=== PATIENT | male | born 1985 | race Caucasian/White ===

== ENCOUNTER 2021-04-10 09:28 | Inpatient (IN) | payer MEDICAID, SELFPAY ==
[2021-04-10] VITALS (22 sets, daily range): BP systolic 104–148; BP diastolic 72–93; PULSE 93–139; RESP 16–30; TEMP 36.9–37; O2SAT 96–100; BMI 24.8
--- NOTE | ~2021-04-10 | CT_ITS ---
EXAMINATION: CT chest abdomen pelvis wo con EXAM DATE: 04/10/2021 12:16 INDICATION: Ascites, rule out cirrhosis, hyperbilirubinemia . Vomiting, hematemesis for 2 days. Cirrh osis, black stools, abdominal distention. TECHNIQUE: Spiral CT of the chest, abdomen and pelvis was performed without contrast. Axial, baird l and sagittal images chest, abdomen and pelvis were reviewed. Coronal maximum intensity pixel image s of chest reviewed. The dose-length product (DLP) for this examination was 802.89 mGy-cm. The expo sure was tailored according to patient size (auto mA exposure control), and iterative reconstruction (ASIR) was used as additional dose reduction technique. There is no prior study for comparison. FINDINGS: CHEST: Right upper lobe cystic region measuring 3.5 cm without wall thickening, likely postinfectiou s. Some adjacent apical scarring. There are no pleural or pericardial effusions. Tracheobronchial tree is patent. There is no mediastinal, hilar or axillary lymphadenopathy. There is no pneumotho rax. Heart normal in size. No evidence of coronary arterial calcification. There is mild wall th ickening of the distal aspect of the esophagus, more likely esophagitis than cancer. ABDOMEN PELVIS: Atrophic liver, cirrhosis, hepatic steatosis, regenerating nodules and large amount o f ascites. Spleen, pancreas, adrenal glands are unremarkable. The gallbladder is moderately distended but otherwise unremarkable. There is no biliary duct dilation. There is no nephrolithiasis or hydr onephrosis. The prostate is unremarkable. The bladder is unremarkable. There is no retroperitonea l or pelvic lymphadenopathy. Small inguinal fat-containing hernias. Normal appendix is identified. Several loops of jejunum with air-fluid levels and moderate distentio n at 3.5 cm, probably ileus. There is expected amount of colonic stool. No free intraperitoneal ga s. The bones are unremarkable. IMPRESSION: 1. Mild distal esophageal wall thickening more likely esophagitis than cancer. 2. Cirrhosis, hepatic steatosis, regenerating nodules and large amount of ascites. 3. Several moderately distended jejunal loops probably ileus. 4. Gallbladder moderately distended but no calcified cholelithiasis. Please note that sensitivity fo r acute abdominal process is decreased due to ascites, mesenteric edema. Reviewed, dictated and finalized at location B. IMPRESSION: 1. Mild distal esophageal wall thickening more likely esophagitis than cancer. 2. Cirrhosis, hepatic steatosis, regenerating nodules and large amount of asci noman. 3. Several moderately distended jejunal loops probably ileus. 4. Gallbladder moderately distended but no calcified cholelithiasis. Please no te that sensitivity for acute abdominal process is decreased due to ascites, me senteric edema.
--- NOTE | ~2021-04-10 | US_ITS ---
EXAMINATION: US paracentesis abd w/image DATE: 04/10/2021 16:11 INDICATION: Ascites. TECHNIQUE: The procedure and its risks and benefits were discussed with the patient. Potential risks discussed included bleeding and infection. The skin was prepped and draped in sterile fashion. 1% lid ocaine was used for local anesthesia. Under ultrasound guidance, a 5 Fr catheter with trochar was adv anced into the ascites in the left lower quadrant. Fluid was aspirated into vacuum bottles. The kenya ter was removed, and a dressing was applied. There were no immediate complications. FINDINGS: Ultrasound images demonstrate ascites and the catheter within the fluid. IMPRESSION: 1. Successful ultrasound-guided paracentesis yielding 5000 mL of yellow fluid. Reviewed, dictated and finalized at location A.
--- NOTE | 2021-04-10 09:30 | ECG_ITS ---
Measurements Intervals [place] Rate: 135 P: 21 NH: 118 QRS: 12 QRSD: 94 T: 27 QT: 295 QTc: 442 Interpretive Statements SINUS TACHYCARDIA WITH SHORT NH INTERVAL BORDERLINE R WAVE PROGRESSION, ANTERIOR LEADS BORDERLINE T WAVE ABNORMALITY- INFERIOR LEADS ABNORMAL ECG Electronically Signed On 04-10-2021 10:53:23 CDT by Carl Fitzgerald D.O.
[2021-04-10 09:48] LABS: Hematocrit 34.1 % (42.0-52.0); Hemoglobin 11.7 g/dL (14.0-18.0); Mean Corpuscular HGB Conc 34.3 g/dl (32-36); Mean Corpuscular Hemoglobin 37.1 pg (26-34); Mean Corpuscular Volume 108.3 fl (80-100); Mean Platelet Volume 9.7 fl (7.4-10.4); Platelet Count Result 179 k/mm3 (150-375); Red Blood Count 3.15 M/mm3 (4.6-6.20); Red Cell Distribution Width 16.2 % (11.5-14.5); White Blood Count 12.6 K/mm3 (4.5-10.0)
--- NOTE | 2021-04-10 09:50 | PC.NURSE ---
Emesis of approx 100ml of dark red blood. NS and Zofran given as ordered.
[2021-04-10 10:00] LABS: Anion Gap 8 mmol/L (8-16); Bilirubin,Total 8.8 mg/dL (0.2-1.3); Blood Urea Nitrogen 15 mg/dL (9-20); Calcium 8.6 mg/dL (8.4-10.2); Carbon Dioxide 27 mmol/L (22-30); Chloride 96 mmol/L (98-107); Estimated CRCL calculation 159 ml/min; Estimated Glomerular Filt Rate > 60; Glucose 105 mg/dL (75-110); Potassium 4.7 mmol/L (3.4-5.0); Sodium 131 mmol/L (137-145)
--- NOTE | 2021-04-10 10:00 | ED.GENADULT ---
HPI - General Adult General Chief complaint: Nausea/Vomiting/Diarrhea Stated complaint: vomiting Time Seen by Provider: 04/10/21 09:30 Source: patient, EMS and RN notes reviewed Mode of arrival: EMS Limitations: no limitations History of Present Illness HPI narrative: Patient is 35 years old white male brought to the ED by ambulance complaining of vomiting blood for the last 2 days. Abdominal distention for the last 3 days. Black stool for the last 3 days. Patient denies having similar symptoms in the past. Patient quit smoking 1 month ago, drinks alcohol 2-3 times a week. Patient is telling me that liver cirrhosis runs in his family. Patient moved from [place] to [place] 2 years ago, works at [employer], lives alone. Last alcohol intake 2 days ago. Patient denies any fever or chills. Related Data Home Medications Medication Instructions Recorded Confirmed No Home Medications 04/10/21 04/10/21 Allergies Allergy/AdvReac Type Severity Reaction Status Date / Time No Known Allergies Allergy Verified 04/10/21 09:32 Review of Systems Review of Systems: Narrative: CONSTITUTIONAL: Denies fever, chills, or sweats. EYES: Denies visual changes, redness, or discharge. ENT: Denies rhinorrhea, congestion, sore throat, or otalgia. CARDIOVASCULAR: Denies chest pain, palpitations, or edema. RESPIRATORY: Denies cough or dyspnea. GASTROINTESTINAL: Denies abdominal pain, nausea, vomiting, or diarrhea. GENITOURINARY: Denies dysuria or hematuria. SKIN: Denies rash or itching. MUSCULOSKELETAL: Denies back pain, joint pain, or myalgia. NEUROLOGIC: Denies headache, numbness, or weakness. PSYCHIATRIC: Denies anxiety or depression. Exam Narrative: Exam Narrative: General appearance: Well-developed, well-nourished, sick looking Skin: Pale Head: Normocephalic, nontraumatic Eyes: Clear conjunctiva ENT: Oropharynx normal, ears normal, nose normal Neck: Supple, nontender Chest and respiratory: Airway patent, no respiratory distress, no accessory muscle use Heart: Tachycardia Abdomen: Distended abdomen, consistent with ascitis Vascular: Normal peripheral pulses, normal capillary refill. Musculoskeletal: Normal range of motion, nontender back Neurologic: Alert and oriented ?3, COMPLIANCE PROJECT MANAGER is normal as tested, no gross motor deficit Course Course Emergency Course: Guarded Consultations Consultation #1: DR Cat Date: 04/10/21 Time: 10:06 Consultation #2: DR ANDINO Date: 04/10/21 Time: 11:12 Vital Signs Vital signs: Vital Signs Temperature 36.9 C 04/10/21 09:26 Pulse Rate 139 H 04/10/21 09:26 Respiratory Rate 28 H 04/10/21 09:26 Blood Pressure 148/93 H 04/10/21 09:26 Pulse Oximetry 100 04/10/21 09:26 Temperature 36.9 C 04/10/21 09:26 Pulse Rate 139 H 04/10/21 09:26 Respiratory Rate 28 H 04/10/21 09:26 Blood Pressure 148/93 H 04/10/21 09:26 Pulse Oximetry 100 04/10/21 09:26 Medical Decision Making MDM Narrative Medical decision making narrative: Patient have history of alcohol abuse. Liver cirrhosis, esophageal varices, alcoholic gastritis and hepatitis are my concern. Labs, IV fluid, IV Protonix, IV octreotide IV Ativan ordered. Further plan to follow Differential Diagnosis Differential Diagnosis: Peptic ulcer disease, esophageal varices, liver cirrhosis, alcoholic hepatitis, alcoholic gastritis Vital Signs Vital Signs: Vital Signs Temperature 36.9 C 04/10/21 09:26 Pulse Rate 139 H 04/10/21 09:26 Respiratory Rate 28 H 04/10/21 09:26 Blood Pressure 148/93 H 04/10/21 09:26 Pulse Oximetry 100 04/10/21 09:26 Temperature 36.9 C 04/10/21 09:26 Pulse Rate 139 H 04/10/21 09:26 Respiratory Rate 28 H
[2021-04-10 10:01] LABS: Alanine Aminotransferase 51 U/L (4-50); Albumin Level 2.9 g/dL (3.5-5.1); Alkaline Phosphatase 139 U/L (38-126); Aspartate Amino Transferase 156 U/L (17-59); Lipase 176 U/L (23-300)
[2021-04-10] MEDS: PANTOPRAZOLE SODIUM IV 40 MG VIAL 80 MG IV PUSH (10:04)
[2021-04-10] MEDS: SODIUM CHLORIDE 0.9% IV 1,000 ML 999 ML IV CONT ×2 (10:04→10:05)
[2021-04-10] MEDS: LORazepam INJ (*CRX) 2 MG/ML VIAL 1 MG IV PUSH (10:04)
[2021-04-10] MEDS: ONDANSETRON INJ 4 MG/2 ML VIAL 8 MG IV PUSH (10:05)
[2021-04-10 10:10] LABS: Lymphocytes Absolute Manual 0.88 K/mm3 (1.1-4.5); Monocytes Absolute Manual 1.51 K/mm3 (0.1-0.90); Monocytes Percent Manual 12 % (3-9); Neutrophils Percent Manual 81 % (46-73); Total Cells Counted 100
[2021-04-10] MEDS: OCTREOTIDE ACETATE 50 MCG/ML VIAL IV PUSH (10:10)
[2021-04-10 10:11] LABS: Macrocytosis 1+ (NORMAL); Platelet Estimate Adequate (Adequate)
[2021-04-10 10:12] LABS: Poikilocytosis 2+ (NORMAL); Stomatocytes 1+ (NORMAL); Target Cells 1+ (NORMAL)
[2021-04-10 10:14] LABS: INR 1.4; Partial Thromboplastin Time 34.1 SECONDS (22.3-36.8); Prothrombin Time 17.7 Seconds (11.1-14.7)
[2021-04-10 10:19] LABS: Ethanol < 10 mg/dL (<10)
[2021-04-10 10:31] LABS: Add Urine Microscopic? YES; Appearance Urine Clear (Clear); Bilirubin Urine 2+ (Negative); Blood Urine Negative (Negative); Color Urine Amber (Yellow); Glucose Urine UA Negative (Negative); Ketones Urine 1+ mg/dL (Negative); Leukocyte Esterase Ur Negative LEU/UL (Negative); Mucus Urine Heavy /lpf; Nitrate Urine Negative (Negative); Protein Urine 2+ mg/dL (Negative); RBC Urine 0-2 /hpf (0-2); Squamous Epithelial Cell Urine Rare /hpf (Few); WBC Urine 0-3 /hpf
[2021-04-10 10:33] LABS: Specific Grav Ur 1.034 (1.001-1.035)
[2021-04-10 10:48] LABS: Amphetamine Screen Urine Negative (Negative); Barbiturate Screen Urine Negative (Negative); Benzodiazepines Screen Urine Negative (Negative); Cannabinoid Screen Urine Negative (Negative); Cocaine Screen Urine Negative (Negative); Methadone Screen Urine Negative (Negative); Opiate Screen Urine Negative (Negative); Phencyclidine Screen Urine Negative (Negative)
[2021-04-10 10:54] LABS: Hematocrit 30.7 % (42.0-52.0); Hemoglobin 10.7 g/dL (14.0-18.0)
--- NOTE | 2021-04-10 11:30 | ADMGEN ---
This patient, Lukas Diaz, was admitted to Intensive Care Unit-1. Patient/family oriented to hospital policies and general routines including ID bracelet, bed and alarms, visiting hours, pain management, procedures, bathroom and other care routines, personal items, smoking policy, room service/diet, and visiting hours. Information on how to activate the Rapid Response Team has been discussed. Patient/Family are encouraged to report perceived risks to care and to ask questions if they do not understand what they are told or what they should do.
[2021-04-10] MEDS: THIAMINE HCL INJ 100 MG, FOLIC ACID INJ 1 MG, MULTIVITAMINS-12 INJ VIAL 1 5 ML, MULTIVI... IV CONT (11:37)
--- NOTE | 2021-04-10 11:50 | WPDINTPN ---
Progress Note: A&P Assessment and Plan (1) Acute GI bleeding: Code(s): K92.2 - Gastrointestinal hemorrhage, unspecified Status: Acute (2) Ascites: Qualifiers: Ascites type: due to alcoholic hepatitis Qualified Code(s): K70.11 - Alcoholic hepatitis with ascites Code(s): R18.8 - Other ascites Status: Acute (3) Hyperbilirubinemia: Code(s): E80.6 - Other disorders of bilirubin metabolism Status: Acute (4) Alcoholic hepatitis: Code(s): K70.10 - Alcoholic hepatitis without ascites Status: Acute Assessment and Plan: Discriminant factor 39.6 and MELD score of 22 Subjective Date/time seen: 04/10/21 11:50 Interval history: Hematemesis Objective Data Vital Signs Vital Signs: Vital Signs - 24 hr 04/10/21 09:26 04/10/21 09:38 04/10/21 09:45 Temperature 98.5 F Pulse Rate 139 H 138 H 139 H Respiratory Rate 28 H 23 H 16 Blood Pressure 148/93 H Pulse Oximetry 100 100 04/10/21 10:01 04/10/21 10:09 04/10/21 10:10 Temperature Pulse Rate 130 H 130 H 135 H Respiratory Rate 25 H 27 H 30 H Blood Pressure 133/91 H Pulse Oximetry 100 100 99 04/10/21 10:15 04/10/21 10:33 04/10/21 10:47 Temperature Pulse Rate 110 H 118 H 118 H Respiratory Rate 19 19 22 H Blood Pressure 140/93 H Pulse Oximetry 98 100 100 04/10/21 10:51 04/10/21 11:00 04/10/21 11:02 Temperature Pulse Rate 114 H 122 H 119 H Respiratory Rate 20 26 H 25 H Blood Pressure Pulse Oximetry 99 98 100 04/10/21 11:06 04/10/21 11:34 Temperature Pulse Rate 118 H 112 H Respiratory Rate 24 H 17 Blood Pressure 128/89 120/82 Pulse Oximetry 100 100 Intake/Output Intake/Output: Intake & Output 04/07/21 04/08/21 04/09/21 04/10/21 23:59 23:59 23:59 23:59 Intake Total 1999 Balance 1999 Meds/Results Medications: Active Medications Generic Name Dose Route Start Last Admin Trade Name Freq PRN Reason Stop Dose Admin Octreotide Acetate 500 mcg/ 100 mls @ 10 mls/hr 04/10/21 09:55 04/10/21 10:49 Dextrose IV CONT 50 mcg/hr .Q10H LIDA 10 mls/hr Administration 50 MCG/HR Thiamine HCl 100 mg/ Folic 1,013.2 mls @ 100 mls/hr 04/10/21 10:23 04/10/21 11:37 Acid 1 mg/ Multivitamins 5 ml/ IV CONT 04/10/21 20:30 100 mls/hr Multivitamins 5 ml/ Magnesium .Q10H8M ONE Administration Sulfate 1 gm/ Dextrose/ Lactated Ringer's Sodium Chloride 1,000 mls @ 200 mls/hr 04/10/21 10:25 Normal Saline Iv IV CONT .Q5H LIDA Ondansetron HCl 4 mg 04/10/21 10:24 Ondansetron Inj 4 Mg/2 Ml Vial IV PUSH Q4H PRN Nausea Pantoprazole Sodium 40 mg 04/11/21 09:00 Pantoprazole Sodium Iv 40 Mg Vial IV PUSH QAM [facility] Labs Labs: Laboratory Results - last 24 hr 04/10/21 04/10/21 04/10/21 09:37 09:38 09:38 WBC 12.6 H RBC 3.15 L Hgb 11.7 L Hct 34.1 L MCV 108.3 H MCH 37.1 H MCHC 34.3 RDW 16.2 H Plt Count 179 MPV 9.7 Immature Gran % (Auto) Not Reportable Neut % (Auto) Not Reportable Lymph % (Auto) Not Reportable Wayne % (Auto) Not Reportable Eos % (Auto) Not Reportable Baso % (Auto) Not Reportable Lymph # (Auto) Not Reportable Wayne # (Auto) Not Reportable Eos # (Auto) Not Reportable Baso # (Auto) Not Reportable Abs Immat Gran (auto) Not Reportable Absolute Neuts (auto) Not Reportable Absolute Nucleated RBC Not Reportable Total Counted 100 Neutrophils % (Manual) 81 H Lymphocytes % (Manual) 7.0 L Monocytes % (Manual) 12 H Nucleated RBC % Not Reportable Abs Lymphs (Manual) 0.88 L Abs Monocytes (Manual) 1.51 H Platelet Estimate Adequate Poikilocytosis 2+ Macrocytosis 1+ Target Cells 1+ Stomatocytes 1+ PT 17.7 H INR 1.4 APTT 34.1 Sodium Potassium Chloride Carbon Dioxide Anion Gap BUN Creatinine Estim Creat Clear Calc Estimated GFR Glucose Calcium Total
--- NOTE | 2021-04-10 12:13 | WPDCNINT ---
Assessment and Plan Assessment and plan (1) Acute GI bleeding: Code(s): K92.2 - Gastrointestinal hemorrhage, unspecified Status: Acute Assessment and Plan: Hematemesis and melena per patient. For 2-3 days -likely variceal bleed, esophagitis, gastritis, ulcers -continue octreotide and PPI infusion -GI has been consulted, await evaluation and recommendation (2) Hematemesis: Code(s): K92.0 - Hematemesis Status: Acute Assessment and Plan: Will monitor hemoglobin every 6 hours -will transfuse as needed (3) Alcoholic hepatitis: Code(s): K70.10 - Alcoholic hepatitis without ascites Status: Acute Assessment and Plan: CT scan of the abdomen and pelvis 04/10/2021: 1. Mild distal esophageal wall thickening more likely esophagitis than cancer. 2. Cirrhosis, hepatic steatosis, regenerating nodules and large amount of ascites. 3. Several moderately distended jejunal loops probably ileus. 4. Gallbladder moderately distended but no calcified cholelithiasis. Please note that sensitivity for acute abdominal process is decreased due to ascites, mesenteric edema Meld score of 22 (4) Ascites: Qualifiers: Ascites type: due to alcoholic hepatitis Qualified Code(s): K70.11 - Alcoholic hepatitis with ascites Code(s): R18.8 - Other ascites Status: Acute Assessment and Plan: Abdomen firm and distended with large amount of ascites as seen on the CT scan of the abdomen and pelvis -will have interventional radiology perform paracentesis orders have fluid analysis, cytology, Gram stain and culture have been ordered (5) Hyperbilirubinemia: Code(s): E80.6 - Other disorders of bilirubin metabolism Status: Acute Assessment and Plan: Hyperbilirubinemia secondary to hepatic steatosis cirrhosis, alcoholic hepatitis (6) Alcohol abuse: Code(s): F10.10 - Alcohol abuse, uncomplicated Status: Acute Assessment and Plan: Patient with history of alcohol use, last drink 2 days ago. Patient states he drinks occasionally and socially. Large binge drinking was on Additional Plan DVT prophylaxis: SCDs Stress ulcer prophylaxis: Protonix infusion Discussed with patient at length and updated with his condition and plan of care. He is aware that he is on multiple infusion for possible variceal bleed versus GI bleed secondary to ulcer, gastritis, esophagitis. He is also aware that he may be getting a paracentesis is his CT scan shows large amount of ascites. Code status: Full code Critical care time spent: 45 minutes This dictation may have been done utilizing a voice recognition system. Attempts have been made to correct errors. However, there may be uncorrected grammatical, spelling, and recognition errors present. Due to a high probability of clinically significant, life threatening deterioration, the patient required my highest level of preparedness to intervene emergently and I personally spent this critical care time directly and personally managing the patient. This critical care time included obtaining a history; examining the patient; pulse oximetry; ordering and review of studies; arranging urgent treatment with development of a management plan; evaluation of patient's response to treatment; frequent reassessment; and discussions with other providers. It was exclusive of separately billable procedures and treating other patients and teaching time. Please see Assessment and Plan section and the rest of the note for further information on patient assessment and treatment Tool And Die Manager Consult Note Consult date: 04/10/21 Time Seen: 11:38 Reason for consult: Hematemesis, melena, abdominal distension, hyperbilirubinemia, elevated LFTs HPI: Lukas Diaz is a 35 year old male with no past medical history stents to the ED on 04/10/2021 with complaints of hematemesis x2 days melena x3 days and abdominal distention x3 days. He warner
[2021-04-10] MEDS: SODIUM CHLORIDE 0.9% IV 500 ML 999 ML IV CONT (13:04)
--- NOTE | 2021-04-10 13:05 | PM.IMHP ---
H&P: HPI History of Present Illness Date/Time: 04/10/21 1230 this is a 35-year-old male patient who has a history of alcoholism. The patient was brought to the emergency room by ambulance due to hematemesis and melena. The patient stated that he has been vomiting blood for the last 2 days and had some abdominal distention for at least 3 days. He also noted black stools for last 3 days. He denies ever having any colonoscopy or EGD. He does not have a GI specialist. The patient states that he drinks alcohol 2 to 3 times a week. He typically drinks 6 pt of beer a day over an 8 hour on those 2 to 3 times a week that he does drink. The patient stated that he has never been diagnosed with cirrhosis of the liver. He states that his mother and her father had not alcoholic liver disease. Patient's hemoglobin initially was 11.7 and then he received some fluids and his hemoglobin dropped down to 10.7. Total bili room 8.8. AST 156. ALT 51. Alkaline phosphatase 139. Albumin 2.9. Urine bili room 2+. Urine uro bilirubin 4.0. CT was read as the following 1. Mild distal esophageal wall thickening more likely esophagitis than cancer. 2. Cirrhosis, hepatic steatosis, regenerating nodules and large amount of ascites. 3. Several moderately distended jejunal loops probably ileus. 4. Gallbladder moderately distended but no calcified cholelithiasis. Please note that sensitivity for acute abdominal process is decreased due to ascites, mesenteric edema. The patient was admitted to ICU in the power house engineer has been consulted. Octreotide drip was started. Protonix drip was started and he was given a banana bag in the emergency. Patient is being admitted to inpatient status and I see on the date of service of 04/10/2020 Chief Complaint: gi bleed Review of Systems Review of Systems: All systems reviewed & are unremarkable except as noted in HPI and below Constitutional: Constitutional: Reports as per HPI and Reports no additional constitutional complaints Eyes: Eyes: Reports as per HPI and Reports no additional eye complaints ENT: Reports system reviewed and no additional complaints, except as documented and Reports Normal hearing present Cardiovascular: Cardiovascular: Reports no additional cardiovascular complaints Respiratory: Respiratory: Reports no additional respiratory complaints and Reports no additional respiratory complaints Gastrointestinal: Gastrointestinal: Reports as per HPI and Reports no additional gastrointestinal complaints Musculoskeletal: Musculoskeletal: Reports no additional musculoskeletal complaints Integumentary/Breasts: Skin/Breast: Reports system reviewed and no additional complaints, except as docu and Reports as per HPI Neurologic: Reports system reviewed and no additional complaints, except as documented, Reports as per HPI and Reports Normal hearing present Psychiatric: Psychiatric: Reports no additional psychiatric complaints and Reports as per HPI Endocrine: Endocrine: Reports no additional endocrine complaints Hematologic/Lymphatic: Hematologic/Lymphatic: Reports no additional hematologic/lymphatic complaints Allergic/Immunologic: Allergic/Immunologic: Reports no additional allergic/immunologic complaints FOR[facility]LY [facility], [facility] Past Medical History Medical History (Updated 04/10/21 @ 13:28 by Willa Dominguez NP) Alcohol abuse Alcoholic hepatitis Tobacco abuse Surgical History Surgical History (Updated 04/10/21 @ 13:28 by Willa Dominguez NP) No pertinent past surgical history Family History Family History (Updated 04/10/21 @ 13:29 by Willa Dominguez NP) Mother Liver disease Other Cirrhosis Social History Social History (Updated 04/10/21 @ 13:30 by Willa Dominguez NP) Social History: The patient stated that he just quit smoking approximately 1 month ago. The patient had started smoking when he was 10 years old. The patient denies any alcohol or illicit drugs. The patient states that he drinks 6 pt of a
[2021-04-10 13:34] LABS: Albumin Level 2.9 g/dL (3.5-5.1)
[2021-04-10 17:09] LABS: Hematocrit 27.9 % (42.0-52.0); Hemoglobin 9.4 g/dL (14.0-18.0)
[2021-04-10 17:46] LABS: Appearance Peritoneal Fluid Cloudy (Clear); Color Peritoneal Fluid Yellow (Colorless); Neutrophils Peritoneal Fluid 47 % (0-25); Nucleated Cells Peritoneal Flu 324 /uL (0-500); RBC Peritoneal Fluid 0 /uL (0-100000); Source Peritoneal Fluid Peritoneal Fluid
[2021-04-10 17:47] LABS: Eosinophils Peritoneal Fluid 0 %; Lymphocytes Peritoneal Fluid 3 %; Macrophages Peritoneal Fluid 41 %; Mesothelial Cells Peritoneal Fluid 9 %; Monocytes Peritoneal Fluid 0 %; Other Cells Peritoneal Fluid 0 %
[2021-04-10 22:34] LABS: Hematocrit 29.2 % (42.0-52.0)
[2021-04-11] VITALS (14 sets, daily range): BP systolic 82–124; BP diastolic 49–91; PULSE 87–102; RESP 12–21; TEMP 36.4–36.9; O2SAT 96–100
[2021-04-11 05:23] LABS: Basophils Absolute Auto 0.1 K/mm3 (0.0-0.1); Eosinophils Absolute Auto 0.1 K/mm3 (0-0.3); Hematocrit 30.5 % (42.0-52.0); Hemoglobin 10.5 g/dL (14.0-18.0); Immature Granulocyte Absolute 0.08 K/mm3 (0.00-0.031); Immature Granulocyte Percent A 0.8 % (0-0.5); Lymphocytes Absolute Auto 1.28 K/mm3 (0.9-3.2); Lymphocytes Percent Auto 13.2 % (18.3-44.2); Mean Corpuscular HGB Conc 34.4 g/dl (32-36); Mean Corpuscular Hemoglobin 37.5 pg (26-34); Mean Corpuscular Volume 108.9 fl (80-100); Mean Platelet Volume 9.3 fl (7.4-10.4); Monocytes Absolute Auto 1.2 K/mm3 (0.1-0.6); Platelet Count Result 160 k/mm3 (150-375); Red Cell Distribution Width 16.5 % (11.5-14.5); White Blood Count 9.7 K/mm3 (4.5-10.0)
[2021-04-11 05:37] LABS: Alanine Aminotransferase 45 U/L (4-50); Albumin Level 2.4 g/dL (3.5-5.1); Alkaline Phosphatase 109 U/L (38-126); Anion Gap 5 mmol/L (8-16); Aspartate Amino Transferase 141 U/L (17-59); Bilirubin,Total 7.6 mg/dL (0.2-1.3); Blood Urea Nitrogen 10 mg/dL (9-20); Calcium 7.7 mg/dL (8.4-10.2); Carbon Dioxide 26 mmol/L (22-30); Chloride 102 mmol/L (98-107); Estimated CRCL calculation 135 ml/min; Estimated Glomerular Filt Rate > 60; Glucose 80 mg/dL (75-110); Magnesium 2.1 mg/dL (1.6-2.3); Phosphorus 2.9 mg/dL (2.5-4.5); Potassium 3.6 mmol/L (3.4-5.0); Sodium 133 mmol/L (137-145)
[2021-04-11 05:38] LABS: Lactic Acid Reflex 1.5 mmol/L (0.7-2.1)
[2021-04-11 06:12] LABS: INR 1.5; Partial Thromboplastin Time 34.9 SECONDS (22.3-36.8); Prothrombin Time 19.1 Seconds (11.1-14.7)
[2021-04-11 07:08] LABS: Hepatitis B Surface Antigen Negative (Negative)
[2021-04-11 07:13] LABS: HAV RESULT Negative (Negative); Hepatitis B Core IgM Result Negative (Negative)
[2021-04-11 07:25] LABS: Hepatitis C Virus Antibody Negative (Negative)
[2021-04-11] MEDS: ALBUMIN HUMAN 25% 25 GM/100 ML 100 ML IVPB (08:18)
[2021-04-11] MEDS: ONDANSETRON INJ 4 MG/2 ML VIAL IV PUSH (08:31)
--- NOTE | 2021-04-11 09:12 | WPDINTPN ---
Progress Note: A&P Assessment and Plan (1) Acute GI bleeding: Code(s): K92.2 - Gastrointestinal hemorrhage, unspecified Status: Acute Assessment and Plan: Hematemesis and melena per patient. For 2-3 days -likely variceal bleed, esophagitis, gastritis, ulcers -continue octreotide and PPI infusion -GI has been consulted, await evaluation and recommendation -hemoglobin has been stable episodes of hematemesis overnight (2) Hematemesis: Code(s): K92.0 - Hematemesis Status: Acute Assessment and Plan: Will monitor hemoglobin every 6 hours -will transfuse as needed (3) Alcoholic hepatitis: Code(s): K70.10 - Alcoholic hepatitis without ascites Status: Chronic Assessment and Plan: CT scan of the abdomen and pelvis 04/10/2021: 1. Mild distal esophageal wall thickening more likely esophagitis than cancer. 2. Cirrhosis, hepatic steatosis, regenerating nodules and large amount of ascites. 3. Several moderately distended jejunal loops probably ileus. 4. Gallbladder moderately distended but no calcified cholelithiasis. Please note that sensitivity for acute abdominal process is decreased due to ascites, mesenteric edema Meld score of 22 (4) Ascites: Qualifiers: Ascites type: due to alcoholic hepatitis Qualified Code(s): K70.11 - Alcoholic hepatitis with ascites Code(s): R18.8 - Other ascites Status: Acute Assessment and Plan: Abdomen firm and distended with large amount of ascites as seen on the CT scan of the abdomen and pelvis -status post ultrasound-guided paracentesis by Interventional Radiology removal of 5 times in the limb fluid -given albumin this morning (5) Hyperbilirubinemia: Code(s): E80.6 - Other disorders of bilirubin metabolism Status: Acute Assessment and Plan: Hyperbilirubinemia secondary to hepatic steatosis cirrhosis, alcoholic hepatitis -improving (6) Alcohol abuse: Code(s): F10.10 - Alcohol abuse, uncomplicated Status: Chronic Assessment and Plan: Patient with history of alcohol use, last drink 2 days ago. Patient states he drinks occasionally and socially. Large binge drinking was on -continue folic acid and thiamine -will watch for alcohol withdrawal/DTs Additional Plan DVT prophylaxis: SCDs Stress ulcer prophylaxis: Protonix infusion Discussed with patient updated with his condition and plan of care. I answered all questions. Code status: Full code Critical care time spent: 34 minutes This dictation may have been done utilizing a voice recognition system. Attempts have been made to correct errors. However, there may be uncorrected grammatical, spelling, and recognition errors present. Due to a high probability of clinically significant, life threatening deterioration, the patient required my highest level of preparedness to intervene emergently and I personally spent this critical care time directly and personally managing the patient. This critical care time included obtaining a history; examining the patient; pulse oximetry; ordering and review of studies; arranging urgent treatment with development of a management plan; evaluation of patient's response to treatment; frequent reassessment; and discussions with other providers. It was exclusive of separately billable procedures and treating other patients and teaching time. Please see Assessment and Plan section and the rest of the note for further information on patient assessment and treatment Subjective Date/time seen: 04/11/21 09:12 Interval history: Reason for consult: Hematemesis, melena, abdominal distension, hyperbilirubinemia, elevated LFTs -04/10/2021 paracentesis per IR, removal of 500o mL of fluid 04/11/2021: Patient seen and examined the ICU. Patient denies any chest pain, shortness of breath, abdominal pain, nausea vomiting. Feels better this morning. Had paracentesis done yesterday with removal
[2021-04-11] MEDS: LACTATED RINGERS 1,000 ML 150 ML IV CONT (10:51)
--- NOTE | 2021-04-11 11:40 | WPDANESEPPF ---
Anes - Initial Pre Proc Eval Procedure: Operation Date: 04/11/21 12:30 Proposed Procedures p Esophagogastroduodenoscopy - Eric Oconnell MD Date/Time: 04/11/21 11:40 Surgeon: Karsten Gottlieb MD Pre Op Diagnosis: GI Bleed, Hematemesis, Sinus Tachy, Hyperbili, Patient Data Age: 35 Gender: M Height: 5 ft 7 in Weight: 73.2 kg Last Vital Signs Temp 97.8 F 04/11/21 10:00 Pulse 93 04/11/21 10:57 Resp 18 04/11/21 10:57 BP 111/78 04/11/21 10:57 Pulse Ox 100 04/11/21 10:57 Allergies Allergy/AdvReac Type Severity Reaction Status Date / Time No Known Allergies Allergy Verified 04/11/21 10:53 Home Medications Medication Instructions Recorded Confirmed Type No Home Medications 04/10/21 04/10/21 History Laboratory Tests 04/10/21 04/10/21 04/10/21 09:37 15:20 15:20 WBC RBC Hgb Hct MCV MCH MCHC RDW Plt Count MPV Immature Gran % (Auto) Neut % (Auto) Lymph % (Auto) Anson % (Auto) Eos % (Auto) Baso % (Auto) Lymph # (Auto) Anson # (Auto) Eos # (Auto) Baso # (Auto) Abs Immat Gran (auto) Absolute Neuts (auto) Absolute Nucleated RBC Nucleated RBC % PT INR APTT Sodium Potassium Chloride Carbon Dioxide Anion Gap BUN Creatinine Estim Creat Clear Calc Estimated GFR Glucose Lactic Acid Calcium Phosphorus Magnesium Total Bilirubin AST ALT Alkaline Phosphatase Total Protein Albumin 2.9 g/dL L g/dL (3.5-5.1) Peritoneal Source Peritoneal fluid Peritoneal Color Yellow (Colorless) Peritoneal Appearance Cloudy A (Clear) Peritoneal RBC 0 /uL /uL ([id number]) Periton Nuc Cells 324 /uL /uL (0-500) Periton Neutrophils 47 % H % (0-25) Periton Lymphocytes 3 % % Peritoneal Monocytes 0 % % Peritoneal Eosinophils 0 % % Periton Mesothelial 9 % % Periton Macrophages 41 % % Peritoneal Other Cells 0 % % Peritoneal Tot Protein Peritoneal Albumin Pending Peritoneal LDH Peritoneal Glucose Peritoneal Amylase Pending Hepatitis A IgM Ab Hep Bs Antigen Hep B Core IgM Ab Hepatitis C Ab Screen 04/10/21 04/10/2104/10/21 15:20 17:00 22:27 WBC RBC Hgb 9.4 g/dL L g/dL 10.0 g/dL L g/dL (14.0-18.0) (14.0-18.0) Hct 27.9 % L % 29.2 % L % (42.0-52.0) (42.0-52.0) MCV MCH MCHC RDW Plt Count MPV Immature Gran % (Auto) Neut % (Auto) Lymph % (Auto) Anson % (Auto) Eos % (Auto) Baso % (Auto) Lymph # (Auto) Anson # (Auto) Eos # (Auto) Baso # (Auto) Abs Immat Gran (auto) Absolute Neuts (auto) Absolute Nucleated RBC Nucleated RBC % PT INR APTT Sodium Potassium Chloride Carbon Dioxide Anion Gap BUN Creatinine Estim Creat Clear Calc Estimated GFR Glucose Lactic Acid Calcium Phosphorus Magnesium Total Bilirubin
--- NOTE | 2021-04-11 11:59 | WPDGICN ---
Assessment and Plan Assessment and plan (1) Acute GI bleeding: Code(s): K92.2 - Gastrointestinal hemorrhage, unspecified Status: Acute Assessment and Plan: we are going to proceed with urgent EGD- differential diagnosis variceal bleeding, ulcer, esophagitis, etc continue for now on iv protonix, octreotide and antibiotics monitor h/h (2) Hematemesis: Code(s): K92.0 - Hematemesis Status: Acute Assessment and Plan: egd today, he is npo. More recommendations after scope. denies any more vomiting today (3) Acute blood loss anemia: Code(s): D62 - Acute posthemorrhagic anemia Status: Acute Assessment and Plan: monitor hb, if less than 7 then transfuse (4) Alcoholic hepatitis: Code(s): K70.10 - Alcoholic hepatitis without ascites Status: Chronic Assessment and Plan: decompensated cirrhosis (new diagnosis), already had paracentesis with 5 L removed katelynn discriminant function 35 hepatitis panel negative nutrition support, thiamine, MVI and encourage to eat (5) Ascites: Qualifiers: Ascites type: due to alcoholic hepatitis Qualified Code(s): K70.11 - Alcoholic hepatitis with ascites Code(s): R18.8 - Other ascites Status: Acute Assessment and Plan: no evidence of SBP but on antibiotics because presentation here with upper GIB if renal function tolerates then will start on low dose aldactone and lasix 2g na diet quit drinking etoh GI Consult Note Consult date/time: 04/11/21 11:59 Reason for consult: hematemesis, melena and alcoholic cirrhosis HPI: Lukas Diaz is a 35 year old male who has not seen a doctor for a while and alcoholism (2 pints every other day) who came to emergency room with new onset of hematemesis x2 days and dark tarry stools, also noted more abdominal distention with increase abdominal girth. He has never been diagnosed with liver disease, in fact does not take any medications. He was admitted to ICU, started on protonix iv, octreotide drip and rocephin. Hb 11.7, plat 170, inr 1.5, lactic 1.5, ast 150, alt 50, bili 8.8. CT scan a/p reviewed and showed mild distal esophageal wall thickening more likely esophagitis, cirrhosis, hepatic steatosis, regenerating nodules and large amount of ascites, several moderately distended jejunal loops probably ileus. Never had EGD. Review of Systems Constitutional: Constitutional: Reports weakness Eyes: Eyes: Denies blurry vision ENT: Reports Normal hearing present Cardiovascular: Cardiovascular: Denies chest pain Respiratory: Respiratory: Denies cough Gastrointestinal: Gastrointestinal: Reports melena, Reports nausea, Reports vomiting and Reports hematemesis Genitourinary: Genitourinary: Denies dysuria Musculoskeletal: Musculoskeletal: Denies neck pain Integumentary/Breasts: Skin/Breast: Denies dry skin Neurologic: Denies Abnormal speech present Psychiatric: Psychiatric: Denies confusion [facility] Past Medical History Medical History (Updated 04/11/21 @ 12:08 by Eric Oconnell MD) Acute blood loss anemia Alcohol abuse Alcoholic hepatitis Tobacco abuse Surgical History Surgical History (Updated 04/10/21 @ 13:28 by Willa Dominguez NP) No pertinent past surgical history Family History Family History (Updated 04/10/21 @ 13:29 by Willa Dominguez NP) Mother Liver disease Other Cirrhosis Social History Social History (Updated 04/10/21 @ 13:30 by Willa Dominguez NP) Social History: The patient stated that he just quit smoking approximately 1 month ago. The patient had started smoking when he was 10 years old. The patient denies any alcohol or illicit drugs. The patient states that he drinks 6 pt of alcohol a day on the days that he drinks. He typically drinks 2-3 days a week. The patient is a full code. 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 Smoking packs per day: 0.5 Smoki
[2021-04-11] MEDS: THIAMINE HCL 200 MG/2 ML VIAL 100 MG IV PUSH (13:14)
[2021-04-11] MEDS: FOLIC ACID 1 MG/0.2 ML INJ IV PUSH (15:44)
--- NOTE | 2021-04-11 16:04 | PM.DS ---
DS: Admitting Diagnosis Admitting Diagnosis Admitting Diagnosis: Hematemesis DS: Discharge Diagnosis Discharge Diagnosis (1) Acute GI bleeding: Code(s): K92.2 - Gastrointestinal hemorrhage, unspecified Status: Acute (2) Hematemesis: Code(s): K92.0 - Hematemesis Status: Acute (3) Alcohol abuse: Code(s): F10.10 - Alcohol abuse, uncomplicated Status: Chronic (4) Ascites: Qualifiers: Ascites type: due to alcoholic hepatitis Qualified Code(s): K70.11 - Alcoholic hepatitis with ascites Code(s): R18.8 - Other ascites Status: Acute (5) Hyperbilirubinemia: Code(s): E80.6 - Other disorders of bilirubin metabolism Status: Acute (6) Alcoholic hepatitis: Code(s): K70.10 - Alcoholic hepatitis without ascites Status: Chronic DS: Summary Hospital Course Reason for hospitalization: 35yo male patient who has a history of alcoholism here for hematemesis and melena. please see H&P for details. Hospital Course: Patient presented to the ED by ambulance due to hematemesis and melena. The patient stated that he has been vomiting blood for the last 2 days and had some abdominal distention for at least 3 days. He also noted black stools for last 3 days. He denies ever having any colonoscopy or EGD. He does not have a GI specialist. Hemoglobin initially was 11.7 but dropped to 9.4. He did receive IV fluids. HH monitored serially and Hgb climbed to 10.5 and remained stable. He did not require transfusion. His total bili room 8.8, AST 156, ALT 51. AP 139, Albumin 2.9. CT of the Abdomen/Pelvis showing mild distal esophageal wall thickening more likely esophagitis than cancer, cirrhosis, hepatic steatosis, regenerating nodules and large amount of ascites, several moderately distended jejunal loops probably ileus and moderately distended gallbladder. Octreotide drip and Protonix drip started and he was given a banana bag in the emergency dept. The patient was admitted to ICU. Patient followed by GI and Technical Maintenance Technician. WBC mildly elevated on admission but then normalized. Plt count remained normal. PT 17.7 with INR was 1.4; PTT normal. LFTs improved on repeat. Hepatitis panel negative. UDS negative. Alcohol <10. Lipase normal. Patient underwent paracentesis with removal of 5Liters of yellowish fluid. The fluid appeared cloudy with 324 nucleated cells with 47% neutrophils (PMN 150) and 41% macrophages. Other studies pending. [place] unlikely he had SBP. 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 We stop the octreotide. He was switched to oral Protonix. Was started on Lasix and Aldactone. Was educated about the benefits of abstain from alcohol. Was explained to him in detail about the CT scan findings of cirrhosis and the risks of continuing to drink alcohol. He was also started on thiamine and folate once the banana bag was complete. No evidence of alcohol withdrawal. Patient was eating normally after his procedures with no abdominal symptoms thus felt ileus was transient. Patient overall did well. He felt comfortable for discharge. He will follow up with GI physician for close monitoring. He was able to be discharged home on 04/11/21 Status at Discharge Cognitive/behavioral status at discharge: stable Time Spent with Patient Time attestation: Total time spent providing and/or coordinating discharge services: 40 minutes Time spent: Greater than 30 minutes Specific discharge activities: Patient Education. Discussed with other providers. Exam Narrative: Exam Narrative: AF 98.3 105/75 100 13 100% ra Gen - NARD Chest - clear bilaterally. nml RR CV - RRR S1/S2; Tele showing no significant dysrhythmias Abd - Soft, mildly protuberant, mild epigastric tenderness, +BS Ext - No pedal edema. diffuse muscle wasting Psych - Nml mood and affect. no tremors. Skin
[2021-04-13 22:06] LABS: Amylase Peritoneal Fluid 26 U/L
[2021-04-15 20:27] LABS: Glucose Peritoneal Fluid 141 mg/dL; LDH Peritoneal Fluid 48 U/L (<63); Total Protein Peritoneal Fluid <3.0 g/dL
[2021-04-16 00:55] LABS: Albumin Peritoneal Fluid 0.4 g/dL
--- NOTE | 2021-04-16 11:02 | PC.NURSE ---
Peritoneal fluid cx is negative. Dr. Chery greenfield.
== END 2021-04-11 17:30 | disposition home or self-care (01) | DRG 253 ==
LOC: ANHED 11:12 → ANHICU 04-11 08:01
PROVIDERS: Internal Medicine; Internal Medicine Gastroenterology; Nurse Practitioner; Admitting Provider Internal Medicine; Emergency Provider Emergency Medicine; Visit Provider Internal Medicine
PROC: 0DJ08ZZ Inspection of Upper Intestinal Tract, Via Natural or Artificial Opening Endoscopic (ICD-10-PCS; CPT 43235; principal; 2021-04-11 12:30)
DX: K92.2 Gastrointestinal hemorrhage, unspecified (principal); D62 Acute posthemorrhagic anemia; K70.11 Alcoholic hepatitis with ascites; K70.31 Alcoholic cirrhosis of liver with ascites; F10.20 Alcohol dependence, uncomplicated; K20.90 Esophagitis, unspecified without bleeding; K44.9 Diaphragmatic hernia without obstruction or gangrene; K29.70 Gastritis, unspecified, without bleeding; K22.70 Barrett's esophagus without dysplasia; K92.0 Hematemesis; E80.6 Other disorders of bilirubin metabolism; E87.1 Hypo-osmolality and hyponatremia; Z87.891 Personal history of nicotine dependence
CPT/HCPCS: 36415; 49083; 71250; 74176; 80053; 80074; 80307; 81001; 82040; 82042; 82150; 82945; 83605; 83615; 83690; 83735; 84100; 84157; 85014; 85018; 85025; 85610; 85730; 86850; 86900; 86901; 87070; 87075; 87205; 88104; 88108; 88305; 89051; 93005; 96361; 96365; 96366; 96367; 96368; 96375; 96376; 99285; C9113; G0378; G0379; J0696; J2001; J2060; J2354; J2405; J2704; J3411; J3475; J7030; J7040; J7060; J7120; J7121; P9047

== ENCOUNTER 2021-04-20 03:37 | Inpatient (IN) | payer MEDICAID, SELFPAY ==
[2021-04-20] VITALS (21 sets, daily range): BP systolic 113–139; BP diastolic 68–97; PULSE 108–145; RESP 15–25; TEMP 36.1–37; O2SAT 96–100; BMI 26.2
--- NOTE | ~2021-04-20 | US_ITS ---
EXAMINATION: US paracentesis abd w/image DATE: 04/20/2021 15:45 INDICATION: Ascites. TECHNIQUE: The procedure and its risks, benefits, and alternatives were discussed with the patient. P otential risks discussed included bleeding and infection. The skin was prepped and draped in sterile fashion. 1% lidocaine was used for local anesthesia. Under ultrasound guidance, a 5 Fr catheter with trochar was advanced into the ascites in the left lower quadrant. Fluid was aspirated. The catheter w as removed, and a dressing was applied. There were no immediate complications. FINDINGS: Ultrasound images demonstrate ascites and the catheter within the fluid. IMPRESSION: 1. Successful ultrasound-guided paracentesis yielding 5000 mL of clear, yellow fluid. Reviewed, dictated and finalized at location A.
--- NOTE | ~2021-04-20 | CT_ITS ---
EXAMINATION: CT abdomen pelvis w con DATE: 04/20/2021 05:36 INDICATION: Lower abdominal pain. History of alcoholic hepatitis. Abdominal swelling. TECHNIQUE: Computed tomography (CT) of the abdomen and pelvis was performed without intravenous contr ast. The dose-length product was 769.54 mGy-cm. Automated exposure control and iterative reconstructi on technique were employed. COMPARISON: CT dated 04/10/2021. FINDINGS: Lung bases are unremarkable. No significant pericardial effusion. Heart size normal. There is gynecomastia. Trace pleural effusions. Markedly abnormal liver with irregular contours and heterogeneous enhancement, consistent with cirrho sis with regenerating nodules. There is recanalized periumbilical vein with gastroesophageal varices. Portal vein is patent. Spleen is unremarkable. Pancreas, adrenal glands and kidneys are unremarkable . Gallbladder is present. Nonobstructive bowel gas pattern. Large amount of ascites. No lymphadenopat hy. Bladder is decompressed by ascites. No acute osseous abnormality. Mild subcutaneous edema in the flanks. No free air. IMPRESSION: 1. Advanced cirrhosis with regenerating nodules, recanalized periumbilical vein and gastroesophageal varices. 2: Large amount of ascites with trace pleural effusions. Reviewed, dictated and finalized at location A.
--- NOTE | ~2021-04-20 | US_ITS ---
EXAMINATION: US paracentesis abd w/image DATE: 04/22/2021 12:04 INDICATION: Ascites. TECHNIQUE: The procedure and its risks and benefits were discussed with the patient. Potential risks discussed included bleeding and infection. The skin was prepped and draped in sterile fashion. 1% lid ocaine was used for local anesthesia. Under ultrasound guidance, a 5 Fr catheter with trochar was adv anced into the ascites in the left lower quadrant. Fluid was aspirated into vacuum bottles. The kenya ter was removed, and a dressing was applied. There were no immediate complications. FINDINGS: Ultrasound images demonstrate ascites and the catheter within the fluid. IMPRESSION: 1. Successful ultrasound-guided paracentesis yielding 5000 mL of clear yellow fluid. Reviewed, dictated and finalized at location A.
--- NOTE | ~2021-04-20 | US_ITS ---
EXAMINATION: US paracentesis abd w/image DATE: 04/24/2021 13:53 INDICATION: Ascites. TECHNIQUE: The procedure and its risks, benefits, and alternatives were discussed with the patient. P otential risks discussed included bleeding and infection. The skin was prepped and draped in sterile fashion. 1% lidocaine was used for local anesthesia. Under ultrasound guidance, a 5 Fr catheter with trochar was advanced into the ascites in the left lower quadrant. Fluid was aspirated. The catheter w as removed, and a dressing was applied. There were no immediate complications. FINDINGS: Ultrasound images demonstrate ascites and the catheter within the fluid. IMPRESSION: 1. Successful ultrasound-guided paracentesis yielding 3000 mL of cloudy, yellow fluid. Reviewed, dictated and finalized at location A. IMPRESSION: 1. Successful ultrasound-guided paracentesis yielding 3000 mL of cloudy, yello w fluid.
--- NOTE | 2021-04-20 03:35 | ED.ABDPAIN ---
HPI - Abdominal Pain History of Present Illness HPI narrative: 35 yo male w/ alcoholic cirrhosis presents to the ED for abdominal pain. He was admitted here for a GI bleed on 04/11. EGD showed esophagitis and Holt's without varices or ulcer. During that admission he was diagnosed with cirrhosis and required LVP. After discharge he was not able to afford his medications. He returns today with severe abdominal pain and distension. He reports rapid satiety and SOB due to the abdominal swelling. He continues to have dark stools. No more vomiting. Related Data Home Medications Medication Instructions Recorded Confirmed furosemide 40 mg PO DAILY 04/20/21 04/20/21 spironolactone [Aldactone] 50 mg PO QAM 04/20/21 04/20/21 thiamine HCl (vitamin B1) 100 mg PO DAILY 04/20/21 04/20/21 Allergies Allergy/AdvReac Type Severity Reaction Status Date / Time No Known Allergies Allergy Verified 04/20/21 03:43 Review of Systems Review of Systems: All systems reviewed & are unremarkable except as noted in HPI and below Constitutional: Constitutional: Denies chills and Denies fever(s) Cardiovascular: Cardiovascular: Denies chest pain Respiratory: Respiratory: Reports dyspnea Gastrointestinal: Gastrointestinal: Reports as per HPI Genitourinary: Genitourinary: Reports no additional male genitourinary complaints [facility] Past Medical History Medical History Acute blood loss anemia Alcohol abuse Alcoholic hepatitis Tobacco abuse Surgical History Surgical History No pertinent past surgical history Family History Family History (Updated 04/20/21 @ 06:30 by Risa Tipton RN) Mother Liver disease Cirrhosis Social History Social History Social History: The patient stated that he just quit smoking approximately 1 month ago. The patient had started smoking when he was 10 years old. The patient denies any alcohol or illicit drugs. The patient states that he drinks 6 pt of alcohol a day on the days that he drinks. He typically drinks 2-3 days a week. The patient is a full code. 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 Smoking packs per day: 10 Smoking cigarettes per day: 200.0 Years smoked: 18 Smoking pack-years: 180.00 Smoking status: Former smoker Tobacco type: cigarettes Smoking end date: 03/07/21 Alcohol intake: former Substance use: former Substance use type: does not use Other substance usage details: alcohol Last use: April 10 2021 Gender identity (if verbalized by the patient): Male Spiritual care concerns: No Exam Const: General: cooperative, no acute distress and uncomfortable Orientation/consciousness: patient oriented x3 HENMT: Head: normal to inspection Resp: Effort & Inspection: tachypneic Auscultation: clear to auscultation bilaterally Cardio: Rate: tachycardic Rhythm: regular rhythm GI: Inspection: distended GI Palp: Yes Tenderness to palpation present (GI) and Yes Guarding due to palpation present (GI) Skin: General skin exam: pallor Extrem: General: edema bilateral (2+) Procedures Paracentesis Paracentesis #1: Indication: possible spontaneous bacterial peritonitis Procedure: diagnostic paracentesis Location: RLQ Local Anesthetic: lidocaine 1% Amount of anesthesia used (mL): 5 Bedside Ultrasound Used: yes, real-time guidance Preparation: sterile prep and drape Amount of fluid obtained (mL): 20 Fluid: cloudy Size of Needle Used: 18 Patient Tolerated Procedure: well and no complications Course Vital Signs Vital signs: Vital Signs Temperature 37.0 C 04/20/21 03:35 Pulse Rate 137 H 04/20/21 03:35 Respiratory Rate 22 H 04/20/21 03:35 Blood Pressure 139/96 H 04/20/21 03:35 Pulse
[2021-04-20] MEDS: LIDOCAINE HCL 1% LOCAL INJ 20 ML VIAL INFILTRATE (03:49)
[2021-04-20] MEDS: fentaNYL CITRATE INJ (*CRX) 100 MCG/2 ML VIAL 50 MCG IV PUSH (03:50)
[2021-04-20] MEDS: PANTOPRAZOLE SODIUM IV 40 MG VIAL 80 MG IV PUSH (03:50)
[2021-04-20 04:06] LABS: Basophils Absolute Auto 0.1 K/mm3 (0.0-0.1); Eosinophils Absolute Auto 0.1 K/mm3 (0-0.3); Eosinophils Percent Auto 0.4 % (0-4.4); Hematocrit 32.8 % (42.0-52.0); Immature Granulocyte Absolute 0.34 K/mm3 (0.00-0.031); Immature Granulocyte Percent A 2.4 % (0-0.5); Lymphocytes Absolute Auto 1.87 K/mm3 (0.9-3.2); Lymphocytes Percent Auto 13.4 % (18.3-44.2); Mean Corpuscular HGB Conc 33.5 g/dl (32-36); Mean Corpuscular Hemoglobin 37.5 pg (26-34); Mean Corpuscular Volume 111.9 fl (80-100); Mean Platelet Volume 9.6 fl (7.4-10.4); Monocytes Absolute Auto 2.6 K/mm3 (0.1-0.6); Monocytes Percent Auto 18.7 % (2.6-8.5); Neutrophils Absolute Auto 8.9 K/mm3 (1.3-6.7); Neutrophils Percent Auto 64.1 % (45.5-73.1); Platelet Count Result 275 k/mm3 (150-375); Red Blood Count 2.93 M/mm3 (4.6-6.20); White Blood Count 13.9 K/mm3 (4.5-10.0)
[2021-04-20 04:15] LABS: Lactic Acid Reflex 2.8 mmol/L (0.7-2.1)
[2021-04-20 04:17] LABS: INR 1.3; Partial Thromboplastin Time 28.2 SECONDS (22.3-36.8); Prothrombin Time 16.9 Seconds (11.1-14.7)
[2021-04-20 04:20] LABS: Ammonia 21 umol/L (9-30)
[2021-04-20 04:27] LABS: Alanine Aminotransferase 46 U/L (4-50); Alkaline Phosphatase 155 U/L (38-126); Anion Gap 7 mmol/L (8-16); Aspartate Amino Transferase 126 U/L (17-59); Bilirubin,Total 5.9 mg/dL (0.2-1.3); Blood Urea Nitrogen 13 mg/dL (9-20); Calcium 8.2 mg/dL (8.4-10.2); Carbon Dioxide 23 mmol/L (22-30); Chloride 99 mmol/L (98-107); Estimated CRCL calculation 194 ml/min; Estimated Glomerular Filt Rate > 60; Glucose 96 mg/dL (75-110); Lipase 135 U/L (23-300); Potassium 5.7 mmol/L (3.4-5.0); Sodium 129 mmol/L (137-145)
[2021-04-20 04:38] LABS: Platelet Estimate Adequate (Adequate); Stomatocytes 1+ (NORMAL)
[2021-04-20 05:23] LABS: Add Urine Microscopic? YES; Appearance Urine Clear (Clear); Bilirubin Urine 1+ (Negative); Blood Urine Negative (Negative); Color Urine Amber (Yellow); Glucose Urine UA Negative (Negative); Ketones Urine Trace mg/dL (Negative); Leukocyte Esterase Ur Negative LEU/UL (Negative); Mucus Urine Heavy /lpf; Nitrate Urine Negative (Negative); Protein Urine 2+ mg/dL (Negative); RBC Urine 0-2 /hpf (0-2); Squamous Epithelial Cell Urine Rare /hpf (Few); WBC Urine 0-3 /hpf
--- NOTE | 2021-04-20 05:26 | PC.NURSE ---
Patient taken to CT.
[2021-04-20 05:28] LABS: Color Peritoneal Fluid Yellow (Colorless); Source Peritoneal Fluid Peritoneal Fluid
[2021-04-20 05:29] LABS: Appearance Peritoneal Fluid Cloudy (Clear); Lymphocytes Peritoneal Fluid 8 %; Macrophages Peritoneal Fluid 24 %; Mesothelial Cells Peritoneal Fluid 6 %; Neutrophils Peritoneal Fluid 62 % (0-25); Nucleated Cells Peritoneal Flu 249 /uL (0-500); RBC Peritoneal Fluid 406 /uL (0-100000)
[2021-04-20 05:44] LABS: Specific Grav Ur 1.035 (1.001-1.035)
--- NOTE | 2021-04-20 06:09 | ADMGEN ---
This patient, Lukas Diaz, was admitted to Medical Room 249-01. Patient/family oriented to hospital policies and general routines including ID bracelet, bed and alarms, visiting hours, pain management, procedures, bathroom and other care routines, personal items, smoking policy, room service/diet, and visiting hours. Information on how to activate the Rapid Response Team has been discussed. Patient/Family are encouraged to report perceived risks to care and to ask questions if they do not understand what they are told or what they should do.
--- NOTE | 2021-04-20 06:39 | PC.NURSE ---
pt med list placed in computer. Pt states that he was not able to afford furosemide or the aldactone. Social Service consult placed in computer.
[2021-04-20] MEDS: SODIUM CHLORIDE 0.9% IV 1,000 ML 75 ML IV CONT (06:48)
[2021-04-20 07:03] LABS: Reflex Lactic Acid Yes or No Add Lactic
[2021-04-20 07:29] LABS: Lactic Acid 2.7 mmol/L (0.7-2.1)
[2021-04-20] MEDS: PANTOPRAZOLE SODIUM IV 40 MG VIAL IV PUSH (07:52)
[2021-04-20] MEDS: MORPHINE SULFATE (*CRX) 2 MG/ML INJ IV PUSH ×3 (09:02→20:42)
--- NOTE | 2021-04-20 10:32 | PM.IMHP ---
H&P: HPI History of Present Illness Date/Time: 04/20/21 10:32 Chief Complaint: abdominal pain Narrative: patient with past medical history of cirrhosis, most likely alcoholic cirrhosis, presented with chief complaint of abdominal pain, associated with distention, get worse over the last 3 days, moderate, and constant, patient was admitted recently to our hospital and receive therapeutic paracentesis, diagnostic paracentesis was done in the emergency department yesterday, that did not reveal evidence of SBP, patient received antibiotics 1 dose in the ED, patient denies any vomiting or diarrhea, no fever. Review of Systems Review of Systems: All systems reviewed & are unremarkable except as noted in HPI and below Constitutional: Constitutional: Denies body ache(s) and Denies fatigue Eyes: Eyes: Denies blurry vision ENT: Denies dry mouth Cardiovascular: Cardiovascular: Denies chest pain with activity and Denies dyspnea Respiratory: Respiratory: Denies dyspnea Gastrointestinal: Gastrointestinal: Reports abdominal pain, Denies diarrhea, Denies nausea, Denies vomiting and Denies hematemesis Genitourinary: Genitourinary: Denies genital pain Musculoskeletal: Musculoskeletal: Denies deformity Neurologic: Denies seizure-like activity Psychiatric: Psychiatric: Denies homicidal ideation Endocrine: Endocrine: Denies fatigue PMFSH Past Medical History Medical History Acute blood loss anemia Alcohol abuse Alcoholic hepatitis Tobacco abuse Surgical History Surgical History No pertinent past surgical history Family History Family History (Updated 04/20/21 @ 06:30 by Risa Tipton RN) Mother Liver disease Cirrhosis Social History Social History Social History: The patient stated that he just quit smoking approximately 1 month ago. The patient had started smoking when he was 10 years old. The patient denies any alcohol or illicit drugs. The patient states that he drinks 6 pt of alcohol a day on the days that he drinks. He typically drinks 2-3 days a week. The patient is a full code. 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 Smoking packs per day: 10 Smoking cigarettes per day: 200.0 Years smoked: 18 Smoking pack-years: 180.00 Smoking status: Former smoker Tobacco type: cigarettes Smoking end date: 03/07/21 Alcohol intake: former Substance use: former Substance use type: does not use Other substance usage details: alcohol Last use: April 10 2021 Gender identity (if verbalized by the patient): Male Spiritual care concerns: No Meds Home Medications and Allergies Home Medications Medication Instructions Recorded Confirmed Type folic acid 1 mg PO DAILY #30 tablet 04/11/21 04/20/21 Rx pantoprazole 40 mg PO Q12HR #60 tablet 04/11/21 04/20/21 Rx furosemide 40 mg PO DAILY 04/20/21 04/20/21 History spironolactone [Aldactone] 50 mg PO QAM 04/20/21 04/20/21 History thiamine HCl (vitamin B1) 100 mg PO DAILY 04/20/21 04/20/21 History Allergies Allergy/AdvReac Type Severity Reaction Status Date / Time No Known Allergies Allergy Verified 04/20/21 03:43 Vital Signs Vital Signs - 24 hr 04/20/21 03:35 04/20/21 03:52 04/20/21 04:00 Temperature 98.6 F Pulse Rate 137 H 133 H 134 H Respiratory Rate 22 H 20 23 H Blood Pressure 139/96 H Pulse Oximetry 100 100 100 04/20/21 04:09 04/20/21 04:15 04/20/21 04:16 Temperature Pulse Rate 145 H 145 H 141 H Respiratory Rate 19 15 25 H Blood Pressure 138/94 H 122/97 H Pulse Oximetry 98 96 98 04/20/21 04:30 04/20/21 04:47 04/20/21 05:00 Temperature Pulse Rate Respiratory Rate Blood Pressure Pulse Oximetry 97 97 99 04/20/21 05:01 04/20/21 06:00 04/20/21 06:02 Temperature 98.1 F Pulse Rate 128
[2021-04-20] MEDS: SPIRONOLACTONE 50 MG TABLET PO (11:16)
[2021-04-20] MEDS: THIAMINE HCL 100 MG TABLET PO (11:16)
[2021-04-20] MEDS: FUROSEMIDE 40 MG TABLET PO (11:16)
[2021-04-20] MEDS: FOLIC ACID 1 MG TABLET PO (11:16)
[2021-04-20] MEDS: PANTOPRAZOLE 40 MG TABLET PO (20:44)
[2021-04-21] VITALS (11 sets, daily range): BP systolic 103–114; BP diastolic 54–71; PULSE 83–109; RESP 16–18; TEMP 36.5–37; O2SAT 99–100
[2021-04-21] MEDS: MORPHINE SULFATE (*CRX) 2 MG/ML INJ IV PUSH ×4 (03:32→23:08)
[2021-04-21 05:38] LABS: Basophils Absolute Auto 0.1 K/mm3 (0.0-0.1); Basophils Percent Auto 0.8 % (0.2-1.2); Eosinophils Absolute Auto 0.1 K/mm3 (0-0.3); Hematocrit 24.4 % (42.0-52.0); Hemoglobin 8.3 g/dL (14.0-18.0); Immature Granulocyte Absolute 0.22 K/mm3 (0.00-0.031); Immature Granulocyte Percent A 1.8 % (0-0.5); Lymphocytes Absolute Auto 1.65 K/mm3 (0.9-3.2); Lymphocytes Percent Auto 13.3 % (18.3-44.2); Mean Corpuscular Hemoglobin 37.2 pg (26-34); Mean Corpuscular Volume 109.4 fl (80-100); Mean Platelet Volume 9.5 fl (7.4-10.4); Monocytes Absolute Auto 1.8 K/mm3 (0.1-0.6); Monocytes Percent Auto 14.2 % (2.6-8.5); Neutrophils Absolute Auto 8.5 K/mm3 (1.3-6.7); Neutrophils Percent Auto 68.9 % (45.5-73.1); Platelet Count Result 236 k/mm3 (150-375); Red Blood Count 2.23 M/mm3 (4.6-6.20); Red Cell Distribution Width 14.7 % (11.5-14.5); White Blood Count 12.4 K/mm3 (4.5-10.0)
[2021-04-21 05:48] LABS: Alanine Aminotransferase 32 U/L (4-50); Alkaline Phosphatase 124 U/L (38-126); Anion Gap 1 mmol/L (8-16); Aspartate Amino Transferase 70 U/L (17-59); Bilirubin,Total 2.9 mg/dL (0.2-1.3); Blood Urea Nitrogen 12 mg/dL (9-20); Calcium 7.6 mg/dL (8.4-10.2); Carbon Dioxide 26 mmol/L (22-30); Chloride 100 mmol/L (98-107); Estimated CRCL calculation 159 ml/min; Estimated Glomerular Filt Rate > 60; Glucose 83 mg/dL (75-110); Lipase 127 U/L (23-300); Magnesium 1.7 mg/dL (1.6-2.3); Phosphorus 3.7 mg/dL (2.5-4.5); Potassium 4.1 mmol/L (3.4-5.0); Sodium 127 mmol/L (137-145)
[2021-04-21 05:58] LABS: INR 1.6; Prothrombin Time 19.4 Seconds (11.1-14.7)
[2021-04-21] MEDS: FOLIC ACID 1 MG TABLET PO (09:25)
[2021-04-21] MEDS: FUROSEMIDE 40 MG TABLET PO (09:25)
[2021-04-21] MEDS: PANTOPRAZOLE 40 MG TABLET PO ×2 (09:25→21:05)
[2021-04-21] MEDS: SPIRONOLACTONE 50 MG TABLET PO (09:25)
[2021-04-21] MEDS: THIAMINE HCL 100 MG TABLET PO (09:25)
--- NOTE | 2021-04-21 11:19 | PM.IMPN ---
Progress Note: A&P Assessment and Plan (1) Alcohol abuse: Code(s): F10.10 - Alcohol abuse, uncomplicated Status: Chronic Assessment and Plan: continue thiamine and folic acid, patient confirmed that he did not drink since his last admission. (2) Alcoholic hepatitis: Code(s): K70.10 - Alcoholic hepatitis without ascites Status: Chronic Assessment and Plan: consult GI (3) Ascites: Code(s): R18.8 - Other ascites Status: Acute Assessment and Plan: status post therapeutic paracentesis April 20, 2021 no signs of SBP consult GI on Lasix and spironolactone (4) Hypernatremia: Code(s): E87.0 - Hyperosmolality and hypernatremia Status: Acute Assessment and Plan: most likely related to cirrhosis consult GI Subjective Date/time seen: 04/21/21 11:19 Interval history: patient still complained of abdominal pain and abdominal distention, he had large volume paracentesis yesterday. Exam Const: General: alert; No no acute distress HENMT: Head: no hematomas Ears: hearing grossly normal bilaterally Mouth: Yes Normal oral and palatal mucosa present Eyes: General: appearance normal, both eyes and all related structures Neck: Neck: normal visual inspection Chest: Chest palpation & inspection: normal inspection of the chest Resp: Effort & Inspection: normal respiratory effort Cardio: Jugular venous distension: no JVD Rate: regular rate GI: Inspection: distended Objective Data Vital Signs Vital Signs: Vital Signs - 24 hr 04/20/21 14:00 04/20/21 14:32 04/20/21 15:53 Temperature 98.1 F 96.9 F L Pulse Rate 120 H 136 H 117 H Respiratory Rate 16 22 H Blood Pressure 126/85 122/77 Pulse Oximetry 100 100 04/20/21 16:00 04/20/21 20:00 04/20/21 21:11 Temperature 97.2 F L Pulse Rate 108 H 109 H 118 H Respiratory Rate 16 Blood Pressure 113/68 Pulse Oximetry 100 04/21/21 00:00 04/21/21 04:00 04/21/21 05:26 Temperature 98.6 F Pulse Rate 105 H 101 H 83 Respiratory Rate 16 Blood Pressure 103/54 L Pulse Oximetry 99 04/21/21 06:13 04/21/21 06:22 04/21/21 08:00 Temperature 97.8 F 97.8 F Pulse Rate 106 H 106 H 107 H Respiratory Rate 16 16 Blood Pressure 111/71 111/71 Pulse Oximetry 100 100 Intake/Output Intake/Output: Intake & Output 04/18/21 04/19/21 04/20/21 04/21/21 23:59 23:59 23:59 23:59 Intake Total 1250 700 Output Total 5900 200 Balance -4650 500 Meds/Results Medications: Active Medications Generic Name Dose Route Start Last Admin Trade Name Freq PRN Reason Stop Dose Admin Folic Acid 1 mg 04/20/21 09:00 04/21/21 09:25 Folic Acid 1 Mg Tablet PO 1 mg DAILY LIDA Administration Furosemide 40 mg 04/20/21 09:00 04/21/21 09:25 Furosemide 40 Mg Tablet PO 40 mg DAILY LIDA Administration Morphine Sulfate 2 mg 04/20/21 08:37 04/21/21 03:32 Morphine Sulfate (*Crx) 2 Mg/Ml Inj IV PUSH 2 mg Q6H PRN Administration pain Pantoprazole Sodium 40 mg 04/20/21 21:00 04/21/21 09:25 Pantoprazole 40 Mg Tablet PO 40 mg Q12HR LIDA Administration Spironolactone 50 mg 04/20/21 09:00 04/21/21 09:25 Spironolactone 50 Mg Tablet PO 50 mg QAM LIDA Administration Thiamine HCl 100 mg 04/20/21 09:00 04/21/21 09:25 Thiamine Hcl 100 Mg Tablet PO 100 mg DAILY LIDA Administration Radiology Results: ITS Impressions Abdomen/Pelvis CT 04/20/21 08:08 IMPRESSION: 1. Advanced cirrhosis with regenerating nodules, recanalized periumbilical vein and gastroesophageal varices. 2: Large amount of ascites with trace pleural effusions. Paracentesis Ultrasound 04/20/21 15:48 IMPRESSION: 1. Successful ultrasound-guided paracentesis yielding 5000 mL of clear, yellow fluid. Labs Labs: Laboratory Results - last 24 hr 04/21/21 04/21/21 04/21/21 05:13 05:13 05:13 WBC 12.4 H RBC 2.23 L Hgb 8.3 L Hct 24.4 L MCV
--- NOTE | 2021-04-21 13:03 | WPDGICN ---
Assessment and Plan Assessment and plan (1) Decompensation of cirrhosis of liver: Code(s): K72.90 - Hepatic failure, unspecified without coma; K74.60 - Unspecified cirrhosis of liver Status: Acute Assessment and Plan: he has been abstinent since recent hospitalization he is back again with worsening ascites, could not refill diuretics hepatitis panel negative (2) Ascites: Code(s): R18.8 - Other ascites Status: Acute Assessment and Plan: will order another paracentesis tomorrow hopefully will improve his discomfort- he will get albumin iv just before paracentesis (his renal function is normal) continue with 2g na diet, also diuretics (patient will use coupon to fill his meds) and given young age with decompensation will refer to hepatology program in [facility], eventually may need liver transplant evaluation if able to stay sober MELD score 16 (3) Elevated liver enzymes: Code(s): R74.8 - Abnormal levels of other serum enzymes Status: Acute (4) Alcohol abuse: Code(s): F10.10 - Alcohol abuse, uncomplicated Status: Chronic Assessment and Plan: mvi, nutrition consult, thiamine (5) Ball's esophagus with esophagitis: Code(s): K22.70 - Ball's esophagus without dysplasia; K20.90 - Esophagitis, unspecified without bleeding Status: Acute Assessment and Plan: found recently, continue with ppi bid egd in 3-4 months GI Consult Note Consult date/time: 04/21/21 13:03 Reason for consult: decompensated cirrhosis, ascites HPI: Lukas Diaz is a 35 year old male who I met during recent hospitalization 10 days ago after new diagnosis of alcoholic cirrhosis after he came in with ascites that required paracentesis and also coffee ground emesis (EGD showed ball's with esophagitis, no varices) discharged home with lasix and aldactone but could not afford medications. He has not been drinking since last hospitalization, here again with worsening abdominal pain and increase abdominal girth. He underwent paracentesis again, removed 5 Liters and given empirically iv antibiotic but no evidence of SBP. CT scan a/p reviewed, showed advanced cirrhosis with regenerating nodules, recanalized periumbilical vein and gastroesophageal varices, large amount of ascites with trace pleural effusions. labs inr 1.6, TB 2.9, alb 2, ast 70, alt 32, wbc 12k, plat 236. Abdomen is still distended and wonder if could be another paracentesis tomorrow, denies GIB. Review of Systems Constitutional: Constitutional: Reports weakness Eyes: Eyes: Denies blurry vision ENT: Reports Normal hearing present Cardiovascular: Cardiovascular: Denies chest pain Respiratory: Respiratory: Denies cough Gastrointestinal: Gastrointestinal: Reports abdominal pain Genitourinary: Genitourinary: Denies dysuria Musculoskeletal: Musculoskeletal: Denies neck pain Integumentary/Breasts: Skin/Breast: Denies dry skin Neurologic: Denies headache(s) Psychiatric: Psychiatric: Reports anxiety [facility] Past Medical History Medical History (Updated 04/21/21 @ 13:12 by Eric Oconnell MD) Acute blood loss anemia Alcohol abuse Alcoholic hepatitis Ball's esophagus with esophagitis Decompensation of cirrhosis of liver Elevated liver enzymes Tobacco abuse Surgical History Surgical History No pertinent past surgical history Family History Family History (Updated 04/20/21 @ 06:30 by Risa Tipton RN) Mother Liver disease Cirrhosis Social History Social History Social History: The patient stated that he just quit smoking approximately 1 month ago. The patient had started smoking when he was 10 years old. The patient denies any alcohol or illicit drugs. The patient states that he drinks 6 pt of alcohol a day on the days that he drinks. He typically drinks 2-3 days a we
[2021-04-22] VITALS (8 sets, daily range): BP systolic 111–117; BP diastolic 60–69; PULSE 94–118; RESP 14–18; TEMP 36.6–36.9; O2SAT 94–100
[2021-04-22] MEDS: MORPHINE SULFATE (*CRX) 2 MG/ML INJ IV PUSH ×3 (05:11→18:48)
[2021-04-22] MEDS: polyethylene glycoL 3350 17 GM POWD.PACK PO ×2 (05:12→12:48)
[2021-04-22 05:54] LABS: Basophils Absolute Auto 0.1 K/mm3 (0.0-0.1); Basophils Percent Auto 0.9 % (0.2-1.2); Eosinophils Absolute Auto 0.1 K/mm3 (0-0.3); Eosinophils Percent Auto 1.2 % (0-4.4); Hematocrit 25.6 % (42.0-52.0); Hemoglobin 8.9 g/dL (14.0-18.0); Immature Granulocyte Absolute 0.19 K/mm3 (0.00-0.031); Immature Granulocyte Percent A 1.9 % (0-0.5); Lymphocytes Absolute Auto 1.32 K/mm3 (0.9-3.2); Lymphocytes Percent Auto 13.4 % (18.3-44.2); Mean Corpuscular HGB Conc 34.8 g/dl (32-36); Mean Corpuscular Volume 109.4 fl (80-100); Mean Platelet Volume 9.9 fl (7.4-10.4); Monocytes Absolute Auto 1.4 K/mm3 (0.1-0.6); Monocytes Percent Auto 14.3 % (2.6-8.5); Neutrophils Absolute Auto 6.7 K/mm3 (1.3-6.7); Neutrophils Percent Auto 68.3 % (45.5-73.1); Platelet Count Result 241 k/mm3 (150-375); Red Blood Count 2.34 M/mm3 (4.6-6.20); Red Cell Distribution Width 14.9 % (11.5-14.5); White Blood Count 9.8 K/mm3 (4.5-10.0)
[2021-04-22 06:00] LABS: Alanine Aminotransferase 31 U/L (4-50); Albumin Level 2.1 g/dL (3.5-5.1); Alkaline Phosphatase 154 U/L (38-126); Anion Gap 2 mmol/L (8-16); Aspartate Amino Transferase 65 U/L (17-59); Bilirubin,Total 1.7 mg/dL (0.2-1.3); Blood Urea Nitrogen 9 mg/dL (9-20); Calcium 7.6 mg/dL (8.4-10.2); Carbon Dioxide 28 mmol/L (22-30); Chloride 100 mmol/L (98-107); Estimated CRCL calculation 135 ml/min; Estimated Glomerular Filt Rate > 60; Glucose 91 mg/dL (75-110); Magnesium 1.8 mg/dL (1.6-2.3); Phosphorus 4.4 mg/dL (2.5-4.5); Potassium 3.9 mmol/L (3.4-5.0); Sodium 130 mmol/L (137-145)
[2021-04-22] MEDS: ALBUMIN HUMAN 25% 25 GM/100 ML 200 ML IVPB (06:37)
[2021-04-22] MEDS: FOLIC ACID 1 MG TABLET PO (08:13)
[2021-04-22] MEDS: SPIRONOLACTONE 50 MG TABLET PO (08:13)
[2021-04-22] MEDS: PANTOPRAZOLE 40 MG TABLET PO ×2 (08:13→20:22)
[2021-04-22] MEDS: FUROSEMIDE 40 MG TABLET PO (08:14)
[2021-04-22] MEDS: THIAMINE HCL 100 MG TABLET PO (08:14)
--- NOTE | 2021-04-22 11:16 | PM.IMPN ---
Progress Note: A&P Assessment and Plan (1) Alcohol abuse: Code(s): F10.10 - Alcohol abuse, uncomplicated Status: Chronic Assessment and Plan: continue thiamine and folic acid, patient confirmed that he did not drink since his last admission. Counseling given to the patient monitor labs. (2) Alcoholic hepatitis: Code(s): K70.10 - Alcoholic hepatitis without ascites Status: Chronic Assessment and Plan: consult GI Noted. Will continue current treatment. (3) Ascites: Code(s): R18.8 - Other ascites Status: Acute Assessment and Plan: status post therapeutic paracentesis April 20, 2021 no signs of SBP consult GI on Lasix and spironolactone Monitor vital signs. Increase activity gradually. (4) Hypernatremia: Code(s): E87.0 - Hyperosmolality and hypernatremia Status: Acute Assessment and Plan: most likely related to cirrhosis consult GI Additional Plan Will continue current plan of care and treatment. Increase activity. His physical therapy to see patient. Patient agreed to go home with family tomorrow. Subjective Date/time seen: 04/22/21 11:16 Patient was seen during the morning rounds today. Patient abdominal pain is decreased. Nausea vomiting. No chest pain no shortness breath. Mood stable. Review of Systems Review of Systems: All systems reviewed & are unremarkable except as noted in HPI and below Constitutional: Constitutional: Denies body ache(s) and Denies fatigue Eyes: Eyes: Denies blurry vision ENT: Denies dry mouth Cardiovascular: Cardiovascular: Denies chest pain with activity and Denies dyspnea Respiratory: Respiratory: Denies dyspnea Gastrointestinal: Gastrointestinal: Reports abdominal pain, Denies diarrhea, Denies nausea, Denies vomiting and Denies hematemesis Genitourinary: Genitourinary: Denies genital pain Musculoskeletal: Musculoskeletal: Denies deformity Neurologic: Denies seizure-like activity Psychiatric: Psychiatric: Denies homicidal ideation Endocrine: Endocrine: Denies fatigue Exam Const: General: alert; No no acute distress HENMT: Head: no hematomas Ears: hearing grossly normal bilaterally Mouth: Yes Normal oral and palatal mucosa present Eyes: General: appearance normal, both eyes and all related structures Neck: Neck: normal visual inspection Chest: Chest palpation & inspection: normal inspection of the chest Resp: Effort & Inspection: normal respiratory effort Cardio: Jugular venous distension: no JVD Rate: regular rate GI: Inspection: distended and other ( Bowel sound positive. Nontender.) Objective Data Vital Signs Vital Signs: Vital Signs - 24 hr 04/21/21 12:00 04/21/21 14:00 04/21/21 16:00 Temperature 36.6 C Pulse Rate 109 H 103 H 103 H Respiratory Rate 18 Blood Pressure 103/64 Pulse Oximetry 100 04/21/21 20:00 04/21/21 22:00 04/22/21 00:00 Temperature 36.5 C Pulse Rate 103 H 100 94 Respiratory Rate 18 18 Blood Pressure 114/64 Pulse Oximetry 100 99 04/22/21 04:00 04/22/21 06:00 Temperature 36.6 C Pulse Rate 97 98 Respiratory Rate 14 Blood Pressure 114/69 Pulse Oximetry 99 Intake/Output Intake/Output: Intake & Output 04/19/21 04/20/21 04/21/21 04/22/21 23:59 23:59 23:59 23:59 Intake Total 1250 940 520 Output Total 5900 200 Balance -4650 740 520 Meds/Results Medications: Active Medications Generic Name Dose Route Start Last Admin Trade Name Freq PRN Reason Stop Dose Admin Folic Acid 1 mg 04/20/21 09:00 04/22/21 08:13 Folic Acid 1 Mg Tablet PO 1 mg DAILY LIDA Administration Furosemide 40 mg 04/20/21 09:00 04/22/21 08:14 Furosemide 40 Mg Tablet PO 40 mg DAILY LIDA Administration Morphine Sulfate 2 mg 04/20/21 08:37 04/22/21 05:11 Morphine Sulfate (*Crx) 2 Mg/Ml Inj IV PUSH 2 mg Q6H PRN Administration pain Pantoprazole Sodium 40 mg 04/20/21 21:00
--- NOTE | 2021-04-22 13:24 | WPDGIPROGNO ---
Progress Note: A&P Assessment and Plan (1) Decompensation of cirrhosis of liver: Code(s): K72.90 - Hepatic failure, unspecified without coma; K74.60 - Unspecified cirrhosis of liver Status: Acute Assessment and Plan: stable, continue medical care nutrition support (2) Ascites: Code(s): R18.8 - Other ascites Status: Acute Assessment and Plan: abdomen less distended, no SBP probably he can go home tomorrow with 40mg lasix and 100mg aldactone (increasing dose- stable lytes and renal function), then will refer to hepatology at [facility] as outpatient 2g na diet (3) Alcohol abuse: Code(s): F10.10 - Alcohol abuse, uncomplicated Status: Chronic Assessment and Plan: bili is coming down sober last 2 weeks nutrition support (4) Alcoholic hepatitis: Code(s): K70.10 - Alcoholic hepatitis without ascites Status: Chronic (5) Holt's esophagus with esophagitis: Code(s): K22.70 - Holt's esophagus without dysplasia; K20.90 - Esophagitis, unspecified without bleeding Status: Acute Assessment and Plan: on ppi no bleeding this hospitalization Subjective Date/time seen: 04/22/21 13:24 Interval history: he underwent another paracentesis today and removed 5 more liters, less abdominal discomfort today Review of Systems Constitutional: Constitutional: Denies headache(s) and Denies weakness Eyes: Eyes: Denies blurry vision ENT: Reports Normal hearing present, Denies headache(s) and Denies neck pain Cardiovascular: Cardiovascular: Denies chest pain and Denies dyspnea Respiratory: Respiratory: Denies dyspnea Gastrointestinal: Gastrointestinal: Reports no additional gastrointestinal complaints Genitourinary: Genitourinary: Denies dysuria Musculoskeletal: Musculoskeletal: Denies neck pain Integumentary/Breasts: Skin/Breast: Denies dry skin Neurologic: Reports Normal hearing present, Denies headache(s) and Denies weakness Psychiatric: Psychiatric: Denies anxiety Endocrine: Endocrine: Denies change in body appearance Hematologic/Lymphatic: Hematologic/Lymphatic: Denies easy bleeding Allergic/Immunologic: Allergic/Immunologic: Denies urticaria Exam Const: General: no acute distress and ill appearing chronically HENMT: General nose exam: Normal nares present Eyes: General: appearance normal, both eyes and all related structures Neck: Neck: supple Resp: Auscultation: clear to auscultation bilaterally Cardio: Rate: regular rate GI: Inspection: distended GI Palp: No Firmness to palpation present (GI) and No Guarding due to palpation present (GI) Percussion: Yes Fluid wave present (less distended today) Auscultation: normal bowel sounds Other: mild tender to palpation, no rebound Skin: General skin exam: no erythema Neuro: Speech: normal speech Motor exam (neuro): Normal motor muscle tone present throughout Extrem: General: normal to inspection Psych: Affect: normal affect Objective Data Vital Signs Vital Signs: Vital Signs - 24 hr 04/21/21 14:00 04/21/21 16:00 04/21/21 20:00 Temperature 97.8 F Pulse Rate 103 H 103 H 103 H Respiratory Rate 18 18 Blood Pressure 103/64 Pulse Oximetry 100 100 04/21/21 22:00 04/22/21 00:00 04/22/21 04:00 Temperature 97.7 F Pulse Rate 100 94 97 Respiratory Rate 18 Blood Pressure 114/64 Pulse Oximetry 99 04/22/21 06:00 Temperature 97.8 F Pulse Rate 98 Respiratory Rate 14 Blood Pressure 114/69 Pulse Oximetry 99 Intake/Output Intake/Output: Intake & Output 04/19/21 04/20/21 04/21/21 04/22/21 23:59 23:59 23:59 23:59 Intake Total 1250 940 520 Output Total 5900 200 5000 Balance -4650 740 -4480 Meds/Results Medications: Active Medications Generic Name Dose Route Start Last Admin Trade Name Freq PRN Reason Stop Dose Admin Folic Acid 1 mg 04/20/21 09:00 04/22/21 08:13 Folic Acid 1 Mg Tablet PO 1 mg DAILY LIDA Administration
[2021-04-23] VITALS (7 sets, daily range): BP systolic 110–122; BP diastolic 66–77; PULSE 95–127; RESP 16–18; TEMP 36.6–37.2; O2SAT 98–100
[2021-04-23] MEDS: MORPHINE SULFATE (*CRX) 2 MG/ML INJ IV PUSH ×3 (00:40→22:11)
[2021-04-23] MEDS: traMADol HCL (*CRX) 50 MG TABLET PO ×2 (08:07→14:06)
[2021-04-23] MEDS: THIAMINE HCL 100 MG TABLET PO (08:08)
[2021-04-23] MEDS: PANTOPRAZOLE 40 MG TABLET PO ×2 (08:08→22:12)
[2021-04-23] MEDS: SPIRONOLACTONE 50 MG TABLET 100 MG PO (08:08)
[2021-04-23] MEDS: FUROSEMIDE 40 MG TABLET PO (08:09)
[2021-04-23] MEDS: FOLIC ACID 1 MG TABLET PO (08:09)
[2021-04-23] MEDS: polyethylene glycoL 3350 17 GM POWD.PACK PO (08:09)
--- NOTE | 2021-04-23 08:16 | PM.IMPN ---
Progress Note: A&P Assessment and Plan (1) Alcohol abuse: Code(s): F10.10 - Alcohol abuse, uncomplicated Status: Chronic Assessment and Plan: continue thiamine and folic acid, patient confirmed that he did not drink since his last admission. Counseling given to the patient monitor labs. (2) Alcoholic hepatitis: Code(s): K70.10 - Alcoholic hepatitis without ascites Status: Chronic Assessment and Plan: consult GI Noted. Will continue current treatment. (3) Ascites: Code(s): R18.8 - Other ascites Status: Acute Assessment and Plan: status post therapeutic paracentesis April 20, 2021 no signs of SBP consult GI on Lasix and spironolactone Monitor vital signs. Increase activity gradually. (4) Hypernatremia: Code(s): E87.0 - Hyperosmolality and hypernatremia Status: Acute Assessment and Plan: most likely related to cirrhosis consult GI Additional Plan Will continue current plan of care and treatment. Increase activity. His physical therapy to see patient. Patient agreed to go home with family tomorrow. 04/23/2021: Will continue current plan of care and treatment. Will increase activity. Patient family is coming from our out of town to take care of him at home today. Will discharge patient in the morning. Subjective Date/time seen: 04/23/21 08:16 Patient was seen during the morning rounds today. Complaint of having generalized weakness. No shortness of breath or chest pain. Abdominal pain is better. No nausea or vomiting. Mood stable. Interval history: Review of Systems Review of Systems: All systems reviewed & are unremarkable except as noted in HPI and below Constitutional: Constitutional: Denies body ache(s) and Denies fatigue Eyes: Eyes: Denies blurry vision ENT: Denies dry mouth Cardiovascular: Cardiovascular: Denies chest pain with activity and Denies dyspnea Respiratory: Respiratory: Denies dyspnea Gastrointestinal: Gastrointestinal: Reports abdominal pain, Denies diarrhea, Denies nausea, Denies vomiting and Denies hematemesis Genitourinary: Genitourinary: Denies genital pain Musculoskeletal: Musculoskeletal: Denies deformity Neurologic: Denies seizure-like activity Psychiatric: Psychiatric: Denies homicidal ideation Endocrine: Endocrine: Denies fatigue Exam Const: General: alert; No no acute distress HENMT: Head: no hematomas Ears: hearing grossly normal bilaterally Mouth: Yes Normal oral and palatal mucosa present Eyes: General: appearance normal, both eyes and all related structures Neck: Neck: normal visual inspection Chest: Chest palpation & inspection: normal inspection of the chest Resp: Effort & Inspection: normal respiratory effort Cardio: Jugular venous distension: no JVD Rate: regular rate GI: Inspection: distended and other ( Bowel sound positive. Nontender.) Objective Data Vital Signs Vital Signs: Vital Signs - 24 hr 04/22/21 12:00 04/22/21 14:30 04/22/21 16:00 Temperature 36.9 C Pulse Rate 102 H 107 H 118 H Respiratory Rate 16 Blood Pressure 111/60 Pulse Oximetry 100 04/22/21 20:00 04/22/21 21:28 04/23/21 00:00 Temperature 36.8 C Pulse Rate 100 100 107 H Respiratory Rate 18 18 Blood Pressure 117/66 Pulse Oximetry 94 94 04/23/21 04:08 04/23/21 05:25 Temperature 36.6 C Pulse Rate 101 H 95 Respiratory Rate 18 Blood Pressure 110/66 Pulse Oximetry 100 Intake/Output Intake/Output: Intake & Output 04/20/21 04/21/21 04/22/21 04/23/21 23:59 23:59 23:59 23:59 Intake Total 6816 453 4973 390 Output Total 5900 200 6000 Balance -4650 740 -3580 390 Meds/Results Medications: Active Medications Generic Name Dose Route Start Last Admin Trade Name Freq PRN Reason Stop Dose Admin Folic Acid 1 mg 04/20/21 09:00 04/23/21 08:09 Folic Acid 1 Mg Tablet PO 1 mg DAILY LIDA Administration Furosemide 40 mg 04/20/21 0
[2021-04-23] MEDS: LACTULOSE 20 GM/30 ML UDC PO ×2 (09:48→14:55)
--- NOTE | 2021-04-23 14:19 | WPDGIPROGNO ---
Progress Note: A&P Assessment and Plan (1) Decompensation of cirrhosis of liver: Code(s): K72.90 - Hepatic failure, unspecified without coma; K74.60 - Unspecified cirrhosis of liver Status: Acute Assessment and Plan: stable, continue medical care nutrition support (2) Ascites: Code(s): R18.8 - Other ascites Status: Acute Assessment and Plan: abdomen less distended, no SBP had total of 10 L removed during this hospitalization (received iv albumin) and continue with aldactone 100mg and lasix 40mg (will get labs in am) and then probably can go home. will refer to hepatology at [facility] as outpatient given young age and decompensated cirrhosis 2g na diet (3) Alcohol abuse: Code(s): F10.10 - Alcohol abuse, uncomplicated Status: Chronic Assessment and Plan: bili is coming down- repeat labs in am sober last 2 weeks nutrition support (4) Alcoholic hepatitis: Code(s): K70.10 - Alcoholic hepatitis without ascites Status: Chronic (5) Holt's esophagus with esophagitis: Code(s): K22.70 - Holt's esophagus without dysplasia; K20.90 - Esophagitis, unspecified without bleeding Status: Acute Assessment and Plan: on ppi no bleeding this hospitalization (6) Constipation: Code(s): K59.00 - Constipation, unspecified Status: Acute Assessment and Plan: will give one extra dose of lactulose Subjective Date/time seen: 04/23/21 14:19 Interval history: still no BM since admission and he just received miralax and also lactulose earlier. Otherwise no new events, less abdominal distension. Review of Systems Review of Systems: All systems reviewed & are unremarkable except as noted in HPI and below Exam Const: General: no acute distress and ill appearing chronically HENMT: General nose exam: Normal nares present Eyes: General: appearance normal, both eyes and all related structures Neck: Neck: supple Resp: Auscultation: clear to auscultation bilaterally Cardio: Rate: regular rate GI: Inspection: distended GI Palp: No Firmness to palpation present (GI) and No Guarding due to palpation present (GI) Percussion: Yes Fluid wave present (less distended today) Auscultation: normal bowel sounds Other: mild tender to palpation, no rebound Skin: General skin exam: no erythema Neuro: Speech: normal speech Motor exam (neuro): Normal motor muscle tone present throughout Extrem: General: normal to inspection Psych: Affect: normal affect Objective Data Vital Signs Vital Signs: Vital Signs - 24 hr 04/22/21 14:30 04/22/21 16:00 04/22/21 20:00 Temperature 98.4 F Pulse Rate 107 H 118 H 100 Respiratory Rate 16 18 Blood Pressure 111/60 Pulse Oximetry 100 94 04/22/21 21:28 04/23/21 00:00 04/23/21 04:08 Temperature 98.3 F Pulse Rate 100 107 H 101 H Respiratory Rate 18 Blood Pressure 117/66 Pulse Oximetry 94 04/23/21 05:25 04/23/21 08:00 04/23/21 12:00 Temperature 98 F Pulse Rate 95 127 H 104 H Respiratory Rate 18 Blood Pressure 110/66 Pulse Oximetry 100 Intake/Output Intake/Output: Intake & Output 04/20/21 04/21/21 04/22/21 04/23/21 23:59 23:59 23:59 23:59 Intake Total 0338 700 2493 390 Output Total 5900 200 6000 Balance -4650 740 -3580 390 Meds/Results Medications: Active Medications Generic Name Dose Route Start Last Admin Trade Name Freq PRN Reason Stop Dose Admin Folic Acid 1 mg 04/20/21 09:00 04/23/21 08:09 Folic Acid 1 Mg Tablet PO 1 mg DAILY LIDA Administration Furosemide 40 mg 04/20/21 09:00 04/23/21 08:09 Furosemide 40 Mg Tablet PO 40 mg DAILY LIDA Administration Lactulose 20 gm 04/23/21 07:54 04/23/21 09:48 Lactulose 20 Gm/30 Ml Udc PO 20 gm QAM PRN Administration Constipation Morphine Sulfate 2 mg 04/20/21 08:37 04/23/21 06:36 Morphine Sulfate (*Crx) 2 Mg/Ml Inj IV PUSH 2 mg Q6H PRN Administration pain
[2021-04-23 20:45] LABS: Glucose Peritoneal Fluid 103 mg/dL; LDH Peritoneal Fluid 41 U/L (<63)
[2021-04-24] VITALS (7 sets, daily range): BP systolic 104–124; BP diastolic 67–83; PULSE 85–115; RESP 16–20; TEMP 36.3–36.5; O2SAT 93–100
[2021-04-24] MEDS: traMADol HCL (*CRX) 50 MG TABLET PO ×3 (00:31→16:27)
[2021-04-24] MEDS: MORPHINE SULFATE (*CRX) 2 MG/ML INJ IV PUSH ×3 (04:04→19:46)
[2021-04-24 05:54] LABS: Potassium 4.1 mmol/L (3.4-5.0)
[2021-04-24 06:08] LABS: Alanine Aminotransferase 27 U/L (4-50); Albumin Level 2.6 g/dL (3.5-5.1); Alkaline Phosphatase 147 U/L (38-126); Anion Gap 5 mmol/L (8-16); Aspartate Amino Transferase 54 U/L (17-59); Bilirubin,Total 1.4 mg/dL (0.2-1.3); Blood Urea Nitrogen 6 mg/dL (9-20); Carbon Dioxide 24 mmol/L (22-30); Chloride 101 mmol/L (98-107); Estimated CRCL calculation 159 ml/min; Estimated Glomerular Filt Rate > 60; Glucose 85 mg/dL (75-110); Sodium 130 mmol/L (137-145)
[2021-04-24] MEDS: PANTOPRAZOLE 40 MG TABLET PO ×2 (08:10→22:07)
[2021-04-24] MEDS: SPIRONOLACTONE 50 MG TABLET 100 MG PO (08:10)
[2021-04-24] MEDS: FOLIC ACID 1 MG TABLET PO (08:10)
[2021-04-24] MEDS: THIAMINE HCL 100 MG TABLET PO (08:10)
[2021-04-24] MEDS: FUROSEMIDE 40 MG TABLET PO (08:10)
[2021-04-24 09:19] LABS: Hematocrit 27.1 % (42.0-52.0); Hemoglobin 9.1 g/dL (14.0-18.0); Mean Corpuscular HGB Conc 33.6 g/dl (32-36); Mean Corpuscular Hemoglobin 37.9 pg (26-34); Mean Corpuscular Volume 112.9 fl (80-100); Mean Platelet Volume 12.8 fl (7.4-10.4); Platelet Count Result 248 k/mm3 (150-375); Red Cell Distribution Width 15.6 % (11.5-14.5); White Blood Count 10.1 K/mm3 (4.5-10.0)
--- NOTE | 2021-04-24 11:17 | WPDANESEPPF ---
Anes - Initial Pre Proc Eval Procedure: Operation Date: 04/24/21 12:00 Proposed Procedures p Esophagogastroduodenoscopy - Eric Oconnell MD Date/Time: 04/24/21 11:17 Surgeon: Eric He MD Pre Op Diagnosis: SBP Patient Data Age: 35 Gender: M Height: 1.7 m Weight: 76 kg Last Vital Signs Temp 97.3 F L 04/24/21 06:00 Pulse 85 04/24/21 06:00 Resp 16 04/24/21 06:00 BP 118/76 04/24/21 06:00 Pulse Ox 100 04/24/21 06:00 Allergies Allergy/AdvReac Type Severity Reaction Status Date / Time No Known Allergies Allergy Verified 04/20/21 03:43 Home Medications Medication Instructions Recorded Confirmed Type folic acid 1 mg PO DAILY #30 tablet 04/11/21 04/20/21 Rx pantoprazole 40 mg PO Q12HR #60 tablet 04/11/21 04/20/21 Rx furosemide 40 mg PO DAILY 04/20/21 04/20/21 History spironolactone [Aldactone] 50 mg PO QAM 04/20/21 04/20/21 History thiamine HCl (vitamin B1) 100 mg PO DAILY 04/20/21 04/20/21 History Laboratory Tests 04/20/21 04/24/21 04/24/21 04:19 05:20 05:23 WBC 10.1 K/mm3 H K/mm3 (4.5-10.0) RBC 2.40 M/mm3 L M/mm3 (4.6-6.20) Hgb 9.1 g/dL L g/dL (14.0-18.0) Hct 27.1 % L % (42.0-52.0) MCV 112.9 fl H fl (80-100) MCH 37.9 pg H pg (26-34) MCHC 33.6 g/dl g/dl (32-36) RDW 15.6 % H % (11.5-14.5) Plt Count 248 k/mm3 k/mm3 (150-375) MPV 12.8 fl H fl (7.4-10.4) Sodium 130 mmol/L L mmol/L (137-145) Potassium 4.1 mmol/L mmol/L (3.4-5.0) Chloride 101 mmol/L mmol/L (98-107) Carbon Dioxide 24 mmol/L mmol/L (22-30) Anion Gap 5 mmol/L L mmol/L (8-16) BUN 6 mg/dL L mg/dL (9-20) Creatinine 0.50 mg/dL L mg/dL (0.7-1.3) Estim Creat Clear Calc 159 ml/min ml/min Estimated GFR > 60 (59 - ) Glucose 85 mg/dL mg/dL (75-110) Calcium 8.0 mg/dL L mg/dL (8.4-10.2) Total Bilirubin 1.4 mg/dL H mg/dL (0.2-1.3) AST 54 U/L U/L (17-59) ALT 27 U/L U/L (4-50) Alkaline Phosphatase 147 U/L H U/L (38-126) Total Protein 6.0 g/dL L g/dL (6.3-8.2) Albumin 2.6 g/dL L g/dL (3.5-5.1) Peritoneal LDH 41 U/L U/L (<63) Peritoneal Glucose 103 mg/dL mg/dL Patient hx anesthesia problems: none Family hx anesthesia problems: none PMFSH Past Medical History Medical History (Updated 04/23/21 @ 14:24 by Eric Oconnell MD) Acute blood loss anemia Alcohol abuse Alcoholic hepatitis Holt's esophagus with esophagitis Constipation Decompensation of cirrhosis of liver Elevated liver enzymes Tobacco abuse Surgical History Surgical History No pertinent past surgical history Family History Family History (Updated 04/20/21 @ 06:30 by Risa Tipton RN) Mother Liver disease Cirrhosis Social History Social History Social History: The patient stated that he just quit smoking approximately 1 month ago. The patient had started smoking when he was 10 years old. The patient denies any alcohol or illicit drugs. The patient states that he drinks 6 pt of alcohol a day on the days that he drinks. He typically drinks 2-3 days a week. The patient is a full code. 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 Smoking packs per day: 10 Smoking cigarettes per day: 200.0 Years smoked: 18 Smoking pack-years: 180.00 Smoking status: Former smoker Tobacco type: cigarettes Smoking end date: 03/07/21 Alcohol intake: former Substance use: former Substance use type: does not use Other substance usage details: alcohol Last use: April 10 2021 Gender identity (if verbalized by the patient): Male Spiritual care co
[2021-04-24] MEDS: LACTATED RINGERS 1,000 ML 150 ML IV CONT (11:24)
--- NOTE | 2021-04-24 12:44 | PC.NURSE ---
Patient returned from GI lab per stretcher.
[2021-04-24] MEDS: ALBUMIN HUMAN 25% 25 GM/100 ML 200 ML IVPB (13:58)
--- NOTE | 2021-04-24 16:37 | PM.IMPN ---
Progress Note: A&P Assessment and Plan (1) Alcohol abuse: Code(s): F10.10 - Alcohol abuse, uncomplicated Status: Chronic Assessment and Plan: continue thiamine and folic acid, patient confirmed that he did not drink since his last admission. Counseling given to the patient monitor labs. (2) Alcoholic hepatitis: Code(s): K70.10 - Alcoholic hepatitis without ascites Status: Chronic Assessment and Plan: consult GI Noted. Will continue current treatment. (3) Ascites: Code(s): R18.8 - Other ascites Status: Acute Assessment and Plan: status post therapeutic paracentesis April 20, 2021 no signs of SBP consult GI on Lasix and spironolactone Monitor vital signs. Increase activity gradually. patient had paracentesis again today (4) Hypernatremia: Code(s): E87.0 - Hyperosmolality and hypernatremia Status: Acute Assessment and Plan: most likely related to cirrhosis consult GI Additional Plan Will continue current plan of care and treatment. Increase activity. His physical therapy to see patient. Patient agreed to go home with family tomorrow. 04/23/2021: Will continue current plan of care and treatment. Will increase activity. Patient family is coming from our out of town to take care of him at home today. Will discharge patient in the morning. Subjective Date/time seen: 04/24/21 16:37 family does so Interval history: patient is status post paracentesis Review of Systems Review of Systems: All systems reviewed & are unremarkable except as noted in HPI and below Constitutional: Constitutional: Denies body ache(s) and Denies fatigue Eyes: Eyes: Denies blurry vision ENT: Denies dry mouth Cardiovascular: Cardiovascular: Denies chest pain with activity and Denies dyspnea Respiratory: Respiratory: Denies dyspnea Gastrointestinal: Gastrointestinal: Reports abdominal pain, Denies diarrhea, Denies nausea, Denies vomiting and Denies hematemesis Genitourinary: Genitourinary: Denies genital pain Musculoskeletal: Musculoskeletal: Denies deformity Neurologic: Denies seizure-like activity Psychiatric: Psychiatric: Denies homicidal ideation Endocrine: Endocrine: Denies fatigue Exam Narrative: Exam Narrative: sitting Const: General: well developed, alert, awake, Physically active and ill appearing chronically; No no acute distress HENMT: Head: no hematomas Ears: hearing grossly normal bilaterally Mouth: Yes Normal oral and palatal mucosa present Eyes: General: appearance normal, both eyes and all related structures Neck: Neck: normal visual inspection Chest: Chest palpation & inspection: normal inspection of the chest Resp: Effort & Inspection: normal respiratory effort Cardio: Jugular venous distension: no JVD Rate: regular rate GI: Inspection: distended and other ( Bowel sound positive. Nontender.) Objective Data Vital Signs Vital Signs: Vital Signs - 24 hr 04/23/21 22:00 04/24/21 06:00 04/24/21 11:20 Temperature 98.0 F 97.3 F L 97.3 F L Pulse Rate 99 85 95 Respiratory Rate 16 16 16 Blood Pressure 122/77 118/76 124/83 Pulse Oximetry 99 100 93 04/24/21 12:04 04/24/21 12:14 04/24/21 12:24 Temperature Pulse Rate 92 92 90 Respiratory Rate 16 16 16 Blood Pressure 104/76 105/71 111/79 Pulse Oximetry 100 100 100 04/24/21 14:00 Temperature 97.7 F Pulse Rate 115 H Respiratory Rate 20 Blood Pressure 117/72 Pulse Oximetry 100 Intake/Output Intake/Output: Intake & Output 04/21/21 04/22/21 04/23/21 04/24/21 23:59 23:59 23:59 23:59 Intake Total 940 2420 1590 250 Output Total 200 6000 1000 3000 Balance 740 -0763 867 -6424 Meds/Results Medications: Active Medications Generic Name Dose Route Start Last Admin Trade Name Freq PRN Reason Stop Dose Admin Folic Acid 1 mg 04/20/21 09:00 04/24/21 08:10 Folic Acid 1 Mg Tablet PO 1 mg DAILY LIDA Administration Furosemid
[2021-04-25] MEDS: traMADol HCL (*CRX) 50 MG TABLET PO ×3 (00:12→17:00)
[2021-04-25] MEDS: MORPHINE SULFATE (*CRX) 2 MG/ML INJ IV PUSH (02:45)
[2021-04-25 05:18] VITALS: BP 115/77; PULSE 90; RESP 20; TEMP 36.3; O2SAT 100
--- NOTE | 2021-04-25 08:04 | WPDANESPN ---
Anes - Prog Note Post-Op Date/Time: 04/25/21 08:04 Cardiovascular status: normal Respiratory status: normal Airway patency: baseline Mental status: baseline Post-Op hydration status: normal Vital Signs: Last Vital Signs Temp 97.3 F L 04/25/21 05:18 Pulse 90 04/25/21 05:18 Resp 20 04/25/21 05:18 BP 115/77 04/25/21 05:18 Pulse Ox 100 04/25/21 05:18 Pain Score (VAS): 0 I/O: Intake & Output 04/24/21 04/25/21 04/25/21 23:59 07:59 15:59 Intake Total 440 390 Output Total 200 Balance 440 190 Laboratory Tests 04/24/21 05:20 04/24/21 05:23 04/24/21 05:20 WBC 10.1 H RBC 2.40 L Hgb 9.1 L Hct 27.1 L MCV 112.9 H MCH 37.9 H MCHC 33.6 RDW 15.6 H Plt Count 248 MPV 12.8 H Microbiology 04/20/21 04:19 Ascites Fluid Anaerobic Culture - Preliminary 04/20/21 04:19 Ascites Fluid Aerobic Culture - Final Post-procedural complaints: none Patient Feedback: Patient satisfied with anesthetic care.
--- NOTE | 2021-04-25 08:08 | PM.DS ---
DS: Admitting Diagnosis Admitting Diagnosis Admitting Diagnosis: (1) Alcohol abuse: Code(s): F10.10 - Alcohol abuse, uncomplicated Status: Chronic Assessment and Plan: continue thiamine and folic acid, patient confirmed that he did not drink since his last admission. (2) Alcoholic hepatitis: Code(s): K70.10 - Alcoholic hepatitis without ascites Status: Chronic Assessment and Plan: consult GI (3) Ascites: Qualifiers: Ascites type: due to alcoholic hepatitis Qualified Code(s): K70.11 - Alcoholic hepatitis with ascites Code(s): R18.8 - Other ascites Status: Acute DS: Discharge Diagnosis Discharge Diagnosis (1) Alcohol abuse: Code(s): F10.10 - Alcohol abuse, uncomplicated Status: Chronic Assessment and Plan: continue thiamine and folic acid, patient confirmed that he did not drink since his last admission. Counseling given to the patient monitor labs. (2) Alcoholic hepatitis: Code(s): K70.10 - Alcoholic hepatitis without ascites Status: Chronic Assessment and Plan: consult GI Noted. Will continue current treatment. (3) Ascites: Code(s): R18.8 - Other ascites Status: Acute Assessment and Plan: status post therapeutic paracentesis April 20, 2021 no signs of SBP consult GI on Lasix and spironolactone Monitor vital signs. Increase activity gradually. patient had paracentesis again today (4) Hypernatremia: Code(s): E87.0 - Hyperosmolality and hypernatremia Status: Acute Assessment and Plan: most likely related to cirrhosis consult GI DS: Summary Hospital Course Hospital Course: patient with past medical history of cirrhosis, most likely alcoholic cirrhosis, presented with chief complaint of abdominal pain, associated with distention, get worse over the last 3 days, moderate, and constant, patient was admitted recently to our hospital and receive therapeutic paracentesis, diagnostic paracentesis was done in the emergency department yesterday, that did not reveal evidence of SBP, patient received antibiotics 1 dose in the ED, patient denies any vomiting or diarrhea, no fever. PATIENT WAS ADMITTED TO GENERAL MEDICAL FLOOR. INITIALLY WAS TREATED SBP UNDERWENT PARACENTESIS UNDERWENT ENDOSCOPY WHICH REVEALED BRITT'S ESOPHAGUS WITHOUT DYSPLASIA, ESOPHAGITIS AND GASTRITIS. PATIENT WITH ABDOMINAL PAIN THAT WAS FAIRLY WELL CONTROLLED WITH PAIN MEDICATION. HE WILL FOLLOW-UP IN OUTPATIENT SETTING WITH [facility] [facility] PROCEDURES DONE: ENDOSCOPE, PARACENTESIS CONSULTS OBTAINED: GI, INTERVENTIONAL RADIOLOGY. Status at Discharge Cognitive/behavioral status at discharge: AAOX3 Functional status at discharge: independent ambulation Overall status at discharge: patient is not back to baseline Time Spent with Patient Time attestation: Total time spent providing and/or coordinating discharge services: Exam Narrative: Exam Narrative: sitting Const: General: well developed, alert, awake, Physically active and ill appearing chronically; No no acute distress HENMT: Head: no hematomas Ears: hearing grossly normal bilaterally Mouth: Yes Normal oral and palatal mucosa present Eyes: General: appearance normal, both eyes and all related structures Neck: Neck: normal visual inspection Chest: Chest palpation & inspection: normal inspection of the chest Resp: Effort & Inspection: normal respiratory effort Cardio: Jugular venous distension: no JVD Rate: regular rate GI: Inspection: distended and other ( Bowel sound positive. Nontender.) DS: Data Data Completed and Pending Completed studies during hospitalization: EXAMINATION: CT abdomen pelvis w con DATE: 04/20/2021 05:36 INDICATION: Lower abdominal pain. History of alcoholic hepatitis. Abdominal swelling. TECHNIQUE: Computed tomography (CT) of the abdomen and pelvis was performed without intravenous con
[2021-04-25 09:06] VITALS: RESP 20; O2SAT 100
[2021-04-25] MEDS: THIAMINE HCL 100 MG TABLET PO (09:06)
[2021-04-25] MEDS: FUROSEMIDE 40 MG TABLET PO (09:06)
[2021-04-25] MEDS: FOLIC ACID 1 MG TABLET PO (09:06)
[2021-04-25] MEDS: PANTOPRAZOLE 40 MG TABLET PO ×2 (09:06→20:04)
[2021-04-25] MEDS: SPIRONOLACTONE 50 MG TABLET 100 MG PO (09:06)
[2021-04-25 12:01] VITALS: O2SAT 98
--- NOTE | 2021-04-25 13:24 | PM.IMPN ---
Progress Note: A&P Assessment and Plan (1) Alcohol abuse: Code(s): F10.10 - Alcohol abuse, uncomplicated Status: Chronic Assessment and Plan: continue thiamine and folic acid, patient confirmed that he did not drink since his last admission. Counseling given to the patient monitor labs. (2) Alcoholic hepatitis: Code(s): K70.10 - Alcoholic hepatitis without ascites Status: Chronic Assessment and Plan: consult GI Noted. Will continue current treatment. (3) Ascites: Code(s): R18.8 - Other ascites Status: Acute Assessment and Plan: status post therapeutic paracentesis April 20, 2021 no signs of SBP consult GI on Lasix and spironolactone Monitor vital signs. Increase activity gradually. patient had paracentesis again today (4) Hypernatremia: Code(s): E87.0 - Hyperosmolality and hypernatremia Status: Acute Assessment and Plan: most likely related to cirrhosis consult GI Additional Plan Will continue current plan of care and treatment. Increase activity. His physical therapy to see patient. Patient agreed to go home with family tomorrow. 04/23/2021: Will continue current plan of care and treatment. Will increase activity. Patient family is coming from our out of town to take care of him at home today. Will discharge patient in the morning. Subjective Date/time seen: 04/25/21 13:24 I feel better but still having abdominal pain Interval history: patient is status post paracentesis Review of Systems Review of Systems: All systems reviewed & are unremarkable except as noted in HPI and below Constitutional: Constitutional: Denies body ache(s) and Denies fatigue Eyes: Eyes: Denies blurry vision ENT: Denies dry mouth Cardiovascular: Cardiovascular: Denies chest pain with activity and Denies dyspnea Respiratory: Respiratory: Denies dyspnea Gastrointestinal: Gastrointestinal: Reports abdominal pain, Denies diarrhea, Denies nausea, Denies vomiting and Denies hematemesis Genitourinary: Genitourinary: Denies genital pain Musculoskeletal: Musculoskeletal: Denies deformity Neurologic: Denies seizure-like activity Psychiatric: Psychiatric: Denies homicidal ideation Endocrine: Endocrine: Denies fatigue Exam Narrative: Exam Narrative: sitting Const: General: well developed, alert, awake, Physically active and ill appearing chronically; No no acute distress HENMT: Head: no hematomas Ears: hearing grossly normal bilaterally Mouth: Yes Normal oral and palatal mucosa present Eyes: General: appearance normal, both eyes and all related structures Neck: Neck: normal visual inspection Chest: Chest palpation & inspection: normal inspection of the chest Resp: Effort & Inspection: normal respiratory effort Cardio: Jugular venous distension: no JVD Rate: regular rate GI: Inspection: distended and other ( Bowel sound positive. Nontender.) Skin: General skin exam: pallor Neuro: General: patient oriented x3 and CN's II-XI intact bilaterally Cranial nerves: Yes CN's II-XII intact bilaterally and Yes Equal, round and reactive pupils present Cognition (Neuro): normal cognition Speech: normal speech Gait exam (Neuro): Normal gait present Motor exam (neuro): 5/5 motor strength present throughout Extrem: General: normal to inspection and no pedal edema Objective Data Vital Signs Vital Signs: Vital Signs - 24 hr 04/24/21 14:00 04/24/21 20:55 04/25/21 05:18 Temperature 97.7 F 97.7 F 97.3 F L Pulse Rate 115 H 93 90 Respiratory Rate 20 18 20 Blood Pressure 117/72 110/67 115/77 Pulse Oximetry 100 99 100 04/25/21 09:06 04/25/21 12:01 Temperature Pulse Rate Respiratory Rate 20 Blood Pressure Pulse Oximetry 100 98 Intake/Output Intake/Output: Intake & Output 04/22/21 04/23/21 04/24/21 04/25/21 23:59 23:59 23:59 23:59 Intake Total 2420 1590 690 990 Output Total 6000 1000 3000 200 [place]per
--- NOTE | 2021-04-25 15:01 | WPDGIPROGNO ---
Progress Note: A&P Assessment and Plan (1) Decompensation of cirrhosis of liver: Code(s): K72.90 - Hepatic failure, unspecified without coma; K74.60 - Unspecified cirrhosis of liver Status: Acute Assessment and Plan: stable, continue medical care nutrition support (2) Holt's esophagus with esophagitis: Code(s): K22.70 - Holt's esophagus without dysplasia; K20.90 - Esophagitis, unspecified without bleeding Status: Acute Assessment and Plan: on ppi twice daily EGD yesterday after had episode of melena (denies any more), found grade III erosive esophagitis with Holt's, no varices, no active bleeding (3) Ascites: Code(s): R18.8 - Other ascites Status: Acute Assessment and Plan: abdomen less distended, no SBP had 3 more liters removed, continue with aldactone 100mg and lasix 40mg he is going home tomorrow (family from out of town is coming to get him) and he says that already has made an appointment to see liver specialist at [facility] 2g na diet (4) Alcohol abuse: Code(s): F10.10 - Alcohol abuse, uncomplicated Status: Chronic Assessment and Plan: bili is down sober for almost 2 weeks nutrition support (5) Alcoholic hepatitis: Code(s): K70.10 - Alcoholic hepatitis without ascites Status: Chronic (6) Constipation: Code(s): K59.00 - Constipation, unspecified Status: Acute Assessment and Plan: laxatives prn Subjective Date/time seen: 04/25/21 15:01 Interval history: egd yesterday showed grade III erosive esophagitis without bleeding, also had 3 more liters of ascitic fluid removed. He is doing well today. Review of Systems Review of Systems: All systems reviewed & are unremarkable except as noted in HPI and below Exam Const: General: no acute distress and ill appearing chronically HENMT: General nose exam: Normal nares present Eyes: General: appearance normal, both eyes and all related structures Neck: Neck: supple Resp: Auscultation: clear to auscultation bilaterally Cardio: Rate: regular rate GI: Inspection: distended GI Palp: No Firmness to palpation present (GI) and No Guarding due to palpation present (GI) Percussion: Yes Fluid wave present (less distended today) Auscultation: normal bowel sounds Other: mild tender to palpation, no rebound Skin: General skin exam: no erythema Neuro: Speech: normal speech Motor exam (neuro): Normal motor muscle tone present throughout Extrem: General: normal to inspection Psych: Affect: normal affect Objective Data Vital Signs Vital Signs: Vital Signs - 24 hr 04/24/21 20:55 04/25/21 05:18 04/25/21 09:06 Temperature 97.7 F 97.3 F L Pulse Rate 93 90 Respiratory Rate 18 20 20 Blood Pressure 110/67 115/77 Pulse Oximetry 99 100 100 04/25/21 12:01 Temperature Pulse Rate Respiratory Rate Blood Pressure Pulse Oximetry 98 Intake/Output Intake/Output: Intake & Output 04/22/21 04/23/21 04/24/21 04/25/21 23:59 23:59 23:59 23:59 Intake Total 2420 1590 690 990 Output Total 6000 1000 3000 200 Balance -3580 590 -2310 790 Meds/Results Medications: Active Medications Generic Name Dose Route Start Last Admin Trade Name Lena PRN Reason Stop Dose Admin Folic Acid 1 mg 04/20/21 09:00 04/25/21 09:06 Folic Acid 1 Mg Tablet PO 1 mg DAILY LIDA Administration Furosemide 40 mg 04/20/21 09:00 04/25/21 09:06 Furosemide 40 Mg Tablet PO 40 mg DAILY LIDA Administration Pantoprazole Sodium 40 mg 04/20/21 21:00 04/25/21 09:06 Pantoprazole 40 Mg Tablet PO 40 mg Q12HR LIDA Administration Polyethylene Glycol 17 gm 04/21/21 20:20 04/23/21 08:09 Polyethylene Glycol 3350 17 Gm Powd.Pack PO 17 gm QAM PRN Administration Constipation Spironolactone 100 mg 04/23/21 09:00 04/25/21 09:06 Spironolactone 50 Mg Tablet PO 100 mg QAM LIDA Administration Thiamine HCl 100 mg 04/20/21 09:00 04/25
[2021-04-25 20:58] VITALS: BP 124/72; PULSE 97; RESP 16; TEMP 36.8; O2SAT 100
[2021-04-26] MEDS: traMADol HCL (*CRX) 50 MG TABLET PO ×2 (00:07→08:41)
[2021-04-26 05:36] VITALS: BP 117/52; PULSE 81; RESP 18; TEMP 36.7; O2SAT 98
[2021-04-26] MEDS: FUROSEMIDE 40 MG TABLET PO (08:35)
[2021-04-26] MEDS: FOLIC ACID 1 MG TABLET PO (08:35)
[2021-04-26] MEDS: THIAMINE HCL 100 MG TABLET PO (08:35)
[2021-04-26] MEDS: SPIRONOLACTONE 50 MG TABLET 100 MG PO (08:35)
[2021-04-26] MEDS: PANTOPRAZOLE 40 MG TABLET PO (08:35)
[2021-04-26 09:00] VITALS: RESP 18; O2SAT 98
== END 2021-04-26 09:00 | disposition home or self-care (01) | DRG 280 ==
LOC: ANHED 04:03 → ANH2MED 07:11
PROVIDERS: Emergency Medicine; Internal Medicine Gastroenterology; Admitting Provider Internal Medicine; Emergency Provider Emergency Medicine; Visit Provider Internal Medicine
PROC: 0DJ08ZZ Inspection of Upper Intestinal Tract, Via Natural or Artificial Opening Endoscopic (ICD-10-PCS; CPT 43235; principal; 2021-04-24 12:00)
DX: K70.11 Alcoholic hepatitis with ascites (principal); E87.1 Hypo-osmolality and hyponatremia; F10.10 Alcohol abuse, uncomplicated; F17.210 Nicotine dependence, cigarettes, uncomplicated; K22.70 Barrett's esophagus without dysplasia; K59.00 Constipation, unspecified; K29.70 Gastritis, unspecified, without bleeding; K21.00 Gastro-esophageal reflux disease with esophagitis, without bleeding
CPT/HCPCS: 36415; 49083; 74177; 80053; 81001; 82140; 82945; 83605; 83615; 83690; 83735; 84100; 85025; 85027; 85610; 85730; 86850; 86900; 86901; 87040; 87070; 87075; 87205; 88108; 88305; 89051; 96361; 96365; 96366; 96374; 96375; 96376; 97110; 97116; 97161; 97530; 99285; A9270; C9113; G0378; G0379; J0692; J2270; J2704; J3010; J7030; J7120; P9047; Q9967

== ENCOUNTER 2021-04-29 18:42 | Observation (INO) | payer MEDICAID, SELFPAY ==
[2021-04-29] VITALS (22 sets, daily range): BP systolic 114–138; BP diastolic 81–97; PULSE 108–123; RESP 12–25; TEMP 36.9; O2SAT 97–100
--- NOTE | ~2021-04-29 | CT_ITS ---
EXAMINATION: CT abdomen pelvis w con DATE: 04/29/2021 21:43 INDICATION: Abdominal pain TECHNIQUE: Computed tomography (CT) of the abdomen and pelvis was performed with 100 cc Omnipaque 350 intravenous contrast. The dose-length product was 600.12 mGy-cm. Automated exposure control and iter ative reconstruction technique were employed. COMPARISON: Comparison to multiple prior studies sequentially, with oldest reviewed study dated 04/10. . FINDINGS: Dependent atelectasis. Heart size normal. Large amount of ascites. Markedly irregular liver with heterogeneous enhancement. Nodular liver surface, consistent with cirrhosis. There are multiple collateral vessels with recanalization of the umbilical vein. Nonobstructive bowel gas pattern. No s ignificant vascular abnormality. There is a hiatal hernia. The spleen, pancreas, adrenal glands and k idneys are unremarkable. No lymphadenopathy. IMPRESSION: 1. Advanced cirrhosis with large amount of ascites. No significant interval change. Due to the extens young abnormality of the liver parenchyma difficult to evaluate for underlying malignancy. 2: Hiatal hernia. Reviewed, dictated and finalized at location A. IMPRESSION: 1. Advanced cirrhosis with large amount of ascites. No significant interval molly nge. Due to the extensive abnormality of the liver parenchyma difficult to eval uate for underlying malignancy. 2: Hiatal hernia.
--- NOTE | ~2021-04-29 | US_ITS ---
EXAMINATION: US paracentesis abd w/image DATE: 04/30/2021 11:15 INDICATION: Ascites. TECHNIQUE: The procedure and its risks, benefits, and alternatives were discussed with the patient. P otential risks discussed included bleeding and infection. The skin was prepped and draped in sterile fashion. 1% lidocaine was used for local anesthesia. Under ultrasound guidance, a 5 Fr catheter with trochar was advanced into the ascites in the left lower quadrant. Fluid was aspirated. The catheter w as removed, and a dressing was applied. There were no immediate complications. FINDINGS: Ultrasound images demonstrate ascites and the catheter within the fluid. IMPRESSION: 1. Successful ultrasound-guided paracentesis yielding 5000 mL of cloudy, yellow fluid. Reviewed, dictated and finalized at location A. IMPRESSION: 1. Successful ultrasound-guided paracentesis yielding 5000 mL of cloudy, yello w fluid.
[2021-04-29 21:05] LABS: Basophils Absolute Auto 0.1 K/mm3 (0.0-0.1); Eosinophils Absolute Auto 0.1 K/mm3 (0-0.3); Hematocrit 29.1 % (42.0-52.0); Hemoglobin 9.7 g/dL (14.0-18.0); Immature Granulocyte Absolute 0.15 K/mm3 (0.00-0.031); Immature Granulocyte Percent A 1.3 % (0-0.5); Lymphocytes Absolute Auto 1.67 K/mm3 (0.9-3.2); Lymphocytes Percent Auto 14.4 % (18.3-44.2); Mean Corpuscular HGB Conc 33.3 g/dl (32-36); Mean Corpuscular Hemoglobin 36.7 pg (26-34); Mean Corpuscular Volume 110.2 fl (80-100); Mean Platelet Volume 8.3 fl (7.4-10.4); Monocytes Absolute Auto 2.3 K/mm3 (0.1-0.6); Monocytes Percent Auto 19.6 % (2.6-8.5); Neutrophils Absolute Auto 7.3 K/mm3 (1.3-6.7); Neutrophils Percent Auto 62.7 % (45.5-73.1); Platelet Count Result 289 k/mm3 (150-375); Red Blood Count 2.64 M/mm3 (4.6-6.20); Red Cell Distribution Width 15.2 % (11.5-14.5); White Blood Count 11.6 K/mm3 (4.5-10.0)
[2021-04-29 21:14] LABS: Add Urine Microscopic? YES; Appearance Urine Clear (Clear); Bacteria Urine Trace /hpf; Bilirubin Urine Negative (Negative); Blood Urine Negative (Negative); Color Urine Amber (Yellow); Glucose Urine UA Negative (Negative); Ketones Urine Negative (Negative); Leukocyte Esterase Ur Negative LEU/UL (Negative); Mucus Urine Heavy /lpf; Nitrate Urine Negative (Negative); Protein Urine 1+ mg/dL (Negative); RBC Urine 0-2 /hpf (0-2); WBC Urine 0-3 /hpf
[2021-04-29 21:15] LABS: Alanine Aminotransferase 25 U/L (4-50); Albumin Level 2.9 g/dL (3.5-5.1); Alkaline Phosphatase 149 U/L (38-126); Anion Gap 6 mmol/L (8-16); Aspartate Amino Transferase 56 U/L (17-59); Bilirubin,Total 0.8 mg/dL (0.2-1.3); Blood Urea Nitrogen 10 mg/dL (9-20); Calcium 8.4 mg/dL (8.4-10.2); Carbon Dioxide 24 mmol/L (22-30); Chloride 105 mmol/L (98-107); Estimated CRCL calculation 152 ml/min; Estimated Glomerular Filt Rate > 60; Glucose 106 mg/dL (75-110); Lipase 477 U/L (23-300); Potassium 4.3 mmol/L (3.4-5.0); Sodium 135 mmol/L (137-145)
[2021-04-29 21:15] LABS: Specific Grav Ur 1.031 (1.001-1.035)
[2021-04-29] MEDS: MORPHINE SULFATE (*CRX) 4 MG/ML INJ IV PUSH ×2 (21:29→23:56)
--- NOTE | 2021-04-29 22:01 | ED.GENADULT ---
HPI - General Adult General Chief complaint: Abdominal Pain Stated complaint: ABD DISTENTION Time Seen by Provider: 04/29/21 21:06 History of Present Illness HPI narrative: Patient a 35-year-old gentleman who presents the emergency department with chief complaint of abdominal pain. Patient reports that he has history of liver cirrhosis and was admitted over the weekend and had a large-volume paracentesis. Patient states he went home and noticed that his abdomen has continued to increase in size and reports that it feels extremely full. Patient states that now it hurts whenever he moves reports that he has difficulty breathing due to the distention of his abdominal cavity. The patient states that he has seen one of the local [facility] and has an appointment scheduled for later this week with [facility] hepatology clinic. Patient denies fever. Related Data Home Medications Medication Instructions Recorded Confirmed furosemide 40 mg PO DAILY 04/20/21 04/20/21 spironolactone [Aldactone] 50 mg PO QAM 04/20/21 04/20/21 thiamine HCl (vitamin B1) 100 mg PO DAILY 04/20/21 04/20/21 Allergies Allergy/AdvReac Type Severity Reaction Status Date / Time No Known Allergies Allergy Verified 04/24/21 11:21 Review of Systems Review of Systems: Narrative: A 10 system review of systems was completed on the patient and is negative except for what is stated in the HPI. Nursing and ancillary documentation was reviewed. [facility] Past Medical History Medical History Acute blood loss anemia Alcohol abuse Alcoholic hepatitis Holt's esophagus with esophagitis Constipation Decompensation of cirrhosis of liver Elevated liver enzymes Tobacco abuse Surgical History Surgical History No pertinent past surgical history Family History Family History Mother Liver disease Cirrhosis Social History Social History Social History: The patient stated that he just quit smoking approximately 1 month ago. The patient had started smoking when he was 10 years old. The patient denies any alcohol or illicit drugs. The patient states that he drinks 6 pt of alcohol a day on the days that he drinks. He typically drinks 2-3 days a week. The patient is a full code. 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 Smoking packs per day: 10 Smoking cigarettes per day: 200.0 Years smoked: 18 Smoking pack-years: 180.00 Smoking status: Former smoker Tobacco type: cigarettes Smoking end date: 03/07/21 Alcohol intake: former Substance use: former Substance use type: does not use Other substance usage details: alcohol Last use: April 10 2021 Gender identity (if verbalized by the patient): Male Spiritual care concerns: No Exam Narrative: Exam Narrative: GENERAL: Well-appearing, well-nourished, and in no acute distress. HEAD: Normocephalic, atraumatic. EYES: PERRLA and EOMI. ENT: Nares clear, no rhinorrhea or epistaxis. Mucous membranes moist. NECK: Supple. CHEST: Clear to auscultation. No respiratory distress. HEART: Tachycardic regular rate and rhythm. No murmur heard. Normal peripheral pulses. ABDOMEN: Soft, nontender, distended, positive fluid wave, normal active bowel sounds. EXTREMITIES: Normal range of motion. No edema. SKIN: Warm, dry, no rash. NEURO: No focal deficits. Alert and oriented x3. PSYCH: Normal mood and affect. Course Vital Signs Vital signs: Vital Signs Temperature 36.9 C 04/29/21 18:40 Pulse Rate 123 H 04/29/21 18:40 Respiratory Rate 23 H 04/29/21 18:40 Blood Pressure 125/97 H 04/29/21 18:40 Pulse Oximetry 100 04/29/21 18:40 Temperature 36.9 C 04/29/21 18:40 Pulse Rate 115 H 04/29/21 22:01 Respira
[2021-04-30 00:05] VITALS: BP 142/89; PULSE 109; RESP 18; TEMP 36.8; O2SAT 100
--- NOTE | 2021-04-30 00:05 | PC.NURSE ---
This patient, Lukas Diaz, was admitted to 3 Med Surg Room 307-01. Patient/family oriented to hospital policies and general routines including ID bracelet, bed and alarms, visiting hours, pain management, procedures, bathroom and other care routines, personal items, smoking policy, room service/diet, and visiting hours. Information on how to activate the Rapid Response Team has been discussed. Patient/Family are encouraged to report perceived risks to care and to ask questions if they do not understand what they are told or what they should do.
[2021-04-30 00:17] VITALS: O2SAT 100
[2021-04-30] MEDS: MORPHINE SULFATE (*CRX) 4 MG/ML INJ IV PUSH ×5 (04:02→20:13)
[2021-04-30 05:46] VITALS: BP 125/76; PULSE 90; RESP 18; TEMP 36.1; O2SAT 100
[2021-04-30 06:13] LABS: Basophils Absolute Auto 0.1 K/mm3 (0.0-0.1); Basophils Percent Auto 1.2 % (0.2-1.2); Eosinophils Absolute Auto 0.1 K/mm3 (0-0.3); Eosinophils Percent Auto 1.3 % (0-4.4); Hematocrit 30.4 % (42.0-52.0); Hemoglobin 9.7 g/dL (14.0-18.0); Immature Granulocyte Absolute 0.07 K/mm3 (0.00-0.031); Immature Granulocyte Percent A 0.7 % (0-0.5); Lymphocytes Absolute Auto 1.77 K/mm3 (0.9-3.2); Lymphocytes Percent Auto 17.9 % (18.3-44.2); Mean Corpuscular HGB Conc 31.9 g/dl (32-36); Mean Corpuscular Hemoglobin 36.2 pg (26-34); Mean Corpuscular Volume 113.4 fl (80-100); Mean Platelet Volume 9.2 fl (7.4-10.4); Monocytes Absolute Auto 1.8 K/mm3 (0.1-0.6); Monocytes Percent Auto 17.8 % (2.6-8.5); Neutrophils Percent Auto 61.1 % (45.5-73.1); Platelet Count Result 336 k/mm3 (150-375); Red Blood Count 2.68 M/mm3 (4.6-6.20); Red Cell Distribution Width 15.2 % (11.5-14.5); White Blood Count 9.9 K/mm3 (4.5-10.0)
[2021-04-30 06:24] LABS: Anion Gap 7 mmol/L (8-16); Blood Urea Nitrogen 11 mg/dL (9-20); Calcium 8.4 mg/dL (8.4-10.2); Carbon Dioxide 25 mmol/L (22-30); Chloride 105 mmol/L (98-107); Estimated CRCL calculation 179 ml/min; Estimated Glomerular Filt Rate > 60; Glucose 85 mg/dL (75-110); Potassium 3.9 mmol/L (3.4-5.0); Sodium 137 mmol/L (137-145)
--- NOTE | 2021-04-30 07:54 | PM.IMHP ---
H&P: HPI History of Present Illness Date/Time: 04/30/21 07:54 Chief Complaint: ABDOMINAL DISTENSION Narrative: THIS IS A 35-YEAR-OLD MALE WITH PAST MEDICAL HISTORY IS SIGNIFICANT FOR HEPATIC CIRRHOSIS WITH HOME I AM WELL ACQUAINTED AFTER SEVERAL ADMISSIONS TO OUR SERVICE DUE TO TENSION ASCITES ABDOMINAL PAIN PATIENT HAS HAD SEVERAL PARACENTESIS PERFORMED. HE WAS RECENTLY DISCHARGED FROM OUR SERVICE AND WAS SUPPOSED TO FOLLOW-UP WITH SALVAGE CLERK WHICH HE HAS APPOINTMENT FOR THIS COMING WEDNESDAY. THIS TIME HE PRESENTED TO THE EMERGENCY ROOM DUE TO TENSION ASCITES WITH ABDOMINAL PAIN, BACK PAIN DIFFICULTY BREATHING. HE DENIES ANY NAUSEA VOMITING OR DIARRHEA NO FEVERS NO RIGORS NO CHILLS NO COUGH NO SPUTUM PRODUCTION. A CT OF THE ABDOMEN DEMONSTRATED ADVANCED HEPATIC CIRRHOSIS WITH LARGE AMOUNT OF ASCITES PRESENT. Review of Systems Review of Systems: Narrative: PATIENT PRESENTED TO THE EMERGENCY ROOM DUE TO ABDOMINAL DISTENSION SHORTNESS OF BREATH BACK PAIN AND ABDOMINAL PAIN Constitutional: Constitutional: Denies chills and Denies fever(s) Eyes: Eyes: Denies change in vision ENT: Reports system reviewed and no additional complaints, except as documented Cardiovascular: Cardiovascular: Reports no additional cardiovascular complaints Respiratory: Respiratory: Reports dyspnea Gastrointestinal: Gastrointestinal: Reports abdominal pain, Denies melena, Denies hematochezia, Denies diarrhea, Denies nausea and Denies vomiting Genitourinary: Genitourinary: Reports no additional male genitourinary complaints Musculoskeletal: Musculoskeletal: Reports back pain Integumentary/Breasts: Skin/Breast: Reports system reviewed and no additional complaints, except as docu Neurologic: Reports system reviewed and no additional complaints, except as documented Psychiatric: Psychiatric: Reports no additional psychiatric complaints Endocrine: Endocrine: Reports no additional endocrine complaints Hematologic/Lymphatic: Hematologic/Lymphatic: Reports no additional hematologic/lymphatic complaints Allergic/Immunologic: Allergic/Immunologic: Reports no additional allergic/immunologic complaints [facility] Past Medical History Medical History Acute blood loss anemia Alcohol abuse Alcoholic hepatitis Holt's esophagus with esophagitis Constipation Decompensation of cirrhosis of liver Elevated liver enzymes Tobacco abuse Surgical History Surgical History No pertinent past surgical history Family History Family History Mother Liver disease Cirrhosis Social History Social History Social History: The patient stated that he just quit smoking approximately 1 month ago. The patient had started smoking when he was 10 years old. The patient denies any alcohol or illicit drugs. The patient states that he drinks 6 pt of alcohol a day on the days that he drinks. He typically drinks 2-3 days a week. The patient is a full code. 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 Smoking packs per day: 0.5 Smoking cigarettes per day: 10.0 Years smoked: 18 Smoking pack-years: 9.00 Smoking status: Former smoker Tobacco type: cigarettes Smoking end date: 03/25/21 Alcohol intake: former Substance use: never Substance use type: does not use Other substance usage details: alcohol Last use: April 10 2021 Gender identity (if verbalized by the patient): Male Spiritual care concerns: No Meds Home Medications and Allergies Home Medications Medication Instructions Recorded Confirmed Type folic acid 1 mg PO DAILY #30 tablet 04/11/21 04/30/21 Rx pantoprazole 40 mg PO Q12HR #60 tablet 04/11/21 04/30/21 Rx furosemide 40 mg PO DAILY 04/20/21 04/30/21 History spir
[2021-04-30 08:04] LABS: INR 1.2; Prothrombin Time 15.4 Seconds (11.1-14.7)
[2021-04-30 08:05] LABS: Partial Thromboplastin Time 33.9 SECONDS (22.3-36.8)
[2021-04-30 10:39] VITALS: O2SAT 99
[2021-04-30] MEDS: ALBUMIN HUMAN 25% 12.5 GM/50ML 50 ML IVPB ×2 (12:17→17:32)
[2021-04-30] MEDS: PANTOPRAZOLE 40 MG TABLET PO ×2 (12:19→20:14)
[2021-04-30] MEDS: SPIRONOLACTONE 50 MG TABLET PO (12:19)
[2021-04-30] MEDS: THIAMINE HCL 100 MG TABLET PO (12:19)
[2021-04-30] MEDS: FOLIC ACID 1 MG TABLET PO (12:19)
[2021-04-30] MEDS: FUROSEMIDE 40 MG TABLET PO (12:19)
[2021-04-30 14:00] VITALS: BP 114/60; PULSE 110; RESP 16; TEMP 36.6; O2SAT 98
[2021-04-30] MEDS: LACTULOSE 20 GM/30 ML UDC PO (17:32)
--- NOTE | 2021-04-30 19:39 | PC.NURSE ---
Pt has had multiple requests throughout the day. When we go in to take care of pt needs, his phone is out and appears to be on a call. I asked pt if we were interrupting his call, he stated no, he is on with family. Pt phone has been on a call for four hour duration. Pt very concerned about a rash that is normally present upon his penis, but that it has changed colors. He did not want this female RN to view it or his female doctor to view it. Dr. Espinoza in to view; prescribed cream and okayed for us to give pt a small dose that he himself can apply. Pt very concerned with us viewing him in the bathroom. Pt put trash can in front of door, after we assisted him to a seated position. We asked him to let us know when he would stand so we could assist him to sink/back to bed. Pt not complying. Advised pt we will be with him at all times during bathroom visits. He seems very agitated and concerned. We assured him we wanted him to be safe. Pt asking for his pain meds every four hours, to the minute. He expressed concern over not being able to get it right at 1999 because of shift change and asked if we could give it to him 90 minutes early. I informed him that we would not be able to accomodate that request and that I would pass on to the oncoming nurse that he would like his pain medications as soon as he could receive them, just after 1999. Introduced new RN to pt and reiterated the pt concerns over pain medications with oncoming RN in front of pt. Advised new RN to monitor.
[2021-04-30 22:00] VITALS: BP 114/74; PULSE 116; RESP 18; TEMP 36.4; O2SAT 100
[2021-05-01] MEDS: MUPIROCIN 2% OINT 22 GM TUBE 1 APPLIC TOPICAL ×4 (01:06→16:58)
[2021-05-01] MEDS: MORPHINE SULFATE (*CRX) 4 MG/ML INJ IV PUSH ×4 (01:11→19:59)
[2021-05-01] MEDS: ALBUMIN HUMAN 25% 12.5 GM/50ML 50 ML IVPB ×2 (01:11→06:12)
[2021-05-01 05:39] VITALS: BP 114/60; PULSE 99; RESP 18; TEMP 36.8; O2SAT 98
--- NOTE | 2021-05-01 06:54 | PCDIET ---
Patient complained of leaking at paracentesis site at this time. Loose gauze taped at the corners was placed across site. There was just a scant amount of drainage observed at that time.
[2021-05-01] MEDS: FUROSEMIDE 40 MG TABLET PO (08:50)
[2021-05-01] MEDS: FOLIC ACID 1 MG TABLET PO (08:50)
[2021-05-01] MEDS: THIAMINE HCL 100 MG TABLET PO (08:51)
[2021-05-01] MEDS: SPIRONOLACTONE 50 MG TABLET PO (08:51)
[2021-05-01] MEDS: PANTOPRAZOLE 40 MG TABLET PO ×2 (08:51→19:56)
[2021-05-01 09:09] LABS: Basophils Absolute Auto 0.1 K/mm3 (0.0-0.1); Basophils Percent Auto 1.1 % (0.2-1.2); Eosinophils Absolute Auto 0.3 K/mm3 (0-0.3); Eosinophils Percent Auto 3.7 % (0-4.4); Hematocrit 25.7 % (42.0-52.0); Hemoglobin 8.6 g/dL (14.0-18.0); Immature Granulocyte Absolute 0.03 K/mm3 (0.00-0.031); Immature Granulocyte Percent A 0.4 % (0-0.5); Lymphocytes Absolute Auto 1.17 K/mm3 (0.9-3.2); Lymphocytes Percent Auto 15.7 % (18.3-44.2); Mean Corpuscular HGB Conc 33.5 g/dl (32-36); Mean Corpuscular Hemoglobin 36.8 pg (26-34); Mean Corpuscular Volume 109.8 fl (80-100); Monocytes Absolute Auto 1.1 K/mm3 (0.1-0.6); Neutrophils Absolute Auto 4.8 K/mm3 (1.3-6.7); Neutrophils Percent Auto 64.1 % (45.5-73.1); Platelet Count Result 271 k/mm3 (150-375); Red Blood Count 2.34 M/mm3 (4.6-6.20); Red Cell Distribution Width 14.7 % (11.5-14.5); White Blood Count 7.5 K/mm3 (4.5-10.0)
[2021-05-01 09:19] LABS: INR 1.5; Prothrombin Time 18.2 Seconds (11.1-14.7)
[2021-05-01 09:23] LABS: Alanine Aminotransferase 20 U/L (4-50); Albumin Level 2.9 g/dL (3.5-5.1); Alkaline Phosphatase 101 U/L (38-126); Anion Gap 9 mmol/L (8-16); Aspartate Amino Transferase 42 U/L (17-59); Bilirubin,Total 1.2 mg/dL (0.2-1.3); Blood Urea Nitrogen 8 mg/dL (9-20); Calcium 8.3 mg/dL (8.4-10.2); Carbon Dioxide 25 mmol/L (22-30); Chloride 100 mmol/L (98-107); Estimated CRCL calculation 179 ml/min; Estimated Glomerular Filt Rate > 60; Glucose 118 mg/dL (75-110); Potassium 3.6 mmol/L (3.4-5.0); Sodium 134 mmol/L (137-145)
[2021-05-01] MEDS: LACTULOSE 20 GM/30 ML UDC PO (13:46)
[2021-05-01 14:00] VITALS: BP 104/66; PULSE 103; RESP 18; TEMP 36.6; O2SAT 100
--- NOTE | 2021-05-01 17:31 | PM.IMPN ---
Progress Note: A&P Assessment and Plan (1) Abdominal ascites: Qualifiers: Ascites type: due to alcoholic cirrhosis Qualified Code(s): K70.31 - Alcoholic cirrhosis of liver with ascites Code(s): R18.8 - Other ascites Status: Acute Assessment and Plan: presented with abdominal pain and leukocytosis -5 L of fluid removed with albumin infusion no fluid analysis sent from paracentesis This morning patient has started to reaccumulate fluid; abdomen appears distended as well will start the patient on fluid restriction to 800 mL daily 2 g sodium diet Lasix to be continued at 40 mg daily Aldactone to be increased to 100 mg daily from 50 mg; to keep to keep her Lasix to spironolactone ratio of 40:100 in keeping with current cirrhosis guidelines patient to be discharge tomorrow as he has appointment and transportation set up by himself at [facility] (2) Constipation: Qualifiers: Constipation type: unspecified constipation type Qualified Code(s): K59.00 - Constipation, unspecified Code(s): K59.00 - Constipation, unspecified Status: Acute Assessment and Plan: patient was started on lactulose on p.r.n. basis However on exam noted to have mild asterixis Will start patient on lactulose 10 mg t.i.d. scheduled to be titrated to 3 bowel movements (3) Holt's esophagus with esophagitis: Code(s): K22.70 - Holt's esophagus without dysplasia; K20.90 - Esophagitis, unspecified without bleeding Status: Acute Assessment and Plan: continue medications (4) Alcohol abuse: Code(s): F10.10 - Alcohol abuse, uncomplicated Status: Chronic Assessment and Plan: not been on alcohol for a while would not require [facility] protocol (5) Anemia of chronic disease: Code(s): D63.8 - Anemia in other chronic diseases classified elsewhere Status: Acute Assessment and Plan: noted to have anemia Will check ferritin, vitamin B12 levels, folic acid levels and iron saturation Subjective Date/time seen: 05/01/21 17:31 Interval history: patient continues to have abdominal pain Status post -5 L removal Plan for discharge tomorrow and will be taken directly to [facility] GI facility as per patient Review of Systems Review of Systems: Narrative: a 10 point review of system was conducted which was otherwise negative Exam Const: General: cooperative HENMT: Head: normal to inspection Eyes: General: appearance normal, both eyes and all related structures Neck: Neck: normal visual inspection Resp: Auscultation: clear to auscultation bilaterally Percussion: percussion normal Cardio: Jugular venous distension: no JVD Rate: regular rate Rhythm: regular rhythm Heart sounds: S1 normal heart sound present and S2 normal heart sound present GI: Inspection: normal to inspection GI Palp: Yes abdominal tenderness, Yes Hepatosplenomegaly present and Yes Ascites present Percussion: Yes dullness to percussion and Yes Fluid wave present Auscultation: normal bowel sounds Back/Spine/Pelvis: Back: no CVA tenderness Skin: General skin exam: normal color Neuro: General: patient oriented x3, gait normal and tone normal Extrem: General: normal to inspection Right lower extremity: normal to inspection Psych: Appearance: grossly normal Objective Data Vital Signs Vital Signs: Vital Signs - 24 hr 04/30/21 22:00 05/01/21 05:39 05/01/21 14:00 Temperature 97.5 F L 98.3 F 97.9 F Pulse Rate 116 H 99 103 H Respiratory Rate 18 18 18 Blood Pressure 114/74 114/60 104/66 Pulse Oximetry 100 98 100 Intake/Output Intake/Output: Intake & Output 04/28/21 04/29/21 04/30/21 05/01/21 23:59 23:59 23:59 23:59 Intake Total 1920 2350 Output Total 5860 1115 Balance -3947 1235 Meds/Results Medications: Active Medications Generic Name Dose Route Start Last Admin Trade Name Freq PRN Reason Stop Dose Admin Folic Acid 1 mg 0
[2021-05-01 21:40] VITALS: BP 131/71; PULSE 96; RESP 18; TEMP 36.8; O2SAT 97
[2021-05-02] MEDS: MORPHINE SULFATE (*CRX) 4 MG/ML INJ IV PUSH ×2 (01:22→06:15)
[2021-05-02 05:51] VITALS: BP 120/68; PULSE 90; RESP 18; TEMP 36.7; O2SAT 98
[2021-05-02 06:29] LABS: Basophils Absolute Auto 0.1 K/mm3 (0.0-0.1); Eosinophils Absolute Auto 0.3 K/mm3 (0-0.3); Eosinophils Percent Auto 3.2 % (0-4.4); Hematocrit 27.2 % (42.0-52.0); Hemoglobin 8.7 g/dL (14.0-18.0); Immature Granulocyte Absolute 0.05 K/mm3 (0.00-0.031); Immature Granulocyte Percent A 0.6 % (0-0.5); Lymphocytes Absolute Auto 1.45 K/mm3 (0.9-3.2); Lymphocytes Percent Auto 16.8 % (18.3-44.2); Mean Corpuscular Hemoglobin 35.8 pg (26-34); Mean Corpuscular Volume 111.9 fl (80-100); Mean Platelet Volume 9.5 fl (7.4-10.4); Monocytes Absolute Auto 1.4 K/mm3 (0.1-0.6); Neutrophils Absolute Auto 5.4 K/mm3 (1.3-6.7); Neutrophils Percent Auto 62.4 % (45.5-73.1); Platelet Count Result 281 k/mm3 (150-375); Red Blood Count 2.43 M/mm3 (4.6-6.20); Red Cell Distribution Width 14.6 % (11.5-14.5); White Blood Count 8.7 K/mm3 (4.5-10.0)
[2021-05-02 06:37] LABS: INR 1.5; Prothrombin Time 17.4 Seconds (11.1-14.7)
[2021-05-02 06:39] LABS: Alanine Aminotransferase 20 U/L (4-50); Albumin Level 2.7 g/dL (3.5-5.1); Alkaline Phosphatase 107 U/L (38-126); Anion Gap 5 mmol/L (8-16); Aspartate Amino Transferase 42 U/L (17-59); Bilirubin,Total 0.9 mg/dL (0.2-1.3); Blood Urea Nitrogen 7 mg/dL (9-20); Calcium 8.1 mg/dL (8.4-10.2); Carbon Dioxide 26 mmol/L (22-30); Chloride 102 mmol/L (98-107); Estimated CRCL calculation 179 ml/min; Estimated Glomerular Filt Rate > 60; Glucose 85 mg/dL (75-110); Potassium 3.6 mmol/L (3.4-5.0); Sodium 133 mmol/L (137-145)
[2021-05-02 07:01] LABS: Iron 21 ug/dL (49-181)
[2021-05-02 07:11] LABS: Percent Iron Saturation 11 % (20-50)
[2021-05-02 07:43] LABS: Folic Acid 13.2 ng/mL (2.76->20)
[2021-05-02] MEDS: FOLIC ACID 1 MG TABLET PO (08:44)
[2021-05-02] MEDS: FUROSEMIDE 40 MG TABLET PO (08:44)
[2021-05-02] MEDS: LACTULOSE 20 GM/30 ML UDC 10 GM PO (08:45)
[2021-05-02] MEDS: MUPIROCIN 2% OINT 22 GM TUBE 1 APPLIC TOPICAL (08:45)
[2021-05-02] MEDS: THIAMINE HCL 100 MG TABLET PO (08:46)
[2021-05-02] MEDS: SPIRONOLACTONE 50 MG TABLET 100 MG PO (08:46)
[2021-05-02] MEDS: PANTOPRAZOLE 40 MG TABLET PO (08:46)
--- NOTE | 2021-05-02 10:48 | PM.DS ---
DS: Admitting Diagnosis Admitting Diagnosis Admitting Diagnosis: Abdominal ascites DS: Discharge Diagnosis Discharge Diagnosis (1) Anemia of chronic disease: Code(s): D63.8 - Anemia in other chronic diseases classified elsewhere Status: Acute (2) Ascites of liver: Code(s): R18.8 - Other ascites Status: Acute (3) Abdominal ascites: Qualifiers: Ascites type: due to alcoholic cirrhosis Qualified Code(s): K70.31 - Alcoholic cirrhosis of liver with ascites Code(s): R18.8 - Other ascites Status: Acute (4) Constipation: Qualifiers: Constipation type: unspecified constipation type Qualified Code(s): K59.00 - Constipation, unspecified Code(s): K59.00 - Constipation, unspecified Status: Acute (5) Decompensation of cirrhosis of liver: Code(s): K72.90 - Hepatic failure, unspecified without coma; K74.60 - Unspecified cirrhosis of liver Status: Acute (6) Alcohol abuse: Code(s): F10.10 - Alcohol abuse, uncomplicated Status: Chronic DS: Summary Hospital Course Reason for hospitalization: abdominal ascites Hospital Course: at 35-year-old male with past medical history significant for alcoholic cirrhosis complicated with recurrent ascites presented with abdominal pain and shortness of breath. he was noted to have significant amount of abdominal ascites requiring paracentesis with -5 L out with albumin infusion on the day of admission. The during the course of his stay he was started on low-sodium diet fluid restriction to 800 mL daily Lasix dose given p.o. 40 mg daily and Aldactone dose was increased to 100 mg daily in keeping with the current cirrhosis guidelines. patient reported that he had an appointment with GI at [facility] for which he would be picked up by their transportation today 05/02, however it was later found that he did not have an appointment and he was discharged with outpatient follow-up. During the course of his stay he was also noted to have constipation for which lactulose was started at 10 mg t.i.d. which did not help him and it was increased to 20 mg t.i.d.. Patient was discharged in stable condition Time Spent with Patient Time attestation: Total time spent providing and/or coordinating discharge services:>30 minutes Exam Const: General: cooperative HENMT: Head: normal to inspection Eyes: Eyelids: eyelids normal Neck: Neck: normal visual inspection Resp: Effort & Inspection: normal respiratory effort Auscultation: clear to auscultation bilaterally Percussion: percussion normal Cardio: Jugular venous distension: no JVD Rate: regular rate Rhythm: regular rhythm and abnormal rhythm Heart sounds: S1 normal heart sound present and S2 normal heart sound present GI: GI Palp: Yes abdominal tenderness ( mildly tender over the left side where paracentesis was done), Yes Firmness to palpation present (GI), Yes Hepatosplenomegaly present and Yes Ascites present Back/Spine/Pelvis: Back: no CVA tenderness Skin: General skin exam: normal color Neuro: General: patient oriented x3 Extrem: General: normal to inspection Psych: Appearance: grossly normal DS: Data Data Completed and Pending Labs on day of discharge: Labs from last 24 hours 05/02/21 05/02/21 05/02/21 05:39 05:39 05:39 WBC RBC Hgb Hct MCV MCH MCHC RDW Plt Count MPV Immature Gran % (Auto) Neut % (Auto) Lymph % (Auto) Swisher % (Auto) Eos % (Auto) Baso % (Auto) Lymph # (Auto) Swisher # (Auto) Eos # (Auto) Baso # (Auto) Abs Immat Gran (auto) Absolute Neuts (auto) Absolute Nucleated RBC Nucleated RBC % PT INR Sodium 133 L Potassium 3.6 Chloride 102 Carbon Dioxide 26 Anion Gap 5 L BUN 7 L Creatinine 0.50 L Estim Creat Clear Calc 179 Estimated GFR > 60 Glucose 85 Calcium 8.1 L Iron 21 L TIBC 194 L % Satura
== END 2021-05-02 11:00 | disposition home or self-care (01) ==
LOC: ANHED 23:00 → ANH3MEDSUR 23:30
PROVIDERS: Emergency Medicine; Internal Medicine; Admitting Provider Internal Medicine; Emergency Provider Emergency Medicine; Visit Provider Internal Medicine
DX: K70.31 Alcoholic cirrhosis of liver with ascites (principal); D63.8 Anemia in other chronic diseases classified elsewhere; K59.00 Constipation, unspecified; K72.90 Hepatic failure, unspecified without coma; F10.10 Alcohol abuse, uncomplicated
CPT/HCPCS: 36415; 49083; 74177; 80048; 80053; 81001; 82607; 82728; 82746; 83540; 83550; 83690; 85025; 85610; 85730; 96365; 96366; 96374; 96375; 96376; 99285; A9270; G0378; G0379; J2270; P9047; Q9967

== ENCOUNTER 2021-05-03 20:37 | Emergency (ER) | payer MEDICAID, SELFPAY ==
[2021-05-03] VITALS (12 sets, daily range): BP systolic 118–134; BP diastolic 83–92; PULSE 94–114; RESP 14–20; TEMP 36.9; O2SAT 97–100
--- NOTE | ~2021-05-03 | XR_ITS ---
EXAMINATION: XR ribs LT 2V w CXR 2V DATE: 05/03/2021 21:45 INDICATION: Left chest pain. Fall. TECHNIQUE: Frontal and lateral views of the chest and 3 views of the left ribs were obtained. COMPARISON: CT abdomen and pelvis 04/29/21 FINDINGS: CHEST TWO VIEWS: The chest demonstrates clear lungs without pneumonia, pleural effusion, or pneumotho rax. The heart size is normal. LEFT RIBS: There is no rib fracture. IMPRESSION: 1. No rib fracture. Reviewed, dictated and finalized at location A. IMPRESSION: 1. No rib fracture.
[2021-05-03] MEDS: ONDANSETRON HCL ODT 4 MG TABLET PO (21:45)
--- NOTE | 2021-05-03 22:17 | PC.NURSE ---
Pt c/o abd pain. ED MD in room.
--- NOTE | 2021-05-03 22:38 | ED.GENADULT ---
HPI - General Adult General Chief complaint: Abdominal Pain Stated complaint: abd pain Time Seen by Provider: 05/03/21 21:07 History of Present Illness HPI narrative: Patient is a 35-year-old male who presents ER with some upper abdominal pain as well as left chest wall pain. Patient reports he was sitting on the toilet was leaning forward to grab some toilet paper when he fell forwards. He struck his head but did not lose consciousness. He struck his head right beneath his right eye. There is no bruising or swelling. He also reports he struck the left side of his chest. He thinks went and got a drink of water and when he swallowed he felt a sharp pain go from his chest into his upper abdomen. He has not had any nausea or vomiting since then. He has found no alleviating factors but has not tried any pain medication. Patient was discharged from the hospital yesterday after being evaluated for ascites. Patient reports pain in the left chest from the fall causes him some discomfort with taking a deep breath. Related Data Home Medications Medication Instructions Recorded Confirmed furosemide 40 mg PO DAILY 04/20/21 04/30/21 thiamine HCl (vitamin B1) 100 mg PO DAILY 04/20/21 04/30/21 Allergies Allergy/AdvReac Type Severity Reaction Status Date / Time peanut Allergy Anaphylaxis Verified 05/03/21 20:47 Review of Systems Review of Systems: All systems reviewed & are unremarkable except as noted in HPI and below Constitutional: Constitutional: Denies chills, Denies fever(s) and Denies weakness ENT: Denies nasal congestion and Denies sore throat Cardiovascular: Cardiovascular: Reports chest pain, Denies rapid heart rate and Denies radiating jaw, neck or arm pain Respiratory: Respiratory: Denies cough and Denies dyspnea Comments: Pain with deep breath Gastrointestinal: Gastrointestinal: Denies abdominal pain, Reports nausea and Denies vomiting PMFSH Past Medical History Medical History Acute blood loss anemia Alcohol abuse Alcoholic hepatitis Holt's esophagus with esophagitis Constipation Decompensation of cirrhosis of liver Elevated liver enzymes Tobacco abuse Surgical History Surgical History No pertinent past surgical history Family History Family History Mother Liver disease Cirrhosis Social History Social History Social History: The patient stated that he just quit smoking approximately 1 month ago. The patient had started smoking when he was 10 years old. The patient denies any alcohol or illicit drugs. The patient states that he drinks 6 pt of alcohol a day on the days that he drinks. He typically drinks 2-3 days a week. The patient is a full code. 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 Smoking packs per day: 0.5 Smoking cigarettes per day: 10.0 Years smoked: 18 Smoking pack-years: 9.00 Smoking status: Former smoker Tobacco type: cigarettes Smoking end date: 03/25/21 Alcohol intake: former Substance use: never Substance use type: does not use Other substance usage details: alcohol Last use: April 10 2021 Gender identity (if verbalized by the patient): Male Spiritual care concerns: No Exam Narrative: Exam Narrative: GENERAL: Chronically ill-appearing, well-nourished, and in no acute distress. HEAD: Normocephalic, atraumatic. ENT: Mucous membranes moist. CHEST: Clear to auscultation. No respiratory distress. HEART: Regular rate and rhythm. Normal peripheral pulses. ABDOMEN: Soft, nontender, distended. EXTREMITIES: Normal range of motion. 2+ edema. SKIN: Warm, dry, bruising of the extremities from IV sticks. NEURO: Alert and oriented x3. PSYCH: Normal mood and affect. Course Co
--- NOTE | 2021-05-03 23:29 | PC.NURSE ---
No ride. to wr to find one after telling staff that his emergency contact was unavailable at this time . ambulatory c steady, even, unassisted gait to lobby
== END 2021-05-03 23:31 | disposition home or self-care (01) ==
PROVIDERS: Emergency Provider Emergency Medicine
DX: R07.89 Other chest pain (principal); K22.70 Barrett's esophagus without dysplasia; K74.60 Unspecified cirrhosis of liver; K70.10 Alcoholic hepatitis without ascites; Z87.891 Personal history of nicotine dependence; F10.10 Alcohol abuse, uncomplicated
CPT/HCPCS: 71046; 71100; 99283; A9270

== ENCOUNTER 2021-05-05 16:05 | Observation (INO) | payer MEDICAID, SELFPAY ==
[2021-05-05] VITALS (11 sets, daily range): BP systolic 126–147; BP diastolic 79–90; PULSE 104–125; RESP 13–20; TEMP 36.6–37.4; O2SAT 98–100; BMI 25.2
--- NOTE | ~2021-05-05 | US_ITS ---
EXAMINATION: US paracentesis abd w/image DATE: 05/06/2021 09:53 INDICATION: Ascites. TECHNIQUE: The procedure and its risks, benefits, and alternatives were discussed with the patient. P otential risks discussed included bleeding and infection. The skin was prepped and draped in sterile fashion. 1% lidocaine was used for local anesthesia. Under ultrasound guidance, a 5 Fr catheter with trochar was advanced into the ascites in the left lower quadrant. Fluid was aspirated. The catheter w as removed, and a dressing was applied. There were no immediate complications. FINDINGS: Ultrasound images demonstrate ascites and the catheter within the fluid. IMPRESSION: 1. Successful ultrasound-guided paracentesis yielding 5000 mL of clear, yellow fluid. Reviewed, dictated and finalized at location A.
--- NOTE | ~2021-05-05 | XR_ITS ---
EXAMINATION: XR knee LT 2V EXAM DATE: 05/07/2021 15:54 INDICATION: Fall few weeks ago, knee is tender to the touch. TECHNIQUE: Frontal and lateral projections of the left knee. There is no prior study for comparison . FINDINGS: Joint space is maintained. No left knee joint effusion. There are no acute fractures or di slocations identified. There is no subcutaneous gas. The soft tissue is unremarkable. There are n o radiopaque foreign bodies. IMPRESSION: 1. Unremarkable XR knee LT 2V exam. Reviewed, dictated and finalized at location A.
[2021-05-05 17:07] LABS: Alanine Aminotransferase 25 U/L (4-50); Albumin Level 3.3 g/dL (3.5-5.1); Alkaline Phosphatase 132 U/L (38-126); Anion Gap 8 mmol/L (8-16); Aspartate Amino Transferase 58 U/L (17-59); Bilirubin,Total 0.5 mg/dL (0.2-1.3); Blood Urea Nitrogen 6 mg/dL (9-20); Calcium 8.4 mg/dL (8.4-10.2); Carbon Dioxide 22 mmol/L (22-30); Chloride 110 mmol/L (98-107); Estimated CRCL calculation 116 ml/min; Estimated Glomerular Filt Rate > 60; Glucose 111 mg/dL (75-110); Lipase 413 U/L (23-300); Potassium 4.1 mmol/L (3.4-5.0); Sodium 140 mmol/L (137-145)
[2021-05-05 18:44] LABS: Add Urine Microscopic? YES; Appearance Urine Turbid (Clear); Bilirubin Urine Negative (Negative); Blood Urine Negative (Negative); Color Urine Amber (Yellow); Glucose Urine UA Negative (Negative); Ketones Urine Negative (Negative); Leukocyte Esterase Ur Negative LEU/UL (Negative); Mucus Urine Heavy /lpf; Nitrate Urine Negative (Negative); Protein Urine 1+ mg/dL (Negative); Specific Grav Ur 1.027 (1.001-1.035)
[2021-05-05 19:51] LABS: Basophils Absolute Auto 0.1 K/mm3 (0.0-0.1); Basophils Percent Auto 1.4 % (0.2-1.2); Eosinophils Absolute Auto 0.1 K/mm3 (0-0.3); Eosinophils Percent Auto 1.3 % (0-4.4); Hematocrit 30.3 % (42.0-52.0); Hemoglobin 9.7 g/dL (14.0-18.0); Immature Granulocyte Absolute 0.05 K/mm3 (0.00-0.031); Immature Granulocyte Percent A 0.5 % (0-0.5); Lymphocytes Percent Auto 17.1 % (18.3-44.2); Mean Corpuscular Hemoglobin 35.3 pg (26-34); Mean Corpuscular Volume 110.2 fl (80-100); Mean Platelet Volume 8.2 fl (7.4-10.4); Monocytes Absolute Auto 1.9 K/mm3 (0.1-0.6); Monocytes Percent Auto 19.2 % (2.6-8.5); Neutrophils Percent Auto 60.5 % (45.5-73.1); Platelet Count Result 296 k/mm3 (150-375); Red Blood Count 2.75 M/mm3 (4.6-6.20); Red Cell Distribution Width 14.6 % (11.5-14.5); White Blood Count 9.9 K/mm3 (4.5-10.0)
--- NOTE | 2021-05-05 20:18 | ED.ABDPAIN ---
HPI - Abdominal Pain General Chief Complaint: Abdominal Pain Stated Complaint: ABD PAIN Time Seen by Provider: 05/05/21 19:01 Source: patient Mode of arrival: ambulatory Limitations: no limitations History of Present Illness HPI narrative: Patient 35 years old white male presents with increased the size of the situs causing abdominal pain. Worse this morning after waking up from sleep. Patient report some nausea. Denies any fever, chills. Last alcohol intake 4 weeks ago, last paracentesis approximately 1-1/2 to 2 weeks ago Related Data Home Medications Medication Instructions Recorded Confirmed furosemide 40 mg PO DAILY 04/20/21 04/30/21 thiamine HCl (vitamin B1) 100 mg PO DAILY 04/20/21 04/30/21 Allergies Allergy/AdvReac Type Severity Reaction Status Date / Time peanut Allergy Anaphylaxis Verified 05/03/21 20:47 Review of Systems Review of Systems: Narrative: CONSTITUTIONAL: Denies fever, chills, or sweats. EYES: Denies visual changes, redness, or discharge. ENT: Denies rhinorrhea, congestion, sore throat, or otalgia. CARDIOVASCULAR: Denies chest pain, palpitations, or edema. RESPIRATORY: Denies cough or dyspnea. GASTROINTESTINAL: Denies abdominal pain, nausea, vomiting, or diarrhea. GENITOURINARY: Denies dysuria or hematuria. SKIN: Denies rash or itching. MUSCULOSKELETAL: Denies back pain, joint pain, or myalgia. NEUROLOGIC: Denies headache, numbness, or weakness. PSYCHIATRIC: Denies anxiety or depression. [facility] Past Medical History Medical History Acute blood loss anemia Alcohol abuse Alcoholic hepatitis Holt's esophagus with esophagitis Constipation Decompensation of cirrhosis of liver Elevated liver enzymes Tobacco abuse Surgical History Surgical History No pertinent past surgical history Family History Family History Mother Liver disease Cirrhosis Social History Social History Social History: The patient stated that he just quit smoking approximately 1 month ago. The patient had started smoking when he was 10 years old. The patient denies any alcohol or illicit drugs. The patient states that he drinks 6 pt of alcohol a day on the days that he drinks. He typically drinks 2-3 days a week. The patient is a full code. 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 Smoking packs per day: 0.5 Smoking cigarettes per day: 10.0 Years smoked: 18 Smoking pack-years: 9.00 Smoking status: Former smoker Tobacco type: cigarettes Smoking end date: 03/25/21 Alcohol intake: former Substance use: never Substance use type: does not use Other substance usage details: alcohol Last use: April 10 2021 Gender identity (if verbalized by the patient): Male Spiritual care concerns: No Exam Narrative: Exam Narrative: General appearance: Well-developed, well-nourished, ill looking, poor hygienic condition Skin: Normal color Head: Normocephalic, nontraumatic Eyes: Clear conjunctiva Neck: JVD Chest and respiratory: Airway patent, no respiratory distress, no accessory muscle use Heart: Regular rate/rhythm Abdomen: Tense large ascites, hypoactive bowel sounds Vascular: Normal peripheral pulses, normal capillary refill. Musculoskeletal: Normal range of motion, nontender back Neurologic: Alert and oriented ?3, MANAGER FILE is normal as tested, no gross motor deficit Course Course Emergency Course: Stable Dr. Cat Consultations Consultation #1: Dr. Cat: Admit for john
[2021-05-05 20:45] LABS: Ethanol 163 mg/dL (<10)
--- NOTE | 2021-05-05 22:45 | ADMGEN ---
This patient, Lukas Diaz, was admitted to Medical Room 346-01. Patient/family oriented to hospital policies and general routines including ID bracelet, bed and alarms, visiting hours, pain management, procedures, bathroom and other care routines, personal items, smoking policy, room service/diet, and visiting hours. Information on how to activate the Rapid Response Team has been discussed. Patient/Family are encouraged to report perceived risks to care and to ask questions if they do not understand what they are told or what they should do.
[2021-05-06 06:00] VITALS: BP 124/76; PULSE 102; RESP 16; TEMP 36.1; O2SAT 100
--- NOTE | 2021-05-06 11:39 | PCNSR ---
On 05/06/21, the student,Susan Manzano, provided care and completed [facility] documentation on this patient. I have reviewed the student's documentation and agree with the findings.
[2021-05-06] MEDS: LIDOCAINE 5% PATCH 1 PATCH TRANSDERM (12:05)
[2021-05-06] MEDS: GABAPENTIN 100 MG CAPSULE PO ×2 (12:06→17:17)
--- NOTE | 2021-05-06 12:08 | PM.IMHP ---
H&P: HPI History of Present Illness Date/Time: 05/06/21 10:40 Chief Complaint: Abdominal pain Narrative: Brain is a 35-year-old male with a past medical history for hepatic cirrhosis and has been here for several admissions over the past month due to ascites Who presented to the ED for evaluation of abdominal pain patient stated is only able to sit up right and was having a hard time was breathing, nausea, vomiting. He also stated that he was having abdominal pain all night with no relief he stated that the pain feels like he has a knife going from the left the right it is constant any took nothing to try to help with that. He also stated that he feels lightheaded and dizzy and when he stands up he does get some numb numbness and shooting pains in his foot. He does say that when rest the pain does subside. Patient also states that when he coughs he tastes metallic like iron. Patient denied chest pain sweats, chills, fevers, falls, or syncope. Patient has been admitted under observational status for a therapeutic paracentesis. Review of Systems Review of Systems: All systems reviewed & are unremarkable except as noted in HPI and below PMFSH Past Medical History Medical History (Updated 05/06/21 @ 15:20 by Eric Oconnell MD) Acute blood loss anemia Alcohol abuse Alcoholic hepatitis Holt's esophagus with esophagitis Constipation Decompensation of cirrhosis of liver Elevated liver enzymes Nausea Tobacco abuse Surgical History Surgical History No pertinent past surgical history Family History Family History Mother Liver disease Cirrhosis Grandparent Heart failure Heart attack Social History Social History Social History: The patient stated that he just quit smoking approximately 3 month ago. The patient had started smoking when he was 10 years old. The patient denies any alcohol Since his 1st admission or illicit drugs. The patient states that he drinks 6 pt of alcohol a day on the days that he drinks. He typically drinks 2-3 days a week. The patient is a full code. the patient would also like his father Rigo to be his surrogate. Smoking packs per day: 0.5 Smoking cigarettes per day: 10.0 Years smoked: 18 Smoking pack-years: 9.00 Smoking status: Former smoker Tobacco type: cigarettes Smoking end date: 02/06/21 Alcohol intake: former Substance use: never Substance use type: does not use Other substance usage details: alcohol Last use: April 10 2021 Living arrangements: alone Additional living arrangements comments: Patient that in [place] by himself with no pets Gender identity (if verbalized by the patient): Male Spiritual care concerns: No Meds Home Medications and Allergies Home Medications Medication Instructions Recorded Confirmed Type folic acid 1 mg PO DAILY #30 tablet 04/11/21 05/05/21 Rx pantoprazole 40 mg PO Q12HR #60 tablet 04/11/21 05/05/21 Rx furosemide 40 mg PO DAILY 04/20/21 05/05/21 History thiamine HCl (vitamin B1) 100 mg PO DAILY 04/20/21 05/05/21 History lactulose 20 g PO TID 30 Days #30 ml 05/02/21 05/05/21 Rx spironolactone [Aldactone] 100 mg PO QAM #30 tablet 05/02/21 05/05/21 Rx Allergies Allergy/AdvReac Type Severity Reaction Status Date / Time peanut Allergy Anaphylaxis Verified 05/05/21 22:46 Vital Signs Vital Signs - 24 hr 05/05/21 16:31 05/05/21 18:27 05/05/21 18:30 Temperature 37.4 C Pulse Rate 118 H 120 H 119 H Respiratory Rate 16 15 13 Blood Pressure 126/79 147/80 H Pulse Oximetry 99 100 100 05/05/21 18:31 05/05/21 19:57 05/05/21 20:14 Temperature Pulse Rate 120 H 113 H 111 H Respiratory Rate 17 18 16 Blood Pressure 147/80 H 126/89 Pulse Oximetry 100 100 100 05/05/21 21:05 05/05/21 21:27 05/05/21 22:28
[2021-05-06 14:00] VITALS: BP 122/83; PULSE 112; RESP 18; TEMP 36.1; O2SAT 100
[2021-05-06] MEDS: FUROSEMIDE 40 MG TABLET PO (14:00)
[2021-05-06] MEDS: FOLIC ACID 1 MG TABLET PO (14:00)
[2021-05-06] MEDS: LACTULOSE 20 GM/30 ML UDC PO ×2 (14:01→21:30)
[2021-05-06] MEDS: SPIRONOLACTONE 50 MG TABLET 100 MG PO (14:01)
[2021-05-06] MEDS: THIAMINE HCL 100 MG TABLET PO (14:01)
[2021-05-06] MEDS: ONDANSETRON INJ 4 MG/2 ML VIAL IV PUSH (14:29)
--- NOTE | 2021-05-06 15:10 | WPDGICN ---
Assessment and Plan Assessment and plan (1) Decompensation of cirrhosis of liver: Code(s): K72.90 - Hepatic failure, unspecified without coma; K74.60 - Unspecified cirrhosis of liver Status: Acute Assessment and Plan: from previous alcohol abuse, he quit about 4 weeks ago he will need follow-up with explosive ordnance manager, we can refer as outpatient will complete work up to rule out other liver conditions but most likely related to alcohol (2) Ascites of liver: Code(s): R18.8 - Other ascites Status: Acute Assessment and Plan: he required need paracentesis, will give iv albumin 2g na diet, nutrition supplement will increase dose of diuretics most likely will need large volume paracentesis as outpatient- we can set up every 2 weeks as needed (3) Ball's esophagus with esophagitis: Code(s): K22.70 - Ball's esophagus without dysplasia; K20.90 - Esophagitis, unspecified without bleeding Status: Acute Assessment and Plan: he is on ppi, did not take bx last time because previous CT scan report of possible varices (4) Nausea: Code(s): R11.0 - Nausea Status: Acute Assessment and Plan: diet as tolerated (5) Anemia of chronic disease: Code(s): D63.8 - Anemia in other chronic diseases classified elsewhere Status: Acute Assessment and Plan: probably from cirrhosis, alcohol, etc (6) Abdominal pain: Qualifiers: Abdominal location: generalized Qualified Code(s): R10.84 - Generalized abdominal pain Code(s): R10.9 - Unspecified abdominal pain Status: Acute GI Consult Note Consult date/time: 05/06/21 15:10 HPI: Lukas Diaz is a 35 year old male familiar to me with recurrent hospitalization for decompensated alcoholic cirrhosis and ascites, he quit drinking more than 4 weeks ago after his first hospitalization. He is back again with increase abdominal girth, nausea with lower abdominal discomfort. He was on 100mg aldactone and 40mg lasix, he says that he is trying to stay away from salt. New therapeutic paracentesis with 5 liters removed and today is better, still some nausea. Recent EGD showed ball's with esophagitis, no varices and using protonix. He still has not seen a explosive ordnance manager. Review of Systems Constitutional: Constitutional: Reports weakness Eyes: Eyes: Denies blurry vision ENT: Reports Normal hearing present Cardiovascular: Cardiovascular: Denies chest pain Respiratory: Respiratory: Denies cough Gastrointestinal: Gastrointestinal: Reports abdominal pain, Reports bloating and Reports nausea Genitourinary: Genitourinary: Denies dysuria Musculoskeletal: Musculoskeletal: Denies neck pain Integumentary/Breasts: Skin/Breast: Denies dry skin Neurologic: Denies headache(s) Psychiatric: Psychiatric: Denies confusion [facility] Past Medical History Medical History (Updated 05/06/21 @ 15:20 by Eric Oconnell MD) Acute blood loss anemia Alcohol abuse Alcoholic hepatitis Ball's esophagus with esophagitis Constipation Decompensation of cirrhosis of liver Elevated liver enzymes Nausea Tobacco abuse Surgical History Surgical History No pertinent past surgical history Family History Family History Mother Liver disease Cirrhosis Grandparent Heart failure Heart attack Social History Social History Social History: The patient stated that he just quit smoking approximately 3 month ago. The patient had started smoking when he was 10 years old. The patient denies any alcohol Since his 1st admission or illicit drugs. The patient states that he drinks 6 pt of alcohol a day on the days that he drinks. He typically drinks 2-3 days a week. The patient is a full code. the patient would also like his father Rigo to
[2021-05-06] MEDS: ALBUMIN HUMAN 25% 25 GM/100 ML 200 ML IVPB (16:01)
[2021-05-06 20:59] VITALS: BP 105/61; PULSE 101; RESP 18; TEMP 36.2; O2SAT 97
[2021-05-06] MEDS: PANTOPRAZOLE 40 MG TABLET PO (21:31)
[2021-05-07 06:00] VITALS: BP 107/56; PULSE 80; RESP 18; TEMP 36.2; O2SAT 80
[2021-05-07 06:13] LABS: Basophils Absolute Auto 0.1 K/mm3 (0.0-0.1); Basophils Percent Auto 1.1 % (0.2-1.2); Eosinophils Absolute Auto 0.1 K/mm3 (0-0.3); Eosinophils Percent Auto 1.8 % (0-4.4); Hematocrit 29.6 % (42.0-52.0); Hemoglobin 9.5 g/dL (14.0-18.0); Immature Granulocyte Absolute 0.02 K/mm3 (0.00-0.031); Immature Granulocyte Percent A 0.3 % (0-0.5); Lymphocytes Absolute Auto 1.14 K/mm3 (0.9-3.2); Lymphocytes Percent Auto 18.7 % (18.3-44.2); Mean Corpuscular HGB Conc 32.1 g/dl (32-36); Mean Corpuscular Hemoglobin 35.1 pg (26-34); Mean Corpuscular Volume 109.2 fl (80-100); Mean Platelet Volume 8.6 fl (7.4-10.4); Neutrophils Absolute Auto 3.7 K/mm3 (1.3-6.7); Neutrophils Percent Auto 61.1 % (45.5-73.1); Platelet Count Result 276 k/mm3 (150-375); Red Blood Count 2.71 M/mm3 (4.6-6.20); Red Cell Distribution Width 14.2 % (11.5-14.5); White Blood Count 6.1 K/mm3 (4.5-10.0)
[2021-05-07 06:25] LABS: Alanine Aminotransferase 18 U/L (4-50); Albumin Level 3.1 g/dL (3.5-5.1); Alkaline Phosphatase 95 U/L (38-126); Anion Gap 5 mmol/L (8-16); Aspartate Amino Transferase 39 U/L (17-59); Bilirubin,Total 1.3 mg/dL (0.2-1.3); Blood Urea Nitrogen 6 mg/dL (9-20); Calcium 8.4 mg/dL (8.4-10.2); Carbon Dioxide 25 mmol/L (22-30); Chloride 106 mmol/L (98-107); Estimated CRCL calculation 159 ml/min; Estimated Glomerular Filt Rate > 60; Glucose 88 mg/dL (75-110); Magnesium 1.6 mg/dL (1.6-2.3); Potassium 3.6 mmol/L (3.4-5.0); Sodium 136 mmol/L (137-145)
[2021-05-07] MEDS: ONDANSETRON INJ 4 MG/2 ML VIAL IV PUSH ×2 (06:30→12:42)
[2021-05-07] MEDS: GABAPENTIN 100 MG CAPSULE PO ×2 (09:22→12:41)
[2021-05-07] MEDS: SPIRONOLACTONE 50 MG TABLET 150 MG PO (09:23)
[2021-05-07] MEDS: FUROSEMIDE 20 MG TABLET 60 MG PO (09:23)
[2021-05-07 10:38] LABS: Troponin I < 0.012 ng/mL (0.000-0.034)
[2021-05-07] MEDS: LIDOCAINE 5% PATCH 1 PATCH TRANSDERM (10:41)
[2021-05-07] MEDS: FOLIC ACID 1 MG TABLET PO (10:41)
[2021-05-07] MEDS: LACTULOSE 20 GM/30 ML UDC PO ×3 (10:41→17:04)
[2021-05-07] MEDS: PANTOPRAZOLE 40 MG TABLET PO ×2 (10:41→20:11)
[2021-05-07] MEDS: THIAMINE HCL 100 MG TABLET PO (10:41)
[2021-05-07 13:20] LABS: Troponin I < 0.012 ng/mL (0.000-0.034)
--- NOTE | 2021-05-07 13:54 | WPDGIPROGNO ---
Progress Note: A&P Assessment and Plan (1) Decompensation of cirrhosis of liver: Code(s): K72.90 - Hepatic failure, unspecified without coma; K74.60 - Unspecified cirrhosis of liver Status: Acute Assessment and Plan: nutrition support from previous alcohol use but other labs pending to rule out other chronic liver conditions he would like to stay another day, his father will get help tomorrow at home. will refer to strand and binder controller [place] since he has decompensated cirrhosis but in the meantime he can see us in office (2) Ascites: Code(s): R18.8 - Other ascites Status: Acute Assessment and Plan: we increased diuretics to 60mg lasix and 150mg aldactone, continue with 2g na diet. Renal function and lytes ok today. he has required frequent paracentesis therefore will set up paracentesis as outpatient by radiologist every 2-3 weeks (as needed) today he was dizzy, will give another dose of iv albumin and continue to monitor (3) Holt's esophagus with esophagitis: Code(s): K22.70 - Holt's esophagus without dysplasia; K20.90 - Esophagitis, unspecified without bleeding Status: Acute Assessment and Plan: on ppi (4) Alcohol abuse: Code(s): F10.10 - Alcohol abuse, uncomplicated Status: Chronic Assessment and Plan: quit about 4-5 weeks ago since first hospitalization (5) Alcoholic hepatitis: Code(s): K70.10 - Alcoholic hepatitis without ascites Status: Chronic Subjective Date/time seen: 05/07/21 13:54 Interval history: today he was feeling dizzy after using restroom and passed out, now he is doing better. Primary checked cardiac enzymes that are normal. Review of Systems Review of Systems: All systems reviewed & are unremarkable except as noted in HPI and below Exam Const: General: no acute distress and ill appearing chronically HENMT: General nose exam: Normal nares present Eyes: General: appearance normal, both eyes and all related structures Neck: Neck: supple Resp: Auscultation: clear to auscultation bilaterally Cardio: Rate: regular rate GI: Inspection: distended GI Palp: Yes Soft to palpation Percussion: Yes Fluid wave present Auscultation: normal bowel sounds Skin: General skin exam: normal color Neuro: Speech: normal speech Motor exam (neuro): Normal motor muscle tone present throughout Extrem: General: no edema Psych: Mental Status: mental status grossly normal Objective Data Vital Signs Vital Signs: Vital Signs - 24 hr 05/06/21 14:00 05/06/21 20:59 05/07/21 06:00 Temperature 97.0 F L 97.2 F L 97.2 F L Pulse Rate 112 H 101 H 80 Respiratory Rate 18 18 18 Blood Pressure 122/83 105/61 107/56 L Pulse Oximetry 100 97 80 L Intake/Output Intake/Output: Intake & Output 05/04/21 05/05/21 05/06/21 05/07/21 23:59 23:59 23:59 23:59 Intake Total 1330 360 Output Total 6250 600 Balance -4920 -240 Meds/Results Medications: Active Medications Generic Name Dose Route Start Last Admin Trade Name Freq PRN Reason Stop Dose Admin Folic Acid 1 mg 05/06/21 12:00 05/07/21 10:41 Folic Acid 1 Mg Tablet PO 1 mg DAILY LIDA Administration Furosemide 60 mg 05/07/21 09:00 05/07/21 09:23 Furosemide 20 Mg Tablet PO 60 mg DAILY LIDA Administration Gabapentin 100 mg 05/06/21 13:00 05/07/21 12:41 Gabapentin 100 Mg Capsule PO 100 mg TID LIDA Administration Albumin Human 200 mls @ 60 mls/hr 05/07/21 13:47 Albutein IVPB 05/07/21 17:06 ONCE ONE Lactulose 20 gm 05/06/21 12:30 05/07/21 12:41 Lactulose 20 Gm/30 Ml Udc PO 20 gm TIDPC LIDA Administration Lidocaine 1 patch 05/06/21 09:00 05/07/21 10:41 Lidocaine 5% Patch TRANSDERM 1 patch DAILY LIDA Administration Ondansetron HCl 4 mg 05/06/21 14:04 05/07/21 12:42 Ondansetron Inj 4 Mg/2 Ml Vial IV PUSH 4 mg Q6H PRN Administration Nausea And Vomiting Pantoprazole Sodium 40 mg 05/06/21 2
[2021-05-07 14:00] VITALS: BP 123/64; PULSE 96; RESP 14; TEMP 35.6; O2SAT 96
[2021-05-07] MEDS: ALBUMIN HUMAN 25% 25 GM/100 ML 200 ML IVPB (14:30)
--- NOTE | 2021-05-07 15:14 | P.PNIM_ITS ---
Progress Note: A&P Assessment and Plan (1) Abdominal ascites: Qualifiers: Ascites type: due to alcoholic cirrhosis Qualified Code(s): K70.31 - Alcoholic cirrhosis of liver with ascites Code(s): R18.8 - Other ascites Status: Acute Assessment and Plan: * abdomen is hard, taught, and distended * history of multiple paracentesis * patient had a paracentesis done today which they drained 5 L * GI consulted thank you for your recommendations * albumin 50 mL * continue furosemide 40 mg p.o. daily, and spironolactone 100 mg p.o. daily * low-sodium 800 mL fluid restriction should be implemented from last visit. * Monitor fluid status * trend labs * labs in a.m. * heart healthy diet * discharge planning also involves patient will follow-up with getting paracentesis is biweekly (2) Anemia of chronic disease: Code(s): D63.8 - Anemia in other chronic diseases classified elsewhere Status: Acute Assessment and Plan: * hemoglobin hematocrit stable at 9.5/29.6 * trend H&H * labs in a.m. * anemia panel shows iron 21, TIBC 194, saturation 11, vitamin B12 640, folate 13.2 * continue folic acid 1 mg p.o. daily and thiamine 100 mg p.o. daily (3) Alcoholic hepatitis: Code(s): K70.10 - Alcoholic hepatitis without ascites Status: Chronic Assessment and Plan: * last alcoholic beverage was April 10, 2021 * alcohol was 163 * liver enzymes AST 58 ALT 25 * lactulose 20 g p.o. t.i.d. for ammonia control * lipase elevated at 413 * avoid hepatic toxic medications * trend liver enzymes * labs in a.m. * education about cessation of alcohol including AA, wildlife removal specialist, and other programs available (4) Abdominal pain: Qualifiers: Abdominal location: generalized Qualified Code(s): R10.84 - Generalized abdominal pain Code(s): R10.9 - Unspecified abdominal pain Status: Acute Assessment and Plan: * from the ascites * trend pain score * pain lessened with therapeutic paracentesis * continue to monitor (5) Syncope: Code(s): R55 - Syncope and collapse Status: Acute Assessment and Plan: * patient is complaining of syncope and blackout * also stated that his left leg in the or giving out * he also stated that he has history of falling on his left knee * left knee x-ray pending * orthostatic blood pressures * educated patient about taking slow easy movements * also educated patient about bowel movements in ensuring that is not vagaling down. (6) Hypomagnesemia: Code(s): E83.42 - Hypomagnesemia Status: Acute Assessment and Plan: * magnesium was 1.6 today * replace with 2 g magnesium * trend the labs * labs in the a.m. (7) Lower extremity pain: Code(s): M79.606 - Pain in leg, unspecified Status: Acute Assessment and Plan: * patient complains of lower extremity cramping especially in the feet ankles * potassium is 3.6 today * will trend potassium * replace potassium as needed * will get Aspercreme for patient * educated patient on on alternative therapies for pain control Subjective Date/time seen: 05/07/21 15:00 Interval history: Brain is a 35-year-old male with a past medical history for hepatic cirrhosis and has been here for several admissions over the past month due to ascites Who p
--- NOTE | 2021-05-07 15:14 | PM.IMPN ---
Progress Note: A&P Assessment and Plan (1) Abdominal ascites: Qualifiers: Ascites type: due to alcoholic cirrhosis Qualified Code(s): K70.31 - Alcoholic cirrhosis of liver with ascites Code(s): R18.8 - Other ascites Status: Acute Assessment and Plan: abdomen is hard, taught, and distended history of multiple paracentesis patient had a paracentesis done today which they drained 5 L GI consulted thank you for your recommendations albumin 50 mL continue furosemide 40 mg p.o. daily, and spironolactone 100 mg p.o. daily low-sodium 800 mL fluid restriction should be implemented from last visit. Monitor fluid status trend labs labs in a.m. heart healthy diet discharge planning also involves patient will follow-up with getting paracentesis is biweekly (2) Anemia of chronic disease: Code(s): D63.8 - Anemia in other chronic diseases classified elsewhere Status: Acute Assessment and Plan: hemoglobin hematocrit stable at 9.5/29.6 trend H&H labs in a.m. anemia panel shows iron 21, TIBC 194, saturation 11, vitamin B12 640, folate 13.2 continue folic acid 1 mg p.o. daily and thiamine 100 mg p.o. daily (3) Alcoholic hepatitis: Code(s): K70.10 - Alcoholic hepatitis without ascites Status: Chronic Assessment and Plan: last alcoholic beverage was April 10, 2021 alcohol was 163 liver enzymes AST 58 ALT 25 lactulose 20 g p.o. t.i.d. for ammonia control lipase elevated at 413 avoid hepatic toxic medications trend liver enzymes labs in a.m. education about cessation of alcohol including AA, regional vice president life sales, and other programs available (4) Abdominal pain: Qualifiers: Abdominal location: generalized Qualified Code(s): R10.84 - Generalized abdominal pain Code(s): R10.9 - Unspecified abdominal pain Status: Acute Assessment and Plan: from the ascites trend pain score pain lessened with therapeutic paracentesis continue to monitor (5) Syncope: Code(s): R55 - Syncope and collapse Status: Acute Assessment and Plan: patient is complaining of syncope and blackout also stated that his left leg in the or giving out he also stated that he has history of falling on his left knee left knee x-ray pending orthostatic blood pressures educated patient about taking slow easy movements also educated patient about bowel movements in ensuring that is not vagaling down. (6) Hypomagnesemia: Code(s): E83.42 - Hypomagnesemia Status: Acute Assessment and Plan: magnesium was 1.6 today replace with 2 g magnesium trend the labs labs in the a.m. (7) Lower extremity pain: Code(s): M79.606 - Pain in leg, unspecified Status: Acute Assessment and Plan: patient complains of lower extremity cramping especially in the feet ankles potassium is 3.6 today will trend potassium replace potassium as needed will get Aspercreme for patient educated patient on on alternative therapies for pain control Subjective Date/time seen: 05/07/21 15:00 Interval history: Brain is a 35-year-old male with a past medical history for hepatic cirrhosis and has been here for several admissions over the past month due to ascites Who presented to the ED for evaluation of abdominal pain patient stated is only able to sit up right and was having a hard time was breathing, nausea, vomiting. Today he says that he is a little bit better however he is having moments where he says he feels like he is going to black out and lost his balance and Fell on his knee today. He also said that he is dizzy when he stands up and he feels like he is always buckling on that left leg. He also stated that he is nausea when he eats he was only able to eat have a solid and that the Zofran is helping him. patient is
[2021-05-07 16:00] VITALS: BP 123/64; PULSE 57; RESP 14; TEMP 35.6; O2SAT 96
[2021-05-07] MEDS: GABAPENTIN 100 MG CAPSULE 200 MG PO (17:03)
[2021-05-07] MEDS: MENTHOL 10% / METHYL SALICYLATE 15% 57 GM TUBE 1 APPLIC TOPICAL (17:03)
[2021-05-07] MEDS: MAGNESIUM SULF 2 GM/WATER 50ML 2 GM/50 ML BAG IVPB (17:03)
[2021-05-07 18:07] VITALS: BP 115/72
[2021-05-07 18:08] VITALS: BP 111/69; BP 113/73
[2021-05-07 21:49] VITALS: BP 115/53; PULSE 96; RESP 16; TEMP 36.2; O2SAT 97
[2021-05-08 05:25] VITALS: BP 107/67; PULSE 94; RESP 16; TEMP 36.2; O2SAT 100
[2021-05-08 06:14] LABS: Basophils Absolute Auto 0.1 K/mm3 (0.0-0.1); Basophils Percent Auto 1.1 % (0.2-1.2); Eosinophils Absolute Auto 0.2 K/mm3 (0-0.3); Eosinophils Percent Auto 3.5 % (0-4.4); Hematocrit 29.3 % (42.0-52.0); Hemoglobin 9.6 g/dL (14.0-18.0); Immature Granulocyte Absolute 0.01 K/mm3 (0.00-0.031); Immature Granulocyte Percent A 0.2 % (0-0.5); Lymphocytes Absolute Auto 1.34 K/mm3 (0.9-3.2); Lymphocytes Percent Auto 20.2 % (18.3-44.2); Mean Corpuscular HGB Conc 32.8 g/dl (32-36); Mean Corpuscular Volume 106.9 fl (80-100); Mean Platelet Volume 8.7 fl (7.4-10.4); Monocytes Absolute Auto 1.1 K/mm3 (0.1-0.6); Monocytes Percent Auto 15.9 % (2.6-8.5); Neutrophils Absolute Auto 3.9 K/mm3 (1.3-6.7); Neutrophils Percent Auto 59.1 % (45.5-73.1); Platelet Count Result 281 k/mm3 (150-375); Red Blood Count 2.74 M/mm3 (4.6-6.20); Red Cell Distribution Width 14.1 % (11.5-14.5); White Blood Count 6.7 K/mm3 (4.5-10.0)
[2021-05-08 06:29] LABS: Alanine Aminotransferase 18 U/L (4-50); Albumin Level 3.4 g/dL (3.5-5.1); Alkaline Phosphatase 96 U/L (38-126); Anion Gap 7 mmol/L (8-16); Aspartate Amino Transferase 34 U/L (17-59); Bilirubin,Total 0.7 mg/dL (0.2-1.3); Blood Urea Nitrogen 6 mg/dL (9-20); Carbon Dioxide 24 mmol/L (22-30); Chloride 105 mmol/L (98-107); Estimated CRCL calculation 135 ml/min; Estimated Glomerular Filt Rate > 60; Glucose 89 mg/dL (75-110); Magnesium 1.9 mg/dL (1.6-2.3); Potassium 3.9 mmol/L (3.4-5.0); Sodium 136 mmol/L (137-145)
--- NOTE | 2021-05-08 07:09 | PC.NURSE ---
Patient was witnessed by a student RN intentionally kneeling down by the bed and claiming he fell when the student asked if he needed assistance. Patient claims the fall happened by the bathroom, however, pt was never away from the bed as witnessed by student RN. clinical pharmacy manager notified and determined it is not a fall occurrence and does not require an incident report.
[2021-05-08] MEDS: LACTULOSE 20 GM/30 ML UDC PO ×2 (09:44→12:41)
[2021-05-08] MEDS: MENTHOL 10% / METHYL SALICYLATE 15% 57 GM TUBE 1 APPLIC TOPICAL (09:44)
[2021-05-08] MEDS: SPIRONOLACTONE 50 MG TABLET 150 MG PO (09:44)
[2021-05-08] MEDS: FUROSEMIDE 20 MG TABLET 60 MG PO (09:45)
[2021-05-08] MEDS: FOLIC ACID 1 MG TABLET PO (09:45)
[2021-05-08] MEDS: GABAPENTIN 100 MG CAPSULE 200 MG PO ×2 (09:45→12:41)
[2021-05-08] MEDS: PANTOPRAZOLE 40 MG TABLET PO (09:45)
[2021-05-08] MEDS: THIAMINE HCL 100 MG TABLET PO (09:45)
[2021-05-08] MEDS: LIDOCAINE 5% PATCH 1 PATCH TRANSDERM (09:46)
--- NOTE | 2021-05-08 10:07 | PC.NURSE ---
Patient has inconsistent details r/t claims of falling . Student RN and staff have now witnessed patient intentionally kneel and then state that he fell . Incidents have been fully witnessed, with no collaboration. RN followed up with patient and patient gives a different account with each encounter. Provider is aware.
[2021-05-08 11:50] VITALS: BP 115/66
[2021-05-08 11:52] VITALS: BP 117/75
[2021-05-08 11:55] VITALS: BP 109/67
--- NOTE | 2021-05-08 13:27 | WPDGIPROGNO ---
Progress Note: A&P Assessment and Plan (1) Decompensation of cirrhosis of liver: Code(s): K72.90 - Hepatic failure, unspecified without coma; K74.60 - Unspecified cirrhosis of liver Status: Acute Assessment and Plan: nutrition support from previous alcohol use but other labs pending to rule out other chronic liver conditions I increased his diuretics but last 2 days has been feeling dizzy even though renal function and lytes normal, I would decrease back down to original dose (40mg lasix and 100mg aldactone), he can go home and already set up for outpatient large volume paracentesis by interventional radiology every 2-3 weeks (patient to come whenever he feels to have more paracentesis) already sent a referral to lead engineer in [facility] since he has decompensated cirrhosis but in the meantime he can see us in office he can go home later today (2) Ascites: Code(s): R18.8 - Other ascites Status: Acute Assessment and Plan: he has required frequent paracentesis, outpatient paracentesis by radiologist every 2-3 weeks (as needed) he received iv albumin yesterday lower his diuretics because has been feeling dizzy 2g na diet liver enzymes normal today (3) Holt's esophagus with esophagitis: Code(s): K22.70 - Holt's esophagus without dysplasia; K20.90 - Esophagitis, unspecified without bleeding Status: Acute Assessment and Plan: on ppi (4) Alcohol abuse: Code(s): F10.10 - Alcohol abuse, uncomplicated Status: Chronic Assessment and Plan: quit about 4-5 weeks ago since first hospitalization (5) Alcoholic hepatitis: Code(s): K70.10 - Alcoholic hepatitis without ascites Status: Chronic Subjective Date/time seen: 05/08/21 13:27 Interval history: he is still feeling dizzy and also weak legs . He is trying to eat but not much of appetite. Review of Systems Review of Systems: All systems reviewed & are unremarkable except as noted in HPI and below Exam Const: General: no acute distress and ill appearing chronically HENMT: General nose exam: Normal nares present Eyes: General: appearance normal, both eyes and all related structures Neck: Neck: supple Resp: Auscultation: clear to auscultation bilaterally Cardio: Rate: regular rate GI: Inspection: distended GI Palp: Yes Soft to palpation and No Guarding due to palpation present (GI) Percussion: Yes Fluid wave present (improved after paracentesis) Auscultation: normal bowel sounds Skin: General skin exam: normal color Neuro: Speech: normal speech Motor exam (neuro): Normal motor muscle tone present throughout Extrem: General: no edema Psych: Mental Status: mental status grossly normal Objective Data Vital Signs Vital Signs: Vital Signs - 24 hr 05/07/21 14:00 05/07/21 16:00 05/07/21 18:07 Temperature 96.0 F L 96.0 F L Pulse Rate 96 57 L Respiratory Rate 14 14 Blood Pressure 123/64 123/64 115/72 Pulse Oximetry 96 96 05/07/21 18:08 05/07/21 21:49 05/08/21 05:25 Temperature 97.2 F L 97.1 F L Pulse Rate 96 94 Respiratory Rate 16 16 Blood Pressure 111/69 115/53 L 107/67 Pulse Oximetry 97 100 05/08/21 11:50 05/08/21 11:52 05/08/21 11:55 Temperature Pulse Rate Respiratory Rate Blood Pressure 115/66 117/75 109/67 Pulse Oximetry Intake/Output Intake/Output: Intake & Output 05/05/21 05/06/21 05/07/21 05/08/21 23:59 23:59 23:59 23:59 Intake Total 1330 800 830 Output Total 6250 800 700 Balance -4920 0 130 Meds/Results Medications: Active Medications Generic Name Dose Route Start Last Admin Trade Name Lena PRN Reason Stop Dose Admin Folic Acid 1 mg 05/06/21 12:00 05/08/21 09:45 Folic Acid 1 Mg Tablet PO 1 mg DAILY LIDA Administration Furosemide 60 mg 05/07/21 09:00 05/08/21 09:45 Furosemide 20 Mg Tablet PO 60 mg DAILY LIDA Administration Gabapentin 200 mg 05/07/21 17:00 05/08/21 12:41 Gabapentin
[2021-05-08 14:30] VITALS: BP 132/76; PULSE 94; RESP 18; TEMP 36.1; O2SAT 100
--- NOTE | 2021-05-08 15:01 | P.DS_ITS ---
DS: Admitting Diagnosis Admitting Diagnosis Admitting Diagnosis: . Therapeutic paracentesis DS: Discharge Diagnosis Discharge Diagnosis (1) Abdominal ascites: Qualifiers: Ascites type: due to alcoholic cirrhosis Qualified Code(s): K70.31 - Alcoholic cirrhosis of liver with ascites Code(s): R18.8 - Other ascites Status: Acute Assessment and Plan: * abdomen is hard, taught, and distended * history of multiple paracentesis * patient had a paracentesis done today which they drained 5 L * GI consulted thank you for your recommendations * albumin 50 mL * continue furosemide 40 mg p.o. daily, and spironolactone 100 mg p.o. daily * low-sodium 800 mL fluid restriction should be implemented from last visit. * Monitor fluid status * trend labs * labs in a.m. * heart healthy diet * discharge planning also involves patient will follow-up with getting paracentesis is biweekly patient was given particular instructions about further paracentesis p.r.n. and also follow-up with Dr. Cat social work is also provided the patient with resources for transportation, Medicaid, nutritional support. (2) Anemia of chronic disease: Code(s): D63.8 - Anemia in other chronic diseases classified elsewhere Status: Acute Assessment and Plan: * hemoglobin hematocrit stable at 9.5/29.6 * trend H&H * labs in a.m. * anemia panel shows iron 21, TIBC 194, saturation 11, vitamin B12 640, folate 13.2 * continue folic acid 1 mg p.o. daily and thiamine 100 mg p.o. daily (3) Alcoholic hepatitis: Code(s): K70.10 - Alcoholic hepatitis without ascites Status: Chronic Assessment and Plan: * last alcoholic beverage was April 10, 2021 * alcohol was 163 * liver enzymes AST 58 ALT 25 * lactulose 20 g p.o. t.i.d. for ammonia control * lipase elevated at 413 * avoid hepatic toxic medications * trend liver enzymes * labs in a.m. * education about cessation of alcohol including AA, beach lifeguard, and other programs available I educated patient about cessation of alcohol once again. I explained the patient that if he does not stop drinking that in the long goods drier he will pass away. (4) Abdominal pain: Qualifiers: Abdominal location: generalized Qualified Code(s): R10.84 - Generalized abdominal pain Code(s): R10.9 - Unspecified abdominal pain Status: Acute Assessment and Plan: * from the ascites * trend pain score * pain lessened with therapeutic paracentesis * continue to monitor (5) Syncope: Code(s): R55 - Syncope and collapse Status: Acute Assessment and Plan: * patient is complaining of syncope and blackout * also stated that his left leg in the or giving out * he also stated that he has history of falling on his left knee * left knee x-ray pending * orthostatic blood pressures * educated patient about taking slow easy movements * also educated patient about bowel movements in ensuring that is not vagaling down. (6) Hypomagnesemia: Code(s): E83.42 - Hypomagnesemia Status: Acute Assessment and Plan: * magnesium was 1.6 today * replace with 2 g magnesium * trend the labs * labs in the a.m. (7) Lower extremity pain: Code(s): M79.606 - Pain in leg, unspecified Status: Acute Assessment and Plan: * patient complains of low
--- NOTE | 2021-05-08 15:01 | PM.DS ---
DS: Admitting Diagnosis Admitting Diagnosis Admitting Diagnosis: . Therapeutic paracentesis DS: Discharge Diagnosis Discharge Diagnosis (1) Abdominal ascites: Qualifiers: Ascites type: due to alcoholic cirrhosis Qualified Code(s): K70.31 - Alcoholic cirrhosis of liver with ascites Code(s): R18.8 - Other ascites Status: Acute Assessment and Plan: abdomen is hard, taught, and distended history of multiple paracentesis patient had a paracentesis done today which they drained 5 L GI consulted thank you for your recommendations albumin 50 mL continue furosemide 40 mg p.o. daily, and spironolactone 100 mg p.o. daily low-sodium 800 mL fluid restriction should be implemented from last visit. Monitor fluid status trend labs labs in a.m. heart healthy diet discharge planning also involves patient will follow-up with getting paracentesis is biweekly patient was given particular instructions about further paracentesis p.r.n. and also follow-up with Dr. Cat social work is also provided the patient with resources for transportation, Medicaid, nutritional support. (2) Anemia of chronic disease: Code(s): D63.8 - Anemia in other chronic diseases classified elsewhere Status: Acute Assessment and Plan: hemoglobin hematocrit stable at 9.5/29.6 trend H&H labs in a.m. anemia panel shows iron 21, TIBC 194, saturation 11, vitamin B12 640, folate 13.2 continue folic acid 1 mg p.o. daily and thiamine 100 mg p.o. daily (3) Alcoholic hepatitis: Code(s): K70.10 - Alcoholic hepatitis without ascites Status: Chronic Assessment and Plan: last alcoholic beverage was April 10, 2021 alcohol was 163 liver enzymes AST 58 ALT 25 lactulose 20 g p.o. t.i.d. for ammonia control lipase elevated at 413 avoid hepatic toxic medications trend liver enzymes labs in a.m. education about cessation of alcohol including AA, life scientist, and other programs available I educated patient about cessation of alcohol once again. I explained the patient that if he does not stop drinking that in the half-way he will pass away. (4) Abdominal pain: Qualifiers: Abdominal location: generalized Qualified Code(s): R10.84 - Generalized abdominal pain Code(s): R10.9 - Unspecified abdominal pain Status: Acute Assessment and Plan: from the ascites trend pain score pain lessened with therapeutic paracentesis continue to monitor (5) Syncope: Code(s): R55 - Syncope and collapse Status: Acute Assessment and Plan: patient is complaining of syncope and blackout also stated that his left leg in the or giving out he also stated that he has history of falling on his left knee left knee x-ray pending orthostatic blood pressures educated patient about taking slow easy movements also educated patient about bowel movements in ensuring that is not vagaling down. (6) Hypomagnesemia: Code(s): E83.42 - Hypomagnesemia Status: Acute Assessment and Plan: magnesium was 1.6 today replace with 2 g magnesium trend the labs labs in the a.m. (7) Lower extremity pain: Code(s): M79.606 - Pain in leg, unspecified Status: Acute Assessment and Plan: patient complains of lower extremity cramping especially in the feet ankles potassium is 3.6 today will trend potassium replace potassium as needed will get Aspercreme for patient educated patient on on alternative therapies for pain control DS: Summary Hospital Course Hospital Course: Patient is a 35-year-old male with past medical history of alcohol abuse and liver cirrhosis who presented to the ED for complaints of abdominal pain. Since admission patient was treated with a therapeutic paracentesis. this paracentesis did remove 5 L of
[2021-05-11 14:47] LABS: Mitochondrial (M2) Ab (IgG) <=20.0 U (<=20.0)
[2021-05-11 15:25] LABS: Ceruloplasmin 18 mg/dL (18-36)
== END 2021-05-08 16:45 | disposition home or self-care (01) ==
LOC: ANHED 20:29 → ANH3MED 21:43
PROVIDERS: Emergency Medicine; Internal Medicine Gastroenterology; Nurse Practitioner; Admitting Provider Internal Medicine; Emergency Provider Emergency Medicine; PCP Emergency Medicine; Visit Provider Internal Medicine
DX: K70.31 Alcoholic cirrhosis of liver with ascites (principal); K72.90 Hepatic failure, unspecified without coma; K70.11 Alcoholic hepatitis with ascites; K22.70 Barrett's esophagus without dysplasia; K20.90 Esophagitis, unspecified without bleeding; R11.0 Nausea; R55 Syncope and collapse; E83.42 Hypomagnesemia; M79.606 Pain in leg, unspecified; D63.8 Anemia in other chronic diseases classified elsewhere; F10.10 Alcohol abuse, uncomplicated; Z87.891 Personal history of nicotine dependence; Z79.899 Other long term (current) drug therapy
CPT/HCPCS: 36415; 49083; 73560; 80053; 80307; 81001; 82104; 82390; 83520; 83690; 83735; 84484; 85025; 86038; 96365; 96366; 96375; 96376; 97161; 97165; 99285; A9270; G0378; G0379; J2405; J3475; P9047

== ENCOUNTER 2021-05-13 17:39 | Emergency (ER) | payer MEDICAID, SELFPAY ==
--- NOTE | ~2021-05-13 | CT_ITS ---
EXAMINATION: CT abdomen pelvis w con EXAM DATE: 05/13/2021 20:49 INDICATION: Pelvic pain. TECHNIQUE: Spiral CT of the abdomen and pelvis was performed following intravenous injection of 100 m L Omnipaque 350. Axial, coronal and sagittal images of the abdomen and pelvis were reviewed. The do se-length product (DLP) for this examination was 298.58 mGy-cm. The exposure was tailored according to patient size (auto mA exposure control), and iterative reconstruction (ASIR) was used as additiona l dose reduction technique. There is no prior study for comparison. FINDINGS: There is cirrhosis, regenerating nodules and small to moderate moderate ascites. Again ther e is low-density left liver lobe medial segmental liver lesion adjacent to the gallbladder fossa, reg ion measuring 4.1 x 2.3 cm, unchanged. Malignancy or hepatic abscess not excludable. Gallbladder is m oderately distended. Ascites decreases sensitivity for cholecystitis, but there are no calcified chol elithiasis. Portal and splenic veins are patent. Kidneys enhance symmetrically. There is no hydron ephrosis. The prostate is unremarkable. The bladder is unremarkable. There is no retroperitoneal or pelvic lymphadenopathy. There is distal esophageal edema, esophagitis. The appendix is normal. The stomach and small bowel a re unremarkable. There is expected amount of colonic stool. No free intraperitoneal gas. The hea rt is normal in size. There are no pericardial or pleural effusions. The lung bases are unremarkabl e. Bilateral gynecomastia. There are no osteoblastic or osteolytic lesions identified. IMPRESSION: 1. Cirrhosis, small to moderate ascites with improvement. 2. Indeterminate left liver lobe region, could be hepatic steatosis, malignancy or abscess. 3. Moderately distended gallbladder. 4. Esophagitis. Reviewed, dictated and finalized at location A. IMPRESSION: 1. Cirrhosis, small to moderate ascites with improvement. 2. Indeterminate left liver lobe region, could be hepatic steatosis, malignanc y or abscess. 3. Moderately distended gallbladder. 4. Esophagitis.
[2021-05-13 17:49] VITALS: BP 122/75; PULSE 113; RESP 14; TEMP 36.9; O2SAT 98
[2021-05-13 18:10] LABS: Basophils Absolute Auto 0.1 K/mm3 (0.0-0.1); Basophils Percent Auto 1.4 % (0.2-1.2); Eosinophils Absolute Auto 0.1 K/mm3 (0-0.3); Eosinophils Percent Auto 1.4 % (0-4.4); Hematocrit 32.7 % (42.0-52.0); Hemoglobin 10.7 g/dL (14.0-18.0); Immature Granulocyte Absolute 0.02 K/mm3 (0.00-0.031); Immature Granulocyte Percent A 0.3 % (0-0.5); Lymphocytes Absolute Auto 1.94 K/mm3 (0.9-3.2); Lymphocytes Percent Auto 25.4 % (18.3-44.2); Mean Corpuscular HGB Conc 32.7 g/dl (32-36); Mean Corpuscular Hemoglobin 34.5 pg (26-34); Mean Corpuscular Volume 105.5 fl (80-100); Mean Platelet Volume 8.1 fl (7.4-10.4); Monocytes Absolute Auto 0.6 K/mm3 (0.1-0.6); Monocytes Percent Auto 8.4 % (2.6-8.5); Neutrophils Absolute Auto 4.8 K/mm3 (1.3-6.7); Neutrophils Percent Auto 63.1 % (45.5-73.1); Platelet Count Result 247 k/mm3 (150-375); Red Cell Distribution Width 14.2 % (11.5-14.5); White Blood Count 7.6 K/mm3 (4.5-10.0)
[2021-05-13 18:20] LABS: Alanine Aminotransferase 27 U/L (4-50); Albumin Level 3.9 g/dL (3.5-5.1); Alkaline Phosphatase 129 U/L (38-126); Anion Gap 13 mmol/L (8-16); Aspartate Amino Transferase 62 U/L (17-59); Bilirubin,Total 0.6 mg/dL (0.2-1.3); Blood Urea Nitrogen 6 mg/dL (9-20); Calcium 8.7 mg/dL (8.4-10.2); Carbon Dioxide 22 mmol/L (22-30); Chloride 108 mmol/L (98-107); Estimated CRCL calculation 154 ml/min; Estimated Glomerular Filt Rate > 60; Glucose 111 mg/dL (65-110); Lipase 503 U/L (23-300); Potassium 3.8 mmol/L (3.4-5.0); Sodium 143 mmol/L (137-145)
[2021-05-13 18:31] LABS: Add Urine Microscopic? NO; Appearance Urine Clear (Clear); Bilirubin Urine Negative (Negative); Blood Urine Negative (Negative); Color Urine Yellow (Yellow); Glucose Urine UA Negative (Negative); Ketones Urine Negative (Negative); Leukocyte Esterase Ur Negative LEU/UL (Negative); Nitrate Urine Negative (Negative); Protein Urine Negative (Negative); Specific Grav Ur 1.008 (1.001-1.035); Urobilinogen Urine Negative mg/dL (<2.0)
[2021-05-13 20:11] VITALS: BP 120/79; PULSE 93; RESP 14; O2SAT 100
[2021-05-13 20:12] VITALS: BP 120/79; PULSE 96; RESP 14; O2SAT 98
[2021-05-13] MEDS: SODIUM CHLORIDE 0.9% IV 1,000 ML 150 ML IV CONT (21:18)
[2021-05-13] MEDS: PANTOPRAZOLE SODIUM IV 40 MG VIAL IV PUSH (21:18)
[2021-05-13 21:19] VITALS: BP 121/84; PULSE 105; RESP 98; O2SAT 14
[2021-05-13 22:07] VITALS: BP 113/87; PULSE 105; RESP 17; O2SAT 99
--- NOTE | 2021-05-13 22:43 | ED.ABDPAIN ---
HPI - Abdominal Pain General Chief Complaint: Abdominal Pain Stated Complaint: abd pain Time Seen by Provider: 05/13/21 20:09 Source: patient Mode of arrival: ambulatory Limitations: no limitations History of Present Illness HPI narrative: 35-year-old with a history of alcoholic cirrhosis here with complaints of abdominal pain started 1 day ago. He also states that he had some coffee-ground emesis earlier this morning. Patient states that he had alcohol 2 days ago. He states he has been taking Nexium at home. He denies being lightheaded or dizzy. He states that pain starts at the epigastric area and radiates in different directions. He denies any blood in the stool or black-colored stool. He states he has seen Dr. Cat who advised him not to drink alcohol however on the weekend he states that he had some drinks with his friends. MD elicited complaint: abdominal pain Pertinent past history: gastritis Onset (ago): day(s) (1) Location: epigastric Quality: aching Migration to: other (Diffuse) Exacerbating factors: nothing Relieving factors: nothing Related Data Home Medications Medication Instructions Recorded Confirmed furosemide 40 mg PO DAILY 04/20/21 05/05/21 thiamine HCl (vitamin B1) 100 mg PO DAILY 04/20/21 05/05/21 Allergies Allergy/AdvReac Type Severity Reaction Status Date / Time peanut Allergy Severe Anaphylaxis Verified 05/13/21 20:42 Review of Systems Review of Systems: All systems reviewed & are unremarkable except as noted in HPI and below Constitutional: Constitutional: Reports no additional constitutional complaints Eyes: Eyes: Reports no additional eye complaints Cardiovascular: Cardiovascular: Reports no additional cardiovascular complaints Respiratory: Respiratory: Reports no additional respiratory complaints Gastrointestinal: Gastrointestinal: Reports as per HPI Musculoskeletal: Musculoskeletal: Reports no additional musculoskeletal complaints Neurologic: Reports system reviewed and no additional complaints, except as documented PMF Past Medical History Medical History Acute blood loss anemia Alcohol abuse Alcoholic hepatitis Holt's esophagus with esophagitis Constipation Decompensation of cirrhosis of liver Elevated liver enzymes Nausea Tobacco abuse Surgical History Surgical History No pertinent past surgical history Family History Family History Mother Liver disease Cirrhosis Grandparent Heart failure Heart attack Social History Social History Social History: The patient stated that he just quit smoking approximately 3 month ago. The patient had started smoking when he was 10 years old. The patient denies any alcohol Since his 1st admission or illicit drugs. The patient states that he drinks 6 pt of alcohol a day on the days that he drinks. He typically drinks 2-3 days a week. The patient is a full code. the patient would also like his father Rigo to be his surrogate. Smoking packs per day: 0.5 Smoking cigarettes per day: 10.0 Years smoked: 18 Smoking pack-years: 9.00 Smoking status: Former smoker Tobacco type: cigarettes Smoking end date: 02/06/21 Alcohol intake: former Substance use: never Substance use type: does not use Other substance usage details: alcohol Last use: April 10 2021 Additional living arrangements comments: Patient that in [place] by himself with no pets Gender identity (if verbalized by the patient): Male Spiritual care concerns: No Exam Narrative: Exam Narrative: GENERAL: Well-appearing, well-nourished, and in no acute distress. HEAD: Normocephalic, atraumatic. EYES: PERRLA and EOMI. NECK: Supple. CHEST: Clear to auscultation. No respiratory distress. HEART: Regular rate
[2021-05-13 23:15] VITALS: BP 125/87; PULSE 98; RESP 17; O2SAT 100
== END 2021-05-13 23:18 | disposition home or self-care (01) ==
PROVIDERS: Emergency Medicine; Emergency Provider Family Medicine; PCP Emergency Medicine
DX: K70.31 Alcoholic cirrhosis of liver with ascites (principal); K29.20 Alcoholic gastritis without bleeding; K70.10 Alcoholic hepatitis without ascites; K22.70 Barrett's esophagus without dysplasia; K20.90 Esophagitis, unspecified without bleeding; Z87.891 Personal history of nicotine dependence; R93.2 Abnormal findings on diagnostic imaging of liver and biliary tract
CPT/HCPCS: 36415; 74177; 80053; 81003; 83690; 85025; 86850; 86900; 86901; 96361; 96374; 99284; C9113; J7030; Q9967

== ENCOUNTER 2021-05-14 22:35 | Emergency (ER) | payer MEDICAID, SELFPAY ==
--- NOTE | ~2021-05-14 | CT_ITS ---
EXAMINATION: CT abdomen pelvis w con DATE: 05/15/2021 00:28 INDICATION: Abdominal pain TECHNIQUE: Computed tomography (CT) of the abdomen and pelvis was performed with 100 mL Omnipaque-350 intravenous contrast. Automated exposure control and iterative reconstruction technique were employe d. The dose-length product was 323.11 mGy-cm. COMPARISON: 05/13/2021 FINDINGS: Lung bases are clear. Heart size is normal. No pericardial or pleural effusion. Bilateral gynecomasti a. Shrunken, nodular cirrhotic liver. Heterogeneous attenuation/enhancement of the liver likely combi [place] of heterogeneous hepatic steatosis and regenerative nodules which is without significant inter malvin change since 04/10/2021. There is a recanalized umbilical vein as well as gastroesophageal varices consistent with secondary portal venous hypertension. Moderate amount of ascites scattered throughou t the abdomen and pelvis. Gallbladder, pancreas, spleen, bilateral adrenal glands and kidneys are nor mal. Distended bladder is normal. Bowels including the appendix are normal. No free intraperitoneal g as. No pathologically enlarged abdominal or pelvic lymphadenopathy. Mild thoracolumbar dextrocurvatur e. IMPRESSION: 1. Stable appearance of a cirrhotic liver with heterogeneous hepatic steatosis and scattered likely r egenerative nodules. 2. Secondary portal venous hypertension with recanalized umbilical vein and gastroesophageal varices. 3. Moderate amount of ascites. Reviewed, dictated and finalized at location A. IMPRESSION: 1. Stable appearance of a cirrhotic liver with heterogeneous hepatic steatosis and scattered likely regenerative nodules. 2. Secondary portal venous hypertension with recanalized umbilical vein and gas troesophageal varices. 3. Moderate amount of ascites.
[2021-05-14 23:01] VITALS: BP 115/84; PULSE 100; RESP 19; TEMP 36.9; O2SAT 99
--- NOTE | 2021-05-14 23:22 | ED.GENADULT ---
HPI - General Adult General Chief complaint: Abdominal Pain Stated complaint: weakness Time Seen by Provider: 05/14/21 22:41 History of Present Illness HPI narrative: Patient is a 35-year-old gentleman who presents the emergency department with chief complaint of abdominal pain nausea and vomiting. Patient reports he is liver disease reports that tapped for ascites that was symptomatic patient reports that he has history of gastritis and drink a little bit of alcohol the other day. The patient states that now he has horrible epigastric discomfort reports that he has had some black stool and has had vomiting that has been slightly kinked:. Patient denies fever reports that his re dye hand is located at our facility patient does see a marine steam fitter in a different system as well. Patient reports that he has had no fevers no chills reports that his abdomen feels uncomfortable but is not as firm as it was when he was tapped the other day. Related Data Home Medications Medication Instructions Recorded Confirmed furosemide 40 mg PO DAILY 04/20/21 05/05/21 thiamine HCl (vitamin B1) 100 mg PO DAILY 04/20/21 05/05/21 Allergies Allergy/AdvReac Type Severity Reaction Status Date / Time peanut Allergy Severe Anaphylaxis Verified 05/13/21 20:42 Review of Systems Review of Systems: Narrative: A 10 system review of systems was completed on the patient and is negative except for what is stated in the HPI. Nursing and ancillary documentation was reviewed. [facility] Past Medical History Medical History Acute blood loss anemia Alcohol abuse Alcoholic hepatitis Holt's esophagus with esophagitis Constipation Decompensation of cirrhosis of liver Elevated liver enzymes Nausea Tobacco abuse Surgical History Surgical History No pertinent past surgical history Family History Family History Mother Liver disease Cirrhosis Grandparent Heart failure Heart attack Social History Social History Social History: The patient stated that he just quit smoking approximately 3 month ago. The patient had started smoking when he was 10 years old. The patient denies any alcohol Since his 1st admission or illicit drugs. The patient states that he drinks 6 pt of alcohol a day on the days that he drinks. He typically drinks 2-3 days a week. The patient is a full code. the patient would also like his father Rigo to be his surrogate. Smoking packs per day: 0.5 Smoking cigarettes per day: 10.0 Years smoked: 18 Smoking pack-years: 9.00 Smoking status: Former smoker Tobacco type: cigarettes Smoking end date: 02/06/21 Alcohol intake: former Substance use: never Substance use type: does not use Other substance usage details: alcohol Last use: April 10 2021 Additional living arrangements comments: Patient that in [place] by himself with no pets Gender identity (if verbalized by the patient): Male Spiritual care concerns: No Exam Narrative: Exam Narrative: GENERAL: Well-appearing, well-nourished, and in no acute distress. HEAD: Normocephalic, atraumatic. EYES: PERRLA and EOMI. ENT: Nares clear, no rhinorrhea or epistaxis. Mucous membranes moist. NECK: Supple. CHEST: Clear to auscultation. No respiratory distress. HEART: Regular rate and rhythm. No murmur heard. Normal peripheral pulses. ABDOMEN: Soft, nontender, nondistended, normal active bowel sounds. EXTREMITIES: Normal range of motion. No edema. SKIN: Warm, dry, no rash. NEURO: No focal deficits. Alert and oriented x3. PSYCH: Normal mood and affect. Course Vital Signs Vital signs: Vital Signs Temperature 36.9 C 05/14/21 23:01 Pulse Rate 100 05/14/21 23:01 Respiratory Rate 19 0
[2021-05-14 23:26] LABS: Basophils Absolute Auto 0.1 K/mm3 (0.0-0.1); Basophils Percent Auto 1.5 % (0.2-1.2); Eosinophils Absolute Auto 0.1 K/mm3 (0-0.3); Eosinophils Percent Auto 1.9 % (0-4.4); Hematocrit 31.4 % (42.0-52.0); Hemoglobin 10.4 g/dL (14.0-18.0); Immature Granulocyte Absolute 0.01 K/mm3 (0.00-0.031); Immature Granulocyte Percent A 0.2 % (0-0.5); Lymphocytes Absolute Auto 1.67 K/mm3 (0.9-3.2); Lymphocytes Percent Auto 25.8 % (18.3-44.2); Mean Corpuscular HGB Conc 33.1 g/dl (32-36); Mean Corpuscular Hemoglobin 34.9 pg (26-34); Mean Corpuscular Volume 105.4 fl (80-100); Mean Platelet Volume 8.5 fl (7.4-10.4); Monocytes Absolute Auto 0.9 K/mm3 (0.1-0.6); Monocytes Percent Auto 13.7 % (2.6-8.5); Neutrophils Absolute Auto 3.7 K/mm3 (1.3-6.7); Neutrophils Percent Auto 56.9 % (45.5-73.1); Platelet Count Result 226 k/mm3 (150-375); Red Blood Count 2.98 M/mm3 (4.6-6.20); Red Cell Distribution Width 14.3 % (11.5-14.5); White Blood Count 6.5 K/mm3 (4.5-10.0)
[2021-05-14 23:29] LABS: Add Urine Microscopic? NO; Appearance Urine Clear (Clear); Bilirubin Urine Negative (Negative); Blood Urine Negative (Negative); Color Urine Colorless (Yellow); Glucose Urine UA Negative (Negative); Ketones Urine Negative (Negative); Leukocyte Esterase Ur Negative LEU/UL (Negative); Nitrate Urine Negative (Negative); Protein Urine Negative (Negative); Urobilinogen Urine Negative mg/dL (<2.0)
[2021-05-14 23:33] LABS: Specific Grav Ur 1.002 (1.001-1.035)
[2021-05-14 23:38] LABS: Alanine Aminotransferase 27 U/L (4-50); Alkaline Phosphatase 145 U/L (38-126); Anion Gap 14 mmol/L (8-16); Aspartate Amino Transferase 63 U/L (17-59); Bilirubin,Total 0.9 mg/dL (0.2-1.3); Blood Urea Nitrogen 4 mg/dL (9-20); Calcium 9.1 mg/dL (8.4-10.2); Carbon Dioxide 23 mmol/L (22-30); Chloride 102 mmol/L (98-107); Estimated CRCL calculation 154 ml/min; Estimated Glomerular Filt Rate > 60; Glucose 92 mg/dL (65-110); INR 1.2; Lipase 471 U/L (23-300); Magnesium 1.9 mg/dL (1.6-2.3); Partial Thromboplastin Time 35.9 SECONDS (22.3-36.8); Potassium 3.7 mmol/L (3.4-5.0); Prothrombin Time 15.2 Seconds (11.1-14.7); Sodium 139 mmol/L (137-145)
[2021-05-14 23:39] LABS: Lactic Acid Reflex 3.7 mmol/L (0.7-2.1)
[2021-05-14] MEDS: PANTOPRAZOLE SODIUM IV 40 MG VIAL IV PUSH (23:44)
[2021-05-14] MEDS: SODIUM CHLORIDE 0.9% IV 1,000 ML 999 ML IV CONT (23:44)
[2021-05-14] MEDS: FAMOTIDINE 20 MG/2 ML VIAL IV PUSH (23:44)
[2021-05-15 00:10] VITALS: BP 115/84; PULSE 93; RESP 18; O2SAT 98
[2021-05-15 02:03] LABS: Ethanol 313 mg/dL (<10)
[2021-05-15 02:23] LABS: Reflex Lactic Acid Yes or No Add Lactic
--- NOTE | 2021-05-15 02:34 | PC.NURSE ---
updated pt. laboratory cureman at bedside drawing lactic acid. no other requests at this time. pt resting w/ call light in reach.
[2021-05-15 04:47] VITALS: BP 111/76; PULSE 86; RESP 18; O2SAT 97
[2021-05-15] MEDS: SODIUM CHLORIDE 0.9% IV 1,000 ML 999 ML IV CONT (04:48)
[2021-05-15 06:09] VITALS: BP 108/82; PULSE 87; RESP 15; O2SAT 100
--- NOTE | 2021-05-27 15:11 | PC.NURSE ---
LATE ENTRY This note is being entered to document information to the patient's record. The following information was omitted on [05/15/21], by [Chaparrita Childress RN]. NS stop time 0545, 1000ML infused
== END 2021-05-15 06:10 | disposition home or self-care (01) ==
PROVIDERS: Emergency Provider Emergency Medicine; PCP Emergency Medicine
DX: R10.84 Generalized abdominal pain (principal); F10.129 Alcohol abuse with intoxication, unspecified; K70.10 Alcoholic hepatitis without ascites; K22.70 Barrett's esophagus without dysplasia; K74.60 Unspecified cirrhosis of liver; Y90.8 Blood alcohol level of 240 mg/100 ml or more; Z87.891 Personal history of nicotine dependence
CPT/HCPCS: 36415; 74177; 80053; 80307; 81003; 83605; 83690; 83735; 85025; 85610; 85730; 96361; 96374; 96375; 99284; C9113; J7030; Q9967

== ENCOUNTER 2021-06-15 05:15 | Inpatient (IN) | payer MEDICAID, SELFPAY ==
[2021-06-15] VITALS (34 sets, daily range): BP systolic 107–149; BP diastolic 62–127; PULSE 11–184; RESP 14–36; TEMP 36.4–37.6; O2SAT 96–100; BMI 23.3
--- NOTE | ~2021-06-15 | US_ITS ---
EXAMINATION: US paracentesis abd w/image DATE: 06/21/2021 11:46 INDICATION: Ascites. TECHNIQUE: The procedure and its risks and benefits were discussed with the patient. Potential risks discussed included bleeding and infection. The skin was prepped and draped in sterile fashion. 1% lid ocaine was used for local anesthesia. Under ultrasound guidance, a 5 Fr catheter with trochar was adv anced into the ascites in the left lower quadrant. Fluid was aspirated into vacuum bottles. The kenya ter was removed, and a dressing was applied. There were no immediate complications. FINDINGS: Ultrasound images demonstrate ascites and the catheter within the fluid. IMPRESSION: 1. Successful ultrasound-guided paracentesis yielding 5000 mL of kailyn-colored fluid. Reviewed, dictated and finalized at location A.
--- NOTE | ~2021-06-15 | US_ITS ---
EXAMINATION: US paracentesis abd w/image DATE: 06/17/2021 12:54 INDICATION: Ascites. TECHNIQUE: The procedure and its risks, benefits, and alternatives were discussed with the patient. P otential risks discussed included bleeding and infection. The skin was prepped and draped in sterile fashion. 1% lidocaine was used for local anesthesia. Under ultrasound guidance, a 5 Fr catheter with trochar was advanced into the ascites in the left lower quadrant. Fluid was aspirated. The catheter w as removed, and a dressing was applied. There were no immediate complications. FINDINGS: Ultrasound images demonstrate ascites and the catheter within the fluid. IMPRESSION: 1. Successful ultrasound-guided paracentesis yielding 5000 mL of kailyn-colored fluid. Reviewed, dictated and finalized at location A.
--- NOTE | ~2021-06-15 | XR_ITS ---
XR abdomen NG/feed tube insert DATE: 06/15/2021 06:06 INDICATION: NG tube placement TECHNIQUE: Portable AP view on 06/15/2021 at 0601 hours COMPARISON: None FINDINGS: NG tube in body of stomach, the proximal port 6 cm distal to the diaphragmatic hiatus. Nonspecific bowel gas pattern. The lung bases appear clear. IMPRESSION: NG tube in body of stomach Reviewed, dictated and finalized at Location A. Reviewed, dictated and finalized at location A. IMPRESSION: NG tube in body of stomach
--- NOTE | ~2021-06-15 | XR_ITS ---
XR abdomen NG/feed tube rechec DATE: 06/15/2021 09:31 INDICATION: Check NG tube position TECHNIQUE: Portable AP view on 06/15/2021 at 0925 hours COMPARISON: 06/15/2021 KUB FINDINGS: A nasogastric tube is present in the lower body of the stomach, the proximal port 12 cm dis mary kate to the diaphragmatic hiatus. There are nondilated gas containing small bowel segments suggesting mild adynamic ileus. IMPRESSION: NG tube in lower body of stomach. Reviewed, dictated and finalized at Location A. Reviewed, dictated and finalized at location A.
--- NOTE | ~2021-06-15 | XR_ITS ---
EXAMINATION: XR chest 2V DATE: 06/22/2021 10:11 INDICATION: Pleural effusion and pulmonary infiltrate. TECHNIQUE: PA and lateral views of the chest were obtained. COMPARISON: Chest radiograph dated 05/03/[address] dated 04/10/2021 FINDINGS: Chronic mild linear discoid atelectasis/scarring at the lingula. Additional chronic thin-walled cavit zora lesion with mild associated scarring at the right apex. No new airspace opacities, pulmonary wiley a, pleural effusion or pneumothorax. The cardiomediastinal silhouette is normal. Mild thoracic spondy losis. IMPRESSION: 1. No acute cardiopulmonary disease. Reviewed, dictated and finalized at location A.
--- NOTE | ~2021-06-15 | XR_ITS ---
EXAMINATION: XR abdomen NG/feed tube insert EXAM DATE: 06/16/2021 06:16 INDICATION: New NG tube placed 16 Faroese. TECHNIQUE: Frontal projection(s) of the abdomen for interpretation. Comparison is made to prior exami nation from 06/15/2021. FINDINGS: Feeding tube tip and side-port project over left upper quadrant, expected location. Nonspe cific but nonobstructive bowel gas pattern. Another catheter overlying the pelvis, could be bladder c atheter. IMPRESSION: 1. Feeding tube in expected position. 2. Nonspecific bowel gas pattern. Reviewed, dictated and finalized at location A.
[2021-06-15] MEDS: ONDANSETRON INJ 4 MG/2 ML VIAL IV PUSH ×2 (05:31→10:39)
[2021-06-15] MEDS: SODIUM CHLORIDE 0.9% IV 1,000 ML 999 ML IV CONT ×2 (05:31→06:16)
[2021-06-15] MEDS: PANTOPRAZOLE SODIUM IV 40 MG VIAL 80 MG IV PUSH (05:32)
[2021-06-15 05:58] LABS: Basophils Percent Auto 0.3 % (0.2-1.2); Hematocrit 25.9 % (42.0-52.0); Hemoglobin 8.3 g/dL (14.0-18.0); Immature Granulocyte Absolute 0.04 K/mm3 (0.00-0.031); Immature Granulocyte Percent A 0.4 % (0-0.5); Lymphocytes Absolute Auto 0.51 K/mm3 (0.9-3.2); Lymphocytes Percent Auto 4.9 % (18.3-44.2); Mean Corpuscular Hemoglobin 32.7 pg (26-34); Mean Platelet Volume 9.9 fl (7.4-10.4); Monocytes Absolute Auto 1.8 K/mm3 (0.1-0.6); Monocytes Percent Auto 16.9 % (2.6-8.5); Neutrophils Absolute Auto 8.1 K/mm3 (1.3-6.7); Neutrophils Percent Auto 77.5 % (45.5-73.1); Platelet Count Result 112 k/mm3 (150-375); Red Blood Count 2.54 M/mm3 (4.6-6.20); Red Cell Distribution Width 18.2 % (11.5-14.5); White Blood Count 10.4 K/mm3 (4.5-10.0)
--- NOTE | 2021-06-15 05:59 | ED.GIBLEED ---
HPI - GI Bleed General Chief complaint: GI Bleed Stated complaint: GI bleed Time Seen by Provider: 06/15/21 05:16 History of Present Illness HPI Narrative: Patient is a 35-year-old male with history of cirrhosis who presents to the ER with coffee-ground emesis and dark black stools. Ongoing for 2 days. Feels weak and lightheaded. No fevers or chills or sweats. Denies using alcohol for 1 month. Recent scope in the last month by GI did not show esophageal varices. Patient has had no loss of consciousness. Related Data Home Medications Medication Instructions Recorded Confirmed furosemide 40 mg PO DAILY 04/20/21 05/05/21 thiamine HCl (vitamin B1) 100 mg PO DAILY 04/20/21 05/05/21 Allergies Allergy/AdvReac Type Severity Reaction Status Date / Time peanut Allergy Severe Anaphylaxis Verified 05/13/21 20:42 Review of Systems Review of Systems: All systems reviewed & are unremarkable except as noted in HPI and below Constitutional: Constitutional: Denies chills, Denies fever(s) and Reports weakness ENT: Denies nasal congestion and Denies sore throat Cardiovascular: Cardiovascular: Denies chest pain, Reports rapid heart rate and Denies radiating jaw, neck or arm pain Respiratory: Respiratory: Denies cough and Denies dyspnea Gastrointestinal: Gastrointestinal: Reports abdominal pain, Reports nausea and Reports vomiting Comments: Dark black stools. PMFSH Past Medical History Medical History Acute blood loss anemia Alcohol abuse Alcoholic hepatitis Holt's esophagus with esophagitis Constipation Decompensation of cirrhosis of liver Elevated liver enzymes Nausea Tobacco abuse Surgical History Surgical History No pertinent past surgical history Family History Family History Mother Liver disease Cirrhosis Grandparent Heart failure Heart attack Social History Social History Social History: The patient stated that he just quit smoking approximately 3 month ago. The patient had started smoking when he was 10 years old. The patient denies any alcohol Since his 1st admission or illicit drugs. The patient states that he drinks 6 pt of alcohol a day on the days that he drinks. He typically drinks 2-3 days a week. The patient is a full code. the patient would also like his father Rigo to be his surrogate. Smoking packs per day: 0.5 Smoking cigarettes per day: 10.0 Years smoked: 18 Smoking pack-years: 9.00 Smoking status: Former smoker Tobacco type: cigarettes Smoking end date: 02/06/21 Alcohol intake: former Substance use: never Substance use type: does not use Other substance usage details: alcohol Last use: April 10 2021 Additional living arrangements comments: Patient that in [place] by himself with no pets Gender identity (if verbalized by the patient): Male Spiritual care concerns: No Exam Narrative: GENERAL: Chronically ill-appearing, thin, and in mild distress. HEAD: Normocephalic, atraumatic. EYES: PERRL and EOMI. ENT: Mucous membranes moist. CHEST: Clear to auscultation. No respiratory distress. HEART: Tachycardic regular. Normal peripheral pulses. ABDOMEN: Soft, nontender, protuberant abdomen. EXTREMITIES: Normal range of motion. No edema. SKIN: Warm, dry, pale, no rash. NEURO: Alert and oriented x3. PSYCH: Normal mood and affect. Course Reevaluation(s) Reevaluation #1: Discussed with Dr. Oconnell. INR elevated. Request patient received 1 unit FFP. CBC and CMP still pending. Patient has NG with around 300 mL of coffee-ground material. Patient tolerating NG tube after receiving viscous lidocaine. Patient has been normotensive. He is on a IV Protonix drip. He is also received 1500 mL of
[2021-06-15 06:08] LABS: INR 2.4; Prothrombin Time 25.3 Seconds (11.1-14.7)
[2021-06-15 06:09] LABS: Ethanol < 10 mg/dL (<10); Partial Thromboplastin Time 44.9 SECONDS (22.3-36.8)
[2021-06-15] MEDS: SODIUM CHLORIDE 0.9% IV 250 ML 30 ML IV CONT ×3 (06:14→13:05)
[2021-06-15] MEDS: LIDOCAINE HCL 2% VISC SOLN 15 ML UDC PO (06:15)
[2021-06-15] MEDS: LORazepam INJ (*CRX) 2 MG/ML VIAL (06:16)
[2021-06-15] MEDS: PROMETHAZINE HCL 25 MG/ML AMPUL 12.5 MG IV PUSH (06:36)
[2021-06-15 06:39] LABS: Anisocytosis 2+ (NORMAL); Platelet Estimate Adequate (Adequate)
[2021-06-15 06:41] LABS: Target Cells 2+ (NORMAL)
[2021-06-15 06:48] LABS: Albumin Level 2.9 g/dL (3.5-5.1); Alkaline Phosphatase 196 U/L (38-126); Anion Gap 18 mmol/L (8-16); Aspartate Amino Transferase 208 U/L (17-59); Bilirubin,Total 5.8 mg/dL (0.2-1.3); Blood Urea Nitrogen 7 mg/dL (9-20); Calcium 8.2 mg/dL (8.4-10.2); Carbon Dioxide 15 mmol/L (22-30); Chloride 102 mmol/L (98-107); Estimated CRCL calculation 137 ml/min; Estimated Glomerular Filt Rate > 60; Glucose 166 mg/dL (65-110); Potassium 3.8 mmol/L (3.4-5.0); Sodium 135 mmol/L (137-145)
[2021-06-15 07:09] LABS: Alanine Aminotransferase 69 U/L (4-50)
--- NOTE | 2021-06-15 08:18 | PM.IMHP ---
H&P: HPI History of Present Illness Date/Time: 06/15/21 08:18 He is a 35-year-old male with past medical history of cirrhosis of liver secondary to alcohol abuse, alcohol abuse, Barrette esophagus with esophagitis and chronic anemia who came into the events of coffee-ground emesis and melena. Symptoms started 2 days ago. He had multiple episodes of vomiting with fresh as well as dark blood. He had few bowel movements which was melanotic but denied have any hematochezia. Is complaining of abdominal pain as well as distension. He denied have any chest pain or shortness of breath. He does feel lightheaded and fatigued. He was evaluated in the emergency department. He continued to have vomiting and NG tube was placed for with suctioning. 550 cc of dark coffee-ground aspirate were suctioned from NG tube. He continued to have vomiting at the time my evaluation. Currently he is being transfused with 1 unit of PRBC. He is receiving FFP as well with his INR being 2.4. He has abnormal LFTs with bilirubin of 5.8, elevated AST of 208. Platelet count is low which is 112. He has metabolic acidosis with bicarb of 15. He was recently admitted in mid April with abdominal pain and distension He had multiple paracentesis done and had a therapeutic purposes this is done during that admission as well. He gets paracentesis by weekly. He claimed to have any EGD did not show any evidence of esophageal varices. 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 He is not on a liver transplant list. He has ongoing alcohol abuse though he claims to be off alcohol for the last 1 month or so. Chief Complaint: Coffee-ground emesis and melena Review of Systems Review of Systems: A comprehensive review of systems has been reviewed with the patient and most of the symptoms are negative except the one's mentioned above in HPI. [facility] Past Medical History Medical History Acute blood loss anemia Alcohol abuse Alcoholic hepatitis Holt's esophagus with esophagitis Constipation Decompensation of cirrhosis of liver Elevated liver enzymes Nausea Tobacco abuse Surgical History Surgical History No pertinent past surgical history Family History Family History Mother Liver disease Cirrhosis Grandparent Heart failure Heart attack Social History Social History Social History: The patient stated that he just quit smoking approximately 3 month ago. The patient had started smoking when he was 10 years old. The patient denies any alcohol Since his 1st admission or illicit drugs. The patient states that he drinks 6 pt of alcohol a day on the days that he drinks. He typically drinks 2-3 days a week. The patient is a full code. the patient would also like his father Rigo to be his surrogate. Smoking packs per day: 0.5 Smoking cigarettes per day: 10.0 Years smoked: 18 Smoking pack-years: 9.00 Smoking status: Former smoker Tobacco type: cigarettes Smoking end date: 02/06/21 Alcohol intake: former Substance use: never Substance use type: does not use Other substance usage details: alcohol Last use: April 10 2021 Additional living arrangements comments: Patient that in [place] by himself with no pets Gender identity (if verbalized by the patient): Male Spiritual care concerns: No Meds Home Medications and Allergies Home Medications Medication Instructions Recorded Confirmed Type folic acid 1 mg PO DAILY #30 tablet 04/11/21 05/05/21 Rx pantoprazole 40 mg PO Q12HR #60 tablet 04/11/21 05/05/21 Rx furosemide 40 mg PO DAILY 04/20/21 05/05/21 History thiamine HCl (vitamin B1) 100 mg PO DAILY 04/20/21 05/05/21 History lactulose 20 g PO TID 30 Days #30 ml 05/02/21 05/05/21
--- NOTE | 2021-06-15 08:30 | PC.NURSE ---
PT PULLED OUT HIS NG TUBE. STATED IT WAS CHOKING HIM. NGT REINSERTED INTO NARE AND PT TOLERATED FAIR WITH ENCOURAGEMENT.
[2021-06-15] MEDS: TUBING, BLOOD PLUM PUMP TUBING 2 EACH XX (09:22)
--- NOTE | 2021-06-15 09:51 | ADMGEN ---
This patient, Lukas Diaz, was admitted to Intensive Care Unit-11. Patient/family oriented to hospital policies and general routines including ID bracelet, bed and alarms, visiting hours, pain management, procedures, bathroom and other care routines, personal items, smoking policy, room service/diet, and visiting hours. Information on how to activate the Rapid Response Team has been discussed. Patient/Family are encouraged to report perceived risks to care and to ask questions if they do not understand what they are told or what they should do.
[2021-06-15] MEDS: SODIUM CHLORIDE 0.9% IV 1,000 ML 100 ML IV CONT ×2 (10:30→20:48)
[2021-06-15] MEDS: PHYTONADIONE ADULT INJ 10 MG in DEXTROSE 5% IN WATER 50 ML 100 MG IVPB (10:37)
[2021-06-15 11:47] LABS: Hemoglobin 7.7 g/dL (14.0-18.0)
[2021-06-15] MEDS: LORazepam INJ (*CRX) 2 MG/ML VIAL 0.5 MG IV PUSH ×2 (11:56→20:49)
--- NOTE | 2021-06-15 11:56 | WPDCNINT ---
Assessment and Plan Assessment and plan (1) Acute upper GI bleeding: Code(s): K92.2 - Gastrointestinal hemorrhage, unspecified Status: Acute Assessment and Plan: Patient presented with hematemesis, melena -hemoglobin of 8.3 -GI has been consulted -continue Protonix and octreotide infusions -patient has received FFP, vitamin K -has been transfused 1 unit of packed RBCs and transfuse 1 more unit since his NG is draining bright to dark red blood, patient is severely tachycardic with metabolic acidosis Of note: patient was in the ICU on 04/10/2021 for similar issues, EGD was performed on 04/11/2021 which showed esophagitis, Holt's esophagus without dysplasia, hiatal hernia and gastritis (2) Metabolic acidosis: Code(s): E87.2 - Acidosis Status: Acute Assessment and Plan: Patient has been given 2 L IV fluid bolus, has received 1 unit of packed RBCs -will transfuse 1 more Unit of packed RBCs -continue maintenance IV fluids -recheck BMP after all blood products have been transfused Also check lactic acid (3) Ascites: Code(s): R18.8 - Other ascites Status: Acute Assessment and Plan: Patient has severe ascites, which she does receive therapeutic paracentesis. -will have a Interventional Radiology consulted for paracentesis (4) Alcohol abuse: Code(s): F10.10 - Alcohol abuse, uncomplicated Status: Chronic Assessment and Plan: History of alcohol abuse, patient states he quit about a month ago since his diagnosis of cirrhosis -continue CIWA protocol (5) Anemia: Code(s): D64.9 - Anemia, unspecified Status: Acute Assessment and Plan: Anemia likely related to post hemorrhagic anemia due to GI bleed -blood transfusion is needed, will obtain H&H q.6 hours -GI is following the patient (6) Decompensation of cirrhosis of liver: Code(s): K72.90 - Hepatic failure, unspecified without coma; K74.60 - Unspecified cirrhosis of liver Status: Acute Assessment and Plan: Elevated AST and hyperbilirubinemia with total bilirubin of 5.8 -be related to acute GI bleed and melena -will continue to monitor LFTs and bilirubin level (7) DVT prophylaxis: Code(s): Z29.9 - Encounter for prophylactic measures, unspecified Status: Acute Assessment and Plan: SCDs Additional Plan Discussed with patient updated with his condition and plan of care. We will give him a small dose of Ativan to relax him as he is anxious. He is aware that he will be getting a blood transfusion and GI will be evaluating him Code status: Full code Critical care time spent: 42 minutes This dictation may have been done utilizing a voice recognition system. Attempts have been made to correct errors. However, there may be uncorrected grammatical, spelling, and recognition errors present. Due to a high probability of clinically significant, life threatening deterioration, the patient required my highest level of preparedness to intervene emergently and I personally spent this critical care time directly and personally managing the patient. This critical care time included obtaining a history; examining the patient; pulse oximetry; ordering and review of studies; arranging urgent treatment with development of a management plan; evaluation of patient's response to treatment; frequent reassessment; and discussions with other providers. It was exclusive of separately billable procedures and treating other patients and teaching time. Please see Assessment and Plan section and the rest of the note for further information on patient assessment and treatment Weld Inspector Consult Note Consult date: 06/15/21 Time Seen: 09:54 Reason for consult: GI bleed, anemia, cirrhosis with ascites HPI: Lukas Diaz is a 35 year old male with past medical history of liver cirrhosis into alcohol abuse, Holt's esophagus with esophagitis, chronic anemia, ascites with multiple parace
[2021-06-15 12:11] LABS: Lactic Acid Reflex 8.1 mmol/L (0.7-2.1)
[2021-06-15 12:48] LABS: INR 2.5; Prothrombin Time 26.2 Seconds (11.1-14.7)
[2021-06-15] MEDS: PHENOL/SOD PHENO SPRAY CHERRY (*BKC) 1 SPRAY MUCOUS MEM (13:30)
[2021-06-15] MEDS: PROCHLORPERAZINE EDISYLATE 10 MG/2 ML VIAL IV PUSH (13:49)
[2021-06-15 14:43] LABS: Reflex Lactic Acid Yes or No Add Lactic
[2021-06-15 16:05] LABS: Hematocrit 25.9 % (42.0-52.0); Hemoglobin 8.5 g/dL (14.0-18.0)
[2021-06-15 16:15] LABS: Lactic Acid 4.5 mmol/L (0.7-2.1)
[2021-06-15 23:35] LABS: Hematocrit 20.5 % (42.0-52.0)
--- NOTE | 2021-06-15 23:39 | PC.NURSE ---
Dr. Maravillaly notified of Low H/H. Transfuse 1 PRBC.
[2021-06-16] VITALS (24 sets, daily range): BP systolic 98–121; BP diastolic 64–96; PULSE 96–122; RESP 15–24; TEMP 36.4–37.4; O2SAT 95–100; BMI 23.3
--- NOTE | 2021-06-16 04:24 | PC.NURSE ---
Patient pulled out NG tube. Replaced with 16 Czech to L nare. KUB ordered to check for placement. Patient unable to void. Bladder scanner showed > 700ml. Antoine catheter inserted 14 Czech as 16 was unable to be placed.
[2021-06-16 04:40] LABS: Basophils Absolute Auto 0.1 K/mm3 (0.0-0.1); Basophils Percent Auto 0.6 % (0.2-1.2); Eosinophils Percent Auto 0.4 % (0-4.4); Hematocrit 27.1 % (42.0-52.0); Immature Granulocyte Absolute 0.03 K/mm3 (0.00-0.031); Immature Granulocyte Percent A 0.4 % (0-0.5); Immature Platelet Fraction Pct 3.9 % (0.9-11.2); Lymphocytes Absolute Auto 1.01 K/mm3 (0.9-3.2); Lymphocytes Percent Auto 12.5 % (18.3-44.2); Mean Corpuscular HGB Conc 33.2 g/dl (32-36); Mean Corpuscular Hemoglobin 31.4 pg (26-34); Mean Corpuscular Volume 94.4 fl (80-100); Mean Platelet Volume 9.9 fl (7.4-10.4); Neutrophils Percent Auto 74.1 % (45.5-73.1); Platelet Count Result 87 k/mm3 (150-375); Red Blood Count 2.87 M/mm3 (4.6-6.20); Red Cell Distribution Width 18.6 % (11.5-14.5); White Blood Count 8.1 K/mm3 (4.5-10.0)
[2021-06-16 04:48] LABS: INR 1.8; Prothrombin Time 20.6 Seconds (11.1-14.7)
[2021-06-16 04:53] LABS: Alanine Aminotransferase 45 U/L (4-50); Albumin Level 2.5 g/dL (3.5-5.1); Alkaline Phosphatase 138 U/L (38-126); Anion Gap 6 mmol/L (8-16); Aspartate Amino Transferase 163 U/L (17-59); Bilirubin,Total 7.7 mg/dL (0.2-1.3); Blood Urea Nitrogen 10 mg/dL (9-20); Calcium 7.7 mg/dL (8.4-10.2); Carbon Dioxide 24 mmol/L (22-30); Chloride 106 mmol/L (98-107); Estimated CRCL calculation 159 ml/min; Estimated Glomerular Filt Rate > 60; Glucose 96 mg/dL (65-110); Magnesium 1.7 mg/dL (1.6-2.3); Phosphorus 1.8 mg/dL (2.5-4.5); Potassium 3.9 mmol/L (3.4-5.0); Sodium 136 mmol/L (137-145)
[2021-06-16 08:21] LABS: Hematocrit 25.5 % (42.0-52.0); Hemoglobin 8.6 g/dL (14.0-18.0)
[2021-06-16] MEDS: SODIUM PHOSPHATE 20 MM in DEXTROSE 5% IN WATER 250 ML 50 MM IVPB (08:28)
[2021-06-16] MEDS: CALCIUM GLUC 2,000 MG/NS 100ML 2,000 MG/100 ML BAG 100 MG IVPB (10:07)
--- NOTE | 2021-06-16 10:25 | WPDINTPN ---
Progress Note: A&P Assessment and Plan (1) Acute upper GI bleeding: Code(s): K92.2 - Gastrointestinal hemorrhage, unspecified Status: Acute Assessment and Plan: Patient presented with hematemesis, melena -hemoglobin of 8.3 which dropped to 7.7 -patient also coagulopathic with INR elevated -GI has been consulted and I anticipate patient will undergo EGD today -continue Protonix and octreotide infusions -patient has received 2u FFP, vitamin K -has been transfused 3 unit of packed RBCs -IV Rocephin for SBP prophylaxis -continue octreotide and Protonix infusion Off note: patient was in the ICU on 04/10/2021 for similar issues, EGD was performed on 04/11/2021 which showed esophagitis, Holt's esophagus without dysplasia, hiatal hernia and gastritis (2) Metabolic acidosis: Code(s): E87.2 - Acidosis Status: Acute Assessment and Plan: Patient has been given 2 L IV fluid bolus, has received packed RBCs Improved (3) Ascites: Code(s): R18.8 - Other ascites Status: Acute Assessment and Plan: Patient has severe ascites, which he does receive therapeutic paracentesis. -will have a Interventional Radiology consulted for paracentesis (4) Alcohol abuse: Code(s): F10.10 - Alcohol abuse, uncomplicated Status: Chronic Assessment and Plan: History of alcohol abuse, patient states he quit about a month ago since his diagnosis of cirrhosis Although patient claims to quit alcohol I am not sure if his history is reliable. Will continue to monitor for alcohol withdrawal symptoms (5) Anemia: Code(s): D64.9 - Anemia, unspecified Status: Acute Assessment and Plan: Anemia likely related to post hemorrhagic anemia due to GI bleed -blood transfusion is needed, will obtain H&H q.6 hours See above (6) Decompensation of cirrhosis of liver: Code(s): K72.90 - Hepatic failure, unspecified without coma; K74.60 - Unspecified cirrhosis of liver Status: Acute Assessment and Plan: Elevated AST and hyperbilirubinemia with total bilirubin of 5.8 -be related to acute GI bleed and melena -will continue to monitor LFTs and bilirubin level (7) DVT prophylaxis: Code(s): Z29.9 - Encounter for prophylactic measures, unspecified Status: Acute Assessment and Plan: SCDs (8) Electrolyte abnormality: Code(s): E87.8 - Other disorders of electrolyte and fluid balance, not elsewhere classified Status: Acute Assessment and Plan: Replace low phosphate Additional Plan Code status: Full code Critical care time spent: 30 minutes This dictation may have been done utilizing a voice recognition system. Attempts have been made to correct errors. However, there may be uncorrected grammatical, spelling, and recognition errors present. Due to a high probability of clinically significant, life threatening deterioration, the patient required my highest level of preparedness to intervene emergently and I personally spent this critical care time directly and personally managing the patient. This critical care time included obtaining a history; examining the patient; pulse oximetry; ordering and review of studies; arranging urgent treatment with development of a management plan; evaluation of patient's response to treatment; frequent reassessment; and discussions with other providers. It was exclusive of separately billable procedures and treating other patients and teaching time. Please see Assessment and Plan section and the rest of the note for further information on patient assessment and treatment Subjective Date/time seen: 06/16/21 Patient is drowsy this morning but easily arousable and denies any complaints. He still complains of nausea but no vomiting. Denies any abdominal pain. He pulled out his NG twice overnight and is now refusing. Patient denies fever, chest pain, shortness of breath, cough, , abdominal pain,, diarrhea,
--- NOTE | 2021-06-16 12:20 | WPDANESEPPF ---
Anes - Initial Pre Proc Eval Procedure: Operation Date: 06/16/21 16:00 Proposed Procedures p Esophagogastroduodenoscopy - Eric Oconnell MD Date/Time: 06/16/21 12:20 Surgeon: Manuel Dorsey MD Pre Op Diagnosis: Upper GI Bleed Patient Data Age: 35 Gender: M Height: 1.7 m Weight: 67.8 kg Last Vital Signs Temp 36.6 C 06/16/21 08:00 Pulse 107 H 06/16/21 10:00 Resp 17 06/16/21 10:00 BP 105/81 06/16/21 10:00 Pulse Ox 95 06/16/21 10:00 Allergies Allergy/AdvReac Type Severity Reaction Status Date / Time peanut Allergy Severe Anaphylaxis Verified 05/13/21 20:42 Home Medications Medication Instructions Recorded Confirmed Type folic acid 1 mg PO DAILY #30 tablet 04/11/21 06/15/21 Rx pantoprazole 40 mg PO Q12HR #60 tablet 04/11/21 06/15/21 Rx furosemide 40 mg PO DAILY 04/20/21 06/15/21 History thiamine HCl (vitamin B1) 100 mg PO DAILY 04/20/21 06/15/21 History lactulose 20 g PO TID 30 Days #30 ml 05/02/21 06/15/21 Rx spironolactone [Aldactone] 100 mg PO QAM #30 tablet 05/02/21 06/15/21 Rx gabapentin 200 mg PO TID 30 Days #180 cap 05/08/21 06/15/21 Rx ondansetron HCl [Zofran] 4 mg PO Q8H PRN #90 tablet 05/08/21 06/15/21 Rx Laboratory Tests 06/15/21 06/15/21 06/15/21 05:42 12:07 15:24 WBC RBC Hgb Hct MCV MCH MCHC RDW Plt Count MPV Immature Gran % (Auto) Neut % (Auto) Lymph % (Auto) Waller % (Auto) Eos % (Auto) Baso % (Auto) Lymph # (Auto) [place]er # (Auto) Eos # (Auto) Baso # (Auto) Abs Immat Gran (auto) Absolute Neuts (auto) Absolute Nucleated RBC Nucleated RBC % % Immature Plt Fraction PT 26.2 Seconds H Seconds (11.1-14.7) INR 2.5 Sodium Potassium Chloride Carbon Dioxide Anion Gap BUN Creatinine Estim Creat Clear Calc Estimated GFR Glucose Lactic Acid 4.5 mmol/L H* mmol/L (0.7-2.1) Calcium Phosphorus Magnesium Total Bilirubin AST ALT Alkaline Phosphatase Total Protein Albumin Blood Type B Positive Antibody Screen Negative Crossmatch See Detail 06/15/21 06/15/21 06/16/21 15:24 23:04 04:23 WBC 8.1 K/mm3 K/mm3 (4.5-10.0) RBC 2.87 M/mm3 L M/mm3 (4.6-6.20) Hgb 8.5 g/dL L g/dL 7.0 g/dL L g/dL 9.0 g/dL L g/dL (14.0-18.0) (14.0-18.0) (14.0-18.0) Hct 25.9 % L % 20.5 % L* % 27.1 % L % (42.0-52.0) (42.0-52.0) (42.0-52.0) MCV 94.4 fl D fl (80-100) MCH 31.4 pg pg (26-34) MCHC 33.2 g/dl g/dl (32-36) RDW 18.6 % H % (11.5-14.5) Plt Count 87 k/mm3 L k/mm3 (150-375) MPV 9.9 fl fl (7.4-10.4) Immature Gran % (Auto) 0.4 % % (0-0.5) Neut % (Auto) 74.1 % H % (45.5-73.1) Lymph % (Auto) 12.5 % L % (18.3-44.2) Waller % (Auto) 12.0 % H % (2.6-8.5) Eos % (Auto) 0.4 % % (0-4.4) Baso % (Auto) 0.6 % % (0.2-1.2) Lymph # (Auto) 1.01 K/mm3 K/mm3 (0.9-3.2) Waller # (Auto) 1.0 K/mm3 H K/mm3 (0.1-0.6) Eos # (Auto) 0.0 K/mm3 K/mm3 (0-0.3) Baso # (Auto) 0.1 K/mm3 K/mm3 (0.0-0.1) Abs Immat Gran (auto) 0.03 K/mm3 K/mm3 (0.00-0.031) Absolute Neuts (auto) 6.0 K/mm3 K/mm3 (1.3-6.7) Absolute Nucleated RBC 0.0 K/mm3 K/mm3 (0.0-0.012) Nucleated RBC % 0.0 % % (0.0-0.2) % Immature Plt Fraction 3.9 % % (0.9-11.2) PT
[2021-06-16] MEDS: LACTATED RINGERS 1,000 ML 150 ML IV CONT (13:00)
--- NOTE | 2021-06-16 13:09 | PC.NURSE ---
Patient to GI lab for EGD at 1250
--- NOTE | 2021-06-16 13:13 | WPDGICN ---
Assessment and Plan Assessment and plan (1) Melena: Code(s): K92.1 - Melena Status: Acute Assessment and Plan: patient in icu and s/p ffp, vit K and blood transfusion he was tachycardic and low bp yesterday but improved after medical treatment, NGT also was removed. will proceed with urgent EGD to assess source of bleeding (last time had ball's with esophagitis but not obvious bleeding) (2) Acute on chronic blood loss anemia: Code(s): D62 - Acute posthemorrhagic anemia Status: Acute Assessment and Plan: s/p blood transfusion on iv protonix and octreotide (no obvious varices last time in egd but CT scan in the past showed varices) (3) Acute upper GI bleeding: Code(s): K92.2 - Gastrointestinal hemorrhage, unspecified Status: Acute (4) Ascites of liver: Code(s): R18.8 - Other ascites Status: Acute Assessment and Plan: may need another paracentesis to assess if SBP will order one (5) Decompensation of cirrhosis of liver: Code(s): K72.90 - Hepatic failure, unspecified without coma; K74.60 - Unspecified cirrhosis of liver Status: Acute (6) Coagulopathy: Code(s): D68.9 - Coagulation defect, unspecified Status: Acute Assessment and Plan: from eoth use and cirrhosis s/p ffp and vit k repeat coags (7) Metabolic acidosis: Code(s): E87.2 - Acidosis Status: Acute (8) Ball's esophagus with esophagitis: Code(s): K22.70 - Ball's esophagus without dysplasia; K20.90 - Esophagitis, unspecified without bleeding Status: Acute Assessment and Plan: on ppi for now, could not obtain biopsies GI Consult Note Consult date/time: 06/16/21 13:13 Reason for consult: gib, melena, alcoholic cirrhosis HPI: Lukas Diaz is a 35 year old male with previous hospitalization with decompensated alcoholic cirrhosis that required paracentesis, also performed EGD 04/24/21 that showed Ball's with esophagitis (no bx because CT scan showed varices). He is back again familiar to me with recurrent hospitalization for decompensated alcoholic cirrhosis and ascites. He is here with 2 days of coffee-ground emesis and melena, also had some abdominal distension and abdominal pain. NGT was placed in the ER that showed coffee ground material with clots. Blood work showed alcoholic hepatitis with coagulopathy and worsening anemia. INR is 2.4 (given vitamin K and FFP), platelet count is 112, bicarb 15, AST 208, bilirubin 5.8. Started on iv protonix, iv antibiotic and octreotide. No more vomiting today. He is npo. He says that last drink about 1.5 week ago. Review of Systems Constitutional: Constitutional: Reports fatigue Eyes: Eyes: Denies blurry vision ENT: Reports Normal hearing present Cardiovascular: Cardiovascular: Denies chest pain Respiratory: Respiratory: Denies cough Gastrointestinal: Gastrointestinal: Reports melena, Reports nausea, Reports vomiting and Reports hematemesis Genitourinary: Genitourinary: Denies dysuria Musculoskeletal: Musculoskeletal: Denies neck pain Integumentary/Breasts: Skin/Breast: Denies dry skin Neurologic: Denies confusion Psychiatric: Psychiatric: Reports anxiety [facility] Past Medical History Medical History (Updated 06/16/21 @ 15:53 by Eric Oconnell MD) Acute blood loss anemia Acute on chronic blood loss anemia Alcohol abuse Alcoholic hepatitis Ball's esophagus with esophagitis Coagulopathy Constipation Decompensation of cirrhosis of liver Elevated liver enzymes Melena Nausea Tobacco abuse Surgical History Surgical History No pertinent past surgical history Family History Family History Mother Liver disease Cirrhosis Grandparent Heart failure Heart attack Social History Social History (Reviewed 05/14/21 @ 23:23 by
--- NOTE | 2021-06-16 14:29 | PC.NURSE ---
Pt returned from GI Lab
[2021-06-17] VITALS (13 sets, daily range): BP systolic 95–132; BP diastolic 69–88; PULSE 95–117; RESP 16–22; TEMP 36.3–37; O2SAT 95–98
[2021-06-17] MEDS: PANTOPRAZOLE SODIUM IV 40 MG VIAL IV PUSH ×3 (01:21→20:54)
[2021-06-17 05:21] LABS: Hematocrit 27.5 % (42.0-52.0); Hemoglobin 9.2 g/dL (14.0-18.0); Immature Platelet Fraction Pct 4.6 % (0.9-11.2); Mean Corpuscular HGB Conc 33.5 g/dl (32-36); Mean Corpuscular Hemoglobin 31.6 pg (26-34); Mean Corpuscular Volume 94.5 fl (80-100); Mean Platelet Volume 10.6 fl (7.4-10.4); Platelet Count Result 88 k/mm3 (150-375); Red Blood Count 2.91 M/mm3 (4.6-6.20); Red Cell Distribution Width 19.4 % (11.5-14.5); White Blood Count 6.1 K/mm3 (4.5-10.0)
[2021-06-17 05:33] LABS: Alanine Aminotransferase 46 U/L (4-50); Albumin Level 2.5 g/dL (3.5-5.1); Alkaline Phosphatase 139 U/L (38-126); Anion Gap 7 mmol/L (8-16); Aspartate Amino Transferase 149 U/L (17-59); Bilirubin,Total 6.2 mg/dL (0.2-1.3); Blood Urea Nitrogen 10 mg/dL (9-20); Calcium 7.8 mg/dL (8.4-10.2); Carbon Dioxide 24 mmol/L (22-30); Chloride 106 mmol/L (98-107); Estimated CRCL calculation 159 ml/min; Estimated Glomerular Filt Rate > 60; Glucose 83 mg/dL (65-110); Magnesium 1.7 mg/dL (1.6-2.3); Potassium 3.5 mmol/L (3.4-5.0); Sodium 137 mmol/L (137-145)
[2021-06-17 08:32] LABS: Hematocrit 25.8 % (42.0-52.0); Hemoglobin 8.8 g/dL (14.0-18.0)
--- NOTE | 2021-06-17 10:18 | PM.IMPN ---
Progress Note: A&P Assessment and Plan (1) Acute upper GI bleeding: Code(s): K92.2 - Gastrointestinal hemorrhage, unspecified Status: Acute Assessment and Plan: Patient presented with hematemesis, melena -hemoglobin of 8.3 which dropped to 7.7 -patient also coagulopathic with INR elevated -he was started on Protonix and octreotide infusions -patient has received 2u FFP, vitamin K, transfused 3 unit of packed RBCs -IV Rocephin for SBP prophylaxis - 06/16 underwent EGD which showed reflux esophagitis, nonbleeding esophageal varices, gastritis, Holt's esophagus with dysplasia -per GI recommendations octreotide infusion will be continued for 72 hours -PPI IV q.12 hours -hemoglobin has been stable. Will monitor q.12 hours (2) Abdominal pain: Code(s): R10.9 - Unspecified abdominal pain Status: Acute Assessment and Plan: Likely secondary to ascites versus SBP His white count is normal and he is afebrile He is on IV Rocephin Paracentesis ordered for today (3) Ascites: Code(s): R18.8 - Other ascites Status: Acute Assessment and Plan: Patient has severe ascites, which he does receive therapeutic paracentesis. Interventional Radiology consulted for paracentesis (4) Alcohol abuse: Code(s): F10.10 - Alcohol abuse, uncomplicated Status: Chronic Assessment and Plan: History of alcohol abuse, patient states he quit about a month ago since his diagnosis of cirrhosis Although patient claims to quit alcohol I am not sure if his history is reliable. Will continue to monitor for alcohol withdrawal symptoms (5) Anemia: Code(s): D64.9 - Anemia, unspecified Status: Acute Assessment and Plan: Anemia likely related to post hemorrhagic anemia due to GI bleed -blood transfusion is needed, will obtain H&H q.12 hours See above (6) Decompensation of cirrhosis of liver: Code(s): K72.90 - Hepatic failure, unspecified without coma; K74.60 - Unspecified cirrhosis of liver Status: Acute Assessment and Plan: Elevated AST and hyperbilirubinemia -be related to acute GI bleed and melena -will continue to monitor LFTs and bilirubin level (7) DVT prophylaxis: Code(s): Z29.9 - Encounter for prophylactic measures, unspecified Status: Acute Assessment and Plan: SCDs (8) Electrolyte abnormality: Code(s): E87.8 - Other disorders of electrolyte and fluid balance, not elsewhere classified Status: Acute Assessment and Plan: Phosphate level has normalized after replacement Additional Plan Code status: Full code Subjective Date/time seen: 06/17/21 10:18 He complains of abdominal distention and pain. Pain is 8/10. Nausea but no vomiting. Denies any vomiting of blood a bloody bowel movement overnight Patient denies fever, chest pain, shortness of breath, cough, diarrhea, headache or constipation. Other systems were reviewed and were negative He had EGD yesterday Review of Systems Review of Systems: All systems reviewed & are unremarkable except as noted in HPI and below Exam Const: General: comfortable and no acute distress HENMT: Mouth: Yes moist mucous membranes Eyes: Sclera: scleral abnormality (Icteric) Pupils: Equal, round and reactive pupils present Neck: Neck: supple Thyroid: thyroid normal Lymphatic: lymphadenopathy not noted Resp: Effort & Inspection: normal respiratory effort Auscultation: clear to auscultation bilaterally Cardio: Rate: regular rate and tachycardic GI: Inspection: distended Percussion: Yes Fluid wave present Auscultation: abnormal bowel sounds (Hypoactive bowel sounds) Other: Abdomen is distended, mild diffuse tenderness to palpation : Other: Deferred Skin: Other: Jaundiced Neuro: Cranial nerves: Yes Equal, round and reactive pupils present Other: Patient is awake, alert, oriented, follows commands in all extremities and answers to questions Extrem:
--- NOTE | 2021-06-17 10:23 | WPDANESPN ---
Anes - Prog Note Post-Op Date/Time: 06/17/21 10:23 Cardiovascular status: normal Respiratory status: normal Airway patency: baseline Mental status: baseline Post-Op hydration status: normal Vital Signs: Last Vital Signs Temp 36.3 C L 06/17/21 04:00 Pulse 116 H 06/17/21 10:00 Resp 22 H 06/17/21 04:00 BP 123/88 06/17/21 04:00 Pulse Ox 98 06/17/21 04:00 Pain Score (VAS): 1 I/O: Intake & Output 06/16/21 06/17/21 06/17/21 23:59 07:59 15:59 Intake Total 100.0 150 100 Output Total 150 150 Balance -50.0 0 100 Laboratory Tests 06/17/21 08:19 06/17/21 04:48 06/17/21 06/17/21 06/17/21 04:48 04:48 08:19 WBC 6.1 RBC 2.91 L Hgb 9.2 L 8.8 L Hct 27.5 L 25.8 L MCV 94.5 MCH 31.6 MCHC 33.5 RDW 19.4 H Plt Count 88 L MPV 10.6 H % Immature Plt Fraction 4.6 Sodium 137 Potassium 3.5 Chloride 106 Carbon Dioxide 24 Anion Gap 7 L BUN 10 Creatinine 0.50 L Estim Creat Clear Calc 159 Estimated GFR > 60 Glucose 83 Calcium 7.8 L Phosphorus 3.0 Magnesium 1.7 Total Bilirubin 6.2 H AST 149 H ALT 46 Alkaline Phosphatase 139 H Total Protein 7.0 Albumin 2.5 L Microbiology 06/15/21 11:21 Blood Blood Culture - Preliminary Post-procedural complaints: none Patient Feedback: Patient satisfied with anesthetic care.
[2021-06-17 14:49] LABS: Appearance Peritoneal Fluid Clear (Clear); Color Peritoneal Fluid Yellow (Colorless); Source Peritoneal Fluid Peritoneal Fluid
[2021-06-17 14:53] LABS: Lymphocytes Peritoneal Fluid 21 %; Macrophages Peritoneal Fluid 69 %; Neutrophils Peritoneal Fluid 10 % (0-25)
[2021-06-17 14:57] LABS: Nucleated Cells Peritoneal Flu 400 /uL (0-500); RBC Peritoneal Fluid 1250 /uL (0-100000)
[2021-06-17] MEDS: ONDANSETRON INJ 4 MG/2 ML VIAL IV PUSH (15:46)
[2021-06-17] MEDS: LORazepam INJ (*CRX) 2 MG/ML VIAL 0.5 MG IV PUSH (15:46)
[2021-06-17 16:09] LABS: Hematocrit 26.3 % (42.0-52.0); Hemoglobin 8.8 g/dL (14.0-18.0); Mean Corpuscular HGB Conc 33.5 g/dl (32-36); Mean Corpuscular Volume 95.6 fl (80-100); Mean Platelet Volume 9.8 fl (7.4-10.4); Platelet Count Result 88 k/mm3 (150-375); Red Blood Count 2.75 M/mm3 (4.6-6.20); Red Cell Distribution Width 19.7 % (11.5-14.5); White Blood Count 6.8 K/mm3 (4.5-10.0)
--- NOTE | 2021-06-17 17:01 | WPDGIPROGNO ---
Progress Note: A&P Assessment and Plan (1) Esophageal varices with bleeding: Code(s): I85.01 - Esophageal varices with bleeding Status: Acute Assessment and Plan: no more bleeding, continue with iv octreotide and protonix monitor h/h ok to advance diet (2) Acute on chronic blood loss anemia: Code(s): D62 - Acute posthemorrhagic anemia Status: Acute Assessment and Plan: stable after blood transfusion (3) Acute upper GI bleeding: Code(s): K92.2 - Gastrointestinal hemorrhage, unspecified Status: Acute (4) Coagulopathy: Code(s): D68.9 - Coagulation defect, unspecified Status: Acute (5) Holt's esophagus with esophagitis: Code(s): K22.70 - Holt's esophagus without dysplasia; K20.90 - Esophagitis, unspecified without bleeding Status: Acute Assessment and Plan: continue with iv protonix (6) Decompensation of cirrhosis of liver: Code(s): K72.90 - Hepatic failure, unspecified without coma; K74.60 - Unspecified cirrhosis of liver Status: Acute (7) Abdominal ascites: Qualifiers: Ascites type: due to alcoholic cirrhosis Qualified Code(s): K70.31 - Alcoholic cirrhosis of liver with ascites Code(s): R18.8 - Other ascites Status: Acute Assessment and Plan: no obvious SBP but still on antibiotics given acute gib (8) Alcoholic hepatitis: Code(s): K70.10 - Alcoholic hepatitis without ascites Status: Chronic Assessment and Plan: thiamine, mvi, nutrition support Subjective Date/time seen: 06/17/21 17:01 Interval history: had 5 liters removed today and received albumin, some nausea but overall better, no more bleeding Review of Systems Review of Systems: All systems reviewed & are unremarkable except as noted in HPI and below Exam Const: General: no acute distress and ill appearing chronically HENMT: General nose exam: Normal nares present Eyes: Other: icteric sclerae Neck: Neck: supple Resp: Auscultation: clear to auscultation bilaterally Cardio: Rate: regular rate GI: GI Palp: Yes Soft to palpation and Yes Tenderness to palpation present (GI) (mild ttp, no rebound) Percussion: Yes Fluid wave present Auscultation: normal bowel sounds Skin: Other: icteric Neuro: Speech: normal speech Extrem: General: normal to inspection Psych: Mental Status: mental status grossly normal Objective Data Vital Signs Vital Signs: Vital Signs - 24 hr 06/16/21 18:00 06/16/21 20:00 06/16/21 22:00 Temperature 97.6 F Pulse Rate 106 H 104 H 104 H Respiratory Rate 17 Blood Pressure 119/81 Pulse Oximetry 99 06/16/21 23:47 06/16/21 23:49 06/16/21 23:52 Temperature 98.2 F Pulse Rate 104 H 104 H 105 H Respiratory Rate 17 16 Blood Pressure 110/73 Pulse Oximetry 99 95 06/17/21 02:00 06/17/21 04:00 06/17/21 06:00 Temperature 97.3 F L Pulse Rate 105 H 112 H 112 H Respiratory Rate 22 H Blood Pressure 123/88 Pulse Oximetry 98 06/17/21 08:00 06/17/21 10:00 06/17/21 10:28 Temperature Pulse Rate 117 H 116 H Respiratory Rate 20 Blood Pressure 132/82 Pulse Oximetry 97 06/17/21 12:00 06/17/21 14:00 06/17/21 16:00 Temperature 98.6 F Pulse Rate 108 H 116 H 116 H Respiratory Rate 20 Blood Pressure 126/88 122/79 Pulse Oximetry 98 Intake/Output Intake/Output: Intake & Output 06/14/21 06/15/21 06/16/21 06/17/21 23:59 23:59 23:59 23:59 Intake Total 4968 2450.0 250 Output Total 1600 1575 5150 Balance 3368 875.0 -4900 Meds/Results Medications: Active Medications Generic Name Dose Route Start Last Admin Trade Name Parthq PRN Reason Stop Dose Admin Ceftriaxone Sodium 2 gm in 100 mls @ 200 mls/hr 06/15/21 09:00 06/17/21 08:18 Rocephin 2 Gm/D5w 100 Ml IVPB Infused Q24H LIDA Infusion Octreotide Acetate 500 mcg/ 100 mls @ 10 mls/hr 06/15/21 09:00 06/17/21 07:49 Dextrose IV CONT 06/18/21 09:01
[2021-06-17] MEDS: ALBUMIN HUMAN 25% 25 GM/100 ML 100 ML IVPB ×2 (18:07→23:27)
[2021-06-18] VITALS (12 sets, daily range): BP systolic 99–117; BP diastolic 75–86; PULSE 91–115; RESP 15–29; TEMP 36.1–36.6; O2SAT 95–100
[2021-06-18] MEDS: LORazepam INJ (*CRX) 2 MG/ML VIAL 0.5 MG IV PUSH ×2 (03:10→17:30)
[2021-06-18 04:44] LABS: Hematocrit 23.8 % (42.0-52.0); Hemoglobin 7.8 g/dL (14.0-18.0); Mean Corpuscular HGB Conc 32.8 g/dl (32-36); Mean Corpuscular Hemoglobin 30.7 pg (26-34); Mean Corpuscular Volume 93.7 fl (80-100); Platelet Count Result 96 k/mm3 (150-375); Red Blood Count 2.54 M/mm3 (4.6-6.20); Red Cell Distribution Width 19.1 % (11.5-14.5); White Blood Count 5.4 K/mm3 (4.5-10.0)
[2021-06-18 04:57] LABS: Alanine Aminotransferase 37 U/L (4-50); Albumin Level 2.5 g/dL (3.5-5.1); Alkaline Phosphatase 102 U/L (38-126); Anion Gap 2 mmol/L (8-16); Aspartate Amino Transferase 108 U/L (17-59); Bilirubin,Total 4.8 mg/dL (0.2-1.3); Blood Urea Nitrogen 6 mg/dL (9-20); Calcium 7.6 mg/dL (8.4-10.2); Carbon Dioxide 28 mmol/L (22-30); Chloride 106 mmol/L (98-107); Estimated CRCL calculation 159 ml/min; Estimated Glomerular Filt Rate > 60; Glucose 117 mg/dL (65-110); Magnesium 1.6 mg/dL (1.6-2.3); Phosphorus 3.1 mg/dL (2.5-4.5); Potassium 3.1 mmol/L (3.4-5.0); Sodium 136 mmol/L (137-145)
[2021-06-18] MEDS: ALBUMIN HUMAN 25% 25 GM/100 ML 100 ML IVPB ×3 (05:08→17:26)
[2021-06-18] MEDS: MAGNESIUM SULF 2 GM/WATER 50ML 2 GM/50 ML BAG IVPB (08:39)
[2021-06-18] MEDS: POTASSIUM CHLORIDE 20 MEQ PACKET (FOR LIQUID) 40 MEQ PO ×2 (08:40→13:14)
[2021-06-18] MEDS: PANTOPRAZOLE SODIUM IV 40 MG VIAL IV PUSH ×2 (08:40→21:08)
[2021-06-18] MEDS: oxyCODONE HCL (*CRX) 5 MG TAB IR PO ×3 (08:47→21:12)
--- NOTE | 2021-06-18 09:01 | PM.IMPN ---
Progress Note: A&P Assessment and Plan (1) Acute upper GI bleeding: Code(s): K92.2 - Gastrointestinal hemorrhage, unspecified Status: Acute Assessment and Plan: Secondary to bleeding varices and also coagulopathic with INR elevated -he was started on Protonix and octreotide infusions -patient has received 2u FFP, vitamin K, transfused 3 unit of packed RBCs -IV Rocephin for SBP prophylaxis - 06/16 underwent EGD which showed reflux esophagitis, nonbleeding esophageal varices, gastritis, Holt's esophagus with dysplasia -per GI recommendations octreotide infusion will be continued for 72 hours -will complete tonight -PPI IV q.12 hours -hemoglobin has been stable. Will monitor q.12 hours (2) Abdominal pain: Code(s): R10.9 - Unspecified abdominal pain Status: Acute Assessment and Plan: Likely secondary to ascites He had paracentesis yesterday with 5 L of fluid removed. Cell count does not suggest SBP. Cultures are pending. His white count is normal and he is afebrile He is on IV Rocephin 25% albumin given after ascites (3) Ascites: Code(s): R18.8 - Other ascites Status: Acute Assessment and Plan: He had paracentesis 06/17 with 5 L of fluid removed. Cell count does not suggest SBP. Cultures are pending. His white count is normal and he is afebrile 25% albumin given after ascites (4) Alcohol abuse: Code(s): F10.10 - Alcohol abuse, uncomplicated Status: Chronic Assessment and Plan: History of alcohol abuse, patient states he quit about a month ago since his diagnosis of cirrhosis Although patient claims to quit alcohol I am not sure if his history is reliable. No signs of withdrawal at this time. Will continue to monitor for alcohol withdrawal symptoms (5) Anemia: Code(s): D64.9 - Anemia, unspecified Status: Acute Assessment and Plan: Anemia likely related to post hemorrhagic anemia due to GI bleed -blood transfusion is needed, will obtain H&H q.12 hours See above (6) Decompensation of cirrhosis of liver: Code(s): K72.90 - Hepatic failure, unspecified without coma; K74.60 - Unspecified cirrhosis of liver Status: Acute Assessment and Plan: Elevated AST and hyperbilirubinemia -be related to acute GI bleed and melena -will continue to monitor LFTs and bilirubin level which are trending now (7) DVT prophylaxis: Code(s): Z29.9 - Encounter for prophylactic measures, unspecified Status: Acute Assessment and Plan: SCDs (8) Electrolyte abnormality: Code(s): E87.8 - Other disorders of electrolyte and fluid balance, not elsewhere classified Status: Acute Assessment and Plan: Replace low potassium Additional Plan Advance diet SCDs for DVT prophylaxis PT OT consult Up in chair Incentive spirometry Subjective Date/time seen: 06/18/21 He states his abdominal pain is better but still present. He rates it at 5/10. Off and on nausea but no vomiting. Feels lightheaded. Feels weak No other complaints. All other systems were reviewed and were negative Had paracentesis yesterday with 5 L of fluid removed Review of Systems Review of Systems: All systems reviewed & are unremarkable except as noted in HPI and below Exam Const: General: comfortable and no acute distress HENMT: Mouth: Yes moist mucous membranes Eyes: Sclera: scleral abnormality (Icteric) Pupils: Equal, round and reactive pupils present Neck: Neck: supple Thyroid: thyroid normal Lymphatic: lymphadenopathy not noted Resp: Effort & Inspection: normal respiratory effort Auscultation: clear to auscultation bilaterally Cardio: Rate: regular rate and tachycardic GI: Inspection: distended Auscultation: abnormal bowel sounds (Hypoactive bowel sounds) Other: Distention is improved as compared to yesterday, shifting dullness present Neuro: Cranial nerves: Yes Equal, round and reactive pupils present Extrem:
--- NOTE | 2021-06-18 11:24 | PCDIET ---
Nutrition Follow-Up Complete: Nutrition Diagnosis: Inadequate oral intake related to GI bleed as evidenced by NPO status. Nutrition Goal: Patient to meet estimated nutritional needs. Goal in progress. Patient advanced to low sodium (2 gram) diet following 5L paracentesis on 06/17/21. Took Ensure Compact supplement this morning, but prefers the Ensure Clear. Recommend changing back to Ensure Clear BID. Patient may also benefit from multivitamin/minerals daily, given recent history of alcohol use. Last recorded weight is 67.5 kg which is stable with last review. Bowel Motility: BM x 1 on 06/16/21. Labs Reviewed: RBC (2.54), Hgb (7.8), Hct (23.8), Glu (117), BUN (6), Cr (0.5), K (3.1), Na (136), Alb (2.5), Satish Ca (8.32) Meds Noted: Albumin, Rocephin, Ativan, Morphine, Octreotide, Protonix, KCl, Magnesium Sulfate, Morphine Additional Notes: No documented skin breakdown. Will continue to monitor with same goal. Nutrition Monitoring and Evaluation: Follow up every 5 days.
[2021-06-18 15:00] LABS: Hematocrit 30.9 % (42.0-52.0); Hemoglobin 10.1 g/dL (14.0-18.0); Immature Platelet Fraction Pct 3.1 % (0.9-11.2); Mean Corpuscular HGB Conc 32.7 g/dl (32-36); Mean Corpuscular Hemoglobin 32.1 pg (26-34); Mean Corpuscular Volume 98.1 fl (80-100); Mean Platelet Volume 11.7 fl (7.4-10.4); Red Blood Count 3.15 M/mm3 (4.6-6.20); Red Cell Distribution Width 20.7 % (11.5-14.5); White Blood Count 6.4 K/mm3 (4.5-10.0)
[2021-06-18 15:07] LABS: Platelet Count Result 25 k/mm3 (150-375)
--- NOTE | 2021-06-18 15:31 | PM.IMPN ---
Progress Note: A&P Assessment and Plan (1) Acute upper GI bleeding: Code(s): K92.2 - Gastrointestinal hemorrhage, unspecified Status: Acute Assessment and Plan: Secondary to bleeding varices and also coagulopathic with INR elevated -he was started on Protonix and octreotide infusions on 06/15 -patient has received 2u FFP, vitamin K, transfused 3 unit of packed RBCs -IV Rocephin for SBP prophylaxis - 06/16 underwent EGD which showed reflux esophagitis, nonbleeding esophageal varices, gastritis, Holt's esophagus with dysplasia -per GI recommendations octreotide infusion will be continued for 72 hours completes the course for octreotide infusion -on PPI IV q.12 hours -hemoglobin has been stable. Will monitor q.12 hours (2) Abdominal pain: Code(s): R10.9 - Unspecified abdominal pain Status: Acute Assessment and Plan: Likely secondary to ascites He had paracentesis yesterday with 5 L of fluid removed. Cell count does not suggest SBP. Cultures are pending. His white count is normal and he is afebrile He is on IV Rocephin 25% albumin given after ascites (3) Ascites: Code(s): R18.8 - Other ascites Status: Acute Assessment and Plan: He had paracentesis 06/17 with 5 L of fluid removed. Cell count does not suggest SBP. Cultures are pending. His white count is normal and he is afebrile 25% albumin given after ascites Diuretics to start when stable (4) Alcohol abuse: Code(s): F10.10 - Alcohol abuse, uncomplicated Status: Chronic Assessment and Plan: History of alcohol abuse, patient states he quit about a month ago since his diagnosis of cirrhosis: He states to me he drank a day prior to coming here Although patient claims to quit alcohol I am not sure if his history is reliable. No signs of withdrawal at this time. Will continue to monitor for alcohol withdrawal symptoms (5) Anemia: Code(s): D64.9 - Anemia, unspecified Status: Acute Assessment and Plan: Anemia likely related to post hemorrhagic anemia due to GI bleed -blood transfusion is needed, will obtain H&H q.12 hours See above (6) Decompensation of cirrhosis of liver: Code(s): K72.90 - Hepatic failure, unspecified without coma; K74.60 - Unspecified cirrhosis of liver Status: Acute Assessment and Plan: Elevated AST and hyperbilirubinemia -be related to acute GI bleed and melena -will continue to monitor LFTs and bilirubin level which are trending now (7) DVT prophylaxis: Code(s): Z29.9 - Encounter for prophylactic measures, unspecified Status: Acute Assessment and Plan: SCDs (8) Electrolyte abnormality: Code(s): E87.8 - Other disorders of electrolyte and fluid balance, not elsewhere classified Status: Acute Assessment and Plan: Replace low potassium (9) Hepatic encephalopathy: Code(s): K72.90 - Hepatic failure, unspecified without coma Status: Acute Assessment and Plan: Is more encephalopathic today have not see him before though asterixis present Ammonia level is elevated Will added rifaximin 550 mg twice daily (10) Portal hypertension: Code(s): K76.6 - Portal hypertension Status: Acute Assessment and Plan: Need to start beta-lisa propranolol (11) Thrombocytopenia: Code(s): D69.6 - Thrombocytopenia, unspecified Status: Acute Assessment and Plan: Acutely worsened this evening not sure if it is real hemoglobin is off as well Will repeat to ensure no error Additional Plan Advance diet on clears SCDs for DVT prophylaxis PT OT consult Up in chair Incentive spirometry Subjective Date/time seen: 06/18/21 15:31 Interval history: Reports some pain in his left side of the abdomen does not feels too well sleepy and drowsy denies any nausea or vomiting reports dark stool last 1 yesterday discussed with nursing staff Review of Systems Review of Systems:
[2021-06-18 15:34] LABS: Ammonia 75 umol/L (9-30)
--- NOTE | 2021-06-18 16:35 | WPDGIPROGNO ---
Progress Note: A&P Assessment and Plan (1) Esophageal varices with bleeding: Code(s): I85.01 - Esophageal varices with bleeding Status: Acute Assessment and Plan: no more bleeding, continue with iv octreotide (complete infusion tonight) and protonix hb stable after transfusion tolerating diet (2) Acute on chronic blood loss anemia: Code(s): D62 - Acute posthemorrhagic anemia Status: Acute Assessment and Plan: stable after blood transfusion (3) Acute upper GI bleeding: Code(s): K92.2 - Gastrointestinal hemorrhage, unspecified Status: Acute (4) Coagulopathy: Code(s): D68.9 - Coagulation defect, unspecified Status: Acute Assessment and Plan: from decompensated liver disease (5) Holt's esophagus with esophagitis: Code(s): K22.70 - Holt's esophagus without dysplasia; K20.90 - Esophagitis, unspecified without bleeding Status: Acute Assessment and Plan: continue with protonix (6) Decompensation of cirrhosis of liver: Code(s): K72.90 - Hepatic failure, unspecified without coma; K74.60 - Unspecified cirrhosis of liver Status: Acute (7) Hepatic encephalopathy: Code(s): K72.90 - Hepatic failure, unspecified without coma Status: Acute Assessment and Plan: added xifaxan (8) Abdominal ascites: Qualifiers: Ascites type: due to alcoholic cirrhosis Qualified Code(s): K70.31 - Alcoholic cirrhosis of liver with ascites Code(s): R18.8 - Other ascites Status: Acute Assessment and Plan: s/p paracentesis with no obvious SBP but still on antibiotics given acute gib he received albumin iv after procedure (9) Alcoholic hepatitis: Code(s): K70.10 - Alcoholic hepatitis without ascites Status: Chronic Assessment and Plan: thiamine, mvi, nutrition support Subjective Date/time seen: 06/18/21 16:35 Interval history: no signs of bleeding, some epigastric discomfort. Sleepy Review of Systems Review of Systems: All systems reviewed & are unremarkable except as noted in HPI and below Exam Const: General: no acute distress and ill appearing chronically HENMT: General nose exam: Normal nares present Eyes: Sclera: sclerae normal Neck: Neck: supple Resp: Auscultation: clear to auscultation bilaterally Cardio: Rate: regular rate GI: GI Palp: Yes Soft to palpation and Yes Tenderness to palpation present (GI) (mild ttp in epigastric, no rebound. Less distended after paracentesis) Auscultation: normal bowel sounds Skin: General skin exam: no rashes or lesions noted Neuro: Speech: normal speech Other: more sleepy today Extrem: General: normal to inspection Psych: Affect: Anxious affect present Objective Data Vital Signs Vital Signs: Vital Signs - 24 hr 06/17/21 18:00 06/17/21 20:00 06/17/21 21:23 Temperature 97.8 F Pulse Rate 107 H 102 H Respiratory Rate 18 Blood Pressure 95/69 L Pulse Oximetry 98 96 06/17/21 21:26 06/18/21 00:00 06/18/21 02:00 Temperature 97.8 F Pulse Rate 98 102 H 91 Respiratory Rate 20 Blood Pressure 99/80 L Pulse Oximetry 95 06/18/21 03:33 06/18/21 05:15 06/18/21 08:00 Temperature 97.9 F 97.1 F L Pulse Rate 100 94 98 Respiratory Rate 20 29 H Blood Pressure 112/75 117/86 Pulse Oximetry 95 100 06/18/21 10:00 06/18/21 12:00 Temperature 97.0 F L Pulse Rate 108 H 112 H Respiratory Rate 17 Blood Pressure 106/78 Pulse Oximetry 100 Intake/Output Intake/Output: Intake & Output 06/15/21 06/16/21 06/17/21 06/18/21 23:59 23:59 23:59 23:59 Intake Total 4968 2450.0 450 608.7 Output Total 1600 1575 5150 350 Balance 3368 875.0 -4700 258.7 Meds/Results Medications: Active Medications Generic Name Dose Route Start Last Admin Trade Name Freq PRN Reason Stop Dose Admin Folic Acid 1 mg 06/19/21 09:00 Folic Acid 1 Mg Tablet PO DAILY LIDA Ceftriaxone Sodium 2 gm
[2021-06-18] MEDS: LACTULOSE 20 GM/30 ML UDC PO (17:26)
[2021-06-18 17:36] LABS: Basophils Absolute Auto 0.1 K/mm3 (0.0-0.1); Basophils Percent Auto 0.8 % (0.2-1.2); Eosinophils Absolute Auto 0.1 K/mm3 (0-0.3); Eosinophils Percent Auto 1.2 % (0-4.4); Hematocrit 26.1 % (42.0-52.0); Hemoglobin 8.4 g/dL (14.0-18.0); Immature Granulocyte Absolute 0.04 K/mm3 (0.00-0.031); Immature Granulocyte Percent A 0.5 % (0-0.5); Immature Platelet Fraction Pct 3.2 % (0.9-11.2); Lymphocytes Absolute Auto 1.04 K/mm3 (0.9-3.2); Lymphocytes Percent Auto 12.5 % (18.3-44.2); Mean Corpuscular HGB Conc 32.2 g/dl (32-36); Mean Corpuscular Hemoglobin 31.8 pg (26-34); Mean Corpuscular Volume 98.9 fl (80-100); Mean Platelet Volume 9.6 fl (7.4-10.4); Monocytes Absolute Auto 1.9 K/mm3 (0.1-0.6); Monocytes Percent Auto 22.4 % (2.6-8.5); Neutrophils Absolute Auto 5.2 K/mm3 (1.3-6.7); Neutrophils Percent Auto 62.6 % (45.5-73.1); Platelet Count Result 112 k/mm3 (150-375); Red Blood Count 2.64 M/mm3 (4.6-6.20); Red Cell Distribution Width 20.3 % (11.5-14.5); White Blood Count 8.3 K/mm3 (4.5-10.0)
[2021-06-18 18:02] LABS: Anisocytosis 3+ (NORMAL); Platelet Estimate Decreased (Adequate)
[2021-06-18] MEDS: rifAXIMin 550 MG TABLET PO (21:08)
[2021-06-19] VITALS (14 sets, daily range): BP systolic 86–124; BP diastolic 63–81; PULSE 90–115; RESP 16–23; TEMP 36.6–37.3; O2SAT 95–99
[2021-06-19] MEDS: LORazepam INJ (*CRX) 2 MG/ML VIAL 0.5 MG IV PUSH ×2 (00:55→10:08)
[2021-06-19 04:52] LABS: Hematocrit 24.8 % (42.0-52.0); Hemoglobin 8.2 g/dL (14.0-18.0); Immature Platelet Fraction Pct 3.2 % (0.9-11.2); Mean Corpuscular HGB Conc 33.1 g/dl (32-36); Mean Corpuscular Hemoglobin 31.9 pg (26-34); Mean Corpuscular Volume 96.5 fl (80-100); Mean Platelet Volume 9.9 fl (7.4-10.4); Platelet Count Result 115 k/mm3 (150-375); Red Blood Count 2.57 M/mm3 (4.6-6.20); Red Cell Distribution Width 20.3 % (11.5-14.5); White Blood Count 6.7 K/mm3 (4.5-10.0)
[2021-06-19 05:36] LABS: Alanine Aminotransferase 35 U/L (4-50); Alkaline Phosphatase 116 U/L (38-126); Anion Gap 8 mmol/L (8-16); Aspartate Amino Transferase 97 U/L (17-59); Bilirubin,Total 4.5 mg/dL (0.2-1.3); Blood Urea Nitrogen 6 mg/dL (9-20); Carbon Dioxide 25 mmol/L (22-30); Chloride 101 mmol/L (98-107); Estimated CRCL calculation 159 ml/min; Estimated Glomerular Filt Rate > 60; Glucose 105 mg/dL (65-110); Phosphorus 2.9 mg/dL (2.5-4.5); Potassium 3.5 mmol/L (3.4-5.0); Sodium 134 mmol/L (137-145)
[2021-06-19] MEDS: LACTULOSE 20 GM/30 ML UDC PO ×2 (08:08→13:23)
[2021-06-19] MEDS: PANTOPRAZOLE SODIUM IV 40 MG VIAL IV PUSH ×2 (08:57→19:54)
[2021-06-19] MEDS: THIAMINE HCL 100 MG TABLET PO (08:57)
[2021-06-19] MEDS: FOLIC ACID 1 MG TABLET PO (08:57)
[2021-06-19] MEDS: PROPRANOLOL HCL 10 MG TABLET PO ×2 (08:57→19:56)
[2021-06-19] MEDS: rifAXIMin 550 MG TABLET PO ×2 (08:57→19:59)
[2021-06-19 09:02] LABS: Ammonia 49 umol/L (9-30)
--- NOTE | 2021-06-19 10:13 | PCPTNOTE ---
Attempted to see patient for PT, however unable to see patient at this time. Per RN not right now due to patient just getting Ativan. Will check back later.
--- NOTE | 2021-06-19 11:15 | PCOTNOTE ---
Attempted to see patient this am, however patient sleeping upon entering and very drowsy at this time. Per RN, patient was given Ativan. Pt declined ADLs stating, I already did all that yesterday.
--- NOTE | 2021-06-19 15:27 | PM.IMPN ---
Progress Note: A&P Assessment and Plan (1) Acute upper GI bleeding: Code(s): K92.2 - Gastrointestinal hemorrhage, unspecified Status: Acute Assessment and Plan: Secondary to bleeding varices and also coagulopathic with INR elevated -he was started on Protonix and octreotide infusions on 06/15 -patient has received 2u FFP, vitamin K, transfused 3 unit of packed RBCs -IV Rocephin for SBP prophylaxis - 06/16 underwent EGD which showed reflux esophagitis, nonbleeding esophageal varices, gastritis, Holt's esophagus with dysplasia -per GI recommendations octreotide infusion will be continued for 72 hours completes the course for octreotide infusion -on PPI IV q.12 hours -hemoglobin has been stable. Will monitor q.12 hours (2) Abdominal pain: Code(s): R10.9 - Unspecified abdominal pain Status: Acute Assessment and Plan: Likely secondary to ascites He had paracentesis yesterday with 5 L of fluid removed. Cell count does not suggest SBP. Cultures are pending. His white count is normal and he is afebrile He is on IV Rocephin 25% albumin given after ascites (3) Ascites: Code(s): R18.8 - Other ascites Status: Acute Assessment and Plan: He had paracentesis 06/17 with 5 L of fluid removed. Cell count does not suggest SBP. Cultures are pending. His white count is normal and he is afebrile 25% albumin given after ascites Diuretics to start when stable (4) Alcohol abuse: Code(s): F10.10 - Alcohol abuse, uncomplicated Status: Chronic Assessment and Plan: History of alcohol abuse, patient states he quit about a month ago since his diagnosis of cirrhosis: He states to me he drank a day prior to coming here Although patient claims to quit alcohol I am not sure if his history is reliable. No signs of withdrawal at this time. Will continue to monitor for alcohol withdrawal symptoms (5) Anemia: Code(s): D64.9 - Anemia, unspecified Status: Acute Assessment and Plan: Anemia likely related to post hemorrhagic anemia due to GI bleed -blood transfusion is needed, will obtain H&H q.12 hours See above (6) Decompensation of cirrhosis of liver: Code(s): K72.90 - Hepatic failure, unspecified without coma; K74.60 - Unspecified cirrhosis of liver Status: Acute Assessment and Plan: Elevated AST and hyperbilirubinemia -be related to acute GI bleed and melena -will continue to monitor LFTs and bilirubin level which are trending now (7) DVT prophylaxis: Code(s): Z29.9 - Encounter for prophylactic measures, unspecified Status: Acute Assessment and Plan: SCDs (8) Electrolyte abnormality: Code(s): E87.8 - Other disorders of electrolyte and fluid balance, not elsewhere classified Status: Acute Assessment and Plan: Replace low potassium (9) Hepatic encephalopathy: Code(s): K72.90 - Hepatic failure, unspecified without coma Status: Acute Assessment and Plan: Is more encephalopathic today have not see him before though asterixis present Ammonia level is elevated Will added rifaximin 550 mg twice daily ammonia level improving (10) Portal hypertension: Code(s): K76.6 - Portal hypertension Status: Acute Assessment and Plan: Need to start beta-lisa propranolol (11) Thrombocytopenia: Code(s): D69.6 - Thrombocytopenia, unspecified Status: Acute Assessment and Plan: Acutely worsened this evening not sure if it is real hemoglobin is off as well Will repeat to ensure no error repeat was better likely a lab error Additional Plan Advance diet on clears SCDs for DVT prophylaxis PT OT consult Up in chair Incentive spirometry Subjective Date/time seen: 06/19/21 15:27 Interval history: Feels better no new complaints was up to the chair this morning no further bowel movement. No vomiting of blood feels tired Review of Systems Review of Systems:
--- NOTE | 2021-06-19 16:24 | WPDGIPROGNO ---
Progress Note: A&P Assessment and Plan (1) Esophageal varices with bleeding: Code(s): I85.01 - Esophageal varices with bleeding Status: Acute Assessment and Plan: no more bleeding, already completed octreotide infusion protonix bid no more signs of bleeding tolerating diet he will need follow-up with his vice president of engineering at [facility]- given presentation with GIB due to varices and recurrent ascites probably could be a candidate for TIPS as outpatient, this can be discussed with his liver team in near future next appointment (2) Acute on chronic blood loss anemia: Code(s): D62 - Acute posthemorrhagic anemia Status: Acute Assessment and Plan: stable after blood transfusion (3) Acute upper GI bleeding: Code(s): K92.2 - Gastrointestinal hemorrhage, unspecified Status: Acute (4) Coagulopathy: Code(s): D68.9 - Coagulation defect, unspecified Status: Acute Assessment and Plan: from decompensated liver disease (5) Holt's esophagus with esophagitis: Code(s): K22.70 - Holt's esophagus without dysplasia; K20.90 - Esophagitis, unspecified without bleeding Status: Acute Assessment and Plan: continue with protonix (6) Decompensation of cirrhosis of liver: Code(s): K72.90 - Hepatic failure, unspecified without coma; K74.60 - Unspecified cirrhosis of liver Status: Acute (7) Hepatic encephalopathy: Code(s): K72.90 - Hepatic failure, unspecified without coma Status: Acute Assessment and Plan: added xifaxan (8) Abdominal ascites: Qualifiers: Ascites type: due to alcoholic cirrhosis Qualified Code(s): K70.31 - Alcoholic cirrhosis of liver with ascites Code(s): R18.8 - Other ascites Status: Acute Assessment and Plan: s/p paracentesis with no obvious SBP but still on antibiotics given acute gib he received albumin iv after procedure will start low dose of diuretics (renal function normal) 2g na diet (9) Alcoholic hepatitis: Code(s): K70.10 - Alcoholic hepatitis without ascites Status: Chronic Assessment and Plan: thiamine, mvi, nutrition support Subjective Date/time seen: 06/19/21 16:24 Interval history: no report of gib, still feeling tired Review of Systems Review of Systems: All systems reviewed & are unremarkable except as noted in HPI and below Exam Const: General: no acute distress and ill appearing chronically HENMT: General nose exam: Normal nares present Eyes: Sclera: sclerae normal Neck: Neck: supple Resp: Auscultation: clear to auscultation bilaterally Cardio: Rate: regular rate GI: GI Palp: Yes Soft to palpation Percussion: Yes Fluid wave present Auscultation: normal bowel sounds Skin: General skin exam: no rashes or lesions noted Neuro: Speech: normal speech Other: more sleepy today Extrem: General: normal to inspection Psych: Affect: Anxious affect present Objective Data Vital Signs Vital Signs: Vital Signs - 24 hr 06/18/21 18:54 06/18/21 20:00 06/18/21 22:00 Temperature 97.9 F Pulse Rate 110 H 104 H 102 H Respiratory Rate 20 Blood Pressure 112/85 Pulse Oximetry 96 06/19/21 00:00 06/19/21 01:52 06/19/21 02:00 Temperature 97.9 F Pulse Rate 98 113 H 110 H Respiratory Rate 20 20 Blood Pressure 86/63 L 106/79 Pulse Oximetry 96 06/19/21 03:07 06/19/21 05:05 06/19/21 08:00 Temperature 97.8 F 98.8 F Pulse Rate 110 H 103 H 115 H Respiratory Rate 16 17 Blood Pressure 117/77 107/77 Pulse Oximetry 96 96 06/19/21 08:57 06/19/21 10:00 06/19/21 12:00 Temperature 98.8 F Pulse Rate 113 H 106 H 105 H Respiratory Rate 23 H Blood Pressure 110/73 Pulse Oximetry 99 06/19/21 14:00 06/19/21 16:00 Temperature Pulse Rate 104 H 103 H Respiratory Rate 21 H Blood Pressure 124/81 Pulse Oximetry 95 Intake/Output Intake/Output: Intake & Output 06/16/21 06/17/21 06/18/21/
[2021-06-19 16:58] LABS: Hematocrit 30.4 % (42.0-52.0); Hemoglobin 9.9 g/dL (14.0-18.0); Immature Platelet Fraction Pct 3.6 % (0.9-11.2); Mean Corpuscular HGB Conc 32.6 g/dl (32-36); Mean Corpuscular Hemoglobin 32.6 pg (26-34); Mean Platelet Volume 10.3 fl (7.4-10.4); Platelet Count Result 123 k/mm3 (150-375); Red Blood Count 3.04 M/mm3 (4.6-6.20); Red Cell Distribution Width 21.4 % (11.5-14.5); White Blood Count 8.8 K/mm3 (4.5-10.0)
--- NOTE | 2021-06-19 16:59 | PC.NURSE ---
PATIENT TRANSFERED TO ROOM 306. REPORT GIVEN TO ALFREDO MARIE. ALL QUESTIONS ANSWERED.
--- NOTE | 2021-06-19 17:52 | PC.NURSE ---
This patient, Lukas Diaz, was received from ICU on 06/19/21 at 1645. Patient/family oriented to unit policies and routines
[2021-06-20] VITALS (7 sets, daily range): BP systolic 101–109; BP diastolic 53–68; PULSE 74–95; RESP 16–18; TEMP 36.7–37.3; O2SAT 98–100
[2021-06-20 06:36] LABS: Hemoglobin 9.6 g/dL (14.0-18.0); Mean Corpuscular Hemoglobin 32.1 pg (26-34); Mean Corpuscular Volume 100.3 fl (80-100); Mean Platelet Volume 9.6 fl (7.4-10.4); Platelet Count Result 131 k/mm3 (150-375); Red Blood Count 2.99 M/mm3 (4.6-6.20); Red Cell Distribution Width 21.7 % (11.5-14.5); White Blood Count 10.3 K/mm3 (4.5-10.0)
[2021-06-20 06:48] LABS: Alanine Aminotransferase 43 U/L (4-50); Albumin Level 3.5 g/dL (3.5-5.1); Alkaline Phosphatase 194 U/L (38-126); Ammonia 35 umol/L (9-30); Anion Gap 9 mmol/L (8-16); Aspartate Amino Transferase 111 U/L (17-59); Bilirubin,Total 5.1 mg/dL (0.2-1.3); Blood Urea Nitrogen 9 mg/dL (9-20); Calcium 8.6 mg/dL (8.4-10.2); Carbon Dioxide 25 mmol/L (22-30); Chloride 97 mmol/L (98-107); Estimated CRCL calculation 135 ml/min; Estimated Glomerular Filt Rate > 60; Glucose 84 mg/dL (65-110); Potassium 3.6 mmol/L (3.4-5.0); Sodium 131 mmol/L (137-145)
[2021-06-20] MEDS: LACTULOSE 20 GM/30 ML UDC PO ×3 (08:39→17:21)
[2021-06-20] MEDS: LORazepam INJ (*CRX) 2 MG/ML VIAL 0.5 MG IV PUSH ×2 (08:39→17:20)
[2021-06-20] MEDS: rifAXIMin 550 MG TABLET PO ×2 (08:40→21:24)
[2021-06-20] MEDS: PANTOPRAZOLE SODIUM IV 40 MG VIAL IV PUSH ×2 (08:40→21:22)
[2021-06-20] MEDS: FOLIC ACID 1 MG TABLET PO (08:41)
[2021-06-20] MEDS: PROPRANOLOL HCL 10 MG TABLET PO ×2 (08:41→21:23)
[2021-06-20] MEDS: THIAMINE HCL 100 MG TABLET PO (08:42)
[2021-06-20] MEDS: SPIRONOLACTONE 50 MG TABLET PO (08:43)
[2021-06-20] MEDS: FUROSEMIDE 20 MG TABLET PO (08:43)
--- NOTE | 2021-06-20 13:07 | PM.IMPN ---
Progress Note: A&P Assessment and Plan (1) Acute upper GI bleeding: Code(s): K92.2 - Gastrointestinal hemorrhage, unspecified Status: Acute Assessment and Plan: Secondary to bleeding varices and also coagulopathic with INR elevated -he was started on Protonix and octreotide infusions on 06/15 -patient has received 2u FFP, vitamin K, transfused 3 unit of packed RBCs -IV Rocephin for SBP prophylaxis will continue for total 7 days ( started on 06/15 ) - 06/16 underwent EGD which showed reflux esophagitis, nonbleeding esophageal varices, gastritis, Holt's esophagus with dysplasia -per GI recommendations octreotide infusion will be continued for 72 hours completes the course for octreotide infusion -on PPI IV q.12 hours -hemoglobin has been stable. (2) Abdominal pain: Code(s): R10.9 - Unspecified abdominal pain Status: Acute Assessment and Plan: Likely secondary to ascites He had paracentesis yesterday with 5 L of fluid removed. Cell count does not suggest SBP. Cultures are pending. His white count is normal and he is afebrile He is on IV Rocephin 25% albumin given after ascites (3) Ascites: Code(s): R18.8 - Other ascites Status: Acute Assessment and Plan: He had paracentesis 06/17 with 5 L of fluid removed. Cell count does not suggest SBP. Cultures are pending. His white count is normal and he is afebrile 25% albumin given after ascites Diuretics started today per GI Lasix 20 mg and Aldactone 50 mg Watch his blood pressure today if he tolerates (4) Alcohol abuse: Code(s): F10.10 - Alcohol abuse, uncomplicated Status: Chronic Assessment and Plan: History of alcohol abuse, patient states he quit about a month ago since his diagnosis of cirrhosis: He states to me he drank a day prior to coming here Although patient claims to quit alcohol I am not sure if his history is reliable. No signs of withdrawal at this time. Will continue to monitor for alcohol withdrawal symptoms (5) Anemia: Code(s): D64.9 - Anemia, unspecified Status: Acute Assessment and Plan: Anemia likely related to post hemorrhagic anemia due to GI bleed -blood transfusion is needed, will obtain H&H q.12 hours See above (6) Decompensation of cirrhosis of liver: Code(s): K72.90 - Hepatic failure, unspecified without coma; K74.60 - Unspecified cirrhosis of liver Status: Acute Assessment and Plan: Elevated AST and hyperbilirubinemia -be related to acute GI bleed and melena -will continue to monitor LFTs and bilirubin level which are trending now (7) DVT prophylaxis: Code(s): Z29.9 - Encounter for prophylactic measures, unspecified Status: Acute Assessment and Plan: SCDs (8) Electrolyte abnormality: Code(s): E87.8 - Other disorders of electrolyte and fluid balance, not elsewhere classified Status: Acute Assessment and Plan: Replace low potassium (9) Hepatic encephalopathy: Code(s): K72.90 - Hepatic failure, unspecified without coma Status: Acute Assessment and Plan: Is more encephalopathic today have not see him before though asterixis present Ammonia level is elevated Will added rifaximin 550 mg twice daily ammonia level improving Also on lactulose (10) Portal hypertension: Code(s): K76.6 - Portal hypertension Status: Acute Assessment and Plan: started on propranolol 10 mg p.o. b.i.d. tolerating okay (11) Thrombocytopenia: Code(s): D69.6 - Thrombocytopenia, unspecified Status: Acute Assessment and Plan: Acutely worsened 06/18 not sure if it is real as hemoglobin is off as well Will repeat to ensure no error repeat was better likely a lab error Continues to improve Additional Plan Advance diet on clears SCDs for DVT prophylaxis PT OT consult requiring rehabilitation accepted at [facility] and rehab Up in chair Incentive spirometry
--- NOTE | 2021-06-20 16:00 | WPDGIPROGNO ---
Progress Note: A&P Assessment and Plan (1) Esophageal varices with bleeding: Code(s): I85.01 - Esophageal varices with bleeding Status: Acute Assessment and Plan: no more bleeding, s/p octreotide infusion protonix bid no more signs of bleeding and moved to floor tolerating diet he will need follow-up with his second officer at [facility]- ? eventually TIPS procedure (2) Acute on chronic blood loss anemia: Code(s): D62 - Acute posthemorrhagic anemia Status: Acute Assessment and Plan: stable after blood transfusion (3) Acute upper GI bleeding: Code(s): K92.2 - Gastrointestinal hemorrhage, unspecified Status: Acute (4) Coagulopathy: Code(s): D68.9 - Coagulation defect, unspecified Status: Acute Assessment and Plan: from decompensated liver disease (5) Holt's esophagus with esophagitis: Code(s): K22.70 - Holt's esophagus without dysplasia; K20.90 - Esophagitis, unspecified without bleeding Status: Acute Assessment and Plan: continue with protonix (6) Decompensation of cirrhosis of liver: Code(s): K72.90 - Hepatic failure, unspecified without coma; K74.60 - Unspecified cirrhosis of liver Status: Acute (7) Hepatic encephalopathy: Code(s): K72.90 - Hepatic failure, unspecified without coma Status: Acute Assessment and Plan: added xifaxan, also on lactulose he is awake and alert (8) Abdominal ascites: Qualifiers: Ascites type: due to alcoholic cirrhosis Qualified Code(s): K70.31 - Alcoholic cirrhosis of liver with ascites Code(s): R18.8 - Other ascites Status: Acute Assessment and Plan: s/p paracentesis with no obvious SBP but still on antibiotics given acute gib he received albumin iv after procedure on aldactone and lasix with normal renal function 2g na diet (9) Alcoholic hepatitis: Code(s): K70.10 - Alcoholic hepatitis without ascites Status: Chronic Assessment and Plan: thiamine, mvi, nutrition support Subjective Date/time seen: 06/20/21 16:00 Interval history: moved to floor, tolerating diet, no more bleeding, abdomen distended Review of Systems Review of Systems: All systems reviewed & are unremarkable except as noted in HPI and below Exam Const: General: no acute distress and ill appearing chronically HENMT: General nose exam: Normal nares present Eyes: Sclera: sclerae normal Neck: Neck: supple Resp: Auscultation: clear to auscultation bilaterally Cardio: Rate: regular rate GI: GI Palp: Yes Soft to palpation Percussion: Yes Fluid wave present Auscultation: normal bowel sounds Skin: General skin exam: no rashes or lesions noted Neuro: Speech: normal speech Other: more sleepy today Extrem: General: normal to inspection Psych: Affect: Anxious affect present Objective Data Vital Signs Vital Signs: Vital Signs - 24 hr 06/19/21 19:50 06/19/21 19:56 06/19/21 21:37 Temperature 99.2 F Pulse Rate 98 90 98 Respiratory Rate 18 18 Blood Pressure 109/66 Pulse Oximetry 96 96 06/20/21 05:38 06/20/21 08:00 06/20/21 08:41 Temperature 99.2 F Pulse Rate 95 92 Respiratory Rate 18 Blood Pressure 107/67 Pulse Oximetry 98 98 06/20/21 14:00 Temperature 98.0 F Pulse Rate 92 Respiratory Rate 16 Blood Pressure 109/68 Pulse Oximetry 100 Intake/Output Intake/Output: Intake & Output 06/17/21 06/18/21 06/19/21 06/20/21 23:59 23:59 23:59 23:59 Intake Total 450 3088.7 1960 1040 Output Total 5150 700 850 Balance -4700 2388.7 1110 1040 Meds/Results Medications: Active Medications Generic Name Dose Route Start Last Admin Trade Name Parthq PRN Reason Stop Dose Admin Folic Acid 1 mg 06/19/21 09:00 06/20/21 08:41 Folic Acid 1 Mg Tablet PO 1 mg DAILY LIDA Administration Furosemide 20 mg 06/20/21 09:00 06/20/21 08:43 Furosemide 20 Mg Tablet PO 20 mg DAILY LIDA Administrat
[2021-06-21 06:00] VITALS: BP 111/55; PULSE 92; RESP 18; TEMP 36.7; O2SAT 97
[2021-06-21 06:23] LABS: Basophils Absolute Auto 0.1 K/mm3 (0.0-0.1); Basophils Percent Auto 0.9 % (0.2-1.2); Eosinophils Absolute Auto 0.2 K/mm3 (0-0.3); Eosinophils Percent Auto 2.3 % (0-4.4); Hematocrit 23.7 % (42.0-52.0); Hemoglobin 8.2 g/dL (14.0-18.0); Immature Granulocyte Absolute 0.15 K/mm3 (0.00-0.031); Immature Granulocyte Percent A 1.7 % (0-0.5); Immature Platelet Fraction Pct 2.8 % (0.9-11.2); Lymphocytes Absolute Auto 1.24 K/mm3 (0.9-3.2); Lymphocytes Percent Auto 14.3 % (18.3-44.2); Mean Corpuscular HGB Conc 34.6 g/dl (32-36); Mean Corpuscular Hemoglobin 32.7 pg (26-34); Mean Corpuscular Volume 94.4 fl (80-100); Monocytes Absolute Auto 2.8 K/mm3 (0.1-0.6); Monocytes Percent Auto 32.7 % (2.6-8.5); Neutrophils Absolute Auto 4.2 K/mm3 (1.3-6.7); Neutrophils Percent Auto 48.1 % (45.5-73.1); Platelet Count Result 131 k/mm3 (150-375); Red Blood Count 2.51 M/mm3 (4.6-6.20); Red Cell Distribution Width 21.4 % (11.5-14.5); White Blood Count 8.7 K/mm3 (4.5-10.0)
[2021-06-21 06:33] LABS: Alanine Aminotransferase 35 U/L (4-50); Albumin Level 2.8 g/dL (3.5-5.1); Alkaline Phosphatase 161 U/L (38-126); Anion Gap 8 mmol/L (8-16); Aspartate Amino Transferase 80 U/L (17-59); Bilirubin,Total 3.2 mg/dL (0.2-1.3); Blood Urea Nitrogen 8 mg/dL (9-20); Calcium 8.1 mg/dL (8.4-10.2); Carbon Dioxide 22 mmol/L (22-30); Chloride 104 mmol/L (98-107); Estimated CRCL calculation 159 ml/min; Estimated Glomerular Filt Rate > 60; Glucose 106 mg/dL (65-110); Potassium 3.4 mmol/L (3.4-5.0); Sodium 134 mmol/L (137-145)
[2021-06-21] MEDS: LACTULOSE 20 GM/30 ML UDC PO ×3 (08:07→17:55)
[2021-06-21] MEDS: THIAMINE HCL 100 MG TABLET PO (08:08)
[2021-06-21] MEDS: rifAXIMin 550 MG TABLET PO ×2 (08:08→21:46)
[2021-06-21] MEDS: PANTOPRAZOLE SODIUM IV 40 MG VIAL IV PUSH (08:08)
[2021-06-21] MEDS: FUROSEMIDE 20 MG TABLET PO (08:08)
[2021-06-21 08:09] VITALS: PULSE 92
[2021-06-21] MEDS: PROPRANOLOL HCL 10 MG TABLET PO ×2 (08:09→21:46)
[2021-06-21] MEDS: SPIRONOLACTONE 50 MG TABLET PO ×2 (08:09→17:56)
[2021-06-21] MEDS: FOLIC ACID 1 MG TABLET PO (08:09)
[2021-06-21] MEDS: LORazepam INJ (*CRX) 2 MG/ML VIAL 0.5 MG IV PUSH ×4 (08:09→21:46)
[2021-06-21 09:14] VITALS: BP 100/64; PULSE 92; RESP 16; TEMP 37.2; O2SAT 100
--- NOTE | 2021-06-21 09:17 | WPDGIPROGNO ---
Subjective Date/time seen: 06/21/21 09:17 This very pleasant gentleman is complaining of auditory hallucinations. No nausea, vomiting or hematemesis. He is complaining of increasing abdominal girth. No fever or chills. No difficulty with breathing or chest pain. General: very pleasant patient in no acute distress. HEENT: Head was normocephalic sclerae is clear mouth without masses neck was supple. Heart: Rate rhythm regular without S3 or S4. Lungs: CTA. Abdomen: Abdomen was distended with bulging flanks. Compatible with ascites. Neurologic: Cranial nerves 2 through 12 intact. No focal defects. No clonus. Musculoskeletal system: Revealed no joint tenderness or swelling no muscle atrophy. Extremities: Reveal no significant edema. Skin: Warm and dry with normal turgor. Mental status: intact. Patient is alert and oriented. Impression: GI bleeding secondary to esophageal varices. Auditory hallucinations unknown etiology. Alcoholic cirrhosis with complicating factors: Ascites. Esophageal varices/portal hypertensive gastropathy. 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 Hepatic encephalopathy. Class B erosive esophagitis with possible Holt's esophagus. Alcohol abuse. Tobacco abuse. Recommendation: Continue Protonix q.12 hours orally. Increase Aldactone to 50 b.i.d.. Therapeutic paracentesis. Discontinue antibiotics. Cultures are thus far negative. Consider Neurology evaluation regarding auditory hallucinations. Recheck laboratory studies. Discontinue narcotics. Continue Xifaxan. May consider discontinuing lactulose on discharge. Review of Systems Review of Systems: All systems reviewed & are unremarkable except as noted in HPI and below Objective Data Vital Signs Vital Signs: Vital Signs - 24 hr 06/20/21 14:00 06/20/21 20:40 06/20/21 21:23 Temperature 36.7 C Pulse Rate 92 74 74 Respiratory Rate 16 16 Blood Pressure 109/68 Pulse Oximetry 100 100 06/20/21 22:00 06/21/21 06:00 06/21/21 08:09 Temperature 36.7 C 36.7 C Pulse Rate 95 92 92 Respiratory Rate 18 18 Blood Pressure 101/53 L 111/55 L Pulse Oximetry 98 97 Intake/Output Intake/Output: Intake & Output 06/18/21 06/19/21 06/20/21 06/21/21 23:59 23:59 23:59 23:59 Intake Total 3088.7 1960 1880 1070 Output Total 700 850 Balance 2388.7 1110 1880 1070 Meds/Results Medications: Active Medications Generic Name Dose Route Start Last Admin Trade Name Lena PRN Reason Stop Dose Admin Folic Acid 1 mg 06/19/21 09:00 06/21/21 08:09 Folic Acid 1 Mg Tablet PO 1 mg DAILY LIDA Administration Furosemide 20 mg 06/20/21 09:00 06/21/21 08:08 Furosemide 20 Mg Tablet PO 20 mg DAILY LIDA Administration Albumin Human 100 mls @ 60 mls/hr 06/21/21 09:12 Albutein IVPB 06/21/21 10:51 ONCE ONE Lactulose 20 gm 06/18/21 17:30 06/21/21 08:07 Lactulose 20 Gm/30 Ml Udc PO 20 gm TIDPC LIDA Administration Lorazepam 0.5 mg 06/15/21 12:12 06/21/21 08:09 Lorazepam Inj (*Crx) 2 Mg/Ml Vial IV PUSH 0.5 mg Q4H PRN Administration Anxiety Ondansetron HCl 4 mg 06/15/21 08:13 Ondansetron Inj 4 Mg/2 Ml Vial IV PUSH Q6H PRN Nausea And Vomiting Ondansetron HCl 4 mg 06/18/21 15:45 Ondansetron Hcl Odt 4 Mg Tablet PO Q8H PRN nausea and vomiting Pantoprazole Sodium 40 mg 06/16/21 21:00 06/21/21 08:08 Pantoprazole Sodium Iv 40 Mg Vial IV PUSH 40 mg Q12HR LIDA Administration Pantoprazole Sodium 40 mg 06/21/21 21:00 Pantoprazole 40 Mg Tablet PO Q12HR LIDA Propranolol HCl 10 mg 06/18/21 21:00 06/21/21 08:09 Propranolol Hcl 10 Mg Tablet PO 10 mg Q12HR LIDA Administration Rifaximin 550 mg 06/18/21 21:00 06/21/21 08:08 Rifaximin 550 Mg Tablet PO 550 mg Q12HR LIDA Administration Spironolactone 50 mg 06/21/21 17:00 Spironolactone 50 M
[2021-06-21] MEDS: ALBUMIN HUMAN 25% 25 GM/100 ML 100 ML IVPB (10:06)
--- NOTE | 2021-06-21 10:13 | PM.IMPN ---
Progress Note: A&P Assessment and Plan (1) Acute upper GI bleeding: Code(s): K92.2 - Gastrointestinal hemorrhage, unspecified Status: Acute Assessment and Plan: Secondary to bleeding varices and also coagulopathic with INR elevated - He was started on Protonix and octreotide infusions on 06/15, Octreotide 72 hours finished - Patient has received 2u FFP, vitamin K, transfused 3 unit of packed RBCs - IV Rocephin for SBP prophylaxis 06/15-06/21 d/c per GI given negative cultures - 06/16 underwent EGD which showed reflux esophagitis, nonbleeding esophageal varices, gastritis, Holt's esophagus with dysplasia - On PPI IV q.12 hours - Hemoglobin drop noted, continues to report melena, will monitor (2) Abdominal pain: Code(s): R10.9 - Unspecified abdominal pain Status: Acute Assessment and Plan: Likely secondary to ascites He had paracentesis 06/17 with 5 L of fluid removed. Cell count does not suggest SBP. Cultures negative so far. His white count is normal and he is afebrile Repeat Para ordered per GI (3) Ascites: Code(s): R18.8 - Other ascites Status: Acute Assessment and Plan: He had paracentesis 06/17 with 5 L of fluid removed. Cell count does not suggest SBP, cx negative. Diuretics started per GI, being titrated, currently on Aldactone 50 BID and Lasix 20 mg daily Watch his blood pressure today if he tolerates (4) Alcohol abuse: Code(s): F10.10 - Alcohol abuse, uncomplicated Status: Chronic Assessment and Plan: History of alcohol abuse, patient states he quit about a month ago since his diagnosis of cirrhosis: He states to me he drank a day prior to coming here Although patient claims to quit alcohol I am not sure if his history is reliable. No signs of withdrawal at this time. Will continue to monitor for alcohol withdrawal symptoms (5) Anemia: Code(s): D64.9 - Anemia, unspecified Status: Acute Assessment and Plan: Anemia likely related to post hemorrhagic anemia due to GI bleed -blood transfusion as needed (6) Decompensation of cirrhosis of liver: Code(s): K72.90 - Hepatic failure, unspecified without coma; K74.60 - Unspecified cirrhosis of liver Status: Acute Assessment and Plan: Elevated AST and hyperbilirubinemia -be related to acute GI bleed and melena -will continue to monitor LFTs and bilirubin level which are trending down (7) DVT prophylaxis: Code(s): Z29.9 - Encounter for prophylactic measures, unspecified Status: Acute Assessment and Plan: SCDs (8) Electrolyte abnormality: Code(s): E87.8 - Other disorders of electrolyte and fluid balance, not elsewhere classified Status: Acute Assessment and Plan: Replaced low potassium (9) Hepatic encephalopathy: Code(s): K72.90 - Hepatic failure, unspecified without coma Status: Acute Assessment and Plan: Ammonia level improving Also on lactulose and rifaximin (10) Portal hypertension: Code(s): K76.6 - Portal hypertension Status: Acute Assessment and Plan: Started on propranolol 10 mg p.o. b.i.d. tolerating okay (11) Thrombocytopenia: Code(s): D69.6 - Thrombocytopenia, unspecified Status: Acute Assessment and Plan: Stable (12) Anxiety: Code(s): F41.9 - Anxiety disorder, unspecified Status: Acute Assessment and Plan: He reports generalized anxiety that has been worsening Initiate Buspirone 5 mg BID and titrate, discussed side effects with patient Additional Plan PT OT consult requiring rehabilitation accepted at [facility] and rehab Subjective Date/time seen: 06/21/21 10:13 No major issues overnight. Continues to be anxious. Reports continued melena. Hemodynamically stable. No nausea or vomiting. Abdominal distention stable. Reported a similar episode of auditory hallucinations. This has resolved currently. Review
--- NOTE | 2021-06-21 11:02 | PCOTNOTE ---
Patient on phone x2 attempts and leaving for medical procedure on 3rd attempt.
[2021-06-21 11:11] LABS: Hematocrit 27.3 % (42.0-52.0); Hemoglobin 9.1 g/dL (14.0-18.0); Mean Corpuscular HGB Conc 33.3 g/dl (32-36); Mean Corpuscular Hemoglobin 32.6 pg (26-34); Mean Corpuscular Volume 97.8 fl (80-100); Mean Platelet Volume 9.7 fl (7.4-10.4); Platelet Count Result 139 k/mm3 (150-375); Red Blood Count 2.79 M/mm3 (4.6-6.20); Red Cell Distribution Width 21.7 % (11.5-14.5); White Blood Count 9.2 K/mm3 (4.5-10.0)
[2021-06-21 11:20] LABS: INR 1.7; Prothrombin Time 19.3 Seconds (11.1-14.7)
[2021-06-21 11:27] LABS: Alanine Aminotransferase 38 U/L (4-50); Albumin Level 3.4 g/dL (3.5-5.1); Alkaline Phosphatase 178 U/L (38-126); Anion Gap 10 mmol/L (8-16); Aspartate Amino Transferase 84 U/L (17-59); Bilirubin Direct 0.1 mg/dL (0-0.3); Bilirubin,Total 3.2 mg/dL (0.2-1.3); Blood Urea Nitrogen 8 mg/dL (9-20); Calcium 8.3 mg/dL (8.4-10.2); Carbon Dioxide 22 mmol/L (22-30); Chloride 102 mmol/L (98-107); Estimated CRCL calculation 159 ml/min; Estimated Glomerular Filt Rate > 60; Glucose 105 mg/dL (65-110); Magnesium 1.8 mg/dL (1.6-2.3); Phosphorus 3.7 mg/dL (2.5-4.5); Potassium 3.5 mmol/L (3.4-5.0); Sodium 134 mmol/L (137-145)
[2021-06-21 17:11] LABS: Appearance Peritoneal Fluid Clear (Clear); Color Peritoneal Fluid Yellow (Colorless); Nucleated Cells Peritoneal Flu 148 /uL (0-500); RBC Peritoneal Fluid 316 /uL (0-100000); Source Peritoneal Fluid Peritoneal Fluid
[2021-06-21 17:12] LABS: Lymphocytes Peritoneal Fluid 11 %; Macrophages Peritoneal Fluid 13 %; Mesothelial Cells Peritoneal Fluid 29 %; Monocytes Peritoneal Fluid 34 %; Neutrophils Peritoneal Fluid 13 % (0-25)
[2021-06-21 18:49] LABS: Platelet Estimate Adequate (Adequate)
[2021-06-21] MEDS: PANTOPRAZOLE 40 MG TABLET PO (21:46)
[2021-06-21] MEDS: busPIRone HCL 5 MG TABLET PO (21:46)
[2021-06-22] MEDS: LORazepam INJ (*CRX) 2 MG/ML VIAL 0.5 MG IV PUSH ×3 (02:11→13:10)
[2021-06-22 07:00] LABS: Hematocrit 25.6 % (42.0-52.0); Hemoglobin 8.5 g/dL (14.0-18.0); Mean Corpuscular HGB Conc 33.2 g/dl (32-36); Mean Corpuscular Hemoglobin 31.5 pg (26-34); Mean Corpuscular Volume 94.8 fl (80-100); Mean Platelet Volume 10.3 fl (7.4-10.4); Platelet Count Result 150 k/mm3 (150-375); White Blood Count 9.2 K/mm3 (4.5-10.0)
[2021-06-22 07:13] LABS: Anion Gap 8 mmol/L (8-16); Blood Urea Nitrogen 8 mg/dL (9-20); Calcium 8.1 mg/dL (8.4-10.2); Carbon Dioxide 21 mmol/L (22-30); Chloride 102 mmol/L (98-107); Estimated CRCL calculation 194 ml/min; Estimated Glomerular Filt Rate > 60; Glucose 107 mg/dL (65-110); Potassium 3.6 mmol/L (3.4-5.0); Sodium 131 mmol/L (137-145)
[2021-06-22] MEDS: LACTULOSE 20 GM/30 ML UDC PO ×2 (08:24→11:51)
[2021-06-22 08:25] VITALS: PULSE 82
[2021-06-22] MEDS: PANTOPRAZOLE 40 MG TABLET PO (08:25)
[2021-06-22] MEDS: busPIRone HCL 5 MG TABLET PO (08:25)
[2021-06-22] MEDS: THIAMINE HCL 100 MG TABLET PO (08:25)
[2021-06-22] MEDS: FUROSEMIDE 20 MG TABLET PO (08:25)
[2021-06-22] MEDS: PROPRANOLOL HCL 10 MG TABLET PO (08:25)
[2021-06-22] MEDS: rifAXIMin 550 MG TABLET PO (08:25)
[2021-06-22] MEDS: FOLIC ACID 1 MG TABLET PO (08:25)
[2021-06-22] MEDS: SPIRONOLACTONE 50 MG TABLET PO (08:25)
--- NOTE | 2021-06-22 09:48 | WPDGIPROGNO ---
Subjective Date/time seen: 06/22/21 09:48 Patient is feeling better after paracentesis. No further auditory hallucinations. No nausea, vomiting or hematemesis. No hematochezia, melena or acholic stools. The patient does have some lightheadedness when standing. General: very pleasant patient in no acute distress. HEENT: Head was normocephalic sclerae is clear mouth without masses neck was supple. Heart: Rate rhythm regular without S3 or S4. Lungs: Decreased breath sounds left base. Abdomen: Soft with no guarding or rigidity. Bowel sounds were active. Neurologic: Cranial nerves 2 through 12 intact. No focal defects. No clonus. Musculoskeletal system: Revealed no joint tenderness or swelling no muscle atrophy. Extremities: Reveal no significant edema. Skin: Warm and dry with normal turgor. Mental status: intact. Patient is alert and oriented. Impression: Decreased breath sounds left lung base. May be secondary to effusion or infiltrate. GI bleeding secondary to esophageal varices. Auditory hallucinations unknown etiology. This has presently ceased. Alcoholic cirrhosis with complicating factors: Ascites. Esophageal varices/portal hypertensive gastropathy. 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 Hepatic encephalopathy. Class B erosive esophagitis with possible Holt's esophagus. Alcohol abuse. Tobacco abuse. Recommendation: Continue Protonix q.12 hours orally. Increase Aldactone to 50 b.i.d.. Will check chest x-ray prior to discharge. Consider Neurology evaluation regarding auditory hallucinations. Would continue low-salt diet. Encouraged patient not to drink excessive fluids. Continue Xifaxan. May consider discontinuing lactulose on discharge. Review of Systems Review of Systems: All systems reviewed & are unremarkable except as noted in HPI and below Objective Data Vital Signs Vital Signs: Vital Signs - 24 hr 06/22/21 08:25 Pulse Rate 82 Intake/Output Intake/Output: Intake & Output 06/19/21 06/20/21 06/21/21 06/22/21 23:59 23:59 23:59 23:59 Intake Total 1960 1880 2080 1000 Output Total 850 5000 Balance 1110 1880 -2920 1000 Meds/Results Medications: Active Medications Generic Name Dose Route Start Last Admin Trade Name Freq PRN Reason Stop Dose Admin Buspirone HCl 5 mg 06/21/21 21:00 06/22/21 08:25 Buspirone Hcl 5 Mg Tablet PO 5 mg Q12HR LIDA Administration Folic Acid 1 mg 06/19/21 09:00 06/22/21 08:25 Folic Acid 1 Mg Tablet PO 1 mg DAILY LIDA Administration Furosemide 20 mg 06/20/21 09:00 06/22/21 08:25 Furosemide 20 Mg Tablet PO 20 mg DAILY LIDA Administration Lactulose 20 gm 06/18/21 17:30 06/22/21 08:24 Lactulose 20 Gm/30 Ml Udc PO 20 gm TIDPC LIDA Administration Lorazepam 0.5 mg 06/15/21 12:12 06/22/21 08:31 Lorazepam Inj (*Crx) 2 Mg/Ml Vial IV PUSH 0.5 mg Q4H PRN Administration Anxiety Ondansetron HCl 4 mg 06/15/21 08:13 Ondansetron Inj 4 Mg/2 Ml Vial IV PUSH Q6H PRN Nausea And Vomiting Ondansetron HCl 4 mg 06/18/21 15:45 Ondansetron Hcl Odt 4 Mg Tablet PO Q8H PRN nausea and vomiting Pantoprazole Sodium 40 mg 06/21/21 21:00 06/22/21 08:25 Pantoprazole 40 Mg Tablet PO 40 mg Q12HR LIDA Administration Propranolol HCl 10 mg 06/18/21 21:00 06/22/21 08:25 Propranolol Hcl 10 Mg Tablet PO 10 mg Q12HR LIDA Administration Rifaximin 550 mg 06/18/21 21:00 06/22/21 08:25 Rifaximin 550 Mg Tablet PO 550 mg Q12HR LIDA Administration Spironolactone 50 mg 06/21/21 17:00 06/22/21 08:25 Spironolactone 50 Mg Tablet PO 50 mg BID LIDA Administration Thiamine HCl 100 mg 06/19/21 09:00 06/22/21 08:25 Thiamine Hcl 100 Mg Tablet PO 100 mg DAILY LIDA Administration Radiology Results: ITS Impressions Abdomen X-Ray 06/16/21 06:47 IMPRESSION: 1. Feeding tu
--- NOTE | 2021-06-22 11:26 | PM.DS ---
DS: Admitting Diagnosis Admitting Diagnosis Coffee-ground emesis and melena DS: Discharge Diagnosis Discharge Diagnosis (1) Acute upper GI bleeding: Code(s): K92.2 - Gastrointestinal hemorrhage, unspecified Status: Acute Assessment and Plan: Secondary to bleeding varices and also coagulopathic with INR elevated - He was started on Protonix and octreotide infusions on 06/15, Octreotide 72 hours finished - Patient has received 2u FFP, vitamin K, transfused 3 unit of packed RBCs - IV Rocephin for SBP prophylaxis 06/15-06/21 d/c per GI given negative cultures - 06/16 underwent EGD which showed reflux esophagitis, nonbleeding esophageal varices, gastritis, Holt's esophagus with dysplasia - On PPI IV q.12 hours - Hemoglobin drop noted, continues to report melena, will monitor (2) Abdominal pain: Code(s): R10.9 - Unspecified abdominal pain Status: Acute Assessment and Plan: Likely secondary to ascites He had paracentesis 06/17 with 5 L of fluid removed. Cell count does not suggest SBP. Cultures negative so far. His white count is normal and he is afebrile Repeat Para ordered per GI (3) Ascites: Code(s): R18.8 - Other ascites Status: Acute Assessment and Plan: He had paracentesis 06/17 with 5 L of fluid removed. Cell count does not suggest SBP, cx negative. Diuretics started per GI, being titrated, currently on Aldactone 50 BID and Lasix 20 mg daily Watch his blood pressure today if he tolerates (4) Alcohol abuse: Code(s): F10.10 - Alcohol abuse, uncomplicated Status: Chronic Assessment and Plan: History of alcohol abuse, patient states he quit about a month ago since his diagnosis of cirrhosis: He states to me he drank a day prior to coming here Although patient claims to quit alcohol I am not sure if his history is reliable. No signs of withdrawal at this time. Will continue to monitor for alcohol withdrawal symptoms (5) Anemia: Code(s): D64.9 - Anemia, unspecified Status: Acute Assessment and Plan: Anemia likely related to post hemorrhagic anemia due to GI bleed -blood transfusion as needed (6) Decompensation of cirrhosis of liver: Code(s): K72.90 - Hepatic failure, unspecified without coma; K74.60 - Unspecified cirrhosis of liver Status: Acute Assessment and Plan: Elevated AST and hyperbilirubinemia -be related to acute GI bleed and melena -will continue to monitor LFTs and bilirubin level which are trending down (7) DVT prophylaxis: Code(s): Z29.9 - Encounter for prophylactic measures, unspecified Status: Acute Assessment and Plan: SCDs (8) Electrolyte abnormality: Code(s): E87.8 - Other disorders of electrolyte and fluid balance, not elsewhere classified Status: Acute Assessment and Plan: Replaced low potassium (9) Hepatic encephalopathy: Code(s): K72.90 - Hepatic failure, unspecified without coma Status: Acute Assessment and Plan: Ammonia level improving Also on lactulose and rifaximin (10) Portal hypertension: Code(s): K76.6 - Portal hypertension Status: Acute Assessment and Plan: Started on propranolol 10 mg p.o. b.i.d. tolerating okay (11) Thrombocytopenia: Code(s): D69.6 - Thrombocytopenia, unspecified Status: Acute Assessment and Plan: Stable (12) Anxiety: Code(s): F41.9 - Anxiety disorder, unspecified Status: Acute Assessment and Plan: He reports generalized anxiety that has been worsening Initiate Buspirone 5 mg BID and titrate, discussed side effects with patient DS: Summary Hospital Course Hospital Course: This is a very pleasant 35-year-old gentleman with past medical history of alcohol cirrhosis, Holt's esophagus with esophagitis, chronic anemia, and history of alcohol abuse, who presented to the emergency department on 06/15 with 2 day history coffee-brian
--- NOTE | 2021-06-22 11:28 | PC.NURSE ---
This nurse spoke with Dr. Lui regarding pending discharge to SNF placement. Ok to DC. F/U with Dr. Cat in 2-4 weeks. DC Lactulose prior to DC. Dr. Vargas made aware.
[2021-06-22 12:12] LABS: EDCOVIDSCREEN Negative (Negative)
== END 2021-06-22 13:28 | DRG 280 ==
LOC: ANHED 06:57 → ANHICU 07:51 → ANH3MEDSUR 06-19 17:10
PROVIDERS: Internal Medicine; Internal Medicine Critical Care Medicine; Internal Medicine Gastroenterology; Admitting Provider Internal Medicine; Emergency Provider Emergency Medicine; PCP Emergency Medicine; Visit Provider Internal Medicine Nephrology
PROC: 0DJ08ZZ Inspection of Upper Intestinal Tract, Via Natural or Artificial Opening Endoscopic (ICD-10-PCS; CPT 43235; principal; 2021-06-16 16:00)
DX: K70.31 Alcoholic cirrhosis of liver with ascites (principal); I85.11 Secondary esophageal varices with bleeding; K22.719 Barrett's esophagus with dysplasia, unspecified; K76.6 Portal hypertension; K31.89 Other diseases of stomach and duodenum; K21.00 Gastro-esophageal reflux disease with esophagitis, without bleeding; D73.1 Hypersplenism; D69.59 Other secondary thrombocytopenia; Z20.822 Contact with and (suspected) exposure to COVID-19; K72.90 Hepatic failure, unspecified without coma; D62 Acute posthemorrhagic anemia; E87.2 Acidosis; F10.10 Alcohol abuse, uncomplicated; K70.10 Alcoholic hepatitis without ascites; K29.70 Gastritis, unspecified, without bleeding; D68.4 Acquired coagulation factor deficiency; R44.0 Auditory hallucinations; F41.1 Generalized anxiety disorder; Z87.891 Personal history of nicotine dependence; Z79.899 Other long term (current) drug therapy
CPT/HCPCS: 36415; 36430; 49083; 71046; 74018; 80048; 80053; 80076; 80307; 82140; 83605; 83735; 84100; 85014; 85018; 85025; 85027; 85055; 85060; 85610; 85730; 86850; 86900; 86901; 86920; 87040; 87070; 87075; 87086; 87205; 87426; 89051; 96361; 96374; 96375; 97110; 97116; 97163; 97165; 97530; 97535; 99285; A9270; C9113; C9803; G0379; J0610; J0696; J0780; J2001; J2060; J2354; J2405; J2550; J2704; J3430; J3475; J7030; J7050; J7060; J7120; P9016; P9017; P9047

== ENCOUNTER 2021-07-03 09:34 | Outpatient (CLI) | payer BC, SELFPAY ==
--- NOTE | ~2021-07-03 | US_ITS ---
EXAMINATION: US paracentesis abd w/image DATE: 07/03/2021 10:37 INDICATION: Ascites. TECHNIQUE: The procedure and its risks, benefits, and alternatives were discussed with the patient. P otential risks discussed included bleeding and infection. The skin was prepped and draped in sterile fashion. 1% lidocaine was used for local anesthesia. Under ultrasound guidance, a 5 Fr catheter with trochar was advanced into the ascites in the left lower quadrant. Fluid was aspirated. The catheter w as removed, and a dressing was applied. There were no immediate complications. FINDINGS: Ultrasound images demonstrate ascites and the catheter within the fluid. IMPRESSION: 1. Successful ultrasound-guided paracentesis yielding 4000 mL of clear, yellow fluid. Reviewed, dictated and finalized at location A.
== END 2021-07-03 09:35 | disposition home or self-care (01) ==
LOC: ANHIMG 09:38
PROVIDERS: PCP Internal Medicine; Visit Provider Internal Medicine Gastroenterology
DX: R18.8 Other ascites (principal)
CPT/HCPCS: 49083

== ENCOUNTER 2021-07-17 14:19 | Outpatient (CLI) | payer BC, SELFPAY ==
--- NOTE | ~2021-07-17 | US_ITS ---
EXAMINATION: US abdomen limited DATE: 07/17/2021 10:23 INDICATION: Ascites. TECHNIQUE: Multiple grayscale ultrasound images of the abdomen were obtained. COMPARISON: None FINDINGS: A survey of the 4 quadrants of the abdomen demonstrates a small volume of ascites. IMPRESSION: 1. Small volume of ascites. The patient elected to defer paracentesis until more fluid accumulates. Reviewed, dictated and finalized at location A. IMPRESSION: 1. Small volume of ascites. The patient elected to defer paracentesis until mor e fluid accumulates.
== END 2021-07-17 14:20 | disposition home or self-care (01) ==
LOC: ANHIMG 14:20
PROVIDERS: PCP Internal Medicine; Visit Provider Internal Medicine Gastroenterology
DX: R18.8 Other ascites (principal)
CPT/HCPCS: 76705

== ENCOUNTER 2021-07-30 11:49 | Outpatient (CLI) | payer BC, SELFPAY ==
--- NOTE | ~2021-07-30 | US_ITS ---
EXAMINATION: US abdomen limited DATE: 07/30/2021 15:22 INDICATION: Ascites check TECHNIQUE: Multiple grayscale ultrasound images of the 4 quadrants of the abdomen abdomen were obtain ed for planned paracentesis which was canceled due to absence of ascites. FINDINGS/IMPRESSION: No ascites identified in and abdomen or pelvis. Planned paracentesis was canceled. Reviewed, dictated and finalized at location B.
[2021-07-30 12:59] LABS: Basophils Absolute Auto 0.1 K/mm3 (0.0-0.1); Basophils Percent Auto 1.1 % (0.2-1.2); Eosinophils Absolute Auto 0.4 K/mm3 (0-0.3); Eosinophils Percent Auto 4.9 % (0-4.4); Hematocrit 27.9 % (42.0-52.0); Immature Granulocyte Absolute 0.04 K/mm3 (0.00-0.031); Immature Granulocyte Percent A 0.5 % (0-0.5); Lymphocytes Absolute Auto 1.42 K/mm3 (0.9-3.2); Lymphocytes Percent Auto 19.5 % (18.3-44.2); Mean Corpuscular HGB Conc 32.3 g/dl (32-36); Mean Corpuscular Hemoglobin 31.1 pg (26-34); Mean Corpuscular Volume 96.5 fl (80-100); Mean Platelet Volume 9.7 fl (7.4-10.4); Monocytes Absolute Auto 1.4 K/mm3 (0.1-0.6); Monocytes Percent Auto 18.9 % (2.6-8.5); Neutrophils Percent Auto 55.1 % (45.5-73.1); Platelet Count Result 243 k/mm3 (150-375); Red Blood Count 2.89 M/mm3 (4.6-6.20); Red Cell Distribution Width 18.6 % (11.5-14.5); White Blood Count 7.3 K/mm3 (4.5-10.0)
[2021-07-30 13:06] LABS: INR 1.2; Prothrombin Time 14.8 Seconds (11.1-14.7)
== END 2021-07-30 11:50 | disposition home or self-care (01) ==
PROVIDERS: Radiology Diagnostic Radiology; PCP Internal Medicine; Visit Provider Nurse Practitioner Family
DX: D62 Acute posthemorrhagic anemia (principal); I85.01 Esophageal varices with bleeding
CPT/HCPCS: 36415; 76705; 85025; 85610

== ENCOUNTER 2021-09-24 01:13 | Day surgery (SDC) | payer OTHER, SELFPAY ==
[2021-09-09 11:17] VITALS: BMI 23.4
--- NOTE | 2021-09-24 07:36 | WPDANESEPPF ---
Anes - Initial Pre Proc Eval Procedure: Operation Date: 09/24/21 12:30 Proposed Procedures p Esophagogastroduodenoscopy - Eric Oconnell MD Date/Time: 09/24/21 07:36 Surgeon: Eric Oconnell MD Pre Op Diagnosis: cirrhosis, esophageal varices Patient Data Age: 36 Gender: M Height: 1.7 m Weight: 68 kg Allergies Allergy/AdvReac Type Severity Reaction Status Date / Time peanut Allergy Severe Anaphylaxis Verified 09/24/21 11:16 Home Medications Medication Instructions Recorded Confirmed Type folic acid 1 mg PO DAILY #30 tablet 04/11/21 09/15/21 Rx pantoprazole 40 mg PO Q12HR #60 tablet 04/11/21 09/15/21 Rx thiamine HCl (vitamin B1) 100 mg PO DAILY 04/20/21 09/15/21 History gabapentin 200 mg PO TID 30 Days #180 cap 05/08/21 09/15/21 Rx ondansetron HCl [Zofran] 4 mg PO Q8H PRN #90 tablet 05/08/21 09/15/21 Rx buspirone 5 mg PO Q12HR #60 tablet 06/22/21 09/15/21 Rx propranolol 10 mg PO Q12HR #60 tablet 06/22/21 09/15/21 Rx furosemide 20 mg tablet 60 mg PO QAM 30 Days #90 tablet 08/28/21 09/15/21 Rx tramadol 50 mg tablet 50 mg PO TID PRN 08/28/21 09/15/21 History gabapentin 300 mg PO TID 09/15/21 09/15/21 History lactulose [Enulose] 30 ml PO TID 09/15/21 09/15/21 History melatonin 3 mg PO HS PRN 09/15/21 09/15/21 History mirtazapine 30 mg PO HS 09/15/21 09/15/21 History spironolactone 100 mg PO DAILY 09/15/21 09/15/21 History spironolactone [Aldactone] 50 mg PO QAM 09/15/21 09/15/21 History Patient hx anesthesia problems: none Family hx anesthesia problems: none Results Review: All pre-operative results and documents have been reviewed as part of the pre-operative evaluation. [facility] Past Medical History Medical History (Updated 09/24/21 @ 07:37 by Valente Harmon DO) Acute blood loss anemia Acute on chronic blood loss anemia Alcohol abuse Alcoholic hepatitis Holt's esophagus with esophagitis Cirrhosis Coagulopathy Constipation Decompensation of cirrhosis of liver Elevated liver enzymes Esophageal varices with bleeding Melena Nausea Tobacco abuse Surgical History Surgical History No pertinent past surgical history Family History Family History Mother Liver disease Cirrhosis Grandparent Heart failure Heart attack Social History Social History Social History: The patient stated that he just quit smoking approximately 3 month ago. The patient had started smoking when he was 10 years old. The patient denies any alcohol Since his 1st admission or illicit drugs. The patient states that he drinks 6 pt of alcohol a day on the days that he drinks. He typically drinks 2-3 days a week. The patient is a full code. the patient would also like his father Rigo to be his surrogate. Smoking packs per day: 0.5 Smoking cigarettes per day: 10.0 Years smoked: 18 Smoking pack-years: 9.00 Smoking status: Current every day smoker Tobacco type: cigarettes Smoking end date: 02/06/21 Alcohol intake: former Drinks per week: 14 Substance use: never Substance use type: does not use Other substance usage details: alcohol Last use: April 10 2021 Living arrangements: group home Additional living arrangements comments: Patient that in [place] by himself with no pets Gender identity (if verbalized by the patient): Male Spiritual care concerns: No Anes - Eval Final PreProcedure Day of Procedure 09/24/21 07:36 Patient weight: normal Heart: regular rate and rhythm Lungs: clear to auscultation and normal air movement Airway: Mallampati scale class II Neurological: alert and oriented Last oral intake: >/= 8 hours ASA classification: IV Emergent: no Anesthetic plan: proceed Anesthesia type and monitoring: general GIVS and standard monitoring Results Review:
[2021-09-24] MEDS: LACTATED RINGERS 1,000 ML 150 ML IV CONT (11:14)
[2021-09-24 11:18] VITALS: BP 121/74; PULSE 86; RESP 18; TEMP 36.7; O2SAT 100
--- NOTE | 2021-09-24 11:36 | WPDHPUPDATE1 ---
History and Physical Update Update Date/Time: 09/24/21 11:36 History and Physical has been reviewed, including an updated exam of the patient. There are NO changes in the patient's condition. Risks, benefits, and alternatives have been discussed and questions answered. Patient agrees to proceed with procedure.
[2021-09-24 11:53] VITALS: BP 115/71; PULSE 95; RESP 18; O2SAT 100
[2021-09-24 12:03] VITALS: BP 117/78; PULSE 95; RESP 15; O2SAT 100
[2021-09-24 12:13] VITALS: BP 127/85; PULSE 84; RESP 21; O2SAT 100
== END 2021-09-24 12:22 | disposition home or self-care (01) ==
PROVIDERS: PCP Internal Medicine; Visit Provider Internal Medicine Gastroenterology
PROC: 0DJ08ZZ Inspection of Upper Intestinal Tract, Via Natural or Artificial Opening Endoscopic (ICD-10-PCS; CPT 43235; principal; 2021-09-24 12:30)
DX: K70.30 Alcoholic cirrhosis of liver without ascites (principal); I85.10 Secondary esophageal varices without bleeding; K22.70 Barrett's esophagus without dysplasia; K29.70 Gastritis, unspecified, without bleeding; D63.8 Anemia in other chronic diseases classified elsewhere; F17.210 Nicotine dependence, cigarettes, uncomplicated
CPT/HCPCS: 43244; J2704; J7120

== ENCOUNTER 2021-11-12 00:49 | Day surgery (SDC) | payer OTHER, SELFPAY ==
--- NOTE | 2021-10-31 14:43 | PC.NURSE ---
Patient is from a rehab center. Contacted facility and instructed them to send over med list and medical history. Stated that we will contact them to go over prep instructions and times for arrival once paperwork is received.
[2021-11-04 14:56] VITALS: BMI 33.0
--- NOTE | 2021-11-12 07:32 | WPDANESEPPF ---
Anes - Initial Pre Proc Eval Procedure: Operation Date: 11/12/21 10:00 Proposed Procedures p Esophagogastroduodenoscopy - Eric Oconnell MD Date/Time: 11/12/21 07:32 Surgeon: Eric Oconnell MD Pre Op Diagnosis: esophageal varices Patient Data Age: 36 Gender: M Height: 1.65 m Weight: 90 kg Allergies Allergy/AdvReac Type Severity Reaction Status Date / Time peanut Allergy Severe Anaphylaxis Verified 11/12/21 08:45 Home Medications Medication Instructions Recorded Confirmed Type folic acid 1 mg PO DAILY #30 tablet 04/11/21 11/12/21 Rx pantoprazole 40 mg PO Q12HR #60 tablet 04/11/21 11/12/21 Rx thiamine HCl (vitamin B1) 100 mg PO DAILY 04/20/21 11/12/21 History ondansetron HCl [Zofran] 4 mg PO Q8H PRN #90 tablet 05/08/21 11/12/21 Rx buspirone 5 mg PO Q12HR #60 tablet 06/22/21 11/12/21 Rx propranolol 10 mg PO Q12HR #60 tablet 06/22/21 11/12/21 Rx furosemide 20 mg tablet 60 mg PO QAM 30 Days #90 tablet 08/28/21 11/12/21 Rx tramadol 50 mg tablet 50 mg PO TID PRN 08/28/21 11/12/21 History lactulose [Enulose] 30 ml PO TID 09/15/21 11/12/21 History melatonin 3 mg PO HS PRN 09/15/21 11/12/21 History mirtazapine 30 mg PO HS 09/15/21 11/12/21 History spironolactone 100 mg PO DAILY 09/15/21 11/12/21 History spironolactone [Aldactone] 50 mg PO QAM 09/15/21 11/12/21 History pregabalin 75 mg PO BID 11/11/21 11/12/21 History ferrous sulfate 325 mg PO DAILY 11/12/21 11/12/21 History gabapentin 100 mg PO TID 11/12/21 11/12/21 History gabapentin 300 mg PO TID 11/12/21 11/12/21 History rifaximin [Xifaxan] 550 mg PO DAILY 11/12/21 11/12/21 History Patient hx anesthesia problems: none Family hx anesthesia problems: none Results Review: All pre-operative results and documents have been reviewed as part of the pre-operative evaluation. [facility] Past Medical History Medical History (Updated 09/24/21 @ 07:37 by Valente Harmon DO) Acute blood loss anemia Acute on chronic blood loss anemia Alcohol abuse Alcoholic hepatitis Holt's esophagus with esophagitis Cirrhosis Coagulopathy Constipation Decompensation of cirrhosis of liver Elevated liver enzymes Esophageal varices with bleeding Melena Nausea Tobacco abuse Surgical History Surgical History No pertinent past surgical history Family History Family History Mother Liver disease Cirrhosis Grandparent Heart failure Heart attack Social History Social History Social History: The patient stated that he just quit smoking approximately 3 month ago. The patient had started smoking when he was 10 years old. The patient denies any alcohol Since his 1st admission or illicit drugs. The patient states that he drinks 6 pt of alcohol a day on the days that he drinks. He typically drinks 2-3 days a week. The patient is a full code. the patient would also like his father Rigo to be his surrogate. Smoking packs per day: 0.5 Smoking cigarettes per day: 10.0 Years smoked: 18 Smoking pack-years: 9.00 Smoking status: Current some day smoker Tobacco type: cigarettes Smoking end date: 02/06/21 Alcohol intake: former Drinks per week: 14 Substance use: never Substance use type: does not use Other substance usage details: alcohol Last use: April 10 2021 Living arrangements: assisted living Additional living arrangements comments: Patient that in [place] by himself with no pets Gender identity (if verbalized by the patient): Male Spiritual care concerns: No Anes - Eval Final PreProcedure Day of Procedure 11/12/21 07:32 Patient weight: obese Heart: regular rate and rhythm Lungs: clear to auscultation and normal air movement Airway: Mallampati scale class II Neurological: alert and oriented Last oral intake: >/= 8 hours
[2021-11-12 08:34] VITALS: BP 126/78; PULSE 77; RESP 18; TEMP 36.9; O2SAT 97; BMI 32.3
[2021-11-12] MEDS: LACTATED RINGERS 1,000 ML 150 ML IV CONT (08:56)
--- NOTE | 2021-11-12 09:46 | PM.HPGS ---
History of Present Illness History of Present Illness Consent: Risks, benefits, and alternatives have been discussed and questions answered. Patient agrees to proceed with procedure. Chief complaint: esophageal varices Narrative: Lukas Diaz is a 36 year old male with previous gib due to EV s/p banding, here to reassess. Denies recent bleeding. He is former alcoholic and staying in a local [facility], he has been abstinent for several months and just recently saw his tube splicer in [facility]. Review of Systems Constitutional: Constitutional: Denies headache(s) and Denies weakness Eyes: Eyes: Denies blurry vision ENT: Reports Normal hearing present, Denies headache(s) and Denies neck pain Cardiovascular: Cardiovascular: Denies chest pain and Denies dyspnea Respiratory: Respiratory: Denies dyspnea Gastrointestinal: Gastrointestinal: Reports no additional gastrointestinal complaints Genitourinary: Genitourinary: Denies dysuria Musculoskeletal: Musculoskeletal: Denies neck pain Integumentary/Breasts: Skin/Breast: Denies dry skin Neurologic: Reports Normal hearing present, Denies headache(s) and Denies weakness Psychiatric: Psychiatric: Denies anxiety Endocrine: Endocrine: Denies change in body appearance Hematologic/Lymphatic: Hematologic/Lymphatic: Denies easy bleeding Allergic/Immunologic: Allergic/Immunologic: Denies urticaria [facility] Past Medical History Medical History (Updated 09/24/21 @ 07:37 by Valenet Harmon DO) Acute blood loss anemia Acute on chronic blood loss anemia Alcohol abuse Alcoholic hepatitis Holt's esophagus with esophagitis Cirrhosis Coagulopathy Constipation Decompensation of cirrhosis of liver Elevated liver enzymes Esophageal varices with bleeding Melena Nausea Tobacco abuse Surgical History Surgical History No pertinent past surgical history Family History Family History Mother Liver disease Cirrhosis Grandparent Heart failure Heart attack Social History Social History Social History: The patient stated that he just quit smoking approximately 3 month ago. The patient had started smoking when he was 10 years old. The patient denies any alcohol Since his 1st admission or illicit drugs. The patient states that he drinks 6 pt of alcohol a day on the days that he drinks. He typically drinks 2-3 days a week. The patient is a full code. the patient would also like his father Rigo to be his surrogate. Smoking packs per day: 0.5 Smoking cigarettes per day: 10.0 Years smoked: 18 Smoking pack-years: 9.00 Smoking status: Current some day smoker Tobacco type: cigarettes Smoking end date: 02/06/21 Alcohol intake: former Drinks per week: 14 Substance use: never Substance use type: does not use Other substance usage details: alcohol Last use: April 10 2021 Living arrangements: assisted living Additional living arrangements comments: Patient that in [facility] by himself with no pets Gender identity (if verbalized by the patient): Male Spiritual care concerns: No Meds Home Medications and Allergies Home Medications Medication Instructions Recorded Confirmed Type folic acid 1 mg PO DAILY #30 tablet 04/11/21 11/12/21 Rx pantoprazole 40 mg PO Q12HR #60 tablet 04/11/21 11/12/21 Rx thiamine HCl (vitamin B1) 100 mg PO DAILY 04/20/21 11/12/21 History ondansetron HCl [Zofran] 4 mg PO Q8H PRN #90 tablet 05/08/21 11/12/21 Rx buspirone 5 mg PO Q12HR #60 tablet 06/22/21 11/12/21 Rx propranolol 10 mg PO Q12HR #60 tablet 06/22/21 11/12/21 Rx furosemide 20 mg tablet 60 mg PO QAM 30 Days #90 tablet 08/28/21 11/12/21 Rx tramadol 50 mg tablet 50 mg PO TID PRN 08/28/21 11/12/21 History lactulose [Enulose] 30 ml PO TID 09/15/21 11/12/21 History melato
[2021-11-12 10:04] VITALS: BP 99/63; PULSE 85; RESP 16; O2SAT 98
[2021-11-12 10:14] VITALS: BP 113/81; PULSE 77; RESP 16; O2SAT 100
[2021-11-12 10:24] VITALS: BP 107/41; PULSE 74; RESP 18; O2SAT 99
== END 2021-11-12 10:43 | disposition home or self-care (01) ==
PROVIDERS: PCP Internal Medicine; Visit Provider Internal Medicine Gastroenterology
PROC: 0DJ08ZZ Inspection of Upper Intestinal Tract, Via Natural or Artificial Opening Endoscopic (ICD-10-PCS; CPT 43235; principal; 2021-11-12 10:00)
DX: Z09 Encounter for follow-up examination after completed treatment for conditions other than malignant neoplasm (principal); K74.60 Unspecified cirrhosis of liver; K22.70 Barrett's esophagus without dysplasia; K29.70 Gastritis, unspecified, without bleeding; D62 Acute posthemorrhagic anemia; K72.90 Hepatic failure, unspecified without coma; F10.21 Alcohol dependence, in remission; Z87.891 Personal history of nicotine dependence
CPT/HCPCS: 43235; J2704; J7120

== ENCOUNTER 2021-12-17 17:23 | Emergency (ER) | payer OTHER, SELFPAY ==
--- NOTE | ~2021-12-17 | XR_ITS ---
EXAMINATION: XR hip LT 2V w AP pelvis EXAM DATE: 12/17/2021 18:25 INDICATION: Left Hip Pain, External Rotation, Fall 3 Days Ago. TECHNIQUE: Left hip frontal, crosstable lateral projections for interpretation. Frontal projection pe lvis. There is no prior study for comparison. FINDINGS: Acute closed posttraumatic left hip transcervical femoral neck fracture, impaction and some superior displacement. Pelvic ring appears intact. IMPRESSION: Left hip transcervical femoral neck fracture. Reviewed, dictated and finalized at location . S CUTTER
--- NOTE | ~2021-12-17 | CT_ITS ---
EXAMINATION: CT brain wo [facility] EXAM DATE: 12/17/2021 21:06 INDICATION: Fall. Left hip fracture. TECHNIQUE: Spiral CT of the head was performed without contrast. Axial, coronal and sagittal images were reviewed. The dose-length product (DLP) for this examination was 605.33 mGy-cm. The exposure w as tailored according to patient size, and iterative reconstruction (ASIR) was used as additional dos e reduction technique. There is no prior study for comparison. FINDINGS: There is no acute intraparenchymal hemorrhage. No evidence of intraparenchymal brain mass lesion. No evidence of acute infarction. There is no mass effect or midline shift. The ventricles are normal in size. There are no extra-axial collections. There are no acute calvarial fractures. T he orbits are unremarkable. Soft tissue is unremarkable. There is mild right maxillary sinus mucope riosteal thickening. IMPRESSION: No acute intracranial findings. Reviewed, dictated and finalized at location . K DISPATCHER
--- NOTE | ~2021-12-17 | XR_ITS ---
EXAMINATION: XR knee LT 3V EXAM DATE: 12/17/2021 18:24 INDICATION: Left Knee Pain, Fall 3 Days Ago, Swelling TECHNIQUE: Left knee lateral, frontal AP, frontal PA tunnel, sunrise projections. Comparison is made to prior examination from 05/07/2021. FINDINGS: There is a band of sclerosis along the medial half of the proximal left tibial metaphysis w hich was not present on previous examination. Appearance is most consistent with a subacute, healing fracture. No joint effusion, no acute fracture line identified. There is no subcutaneous gas. The sof t tissue is unremarkable. There are no radiopaque foreign bodies. IMPRESSION: Left proximal tibial metaphyseal band of sclerosis, most likely a subacute healing fractu re (stress fracture?). Reviewed, dictated and finalized at location . OMER SERVICE ASSISTANT IMPRESSION: Left proximal tibial metaphyseal band of sclerosis, most likely a s ubacute healing fracture (stress fracture?).
--- NOTE | ~2021-12-17 | XR_ITS ---
EXAMINATION: XR chest 1V EXAM DATE: 12/17/2021 18:24 INDICATION: Acute left hip fracture. TECHNIQUE: Frontal and lateral projections of the chest obtained and reviewed. Comparison is made to prior examination from 06/22/2021. FINDINGS: Mild cardiomegaly. The lungs are clear. There are no pleural effusions. The cardiomedias tinal silhouette is within normal limits. There is no pneumothorax suspected. The bones and soft ti ssues are unremarkable. IMPRESSION: Mild cardiomegaly. Reviewed, dictated and finalized at location G. PIT QUARRY SUPERVISOR IMPRESSION: Mild cardiomegaly.
[2021-12-17 17:28] VITALS: BP 164/96; PULSE 100; RESP 18; TEMP 36.8; O2SAT 100
--- NOTE | 2021-12-17 18:00 | ED.FALL ---
HPI - Fall General Chief Complaint: Fall <Lima Hernadnez PA-C - Last Filed: 12/17/21 20:40> Stated Complaint: fall/knee pain <Lima Hernandez PA-C - Last Filed: 12/17/21 20:40> Time Seen by Provider: 12/17/21 17:28 <Lima Hernandez PA-C - Last Filed: 12/17/21 20:40> Source: patient <ZANE Rodriguez Last Filed: 12/17/21 20:40> Mode of arrival: EMS <ZANE Rodriguez Last Filed: 12/17/21 20:40> Limitations: no limitations <Lima Hernandez PA-C - Last Filed: 12/17/21 20:40> History of Present Illness HPI Narrative: This is a 36 year old male that presents to the ER for psychiatric evaluation. Reports he just witnessed his girlfriend of an overdose today. Reports depression and homicidal ideations. Denies suicidal ideations. Also reports the last couple of days he has had left hip pain. Unsure of any certain injury or trauma. Reports he thinks he may have slipped and fell on the hip at some point. The pain is worse with movement and relieved with rest. Reports the pain radiates into his knee. He has been having to use a wheelchair to get around. Reports decreased range of motion in the leg due to pain. He was living in a nursing facility due to weakness from his liver disease up until about a week ago. He was supposed to have home health arranged, but has not done this yet. Denies fever, back pain, or numbness. <Lima Hernandez PA-C - Last Filed: 12/17/21 20:40> Related Data Allergies/Adverse Reactions: Allergies Allergy/AdvReac Type Severity Reaction Status Date / Time No Known Allergies Allergy Verified 12/17/21 17:34 <ZANE Rodriguez Last Filed: 12/17/21 20:40> Review of Systems Review of Systems: CONSTITUTIONAL: Denies fever, SKIN: Denies rash MUSCULOSKELETAL: Reports joint pain and myalgia. Denies back pain NEUROLOGIC: Reports weakness. Denies numbness <Lima Hernandez PA-C - Last Filed: 12/17/21 20:40> All systems reviewed & are unremarkable except as noted in HPI and below <Lima Hernandez PA-C - Last Filed: 12/17/21 20:40> PMFSH Past Medical History Medical History: Medical History History of alcoholic hepatitis <Lima Hernandez PA-C - Last Filed: 12/17/21 20:40> Social History Social History: Social History Alcohol intake: former <Lima Hernandez PA-C - Last Filed: 12/17/21 20:40> Exam Narrative: GENERAL: Well-appearing, well-nourished, and in no acute distress. HEAD: Normocephalic, atraumatic. EYES: EOMI. CHEST: Clear to auscultation. No respiratory distress. No wheezes rales or rhonchi HEART: Regular rate and rhythm. No murmur heard. Normal peripheral pulses. ABDOMEN: Soft, nontender, nondistended, normal active bowel sounds. EXTREMITIES: Decreased active ROM in the left lower extremity due to pain. No edema. Normal DP pulses. Normal sensation. SKIN: Warm, dry, no rash. NEURO: No focal deficits. Alert and oriented x3. PSYCH: Normal mood and affect <Lima Hernandez PA-C - Last Filed: 12/17/21 20:40> Course COMBAT SYSTEMS OFFICER/PA Physician Supervision Pt seen and examined, vss, nad, RRR, ctab, soft non tender, not distended, ext rotation of left leg, shortening of leg, pain on palpation of the left hip, neurovascular intact, awake and oriented x3. Agree with current plan and treatment. <Miguelito Buitrago MD - Last Filed: 12/17/21 20:46> Consultations Consultation #1: Spoke with Dr. Sepulveda reports patient requires higher level of care at trauma center. <Lima Hernandez PA-C - Last Filed: 12/17/21 20:40> Date: 12/17/21 <Lima Hernandez PA-C - Last Filed: 12/17/21 20:40> Time: 20:00 <Lima Hernandez PA-C - Last Filed: 12/17/21 20:40> Consultation #2: Dr. Perez accepts transfer to [facility] ER <Lima Hernandez PA-C - Last Filed: 12/17/21 20:40> Date:
--- NOTE | 2021-12-17 18:26 | PC.NURSE ---
Patient asked for urine sample at this time, patient will attempt and declines straight cath.
--- NOTE | 2021-12-17 18:31 | PC.NURSE ---
[facility] called due to patient being past patient. [facility] states that they will need a referral for patient to return and that he will not be able to be admitting until tomorrow morning. Ericka @ [facility] [phone]
[2021-12-17] MEDS: traMADol HCL (*CRX) 50 MG TABLET PO (18:43)
[2021-12-17 18:44] LABS: Basophils Percent Auto 0.2 % (0.2-1.2); Eosinophils Absolute Auto 0.1 K/mm3 (0-0.3); Eosinophils Percent Auto 0.8 % (0-4.4); Hematocrit 40.4 % (42.0-52.0); Immature Granulocyte Absolute 0.05 K/mm3 (0.00-0.031); Immature Granulocyte Percent A 0.4 % (0-0.5); Lymphocytes Absolute Auto 0.82 K/mm3 (0.9-3.2); Lymphocytes Percent Auto 7.3 % (18.3-44.2); Mean Corpuscular HGB Conc 34.7 g/dl (32-36); Mean Corpuscular Hemoglobin 31.2 pg (26-34); Mean Platelet Volume 9.1 fl (7.4-10.4); Monocytes Absolute Auto 1.7 K/mm3 (0.1-0.6); Monocytes Percent Auto 14.9 % (2.6-8.5); Neutrophils Absolute Auto 8.7 K/mm3 (1.3-6.7); Neutrophils Percent Auto 76.4 % (45.5-73.1); Platelet Count Result 182 k/mm3 (150-375); Red Blood Count 4.49 M/mm3 (4.6-6.20); Red Cell Distribution Width 16.3 % (11.5-14.5); White Blood Count 11.3 K/mm3 (4.5-10.0)
[2021-12-17 18:57] LABS: Ethanol < 10 mg/dL (<10)
[2021-12-17 19:06] LABS: Alanine Aminotransferase 83 U/L (4-50); Alkaline Phosphatase 240 U/L (38-126); Anion Gap 8 mmol/L (8-16); Aspartate Amino Transferase 162 U/L (17-59); Bilirubin,Total 1.4 mg/dL (0.2-1.3); Blood Urea Nitrogen 12 mg/dL (9-20); Carbon Dioxide 27 mmol/L (22-30); Chloride 94 mmol/L (98-107); Estimated CRCL calculation 192 ml/min; Estimated Glomerular Filt Rate > 60; Glucose 112 mg/dL (65-110); Potassium 4.2 mmol/L (3.4-5.0); Sodium 129 mmol/L (137-145)
--- NOTE | 2021-12-17 19:46 | ECG_ITS ---
Measurements Intervals [place] Rate: 96 P: 59 KS: 120 QRS: 8 QRSD: 97 T: 27 QT: 340 QTc: 431 Interpretive Statements SINUS RHYTHM BASELINE ARTIFACT- I, II, AVR, AVL NORMAL ECG Electronically Signed On 12-18-2021 5:47:01 AUTOMOBILE LIGHTS ASSEMBLER by Carl Fitzgerald D.O.
[2021-12-17 19:52] LABS: Add Urine Microscopic? YES; Appearance Urine Clear (Clear); Bilirubin Urine Negative (Negative); Blood Urine Negative (Negative); Color Urine Amber (Yellow); Glucose Urine UA Negative (Negative); Ketones Urine Trace mg/dL (Negative); Leukocyte Esterase Ur Negative LEU/UL (Negative); Mucus Urine Few /lpf; Nitrate Urine Negative (Negative); Protein Urine 1+ mg/dL (Negative); RBC Urine 0-2 /hpf (0-2); Squamous Epithelial Cell Urine Rare /hpf (Few); WBC Urine 0-3 /hpf
--- NOTE | 2021-12-17 20:05 | PC.NURSE ---
Assumed care of pt here for left hip pain. Pt found to have femoral neck fracture. LLE shortened and externally rotated. Left pedal pulse easily palpable, cap refill <2 seconds. Pt lying supine. A&Ox4. RN asked patient about the context of his fall. Pt states he does not remember when he fell, how he fell, or if he fell. RN asked if someone witnessed him falling and pt stated no . Pt reports he is assuming that he fell, because he doesn't know how else he would have injured it. Pt has call light in reach, resting in NAD currently. Waiting consult to determine admission vs transfer. Pt updated.
[2021-12-17 20:27] LABS: SARS-CoV-2 RNA PCR Negative
--- NOTE | 2021-12-17 20:39 | PM.IMHP ---
H&P: HPI History of Present Illness Date/Time: 12/17/21 20:39 Chief Complaint: Left hip pain Narrative: 36 years old male with past medical history of alcoholic liver disease Alcohol abuse presented to the hospital with left hip pain patient had a fall 3 days ago patient unsure if he had hit his head he is complaining of left hip pain radiating to the knee patient has been having to use wheelchair to get around at the ER patient was found to have left hip fracture healed left tibia fracture admitted for further evaluation and treatment also patient has abnormal LFT probable related to liver cirrhosis secondary to chronic alcoholism patient stated last drink was 3 days ago also patient has just witnessed his care friend of overdose today patient reports depression and possible homicidal ideation per ER denies homicidal ideation Review of Systems Review of Systems: All systems reviewed & are unremarkable except as noted in HPI and below PMFSH Past Medical History Medical History History of alcoholic hepatitis Social History Social History Alcohol intake: former Meds Home Medications and Allergies Allergies Allergy/AdvReac Type Severity Reaction Status Date / Time No Known Allergies Allergy Verified 12/17/21 17:34 Vital Signs Vital Signs - 24 hr 12/17/21 17:28 Temperature 98.2 F Pulse Rate 100 Respiratory Rate 18 Blood Pressure 164/96 H Pulse Oximetry 100 Exam Const: General: in distress HENMT: Mouth: Yes moist mucous membranes Eyes: Sclera: scleral abnormality Neck: Neck: no JVD Resp: Auscultation: clear to auscultation bilaterally Cardio: Rate: regular rate Rhythm: regular rhythm GI: Inspection: distended GI Palp: Yes Soft to palpation Skin: General skin exam: normal color Neuro: Cognition (Neuro): normal cognition Speech: normal speech Motor exam (neuro): Normal motor muscle tone present throughout Psych: Thought content: Yes Depressive thoughts present H&P: Results Labs Labs: Short CBC 12/17/21 Range/Units 18:35 WBC 11.3 H (4.5-10.0) K/mm3 Hgb 14.0 (14.0-18.0) g/dL Hct 40.4 L (42.0-52.0) % Plt Count 182 (150-375) k/mm3 BMP 12/17/21 18:35 Sodium 129 L Potassium 4.2 Chloride 94 L Carbon Dioxide 27 BUN 12 Creatinine 0.40 L Glucose 112 H Calcium 9.0 Liver Function 12/17/21 Range/Units 18:35 Total Bilirubin 1.4 H (0.2-1.3) mg/dL AST 162 H (17-59) U/L ALT 83 H (4-50) U/L Alkaline Phosphatase 240 H (38-126) U/L Albumin 4.0 (3.5-5.1) g/dL Urine 12/17/21 Range/Units 19:40 Urine Color Ella (Yellow) Urine Appearance Clear (Clear) Urine pH 5.0 (5.0-9.0) Ur Specific [place] 1.030 (1.001-1.035) Urine Protein 1+ H (Negative) mg/dL Urine Glucose (UA) Negative (Negative) mg/dL Assessment and Plan Assessment and plan (1) Closed displaced fracture of left femoral neck: Code(s): S72.002A - Fracture of unspecified part of neck of left femur, initial encounter for closed fracture Status: Acute Assessment and Plan: Orthopedic consult Pending echo Check troponin Plan for surgical intervention in a.m. (2) Alcoholic hepatitis: Code(s): K70.10 - Alcoholic hepatitis without ascites Status: Acute Assessment and Plan: Avoid hepatotoxic medication GI consult (3) Depression: Code(s): F32.A - Depression, unspecified Status: Acute Assessment and Plan: Psych consult (4) Alcohol abuse: Code(s): F10.10 - Alcohol abuse, uncomplicated Status: Acute Assessment and Plan: Alcohol withdrawal protocol (5) Homicidal behavior: Code(s): R45.850 - Homicidal ideations Status: Acute Assessment and Plan: Psych consult
[2021-12-17 20:56] LABS: Partial Thromboplastin Time 39.3 SECONDS (22.3-36.8)
[2021-12-17 20:57] LABS: Barbiturate Screen Urine Negative (Negative); Benzodiazepines Screen Urine Negative (Negative)
[2021-12-17 20:58] LABS: Cannabinoid Screen Urine Positive (Negative); Cocaine Screen Urine Negative (Negative); Methadone Screen Urine Negative (Negative); Opiate Screen Urine Negative (Negative); Phencyclidine Screen Urine Negative (Negative)
[2021-12-17 21:01] LABS: INR 1.2; Prothrombin Time 14.8 Seconds (11.1-14.7)
[2021-12-17 21:14] LABS: Magnesium 2.3 mg/dL (1.6-2.3)
[2021-12-17 21:22] VITALS: BP 169/98; PULSE 104; RESP 15; TEMP 36.8; O2SAT 99
[2021-12-17 21:24] LABS: Hemoglobin A1C 5.3 % (<5.7)
[2021-12-17 21:26] LABS: Amphetamine Screen Urine Positive (Negative)
[2021-12-17 21:31] LABS: Free T4 Free Thyroxine 1.98 ng/mL (0.78-2.19)
== END 2021-12-17 21:48 | disposition short-term general hospital (02) ==
PROVIDERS: Internal Medicine; Physician Assistant; Emergency Provider Emergency Medicine; PCP Internal Medicine
DX: S72.032A Displaced midcervical fracture of left femur, initial encounter for closed fracture (principal); K70.10 Alcoholic hepatitis without ascites; F32.A Depression, unspecified; F10.10 Alcohol abuse, uncomplicated; R45.850 Homicidal ideations; Z20.822 Contact with and (suspected) exposure to COVID-19; I51.7 Cardiomegaly; Y90.0 Blood alcohol level of less than 20 mg/100 ml; W01.0XXA Fall on same level from slipping, tripping and stumbling without subsequent striking against object, initial encounter
CPT/HCPCS: 36415; 70450; 71045; 73502; 73562; 80053; 80307; 81001; 83036; 83735; 84439; 84443; 85025; 85610; 85730; 93005; 99285; A9270; C9803; U0003; U0005

== ENCOUNTER 2022-02-22 23:46 | Emergency (ER) | payer OTHER, SELFPAY ==
--- NOTE | ~2022-02-22 | XR_ITS ---
EXAMINATION: XR hip LT 2V w AP pelvis DATE: 02/23/2022 00:55 INDICATION: Left hip injury with untreated vertebral fracture TECHNIQUE: Anteroposterior view of the pelvis and anteroposterior and cross-table lateral views of th e left hip were obtained. COMPARISON: 12/17/2021 FINDINGS: Chronic nonunited fracture at the left femoral neck. Persistent 4 cm proximal migration of the distal fragment. Progressive osteolysis along the femoral head side of the fracture plane which now demonst rates a smoothly curved corticated margin. Left femoral head remains normally centered in the left ac etabulum. Bilateral hip and sacroiliac joint spaces appear relatively preserved. No acute fractures i dentified. There are some calcific debris along the inferior margin of the left hip joint space. Soft tissues are otherwise unremarkable. IMPRESSION: 1. Chronic nonunited fracture of the left femoral neck with persistent proximal migration of the dist al fragment and progressive osteolysis of the femoral head fragment. Reviewed, dictated and finalized at location A. IMPRESSION: 1. Chronic nonunited fracture of the left femoral neck with persistent proximal migration of the distal fragment and progressive osteolysis of the femoral hea d fragment.
[2022-02-22 23:40] VITALS: BP 130/80; PULSE 71; RESP 18; TEMP 36.8; O2SAT 97
[2022-02-23] MEDS: MORPHINE SULFATE (*CRX) 4 MG/ML INJ IM (00:26)
--- NOTE | 2022-02-23 00:55 | ED.LOWEXIN ---
HPI - Extremity Injury (Lower) General Chief Complaint: Extremity Injury, Lower Stated Complaint: chronic left hip pain and hip fx Time Seen by Provider: 02/23/22 00:04 History of Present Illness HPI Narrative: Patient is a 36-year-old male who presents ER with left-sided hip pain. Reports chronic pain due to fracture on that side. Patient had a cervical neck fracture and November 2021. He was seen at [facility] and evaluated. They initially thought about placing a pin but then opted against it. They told him he may get a hip replacement in June 2022. Reports he has been in a care home bearing weight on his right leg and transfers to a wheelchair to get around. 9 days ago while transferring he put his left leg down on the wet floor and slipped striking his left hip on a metal bar. He did not fall and strike the ground. He reports he has had progressive aching and discomfort in left hip since then. No new numbness or tingling. No additional injuries or concerns. Related Data Home Medications Medication Instructions Recorded Confirmed thiamine HCl (vitamin B1) 100 mg PO DAILY 04/20/21 01/22/22 tramadol 50 mg tablet 50 mg PO TID PRN 08/28/21 01/22/22 lactulose [Enulose] 30 ml PO TID 09/15/21 01/22/22 melatonin 3 mg PO HS PRN 09/15/21 01/22/22 mirtazapine 30 mg PO HS 09/15/21 01/22/22 spironolactone 100 mg PO DAILY 09/15/21 01/22/22 spironolactone [Aldactone] 50 mg PO QAM 09/15/21 01/22/22 pregabalin 75 mg PO BID 11/11/21 01/22/22 ferrous sulfate 325 mg PO DAILY 11/12/21 01/22/22 gabapentin 100 mg PO TID 11/12/21 01/22/22 gabapentin 300 mg PO TID 11/12/21 01/22/22 rifaximin [Xifaxan] 550 mg PO DAILY 11/12/21 01/22/22 baclofen 10 mg tablet 10 mg PO DAILY 01/22/22 01/22/22 Allergies Allergy/AdvReac Type Severity Reaction Status Date / Time peanut Allergy Severe Anaphylaxis Verified 01/22/22 09:00 mushroom AdvReac Unknown Verified 02/22/22 23:51 Review of Systems Review of Systems: All systems reviewed & are unremarkable except as noted in HPI and below Constitutional: Constitutional: Denies chills, Denies fever(s) and Denies weakness ENT: Denies nasal congestion and Denies sore throat Musculoskeletal: Musculoskeletal: Reports arthralgias and Denies joint swelling Neurologic: Denies syncope, Denies focal weakness and Denies numbness PMFSH Past Medical History Medical History (Updated 02/23/22 @ 02:16 by Howard Huntley MD) Acute blood loss anemia Acute on chronic blood loss anemia Alcohol abuse Alcoholic hepatitis Anorexia Holt's esophagus with esophagitis Blood in stool Cirrhosis Coagulopathy Constipation Decompensation of cirrhosis of liver Elevated liver enzymes Esophageal varices with bleeding Hip fracture History of alcoholic hepatitis Melena Nausea Tobacco abuse Surgical History Surgical History No pertinent past surgical history Family History Family History Mother Liver disease Cirrhosis Grandparent Heart failure Heart attack Social History Social History Social History: The patient stated that he just quit smoking approximately 3 month ago. The patient had started smoking when he was 10 years old. The patient denies any alcohol Since his 1st admission or illicit drugs. The patient states that he drinks 6 pt of alcohol a day on the days that he drinks. He typically drinks 2-3 days a week. The patient is a full code. the patient would also like his father Rigo to be his surrogate. Smoking packs per day: 0.5 Smoking cigarettes per day: 10.0 Years smoked: 18 Smoking pack-years: 9.00 Tobacco type: cigarettes Smoking end date: 02/06/21 Alcohol intake: former Drinks per week: 14 Substance use: never Substance use type: does not use Other substance usage detail
[2022-02-23 02:10] VITALS: BP 119/78; PULSE 67; RESP 16; O2SAT 95
== END 2022-02-23 02:50 ==
PROVIDERS: Emergency Provider Emergency Medicine; PCP Internal Medicine
DX: S72.002A Fracture of unspecified part of neck of left femur, initial encounter for closed fracture (principal); Z79.899 Other long term (current) drug therapy; Z91.010 Allergy to peanuts; Z91.018 Allergy to other foods; Z86.2 Personal history of diseases of the blood and blood-forming organs and certain disorders involving the immune mechanism; Z86.19 Personal history of other infectious and parasitic diseases; Z87.19 Personal history of other diseases of the digestive system; Z87.891 Personal history of nicotine dependence; W01.198A Fall on same level from slipping, tripping and stumbling with subsequent striking against other object, initial encounter
CPT/HCPCS: 73502; 96372; 99283; J2270

== ENCOUNTER 2022-05-15 23:49 | Inpatient (IN) | payer OTHER, SELFPAY ==
--- NOTE | ~2022-05-15 | US_ITS ---
EXAMINATION: US abdomen limited DATE: 05/18/2022 15:33 INDICATION: Abdominal pain. TECHNIQUE: Multiple grayscale and Doppler ultrasound images of the abdomen were obtained. COMPARISON: None FINDINGS: Survey of all 4 quadrants of the abdomen demonstrates no ascites and the planned thoracentesis was ca nceled. IMPRESSION: 1. No ascites. Reviewed, dictated and finalized at location A. IMPRESSION: 1. No ascites.
[2022-05-15 23:52] VITALS: BP 130/88; PULSE 137; RESP 22; TEMP 37.1; O2SAT 100
[2022-05-15 23:56] VITALS: PULSE 141; RESP 24; O2SAT 99
[2022-05-16] VITALS (24 sets, daily range): BP systolic 104–144; BP diastolic 58–91; PULSE 85–157; RESP 14–27; TEMP 36.4–36.8; O2SAT 94–100; BMI 25.5
--- NOTE | 2022-05-16 00:17 | ED.ALCOHOL ---
HPI - Alcohol General Chief Complaint: Alcohol Stated Complaint: ETOH WITHDRAWALS History of Present Illness HPI narrative: 36-year-old male presents the emergency room for evaluation of alcohol withdrawal symptoms. Patient admits to heavy alcohol use daily for several months. He admits that his last alcoholic drink was approximately 10-12 hours prior to arrival. Currently, patient is complaining of nausea, abdominal pain, dry mouth, and headache. Patient endorses history of delirium tremens, and seizure-like activity when he abruptly discontinues alcohol use. Related Data Home Medications Medication Instructions Recorded Confirmed thiamine HCl (vitamin B1) 100 mg 100 mg PO DAILY 04/20/21 01/22/22 tablet tramadol 50 mg tablet 50 mg PO TID PRN Pain 08/28/21 01/22/22 lactulose 10 gram/15 mL oral 30 ml PO TID 09/15/21 01/22/22 solution (Enulose) melatonin 3 mg tablet 3 mg PO HS PRN Insomnia 09/15/21 01/22/22 mirtazapine 30 mg tablet 30 mg PO HS 09/15/21 01/22/22 spironolactone 100 mg tablet 100 mg PO DAILY 09/15/21 01/22/22 spironolactone 50 mg tablet 50 mg PO QAM 09/15/21 01/22/22 (Aldactone) pregabalin 75 mg capsule 75 mg PO BID 11/11/21 01/22/22 ferrous sulfate 325 mg (65 mg 325 mg PO DAILY 11/12/21 01/22/22 iron) tablet gabapentin 100 mg capsule 100 mg PO TID 11/12/21 01/22/22 gabapentin 300 mg capsule 300 mg PO TID 11/12/21 01/22/22 rifaximin 550 mg tablet (Xifaxan) 550 mg PO DAILY 11/12/21 01/22/22 baclofen 10 mg tablet 10 mg PO DAILY 01/22/22 01/22/22 Allergies Allergy/AdvReac Type Severity Reaction Status Date / Time peanut Allergy Severe Anaphylaxis Verified 05/16/22 00:35 mushroom AdvReac Unknown Verified 05/16/22 00:35 Review of Systems Review of Systems: CONSTITUTIONAL: Denies fever, chills, or sweats. EYES: Denies visual changes, redness, or discharge. ENT: Denies rhinorrhea, congestion, sore throat, or otalgia. CARDIOVASCULAR: Denies chest pain, palpitations, or edema. RESPIRATORY: Denies cough or dyspnea. GASTROINTESTINAL: Reports abdominal pain, nausea, GENITOURINARY: Denies dysuria or hematuria. SKIN: Denies rash or itching. MUSCULOSKELETAL: Denies back pain, joint pain, or myalgia. NEUROLOGIC: Reports headache PSYCHIATRIC: Denies anxiety or depression. [facility] Past Medical History Medical History Acute blood loss anemia Acute on chronic blood loss anemia Alcohol abuse Alcoholic hepatitis Anorexia Holt's esophagus with esophagitis Blood in stool Cirrhosis Coagulopathy Constipation Decompensation of cirrhosis of liver Elevated liver enzymes Esophageal varices with bleeding Hip fracture History of alcoholic hepatitis Melena Nausea Tobacco abuse Surgical History Surgical History No pertinent past surgical history Family History Family History Mother Liver disease Cirrhosis Grandparent Heart failure Heart attack Social History Social History Social History: The patient stated that he just quit smoking approximately 3 month ago. The patient had started smoking when he was 10 years old. The patient denies any alcohol Since his 1st admission or illicit drugs. The patient states that he drinks 6 pt of alcohol a day on the days that he drinks. He typically drinks 2-3 days a week. The patient is a full code. the patient would also like his father Rigo to be his surrogate. Smoking packs per day: 0.5 Smoking cigarettes per day: 10.0 Years smoked: 18 Smoking pack-years: 9.00 Tobacco type: cigarettes Smoking end date: 02/06/21 Alcohol intake: former Drinks per week: 14 Substance use: never Substance use type: does not use Other substance usage details: alcohol Last use: April 10 2021 Additional living arrangements comments: [facility]
[2022-05-16 00:19] LABS: Basophils Absolute Auto 0.1 K/mm3 (0.0-0.1); Basophils Percent Auto 0.7 % (0.2-1.2); Eosinophils Absolute Auto 0.1 K/mm3 (0-0.3); Eosinophils Percent Auto 0.7 % (0-4.4); Hemoglobin 15.3 g/dL (14.0-18.0); Immature Granulocyte Absolute 0.02 K/mm3 (0.00-0.031); Immature Granulocyte Percent A 0.3 % (0-0.5); Immature Platelet Fraction Pct 4.7 % (0.9-11.2); Lymphocytes Absolute Auto 0.73 K/mm3 (0.9-3.2); Lymphocytes Percent Auto 10.6 % (18.3-44.2); Mean Corpuscular Hemoglobin 33.6 pg (26-34); Mean Corpuscular Volume 98.7 fl (80-100); Mean Platelet Volume 10.4 fl (7.4-10.4); Monocytes Absolute Auto 0.9 K/mm3 (0.1-0.6); Monocytes Percent Auto 12.4 % (2.6-8.5); Neutrophils Absolute Auto 5.2 K/mm3 (1.3-6.7); Neutrophils Percent Auto 75.3 % (45.5-73.1); Platelet Count Result 123 k/mm3 (150-375); Red Blood Count 4.56 M/mm3 (4.6-6.20); Red Cell Distribution Width 17.7 % (11.5-14.5); White Blood Count 6.9 K/mm3 (4.5-10.0)
[2022-05-16 00:23] LABS: Appearance Urine Clear (Clear); Bilirubin Urine 3+ (Negative); Color Urine Yellow (Yellow); Glucose Urine UA Trace mg/dL (Negative); Ketones Urine Trace mg/dL (Negative); Leukocyte Esterase Ur Negative LEU/UL (Negative); Nitrate Urine Negative (Negative); Protein Urine 1+ mg/dL (Negative); Specific Grav Ur 1.015 (1.001-1.035); pH Urine 8.5 (5.0-9.0)
[2022-05-16] MEDS: SODIUM CHLORIDE 0.9% IV 1,000 ML 999 ML IV CONT (00:23)
[2022-05-16] MEDS: LORazepam INJ (*CRX) 2 MG/ML VIAL IV PUSH ×5 (00:23→21:04)
[2022-05-16 00:24] LABS: Add Urine Microscopic? YES; Blood Urine Trace-Intact (Negative)
[2022-05-16] MEDS: ONDANSETRON INJ 4 MG/2 ML VIAL IV PUSH ×3 (00:25→14:18)
[2022-05-16 00:27] LABS: Ethanol < 10 mg/dL (<10)
[2022-05-16] MEDS: METOPROLOL TARTRATE INJ 5 MG/5 ML VIAL IV PUSH (00:28)
[2022-05-16 00:29] LABS: Hyaline Casts Urine 30-49 /lpf; Mucus Urine Heavy /lpf; WBC Urine 0-3 /hpf
[2022-05-16 00:29] LABS: Albumin Level 4.1 g/dL (3.5-5.1); Alkaline Phosphatase 267 U/L (38-126); Anion Gap 17 mmol/L (8-16); Bilirubin,Total 7.7 mg/dL (0.2-1.3); Blood Urea Nitrogen 2 mg/dL (9-20); Calcium 9.9 mg/dL (8.4-10.2); Carbon Dioxide 21 mmol/L (22-30); Chloride 97 mmol/L (98-107); Estimated CRCL calculation 129 ml/min; Estimated Glomerular Filt Rate > 60; Glucose 108 mg/dL (65-110); Lipase 167 U/L (23-300); Potassium 3.3 mmol/L (3.4-5.0); Sodium 135 mmol/L (137-145)
[2022-05-16 00:36] LABS: Amphetamine Screen Urine Negative (Negative); Barbiturate Screen Urine Negative (Negative); Benzodiazepines Screen Urine Negative (Negative); Cannabinoid Screen Urine Positive (Negative); Cocaine Screen Urine Negative (Negative); Methadone Screen Urine Negative (Negative); Opiate Screen Urine Negative (Negative); Phencyclidine Screen Urine Negative (Negative)
[2022-05-16 00:48] LABS: Alanine Aminotransferase 150 U/L (6-50); Aspartate Amino Transferase 285 U/L (17-59)
[2022-05-16 00:54] LABS: SARS-CoV-2 RNA PCR Negative
[2022-05-16] MEDS: THIAMINE HCL INJ 100 MG, FOLIC ACID INJ 1 MG, MULTIVITAMINS-12 INJ VIAL 1 5 ML, MULTIVI... IV CONT (02:11)
--- NOTE | 2022-05-16 02:20 | ADMGEN ---
This patient, Lukas Diaz, was admitted to 3 [facility] Surg Room 330-01. Patient/family oriented to hospital policies and general routines including ID bracelet, bed and alarms, visiting hours, pain management, procedures, bathroom and other care routines, personal items, smoking policy, room service/diet, and visiting hours. Information on how to activate the Rapid Response Team has been discussed. Patient/Family are encouraged to report perceived risks to care and to ask questions if they do not understand what they are told or what they should do.
--- NOTE | 2022-05-16 02:27 | PM.IMHP ---
H&P: HPI History of Present Illness Date/Time: 05/16/22 02:27 Chief Complaint: Alcohol withdrawal Narrative: Patient is a 36-year-old male with past medical history alcohol abuse with alcohol withdrawal, alcohol cirrhosis, history of left hip fracture who presents to ED with complaints of going through alcohol withdrawals. Patient has alcohol cirrhosis and was on many medications including lactulose and propranolol. He is homeless on Medicaid and social security. He had broken his left hip apparently over the winter and was trying to get medical clearance for surgery that appeared to be not urgent. He was in a rehab facility from November to March of this year and left AM. He was not given any prescriptions when he left [place], and he failed to follow-up with PCP. he has been living in a hotel for the last 6 weeks. He has increased his alcohol consumption drinking heavy liquor with the last drink the day before. He apparently has history of seizures and delirium tremens. He complains of nausea abdominal pain and headache. In the ED: Vitals are stable, hypokalemia potassium 3.3, transaminitis, he was given 40 p.o. potassium, 1 L fluid bolus, 2 mg of Ativan, 10 mg of Librium. He was started on a banana bag. Patient to be admitted for observation for alcohol detox. Review of Systems Review of Systems: Constitutional: No Fever, No Chills, No Night Sweats, No Fatigue, No Malaise ENT/Mouth: No Hearing Changes, No Ear Pain, No Nasal Congestion, No Sinus Pain, No Hoarseness, No sore throat, No Rhinorrhea, No Swallowing Difficulty Eyes: No Eye Pain, No Redness, No Vision Changes Cardiovascular: No Chest Pain, No Palpitations, No Dyspnea on Exertion, No Orthopnea, No Claudication, No Edema Respiratory: No Cough, No Sputum, No Wheezing, No Shortness of Breath Gastrointestinal: Endorses nausea, No Vomiting, No Diarrhea, No Constipation, No Abdominal Pain, No Heartburn, No Hematochezia, No Melena Genitourinary: No Dysuria, No Urinary Frequency, No Hematuria, No Urinary Incontinence, No Urgency Musculoskeletal: No Arthralgias, No Myalgias, No Joint Swelling, No Joint Stiffness, No Back Pain Skin: No Skin Lesions, No Pruritis, No Hair Changes Neuro: No Numbness, No Paresthesias, No Loss of Consciousness, No Syncope, No Dizziness, endorses headaches Psych: No Anxiety/Panic, No Depression, No Insomnia Heme: No Bruising, No Bleeding Lymph: No Adenopathy Endocrine: No Polyuria, No Polydipsia, No Temperature Intolerance PMFSH Past Medical History Medical History Acute blood loss anemia Acute on chronic blood loss anemia Alcohol abuse Alcoholic hepatitis Anorexia Holt's esophagus with esophagitis Blood in stool Cirrhosis Coagulopathy Constipation Decompensation of cirrhosis of liver Elevated liver enzymes Esophageal varices with bleeding Hip fracture History of alcoholic hepatitis Melena Nausea Tobacco abuse Surgical History Surgical History No pertinent past surgical history Family History Family History Mother Liver disease Cirrhosis Grandparent Heart failure Heart attack Social History Social History Social History: The patient stated that he just quit smoking approximately 3 month ago. The patient had started smoking when he was 10 years old. The patient denies any alcohol Since his 1st admission or illicit drugs. The patient states that he drinks 6 pt of alcohol a day on the days that he drinks. He typically drinks 2-3 days a week. The patient is a full code. the patient would also like his father Rigo to be his surrogate. Smoking packs per day: 0.5 Smoking cigarettes per day: 10.0 Years smoked: 18 Smoking pack-years: 9.00 Tobacco type: cigarettes Smoking end date:
[2022-05-16 03:24] LABS: INR 1.7; Prothrombin Time 19.6 Seconds (11.1-14.7)
[2022-05-16] MEDS: POTASSIUM CHLORIDE 20 MEQ PACKET (FOR LIQUID) 40 MEQ PO (03:35)
[2022-05-16] MEDS: ACETAMINOPHEN 325 MG TABLET 650 MG PO ×2 (03:35→14:06)
[2022-05-16] MEDS: prednisoLONE ORAL SOLN 30 MG/10 ML SOLUTION 40 MG PO (04:22)
[2022-05-16] MEDS: SPIRONOLACTONE 50 MG TABLET 150 MG PO (08:23)
[2022-05-16] MEDS: busPIRone HCL 5 MG TABLET PO ×2 (08:23→20:49)
[2022-05-16] MEDS: FUROSEMIDE 20 MG TABLET 60 MG PO (08:23)
[2022-05-16] MEDS: HEPARIN SODIUM 5,000 UNITS/ML VIAL 5000 UNITS SUB-Q (08:23)
[2022-05-16] MEDS: rifAXIMin 550 MG TABLET PO (08:23)
[2022-05-16] MEDS: THIAMINE HCL 100 MG TABLET PO (08:25)
[2022-05-16] MEDS: FERROUS SULFATE 324 MG TABLET PO (08:25)
[2022-05-16] MEDS: MULTIVITAMINS THERAPEUTIC TAB (*BKC) 1 TABLET PO (08:25)
[2022-05-16] MEDS: PANTOPRAZOLE 40 MG TABLET PO ×2 (08:25→20:49)
[2022-05-16] MEDS: FOLIC ACID 1 MG TABLET PO (08:25)
[2022-05-16] MEDS: LACTULOSE 20 GM/30 ML UDC PO ×3 (08:27→16:54)
[2022-05-16] MEDS: PROPRANOLOL HCL 10 MG TABLET PO ×2 (08:28→20:49)
--- NOTE | 2022-05-16 11:38 | PM.IMPN ---
Progress Note: A&P Assessment and Plan (1) Withdrawal symptoms, alcohol: Code(s): F10.939 - Alcohol use, unspecified with withdrawal, unspecified Status: Acute Plan # alcohol abuse, alcohol withdrawals # transaminitis, evaluating for alcohol hepatitis -initiating CIWA protocol: Pmiles Ativan, starting scheduled Librium taper with history of significant withdrawals and seizures -history of withdrawal seizures, seizure precaution -start banana bag, continue IV fluids normal saline -thiamine, folic acid, multivitamin -history of significant alcohol abuse several pints daily liquor -checking [employer] discriminant function for possible alcoholic hepatitis, holding off on steroids for now, PT INR ordered -Zofran for nausea # hypokalemia secondary to malnutrition -potassium 3.3, given 40 mEq -will recheck potassium and replete as needed # other chronic conditions -will resume home meds -patient has not taken any home medications for last 6 weeks since AMA from rehab -alcohol cirrhosis: Will resume lactulose and restart cirrhosis medications as he has not taken over a month -Fe deficiency: Was on iron supplement -UDS positive for cannabis Diet: Regular DVT prophylaxis: Heparin Code status: Full code Disposition: Continue detox, will need alcohol abuse treatment program referral (pharmacy care coordinator consult) Additional Plan 05/16/2022 Plan is to continue current treatment. Monitor electrolytes. Refer patient to outpatient alcohol rehab upon discharge. Subjective Date/time seen: 05/16/22 11:38 Patient was seen during rounds today. Patient has mild tremors. No shortness of breath or chest pain. No abdominal pain, nausea, no vomiting. Mood stable. Review of Systems Review of Systems: All review systems are negative except as noted in history and physical examination Exam Narrative: - GENERAL: Pleasant male in no acute distress. He was shaking but appeared to be comfortable - EYES: EOMI. Anicteric. - HENT: Moist mucous membranes. - LUNGS: Clear to auscultation bilaterally, no wheezing, rhonchi, or rales. - CARDIOVASCULAR: Regular rate and rhythm. No murmur. No JVD. - ABDOMEN: Soft, non-tender and non-distended. No palpable masses. - EXTREMITIES: No edema. Peripheral pulses 2+. Non-tender. - NEUROLOGIC: No focal neurological deficits. CN II-XII grossly intact. - PSYCHIATRIC: Awake, Alert and oriented x 3. Appropriate mood and affect. - SKIN: No rashes or lesions. Warm. - LYMPH: No cervical lymphadenopathy. Objective Data Vital Signs Vital Signs: Vital Signs - 24 hr 05/15/22 23:52 05/16/22 00:28 05/15/22 23:56 Temperature 37.1 C Pulse Rate 137 H 122 H 141 H Respiratory Rate 22 H 24 H Blood Pressure 130/88 Pulse Oximetry 100 99 Oxygen Delivery Room Air 05/16/22 00:00 05/16/22 00:01 05/16/22 00:15 Temperature Pulse Rate 157 H 142 H 137 H Respiratory Rate 27 H 18 21 H Blood Pressure 134/84 Pulse Oximetry 98 Oxygen Delivery 05/16/22 00:16 05/16/22 00:17 05/16/22 00:57 Temperature Pulse Rate 136 H 128 H 96 Respiratory Rate 14 20 18 Blood Pressure 144/91 H Pulse Oximetry 98 99 94 Oxygen Delivery 05/16/22 01:00 05/16/22 01:01 05/16/22 01:24 Temperature Pulse Rate 96 95 86 Respiratory Rate 20 20 19 Blood Pressure 114/84 Pulse Oximetry Oxygen Delivery 05/16/22 01:30 05/16/22 01:31 05/16/22 02:30 Temperature Pulse Rate 90 94 Respiratory Rate 21 H 20 Blood Pressure 121/81 Pulse Oximetry Oxygen Delivery Room Air 05/16/22 02:20 05/16/22 04:00 05/16/22 05:41 Temperature 36.4 C 36.4 C Pulse Rate 96 105 H 95 Respiratory Rate 18 18 Blood Pressure 131/87 104/61 Pulse Oximetry 100 100 Oxygen Delivery 05/16/22 08:28 05/16/22 08:00 Temperature Pulse Rate 96 94 Respiratory Rate Blood Pressure Pulse Oximetry Oxygen Delivery Intake/Output Intake/Output: Intake & Output 05/13/22 05/14/22 05/15/22
[2022-05-16 11:40] LABS: Glucose Point of Care 144 mg/dl (65-105)
[2022-05-16] MEDS: POTASSIUM CHLORIDE 20 MEQ TABLET PO (12:08)
[2022-05-16] MEDS: SODIUM CHLORIDE 0.9% IV 1,000 ML 100 ML IV CONT (13:32)
[2022-05-16] MEDS: SUCRALFATE 1 GM TABLET PO ×2 (16:55→20:52)
[2022-05-16 18:13] LABS: Glucose Point of Care 100 mg/dl (65-105)
[2022-05-16] MEDS: MIRTAZAPINE 30 MG TABLET PO (20:49)
[2022-05-17] VITALS (11 sets, daily range): BP systolic 107–144; BP diastolic 65–87; PULSE 83–99; RESP 12–20; TEMP 36.5–36.8; O2SAT 99–100
[2022-05-17] MEDS: HEPARIN SODIUM 5,000 UNITS/ML VIAL 5000 UNITS SUB-Q ×3 (01:14→20:02)
[2022-05-17 01:34] LABS: Glucose Point of Care 99 mg/dl (65-105)
[2022-05-17] MEDS: LACTULOSE 20 GM/30 ML UDC PO ×3 (05:41→16:15)
[2022-05-17] MEDS: SUCRALFATE 1 GM TABLET PO ×4 (05:42→20:01)
[2022-05-17 06:54] LABS: Basophils Absolute Auto 0.1 K/mm3 (0.0-0.1); Basophils Percent Auto 1.1 % (0.2-1.2); Eosinophils Absolute Auto 0.2 K/mm3 (0-0.3); Eosinophils Percent Auto 2.4 % (0-4.4); Hematocrit 41.2 % (42.0-52.0); Hemoglobin 13.9 g/dL (14.0-18.0); Immature Granulocyte Absolute 0.05 K/mm3 (0.00-0.031); Immature Granulocyte Percent A 0.6 % (0-0.5); Immature Platelet Fraction Pct 5.3 % (0.9-11.2); Lymphocytes Absolute Auto 1.72 K/mm3 (0.9-3.2); Mean Corpuscular HGB Conc 33.7 g/dl (32-36); Mean Corpuscular Volume 100.7 fl (80-100); Mean Platelet Volume 10.4 fl (7.4-10.4); Monocytes Absolute Auto 0.9 K/mm3 (0.1-0.6); Monocytes Percent Auto 10.9 % (2.6-8.5); Neutrophils Absolute Auto 4.9 K/mm3 (1.3-6.7); Platelet Count Result 132 k/mm3 (150-375); Red Blood Count 4.09 M/mm3 (4.6-6.20); Red Cell Distribution Width 18.8 % (11.5-14.5); White Blood Count 7.8 K/mm3 (4.5-10.0)
[2022-05-17 07:03] LABS: INR 1.5; Prothrombin Time 17.9 Seconds (11.1-14.7)
[2022-05-17 07:04] LABS: Alanine Aminotransferase 116 U/L (6-50); Albumin Level 3.3 g/dL (3.5-5.1); Alkaline Phosphatase 190 U/L (38-126); Anion Gap 12 mmol/L (8-16); Aspartate Amino Transferase 181 U/L (17-59); Bilirubin,Total 5.9 mg/dL (0.2-1.3); Blood Urea Nitrogen 5 mg/dL (9-20); Calcium 8.4 mg/dL (8.4-10.2); Carbon Dioxide 25 mmol/L (22-30); Chloride 104 mmol/L (98-107); Estimated CRCL calculation 112 ml/min; Estimated Glomerular Filt Rate > 60; Glucose 114 mg/dL (65-110); Magnesium 1.7 mg/dL (1.6-2.3); Potassium 3.1 mmol/L (3.4-5.0); Sodium 141 mmol/L (137-145)
[2022-05-17] MEDS: MULTIVITAMINS THERAPEUTIC TAB (*BKC) 1 TABLET PO (08:56)
[2022-05-17] MEDS: SPIRONOLACTONE 50 MG TABLET 150 MG PO (08:56)
[2022-05-17] MEDS: PANTOPRAZOLE 40 MG TABLET PO ×2 (08:56→20:01)
[2022-05-17] MEDS: THIAMINE HCL 100 MG TABLET PO (08:56)
[2022-05-17] MEDS: busPIRone HCL 5 MG TABLET PO ×2 (08:56→20:01)
[2022-05-17] MEDS: FUROSEMIDE 20 MG TABLET 60 MG PO (08:56)
[2022-05-17] MEDS: FOLIC ACID 1 MG TABLET PO (08:56)
[2022-05-17] MEDS: FERROUS SULFATE 324 MG TABLET PO (08:57)
[2022-05-17] MEDS: PROPRANOLOL HCL 10 MG TABLET PO ×2 (08:57→20:01)
[2022-05-17] MEDS: rifAXIMin 550 MG TABLET PO (08:58)
--- NOTE | 2022-05-17 09:29 | PM.IMPN ---
Progress Note: A&P Assessment and Plan (1) Withdrawal symptoms, alcohol: Code(s): F10.939 - Alcohol use, unspecified with withdrawal, unspecified Status: Acute Plan # alcohol abuse, alcohol withdrawals # transaminitis, evaluating for alcohol hepatitis -initiating CIWA protocol: Pmiles Ativan, starting scheduled Librium taper with history of significant withdrawals and seizures -history of withdrawal seizures, seizure precaution -start banana bag, continue IV fluids normal saline -thiamine, folic acid, multivitamin -history of significant alcohol abuse several pints daily liquor -checking [employer] discriminant function for possible alcoholic hepatitis, holding off on steroids for now, PT INR ordered -Zofran for nausea # hypokalemia secondary to malnutrition -potassium 3.1, given 40 mEq -will recheck potassium and replete as needed # other chronic conditions -will resume home meds -patient has not taken any home medications for last 6 weeks since AMA from rehab -alcohol cirrhosis: Will resume lactulose and restart cirrhosis medications as he has not taken over a month -Fe deficiency: Was on iron supplement -UDS positive for cannabis Diet: Regular DVT prophylaxis: Heparin Code status: Full code Disposition: Continue detox, will need alcohol abuse treatment program referral (rn primary care consult) Additional Plan 05/16/2022 Plan is to continue current treatment. Monitor electrolytes. Refer patient to outpatient alcohol rehab upon discharge. 05/17/2022 patient is clinically much better today. Decreased withdrawal. Patient potassium is 3.1. Will give potassium and magnesium. Monitor lytes. Possible discharge in the morning. Referred to outpatient alcohol rehab upon discharge. Subjective Date/time seen: 05/17/22 09:29 Patient was seen during the morning rounds today. Patient withdraws slightly better. Decrease tremors. No shortness of breath or chest pain no abdominal pain, nausea, no vomiting. Mood stable. Review of Systems Review of Systems: All systems reviewed & are unremarkable except as noted in HPI and below ( the history and physical examination.) Exam Narrative: - GENERAL: Pleasant male in no acute distress. He was shaking but appeared to be comfortable - EYES: EOMI. Anicteric. - HENT: Moist mucous membranes. - LUNGS: Clear to auscultation bilaterally, no wheezing, rhonchi, or rales. - CARDIOVASCULAR: Regular rate and rhythm. No murmur. No JVD. - ABDOMEN: Soft, non-tender and non-distended. No palpable masses. - EXTREMITIES: No edema. Peripheral pulses 2+. Non-tender. - NEUROLOGIC: No focal neurological deficits. CN II-XII grossly intact. slight tremors - PSYCHIATRIC: Awake, Alert and oriented x 3. Appropriate mood and affect. - SKIN: No rashes or lesions. Warm. - LYMPH: No cervical lymphadenopathy. Objective Data Vital Signs Vital Signs: Vital Signs - 24 hr 05/16/22 12:00 05/16/22 14:00 05/16/22 16:00 Temperature 36.8 C Pulse Rate 114 H 98 91 Respiratory Rate 16 Blood Pressure 119/74 Pulse Oximetry 98 Oxygen Delivery 05/16/22 20:49 05/16/22 22:00 05/16/22 20:00 Temperature 36.7 C Pulse Rate 90 85 85 Respiratory Rate 16 Blood Pressure 108/65 Pulse Oximetry 98 Oxygen Delivery 05/16/22 20:00 05/16/22 20:00 05/17/22 00:00 Temperature Pulse Rate 85 83 Respiratory Rate 16 Blood Pressure 112/58 L Pulse Oximetry 98 Oxygen Delivery Room Air 05/17/22 00:00 05/17/22 04:00 05/17/22 06:00 Temperature 36.5 C Pulse Rate 89 83 Respiratory Rate 20 Blood Pressure 108/65 144/70 H Pulse Oximetry 100 Oxygen Delivery 05/17/22 08:57 Temperature Pulse Rate 93 Respiratory Rate Blood Pressure Pulse Oximetry Oxygen Delivery Intake/Output Intake/Output: Intake & Output 05/14/22 05/15/22 05/16/22 05/17/22 23:59 23:59 23:59 23:59 Intake Total 3133.2 Output Total 1350 Balance 3133.2 -1350 Meds
[2022-05-17] MEDS: POTASSIUM CHLORIDE 20 MEQ TABLET 40 MEQ PO (10:21)
[2022-05-17] MEDS: traMADol HCL (*CRX) 50 MG TABLET PO (10:21)
[2022-05-17] MEDS: MAGNESIUM OXIDE 400 MG TABLET PO (10:39)
[2022-05-17 12:50] LABS: Glucose Point of Care 128 mg/dl (65-105)
[2022-05-17] MEDS: NICOTINE (*PBKC) 2 MG GUM PO (13:12)
[2022-05-17] MEDS: SODIUM CHLORIDE 0.9% IV 1,000 ML 100 ML IV CONT (16:15)
[2022-05-17 18:53] LABS: Glucose Point of Care 122 mg/dl (65-105)
[2022-05-17] MEDS: LORazepam INJ (*CRX) 2 MG/ML VIAL IV PUSH (19:10)
[2022-05-17] MEDS: MIRTAZAPINE 30 MG TABLET PO (20:01)
[2022-05-17] MEDS: MELATONIN 3 MG TABLET PO (23:22)
[2022-05-18] VITALS (12 sets, daily range): BP systolic 112–119; BP diastolic 73–83; PULSE 78–91; RESP 18; TEMP 36.4–36.7; O2SAT 96–100
[2022-05-18 00:15] LABS: Glucose Point of Care 97 mg/dl (65-105)
[2022-05-18] MEDS: SODIUM CHLORIDE 0.9% IV 1,000 ML 100 ML IV CONT ×2 (02:58→21:16)
[2022-05-18] MEDS: SUCRALFATE 1 GM TABLET PO ×4 (05:58→21:18)
[2022-05-18 06:05] LABS: Glucose Point of Care 131 mg/dl (65-105)
[2022-05-18 09:18] LABS: Basophils Absolute Auto 0.1 K/mm3 (0.0-0.1); Basophils Percent Auto 1.3 % (0.2-1.2); Eosinophils Absolute Auto 0.1 K/mm3 (0-0.3); Eosinophils Percent Auto 2.3 % (0-4.4); Hematocrit 43.2 % (42.0-52.0); Hemoglobin 14.2 g/dL (14.0-18.0); Immature Granulocyte Absolute 0.07 K/mm3 (0.00-0.031); Immature Granulocyte Percent A 1.1 % (0-0.5); Lymphocytes Absolute Auto 1.36 K/mm3 (0.9-3.2); Mean Corpuscular HGB Conc 32.9 g/dl (32-36); Mean Corpuscular Hemoglobin 34.1 pg (26-34); Mean Corpuscular Volume 103.8 fl (80-100); Mean Platelet Volume 10.4 fl (7.4-10.4); Monocytes Absolute Auto 0.8 K/mm3 (0.1-0.6); Monocytes Percent Auto 12.8 % (2.6-8.5); Neutrophils Absolute Auto 3.7 K/mm3 (1.3-6.7); Neutrophils Percent Auto 60.5 % (45.5-73.1); Platelet Count Result 145 k/mm3 (150-375); Red Blood Count 4.16 M/mm3 (4.6-6.20); Red Cell Distribution Width 19.9 % (11.5-14.5); White Blood Count 6.2 K/mm3 (4.5-10.0)
[2022-05-18 09:27] LABS: INR 1.5; Prothrombin Time 17.2 Seconds (11.1-14.7)
[2022-05-18 09:35] LABS: Alanine Aminotransferase 104 U/L (6-50); Albumin Level 3.6 g/dL (3.5-5.1); Alkaline Phosphatase 327 U/L (38-126); Anion Gap 11 mmol/L (8-16); Aspartate Amino Transferase 149 U/L (17-59); Bilirubin,Total 5.8 mg/dL (0.2-1.3); Blood Urea Nitrogen 6 mg/dL (9-20); Carbon Dioxide 28 mmol/L (22-30); Chloride 101 mmol/L (98-107); Estimated CRCL calculation 112 ml/min; Estimated Glomerular Filt Rate > 60; Glucose 106 mg/dL (65-110); Potassium 3.7 mmol/L (3.4-5.0); Sodium 140 mmol/L (137-145)
[2022-05-18] MEDS: NICOTINE (*PBKC) 14 MG PATCH 1 PATCH TRANSDERM (09:42)
[2022-05-18] MEDS: LACTULOSE 20 GM/30 ML UDC PO ×3 (09:44→15:57)
[2022-05-18] MEDS: HEPARIN SODIUM 5,000 UNITS/ML VIAL 5000 UNITS SUB-Q ×2 (09:45→21:21)
[2022-05-18] MEDS: THIAMINE HCL 100 MG TABLET PO (09:46)
[2022-05-18] MEDS: PROPRANOLOL HCL 10 MG TABLET PO ×2 (09:46→21:19)
[2022-05-18] MEDS: SPIRONOLACTONE 50 MG TABLET 150 MG PO (09:47)
[2022-05-18] MEDS: MAGNESIUM OXIDE 400 MG TABLET PO (09:47)
[2022-05-18] MEDS: PANTOPRAZOLE 40 MG TABLET PO (09:48)
[2022-05-18] MEDS: rifAXIMin 550 MG TABLET PO (09:48)
[2022-05-18] MEDS: FERROUS SULFATE 324 MG TABLET PO (09:48)
[2022-05-18] MEDS: busPIRone HCL 5 MG TABLET PO ×2 (09:48→21:23)
[2022-05-18] MEDS: FOLIC ACID 1 MG TABLET PO (09:48)
[2022-05-18] MEDS: MULTIVITAMINS THERAPEUTIC TAB (*BKC) 1 TABLET PO (09:48)
[2022-05-18] MEDS: traMADol HCL (*CRX) 50 MG TABLET PO ×2 (09:57→21:35)
[2022-05-18] MEDS: LORazepam (*CRX) 1 MG TABLET PO ×2 (09:57→21:35)
[2022-05-18 10:07] LABS: Hepatitis B Surface Antigen Negative (Negative)
[2022-05-18 10:13] LABS: HAV RESULT Negative (Negative); Hepatitis B Core IgM Result Negative (Negative)
[2022-05-18 10:25] LABS: Hepatitis C Virus Antibody Negative (Negative)
[2022-05-18 10:32] LABS: HIV 1/2 Ab P24 Ag Result Negative (Negative)
[2022-05-18 11:44] LABS: Glucose Point of Care 106 mg/dl (65-105)
--- NOTE | 2022-05-18 13:50 | PM.IMPN ---
Progress Note: A&P Assessment and Plan (1) Withdrawal symptoms, alcohol: Code(s): F10.939 - Alcohol use, unspecified with withdrawal, unspecified Status: Acute Plan # alcohol abuse, alcohol withdrawals # transaminitis, evaluating for alcohol hepatitis -initiating CIWA protocol: Pmiles Ativan, starting scheduled Librium taper with history of significant withdrawals and seizures -history of withdrawal seizures, seizure precaution -start banana bag, continue IV fluids normal saline -thiamine, folic acid, multivitamin -history of significant alcohol abuse several pints daily liquor -checking [email or web address] discriminant function for possible alcoholic hepatitis, holding off on steroids for now, PT INR ordered -Zofran for nausea 05/18 -continues to report withdrawal symptoms. Will monitor and trend CIWA. #Abdominal pain - reporting diffuse abdominal pain x3 days. Will order diagnostic paracentesis and start Ceftriaxone 2g IV daily. # hypokalemia secondary to malnutrition -will recheck potassium and replete as needed # other chronic conditions -will resume home meds -patient has not taken any home medications for last 6 weeks since AMA from rehab -alcohol cirrhosis: Will resume lactulose and restart cirrhosis medications as he has not taken over a month -Fe deficiency: Was on iron supplement -UDS positive for cannabis Diet: Regular DVT prophylaxis: Heparin Code status: Full code Disposition: Continue detox, will need alcohol abuse treatment program referral (acute care physician consult) Additional Plan 05/16/2022 Plan is to continue current treatment. Monitor electrolytes. Refer patient to outpatient alcohol rehab upon discharge. 05/17/2022 patient is clinically much better today. Decreased withdrawal. Patient potassium is 3.1. Will give potassium and magnesium. Monitor lytes. Possible discharge in the morning. Referred to outpatient alcohol rehab upon discharge. Subjective Date/time seen: 05/18/22 01:50 Patient reporting abdominal pain for the past three days. Also saying he is having visual and tactile hallucinations. Reports seeing the floor and yepez moving and feeling bugs crawling on his skin. Reports when he discharges he has nowhere to go except for the hotel where he has been living since leaving the rehab facility AMA. Describes the abdominal pain as sharp. Review of Systems Gastrointestinal: Gastrointestinal: Reports abdominal pain Exam Narrative: GENERAL: NAD, cooperative HEENT: Normocephalic, atraumatic, anicteric, nares clear NECK: Supple CV: Normal S1, S2, RRR, No MRG RESP: CTAB, Normal work of breathing. Abdomen: Soft, non-tender, non-distended, pt reporting generalized tenderness, no peritoneal signs on exam - no pain with movement of the bed EXTREMITIES: Warm and well perfused, no clubbing, cyanosis, or edema. . SKIN: warm, dry and intact. NEURO: CN 2-12 grossly intat Objective Data Vital Signs Vital Signs: Vital Signs - 24 hr 05/18/22 04:00 05/18/22 06:00 05/18/22 09:46 Temperature 97.8 F Pulse Rate 87 86 91 Respiratory Rate 18 Blood Pressure 119/83 Pulse Oximetry 100 Oxygen Delivery 05/18/22 09:53 05/18/22 08:00 05/18/22 12:00 Temperature Pulse Rate 90 78 Respiratory Rate Blood Pressure Pulse Oximetry Oxygen Delivery Room Air 05/18/22 14:00 05/18/22 15:47 05/18/22 16:00 Temperature 97.6 F Pulse Rate 86 88 Respiratory Rate 18 Blood Pressure 115/75 Pulse Oximetry 99 Oxygen Delivery Room Air 05/18/22 10:22 05/18/22 21:19 05/18/22 22:00 Temperature 98.0 F Pulse Rate 88 84 Respiratory Rate 18 Blood Pressure 112/73 Pulse Oximetry 96 96 Oxygen Delivery Room Air 05/18/22 20:00 05/18/22 20:00 Temperature Pulse Rate 84 Respiratory Rate 18 Blood Pressure 112/73 Pulse Oximetry 96 Oxygen Delivery Room Air Intake/Output Intake/Output: Intake & Output 05/16/22 05/17/22 05/18/22 0
[2022-05-18 15:38] LABS: Albumin Level 3.5 g/dL (3.5-5.1)
[2022-05-18 18:31] LABS: Glucose Point of Care 99 mg/dl (65-105)
[2022-05-18] MEDS: MIRTAZAPINE 30 MG TABLET PO (21:23)
[2022-05-19] VITALS (11 sets, daily range): BP systolic 103–117; BP diastolic 70–83; PULSE 74–99; RESP 14–18; TEMP 36.3–36.7; O2SAT 97–100
[2022-05-19] MEDS: PANTOPRAZOLE 40 MG TABLET PO ×3 (00:28→21:34)
[2022-05-19 01:50] LABS: Glucose Point of Care 108 mg/dl (65-105)
[2022-05-19] MEDS: cefTRIAXone 2 GM in SODIUM CHLORIDE 0.9% IV 100 ML 200 ML IVPB (03:56)
[2022-05-19] MEDS: SUCRALFATE 1 GM TABLET PO ×4 (05:51→20:33)
--- NOTE | 2022-05-19 08:19 | PM.IMPN ---
Progress Note: A&P Assessment and Plan (1) Withdrawal symptoms, alcohol: Code(s): F10.939 - Alcohol use, unspecified with withdrawal, unspecified Status: Acute Assessment and Plan: Hx of withdrawal seizures. CIWA 4-9 in the last 24 hours downtrending and took po lorazepam x 2 yesterday and no IV lorazepam. Improving. Will plan for possible discharge tomorrow. -Discontinue lorazepam IV -Continue lorazepam po for now -If withdrawal overnight, would try longer acting chlordiazepoxide -Thimaine, MVN, folate (2) Transaminitis: Code(s): R74.01 - Elevation of levels of liver transaminase levels Status: Acute Assessment and Plan: AST&ALT downtrending. ALK phos elevated yesterday. Ferritin 116. GGT still pending. HAV, HBV, HCV, HIV negative. Hx of cirrhosis. Maddrey's DF 20.8 at this time so no longer indicated for steroids. Will continue to monitor. (3) Abdominal pain: Code(s): R10.9 - Unspecified abdominal pain Status: Acute Assessment and Plan: IR unable to do diagnostic paracentesis yesterday as there is no ascites at this time. Patient improved this morning after starting Ceftriaxone 2g IV. Will continue for now. (4) Cirrhosis: Code(s): K74.60 - Unspecified cirrhosis of liver Status: Acute Assessment and Plan: MELD 18 Temi Buck Class A. Hx of esophageal varices on EGD. Last complete abdominal US in our system is from 08/14 but patient follows outpatient with Hepatology and may have had other surveillance. -AFP with AM labs -Continue lactulose -SBP prophylaxis with rifaximin on hold due to treatment for SBP -Continue propranolol -Continue spironolactone 150 mg daily (5) Thrombocytopenia: Code(s): D69.6 - Thrombocytopenia, unspecified Status: Acute Assessment and Plan: Likely due to cirrhosis. Stable with no evidence of bleeding. (6) Hypokalemia: Code(s): E87.6 - Hypokalemia Status: Acute Assessment and Plan: Resolved. (7) Anemia: Code(s): D64.9 - Anemia, unspecified Status: Acute Assessment and Plan: On iron at home. Improved. Continue iron. Plan DVT prophylaxis: Heparin Code status: Full code Disposition: Continue detox, will need alcohol abuse treatment program referral (medicare biller consult) Subjective Date/time seen: 05/19/22 08:19 Patient reports feeling bugs crawling on his skin and seeing the floor sinking. Says his abdomen feels better today and is no longer having significant abdominal pain. Review of Systems Gastrointestinal: Gastrointestinal: Reports abdominal pain (improved) Exam Narrative: GENERAL: NAD, cooperative HEENT: Normocephalic, atraumatic, anicteric, nares clear NECK: Supple CV: Normal S1, S2, RRR, No MRG RESP: CTAB, Normal work of breathing. Abdomen: Soft, non-tender, non-distended, hypoactive BS EXTREMITIES: Warm and well perfused, no clubbing, cyanosis, or edema. SKIN: warm, dry and intact. NEURO: CN 2-12 grossly intat Objective Data Vital Signs Vital Signs: Vital Signs - 24 hr 05/18/22 09:46 05/18/22 09:53 05/18/22 12:00 Temperature Pulse Rate 91 78 Respiratory Rate Blood Pressure Pulse Oximetry Oxygen Delivery Room Air 05/18/22 14:00 05/18/22 15:47 05/18/22 16:00 Temperature 97.6 F Pulse Rate 86 88 Respiratory Rate 18 Blood Pressure 115/75 Pulse Oximetry 99 Oxygen Delivery Room Air 05/18/22 10:22 05/18/22 21:19 05/18/22 22:00 Temperature 98.0 F Pulse Rate 88 84 Respiratory Rate 18 Blood Pressure 112/73 Pulse Oximetry 96 96 Oxygen Delivery Room Air 05/18/22 20:00 05/18/22 20:00 05/19/22 00:00 Temperature Pulse Rate 84 75 Respiratory Rate 18 Blood Pressure 112/73 Pulse Oximetry 96 Oxygen Delivery Room Air 05/19/22 05:34 05/19/22 04:00 05/19/22 04:00 Temperature 98.0 F Pul
[2022-05-19 08:46] LABS: Basophils Absolute Auto 0.1 K/mm3 (0.0-0.1); Basophils Percent Auto 1.5 % (0.2-1.2); Eosinophils Absolute Auto 0.2 K/mm3 (0-0.3); Eosinophils Percent Auto 3.6 % (0-4.4); Hemoglobin 13.8 g/dL (14.0-18.0); Immature Granulocyte Absolute 0.09 K/mm3 (0.00-0.031); Immature Granulocyte Percent A 1.7 % (0-0.5); Immature Platelet Fraction Pct 4.3 % (0.9-11.2); Lymphocytes Absolute Auto 1.17 K/mm3 (0.9-3.2); Lymphocytes Percent Auto 22.4 % (18.3-44.2); Mean Corpuscular HGB Conc 32.9 g/dl (32-36); Mean Corpuscular Hemoglobin 34.2 pg (26-34); Mean Platelet Volume 9.9 fl (7.4-10.4); Monocytes Absolute Auto 0.8 K/mm3 (0.1-0.6); Monocytes Percent Auto 14.6 % (2.6-8.5); Neutrophils Absolute Auto 2.9 K/mm3 (1.3-6.7); Neutrophils Percent Auto 56.2 % (45.5-73.1); Platelet Count Result 127 k/mm3 (150-375); Red Blood Count 4.04 M/mm3 (4.6-6.20); Red Cell Distribution Width 20.2 % (11.5-14.5); White Blood Count 5.2 K/mm3 (4.5-10.0)
[2022-05-19 08:57] LABS: Anion Gap 11 mmol/L (8-16); Blood Urea Nitrogen 4 mg/dL (9-20); Calcium 8.7 mg/dL (8.4-10.2); Carbon Dioxide 24 mmol/L (22-30); Chloride 104 mmol/L (98-107); Estimated CRCL calculation 129 ml/min; Estimated Glomerular Filt Rate > 60; Glucose 80 mg/dL (65-110); Potassium 3.8 mmol/L (3.4-5.0); Sodium 139 mmol/L (137-145)
[2022-05-19] MEDS: LACTULOSE 20 GM/30 ML UDC PO ×3 (09:31→17:06)
[2022-05-19] MEDS: NICOTINE (*PBKC) 14 MG PATCH 1 PATCH TRANSDERM (09:32)
[2022-05-19] MEDS: PROPRANOLOL HCL 10 MG TABLET PO ×2 (09:35→20:31)
[2022-05-19] MEDS: THIAMINE HCL 100 MG TABLET PO (09:36)
[2022-05-19] MEDS: SPIRONOLACTONE 50 MG TABLET 150 MG PO (09:36)
[2022-05-19] MEDS: MULTIVITAMINS THERAPEUTIC TAB (*BKC) 1 TABLET PO (09:37)
[2022-05-19] MEDS: FOLIC ACID 1 MG TABLET PO (09:37)
[2022-05-19] MEDS: busPIRone HCL 5 MG TABLET PO ×2 (09:37→20:31)
[2022-05-19] MEDS: FERROUS SULFATE 324 MG TABLET PO (09:37)
[2022-05-19] MEDS: MAGNESIUM OXIDE 400 MG TABLET PO (09:37)
[2022-05-19] MEDS: SODIUM CHLORIDE 0.9% IV 1,000 ML 100 ML IV CONT (12:03)
[2022-05-19 12:23] LABS: Glucose Point of Care 198 mg/dl (65-105)
[2022-05-19] MEDS: traMADol HCL (*CRX) 50 MG TABLET PO (13:51)
[2022-05-19 16:47] LABS: Glucose Point of Care 133 mg/dl (65-105)
[2022-05-19] MEDS: LORazepam (*CRX) 1 MG TABLET PO (20:29)
[2022-05-19] MEDS: MIRTAZAPINE 30 MG TABLET PO (20:31)
[2022-05-20] VITALS: BP 103/72; PULSE 91
[2022-05-20] MEDS: cefTRIAXone 2 GM in SODIUM CHLORIDE 0.9% IV 100 ML 200 ML IVPB (03:53)
[2022-05-20 04:00] VITALS: BP 103/72; PULSE 87
[2022-05-20] MEDS: SUCRALFATE 1 GM TABLET PO ×2 (05:46→11:04)
[2022-05-20 06:00] VITALS: BP 137/83; PULSE 84; RESP 12; TEMP 36.5; O2SAT 97
[2022-05-20 06:06] LABS: Basophils Absolute Auto 0.1 K/mm3 (0.0-0.1); Basophils Percent Auto 1.7 % (0.2-1.2); Eosinophils Absolute Auto 0.2 K/mm3 (0-0.3); Eosinophils Percent Auto 2.8 % (0-4.4); Hematocrit 41.9 % (42.0-52.0); Hemoglobin 13.7 g/dL (14.0-18.0); Immature Granulocyte Absolute 0.16 K/mm3 (0.00-0.031); Immature Granulocyte Percent A 2.5 % (0-0.5); Immature Platelet Fraction Pct 4.7 % (0.9-11.2); Lymphocytes Absolute Auto 1.19 K/mm3 (0.9-3.2); Lymphocytes Percent Auto 18.3 % (18.3-44.2); Mean Corpuscular HGB Conc 32.7 g/dl (32-36); Mean Corpuscular Hemoglobin 34.1 pg (26-34); Mean Corpuscular Volume 104.2 fl (80-100); Mean Platelet Volume 11.2 fl (7.4-10.4); Monocytes Absolute Auto 1.1 K/mm3 (0.1-0.6); Monocytes Percent Auto 16.3 % (2.6-8.5); Neutrophils Absolute Auto 3.8 K/mm3 (1.3-6.7); Neutrophils Percent Auto 58.4 % (45.5-73.1); Platelet Count Result 139 k/mm3 (150-375); Red Blood Count 4.02 M/mm3 (4.6-6.20); Red Cell Distribution Width 20.8 % (11.5-14.5); White Blood Count 6.5 K/mm3 (4.5-10.0)
[2022-05-20 06:15] LABS: Alanine Aminotransferase 78 U/L (6-50); Albumin Level 3.3 g/dL (3.5-5.1); Alkaline Phosphatase 242 U/L (38-126); Anion Gap 10 mmol/L (8-16); Aspartate Amino Transferase 113 U/L (17-59); Bilirubin,Total 4.4 mg/dL (0.2-1.3); Blood Urea Nitrogen 5 mg/dL (9-20); Calcium 8.2 mg/dL (8.4-10.2); Carbon Dioxide 25 mmol/L (22-30); Chloride 105 mmol/L (98-107); Estimated CRCL calculation 129 ml/min; Estimated Glomerular Filt Rate > 60; Glucose 80 mg/dL (65-110); Potassium 3.9 mmol/L (3.4-5.0); Sodium 140 mmol/L (137-145)
--- NOTE | 2022-05-20 07:56 | PM.DS ---
DS: Admitting Diagnosis Discharge Date 05/20/22 Admitting Diagnosis Alcohol Withdrawal DS: Discharge Diagnosis Discharge Diagnosis (1) Withdrawal symptoms, alcohol: Code(s): F10.939 - Alcohol use, unspecified with withdrawal, unspecified Status: Acute Assessment and Plan: Hx of withdrawal seizures. CIWA 4-9 in the last 24 hours downtrending and took po lorazepam x 2 yesterday and no IV lorazepam. Improving. Will plan for possible discharge tomorrow. -Discontinue lorazepam IV -Continue lorazepam po for now -If withdrawal overnight, would try longer acting chlordiazepoxide -Thiamine, MVN, folate -05/20/22 CIWA scores 0-4 since noon on 05/19/22 and patient reporting he feels better (2) Transaminitis: Code(s): R74.01 - Elevation of levels of liver transaminase levels Status: Acute Assessment and Plan: AST&ALT downtrending. ALK phos elevated yesterday. Ferritin 116. HAV, HBV, HCV, HIV negative. Hx of cirrhosis. Maddrey's DF 20.8 at this time so no longer indicated for steroids. GGT and AFP still pending at the time of dicharge. LFTs continue to improve downtrending on the day of discharge. (3) Abdominal pain: Code(s): R10.9 - Unspecified abdominal pain Status: Acute Assessment and Plan: IR unable to do diagnostic paracentesis yesterday as there is no ascites at this time. Without fluid technically this is cannot be diagnosed but patient had improvement after and per patient does have a hx of SBP. Will discharge with ciprofloxacin 500 mg BID x 3 days. (4) Cirrhosis: Code(s): K74.60 - Unspecified cirrhosis of liver Status: Acute Assessment and Plan: MELD 18 Temi Buck Class A. Hx of esophageal varices on EGD. Last complete abdominal US in our system is from 08/14 but patient follows outpatient with Hepatology and may have had other surveillance. -AFP with AM labs -Continue lactulose -SBP prophylaxis with rifaximin on hold due to treatment for SBP. Patient advised to resume rifaximin after 3 days of ciprofloxacin. -Continue propranolol -Continue spironolactone 150 mg daily (5) Thrombocytopenia: Code(s): D69.6 - Thrombocytopenia, unspecified Status: Acute Assessment and Plan: Likely due to cirrhosis. Stable with no evidence of bleeding. (6) Hypokalemia: Code(s): E87.6 - Hypokalemia Status: Acute Assessment and Plan: Resolved. (7) Anemia: Code(s): D64.9 - Anemia, unspecified Status: Acute Assessment and Plan: On iron at home. Improved. Continue iron. Plan DVT prophylaxis: Heparin Code status: Full code Disposition: Home DS: Summary Hospital Course Reason for hospitalization: Alcohol withdrawal Hospital Course: 36F with a past medical history of alcohol abuse, alcohol withdrawal, chronic left hip fracture and cirrhosis who presented to the emergency department with alcohol withdrawal with visual and tactile hallucinations. Patient reported having abdominal pain. Due to concern for SBP as patient has history of SBP, ceftriaxone was started. Diagnostic paracentesis was attempted but radiology reported there was no fluid available for aspiration. Patient reported improvement of abdominal pain after the ceftriaxone so it was continued and the patient was discharged to home with ciprofloxacin 500 mg BID for three days. Patient was advised to restart his rifaximin prophylaxis immediately after finishing ciprofloxacin. Patient verbalized understanding of the plan. Patient CIWA score continued to decline to as low as zero. Patient LFTs continued to down trend during the hospitalization. AFP and GGT were pending at the time of discharge. Patient advised to stop drinking. Patient discharged to home. Time Spent with Patient Time attestation: Total time spent providing and/or coordinating discharge services: Exam Narrati
[2022-05-20 08:00] VITALS: PULSE 96
[2022-05-20] MEDS: LACTULOSE 20 GM/30 ML UDC PO ×2 (08:33→12:06)
[2022-05-20] MEDS: FERROUS SULFATE 324 MG TABLET PO (08:33)
[2022-05-20] MEDS: MAGNESIUM OXIDE 400 MG TABLET PO (08:33)
[2022-05-20] MEDS: SPIRONOLACTONE 50 MG TABLET 150 MG PO (08:33)
[2022-05-20] MEDS: MULTIVITAMINS THERAPEUTIC TAB (*BKC) 1 TABLET PO (08:33)
[2022-05-20 08:34] VITALS: PULSE 96
[2022-05-20] MEDS: busPIRone HCL 5 MG TABLET PO (08:34)
[2022-05-20] MEDS: FOLIC ACID 1 MG TABLET PO (08:34)
[2022-05-20] MEDS: PROPRANOLOL HCL 10 MG TABLET PO (08:34)
[2022-05-20] MEDS: THIAMINE HCL 100 MG TABLET PO (08:34)
[2022-05-20] MEDS: PANTOPRAZOLE 40 MG TABLET PO (08:35)
[2022-05-20] MEDS: traMADol HCL (*CRX) 50 MG TABLET PO (08:42)
[2022-05-21 01:13] LABS: Glucose Point of Care 127 mg/dl (65-105)
[2022-05-21 06:22] LABS: GGT 458 U/L (3-90)
--- NOTE | 2022-05-21 12:54 | PC.NURSE ---
05/21/22 1240 Lukas called and stated that he has been having bright red stools that started last night and have continued through today. patient is lightheaded and dizzy. I advised him to go to ER to be evaluated. He verbalized understanding
== END 2022-05-20 14:40 | disposition home or self-care (01) | DRG 775 ==
LOC: ANHED 05-16 01:30 → ANH3MEDSUR 05-16 02:43
PROVIDERS: Admitting Provider Student in an Organized Health Care Education/Training Program; Emergency Provider Nurse Practitioner Family; PCP Internal Medicine; Visit Provider Family Medicine
DX: F10.139 Alcohol abuse with withdrawal, unspecified (principal); R74.01 Elevation of levels of liver transaminase levels; E87.6 Hypokalemia; E46 Unspecified protein-calorie malnutrition; Z68.25 Body mass index [BMI] 25.0-25.9, adult; K70.30 Alcoholic cirrhosis of liver without ascites; E61.1 Iron deficiency; R10.9 Unspecified abdominal pain; D64.9 Anemia, unspecified; R82.5 Elevated urine levels of drugs, medicaments and biological substances; D69.6 Thrombocytopenia, unspecified; Z20.822 Contact with and (suspected) exposure to COVID-19; Z59.00 Homelessness unspecified; Z87.891 Personal history of nicotine dependence
CPT/HCPCS: 36415; 76705; 80048; 80053; 80074; 80307; 81001; 82040; 82105; 82728; 82948; 82977; 83690; 83735; 85025; 85055; 85610; 86703; 96360; 96361; 96366; 96372; 96374; 96375; 96376; 97116; 97161; 97165; A9270; C9803; G0378; G0379; G0432; J0696; J1644; J2060; J2405; J3411; J3475; J7030; U0003; U0005

== ENCOUNTER 2022-05-21 13:10 | Inpatient (IN) | payer OTHER, SELFPAY ==
--- NOTE | ~2022-05-21 | US_ITS ---
EXAMINATION: US abdomen limited DATE: 05/27/2022 14:43 INDICATION: Ascites. TECHNIQUE: Multiple grayscale and Doppler ultrasound images of the abdomen were obtained. COMPARISON: None FINDINGS: A survey of the 4 quadrants of the abdomen demonstrates a moderate volume of ascites. There is liver surface nodularity, consistent with cirrhosis. IMPRESSION: 1. Moderate volume of ascites. 2. Cirrhosis of the liver. Reviewed, dictated and finalized at location A.
--- NOTE | ~2022-05-21 | US_ITS ---
EXAMINATION: US venous doppler [facility] DATE: 05/24/2022 15:03 INDICATION: EDEMA . TECHNIQUE: Grayscale images without and with compression and Doppler images of the bilateral lower ex tremity veins were obtained. COMPARISON: None FINDINGS: The right common femoral vein, profunda (deep) femoral vein, femoral vein, popliteal vein, peroneal v ein, posterior tibial veins, gastrocnemius vein, and greater saphenous vein are patent. The left common femoral vein, profunda femoral vein, femoral vein, popliteal vein, peroneal vein, pos terior tibial veins, gastrocnemius vein, and greater saphenous vein are patent. IMPRESSION: 1. Patent bilateral lower extremity veins. No evidence of deep venous thrombosis. Reviewed, dictated and finalized at location K. IMPRESSION: 1. Patent bilateral lower extremity veins. No evidence of deep venous thrombos is.
[2022-05-21 13:14] VITALS: BP 100/60; PULSE 126; RESP 18; TEMP 36.6; O2SAT 100
--- NOTE | 2022-05-21 13:51 | ED.GIBLEED ---
HPI - GI Bleed General Chief complaint: GI Bleed Stated complaint: blood in stool that began yesterday evening Time Seen by Provider: 05/21/22 13:12 History of Present Illness HPI Narrative: Patient is a 36-year-old male who presents to the ER with blood in his stool. Patient was discharged from the hospital yesterday after being hospitalized for alcohol withdrawal. Patient does have chronic liver disease and is followed by elevator erector helper at [facility]. His GI physician here is Dr. Emory Rossi. He reports she has history of esophageal varices. He reports last night after he got home he had a bloody stool and has had 5 and total. No loss of consciousness or dizziness but is feeling weak and nauseated. He has had some vomiting but there is been no blood in his vomit nothing that appears coffee-ground. No LOC. He does not take any blood thinning medication however he is known to occasionally be thrombocytopenic but last platelet level was 139,000. Patient denies any acid reflux. No alleviating factors. No abdominal pain. Related Data Home Medications Medication Instructions Recorded Confirmed thiamine HCl (vitamin B1) 100 mg 100 mg PO DAILY 04/20/21 05/16/22 tablet tramadol 50 mg tablet 50 mg PO TID PRN Pain 08/28/21 05/16/22 melatonin 3 mg tablet 3 mg PO HS PRN Insomnia 09/15/21 05/16/22 mirtazapine 30 mg tablet 30 mg PO HS 09/15/21 05/16/22 pregabalin 75 mg capsule 75 mg PO BID 11/11/21 05/16/22 ferrous sulfate 325 mg (65 mg 325 mg PO DAILY 11/12/21 05/16/22 iron) tablet rifaximin 550 mg tablet (Xifaxan) 550 mg PO DAILY 11/12/21 05/16/22 baclofen 10 mg tablet 10 mg PO DAILY 01/22/22 05/16/22 Allergies Allergy/AdvReac Type Severity Reaction Status Date / Time peanut Allergy Severe Anaphylaxis Verified 05/21/22 13:16 mushroom AdvReac Unknown Verified 05/21/22 13:16 Review of Systems Review of Systems: All systems reviewed & are unremarkable except as noted in HPI and below Constitutional: Constitutional: Denies chills, Reports fatigue and Denies fever(s) ENT: Denies nasal congestion and Denies sore throat Cardiovascular: Cardiovascular: Denies chest pain, Denies rapid heart rate and Denies radiating jaw, neck or arm pain Respiratory: Respiratory: Denies cough and Denies dyspnea Gastrointestinal: Gastrointestinal: Denies abdominal pain, Denies constipation, Reports nausea and Reports vomiting Comments: Bloody stools Genitourinary: Genitourinary: Denies dysuria and Denies urinary frequency Neurologic: Denies syncope, Denies focal weakness and Denies numbness PMFSH Past Medical History Medical History (Updated 05/21/22 @ 15:43 by Howard Huntley MD) Acute blood loss anemia Acute on chronic blood loss anemia Alcohol abuse Alcoholic hepatitis Anorexia Holt's esophagus with esophagitis Blood in stool Cirrhosis Coagulopathy Constipation Decompensation of cirrhosis of liver Elevated liver enzymes Esophageal varices with bleeding Hip fracture History of alcoholic hepatitis Melena Nausea Tobacco abuse Surgical History Surgical History No pertinent past surgical history Family History Family History Mother Liver disease Cirrhosis Grandparent Heart failure Heart attack Social History Social History Social History: The patient stated that he just quit smoking approximately 3 month ago. The patient had started smoking when he was 10 years old. The patient denies any alcohol Since his 1st admission or illicit drugs. The patient states that he drinks 6 pt of alcohol a day on the days that he drinks. He typically drinks 2-3 days a week. The patient is a full code. the patient would also like his father Rigo to be his surrogate. Smoking packs per day: 0.5 Smoking cigarettes per day: 10.0 Ye
[2022-05-21] MEDS: SODIUM CHLORIDE 0.9% IV 1,000 ML 999 ML IV CONT ×2 (13:55→15:17)
[2022-05-21] MEDS: ONDANSETRON INJ 4 MG/2 ML VIAL IV PUSH ×2 (13:56→16:09)
[2022-05-21 14:13] LABS: INR 1.4; Prothrombin Time 16.9 Seconds (11.1-14.7)
[2022-05-21 14:14] LABS: Alanine Aminotransferase 49 U/L (6-50); Albumin Level 2.4 g/dL (3.5-5.1); Alkaline Phosphatase 137 U/L (38-126); Anion Gap 10 mmol/L (8-16); Aspartate Amino Transferase 85 U/L (17-59); Bilirubin,Total 3.3 mg/dL (0.2-1.3); Blood Urea Nitrogen 13 mg/dL (9-20); Calcium 7.7 mg/dL (8.4-10.2); Carbon Dioxide 23 mmol/L (22-30); Chloride 104 mmol/L (98-107); Estimated CRCL calculation 158 ml/min; Estimated Glomerular Filt Rate > 60; Glucose 117 mg/dL (65-110); Partial Thromboplastin Time 32.8 SECONDS (22.3-36.8); Sodium 137 mmol/L (137-145)
[2022-05-21 14:44] LABS: Hemoglobin 8.9 g/dL (14.0-18.0); Mean Corpuscular HGB Conc 31.8 g/dl (32-36); Mean Corpuscular Hemoglobin 34.2 pg (26-34); Mean Corpuscular Volume 107.7 fl (80-100); Mean Platelet Volume 11.8 fl (7.4-10.4); Platelet Count Result 171 k/mm3 (150-375); Red Cell Distribution Width 20.4 % (11.5-14.5); White Blood Count 9.6 K/mm3 (4.5-10.0)
[2022-05-21 15:00] LABS: Band Neutrophils Percent 1 % (0-6); Eosinophils Absolute Manual 0.48 K/mm3 (0.02-0.5); Eosinophils Percent Manual 5 % (0-4); Lymphocytes Absolute Manual 3.16 K/mm3 (1.1-4.5); Lymphocytes Percent Manual 33 % (18-44); Metamyelocytes Percent 4 %; Monocytes Absolute Manual 1.05 K/mm3 (0.1-0.90); Monocytes Percent Manual 11 % (3-9); Myelocytes Percent 2 %; Neutrophils Absolute Manual 4.32 K/mm3 (1.3-6.7); Neutrophils Percent Manual 44 % (46-73); Total Cells Counted 100
[2022-05-21 15:01] LABS: Macrocytosis 1+ (NORMAL); Platelet Estimate Adequate (Adequate); Smudge Cells FEW; Target Cells 1+ (NORMAL)
[2022-05-21] MEDS: PANTOPRAZOLE SODIUM IV 40 MG VIAL 80 MG IV PUSH (15:16)
[2022-05-21 15:20] VITALS: BP 120/76; PULSE 118; RESP 20; O2SAT 100
[2022-05-21] MEDS: OCTREOTIDE ACETATE 50 MCG/ML VIAL IV PUSH (15:50)
[2022-05-21 15:57] LABS: Ethanol 27 mg/dL (<10)
[2022-05-21] MEDS: fentaNYL CITRATE INJ (*CRX) 100 MCG/2 ML VIAL 50 MCG IV PUSH ×3 (16:08→22:20)
--- NOTE | 2022-05-21 16:30 | PM.IMHP ---
H&P: HPI History of Present Illness Date/Time: 05/21/22 16:30 <Valerie Paz PA-C - Last Filed: 05/22/22 00:47> Chief Complaint: Bloody stools. <Valerie Paz PA-C - Last Filed: 05/22/22 00:47> Narrative: This is a 36-year-old with a longstanding history of alcohol abuse, alcoholic cirrhosis, esophageal varices, Holt esophagus, and alcohol withdrawal who presented to the emergency department for evaluation of bloody stools. He was recently admitted to the hospitalist service on 05/16/2022 with alcohol withdrawal symptoms, alcoholic hepatitis, and possible SBP. At that time he admitted that he had been living in a motel for the last 6 [address] [facility] since November after breaking his left hip, which has yet to be fixed. He was treated for alcohol withdrawal and possible SBP (paracentesis did not show any significant fluid to be aspirated) with improvement in his symptoms. His CIWA score trended to 0 and his LFTs started to normalize and he was discharged yesterday with prescriptions for ciprofloxacin, lactulose, spironolactone, sucralfate and folic acid. He reports feeling okay when he left and he tolerated a dinner to consist of soup and grilled cheese. Sometime last night he had a sudden urge to have a bowel movement at which time he reports passing a large amount of bright red blood. He estimates having 5 such episodes and reports that his stool is now dark maroon in color. This morning he was feeling weak and dizzy and after drinking some milk he started to feel nauseated and reports having 1 episode of emesis. Rectal exam done in the ER showed grossly bloody stool and he is being admitted in this setting. He states that he did not drink any alcohol since being discharged though his alcohol level today was 21 and when confronted he admitted to drinking half of a hard seltzer. In any event he feels okay at the time my evaluation. He specifically denies fever, chills, sweats, chest pain, shortness of breath, abdominal pain, hematemesis, tremors, and hallucinations. <Valerie Paz PA-C - Last Filed: 05/22/22 00:47> Review of Systems Review of Systems: Twelve systems were reviewed. He ambulates with a walker as he broke his hip in November and that has yet to be repaired. No syncope or near syncope. No cold or flu symptoms. No jaundice or pruritus. Urine has not been dark and he denies like colored stools. No significant change and abdominal distension/bloating. No significant abdominal pain. Occasional GERD symptoms. Except as documented, all other systems were reviewed and are negative. <Valerie Paz PA-C - Last Filed: 05/22/22 00:47> [facility] Past Medical History Medical History: Medical History (Updated 05/23/22 @ 11:53 by Eric Oconnell MD) Alcohol abuse Alcoholic hepatitis Holt's esophagus with esophagitis Cirrhosis Depression with anxiety Esophageal varices Esophageal varices with bleeding Fracture of left hip Tobacco abuse <Valerie Paz PA-C - Last Filed: 05/22/22 00:47> Surgical History Surgical History: Surgical History (Updated 05/22/22 @ 00:33 by Valerie Paz PA-C) History of esophagogastroduodenoscopy <Valerie Paz PA-C - Last Filed: 05/22/22 00:47> Family History Family History: Family History Mother Liver disease Cirrhosis Grandparent Heart failure Heart attack <Valerie Paz PA-C - Last Filed: 05/22/22 00:47> Social History Social History: Social History (Updated 05/22/22 @ 00:35 by Valerie Paz PA-C) Social History: He has been living at a motel for last 6 weeks, prior to that he was at [facility] for rehab after breaking his hip in November 2021. He smoked to half a pack a day for 18 years and at times he will still vape or chew nicotine gum. He has a longstanding history of alcohol abuse an
[2022-05-21 17:15] VITALS: BP 135/88; PULSE 89; RESP 19; O2SAT 99
[2022-05-21 17:44] LABS: SARS-CoV-2 RNA PCR Negative
[2022-05-21 19:28] VITALS: BP 112/73; PULSE 85; RESP 20; TEMP 37.1; O2SAT 99
[2022-05-21 20:45] VITALS: BP 138/74; PULSE 85; RESP 18; O2SAT 98
[2022-05-21 21:32] VITALS: BP 119/72; PULSE 105; RESP 16; TEMP 36.4; O2SAT 100
[2022-05-21 21:33] VITALS: BMI 25.9
--- NOTE | 2022-05-21 22:08 | ADMGEN ---
This patient, Lukas Diaz, was admitted to IMU Room 205-02. Patient/family oriented to hospital policies and general routines including ID bracelet, bed and alarms, visiting hours, pain management, procedures, bathroom and other care routines, personal items, smoking policy, room service/diet, and visiting hours. Information on how to activate the Rapid Response Team has been discussed. Patient/Family are encouraged to report perceived risks to care and to ask questions if they do not understand what they are told or what they should do.
[2022-05-21 22:26] LABS: Hematocrit 23.2 % (42.0-52.0); Hemoglobin 7.5 g/dL (14.0-18.0)
--- NOTE | 2022-05-21 22:34 | PC.NURSE ---
Spoke with Valerie HALL, use discharge medications from 05/20/22 for Home medication list.
[2022-05-22] VITALS (20 sets, daily range): BP systolic 101–128; BP diastolic 60–81; PULSE 91–107; RESP 16–24; TEMP 36.2–36.9; O2SAT 97–100
[2022-05-22] MEDS: chlordiazePOXIDE (*CRX) 25 MG CAPSULE PO (01:30)
[2022-05-22 02:38] LABS: Immature Platelet Fraction Pct 7.1 % (0.9-11.2); Mean Corpuscular Hemoglobin 34.3 pg (26-34); Mean Platelet Volume 10.4 fl (7.4-10.4); Platelet Count Result 137 k/mm3 (150-375); Red Blood Count 2.01 M/mm3 (4.6-6.20); Red Cell Distribution Width 19.5 % (11.5-14.5); White Blood Count 12.3 K/mm3 (4.5-10.0)
[2022-05-22 02:47] LABS: INR 1.4; Prothrombin Time 16.2 Seconds (11.1-14.7)
[2022-05-22 02:49] LABS: Alanine Aminotransferase 70 U/L (6-50); Albumin Level 2.1 g/dL (3.5-5.1); Alkaline Phosphatase 99 U/L (38-126); Anion Gap 2 mmol/L (8-16); Aspartate Amino Transferase 138 U/L (17-59); Bilirubin,Total 3.6 mg/dL (0.2-1.3); Blood Urea Nitrogen 15 mg/dL (9-20); Calcium 7.6 mg/dL (8.4-10.2); Carbon Dioxide 26 mmol/L (22-30); Chloride 102 mmol/L (98-107); Estimated CRCL calculation 158 ml/min; Estimated Glomerular Filt Rate > 60; Glucose 126 mg/dL (65-110); Magnesium 1.6 mg/dL (1.6-2.3); Sodium 130 mmol/L (137-145)
[2022-05-22 03:16] LABS: Hematocrit 20.9 % (42.0-52.0); Hemoglobin 6.9 g/dL (14.0-18.0)
[2022-05-22 03:31] LABS: Band Neutrophils Percent 1 % (0-6); Eosinophils Absolute Manual 0.36 K/mm3 (0.02-0.5); Eosinophils Percent Manual 3 % (0-4); Lymphocytes Absolute Manual 2.46 K/mm3 (1.1-4.5); Lymphocytes Percent Manual 20 % (18-44); Metamyelocytes Percent 1 %; Monocytes Absolute Manual 2.95 K/mm3 (0.1-0.90); Monocytes Percent Manual 24 % (3-9); Myelocytes Percent 2 %; Neutrophils Absolute Manual 6.15 K/mm3 (1.3-6.7); Neutrophils Percent Manual 49 % (46-73); Total Cells Counted 100
[2022-05-22 03:33] LABS: Macrocytosis 1+ (NORMAL); Platelet Estimate Adequate (Adequate); Stomatocytes 1+ (NORMAL); Target Cells 1+ (NORMAL)
--- NOTE | 2022-05-22 04:47 | PC.NURSE ---
HOSPITALIST MADE AWARE OF PATIENT'S C/O PAIN. ORDERS RECEIVED.
[2022-05-22] MEDS: diazePAM INJ (*CRX) 10 MG/2 ML SYRINGE 5 MG IV PUSH (04:57)
[2022-05-22] MEDS: chlordiazePOXIDE (*CRX) 25 MG CAPSULE 50 MG PO ×4 (06:58→23:29)
[2022-05-22] MEDS: TUBING, BLOOD PLUM PUMP TUBING 1 EACH XX (06:58)
[2022-05-22 09:35] LABS: Hematocrit 25.3 % (42.0-52.0); Hemoglobin 8.1 g/dL (14.0-18.0)
[2022-05-22] MEDS: LACTATED RINGERS 1,000 ML 150 ML IV CONT (10:13)
--- NOTE | 2022-05-22 10:24 | WPDGICN ---
Assessment and Plan Assessment and plan (1) GI bleed: Code(s): K92.2 - Gastrointestinal hemorrhage, unspecified Status: Acute Assessment and Plan: unfortunately drinking again npo and will proceed with urgent egd more recommendations after scope (2) Acute on chronic anemia: Code(s): D64.9 - Anemia, unspecified Status: Acute Assessment and Plan: monitor for more signs of bleeding and transfuse if hb<7 (3) Cirrhosis: Code(s): K74.60 - Unspecified cirrhosis of liver Status: Acute Assessment and Plan: alcoholic (4) Transaminitis: Code(s): R74.01 - Elevation of levels of liver transaminase levels Status: Acute Assessment and Plan: monitor (5) Withdrawal symptoms, alcohol: Code(s): F10.939 - Alcohol use, unspecified with withdrawal, unspecified Status: Acute Assessment and Plan: ciwa protocol, thiamine, mvi, etc (6) Esophageal varices with bleeding: Code(s): I85.01 - Esophageal varices with bleeding Status: Acute Assessment and Plan: octreotide egd to assess if varices again GI Consult Note Consult date/time: 05/22/22 10:24 Reason for consult: alcoholic cirrhosis, GIB HPI: Lukas Diaz is a 36 year old male who is well known to me. He is an alcoholic with cirrhosis with previous GIB due to EV that required banding, last EGD 10/2021 did not require any more. 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 He came here with GIB, noted several episodes of dark/brb per rectum and feeling weak. He was anemic again and admitted to hospital, started on iv protonix and octreotide. He is npo. Recent ultrasound negative for ascites (remote history of paracentesis) Review of Systems Review of Systems: Twelve systems were reviewed. He ambulates with a walker as he broke his hip in November and that has yet to be repaired. No syncope or near syncope. No cold or flu symptoms. No jaundice or pruritus. Urine has not been dark and he denies like colored stools. No significant change and abdominal distension/bloating. No significant abdominal pain. Occasional GERD symptoms. Except as documented, all other systems were reviewed and are negative. [facility] Past Medical History Medical History (Updated 05/22/22 @ 00:38 by Valerie Paz PA-C) Alcohol abuse Alcoholic hepatitis Holt's esophagus with esophagitis Cirrhosis Depression with anxiety Esophageal varices with bleeding Fracture of left hip Tobacco abuse Surgical History Surgical History (Updated 05/22/22 @ 00:33 by Valerie Paz PA-C) History of esophagogastroduodenoscopy Family History Family History Mother Liver disease Cirrhosis Grandparent Heart failure Heart attack Social History Social History (Updated 05/22/22 @ 00:35 by Valerie Paz PA-C) Social History: He has been living at a motel for last 6 weeks, prior to that he was at [facility] for rehab after breaking his hip in November 2021. He smoked to half a pack a day for 18 years and at times he will still vape or chew nicotine gum. He has a longstanding history of alcohol abuse and reports drinking up to 6 pints of alcohol on the days that he binge drinks, which is apparently several times a week. No illicit substance use. He designates his father, Modesto Diaz, as his surrogate decision maker and he wishes to be a full code. Spiritual care concerns: No Meds Home Medications and Allergies Home Medications Medication Instructions Recorded Confirmed Type folic acid 1 mg tablet 1 mg PO DAILY #30 tabs 04/11/21 05/22/22 Rx pantoprazole 40 mg tablet,delayed 40 mg PO Q12HR #60 tabs 04/11/21 05/22/22 Rx relea
--- NOTE | 2022-05-22 10:31 | WPDANESEPPF ---
Anes - Initial Pre Proc Eval Procedure: Operation Date: 05/22/22 13:30 Proposed Procedures p Esophagogastroduodenoscopy - Eric Oconnell MD Date/Time: 05/22/22 10:31 Surgeon: Andrez Barbour MD Pre Op Diagnosis: gi bleed Patient Data Age: 36 Gender: M Height: 1.7 m Weight: 75 kg Last Vital Signs Temp 36.7 C 05/22/22 09:58 Pulse 97 05/22/22 09:58 Resp 18 05/22/22 09:58 BP 101/60 05/22/22 09:58 Pulse Ox 100 05/22/22 09:58 O2 Del Method Room Air 05/22/22 09:58 Allergies Allergy/AdvReac Type Severity Reaction Status Date / Time peanut Allergy Severe Anaphylaxis Verified 05/22/22 09:57 mushroom AdvReac Unknown Verified 05/22/22 09:57 Home Medications Medication Instructions Recorded Confirmed Type folic acid 1 mg tablet 1 mg PO DAILY #30 tabs 04/11/21 05/22/22 Rx pantoprazole 40 mg tablet,delayed 40 mg PO Q12HR #60 tabs 04/11/21 05/22/22 Rx release thiamine HCl (vitamin B1) 100 mg 100 mg PO DAILY 04/20/21 05/22/22 History tablet ondansetron HCl 4 mg tablet 4 mg PO Q8H PRN nausea and 05/08/21 05/22/22 Rx (Zofran) vomiting #90 tabs buspirone 5 mg tablet 5 mg PO Q12HR #60 tabs 06/22/21 05/22/22 Rx propranolol 10 mg tablet 10 mg PO Q12HR #60 tabs 06/22/21 05/22/22 Rx furosemide 20 mg tablet (Lasix) 60 mg PO QAM 1 month #90 tabs 08/28/21 05/22/22 Rx tramadol 50 mg tablet 50 mg PO TID PRN Pain 08/28/21 05/22/22 History melatonin 3 mg tablet 3 mg PO HS PRN Insomnia 09/15/21 05/22/22 History mirtazapine 30 mg tablet 30 mg PO HS 09/15/21 05/22/22 History pregabalin 75 mg capsule 75 mg PO BID 11/11/21 05/22/22 History dronabinol 2.5 mg capsule (Marinol) 2.5 mg PO DAILY #30 caps 11/12/21 05/22/22 Rx ferrous sulfate 325 mg (65 mg 325 mg PO DAILY 11/12/21 05/22/22 History iron) tablet rifaximin 550 mg tablet (Xifaxan) 550 mg PO DAILY 11/12/21 05/22/22 History baclofen 10 mg tablet 10 mg PO DAILY 01/22/22 05/22/22 History ciprofloxacin HCl 500 mg tablet 500 mg PO Q12H 3 days #6 tabs 05/20/22 05/22/22 Rx (Cipro) lactulose 10 gram/15 mL oral 20 g (30 mL) PO TID 30 days #2,700 05/20/22 05/22/22 Rx solution mL spironolactone 50 mg tablet 150 mg PO DAILY 30 days #90 tabs 05/20/22 05/22/22 Rx (Aldactone) sucralfate 1 gram tablet 1 g PO ACHS 30 days #120 tabs 05/20/22 05/22/22 Rx Laboratory Tests 05/21/22 05/21/22 05/21/22 13:51 13:51 13:51 WBC 9.6 K/mm3 K/mm3 (4.5-10.0) RBC 2.60 M/mm3 L M/mm3 (4.6-6.20) Hgb 8.9 g/dL L D g/dL (14.0-18.0) Hct 28.0 % L % (42.0-52.0) MCV 107.7 fl H fl (80-100) MCH 34.2 pg H pg (26-34) MCHC 31.8 g/dl L g/dl (32-36) RDW 20.4 % H % (11.5-14.5) Plt Count 171 k/mm3 k/mm3 (150-375) MPV 11.8 fl H fl (7.4-10.4) Immature Gran % (Auto) Not Reportable Neut % (Auto) Not Reportable Lymph % (Auto) Not Reportable Rankin % (Auto) Not Reportable Eos % (Auto) Not Reportable Baso % (Auto) Not Reportable Lymph # (Auto) Not Reportable Rankin # (Auto) Not Reportable Eos # (Auto) Not Reportable Baso # (Auto) Not Reportable Abs Immat Gran (auto) Not Reportable Absolute Neuts (auto) Not Reportable Absolute Nucleated RBC Not Reportable Total Counted 100 Neutrophils % (Manual) 44 % L % (46-73) Band Neutrophils % 1 % % (0-6) Lymphocytes % (Manual) 33 % % (18-44) Monocytes % (Manual) 11 % H % (3-9) Eosinophils % (Manual) 5 % H % (0-4) Metamyelocytes % 4 % % Myelocytes % 2 % % Nucleated RBC % Not Reportable Abs Neuts (Manual) 4.32 K/mm3 K/mm3 (1.3-6.7) Abs Lymphs (Manual) 3.16 K/mm3 K/mm3 (1.1-4.5) Abs Monocytes (Manual) 1.05 K/mm3 H K/mm3 (0.1-0.90)
[2022-05-22] MEDS: MORPHINE SULFATE (*CRX) 2 MG/ML INJ IV PUSH ×3 (12:01→20:56)
[2022-05-22] MEDS: LORazepam (*CRX) 1 MG TABLET PO ×3 (12:08→20:56)
[2022-05-22] MEDS: FOLIC ACID 1 MG TABLET PO (14:22)
[2022-05-22] MEDS: FERROUS SULFATE 324 MG TABLET PO (14:22)
[2022-05-22] MEDS: SUCRALFATE 1 GM TABLET PO ×3 (14:22→20:55)
[2022-05-22] MEDS: THIAMINE HCL 100 MG TABLET PO (14:23)
--- NOTE | 2022-05-22 15:51 | PM.IMPN ---
Progress Note: A&P Assessment and Plan (1) GI bleed: Code(s): K92.2 - Gastrointestinal hemorrhage, unspecified Status: Acute Assessment and Plan: Patient reports bright red blood per rectum and he is now passing dark maroon stools. History of better doses of Parres as/esophageal paresis Protonix drip and octreotide drip started EGD 05/22/2022 grade 2 pheresis moderate size in distal esophagus. Varices were not actively bleeding and did not find stigmata of recent bleeding. The pheresis at 2 columns. The speed band 7 was used to splay C3 plans. Procedure was successful. Of 4 cm Holt's mucosa was present in the distal esophagus. I did not take biopsies because he has paresis moderate gastritis seen in the stomach. Gastritis as moderate edematous and portal hypertensive changes. There was no mucosal bleeding. The bulb and 2nd portion of duodenum was normal with no ulcers or masses. No stigmata of recent bleeding. H&H lowered down to 6.9 status post 1 unit of PRBC transfusion 05/21/2022 (2) Transaminitis: Code(s): R74.01 - Elevation of levels of liver transaminase levels Status: Acute Assessment and Plan: Related to alcoholic liver disease. LFTs are improved when compared to those from recent stay. (3) Acute on chronic anemia: Code(s): D64.9 - Anemia, unspecified Status: Acute Assessment and Plan: Secondary to acute blood loss on chronic anemia. Transfuse 1 unit PRBC 05/21/2022 (4) Alcohol abuse: Code(s): F10.10 - Alcohol abuse, uncomplicated Status: Chronic Assessment and Plan: He did not drink any meaningful amounts of alcohol in the last 24 hours that he was discharged thus he should not have significant withdrawal symptoms. He is calm and cooperative at the time my evaluation. Continue thiamin and folic acid supplementation. On Librium as well (5) Cirrhosis: Code(s): K74.60 - Unspecified cirrhosis of liver Status: Acute Assessment and Plan: Related to longstanding alcohol abuse. Does not appear acutely decompensated. Plan Thrombocytopenia Portal hypertension Recent left hip fracture Poor social situation living in [facility] homeless History of seizures and delirium tremens. DVT prophylaxis SCDs Code status full code Subjective Date/time seen: 05/22/22 15:51 Interval history: HPI:This is a 36-year-old with a longstanding history of alcohol abuse, alcoholic cirrhosis, esophageal varices, Holt esophagus, and alcohol withdrawal who presented to the emergency department for evaluation of bloody stools. He was recently admitted to the hospitalist service on 05/16/2022 with alcohol withdrawal symptoms, alcoholic hepatitis, and possible SBP. At that time he admitted that he had been living in a motel for the last 6 weeks after [facility] had been since November after breaking his left hip, which has yet to be fixed. He was treated for alcohol withdrawal and possible SBP (paracentesis did not show any significant fluid to be aspirated) with improvement in his symptoms. His CIWA score trended to 0 and his LFTs started to normalize and he was discharged yesterday with prescriptions for ciprofloxacin, lactulose, spironolactone, sucralfate and folic acid. He reports feeling okay when he left and he tolerated a dinner to consist of soup and grilled cheese. Sometime last night he had a sudden urge to have a bowel movement at which time he reports passing a large amount of bright red blood. He estimates having 5 such episodes and reports that his stool is now dark maroon in color. This morning he was feeling weak and dizzy and after drinking some milk he started to feel nauseated and reports having 1 episode of emesis. Rectal exam done in the ER showed grossly bloody stool and he is being admitted in this setting. He states that he did not drink any alcohol since being discharged though his alcohol
[2022-05-22] MEDS: ONDANSETRON INJ 4 MG/2 ML VIAL IV PUSH (18:14)
[2022-05-22] MEDS: PANTOPRAZOLE SODIUM IV 40 MG VIAL IV PUSH (20:56)
[2022-05-23] VITALS (12 sets, daily range): BP systolic 103–133; BP diastolic 58–81; PULSE 95–118; RESP 12–18; TEMP 36.2–36.8; O2SAT 97–100
[2022-05-23] MEDS: LORazepam (*CRX) 1 MG TABLET PO ×6 (01:20→22:37)
[2022-05-23] MEDS: MORPHINE SULFATE (*CRX) 2 MG/ML INJ IV PUSH ×6 (01:20→22:36)
[2022-05-23 04:48] LABS: Hematocrit 24.9 % (42.0-52.0); Hemoglobin 7.9 g/dL (14.0-18.0); Immature Platelet Fraction Pct 5.5 % (0.9-11.2); Mean Corpuscular HGB Conc 31.7 g/dl (32-36); Mean Corpuscular Volume 100.8 fl (80-100); Mean Platelet Volume 10.2 fl (7.4-10.4); Platelet Count Result 147 k/mm3 (150-375); Red Blood Count 2.47 M/mm3 (4.6-6.20); Red Cell Distribution Width 25.1 % (11.5-14.5); White Blood Count 9.7 K/mm3 (4.5-10.0)
[2022-05-23 04:57] LABS: Alanine Aminotransferase 81 U/L (6-50); Albumin Level 2.4 g/dL (3.5-5.1); Alkaline Phosphatase 97 U/L (38-126); Anion Gap 5 mmol/L (8-16); Aspartate Amino Transferase 168 U/L (17-59); Blood Urea Nitrogen 9 mg/dL (9-20); Calcium 7.6 mg/dL (8.4-10.2); Carbon Dioxide 27 mmol/L (22-30); Chloride 102 mmol/L (98-107); Estimated CRCL calculation 116 ml/min; Estimated Glomerular Filt Rate > 60; Glucose 99 mg/dL (65-110); Potassium 3.8 mmol/L (3.4-5.0); Sodium 134 mmol/L (137-145)
[2022-05-23 04:58] LABS: Magnesium 1.8 mg/dL (1.6-2.3)
[2022-05-23] MEDS: chlordiazePOXIDE (*CRX) 25 MG CAPSULE 50 MG PO ×4 (05:34→23:37)
[2022-05-23] MEDS: SUCRALFATE 1 GM TABLET PO ×3 (05:35→20:05)
[2022-05-23 06:04] LABS: Band Neutrophils Percent 7 % (0-6); Eosinophils Absolute Manual 0.09 K/mm3 (0.02-0.5); Eosinophils Percent Manual 1 % (0-4); Lymphocytes Absolute Manual 2.03 K/mm3 (1.1-4.5); Lymphocytes Percent Manual 21 % (18-44); Metamyelocytes Percent 4 %; Monocytes Absolute Manual 0.87 K/mm3 (0.1-0.90); Monocytes Percent Manual 9 % (3-9); Myelocytes Percent 4 %; Neutrophils Absolute Manual 5.91 K/mm3 (1.3-6.7); Neutrophils Percent Manual 54 % (46-73); Nucleated Red Blood Cells 1 %; Total Cells Counted 100
[2022-05-23 06:07] LABS: Anisocytosis 3+ (NORMAL); Hypochromasia 1+ (NORMAL)
[2022-05-23 06:08] LABS: Platelet Estimate Adequate (Adequate); Target Cells 1+ (NORMAL)
--- NOTE | 2022-05-23 08:40 | PM.IMPN ---
Progress Note: A&P Assessment and Plan (1) GI bleed: Code(s): K92.2 - Gastrointestinal hemorrhage, unspecified Status: Acute Assessment and Plan: Patient reports bright red blood per rectum and he is now passing dark maroon stools. History of better doses of Parres as/esophageal paresis Protonix drip and octreotide drip started EGD 05/22/2022 grade 2 pheresis moderate size in distal esophagus. Varices were not actively bleeding and did not find stigmata of recent bleeding. The pheresis at 2 columns. The speed band 7 was used to splay C3 plans. Procedure was successful. Of 4 cm Holt's mucosa was present in the distal esophagus. I did not take biopsies because he has paresis moderate gastritis seen in the stomach. Gastritis as moderate edematous and portal hypertensive changes. There was no mucosal bleeding. The bulb and 2nd portion of duodenum was normal with no ulcers or masses. No stigmata of recent bleeding. H&H lowered down to 6.9 status post 1 unit of PRBC transfusion 05/21/2022 -05/23/22 EGD showed grade II esophageal varices, had banding, no evidence of bleeding, gastritis. GI recommends continue octreotide ggt through 05/24. Small amount of blood reported this morning but hemoglobin and hematocrit are stable. Will monitor for now. (2) Transaminitis: Code(s): R74.01 - Elevation of levels of liver transaminase levels Status: Acute Assessment and Plan: Related to alcoholic liver disease. LFT similar to yesterday maybe a little higher. Will monitor. -Appreciate recommendations from GI (3) Acute on chronic anemia: Code(s): D64.9 - Anemia, unspecified Status: Acute Assessment and Plan: Secondary to acute blood loss on chronic anemia. Transfuse 1 unit PRBC 05/21/2022 -05/23/22 H/H stable. (4) Alcohol abuse: Code(s): F10.10 - Alcohol abuse, uncomplicated Status: Chronic Assessment and Plan: He did not drink any meaningful amounts of alcohol in the last 24 hours that he was discharged thus he should not have significant withdrawal symptoms. He is calm and cooperative at the time my evaluation. Continue thiamin and folic acid supplementation. On Librium as well -WA protocol -Lorazepam PRN -Chlordiazepoxide scheduled 50 mg q6h (5) Cirrhosis: Code(s): K74.60 - Unspecified cirrhosis of liver Status: Acute Assessment and Plan: Related to longstanding alcohol abuse. Does not appear acutely decompensated. -Ceftiraxone for SBP prophylaxis. Holding rifaximin for now Plan Thrombocytopenia - Will montior. Portal hypertension - esophageal varices noted on EGD. Recent left hip fracture - chronic Poor social situation living in [facility] homeless History of seizures and delirium tremens. DVT prophylaxis SCDs Code status full code Subjective Date/time seen: 05/23/22 08:40 Patient says he does not feel well. Says he needs his rifaximin for his hallucinations. Says he had two small drops of blood pass from his rectum this morning. Nurse is present and was not aware of this. Exam Narrative: GENERAL: NAD, cooperative HEENT: Normocephalic, atraumatic, scleral icterus NECK: Supple CV: Normal S1, S2, RRR, No MRG RESP: CTAB, Normal work of breathing. Abdomen: Soft, non-tender, non-distended EXTREMITIES: Warm and well perfused, no clubbing, cyanosis, or edema. SKIN: warm, dry and intact. NEURO: CN 2-12 grossly intact Objective Data Vital Signs Vital Signs: Vital Signs - 24 hr 05/22/22 08:45 05/22/22 09:58 05/22/22 11:04 Temperature 98.5 F 98.1 F Pulse Rate 100 97 103 H Respiratory Rate 16 18 22 H Blood Pressure 126/62 101/60 112/81 Pulse Oximetry 100 100 100 Oxygen Delivery Room Air Room Air 05/22/22 11:14 05/22/22 11:24 05/22/22 11:59 Temperature 97.7 F Pulse Rate 98 94 91 Respiratory Rate 23 H 24 H 18 Blood Pressure 116/79 108/76 121/67 Pulse Oximetry 100 99 100 Oxygen Leonila
[2022-05-23] MEDS: FOLIC ACID 1 MG TABLET PO (09:27)
[2022-05-23] MEDS: FERROUS SULFATE 324 MG TABLET PO (09:27)
[2022-05-23] MEDS: PANTOPRAZOLE SODIUM IV 40 MG VIAL IV PUSH ×2 (09:27→20:05)
[2022-05-23] MEDS: THIAMINE HCL 100 MG TABLET PO (09:27)
--- NOTE | 2022-05-23 10:45 | WPDANESPN ---
Anes - Prog Note Post-Op Date/Time: 05/23/22 10:45 Cardiovascular status: normal Respiratory status: normal Airway patency: baseline Mental status: baseline Post-Op hydration status: normal Vital Signs: Last Vital Signs Temp 36.8 C 05/23/22 08:00 Pulse 107 H 05/23/22 10:00 Resp 12 05/23/22 08:00 BP 103/75 05/23/22 08:00 Pulse Ox 99 05/23/22 08:00 O2 Del Method Room Air 05/23/22 08:00 Pain Score (VAS): 0/10 I/O: Intake & Output 05/22/22 05/23/22 05/23/22 23:59 07:59 15:59 Intake Total 1690 1085 255 Output Total 1350 500 Balance 340 585 255 Laboratory Tests 05/23/22 04:36 05/23/22 04:36 05/23/22 05/23/22 05/23/22 04:36 04:36 04:36 WBC 9.7 RBC 2.47 L Hgb 7.9 L Hct 24.9 L MCV 100.8 H MCH 32.0 D MCHC 31.7 L RDW 25.1 H Plt Count 147 L MPV 10.2 Immature Gran % (Auto) Not Reportable Neut % (Auto) Not Reportable Lymph % (Auto) Not Reportable Hamlin % (Auto) Not Reportable Eos % (Auto) Not Reportable Baso % (Auto) Not Reportable Lymph # (Auto) Not Reportable Hamlin # (Auto) Not Reportable Eos # (Auto) Not Reportable Baso # (Auto) Not Reportable Abs Immat Gran (auto) Not Reportable Absolute Neuts (auto) Not Reportable Absolute Nucleated RBC Not Reportable Total Counted 100 Neutrophils % (Manual) 54 Band Neutrophils % 7 H Lymphocytes % (Manual) 21 Monocytes % (Manual) 9 Eosinophils % (Manual) 1 Metamyelocytes % 4 Myelocytes % 4 Nucleated RBC % Not Reportable Abs Neuts (Manual) 5.91 Abs Lymphs (Manual) 2.03 Abs Monocytes (Manual) 0.87 Absolute Eos (Manual) 0.09 Nucleated RBCs 1 Platelet Estimate Adequate % Immature Plt Fraction 5.5 Hypochromasia 1+ Anisocytosis 3+ Target Cells 1+ Sodium 134 L Potassium 3.8 Chloride 102 Carbon Dioxide 27 Anion Gap 5 L BUN 9 D Creatinine 0.70 Estim Creat Clear Calc 116 Estimated GFR > 60 Glucose 99 Calcium 7.6 L Magnesium 1.8 Total Bilirubin 3.0 H AST 168 H ALT 81 H Alkaline Phosphatase 97 Total Protein 5.0 L Albumin 2.4 L Post-procedural complaints: none Patient Feedback: Patient satisfied with anesthetic care.
--- NOTE | 2022-05-23 11:50 | WPDGIPROGNO ---
Progress Note: A&P Assessment and Plan (1) GI bleed: Code(s): K92.2 - Gastrointestinal hemorrhage, unspecified Status: Acute Assessment and Plan: no more signs of bleeding but found EV again, s/p banding continue octreotide iv, also iv protonix (2) Acute on chronic anemia: Code(s): D64.9 - Anemia, unspecified Status: Acute Assessment and Plan: monitor for more signs of bleeding probably at some point will be important to do a colonoscopy since never had one (3) Esophageal varices: Code(s): I85.00 - Esophageal varices without bleeding Status: Acute Assessment and Plan: s/p banding egd in 6 weeks (probably can do colonoscopy at same time) (4) Cirrhosis: Code(s): K74.60 - Unspecified cirrhosis of liver Status: Acute Assessment and Plan: alcoholic related recent ultrasound no ascites nutritional support stop drinking thiamine, mvi (5) Portal hypertension: Code(s): K76.6 - Portal hypertension Status: Acute (6) Holt's esophagus with esophagitis: Code(s): K22.70 - Holt's esophagus without dysplasia; K20.90 - Esophagitis, unspecified without bleeding Status: Acute Assessment and Plan: on ppi Subjective Date/time seen: 05/23/22 11:50 Interval history: egd yesterday showed non-bleeding EV s/p banding and PHG no more bleeding and tolerating diet Review of Systems Review of Systems: All systems reviewed & are unremarkable except as noted in HPI and below Exam Narrative: General: Chronically ill male appearing a bit older than his stated age supine in bed in no distress. HEENT: Normocephalic, atraumatic. PERRL, EOMI. Mild conjunctival icterus. Tacky mucous membranes. Poor dentition. Neck: Supple. Nontender Respiratory: Lungs are clear to auscultation bilaterally. No respiratory distress Cardiovascular: Regular rate and rhythm with S1-S2. Gastrointestinal: Abdomen is soft, nontender, positive bowel sounds. Skin: Warm and dry. Generalized pallor, slightly jaundiced. Extremities: No cyanosis, clubbing, or significant edema. Radial and pedal pulses intact. Neurological: Alert and oriented Cranial nerves 2-12 are grossly intact. Speech is clear. No tremors. No gross focal deficits to casual conversation. Psychiatric: Pleasant and cooperative. Appropriate mood and affect. Objective Data Vital Signs Vital Signs: Vital Signs - 24 hr 05/22/22 11:59 05/22/22 12:00 05/22/22 12:00 Temperature 97.7 F Pulse Rate 91 94 Respiratory Rate 18 Blood Pressure 121/67 Pulse Oximetry 100 Oxygen Delivery Room Air 05/22/22 14:00 05/22/22 16:00 05/22/22 16:00 Temperature 98.4 F Pulse Rate 107 H 107 H Respiratory Rate 16 Blood Pressure 122/68 Pulse Oximetry 99 Oxygen Delivery Room Air 05/22/22 16:00 05/22/22 18:00 05/22/22 20:00 Temperature 97.8 F Pulse Rate 106 H 97 96 Respiratory Rate 16 Blood Pressure 125/68 Pulse Oximetry 98 Oxygen Delivery 05/22/22 20:00 05/22/22 20:00 05/22/22 21:29 Temperature Pulse Rate 104 H 103 H Respiratory Rate Blood Pressure Pulse Oximetry Oxygen Delivery Room Air 05/22/22 23:57 05/23/22 00:00 05/23/22 00:00 Temperature 97.2 F L Pulse Rate 100 95 Respiratory Rate 16 Blood Pressure 118/72 Pulse Oximetry 100 Oxygen Delivery Room Air 05/23/22 01:43 05/23/22 04:00 05/23/22 04:00 Temperature Pulse Rate 100 101 H Respiratory Rate Blood Pressure Pulse Oximetry Oxygen Delivery Room Air 05/23/22 04:00 05/23/22 06:00 05/23/22 08:00 Temperature 97.7 F Pulse Rate 99 98 Respiratory Rate 18 Blood Pressure 108/58 L Pulse Oximetry 97 Oxygen Delivery Room Air 05/23/22 08:00 05/23/22 08:00 05/23/22 10:00 Temperature 98.3 F Pulse Rate 102 H 106 H 107 H Respiratory Rate 12 Blood Pressure 103/75 Pulse Oximetry 99 Oxygen Delivery Intake/Output
--- NOTE | 2022-05-23 20:38 | PC.NURSE ---
Pt wanted nguyen out, explained that any inflammation from putting nguyen in could cause retention and it would likely be more difficult/painful to put another nguyen in if necessary. Pt understands the risk.
[2022-05-24] VITALS (20 sets, daily range): BP systolic 99–128; BP diastolic 43–93; PULSE 89–118; RESP 12–22; TEMP 36.2–37.3; O2SAT 91–100
[2022-05-24 04:47] LABS: Hematocrit 21.1 % (42.0-52.0); Immature Platelet Fraction Pct 5.7 % (0.9-11.2); Mean Corpuscular HGB Conc 31.8 g/dl (32-36); Mean Corpuscular Hemoglobin 32.1 pg (26-34); Mean Platelet Volume 10.8 fl (7.4-10.4); Platelet Count Result 128 k/mm3 (150-375); Red Blood Count 2.09 M/mm3 (4.6-6.20); Red Cell Distribution Width 24.7 % (11.5-14.5); White Blood Count 8.6 K/mm3 (4.5-10.0)
[2022-05-24 05:01] LABS: INR 1.3; Prothrombin Time 15.5 Seconds (11.1-14.7)
[2022-05-24 05:02] LABS: Alanine Aminotransferase 72 U/L (6-50); Albumin Level 2.2 g/dL (3.5-5.1); Alkaline Phosphatase 112 U/L (38-126); Anion Gap 4 mmol/L (8-16); Aspartate Amino Transferase 126 U/L (17-59); Bilirubin,Total 1.9 mg/dL (0.2-1.3); Blood Urea Nitrogen 7 mg/dL (9-20); Calcium 7.2 mg/dL (8.4-10.2); Carbon Dioxide 26 mmol/L (22-30); Chloride 103 mmol/L (98-107); Estimated CRCL calculation 134 ml/min; Estimated Glomerular Filt Rate > 60; Glucose 98 mg/dL (65-110); Sodium 133 mmol/L (137-145)
[2022-05-24 05:26] LABS: Hemoglobin 6.7 g/dL (14.0-18.0)
[2022-05-24 05:34] LABS: Anisocytosis 2+ (NORMAL); Band Neutrophils Percent 5 % (0-6); Basophils Absolute Manual 0.17 K/mm3 (0.0-0.1); Basophils Percent Manual 2 % (0-1); Eosinophils Absolute Manual 0.08 K/mm3 (0.02-0.5); Eosinophils Percent Manual 1 % (0-4); Lymphocytes Absolute Manual 1.72 K/mm3 (1.1-4.5); Macrocytosis 2+ (NORMAL); Monocytes Absolute Manual 1.03 K/mm3 (0.1-0.90); Monocytes Percent Manual 12 % (3-9); Neutrophils Absolute Manual 5.59 K/mm3 (1.3-6.7); Neutrophils Percent Manual 60 % (46-73); Nucleated Red Blood Cells 1 %; Platelet Estimate Decreased (Adequate); Total Cells Counted 100
[2022-05-24 05:35] LABS: Hypochromasia 1+ (NORMAL)
[2022-05-24 05:36] LABS: Target Cells 1+ (NORMAL)
[2022-05-24] MEDS: SUCRALFATE 1 GM TABLET PO ×3 (06:02→21:08)
[2022-05-24] MEDS: chlordiazePOXIDE (*CRX) 25 MG CAPSULE 50 MG PO ×2 (06:02→12:20)
[2022-05-24 07:58] LABS: Hematocrit 21.9 % (42.0-52.0)
[2022-05-24] MEDS: PANTOPRAZOLE SODIUM IV 40 MG VIAL IV PUSH ×2 (09:09→21:08)
[2022-05-24] MEDS: THIAMINE HCL 100 MG TABLET PO (09:10)
[2022-05-24] MEDS: FOLIC ACID 1 MG TABLET PO (09:10)
[2022-05-24] MEDS: FERROUS SULFATE 324 MG TABLET PO (09:10)
[2022-05-24] MEDS: LORazepam (*CRX) 1 MG TABLET PO (09:11)
[2022-05-24] MEDS: MORPHINE SULFATE (*CRX) 2 MG/ML INJ IV PUSH (09:12)
--- NOTE | 2022-05-24 11:36 | WPDGIPROGNO ---
Progress Note: A&P Assessment and Plan (1) GI bleed: Code(s): K92.2 - Gastrointestinal hemorrhage, unspecified Status: Acute Assessment and Plan: no more signs of bleeding but found EV again, s/p banding discontinue octreotide iv tomorrow, iv protonix (2) Acute on chronic anemia: Code(s): D64.9 - Anemia, unspecified Status: Acute Assessment and Plan: monitor for more signs of bleeding will do a colonoscopy tomorrow since he reported on admission large amount of brbpr and never had one (3) Esophageal varices: Code(s): I85.00 - Esophageal varices without bleeding Status: Acute Assessment and Plan: s/p banding egd in 6 weeks tolerating diet (4) Cirrhosis: Code(s): K74.60 - Unspecified cirrhosis of liver Status: Acute Assessment and Plan: alcoholic related recent ultrasound no ascites nutritional support stop drinking thiamine, mvi (5) Portal hypertension: Code(s): K76.6 - Portal hypertension Status: Acute (6) Holt's esophagus with esophagitis: Code(s): K22.70 - Holt's esophagus without dysplasia; K20.90 - Esophagitis, unspecified without bleeding Status: Acute Assessment and Plan: on ppi Subjective Date/time seen: 05/24/22 11:36 Interval history: denies overt gib but hb down to 7 (reported on admission brbpr), still feeling weak Review of Systems Review of Systems: All systems reviewed & are unremarkable except as noted in HPI and below Exam Narrative: General: Chronically ill male appearing a bit older than his stated age supine in bed in no distress. HEENT: Normocephalic, atraumatic. PERRL, EOMI. Mild conjunctival icterus. Tacky mucous membranes. Poor dentition. Neck: Supple. Nontender Respiratory: Lungs are clear to auscultation bilaterally. No respiratory distress Cardiovascular: Regular rate and rhythm with S1-S2. Gastrointestinal: Abdomen is soft, nontender, positive bowel sounds. Skin: Warm and dry. Generalized pallor, slightly jaundiced. Extremities: No cyanosis, clubbing, or significant edema. Radial and pedal pulses intact. Neurological: Alert and oriented Cranial nerves 2-12 are grossly intact. Speech is clear. No tremors. No gross focal deficits to casual conversation. Psychiatric: Pleasant and cooperative. Appropriate mood and affect. Objective Data Vital Signs Vital Signs: Vital Signs - 24 hr 05/23/22 12:00 05/23/22 12:00 05/23/22 12:00 Temperature 98.3 F Pulse Rate 118 H 110 H Respiratory Rate 12 Blood Pressure 127/81 Pulse Oximetry 100 Oxygen Delivery Room Air 05/23/22 16:00 05/23/22 14:00 05/23/22 16:00 Temperature Pulse Rate 107 H 105 H Respiratory Rate Blood Pressure Pulse Oximetry Oxygen Delivery Room Air 05/23/22 16:00 05/23/22 18:00 05/23/22 20:00 Temperature 97.6 F 97.7 F Pulse Rate 106 H 111 H 117 H Respiratory Rate 12 16 Blood Pressure 116/71 133/81 Pulse Oximetry 98 98 Oxygen Delivery 05/23/22 20:00 05/24/22 00:00 05/24/22 00:00 Temperature 97.6 F Pulse Rate 117 H Respiratory Rate 16 Blood Pressure 127/90 Pulse Oximetry 100 Oxygen Delivery Room Air Room Air 05/23/22 20:00 05/23/22 22:00 05/24/22 00:00 Temperature Pulse Rate 108 H 113 H 112 H Respiratory Rate Blood Pressure Pulse Oximetry Oxygen Delivery 05/24/22 02:00 05/24/22 04:00 05/24/22 04:00 Temperature Pulse Rate 102 H 108 H Respiratory Rate Blood Pressure Pulse Oximetry Oxygen Delivery Room Air 05/24/22 04:00 05/24/22 06:00 05/24/22 08:00 Temperature 97.2 F L 98.7 F Pulse Rate 107 H 113 H 107 H Respiratory Rate 16 12 Blood Pressure 115/64 117/57 L Pulse Oximetry 99 96 Oxygen Delivery 05/24/22 08:37 05/24/22 08:00 05/24/22 08:00 Temperature Pulse Rate 108 H Respiratory Rate Blood Pressure Pulse Oximetry 91 Oxygen Delivery Room Air Room A
--- NOTE | 2022-05-24 12:34 | PM.IMPN ---
Progress Note: A&P Assessment and Plan (1) GI bleed: Code(s): K92.2 - Gastrointestinal hemorrhage, unspecified Status: Acute Assessment and Plan: Patient reports bright red blood per rectum. Hgb was 13-15 last admission (May 16). Patient was home for short period time before developing rectal bleeding. No imaging studies performed. Hemoglobin was 8.9 on admission his dropped 6.9 and received one unit of PRBC. hgb climbed to 8.1 but drifting down to 7.0 now. EGD on 05/22 showing grade 2 varices that were not actively bleeding and was no stigmata of recent bleeding. Banding was performed. Holt's mucosa was present in the distal esophagus. Moderate gastritis was noted but no mucosal bleeding. Patient remains on octreotide and Protonix. Colonoscopy planned for tomorrow. Continue to monitor H&H closely. Transfuse as necessary. Hgb 6.9 again so will transfuse 1U PRBC. (2) Transaminitis: Code(s): R74.01 - Elevation of levels of liver transaminase levels Status: Acute Assessment and Plan: Patient had elevated bilirubin level and alk-phos last admission that has been trending downward consistently since that time. AST/ALT also were trending down but slightly higher related to above. He has known underlying cirrhosis. Follow. (3) Acute on chronic anemia: Code(s): D64.9 - Anemia, unspecified Status: Acute Assessment and Plan: Hemoglobin last admission was 13-15 and stable. The day after discharge however hemoglobin was 8.9 felt to be acute blood loss. Does have chronic mild anemia probably related to his cirrhosis. As above. (4) Alcohol abuse: Code(s): F10.10 - Alcohol abuse, uncomplicated Status: Chronic Assessment and Plan: He did not drink any meaningful amounts of alcohol in the the time since discharge. Unlikely he will have significant withdrawal symptoms. He remains calm and cooperative. Continue thiamin and folic acid supplementation. Back off on the Librium. (5) Cirrhosis: Code(s): K74.60 - Unspecified cirrhosis of liver Status: Acute Assessment and Plan: Related to longstanding alcohol abuse. Edema noted. Spironolactone, Lasix and propranolol held. Rifaximin held as well. Will resume some of these home medications. He is having abdominal pain but this was present last admission treated with abx (but no ascites noted). He has been resumed on Rocephin. Lactulose once given his mildly confusion and since he will have a bowel prep later this evening. (6) Hip fracture: Code(s): S72.009A - Fracture of unspecified part of neck of unspecified femur, initial encounter for closed fracture Status: Acute Assessment and Plan: Patient sustained a left hip fracture in November 2021 after a fall. He was transferred to [facility] who decided against surgical intervention but told the patient he will need to get a hip replacement in June. Patient was discharged or assisted. He is doing weight-bearing to the right leg and transferring to a wheelchair. 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 Continue therapy. Continue nonweightbearing to the left lower extremity. Subjective Date/time seen: 05/24/22 12:34 Interval history: 36yo male with alcoholism and cirrhosis here for rectal bleeding. Assuming care. Chart reviewed. Patient slept off and on last night. No further rectal bleeding. No nausea or vomiting. He does complain of abdominal pain. Exam Narrative: AF 99.2 117/66 102 20 100% ra Gen - NARD lying semi-recumbent in bed Chest - CTA bilaterally, nml RR CV - RRR S1/S2. Tele showing no significant dysrhythmias Abd -soft. Protuberant. Positive bowel sounds. Diffuse guarding. Ext - 1+ pedal edema. Negative Renny
[2022-05-24 13:25] LABS: Hematocrit 21.5 % (42.0-52.0)
[2022-05-24 13:31] LABS: Hemoglobin 6.9 g/dL (14.0-18.0)
[2022-05-24] MEDS: SPIRONOLACTONE 25 MG TABLET PO (14:04)
[2022-05-24] MEDS: LACTULOSE 20 GM/30 ML UDC PO (14:04)
--- NOTE | 2022-05-24 15:19 | PCOTNOTE ---
Attempted to see pt. for occupational therapy evaluation. Per nursing, pt. hemoglobin is low and she believes it would be best to wait until after pt. has transfusion. Will follow.
[2022-05-24] MEDS: SODIUM CHLORIDE 0.9% IV 250 ML 30 ML IV CONT (16:48)
[2022-05-24] MEDS: TUBING, BLOOD PLUM PUMP TUBING 1 EACH XX (16:48)
[2022-05-24] MEDS: BISACODYL 5 MG TABLET EC PO (17:46)
[2022-05-24] MEDS: polyethylene glycoL 3350 238 GM BOTTLE PO (17:47)
[2022-05-24] MEDS: PREGABALIN (*CRX) 75 MG CAPSULE PO (17:47)
[2022-05-24] MEDS: busPIRone HCL 5 MG TABLET PO (21:08)
[2022-05-24] MEDS: PROPRANOLOL HCL 10 MG TABLET PO (21:08)
[2022-05-24] MEDS: MIRTAZAPINE 30 MG TABLET PO (21:08)
[2022-05-24 21:19] LABS: Hematocrit 25.1 % (42.0-52.0); Hemoglobin 8.1 g/dL (14.0-18.0)
[2022-05-24] MEDS: chlordiazePOXIDE (*CRX) 25 MG CAPSULE PO (22:56)
[2022-05-25] VITALS (15 sets, daily range): BP systolic 88–128; BP diastolic 45–93; PULSE 70–90; RESP 13–20; TEMP 36.1–36.9; O2SAT 94–99
--- NOTE | 2022-05-25 04:12 | PC.NURSE ---
patient has been refusing to do the colon prep. he did get some down. but became beligerant, screaming, cursing when pressed to drink it.
[2022-05-25 05:16] LABS: Basophils Absolute Auto 0.1 K/mm3 (0.0-0.1); Basophils Percent Auto 1.5 % (0.2-1.2); Eosinophils Absolute Auto 0.1 K/mm3 (0-0.3); Eosinophils Percent Auto 1.8 % (0-4.4); Hematocrit 25.8 % (42.0-52.0); Hemoglobin 8.4 g/dL (14.0-18.0); Immature Granulocyte Absolute 0.26 K/mm3 (0.00-0.031); Immature Granulocyte Percent A 3.8 % (0-0.5); Immature Platelet Fraction Pct 4.2 % (0.9-11.2); Lymphocytes Absolute Auto 1.23 K/mm3 (0.9-3.2); Lymphocytes Percent Auto 18.1 % (18.3-44.2); Mean Corpuscular HGB Conc 32.6 g/dl (32-36); Mean Corpuscular Hemoglobin 31.9 pg (26-34); Mean Corpuscular Volume 98.1 fl (80-100); Mean Platelet Volume 10.6 fl (7.4-10.4); Monocytes Percent Auto 15.2 % (2.6-8.5); Neutrophils Percent Auto 59.6 % (45.5-73.1); Nucleated Red Blood Cells Perc 0.6 % (0.0-0.2); Platelet Count Result 139 k/mm3 (150-375); Red Blood Count 2.63 M/mm3 (4.6-6.20); Red Cell Distribution Width 25.3 % (11.5-14.5); White Blood Count 6.8 K/mm3 (4.5-10.0)
[2022-05-25 05:30] LABS: Alanine Aminotransferase 65 U/L (6-50); Albumin Level 2.3 g/dL (3.5-5.1); Alkaline Phosphatase 131 U/L (38-126); Anion Gap 6 mmol/L (8-16); Aspartate Amino Transferase 113 U/L (17-59); Bilirubin,Total 1.9 mg/dL (0.2-1.3); Blood Urea Nitrogen 5 mg/dL (9-20); Calcium 7.5 mg/dL (8.4-10.2); Carbon Dioxide 25 mmol/L (22-30); Chloride 106 mmol/L (98-107); Estimated CRCL calculation 134 ml/min; Estimated Glomerular Filt Rate > 60; Glucose 106 mg/dL (65-110); Magnesium 1.9 mg/dL (1.6-2.3); Phosphorus 3.4 mg/dL (2.5-4.5); Sodium 137 mmol/L (137-145)
[2022-05-25] MEDS: SUCRALFATE 1 GM TABLET PO ×3 (05:50→20:56)
[2022-05-25 05:58] LABS: Anisocytosis 1+ (NORMAL); Macrocytosis 1+ (NORMAL); Polychromasia 1+ (NORMAL)
--- NOTE | 2022-05-25 08:33 | PCOTNOTE ---
Attempted OT evaluation, sleeping soundly, unable to wake up at this time, will attempt at later time.
[2022-05-25] MEDS: FOLIC ACID 1 MG TABLET PO (09:56)
[2022-05-25] MEDS: THIAMINE HCL 100 MG TABLET PO (09:56)
[2022-05-25] MEDS: FERROUS SULFATE 324 MG TABLET PO (09:56)
[2022-05-25] MEDS: SPIRONOLACTONE 25 MG TABLET PO (09:57)
[2022-05-25] MEDS: PROPRANOLOL HCL 10 MG TABLET PO ×2 (09:57→20:56)
[2022-05-25] MEDS: PANTOPRAZOLE SODIUM IV 40 MG VIAL IV PUSH ×2 (09:57→20:56)
[2022-05-25] MEDS: busPIRone HCL 5 MG TABLET PO ×2 (09:58→20:56)
[2022-05-25] MEDS: chlordiazePOXIDE (*CRX) 25 MG CAPSULE PO ×2 (10:10→20:56)
[2022-05-25] MEDS: PREGABALIN (*CRX) 75 MG CAPSULE PO ×2 (10:15→16:49)
--- NOTE | 2022-05-25 11:06 | PM.IMPN ---
Progress Note: A&P Assessment and Plan (1) GI bleed: Code(s): K92.2 - Gastrointestinal hemorrhage, unspecified Status: Acute Assessment and Plan: Patient reports bright red blood per rectum. Hgb was 13-15 last admission (May 16). Patient was at the hotel for short period time before developing rectal bleeding. No imaging studies performed here. Hemoglobin was 8.9 on admission his dropped 6.9 and received one unit of PRBC on 05/22. hgb climbed to 8.1 but drifting down to 6.9 and received a 2nd unit (05/24) now. EGD on 05/22 showing grade 2 varices that were not actively bleeding and there was no stigmata of recent bleeding. Banding was performed. Holt's mucosa was present in the distal esophagus. Moderate gastritis was noted but no mucosal bleeding. Patient treated with octreotide and Protonix. Colonoscopy planned for today but refused prep overnight. Continue PPI and Carafate. RN spoke to the patient about cancelling the procedure but now he appears to want to proceed with colonoscopy. Bowel prep with enema ordered. (2) Transaminitis: Code(s): R74.01 - Elevation of levels of liver transaminase levels Status: Acute Assessment and Plan: Patient had elevated bilirubin level and alk-phos last admission that has been trending downward consistently since that time. AST/ALT also were trending down mostly. [place] related to alcoholic hepatitis. He also has known underlying cirrhosis. Follow. (3) Acute on chronic anemia: Code(s): D64.9 - Anemia, unspecified Status: Acute Assessment and Plan: Hemoglobin last admission was 13-15 and was stable. The day after discharge however hemoglobin was 8.9 felt to be acute blood loss. Does have chronic mild anemia probably related to his cirrhosis. As above. Continue iron. (4) Alcohol abuse: Code(s): F10.10 - Alcohol abuse, uncomplicated Status: Chronic Assessment and Plan: He did not drink any meaningful amounts of alcohol in the the time since discharge. Unlikely he will have significant withdrawal symptoms. He remains calm and cooperative. Continue thiamin and folic acid supplementation. Librium available as needed (5) Cirrhosis: Code(s): K74.60 - Unspecified cirrhosis of liver Status: Acute Assessment and Plan: Related to longstanding alcohol abuse. Spironolactone, Lasix, Rifaximin and propranolol were held. We resumed some of these home medications and advanced them as he toerlated. He is having abdominal pain but this was present last admission treated with abx (but no ascites noted) and was discharged home on Cipro. He was resumed on Rocephin this admission. (6) Hip fracture: Code(s): S72.009A - Fracture of unspecified part of neck of unspecified femur, initial encounter for closed fracture Status: Acute Assessment and Plan: Patient sustained a left hip fracture in November 2021 after a fall. He was transferred to [facility] who decided against surgical intervention but told the patient he will need to get a hip replacement in June. Patient was discharged to snf but ultimately signed himself out against medcial advise. He is non-weight bearing to the left leg; he can weight-bearing to the right leg and transfer to a wheelchair. 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 Continue therapy. Continue nonweightbearing to the left lower extremity. Plan DVT Prophylaxis: SCDs Code status: Full Diet: NPO Subjective Date/time seen: 05/25/22 11:06 Interval history: 36yo male with alcoholism and cirrhosis here for rectal bleeding. Patient refuse bowel prep overnight. Patient refuses to provide history in this morning. He does refuse part of the exam as well. Patient makes threa
--- NOTE | 2022-05-25 13:37 | PC.NURSE ---
pt sleeping at this time- attempted to wake pt to do assessment and pt told this nurse to elliot stewart me alone - pt returned to sleep
--- NOTE | 2022-05-25 13:40 | PC.NURSE ---
0945- woke pt up- pt to have a colonoscopy today but did not finish prep- asked pt about colon test and he stated he wanted it done and wanted to finish prep; GI lab staff informed-
[2022-05-25] MEDS: LACTATED RINGERS 1,000 ML 150 ML IV CONT (14:12)
--- NOTE | 2022-05-25 14:23 | WPDANESEPPF ---
Anes - Initial Pre Proc Eval Procedure: Operation Date: 05/22/22 13:30 Proposed Procedures p Esophagogastroduodenoscopy - Eric Oconnell MD Operation Date: 05/25/22 15:45 Proposed Procedures p Colonoscopy - Eric Oconnell MD Date/Time: 05/25/22 14:23 Surgeon: Karsten Gottlieb MD Pre Op Diagnosis: gi bleed Patient Data Age: 36 Gender: M Height: 1.7 m Weight: 82 kg Last Vital Signs Temp 97.3 F L 05/25/22 14:08 Pulse 70 05/25/22 14:08 Resp 17 05/25/22 14:08 BP 101/61 05/25/22 14:08 Pulse Ox 98 05/25/22 14:08 O2 Del Method Room Air 05/25/22 14:08 Allergies Allergy/AdvReac Type Severity Reaction Status Date / Time peanut Allergy Severe Anaphylaxis Verified 05/22/22 09:57 mushroom AdvReac Unknown Verified 05/22/22 09:57 Home Medications Medication Instructions Recorded Confirmed Type folic acid 1 mg tablet 1 mg PO DAILY #30 tabs 04/11/21 05/22/22 Rx pantoprazole 40 mg tablet,delayed 40 mg PO Q12HR #60 tabs 04/11/21 05/22/22 Rx release thiamine HCl (vitamin B1) 100 mg 100 mg PO DAILY 04/20/21 05/22/22 History tablet ondansetron HCl 4 mg tablet 4 mg PO Q8H PRN nausea and 05/08/21 05/22/22 Rx (Zofran) vomiting #90 tabs buspirone 5 mg tablet 5 mg PO Q12HR #60 tabs 06/22/21 05/22/22 Rx propranolol 10 mg tablet 10 mg PO Q12HR #60 tabs 06/22/21 05/22/22 Rx furosemide 20 mg tablet (Lasix) 60 mg PO QAM 1 month #90 tabs 08/28/21 05/22/22 Rx tramadol 50 mg tablet 50 mg PO TID PRN Pain 08/28/21 05/22/22 History melatonin 3 mg tablet 3 mg PO HS PRN Insomnia 09/15/21 05/22/22 History mirtazapine 30 mg tablet 30 mg PO HS 09/15/21 05/22/22 History pregabalin 75 mg capsule 75 mg PO BID 11/11/21 05/22/22 History dronabinol 2.5 mg capsule (Marinol) 2.5 mg PO DAILY #30 caps 11/12/21 05/22/22 Rx ferrous sulfate 325 mg (65 mg 325 mg PO DAILY 11/12/21 05/22/22 History iron) tablet rifaximin 550 mg tablet (Xifaxan) 550 mg PO DAILY 11/12/21 05/22/22 History baclofen 10 mg tablet 10 mg PO DAILY 01/22/22 05/22/22 History ciprofloxacin HCl 500 mg tablet 500 mg PO Q12H 3 days #6 tabs 05/20/22 05/22/22 Rx (Cipro) lactulose 10 gram/15 mL oral 20 g (30 mL) PO TID 30 days #2,700 05/20/22 05/22/22 Rx solution mL spironolactone 50 mg tablet 150 mg PO DAILY 30 days #90 tabs 05/20/22 05/22/22 Rx (Aldactone) sucralfate 1 gram tablet 1 g PO ACHS 30 days #120 tabs 05/20/22 05/22/22 Rx Laboratory Tests 05/21/22 05/24/22 05/25/22 15:18 21:07 04:41 WBC 6.8 K/mm3 K/mm3 (4.5-10.0) RBC 2.63 M/mm3 L M/mm3 (4.6-6.20) Hgb 8.1 g/dL L g/dL 8.4 g/dL L g/dL (14.0-18.0) (14.0-18.0) Hct 25.1 % L % 25.8 % L % (42.0-52.0) (42.0-52.0) MCV 98.1 fl fl (80-100) MCH 31.9 pg pg (26-34) MCHC 32.6 g/dl g/dl (32-36) RDW 25.3 % H % (11.5-14.5) Plt Count 139 k/mm3 L k/mm3 (150-375) MPV 10.6 fl H fl (7.4-10.4) Immature Gran % (Auto) 3.8 % H % (0-0.5) Neut % (Auto) 59.6 % % (45.5-73.1) Lymph % (Auto) 18.1 % L % (18.3-44.2) [place] % (Auto) 15.2 % H % (2.6-8.5) Eos % (Auto) 1.8 % % (0-4.4) Baso % (Auto) 1.5 % H % (0.2-1.2) Lymph # (Auto) 1.23 K/mm3 K/mm3 (0.9-3.2) [place] # (Auto) 1.0 K/mm3 H K/mm3 (0.1-0.6) Eos # (Auto) 0.1 K/mm3 K/mm3 (0-0.3) Baso # (Auto) 0.1 K/mm3 K/mm3 (0.0-0.1) Abs Immat Gran (auto) 0.26 K/mm3 H K/mm3 (0.00-0.031) Absolute Neuts (auto) 4.0 K/mm3 K/mm3 (1.3-6.7) Absolute Nucleated RBC 0.0 K/mm3 K/mm3 (0.0-0.012) Nucleated RBC % 0.6 % H % (0.0-0.2) Platelet Estimate Slightly decreased (Adequate) % Immature Plt Fraction 4.2 % % (0.9-11.2) Polychromasia 1+ (NORMAL) Anisocytosis 1+ (NORMAL) Macrocytosis 1+ (NORMAL) Sodium Po
--- NOTE | 2022-05-25 15:26 | PC.NURSE ---
1400 to GI lab via stretcher accompanied by RN in GI staff
--- NOTE | 2022-05-25 16:43 | PC.NURSE ---
[id number]- to GI lab for procedure- then returned to room; pt denies any c/o pain
[2022-05-25] MEDS: MIRTAZAPINE 30 MG TABLET PO (20:56)
[2022-05-25] MEDS: MELATONIN 3 MG TABLET PO (20:56)
[2022-05-26] VITALS (9 sets, daily range): BP systolic 102–110; BP diastolic 56–70; PULSE 85–94; RESP 16–22; TEMP 36.1–37; O2SAT 97–100
[2022-05-26 05:07] LABS: Hemoglobin 9.2 g/dL (14.0-18.0); Mean Corpuscular HGB Conc 31.7 g/dl (32-36); Mean Corpuscular Hemoglobin 32.3 pg (26-34); Mean Corpuscular Volume 101.8 fl (80-100); Platelet Count Result 184 k/mm3 (150-375); Red Blood Count 2.85 M/mm3 (4.6-6.20); Red Cell Distribution Width 26.2 % (11.5-14.5); White Blood Count 7.8 K/mm3 (4.5-10.0)
[2022-05-26 05:20] LABS: Alanine Aminotransferase 61 U/L (6-50); Albumin Level 2.5 g/dL (3.5-5.1); Alkaline Phosphatase 135 U/L (38-126); Anion Gap 7 mmol/L (8-16); Aspartate Amino Transferase 91 U/L (17-59); Bilirubin,Total 1.6 mg/dL (0.2-1.3); Blood Urea Nitrogen 6 mg/dL (9-20); Calcium 8.1 mg/dL (8.4-10.2); Carbon Dioxide 23 mmol/L (22-30); Chloride 109 mmol/L (98-107); Estimated CRCL calculation 134 ml/min; Estimated Glomerular Filt Rate > 60; Glucose 106 mg/dL (65-110); Phosphorus 4.2 mg/dL (2.5-4.5); Potassium 3.5 mmol/L (3.4-5.0); Sodium 139 mmol/L (137-145)
[2022-05-26] MEDS: chlordiazePOXIDE (*CRX) 25 MG CAPSULE PO ×2 (05:30→13:04)
[2022-05-26] MEDS: SUCRALFATE 1 GM TABLET PO ×4 (05:30→22:07)
[2022-05-26] MEDS: FERROUS SULFATE 324 MG TABLET PO (09:19)
[2022-05-26] MEDS: rifAXIMin 550 MG TABLET PO (09:19)
[2022-05-26] MEDS: busPIRone HCL 5 MG TABLET PO ×2 (09:19→20:22)
[2022-05-26] MEDS: PANTOPRAZOLE 40 MG TABLET PO ×2 (09:19→20:22)
[2022-05-26] MEDS: PROPRANOLOL HCL 10 MG TABLET PO ×2 (09:20→20:21)
[2022-05-26] MEDS: FOLIC ACID 1 MG TABLET PO (09:20)
[2022-05-26] MEDS: SPIRONOLACTONE 25 MG TABLET PO (09:21)
[2022-05-26] MEDS: THIAMINE HCL 100 MG TABLET PO (09:21)
[2022-05-26] MEDS: PREGABALIN (*CRX) 75 MG CAPSULE PO ×2 (09:22→16:48)
[2022-05-26] MEDS: LORazepam (*CRX) 1 MG TABLET PO ×2 (09:26→17:29)
--- NOTE | 2022-05-26 12:05 | PM.IMPN ---
Progress Note: A&P Assessment and Plan (1) GI bleed: Code(s): K92.2 - Gastrointestinal hemorrhage, unspecified Status: Acute Assessment and Plan: Patient reports bright red blood per rectum. Hgb was 13-15 last admission (May 16). Patient was at the hotel for short period time before developing rectal bleeding. Hemoglobin was 8.9 on admission his dropped 6.9 and received one unit of PRBC on 05/22. Hgb climbed to 8.1 but drifting down to 6.9 and received a 2nd unit (05/24). EGD on 05/22 showing grade 2 varices that were not actively bleeding and there was no stigmata of recent bleeding. Banding was performed. Holt's mucosa was present in the distal esophagus. Moderate gastritis was noted but no mucosal bleeding. Patient treated with octreotide and Protonix. Colonoscopy performed 05/25 showing ascending colon polyp that was resected and a few small internal hemorrhoids. hgb stable at 9.2 today. Continue PPI and Carafate. Okay for discharge. Case management working on placement. (2) Transaminitis: Code(s): R74.01 - Elevation of levels of liver transaminase levels Status: Acute Assessment and Plan: Patient had elevated bilirubin level and alk-phos last admission that has been trending downward consistently since that time. AST/ALT also were trending down mostly. [place] related to alcoholic hepatitis. He also has known underlying cirrhosis. Follow. (3) Acute on chronic anemia: Code(s): D64.9 - Anemia, unspecified Status: Acute Assessment and Plan: Hemoglobin last admission was 13-15 and was stable. The day after discharge however hemoglobin was 8.9 felt to be acute blood loss. Does have chronic mild anemia probably related to his cirrhosis. As above. Continue iron. (4) Alcohol abuse: Code(s): F10.10 - Alcohol abuse, uncomplicated Status: Chronic Assessment and Plan: He did not drink any meaningful amounts of alcohol in the the time since discharge. Unlikely he will have significant withdrawal symptoms. He remains calm and cooperative. RN states patient answering positively to [facility] questions to obtain medications. Continue thiamine and folic acid supplementation. Librium available as needed. (5) Cirrhosis: Code(s): K74.60 - Unspecified cirrhosis of liver Status: Acute Assessment and Plan: Related to longstanding alcohol abuse. Spironolactone, Lasix, Rifaximin and propranolol were held. We resumed some of these home medications and advanced them as he tolerated. He was having abdominal pain but this was present last admission treated with abx (but no ascites noted) and was discharged home on Cipro. He was resumed on Rocephin this admission and finished a course of abx. Follow. (6) Hip fracture: Code(s): S72.009A - Fracture of unspecified part of neck of unspecified femur, initial encounter for closed fracture Status: Acute Assessment and Plan: Patient sustained a left hip fracture in November 2021 after a fall. He was transferred to [facility] who decided against surgical intervention but told the patient he will need to get a hip replacement in June. Patient was discharged to longterm but ultimately signed himself out against medcial advise. He is non-weight bearing to the left leg; he can weight-bearing to the right leg and transfer to a wheelchair. 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 Continue therapy. Continue nonweightbearing to the left lower extremity. Plan DVT Prophylaxis: SCDs Code status: Full Diet: 2 gram Na diet Subjective Date/time seen: 05/26/22 12:05 Interval history: 36yo male with alcoholism and cirrhosis here for rectal bleeding. No issues overnight. Tolerated the colonoscopy yesterday. Eating no
[2022-05-26] MEDS: FUROSEMIDE 20 MG TABLET PO (13:03)
[2022-05-26] MEDS: POTASSIUM CHLORIDE 20 MEQ TABLET PO (13:03)
[2022-05-26] MEDS: LACTULOSE 20 GM/30 ML UDC PO ×2 (13:04→16:48)
--- NOTE | 2022-05-26 15:44 | WPDGIPROGNO ---
Progress Note: A&P Assessment and Plan (1) GI bleed: Code(s): K92.2 - Gastrointestinal hemorrhage, unspecified Status: Acute Assessment and Plan: no more signs of bleeding but found EV again, s/p banding s/p octreotide he can go home with protonix he is tolerating diet no objections to discharge by GI standpoint- primary team working on placement (2) Acute on chronic anemia: Code(s): D64.9 - Anemia, unspecified Status: Acute Assessment and Plan: colonoscopy also negative for bleeding h/h stable now (3) Esophageal varices: Code(s): I85.00 - Esophageal varices without bleeding Status: Acute Assessment and Plan: s/p banding egd in 6 weeks tolerating diet (4) Cirrhosis: Code(s): K74.60 - Unspecified cirrhosis of liver Status: Acute Assessment and Plan: alcoholic related recent ultrasound no ascites nutritional support stop drinking thiamine, mvi (5) Portal hypertension: Code(s): K76.6 - Portal hypertension Status: Acute (6) Holt's esophagus with esophagitis: Code(s): K22.70 - Holt's esophagus without dysplasia; K20.90 - Esophagitis, unspecified without bleeding Status: Acute Assessment and Plan: on ppi Subjective Date/time seen: 05/26/22 15:44 Interval history: colonoscopy negative for bleeding, had polyp removed. No changes otherwise, he is resting comfortably Review of Systems Review of Systems: All systems reviewed & are unremarkable except as noted in HPI and below Exam Narrative: General: Chronically ill male appearing a bit older than his stated age supine in bed in no distress. HEENT: Normocephalic, atraumatic. PERRL, EOMI. Mild conjunctival icterus. Tacky mucous membranes. Poor dentition. Neck: Supple. Nontender Respiratory: Lungs are clear to auscultation bilaterally. No respiratory distress Cardiovascular: Regular rate and rhythm with S1-S2. Gastrointestinal: Abdomen is soft, nontender, positive bowel sounds. Skin: Warm and dry. Generalized pallor, slightly jaundiced. Extremities: No cyanosis, clubbing, or significant edema. Radial and pedal pulses intact. Neurological: Alert and oriented Cranial nerves 2-12 are grossly intact. Speech is clear. No tremors. No gross focal deficits to casual conversation. Psychiatric: Pleasant and cooperative. Appropriate mood and affect. Objective Data Vital Signs Vital Signs: Vital Signs - 24 hr 05/25/22 15:52 05/25/22 16:00 05/25/22 16:00 Temperature 97.8 F Pulse Rate 77 70 Pulse Rate [Right Radial Palpation] 85 Respiratory Rate 20 20 Blood Pressure 98/70 L 119/75 Pulse Oximetry 98 94 Oxygen Delivery Room Air 05/25/22 20:00 05/25/22 20:00 05/25/22 20:00 Temperature 98.4 F Pulse Rate 70 80 Pulse Rate [Right Radial Palpation] 85 Respiratory Rate 20 18 Blood Pressure 119/75 106/70 Pulse Oximetry 94 98 Oxygen Delivery Room Air 05/25/22 20:56 05/26/22 00:00 05/26/22 00:00 Temperature 97.6 F Pulse Rate 72 87 Pulse Rate [Right Radial Palpation] 85 Respiratory Rate 18 Blood Pressure 106/70 110/68 Pulse Oximetry 100 Oxygen Delivery 05/26/22 04:00 05/26/22 04:00 05/26/22 08:00 Temperature 97.4 F L 98.6 F Pulse Rate 86 92 Pulse Rate [Right Radial Palpation] 85 Respiratory Rate 22 H 16 Blood Pressure 106/56 L 110/68 102/57 L Pulse Oximetry 97 97 Oxygen Delivery 05/26/22 09:20 05/26/22 12:00 05/26/22 13:24 Temperature Pulse Rate 92 Pulse Rate [Right Radial Palpation] 88 Respiratory Rate Blood Pressure Pulse Oximetry 97 Oxygen Delivery Room Air Intake/Output Intake/Output: Intake & Output 05/23/22 05/24/22 05/25/22 05/26/22 23:59 23:59 23:59 23:59 Intake Total 1830 2310 920 480 Output Total 1625 900 900 300 Balance 205 1410 20 180 Meds/Results Medications: Active Medications Generic Name Dose Route Start Last Admin Trade Name
--- NOTE | 2022-05-26 16:00 | PC.NURSE ---
bed received - report called to Rubina RN- pt transferred to room 321 via bed accompanied by staff- home meds/personal belongings with pt
[2022-05-26] MEDS: MIRTAZAPINE 30 MG TABLET PO (20:21)
[2022-05-26] MEDS: traMADol HCL (*CRX) 25 MG TABLET PO (23:13)
[2022-05-27] MEDS: LORazepam (*CRX) 1 MG TABLET PO ×3 (00:06→12:12)
[2022-05-27] MEDS: SUCRALFATE 1 GM TABLET PO ×4 (06:35→20:03)
[2022-05-27] MEDS: chlordiazePOXIDE (*CRX) 25 MG CAPSULE PO (06:38)
[2022-05-27 08:00] VITALS: BP 109/51; PULSE 94; RESP 20; TEMP 37; O2SAT 98
[2022-05-27 08:23] VITALS: PULSE 95
[2022-05-27] MEDS: PROPRANOLOL HCL 10 MG TABLET PO ×2 (08:23→20:02)
[2022-05-27] MEDS: PANTOPRAZOLE 40 MG TABLET PO ×2 (08:23→22:59)
[2022-05-27] MEDS: THIAMINE HCL 100 MG TABLET PO (08:23)
[2022-05-27] MEDS: SPIRONOLACTONE 25 MG TABLET PO (08:23)
[2022-05-27] MEDS: busPIRone HCL 5 MG TABLET PO ×2 (08:25→20:03)
[2022-05-27] MEDS: LACTULOSE 20 GM/30 ML UDC PO ×3 (08:25→17:01)
[2022-05-27] MEDS: PREGABALIN (*CRX) 75 MG CAPSULE PO ×2 (08:25→16:59)
[2022-05-27] MEDS: FERROUS SULFATE 324 MG TABLET PO (08:25)
[2022-05-27] MEDS: FUROSEMIDE 20 MG TABLET PO (08:25)
[2022-05-27] MEDS: FOLIC ACID 1 MG TABLET PO (08:25)
[2022-05-27] MEDS: rifAXIMin 550 MG TABLET PO (08:25)
--- NOTE | 2022-05-27 14:24 | PCPTNOTE ---
Attempted to see patient for PT at 14:20, however OT was with patient. Per [facility] will be done soon and patient is willing to work with PT once done with OT. However then ultra sound tech came to see patient. Patient unable to be seen at this time.
--- NOTE | 2022-05-27 15:29 | PM.IMPN ---
Progress Note: A&P Assessment and Plan (1) GI bleed: Code(s): K92.2 - Gastrointestinal hemorrhage, unspecified Status: Acute Assessment and Plan: Patient reports bright red blood per rectum. Hgb was 13-15 last admission (May 16). Patient was at the hotel for short period time before developing rectal bleeding. Hemoglobin was 8.9 on admission but dropped to 6.9 and received one unit of PRBC on 05/22. Hgb climbed to 8.1 but drifting down to 6.9 and received a 2nd unit (05/24). EGD on 05/22 showing grade 2 varices that were not actively bleeding and there was no stigmata of recent bleeding. Banding was performed. Holt's mucosa was present in the distal esophagus. Moderate gastritis was noted but no mucosal bleeding. Patient treated with octreotide and Protonix. Colonoscopy performed 05/25 showing ascending colon polyp that was resected and a few small internal hemorrhoids. Hgb stable at 9.2 yesterday. Continue PPI and Carafate. Okay for discharge. Case management working on placement. (2) Transaminitis: Code(s): R74.01 - Elevation of levels of liver transaminase levels Status: Acute Assessment and Plan: Patient had elevated bilirubin level and alk-phos last admission that has been trending downward consistently since that time. AST/ALT also were trending down mostly. [place] related to alcoholic hepatitis. He also has known underlying cirrhosis. Follow. (3) Acute on chronic anemia: Code(s): D64.9 - Anemia, unspecified Status: Acute Assessment and Plan: Hemoglobin last admission was 13-15 and was stable. The day after discharge however hemoglobin was 8.9 felt to be acute blood loss. Does have chronic mild anemia probably related to his cirrhosis. As above. Continue iron. (4) Alcohol abuse: Code(s): F10.10 - Alcohol abuse, uncomplicated Status: Chronic Assessment and Plan: He did not drink any meaningful amounts of alcohol in the the time since discharge. Unlikely he will have significant withdrawal symptoms. He remains calm and cooperative. RN states patient answering positively to [facility] questions to obtain medications. Continue thiamine and folic acid supplementation. Ativan available as needed. (5) Cirrhosis: Code(s): K74.60 - Unspecified cirrhosis of liver Status: Acute Assessment and Plan: Related to longstanding alcohol abuse. Spironolactone, Lasix, Rifaximin and propranolol were held. We resumed some of these home medications and advanced them as he tolerated. He was having abdominal pain but this was present last admission treated with abx (but no ascites noted) and was discharged home on Cipro. He was resumed on Rocephin this admission and finished a course of abx. Abd more distended so abd US ordered showing moderate ascites. Will advance Lasix. Follow. (6) Hip fracture: Code(s): S72.009A - Fracture of unspecified part of neck of unspecified femur, initial encounter for closed fracture Status: Acute Assessment and Plan: Patient sustained a left hip fracture in November 2021 after a fall. He was transferred to [facility] who decided against surgical intervention but told the patient he will need to get a hip replacement in June. Patient was discharged to long-term but ultimately signed himself out against medcial advise. He is non-weight bearing to the left leg; he can weight-bearing to the right leg and transfer to a wheelchair. 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 Continue therapy. Continue nonweightbearing to the left lower extremity. Trying to find placement. Plan DVT Prophylaxis: SCDs Code status: Full Diet: 2 gram Na diet Subjective Date/time seen: 05/27/22 15:29 Interval history: 36yo male with alcoh
[2022-05-27 16:00] VITALS: BP 120/67; PULSE 101; PULSE 82; RESP 20; TEMP 37.2; O2SAT 99
[2022-05-27] MEDS: LORazepam (*CRX) 0.5 MG TABLET PO (16:59)
[2022-05-27] MEDS: FUROSEMIDE INJ 40 MG/4 ML VIAL 20 MG IV PUSH (16:59)
[2022-05-27 20:00] VITALS: PULSE 92
[2022-05-27 20:02] VITALS: PULSE 92
[2022-05-27] MEDS: MIRTAZAPINE 30 MG TABLET PO (20:02)
[2022-05-27 22:00] VITALS: BP 124/75; PULSE 89; RESP 16; TEMP 37.1; O2SAT 95
[2022-05-27] MEDS: GABAPENTIN 100 MG CAPSULE PO (22:59)
[2022-05-28] MEDS: LORazepam (*CRX) 0.5 MG TABLET PO ×2 (02:59→09:31)
[2022-05-28] MEDS: SUCRALFATE 1 GM TABLET PO ×4 (05:37→20:15)
[2022-05-28] MEDS: ONDANSETRON INJ 4 MG/2 ML VIAL IV PUSH (05:39)
[2022-05-28 07:50] LABS: Basophils Absolute Auto 0.1 K/mm3 (0.0-0.1); Basophils Percent Auto 1.1 % (0.2-1.2); Eosinophils Absolute Auto 0.2 K/mm3 (0-0.3); Eosinophils Percent Auto 2.3 % (0-4.4); Hematocrit 30.4 % (42.0-52.0); Hemoglobin 9.2 g/dL (14.0-18.0); Immature Granulocyte Percent A 1.2 % (0-0.5); Lymphocytes Absolute Auto 1.11 K/mm3 (0.9-3.2); Lymphocytes Percent Auto 13.3 % (18.3-44.2); Mean Corpuscular HGB Conc 30.3 g/dl (32-36); Mean Corpuscular Hemoglobin 31.3 pg (26-34); Mean Corpuscular Volume 103.4 fl (80-100); Mean Platelet Volume 10.5 fl (7.4-10.4); Monocytes Absolute Auto 1.1 K/mm3 (0.1-0.6); Monocytes Percent Auto 13.1 % (2.6-8.5); Neutrophils Absolute Auto 5.8 K/mm3 (1.3-6.7); Platelet Count Result 197 k/mm3 (150-375); Red Blood Count 2.94 M/mm3 (4.6-6.20); Red Cell Distribution Width 24.1 % (11.5-14.5); White Blood Count 8.3 K/mm3 (4.5-10.0)
[2022-05-28 08:00] VITALS: PULSE 84
[2022-05-28 08:11] LABS: Alanine Aminotransferase 50 U/L (6-50); Albumin Level 2.7 g/dL (3.5-5.1); Alkaline Phosphatase 145 U/L (38-126); Anion Gap 7 mmol/L (8-16); Aspartate Amino Transferase 60 U/L (17-59); Bilirubin,Total 1.3 mg/dL (0.2-1.3); Blood Urea Nitrogen 8 mg/dL (9-20); Calcium 7.6 mg/dL (8.4-10.2); Carbon Dioxide 25 mmol/L (22-30); Chloride 106 mmol/L (98-107); Estimated CRCL calculation 134 ml/min; Estimated Glomerular Filt Rate > 60; Glucose 90 mg/dL (65-110); Potassium 3.6 mmol/L (3.4-5.0); Sodium 138 mmol/L (137-145)
[2022-05-28 08:49] LABS: Platelet Estimate Adequate (Adequate)
[2022-05-28 08:50] LABS: Anisocytosis 1+ (NORMAL); Macrocytosis 1+ (NORMAL); Ovalocytes 1+ (NORMAL)
[2022-05-28 09:21] VITALS: PULSE 84
[2022-05-28] MEDS: SPIRONOLACTONE 25 MG TABLET PO (09:21)
[2022-05-28] MEDS: FOLIC ACID 1 MG TABLET PO (09:21)
[2022-05-28] MEDS: PROPRANOLOL HCL 10 MG TABLET PO ×2 (09:21→20:10)
[2022-05-28] MEDS: GABAPENTIN 100 MG CAPSULE PO ×3 (09:21→17:04)
[2022-05-28] MEDS: PANTOPRAZOLE 40 MG TABLET PO ×2 (09:21→20:46)
[2022-05-28] MEDS: busPIRone HCL 5 MG TABLET PO ×2 (09:22→20:10)
[2022-05-28] MEDS: FERROUS SULFATE 324 MG TABLET PO (09:22)
[2022-05-28] MEDS: LACTULOSE 20 GM/30 ML UDC PO ×3 (09:22→17:03)
[2022-05-28] MEDS: THIAMINE HCL 100 MG TABLET PO (09:22)
[2022-05-28] MEDS: rifAXIMin 550 MG TABLET PO (09:23)
[2022-05-28] MEDS: FUROSEMIDE INJ 40 MG/4 ML VIAL 20 MG IV PUSH (09:23)
[2022-05-28] MEDS: PREGABALIN (*CRX) 75 MG CAPSULE PO ×2 (09:31→17:07)
--- NOTE | 2022-05-28 13:32 | PM.DS ---
DS: Admitting Diagnosis Discharge Date 05/28/22 Admitting Diagnosis Rectal bleeding DS: Discharge Diagnosis Discharge Diagnosis (1) GI bleed: Code(s): K92.2 - Gastrointestinal hemorrhage, unspecified Status: Acute (2) Transaminitis: Code(s): R74.01 - Elevation of levels of liver transaminase levels Status: Acute (3) Acute on chronic anemia: Code(s): D64.9 - Anemia, unspecified Status: Acute (4) Alcohol abuse: Code(s): F10.10 - Alcohol abuse, uncomplicated Status: Chronic (5) Cirrhosis: Code(s): K74.60 - Unspecified cirrhosis of liver Status: Acute (6) Hip fracture: Code(s): S72.009A - Fracture of unspecified part of neck of unspecified femur, initial encounter for closed fracture Status: Acute DS: Summary Hospital Course Reason for hospitalization: 36yo male with alcoholism and cirrhosis here for rectal bleeding. Please see H&P for details Hospital Course: Patient reports bright red blood per rectum. Hgb was 13-15 last admission (May 16).? Patient was at the hotel for short period time before developing rectal bleeding. Hemoglobin was 8.9 on admission but dropped to 6.9 and received one unit of PRBC on 05/22. Hgb climbed to 8.1 but drifting down to 6.9 and received a 2nd unit (05/24). EGD on 05/22 showing grade 2 varices that were not actively bleeding and there was no stigmata of recent bleeding.? Banding was performed.? Holt's mucosa was present in the distal esophagus.? Moderate gastritis was noted but no mucosal bleeding.? Patient was treated with octreotide and Protonix.? Colonoscopy performed 05/25 showing ascending colon polyp that was resected and a few small internal hemorrhoids. Hgb stable at 9.2. Patient had elevated bilirubin level and alk-phos last admission that has been trending downward consistently since that time. AST/ALT also were trending down mostly. [place] related to alcoholic hepatitis. He also has known underlying cirrhosis. He did not drink any meaningful amounts of alcohol in the the time since discharge. He did not have significant withdrawal symptoms. He remained calm and cooperative. His cirrhosis which is related to longstanding alcohol abuse. Spironolactone, Lasix, Rifaximin and propranolol were held. We resumed some of these home medications and advanced them as he tolerated. He was having abdominal pain but this was present last admission treated with abx (but no ascites noted) and was discharged home on Cipro. He was resumed on Rocephin this admission and finished a course of abx. Abd US showing moderate ascites related to being off his diuretics. Venous doppler negative for DVT. Patient sustained a left hip fracture in November 2021 after a fall.? He was transferred to [facility] who decided against surgical intervention but told the patient he will need to get a hip replacement in June.? Patient was discharged to retirement but ultimately signed himself out against medical advise.? He is non-weight bearing to the left leg; he can weight-bearing to the right leg and transfer to a wheelchair.? Repeat x-ray on 02/23/2022 showed chronic nonunited fracture of the left femoral neck with persistent proximal migration of the distal fragment and progressive osteolysis of the femoral head fragment.? Patient did well and was discharged to rehab facility. Status at Discharge Cognitive/behavioral status at discharge: stable Time Spent with Patient Time attestation: Total time spent providing and/or coordinating discharge services: 35 minutes Time spent: Greater than 30 minutes Exam Narrative: AF 98.8 124/75 84 16 95% ra Gen - NARD Chest - clear anteriorly, nml RR CV - RRR S1/S2 Abd -soft. mildly protuberant (but improved from yesterday), +BS Ext - trace-1+ bilateral pedal edema Psych - odd affect. Skin - Warm and dry DS: Data Data Completed and Pending Completed studies during hospitali
--- NOTE | 2022-05-28 13:48 | PCOTNOTE ---
Attempted to see patient this pm, however patient was sleeping soundly upon entering and was not disturbed for this reason.
[2022-05-28 14:00] VITALS: BP 114/63; PULSE 84; RESP 20; TEMP 36.6; O2SAT 97
[2022-05-28 15:08] LABS: EDCOVIDSCREEN Negative (Negative)
[2022-05-28 20:10] VITALS: PULSE 90
[2022-05-28] MEDS: MIRTAZAPINE 30 MG TABLET PO (20:10)
[2022-05-28 21:54] VITALS: BP 121/64; PULSE 96; RESP 14; TEMP 36.6; O2SAT 97
== END 2022-05-28 20:46 | DRG 253 ==
LOC: ANHED 15:43 → ANHIMU 20:06 → ANH3MEDSUR 05-26 16:04
PROVIDERS: Emergency Medicine; Internal Medicine; Internal Medicine Gastroenterology; Physician Assistant; Admitting Provider Family Medicine; Emergency Provider Emergency Medicine; PCP Physician Assistant; Visit Provider Internal Medicine
PROC: 0DJ08ZZ Inspection of Upper Intestinal Tract, Via Natural or Artificial Opening Endoscopic (ICD-10-PCS; CPT 43235; principal; 2022-05-22 13:30)
PROC: 0DJD8ZZ Inspection of Lower Intestinal Tract, Via Natural or Artificial Opening Endoscopic (ICD-10-PCS; CPT 45378; principal; 2022-05-25 15:45)
DX: K62.5 Hemorrhage of anus and rectum (principal); K29.70 Gastritis, unspecified, without bleeding; I85.00 Esophageal varices without bleeding; K22.70 Barrett's esophagus without dysplasia; K63.5 Polyp of colon; K64.8 Other hemorrhoids; K76.6 Portal hypertension; K70.10 Alcoholic hepatitis without ascites; K70.31 Alcoholic cirrhosis of liver with ascites; D63.8 Anemia in other chronic diseases classified elsewhere; D62 Acute posthemorrhagic anemia; F17.290 Nicotine dependence, other tobacco product, uncomplicated; F10.10 Alcohol abuse, uncomplicated; M89.552 Osteolysis, left thigh; R74.01 Elevation of levels of liver transaminase levels; S72.002K Fracture of unspecified part of neck of left femur, subsequent encounter for closed fracture with nonunion; W19.XXXD Unspecified fall, subsequent encounter; Y90.1 Blood alcohol level of 20-39 mg/100 ml; Z20.822 Contact with and (suspected) exposure to COVID-19; Z59.01 Sheltered homelessness
CPT/HCPCS: 36415; 36430; 76705; 80053; 80307; 83735; 84100; 85014; 85018; 85025; 85027; 85055; 85610; 85730; 86850; 86900; 86901; 86920; 87426; 88305; 93970; 96365; 96366; 96367; 96375; 96376; 97110; 97116; 97161; 97166; 97530; 97535; 99285; A9270; C9113; C9803; G0378; G0379; J0696; J1940; J2270; J2354; J2405; J2704; J3010; J3360; J7030; J7050; J7060; J7120; P9016; U0003; U0005

== ENCOUNTER 2022-07-08 01:18 | Day surgery (SDC) | payer OTHER, SELFPAY ==
[2022-06-24 14:32] VITALS: BMI 29.1
[2022-07-08 08:20] VITALS: BP 121/86; PULSE 71; RESP 18; TEMP 36.4; O2SAT 99; BMI 28.6
[2022-07-08] MEDS: LACTATED RINGERS 1,000 ML 150 ML IV CONT (08:43)
--- NOTE | 2022-07-08 09:00 | WPDANESEPPF ---
Anes - Initial Pre Proc Eval Procedure: Operation Date: 07/08/22 09:45 Proposed Procedures p Esophagogastroduodenoscopy - Eric Oconnell MD Date/Time: 07/08/22 09:00 Surgeon: Eric Oconnell MD Pre Op Diagnosis: esophageal varices Patient Data Age: 36 Gender: M Height: 1.7 m Weight: 83 kg Last Vital Signs Temp 36.4 C L 07/08/22 08:20 Pulse 71 07/08/22 08:20 Resp 18 07/08/22 08:20 BP 121/86 07/08/22 08:20 Pulse Ox 99 07/08/22 08:20 O2 Del Method Room Air 07/08/22 08:20 Allergies Allergy/AdvReac Type Severity Reaction Status Date / Time peanut Allergy Severe Anaphylaxis Verified 07/08/22 08:29 mushroom AdvReac Unknown Verified 07/08/22 08:29 Home Medications Medication Instructions Recorded Confirmed Type folic acid 1 mg tablet 1 mg PO DAILY #30 tabs 04/11/21 07/08/22 Rx pantoprazole 40 mg tablet,delayed 40 mg PO Q12HR #60 tabs 04/11/21 07/08/22 Rx release thiamine HCl (vitamin B1) 100 mg 100 mg PO DAILY 04/20/21 07/08/22 History tablet ondansetron HCl 4 mg tablet 4 mg PO Q8H PRN nausea and 05/08/21 07/08/22 Rx (Zofran) vomiting #90 tabs buspirone 5 mg tablet 5 mg PO Q12HR #60 tabs 06/22/21 07/08/22 Rx propranolol 10 mg tablet 10 mg PO Q12HR #60 tabs 06/22/21 07/08/22 Rx tramadol 50 mg tablet 50 mg PO BID 08/28/21 07/08/22 History melatonin 3 mg tablet 3 mg PO HS PRN Insomnia 09/15/21 07/08/22 History mirtazapine 30 mg tablet 30 mg PO HS 09/15/21 07/08/22 History ferrous sulfate 325 mg (65 mg 325 mg PO DAILY 11/12/21 07/08/22 History iron) tablet rifaximin 550 mg tablet (Xifaxan) 550 mg PO DAILY 11/12/21 07/08/22 History baclofen 10 mg tablet 10 mg PO DAILY 01/22/22 07/08/22 History lactulose 10 gram/15 mL oral 20 g (30 mL) PO TID 30 days #2,700 05/20/22 07/08/22 Rx solution mL sucralfate 1 gram tablet 1 g PO ACHS 30 days #120 tabs 05/20/22 07/08/22 Rx furosemide 20 mg tablet (Lasix) 40 mg PO QAM 1 month #90 tabs 05/28/22 07/08/22 Rx spironolactone 50 mg tablet 50 mg PO DAILY 30 days #90 tabs 05/28/22 07/08/22 Rx (Aldactone) acetaminophen 500 mg tablet 1,000 mg PO BID 06/24/22 07/08/22 History (Acetaminophen Extra Strength) calcium carbonate 500 mg calcium 500 mg PO TID 06/24/22 07/08/22 History (1,250 mg) chewable tablet cholecalciferol (vitamin D3) 125 125 mcg PO DAILY 06/24/22 07/08/22 History mcg (5,000 unit) tablet gabapentin 300 mg tablet 300 mg PO TID 06/24/22 07/08/22 History potassium chloride 20 mEq 20 meq PO DAILY 06/24/22 07/08/22 History tablet,extended release Patient hx anesthesia problems: none Family hx anesthesia problems: none Results Review: All pre-operative results and documents have been reviewed as part of the pre-operative evaluation. [facility] Past Medical History Medical History Alcohol abuse Alcoholic hepatitis Holt's esophagus with esophagitis Cirrhosis Depression with anxiety Esophageal varices Esophageal varices with bleeding Fracture of left hip Tobacco abuse Surgical History Surgical History History of esophagogastroduodenoscopy Family History Family History Mother Liver disease Cirrhosis Grandparent Heart failure Heart attack Social History Social History Social History: He has been living at a motel for last 6 weeks, prior to that he was at [place] for rehab after breaking his hip in November 2021. He smoked to half a pack a day for 18 years and at times he will still vape or chew nicotine gum. He has a longstanding history of alcohol abuse and reports drinking up to 6 pints of alcohol on the days that he binge drinks, which is apparently several times a week. No illicit substance use. He designates his father, Modesto Diaz, as his surrogate decision maker
--- NOTE | 2022-07-08 09:26 | PM.HPGS ---
History of Present Illness History of Present Illness Consent: Risks, benefits, and alternatives have been discussed and questions answered. Patient agrees to proceed with procedure. Chief complaint: esophageal varices Narrative: Lukas Diaz is a 36 year old male with alcoholic cirrhosis, last admission with melena due to EV s/p banding 04/2022, no more alcohol intake since and denies any more bleeding. Review of Systems Constitutional: Constitutional: Denies headache(s) and Denies weakness Eyes: Eyes: Denies blurry vision ENT: Reports Normal hearing present, Denies headache(s) and Denies neck pain Cardiovascular: Cardiovascular: Denies chest pain and Denies dyspnea Respiratory: Respiratory: Denies dyspnea Gastrointestinal: Gastrointestinal: Reports no additional gastrointestinal complaints Genitourinary: Genitourinary: Denies dysuria Musculoskeletal: Musculoskeletal: Denies neck pain Integumentary/Breasts: Skin/Breast: Denies dry skin Neurologic: Reports Normal hearing present, Denies headache(s) and Denies weakness Psychiatric: Psychiatric: Denies anxiety Endocrine: Endocrine: Denies change in body appearance Hematologic/Lymphatic: Hematologic/Lymphatic: Denies easy bleeding Allergic/Immunologic: Allergic/Immunologic: Denies urticaria PMFSH Past Medical History Medical History Alcohol abuse Alcoholic hepatitis Holt's esophagus with esophagitis Cirrhosis Depression with anxiety Esophageal varices Esophageal varices with bleeding Fracture of left hip Tobacco abuse Surgical History Surgical History History of esophagogastroduodenoscopy Family History Family History Mother Liver disease Cirrhosis Grandparent Heart failure Heart attack Social History Social History Social History: He has been living at a motel for last 6 weeks, prior to that he was at [facility] [facility] for rehab after breaking his hip in November 2021. He smoked to half a pack a day for 18 years and at times he will still vape or chew nicotine gum. He has a longstanding history of alcohol abuse and reports drinking up to 6 pints of alcohol on the days that he binge drinks, which is apparently several times a week. No illicit substance use. He designates his father, Modesto Diaz, as his surrogate decision maker and he wishes to be a full code. Smoking status: Current every day smoker Tobacco type: cigarettes Additional smoking assessment comments: allowed 6 cigarettes/day at alf facility Alcohol intake: former Alcohol use details: hx alcohol abuse - currently in alf facility for PT/OT - not drinking there Substance use: unknown Living arrangements: correction Additional living arrangements comments: currently at [facility] for PT/OT Spiritual care concerns: No Meds Home Medications and Allergies Home Medications Medication Instructions Recorded Confirmed Type folic acid 1 mg tablet 1 mg PO DAILY #30 tabs 04/11/21 07/08/22 Rx pantoprazole 40 mg tablet,delayed 40 mg PO Q12HR #60 tabs 04/11/21 07/08/22 Rx release thiamine HCl (vitamin B1) 100 mg 100 mg PO DAILY 04/20/21 07/08/22 History tablet ondansetron HCl 4 mg tablet 4 mg PO Q8H PRN nausea and 05/08/21 07/08/22 Rx (Zofran) vomiting #90 tabs buspirone 5 mg tablet 5 mg PO Q12HR #60 tabs 06/22/21 07/08/22 Rx propranolol 10 mg tablet 10 mg PO Q12HR #60 tabs 06/22/21 07/08/22 Rx tramadol 50 mg tablet 50 mg PO BID 08/28/21 07/08/22 History melatonin 3 mg tablet 3 mg PO HS PRN Insomnia 09/15/21 07/08/22 History mirtazapine 30 mg tablet 30 mg PO HS 09/15/21 07/08/22 History ferrous sulfate 325 mg (65 mg 325 mg PO DAILY 11/12/21 07/08/22 History iron) tablet rifaximin 550 mg tablet (Xifaxan) 550
[2022-07-08 09:43] VITALS: BP 99/61; PULSE 73; RESP 12; O2SAT 96
[2022-07-08 09:53] VITALS: BP 99/53; PULSE 70; RESP 11; O2SAT 93
[2022-07-08 10:03] VITALS: BP 103/65; PULSE 69; RESP 12; O2SAT 97
[2022-07-08 10:13] VITALS: BP 116/67; PULSE 75; RESP 20; O2SAT 95
== END 2022-07-08 10:20 | disposition home or self-care (01) ==
PROVIDERS: PCP Physician Assistant; Visit Provider Internal Medicine Gastroenterology
PROC: 0DJ08ZZ Inspection of Upper Intestinal Tract, Via Natural or Artificial Opening Endoscopic (ICD-10-PCS; CPT 43235; principal; 2022-07-08 09:45)
DX: K70.30 Alcoholic cirrhosis of liver without ascites (principal); I85.10 Secondary esophageal varices without bleeding; K21.00 Gastro-esophageal reflux disease with esophagitis, without bleeding; K22.70 Barrett's esophagus without dysplasia; K29.70 Gastritis, unspecified, without bleeding; K70.10 Alcoholic hepatitis without ascites; F41.8 Other specified anxiety disorders; F17.210 Nicotine dependence, cigarettes, uncomplicated
CPT/HCPCS: 43235; J2704; J7120

== ENCOUNTER 2022-12-14 04:39 | Inpatient (IN) | payer OTHER, SELFPAY ==
[2022-12-14] VITALS (17 sets, daily range): BP systolic 124–166; BP diastolic 82–128; PULSE 90–129; RESP 16–36; TEMP 36.5–37.1; O2SAT 91–100; BMI 30.5
--- NOTE | ~2022-12-14 | XR_ITS ---
EXAM: XR hip LT 2V w AP pelvis DATE: 12/16/2022 18:39 HISTORY: left hip pain, FX FROM 11/2021, . COMPARISON: None available. FINDINGS: Decreased mineralization. Old left femoral neck fracture, with increased anterior and supe rior displacement of the left femur. Additional fracturing of a portion of residual distal femoral ne ck cortex. No lytic or blastic lesion. Joint spaces are maintained. No erosion or periosteal change. Soft tissues within normal limits. IMPRESSION: Continued interval fracturing/collapse of the residual portion of the left femoral neck, of uncertain age. Worsening superior displacement of the proximal left femur. Reviewed, dictated and finalized at location K. OR SOFTWARE ENGINEER IMPRESSION: Continued interval fracturing/collapse of the residual portion of t he left femoral neck, of uncertain age. Worsening superior displacement of the proximal left femur.
--- NOTE | ~2022-12-14 | CT_ITS ---
Non-contrast Head CT History: Confusion, alcohol withdrawal COMPARISON: 12/17/2021 Technique: Axial non-contrast imaging of the brain was performed. Dose reduction technique was used on this scan by utilizing automated exposure control and iterative reconstruction technique. The dose -length product (DLP) was 605.33 mGy-cm. Findings: There is no evidence of intracranial hemorrhage, mass lesion, or acute infarct. Brain par enchyma appears normal. The ventricles and subarachnoid spaces are normal in size. The calvarium ap pears normal. The visualized paranasal sinuses and mastoid air cells are clear. Impression: No significant abnormality seen. Reviewed, dictated and finalized at location . CTOR OF TRAUMA Impression: No significant abnormality seen.
--- NOTE | ~2022-12-14 | CT_ITS ---
EXAMINATION: CT brain wo con DATE: 12/17/2022 13:16 INDICATION: Right-sided head injury post fall TECHNIQUE: Computed tomography (CT) of the head was performed without intravenous contrast. Sagittal and coronal reconstructions were performed. The mA was adjusted according to patient size. Iterative reconstruction technique was employed. The dose-length product was 605.33 mGy-cm. COMPARISON: head CT dated 12/14/2022 FINDINGS: No fracture. No acute intracranial hemorrhage, acute infarction or abnormal extra axial fluid collect ion. Ventricles are normal and symmetric. No mass/mass effect. The orbits, paranasal sinuses and mas toid air cells are normal. IMPRESSION: 1. Normal head CT. No fracture or acute intracranial process.. Reviewed, dictated and finalized at location A. KBOOK STITCHING MACHINE OPERATOR
--- NOTE | ~2022-12-14 | XR_ITS ---
Portable chest x-ray Comparison: 12/17/2021 Clinical History: Weakness Findings: Lungs are clear, without focal consolidation or pleural effusion. Cardiomediastinal silho uette is stable. Bones and soft tissues are unremarkable. Impression: Clear lungs. Reviewed, dictated and finalized at location . MOFORMING MACHINE OPERATOR Impression: Clear lungs.
--- NOTE | ~2022-12-14 | XR_ITS ---
XR hip LT min 2V 12/17/2022 13:19 Indication: Status post fall. Nonhealing fracture left hip. Procedure: 2 views left hip Comparison: Comparison to multiple prior studies sequentially, with oldest reviewed study dated 11/2021. Findings: There is a chronic fracture of the left femoral neck with nonunion. There is remodeling wit h resorption of the femoral neck. There is superior dislocation of the proximal aspect of the left fe mur. There is developing sclerosis of the femoral head, suspicious for avascular necrosis. 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 Reviewed, dictated and finalized at location L. 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
--- NOTE | 2022-12-14 05:33 | ECG_ITS ---
Measurements Intervals [place] Rate: 113 P: 16 WY: 112 QRS: -4 QRSD: 92 T: 32 QT: 343 QTc: 472 Interpretive Statements SINUS TACHYCARDIA WITH SHORT WY INTERVAL LOW QRS VOLTAGE IN PRECORDIAL LEADS [QRS DEFLECTION < 1.0 mV IN CHEST LEADS] NONSPECIFIC T-WAVE CHANGES ABNORMAL RHYTHM ECG COMPARED TO ECG 04/10/2021 09:30:29 NO SIGNIFICANT CHANGES Electronically Signed On 12-14-2022 12:45:07 METAL EXTRUSION SUPERVISOR by Rolando Khalil M.D.
[2022-12-14 05:44] LABS: Glucose Point of Care 109 mg/dl (65-105)
[2022-12-14] MEDS: SODIUM CHLORIDE 0.9% IV 1,000 ML 999 ML IV CONT (05:50)
[2022-12-14] MEDS: LORazepam INJ (*CRX) 2 MG/ML VIAL 1 MG IV PUSH (05:50)
[2022-12-14] MEDS: THIAMINE 500 MG/NS 100 ML 500 MG/100 ML BAG 200 MG IVPB (06:37)
[2022-12-14 06:43] LABS: Basophils Absolute Auto 0.1 K/mm3 (0.0-0.1); Basophils Percent Auto 0.9 % (0.2-1.2); Eosinophils Absolute Auto 0.1 K/mm3 (0-0.3); Eosinophils Percent Auto 0.7 % (0-4.4); Hematocrit 42.6 % (42.0-52.0); Hemoglobin 14.5 g/dL (14.0-18.0); Immature Granulocyte Absolute 0.07 K/mm3 (0.00-0.031); Immature Granulocyte Percent A 0.8 % (0-0.5); Immature Platelet Fraction Pct 6.2 % (0.9-11.2); Lymphocytes Absolute Auto 1.01 K/mm3 (0.9-3.2); Lymphocytes Percent Auto 11.3 % (18.3-44.2); Mean Corpuscular Hemoglobin 37.3 pg (26-34); Mean Corpuscular Volume 109.5 fl (80-100); Mean Platelet Volume 11.1 fl (7.4-10.4); Monocytes Absolute Auto 1.1 K/mm3 (0.1-0.6); Monocytes Percent Auto 12.5 % (2.6-8.5); Neutrophils Absolute Auto 6.6 K/mm3 (1.3-6.7); Neutrophils Percent Auto 73.8 % (45.5-73.1); Platelet Count Result 132 k/mm3 (150-375); Red Blood Count 3.89 M/mm3 (4.6-6.20); Red Cell Distribution Width 14.3 % (11.5-14.5); White Blood Count 8.9 K/mm3 (4.5-10.0)
[2022-12-14 06:51] LABS: Ammonia 31 umol/L (9-30)
[2022-12-14 06:52] LABS: Alanine Aminotransferase 76 U/L (6-50); Albumin Level 3.9 g/dL (3.5-5.1); Alkaline Phosphatase 169 U/L (38-126); Anion Gap 9 mmol/L (8-16); Aspartate Amino Transferase 95 U/L (17-59); Bilirubin,Total 1.7 mg/dL (0.2-1.3); Blood Urea Nitrogen 10 mg/dL (9-20); Calcium 8.9 mg/dL (8.4-10.2); Carbon Dioxide 25 mmol/L (22-30); Chloride 103 mmol/L (98-107); Estimated CRCL calculation 189 ml/min; Estimated Glomerular Filt Rate > 60; Ethanol < 10 mg/dL (<10); Glucose 95 mg/dL (65-110); INR 1.2; Lactic Acid Reflex 2.1 mmol/L (0.7-2.0); Lipase 233 U/L (23-300); Magnesium 1.5 mg/dL (1.6-2.3); Potassium 3.7 mmol/L (3.4-5.0); Prothrombin Time 15.1 Seconds (11.1-14.7); Sodium 137 mmol/L (137-145)
[2022-12-14 06:53] LABS: Partial Thromboplastin Time 27.5 SECONDS (22.3-36.8)
[2022-12-14 06:57] LABS: Beta-Hydroxybutyrate/Acetoacetate 2.16 mmol/L (0.02-0.27)
[2022-12-14 06:59] LABS: Appearance Urine Clear (Clear); Bilirubin Urine 2+ (Negative); Blood Urine Negative (Negative); Glucose Urine UA Negative (Negative); Ketones Urine 1+ mg/dL (Negative); Leukocyte Esterase Ur Negative LEU/UL (Negative); Nitrate Urine Negative (Negative); Protein Urine Trace mg/dL (Negative); Specific Grav Ur >= 1.030 (1.001-1.035); pH Urine 5.5 (5.0-9.0)
[2022-12-14 07:10] LABS: Add Urine Microscopic? YES; Color Urine Dark Yellow (Yellow); Mucus Urine Few /lpf; RBC Urine 0-2 /hpf (0-2); WBC Urine 0-3 /hpf
[2022-12-14 07:11] LABS: Amphetamine Screen Urine Negative (Negative); Barbiturate Screen Urine Negative (Negative); Benzodiazepines Screen Urine Negative (Negative); Cannabinoid Screen Urine Positive (Negative); Cocaine Screen Urine Negative (Negative); Methadone Screen Urine Negative (Negative); Opiate Screen Urine Negative (Negative); Phencyclidine Screen Urine Negative (Negative)
--- NOTE | 2022-12-14 07:18 | ED.GENADULT ---
HPI - General Adult General Chief complaint: Altered Mental Status Stated complaint: abd pain Time Seen by Provider: 12/14/22 05:29 History of Present Illness HPI narrative: The patient 37-year-old male who presents emergency department with chief complaint of possible alcohol withdrawal. Patient has history of alcoholism no history of cirrhosis and reports that he has been sneaking alcohol into the nursing facility where he currently stays at. The patient states that his last drink was several days ago although there is conflicting reports as to when his last drink of alcohol was. Patient is clutching a Bible in the room and saying Aaron is out to get him Related Data Home Medications Medication Instructions Recorded Confirmed thiamine HCl (vitamin B1) 100 mg 100 mg PO DAILY 04/20/21 07/08/22 tablet tramadol 50 mg tablet 50 mg PO TID 08/28/21 07/08/22 melatonin 3 mg tablet 3 mg PO HS PRN Insomnia 09/15/21 07/08/22 ferrous sulfate 325 mg (65 mg 325 mg PO DAILY 11/12/21 07/08/22 iron) tablet rifaximin 550 mg tablet (Xifaxan) 550 mg PO BID 11/12/21 07/08/22 baclofen 10 mg tablet 15 mg PO TID 01/22/22 07/08/22 acetaminophen 500 mg tablet 1,000 mg PO BID 06/24/22 07/08/22 (Acetaminophen Extra Strength) calcium carbonate 500 mg calcium 500 mg PO TID 06/24/22 07/08/22 (1,250 mg) chewable tablet cholecalciferol (vitamin D3) 125 125 mcg PO DAILY 06/24/22 07/08/22 mcg (5,000 unit) tablet gabapentin 300 mg tablet 300 mg PO TID 06/24/22 07/08/22 potassium chloride 20 mEq 20 meq PO DAILY 06/24/22 07/08/22 tablet,extended release buspirone 5 mg tablet 10 mg PO TID 12/14/22 citalopram 20 mg tablet mg 12/14/22 diclofenac sodium 1 % topical gel 2 g topical QID 12/14/22 hydroxyzine HCl 25 mg tablet 25 mg PO TID 12/14/22 lactulose 10 gram/15 mL oral 30 ml PO TID 12/14/22 solution (Enulose) spironolactone 50 mg tablet 100 mg PO DAILY 12/14/22 (Aldactone) sucralfate 1 gram tablet 1 g PO QID 12/14/22 Allergies Allergy/AdvReac Type Severity Reaction Status Date / Time peanut Allergy Severe Anaphylaxis Verified 07/08/22 08:29 mushroom AdvReac Unknown Verified 07/08/22 08:29 Review of Systems Review of Systems: A 10 system review of systems was completed on the patient and is negative except for what is stated in the HPI. Nursing and ancillary documentation was reviewed. [facility] Past Medical History Medical History Alcohol abuse Alcoholic hepatitis Holt's esophagus with esophagitis Cirrhosis Depression with anxiety Esophageal varices Esophageal varices with bleeding Fracture of left hip Tobacco abuse Surgical History Surgical History History of esophagogastroduodenoscopy Family History Family History Mother Liver disease Cirrhosis Grandparent Heart failure Heart attack Social History Social History Social History: He has been living at a motel for last 6 weeks, prior to that he was at [place] for rehab after breaking his hip in November 2021. He smoked to half a pack a day for 18 years and at times he will still vape or chew nicotine gum. He has a longstanding history of alcohol abuse and reports drinking up to 6 pints of alcohol on the days that he binge drinks, which is apparently several times a week. No illicit substance use. He designates his father, Modesto Diaz, as his surrogate decision maker and he wishes to be a full code. Smoking status: Current every day smoker Tobacco type: cigarettes Additional smoking assessment comments: allowed 6 cigarettes/day at residential facility Alcohol intake: former Alcohol use details: hx alcohol abuse - currently in residential facility for PT/OT - not drinking there Substance use: unknow
[2022-12-14] MEDS: MAGNESIUM SULF 4 GM/WATER100ML 4 GM/100 ML BAG IVPB (07:46)
[2022-12-14 08:18] LABS: Influenza A QL RT-PCR Negative (Negative); Influenza B QL RT-PCR Negative (Negative); SARS-CoV-2 RNA PCR Negative
[2022-12-14] MEDS: THIAMINE HCL INJ 100 MG, FOLIC ACID INJ 1 MG, MULTIVITAMINS-12 INJ VIAL 1 5 ML, MULTIVI... 125 MG IV CONT (08:23)
[2022-12-14 08:37] LABS: Glucose Point of Care 85 mg/dl (65-105)
[2022-12-14 09:36] LABS: Reflex Lactic Acid Yes or No Add Lactic
--- NOTE | 2022-12-14 09:43 | ADMGEN ---
This patient, Lukas Diaz, was admitted to Medical Room 247-. Patient/family oriented to hospital policies and general routines including ID bracelet, bed and alarms, visiting hours, pain management, procedures, bathroom and other care routines, personal items, smoking policy, room service/diet, and visiting hours. Information on how to activate the Rapid Response Team has been discussed. Patient/Family are encouraged to report perceived risks to care and to ask questions if they do not understand what they are told or what they should do.
[2022-12-14 10:11] LABS: Lactic Acid 0.7 mmol/L (0.7-2.0)
--- NOTE | 2022-12-14 10:20 | PC.NURSE ---
Spoke with Reg[facility] at [facility]. Nurse was able to answer some questions for admission. Able to help confirm medication list as well.
[2022-12-14 12:16] LABS: Glucose Point of Care 79 mg/dl (65-105)
--- NOTE | 2022-12-14 12:30 | PM.IMHP ---
H&P: HPI History of Present Illness Date/Time: 12/14/22 12:30 Chief Complaint: Tremors, possible alcohol withdrawal. Narrative: This is an unfortunate 36-year-old with a longstanding history of alcohol abuse, alcoholic cirrhosis, esophageal varices, Holt esophagus, and alcohol withdrawal who presented to the emergency department via EMS from [facility] for evaluation of tremors and possible alcohol withdrawal. The patient is known to myself and the hospitalist service from previous encounters. Patient is able to provide some of the following history (currently alert and oriented x4) however he does not really remember what happened this morning and thus some of the following history is obtained from his EMR. Staff at the senior living report that he sneaks in alcohol though patient tells me he has not had anything to drink for 9 days. Today staff became concerned that he was going through withdrawal as he developed tremors this morning and he was apparently confused. Brain CT on arrival was unremarkable. Labs were significant for elevated LFTs (stable), hypomagnesemia, and mild elevation in his ammonia level. He was given high-dose thiamine and a banana bag in the ED as well as lorazepam 1 mg IV push for symptoms of withdrawal with improvement in his symptoms. He is being admitted in this setting for further treatment. At the time my evaluation his only complaint is that of extreme thirst as he has not been able to eat or drink since arrival to the hospital earlier this morning. He has noticed tremors which he states developed sometime overnight. He occasionally has visual and auditory hallucination which are not necessarily related to alcohol withdrawal, and he has not noticed anything significant today. He denies suicidal and homicidal ideations. He has not noticed any sweats. Endorses chronic loose stools secondary to lactulose, of which he states compliance. He denies fever, chills, and sweats. No headache or neck ache. No sinus congestion, sore throat, cough, nausea, or vomiting. Review of Systems Review of Systems: Twelve systems were reviewed and are negative except for as per HPI. [facility] Past Medical History Medical History (Updated 12/14/22 @ 17:06 by Valerie Paz PA-C) Alcohol abuse Alcoholic hepatitis Holt's esophagus with esophagitis Chronic anemia Cirrhosis Depression with anxiety Esophageal varices Fracture of left hip GI bleed Secondary to bleeding varices. Tobacco abuse Surgical History Surgical History (Updated 12/14/22 @ 12:36 by Valerie Paz PA-C) History of colonoscopy with polypectomy (05/25/22) Benign colon polyp, internal hemorrhoids. History of esophagogastroduodenoscopy (05/22/22) Nonbleeding esophageal varices, Holt esophagus without dysplasia, gastritis. Family History Family History Mother Liver disease Cirrhosis Grandparent Heart failure Heart attack Social History Social History (Updated 12/14/22 @ 17:06 by Valerie Paz PA-C) Social History: Surrogate medical decision maker: Modesto Diaz, father. Code status: Full code. Smoking status: Current every day smoker Tobacco type: cigarettes Additional smoking assessment comments: Now smoking about 5 cigarettes a day while at a correction facility. T Alcohol intake: current Alcohol use details: Longstanding history of alcohol abuse. Substance use: never Living arrangements: senior living Additional living arrangements comments: Currently at [facility] for rehab. Spiritual care concerns: No Meds Home Medications and Allergies Home Medications Medication Instructions Recorded Confirmed Type folic acid 1 mg tablet 1 mg PO DAILY #30 tabs 04/11/21 12/14/22 Rx thiamine HCl (vitamin B1) 100 mg 100 mg PO DAILY 04/20/21 12/14/22 History tablet propranolol 10 mg tablet 10 mg PO Q12HR #60
[2022-12-14 13:19] LABS: Anion Gap 6 mmol/L (8-16); Blood Urea Nitrogen 9 mg/dL (9-20); Calcium 7.9 mg/dL (8.4-10.2); Carbon Dioxide 24 mmol/L (22-30); Chloride 103 mmol/L (98-107); Estimated CRCL calculation 230 ml/min; Estimated Glomerular Filt Rate > 60; Glucose 72 mg/dL (65-110); Magnesium 2.4 mg/dL (1.6-2.3); Potassium 3.6 mmol/L (3.4-5.0); Sodium 133 mmol/L (137-145)
[2022-12-14] MEDS: CITALOPRAM HYDROBROMIDE 20 MG TABLET PO (13:27)
[2022-12-14] MEDS: SUCRALFATE 1 GM TABLET PO ×3 (13:27→23:02)
[2022-12-14] MEDS: CALCIUM CARBONATE (TUMS) 500 MG (200 MG ELEMENTAL) PO ×2 (13:28→17:01)
[2022-12-14] MEDS: busPIRone HCL 5 MG TABLET 10 MG PO ×2 (13:28→17:00)
[2022-12-14] MEDS: SPIRONOLACTONE 50 MG TABLET 100 MG PO (13:28)
[2022-12-14 16:54] LABS: Glucose Point of Care 71 mg/dl (65-105)
[2022-12-14] MEDS: rifAXIMin 550 MG TABLET PO (17:00)
[2022-12-14] MEDS: GABAPENTIN 300 MG CAPSULE PO (17:00)
[2022-12-14] MEDS: LACTULOSE 20 GM/30 ML UDC PO (17:00)
[2022-12-14] MEDS: FUROSEMIDE 40 MG TABLET PO (17:01)
[2022-12-14] MEDS: chlordiazePOXIDE (*CRX) 10 MG CAPSULE PO (17:19)
[2022-12-14] MEDS: PROPRANOLOL HCL 10 MG TABLET PO (21:23)
[2022-12-14] MEDS: MELATONIN 3 MG TABLET PO (21:23)
[2022-12-14] MEDS: PANTOPRAZOLE 40 MG TABLET PO (21:23)
[2022-12-15] VITALS (15 sets, daily range): BP systolic 115–142; BP diastolic 69–76; PULSE 80–98; RESP 16–20; TEMP 36.2–36.7; O2SAT 97–98
[2022-12-15] MEDS: chlordiazePOXIDE (*CRX) 10 MG CAPSULE PO (00:41)
[2022-12-15] MEDS: LORazepam INJ (*CRX) 2 MG/ML VIAL IV PUSH ×3 (00:42→20:06)
--- NOTE | 2022-12-15 00:53 | PC.NURSE ---
Addendum entered by Nichole Biggs RN 12/15/22 01:43: Called Dr. Garrido at 0121 and 0138 w/o response. I was called back at 0142, and notified her that CIWA reassessment score was 9. No further intervention was ordered. Original Note: Called Dr. Garrido to notify her of pt's CIWA score being 14 for 0000 assessment. Ativan was administered according to protocol.
[2022-12-15 01:28] LABS: Glucose Point of Care 82 mg/dl (65-105)
[2022-12-15 05:41] LABS: Hematocrit 40.8 % (42.0-52.0); Hemoglobin 13.6 g/dL (14.0-18.0); Immature Platelet Fraction Pct 5.3 % (0.9-11.2); Mean Corpuscular HGB Conc 33.3 g/dl (32-36); Mean Corpuscular Hemoglobin 36.8 pg (26-34); Mean Corpuscular Volume 110.3 fl (80-100); Mean Platelet Volume 10.1 fl (7.4-10.4); Platelet Count Result 102 k/mm3 (150-375); Red Cell Distribution Width 14.1 % (11.5-14.5); White Blood Count 4.5 K/mm3 (4.5-10.0)
[2022-12-15 05:58] LABS: Alanine Aminotransferase 70 U/L (6-50); Albumin Level 3.5 g/dL (3.5-5.1); Alkaline Phosphatase 134 U/L (38-126); Anion Gap 4 mmol/L (8-16); Aspartate Amino Transferase 85 U/L (17-59); Bilirubin,Total 1.5 mg/dL (0.2-1.3); Blood Urea Nitrogen 6 mg/dL (9-20); Calcium 7.9 mg/dL (8.4-10.2); Carbon Dioxide 29 mmol/L (22-30); Chloride 102 mmol/L (98-107); Estimated CRCL calculation 188 ml/min; Estimated Glomerular Filt Rate > 60; Glucose 73 mg/dL (65-110); Magnesium 1.9 mg/dL (1.6-2.3); Potassium 3.5 mmol/L (3.4-5.0); Sodium 135 mmol/L (137-145)
[2022-12-15] MEDS: chlordiazePOXIDE (*CRX) 25 MG CAPSULE PO ×3 (06:36→17:17)
[2022-12-15 06:45] LABS: Ammonia 21 umol/L (9-30)
[2022-12-15 06:49] LABS: Glucose Point of Care 74 mg/dl (65-105)
[2022-12-15] MEDS: CALCIUM CARBONATE (TUMS) 500 MG (200 MG ELEMENTAL) PO ×3 (09:27→17:11)
[2022-12-15] MEDS: LACTULOSE 20 GM/30 ML UDC PO ×3 (09:29→17:09)
[2022-12-15] MEDS: POTASSIUM CHLORIDE 20 MEQ TABLET.ER PO (09:29)
[2022-12-15] MEDS: FUROSEMIDE 40 MG TABLET PO ×2 (09:29→17:11)
[2022-12-15] MEDS: PANTOPRAZOLE 40 MG TABLET PO ×2 (09:29→20:08)
[2022-12-15] MEDS: GABAPENTIN 300 MG CAPSULE PO ×3 (09:29→17:10)
[2022-12-15] MEDS: SUCRALFATE 1 GM TABLET PO ×4 (09:29→20:09)
[2022-12-15] MEDS: rifAXIMin 550 MG TABLET PO ×2 (09:29→17:12)
[2022-12-15] MEDS: THIAMINE HCL 100 MG TABLET PO (09:29)
[2022-12-15] MEDS: FOLIC ACID 1 MG TABLET PO (09:30)
[2022-12-15] MEDS: PROPRANOLOL HCL 10 MG TABLET PO ×2 (09:30→20:08)
[2022-12-15] MEDS: busPIRone HCL 5 MG TABLET 10 MG PO ×3 (09:30→17:10)
[2022-12-15] MEDS: CITALOPRAM HYDROBROMIDE 20 MG TABLET PO (09:30)
[2022-12-15] MEDS: SPIRONOLACTONE 50 MG TABLET 100 MG PO (09:30)
[2022-12-15] MEDS: CHOLECALCIFEROL 1,000 UNITS TABLET 5000 UNITS PO (09:31)
[2022-12-15] MEDS: FERROUS SULFATE 324 MG TABLET PO (09:31)
[2022-12-15 11:40] LABS: Glucose Point of Care 96 mg/dl (65-105)
--- NOTE | 2022-12-15 14:37 | PM.IMPN ---
Progress Note: A&P Assessment and Plan (1) Altered mental status: Code(s): R41.82 - Altered mental status, unspecified Status: Acute Assessment and Plan: Resolved. patient is slightly drowsy but is alert and oriented x4. Suspected related to alcohol withdrawal syndrome. See below. symptoms improved with benzodiazepines. No evidence of underlying infection. Ammonia very slightly elevated, however not felt to be contributing. patient reported compliance with lactulose which is being continued. head CT with no acute findings. Continue with neurologic checks (2) Alcohol withdrawal syndrome: Code(s): F10.939 - Alcohol use, unspecified with withdrawal, unspecified Status: Acute Assessment and Plan: Patient is at a snf currently but reportedly sneaks in alcohol. admitted to EMS drinking 10 beers prior to presentation. Patient reports to me that last drink was 9 days ago. His symptoms are consistent with acute alcohol withdrawa and CIWA scores are elevated ranging from 7-14 today. continue scheduled Librium. Continue with CIWA protocol monitoring. Ativan as needed for CIWA scores >7. continue thiamine and folic acid supplementation (3) Hypomagnesemia: Code(s): E83.42 - Hypomagnesemia Status: Acute Assessment and Plan: magnesium was supplemented on admission. 1.9 today. Continue to monitor (4) Transaminitis: Code(s): R74.01 - Elevation of levels of liver transaminase levels Status: Acute Assessment and Plan: Secondary to chronic alcoholic liver disease. LFT stable when compared to previous labs. (5) Hyperammonemia: Code(s): E72.20 - Disorder of urea cycle metabolism, unspecified Status: Acute Assessment and Plan: Ammonia minimally elevated 31 (upper limit of normal is 30). do not feel that this is contributing to symptoms. Decline to 21 on repeat. Continue lactulose 20 g t.i.d.. (6) Alcohol abuse: Code(s): F10.10 - Alcohol abuse, uncomplicated Status: Chronic Assessment and Plan: See above (7) Cirrhosis: Code(s): K74.60 - Unspecified cirrhosis of liver Status: Chronic Assessment and Plan: Not acutely decompensated. Plan Will begin nasal saline for dry nasal passages Subjective Date/time seen: 12/15/22 14:37 Interval history: date of service: 12/15/2022 Lukas Morales is a 37-year-old male with a history of alcohol abuse, cirrhosis alcoholic hepatitis, esophageal varices, chronic anemia, Holt's esophagus, and tobacco abuse who is seen in follow-up for alcohol withdrawal symptoms. Patient tells me that his last alcoholic drink was 9 days ago. When asked what he believes is the source of his alcohol withdrawal symptoms, he is unsure. Patient states that he feels poorly. He has been feeling hot and cold often on. He feels shaky and anxious. He complains of diarrhea. He also complains of tooth pain due to a jagged and tooth that gets solid stuck and is painful to chew. He typically sticks to soft or liquid foods. He does have some dried blood in his nares and on his fingers, therefore asked him if he had a nose bleed today. He states that he has been having some dried clots of blood that he picks at when he gets anxious. Review of Systems Review of Systems: All systems reviewed & are unremarkable except as noted in HPI and below Exam Narrative: General: Well-nourished, chronically ill-appearing 37-year-old male, sitting up in bed, comfortable, NARD Neuro: drowsy, A&Ox4, speech clear, no focal neuro deficits noted, persistent tremor of bilateral upper extremities HEENMT: normocephalic, atraumatic, EOMI, sclerae anicteric, moist oral mucosa, dried blood in the left near Respiratory: clear to auscultation bilaterally, nonlabored breathing Cardio: regular rate, regular rhythm with S1-S2 Abdomen: nondistended, normoactive bowel
[2022-12-15] MEDS: SALINE 0.65% NAS SOLN 44 ML BTL 1 SPRAY NASAL ×2 (17:08→21:03)
[2022-12-15 17:37] LABS: Glucose Point of Care 140 mg/dl (65-105)
[2022-12-15] MEDS: MELATONIN 3 MG TABLET PO (21:02)
[2022-12-15] MEDS: traMADol HCL (*CRX) 50 MG TABLET PO (21:02)
[2022-12-15 21:18] LABS: Glucose Point of Care 109 mg/dl (65-105)
[2022-12-16] VITALS (12 sets, daily range): BP systolic 100–117; BP diastolic 75–85; PULSE 70–90; RESP 17–18; TEMP 35.5–36.6; O2SAT 97–98
[2022-12-16] MEDS: chlordiazePOXIDE (*CRX) 25 MG CAPSULE 50 MG PO ×5 (00:10→23:13)
[2022-12-16 00:14] LABS: Glucose Point of Care 99 mg/dl (65-105)
[2022-12-16] MEDS: traMADol HCL (*CRX) 50 MG TABLET PO ×3 (05:15→21:08)
[2022-12-16] MEDS: SALINE 0.65% NAS SOLN 44 ML BTL 1 SPRAY NASAL ×3 (05:16→21:08)
[2022-12-16 05:28] LABS: Glucose Point of Care 90 mg/dl (65-105)
[2022-12-16 05:52] LABS: Hemoglobin 13.6 g/dL (14.0-18.0); Immature Platelet Fraction Pct 5.1 % (0.9-11.2); Mean Corpuscular Hemoglobin 36.1 pg (26-34); Mean Corpuscular Volume 106.1 fl (80-100); Mean Platelet Volume 10.6 fl (7.4-10.4); Platelet Count Result 102 k/mm3 (150-375); Red Blood Count 3.77 M/mm3 (4.6-6.20); Red Cell Distribution Width 13.4 % (11.5-14.5); White Blood Count 4.8 K/mm3 (4.5-10.0)
[2022-12-16 05:58] LABS: Anion Gap 6 mmol/L (8-16); Blood Urea Nitrogen 5 mg/dL (9-20); Calcium 8.9 mg/dL (8.4-10.2); Carbon Dioxide 28 mmol/L (22-30); Chloride 104 mmol/L (98-107); Estimated CRCL calculation 189 ml/min; Estimated Glomerular Filt Rate > 60; Glucose 87 mg/dL (65-110); Magnesium 1.8 mg/dL (1.6-2.3); Potassium 3.3 mmol/L (3.4-5.0); Sodium 138 mmol/L (137-145)
[2022-12-16] MEDS: LACTULOSE 20 GM/30 ML UDC PO ×3 (09:07→16:55)
[2022-12-16] MEDS: CHOLECALCIFEROL 1,000 UNITS TABLET 5000 UNITS PO (09:08)
[2022-12-16] MEDS: CALCIUM CARBONATE (TUMS) 500 MG (200 MG ELEMENTAL) PO ×3 (09:09→16:55)
[2022-12-16] MEDS: POTASSIUM CHLORIDE 20 MEQ TABLET.ER PO (09:10)
[2022-12-16] MEDS: FOLIC ACID 1 MG TABLET PO (09:11)
[2022-12-16] MEDS: GABAPENTIN 300 MG CAPSULE PO ×3 (09:12→16:55)
[2022-12-16] MEDS: busPIRone HCL 5 MG TABLET 10 MG PO ×3 (09:13→16:55)
[2022-12-16] MEDS: SPIRONOLACTONE 50 MG TABLET 100 MG PO (09:13)
[2022-12-16] MEDS: FERROUS SULFATE 324 MG TABLET PO (09:13)
[2022-12-16] MEDS: FUROSEMIDE 40 MG TABLET PO ×2 (09:14→16:57)
[2022-12-16] MEDS: SUCRALFATE 1 GM TABLET PO ×4 (09:14→21:08)
[2022-12-16] MEDS: rifAXIMin 550 MG TABLET PO ×2 (09:14→16:56)
[2022-12-16] MEDS: PANTOPRAZOLE 40 MG TABLET PO ×2 (09:14→21:07)
[2022-12-16] MEDS: THIAMINE HCL 100 MG TABLET PO (09:15)
[2022-12-16] MEDS: PROPRANOLOL HCL 10 MG TABLET PO ×2 (09:15→21:07)
[2022-12-16] MEDS: CITALOPRAM HYDROBROMIDE 20 MG TABLET PO (09:15)
[2022-12-16] MEDS: LORazepam INJ (*CRX) 2 MG/ML VIAL 1 MG IV PUSH ×2 (12:20→21:13)
--- NOTE | 2022-12-16 13:25 | P.PNIM_ITS ---
Progress Note: A&P Assessment and Plan (1) Encephalopathy acute: Code(s): G93.40 - Encephalopathy, unspecified Status: Resolved Assessment and Plan: Patient presented to the emergency department and from the prison and was reportedly with altered mental status. * May be secondary to alcohol withdrawal delirium versus hepatic encephalopathy with mildly elevated ammonia on admission. * No evidence of underlying infection. * CT head without acute findings. * Continue management of acute alcohol withdrawal and lactulose/ rifaximin for elevated ammonia (2) Alcohol withdrawal syndrome: Qualifiers: Complication of substance-induced condition: with delirium Qualified Code(s): F10.931 - Alcohol use, unspecified with withdrawal delirium Code(s): F10.939 - Alcohol use, unspecified with withdrawal, unspecified Status: Acute Assessment and Plan: Patient is at a prison currently and reportedly sneaks in alcohol. * He admitted to EMS drinking 10 beers prior to presentation. * He reported on admission that last drink was 9 days prior to admission and does endorse he has not had a drink in somebody days to me today. He states that prior to this he was drinking Listerine and vodka in unknown quantities. When asked where he received the vodka he states that he ordered it online. * His symptoms are consistent with acute alcohol withdrawal * CIWA scores are elevated ranging from 2-9 today following increase in Librium to 50 mg q.6 hours overnight. * continue scheduled Librium. * Continue with CIWA protocol monitoring. * Ativan 1 mg IV q.4 hours for CIWA >8 and 2 mg IV q.4 hours for CIWA greater than 15. * continue thiamine and folic acid supplementation p.o. * Will add multivitamin (3) Hypomagnesemia: Code(s): E83.42 - Hypomagnesemia Status: Acute Assessment and Plan: Magnesium low 1.5 on 12/14 and repleted with IV supplementation. * Repeat magnesium stable at 1.8 today * Secondary to a chronic alcohol use (4) Transaminitis: Code(s): R74.01 - Elevation of levels of liver transaminase levels Status: Chronic Assessment and Plan: Secondary to chronic alcoholic liver disease. LFT stable when compared to previous labs. * Continue to monitor (5) Hyperammonemia: Code(s): E72.20 - Disorder of urea cycle metabolism, unspecified Status: Acute Assessment and Plan: Ammonia minimally elevated 31 upon admission. Unclear if this is contributing to altered mental status on admission but may have been contributing * continue lactulose 20 g t.i.d. and rifaximin 550 mg p.o. b.i.d. (6) Alcohol abuse: Code(s): F10.10 - Alcohol abuse, uncomplicated Status: Chronic Assessment and Plan: Counseled to quit on the patient states he is currently trying. (7) Cirrhosis: Qualifiers: Ascites presence: with ascites Hepatic cirrhosis type: alcoholic cirrhosis Qualified Code(s): K70.31 - Alcoholic cirrhosis of liver with ascites Code(s): K74.60 - Unspecified cirrhosis of liver Status: Chronic Assessment and Plan: Not acutely decompensated. * Continue spironolactone 100 mg daily, and furosemide 40 mg b.i.d. * Continue propranolol 10 mg p.o. b.i.d. but monitor for acute hepatic encephalopathy (8) Holt's esophagus with esophagitis: Code(s): K22.70 - Holt's esophagus without dysplasia; K20.90 - Esophagitis, unspecified without bleeding Status: Chronic Assessment and
--- NOTE | 2022-12-16 13:25 | PM.IMPN ---
Progress Note: A&P Assessment and Plan (1) Encephalopathy acute: Code(s): G93.40 - Encephalopathy, unspecified Status: Resolved Assessment and Plan: Patient presented to the emergency department and from the custodial and was reportedly with altered mental status. May be secondary to alcohol withdrawal delirium versus hepatic encephalopathy with mildly elevated ammonia on admission. No evidence of underlying infection. CT head without acute findings. Continue management of acute alcohol withdrawal and lactulose/ rifaximin for elevated ammonia (2) Alcohol withdrawal syndrome: Qualifiers: Complication of substance-induced condition: with delirium Qualified Code(s): F10.931 - Alcohol use, unspecified with withdrawal delirium Code(s): F10.939 - Alcohol use, unspecified with withdrawal, unspecified Status: Acute Assessment and Plan: Patient is at a custodial currently and reportedly sneaks in alcohol. He admitted to EMS drinking 10 beers prior to presentation. He reported on admission that last drink was 9 days prior to admission and does endorse he has not had a drink in somebody days to me today. He states that prior to this he was drinking Listerine and vodka in unknown quantities. When asked where he received the vodka he states that he ordered it online. His symptoms are consistent with acute alcohol withdrawal CIWA scores are elevated ranging from 2-9 today following increase in Librium to 50 mg q.6 hours overnight. continue scheduled Librium. Continue with CIWA protocol monitoring. Ativan 1 mg IV q.4 hours for CIWA >8 and 2 mg IV q.4 hours for CIWA greater than 15. continue thiamine and folic acid supplementation p.o. Will add multivitamin (3) Hypomagnesemia: Code(s): E83.42 - Hypomagnesemia Status: Acute Assessment and Plan: Magnesium low 1.5 on 12/14 and repleted with IV supplementation. Repeat magnesium stable at 1.8 today Secondary to a chronic alcohol use (4) Transaminitis: Code(s): R74.01 - Elevation of levels of liver transaminase levels Status: Chronic Assessment and Plan: Secondary to chronic alcoholic liver disease. LFT stable when compared to previous labs. Continue to monitor (5) Hyperammonemia: Code(s): E72.20 - Disorder of urea cycle metabolism, unspecified Status: Acute Assessment and Plan: Ammonia minimally elevated 31 upon admission. Unclear if this is contributing to altered mental status on admission but may have been contributing continue lactulose 20 g t.i.d. and rifaximin 550 mg p.o. b.i.d. (6) Alcohol abuse: Code(s): F10.10 - Alcohol abuse, uncomplicated Status: Chronic Assessment and Plan: Counseled to quit on the patient states he is currently trying. (7) Cirrhosis: Qualifiers: Ascites presence: with ascites Hepatic cirrhosis type: alcoholic cirrhosis Qualified Code(s): K70.31 - Alcoholic cirrhosis of liver with ascites Code(s): K74.60 - Unspecified cirrhosis of liver Status: Chronic Assessment and Plan: Not acutely decompensated. Continue spironolactone 100 mg daily, and furosemide 40 mg b.i.d. Continue propranolol 10 mg p.o. b.i.d. but monitor for acute hepatic encephalopathy (8) Holt's esophagus with esophagitis: Code(s): K22.70 - Holt's esophagus without dysplasia; K20.90 - Esophagitis, unspecified without bleeding Status: Chronic Assessment and Plan: History of Barretts esophagus with esophagitis. Continue Protonix 40 mg b.i.d., Carafate q.i.d. and Tums Plan Code status: Full code Disposition patient is from [facility]. Possible discharge in 1-2 days pending improving CIWA scores without IV benzodiazepines. Time Spent With Patient Time: 30 minutes time spent reviewing nursing and specialist documentation, labs, vi
[2022-12-16] MEDS: MELATONIN 3 MG TABLET PO (21:13)
[2022-12-17] VITALS (13 sets, daily range): BP systolic 97–122; BP diastolic 70–85; PULSE 70–95; RESP 16–18; TEMP 36.4–36.8; O2SAT 95–100
[2022-12-17] MEDS: traMADol HCL (*CRX) 50 MG TABLET PO ×3 (05:22→21:02)
[2022-12-17] MEDS: SALINE 0.65% NAS SOLN 44 ML BTL 1 SPRAY NASAL ×3 (05:22→21:03)
[2022-12-17] MEDS: chlordiazePOXIDE (*CRX) 25 MG CAPSULE 50 MG PO ×2 (05:22→12:53)
[2022-12-17 06:16] LABS: Alanine Aminotransferase 68 U/L (6-50); Albumin Level 3.5 g/dL (3.5-5.1); Alkaline Phosphatase 134 U/L (38-126); Anion Gap 4 mmol/L (8-16); Aspartate Amino Transferase 73 U/L (17-59); Bilirubin,Total 0.9 mg/dL (0.2-1.3); Blood Urea Nitrogen 7 mg/dL (9-20); Calcium 8.9 mg/dL (8.4-10.2); Carbon Dioxide 27 mmol/L (22-30); Chloride 100 mmol/L (98-107); Estimated CRCL calculation 160 ml/min; Estimated Glomerular Filt Rate > 60; Glucose 87 mg/dL (65-110); Potassium 3.3 mmol/L (3.4-5.0); Sodium 131 mmol/L (137-145)
[2022-12-17] MEDS: SUCRALFATE 1 GM TABLET PO ×4 (08:59→21:02)
[2022-12-17] MEDS: FERROUS SULFATE 324 MG TABLET PO (08:59)
[2022-12-17] MEDS: MULTIVITAMINS THERAPEUTIC TAB (*BKC) 1 TABLET PO (08:59)
[2022-12-17] MEDS: CITALOPRAM HYDROBROMIDE 20 MG TABLET PO (08:59)
[2022-12-17] MEDS: FOLIC ACID 1 MG TABLET PO (08:59)
[2022-12-17] MEDS: CHOLECALCIFEROL 1,000 UNITS TABLET 5000 UNITS PO (08:59)
[2022-12-17] MEDS: POTASSIUM CHLORIDE 20 MEQ TABLET.ER PO ×2 (08:59→17:30)
[2022-12-17] MEDS: THIAMINE HCL 100 MG TABLET PO (09:00)
[2022-12-17] MEDS: PANTOPRAZOLE 40 MG TABLET PO ×2 (09:00→21:02)
[2022-12-17] MEDS: SPIRONOLACTONE 50 MG TABLET 100 MG PO (09:00)
[2022-12-17] MEDS: PROPRANOLOL HCL 10 MG TABLET PO ×2 (09:00→21:03)
[2022-12-17] MEDS: busPIRone HCL 5 MG TABLET 10 MG PO ×3 (09:00→17:28)
[2022-12-17] MEDS: FUROSEMIDE 40 MG TABLET PO ×2 (09:01→17:28)
[2022-12-17] MEDS: LACTULOSE 20 GM/30 ML UDC PO ×3 (09:01→17:28)
[2022-12-17] MEDS: rifAXIMin 550 MG TABLET PO ×2 (09:01→17:28)
[2022-12-17] MEDS: GABAPENTIN 300 MG CAPSULE PO ×3 (09:01→17:28)
[2022-12-17] MEDS: LORazepam INJ (*CRX) 2 MG/ML VIAL 1 MG IV PUSH (09:24)
[2022-12-17] MEDS: CALCIUM CARBONATE (TUMS) 500 MG (200 MG ELEMENTAL) PO ×3 (09:59→17:28)
--- NOTE | 2022-12-17 12:54 | PC.NURSE ---
Patient pushed call light to notify staff that he was on the floor, Plate Keeper entered room and observed pt on bilateral knees holding on to side of bed. Pt states i fell asleep and woke up when i was falling the floor. No visible injuries observed. Patient denies hitting his head. Pt state he landed on his hip that was already broken, no obvious visible deformities observed . Pt was able to be assisted into standing position via two staff members and assisted to bed. Bed railed placed up and bed alarm reset. Yany Sosa made aware and x-ray ordered.
--- NOTE | 2022-12-17 13:18 | PC.NURSE ---
On 12/17/22, the student, [Theodore Mcqueen], provided care and completed [facility] documentation on this patient. I have reviewed the student's documentation and agree with the findings.
--- NOTE | 2022-12-17 14:27 | P.PNIM_ITS ---
Progress Note: A&P Assessment and Plan (1) Encephalopathy acute: Code(s): G93.40 - Encephalopathy, unspecified Status: Resolved Assessment and Plan: Patient presented to the emergency department and from the longterm and was reportedly with altered mental status. * May be secondary to alcohol withdrawal delirium versus hepatic encephalopathy with mildly elevated ammonia on admission. * No evidence of underlying infection. * CT head without acute findings. * Continue management of acute alcohol withdrawal and lactulose/ rifaximin for elevated ammonia (2) Alcohol withdrawal syndrome: Qualifiers: Complication of substance-induced condition: with delirium Qualified Code(s): F10.931 - Alcohol use, unspecified with withdrawal delirium Code(s): F10.939 - Alcohol use, unspecified with withdrawal, unspecified Status: Acute Assessment and Plan: Patient is at a longterm currently and reportedly sneaks in alcohol. * He admitted to EMS drinking 10 beers prior to presentation. * He reported on admission that last drink was 9 days prior to admission and does endorse he has not had a drink in somebody days to me today. He states that prior to this he was drinking Listerine and vodka in unknown quantities. When asked where he received the vodka he states that he ordered it online. * His symptoms are consistent with acute alcohol withdrawal * CIWA scores are elevated ranging from 4-5 today * continue scheduled Librium. Wean Librium. * Continue with CIWA protocol monitoring. * Ativan 0.5 mg IV q.4 hours for CIWA >8 and 1 mg IV q.4 hours for CIWA greater than 15. * continue thiamine and folic acid supplementation p.o. * Patient's tremors noted to worsen when people/staff in the room suggesting some psychological component. (3) Hypomagnesemia: Code(s): E83.42 - Hypomagnesemia Status: Acute Assessment and Plan: Magnesium low 1.5 on 12/14 and repleted with IV supplementation. * Repeat magnesium stable at 1.8 * Secondary to a chronic alcohol use (4) Transaminitis: Code(s): R74.01 - Elevation of levels of liver transaminase levels Status: Chronic Assessment and Plan: Secondary to chronic alcoholic liver disease. LFT stable when compared to previous labs. * Continue to monitor (5) Hyperammonemia: Code(s): E72.20 - Disorder of urea cycle metabolism, unspecified Status: Acute Assessment and Plan: Ammonia minimally elevated 31 upon admission. Unclear if this is contributing to altered mental status on admission but may have been contributing * continue lactulose 20 g t.i.d. and rifaximin 550 mg p.o. b.i.d. (6) Alcohol abuse: Code(s): F10.10 - Alcohol abuse, uncomplicated Status: Chronic Assessment and Plan: Counseled to quit on the patient states he is currently trying. (7) Cirrhosis: Qualifiers: Hepatic cirrhosis type: alcoholic cirrhosis Ascites presence: with asci noman Qualified Code(s): K70.31 - Alcoholic cirrhosis of liver with ascites Code(s): K74.60 - Unspecified cirrhosis of liver Status: Chronic Assessment and Plan: Not acutely decompensated. * Continue spironolactone 100 mg daily, and furosemide 40 mg b.i.d. * Continue propranolol 10 mg p.o. b.i.d. but monitor for acute hepatic encephalopathy (8) Holt's esophagus with esophagitis: Code(s): K22.70 - Holt's esophagus without dysplasia; K20.90 - Esophagitis, unspecified without bleeding Sta
--- NOTE | 2022-12-17 14:27 | PM.IMPN ---
Progress Note: A&P Assessment and Plan (1) Encephalopathy acute: Code(s): G93.40 - Encephalopathy, unspecified Status: Resolved Assessment and Plan: Patient presented to the emergency department and from the assisted and was reportedly with altered mental status. May be secondary to alcohol withdrawal delirium versus hepatic encephalopathy with mildly elevated ammonia on admission. No evidence of underlying infection. CT head without acute findings. Continue management of acute alcohol withdrawal and lactulose/ rifaximin for elevated ammonia (2) Alcohol withdrawal syndrome: Qualifiers: Complication of substance-induced condition: with delirium Qualified Code(s): F10.931 - Alcohol use, unspecified with withdrawal delirium Code(s): F10.939 - Alcohol use, unspecified with withdrawal, unspecified Status: Acute Assessment and Plan: Patient is at a assisted currently and reportedly sneaks in alcohol. He admitted to EMS drinking 10 beers prior to presentation. He reported on admission that last drink was 9 days prior to admission and does endorse he has not had a drink in somebody days to me today. He states that prior to this he was drinking Listerine and vodka in unknown quantities. When asked where he received the vodka he states that he ordered it online. His symptoms are consistent with acute alcohol withdrawal CIWA scores are elevated ranging from 4-5 today continue scheduled Librium. Wean Librium. Continue with CIWA protocol monitoring. Ativan 0.5 mg IV q.4 hours for CIWA >8 and 1 mg IV q.4 hours for CIWA greater than 15. continue thiamine and folic acid supplementation p.o. Patient's tremors noted to worsen when people/staff in the room suggesting some psychological component. (3) Hypomagnesemia: Code(s): E83.42 - Hypomagnesemia Status: Acute Assessment and Plan: Magnesium low 1.5 on 12/14 and repleted with IV supplementation. Repeat magnesium stable at 1.8 Secondary to a chronic alcohol use (4) Transaminitis: Code(s): R74.01 - Elevation of levels of liver transaminase levels Status: Chronic Assessment and Plan: Secondary to chronic alcoholic liver disease. LFT stable when compared to previous labs. Continue to monitor (5) Hyperammonemia: Code(s): E72.20 - Disorder of urea cycle metabolism, unspecified Status: Acute Assessment and Plan: Ammonia minimally elevated 31 upon admission. Unclear if this is contributing to altered mental status on admission but may have been contributing continue lactulose 20 g t.i.d. and rifaximin 550 mg p.o. b.i.d. (6) Alcohol abuse: Code(s): F10.10 - Alcohol abuse, uncomplicated Status: Chronic Assessment and Plan: Counseled to quit on the patient states he is currently trying. (7) Cirrhosis: Qualifiers: Hepatic cirrhosis type: alcoholic cirrhosis Ascites presence: with ascites Qualified Code(s): K70.31 - Alcoholic cirrhosis of liver with ascites Code(s): K74.60 - Unspecified cirrhosis of liver Status: Chronic Assessment and Plan: Not acutely decompensated. Continue spironolactone 100 mg daily, and furosemide 40 mg b.i.d. Continue propranolol 10 mg p.o. b.i.d. but monitor for acute hepatic encephalopathy (8) Holt's esophagus with esophagitis: Code(s): K22.70 - Holt's esophagus without dysplasia; K20.90 - Esophagitis, unspecified without bleeding Status: Chronic Assessment and Plan: History of Barretts esophagus with esophagitis. Continue Protonix 40 mg b.i.d., Carafate q.i.d. and Tums (9) Fracture of left hip: Code(s): S72.002A - Fracture of unspecified part of neck of left femur, initial encounter for closed fracture Status: Chronic Assessment and Plan: Patient reports prior left hip fracture and chronic left hip pain. He s
--- NOTE | 2022-12-17 16:19 | PC.NURSE ---
At approximately 1245 I was notified by clinical instructor of patient sitting on edge of bed to eat lunch with no alarm present and that he appeared to be messing with/touch his bed alarm at the end of his bed. Bed alarm was reset and pt was educated about not touching the bed alarm. After leaving the room the bed alarm went off and I noticed pt appeared to be touching the bed alarm again. Pt was educated about need for alarm and to again not touch alarm. Minutes later pt called nursing station reporting he fell onto his L hip and that he did not hit his head. Pts vitals were stable and no injury was visualized.
[2022-12-17] MEDS: chlordiazePOXIDE (*CRX) 25 MG CAPSULE PO (17:29)
[2022-12-18] VITALS (8 sets, daily range): BP systolic 104–122; BP diastolic 64–79; PULSE 72–85; RESP 16–18; TEMP 36.6–36.9; O2SAT 96–100
[2022-12-18] MEDS: chlordiazePOXIDE (*CRX) 25 MG CAPSULE PO ×4 (00:12→21:26)
[2022-12-18] MEDS: traMADol HCL (*CRX) 50 MG TABLET PO ×3 (05:31→21:26)
[2022-12-18] MEDS: SALINE 0.65% NAS SOLN 44 ML BTL 1 SPRAY NASAL ×3 (05:32→21:32)
[2022-12-18] MEDS: CALCIUM CARBONATE (TUMS) 500 MG (200 MG ELEMENTAL) PO ×3 (08:33→17:51)
[2022-12-18] MEDS: busPIRone HCL 5 MG TABLET 10 MG PO ×3 (08:33→17:50)
[2022-12-18] MEDS: POTASSIUM CHLORIDE 20 MEQ TABLET.ER PO ×2 (08:33→17:50)
[2022-12-18] MEDS: SPIRONOLACTONE 50 MG TABLET 100 MG PO (08:35)
[2022-12-18] MEDS: CITALOPRAM HYDROBROMIDE 20 MG TABLET PO (08:35)
[2022-12-18] MEDS: CHOLECALCIFEROL 1,000 UNITS TABLET 5000 UNITS PO (08:35)
[2022-12-18] MEDS: FOLIC ACID 1 MG TABLET PO (08:36)
[2022-12-18] MEDS: FUROSEMIDE 40 MG TABLET PO ×2 (08:36→17:50)
[2022-12-18] MEDS: PANTOPRAZOLE 40 MG TABLET PO ×2 (08:41→21:26)
[2022-12-18] MEDS: LACTULOSE 20 GM/30 ML UDC PO ×2 (08:41→13:03)
[2022-12-18] MEDS: FERROUS SULFATE 324 MG TABLET PO (08:41)
[2022-12-18] MEDS: GABAPENTIN 300 MG CAPSULE PO ×3 (08:41→17:50)
[2022-12-18] MEDS: MULTIVITAMINS THERAPEUTIC TAB (*BKC) 1 TABLET PO (08:42)
[2022-12-18] MEDS: THIAMINE HCL 100 MG TABLET PO (08:42)
[2022-12-18] MEDS: SUCRALFATE 1 GM TABLET PO ×4 (08:43→21:26)
[2022-12-18] MEDS: rifAXIMin 550 MG TABLET PO ×2 (08:43→17:50)
[2022-12-18] MEDS: PROPRANOLOL HCL 10 MG TABLET PO ×2 (09:55→21:25)
[2022-12-18] MEDS: LORazepam INJ (*CRX) 2 MG/ML VIAL 0.5 MG IV PUSH ×2 (09:55→21:27)
--- NOTE | 2022-12-18 12:29 | PM.CNOR ---
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 He has longstanding history of severe all call is a multiple hospitalizations for bleeding complications and cirrhosis. History of esophageal varices banding procedure, elevated liver enzymes. His INR is elevated at 1.5 due to cirrhosis. I am asked to see him for chronic subcapital displaced left femoral neck fracture. He was originally evaluated 1 year ago in November of 2021 when he sustained a hip fracture and he came to the [facility] Emergency Room. He was transferred to [facility] and evaluated and Dr. Cabrera offered him a total hip replacement that time. He refused because he thought that pinning would suffice. I did advise him that although pinning could be performed with his pattern of fracture his alcoholism the severe displacement, it would fail and he would need a revision to a total hip replacement and a primary total hip replacement would have been the best option in my opinion as well. He complains that he saw Dr. Cabrera [address] Cabrera would not to his hip replacement until he had his teeth addressed. He states that he has nothing wrong with his teeth except for some jagged edges. He did see a dentist who recommended pulling several teeth and clinically has yoo gums around several teeth back of his mouth and significant periodontal disease and I have discussed with him that it is critical that he have his teeth that are infected removed before considering hip replacement as if it is done afterwards it could lead to infection of hip replacement and I discussed the disastrous consequences of that. He was hoping that another orthopedic surgeon might have a different view of this. Patient has been living in the prison for almost 1 year. He is there because in part of his hip fracture problem difficulty ambulating and also because of his cirrhosis and the numerous medications that he takes which she is unable to reliably keep track of. Apparently someone was bringing him all call into the prison at a rate that he underwent withdrawal when he stops drinking 9 days ago. His x-rays demonstrate prominent shortening of the garden 4 displaced subcapital femoral neck fracture left hip. No bony destructive lesion noted. 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 The treatment for this would be left total hip arthroplasty which in the right setting would improve his functional outcome alleviate pain associated with the nonunion of the fracture and be a very appropriate procedure to offer him. However, he is at extremely high risk for complications. The risk of infection in this gentleman if he continues to drink is prohibitively high. I would recommend that he stop drinking for 6 months allow his liver to regenerate a little bit before having surgery. I would also recommend that he see the oral surgeon and have his teeth removed now. He states that several appointments have been postponed. He should stick with that plan and have his teeth addressed as that is critically important. Finally, he is at risk for having severe hepatic failure due to the agents used with anesthesia and the stress of surgery. It sounds like he has an element of 4 neck he has encephalopathy he cannot remember to take his medications and hopefully this would improve with abstinence from alcohol for the next 6 months. Since he will be at high risk for hepatic failure, it would be best to have his surgery at [facility] with a total hip replacement specialist and under the postoperative care of his health club attendant there. His
--- NOTE | 2022-12-18 16:10 | P.PNIM_ITS ---
Progress Note: A&P Assessment and Plan (1) Encephalopathy acute: Code(s): G93.40 - Encephalopathy, unspecified Status: Resolved Assessment and Plan: Patient presented to the emergency department and from the halfway and was reportedly with altered mental status. * May be secondary to alcohol withdrawal delirium versus hepatic encephalopathy with mildly elevated ammonia on admission. * No evidence of underlying infection. * CT head without acute findings. * Continue management of acute alcohol withdrawal and lactulose/ rifaximin for elevated ammonia * At baseline (2) Alcohol withdrawal syndrome: Qualifiers: Complication of substance-induced condition: with delirium Qualified Code(s): F10.931 - Alcohol use, unspecified with withdrawal delirium Code(s): F10.939 - Alcohol use, unspecified with withdrawal, unspecified Status: Acute Assessment and Plan: Patient is at a halfway currently and reportedly sneaks in alcohol. * He admitted to EMS drinking 10 beers prior to presentation. * He reported on admission that last drink was 9 days prior to admission and does endorse he has not had a drink in somebody days to me today. He states that prior to this he was drinking Listerine and vodka in unknown quantities. When asked where he received the vodka he states that he ordered it online. * His symptoms are consistent with acute alcohol withdrawal * CIWA scores are elevated ranging from 4-5 today * continue scheduled Librium. Wean Librium. * continue thiamine and folic acid supplementation p.o. * Patient's tremors noted to worsen when people/staff in the room suggesting some psychological component. (3) Hypomagnesemia: Code(s): E83.42 - Hypomagnesemia Status: Acute Assessment and Plan: Magnesium low 1.5 on 12/14 and repleted with IV supplementation. * Repeat magnesium stable at 1.8 * Secondary to a chronic alcohol use (4) Transaminitis: Code(s): R74.01 - Elevation of levels of liver transaminase levels Status: Chronic Assessment and Plan: Secondary to chronic alcoholic liver disease. LFT stable when compared to previous labs. * Continue to monitor (5) Hyperammonemia: Code(s): E72.20 - Disorder of urea cycle metabolism, unspecified Status: Acute Assessment and Plan: Ammonia minimally elevated 31 upon admission. Unclear if this is contributing to altered mental status on admission but may have been contributing * continue lactulose 20 g t.i.d. and rifaximin 550 mg p.o. b.i.d. (6) Alcohol abuse: Code(s): F10.10 - Alcohol abuse, uncomplicated Status: Chronic Assessment and Plan: Counseled to quit on the patient states he is currently trying. (7) Cirrhosis: Qualifiers: Ascites presence: with ascites Hepatic cirrhosis type: alcoholic cirrhosis Qualified Code(s): K70.31 - Alcoholic cirrhosis of liver with ascites Code(s): K74.60 - Unspecified cirrhosis of liver Status: Chronic Assessment and Plan: Not acutely decompensated. * Continue spironolactone 100 mg daily, and furosemide 40 mg b.i.d. * Continue propranolol 10 mg p.o. b.i.d. but monitor for acute hepatic encephalopathy (8) Holt's esophagus with esophagitis: Code(s): K22.70 - Holt's esophagus without dysplasia; K20.90 - Esophagitis, unspecified without bleeding Status: Chronic Assessment and Plan: History of Barretts esophagus with esophagitis. * Continue Protonix 40 mg b.
--- NOTE | 2022-12-18 16:10 | PM.IMPN ---
Progress Note: A&P Assessment and Plan (1) Encephalopathy acute: Code(s): G93.40 - Encephalopathy, unspecified Status: Resolved Assessment and Plan: Patient presented to the emergency department and from the [facility] and was reportedly with altered mental status. May be secondary to alcohol withdrawal delirium versus hepatic encephalopathy with mildly elevated ammonia on admission. No evidence of underlying infection. CT head without acute findings. Continue management of acute alcohol withdrawal and lactulose/ rifaximin for elevated ammonia At baseline (2) Alcohol withdrawal syndrome: Qualifiers: Complication of substance-induced condition: with delirium Qualified Code(s): F10.931 - Alcohol use, unspecified with withdrawal delirium Code(s): F10.939 - Alcohol use, unspecified with withdrawal, unspecified Status: Acute Assessment and Plan: Patient is at a [facility]dc currently and reportedly sneaks in alcohol. He admitted to EMS drinking 10 beers prior to presentation. He reported on admission that last drink was 9 days prior to admission and does endorse he has not had a drink in somebody days to me today. He states that prior to this he was drinking Listerine and vodka in unknown quantities. When asked where he received the vodka he states that he ordered it online. His symptoms are consistent with acute alcohol withdrawal CIWA scores are elevated ranging from 4-5 today continue scheduled Librium. Wean Librium. continue thiamine and folic acid supplementation p.o. Patient's tremors noted to worsen when people/staff in the room suggesting some psychological component. (3) Hypomagnesemia: Code(s): E83.42 - Hypomagnesemia Status: Acute Assessment and Plan: Magnesium low 1.5 on 12/14 and repleted with IV supplementation. Repeat magnesium stable at 1.8 Secondary to a chronic alcohol use (4) Transaminitis: Code(s): R74.01 - Elevation of levels of liver transaminase levels Status: Chronic Assessment and Plan: Secondary to chronic alcoholic liver disease. LFT stable when compared to previous labs. Continue to monitor (5) Hyperammonemia: Code(s): E72.20 - Disorder of urea cycle metabolism, unspecified Status: Acute Assessment and Plan: Ammonia minimally elevated 31 upon admission. Unclear if this is contributing to altered mental status on admission but may have been contributing continue lactulose 20 g t.i.d. and rifaximin 550 mg p.o. b.i.d. (6) Alcohol abuse: Code(s): F10.10 - Alcohol abuse, uncomplicated Status: Chronic Assessment and Plan: Counseled to quit on the patient states he is currently trying. (7) Cirrhosis: Qualifiers: Ascites presence: with ascites Hepatic cirrhosis type: alcoholic cirrhosis Qualified Code(s): K70.31 - Alcoholic cirrhosis of liver with ascites Code(s): K74.60 - Unspecified cirrhosis of liver Status: Chronic Assessment and Plan: Not acutely decompensated. Continue spironolactone 100 mg daily, and furosemide 40 mg b.i.d. Continue propranolol 10 mg p.o. b.i.d. but monitor for acute hepatic encephalopathy (8) Holt's esophagus with esophagitis: Code(s): K22.70 - Holt's esophagus without dysplasia; K20.90 - Esophagitis, unspecified without bleeding Status: Chronic Assessment and Plan: History of Barretts esophagus with esophagitis. Continue Protonix 40 mg b.i.d., Carafate q.i.d. and Tums (9) Fracture of left hip: Code(s): S72.002A - Fracture of unspecified part of neck of left femur, initial encounter for closed fracture Status: Chronic Assessment and Plan: Patient reports prior left hip fracture and chronic left hip pain. He states the pain is worse than before. Medical records indicate he had a cervical neck fracture and left hip fracture i
[2022-12-19 06:00] VITALS: BP 106/73; PULSE 75; RESP 16; TEMP 36.6; O2SAT 100
[2022-12-19] MEDS: SALINE 0.65% NAS SOLN 44 ML BTL 1 SPRAY NASAL ×2 (06:08→13:37)
[2022-12-19] MEDS: traMADol HCL (*CRX) 50 MG TABLET PO ×2 (06:09→13:37)
--- NOTE | 2022-12-19 07:08 | PM.DS ---
DS: Admitting Diagnosis Discharge Date 12/19/2022 Admitting Diagnosis Altered mental status Alcohol withdrawal syndrome Hypomagnesemia Transaminitis Hyperammonemia Alcohol abuse Cirrhosis DS: Discharge Diagnosis Discharge Diagnosis (1) Encephalopathy acute: Code(s): G93.40 - Encephalopathy, unspecified Status: Resolved Assessment and Plan: Patient presented to the emergency department and from the detention and was reportedly with altered mental status. May be secondary to alcohol withdrawal delirium versus hepatic encephalopathy with mildly elevated ammonia on admission. No evidence of underlying infection. CT head without acute findings. improved to baseline with management of acute alcohol withdrawal and lactulose/ rifaximin for elevated ammonia (2) Alcohol withdrawal syndrome: Qualifiers: Complication of substance-induced condition: with delirium Qualified Code(s): F10.931 - Alcohol use, unspecified with withdrawal delirium Code(s): F10.939 - Alcohol use, unspecified with withdrawal, unspecified Status: Acute Assessment and Plan: Patient is at a detention currently and reportedly sneaks in alcohol. He admitted to EMS drinking 10 beers prior to presentation. He reported on admission that last drink was 9 days prior to admission and endorsed he has not had a drink in 9 days to me when assuming care (12/16). He stated that prior to this he was drinking Listerine and vodka in unknown quantities. When asked where he received the vodka he states that he ordered it online. His symptoms are consistent with acute alcohol withdrawal including confusion, audio hallucinations, anxiety and tremors. CIWA scores monitored treated with scheduled Librium up to 50 mg PO Q6 hours Weaned Librium to 25 mg PO daily at the time of discharge. continued thiamine and folic acid supplementation p.o. Patient's tremors noted to worsen when people/staff in the room suggesting some psychological component. (3) Hypomagnesemia: Code(s): E83.42 - Hypomagnesemia Status: Acute Assessment and Plan: Magnesium low 1.5 on 12/14 and repleted with IV supplementation. Repeat magnesium stable at 1.8 Secondary to a chronic alcohol use (4) Transaminitis: Code(s): R74.01 - Elevation of levels of liver transaminase levels Status: Chronic Assessment and Plan: Secondary to chronic alcoholic liver disease. LFT stable when compared to previous labs. Continue to monitor (5) Hyperammonemia: Code(s): E72.20 - Disorder of urea cycle metabolism, unspecified Status: Acute Assessment and Plan: Ammonia minimally elevated 31 upon admission. Unclear if this is contributing to altered mental status on admission but may have been contributing continue lactulose 20 g t.i.d. and rifaximin 550 mg p.o. b.i.d. (6) Alcohol abuse: Code(s): F10.10 - Alcohol abuse, uncomplicated Status: Chronic Assessment and Plan: Counseled to quit on the patient states he is currently trying. (7) Cirrhosis: Qualifiers: Ascites presence: with ascites Hepatic cirrhosis type: alcoholic cirrhosis Qualified Code(s): K70.31 - Alcoholic cirrhosis of liver with ascites Code(s): K74.60 - Unspecified cirrhosis of liver Status: Chronic Assessment and Plan: Not acutely decompensated. Continue spironolactone 100 mg daily, and furosemide 40 mg b.i.d. Continue propranolol 10 mg p.o. b.i.d. but monitor for acute hepatic encephalopathy (8) Holt's esophagus with esophagitis: Code(s): K22.70 - Holt's esophagus without dysplasia; K20.90 - Esophagitis, unspecified without bleeding Status: Chronic Assessment and Plan: History of Barretts esophagus with esophagitis. Continue Protonix 40 mg b.i.d., Carafate q.i.d. and Tums (9) Fall: Qualifiers: Encounter type: in
[2022-12-19] MEDS: CALCIUM CARBONATE (TUMS) 500 MG (200 MG ELEMENTAL) PO ×2 (09:54→13:00)
[2022-12-19] MEDS: LACTULOSE 20 GM/30 ML UDC PO ×2 (09:55→13:00)
[2022-12-19] MEDS: chlordiazePOXIDE (*CRX) 25 MG CAPSULE PO (09:55)
[2022-12-19] MEDS: FERROUS SULFATE 324 MG TABLET PO (09:56)
[2022-12-19] MEDS: THIAMINE HCL 100 MG TABLET PO (09:56)
[2022-12-19] MEDS: rifAXIMin 550 MG TABLET PO (09:56)
[2022-12-19] MEDS: PROPRANOLOL HCL 10 MG TABLET PO (09:56)
[2022-12-19] MEDS: GABAPENTIN 300 MG CAPSULE PO ×2 (09:56→13:01)
[2022-12-19] MEDS: SUCRALFATE 1 GM TABLET PO ×2 (09:56→13:00)
[2022-12-19] MEDS: busPIRone HCL 5 MG TABLET 10 MG PO ×2 (09:56→13:00)
[2022-12-19] MEDS: CHOLECALCIFEROL 1,000 UNITS TABLET 5000 UNITS PO (09:56)
[2022-12-19] MEDS: PANTOPRAZOLE 40 MG TABLET PO (09:57)
[2022-12-19] MEDS: POTASSIUM CHLORIDE 20 MEQ TABLET.ER PO (09:57)
[2022-12-19] MEDS: MULTIVITAMINS THERAPEUTIC TAB (*BKC) 1 TABLET PO (09:57)
[2022-12-19] MEDS: SPIRONOLACTONE 50 MG TABLET 100 MG PO (09:57)
[2022-12-19] MEDS: FUROSEMIDE 40 MG TABLET PO (09:57)
[2022-12-19] MEDS: CITALOPRAM HYDROBROMIDE 20 MG TABLET PO (09:57)
[2022-12-19] MEDS: FOLIC ACID 1 MG TABLET PO (09:57)
== END 2022-12-19 14:48 | DRG 775 ==
LOC: ANHED 07:25 → ANH2MED 08:29
PROVIDERS: Physician Assistant; Admitting Provider Internal Medicine; Emergency Provider Emergency Medicine; PCP Physician Assistant; Visit Provider Nurse Practitioner Family
DX: F10.131 Alcohol abuse with withdrawal delirium (principal); E72.20 Disorder of urea cycle metabolism, unspecified; K70.10 Alcoholic hepatitis without ascites; K70.31 Alcoholic cirrhosis of liver with ascites; E83.42 Hypomagnesemia; S72.002K Fracture of unspecified part of neck of left femur, subsequent encounter for closed fracture with nonunion; W06.XXXA Fall from bed, initial encounter; K22.70 Barrett's esophagus without dysplasia; K20.90 Esophagitis, unspecified without bleeding; F41.8 Other specified anxiety disorders; F17.210 Nicotine dependence, cigarettes, uncomplicated; Y90.0 Blood alcohol level of less than 20 mg/100 ml; Z20.822 Contact with and (suspected) exposure to COVID-19
CPT/HCPCS: 36415; 70450; 71045; 73502; 80048; 80053; 80307; 81001; 82010; 82140; 82948; 83605; 83690; 83735; 85025; 85027; 85055; 85610; 85730; 87636; 93005; 96365; 96366; 96367; 96374; 96375; 96376; 97161; 97165; 99285; A9270; G0378; G0379; J2060; J3411; J3475; J7030

== ENCOUNTER 2023-12-14 17:25 | Inpatient (IN) | payer MEDICARE, MEDICAID, SELFPAY ==
--- NOTE | ~2023-12-14 | CT_ITS ---
Clinical Indication: Hypoxia CT Scan of the Chest with Contrast: Technique: Contiguous sections were acquired throughout the chest after intravenous administration of 100 cc of Omnipaque 350. Dose reduction technique was used on this scan by utilizing automated expos ure control and iterative reconstruction technique. The dose-length product (DLP) was 622.73 mGy-cm. COMPARISON: 04/10/2021 Findings: There is no evidence of any significant mediastinal, hilar or axillary lymphadenopathy. There is no f illing defect in the pulmonary arterial tree to suggest pulmonary embolus. There is no evidence of ao rtic dissection or aneurysm. There is no evidence of pleural or pericardial effusion. Stable chronic cavitary lesion in the right upper lobe. There is bibasilar atelectatic change. Images through the upper abdomen reveal nodular contour of liver. Impression: No evidence of pulmonary embolus, aortic dissection, or aortic aneurysm. Chronic cavitary lesion right upper lobe. Given stability since 04/10/2021, this is compatible with be nign/quiescent lesion. Cirrhotic change of the liver. Reviewed, dictated and finalized at location . LE ENGINEER Impression: No evidence of pulmonary embolus, aortic dissection, or aortic aneurysm. Chronic cavitary lesion right upper lobe. Given stability since 04/10/2021, this is compatible with benign/quiescent lesion. Cirrhotic change of the liver.
--- NOTE | ~2023-12-14 | CT_ITS ---
EXAMINATION: CT abdomen pelvis w con DATE: 12/14/2023 22:58 INDICATION: Right abdominal pain. TECHNIQUE: Computed tomography (CT) of the abdomen and pelvis was performed with 100 mL Omnipaque 350 intravenous contrast. Automated exposure control and iterative reconstruction technique were employe d. The dose-length product was 1048.60 mGy-cm. COMPARISON: CT abdomen and pelvis 05/15/2021 FINDINGS: The visualized portions of the lung bases demonstrate mild atelectasis. No pleural effusion . The heart size is normal. No pericardial effusion. There is bilateral gynecomastia. The liver demon strates surface nodularity, consistent with cirrhosis. The gallbladder, spleen, pancreas, adrenal gla nds, and kidneys are normal. There are no dilated loops of bowel. The appendix is normal. There are p araesophageal varices. Paraumbilical varices are noted. There are bilateral inguinal hernias containi ng fat. There are no pathologically enlarged lymph nodes. There is no free intraperitoneal fluid. The re is an old fracture of left femoral neck with nonunion. IMPRESSION: 1. Cirrhosis of the liver with portal venous hypertension. 2. 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 Reviewed, dictated and finalized at location E. RETE ENGINEERING TECHNICIAN
--- NOTE | ~2023-12-14 | US_ITS ---
EXAMINATION: US abdomen limited DATE: 12/17/2023 09:16 INDICATION: Right upper quadrant pain TECHNIQUE: Multiple grayscale and Doppler ultrasound images of the abdomen were obtained. COMPARISON: 05/27/2022; CT, 12/14/2023 FINDINGS: Bowel gas obscures visualization of the pancreas. The visualized portions of the pancreas a re unremarkable. The liver demonstrates diffusely heterogeneous echotexture. There is nodularity of t he liver surface. Normal hepatopetal flow in the main portal vein. The gallbladder is mostly contract ed. No gallstones, pericholecystic fluid, or gallbladder wall thickening are identified. The normal c ommon bile duct measures 3 mm. There was no sonographic Venegas sign. IMPRESSION: 1. Cirrhosis Reviewed, dictated and finalized at location B. ITION PROGRAM INSTRUCTOR IMPRESSION: 1. Cirrhosis
--- NOTE | ~2023-12-14 | XR_ITS ---
EXAMINATION: XR chest 2V DATE: 12/14/2023 18:15 INDICATION: Dyspnea. TECHNIQUE: Frontal and lateral views of the chest were obtained. COMPARISON: Chest single view 12/14/2022, CT abdomen and pelvis 05/15/2021 FINDINGS: There is a small right pleural effusion. There is a diffuse interstitial pattern in the eli gs, consistent mild pulmonary edema. No pneumothorax. The heart size is normal. There are prominent p aracardial fat pads. IMPRESSION: 1. Mild pulmonary edema. 2. Small right pleural effusion. Reviewed, dictated and finalized at location E. ELING OPERATOR
--- NOTE | ~2023-12-14 | XR_ITS ---
EXAMINATION: XR ribs RT 2V w CXR 2V DATE: 12/15/2023 17:44 INDICATION: Pleuritic chest pain. TECHNIQUE: A frontal view of the chest and 2 views on 4 radiographs of the right ribs were obtained. COMPARISON: Chest two views 12/14/23, chest CT 12/15/23, 04/10/21 FINDINGS: There is chronic cavitation and scarring in right lung upper lobe. There is mild atelectasi s bilaterally. No pleural effusion or pneumothorax. The heart size is normal. There is an old healed fracture of right fifth rib. IMPRESSION: 1. No acute rib fracture. 2. Chronic cavitation and scarring in right lung upper lobe. Reviewed, dictated and finalized at location E. EVAL ENGLISH LITERATURE PROFESSOR
[2023-12-14 17:42] VITALS: BP 120/69; PULSE 85; RESP 18; TEMP 36.8; O2SAT 90
--- NOTE | 2023-12-14 17:47 | ED.ABDPAIN ---
HPI - Abdominal Pain General Chief Complaint: Abdominal Pain <Lima Hernandez PA-C - Last Filed: 12/15/23 13:30> Stated Complaint: abd pain, N/V <Lima Hernandez PA-C - Last Filed: 12/15/23 13:30> Time Seen by Provider: 12/14/23 17:48 <Lima Hernandez PA-C - Last Filed: 12/15/23 13:30> Focused HPI: This is a 38 year old male that presents to the ER for abdominal pain. Reports right lower quadrant pain. Reports pain is worse with deep breathing. Patient found to be hypoxic in the upper 80s on room air. Placed on 2L NC by EMS. Reports history of cirrhosis. His GI doctor is Dr. Cat. GENERAL: Chronically ill-appearing, well-nourished, and in no acute distress. HEAD: Normocephalic, atraumatic. CHEST: No respiratory distress. Rales at the lung bases HEART: Regular rate and rhythm.? NEURO: ?Alert and oriented x3. Patient screened in triage and initial orders placed.? ?Additional care and disposition to be based upon?diagnostic testing and treatment. <Lima Hernandez PA-C - Last Filed: 12/15/23 13:30> Focused HPI: This is a 38 year old male that presents to the ER via EMS for abdominal pain. Patient is a resident of [facility]. Reports right sided abdominal pain. States pain has been present and intermittent for several months but became worse over last 4 days. Reports pain is worse with deep breathing and certain foods. Reports abd bloating, nausea, and subjective fevers, denies vomiting, diarrhea, constipation. Patient found to be hypoxic in the upper 80s on room air. Placed on 2L NC by EMS. Denies previous O2 therapy. He does report recent cough and SOB. Reports history of cirrhosis. Has required paracentesis in the past. Former alcoholic. His GI doctor is Dr. Cat. GENERAL: Chronically ill-appearing, well-nourished, and in no acute distress. HEAD: Normocephalic, atraumatic. CHEST: No respiratory distress. Rales at the lung bases HEART: Regular rate and rhythm.? NEURO: ?Alert and oriented x3. Patient screened in triage and initial orders placed.? ?Additional care and disposition to be based upon?diagnostic testing and treatment. <Emperatriz Neri PA-C - Last Filed: 12/15/23 04:48> Source: patient <Lima Hernandez PA-C - Last Filed: 12/15/23 13:30> Mode of arrival: EMS <Lima Hernandez PA-C - Last Filed: 12/15/23 13:30> Limitations: no limitations <Lima Hernandez PA-C - Last Filed: 12/15/23 13:30> Related Data Home Medications: Home Medications Medication Instructions Recorded Confirmed thiamine HCl (vitamin B1) 100 mg 100 mg PO DAILY 04/20/21 12/15/23 tablet melatonin 3 mg tablet 3 mg PO HS PRN Insomnia 09/15/21 12/15/23 ferrous sulfate 325 mg (65 mg 325 mg PO DAILY 11/12/21 12/15/23 iron) tablet rifaximin 550 mg tablet (Xifaxan) 550 mg PO BID 11/12/21 12/15/23 baclofen 10 mg tablet 10 mg PO TID 01/22/22 12/15/23 acetaminophen 500 mg tablet 1,000 mg PO TID PRN Pain 06/24/22 12/15/23 (Acetaminophen Extra Strength) calcium carbonate 500 mg calcium 500 mg PO TID 06/24/22 12/15/23 (1,250 mg) chewable tablet cholecalciferol (vitamin D3) 125 125 mcg PO DAILY 06/24/22 12/15/23 mcg (5,000 unit) tablet gabapentin 300 mg tablet 600 mg PO TID 06/24/22 12/15/23 potassium chloride 20 mEq 20 meq PO DAILY 06/24/22 12/15/23 tablet,extended release buspirone 5 mg tablet 5 mg PO TID 12/14/22 12/15/23 furosemide 20 mg tablet (Lasix) 40 mg PO BID 12/14/22 12/15/23 hydroxyzine HCl 25 mg tablet 25 mg PO TID 12/14/22 12/15/23 ondansetron HCl 4 mg tablet 4 mg PO Q8H PRN Nausea And Vomiting 12/14/22 12/15/23 spironolactone 50 mg tablet 100 mg PO DAILY 12/14/22 12/15/23 (Aldactone) Reglan 10 mg PO DAILY 12/15/23 12/15/23 bupropion HCl 75 mg tablet 150 mg PO DAILY 12/15/23 12/15/23 diazepam 5 mg tablet 5 mg PO BID 12/15/23 12/15/23 diclofenac sodium 1 % topical gel 2 g topical QID PRN Pain 12/15/23 12/15/23 hydrocodone 7.5 mg-acetaminophen 1 tablet PO Q4H PRN
--- NOTE | 2023-12-14 17:48 | ECG_ITS ---
Measurements Intervals [place] Rate: 84 P: 20 VA: 134 QRS: -2 QRSD: 96 T: 56 QT: 356 QTc: 421 Interpretive Statements SINUS RHYTHM NONSPECIFIC T-WAVE ABNORMALITY BORDERLINE ECG COMPARED TO ECG 12/14/2022 07:31:09 SINUS RHYTHM NOW PRESENT T-WAVE ABNORMALITY NOW PRESENT Electronically Signed On 12-15-2023 16:15:59 CRIMINAL JUSTICE PROGRAM DIRECTOR by Jeremie Bauer M.D.
[2023-12-14 17:49] VITALS: O2SAT 94
[2023-12-14 18:47] LABS: Basophils Absolute Auto 0.1 K/mm3 (0.0-0.1); Basophils Percent Auto 0.7 % (0.2-1.2); Eosinophils Absolute Auto 0.3 K/mm3 (0-0.3); Eosinophils Percent Auto 3.5 % (0-4.4); Hematocrit 46.2 % (42.0-52.0); Hemoglobin 15.2 g/dL (14.0-18.0); Immature Granulocyte Absolute 0.04 K/mm3 (0.00-0.031); Immature Granulocyte Percent A 0.5 % (0-0.5); Lymphocytes Absolute Auto 1.73 K/mm3 (0.9-3.2); Lymphocytes Percent Auto 21.1 % (18.3-44.2); Mean Corpuscular HGB Conc 32.9 g/dl (32-36); Mean Corpuscular Hemoglobin 31.9 pg (26-34); Mean Corpuscular Volume 96.9 fl (80-100); Mean Platelet Volume 10.6 fl (7.4-10.4); Monocytes Absolute Auto 1.1 K/mm3 (0.1-0.6); Monocytes Percent Auto 13.6 % (2.6-8.5); Neutrophils Percent Auto 60.6 % (45.5-73.1); Platelet Count Result 200 k/mm3 (150-375); Red Blood Count 4.77 M/mm3 (4.6-6.20); Red Cell Distribution Width 12.8 % (11.5-14.5); White Blood Count 8.2 K/mm3 (4.5-10.0)
[2023-12-14 18:55] LABS: Appearance Urine Clear (Clear); Bilirubin Urine Negative (Negative); Blood Urine Negative (Negative); Color Urine Yellow (Yellow); Glucose Urine UA Negative (Negative); Ketones Urine Negative (Negative); Leukocyte Esterase Ur Negative LEU/UL (Negative); Nitrate Urine Negative (Negative); Protein Urine Negative (Negative); Specific Grav Ur 1.018 (1.001-1.035); Urobilinogen Urine 0.2 mg/dL (<2.0); pH Urine 5.5 (5.0-9.0)
[2023-12-14 18:56] LABS: Partial Thromboplastin Time 37.6 SECONDS (22.3-36.8); Prothrombin Time 13.8 Seconds (11.1-14.7)
[2023-12-14 18:59] LABS: Alanine Aminotransferase 29 U/L (6-50); Albumin Level 4.3 g/dL (3.5-5.1); Alkaline Phosphatase 58 U/L (38-126); Anion Gap 3 mmol/L (8-16); Aspartate Amino Transferase 36 U/L (17-59); Bilirubin,Total 0.7 mg/dL (0.2-1.3); Blood Urea Nitrogen 14 mg/dL (9-20); Calcium 9.1 mg/dL (8.4-10.2); Carbon Dioxide 33 mmol/L (22-30); Chloride 99 mmol/L (98-107); Estimated CRCL calculation 116 ml/min; Estimated Glomerular Filt Rate > 60; Ethanol < 10 mg/dL (<10); Glucose 94 mg/dL (65-110); Lipase 77 U/L (23-300); Potassium 4.1 mmol/L (3.4-5.0); Sodium 135 mmol/L (137-145)
[2023-12-14 19:02] LABS: Add Urine Microscopic? NO
[2023-12-14 19:10] LABS: Amphetamine Screen Urine Negative (Negative); Barbiturate Screen Urine Negative (Negative); Benzodiazepines Screen Urine Positive (Negative); Cannabinoid Screen Urine Negative (Negative); Cocaine Screen Urine Negative (Negative); Methadone Screen Urine Negative (Negative); Opiate Screen Urine Positive (Negative); Phencyclidine Screen Urine Negative (Negative)
[2023-12-14 22:05] VITALS: BP 123/89; PULSE 77; RESP 17
[2023-12-14 23:11] LABS: NT Pro B Type Natriuretic Pept < 20 pg/mL (19.9-100); Troponin I < 0.012 ng/mL (0.000-0.034)
[2023-12-14 23:57] VITALS: BP 123/89; PULSE 74; RESP 15; O2SAT 98
[2023-12-15] VITALS (12 sets, daily range): BP systolic 110–128; BP diastolic 66–96; PULSE 77–110; RESP 14–18; TEMP 36.4–36.8; O2SAT 93–97; BMI 31.4
[2023-12-15 00:14] LABS: Magnesium 1.9 mg/dL (1.6-2.3)
[2023-12-15 00:20] LABS: Ammonia 11 umol/L (9-30); D Dimer 1.67 ug/mL (<0.48)
[2023-12-15 00:39] LABS: Influenza A QL RT-PCR Negative (Negative); Influenza B QL RT-PCR Negative (Negative); RSV RNA, RT-PCR Negative (Negative); SARS-CoV-2 RNA PCR Negative (Negative)
--- NOTE | 2023-12-15 02:28 | PM.IMHP ---
H&P: HPI History of Present Illness Date/Time: 12/15/23 02:28 Chief Complaint: Shortness of breath Narrative: This is a 38-year-old male with past medical history significant for alcohol dependence, hepatic cirrhosis, left known heel hip fracture, [facility] resident. Patient was brought to the emergency room due to shortness of breath, pain with deep inspiration, abdominal discomfort. He was found to have an oxygen saturation of 86% on room air and placed on supplemental oxygen by nasal cannula. Patient cannot really contribute much to history he dozes off during my visit. Preliminary workup was significant for CTA of the chest was negative for pulmonary embolism but patient was found to have multifocal pneumonia and probable aspiration. Patient has been admitted for further evaluation management and treatment. EXAMINATION: XR chest 2V DATE: 12/14/2023 18:15 INDICATION: Dyspnea. TECHNIQUE: Frontal and lateral views of the chest were obtained. COMPARISON: Chest single view 12/14/2022, CT abdomen and pelvis 05/15/2021 FINDINGS: There is a small right pleural effusion. There is a diffuse interstitial pattern in the lungs, consistent mild pulmonary edema. No pneumothorax. The heart size is normal. There are prominent paracardial fat pads. IMPRESSION: 1. Mild pulmonary edema. 2. Small right pleural effusion. EXAMINATION: CT abdomen pelvis w con DATE: 12/14/2023 22:58 INDICATION: Right abdominal pain. TECHNIQUE: Computed tomography (CT) of the abdomen and pelvis was performed with 100 mL Omnipaque 350 intravenous contrast. Automated exposure control and iterative reconstruction technique were employed. The dose-length product was 1048.60 mGy-cm. COMPARISON: CT abdomen and pelvis 05/15/2021 FINDINGS: The visualized portions of the lung bases demonstrate mild atelectasis. No pleural effusion. The heart size is normal. No pericardial effusion. There is bilateral gynecomastia. The liver demonstrates surface nodularity, consistent with cirrhosis. The gallbladder, spleen, pancreas, adrenal glands, and kidneys are normal. There are no dilated loops of bowel. The appendix is normal. There are paraesophageal varices. Paraumbilical varices are noted. There are bilateral inguinal hernias containing fat. There are no pathologically enlarged lymph nodes. There is no free intraperitoneal fluid. There is an old fracture of left femoral neck with nonunion. IMPRESSION: 1. Cirrhosis of the liver with portal venous hypertension. 2. 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 CT Scan of the Chest with Contrast: Technique: Contiguous sections were acquired throughout the chest after intravenous administration of 100 cc of Omnipaque 350. Dose reduction technique was used on this scan by utilizing automated exposure control and iterative reconstruction technique. The dose-length product (DLP) was 622.73 mGy-cm. COMPARISON: 04/10/2021 Findings: There is no evidence of any significant mediastinal, hilar or axillary lymphadenopathy. There is no filling defect in the pulmonary arterial tree to suggest pulmonary embolus. There is no evidence of aortic dissection or aneurysm. There is no evidence of pleural or pericardial effusion. Stable chronic cavitary lesion in the right upper lobe. There is bibasilar atelectatic change. Images through the upper abdomen reveal nodular contour of liver. Impression: No evidence of pulmonary embolus, aortic dissection, or aortic aneurysm. Chronic cavitary lesion right upper lobe. Given stability since 04/10/2021, this is compatible with benign/quiescent lesion. Cirrhotic change of the liver. Review of Systems Review of Systems: Shortness of breath, pain with deep inspiration, abdominal discomfort. ROS unobtainable: Yes unobtainable due to mental status (Lethargy/obtundation) [facility] Past Medical History Medical History Alcohol abuse Alc
--- NOTE | 2023-12-15 05:19 | ADMGEN ---
This patient, Lukas Diaz, was admitted to 3 Med Surg Room 307-02. Patient/family oriented to hospital policies and general routines including ID bracelet, bed and alarms, visiting hours, pain management, procedures, bathroom and other care routines, personal items, smoking policy, room service/diet, and visiting hours. Information on how to activate the Rapid Response Team has been discussed. Patient/Family are encouraged to report perceived risks to care and to ask questions if they do not understand what they are told or what they should do.
[2023-12-15] MEDS: AZITHROMYCIN 500 MG/NS 250 ML 500 MG/250 ML BAG 250 MG IVPB (06:40)
[2023-12-15 08:43] LABS: Hemoglobin 14.8 g/dL (14.0-18.0); Mean Corpuscular HGB Conc 32.9 g/dl (32-36); Mean Corpuscular Hemoglobin 31.9 pg (26-34); Mean Platelet Volume 11.8 fl (7.4-10.4); Platelet Count Result 202 k/mm3 (150-375); Red Blood Count 4.64 M/mm3 (4.6-6.20); Red Cell Distribution Width 12.8 % (11.5-14.5); White Blood Count 6.2 K/mm3 (4.5-10.0)
[2023-12-15 08:55] LABS: Alanine Aminotransferase 28 U/L (6-50); Albumin Level 4.2 g/dL (3.5-5.1); Alkaline Phosphatase 71 U/L (38-126); Anion Gap 7 mmol/L (8-16); Aspartate Amino Transferase 30 U/L (17-59); Bilirubin,Total 0.7 mg/dL (0.2-1.3); Blood Urea Nitrogen 12 mg/dL (9-20); Calcium 9.3 mg/dL (8.4-10.2); Carbon Dioxide 32 mmol/L (22-30); Chloride 98 mmol/L (98-107); Estimated CRCL calculation 131 ml/min; Estimated Glomerular Filt Rate > 60; Glucose 75 mg/dL (65-110); Lipase 95 U/L (23-300); Magnesium 2.1 mg/dL (1.6-2.3); Potassium 3.7 mmol/L (3.4-5.0); Sodium 137 mmol/L (137-145)
--- NOTE | 2023-12-15 13:39 | PC.NURSE ---
This RN spoke to MD this morning prior to administering the patients morning medications. MD orders that his medications be held until the patient has been seen by the GI consult.
--- NOTE | 2023-12-15 16:14 | WPDGICN ---
Assessment and Plan Assessment and plan (1) Abdominal pain: Qualifiers: Abdominal location: generalized Qualified Code(s): R10.84 - Generalized abdominal pain Code(s): R10.9 - Unspecified abdominal pain Status: Resolved Assessment and Plan: complains of pain and is in fact tender in the right upper quadrant. CT scan which I reviewed does not show any abnormalities that would explain his symptoms. He is also tender over the lower ribs and perhaps has a cracked her fractured ribs? 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 (3) Cirrhosis: Qualifiers: Hepatic cirrhosis type: alcoholic cirrhosis Ascites presence: with ascites Qualified Code(s): K70.31 - Alcoholic cirrhosis of liver with ascites Code(s): K74.60 - Unspecified cirrhosis of liver Status: Chronic Assessment and Plan: He has a history of heavy alcohol abuse. He states he does not drink alcohol now. 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. He is on rifaximin for hepatic encephalopathy and states that it has controlled his ammonia levels. (4) Portal hypertension: Code(s): K76.6 - Portal hypertension Status: Acute Assessment and Plan: He had an EGD here a year so ago that revealed small varices that did not require banding. He is maintained on propranolol 10 mg twice a day for portal hypertension (5) Hepatic encephalopathy: Code(s): K72.90 - Hepatic failure, unspecified without coma Status: Acute Assessment and Plan: he has in the past had apparently elevated ammonia levels and states that he is doing well with his current regimen of rifaximin and lactulose Plan for a gastrointestinal standpoint the I do not see any acute problems with his liver but the pain needs to be investigated. agree with his current management in terms of medication for his liver disease and portal hypertension. I will order x-rays of his ribs GI Consult Note Consult date/time: 12/15/23 16:14 HPI: Lukas Diaz is a 38 year old male who was admitted to the emergency room last night because of shortness of breath and pain on deep inspiration. He was complaining of pain in the right upper quadrant and right lower thorax that is worse if he is yawns or sneezes or coughs, or takes a deep breath. CT scan did not show any acute abnormalities. He is known to have cirrhosis and is under the care of at [facility] whom he sees about once a month. He states that her has been no recent change in his medications. Because his abdomen was distended he was sent for possible paracentesis, however CT scan done yesterday did not show any ascitic fluid. Review of Systems Review of Systems: All systems reviewed & are unremarkable except as noted in HPI and below PMFSH Past Medical History Medical History Alcohol abuse Alcoholic hepatitis Holt's esophagus with esophagitis Chronic anemia Cirrhosis Depression with anxiety Esophageal varices Fracture of left hip GI bleed Secondary to bleeding varices. Tobacco abuse Surgical History Surgical History History of colonoscopy with polypectomy (05/25/22) Benign colon polyp, internal hemorrhoids. History of esophagogastroduodenoscopy (05/22/22) Nonbleeding esophageal varices, Holt esophagus without dysplasia, gastritis. Family History Family History Mother Liver disease Cirrhosis Grandparent Heart failure Heart attack
[2023-12-15 16:48] LABS: Procalcitonin 0.1 ng/mL
[2023-12-15 16:49] LABS: CRP 3.9 mg/dL (<1.0)
--- NOTE | 2023-12-15 17:32 | PM.IMPN ---
Progress Note: A&P Assessment and Plan (1) Acute hypoxic respiratory failure: Code(s): J96.01 - Acute respiratory failure with hypoxia Status: Acute Assessment and Plan: On supplemental oxygen by nasal cannula Supportive care 12/15- In ED O2 stats 80s w/o O2, Currently on 2L via NC-O2 stats >90s% Encourage deep breathing efforts- consider IS Wean O2 via NC as tolerated Continue to monitor (2) Multifocal pneumonia: Code(s): J18.9 - Pneumonia, unspecified organism Status: Acute Assessment and Plan: Patient started on Rocephin and Zithromax await cultures 12/15: Chest Xray noted Small right pleural effusion and mild pulmonary edema CTA Chest- No evidence of pulmonary embolus IV abx continued Blood cultures pending (3) Abdominal ascites: Qualifiers: Ascites type: due to alcoholic cirrhosis Qualified Code(s): K70.31 - Alcoholic cirrhosis of liver with ascites Code(s): R18.8 - Other ascites Status: Acute Assessment and Plan: Consider paracentesis if significant discomfort Continue to monitor 12/15- Abd pain right sided CT ABD- note here is no free intraperitoneal fluid. Cirrhosis of the liver with portal venous hypertension. 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 (5) Alcohol dependence: Code(s): F10.20 - Alcohol dependence, uncomplicated Status: Acute Assessment and Plan: Continue to monitor Denies current drinking Time Spent With Patient Time with patient: 15 - 25 minutes Subjective Date/time seen: 12/15/23 1015 Interval history: ED: Focused HPI: This is a 38 year old male that presents to the ER via EMS for abdominal pain. Patient is a resident of [facility] left hip fracture that was not surgically repaired, leaving patient wheelchair bound. Reports right sided abdominal pain. States pain has been present and intermittent for several months but became worse over last 4 days. Reports pain is worse with deep breathing and certain foods. Reports abd bloating, nausea, and subjective fevers, denies vomiting, diarrhea, constipation. Patient found to be hypoxic in the upper 80s on room air. Placed on 2L NC by EMS. Denies previous O2 therapy. He does report recent cough and SOB. Reports history of cirrhosis. Has required paracentesis in the past. Former alcoholic. His GI doctor is Dr. Cat. HPI Narrative: Chief Complaint: Shortness of breath This is a 38-year-old male with past medical history significant for alcohol dependence, hepatic cirrhosis, left known heel hip fracture, prison resident. Patient was brought to the emergency room due to shortness of breath, pain with deep inspiration, abdominal discomfort. He was found to have an oxygen saturation of 86% on room air and placed on supplemental oxygen by nasal cannula. Patient cannot really contribute much to history he dozes off during my visit. Preliminary workup was significant for CTA of the chest was negative for pulmonary embolism but patient was found to have multifocal pneumonia and probable aspiration. Patient has been admitted for further evaluation management and treatment. 12/15 Patient examined at bedside in interval assessment as presented to ED from SNF with shortness of breath and ABD pain. He requir
[2023-12-15] MEDS: SUCRALFATE SUSP 100 MG/ML 10 ML UDC 1000 MG PO (17:59)
[2023-12-15] MEDS: LACTULOSE 20 GM/30 ML UDC PO (17:59)
[2023-12-15] MEDS: QUEtiapine FUMARATE 12.5 MG TABLET PO (18:00)
[2023-12-15] MEDS: GABAPENTIN 300 MG CAPSULE 600 MG PO (18:00)
[2023-12-15] MEDS: hydrOXYzine HCL 25 MG TABLET PO (18:00)
[2023-12-15] MEDS: rifAXIMin 550 MG TABLET PO (18:00)
[2023-12-15] MEDS: CALCIUM CARBONATE (TUMS) 500 MG (200 MG ELEMENTAL) PO (18:00)
[2023-12-15] MEDS: BACLOFEN 10 MG TABLET PO (18:01)
[2023-12-15] MEDS: PROPRANOLOL HCL 10 MG TABLET PO (18:01)
[2023-12-15] MEDS: FUROSEMIDE 40 MG TABLET PO (18:01)
[2023-12-15] MEDS: busPIRone HCL 5 MG TABLET PO (18:01)
[2023-12-15] MEDS: diazePAM (*CRX) 5 MG TABLET PO (18:02)
[2023-12-15] MEDS: traZODone HCL 25 MG TABLET 75 MG PO (20:17)
[2023-12-15] MEDS: MAGNESIUM OXIDE 400 MG TABLET PO (20:17)
[2023-12-15] MEDS: MELATONIN 3 MG TABLET PO (20:17)
[2023-12-15 20:57] LABS: Glucose Point of Care 119 mg/dl (65-105)
[2023-12-16] VITALS (12 sets, daily range): BP systolic 101–122; BP diastolic 70–80; PULSE 70–114; RESP 18–20; TEMP 36.3–36.9; O2SAT 93–96
[2023-12-16] MEDS: AZITHROMYCIN 500 MG/NS 250 ML 500 MG/250 ML BAG 250 MG IVPB (05:33)
[2023-12-16] MEDS: SUCRALFATE SUSP 100 MG/ML 10 ML UDC 1000 MG PO ×3 (05:34→17:18)
[2023-12-16 06:09] LABS: Hemoglobin 14.7 g/dL (14.0-18.0); Mean Corpuscular HGB Conc 33.4 g/dl (32-36); Mean Corpuscular Hemoglobin 31.7 pg (26-34); Mean Platelet Volume 10.8 fl (7.4-10.4); Platelet Count Result 207 k/mm3 (150-375); Red Blood Count 4.63 M/mm3 (4.6-6.20); Red Cell Distribution Width 12.6 % (11.5-14.5); White Blood Count 6.9 K/mm3 (4.5-10.0)
[2023-12-16 06:17] LABS: Alanine Aminotransferase 25 U/L (6-50); Albumin Level 4.1 g/dL (3.5-5.1); Alkaline Phosphatase 68 U/L (38-126); Anion Gap 7 mmol/L (8-16); Aspartate Amino Transferase 27 U/L (17-59); Bilirubin,Total 0.7 mg/dL (0.2-1.3); Blood Urea Nitrogen 12 mg/dL (9-20); Calcium 9.5 mg/dL (8.4-10.2); Carbon Dioxide 26 mmol/L (22-30); Chloride 103 mmol/L (98-107); Estimated CRCL calculation 131 ml/min; Estimated Glomerular Filt Rate > 60; Glucose 88 mg/dL (65-110); Lipase 101 U/L (23-300); Magnesium 2.1 mg/dL (1.6-2.3); Potassium 3.5 mmol/L (3.4-5.0); Sodium 136 mmol/L (137-145)
[2023-12-16] MEDS: busPIRone HCL 5 MG TABLET PO ×3 (08:11→17:19)
[2023-12-16] MEDS: CHOLECALCIFEROL 1,000 UNITS TABLET 5000 UNITS PO (08:11)
[2023-12-16] MEDS: BACLOFEN 10 MG TABLET PO ×3 (08:11→17:18)
[2023-12-16] MEDS: METOCLOPRAMIDE HCL 10 MG TABLET PO (08:11)
[2023-12-16] MEDS: buPROPion HCL 75 MG TABLET 150 MG PO (08:11)
[2023-12-16] MEDS: POTASSIUM CHLORIDE 20 MEQ ER TABLET PO (08:12)
[2023-12-16] MEDS: diazePAM (*CRX) 5 MG TABLET PO ×2 (08:12→17:18)
[2023-12-16] MEDS: hydrOXYzine HCL 25 MG TABLET PO ×3 (08:12→17:19)
[2023-12-16] MEDS: FUROSEMIDE 40 MG TABLET PO ×2 (08:12→17:19)
[2023-12-16] MEDS: FOLIC ACID 1 MG TABLET PO (08:12)
[2023-12-16] MEDS: GABAPENTIN 300 MG CAPSULE 600 MG PO ×3 (08:12→17:19)
[2023-12-16] MEDS: FERROUS SULFATE 325 MG TABLET DR PO (08:12)
[2023-12-16] MEDS: THIAMINE HCL 100 MG TABLET PO (08:13)
[2023-12-16] MEDS: QUEtiapine FUMARATE 12.5 MG TABLET PO ×3 (08:13→17:20)
[2023-12-16] MEDS: PROPRANOLOL HCL 10 MG TABLET PO ×2 (08:13→17:19)
[2023-12-16] MEDS: SPIRONOLACTONE 50 MG TABLET 100 MG PO (08:13)
[2023-12-16] MEDS: rifAXIMin 550 MG TABLET PO ×2 (08:13→17:20)
[2023-12-16] MEDS: SERTRALINE HCL 50 MG TABLET PO (08:13)
[2023-12-16] MEDS: CALCIUM CARBONATE (TUMS) 500 MG (200 MG ELEMENTAL) PO ×2 (11:35→17:18)
[2023-12-16] MEDS: LACTULOSE 20 GM/30 ML UDC PO (11:36)
[2023-12-16] MEDS: HYDROcodone/acetaminophen (*CRX) 7.5-325 MG TABLET 1 TAB PO ×2 (11:36→17:24)
--- NOTE | 2023-12-16 17:05 | PM.IMPN ---
Progress Note: A&P Assessment and Plan (1) Acute hypoxic respiratory failure: Code(s): J96.01 - Acute respiratory failure with hypoxia Status: Acute Assessment and Plan: On supplemental oxygen by nasal cannula Supportive care 12/15- In ED O2 stats 80s w/o O2, Currently on 2L via NC-O2 stats >90s% Encourage deep breathing efforts- consider IS Wean O2 via NC as tolerated Continue to monitor 12/16- On room air, no acute distress noted. normal respiratory effort (2) Multifocal pneumonia: Code(s): J18.9 - Pneumonia, unspecified organism Status: Acute Assessment and Plan: Patient started on Rocephin and Zithromax await cultures 12/15: Chest Xray noted Small right pleural effusion and mild pulmonary edema CTA Chest- No evidence of pulmonary embolus IV abx continued Blood cultures pending 12/16- LCTAB, not requiring supplemental O2 at time of assessment De-escalted IV abx to PO- Azithromycin and Augmentin Educated patient on getting up to chair, deep breathing exercises. (3) Abdominal ascites: Qualifiers: Ascites type: due to alcoholic cirrhosis Qualified Code(s): K70.31 - Alcoholic cirrhosis of liver with ascites Code(s): R18.8 - Other ascites Status: Acute Assessment and Plan: Consider paracentesis if significant discomfort Continue to monitor 12/15- Abd pain right sided CT ABD- note here is no free intraperitoneal fluid. Cirrhosis of the liver with portal venous hypertension. 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 TECHNIQUE: Computed tomography (CT) of the abdomen and pelvis was performed with 100 mL Omnipaque 350 intravenous contrast. Automated exposure control and iterative reconstruction technique were employed. The dose-length product was 1048.60 mGy-cm. COMPARISON: CT abdomen and pelvis 05/15/2021 FINDINGS: The visualized portions of the lung bases demonstrate mild atelectasis. No pleural effusion. The heart size is normal. No pericardial effusion. There is bilateral gynecomastia. The liver demonstrates surface nodularity, consistent with cirrhosis. The gallbladder, spleen, pancreas, adrenal glands, and kidneys are normal. There are no dilated loops of bowel. The appendix is normal. There are paraesophageal varices. Paraumbilical varices are noted. There are bilateral inguinal hernias containing fat. There are no pathologically enlarged lymph nodes. There is no free intraperitoneal fluid. There is an old fracture of left femoral neck with nonunion. IMPRESSION: 1. Cirrhosis of the liver with portal venous hypertension. 2. 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 GI reviewed scan and assessed patient and note CT scan did not show any acute abnormalities. From GI standpoint there is not any acute problems with his liver and in agreement with his current management in terms of medication for his liver disease and portal hypertension. Xray ordered per GI and noted no acute rib fracture, Chronic cavitation and scarring in right lung upper lobe. There is an old healed fracture of right fifth rib- Patient denies any known hx of injury to this site. 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
[2023-12-16] MEDS: NICOTINE (*PBKC) 21 MG PATCH 1 PATCH TRANSDERM (17:17)
[2023-12-16] MEDS: traZODone HCL 25 MG TABLET 75 MG PO (20:20)
[2023-12-16] MEDS: MELATONIN 3 MG TABLET PO (20:20)
[2023-12-16] MEDS: MAGNESIUM OXIDE 400 MG TABLET PO (20:20)
[2023-12-17] VITALS (11 sets, daily range): BP systolic 93–122; BP diastolic 58–84; PULSE 57–92; RESP 18–20; TEMP 36.4–36.7; O2SAT 92–95
--- NOTE | 2023-12-17 06:11 | WPDGIPROGNO ---
Progress Note: A&P Assessment and Plan (1) Abdominal pain: Qualifiers: Abdominal location: generalized Qualified Code(s): R10.84 - Generalized abdominal pain Code(s): R10.9 - Unspecified abdominal pain Status: Resolved Assessment and Plan: complains of pain and is in fact tender in the right upper quadrant. CT scan which I reviewed does not show any abnormalities that would explain his symptoms. He is also tender over the lower ribs and perhaps has a cracked her fractured ribs? Chest and rib x-rays showed no acute fracture. 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 (3) Cirrhosis: Qualifiers: Hepatic cirrhosis type: alcoholic cirrhosis Ascites presence: with ascites Qualified Code(s): K70.31 - Alcoholic cirrhosis of liver with ascites Code(s): K74.60 - Unspecified cirrhosis of liver Status: Chronic Assessment and Plan: He has a history of heavy alcohol abuse. He states he does not drink alcohol now. 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 He is on rifaximin for hepatic encephalopathy and states that it has controlled his ammonia levels. (4) Portal hypertension: Code(s): K76.6 - Portal hypertension Status: Acute Assessment and Plan: He had an EGD here a year so ago that revealed small varices that did not require banding. He is maintained on propranolol 10 mg twice a day for portal hypertension (5) Hepatic encephalopathy: Code(s): K72.90 - Hepatic failure, unspecified without coma Status: Acute Assessment and Plan: he has in the past had apparently elevated ammonia levels and states that he is doing well with his current regimen of rifaximin and lactulose Plan for a gastrointestinal standpoint the I do not see any acute problems with his liver but the pain needs to be investigated. agree with his current management in terms of medication for his liver disease and portal hypertension. I will order x-rays of his ribs 12/17/2023 no significant gastrointestinal issues at the present time. I will sign off Subjective Date/time seen: 12/17/23 06:11 He states he is comfortable today. Tolerating his regular diet. No new complaints. He does still however complain of pain in the right costal margin area particularly with deep breath and cough. I told that this is likely related to his pulmonary problem and not from his liver. Exam Const: General: cooperative, healthy appearing and overweight Nutritional Appearance: overweight Orientation/consciousness: patient oriented x3 HENMT: Head: normal to inspection Ears: hearing grossly normal bilaterally Mouth: Yes Normal oral and palatal mucosa present Eyes: General: appearance normal, both eyes and all related structures Neck: Neck: normal visual inspection Chest: Chest palpation & inspection: normal inspection of the chest Resp: Effort & Inspection: normal respiratory effort Auscultation: clear to auscultation bilaterally Cardio: Rate: regular rate Rhythm: regular rhythm GI: Inspection: normal to inspection GI Palp: Yes abdominal tenderness ( Right upper quadrant) and Yes No hepatosplenomegaly present Auscultation: normal bowel sounds Skin: General skin exam: normal color and no jaundice Neuro: General: patient oriented x3 Speech: normal speech Objective Data Vital Signs Vital Signs: Vital Signs - 24 hr 12/16/23 08:13 12/16/23 08:41 12/16/23 08:00 Temperature Pulse Rate 70 114 H Respiratory Rate Blood Pressure Pulse Oximetry 93 Oxygen
[2023-12-17 06:22] LABS: Hematocrit 44.1 % (42.0-52.0); Hemoglobin 14.6 g/dL (14.0-18.0); Mean Corpuscular HGB Conc 33.1 g/dl (32-36); Mean Corpuscular Hemoglobin 31.9 pg (26-34); Mean Corpuscular Volume 96.3 fl (80-100); Mean Platelet Volume 10.7 fl (7.4-10.4); Platelet Count Result 210 k/mm3 (150-375); Red Blood Count 4.58 M/mm3 (4.6-6.20); Red Cell Distribution Width 12.7 % (11.5-14.5); White Blood Count 6.8 K/mm3 (4.5-10.0)
[2023-12-17 06:34] LABS: Alanine Aminotransferase 24 U/L (6-50); Albumin Level 4.1 g/dL (3.5-5.1); Alkaline Phosphatase 71 U/L (38-126); Anion Gap 7 mmol/L (8-16); Aspartate Amino Transferase 26 U/L (17-59); Bilirubin,Total 0.5 mg/dL (0.2-1.3); Blood Urea Nitrogen 12 mg/dL (9-20); Calcium 9.3 mg/dL (8.4-10.2); Carbon Dioxide 27 mmol/L (22-30); Chloride 104 mmol/L (98-107); Estimated CRCL calculation 116 ml/min; Estimated Glomerular Filt Rate > 60; Glucose 87 mg/dL (65-110); Potassium 3.7 mmol/L (3.4-5.0); Sodium 138 mmol/L (137-145)
[2023-12-17] MEDS: METOCLOPRAMIDE HCL 10 MG TABLET PO (09:42)
[2023-12-17] MEDS: buPROPion HCL 75 MG TABLET 150 MG PO (09:42)
[2023-12-17] MEDS: BACLOFEN 10 MG TABLET PO ×3 (09:42→16:47)
[2023-12-17] MEDS: AMOXICILLIN/CLAVULANATE K 875-125 MG TAB 1 TABLET PO ×2 (09:42→21:57)
[2023-12-17] MEDS: busPIRone HCL 5 MG TABLET PO ×3 (09:42→16:47)
[2023-12-17] MEDS: AZITHROMYCIN 250 MG TABLET 500 MG PO (09:42)
[2023-12-17] MEDS: GABAPENTIN 300 MG CAPSULE 600 MG PO ×3 (09:43→16:47)
[2023-12-17] MEDS: diazePAM (*CRX) 5 MG TABLET PO ×2 (09:43→16:47)
[2023-12-17] MEDS: CHOLECALCIFEROL 1,000 UNITS TABLET 5000 UNITS PO (09:43)
[2023-12-17] MEDS: FOLIC ACID 1 MG TABLET PO (09:43)
[2023-12-17] MEDS: FERROUS SULFATE 325 MG TABLET DR PO (09:43)
[2023-12-17] MEDS: FUROSEMIDE 40 MG TABLET PO ×2 (09:43→16:47)
[2023-12-17] MEDS: CALCIUM CARBONATE (TUMS) 500 MG (200 MG ELEMENTAL) PO ×2 (09:43→16:46)
[2023-12-17] MEDS: hydrOXYzine HCL 25 MG TABLET PO ×3 (09:44→16:47)
[2023-12-17] MEDS: rifAXIMin 550 MG TABLET PO ×2 (09:44→16:47)
[2023-12-17] MEDS: NICOTINE (*PBKC) 21 MG PATCH 1 PATCH TRANSDERM (09:44)
[2023-12-17] MEDS: PROPRANOLOL HCL 10 MG TABLET PO ×2 (09:44→16:47)
[2023-12-17] MEDS: POTASSIUM CHLORIDE 20 MEQ ER TABLET PO (09:44)
[2023-12-17] MEDS: QUEtiapine FUMARATE 12.5 MG TABLET PO ×3 (09:44→16:47)
[2023-12-17] MEDS: SPIRONOLACTONE 50 MG TABLET 100 MG PO (09:45)
[2023-12-17] MEDS: THIAMINE HCL 100 MG TABLET PO (09:45)
[2023-12-17] MEDS: SERTRALINE HCL 50 MG TABLET PO (09:45)
[2023-12-17] MEDS: HYDROcodone/acetaminophen (*CRX) 7.5-325 MG TABLET 1 TAB PO ×3 (09:49→22:04)
[2023-12-17] MEDS: SUCRALFATE SUSP 100 MG/ML 10 ML UDC 1000 MG PO ×2 (12:09→16:45)
--- NOTE | 2023-12-17 16:19 | PM.IMPN ---
Progress Note: A&P Assessment and Plan (1) Acute hypoxic respiratory failure: Code(s): J96.01 - Acute respiratory failure with hypoxia Status: Acute Assessment and Plan: On supplemental oxygen by nasal cannula Supportive care 12/15- In ED O2 stats 80s w/o O2, Currently on 2L via NC-O2 stats >90s% Encourage deep breathing efforts- consider IS Wean O2 via NC as tolerated Continue to monitor 12/16- On room air, no acute distress noted. normal respiratory effort 12/17- Patient has remained on room air, normal respiratory effort. Expressed pain is coming from RUQ when he takes deep breaths. RUQ US noted cirrhosis- no causative factor for described pain. Incentive spirometer ordered to help encourage deep breathing. (2) Multifocal pneumonia: Code(s): J18.9 - Pneumonia, unspecified organism Status: Acute Assessment and Plan: Patient started on Rocephin and Zithromax await cultures 12/15: Chest Xray noted Small right pleural effusion and mild pulmonary edema CTA Chest- No evidence of pulmonary embolus IV abx continued Blood cultures pending 12/16- LCTAB, not requiring supplemental O2 at time of assessment De-escalted IV abx to PO- Azithromycin and Augmentin Educated patient on getting up to chair, deep breathing exercises. 12/17- Tolerating PO Abx well. Lungs are clear to auscultation. Does not require O2. Normal respiratory effort. Patient educated to sit up out of bed and this will add in deep breathing (3) Abdominal ascites: Qualifiers: Ascites type: due to alcoholic cirrhosis Qualified Code(s): K70.31 - Alcoholic cirrhosis of liver with ascites Code(s): R18.8 - Other ascites Status: Acute Assessment and Plan: Consider paracentesis if significant discomfort Continue to monitor 12/15- Abd pain right sided CT ABD- note here is no free intraperitoneal fluid. Cirrhosis of the liver with portal venous hypertension. 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 TECHNIQUE: Computed tomography (CT) of the abdomen and pelvis was performed with 100 mL Omnipaque 350 intravenous contrast. Automated exposure control and iterative reconstruction technique were employed. The dose-length product was 1048.60 mGy-cm. COMPARISON: CT abdomen and pelvis 05/15/2021 FINDINGS: The visualized portions of the lung bases demonstrate mild atelectasis. No pleural effusion. The heart size is normal. No pericardial effusion. There is bilateral gynecomastia. The liver demonstrates surface nodularity, consistent with cirrhosis. The gallbladder, spleen, pancreas, adrenal glands, and kidneys are normal. There are no dilated loops of bowel. The appendix is normal. There are paraesophageal varices. Paraumbilical varices are noted. There are bilateral inguinal hernias containing fat. There are no pathologically enlarged lymph nodes. There is no free intraperitoneal fluid. There is an old fracture of left femoral neck with nonunion. IMPRESSION: 1. Cirrhosis of the liver with portal venous hypertension. 2. 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 GI reviewed scan and assessed patient and note CT scan did not show any acute abnormalities. From GI standpoint there is not any acute problems with his liver and in agreement with his current management in terms of medication for his liver disease and portal hypertension. Xray ordered per GI and noted no acute rib fracture, Chronic cavitation and scarring in right lung upper lobe. There is an old healed
[2023-12-17] MEDS: LACTULOSE 20 GM/30 ML UDC PO (16:45)
[2023-12-17] MEDS: MAGNESIUM OXIDE 400 MG TABLET PO (21:57)
[2023-12-18] VITALS: PULSE 82
[2023-12-18] MEDS: HYDROcodone/acetaminophen (*CRX) 7.5-325 MG TABLET 1 TAB PO (02:24)
[2023-12-18 04:00] VITALS: PULSE 69
[2023-12-18] MEDS: SUCRALFATE SUSP 100 MG/ML 10 ML UDC 1000 MG PO (05:51)
[2023-12-18 06:00] VITALS: BP 105/70; PULSE 66; RESP 18; TEMP 36.6; O2SAT 96
[2023-12-18 06:15] LABS: Hematocrit 44.5 % (42.0-52.0); Hemoglobin 14.9 g/dL (14.0-18.0); Mean Corpuscular HGB Conc 33.5 g/dl (32-36); Mean Corpuscular Hemoglobin 31.9 pg (26-34); Mean Corpuscular Volume 95.3 fl (80-100); Platelet Count Result 220 k/mm3 (150-375); Red Blood Count 4.67 M/mm3 (4.6-6.20); Red Cell Distribution Width 12.6 % (11.5-14.5); White Blood Count 6.4 K/mm3 (4.5-10.0)
[2023-12-18 06:27] LABS: Alanine Aminotransferase 23 U/L (6-50); Albumin Level 3.9 g/dL (3.5-5.1); Alkaline Phosphatase 75 U/L (38-126); Anion Gap 6 mmol/L (8-16); Aspartate Amino Transferase 27 U/L (17-59); Bilirubin,Total 0.4 mg/dL (0.2-1.3); Blood Urea Nitrogen 12 mg/dL (9-20); Calcium 9.4 mg/dL (8.4-10.2); Carbon Dioxide 28 mmol/L (22-30); Chloride 102 mmol/L (98-107); Estimated CRCL calculation 131 ml/min; Estimated Glomerular Filt Rate > 60; Glucose 89 mg/dL (65-110); Lipase 127 U/L (23-300); Magnesium 1.8 mg/dL (1.6-2.3); Potassium 3.7 mmol/L (3.4-5.0); Sodium 136 mmol/L (137-145)
[2023-12-18 08:00] VITALS: PULSE 66
--- NOTE | 2023-12-18 08:51 | PM.DS ---
DS: Admitting Diagnosis Discharge Date 12/18/23 Admitting Diagnosis shortness of breath/ abdominal pain DS: Discharge Diagnosis Discharge Diagnosis (1) Acute hypoxic respiratory failure: Code(s): J96.01 - Acute respiratory failure with hypoxia Status: Acute Assessment and Plan: On supplemental oxygen by nasal cannula Supportive care 12/15- In ED O2 stats 80s w/o O2, Currently on 2L via NC-O2 stats >90s% Encourage deep breathing efforts- consider IS Wean O2 via NC as tolerated Continue to monitor 12/16- On room air, no acute distress noted. normal respiratory effort 12/17- Patient has remained on room air, normal respiratory effort. Expressed pain is coming from RUQ when he takes deep breaths. RUQ US noted cirrhosis- no causative factor for described pain. Incentive spirometer ordered to help encourage deep breathing. 12/18- Patient is on room air and described no respiratory distress or dificulty breathing. Stated no right sided abdominal pain at this time (2) Multifocal pneumonia: Code(s): J18.9 - Pneumonia, unspecified organism Status: Acute Assessment and Plan: Patient started on Rocephin and Zithromax await cultures 12/15: Chest Xray noted Small right pleural effusion and mild pulmonary edema CTA Chest- No evidence of pulmonary embolus IV abx continued Blood cultures pending 12/16- LCTAB, not requiring supplemental O2 at time of assessment De-escalted IV abx to PO- Azithromycin and Augmentin Educated patient on getting up to chair, deep breathing exercises. 12/17- Tolerating PO Abx well. Lungs are clear to auscultation. Does not require O2. Normal respiratory effort. Patient educated to sit up out of bed and this will add in deep breathing 12/18 - Patient expressed no shortness of breath or difficulty breathing. He it tolerating PO abx well and will complete on discharge today (3) Abdominal ascites: Qualifiers: Ascites type: due to alcoholic cirrhosis Qualified Code(s): K70.31 - Alcoholic cirrhosis of liver with ascites Code(s): R18.8 - Other ascites Status: Acute Assessment and Plan: Consider paracentesis if significant discomfort Continue to monitor 12/15- Abd pain right sided CT ABD- note here is no free intraperitoneal fluid. Cirrhosis of the liver with portal venous hypertension. 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 Paracentesis canceled due to no ascitic fluided noted Hx of cirrhosis- alcohol abuse- denies drinking now- [employer] at [facility]- Rifaximin/ lactulose for hepatic encephalopathy for ammonia levels Portal HTN- Propranolol continued GI consulted and appreciate recommendations of care 12/16- EXAMINATION: CT abdomen pelvis w con DATE: 12/14/2023 22:58 INDICATION: Right abdominal pain. TECHNIQUE: Computed tomography (CT) of the abdomen and pelvis was performed with 100 mL Omnipaque 350 intravenous contrast. Automated exposure control and iterative reconstruction technique were employed. The dose-length product was 1048.60 mGy-cm. COMPARISON: CT abdomen and pelvis 05/15/2021 FINDINGS: The visualized portions of the lung bases demonstrate mild atelectasis. No pleural effusion. The heart size is normal. No pericardial effusion. There is bilateral gynecomastia. The liver demonstrates surface nodularity, consistent with cirrhosis. The gallbladder, spleen, pancreas, adrenal glands, and kidneys are normal. There are no dilated loops of bowel. The appendix is normal. There are paraesophageal varices. Paraumbilical varices are noted. There are bilateral inguinal hernias containing fat. There are no pathologically enlarged lymph nodes. There is no free intraperitoneal fluid. There is an old fracture of left femoral neck with nonunion. IMPRESSION: 1. Cirrhosis of the liver with portal venous hypertension. 2. 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 GI revi
[2023-12-18] MEDS: METOCLOPRAMIDE HCL 10 MG TABLET PO (09:39)
[2023-12-18] MEDS: CALCIUM CARBONATE (TUMS) 500 MG (200 MG ELEMENTAL) PO ×2 (09:39→14:31)
[2023-12-18] MEDS: AMOXICILLIN/CLAVULANATE K 875-125 MG TAB 1 TABLET PO (09:40)
[2023-12-18] MEDS: QUEtiapine FUMARATE 12.5 MG TABLET PO ×2 (09:40→14:32)
[2023-12-18] MEDS: rifAXIMin 550 MG TABLET PO (09:40)
[2023-12-18] MEDS: AZITHROMYCIN 250 MG TABLET 500 MG PO (09:40)
[2023-12-18] MEDS: BACLOFEN 10 MG TABLET PO ×2 (09:40→14:32)
[2023-12-18] MEDS: diazePAM (*CRX) 5 MG TABLET PO (09:40)
[2023-12-18] MEDS: FUROSEMIDE 40 MG TABLET PO (09:40)
[2023-12-18] MEDS: PROPRANOLOL HCL 10 MG TABLET PO (09:40)
[2023-12-18] MEDS: CHOLECALCIFEROL 1,000 UNITS TABLET 5000 UNITS PO (09:41)
[2023-12-18] MEDS: buPROPion HCL 75 MG TABLET 150 MG PO (09:41)
[2023-12-18] MEDS: busPIRone HCL 5 MG TABLET PO ×2 (09:41→14:32)
[2023-12-18] MEDS: SERTRALINE HCL 50 MG TABLET PO (09:41)
[2023-12-18] MEDS: SPIRONOLACTONE 50 MG TABLET 100 MG PO (09:41)
[2023-12-18] MEDS: GABAPENTIN 300 MG CAPSULE 600 MG PO ×2 (09:41→14:32)
[2023-12-18] MEDS: POTASSIUM CHLORIDE 20 MEQ ER TABLET PO (09:41)
[2023-12-18] MEDS: THIAMINE HCL 100 MG TABLET PO (09:42)
[2023-12-18] MEDS: FOLIC ACID 1 MG TABLET PO (09:42)
[2023-12-18] MEDS: FERROUS SULFATE 325 MG TABLET DR PO (09:42)
[2023-12-18] MEDS: hydrOXYzine HCL 25 MG TABLET PO (09:42)
[2023-12-18 13:51] LABS: SARS-CoV-2 RNA PCR Negative (Negative)
[2023-12-18 14:00] VITALS: BP 109/70; PULSE 76; RESP 18; TEMP 36.2; O2SAT 98
== END 2023-12-18 15:00 | DRG 193 ==
LOC: ANHED 12-15 03:00 → ANH3MEDSUR 12-15 04:26
PROVIDERS: Internal Medicine Gastroenterology; Physician Assistant; Admitting Provider Internal Medicine; Emergency Provider Physician Assistant; PCP Internal Medicine Gastroenterology; Visit Provider Nurse Practitioner Family
DX: J18.9 Pneumonia, unspecified organism (principal); J96.01 Acute respiratory failure with hypoxia; I85.10 Secondary esophageal varices without bleeding; S72.002K Fracture of unspecified part of neck of left femur, subsequent encounter for closed fracture with nonunion; K76.6 Portal hypertension; K70.30 Alcoholic cirrhosis of liver without ascites; K72.90 Hepatic failure, unspecified without coma; K22.70 Barrett's esophagus without dysplasia; J98.4 Other disorders of lung; F10.21 Alcohol dependence, in remission; F32.A Depression, unspecified; F41.9 Anxiety disorder, unspecified; F17.210 Nicotine dependence, cigarettes, uncomplicated; Z20.822 Contact with and (suspected) exposure to COVID-19; Z86.010 Personal history of colon polyps; Z11.52 Encounter for screening for COVID-19; Z99.3 Dependence on wheelchair
CPT/HCPCS: 36415; 71046; 71100; 71275; 74177; 76705; 80053; 80307; 81003; 82140; 82248; 82948; 83690; 83735; 83880; 84145; 84484; 85025; 85027; 85380; 85610; 85730; 86140; 87040; 87635; 87637; 93005; 96365; 96367; 96376; 99285; A9270; G0378; J0456; J0696; Q9967

== ENCOUNTER 2023-12-31 17:03 | Inpatient (IN) | payer MEDICARE, MEDICAID, SELFPAY ==
[2023-12-31] VITALS (14 sets, daily range): BP systolic 101–118; BP diastolic 60–82; PULSE 63–75; RESP 12–18; TEMP 36.6; O2SAT 93–100
--- NOTE | ~2023-12-31 | CT_ITS ---
EXAMINATION: CT brain wo con DATE: 12/31/2023 19:11 INDICATION: Weakness. TECHNIQUE: Computed tomography (CT) of the head was performed without intravenous contrast. The mA wa s adjusted according to patient size. Iterative reconstruction technique was employed. The dose-lengt h product was 605.33 mGy-cm. COMPARISON: Head CT 12/17/2022 FINDINGS: There is no intracranial hemorrhage, acute infarction, or abnormal intracranial mass lesion . The ventricles are normal in size. The orbits are normal. There is mild mucosal thickening in the p aranasal sinuses. The mastoid air cells are normal. IMPRESSION: 1. Normal brain. Reviewed, dictated and finalized at location E. NESS INFORMATION CONSULTANT IMPRESSION: 1. Normal brain.
--- NOTE | ~2023-12-31 | US_ITS ---
EXAMINATION: US venous doppler [facility] DATE: 12/31/2023 19:02 INDICATION: Lower limb edema. TECHNIQUE: Grayscale ultrasound images without and with compression and Doppler ultrasound images of the bilateral lower extremity veins were obtained. COMPARISON: None. FINDINGS: The visualized portions of right common femoral vein, profunda (deep) femoral vein, femoral vein, pop liteal vein, peroneal veins, posterior tibial veins, and greater saphenous vein outflow are patent. The visualized portions of left common femoral vein, profunda femoral vein, femoral vein, popliteal v ein, peroneal veins, posterior tibial veins, and greater saphenous vein outflow are patent. IMPRESSION: 1. No deep venous thrombosis. Reviewed, dictated and finalized at location E. MACHINE CRANE OPERATOR
--- NOTE | ~2023-12-31 | CT_ITS ---
EXAMINATION: CTA chest PE abdomen pel DATE: 12/31/2023 19:28 INDICATION: Chest pain. Shortness of breath. Abdominal pain. TECHNIQUE: Computed tomography angiography (CTA) of the chest was performed with 100 mL Omnipaque-350 intravenous contrast timed to evaluate the pulmonary arteries. Coronal maximum intensity projection 3D-reconstructions were created by the technologist. Computed tomography (CT) of the abdomen and pelv is was performed with intravenous contrast. Automated exposure control and iterative reconstruction t echnique were employed. The dose-length product was 1469.43 mGy-cm. COMPARISON: Chest CT 12/15/2023 FINDINGS: CTA chest: There is a pneumatocele and mild scarring in right lung upper lobe. There is mild atelecta sis bilaterally. No pleural effusion. The heart size is normal. No pericardial effusion. There is no pulmonary embolus. There is bilateral gynecomastia. There is mild thoracic spondylosis. There is mild chronic anterior wedging of multiple vertebral bodies. CT abdomen and pelvis: Paraesophageal varices are noted. The liver demonstrates surface nodularity, c onsistent with cirrhosis. The gallbladder, spleen, pancreas, adrenal glands, and kidneys are normal. There is a periumbilical portacaval shunt. There is prominent fat in the inguinal canals that may be hernias. There are no dilated loops of bowel. The appendix is normal. There are no pathologically enl arged lymph nodes. There is no free intraperitoneal fluid. There is an old fracture of left femoral n chinedu with nonunion. IMPRESSION: 1. Cirrhosis of the liver with portal venous hypertension. 2. 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 3. No pulmonary embolus. Reviewed, dictated and finalized at location E. ATOR OPERATOR FREIGHT
--- NOTE | ~2023-12-31 | XR_ITS ---
EXAMINATION: XR hip RT 2V w AP pelvis DATE: 12/31/2023 19:17 INDICATION: Right hip pain. TECHNIQUE: An anteroposterior view of the pelvis and 2 views of right hip were obtained. COMPARISON: Pelvis radiograph 12/16/2022 FINDINGS: There is an old fracture of left femoral neck with nonunion. The distal fracture fragment d emonstrates 2.6 cm lateral displacement and 5.5 cm shortening. There is mild osteoarthritis of right hip. IMPRESSION: 1. Mild right hip osteoarthritis. 2. 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 Reviewed, dictated and finalized at location E. NE SPECIALIST
--- NOTE | ~2023-12-31 | XR_ITS ---
EXAMINATION: XR chest 2V DATE: 12/31/2023 19:17 INDICATION: Recent pneumonia. TECHNIQUE: Frontal and lateral views of the chest were obtained. COMPARISON: Chest 2 views 12/15/23, chest CT 12/15/2023 FINDINGS: There is chronic cavitation and scarring in right lung upper lobe. There is mild atelectasi s at left lung base. No pleural effusion or pneumothorax. The heart size is normal. There is an old h ealed right rib fracture. IMPRESSION: 1. Chronic scarring and cavitation in right lung upper lobe. 2. Mild atelectasis at left lung base. Reviewed, dictated and finalized at location E. NEL MACHINE OPERATOR
--- NOTE | 2023-12-31 17:49 | ED.ABDPAIN ---
HPI - Abdominal Pain General Chief Complaint: Abdominal Pain Stated Complaint: R sided abd pain, fall yest Time Seen by Provider: 12/31/23 17:10 Source: patient Mode of arrival: EMS Limitations: no limitations History of Present Illness HPI narrative: This is a 38 year old male that presents to the ER for abdominal pain and lethargy. Worsening over the last 5 days. Reports epigastric pain radiating into the lower abdomen. Also reports chest pain and shortness of breath. Reports lethargy and difficulty staying awake. Reports a cough and recent pneumonia. Reports he sustained a fall yesterday and has been having right hip pain. Denies fevers, diarrhea, or dysuria. Related Data Home Medications Medication Instructions Recorded Confirmed thiamine HCl (vitamin B1) 100 mg 100 mg PO DAILY 04/20/21 12/15/23 tablet melatonin 3 mg tablet 3 mg PO HS PRN Insomnia 09/15/21 12/15/23 ferrous sulfate 325 mg (65 mg 325 mg PO DAILY 11/12/21 12/15/23 iron) tablet rifaximin 550 mg tablet (Xifaxan) 550 mg PO BID 11/12/21 12/15/23 baclofen 10 mg tablet 10 mg PO TID 01/22/22 12/15/23 acetaminophen 500 mg tablet 1,000 mg PO TID PRN Pain 06/24/22 12/15/23 (Acetaminophen Extra Strength) calcium carbonate 500 mg calcium 500 mg PO TID 06/24/22 12/15/23 (1,250 mg) chewable tablet cholecalciferol (vitamin D3) 125 125 mcg PO DAILY 06/24/22 12/15/23 mcg (5,000 unit) tablet gabapentin 300 mg tablet 600 mg PO TID 06/24/22 12/15/23 potassium chloride 20 mEq 20 meq PO DAILY 06/24/22 12/15/23 tablet,extended release buspirone 5 mg tablet 5 mg PO TID 12/14/22 12/15/23 furosemide 20 mg tablet (Lasix) 40 mg PO BID 12/14/22 12/15/23 hydroxyzine HCl 25 mg tablet 25 mg PO TID 12/14/22 12/15/23 ondansetron HCl 4 mg tablet 4 mg PO Q8H PRN Nausea And Vomiting 12/14/22 12/15/23 spironolactone 50 mg tablet 100 mg PO DAILY 12/14/22 12/15/23 (Aldactone) Reglan 10 mg PO DAILY 12/15/23 12/15/23 bupropion HCl 75 mg tablet 150 mg PO DAILY 12/15/23 12/15/23 diazepam 5 mg tablet 5 mg PO BID 12/15/23 12/15/23 diclofenac sodium 1 % topical gel 2 g topical QID PRN Pain 12/15/23 12/15/23 hydrocodone 7.5 mg-acetaminophen 1 tablet PO Q4H PRN Pain 12/15/23 12/15/23 325 mg tablet lidocaine 5 % topical patch 1 patch transdermal DAILY 12/15/23 12/15/23 (Lidoderm) magnesium oxide 400 mg PO HS 12/15/23 12/15/23 propranolol 10 mg tablet 10 mg PO BID 12/15/23 12/15/23 quetiapine 25 mg tablet 12.5 mg PO TID 12/15/23 12/15/23 sertraline 50 mg tablet 50 mg PO DAILY 12/15/23 12/15/23 sucralfate 100 mg/mL oral 10 ml PO TID 12/15/23 12/15/23 suspension trazodone 50 mg tablet 75 mg PO HS PRN Insomnia 12/15/23 12/15/23 Allergies Allergy/AdvReac Type Severity Reaction Status Date / Time peanut Allergy Severe Anaphylaxis Verified 12/15/23 05:24 mushroom AdvReac Unknown Verified 12/15/23 05:24 Review of Systems Review of Systems: CONSTITUTIONAL: Denies fever CARDIOVASCULAR: Reports chest pain, and edema. RESPIRATORY: Reports cough and dyspnea. GASTROINTESTINAL: Reports abdominal pain, nausea. Denies vomiting, or diarrhea. GENITOURINARY: Denies dysuria All systems reviewed & are unremarkable except as noted in HPI and below PMFSH Past Medical History Medical History Alcohol abuse Alcoholic hepatitis Holt's esophagus with esophagitis Chronic anemia Cirrhosis Depression with anxiety Esophageal varices Fracture of left hip GI bleed Secondary to bleeding varices. Tobacco abuse Surgical History Surgical History History of colonoscopy with polypectomy (05/25/22) Benign colon polyp, internal hemorrhoids. History of esophagogastroduodenoscopy (05/22/22) Nonbleeding esophageal varices, Ohlt esophagus without dysplasia, gastritis. Family History Family History Mother Liver disease Cirrhosis Grand
[2023-12-31 18:12] LABS: Basophils Absolute Auto 0.1 K/mm3 (0.0-0.1); Basophils Percent Auto 0.7 % (0.2-1.2); Eosinophils Absolute Auto 0.2 K/mm3 (0-0.3); Eosinophils Percent Auto 3.1 % (0-4.4); Hematocrit 43.3 % (42.0-52.0); Hemoglobin 14.7 g/dL (14.0-18.0); Immature Granulocyte Absolute 0.01 K/mm3 (0.00-0.031); Immature Granulocyte Percent A 0.1 % (0-0.5); Lymphocytes Absolute Auto 1.77 K/mm3 (0.9-3.2); Lymphocytes Percent Auto 23.5 % (18.3-44.2); Mean Corpuscular HGB Conc 33.9 g/dl (32-36); Mean Corpuscular Hemoglobin 31.7 pg (26-34); Mean Corpuscular Volume 93.3 fl (80-100); Mean Platelet Volume 10.3 fl (7.4-10.4); Monocytes Percent Auto 13.3 % (2.6-8.5); Neutrophils Absolute Auto 4.5 K/mm3 (1.3-6.7); Neutrophils Percent Auto 59.3 % (45.5-73.1); Platelet Count Result 211 k/mm3 (150-375); Red Blood Count 4.64 M/mm3 (4.6-6.20); Red Cell Distribution Width 13.2 % (11.5-14.5); White Blood Count 7.5 K/mm3 (4.5-10.0)
[2023-12-31 18:15] LABS: Alveolar/Arterial O2 Gradient 27.3 mmHg; Base Excess ABG 1.9 mEq/l (+/-2.0); Carboxyhemoglobin 3.1 % THb (0-2.0); Fractional Inspired Oxygen 21 %; HCO3 ABG 27.3 mEq/l (22.0-26.0); Oxygen Content ABG 18.8 %vol (16.0-22.0); Oxygen Saturation ABG 93.5 % (95.0-100.0); Oxyhemoglobin 90.9 % THb (90.0-100.0); PCO2 ABG 45.3 mmHg (35.0-45.0); PO2 ABG 68.2 mmHg (80.0-100.0); PO2 FiO2 Ratio Arterial Blood 3.25 %; Total Hemoglobin 14.7 g/dL (12.0-18.0); pH ABG 7.398 (7.350-7.450)
[2023-12-31 18:16] LABS: Modified Allen's Test Pass; Site Drawn RIGHT RADIAL
[2023-12-31 18:21] LABS: Lactic Acid Reflex 0.9 mmol/L (0.7-2.0)
[2023-12-31 18:22] LABS: Alanine Aminotransferase 45 U/L (6-50); Albumin Level 4.5 g/dL (3.5-5.1); Alkaline Phosphatase 80 U/L (38-126); Anion Gap 6 mmol/L (8-16); Aspartate Amino Transferase 43 U/L (17-59); Bilirubin,Total 0.5 mg/dL (0.2-1.3); Blood Urea Nitrogen 13 mg/dL (9-20); Calcium 9.6 mg/dL (8.4-10.2); Carbon Dioxide 31 mmol/L (22-30); Chloride 101 mmol/L (98-107); Estimated CRCL calculation 124 ml/min; Estimated Glomerular Filt Rate > 60; Glucose 95 mg/dL (65-110); Lipase 127 U/L (23-300); Potassium 3.8 mmol/L (3.4-5.0); Prothrombin Time 13.4 Seconds (11.1-14.7); Sodium 138 mmol/L (137-145)
[2023-12-31 18:23] LABS: Partial Thromboplastin Time 31.9 SECONDS (22.3-36.8)
[2023-12-31 18:25] LABS: CRP 0.6 mg/dL (<1.0)
[2023-12-31 18:29] LABS: Ammonia 23 umol/L (9-30)
[2023-12-31 18:30] LABS: NT Pro B Type Natriuretic Pept < 20 pg/mL (19.9-100)
[2023-12-31 18:37] LABS: Troponin I < 0.012 ng/mL (0.000-0.034)
[2023-12-31] MEDS: PANTOPRAZOLE SODIUM IV 40 MG VIAL IV PUSH (18:56)
[2023-12-31 19:03] LABS: Influenza A QL RT-PCR Negative (Negative); Influenza B QL RT-PCR Negative (Negative); RSV RNA, RT-PCR Negative (Negative); SARS-CoV-2 RNA PCR Negative (Negative)
[2023-12-31 21:02] LABS: Appearance Urine Clear (Clear); Bilirubin Urine Negative (Negative); Blood Urine Negative (Negative); Color Urine Yellow (Yellow); Glucose Urine UA Negative (Negative); Ketones Urine Negative (Negative); Leukocyte Esterase Ur Negative LEU/UL (Negative); Nitrate Urine Negative (Negative); Protein Urine Negative (Negative); Urobilinogen Urine 0.2 mg/dL (<2.0)
[2023-12-31 21:04] LABS: Specific Grav Ur 1.025 (1.001-1.035)
[2023-12-31 21:05] LABS: Add Urine Microscopic? NO
[2023-12-31 21:35] LABS: Ethanol < 10 mg/dL (<10)
--- NOTE | 2023-12-31 21:45 | PM.IMHP ---
H&P: HPI History of Present Illness Date/Time: 12/31/23 21:45 Chief Complaint: AMS Narrative: THIS IS A 38-YEAR-OLD MALE WITH PAST MEDICAL HISTORY SIGNIFICANT FOR ALCOHOL DEPENDENCE, HEPATIC CIRRHOSIS, NONUNION LEFT HIP FRACTURE, NONAMBULATORY, NONWEIGHTBEARING, PATIENT USES WHEELCHAIR TRANSFERS ON HIS ON, HAD A FALL WHILE TRANSFERRING FROM WHEELCHAIR FEW DAYS AGO HOWEVER TODAY HE WAS BROUGHT TO THE EMERGENCY ROOM FROM [facility] WHERE HE RESIDES AT DUE TO ALTERED MENTAL STATUS. PATIENT HAS BEEN VERY LETHARGIC ACCORDING TO MEDICAL RECORDS. AT THE TIME OF MY VISIT PATIENT WAS ABLE TO ANSWER QUESTIONS APPROPRIATELY. PRELIMINARY WORKUP HAS BEEN ESSENTIALLY NONREVEALING. PATIENT HAS BEEN PLACED IN OBSERVATION. EXAMINATION: CT brain wo con DATE: 12/31/2023 19:11 INDICATION: Weakness. TECHNIQUE: Computed tomography (CT) of the head was performed without intravenous contrast. The mA was adjusted according to patient size. Iterative reconstruction technique was employed. The dose-length product was 605.33 mGy-cm. COMPARISON: Head CT 12/17/2022 FINDINGS: There is no intracranial hemorrhage, acute infarction, or abnormal intracranial mass lesion. The ventricles are normal in size. The orbits are normal. There is mild mucosal thickening in the paranasal sinuses. The mastoid air cells are normal. IMPRESSION: 1. Normal brain. EXAMINATION: CTA chest PE abdomen pel DATE: 12/31/2023 19:28 INDICATION: Chest pain. Shortness of breath. Abdominal pain. TECHNIQUE: Computed tomography angiography (CTA) of the chest was performed with 100 mL Omnipaque-350 intravenous contrast timed to evaluate the pulmonary arteries. Coronal maximum intensity projection 3D-reconstructions were created by the technologist. Computed tomography (CT) of the abdomen and pelvis was performed with intravenous contrast. Automated exposure control and iterative reconstruction technique were employed. The dose-length product was 1469.43 mGy-cm. COMPARISON: Chest CT 12/15/2023 FINDINGS: CTA chest: There is a pneumatocele and mild scarring in right lung upper lobe. There is mild atelectasis bilaterally. No pleural effusion. The heart size is normal. No pericardial effusion. There is no pulmonary embolus. There is bilateral gynecomastia. There is mild thoracic spondylosis. There is mild chronic anterior wedging of multiple vertebral bodies. CT abdomen and pelvis: Paraesophageal varices are noted. The liver demonstrates surface nodularity, consistent with cirrhosis. The gallbladder, spleen, pancreas, adrenal glands, and kidneys are normal. There is a periumbilical portacaval shunt. There is prominent fat in the inguinal canals that may be hernias. There are no dilated loops of bowel. The appendix is normal. There are no pathologically enlarged lymph nodes. There is no free intraperitoneal fluid. There is an old fracture of left femoral neck with nonunion. IMPRESSION: 1. Cirrhosis of the liver with portal venous hypertension. 2. 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 3. No pulmonary embolus. Review of Systems Review of Systems: FALL, ALTERED MENTAL STATUS [facility] Past Medical History Medical History Alcohol abuse Alcoholic hepatitis Holt's esophagus with esophagitis Chronic anemia Cirrhosis Depression with anxiety Esophageal varices Fracture of left hip GI bleed Secondary to bleeding varices. Tobacco abuse Surgical History Surgical History History of colonoscopy with polypectomy (05/25/22) Benign colon polyp, internal hemorrhoids. History of esophagogastroduodenoscopy (05/22/22) Nonbleeding esophageal varices, Holt esophagus without dysplasia, gastritis. Family History Family History Mother Liver disease Cirrhosis Grandparent Heart failure Heart attack Social Histor
[2023-12-31 21:51] LABS: Amphetamine Screen Urine Negative (Negative); Barbiturate Screen Urine Negative (Negative); Benzodiazepines Screen Urine Positive (Negative); Cannabinoid Screen Urine Positive (Negative); Cocaine Screen Urine Negative (Negative); Methadone Screen Urine Negative (Negative); Opiate Screen Urine Positive (Negative); Phencyclidine Screen Urine Negative (Negative)
--- NOTE | 2023-12-31 23:24 | ECG_ITS ---
Measurements Intervals [place] Rate: 63 P: 28 NE: 141 QRS: 7 QRSD: 98 T: 52 QT: 396 QTc: 406 Interpretive Statements SINUS RHYTHM NORMAL ECG COMPARED TO ECG 12/14/2023 18:30:32 NO SIGNIFICANT CHANGES Electronically Signed On 01-01-2024 7:31:38 ANESTHESIOLOGY MEDICAL DOCTOR by Carl Fitzgerald D.O.
--- NOTE | 2023-12-31 23:55 | ADMGEN ---
This patient, Lukas Diaz, was admitted to Medical Room 345-01. Patient/family oriented to hospital policies and general routines including ID bracelet, bed and alarms, visiting hours, pain management, procedures, bathroom and other care routines, personal items, smoking policy, room service/diet, and visiting hours. Information on how to activate the Rapid Response Team has been discussed. Patient/Family are encouraged to report perceived risks to care and to ask questions if they do not understand what they are told or what they should do.
[2024-01-01] VITALS (8 sets, daily range): BP systolic 111–122; BP diastolic 68–80; PULSE 65–80; RESP 14–18; TEMP 36.2–36.6; O2SAT 95–97; BMI 32.8
[2024-01-01] MEDS: PROPRANOLOL HCL 10 MG TABLET PO (08:03)
[2024-01-01] MEDS: SERTRALINE HCL 50 MG TABLET PO (08:03)
[2024-01-01] MEDS: FERROUS SULFATE 325 MG TABLET DR BY MOUTH (08:03)
[2024-01-01] MEDS: GABAPENTIN 300 MG CAPSULE 600 MG PO (08:03)
[2024-01-01] MEDS: THIAMINE HCL 100 MG TABLET PO (08:03)
[2024-01-01] MEDS: MAGNESIUM OXIDE 400 MG TABLET PO (08:03)
[2024-01-01] MEDS: FOLIC ACID 1 MG TABLET PO (08:03)
[2024-01-01] MEDS: SPIRONOLACTONE 50 MG TABLET 100 MG PO (08:04)
[2024-01-01] MEDS: CALCIUM CARBONATE (TUMS) 500 MG (200 MG ELEMENTAL) PO ×2 (08:04→13:26)
[2024-01-01] MEDS: busPIRone HCL 5 MG TABLET PO (08:04)
[2024-01-01] MEDS: buPROPion HCL XL (24 HR) 150 MG TABCR PO (08:05)
[2024-01-01] MEDS: hydrOXYzine HCL 25 MG TABLET PO (08:05)
[2024-01-01] MEDS: CHOLECALCIFEROL 1,000 UNITS TABLET 5000 UNITS PO (08:05)
[2024-01-01] MEDS: SUCRALFATE SUSP 100 MG/ML 10 ML UDC 1000 MG PO (08:05)
[2024-01-01] MEDS: FUROSEMIDE 40 MG TABLET PO (08:05)
[2024-01-01] MEDS: BACLOFEN 5 MG TABLET 15 MG PO (08:06)
[2024-01-01] MEDS: LIDOCAINE 5% PATCH 1 PATCH TRANSDERM (08:06)
[2024-01-01] MEDS: QUEtiapine FUMARATE 12.5 MG TABLET PO (08:06)
[2024-01-01] MEDS: rifAXIMin 550 MG TABLET PO (08:07)
[2024-01-01 08:51] LABS: Hematocrit 43.2 % (42.0-52.0); Hemoglobin 14.7 g/dL (14.0-18.0); Mean Corpuscular Volume 93.9 fl (80-100); Mean Platelet Volume 9.9 fl (7.4-10.4); Platelet Count Result 205 k/mm3 (150-375); White Blood Count 7.2 K/mm3 (4.5-10.0)
[2024-01-01 09:01] LABS: Alanine Aminotransferase 38 U/L (6-50); Alkaline Phosphatase 65 U/L (38-126); Anion Gap 5 mmol/L (8-16); Aspartate Amino Transferase 41 U/L (17-59); Bilirubin,Total 0.8 mg/dL (0.2-1.3); Blood Urea Nitrogen 11 mg/dL (9-20); Calcium 9.1 mg/dL (8.4-10.2); Carbon Dioxide 28 mmol/L (22-30); Chloride 104 mmol/L (98-107); Estimated CRCL calculation 119 ml/min; Estimated Glomerular Filt Rate > 60; Glucose 97 mg/dL (65-110); Potassium 3.9 mmol/L (3.4-5.0); Sodium 137 mmol/L (137-145)
[2024-01-01] MEDS: GABAPENTIN 300 MG CAPSULE PO (13:28)
--- NOTE | 2024-01-01 15:20 | PM.DS ---
DS: Admitting Diagnosis Discharge Date 01/01/2024 Admitting Diagnosis Encephalopathy DS: Discharge Diagnosis Discharge Diagnosis (1) Encephalopathy: Code(s): G93.40 - Encephalopathy, unspecified Status: Acute (2) Altered mental status: Qualifiers: Altered mental status type: somnolence Qualified Code(s): R40.0 - Somnolence Code(s): R41.82 - Altered mental status, unspecified Status: Acute (3) Alcohol dependence: Code(s): F10.20 - Alcohol dependence, uncomplicated Status: Acute (4) 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: Code(s): S72.002K - Fracture of unspecified part of neck of left femur, subsequent encounter for closed fracture with nonunion Status: Acute (5) Cirrhosis: Qualifiers: Ascites presence: with ascites Hepatic cirrhosis type: alcoholic cirrhosis Qualified Code(s): K70.31 - Alcoholic cirrhosis of liver with ascites Code(s): K74.60 - Unspecified cirrhosis of liver Status: Chronic (6) Polypharmacy: Code(s): Z79.899 - Other jail (current) drug therapy Status: Acute Plan Acute encephalopathy/AMS likely secondary to multiple sedatives 8+ sedative medications decreased medications to start tapering off patient will need to continue after discharge to avoid withdraw patient more alert and oriented patient was positive for opiates, benzos, and cannabis encouraged cannabis cessation ABG showed hypoxia and hypercapnia recommended sleep study O/P to evaluate for BULMARO Fracture LT hip will need dental follow-up for extraction of teeth before repair can be done PT/OT as tolerated pain control Cirrhosis secondary to alcohol abuse Liver enzymes WNL ETOH cessation has been alcohol free for over a hour. no ascites noted on CT Hypoxia abg PO2 68.2 secondary to sedatives needs sleep study O/P for BULMARO evaluation on RA Disposition: Discharged back to SNF DS: Summary Hospital Course Reason for hospitalization: Acute encephalopathy Hospital Course: Patient is a 38-year-old male who presented to the emergency department from [facility] due to worsening lethargy and altered mental status. Per medical records the patient had recent fall while transferring cell from wheelchair to chair which he performs on his own but denied any further pain at time of fall. Over the past 2 days patient has been more lethargic and was transferred via EMS to emergency department for evaluation and treatment. Patient has a past medical history alcohol abuse cirrhosis, Holt's esophagus esophageal varices, GI bleed, fractured left hip which has yet to be repaired. Once the labs in the emergency department worsening are unremarkable extended year old who is standing or hypoxia and hypercapnia. Diagnostic imaging showed no acute issue is with continued chronic left hip fracture. Patient was admitted to the medical-surgical unit for further evaluation and treatment acute encephalopathy. Upon review of patient's medication records he appeared to be on multiple sedative medications greater than 8 as well as positive for cannabis this is likely cause of patient's acute encephalopathy. De-escalated patient's sedative medications will need to continue to taper down at [facility] facility patient was made aware of polypharmacy need to taper and agreed with plan patient's medications included baclofen, BuSpar, Seroquel, sertraline, gabapentin, [place], trazodone, and Wellbutrin. Patient with chronic left hip fracture unable to repair orthopedic surgeon states patient has multiple dental carriers and needs teeth extraction before full hip replacement due to increased risk of severe infection. Patient seen is sustained discharge alert oriented following all commands back to baseline. Patient educated on need for the premedication and was discharged back to [facility] facility enc
== END 2024-01-01 17:50 | DRG 92 ==
LOC: ANHED 23:23 → ANH3MED 23:53
PROVIDERS: Emergency Medicine; Nurse Practitioner Family; Admitting Provider Internal Medicine; Emergency Provider Physician Assistant; PCP Hospitalist; Visit Provider Internal Medicine
DX: G92.8 Other toxic encephalopathy (principal); I85.10 Secondary esophageal varices without bleeding; S72.002K Fracture of unspecified part of neck of left femur, subsequent encounter for closed fracture with nonunion; K74.60 Unspecified cirrhosis of liver; K70.10 Alcoholic hepatitis without ascites; K22.70 Barrett's esophagus without dysplasia; K20.90 Esophagitis, unspecified without bleeding; D64.9 Anemia, unspecified; T42.75XA Adverse effect of unspecified antiepileptic and sedative-hypnotic drugs, initial encounter; F10.10 Alcohol abuse, uncomplicated; F32.A Depression, unspecified; F41.9 Anxiety disorder, unspecified; F17.210 Nicotine dependence, cigarettes, uncomplicated; Z20.822 Contact with and (suspected) exposure to COVID-19; Z86.010 Personal history of colon polyps; Z79.899 Other long term (current) drug therapy; Z99.3 Dependence on wheelchair
CPT/HCPCS: 36415; 36600; 70450; 71046; 71275; 73502; 74177; 80053; 80307; 81003; 82140; 82375; 82805; 83050; 83605; 83690; 83880; 84484; 85025; 85027; 85380; 85610; 85730; 86140; 87040; 87637; 93005; 93970; 96374; 99285; A9270; C9113; G0378; Q9967

== ENCOUNTER 2024-01-12 14:00 | Inpatient (IN) | payer MEDICARE, MEDICAID, SELFPAY ==
[2024-01-12] VITALS (22 sets, daily range): BP systolic 98–139; BP diastolic 64–94; PULSE 66–80; RESP 12–19; TEMP 36.4–36.6; O2SAT 93–97
--- NOTE | ~2024-01-12 | CT_ITS ---
EXAMINATION: CT soft tiss nk chst ab pel w DATE: 01/12/2024 18:21 INDICATION: Coffee-ground emesis, abdominal pain, throat pain TECHNIQUE: Transaxial computed tomographic images of the neck, chest, abdomen, and pelvis were obtain ed after the administration of 100 cc of Omnipaque 350 intravenous contrast. The dose-length product (DLP) was 605.33 mGy-cm. Automated exposure control and iterative reconstruction technique were emplo yed. COMPARISON: 12/31/2023 FINDINGS: NECK CT: The thyroid gland is unremarkable. The submandibular and parotid glands are symmetric. There is no lymphadenopathy. There are no masses identified. The vasculature is patent. The airway is unre markable. There are no osseous abnormalities. The orbits are unremarkable. The superior mediastinum i s unremarkable. Visualized sinuses and mastoid air cells are well aerated. CHEST CT: Again noted are chronic pneumatocele and scarring of the right upper lobe. The lungs are free of foca l airspace opacities. There is mild dependent atelectasis. No pleural effusion or pneumothorax. No pa thologically enlarged thoracic lymph nodes are identified. The heart size is normal. There is marked bilateral gynecomastia. There is mild thoracic spondylosis. ABDOMEN/PELVIS CT: The liver surface is nodular, consistent with cirrhosis. Paraesophageal varices are noted. The spleen , pancreas, gallbladder, and adrenal glands are normal. The kidneys are unremarkable. Again noted is a periumbilical portocaval shunt. There is a small umbilical hernia containing fat. The appendix is n ormal. No free intraperitoneal gas or evidence of bowel obstruction. No pathologically enlarged abdom inal or pelvic lymph nodes are identified. Again noted is an old fracture of the left femoral neck wi th nonunion. IMPRESSION: 1. No acute abnormality of the neck soft tissues. 2. Mild dependent atelectasis of the lungs without acute thoracic findings. 3. Cirrhosis with portal hypertension. Reviewed, dictated and finalized at location F.
--- NOTE | ~2024-01-12 | CT_ITS ---
EXAMINATION: CT brain wo con INDICATION: Alcohol withdrawal COMPARISON: 12/31/2023 TECHNIQUE: Standard unenhanced head CT. The dose-length product (DLP) was 605.33 mGy-cm. The mA was a djusted according to patient size. Iterative reconstruction technique was employed. FINDINGS: No intracranial hemorrhage, acute infarction, or abnormal mass lesion. The ventricles are n ormal. No abnormal mass effect or midline shift. The yoo-white matter differentiation is normal. The basal cisterns are patent. The orbits are normal. The paranasal sinuses, mastoids and calvarium are normal. IMPRESSION: 1. No acute intracranial abnormality. Reviewed, dictated and finalized at location F.
--- NOTE | ~2024-01-12 | XR_ITS ---
EXAMINATION: XR hip RT 2V w AP pelvis INDICATION: Pain after fall TECHNIQUE: AP view the pelvis and two views of the right hip are obtained. COMPARISON: 12/31/2023 FINDINGS: Again noted is an old fracture of the left femoral neck with nonunion. No acute fracture is identified. There is mild osteoarthritis of the right hip. IMPRESSION: 1. No acute osseous abnormality. Reviewed, dictated and finalized at location F.
--- NOTE | ~2024-01-12 | XR_ITS ---
EXAMINATION: XR knee RT 3V DATE: 01/17/2024 22:02 INDICATION: Right knee pain TECHNIQUE: Three views of the right knee were obtained. COMPARISON: None. FINDINGS: Alignment is normal. No fracture or osteochondral lesion. Joint spaces are normal with no e rosions. No joint effusion/synovitis. Soft tissues are unremarkable. IMPRESSION: 1. No acute osseous abnormality. Reviewed, dictated and finalized at location F.
--- NOTE | ~2024-01-12 | XR_ITS ---
EXAMINATION: XR chest 1V portable INDICATION: Cough TECHNIQUE: Portable AP chest at 1742 hours COMPARISON: 12/31/2023 FINDINGS: The lungs are free of acute opacities. No pleural effusion or pneumothorax. Cardiomediastin al silhouette is normal. IMPRESSION: 1. No acute cardiopulmonary abnormality. Reviewed, dictated and finalized at location F.
--- NOTE | ~2024-01-12 | US_ITS ---
EXAMINATION: US right upper quadrant DATE: 01/12/2024 18:39 INDICATION: Right upper quadrant pain TECHNIQUE: Multiple grayscale and Doppler ultrasound images of the abdomen were obtained. COMPARISON: 12/17/2023 FINDINGS: Bowel gas obscures visualization of the pancreas. The visualized portions of the pancreas a re unremarkable. There is nodularity of the liver surface, consistent with cirrhosis. Normal hepatope mary kate flow in the main portal vein. The gallbladder is normal with no abnormal wall thickening, pericho lecystic fluid or stones. The normal common bile duct measures 4 mm. There was no sonographic Venegas sign. IMPRESSION: 1. Cirrhosis. Reviewed, dictated and finalized at location F. IMPRESSION: 1. Cirrhosis.
--- NOTE | 2024-01-12 16:05 | ED.GIBLEED ---
HPI - GI Bleed General Chief complaint: Alcohol <Lawrence Roper APRN - Last Filed: 01/12/24 16:25> Stated complaint: neck and throat pain/dark emesis <Lawrence Roper APRN - Last Filed: 01/12/24 16:25> Time Seen by Provider: 01/12/24 16:15 <Lawrence Roper APRN - Last Filed: 01/12/24 16:25> Focused HPI: Lukas is a 38-year-old male patient presenting to the emergency room with complaints of vomiting up coffee-ground emesis this morning, abdominal distension, right upper quadrant abdominal pain with pain radiating to his back. History of alcohol abuse. States he has been drinking 2 L of vodka per day. States he wants to become clean and go through alcohol withdrawal and is wanting evaluated for this. Feels as though he has swelling in his throat and is hearing/seeing things that are not there. General: Well-developed, well nourished, in no apparent distress. Head: Normocephalic, atraumatic. Cardio: Regular rate and rhythm, s1 and s2 normal, no murmur appreciated. Resp: Clear to auscultation bilaterally, no rhonchi, rales, wheezing or rubs. Abdomen: Soft, pliable, bowel sounds present in all quadrants, non-tender to palpation, no organomegly, no CVAT tenderness. Patient screened in triage and initial orders placed. Additional care and disposition to be based upon diagnostic testing and treatment. <Lawrence Roper APRN - Last Filed: 01/12/24 16:25> History of Present Illness HPI Narrative: 38-year-old male with history of alcoholism, portal hypertension, esophageal varices, cirrhosis presents to the emergency department from [facility] and rehab via EMS for abdominal pain, distension and alcohol withdrawal. Patient states he normally drinks 2 L of vodka daily since he was 20 years old. Since his last drink was 1 hour prior to arrival today. He is reporting tremulousness, visual and auditory hallucinations, nausea and vomiting. Since he had an episode of dark coffee-ground emesis today prior to arrival. He is reporting right upper quadrant abdominal pain, abdominal distension and bloating. States he had an episode of dark stools but states they were not black. Patient states he is desiring to detox from alcohol and wants to be admitted for this. States he sees a statistical technician at [facility] and sees Dr. Hahn for varices. He reports a history of delirium tremens with denies alcoholic withdrawal seizures. He is also reporting a cough, denies fever, dysuria or hematuria. Patient also states he feels like his throat is tight intermittently when this occurs he feels like he has difficulty breathing. He states he does not currently feel tight. Denies throat pain or chest pain. Does report some shortness of breath. Denies drug use. <Vita Sheets PA-C - Last Filed: 01/12/24 20:33> Related Data Home medications: Home Medications Medication Instructions Recorded Confirmed thiamine HCl (vitamin B1) 100 mg 100 mg PO DAILY 04/20/21 01/12/24 tablet melatonin 3 mg tablet 3 mg PO HS 09/15/21 01/12/24 ferrous sulfate 325 mg (65 mg 325 mg PO DAILY 11/12/21 01/12/24 iron) tablet rifaximin 550 mg tablet (Xifaxan) 550 mg PO BID 11/12/21 01/12/24 acetaminophen 500 mg tablet 1,000 mg PO Q8H PRN Pain 06/24/22 01/12/24 (Acetaminophen Extra Strength) calcium carbonate 500 mg calcium 500 mg PO TID 06/24/22 01/12/24 (1,250 mg) chewable tablet cholecalciferol (vitamin D3) 125 125 mcg PO DAILY 06/24/22 01/12/24 mcg (5,000 unit) tablet potassium chloride 20 mEq 20 meq PO DAILY 06/24/22 01/12/24 tablet,extended release furosemide 20 mg tablet (Lasix) 40 mg PO BID 12/14/22 01/12/24 spironolactone 50 mg tablet 100 mg PO DAILY 12/14/22 01/12/24 (Aldactone) diclofenac sodium 1 % topical gel 2 g topical Q6H PRN Pain 12/15/23 01/12/24 lidocaine 5 % topical patch 1 patch transdermal DAILY 12/15/23 01/12/24 (Lidoderm) magnesium oxide 400 mg PO DAILY 12/15/23 01/12/24 propra
--- NOTE | 2024-01-12 16:10 | PC.NURSE ---
pt states has hx of decompensated cirrhosis, sees Dr. Camacho. States last drink was today around an hour before arrival.
[2024-01-12 16:51] LABS: Basophils Absolute Auto 0.1 K/mm3 (0.0-0.1); Basophils Percent Auto 1.1 % (0.2-1.2); Eosinophils Absolute Auto 0.3 K/mm3 (0-0.3); Eosinophils Percent Auto 4.2 % (0-4.4); Hematocrit 46.1 % (42.0-52.0); Hemoglobin 16.1 g/dL (14.0-18.0); Immature Granulocyte Absolute 0.03 K/mm3 (0.00-0.031); Immature Granulocyte Percent A 0.4 % (0-0.5); Lymphocytes Absolute Auto 2.11 K/mm3 (0.9-3.2); Lymphocytes Percent Auto 29.5 % (18.3-44.2); Mean Corpuscular HGB Conc 34.9 g/dl (32-36); Mean Corpuscular Volume 91.7 fl (80-100); Mean Platelet Volume 10.1 fl (7.4-10.4); Monocytes Percent Auto 14.2 % (2.6-8.5); Neutrophils Absolute Auto 3.6 K/mm3 (1.3-6.7); Neutrophils Percent Auto 50.6 % (45.5-73.1); Platelet Count Result 166 k/mm3 (150-375); Red Blood Count 5.03 M/mm3 (4.6-6.20); Red Cell Distribution Width 12.4 % (11.5-14.5); White Blood Count 7.2 K/mm3 (4.5-10.0)
[2024-01-12 17:02] LABS: Ammonia 31 umol/L (9-30); Ethanol 62 mg/dL (<10); Partial Thromboplastin Time 32.7 Seconds (22.3-36.8)
[2024-01-12 17:04] LABS: Alanine Aminotransferase 29 U/L (6-50); Albumin Level 4.6 g/dL (3.5-5.1); Alkaline Phosphatase 85 U/L (38-126); Anion Gap 10 mmol/L (8-16); Aspartate Amino Transferase 36 U/L (17-59); Bilirubin,Total 0.5 mg/dL (0.2-1.3); Blood Urea Nitrogen 11 mg/dL (9-20); Calcium 9.5 mg/dL (8.4-10.2); Carbon Dioxide 24 mmol/L (22-30); Chloride 103 mmol/L (98-107); Estimated CRCL calculation 133 ml/min; Estimated Glomerular Filt Rate > 60; Glucose 95 mg/dL (65-110); Lipase 166 U/L (23-300); Potassium 3.9 mmol/L (3.4-5.0); Sodium 137 mmol/L (137-145)
--- NOTE | 2024-01-12 17:19 | ECG_ITS ---
Measurements Intervals [place] Rate: 80 P: 10 [place]: 155 QRS: -11 QRSD: 102 T: 34 QT: 388 QTc: 449 Interpretive Statements SINUS RHYTHM CONSIDER INFERIOR INFARCT, AGE INDETERMINATE BORDERLINE T WAVE ABNORMALITY- ANTERIOR LEADS BASELINE WANDER- AVR, AVL, AVF ABNORMAL ECG COMPARED TO ECG 12/31/2023 23:34:21 MYOCARDIAL INFARCT FINDING NOW PRESENT Electronically Signed On 01-13-2024 14:01:15 CDT by Carl Fitzgerald D.O.
[2024-01-12] MEDS: PANTOPRAZOLE SODIUM IV 40 MG VIAL 80 MG IV PUSH (17:51)
[2024-01-12] MEDS: THIAMINE HCL 200 MG/2 ML VIAL 100 MG IV PUSH (17:51)
[2024-01-12] MEDS: ONDANSETRON INJ 4 MG/2 ML VIAL IV PUSH (17:55)
[2024-01-12] MEDS: SODIUM CHLORIDE 0.9% IV 1,000 ML 999 ML IV CONT (17:55)
[2024-01-12 17:58] LABS: Troponin I < 0.012 ng/mL (0.000-0.034)
[2024-01-12 18:45] LABS: Influenza A QL RT-PCR Negative (Negative); Influenza B QL RT-PCR Negative (Negative); RSV RNA, RT-PCR Negative (Negative); SARS-CoV-2 RNA PCR Negative (Negative)
[2024-01-12] MEDS: OCTREOTIDE ACETATE 50 MCG/ML VIAL IV PUSH (18:45)
[2024-01-12 19:57] LABS: Appearance Urine Clear (Clear); Bilirubin Urine Negative (Negative); Blood Urine Negative (Negative); Color Urine Yellow (Yellow); Glucose Urine UA Negative (Negative); Ketones Urine Negative (Negative); Leukocyte Esterase Ur Negative LEU/UL (Negative); Nitrate Urine Negative (Negative); Protein Urine Negative (Negative); Urobilinogen Urine 0.2 mg/dL (<2.0); pH Urine 5.5 (5.0-9.0)
[2024-01-12 19:59] LABS: Add Urine Microscopic? NO
[2024-01-12 20:00] LABS: Amphetamine Screen Urine Negative (Negative); Barbiturate Screen Urine Negative (Negative); Benzodiazepines Screen Urine Positive (Negative); Cannabinoid Screen Urine Positive (Negative); Cocaine Screen Urine Negative (Negative); Methadone Screen Urine Negative (Negative); Opiate Screen Urine Positive (Negative); Phencyclidine Screen Urine Negative (Negative)
--- NOTE | 2024-01-12 20:05 | PC.NURSE ---
Assumed care of pt. Bedside report from ALFREDO Madden. Pt resting quietly. Urine obtained and sent to lab. EKG obtained. pt given blanket per request. Axox4 at this time.
--- NOTE | 2024-01-12 20:10 | PC.NURSE ---
At bedside for rectal exam escort for ERP.
--- NOTE | 2024-01-12 20:55 | PM.IMHP ---
H&P: HPI History of Present Illness Date/Time: 01/12/24 20:55 Chief Complaint: Coffee-ground emesis Narrative: This is a 38-year-old male with past medical history significant for alcohol dependence, hepatic cirrhosis, esophageal varices, no union hip fracture, patient resides at group home, was brought to the emergency room for evaluation due to presumptive coffee-ground emesis however patient has no recollection of these denies having coffee-ground emesis here hemoccult test was negative. Preliminary workup has been essentially nonrevealing. Patient is unable to give any history contributory in a meaningful way. Has been placed in observation for further evaluation management and treatment. EXAMINATION: CT brain wo con ? INDICATION: Alcohol withdrawal ? COMPARISON: 12/31/2023 TECHNIQUE: Standard unenhanced head CT. The dose-length product (DLP) was 605.33 mGy-cm. The mA was adjusted according to patient size. Iterative reconstruction technique was employed. ? FINDINGS: No intracranial hemorrhage, acute infarction, or abnormal mass lesion. The ventricles are normal. No abnormal mass effect or midline shift. The yoo-white matter differentiation is normal. The basal cisterns are patent. The orbits are normal. The paranasal sinuses, mastoids and calvarium are normal. ? IMPRESSION: 1. No acute intracranial abnormality. EXAMINATION: CT soft tiss nk chst ab pel w DATE: 01/12/2024 18:21 INDICATION: Coffee-ground emesis, abdominal pain, throat pain TECHNIQUE: Transaxial computed tomographic images of the neck, chest, abdomen, and pelvis were obtained after the administration of 100 cc of Omnipaque 350 intravenous contrast. The dose-length product (DLP) was 605.33 mGy-cm. Automated exposure control and iterative reconstruction technique were employed. COMPARISON: 12/31/2023 FINDINGS: NECK CT: The thyroid gland is unremarkable. The submandibular and parotid glands are symmetric. There is no lymphadenopathy. There are no masses identified. The vasculature is patent. The airway is unremarkable. There are no osseous abnormalities. The orbits are unremarkable. The superior mediastinum is unremarkable. Visualized sinuses and mastoid air cells are well aerated. CHEST CT: Again noted are chronic pneumatocele and scarring of the right upper lobe. The lungs are free of focal airspace opacities. There is mild dependent atelectasis. No pleural effusion or pneumothorax. No pathologically enlarged thoracic lymph nodes are identified. The heart size is normal. There is marked bilateral gynecomastia. There is mild thoracic spondylosis. ABDOMEN/PELVIS CT: The liver surface is nodular, consistent with cirrhosis. Paraesophageal varices are noted. The spleen, pancreas, gallbladder, and adrenal glands are normal. The kidneys are unremarkable. Again noted is a periumbilical portocaval shunt. There is a small umbilical hernia containing fat. The appendix is normal. No free intraperitoneal gas or evidence of bowel obstruction. No pathologically enlarged abdominal or pelvic lymph nodes are identified. Again noted is an old fracture of the left femoral neck with nonunion. IMPRESSION: 1. No acute abnormality of the neck soft tissues. 2. Mild dependent atelectasis of the lungs without acute thoracic findings. 3. Cirrhosis with portal hypertension. EXAMINATION: XR chest 1V portable INDICATION: Cough TECHNIQUE: Portable AP chest at 1742 hours COMPARISON: 12/31/2023 FINDINGS: The lungs are free of acute opacities. No pleural effusion or pneumothorax. Cardiomediastinal silhouette is normal. IMPRESSION: 1. No acute cardiopulmonary abnormality. EXAMINATION: US right upper quadrant DATE: 01/12/2024 18:39 INDICATION: Right upper quadrant pain TECHNIQUE: Multiple grayscale and Doppler ultrasound images of the abdomen were obtained. COMPARISON: 12/17/2023 FINDINGS: Bowel gas obscures visualization of the pancreas. The visualized portions of the panc
[2024-01-12 21:01] LABS: Glucose Point of Care 101 mg/dl (65-105)
--- NOTE | 2024-01-12 22:40 | PC.NURSE ---
During tech packing up pt for transport, IV bag broke and med wasted. ALFREDO Hensley on [facility] aware and pharmacy sending replacement to [facility].
--- NOTE | 2024-01-12 23:19 | ADMGEN ---
This patient, Lukas Diaz, was admitted to 2 Medical Room 257-01. Patient/family oriented to hospital policies and general routines including ID bracelet, bed and alarms, visiting hours, pain management, procedures, bathroom and other care routines, personal items, smoking policy, room service/diet, and visiting hours. Information on how to activate the Rapid Response Team has been discussed. Patient/Family are encouraged to report perceived risks to care and to ask questions if they do not understand what they are told or what they should do.
[2024-01-13] VITALS (15 sets, daily range): BP systolic 107–132; BP diastolic 68–77; PULSE 57–83; RESP 16–18; TEMP 36.6–37.1; O2SAT 94–97
[2024-01-13 00:10] LABS: Glucose Point of Care 130 mg/dl (65-105)
[2024-01-13 07:10] LABS: Glucose Point of Care 122 mg/dl (65-105)
[2024-01-13 08:42] LABS: Hematocrit 44.4 % (42.0-52.0); Mean Corpuscular HGB Conc 33.8 g/dl (32-36); Mean Corpuscular Hemoglobin 31.3 pg (26-34); Mean Corpuscular Volume 92.5 fl (80-100); Mean Platelet Volume 10.7 fl (7.4-10.4); Platelet Count Result 148 k/mm3 (150-375); Red Cell Distribution Width 12.2 % (11.5-14.5); White Blood Count 7.4 K/mm3 (4.5-10.0)
[2024-01-13 08:46] LABS: Anion Gap 6 mmol/L (8-16); Blood Urea Nitrogen 9 mg/dL (9-20); Carbon Dioxide 25 mmol/L (22-30); Chloride 103 mmol/L (98-107); Estimated CRCL calculation 133 ml/min; Estimated Glomerular Filt Rate > 60; Glucose 122 mg/dL (65-110); Potassium 4.1 mmol/L (3.4-5.0); Sodium 134 mmol/L (137-145)
--- NOTE | 2024-01-13 08:47 | PM.IMPN ---
Progress Note: A&P Assessment and Plan (1) Hepatic encephalopathy: Code(s): K72.90 - Hepatic failure, unspecified without coma Status: Acute Assessment and Plan: Well controlled on home rifaximin 550 mg BID. Continue rifaximin (2) Coffee ground emesis: Code(s): K92.0 - Hematemesis Status: Acute Assessment and Plan: Concern for upper GI bleed. Patient has history of esophageal varices and portal hypertension s/p banding of varicies in 2020. EGD 06/2022: esophageal varices and barretts esophagus without dysplasia. Prior to admission patient had one episode of coffee ground emesis. This has not occurred since admission. He has had one dark tarry stool since admission. There is no evidence of active bleeding at this time. H&H remain stable. GI examined patient and plan for an EGD tomorrow. EGD ordered NPO after 0000 Protonix 40 mg q12 Continue to monitor H&H (3) Cirrhosis: Qualifiers: Ascites presence: without ascites Hepatic cirrhosis type: alcoholic cirrhosis Qualified Code(s): K70.30 - Alcoholic cirrhosis of liver without ascites Code(s): K74.60 - Unspecified cirrhosis of liver Status: Acute Assessment and Plan: Follows with [facility] Hepatology. Patient states his next appointment is scheduled in April. CT scan showed cirrhosis without ascites. Cirrhosis also seen on US. avoid hepatotoxic medications follow up with [facility] hepatology (4) Alcohol withdrawal: Qualifiers: Complication of substance-induced condition: uncomplicated Qualified Code(s): F10.930 - Alcohol use, unspecified with withdrawal, uncomplicated Code(s): F10.939 - Alcohol use, unspecified with withdrawal, unspecified Status: Acute Assessment and Plan: Patient drinks 1-2 L vodka daily. He has a history of delirium tremens with previous withdrawals. He continues to have visual hallucinations, restless leg, and tremors at this time. He reports interest in alcohol cessation. CIWA protocol Ativan 1 mg q4 with plan to taper Continue thiamine, folic acid, and multivitamin Time Spent With Patient Time with patient: 25 - 35 minutes Subjective Date/time seen: 01/13/24 08:47 Interval history: Patient is a 38 year old male with past medical history of alcohol dependence, cirrhosis, ball esophagus, esophageal varices, GI bleed, and chronic left hip fracture presented to the ED for coffee ground emesis, abdominal distension, and right upper quadrant abdominal pain with radiation to the back. Patient is lying in bed comfortably throughout my exam. He currently stays a [facility]. He says he will sign himself out to be with his friends which is when he drinks the 1-2 L of vodka. He was previously sober for 6 months due to his hospital admission for the hip fracture. He notes that he wishes he stayed sober and thinks he needs new friends because when he is with them they want to drink. He states that last night he had hallucinations of people crawling on the floor and faces peaking through the yepez. This hallucination lasted anywhere between 10-30 minutes according to the patient. He denies current hallucinations. He also endorses tremors. He has not had any coffee ground emesis today. He does report one episode of dark tar like stool. He continues have abdominal cramping and have restless legs. Review of Systems Review of Systems: All systems reviewed & are unremarkable except as noted in HPI and below Exam Narrative: AF HR 60 RR 16 SpO2 95 BP 127/73 General: male in no acute respiratory distress who is nontoxic appearing, lying semi recumbent in bed. HEENT: Normocephalic. Atraumatic. Pupils equal round reactive to light. Extraocular movement intact. Sclera clear and anicteric. No facial asymmetry. Chest: Lungs are clear to auscultation bilaterally. No wheezes or crackles. CV: Heart was regular rate and rhythm. S1/S2. No murmurs, gallops, or rub
[2024-01-13] MEDS: CHOLECALCIFEROL 1,000 UNITS TABLET 5000 UNITS PO (09:31)
[2024-01-13] MEDS: BACLOFEN 5 MG TABLET 15 MG PO ×3 (09:31→16:49)
[2024-01-13] MEDS: CALCIUM CARBONATE (TUMS) 500 MG (200 MG ELEMENTAL) PO ×2 (09:31→13:06)
[2024-01-13] MEDS: PROPRANOLOL HCL 10 MG TABLET PO ×2 (09:32→20:50)
[2024-01-13] MEDS: FERROUS SULFATE 325 MG TABLET DR BY MOUTH (09:32)
[2024-01-13] MEDS: SPIRONOLACTONE 50 MG TABLET 100 MG PO (09:32)
[2024-01-13] MEDS: PRAZOSIN HCL 1 MG CAPSULE PO ×4 (09:33→20:50)
[2024-01-13] MEDS: diazePAM (*CRX) 5 MG TABLET PO (09:33)
[2024-01-13] MEDS: THIAMINE HCL 100 MG TABLET PO (09:33)
[2024-01-13] MEDS: FUROSEMIDE 40 MG TABLET PO ×2 (09:33→16:50)
[2024-01-13] MEDS: rifAXIMin 550 MG TABLET PO ×2 (09:33→20:51)
[2024-01-13] MEDS: MAGNESIUM OXIDE 400 MG TABLET PO (09:33)
[2024-01-13] MEDS: QUEtiapine FUMARATE 25 MG TABLET 12.5 MG PO ×3 (09:33→16:50)
[2024-01-13] MEDS: POTASSIUM CHLORIDE 20 MEQ ER TABLET PO (09:33)
[2024-01-13] MEDS: FOLIC ACID 1 MG TABLET PO (09:33)
[2024-01-13] MEDS: busPIRone HCL 5 MG TABLET PO ×2 (09:33→16:49)
[2024-01-13] MEDS: LACTULOSE 20 GM/30 ML UDC PO ×3 (09:34→16:49)
[2024-01-13] MEDS: buPROPion HCL 100 MG TABLET PO ×3 (09:34→16:49)
[2024-01-13] MEDS: hydrOXYzine HCL 25 MG TABLET PO ×3 (09:34→16:49)
[2024-01-13] MEDS: HYDROcodone/acetaminophen (*CRX) 10-325 MG TABLET 1 TAB PO ×2 (10:43→21:15)
--- NOTE | 2024-01-13 11:25 | P.CONGI_ITS ---
I, Eric Oconnell MD, have provided a substantive portion of the care of this patient and discussed the patient with my Nurse Practitioner. I have reviewed any new relevant radiographic and laboratory results including medications. I agree with her documentation as noted below.?I personally performed the medical decision making and much of the history and exam for this encounter. briefly, he is well known to our practice. He has known alcoholic cirrhosis with decompensation (encephalopathy, ascites, GIB due to EV with banding 2020, repeat egd did not require), currently staying at [place] after had hip trauma- awaiting on surgery. Here with coffee ground emesis but hgb is normal, liver enzymes almost normal. CT scan cirrhosis, no ascites. He is comfortable now. Plan protonix, octreotide and EGD in am. Assessment and Plan Assessment and plan (1) Coffee ground emesis: Code(s): K92.0 - Hematemesis Status: Acute Assessment and Plan: -Concern for upper GI bleed, only one episode with one dark stool per patient. H&H stable with normal BUN. No evidence of active GI bleed at this time. He has been actively drinking alcohol as well. Has not occurred since admitted, which is reassuring Hx of esophageal varices, last EGD in 2021 with banding required last in 2020 recommend EGD, NPO after midnight. monitor H&H Continue PPI BID (2) Decompensation of cirrhosis of liver: Code(s): K72.90 - Hepatic failure, unspecified without coma; K74.60 - Unspecified cirrhosis of liver Status: Acute Assessment and Plan: Follows with [facility] Hepatology Recent US with cirrhotic liver, no ascites or liver lesions this is due to alcohol. MELD 6 F/u with [facility] hepatology (3) Esophageal varices: Code(s): I85.00 - Esophageal varices without bleeding Status: Acute Assessment and Plan: hx of grade 2 varices and portal hypertension s/p banding of varices in 2020 EGD in 2021 with small distal esophageal varices, no banding needed (4) Portal hypertension: Code(s): K76.6 - Portal hypertension Status: Acute Assessment and Plan: Continue Propranolol 10 mg BID (5) Thrombocytopenia: Code(s): D69.6 - Thrombocytopenia, unspecified Status: Acute Assessment and Plan: mild monitor (6) Alcohol withdrawal syndrome: Qualifiers: Complication of substance-induced condition: with delirium Qualified Code(s): F10.931 - Alcohol use, unspecified with withdrawal delirium Code(s): F10.939 - Alcohol use, unspecified with withdrawal, unspecified Status: Acute Assessment and Plan: WA protocol. recommend thiamine, folic acid and MVI daily (7) Hepatic encephalopathy: Code(s): K72.90 - Hepatic failure, unspecified without coma Status: Acute Assessment and Plan: Already on Xifaxan 550 mg BID at home, recommend continue GI Consult Note Consult date/time: 01/13/24 11:10 HPI: Lukas Diaz is a 38 year old male with known history of decompensated c irrhosis secondary to chronic alcohol abuse along with under lying known esophageal varices with a history of banding, and ascites.. He follows with [facility] hepatology. [facility] and has been drinking 1-2 L of hard liquor daily-yesterday he reported 1 episode of coffee-ground emesis and had a tarry stool but states it was not black. He denies any abdominal pain. Denies any NSAID use. He tells me he has been taking pantoprazole twice per day. On arrival his heme a globe and hematocrit were normal and continued to be stable with no acute drop
--- NOTE | 2024-01-13 11:25 | WPDGICN ---
Assessment and Plan Assessment and plan (1) Coffee ground emesis: Code(s): K92.0 - Hematemesis Status: Acute Assessment and Plan: -Concern for upper GI bleed, only one episode with one dark stool per patient. H&H stable with normal BUN. No evidence of active GI bleed at this time. He has been actively drinking alcohol as well. Has not occurred since admitted, which is reassuring Hx of esophageal varices, last EGD in 2021 with banding required last in 2020 recommend EGD, NPO after midnight. monitor H&H Continue PPI BID (2) Decompensation of cirrhosis of liver: Code(s): K72.90 - Hepatic failure, unspecified without coma; K74.60 - Unspecified cirrhosis of liver Status: Acute Assessment and Plan: Follows with [facility] Hepatology Recent US with cirrhotic liver, no ascites or liver lesions this is due to alcohol. MELD 6 F/u with [facility] hepatology (3) Esophageal varices: Code(s): I85.00 - Esophageal varices without bleeding Status: Acute Assessment and Plan: hx of grade 2 varices and portal hypertension s/p banding of varices in 2020 EGD in 2021 with small distal esophageal varices, no banding needed (4) Portal hypertension: Code(s): K76.6 - Portal hypertension Status: Acute Assessment and Plan: Continue Propranolol 10 mg BID (5) Thrombocytopenia: Code(s): D69.6 - Thrombocytopenia, unspecified Status: Acute Assessment and Plan: mild monitor (6) Alcohol withdrawal syndrome: Qualifiers: Complication of substance-induced condition: with delirium Qualified Code(s): F10.931 - Alcohol use, unspecified with withdrawal delirium Code(s): F10.939 - Alcohol use, unspecified with withdrawal, unspecified Status: Acute Assessment and Plan: CIWA protocol. recommend thiamine, folic acid and MVI daily (7) Hepatic encephalopathy: Code(s): K72.90 - Hepatic failure, unspecified without coma Status: Acute Assessment and Plan: Already on Xifaxan 550 mg BID at home, recommend continue GI Consult Note Consult date/time: 01/13/24 11:10 HPI: Lukas Diaz is a 38 year old male with known history of decompensated cirrhosis secondary to chronic alcohol abuse along with under lying known esophageal varices with a history of banding, and ascites.. He follows with [facility] hepatology. He resides at a assisted and has been drinking 1-2 L of hard liquor daily-yesterday he reported 1 episode of coffee-ground emesis and had a tarry stool but states it was not black. He denies any abdominal pain. Denies any NSAID use. He tells me he has been taking pantoprazole twice per day. On arrival his heme a globe and hematocrit were normal and continued to be stable with no acute drop with very mild thrombocytopenia, platelets of 148 and normal INR of 1.0. Liver enzymes are normal. Occult stool was negative. CTA of the chest abdomen pelvis noted cirrhosis with portal hypertension, and mild dependent atelectasis of the lungs with no acute findings along with an abdominal ultrasound with cirrhotic appearing liver (recs reviewed). Since being here in the hospital he has had no further coffee-ground emesis or black tarry stools. Denies any hematochezia. He is tolerating a normal diet and eating today. He was sitting up in a chair. He denies any lower extremity edema. He states he is ready to quit drinking and was told his friend that he no longer wants to hang out with them. Review of Systems Constitutional: Constitutional: Denies headache(s) and Denies weakness Eyes: Eyes: Denies blurry vision ENT: Reports Normal hearing present, Denies headache(s) and Denies neck pain Cardiovascular: Cardiovascular: Denies chest pain and Denies dyspnea Respiratory: Respiratory: Denies dyspnea Gastrointestinal: Gastrointestinal: Reports no additional gastrointestinal complaints Genitourinary: Genitourinary: Denies dysuria
[2024-01-13 12:08] LABS: Glucose Point of Care 168 mg/dl (65-105)
[2024-01-13] MEDS: LORazepam (*CRX) 1 MG TABLET PO ×2 (16:50→20:50)
[2024-01-13 17:44] LABS: Glucose Point of Care 192 mg/dl (65-105)
[2024-01-13] MEDS: MELATONIN 3 MG TABLET PO (20:51)
[2024-01-13] MEDS: traZODone HCL 50 MG TABLET PO (20:51)
[2024-01-13] MEDS: PANTOPRAZOLE SODIUM IV 40 MG VIAL IV PUSH (21:03)
[2024-01-13 23:18] LABS: Glucose Point of Care 131 mg/dl (65-105)
[2024-01-14] VITALS (17 sets, daily range): BP systolic 107–126; BP diastolic 64–86; PULSE 56–75; RESP 16–20; TEMP 36.1–36.6; O2SAT 94–98
[2024-01-14] MEDS: LORazepam (*CRX) 1 MG TABLET PO (05:31)
[2024-01-14 06:11] LABS: Glucose Point of Care 128 mg/dl (65-105)
[2024-01-14 06:18] LABS: Potassium 3.8 mmol/L (3.4-5.0)
--- NOTE | 2024-01-14 07:12 | PM.IMPN ---
Progress Note: A&P Assessment and Plan (1) Hepatic encephalopathy: Code(s): K72.90 - Hepatic failure, unspecified without coma Status: Acute Assessment and Plan: Patient remains AOx4. Well controlled on home rifaximin 550 mg BID. Continue rifaximin (2) Coffee ground emesis: Code(s): K92.0 - Hematemesis Status: Acute Assessment and Plan: Concern for upper GI bleed. Patient has history of esophageal varices and portal hypertension s/p banding of varicies in 2020. EGD 06/2022: esophageal varices and barretts esophagus without dysplasia. Prior to admission patient had one episode of coffee ground emesis. This has not occurred since admission. He had one dark tarry stool yesterday. There is no evidence of active bleeding at this time. H&H remain stable. EGD today revealed no active bleeding and barretts esophagus without dysplasia. He has had multiple bowel movements without hematochezia or melena and denies nausea/vomiting. Protonix 40 mg q12 Continue to monitor H&H (3) Cirrhosis: Qualifiers: Ascites presence: without ascites Hepatic cirrhosis type: alcoholic cirrhosis Qualified Code(s): K70.30 - Alcoholic cirrhosis of liver without ascites Code(s): K74.60 - Unspecified cirrhosis of liver Status: Acute Assessment and Plan: Follows with [facility] Hepatology. Patient states his next appointment is scheduled in April. CT scan showed cirrhosis without ascites. Cirrhosis also seen on US. MELD 6. Cirrhosis is related to alcohol. avoid hepatotoxic medications follow up with [facility] hepatology (4) Alcohol withdrawal: Qualifiers: Complication of substance-induced condition: uncomplicated Qualified Code(s): F10.930 - Alcohol use, unspecified with withdrawal, uncomplicated Code(s): F10.939 - Alcohol use, unspecified with withdrawal, unspecified Status: Acute Assessment and Plan: Patient drinks 1-2 L vodka daily. He has a history of delirium tremens with previous withdrawals. He continues to have visual/auditory hallucinations, restless leg, and tremors at this time. He reports interest in alcohol cessation. He states he previously used Qanon which was beneficial. 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 Patient will need dental follow up for teeth extraction before repair can be done. Continue home pain medications Time Spent With Patient Time with patient: 25 - 35 minutes Subjective Date/time seen: 01/14/24 07:12 Interval history: Patient is a 38 year old male with past medical history of alcohol dependence, cirrhosis, ball esophagus, esophageal varices, GI bleed, and chronic left hip fracture presented to the ED for coffee ground emesis, abdominal distension, and right upper quadrant abdominal pain with radiation to the back. Patient is pleasant lying in bed. He underwent an EGD today which showed barretts esophagus without dysplasia and without signs of bleeding. He complains of mild right upper quadrant abdominal pain that he describes as cramping. He denies nausea/vomiting and has had several bowel movements without hematochezia and melena. Overnight he was taken off CIWA protocol do to multiple negative examines, however CIWA protocol will be restarted today. He is now having visual hallucinations of dark demon like figures running throughout his room and hiding in his closet along with auditory hallucinations of indistinct whispering. He states he has become increasingly paranoid during his stay due to these hallucinations, but is able to
[2024-01-14 07:36] LABS: Hematocrit 44.7 % (42.0-52.0); Hemoglobin 15.1 g/dL (14.0-18.0); Mean Corpuscular HGB Conc 33.8 g/dl (32-36); Mean Corpuscular Hemoglobin 31.4 pg (26-34); Mean Corpuscular Volume 92.9 fl (80-100); Mean Platelet Volume 12.3 fl (7.4-10.4); Platelet Count Result 146 k/mm3 (150-375); Red Blood Count 4.81 M/mm3 (4.6-6.20); Red Cell Distribution Width 12.8 % (11.5-14.5); White Blood Count 5.1 K/mm3 (4.5-10.0)
[2024-01-14 07:52] LABS: Alanine Aminotransferase 24 U/L (6-50); Albumin Level 4.2 g/dL (3.5-5.1); Alkaline Phosphatase 66 U/L (38-126); Anion Gap 8 mmol/L (8-16); Aspartate Amino Transferase 30 U/L (17-59); Bilirubin,Total 0.8 mg/dL (0.2-1.3); Blood Urea Nitrogen 9 mg/dL (9-20); Calcium 9.4 mg/dL (8.4-10.2); Carbon Dioxide 24 mmol/L (22-30); Chloride 105 mmol/L (98-107); Estimated CRCL calculation 133 ml/min; Estimated Glomerular Filt Rate > 60; Glucose 119 mg/dL (65-110); Potassium 3.8 mmol/L (3.4-5.0); Sodium 137 mmol/L (137-145)
[2024-01-14] MEDS: PANTOPRAZOLE SODIUM IV 40 MG VIAL IV PUSH (08:18)
--- NOTE | 2024-01-14 08:19 | PC.NURSE ---
pt NPO will administer meds after procedure, pt resting comfortably
--- NOTE | 2024-01-14 09:01 | PC.NURSE ---
call to pharm for due dose of sandostatin IVPB
[2024-01-14] MEDS: LACTATED RINGERS 1,000 ML 150 ML IV CONT (09:36)
--- NOTE | 2024-01-14 10:19 | WPDANESEPPF ---
Anes - Initial Pre Proc Eval Procedure: Operation Date: 01/14/24 15:30 Proposed Procedures p Esophagogastroduodenoscopy - Eric Oconnell MD Date/Time: 01/14/24 10:19 Surgeon: Manuel Dorsey MD Pre Op Diagnosis: Alcohol Withdrawal,RUQ Abdominal Pain Patient Data Age: 38 Gender: M Height: 1.7 m Weight: 93.2 kg Last Vital Signs Temp 97.0 F L 01/14/24 09:25 Pulse 64 01/14/24 09:25 Resp 18 01/14/24 09:25 BP 125/80 01/14/24 09:25 Pulse Ox 97 01/14/24 09:25 O2 Del Method Room Air 01/14/24 09:25 Allergies Allergy/AdvReac Type Severity Reaction Status Date / Time peanut Allergy Severe Anaphylaxis Verified 01/14/24 09:28 mushroom AdvReac Unknown Verified 01/14/24 09:28 Home Medications Medication Instructions Recorded Confirmed Type folic acid 1 mg tablet 1 mg PO DAILY #30 tabs 04/11/21 01/14/24 Rx thiamine HCl (vitamin B1) 100 mg 100 mg PO DAILY 04/20/21 01/14/24 History tablet melatonin 3 mg tablet 3 mg PO HS 09/15/21 01/14/24 History ferrous sulfate 325 mg (65 mg 325 mg PO DAILY 11/12/21 01/14/24 History iron) tablet rifaximin 550 mg tablet (Xifaxan) 550 mg PO BID 11/12/21 01/14/24 History acetaminophen 500 mg tablet 1,000 mg PO Q8H PRN Pain 06/24/22 01/14/24 History (Acetaminophen Extra Strength) calcium carbonate 500 mg calcium 500 mg PO TID 06/24/22 01/14/24 History (1,250 mg) chewable tablet cholecalciferol (vitamin D3) 125 125 mcg PO DAILY 06/24/22 01/14/24 History mcg (5,000 unit) tablet potassium chloride 20 mEq 20 meq PO DAILY 06/24/22 01/14/24 History tablet,extended release furosemide 20 mg tablet (Lasix) 40 mg PO BID 12/14/22 01/14/24 History spironolactone 50 mg tablet 100 mg PO DAILY 12/14/22 01/14/24 History (Aldactone) diclofenac sodium 1 % topical gel 2 g topical Q6H PRN Pain 12/15/23 01/14/24 History lidocaine 5 % topical patch 1 patch transdermal DAILY 12/15/23 01/14/24 History (Lidoderm) magnesium oxide 400 mg PO DAILY 12/15/23 01/14/24 History propranolol 10 mg tablet 10 mg PO BID 12/15/23 01/14/24 History quetiapine 25 mg tablet 12.5 mg PO TID 12/15/23 01/14/24 History sucralfate 100 mg/mL oral 10 ml PO TID 12/15/23 01/14/24 History suspension baclofen 10 mg tablet 15 mg PO TID 01/12/24 01/14/24 History bupropion HCl 100 mg tablet 100 mg PO TID 01/12/24 01/14/24 History buspirone 5 mg tablet 5 mg PO BID Anxiety 01/12/24 01/14/24 History diazepam 5 mg tablet 5 mg PO Q12H 01/12/24 01/14/24 History hydrocodone 10 mg-acetaminophen 1 tablet PO Q6H 01/12/24 01/14/24 History 325 mg tablet hydroxyzine HCl 25 mg tablet 25 mg PO TID Anxiety 01/12/24 01/14/24 History lactulose 10 gram/15 mL oral 30 ml PO TID 01/12/24 01/14/24 History solution meclizine 25 mg tablet 25 mg PO Q8H dizziness 01/12/24 01/14/24 History ondansetron HCl 4 mg tablet 4 mg PO Q8H PRN nausea/vomiting 01/12/24 01/14/24 History prazosin 1 mg capsule 1 mg PO QID 01/12/24 01/14/24 History trazodone 50 mg tablet 50 mg PO QHS 01/12/24 01/14/24 History Laboratory Tests 01/13/24 01/13/24 01/13/24 11:49 17:41 23:13 WBC RBC Hgb Hct MCV MCH MCHC RDW Plt Count MPV Sodium Potassium Chloride Carbon Dioxide Anion Gap BUN Creatinine Estim Creat Clear Calc Estimated GFR Glucose POC Capillary Glucose 168 H mg/dl 192 H mg/dl 131 H mg/dl (65-105) (65-105) (65-105) Calcium Total Bilirubin AST ALT Alkaline Phosphatase Total Protein Albumin 01/14/24 01/14/24 01/14/24 05:10 05:10 06:06 WBC 5.1 K/mm3 (4.5-10.0) RBC 4.81 M/mm3 (4.6-6.20) Hgb 15.1 g/dL (14.0-18.0) Hct 44.7 %
[2024-01-14] MEDS: BACLOFEN 5 MG TABLET 15 MG PO ×2 (11:41→17:22)
[2024-01-14] MEDS: CALCIUM CARBONATE (TUMS) 500 MG (200 MG ELEMENTAL) PO ×2 (11:42→17:23)
[2024-01-14] MEDS: PRAZOSIN HCL 1 MG CAPSULE PO ×3 (11:42→20:25)
[2024-01-14] MEDS: MAGNESIUM OXIDE 400 MG TABLET PO (11:42)
[2024-01-14] MEDS: FOLIC ACID 1 MG TABLET PO (11:42)
[2024-01-14] MEDS: SPIRONOLACTONE 50 MG TABLET 100 MG PO (11:43)
[2024-01-14] MEDS: rifAXIMin 550 MG TABLET PO ×2 (11:43→20:26)
[2024-01-14] MEDS: FERROUS SULFATE 325 MG TABLET DR BY MOUTH (11:43)
[2024-01-14] MEDS: hydrOXYzine HCL 25 MG TABLET PO ×2 (11:43→17:22)
[2024-01-14] MEDS: buPROPion HCL 100 MG TABLET PO ×2 (11:43→17:26)
[2024-01-14] MEDS: THIAMINE HCL 100 MG TABLET PO (11:43)
[2024-01-14] MEDS: CHOLECALCIFEROL 1,000 UNITS TABLET 5000 UNITS PO (11:43)
[2024-01-14] MEDS: chlordiazePOXIDE (*CRX) 25 MG CAPSULE PO ×2 (11:43→20:26)
[2024-01-14] MEDS: LACTULOSE 20 GM/30 ML UDC PO (11:44)
[2024-01-14] MEDS: QUEtiapine FUMARATE 25 MG TABLET 12.5 MG PO ×2 (11:44→17:22)
[2024-01-14] MEDS: POTASSIUM CHLORIDE 20 MEQ ER TABLET PO (11:44)
[2024-01-14] MEDS: FUROSEMIDE 40 MG TABLET PO ×2 (11:44→17:22)
[2024-01-14] MEDS: busPIRone HCL 5 MG TABLET PO ×2 (11:44→17:22)
[2024-01-14] MEDS: PROPRANOLOL HCL 10 MG TABLET PO ×2 (11:48→20:26)
[2024-01-14] MEDS: SUCRALFATE SUSP 100 MG/ML 10 ML UDC 1000 MG PO ×2 (11:50→17:27)
[2024-01-14 12:10] LABS: Glucose Point of Care 125 mg/dl (65-105)
[2024-01-14] MEDS: HYDROcodone/acetaminophen (*CRX) 10-325 MG TABLET 1 TAB PO (20:25)
[2024-01-14] MEDS: traZODone HCL 50 MG TABLET PO (20:26)
[2024-01-14] MEDS: MELATONIN 3 MG TABLET PO (20:26)
[2024-01-14 22:59] LABS: Glucose Point of Care 123 mg/dl (65-105)
[2024-01-15] VITALS (12 sets, daily range): BP systolic 109–118; BP diastolic 74–80; PULSE 56–660; RESP 17–18; TEMP 36.6–36.8; O2SAT 97–98
[2024-01-15] MEDS: LORazepam INJ (*CRX) 2 MG/ML VIAL IV PUSH ×2 (00:30→06:31)
[2024-01-15 03:52] LABS: Glucose Point of Care 118 mg/dl (65-105)
[2024-01-15 05:43] LABS: Hematocrit 42.8 % (42.0-52.0); Hemoglobin 14.8 g/dL (14.0-18.0); Mean Corpuscular HGB Conc 34.6 g/dl (32-36); Mean Corpuscular Hemoglobin 31.8 pg (26-34); Mean Platelet Volume 10.5 fl (7.4-10.4); Platelet Count Result 141 k/mm3 (150-375); Red Blood Count 4.65 M/mm3 (4.6-6.20); Red Cell Distribution Width 12.8 % (11.5-14.5); White Blood Count 6.2 K/mm3 (4.5-10.0)
[2024-01-15 05:58] LABS: Alanine Aminotransferase 22 U/L (6-50); Albumin Level 3.9 g/dL (3.5-5.1); Alkaline Phosphatase 62 U/L (38-126); Anion Gap 4 mmol/L (8-16); Aspartate Amino Transferase 25 U/L (17-59); Bilirubin,Total 0.7 mg/dL (0.2-1.3); Blood Urea Nitrogen 9 mg/dL (9-20); Calcium 9.3 mg/dL (8.4-10.2); Carbon Dioxide 30 mmol/L (22-30); Chloride 103 mmol/L (98-107); Estimated CRCL calculation 133 ml/min; Estimated Glomerular Filt Rate > 60; Glucose 106 mg/dL (65-110); Potassium 3.4 mmol/L (3.4-5.0); Sodium 137 mmol/L (137-145)
[2024-01-15 07:20] LABS: Glucose Point of Care 97 mg/dl (65-105)
[2024-01-15] MEDS: SUCRALFATE SUSP 100 MG/ML 10 ML UDC 1000 MG PO ×2 (07:40→10:00)
--- NOTE | 2024-01-15 07:48 | PM.IMPN ---
Progress Note: A&P Assessment and Plan (1) Hepatic encephalopathy: Code(s): K72.90 - Hepatic failure, unspecified without coma Status: Acute Assessment and Plan: Patient remains AOx4. Well controlled on home rifaximin 550 mg BID. Ammonia level 31 on admission, now WNL. Patient is incontinent due to ongoing diarrhea. Will hold lactulose at this time and continue to monitor ammonia level. Continue rifaximin Monitor ammonia (2) Coffee ground emesis: Code(s): K92.0 - Hematemesis Status: Acute Assessment and Plan: Concern for upper GI bleed. Patient has history of esophageal varices and portal hypertension s/p banding of varicies in 2020. EGD 06/2022: esophageal varices and barretts esophagus without dysplasia. Prior to admission patient had one episode of coffee ground emesis. This has not occurred since admission. He had one dark tarry stool yesterday. There is no evidence of active bleeding at this time. H&H remain stable. EGD revealed no active bleeding and barretts esophagus without dysplasia. He has had multiple bowel movements without hematochezia or melena and denies nausea/vomiting. Protonix 40 mg q12 Continue to monitor H&H (3) Cirrhosis: Qualifiers: Ascites presence: without ascites Hepatic cirrhosis type: alcoholic cirrhosis Qualified Code(s): K70.30 - Alcoholic cirrhosis of liver without ascites Code(s): K74.60 - Unspecified cirrhosis of liver Status: Acute Assessment and Plan: Follows with [facility] Hepatology. Patient states his next appointment is scheduled in April. CT scan showed cirrhosis without ascites. Cirrhosis also seen on US. MELD 6. Cirrhosis is related to alcohol. avoid hepatotoxic medications follow up with [facility] hepat[facility] (4) Alcohol withdrawal: Qualifiers: Complication of substance-induced condition: uncomplicated Qualified Code(s): F10.930 - Alcohol use, unspecified with withdrawal, uncomplicated Code(s): F10.939 - Alcohol use, unspecified with withdrawal, unspecified Status: Acute Assessment and Plan: Patient drinks 1-2 L vodka daily. He has a history of delirium tremens with previous withdrawals. He has active hallucinations, restless leg, and tremors at this time. He reports interest in alcohol cessation. He states he previously used Qanon which was beneficial. 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 Patient will need dental follow up for teeth extraction before repair can be done. Continue home pain medications Time Spent With Patient Time with patient: 25 - 35 minutes Subjective Date/time seen: 01/15/24 07:48 Interval history: Patient is a 38 year old male with past medical history of alcohol dependence, cirrhosis, ball esophagus, esophageal varices, GI bleed, and chronic left hip fracture presented to the ED for coffee ground emesis, abdominal distension, and right upper quadrant abdominal pain with radiation to the back. Patient is lying in bed. He is no longer having visual hallucinations, however the auditory hallucinations of whispers in his ears continues. He is now having tactile hallucinations, stating it feels as though fire ants are crawling on him and biting the back of his legs. He denies nausea/vomiting, but states he has had multiple episodes of diarrhea which have lead him to be incontinent, unable to make it to the toilet on time. Per RN patient was refusing his lactulose due to diarrhea. Rechecked patient ammonia and was WNL. Will hold lactulo
[2024-01-15 08:19] LABS: Glucose Point of Care 102 mg/dl (65-105)
[2024-01-15] MEDS: BACLOFEN 5 MG TABLET 15 MG PO ×3 (10:00→18:00)
[2024-01-15] MEDS: PRAZOSIN HCL 1 MG CAPSULE PO ×4 (10:00→20:22)
[2024-01-15] MEDS: FERROUS SULFATE 325 MG TABLET DR BY MOUTH (10:00)
[2024-01-15] MEDS: buPROPion HCL 100 MG TABLET PO ×3 (10:00→18:01)
[2024-01-15] MEDS: rifAXIMin 550 MG TABLET PO ×2 (10:00→20:21)
[2024-01-15] MEDS: CHOLECALCIFEROL 1,000 UNITS TABLET 5000 UNITS PO (10:00)
[2024-01-15] MEDS: hydrOXYzine HCL 25 MG TABLET PO ×3 (10:01→18:00)
[2024-01-15] MEDS: POTASSIUM CHLORIDE 20 MEQ ER TABLET PO (10:01)
[2024-01-15] MEDS: MAGNESIUM OXIDE 400 MG TABLET PO (10:01)
[2024-01-15] MEDS: FUROSEMIDE 40 MG TABLET PO ×2 (10:01→18:00)
[2024-01-15] MEDS: LORazepam (*CRX) 1 MG TABLET PO ×3 (10:01→20:21)
[2024-01-15] MEDS: busPIRone HCL 5 MG TABLET PO ×2 (10:01→18:01)
[2024-01-15] MEDS: THIAMINE HCL 100 MG TABLET PO (10:01)
[2024-01-15] MEDS: SPIRONOLACTONE 50 MG TABLET 100 MG PO (10:01)
[2024-01-15] MEDS: QUEtiapine FUMARATE 25 MG TABLET 12.5 MG PO ×3 (10:02→18:00)
[2024-01-15] MEDS: PROPRANOLOL HCL 10 MG TABLET PO ×2 (10:02→20:22)
[2024-01-15] MEDS: PANTOPRAZOLE 40 MG TABLET PO (10:02)
[2024-01-15] MEDS: FOLIC ACID 1 MG TABLET PO (10:02)
[2024-01-15] MEDS: CALCIUM CARBONATE (TUMS) 500 MG (200 MG ELEMENTAL) PO ×3 (10:03→17:59)
[2024-01-15 12:22] LABS: Glucose Point of Care 100 mg/dl (65-105)
--- NOTE | 2024-01-15 12:31 | WPDGIPROGNO ---
Progress Note: A&P Assessment and Plan (1) Coffee ground emesis: Code(s): K92.0 - Hematemesis Status: Acute Assessment and Plan: no signs of bleeding hgb normal he needs custodial PPI daily because ball's esophagus (no biopsies since he had varices previously) egd in 1 year no objections to discharge by gi standpoint (2) Alcohol dependence: Code(s): F10.20 - Alcohol dependence, uncomplicated Status: Acute Assessment and Plan: needs to quit (3) Cirrhosis: Qualifiers: Ascites presence: without ascites Hepatic cirrhosis type: alcoholic cirrhosis Qualified Code(s): K70.30 - Alcoholic cirrhosis of liver without ascites Code(s): K74.60 - Unspecified cirrhosis of liver Status: Acute Assessment and Plan: alcohol related thiamine, nutrition follow-up with hepatology (4) Abdominal pain: Qualifiers: Abdominal location: right upper quadrant Qualified Code(s): R10.11 - Right upper quadrant pain Code(s): R10.9 - Unspecified abdominal pain Status: Acute (5) Fracture of left hip: Code(s): S72.002A - Fracture of unspecified part of neck of left femur, initial encounter for closed fracture Status: Chronic Subjective Date/time seen: 01/15/24 12:31 Interval history: egd yesterday without signs of bleeding, did not find varices, had mild PHG and Ball's esophagus he is comfortable today Review of Systems Review of Systems: All systems reviewed & are unremarkable except as noted in HPI and below Exam Const: General: comfortable and no acute distress HENMT: Face/Nose/Sinus: Normal nares present Eyes: General: appearance normal, both eyes and all related structures Neck: Neck: supple Resp: Auscultation: clear to auscultation bilaterally Cardio: Rate: regular rate Rhythm: regular rhythm GI: GI Palp: Yes Soft to palpation and No Tenderness to palpation present (GI) Auscultation: normal bowel sounds Skin: General skin exam: normal color Neuro: Speech: normal speech Motor exam (neuro): 5/5 motor strength present throughout Extrem: General: normal to inspection Psych: Mental Status: mental status grossly normal Objective Data Vital Signs Vital Signs: Vital Signs - 24 hr 01/14/24 14:00 01/14/24 16:00 01/14/24 20:01 Temperature 97.6 F 97.9 F Pulse Rate 62 70 61 Respiratory Rate 16 18 Blood Pressure 115/74 107/64 Pulse Oximetry 96 97 Oxygen Delivery 01/14/24 20:26 01/14/24 20:15 01/15/24 06:00 Temperature 98.2 F Pulse Rate 61 64 Respiratory Rate 18 Blood Pressure 109/79 Pulse Oximetry 98 Oxygen Delivery Room Air 01/14/24 20:00 01/15/24 00:00 01/15/24 04:00 Temperature Pulse Rate 75 68 63 Respiratory Rate Blood Pressure Pulse Oximetry Oxygen Delivery 01/15/24 10:02 01/15/24 08:00 Temperature Pulse Rate 60 660 H Respiratory Rate Blood Pressure Pulse Oximetry Oxygen Delivery Intake/Output Intake/Output: Intake & Output 01/12/24 01/13/24 01/14/24 01/15/24 23:59 23:59 23:59 23:59 Intake Total 1000 1507.2 730 240 Output Total 750 2 Balance 1000 1507.2 -20 238 Meds/Results Medications: Active Medications Generic Name Dose Route Start Last Admin Trade Name Freq PRN Reason Stop Dose Admin Acetaminophen 1,000 mg 01/13/24 01:39 Acetaminophen 500 Mg Tablet PO Q8H PRN Pain Hydrocodone Bitart/Acetaminophen 1 tab 01/13/24 06:00 01/14/24 20:25 Hydrocodone/Acetaminophen (*Crx) 10-325 Mg Tablet PO 1 tab Q6HR PRN Administration Pain Rated 7-10 Baclofen 15 mg 01/13/24 09:00 01/15/24 10:00 Baclofen 5 Mg Tablet PO 15 mg TID LIDA Administration Bupropion HCl 100 mg 01/13/24 09:00 01/15/24 10:00 Bupropion Hcl 100 Mg Tablet PO 100 mg TID LIDA Administration Buspirone HCl 5 mg 01/13/24 09:00 01/15/24 10:01 Buspirone Hcl 5 Mg Tablet PO 5 mg BID LIDA Administ
[2024-01-15 13:18] LABS: Ammonia 13 umol/L (9-30)
--- NOTE | 2024-01-15 13:36 | WPDANESPN ---
Anes - Prog Note Post-Op Date/Time: 01/15/24 13:36 Cardiovascular status: normal Respiratory status: normal Airway patency: baseline Mental status: baseline Post-Op hydration status: normal Vital Signs: Last Vital Signs Temp 36.8 C 01/15/24 06:00 Pulse 60 01/15/24 10:02 Resp 18 01/15/24 06:00 BP 109/79 01/15/24 06:00 Pulse Ox 98 01/15/24 06:00 O2 Del Method Room Air 01/14/24 20:15 Pain Score (VAS): Patient asleep. No nonverbal signs of pain present at this time. I/O: Intake & Output 01/14/24 01/15/24 01/15/24 23:59 07:59 15:59 Intake Total 240 240 Output Total 750 2 Balance -510 -2 240 Laboratory Tests 01/15/24 05:26 01/15/24 05:26 01/14/24 01/15/24 01/15/24 19:27 00:08 05:26 WBC 6.2 RBC 4.65 Hgb 14.8 Hct 42.8 MCV 92.0 MCH 31.8 MCHC 34.6 RDW 12.8 Plt Count 141 L MPV 10.5 H % Immature Plt Fraction 6.0 Sodium 137 Potassium 3.4 Chloride 103 Carbon Dioxide 30 Anion Gap 4 L BUN 9 Creatinine 0.70 Estim Creat Clear Calc 133 Estimated GFR > 60 Glucose 106 POC Capillary Glucose 123 H 118 H Calcium 9.3 Total Bilirubin 0.7 AST 25 ALT 22 Alkaline Phosphatase 62 Ammonia Total Protein 7.0 Albumin 3.9 01/15/24 01/15/24 01/15/24 06:09 08:09 12:10 WBC RBC Hgb Hct MCV MCH MCHC RDW Plt Count MPV % Immature Plt Fraction Sodium Potassium Chloride Carbon Dioxide Anion Gap BUN Creatinine Estim Creat Clear Calc Estimated GFR Glucose POC Capillary Glucose 97 102 100 Calcium Total Bilirubin AST ALT Alkaline Phosphatase Ammonia Total Protein Albumin 01/15/24 13:01 WBC RBC Hgb Hct MCV MCH MCHC RDW Plt Count MPV % Immature Plt Fraction Sodium Potassium Chloride Carbon Dioxide Anion Gap BUN Creatinine Estim Creat Clear Calc Estimated GFR Glucose POC Capillary Glucose Calcium Total Bilirubin AST ALT Alkaline Phosphatase Ammonia 13 Total Protein Albumin Post-procedural complaints: none Patient Feedback: Patient satisfied with anesthetic care.
[2024-01-15] MEDS: LACTULOSE 20 GM/30 ML UDC PO (13:41)
[2024-01-15 17:38] LABS: Glucose Point of Care 126 mg/dl (65-105)
[2024-01-15] MEDS: HYDROcodone/acetaminophen (*CRX) 10-325 MG TABLET 1 TAB PO (20:20)
[2024-01-15] MEDS: traZODone HCL 50 MG TABLET PO (20:22)
[2024-01-15] MEDS: MELATONIN 3 MG TABLET PO (20:22)
[2024-01-16] VITALS (11 sets, daily range): BP systolic 98–117; BP diastolic 52–74; PULSE 62–75; RESP 16–18; TEMP 36.2–36.4; O2SAT 91–96
[2024-01-16 00:17] LABS: Glucose Point of Care 91 mg/dl (65-105)
[2024-01-16] MEDS: LORazepam (*CRX) 1 MG TABLET PO ×4 (01:49→21:14)
[2024-01-16] MEDS: HYDROcodone/acetaminophen (*CRX) 10-325 MG TABLET 1 TAB PO (01:50)
[2024-01-16 04:59] LABS: Hematocrit 43.9 % (42.0-52.0); Hemoglobin 14.8 g/dL (14.0-18.0); Mean Corpuscular HGB Conc 33.7 g/dl (32-36); Mean Corpuscular Hemoglobin 31.6 pg (26-34); Mean Corpuscular Volume 93.6 fl (80-100); Mean Platelet Volume 10.5 fl (7.4-10.4); Platelet Count Result 156 k/mm3 (150-375); Red Blood Count 4.69 M/mm3 (4.6-6.20); Red Cell Distribution Width 12.7 % (11.5-14.5); White Blood Count 7.2 K/mm3 (4.5-10.0)
[2024-01-16 05:14] LABS: Alanine Aminotransferase 19 U/L (6-50); Albumin Level 3.9 g/dL (3.5-5.1); Alkaline Phosphatase 71 U/L (38-126); Anion Gap 3 mmol/L (8-16); Aspartate Amino Transferase 24 U/L (17-59); Bilirubin,Total 0.5 mg/dL (0.2-1.3); Blood Urea Nitrogen 10 mg/dL (9-20); Calcium 9.4 mg/dL (8.4-10.2); Carbon Dioxide 28 mmol/L (22-30); Chloride 105 mmol/L (98-107); Estimated CRCL calculation 133 ml/min; Estimated Glomerular Filt Rate > 60; Glucose 101 mg/dL (65-110); Magnesium 1.7 mg/dL (1.6-2.3); Potassium 3.5 mmol/L (3.4-5.0); Sodium 136 mmol/L (137-145)
[2024-01-16] MEDS: SUCRALFATE SUSP 100 MG/ML 10 ML UDC 1000 MG PO ×3 (06:18→16:58)
[2024-01-16 06:24] LABS: Glucose Point of Care 100 mg/dl (65-105)
--- NOTE | 2024-01-16 06:50 | PM.IMPN ---
Progress Note: A&P Assessment and Plan (1) Hepatic encephalopathy: Code(s): K72.90 - Hepatic failure, unspecified without coma Status: Acute Assessment and Plan: Patient remains AOx4. Well controlled on home rifaximin 550 mg BID. Ammonia level 31 on admission, now WNL. Patient is incontinent due to ongoing diarrhea. Will hold lactulose at this time and continue to monitor ammonia level. Continue rifaximin Monitor ammonia (2) Coffee ground emesis: Code(s): K92.0 - Hematemesis Status: Acute Assessment and Plan: Concern for upper GI bleed. Patient has history of esophageal varices and portal hypertension s/p banding of varicies in 2020. EGD 06/2022: esophageal varices and barretts esophagus without dysplasia. Prior to admission patient had one episode of coffee ground emesis. This has not occurred since admission. He had one dark tarry stool yesterday. There is no evidence of active bleeding at this time. H&H remain stable. EGD revealed no active bleeding and barretts esophagus without dysplasia. He has had multiple bowel movements without hematochezia or melena and denies nausea/vomiting. Protonix 40 mg q12 Continue to monitor H&H (3) Hallucinations: Code(s): R44.3 - Hallucinations, unspecified Status: Acute Assessment and Plan: Active visual, auditory and tactile hallucinations in the setting of alcohol withdrawal, however patient has known psych history. During my exam he reported that the auditory hallucinations are telling him to kill himself. He denies suicidal ideation at this time. He notes he has harmed himself in the past due to voices tell him to do so. [facility] Sitter ordered Nursing made aware (4) Alcohol withdrawal: Qualifiers: Complication of substance-induced condition: uncomplicated Qualified Code(s): F10.930 - Alcohol use, unspecified with withdrawal, uncomplicated Code(s): F10.939 - Alcohol use, unspecified with withdrawal, unspecified Status: Acute Assessment and Plan: Patient drinks 1-2 L vodka daily. He has a history of delirium tremens with previous withdrawals. He has active hallucinations, restless leg, and tremors at this time. He reports interest in alcohol cessation. He states he previously used Qanon which was beneficial. CIWA protocol Seizure precautions Ativan 1 mg q6hr (will continue to taper ativan) Continue thiamine, folic acid, and multivitamin Encouraged alcohol cessation (5) Cirrhosis: Qualifiers: Ascites presence: without ascites Hepatic cirrhosis type: alcoholic cirrhosis Qualified Code(s): K70.30 - Alcoholic cirrhosis of liver without ascites Code(s): K74.60 - Unspecified cirrhosis of liver Status: Acute Assessment and Plan: Follows with [facility] Hepatology. Patient states his next appointment is scheduled in April. CT scan showed cirrhosis without ascites. Cirrhosis also seen on US. MELD 6. Cirrhosis is related to alcohol. 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 Patient will need dental follow up for teeth extraction before repair can be done. Continue home pain medications Time Spent With Patient Time with patient: 25 - 35 minutes Subjective Date/time seen: 01/16/24 06:50 Interval history: Patient is a 38 year old male with past medical history of alcohol dependence, cirrhosis, ball esophagus, esophageal varices, GI bleed, and chronic left hip fracture presented to the ED for coffee ground emesis, abdominal distension, and right upper quadrant abdominal pain with radiation to the
[2024-01-16] MEDS: THIAMINE HCL 100 MG TABLET PO (08:42)
[2024-01-16] MEDS: BACLOFEN 5 MG TABLET 15 MG PO ×3 (08:42→18:03)
[2024-01-16] MEDS: busPIRone HCL 5 MG TABLET PO ×2 (08:42→18:03)
[2024-01-16] MEDS: rifAXIMin 550 MG TABLET PO ×2 (08:43→21:12)
[2024-01-16] MEDS: SPIRONOLACTONE 50 MG TABLET 100 MG PO (08:43)
[2024-01-16] MEDS: QUEtiapine FUMARATE 25 MG TABLET 12.5 MG PO ×3 (08:43→18:04)
[2024-01-16] MEDS: MAGNESIUM OXIDE 400 MG TABLET PO (08:43)
[2024-01-16] MEDS: PRAZOSIN HCL 1 MG CAPSULE PO ×4 (08:43→21:12)
[2024-01-16] MEDS: buPROPion HCL 100 MG TABLET PO ×3 (08:45→18:04)
[2024-01-16] MEDS: FERROUS SULFATE 325 MG TABLET DR BY MOUTH (08:45)
[2024-01-16] MEDS: PANTOPRAZOLE 40 MG TABLET PO (08:45)
[2024-01-16] MEDS: hydrOXYzine HCL 25 MG TABLET PO ×3 (08:45→18:03)
[2024-01-16] MEDS: POTASSIUM CHLORIDE 20 MEQ ER TABLET PO (08:45)
[2024-01-16] MEDS: FOLIC ACID 1 MG TABLET PO (08:45)
[2024-01-16] MEDS: PROPRANOLOL HCL 10 MG TABLET PO ×2 (08:46→21:12)
[2024-01-16] MEDS: FUROSEMIDE 40 MG TABLET PO ×2 (08:46→18:03)
[2024-01-16] MEDS: ENOXAPARIN 40 MG/0.4 ML SYRINGE SUB-Q (08:47)
[2024-01-16] MEDS: CHOLECALCIFEROL 1,000 UNITS TABLET 5000 UNITS PO (08:47)
[2024-01-16] MEDS: CALCIUM CARBONATE (TUMS) 500 MG (200 MG ELEMENTAL) PO ×3 (08:47→18:03)
[2024-01-16 12:01] LABS: Glucose Point of Care 111 mg/dl (65-105)
--- NOTE | 2024-01-16 12:15 | PC.NURSE ---
call to care coordination for consult to crisis to come eval patient
--- NOTE | 2024-01-16 16:14 | PCDIET ---
Walked in halls with pt, he used a wheeled walker and made a full lap around nurse's unit with only contact guard assistance
[2024-01-16 16:59] LABS: Glucose Point of Care 117 mg/dl (65-105)
[2024-01-16 17:04] LABS: Ammonia 17 umol/L (9-30)
[2024-01-16] MEDS: MELATONIN 3 MG TABLET PO (21:12)
[2024-01-16] MEDS: traZODone HCL 50 MG TABLET PO (21:12)
[2024-01-17] VITALS (13 sets, daily range): BP systolic 116–133; BP diastolic 66–86; PULSE 64–81; RESP 14–16; TEMP 35.9–37.1; O2SAT 95–99
[2024-01-17] MEDS: LORazepam (*CRX) 1 MG TABLET PO ×4 (01:54→22:07)
[2024-01-17 02:17] LABS: Glucose Point of Care 112 mg/dl (65-105)
[2024-01-17 06:02] LABS: Hematocrit 45.2 % (42.0-52.0); Hemoglobin 15.4 g/dL (14.0-18.0); Mean Corpuscular HGB Conc 34.1 g/dl (32-36); Mean Corpuscular Hemoglobin 31.8 pg (26-34); Mean Corpuscular Volume 93.2 fl (80-100); Mean Platelet Volume 11.8 fl (7.4-10.4); Platelet Count Result 154 k/mm3 (150-375); Red Blood Count 4.85 M/mm3 (4.6-6.20); Red Cell Distribution Width 12.7 % (11.5-14.5); White Blood Count 8.9 K/mm3 (4.5-10.0)
[2024-01-17] MEDS: SUCRALFATE SUSP 100 MG/ML 10 ML UDC 1000 MG PO ×2 (06:09→17:00)
[2024-01-17 06:11] LABS: Alanine Aminotransferase 19 U/L (6-50); Albumin Level 4.2 g/dL (3.5-5.1); Alkaline Phosphatase 67 U/L (38-126); Anion Gap 10 mmol/L (8-16); Aspartate Amino Transferase 23 U/L (17-59); Bilirubin,Total 0.5 mg/dL (0.2-1.3); Blood Urea Nitrogen 12 mg/dL (9-20); Calcium 9.6 mg/dL (8.4-10.2); Carbon Dioxide 23 mmol/L (22-30); Chloride 104 mmol/L (98-107); Estimated CRCL calculation 133 ml/min; Estimated Glomerular Filt Rate > 60; Glucose 100 mg/dL (65-110); Magnesium 1.7 mg/dL (1.6-2.3); Potassium 3.4 mmol/L (3.4-5.0); Sodium 137 mmol/L (137-145)
[2024-01-17 06:14] LABS: Glucose Point of Care 109 mg/dl (65-105)
--- NOTE | 2024-01-17 06:59 | PM.IMPN ---
Progress Note: A&P Assessment and Plan (1) Hepatic encephalopathy: Code(s): K72.90 - Hepatic failure, unspecified without coma Status: Acute Assessment and Plan: Patient remains AOx4. Well controlled on home rifaximin 550 mg BID. Ammonia level 31 on admission, now WNL. Patient is incontinent due to ongoing diarrhea. Will hold lactulose at this time and continue to monitor ammonia level. Continue rifaximin Monitor ammonia (2) Coffee ground emesis: Code(s): K92.0 - Hematemesis Status: Acute Assessment and Plan: Concern for upper GI bleed. Patient has history of esophageal varices and portal hypertension s/p banding of varicies in 2020. EGD 06/2022: esophageal varices and barretts esophagus without dysplasia. Prior to admission patient had one episode of coffee ground emesis. This has not occurred since admission. He had one dark tarry stool yesterday. There is no evidence of active bleeding at this time. H&H remain stable. EGD revealed no active bleeding and barretts esophagus without dysplasia. He has had multiple bowel movements without hematochezia or melena and denies nausea/vomiting. Protonix 40 mg q12 Continue to monitor H&H (3) Hallucinations: Code(s): R44.3 - Hallucinations, unspecified Status: Acute Assessment and Plan: Active visual, auditory and tactile hallucinations in the setting of alcohol withdrawal, however patient has known psych history. He continues to report that the auditory hallucinations are telling him to kill himself. He states he does not actively want to harm himself at this time. He notes he has harmed himself in the past due to voices tell him to do so. He reports these as minor injuries such as scratching himself to the point of bleeding because the voices told him to. [facility] S[facility] ordered Nursing made aware (4) Alcohol withdrawal: Qualifiers: Complication of substance-induced condition: uncomplicated Qualified Code(s): F10.930 - Alcohol use, unspecified with withdrawal, uncomplicated Code(s): F10.939 - Alcohol use, unspecified with withdrawal, unspecified Status: Acute Assessment and Plan: Patient drinks 1-2 L vodka daily. He has a history of delirium tremens with previous withdrawals. He has active hallucinations, restless leg, and tremors at this time. He reports interest in alcohol cessation. He states he previously used Qanon which was beneficial. [facility] protocol Seizure precautions Ativan 1 mg q8hr (will continue to taper ativan) Continue thiamine, folic acid, and multivitamin Encouraged alcohol cessation (5) Cirrhosis: Qualifiers: Ascites presence: without ascites Hepatic cirrhosis type: alcoholic cirrhosis Qualified Code(s): K70.30 - Alcoholic cirrhosis of liver without ascites Code(s): K74.60 - Unspecified cirrhosis of liver Status: Acute Assessment and Plan: Follows with [facility] Hepatology. Patient states his next appointment is scheduled in April. CT scan showed cirrhosis without ascites. Cirrhosis also seen on US. MELD 6. Cirrhosis is related to alcohol. 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 Patient will need dental follow up for teeth extraction before repair can be done. Continue home pain medications Time Spent With Patient Time with patient: 25 - 35 minutes Subjective Date/time seen: 01/17/24 06:59 Interval history: Patient is a 38 year old male with past medical history of alcohol dependence, cirrhosis, Holt esophagus, esophageal varices, GI bleed, and chronic left hip f
[2024-01-17] MEDS: rifAXIMin 550 MG TABLET PO ×2 (08:27→22:07)
[2024-01-17] MEDS: PROPRANOLOL HCL 10 MG TABLET PO ×2 (08:27→22:07)
[2024-01-17] MEDS: PANTOPRAZOLE 40 MG TABLET PO (08:27)
[2024-01-17] MEDS: CHOLECALCIFEROL 1,000 UNITS TABLET 5000 UNITS PO (08:28)
[2024-01-17] MEDS: SPIRONOLACTONE 50 MG TABLET 100 MG PO (08:28)
[2024-01-17] MEDS: busPIRone HCL 5 MG TABLET PO ×2 (08:28→17:00)
[2024-01-17] MEDS: BACLOFEN 5 MG TABLET 15 MG PO ×3 (08:28→17:00)
[2024-01-17] MEDS: hydrOXYzine HCL 25 MG TABLET PO ×3 (08:28→17:00)
[2024-01-17] MEDS: PRAZOSIN HCL 1 MG CAPSULE PO ×4 (08:28→22:07)
[2024-01-17] MEDS: CALCIUM CARBONATE (TUMS) 500 MG (200 MG ELEMENTAL) PO (08:28)
[2024-01-17] MEDS: POTASSIUM CHLORIDE 20 MEQ ER TABLET PO (08:29)
[2024-01-17] MEDS: THIAMINE HCL 100 MG TABLET PO (08:29)
[2024-01-17] MEDS: QUEtiapine FUMARATE 25 MG TABLET 12.5 MG PO ×3 (08:29→17:00)
[2024-01-17] MEDS: FUROSEMIDE 40 MG TABLET PO ×2 (08:29→17:01)
[2024-01-17] MEDS: FOLIC ACID 1 MG TABLET PO (08:29)
[2024-01-17] MEDS: FERROUS SULFATE 325 MG TABLET DR BY MOUTH (08:29)
[2024-01-17] MEDS: MAGNESIUM OXIDE 400 MG TABLET PO (08:29)
[2024-01-17] MEDS: ENOXAPARIN 40 MG/0.4 ML SYRINGE SUB-Q (08:53)
[2024-01-17] MEDS: buPROPion HCL 100 MG TABLET PO ×3 (08:53→17:01)
[2024-01-17 12:05] LABS: Glucose Point of Care 114 mg/dl (65-105)
[2024-01-17] MEDS: LIDOCAINE 5% PATCH 1 PATCH TRANSDERM (12:59)
[2024-01-17] MEDS: HYDROcodone/acetaminophen (*CRX) 10-325 MG TABLET 1 TAB PO ×2 (13:53→22:06)
--- NOTE | 2024-01-17 15:32 | WPDCNPSYCH ---
[facility] Data of Consult Date/Time: 01/17/24 15:33 Requesting Physician: Manuel Dorsey MD Primary Care Provider: Teodoro Lopez MD Consult Narrative Narrative: CHIEF COMPLAINT/REASON FOR PSYCHIATRIC CONSULTATION: Patient is a 38 y/o gentleman who Farzaneh Perez PA-C has requested a call for consult to both Psychiatry and [facility] for command hallucinations to kill himself. DISCUSSION: The call for consultation was written; but, I have had no verbal report called to me by either the Attending Physician, the Physician Bone Glue Maker, Care Coordination, a Nurse, or a Staff Accountant. I accidentally discovered the patient in my workload list when I entered the Electronic Health Record to document on another patient. PLAN: I will submit a Nursing Care Order to have either the Attending Physician or the Physician Bone Glue Maker to call verbal report to me. Sincerely, Farrukh Kyle MD cellphone: [phone] [facility] Past Medical History Medical History Alcohol abuse Alcoholic hepatitis Holt's esophagus with esophagitis Chronic anemia Cirrhosis Depression with anxiety Esophageal varices Fracture of left hip GI bleed Secondary to bleeding varices. Tobacco abuse Surgical History Surgical History History of colonoscopy with polypectomy (05/25/22) Benign colon polyp, internal hemorrhoids. History of esophagogastroduodenoscopy (05/22/22) Nonbleeding esophageal varices, Holt esophagus without dysplasia, gastritis. Family History Family History Mother Liver disease Cirrhosis Grandparent Heart failure Heart attack Social History Social History Social History: Surrogate medical decision maker: Modetso Diaz, father. Code status: Full code. Smoking packs per day: 0.25 Smoking cigarettes per day: 5.0 Years smoked: 20 Smoking pack-years: 5.00 Smoking status: Current every day smoker Tobacco type: cigarettes Additional smoking assessment comments: Now smoking about 5 cigarettes a day while at a intermediate facility. T Alcohol intake: current Drinks per week: 120 Alcohol use details: Longstanding history of alcohol abuse. Substance use: current Substance use type: marijuana Do You Feel Safe in your Home?: Yes Lack of Transportation: No Lack of Food: Never True Current Housing: I Have Housing Concerned About Future Housing: No Difficulty Paying Gas/Electric Bills: No Difficulty Paying for Meds: No Currently Unemployed: No Education: Decline to Answer Difficulty w/ Childcare or Family Care: No Living arrangements: halfway Additional living arrangements comments: Currently at [facility] for rehab. Spiritual care concerns: No Meds Home Medications and Allergies Home Medications Medication Instructions Recorded Confirmed Type folic acid 1 mg tablet 1 mg PO DAILY #30 tabs 04/11/21 01/14/24 Rx thiamine HCl (vitamin B1) 100 mg 100 mg PO DAILY 04/20/21 01/14/24 History tablet melatonin 3 mg tablet 3 mg PO HS 09/15/21 01/14/24 History ferrous sulfate 325 mg (65 mg 325 mg PO DAILY 11/12/21 01/14/24 History iron) tablet rifaximin 550 mg tablet (Xifaxan) 550 mg PO BID 11/12/21 01/14/24 History acetaminophen 500 mg tablet 1,000 mg PO Q8H PRN Pain 06/24/22 01/14/24 History (Acetaminophen Extra Strength) calcium carbonate 500 mg calcium 500 mg PO TID 06/24/22 01/14/24 History (1,250 mg) chewable tablet cholecalciferol (vitamin D3) 125 125 mcg PO DAILY 06/24/22 01/14/24 History mcg (5,000 unit) tablet potassium chloride 20 mEq 20 meq PO DAILY 06/24/22 01/14/24 History tablet,extended release furosemide 20 mg tablet (Lasix) 40 mg PO BID 12/14/22 01/14/24 History spironolactone 50 mg tablet 1
[2024-01-17] MEDS: DICLOFENAC SODIUM 1% 100 GM GEL (*BKC) 1 APPLIC TOPICAL (17:01)
[2024-01-17 17:45] LABS: Ammonia 24 umol/L (9-30)
[2024-01-17 18:14] LABS: Glucose Point of Care 152 mg/dl (65-105)
--- NOTE | 2024-01-17 20:56 | PC.NURSE ---
At 2039 this nurse received a vocera call that the patient fell in the bathroom. Walked into patient room and found the patient sitting up on his bottom and he answered correctly the orientation questions. With the aid of the tech patient was stood up and using a walker escorted back to bed. property management supervisor and Dr. Dorsey were both notified that this fall occurred.
[2024-01-17] MEDS: MELATONIN 3 MG TABLET PO (22:07)
[2024-01-17] MEDS: traZODone HCL 50 MG TABLET PO (22:07)
[2024-01-18] VITALS (15 sets, daily range): BP systolic 102–128; BP diastolic 66–84; PULSE 65–81; RESP 16–18; TEMP 35.8–37; O2SAT 95–98
[2024-01-18 00:02] LABS: Glucose Point of Care 91 mg/dl (65-105)
[2024-01-18 05:57] LABS: Hematocrit 44.3 % (42.0-52.0); Hemoglobin 14.9 g/dL (14.0-18.0); Mean Corpuscular HGB Conc 33.6 g/dl (32-36); Mean Corpuscular Hemoglobin 31.4 pg (26-34); Mean Corpuscular Volume 93.3 fl (80-100); Mean Platelet Volume 11.5 fl (7.4-10.4); Platelet Count Result 159 k/mm3 (150-375); Red Blood Count 4.75 M/mm3 (4.6-6.20); Red Cell Distribution Width 12.7 % (11.5-14.5); White Blood Count 8.6 K/mm3 (4.5-10.0)
[2024-01-18] MEDS: SUCRALFATE SUSP 100 MG/ML 10 ML UDC 1000 MG PO ×3 (06:02→16:45)
[2024-01-18] MEDS: LORazepam (*CRX) 1 MG TABLET PO (06:02)
[2024-01-18 06:07] LABS: Glucose Point of Care 103 mg/dl (65-105)
[2024-01-18 06:10] LABS: Alanine Aminotransferase 19 U/L (6-50); Albumin Level 4.2 g/dL (3.5-5.1); Alkaline Phosphatase 67 U/L (38-126); Anion Gap 9 mmol/L (8-16); Aspartate Amino Transferase 22 U/L (17-59); Bilirubin,Total 0.6 mg/dL (0.2-1.3); Blood Urea Nitrogen 14 mg/dL (9-20); Calcium 9.2 mg/dL (8.4-10.2); Carbon Dioxide 23 mmol/L (22-30); Chloride 104 mmol/L (98-107); Estimated CRCL calculation 117 ml/min; Estimated Glomerular Filt Rate > 60; Glucose 98 mg/dL (65-110); Magnesium 1.8 mg/dL (1.6-2.3); Potassium 3.2 mmol/L (3.4-5.0); Sodium 136 mmol/L (137-145)
--- NOTE | 2024-01-18 07:29 | PM.IMPN ---
Progress Note: A&P Assessment and Plan (1) Hepatic encephalopathy: Code(s): K72.90 - Hepatic failure, unspecified without coma Status: Acute Assessment and Plan: Patient remains AOx4. Well controlled on home rifaximin 550 mg BID. Ammonia level 31 on admission, now WNL. Patient is incontinent due to ongoing diarrhea. Will hold lactulose at this time and continue to monitor ammonia level. Continue rifaximin Monitor ammonia (2) Coffee ground emesis: Code(s): K92.0 - Hematemesis Status: Acute Assessment and Plan: Concern for upper GI bleed. Patient has history of esophageal varices and portal hypertension s/p banding of varicies in 2020. EGD 06/2022: esophageal varices and barretts esophagus without dysplasia. Prior to admission patient had one episode of coffee ground emesis. This has not occurred since admission. He had one dark tarry stool yesterday. There is no evidence of active bleeding at this time. H&H remain stable. EGD revealed no active bleeding and barretts esophagus without dysplasia. He has had multiple bowel movements without hematochezia or melena and denies nausea/vomiting. Protonix 40 mg q12 Continue to monitor H&H (3) Hallucinations: Code(s): R44.3 - Hallucinations, unspecified Status: Acute Assessment and Plan: Patient was having active visual, auditory and tactile hallucinations in the setting of alcohol withdrawal, however patient has known psych history. He previously reported that the auditory hallucinations were telling him to kill himself. He states that he did not actively want to harm himself at that time. He notes he has harmed himself in the past due to voices tell him to do so. He reports these as minor injuries such as scratching himself to the point of bleeding because the voices told him to. He denies auditory hallucinations at this time. Sitter has been removed. Psychiatry was consulted and states that these hallucinations are likely chronic based on patients home medications. Attempted to contact nursing facility to confirm however was unable to contact them. (4) Alcohol withdrawal: Qualifiers: Complication of substance-induced condition: uncomplicated Qualified Code(s): F10.930 - Alcohol use, unspecified with withdrawal, uncomplicated Code(s): F10.939 - Alcohol use, unspecified with withdrawal, unspecified Status: Acute Assessment and Plan: Patient drinks 1-2 L vodka daily. He has a history of delirium tremens with previous withdrawals. He has active hallucinations, restless leg, and tremors at this time. He reports interest in alcohol cessation. He states he previously used Qanon which was beneficial. [facility] protocol Seizure precautions Ativan PRN for CIWA >10 Continue thiamine, folic acid, and multivitamin Encouraged alcohol cessation (5) Cirrhosis: Qualifiers: Ascites presence: without ascites Hepatic cirrhosis type: alcoholic cirrhosis Qualified Code(s): K70.30 - Alcoholic cirrhosis of liver without ascites Code(s): K74.60 - Unspecified cirrhosis of liver Status: Acute Assessment and Plan: Follows with [facility] Hepatology. Patient states his next appointment is scheduled in April. CT scan showed cirrhosis without ascites. Cirrhosis also seen on US. MELD 6. Cirrhosis is related to alcohol. 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 Patient will need dental follow up for teeth extraction before repair can be done. Continue home pain medications Time Spent With Patient Time with patient: 25 - 35 minutes Subjective Date/time seen: 01/18/24 07:2
[2024-01-18 08:11] LABS: Glucose Point of Care 94 mg/dl (65-105)
[2024-01-18] MEDS: BACLOFEN 5 MG TABLET 15 MG PO ×3 (08:49→16:45)
[2024-01-18] MEDS: CALCIUM CARBONATE (TUMS) 500 MG (200 MG ELEMENTAL) PO ×2 (08:49→16:46)
[2024-01-18] MEDS: MAGNESIUM OXIDE 400 MG TABLET PO (08:50)
[2024-01-18] MEDS: FUROSEMIDE 40 MG TABLET PO ×2 (08:50→16:45)
[2024-01-18] MEDS: busPIRone HCL 5 MG TABLET PO ×2 (08:50→16:45)
[2024-01-18] MEDS: PROPRANOLOL HCL 10 MG TABLET PO ×2 (08:50→20:04)
[2024-01-18] MEDS: CHOLECALCIFEROL 1,000 UNITS TABLET 5000 UNITS PO (08:50)
[2024-01-18] MEDS: SPIRONOLACTONE 50 MG TABLET 100 MG PO (08:50)
[2024-01-18] MEDS: PRAZOSIN HCL 1 MG CAPSULE PO ×4 (08:50→20:06)
[2024-01-18] MEDS: rifAXIMin 550 MG TABLET PO ×2 (08:50→20:05)
[2024-01-18] MEDS: FERROUS SULFATE 325 MG TABLET DR BY MOUTH (08:51)
[2024-01-18] MEDS: PANTOPRAZOLE 40 MG TABLET PO (08:51)
[2024-01-18] MEDS: POTASSIUM CHLORIDE 20 MEQ ER TABLET PO (08:51)
[2024-01-18] MEDS: FOLIC ACID 1 MG TABLET PO (08:51)
[2024-01-18] MEDS: THIAMINE HCL 100 MG TABLET PO (08:51)
[2024-01-18] MEDS: hydrOXYzine HCL 25 MG TABLET PO ×3 (08:51→16:45)
[2024-01-18] MEDS: QUEtiapine FUMARATE 25 MG TABLET 12.5 MG PO ×3 (08:51→16:45)
[2024-01-18] MEDS: LIDOCAINE 5% PATCH 1 PATCH TRANSDERM (08:52)
[2024-01-18] MEDS: buPROPion HCL 100 MG TABLET PO ×3 (08:52→16:45)
[2024-01-18] MEDS: ENOXAPARIN 40 MG/0.4 ML SYRINGE SUB-Q (08:52)
[2024-01-18] MEDS: HYDROcodone/acetaminophen (*CRX) 10-325 MG TABLET 1 TAB PO ×2 (13:01→20:05)
[2024-01-18 13:25] LABS: Glucose Point of Care 115 mg/dl (65-105)
[2024-01-18 17:24] LABS: Ammonia < 9 umol/L (9-30)
[2024-01-18 19:21] LABS: Glucose Point of Care 143 mg/dl (65-105)
[2024-01-18] MEDS: traZODone HCL 50 MG TABLET PO (20:04)
[2024-01-18] MEDS: MELATONIN 3 MG TABLET PO (20:05)
[2024-01-18] MEDS: LORazepam INJ (*CRX) 2 MG/ML VIAL IV PUSH (20:06)
[2024-01-19] VITALS: BP 109/69; PULSE 65; PULSE 72
[2024-01-19 00:46] LABS: Glucose Point of Care 90 mg/dl (65-105)
[2024-01-19 04:00] VITALS: PULSE 68
[2024-01-19 06:00] VITALS: BP 110/69; PULSE 64; RESP 16; TEMP 36.6; O2SAT 99
[2024-01-19 06:00] LABS: Magnesium 1.9 mg/dL (1.6-2.3)
[2024-01-19] MEDS: SUCRALFATE SUSP 100 MG/ML 10 ML UDC 1000 MG PO ×2 (06:22→12:34)
[2024-01-19] MEDS: HYDROcodone/acetaminophen (*CRX) 10-325 MG TABLET 1 TAB PO (06:22)
[2024-01-19 07:05] LABS: Glucose Point of Care 105 mg/dl (65-105)
[2024-01-19 08:00] VITALS: PULSE 70
[2024-01-19] MEDS: CHOLECALCIFEROL 1,000 UNITS TABLET 5000 UNITS PO (08:39)
[2024-01-19 08:40] VITALS: PULSE 64
[2024-01-19] MEDS: BACLOFEN 5 MG TABLET 15 MG PO ×2 (08:40→12:34)
[2024-01-19] MEDS: PRAZOSIN HCL 1 MG CAPSULE PO ×2 (08:40→12:34)
[2024-01-19] MEDS: THIAMINE HCL 100 MG TABLET PO (08:40)
[2024-01-19] MEDS: busPIRone HCL 5 MG TABLET PO (08:40)
[2024-01-19] MEDS: PANTOPRAZOLE 40 MG TABLET PO (08:40)
[2024-01-19] MEDS: PROPRANOLOL HCL 10 MG TABLET PO (08:40)
[2024-01-19] MEDS: CALCIUM CARBONATE (TUMS) 500 MG (200 MG ELEMENTAL) PO (08:40)
[2024-01-19] MEDS: hydrOXYzine HCL 25 MG TABLET PO ×2 (08:41→12:34)
[2024-01-19] MEDS: FOLIC ACID 1 MG TABLET PO (08:41)
[2024-01-19] MEDS: buPROPion HCL 100 MG TABLET PO ×2 (08:41→12:34)
[2024-01-19] MEDS: rifAXIMin 550 MG TABLET PO (08:41)
[2024-01-19] MEDS: QUEtiapine FUMARATE 25 MG TABLET 12.5 MG PO ×2 (08:41→12:34)
[2024-01-19] MEDS: MAGNESIUM OXIDE 400 MG TABLET PO (08:41)
[2024-01-19] MEDS: FERROUS SULFATE 325 MG TABLET DR BY MOUTH (08:41)
[2024-01-19] MEDS: FUROSEMIDE 40 MG TABLET PO (08:41)
[2024-01-19] MEDS: POTASSIUM CHLORIDE 20 MEQ ER TABLET PO (08:41)
[2024-01-19] MEDS: SPIRONOLACTONE 50 MG TABLET 100 MG PO (08:41)
[2024-01-19] MEDS: ENOXAPARIN 40 MG/0.4 ML SYRINGE SUB-Q (08:42)
--- NOTE | 2024-01-19 11:25 | PM.DS ---
DS: Admitting Diagnosis Discharge Date 01/19/24 Admitting Diagnosis coffee ground emesis, alcohol withdrawal DS: Discharge Diagnosis Discharge Diagnosis (1) Hepatic encephalopathy: Code(s): K72.90 - Hepatic failure, unspecified without coma Status: Acute (2) Coffee ground emesis: Code(s): K92.0 - Hematemesis Status: Acute (3) Hallucinations: Code(s): R44.3 - Hallucinations, unspecified Status: Acute (4) Alcohol withdrawal: Qualifiers: Complication of substance-induced condition: uncomplicated Qualified Code(s): F10.930 - Alcohol use, unspecified with withdrawal, uncomplicated Code(s): F10.939 - Alcohol use, unspecified with withdrawal, unspecified Status: Acute (5) Cirrhosis: Qualifiers: Ascites presence: without ascites Hepatic cirrhosis type: alcoholic cirrhosis Qualified Code(s): K70.30 - Alcoholic cirrhosis of liver without ascites Code(s): K74.60 - Unspecified cirrhosis of liver Status: Acute (6) Fracture of left hip: Code(s): S72.002A - Fracture of unspecified part of neck of left femur, initial encounter for closed fracture Status: Chronic DS: Summary Hospital Course Hospital Course: This is a 38-year-old with past medical history of alcohol dependence, hepatics cirrhosis, esophageal varices, no union hip fracture, PTSD and currently resides at a [facility] that was brought in to the ED for evaluation of coffee-ground emesis. He currently stays a [facility]. He says he will sign himself out to be with his friends which is when he drinks the 1-2 L of vodka. He was previously sober for 6 months due to his hospital admission for the hip fracture. He notes that he wishes he stayed sober and thinks he needs new friends because when he is with them they want to drink. He states he has hallucinations of people crawling on the floor and faces peaking through the yepez that is associated with his PTSD. He does have a history of command hallucinations. Originally patient's hallucinations were thought to be due from alcohol withdrawal. Psychiatry was consulted and due to patient's history of hallucinations and the fact that he was not currently having any demand hallucinations at the time psychiatry was involved, psychiatry okayed him for discharge. His Hemoccult tests here was negative. GI consulted for further evaluation. EGD performed on 01/14/2024 which revealed Holt's esophagus without dysphagia, gastritis and gastric retention. Is recommended that he use long-term PPI and discontinue alcohol consumption. Also recommend a repeat EGD in 1 year. Patient did not have any further episodes of emesis during hospitalization. Patient follows with [facility] hepatology for his cirrhosis. Recommend continuing this outpatient treatment. Time Spent with Patient Time attestation: Total time spent providing and/or coordinating discharge services: Exam Narrative: GENERAL: Comfortable, no acute distress HENMT: moist mucous membranes EYES: EOM intact b/l NECK: no lymphadenopathy RESPIRATORY: clear to auscultation, no increased respiratory effort CARDIO: Regular rate and rhythm GI: soft, nontender, bowel sounds present, distended, striae present SKIN/EXTREMITIES: no rashes, no edema, no redness or tenderness NEURO: PROM intact, answers questions appropriately, A&O x4 DS: Data Data Completed and Pending Labs on day of discharge: Labs from last 24 hours 01/19/24 01/19/24 01/19/24 06:59 05:18 00:43 POC Capillary Glucose 105 90 Magnesium 1.9 Ammonia 01/18/24 01/18/24 01/18/24 19:19 16:58 12:58 POC Capillary Glucose 143 H 115 H Magnesium Ammonia < 9 L Discharge Plan Discharge Attending physician on discharge: Ashish Garcia Consulting providers: Lawrence Roper; Eric Oconnell; Farrukh Kyle Discharging Clinician: Parisa Barlow Patient Dispositio
[2024-01-19 12:00] VITALS: PULSE 56
[2024-01-19 12:50] LABS: SARS-CoV-2 RNA PCR Negative (Negative)
== END 2024-01-19 13:35 | DRG 897 ==
LOC: ANHED 20:33 → ANH2MED 21:43
PROVIDERS: Internal Medicine Critical Care Medicine; Internal Medicine Gastroenterology; Nurse Practitioner Family; Student in an Organized Health Care Education/Training Program; Admitting Provider Internal Medicine; Emergency Provider Physician Assistant; PCP Hospitalist; Visit Provider Family Medicine
PROC: 0DJ08ZZ Inspection of Upper Intestinal Tract, Via Natural or Artificial Opening Endoscopic (ICD-10-PCS; CPT 43235; principal; 2024-01-14 15:30)
DX: F10.239 Alcohol dependence with withdrawal, unspecified (principal); K92.0 Hematemesis; K76.6 Portal hypertension; S72.002K Fracture of unspecified part of neck of left femur, subsequent encounter for closed fracture with nonunion; K70.30 Alcoholic cirrhosis of liver without ascites; K76.82 Hepatic encephalopathy; K72.90 Hepatic failure, unspecified without coma; K22.70 Barrett's esophagus without dysplasia; K29.70 Gastritis, unspecified, without bleeding; K31.84 Gastroparesis; D69.6 Thrombocytopenia, unspecified; R19.7 Diarrhea, unspecified; F43.10 Post-traumatic stress disorder, unspecified; F32.A Depression, unspecified; F41.9 Anxiety disorder, unspecified; F17.210 Nicotine dependence, cigarettes, uncomplicated; Z20.822 Contact with and (suspected) exposure to COVID-19; Z11.52 Encounter for screening for COVID-19; Z86.010 Personal history of colon polyps
CPT/HCPCS: 36415; 70450; 70491; 71045; 71260; 73502; 73562; 74177; 76705; 80048; 80053; 80307; 82140; 82948; 83690; 83735; 84132; 84484; 85025; 85027; 85055; 85610; 85730; 86850; 86900; 86901; 87635; 87637; 93005; 96361; 96365; 96366; 96375; 97161; 97165; 99285; A9270; C9113; G0378; J1650; J2060; J2354; J2405; J2704; J3411; J7030; J7120; Q9967

== ENCOUNTER 2024-02-05 14:18 | Emergency (ER) | payer MEDICARE, MEDICAID, SELFPAY ==
[2024-02-05] VITALS (14 sets, daily range): BP systolic 92–125; BP diastolic 61–81; PULSE 73–87; RESP 13–20; TEMP 36.6; O2SAT 95–99
--- NOTE | 2024-02-05 15:07 | ED.GENADULT ---
HPI - General Adult General Chief complaint: Alcohol Stated complaint: alcohol History of Present Illness HPI narrative: 38-year-old male who is well-known to staff presents to the emergency department via EMS. Patient called the ambulance after draining 1.75 L of Tequila. Patient states he has been drinking this amount of alcohol daily for quite some time. He has no complaints and informs me that he drinks like this because he is afraid of having alcohol withdrawal. Patient wanted to come to the emergency department today because sometimes when he drinks alcohol he gets aggressive and wanted to make sure he was in a safe environment. Related Data Home Medications Medication Instructions Recorded Confirmed thiamine HCl (vitamin B1) 100 mg 100 mg PO DAILY 04/20/21 01/14/24 tablet melatonin 3 mg tablet 10 mg PO HS 09/15/21 01/18/24 ferrous sulfate 325 mg (65 mg 325 mg PO DAILY 11/12/21 01/14/24 iron) tablet rifaximin 550 mg tablet (Xifaxan) 550 mg PO BID 11/12/21 01/14/24 acetaminophen 500 mg tablet 1,000 mg PO Q8H PRN Pain 06/24/22 01/14/24 (Acetaminophen Extra Strength) calcium carbonate 500 mg PO TID 06/24/22 01/14/24 cholecalciferol (vitamin D3) 125 125 mcg PO DAILY 06/24/22 01/14/24 mcg (5,000 unit) tablet potassium chloride 20 mEq 20 meq PO DAILY 06/24/22 01/14/24 tablet,extended release furosemide 20 mg tablet (Lasix) 40 mg PO BID 12/14/22 01/14/24 spironolactone 50 mg tablet 100 mg PO DAILY 12/14/22 01/14/24 (Aldactone) diclofenac sodium 1 % topical gel 2 g topical Q6H PRN Pain 12/15/23 01/14/24 lidocaine 5 % topical patch 1 patch transdermal DAILY 12/15/23 01/14/24 (Lidoderm) magnesium oxide 400 mg PO DAILY 12/15/23 01/14/24 propranolol 10 mg tablet 10 mg PO BID 12/15/23 01/14/24 quetiapine 25 mg tablet 12.5 mg PO TID 12/15/23 01/14/24 sucralfate 100 mg/mL oral 10 ml PO TID 12/15/23 01/14/24 suspension baclofen 10 mg tablet 15 mg PO TID 01/12/24 01/14/24 bupropion HCl 100 mg tablet 100 mg PO TID 01/12/24 01/14/24 buspirone 5 mg tablet 5 mg PO BID Anxiety 01/12/24 01/14/24 diazepam 5 mg tablet 5 mg PO Q12H 01/12/24 01/14/24 hydrocodone 10 mg-acetaminophen 1 tablet PO Q6H 01/12/24 01/14/24 325 mg tablet hydroxyzine HCl 25 mg tablet 25 mg PO TID Anxiety 01/12/24 01/14/24 lactulose 10 gram/15 mL oral 30 ml PO TID 01/12/24 01/14/24 solution meclizine 25 mg tablet 25 mg PO Q8H dizziness 01/12/24 01/14/24 ondansetron HCl 4 mg tablet 4 mg PO Q8H PRN nausea/vomiting 01/12/24 01/14/24 prazosin 1 mg capsule 1 mg PO QID 01/12/24 01/14/24 trazodone 50 mg tablet 50 mg PO QHS 01/12/24 01/14/24 Allergies Allergy/AdvReac Type Severity Reaction Status Date / Time peanut Allergy Severe Anaphylaxis Verified 01/14/24 09:28 mushroom AdvReac Unknown Verified 01/14/24 09:28 Review of Systems Review of Systems: Gen.: Denies fevers or chills Eyes: Denies eye pain or visual change ENT: Denies congestion Respiratory: Denies shortness of breath or cough CV: Denies chest pain or palpitations GI: Denies abdominal pain nausea, emesis or diarrhea denies burning, urgency, frequency or hematuria Musculoskeletal: Denies back pain or muscle pain Neuro: Denies numbness, tingling, weakness or focal weakness Skin: Denies rash Except as documented, all other systems reviewed and negative [facility] Past Medical History Medical History Alcohol abuse Alcoholic hepatitis Holt's esophagus with esophagitis Chronic anemia Cirrhosis Depression with anxiety Esophageal varices Fracture of left hip GI bleed Secondary to bleeding varices. Tobacco abuse Surgical History Surgical History History of colonoscopy with polypectomy (05/25/22) Benign colon polyp, internal hemorrhoids. History of esophagogastroduodenoscopy (05/22/22) Nonbleeding esophageal varices, Holt esophagus without dysplasia, gastrit
--- NOTE | 2024-02-05 22:06 | PC.NURSE ---
[facility] transporting patient back to alf. This RN told patient is confined to a wheelchair and needs assistance. Patient able to pivot to stretcher. [facility] still agreeable to transporting [facility] to [facility].
== END 2024-02-05 22:10 ==
PROVIDERS: Emergency Provider Emergency Medicine; PCP Hospitalist
DX: F10.129 Alcohol abuse with intoxication, unspecified (principal); Y90.9 Presence of alcohol in blood, level not specified; K70.10 Alcoholic hepatitis without ascites; K22.70 Barrett's esophagus without dysplasia; K20.90 Esophagitis, unspecified without bleeding; K74.60 Unspecified cirrhosis of liver; D64.9 Anemia, unspecified; F17.210 Nicotine dependence, cigarettes, uncomplicated; F41.8 Other specified anxiety disorders; Z86.010 Personal history of colon polyps
CPT/HCPCS: 99283

== ENCOUNTER 2024-02-20 05:19 | Emergency (ER) | payer MEDICARE, MEDICAID, SELFPAY ==
[2024-02-20 05:20] VITALS: BP 130/90; PULSE 81; RESP 20; TEMP 36.6; O2SAT 95
--- NOTE | 2024-02-20 05:24 | ED.GENADULT ---
HPI - General Adult General Chief complaint: Alcohol Stated complaint: ETOH W/D, VISUAL HALLUCINATIONS Time Seen by Provider: 02/20/24 05:22 History of Present Illness HPI narrative: This is a 38-year-old male with history of alcoholism schizophrenia presenting for possible alcohol withdrawal. Patient requested that he be sent to the ER from his nursing. He is concerned that he may be going into etoh withdrawal because he is hearing whispering voices. However the patient's last drink was earlier today. Patient is not suicidal or homicidal. He is not overtly psychotic cancer questions appropriately. No physical complaints at this time outside of some anxiety. Related Data Home Medications Medication Instructions Recorded Confirmed thiamine HCl (vitamin B1) 100 mg 100 mg PO DAILY 04/20/21 01/14/24 tablet melatonin 3 mg tablet 10 mg PO HS 09/15/21 01/18/24 ferrous sulfate 325 mg (65 mg 325 mg PO DAILY 11/12/21 01/14/24 iron) tablet rifaximin 550 mg tablet (Xifaxan) 550 mg PO BID 11/12/21 01/14/24 acetaminophen 500 mg tablet 1,000 mg PO Q8H PRN Pain 06/24/22 01/14/24 (Acetaminophen Extra Strength) calcium carbonate 500 mg PO TID 06/24/22 01/14/24 cholecalciferol (vitamin D3) 125 125 mcg PO DAILY 06/24/22 01/14/24 mcg (5,000 unit) tablet potassium chloride 20 mEq 20 meq PO DAILY 06/24/22 01/14/24 tablet,extended release furosemide 20 mg tablet (Lasix) 40 mg PO BID 12/14/22 01/14/24 spironolactone 50 mg tablet 100 mg PO DAILY 12/14/22 01/14/24 (Aldactone) diclofenac sodium 1 % topical gel 2 g topical Q6H PRN Pain 12/15/23 01/14/24 lidocaine 5 % topical patch 1 patch transdermal DAILY 12/15/23 01/14/24 (Lidoderm) magnesium oxide 400 mg PO DAILY 12/15/23 01/14/24 propranolol 10 mg tablet 10 mg PO BID 12/15/23 01/14/24 quetiapine 25 mg tablet 12.5 mg PO TID 12/15/23 01/14/24 sucralfate 100 mg/mL oral 10 ml PO TID 12/15/23 01/14/24 suspension baclofen 10 mg tablet 15 mg PO TID 01/12/24 01/14/24 bupropion HCl 100 mg tablet 100 mg PO TID 01/12/24 01/14/24 buspirone 5 mg tablet 5 mg PO BID Anxiety 01/12/24 01/14/24 diazepam 5 mg tablet 5 mg PO Q12H 01/12/24 01/14/24 hydrocodone 10 mg-acetaminophen 1 tablet PO Q6H 01/12/24 01/14/24 325 mg tablet hydroxyzine HCl 25 mg tablet 25 mg PO TID Anxiety 01/12/24 01/14/24 lactulose 10 gram/15 mL oral 30 ml PO TID 01/12/24 01/14/24 solution meclizine 25 mg tablet 25 mg PO Q8H dizziness 01/12/24 01/14/24 ondansetron HCl 4 mg tablet 4 mg PO Q8H PRN nausea/vomiting 01/12/24 01/14/24 prazosin 1 mg capsule 1 mg PO QID 01/12/24 01/14/24 trazodone 50 mg tablet 50 mg PO QHS 01/12/24 01/14/24 Allergies Allergy/AdvReac Type Severity Reaction Status Date / Time peanut Allergy Severe Anaphylaxis Verified 01/14/24 09:28 mushroom AdvReac Unknown Verified 01/14/24 09:28 [facility] Past Medical History Medical History Alcohol abuse Alcoholic hepatitis Holt's esophagus with esophagitis Chronic anemia Cirrhosis Depression with anxiety Esophageal varices Fracture of left hip GI bleed Secondary to bleeding varices. Tobacco abuse Surgical History Surgical History History of colonoscopy with polypectomy (05/25/22) Benign colon polyp, internal hemorrhoids. History of esophagogastroduodenoscopy (05/22/22) Nonbleeding esophageal varices, Holt esophagus without dysplasia, gastritis. Family History Family History Mother Liver disease Cirrhosis Grandparent Heart failure Heart attack Social History Social History Social History: Surrogate medical decision maker: Modesto Diaz, father. Code status: Full code. Smoking packs per day: 0.25 Smoking cigarettes per day: 5.0 Years smoked: 20 Smoking pack-years: 5.00 Smoking status: Current every day smo
--- NOTE | 2024-02-20 05:27 | ECG_ITS ---
SEE SCANNED COPY FOR CONFIRMED REPORT MTDD
[2024-02-20 05:30] VITALS: BP 130/90; PULSE 80; RESP 19; O2SAT 95
[2024-02-20 05:49] LABS: Basophils Absolute Auto 0.1 K/mm3 (0.0-0.1); Basophils Percent Auto 0.4 % (0.2-1.2); Eosinophils Percent Auto 0.4 % (0-4.4); Hematocrit 47.9 % (42.0-52.0); Hemoglobin 16.4 g/dL (14.0-18.0); Immature Granulocyte Absolute 0.11 K/mm3 (0.00-0.031); Lymphocytes Absolute Auto 1.71 K/mm3 (0.9-3.2); Lymphocytes Percent Auto 15.1 % (18.3-44.2); Mean Corpuscular HGB Conc 34.2 g/dl (32-36); Mean Corpuscular Hemoglobin 31.6 pg (26-34); Mean Corpuscular Volume 92.3 fl (80-100); Mean Platelet Volume 10.3 fl (7.4-10.4); Monocytes Absolute Auto 0.9 K/mm3 (0.1-0.6); Monocytes Percent Auto 8.2 % (2.6-8.5); Neutrophils Absolute Auto 8.5 K/mm3 (1.3-6.7); Neutrophils Percent Auto 74.9 % (45.5-73.1); Platelet Count Result 206 k/mm3 (150-375); Red Blood Count 5.19 M/mm3 (4.6-6.20); Red Cell Distribution Width 12.2 % (11.5-14.5); White Blood Count 11.3 K/mm3 (4.5-10.0)
[2024-02-20 05:59] LABS: Ethanol 135 mg/dL (<10)
[2024-02-20 06:00] LABS: Alanine Aminotransferase 17 U/L (6-50); Albumin Level 4.9 g/dL (3.5-5.1); Alkaline Phosphatase 70 U/L (38-126); Anion Gap 13 mmol/L (4-12); Aspartate Amino Transferase 23 U/L (17-59); Bilirubin,Total 0.5 mg/dL (0.2-1.3); Blood Urea Nitrogen 13 mg/dL (9-20); Calcium 9.2 mg/dL (8.4-10.2); Carbon Dioxide 19 mmol/L (22-30); Chloride 105 mmol/L (98-107); Estimated CRCL calculation 149 ml/min; Estimated Glomerular Filt Rate > 60; Glucose 121 mg/dL (65-110); Potassium 3.5 mmol/L (3.4-5.0); Sodium 137 mmol/L (137-145)
[2024-02-20 06:03] LABS: Amphetamine Screen Urine Negative (Negative); Barbiturate Screen Urine Negative (Negative); Benzodiazepines Screen Urine Positive (Negative); Cannabinoid Screen Urine Negative (Negative); Cocaine Screen Urine Negative (Negative); Methadone Screen Urine Negative (Negative); Opiate Screen Urine Positive (Negative); Phencyclidine Screen Urine Negative (Negative)
[2024-02-20 06:23] VITALS: BP 119/78; PULSE 79; RESP 15; O2SAT 95
== END 2024-02-20 06:41 ==
PROVIDERS: Emergency Provider Emergency Medicine; PCP Hospitalist
DX: R78.0 Finding of alcohol in blood (principal); Y90.6 Blood alcohol level of 120-199 mg/100 ml; K70.10 Alcoholic hepatitis without ascites; K22.70 Barrett's esophagus without dysplasia; K74.60 Unspecified cirrhosis of liver; D64.9 Anemia, unspecified; F20.9 Schizophrenia, unspecified; F41.8 Other specified anxiety disorders; F17.210 Nicotine dependence, cigarettes, uncomplicated; Z86.010 Personal history of colon polyps
CPT/HCPCS: 36415; 80053; 80307; 85025; 93005; 99283

== ENCOUNTER 2024-03-26 07:56 | Emergency (ER) | payer MEDICARE, MEDICAID, SELFPAY ==
[2024-03-26] VITALS (8 sets, daily range): BP systolic 104–142; BP diastolic 80–107; PULSE 74–88; RESP 15–20; TEMP 36.6–37; O2SAT 91–100
--- NOTE | ~2024-03-26 | XR_ITS ---
EXAMINATION: XR chest 2V 03/26/2024 08:32 INDICATION: Right upper quadrant pain PROCEDURE: 2 view chest COMPARISON: Comparison to multiple prior studies sequentially, with oldest reviewed study dated 12/14. FINDINGS: The lungs are clear. The cardiomediastinal silhouette is within normal limits. There are no pleural effusions. There is no pneumothorax suspected. IMPRESSION: 1: NO ACUTE CARDIOPULMONARY DISEASE. Reviewed, dictated and finalized at location B.
--- NOTE | ~2024-03-26 | CT_ITS ---
EXAMINATION: CT abdomen pelvis w con DATE: 03/26/2024 11:32 INDICATION: Right upper quadrant pain TECHNIQUE: Computed tomography (CT) of the abdomen and pelvis was performed with 100 cc Omnipaque 350 intravenous contrast. The dose-length product was 990.50 mGy-cm. Automated exposure control and iter ative reconstruction technique were employed. 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 Dependant ate lectasis. Heart size normal. There is gynecomastia. Cirrhosis of the liver. There is a small right ca rdiophrenic angle cyst. There is recanalization of the umbilical vein. The spleen, pancreas, adrenal glands and kidneys are unremarkable. Gallbladder is present. Nonobstructive bowel gas pattern. Small fat-containing umbilical hernia. No abnormal pelvic masses or fluid collections. No significant vascu lar abnormality. No lymphadenopathy. No acute osseous abnormality. IMPRESSION: 1. No acute abdominal abnormality. 2: Cirrhosis of the liver. 2: Gynecomastia. Reviewed, dictated and finalized at location B.
[2024-03-26 08:22] LABS: Basophils Absolute Auto 0.1 K/mm3 (0.0-0.1); Basophils Percent Auto 0.6 % (0.2-1.2); Eosinophils Absolute Auto 0.1 K/mm3 (0-0.3); Hemoglobin 16.5 g/dL (14.0-18.0); Immature Granulocyte Absolute 0.13 K/mm3 (0.00-0.031); Immature Granulocyte Percent A 1.1 % (0-0.5); Lymphocytes Percent Auto 14.2 % (18.3-44.2); Mean Corpuscular HGB Conc 34.4 g/dl (32-36); Mean Corpuscular Hemoglobin 31.6 pg (26-34); Mean Platelet Volume 9.7 fl (7.4-10.4); Monocytes Absolute Auto 1.1 K/mm3 (0.1-0.6); Monocytes Percent Auto 9.5 % (2.6-8.5); Neutrophils Absolute Auto 8.8 K/mm3 (1.3-6.7); Neutrophils Percent Auto 73.6 % (45.5-73.1); Platelet Count Result 202 k/mm3 (150-375); Red Blood Count 5.22 M/mm3 (4.6-6.20); Red Cell Distribution Width 12.5 % (11.5-14.5)
[2024-03-26 08:25] LABS: Appearance Urine Clear (Clear); Bilirubin Urine Negative (Negative); Blood Urine Negative (Negative); Color Urine Yellow (Yellow); Glucose Urine UA Negative (Negative); Ketones Urine Negative (Negative); Leukocyte Esterase Ur Negative LEU/UL (Negative); Nitrate Urine Negative (Negative); Protein Urine Negative (Negative); Specific Grav Ur 1.014 (1.001-1.035); Urobilinogen Urine 0.2 mg/dL (<2.0)
[2024-03-26 08:31] LABS: Alanine Aminotransferase 22 U/L (6-50); Albumin Level 4.7 g/dL (3.5-5.1); Alkaline Phosphatase 86 U/L (38-126); Anion Gap 10 mmol/L (4-12); Aspartate Amino Transferase 20 U/L (17-59); Bilirubin,Total 0.7 mg/dL (0.2-1.3); Blood Urea Nitrogen 15 mg/dL (9-20); Calcium 9.4 mg/dL (8.4-10.2); Carbon Dioxide 25 mmol/L (22-30); Chloride 103 mmol/L (98-107); Estimated CRCL calculation 103 ml/min; Estimated Glomerular Filt Rate > 60; Glucose 117 mg/dL (65-110); Lipase 59 U/L (23-300); Potassium 3.7 mmol/L (3.4-5.0); Sodium 138 mmol/L (137-145)
[2024-03-26 08:36] LABS: Add Urine Microscopic? NO
--- NOTE | 2024-03-26 11:47 | ED.ABDPAIN ---
HPI - Abdominal Pain General Chief Complaint: Abdominal Pain Stated Complaint: R sided abd pain Time Seen by Provider: 03/26/24 08:01 Source: patient Mode of arrival: EMS Limitations: no limitations History of Present Illness HPI narrative: 38-year-old assisted resident with a history of cirrhosis of the liver here with the complaints of right upper abdominal pain since yesterday. Patient states that he had similar symptoms when he had pneumonia. He states the pain gets worse with movement. He denies any cough or shortness of breath. He is on [place] at home for pain control. No history of nausea vomiting fever or chills to MD elicited complaint: abdominal pain Pertinent past history: none Onset (ago): day(s) (1) Pain Consistency: constant Location: RUQ Severity: moderate Quality: aching Radiation: RUQ Exacerbating factors: movement Relieving factors: rest Associated symptoms: denies other symptoms Related Data Home Medications Medication Instructions Recorded Confirmed thiamine HCl (vitamin B1) 100 mg 100 mg PO DAILY 04/20/21 01/14/24 tablet melatonin 3 mg tablet 10 mg PO HS 09/15/21 01/18/24 ferrous sulfate 325 mg (65 mg 325 mg PO DAILY 11/12/21 01/14/24 iron) tablet rifaximin 550 mg tablet (Xifaxan) 550 mg PO BID 11/12/21 01/14/24 acetaminophen 500 mg tablet 1,000 mg PO Q8H PRN Pain 06/24/22 01/14/24 (Acetaminophen Extra Strength) calcium carbonate 500 mg PO TID 06/24/22 01/14/24 cholecalciferol (vitamin D3) 125 125 mcg PO DAILY 06/24/22 01/14/24 mcg (5,000 unit) tablet potassium chloride 20 mEq 20 meq PO DAILY 06/24/22 01/14/24 tablet,extended release furosemide 20 mg tablet (Lasix) 40 mg PO BID 12/14/22 01/14/24 spironolactone 50 mg tablet 100 mg PO DAILY 12/14/22 01/14/24 (Aldactone) diclofenac sodium 1 % topical gel 2 g topical Q6H PRN Pain 12/15/23 01/14/24 lidocaine 5 % topical patch 1 patch transdermal DAILY 12/15/23 01/14/24 (Lidoderm) magnesium oxide 400 mg PO DAILY 12/15/23 01/14/24 propranolol 10 mg tablet 10 mg PO BID 12/15/23 01/14/24 quetiapine 25 mg tablet 12.5 mg PO TID 12/15/23 01/14/24 sucralfate 100 mg/mL oral 10 ml PO TID 12/15/23 01/14/24 suspension baclofen 10 mg tablet 15 mg PO TID 01/12/24 01/14/24 bupropion HCl 100 mg tablet 100 mg PO TID 01/12/24 01/14/24 buspirone 5 mg tablet 5 mg PO BID Anxiety 01/12/24 01/14/24 diazepam 5 mg tablet 5 mg PO Q12H 01/12/24 01/14/24 hydrocodone 10 mg-acetaminophen 1 tablet PO Q6H 01/12/24 01/14/24 325 mg tablet hydroxyzine HCl 25 mg tablet 25 mg PO TID Anxiety 01/12/24 01/14/24 lactulose 10 gram/15 mL oral 30 ml PO TID 01/12/24 01/14/24 solution meclizine 25 mg tablet 25 mg PO Q8H dizziness 01/12/24 01/14/24 ondansetron HCl 4 mg tablet 4 mg PO Q8H PRN nausea/vomiting 01/12/24 01/14/24 prazosin 1 mg capsule 1 mg PO QID 01/12/24 01/14/24 trazodone 50 mg tablet 50 mg PO QHS 01/12/24 01/14/24 Allergies Allergy/AdvReac Type Severity Reaction Status Date / Time peanut Allergy Severe Anaphylaxis Verified 03/26/24 08:05 mushroom AdvReac Unknown Verified 03/26/24 08:05 Review of Systems Review of Systems: All systems reviewed & are unremarkable except as noted in HPI and below Constitutional: Constitutional: Reports no additional constitutional complaints Eyes: Eyes: Reports no additional eye complaints ENT: Reports system reviewed and no additional complaints, except as documented Cardiovascular: Cardiovascular: Reports no additional cardiovascular complaints Respiratory: Respiratory: Reports as per HPI Gastrointestinal: Gastrointestinal: Reports as per HPI Musculoskeletal: Musculoskeletal: Reports no additional musculoskeletal complaints [facility] Past Medical History Medical History Alcohol abuse Alcoholic hepatitis Holt's esophagus with esophagitis Chronic anemia Cirrhosis Depression with anxiety Esophageal varices Fracture of left hip GI bleed Secondary to
== END 2024-03-26 12:25 ==
PROVIDERS: Emergency Provider Family Medicine; PCP Hospitalist
DX: R10.11 Right upper quadrant pain (principal); D64.9 Anemia, unspecified; K22.70 Barrett's esophagus without dysplasia; K20.90 Esophagitis, unspecified without bleeding; K74.60 Unspecified cirrhosis of liver; F41.8 Other specified anxiety disorders; F17.210 Nicotine dependence, cigarettes, uncomplicated; Z86.010 Personal history of colon polyps; Z79.899 Other long term (current) drug therapy; N62 Hypertrophy of breast
CPT/HCPCS: 36415; 71046; 74177; 80053; 81003; 83690; 85025; 99284; Q9967

== ENCOUNTER 2024-04-23 16:36 | Emergency (ER) | payer MEDICARE, MEDICAID, SELFPAY ==
--- NOTE | ~2024-04-23 | CT_ITS ---
EXAMINATION: CT abdomen pelvis w con DATE: 04/23/2024 17:47 INDICATION: Ventral hernia. Abdominal pain. TECHNIQUE: Computed tomography (CT) of the abdomen and pelvis was performed with 100 mL Omnipaque 350 intravenous contrast. Automated exposure control and iterative reconstruction technique were employe d. The dose-length product was 1049.59 mGy-cm. COMPARISON: None. FINDINGS: The visualized portions of the lung bases demonstrate mild atelectasis. No pleural effusion . The heart size is normal. No pericardial effusion. There is bilateral gynecomastia. The liver demon strates a nodular surface contour, consistent with cirrhosis. The gallbladder and spleen are normal. There are periumbilical varices. There are paraesophageal varices. The pancreas, adrenal glands, and kidneys are normal. There are no dilated loops of bowel. There is an umbilical hernia containing fat. There is prominent fat in the inguinal canals that may be hernias. There are no dilated loops of bow el. The appendix is normal. There are no pathologically enlarged lymph nodes. There is no free intrap eritoneal fluid. There is an old fracture of left femoral neck with nonunion. There is mild lumbar sp ondylosis. IMPRESSION: 1. Umbilical hernia containing fat. 2. Cirrhosis of the liver with portal venous hypertension. Reviewed, dictated and finalized at location E.
[2024-04-23 16:38] VITALS: BP 155/109; PULSE 95; RESP 19; TEMP 36.7; O2SAT 96
[2024-04-23 17:05] LABS: Basophils Absolute Auto 0.1 K/mm3 (0.0-0.1); Basophils Percent Auto 0.6 % (0.2-1.2); Eosinophils Absolute Auto 0.1 K/mm3 (0-0.3); Eosinophils Percent Auto 1.2 % (0-4.4); Hematocrit 45.6 % (42.0-52.0); Hemoglobin 15.9 g/dL (14.0-18.0); Immature Granulocyte Percent A 0.9 % (0-0.5); Lymphocytes Percent Auto 21.4 % (18.3-44.2); Mean Corpuscular HGB Conc 34.9 g/dl (32-36); Mean Corpuscular Hemoglobin 32.2 pg (26-34); Mean Corpuscular Volume 92.3 fl (80-100); Mean Platelet Volume 9.8 fl (7.4-10.4); Monocytes Absolute Auto 1.3 K/mm3 (0.1-0.6); Monocytes Percent Auto 11.1 % (2.6-8.5); Neutrophils Absolute Auto 7.3 K/mm3 (1.3-6.7); Neutrophils Percent Auto 64.8 % (45.5-73.1); Platelet Count Result 186 k/mm3 (150-375); Red Blood Count 4.94 M/mm3 (4.6-6.20); Red Cell Distribution Width 13.1 % (11.5-14.5); White Blood Count 11.2 K/mm3 (4.5-10.0)
[2024-04-23 17:08] LABS: Appearance Urine Cloudy (Clear); Bacteria Urine None Seen /hpf; Bilirubin Urine Negative (Negative); Blood Urine Negative (Negative); Color Urine Yellow (Yellow); Glucose Urine UA Negative (Negative); Ketones Urine Trace mg/dL (Negative); Leukocyte Esterase Ur Negative LEU/UL (Negative); Nitrate Urine Negative (Negative); Non Pathogenic Casts 0-2; Protein Urine Negative (Negative); RBC Urine 0-2 /hpf (0-2); Specific Grav Ur 1.029 (1.001-1.035); Squamous Epithelial Cell Urine None Seen /hpf (Few); Urobilinogen Urine 0.2 mg/dL (<2.0); WBC Urine 0-5 /hpf (0-3); pH Urine 5.5 (5.0-9.0)
[2024-04-23 17:15] LABS: Add Urine Microscopic? YES
--- NOTE | 2024-04-23 17:19 | ED.GENADULT ---
HPI - General Adult General Chief complaint: Nausea/Vomiting/Diarrhea Stated complaint: Abd pain, N/V Time Seen by Provider: 04/23/24 16:55 History of Present Illness HPI narrative: 38-year-old male presented to the emergency department for evaluation of worsening umbilical abdominal pain. Patient states that he has a known hernia but states the hernia has been more painful as of lately. Patient states that he bent over to for in his wheelchair and suspect he injured himself. Patient describes a burning sensation in the anterior abdominal wall. Patient denies any associated nausea vomiting or diarrhea. Patient appears to be in no distress Related Data Home Medications Medication Instructions Recorded Confirmed thiamine HCl (vitamin B1) 100 mg 100 mg PO DAILY 04/20/21 01/14/24 tablet melatonin 3 mg tablet 10 mg PO HS 09/15/21 01/18/24 ferrous sulfate 325 mg (65 mg 325 mg PO DAILY 11/12/21 01/14/24 iron) tablet rifaximin 550 mg tablet (Xifaxan) 550 mg PO BID 11/12/21 01/14/24 acetaminophen 500 mg tablet 1,000 mg PO Q8H PRN Pain 06/24/22 01/14/24 (Acetaminophen Extra Strength) calcium carbonate 500 mg PO TID 06/24/22 01/14/24 cholecalciferol (vitamin D3) 125 125 mcg PO DAILY 06/24/22 01/14/24 mcg (5,000 unit) tablet potassium chloride 20 mEq 20 meq PO DAILY 06/24/22 01/14/24 tablet,extended release furosemide 20 mg tablet (Lasix) 40 mg PO BID 12/14/22 01/14/24 spironolactone 50 mg tablet 100 mg PO DAILY 12/14/22 01/14/24 (Aldactone) diclofenac sodium 1 % topical gel 2 g topical Q6H PRN Pain 12/15/23 01/14/24 lidocaine 5 % topical patch 1 patch transdermal DAILY 12/15/23 01/14/24 (Lidoderm) magnesium oxide 400 mg PO DAILY 12/15/23 01/14/24 propranolol 10 mg tablet 10 mg PO BID 12/15/23 01/14/24 quetiapine 25 mg tablet 12.5 mg PO TID 12/15/23 01/14/24 sucralfate 100 mg/mL oral 10 ml PO TID 12/15/23 01/14/24 suspension baclofen 10 mg tablet 15 mg PO TID 01/12/24 01/14/24 bupropion HCl 100 mg tablet 100 mg PO TID 01/12/24 01/14/24 buspirone 5 mg tablet 5 mg PO BID Anxiety 01/12/24 01/14/24 diazepam 5 mg tablet 5 mg PO Q12H 01/12/24 01/14/24 hydrocodone 10 mg-acetaminophen 1 tablet PO Q6H 01/12/24 01/14/24 325 mg tablet hydroxyzine HCl 25 mg tablet 25 mg PO TID Anxiety 01/12/24 01/14/24 lactulose 10 gram/15 mL oral 30 ml PO TID 01/12/24 01/14/24 solution meclizine 25 mg tablet 25 mg PO Q8H dizziness 01/12/24 01/14/24 ondansetron HCl 4 mg tablet 4 mg PO Q8H PRN nausea/vomiting 01/12/24 01/14/24 prazosin 1 mg capsule 1 mg PO QID 01/12/24 01/14/24 trazodone 50 mg tablet 50 mg PO QHS 01/12/24 01/14/24 Allergies Allergy/AdvReac Type Severity Reaction Status Date / Time peanut Allergy Severe Anaphylaxis Verified 03/26/24 08:05 mushroom AdvReac Unknown Verified 03/26/24 08:05 Review of Systems Review of Systems: All systems reviewed & are unremarkable except as noted in HPI and below PMFSH Past Medical History Medical History Alcohol abuse Alcoholic hepatitis Holt's esophagus with esophagitis Chronic anemia Cirrhosis Depression with anxiety Esophageal varices Fracture of left hip GI bleed Secondary to bleeding varices. Tobacco abuse Surgical History Surgical History History of colonoscopy with polypectomy (05/25/22) Benign colon polyp, internal hemorrhoids. History of esophagogastroduodenoscopy (05/22/22) Nonbleeding esophageal varices, Holt esophagus without dysplasia, gastritis. Family History Family History Mother Liver disease Cirrhosis Grandparent Heart failure Heart attack Social History Social History Social History: Surrogate medical decision maker: Modesto Diaz, father. Code status: Full code. Smoking packs per day: 0.25 Smoking cigarettes per day: 5.
[2024-04-23 17:30] LABS: Alanine Aminotransferase 26 U/L (6-50); Albumin Level 4.6 g/dL (3.5-5.1); Alkaline Phosphatase 70 U/L (38-126); Anion Gap 8 mmol/L (4-12); Aspartate Amino Transferase 26 U/L (17-59); Bilirubin,Total 0.8 mg/dL (0.2-1.3); Blood Urea Nitrogen 19 mg/dL (9-20); Calcium 9.7 mg/dL (8.4-10.2); Carbon Dioxide 27 mmol/L (22-30); Chloride 104 mmol/L (98-107); Estimated Glomerular Filt Rate > 60; Glucose 80 mg/dL (65-110); Lipase 75 U/L (23-300); Potassium 4.2 mmol/L (3.4-5.0); Sodium 139 mmol/L (137-145)
--- NOTE | 2024-04-23 18:36 | PC.NURSE ---
REPORT CALLED TO KT. SPOKE TO DORIS
== END 2024-04-23 19:02 ==
PROVIDERS: Emergency Provider Emergency Medicine; PCP Hospitalist
DX: S39.011A Strain of muscle, fascia and tendon of abdomen, initial encounter (principal); K22.70 Barrett's esophagus without dysplasia; K20.90 Esophagitis, unspecified without bleeding; K70.10 Alcoholic hepatitis without ascites; F10.10 Alcohol abuse, uncomplicated; K42.9 Umbilical hernia without obstruction or gangrene; D64.9 Anemia, unspecified; F41.8 Other specified anxiety disorders; F17.210 Nicotine dependence, cigarettes, uncomplicated; Z86.010 Personal history of colon polyps; Z79.899 Other long term (current) drug therapy; X50.9XXA Other and unspecified overexertion or strenuous movements or postures, initial encounter; K74.60 Unspecified cirrhosis of liver; K76.6 Portal hypertension
CPT/HCPCS: 36415; 74177; 80053; 81001; 83690; 85025; 99284; Q9967

== ENCOUNTER 2024-06-18 08:03 | Emergency (ER) | payer MEDICARE, MEDICAID, SELFPAY ==
[2024-06-18] VITALS (10 sets, daily range): BP systolic 116–150; BP diastolic 76–100; PULSE 69–81; RESP 16–20; TEMP 36.6; O2SAT 96–100
--- NOTE | ~2024-06-18 | XR_ITS ---
EXAMINATION: XR chest 2V DATE: 06/18/2024 11:15 INDICATION: Lightheadedness. Cough. TECHNIQUE: Frontal and lateral views of the chest were obtained. COMPARISON: Chest 2 views 03/26/2024 FINDINGS: There is no pneumonia, pleural effusion, or pneumothorax. The heart size is normal. There a re prominent pericardial fat pads. IMPRESSION: 1. No acute cardiopulmonary disease. Reviewed, dictated and finalized at location A.
--- NOTE | 2024-06-18 08:16 | ECG_ITS ---
Test Date: 2024-06-18 08:21:03 Measurements Intervals [place] Rate: 79 P: 4 MN: 129 QRS: -12 QRSD: 114 T: 33 QT: 364 QTc: 419 Interpretive Statements SINUS RHYTHM NORMAL ELECTROCARDIOGRAM No previous ECG available for comparison Electronically Signed On 06-19-2024 07:29:27 CDT by Rolando Khalil M.D.
--- NOTE | 2024-06-18 10:51 | ED.RECABL ---
HPI - Recheck/Abnormal Lab/Rx General Chief Complaint: Recheck/Abnormal Lab/Rx Stated Complaint: htn Time Seen by Provider: 06/18/24 09:38 History of Present Illness HPI narrative: 38 Year old male with history of alcohol use disorder, cirrhosis presenting with high blood pressure. States though lately he has been having episodes of lightheadedness. He states that whenever this happens he checks his blood pressure and it is too high. States it has been in the 160 systolic. States that sometimes he will have tightness in his chest when this happens. States he has had a bit of a cough at night. Related Data Home Medications Medication Instructions Recorded Confirmed thiamine HCl (vitamin B1) 100 mg 100 mg PO DAILY 04/20/21 01/14/24 tablet melatonin 3 mg tablet 10 mg PO HS 09/15/21 01/18/24 ferrous sulfate 325 mg (65 mg 325 mg PO DAILY 11/12/21 01/14/24 iron) tablet rifaximin 550 mg tablet (Xifaxan) 550 mg PO BID 11/12/21 01/14/24 acetaminophen 500 mg tablet 1,000 mg PO Q8H PRN Pain 06/24/22 01/14/24 (Acetaminophen Extra Strength) calcium carbonate 500 mg PO TID 06/24/22 01/14/24 cholecalciferol (vitamin D3) 125 125 mcg PO DAILY 06/24/22 01/14/24 mcg (5,000 unit) tablet potassium chloride 20 mEq 20 meq PO DAILY 06/24/22 01/14/24 tablet,extended release furosemide 20 mg tablet (Lasix) 40 mg PO BID 12/14/22 01/14/24 spironolactone 50 mg tablet 100 mg PO DAILY 12/14/22 01/14/24 (Aldactone) diclofenac sodium 1 % topical gel 2 g topical Q6H PRN Pain 12/15/23 01/14/24 lidocaine 5 % topical patch 1 patch transdermal DAILY 12/15/23 01/14/24 (Lidoderm) magnesium oxide 400 mg PO DAILY 12/15/23 01/14/24 propranolol 10 mg tablet 10 mg PO BID 12/15/23 01/14/24 quetiapine 25 mg tablet 12.5 mg PO TID 12/15/23 01/14/24 sucralfate 100 mg/mL oral 10 ml PO TID 12/15/23 01/14/24 suspension baclofen 10 mg tablet 15 mg PO TID 01/12/24 01/14/24 bupropion HCl 100 mg tablet 100 mg PO TID 01/12/24 01/14/24 buspirone 5 mg tablet 5 mg PO BID Anxiety 01/12/24 01/14/24 diazepam 5 mg tablet 5 mg PO Q12H 01/12/24 01/14/24 hydrocodone 10 mg-acetaminophen 1 tablet PO Q6H 01/12/24 01/14/24 325 mg tablet hydroxyzine HCl 25 mg tablet 25 mg PO TID Anxiety 01/12/24 01/14/24 lactulose 10 gram/15 mL oral 30 ml PO TID 01/12/24 01/14/24 solution meclizine 25 mg tablet 25 mg PO Q8H dizziness 01/12/24 01/14/24 ondansetron HCl 4 mg tablet 4 mg PO Q8H PRN nausea/vomiting 01/12/24 01/14/24 prazosin 1 mg capsule 1 mg PO QID 01/12/24 01/14/24 trazodone 50 mg tablet 50 mg PO QHS 01/12/24 01/14/24 Allergies Allergy/AdvReac Type Severity Reaction Status Date / Time peanut Allergy Severe Anaphylaxis Verified 03/26/24 08:05 mushroom AdvReac Unknown Verified 03/26/24 08:05 Review of Systems Review of Systems: All systems reviewed & are unremarkable except as noted in HPI and below PMFSH Past Medical History Medical History Alcohol abuse Alcoholic hepatitis Holt's esophagus with esophagitis Chronic anemia Cirrhosis Depression with anxiety Esophageal varices Fracture of left hip GI bleed Secondary to bleeding varices. Tobacco abuse Surgical History Surgical History History of colonoscopy with polypectomy (05/25/22) Benign colon polyp, internal hemorrhoids. History of esophagogastroduodenoscopy (05/22/22) Nonbleeding esophageal varices, Holt esophagus without dysplasia, gastritis. Family History Family History Mother Liver disease Cirrhosis Grandparent Heart failure Heart attack Social History Social History Social History: Surrogate medical decision maker: Modesto Diaz, father. Code status: Full code. Smoking packs per day: 0.25 Smoking cigarettes per day: 5.0 Years smoked: 20
[2024-06-18 11:46] LABS: Basophils Absolute Auto 0.1 K/mm3 (0.0-0.1); Basophils Percent Auto 0.6 % (0.2-1.2); Eosinophils Absolute Auto 0.1 K/mm3 (0-0.3); Eosinophils Percent Auto 1.1 % (0-4.4); Hematocrit 45.8 % (42.0-52.0); Hemoglobin 15.6 g/dL (14.0-18.0); Immature Granulocyte Absolute 0.17 K/mm3 (0.00-0.031); Immature Granulocyte Percent A 1.6 % (0-0.5); Lymphocytes Absolute Auto 1.85 K/mm3 (0.9-3.2); Lymphocytes Percent Auto 17.3 % (18.3-44.2); Mean Corpuscular HGB Conc 34.1 g/dl (32-36); Mean Corpuscular Hemoglobin 32.6 pg (26-34); Mean Corpuscular Volume 95.6 fl (80-100); Mean Platelet Volume 9.4 fl (7.4-10.4); Monocytes Absolute Auto 1.1 K/mm3 (0.1-0.6); Monocytes Percent Auto 9.8 % (2.6-8.5); Neutrophils Absolute Auto 7.5 K/mm3 (1.3-6.7); Neutrophils Percent Auto 69.6 % (45.5-73.1); Platelet Count Result 163 k/mm3 (150-375); Red Blood Count 4.79 M/mm3 (4.6-6.20); Red Cell Distribution Width 12.8 % (11.5-14.5); White Blood Count 10.7 K/mm3 (4.5-10.0)
[2024-06-18 11:56] LABS: Alanine Aminotransferase 38 U/L (6-50); Albumin Level 4.3 g/dL (3.5-5.1); Alkaline Phosphatase 75 U/L (38-126); Anion Gap 7 mmol/L (4-12); Aspartate Amino Transferase 26 U/L (17-59); Bilirubin,Total 0.7 mg/dL (0.2-1.3); Blood Urea Nitrogen 13 mg/dL (9-20); Calcium 9.3 mg/dL (8.4-10.2); Carbon Dioxide 28 mmol/L (22-30); Chloride 99 mmol/L (98-107); Estimated CRCL calculation 120 ml/min; Estimated Glomerular Filt Rate > 60; Glucose 95 mg/dL (65-110); Sodium 134 mmol/L (137-145)
[2024-06-18 12:07] LABS: Troponin I < 0.012 ng/mL (0.000-0.034)
[2024-06-18 12:22] LABS: Influenza A QL RT-PCR Negative (Negative); Influenza B QL RT-PCR Negative (Negative); RSV RNA, RT-PCR Negative (Negative); SARS-CoV-2 RNA PCR Negative (Negative)
== END 2024-06-18 16:09 ==
PROVIDERS: Emergency Provider Emergency Medicine; PCP Hospitalist
DX: R42 Dizziness and giddiness (principal); F17.210 Nicotine dependence, cigarettes, uncomplicated; Z20.822 Contact with and (suspected) exposure to COVID-19
CPT/HCPCS: 36415; 71046; 80053; 84484; 85025; 87637; 93005; 99284

== ENCOUNTER 2024-08-24 19:13 | Inpatient (IN) | payer MEDICARE, MEDICAID, SELFPAY ==
--- NOTE | ~2024-08-24 | US_ITS ---
RIGHT LOWER EXTREMITY VENOUS ULTRASOUND Ordering provider: Emperatriz Neri PA-C History: . pain in inner thigh x7d . Comparison: None. FINDINGS: --COMMON FEMORAL: Thrombosis is noted. --PROXIMAL SUPERFICIAL FEMORAL: Thrombosis is noted. --DISTAL SUPERFICIAL FEMORAL: Thrombosis is noted. --deep femoral vein: Thrombosis is noted. --POPLITEAL: Patent and free of thrombus. Normal compressibility, phasic flow and augmentation. --POSTERIOR TIBIAL: Patent and free of thrombus. Normal compressibility, phasic flow and augmentation . IMPRESSION: Positive right lower extremity venous US. DVT in the right lower extremity. Reviewed, dictated and finalized at location A.
--- NOTE | ~2024-08-24 | CT_ITS ---
Clinical Indication: DVT, shortness of breath CT Scan of the Chest with Contrast: Technique: Contiguous sections were acquired throughout the chest after intravenous administration of 100 cc of Omnipaque 350. Dose reduction technique was used on this scan by utilizing automated expos ure control and iterative reconstruction technique. The dose-length product (DLP) was 834.99 mGy-cm. COMPARISON: 12/31/2019 Findings: There is no evidence of any significant mediastinal, hilar or axillary lymphadenopathy. There is pulm onary embolus within the right main pulmonary artery extending to the right lower lobar pulmonary art [place] as well as several segmental branches in the right lower lobe. No evidence for right heart strain . There is no evidence of aortic dissection or aneurysm. There is no evidence of pleural or pericardial effusion. Stable area cystic change adjacent scarring in the posterior right lung apex region. No acute pulmona ry pathology evident in the lungs. Images through the upper abdomen reveal nodular contour of liver, consistent with cirrhotic change. S table probable small cystic left along the anterior margin of liver (axial image 183). Impression: Pulmonary embolus in the right main pulmonary artery extending to the right lower lobar pulmonary art [place] and lower lobe segmental branches. No definite evidence of right heart strain. Stable cystic area in the right lung apex with adjacent scarring. Cirrhotic change of the liver. Reviewed, dictated and finalized at location . Impression: Pulmonary embolus in the right main pulmonary artery extending to the right low er lobar pulmonary artery and lower lobe segmental branches. No definite eviden ce of right heart strain. Stable cystic area in the right lung apex with adjacent scarring. Cirrhotic change of the liver.
[2024-08-24 19:30] VITALS: BP 119/87; PULSE 90; RESP 16; TEMP 36.6; O2SAT 98
--- NOTE | 2024-08-24 22:18 | ED_ITS ---
HPI - Alcohol General Chief Complaint: Alcohol <ZANE Graham Last Filed: 08/25/24 03:27> Stated Complaint: right groin pain <ZANE Graham Last Filed: 08/25/24 03:27> Time Seen by Provider: 08/24/24 21:59 <Emperatriz Neri PA-C - Last Filed: 08/25/24 03:27> Source: patient <ZANE Graham Last Filed: 08/25/24 03:27> Mode of arrival: EMS <ZANE Graham Last Filed: 08/25/24 03:27> Limitations: no limitations <ZANE Graham Last Filed: 08/25/24 03:27> History of Present Illness HPI narrative: Patient is a 38-year-old male who presents to the ED via EMS with report of right thigh pain and concern for alcohol withdrawal. Patient is currently residing at [facility]. He has history of previous left hip fracture which he did not undergo surgical repair of. He is currently wheelchair bound. Patient reports having pain throughout his right medial upper thigh for the past 7 days. Denies any fall or injury. Denies numbness or appreciable swelling. Denies previous history of blood clots. Denies chest pain. Does admit to having some increased shortness of breath with exertion over the last 1 week. Patient also reports he is concerned he is going to begin going through alcohol withdrawal soon. He has a long history of alcohol abuse, history of liver cirrhosis. States over the past 12 days he has been drinking at least half a L of vodka per day. He last drink at 730am on 08/24. States his cousin brings him in alcohol into the half-way. States he wants to quit drinking and avoid withdrawal symptoms. Has had withdrawal sx's and self reported DTs in the past with quitting drinking. He states he has had seizures before with quitting. Denies current nausea, abdominal pain. <ZANE Graham Last Filed: 08/25/24 03:27> Related Data Home Medications: Home Medications Medication Instructions Recorded Confirmed thiamine HCl (vitamin B1) 100 mg 100 mg PO DAILY 04/20/21 01/14/24 tablet melatonin 3 mg tablet 10 mg PO HS 09/15/21 01/18/24 ferrous sulfate 325 mg (65 mg 325 mg PO DAILY 11/12/21 01/14/24 iron) tablet rifaximin 550 mg tablet (Xifaxan) 550 mg PO BID 11/12/21 01/14/24 acetaminophen 500 mg tablet 1,000 mg PO Q8H PRN Pain 06/24/22 01/14/24 (Acetaminophen Extra Strength) calcium carbonate 500 mg PO TID 06/24/22 01/14/24 cholecalciferol (vitamin D3) 125 125 mcg PO DAILY 06/24/22 01/14/24 mcg (5,000 unit) tablet potassium chloride 20 mEq 20 meq PO DAILY 06/24/22 01/14/24 tablet,extended release furosemide 20 mg tablet (Lasix) 40 mg PO BID 12/14/22 01/14/24 spironolactone 50 mg tablet 100 mg PO DAILY 12/14/22 01/14/24 (Aldactone) diclofenac sodium 1 % topical gel 2 g topical Q6H PRN Pain 12/15/23 01/14/24 lidocaine 5 % topical patch 1 patch transdermal DAILY 12/15/23 01/14/24 (Lidoderm) magnesium oxide 400 mg PO DAILY 12/15/23 01/14/24 propranolol 10 mg tablet 10 mg PO BID 12/15/23 01/14/24 quetiapine 25 mg tablet 12.5 mg PO TID 12/15/23 01/14/24 sucralfate 100 mg/mL oral 10 ml PO TID 12/15/23 01/14/24 suspension baclofen 10 mg tablet 15 mg PO TID 01/12/24 01/14/24 bupropion HCl 100 mg tablet 100 mg PO TID 01/12/24 01/14/24 buspirone 5 mg tablet 5 mg PO BID Anxiety 01/12/24 01/14/24 diazepam 5 mg tablet 5 mg PO Q12H 01/12/24 01/14/24 hydrocodone 10 mg-acetaminophen 1 tablet PO Q6H 01/12/24 01/14/24 325 mg tablet hydroxyzine HCl 25 mg tablet 25 mg PO TID Anxiety 01/12/24 01/14/24 lactulose 10 gram/15 mL oral 30 ml PO TID 01/12/24 01/14/24 solution meclizine 25 mg tablet 25 mg PO Q8H dizziness 01/12/24 01/14/24 ondansetron HCl 4 mg tablet 4 mg PO Q8H PRN nausea/vomiting 01/12/24 01/14/24 prazosin 1 mg capsule 1 mg PO QID 01/12/24 01/14/24 trazodone 50 mg tablet 50 mg PO QHS 01/12/24 01/14/24 <Emperatriz Neri PA-C - Last Filed: 08/25/24 03:27> Allergies/Adverse Reactions: Allergies Allergy/AdvReac Type Severity Reaction Status Date / Time peanut Allergy Severe Anaphylaxis Verified 03/26/24 08:05 mushroom AdvReac Unknown Verified 03/26/24 08:05 <Emperatriz Neri PA-C - Last Filed: 08/25/24 03:27> Review of Systems Review of Systems: All systems reviewed & are unremarkable except as noted in HPI. <Emperatriz Neri PA-C - Last Filed: 08/25/24 03:27> All systems reviewed & are unremarkable except as noted in HPI and below <Emperatriz Neri PA-C - Last Filed: 08/25/24 03:27> PMFSH Past Medical History Medical History: Medical History Alcohol abuse Alcoholic hepatitis Holt's esophagus with esophagitis Chronic anemia Cirrhosis Depression with anxiety Esophageal varices Fracture of left hip GI bleed Secondary to bleeding varices. Tobacco abuse <Emperatriz Neri PA-C - Last Filed: 08/25/24 03:27> Surgical History Surgical History: Surgical History History of colonoscopy with polypectomy (05/25/22) Benign colon polyp, internal hemorrhoids. History of esophagogastroduodenoscopy (05/22/22) Nonbleeding esophageal varices, Holt esophagus without dysplasia, gastritis. <Emperatriz Neri PA-C - Last Filed: 08/25/24 03:27> Family History Family History: Family History Mother Liver disease Cirrhosis Grandparent Heart failure Heart attack <Emperatriz Neri PA-C - Last Filed: 08/25/24 03:27> Social History Social History: Social History Social History: Surrogate medical decision maker: Modesto Diaz, father. Code status: Full code. Smoking packs per day: 0.25 Smoking cigarettes per day: 5.0 Years smoked: 20 Smoking pack-years: 5.00 Smoking status: Current every day smoker Tobacco type: cigarettes Additional smoking assessment comments: Now smoking about 5 cigarettes a day while at a retirement facility. T Alcohol intake: current Drinks per week: 120 Alcohol use details: Longstanding history of alcohol abuse. Substance use: current Substance use type: marijuana Do You Feel Safe in your Home?: Yes Lack of Transportation: No Lack of Food: Never True Current Housing: I Have Housing Concerned About Future Housing: No Difficulty Paying Gas/Electric Bills: No Difficulty Paying for Meds: No Currently Unemployed: No Education: Decline to Answer Difficulty w/ Childcare or Family Care: No Living arrangements: half-way Additional living arrangements comments: Currently at [facility] for rehab. Spiritual care concerns: No <Emperatriz Neri PA-C - Last Filed: 08/25/24 03:27> Exam Narrative: GENERAL: Appears older than stated age, obese with BMI of 33.1, non-toxic, in no acute distress. HEAD: Normocephalic, atraumatic. RESPIRATORY: Airway patent, respirations nonlabored. Clear to auscultation bilaterally, no rales, rhonchi, wheezing. CARDIOVASCULAR: Regular rate and rhythm without murmurs, rubs, or gallops. Peripheral pulses intact. ABDOMINAL: Abdomen is mildly distended appearing but still soft, no significant focal tenderness. Normoactive BS. MUSCULOSKELETAL: Moves all extremities. No gross deformities. Mild tenderness palpation R proximal inner thigh with chronic stria present. No significant overlying erythema, warmth, swelling. No lower extremity peripheral edema. Sensation intact throughout right lower extremity. SKIN: Warm, dry, normal color. NEURO: A&O X3. Speech clear. Cranial nerves II-XII grossly intact. No ataxic movements. PSYCHIATRIC: Appropriate mood and affect. Normal interaction. <Emperatriz Neri PA-C - Last Filed: 08/25/24 03:27> Course QUALITY CONTROL ENGINEER/PA Physician Supervision I agree with midlevel documentation; I performed the medical decision making component of this evaluation. <Nelida Garcia MD - Last Filed: 08/25/24 06:09> Reevaluation(s) Reevaluation #1: Patient with concern for DVT, he is wheelchair-bound. He does have DVT, anticoagulation started, CT PE had been ordered, the patient largely asymptomatic with normal vital signs, this does show unfortunately lobar PE with possible right heart strain. Given this I do feel patient would benefit from admission here for cardiac echo for further evaluation. Discussed with hospitalist for admission. <Nelida Garcia MD - Last Filed: 08/25/24 06:09> Vital Signs Vital signs: Vital Signs Temperature 97.9 F 08/24/24 19:30 Pulse Rate 90 08/24/24 19:30 Respiratory Rate 16 08/24/24 19:30 Blood Pressure 119/87 08/24/24 19:30 Pulse Oximetry 98 08/24/24 19:30 Temperature 97.9 F 08/24/24 19:30 Pulse Rate 86 08/25/24 04:09 Respiratory Rate 18 08/25/24 04:09 Blood Pressure 111/74 08/25/24 04:09 Pulse Oximetry 99 08/25/24 04:09 <Emperatriz Neri PA-C - Last Filed: 08/25/24 03:27> Vital Signs Temperature 97.9 F 08/24/24 19:30 Pulse Rate 90 08/24/24 19:30 Respiratory Rate 16 08/24/24 19:30 Blood Pressure 119/87 08/24/24 19:30 Pulse Oximetry 98 08/24/24 19:30 Temperature 97.9 F 08/24/24 19:30 Pulse Rate 86 08/25/24 04:09 Respiratory Rate 18 08/25/24 04:09 Blood Pressure 111/74 08/25/24 04:09 Pulse Oximetry 99 08/25/24 04:09 <Nelida Garcia MD - Last Filed: 08/25/24 06:09> MDM - Alcohol MDM Narrative Medical decision making narrative: Patient presented to ED with right lower extremity/right thigh pain, also reporting he quit drinking alcohol today and is concerned he is going to began having withdrawal symptoms. Vital signs are stable upon arrival. Patient is in no acute distress. CIWA upon the time of my evaluation was only 6. He does not appear to be acutely withdrawing. On exam, he does have tenderness throughout his right proximal thigh, but no appreciable swelling throughout the extremity. Venous Doppler ultrasound was obtained of right lower extremity and actually positive for DVT. COMMON FEMORAL: Thrombosis is noted. --PROXIMAL SUPERFICIAL FEMORAL: Thrombosis is noted. --DISTAL SUPERFICIAL FEMORAL: Thrombosis is noted. --deep femoral vein: Thrombosis is noted. Patient updated on this. Will need to be started on anticoagulation. I had a long discussion with patient about risks of anticoagulation and alcohol abuse. Advised that patient to needs to be serious about quitting alcohol use and that being on blood thinners while drinking alcohol puts him at increased risks for injury/falls/bleeding. Patient does admit to having some increased shortness breath over the last 1 week. CTA of chest was obtained. Trop undetectable. BNP WNL. Remainder basic laboratory studies are fairly unremarkable. No leukocytosis. Stable H&H. Platelets are within normal range. Normal LFTs and lipase. Stable electrolytes. Alcohol level here is negative. Care signed out to Dr. Garcia at shift change pending STAT RAD CTA results. Patient has been calm and cooperative throughout ED stay. He has not shown any signs or symptoms of severe alcohol withdrawal. Feel he is safe for discharge back to half-way facility. I discussed management of withdrawal symptoms that he has tolerated in the past. He has taken Librium before. Discussed giving phenobarbital here as a 1 time dose. He would like to proceed with the phenobarbital. Discussed very strict return precautions. <Emperatriz Neri PA-C - Last Filed: 08/25/24 03:27> Medical Records Attestation: I reviewed the patient's medical records. <Emperatriz Neri PA-C - Last Filed: 08/25/24 03:27> Lab Data Attestation: I reviewed the patient's lab results. <ZANE Graham Last Filed: 08/25/24 03:27> Result diagrams: 08/24/24 22:58 08/24/24 22:58 <Emperatriz Neri PA-C - Last Filed: 08/25/24 03:27> Labs: Lab Results 08/24/24 Range/Units 22:58 WBC 10.0 (4.5-10.0) K/mm3 RBC 4.74 (4.6-6.20) M/mm3 Hgb 16.1 (14.0-18.0) g/dL Hct 44.8 (42.0-52.0) % MCV 94.5 (80-100) fl MCH 34.0 (26-34) pg MCHC 35.9 (32-36) g/dl RDW 13.0 (11.5-14.5) % Plt Count 158 (150-375) k/mm3 MPV 9.5 (7.4-10.4) fl Immature Gran % (Auto) 1.1 H (0-0.5) % Neut % (Auto) 66.6 (45.5-73.1) % Lymph % (Auto) 17.6 L (18.3-44.2) % [place] % (Auto) 13.1 H (2.6-8.5) % Eos % (Auto) 1.0 (0-4.4) % Baso % (Auto) 0.6 (0.2-1.2) % Lymph # (Auto) 1.75 (0.9-3.2) K/mm3 [place] # (Auto) 1.3 H (0.1-0.6) K/mm3 Eos # (Auto) 0.1 (0-0.3) K/mm3 Baso # (Auto) 0.1 (0.0-0.1) K/mm3 Abs Immat Gran (auto) 0.11 H (0.00-0.031) K/mm3 Absolute Neuts (auto) 6.6 (1.3-6.7) K/mm3 Absolute Nucleated RBC 0.000 (0.0-0.012) K/mm3 Nucleated RBC % 0.0 (0.0-0.2) % PT 14.2 (11.1-14.7) Seconds INR 1.1 APTT 28.3 (22.3-36.8) Seconds Sodium 135 L (137-145) mmol/L Potassium 3.7 (3.4-5.0) mmol/L Chloride 99 (98-107) mmol/L Carbon Dioxide 28 (22-30) mmol/L Anion Gap 8 (4-12) mmol/L BUN 9 (9-20) mg/dL Creatinine 0.70 (0.7-1.3) mg/dL Estim Creat Clear Calc 135 ml/min Estimated GFR > 60 (59 - ) Glucose 98 (65-110) mg/dL Calcium 9.2 (8.4-10.2) mg/dL Magnesium 1.7 (1.6-2.3) mg/dL Total Bilirubin 0.8 (0.2-1.3) mg/dL AST 30 (17-59) U/L ALT 30 (6-50) U/L Alkaline Phosphatase 86 (38-126) U/L Troponin I < 0.012 (0.000-0.034) ng/mL NT-Pro-B Natriuret Pep < 20 (19.9-100) pg/mL Total Protein 8.0 (6.3-8.2) g/dL Albumin 4.4 (3.5-5.1) g/dL Lipase 106 (23-300) U/L Ethyl Alcohol < 10 (<10) mg/dL <Emperatriz Neri PA-C - Last Filed: 08/25/24 03:27> Lab Results 08/24/24 Range/Units 22:58 WBC 10.0 (4.5-10.0) K/mm3 RBC 4.74 (4.6-6.20) M/mm3 Hgb 16.1 (14.0-18.0) g/dL Hct 44.8 (42.0-52.0) % MCV 94.5 (80-100) fl MCH 34.0 (26-34) pg MCHC 35.9 (32-36) g/dl RDW 13.0 (11.5-14.5) % Plt Count 158 (150-375) k/mm3 MPV 9.5 (7.4-10.4) fl Immature Gran % (Auto) 1.1 H (0-0.5) % Neut % (Auto) 66.6 (45.5-73.1) % Lymph % (Auto) 17.6 L (18.3-44.2) % [place] % (Auto) 13.1 H (2.6-8.5) % Eos % (Auto) 1.0 (0-4.4) % Baso % (Auto) 0.6 (0.2-1.2) % Lymph # (Auto) 1.75 (0.9-3.2) K/mm3 [place] # (Auto) 1.3 H (0.1-0.6) K/mm3 Eos # (Auto) 0.1 (0-0.3) K/mm3 Baso # (Auto) 0.1 (0.0-0.1) K/mm3 Abs Immat Gran (auto) 0.11 H (0.00-0.031) K/mm3 Absolute Neuts (auto) 6.6 (1.3-6.7) K/mm3 Absolute Nucleated RBC 0.000 (0.0-0.012) K/mm3 Nucleated RBC % 0.0 (0.0-0.2) % PT 14.2 (11.1-14.7) Seconds INR 1.1 APTT 28.3 (22.3-36.8) Seconds Sodium 135 L (137-145) mmol/L Potassium 3.7 (3.4-5.0) mmol/L Chloride 99 (98-107) mmol/L Carbon Dioxide 28 (22-30) mmol/L Anion Gap 8 (4-12) mmol/L BUN 9 (9-20) mg/dL Creatinine 0.70 (0.7-1.3) mg/dL Estim Creat Clear Calc 135 ml/min Estimated GFR > 60 (59 - ) Glucose 98 (65-110) mg/dL Calcium 9.2 (8.4-10.2) mg/dL Magnesium 1.7 (1.6-2.3) mg/dL Total Bilirubin 0.8 (0.2-1.3) mg/dL AST 30 (17-59) U/L ALT 30 (6-50) U/L Alkaline Phosphatase 86 (38-126) U/L Troponin I < 0.012 (0.000-0.034) ng/mL NT-Pro-B Natriuret Pep < 20 (19.9-100) pg/mL Total Protein 8.0 (6.3-8.2) g/dL Albumin 4.4 (3.5-5.1) g/dL Lipase 106 (23-300) U/L Ethyl Alcohol < 10 (<10) mg/dL <Nelida Garcia MD - Last Filed: 08/25/24 06:09> Imaging Data Attestation: I personally reviewed and interpreted this imaging study as follows: <Emperatriz Neri PA-C - Last Filed: 08/25/24 03:27> Radiologist's impression: ITS Impressions Venous Doppler Study 08/24/24 23:10 IMPRESSION: Positive right lower extremity venous US. DVT in the right lower extremity. Chest CTA 08/25/24 05:52 Impression: Pulmonary embolus in the right main pulmonary artery extending to the right lower lobar pulmonary artery and lower lobe segmental branches. No definite evidence of right heart strain. Stable cystic area in the right lung apex with adjacent scarring. Cirrhotic change of the liver. <Emperatriz Neri PA-C - Last Filed: 08/25/24 03:27> ITS Impressions Venous Doppler Study 08/24/24 23:10 IMPRESSION: Positive right lower extremity venous US. DVT in the right lower extremity. Chest CTA 08/25/24 05:52 Impression: Pulmonary embolus in the right main pulmonary artery extending to the right lower lobar pulmonary artery and lower lobe segmental branches. No definite evidence of right heart strain. Stable cystic area in the right lung apex with adjacent scarring. Cirrhotic change of the liver. <Nelida Garcia MD - Last Filed: 08/25/24 06:09> Discharge Plan Discharge Clinical Impression: Alcohol use disorder, Deep vein thrombosis (DVT) of right lower extremity, Pulmonary embolism <Emperatriz Neri PA-C - Last Filed: 08/25/24 03:27> Patient Disposition: Still a Patient <ZANE Graham Last Filed: 08/25/24 03:27> Condition: Stable <ZANE Graham Last Filed: 08/25/24 03:27> Prescriptions: New Eliquis DVT-PE Treat 30D Start 5 mg (74 tabs) tablets,dose pack See Rx Instructions .ROUTE .COMPLEX Qty: 74 0RF Rx Instructions: orally per package directions No Action folic acid 1 mg tablet 1 mg PO DAILY Qty: 30 0RF thiamine HCl (vitamin B1) 100 mg Tablet 100 mg PO DAILY ferrous sulfate 325 mg (65 mg iron) Tablet 325 mg PO DAILY Xifaxan 550 mg tablet 550 mg PO BID spironolactone [Aldactone] 50 mg tablet 100 mg PO DAILY furosemide [Lasix] 20 mg tablet 40 mg PO BID quetiapine 25 mg tablet 12.5 mg PO TID sucralfate 100 mg/mL suspension 10 ml PO TID lidocaine [Lidoderm] 5 % Adhesive Patch,Medicated 1 patch transdermal DAILY Rx Instructions: apply to left hip diclofenac sodium 1 % Gel 2 g TOPICAL Q6H PRN (Reason: Pain) Rx Instructions: ANYWHERE ON THE BODY magnesium oxide 400 mg tablet 400 mg PO DAILY propranolol 10 mg tablet 10 mg PO BID melatonin 3 mg Tablet 10 mg PO HS acetaminophen [Acetaminophen Extra Strength] 500 mg Tablet 1,000 mg PO Q8H PRN (Reason: Pain) Patient Comments: daily at 12pm and 8pm calcium carbonate 500 mg calcium (1,250 mg) Tablet,Chewable 500 mg PO TID cholecalciferol (vitamin D3) 125 mcg (5,000 unit) Tablet 125 mcg PO DAILY potassium chloride 20 mEq Tablet Extended Release 20 meq PO DAILY trazodone 50 mg tablet 50 mg PO QHS prazosin 1 mg capsule 1 mg PO QID ondansetron HCl 4 mg Tablet 4 mg PO Q8H PRN (Reason: nausea/vomiting) bupropion HCl 100 mg tablet 100 mg PO TID meclizine 25 mg tablet 25 mg PO Q8H diazepam 5 mg tablet 5 mg PO Q12H lactulose 10 gram/15 mL solution 30 ml PO TID buspirone 5 mg tablet 5 mg PO BID hydrocodone-acetaminophen 10-325 mg tablet 1 tablet PO Q6H baclofen 10 mg tablet 15 mg PO TID hydroxyzine HCl 25 mg tablet 25 mg PO TID pantoprazole 40 mg Tablet,Delayed Release (Dr/Ec) 40 mg PO QAM Qty: 30 0RF chlordiazepoxide HCl 25 mg capsule See Rx Instructions .ROUTE .COMPLEX Qty: 7 0RF Rx Instructions: 25 mg orally Q 8 hours tomorrow, q.12 hours the following day and once on day 3 <Emperatriz Neri PA-C - Last Filed: 08/25/24 03:27> Follow-up/Referrals: Teodoro Lopez MD [Primary Care Provider] - <Emperatriz Neri PA-C - Last Filed: 08/25/24 03:27>
[2024-08-24 23:03] LABS: Basophils Absolute Auto 0.1 K/mm3 (0.0-0.1); Basophils Percent Auto 0.6 % (0.2-1.2); Eosinophils Absolute Auto 0.1 K/mm3 (0-0.3); Hematocrit 44.8 % (42.0-52.0); Hemoglobin 16.1 g/dL (14.0-18.0); Immature Granulocyte Absolute 0.11 K/mm3 (0.00-0.031); Immature Granulocyte Percent A 1.1 % (0-0.5); Lymphocytes Absolute Auto 1.75 K/mm3 (0.9-3.2); Lymphocytes Percent Auto 17.6 % (18.3-44.2); Mean Corpuscular HGB Conc 35.9 g/dl (32-36); Mean Corpuscular Volume 94.5 fl (80-100); Mean Platelet Volume 9.5 fl (7.4-10.4); Monocytes Absolute Auto 1.3 K/mm3 (0.1-0.6); Monocytes Percent Auto 13.1 % (2.6-8.5); Neutrophils Absolute Auto 6.6 K/mm3 (1.3-6.7); Neutrophils Percent Auto 66.6 % (45.5-73.1); Platelet Count Result 158 k/mm3 (150-375); Red Blood Count 4.74 M/mm3 (4.6-6.20)
[2024-08-24] MEDS: THIAMINE HCL 200 MG/2 ML VIAL 100 MG IV PUSH (23:09)
[2024-08-24] MEDS: SODIUM CHLORIDE 0.9% IV 1,000 ML 999 ML IV CONT (23:10)
[2024-08-24 23:16] LABS: INR 1.1; Partial Thromboplastin Time 28.3 Seconds (22.3-36.8); Prothrombin Time 14.2 Seconds (11.1-14.7)
[2024-08-24 23:19] LABS: Lipase 106 U/L (23-300); Magnesium 1.7 mg/dL (1.6-2.3)
[2024-08-24 23:20] LABS: Alanine Aminotransferase 30 U/L (6-50); Albumin Level 4.4 g/dL (3.5-5.1); Alkaline Phosphatase 86 U/L (38-126); Anion Gap 8 mmol/L (4-12); Aspartate Amino Transferase 30 U/L (17-59); Bilirubin,Total 0.8 mg/dL (0.2-1.3); Blood Urea Nitrogen 9 mg/dL (9-20); Calcium 9.2 mg/dL (8.4-10.2); Carbon Dioxide 28 mmol/L (22-30); Chloride 99 mmol/L (98-107); Estimated CRCL calculation 135 ml/min; Estimated Glomerular Filt Rate > 60; Glucose 98 mg/dL (65-110); Potassium 3.7 mmol/L (3.4-5.0); Sodium 135 mmol/L (137-145)
[2024-08-24 23:31] LABS: Ethanol < 10 mg/dL (<10)
--- NOTE | 2024-08-24 23:38 | PC.NURSE ---
Assumed care of pt after receiving report from ALFREDO Mosher @ [id number]
[2024-08-24 23:41] VITALS: BP 121/68; PULSE 78; RESP 18; O2SAT 96
[2024-08-25] VITALS (13 sets, daily range): BP systolic 102–122; BP diastolic 62–90; PULSE 83–95; RESP 15–20; TEMP 35.9–36.7; O2SAT 93–99; BMI 33.0; BMI 33.1
--- NOTE | 2024-08-25 00:26 | ECG_ITS ---
Test Date: 2024-08-25 00:26:09 Measurements Intervals Devol Rate: 89 P: 47 PA: 130 QRS: 11 QRSD: 92 T: 58 QT: 381 QTc: 464 Interpretive Statements SINUS RHYTHM CONSIDER INFERIOR INFARCT, AGE INDETERMINATE NONSPECIFIC T-WAVE ABNORMALITY- ANTERIOR LEADS BASELINE ARTIFACT- V4-V5 ABNORMAL ECG Compared to ECG 06/18/2024 08:21:03 NO SIGNIFICANT CHANGE Electronically Signed On 08-25-2024 08:10:49 CDT by Carl Fitzgerald D.O.
[2024-08-25] MEDS: LORazepam (*CRX) 1 MG TABLET PO ×4 (00:27→21:23)
[2024-08-25] MEDS: HALOPERIDOL 5 MG TABLET PO ×3 (00:27→17:26)
[2024-08-25 01:56] LABS: NT Pro B Type Natriuretic Pept < 20 pg/mL (19.9-100); Troponin I < 0.012 ng/mL (0.000-0.034)
[2024-08-25] MEDS: PHENobarbitaL sodium (*CRX) 130 MG/ML VIAL 260 MG IV PUSH (03:54)
[2024-08-25] MEDS: ENOXAPARIN 100 MG/ML SYRINGE 95 MG SUB-Q ×2 (03:54→21:25)
[2024-08-25] MEDS: chlordiazePOXIDE (*CRX) 25 MG CAPSULE PO ×4 (06:19→23:47)
--- NOTE | 2024-08-25 06:58 | ADMGEN ---
This patient, Lukas Diaz, was admitted to Medical Room 243-01. Patient/family oriented to hospital policies and general routines including ID bracelet, bed and alarms, visiting hours, pain management, procedures, bathroom and other care routines, personal items, smoking policy, room service/diet, and visiting hours. Information on how to activate the Rapid Response Team has been discussed. Patient/Family are encouraged to report perceived risks to care and to ask questions if they do not understand what they are told or what they should do.
[2024-08-25 08:08] LABS: Glucose Point of Care 117 mg/dl (65-105)
--- NOTE | 2024-08-25 08:51 | P.HP_ITS ---
H&P: HPI History of Present Illness Date/Time: 08/25/24 08:51 Chief Complaint: Alcohol withdrawal Narrative: Patient is a 38-year-old male who presents to the ED via EMS with report of right thigh pain and concern for alcohol withdrawal. Patient is currently residing at [facility]. He has history of previous left hip fracture which he did not undergo surgical repair of. He is currently wheelchair bound. Patient reports having pain throughout his right medial upper thigh for the past 7 days. Denies any fall or injury. Denies numbness or appreciable swelling. Denies previous history of blood clots. Denies chest pain. Does admit to having some increased shortness of breath with exertion over the last 1 week. Patient also reports he is concerned he is going to begin going through alcohol withdrawal soon. He has a long history of alcohol abuse, history of liver cirrhosis. States over the past 12 days he has been drinking at least half a L of vodka per day. He last drink at 730am on 08/24. States his cousin brings him in alcohol into the [facility]it[facility]. States he wants to quit drinking and avoid withdrawal symptoms. Has had withdrawal sx's and self reported DTs in the past with quitting drinking. He states he has had seizures before with quitting. Denies current nausea, abdominal pain. Review of Systems Review of Systems: - CONSTITUTIONAL: Denies weight loss, fever and chills. - HEENT: Denies changes in vision and he aring - RESPIRATORY: Denies SOB and cough. - CV: Denies palpitations and CP. - GI: Denies abdominal pain, nausea, vom iting and diarrhea. - : Denies dysuria and urinary frequen cy. - MSK: Denies myalgia and joint pain. R ight thigh pain - SKIN: Denies rash and pruritus. - NEUROLOGICAL: Denies headache and sync ope. - PSYCHIATRIC: Denies recent changes in mood. Denies anxiety and depression. [facility] Past Medical History Medical History Alcohol abuse Alcoholic hepatitis Holt's esophagus with esophagitis Chronic anemia Cirrhosis Depression with anxiety Esophageal varices Fracture of left hip GI bleed Secondary to bleeding varices. Tobacco abuse Surgical History Surgical History History of colonoscopy with polypectomy (05/25/22) Benign colon polyp, internal hemorrhoids. History of esophagogastroduodenoscopy (05/22/22) Nonbleeding esophageal varices, Holt esophagus without dysplasia, gastritis. Family History Family History Mother Liver disease Cirrhosis Grandparent Heart failure Heart attack Social History Social History Social History: Surrogate medical decision maker: Modesto Diaz, father. Code status: Full code. Smoking packs per day: 0.25 Smoking cigarettes per day: 5.0 Years smoked: 20 Smoking pack-years: 5.00 Smoking status: Current every day smoker Additional smoking assessment comments: Now smoking about 5 cigarettes a day while at a half-way facility. T Alcohol intake: current Drinks per week: 120 Alcohol use details: Longstanding history of alcohol abuse. Substance use: current Substance use type: does not use Last use: 6 literals vodka week Do You Feel Safe in your Home?: Yes Lack of Transportation: No Lack of Food: Never True Current Housing: I Have Housing Concerned About Future Housing: No Difficulty Paying Gas/Electric Bills: No Difficulty Paying for Meds: No Currently Unemployed: No Education: High School Diploma/GED Difficulty w/ Childcare or Family Care: No Living arrangements: penitentiary Additional living arrangements comments: Currently at [facility] for rehab. Spiritual care concerns: No Meds Home Medications and Allergies Home Medications Medication Instructions Recorded Confirmed Type folic acid 1 mg tablet 1 mg PO DAILY #30 tabs 04/11/21 08/25/24 Rx thiamine HCl (vitamin B1) 100 mg 100 mg PO DAILY 04/20/21 08/25/24 History tablet melatonin 3 mg tablet 3 mg PO HS 09/15/21 08/25/24 History ferrous sulfate 325 mg (65 mg 325 mg PO DAILY 11/12/21 08/25/24 History iron) tablet rifaximin 550 mg tablet (Xifaxan) 550 mg PO BID 11/12/21 08/25/24 History acetaminophen 500 mg tablet 1,000 mg PO Q6H PRN Pain 06/24/22 08/25/24 History (Acetaminophen Extra Strength) calcium carbonate 500 mg PO TID 06/24/22 08/25/24 History cholecalciferol (vitamin D3) 125 125 mcg PO DAILY 06/24/22 08/25/24 History mcg (5,000 unit) tablet potassium chloride 20 mEq 20 meq PO DAILY 06/24/22 08/25/24 History tablet,extended release furosemide 20 mg tablet (Lasix) 40 mg PO BID 12/14/22 08/25/24 History spironolactone 50 mg tablet 100 mg PO DAILY 12/14/22 08/25/24 History (Aldactone) diclofenac sodium 1 % topical gel 2 g topical BID PRN Pain 12/15/23 08/25/24 History magnesium oxide 400 mg PO HS 12/15/23 08/25/24 History propranolol 10 mg tablet 10 mg PO BID 12/15/23 08/25/24 History sucralfate 100 mg/mL oral 10 ml PO TID 12/15/23 08/25/24 History suspension baclofen 10 mg tablet 10 mg PO BID 01/12/24 08/25/24 History bupropion HCl 100 mg tablet 100 mg PO TID 01/12/24 08/25/24 History buspirone 5 mg tablet 5 mg PO TID Anxiety 01/12/24 08/25/24 History hydrocodone 10 mg-acetaminophen 1 tablet PO Q6H pain 01/12/24 08/25/24 History 325 mg tablet hydroxyzine HCl 25 mg tablet 25 mg PO TID Anxiety 01/12/24 08/25/24 History lactulose 10 gram/15 mL oral 30 ml PO TID 01/12/24 08/25/24 History solution ondansetron HCl 4 mg tablet 4 mg PO Q8H PRN nausea/vomiting 01/12/24 08/25/24 History prazosin 1 mg capsule 1 mg PO QID 01/12/24 08/25/24 History trazodone 50 mg tablet 50 mg PO QHS 01/12/24 08/25/24 History Lactobacillus acidophilus 1,000 mmu cells PO BID 08/25/24 08/25/24 History apixaban 5 mg (74 tabs) tablets in See Rx Instructions PO .COMPLEX 08/25/24 Rx a dose pack ([facility] DVT-PE Treat #74 ea 30D Start) gabapentin 400 mg capsule 400 mg PO TID 08/25/24 08/25/24 History haloperidol 5 mg tablet 5 mg PO BID 08/25/24 08/25/24 History lidocaine 4 % topical patch 1 patch topical DAILY 08/25/24 08/25/24 History (Aspercreme (lidocaine)) lorazepam 1 mg tablet 1 mg PO Q6H 08/25/24 08/25/24 History menthol 5 % topical patch 1 patch topical DAILY 08/25/24 08/25/24 History (Biofreeze (menthol)) vittxvfj-ftsdt-xepkoor-diperod 1 ea topical QID 08/25/24 08/25/24 History topical ointment simethicone 80 mg chewable tablet 80 mg PO BID PRN Abdominal 08/25/24 08/25/24 History Discomfort Allergies Allergy/AdvReac Type Severity Reaction Status Date / Time peanut Allergy Severe Anaphylaxis Verified 03/26/24 08:05 shellfish derived Allergy Unknown Unknown Verified 08/25/24 07:35 mushroom AdvReac Unknown Verified 03/26/24 08:05 Vital Signs Vital Signs - 24 hr 08/24/24 19:30 08/24/24 23:41 08/25/24 01:42 Temperature 97.9 F Pulse Rate 90 78 84 Respiratory Rate 16 18 15 Blood Pressure 119/87 121/68 102/62 Pulse Oximetry 98 96 93 08/25/24 04:09 08/25/24 06:21 08/25/24 07:02 Temperature Pulse Rate 86 91 85 Respiratory Rate 18 17 Blood Pressure 111/74 113/90 Pulse Oximetry 99 97 08/25/24 06:59 Temperature 97.4 F L Pulse Rate 91 Respiratory Rate 20 Blood Pressure 122/73 Pulse Oximetry 98 Exam Narrative: GENERAL: Appears older than stated age, obese with BMI of 33.1, non-toxic, in no acute distress. HEAD: Normocephalic, atraumatic. RESPIRATORY: Airway patent, respirations nonlabored. Clear to auscultation bilaterally, no rales, rhonchi, wheezing. CARDIOVASCULAR: Regular rate and rhythm without murmurs, rubs, or gallops. Peripheral pulses intact. ABDOMINAL: Abdomen is mildly distended appearing but still soft, no significant focal tenderness. Normoactive BS. MUSCULOSKELETAL: Moves all extremities. No gross deformities. Mild tenderness palpation R proximal inner thigh with chronic stria present. No significant overlying erythema, warmth, swelling. No lower extremity peripheral edema. Sensation intact throughout right lower extremity. SKIN: Warm, dry, normal color. NEURO: A&O X3. Speech clear. Cranial nerves II-XII grossly intact. No ataxic movements. PSYCHIATRIC: Appropriate mood and affect. Normal interaction. H&P: Results Labs Labs: Short CBC 08/24/24 Range/Units 22:58 WBC 10.0 (4.5-10.0) K/mm3 Hgb 16.1 (14.0-18.0) g/dL Hct 44.8 (42.0-52.0) % Plt Count 158 (150-375) k/mm3 BMP 08/24/24 22:58 Sodium 135 L Potassium 3.7 Chloride 99 Carbon Dioxide 28 BUN 9 Creatinine 0.70 Glucose 98 Calcium 9.2 Cardiac Enzymes 08/24/24 Range/Units 22:58 Troponin I < 0.012 (0.000-0.034) ng/mL Liver Function 08/24/24 Range/Units 22:58 Total Bilirubin 0.8 (0.2-1.3) mg/dL AST 30 (17-59) U/L ALT 30 (6-50) U/L Alkaline Phosphatase 86 (38-126) U/L Albumin 4.4 (3.5-5.1) g/dL Assessment and Plan Assessment and plan (1) Alcohol use disorder: Code(s): F10.90 - Alcohol use, unspecified, uncomplicated Status: Acute (2) Deep vein thrombosis (DVT) of right lower extremity: Qualifiers: Affected thrombotic vein of extremity: unspecified vein of extremity Chronicity: acute Qualified Code(s): I82.401 - Acute embolism and thrombosis of unspecified deep veins of right lower extremity Code(s): I82.401 - Acute embolism and thrombosis of unspecified deep veins of right lower extremity Status: Acute (3) Pulmonary embolism: Code(s): I26.99 - Other pulmonary embolism without acute cor pulmonale Status: Acute (4) Cirrhosis: Qualifiers: Ascites presence: without ascites Hepatic cirrhosis type: alcoholic cirrhosis Qualified Code(s): K70.30 - Alcoholic cirrhosis of liver without ascites Code(s): K74.60 - Unspecified cirrhosis of liver Status: Acute Plan Patient is a 38-year-old male who presents to the ED via EMS with report of right thigh pain and concern for alcohol withdrawal. Patient is currently residing at [facility]. He has history of previous left hip fracture which he did not undergo surgical repair of. He is currently wheelchair bound. Patient reports having pain throughout his right medial upper thigh for the past 7 days. Denies any fall or injury. Denies numbness or appreciable swelling. Denies previous history of blood clots. Denies chest pain. Does admit to having some increased shortness of breath with exertion over the last 1 week. Patient also reports he is concerned he is going to begin going through alcohol withdrawal soon. He has a long history of alcohol abuse, history of liver cirrhosis. States over the past 12 days he has been drinking at least half a L of vodka per day. He last drink at 730am on 08/24. States his cousin brings him in alcohol into the penitent[facility]. States he wants to quit drinking and avoid withdrawal symptoms. Has had withdrawal sx's and self reported DTs in the past with quitting drinking. He states he has had seizures before with quitting. Denies current nausea, abdominal pain. Upon arrival to the ED vitals were stable. Venous ultrasound came back positive for thrombosis noted common femoral proximal superficial femoral distal superficial femoral and deep femoral vein. CTA chest was done which showed PE and right main pulmonary artery extending to the right lower lobe over pulmonary artery and lower lobe segmental branches with no definitive evidence of right heart strain. Stable cystic area in the right lung apex with adjacent scarring. Cirrhotic changes of the liver. started on Lovenox which will be continued therapeutic dose. Will be switched to Eliquis for his newly diagnosis DVT/PE. 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 Will add Librium. Ativan p.r.n. per CIWA protocol Chronic left hip fracture with nonunion DVT prophylaxis already on Lovenox Hospitalist [facility] Advance Care Plan I have confirmed that the patient's Advanced Care Plan is present, code status is documented, or surrogate decision maker is listed in patient medical record.: Yes Medication Reconciliation I have utilized all available resources to obtain, update and review the patients current medications (includes all prescriptions, OTC, herbals, cannabis, and nutritional supplements).: Yes
[2024-08-25] MEDS: FOLIC ACID 1 MG TABLET PO (10:19)
[2024-08-25] MEDS: SPIRONOLACTONE 50 MG TABLET 100 MG PO (10:19)
[2024-08-25] MEDS: SUCRALFATE SUSP 100 MG/ML 10 ML UDC 1000 MG PO ×3 (10:19→17:24)
[2024-08-25] MEDS: HYDROcodone/acetaminophen (*CRX) 10-325 MG TABLET 1 TAB PO ×3 (10:19→21:23)
[2024-08-25] MEDS: POTASSIUM CHLORIDE 20 MEQ ER TABLET PO (10:19)
[2024-08-25] MEDS: PROPRANOLOL HCL 10 MG TABLET PO ×2 (10:20→17:25)
[2024-08-25] MEDS: BACLOFEN 10 MG TABLET PO ×2 (10:20→17:26)
[2024-08-25] MEDS: THIAMINE HCL 100 MG TABLET PO (10:20)
[2024-08-25] MEDS: CHOLECALCIFEROL 5,000 UNITS TABLET 5000 UNITS BY MOUTH (10:20)
[2024-08-25] MEDS: busPIRone HCL 5 MG TABLET PO ×3 (10:20→17:26)
[2024-08-25] MEDS: FERROUS SULFATE 325 MG TABLET DR BY MOUTH (10:20)
[2024-08-25] MEDS: GABAPENTIN 400 MG CAPSULE PO ×3 (10:21→17:26)
[2024-08-25] MEDS: FUROSEMIDE 40 MG TABLET PO ×2 (10:21→17:26)
[2024-08-25] MEDS: hydrOXYzine HCL 25 MG TABLET PO ×3 (10:21→17:26)
[2024-08-25] MEDS: rifAXIMin 550 MG TABLET PO ×2 (10:24→17:26)
[2024-08-25] MEDS: PRAZOSIN HCL 1 MG CAPSULE PO ×4 (10:25→21:24)
[2024-08-25] MEDS: buPROPion HCL 100 MG TABLET PO ×3 (10:25→17:26)
[2024-08-25 11:32] LABS: Glucose Point of Care 107 mg/dl (65-105)
[2024-08-25] MEDS: CALCIUM CARBONATE (TUMS) 500 MG (200 MG ELEMENTAL) PO ×2 (12:20→17:25)
[2024-08-25] MEDS: ACIDOPHILUS/BULGARICUS CHEWABLE TABLET 1 TABLET BY MOUTH (17:26)
[2024-08-25 18:04] LABS: Glucose Point of Care 131 mg/dl (65-105)
[2024-08-25] MEDS: MAGNESIUM OXIDE 400 MG TABLET PO (21:23)
[2024-08-25] MEDS: MELATONIN 3 MG TABLET PO (21:24)
[2024-08-25] MEDS: traZODone HCL 50 MG TABLET PO (21:24)
[2024-08-25] MEDS: ONDANSETRON HCL ODT 4 MG TABLET PO (23:47)
[2024-08-26] VITALS (15 sets, daily range): BP systolic 105–150; BP diastolic 71–84; PULSE 72–88; RESP 16–18; TEMP 36–36.3; O2SAT 95–99
[2024-08-26 01:26] LABS: Glucose Point of Care 130 mg/dl (65-105)
[2024-08-26] MEDS: HYDROcodone/acetaminophen (*CRX) 10-325 MG TABLET 1 TAB PO ×4 (03:24→21:51)
[2024-08-26] MEDS: LORazepam (*CRX) 1 MG TABLET PO ×4 (03:24→21:50)
--- NOTE | 2024-08-26 06:00 | ECHO_ITS ---
Patient Info Name: Lukas Diaz Age: 38 years : 1985 Gender: Male Ht: 67 in Wt: 211 lbs BSA: 2.16 m2 HR: 77 bpm BP: 115 / 71 mmHg Heart Rhythm: Sinus Rhythm Technical Quality: Good Exam Date: 08/26/2024 9:18 AM Exam Location: Echo Lab Patient Status: Inpatient Admit Date: 08/25/2024 Staff Ordering Physician: Nelida Garcia MD Gas Compressor Turbine Operator: Ebonie Archer RDCS Attending Provider: Hiral Garrido DO Exam Type: CA echo doppler color flow Study Info Indications - PE with possible right heart strain Complete two-dimensional, color flow and Doppler transthoracic echocardiogram is performed. Summary 1. Complete two-dimensional, color flow and Doppler transthoracic echocardiogram is performed. 2. Left ventricular systolic function is normal, estimated at 60-65%. 3. The left ventricular diastolic function is normal. 4. Right ventricular chamber dimension is normal. 5. Right ventricular systolic function is normal. 6. There is mild pulmonic regurgitation. Left Ventricle Left ventricular chamber dimension is normal. Left ventricular systolic function is normal, estimated at 60-65%. There is no increased left ventricular wall thickness. Left ventricular septal wall motion is normal. The left ventricular diastolic function is normal. Right Ventricle Right ventricular chamber dimension is normal. Right ventricular systolic function is normal. Left Atria Left atrial chamber dimension is normal. Right Atria Right atrial chamber dimension is normal. Atrial Septum Intact interatrial septum visualized by color flow imaging. Aortic Valve The aortic valve is trileaflet. There is no aortic valve sclerosis. There is no aortic valve stenosis. There is no aortic valve regurgitation. Pulmonic Valve The pulmonic valve is normal. There is no pulmonic valve stenosis. There is mild pulmonic regurgitation. Mitral Valve The mitral valve has normal leaflets. There is no mitral valve stenosis. There is no mitral valve regurgitation. Tricuspid Valve The tricuspid valve leaflets are normal. There is no significant tricuspid valve stenosis. There is mild tricuspid valve regurgitation. No pulmonary hypertension, estimated pulmonary arterial systolic pressure is 29 mmHg. Pericardium/Pleural The pericardium appears normal. There is no pericardial effusion. Inferior Vena Cava Normal inferior vena cava with >50% collapse upon inspiration consistent with normal right atrial pressure, 5 mmHg. Aorta The aortic root size at the sinus of Valsalva is normal. The prox ascending aorta size is normal. Left Ventricular Outflow Tract Name Value Normal LVOT 2D LVOT Diameter 2.1 cm LVOT Doppler LVOT Peak Gradient 2 mmHg LVOT Mean Gradient 2 mmHg LVOT VTI 18 cm LVOT VTI/AV VTI Ratio 1.0 LVOT Stroke Volume 64 ml LVOT CO 4.4 l/min LVOT CI 2.0 l/min/m2 Mitral Valve Name Value Normal MV Doppler MV Decel [place] 201 cm/s2 MV PHT 76 ms MV Area (PHT) 2.9 cm2 4.0-5.0 MV Diastolic Function MV E Peak Velocity 53 cm/s MV A Peak Velocity 47 cm/s MV E/A 1.1 MV Decel Time 261 ms MV Annular TDI MV E/e' (Septal) 6.4 <=8.0 MV E/e' (Lateral) 4.5 <=8.0 MV E/e' (Average) 5.5 Tricuspid Valve Name Value Normal TV Regurgitation Doppler TR Peak Velocity 243 cm/s TR Peak Gradient 24 mmHg Estimated PAP/RSVP RA Pressure 5 mmHg <=5 PA Systolic Pressure 29 mmHg <36 RV Systolic Pressure 29 mmHg <36 Aortic Valve Name Value Normal AV Doppler AV Peak Velocity 98 cm/s AV Peak Gradient 4 mmHg AV Mean Gradient 2 mmHg AV VTI 17 cm AV Area (Cont Eq VTI) 3.7 cm2 >=3.0 AV Area (Cont Eq Jaguar) 2.8 cm2 AV Regurgitation 2D LVOT Area 3.6 cm2 Ventricles Name Value Normal LV Dimensions 2D/MM IVS Diastolic Thickness (2D) 0.7 cm 0.6-1.0 LVID Diastole (2D) 4.8 cm 4.2-5.8 LVIW Diastolic Thickness (2D) 0.8 cm 0.6-1.0 LVID Systole (2D) 3.0 cm 2.5-4.0 LVOT Diameter 2.1 cm LV Mass (2D Cubed) 117.25 g 88.00-224.00 LV Mass Index (2D Cubed) 54 g/m2 49-115 Relative Wall Thickness (2D) 0.34 LV Fractional Shortening/Ejection Fraction 2D/MM LV Fractional Shortening (2D) 38 % 25-43 LV EF (2D Teicholz) 68 % 52-72 LV Diastolic Volume (4C MOD) 72 ml LV EF (4C MOD) 52 % LV Diastolic Volume (2C MOD) 105 ml LV EF (2C MOD) 70 % LV Diastolic Volume (BP MOD) 89 ml 62-150 LV Diastolic Volume Index (BP MOD) 41 ml/m2 34-74 LV Systolic Volume (BP MOD) 36 ml 21-61 LV Systolic Volume Index (BP MOD) 17 ml/m2 11-31 LV EF (BP MOD) 59 % 52-72 LV Diastolic Length (4C) 7.8 cm LV Systolic Length (4C) 6.8 cm LV Stroke Volume (4C MOD) 37 ml Atria Name Value Normal LA Dimensions LA Volume (4C A-L) 35 ml RA Dimensions RA Area (4C) 11.0 cm2 <=18.0 Report Signatures
[2024-08-26] MEDS: chlordiazePOXIDE (*CRX) 25 MG CAPSULE PO ×4 (06:46→23:54)
[2024-08-26 07:00] LABS: Glucose Point of Care 132 mg/dl (65-105)
[2024-08-26] MEDS: buPROPion HCL 100 MG TABLET PO ×3 (09:12→18:09)
[2024-08-26] MEDS: busPIRone HCL 5 MG TABLET PO ×3 (09:12→18:08)
[2024-08-26] MEDS: BACLOFEN 10 MG TABLET PO ×2 (09:12→18:08)
[2024-08-26] MEDS: hydrOXYzine HCL 25 MG TABLET PO ×3 (09:12→18:08)
[2024-08-26] MEDS: CHOLECALCIFEROL 5,000 UNITS TABLET 5000 UNITS BY MOUTH (09:12)
[2024-08-26] MEDS: FERROUS SULFATE 325 MG TABLET DR BY MOUTH (09:12)
[2024-08-26] MEDS: THIAMINE HCL 100 MG TABLET PO (09:12)
[2024-08-26] MEDS: PROPRANOLOL HCL 10 MG TABLET PO ×2 (09:12→18:12)
[2024-08-26] MEDS: FOLIC ACID 1 MG TABLET PO (09:13)
[2024-08-26] MEDS: FUROSEMIDE 40 MG TABLET PO ×2 (09:13→18:08)
[2024-08-26] MEDS: SPIRONOLACTONE 50 MG TABLET 100 MG PO (09:13)
[2024-08-26] MEDS: POTASSIUM CHLORIDE 20 MEQ ER TABLET PO (09:13)
[2024-08-26] MEDS: ACIDOPHILUS/BULGARICUS CHEWABLE TABLET 1 TABLET BY MOUTH ×2 (09:13→18:08)
[2024-08-26] MEDS: PRAZOSIN HCL 1 MG CAPSULE PO ×4 (09:13→21:51)
[2024-08-26] MEDS: rifAXIMin 550 MG TABLET PO ×2 (09:13→18:08)
[2024-08-26] MEDS: GABAPENTIN 400 MG CAPSULE PO ×3 (09:13→18:08)
[2024-08-26] MEDS: LACTULOSE 20 GM/30 ML UDC PO ×2 (09:16→18:09)
[2024-08-26] MEDS: SUCRALFATE SUSP 100 MG/ML 10 ML UDC 1000 MG PO ×2 (09:16→18:09)
[2024-08-26 09:38] LABS: Basophils Percent Auto 0.6 % (0.2-1.2); Eosinophils Absolute Auto 0.1 K/mm3 (0-0.3); Eosinophils Percent Auto 1.6 % (0-4.4); Hematocrit 43.3 % (42.0-52.0); Hemoglobin 14.5 g/dL (14.0-18.0); Immature Granulocyte Absolute 0.07 K/mm3 (0.00-0.031); Immature Granulocyte Percent A 1.1 % (0-0.5); Immature Platelet Fraction Pct 3.3 % (0.9-11.2); Lymphocytes Absolute Auto 1.38 K/mm3 (0.9-3.2); Lymphocytes Percent Auto 21.9 % (18.3-44.2); Mean Corpuscular HGB Conc 33.5 g/dl (32-36); Mean Corpuscular Hemoglobin 33.6 pg (26-34); Mean Corpuscular Volume 100.5 fl (80-100); Mean Platelet Volume 10.1 fl (7.4-10.4); Monocytes Absolute Auto 0.8 K/mm3 (0.1-0.6); Monocytes Percent Auto 12.9 % (2.6-8.5); Neutrophils Absolute Auto 3.9 K/mm3 (1.3-6.7); Neutrophils Percent Auto 61.9 % (45.5-73.1); Platelet Count Result 131 k/mm3 (150-375); Red Blood Count 4.31 M/mm3 (4.6-6.20); Red Cell Distribution Width 13.2 % (11.5-14.5); White Blood Count 6.3 K/mm3 (4.5-10.0)
[2024-08-26 09:52] LABS: Alanine Aminotransferase 22 U/L (6-50); Albumin Level 3.9 g/dL (3.5-5.1); Alkaline Phosphatase 70 U/L (38-126); Anion Gap 9 mmol/L (4-12); Aspartate Amino Transferase 21 U/L (17-59); Bilirubin,Total 0.5 mg/dL (0.2-1.3); Blood Urea Nitrogen 12 mg/dL (9-20); Calcium 8.9 mg/dL (8.4-10.2); Carbon Dioxide 22 mmol/L (22-30); Chloride 103 mmol/L (98-107); Estimated CRCL calculation 135 ml/min; Estimated Glomerular Filt Rate > 60; Glucose 129 mg/dL (65-110); Magnesium 1.9 mg/dL (1.6-2.3); Potassium 3.9 mmol/L (3.4-5.0); Sodium 134 mmol/L (137-145)
[2024-08-26] MEDS: HALOPERIDOL 5 MG TABLET PO ×2 (10:50→18:09)
[2024-08-26] MEDS: ENOXAPARIN 100 MG/ML SYRINGE 95 MG SUB-Q ×2 (10:50→21:50)
--- NOTE | 2024-08-26 11:39 | P.PNIM_ITS ---
Progress Note: A&P Assessment and Plan (1) Alcohol use disorder: Code(s): F10.90 - Alcohol use, unspecified, uncomplicated Status: Acute (2) Deep vein thrombosis (DVT) of right lower extremity: Qualifiers: Affected thrombotic vein of extremity: unspecified vein of extremity Chronicity: acute Qualified Code(s): I82.401 - Acute embolism and thrombosis of unspecified deep veins of right lower extremity Code(s): I82.401 - Acute embolism and thrombosis of unspecified deep veins of right lower extremity Status: Acute (3) Pulmonary embolism: Code(s): I26.99 - Other pulmonary embolism without acute cor pulmonale Status: Acute (4) Cirrhosis: Qualifiers: Ascites presence: without ascites Hepatic cirrhosis type: alcoholic cirrhosis Qualified Code(s): K70.30 - Alcoholic cirrhosis of liver without ascites Code(s): K74.60 - Unspecified cirrhosis of liver Status: Acute Plan Patient is a 38-year-old male who presents to the ED via EMS with report of right thigh pain and concern for alcohol withdrawal. Patient is currently residing at [facility]. He has history of previous left hip fracture which he did not undergo surgical repair of. He is currently wheelchair bound. Patient reports having pain throughout his right medial upper thigh for the past 7 days. Denies any fall or injury. Denies numbness or appreciable swelling. Denies previous history of blood clots. Denies chest pain. Does admit to having some increased shortness of breath with exertion over the last 1 week. Patient also reports he is concerned he is going to begin going through alcohol withdrawal soon. He has a long history of alcohol abuse, history of liver cirrhosis. States over the past 12 days he has been drinking at least half a L of vodka per day. He last drink at 730am on 08/24. States his cousin brings him in alcohol into the longterm. States he wants to quit drinking and avoid withdrawal symptoms. Has had withdrawal sx's and self reported DTs in the past with quitting drinking. He states he has had seizures before with quitting. Denies current nausea, abdominal pain. Upon arrival to the ED vitals were stable. Venous ultrasound came back positive for thrombosis noted common femoral proximal superficial femoral distal superficial femoral and deep femoral vein. CTA chest was done which showed PE and right main pulmonary artery extending to the right lower lobe over pulmonary artery and lower lobe segmental branches with no definitive evidence of right heart strain. Stable cystic area in the right lung apex with adjacent scarring. Cirrhotic changes of the liver. started on Lovenox which will be continued therapeutic dose. Will switch to Eliquis for his newly diagnosis DVT/PE. Echo with EF 60-65% with no valvular abnormality noted. 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 Will add Librium. Ativan p.r.n. per CIWA protocol. Monitor CIWA score Chronic left hip fracture with nonunion DVT prophylaxis already on Lovenox Subjective Date/time seen: 08/26/24 11:39 Interval history: No overnight events. Denies any new complaints. Reports some shortness of breath. Has not gotten out of bed yet. Review of Systems Review of Systems: All systems reviewed & are unremarkable except as noted in HPI and below Exam Narrative: GENERAL: Appears older than stated age, in no acute distress. HEAD: Normocephalic, atraumatic. RESPIRATORY: Airway patent, respirations nonlabored. Clear to auscultation bilaterally, no rales, rhonchi, wheezing. CARDIOVASCULAR: Regular rate and rhythm without murmurs, rubs, or gallops. Peripheral pulses intact. ABDOMINAL: Abdomen is mildly distended appearing but still soft, no significant focal tenderness. Normoactive BS. MUSCULOSKELETAL: Moves all extremities. No gross deformities. Mild tenderness palpation R proximal inner thigh with chronic stria present. No significant overlying erythema, warmth, swelling. No lower extremity peripheral edema. Sensation intact throughout right lower extremity. SKIN: Warm, dry, normal color. NEURO: A&O X3. Speech clear. Cranial nerves II-XII grossly intact. No ataxic movements. PSYCHIATRIC: Appropriate mood and affect. Normal interaction. Objective Data Vital Signs Vital Signs: Vital Signs - 24 hr 08/25/24 12:00 08/25/24 14:00 08/25/24 17:25 Temperature 98.0 F Pulse Rate 95 83 95 Pulse Rate [Right Brachial Monitor] Respiratory Rate 18 Blood Pressure 122/77 Pulse Oximetry 96 Oxygen Delivery 08/25/24 16:00 08/25/24 22:00 08/25/24 20:00 Temperature 96.7 F L Pulse Rate 86 88 94 Pulse Rate [Right Brachial Monitor] Respiratory Rate 18 Blood Pressure 111/74 Pulse Oximetry 99 Oxygen Delivery 08/25/24 20:00 08/25/24 20:00 08/26/24 00:00 Temperature Pulse Rate 83 Pulse Rate [Right Brachial Monitor] Respiratory Rate Blood Pressure 115/76 Pulse Oximetry 99 Oxygen Delivery Room Air 08/26/24 00:00 08/26/24 06:00 08/26/24 04:00 Temperature 96.8 F L Pulse Rate 77 78 Pulse Rate [Right Brachial Monitor] Respiratory Rate 18 Blood Pressure 115/74 116/71 Pulse Oximetry 95 Oxygen Delivery 08/26/24 04:00 08/26/24 09:07 08/26/24 09:08 Temperature Pulse Rate 88 Pulse Rate [Right Brachial Monitor] 78 80 Respiratory Rate 17 Blood Pressure 116/84 105/75 Pulse Oximetry 97 Oxygen Delivery 08/26/24 09:12 Temperature Pulse Rate 76 Pulse Rate [Right Brachial Monitor] Respiratory Rate Blood Pressure Pulse Oximetry Oxygen Delivery Intake/Output Intake/Output: Intake & Output 08/23/24 08/24/24 08/25/24 08/26/24 23:59 23:59 23:59 23:59 Intake Total 3040 515 Output Total 800 400 Balance 2240 115 Meds/Results Medications: Active Medications Generic Name Dose Route Start Last Admin Trade Name Freq PRN Reason Stop Dose Admin Acetaminophen 1,000 mg 08/25/24 08:55 Acetaminophen 500 Mg Tablet PO Q6H PRN Pain Hydrocodone Bitart/Acetaminophen 1 tab 08/25/24 09:00 08/26/24 09:13 Hydrocodone/Acetaminophen (*Crx) 10-325 Mg Tablet PO 1 tab Q6H LIDA Administration Baclofen 10 mg 08/25/24 09:00 08/26/24 09:12 Baclofen 10 Mg Tablet PO 10 mg BID LIDA Administration Bupropion HCl 100 mg 08/25/24 09:00 08/26/24 09:12 Bupropion Hcl 100 Mg Tablet PO 100 mg TID LIDA Administration Buspirone HCl 5 mg 08/25/24 09:00 08/26/24 09:12 Buspirone Hcl 5 Mg Tablet PO 5 mg TID LIDA Administration Calcium Carbonate 500 mg 08/25/24 12:00 08/26/24 09:28 Calcium Carbonate (Tums) 500 Mg (200 Mg Elemental) PO Not Given TIDWM LIDA Chlordiazepoxide HCl 25 mg 08/25/24 06:00 08/26/24 06:46 Chlordiazepoxide (*Crx) 25 Mg Capsule PO 25 mg Q6HR LIDA Administration Diclofenac Sodium 1 applic 08/25/24 08:55 Diclofenac Sodium 1% 100 Gm Gel (*Bkc) TOPICAL BID PRN Pain Enoxaparin Sodium 95 mg 08/25/24 21:00 08/26/24 10:50 Enoxaparin 100 Mg/Ml Syringe SUB-Q 95 mg Q12HR LIDA Administration Ferrous Sulfate 325 mg 08/25/24 10:00 08/26/24 09:12 Ferrous Sulfate [address] BY MOUTH 325 mg DAILY LIDA Administration Folic Acid 1 mg 08/25/24 09:00 08/26/24 09:13 Folic Acid 1 Mg Tablet PO 1 mg DAILY LIDA Administration Furosemide 40 mg 08/25/24 09:00 08/26/24 09:13 Furosemide 40 Mg Tablet PO 40 mg BID LIDA Administration Gabapentin 400 mg 08/25/24 09:00 08/26/24 09:13 Gabapentin 400 Mg Capsule PO 400 mg TID LIDA Administration Haloperidol 5 mg 08/25/24 09:00 08/26/24 10:50 Haloperidol 5 Mg Tablet PO 5 mg BID LIDA Administration Hydroxyzine HCl 25 mg 08/25/24 09:00 08/26/24 09:12 Hydroxyzine Hcl 25 Mg Tablet PO 25 mg TID LIDA Administration Lactobacillus Acidophilus 1 tablet 08/25/24 17:00 08/26/24 09:13 Acidophilus/Bulgaricus Chewable Tablet BY MOUTH 1 tablet BID LIDA Administration Lactulose 20 gm 08/25/24 13:00 08/26/24 09:16 Lactulose 20 Gm/30 Ml Udc PO 20 gm TID LIDA Administration Lidocaine 1 patch 08/25/24 09:15 08/26/24 09:14 Lidocaine 5% Patch TRANSDERM Not Given DAILY COUNTS INCLUDE 234 BEDS AT THE [facility] Lorazepam 2 mg 08/25/24 05:53 Lorazepam Inj (*Crx) 2 Mg/Ml Vial IV PUSH Q2H PRN CIWA > 15 Lorazepam 2 mg 08/25/24 05:53 Lorazepam Inj (*Crx) 2 Mg/Ml Vial IV PUSH Q4H PRN CIWA 8-15 Lorazepam 1 mg 08/25/24 09:00 08/26/24 09:13 Lorazepam (*Crx) 1 Mg Tablet PO 1 mg Q6H LIDA Administration Magnesium Oxide 400 mg 08/25/24 21:00 08/25/24 21:23 Magnesium Oxide 400 Mg Tablet PO 400 mg HS LIDA Administration Melatonin 3 mg 08/25/24 21:00 08/25/24 21:24 Melatonin 3 Mg Tablet PO 3 mg HS LIDA Administration Miscellaneous Information 1 each 08/25/24 00:01 Menthol Biofreeze Patch Nonformulary. Can Patient Hold Till Discharge? XX 09/24/24 00:00 CLARIFY LIDA Miscellaneous Information 1 each 08/25/24 00:01 Please Clarify Where Neomycin/Bacitracin/Polymixin/Diperod Ointment Is Applied? XX 09/24/24 00:00 CLARIFY LIDA Non-Formulary Medication 1 patch 08/25/24 09:00 Menthol [Biofreeze (Menthol)] TOPICAL 09/24/24 08:59 DAILY LIDA Non-Formulary Medication 1 each 08/25/24 09:00 Hjadyrjp-Jgcrz-Pjkikll-Diperod TOPICAL 09/24/24 08:59 QID COUNTS INCLUDE 234 BEDS AT THE [facility] Ondansetron HCl 4 mg 08/25/24 08:55 08/25/24 23:47 Ondansetron Hcl Odt 4 Mg Tablet PO 4 mg Q8H PRN Administration nausea/vomiting Perflutren Lipid Microsphere 0 ml 08/25/24 05:57 Perflutren Lipid Microspheres 1.5 Ml Vial Diluted To 10 Ml Total Volume IV PUSH 08/28/24 05:59 ONCE PRN adequate visualization Protocol Potassium Chloride 20 meq 08/25/24 09:00 08/26/24 09:13 Potassium Chloride 20 Meq Er Tablet PO 20 meq DAILY LIDA Administration Prazosin HCl 1 mg 08/25/24 09:00 08/26/24 09:13 Prazosin Hcl 1 Mg Capsule PO 1 mg QID LIDA Administration Propranolol HCl 10 mg 08/25/24 09:00 08/26/24 09:12 Propranolol Hcl 10 Mg Tablet PO 10 mg BID LIDA Administration Rifaximin 550 mg 08/25/24 09:00 08/26/24 09:13 Rifaximin 550 Mg Tablet PO 550 mg BID LIDA Administration Simethicone 80 mg 08/25/24 08:55 Simethicone 80 Mg Tab.Chew PO BID PRN Abdominal Discomfort Spironolactone 100 mg 08/25/24 09:00 08/26/24 09:13 Spironolactone 50 Mg Tablet PO 100 mg DAILY LIDA Administration Sucralfate 1,000 mg 08/25/24 09:00 08/26/24 09:16 Sucralfate Susp 100 Mg/Ml 10 Ml Udc PO 1,000 mg TID LIDA Administration Thiamine HCl 100 mg 08/25/24 09:00 08/26/24 09:12 Thiamine Hcl 100 Mg Tablet PO 100 mg DAILY LIDA Administration Trazodone HCl 50 mg 08/25/24 21:00 08/25/24 21:24 Trazodone Hcl 50 Mg Tablet PO 50 mg QHS LIDA Administration Vitamin D 5,000 units 08/25/24 10:00 08/26/24 09:12 Cholecalciferol 5,000 Units Tablet BY MOUTH 5,000 units DAILY LIDA Administration Radiology Results: ITS Impressions Venous Doppler Study 08/24/24 23:10 IMPRESSION: Positive right lower extremity venous US. DVT in the right lower extremity. Chest CTA 08/25/24 05:52 Impression: Pulmonary embolus in the right main pulmonary artery extending to the right lower lobar pulmonary artery and lower lobe segmental branches. No definite evidence of right heart strain. Stable cystic area in the right lung apex with adjacent scarring. Cirrhotic change of the liver. Labs Labs: Laboratory Results - last 24 hr 08/25/24 08/26/24 08/26/24 18:00 01:18 06:50 WBC RBC Hgb Hct MCV MCH MCHC RDW Plt Count MPV Immature Gran % (Auto) Neut % (Auto) Lymph % (Auto) [place] % (Auto) Eos % (Auto) Baso % (Auto) Lymph # (Auto) [place] # (Auto) Eos # (Auto) Baso # (Auto) Abs Immat Gran (auto) Absolute Neuts (auto) Absolute Nucleated RBC Nucleated RBC % % Immature Plt Fraction Sodium Potassium Chloride Carbon Dioxide Anion Gap BUN Creatinine Estim Creat Clear Calc Estimated GFR Glucose POC Capillary Glucose 131 H 130 H 132 H Calcium Magnesium Total Bilirubin AST ALT Alkaline Phosphatase Total Protein Albumin 08/26/24 08/26/24 09:26 09:27 WBC 6.3 RBC 4.31 L Hgb 14.5 Hct 43.3 MCV 100.5 H D MCH 33.6 MCHC 33.5 RDW 13.2 Plt Count 131 L MPV 10.1 Immature Gran % (Auto) 1.1 H Neut % (Auto) 61.9 Lymph % (Auto) 21.9 [place] % (Auto) 12.9 H Eos % (Auto) 1.6 Baso % (Auto) 0.6 Lymph # (Auto) 1.38 [place] # (Auto) 0.8 H Eos # (Auto) 0.1 Baso # (Auto) 0.0 Abs Immat Gran (auto) 0.07 H Absolute Neuts (auto) 3.9 Absolute Nucleated RBC 0.000 Nucleated RBC % 0.0 % Immature Plt Fraction 3.3 Sodium 134 L Potassium 3.9 Chloride 103 Carbon Dioxide 22 Anion Gap 9 BUN 12 Creatinine 0.70 Estim Creat Clear Calc 135 Estimated GFR > 60 Glucose 129 H POC Capillary Glucose Calcium 8.9 Magnesium 1.9 Total Bilirubin 0.5 AST 21 ALT 22 Alkaline Phosphatase 70 Total Protein 7.0 Albumin 3.9
[2024-08-26 12:12] LABS: Glucose Point of Care 179 mg/dl (65-105)
[2024-08-26 18:11] LABS: Glucose Point of Care 114 mg/dl (65-105)
[2024-08-26] MEDS: MELATONIN 3 MG TABLET PO (21:50)
[2024-08-26] MEDS: traZODone HCL 50 MG TABLET PO (21:50)
[2024-08-26] MEDS: MAGNESIUM OXIDE 400 MG TABLET PO (21:51)
[2024-08-27] VITALS (17 sets, daily range): BP systolic 105–124; BP diastolic 68–85; PULSE 64–88; RESP 15–20; TEMP 36.1–36.5; O2SAT 92–97
[2024-08-27] MEDS: guaiFENesin/DEXTROMETHORPHAN 10 ML UDC 5 ML PO (00:25)
[2024-08-27 00:38] LABS: Glucose Point of Care 132 mg/dl (65-105)
--- NOTE | 2024-08-27 02:08 | PC.NURSE ---
Daylight Savings Time For Daylight Savings Time Ending in the Fall - Clocks are moved back. For Daylight Savings Time Beginning in the Spring - Clocks are moved ahead. For [facility], the time of change occurs at 0200 hrs. Time is taken from the dining room server. This entry on the patient's chart recognizes the change in time reflected during documentation. Example: 2 entries for vital signs may be charted for 0200 hrs.
[2024-08-27] MEDS: HYDROcodone/acetaminophen (*CRX) 10-325 MG TABLET 1 TAB PO ×4 (03:31→20:54)
[2024-08-27] MEDS: LORazepam (*CRX) 1 MG TABLET PO ×4 (03:32→20:53)
[2024-08-27] MEDS: ONDANSETRON HCL ODT 4 MG TABLET PO (03:52)
[2024-08-27] MEDS: chlordiazePOXIDE (*CRX) 25 MG CAPSULE PO ×3 (05:40→18:01)
[2024-08-27 05:44] LABS: Glucose Point of Care 142 mg/dl (65-105)
[2024-08-27 05:57] LABS: Basophils Absolute Auto 0.1 K/mm3 (0.0-0.1); Basophils Percent Auto 0.5 % (0.2-1.2); Eosinophils Absolute Auto 0.1 K/mm3 (0-0.3); Eosinophils Percent Auto 1.3 % (0-4.4); Hemoglobin 13.7 g/dL (14.0-18.0); Immature Granulocyte Absolute 0.07 K/mm3 (0.00-0.031); Immature Granulocyte Percent A 0.8 % (0-0.5); Immature Platelet Fraction Pct 4.1 % (0.9-11.2); Lymphocytes Absolute Auto 1.25 K/mm3 (0.9-3.2); Lymphocytes Percent Auto 13.7 % (18.3-44.2); Mean Corpuscular HGB Conc 34.3 g/dl (32-36); Mean Corpuscular Hemoglobin 33.9 pg (26-34); Mean Platelet Volume 10.5 fl (7.4-10.4); Monocytes Percent Auto 10.5 % (2.6-8.5); Neutrophils Absolute Auto 6.7 K/mm3 (1.3-6.7); Neutrophils Percent Auto 73.2 % (45.5-73.1); Platelet Count Result 136 k/mm3 (150-375); Red Blood Count 4.04 M/mm3 (4.6-6.20); Red Cell Distribution Width 12.9 % (11.5-14.5); White Blood Count 9.1 K/mm3 (4.5-10.0)
[2024-08-27 06:08] LABS: Alanine Aminotransferase 21 U/L (6-50); Albumin Level 3.7 g/dL (3.5-5.1); Alkaline Phosphatase 84 U/L (38-126); Anion Gap 7 mmol/L (4-12); Aspartate Amino Transferase 21 U/L (17-59); Bilirubin,Total 0.3 mg/dL (0.2-1.3); Blood Urea Nitrogen 10 mg/dL (9-20); Calcium 9.1 mg/dL (8.4-10.2); Carbon Dioxide 28 mmol/L (22-30); Chloride 99 mmol/L (98-107); Estimated CRCL calculation 135 ml/min; Estimated Glomerular Filt Rate > 60; Glucose 130 mg/dL (65-110); Magnesium 1.7 mg/dL (1.6-2.3); Potassium 3.9 mmol/L (3.4-5.0); Sodium 134 mmol/L (137-145)
[2024-08-27] MEDS: hydrOXYzine HCL 25 MG TABLET PO ×3 (08:52→18:00)
[2024-08-27] MEDS: CHOLECALCIFEROL 5,000 UNITS TABLET 5000 UNITS BY MOUTH (08:53)
[2024-08-27] MEDS: FUROSEMIDE 40 MG TABLET PO ×2 (08:53→18:01)
[2024-08-27] MEDS: SPIRONOLACTONE 50 MG TABLET 100 MG PO (08:53)
[2024-08-27] MEDS: HALOPERIDOL 5 MG TABLET PO ×2 (08:53→18:00)
[2024-08-27] MEDS: FERROUS SULFATE 325 MG TABLET DR BY MOUTH (08:53)
[2024-08-27] MEDS: PRAZOSIN HCL 1 MG CAPSULE PO ×4 (08:53→21:59)
[2024-08-27] MEDS: busPIRone HCL 5 MG TABLET PO ×3 (08:53→18:00)
[2024-08-27] MEDS: buPROPion HCL 100 MG TABLET PO ×3 (08:53→18:00)
[2024-08-27] MEDS: rifAXIMin 550 MG TABLET PO ×2 (08:53→18:01)
[2024-08-27] MEDS: BACLOFEN 10 MG TABLET PO ×2 (08:53→18:00)
[2024-08-27] MEDS: FOLIC ACID 1 MG TABLET PO (08:53)
[2024-08-27] MEDS: POTASSIUM CHLORIDE 20 MEQ ER TABLET PO (08:53)
[2024-08-27] MEDS: ACIDOPHILUS/BULGARICUS CHEWABLE TABLET 1 TABLET BY MOUTH ×2 (08:53→18:00)
[2024-08-27] MEDS: THIAMINE HCL 100 MG TABLET PO (08:53)
[2024-08-27] MEDS: GABAPENTIN 400 MG CAPSULE PO ×3 (08:53→18:00)
[2024-08-27] MEDS: ENOXAPARIN 100 MG/ML SYRINGE 95 MG SUB-Q (08:54)
[2024-08-27] MEDS: PROPRANOLOL HCL 10 MG TABLET PO ×2 (08:54→18:03)
[2024-08-27] MEDS: LACTULOSE 20 GM/30 ML UDC PO ×2 (08:54→18:01)
[2024-08-27] MEDS: SUCRALFATE SUSP 100 MG/ML 10 ML UDC 1000 MG PO ×2 (08:54→18:01)
--- NOTE | 2024-08-27 11:44 | P.PNIM_ITS ---
Progress Note: A&P Assessment and Plan (1) Alcohol use disorder: Code(s): F10.90 - Alcohol use, unspecified, uncomplicated Status: Acute (2) Deep vein thrombosis (DVT) of right lower extremity: Qualifiers: Affected thrombotic vein of extremity: unspecified vein of extremity Chronicity: acute Qualified Code(s): I82.401 - Acute embolism and thrombosis of unspecified deep veins of right lower extremity Code(s): I82.401 - Acute embolism and thrombosis of unspecified deep veins of right lower extremity Status: Acute (3) Pulmonary embolism: Code(s): I26.99 - Other pulmonary embolism without acute cor pulmonale Status: Acute (4) Cirrhosis: Qualifiers: Ascites presence: without ascites Hepatic cirrhosis type: alcoholic cirrhosis Qualified Code(s): K70.30 - Alcoholic cirrhosis of liver without ascites Code(s): K74.60 - Unspecified cirrhosis of liver Status: Acute Plan Patient is a 38-year-old male who presents to the ED via EMS with report of right thigh pain and concern for alcohol withdrawal. Patient is currently residing at [facility]. He has history of previous left hip fracture which he did not undergo surgical repair of. He is currently wheelchair bound. Patient reports having pain throughout his right medial upper thigh for the past 7 days. Denies any fall or injury. Denies numbness or appreciable swelling. Denies previous history of blood clots. Denies chest pain. Does admit to having some increased shortness of breath with exertion over the last 1 week. Patient also reports he is concerned he is going to begin going through alcohol withdrawal soon. He has a long history of alcohol abuse, history of liver cirrhosis. States over the past 12 days he has been drinking at least half a L of vodka per day. He last drink at 730am on 08/24. States his cousin brings him in alcohol into the long term. States he wants to quit drinking and avoid withdrawal symptoms. Has had withdrawal sx's and self reported DTs in the past with quitting drinking. He states he has had seizures before with quitting. Denies current nausea, abdominal pain. Upon arrival to the ED vitals were stable. Venous ultrasound came back positive for thrombosis noted common femoral proximal superficial femoral distal superficial femoral and deep femoral vein. CTA chest was done which showed PE and right main pulmonary artery extending to the right lower lobe over pulmonary artery and lower lobe segmental branches with no definitive evidence of right heart strain. Stable cystic area in the right lung apex with adjacent scarring. Cirrhotic changes of the liver. started on Lovenox which will be continued therapeutic dose. Will switch to Eliquis for his newly diagnosis DVT/PE. Echo with EF 60-65% with no valvular abnormality noted. 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 On Librium. Ativan p.r.n. per CIWA protocol. Monitor CIWA score Chronic left hip fracture with nonunion DVT prophylaxis already on Lovenox which will be switched to Eliquis Subjective Date/time seen: 08/27/24 11:44 Interval history: no overnight events. No new complaints. CIWA score reviewed. Review of Systems Review of Systems: All systems reviewed & are unremarkable except as noted in HPI and below Exam Narrative: GENERAL: Appears older than stated age, in no acute distress. HEAD: Normocephalic, atraumatic. RESPIRATORY: Airway patent, respirations nonlabored. Clear to auscultation bilaterally, no rales, rhonchi, wheezing. CARDIOVASCULAR: Regular rate and rhythm without murmurs, rubs, or gallops. Peripheral pulses intact. ABDOMINAL: Abdomen is mildly distended appearing but still soft, no significant focal tenderness. Normoactive BS. MUSCULOSKELETAL: Moves all extremities. No gross deformities. Mild tenderness palpation R proximal inner thigh with chronic stria present. No significant overlying erythema, warmth, swelling. No lower extremity peripheral edema. Sensation intact throughout right lower extremity. SKIN: Warm, dry, normal color. NEURO: A&O X3. Speech clear. Cranial nerves II-XII grossly intact. No ataxic movements. PSYCHIATRIC: Appropriate mood and affect. Normal interaction. Objective Data Vital Signs Vital Signs: Vital Signs - 24 hr 08/26/24 13:35 08/26/24 16:00 08/26/24 16:00 Temperature 97.2 F L Pulse Rate 75 72 Pulse Rate [Right Brachial Monitor] 79 Respiratory Rate 16 Blood Pressure 126/80 Pulse Oximetry 99 Oxygen Delivery 08/26/24 18:06 08/26/24 18:12 08/26/24 22:00 Temperature 97.4 F L 96.9 F L Pulse Rate 78 80 82 Pulse Rate [Right Brachial Monitor] Respiratory Rate 16 18 Blood Pressure 115/80 150/74 H Pulse Oximetry 98 99 Oxygen Delivery 08/26/24 21:50 08/26/24 20:00 08/26/24 20:00 Temperature Pulse Rate 75 Pulse Rate [Right Brachial Monitor] 72 Respiratory Rate Blood Pressure 115/74 Pulse Oximetry 99 Oxygen Delivery Room Air 08/27/24 00:00 08/27/24 00:05 08/27/24 00:45 Temperature 97.1 F L Pulse Rate 81 76 Pulse Rate [Right Brachial Monitor] 76 Respiratory Rate 18 Blood Pressure 105/68 105/68 Pulse Oximetry 96 Oxygen Delivery 08/27/24 04:01 08/27/24 04:00 08/27/24 06:00 Temperature 97 F L Pulse Rate 88 87 Pulse Rate [Right Brachial Monitor] 87 Respiratory Rate 18 Blood Pressure 118/73 118/73 Pulse Oximetry 92 Oxygen Delivery 08/27/24 08:51 08/27/24 08:54 08/27/24 08:00 Temperature Pulse Rate 82 84 Pulse Rate [Right Brachial Monitor] 80 Respiratory Rate 15 Blood Pressure 124/77 Pulse Oximetry 97 Oxygen Delivery 08/27/24 08:00 08/27/24 08:50 Temperature Pulse Rate 85 Pulse Rate [Right Brachial Monitor] Respiratory Rate Blood Pressure Pulse Oximetry Oxygen Delivery Room Air Intake/Output Intake/Output: Intake & Output 08/24/24 08/25/24 08/26/24 08/27/24 23:59 23:59 23:59 22:59 Intake Total 3040 1475 480 Output Total 800 650 450 Balance 2240 825 30 Meds/Results Medications: Active Medications Generic Name Dose Route Start Last Admin Trade Name Parthq PRN Reason Stop Dose Admin Acetaminophen 1,000 mg 08/25/24 08:55 Acetaminophen 500 Mg Tablet PO Q6H PRN Pain Hydrocodone Bitart/Acetaminophen 1 tab 08/25/24 09:00 08/27/24 08:53 Hydrocodone/Acetaminophen (*Crx) 10-325 Mg Tablet PO 1 tab Q6H LIDA Administration Baclofen 10 mg 08/25/24 09:00 08/27/24 08:53 Baclofen 10 Mg Tablet PO 10 mg BID LIDA Administration Bupropion HCl 100 mg 08/25/24 09:00 08/27/24 08:53 Bupropion Hcl 100 Mg Tablet PO 100 mg TID LIDA Administration Buspirone HCl 5 mg 08/25/24 09:00 08/27/24 08:53 Buspirone Hcl 5 Mg Tablet PO 5 mg TID LIDA Administration Calcium Carbonate 500 mg 08/25/24 12:00 08/27/24 08:47 Calcium Carbonate (Tums) 500 Mg (200 Mg Elemental) PO Not Given TIDWM [facility] Chlordiazepoxide HCl 25 mg 08/25/24 06:00 08/27/24 05:40 Chlordiazepoxide (*Crx) 25 Mg Capsule PO 25 mg Q6HR LIDA Administration Diclofenac Sodium 1 applic 08/25/24 08:55 Diclofenac Sodium 1% 100 Gm Gel (*Bkc) TOPICAL BID PRN Pain Enoxaparin Sodium 95 mg 08/25/24 21:00 08/27/24 08:54 Enoxaparin 100 Mg/Ml Syringe SUB-Q 95 mg Q12HR [facility] Administration Ferrous Sulfate 325 mg 08/25/24 10:00 08/27/24 08:53 Ferrous Sulfate [address] BY MOUTH 325 mg DAILY LIDA Administration Folic Acid 1 mg 08/25/24 09:00 08/27/24 08:53 Folic Acid 1 Mg Tablet PO 1 mg DAILY [facility] Administration Furosemide 40 mg 08/25/24 09:00 08/27/24 08:53 Furosemide 40 Mg Tablet PO 40 mg BID LIDA Administration Gabapentin 400 mg 08/25/24 09:00 08/27/24 08:53 Gabapentin 400 Mg Capsule PO 400 mg TID [facility] Administration Guaifenesin/Dextromethorphan 5 ml 08/27/24 00:05 08/27/24 00:25 Guaifenesin/Dextromethorphan 10 Ml Udc PO 5 ml Q4H PRN Administration Cough Haloperidol 5 mg 08/25/24 09:00 08/27/24 08:53 Haloperidol 5 Mg Tablet PO 5 mg BID LIDA Administration Hydroxyzine HCl 25 mg 08/25/24 09:00 08/27/24 08:52 Hydroxyzine Hcl 25 Mg Tablet PO 25 mg TID LIDA Administration Lactobacillus Acidophilus 1 tablet 08/25/24 17:00 08/27/24 08:53 Acidophilus/Bulgaricus Chewable Tablet BY MOUTH 1 tablet BID LIDA Administration Lactulose 20 gm 08/25/24 13:00 08/27/24 08:54 Lactulose 20 Gm/30 Ml Udc PO 20 gm TID LIDA Administration Lidocaine 1 patch 08/25/24 09:15 08/27/24 08:54 Lidocaine 5% Patch TRANSDERM Not Given DAILY LIDA Lorazepam 2 mg 08/25/24 05:53 Lorazepam Inj (*Crx) 2 Mg/Ml Vial IV PUSH Q2H PRN CIWA > 15 Lorazepam 2 mg 08/25/24 05:53 Lorazepam Inj (*Crx) 2 Mg/Ml Vial IV PUSH Q4H PRN CIWA 8-15 Lorazepam 1 mg 08/25/24 09:00 08/27/24 08:53 Lorazepam (*Crx) 1 Mg Tablet PO 1 mg Q6H LIDA Administration Magnesium Oxide 400 mg 08/25/24 21:00 08/26/24 21:51 Magnesium Oxide 400 Mg Tablet PO 400 mg HS LIDA Administration Melatonin 3 mg 08/25/24 21:00 08/26/24 21:50 Melatonin 3 Mg Tablet PO 3 mg HS LIDA Administration Ondansetron HCl 4 mg 08/25/24 08:55 08/27/24 03:52 Ondansetron Hcl Odt 4 Mg Tablet PO 4 mg Q8H PRN Administration nausea/vomiting Perflutren Lipid Microsphere 0 ml 08/25/24 05:57 Perflutren Lipid Microspheres 1.5 Ml Vial Diluted To 10 Ml Total Volume IV PUSH 08/28/24 05:59 ONCE PRN adequate visualization Protocol Potassium Chloride 20 meq 08/25/24 09:00 08/27/24 08:53 Potassium Chloride 20 Meq Er Tablet PO 20 meq DAILY LIDA Administration Prazosin HCl 1 mg 08/25/24 09:00 08/27/24 08:53 Prazosin Hcl 1 Mg Capsule PO 1 mg QID LIDA Administration Propranolol HCl 10 mg 08/25/24 09:00 08/27/24 08:54 Propranolol Hcl 10 Mg Tablet PO 10 mg BID LIDA Administration Rifaximin 550 mg 08/25/24 09:00 08/27/24 08:53 Rifaximin 550 Mg Tablet PO 550 mg BID LIDA Administration Simethicone 80 mg 08/25/24 08:55 Simethicone 80 Mg Tab.Chew PO BID PRN Abdominal Discomfort Spironolactone 100 mg 08/25/24 09:00 08/27/24 08:53 Spironolactone 50 Mg Tablet PO 100 mg DAILY LIDA Administration Sucralfate 1,000 mg 08/25/24 09:00 08/27/24 08:54 Sucralfate Susp 100 Mg/Ml 10 Ml Udc PO 1,000 mg TID LIDA Administration Thiamine HCl 100 mg 08/25/24 09:00 08/27/24 08:53 Thiamine Hcl 100 Mg Tablet PO 100 mg DAILY LIDA Administration Trazodone HCl 50 mg 08/25/24 21:00 08/26/24 21:50 Trazodone Hcl 50 Mg Tablet PO 50 mg QHS LIDA Administration Vitamin D 5,000 units 08/25/24 10:00 08/27/24 08:53 Cholecalciferol 5,000 Units Tablet BY MOUTH 5,000 units DAILY LIDA Administration Radiology Results: ITS Impressions Venous Doppler Study 08/24/24 23:10 IMPRESSION: Positive right lower extremity venous US. DVT in the right lower extremity. Chest CTA 08/25/24 05:52 Impression: Pulmonary embolus in the right main pulmonary artery extending to the right lower lobar pulmonary artery and lower lobe segmental branches. No definite evidence of right heart strain. Stable cystic area in the right lung apex with adjacent scarring. Cirrhotic change of the liver. Labs Labs: Laboratory Results - last 24 hr 08/26/24 08/27/24 08/27/24 18:07 00:04 05:23 WBC 9.1 RBC 4.04 L Hgb 13.7 L Hct 40.0 L MCV 99.0 MCH 33.9 MCHC 34.3 RDW 12.9 Plt Count 136 L MPV 10.5 H Immature Gran % (Auto) 0.8 H Neut % (Auto) 73.2 H Lymph % (Auto) 13.7 L [place] % (Auto) 10.5 H Eos % (Auto) 1.3 Baso % (Auto) 0.5 Lymph # (Auto) 1.25 Newton # (Auto) 1.0 H Eos # (Auto) 0.1 Baso # (Auto) 0.1 Abs Immat Gran (auto) 0.07 H Absolute Neuts (auto) 6.7 Absolute Nucleated RBC 0.000 Nucleated RBC % 0.0 % Immature Plt Fraction 4.1 Sodium 134 L Potassium 3.9 Chloride 99 Carbon Dioxide 28 Anion Gap 7 BUN 10 Creatinine 0.70 Estim Creat Clear Calc 135 Estimated GFR > 60 Glucose 130 H POC Capillary Glucose 114 H 132 H Calcium 9.1 Magnesium 1.7 Total Bilirubin 0.3 AST 21 ALT 21 Alkaline Phosphatase 84 Total Protein 7.0 Albumin 3.7 08/27/24 05:41 WBC RBC Hgb Hct MCV MCH MCHC RDW Plt Count MPV Immature Gran % (Auto) Neut % (Auto) Lymph % (Auto) Newton % (Auto) Eos % (Auto) Baso % (Auto) Lymph # (Auto) [place] # (Auto) Eos # (Auto) Baso # (Auto) Abs Immat Gran (auto) Absolute Neuts (auto) Absolute Nucleated RBC Nucleated RBC % % Immature Plt Fraction Sodium Potassium Chloride Carbon Dioxide Anion Gap BUN Creatinine Estim Creat Clear Calc Estimated GFR Glucose POC Capillary Glucose 142 H Calcium Magnesium Total Bilirubin AST ALT Alkaline Phosphatase Total Protein Albumin
[2024-08-27 12:16] LABS: Glucose Point of Care 134 mg/dl (65-105)
[2024-08-27 18:08] LABS: Glucose Point of Care 133 mg/dl (65-105)
[2024-08-27] MEDS: MELATONIN 3 MG TABLET PO (20:53)
[2024-08-27] MEDS: APIXABAN 5 MG TABLET 10 MG PO (20:54)
[2024-08-27] MEDS: MAGNESIUM OXIDE 400 MG TABLET PO (20:54)
[2024-08-27] MEDS: traZODone HCL 50 MG TABLET PO (20:54)
[2024-08-27 22:17] LABS: Glucose Point of Care 147 mg/dl (65-105)
[2024-08-28] VITALS (14 sets, daily range): BP systolic 104–120; BP diastolic 61–82; PULSE 69–83; RESP 16–18; TEMP 35.7–36.4; O2SAT 94–98
[2024-08-28] MEDS: chlordiazePOXIDE (*CRX) 25 MG CAPSULE PO ×4 (00:16→21:43)
[2024-08-28 01:36] LABS: Glucose Point of Care 168 mg/dl (65-105)
[2024-08-28] MEDS: HYDROcodone/acetaminophen (*CRX) 10-325 MG TABLET 1 TAB PO ×4 (03:55→21:43)
[2024-08-28] MEDS: LORazepam (*CRX) 1 MG TABLET PO ×4 (03:55→21:43)
[2024-08-28 05:47] LABS: Basophils Absolute Auto 0.1 K/mm3 (0.0-0.1); Basophils Percent Auto 1.4 % (0.2-1.2); Eosinophils Absolute Auto 0.1 K/mm3 (0-0.3); Eosinophils Percent Auto 2.3 % (0-4.4); Hematocrit 41.1 % (42.0-52.0); Hemoglobin 13.8 g/dL (14.0-18.0); Immature Granulocyte Absolute 0.21 K/mm3 (0.00-0.031); Immature Granulocyte Percent A 3.4 % (0-0.5); Lymphocytes Percent Auto 19.3 % (18.3-44.2); Mean Corpuscular HGB Conc 33.6 g/dl (32-36); Mean Corpuscular Hemoglobin 32.9 pg (26-34); Mean Corpuscular Volume 98.1 fl (80-100); Mean Platelet Volume 9.8 fl (7.4-10.4); Monocytes Absolute Auto 0.9 K/mm3 (0.1-0.6); Monocytes Percent Auto 13.8 % (2.6-8.5); Neutrophils Absolute Auto 3.7 K/mm3 (1.3-6.7); Neutrophils Percent Auto 59.8 % (45.5-73.1); Nucleated Red Blood Cells Perc 0.5 % (0.0-0.2); Platelet Count Result 143 k/mm3 (150-375); Red Blood Count 4.19 M/mm3 (4.6-6.20); Red Cell Distribution Width 12.6 % (11.5-14.5); White Blood Count 6.2 K/mm3 (4.5-10.0)
[2024-08-28 05:58] LABS: Alanine Aminotransferase 24 U/L (6-50); Albumin Level 3.8 g/dL (3.5-5.1); Alkaline Phosphatase 74 U/L (38-126); Anion Gap 4 mmol/L (4-12); Aspartate Amino Transferase 23 U/L (17-59); Bilirubin,Total 0.4 mg/dL (0.2-1.3); Blood Urea Nitrogen 7 mg/dL (9-20); Carbon Dioxide 33 mmol/L (22-30); Chloride 96 mmol/L (98-107); Estimated CRCL calculation 119 ml/min; Estimated Glomerular Filt Rate > 60; Glucose 129 mg/dL (65-110); Magnesium 2.1 mg/dL (1.6-2.3); Potassium 3.6 mmol/L (3.4-5.0); Sodium 133 mmol/L (137-145)
[2024-08-28 06:25] LABS: Glucose Point of Care 116 mg/dl (65-105)
[2024-08-28] MEDS: CALCIUM CARBONATE (TUMS) 500 MG (200 MG ELEMENTAL) PO ×3 (09:16→17:19)
[2024-08-28] MEDS: APIXABAN 5 MG TABLET 10 MG PO ×2 (09:17→21:42)
[2024-08-28] MEDS: ACIDOPHILUS/BULGARICUS CHEWABLE TABLET 1 TABLET BY MOUTH ×2 (09:17→17:19)
[2024-08-28] MEDS: FUROSEMIDE 40 MG TABLET PO ×2 (09:18→17:20)
[2024-08-28] MEDS: BACLOFEN 10 MG TABLET PO ×2 (09:18→17:19)
[2024-08-28] MEDS: buPROPion HCL 100 MG TABLET PO ×3 (09:18→17:19)
[2024-08-28] MEDS: FOLIC ACID 1 MG TABLET PO (09:18)
[2024-08-28] MEDS: GABAPENTIN 400 MG CAPSULE PO ×3 (09:18→17:20)
[2024-08-28] MEDS: busPIRone HCL 5 MG TABLET PO ×3 (09:18→17:19)
[2024-08-28] MEDS: FERROUS SULFATE 325 MG TABLET DR BY MOUTH (09:18)
[2024-08-28] MEDS: HALOPERIDOL 5 MG TABLET PO ×2 (09:19→17:20)
[2024-08-28] MEDS: hydrOXYzine HCL 25 MG TABLET PO ×3 (09:19→17:20)
[2024-08-28] MEDS: rifAXIMin 550 MG TABLET PO ×2 (09:19→17:21)
[2024-08-28] MEDS: POTASSIUM CHLORIDE 20 MEQ ER TABLET PO (09:19)
[2024-08-28] MEDS: SPIRONOLACTONE 50 MG TABLET 100 MG PO (09:19)
[2024-08-28] MEDS: SUCRALFATE SUSP 100 MG/ML 10 ML UDC 1000 MG PO ×3 (09:20→17:21)
[2024-08-28] MEDS: THIAMINE HCL 100 MG TABLET PO (09:21)
[2024-08-28] MEDS: PROPRANOLOL HCL 10 MG TABLET PO ×2 (09:22→17:20)
[2024-08-28] MEDS: CHOLECALCIFEROL 5,000 UNITS TABLET 5000 UNITS BY MOUTH (09:23)
--- NOTE | 2024-08-28 11:44 | P.PNIM_ITS ---
Progress Note: A&P Assessment and Plan (1) Alcohol use disorder: Code(s): F10.90 - Alcohol use, unspecified, uncomplicated Status: Acute (2) Deep vein thrombosis (DVT) of right lower extremity: Qualifiers: Affected thrombotic vein of extremity: unspecified vein of extremity Chronicity: acute Qualified Code(s): I82.401 - Acute embolism and thrombosis of unspecified deep veins of right lower extremity Code(s): I82.401 - Acute embolism and thrombosis of unspecified deep veins of right lower extremity Status: Acute (3) Pulmonary embolism: Code(s): I26.99 - Other pulmonary embolism without acute cor pulmonale Status: Acute (4) Cirrhosis: Qualifiers: Ascites presence: without ascites Hepatic cirrhosis type: alcoholic cirrhosis Qualified Code(s): K70.30 - Alcoholic cirrhosis of liver without ascites Code(s): K74.60 - Unspecified cirrhosis of liver Status: Acute Plan Patient is a 38-year-old male who presents to the ED via EMS with report of right thigh pain and concern for alcohol withdrawal. Patient is currently residing at [facility]. He has history of previous left hip fracture which he did not undergo surgical repair of. He is currently wheelchair bound. Patient reports having pain throughout his right medial upper thigh for the past 7 days. Denies any fall or injury. Denies numbness or appreciable swelling. Denies previous history of blood clots. Denies chest pain. Does admit to having some increased shortness of breath with exertion over the last 1 week. Patient also reports he is concerned he is going to begin going through alcohol withdrawal soon. He has a long history of alcohol abuse, history of liver cirrhosis. States over the past 12 days he has been drinking at least half a L of vodka per day. He last drink at 730am on 08/24. States his cousin brings him in alcohol into the [facility]. States he wants to quit drinking and avoid withdrawal symptoms. Has had withdrawal sx's and self reported DTs in the past with quitting drinking. He states he has had seizures before with quitting. Denies current nausea, abdominal pain. Upon arrival to the ED vitals were stable. Venous ultrasound came back positive for thrombosis noted common femoral proximal superficial femoral distal superficial femoral and deep femoral vein. CTA chest was done which showed PE and right main pulmonary artery extending to the right lower lobe over pulmonary artery and lower lobe segmental branches with no definitive evidence of right heart strain. Stable cystic area in the right lung apex with adjacent scarring. Cirrhotic changes of the liver. started on Lovenox which will be continued therapeutic dose. Will switch to Eliquis for his newly diagnosis DVT/PE. Echo with EF 60-65% with no valvular abnormality noted. 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 On Librium. Ativan p.r.n. per CIWA protocol. Monitor CIWA score. Lower Librium today. Chronic left hip fracture with nonunion DVT prophylaxis already on Lovenox which will be switched to Eliquis Subjective Date/time seen: 08/28/24 11:44 Interval history: No overnight events. CIWA score reviewed. Feels little drowsy. Has not worked with therapy. Review of Systems Review of Systems: All systems reviewed & are unremarkable except as noted in HPI and below Exam Narrative: GENERAL: Appears older than stated age, in no acute distress. HEAD: Normocephalic, atraumatic. RESPIRATORY: Airway patent, respirations nonlabored. Clear to auscultation bilaterally, no rales, rhonchi, wheezing. CARDIOVASCULAR: Regular rate and rhythm without murmurs, rubs, or gallops. Peripheral pulses intact. ABDOMINAL: Abdomen is mildly distended appearing but still soft, no significant focal tenderness. Normoactive BS. MUSCULOSKELETAL: Moves all extremities. No gross deformities. Mild tenderness palpation R proximal inner thigh with chronic stria present. No significant overlying erythema, warmth, swelling. No lower extremity peripheral edema. Sensation intact throughout right lower extremity. SKIN: Warm, dry, normal color. NEURO: A&O X3. Speech clear. Cranial nerves II-XII grossly intact. No ataxic movements. PSYCHIATRIC: Appropriate mood and affect. Normal interaction. Objective Data Vital Signs Vital Signs: Vital Signs - 24 hr 08/27/24 12:00 08/27/24 12:00 08/27/24 13:13 Temperature 97.3 F L Pulse Rate 76 64 Pulse Rate [Right Brachial Monitor] 76 Respiratory Rate 16 Blood Pressure 112/78 Pulse Oximetry 94 Oxygen Delivery 08/27/24 16:00 08/27/24 16:00 08/27/24 17:51 Temperature Pulse Rate 78 80 Pulse Rate [Right Brachial Monitor] 78 Respiratory Rate 15 Blood Pressure 123/85 Pulse Oximetry 97 Oxygen Delivery 08/27/24 18:03 08/27/24 20:38 08/27/24 20:00 Temperature 97.7 F Pulse Rate 74 75 Pulse Rate [Right Brachial Monitor] 75 Respiratory Rate 20 Blood Pressure 111/72 111/72 Pulse Oximetry 96 Oxygen Delivery 08/28/24 00:00 08/27/24 20:00 08/28/24 00:00 Temperature Pulse Rate 76 76 Pulse Rate [Right Brachial Monitor] 73 Respiratory Rate Blood Pressure 120/82 Pulse Oximetry Oxygen Delivery 08/27/24 20:54 08/28/24 04:00 08/28/24 06:16 Temperature 96.3 F L Pulse Rate 72 73 Pulse Rate [Right Brachial Monitor] Respiratory Rate 18 Blood Pressure 104/65 Pulse Oximetry 96 97 Oxygen Delivery Room Air 08/28/24 04:00 08/28/24 09:15 08/28/24 09:22 Temperature Pulse Rate 80 Pulse Rate [Right Brachial Monitor] 73 Respiratory Rate Blood Pressure 104/65 115/65 Pulse Oximetry Oxygen Delivery 08/28/24 08:00 Temperature Pulse Rate 76 Pulse Rate [Right Brachial Monitor] Respiratory Rate Blood Pressure Pulse Oximetry Oxygen Delivery Intake/Output Intake/Output: Intake & Output 08/26/24 08/27/24 08/27/24 08/28/24 00:59 00:59 23:59 23:59 Intake Total 220 Output Total 2 Balance 218 Meds/Results Medications: Active Medications Generic Name Dose Route Start Last Admin Trade Name Freq PRN Reason Stop Dose Admin Acetaminophen 1,000 mg 08/25/24 08:55 Acetaminophen 500 Mg Tablet PO Q6H PRN Pain Hydrocodone Bitart/Acetaminophen 1 tab 08/25/24 09:00 08/28/24 09:19 Hydrocodone/Acetaminophen (*Crx) 10-325 Mg Tablet PO 1 tab Q6H L[facility] Administration Apixaban 10 mg 08/27/24 21:00 08/28/24 09:17 Apixaban 5 Mg Tablet PO 09/03/24 20:59 10 mg Q12HR LIDA Administration Apixaban 5 mg 09/03/24 21:00 Apixaban 5 Mg Tablet PO Q12HR L[facility] Baclofen 10 mg 08/25/24 09:00 08/28/24 09:18 Baclofen 10 Mg Tablet PO 10 mg BID LIDA Administration Bupropion HCl 100 mg 08/25/24 09:00 08/28/24 09:18 Bupropion Hcl 100 Mg Tablet PO 100 mg TID L[facility] Administration Buspirone HCl 5 mg 08/25/24 09:00 08/28/24 09:18 Buspirone Hcl 5 Mg Tablet PO 5 mg TID LIDA Administration Calcium Carbonate 500 mg 08/25/24 12:00 08/28/24 09:16 Calcium Carbonate (Tums) 500 Mg (200 Mg Elemental) PO 500 mg TIDWM LIDA Administration Chlordiazepoxide HCl 25 mg 08/25/24 06:00 08/28/24 05:31 Chlordiazepoxide (*Crx) 25 Mg Capsule PO 25 mg Q6HR [facility] Administration Diclofenac Sodium 1 applic 08/25/24 08:55 Diclofenac Sodium 1% 100 Gm Gel (*Bkc) TOPICAL BID PRN Pain Ferrous Sulfate 325 mg 08/25/24 10:00 08/28/24 09:18 Ferrous Sulfate [address] BY MOUTH 325 mg DAILY [facility] Administration Folic Acid 1 mg 08/25/24 09:00 08/28/24 09:18 Folic Acid 1 Mg Tablet PO 1 mg DAILY [facility] Administration Furosemide 40 mg 08/25/24 09:00 08/28/24 09:18 Furosemide 40 Mg Tablet PO 40 mg BID [facility] Administration Gabapentin 400 mg 08/25/24 09:00 08/28/24 09:18 Gabapentin 400 Mg Capsule PO 400 mg TID [facility] Administration Guaifenesin/Dextromethorphan 5 ml 08/27/24 00:05 08/27/24 00:25 Guaifenesin/Dextromethorphan 10 Ml Udc PO 5 ml Q4H PRN Administration Cough Haloperidol 5 mg 08/25/24 09:00 08/28/24 09:19 Haloperidol 5 Mg Tablet PO 5 mg BID [facility] Administration Hydroxyzine HCl 25 mg 08/25/24 09:00 08/28/24 09:19 Hydroxyzine Hcl 25 Mg Tablet PO 25 mg TID [facility] Administration Lactobacillus Acidophilus 1 tablet 08/25/24 17:00 08/28/24 09:17 Acidophilus/Bulgaricus Chewable Tablet BY MOUTH 1 tablet BID [facility] Administration Lactulose 20 gm 08/25/24 13:00 08/28/24 09:19 Lactulose 20 Gm/30 Ml Udc PO Not Given TID [facility] Lidocaine 1 patch 08/25/24 09:15 08/28/24 09:20 Lidocaine 5% Patch TRANSDERM Not Given DAILY [facility] Lorazepam 2 mg 08/25/24 05:53 Lorazepam Inj (*Crx) 2 Mg/Ml Vial IV PUSH Q2H PRN CIWA > 15 Lorazepam 2 mg 08/25/24 05:53 Lorazepam Inj (*Crx) 2 Mg/Ml Vial IV PUSH Q4H PRN CIWA 8-15 Lorazepam 1 mg 08/25/24 09:00 08/28/24 09:19 Lorazepam (*Crx) 1 Mg Tablet PO 1 mg Q6H [facility] Administration Magnesium Oxide 400 mg 08/25/24 21:00 08/27/24 20:54 Magnesium Oxide 400 Mg Tablet PO 400 mg HS [facility] Administration Melatonin 3 mg 08/25/24 21:00 08/27/24 20:53 Melatonin 3 Mg Tablet PO 3 mg HS [facility] Administration Ondansetron HCl 4 mg 08/25/24 08:55 08/27/24 03:52 Ondansetron Hcl Odt 4 Mg Tablet PO 4 mg Q8H PRN Administration nausea/vomiting Potassium Chloride 20 meq 08/25/24 09:00 08/28/24 09:19 Potassium Chloride 20 Meq Er Tablet PO 20 meq DAILY [facility] Administration Prazosin HCl 1 mg 08/25/24 09:00 08/27/24 21:59 Prazosin Hcl 1 Mg Capsule PO 1 mg QID [facility] Administration Propranolol HCl 10 mg 08/25/24 09:00 08/28/24 09:22 Propranolol Hcl 10 Mg Tablet PO 10 mg BID [facility] Administration Rifaximin 550 mg 08/25/24 09:00 08/28/24 09:19 Rifaximin 550 Mg Tablet PO 550 mg BID [facility] Administration Simethicone 80 mg 08/25/24 08:55 Simethicone 80 Mg Tab.Chew PO BID PRN Abdominal Discomfort Spironolactone 100 mg 08/25/24 09:00 08/28/24 09:19 Spironolactone 50 Mg Tablet PO 100 mg DAILY [facility] Administration Sucralfate 1,000 mg 08/25/24 09:00 08/28/24 09:20 Sucralfate Susp 100 Mg/Ml 10 Ml Udc PO 1,000 mg TID [facility] Administration Thiamine HCl 100 mg 08/25/24 09:00 08/28/24 09:21 Thiamine Hcl 100 Mg Tablet PO 100 mg DAILY [facility] Administration Trazodone HCl 50 mg 08/25/24 21:00 08/27/24 20:54 Trazodone Hcl 50 Mg Tablet PO 50 mg QHS [facility] Administration Vitamin D 5,000 units 08/25/24 10:00 08/28/24 09:23 Cholecalciferol 5,000 Units Tablet BY MOUTH 5,000 units DAILY [facility] Administration Radiology Results: ITS Impressions Venous Doppler Study 08/24/24 23:10 IMPRESSION: Positive right lower extremity venous US. DVT in the right lower extremity. Chest CTA 08/25/24 05:52 Impression: Pulmonary embolus in the right main pulmonary artery extending to the right lower lobar pulmonary artery and lower lobe segmental branches. No definite evidence of right heart strain. Stable cystic area in the right lung apex with adjacent scarring. Cirrhotic change of the liver. Labs Labs: Laboratory Results - last 24 hr 08/27/24 08/27/24 08/27/24 11:55 18:04 20:33 WBC RBC Hgb Hct MCV MCH MCHC RDW Plt Count MPV Immature Gran % (Auto) Neut % (Auto) Lymph % (Auto) [place] % (Auto) Eos % (Auto) Baso % (Auto) Lymph # (Auto) [place] # (Auto) Eos # (Auto) Baso # (Auto) Abs Immat Gran (auto) Absolute Neuts (auto) Absolute Nucleated RBC Nucleated RBC % Sodium Potassium Chloride Carbon Dioxide Anion Gap BUN Creatinine Estim Creat Clear Calc Estimated GFR Glucose POC Capillary Glucose 134 H 133 H 147 H Calcium Magnesium Total Bilirubin AST ALT Alkaline Phosphatase Total Protein Albumin 08/28/24 08/28/24 08/28/24 00:02 05:28 06:19 WBC 6.2 RBC 4.19 L Hgb 13.8 L Hct 41.1 L MCV 98.1 MCH 32.9 MCHC 33.6 RDW 12.6 Plt Count 143 L MPV 9.8 Immature Gran % (Auto) 3.4 H Neut % (Auto) 59.8 Lymph % (Auto) 19.3 [place] % (Auto) 13.8 H Eos % (Auto) 2.3 Baso % (Auto) 1.4 H Lymph # (Auto) 1.20 [place] # (Auto) 0.9 H Eos # (Auto) 0.1 Baso # (Auto) 0.1 Abs Immat Gran (auto) 0.21 H Absolute Neuts (auto) 3.7 Absolute Nucleated RBC 0.030 H Nucleated RBC % 0.5 H Sodium 133 L Potassium 3.6 Chloride 96 L Carbon Dioxide 33 H Anion Gap 4 BUN 7 L Creatinine 0.80 Estim Creat Clear Calc 119 Estimated GFR > 60 Glucose 129 H POC Capillary Glucose 168 H 116 H Calcium 9.0 Magnesium 2.1 Total Bilirubin 0.4 AST 23 ALT 24 Alkaline Phosphatase 74 Total Protein 7.0 Albumin 3.8
[2024-08-28 12:00] LABS: Glucose Point of Care 122 mg/dl (65-105)
[2024-08-28] MEDS: PRAZOSIN HCL 1 MG CAPSULE PO ×3 (12:22→21:44)
[2024-08-28 16:32] LABS: Glucose Point of Care 125 mg/dl (65-105)
[2024-08-28] MEDS: LACTULOSE 20 GM/30 ML UDC PO (17:21)
[2024-08-28] MEDS: MAGNESIUM OXIDE 400 MG TABLET PO (21:43)
[2024-08-28] MEDS: traZODone HCL 50 MG TABLET PO (21:43)
[2024-08-28] MEDS: MELATONIN 3 MG TABLET PO (21:43)
[2024-08-29] VITALS (13 sets, daily range): BP systolic 112–121; BP diastolic 66–85; PULSE 73–86; RESP 14–16; TEMP 36.1–36.6; O2SAT 94–95
[2024-08-29 03:04] LABS: Glucose Point of Care 118 mg/dl (65-105)
[2024-08-29] MEDS: HYDROcodone/acetaminophen (*CRX) 10-325 MG TABLET 1 TAB PO ×4 (03:29→22:04)
[2024-08-29] MEDS: LORazepam (*CRX) 1 MG TABLET PO ×4 (03:29→22:04)
[2024-08-29 06:13] LABS: Glucose Point of Care 128 mg/dl (65-105)
[2024-08-29] MEDS: guaiFENesin/DEXTROMETHORPHAN 10 ML UDC 5 ML PO (08:52)
[2024-08-29] MEDS: CALCIUM CARBONATE (TUMS) 500 MG (200 MG ELEMENTAL) PO ×3 (08:53→17:39)
[2024-08-29] MEDS: THIAMINE HCL 100 MG TABLET PO (08:54)
[2024-08-29] MEDS: busPIRone HCL 5 MG TABLET PO ×3 (08:54→17:39)
[2024-08-29] MEDS: CHOLECALCIFEROL 5,000 UNITS TABLET 5000 UNITS BY MOUTH (08:54)
[2024-08-29] MEDS: BACLOFEN 10 MG TABLET PO ×2 (08:54→17:39)
[2024-08-29] MEDS: ACIDOPHILUS/BULGARICUS CHEWABLE TABLET 1 TABLET BY MOUTH ×2 (08:54→17:38)
[2024-08-29] MEDS: APIXABAN 5 MG TABLET 10 MG PO ×2 (08:54→22:04)
[2024-08-29] MEDS: rifAXIMin 550 MG TABLET PO ×2 (08:55→17:38)
[2024-08-29] MEDS: FERROUS SULFATE 325 MG TABLET DR BY MOUTH (08:55)
[2024-08-29] MEDS: hydrOXYzine HCL 25 MG TABLET PO ×3 (08:55→17:40)
[2024-08-29] MEDS: PROPRANOLOL HCL 10 MG TABLET PO ×2 (08:55→17:39)
[2024-08-29] MEDS: PRAZOSIN HCL 1 MG CAPSULE PO ×4 (08:55→22:03)
[2024-08-29] MEDS: HALOPERIDOL 5 MG TABLET PO ×2 (08:55→17:39)
[2024-08-29] MEDS: FOLIC ACID 1 MG TABLET PO (08:55)
[2024-08-29] MEDS: POTASSIUM CHLORIDE 20 MEQ ER TABLET PO (08:55)
[2024-08-29] MEDS: FUROSEMIDE 40 MG TABLET PO ×2 (08:55→17:39)
[2024-08-29] MEDS: GABAPENTIN 400 MG CAPSULE PO ×3 (08:55→17:39)
[2024-08-29] MEDS: LACTULOSE 20 GM/30 ML UDC PO ×3 (08:56→17:38)
[2024-08-29] MEDS: buPROPion HCL 100 MG TABLET PO ×3 (08:56→17:38)
[2024-08-29] MEDS: SPIRONOLACTONE 50 MG TABLET 100 MG PO (08:56)
[2024-08-29] MEDS: chlordiazePOXIDE (*CRX) 25 MG CAPSULE PO (08:56)
[2024-08-29] MEDS: SUCRALFATE SUSP 100 MG/ML 10 ML UDC 1000 MG PO ×3 (09:00→17:38)
--- NOTE | 2024-08-29 12:02 | PM.IMPN ---
Progress Note: A&P Assessment and Plan (1) Alcohol use disorder: Code(s): F10.90 - Alcohol use, unspecified, uncomplicated Status: Acute (2) Deep vein thrombosis (DVT) of right lower extremity: Qualifiers: Affected thrombotic vein of extremity: unspecified vein of extremity Chronicity: acute Qualified Code(s): I82.401 - Acute embolism and thrombosis of unspecified deep veins of right lower extremity Code(s): I82.401 - Acute embolism and thrombosis of unspecified deep veins of right lower extremity Status: Acute (3) Pulmonary embolism: Code(s): I26.99 - Other pulmonary embolism without acute cor pulmonale Status: Acute (4) Cirrhosis: Qualifiers: Ascites presence: without ascites Hepatic cirrhosis type: alcoholic cirrhosis Qualified Code(s): K70.30 - Alcoholic cirrhosis of liver without ascites Code(s): K74.60 - Unspecified cirrhosis of liver Status: Acute Plan Patient is a 38-year-old male who presents to the ED via EMS with report of right thigh pain and concern for alcohol withdrawal. Patient is currently residing at [facility]. He has history of previous left hip fracture which he did not undergo surgical repair of. He is currently wheelchair bound. Patient reports having pain throughout his right medial upper thigh for the past 7 days. Denies any fall or injury. Denies numbness or appreciable swelling. Denies previous history of blood clots. Denies chest pain. Does admit to having some increased shortness of breath with exertion over the last 1 week. Patient also reports he is concerned he is going to begin going through alcohol withdrawal soon. He has a long history of alcohol abuse, history of liver cirrhosis. States over the past 12 days he has been drinking at least half a L of vodka per day. He last drink at 730am on 08/24. States his cousin brings him in alcohol into the [facility]. States he wants to quit drinking and avoid withdrawal symptoms. Has had withdrawal sx's and self reported DTs in the past with quitting drinking. He states he has had seizures before with quitting. Denies current nausea, abdominal pain. Upon arrival to the ED vitals were stable. Venous ultrasound came back positive for thrombosis noted common femoral proximal superficial femoral distal superficial femoral and deep femoral vein. CTA chest was done which showed PE and right main pulmonary artery extending to the right lower lobe over pulmonary artery and lower lobe segmental branches with no definitive evidence of right heart strain. Stable cystic area in the right lung apex with adjacent scarring. Cirrhotic changes of the liver. started on Lovenox which will be continued therapeutic dose. Will switch to Eliquis for his newly diagnosis DVT/PE. Echo with EF 60-65% with no valvular abnormality noted. 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 On Librium. Ativan p.r.n. per CIWA protocol. Monitor CIWA score. Will stop Librium today as he is drowsy Chronic left hip fracture with nonunion DVT prophylaxis already on Lovenox which will be switched to Eliquis Subjective Date/time seen: 08/29/24 12:02 Interval history: No overnight events. CIWA score still elevated. No nausea vomiting. Patient drowsy Review of Systems Review of Systems: All systems reviewed & are unremarkable except as noted in HPI and below Exam Narrative: GENERAL: Appears older than stated age, in no acute distress. Drowsy HEAD: Normocephalic, atraumatic. RESPIRATORY: Airway patent, respirations nonlabored. Clear to auscultation bilaterally, no rales, rhonchi, wheezing. CARDIOVASCULAR: Regular rate and rhythm without murmurs, rubs, or gallops. Peripheral pulses intact. ABDOMINAL: Abdomen is mildly distended appearing but still soft, no significant focal tenderness. Normoactive BS. MUSCULOSKELETAL: Moves all extremities. No gross deformities. Mild tenderness palpation R proximal inner thigh with chronic stria present. No significant overlying erythema, warmth, swelling. No lower extremity peripheral edema. Sensation intact throughout right lower extremity. SKIN: Warm, dry, normal color. NEURO: A&O X3. Bit drowsy. Speech clear. Cranial nerves II-XII grossly intact. No ataxic movements. PSYCHIATRIC: Appropriate mood and affect. Normal interaction. Objective Data Vital Signs Vital Signs: Vital Signs - 24 hr 08/28/24 14:00 08/28/24 16:00 08/28/24 17:20 Temperature 96.9 F L Pulse Rate 69 77 82 Pulse Rate [Right Brachial Monitor] Respiratory Rate 18 Blood Pressure 109/61 Pulse Oximetry 98 Oxygen Delivery 08/28/24 17:26 08/28/24 22:00 08/28/24 20:00 Temperature 97.6 F Pulse Rate 78 79 Pulse Rate [Right Brachial Monitor] 83 Respiratory Rate 16 Blood Pressure 114/78 Pulse Oximetry 94 Oxygen Delivery 08/28/24 21:44 08/28/24 20:00 08/29/24 01:10 Temperature 97.5 F L Pulse Rate 79 Pulse Rate [Right Brachial Monitor] 78 Respiratory Rate 16 Blood Pressure 114/78 112/66 Pulse Oximetry 94 94 Oxygen Delivery Room Air 08/29/24 00:04 08/29/24 00:00 08/29/24 04:00 Temperature Pulse Rate 82 82 Pulse Rate [Right Brachial Monitor] 78 Respiratory Rate Blood Pressure 112/66 Pulse Oximetry Oxygen Delivery 08/29/24 04:00 08/29/24 06:00 08/29/24 08:55 Temperature 97.8 F Pulse Rate 86 79 Pulse Rate [Right Brachial Monitor] 86 Respiratory Rate 16 Blood Pressure 118/85 118/85 Pulse Oximetry 95 Oxygen Delivery 08/29/24 09:09 08/29/24 08:00 08/29/24 08:00 Temperature Pulse Rate Pulse Rate [Right Brachial Monitor] 83 Respiratory Rate Blood Pressure Pulse Oximetry 95 Oxygen Delivery Room Air Room Air 08/29/24 08:00 Temperature Pulse Rate 78 Pulse Rate [Right Brachial Monitor] Respiratory Rate Blood Pressure Pulse Oximetry Oxygen Delivery Intake/Output Intake/Output: Intake & Output 08/27/24 08/27/24 08/28/24 08/29/24 00:59 23:59 23:59 23:59 Intake Total 700 600 Output Total 2 1400 Balance 698 -800 Meds/Results Medications: Active Medications Generic Name Dose Route Start Last Admin Trade Name Freq PRN Reason Stop Dose Admin Acetaminophen 1,000 mg 08/25/24 08:55 Acetaminophen 500 Mg Tablet PO Q6H PRN Pain Hydrocodone Bitart/Acetaminophen 1 tab 08/25/24 09:00 08/29/24 08:56 Hydrocodone/Acetaminophen (*Crx) 10-325 Mg Tablet PO 1 tab Q6H [facility] Administration Apixaban 10 mg 08/27/24 21:00 08/29/24 08:54 Apixaban 5 Mg Tablet PO 09/03/24 20:59 10 mg Q12HR [facility] Administration Apixaban 5 mg 09/03/24 21:00 Apixaban 5 Mg Tablet PO Q12HR [facility] Baclofen 10 mg 08/25/24 09:00 08/29/24 08:54 Baclofen 10 Mg Tablet PO 10 mg BID [facility] Administration Bupropion HCl 100 mg 08/25/24 09:00 08/29/24 08:56 Bupropion Hcl 100 Mg Tablet PO 100 mg TID [facility] Administration Buspirone HCl 5 mg 08/25/24 09:00 08/29/24 08:54 Buspirone Hcl 5 Mg Tablet PO 5 mg TID [facility] Administration Calcium Carbonate 500 mg 08/25/24 12:00 08/29/24 08:53 Calcium Carbonate (Tums) 500 Mg (200 Mg Elemental) PO 500 mg TIDWM [facility] Administration Chlordiazepoxide HCl 25 mg 08/28/24 12:00 08/29/24 08:56 Chlordiazepoxide (*Crx) 25 Mg Capsule PO 25 mg Q12HR [facility] Administration Diclofenac Sodium 1 applic 08/25/24 08:55 Diclofenac Sodium 1% 100 Gm Gel (*Bkc) TOPICAL BID PRN Pain Ferrous Sulfate 325 mg 08/25/24 10:00 08/29/24 08:55 Ferrous Sulfate [address] BY MOUTH 325 mg DAILY [facility] Administration Folic Acid 1 mg 08/25/24 09:00 08/29/24 08:55 Folic Acid 1 Mg Tablet PO 1 mg DAILY [facility] Administration Furosemide 40 mg 08/25/24 09:00 08/29/24 08:55 Furosemide 40 Mg Tablet PO 40 mg BID [facility] Administration Gabapentin 400 mg 08/25/24 09:00 08/29/24 08:55 Gabapentin 400 Mg Capsule PO 400 mg TID [facility] Administration Guaifenesin/Dextromethorphan 5 ml 08/27/24 00:05 08/29/24 08:52 Guaifenesin/Dextromethorphan 10 Ml Udc PO 5 ml Q4H PRN Administration Cough Haloperidol 5 mg 08/25/24 09:00 08/29/24 08:55 Haloperidol 5 Mg Tablet PO 5 mg BID [facility] Administration Hydroxyzine HCl 25 mg 08/25/24 09:00 08/29/24 08:55 Hydroxyzine Hcl 25 Mg Tablet PO 25 mg TID [facility] Administration Lactobacillus Acidophilus 1 tablet 08/25/24 17:00 08/29/24 08:54 Acidophilus/Bulgaricus Chewable Tablet BY MOUTH 1 tablet BID [facility] Administration Lactulose 20 gm 08/25/24 13:00 08/29/24 08:56 Lactulose 20 Gm/30 Ml Udc PO 20 gm TID [facility] Administration Lidocaine 1 patch 08/25/24 09:15 08/29/24 08:55 Lidocaine 5% Patch TRANSDERM Not Given DAILY [facility] Lorazepam 2 mg 08/25/24 05:53 Lorazepam Inj (*Crx) 2 Mg/Ml Vial IV PUSH Q2H PRN CIWA > 15 Lorazepam 2 mg 08/25/24 05:53 Lorazepam Inj (*Crx) 2 Mg/Ml Vial IV PUSH Q4H PRN CIWA 8-15 Lorazepam 1 mg 08/25/24 09:00 08/29/24 08:56 Lorazepam (*Crx) 1 Mg Tablet PO 1 mg Q6H [facility] Administration Magnesium Oxide 400 mg 08/25/24 21:00 08/28/24 21:43 Magnesium Oxide 400 Mg Tablet PO 400 mg HS [facility] Administration Melatonin 3 mg 08/25/24 21:00 08/28/24 21:43 Melatonin 3 Mg Tablet PO 3 mg HS [facility] Administration Ondansetron HCl 4 mg 08/25/24 08:55 08/27/24 03:52 Ondansetron Hcl Odt 4 Mg Tablet PO 4 mg Q8H PRN Administration nausea/vomiting Potassium Chloride 20 meq 08/25/24 09:00 08/29/24 08:55 Potassium Chloride 20 Meq Er Tablet PO 20 meq DAILY [facility] Administration Prazosin HCl 1 mg 08/25/24 09:00 08/29/24 08:55 Prazosin Hcl 1 Mg Capsule PO 1 mg QID [facility] Administration Propranolol HCl 10 mg 08/25/24 09:00 08/29/24 08:55 Propranolol Hcl 10 Mg Tablet PO 10 mg BID [facility] Administration Rifaximin 550 mg 08/25/24 09:00 08/29/24 08:55 Rifaximin 550 Mg Tablet PO 550 mg BID [facility] Administration Simethicone 80 mg 08/25/24 08:55 Simethicone 80 Mg Tab.Chew PO BID PRN Abdominal Discomfort Spironolactone 100 mg 08/25/24 09:00 08/29/24 08:56 Spironolactone 50 Mg Tablet PO 100 mg DAILY [facility] Administration Sucralfate 1,000 mg 08/25/24 09:00 08/29/24 09:00 Sucralfate Susp 100 Mg/Ml 10 Ml Udc PO 1,000 mg TID [facility] Administration Thiamine HCl 100 mg 08/25/24 09:00 08/29/24 08:54 Thiamine Hcl 100 Mg Tablet PO 100 mg DAILY [facility] Administration Trazodone HCl 50 mg 08/25/24 21:00 08/28/24 21:43 Trazodone Hcl 50 Mg Tablet PO 50 mg QHS [facility] Administration Vitamin D 5,000 units 08/25/24 10:00 08/29/24 08:54 Cholecalciferol 5,000 Units Tablet BY MOUTH 5,000 units DAILY [facility] Administration Radiology Results: ITS Impressions Venous Doppler Study 08/24/24 23:10 IMPRESSION: Positive right lower extremity venous US. DVT in the right lower extremity. Chest CTA 08/25/24 05:52 Impression: Pulmonary embolus in the right main pulmonary artery extending to the right lower lobar pulmonary artery and lower lobe segmental branches. No definite evidence of right heart strain. Stable cystic area in the right lung apex with adjacent scarring. Cirrhotic change of the liver. Labs Labs: Laboratory Results - last 24 hr 08/28/24 08/29/24 08/29/24 16:27 00:57 05:51 POC Capillary Glucose 125 H 118 H 128 H
[2024-08-29 12:26] LABS: Glucose Point of Care 171 mg/dl (65-105)
[2024-08-29 18:14] LABS: Glucose Point of Care 170 mg/dl (65-105)
[2024-08-29] MEDS: MELATONIN 3 MG TABLET PO (22:03)
[2024-08-29] MEDS: traZODone HCL 50 MG TABLET PO (22:04)
[2024-08-29] MEDS: MAGNESIUM OXIDE 400 MG TABLET PO (22:04)
[2024-08-29] MEDS: LORazepam INJ (*CRX) 2 MG/ML VIAL IV PUSH (22:07)
[2024-08-30] VITALS (10 sets, daily range): BP systolic 113–119; BP diastolic 72–75; PULSE 72–84; RESP 16–18; TEMP 36.3–37.3; O2SAT 93–95
[2024-08-30 00:24] LABS: Glucose Point of Care 111 mg/dl (65-105)
[2024-08-30] MEDS: HYDROcodone/acetaminophen (*CRX) 10-325 MG TABLET 1 TAB PO ×4 (04:51→21:10)
[2024-08-30] MEDS: LORazepam (*CRX) 1 MG TABLET PO ×4 (04:51→21:09)
[2024-08-30 05:12] LABS: Basophils Absolute Auto 0.1 K/mm3 (0.0-0.1); Basophils Percent Auto 0.7 % (0.2-1.2); Eosinophils Absolute Auto 0.2 K/mm3 (0-0.3); Eosinophils Percent Auto 2.1 % (0-4.4); Hematocrit 40.1 % (42.0-52.0); Hemoglobin 13.8 g/dL (14.0-18.0); Immature Granulocyte Absolute 0.13 K/mm3 (0.00-0.031); Immature Granulocyte Percent A 1.8 % (0-0.5); Lymphocytes Absolute Auto 1.23 K/mm3 (0.9-3.2); Lymphocytes Percent Auto 17.4 % (18.3-44.2); Mean Corpuscular HGB Conc 34.4 g/dl (32-36); Mean Corpuscular Hemoglobin 33.7 pg (26-34); Mean Platelet Volume 9.8 fl (7.4-10.4); Monocytes Absolute Auto 1.1 K/mm3 (0.1-0.6); Monocytes Percent Auto 15.1 % (2.6-8.5); Neutrophils Absolute Auto 4.4 K/mm3 (1.3-6.7); Neutrophils Percent Auto 62.9 % (45.5-73.1); Nucleated Red Blood Cells Perc 0.3 % (0.0-0.2); Platelet Count Result 161 k/mm3 (150-375); Red Blood Count 4.09 M/mm3 (4.6-6.20); White Blood Count 7.1 K/mm3 (4.5-10.0)
[2024-08-30 05:14] LABS: Alanine Aminotransferase 29 U/L (6-50); Albumin Level 3.8 g/dL (3.5-5.1); Alkaline Phosphatase 75 U/L (38-126); Anion Gap 5 mmol/L (4-12); Aspartate Amino Transferase 30 U/L (17-59); Bilirubin,Total 0.3 mg/dL (0.2-1.3); Blood Urea Nitrogen 9 mg/dL (9-20); Calcium 9.2 mg/dL (8.4-10.2); Carbon Dioxide 30 mmol/L (22-30); Chloride 97 mmol/L (98-107); Estimated CRCL calculation 155 ml/min; Estimated Glomerular Filt Rate > 60; Glucose 119 mg/dL (65-110); Magnesium 1.9 mg/dL (1.6-2.3); Potassium 3.8 mmol/L (3.4-5.0); Sodium 132 mmol/L (137-145)
[2024-08-30 05:37] LABS: Glucose Point of Care 130 mg/dl (65-105)
[2024-08-30] MEDS: APIXABAN 5 MG TABLET 10 MG PO ×2 (09:10→21:09)
[2024-08-30] MEDS: PROPRANOLOL HCL 10 MG TABLET PO ×2 (09:10→18:34)
[2024-08-30] MEDS: rifAXIMin 550 MG TABLET PO ×2 (09:10→18:33)
[2024-08-30] MEDS: CHOLECALCIFEROL 5,000 UNITS TABLET 5000 UNITS BY MOUTH (09:10)
[2024-08-30] MEDS: HALOPERIDOL 5 MG TABLET PO ×2 (09:11→18:34)
[2024-08-30] MEDS: GABAPENTIN 400 MG CAPSULE PO ×3 (09:11→18:34)
[2024-08-30] MEDS: SPIRONOLACTONE 50 MG TABLET 100 MG PO (09:11)
[2024-08-30] MEDS: PRAZOSIN HCL 1 MG CAPSULE PO ×4 (09:11→21:09)
[2024-08-30] MEDS: busPIRone HCL 5 MG TABLET PO ×3 (09:11→18:34)
[2024-08-30] MEDS: ACIDOPHILUS/BULGARICUS CHEWABLE TABLET 1 TABLET BY MOUTH ×2 (09:11→18:34)
[2024-08-30] MEDS: FUROSEMIDE 40 MG TABLET PO ×2 (09:11→18:34)
[2024-08-30] MEDS: hydrOXYzine HCL 25 MG TABLET PO ×3 (09:11→18:33)
[2024-08-30] MEDS: POTASSIUM CHLORIDE 20 MEQ ER TABLET PO (09:11)
[2024-08-30] MEDS: BACLOFEN 10 MG TABLET PO ×2 (09:12→18:33)
[2024-08-30] MEDS: buPROPion HCL 100 MG TABLET PO ×3 (09:12→18:33)
[2024-08-30] MEDS: CALCIUM CARBONATE (TUMS) 500 MG (200 MG ELEMENTAL) PO ×3 (09:12→18:32)
[2024-08-30] MEDS: FERROUS SULFATE 325 MG TABLET DR BY MOUTH (09:12)
[2024-08-30] MEDS: FOLIC ACID 1 MG TABLET PO (09:12)
[2024-08-30] MEDS: THIAMINE HCL 100 MG TABLET PO (09:12)
[2024-08-30] MEDS: SUCRALFATE SUSP 100 MG/ML 10 ML UDC 1000 MG PO ×3 (09:19→18:32)
[2024-08-30 12:04] LABS: Glucose Point of Care 106 mg/dl (65-105)
[2024-08-30] MEDS: LACTULOSE 20 GM/30 ML UDC PO ×2 (12:46→18:32)
--- NOTE | 2024-08-30 15:25 | PM.IMPN ---
Progress Note: A&P Assessment and Plan (1) Alcohol use disorder: Code(s): F10.90 - Alcohol use, unspecified, uncomplicated Status: Acute Assessment and Plan: Patient currently residing at [facility] and is wheelchair bound. States over the past 12 days he has been drinking at least half a L of vodka per day. He last drink at 730am on 08/24. States his cousin brings him in alcohol into the senior care. States he wants to quit drinking and avoid withdrawal symptoms. Has had withdrawal sx's and self reported DTs in the past with quitting drinking. He states he has had seizures before with quitting. CIWA protocol started and ranging from 2-11 past 24hrs. On thiamine which we will continue. Also on scheduled ativan and narcotics. Suspect over-treating. Back off on prn medications. (2) Pulmonary embolism: Code(s): I26.99 - Other pulmonary embolism without acute cor pulmonale Status: Acute Assessment and Plan: He has history of previous left hip fracture which he did not undergo surgical repair of. He is currently wheelchair bound. Patient reports having pain throughout his right medial upper thigh for the past 7 days. Denies any fall or injury. Venous ultrasound positive for extensive thrombosis of RLE. CTA chest showed PE and right main pulmonary artery extending to the right lower lobe over pulmonary artery and lower lobe segmental branches with no definitive evidence of right heart strain. Stable cystic area in the right lung apex with adjacent scarring. Echo with EF 60-65% with no valvular abnormality noted. He was started on Lovenox and was transtioned to [facility] for his newly diagnosis DVT/PE. Continue to monitor (3) Deep vein thrombosis (DVT) of right lower extremity: Qualifiers: Affected thrombotic vein of extremity: unspecified vein of extremity Chronicity: acute Qualified Code(s): I82.401 - Acute embolism and thrombosis of unspecified deep veins of right lower extremity Code(s): I82.401 - Acute embolism and thrombosis of unspecified deep veins of right lower extremity Status: Acute Assessment and Plan: As above (4) Cirrhosis: Qualifiers: Ascites presence: without ascites Hepatic cirrhosis type: alcoholic cirrhosis Qualified Code(s): K70.30 - Alcoholic cirrhosis of liver without ascites Code(s): K74.60 - Unspecified cirrhosis of liver Status: Acute Assessment and Plan: CT scan showing cirrhosis of liver. 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 Continue Lactulose, Aldactone and Rifaximin. He has been refusing lactulose at times Alcohol cessation is extremely important Check ammonia level. Plan Chronic left hip fracture with nonunion - WC bound Depression/Anxiety - on Haldol, scheduled Ativan, Wellbutrin and Buspar. Monitor for now. Urine hesitancy - check bladder scan. DVT prophylaxis - Eliquis Code status - full Subjective Date/time seen: 08/30/24 15:26 Interval history: 38yo male with hx of alcoholism, depression and cirrhosis here for possible alcohol w/d. He is wheelchair bound and lives at a senior care. Assuming care. Chart reviewed. Patient did received Ativan 2mg IV once last night. He is 'not good'. No energy. Slept okay. Having visual hallucinations seeing people who are . no fevers. Eating okay. No nausea or vomiting. Has been having trouble voiding but denies any dysuria or hematuria. Exam Narrative: AF 97.4 113/72 74 16 93% ra Gen - NARD Chest - bibasilar crackles. CV - RRR S1/S2. Tele showing no signifincat dysrhythmias Abd - Soft, obese, NT Ext - No pedal edema Neuro - somnolent. Psych - Nml mood and affect Skin - Warm and dry. purple striae of the abdomen Objective Data Vital Signs Vital Signs: Vital Signs - 24 hr 08/29/24 16:00 08/29/24 17:39 08/29/24 22:00 Temperature 97.0 F L Pulse Rate 75 73 78 Respiratory Rate 16 Blood Pressure 121/74 Pulse Oximetry 94 Oxygen Delivery 08/29/24 21:50 08/29/24 20:00 08/30/24 00:00 Temperature Pulse Rate 79 84 Respiratory Rate Blood Pressure Pulse Oximetry Oxygen Delivery Room Air 08/30/24 04:00 08/30/24 06:00 08/30/24 09:10 Temperature 97.4 F L Pulse Rate 76 78 77 Respiratory Rate 16 Blood Pressure 113/72 Pulse Oximetry 93 Oxygen Delivery 08/30/24 09:20 08/30/24 12:00 08/30/24 08:00 Temperature Pulse Rate 74 75 Respiratory Rate Blood Pressure Pulse Oximetry Oxygen Delivery Room Air Intake/Output Intake/Output: Intake & Output 08/27/24 08/28/24 08/29/24 08/30/24 23:59 23:59 23:59 23:59 Intake Total 700 1320 1120 Output Total 2 1800 1200 Balance 698 -480 -80 Meds/Results Medications: Active Medications Generic Name Dose Route Start Last Admin Trade Name Freq PRN Reason Stop Dose Admin Acetaminophen 1,000 mg 08/25/24 08:55 Acetaminophen 500 Mg Tablet PO Q6H PRN Pain Hydrocodone Bitart/Acetaminophen 1 tab 08/25/24 09:00 08/30/24 09:12 Hydrocodone/Acetaminophen (*Crx) 10-325 Mg Tablet PO 1 tab Q6H LIDA Administration Apixaban 10 mg 08/27/24 21:00 08/30/24 09:10 Apixaban 5 Mg Tablet PO 09/03/24 20:59 10 mg Q12HR LIDA Administration Apixaban 5 mg 09/03/24 21:00 Apixaban 5 Mg Tablet PO Q12HR LIDA Baclofen 10 mg 08/25/24 09:00 08/30/24 09:12 Baclofen 10 Mg Tablet PO 10 mg BID LIDA Administration Bupropion HCl 100 mg 08/25/24 09:00 08/30/24 12:46 Bupropion Hcl 100 Mg Tablet PO 100 mg TID LIDA Administration Buspirone HCl 5 mg 08/25/24 09:00 08/30/24 12:46 Buspirone Hcl 5 Mg Tablet PO 5 mg TID LIDA Administration Calcium Carbonate 500 mg 08/25/24 12:00 08/30/24 12:45 Calcium Carbonate (Tums) 500 Mg (200 Mg Elemental) PO 500 mg TIDWM LIDA Administration Diclofenac Sodium 1 applic 08/25/24 08:55 Diclofenac Sodium 1% 100 Gm Gel (*Bkc) TOPICAL BID PRN Pain Ferrous Sulfate 325 mg 08/25/24 10:00 08/30/24 09:12 Ferrous Sulfate [address] BY MOUTH 325 mg DAILY LIDA Administration Folic Acid 1 mg 08/25/24 09:00 08/30/24 09:12 Folic Acid 1 Mg Tablet PO 1 mg DAILY LIDA Administration Furosemide 40 mg 08/25/24 09:00 08/30/24 09:11 Furosemide 40 Mg Tablet PO 40 mg BID LIDA Administration Gabapentin 400 mg 08/25/24 09:00 08/30/24 12:46 Gabapentin 400 Mg Capsule PO 400 mg TID LIDA Administration Guaifenesin/Dextromethorphan 5 ml 08/27/24 00:05 08/29/24 08:52 Guaifenesin/Dextromethorphan 10 Ml Udc PO 5 ml Q4H PRN Administration Cough Haloperidol 5 mg 08/25/24 09:00 08/30/24 09:11 Haloperidol 5 Mg Tablet PO 5 mg BID LIDA Administration Hydroxyzine HCl 25 mg 08/25/24 09:00 08/30/24 12:46 Hydroxyzine Hcl 25 Mg Tablet PO 25 mg TID LIDA Administration Lactobacillus Acidophilus 1 tablet 08/25/24 17:00 08/30/24 09:11 Acidophilus/Bulgar[place] Chewable Tablet BY MOUTH 1 tablet BID LIDA Administration Lactulose 20 gm 08/25/24 13:00 08/30/24 12:46 Lactulose 20 Gm/30 Ml Udc PO 20 gm TID LIDA Administration Lidocaine 1 patch 08/25/24 09:15 08/30/24 09:10 Lidocaine 5% Patch TRANSDERM Not Given DAILY LIDA Lorazepam 2 mg 08/25/24 05:53 Lorazepam Inj (*Crx) 2 Mg/Ml Vial IV PUSH Q2H PRN CIWA > 15 Lorazepam 2 mg 08/25/24 05:53 08/29/24 22:07 Lorazepam Inj (*Crx) 2 Mg/Ml Vial IV PUSH 2 mg Q4H PRN Administration CIWA 8-15 Lorazepam 1 mg 08/25/24 09:00 08/30/24 09:11 Lorazepam (*Crx) 1 Mg Tablet PO 1 mg Q6H LIDA Administration Magnesium Oxide 400 mg 08/25/24 21:00 08/29/24 22:04 Magnesium Oxide 400 Mg Tablet PO 400 mg HS LIDA Administration Melatonin 3 mg 08/25/24 21:00 08/29/24 22:03 Melatonin 3 Mg Tablet PO 3 mg HS LIDA Administration Ondansetron HCl 4 mg 08/25/24 08:55 08/27/24 03:52 Ondansetron Hcl Odt 4 Mg Tablet PO 4 mg Q8H PRN Administration nausea/vomiting Potassium Chloride 20 meq 08/25/24 09:00 08/30/24 09:11 Potassium Chloride 20 Meq Er Tablet PO 20 meq DAILY LIDA Administration Prazosin HCl 1 mg 08/25/24 09:00 08/30/24 12:46 Prazosin Hcl 1 Mg Capsule PO 1 mg QID LIDA Administration Propranolol HCl 10 mg 08/25/24 09:00 08/30/24 09:10 Propranolol Hcl 10 Mg Tablet PO 10 mg BID LIDA Administration Rifaximin 550 mg 08/25/24 09:00 08/30/24 09:10 Rifaximin 550 Mg Tablet PO 550 mg BID LIDA Administration Simethicone 80 mg 08/25/24 08:55 Simethicone 80 Mg Tab.Chew PO BID PRN Abdominal Discomfort Spironolactone 100 mg 08/25/24 09:00 08/30/24 09:11 Spironolactone 50 Mg Tablet PO 100 mg DAILY LIDA Administration Sucralfate 1,000 mg 08/25/24 09:00 08/30/24 12:45 Sucralfate Susp 100 Mg/Ml 10 Ml Udc PO 1,000 mg TID LIDA Administration Thiamine HCl 100 mg 08/25/24 09:00 08/30/24 09:12 Thiamine Hcl 100 Mg Tablet PO 100 mg DAILY LIDA Administration Trazodone HCl 50 mg 08/25/24 21:00 08/29/24 22:04 Trazodone Hcl 50 Mg Tablet PO 50 mg QHS LIDA Administration Vitamin D 5,000 units 08/25/24 10:00 08/30/24 09:10 Cholecalciferol 5,000 Units Tablet BY MOUTH 5,000 units DAILY LIDA Administration Radiology Results: ITS Impressions Venous Doppler Study 08/24/24 23:10 IMPRESSION: Positive right lower extremity venous US. DVT in the right lower extremity. Chest CTA 08/25/24 05:52 Impression: Pulmonary embolus in the right main pulmonary artery extending to the right lower lobar pulmonary artery and lower lobe segmental branches. No definite evidence of right heart strain. Stable cystic area in the right lung apex with adjacent scarring. Cirrhotic change of the liver. Labs Labs: Laboratory Results - last 24 hr 08/29/24 08/30/24 08/30/24 18:10 00:12 04:50 WBC 7.1 RBC 4.09 L Hgb 13.8 L Hct 40.1 L MCV 98.0 MCH 33.7 MCHC 34.4 RDW 13.0 Plt Count 161 MPV 9.8 Immature Gran % (Auto) 1.8 H Neut % (Auto) 62.9 Lymph % (Auto) 17.4 L [place] % (Auto) 15.1 H Eos % (Auto) 2.1 Baso % (Auto) 0.7 Lymph # (Auto) 1.23 [place] # (Auto) 1.1 H Eos # (Auto) 0.2 Baso # (Auto) 0.1 Abs Immat Gran (auto) 0.13 H Absolute Neuts (auto) 4.4 Absolute Nucleated RBC 0.020 H Nucleated RBC % 0.3 H Sodium 132 L Potassium 3.8 Chloride 97 L Carbon Dioxide 30 Anion Gap 5 BUN 9 Creatinine 0.60 L Estim Creat Clear Calc 155 Estimated GFR > 60 Glucose 119 H POC Capillary Glucose 170 H 111 H Calcium 9.2 Magnesium 1.9 Total Bilirubin 0.3 AST 30 ALT 29 Alkaline Phosphatase 75 Total Protein 7.0 Albumin 3.8 08/30/24 08/30/24 05:04 11:59 WBC RBC Hgb Hct MCV MCH MCHC RDW Plt Count MPV Immature Gran % (Auto) Neut % (Auto) Lymph % (Auto) [place] % (Auto) Eos % (Auto) Baso % (Auto) Lymph # (Auto) [place] # (Auto) Eos # (Auto) Baso # (Auto) Abs Immat Gran (auto) Absolute Neuts (auto) Absolute Nucleated RBC Nucleated RBC % Sodium Potassium Chloride Carbon Dioxide Anion Gap BUN Creatinine Estim Creat Clear Calc Estimated GFR Glucose POC Capillary Glucose 130 H 106 H Calcium Magnesium Total Bilirubin AST ALT Alkaline Phosphatase Total Protein Albumin
[2024-08-30 16:26] LABS: Ammonia 35 umol/L (9-30)
[2024-08-30 18:57] LABS: Glucose Point of Care 150 mg/dl (65-105)
[2024-08-30] MEDS: MAGNESIUM OXIDE 400 MG TABLET PO (21:09)
[2024-08-30] MEDS: traZODone HCL 50 MG TABLET PO (21:09)
[2024-08-30] MEDS: MELATONIN 3 MG TABLET PO (21:09)
[2024-08-31] VITALS (9 sets, daily range): BP systolic 107–112; BP diastolic 78–80; PULSE 70–75; RESP 16; TEMP 36.3; O2SAT 93–95
[2024-08-31 00:31] LABS: Glucose Point of Care 137 mg/dl (65-105)
[2024-08-31] MEDS: HYDROcodone/acetaminophen (*CRX) 10-325 MG TABLET 1 TAB PO ×3 (03:51→14:49)
[2024-08-31] MEDS: LORazepam (*CRX) 1 MG TABLET PO ×2 (03:51→08:38)
[2024-08-31 06:30] LABS: Glucose Point of Care 123 mg/dl (65-105)
[2024-08-31 08:20] LABS: Glucose Point of Care 131 mg/dl (65-105)
[2024-08-31] MEDS: HALOPERIDOL 5 MG TABLET PO (08:35)
[2024-08-31] MEDS: FOLIC ACID 1 MG TABLET PO (08:35)
[2024-08-31] MEDS: PRAZOSIN HCL 1 MG CAPSULE PO ×2 (08:35→12:10)
[2024-08-31] MEDS: rifAXIMin 550 MG TABLET PO (08:36)
[2024-08-31] MEDS: GABAPENTIN 400 MG CAPSULE PO ×2 (08:36→12:10)
[2024-08-31] MEDS: FERROUS SULFATE 325 MG TABLET DR BY MOUTH (08:36)
[2024-08-31] MEDS: busPIRone HCL 5 MG TABLET PO ×2 (08:36→12:10)
[2024-08-31] MEDS: APIXABAN 5 MG TABLET 10 MG PO (08:36)
[2024-08-31] MEDS: PROPRANOLOL HCL 10 MG TABLET PO (08:36)
[2024-08-31] MEDS: SUCRALFATE SUSP 100 MG/ML 10 ML UDC 1000 MG PO ×2 (08:37→12:09)
[2024-08-31] MEDS: THIAMINE HCL 100 MG TABLET PO (08:37)
[2024-08-31] MEDS: buPROPion HCL 100 MG TABLET PO ×2 (08:37→12:10)
[2024-08-31] MEDS: SPIRONOLACTONE 50 MG TABLET 100 MG PO (08:37)
[2024-08-31] MEDS: LACTULOSE 20 GM/30 ML UDC PO ×2 (08:37→12:09)
[2024-08-31] MEDS: FUROSEMIDE 40 MG TABLET PO (08:37)
[2024-08-31] MEDS: BACLOFEN 10 MG TABLET PO (08:37)
[2024-08-31] MEDS: CHOLECALCIFEROL 5,000 UNITS TABLET 5000 UNITS BY MOUTH (08:37)
[2024-08-31] MEDS: hydrOXYzine HCL 25 MG TABLET PO ×2 (08:37→12:10)
[2024-08-31] MEDS: ACIDOPHILUS/BULGARICUS CHEWABLE TABLET 1 TABLET BY MOUTH (08:38)
[2024-08-31] MEDS: CALCIUM CARBONATE (TUMS) 500 MG (200 MG ELEMENTAL) PO ×2 (08:38→12:09)
[2024-08-31] MEDS: POTASSIUM CHLORIDE 20 MEQ ER TABLET PO (08:38)
--- NOTE | 2024-08-31 11:24 | PM.DS ---
DS: Admitting Diagnosis Discharge Date 08/31/24 Admitting Diagnosis Alcohol withdrawal DS: Discharge Diagnosis Discharge Diagnosis (1) Alcohol use disorder: Code(s): F10.90 - Alcohol use, unspecified, uncomplicated Status: Acute (2) Pulmonary embolism: Code(s): I26.99 - Other pulmonary embolism without acute cor pulmonale Status: Acute (3) Deep vein thrombosis (DVT) of right lower extremity: Qualifiers: Affected thrombotic vein of extremity: unspecified vein of extremity Chronicity: acute Qualified Code(s): I82.401 - Acute embolism and thrombosis of unspecified deep veins of right lower extremity Code(s): I82.401 - Acute embolism and thrombosis of unspecified deep veins of right lower extremity Status: Acute (4) Cirrhosis: Qualifiers: Ascites presence: without ascites Hepatic cirrhosis type: alcoholic cirrhosis Qualified Code(s): K70.30 - Alcoholic cirrhosis of liver without ascites Code(s): K74.60 - Unspecified cirrhosis of liver Status: Acute (5) Fracture of left hip: Code(s): S72.002A - Fracture of unspecified part of neck of left femur, initial encounter for closed fracture Status: Chronic (6) Depression with anxiety: Code(s): F41.8 - Other specified anxiety disorders Status: Acute DS: Summary Hospital Course Reason for hospitalization: 38yo male with hx of alcoholism, depression and cirrhosis here for possible alcohol w/d. He is wheelchair bound and lives at a long term. Please see H&P for details. Hospital Course: Patient currently resides at [facility] and is wheelchair bound due to a chronic left hip fracture with nonunion. Per patient, plan for surgical repair once he has appropriate dental care. States over the past 12 days he has been drinking at least half a Liter of vodka per day. He last drink was at 730am on 08/24. States his cousin brings him in alcohol into the long term. States he wants to quit drinking and avoid withdrawal symptoms. Has had withdrawal sx's and self reported DTs in the past with quitting drinking. He states he has had seizures before with quitting. CIWA protocol started. On thiamine which was continued. He is also on scheduled ativan and narcotics. He had prn medications for elevated CIWA score. His CIWA score has improved and now down to 5-7 range. He was educated about the benefits of abstaining from alcohol use. I did speak with him about his medications and that he seems oversedated. He agrees and requests the scheduled Ativan dose be cut back to 0.5mg Q6hr. I recommended that he speaks with his doctor about this to see if further titration is necessary. He voices understanding. As above, patient has a history of previous left hip fracture which he did not undergo surgical repair of. He is currently wheelchair bound. Patient reports having pain throughout his right medial upper thigh for the past 7 days. He denies any fall or injury. Venous ultrasound was positive for extensive thrombosis of RLE. CTA chest showed PE in the right main pulmonary artery extending to the right lower lobe pulmonary artery and lower lobe segmental branches with no definitive evidence of right heart strain. Stable cystic area in the right lung apex with adjacent scarring. Echo with EF 60-65% with no valvular abnormality noted. Please see reports for details. He was started on Lovenox and was transitioned to Eliquis. CT scan also showing cirrhosis of liver. 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 We continued Lactulose, Aldactone and Rifaximin. For his depression/Anxiety, we continued his on Haldol, scheduled Ativan, Wellbutrin and Buspar. He overall did well and was able to be discharged back to the long term on 08/31/24 Status at Discharge Cognitive/behavioral status at discharge: stable Time Spent with Patient Time attestation: Total time spent providing and/or coordinating discharge services: 35 minutes Time spent: Greater than 30 minutes Exam Narrative: AF 97.3 112/80 72 16 93% ra Gen - NARD Chest - few bibasilar crackles. CV - RRR S1/S2. Tele showing no significant dysrhythmias Abd - Soft, obese, NT Ext - No pedal edema, 2+ PT pulses. Psych - Nml mood and affect Skin - Warm and dry DS: Data Data Completed and Pending Labs on day of discharge: Labs from last 24 hours 08/31/24 08/31/24 08/31/24 08:09 05:32 00:25 POC Capillary Glucose 131 H 123 H 137 H Ammonia 08/30/24 08/30/24 08/30/24 18:52 16:08 11:59 POC Capillary Glucose 150 H 106 H Ammonia 35 H Discharge Plan Discharge Attending physician on discharge: Valdez Gottlieb Discharging Clinician: Valdez Gottlieb Anticipated Discharge Date/Time: 08/31/24 12:40 Patient Disposition: NH Care Home/Asst Living Activity: other - see discharge instructions Diet: regular Discharge Instructions: Wheel chair bound. Hip precautions. Stop using all products that contain alcohol. RN: please restrict family delivery of alcohol to the patient. Check blood pressure 1 to 2 times a day. Record for the doctor's review. Take precautions to avoid falls. The patient is taking both a narcotic and a benzodiazepine. Please have primary provider review medication list to see if this is still appropriate. Contact the doctor if the patient has any type of trauma, lightheadedness or other worrisome symptoms. Avoid NSAIDs (ibuprofen, naproxen, Aleve). Tylenol is safe to take. Take Eliquis 10mg Q12HR through the morning dose on 09/03/24 then decrease to Eliquis 5mg Q12HR to start in the evening of 09/03/24. Follow-up with the provider at the facility. Follow-up with orthopedics at next scheduled appointment. Thank you for using [facility] for your health care needs. Patient Instructions: Antibiotic Form, Apixaban (By mouth) Stand Alone Forms: General Discharge Information Discharge Medications: New Eliquis DVT-PE Treat 30D Start 5 mg (74 tabs) tablets,dose pack See Rx Instructions .ROUTE .COMPLEX Qty: 74 0RF Rx Instructions: orally per package directions Continued folic acid 1 mg tablet 1 mg PO DAILY Qty: 30 0RF thiamine HCl (vitamin B1) 100 mg Tablet 100 mg PO DAILY ferrous sulfate 325 mg (65 mg iron) Tablet 325 mg PO DAILY Xifaxan 550 mg tablet 550 mg PO BID spironolactone [Aldactone] 50 mg tablet 100 mg PO DAILY furosemide [Lasix] 20 mg tablet 40 mg PO BID sucralfate 100 mg/mL suspension 10 ml PO TID diclofenac sodium 1 % Gel 2 g TOPICAL BID PRN (Reason: Pain) Rx Instructions: ANYWHERE ON THE BODY magnesium oxide 400 mg tablet 400 mg PO HS propranolol 10 mg tablet 10 mg PO BID lidocaine [Aspercreme (lidocaine)] 4 % Adhesive Patch,Medicated 1 patch TOPICAL DAILY Rx Instructions: Apply to Rt. Upper quadrant of abdomen Acidophilus Tablet 1,000 mmu cells PO BID Biofreeze (menthol) 5 % Adhesive Patch,Medicated 1 patch TOPICAL DAILY Rx Instructions: 1 patch to abdomen haloperidol 5 mg tablet 5 mg PO BID gabapentin 400 mg capsule 400 mg PO TID simethicone 80 mg Tablet,Chewable 80 mg PO BID PRN (Reason: Abdominal Discomfort) [id number]-haflybx-diperod Ointment 1 ea TOPICAL QID hydrocodone-acetaminophen 10-325 mg tablet 1 tablet PO Q6H Qty: 5 0RF melatonin 3 mg Tablet 3 mg PO HS acetaminophen [Acetaminophen Extra Strength] 500 mg Tablet 1,000 mg PO Q6H PRN (Reason: Pain) calcium carbonate 500 mg calcium (1,250 mg) Tablet,Chewable 500 mg PO TID Rx Instructions: With Meals cholecalciferol (vitamin D3) 125 mcg (5,000 unit) Tablet 125 mcg PO DAILY potassium chloride 20 mEq Tablet Extended Release 20 meq PO DAILY trazodone 50 mg tablet 50 mg PO QHS prazosin 1 mg capsule 1 mg PO QID ondansetron HCl 4 mg Tablet 4 mg PO Q8H PRN (Reason: nausea/vomiting) bupropion HCl 100 mg tablet 100 mg PO TID lactulose 10 gram/15 mL solution 30 ml PO TID buspirone 5 mg tablet 5 mg PO TID baclofen 10 mg tablet 10 mg PO BID hydroxyzine HCl 25 mg tablet 25 mg PO TID Changed lorazepam 1 mg tablet 0.5 mg PO Q6H Qty: 5 0RF Date of admission: 08/26/24 13:42 Primary Care Provider: Teodoro Lopez Admitting Provider: Hiral Garrido Attending physician on admission: Andrez Barbour Condition: Stable Hospitalist MIPS Heart Failure (Exclusion) Patient has history of Heart Transplant or Left Ventricular Assistive Device?: No IF YES, STOP HERE Heart Failure (Qualifier) Patient has current or prior documentation of LVEF less than or equal to 40%, or mod/servere depressed LVSF?: No IF NO, STOP HERE
[2024-08-31 11:47] LABS: Glucose Point of Care 112 mg/dl (65-105)
[2024-08-31 14:03] LABS: SARS-CoV-2 RNA PCR Negative (Negative)
[2024-08-31 16:59] LABS: Glucose Point of Care 123 mg/dl (65-105)
== END 2024-08-31 17:25 | DRG 896 ==
LOC: ANHED 08-25 06:09 → ANH2MED 08-25 06:34
PROVIDERS: Internal Medicine; Admitting Provider Internal Medicine; Emergency Provider Physician Assistant; PCP Hospitalist; Visit Provider Internal Medicine
DX: F10.139 Alcohol abuse with withdrawal, unspecified (principal); I26.99 Other pulmonary embolism without acute cor pulmonale; I82.411 Acute embolism and thrombosis of right femoral vein; S72.002K Fracture of unspecified part of neck of left femur, subsequent encounter for closed fracture with nonunion; K70.30 Alcoholic cirrhosis of liver without ascites; K20.80 Other esophagitis without bleeding; K22.70 Barrett's esophagus without dysplasia; D64.9 Anemia, unspecified; F41.8 Other specified anxiety disorders; F17.210 Nicotine dependence, cigarettes, uncomplicated; Z99.3 Dependence on wheelchair; Z20.822 Contact with and (suspected) exposure to COVID-19
CPT/HCPCS: 36415; 71275; 80053; 82077; 82140; 82948; 83690; 83735; 83880; 84484; 85025; 85055; 85610; 85730; 87635; 93005; 93306; 93971; 96361; 96372; 96374; 96375; 97110; 97161; 97165; 97530; 97535; 99285; A9270; G0378; J1650; J2060; J2560; J3411; J7030; Q9967

== ENCOUNTER 2024-09-05 16:35 | Emergency (ER) | payer MEDICARE, MEDICAID, SELFPAY ==
[2024-09-05] VITALS (22 sets, daily range): BP systolic 115–128; BP diastolic 83–91; PULSE 75–83; RESP 13–27; TEMP 36.4–36.6; O2SAT 97–100
--- NOTE | ~2024-09-05 | XR_ITS ---
CHEST RADIOGRAPH CLINICAL HISTORY: chest pressure, SOB . COMPARISON: 06/18/2024 TECHNIQUE: Single portable view of the chest. FINDINGS The cardiomediastinal silhouette is unremarkable. The lungs are clear. Visualized osseous structures and soft tissues are unremarkable. IMPRESSION: No focal infiltrate or effusion. Reviewed, dictated and finalized at location A. DESK COORDINATOR
--- NOTE | ~2024-09-05 | CT_ITS ---
EXAMINATION: CTA chest PE protocol DATE: 09/05/2024 21:29 [employer] INDICATION: Shortness of breath TECHNIQUE: Computed tomographic angiography (CTA) of the chest was performed with 100 mL Omnipaque-35 0 intravenous contrast. The dose-length product was 623.10 mGy-cm. Maximum intensity projection 3D-re constructions of the aorta and other arteries were constructed by the technologist on a separate work station. COMPARISON: 08/25/2024 FINDINGS: Redemonstration of a pulmonary embolus within the 2 branches of the descending pulmonary artery. No p rogression is identified. The lungs are clear. No findings to suggest right heart strain are identified. The RV to LV ratio is less than 1. No aortic dissection or aneurysm is present. Nodular contour of the liver, unchanged. IMPRESSION: Redemonstration of a right-sided pulmonary embolus, unchanged from examination performed 11 days luke ier. No right heart strain. Reviewed, dictated and finalized at location A. [employer] TE[employer]ER IMPRESSION: Redemonstration of a right-sided pulmonary embolus, unchanged from examination performed 11 days earlier. No right heart strain.
[2024-09-05 18:42] LABS: Alanine Aminotransferase 40 U/L (6-50); Albumin Level 4.8 g/dL (3.5-5.1); Alkaline Phosphatase 80 U/L (38-126); Anion Gap 10 mmol/L (4-12); Aspartate Amino Transferase 37 U/L (17-59); Bilirubin,Total 0.7 mg/dL (0.2-1.3); Blood Urea Nitrogen 8 mg/dL (9-20); Calcium 9.6 mg/dL (8.4-10.2); Carbon Dioxide 28 mmol/L (22-30); Chloride 100 mmol/L (98-107); Estimated CRCL calculation 103 ml/min; Estimated Glomerular Filt Rate > 60; Glucose 92 mg/dL (65-110); Potassium 4.2 mmol/L (3.4-5.0); Sodium 138 mmol/L (137-145)
[2024-09-05 19:10] LABS: INR 1.1; Prothrombin Time 14.2 Seconds (11.1-14.7)
[2024-09-05 19:11] LABS: Partial Thromboplastin Time 32.9 Seconds (22.3-36.8)
--- NOTE | 2024-09-05 19:20 | ECG_ITS ---
Test Date: 2024-09-05 20:06:03 Measurements Intervals Fabius Rate: 75 P: 27 DE: 142 QRS: -7 QRSD: 99 T: 30 QT: 391 QTc: 438 Interpretive Statements SINUS RHYTHM DELAYED PRECORDIAL R/S TRANSITION NONSPECIFIC T-WAVE ABNORMALITY- ANTERIOR LEADS BASELINE ARTIFACT- I, II, AVR, V6 BORDERLINE ECG Compared to ECG 08/25/2024 00:26:09 NO SIGNIFICANT CHANGE Electronically Signed On 09-05-2024 20:31:54 SEO EXPERT by Carl Fitzgerald D.O.
--- NOTE | 2024-09-05 19:20 | ED_ITS ---
HPI - Extremity Problem General Chief complaint: Extremity Injury, Lower Stated complaint: SOB Time Seen by Provider: 09/05/24 19:03 Source: patient, RN notes reviewed and old records reviewed Limitations: no limitations History of Present Illness HPI Narrative: Patient presents from [facility] where he has resided for the past 4 years with report of right leg pain and shortness of breath. He describes it as a chest pressure in the center of his chest. He states that he was recently diagnosed with a DVT in his right lower extremity and that he had previously been diagnosed with this but it became worse. He notes that his primary care physician is the facility medical voucher clerk. History of alcohol abuse and ascites from liver failure who states his last drink was 2 weeks ago. He denies any chest pain. He states his last paracentesis was 2 years ago. Patient states he has been taking his anticoagulation as he takes all of the medications he receives at the facility. Related Data Home Medications Medication Instructions Recorded Confirmed thiamine HCl (vitamin B1) 100 mg 100 mg PO DAILY 04/20/21 08/25/24 tablet melatonin 3 mg tablet 3 mg PO HS 09/15/21 08/25/24 ferrous sulfate 325 mg (65 mg 325 mg PO DAILY 11/12/21 08/25/24 iron) tablet rifaximin 550 mg tablet (Xifaxan) 550 mg PO BID 11/12/21 08/25/24 acetaminophen 500 mg tablet 1,000 mg PO Q6H PRN Pain 06/24/22 08/25/24 (Acetaminophen Extra Strength) calcium carbonate 500 mg PO TID 06/24/22 08/25/24 cholecalciferol (vitamin D3) 125 125 mcg PO DAILY 06/24/22 08/25/24 mcg (5,000 unit) tablet potassium chloride 20 mEq 20 meq PO DAILY 06/24/22 08/25/24 tablet,extended release furosemide 20 mg tablet (Lasix) 40 mg PO BID 12/14/22 08/25/24 spironolactone 50 mg tablet 100 mg PO DAILY 12/14/22 08/25/24 (Aldactone) diclofenac sodium 1 % topical gel 2 g topical BID PRN Pain 12/15/23 08/25/24 magnesium oxide 400 mg PO HS 12/15/23 08/25/24 propranolol 10 mg tablet 10 mg PO BID 12/15/23 08/25/24 sucralfate 100 mg/mL oral 10 ml PO TID 12/15/23 08/25/24 suspension baclofen 10 mg tablet 10 mg PO BID 01/12/24 08/25/24 bupropion HCl 100 mg tablet 100 mg PO TID 01/12/24 08/25/24 buspirone 5 mg tablet 5 mg PO TID Anxiety 01/12/24 08/25/24 hydroxyzine HCl 25 mg tablet 25 mg PO TID Anxiety 01/12/24 08/25/24 lactulose 10 gram/15 mL oral 30 ml PO TID 01/12/24 08/25/24 solution ondansetron HCl 4 mg tablet 4 mg PO Q8H PRN nausea/vomiting 01/12/24 08/25/24 prazosin 1 mg capsule 1 mg PO QID 01/12/24 08/25/24 trazodone 50 mg tablet 50 mg PO QHS 01/12/24 08/25/24 Lactobacillus acidophilus 1,000 mmu cells PO BID 08/25/24 08/25/24 gabapentin 400 mg capsule 400 mg PO TID 08/25/24 08/25/24 haloperidol 5 mg tablet 5 mg PO BID 08/25/24 08/25/24 lidocaine 4 % topical patch 1 patch topical DAILY 08/25/24 08/25/24 (Aspercreme (lidocaine)) menthol 5 % topical patch 1 patch topical DAILY 08/25/24 08/25/24 (Biofreeze (menthol)) [id number]-diperod 1 ea topical QID 08/25/24 08/25/24 topical ointment simethicone 80 mg chewable tablet 80 mg PO BID PRN Abdominal 08/25/24 08/25/24 Discomfort Allergies Allergy/AdvReac Type Severity Reaction Status Date / Time peanut Allergy Severe Anaphylaxis Verified 03/26/24 08:05 shellfish derived Allergy Unknown Unknown Verified 08/25/24 07:35 mushroom AdvReac Unknown Verified 03/26/24 08:05 [facility] Past Medical History Medical History Alcohol abuse Alcoholic hepatitis Holt's esophagus with esophagitis Chronic anemia Cirrhosis Depression with anxiety DVT (deep venous thrombosis) Elevated white blood cell count, unspecified Esophageal varices Fracture of left hip GI bleed Secondary to bleeding varices. Hepatic failure, unspecified without coma Insomnia, unspecified Pulmonary embolism Tobacco abuse Surgical History Surgical History History of colonoscopy with polypectomy (05/25/22) Benign colon polyp, internal hemorrhoids. History of esophagogastroduodenoscopy (05/22/22) Nonbleeding esophageal varices, Holt esophagus without dysplasia, gastritis. Family History Family History Mother Liver disease Cirrhosis Grandparent Heart failure Heart attack Social History Social History Social History: Surrogate medical decision maker: Modesto Diaz, father. Code status: Full code. Smoking packs per day: 0.25 Smoking cigarettes per day: 5.0 Years smoked: 20 Smoking pack-years: 5.00 Smoking status: Current every day smoker Additional smoking assessment comments: Now smoking about 5 cigarettes a day while at a residential facility. T Alcohol intake: current Drinks per week: 120 Alcohol use details: Longstanding history of alcohol abuse. Substance use: current Substance use type: does not use Last use: 6 literals vodka week Do You Feel Safe in your Home?: Yes Lack of Transportation: No Lack of Food: Never True Current Housing: I Have Housing Concerned About Future Housing: No Difficulty Paying Gas/Electric Bills: No Difficulty Paying for Meds: No Currently Unemployed: No Education: High School Diploma/GED Difficulty w/ Childcare or Family Care: No Living arrangements: [facility] Additional living arrangements comments: Currently at [facility] Spiritual care concerns: No Exam Narrative: GENERAL: Chronically ill-appearing but well-nourished, and in no acute dist ress. HEAD: Normocephalic, atraumatic. EYES: Non injected, non icteric ENT: Nares clear, no rhinorrhea or epistaxis. White film on tongue/thrush NECK: Supple. CHEST: Speaking in full sentences. No respiratory distress. HEART: Regular rate and rhythm. ABDOMEN: Soft, nondistended. EXTREMITIES: Normal range of motion. Some pain palpation of the medial proximal right thigh as well as in the right popliteal fossa but without palpable cord or dilated veins or skin changes suggestive of phlegmasia SKIN: Warm, dry. Flaky skin on head NEURO: No focal deficits. Alert and oriented x3. PSYCH: Normal mood and affect. Course Vital Signs Vital signs: Vital Signs Temperature 97.8 F 09/05/24 16:38 Pulse Rate 76 09/05/24 16:38 Respiratory Rate 18 09/05/24 16:38 Pulse Oximetry 99 09/05/24 16:38 Oxygen Delivery Room Air 09/05/24 16:38 Temperature 97.8 F 09/06/24 02:50 Pulse Rate 70 09/06/24 02:50 Respiratory Rate 17 09/06/24 02:50 Blood Pressure 140/83 09/06/24 02:50 Pulse Oximetry 99 09/06/24 02:50 Oxygen Delivery Room Air 09/05/24 16:38 MDM - Extremity (Nontraumatic) MDM Narrative Medical decision making narrative: Patient presents with right lower extremity pain and shortness of breath. He notes that he was diagnosed with a DVT in this leg today and that he had been diagnosed with a DVT in this leg previously but that he was told it is worse. In the emergency department they are afebrile with vital signs within normal limits. Patient's problem list and medication list are reviewed from the [facility] but without notation of DVT or PE and patient is not on anticoagulation per review. Patient had been diagnosed with DVT/PE during recent hospitalization here but appears they were not added to his problem list here (done now). It does appear that a prescription for Eliquis had been sent but perhaps not filled. Attempted to contact patient's nursing facility but no one answered after 5 minutes of being on hold. Patient denies shortness of breath. Workup generally unremarkable including EKG and CT which do not show evidence of right heart strain. Patient is hemodynamically stable, not requiring oxygen or tachycardic. Stable for discharge back to the facility and provided another prescription for Eliquis and strongly encourage that these be added to his problem list and he received this medication. He was given a dose in the emergency department while awaiting transportation back to facility. Medical Records Attestation: I reviewed the patient's medical records. Medical records narrative: Patient has venous Doppler report performed on the right leg today 09/05/2024 which showed: Extensive acute DVT right lower extremity 08/24/24 US: IMPRESSION: Positive right lower extremity venous US. DVT in the right lower extremity. 08/25/24 CTA Chest Impression: Pulmonary embolus in the right main pulmonary artery extending to the right lower lobar pulmonary artery and lower lobe segmental branches. No definite evidence of right heart strain. Stable cystic area in the right lung apex with adjacent scarring. Cirrhotic change of the liver. Lab Data 09/05/24 20:46 09/05/24 17:46 Labs: Lab Results 09/05/24 09/05/24 Range/Units 17:46 20:46 WBC 8.8 (4.5-10.0) K/mm3 RBC 5.17 (4.6-6.20) M/mm3 Hgb 17.2 D (14.0-18.0) g/dL Hct 49.8 (42.0-52.0) % MCV 96.3 (80-100) fl MCH 33.3 (26-34) pg MCHC 34.5 (32-36) g/dl RDW 12.8 (11.5-14.5) % Plt Count 235 (150-375) k/mm3 MPV 9.2 (7.4-10.4) fl Immature Gran % (Auto) 0.6 H (0-0.5) % Neut % (Auto) 63.7 (45.5-73.1) % Lymph % (Auto) 21.6 (18.3-44.2) % [place] % (Auto) 11.8 H (2.6-8.5) % Eos % (Auto) 1.5 (0-4.4) % Baso % (Auto) 0.8 (0.2-1.2) % Lymph # (Auto) 1.90 (0.9-3.2) K/mm3 [place] # (Auto) 1.0 H (0.1-0.6) K/mm3 Eos # (Auto) 0.1 (0-0.3) K/mm3 Baso # (Auto) 0.1 (0.0-0.1) K/mm3 Abs Immat Gran (auto) 0.05 H (0.00-0.031) K/mm3 Absolute Neuts (auto) 5.6 (1.3-6.7) K/mm3 Absolute Nucleated RBC 0.000 (0.0-0.012) K/mm3 Nucleated RBC % 0.0 (0.0-0.2) % PT 14.2 (11.1-14.7) Seconds INR 1.1 APTT 32.9 (22.3-36.8) Seconds Sodium 138 (137-145) mmol/L Potassium 4.2 (3.4-5.0) mmol/L Chloride 100 (98-107) mmol/L Carbon Dioxide 28 (22-30) mmol/L Anion Gap 10 (4-12) mmol/L BUN 8 L (9-20) mg/dL Creatinine 0.90 (0.7-1.3) mg/dL Estim Creat Clear Calc 103 ml/min Estimated GFR > 60 (59 - ) Glucose 92 (65-110) mg/dL Calcium 9.6 (8.4-10.2) mg/dL Total Bilirubin 0.7 (0.2-1.3) mg/dL AST 37 (17-59) U/L ALT 40 (6-50) U/L Alkaline Phosphatase 80 (38-126) U/L Troponin I < 0.012 (0.000-0.034) ng/mL NT-Pro-B Natriuret Pep < 20 (19.9-100) pg/mL Total Protein 9.0 H (6.3-8.2) g/dL Albumin 4.8 (3.5-5.1) g/dL Imaging Data Radiologist's impression: Impressions Chest X-Ray 09/05/24 19:45 IMPRESSION: No focal infiltrate or effusion. Chest CTA 09/05/24 21:29 IMPRESSION: Redemonstration of a right-sided pulmonary embolus, unchanged from examination performed 11 days earlier. No right heart strain. ECG Data EKG #1: Attestation EKG: I personally reviewed and interpreted this ECG as follows: ECG completion date: 09/05/24 ECG completion time: 20:06 Interpretation: Normal sinus rhythm at a rate of 75 beats per minute. SC interval 142. QRS 99. QT/QTC 391/420. Good R-wave progression across the precordial leads. Possibly biphasic versus flattened T-waves in lead 3 but otherwise upright in contiguous inferior leads 2 and AVF. There is also T-wave inversion in V3 . Discharge Plan Discharge Clinical Impression: Deep vein thrombosis (DVT) of right lower extremity Qualifiers: Chronicity: chronic Pulmonary embolism Qualifiers: Pulmonary embolism type: unspecified Chronicity: chronic Acute cor pulmonale presence: without acute cor pulmonale Qualified Code(s): I27.82 - Chronic pulmonary embolism Patient Disposition: NH Long-Term/Asst Living Condition: Stable Instructions: Antibiotic Form, Pulmonary Embolism (ED), Deep Vein Thrombosis (DC) Additional Instructions: Patient has a deep vein thrombosis (blood clot) in his leg and a pulmonary embolism (blood clot) in his lung. These are not new diagnoses and have been found previously. Please add these 2 medical problem list in his documentation and patient is being prescribed an anticoagulation medicine for this which he needs to take. This had been previously prescribed upon last hospital discharge but does not appear on his medication list so it appears he has not been getting them. He was given a dose in the emergency department tonight. If he has additional pain, it is safe to take acetaminophen/Tylenol (maximum 4000 mg per day but remember to include the 325mg in many narcotic medications given) but, because he is on Elliquis, he will need to avoid NSAIDs such as Motrin, ibuprofen, naproxen, Advil, Aleve, etc. for any pain complaints. Follow up with primary care provider/ facility medical voucher clerk. Return to the emergency department with any new or worsening symptoms. Prescriptions: New apixaban 5 mg tablet 5 mg PO BID Qty: 30 0RF acetaminophen 650 mg tablet extended release 650 mg PO Q8H PRN (Reason: pain) Qty: 20 0RF No Action folic acid 1 mg tablet 1 mg PO DAILY Qty: 30 0RF thiamine HCl (vitamin B1) 100 mg Tablet 100 mg PO DAILY ferrous sulfate 325 mg (65 mg iron) Tablet 325 mg PO DAILY Xifaxan 550 mg tablet 550 mg PO BID spironolactone [Aldactone] 50 mg tablet 100 mg PO DAILY furosemide [Lasix] 20 mg tablet 40 mg PO BID sucralfate 100 mg/mL suspension 10 ml PO TID diclofenac sodium 1 % Gel 2 g TOPICAL BID PRN (Reason: Pain) Rx Instructions: ANYWHERE ON THE BODY magnesium oxide 400 mg tablet 400 mg PO HS propranolol 10 mg tablet 10 mg PO BID Eliquis DVT-PE Treat 30D Start 5 mg (74 tabs) tablets,dose pack See Rx Instructions .ROUTE .COMPLEX Qty: 74 0RF Rx Instructions: orally per package directions lidocaine [Aspercreme (lidocaine)] 4 % Adhesive Patch,Medicated 1 patch TOPICAL DAILY Rx Instructions: Apply to Rt. Upper quadrant of abdomen Lactobacillus acidophilus Tablet 1,000 mmu cells PO BID Biofreeze (menthol) 5 % Adhesive Patch,Medicated 1 patch TOPICAL DAILY Rx Instructions: 1 patch to abdomen haloperidol 5 mg tablet 5 mg PO BID gabapentin 400 mg capsule 400 mg PO TID simethicone 80 mg Tablet,Chewable 80 mg PO BID PRN (Reason: Abdominal Discomfort) [id number]-[id number]-ifennwu-diperod Ointment 1 ea TOPICAL QID hydrocodone-acetaminophen 10-325 mg tablet 1 tablet PO Q6H Qty: 5 0RF lorazepam 1 mg tablet 0.5 mg PO Q6H Qty: 5 0RF melatonin 3 mg Tablet 3 mg PO HS acetaminophen [Acetaminophen Extra Strength] 500 mg Tablet 1,000 mg PO Q6H PRN (Reason: Pain) calcium carbonate 500 mg calcium (1,250 mg) Tablet,Chewable 500 mg PO TID Rx Instructions: With Meals cholecalciferol (vitamin D3) 125 mcg (5,000 unit) Tablet 125 mcg PO DAILY potassium chloride 20 mEq Tablet Extended Release 20 meq PO DAILY trazodone 50 mg tablet 50 mg PO QHS prazosin 1 mg capsule 1 mg PO QID ondansetron HCl 4 mg Tablet 4 mg PO Q8H PRN (Reason: nausea/vomiting) bupropion HCl 100 mg tablet 100 mg PO TID lactulose 10 gram/15 mL solution 30 ml PO TID buspirone 5 mg tablet 5 mg PO TID baclofen 10 mg tablet 10 mg PO BID hydroxyzine HCl 25 mg tablet 25 mg PO TID Follow-up/Referrals: Teodoro Lopez MD [Primary Care Provider] - Stand Alone Forms: [facility] Discharge Time of Disposition: 22:47
[2024-09-05 20:52] LABS: Basophils Absolute Auto 0.1 K/mm3 (0.0-0.1); Basophils Percent Auto 0.8 % (0.2-1.2); Eosinophils Absolute Auto 0.1 K/mm3 (0-0.3); Eosinophils Percent Auto 1.5 % (0-4.4); Hematocrit 49.8 % (42.0-52.0); Hemoglobin 17.2 g/dL (14.0-18.0); Immature Granulocyte Absolute 0.05 K/mm3 (0.00-0.031); Immature Granulocyte Percent A 0.6 % (0-0.5); Lymphocytes Percent Auto 21.6 % (18.3-44.2); Mean Corpuscular HGB Conc 34.5 g/dl (32-36); Mean Corpuscular Hemoglobin 33.3 pg (26-34); Mean Corpuscular Volume 96.3 fl (80-100); Mean Platelet Volume 9.2 fl (7.4-10.4); Monocytes Percent Auto 11.8 % (2.6-8.5); Neutrophils Absolute Auto 5.6 K/mm3 (1.3-6.7); Neutrophils Percent Auto 63.7 % (45.5-73.1); Platelet Count Result 235 k/mm3 (150-375); Red Blood Count 5.17 M/mm3 (4.6-6.20); Red Cell Distribution Width 12.8 % (11.5-14.5); White Blood Count 8.8 K/mm3 (4.5-10.0)
[2024-09-05 21:15] LABS: NT Pro B Type Natriuretic Pept < 20 pg/mL (19.9-100); Troponin I < 0.012 ng/mL (0.000-0.034)
[2024-09-05] MEDS: HYDROcodone/acetaminophen (*CRX) 5-325 MG TABLET 1 TAB PO (22:02)
[2024-09-05] MEDS: APIXABAN 5 MG TABLET PO (22:14)
[2024-09-05] MEDS: ACETAMINOPHEN 325 MG TABLET 650 MG PO (23:02)
[2024-09-06] VITALS: PULSE 75; RESP 14; O2SAT 97
[2024-09-06 00:35] VITALS: PULSE 85; RESP 14; O2SAT 94
[2024-09-06 01:08] VITALS: O2SAT 98
--- NOTE | 2024-09-06 01:10 | PC.NURSE ---
This RN spoke with a nurse on staff at [facility] in [place]. this RN updated about pt condition and transfer back to facility.
[2024-09-06 01:15] VITALS: O2SAT 97
[2024-09-06 02:20] VITALS: BP 140/83; PULSE 70; RESP 17; O2SAT 99
[2024-09-06 02:50] VITALS: BP 140/83; PULSE 70; RESP 17; TEMP 36.6; O2SAT 99
== END 2024-09-06 02:55 ==
PROVIDERS: Emergency Medicine; Emergency Provider Student in an Organized Health Care Education/Training Program; PCP Hospitalist
DX: I27.82 Chronic pulmonary embolism (principal); I82.401 Acute embolism and thrombosis of unspecified deep veins of right lower extremity; F17.210 Nicotine dependence, cigarettes, uncomplicated; F41.9 Anxiety disorder, unspecified; F32.A Depression, unspecified; K74.60 Unspecified cirrhosis of liver; D64.9 Anemia, unspecified; Z79.01 Long term (current) use of anticoagulants
CPT/HCPCS: 36415; 71045; 71275; 80053; 83880; 84484; 85025; 85610; 85730; 93005; 99284; A9270; Q9967

== ENCOUNTER 2024-10-09 16:28 | Inpatient (IN) | payer MEDICARE, MEDICAID, SELFPAY ==
[2024-10-09] VITALS (13 sets, daily range): BP systolic 98–131; BP diastolic 68–88; PULSE 82–88; RESP 13–20; TEMP 36.2; O2SAT 96–100
--- NOTE | ~2024-10-09 | CT_ITS ---
EXAMINATION: CT abdomen pelvis w con DATE: 10/09/2024 19:58 INDICATION: Epigastric abdominal pain. Right upper quadrant abdominal pain. TECHNIQUE: Computed tomography (CT) of the abdomen and pelvis was performed with 100 mL Omnipaque 350 intravenous contrast. Automated exposure control and iterative reconstruction technique were employe d. The dose-length product was 1176.18 mGy-cm. COMPARISON: CT abdomen and pelvis 04/23/2024 FINDINGS: The visualized portions of the lung bases demonstrate mild atelectasis. No pleural effusion . The heart size is normal. No pericardial effusion. There is bilateral gynecomastia. Paraesophageal varices are noted. The liver demonstrates steatosis and surface nodularity, consistent with cirrhosis . The spleen is normal in size. There is a periumbilical portacaval shunt. The gallbladder, pancreas, adrenal glands, and kidneys are normal. There is prominent fat in the inguinal canals that may be he rnias. The appendix is normal. There are no dilated loops of bowel. There are no pathologically enlar ged lymph nodes. There is no free intraperitoneal fluid. There is an umbilical hernia containing fat. There is an old fracture of left femoral neck with nonunion. There is mild thoracic and lumbar spond ylosis. IMPRESSION: 1. Cirrhosis of the liver with portal venous hypertension. 2. Umbilical hernia containing fat. Reviewed, dictated and finalized at location A. TRONIC PAGE MAKEUP SYSTEM OPERATOR
--- NOTE | ~2024-10-09 | CT_ITS ---
EXAMINATION: CT cervical spine wo con DATE: 10/11/2024 16:06 INDICATION: Fall. TECHNIQUE: Computed tomography (CT) of the cervical spine was performed without intravenous contrast. Automated exposure control and iterative reconstruction technique were employed. The dose-length pro duct was 528.77 mGy-cm. COMPARISON: None FINDINGS: There is mild scarring at the lung apices. Alignment is normal. Vertebral body heights are normal. Intervertebral disc heights are normal. There is an old fracture of left first rib with nonun ion. There is multilevel mild facet joint osteoarthritis. At C3-C4, there is moderate bilateral facet joint osteoarthritis. No neural foraminal stenosis or central canal stenosis. IMPRESSION: 1. No acute fracture. Reviewed, dictated and finalized at location A. CTOR FINANCIAL PLANNING IMPRESSION: 1. No acute fracture.
--- NOTE | ~2024-10-09 | US_ITS ---
Ultrasound ABDOMINAL ULTRASOUND Ordering provider: Yg Joseph MD History: . distended abdomen . Comparison: None. FINDINGS/impression: No fluid seen in the abdomen. Reviewed, dictated and finalized at location A. ATIONS RESEARCH ENGINEER
--- NOTE | ~2024-10-09 | XR_ITS ---
EXAMINATION: XR hip RT 2V w AP pelvis DATE: 10/11/2024 16:19 INDICATION: Fall. TECHNIQUE: An anteroposterior view of the pelvis and 2 views of right hip were obtained. COMPARISON: Pelvis and right hip radiograph 01/17/2024 FINDINGS: There is an old fracture of left femoral neck with nonunion. Right hip demonstrates mild os teoarthritis. There is mild lumbar spondylosis. IMPRESSION: 1. Mild right hip osteoarthritis. 2. 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 Reviewed, dictated and finalized at location A. EATIONAL RESORT MANAGER
--- NOTE | ~2024-10-09 | CT_ITS ---
CT brain wo con Ordering provider: Yg Joseph MD History: 39 years Male with . fall . Comparison: 01 12 2024 Technique: CT of the head without contrast. Radiation reduction technique utilized. The dose-length product was 605.33 mGy-cm. FINDINGS: BRAIN PARENCHYMA AND CSF SPACES: No midline shift, mass effect or hemorrhage. The brain parenchyma a nd CSF spaces are otherwise normal. VISUALIZED PARANASAL SINUSES: Well aerated. MASTOIDS: Well aerated. BONES: The bones appear intact. SOFT TISSUES: Visualized nasopharynx is normal. Superficial soft tissues are normal. IMPRESSION: No acute intracranial findings. Reviewed, dictated and finalized at location A. UIT WALKER
--- NOTE | ~2024-10-09 | XR_ITS ---
XR chest 2V Ordering provider: Yg Joseph MD History: 39 years Male with . fall . Comparison: None. FINDINGS: MEDIASTINUM: The cardiac silhouette is slightly enlarged. LUNGS: No infiltrates, effusions or pneumothorax. Slightly pleural thickening is seen in the right and to a lesser extent left midzone. OTHER: No free air under the diaphragm. IMPRESSION: No acute cardiopulmonary pathology. Reviewed, dictated and finalized at location A. TROMECHANICAL EQUIPMENT TESTER
--- NOTE | 2024-10-09 17:59 | ED_ITS ---
HPI - Abdominal Pain General Chief Complaint: Abdominal Pain Stated Complaint: UPPER ABD PAIN FROM [place] Time Seen by Provider: 10/09/24 17:22 Source: patient Mode of arrival: ambulatory Limitations: no limitations History of Present Illness HPI narrative: This is a 39-year-old male that presents to the emergency department for epigastric pain. Ongoing for awhile . Reports worsening since yesterday. The pain is burning in nature. Reports coffee-ground emesis today. Denies fevers, diarrhea, dysuria. Related Data Home Medications ?Medication ?Instructions ?Recorded ?Confirmed ?Last Taken ?Type thiamine HCl (vitamin B1) 100 mg 100 mg PO DAILY 04/20/21 10/10/24 01/12/24 History tablet melatonin 3 mg tablet 3 mg PO HS 09/15/21 10/10/24 09/23/21 History ferrous sulfate 325 mg (65 mg 325 mg PO DAILY 11/12/21 10/10/24 01/12/24 History iron) tablet rifaximin 550 mg tablet (Xifaxan) 550 mg PO BID 11/12/21 10/10/24 01/12/24 History acetaminophen 500 mg tablet 1,000 mg PO Q6H PRN Pain 06/24/22 10/10/24 Unknown History (Acetaminophen Extra Strength) calcium carbonate 500 mg PO TID 06/24/22 10/10/24 01/12/24 History cholecalciferol (vitamin D3) 125 125 mcg PO DAILY 06/24/22 10/10/24 01/12/24 History mcg (5,000 unit) tablet potassium chloride 20 mEq 20 meq PO DAILY 06/24/22 10/10/24 01/12/24 History tablet,extended release furosemide 20 mg tablet (Lasix) 60 mg PO BID 12/14/22 10/10/24 01/12/24 History spironolactone 50 mg tablet 100 mg PO DAILY 12/14/22 10/10/24 01/12/24 History (Aldactone) diclofenac sodium 1 % topical gel 2 g topical BID PRN Pain 12/15/23 10/10/24 Unknown History magnesium oxide 400 mg PO HS 12/15/23 10/10/24 01/12/24 History propranolol 10 mg tablet 10 mg PO BID 12/15/23 10/10/24 01/12/24 History sucralfate 100 mg/mL oral 10 ml PO TID 12/15/23 10/10/24 01/12/24 History suspension baclofen 10 mg tablet 10 mg PO BID 01/12/24 10/10/24 01/12/24 History bupropion HCl 100 mg tablet 100 mg PO TID 01/12/24 10/10/24 01/12/24 History buspirone 5 mg tablet 15 mg PO TID Anxiety 01/12/24 10/10/24 01/12/24 History hydroxyzine HCl 25 mg tablet 25 mg PO TID Anxiety 01/12/24 10/10/24 01/12/24 History lactulose 10 gram/15 mL oral 30 ml PO TID 01/12/24 10/10/24 01/12/24 History solution ondansetron HCl 4 mg tablet 4 mg PO Q8H PRN nausea/vomiting 01/12/24 10/10/24 Unknown History prazosin 1 mg capsule 1 mg PO QID 01/12/24 10/10/24 01/12/24 History trazodone 50 mg tablet 50 mg PO QHS 01/12/24 10/10/24 01/11/24 History Lactobacillus acidophilus 1,000 mmu cells PO BID 08/25/24 10/10/24 Unknown History gabapentin 400 mg capsule 400 mg PO TID 08/25/24 10/10/24 Unknown History haloperidol 5 mg tablet 2.5 mg PO BID 08/25/24 10/10/24 Unknown History lidocaine 4 % topical patch 1 patch topical DAILY 08/25/24 10/10/24 Unknown History (Aspercreme (lidocaine)) menthol 5 % topical patch 1 patch topical DAILY 08/25/24 10/10/24 Unknown History (Biofreeze (menthol)) bophxoxz-zkgox-gkzwiww-diperod 1 ea topical QID 08/25/24 10/10/24 Unknown History topical ointment simethicone 80 mg chewable tablet 80 mg PO BID PRN Abdominal 08/25/24 10/10/24 Unknown History Discomfort aluminum-mag hydroxide-simethicone 30 ml PO ONCE PRN indigestion 10/10/24 10/10/24 Unknown History 200 mg-200 mg-20 mg/5 mL oral susp (Advanced Antacid-Antigas) calcium carbonate (Antacid 200 mg PO TID 10/10/24 10/10/24 Unknown History (calcium carbonate)) lidocaine HCl 4 % topical cream 1 applic topical DAILY 10/10/24 10/10/24 Unknown History (Aspercreme (lidocaine HCl)) lorazepam 1 mg tablet 1 mg PO Q6H 10/10/24 10/10/24 Unknown History Allergies Allergy/AdvReac Type Severity Reaction Status Date / Time peanut Allergy Severe Anaphylaxis Verified 10/10/24 00:10 shellfish derived Allergy Unknown Unknown Verified 10/10/24 00:10 mushroom AdvReac Unknown Verified 10/10/24 00:10 Review of Systems 2 Review of Systems: CONSTITUTIONAL: Denies fever GASTROINTESTINAL: Reports abdominal pain, nausea, vomiting. Denies diarrhea. GENITOURINARY: Denies dysuria or hematuria. All systems reviewed & are unremarkable except as noted in HPI and below PMFSH Past Medical History Medical History Alcohol abuse Alcoholic hepatitis Holt's esophagus with esophagitis Chronic anemia Cirrhosis Depression with anxiety DVT (deep venous thrombosis) Elevated white blood cell count, unspecified Esophageal varices Fracture of left hip GI bleed Secondary to bleeding varices. Hepatic failure, unspecified without coma Insomnia, unspecified Pulmonary embolism Tobacco abuse Surgical History Surgical History History of colonoscopy with polypectomy (05/25/22) Benign colon polyp, internal hemorrhoids. History of esophagogastroduodenoscopy (05/22/22) Nonbleeding esophageal varices, Holt esophagus without dysplasia, gastritis. Family History Family History Mother Liver disease Cirrhosis Grandparent Heart failure Heart attack Social History Social History Social History: Surrogate medical decision maker: Modesto Diaz, father. Code status: Full code. Smoking packs per day: 0.25 Smoking cigarettes per day: 5.0 Years smoked: 20 Smoking pack-years: 5.00 Smoking status: Current every day smoker Additional smoking assessment comments: Now smoking about 5 cigarettes a day while at a [facility] facility. T Alcohol intake: former Drinks per week: 120 Alcohol use details: Longstanding history of alcohol abuse. Substance use: current Substance use type: does not use Last use: 7 liters vodka week; patient states no alcohol x2 weeks Do You Feel Safe in your Home?: Yes Lack of Transportation: No Lack of Food: Never True Current Housing: I Have Housing Concerned About Future Housing: No Difficulty Paying Gas/Electric Bills: No Difficulty Paying for Meds: No Currently Unemployed: No Education: High School Diploma/GED Difficulty w/ Childcare or Family Care: No [facility] [facility] Additional living arrangements comments: Currently at [facility] Spiritual care concerns: No Exam 2 Narrative: GENERAL: Well-appearing, well-nourished, and in no acute distress. HEAD: Normocephalic, atraumatic. EYES: EOMI. ENT: Nares clear, no rhinorrhea or epistaxis. Mucous membranes dry CHEST: Clear to auscultation. No respiratory distress. No wheezes rales or rhonchi HEART: Regular rate and rhythm. No murmur heard. Normal peripheral pulses. ABDOMEN: Soft, nondistended, normal active bowel sounds. Tender to palpation in the epigastrium, and right upper quadrant, without guarding EXTREMITIES: Normal range of motion. No edema. SKIN: Warm, dry, no rash. NEURO: No focal deficits. Alert and oriented x3. PSYCH: Normal mood and affect RECTAL: hemoccult negative Course Course Emergency Course: patient updated on workup and recommendation for admission Consultations Consultation #1: Spoke with hospitalist about patient and workup who accepts admission Date: 10/09/24 Consultation #2: spoke with GI who will consult. Patient will remain NPO Date: 10/09/24 Vital Signs Vital signs: Vital Signs Temperature 97.2 F L 10/09/24 16:58 Pulse Rate 88 10/09/24 16:58 Respiratory Rate 18 10/09/24 16:58 Blood Pressure 131/74 10/09/24 16:58 Pulse Oximetry 100 10/09/24 16:58 Oxygen Delivery Room Air 10/09/24 16:58 Temperature 97.8 F 10/10/24 00:50 Pulse Rate 75 10/10/24 00:50 Respiratory Rate 16 10/10/24 00:50 Blood Pressure 111/73 10/10/24 00:50 Pulse Oximetry 100 10/10/24 00:50 Oxygen Delivery Room Air 10/09/24 16:58 MDM - Abdominal Pain MDM Narrative Medical decision making narrative: patient presents to the emergency department for hematemesis. He is afebrile and nontoxic appearing. His vitals are stable. Hemoglobin is normal. Metabolic panel with mild hypokalemia. Patient's potassium was replaced. Lipase is normal. Urine without evidence of infection. CT abdomen pelvis without acute findings. Patient is on anticoagulation. Will be admitted for further observation. Spoke with hospitalist about patient and workup who accepts admission. Spoke with GI who will consult. Patient will remain NPO Differential Diagnosis Differential diagnosis: Likely gastroenteritis, pancreatitis and other (GERD, gastritis, PUD, esophagitis, esophageal varices) Lab Data Attestation: I reviewed the patient's lab results. 10/09/24 23:13 10/09/24 18:33 Labs: Lab Results 10/09/24 10/09/24 10/09/24 Range/Units 18:33 18:40 20:09 WBC 6.6 (4.5-10.0) K/mm3 RBC 4.46 L (4.6-6.20) M/mm3 Hgb 14.9 (14.0-18.0) g/dL Hct 42.1 (42.0-52.0) % MCV 94.4 (80-100) fl MCH 33.4 (26-34) pg MCHC 35.4 (32-36) g/dl RDW 13.4 (11.5-14.5) % Plt Count 169 (150-375) k/mm3 MPV 10.3 (7.4-10.4) fl Immature Gran % (Auto) 0.6 H (0-0.5) % Neut % (Auto) 53.9 (45.5-73.1) % Lymph % (Auto) 30.7 (18.3-44.2) % Carbon % (Auto) 12.2 H (2.6-8.5) % Eos % (Auto) 1.8 (0-4.4) % Baso % (Auto) 0.8 (0.2-1.2) % Lymph # (Auto) 2.01 (0.9-3.2) K/mm3 Carbon # (Auto) 0.8 H (0.1-0.6) K/mm3 Eos # (Auto) 0.1 (0-0.3) K/mm3 Baso # (Auto) 0.1 (0.0-0.1) K/mm3 Abs Immat Gran (auto) 0.04 H (0.00-0.031) K/mm3 Absolute Neuts (auto) 3.5 (1.3-6.7) K/mm3 Absolute Nucleated RBC 0.000 (0.0-0.012) K/mm3 Nucleated RBC % 0.0 (0.0-0.2) % PT 14.9 H (11.1-14.7) Seconds INR 1.1 APTT 30.1 (22.3-36.8) Seconds Sodium 134 L (137-145) mmol/L Potassium 3.1 L (3.4-5.0) mmol/L Chloride 96 L (98-107) mmol/L Carbon Dioxide 30 (22-30) mmol/L Anion Gap 8 (4-12) mmol/L BUN 7 L (9-20) mg/dL Creatinine 0.70 (0.7-1.3) mg/dL Estim Creat Clear Calc 135 ml/min Estimated GFR > 60 (59 - ) Glucose 86 (65-110) mg/dL Calcium 9.0 (8.4-10.2) mg/dL Magnesium 1.8 (1.6-2.3) mg/dL Total Bilirubin 0.6 (0.2-1.3) mg/dL AST 33 (17-59) U/L ALT 25 (6-50) U/L Alkaline Phosphatase 106 (38-126) U/L Total Protein 8.0 (6.3-8.2) g/dL Albumin 4.2 (3.5-5.1) g/dL Lipase 146 (23-300) U/L Urine Color Yellow (Yellow) Urine Appearance Clear (Clear) Urine pH 5.5 (5.0-9.0) Ur Specific [place] 1.027 (1.001-1.035) Urine Protein Negative (Negative) mg/dL Urine Glucose (UA) Negative (Negative) mg/dL Urine Ketones Negative (Negative) mg/dL Ur Blood (Man) Negative (Negative) Urine Nitrate Negative (Negative) Urine Bilirubin Negative (Negative) Urine Urobilinogen 0.2 (<2.0) mg/dL Leukocyte Esterase Rfl Negative (Negative) DANIE/UL Imaging Data Radiologist's impression: ITS Impressions Abdomen/Pelvis CT 10/09/24 20:00 IMPRESSION: 1. Cirrhosis of the liver with portal venous hypertension. 2. Umbilical hernia containing fat. Critical Care Time Critical Care Time Critical Care Time: No Discharge Plan Discharge Clinical Impression: Hypokalemia Hematemesis Qualifiers: Nausea presence: with nausea Qualified Code(s): K92.0 - Hematemesis Patient Disposition: Still a Patient Condition: Stable
[2024-10-09] MEDS: PANTOPRAZOLE SODIUM IV 40 MG VIAL 80 MG IV PUSH (18:12)
[2024-10-09] MEDS: ONDANSETRON INJ 4 MG/2 ML VIAL IV PUSH (18:12)
[2024-10-09 18:47] LABS: Basophils Absolute Auto 0.1 K/mm3 (0.0-0.1); Basophils Percent Auto 0.8 % (0.2-1.2); Eosinophils Absolute Auto 0.1 K/mm3 (0-0.3); Eosinophils Percent Auto 1.8 % (0-4.4); Hematocrit 42.1 % (42.0-52.0); Hemoglobin 14.9 g/dL (14.0-18.0); Immature Granulocyte Absolute 0.04 K/mm3 (0.00-0.031); Immature Granulocyte Percent A 0.6 % (0-0.5); Lymphocytes Absolute Auto 2.01 K/mm3 (0.9-3.2); Lymphocytes Percent Auto 30.7 % (18.3-44.2); Mean Corpuscular HGB Conc 35.4 g/dl (32-36); Mean Corpuscular Hemoglobin 33.4 pg (26-34); Mean Corpuscular Volume 94.4 fl (80-100); Mean Platelet Volume 10.3 fl (7.4-10.4); Monocytes Absolute Auto 0.8 K/mm3 (0.1-0.6); Monocytes Percent Auto 12.2 % (2.6-8.5); Neutrophils Absolute Auto 3.5 K/mm3 (1.3-6.7); Neutrophils Percent Auto 53.9 % (45.5-73.1); Platelet Count Result 169 k/mm3 (150-375); Red Blood Count 4.46 M/mm3 (4.6-6.20); Red Cell Distribution Width 13.4 % (11.5-14.5); White Blood Count 6.6 K/mm3 (4.5-10.0)
--- NOTE | 2024-10-09 18:47 | PC.NURSE ---
patient given a urinal to provide a urine sample. pt agrees to call out once he is able to provide a sample.
[2024-10-09 18:58] LABS: Alanine Aminotransferase 25 U/L (6-50); Albumin Level 4.2 g/dL (3.5-5.1); Alkaline Phosphatase 106 U/L (38-126); Anion Gap 8 mmol/L (4-12); Aspartate Amino Transferase 33 U/L (17-59); Bilirubin,Total 0.6 mg/dL (0.2-1.3); Blood Urea Nitrogen 7 mg/dL (9-20); Carbon Dioxide 30 mmol/L (22-30); Chloride 96 mmol/L (98-107); Estimated CRCL calculation 135 ml/min; Estimated Glomerular Filt Rate > 60; Glucose 86 mg/dL (65-110); Lipase 146 U/L (23-300); Potassium 3.1 mmol/L (3.4-5.0); Sodium 134 mmol/L (137-145)
[2024-10-09 19:03] LABS: INR 1.1; Partial Thromboplastin Time 30.1 Seconds (22.3-36.8); Prothrombin Time 14.9 Seconds (11.1-14.7)
[2024-10-09 19:22] LABS: Magnesium 1.8 mg/dL (1.6-2.3)
[2024-10-09 20:36] LABS: Add Urine Microscopic? NO; Appearance Urine Clear (Clear); Bilirubin Urine Negative (Negative); Blood Urine Negative (Negative); Color Urine Yellow (Yellow); Glucose Urine UA Negative (Negative); Ketones Urine Negative (Negative); Leukocyte Esterase Ur Negative LEU/UL (Negative); Nitrate Urine Negative (Negative); Protein Urine Negative (Negative); Specific Grav Ur 1.027 (1.001-1.035); Urobilinogen Urine 0.2 mg/dL (<2.0); pH Urine 5.5 (5.0-9.0)
[2024-10-09] MEDS: POTASSIUM CHLORIDE INJ 40 MEQ in SODIUM CHLORIDE 0.9% IV 500 ML 130 MEQ IVPB (21:41)
--- NOTE | 2024-10-09 22:05 | P.HP_ITS ---
H&P: HPI History of Present Illness Date/Time: 10/09/24 22:05 Chief Complaint: coffee-ground emesis Narrative: This is a 39-year-old male with past medical history significant for hepatic cirrhosis, alcohol dependence, portal hypertension, pulmonary embolism, thrombocytopenia, hip fracture of the left leg chronic, chronic anemia, esophageal varices. patient is a skilled nursing resident. Comes to the emergency room after having coffee-ground emesis episode denies bright red blood per rectum or melena. patient has been in his usual state of health up until today. Preliminary workup was significant for hemoglobin of 14 hematocrit 42. Patient has been admitted for further evaluation management and treatment. EXAMINATION: CT abdomen pelvis w con DATE: 10/09/2024 19:58 INDICATION: Epigastric abdominal pain. Right upper quadrant abdominal pain. TECHNIQUE: Computed tomography (CT) of the abdomen and pelvis was performed with 100 mL Omnipaque 350 intravenous contrast. Automated exposure control and iterative reconstruction technique were employed. The dose-length product was 1176.18 mGy-cm. COMPARISON: CT abdomen and pelvis 04/23/2024 FINDINGS: The visualized portions of the lung bases demonstrate mild atelectasis. No pleural effusion. The heart size is normal. No pericardial effusion. There is bilateral gynecomastia. Paraesophageal varices are noted. The liver demonstrates steatosis and surface nodularity, consistent with cirrhosis. The spleen is normal in size. There is a periumbilical portacaval shunt. The gallbladder, pancreas, adrenal glands, and kidneys are normal. There is pr ominent fat in the inguinal canals that may be hernias. The appendix is normal. There are no dilated loops of bowel. There are no pathologically enlarged lymph nodes. There is no free intraperitoneal fluid. There is an umbilical hernia containing fat. There is an old fracture of left femoral neck with nonunion. There is mild thoracic and lumbar spondylosis. IMPRESSION: 1. Cirrhosis of the liver with portal venous hypertension. 2. Umbilical hernia containing fat. [facility] Past Medical History Medical History Alcohol abuse Alcoholic hepatitis Holt's esophagus with esophagitis Chronic anemia Cirrhosis Depression with anxiety DVT (deep venous thrombosis) Elevated white blood cell count, unspecified Esophageal varices Fracture of left hip GI bleed Secondary to bleeding varices. Hepatic failure, unspecified without coma Insomnia, unspecified Pulmonary embolism Tobacco abuse Surgical History Surgical History History of colonoscopy with polypectomy (05/25/22) Benign colon polyp, internal hemorrhoids. History of esophagogastroduodenoscopy (05/22/22) Nonbleeding esophageal varices, Holt esophagus without dysplasia, gastritis. Family History Family History Mother Liver disease Cirrhosis Grandparent Heart failure Heart attack Social History Social History Social History: Surrogate medical decision maker: Modesto Diaz, father. Code status: Full code. Smoking packs per day: 0.25 Smoking cigarettes per day: 5.0 Years smoked: 20 Smoking pack-years: 5.00 Smoking status: Current every day smoker Additional smoking assessment comments: Now smoking about 5 cigarettes a day while at a care home facility. T Alcohol intake: former Drinks per week: 120 Alcohol use details: Longstanding history of alcohol abuse. Substance use: current Substance use type: does not use Last use: 7 liters vodka week; patient states no alcohol x2 weeks Do You Feel Safe in your Home?: Yes Lack of Transportation: No Lack of Food: Never True Current Housing: I Have Housing Concerned About Future Housing: No Difficulty Paying Gas/Electric Bills: No Difficulty Paying for Meds: No Currently Unemployed: No Education: High School Diploma/GED Difficulty w/ Childcare or Family Care: No Living arrangements: skilled nursing Additional living arrangements comments: Currently at [facility] Spiritual care concerns: No Meds Home Medications and Allergies Home Medications ?Medication ?Instructions ?Recorded ?Confirmed ?Type folic acid 1 mg tablet 1 mg PO DAILY #30 tabs 04/11/21 10/10/24 Rx thiamine HCl (vitamin B1) 100 mg 100 mg PO DAILY 04/20/21 10/10/24 History tablet melatonin 3 mg tablet 3 mg PO HS 09/15/21 10/10/24 History ferrous sulfate 325 mg (65 mg 325 mg PO DAILY 11/12/21 10/10/24 History iron) tablet rifaximin 550 mg tablet (Xifaxan) 550 mg PO BID 11/12/21 10/10/24 History acetaminophen 500 mg tablet 1,000 mg PO Q6H PRN Pain 06/24/22 10/10/24 History (Acetaminophen Extra Strength) calcium carbonate 500 mg PO TID 06/24/22 10/10/24 History cholecalciferol (vitamin D3) 125 125 mcg PO DAILY 06/24/22 10/10/24 History mcg (5,000 unit) tablet potassium chloride 20 mEq 20 meq PO DAILY 06/24/22 10/10/24 History tablet,extended release furosemide 20 mg tablet (Lasix) 60 mg PO BID 12/14/22 10/10/24 History spironolactone 50 mg tablet 100 mg PO DAILY 12/14/22 10/10/24 History (Aldactone) diclofenac sodium 1 % topical gel 2 g topical BID PRN Pain 12/15/23 10/10/24 History magnesium oxide 400 mg PO HS 12/15/23 10/10/24 History propranolol 10 mg tablet 10 mg PO BID 12/15/23 10/10/24 History sucralfate 100 mg/mL oral 10 ml PO TID 12/15/23 10/10/24 History suspension baclofen 10 mg tablet 10 mg PO BID 01/12/24 10/10/24 History bupropion HCl 100 mg tablet 100 mg PO TID 01/12/24 10/10/24 History buspirone 5 mg tablet 15 mg PO TID Anxiety 01/12/24 10/10/24 History hydroxyzine HCl 25 mg tablet 25 mg PO TID Anxiety 01/12/24 10/10/24 History lactulose 10 gram/15 mL oral 30 ml PO TID 01/12/24 10/10/24 History solution ondansetron HCl 4 mg tablet 4 mg PO Q8H PRN nausea/vomiting 01/12/24 10/10/24 History prazosin 1 mg capsule 1 mg PO QID 01/12/24 10/10/24 History trazodone 50 mg tablet 50 mg PO QHS 01/12/24 10/10/24 History Lactobacillus acidophilus 1,000 mmu cells PO BID 08/25/24 10/10/24 History apixaban 5 mg (74 tabs) tablets in See Rx Instructions PO .COMPLEX 08/25/24 10/10/24 Rx a dose pack (Eliquis DVT-PE Treat #74 ea 30D Start) gabapentin 400 mg capsule 400 mg PO TID 08/25/24 10/10/24 History haloperidol 5 mg tablet 2.5 mg PO BID 08/25/24 10/10/24 History lidocaine 4 % topical patch 1 patch topical DAILY 08/25/24 10/10/24 History (Aspercreme (lidocaine)) menthol 5 % topical patch 1 patch topical DAILY 08/25/24 10/10/24 History (Biofreeze (menthol)) wqznnips-yjsbc-rjfuvxr-diperod 1 ea topical QID 08/25/24 10/10/24 History topical ointment simethicone 80 mg chewable tablet 80 mg PO BID PRN Abdominal 08/25/24 10/10/24 H istory Discomfort hydrocodone 10 mg-acetaminophen 1 tablet PO Q6H pain #5 tabs 08/31/24 10/10/24 Rx 325 mg tablet acetaminophen 650 mg 650 mg PO Q8H PRN pain #20 tabs 09/05/24 10/10/24 Rx tablet,extended release apixaban 5 mg tablet 5 mg PO BID #30 tabs 09/05/24 10/10/24 Rx aluminum-mag hydroxide-simethicone 30 ml PO ONCE PRN indigestion 10/10/24 10/10/24 History 200 mg-200 mg-20 mg/5 mL oral susp (Advanced Antacid-Antigas) calcium carbonate (Antacid 200 mg PO TID 10/10/24 10/10/24 History (calcium carbonate)) lidocaine HCl 4 % topical cream 1 applic topical DAILY 10/10/24 10/10/24 History (Aspercreme (lidocaine HCl)) lorazepam 1 mg tablet 1 mg PO Q6H 10/10/24 10/10/24 History Allergies Allergy/AdvReac Type Severity Reaction Status Date / Time peanut Allergy Severe Anaphylaxis Verified 10/10/24 00:10 shellfish derived Allergy Unknown Unknown Verified 10/10/24 00:10 mushroom AdvReac Unknown Verified 10/10/24 00:10 Vital Signs Vital Signs - 24 hr 10/09/24 16:58 10/09/24 18:41 10/09/24 18:44 Temperature 97.2 F L Pulse Rate 88 82 Respiratory Rate 18 18 Blood Pressure 131/74 113/88 Pulse Oximetry 100 98 98 Oxygen Delivery Room Air 12/16/24 18:44 10/09/24 18:45 10/09/24 18:46 Temperature Pulse Rate 82 82 82 Respiratory Rate 17 13 16 Blood Pressure 113/88 98/68 L Pulse Oximetry 98 98 98 Oxygen Delivery 10/09/24 19:00 10/09/24 19:01 10/09/24 19:15 Temperature Pulse Rate 84 85 86 Respiratory Rate 13 13 13 Blood Pressure 129/82 Pulse Oximetry 98 98 Oxygen Delivery 10/09/24 19:16 10/09/24 19:30 10/09/24 19:31 Temperature Pulse Rate 86 86 87 Respiratory Rate 13 13 14 Blood Pressure 118/76 121/81 Pulse Oximetry Oxygen Delivery 10/09/24 20:00 10/09/24 21:43 Temperature Pulse Rate 84 Respiratory Rate 20 19 Blood Pressure 100/87 Pulse Oximetry 100 96 Oxygen Delivery Exam Narrative: Patient is laying in a stretcher Const: General: comfortable, no acute distress, well developed, alert, awake, ill appearing chronically and edematous Nutritional Appearance: edematous Orientation/consciousness: patient oriented x3 Other: generalized pallor HENMT: Head: normal to inspection, normocephalic and atraumatic Ears: hearing grossly normal bilaterally Face/Nose/Sinus: normal facial exam Face and sinus: normal facial exam Eyes: General: appearance normal, both eyes and all related structures Pupils: Equal, round and reactive pupils present EOM: EOMs intact bilaterally Neck: Neck: full ROM, no lymphadenopathy and no JVD Thyroid: thyroid normal Lymphatic: no lymphadenopathy noted Resp: Effort & Inspection: normal respiratory effort and able to speak in complete sentences Auscultation: clear to auscultation bilaterally Cardio: Jugular venous distension: no JVD Rate: regular rate Rhythm: regular rhythm Heart sounds: S1 normal heart sound present and S2 normal heart sound present GI: Inspection: distended, Pannus present, obesity, caput medusae present and 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) GI Palp: Yes Soft to palpation and Yes No hepatosplenomegaly present : General: Yes deferred Skin: Rashes: no rashes Wounds: no wounds Neuro: General: patient oriented x3 and CN's II-XI intact bilaterally Cranial nerves: Yes CN's II-XII intact bilaterally and Yes Equal, round and reactive pupils present Cognition (Neuro): normal cognition Speech: normal speech Gait exam (Neuro): Unable to assess gait ( patient with chronic hip fracture unable to bear weight) Motor exam (neuro): 5/5 motor strength present throughout Extrem: General: normal to inspection, full ROM, no joint enlargement and no pedal edema H&P: Results Labs Labs: Short CBC 10/09/24 Range/Units 18:33 WBC 6.6 (4.5-10.0) K/mm3 Hgb 14.9 (14.0-18.0) g/dL Hct 42.1 (42.0-52.0) % Plt Count 169 (150-375) k/mm3 BMP 10/09/24 18:33 Sodium 134 L Potassium 3.1 L Chloride 96 L Carbon Dioxide 30 BUN 7 L Creatinine 0.70 Glucose 86 Calcium 9.0 Liver Function 10/09/24 Range/Units 18:33 Total Bilirubin 0.6 (0.2-1.3) mg/dL AST 33 (17-59) U/L ALT 25 (6-50) U/L Alkaline Phosphatase 106 (38-126) U/L Albumin 4.2 (3.5-5.1) g/dL Urine 10/09/24 Range/Units 20:09 Urine Color Yellow (Yellow) Urine Appearance Clear (Clear) Urine pH 5.5 (5.0-9.0) Ur Specific [place] 1.027 (1.001-1.035) Urine Protein Negative (Negative) mg/dL Urine Glucose (UA) Negative (Negative) mg/dL Assessment and Plan Assessment and plan (1) Hematemesis: Qualifiers: Nausea presence: with nausea Qualified Code(s): K92.0 - Hematemesis Code(s): K92.0 - Hematemesis Status: Acute Assessment and Plan: placed in observation in IMU holding apixaban consult to GI continue to monitor started on PPI (2) Coffee ground emesis: Code(s): K92.0 - Hematemesis Status: Acute Assessment and Plan: received pantoprazole in the emergency room continue to monitor (3) Hypokalemia: Code(s): E87.6 - Hypokalemia Status: Acute Assessment and Plan: replace as needed holding spironolactone( potassium sparing) holding Lasix (4) Alcohol use disorder: Code(s): F10.90 - Alcohol use, unspecified, uncomplicated Status: Acute Assessment and Plan: CIWA as needed (5) Deep vein thrombosis (DVT) of right lower extremity: Qualifiers: Affected thrombotic vein of extremity: unspecified vein of extremity Chronicity: acute Qualified Code(s): I82.401 - Acute embolism and thrombosis of unspecified deep veins of right lower extremity Code(s): I82.401 - Acute embolism and thrombosis of unspecified deep veins of right lower extremity Status: Acute Assessment and Plan: holding apixaban (6) Pulmonary embolism: Code(s): I26.99 - Other pulmonary embolism without acute cor pulmonale Status: Acute Assessment and Plan: holding apixaban (7) Fracture of left hip: Code(s): S72.002A - Fracture of unspecified part of neck of left femur, initial encounter for closed fracture Status: Chronic Assessment and Plan: supportive care (8) Portal hypertension: Code(s): K76.6 - Portal hypertension Status: Acute Assessment and Plan: continue propranolol (9) Thrombocytopenia: Code(s): D69.6 - Thrombocytopenia, unspecified Status: Acute Assessment and Plan: continue to monitor (10) Ascites: Code(s): R18.8 - Other ascites Status: Acute Assessment and Plan: unchanged Hospitalist MIPS Advance Care Plan I have confirmed that the patient's Advanced Care Plan is present, code status is documented, or surrogate decision maker is listed in patient medical record.: Yes Medication Reconciliation I have utilized all available resources to obtain, update and review the patients current medications (includes all prescriptions, OTC, herbals, cannabis, and nutritional supplements).: Yes
[2024-10-09 23:25] LABS: Hemoglobin 14.2 g/dL (14.0-18.0)
[2024-10-10] VITALS (20 sets, daily range): BP systolic 88–122; BP diastolic 44–80; PULSE 73–87; RESP 14–23; TEMP 36–36.8; O2SAT 94–100; BMI 33.8
--- NOTE | 2024-10-10 00:38 | PC.NURSE ---
Admission report to ALFREDO Alvarez.
[2024-10-10] MEDS: LORazepam (*CRX) 1 MG TABLET PO ×4 (02:07→18:40)
[2024-10-10] MEDS: HYDROcodone/acetaminophen (*CRX) 10-325 MG TABLET 1 TAB PO ×4 (02:07→21:21)
--- NOTE | 2024-10-10 02:31 | ADMGEN ---
This patient, Lukas Diaz, was admitted to IMU Room 202-01. Patient/family oriented to hospital policies and general routines including ID bracelet, bed and alarms, visiting hours, pain management, procedures, bathroom and other care routines, personal items, smoking policy, room service/diet, and visiting hours. Information on how to activate the Rapid Response Team has been discussed. Patient/Family are encouraged to report perceived risks to care and to ask questions if they do not understand what they are told or what they should do.
[2024-10-10 04:45] LABS: Hematocrit 39.1 % (42.0-52.0); Hemoglobin 13.5 g/dL (14.0-18.0)
--- NOTE | 2024-10-10 08:47 | P.CONGI_ITS ---
Assessment and Plan Assessment and plan (1) Coffee ground emesis: Code(s): K92.0 - Hematemesis Status: Acute Assessment and Plan: known history of varices however last time did not require banding and also esophagitis with long segment Holt's recommend to continue halfway ppi twice daily, added carafate will do egd now (2) Holt's esophagus with esophagitis: Code(s): K22.70 - Holt's esophagus without dysplasia; K20.90 - Esophagitis, unspecified without bleeding Status: Chronic Assessment and Plan: ppi bid (3) Abdominal pain: Qualifiers: Abdominal location: right upper quadrant Qualified Code(s): R10.11 - Right upper quadrant pain Code(s): R10.9 - Unspecified abdominal pain Status: Acute Assessment and Plan: will assess with egd CT scan reviewed, cirrhosis without acute changes (4) Cirrhosis: Qualifiers: Ascites presence: without ascites Hepatic cirrhosis type: alcoholic cirrhosis Qualified Code(s): K70.30 - Alcoholic cirrhosis of liver without ascites Code(s): K74.60 - Unspecified cirrhosis of liver Status: Acute Assessment and Plan: he is an alcoholic (5) Alcohol dependence: Code(s): F10.20 - Alcohol dependence, uncomplicated Status: Acute (6) 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 He resides at a [facility]- wheelchair bound due to a chronic left hip fracture with nonunion. Last EGD 12/2023 when had n/v, no varices, noted 6 cm Holt's esophagus (no bx because previous history of varices). Last hospitalization 08/2024 with dvt now on eliquis and also alcohol withdrawal (per notes a family member was bringing alcohol)- patient claims that has not been drinking for a while . Here with epigastric discomfort and burning sensation yesterday, also noted coffee ground emesis. Hgb 14, normal bun and creatinine, also liver enzymes. CT scan reviewed, Cirrhosis of the liver with portal venous hypertension. Umbilical hernia containing fat. Review of Systems 2 Constitutional: Constitutional: Reports weakness Eyes: Eyes: Denies blurry vision ENT: Reports Normal hearing present Cardiovascular: Cardiovascular: Denies chest pain Respiratory: Respiratory: Denies cough Gastrointestinal: Gastrointestinal: Reports nausea, Reports vomiting and Reports hematemesis Genitourinary: Genitourinary: Denies dysuria Musculoskeletal: Musculoskeletal: Denies neck pain Integumentary/Breasts: Skin/Breast: Denies dry skin Neurologic: Denies Abnormal speech present Psychiatric: Psychiatric: Denies confusion [facility] Past Medical History Medical History 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 Esophageal varices Depression with anxiety Fracture of left hip Cirrhosis Holt's esophagus with esophagitis Tobacco abuse Alcoholic hepatitis Alcohol abuse Surgical History Surgical History History of colonoscopy with polypectomy (05/25/22) Benign colon polyp, internal hemorrhoids. History of esophagogastroduodenoscopy (05/22/22) Nonbleeding esophageal varices, Holt esophagus without dysplasia, gastritis. Family History Family History Mother Liver disease Cirrhosis Grandparent Heart failure Heart attack Social History Social History Social History: Surrogate medical decision maker: Modesto Diaz, father. Code status: Full code. Smoking packs per day: 0.25 Smoking cigarettes per day: 5.0 Years smoked: 20 Smoking pack-years: 5.00 Smoking status: Current every day smoker Additional smoking assessment comments: Now smoking about 5 cigarettes a day while at a assisted facility. T Alcohol intake: former Drinks per week: 120 Alcohol use details: Longstanding history of alcohol abuse. Substance use: current Substance use type: does not use Last use: 7 liters vodka week; patient states no alcohol x2 weeks Do You Feel Safe in your Home?: Yes Lack of Transportation: No Lack of Food: Never True Current Housing: I Have Housing Concerned About Future Housing: No Difficulty Paying Gas/Electric Bills: No Difficulty Paying for Meds: No Currently Unemployed: No Education: High School Diploma/GED Difficulty w/ Childcare or Family Care: No Living arrangements: [facility] Additional living arrangements comments: Currently at [facility] Spiritual care concerns: No Meds Home Medications and Allergies Home Medications ?Medication ?Instructions ?Recorded ?Confirmed ?Type folic acid 1 mg tablet 1 mg PO DAILY #30 tabs 04/11/21 10/10/24 Rx thiamine HCl (vitamin B1) 100 mg 100 mg PO DAILY 04/20/21 10/10/24 History tablet melatonin 3 mg tablet 3 mg PO HS 09/15/21 10/10/24 History ferrous sulfate 325 mg (65 mg 325 mg PO DAILY 11/12/21 10/10/24 History iron) tablet rifaximin 550 mg tablet (Xifaxan) 550 mg PO BID 11/12/21 10/10/24 History acetaminophen 500 mg tablet 1,000 mg PO Q6H PRN Pain 06/24/22 10/10/24 History (Acetaminophen Extra Strength) calcium carbonate 500 mg PO TID 06/24/22 10/10/24 History cholecalciferol (vitamin D3) 125 125 mcg PO DAILY 06/24/22 10/10/24 History mcg (5,000 unit) tablet potassium chloride 20 mEq 20 meq PO DAILY 06/24/22 10/10/24 History tablet,extended release furosemide 20 mg tablet (Lasix) 60 mg PO BID 12/14/22 10/10/24 History spironolactone 50 mg tablet 100 mg PO DAILY 12/14/22 10/10/24 History (Aldactone) diclofenac sodium 1 % topical gel 2 g topical BID PRN Pain 12/15/23 10/10/24 History magnesium oxide 400 mg PO HS 12/15/23 10/10/24 History propranolol 10 mg tablet 10 mg PO BID 12/15/23 10/10/24 History sucralfate 100 mg/mL oral 10 ml PO TID 12/15/23 10/10/24 History suspension baclofen 10 mg tablet 10 mg PO BID 01/12/24 10/10/24 History bupropion HCl 100 mg tablet 100 mg PO TID 01/12/24 10/10/24 History buspirone 5 mg tablet 15 mg PO TID Anxiety 01/12/24 10/10/24 History hydroxyzine HCl 25 mg tablet 25 mg PO TID Anxiety 01/12/24 10/10/24 History lactulose 10 gram/15 mL oral 30 ml PO TID 01/12/24 10/10/24 History solution ondansetron HCl 4 mg tablet 4 mg PO Q8H PRN nausea/vomiting 01/12/24 10/10/24 History prazosin 1 mg capsule 1 mg PO QID 01/12/24 10/10/24 History trazodone 50 mg tablet 50 mg PO QHS 01/12/24 10/10/24 History Lactobacillus acidophilus 1,000 mmu cells PO BID 08/25/24 10/10/24 History apixaban 5 mg (74 tabs) tablets in See Rx Instructions PO .COMPLEX 08/25/24 10/10/24 Rx a dose pack (Bureaux A Partager DVT-PE Treat #74 ea 30D Start) gabapentin 400 mg capsule 400 mg PO TID 08/25/24 10/10/24 History haloperidol 5 mg tablet 2.5 mg PO BID 08/25/24 10/10/24 History lidocaine 4 % topical patch 1 patch topical DAILY 08/25/24 10/10/24 History (Aspercreme (lidocaine)) menthol 5 % topical patch 1 patch topical DAILY 08/25/24 10/10/24 History (Biofreeze (menthol)) [id number]-[id number]-diperod 1 ea topical QID 08/25/24 10/10/24 History topical ointment simethicone 80 mg chewable tablet 80 mg PO BID PRN Abdominal 08/25/24 10/10/24 History Discomfort hydrocodone 10 mg-acetaminophen 1 tablet PO Q6H pain #5 tabs 08/31/24 10/10/24 Rx 325 mg tablet acetaminophen 650 mg 650 mg PO Q8H PRN pain #20 tabs 09/05/24 10/10/24 Rx tablet,extended release apixaban 5 mg tablet 5 mg PO BID #30 tabs 09/05/24 10/10/24 Rx aluminum-mag hydroxide-simethicone 30 ml PO ONCE PRN indigestion 10/10/24 10/10/24 History 200 mg-200 mg-20 mg/5 mL oral susp (Advanced Antacid-Antigas) calcium carbonate (Antacid 200 mg PO TID 10/10/24 10/10/24 History (calcium carbonate)) lidocaine HCl 4 % topical cream 1 applic topical DAILY 10/10/24 10/10/24 History (Aspercreme (lidocaine HCl)) lorazepam 1 mg tablet 1 mg PO Q6H 10/10/24 10/10/24 History Allergies Allergy/AdvReac Type Severity Reaction Status Date / Time peanut Allergy Severe Anaphylaxis Verified 10/10/24 08:42 shellfish derived Allergy Unknown Unknown Verified 10/10/24 08:42 mushroom AdvReac Unknown Verified 10/10/24 08:42 Vital Signs Vital Signs - 24 hr 10/09/24 16:58 10/09/24 18:41 10/09/24 18:44 Temperature 97.2 F L Pulse Rate 88 82 Respiratory Rate 18 18 Blood Pressure 131/74 113/88 Pulse Oximetry 100 98 98 Oxygen Delivery Room Air 10/09/24 18:44 10/09/24 18:45 10/09/24 18:46 Temperature Pulse Rate 82 82 82 Respiratory Rate 17 13 16 Blood Pressure 113/88 98/68 L Pulse Oximetry 98 98 98 Oxygen Delivery 10/09/24 19:00 10/09/24 19:01 10/09/24 19:15 Temperature Pulse Rate 84 85 86 Respiratory Rate 13 13 13 Blood Pressure 129/82 Pulse Oximetry 98 98 Oxygen Delivery 10/09/24 19:16 10/09/24 19:30 10/09/24 19:31 Temperature Pulse Rate 86 86 87 Respiratory Rate 13 13 14 Blood Pressure 118/76 121/81 Pulse Oximetry Oxygen Delivery 10/09/24 20:00 10/09/24 21:43 10/10/24 00:12 Temperature Pulse Rate 84 82 Respiratory Rate 20 19 15 Blood Pressure 100/87 122/80 Pulse Oximetry 100 96 96 Oxygen Delivery 10/10/24 00:50 10/10/24 01:00 10/10/24 01:00 Temperature 97.8 F Pulse Rate 75 78 78 Respiratory Rate 16 16 Blood Pressure 111/73 Pulse Oximetry 100 100 Oxygen Delivery Room Air 10/10/24 02:00 10/10/24 04:00 10/10/24 04:00 Temperature Pulse Rate 84 82 81 Respiratory Rate 16 Blood Pressure Pulse Oximetry 97 Oxygen Delivery Room Air 10/10/24 04:02 10/10/24 05:35 10/10/24 07:50 Temperature 98.2 F 97.6 F Pulse Rate 81 80 75 Respiratory Rate 16 14 Blood Pressure 116/76 109/70 Pulse Oximetry 97 98 Oxygen Delivery Exam 2 Const: General: comfortable, no acute distress, well developed, alert, awake, ill appearing chronically and edematous Nutritional Appearance: edematous Orientation/consciousness: patient oriented x3 HENMT: Head: normal to inspection, normocephalic and atraumatic Ears: h earing grossly normal bilaterally Face/Nose/Sinus: normal facial exam Eyes: General: appearance normal, both eyes and all related structures Neck: Neck: full ROM Resp: Effort & Inspection: normal respiratory effort and able to speak in complete sentences Auscultation: clear to auscultation bilaterally Cardio: Jugular venous distension: no JVD Rate: regular rate Rhythm: r egular rhythm GI: Inspection: distended, obesity and 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) GI Palp: Yes Soft to palpation : General: Yes deferred Skin: Rashes: no rashes Neuro: General: patient oriented x3 and CN's II-XI intact bilaterally C ranial nerves: Yes CN's II-XII intact bilaterally and Yes Equal, round and reactive pupils present Cognition (Neuro): normal cognition Speech: normal speech Gait exam (Neuro): Unable to assess gait ( patient with chronic hip fracture unable to bear weight) Motor exam (neuro): 5/5 motor strength present throughout Extrem: General: normal to inspection Results Labs 10/10/24 04:15 10/09/24 18:33 Labs: Short CBC 10/09/24 10/09/24 10/10/24 Range/Units 18:33 23:13 04:15 WBC 6.6 (4.5-10.0) K/mm3 Hgb 14.9 14.2 13.5 L (14.0-18.0) g/dL Hct 42.1 40.0 L 39.1 L (42.0-52.0) % Plt Count 169 (150-375) k/mm3 [facility] 10/09/24 18:33 Sodium 134 L Potassium 3.1 L Chloride 96 L Carbon Dioxide 30 BUN 7 L Creatinine 0.70 Glucose 86 Calcium 9.0 Liver Function 10/09/24 Range/Units 18:33 Total Bilirubin 0.6 (0.2-1.3) mg/dL AST 33 (17-59) U/L ALT 25 (6-50) U/L Alkaline Phosphatase 106 (38-126) U/L Albumin 4.2 (3.5-5.1) g/dL Urine 10/09/24 Range/Units 20:09 Urine Color Yellow (Yellow) Urine Appearance Clear (Clear) Urine pH 5.5 (5.0-9.0) Ur Specific [place] 1.027 (1.001-1.035) Urine Protein Negative (Negative) mg/dL Urine Glucose (UA) Negative (Negative) mg/dL
--- NOTE | 2024-10-10 08:48 | WPDANESEPPF ---
Anes - Initial Pre Proc Eval Procedure: Operation Date: 10/10/24 13:00 Proposed Procedures p Esophagogastroduodenoscopy - Eric Oconnell MD Date/Time: 10/10/24 08:48 Surgeon: Manuel Dorsey MD Pre Op Diagnosis: GI bleed Patient Data Age: 39 Gender: M Height: 1.7 m Weight: 98 kg Last Vital Signs Temp 36.0 C L 10/10/24 08:45 Pulse 75 10/10/24 08:45 Resp 22 H 10/10/24 08:45 BP 105/65 10/10/24 08:45 Pulse Ox 97 10/10/24 08:45 O2 Del Method Room Air 10/10/24 08:45 Allergies Allergy/AdvReac Type Severity Reaction Status Date / Time peanut Allergy Severe Anaphylaxis Verified 10/10/24 08:42 shellfish derived Allergy Unknown Unknown Verified 10/10/24 08:42 mushroom AdvReac Unknown Verified 10/10/24 08:42 Home Medications ?Medication ?Instructions ?Recorded ?Confirmed ?Type folic acid 1 mg tablet 1 mg PO DAILY #30 tabs 04/11/21 10/10/24 Rx thiamine HCl (vitamin B1) 100 mg 100 mg PO DAILY 04/20/21 10/10/24 History tablet melatonin 3 mg tablet 3 mg PO HS 09/15/21 10/10/24 History ferrous sulfate 325 mg (65 mg 325 mg PO DAILY 11/12/21 10/10/24 History iron) tablet rifaximin 550 mg tablet (Xifaxan) 550 mg PO BID 11/12/21 10/10/24 History acetaminophen 500 mg tablet 1,000 mg PO Q6H PRN Pain 06/24/22 10/10/24 History (Acetaminophen Extra Strength) calcium carbonate 500 mg PO TID 06/24/22 10/10/24 History cholecalciferol (vitamin D3) 125 125 mcg PO DAILY 06/24/22 10/10/24 History mcg (5,000 unit) tablet potassium chloride 20 mEq 20 meq PO DAILY 06/24/22 10/10/24 History tablet,extended release furosemide 20 mg tablet (Lasix) 60 mg PO BID 12/14/22 10/10/24 History spironolactone 50 mg tablet 100 mg PO DAILY 12/14/22 10/10/24 History (Aldactone) diclofenac sodium 1 % topical gel 2 g topical BID PRN Pain 12/15/23 10/10/24 History magnesium oxide 400 mg PO HS 12/15/23 10/10/24 History propranolol 10 mg tablet 10 mg PO BID 12/15/23 10/10/24 History sucralfate 100 mg/mL oral 10 ml PO TID 12/15/23 10/10/24 History suspension baclofen 10 mg tablet 10 mg PO BID 01/12/24 10/10/24 History bupropion HCl 100 mg tablet 100 mg PO TID 01/12/24 10/10/24 History buspirone 5 mg tablet 15 mg PO TID Anxiety 01/12/24 10/10/24 History hydroxyzine HCl 25 mg tablet 25 mg PO TID Anxiety 01/12/24 10/10/24 History lactulose 10 gram/15 mL oral 30 ml PO TID 01/12/24 10/10/24 History solution ondansetron HCl 4 mg tablet 4 mg PO Q8H PRN nausea/vomiting 01/12/24 10/10/24 History prazosin 1 mg capsule 1 mg PO QID 01/12/24 10/10/24 History trazodone 50 mg tablet 50 mg PO QHS 01/12/24 10/10/24 History Lactobacillus acidophilus 1,000 mmu cells PO BID 08/25/24 10/10/24 History apixaban 5 mg (74 tabs) tablets in See Rx Instructions PO .COMPLEX 08/25/24 10/10/24 Rx a dose pack (GlucoTecTapCanvas DVT-PE Treat #74 ea 30D Start) gabapentin 400 mg capsule 400 mg PO TID 08/25/24 10/10/24 History haloperidol 5 mg tablet 2.5 mg PO BID 08/25/24 10/10/24 History lidocaine 4 % topical patch 1 patch topical DAILY 08/25/24 10/10/24 History (Aspercreme (lidocaine)) menthol 5 % topical patch 1 patch topical DAILY 08/25/24 10/10/24 History (Biofreeze (menthol)) dukkislf-acjik-orcplgl-diperod 1 ea topical QID 08/25/24 10/10/24 History topical ointment simethicone 80 mg chewable tablet 80 mg PO BID PRN Abdominal 08/25/24 10/10/24 History Discomfort hydrocodone 10 mg-acetaminophen 1 tablet PO Q6H pain #5 tabs 08/31/24 10/10/24 Rx 325 mg tablet acetaminophen 650 mg 650 mg PO Q8H PRN pain #20 tabs 09/05/24 10/10/24 Rx tablet,extended release apixaban 5 mg tablet 5 mg PO BID #30 tabs 09/05/24 10/10/24 Rx aluminum-mag hydroxide-simethicone 30 ml PO ONCE PRN indigestion 10/10/24 10/10/24 History 200 mg-200 mg-20 mg/5 mL oral susp (Advanced Antacid-Antigas) calcium carbonate (Antacid 200 mg PO TID 10/10/24 10/10/24 History (calcium carbonate)) lidocaine HCl 4 % topical cream 1 applic topical DAILY 10/10/24 10/10/24 History (Aspercreme (lidocaine HCl)) lorazepam 1 mg tablet 1 mg PO Q6H 10/10/24 10/10/24 History Laboratory Tests 10/09/24 10/09/24 10/09/24 18:33 18:40 20:09 WBC 6.6 K/mm3 (4.5-10.0) RBC 4.46 L M/mm3 (4.6-6.20) Hgb 14.9 g/dL (14.0-18.0) Hct 42.1 % (42.0-52.0) MCV 94.4 fl (80-100) MCH 33.4 pg (26-34) MCHC 35.4 g/dl (32-36) RDW 13.4 % (11.5-14.5) Plt Count 169 k/mm3 (150-375) MPV 10.3 fl (7.4-10.4) Immature Gran % (Auto) 0.6 H % (0-0.5) Neut % (Auto) 53.9 % (45.5-73.1) Lymph % (Auto) 30.7 % (18.3-44.2) [place] % (Auto) 12.2 H % (2.6-8.5) Eos % (Auto) 1.8 % (0-4.4) Baso % (Auto) 0.8 % (0.2-1.2) Lymph # (Auto) 2.01 K/mm3 (0.9-3.2) [place] # (Auto) 0.8 H K/mm3 (0.1-0.6) Eos # (Auto) 0.1 K/mm3 (0-0.3) Baso # (Auto) 0.1 K/mm3 (0.0-0.1) Abs Immat Gran (auto) 0.04 H K/mm3 (0.00-0.031) Absolute Neuts (auto) 3.5 K/mm3 (1.3-6.7) Absolute Nucleated RBC 0.000 K/mm3 (0.0-0.012) Nucleated RBC % 0.0 % (0.0-0.2) PT 14.9 H Seconds (11.1-14.7) INR 1.1 APTT 30.1 Seconds (22.3-36.8) Sodium 134 L mmol/L (137-145) Potassium 3.1 L mmol/L (3.4-5.0) Chloride 96 L mmol/L (98-107) Carbon Dioxide 30 mmol/L (22-30) Anion Gap 8 mmol/L (4-12) BUN 7 L mg/dL (9-20) Creatinine 0.70 mg/dL (0.7-1.3) Estim Creat Clear Calc 135 ml/min Estimated GFR > 60 (59 - ) Glucose 86 mg/dL (65-110) Calcium 9.0 mg/dL (8.4-10.2) Magnesium 1.8 mg/dL (1.6-2.3) Total Bilirubin 0.6 mg/dL (0.2-1.3) AST 33 U/L (17-59) ALT 25 U/L (6-50) Alkaline Phosphatase 106 U/L (38-126) Total Protein 8.0 g/dL (6.3-8.2) Albumin 4.2 g/dL (3.5-5.1) Lipase 146 U/L (23-300) Urine Color Yellow (Yellow) Urine Appearance Clear (Clear) Urine pH 5.5 (5.0-9.0) Ur Specific [place] 1.027 (1.001-1.035) Urine Protein Negative mg/dL (Negative) Urine Glucose (UA) Negative mg/dL (Negative) Urine Ketones Negative mg/dL (Negative) Ur Blood (Man) Negative (Negative) Urine Nitrate Negative (Negative) Urine Bilirubin Negative (Negative) Urine Urobilinogen 0.2 mg/dL (<2.0) Leukocyte Esterase Rfl Negative DANIE/UL (Negative) 10/09/24 10/10/24 23:13 04:15 WBC RBC Hgb 14.2 g/dL 13.5 L g/dL (14.0-18.0) (14.0-18.0) Hct 40.0 L % 39.1 L % (42.0-52.0) (42.0-52.0) MCV MCH MCHC RDW Plt Count MPV Immature Gran % (Auto) Neut % (Auto) Lymph % (Auto) [place] % (Auto) Eos % (Auto) Baso % (Auto) Lymph # (Auto) [place] # (Auto) Eos # (Auto) Baso # (Auto) Abs Immat Gran (auto) Absolute Neuts (auto) Absolute Nucleated RBC Nucleated RBC % PT INR APTT Sodium Potassium Chloride Carbon Dioxide Anion Gap BUN Creatinine Estim Creat Clear Calc Estimated GFR Glucose Calcium Magnesium Total Bilirubin AST ALT Alkaline Phosphatase Total Protein Albumin Lipase Urine Color Urine Appearance Urine pH Ur Specific [place] Urine Protein Urine Glucose (UA) Urine Ketones Ur Blood (Man) Urine Nitrate Urine Bilirubin Urine Urobilinogen Leukocyte Esterase Rfl Patient hx anesthesia problems: none Family hx anesthesia problems: none Results Review: All pre-operative results and documents have been reviewed as part of the pre-operative evaluation. [facility] Past Medical History Medical History DVT (deep venous thrombosis) Pulmonary embolism Elevated white blood cell count, unspecified Insomnia, unspecified Hepatic failure, unspecified without coma Chronic anemia GI bleed Secondary to bleeding varices. Esophageal varices Depression with anxiety Fracture of left hip Cirrhosis Holt's esophagus with esophagitis Tobacco abuse Alcoholic hepatitis Alcohol abuse Surgical History Surgical History History of colonoscopy with polypectomy (05/25/22) Benign colon polyp, internal hemorrhoids. History of esophagogastroduodenoscopy (05/22/22) Nonbleeding esophageal varices, Holt esophagus without dysplasia, gastritis. Family History Family History Mother Liver disease Cirrhosis Grandparent Heart failure Heart attack Social History Social History Social History: Surrogate medical decision maker: Modesto Diaz, father. Code status: Full code. Smoking packs per day: 0.25 Smoking cigarettes per day: 5.0 Years smoked: 20 Smoking pack-years: 5.00 Smoking status: Current every day smoker Additional smoking assessment comments: Now smoking about 5 cigarettes a day while at a long term facility. T Alcohol intake: former Drinks per week: 120 Alcohol use details: Longstanding history of alcohol abuse. Substance use: current Substance use type: does not use Last use: 7 liters vodka week; patient states no alcohol x2 weeks Do You Feel Safe in your Home?: Yes Lack of Transportation: No Lack of Food: Never True Current Housing: I Have Housing Concerned About Future Housing: No Difficulty Paying Gas/Electric Bills: No Difficulty Paying for Meds: No Currently Unemployed: No Education: High School Diploma/GED Difficulty w/ Childcare or Family Care: No Living arrangements: snf Additional living arrangements comments: Currently at [facility] Spiritual care concerns: No Anes - Eval Final PreProcedure Day of Procedure 10/10/24 08:48 Patient weight: obese Heart: regular rate and rhythm Lungs: clear to auscultation Airway: Mallampati scale class III and special considerations poor dentition Neurological: alert and oriented Last oral intake: >/= 8 hours ASA classification: III Emergent: no Anesthetic plan: proceed Anesthesia type and monitoring: general GIVS and standard monitoring Results Review: All pre-operative results and documents have been reviewed as part of the pre-operative evaluation. Informed Consent: The patient's anesthetic plan and its attendant risks and benefits were discussed with the patient/family/POA. Questions were solicited and answers provided to the satisfaction of the patient/family/POA.
[2024-10-10] MEDS: LACTATED RINGERS 1,000 ML 150 ML IV CONT (08:49)
--- NOTE | 2024-10-10 08:58 | P.PNIM_ITS ---
Progress Note: A&P Assessment and Plan (1) Coffee ground emesis: Code(s): K92.0 - Hematemesis Status: Acute (2) Alcohol abuse: Code(s): F10.10 - Alcohol abuse, uncomplicated Status: Chronic (3) Alcohol use disorder: Code(s): F10.90 - Alcohol use, unspecified, uncomplicated Status: Acute (4) Hypokalemia: Code(s): E87.6 - Hypokalemia Status: Acute Plan Acute GI bleeding Patient presented ED with chief complaint of hematemesis: Qualifiers: Nausea presence: with nausea Qualified Code(s): K92.0 - Hematemesis Code(s): K92.0 - Hematemesis Status: Acute Assessment and Plan: placed in observation in IMU holding apixaban consult to GI continue to monitor started on PPI Hemoglobin dropped slightly , consistent with acute blood loss anemia Patient is hemodynamically stable Follow-up CBC hemoglobin Transfuse p.r.n. Underwent EGD today. 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, gastritis Hypokalemia: Code(s): E87.6 - Hypokalemia Status: Acute Assessment and Plan: replace as needed Follow-up BMP, magnesium level within normal limit Alcohol use disorder: Code(s): F10.90 - Alcohol use, unspecified, uncomplicated Status: Acute Assessment and Plan: CIWA as needed Deep vein thrombosis (DVT) of right lower extremity: Qualifiers: Affected thrombotic vein of extremity: unspecified vein of extremity Chronicity: acute Qualified Code(s): I82.401 - Acute embolism and thrombosis of unspecified deep veins of right lower extremity Code(s): I82.401 - Acute embolism and thrombosis of unspecified deep veins of right lower extremity Status: Acute Assessment and Plan: holding apixaban Resume Eliquis when it is okay for GI Pulmonary embolism: Code(s): I26.99 - Other pulmonary embolism without acute cor pulmonale Status: Acute Assessment and Plan: holding apixaban. 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 Patient underwent EGD, still has a poor intake. Has epigastric pain. Denies lightheadedness. Also denies nausea vomiting bloody stools. Blood pressure stable on the lower side, afebrile, Exam Narrative: GENERAL: in no acute distress. Well-nourished. - EYES: EOMI. Anicteric. - HENT: Moist mucous membranes. - LUNGS: Clear to auscultation bilateral ly, no wheezing, rhonchi, or rales. - CARDIOVASCULAR: Regular rate and rhyth m. No murmur. No JVD. - ABDOMEN: Soft, non-tender and non-dist ended. No palpable masses. - EXTREMITIES: No edema. Peripheral puls es 2+. Non-tender. - NEUROLOGIC: No focal neurological defi cits. CN II-XII grossly intact. - PSYCHIATRIC: Awake, Alert and oriented x 3. Appropriate mood and affect. - SKIN: No rashes or lesions. Warm. - LYMPH: No cervical lymphadenopathy. Objective Data Vital Signs Vital Signs: Vital Signs - 24 hr 10/09/24 16:58 10/09/24 18:41 10/09/24 18:44 Temperature 97.2 F L Pulse Rate 88 82 Respiratory Rate 18 18 Blood Pressure 131/74 113/88 Pulse Oximetry 100 98 98 Oxygen Delivery Room Air 10/09/24 18:44 10/09/24 18:45 10/09/24 18:46 Temperature Pulse Rate 82 82 82 Respiratory Rate 17 13 16 Blood Pressure 113/88 98/68 L Pulse Oximetry 98 98 98 Oxygen Delivery 10/09/24 19:00 10/09/24 19:01 10/09/24 19:15 Temperature Pulse Rate 84 85 86 Respiratory Rate 13 13 13 Blood Pressure 129/82 Pulse Oximetry 98 98 Oxygen Delivery 10/09/24 19:16 10/09/24 19:30 10/09/24 19:31 Temperature Pulse Rate 86 86 87 Respiratory Rate 13 13 14 Blood Pressure 118/76 121/81 Pulse Oximetry Oxygen Delivery 10/09/24 20:00 10/09/24 21:43 10/10/24 00:12 Temperature Pulse Rate 84 82 Respiratory Rate 20 19 15 Blood Pressure 100/87 122/80 Pulse Oximetry 100 96 96 Oxygen Delivery 10/10/24 00:50 10/10/24 01:00 10/10/24 01:00 Temperature 97.8 F Pulse Rate 75 78 78 Respiratory Rate 16 16 Blood Pressure 111/73 Pulse Oximetry 100 100 Oxygen Delivery Room Air 10/10/24 02:00 10/10/24 04:00 10/10/24 04:00 Temperature Pulse Rate 84 82 81 Respiratory Rate 16 Blood Pressure Pulse Oximetry 97 Oxygen Delivery Room Air 10/10/24 04:02 10/10/24 05:35 10/10/24 07:50 Temperature 98.2 F 97.6 F Pulse Rate 81 80 75 Respiratory Rate 16 14 Blood Pressure 116/76 109/70 Pulse Oximetry 97 98 Oxygen Delivery 10/10/24 08:45 10/10/24 08:57 Temperature 96.8 F L Pulse Rate 75 Respiratory Rate 22 H Blood Pressure 105/65 Pulse Oximetry 97 97 Oxygen Delivery Room Air Room Air Intake/Output Intake/Output: Intake & Output 10/07/24 10/08/24 10/09/24 10/10/24 23:59 23:59 23:59 23:59 Intake Total 620 Balance 620 Meds/Results Medications: Active Medications Generic Name Dose Route Start Last Admin Trade Name Freq PRN Reason Stop Dose Admin Acetaminophen 1,000 mg 10/10/24 01:13 Acetaminophen 500 Mg Tablet PO Q6H PRN Pain 1-3 Hydrocodone Bitart/Acetaminophen 1 tab 10/10/24 02:00 10/10/24 02:07 Hydrocodone/Acetaminophen (*Crx) 10-325 Mg Tablet PO 1 tab Q6H LIDA Administration Al Hydrox/Mg Hydrox/Simethicone 30 ml 10/10/24 01:13 Mag Hydrox/Al Hydrox/Simeth 30 Ml Udc PO ONCE PRN indigestion Baclofen 10 mg 10/10/24 09:00 Baclofen 10 Mg Tablet PO BID LIDA Bupropion HCl 100 mg 10/10/24 09:00 Bupropion Hcl 100 Mg Tablet PO TID LIDA Buspirone HCl 15 mg 10/10/24 09:00 Buspirone Hcl 5 Mg Tablet PO TID [facility] Calcium Carbonate 200 mg 10/10/24 09:00 Calcium Carbonate (Tums) 500 Mg (200 Mg Elemental) PO TID [facility] Ferrous Sulfate 325 mg 10/10/24 09:00 Ferrous Sulfate [address] BY MOUTH DAILY [facility] Gabapentin 400 mg 10/10/24 09:00 Gabapentin 400 Mg Capsule PO TID [facility] Haloperidol 0.5 mg 10/10/24 09:00 Haloperidol 0.5 Mg Tablet PO BID [facility] Haloperidol 2 mg 10/10/24 09:00 Haloperidol 1 Mg Tablet PO BID [facility] Hydroxyzine HCl 25 mg 10/10/24 09:00 Hydroxyzine Hcl 25 Mg Tablet PO TID [facility] Lactated Ringer's 1,000 mls @ 150 mls/hr 10/10/24 08:45 10/10/24 08:57 Lr - Lactated Ringers Iv IV CONT 150 mls/hr .Q6H40M [facility] Infusion Lactobacillus Acidophilus 1 tablet 10/10/24 09:00 Acidophilus/Bulgaricus Chewable Tablet BY MOUTH BID [facility] Lorazepam 1 mg 10/10/24 01:15 10/10/24 02:07 Lorazepam (*Crx) 1 Mg Tablet PO 1 mg Q6H [facility] Administration Magnesium Oxide 400 mg 10/10/24 21:00 Magnesium Oxide 400 Mg Tablet PO HS [facility] Melatonin 3 mg 10/10/24 21:00 Melatonin 3 Mg Tablet PO HS [facility] Neomycin/Polymyxin/Bacitracin 1 applic 10/10/24 09:00 Neomycin/Polymyxin/Bacitracin Ointment 15 Gm Tube TOPICAL QID [facility] Pantoprazole Sodium 40 mg 10/10/24 09:00 Pantoprazole Sodium Iv 40 Mg Vial IV PUSH Q12HR [facility] Prazosin HCl 1 mg 10/10/24 09:00 Prazosin Hcl 1 Mg Capsule PO QID [facility] Propranolol HCl 10 mg 10/10/24 09:00 Propranolol Hcl 10 Mg Tablet PO Q12HR [facility] Rifaximin 550 mg 10/10/24 09:00 Rifaximin 550 Mg Tablet PO Q12HR [facility] Simethicone 80 mg 10/10/24 01:13 Simethicone 80 Mg Tab.Chew PO BID PRN Abdominal Discomfort Sucralfate 1,000 mg 10/10/24 09:00 Sucralfate Susp 100 Mg/Ml 10 Ml Udc PO TID [facility] Trazodone HCl 50 mg 10/10/24 21:00 Trazodone Hcl 50 Mg Tablet PO QHS [facility] Radiology Results: ITS Impressions Abdomen/Pelvis CT 10/09/24 20:00 IMPRESSION: 1. Cirrhosis of the liver with portal venous hypertension. 2. Umbilical hernia containing fat. Labs Labs: Laboratory Results - last 24 hr 10/09/24 10/09/24 10/09/24 18:33 18:40 20:09 WBC 6.6 RBC 4.46 L Hgb 14.9 Hct 42.1 MCV 94.4 MCH 33.4 MCHC 35.4 RDW 13.4 Plt Count 169 MPV 10.3 Immature Gran % (Auto) 0.6 H Neut % (Auto) 53.9 Lymph % (Auto) 30.7 [place] % (Auto) 12.2 H Eos % (Auto) 1.8 Baso % (Auto) 0.8 Lymph # (Auto) 2.01 [place] # (Auto) 0.8 H Eos # (Auto) 0.1 Baso # (Auto) 0.1 Abs Immat Gran (auto) 0.04 H Absolute Neuts (auto) 3.5 Absolute Nucleated RBC 0.000 Nucleated RBC % 0.0 PT 14.9 H INR 1.1 APTT 30.1 Sodium 134 L Potassium 3.1 L Chloride 96 L Carbon Dioxide 30 Anion Gap 8 BUN 7 L Creatinine 0.70 Estim Creat Clear Calc 135 Estimated GFR > 60 Glucose 86 Calcium 9.0 Magnesium 1.8 Total Bilirubin 0.6 AST 33 ALT 25 Alkaline Phosphatase 106 Total Protein 8.0 Albumin 4.2 Lipase 146 Urine Color Yellow Urine Appearance Clear Urine pH 5.5 Ur Specific [place] 1.027 Urine Protein Negative Urine Glucose (UA) Negative Urine Ketones Negative Ur Blood (Man) Negative Urine Nitrate Negative Urine Bilirubin Negative Urine Urobilinogen 0.2 Leukocyte Esterase Rfl Negative 10/09/24 10/10/24 23:13 04:15 WBC RBC Hgb 14.2 13.5 L Hct 40.0 L 39.1 L MCV MCH MCHC RDW Plt Count MPV Immature Gran % (Auto) Neut % (Auto) Lymph % (Auto) [place] % (Auto) Eos % (Auto) Baso % (Auto) Lymph # (Auto) [place] # (Auto) Eos # (Auto) Baso # (Auto) Abs Immat Gran (auto) Absolute Neuts (auto) Absolute Nucleated RBC Nucleated RBC % PT INR APTT Sodium Potassium Chloride Carbon Dioxide Anion Gap BUN Creatinine Estim Creat Clear Calc Estimated GFR Glucose Calcium Magnesium Total Bilirubin AST ALT Alkaline Phosphatase Total Protein Albumin Lipase Urine Color Urine Appearance Urine pH Ur Specific [place] Urine Protein Urine Glucose (UA) Urine Ketones Ur Blood (Man) Urine Nitrate Urine Bilirubin Urine Urobilinogen Leukocyte Esterase Rfl
[2024-10-10] MEDS: busPIRone HCL 5 MG TABLET 15 MG PO ×3 (09:48→17:17)
[2024-10-10] MEDS: PANTOPRAZOLE SODIUM IV 40 MG VIAL IV PUSH ×2 (09:48→21:22)
[2024-10-10] MEDS: CALCIUM CARBONATE (TUMS) 500 MG (200 MG ELEMENTAL) PO ×3 (09:48→17:17)
[2024-10-10] MEDS: SUCRALFATE SUSP 100 MG/ML 10 ML UDC 1000 MG PO ×3 (09:48→17:18)
[2024-10-10] MEDS: BACLOFEN 10 MG TABLET PO ×2 (09:48→17:17)
[2024-10-10] MEDS: FERROUS SULFATE 325 MG TABLET DR BY MOUTH (09:49)
[2024-10-10] MEDS: PRAZOSIN HCL 1 MG CAPSULE PO ×4 (09:49→21:22)
[2024-10-10] MEDS: GABAPENTIN 400 MG CAPSULE PO ×3 (09:49→17:17)
[2024-10-10] MEDS: rifAXIMin 550 MG TABLET PO ×2 (09:49→21:21)
[2024-10-10] MEDS: ACIDOPHILUS/BULGARICUS CHEWABLE TABLET 1 TABLET BY MOUTH ×2 (09:49→17:18)
[2024-10-10] MEDS: HALOPERIDOL 1 MG TABLET 2 MG PO ×2 (09:50→18:04)
[2024-10-10] MEDS: hydrOXYzine HCL 25 MG TABLET PO ×3 (09:50→17:17)
[2024-10-10] MEDS: buPROPion HCL 100 MG TABLET PO ×3 (09:50→18:04)
[2024-10-10] MEDS: HALOPERIDOL 0.5 MG TABLET PO ×2 (09:51→17:17)
[2024-10-10] MEDS: PROPRANOLOL HCL 10 MG TABLET PO ×2 (09:51→21:21)
[2024-10-10 10:24] LABS: Basophils Absolute Auto 0.1 K/mm3 (0.0-0.1); Basophils Percent Auto 0.9 % (0.2-1.2); Eosinophils Absolute Auto 0.1 K/mm3 (0-0.3); Eosinophils Percent Auto 1.3 % (0-4.4); Hematocrit 40.4 % (42.0-52.0); Hemoglobin 13.7 g/dL (14.0-18.0); Immature Granulocyte Absolute 0.03 K/mm3 (0.00-0.031); Immature Granulocyte Percent A 0.4 % (0-0.5); Lymphocytes Absolute Auto 1.86 K/mm3 (0.9-3.2); Lymphocytes Percent Auto 24.1 % (18.3-44.2); Mean Corpuscular HGB Conc 33.9 g/dl (32-36); Mean Corpuscular Hemoglobin 33.3 pg (26-34); Mean Corpuscular Volume 98.1 fl (80-100); Mean Platelet Volume 12.5 fl (7.4-10.4); Monocytes Absolute Auto 1.2 K/mm3 (0.1-0.6); Monocytes Percent Auto 15.4 % (2.6-8.5); Neutrophils Absolute Auto 4.5 K/mm3 (1.3-6.7); Neutrophils Percent Auto 57.9 % (45.5-73.1); Platelet Count Result 178 k/mm3 (150-375); Red Blood Count 4.12 M/mm3 (4.6-6.20); Red Cell Distribution Width 14.2 % (11.5-14.5); White Blood Count 7.7 K/mm3 (4.5-10.0)
[2024-10-10 10:35] LABS: Anion Gap 0 mmol/L (4-12); Blood Urea Nitrogen 7 mg/dL (9-20); Calcium 8.5 mg/dL (8.4-10.2); Carbon Dioxide 32 mmol/L (22-30); Chloride 101 mmol/L (98-107); Estimated CRCL calculation 135 ml/min; Estimated Glomerular Filt Rate > 60; Glucose 84 mg/dL (65-110); Potassium 3.4 mmol/L (3.4-5.0); Sodium 133 mmol/L (137-145)
[2024-10-10] MEDS: SIMETHICONE 80 MG TAB.CHEW PO (12:48)
[2024-10-10 16:43] LABS: Hematocrit 38.5 % (42.0-52.0); Hemoglobin 13.5 g/dL (14.0-18.0)
[2024-10-10] MEDS: MAGNESIUM OXIDE 400 MG TABLET PO (21:21)
[2024-10-10] MEDS: traZODone HCL 50 MG TABLET PO (21:22)
[2024-10-11] MEDS: LORazepam (*CRX) 1 MG TABLET PO ×4 (00:59→18:58)
[2024-10-11] MEDS: HYDROcodone/acetaminophen (*CRX) 10-325 MG TABLET 1 TAB PO ×4 (02:09→20:48)
[2024-10-11 06:00] VITALS: BP 104/68; PULSE 84; RESP 16; TEMP 36.4; O2SAT 96
--- NOTE | 2024-10-11 08:28 | P.PNIM_ITS ---
Progress Note: A&P Assessment and Plan (1) Coffee ground emesis: Code(s): K92.0 - Hematemesis Status: Acute (2) Alcohol abuse: Code(s): F10.10 - Alcohol abuse, uncomplicated Status: Chronic (3) Alcohol use disorder: Code(s): F10.90 - Alcohol use, unspecified, uncomplicated Status: Acute (4) Hypokalemia: Code(s): E87.6 - Hypokalemia Status: Acute Plan Acute GI bleeding Patient presented ED with chief complaint of hematemesis: Qualifiers: Nausea presence: with nausea Qualified Code(s): K92.0 - Hematemesis Code(s): K92.0 - Hematemesis Status: Acute Assessment and Plan: placed in observation in IMU holding apixaban consult to GI continue to monitor started on PPI Hemoglobin dropped slightly , consistent with acute blood loss anemia Patient is hemodynamically stable Follow-up CBC hemoglobin Transfuse p.r.n. Underwent EGD today. 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 Deep vein thrombosis (DVT) of right lower extremity: Qualifiers: Affected thrombotic vein of extremity: unspecified vein of extremity Chronicity: acute Qualified Code(s): I82.401 - Acute embolism and thrombosis of unspecified deep veins of right lower extremity Code(s): I82.401 - Acute embolism and thrombosis of unspecified deep veins of right lower extremity Status: Acute Assessment and Plan: holding apixaban Resume Eliquis when it is okay for GI Pulmonary embolism: Code(s): I26.99 - Other pulmonary embolism without acute cor pulmonale Status: Acute Assessment and Plan: holding apixaban. Resume Eliquis when it is okay for GI Fracture of left hip: Code(s): S72.002A - Fracture of unspecified part of neck of left femur, initial encounter for closed fracture Status: Chronic Assessment and Plan: supportive care Liver cirrhosis, ascites, Portal hypertension: Code(s): K76.6 - Portal hypertension Status: Acute Assessment and Plan: continue propranolol, lactulose 30 g t.i.d. p.o. 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 Patient feels abdomen distended, denies abdomen pain patient denies nausea vomiting bloody stools. Blood pressure stable on the lower side, afebrile, Exam Narrative: GENERAL: in no acute distress. Well-nourished. - EYES: EOMI. Anicteric. - HENT: Moist mucous membranes. - LUNGS: Clear to auscultation bilateral ly, no wheezing, rhonchi, or rales. - CARDIOVASCULAR: Regular rate and rhyth m. No murmur. No JVD. - ABDOMEN: Soft, non-tender distended. N o palpable masses. - EXTREMITIES: No edema. Peripheral puls es 2+. Non-tender. - NEUROLOGIC: No focal neurological defi cits. CN II-XII grossly intact. - PSYCHIATRIC: Awake, Alert and oriented x 3. Appropriate mood and affect. - SKIN: No rashes or lesions. Warm. - LYMPH: No cervical lymphadenopathy. Objective Data Vital Signs Vital Signs: Vital Signs - 24 hr 10/10/24 08:45 10/10/24 08:57 10/10/24 08:58 Temperature 96.8 F L Pulse Rate 75 80 Respiratory Rate 22 H 17 Blood Pressure 105/65 88/44 L Pulse Oximetry 97 97 94 Oxygen Delivery Room Air Room Air Room Air 10/10/24 09:08 10/10/24 09:18 10/10/24 09:51 Temperature Pulse Rate 81 78 74 Respiratory Rate 17 23 H Blood Pressure 100/57 L 100/53 L Pulse Oximetry 97 96 Oxygen Delivery Room Air Room Air 10/10/24 10:00 10/10/24 11:34 10/10/24 13:30 Temperature 97.6 F Pulse Rate 78 78 Respiratory Rate 16 Blood Pressure 120/65 Pulse Oximetry 95 Oxygen Delivery Room Air 10/10/24 14:00 10/10/24 21:21 10/10/24 22:00 Temperature 97.6 F 97.6 F Pulse Rate 87 81 81 Respiratory Rate 16 16 Blood Pressure 108/61 110/68 Pulse Oximetry 96 98 Oxygen Delivery 10/11/24 06:00 Temperature 97.6 F Pulse Rate 84 Respiratory Rate 16 Blood Pressure 104/68 Pulse Oximetry 96 Oxygen Delivery Intake/Output Intake/Output: Intake & Output 10/08/24 10/09/24 10/10/24 10/11/24 23:59 23:59 23:59 23:59 Intake Total 1380 400 Output Total 350 Balance 1380 50 Meds/Results Medications: Active Medications Generic Name Dose Route Start Last Admin Trade Name Freq PRN Reason Stop Dose Admin Acetaminophen 1,000 mg 10/10/24 01:13 Acetaminophen 500 Mg Tablet PO Q6H PRN Pain 1-3 Hydrocodone Bitart/Acetaminophen 1 tab 10/10/24 02:00 10/11/24 02:09 Hydrocodone/Acetaminophen (*Crx) 10-325 Mg Tablet PO 1 tab Q6H LIDA Administration Al Hydrox/Mg Hydrox/Simethicone 30 ml 10/10/24 01:13 Mag Hydrox/Al Hydrox/Simeth 30 Ml Udc PO ONCE PRN indigestion Baclofen 10 mg 10/10/24 09:00 10/10/24 17:17 Baclofen 10 Mg Tablet PO 10 mg BID LIDA Administration Bupropion HCl 100 mg 10/10/24 09:00 10/10/24 18:04 Bupropion Hcl 100 Mg Tablet PO 100 mg TID LIDA Administration Buspirone HCl 15 mg 10/10/24 09:00 10/10/24 17:17 Buspirone Hcl 5 Mg Tablet PO 15 mg TID LIDA Administration Calcium Carbonate 200 mg 10/10/24 09:00 10/10/24 17:17 Calcium Carbonate (Tums) 500 Mg (200 Mg Elemental) PO 200 mg TID LIDA Administration Ferrous Sulfate 325 mg 10/10/24 09:00 10/10/24 09:49 Ferrous Sulfate [address] BY MOUTH 325 mg DAILY LIDA Administration Gabapentin 400 mg 10/10/24 09:00 10/10/24 17:17 Gabapentin 400 Mg Capsule PO 400 mg TID LIDA Administration Haloperidol 0.5 mg 10/10/24 09:00 10/10/24 17:17 Haloperidol 0.5 Mg Tablet PO 0.5 mg BID LIDA Administration Haloperidol 2 mg 10/10/24 09:00 10/10/24 18:04 Haloperidol 1 Mg Tablet PO 2 mg BID LIDA Administration Hydroxyzine HCl 25 mg 10/10/24 09:00 10/10/24 17:17 Hydroxyzine Hcl 25 Mg Tablet PO 25 mg TID LIDA Administration Lactobacillus Acidophilus 1 tablet 10/10/24 09:00 10/10/24 17:18 Acidophilus/Bulgaricus Chewable Tablet BY MOUTH 1 tablet BID LIDA Administration Lorazepam 1 mg 10/10/24 01:15 10/11/24 06:57 Lorazepam (*Crx) 1 Mg Tablet PO 1 mg Q6H LIDA Administration Magnesium Oxide 400 mg 10/10/24 21:00 10/10/24 21:21 Magnesium Oxide 400 Mg Tablet PO 400 mg HS LIDA Administration Melatonin 3 mg 10/10/24 21:00 10/11/24 00:58 Melatonin 3 Mg Tablet PO Not Given HS LIDA Neomycin/Polymyxin/Bacitracin 1 applic 10/10/24 09:00 10/11/24 00:59 Neomycin/Polymyxin/Bacitracin Ointment 15 Gm Tube TOPICAL Not Given QID LIDA Pantoprazole Sodium 40 mg 10/10/24 09:00 10/10/24 21:22 Pantoprazole Sodium Iv 40 Mg Vial IV PUSH 40 mg Q12HR LIDA Administration Prazosin HCl 1 mg 10/10/24 09:00 10/10/24 21:22 Prazosin Hcl 1 Mg Capsule PO 1 mg QID LIDA Administration Propranolol HCl 10 mg 10/10/24 09:00 10/10/24 21:21 Propranolol Hcl 10 Mg Tablet PO 10 mg Q12HR LIDA Administration Rifaximin 550 mg 10/10/24 09:00 10/10/24 21:21 Rifaximin 550 Mg Tablet PO 550 mg Q12HR LIDA Administration Simethicone 80 mg 10/10/24 01:13 10/10/24 12:48 Simethicone 80 Mg Tab.Chew PO 80 mg BID PRN Administration Abdominal Discomfort Sucralfate 1,000 mg 10/10/24 09:00 10/10/24 17:18 Sucralfate Susp 100 Mg/Ml 10 Ml Udc PO 1,000 mg TID LIDA Administration Trazodone HCl 50 mg 10/10/24 21:00 10/10/24 21:22 Trazodone Hcl 50 Mg Tablet PO 50 mg QHS LIDA Administration Radiology Results: ITS Impressions Abdomen/Pelvis CT 10/09/24 20:00 IMPRESSION: 1. Cirrhosis of the liver with portal venous hypertension. 2. Umbilical hernia containing fat. Labs Labs: Laboratory Results - last 24 hr 10/10/24 10/10/24 10/10/24 04:11 04:14 04:15 WBC 7.7 RBC 4.12 L Hgb 13.7 L 13.5 L Hct 40.4 L MCV 98.1 MCH 33.3 MCHC 33.9 RDW 14.2 Plt Count 178 MPV 12.5 H Immature Gran % (Auto) 0.4 Neut % (Auto) 57.9 Lymph % (Auto) 24.1 [place] % (Auto) 15.4 H Eos % (Auto) 1.3 Baso % (Auto) 0.9 Lymph # (Auto) 1.86 [place] # (Auto) 1.2 H Eos # (Auto) 0.1 Baso # (Auto) 0.1 Abs Immat Gran (auto) 0.03 Absolute Neuts (auto) 4.5 Absolute Nucleated RBC 0.000 Nucleated RBC % 0.0 Sodium 133 L Potassium 3.4 Chloride 101 Carbon Dioxide 32 H Anion Gap 0 L BUN 7 L Creatinine 0.70 Estim Creat Clear Calc 135 Estimated GFR > 60 Glucose 84 Calcium 8.5 10/10/24 16:38 WBC RBC Hgb 13.5 L Hct 38.5 L MCV MCH MCHC RDW Plt Count MPV Immature Gran % (Auto) Neut % (Auto) Lymph % (Auto) [place] % (Auto) Eos % (Auto) Baso % (Auto) Lymph # (Auto) [place] # (Auto) Eos # (Auto) Baso # (Auto) Abs Immat Gran (auto) Absolute Neuts (auto) Absolute Nucleated RBC Nucleated RBC % Sodium Potassium Chloride Carbon Dioxide Anion Gap BUN Creatinine Estim Creat Clear Calc Estimated GFR Glucose Calcium
[2024-10-11 09:03] VITALS: PULSE 80
[2024-10-11] MEDS: ACIDOPHILUS/BULGARICUS CHEWABLE TABLET 1 TABLET BY MOUTH ×2 (09:03→17:30)
[2024-10-11] MEDS: BACLOFEN 10 MG TABLET PO ×2 (09:03→17:30)
[2024-10-11] MEDS: HALOPERIDOL 1 MG TABLET 2 MG PO ×2 (09:03→17:31)
[2024-10-11] MEDS: rifAXIMin 550 MG TABLET PO ×2 (09:03→20:48)
[2024-10-11] MEDS: HALOPERIDOL 0.5 MG TABLET PO ×2 (09:03→17:31)
[2024-10-11] MEDS: GABAPENTIN 400 MG CAPSULE PO ×3 (09:03→17:30)
[2024-10-11] MEDS: buPROPion HCL 100 MG TABLET PO ×3 (09:03→17:30)
[2024-10-11] MEDS: PROPRANOLOL HCL 10 MG TABLET PO ×2 (09:03→20:47)
[2024-10-11] MEDS: FERROUS SULFATE 325 MG TABLET DR BY MOUTH (09:03)
[2024-10-11] MEDS: busPIRone HCL 5 MG TABLET 15 MG PO ×3 (09:03→17:30)
[2024-10-11] MEDS: PRAZOSIN HCL 1 MG CAPSULE PO ×4 (09:03→20:47)
[2024-10-11] MEDS: CALCIUM CARBONATE (TUMS) 500 MG (200 MG ELEMENTAL) PO ×3 (09:03→17:31)
[2024-10-11] MEDS: PANTOPRAZOLE SODIUM IV 40 MG VIAL IV PUSH ×2 (09:06→20:49)
[2024-10-11] MEDS: SUCRALFATE SUSP 100 MG/ML 10 ML UDC 1000 MG PO ×3 (09:06→17:30)
[2024-10-11 09:09] LABS: Basophils Percent Auto 0.8 % (0.2-1.2); Eosinophils Absolute Auto 0.1 K/mm3 (0-0.3); Eosinophils Percent Auto 1.6 % (0-4.4); Hematocrit 42.1 % (42.0-52.0); Hemoglobin 14.2 g/dL (14.0-18.0); Immature Granulocyte Absolute 0.02 K/mm3 (0.00-0.031); Immature Granulocyte Percent A 0.4 % (0-0.5); Lymphocytes Absolute Auto 1.35 K/mm3 (0.9-3.2); Lymphocytes Percent Auto 27.6 % (18.3-44.2); Mean Corpuscular HGB Conc 33.7 g/dl (32-36); Mean Corpuscular Hemoglobin 33.6 pg (26-34); Mean Corpuscular Volume 99.5 fl (80-100); Mean Platelet Volume 10.7 fl (7.4-10.4); Monocytes Absolute Auto 0.8 K/mm3 (0.1-0.6); Neutrophils Absolute Auto 2.6 K/mm3 (1.3-6.7); Neutrophils Percent Auto 53.6 % (45.5-73.1); Platelet Count Result 144 k/mm3 (150-375); Red Blood Count 4.23 M/mm3 (4.6-6.20); Red Cell Distribution Width 14.1 % (11.5-14.5); White Blood Count 4.9 K/mm3 (4.5-10.0)
[2024-10-11 09:28] LABS: Alanine Aminotransferase 20 U/L (6-50); Albumin Level 3.6 g/dL (3.5-5.1); Alkaline Phosphatase 78 U/L (38-126); Anion Gap 3 mmol/L (4-12); Aspartate Amino Transferase 27 U/L (17-59); Blood Urea Nitrogen 11 mg/dL (9-20); Calcium 9.1 mg/dL (8.4-10.2); Carbon Dioxide 32 mmol/L (22-30); Chloride 104 mmol/L (98-107); Estimated CRCL calculation 135 ml/min; Estimated Glomerular Filt Rate > 60; Glucose 96 mg/dL (65-110); Potassium 3.3 mmol/L (3.4-5.0); Sodium 139 mmol/L (137-145)
[2024-10-11] MEDS: hydrOXYzine HCL 25 MG TABLET PO ×3 (09:30→17:30)
--- NOTE | 2024-10-11 12:21 | P.PNGI_ITS ---
Progress Note: A&P Assessment and Plan (1) Coffee ground emesis: Code(s): K92.0 - Hematemesis Status: Acute Assessment and Plan: no signs of recent bleeding and h/h normal given finding of Holt's recommend residential use of ppi daily no objections to resume blood thinner if medically necessary ok to discharge (2) Cirrhosis: Qualifiers: Hepatic cirrhosis type: alcoholic cirrhosis Ascites presence: with ascites Qualified Code(s): K70.31 - Alcoholic cirrhosis of liver with ascites Code(s): K74.60 - Unspecified cirrhosis of liver Status: Chronic Assessment and Plan: CT scan reviewed, no ascites at this time or any acute finding advance diet and nutrition support (3) Holt's esophagus with esophagitis: Code(s): K22.70 - Holt's esophagus without dysplasia; K20.90 - Esophagitis, unspecified without bleeding Status: Chronic Assessment and Plan: ppi daily egd in 2 years (4) Abdominal pain: Qualifiers: Abdominal location: right upper quadrant Qualified Code(s): R10.11 - Right upper quadrant pain Code(s): R10.9 - Unspecified abdominal pain Status: Acute (5) Hx of residential use of blood thinners: Code(s): Z92.29 - Personal history of other drug therapy Status: Acute Subjective Date/time seen: 10/11/24 12:21 Interval history: egd without signs of bleeding, no obvious varices, noted long segment Holt's abdomen feels bloated, he is eating but poor appetite. Review of Systems Review of Systems: All systems reviewed & are unremarkable except as noted in HPI and below Exam Const: General: comfortable, no acute distress, well developed, alert, awake, ill appearing chronically and edematous Orientation/consciousness: patient oriented x3 HENMT: Head: normal to inspection and normocephalic Ears: hearing grossly normal bilaterally Face/Nose/Sinus: normal facial exam Eyes: General: appearance normal, both eyes and all related structures Neck: Neck: full ROM Resp: Effort & Inspection: normal respiratory effort and able to speak in complete sentences Auscultation: clear to auscultation bilaterally Cardio: Jugular venous distension: no JVD Rate: regular rate GI: Inspection: distended and obesity GI Palp: Yes Soft to palpation : General: Yes deferred Skin: Rashes: no rashes Neuro: General: patient oriented x3 and CN's II-XI intact bilaterally Cranial nerves: Yes CN's II-XII intact bilaterally and Yes Equal, round and reactive pupils present Cognition (Neuro): normal cognition Speech: normal speech Gait exam (Neuro): Unable to assess gait ( patient with chronic hip fracture unable to bear weight) Motor exam (neuro): 5/5 motor strength present throughout Extrem: General: normal to inspection Objective Data Vital Signs Vital Signs: Vital Signs - 24 hr 10/10/24 13:30 10/10/24 14:00 10/10/24 21:21 Temperature 97.6 F Pulse Rate 87 81 Respiratory Rate 16 Blood Pressure 108/61 Pulse Oximetry 96 Oxygen Delivery Room Air 10/10/24 22:00 10/11/24 06:00 10/11/24 09:00 Temperature 97.6 F 97.6 F Pulse Rate 81 84 Respiratory Rate 16 16 Blood Pressure 110/68 104/68 Pulse Oximetry 98 96 Oxygen Delivery Room Air 10/11/24 09:03 Temperature Pulse Rate 80 Respiratory Rate Blood Pressure Pulse Oximetry Oxygen Delivery Intake/Output Intake/Output: Intake & Output 10/08/24 10/09/24 10/10/24 10/11/24 23:59 23:59 23:59 23:59 Intake Total 1380 640 Output Total 350 Balance 1380 290 Meds/Results Medications: Active Medications Generic Name Dose Route Start Last Admin Trade Name Freq PRN Reason Stop Dose Admin Acetaminophen 1,000 mg 10/10/24 01:13 Acetaminophen 500 Mg Tablet PO Q6H PRN Pain 1-3 Hydrocodone Bitart/Acetaminophen 1 tab 10/10/24 02:00 10/11/24 09:03 Hydrocodone/Acetaminophen (*Crx) 10-325 Mg Tablet PO 1 tab Q6H LIDA Administration Al Hydrox/Mg Hydrox/Simethicone 30 ml 10/10/24 01:13 Mag Hydrox/Al Hydrox/Simeth 30 Ml Udc PO ONCE PRN indigestion Baclofen 10 mg 10/10/24 09:00 10/11/24 09:03 Baclofen 10 Mg Tablet PO 10 mg BID LIDA Administration Bupropion HCl 100 mg 10/10/24 09:00 10/11/24 09:03 Bupropion Hcl 100 Mg Tablet PO 100 mg TID LIDA Administration Buspirone HCl 15 mg 10/10/24 09:00 10/11/24 09:03 Buspirone Hcl 5 Mg Tablet PO 15 mg TID LIDA Administration Calcium Carbonate 200 mg 10/10/24 09:00 10/11/24 09:03 Calcium Carbonate (Tums) 500 Mg (200 Mg Elemental) PO 200 mg TID LIDA Administration Ferrous Sulfate 325 mg 10/10/24 09:00 10/11/24 09:03 Ferrous Sulfate [address] BY MOUTH 325 mg DAILY LIDA Administration Gabapentin 400 mg 10/10/24 09:00 10/11/24 09:03 Gabapentin 400 Mg Capsule PO 400 mg TID LIDA Administration Haloperidol 0.5 mg 10/10/24 09:00 10/11/24 09:03 Haloperidol 0.5 Mg Tablet PO 0.5 mg BID LIDA Administration Haloperidol 2 mg 10/10/24 09:00 10/11/24 09:03 Haloperidol 1 Mg Tablet PO 2 mg BID LIDA Administration Hydroxyzine HCl 25 mg 10/10/24 09:00 10/11/24 09:30 Hydroxyzine Hcl 25 Mg Tablet PO 25 mg TID LIDA Administration Lactobacillus Acidophilus 1 tablet 10/10/24 09:00 10/11/24 09:03 Acidophilus/Bulgaricus Chewable Tablet BY MOUTH 1 tablet BID LIDA Administration Lorazepam 1 mg 10/10/24 01:15 10/11/24 06:57 Lorazepam (*Crx) 1 Mg Tablet PO 1 mg Q6H LIDA Administration Magnesium Oxide 400 mg 10/10/24 21:00 10/10/24 21:21 Magnesium Oxide 400 Mg Tablet PO 400 mg HS LIDA Administration Melatonin 3 mg 10/10/24 21:00 10/11/24 00:58 Melatonin 3 Mg Tablet PO Not Given HS LIDA Neomycin/Polymyxin/Bacitracin 1 applic 10/10/24 09:00 10/11/24 09:07 Neomycin/Polymyxin/Bacitracin Ointment 15 Gm Tube TOPICAL Not Given QID LIDA Pantoprazole Sodium 40 mg 10/10/24 09:00 10/11/24 09:06 Pantoprazole Sodium Iv 40 Mg Vial IV PUSH 40 mg Q12HR LIDA Administration Prazosin HCl 1 mg 10/10/24 09:00 10/11/24 09:03 Prazosin Hcl 1 Mg Capsule PO 1 mg QID LIDA Administration Propranolol HCl 10 mg 10/10/24 09:00 10/11/24 09:03 Propranolol Hcl 10 Mg Tablet PO 10 mg Q12HR LIDA Administration Rifaximin 550 mg 10/10/24 09:00 10/11/24 09:03 Rifaximin 550 Mg Tablet PO 550 mg Q12HR LIDA Administration Simethicone 80 mg 10/10/24 01:13 10/10/24 12:48 Simethicone 80 Mg Tab.Chew PO 80 mg BID PRN Administration Abdominal Discomfort Sucralfate 1,000 mg 10/10/24 09:00 10/11/24 09:06 Sucralfate Susp 100 Mg/Ml 10 Ml Udc PO 1,000 mg TID LIDA Administration Trazodone HCl 50 mg 10/10/24 21:00 10/10/24 21:22 Trazodone Hcl 50 Mg Tablet PO 50 mg QHS LIDA Administration Radiology Results: ITS Impressions Abdomen/Pelvis CT 10/09/24 20:00 IMPRESSION: 1. Cirrhosis of the liver with portal venous hypertension. 2. Umbilical hernia containing fat. Labs Labs: Laboratory Results - last 24 hr 10/10/24 10/11/24 10/11/24 16:38 08:14 08:19 WBC 4.9 RBC 4.23 L Hgb 13.5 L 14.2 Hct 38.5 L 42.1 MCV 99.5 MCH 33.6 MCHC 33.7 RDW 14.1 Plt Count 144 L MPV 10.7 H Immature Gran % (Auto) 0.4 Neut % (Auto) 53.6 Lymph % (Auto) 27.6 [place] % (Auto) 16.0 H Eos % (Auto) 1.6 Baso % (Auto) 0.8 Lymph # (Auto) 1.35 [place] # (Auto) 0.8 H Eos # (Auto) 0.1 Baso # (Auto) 0.0 Abs Immat Gran (auto) 0.02 Absolute Neuts (auto) 2.6 Absolute Nucleated RBC 0.000 Nucleated RBC % 0.0 Sodium 139 Cancelled Potassium 3.3 L Cancelled Chloride 104 Cancelled Carbon Dioxide 32 H Cancelled Anion Gap 3 L Cancelled BUN 11 Cancelled Creatinine 0.70 Cancelled Estim Creat Clear Calc 135 Cancelled Estimated GFR > 60 Cancelled Glucose 96 Cancelled Calcium 9.1 Cancelled Total Bilirubin 1.0 AST 27 ALT 20 Alkaline Phosphatase 78 Total Protein 7.0 Albumin 3.6
[2024-10-11 14:15] VITALS: BP 109/74; PULSE 73; RESP 16; TEMP 35.8; O2SAT 97
[2024-10-11 16:53] VITALS: BP 123/73; PULSE 70; RESP 17; TEMP 36.1; O2SAT 99
[2024-10-11] MEDS: LACTULOSE 20 GM/30 ML UDC PO (17:30)
[2024-10-11] MEDS: FUROSEMIDE 20 MG TABLET 60 MG PO (17:30)
--- NOTE | 2024-10-11 18:40 | WPDANESPN ---
Anes - Prog Note Post-Op Date/Time: 10/11/24 18:40 Cardiovascular status: normal Respiratory status: normal Airway patency: baseline Mental status: baseline Post-Op hydration status: normal Vital Signs: Last Vital Signs Temp 97.0 F L 10/11/24 16:53 Pulse 70 10/11/24 16:53 Resp 17 10/11/24 16:53 BP 123/73 10/11/24 16:53 Pulse Ox 99 10/11/24 16:53 O2 Del Method Room Air 10/11/24 09:00 Pain Score (VAS): 0/10 I/O: Intake & Output 10/11/24 10/11/24 10/11/24 07:59 15:59 23:59 Intake Total 400 240 Output Total 350 200 Balance 50 40 Laboratory Tests 10/11/24 08:19 10/11/24 08:19 10/11/24 10/11/24 08:14 08:19 WBC 4.9 RBC 4.23 L Hgb 14.2 Hct 42.1 MCV 99.5 MCH 33.6 MCHC 33.7 RDW 14.1 Plt Count 144 L MPV 10.7 H Immature Gran % (Auto) 0.4 Neut % (Auto) 53.6 Lymph % (Auto) 27.6 [place] % (Auto) 16.0 H Eos % (Auto) 1.6 Baso % (Auto) 0.8 Lymph # (Auto) 1.35 [place] # (Auto) 0.8 H Eos # (Auto) 0.1 Baso # (Auto) 0.0 Abs Immat Gran (auto) 0.02 Absolute Neuts (auto) 2.6 Absolute Nucleated RBC 0.000 Nucleated RBC % 0.0 Sodium 139 Cancelled Potassium 3.3 L Cancelled Chloride 104 Cancelled Carbon Dioxide 32 H Cancelled Anion Gap 3 L Cancelled BUN 11 Cancelled Creatinine 0.70 Cancelled Estim Creat Clear Calc 135 Cancelled Estimated GFR > 60 Cancelled Glucose 96 Cancelled Calcium 9.1 Cancelled Total Bilirubin 1.0 AST 27 ALT 20 Alkaline Phosphatase 78 Total Protein 7.0 Albumin 3.6 Post-procedural complaints: none Patient Feedback: Patient satisfied with anesthetic care.
[2024-10-11 20:47] VITALS: PULSE 85
[2024-10-11] MEDS: traZODone HCL 50 MG TABLET PO (20:47)
[2024-10-11] MEDS: MAGNESIUM OXIDE 400 MG TABLET PO (20:48)
[2024-10-11] MEDS: MELATONIN 3 MG TABLET PO (20:49)
[2024-10-11 21:14] VITALS: BP 110/82; PULSE 81; RESP 18; TEMP 36.6; O2SAT 96
[2024-10-12] MEDS: LORazepam (*CRX) 1 MG TABLET PO ×3 (01:21→12:22)
[2024-10-12 05:57] VITALS: BP 105/69; PULSE 66; RESP 16; TEMP 36.6; O2SAT 95
[2024-10-12] MEDS: LACTULOSE 20 GM/30 ML UDC PO ×2 (08:09→12:22)
[2024-10-12] MEDS: SUCRALFATE SUSP 100 MG/ML 10 ML UDC 1000 MG PO ×2 (08:09→12:22)
[2024-10-12] MEDS: hydrOXYzine HCL 25 MG TABLET PO ×2 (08:09→12:22)
[2024-10-12] MEDS: PANTOPRAZOLE SODIUM IV 40 MG VIAL IV PUSH (08:09)
[2024-10-12] MEDS: FOLIC ACID 1 MG TABLET PO (08:10)
[2024-10-12] MEDS: THIAMINE HCL 100 MG TABLET PO (08:10)
[2024-10-12] MEDS: BACLOFEN 10 MG TABLET PO (08:10)
[2024-10-12] MEDS: GABAPENTIN 400 MG CAPSULE PO ×2 (08:10→12:22)
[2024-10-12] MEDS: busPIRone HCL 5 MG TABLET 15 MG PO ×2 (08:10→12:22)
[2024-10-12] MEDS: rifAXIMin 550 MG TABLET PO (08:10)
[2024-10-12] MEDS: CALCIUM CARBONATE (TUMS) 500 MG (200 MG ELEMENTAL) PO ×2 (08:10→12:22)
[2024-10-12] MEDS: HALOPERIDOL 0.5 MG TABLET PO (08:10)
[2024-10-12] MEDS: FUROSEMIDE 20 MG TABLET 60 MG PO (08:10)
[2024-10-12] MEDS: ACIDOPHILUS/BULGARICUS CHEWABLE TABLET 1 TABLET BY MOUTH (08:10)
[2024-10-12] MEDS: SPIRONOLACTONE 50 MG TABLET 100 MG PO (08:10)
[2024-10-12] MEDS: FERROUS SULFATE 325 MG TABLET DR BY MOUTH (08:10)
[2024-10-12] MEDS: buPROPion HCL 100 MG TABLET PO ×2 (08:10→12:22)
[2024-10-12] MEDS: PRAZOSIN HCL 1 MG CAPSULE PO ×2 (08:11→12:22)
[2024-10-12] MEDS: HALOPERIDOL 1 MG TABLET 2 MG PO (08:11)
[2024-10-12] MEDS: PROPRANOLOL HCL 10 MG TABLET PO (08:11)
[2024-10-12 08:54] LABS: Basophils Percent Auto 0.8 % (0.2-1.2); Eosinophils Absolute Auto 0.1 K/mm3 (0-0.3); Eosinophils Percent Auto 2.3 % (0-4.4); Hematocrit 41.1 % (42.0-52.0); Hemoglobin 13.7 g/dL (14.0-18.0); Immature Granulocyte Absolute 0.03 K/mm3 (0.00-0.031); Immature Granulocyte Percent A 0.6 % (0-0.5); Lymphocytes Percent Auto 25.4 % (18.3-44.2); Mean Corpuscular HGB Conc 33.3 g/dl (32-36); Mean Corpuscular Hemoglobin 32.9 pg (26-34); Mean Corpuscular Volume 98.6 fl (80-100); Mean Platelet Volume 9.6 fl (7.4-10.4); Monocytes Absolute Auto 0.4 K/mm3 (0.1-0.6); Monocytes Percent Auto 7.8 % (2.6-8.5); Neutrophils Percent Auto 63.1 % (45.5-73.1); Platelet Count Result 143 k/mm3 (150-375); Red Blood Count 4.17 M/mm3 (4.6-6.20); White Blood Count 4.7 K/mm3 (4.5-10.0)
[2024-10-12 09:04] LABS: Anion Gap 3 mmol/L (4-12); Blood Urea Nitrogen 7 mg/dL (9-20); Calcium 8.5 mg/dL (8.4-10.2); Carbon Dioxide 27 mmol/L (22-30); Chloride 107 mmol/L (98-107); Estimated CRCL calculation 136 ml/min; Estimated Glomerular Filt Rate > 60; Glucose 159 mg/dL (65-110); Potassium 3.6 mmol/L (3.4-5.0); Sodium 137 mmol/L (137-145)
--- NOTE | 2024-10-12 09:04 | P.PNIM_ITS ---
Progress Note: A&P Assessment and Plan (1) Coffee ground emesis: Code(s): K92.0 - Hematemesis Status: Acute (2) Alcohol abuse: Code(s): F10.10 - Alcohol abuse, uncomplicated Status: Chronic (3) Alcohol use disorder: Code(s): F10.90 - Alcohol use, unspecified, uncomplicated Status: Acute (4) Hypokalemia: Code(s): E87.6 - Hypokalemia Status: Acute Plan Acute GI bleeding Patient presented ED with chief complaint of hematemesis: Qualifiers: Nausea presence: with nausea Qualified Code(s): K92.0 - Hematemesis Code(s): K92.0 - Hematemesis Status: Acute Assessment and Plan: placed in observation in IMU holding apixaban consult to GI continue to monitor started on PPI Hemoglobin dropped slightly , consistent with acute blood loss anemia Patient is hemodynamically stable Follow-up CBC hemoglobin Transfuse p.r.n. Underwent EGD today. 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, gastritis Mechanical fall Patient had a fall yesterday, complained headache, chest pain, leg pain Head CT shows no acute intracranial issues, cervical spine shows no fracture, chest x-ray shows no rib fracture Patient still has headache, denies focal weakness, vision change Consult PT OT healthcare liaison for evaluation Hypokalemia: Code(s): E87.6 - Hypokalemia Status: Acute Assessment and Plan: replace as needed Follow-up BMP, magnesium level within normal limit Alcohol use disorder: Code(s): F10.90 - Alcohol use, unspecified, uncomplicated Status: Acute Assessment and Plan: CIWA as needed Continue thiamine folic acid p.o. Deep vein thrombosis (DVT) of right lower extremity: Qualifiers: Affected thrombotic vein of extremity: unspecified vein of extremity Chronicity: acute Qualified Code(s): I82.401 - Acute embolism and thrombosis of unspecified deep veins of right lower extremity Code(s): I82.401 - Acute embolism and thrombosis of unspecified deep veins of right lower extremity Status: Acute Assessment and Plan: holding apixaban Resume Eliquis when it is okay for GI Pulmonary embolism: Code(s): I26.99 - Other pulmonary embolism without acute cor pulmonale Status: Acute Assessment and Plan: holding apixaban upon arrival. Resume Eliquis, patient has no GI bleed Fracture of left hip: Code(s): S72.002A - Fracture of unspecified part of neck of left femur, initial encounter for closed fracture Status: Chronic Assessment and Plan: supportive care Liver cirrhosis, ascites, Portal hypertension: Code(s): K76.6 - Portal hypertension Status: Acute Assessment and Plan: continue propranolol, lactulose 30 g t.i.d. p.o. 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 Consult PT OT healthcare liaison for evaluation and assisting placement Subjective Date/time seen: 10/12/24 09:04 Interval history: I saw examined the patient today. 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 Patient still has headache, denies chest pain abdomen pain, leg pain. Blood pressure stable on the lower side, afebrile, Exam Narrative: GENERAL: in no acute distress. Well-nourished. - EYES: EOMI. Anicteric. - HENT: Moist mucous membranes. Atrauma tic - LUNGS: Clear to auscultation bilateral ly, no wheezing, rhonchi, or rales. - CARDIOVASCULAR: Regular rate and rhyth m. No murmur. No JVD. - ABDOMEN: Soft, non-tender some distend ed. No palpable masses. - EXTREMITIES: No edema. Peripheral puls es 2+. Non-tender. - NEUROLOGIC: No focal neurological defi cits. CN II-XII grossly intact. - PSYCHIATRIC: Awake, Alert and oriented x 3. Appropriate mood and affect. - SKIN: No rashes or lesions. Warm. - LYMPH: No cervical lymphadenopathy. Objective Data Vital Signs Vital Signs: Vital Signs - 24 hr 10/11/24 14:15 10/11/24 16:53 10/11/24 20:47 Temperature 96.5 F L 97.0 F L Pulse Rate 73 70 85 Respiratory Rate 16 17 Blood Pressure 109/74 123/73 Pulse Oximetry 97 99 Oxygen Delivery 10/11/24 21:14 10/11/24 21:46 10/12/24 05:57 Temperature 97.8 F 97.9 F Pulse Rate 81 66 Respiratory Rate 18 16 Blood Pressure 110/82 105/69 Pulse Oximetry 96 95 Oxygen Delivery Autopap Intake/Output Intake/Output: Intake & Output 10/09/24 10/10/24 10/11/24 10/12/24 23:59 23:59 23:59 23:59 Intake Total 1380 1360 100 Output Total 550 600 Balance 1380 810 -500 Meds/Results Medications: Active Medications Generic Name Dose Route Start Last Admin Trade Name Freq PRN Reason Stop Dose Admin Acetaminophen 1,000 mg 10/10/24 01:13 Acetaminophen 500 Mg Tablet PO Q6H PRN Pain 1-3 Hydrocodone Bitart/Acetaminophen 1 tab 10/11/24 15:03 10/11/24 20:48 Hydrocodone/Acetaminophen (*Crx) 10-325 Mg Tablet PO 1 tab Q6H PRN Administration pain Al Hydrox/Mg Hydrox/Simethicone 30 ml 10/10/24 01:13 Mag Hydrox/Al Hydrox/Simeth 30 Ml Udc PO ONCE PRN indigestion Baclofen 10 mg 10/10/24 09:00 10/12/24 08:10 Baclofen 10 Mg Tablet PO 10 mg BID LIDA Administration Bupropion HCl 100 mg 10/10/24 09:00 10/12/24 08:10 Bupropion Hcl 100 Mg Tablet PO 100 mg TID LIDA Administration Buspirone HCl 15 mg 10/10/24 09:00 10/12/24 08:10 Buspirone Hcl 5 Mg Tablet PO 15 mg TID LIDA Administration Calcium Carbonate 200 mg 10/10/24 09:00 10/12/24 08:10 Calcium Carbonate (Tums) 500 Mg (200 Mg Elemental) PO 200 mg TID LIDA Administration Ferrous Sulfate 325 mg 10/10/24 09:00 10/12/24 08:10 Ferrous Sulfate [address] BY MOUTH 325 mg DAILY LIDA Administration Folic Acid 1 mg 10/12/24 09:00 10/12/24 08:10 Folic Acid 1 Mg Tablet PO 1 mg DAILY LIDA Administration Furosemide 60 mg 10/11/24 17:00 10/12/24 08:10 Furosemide 20 Mg Tablet PO 60 mg BID LIDA Administration Gabapentin 400 mg 10/10/24 09:00 10/12/24 08:10 Gabapentin 400 Mg Capsule PO 400 mg TID LIDA Administration Haloperidol 0.5 mg 10/10/24 09:00 10/12/24 08:10 Haloperidol 0.5 Mg Tablet PO 0.5 mg BID ILDA Administration Haloperidol 2 mg 10/10/24 09:00 10/12/24 08:11 Haloperidol 1 Mg Tablet PO 2 mg BID LIDA Administration Hydroxyzine HCl 25 mg 10/10/24 09:00 10/12/24 08:09 Hydroxyzine Hcl 25 Mg Tablet PO 25 mg TID LIDA Administration Lactobacillus Acidophilus 1 tablet 10/10/24 09:00 10/12/24 08:10 Acidophilus/[place] Chewable Tablet BY MOUTH 1 tablet BID LIDA Administration Lactulose 20 gm 10/11/24 17:00 10/12/24 08:09 Lactulose 20 Gm/30 Ml Udc PO 20 gm TID LIDA Administration Lorazepam 1 mg 10/10/24 01:15 10/12/24 06:27 Lorazepam (*Crx) 1 Mg Tablet PO 1 mg Q6H LIDA Administration Magnesium Oxide 400 mg 10/10/24 21:00 10/11/24 20:48 Magnesium Oxide 400 Mg Tablet PO 400 mg HS LIDA Administration Melatonin 3 mg 10/10/24 21:00 10/11/24 20:49 Melatonin 3 Mg Tablet PO 3 mg HS LIDA Administration Pantoprazole Sodium 40 mg 10/10/24 09:00 10/12/24 08:09 Pantoprazole Sodium Iv 40 Mg Vial IV PUSH 40 mg Q12HR LIDA Administration Prazosin HCl 1 mg 10/10/24 09:00 10/12/24 08:11 Prazosin Hcl 1 Mg Capsule PO 1 mg QID LIDA Administration Propranolol HCl 10 mg 10/10/24 09:00 10/12/24 08:11 Propranolol Hcl 10 Mg Tablet PO 10 mg Q12HR LIDA Administration Rifaximin 550 mg 10/10/24 09:00 10/12/24 08:10 Rifaximin 550 Mg Tablet PO 550 mg Q12HR LIDA Administration Simethicone 80 mg 10/10/24 01:13 10/10/24 12:48 Simethicone 80 Mg Tab.Chew PO 80 mg BID PRN Administration Abdominal Discomfort Spironolactone 100 mg 10/12/24 09:00 10/12/24 08:10 Spironolactone 50 Mg Tablet PO 100 mg DAILY LIDA Administration Sucralfate 1,000 mg 10/10/24 09:00 10/12/24 08:09 Sucralfate Susp 100 Mg/Ml 10 Ml Udc PO 1,000 mg TID LIDA Administration Thiamine HCl 100 mg 10/12/24 09:00 10/12/24 08:10 Thiamine Hcl 100 Mg Tablet PO 100 mg DAILY LIDA Administration Trazodone HCl 50 mg 10/10/24 21:00 10/11/24 20:47 Trazodone Hcl 50 Mg Tablet PO 50 mg QHS LIDA Administration Radiology Results: ITS Impressions Abdomen/Pelvis CT 10/09/24 20:00 IMPRESSION: 1. Cirrhosis of the liver with portal venous hypertension. 2. Umbilical hernia containing fat. Head CT 10/11/24 16:08 IMPRESSION: No acute intracranial findings. Cervical Spine CT 10/11/24 16:09 IMPRESSION: 1. No acute fracture. Chest X-Ray 10/11/24 16:23 IMPRESSION: No acute cardiopulmonary pathology. Hip/Pelvis X-Ray 10/11/24 16:24 IMPRESSION: 1. Mild right hip osteoarthritis. 2. 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 Labs Labs: Laboratory Results - last 24 hr 10/11/24 10/11/24 10/12/24 08:14 08:19 08:47 WBC 4.9 4.7 RBC 4.23 L 4.17 L Hgb 14.2 13.7 L Hct 42.1 41.1 L MCV 99.5 98.6 MCH 33.6 32.9 MCHC 33.7 33.3 RDW 14.1 14.0 Plt Count 144 L 143 L MPV 10.7 H 9.6 Immature Gran % (Auto) 0.4 0.6 H Neut % (Auto) 53.6 63.1 Lymph % (Auto) 27.6 25.4 [place] % (Auto) 16.0 H 7.8 Eos % (Auto) 1.6 2.3 Baso % (Auto) 0.8 0.8 Lymph # (Auto) 1.35 1.20 [place] # (Auto) 0.8 H 0.4 Eos # (Auto) 0.1 0.1 Baso # (Auto) 0.0 0.0 Abs Immat Gran (auto) 0.02 0.03 Absolute Neuts (auto) 2.6 3.0 Absolute Nucleated RBC 0.000 0.000 Nucleated RBC % 0.0 0.0 Sodium 139 Cancelled 137 Potassium 3.3 L Cancelled 3.6 Chloride 104 Cancelled 107 Carbon Dioxide 32 H Cancelled 27 Anion Gap 3 L Cancelled 3 L BUN 11 Cancelled 7 L Creatinine 0.70 Cancelled 0.70 Estim Creat Clear Calc 135 Cancelled 136 Estimated GFR > 60 Cancelled > 60 Glucose 96 Cancelled 159 H Calcium 9.1 Cancelled 8.5 Total Bilirubin 1.0 AST 27 ALT 20 Alkaline Phosphatase 78 Total Protein 7.0 Albumin 3.6
--- NOTE | 2024-10-12 09:07 | P.DS_ITS ---
DS: Admitting Diagnosis Discharge Date 10/12/24 DS: Summary Time Spent with Patient Time attestation: Total time spent providing and/or coordinating discharge services: DS: Data Data Completed and Pending Labs on day of discharge: Labs from last 24 hours 10/12/24 10/11/24 10/11/24 08:47 08:19 08:14 WBC 4.7 4.9 RBC 4.17 L 4.23 L Hgb 13.7 L 14.2 Hct 41.1 L 42.1 MCV 98.6 99.5 MCH 32.9 33.6 MCHC 33.3 33.7 RDW 14.0 14.1 Plt Count 143 L 144 L MPV 9.6 10.7 H Immature Gran % (Auto) 0.6 H 0.4 Neut % (Auto) 63.1 53.6 Lymph % (Auto) 25.4 27.6 [place] % (Auto) 7.8 16.0 H Eos % (Auto) 2.3 1.6 Baso % (Auto) 0.8 0.8 Lymph # (Auto) 1.20 1.35 [place] # (Auto) 0.4 0.8 H Eos # (Auto) 0.1 0.1 Baso # (Auto) 0.0 0.0 Abs Immat Gran (auto) 0.03 0.02 Absolute Neuts (auto) 3.0 2.6 Absolute Nucleated RBC 0.000 0.000 Nucleated RBC % 0.0 0.0 Sodium 137 139 Potassium 3.6 3.3 L Chloride 107 104 Carbon Dioxide 27 32 H Anion Gap 3 L 3 L BUN 7 L 11 Creatinine 0.70 0.70 Estim Creat Clear Calc 136 135 Estimated GFR > 60 > 60 Glucose 159 H 96 Calcium 8.5 9.1 Total Bilirubin 1.0 AST 27 ALT 20 Alkaline Phosphatase 78 Total Protein 7.0 Albumin 3.6 Discharge Plan Discharge Consulting providers: Eric Oconnell Patient Instructions: Apixaban (By mouth), Pain Management (DC) Patient Language: Armenian Discharge Medications: No Action folic acid 1 mg tablet 1 mg PO DAILY Qty: 30 0RF thiamine HCl (vitamin B1) 100 mg Tablet 100 mg PO DAILY ferrous sulfate 325 mg (65 mg iron) Tablet 325 mg PO DAILY Xifaxan 550 mg tablet 550 mg PO BID spironolactone [Aldactone] 50 mg tablet 100 mg PO DAILY furosemide [Lasix] 20 mg tablet 60 mg PO BID sucralfate 100 mg/mL suspension 10 ml PO TID diclofenac sodium 1 % Gel 2 g TOPICAL BID PRN (Reason: Pain) Rx Instructions: ANYWHERE ON THE BODY magnesium oxide 400 mg tablet 400 mg PO HS propranolol 10 mg tablet 10 mg PO BID Eliquis DVT-PE Treat 30D Start 5 mg (74 tabs) tablets,dose pack See Rx Instructions .ROUTE .COMPLEX Qty: 74 0RF Rx Instructions: orally per package directions lidocaine [Aspercreme (lidocaine)] 4 % Adhesive Patch,Medicated 1 patch TOPICAL DAILY Rx Instructions: Apply to Rt. Upper quadrant of abdomen Lactobacillus acidophilus Tablet 1,000 mmu cells PO BID Biofreeze (menthol) 5 % Adhesive Patch,Medicated 1 patch TOPICAL DAILY Rx Instructions: 1 patch to abdomen haloperidol 5 mg tablet 2.5 mg PO BID gabapentin 400 mg capsule 400 mg PO TID simethicone 80 mg Tablet,Chewable 80 mg PO BID PRN (Reason: Abdominal Discomfort) orohqdve-kvctr-trlnwtb-diperod Ointment 1 ea TOPICAL QID lidocaine HCl [Aspercreme (lidocaine HCl)] 4 % cream 1 applic topical DAILY calcium carbonate [Antacid (calcium carbonate)] 200 mg calcium (500 mg) t ablet,chewable 200 mg PO TID alum-mag hydroxide-simeth [Advanced Antacid-[place]] 200-200-20 mg/5 mL suspension 30 ml PO QID PRN (Reason: indigestion) lorazepam 1 mg tablet 1 mg PO Q6H hydrocodone-acetaminophen 10-325 mg tablet 1 tablet PO Q6H PRN (Reason: pain) melatonin 3 mg Tablet 3 mg PO HS acetaminophen [Acetaminophen Extra Strength] 500 mg Tablet 1,000 mg PO Q6H PRN (Reason: Pain) calcium carbonate 500 mg calcium (1,250 mg) Tablet,Chewable 500 mg PO TID Rx Instructions: With Meals cholecalciferol (vitamin D3) 125 mcg (5,000 unit) Tablet 125 mcg PO DAILY potassium chloride 20 mEq Tablet Extended Release 20 meq PO DAILY trazodone 50 mg tablet 50 mg PO QHS prazosin 1 mg capsule 1 mg PO QID ondansetron HCl 4 mg Tablet 4 mg PO Q8H PRN (Reason: nausea/vomiting) bupropion HCl 100 mg tablet 100 mg PO TID lactulose 10 gram/15 mL solution 30 ml PO TID buspirone 5 mg tablet 15 mg PO TID baclofen 10 mg tablet 10 mg PO BID hydroxyzine HCl 25 mg tablet 25 mg PO TID apixaban 5 mg tablet 5 mg PO BID Qty: 30 0RF acetaminophen 650 mg tablet extended release 650 mg PO Q8H PRN (Reason: pain) Qty: 20 0RF Date of admission: 10/10/24 09:29 Primary Care Provider: Teodoro Lopez Admitting Provider: Manuel Dorsey V. Attending physician on admission: Manuel Dorsey V. Condition: Stable
[2024-10-12] MEDS: HYDROcodone/acetaminophen (*CRX) 10-325 MG TABLET 1 TAB PO (12:20)
--- OUTSIDE RECORDS SUMMARY | 2024-10-19 20:12 | XMS_ITS | Encounter Summary ---
Author Organization [facility] Address [address] [place] [address] Care Team Providers Care Cognos Developer Name Role Phone Eric Oconnell MD Unavailable [phone] Gregorio James MD Primary Care Provider [phone] Reason for Visit * Reason Onset Date Comments Pain Abdominal 03/28/2024 Encounter Details Date Type Department Care Team (Late st Contact Info) Description 03/28/2024 Telephone [facility] - [address] [facility] [place] [id number] Tika Bull RN Pain Abdominal Social History Tobacco Use Types Packs/Day Years Used Date Smoking Tobacco: Every Day Cigarettes 0.3 10 Started: 05/2013; Last attempted to quit: 05/2023 Smokeless Tobacco: Never Alcohol Use Standard Drinks/Week Comments Not Currently 0 (1 standard drink = 0.6 oz pure alcohol) occasional- last drink was Friday 12/15 AUDIT-C Answer Date Recorded Q1: How often do you have a drink containing alc ohol? Never 12/18/2021 Average Number of Drinks Not on file 022 Frequency of Binge Drinking Not on file 11/26 PHQ-2 Answer Date Recorded Patient Health Questionnaire-2 Score 0 11/17/2023 Hunger Vital Sign Answer Date Recorded Within the past 12 months, y ou worried that your food would run out before you got the money to buy more. Never true 12/18/19 22 Within the past 12 months, t he food you bought just didn't last and you didn't have money to get more. Never true 12/18/2021 Sex and Gender Information Value Date Recorded Sex Assigned at Not on file Gender Identity Not on file Sexual Orientation Not on file documented as of this encounter Functional Status Functional Status Response Date of Assess ment Is person deaf or have serious hearing difficult y? No 06/18/2022 Is person blind or have serious difficulty seein g? No 06/18/2022 Does person have serious dif ficulty walking/climbing stairs? Yes 06/18/2022 Does person have difficulty dressing/bathing? Ye s 06/18/2022 Does person have difficulty doing errands alone? Yes 06/18/2022 Cognitive Status Response Date of Assessm ent Does person have difficulty concentrating/remembering/making decisions? No 06/18/2022 documented as of this encounter Miscellaneous Notes * Telephone Encounter - Myesha Romeo RN - 03/28/2024 4:28 PM CDT Pt called clinic again requesting something be faxed to the facility he resides in stating I can go to the hospital . This nurse informed pt that he should not need a note giving permission for him to go to the hospital. Pt spoke to a person in the background that he identified as the nurse . Pt requested the facility nurse speak to this nurse so I can go to the hospital . The facility nurse was heard telling the pt that I don't have time for this followed by I'm not going to send you to the hospital . The nurse in the background was heard asking pt, did you tell her you just had labs done . Pt again requested the background person take the phone to which she stated no . This nurse instructed pt that if he needs to go to the hospital then he should hang up the phone and call 911. Phone call was disconnected at this time. This nurse contacted [facility] and requested to speak with the DON or MARKETING DATA SPECIALIST. Sports Doctor stated they were both gone for the day so this nurse requested to speak to Revenue Field Auditor. This nurse was placed on hold for an extended period of time and then call disconnected. Second phone call made by this nurse to facility went unanswered. * Telephone Encounter - Tika Bull RN - 03/28/2024 3:50 PM CDT Patient is calling and states he has abdominal pain on his right side that goes around to his back and up to his shoulder blades. States his pain is currently a 9/10, states he took a [place] about an hour ago. States he is having dark stools and spitting up dark blood when he brushes his teeth. States he also has swelling in his abdomen and is nauseated. Denies any drinking. Instructed patient to come into ER for evaluation, is asking for direct admission. Informed patient that direct admission may not be possible.States he will come to ER as soon as he can. 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 [address] [place] [phone] 01/08/2025 9:00 AM CDT Office Visit [facility] - GI [address] [facility] [place] [phone] Amos Pabon MD [address] [place] [address] [place] [address] documented as of this encounter Goals Goal Patient Goal Type Associated Problems Recent Progress Patient-Stated? Author Medication Management General On track( 023 11:40 AM CDT) Sheridan Petersen RN Note: Expected end date: Ongoing Interventions: Take all medications as prescribed Let your doctor know right away about any changes in your medications Make sure to request a refill of your medication at least one week prior to your last dose documented as of this encounter Visit Diagnoses Not on filedocumented in this encounter Care Teams Cognos Developer Relationship Specialty Start Date End Date Gregorio James MD [address] [place] [phone] PCP - General 08/11/22 05/16/24 Eric Oconnell MD Hospitalist 10/10/21 documented as of this encounter
--- OUTSIDE RECORDS SUMMARY | 2024-10-19 20:12 | XMS_ITS | Encounter Summary ---
Author Organization [facility] Address [address] [facility] [place] [address] Care Team Providers Care Pharmacy Scheduler Name Role Phone Eric Oconnell MD Unavailable [phone] Teodoro Lopez Primary Care Provider Unavailabl e Encounter Details Date Type Department Care Team (Latest Contact Info) Description 05/17/2024 11:00 AM CDT - 05/17/2024 11:59 PM CDT Hospital Encounter [facility] - Orthopedics [address], [address] [place] [phone] Toño Cabrera MD [address] [place] [address] Discharge Disposition: Home or Self Care Social History Tobacco Use Types Packs/Day Years [...] No 06/18/2022 documented as of this encounter Medications at Time of Discharge Medication Sig Dispensed Refills Start Date End Date acetaminophen (Tylenol) 500 MG tablet Take 1 (one) tablet by mouth every 6 hours as needed baclofen (LIORESAL) 10 MG tablet Take 2 (two) tablets by mouth 2 times daily May cause drowsiness. buPROPion (Wellbutrin) 75 MG tablet Take 1 (one) tablet by mouth once daily 06/25/2023 busPIRone (BUSPAR) 5 MG tablet Take 1 (one) tablet by mouth 2 times daily Rober-Gest Antacid 500 MG chew tablet Take 1 (one) tablet by mouth 3 times daily with meals 11/13/2022 diazePAM (Valium) 2 MG tablet Take 1 (one) tablet by mouth 3 times daily as needed for Anxiety diclofenac sodium (Voltaren) 1 % gel Apply to affected area as needed ferrous sulfate 325 (65 FE) MG tablet Take 1 (one) tablet by mouth once daily folic acid (FOLVITE) 1 MG tablet Take 1 (one) tablet by mouth once daily furosemide (Lasix) 40 MG tablet Take 1 (one) tablet by mouth 2 times daily 08/25/2022 gabapentin (Neurontin) 400 MG capsule Take 1 (one) capsule by mouth 3 times daily 05/28/2023 HYDROcodone-acetaminoph en ([place]) 5-325 MG tablet Take 1 (one) tablet by mouth every 6 hours as needed for Pain hydrOXYzine HCl (Atarax) 25 MG tablet Take 1 (one) tablet by mouth 3 times daily 06/07/2023 Lactobacillus Acid-Pectin (Acidophilus/Pectin) capsule Take 1 (one) capsule by mouth 2 times daily lactulose (Enulose) 10 GM/15ML solution Take 30 mL by mouth 3 times daily 08/16/2022 lidocaine (Lidoderm) 5 % patch Apply 1 (one) patch to skin once daily Apply patch to most painful area and remove after 12 hours. May reapply a new patch 12 hours later. 5 patch 03/29/2024 LORazepam (Ativan) 0.5 MG tablet 05/08/2024 LORazepam (Ativan) 1 MG tablet 04/19/2024 melatonin 3 MG tablet Take 2 (two) tablets by mouth nightly as needed ondansetron (Zofran) 4 MG tablet Take 1 (one) tablet by mouth every 8 hours as needed pantoprazole EC (Protonix) 40 MG tablet 05/10/2024 potassium chloride ER (Klor-Con M) 20 MEQ tablet Take 1 (one) tablet by mouth once daily 08/24/2022 prazosin (Minipress) 1 MG capsule 05/07/2024 propranolol (INDERAL) 10 MG tablet Take 1 (one) tablet by mouth 2 times daily QUEtiapine (SEROquel) 25 MG tablet Take 0.5 (one-half) tablet by mouth 3 times daily 06/09/2023 simethicone (Mylicon) 80 MG chew tablet Take 1 (one) tablet by mouth 3 times daily, after meals 03/29/2024 spironolactone (Aldactone) 100 MG tablet Take 1 (one) tablet by mouth once daily 07/30/2022 sucralfate (Carafate) 1 GM/10ML suspension Take 10 mL by mouth 3 times daily 06/03/2023 thiamine (Vitamin B-1) 100 MG tablet Take 1 (one) tablet by mouth once daily traZODone (Desyrel) 50 MG tablet Take 1 (one) tablet by mouth at bedtime vitamin D3 (Cholecalciferol) 125 MCG (5000 UT) capsule Take 1 (one) capsule by mouth once daily rifAXIMin (Xifaxan) 550 MG tablet Take 1 (one) tablet by mouth 2 times daily 60 tablet 11 02/25/2024 06/01/2024 documented as of this encounter Plan of Treatment Upcoming Encounters Date Type Department Care Team (Late st Contact Info) Description 11/29/2024 8:30 AM 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 Office Visit [facility] - Orthopedic Surgery [address] [facility] [place] [address] Toño Cabrera MD [address] [place] [address] 01/08/2025 8:00 AM CDT Appointment [facility] [address] [place] [phone] 01/08/2025 9:00 AM CDT Office Visit [facility] - GI [address] [facility], [place] [phone] Amos Pabon MD [address] DIV [place] [address] documented as of this encounter Goals Goal Patient Goal Type Associated Problems Recent Progress Patient-Stated? Author Medication Management General On track( 023 11:40 AM CDT) No Sheridan Ng, RN Note: Expected end date: Ongoing Interventions: Take all medications as prescribed Let your doctor know right away about any changes in your medications Make sure to request a refill of your medication at least one week prior to your last dose documented as of this encounter Procedures Procedure Name Priority Date/Time Associated Diagnosis Comments XR LUMBAR SPINE 2 OR 3VW Routine 05/17/2024 12:11 PM CDT Primary osteoarthritis of both knees documented in this encounter Results * XR LUMBAR SPINE 2 OR 3VW (05/17/2024 12:11 PM CDT) Anatomical Region Laterality Modality Spine Radiographic Юлия ging 05/17/2024 12:2 9 PM CDT Narrative 05/17/2024 1:19 PM CDT PROCEDURE: ??XR LUMBAR SPINE 3VW, DATE/TIME OF EXAM: ??05/17/2024 12:11 PM, LOCATION ??[facility] INDICATION: M17.0: Bilateral primary osteoarthritis of knee. FINDINGS: ?? There is overall preservation of vertebral body height. Left convex scoliosis centered at L3-4 is present. The visualized sacroiliac joints are normal. DIAGNOSIS: Left convex scoliosis. Edited by Carolina Brown on 05/17/2024 1:03 PM > Interpreting Provider: Sagar Rizo MD on 05/17/2024 1:19 PM Procedure Note Sagar Rizo MD - 05/17/2024 PROCEDURE: XR LUMBAR SPINE 3VW, DATE/TIME OF EXAM: 05/17/2024 12:11 PM, LOCATION [facility] INDICATION: M17.0: Bilateral primary osteoarthritis of knee. FINDINGS: There is overall preservation of vertebral body height. Left convex scoliosis centered at L3-4 is present. The visualized sacroiliac jointsare normal. DIAGNOSIS: Left convex scoliosis. Edited by Carolina Brown on 05/17/2024 1:03 PM > Interpreting Provider: Sagar Rizo MD on 05/17/2024 1:19 PM Toño Cabrera MD DIAGNOSTIC IMAGING ORDERABLES documented in this encounter Visit Diagnoses Diagnosis Primary osteoarthritis of both knees Primary localized osteoarthrosis, lower leg documented in this encounter Care Teams Pharmacy Scheduler Relationship Specialty Start Date End Date Teodoro Lopez PCP - General 05/17/24 Eric Oconnell MD Hospitalist 10/10/21 documented as of this encounter
--- OUTSIDE RECORDS SUMMARY | 2024-10-19 20:12 | XMS_ITS | Encounter Summary ---
Author Organization [facility] Address [address] [facility] [address] Care Team Providers Care Environmental Health Safety Manager Name Role Phone Eric Oconnell MD Unavailable [phone] Teodoro Lopez Primary Care Provider Unavailabl e Reason for Visit * Reason Comments Refill Request Encounter Details Date Type Department Care Team (Late st Contact Info) Description 06/01/2024 Refill [facility] - [address] [phone] Nahed Quinonez, ALFREDO Refill Request Social History Tobacco Use Types Packs/Day Years [...] No 06/18/2022 documented as of this encounter Plan of Treatment Upcoming Encounters Date Type Department Care Team (Late st Contact Info) Description 11/29/2024 8:30 AM 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 Author Medication Management General On track( 023 11:40 AM CDT) No Sheridan Ng RN Note: Expected end date: Ongoing Interventions: Take all medications as prescribed Let your doctor know right away about any changes in your medications Make sure to request a refill of your medication at least one week prior to your last dose documented as of this encounter Visit Diagnoses Not on filedocumented in this encounter Care Teams Environmental Health Safety Manager Relationship Specialty Start Date End Date Teodoro Lopez PCP - General 05/17/24 Eric Oconnell MD Hospitalist 10/10/21 documented as of this encounter
--- OUTSIDE RECORDS SUMMARY | 2024-10-19 20:12 | XMS_ITS | Encounter Summary ---
Author Organization [facility] Address [address] [facility] [place] [address] Care Team Providers Care Communications Administrator Name Role Phone Eric Oconnell MD Unavailable [phone] Gregorio James MD Primary Care Provider Reason for Referral * Durable Medical Equipment (Routine) - Closed Specialty Diagnoses / Procedures Referred By Rod young Referred To Contact DME Services Diagnoses Primary osteoarthritis of both knees Closed fracture of left hip, sequela Toño Cabrera MD [address] [place] [address] Referral ID Status Reason Start Date Expiration Date V isits Requested Visits Authorized [id number] Closed Specialty Services Required 02/16/2024 02/15/2025 1 1 Reason for Visit * Reason Comments Therapeutic Injection Bilat knee injecti on Encounter Details Date Type Department Care Team (Latest Contact Info) Description 02/16/2024 10:45 AM CDT Office Visit [facility] - Orthopedic Surgery [address] [place] [phone] Toño Cabrera MD [address] [place] [id number] Primary osteoarthritis of both knees (Primary Dx); Closed fracture of left hip, sequela Social History Tobacco Use Types Packs/Day Years [...] No 06/18/2022 documented as of this encounter Patient Instructions * Patient Instructions* Елена Canas RN - 02/11/2024 1:32 PM CDT Елена Canas RN BSN [employer] Joint [employer]construction Dept of Orthopedic Surgery [facility] [employer] Messaging - Dr. Toño Cabrera Email: [email or web address] documented in this encounter Progress Notes * Toño Cabrera MD - 02/16/2024 10:45 AM CDT Patient returns for repeat bilateral knee injections. He is working on finding a dentist so that hortensia get clearance for hip arthroplasty for his neglected femoral neck fracture. Physical exam: Examination of both knees reveals intact skin without signs of infection. X-rays: None obtained Assessment: Bilateral knee osteoarthritis here for repeat injections Plan: We will proceed with repeat bilateral knee injections today. Please see the procedure notes for further details. We will see patient back as needed. documented in this encounter Procedure Notes * Toño Cabrera MD - 02/16/2024 10:34 AM CDTAssociated Order(s): PROC INJECTION JOINT (SMALL/INTERMED/MAJOR) Procedure(s): ME DRAIN/INJECT LARGE JOINT/BURSA Pre-Procedure Diagnose(s): Primary osteoarthritis of both knees Orthopaedic Surgery Procedure Note Lukas Diaz [id number] Diagnosis: Left knee pain Procedure: Injection of corticosteroid into the left knee Indications: Lukas Diaz is a 38 year old male who has left knee pain and arthritis. Informed consent was obtained for the procedure Risks and adverse drug reaction were discussed. A time out was performed for patient safety. Procedure Details: The patient was informed of his condition, and the potential benefits of injection of steroid. The patient was counseled as to the risks of the procedure and allergies were reviewed. The patient was understanding and agreeable. The patient was placed into the appropriate position. The area was prepped with betadine and alcohol. Utilizing the peripatellar portal, the skin, subcutaneous, and pericapsular tissues were injectedwith 3 cc 1% lidocaine without epinephrine using a 21Ga needle. The patient's left knee joint was then entered. Confirmation of location inside the joint was evidenced by aspiration of straw colored synovial fluid. 2 cc of Kenalog/3cc lidocaine was injected into the joint. The needle was removed and the needle site cleaned with alcohol and dressed with a sterile bandage. The procedure was performed under sterile conditions. The patient tolerated the procedure well. Remainder of plan per note. Injection performed by: Resident on service Blood Loss: Minimal I was present for the entire procedure Toño Cabrera MD 02/16/2024 10:34 AM * Toño Cabrera MD - 02/16/2024 10:34 AM CDTAssociated Order(s): PROC INJECTION JOINT (SMALL/INTERMED/MAJOR) Procedure(s): ME DRAIN/INJECT LARGE JOINT/BURSA Pre-Procedure Diagnose(s): Primary osteoarthritis of both knees Orthopaedic Surgery Procedure Note Lukas Diaz [id number] Diagnosis: Right knee pain Procedure: Injection of corticosteroid into the right knee Indications: Lukas Diaz is a 38 year old male who has right knee pain and arthritis. Informed consent was obtained for the procedure Risks and adverse drug reaction were discussed A time out was performed for patient safety Procedure Details: The patient was informed of his condition, and the potential benefits of injection of steroid. The patient was counseled as to the risks of the procedure and allergies were reviewed. The patient was understanding and agreeable. The patient was placed into the appropriate position. The area was prepped with betadine and alcohol. Utilizing the peripatellar portal, the skin, subcutaneous, and pericapsular tissues were injected with 3 cc 1% lidocaine without epinephrine using a 21 Ga needle. The patient's right knee was then entered. Confirmation of location inside the joint was evidenced by aspiration of straw colored synovial fluid. 2 cc of Kenalog/3cc lidocaine was injected into the joint. The needle was removed and the needle site cleaned with alcohol and dressed with asterile bandage. The procedure was performed under sterile conditions. The patient tolerated the procedure well. Remainder of plan per note. Injection performed by: Resident on service Blood Loss: Minimal I was present for the entire procedure Toño Cabrera MD 02/16/2024 10:34 AM documented in this encounter Plan of Treatment Upcoming Encounters Date Type Department Care Team (Late st Contact Info) Description 11/29/2024 8:30 AM FISH AGENT Office Visit [facility] - Orthopedic Surgery [address] [place] [phone] Toño Cabrera MD [address] [place] [address] 01/08/2025 8:00 AM CDT Appointment [facility] [address] [place] [address] 01/08/2025 9:00 AM CDT Office Visit [facility] - GI [address] [facility], [place] [phone] Amos Pabon MD [address] [facility] [address] [place] [address] Scheduled Referrals Name Type Priority Associated Diagnoses Orde r Schedule AMB REFERRAL FOR DME Outpatient Referral Routine Primary osteoarthritis of both knees Closed fracture of left hip, sequela 1 Occurrences starting 02/16/2024 until 02/15/2025 documented as of this encounter Goals Goal [...] Procedure Name Priority Date/Time Associated Diagnosis Comments ME DRAIN/INJECT LARGE JOINT/BURSA Routine 02/16/2024 10:34 AM CDT Primary osteoarthritis of both knees ME DRAIN/INJECT LARGE JOINT/BURSA Routine 02/16/2024 10:34 AM CDT Primary osteoarthritis of both knees documented in this encounter Results * ME DRAIN/INJECT LARGE JOINT/BURSA (02/16/2024 10:34 AM CDT) Narrative Toño Cabrera MD - 02/16/2024 10:34 AM CDT Toño Cabrera MD ? 02/16/2024 11:34 AM Orthopaedic Surgery Procedure Note Lukas Diaz [id number] Diagnosis: Left knee pain Procedure: Injection of corticosteroid into the left knee Indications: Lukas Diaz is a 38 year old male who has left knee pain and arthritis. Informed consent was obtained for the procedure Risks and adverse drug reaction were discussed. A time out was performed for patient safety. Procedure Details: The patient was informed of his condition, and the potential benefits of injection of steroid. The patient was counseled as to the risks of the procedure and allergies were reviewed. The patient was understanding and agreeable. ?? The patient was placed into the appropriate position. The area was prepped with betadine and alcohol. Utilizing the peripatellar portal, the skin, subcutaneous, and pericapsular tissues were injectedwith 3 cc 1% lidocaine without epinephrine using a 21 Ga needle. The patient's left knee joint was then entered. Confirmation of location inside the joint was evidenced by aspiration of straw colored synovial fluid. 2 cc of Kenalog/3cc lidocaine was injected into the joint. The needle was removed and the needle site cleaned with alcohol and dressed with a sterile bandage. The procedure was performed under sterile conditions. ?? The patient tolerated the procedure well. Remainder of plan per note. Injection performed by: ??Resident on service ? Blood Loss: ??Minimal I was present for the entire procedure Toño Cabrera MD 02/16/2024 10:34 AM Toño Cabrera MD PROCEDURE/MINOR TRUDI GICAL ORDERABLES * ME DRAIN/INJECT LARGE JOINT/BURSA (02/16/2024 10:34 AM CDT) Narrative Toño Cabrera MD - 02/16/2024 10:34 AM CDT Toño Cabrera MD ? 02/16/2024 11:34 AM Orthopaedic Surgery Procedure Note Lukas Diaz [id number] Diagnosis: Right knee pain Procedure: Injection of corticosteroid into the right knee Indications: Lukas Diaz is a 38 year old male who has right knee pain and arthritis. Informed consent was obtained for the procedure Risks and adverse drug reaction were discussed A time out was performed for patient safety Procedure Details: The patient was informed of his condition, and the potential benefits of injection of steroid. The patient was counseled as to the risks of the procedure and allergies were reviewed. The patient was understanding and agreeable. ?? The patient was placed into the appropriate position. The area was prepped with betadine and alcohol. Utilizing the peripatellar portal, the skin, subcutaneous, and pericapsular tissues were injected with 3 cc 1% lidocaine without epinephrine using a 21 Ga needle. The patient's right knee was then entered. Confirmation of location inside the joint was evidenced by aspiration of straw colored synovial fluid. 2 cc of Kenalog/3cc lidocaine was injected into the joint. The needle was removed and the needle site cleaned with alcohol and dressed with a sterile bandage. The procedure was performed under sterile conditions. ??The patient tolerated the procedure well. Remainder of plan per note. ?? Injection performed by: ??Resident on service ? Blood Loss: ??Minimal I was present for the entire procedure Toño Cabrera MD 02/16/2024 10:34 AM Toño Cabrera MD PROCEDURE/MINOR TRUDI GICAL ORDERABLES documented in this encounter Visit Diagnoses Diagnosis Primary osteoarthritis of both knees- Primary Primary localized osteoarthrosis, lower leg Closed fracture of left hip, sequela documented in this encounter Administered Medications Inactive Administered Medications - up to 3 most recent administrations Medication Order MAR Action Action Date Dose Rate Site lidocaine (Xylocaine) 1 % injection Infiltration, ONCE, 1 dose, On Wed02/16/24 at 1045 $ Given 02/16/2024 10:32 AM CDT Right Knee lidocaine (Xylocaine) 1 % injection Infiltration, ONCE, 1 dose, On Wed02/16/24 at 1045 $ Given 02/16/2024 10:32 AM CDT Left Knee triamcinolone acetonide (Kenalog-40) injection 80 mg 80 mg, Intra-articular, ONCE, 1 dose, On Wed02/16/24 at 1045, Shake well before using. $ Given 02/16/2024 10:33 AM CDT 80 mg Righ t Knee triamcinolone acetonide (Kenalog-40) injection 80 mg 80 mg, Intra-articular, ONCE, 1 dose, On Wed02/16/24 at 1045, Shake well before using. $ Given 02/16/2024 10:33 AM CDT 80 mg Left Knee documented in this encounter Care Teams Communications Administrator Relationship Specialty Start Date End Date Gregorio James MD [address] [phone] PCP - General 08/11/22 05/16/24 Eric Oconnell MD Hospitalist 10/10/21 documented as of this encounter
--- OUTSIDE RECORDS SUMMARY | 2024-10-19 20:12 | XMS_ITS | Encounter Summary ---
Author Organization [facility] Address [address] [facility] [place] [address] Care Team Providers Care [facility] Name Role Phone Eric Oconnell MD Unavailable [phone] Gregorio James MD Primary Care Provider [phone] Reason for Visit * Reason Onset Date Comments Follow-up 03/15/2024 Encounter Details Date Type Department Care Team (Late st Contact Info) Description 03/15/2024 Telephone [facility]ph[facility] [address] [facility] [place] [phone] Ellyn Payne RN Follow-up Social History Tobacco Use Types Packs/Day Years [...] encounter Miscellaneous Notes * Telephone Encounter - Ellyn Payne RN - 03/15/2024 11:14 AM CDT Pt returning call regarding change in appointment. Pt stated he resides in facility. Requested change of address and phone number for contact. (Changed on demographic by this nurse). Spoke with nursePaige at facility. Given information on change in appointment with Dr. Pabon and Ultrasound for 05/19/24 from 05/07/24. Mailed appointment reminder, attn Transportation to facility. 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 Office Visit [facility] - Orthopedic Surgery [address] [facility] [place] [address] Toño Cabrera MD [address] [facility] [address] [place] [address] 01/08/2025 8:00 AM CDT Appointment [facility] [address] [place] [address] 01/08/2025 9:00 AM CDT Office Visit [facility] - GI [address] [facility], [place] [phone] Amos Pabon MD [address] [place] [address] documented as of this encounter Goals Goal Patient Goal Type Associated Problems Recent Progress Patient-Stated? Author Medication Management General On track( 023 11:40 AM CDT) Sheridan Petersen, RN Note: Expected end date: Ongoing Interventions: Take all medications as prescribed Let your doctor know right away about any changes in your medications Make sure to request a refill of your medication at least one week prior to your last dose documented as of this encounter Visit Diagnoses Not on filedocumented in this encounter Care Teams [facility] Relationship Specialty Start Date End Date Gregorio James MD [address] [place] [phone] PCP - General 08/11/22 05/16/24 Eric Oconnell MD Hospitalist 10/10/21 documented as of this encounter
--- OUTSIDE RECORDS SUMMARY | 2024-10-19 20:12 | XMS_ITS | Encounter Summary ---
Author Organization [facility] Address [address] [place] [address] Care Team Providers Care Squeegee Finisher Name Role Phone Eric Oconnell MD Unavailable [phone] Gregorio James MD Primary Care Provider [phone] Encounter Details Date Type Department Care Team (Late st Contact Info) Description 03/29/2024 Orders Only [facility] COORDINATION [address] [place] [phone] Kristen Dong, [facility] Social History Tobacco Use Types Packs/Day Years [...] st Contact Info) Description 11/29/2024 8:30 AM CORPORATE 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, [place] [address] Amos Pabon MD [address] [place] [address] [place] [address] documented as of this encounter Goals Goal [...] on filedocumented in this encounter Care Teams Squeegee Finisher Relationship Specialty Start Date End Date Gregorio James MD [address] [address] PCP - General 08/11/22 05/16/24 Eric Oconnell MD Hospitalist 10/10/21 documented as of this encounter
--- OUTSIDE RECORDS SUMMARY | 2024-10-19 20:12 | XMS_ITS | Encounter Summary ---
Author Organization [facility] Address [address] [facility] [place] [address] Care Team Providers Care Contract Writer Name Role Phone Eric Oconnell MD Unavailable [phone] Gregorio James MD Primary Care Provider [phone] Reason for Referral * Radiology Services (Routine) - Closed Specialty Diagnoses / Procedures Referred By Contac t Referred To Contact Diagnoses Cirrhosis of liver with ascites, unspecified hepatic cirrhosis type (HCC) Procedures US ABDOMEN LIMITED Amos Pabon MD [address] [place] [address] [address] [place] [address] [facility] [address] [place] [address] Referral ID Status Reason Start Date Expiration Date Visits Re quested Visits Authorized [id number] Closed 08/16/2023 08/15/2024 1 1 Reason for Visit * Reason Comments Cirrhosis Encounter Details Date Type Department Care Team (Late st Contact Info) Description 08/16/2023 11:30 AM CDT Office Visit [facility] - GI [address] [place] [address], [place] [phone] Amos Pabon MD [address] [place] [address] [address] [place] [address] Cirrhosis of liver with ascites, unspecified hepatic cirrhosis type (HCC) (Primary Dx) Social History Tobacco Use Types Packs/Day Years Used Date Smoking Tobacco: Every Day Cigarettes 0.3 10 Started: 05/2013; Last attempted to quit: 05/2023 Smokeless Tobacco: Never Tobacco Cessation:Ready to Q uit: Not Asked Alcohol Use Standard Drinks/Week Comments Not Currently 0 (1 standard drink = 0.6 oz pure alcohol) occasional- last drink was Friday 12/15 AUDIT-C Answer Date Recorded Q1: How often do you have a drink containing alc ohol? Never 12/18/2021 Average Number of Drinks Not on file 022 Frequency of Binge Drinking Not on file 11/26 Hunger Vital Sign Answer Date Recorded Within [...] on file documented as of this encounter Last Filed Vital Signs Vital Sign Reading Time Taken Comments Blood Pressure 131/97 08/16/2023 11:34 AM CDT Pulse 76 08/16/2023 11:34 AM CDT Temperature 36.8 ??C (98.3 ??F) 08/16/2023 11:34 AM C DT Respiratory Rate 18 08/16/2023 11:34 AM CDT Oxygen Saturation 97% 08/16/2023 11:34 AM CDT Inhaled Oxygen Concentration - - Weight 90.3 kg (199 lb) 08/16/2023 11:34 AM CDT Height - - Body Mass Index 31.17 02/19/2023 10:44 AM CDT documented in this encounter Functional Status Functional Status Response [...] No 06/18/2022 documented as of this encounter Progress Notes * Amos Pabon MD - 08/16/2023 11:29 AM CDT Hepatology Clinic Note Lukas Diaz 37 year old male was seen in clinic for follow up. Since the last clinic visit patient has had hip surgery done. Tolerated it well. Follows with Ortho. Still in wheelchair and staysat SNF. 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 At SNF gets meds regularly. No ongoing liver sx. Today, patient mentioned no episodes of GIB, HE. Review of Systems - Negative except knee and hip pain. Complete 10 point ROS was reviewed with the patient and was otherwise negative. Positives are mentioned above. has a past medical history of Anxiety disorder, Depression, Fracture, Hypertension, and Insomnia. has a past surgical history that includes endoscopy, upper (N/A, 03/05/2022) and endoscopy, upper (N/A, 06/18/2022). Vitals: 08/16/23 1134 BP: 131/97 Pulse: 76 Resp: 18 Temp: 98.3 ??F (36.8 ??C) SpO2: 97% Weight: 90.3 kg (199 lb) Wt Readings from Last 3 Encounters: 08/16/23 90.3 kg (199 lb) 02/19/23 87.7 kg (193 lb 6.4 oz) 06/18/22 79.1 kg (174 lb 6.4 oz) General: well appearing Head: atraumatic Eyes: Sclera/Conjunctiva: are noted to be clear bilaterally. Nose: clear Oropharynx: mucous membranes are moist Neck: normal ROM Cardiovascular: RRR Chest: good air movement Abdomen: soft, non-tender and non-distended Musculoskeletal: No clubbing, cyanosis or edema Skin: no rashes Neuro: alert, oriented, normal speech, no focal findings or movement disorder noted Assessment: #1 Decompensated alcohol associated liver cirrhosis, meld score 6, no recent labs available #2 Alcohol use disorder, prior known liver disease and none since April 2021 #3 Ascites/leg edema, resolved with diuretics #4 Hepatic encephalopathy, mild symptoms while on lactulose and rifaximin, also takes multiple psychotropic medications #5 Left hip fracture, s/p hip surgery #6 Episodes of possibly GI bleeding from varices s/p band ligation and on propranolol no follow-up EGD since last banding #7 Anemia, resolved #8 Depression, on multiple medications Recommendations: Update labs. Will need liver US every 6 months. He did not complete his liver US earlier. Still in wheelchair and at SNF. Will not be an appropriate candidate for LT because of social concerns. Advised to restrict salt intake, and alcohol abstinence. Orders Placed This Encounter ??? US ABDOMEN LIMITED ??? ALPHA FETOPROTEIN BLOOD TUMOR MARKER ??? CBC W/O DIFFERENTIAL ??? COMPREHENSIVE METABOLIC PANEL ??? PT-INR ??? HEMOGLOBIN A1C ??? TSH REFLEX FREE T4 Orders are placed for intensive monitoring while on medications (diuretics), which will require dose adjustment and future orders. Additional prior labs were requested to obtain from other health care providers. Please schedule an appointment to be seen in 6 month(s). Follow-up with primary care physician for age-appropriate screening and vaccination. The patient was advised to update us after any labs/testing done locally, or a change in health status. Patient was counseled at length about healthy lifestyle, diet, exercise and to abstain from salt use. Data reviewed: - Medication Sig ??? acetaminophen (Tylenol) 500 MG tablet Take 1 (one) tablet by mouth every 6 hours as needed ??? baclofen (LIORESAL) 10 MG tablet Take 2 (two) tablets by mouth 2 times daily May cause drowsiness. ??? buPROPion (Wellbutrin) 75 MG tablet Take 1 (one) tablet by mouth once daily ??? busPIRone (BUSPAR) 5 MG tablet Take 1 (one) tablet by mouth 2 times daily ??? Rober-Gest Antacid 500 MG chew tablet Take 1 (one) tablet by mouth 3 times daily with meals ??? ferrous sulfate 325 (65 FE) MG tablet Take 1 (one) tablet by mouth once daily ??? folic acid (FOLVITE) 1 MG tablet Take 1 (one) tablet by mouth once daily ??? furosemide (Lasix) 40 MG tablet Take 1 (one) tablet by mouth 2 times daily ??? gabapentin (Neurontin) 400 MG capsule Take 1 (one) capsule by mouth 3 times daily ??? hydrOXYzine HCl (Atarax) 25 MG tablet Take 1 (one) tablet by mouth 3 times daily ??? lactulose (Enulose) 10 GM/15ML solution Take 30 mL by mouth 3 times daily ??? melatonin 3 MG tablet Take 2 (two) tablets by mouth nightly as needed ??? ondansetron (Zofran) 4 MG tablet Take 1 (one) tablet by mouth every 8 hours as needed ??? potassium chloride ER (Klor-Con M) 20 MEQ tablet Take 1 (one) tablet by mouth once daily ??? propranolol (INDERAL) 10 MG tablet Take 1 (one) tablet by mouth 2 times daily ??? QUEtiapine (SEROquel) 25 MG tablet Take 0.5 (one-half) tablet by mouth 3 times daily ??? rifAXIMin (Xifaxan) 550 MG tablet Take 1 (one) tablet by mouth 2 times daily ??? spironolactone (Aldactone) 100 MG tablet Take 1 (one) tablet by mouth once daily ??? sucralfate (Carafate) 1 GM/10ML suspension Take 10 mL by mouth 3 times daily ??? thiamine (Vitamin B-1) 100 MG tablet Take 1 (one) tablet by mouth once daily ??? traMADol (ULTRAM) 50 MG tablet Take 1 (one) tablet by mouth every 6 hours as needed ??? vitamin D3 (Cholecalciferol) 125 MCG (5000 UT) capsule Take 1 (one) capsule by mouth once daily Recent Labs Component Name 02/22/2344902/16/22142501/05/22 0000 12/25/21 0000 12/19/21 0153 12/17/21 2258 WBC 10.4 9.7 7.1 - 7.5 10.1 HGB 16.0 14.6 14.0 - 13.0 12.3 HCT 47.9 43.5 41.6 - 39.1 35.2 PLTCOUNT - 184 - - 198 192 - = values in this interval not displayed. Recent Labs Component Name 02/22/2344902/16/22142501/05/22 0000 12/25/21 0000 12/19/21 0135 12/17/21 2257 BUN 11 9 10 - 9 10 CREATININE - 0.76 - - 0.56* 0.44* NA - 139 - - 134* 131* POTASSIUM 3.6 3.7 4.0 - 3.9 4.4 CL - 98 - - 100 94* CO2 29 31* 23 - 23 25 CALCIUM 8.9 10.4* 9.0 - 9.0 8.8 PROT - 8.9* - - 7.6 8.1 ALB 4.1 4.0 3.2 - 2.7* 3.0* TBILI - 0.5 - - 1.0 1.3* ALKPHOS 86 130 155 - 180* 179* ALT 21 20 27 - 67* 74* AST 22 24 25 - 91* 127* ANIONGAP - 14 - - 15 16 BCR - 12 - - 16 23 OSMOLALITY - 285 - - 276 271 AGRATIO - 0.8* - - 0.6* 0.6* EGFR 80 >90 94 - >90 >90 - = values in this interval not displayed. Recent Labs Component Name 02/22/23 0450 02/16/22 1426 01/05/22 0000 INR 1.0 1.0 1.0 Computed MELD 3.0 unavailable. One or more values for this score either were not found within the given timeframe or did not fit some other criterion. MELD-Na: 6 at 02/22/2023 4:50 AM Calculated from: Serum Creatinine: 0.8 mg/dl (Using min of 1 mg/dl) at 02/22/2023 4:50 AM Serum Sodium: 147 mmol/L (Using max of 137 mmol/L) at 02/22/2023 4:50 AM Total Bilirubin: 0.5 mg/dL (Using min of 1 mg/dL) at 02/22/2023 4:50 AM INR(ratio): 1.0 at 02/22/2023 4:50 AM Patient Active Problem List: Hepatic cirrhosis (CMS/HCC) Chronic left hip pain Tachycardia Closed fracture of left hip (CMS/HCC) Elevated liver enzymes Vitamin D deficiency Nicotine abuse No results found. Report Endoscopy POC Date Value Ref Range Status 06/18/2022 Final Endoscopy Department Report _ Patient Name: Lukas Diaz Procedure Date: 06/18/2022 9:04 AM Date of : 1985 Classification: Outpatient Gender: Male Ethnicity: Not or Race: White _ Providers: Amos Jama MD: Procedure: Upper GI endoscopy Indications: Follow-up of Holt's esophagus, Follow-up of acute gastric ulcer Medications: Monitored Anesthesia Care Description of Procedure: Pre-Anesthesia Assessment: - Pre-procedure physical examination revealed no contraindications to sedation. - After reviewing the risks and benefits, the patient was deemed in satisfactory condition to undergo the procedure. - The anesthesia plan was to use monitored anesthesia care (MAC). - Immediately prior to administration of medications, the patient was re-assessed for adequacy to receive sedatives. After obtaining informed consent, the endoscope was passed under direct vision. Throughout the procedure, the patient's blood pressure, pulse, and oxygen saturations were monitored continuously. The Endoscope was introduced through the mouth, and advanced to the second part of duodenum. The upper GI endoscopy was accomplished without difficulty. The patient tolerated the procedure well. Findings: The esophagus and gastroesophageal junction were examined with white light and narrow band imaging (NBI). There were esophageal mucosal changes consistent with long-segment Holt's esophagus. These changes involved the mucosa at the upper extent of the gastric folds (40 cm from the incisors) extending to the Z-line (33 cm from the incisors). Multiple tongues of salmon-colored mucosa were present at 33 cm and scattered islands of salmon-colored mucosa were present from 33 to 40 cm. The maximum longitudinal extent of these esophageal mucosal changes was 7 cm in length. No biopsies or other specimens were collected for this exam. There is no endoscopic evidence of varices in the distal esophagus. There is no endoscopic evidence of ulceration in the gastric antrum. Moderate portal hypertensive gastropathy was found in the gastric antrum. The duodenal bulb and second portion of the duodenum were normal. Estimated Blood Loss: Estimated blood loss: none. Complications: No immediate complications. Impression: - Esophageal mucosal changes consistent with long-segment Holt's esophagus. No specimens collected. - Portal hypertensive gastropathy. - Normal duodenal bulb and second portion of the duodenum. Recommendation: - Resume previous diet. -Continue PPI BID, reflux precautions - Return to GI clinic as previously scheduled. - Discharge patient to home. - Continue present medications. - Patient has a contact number available for emergencies. The signs and symptoms of potential delayed complications were discussed with the patient. Return to normal activities tomorrow. Written discharge instructions were provided to the patient. - Discharge patient to home (ambulatory). - Follow an antireflux regimen. Attending Participation: I was present and participated during the entire procedure, including non-lee portions. Procedure Code(s): --- Professional --- 08579, Esophagogastroduodenoscopy, flexible, transoral; diagnostic, including collection of specimen(s) by brushing or washing, when performed (separate procedure) Diagnosis Code(s): --- Professional --- K76.6, Portal hypertension K22.70, Holt's esophagus without dysplasia CPT copyright 2019 [employer]. All rights reserved. The codes documented in this report are preliminary and upon life specialist review may be revised to meet current compliance requirements. Amos Pabon, 06/18/2022 9:47:50 AM Note Initiated On: 06/18/2022 9:04 AM Number of Addenda: [address] [phone] 03/05/2022 Final Endoscopy Department Report _ Patient Name: Lukas Diaz Procedure Date: 03/05/2022 9:23 AM Date of : 1985 Classification: Outpatient Gender: Male Ethnicity: Not or Race: White _ Providers: Amos Pbaon Referring MD: Major Kraft (Referring MD) Procedure: Upper GI endoscopy Indications: 2nd degree variceal eradication (following bleed) Medications: Propofol per Anesthesia, See the Anesthesia note for documentation of the administered medications Description of Procedure: Pre-Anesthesia Assessment: - Pre-procedure physical examination revealed no contraindications to sedation. - After reviewing the risks and benefits, the patient was deemed in satisfactory condition to undergo the procedure. - The anesthesia plan was to use monitored anesthesia care (MAC). - Immediately prior to administration of medications, the patient was re-assessed for adequacy to receive sedatives. After obtaining informed consent, the endoscope was passed under direct vision. Throughout the procedure, the patient's blood pressure, pulse, and oxygen saturations were monitored continuously. The GIF-[id number] was introduced through the mouth, and advanced to the second part of duodenum. The upper GI endoscopy was accomplished without difficulty. The patient tolerated the procedure well. Findings: There is no endoscopic evidence of varices in the lower third of the esophagus. LA Grade C (one or more mucosal breaks continuous between tops of 2 or more mucosal folds, less than 75% circumference) esophagitis was found in the distal esophagus. The esophagus and gastroesophageal junction were examined with white light and narrow band imaging (NBI). There were esophageal mucosal changes suggestive of long-segment Holt's esophagus. These changes involved the mucosa at the upper extent of the gastric folds (40 cm from the incisors) extending to the Z-line (33 cm from the incisors). Tongues of salmon-colored mucosa were present and scattered islands of salmon-colored mucosa were present. The maximum longitudinal extent of these esophageal mucosal changes was 7 cm in length. Few non-bleeding superficial gastric ulcers with a clean ulcer base (Jett Class III) were found in the gastric antrum. Biopsies were taken with a cold forceps for Helicobacter pylori testing. The examined duodenum was normal. Estimated Blood Loss: Estimated blood loss: none. Complications: No immediate complications. Impression: - LA Grade C reflux esophagitis. - Esophageal mucosal changes suggestive of long-segment Holt's esophagus. - Non-bleeding gastric ulcers with a clean ulcer base (Jett Class III). Biopsied. - Normal examined duodenum. Recommendation: - Patient has a contact number available for emergencies. The signs and symptoms of potential delayed complications were discussed with the patient. Return to normal activities tomorrow. Written discharge instructions were provided to the patient. - Discharge patient to home (ambulatory). - Resume previous diet. - Continue present medications. - No aspirin, ibuprofen, naproxen, or other non-steroidal anti-inflammatory drugs. - Follow an antireflux regimen. - Await pathology results. - Repeat upper endoscopy in 3 months to check healing. - Return to referring physician at appointment to be scheduled. - The findings and recommendations were discussed with the patient. Attending Participation: I personally performed the entire procedure. Procedure Code(s): --- Professional --- 91636, Esophagogastroduodenoscopy, flexible, transoral; with biopsy, single or multiple Diagnosis Code(s): --- Professional --- K21.0, Gastro-esophageal reflux disease with esophagitis K22.8, Other specified diseases of esophagus K25.9, Gastric ulcer, unspecified as acute or chronic, without hemorrhage or perforation I85.00, Esophageal varices without bleeding CPT copyright 2019 [employer]. All rights reserved. The codes documented in this report are preliminary and upon life specialist review may be revised to meet current compliance requirements. Amos Pabon, 03/05/2022 9:59:19 AM Note Initiated On: 03/05/2022 9:23 AM Number of Addenda: [address] [address] Final Diagnosis Date Value Ref Range Status 03/05/2022 Final Stomach, biopsy (A): - Mild reactive changes and proton pump inhibitor effect - No active inflammation or H. pylori organisms (H&E examination) I personally reviewed the old records obtained from other providers from separate facilities/departments and summarized the data in this note. The patient's past medical, surgical, family and social history have been reviewed, as outlined in the electronic medical record. Time spent on review and documentation of data and future care plan: Yes, Amount 31min. 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 Office Visit [facility] - Orthopedic Surgery [address] [facility] [place] [address] Toño Cabrera MD [address] [place] [address] 01/08/2025 8:00 AM CDT Appointment [facility] [address] [place] [phone] 01/08/2025 9:00 AM CDT Office Visit [facility] - GI [address] [facility], [place] [phone] Amos Pabon MD [address] [place] [address] [place] [address] Scheduled Orders Name Type Priority Associated Diagnoses Orde r Schedule ALPHA FETOPROTEIN BLOOD TUMOR MARKER Lab Routine Cirrhosis of liver with ascites, unspecified hepatic cirrhosis type (HCC) Ordered: 08/16/2023 CBC W/O DIFFERENTIAL Lab Routine Cirrhosis of liver with ascites, unspecified hepatic cirrhosis type (HCC) Ordered: 08/16/2023 COMPREHENSIVE METABOLIC PANEL Lab Routine Cirrhosis of liver with ascites, unspecified hepatic cirrhosis type (HCC) Ordered: 08/16/2023 PT-INR Lab Routine Cirrhosis of liver with ascites, unspecified hepatic cirrhosis type (HCC) Ordered: 08/16/2023 HEMOGLOBIN A1C Lab Routine Cirrhosis of liver with ascites, unspecified hepatic cirrhosis type (HCC) Ordered: 08/16/2023 TSH REFLEX FREE T4 Lab Routine Cirrhosis of liver with ascites, unspecified hepatic cirrhosis type (HCC) Ordered: 08/16/2023 US ABDOMEN LIMITED Imaging Routine Cirrhosis of liver with ascites, unspecified hepatic cirrhosis type (HCC) 1 Occurrences starting 08/16/2023 until 10/24/2024 documented as of this encounter Goals Goal [...] documented as of this encounter Visit Diagnoses Diagnosis Cirrhosis of liver with ascites, unspecified hepatic cirrhosis type (HCC)- Primary documented in this encounter Care Teams Contract Writer Relationship Specialty Start [place] [address] [place] [phone] PCP - General 08/11/22 05/16/24 Eric Oconnell MD Hospitalist 10/10/21 documented as of this encounter
--- OUTSIDE RECORDS SUMMARY | 2024-10-19 20:12 | XMS_ITS | Patient Health Summary ---
Author Organization [facility] Address [address] [place] [address] Care Team Providers Care Telecommunication Lines Repairer Name Role Phone Eric Oconnell MD Unavailable [phone] Teodoro Lopez Primary Care Provider Unavailabl e [facility]non-owned Affiliates and Associated Physician Practices is amultiple site organization consisting of ambulatory clinics and hospital sitesin [place], [place], [place] and [place]. This disclosure is being madepursuant to the Care Everywhere program and may not contain all information available regarding this patient. Last updated 18.[facility] Allergies * Mushroom Extract Complex(Other) * Peanut-Derived(Anaphylaxis) -High Criticality * Shellfish Allergy(Other) Medications * Be aware that medications may not be up to date on this document. Alwaysverify current medications with the patient. * busPIRone (BUSPAR) 5 MG tablet Take 1 (one) tablet by mouth 2 times daily * folic acid (FOLVITE) 1 MG tablet Take 1 (one) tablet by mouth once daily * propranolol (INDERAL) 10 MG tablet Take 1 (one) tablet by mouth 2 times daily * baclofen (LIORESAL) 10 MG tablet Take 2 (two) tablets by mouth 2 times daily May cause drowsiness. * ferrous sulfate 325 (65 FE) MG tablet Take 1 (one) tablet by mouth once daily * acetaminophen (Tylenol) 500 MG tablet Take 1 (one) tablet by mouth every 6 hours as needed * buPROPion (Wellbutrin) 75 MG tablet(Started 06/25/2023) Take 1 (one) tablet by mouth once daily * vitamin D3 (Cholecalciferol) 125 MCG (5000 UT) capsule Take 1 (one) capsule by mouth once daily * Rober-Gest Antacid 500 MG chew tablet(Started 11/13/2022) Take 1 (one) tablet by mouth 3 times daily with meals * furosemide (Lasix) 40 MG tablet(Started 08/25/2022) Take 1 (one) tablet by mouth 2 times daily * gabapentin (Neurontin) 400 MG capsule(Started 05/28/2023) Take 1 (one) capsule by mouth 3 times daily * hydrOXYzine HCl (Atarax) 25 MG tablet(Started 06/07/2023) Take 1 (one) tablet by mouth 3 times daily * lactulose (Enulose) 10 GM/15ML solution(Started 08/16/2022) Take 30 mL by mouth 3 times daily * melatonin 3 MG tablet Take 2 (two) tablets by mouth nightly as needed * ondansetron (Zofran) 4 MG tablet Take 1 (one) tablet by mouth every 8 hours as needed * potassium chloride ER (Klor-Con M) 20 MEQ tablet(Started 08/24/2022) Take 1 (one) tablet by mouth once daily * QUEtiapine (SEROquel) 25 MG tablet(Started 06/09/2023) Take 0.5 (one-half) tablet by mouth 3 times daily * spironolactone (Aldactone) 100 MG tablet(Started 07/30/2022) Take 1 (one) tablet by mouth once daily * sucralfate (Carafate) 1 GM/10ML suspension(Started 06/03/2023) Take 10 mL by mouth 3 times daily * thiamine (Vitamin B-1) 100 MG tablet Take 1 (one) tablet by mouth once daily * Lactobacillus Acid-Pectin (Acidophilus/Pectin) capsule Take 1 (one) capsule by mouth 2 times daily * traZODone (Desyrel) 50 MG tablet Take 1 (one) tablet by mouth at bedtime * diclofenac sodium (Voltaren) 1 % gel Apply to affected area as needed * HYDROcodone-acetaminophen (Hoquiam) 5-325 MG tablet Take 1 (one) tablet by mouth every 6 hours as needed for Pain * diazePAM (Valium) 2 MG tablet Take 1 (one) tablet by mouth 3 times daily as needed for Anxiety * lidocaine (Lidoderm) 5 % patch(Started 03/29/2024) Apply 1 (one) patch to skin once daily Apply patch to most painful area and remove after 12 hours. May reapply a new patch 12 hours later. * simethicone (Mylicon) 80 MG chew tablet(Started 03/29/2024) Take 1 (one) tablet by mouth 3 times daily, after meals * LORazepam (Ativan) 0.5 MG tablet(Started 05/08/2024) * LORazepam (Ativan) 1 MG tablet(Started 04/19/2024) * pantoprazole EC (Protonix) 40 MG tablet(Started 05/10/2024) * prazosin (Minipress) 1 MG capsule(Started 05/07/2024) * rifAXIMin (Xifaxan) 550 MG tablet(Started 06/01/2024) Take 1 (one) tablet by mouth 2 times daily 11 refills by 06/01/2025 Active Problems Problem Noted Date Diagnosed Date Shortness of breath 03/29/2024 Leukocytosis, unspecified type 03/29/2024 RUQ pain 03/29/2024 Alcoholic cirrhosis of liver without ascites 02/2024 Gastrointestinal hemorrhage with melena 03/29/20 Vitamin D deficiency 12/19/2021 Nicotine abuse 12/19/2021 Chronic left hip pain 12/18/2021 Tachycardia 12/18/2021 Closed fracture of left hip 12/18/2021 Elevated liver enzymes 12/18/2021 Hepatic cirrhosis 10/01/2021 Social History Tobacco Use Types Packs/Day Years [...] on file Sexual Orientation Not on file Last Filed Vital Signs Vital Sign Reading Time Taken Comments Blood Pressure 121/88 03/29/2024 9:30 PM CDT Pulse 77 03/29/2024 9:30 PM CDT Temperature 36.9 ??C (98.4 ??F) 03/29/2024 9:30 PM CD T Respiratory Rate 17 03/29/2024 9:30 PM CDT Oxygen Saturation 96% 03/29/2024 9:30 PM CDT Inhaled Oxygen Concentration - - Weight 90.7 kg (200 lb) 03/28/2024 6:10 PM CDT Height 165.1 cm (5' 5 ) 03/28/2024 6:10 PM CDT Body Mass Index 33.28 03/28/2024 6:10 PM CDT Procedures * WY DRAIN/INJECT LARGE JOINT/BURSA(Performed 05/17/2024) Performed for Primary osteoarthritis of both knees * WY DRAIN/INJECT LARGE JOINT/BURSA(Performed 05/17/2024) Performed for Primary osteoarthritis of both knees * XR LUMBAR SPINE 2 OR 3VW(Performed 05/17/2024) Performed for Primary osteoarthritis of both knees * ALCOHOL ETHYL BLOOD(Performed 03/29/2024) * CULTURE BLOOD(Performed 03/29/2024) * LIPASE BLOOD(Performed 03/29/2024) * PHOSPHORUS BLOOD(Performed 03/29/2024) Performed for Shortness of breath * MAGNESIUM BLOOD(Performed 03/29/2024) Performed for Shortness of breath * COMPREHENSIVE METABOLIC PANEL(Performed 03/29/2024) Performed for Alcoholic cirrhosis of liver without ascites (HCC) * CBC W/O DIFFERENTIAL(Performed 03/29/2024) Performed for Shortness of breath * CULTURE BLOOD(Performed 03/29/2024) * URINALYSIS REFLEX MICROSCOPIC REFLEX CULTURE(Performed 03/29/2024) * PT EVAL AND TREAT(Performed 03/29/2024) * OT EVAL AND TREAT(Performed 03/29/2024) * XR FEMUR LEFT 2VW(Performed 03/29/2024) Performed for Shortness of breath * CT ABDOMEN PELVIS W CONTRAST(Performed 03/28/2024) Performed for Shortness of breath * DIFFERENTIAL MANUAL(Performed 03/28/2024) * AMMONIA(Performed 03/28/2024) * PT-INR SLH(Performed 03/28/2024) * MAGNESIUM BLOOD(Performed 03/28/2024) * LIPASE BLOOD(Performed 03/28/2024) * COMPREHENSIVE METABOLIC PANEL(Performed 03/28/2024) * CBC W AUTO DIFFERENTIAL(Performed 03/28/2024) * XR CHEST 1VW PORTABLE(Performed 03/28/2024) Performed for Shortness of breath * WY DRAIN/INJECT LARGE JOINT/BURSA(Performed 02/16/2024) Performed for Primary osteoarthritis of both knees * WY DRAIN/INJECT LARGE JOINT/BURSA(Performed 02/16/2024) Performed for Primary osteoarthritis of both knees * WY DRAIN/INJECT LARGE JOINT/BURSA(Performed 11/17/2023) Performed for Primary osteoarthritis of left knee * US ABDOMEN LIMITED(Performed 08/25/2023) Performed for Cirrhosis of liver with ascites, unspecified hepatic cirrhosis type (HCC) * VITAMIN D HYDROXY (EXTERNAL RESULT)(Performed 08/12/2023) * CBC W DIFF (EXTERNAL RESULT ENTRY)(Performed 08/12/2023) * COMP MET PANEL (EXTERNAL RESULT ENTRY)(Performed 08/12/2023) * WY DRAIN/INJECT LARGE JOINT/BURSA(Performed 06/29/2023) Performed for Primary osteoarthritis of left knee * PT INR (EXTERNAL RESULT ENTRY)(Performed 02/22/2023) * COMP MET PANEL (EXTERNAL RESULT ENTRY)(Performed 02/22/2023) * CBC W DIFF (EXTERNAL RESULT ENTRY)(Performed 02/22/2023) * WY DRAIN/INJECT LARGE JOINT/BURSA(Performed 02/16/2023) Performed for Primary osteoarthritis of left knee * WY DRAIN/INJECT LARGE JOINT/BURSA(Performed 08/11/2022) Performed for Left knee pain, unspecified chronicity, Primary osteoarthritis of left knee * XR KNEE LEFT 4VW OR MORE(Performed 08/11/2022) Performed for Left knee pain, unspecified chronicity * WY ED EGD FLEX TRANSORAL DX(Performed 06/18/2022) Performed for Chronic gastric ulcer without hemorrhage and without perforation * EGD(Performed 06/18/2022) * PATHOLOGY TISSUE(Performed 03/05/2022) Performed for Other cirrhosis of liver (HCC) * WY ED EGD FLEX TRANSORAL DX(Performed 03/05/2022) Performed for Other cirrhosis of liver (HCC) * EGD(Performed 03/05/2022) * HEPATIC FUNCTION PANEL(Performed 02/16/2022) Performed for Cirrhosis of liver with ascites, unspecified hepatic cirrhosis type (HCC) * BASIC METABOLIC PANEL (CALCIUM TOTAL)(Performed 02/16/2022) Performed for Cirrhosis of liver with ascites, unspecified hepatic cirrhosis type (HCC) * PT-INR SLH(Performed 02/16/2022) Performed for Cirrhosis of liver with ascites, unspecified hepatic cirrhosis type (HCC) * CBC W/O DIFFERENTIAL(Performed 02/16/2022) Performed for Cirrhosis of liver with ascites, unspecified hepatic cirrhosis type (HCC) * ALPHA FETOPROTEIN BLOOD TUMOR MARKER(Performed 02/16/2022) Performed for Cirrhosis of liver with ascites, unspecified hepatic cirrhosis type (HCC) * XR FEMUR LEFT 2VW(Performed 01/07/2022) Performed for Orthopedic aftercare * CBC W DIFF (EXTERNAL RESULT ENTRY)(Performed 01/05/2022) * COMP MET PANEL (EXTERNAL RESULT ENTRY)(Performed 01/05/2022) * PT INR (EXTERNAL RESULT ENTRY)(Performed 01/05/2022) * PT INR (EXTERNAL RESULT ENTRY)(Performed 12/25/2021) * COMP MET PANEL (EXTERNAL RESULT ENTRY)(Performed 12/25/2021) * CBC W DIFF (EXTERNAL RESULT ENTRY)(Performed 12/25/2021) * CBC W/O DIFFERENTIAL(Performed 12/19/2021) * VITAMIN D 25-HYDROXY(Performed 12/19/2021) * COMPREHENSIVE METABOLIC PANEL(Performed 12/19/2021) * CT HIP LEFT WO CONTRAST(Performed 12/18/2021) Performed for Closed fracture of left hip, initial encounter (HCC) * URINE DRUG SCREEN IMMUNOASSAY(Performed 12/18/2021) * BLOOD TYPE VERIFICATION(Performed 12/18/2021) * TYPE + SCREEN PANEL(Performed 12/18/2021) * SARS-COV-2 (COVID-19)+INFLU A+B PCR RAPID(Performed 12/18/2021) * XR FEMUR LEFT 2VW(Performed 12/18/2021) Performed for Closed fracture of left hip, initial encounter (HCC) * PT-INR SLH(Performed 12/17/2021) * ALCOHOL ETHYL BLOOD(Performed 12/17/2021) * XR PELVIS W LEFT HIP 2VW(Performed 12/17/2021) Performed for Closed fracture of left hip, initial encounter (HCC) * CBC W AUTO DIFFERENTIAL(Performed 12/17/2021) * COMPREHENSIVE METABOLIC PANEL(Performed 12/17/2021) * PT INR (EXTERNAL RESULT ENTRY)(Performed 11/14/2021) * CBC W DIFF (EXTERNAL RESULT ENTRY)(Performed 11/14/2021) * COMP MET PANEL (EXTERNAL RESULT ENTRY)(Performed 11/14/2021) * US ABDOMEN LIMITED(Performed 10/21/2021) Performed for Cirrhosis of liver with ascites, unspecified hepatic cirrhosis type (HCC) * IRON BLOOD(Performed 10/01/2021) Performed for Cirrhosis of liver with ascites, unspecified hepatic cirrhosis type (HCC) * IGG BLOOD(Performed 10/01/2021) Performed for Cirrhosis of liver with ascites, unspecified hepatic cirrhosis type (HCC) * FERRITIN(Performed 10/01/2021) Performed for Cirrhosis of liver with ascites, unspecified hepatic cirrhosis type (HCC) * TIFFANY BLOOD SCREEN W/REFLEX TITER(Performed 10/01/2021) Performed for Cirrhosis of liver with ascites, unspecified hepatic cirrhosis type (HCC) * [id number] BLOOD(Performed 10/01/2021) Performed for Cirrhosis of liver with ascites, unspecified hepatic cirrhosis type (HCC) * HEPATITIS C ANTIBODY(Performed 10/01/2021) Performed for Cirrhosis of liver with ascites, unspecified hepatic cirrhosis type (HCC) * HEPATITIS B SURFACE ANTIGEN W RFLX CONFIRMATION(Performed 10/01/2021) Performed for Cirrhosis of liver with ascites, unspecified hepatic cirrhosis type (HCC) * HEPATITIS B SURFACE ANTIBODY(Performed 10/01/2021) Performed for Cirrhosis of liver with ascites, unspecified hepatic cirrhosis type (HCC) * HEPATITIS B CORE ANTIBODY TOTAL(Performed 10/01/2021) Performed for Cirrhosis of liver with ascites, unspecified hepatic cirrhosis type (HCC) * HEPATITIS A ANTIBODY(Performed 10/01/2021) Performed for Cirrhosis of liver with ascites, unspecified hepatic cirrhosis type (HCC) * PT-INR SLH(Performed 10/01/2021) Performed for Cirrhosis of liver with ascites, unspecified hepatic cirrhosis type (HCC) * HEPATIC FUNCTION PANEL(Performed 10/01/2021) Performed for Cirrhosis of liver with ascites, unspecified hepatic cirrhosis type (HCC) * BASIC METABOLIC PANEL (CALCIUM TOTAL)(Performed 10/01/2021) Performed for Cirrhosis of liver with ascites, unspecified hepatic cirrhosis type (HCC) * CBC W/O DIFFERENTIAL(Performed 10/01/2021) Performed for Cirrhosis of liver with ascites, unspecified hepatic cirrhosis type (HCC) * ALPHA FETOPROTEIN BLOOD TUMOR MARKER(Performed 10/01/2021) Performed for Cirrhosis of liver with ascites, unspecified hepatic cirrhosis type (HCC) * CBC W DIFF (EXTERNAL RESULT ENTRY)(Performed 05/14/2021) Results * WY DRAIN/INJECT LARGE JOINT/BURSA (05/17/2024 3:13 PM CDT) Narrative Toño Cabrera MD - 05/17/2024 3:13 PM CDT Toño Cabrera MD ? 05/17/2024 ??3:13 PM Orthopaedic Surgery Procedure Note Lukas iDaz [id number] Diagnosis: Left knee pain Procedure: Injection of [...] for the entire procedure Toño Cabrera MD 05/17/2024 3:13 PM Toño Cabrera MD PROCEDURE/MINOR TRUDI GICAL ORDERABLES * WY DRAIN/INJECT LARGE JOINT/BURSA (05/17/2024 3:12 PM CDT) Narrative Toño Cabrera MD - 05/17/2024 3:12 PM CDT Toño Cabrera MD ? 05/17/2024 ??3:13 PM Orthopaedic Surgery Procedure Note Lukas Diaz [id number] Diagnosis: Right knee pain Procedure: Injection of [...] for the entire procedure Toño Cabrera MD 05/17/2024 3:12 PM Toño Cabrera MD PROCEDURE/MINOR TRUDI GICAL ORDERABLES * XR LUMBAR SPINE 2 OR 3VW (05/17/2024 12:11 PM CDT) Anatomical Region Laterality Modality Spine Radiographic Юлия ging 05/17/2024 12:2 9 PM CDT Narrative 05/17/2024 1:19 PM CDT PROCEDURE: ??XR LUMBAR SPINE 3VW, DATE/TIME OF EXAM: ??05/17/2024 12:11 PM, LOCATION ??[facility] INDICATION: M17.0: Bilateral primary osteoarthritis of [...] DATE/TIME OF EXAM: 05/17/2024 12:11 PM, LOCATION [facility] INDICATION: M17.0: Bilateral primary osteoarthritis of knee. FINDINGS: There is overall preservation of vertebral body height. Left convex scoliosis centered at L3-4 is present. The visualized sacroiliac jointsare normal. DIAGNOSIS: Left convex scoliosis. Edited by Carolina Brown on 05/17/2024 1:03 PM > Interpreting Provider: Sagar Rizo MD on 05/17/2024 1:19 PM Toño Cabrera MD DIAGNOSTIC IMAGING ORDERABLES * ALCOHOL ETHYL BLOOD (03/29/2024 12:08 PM CDT) Only the most recent of2 resultswithin the time period is included. Ethanol (mg/dL) <10 <10 mg/dL 12:36 PM CDT [facility] Ethanol Calculated (g/dL) <0.010 <=0.010 g/dL 03/29/2024 12:36 PM CDT [facility] Blood BLOOD SPECIMEN / Unknown Venipuncture / Unknown 03/29/2024 12:08 PM CDT 03/29/2024 12:16 PM CDT Narrative [facility] - 03/29/2024 12:36 PM CDT Ethanol Interp <10: None Detected. Depression of HOME CARE PHYSICAL THERAPIST: >100 mg/dl Potentially Critical: >250 mg/dl Potentially Fatal >400 mg/dl Ethanol in the patient's blood will contribute to the osmolar gap. Ethanol's contribution to the osmolar gap can be estimated by dividing the concentration of ethanol in mg/dL by 4.6. This test is for clinical use only and does not equal a FRED for legal purposes. Agusto Oswald MD LAB - CHEMISTR Y ORDERABLES Performing Organization Address City/[facility]/ZIP Co de Phone Number [facility] [address] [place] [address], [facility] [phone] * CULTURE BLOOD (03/29/2024 4:31 AM CDT) Only the most recent of2 resultswithin the time period is included. Culture No growth day 5 DEVAUGHN 04/03/2024 8:01 AM CDT [facility] Blood PERIPHERAL BLOOD / Unknown Lab Venipuncture / Unknown 03/29/2024 4:31 AM CDT 03/29/2024 4:37 AM CDT Isaak Ibrahim MD LAB - MICROBIOLOGY O RDERABLES Performing Organization Address City/[facility]/ZIP Co de Phone Number [facility] [address] [place] [address], [facility] [phone] * CBC W/O DIFFERENTIAL (03/29/2024 4:30 AM CDT) Only the most recent of4 resultswithin the time period is included. WBC 8.7 4.0 - 10.7 x10E9/L 03/29/2024 5:08 AM CDT [facility] RBC Count 4.81 4.30 - 5.80 x10E12/L 03/29/2024 5:08 AM CDT [facility] Hemoglobin 15.3 13.3 - 17.5 g/dL 03/29/2024 5:08 AM CDT [facility] Hematocrit 43.4 38.7 - 51.1 % 03/29/2024 5:08 AM [facility] MCV 90.2 80.0 - 98.0 fL 03/29/2024 5:08 AM [facility] MCH 31.8 26.7 - 33.6 pg 03/29/2024 5:08 AM [facility] MCHC 35.3 31.7 - 36.3 g/dL 03/29/2024 5:08 AM [facility] RDW-CV 12.1 11.3 - 14.8 % 03/29/2024 5:08 AM [facility] Platelet Count 178 150 - 420 x10E9/L 03/29/2024 5:08 AM [facility] MPV 10.5 7.8 - 11.4 fL 03/29/2024 5:08 AM [facility] Blood BLOOD SPECIMEN / Unknown Lab Venipuncture / Unknown 03/29/2024 4:30 AM CDT 03/29/2024 4:42 AM CDT Isaak Ibrahim MD LAB - HEMATOLOGY ORD ERABLES [facility] [address] [place] [address], [facility] [phone] * (ABNORMAL) COMPREHENSIVE METABOLIC PANEL (03/29/2024 4:30 AM CDT) Only the most recent of4 resultswithin the time period is included. BUN 10 7 - 26 mg/dL 03/29/2024 5:09 AM [facility] Creatinine 0.84 0.71 - 1.16 mg/dL 03/29/2024 5:09 AM [facility] Sodium 135(L) 136 - 145 mmol/L 03/29/2024 5:09 AM [facility] Potassium 3.8 3.5 - 4.5 mmol/L 03/29/2024 5:09 AM [facility] Chloride 105 98 - 107 mmol/L 03/29/2024 5:09 AM [facility] CO2 22 22 - 29 mmol/L 03/29/2024 5:09 AM [facility] Glucose 87 70 - 115 mg/dL 03/29/2024 5:09 AM [facility] Calcium 9.6 8.4 - 10.2 mg/dL 03/29/2024 5:09 AM [facility] Protein Total 7.6 6.0 - 8.3 g/dL 03/29/2024 5:09 AM [facility] Albumin 3.8 3.4 - 5.0 g/dL 03/29/2024 5:09 AM [facility] Bilirubin Total 0.9 0.2 - 1.2 mg/dL 03/29/2024 5:09 AM [facility] Alkaline Phosphatase 81 40 - 150 U/L 03/29/2024 5:09 AM [facility] ALT 20 5 - 55 U/L 03/29/2024 5:09 AM [facility] AST 17 5 - 34 U/L 03/29/2024 5:09 AM [facility] Anion Gap 8 6 - 16 03/29/2024 5:09 AM [facility] BUN/Creatinine Ratio 12 7 - 23 03/29/2024 5:09 AM [facility] Osmolality Calculated 278 275 - 295 mOsm/kg 03/29/2024 5:09 AM [facility] Albumin/Globulin Ratio 1.0(L) 1.1 - 2.3 03/29/2024 5:09 AM [facility] eGFR by CKD-EPI >90 >=90 mL/min/1.7 3 m2 03/29/2024 5:09 AM [facility] Blood BLOOD SPECIMEN / Unknown Lab Venipuncture / Unknown 03/29/2024 4:30 AM CDT 03/29/2024 4:41 AM T Isaak Ibrahim MD LAB - CHEMISTRY KURT ZARAGO[facility] Organization Address City/State/ZIP Co de Phone Number [facility] [address] [place] [address], [facility] [phone] * PHOSPHORUS BLOOD (03/29/2024 4:30 AM CDT) Phosphorus 2.9 2.8 - 5.1 mg/dL 03/29/2024 5:09 AM CDT [facility] Blood BLOOD SPECIMEN / Unknown Lab Venipuncture / Unknown 03/29/2024 4:30 AM CDT 03/29/2024 4:41 AM CDT Isaak Ibrahim MD LAB - CHEMISTRY KURT ZARAGOZA Performing Organization Address City/[facility]/ZIP Co de Phone Number [facility] [address] [place] [address], [place] [phone] * MAGNESIUM BLOOD (03/29/2024 4:30 AM CDT) Only the most recent of2 resultswithin the time period is included. Magnesium 2.1 1.6 - 2.6 mg/dL 03/29/2024 5:09 AM CDT [facility] Blood BLOOD SPECIMEN / Unknown Lab Venipuncture / Unknown 03/29/2024 4:30 AM CDT 03/29/2024 4:41 AM CDT Isaak Ibrahim MD LAB - CHEMISTRY KURT ZARAGOZA Performing Organization Address [facility]/ZIP Co de Phone Number [address] [address], [place] [phone] * LIPASE BLOOD (03/29/2024 4:30 AM CDT) Only the most recent of2 resultswithin the time period is included. Lipase 13 8 - 78 U/L 03/29/2024 5:09 AM CDT [facility] Blood BLOOD SPECIMEN / Unknown Lab Venipuncture / Unknown 03/29/2024 4:30 AM CDT 03/29/2024 4:41 AM CDT Narrative [facility] - 03/29/2024 5:09 AM CDT Lipase results from the [employer] Alinity analyzer may not be comparable with other methodologies. Isaak Ibrahim MD LAB - CHEMISTRY KURT ZARAGOZA [facility] [address] [place] [address], [facility] [phone] * (ABNORMAL) URINALYSIS REFLEX MICROSCOPIC REFLEX CULTURE (03/29/2024 3:54 AM CDT) Color UA Colorless(A) Straw, Yellow 03/29/2024 4:19 AM [facility] Clarity UA Clear Clear 03/29/2024 4:19 AM T [facility] Specific [place] UA 1.009 1.005 - 1.030 03/29/2024 4:19 AM [facility] pH UA 7.0 5.0 - 8.0 pH 03/29/2024 4:19 AM [facility] Protein UA Negative Negative 03/29/2024 4:19 AM [facility] Glucose UA Negative Negative 03/29/2024 4:19 AM [facility] Ketone UA Negative Negative 03/29/2024 4:19 AM [facility] Bilirubin UA Negative Negative 03/29/2024 4:19 AM [facility] Blood UA Negative Negative 03/29/2024 4:19 AM [facility] Nitrite UA Negative Negative 03/29/2024 4:19 AM [facility] Leukocyte Esterase Negative Negative 03/29/2024 4:19 AM [facility] Urobilinogen UA Negative Negative mg/dL 03/29/2024 4:19 AM [facility] Comment UA Microscopic not indicated. 03/29/2024 4:19 AM [facility] Urine URINE SPECIMEN OBTAINED BY CLEAN CATCH PROCEDURE / Unknown Collection / Unknown 03/29/2024 3:54 AM CDT 03/29/2024 3:56 AM T Narrative [facility] - 03/29/2024 4:19 AM CDT Isaak Ibrahim MD LAB - URINALYSIS ORD ERABLES [facility] [address] [place] [address], [facility] [phone] * XR FEMUR LEFT 2VW (03/29/2024 12:13 AM CDT) Only the most recent of3 resultswithin the time period is included. 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 There is increased osteolysis of the fracture fragments are in femoral head compared to prior exam. The bones are demineralized. Report dictated by Domingo March MD I, Ludin Nuno MD have personally reviewed and interpreted this examination/study. > Interpreting Provider: Ludin Nuno MD on 03/29/2024 11:37 AM Procedure Note Ludin Nnuo MD - 03/29/2024 PROCEDURE: XR FEMUR LEFT 2VW, DATE/TIME OF EXAM: 03/29/2024 12:13 AM, LOCATION [facility] INDICATION: R06.02: Shortness of breath ADDITIONAL CLINICAL INFORMATION: Ordering Provider Reason For Exam: hip pain Technologist Note: Additional: COMPARISON: Radiograph from 01/07/2022 FINDINGS/IMPRESSION: Chronic Nonunited femoral neck fracture with increase superiorsubluxation of femoral shaft. There is increased osteolysis of the fracturefragments are in femoral head compared to prior exam. The bones are demineralized. Report dictated by Domingo March MD I, Ludin Nuno MD have personally reviewed and interpreted this examination/study. > Interpreting Provider: Ludin Nuno MD on 03/29/2024 11:37 AM Isaak Ibrahim MD DIAGNOSTIC IMAGING O RDERABLES * CT ABDOMEN PELVIS W CONTRAST (03/28/2024 11:59 PM CDT) Anatomical Region Laterality Modality Abdomen, Pelvis Computed Tomogra phy 03/29/2024 12:1 7 AM CDT Impressions 03/29/2024 2:30 AM CDT Impression: 1.Subpleural airspace opacities within the bilateral lung bases, right greater than left, may represent pneumonia. 2.No acute process in the abdomen or pelvis. 3.Hepatic cirrhosis with recanalized umbilical vein and paraesophageal varices. 4.Redemonstrated chronic left femoral neck fracture with interval increase in superior displacement of the femur and osteolysis of the femoral head. > Dictated by Chad Francisco DO (radiology technologist). I, Ramiro Naranjo MD have personally reviewed and interpreted this examination/study. > Interpreting Provider: Ramiro Naranjo MD on 03/29/2024 2:30 AM Narrative 03/29/2024 2:30 AM CDT PROCEDURE: ??CT ABDOMEN PELVIS W CONTRAST, DATE/TIME OF EXAM: ??03/29/2024 12:00 AM, LOCATION ??[facility] INDICATION: R06.02: Shortness of breath ADDITIONAL CLINICAL INFORMATION: Ordering Provider Reason For Exam: ??Right quadrant abdominal Technologist Note: Additional: COMPARISON: None. TECHNIQUE: CT of the abdomen and pelvis was performed following the uneventful administration of 100 mL of Isovue 370 intravenous contrast according to standard protocol. Findings: Lower Chest: Subpleural airspace opacities within the lung bases, right greater than left. Liver: The liver has a nodular surface, consistent with hepatic cirrhosis. Recanalized umbilical vein and paraesophageal varices. Gallbladder and Bile Ducts: Normal. Spleen: Normal. Pancreas: Normal. Adrenals: Normal. Kidneys: Normal. Gastrointestinal: The stomach and visualized loops of large and small bowel are unremarkable. Hyperdense material noted within a normal-appearing appendix. Mesentery/Peritoneum/Retroperitoneum: Normal. Bladder: Normal. Reproductive Organs: The prostate is normal. Vasculature: No vascular abnormality is present. Bones: Bone windows demonstrate no suspicious lytic or blastic lesions. Redemonstrated chronic left femoral neck fracture with interval increase in superior displacement of the femur and osteolysis of the femoral head Soft tissues: Normal. Procedure Note Ramiro Naranjo MD - 03/29/2024 PROCEDURE: CT ABDOMEN PELVIS W CONTRAST, DATE/TIME OF EXAM: 03/29/2024 12:00 AM, LOCATION [facility] INDICATION: R06.02: Shortness of breath ADDITIONAL CLINICAL INFORMATION: Ordering Provider Reason For Exam: Right quadrant abdominal Technologist Note: Additional: COMPARISON: None. TECHNIQUE: CT of the abdomen and pelvis was performed following the uneventful administration of 100 mL of Isovue 370 intravenous contrast according to standard protocol. Findings: Lower Chest: Subpleural airspace opacities within the lung bases, right greater than left. Liver: The liver has a nodular surface, consistent with hepatic cirrhosis. Recanalized umbilical vein and paraesophageal varices. Gallbladder and Bile Ducts: Normal. Spleen: Normal. Pancreas: Normal. Adrenals: Normal. Kidneys: Normal. Gastrointestinal: The stomach and visualized loops of large and small bowel areunremarkable. Hyperdense material noted within a normal-appearing appendix. Mesentery/Peritoneum/Retroperitoneum: Normal. Bladder: Normal. Reproductive Organs: The prostate is normal. Vasculature: No vascular abnormality is present. Bones: Bone windows demonstrate no suspicious lytic or blastic lesions. Redemonstrated chronic left femoral neck fracture with interval increasein superior displacement of the femur and osteolysis of the femoral head Soft tissues: Normal. Impression: 1.Subpleural airspace opacities within the bilateral lung bases, right greater than left, may represent pneumonia. 2.No acute process in the abdomen or pelvis. 3.Hepatic cirrhosis with recanalized umbilical vein and paraesophageal varices. 4.Redemonstrated chronic left femoral neck fracture with intervalincrease in superior displacement of the femur and osteolysis of the femoralhead. > Dictated by Chad Francisco DO (radiology technologist). I, Ramiro Naranjo MD have personally reviewed and interpreted this examination/study. > Interpreting Provider: Ramiro Naranjo MD on 03/29/2024 2:30 AM Isaak Ibrahim MD CT ORDERABLES * PT-INR [facility] (03/28/2024 7:13 PM CDT) Only the most recent of4 resultswithin the time period is included. PT 13.8 12.1 - 14.8 Seconds 03/28/2024 7:44 PM CDT [facility] INR 1.1 See Comment 03/28/2024 7:44 PM [facility] Comment:The suggested therap eutic range for standard coumadin (warfarin) therapy is an INR of 2.0-3.0. For high-risk patients (Mechanical Mitral Valve Prosthesis, etc.), the suggested prophylactic therapeutic range is an INR of 2.5-3.5. Blood BLOOD SPECIMEN / Unknown Venipuncture / Unknown 03/28/2024 7:13 PM CDT 03/28/2024 7:16 PM CDT Linda Leslie INORGANIC CHEMICAL TECHNICIAN-CONTAMINATION CONSULTANT LAB - COAGUL ATION ORDERABLES [facility] [address] [place] [id number], [facility] [phone] * (ABNORMAL) DIFFERENTIAL MANUAL (03/28/2024 7:13 PM CDT) Neutrophil % 72 41 - 74 % 03/28/2024 8:38 PM [facility] Lymphocyte % 16(L) 17 - 47 % 03/28/2024 8:38 PM [facility] Monocyte % 12(H) 3 - 11 % 03/28/2024 8:38 PM [facility] Neutrophil Absolute 9.79(H) 1.60 - 7.50 x10E9/L 03/28/2024 8:38 PM [facility] Lymphocyte Absolute 2.18 1.00 - 4.40 x10E9/L 03/28/2024 8:38 PM [facility] Monocyte Absolute 1.63(H) 0.15 - 1.00 x10E9/L 03/28/2024 8:38 PM [facility] RBC Morphology NORMAL 03/28/2024 8:38 PM [facility] Large Platelets PRESENT(A) (none) 8:38 PM [facility] Blood BLOOD SPECIMEN / Unknown Venipuncture / Unknown 03/28/2024 7:13 PM CDT 03/28/2024 7:18 PM CDT Linda Leslie INORGANIC CHEMICAL TECHNICIAN-CONTAMINATION CONSULTANT LAB - HEMATO LOGY ORDERABLES [facility] [address] [place] [address], [facility] [phone] * (ABNORMAL) CBC W AUTO DIFFERENTIAL (03/28/2024 7:13 PM CDT) Only the most recent of2 resultswithin the time period is included. WBC 13.6(H) 4.0 - 10.7 x10E9/L 03/28/2024 8:38 PM CDT [facility] RBC Count 4.92 4.30 - 5.80 x10E12/L 03/28/2024 8:38 PM CDT [facility] Hemoglobin 15.7 13.3 - 17.5 g/dL 03/28/2024 8:38 PM T [facility] Hematocrit 43.9 38.7 - 51.1 % 03/28/2024 8:38 PM T [facility] MCV 89.2 80.0 - 98.0 fL 03/28/2024 8:38 PM CDT [facility] MCH 31.9 26.7 - 33.6 pg 03/28/2024 8:38 PM T [facility] MCHC 35.8 31.7 - 36.3 g/dL 03/28/2024 8:38 PM CDT [facility] RDW-CV 11.9 11.3 - 14.8 % 03/28/2024 8:38 PM T [facility] Platelet Count 175 150 - 420 x10E9/L 03/28/2024 8:38 PM T [facility] MPV 9.7 7.8 - 11.4 fL 03/28/2024 8:38 PM T [facility] Blood BLOOD SPECIMEN / Unknown Venipuncture / Unknown 03/28/2024 7:13 PM CDT 03/28/2024 7:18 PM CDT Linda Leslie INORGANIC CHEMICAL TECHNICIAN-CONTAMINATION CONSULTANT LAB - HEMATO LOGY ORDERABLES [facility] [address] [place] [address], [facility] [phone] * AMMONIA (03/28/2024 7:13 PM CDT) Ammonia 37 <=72 umol/L 03/28/2024 7:40 PM CDT [facility] Blood BLOOD SPECIMEN / Unknown Venipuncture / Unknown 03/28/2024 7:13 PM CDT 03/28/2024 7:16 PM CDT Linda Leslie INORGANIC CHEMICAL TECHNICIAN-CONTAMINATION CONSULTANT LAB - CHEMIS TRY ORDERABLES [facility] [address] [place] [address], [facility] [phone] * XR CHEST 1VW PORTABLE (03/28/2024 7:10 PM CDT) Anatomical Region Laterality Modality Chest Radiographic Юлия ging 03/28/2024 9:11 PM CDT Narrative 03/29/2024 6:21 AM CDT PROCEDURE: ??XR CHEST 1VW PORTABLE, DATE/TIME OF EXAM: ??03/28/2024 7:14 PM, LOCATION ??[facility] INDICATION: R06.02: Shortness of breath ADDITIONAL CLINICAL INFORMATION: Ordering Provider Reason For Exam: ??r/o effusion COMPARISON: None. FINDINGS/IMPRESSION: Mild bibasilar linear opacities, likely atelectasis. Superimposed aspiration or infection cannot be excluded. There is no pleural effusion or pneumothorax. The cardiomediastinal silhouette is normal. The visible bony thorax is intact. > Dictated by Lukas Francisco DO (Piece Hand) ILudin MD have personally reviewed and interpreted this examination/study. > Interpreting Provider: Ludin Nuno MD on 03/29/2024 6:21 AM Procedure Note Ludin Nuno MD - 03/29/2024 PROCEDURE: XR CHEST 1VW PORTABLE, DATE/TIME OF EXAM: 03/28/2024 7:14 PM, LOCATION [facility] INDICATION: R06.02: Shortness of breath ADDITIONAL CLINICAL INFORMATION: Ordering Provider Reason For Exam: r/o effusion COMPARISON: None. FINDINGS/IMPRESSION: Mild bibasilar linear opacities, likely atelectasis. Superimposed aspiration or infection cannot be excluded. There is no pleural effusionor pneumothorax. The cardiomediastinal silhouette is normal. The visiblebony thorax is intact. > Dictated by Lukas Francisco DO (Piece Hand) I, Ludin Nuno MD have personally reviewed and interpreted this examination/study. > Interpreting Provider: Ludin Nuno MD on 03/29/2024 6:21 AM Linda Betancourt Anuj INORGANIC CHEMICAL TECHNICIAN-CONTAMINATION CONSULTANT DIAGNOSTIC I MAGING ORDERABLES * [place] DRAIN/INJECT LARGE JOINT/BURSA (02/16/2024 10:34 AM CDT) Narrative Toño Cabrera MD - 02/16/2024 10:34 AM CDT Toño Cabrera MD ? 02/16/2024 11:34 AM Orthopaedic Surgery Procedure Note Lukas Diaz [id number] Diagnosis: Left knee pain Procedure: Injection of [...] Cabrera MD PROCEDURE/MINOR TRUDI GICAL ORDERABLES * [place] DRAIN/INJECT LARGE JOINT/BURSA (02/16/2024 10:34 AM CDT) Narrative Toño Cabrera MD - 02/16/2024 10:34 AM CDT Toño Cabrera MD ? 02/16/2024 11:34 AM Orthopaedic Surgery Procedure Note Lukas Diaz [id number] Diagnosis: Right knee pain Procedure: Injection of [...] Cabrera MD PROCEDURE/MINOR TRUDI GICAL ORDERABLES * [place] DRAIN/INJECT LARGE JOINT/BURSA (11/17/2023 10:31 AM OIL PROCESS STILLMAN) Narrative Toño Cabrera MD - 11/17/2023 10:31 AM OIL PROCESS STILLMAN Toño Cabrera MD ? 11/17/2023 10:31 AM Orthopaedic Surgery Procedure Note Lukas Diaz [id number] Diagnosis: Left knee pain Procedure: Injection of [...] for the entire procedure Toño Cabrera MD 11/17/2023 10:31 AM Toño Cabrera MD PROCEDURE/MINOR TRUDI GICAL ORDERABLES * US ABDOMEN LIMITED (08/25/2023 8:34 AM CDT) Only the most recent of2 resultswithin the time period is included. Anatomical Region Laterality Modality Abdomen Ultrasound 08/25/2023 8:29 AM CDT Impressions 08/25/2023 10:18 AM CDT Impression: 1.Hepatic cirrhosis with sequela of portal hypertension including recanalization of the umbilical vein. 2.Liver Visualization Score B: Moderate limitations. 3.US-1 Negative. Repeat surveillance US in 6 months. Report dictated by Hany Cornelius MD, (radiology technologist). I, Bina Perez MD have personally reviewed and interpreted this examination/study. > Interpreting Provider: Bina Perez MD on 08/25/2023 10:18 AM Narrative 08/25/2023 10:18 AM CDT PROCEDURE: ??US ABDOMEN LIMITED, DATE/TIME OF EXAM: ??08/25/2023 7:53 AM, LOCATION ??[facility] INDICATION: K74.60: Cirrhosis of liver with ascites, unspecified hepatic cirrhosis type (CMS/HCC) R18.8: Cirrhosis of liver with ascites, unspecified hepatic cirrhosis type (CMS/HCC) ADDITIONAL CLINICAL INFORMATION: Ordering Provider Reason For Exam: ??hcc screening Technologist Note: Additional: COMPARISON: 10/21/2021 abdominal ultrasound Findings Liver Visualization Score: Moderate limitations in liver visualization Liver Morphology: The liver has a coarse echotexture and nodular surface. Liver Observations: None. Main Portal Vein: Color Doppler evaluation demonstrates patency of the main portal vein. Hepatic Veins: Color Doppler evaluation demonstrates patency of the hepatic veins. Bile Ducts: The common bile duct is nondilated, measuring 3 mm. No intrahepatic or extrahepatic biliary dilation. Gallbladder: No gallstones or pericholecystic fluid is seen.. Sonographic Venegas's sign is negative. Ascites: No ascites is present. Spleen: The spleen measures 10.1 cm in length. Pancreas: The visible portion of the pancreas is normal in echogenicity. Right Kidney: The right kidney measures 10.1 cm in length. Limited views of the right kidney reveal no evidence of nephrolithiasis or hydronephrosis. ??No discrete mass identified. Other: There is recanalization of the umbilical vein. Procedure Note Bina Perez MD - 08/25/2023 PROCEDURE: US ABDOMEN LIMITED, DATE/TIME OF EXAM: 08/25/2023 7:53 AM, LOCATION [facility] INDICATION: K74.60: Cirrhosis of liver with ascites, unspecified hepatic cirrhosistype (CMS/HCC) R18.8: Cirrhosis of liver with ascites, unspecified hepatic cirrhosistype (CMS/HCC) ADDITIONAL CLINICAL INFORMATION: Ordering Provider Reason For Exam: hcc screening Technologist Note: Additional: COMPARISON: 10/21/2021 abdominal ultrasound Findings Liver Visualization Score: Moderate limitations in liver visualization Liver Morphology: The liver has a coarse echotexture and nodular surface. Liver Observations: None. Main Portal Vein: Color Doppler evaluation demonstrates patency of the main portal vein. Hepatic Veins: Color Doppler evaluation demonstrates patency of the hepatic veins. Bile Ducts: The common bile duct is nondilated, measuring 3 mm. No intrahepatic or extrahepatic biliary dilation. Gallbladder: No gallstones or pericholecystic fluid is seen.. Sonographic Venegas'ssign is negative. Ascites: No ascites is present. Spleen: The spleen measures 10.1 cm in length. Pancreas: The visible portion of the pancreas is normal in echogenicity. Right Kidney: The right kidney measures 10.1 cm in length. Limited views of the right kidney reveal no evidence of nephrolithiasis or hydronephrosis. No discrete mass identified. Other: There is recanalization of the umbilical vein. Impression: 1.Hepatic cirrhosis with sequela of portal hypertension including recanalization of the umbilical vein. 2.Liver Visualization Score B: Moderate limitations. 3.US-1 Negative. Repeat surveillance US in 6 months. Report dictated by Hany Cornelius MD, (radiology technologist). I, Bina Perez MD have personally reviewed and interpreted this examination/study. > Interpreting Provider: Bina Perez MD on 08/25/2023 10:18 AM Klarissa Rutledge INORGANIC CHEMICAL TECHNICIAN-CONTAMINATION CONSULTANT US ORDERABL ES * CBC W DIFF (EXTERNAL RESULT ENTRY) (08/12/2023 6:18 AM CDT) Only the most recent of6 resultswithin the time period is included. WBC (EXTERNAL RESULT) 9.2 10^3/ul [facility] Hemoglobin (EXTERNAL RESULT) 14.9 g/dl [facility] Hematocrit (EXTERNAL RESULT) 44.6 % [facility] Platelets (EXTERNAL RESULT) 179 10^3/ul [facility] Neutrophil Absolute (EXTERNAL RESULT) [facility] Blood BLOOD SPECIMEN / Unknown 08/12/2023 6:18 AM CDT Historical Provider LAB - HEMATOLOGY ORDERABLES [facility] [address] [place] [address], [facility] [phone] * VITAMIN D HYDROXY (EXTERNAL RESULT) (08/12/2023 6:18 AM CDT) Vitamin D Hydroxy (External Result) 75 [facility] Blood 08/12/2023 6:18 AM CDT Historical Provider LAB - CHEMISTRY O CAITLIN [facility] [address] [place] [phone], [facility] [phone] * COMP MET PANEL (EXTERNAL RESULT ENTRY) (08/12/2023 6:18 AM CDT) Only the most recent of5 resultswithin the time period is included. Glucose (EXTERNAL) 87 mg/dL [facility] Sodium (EXTERNAL RESULT) 142 mmol/L [facility] Potassium (EXTERNAL RESULT) 4.3 mmol/L [facility] Chloride (EXTERNAL RESULT) 104 mmol/L [facility] CO2 (EXTERNAL) 29 mmol/L [facility] Calcium (EXTERNAL RESULT) 9.0 mg/dL [facility] Anion Gap (EXTERNAL RESULT) [facility] BUN (EXTERNAL RESULT) 12 mg/dL [facility] Creatinine (EXTERNAL RESULT) 0.8 mg/dl [facility] Alkaline Phosphatase (EXTERNAL RESULT) 70 U/L [facility] ALT (EXTERNAL RESULT) 20 U/L [facility] AST (EXTERNAL RESULT) 15 U/L [facility] Protein Total (EXTERNAL RESULT) 7.1 gm/dL [facility] Albumin (EXTERNAL RESULT) 4.0 gm/dL [facility] Bilirubin Total (EXTERNAL RESULT) 0.5 mg/dL [facility] eGFR MDRD (EXTERNAL RESULT) 80 mL/min/1.7 3m2 [facility] eGFR (EXTERNAL) 97 mL/min/1.7 3m2 [facility] Blood BLOOD SPECIMEN / Unknown 08/12/2023 6:18 AM CDT Historical Provider LAB - CHEMISTRY O CAITLIN [facility] [address] [address], [facility] [phone] * [place] DRAIN/INJECT LARGE JOINT/BURSA (06/29/2023 9:27 AM CDT) Narrative Toño Cabrera MD - 06/29/2023 9:27 AM CDT Toño Cabrera MD ? 06/29/2023 ??3:12 PM Orthopaedic Surgery Procedure Note Lukas Diaz [id number] Diagnosis: Left knee pain Procedure: Injection of corticosteroid into the left knee Indications: Lukas Diaz is a 37 year old male who has left knee pain and arthritis. Procedure Details: The patient was informed of [...] of plan per note. Injection performed by: Myself Blood Loss: ??Minimal I was present for the entire procedure Toño Cabrera MD 06/29/2023 9:27 AM Toño Cabrera MD PROCEDURE/MINOR TRUDI GICAL ORDERABLES * PT INR (EXTERNAL RESULT ENTRY) (02/22/2023 4:50 AM CDT) Only the most recent of4 resultswithin the time period is included. PT (EXTERNAL) 11.4 sec OTHER LAB INR (EXTERNAL RESULT) 1.0 OTHER LAB Blood BLOOD SPECIMEN / Unknown 02/22/2023 4:50 AM CDT Historical Provider LAB - CHEMISTRY O RDERABLES OTHER LAB * [place] DRAIN/INJECT LARGE JOINT/BURSA (02/16/2023 12:00 PM CDT) Narrative Toño Cabrera MD - 02/16/2023 12:00 PM CDT Toño Cabrera MD ? 02/18/2023 ??3:47 PM Orthopaedic Surgery Procedure Note Lukas Diaz [id number] Diagnosis: Left knee pain Procedure: Injection of corticosteroid into the left knee Indications: Lukas Diaz is a 37 year old male who has left knee pain and arthritis. Procedure Details: The patient was informed of [...] for the entire procedure Toño Cabrera MD 02/16/2023 12:00 PM Toño Cabrera MD PROCEDURE/MINOR TRUDI GICAL ORDERABLES * [place] DRAIN/INJECT LARGE JOINT/BURSA (08/11/2022 10:08 AM CDT) Narrative Toño Cabrera MD - 08/11/2022 10:08 AM CDT Toño Cabrera MD ? 09/04/2022 12:50 PM Orthopaedic Surgery Procedure Note Diagnosis: Left knee pain Procedure: Injection of corticosteroid into the left knee Indications: Lukas Diaz is a 36 year old male who has left knee pain and arthritis. Procedure Details: The patient was informed of [...] Loss: ??Minimal I was present for the lee portions of the procedure. ?? Toño Cabrera MD 08/11/2022 10:08 AM Toño Cabrera MD PROCEDURE/MINOR TRUDI GICAL ORDERABLES * XR KNEE LEFT 4VW OR MORE (08/11/2022 9:22 AM CDT) Anatomical Region Laterality Modality Lower Extremity Radiographic Юлия ging 08/11/2022 10:1 1 AM CDT Impressions 08/11/2022 10:11 AM CDT IMPRESSION: Mild narrowing of the medial compartment. No joint effusion or acute bony destruction. > Interpreting Provider: Arthur Nesbitt MD on 08/11/2022 10:11 AM Narrative 08/11/2022 10:11 AM CDT PROCEDURE: ??XR KNEE LEFT 4VW OR MORE, DATE/TIME OF EXAM: ??08/11/2022 9:22 AM, LOCATION ??[facility] INDICATION: M25.562: Pain in left knee Findings: No old studies are available for comparison purposes. There is mild osteopenia. There is some mild narrowing of the medial compartment. The lateral compartment is well maintained. No fracture is seen. There is no joint effusion. There is no bony destruction. Procedure Note Arthur Nesbitt MD - 08/11/2022 PROCEDURE: XR KNEE LEFT 4VW OR MORE, DATE/TIME OF EXAM: 29:22 AM, LOCATION [facility] INDICATION: M25.562: Pain in left knee Findings: No old studies are available for comparison purposes. There is mild osteopenia. There is some mild narrowing of the medial compartment. The lateral compartment is well maintained. No fracture is seen. Thereis no joint effusion. There is no bony destruction. IMPRESSION: Mild narrowing of the medial compartment. No joint effusion or acute bony destruction. > Interpreting Provider: Arthur Nesbitt MD on 08/11/2022 10:11 AM Toño Cabrera MD DIAGNOSTIC IMAGING ORDERABLES * EGD (06/18/2022 9:04 AM CDT) Report Endoscopy POC Endoscopy Department Report __ _ Patient Name: Lukas Diaz ? Procedure Date: 06/18/2022 9:04 AM ?Date of : 1985 Classification: Outpatient ?Gender: Male Ethnicity: Not or ? Race: White __ _ Providers: ?Amos Pabon Referring MD: ? Procedure: ?Upper GI endoscopy Indications: ?Follow-up of Holt's esophagus, Follow-up of ?acute gastric ulcer Medications: ?Monitored Anesthesia Care Description of Procedure: Pre-Anesthesia Assessment: ?- Pre-procedure physical examination revealed no ?contraindications to sedation. ?- After reviewing the risks and benefits, the ?patient was deemed in satisfactory condition to ?undergo the procedure. ?- The anesthesia plan was to use monitored ?anesthesia care (MAC). ?- Immediately prior to administration of ?medications, the patient was re-assessed for ?adequacy to receive sedatives. ?After obtaining informed consent, the endoscope was ?passed under direct vision. Throughout the ?procedure, the patient's blood pressure, pulse, and ?oxygen saturations were monitored continuously. The ?Endoscope was introduced through the mouth, and ?advanced to the second part of duodenum. The upper ?GI endoscopy was accomplished without difficulty. ?The patient tolerated the procedure well. ? Findings: ? The esophagus and gastroesophageal junction were examined with white ? light and narrow band imaging (NBI). There were esophageal mucosal ? changes consistent with long-segment Holt's esophagus. These changes ? involved the mucosa at the upper extent of the gastric folds (40 cm from ? the incisors) extending to the Z-line (33 cm from the incisors). ? Multiple tongues of salmon-colored mucosa were present at 33 cm and ? scattered islands of salmon-colored mucosa were present from 33 to 40 ? cm. The maximum longitudinal extent of these esophageal mucosal changes ? was 7 cm in length. No biopsies or other specimens were collected for ? this exam. ? There is no endoscopic evidence of varices in the distal esophagus. ? There is no endoscopic evidence of ulceration in the gastric antrum. ? Moderate portal hypertensive gastropathy was found in the gastric antrum. ? The duodenal bulb and second portion of the duodenum were normal. ? Estimated Blood Loss: ? Estimated blood loss: none. Complications: ?No immediate complications. Impression: ? - Esophageal mucosal changes consistent with ?long-segment Holt's esophagus. No specimens ?collected. ?- Portal hypertensive gastropathy. ?- Normal duodenal bulb and second portion of the ?duodenum. Recommendation: ? - Resume previous diet. ?-Continue PPI BID, reflux precautions ?- Return to GI clinic as previously scheduled. ?- Discharge patient to home. ?- Continue present medications. ?- Patient has a contact number available for ?emergencies. The signs and symptoms of potential ?delayed complications were discussed with the ?patient. Return to normal activities tomorrow. ?Written discharge instructions were provided to the ?patient. ?- Discharge patient to home (ambulatory). ?- Follow an antireflux regimen. ? Attending Participation: ??I was present and participated during the entire ?procedure, including non-lee portions. ? Procedure Code(s): ? --- Professional --- ? 34194, Esophagogastroduode noscopy, flexible, transoral; diagnostic, ? including collection of specimen(s) by brushing or washing, when ? performed (separate procedure) Diagnosis Code(s): ?--- Professional --- ?K76.6, Portal hypertension ?K22.70, Holt's esophagus without dysplasia CPT copyright 2019 [employer]. All rights reserved. The codes documented in this report are preliminary and upon finisher denture review may be revised to meet current compliance requirements. Amos Pabon, 06/18/2022 9:47:50 AM Note Initiated On: 06/18/2022 9:04 AM Number of Addenda: 0 ? [facility] ? [address] [place], [place] [id number] [place] [address] [employer]OVATION 06/18/2022 9:04 AM CDT Amos Pabon MD GI PROCEDURE ORDERAB LES [facility] * PATHOLOGY TISSUE (03/05/2022 9:47 AM CDT) Case Report Surgical Pathology Report ? Case: [id number] ? Authorizing Provider: ??Amos Pabon MD ?Collected: ? 03/05/2022 09:47 AM ? Ordering Location: ? [facility] ?Received: ?03/05/2022 11:35 AM ? Pathologist: ? Елена Stubbs MD ? Specimen: ?Gastric, . ??gastric bx R/O H pylori ? 03/06/2022 12:19 PM [facility] Final Diagnosis Stomach, biopsy (A): - Mild reactive changes and proton pump inhibitor effect - No active inflammation or H. pylori organisms (H&E examination) 03/06/2022 12:19 PM [facility] PATHOLOGY LAB Microscopic Description and Comment Microscopic examination substantiates the final diagnosis. 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 Operative procedure/findings: EGD - few non-bleeding superficial gastric ulcers in antrum, biopsied. 03/06/2022 12:19 PM [facility] PATHOLOGY LAB Gross Description The requisition and specimen(s) are identified with the patient's name Lukas Diaz. Received in formalin, specimen A , are 4 pink-briscoe tissues, 0.1-0.7 cm in greatest dimension and 1.3 x 0.2 x 0.2 cm in aggregate, submitted in toto in cassette A1. DF 03/06/2022 12:19 PM [facility] PATHOLOGY LAB Disclaimer The performance characteristics of all immunohistochemical and indirect immunofluorescence stains (if any) cited in this report were determined by the Histopathology Laboratory of [facility]. Some of these tests were developed by our own laboratory and have not been cleared or approved by the US Food and Drug Administration. The FDA does not require this test to go through premarket FDA review. These tests are used for clinical purposes. They should not be regarded as investigational or for research. This laboratory is certified under the Clinical Laboratory Improvement Amendments (CLIA) as qualified to perform high complexity clinical laboratory testing. This case has been personally reviewed and interpreted by the attending (teaching) pathologist. 03/06/2022 12:19 PM CDT [facility] PATHOLOGY LAB Embedded Images 03/06/2022 12:19 PM CDT [facility] PATHOLOGY LAB Biopsy, NOS GASTRIC CONTENTS SPECIMEN / Unknown 03/05/2022 9:47 AM CDT 03/05/2022 11:35 AM CDT Comment:Pre-op diagnosis: Other cirrhosis of liver [K74.69] Amos Pabon MD LAB - PATHOLOGY/CYTO LOGY ORDERABLES [facility] PATHOLOGY LAB [address] [place] [address], [facility] [phone] * EGD (03/05/2022 9:23 AM CDT) Report Endoscopy POC Endoscopy Department Report __ _ Patient Name: Lukas Diaz ? Procedure Date: 03/05/2022 9:23 AM ?Date of : 1985 Classification: Outpatient ?Gender: Male Ethnicity: Not or ? Race: White __ _ Providers: ?Amos Pbaon Referring MD: ? Major LantiguaKaran Kraft (Referring MD) Procedure: ?Upper GI endoscopy Indications: ?2nd degree variceal eradication (following bleed) Medications: ?Propofol per Anesthesia, See the Anesthesia note ?for documentation of the administered medications Description of Procedure: Pre-Anesthesia Assessment: ?- Pre-procedure physical examination revealed no ?contraindications to sedation. ?- After reviewing the risks and benefits, the ?patient was deemed in satisfactory condition to ?undergo the procedure. ?- The anesthesia plan was to use monitored ?anesthesia care (MAC). ?- Immediately prior to administration of ?medications, the patient was re-assessed for ?adequacy to receive sedatives. ?After obtaining informed consent, the endoscope was ?passed under direct vision. Throughout the ?procedure, the patient's blood pressure, pulse, and ?oxygen saturations were monitored continuously. The ?[id number]-[id number] was introduced through the mouth, and ?advanced to the second part of duodenum. The upper ?GI endoscopy was accomplished without difficulty. ?The patient tolerated the procedure well. ? Findings: ? There is no endoscopic evidence of varices in the lower third of the ? esophagus. ? LA Grade C (one or more mucosal breaks continuous between tops of 2 or ? more mucosal folds, less than 75% circumference) esophagitis was found ? in the distal esophagus. ? The esophagus and gastroesophageal junction were examined with white ? light and narrow band imaging (NBI). There were esophageal mucosal ? changes suggestive of long-segment Holt's esophagus. These changes ? involved the mucosa at the upper extent of the gastric folds (40 cm from ? the incisors) extending to the Z-line (33 cm from the incisors). Tongues ? of salmon-colored mucosa were present and scattered islands of ? salmon-colored mucosa were present. The maximum longitudinal extent of ? these esophageal mucosal changes was 7 cm in length. ? Few non-bleeding superficial gastric ulcers with a clean ulcer base ? (Jett Class III) were found in the gastric antrum. Biopsies were ? taken with a cold forceps for Helicobacter pylori testing. ? The examined duodenum was normal. ? Estimated Blood Loss: ? Estimated blood loss: none. Complications: ?No immediate complications. Impression: ? - LA Grade C reflux esophagitis. 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 ?- Non-bleeding gastric ulcers with a clean ulcer ?base (Jett Class III). Biopsied. ?- Normal examined duodenum. Recommendation: ? - Patient has a contact number available for ?emergencies. The signs and symptoms of potential ?delayed complications were discussed with the ?patient. Return to normal activities tomorrow. ?Written discharge instructions were provided to the ?patient. ?- Discharge patient to home (ambulatory). ?- Resume previous diet. ?- Continue present medications. ?- No aspirin, ibuprofen, naproxen, or other ?non-steroidal anti-inflammatory drugs. ?- Follow an antireflux regimen. ?- Await pathology results. ?- Repeat upper endoscopy in 3 months to check ?healing. ?- Return to referring physician at appointment to ?be scheduled. ?- The findings and recommendations were discussed ?with the patient. ? Attending Participation: ??I personally performed the entire procedure. ? Procedure Code(s): ? --- Professional --- ? 71073, Esophagogastroduode noscopy, flexible, transoral; with biopsy, ? single or multiple Diagnosis Code(s): ?--- Professional --- ?K21.0, Gastro-esophageal reflux disease with ?esophagitis ?K22.8, Other specified diseases of esophagus ?K25.9, Gastric ulcer, unspecified as acute or ?chronic, without hemorrhage or perforation ?I85.00, Esophageal varices without bleeding CPT copyright 2019 [employer]. All rights reserved. The codes documented in this report are preliminary and upon finisher denture review may be revised to meet current compliance requirements. Amos Pabon, 03/05/2022 9:59:19 AM Note Initiated On: 03/05/2022 9:23 AM Number of Addenda: 0 ? [facility] ? [address] [place] [address] [facility] 03/05/2022 9:23 AM CDT Amos Pabon MD GI PROCEDURE ORDERAB LES Performing Organization Address [facility]/ZIP Co de Phone Number [facility] * ALPHA FETOPROTEIN BLOOD TUMOR MARKER (02/16/2022 2:26 PM CDT) Only the most recent of2 resultswithin the time period is included. [facility] Alpha-Fetoprote in Tumor Marker 2.9 <=8.3 ng/mL 02/16/2022 4:09 PM CDT [facility] Comment: AFP values will vary depending on testing procedure used. Results are not comparable across different methods. AFP values obtained by [facility] using an Jenkins Alinity Immunoassay. Blood BLOOD SPECIMEN / Unknown Lab Venipuncture / Unknown 02/16/2022 2:26 PM CDT 02/16/2022 3:24 PM CDT Amos Pabon MD LAB - CHEMISTRY ORDE RABVIDA Performing Organization Address City/[facility]/ZIP Co de Phone Number [facility] [address] [place] [address], [facility] [phone] * (ABNORMAL) BASIC METABOLIC PANEL (CALCIUM TOTAL) (02/16/2022 2:26 PM CDT) Only the most recent of2 resultswithin the time period is included. [facility] BUN 9 7 - 26 mg/dL 02/16/2022 3:50 PM CDT [facility] Creatinine 0.76 0.71 - 1.16 mg/dL 02/16/2022 3:50 PM CDT [facility] Sodium 139 136 - 145 mmol/L 02/16/2022 3:50 PM CDT [facility] Potassium 3.7 3.5 - 4.5 mmol/L 02/16/2022 3:50 PM T [facility] Chloride 98 98 - 107 mmol/L 02/16/2022 3:50 PM T [facility] CO2 31(H) 22 - 29 mmol/L 02/16/2022 3:50 PM T [facility] Glucose 70 70 - 115 mg/dL 02/16/2022 3:50 PM T [facility] Calcium 10.4(H) 8.4 - 10.2 mg/dL 02/16/2022 3:50 PM T [facility] Anion Gap 14 8 - 18 02/16/2022 3:50 PM [facility] BUN/Creatinine Ratio 12 7 - 23 02/16/2022 3:50 PM [facility] Osmolality Calculated 285 270 - 300 mOsm/kg 02/16/2022 3:50 PM [facility] eGFR by CKD-EPI >90 >=90 mL/min/1.7 3 m2 02/16/2022 3:50 PM [facility] Blood BLOOD SPECIMEN / Unknown Lab Venipuncture / Unknown 02/16/2022 2:26 PM CDT 02/16/2022 3:20 PM CDT Amos Pabon MD LAB - CHEMISTRY ORDE [facility] Organization Address City/State/ZIP Co de Phone Number [facility] [address] [place] [address], [facility] [phone] * (ABNORMAL) HEPATIC FUNCTION PANEL (02/16/2022 2:26 PM CDT) Only the most recent of2 resultswithin the time period is included. Protein Total 8.9(H) 6.0 - 8.3 g/dL 022 3:50 PM T [facility] Albumin 4.0 3.4 - 5.0 g/dL 02/16/2022 3:50 PM T [facility] Bilirubin Total 0.5 0.2 - 1.2 mg/dL 01/24 3:50 PM CDT [facility] Bilirubin Conjugated 0.3 0.1 - 0.5 mg/dL 02/16/2022 3:50 PM T [facility] Bilirubin Unconjugated 0.2 Unconjugated Bilirubin is a calculated value: Reference ranges have not been established. mg/dL 02/16/2022 3:50 PM CDT [facility] Alkaline Phosphatase 130 40 - 150 U/L 02/16/2022 3:50 PM CDT [facility] ALT 20 5 - 55 U/L 02/16/2022 3:50 PM T [facility] AST 24 5 - 34 U/L 02/16/2022 3:50 PM T [facility] Albumin/Globulin Ratio 0.8(L) 1.1 - 2.3 02/16/2022 3:50 PM [facility] Blood BLOOD SPECIMEN / Unknown Lab Venipuncture / Unknown 02/16/2022 2:26 PM CDT 02/16/2022 3:20 PM CDT Amos Pabon MD LAB - CHEMISTRY KURT ZARAGOZA [facility] Organization Address City/State/ZIP Co de Phone Number [facility] [address] [place] [phone], [facility] [phone] * (ABNORMAL) VITAMIN D 25-HYDROXY (12/19/2021 1:35 AM [facility]) [facility] Vitamin D, 25 Hydroxy 7.0(L) 30.0 - 80.0 ng/mL 12/19/2021 2:30 AM [facility] Comment: The recommendations for 25-Hydroxy Vitamin D clinical decision points are as follows: ? Deficient: ? <20.0 ng/mL ? Insufficient: ??20.0 - 29.9 ng/mL ? Sufficient: ? > or =30.0 ng/mL If the 25-Hydroxy Vitamin D results are inconsitent with clinical evidence, it is recommended that follow-up testing using a method such as LC/MS/MS be performed to confirm the result. Reference: ?The Endocrine Society Clinical Practice Guidelines. 2010 ? Blood BLOOD SPECIMEN / Unknown Lab Venipuncture / Unknown 12/19/2021 1:35 AM [facility] 12/19/2021 1:46 AM [facility] Anastasia Chowdhury INORGANIC CHEMICAL TECHNICIAN-HOME CARE PHYSICAL THERAPIST LAB - CHEMISTR Y ORDERABLES Performing Organization Address [facility]/State/ZIP Co de Phone Number [address] [address], [facility] [phone] * CT HIP LEFT WO CONTRAST (12/18/2021 6:44 AM [facility]) Anatomical Region Laterality Modality Lower Extremity Computed Tomogra phy 12/18/2021 6:48 AM [facility] Impressions 12/18/2021 8:00 AM [facility] Impression: Displaced left femoral neck fracture, age-indeterminate. Cannot exclude a small posterior-superior acetabular wall fracture. See comments above. Report drafted by Shaun Marei (resident) I, Dr. VALENTE MCDUFFIE MD have personally reviewed and interpreted this examination/study. This report was electronically signed by VALENTE MCDUFFIE MD ??on 12/18/2021 8:00 AM . Narrative 12/18/2021 8:00 AM [facility] Procedure Information DATE: 12/18/2021 6:45 AM EXAMINATION: Computed tomography (CT) of the left hip without contrast TECHNIQUE: CT of the left hip was performed without contrast according to standard protocol. Clinical Information HISTORY: S72.002A: Closed fracture of left hip, initial encounter COMPARISON: Left hip radiograph 12/17/2021 Findings There is a comminuted moderately displaced subcapital fracture of the left femoral neck. The fracture is displaced by approximately 2 cm and there is varus angulation. There are multiple areas of high attenuation material in and adjacent to the hip joint. This appears to represent small fracture fragments and callus, the callus suggesting a subacute age. Residual synovial/joint capsule enhancement could be contributing if there has been recent intravenous contrast administration elsewhere. Correlation with history and medical records is recommended. A curvilinear area of high attenuation adjacent to the posterior superior aspect of the acetabulum may represent same process or a mildly displaced posterior wall fracture (series 3 image [id number]). ??The joint space is normal. There is no dislocation. Procedure Note Valente Mcduffie MD - 12/18/2021 Procedure Information DATE: 12/18/2021 6:45 AM EXAMINATION: Computed tomography (CT) of the left hip without contrast TECHNIQUE: CT of the left hip was performed without contrast according to standard protocol. Clinical Information HISTORY: S72.002A: Closed fracture of left hip, initial encounter COMPARISON: Left hip radiograph 12/17/2021 Findings There is a comminuted moderately displaced subcapital fracture of theleft femoral neck. The fracture is displaced by approximately 2 cm and thereis varus angulation. There are multiple areas of high attenuation materialin and adjacent to the hip joint. This appears to represent small fracture fragments and callus, the callus suggesting a subacute age. Residual synovial/joint capsule enhancement could be contributing if there hasbeen recent intravenous contrast administration elsewhere. Correlation with history and medical records is recommended. A curvilinear area of high attenuation adjacent to the posterior superior aspect of the acetabulum may represent same process or a mildly displaced posterior wall fracture (series 3 image [id number]). The joint space is normal. There is no dislocation. Impression: Displaced left femoral neck fracture, age-indeterminate. Cannot exclude a small posterior-superior acetabular wall fracture. See comments above. Report drafted by Shaun Marie (resident) IDr. VALENTE MD have personally reviewed and interpreted this examination/study. This report was electronically signed by VALENTE MCDUFFIE MD on12/18/2021 8:00 AM . Lima Thompson MD CT ORDERABLES * (ABNORMAL) URINE DRUG SCREEN IMMUNOASSAY (12/18/2021 4:57 AM [facility]) [facility] Amphetamines Screen Urine Positive(A) Negative : < 1000 ng/mL 12/18/2021 5:21 AM [facility] Comment: Positive urine amphetamine screening results should be confirmed by another generally accepted non-immunological method such as gas chromatography or mass spectrometry. ? Barbiturates Screen Urine Negative Negative : < 200 ng/mL 12/18/2021 5:21 AM [facility] Benzodiazepine Screen Urine Negative Negative : < 200 ng/mL 12/18/2021 5:21 AM [facility] Opiates Urine Positive(A) Negative : < 300 ng/mL 12/18/2021 5:21 AM [facility] Comment:Positive urine opiat e screening results should be confirmed by another generally accepted non-immunological method such as gas chromatography or mass spectrometry. Cocaine Metabolites Urine Negative Negative : < 300 ng/mL 12/18/2021 5:21 AM [facility] Phencyclidine Screen Urine Negative Negative : < 25 ng/ml 12/18/2021 5:21 AM [facility] Cannabinoids Screen Urine Positive(A) Negative : <50 ng/mL 12/18/2021 5:21 AM [facility] Comment:Positive urine canna binoids (THC) screening results should be confirmed by another generally accepted non-immunological method such as gas chromatography or mass spectrometry. Methadone Screen Urine Negative Negative : < 300 ng/mL 12/18/2021 5:21 AM [facility] Fentanyl Screen Urine Positive(A) Negative : <1.0 ng/mL 12/18/2021 5:21 AM [facility] Comment:Positive urine fenta nyl screening results should be confirmed by another generally accepted non-immunological method such as gas chromatography or mass spectrometry. Urine URINE / Unknown Collection / Unknown 12/18/2021 4:[address] [facility] 12/18/2021 4:59 AM [facility] - 12/18/2021 5:[address] [facility] The Urine Toxicology Screening Panel does not screen for Propoxyphene, Meprobamate, Carisoprodol, Trazodone, cgph-kic-qnxaosk medications and/or volatiles (Acetone, Isopropanol, Methanol or Ethylene Glycol). Ethanol, Salicylate, Acetaminophen, Tricyclic Antidepressants and several therapeutic drugs may be individually assayed in serum or plasma specimen. Toxicology testing by the [facility] is an aid to medical diagnosis and treatment of patients. No documented chain of custody was maintained. Results are intended to be used for clinical purposes only. ? Lima Thompson MD LAB - URINE CHEMISTR Y ORDERABLES Performing Organization Address [facility] de Phone Number [facility] [address] [place] [address], [facility] [phone] * BLOOD TYPE VERIFICATION (12/18/2021 4:44 AM [facility]) [facility] ABO Rh B POS 12/18/2021 5:1 9 AM [facility] Blood Bank BLOOD SPECIMEN / Unknown Lab Venipuncture / Unknown 12/18/2021 4:44 AM [facility] 12/18/2021 4:51 AM [facility] Lima Thompson MD LAB - BLOOD BANK ORD ERABLES Performing Organization Address [facility] de Phone Number [facility] [address] [place] [address], [place] [phone] * SARS-COV-2 (COVID-19)+INFLU A+B PCR RAPID (12/18/2021 4:17 AM [facility]) [facility] COVID-19 PCR Not detected Not detected 12/18/19 6:44 AM [facility] Influenza A Rapid MISAEL Not Detected Not Detected 12/18/2021 6:44 AM [facility] Influenza B MISAEL Rapid Not Detected Not Detected 12/18/2021 6:44 AM [facility] Microbiology SPECIMEN FROM NASOPHARYNGEAL STRUCTURE / Unknown Collection / Unknown 12/18/2021 4:17 AM [facility] 12/18/2021 6:15 AM [facility] Narrative [facility] - 12/18/2021 6:44 AM [facility] Influenza assay performed by Nucleic Acid Amplification. Results do not exclude the possibility of a mixed viral infection. NOTE: ??Detecting and identifying specific viral nucleic acids from individuals exhibiting signs and symptoms of respiratory infection aids in the diagnosis of respiratory infection, if used in conjunction with other clinical and laboratory findings. The results of this test should not be used as the sole basis for diagnosis, treatment, or patient management decisions. This nucleic acid amplification assay performance was validated by [facility]. This test has been authorized by the Food and Drug administration (FDA)under an Emergency??Use Authorization (EUA). This test has been validated in accordance with the FDA's guidance document Policy for Diagnostic Testing in Laboratories Certified to perform High Complexity Testing under CLIA prior to Emergency Use Authorization for Coronavirus Disease-2019 during the Public Health Emergency issued on December 23, 2019. FDA independent review of this validation is pending. This test is only authorized for the duration of time the declaration that circumstances exist justifying the authorization of emergency use of in vitro diagnostic tests for detection of SARS-CoV-2 virus and/or diagnosis of COVID-19 infection under section 564(b)(1) of the Act, 21 U.S.C 360bbb-3 (b)(1), unless the authorization is terminated or revoked sooner. Fact Sheets for this EUA assay are available upon request. Lima Thompson MD LAB - MICROBIOLOGY O RDERABLES [facility] [address] [place] [address], [facility] [phone] * TYPE + SCREEN PANEL (12/18/2021 4:17 AM [facility]) Antibody Screen NEG 5:14 AM [facility] ABO Rh B POS 12/18/2021 5:14 AM [facility] Blood Bank BLOOD SPECIMEN / Unknown Venipuncture / Unknown 12/18/2021 4:17 AM [facility] 12/18/2021 4:29 AM [facility] Lima Thompson MD LAB - BLOOD BANK ORD ERABLES [facility] [address] [place] [address], [facility] [phone] * XR PELVIS W LEFT HIP 2VW (12/17/2021 11:05 PM [facility]) Anatomical Region Laterality Modality Pelvis Radiographic Юлия ging 12/17/2021 11:0 6 PM [facility] Impressions 12/18/2021 10:05 AM [facility] IMPRESSION: Superolaterally displaced fracture of the left femoral neck. Report dictated by Shama Landry M.D. (radiology technologist). I, Dr. ALO VAZQUEZ MD, FR have personally reviewed and interpreted this examination/study. This report was electronically signed by ALO VAZQUEZ MD, FRCR ??on 12/18/2021 10:05 AM . Narrative 12/18/2021 10:05 AM [facility] EXAMINATION: XR PELVIS W LEFT HIP 2VW HISTORY: S72.002A: Closed fracture of left hip, initial encounter COMPARISON: No prior study is available for comparison. FINDINGS: Superolaterally displaced fracture of the left femoral neck. The femoral heads appear well-seated within their respective acetabula. The pubic symphysis is intact. Bone density and texture are normal. The sacroiliac joints are normal. Procedure Note Alo Vazquez MD - 12/18/2021 EXAMINATION: XR PELVIS W LEFT HIP 2VW HISTORY: S72.002A: Closed fracture of left hip, initial encounter COMPARISON: No prior study is available for comparison. FINDINGS: Superolaterally displaced fracture of the left femoral neck. The femoral heads appear well-seated within their respective acetabula. The pubic symphysis is intact. Bone density and texture are normal. The sacroiliac joints are normal. IMPRESSION: Superolaterally displaced fracture of the left femoral neck. Report dictated by Shama Landry M.D. (radiology technologist). IDr. ALO MD, [facility] have personally reviewedand interpreted this examination/study. This report was electronically signed by ALO VAZQUEZ MD, [facility] on 12/18/2021 10:05 AM . Lima Thompson MD DIAGNOSTIC IMAGING O RDERABLES * TIFFANY BLOOD SCREEN W/REFLEX TITER (10/01/2021 11:38 AM [facility]IL [facility]) TIFFANY IgG None Detected None Detected 10/04/2021 12:34 AM [facility] ([facility]) Comment: If suspicion of connective tissue disease is strong and TIFFANY EIA is negative, consider testing for TIFFANY by IFA ([id number]). INTERPRETIVE INFORMATION: Anti-Nuclear Antibodies (TIFFANY), IgG by SAVANNAH Antinuclear Antibodies (TIFFANY), IgG by SAVANNAH: TIFFANY specimens are screened using enzyme-linked immunosorbent assay (SAVANNAH) methodology. All SAVANNAH results reported as Detected are further tested by indirect fluorescent assay (IFA) using HEp-2 substrate with an IgG-specific conjugate. The TIFFANY SAVANNAH screen is designed to detect antibodies against dsDNA, histones, SS-A (Ro), SS-B (La), Clayton, Clayton/MANUFACTURING MACHINE OPERATOR, Scl-70, Nuris-1, centromeric proteins, other antigens extracted from the HEp-2 cell nucleus. TIFFANY SAVANNAH assays have been reported to have lower sensitivities than TIFFANY IFA for systemic autoimmune rheumatic diseases (SARD). Negative results do not necessarily rule out SARD. Performed By: [facility] [address] [place] [address] Technology Solutions Architect: Ivanna Ballard MD Blood BLOOD SPECIMEN / Unknown Lab Venipuncture / Unknown 10/01/2021 11:38 AM [facility] 10/01/2021 11:45 AM OIL [facility] Amos Pabon MD LAB - CHEMISTRY KURT ZARAGOZA [facility] Organization Address City/State/ZIP Co de Phone Number [facility] Track [facility]) [address] [place] [address], [facility] * [id number] BLOOD (10/01/2021 11:38 AM OIL PROCESS STILLMAN) Lploo-7-Pbpvbm ypsin 159 90 - 200 mg/dL 10/01/2021 12:55 PM [facility] Blood BLOOD SPECIMEN / Unknown Lab Venipuncture / Unknown 10/01/2021 11:38 AM OIL PROCESS STILLMAN 10/01/2021 11:46 AM OIL PROCESS STILLMAN Amos Pabon MD LAB - CHEMISTRY KURT ZARAGOZA Performing Organization Address City/[facility]/ZIP Co de Phone Number [address] [address], [facility] [phone] * (ABNORMAL) IRON BLOOD (10/01/2021 11:38 AM OIL PROCESS STILLMAN) Pathologist [facility] Iron 17(L) 50 - 175 ug/dL 10/01/2021 12:55 PM [facility] Blood BLOOD SPECIMEN / Unknown Lab Venipuncture / Unknown 10/01/2021 11:38 AM OIL PROCESS STILLMAN 10/01/2021 11:46 AM OIL PROCESS STILLMAN Amos Pabon MD LAB - CHEMISTRY KURT ZARAGOZA Performing Organization Address [facility] Co de Phone Number [address] [address], [facility] [phone] * (ABNORMAL) HEPATITIS B SURFACE ANTIBODY (10/01/2021 11:38 AM OIL PROCESS STILLMAN) Pathologist [facility] Hepatitis B Virus Surface Antibody Reactive( A) Non-react young 10/01/2021 1:14 PM [facility] Comment: > 12 mIU/mL Hepatitis B surface Antibody (HBsAb). Reactive for HBsAb - individual is considered immune to Hepatitis B Virus infection. Hepatitis B Surface Antibody Quantitative 50.9(H) <8.0 mIU/mL 10/01/2021 1:14 PM [facility] Comment: Hepatitis B Surface Antibody Numeric Result Interpretation: ? Nonreactive: ?<8.0 mIU/mL ? Indeterminate: ??8.0 - 12.0 mIU/mL ? Reactive: ?>12.0 mIU/mL ? Blood BLOOD SPECIMEN / Unknown Lab Venipuncture / Unknown 10/01/2021 11:38 AM OIL PROCESS STILLMAN 10/01/2021 11:46 AM OIL PROCESS STILLMAN Amos Pabon MD LAB - CHEMISTRY KURT ZARAGOZA Performing Organization Address City/[facility]/ZIP Co de Phone Number [address] [address], [place] [phone] * HEPATITIS B CORE ANTIBODY (10/01/2021 11:38 AM OIL PROCESS STILLMAN) HBc Antibody Total Non-reacti ve Non-reacti ve 10/01/2021 1:14 PM OIL PROCESS STILLMAN [facility] Blood BLOOD SPECIMEN / Unknown Lab Venipuncture / Unknown 10/01/2021 11:38 AM OIL PROCESS STILLMAN 10/01/2021 11:46 AM OIL PROCESS STILLMAN Amos Pabon MD LAB - CHEMISTRY KURT ZARAGOZA Performing Organization Address [facility] Co de Phone Number [address] [address], [place] [phone] * HEPATITIS B SURFACE ANTIGEN W RFLX CONFIRMATION (10/01/2021 11:38 AM OIL PROCESS STILLMAN) Hepatitis B Virus Surface Antigen Non-reacti ve Non-reacti ve 10/01/2021 1:14 PM OIL PROCESS STILLMAN [facility] Blood BLOOD SPECIMEN / Unknown Lab Venipuncture / Unknown 10/01/2021 11:38 AM OIL PROCESS STILLMAN 10/01/2021 11:46 AM OIL PROCESS STILLMAN Amos Pabon MD LAB - CHEMISTRY KURT ZARAGOZA Performing Organization Address City/[facility] Co de Phone Number [address] [address], [place] [phone] * (ABNORMAL) IGG BLOOD (10/01/2021 11:38 AM OIL PROCESS STILLMAN) Pathologist [facility] IgG 2,513(H) 767-1,590 mg/dL 10/01/2021 12:55 PM OIL PROCESS STILLMAN [facility] Blood BLOOD SPECIMEN / Unknown Lab Venipuncture / Unknown 10/01/2021 11:38 AM OIL PROCESS STILLMAN 10/01/2021 11:46 AM OIL PROCESS STILLMAN Amos Pabon MD LAB - CHEMISTRY KURT ZARAGOZA Performing Organization Address City/[facility]/ZIP Co de Phone Number [address] [address], [facility] [phone] * HEPATITIS C ANTIBODY (10/01/2021 11:38 AM OIL PROCESS STILLMAN) [facility] Hepatitis C Antibody Non-react young Non-reac tive 10/01/2021 1:14 PM OIL PROCESS STILLMAN [facility] Comment:Hepatitis C Antibody screen indicates no serologic evidence of past or current infection with Hepatitis C Virus. Patients with unexplained liver disease who are immunocompromised or suspected of having acute Hepatitis C infection may benefit from Nucleic Acid Test (MARIBELL) for Hepatitis C Viral RNA to confirm Hepatitis C status. Blood BLOOD SPECIMEN / Unknown Lab Venipuncture / Unknown 10/01/2021 11:38 AM OIL PROCESS STILLMAN 10/01/2021 11:46 AM OIL PROCESS STILLMAN Amos Pabon MD LAB - CHEMISTRY KURT ZARAGOZA Performing Organization Address [facility] Co de Phone Number [address] [address], [facility] [phone] * (ABNORMAL) HEPATITIS A ANTIBODY (10/01/2021 11:38 AM OIL PROCESS STILLMAN) [facility] Hepatitis A Virus Antibody Total Positive( A) Negative 10/03/2021 5:38 PM OIL PROCESS STILLMAN [facility] ([facility]) Comment: The positive anti-HAV is consistent with recent or remote Hepatitis A infection or antibody response to HAV vaccination. False positive anti-HAV can occur. Performed by [employer], [address] [place] [address] [email or web address], Ivanna Ballard MD, Lab. Director Blood BLOOD SPECIMEN / Unknown Lab Venipuncture / Unknown 10/01/2021 11:38 AM OIL PROCESS STILLMAN 10/01/2021 11:45 AM OIL PROCESS STILLMAN Amos Pabon MD LAB - CHEMISTRY KURT ZARAGOZA [facility]) [address] * (ABNORMAL) FERRITIN (10/01/2021 11:38 AM OIL PROCESS STILLMAN) Ferritin 19(L) 22 - 275 ng/mL 10/01/2021 1:14 PM OIL PROCESS STILLMAN [facility] Blood BLOOD SPECIMEN / Unknown Lab Venipuncture / Unknown 10/01/2021 11:38 AM OIL PROCESS STILLMAN 10/01/2021 11:46 AM OIL PROCESS STILLMAN Amos Pabon MD LAB - CHEMISTRY KURT ZARAGOZA [facility] [address] [place] [address], [facility] [phone] Care Teams Telecommunication Lines Repairer Relationship Specialty Start Date End Date Teodoro Lopez PCP - General 05/17/24 Eric Oconnell MD Hospitalist 10/10/21
--- OUTSIDE RECORDS SUMMARY | 2024-10-19 20:12 | XMS_ITS | Encounter Summary ---
Author Organization [facility] Health Address [address] [facility] [place] [address] Care Team Providers Care Mobile Home Lot Utility Worker Name Role Phone Eric Oconnell MD Unavailable [phone] Gregorio James MD Primary Care Provider [phone] Teodoro Lopez Primary Care Provider Unavailabl e Encounter Details Date Type Department Care Team (Late st Contact Info) Description 05/01/2024 Telephone [facility] - [address] [facility], [place] [address] Nahed Quinonez, ALFREDO Social History Tobacco Use Types Packs/Day Years [...] encounter Miscellaneous Notes * Telephone Encounter - Nahed Quinonez RN - 05/01/2024 4:34 PM CDT Call received from pt to report need for new PA for Xifaxan. Reports [facility] denies pt need for Xifiaxan while taking lactulose. RN place request for pt assistance renewal for pt. New med list including both medications sent to facility. Alma Rojo [facility] notified for pt assistance renewal. documented in this encounter Plan of Treatment Upcoming Encounters Date Type Department Care Team (Late st Contact Info) Description 11/29/2024 8:30 AM MASS SPECTROMETRY MANAGER Office Visit [facility] - Orthopedic Surgery [address] [facility] [place] [address] Toño Cabrera MD [address] [facility] 280 [place] [address] 01/08/2025 8:00 AM CDT Appointment [facility] [address]01 [place] [phone] 01/08/2025 9:00 AM CDT Office Visit [facility] - [place] [address] [place] [address], [place] [phone] Amos Pabon MD [address] [place] [address] [place] [address] documented as of this encounter Goals Goal [...] on filedocumented in this encounter Care Teams Mobile Home Lot Utility Worker Relationship Specialty Start Date End Date Gregorio James MD [address] [place] [phone] PCP - General 08/11/22 05/16/24 Teodoro Lopez PCP - General 05/17/24 Eric Oconnell MD Hospitalist 10/10/21 documented as of this encounter
--- OUTSIDE RECORDS SUMMARY | 2024-10-19 20:12 | XMS_ITS | Encounter Summary ---
Author Organization [facility] Address [address] [place] [address] Care Team Providers Care Gas Check Pad Maker Name Role Phone Eric Oconnell MD Unavailable [phone] Teodoro Lopez Primary Care Provider Unavailabl e Reason for Referral * Radiology Services (Routine) - Open Specialty Diagnoses / Procedures Referred By Contac t Referred To Contact Diagnoses Cirrhosis of liver with ascites, unspecified hepatic cirrhosis type (HCC) Procedures US Abdomen Limited Amos Pabon MD [address] [place] [address] [address] [place] [address] Referral ID Status Reason Start Date Expiration Date Visits Re quested Visits Authorized [id number] Open 06/06/2024 06/06/2025 1 1 Encounter Details Date Type Department Care Team (Late st Contact Info) Description 06/06/2024 Orders Only [facility] - GI [address] [place] [address], [place] [address] Amos Pabon MD [address] [place] [address] [address] [place] [address] Cirrhosis of liver with ascites, unspecified hepatic cirrhosis type (HCC) Social History Tobacco Use Types Packs/Day Years [...] st Contact Info) Description 11/29/2024 8:30 AM CHART COMPUTER Office Visit [facility] - Orthopedic Surgery [address] [facility] [place] [address] Toño Cabrera MD [address] [facility] 280 [place] [address] 01/08/2025 8:00 AM CDT Appointment [facility] [address] [place] [address] 01/08/2025 9:00 AM CDT Office Visit [facility] - [address] [facility] [place] [address] Amos Pabon MD [address] [place] [address] Scheduled Orders Name Type Priority Associated Diagnoses Orde r Schedule US Abdomen Limited Imaging Routine Cirrhosis of liver with ascites, unspecified hepatic cirrhosis type (HCC) 1 Occurrences starting 06/06/2024 until 06/06/2025 documented as of this encounter Goals Goal [...] Primary documented in this encounter Care Teams Gas Check Pad Maker Relationship Specialty Start Date End Date Teodoro Lopez PCP - General 05/17/24 Eric Oconnell MD Hospitalist 10/10/21 documented as of this encounter
--- OUTSIDE RECORDS SUMMARY | 2024-10-19 20:12 | XMS_ITS | Encounter Summary ---
Author Organization [facility] Health Address [address] [place] [address] Care Team Providers Care Jacquard Fixer Name Role Phone Eric Oconnell MD Unavailable [phone] Gregorio James MD Primary Care Provider [phone] Encounter Details Date Type Department Care Team (Latest Contact Info) Description 03/28/2024 Travel Social History Tobacco Use Types Packs/Day Years [...] st Contact Info) Description 11/29/2024 8:30 AM ELECTRONIC GAME DEVELOPER Office Visit [facility] - Orthopedic Surgery [address] [place] [address] Toño Cabrera MD [address] [address] 01/08/2025 8:00 AM CDT Appointment [facility] 1201 [place] [phone] 01/08/2025 9:00 AM CDT Office Visit [facility] - GI [address] [facility], [place] [phone] Amos Pabon MD [address] [place] [address] [place] [address] documented as of this encounter Goals Goal [...] on filedocumented in this encounter Care Teams Jacquard Fixer Relationship Specialty Start Date End Date Gregorio James MD [address] [place] [phone] PCP - General 08/11/22 05/16/24 Eric Oconnell MD Hospitalist 10/10/21 documented as of this encounter
--- OUTSIDE RECORDS SUMMARY | 2024-10-19 20:12 | XMS_ITS | Encounter Summary ---
Author Organization [facility] Address [address] [facility] [place] [address] Care Team Providers Care Corporate Financial Analyst Name Role Phone Eric Oconnell MD Unavailable [phone] Gregorio James MD Primary Care Provider [phone] Reason for Visit * Reason Onset Date Comments Medication Issue 05/02/2024 Encounter Details Date Type Department Care Team (Late st Contact Info) Description 05/02/2024 Telephone [facility] [place] [address] [place] [address], [place] [phone] Amos Pabon MD [address] [place] [address] [place] [address] Medication Issue Social History Tobacco Use Types Packs/Day Years [...] encounter Miscellaneous Notes * Telephone Encounter - Ashlie Fabian RN - 05/02/2024 8:25 AM CDT Patient calls stating he called yesterday about PA for Xifaxanin. Informed him that it takes a little while to get a PA. About two weeks. He states understanding documented in this encounter Plan of Treatment Upcoming Encounters Date Type Department Care Team (Late st Contact Info) Description 11/29/2024 8:30 AM LITIGATION LEGAL SECRETARY Office Visit [facility] - Orthopedic Surgery [address] [facility] [place] [address] Toño Cabrera MD [address] [facility] 280 [place] [address] 01/08/2025 8:00 AM CDT Appointment [facility] 1201 [place] [address] 01/08/2025 9:00 AM CDT Office Visit [facility] - GI [address] [place] [address], [place] [address] Amos Pabon MD [address] [place] [address] [place] [address] documented as of this encounter Goals Goal [...] on filedocumented in this encounter Care Teams Corporate Financial Analyst Relationship Specialty Start Date End Date Gregorio James MD [address] [place] [phone] PCP - General 08/11/22 05/16/24 Eric Oconnell MD Hospitalist 10/10/21 documented as of this encounter
--- OUTSIDE RECORDS SUMMARY | 2024-10-19 20:12 | XMS_ITS | Encounter Summary ---
Author Organization [facility] Address [address] [facility] [place] [address] Care Team Providers Care Bracer Name Role Phone Eric Oconnell MD Unavailable [phone] Teodoro Lopez Primary Care Provider Unavailabl e Encounter Details Date Type Department Care Team (Latest Contact Info) Description 05/17/2024 Travel Social History Tobacco Use Types Packs/Day [...] st Contact Info) Description 11/29/2024 8:30 AM WOVEN BLIND LOOM TENDER Office Visit [facility] - Orthopedic Surgery 10[address] [place] [address] Toño Cabrera MD [address] [address] 01/08/2025 8:00 AM CDT Appointment [facility] 12[address] [place] [phone] 01/08/2025 9:00 AM CDT Office Visit [facility] - GI [address] [facility], [place] [phone] Amos Pabon MD [address] [place] [address] [place] [address] documented as of this encounter Goals Goal [...] on filedocumented in this encounter Care Teams Bracer Relationship Specialty Start Date End Date Teodoro Lopez PCP - General 05/17/24 Eric Oconnell MD Hospitalist 10/10/21 documented as of this encounter
--- OUTSIDE RECORDS SUMMARY | 2024-10-19 20:12 | XMS_ITS | Encounter Summary ---
Author Organization [facility] Health Address [address] [place] [address] Care Team Providers Care Behavioral Analyst Name Role Phone Eric Oconnell MD Unavailable [phone] Gregorio James MD Primary Care Provider [phone] Encounter Details Date Type Department Care Team (Latest Contact Info) Description 08/25/2023 Travel Social History Tobacco Use Types Packs/Day [...] st Contact Info) Description 11/29/2024 8:30 AM DESK OPERATOR Office Visit [facility] - Orthopedic Surgery [address] [place] [address] Toño Cabrera MD 10[address] [facility] 280 [place] [address] 01/08/2025 8:00 AM CDT Appointment [facility] 12[address] [place] [address] 01/08/2025 9:00 AM CDT Office Visit [facility] - GI [address] [facility], [place] [address] Amos Pabon MD [address] [place] [address] [address] [facility] [place] [address] documented as of this encounter Goals Goal [...] on filedocumented in this encounter Care Teams Behavioral Analyst Relationship Specialty Start Date End Date Gregorio James MD [address] [phone] PCP - General 08/11/22 05/16/24 Eric Oconnell MD Hospitalist 10/10/21 documented as of this encounter
--- OUTSIDE RECORDS SUMMARY | 2024-10-19 20:12 | XMS_ITS | Encounter Summary ---
Author Organization [facility] Health Address [address] [facility] [place] [address] Care Team Providers Care Comber Fixer Name Role Phone Eric Oconnell MD Unavailable [phone] Gregorio James MD Primary Care Provider [phone] Encounter Details Date Type Department Care Team (Latest Contact Info) Description 05/19/2023 Travel Social History Tobacco Use Types Packs/Day Years Used Date Smoking Tobacco: Every Day Cigarettes Smokeless Tobacco: Never Comments:Not currently smoki ng at all, but often relapses Alcohol Use Standard Drinks/Week Comments Not Currently [...] st Contact Info) Description 11/29/2024 8:30 AM PLANNING AND ANALYSIS MANAGER Office Visit [facility] - Orthopedic Surgery [address] [facility] [place] [address] Toño Cabrera MD [address] [facility] 280 [place] [address] 01/08/2025 8:00 AM CDT Appointment [facility] 1201 [place] [phone] 01/08/2025 9:00 AM CDT Office Visit [facility] - GI [address] [facility], [place] [address] Amos Pabon MD [address] [place] [address] [address] [facility] [place] [address] documented as of this encounter Goals Goal [...] on filedocumented in this encounter Care Teams Comber Fixer Relationship Specialty Start Date End Date Gregorio James MD [address] [place] [phone] PCP - General 08/11/22 05/16/24 Eric Oconnell MD Hospitalist 10/10/21 documented as of this encounter
--- OUTSIDE RECORDS SUMMARY | 2024-10-19 20:12 | XMS_ITS | Encounter Summary ---
Author Organization [facility] Address [address] [facility] [place] [address] Care Team Providers Care Plastic Surgery Assistant Name Role Phone Eric Oconnell MD Unavailable [phone] Teodoro Lopez Primary Care Provider Unavailabl e Encounter Details Date Type Department Care Team (Latest Contact Info) Description 09/01/2024 Travel Social History Tobacco Use Types Packs/Day [...] st Contact Info) Description 11/29/2024 8:30 AM CLINIC MANAGER Office Visit [facility] - Orthopedic Surgery 10[address] [place] [address] Toño Cabrera MD [address] [address] 01/08/2025 8:00 AM CDT Appointment [facility] 1201 [place] [phone] 01/08/2025 9:00 AM CDT Office Visit [facility] - GI 1225 [facility], [place] [address] Amos Pabon MD [address] [place] [address] [place] [address] documented as of this encounter Goals Goal [...] on filedocumented in this encounter Care Teams Plastic Surgery Assistant Relationship Specialty Start Date End Date Teodoro Lopez PCP - General 05/17/24 Eric Oconnell MD Hospitalist 10/10/21 documented as of this encounter
--- OUTSIDE RECORDS SUMMARY | 2024-10-19 20:12 | XMS_ITS | Encounter Summary ---
Author Organization [facility] Health Address [address] [facility] [address] Care Team Providers Care Certified Pesticide Applicator Name Role Phone Eric Oconnell MD Unavailable [phone] Gregorio James MD Primary Care Provider [phone] Reason for Visit * Reason Onset Date Comments Results 08/27/2023 Encounter Details Date Type Department Care Team (Late st Contact Info) Description 08/27/2023 Telephone [facility] - [address] [place] [address] Sheridan Ng, RN Results Social History Tobacco Use Types Packs/Day Years [...] encounter Miscellaneous Notes * Telephone Encounter - Sheridan Ng RN - 08/27/2023 3:31 PM CDT Called patients facility and relayed message from Klarissa Rutledge NP, to RN: US is stable without any concerning changes to liver. Continue with plan to follow up in 6 months as scheduled with Dr. Pabon. documented in this encounter Plan of Treatment Upcoming Encounters Date Type Department Care Team (Late st Contact Info) Description 11/29/2024 8:30 AM PRESSURE TESTING TECHNICIAN Office Visit [facility] - Orthopedic Surgery [address] [facility] [place] [address] Toño Cabrera MD 10[address] [facility] 280 [place] [address] 01/08/2025 8:00 AM CDT Appointment [facility] 1201 [place] [address] 01/08/2025 9:00 AM CDT Office Visit [facility] - GI 1225 [facility], [place] [address] Amos Pabon MD [address] [place] [address] [place] [address] documented as of this encounter Goals Goal [...] on filedocumented in this encounter Care Teams Certified Pesticide Applicator Relationship Specialty Start Date End Date Gregorio James MD [address] [place] [phone] PCP - General 08/11/22 05/16/24 Eric Oconnell MD Hospitalist 10/10/21 documented as of this encounter
--- OUTSIDE RECORDS SUMMARY | 2024-10-19 20:12 | XMS_ITS | Encounter Summary ---
Author Organization [facility] Address [address] [place] [address] Care Team Providers Care Teacher Of The Hand[employer] Name Role Phone Eric Oconnell MD Unavailable [phone] Gregorio James MD Primary Care Provider [phone] Reason for Visit * Reason Comments Pain Abdominal Pt arrives via EMS d ue to RUQ pain. Pt is a resident of [facility] in [facility]. Pt states 2 days ago he was seen an [facility], but hey could not provide care. The pt states he then called his liver specialist who suggested he come to the ED. Pt states that he also has a L hip fracture, pt states the fracture was old, then he states it reoccurred and will be seen for that . The pt states n/v normal BM this am. * Auth/Cert (Routine) Specialty Diagnoses / Procedures Referred By Contac t Referred To Contact Referral ID Status Reason Start Date Expiration Date Visits Re quested Visits Authorized [id number] 1 1 Encounter Details Date Type Department Care Team (Latest Contact Info) Description 03/28/2024 10:21 PM CDT - 03/29/2024 9:35 PM CDT Emergency [facility] EMERGENCY DEPARTMENT [address] [place] [id number] Isaak Ibrahim MD [address] [place] [address] Tony Gonzales MD [address] [place] [address] Agusto Oswald MD [address] [address] Gastrointestinal hemorrhage with melena (Primary Dx); Shortness of breath; RUQ pain; Leukocytosis, unspecified type; Alcoholic cirrhosis of liver without ascites (HCC) Discharge Disposition: Home or Self Care Social [...] Mass Index 33.28 03/28/2024 6:10 PM CDT documented in this encounter Functional Status [...] No 06/18/2022 documented as of this encounter Discharge Summaries * Baltazar Wyatt MD - 03/29/2024 2:07 PM CDT [facility] INTERNAL MEDICINE DISCHARGE SUMMARY PATIENT: Lukas Diaz 38 year old male : 1985 ADMISSION INFORMATION ADMISSION DISCHARGE Date: 03/28/2024 Date: 03/29/2024 Admitting Physician No admitting provider for patient encounter. Discharge Physician: AMMON AGUIRRE MD Present on Admission: Shortness of breath Leukocytosis, unspecified type RUQ pain Alcoholic cirrhosis of liver without ascites (HCC) Gastrointestinal hemorrhage with melena Discharge Diagnoses:Same as aobve Admission Condition: fair Discharged Condition: fair Consults: None HOSPITAL COURSE Hospital Course: Mr Diaz is a 38-year-old male with history of alcohol-related cirrhosis, hypertension, anxiety disorder, depression, insomnia, left hip fracture, alcohol abuse here for concerns of anxiety right-sided abdominal pain, left hip pain. Patient also with concern of upper GIB as patient has been having melenic stools. Patient states that his RUQ pain started 2 days ago with sharp epigastric pain/RUQradiating to the back intermittently. Patient denies any ETOH use for at least 6 months along with any IVDU. He endorses chills but no fevers. Patient also states that he has been having intermittently black stools, some loose some solid for 1 day. Patient is HDS, labs notable for WBC 13.6k. Patient s/p CTAP, negative for acute process. Patient admitted to [facility] for further management. Following morning pain improved workup negative and stable to discharge back to alf. Communication provided for dentist to remove teeth and proceed with hip replacement with orthopedics outpatient. Significant Diagnostic Studies: Labs this admission: CBC: Recent Labs Lab 03/29/2442903/28/24191208/12/2361702/22/2344902/16/22 1426 WBC 8.7 13.6* 9.2 1 9.7 HGB 15.3 15.7 14.9 1 14.6 HCT 43.4 43.9 44.6 1 43.5 MCV 90.2 89.2 -- -- 94.4 PLTCOUNT 178 175 -- -- 184 1 = values in this interval not displayed. BMP: Recent Labs Lab 03/29/2442903/28/24191208/12/2361702/22/2344902/16/22 1426 NA 135* 134* -- -- 139 POTASSIUM 3.8 3.8 4.3 1 3.7 CL 105 101 -- -- 98 BUN 10 16 12 1 9 CREATININE 0.84 0.88 -- -- 0.76 CALCIUM 9.6 9.7 9.0 1 10.4* 1 = values in this interval not displayed. CMP: Recent Labs Lab 03/29/2442903/28/24191208/12/2361702/22/2344902/16/22 1426 AST 17 14 15 1 24 ALT 20 18 20 1 20 TBILI 0.9 0.5 -- -- 0.5 ALKPHOS 81 82 70 1 130 ALB 3.8 3.9 4.0 1 4.0 PROT 7.6 7.7 -- -- 8.9* 1 = values in this interval not displayed. Coagulation: Recent Labs Lab Units 03/28/241912 PT Seconds 13.8 INR 1.1 Imaging: CT ABDOMEN PELVIS W CONTRAST Result Date: 03/29/2024 Impression: 1.Subpleural airspace opacities within the bilateral lung bases, right greater than left, may represent pneumonia. 2.No acute process in the abdomen or pelvis. 3.Hepatic cirrhosis with recanalized umbilical vein and paraesophageal varices. 4.Redemonstrated chronic left femoral neck fracture with interval increase in superior displacement of the femur and osteolysis of the femoral head. > Dictated by Chad Francisco, DO (chairman president and chief executive officer). I, Ramiro Naranjo MD have personally reviewed and interpreted this examination/study. > Interpreting Provider: Ramiro Naranjo MD on 42:30 AM Discharge Exam: Vitals: BP 114/88 Pulse 78 Temp 98.4 ??F (36.9 ??C) Resp 18 Ht 1.651 m (5' 5 ) Wt 90.7 kg (200 lb) SpO2 92% Gen: Alert, cooperative, no distress Head: Normocephalic, without obvious abnormality, atraumatic Eyes: Conjunctivae/corneas clear, EOMI Nose: Mucosa normal. No drainage. Throat: Moist mucous membranes Neck: No JVD, no carotid bruit, trachea midline Back: Symmetric, no curvature Resp: CTAB, no wheezes/crackles CV: RRR, S1S2, No M/R/G Abd: S/NT/ND, BS+, no bruits Ext: No clubbing, cyanosis, edema; no skin changes consistent with venous stasis or arterial disease Pulses: 2+ DP B Skin: Skin color, texture, turgor normal. No rashes or lesions Neuro: No focal deficits DISCHARGE PLANNING Disposition: residential Patient Instructions: Medication List START taking these medications lidocaine 5 % patch Commonly known as: Lidoderm Apply 1 (one) patch to skin once daily Apply patch to most painful area and remove after 12 hours. May reapply a new patch 12 hours later. simethicone 80 MG chew tablet Commonly known as: Mylicon Take 1 (one) tablet by mouth 3 times daily, after meals CONTINUE taking these medications acetaminophen 500 MG tablet Commonly known as: Tylenol Acidophilus/Pectin capsule baclofen 10 MG tablet Commonly known as: Lioresal buPROPion 75 MG tablet Commonly known as: Wellbutrin busPIRone 5 MG tablet Commonly known as: Buspar Rober-Gest Antacid 500 MG chew tablet Generic drug: calcium carbonate diazePAM 2 MG tablet Commonly known as: Valium diclofenac sodium 1 % gel Commonly known as: Voltaren Enulose 10 GM/15ML solution Generic drug: lactulose ferrous sulfate 325 (65 FE) MG tablet folic acid 1 MG tablet Commonly known as: Folvite furosemide 40 MG tablet Commonly known as: Lasix gabapentin 400 MG capsule Commonly known as: Neurontin HYDROcodone-acetaminophen 5-325 MG tablet Commonly known as: [place] hydrOXYzine HCl 25 MG tablet Commonly known as: Atarax melatonin 3 MG tablet ondansetron 4 MG tablet Commonly known as: Zofran potassium chloride ER 20 MEQ tablet Commonly known as: Klor-Con M propranolol 10 MG tablet Commonly known as: Inderal QUEtiapine 25 MG tablet Commonly known as: SEROquel rifAXIMin 550 MG tablet Commonly known as: Xifaxan Take 1 (one) tablet by mouth 2 times daily spironolactone 100 MG tablet Commonly known as: Aldactone sucralfate 1 GM/10ML suspension Commonly known as: Carafate thiamine 100 MG tablet Commonly known as: Vitamin B-1 traZODone 50 MG tablet Commonly known as: Desyrel vitamin D3 125 MCG (5000 UT) capsule Commonly known as: Cholecalciferol Where to Get Your Medications These medications were sent to [facility] Rx - [address] [place] [address] [address] [facility] [place] [address] lidocaine 5 % patch You can get these medications from any pharmacy You don't need a prescription for these medications simethicone 80 MG chew tablet Discharge Instructions DISCHARGE INSTRUCTIONS? A MESSAGE FROM YOUR DOCTORS:?? Dear Lukas Diaz,? You were admitted for abdominal pain, workup was largely unremarkable including imaging and blood work. 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 DISCHARGE MEDICATIONS:? Medication List START taking these medications lidocaine 5 % patch Commonly known as: Lidoderm Apply 1 (one) patch to skin once daily Apply patch to most painful area and remove after 12 hours. May reapply a new patch 12 hours later. simethicone 80 MG chew tablet Commonly known as: Mylicon Take 1 (one) tablet by mouth 3 times daily, after meals CONTINUE taking these medications acetaminophen 500 MG tablet Commonly known as: Tylenol Acidophilus/Pectin capsule baclofen 10 MG tablet Commonly known as: Lioresal buPROPion 75 MG tablet Commonly known as: Wellbutrin busPIRone 5 MG tablet Commonly known as: Buspar Rober-Gest Antacid 500 MG chew tablet Generic drug: calcium carbonate diazePAM 2 MG tablet Commonly known as: Valium diclofenac sodium 1 % gel Commonly known as: Voltaren Enulose 10 GM/15ML solution Generic drug: lactulose ferrous sulfate 325 (65 FE) MG tablet folic acid 1 MG tablet Commonly known as: Folvite furosemide 40 MG tablet Commonly known as: Lasix gabapentin 400 MG capsule Commonly known as: Neurontin HYDROcodone-acetaminophen 5-325 MG tablet Commonly known as: [place] hydrOXYzine HCl 25 MG tablet Commonly known as: Atarax melatonin 3 MG tablet ondansetron 4 MG tablet Commonly known as: Zofran potassium chloride ER 20 MEQ tablet Commonly known as: Klor-Con M propranolol 10 MG tablet Commonly known as: Inderal QUEtiapine 25 MG tablet Commonly known as: SEROquel rifAXIMin 550 MG tablet Commonly known as: Xifaxan Take 1 (one) tablet by mouth 2 times daily spironolactone 100 MG tablet Commonly known as: Aldactone sucralfate 1 GM/10ML suspension Commonly known as: Carafate thiamine 100 MG tablet Commonly known as: Vitamin B-1 traZODone 50 MG tablet Commonly known as: Desyrel vitamin D3 125 MCG (5000 UT) capsule Commonly known as: Cholecalciferol Where to Get Your Medications These medications were sent to [facility] Rx - [address] [place] [address] [address] [place] [address] lidocaine 5 % patch You can get these medications from any pharmacy You don't need a prescription for these medications simethicone 80 MG chew tablet Other than the changes stated above, continue all other home medications as prescribed.? Please discuss these changes with your Primary Care Physician (or your specialist doctor).?? If you have any questions about your medications, please ask the pharmacy when you crop picker your prescription. You may also call your primary provider if you still have questions.? ? 2. FOLLOW-UP:? A) Below are your scheduled appointments? Future Appointments Friday May 17, 2024 11:00 AM (Arrive by 10:45 AM) Appointment with Toño Cabrera at [facility] - Orthopedic Surgery ([phone]) [address] [address] Sunday May 19, 2024 8:00 AM Appointment with [facility] 2 at [facility] ([phone]) [address] [facility] [address] Sunday May 19, 2024 9:00 AM Appointment with Amos Pabon at [facility] - GI ([phone]) [address] [facility] [facility] [address] ? -If you are not going home but to Rehab or Detention, ask the providers there about going to future appointments.?? ? B) It is essential that you keep all your follow-up appointments and go to your doctors??? appointments as scheduled. If a follow-up with your primary care provider has not been scheduled, you need to schedule an appointment to follow- up on your hospitalization within 1-2 weeks. If there is a conflict, please call the clinic ahead of time and reschedule the appointment.? ? 3.? Wound Care instructions IF APPLICABLE? - na ? 4. ?Lifestyle Modifications? -It is very important for your health to AVOID/STOP smoking cigarettes. Please talk to your primarycare physician if you need help quitting smoking.? -Please include plenty of fruits and vegetables in your diet and maintain a healthy diet.? -Discuss an exercise program with your primary care physician. It is recommended that most individuals should exercise for 20 minutes at least 5 times per week.? Please call your Primary Care Provider, report to the nearest emergency room or call 911 if you develop new or concerning symptoms, including, but not limited to, fever, chest pain, palpitations, numbness, worsening confusion, weakness in arms/legs, dizziness, or worsening shortness of breath.? Thank you for allowing us to participate in your care!? ? Internal Medicine Team? [facility] [address] [facility]? [place] [address]? Signed: Baltazar Wyatt MD Internal Medicine Resident [facility] 03/29/2024 2:07 PM Associated attestation - Ammon Aguirre MD - 03/31/2024 4:08 PM CDT Discharge process took more than 30 minutes to complete by the team, including myself. documented in this encounter Discharge Instructions * Discharge Instructions* Jolanta Obrien MD - 03/29/2024 2:06 PM CDT DISCHARGE INSTRUCTIONS? A MESSAGE FROM YOUR DOCTORS:?? Dear Lukas Diaz,? You were admitted for abdominal pain, workup was largely unremarkable including imaging and blood work. 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 DISCHARGE MEDICATIONS:? Medication List START taking these medications lidocaine 5 % patch Commonly known as: Lidoderm Apply 1 (one) patch to skin once daily Apply patch to most painful area and remove after 12 hours. May reapply a new patch 12 hours later. simethicone 80 MG chew tablet Commonly known as: Mylicon Take 1 (one) tablet by mouth 3 times daily, after meals CONTINUE taking these medications acetaminophen 500 MG tablet Commonly known as: Tylenol Acidophilus/Pectin capsule baclofen 10 MG tablet Commonly known as: Lioresal buPROPion 75 MG tablet Commonly known as: Wellbutrin busPIRone 5 MG tablet Commonly known as: Buspar Rober-Gest Antacid 500 MG chew tablet Generic drug: calcium carbonate diazePAM 2 MG tablet Commonly known as: Valium diclofenac sodium 1 % gel Commonly known as: Voltaren Enulose 10 GM/15ML solution Generic drug: lactulose ferrous sulfate 325 (65 FE) MG tablet folic acid 1 MG tablet Commonly known as: Folvite furosemide 40 MG tablet Commonly known as: Lasix gabapentin 400 MG capsule Commonly known as: Neurontin HYDROcodone-acetaminophen 5-325 MG tablet Commonly known as: [place] hydrOXYzine HCl 25 MG tablet Commonly known as: Atarax melatonin 3 MG tablet ondansetron 4 MG tablet Commonly known as: Zofran potassium chloride ER 20 MEQ tablet Commonly known as: Klor-Con M propranolol 10 MG tablet Commonly known as: Inderal QUEtiapine 25 MG tablet Commonly known as: SEROquel rifAXIMin 550 MG tablet Commonly known as: Xifaxan Take 1 (one) tablet by mouth 2 times daily spironolactone 100 MG tablet Commonly known as: Aldactone sucralfate 1 GM/10ML suspension Commonly known as: Carafate thiamine 100 MG tablet Commonly known as: Vitamin B-1 traZODone 50 MG tablet Commonly known as: Desyrel vitamin D3 125 MCG (5000 UT) capsule Commonly known as: Cholecalciferol Where to Get Your Medications These medications were sent to [facility] - [address] [place] [address] [place] [place] [address] [address] lidocaine 5 % patch You can get these medications from any pharmacy You don't need a prescription for these medications simethicone 80 MG chew tablet Other than the changes stated above, continue all other home medications as prescribed.? Please discuss these changes with your Primary Care Physician (or your specialist doctor).?? If you have any questions about your medications, please ask the pharmacy when you crop picker your prescription. You may also call your primary provider if you still have questions.? ? 2. FOLLOW-UP:? A) Below are your scheduled appointments? Future Appointments Friday May 17, 2024 11:00 AM (Arrive by 10:45 AM) Appointment with Toño Cabrera at [facility] - Orthopedic Surgery ([phone]) [address] [address] Sunday May 19, 2024 8:00 AM Appointment with [facility] 2 at [facility] ([phone]) [address] [facility] [address] Sunday May 19, 2024 9:00 AM Appointment with Amos Pabon at [facility] - GI ([phone]) [address] [facility] [facility] [address] ? -If you are not going home but to Rehab or Detention, ask the providers there about going to future appointments.?? ? B) It is essential that you keep all your follow-up appointments and go to your doctors??? appointments as scheduled. If a follow-up with your primary care provider has not been scheduled, you need to schedule an appointment to follow- up on your hospitalization within 1-2 weeks. If there is a conflict, please call the clinic ahead of time and reschedule the appointment.? ? 3.? Wound Care instructions IF APPLICABLE? - na ? 4. ?Lifestyle Modifications? -It is very important for your health to AVOID/STOP smoking cigarettes. Please talk to your primarycare physician if you need help quitting smoking.? -Please include plenty of fruits and vegetables in your diet and maintain a healthy diet.? -Discuss an exercise program with your primary care physician. It is recommended that most individuals should exercise for 20 minutes at least 5 times per week.? Please call your Primary Care Provider, report to the nearest emergency room or call 911 if you develop new or concerning symptoms, including, but not limited to, fever, chest pain, palpitations, numbness, worsening confusion, weakness in arms/legs, dizziness, or worsening shortness of breath.? Thank you for allowing us to participate in your care!? ? Internal Medicine Team? [facility] [address] [facility]? [place] [address]? documented in this encounter Medications at Time of Discharge [...] mouth 3 times daily 05/28/2023 HYDROcodone-acetaminoph en ([place]) 5-325 MG tablet Take 1 (one) tablet [...] patch 12 hours later. 5 patch 03/29/2024 melatonin 3 MG tablet Take 2 (two) tablets by mouth nightly as needed ondansetron (Zofran) 4 MG tablet Take 1 (one) tablet by mouth every 8 hours as needed potassium chloride ER (Klor-Con M) 20 MEQ tablet Take 1 (one) tablet by mouth once daily 08/24/2022 propranolol (INDERAL) 10 MG tablet Take 1 [...] 02/25/2024 06/01/2024 documented as of this encounter Progress Notes * Jing Daniel, OT - 03/29/2024 2:[address] [facility] Physical Medicine and Rehabilitation Occupational Therapy Initial Evaluation Note Patient: Lukas Diaz [facility] Record Number: [id number] Date of : 1985 Age: [age] year old Co-Eval with PT 2/2 anticipated level of skilled assist PPE worn by staff: gloves PPE worn by patient: gown - patient, clean;socks - clean Recommendations: Discharge OT Discharge Recommendations: Patient at baseline per therapy evaluation and has no further skilledtherapy needs while in hospital In addition to the 1:1 evaluation of the patient, additional eval time was spent completing the chart review prior to the assessment, completing the multidisciplinary plan of care and education plan post evaluation and communicating results of the eval to other treatment team members. Nurse and Physical Therapist contacted regarding patient status and/or discharge plan. Physician Orders: Evaluation and Treat Activity Level: AAT DIAGNOSIS: Patient Active Problem List: Hepatic cirrhosis (HCC) Chronic left hip pain Tachycardia Closed fracture of left hip (HCC) Elevated liver enzymes Vitamin D deficiency Nicotine abuse Shortness of breath Leukocytosis, unspecified type RUQ pain Alcoholic cirrhosis of liver without ascites (HCC) Gastrointestinal hemorrhage with melena Past Medical History: Diagnosis Date Anxiety disorder Depression Fracture neck of left femur Hypertension Insomnia SUBJECTIVE: Subjective: I just want to get back to the alf to keep rehabbing PATIENT GOALS: Patient's Primary Concern: Return to facility Home Situation: Type of Residence: Detention Equipment at Home: Wheelchair-Standard;Walker-2 Wheeled Prior Level of Functioning: Mobility: (Uses w/c for majority of the day. Ambulates only with PT) Fallen Within 6 Mos: 3 Have Help at Home?: Yes, there is help at home now Who assists you at home?: Staff Who manages medications?: Staff Pain Assessment: Pain Location #1 Pain Scale/Observation: Numeric (0-10) Pain Rating Score #1: 9 Pain Location : Abdomen;Hip Pain Orientation: Left Pain Intervention(s): (RN aware) OBJECTIVE: At start of therapy session, patient found in bed and with no alarm General Appearance: 38 y.o. M found semi-reclined in bed in NAD LDA: IV's: Peripheral line Edema: No edema noted Vitals: Rest BP: 125/81 HR: 84 Sp02 94% Room Air Observations: No s/s or c/o SOB, dizziness, or light-headedness during mobility and tx. Mental Status/Cognition: Level of Consciousness-Adult: Alert Cognition: Follows Commands-Consistent;Processing-Appropriate Attention Span: Appears intact Memory: Appears intact Following Commands: Follows all commands and directions without difficulty Safety Judgement: Good awareness of safety precautions Awareness of Errors: Good awareness of errors made Problem Solving: Able to problem solve independently UE ROM: RUE: AROM WFL LUE: AROM WFL Strength: RUE: WFL LUE: WFL UE Tone RUE: no abnormal tone noted LUE: no abnormal tone noted Coordination: intact serial opposition for bilateral hands UE Sensation RUE: no complaints of numbness or tingling LUE: no complaints of numbness or tingling Perception: Inattention/Neglect: Appears intact Initiation: Appears intact Motor Planning: Appears intact Mobility: A gait belt and non-slip socks were used for all out of bed activity this date. Bed Mobility: Supine to Sit: Complete [place] with HOB in semi-fowlers position Sit to Supine: Complete [place] Transfers: Sit to Stand: Stand By Assist Stand to Sit: Stand By Assist Chair to Bed: Stand By Assist Bed to Chair: Stand By Assist Type of Transfer: Stand Pivot Transfer (Bed to/from chair) Transfer Device: Gait belt Functional Ambulation: Patient ambulated to/from bathroom with stand by assist using w/w. Balance: Sitting - Static: Good Sitting - Dynamic: Good Standing - Static: Good - Standing - Dynamic: Fair + Activities of Daily Living Feeding: Set-up to drink from cup while seated in bed Oral Facial Hygiene: Set-up to complete light facial hygiene while seated EOB Bathing: Activity Does Not Occur Upper Body Dressing: Activity Does Not Occur Lower Body Dressing: Stand By Assist to don socks while semi-reclined in bed Toileting: Activity Does Not Occur ACTIVITY TOLERANCE: Patient's activity tolerance: fair. TREATMENT / EDUCATION / INTERVENTIONS: While performing OT, Patient was instructed in:functional mobility training, self-care training, safety awareness/fall precautions , discharge planning, use of call light Presented to patient who demonstrates Good understanding of instructions given. INFORMED CONSENT TO TREATMENT: Plan of care including recommended therapy, goals and frequency, discussed with patient who understands and agrees to proceed. ASSESSMENT: Patient demonstrated independence/ baseline with activities of daily living. No continued IP Occupational Therapy indicated at this time. Group Home Goal(s): Patient to be baseline with functional mobility and self-care and should discharge to prior level of care. Plan: Goals achieved. DC patient from skilled therapy services at this time. If patient is discharged from the facility, this note serves as a discharge summary if further occupational therapy visits did not occur. Refer to filed flowsheet for further details. Following therapy session, patient left in bed, with call light within reach, with yAaz FUENTES aware,with therapy cues visible on white board. Educated on use of call light for patient safety, patientverbalized understanding and was in agreement. All lines, monitors, IV's, equipment in place and intact pre and post visit. Patient was in no discomfort and had no additional needs at conclusion of OT session. * Marleny Vasquez, PT - 03/29/2024 2:[address] [facility] Physical Medicine and Rehabilitation Physical Therapy Initial Evaluation Note Patient: Lukas Diaz Med Record Number: [id number] Date of : 1985 Age: [age] year old PPE worn by staff: gloves;mask - procedural PPE worn by patient: gown - patient, clean;socks - clean Co-eval with OT Recommendations: Discharge PT Discharge Recommendations: Patient at baseline per therapy evaluation and has no further skilledtherapy needs while in hospital In addition to the 1:1 evaluation of the patient, additional eval time was spent completing the chart review prior to the assessment, completing the multidisciplinary plan of care and education plan post evaluation and communicating results of the eval to other treatment team members Nurse contacted regarding patient status and/or discharge plan. Physician Orders: Evaluation and Treat PRECAUTIONS: Weight Bearing Status: (No restrictions) Activity Level: Activity as Tolerated DIAGNOSIS: Patient Active Problem List: Hepatic cirrhosis (HCC) Chronic left hip pain Tachycardia Closed fracture of left hip (HCC) Elevated liver enzymes Vitamin D deficiency Nicotine abuse Shortness of breath Leukocytosis, unspecified type RUQ pain Alcoholic cirrhosis of liver without ascites (HCC) Gastrointestinal hemorrhage with melena Past Medical History: Diagnosis Date Anxiety disorder Depression Fracture neck of left femur Hypertension Insomnia SUBJECTIVE: Subjective: I can try it PATIENT GOALS: Patient's Primary Concern: Return to [place] Home Situation: Type of Residence: Detention Equipment at Home: Wheelchair-Standard;Walker-2 Wheeled Prior Level of Functioning: Prior Level of Function Mobility: (Uses w/c for majority of the day. Ambulates only with PT) Fallen Within 6 Mos: 3 Have Help at Home?: Yes, there is help at home now Who assists you at home?: Staff Pain Assessment: Pain Location #1 Pain Scale/Observation: Numeric (0-10) Pain Rating Score #1: 9 Pain Location : Abdomen;Hip Pain Orientation: Left Pain Intervention(s): (RN aware) OBJECTIVE: At start of therapy session, patient found in bed and with no alarm. General Appearance: 38 year old male laying in the bed, NAD LDAs: IV's: Peripheral line Edema: no edema noted in bilateral lower extremities Vitals: (*Assess the 3 levels of oxygen saturations both for room air and 02 unless rest on room air is 88% or less). Rest BP: 125/81 HR: 84 Sp02 94% Room Air Observations: No signs of distress or patient c/o shortness of breath/dizziness during treatment. Mental Status/Cognition: Level of Consciousness-Adult: Alert Cognition: Follows Commands-Consistent Attention Span: Appears intact Following Commands: Follows all commands and directions without difficulty Safety Judgement: Good awareness of safety precautions ROM: RLE: AROM WFL LLE: AROM WFL Strength: RLE:WFL LLE: WFL except hip flexion 3+/5 Sensation: RLE: no complaints of numbness or tingling LLE: no complaints of numbness or tingling Mobility: A gait belt and non-slip socks were used for all out of bed activity this date. Bed Mobility: Supine to Sit: Complete [place] with HOB in semi-fowlers position Sit to Supine: Complete [place] Transfers: Sit to Stand: Stand By Assist Stand to Sit: Stand By Assist Chair to Bed: Stand By Assist Bed to Chair: Stand By Assist Type of Transfer: Stand Pivot Transfer (Bed to/from chair) Gait: Weight Bearing Status: (No restrictions) Distance Ambulated (ft): 40 FEET Ambulation: Assistive Device: Gait Belt;Walker-2 Wheeled Ambulation: Level of Assistance: Stand By Assist Ambulation: Gait Deviations: Yuli - Decreased (Decreased left heel strike due to length length discrepancy) Balance: Balance Scales/Tests Used: Sitting: Static/Dynamic;Standing: Static/Dynamic Sitting - Static: Good Sitting - Dynamic: Good Standing - Static: Fair +;With Both Upper Extremity's Support Standing - Dynamic: Fair;With Both Upper Extremity's Support ACTIVITY TOLERANCE: Patient's activity tolerance: fair TREATMENT/INTERVENTIONS: evaluation AM-PAC 6 Clicks Mobility Raw Score:: 18 EDUCATION: While performing PT, Patient was instructed in:functional mobility training, safety awareness/fall precautions , discharge planning, use of call light Presented to patient who demonstrates Good understanding of instructions given. INFORMED CONSENT TO TREATMENT: Plan of care including recommended therapy, goals and frequency, discussed with patient who understands and agrees to proceed. ASSESSMENT: Patient demonstrates baseline functioning with mobility. No continued Physical Therapy indicated atthis time Short Term Goals: Goal Formation With patient- all met 6/5 Patient will perform bed mobility independently Patient will transfer sit to/from stand with stand by assist Group Home Goal(s): Patient to be baseline with functional mobility and self-care and should discharge to prior level of care.- met 6/5 Equipment Issued: gait belt Plan: Discontinue IP PT If patient is discharged from the facility, this note serves as a discharge summary if further physical therapy visits did not occur. Refer to filed flowsheet for further details. Following therapy session, patient left in bed, with call light within reach, with RNAyaz aware,with therapy cues visible on white board. documented in this encounter H&P Notes * Kristen Dong LCSW - 03/29/2024 2:54 PM CDT Facility Transfer Note Level of Care: Rehab Care Payor Source: Medicare Facility Name: [facility]: RN Call Report to:[phone] Transportation (company and number): [employer]: [phone] Certificate of Medical Necessity rationale: 03/29/2024 2:57 PM Patient discharged to SNF under Medicare SNF 3-day waiver? No Comments:EMS ETA 2100 Name/Phone number: Kristen Dong LCSW * Shira Lainez MD - 03/29/2024 12:16 AM CDT [facility] Gastroenterology Hepatology History & Physical 03/29/2024 at 12:16 AM Patient Name: Lukas Diaz (38 year old) Room Number: C07/C07 Chief Complaint Patient presents with Pain Abdominal Pt arrives via EMS due to RUQ pain. Pt is a resident of [facility] in [facility]. Pt states 2 days ago he was seen an [facility], but shay could not provide care. The pt states he then called his liver specialist who suggested he come to the ED. Pt states that he also has a L hip fracture, pt states the fracture was old, then he states it reoccurred and will be seen for that . The pt states n/v normal BM this am. HPI: Mr Diaz is a 38-year-old male with history of alcohol-related cirrhosis, hypertension, anxiety disorder, depression, insomnia, left hip fracture, alcohol abuse here for concerns of anxiety right-sided abdominal pain, left hip pain. Patient also with concern of upper GIB as patient has been having melenic stools. Patient states that his RUQ pain started 2 days ago with sharp epigastric pain/RUQradiating to the back intermittently. Patient denies any ETOH use for at least 6 months along with any IVDU. He endorses chills but no fevers. Patient also states that he has been having intermittently black stools, some loose some solid for 1 day. Patient is HDS, labs notable for WBC 13.6k. Patient s/p CTAP, pending final read. Patient admitted to [facility] service for further management, plan for possible EGD tomorrow AM. Review of Systems: Negatives in italics, positives in bold General: Weight change, appetite change, fatigue, weakness, fever, chills, night sweats HEENT: Rashes, itching, headache, acute visual changes, hearing loss, tinnitus, rhinorrhea, hoarseness, sore throat Cardiac: Chest pain, palpitations, BARAJAS, dyspnea at rest, orthopnea, edema Respiratory: Cough, SOB, wheezing, pleuritic chest pain, sputum, hemoptysis Gastrointestinal: Abdominal pain, nausea, vomiting, diarrhea, constipation, melena, hematochezia, hematemesis Genitourinary: Dysuria, hematuria, hesitancy, frequency, incomplete voiding Musculoskeletal: Muscle weakness, joint pain or stiffness, limited range of motion Neurologic: Numbness or tingling in extremities, dizziness, lightheadedness Hematologic: Easy bruising/bleeding Endocrine: Thyroid disease, diabetes, polyuria, polydipsia, heat/cold intolerance Psychiatric: Recent depression, anxiety Past Medical and Surgical History Past Medical History: Diagnosis Date Anxiety disorder Depression Fracture neck of left femur Hypertension Insomnia Past Surgical History: Procedure Laterality Date ENDOSCOPY, UPPER N/A 03/05/2022 N/A; EGD ENDOSCOPY, UPPER N/A 06/18/2022 N/A; EGD Family History No family history on file. Social History -Lives with -Works as -Smoking: -Alcohol: -Drugs: Social History Socioeconomic History Marital status: Single Spouse name: Not on file Number of children: Not on file Years of education: Not on file Highest education level: Not on file Occupational History Not on file Tobacco Use Smoking status: Every Day Packs/day: 0.25 Years: 10.00 Additional pack years: 0.00 Total pack years: 2.50 Types: Cigarettes Last attempt to quit: 05/2023 Years since quittin.8 Smokeless tobacco: Never Vaping Use Vaping Use: Never used Substance and Sexual Activity Alcohol use: Not Currently Comment: occasional- last drink was Friday 12/15 Drug use: Not Currently Types: Marijuana Sexual activity: Not on file Other Topics Concern Not on file Social History Narrative Not on file Social Determinants of Health Financial Resource Strain: Not on file Food Insecurity: No Food Insecurity (12/18/2021) Hunger Vital Sign Worried About Running Out of Food in the Last Year: Never true Ran Out of Food in the Last Year: Never true Transportation Needs: Not on file Stress: Not on file Housing Stability: Not on file Allergies Allergies Allergen Reactions Peanut-Derived Anaphylaxis Mushroom Extract Complex Other Chest tightness Shellfish Allergy Other Chest tightness Home Medications (Not in a hospital admission) Objective: Vitals Temp: [98.4 ??F (36.9 ??C)] 98.4 ??F (36.9 ??C) Pulse: [104] 104 Resp: [16] 16 BP: (132)/(92) 132/92 I/Os No intake or output data in the 24 hours ending 03/29/24 0016 Physical Exam General - NAD, afebrile, non-cachectic HEENT - NC/AT Neck - Supple, no lymphadenopathy, no JVD Chest - non labored breathing on RA CV - RRR Abdomen - Soft, no tenderness, no distention Musculoskeletal - Moves all four extremities Extremities - No clubbing, no cyanosis, no edema Skin - No rashes, lesions or jaundice Neurologic - A&O x3, no asterixis Psych - Appropriate mood and affect Data Review Recent Labs Component Name 03/28/24191208/12/2361702/22/230 02/16/22 14201/05/22 0000 12/25/21 0000 12/19/21 0153 WBC 13.6* 9.2 10.4 9.7 7.1 - 7.5 HGB 15.7 14.9 16.0 14.6 14.0 - 13.0 HCT 43.9 44.6 47.9 43.5 41.6 - 39.1 PLT - 179 144* - 250 - - MCV 89.2 - - 94.4 - - 92.4 - = values in this interval not displayed. Recent Labs Component Name 03/28/24191208/12/2361702/22/23449 CALCIUM 9.7 9.0 8.9 Recent Labs Component Name 03/28/24191208/12/2361702/22/230 02/16/22 1426 12/25/21 0000 12/19/21 0135 NA 134* - - 139 - 134* CL 101 - - 98 - 100 CO2 24 29 29 31* - 23 BUN 16 12 11 9 - 9 CREATININE 0.88 - - 0.76 - 0.56* - = values in this interval not displayed. Recent Labs Component Name 03/28/24191208/12/2361702/22/2344902/16/22 1426 12/25/21 0000 12/19/21 0135 11/14/21 0000 10/01/21 1138 PROT 7.7 - - 8.9* - 7.6 - 8.6* ALB 3.9 4.0 4.1 4.0 - 2.7* - 3.3* ALKPHOS 82 70 86 130 - 180* - 134 AST 14 15 22 24 - 91* - 34 ALT 18 20 21 20 - 67* - 24 TBILI 0.5 - - 0.5 - 1.0 - 0.6 DBILI - - - 0.3 - - - 0.2 - = values in this interval not displayed. Recent Labs Component Name 03/28/24191202/22/2344902/16/22 1426 PT 13.8 11.4 13.5 INR 1.1 1.0 1.0 No results for input(s): CKTOTAL , CKMBCK2 , TROPONINI in the last 11143 hours. UA:n/a ECG: Normal rate and rhythm . Normal axis and intervals. No ST-T changes Microbiology: none Imaging: Pending CTAP read Assessment and Plan: Patient Active Problem List: Hepatic cirrhosis (HCC) Chronic left hip pain Tachycardia Closed fracture of left hip (HCC) Elevated liver enzymes Vitamin D deficiency Nicotine abuse Shortness of breath Leukocytosis, unspecified type RUQ pain Alcoholic cirrhosis of liver without ascites (HCC) Gastrointestinal hemorrhage with melena #GIB Reported melenic stools Hx of EV PLAN: -IV PPI BID -NPO at midnight for possible upper scope tomorrow AM -holding AC -monitoring CBC's -large bore PIV x2 -monitor CBC's q8h #RUQ/epigastric pain Ddx: gastritis, PUD, pancreatitis, hepatitis, SBP Intermittent 2d worsening pain No inciting factors, foods, NSAID's PLAN: -f/u final read CTAP -add on lipase -blood cultures, UA -consider hepatitis panel, no hx IVDU # Liver cirrhosis - Etiology: ETOH - Decompensated when HE, EV, ascites or infection - 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 - MELD score today MELD 3.0: 9 at 03/28/2024 7:13 PM MELD-Na: 7 at 03/28/2024 7:13 PM Calculated from: Serum Creatinine: 0.88 mg/dL (Using min of 1 mg/dL) at 03/28/2024 7:13 PM Serum Sodium: 134 mmol/L at 03/28/2024 7:13 PM Total Bilirubin: 0.5 mg/dL (Using min of 1 mg/dL) at 03/28/2024 7:13 PM Serum Albumin: 3.9 g/dL (Using max of 3.5 g/dL) at 03/28/2024 7:13 PM INR(ratio): 1.1 at 03/28/2024 7:13 PM Age at listing (hypothetical): 38 years Sex: Male at 03/28/2024 7:13 PM - HE: reported hallucinations but improving, on lactulose / rifaximin, currently AAOx3 - EV: on propanolol; varices s/p band ligation - Ascites: per hepatology note, improved with diuretics lasix 40, aldactone 100 mg, does not get routine paracentesis - SBP : on cipro ppx at home, no ascites to tap - Coagulopathy: monitor INR - HCC screening: US abdomen 09/2023 Hepatic steatosis and cirrhosis - HypoNa none - Transplant: follow with Dr Pabon, listed #Depression: buspar, wellbutrin, seroquel #AUD: thiamine, folate #hx of left hip fracture: stable Lines: PIV Prophylaxis: GI - PPI IV BID DVT - mechanical ppx FEN: DIET NPO Except: SIPS WITH MEDS Activity: Ad wilfredo Disposition: PT/OT Code Status: Full Code This patient will be discussed with the Attending Dr. Margret Lainez MD Associated attestation - Ammon Aguirre MD - 04/10/2024 4:20 PM CDT GI & Hepatology Attending Note I have personally seen and examined this patient with the trainee on 03/29/2024. AMMON AGUIRRE MD 04/10/2024 4:20 PM documented in this encounter ED Notes * Ayaz Thomas RN - 03/29/2024 5:22 PM CDT RN gave report on this pt to [facility]. * Mikey Cruz RN - 03/29/2024 1:56 AM CDT Bed: [facility] Expected date: Expected time: Means of arrival: Comments: C1 * Vamsi Sellers MD - 03/28/2024 11:09 PM CDT [facility] Emergency Department Emergency Medicine Resident Note Chief Complaint Patient presents with Pain Abdominal Pt arrives via EMS due to RUQ pain. Pt is a resident of [facility] in [facility]. Pt states 2 days ago he was seen an [facility], but hey could not provide care. The pt states he then called his liver specialist who suggested he come to the ED. Pt states that he also has a L hip fracture, pt states the fracture was old, then he states it reoccurred and will be seen for that . The pt states n/v normal BM this am. HISTORY History obtained from: patient Lukas Diaz is a 38 year old male with h/o cirrhosis, anxiety disorder, recent left hip fracture who presents with c/o right upper quadrant abdominal pain. The pain has been going on for 2 daysand wraps around his to his right side and back. Pain has been worse with inspiration. He reports associated nausea with vomiting with reported dark streaks as well as intermittent melena over the last 2 days. While in the waiting room he became very anxious due to a number of people and developed auditory and visual hallucinations. Currently denies hallucinations, SI/HI. States he has not had his Ativan today. He denies chest pain, shortness of breath, fever, chills. Past Medical History: Diagnosis Date Anxiety disorder Depression Fracture neck of left femur Hypertension Insomnia Past Surgical History: Procedure Laterality Date ENDOSCOPY, UPPER N/A 03/05/2022 N/A; EGD ENDOSCOPY, UPPER N/A 06/18/2022 N/A; EGD No family history on file. Social History Socioeconomic History Marital status: Single Spouse name: Not on file Number of children: Not on file Years of education: Not on file Highest education level: Not on file Occupational History Not on file Tobacco Use Smoking status: Every Day Packs/day: 0.25 Years: 10.00 Additional pack years: 0.00 Total pack years: 2.50 Types: Cigarettes Last attempt to quit: 05/2023 Years since quittin.8 Smokeless tobacco: Never Vaping Use Vaping Use: Never used Substance and Sexual Activity Alcohol use: Not Currently Comment: occasional- last drink was Friday 12/15 Drug use: Not Currently Types: Marijuana Sexual activity: Not on file Other Topics Concern Not on file Social History Narrative Not on file Social Determinants of Health Financial Resource Strain: Not on file Food Insecurity: No Food Insecurity (12/18/2021) Hunger Vital Sign Worried About Running Out of Food in the Last Year: Never true Ran Out of Food in the Last Year: Never true Transportation Needs: Not on file Stress: Not on file Housing Stability: Not on file ROS -See HPI PHYSICAL EXAM BP 132/92 Pulse 104 Temp 98.4 ??F (36.9 ??C) Resp 16 Ht 1.651 m (5' 5 ) Wt 90.7 kg (200 lb) SpO2 96% Physical Exam Constitutional: General: He is not in acute distress. Appearance: He is normal weight. HENT: Head: Normocephalic and atraumatic. Nose: Nose normal. No congestion. Mouth/Throat: Mouth: Mucous membranes are moist. Pharynx: Oropharynx is clear. Eyes: General: No scleral icterus. Extraocular Movements: Extraocular movements intact. Pupils: Pupils are equal, round, and reactive to light. Cardiovascular: Rate and Rhythm: Regular rhythm. Tachycardia present. Pulses: Normal pulses. Heart sounds: Normal heart sounds. No murmur heard. Pulmonary: Effort: Pulmonary effort is normal. Breath sounds: Normal breath sounds. No wheezing. Abdominal: General: Abdomen is flat. There is distension. Tenderness: There is abdominal tenderness (RUQ > Generalizd). There is no guarding. Musculoskeletal: General: Normal range of motion. Cervical back: Normal range of motion and neck supple. Right lower leg: No edema. Left lower leg: No edema. Skin: General: Skin is warm and dry. Capillary Refill: Capillary refill takes less than 2 seconds. Coloration: Skin is not jaundiced. Neurological: General: No focal deficit present. Mental Status: He is alert and oriented to person, place, and time. Cranial Nerves: No cranial nerve deficit. Motor: No weakness. Psychiatric: Mood and Affect: Mood normal. Behavior: Behavior normal. Medical Decision Making: Problem List: Abdominal pain, melena Differential Diagnosis: Upper V lower GI bleed, decompensated cirrhosis, pancreatitis, gastritis, cholecystitis, metabolic,other Plan: Labs, Imaging, re-evaluation Pulse Oximetry: Saturation: 96% Oxygen Delivery: Room Air Interpretation: No hypoxia at this time RESULTS Labs Reviewed CBC W AUTO DIFFERENTIAL - Abnormal; Notable for the following components: Result Value WBC 13.6 (*) All other components within normal limits COMPREHENSIVE METABOLIC PANEL - Abnormal; Notable for the following components: Sodium 134 (*) Albumin/Globulin Ratio 1.0 (*) All other components within normal limits DIFFERENTIAL MANUAL - Abnormal; Notable for the following components: Lymphocyte % 16 (*) Monocyte % 12 (*) Neutrophil Absolute 9.79 (*) Monocyte Absolute 1.63 (*) Large Platelets PRESENT (*) All other components within normal limits LIPASE BLOOD - Normal Narrative: Lipase results from the [employer] Alinity analyzer may not be comparable with other methodologies. MAGNESIUM BLOOD - Normal PT-INR [facility] - Normal AMMONIA - Normal XR CHEST 1VW PORTABLE (Results Pending) CT ABDOMEN PELVIS W CONTRAST (Results Pending) XR FEMUR LEFT 2VW (Results Pending) INTERVENTIONS Medications 0.9% NaCl injection 3 mL (has no administration in time range) And 0.9% NaCl injection 1-10 mL (has no administration in time range) ondansetron (Zofran) injection 4 mg (4 mg Intravenous $ Given 03/28/242001) 0.9% NaCl IV bolus (0 mL Intravenous Stopped 03/28/242050) Procedures ED Course and Summary: 11:09 PM Patient seen and evaluated, available studies reviewed and interpreted by tn ED Course as of 03/29/24 0459 WedMar 28, 2024 2313 Labs from triage show a mild leukocytosis of the 13.6, normal platelet count, stable hemoglobin of 15.7, INR 1.1. given history of abdominal pain a melanotic stools will give Protonix, obtain CTand x-ray imaging and consult GI for likely admission. [CC] WedMar 29, 20246 After discussion with the GI fellow, they will admit the patient to their service. [CC] ED Course User Index [CC] Vamsi Sellers MD Clinical Impressions as of 03/29/24 0459 Shortness of breath RUQ pain Leukocytosis, unspecified type Gastrointestinal hemorrhage with melena Alcoholic cirrhosis of liver without ascites (HCC) I personally discussed this case with the following Physicians/consultants: gastroenterology Medications given in ED: Yes - see MAR Medications prescribed: No Revised home medications: No Social determinants of health: Yes There are social determinants of health thought to limit diagnosis and treatment efficacy: history of alcohol use disorder. Amount and/or Complexity of Data Reviewed medical complexity: medical complexity, Triage notes and available nursing notes reviewed , Clinical lab tests: ordered and reviewed, Tests in the radiology section of CPT??: ordered and independent interpretation, Independent visualization of images: yes, and Discuss the patient with other providers: yes . ED FINAL DIAGNOSIS 1. Gastrointestinal hemorrhage with melena 2. Shortness of breath 3. RUQ pain 4. Leukocytosis, unspecified type 5. Alcoholic cirrhosis of liver without ascites (HCC) DISPOSITION Admit to [facility] Signed out to Dr. Gonzales pending bed assignment Vamsi Sellers MD Emergency Medicine, PGY-3 * Isaak Ibrahim MD - 03/28/2024 11:04 PM CDT Chief complaint: Anxiety, right abdominal pain, left hip pain 38-year-old male with history of alcohol-related cirrhosis, hypertension, anxiety disorder, depression, insomnia, left hip fracture, alcohol abuse presents to the emergency department with complaintsof anxiety right-sided abdominal pain, left hip pain. Apparently while in the waiting room. Patientalso stated that he was having hallucinations. But this seems to be transient. He currently has no hallucinations and states he has no longer feeling as anxious as he was when he was in the waiting room. Blood pressure 132/92, pulse 104, temperature 98.4 ??F (36.9 ??C), resp. rate 16, height 1.651 m (5' 5 ), weight 90.7 kg (200 lb), SpO2 96%. Head eyes ears nose and throat are unremarkable lungs are clear to auscultation heart is normal sinus rhythm abdomen is tender in the right upper quadrant and flank area. Patient has tenderness in his left hip On review of systems patient complains only of left hip pain, right abdominal pain and the anxiety the separate earlier otherwise he has no current complaints. Patient has allergies to peanut derived products, mushrooms, shellfish Patient's past medical history is as above. Patient's past surgical history is noncontributory to this encounter Differential diagnosis includes decompensated liver cirrhosis, anxiety, left hip pain, left hip fracture Plan for XR evaluation of the left femur CT evaluation of the abdomen pelvis which will include theleft hip laboratory evaluation and consultation with hepatology based on labs and imaging as needed. I have independently evaluated and seen this patient please see the resident note for complete details of final diagnosis and disposition. * Nikko Russ, EMT - 03/28/2024 10:33 PM CDT Pt called over this EDT about 2215 and stated that they were having AH and VH. Pt stated they couldsee spiders crawling up the yepez and that the voices are getting too loud. Pt also appeared to be trembling. CRN and senior operations manager were notified and senior operations manager reassessed pt immediately following. * Lauren Welch RN - 03/28/2024 10:29 PM CDT Introduced myself to pt as RN for the evening Pt changed into scrubs pt stated feel anxious and I usually take ativan and I'm late for my meds my Dr told me to come here so I dont know why I have towait so long pt was given a blanket and helped into a recliner and given a cup of water VSS recliner in locked position * Vivian Pandya, ALFREDO - 03/28/2024 10:15 PM CDT This RN called by structures technician as pt stated to tech that he was experiencing hallucinations. Pt reporting that he is seeing spiders at this time and hearing voices. Denies SI or HI. Endorses psych hx, hasnot had his ativan or other anxiety meds. CSN notified and pt being taken back to room. * Toño Huitron, Graduate Nurse - 03/28/2024 7:16 PM CDT Tech approached proposal manager writer and stated that pt approached them to say that he forgot to mention that he was hearing and seeing things. Pt unable to describe what they are hearing or seeing. * Linda Leslie APRN-ANITA - 03/28/2024 6:25 PM CDT Medical Screening Exam 03/28/2024 6:25 PM Provider contact with the patient Lukas Diaz CC: Pain Abdominal (Pt arrives via EMS due to RUQ pain. Pt is a resident of [facility]. Pt states 2 days ago he was seen an [facility], but hey could not provide care. The pt states he then called his liver specialist who suggested he come to the ED> ) Chief complaint narrative was entered by triage nurse, not by provider Provider in Triage HPI: Lukas Diaz is a 38 year old male PMH as noted below who presents with RUQ pain with liver problem radiates to back. Deep breath makes pain worse. Hx of endstage liver disease. Follows with GI here. Recent reoccurence of broken hip. Currently residing in rehab for those conditions. Went to [facility], no help. Told by GI to come to ED here. +N/V. BM constipated, dark streaks. 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 Dark yellow. Has not drank alcohol in a year. Feels brain fog. Limited Chart History: Past Medical History: Diagnosis Date Anxiety disorder Depression Fracture neck of left femur Hypertension Insomnia Past Surgical History: Procedure Laterality Date ENDOSCOPY, UPPER N/A 03/05/2022 N/A; EGD ENDOSCOPY, UPPER N/A 06/18/2022 N/A; EGD No current facility-administered medications for this encounter. Current Outpatient Medications Medication Sig Dispense Refill acetaminophen (Tylenol) 500 MG tablet Take 1 (one) tablet by mouth every 6 hours as needed baclofen (LIORESAL) 10 MG tablet Take 2 (two) tablets by mouth 2 times daily May cause drowsiness. buPROPion (Wellbutrin) 75 MG tablet Take 1 (one) tablet by mouth once daily busPIRone (BUSPAR) 5 MG tablet Take 1 (one) tablet by mouth 2 times daily Rober-Gest Antacid 500 MG chew tablet Take 1 (one) tablet by mouth 3 times daily with meals diazePAM (Valium) 2 MG tablet Take 1 [...] (one) tablet by mouth 2 times daily gabapentin (Neurontin) 400 MG capsule Take 1 (one) capsule by mouth 3 times daily HYDROcodone-acetaminophen ([place]) 5-325 MG tablet Take 1 (one) tablet by mouth every 6 hours as needed for Pain hydrOXYzine HCl (Atarax) 25 MG tablet Take 1 (one) tablet by mouth 3 times daily Lactobacillus Acid-Pectin (Acidophilus/Pectin) capsule Take 1 (one) capsule by mouth 2 times daily lactulose (Enulose) 10 GM/15ML solution Take 30 mL by mouth 3 times daily melatonin 3 MG tablet Take 2 (two) tablets by mouth nightly as needed ondansetron (Zofran) 4 MG tablet Take 1 (one) tablet by mouth every 8 hours as needed potassium chloride ER (Klor-Con M) 20 MEQ tablet Take 1 (one) tablet by mouth once daily propranolol (INDERAL) 10 MG tablet Take 1 (one) tablet by mouth 2 times daily QUEtiapine (SEROquel) 25 MG tablet Take 0.5 (one-half) tablet by mouth 3 times daily rifAXIMin (Xifaxan) 550 MG tablet Take 1 (one) tablet by mouth 2 times daily 60 tablet 11 spironolactone (Aldactone) 100 MG tablet Take 1 (one) tablet by mouth once daily sucralfate (Carafate) 1 GM/10ML suspension Take 10 mL by mouth 3 times daily thiamine (Vitamin B-1) 100 MG tablet Take 1 (one) tablet by mouth once daily traZODone (Desyrel) 50 MG tablet Take 1 (one) tablet by mouth at bedtime vitamin D3 (Cholecalciferol) 125 MCG (5000 UT) capsule Take 1 (one) capsule by mouth once daily Allergies Allergen Reactions Peanut-Derived Anaphylaxis Mushroom Extract Complex Other Chest tightness Shellfish Allergy Other Chest tightness PCP: Gregorio James MD (Above may be pending completion) Review of Systems: Primary System Noted in HPI. All other systems reviewed and are negative. Vital Signs reviewed in Triage BP 132/92 Pulse 104 Temp 98.4 ??F (36.9 ??C) Resp 16 Ht 1.651 m (5' 5 ) Wt 90.7 kg (200 lb) SpO2 96% Pertinent Physical Findings: Constitutional: vitals as above, WDWN, groomed,nontoxic but appears to feel uncomfortable Head: Head normocephalic, atraumatic Eyes: conjunctiva clear ENT: no rhinorrhea Neck: neck supple, Resp: respirations even and unlabored, lungs clear bilaterally CV: Heart RRR, no m/c/r/g Abd: distended, soft Skin: warm, dry,color normal for ethnicity MSK: in wheelchair Neuro: A&O x 3, Psych: Normal affect Complete physical exam is limited due to patient sitting in up right position in chair MDM: I have reviewed all lab and imaging resulted ordered during this visit and available at the time ofthis note. Triage notes and available nursing notes reviewed. Previous medical record reviewed whenavailable. Management options include but not limited to: physical exam, laboratory testing, discussion with other providers. PLAN Diagnostic tests ordered: No orders of the defined types were placed in this encounter. MEDICATIONS FOR CURRENT ENCOUNTER: SCHEDULED MEDICATIONS: No current facility-administered medications for this encounter. CONTINUOUS MEDICATIONS: No current facility-administered medications for this encounter. PRN MEDICATIONS: No current facility-administered medications for this encounter. Clinical Impression: 1.RUQ abd pain Based on the Medical Screening Exam performed and diagnostic tests at this time, further evaluationis indicated and will be performed. Patient will be transferred to a main ED room when one is available and care will be transferred to ER provider. EMILY Covington documented in this encounter Plan of Treatment Upcoming Encounters Date Type Department Care Team (Late st Contact Info) Description 11/29/2024 8:30 AM BEAUTY THERAPIST Office Visit [facility] - Orthopedic Surgery [address] [place] [id number] Toño Cabrera MD [address] [facility] [address] [place] [address] 01/08/2025 8:00 AM CDT Appointment [address] [address] 01/08/2025 9:00 AM CDT Office Visit [facility] - GI [address] [facility] [place] [id number] Amos Pabon MD [facility] [address] [place] [address] documented as of this encounter Goals Goal [...] Procedure Name Priority Date/Time Associated Diagnosis Comments ALCOHOL ETHYL BLOOD STAT 03/29/2024 1 2:08 PM CDT CULTURE BLOOD Timed 03/29/2024 4:31 AM CDT CULTURE BLOOD Timed 03/29/2024 4:30 AM CDT CBC W/O DIFFERENTIAL STAT 03/29/2024 4:30 AM CDT Shortness of breath COMPREHENSIVE METABOLIC PANEL STAT 03/29/2024 4:30 AM CDT Alcoholic cirrhosis of liver without ascites (HCC) PHOSPHORUS BLOOD STAT 03/29/2024 4:3 0 AM CDT Shortness of breath MAGNESIUM BLOOD STAT 03/29/2024 4:30 AM CDT Shortness of breath LIPASE BLOOD STAT 03/29/2024 4:30 AM CDT URINALYSIS REFLEX MICROSCOPIC REFLEX CULTURE STAT 03/29/2024 3:54 AM CDT OT EVAL AND TREAT Routine 03/29/2024 12: 14 AM CDT PT EVAL AND TREAT Routine 03/29/2024 12: 14 AM CDT XR FEMUR LEFT 2VW STAT 03/29/2024 12: 13 AM CDT Shortness of breath CT ABDOMEN PELVIS W CONTRAST STAT 03/28/2024 11:59 PM CDT Shortness of breath PT-[facility] STAT 03/28/2024 7:13 PM CDT DIFFERENTIAL MANUAL STAT 03/28/2024 7 :13 PM CDT CBC W AUTO DIFFERENTIAL STAT 03/28/2024 7:13 PM CDT COMPREHENSIVE METABOLIC PANEL STAT 03/28/2024 7:13 PM CDT MAGNESIUM BLOOD STAT 03/28/2024 7:13 PM CDT LIPASE BLOOD STAT 03/28/2024 7:13 PM CDT AMMONIA STAT 03/28/2024 7:13 PM CDT XR CHEST 1VW PORTABLE STAT 03/28/2024 7:10 PM CDT Shortness of breath documented in this encounter Results * ALCOHOL ETHYL BLOOD (03/29/2024 12:08 PM CDT) Ethanol (mg/dL) <10 <10 mg/dL 12:36 PM CDT [facility] Ethanol Calculated (g/dL) <0.010 <=0.010 g/dL 03/29/2024 12:36 PM CDT [facility] Blood BLOOD SPECIMEN / Unknown Venipuncture / Unknown 03/29/2024 12:08 PM CDT 03/29/2024 12:16 PM CDT Narrative [facility] - 03/29/2024 12:36 PM CDT Ethanol Interp <10: None Detected. Depression of FLYER MAKER: >100 mg/dl Potentially Critical: >250 mg/dl Potentially [...] - CHEMISTR Y ORDERABLES Performing Organization Address [facility] Co de Phone Number [address] [address], [facility] [phone] * CULTURE BLOOD (03/29/2024 4:31 AM CDT) [facility] Culture No growth day 5 DEVAUGHN 04/03/2024 8:01 AM CDT [facility] Blood PERIPHERAL BLOOD / Unknown Lab Venipuncture / Unknown 03/29/2024 4:31 AM CDT 03/29/2024 4:37 AM CDT Isaak Ibrahim MD LAB - MICROBIOLOGY O RDERABLES Performing Organization Address [facility] de Phone Number [facility] [address] [place] [address], [facility] [phone] * PHOSPHORUS BLOOD (03/29/2024 4:30 AM CDT) Phosphorus 2.9 2.8 - 5.1 mg/dL 03/29/2024 5:09 AM CDT [facility] Blood BLOOD SPECIMEN / Unknown Lab Venipuncture / Unknown 03/29/2024 4:30 AM CDT 03/29/2024 4:41 AM CDT Isaak Ibrahim MD LAB - CHEMISTRY KURT ZARAGOZA Performing Organization Address [facility] Co de Phone Number [address] [address], [place] [phone] * MAGNESIUM BLOOD (03/29/2024 4:30 AM CDT) Pathologist [facility] Magnesium 2.1 1.6 - 2.6 mg/dL 03/29/2024 5:09 AM [facility] Blood BLOOD SPECIMEN / Unknown Lab Venipuncture / Unknown 03/29/2024 4:30 AM CDT 03/29/2024 4:41 AM CDT Isaak Ibarhim MD LAB - CHEMISTRY KURT ZARAGOZA [facility] Organization Address City/State/ZIP Co de Phone Number [facility] [address] [place] [address] [phone] * (ABNORMAL) COMPREHENSIVE METABOLIC PANEL (03/29/2024 4:30 AM CDT) BUN 10 7 - 26 mg/dL 03/29/2024 5:09 AM [facility] Creatinine 0.84 0.71 - 1.16 mg/dL 03/29/2024 5:09 AM [facility] Sodium 135(L) 136 - 145 mmol/L 03/29/2024 5:09 AM [facility] Potassium 3.8 3.5 - 4.5 mmol/L 03/29/2024 5:09 AM [facility] Chloride 105 98 - 107 mmol/L 03/29/2024 5:09 AM [facility] CO2 22 22 - 29 mmol/L 03/29/2024 5:09 AM [facility] Glucose 87 70 - 115 mg/dL 03/29/2024 5:09 AM [facility] Calcium 9.6 8.4 - 10.2 mg/dL 03/29/2024 5:09 AM [facility] Protein Total 7.6 6.0 - 8.3 g/dL 03/29/2024 5:09 AM [facility] Albumin 3.8 3.4 - 5.0 g/dL 03/29/2024 5:09 AM [facility] Bilirubin Total 0.9 0.2 - 1.2 mg/dL 03/29/2024 5:09 AM [facility] Alkaline Phosphatase 81 40 - 150 U/L 03/29/2024 5:09 AM [facility] ALT 20 5 - 55 U/L 03/29/2024 5:09 AM [facility] AST 17 5 - 34 U/L 03/29/2024 5:09 AM [facility] Anion Gap 8 6 - 16 03/29/2024 5:09 AM [facility] BUN/Creatinine Ratio 12 7 - 23 03/29/2024 5:09 AM [facility] Osmolality Calculated 278 275 - 295 mOsm/kg 03/29/2024 5:09 AM [facility] Albumin/Globulin Ratio 1.0(L) 1.1 - 2.3 03/29/2024 5:09 AM [facility] eGFR by CKD-EPI >90 >=90 mL/min/1.7 3 m2 03/29/2024 5:09 AM [facility] Blood BLOOD SPECIMEN / Unknown Lab Venipuncture / Unknown 03/29/2024 4:30 AM CDT 03/29/2024 4:41 AM T Isaak Ibrahim MD LAB - CHEMISTRY ORDE [facility] Organization Address City/State/ZIP Co de Phone Number [facility] [address] [place] [address], [facility] [phone] * CBC W/O DIFFERENTIAL (03/29/2024 4:30 AM T) WBC 8.7 4.0 - 10.7 x10E9/L 03/29/2024 5:08 AM [facility] RBC Count 4.81 4.30 - 5.80 x10E12/L 03/29/2024 5:08 AM [facility] Hemoglobin 15.3 13.3 - 17.5 g/dL 03/29/2024 5:08 AM [facility] Hematocrit 43.4 38.7 - 51.1 % 03/29/2024 5:08 AM [facility] MCV 90.2 80.0 - 98.0 fL 03/29/2024 5:08 AM [facility] MCH 31.8 26.7 - 33.6 pg 03/29/2024 5:08 AM [facility] MCHC 35.3 31.7 - 36.3 g/dL 03/29/2024 5:08 AM CDT [facility] RDW-CV 12.1 11.3 - 14.8 % 03/29/2024 5:08 AM CDT [facility] Platelet Count 178 150 - 420 x10E9/L 03/29/2024 5:08 AM CDT [facility] MPV 10.5 7.8 - 11.4 fL 03/29/2024 5:08 AM CDT [facility] Blood BLOOD SPECIMEN / Unknown Lab Venipuncture / Unknown 03/29/2024 4:30 AM CDT 03/29/2024 4:42 AM CDT Isaak Ibrahim MD LAB - HEMATOLOGY ORD ERABLES [address] [address], [place] [phone] * LIPASE BLOOD (03/29/2024 4:30 AM CDT) Lipase 13 8 - 78 U/L 03/29/2024 5:09 AM CDT [facility] Blood BLOOD SPECIMEN / Unknown Lab Venipuncture / Unknown 03/29/2024 4:30 AM CDT 03/29/2024 4:41 AM CDT Narrative [facility] - 03/29/2024 5:09 AM CDT Lipase results from the Jenkins Alinity analyzer may not be comparable with other methodologies. Isaak Ibrahim MD LAB - CHEMISTRY ORDSpenser ZARAGOZA [address] [address], [place] [phone] * CULTURE BLOOD (03/29/2024 4:30 AM CDT) Culture No growth day 5 DEVAUGHN 04/03/2024 8:01 AM CDT [facility] Blood PERIPHERAL BLOOD / Unknown Lab Venipuncture / Unknown 03/29/2024 4:30 AM CDT 03/29/2024 4:37 AM CDT Isaak Ibrahim MD LAB - MICROBIOLOGY O RDERABLES Performing Organization Address City/State/[facility] Co de Phone Number [facility] [address] [place], [place] [address], [facility] [phone] * (ABNORMAL) URINALYSIS REFLEX MICROSCOPIC REFLEX CULTURE (03/29/2024 3:54 AM CDT) Color UA Colorless(A) Straw, Yellow 03/29/2024 4:19 AM T [facility] Clarity UA Clear Clear 03/29/2024 4:19 AM [facility] Specific [place] UA 1.009 1.005 - 1.030 03/29/2024 4:19 AM [facility] pH UA 7.0 5.0 - 8.0 pH 03/29/2024 4:19 AM [facility] Protein UA Negative Negative 03/29/2024 4:19 AM [facility] Glucose UA Negative Negative 03/29/2024 4:19 AM [facility] Ketone UA Negative Negative 03/29/2024 4:19 AM [facility] Bilirubin UA Negative Negative 03/29/2024 4:19 AM [facility] Blood UA Negative Negative 03/29/2024 4:19 AM [facility] Nitrite UA Negative Negative 03/29/2024 4:19 AM [facility] Leukocyte Esterase Negative Negative 03/29/2024 4:19 AM [facility] Urobilinogen UA Negative Negative mg/dL 03/29/2024 4:19 AM [facility] Comment UA Microscopic not indicated. 03/29/2024 4:19 AM [facility] Urine URINE SPECIMEN OBTAINED BY CLEAN CATCH PROCEDURE / Unknown Collection / Unknown 03/29/2024 3:54 AM CDT 03/29/2024 3:56 AM CDT Narrative [facility] - 03/29/2024 4:19 AM CDT Isaak Ibrahim MD LAB - URINALYSIS ORD ERABLES [facility] [address] [place] [address], [facility] [phone] * XR FEMUR LEFT 2VW (03/29/2024 12:13 AM CDT) Anatomical Region Laterality Modality Lower Extremity Radiographic Юлия ging 03/29/2024 1:16 AM CDT Narrative 03/29/2024 11:37 AM CDT PROCEDURE: ??XR FEMUR LEFT 2VW, DATE/TIME OF EXAM: ??03/29/2024 12:13 AM, LOCATION ??[facility] INDICATION: R06.02: Shortness of breath ADDITIONAL CLINICAL [...] on 03/29/2024 11:37 AM Procedure Note Ludin Nuno MD - 03/29/2024 PROCEDURE: XR FEMUR LEFT 2VW, DATE/TIME OF EXAM: 03/29/2024 12:13 AM, LOCATION [facility] INDICATION: R06.02: Shortness of breath ADDITIONAL CLINICAL [...] head. > Dictated by Chad Francisco DO (chairman president and chief executive officer). I, Ramiro Naranjo MD have personally reviewed and interpreted this examination/study. > Interpreting Provider: Ramiro Naranjo MD on 03/29/2024 2:30 AM Narrative 03/29/2024 2:30 AM CDT PROCEDURE: ??CT ABDOMEN PELVIS W CONTRAST, DATE/TIME OF EXAM: ??03/29/2024 12:00 AM, LOCATION ??[facility] INDICATION: R06.02: Shortness of breath ADDITIONAL CLINICAL [...] DATE/TIME OF EXAM: 03/29/2024 12:00 AM, LOCATION [facility] INDICATION: R06.02: Shortness of breath ADDITIONAL CLINICAL [...] femoralhead. > Dictated by Chad Francisco DO (chairman president and chief executive officer). I, Ramiro Naranjo MD have personally reviewed and interpreted this examination/study. > Interpreting Provider: Ramiro Naranjo MD on 03/29/2024 2:30 AM Isaak Ibrahim MD CT ORDERABLES * (ABNORMAL) DIFFERENTIAL MANUAL (03/28/2024 7:13 PM CDT) Neutrophil % 72 41 - 74 % 03/28/2024 8:38 PM CDT [facility] Lymphocyte % 16(L) 17 - 47 % 03/28/2024 8:38 PM [facility] Monocyte % 12(H) 3 - 11 % 03/28/2024 8:38 PM T [facility] Neutrophil Absolute 9.79(H) 1.60 - 7.50 x10E9/L 03/28/2024 8:38 PM T [facility] Lymphocyte Absolute 2.18 1.00 - 4.40 x10E9/L 03/28/2024 8:38 PM T [facility] Monocyte Absolute 1.63(H) 0.15 - 1.00 x10E9/L 03/28/2024 8:38 PM [facility] RBC Morphology NORMAL 03/28/2024 8:38 PM [facility] Large Platelets PRESENT(A) (none) 8:38 PM [facility] Blood BLOOD SPECIMEN / Unknown Venipuncture / Unknown 03/28/2024 7:13 PM CDT 03/28/2024 7:18 PM CDT Linda Leslie APRN-BASKET PERSON LAB - HEMATO LOGY ORDERABLES [address] [address], [facility] [phone] * AMMONIA (03/28/2024 7:13 PM CDT) Ammonia 37 <=72 umol/L 03/28/2024 7:40 PM CDT [facility] Blood BLOOD SPECIMEN / Unknown Venipuncture / Unknown 03/28/2024 7:13 PM CDT 03/28/2024 7:16 PM CDT Linda Leslie APRN-BASKET PERSON LAB - CHEMIS TRY ORDERABLES [address] [address], [place] [phone] * PT-[facility] (03/28/2024 7:13 PM CDT) PT 13.8 12.1 - 14.8 Seconds 03/28/2024 7:44 PM CDT [facility] INR 1.1 See Comment 03/28/2024 7:44 PM CDT [facility] Comment:The suggested therap eutic range for standard coumadin (warfarin) therapy is an INR of 2.0-3.0. For high-risk patients (Mechanical Mitral Valve Prosthesis, etc.), the suggested prophylactic therapeutic range is an INR of 2.5-3.5. Blood BLOOD SPECIMEN / Unknown Venipuncture / Unknown 03/28/2024 7:13 PM CDT 03/28/2024 7:16 PM CDT Linda Leslie APRN-BASKET PERSON LAB - COAGUL ATION ORDERABLES Performing Organization Address City/[facility]/ZIP Co de Phone Number [address] [address], [facility] [phone] * MAGNESIUM BLOOD (03/28/2024 7:13 PM CDT) Pathologist [facility] Magnesium 2.1 1.6 - 2.6 mg/dL 03/28/2024 7:51 PM CDT [facility] Blood BLOOD SPECIMEN / Unknown Venipuncture / Unknown 03/28/2024 7:13 PM CDT 03/28/2024 7:16 PM CDT [facility] LAB - CHEMIS TRY ORDERABLES [address] [address], [facility] [phone] * LIPASE BLOOD (03/28/2024 7:13 PM CDT) Lipase 12 8 - 78 U/L 03/28/2024 7:51 PM CDT [facility] Blood BLOOD SPECIMEN / Unknown Venipuncture / Unknown 03/28/2024 7:13 PM CDT 03/28/2024 7:16 PM CDT [facility] - 03/28/2024 7:51 PM CDT Lipase results from the Jenkins Alinity analyzer may not be comparable with other methodologies. Linda Asiachioma Leslie MANAGER ENGAGEMENT-BASKET PERSON LAB - CHEMIS TRY ORDERABLES [facility] [address] [place] [address], [facility] [phone] * (ABNORMAL) COMPREHENSIVE METABOLIC PANEL (03/28/2024 7:13 PM CDT) BUN 16 7 - 26 mg/dL 03/28/2024 7:53 PM [facility] Creatinine 0.88 0.71 - 1.16 mg/dL 03/28/2024 7:53 PM [facility] Sodium 134(L) 136 - 145 mmol/L 03/28/2024 7:53 PM [facility] Potassium 3.8 3.5 - 4.5 mmol/L 03/28/2024 7:53 PM [facility] Chloride 101 98 - 107 mmol/L 03/28/2024 7:53 PM [facility] CO2 24 22 - 29 mmol/L 03/28/2024 7:53 PM [facility] Glucose 87 70 - 115 mg/dL 03/28/2024 7:53 PM [facility] Calcium 9.7 8.4 - 10.2 mg/dL 03/28/2024 7:53 PM [facility] Protein Total 7.7 6.0 - 8.3 g/dL 03/28/2024 7:53 PM [facility] Albumin 3.9 3.4 - 5.0 g/dL 03/28/2024 7:53 PM [facility] Bilirubin Total 0.5 0.2 - 1.2 mg/dL 03/28/2024 7:53 PM [facility] Alkaline Phosphatase 82 40 - 150 U/L 03/28/2024 7:53 PM [facility] ALT 18 5 - 55 U/L 03/28/2024 7:53 PM [facility] AST 14 5 - 34 U/L 03/28/2024 7:53 PM [facility] Anion Gap 9 6 - 16 03/28/2024 7:53 PM [facility] BUN/Creatinine Ratio 18 7 - 23 03/28/2024 7:53 PM [facility] Osmolality Calculated 279 275 - 295 mOsm/kg 03/28/2024 7:53 PM [facility] Albumin/Globulin Ratio 1.0(L) 1.1 - 2.3 03/28/2024 7:53 PM [facility] eGFR by CKD-EPI >90 >=90 mL/min/1.7 3 m2 03/28/2024 7:53 PM [facility] Blood BLOOD SPECIMEN / Unknown Venipuncture / Unknown 03/28/2024 7:13 PM CDT 03/28/2024 7:16 PM CDT Linda Leslie MANAGER ENGAGEMENT-BASKET PERSON LAB - CHEMIS TRY ORDERABLES Performing Organization Address City/State/[facility] Co de Phone Number [facility] [address] [place] [address], [facility] [phone] * (ABNORMAL) CBC W AUTO DIFFERENTIAL (03/28/2024 7:13 PM CDT) WBC 13.6(H) 4.0 - 10.7 x10E9/L 03/28/2024 8:38 PM [facility] RBC Count 4.92 4.30 - 5.80 x10E12/L 03/28/2024 8:38 PM [facility] Hemoglobin 15.7 13.3 - 17.5 g/dL 03/28/2024 8:38 PM [facility] Hematocrit 43.9 38.7 - 51.1 % 03/28/2024 8:38 PM [facility] MCV 89.2 80.0 - 98.0 fL 03/28/2024 8:38 PM [facility] MCH 31.9 26.7 - 33.6 pg 03/28/2024 8:38 PM [facility] MCHC 35.8 31.7 - 36.3 g/dL 03/28/2024 8:38 PM CDT [facility] RDW-CV 11.9 11.3 - 14.8 % 03/28/2024 8:38 PM CDT [facility] Platelet Count 175 150 - 420 x10E9/L 03/28/2024 8:38 PM CDT [facility] MPV 9.7 7.8 - 11.4 fL 03/28/2024 8:38 PM CDT [facility] Blood BLOOD SPECIMEN / Unknown Venipuncture / Unknown 03/28/2024 7:13 PM CDT 03/28/2024 7:18 PM CDT Linda Asiachioma Leslie MANAGER ENGAGEMENT-BASKET PERSON LAB - HEMATO LOGY ORDERABLES [facility] [address] [place] [address], [facility] [phone] * XR CHEST 1VW PORTABLE (03/28/2024 7:10 PM CDT) Anatomical Region Laterality Modality Chest Radiographic Юлия ging 03/28/2024 9:11 PM CDT Narrative 03/29/2024 6:21 AM CDT PROCEDURE: ??XR CHEST 1VW PORTABLE, DATE/TIME OF EXAM: ??03/28/2024 7:14 PM, LOCATION ??[facility] INDICATION: R06.02: Shortness of breath ADDITIONAL CLINICAL INFORMATION: Ordering Provider Reason For Exam: ??r/o effusion COMPARISON: None. FINDINGS/IMPRESSION: Mild bibasilar linear opacities, likely atelectasis. Superimposed aspiration or infection cannot be excluded. There is no pleural effusion or pneumothorax. The cardiomediastinal silhouette is normal. The visible bony thorax is intact. > Dictated by Lukas Francisco DO ([employer]) Ludin Anton MD have personally reviewed and interpreted this examination/study. > Interpreting Provider: Ludin Nuno MD on 03/29/2024 6:21 AM Procedure Note Ludin Nuno MD - 03/29/2024 PROCEDURE: XR CHEST 1VW PORTABLE, DATE/TIME OF EXAM: 03/28/2024 7:14 PM, LOCATION [facility] INDICATION: R06.02: Shortness of breath ADDITIONAL CLINICAL INFORMATION: Ordering Provider Reason For Exam: r/o effusion COMPARISON: None. FINDINGS/IMPRESSION: Mild bibasilar linear opacities, likely atelectasis. Superimposed aspiration or infection cannot be excluded. There is no pleural effusionor pneumothorax. The cardiomediastinal silhouette is normal. The visiblebony thorax is intact. > Dictated by Lukas Francisco DO (Sheet Metal Foreman) ILudin MD have personally reviewed and interpreted this examination/study. > Interpreting Provider: Ludin Nuno MD on 03/29/2024 6:21 AM Linda Leslie MANAGER ENGAGEMENT-BASKET PERSON DIAGNOSTIC I MAGING ORDERABLES documented in this encounter Visit Diagnoses Diagnosis Gastrointestinal hemorrhage with melena- Primary Shortness of breath RUQ pain Abdominal pain, right upper quadrant Leukocytosis, unspecified type Gastrointestinal hemorrhage with melena Alcoholic cirrhosis of liver without ascites (HCC) Alcoholic cirrhosis of liver Shortness of breath Leukocytosis, unspecified type RUQ pain Abdominal pain, right upper quadrant Alcoholic cirrhosis of liver without ascites (HCC) Alcoholic cirrhosis of liver documented in this encounter Administered Medications Inactive Administered Medications - up to 3 most recent administrations Medication Order MAR Action Action Date Dose Rate Site 0.9% NaCl injection 1-10 mL 1-10 mL, Intracatheter, PRN, Other, peripheral line flush, Starting on Wed03/28/24 at 1829, Until Wed03/29/24 at 2349, Flush peripheral IV catheter with 1-10 mL of normal saline before and after medications and prn to clear blood from the line or to verify patency. 0.9% NaCl injection 1-10 mL 1-10 mL, Intracatheter, PRN, Other, peripheral line flush, Starting on Wed03/29/24 at 0012, Until Wed03/29/24 at 2349, Flush peripheral IV catheter with 1-10 mL of normal saline before and after medications and prn to clear blood from the line or to verify patency. 0.9% NaCl injection 3 mL 3 mL, Intracatheter, EVERY 8 HOURS, First dose on Wed03/28/24 at 2200, Until Discontinued, Flush peripheral IV catheter with 3 mL of normal saline every 8 hours. $ Given 03/29/2024 12:40 AM CDT 3 mL 0.9% NaCl injection 3 mL 3 mL, Intracatheter, EVERY 8 HOURS, First dose on Wed03/29/24 at 0045, Until Discontinued, Flush peripheral IV catheter with 3 mL of normal saline every 8 hours. $ Given 03/29/2024 3:35 PM CDT 3 mL $ Given 03/29/2024 9:29 AM CDT 3 mL $ Given 03/29/2024 12:41 AM CDT 3 mL 0.9% NaCl IV bolus 1,000 mL, at 1,935.48 mL/hr, Administer over 31 Minutes, NOW, 1 dose, On Wed03/28/24 at 1845 $ New Bag/Syringe 03/28/2024 8:02 PM CDT 1,000 mL 1935.48 mL/hr baclofen (Lioresal) tablet 20 mg 20 mg, Oral, 2 TIMES DAILY, First dose on Wed03/29/24 at 0100, Until Discontinued $ Given 03/29/2024 9:28 AM CDT 20 mg $ Given 03/29/2024 12:42 AM CDT 20 mg buPROPion (Wellbutrin) tablet 75 mg 75 mg, Oral, DAILY, First dose on Wed03/29/24 at 0900, Until Discontinued $ Given 03/29/2024 9:29 AM CDT 75 mg busPIRone (Buspar) tablet 5 mg 5 mg, Oral, 2 TIMES DAILY, First dose on Wed03/29/24 at 0100, Until Discontinued $ Given 03/29/2024 9:28 AM CDT 5 mg $ Given 03/29/2024 12:43 AM CDT 5 mg ferrous sulfate tablet 325 mg 325 mg, Oral, DAILY, First dose on Wed03/29/24 at 0900, Until Discontinued, Take with food. Do not take within 2 hours of other medications. $ Given 03/29/2024 9:28 AM CDT 325 mg folic acid (Folvite) tablet 1 mg 1 mg, Oral, DAILY, First dose on Wed03/29/24 at 0900, Until Discontinued $ Given 03/29/2024 9:28 AM CDT 1 mg furosemide (Lasix) tablet 40 mg 40 mg, Oral, 2 TIMES DAILY, First dose on Wed03/29/24 at 0100, Until Discontinued $ Given 03/29/2024 9:28 AM CDT 40 mg $ Given 03/29/2024 12:42 AM CDT 40 mg gabapentin (Neurontin) capsule 400 mg 400 mg, Oral, 3 TIMES DAILY, First dose on Wed03/29/24 at 0900, Until Discontinued $ Given 03/29/2024 3:35 PM CDT 400 m g $ Given 03/29/2024 9:28 AM CDT 400 mg iopamidol (Isovue 370) 76 % contrast Intravenous, CONTRAST ONCE, Starting on Wed03/28/24 at 2349, Until Wed03/29/24 at 2349 $ Given - Contrast 03/28/2024 11:50 PM CDT 100 mL lactated ringers infusion at 75 mL/hr, Intravenous, CONTINUOUS, Starting on Wed03/29/24 at 0045, Until Wed03/29/24 at 0746 $ New Bag/Syringe 03/29/2024 12:44 AM CDT 75 mL/hr lactulose (Chronulac) solution 20 g 20 g, Oral, 3 TIMES DAILY, First dose on Wed03/29/24 at 0900, Until Discontinued $ Given 03/29/2024 3:35 PM CDT 20 g $ Given 03/29/2024 9:29 AM CDT 20 g ondansetron (Zofran) injection 4 mg 4 mg, Intravenous, NOW, 1 dose, On Wed03/28/24 at 1845, Administer over 2 to 5 minutes. $ Given 03/28/2024 8:02 PM CDT 4 mg pantoprazole (Protonix) injection 40 mg 40 mg, Intravenous, 2 TIMES DAILY, First dose on Wed03/29/24 at 0100, Until Discontinued, For every 40 mg of pantoprazole mix with 10 mL Normal Saline (final concentration = 4 mg/mL). Inject SLOWLY over 2 min. $ Given 03/29/2024 9:29 AM CDT 40 mg $ Given 03/29/2024 1:29 AM CDT 40 mg pantoprazole (Protonix) injection 80 mg 80 mg, Intravenous, NOW, 1 dose, On Wed03/28/24 at 2345, For every 40 mg of pantoprazole mix with 10 mL Normal Saline (final concentration = 4 mg/mL). Inject SLOWLY over 2 min. $ Given 03/28/2024 11:42 PM CDT 80 mg propranolol (Inderal) tablet 10 mg 10 mg, Oral, 2 TIMES DAILY, First dose on Wed03/29/24 at 0100, Until Discontinued, Avoid abrupt withdrawal $ Given 03/29/2024 9:29 AM CDT 10 mg $ Given 03/29/2024 12:41 AM CDT 10 mg QUEtiapine (SEROquel) tablet 12.5 mg 12.5 mg, Oral, 3 TIMES DAILY, First dose on Wed03/29/24 at 0900, Until Discontinued $ Given 03/29/2024 3:35 PM CDT 12.5 mg $ Given 03/29/2024 9:29 AM CDT 12.5 mg rifAXIMin (Xifaxan) tablet 550 mg 550 mg, Oral, 2 TIMES DAILY, First dose on Wed03/29/24 at 0100, Until Discontinued $ Given 03/29/2024 9:28 AM CDT 550 m g $ Given 03/29/2024 12:42 AM CDT 550 mg simethicone (Mylicon) chew tablet 80 mg 80 mg, Oral, 3 TIMES DAILY AFTER MEALS, First dose on Wed03/29/24 at 0900, Until Discontinued $ Given 03/29/2024 3:35 PM CDT 80 mg $ Given 03/29/2024 9:29 AM CDT 80 mg spironolactone (Aldactone) tablet 100 mg 100 mg, Oral, DAILY, First dose on Wed03/29/24 at 0900, Until Discontinued $ Given 03/29/2024 9:28 AM CDT 100 mg thiamine (Vitamin B-1) tablet 100 mg 100 mg, Oral, DAILY, First dose on Wed03/29/24 at 0900, Until Discontinued $ Given 03/29/2024 9:28 AM CDT 100 mg documented in this encounter Active and Recently Administered Medications Times are shown in CDT. Scheduled Medication Order 03/27/2024 03/28/2024 03/29/2024 0.9% NaCl injection 3 mL(Linked Group 1) 3 mL, Intracatheter, EVERY 8 HOURS, First dose on Wed03/28/24 at 2200, Until Discontinued, Flush peripheral IV catheter with 3 mL of normal saline every 8 hours. 0040 ($ Given - Prov ider: Lauren Welch RN)0600 (Due)153 (Not Administered - Provider: Ayaz Thomas RN - Reason: Documented on duplicate row) 0.9% NaCl injection 3 mL(Linked Group 2) 3 mL, Intracatheter, EVERY 8 HOURS, First dose on Wed03/29/24 at 0045, Until Discontinued, Flush peripheral IV catheter with 3 mL of normal saline every 8 hours. 0041 ($ Given - Prov ider: Lauren Welch RN)0929 ($ Given - Provider: Ayaz Thomas RN)1535 ($ Given - Provider: Ayaz Thomas RN) 0.9% NaCl IV bolus (COMPLETED) 1,000 mL, at 1,935.48 mL/hr, Administer over 31 Minutes, NOW, 1 dose, On Wed03/28/24 at 1845 2001 ($ New Bag/Syringe - Provider: Amelie Leung RN)2050 (Stopped - Provider: Amelie Leung RN) baclofen (Lioresal) tablet 20 mg 20 mg, Oral, 2 TIMES DAILY, First dose on Wed03/29/24 at 0100, Until Discontinued 41 ($ Given - Prov ider: Lauren Welch RN)09 ($ Given - Provider: Ayaz Thomas RN)2099 (Due) buPROPion (Wellbutrin) tablet 75 mg 75 mg, Oral, DAILY, First dose on Wed03/29/24 at 0900, Until Discontinued 928 ($ Given - Prov ider: Ayaz Thomas RN) busPIRone (Buspar) tablet 5 mg 5 mg, Oral, 2 TIMES DAILY, First dose on Wed03/29/24 at 0100, Until Discontinued 42 ($ Given - Prov ider: Lauren Welch RN)09 ($ Given - Provider: Ayaz Thomas RN)2100 (Due) ferrous sulfate tablet 325 mg 325 mg, Oral, DAILY, First dose on Wed03/29/24 at 0900, Until Discontinued, Take with food. Do not take within 2 hours of other medications. 927 ($ Given - Prov ider: Ayaz Thomas RN) folic acid (Folvite) tablet 1 mg 1 mg, Oral, DAILY, First dose on Wed03/29/24 at 0900, Until Discontinued 927 ($ Given - Prov ider: Ayaz Thomas RN) furosemide (Lasix) tablet 40 mg 40 mg, Oral, 2 TIMES DAILY, First dose on Wed03/29/24 at 0100, Until Discontinued 41 ($ Given - Prov ider: Lauren Welch RN)927 ($ Given - Provider: Ayaz Thomas RN)2100 (Due) gabapentin (Neurontin) capsule 400 mg 400 mg, Oral, 3 TIMES DAILY, First dose on Wed03/29/24 at 0900, Until Discontinued 927 ($ Given - Prov ider: Ayaz Thomas RN)153 ($ Given - Provider: Ayaz Thomas RN)2100 (Due) iopamidol (Isovue 370) 76 % contrast Intravenous, CONTRAST ONCE, Starting on Wed03/28/24 at 2349, Until Wed03/29/24 at 2349 2350 ($ Given - Contrast - Provider: Ellyn Gilbert, RT(R)) lactulose (Chronulac) solution 20 g 20 g, Oral, 3 TIMES DAILY, First dose on Wed03/29/24 at 0900, Until Discontinued 928 ($ Given - Prov ider: Ayaz Thomas RN)153 ($ Given - Provider: Ayaz Thomas RN)2100 (Due) ondansetron (Zofran) injection 4 mg (COMPLETED) 4 mg, Intravenous, NOW, 1 dose, On Wed03/28/24 at 1845, Administer over 2 to 5 minutes. 2001 ($ Given - Provider: Amelie Leung RN) pantoprazole (Protonix) injection 40 mg 40 mg, Intravenous, 2 TIMES DAILY, First dose on Wed03/29/24 at 0100, Until Discontinued, For every 40 mg of pantoprazole mix with 10 mL Normal Saline (final concentration = 4 mg/mL). Inject SLOWLY over 2 min. 012 ($ Given - Prov ider: Lauren Welch RN)928 ($ Given - Provider: Ayaz Thomas RN)2100 (Due) pantoprazole (Protonix) injection 80 mg (COMPLETED) 80 mg, Intravenous, NOW, 1 dose, On Wed03/28/24 at 2345, For every 40 mg of pantoprazole mix with 10 mL Normal Saline (final concentration = 4 mg/mL). Inject SLOWLY over 2 min. 234 ($ Given - Provider: Lauren Welch RN) propranolol (Inderal) tablet 10 mg 10 mg, Oral, 2 TIMES DAILY, First dose on Wed03/29/24 at 0100, Until Discontinued, Avoid abrupt withdrawal 004 ($ Given - Prov ider: Lauren Welch RN)09 ($ Given - Provider: Ayaz Thomas RN)2100 (Due) QUEtiapine (SEROquel) tablet 12.5 mg 12.5 mg, Oral, 3 TIMES DAILY, First dose on Wed03/29/24 at 0900, Until Discontinued 928 ($ Given - Prov ider: Ayaz Thomas RN)153 ($ Given - Provider: Ayaz Thomas RN)2100 (Due) rifAXIMin (Xifaxan) tablet 550 mg 550 mg, Oral, 2 TIMES DAILY, First dose on Wed03/29/24 at 0100, Until Discontinued 41 ($ Given - Prov ider: Lauren Welch RN)09 ($ Given - Provider: Ayaz Thomas RN)2100 (Due) simethicone (Mylicon) chew tablet 80 mg 80 mg, Oral, 3 TIMES DAILY AFTER MEALS, First dose on Wed03/29/24 at 0900, Until Discontinued 928 ($ Given - Prov ider: Ayaz Thomas RN)1535 ($ Given - Provider: Ayaz Thomas RN)1900 (Due) spironolactone (Aldactone) tablet 100 mg 100 mg, Oral, DAILY, First dose on Wed03/29/24 at 0900, Until Discontinued 927 ($ Given - Prov ider: Ayaz Thomas RN) thiamine (Vitamin B-1) tablet 100 mg 100 mg, Oral, DAILY, First dose on Wed03/29/24 at 0900, Until Discontinued 927 ($ Given - Prov ider: Ayaz Thomas RN) Continuous Medication Order 03/27/2024 03/28/2024 03/29/2024 lactated ringers infusion (CANCELED) at 75 mL/hr, Intravenous, CONTINUOUS, Starting on Wed03/29/24 at 0045, Until Wed03/29/24 at 0746 0044 ($ New Bag/Syri nge - Provider: Lauren Welch, RN)0937 (Stopped - Provider: Ayaz Thomas RN) PRN Medication Order 03/27/2024 03/28/2024 03/29/2024 0.9% NaCl injection 1-10 mL(Linked Group 1) 1-10 mL, Intracatheter, PRN, Other, peripheral line flush, Starting on Wed03/28/24 at 1829, Until Wed03/29/24 at 2349, Flush peripheral IV catheter with 1-10 mL of normal saline before and after medications and prn to clear blood from the line or to verify patency. 0.9% NaCl injection 1-10 mL(Linked Group 2) 1-10 mL, Intracatheter, PRN, Other, peripheral line flush, Starting on Wed03/29/24 at 0012, Until Wed03/29/24 at 234, Flush peripheral IV catheter with 1-10 mL of normal saline before and after medications and prn to clear blood from the line or to verify patency. Linked Groups Order Group 1: SALINE LOCK, INSERT AND MAINTAIN (CANCELED) Routine, CONTINUOUS, Starting on Wed03/28/24 at 1830, Until Specified, New collection, Task Completed: Yes And 0.9% NaCl injection 3 mLJump to med 3 mL, Intracatheter, EVERY 8 HOURS, First dose on Wed03/28/24 at 2200, Until Discontinued, Flush peripheral IV catheter with 3 mL of normal saline every 8 hours. And 0.9% NaCl injection 1-10 mLJump to med 1-10 mL, Intracatheter, PRN, Other, peripheral line flush, Starting on Wed03/28/24 at 1829, Until Wed03/29/24 at 2349, Flush peripheral IV catheter with 1-10 mL of normal saline before and after medications and prn to clear blood from the line or to verify patency. Group 2: SALINE LOCK, INSERT AND MAINTAIN (CANCELED) Routine, CONTINUOUS, Starting on Wed03/29/24 at 0015, Until Specified, New collection, Task Completed: Yes And 0.9% NaCl injection 3 mLJump to med 3 mL, Intracatheter, EVERY 8 HOURS, First dose on Wed03/29/24 at 0045, Until Discontinued, Flush peripheral IV catheter with 3 mL of normal saline every 8 hours. And 0.9% NaCl injection 1-10 mLJump to med 1-10 mL, Intracatheter, PRN, Other, peripheral line flush, Starting on Wed03/29/24 at 0012, Until Wed03/29/24 at 2349, Flush peripheral IV catheter with 1-10 mL of normal saline before and after medications and prn to clear blood from the line or to verify patency. documented in this encounter Care Teams Teacher Of The Handicapped Relationship Specialty [place] [address] [place] [phone] PCP - General 08/11/22 05/16/24 Eric Oconnell MD Hospitalist 10/10/21 documented as of this encounter
--- OUTSIDE RECORDS SUMMARY | 2024-10-19 20:12 | XMS_ITS | Encounter Summary ---
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, [place] [phone] Amos Pabon MD [address] [place] [address] [place] [address] documented as of this encounter Goals Goal [...] on filedocumented in this encounter Care Teams Content Checker Relationship Specialty Start Date End Date Gregorio James MD [address] [place] [phone] PCP - General 08/11/22 05/16/24 Eric Oconnell MD Hospitalist 10/10/21 documented as of this encounter
--- OUTSIDE RECORDS SUMMARY | 2024-10-19 20:12 | XMS_ITS | Referral Summary ---
Author Organization [facility] Address [address] [place] [address] Care Team Providers Care Confidential Secretary Name Role Phone Eric Oconnell MD Unavailable [phone] Teodoro Lopez Primary Care Provider Unavailabl e Source Comments [facility],non-owned Affiliates and Associated Physician Practices is amultiple site organization consisting of ambulatory clinics and hospital sitesin [place], [place], [place] and [place]. This disclosure is being madepursuant to the Care Everywhere program and may not contain all information available regarding this patient. 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 Alwaysverify current medications with the patient. Medication Sig Dispensed Refills Start Date End Date Status busPIRone (BUSPAR) 5 MG tablet Take 1 (one) tablet by mouth 2 times daily Active folic acid (FOLVITE) 1 MG tablet Take 1 (one) tablet by mouth once daily Active propranolol (INDERAL) 10 MG tablet Take 1 (one) tablet by mouth 2 times daily Active baclofen (LIORESAL) 10 MG tablet Take 2 (two) tablets by mouth 2 times daily May cause drowsiness. Active ferrous sulfate 325 (65 FE) MG tablet Take 1 (one) tablet by mouth once daily Active acetaminophen (Tylenol) 500 MG tablet Take 1 (one) tablet by mouth every 6 hours as needed Active buPROPion (Wellbutrin) 75 MG tablet Take 1 (one) tablet by mouth once daily 06/25/2023 Active vitamin D3 (Cholecalciferol) 125 MCG (5000 UT) capsule Take 1 (one) capsule by mouth once daily Active Rober-Gest Antacid 500 MG chew tablet Take 1 (one) tablet by mouth 3 times daily with meals 11/13/2022 Active furosemide (Lasix) 40 MG tablet Take 1 (one) tablet by mouth 2 times daily 08/25/2022 Active gabapentin (Neurontin) 400 MG capsule Take 1 (one) capsule by mouth 3 times daily 05/28/2023 Active hydrOXYzine HCl (Atarax) 25 MG tablet Take 1 (one) tablet by mouth 3 times daily 06/07/2023 Active lactulose (Enulose) 10 GM/15ML solution Take 30 mL by mouth 3 times daily 08/16/2022 Active melatonin 3 MG tablet Take 2 (two) tablets by mouth nightly as needed Active ondansetron (Zofran) 4 MG tablet Take 1 (one) tablet by mouth every 8 hours as needed Active potassium chloride ER (Klor-Con M) 20 MEQ tablet Take 1 (one) tablet by mouth once daily 08/24/2022 Active QUEtiapine (SEROquel) 25 MG tablet Take 0.5 (one-half) tablet by mouth 3 times daily 06/09/2023 Active spironolactone (Aldactone) 100 MG tablet Take 1 (one) tablet by mouth once daily 07/30/2022 Active sucralfate (Carafate) 1 GM/10ML suspension Take 10 mL by mouth 3 times daily 06/03/2023 Active thiamine (Vitamin B-1) 100 MG tablet Take 1 (one) tablet by mouth once daily Active Lactobacillus Acid-Pectin (Acidophilus/Pectin) capsule Take 1 (one) capsule by mouth 2 times daily Active traZODone (Desyrel) 50 MG tablet Take 1 (one) tablet by mouth at bedtime Active diclofenac sodium (Voltaren) 1 % gel Apply to affected area as needed Active HYDROcodone-acetamin ophen ([place]) 5-325 MG tablet Take 1 (one) tablet by mouth every 6 hours as needed for Pain Active diazePAM (Valium) 2 MG tablet Take 1 (one) tablet by mouth 3 times daily as needed for Anxiety Active lidocaine (Lidoderm) 5 % patch Apply 1 (one) patch to skin once daily Apply patch to most painful area and remove after 12 hours. May reapply a new patch 12 hours later. 5 patch 03/29/2024 Active simethicone (Mylicon) 80 MG chew tablet Take 1 (one) tablet by mouth 3 times daily, after meals 03/29/2024 Active LORazepam (Ativan) 0.5 MG tablet 05/08/2024 Active LORazepam (Ativan) 1 MG tablet 04/19/2024 Active pantoprazole EC (Protonix) 40 MG tablet 05/10/2024 Active prazosin (Minipress) 1 MG capsule 05/07/2024 Active rifAXIMin (Xifaxan) 550 MG tablet Take 1 (one) tablet by mouth 2 times daily 60 tablet 11 06/01/2024 Active Active Problems Problem Noted Date Diagnosed Date [...] Mass Index 33.28 03/28/2024 6:10 PM CDT Functional Status Functional Status Response Date of [...] person have difficulty concentrating/remembering/making decisions? No 06/18/2022 Plan of Treatment Upcoming Encounters Date Type Department Care Team (Late st Contact Info) Description 11/29/2024 8:30 AM NON CLINICAL ADVISOR Office Visit [facility] - Orthopedic Surgery [address] [place] [phone] Toño Cabrera MD [address] [facility] [address] [place] [address] 01/08/2025 8:00 AM CDT Appointment [address] [phone] 01/08/2025 9:00 AM CDT Office Visit [facility] - GI [address] [facility], [place] [phone] Amos Pabon MD [facility] [place] [address] Goals Goal Patient Goal Type Associated Problems [...] one week prior to your last dose Procedures Procedure Name Priority Date/Time Associated Diagnosis Comments COMPREHENSIVE METABOLIC PANEL STAT 03/29/2024 4:30 AM CDT Alcoholic cirrhosis of liver without ascites (HCC) HEPATITIS C ANTIBODY Routine 10/01/2021 11:38 AM NON CLINICAL ADVISOR Cirrhosis of liver with ascites, unspecified hepatic cirrhosis type (HCC) from Last 3 Months or Most Recently Relevant to Health Maintenance Results * (ABNORMAL) COMPREHENSIVE METABOLIC PANEL (03/29/2024 4:30 AM CDT) BUN 10 7 - 26 mg/dL 03/29/2024 5:09 AM [facility] Creatinine 0.84 0.71 - 1.16 mg/dL 03/29/2024 5:09 AM [facility] Sodium 135(L) 136 - 145 mmol/L 03/29/2024 5:09 AM [facility] Potassium 3.8 3.5 - 4.5 mmol/L 03/29/2024 5:09 AM [facility] Chloride 105 98 - 107 mmol/L 03/29/2024 5:09 AM [facility] CO2 22 22 - 29 mmol/L 03/29/2024 5:09 AM [facility] Glucose 87 70 - 115 mg/dL 03/29/2024 5:09 AM [facility] Calcium 9.6 8.4 - 10.2 mg/dL 03/29/2024 5:09 AM [facility] Protein Total 7.6 6.0 - 8.3 g/dL 03/29/2024 5:09 AM [facility] Albumin 3.8 3.4 - 5.0 g/dL 03/29/2024 5:09 AM [facility] Bilirubin Total 0.9 0.2 - 1.2 mg/dL 03/29/2024 5:09 AM [facility] Alkaline Phosphatase 81 40 - 150 U/L 03/29/2024 5:09 AM [facility] ALT 20 5 - 55 U/L 03/29/2024 5:09 AM [facility] AST 17 5 - 34 U/L 03/29/2024 5:09 AM [facility] Anion Gap 8 6 - 16 03/29/2024 5:09 AM [facility] BUN/Creatinine Ratio 12 7 - 23 03/29/2024 5:09 AM [facility] Osmolality Calculated 278 275 - 295 mOsm/kg 03/29/2024 5:09 AM [facility] Albumin/Globulin Ratio 1.0(L) 1.1 - 2.3 03/29/2024 5:09 AM [facility] eGFR by CKD-EPI >90 >=90 mL/min/1.7 3 m2 03/29/2024 5:09 AM [facility] Blood BLOOD SPECIMEN / Unknown Lab Venipuncture / Unknown 03/29/2024 4:30 AM [facility] 03/29/2024 4:41 AM [facility] Isaak Ibrahim MD LAB - CHEMISTRY [facility] Organization Address City/State/ZIP Co de Phone Number [facility] [address] [place] [phone], [facility] [phone] * HEPATITIS C ANTIBODY (10/01/2021 11:38 AM NON CLINICAL ADVISOR) Hepatitis C Antibody Non-react young Non-reac tive 10/01/2021 1:14 PM NON CLINICAL ADVISOR [facility] Comment:Hepatitis C Antibody screen indicates no serologic evidence of past or current infection with Hepatitis C Virus. Patients with unexplained liver disease who are immunocompromised or suspected of having acute Hepatitis C infection may benefit from Nucleic Acid Test (MARIBELL) for Hepatitis C Viral RNA to confirm Hepatitis C status. Blood BLOOD SPECIMEN / Unknown Lab Venipuncture / Unknown 10/01/2021 11:38 AM NON CLINICAL ADVISOR 10/01/2021 11:46 AM NON CLINICAL ADVISOR Amos Pabon MD LAB - CHEMISTRY [facility]T [facility]AR[facility] [address] [place] [address], [facility] [phone] from Last 3 Months or Most Recently Relevant to Health Maintenance Advance Directives * Full Code (Latest Code Status on File) Date Activated Date Inactivated Comments 03/29/2024 12:13 AM 03/29/2024 11:54 PM Care Teams Confidential Secretary Relationship Specialty Start Date End Date Teodoro Lopez PCP - General 05/17/24 Eric Oconnell MD Hospitalist 10/10/21
--- OUTSIDE RECORDS SUMMARY | 2024-10-19 20:12 | XMS_ITS | Encounter Summary ---
Author Organization [facility] Health Address [address] [facility] [address] Care Team Providers Care Maintenance Data Analyst Name Role Phone Eric Oconnell MD Unavailable [phone] Gregorio James MD Primary Care Provider [phone] Reason for Visit * Reason Comments Pain Knee Left knee injection Encounter Details Date Type Department Care Team (Latest Contact Info) Description 11/17/2023 10:15 AM MANAGER ACCESS Office Visit [facility] - Orthopedic Surgery 1031 [place] [phone] Toño Cabrera MD [facility] [address] [phone] Primary osteoarthritis of left knee (Primary Dx) Social History Tobacco Use Types [...] as of this encounter Progress Notes * Toño Cabrera MD - 11/17/2023 10:15 AM CST Patient returns for repeat left knee injection. Physical exam: Examination of the left knee reveals intact skin without signs of infection. X-rays: None obtained Assessment: Left knee osteoarthritis here for repeat injection Plan: We will proceed with repeat left knee injection today. Please see the procedure note for further details. We will see patient back as needed. GER ACCESS documented in this encounter Procedure Notes * Toño Cabrera MD - 11/17/2023 10:31 AM CSTAssociated Order(s): PROC INJECTION JOINT (SMALL/INTERMED/MAJOR) Procedure(s): TN DRAIN/INJECT LARGE JOINT/BURSA Pre-Procedure Diagnose(s): Primary osteoarthritis of left knee Orthopaedic Surgery Procedure Note Lukas Diaz [id number] Diagnosis: Left knee pain Procedure: Injection of [...] procedure Toño Cabrera MD 11/17/2023 10:31 AM GER ACCESS documented in this encounter Plan of Treatment Upcoming Encounters Date Type Department Care Team (Late st Contact Info) Description 11/29/2024 8:30 AM MANAGER ACCESS Office Visit [facility] - Orthopedic Surgery 10[address] [place] [address] Toño Cabrera MD 1031 [facility] 280 [place] [address] 01/08/2025 8:00 AM CDT Appointment [facility] 1201 [place] [phone] 01/08/2025 9:00 AM CDT Office Visit [facility] - GI 1225 [facility], [place] [phone] Amos Pabon MD [address] [place] [address] [place] [address] documented as of this encounter Goals Goal [...] Procedure Name Priority Date/Time Associated Diagnosis Comments TN DRAIN/INJECT LARGE JOINT/BURSA Routine 11/17/2023 10:31 AM MANAGER ACCESS Primary osteoarthritis of left knee documented in this encounter Results * TN DRAIN/INJECT LARGE JOINT/BURSA (11/17/2023 10:31 AM MANAGER ACCESS) Narrative Toño Cabrera MD - 11/17/2023 10:31 AM MANAGER ACCESS Toño Cabrera MD ? 11/17/2023 10:31 AM Orthopaedic Surgery Procedure Note Lukas Diaz [id number] Diagnosis: Left knee pain Procedure: Injection of [...] encounter Visit Diagnoses Diagnosis Primary osteoarthritis of left knee- Primary Primary localized osteoarthrosis, lower leg documented in this encounter Administered Medications Inactive Administered Medications - up to 3 most recent administrations Medication Order MAR Action Action Date Dose Rate Site lidocaine (Xylocaine) 1 % injection Infiltration, ONCE, 1 dose, On Wed11/17/23 at 1045 $ Given 11/17/2023 12:13 PM MANAGER ACCESS Left Knee triamcinolone acetonide (Kenalog-40) injection 80 mg 80 mg, Intra-articular, ONCE, 1 dose, On Wed11/17/23 at 1045, Shake well before using. $ Given 11/17/2023 12:14 PM MANAGER ACCESS 80 mg Left Knee documented in this encounter Care Teams Maintenance Data Analyst Relationship Specialty Start Date End Date Gregorio James MD [address] [place] [phone] PCP - General 08/11/22 05/16/24 Eric Oconnell MD Hospitalist 10/10/21 documented as of this encounter
--- OUTSIDE RECORDS SUMMARY | 2024-10-19 20:12 | XMS_ITS | Encounter Summary ---
Author Organization [facility] Health Address [address] [facility] [place] [address] Care Team Providers Care Web Analytics Developer Name Role Phone Eric Oconnell MD Unavailable [phone] Gregorio James MD Primary Care Provider [phone] Encounter Details Date Type Department Care Team (Latest Contact Info) Description 06/29/2023 Travel Social History Tobacco Use Types Packs/Day Years Used Date Smoking Tobacco: Former Cigarettes 0.3 10 0 05/2013 - 05/2023 Smokeless Tobacco: Never Comments:Not currently smoki ng [...] st Contact Info) Description 11/29/2024 8:30 AM INDUSTRIAL MANAGEMENT TEACHER Office Visit [facility] - Orthopedic Surgery [address] [place] [address] Toño Cabrera MD [address] [address] 01/08/2025 8:00 AM CDT Appointment [facility] 1201 [place] [phone] 01/08/2025 9:00 AM CDT Office Visit [facility] - GI 1225 [facility], [place] [phone] Amos Pabon MD [address] [place] [address] [place] [address] documented as of this encounter Goals Goal [...] on filedocumented in this encounter Care Teams Web Analytics Developer Relationship Specialty Start Date End Date Gregorio James MD [address] [phone] PCP - General 08/11/22 05/16/24 Eric Oconnell MD Hospitalist 10/10/21 documented as of this encounter
--- OUTSIDE RECORDS SUMMARY | 2024-10-19 20:12 | XMS_ITS | Encounter Summary ---
Author Organization [facility] Address [address] [facility] [place] [address] Care Team Providers Care Small Business Consultant Name Role Phone Eric Oconnell MD Unavailable [phone] Gregorio James MD Primary Care Provider [phone] Reason for Visit * Reason Comments Future Appointment 03/14/24 - Tried to c all pt to let him know that appt with Dr. Pabon on 05/08 needed to be rescheduled to 05/19 along with ultrasound. Sent letter.~Stacey Hopson Encounter Details Date Type Department Care Team (Late st Contact Info) Description 03/14/2024 Telephone [facility] 3L [address] [facility], [place] [address] Amos Pabon MD [facility] [place] [address] Future Appointment (03/14/24 - Tried to call pt to let him know that appt with Dr. Pabon on 05/08 needed to be rescheduled to 05/19 along with ultrasound. Sent letter./~Stacey Hopson /) Social History Tobacco Use Types Packs/Day Years [...] encounter Miscellaneous Notes * Telephone Encounter - Stacey Triplett - 03/14/2024 4:18 PM CDT 03/14/24 - Tried to call pt to let him know that appt with Dr. Pabon on 05/08 needed to be rescheduled to 05/19 along with ultrasound. Sent letter. ~Stacey Hopson documented in this encounter Plan of Treatment Upcoming Encounters Date Type Department Care Team (Late st Contact Info) Description 11/29/2024 8:30 AM FINANCIAL ANALYST INTERN Office Visit [facility] [address] [place] [phone] Toño Cabrera MD [address] [address] 01/08/2025 8:00 AM CDT Appointment [facility] 1201 [place] [address] 01/08/2025 9:00 AM CDT Office Visit [facility] - GI 1225 [facility], [place] [address] Amos Pabon MD 1225 [facility] 2L [place] [address] documented as of this encounter Goals Goal [...] on filedocumented in this encounter Care Teams Small Business Consultant Relationship Specialty Start Date End Date Gregorio James MD [address] [place] [phone] PCP - General 08/11/22 05/16/24 Eric Oconnell MD Hospitalist 10/10/21 documented as of this encounter
--- OUTSIDE RECORDS SUMMARY | 2024-10-19 20:12 | XMS_ITS | Encounter Summary ---
Author Organization [facility] Health Address [address] [facility] [place] [address] Care Team Providers Care Financial Aid Manager Name Role Phone Eric Oconnell MD Unavailable [phone] Gregorio James MD Primary Care Provider Encounter Details Date Type Department Care Team (Latest Contact Info) Description 02/16/2024 Travel Social History Tobacco Use Types Packs/Day [...] st Contact Info) Description 11/29/2024 8:30 AM DIRECTOR AUDIENCE MARKETING Office Visit [facility] - Orthopedic Surgery 10[address] [place] [address] Toño Cabrera MD [address] [address] 01/08/2025 8:00 AM CDT Appointment [facility] 1201 [place] [phone] 01/08/2025 9:00 AM CDT Office Visit [facility] - GI [address] [facility], [place] [phone] Amos Pabon MD [address] [place] [address] [place] [address] documented as of this encounter Goals Goal [...] on filedocumented in this encounter Care Teams Financial Aid Manager Relationship Specialty Start Date End Date Gregorio James MD [address] [place] [phone] PCP - General 08/11/22 05/16/24 Eric Oconnell MD Hospitalist 10/10/21 documented as of this encounter
--- OUTSIDE RECORDS SUMMARY | 2024-10-19 20:12 | XMS_ITS | Encounter Summary ---
Author Organization [facility] Address [address] [facility] [place] [address] Care Team Providers Care Nuclear Fuels Reclamation Engineer Name Role Phone Eric Oconnell MD Unavailable [phone] Gregorio James MD Primary Care Provider [phone] Reason for Visit * Reason Onset Date Comments MEDICATION REFILL 02/25/2024 Encounter Details Date Type Department Care Team (Late st Contact Info) Description 02/25/2024 Refill [facility] - GI [address] [place] [address], [place] [phone] Amos Pabon MD [address] [place] [address] [place] [address] MEDICATION REFILL Social History Tobacco Use Types Packs/Day Years [...] st Contact Info) Description 11/29/2024 8:30 AM MEDICATION TECH Office Visit [facility] - Orthopedic Surgery [address] [place] [address] Toño Cabrera MD 1031 [facility] 280 [place] [address] 01/08/2025 8:00 AM CDT Appointment [facility] 1201 [place] [phone] 01/08/2025 9:00 AM CDT Office Visit [facility] - GI [address] [place] [address], [place] [phone] Amos Pabon MD [address] [place] [address] [place] [address] documented as of this encounter Goals Goal [...] on filedocumented in this encounter Care Teams Nuclear Fuels Reclamation Engineer Relationship Specialty Start Date End Date Gregorio James MD [address] [phone] PCP - General 08/11/22 05/16/24 Eric Oconnell MD Hospitalist 10/10/21 documented as of this encounter
--- OUTSIDE RECORDS SUMMARY | 2024-10-19 20:12 | XMS_ITS | Encounter Summary ---
Author Organization [facility] Health Address [address] [facility] [address] Care Team Providers Care Food Service Counter Clerk Name Role Phone Eric Oconnell MD Unavailable [phone] Gregorio James MD Primary Care Provider [phone] Reason for Visit * Reason Comments Pain Knee Lt Encounter Details Date Type Department Care Team (Latest Contact Info) Description 06/29/2023 9:00 AM CDT Office Visit [facility] 1031 [place] [phone] Toño Cabrera MD [address] [phone] Primary osteoarthritis of left knee (Primary Dx) [...] Progress Notes * Toño Cabrera MD - 06/29/2023 9:00 AM CDT Patient returns for repeat left knee injection. [...] Procedure Notes * Toño Cabrera MD - 06/29/2023 9:27 AM CDTAssociated Order(s): PROC INJECTION JOINT (SMALL/INTERMED/MAJOR) Procedure(s): TX DRAIN/INJECT LARGE JOINT/BURSA Pre-Procedure Diagnose(s): Primary osteoarthritis of left knee Orthopaedic Surgery Procedure Note Lukas Diaz [id number] Diagnosis: Left knee pain Procedure: Injection of [...] note. Injection performed by: Myself Blood Loss: Minimal I was present for the entire procedure Toño Cabrera MD 06/29/2023 9:27 AM documented in this encounter Plan of Treatment Upcoming Encounters Date Type Department Care Team (Late st Contact Info) Description 11/29/2024 8:30 AM MONOTYPER Office Visit [facility] - Orthopedic Surgery [address] [place] [address] Toño Cabrera MD 1031 [facility] 280 [place] [address] 01/08/2025 8:00 AM CDT Appointment [facility] 1201 [place] [phone] 01/08/2025 9:00 AM CDT Office Visit [facility] - GI 1225 [facility], [place] [phone] Amos Pabon MD [address] [place] [address] [place] [address] documented as of this encounter Goals Goal [...] Procedure Name Priority Date/Time Associated Diagnosis Comments TX DRAIN/INJECT LARGE JOINT/BURSA Routine 06/29/2023 9:27 AM CDT Primary osteoarthritis of left knee documented in this encounter Results * TX DRAIN/INJECT LARGE JOINT/BURSA (06/29/2023 9:27 AM CDT) Narrative Toño Cabrera MD - 06/29/2023 9:27 AM CDT Toño Cabrera MD ? 06/29/2023 ??3:12 PM Orthopaedic Surgery Procedure Note Lukas Diaz [id number] Diagnosis: Left knee pain Procedure: Injection of [...] % injection Infiltration, ONCE, 1 dose, On Wed06/29/23 at 0930 $ Given 06/29/2023 2:22 PM CDT Left Knee triamcinolone acetonide (Kenalog-40) injection 80 mg 80 mg, Intra-articular, ONCE, 1 dose, On Wed06/29/23 at 0930, Shake well before using. $ Given 06/29/2023 2:23 PM CDT 80 mg Left Knee documented in this encounter Care Teams Food Service Counter Clerk Relationship Specialty Start Date End Date Gregorio James MD [address] [place] [phone] PCP - General 08/11/22 05/16/24 Eric Oconnell MD Hospitalist 10/10/21 documented as of this encounter
--- OUTSIDE RECORDS SUMMARY | 2024-10-19 20:12 | XMS_ITS | Encounter Summary ---
Author Organization [facility] Address [address] [facility] [place] [address] Care Team Providers Care Strategic Planning Director Name Role Phone Eric Oconnell MD Unavailable [phone] Teodoro Lopez Primary Care Provider Unavailabl e Reason for Visit * Reason Comments Medication Issue Encounter Details Date Type Department Care Team (Late st Contact Info) Description 05/24/2024 Telephone [facility] [place] [address] [place] [address], [place] [address] Amos Pabon MD [address] [place] [address] [place] [address] Medication Issue Social History Tobacco Use Types [...] as of this encounter Progress Notes * Angela Garg RN - 05/24/2024 8:23 AM CDT Spoke with patient, who explained not receiving Xifaxan since before February 2024 due to prison stating not needing it because he takes Lactulose. Patient resides in [facility] P# [phone], F# [phone]. This nurse spoke with ALFREDO Jaramillo who stated PA was denied and patient was kept on Lactulose for HE. This nurse inquired if patient has applied for the Xifaxan assistance program. Nurse stated uncertainty however if approved a new order will need to be sent to [facility] in [facility]. Please reach out to Ella with an update. documented in this encounter Miscellaneous Notes * Telephone Encounter - Meenu Rojo, [facility] - 06/01/2024 9:00 AM CDT The prior authorization for Xifaxan has been approved; the insurance decision letter is scanned into media. This typewriter tester then [facility] ([phone]) and spoke with Amelie to notify staff of the PA approval. She requested that I fax the insurance determination letter to the facility ([phone]) and once received they will reach out to the Pharmacy to process the script. Medication Prior Authorization Medication: Xifaxan 550 mg tablet; #60 per 30 days Diagnosis Code: K76.82 (hepatic encephalopathy) Status: APPROVED THROUGH 11-27-2024 Submitted via: Cover My Meds (Daily:[id number]) Insurance: [employer] / [employer] Medicare Helpdesk: [phone] Amos Pabon, Franchesca Stuart RN, Kay Lambert RN * Telephone Encounter - Meenu Rojo RPhT - 05/31/2024 12:11 PM CDT This typewriter tester initiated and submitted a prior authorization to the patient's insurance for Xifaxan via CoverMyMeds. Pending insurance response; I will update status when available. Medication Prior Authorization Medication: Xifaxan 550 mg tablet; #60 per 30 days Diagnosis Code: K76.82 (hepatic encephalopathy) Status: Submitted - Pending Submitted via: Cover My Meds (Daily:[email or web address]) Insurance: [employer] / [employer] Medicare Case Number: n/a Helpdesk: [phone] Message routed to Maribel Garg RN documented in this encounter Plan of Treatment Upcoming Encounters Date Type Department Care Team (Late st Contact Info) Description 11/29/2024 8:30 AM PHARMACIST INTERN Office Visit [facility] - Orthopedic Surgery 1031 [place] [address] Toño Cabrera MD [address] [address] 01/08/2025 8:00 AM CDT Appointment [address] [phone] 01/08/2025 9:00 AM CDT Office Visit [facility] - GI 1225 [facility], [place] [address] Amos Pabon MD [facility] [place] [address] documented as of this encounter Goals Goal [...] on filedocumented in this encounter Care Teams Strategic Planning Director Relationship Specialty Start Date End Date Teodoro Lopez PCP - General 05/17/24 Eric Oconnell MD Hospitalist 10/10/21 documented as of this encounter
--- OUTSIDE RECORDS SUMMARY | 2024-10-19 20:12 | XMS_ITS | Encounter Summary ---
Author Organization [facility] Address [address] [facility] [place] [address] Care Team Providers Care Solution Maker Name Role Phone Eric Oconnell MD Unavailable [phone] Gregorio James MD Primary Care Provider [phone] Reason for Referral * Radiology Services (Routine) - Closed Specialty Diagnoses / Procedures Referred By Rod young Referred To Contact Ultrasound Diagnoses Cirrhosis of liver with ascites, unspecified hepatic cirrhosis type (HCC) Procedures US ABDOMEN LIMITED Klarissa Rutledge APRN-CNP 12[address] [facility] 3[place] [address] [address] Referral ID Status Reason Start Date Expiration Date Visits Re quested Visits Authorized [id number] Closed 02/19/2023 02/19/2024 1 1 Reason for Visit * Radiology Services (Routine) - Closed Specialty Diagnoses / Procedures Referred By Contmegan young Referred To Contact Ultrasound Diagnoses Cirrhosis of liver with ascites, unspecified hepatic cirrhosis type (HCC) Procedures US ABDOMEN LIMITED Klarissa Rutledge APRN-CNP [address] [facility] 3[place] [address] [facility] Us [facility] [place] [address] Referral ID Status Reason Start Date Expiration Date Visits Re quested Visits Authorized [id number] Closed 02/19/2023 02/19/2024 1 1 Encounter Details Date Type Department Care Team (Tracy st Contact Info) Description 08/25/2023 7:53 AM CDT - 08/25/2023 11:59 PM CDT Hospital Encounter [facility] 1201 [place] [address] Klarissa Rutledge, INFLATED BALL MOLDER-STEVEDORING SUPERVISOR 12[address] [facility] 3[facility] [place] [address] Discharge Disposition: Home or Self Care Social [...] mouth 3 times daily with meals 11/13/2022 diclofenac sodium (Voltaren) 1 % gel Apply [...] capsule by mouth 3 times daily 05/28/2023 hydrOXYzine HCl (Atarax) 25 MG tablet Take 1 (one) tablet by mouth 3 times daily 06/07/2023 Lactobacillus Acid-Pectin (Acidophilus/Pectin) capsule Take 1 (one) capsule by mouth 2 times daily lactulose (Enulose) 10 GM/15ML solution Take 30 mL by mouth 3 times daily 08/16/2022 melatonin 3 MG tablet Take 2 (two) [...] tablet by mouth 3 times daily 06/09/2023 spironolactone (Aldactone) 100 MG tablet Take 1 [...] mouth 2 times daily 60 tablet 11 06/11/2022 02/25/2024 traMADol (ULTRAM) 50 MG tablet Take 1 (one) tablet by mouth every 6 hours as needed 28 tablet 12/19/2021 11/17/2023 documented as of this encounter Plan of Treatment Upcoming Encounters Date Type Department Care Team (Late st Contact Info) Description 11/29/2024 8:30 AM NATIONAL SALES Office Visit [facility] - Orthopedic Surgery 1031 [place] [address] Toño Cabrera MD 1031 [facility] 280 [place] [address] 01/08/2025 8:00 AM CDT Appointment [facility] 1201 [place] [phone] 01/08/2025 9:00 AM CDT Office Visit [facility] - GI 1225 [facility], [place] [phone] Amos Pabon MD [address] [place] [address] [place] [address] documented as of this encounter Goals Goal [...] Procedure Name Priority Date/Time Associated Diagnosis Comments US ABDOMEN LIMITED Routine 08/25/2023 8: 34 AM CDT Cirrhosis of liver with ascites, unspecified hepatic cirrhosis type (HCC) documented in this encounter Results * US ABDOMEN LIMITED (08/25/2023 8:34 AM CDT) Anatomical Region Laterality Modality Abdomen Ultrasound 08/25/2023 8:29 AM CDT Impressions 08/25/2023 10:18 AM CDT Impression: 1.Hepatic cirrhosis with sequela of portal hypertension including recanalization of the umbilical vein. 2.Liver Visualization Score B: Moderate limitations. 3.US-1 Negative. Repeat surveillance US in 6 months. Report dictated by Hany Cornelius MD, (doctor of radiology). I, Bina Perez MD have personally reviewed and interpreted this examination/study. > Interpreting Provider: Bina Perez MD on 08/25/2023 10:18 AM Narrative 08/25/2023 10:18 AM CDT PROCEDURE: ??US ABDOMEN LIMITED, DATE/TIME OF EXAM: ??08/25/2023 7:53 AM, LOCATION ??[facility] INDICATION: K74.60: Cirrhosis of liver with ascites, [...] DATE/TIME OF EXAM: 08/25/2023 7:53 AM, LOCATION [facility] INDICATION: K74.60: Cirrhosis of liver with ascites, [...] months. Report dictated by Hany Cornelius MD, (doctor of radiology). I, Bina Perez MD have personally reviewed and interpreted this examination/study. > Interpreting Provider: Bina Perez MD on 08/25/2023 10:18 AM Klarissa Rutledge INFLATED BALL MOLDER-STEVEDORING SUPERVISOR US ORDERABL ES documented in this encounter Visit Diagnoses Diagnosis Cirrhosis of liver with ascites, unspecified hepatic cirrhosis type (HCC) documented in this encounter Care Teams Solution Maker Relationship Specialty Start Date End Date Gregorio James MD [address] [place] [phone] PCP - General 08/11/22 05/16/24 Eric Oconnell MD Hospitalist 10/10/21 documented as of this encounter
--- OUTSIDE RECORDS SUMMARY | 2024-10-19 20:12 | XMS_ITS | Encounter Summary ---
Author Organization [facility] Health Address [address] [facility] [place] [address] Care Team Providers Care Director Dental Services Name Role Phone Eric Oconnell MD Unavailable [phone] Gregorio James MD Primary Care Provider [phone] Encounter Details Date Type Department Care Team (Latest Contact Info) Description 03/14/2024 Travel Social History Tobacco Use Types Packs/Day [...] st Contact Info) Description 11/29/2024 8:30 AM NECKTIE CENTRALIZING MACHINE OPERATOR Office Visit [facility] - Orthopedic Surgery [address] [place] [address] Toño Cabrera MD [address] [address] 01/08/2025 8:00 AM CDT Appointment [facility] [address] [place] [phone] 01/08/2025 9:00 AM CDT Office Visit [facility] - GI [address] [facility], [place] [phone] Amos Pabon MD [address] [place] [address] [place] [address] documented as of this encounter Goals Goal [...] on filedocumented in this encounter Care Teams Director Dental Services Relationship Specialty Start Date End Date Gregorio James MD [address] [place] [phone] PCP - General 08/11/22 05/16/24 Eric Oconnell MD Hospitalist 10/10/21 documented as of this encounter
--- OUTSIDE RECORDS SUMMARY | 2024-10-19 20:12 | XMS_ITS | Encounter Summary ---
Author Organization [facility] Health Address [address] [facility] [place] [address] Care Team Providers Care Air Export Operations Agent Name Role Phone Eric Oconnell MD Unavailable [phone] Teodoro Lopez Primary Care Provider Unavailabl e Reason for Visit * Reason Comments Pain Knee Encounter Details Date Type Department Care Team (Latest Contact Info) Description 05/17/2024 11:00 AM CDT Office Visit [facility] - Orthopedic Surgery [address] [place] [phone] Toño Cabrera MD [address] [facility] [address] [place], [place] [id number] Primary osteoarthritis of both knees (Primary Dx) Social History Tobacco Use Types [...] the money to buy more. Never true 02/24/20 22 Within the past 12 months, t [...] * Patient Instructions* Елена Canas RN - 05/11/2024 3:21 PM CDT Елена Canas RN BSN [employer] Joint Reconstruction Dept of Orthopedic Surgery [facility] [employer] Messaging - Dr. Toño Cabrera Email: [email or web address] documented in this encounter Progress Notes * Toño Cabrera MD - 05/17/2024 11:00 AM CDT Patient returns for repeat bilateral knee injections. Physical exam: Examination of both knees reveals intact skin without signs of infection. X-rays: None obtained Assessment: Bilateral knee osteoarthritis here for repeat injections Plan: We will proceed with repeat bilateral knee injections today. Please see the procedure notes for further details. We will see patient back as needed. documented in this encounter Procedure Notes * Toño Cabrera MD - 05/17/2024 3:13 PM CDTAssociated Order(s): PROC INJECTION JOINT (SMALL/INTERMED/MAJOR) Procedure(s): NE DRAIN/INJECT LARGE JOINT/BURSA Pre-Procedure Diagnose(s): Primary osteoarthritis of both knees Orthopaedic Surgery Procedure Note Lukas Diaz [id number] Diagnosis: Left knee pain Procedure: Injection of [...] procedure Toño Cabrera MD 05/17/2024 3:13 PM * Toño Cabrera MD - 05/17/2024 3:12 PM CDTAssociated Order(s): PROC INJECTION JOINT (SMALL/INTERMED/MAJOR) Procedure(s): NE DRAIN/INJECT LARGE JOINT/BURSA Pre-Procedure Diagnose(s): Primary osteoarthritis of both knees Orthopaedic Surgery Procedure Note Lukas Diaz [id number] Diagnosis: Right knee pain Procedure: Injection of [...] procedure Toño Cabrera MD 05/17/2024 3:12 PM documented in this encounter Plan of Treatment Upcoming Encounters Date Type Department Care Team (Late st Contact Info) Description 11/29/2024 8:30 AM DISPATCH COORDINATOR Office Visit [facility] - Orthopedic Surgery [address] [place] [address] Toño Cabrera MD [address] [facility] [address] [place] [address] 01/08/2025 8:00 AM CDT Appointment [facility] [address] [place] [phone] 01/08/2025 9:00 AM CDT Office Visit [facility] - GI [address] [facility], [place] [phone] Amos Pabon MD [address] [place] [address] [place] [address] documented as of this encounter Goals Goal [...] Procedure Name Priority Date/Time Associated Diagnosis Comments NE DRAIN/INJECT LARGE JOINT/BURSA Routine 05/17/2024 3:13 PM CDT Primary osteoarthritis of both knees NE DRAIN/INJECT LARGE JOINT/BURSA Routine 05/17/2024 3:12 PM CDT Primary osteoarthritis of both knees documented in this encounter Results * NE DRAIN/INJECT LARGE JOINT/BURSA (05/17/2024 3:13 PM CDT) Narrative Toño Cabrera MD - 05/17/2024 3:13 PM CDT Toño Cabrera MD ? 05/17/2024 ??3:13 PM Orthopaedic Surgery Procedure Note Lukas Diaz [id number] Diagnosis: Left knee pain Procedure: Injection of [...] Cabrera MD PROCEDURE/MINOR TRUDI GICAL ORDERABLES * NE DRAIN/INJECT LARGE JOINT/BURSA (05/17/2024 3:12 PM CDT) Narrative Toño Cabrera MD - 05/17/2024 3:12 PM CDT Toño Cabrera MD ? 05/17/2024 ??3:13 PM Orthopaedic Surgery Procedure Note Lukas Diaz [id number] Diagnosis: Right knee pain Procedure: Injection of [...] DATE/TIME OF EXAM: ??05/17/2024 12:11 PM, LOCATION [facility] INDICATION: M17.0: Bilateral primary osteoarthritis of [...] DATE/TIME OF EXAM: 05/17/2024 12:11 PM, LOCATION [facility] INDICATION: M17.0: Bilateral primary osteoarthritis of [...] knees- Primary Primary localized osteoarthrosis, lower leg Primary osteoarthritis of both knees Primary localized osteoarthrosis, lower leg documented in this encounter Administered Medications Inactive Administered Medications - up to 3 most recent administrations Medication Order MAR Action Action Date Dose Rate Site lidocaine (Xylocaine) 1 % injection Infiltration, ONCE, 1 dose, On Wed05/17/24 at 1200 $ Given 05/17/2024 11:56 AM CDT 5 mL Left Knee lidocaine (Xylocaine) 1 % injection Infiltration, ONCE, 1 dose, On Wed05/17/24 at 1200 $ Given 05/17/2024 11:56 AM CDT 5 mL Right Knee triamcinolone acetonide (Kenalog-40) injection 80 mg 80 mg, Intra-articular, ONCE, 1 dose, On Wed05/17/24 at 1200, Shake well before using. $ Given 05/17/2024 11:57 AM CDT 80 mg Left Knee triamcinolone acetonide (Kenalog-40) injection 80 mg 80 mg, Intra-articular, ONCE, 1 dose, On Wed05/17/24 at 1200, Shake well before using. $ Given 05/17/2024 11:57 AM CDT 80 mg Righ t Knee documented in this encounter Care Teams Air Export Operations Agent Relationship Specialty Start Date End Date Teodoro Lopez PCP - General 05/17/24 Eric Oconnell MD Hospitalist 10/10/21 documented as of this encounter
--- OUTSIDE RECORDS SUMMARY | 2024-10-19 20:12 | XMS_ITS | Encounter Summary ---
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 Office Visit [facility] - Orthopedic Surgery [address] [place] [address] Toño Cabrera MD [address] [facility] [address] [place] [address] 01/08/2025 8:00 AM CDT Appointment [facility] [address] [place] [phone] 01/08/2025 9:00 AM CDT Office Visit [facility] - GI [address] [facility], [place] [phone] Amos Pabon MD [address] [place] [address] [address] [facility] [place] [address] documented as of this encounter Goals Goal [...] on filedocumented in this encounter Care Teams Service Parts Driver Relationship Specialty Start Date End Date Gregorio James MD [address] [address] PCP - General 08/11/22 05/16/24 Eric Oconnell MD Hospitalist 10/10/21 documented as of this encounter
--- OUTSIDE RECORDS SUMMARY | 2024-10-19 20:12 | XMS_ITS | Clinical Summary ---
Author Organization [facility] Address [address] [place] [address] Care Team Providers Care Lighting Engineer Name Role Phone Eric Oconnell MD Unavailable [phone] Teodoro Lopez Primary Care Provider Unavailabl e Source Comments [facility],non-owned Affiliates and Associated Physician Practices is amultiple site organization consisting of ambulatory clinics and hospital sitesin [place], [place], [place] and [place]. This disclosure is being madepursuant to the Care Everywhere program and may not contain all information available regarding this patient. Last updated 18.[facility] Allergies Active Allergy Reactions Criticality Noted Date [...] affected area as needed Active HYDROcodone-acetamin ophen (Clinton) 5-325 MG tablet Take 1 (one) tablet [...] Elevated liver enzymes 12/18/2021 Hepatic cirrhosis 10/01/2021 Encounters Date Type Department Care Team Description 09/01/2024 Travel from Last 3 Months Social History Tobacco Use Types Packs/Day Years [...] Mass Index 33.28 03/28/2024 6:10 PM CDT Plan of Treatment Upcoming Encounters Date Type Department Care Team (Late st Contact Info) Description 11/29/2024 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 Office Visit [facility] - Orthopedic Surgery [address] [facility] [place] [address] Toño Cabrera MD [address] [facility] [address] [place] [address] 01/08/2025 8:00 AM CDT Appointment [facility] [address] [place] [phone] 01/08/2025 9:00 AM CDT Office Visit [facility] - GI [address] [facility], [place] [phone] Amos Pabon MD [address] [place] [address] [address] [facility] [place] [address] Health Maintenance Due Date Last Done Comments LIPID TESTING 1984 MEDICARE AWV ? 12 MONTHS 1984 PNEUMOCOCCAL VACCINE (1 of 2 - PCV) 1990 HIV SCREENING 1999 DTAP/TDAP/TD VACCINES (1 - Tdap) 2003 HEPATITIS B VACCINE (1 of 3 - 19+ 3-dose series) 2003 COVID-19 VACCINE (4 - 2023- season) 2024 01/06/2024, 08/30/2023, 08/14/2021 INFLUENZA VACCINE (#1) 2024 11/30/2023 SCREENING FOR DIABETES 03/29/2027 , 03/28/2024, 02/16/2022, Additional history exists ZOSTER VACCINE (1 of 2) 2034 HEPATITIS C SCREENING Completed 10/01/2021 DEPRESSION SCREENING Completed 11/17/2023 HIB VACCINE Aged Out No longer eligi ble based on patient's age to complete this topic HPV VACCINE Aged Out No longer eligi ble based on patient's age to complete this topic MENINGOCOCCAL VACCINE Aged Out No isauro femi eligible based on patient's age to complete this topic Goals Goal Patient Goal Type Associated Problems [...] HEPATITIS C ANTIBODY Routine 10/01/2021 11:38 AM UTILITY BAG ASSEMBLER Cirrhosis of liver with ascites, unspecified hepatic cirrhosis type (HCC) from Last 3 Months or Most Recently Relevant to Health Maintenance Results * (ABNORMAL) COMPREHENSIVE METABOLIC PANEL (03/29/2024 4:30 AM CDT) [facility] BUN 10 7 - 26 mg/dL 03/29/2024 5:09 AM CDT [facility] Creatinine 0.84 0.71 - 1.16 mg/dL 03/29/2024 5:09 AM [facility] Sodium 135(L) 136 - 145 mmol/L 03/29/2024 5:09 AM [facility] Potassium 3.8 3.5 - 4.5 mmol/L 03/29/2024 5:09 AM [facility] Chloride 105 98 - 107 mmol/L 03/29/2024 5:09 AM [facility] CO2 22 22 - 29 mmol/L 03/29/2024 5:09 AM [facility] Glucose 87 70 - 115 mg/dL 03/29/2024 5:09 AM [facility] Calcium 9.6 8.4 - 10.2 mg/dL 03/29/2024 5:09 AM [facility] Protein Total 7.6 6.0 - 8.3 g/dL 03/29/2024 5:09 AM [facility] Albumin 3.8 3.4 - 5.0 g/dL 03/29/2024 5:09 AM [facility] Bilirubin Total 0.9 0.2 - 1.2 mg/dL 03/29/2024 5:09 AM [facility] Alkaline Phosphatase 81 40 - 150 U/L 03/29/2024 5:09 AM [facility] ALT 20 5 - 55 U/L 03/29/2024 5:09 AM [facility] AST 17 5 - 34 U/L 03/29/2024 5:09 AM [facility] Anion Gap 8 6 - 16 03/29/2024 5:09 AM [facility] BUN/Creatinine Ratio 12 7 - 23 03/29/2024 5:09 AM [facility] Osmolality Calculated 278 275 - 295 mOsm/kg 03/29/2024 5:09 AM [facility] Albumin/Globulin Ratio 1.0(L) 1.1 - 2.3 03/29/2024 5:09 AM [facility] eGFR by CKD-EPI >90 >=90 mL/min/1.7 3 m2 03/29/2024 5:09 AM [facility] Blood BLOOD SPECIMEN / Unknown Lab Venipuncture / Unknown 03/29/2024 4:30 AM CDT 03/29/2024 4:41 AM CDT Isaak Ibrahim MD LAB - CHEMISTRY [facility] [address] [place] [address], [place] [phone] * HEPATITIS C ANTIBODY (10/01/2021 11:38 AM UTILITY BAG ASSEMBLER) Hepatitis C Antibody Non-react young Non-reac tive 10/01/2021 1:14 PM UTILITY BAG ASSEMBLER [facility] Comment:Hepatitis C Antibody screen indicates no serologic evidence of past or current infection with Hepatitis C Virus. Patients with unexplained liver disease who are immunocompromised or suspected of having acute Hepatitis C infection may benefit from Nucleic Acid Test (MARIBELL) for Hepatitis C Viral RNA to confirm Hepatitis C status. Blood BLOOD SPECIMEN / Unknown Lab Venipuncture / Unknown 10/01/2021 11:38 AM UTILITY BAG ASSEMBLER 10/01/2021 11:46 AM UTILITY BAG ASSEMBLER Amos Pabon MD LAB - CHEMISTRY KURT ZARAGOZA Performing Organization Address City/[facility]/ZIP Co de Phone Number [place] [id number] [place] [address], [place] [phone] from Last 3 Months or Most Recently Relevant to Health Maintenance Advance Directives * Full Code (Latest Code Status on File) Date Activated Date Inactivated Comments 03/29/2024 12:13 AM 03/29/2024 11:54 PM Care Teams Lighting Engineer Relationship Specialty Start Date End Date Teodoro Lopez PCP - General 05/17/24 Eric Oconnell MD Hospitalist 10/10/21
--- OUTSIDE RECORDS SUMMARY | 2024-10-19 20:13 | XMS_ITS | Encounter Summary ---
Author Organization [facility] Address [address] [place] [address] Care Team Providers Care Corporate Controller Name Role Phone Eric Oconnell MD Unavailable [phone] Raya Carty PA-C Primary Care Provider Reason for Visit * Auth/Cert Specialty Diagnoses / Procedures Referred By Rod young Referred To Contact Diagnoses Chronic gastric ulcer without hemorrhage and without perforation Procedures SC ED EGD FLEX TRANSORAL DX SC EGD FLEX TRANSORAL W BX SNGL OR MULT ESOPHAGOGASTRODUODENOSCOPY (EGD) DIAGNOSTIC Referral ID Status Reason Start Date Expiration Date Visits Re quested Visits Authorized [id number] 1 1 Encounter Details Date Type Department Care Team (Latest Contact Info) Description 06/18/2022 8:13 AM CDT - 06/18/2022 10:51 AM CDT Hospital Encounter [facility] [address] [place] [address] Amos Pabon MD [address] [facility] 2L [place] [address] Gastroenterology Discharge Disposition: Other Facility Not Defined Elsewhere Social History Tobacco Use Types Packs/Day Years Used Date Smoking Tobacco: Every Day Cigarettes Smokeless Tobacco: Never Comments:1 cigarettes a day Alcohol Use Standard Drinks/Week Comments Not Currently [...] Sign Reading Time Taken Comments Blood Pressure 109/78 06/18/2022 10:15 AM CDT Pulse 81 06/18/2022 10:15 AM CDT Temperature 36.3 ??C (97.3 ??F) 06/18/2022 9:40 AM CD T Respiratory Rate 16 06/18/2022 10:15 AM CDT Oxygen Saturation 97% 06/18/2022 10:15 AM CDT Inhaled Oxygen Concentration - - Weight 79.1 kg (174 lb 6.4 oz) 06/18/2022 8:21 A M CDT Height 170.2 cm (5' 7 ) 06/18/2022 8:21 AM CDT Body Mass Index 27.31 06/18/2022 8:21 AM CDT documented in this encounter Functional [...] 06/18/2022 documented as of this encounter Discharge Instructions * Discharge Instructions* Regla Garcia, ALFREDO - 06/18/2022 10:00 AM CDT Images from the original note were not included. Upper Endoscopy WHAT YOU NEED TO KNOW: An upper endoscopy is also called an upper gastrointestinal (GI) endoscopy, or an esophagogastroduodenoscopy (EGD). You may feel bloated, gassy, or have some abdominal discomfort after your procedure. Your throat may be sore for 24 to 36 hours. You may burp or pass gas from air that is still insideyour body. DISCHARGE INSTRUCTIONS: Call 911 if: You have sudden chest pain or trouble breathing. Seek care immediately if: You feel dizzy or faint. You have trouble swallowing. You have severe throat pain. Your bowel movements are very dark or black. Your abdomen is hard and firm and you have severe pain. You vomit blood. Contact your healthcare provider if: You feel full or bloated and cannot burp or pass gas. You have not had a bowel movement for 3 days after your procedure. You have neck pain. You have a fever or chills. You have nausea or are vomiting. You have a rash or hives. You have questions or concerns about your endoscopy. Relieve a sore throat: Suck on throat lozenges or crushed ice. Gargle with a small amount of warm salt water. Mix 1 teaspoon of salt and 1 cup of warm water to make salt water. Relieve gas and discomfort from bloating: Lie on your right side with a heating pad on your abdomen. Take short walks to help pass gas. Eat small meals until bloating is relieved. Rest after your procedure: Do not drive or make important decisions until the day after your procedure. Return to your normal activity as directed. You can usually return to work the day after your procedure. Follow up with your healthcare provider as directed: Write down your questions so you remember to ask them during your visits. ?? Copyright [employer] 2020 Information is for End User's use only and may not be sold, redistributed or otherwise used for commercial purposes. All illustrations and images included in CareNotes?? are the copyrighted property of [email or web address] or [employer] The above information is an paraprofessional aide only. It is not intended as medical advice for individual conditions or treatments. Talk to your doctor, nurse or pharmacist before following any medical regimen to see if it is safe and effective for you. documented in this encounter Medications at Time of Discharge Medication Sig Dispensed Refills Start Date End Date baclofen (LIORESAL) 10 MG tablet Take 2 (two) tablets by mouth 2 times daily May cause drowsiness. busPIRone (BUSPAR) 5 MG tablet Take 1 (one) tablet by mouth 2 times daily ferrous sulfate 325 (65 FE) MG tablet Take 1 (one) tablet by mouth once daily folic acid (FOLVITE) 1 MG tablet Take 1 (one) tablet by mouth once daily propranolol (INDERAL) 10 MG tablet Take 1 (one) tablet by mouth 2 times daily buPROPion SR 12hr (WELLBUTRIN-SR) 100 MG tablet Take 100 mg by mouth once daily 02/19/2023 citalopram (CELEXA) 20 MG tablet Take 1 (one) tablet by mouth once daily 06/29/2023 furosemide (LASIX) 20 MG tablet Take 1 (one) tablet by mouth once daily 02/22/2022 06/29/2023 HM LIDOCAINE PATCH EX 2022 lactulose (CHRONULAC) 10 GM/15ML solution Take 5 mL by mouth 3 times daily 06/29/2023 Melatonin 3 MG 06/29/2023 mirtazapine (REMERON) 30 MG tablet Take 30 mg by mouth at bedtime 02/19/2023 ondansetron, disintegrating, (ZOFRAN ODT) 4 MG tablet Take 4 mg by mouth every 8 hours as needed for Nausea/Vomiting Allow tablet to dissolve on the tongue 02/19/2023 pantoprazole EC (PROTONIX) 40 MG tablet Take 1 (one) tablet by mouth 2 times daily 02/19/2023 pregabalin (LYRICA) 75 MG capsule Take 75 mg by mouth 2 times daily 02/19/2023 ramelteon (ROZEREM) 8 MG tablet Take 8 mg by mouth at bedtime 02/19/2023 rifAXIMin (Xifaxan) 550 MG tablet Take 1 (one) tablet by mouth 2 times daily 60 tablet 11 06/11/2022 02/25/2024 spironolactone (ALDACTONE) 50 MG tablet Take 1 (one) tablet by mouth once daily 06/29/2023 THIAMINE HCL PO Take 100 mg by mouth 02/2023 traMADol (ULTRAM) 50 MG tablet Take 1 (one) tablet by mouth every 6 hours as needed 28 tablet 12/19/2021 11/17/2023 traZODone (DESYREL) 50 MG tablet Take 1 (one) tablet by mouth at bedtime 02/19/2023 documented as of this encounter H&P Notes * Amos Pabon MD - 06/18/2022 8:58 AM CDT ENDOSCOPY PRE-PROCEDURE MEDICAL HISTORY & PHYSICAL Today's Date: 06/18/2022 8:58 AM Lukas Ramirez Diaz 36 year old male Date of Service: 06/18/2022 BP 122/86 Pulse 76 Temp 98 ??F (36.7 ??C) (Oral) Resp 16 Ht 1.702 m (5' 7 ) Wt 79.1 kg (174 lb 6.4 oz) SpO2 95% History: Past Medical History: Diagnosis Date ??? Anxiety disorder ??? Depression ??? Fracture neck of left femur ??? Hypertension ??? Insomnia Allergies Allergen Reactions ??? Peanut-Derived Anaphylaxis ??? Mushroom Extract Complex Other Chest tightness ??? Shellfish Allergy Other Chest tightness Medications Prior to Admission Medication Sig Dispense Refill ??? baclofen (LIORESAL) 10 MG tablet Take 20 mg by mouth 2 times daily May cause drowsiness. ??? buPROPion SR 12hr (WELLBUTRIN-SR) 100 MG tablet Take 100 mg by mouth once daily ??? busPIRone (BUSPAR) 5 MG tablet Take 10 mg by mouth 2 times daily ??? citalopram (CELEXA) 20 MG tablet Take 20 mg by mouth once daily (Patient not taking: Reported on 06/18/2022) ??? ferrous sulfate 325 (65 FE) MG tablet Take 325 mg by mouth once daily ??? folic acid (FOLVITE) 1 MG tablet Take 1 mg by mouth once daily ??? furosemide (LASIX) 20 MG tablet Take 1 (one) tablet by mouth once daily ??? HM LIDOCAINE PATCH EX (Patient not taking: Reported on 06/18/2022) ??? lactulose (CHRONULAC) 10 GM/15ML solution Take 5 mL by mouth 3 times daily ??? Melatonin 3 MG ??? mirtazapine (REMERON) 30 MG tablet Take 30 mg by mouth at bedtime (Patient not taking: Reportedon 06/18/2022) ??? ondansetron, disintegrating, (ZOFRAN ODT) 4 MG tablet Take 4 mg by mouth every 8 hours as needed for Nausea/Vomiting Allow tablet to dissolve on the tongue (Patient not taking: Reported on 06/18/2022) ??? pantoprazole EC (PROTONIX) 40 MG tablet Take 40 mg by mouth 2 times daily ??? pregabalin (LYRICA) 75 MG capsule Take 75 mg by mouth 2 times daily (Patient not taking: Reported on 06/18/2022) ??? propranolol (INDERAL) 10 MG tablet Take 10 mg by mouth 2 times daily ??? ramelteon (ROZEREM) 8 MG tablet Take 8 mg by mouth at bedtime (Patient not taking: Reported on 06/18/2022) ??? rifAXIMin (Xifaxan) 550 MG tablet Take 1 (one) tablet by mouth 2 times daily (Patient not taking: Reported on 06/18/2022) 60 tablet 11 ??? spironolactone (ALDACTONE) 50 MG tablet Take 50 mg by mouth once daily ??? THIAMINE HCL PO Take 100 mg by mouth ??? traMADol (ULTRAM) 50 MG tablet Take 1 (one) tablet by mouth every 6 hours as needed (Patient not taking: Reported on 06/18/2022) 28 tablet 0 ??? traZODone (DESYREL) 50 MG tablet Take 50 mg by mouth at bedtime (Patient not taking: Reported on 06/18/2022) No current facility-administered medications for this encounter. Recent Labs Component Name 02/16/22 1426 01/05/22 0000 12/25/21 0000 12/19/21 0153 12/17/21 2258 WBC 9.7 7.1 8.9 7.5 10.1 RBC 4.61 - - 4.23* 3.99* HGB 14.6 14.0 13.4 13.0 12.3 HCT 43.5 41.6 40.9 39.1 35.2 MCV 94.4 - - 92.4 88.2 MCHC 33.6 - - 33.2 34.9 PLTCOUNT 184 - - 198 192 NEUTPCT - - - - 65.3 NEUTABS - 4.40 5.50 - 6.6 Recent Labs Component Name 02/16/22 1426 01/05/22 0000 12/25/21 0000 12/19/21 0135 12/17/21 2257 11/14/21 0000 SODIUM - 138 135 - - 136 POTASSIUM 3.7 4.0 4.3 3.9 4.4 4.0 CHLORIDE - 104 98 - - 99 CO2 31* 23 26 23 25 27 BUN 9 10 10 9 10 14 CREATININE 0.76 - - 0.56* 0.44* - GLUCOSE 70 96 71 95 90 89 CALCIUM 10.4* 9.0 8.6 9.0 8.8 9.5 ALT 20 27 45 67* 74* 22 ALKPHOS 130 155 207 180* 179* 98 AST 24 25 37 91* 127* 33 TBIL - 0.4 0.3 - - 0.5 TPROT - 7.6 7.6 - - 7.7 EGFR >90 94 139 >90 >90 81 EGFRAFR - 114 168 - - 98 Recent Labs Component Name 02/16/22 1426 01/05/22 0000 12/25/21 0000 INR 1.0 1.0 1.1 XR FEMUR LEFT 2VW Result Date: 01/07/2022 IMPRESSION: Femoral neck fracture, unchanged in alignment. This report was electronically signed Shaka MCDUFFIE MD on 01/07/2022 10:46 AM . XR FEMUR LEFT 2VW Result Date: 12/18/2021 FINDINGS/IMPRESSION: Comminuted moderately displaced subcapital fracture of the left femoral neck. There is 1.3 cm interposition of the femoral head and the femoral shaft at the fracture line. The femoral head appears well positioned within its respective acetabula. Soft tissue swelling is noted. Dictated by Stanley Joyce MD (residential air sealing technician). I, Dr. ALO HEMPHILL MD, FRCR havepersonally reviewed and interpreted this examination/study. This report was electronically signed by ALO HEMPHILL MD, FRCR on 12/18/2021 10:34 AM . US ABDOMEN LIMITED Result Date: 10/21/2021 IMPRESSION: 1.Hepatic cirrhosis with sequela of portal hypertension (recanalization of the umbilical vein) without discrete hepatic lesion. 2.Splenomegaly. 3.No evidence of cholelithiasis or acute cholecystitis. Dictated by Lawrence Meyers D.O. (Residential Air Sealing Technician) Dr. CLIFFORD Anton M.D. have pers onally reviewed and interpreted this examination/study. This report was electronically signed by CLIFFORD COTA M.D. on 10/21/2021 11:[address] HIP LEFT WO CONTRAST Result Date: 12/18/2021 Impression: Displaced left femoral neck fracture, age-indeterminate. Cannot exclude a small posterior-superior acetabular wall fracture. See comments above. Report drafted by Shaun Marie (resident) Sloane, Dr. JANAE MCDUFFIE MD have personally reviewed and interpreted this examination/study. This report was electronically signed by JANAE MCDUFFIE MD on 12/18/2021 8:00 AM . XR PELVIS W LEFT HIP 2VW Result Date: 12/18/2021 IMPRESSION: Superolaterally displaced fracture of the left femoral neck. Report dictated by Shama Landry M.D. (residential air sealing technician). IDr. ALO MD, [facility] have personally reviewed and interpreted this examination/study. This report was electronically signed by ALO HEMPHILL MD, [facility] on 12/18/2021 10:05 AM . Physicial Exam: General appearance: alert, cooperative, no distress Heart: regular rhythm, normal S1 and S2, Lungs: breath sounds normal and symmetric; no rales or wheezes Abdomen: soft without mass, non-tender, with normal bowel sounds Extremities: no clubbing, cyanosis or edema ASA Evaluation and Anesthesia Plan: Anesthesia administered per Anesthesia Department Indication(s) for Procedure: Other: post EVL Procedure Planned: EGD Amos Pabon MD * Devante James MD - 06/18/2022 8:58 AM CDT PRE-PROCEDURE HISTORY & PHYSICAL NOTE 06/18/2022 8:58 AM Patient: Lukas Diaz, date of 1985 Procedure(s) planned: EGD Indication(s): Holt's Follow-up and Other: Gastric ulcer follow up Mallampati: 2 ASA score: 3 History: Patient Active Problem List Diagnosis Date Noted ??? Vitamin D deficiency 12/19/2021 Priority: Not Prioritized ??? Nicotine abuse 12/19/2021 Priority: Not Prioritized ??? Chronic left hip pain 12/18/2021 Priority: Not Prioritized ??? Tachycardia 12/18/2021 Priority: Not Prioritized ??? Closed fracture of left hip 12/18/2021 Priority: Not Prioritized ??? Elevated liver enzymes 12/18/2021 Priority: Not Prioritized ??? Hepatic cirrhosis 10/01/2021 Priority: Not Prioritized Past Surgical History: Procedure Laterality Date ??? ENDOSCOPY, UPPER N/A 03/05/2022 N/A; EGD Allergies Allergen Reactions ??? Peanut-Derived Anaphylaxis ??? Mushroom Extract Complex Other Chest tightness ??? Shellfish Allergy Other Chest tightness No family history on file. No current facility-administered medications on file prior to encounter. Current Outpatient Medications on File Prior to Encounter Medication Sig Dispense Refill ??? baclofen (LIORESAL) 10 MG tablet Take 20 mg by mouth 2 times daily May cause drowsiness. ??? buPROPion SR 12hr (WELLBUTRIN-SR) 100 MG tablet Take 100 mg by mouth once daily ??? busPIRone (BUSPAR) 5 MG tablet Take 10 mg by mouth 2 times daily ??? citalopram (CELEXA) 20 MG tablet Take 20 mg by mouth once daily (Patient not taking: Reported on 06/18/2022) ??? ferrous sulfate 325 (65 FE) MG tablet Take 325 mg by mouth once daily ??? folic acid (FOLVITE) 1 MG tablet Take 1 mg by mouth once daily ??? furosemide (LASIX) 20 MG tablet Take 1 (one) tablet by mouth once daily ??? HM LIDOCAINE PATCH EX (Patient not taking: Reported on 06/18/2022) ??? lactulose (CHRONULAC) 10 GM/15ML solution Take 5 mL by mouth 3 times daily ??? Melatonin 3 MG ??? mirtazapine (REMERON) 30 MG tablet Take 30 mg by mouth at bedtime (Patient not taking: Reportedon 06/18/2022) ??? ondansetron, disintegrating, (ZOFRAN ODT) 4 MG tablet Take 4 mg by mouth every 8 hours as needed for Nausea/Vomiting Allow tablet to dissolve on the tongue (Patient not taking: Reported on 06/18/2022) ??? pantoprazole EC (PROTONIX) 40 MG tablet Take 40 mg by mouth 2 times daily ??? pregabalin (LYRICA) 75 MG capsule Take 75 mg by mouth 2 times daily (Patient not taking: Reported on 06/18/2022) ??? propranolol (INDERAL) 10 MG tablet Take 10 mg by mouth 2 times daily ??? ramelteon (ROZEREM) 8 MG tablet Take 8 mg by mouth at bedtime (Patient not taking: Reported on 06/18/2022) ??? spironolactone (ALDACTONE) 50 MG tablet Take 50 mg by mouth once daily ??? THIAMINE HCL PO Take 100 mg by mouth ??? traMADol (ULTRAM) 50 MG tablet Take 1 (one) tablet by mouth every 6 hours as needed (Patient not taking: Reported on 06/18/2022) 28 tablet 0 ??? traZODone (DESYREL) 50 MG tablet Take 50 mg by mouth at bedtime (Patient not taking: Reported on 06/18/2022) No current facility-administered medications for this encounter. Review of systems: Constitutional: negative for fevers, chills, fatigue and malaise, no recent weight loss Respiratory: denies shortness of breath Cardiovascular: denies chest pain Gastrointestinal: negative for nausea, vomiting, diarrhea, abdominal pain Physical Exam: BP 122/86 Pulse 76 Temp 98 ??F (36.7 ??C) (Oral) Resp 16 Ht 1.702 m (5' 7 ) Wt 79.1 kg (174 lb 6.4 oz) SpO2 95% General appearance: alert, oriented, pleasant, in NAD, no asterexis Skin: Skin color, texture, turgor normal, no rashes, no spider angiomas Eyes: Anicteric sclera Lungs: CTAB, no wheezing or rhonchi Heart: RRR Abdomen: Soft, non-tender, non distended. Bowel sounds normal. No masses, organomegaly Extremities: No LE edema, or skin discoloration. Good capillary refill. Lab Results Component Value Date/Time HGB 14.6 02/16/2022 02:26 PM HGB 14.0 01/05/2022 12:00 AM PLT 250 01/05/2022 12:00 AM INR 1.0 02/16/2022 02:26 PM INR 1.0 01/05/2022 12:00 AM CREATININE 0.76 02/16/2022 02:26 PM Sedation Plan: Monitored Anesthesia Care (MAC) by the anesthesia team. Procedure Plan: Based on the above assessment, we will perform the procedures indicated above. I have discussed the plan, risks, benefits and alternatives with the patient or guardian. When assessment above was not obtained immediately before the procedure, I have reassessed this patient and there are no changes. In addition to the standard procedural informed consent, the specific risks related to COVID-19 were also discussed, including the possibility of an infection being present with a negative test, the risk of era COVID-19, and the known implications of this infection. See consent form. 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 Office Visit [facility] - Orthopedic Surgery [address] [place] [address] Toño Cabrera MD [address] [facility] [address] [place] [address] 01/08/2025 8:00 AM CDT Appointment [facility] [address] [place] [address] 01/08/2025 9:00 AM CDT Office Visit [facility] - [facility] [address] [facility] [place] [id number] Amos Pabon MD [address] [place] [address] DIV [place] [address] documented as of this encounter Goals Goal [...] Procedure Name Priority Date/Time Associated Diagnosis Comments SC ED EGD FLEX TRANSORAL DX 06/18/2022 9:18 AM CDT Chronic gastric ulcer without hemorrhage and without perforation Special Needs Message Received: 3 days ago Amos Pabon MD Johnson, Sarah N. RN Repeat EGD in 3 months EGD Routine 06/18/2022 9:04 AM CDT documented in this encounter Results * EGD (06/18/2022 9:04 AM CDT) Report [...] Procedure Code(s): ? --- Professional --- ? 05100, Esophagogastroduode noscopy, flexible, transoral; diagnostic, ? including collection of specimen(s) by brushing or washing, when ? performed (separate procedure) Diagnosis Code(s): ?--- Professional --- ?K76.6, Portal hypertension ?K22.70, Holt's esophagus without dysplasia CPT copyright 2019 [employer]. All rights reserved. The codes documented in this report are preliminary and upon health information coder review may be revised to meet current compliance requirements. Amos Pabon, 06/18/2022 9:47:50 AM Note Initiated On: 06/18/2022 9:04 AM Number of Addenda: 0 ? [facility] ? 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 Holt's esophagus Acute gastric ulcer without hemorrhage or perforation Acute gastric ulcer without mention of hemorrhage, perforation, or obstruction Portal hypertension (HCC) Portal hypertension Other diseases of stomach and duodenum documented in this encounter Administered Medications Inactive Administered Medications - up to 3 most recent administrations Medication Order MAR Action Action Date Dose Rate Site 0.9% NaCl injection 3 mL 3 mL, Intracatheter, PRE-PROCEDURE MULTIPLE, Starting on Wed06/18/22 at 0909, Until Wed06/18/22 at 1155, For Saline Lock flushes if one is inserted for Bronchoscopy/Endoscopy procedure., Pre-procedure (GI) documented in this encounter Active and Recently Administered Medications Times are shown in CDT. Scheduled Medication Order 06/16/2022 06/17/2022 06/18/2022 0.9% NaCl injection 3 mL 3 mL, Intracatheter, PRE-PROCEDURE MULTIPLE, Starting on Oly 06/18/22 at 0909, Until Oly 06/18/22 at 1155, For Saline Lock flushes if one is inserted for Bronchoscopy/Endoscopy procedure., Pre-procedure (GI) documented in this encounter Care Teams Corporate Controller Relationship Specialty Start Date End Date Raya Carty PA-C [address] [place] [phone] PCP - General 06/09/22 07/05/22 Eric Oconnell MD Hospitalist 10/10/21 documented as of this encounter
--- OUTSIDE RECORDS SUMMARY | 2024-10-19 20:13 | XMS_ITS | Encounter Summary ---
Author Organization [facility] Address [address] [place] [address] Care Team Providers Care Specimen Technician Name Role Phone Major Kraft MD Primary Care Provider Eric Oconnell MD Unavailable + [phone] Reason for Visit * Reason Comments Cirrhosis Encounter Details Date Type Department Care Team (Late st Contact Info) Description 02/16/2022 1:00 PM CDT Office Visit [facility] - GI [address] [facility] [place] [phone] Major Kraft MD [address] [place] [phone] Amos Pabon MD [address] [place] [address] [place] [address] Cirrhosis of liver with ascites, unspecified hepatic cirrhosis type (HCC) (Primary Dx); Alcoholic cirrhosis of liver without ascites (HCC); Liver failure without hepatic coma, unspecified chronicity (HCC); Depression, unspecified depression type; Alcohol use, unspecified with other alcohol-induced disorder (HCC) Social History Tobacco Use Types Packs/Day [...] Sign Reading Time Taken Comments Blood Pressure 128/86 02/16/2022 12:52 PM CDT Pulse 74 02/16/2022 12:52 PM CDT Temperature 36.8 ??C (98.3 ??F) 02/16/2022 12:52 PM C DT Respiratory Rate - - Oxygen Saturation - - Inhaled Oxygen Concentration - - Weight 78.3 kg (172 lb 9.6 oz) 02/16/2022 12:52 PM CDT Height 170.2 cm (5' 7 ) 02/16/2022 12:52 PM CDT Body Mass Index 27.03 02/16/2022 12:52 PM CDT documented in this encounter Functional Status Functional Status Response Date of Assess ment Is person deaf or have serious hearing difficult y? No 12/18/2021 Is person blind or have serious difficulty seein g? No 12/18/2021 Does person have serious dif ficulty walking/climbing stairs? Yes 12/18/2021 Does person have difficulty dressing/bathing? Ye s 12/18/2021 Does person have difficulty doing errands alone? Yes 12/18/2021 Cognitive Status Response Date of Assessm ent Does person have difficulty concentrating/remembering/making decisions? No 12/18/2021 documented as of this encounter Progress Notes * Amos Pabon MD - 02/16/2022 1:05 PM CDT Hepatology Clinic Note Lukas Diaz 36 year old male was seen in clinic for follow up. Since the last clinic visit patient has had left neck of the femur fracture and is following with orthopedic surgery and planning surgery. He has been abstinent from alcohol use. He has been staying at a nursing facility. Last labs showed normalization of liver dysfunction and hemoglobin. Platelets are normal. He has noticed intermittent episodes of mild confusion. He is on multiple psychotropic medications for sleep issues and depression. He is taking propranolol. He is not allowed to walk, however is able to stand. Today, patient mentioned no episodes of hematemesis, hematochezia or melanotic stools. Review of Systems - Negative except intermittent confusion and left hip pain. Complete 10 point ROS was reviewed with the patient and was otherwise negative. Positives are mentioned above. Assessment: #1 Decompensated alcohol associated liver cirrhosis, meld score 6 #2 Alcohol use disorder, prior known liver disease and none since April 2021 #3 Ascites/leg edema, resolved with diuretics #4 Hepatic encephalopathy, mild symptoms while on lactulose and rifaximin, also takes multiple psychotropic medications #5 Left hip fracture, being scheduled for hip surgery #6 Episodes of possibly GI bleeding from varices s/p band ligation and on propranolol no follow-up EGD since last banding #7 Anemia, resolved #8 Depression, on multiple medications Recommendations: Fortunately liver function has improved. He has only mild ongoing decompensating events with encephalopathy. Fluid overload is well controlled with diuretics. We will update his labs and titrate downthe diuretics. He will continue lactulose and rifaximin. He needs an EGD updated to follow-up post variceal band ligation. He will continue propanolol. His psychotropic medications need to be reevaluated. He is low risk of hepatic decompensation and mortality for hip surgery. Meld score 6, child Buck B7. Will recommend avoiding excessive sedation, prolonged anesthesia, excessive crystalloid or blood product transfusions perioperatively. Will recommend continuing propranolol perioperatively. Keep bowel regimen, and use laxative and lactulose. Would be okay to stay on chemical DVT prophylaxis for surgery. Contact hepatology service in case of any unanticipated medical needs after surgery. Orders Placed This Encounter ??? US ABDOMEN LIMITED ??? ALPHA FETOPROTEIN BLOOD TUMOR MARKER ??? CBC W/O DIFFERENTIAL ??? COMPREHENSIVE METABOLIC PANEL ??? PT-INR ??? ALPHA FETOPROTEIN BLOOD TUMOR MARKER ??? CBC W/O DIFFERENTIAL ??? PT-INR [facility] ??? BASIC METABOLIC PANEL (CALCIUM TOTAL) ??? HEPATIC FUNCTION PANEL ??? EGD Please schedule an appointment to be seen in 6 month(s). Follow-up with primary care physician for age-appropriate screening and vaccination. - Medication Sig ??? baclofen (LIORESAL) 10 MG tablet Take 20 mg by mouth 2 times daily May cause drowsiness. ??? busPIRone (BUSPAR) 5 MG tablet Take 10 mg by mouth 2 times daily ??? calcium 500 MG tablet Take 1 (one) tablet by mouth 2 times daily with morning and evening meal for 90 days ??? citalopram (CELEXA) 10 MG tablet Take 10 mg by mouth once daily ??? citalopram (CELEXA) 20 MG tablet Take 20 mg by mouth once daily ??? folic acid (FOLVITE) 1 MG tablet Take 1 mg by mouth once daily ??? furosemide (LASIX) 20 MG tablet Take 60 mg by mouth once daily ??? HM LIDOCAINE PATCH EX ??? lactulose (CHRONULAC) 10 GM/15ML solution Take 5 mL by mouth 3 times daily ??? Melatonin 3 MG ??? mirtazapine (REMERON) 30 MG tablet Take 30 mg by mouth at bedtime ??? multivitamin daily tablet Take 1 (one) tablet by mouth once daily for 90 days ??? pantoprazole EC (PROTONIX) 40 MG tablet Take 40 mg by mouth 2 times daily ??? pregabalin (LYRICA) 75 MG capsule Take 75 mg by mouth 2 times daily ??? propranolol (INDERAL) 10 MG tablet Take 10 mg by mouth 2 times daily ??? ramelteon (ROZEREM) 8 MG tablet Take 8 mg by mouth at bedtime ??? rifAXIMin (XIFAXAN) 550 MG tablet Take 1 (one) tablet by mouth 2 times daily ??? spironolactone (ALDACTONE) 100 MG tablet Take 100 mg by mouth once daily ??? spironolactone (ALDACTONE) 50 MG tablet Take 50 mg by mouth once daily ??? temazepam (RESTORIL) 7.5 MG capsule Take 7.5 mg by mouth at bedtime ??? THIAMINE HCL PO Take 100 mg by mouth ??? traMADol (ULTRAM) 50 MG tablet Take 1 (one) tablet by mouth every 6 hours as needed ??? vitamin D, ergocalciferol, (DRISDOL) 1.25 MG (80648 UT) capsule Take 1 (one) capsule by mouth every 7 days for 90 days Recent Labs Component Name 01/05/22 0000 12/25/21 0000 12/19/21 0153 12/17/21225711/14/21 0000 10/01/21 1138 WBC 7.1 8.9 7.5 10.1 - 4.3 HGB 14.0 13.4 13.0 12.3 - 9.8* HCT 41.6 40.9 39.1 35.2 - 31.0* PLTCOUNT - - 198 192 - 209 - = values in this interval not displayed. Recent Labs Component Name 01/05/22 0000 12/25/21 0000 12/19/21 0135 12/17/21225611/14/21 0000 10/01/21 1138 BUN 10 10 9 10 - 10 CREATININE - - 0.56* 0.44* - 0.67* NA - - 134* 131* - 136 POTASSIUM 4.0 4.3 3.9 4.4 - 3.8 CL - - 100 94* - 105 CO2 23 26 23 25 - 23 CALCIUM 9.0 8.6 9.0 8.8 - 9.1 PROT - - 7.6 8.1 - 8.6* ALB 3.2 3.0 2.7* 3.0* - 3.3* TBILI - - 1.0 1.3* - 0.6 ALKPHOS 155 207 180* 179* - 134 ALT 27 45 67* 74* - 24 AST 25 37 91* 127* - 34 ANIONGAP - - 15 16 - 12 BCR - - 16 23 - 15 OSMOLALITY - - 276 271 - 282 AGRATIO - - 0.6* 0.6* - 0.6* EGFR 94 139 >90 >90 - >90 - = values in this interval not displayed. Recent Labs Component Name 01/05/22 0000 12/25/21 0000 12/17/21 2311 INR 1.0 1.1 1.2 MELD-Na score: 6 at 01/05/2022 12:00 AM MELD score: 6 at 01/05/2022 12:00 AM Calculated from: Serum Creatinine: 0.7 mg/dl (Using min of 1 mg/dl) at 01/05/2022 12:00 AM Serum Sodium: 138 mmol/L (Using max of 137 mmol/L) at 01/05/2022 12:00 AM Total Bilirubin: 0.4 mg/dL (Using min of 1 mg/dL) at 01/05/2022 12:00 AM INR(ratio): 1.0 at 01/05/2022 12:00 AM Age: 36 years PMHx Patient Active Problem List: Hepatic cirrhosis Chronic left hip pain Tachycardia Closed fracture of left hip Elevated liver enzymes Vitamin D deficiency Nicotine abuse The patient's past medical, surgical, family and social history have been reviewed, as outlined in the electronic medical record. Vitals: 02/16/22 1252 BP: 128/86 Pulse: 74 Temp: 98.3 ??F (36.8 ??C) Weight: 78.3 kg (172 lb 9.6 oz) Height: 1.702 m (5' 7 ) Wt Readings from Last 3 Encounters: 02/16/22 78.3 kg (172 lb 9.6 oz) 12/17/21 72.6 kg (160 lb) 10/01/21 85.3 kg (188 lb) General: well appearing Head: atraumatic Eyes: Sclera/Conjunctiva: are noted to be clear bilaterally. Oropharynx: mucous membranes are moist Neck: normal ROM Cardiovascular: normal S1 and S2 Chest: good air movement Abdomen: soft, non-tender, non-distended and no hepatosplenomegaly or masses Musculoskeletal: No clubbing, cyanosis or edema Skin: no rashes Neuro: alert, oriented, normal speech, no focal findings or movement disorder noted XR FEMUR LEFT 2VW Result Date: 01/07/2022 [...] is noted. Dictated by Stanley Joyce MD (radiology scheduler). I, Dr. ALO HEMPHILL MD, [facility] havepersonally reviewed and interpreted this examination/study. This report was electronically signed by ALO HEMPHILL MD, [facility] on 12/18/2021 10:34 AM . US ABDOMEN LIMITED Result Date: 10/21/2021 IMPRESSION: 1.Hepatic cirrhosis with sequela of portal hypertension (recanalization of the umbilical vein) without discrete hepatic lesion. 2.Splenomegaly. 3.No evidence of cholelithiasis or acute cholecystitis. Dictated by Lawrence Meyers D.O. (Metallurgical Laboratory Assistant) IDr. CLIFFORD M.D. have pers onally reviewed and interpreted this examination/study. This report was electronically signed by CLIFFORD COTA M.D. on 10/21/2021 11:[address] HIP LEFT WO CONTRAST Result Date: 12/18/2021 Impression: Displaced left femoral neck fracture, age-indeterminate. Cannot exclude a small posterior-superior acetabular wall fracture. See comments above. Report drafted by Shaun Marie (resident) Dr. JANAE Anton MD have personally reviewed and interpreted this examination/study. This report was electronically signed by JANAE MCDUFFIE MD on 12/18/2021 8:00 AM . XR PELVIS W LEFT HIP 2VW Result Date: 12/18/2021 IMPRESSION: Superolaterally displaced fracture of the left femoral neck. Report dictated by Shama Landry M.D. (radiology scheduler). Dr. ALO Anton MD, [facility] have personally reviewed and interpreted this examination/study. This report was electronically signed by ALO HEMPHILL MD, [facility] on 12/18/2021 10:05 AM . EGD: 09/2021 Esophageal varices s/p band ligation I personally reviewed the old records obtained from other facilities/departments and summarized thedata in this note. Amos Pabon MD welder gas Gastroenterology and Hepatology Abdominal Organ Transplant [facility] February 16, 2022 Coding Rationale New or est? Established Patient Highest problem complexity: 2 or more stable chronic illnesses Data review: Review of prior external note(s): 1 unique source(s) Review of result(s): 2 unique source(s) Ordering of test(s): 3 or more unique test(s) ordered Discussion of management or test interpretation Highest level of risk: Moderate Suggested code: 30994 documented in this encounter Plan of Treatment Upcoming Encounters Date Type Department Care Team (Late st Contact Info) Description 11/29/2024 8:30 AM INSIDE TESTER Office Visit [facility] - Orthopedic Surgery [address] [place] [address] Toño Cabrera MD [address] [facility] [address] [place] [address] 01/08/2025 8:00 AM CDT Appointment [facility] [address] [place] [address] 01/08/2025 9:00 AM CDT Office Visit [facility] - GI [address] [place] [phone] Amos Pabon MD [address] [place] [address] [place] [address] Scheduled Orders Name Type Priority Associated Diagnoses Orde r Schedule ALPHA FETOPROTEIN BLOOD TUMOR MARKER Lab Routine Cirrhosis of liver with ascites, unspecified hepatic cirrhosis type (HCC) Ordered: 02/16/2022 CBC W/O DIFFERENTIAL Lab Routine Cirrhosis of liver with ascites, unspecified hepatic cirrhosis type (HCC) Ordered: 02/16/2022 COMPREHENSIVE METABOLIC PANEL Lab Routine Cirrhosis of liver with ascites, unspecified hepatic cirrhosis type (HCC) Ordered: 02/16/2022 PT-INR Lab Routine Cirrhosis of liver with ascites, unspecified hepatic cirrhosis type (HCC) Ordered: 02/16/2022 documented as of this encounter Goals Goal [...] last dose documented as of this encounter Results * (ABNORMAL) HEPATIC FUNCTION PANEL (02/16/2022 2:26 PM CDT) [facility] Protein Total 8.9(H) 6.0 - 8.3 g/dL 022 3:[address] [facility] Albumin 4.0 3.4 - 5.0 g/dL 02/16/2022 3:[address] [facility] Bilirubin Total 0.5 0.2 - 1.2 mg/dL 01/24 3:[address] [facility] Bilirubin Conjugated 0.3 0.1 - 0.5 mg/dL 02/16/2022 3:50 PM CDT [facility] Bilirubin Unconjugated 0.2 Unconjugated Bilirubin is a calculated value: Reference ranges have not been established. mg/dL 02/16/2022 3:50 PM CDT [facility] Alkaline Phosphatase 130 40 - 150 U/L 02/16/2022 3:50 PM CDT [facility] ALT 20 5 - 55 U/L 02/16/2022 3:50 PM CDT [facility] AST 24 5 - 34 U/L 02/16/2022 3:[address] [facility] Albumin/Globulin Ratio 0.8(L) 1.1 - 2.3 02/16/2022 3:50 PM CDT [facility] Blood BLOOD SPECIMEN / Unknown Lab Venipuncture / Unknown 02/16/2022 2:26 PM CDT 02/16/2022 3:20 PM CDT Amos Pabon MD LAB - CHEMISTRY KURT ZARAGOZA [facility] Organization Address City/State/ZIP Co de Phone Number [address] [address], [facility] [phone] * (ABNORMAL) BASIC METABOLIC PANEL (CALCIUM TOTAL) (02/16/2022 2:26 PM CDT) [facility] BUN 9 7 - 26 mg/dL 02/16/2022 3:[address] [facility] Creatinine 0.76 0.71 - 1.16 mg/dL 02/16/2022 3:50 PM [facility] Sodium 139 136 - 145 mmol/L 02/16/2022 3:50 PM [facility] Potassium 3.7 3.5 - 4.5 mmol/L 02/16/2022 3:50 PM [facility] Chloride 98 98 - 107 mmol/L 02/16/2022 3:50 PM [facility] CO2 31(H) 22 - 29 mmol/L 02/16/2022 3:50 PM [facility] Glucose 70 70 - 115 mg/dL 02/16/2022 3:50 PM [facility] Calcium 10.4(H) 8.4 - 10.2 mg/dL 02/16/2022 3:50 PM [facility] Anion Gap 14 8 - 18 02/16/2022 3:50 PM [facility] BUN/Creatinine Ratio 12 7 - 23 02/16/2022 3:50 PM [facility] Osmolality Calculated 285 270 - 300 mOsm/kg 02/16/2022 3:50 PM [facility] eGFR by CKD-EPI >90 >=90 mL/min/1.7 3 m2 02/16/2022 3:50 PM [facility] Blood BLOOD SPECIMEN / Unknown Lab Venipuncture / Unknown 02/16/2022 2:26 PM CDT 02/16/2022 3:20 PM CDT Amos Pabon MD LAB - CHEMISTRY ORDSukhjinder ZARAGOZA [facility] Organization Address [facility]/State/ZIP Co de Phone Number [facility] [address] [place] [address], [facility] [phone] * PT-INR [facility] (02/16/2022 2:26 PM CDT) PT 13.5 12.1 - 14.8 Seconds 02/16/2022 3:28 PM [facility] INR 1.0 See Comment 02/16/2022 3:28 PM [facility] Comment:The suggested therap eutic range for standard coumadin (warfarin) therapy is an INR of 2.0-3.0. For high-risk patients (Mechanical Mitral Valve Prosthesis, etc.), the suggested prophylactic therapeutic range is an INR of 2.5-3.5. Blood BLOOD SPECIMEN / Unknown Lab Venipuncture / Unknown 02/16/2022 2:26 PM CDT 02/16/2022 3:12 PM CDT Amos Pabon MD LAB - COAGULATION OR DERABLES [facility] [address] [place] [address], [facility] [phone] * CBC W/O DIFFERENTIAL (02/16/2022 2:26 PM CDT) WBC 9.7 3.5 - 10.5 10? 3 /uL 02/16/2022 3:40 PM [facility] RBC 4.61 4.30 - 5.70 10? 6 /uL 02/16/2022 3:40 PM [facility] Hemoglobin 14.6 12.0 - 17.6 g/dL 02/16/2022 3:40 PM [facility] Hematocrit 43.5 35.2 - 51.7 % 02/16/2022 3:40 PM [facility] MCV 94.4 80.7 - 98.3 fL 02/16/2022 3:40 PM [facility] MCH 31.7 26.7 - 34.0 pg 02/16/2022 3:40 PM [facility] MCHC 33.6 30.8 - 35.9 g/dL 02/16/2022 3:40 PM [facility] Platelet Count 184 150 - 400 10? 3 /uL 02/16/2022 3:40 PM [facility] RDW-SD 49.4 36.0 - 50.0 fL 02/16/2022 3:40 PM [facility] RDW-CV 14.5 11.2 - 14.8 % 02/16/2022 3:40 PM [facility] MPV 11.6 9.4 - 12.9 fL 02/16/2022 3:40 PM CDT [facility] nRBC Absolute 0.00 0 10? 3 /uL 02/16/2022 3:40 PM CDT [facility] nRBC Auto 0.0 0 /100 WBC 02/16/2022 3:40 PM CDT [facility] Blood BLOOD SPECIMEN / Unknown Lab Venipuncture / Unknown 02/16/2022 2:26 PM CDT 02/16/2022 3:19 PM CDT Amos Pabon MD LAB - HEMATOLOGY ORD ERABLES [address] [address], [facility] [phone] * ALPHA FETOPROTEIN BLOOD TUMOR MARKER (02/16/2022 2:26 PM CDT) Alpha-Fetoprote in Tumor Marker 2.9 <=8.3 ng/mL 02/16/2022 4:09 PM CDT [facility] Comment: AFP values will vary depending on testing procedure used. Results are not comparable across different methods. AFP values obtained by [facility] using an Jenkins Alinity Immunoassay. Blood BLOOD SPECIMEN / Unknown Lab Venipuncture / Unknown 02/16/2022 2:26 PM CDT 02/16/2022 3:24 PM CDT Amos Pabon MD LAB - CHEMISTRY ORDE RABVIDA Performing Organization Address City/[facility]/ZIP Co de Phone Number [address] [address], [place] [phone] documented in this encounter Visit Diagnoses Diagnosis Cirrhosis of liver with ascites, unspecified hepatic cirrhosis type (HCC)- Primary Alcoholic cirrhosis of liver without ascites (HCC) Alcoholic cirrhosis of liver Liver failure without hepatic coma, unspecified chronicity (HCC) Depression, unspecified depression type Alcohol use, unspecified with other alcohol-induced disorder (HCC) documented in this encounter Care Teams Specimen Technician Relationship Specialty Start Date End Date Major Kraft MD PCP - General 07/01/21 06/08/22 Eric Oconnell MD Hospitalist 10/10/21 documented as of this encounter
--- OUTSIDE RECORDS SUMMARY | 2024-10-19 20:13 | XMS_ITS | Encounter Summary ---
Author Organization [facility] Address [address] [place] [address] Care Team Providers Care Planetarium Sky Show Technician Name Role Phone Eric Oconnell MD Unavailable [phone] Gregorio James MD Primary Care Provider [phone] Encounter Details Date Type Department Care Team (Latest Contact Info) Description 08/11/2022 9:00 AM CDT - 08/11/2022 11:59 PM CDT Hospital Encounter [facility] - Orthopedics [address] [place] [phone] Toño Cabrera MD [address] [place], [place] [id number] Discharge Disposition: Home or Self Care Social [...] tablet by mouth 2 times daily spironolactone (Aldactone) 100 MG tablet Take 1 (one) tablet by mouth once daily 07/30/2022 buPROPion SR 12hr (WELLBUTRIN-SR) 100 MG tablet [...] bedtime 02/19/2023 documented as of this encounter Plan of Treatment Upcoming Encounters Date Type Department Care Team (Late st Contact Info) Description 11/29/2024 8:30 AM ADULT NURSE PRACTITIONER Office Visit [facility] - Orthopedic Surgery [address] [place] [address] Toño Cabrera MD [address] [facility] [address] [place] [address] 01/08/2025 8:00 AM CDT Appointment [facility] [address] [place] [address] 01/08/2025 9:00 AM CDT Office Visit [facility] - GI [address] [facility], [place] [phone] Amos Pabon MD [address] [place] [address] [place] [address] documented as of this encounter Goals Goal [...] Name Priority Date/Time Associated Diagnosis Comments XR KNEE LEFT 4VW OR MORE Routine 08/11/2022 9:22 AM CDT Left knee pain, unspecified chronicity documented in this encounter Results * XR KNEE LEFT 4VW OR MORE [...] DATE/TIME OF EXAM: ??08/11/2022 9:22 AM, LOCATION ??[facility] INDICATION: M25.562: Pain in left knee Findings: [...] MORE, DATE/TIME OF EXAM: 29:22 AM, LOCATION [facility] INDICATION: M25.562: Pain in left knee Findings: [...] AM Toño Cabrera MD DIAGNOSTIC IMAGING ORDERABLES documented in this encounter Visit Diagnoses Diagnosis Left knee pain, unspecified chronicity documented in this encounter Care Teams Planetarium Sky Show Technician Relationship Specialty Start Date End Date Gregorio James MD [address] [place] [phone] PCP - General 08/11/22 05/16/24 Eric Oconnell MD Hospitalist 10/10/21 documented as of this encounter
--- OUTSIDE RECORDS SUMMARY | 2024-10-19 20:13 | XMS_ITS | Encounter Summary ---
Author Organization [facility] Address [address] [facility] [place] [address] Care Team Providers Care Top Cleaner Name Role Phone Eric Oconnell MD Unavailable [phone] Raya Carty PA-C Primary Care Provider Encounter Details Date Type Department Care Team (Late st Contact Info) Description 06/19/2022 Patient Outreach [facility] [address] [place] [phone] Kaila Charlton, ALFREDO Social History Tobacco Use Types Packs/Day [...] st Contact Info) Description 11/29/2024 8:30 AM LASTING MACHINE OPERATOR HAND METHOD Office Visit [facility] - Orthopedic Surgery [address] [place] [address] Toño Cabrera MD [address] [address] 01/08/2025 8:00 AM CDT Appointment [facility] [address] [place] [phone] 01/08/2025 9:00 AM CDT Office Visit [facility] - GI [address] [facility], [place] [phone] Amos Pabon MD [address] [place] [address] [place] [address] documented as of this encounter Goals Goal [...] on filedocumented in this encounter Care Teams Top Cleaner Relationship Specialty Start Date End Date Raya Carty PA-C [address] [place] [phone] PCP - General 06/09/22 07/05/22 Eric Oconnell MD Hospitalist 10/10/21 documented as of this encounter
--- OUTSIDE RECORDS SUMMARY | 2024-10-19 20:13 | XMS_ITS | Encounter Summary ---
Author Organization [facility] Address [address] [facility] [place] [address] Care Team Providers Care Coin Teller Name Role Phone Major Kraft MD Primary Care Provider [phone] Eric Oconnell MD Unavailable + [phone] Encounter Details Date Type Department Care Team (Latest Contact Info) Description 02/16/2022 2:04 PM CDT - 02/16/2022 11:59 PM CDT Hospital Encounter [facility] OP DRAW STATION [address] [place] [phone] Ayden Stearns MD [address] [place] [address] Discharge Disposition: Home or Self Care Social [...] No 12/18/2021 documented as of this encounter Medications at [...] 100 mg by mouth once daily 02/19/2023 calcium 500 MG tablet Take 1 (one) tablet by mouth 2 times daily with morning and evening meal for 90 days 12/19/2021 03/19/2022 citalopram (CELEXA) 10 MG tablet Take 10 mg by mouth once daily 03/05/2022 citalopram (CELEXA) 20 MG tablet Take 1 (one) tablet by mouth once daily 06/29/2023 furosemide (LASIX) 20 MG tablet Take 60 mg by mouth once daily 02/22/2022 HM LIDOCAINE PATCH EX 2022 lactulose (CHRONULAC) 10 GM/15ML solution Take 5 mL by mouth 3 times daily 06/29/2023 Melatonin 3 MG 06/29/2023 mirtazapine (REMERON) 30 MG tablet Take 30 mg by mouth at bedtime 02/19/2023 multivitamin daily tablet Take 1 (one) tablet by mouth once daily for 90 days 12/20/2021 03/20/2022 ondansetron, disintegrating, (ZOFRAN ODT) 4 MG tablet [...] mg by mouth at bedtime 02/19/2023 rifAXIMin (XIFAXAN) 550 MG tablet Take 1 (one) tablet by mouth 2 times daily 60 tablet 11 10/16/2021 06/11/2022 spironolactone (ALDACTONE) 100 MG tablet Take 100 mg by mouth once daily 02/22/2022 spironolactone (ALDACTONE) 50 MG tablet Take 1 (one) tablet by mouth once daily 06/29/2023 temazepam (RESTORIL) 7.5 MG capsule Take 7.5 mg by mouth at bedtime 03/05/2022 THIAMINE HCL PO Take 100 mg by mouth 02/2023 traMADol (ULTRAM) 50 MG tablet Take 1 (one) tablet by mouth every 6 hours as needed 28 tablet 12/19/2021 11/17/2023 traZODone (DESYREL) 50 MG tablet Take 1 (one) tablet by mouth at bedtime 02/19/2023 vitamin D, ergocalciferol, (DRISDOL) 1.25 MG (31026 UT) capsule Take 1 (one) capsule by mouth every 7 days for 90 days 4 capsule 2 12/26/2021 03/26/2022 documented as of this encounter Progress Notes * Amos Pabon MD - 02/16/2022 11:59 PM CDT Labs are stable. Liver function is normal. Renal function and electrolytes are normal. May cut down diuretics as Lasix 20 and spironolactone 50 daily. Repeat labs in 3 months. CBC/CMP/INR. documented in this encounter Plan of Treatment Upcoming Encounters Date Type Department Care Team (Late st Contact Info) Description 11/29/2024 8:30 AM BIOLOGY INTERN Office Visit [facility] - Orthopedic Surgery [address] [place] [address] Toño Cabrera MD [address] [facility] [address] [place] [address] 01/08/2025 8:00 AM CDT Appointment [facility] [address] [place] [phone] 01/08/2025 9:00 AM CDT Office Visit [facility] - GI [address] [facility], [place] [phone] Amos Pabon MD [address] [place] [address] [place] [address] documented as of this encounter Goals Goal [...] Procedure Name Priority Date/Time Associated Diagnosis Comments PT-INR [facility] Routine 02/16/2022 2:26 PM CDT Cirrhosis of liver with ascites, unspecified hepatic cirrhosis type (HCC) ALPHA FETOPROTEIN BLOOD TUMOR MARKER Routine 02/16/2022 2:26 PM CDT Cirrhosis of liver with ascites, unspecified hepatic cirrhosis type (HCC) CBC W/O DIFFERENTIAL Routine 02/16/2022 2:26 PM CDT Cirrhosis of liver with ascites, unspecified hepatic cirrhosis type (HCC) BASIC METABOLIC PANEL (CALCIUM TOTAL) Routine 02/16/2022 2:26 PM CDT Cirrhosis of liver with ascites, unspecified hepatic cirrhosis type (HCC) HEPATIC FUNCTION PANEL Routine 02/16/2022 2:26 PM CDT Cirrhosis of liver with ascites, unspecified hepatic cirrhosis type (HCC) documented in this encounter Results * (ABNORMAL) HEPATIC FUNCTION PANEL (02/16/2022 2:26 PM CDT) Pathologist [facility] Protein Total 8.9(H) 6.0 - 8.3 g/dL 022 3:50 PM CDT [facility] Albumin 4.0 3.4 - 5.0 g/dL 02/16/2022 3:50 PM T [facility] Bilirubin Total 0.5 0.2 - 1.2 mg/dL 01/24 3:50 PM [facility] Bilirubin Conjugated 0.3 0.1 - 0.5 mg/dL 02/16/2022 3:50 PM [facility] Bilirubin Unconjugated 0.2 Unconjugated Bilirubin is a calculated value: Reference ranges have not been established. mg/dL 02/16/2022 3:50 PM [facility] Alkaline Phosphatase 130 40 - 150 U/L 02/16/2022 3:50 PM [facility] ALT 20 5 - 55 U/L 02/16/2022 3:50 PM [facility] AST 24 5 - 34 U/L 02/16/2022 3:50 PM [facility] Albumin/Globulin Ratio 0.8(L) 1.1 - 2.3 02/16/2022 3:50 PM [facility] H[facility]ITAL Blood BLOOD SPECIMEN / Unknown Lab Venipuncture / Unknown 02/16/2022 2:26 PM CDT 02/16/2022 3:20 PM CDT Amos Pabon MD LAB - CHEMISTRY KURT [facility] Organization Address City/State/ZIP Co de Phone Number [facility] [address] [place] [address], [facility] [phone] * (ABNORMAL) BASIC METABOLIC PANEL (CALCIUM TOTAL) (02/16/2022 2:26 PM CDT) BUN 9 7 - 26 mg/dL 02/16/2022 3:50 PM T [facility] Creatinine 0.76 0.71 - 1.16 mg/dL 02/16/2022 3:50 PM T [facility] Sodium 139 136 - 145 mmol/L 02/16/2022 3:50 PM T [facility] Potassium 3.7 3.5 - 4.5 mmol/L 02/16/2022 3:50 PM [facility] Chloride 98 98 - 107 mmol/L 02/16/2022 3:50 PM [facility] CO2 31(H) 22 - 29 mmol/L 02/16/2022 3:50 PM T [facility] Glucose 70 70 - 115 mg/dL 02/16/2022 3:50 PM T [facility] Calcium 10.4(H) 8.4 - 10.2 mg/dL 02/16/2022 3:50 PM [facility] Anion Gap 14 8 - 18 02/16/2022 3:50 PM [facility] BUN/Creatinine Ratio 12 7 - 23 02/16/2022 3:50 PM [facility] Osmolality Calculated 285 270 - 300 mOsm/kg 02/16/2022 3:50 PM [facility] eGFR by CKD-EPI >90 >=90 mL/min/1.7 3 m2 02/16/2022 3:50 PM T [facility] Blood BLOOD SPECIMEN / Unknown Lab Venipuncture / Unknown 02/16/2022 2:26 PM CDT 02/16/2022 3:20 PM CDT Amos Pabon MD LAB - CHEMISTRY KURT Cid Organization Address City/State/ZIP Co de Phone Number [facility] [address] [place] [address], [facility] [phone] * PT-INR [facility] (02/16/2022 2:26 PM CDT) Pathologist [facility] PT 13.5 12.1 - 14.8 Seconds 02/16/2022 3:28 PM CDT [facility] INR 1.0 See Comment 02/16/2022 3:28 PM [facility] Comment:The suggested therap eutic range for standard coumadin (warfarin) therapy is an INR of 2.0-3.0. For high-risk patients (Mechanical Mitral Valve Prosthesis, etc.), the suggested prophylactic therapeutic range is an INR of 2.5-3.5. Blood BLOOD SPECIMEN / Unknown Lab Venipuncture / Unknown 02/16/2022 2:26 PM CDT 02/16/2022 3:12 PM CDT Amos Pabon MD LAB - COAGULATION OR DERABLES [facility] [address] [place] [address], [facility] [phone] * CBC W/O DIFFERENTIAL (02/16/2022 2:26 PM CDT) WBC 9.7 3.5 - 10.5 10? 3 /uL 02/16/2022 3:40 PM CDT [facility] RBC 4.61 4.30 - 5.70 10? 6 /uL 02/16/2022 3:40 PM [facility] Hemoglobin 14.6 12.0 - 17.6 g/dL 02/16/2022 3:40 PM [facility] Hematocrit 43.5 35.2 - 51.7 % 02/16/2022 3:40 PM [facility] MCV 94.4 80.7 - 98.3 fL 02/16/2022 3:40 PM T [facility] MCH 31.7 26.7 - 34.0 pg 02/16/2022 3:40 PM [facility] MCHC 33.6 30.8 - 35.9 g/dL 02/16/2022 3:40 PM [facility] Platelet Count 184 150 - 400 10? 3 /uL 02/16/2022 3:40 PM [facility] RDW-SD 49.4 36.0 - 50.0 fL 02/16/2022 3:40 PM CDT [facility] RDW-CV 14.5 11.2 - 14.8 % 02/16/2022 3:40 PM CDT [facility] MPV 11.6 9.4 - 12.9 fL 02/16/2022 3:40 PM CDT [facility] nRBC Absolute 0.00 0 10? 3 /uL 02/16/2022 3:40 PM CDT [facility] nRBC Auto 0.0 0 /100 WBC 02/16/2022 3:40 PM CDT [facility] Blood BLOOD SPECIMEN / Unknown Lab Venipuncture / Unknown 02/16/2022 2:26 PM CDT 02/16/2022 3:19 PM CDT Amos Pabon MD LAB - HEMATOLOGY ORD MIKE Performing Organization Address City/[facility]/ZIP Co de Phone Number [address] [address], [place] [phone] * ALPHA FETOPROTEIN BLOOD TUMOR MARKER (02/16/2022 2:26 PM CDT) Alpha-Fetoprote in Tumor Marker 2.9 <=8.3 ng/mL 02/16/2022 4:09 PM CDT [facility] Comment: AFP values will vary depending on testing procedure used. Results are not comparable across different methods. AFP values obtained by [facility] using an Jenkins Alinity Immunoassay. Blood BLOOD SPECIMEN / Unknown Lab Venipuncture / Unknown 02/16/2022 2:26 PM CDT 02/16/2022 3:24 PM CDT Amos Pabon MD LAB - CHEMISTRY KURT [place] [address] [address], [place] [phone] documented in this encounter Visit Diagnoses Diagnosis Cirrhosis of liver with ascites, unspecified hepatic cirrhosis type (HCC) documented in this encounter Care Teams Coin Teller Relationship Specialty Start Date End Date Major Kraft MD PCP - General 07/01/21 06/08/22 Eric Oconnell MD Hospitalist 10/10/21 documented as of this encounter
--- OUTSIDE RECORDS SUMMARY | 2024-10-19 20:13 | XMS_ITS | Encounter Summary ---
Author Organization [facility] Address [address] [facility] [place] [address] Care Team Providers Care Gas Fitter Apprentice Name Role Phone Major Kraft MD Primary Care Provider + [phone] Eric Oconnell MD Unavailable + [phone] Reason for Visit * Reason Comments Concerns Encounter Details Date Type Department Care Team (Late st Contact Info) Description 11/25/2021 Telephone [facility] - Nephrology [address] [place] [address], [place] [address] Taina Ashley RN Concerns Social History Tobacco Use Types Packs/Day Years Used Date Smoking Tobacco: Every Day Cigarettes Smokeless Tobacco: Never Comments:less than 5 cigaret noman a day Alcohol Use Standard Drinks/Week Comments Not Currently 0 (1 standard drink = 0.6 oz pur e alcohol) Sex and Gender Information Value Date Recorded Sex Assigned at Not on file Gender Identity Not on file Sexual Orientation Not on file documented as of this encounter Miscellaneous Notes * Telephone Encounter - Sheridan Ng RN - 12/03/2021 2:26 PM CST Called patient to follow up sales assistant institutional sales from last week. He states he is doing better now. He increased his lactulose and has seen improvement. Also clarified that his disability paperwork has not been received and if he can make sure it was faxed to our office or bring it with him to his appointment wecan review it. He states understanding. TOR * Telephone Encounter - Taina Ashley RN - 11/25/2021 4:12 PM CST Pt called and wants to know if he can have an earlier appt because he says his condition is worsening. Also wants to speak with the administrator social welfare about his pending Social Security disability paperwork. TOR documented in this encounter Plan of Treatment Upcoming Encounters Date Type Department Care Team (Late st Contact Info) Description 11/29/2024 8:30 AM JANITOR Office Visit [facility] - Orthopedic Surgery [address] [facility] [place] [address] Toño Cabrera MD [address] [facility] [address] [place] [address] 01/08/2025 8:00 AM CDT Appointment [facility] [address] [place] [phone] 01/08/2025 9:00 AM CDT Office Visit [facility] - GI [address] [facility], [place] [phone] Amos Pabon MD [address] [place] [address] [place] [address] documented as of this encounter Goals Goal [...] on filedocumented in this encounter Care Teams Gas Fitter Apprentice Relationship Specialty Start Date End Date Major Kraft MD PCP - General 07/01/21 06/08/22 Eric Oconnell MD Hospitalist 10/10/21 documented as of this encounter
--- OUTSIDE RECORDS SUMMARY | 2024-10-19 20:13 | XMS_ITS | Encounter Summary ---
Author Organization [facility] Address [address] [facility] [place] [address] Care Team Providers Care Ice Cream Vault Worker Name Role Phone Major Kraft MD Primary Care Provider + [phone] Eric Oconnell MD Unavailable + [phone] Reason for Visit * Reason Onset Date Comments Med Question 11/21/2021 Encounter Details Date Type Department Care Team (Late st Contact Info) Description 11/21/2021 Telephone [facility] - [address] [facility] [place] [phone] Poppy Newsome, ALFREDO Med Question Social History Tobacco Use Types Packs/Day Years [...] Telephone Encounter - Sheridan Ng RN - 11/21/2021 11:49 AM CST Faxed phone conversation with following message to the patients care home and pharmacy: I apologize for the confusion regarding patients pain medication. Dr. Pabon is not the prescribing physician for Tramadol so we can not fax a script for Tramadol. Our understanding is that the patients doctor at the care home was seeking approval for 50 mg every 6 hours as needed for pain. Patient can have this per liver MD but we are not prescribing for chronic pain. Patient will need pain management/PCP direction if needing more direction for chronic pain. PERSON * Telephone Encounter - Poppy Newsome RN - 11/21/2021 11:41 AM YARD PERSON Patient called again in regards to Tramadol order. RN spoke with patient and DON at facility.We fill fax over the note from Dr. Pabon. RN advised patient, and RN at the facility, that we will not be prescribing the medicine, but it is ok for the patient to take Tramadol. Patient verbalized understanding. PERSON documented in this encounter Plan of Treatment Upcoming Encounters Date Type Department Care Team (Late st Contact Info) Description 11/29/2024 8:30 AM YARD PERSON Office Visit [facility] - Orthopedic Surgery [address] [place] [address] Toño Cabrera MD [address] [facility] [address] [place] [address] 01/08/2025 8:00 AM CDT Appointment [facility] [address] [place] [address] 01/08/2025 9:00 AM CDT Office Visit [facility] - GI [address] [facility], [place] [phone] Amos Pabon MD [address] [place] [address] [place] [address] documented as of this encounter Goals Goal [...] on filedocumented in this encounter Care Teams Ice Cream Vault Worker Relationship Specialty Start Date End Date Major Kraft MD PCP - General 07/01/21 06/08/22 Eric Oconnell MD Hospitalist 10/10/21 documented as of this encounter
--- OUTSIDE RECORDS SUMMARY | 2024-10-19 20:13 | XMS_ITS | Encounter Summary ---
Author Organization [facility] [place] Address [address] [place] [address] Care Team Providers Care Materials Development Engineer Name Role Phone Major Kraft MD Primary Care Provider [phone] Eric Oconnell MD Unavailable + [phone] Reason for Visit * Auth/Cert Specialty Diagnoses / Procedures Referred By Rod t Referred To Contact Diagnoses Other cirrhosis of liver (HCC) Other cirrhosis of liver [K74.69] Procedures OR ED EGD FLEX TRANSORAL DX OR EGD FLEX TRANSORAL W BX SNGL OR MULT ESOPHAGOGASTRODUODENOSCOPY (EGD) DIAGNOSTIC Referral ID Status Reason Start Date Expiration Date Visits Re quested Visits Authorized [id number] 1 1 Encounter Details Date Type Department Care Team (Late st Contact Info) Description 03/05/2022 9:34 AM CDT - 03/05/2022 10:04 AM T Surgery [facility] [address] [place] [phone] Amos Pabon MD [facility] 2L [place] [address] EGD Surgery Details Date/Time Status Location OR Service Patient Class Case Class Case Type Trauma Case? 03/05/2022 9:34 AM Posted [facility] Endoscopy ENDO 2 Gastroenterology Surgery Day Care Panel 1 Procedure LRB Anes Op Region Wound Class Comments EGD N/A MAC Abdomen NA esophagitis, antral ulcers, Holt's A. gastric bx R/O H pylori Surgeon Surgeon Role Service Panel Amos Pabon MD Primary Gastroenterology 1 Special Needs at senior living documented in this encounter Social History Tobacco Use Types Packs/Day Years [...] Sign Reading Time Taken Comments Blood Pressure 113/85 03/05/2022 10:00 AM CDT Pulse 80 03/05/2022 10:00 AM CDT Temperature 36.7 ??C (98 ??F) 03/05/2022 10:00 AM CDT Respiratory Rate 16 03/05/2022 10:00 AM CDT Oxygen Saturation 96% 03/05/2022 10:00 AM CDT Inhaled Oxygen Concentration - - Weight 78 kg (172 lb) 03/05/2022 9:11 AM CDT Height 170.2 cm (5' 7 ) 03/05/2022 9:11 AM CDT Body Mass Index 26.94 03/05/2022 9:11 AM CDT documented in this encounter Functional Status Functional Status Response Date of Assess ment Is person deaf or have serious hearing difficult y? No 03/05/2022 Is person blind or have serious difficulty seein g? No 03/05/2022 Does person have serious dif ficulty walking/climbing stairs? Yes 03/05/2022 Does person have difficulty dressing/bathing? Ye s 03/05/2022 Does person have difficulty doing errands alone? Yes 03/05/2022 Cognitive Status Response Date of Assessm ent Does person have difficulty concentrating/remembering/making decisions? No 03/05/2022 documented as of this encounter Discharge Instructions * Discharge Instructions* Cherie Whitlock RN - 03/05/2022 10:11 AM CDT Images from the original note [...] ask them during your visits. ?? Copyright [employer] 2020 Information is for End User's use only and may not be sold, redistributed or otherwise used for commercial purposes. All illustrations and images included in CareNotes?? are the copyrighted property of [employer] or [employer] The above information is an educational technology specialist only. It is not intended as medical [...] for 90 days 12/19/2021 03/19/2022 citalopram (CELEXA) 20 MG tablet Take 1 [...] 60 tablet 11 10/16/2021 06/11/2022 spironolactone (ALDACTONE) 50 MG tablet Take 1 (one) tablet by mouth once daily 06/29/2023 THIAMINE HCL PO Take 100 mg by mouth 02/2023 traMADol (ULTRAM) 50 MG tablet Take 1 (one) tablet by mouth every 6 hours as needed 28 tablet 12/19/2021 11/17/2023 traZODone (DESYREL) 50 MG tablet Take 1 (one) tablet by mouth at bedtime 02/19/2023 vitamin D, ergocalciferol, (DRISDOL) 1.25 MG (14501 UT) capsule Take 1 (one) capsule by mouth every 7 days for 90 days 4 capsule 2 12/26/2021 03/26/2022 documented as of this encounter H&P Notes * Amos Pabon MD - 03/05/2022 9:24 AM CDT ENDOSCOPY PRE-PROCEDURE MEDICAL HISTORY & PHYSICAL Today's Date: 03/05/2022 9:24 AM Lukas Ramirez Emily 36 year old male Date of Service: 03/05/2022 Temp 98.3 ??F (36.8 ??C) (Oral) Ht 1.702 m (5' 7 ) Wt 78 kg (172 lb) BMI 26.94 kg/m2 History: Past Medical History: Diagnosis Date ??? Anxiety disorder ??? Depression ??? Fracture neck of left femur ??? Hypertension ??? Insomnia Allergies Allergen Reactions ??? Peanut-Derived Anaphylaxis Medications Prior to Admission Medication Sig Dispense [...] meal for 90 days ??? citalopram (CELEXA) 20 MG tablet Take 20 mg by mouth once daily ??? ferrous sulfate 325 (65 FE) MG [...] mouth once daily for 90 days ??? ondansetron, disintegrating, (ZOFRAN ODT) 4 MG tablet Take 4 mg by mouth every 8 hours as needed for Nausea/Vomiting Allow tablet to dissolve on the tongue ??? pantoprazole EC (PROTONIX) 40 MG tablet [...] mouth 2 times daily 60 tablet 11 ??? spironolactone (ALDACTONE) 50 MG tablet Take 50 mg by mouth once daily ??? THIAMINE HCL PO Take 100 mg by mouth ??? traMADol (ULTRAM) 50 MG tablet Take 1 (one) tablet by mouth every 6 hours as needed 28 tablet 0 ??? traZODone (DESYREL) 50 MG tablet Take 50 mg by mouth at bedtime ??? vitamin D, ergocalciferol, (DRISDOL) 1.25 MG (40915 UT) capsule Take 1 (one) capsule by mouth every 7 days for 90 days 4 capsule 2 No current facility-administered medications for this encounter. [...] 5.50 - 6.6 Recent Labs Component Name 02/16/22142501/05/22 0000 12/25/21 0000 12/19/21 0135 12/17/21 2257 [...] - - 98 Recent Labs Component Name 02/16/22142501/05/22 0000 12/25/21 0000 INR 1.0 1.0 1.1 US ABDOMEN LIMITED Result Date: 10/21/2021 IMPRESSION: 1.Hepatic cirrhosis with sequela of portal hypertension (recanalization of the umbilical vein) without discrete hepatic lesion. 2.Splenomegaly. 3.No evidence of cholelithiasis or acute cholecystitis. Dictated by Lawrence Meyers D.O. (Conference Reservationist) I, Dr. CLIFFORD COTA M.D. have pers onally reviewed and interpreted this examination/study. This report was electronically signed by CLIFFORD COTA M.D. on 10/21/2021 11:38 AM . Physicial Exam: General appearance: alert, cooperative, no distress Heart: regular rhythm, normal S1 and S2 Lungs: breath sounds normal and symmetric; no rales or wheezes Abdomen: soft without mass, non-tender, with normal bowel sounds Extremities: no clubbing, cyanosis or edema ASA Evaluation and Anesthesia Plan: Anesthesia administered per Anesthesia Department Indication(s) for Procedure: Other: post EVL surveillance Procedure Planned: EGD Amos Pabon MD documented in this encounter Plan of Treatment Upcoming Encounters Date Type Department Care Team (Late st Contact Info) Description 11/29/2024 8:30 AM COMPUTER TECHNICAL SUPPORT SPECIALIST Office Visit [facility] - Orthopedic Surgery [address] [facility] [address] [place] [address] Toño Cabrera MD [address] [facility] [address] [place] [address] 01/08/2025 8:00 AM CDT Appointment [facility] [address] [place] [phone] 01/08/2025 9:00 AM CDT Office Visit [facility] - GI [address] [facility] [place] [phone] Amos Pabon MD [address] [place] [address] [place] [address] documented as of this encounter Goals Goal [...] Procedure Name Priority Date/Time Associated Diagnosis Comments PATHOLOGY TISSUE Routine 03/05/2022 9:47 AM CDT Other cirrhosis of liver (HCC) OR ED EGD FLEX TRANSORAL DX 03/05/2022 9:43 AM CDT Other cirrhosis of liver (HCC) Special Needs at senior living EGD Routine 03/05/2022 9:23 AM CDT documented in this encounter Results * PATHOLOGY TISSUE (03/05/2022 9:47 AM CDT) Case Report Surgical Pathology Report ? Case: [id number] ? Authorizing Provider: ??Amos Pabon MD ?Collected: ? 03/05/2022 09:47 AM ? Ordering Location: ? [facility] ?Received: ?03/05/2022 11:35 AM ? Pathologist: ? Елена Stubbs MD ? Specimen: ?Gastric, . ??gastric bx R/O H pylori ? 03/06/2022 12:19 PM CDT [facility] Final Diagnosis Stomach, biopsy (A): - Mild reactive changes and proton pump inhibitor effect - No active inflammation or H. pylori organisms (H&E examination) 03/06/2022 12:19 PM CDT [facility] Microscopic Description and Comment Microscopic examination substantiates the final diagnosis. 03/06/2022 12:19 PM T [facility] PATHOLOGY LAB Clinical History The patient is a 36-year-old man here for 2nd degree variceal eradication. Operative procedure/findings: EGD - few non-bleeding superficial gastric ulcers in antrum, biopsied. 03/06/2022 12:19 PM T [facility] PATHOLOGY LAB Gross Description The requisition and specimen(s) are identified with the patient's name Lukas Diaz. Received in formalin, specimen A , are 4 pink-briscoe tissues, 0.1-0.7 cm in greatest dimension and 1.3 x 0.2 x 0.2 cm in aggregate, submitted in toto in cassette A1. DF 03/06/2022 12:19 PM [facility] PATH[facility]Y [facility] Disclaimer The performance characteristics of all immunohistochemical and indirect immunofluorescence stains (if any) cited in this report were determined by the Histopathology Laboratory of [facility]. Some of these tests were developed by [...] the attending (teaching) pathologist. 03/06/2022 12:19 PM T [facility] PATHOLOGY LAB Embedded Images 03/06/2022 12:19 PM [facility] Biopsy, NOS GASTRIC CONTENTS SPECIMEN / Unknown 03/05/2022 9:47 AM CDT 03/05/2022 11:35 AM CDT Comment:Pre-op diagnosis: Other cirrhosis of liver [K74.69] Amos Pabon MD LAB - PATHOLOGY/CYTO LOGY ORDERABLES [facility] PATHOLOGY LAB [address] [phone] * EGD (03/05/2022 9:23 AM CDT) Report Endoscopy POC Endoscopy Department Report __ _ Patient Name: Lukas Diaz ? Procedure Date: 03/05/2022 9:23 AM ?Date of : 1985 Classification: Outpatient ?Gender: Male Ethnicity: Not or ? Race: White __ _ Providers: ?Amos Pabon Referring MD: ? Major Kraft (Referring ) Procedure: ?Upper GI endoscopy Indications: ?2nd degree [...] Procedure Code(s): ? --- Professional --- ? 57462, Esophagogastroduode noscopy, flexible, transoral; with biopsy, ? single or multiple Diagnosis Code(s): ?--- Professional --- ?K21.0, Gastro-esophageal reflux disease with ?esophagitis ?K22.8, Other specified diseases of esophagus ?K25.9, Gastric ulcer, unspecified as acute or ?chronic, without hemorrhage or perforation ?I85.00, Esophageal varices without bleeding CPT copyright 2019 [employer]. All rights reserved. The codes documented in this report are preliminary and upon internet project manager review may be revised to meet current compliance requirements. Amos Pabon, 03/05/2022 9:59:19 AM Note Initiated On: 03/05/2022 9:23 AM Number of Addenda: 0 ? [facility] ? [address] [place], [place] [id number] [place] [address] PROVATION 03/05/2022 9:23 AM CDT Amos Pabon MD GI PROCEDURE ORDERAB LES [facility] documented in this encounter Visit Diagnoses Diagnosis Other cirrhosis of liver (HCC) Esophageal varices without bleeding, unspecified esophageal varices type (HCC) Gastro-esophageal reflux disease with esophagitis, without bleeding Other specified disease of esophagus Gastric ulcer without hemorrhage or perforation, unspecified chronicity Other cirrhosis of liver (HCC) documented in this encounter Administered Medications Inactive Administered Medications - up to 3 most recent administrations Medication Order MAR Action Action Date Dose Rate Site 0.9% NaCl injection 3 mL 3 mL, Intracatheter, PRE-PROCEDURE MULTIPLE, Starting on Oly 03/05/22 at 1012, Until Oly 03/05/22 at 1147, For Saline Lock flushes if one is inserted for Bronchoscopy/Endoscopy procedure., Pre-procedure (GI) documented in this encounter Active and Recently Administered Medications Times are shown in CDT. Scheduled Medication Order 03/03/2022 03/04/2022 03/05/2022 0.9% NaCl injection 3 mL 3 mL, Intracatheter, PRE-PROCEDURE MULTIPLE, Starting on Oly 03/05/22 at 1012, Until Oly 03/05/22 at 1147, For Saline Lock flushes if one is inserted for Bronchoscopy/Endoscopy procedure., Pre-procedure (GI) documented in this encounter Care Teams Materials Development Engineer Relationship Specialty Start Date End Date Major Kraft MD PCP - General 07/01/21 06/08/22 Eric Oconnell MD Hospitalist 10/10/21 documented as of this encounter
--- OUTSIDE RECORDS SUMMARY | 2024-10-19 20:13 | XMS_ITS | Encounter Summary ---
Author Organization [facility] Health Address [address] [place] [address] Care Team Providers Care Hand Surgeon Name Role Phone Major Kraft MD Primary Care Provider + [phone] Eric Oconnell MD Unavailable + [phone] Reason for Visit * Reason Onset Date Comments Surgery Scheduling 01/07/2022 Encounter Details Date Type Department Care Team (Late st Contact Info) Description 01/07/2022 Telephone [facility] - [address] [place] [phone] Anai Hahn RN Surgery Scheduling Social History Tobacco Use Types Packs/Day Years Used Date Smoking Tobacco: Every Day Cigarettes Smokeless Tobacco: Never Comments:less than 5 cigaret noman a day Alcohol Use Standard Drinks/Week Comments Yes 0 (1 standard drink = 0.6 oz [...] No 12/18/2021 documented as of this encounter Miscellaneous Notes * Telephone Encounter - Sheridan Ng RN - 01/21/2022 2:06 PM CDT Patient returns call. Placed patient on the schedule for Wednesday01/26/22. Received clearance and will print for the day of the office visit. Confirmed with the doctor that recent labs are sufficient.Patient to call back if any issues arise with arranging transportation. * Telephone Encounter - Anai Hahn RN - 01/07/2022 1:26 PM CDT Patient called to update Dr. Pabon that he saw ortho today ( records in [facility]). Patient has a lefthip fracture and will need a replacement. Patient will need clearance from hepatology to proceed with surgery. Per patient okay to put letter of clearance into [facility] as surgeons are [facility]. documented in this encounter Plan of Treatment Upcoming Encounters Date Type Department Care Team (Late st Contact Info) Description 11/29/2024 8:30 AM BATCH AND FURNACE OPERATOR Office Visit [facility] - Orthopedic Surgery [address] [place] [address] Toño Cabrera MD [address] [facility] [address] [place] [address] 01/08/2025 8:00 AM CDT Appointment [facility] [address] [place] [address] 01/08/2025 9:00 AM CDT Office Visit [facility] - GI [address] [facility], [place] [address] Amos Pabon MD [address] [facility] [address] [place] [address] documented as of this encounter Goals Goal Patient Goal Type Associated Problems Recent Progress Patient-Stated? Author Medication Management General On track( 023 11:40 AM CDT) No Sheridan Ng, ALFREDO Note: Expected end date: Ongoing Interventions: Take all medications as prescribed Let your doctor know right away about any changes in your medications Make sure to request a refill of your medication at least one week prior to your last dose documented as of this encounter Visit Diagnoses Not on filedocumented in this encounter Care Teams Hand Surgeon Relationship Specialty Start Date End Date Major Kraft MD PCP - General 07/01/21 06/08/22 Eric Oconnell MD Hospitalist 10/10/21 documented as of this encounter
--- OUTSIDE RECORDS SUMMARY | 2024-10-19 20:13 | XMS_ITS | Encounter Summary ---
Author Organization [facility] Address [address] [place] [address] Care Team Providers Care Speech Language Pathology Assistant Name Role Phone Major Kraft MD Primary Care Provider + [phone] Eric Oconnell MD Unavailable + [phone] Reason for Visit * Reason Comments Lower Extremity Problem bibems as transf er from OSH for left hip fracture. Per EMS leg is shortened, externally rotated. Pt believes he fell several days ago but doesn't remember falling. EMS reports hx drug and alcohol abuse, cirrhosis, liver failure. AOx4 on arrival, report 07/04 pain * Auth/Cert Specialty Diagnoses / Procedures Referred By Rod t Referred To Contact Referral ID Status Reason Start Date Expiration Date Visits Re quested Visits Authorized [id number] 1 1 Encounter Details Date Type Department Care Team (Late st Contact Info) Description 12/17/2021 10:25 PM ATHLETIC COACH - 12/20/2021 5:58 PM ATHLETIC COACH Hospital Encounter [facility] [address] [place] [address] Lima Thompson MD [address] [place] [address] David Burns MD [address] [place] [address] Karsten Waddell DO [address] [facility] [address] [place] [id number] Surgery Orthopedics Discharge Disposition: Detention Facility Social History Tobacco Use Types Packs/Day Years [...] Sign Reading Time Taken Comments Blood Pressure 135/102 12/20/2021 7:46 AM ATHLETIC COACH Pulse 102 12/20/2021 7:46 AM ATHLETIC COACH Temperature 36.7 ??C (98.1 ??F) 12/20/2021 7:46 AM CS T Respiratory Rate 20 12/20/2021 7:46 AM ATHLETIC COACH Oxygen Saturation 96% 12/20/2021 7:46 AM ATHLETIC COACH Inhaled Oxygen Concentration - - Weight 72.6 kg (160 lb) 12/17/2021 10:42 PM ATHLETIC COACH Height 170.2 cm (5' 7 ) 12/17/2021 10:42 PM ATHLETIC COACH Body Mass Index 25.06 12/17/2021 10:42 PM ATHLETIC COACH documented in this encounter Functional Status Functional [...] No 12/18/2021 documented as of this encounter Discharge Summaries * Efe Thorpe MD - 12/20/2021 6:45 AM CST Images from the original note were not included. ORTHOPAEDIC DISCHARGE SUMMARY NAME: Lukas Diaz DATE: 1985 ADMIT DATE: 12/17/2021 DISCHARGE DATE: 12/20/21 ADMITTING PHYSICIAN: Karsten Waddell DO ATTENDING PHYSICIAN: Karsten Waddell DO PCP: Major Kraft MD Admission Diagnosis: Principal Problem: Closed fracture of left hip Active Problems: Hepatic cirrhosis Chronic left hip pain Tachycardia Elevated liver enzymes Vitamin D deficiency Nicotine abuse Discharge Diagnoses: Principal Problem: Closed fracture of left hip Active Problems: Hepatic cirrhosis Chronic left hip pain Tachycardia Elevated liver enzymes Vitamin D deficiency Nicotine abuse Past Medical History: Past Medical History: Diagnosis Date ??? Hypertension Diagnostic Studies: XR FEMUR LEFT 2VW Result Date: 12/18/2021 FINDINGS/IMPRESSION: Comminuted moderately displaced subcapital fracture of the left femoral neck. There is 1.3 cm interposition of the femoral head and the femoral shaft at the fracture line. The femoral head appears well positioned within its respective acetabula. Soft tissue swelling is noted. Dictated by Stanley Joyce MD (advanced manufacturing vice president). Dr. ALO Anton MD, [facility] havepersonally reviewed and interpreted this examination/study. This report was electronically signed by ALO VAZQUEZ MD, [facility] on 12/18/2021 10:[address] HIP LEFT WO CONTRAST Result Date: 12/18/2021 Impression: Displaced left femoral neck fracture, age-indeterminate. Cannot exclude a small posterior-superior acetabular wall fracture. See comments above. Report drafted by Shaun Marie (resident) Dr. VALENTE Anton MD have personally reviewed and interpreted this examination/study. This report was electronically signed by VALENTE MCDUFFIE MD on 12/18/2021 8:00 AM . XR PELVIS W LEFT HIP 2VW Result Date: 12/18/2021 IMPRESSION: Superolaterally displaced fracture of the left femoral neck. Report dictated by Shama Landry M.D. (advanced manufacturing vice president). I, Dr. ALO VAZQUEZ MD, [facility] have personally reviewed and interpreted this examination/study. This report was electronically signed by ALO VAZQUEZ MD, [facility] on 12/18/2021 10:05 AM . Procedures: none Consults: PT/OT/SW Hospital Course: Lukas was admitted on 12/17/2021 for the above medical evaluation given the finding of a chronic left femoral neck frThe patient had no complications on the floor. The patient's pain was controlled. The patient tolerated a diet, and worked with physical therapy. Physical therapy recommends discharge home when ready. The patient was discharged home in excellent condition on 12/20/21. The patient with follow up with Dr. Burns in 3 weeks. Discharge Exam: GEN: NAD, resting in bed CV/Pulm: normal sinus rhythm on monitor, unlabored breathing GI: abdomen non-tender MSK: Left Lower Extremity: hip mildly tender to palpation; EHL/FHL/GS/AT intact distally, wiggles ankle and foot and great toe; SILT distally in all dermatomal distributions; toes warm and well perfused; palpable DP/PT pulses Condition at discharge: good Disposition: Home Discharge Medications: Current Discharge Medication List START taking these medications Instructions Authorizing Provider calcium 500 MG tablet Take 1 (one) tablet by mouth 2 times daily with morning and evening meal for 90 days MELLISA Chinchilla multivitamin daily tablet Take 1 (one) tablet by mouth once daily for 90 days MELLISA Chinchilla traMADol 50 MG tablet Commonly known as: Ultram Quantity Dispensed: 28 tablet Take 1 (one) tablet by mouth every 6 hours as needed Efe Thorpe MD vitamin D (ergocalciferol) 1.25 mg (50,000 UT) capsule Commonly known as: Drisdol Quantity Dispensed: 4 capsule Start taking on: December 26, 2021 Take 1 (one) capsule by mouth every 7 days for 90 days MELLISA Chinchilla CONTINUE taking these medications which have NOT CHANGED Instructions Authorizing Provider baclofen 10 MG tablet Commonly known as: Lioresal Take 10 mg by mouth 3 times daily May cause drowsiness. busPIRone 5 MG tablet Commonly known as: Buspar Take 5 mg by mouth 2 times daily folic acid 1 MG tablet Commonly known as: Folvite Take 1 mg by mouth once daily lactulose 10 GM/15ML solution Commonly known as: Chronulac Take 5 mL by mouth 3 times daily Lasix 20 MG tablet Generic drug: furosemide Take 60 mg by mouth once daily mirtazapine 30 MG tablet Commonly known as: Remeron Take 30 mg by mouth at bedtime pantoprazole EC 40 MG tablet Commonly known as: Protonix Take 40 mg by mouth 2 times daily pregabalin 75 MG capsule Commonly known as: Lyrica Take 75 mg by mouth 2 times daily propranolol 10 MG tablet Commonly known as: Inderal Take 10 mg by mouth 2 times daily ramelteon 8 MG tablet Commonly known as: Rozerem Take 8 mg by mouth at bedtime rifAXIMin 550 MG tablet Commonly known as: Xifaxan Quantity Dispensed: 60 tablet Take 1 (one) tablet by mouth 2 times daily Amos Pabon MD * spironolactone 100 MG tablet Commonly known as: Aldactone Take 100 mg by mouth once daily * spironolactone 50 MG tablet Commonly known as: Aldactone Take 50 mg by mouth once daily temazepam 7.5 MG capsule Commonly known as: Restoril Take 7.5 mg by mouth at bedtime * This list has 2 medication(s) that are the same as other medications prescribed for you. Read thedirections carefully, and ask your doctor or other care provider to review them with you. 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 Assistive device(s) Please use crutches/walker as indicated previously. OK to weight bear as tolerated on both of your legs. Weight bearing as tolerated Slowly increase the amount of weight you put on your legs as tolerated. Light activity Avoid any heavy activity until cleared at follow-up appointment. Do not drive while on narcotic pain medication and/or until cleared by orthopaedic surgeon at outpatient follow-up. Follow up with provider Order Specific Question Answer Comments Follow Up Instructions: Follow up with Dr. Burns in clinic in 4 weeks from discharge. Efe Thorpe MD Orthopaedic Surgery 12/20/21 6:45 AM ETIC COACH documented in this encounter Discharge Instructions * Discharge Instructions* Anastasia Chowdhury, MOUNTING INSPECTOR-BAG LOADER MACHINE OPERATOR - 12/19/2021 4:21 PM ATHLETIC COACH Images from the original note were not included. -Keep your scheduled follow up with your liver physician and primary care providers Orthopaedic Surgery follow up appointment for your left leg/hip with Dr. David Burns is scheduledon 12/31/2021 at 11:15am [facility], Level I-Orthopaedic Surgery [address] [place] [address] -You are weight bearing as tolerated to your left leg/foot when up -You may shower -No activity restrictions -For after hours orthopaedic emergency calls dial [phone] and page the orthopaedic surgery resident vector control specialist -Do not smoke cigarettes, vape, chew tobacco or use any nicotine products. Nicotine in any form will delay and can prevent healing. Patient Education Cigarette Smoking and Your Health [employer]: Risks to your health if you smoke: Nicotine and other chemicals found in tobacco and e-cigarettes can damage every cell in your body. Even if you are a light smoker, you have an increased risk for cancer, heart disease, and lung disease. If you are or have diabetes, smoking increases your risk for complications. Nicotine can affect an adolescent's developing brain. This can lead to trouble thinking, learning, or paying attention. Benefits to your health if you stop smoking: ?? You decrease respiratory symptoms such as coughing, wheezing, and shortness of breath. ?? You reduce your risk for cancers of the lung, mouth, throat, kidney, bladder, pancreas, stomach,and cervix. If you already have cancer, you increase the benefits of chemotherapy. You also reduce your risk for cancer returning or a second cancer from developing. ?? You reduce your risk for heart disease, blood clots, heart attack, and stroke. ?? You reduce your risk for lung infections, and diseases such as pneumonia, asthma, chronic bronchitis, and emphysema. ?? Your circulation improves. More oxygen can be delivered to your body. If you have diabetes, you lower your risk for complications, such as kidney, artery, and eye diseases. You also lower your risk for nerve damage. Nerve damage can lead to amputations, poor vision, and blindness. ?? You improve your body's ability to heal and to fight infections. ?? An adolescent can help his or her brain and body develop in a healthy way. Talk to your adolescent about all the health risks of nicotine. If you can, start talking about nicotine when your child is younger than 12 years. This may make it easier for him or her not to start using nicotine as a teenager or adult. Explain to him or her that it is best never to start. It can be hard to try to quitlater. Benefits to the health of others if you stop smoking: Tobacco is harmful to nonsmokers who breathe in your secondhand smoke. The following are ways the health of others around you may improve when you stop smoking: ?? You lower the risks for lung cancer and heart disease in nonsmoking adults. ?? If you are , you lower the risk for miscarriage, early delivery, low weight, and stillbirth. You also lower your baby's risk for SIDS, obesity, developmental delay, and neurobehavioral problems, such as ADHD. ?? If you have children, you lower their risk for ear infections, colds, pneumonia, bronchitis, andasthma. Follow up with your doctor as directed: Write down your questions so you remember to ask them during your visits. For support and more information: ?? [employer] [address] [facility] , [place] Phone: Phone: Web Address: www.lung.org ?? Smoke[employer].gov Phone: Web Address: www.[employer].gov ?? Copyright [employer] 2020 Information is for End User's use only and may not be sold, redistributed or otherwise used for commercial purposes. All illustrations and images included in CareNotes?? are the copyrighted property of [employer]. or [employer] The above information is an range aide only. It is not intended as medical advice for individual conditions or treatments. Talk to your doctor, nurse or pharmacist before following any medical regimen to see if it is safe and effective for you. Patient Education Vitamin D Deficiency WHAT YOU NEED TO KNOW: What is vitamin D deficiency? Vitamin D deficiency is a low level of vitamin D in your body. Vitamin D helps your body absorb calcium from foods. Your body makes vitamin D when your skin is exposed to sunlight. You can also get vitamin D from certain foods. Most of the vitamin D in your body comes from sunlight exposure. What increases my risk for vitamin D deficiency? ?? Low amount of sun exposure ?? Low intake of foods that contain vitamin D ?? Having dark skin ?? Age older than 65 ?? or ?? Infants who are breastfed ?? Inability to absorb vitamin D from food ?? Obesity ?? Use of certain medicines such as antiseizure, steroid, or antifungal medicines What are the signs and symptoms of vitamin D deficiency? Low levels of vitamin D can lead to weak and brittle bones that are more likely to fracture. You may not have any signs and symptoms, or you may have any of the following: ?? Bone pain or discomfort in your lower back, pelvis, or legs ?? Muscle aches and weakness ?? Low back pain in women ?? Poor growth, irritability, and frequent respiratory tract infections in infants ?? Deformed bones and slow growth in children How is vitamin D deficiency diagnosed and treated? Blood tests will be done to measure the amount of vitamin D in your blood. Your healthcare provider may give you high doses of vitamin D for 8 to 12 weeks to increase your levels. Your levels will then be rechecked. If your levels are still low, you will need to take vitamin D supplements for another 8 weeks. After your levels have gone back to normal, you may need to continue to take a vitamin D supplement. How much vitamin D do I need each day? The amount of vitamin D you need depends on your age. You may need more than the recommended amounts below if you take certain medicines or you are obese. Ask your healthcare provider how much vitamin D you need. ?? Infants up to 1 year of age: 400 international units (IU) ?? Children 1 year and older: 600 IU ?? Adults aged 19 to 70 years old: 600 IU ?? Adults older than 70 years: 800 IU How can I help prevent vitamin D deficiency? ?? Eat foods that are high in vitamin D. Fatty fish such as mackerel, canned tuna and sardines, andsalmon are good sources of vitamin D. Eggs, almonds, and meat such as liver are also good sources. Certain foods such as milk, juice, and cereal are fortified with vitamin D. ?? Give your breastfed a vitamin D supplement of 400 IU each day. ?? Take vitamin D supplements as directed. High doses of vitamin D can be toxic. Your healthcare provider will tell you how much vitamin D you should take each day. Vitamin D is best absorbed when taken with food. ?? Expose your skin to sunlight as directed. Ask your healthcare provider how you can safely exposeyour skin to sunlight and for how long. Too much exposure to sunlight can cause skin cancer. When should I call my doctor? ?? You continue to have symptoms, or your symptoms get worse. ?? You think you took too much of a vitamin D supplement, and you have nausea, vomiting, or a headache. ?? You have questions or concerns about your condition or care. CARE AGREEMENT: You have the right to help plan your care. Learn about your health condition and how it may be treated. Discuss treatment options with your healthcare providers to decide what care you want to receive. You always have the right to refuse treatment. The above information is an range aide only. It is not intended as medical advice for individual conditions or treatments. Talk to your doctor, nurse or pharmacist before following any medical regimen to see if it is safe and effective for you. ?? Copyright [employer] 2020 Information is for End User's use only and may not be sold, redistributed or otherwise used for commercial purposes. All illustrations and images included in CareNotes?? are the copyrighted property of [employer].D.A.M[employer] Inc[employer] or [employer] Patient Education Hip Pain WHAT YOU NEED TO KNOW: What causes hip pain? Hip pain can be caused by a number of conditions, such as bursitis, arthritis, or muscle or tendon strain. You may have swelling in the fluid-filled sacs that protect your muscles and tendons. Hip pain can also be caused by a lower back problem. Hip pain may be caused by trauma, playing sports, or running. Pain may start in your hip and go to your thigh, buttock, or groin. How can I manage hip pain? You may need x-rays to make sure there are no broken bones that need to be treated. ?? Rest your injured hip so that it can heal. You may need to avoid putting any weight on your hip for at least 48 hours. Return to normal activities as directed. ?? Ice the injury for 20 minutes every 4 hours, or as directed. Use an ice pack, or put crushed icein a plastic bag. Cover it with a towel to protect your skin. Ice helps prevent tissue damage and decreases swelling and pain. ?? Elevate your injured hip above the level of your heart as often as you can. This will help decrease swelling and pain. If possible, prop your hip and leg on pillows or blankets to keep the area elevated comfortably. ?? NSAIDs , such as ibuprofen, help decrease swelling, pain, and fever. This medicine is available with or without a doctor's order. NSAIDs can cause stomach bleeding or kidney problems in certain people. If you take blood thinner medicine, always ask your healthcare provider if NSAIDs are safe foryou. Always read the medicine label and follow directions. ?? Maintain a healthy weight. Extra body weight can cause pressure and pain in your hip, knee, and ankle joints. Ask your healthcare provider how much you should weigh. Ask him or her to help you create a weight loss plan if you are overweight. ?? Use assistive devices as directed. You may need to use a cane or crutches. Assistive devices help decrease pain and pressure on your hip when you walk. Ask your healthcare provider for more information about assistive devices and how to use them correctly. When should I seek immediate care? ?? Your pain gets worse. ?? You have numbness in your leg or toes. ?? You cannot put any weight on or move your hip. When should I contact my healthcare provider? ?? You have a fever. ?? Your pain does not decrease, even after treatment. ?? You have questions or concerns about your condition or care. CARE AGREEMENT: You have the right to help plan your care. Learn about your health condition and how it may be treated. Discuss treatment options with your healthcare providers to decide what care you want to receive. You always have the right to refuse treatment. The above information is an range aide only. It is not intended as medical advice for individual conditions or treatments. Talk to your doctor, nurse or pharmacist before following any medical regimen to see if it is safe and effective for you. ?? Copyright [employer] 2020 Information is for End User's use only and may not be sold, redistributed or otherwise used for commercial purposes. All illustrations and images included in CareNotes?? are the copyrighted property of [employer].A.M[employer] Inc[employer] or [employer] ETIC COACH documented in this encounter Medications at Time of Discharge Medication Sig Dispensed Refills Start Date End Date baclofen (LIORESAL) 10 MG tablet Take 2 (two) tablets by mouth 2 times daily May cause drowsiness. busPIRone (BUSPAR) 5 MG tablet Take 1 (one) tablet by mouth 2 times daily folic acid (FOLVITE) 1 MG tablet Take 1 (one) tablet by mouth once daily propranolol (INDERAL) 10 MG tablet Take 1 (one) tablet by mouth 2 times daily calcium 500 MG tablet Take 1 (one) tablet by mouth 2 times daily with morning and evening meal for 90 days 12/19/2021 03/19/2022 furosemide (LASIX) 20 MG tablet Take 60 mg by mouth once daily 02/22/2022 lactulose (CHRONULAC) 10 GM/15ML solution Take 5 mL by mouth 3 times daily 06/29/2023 mirtazapine (REMERON) 30 MG tablet Take 30 mg by mouth at bedtime 02/19/2023 multivitamin daily tablet Take 1 (one) tablet by mouth once daily for 90 days 12/20/2021 03/20/2022 pantoprazole EC (PROTONIX) 40 MG tablet Take [...] 7.5 mg by mouth at bedtime 03/05/2022 traMADol (ULTRAM) 50 MG tablet Take 1 (one) tablet by mouth every 6 hours as needed 28 tablet 12/19/2021 11/17/2023 vitamin D, ergocalciferol, (DRISDOL) 1.25 MG (98602 UT) capsule Take 1 (one) capsule by mouth every 7 days for 90 days 4 capsule 2 12/26/2021 03/26/2022 documented as of this encounter Progress Notes * Roxana Lancaster RN - 12/20/2021 2:55 PM CST Report called to tolleson ETIC COACH * Gail Miller RN - 12/20/2021 9:04 AM CST Facility Transfer Note Level of Care: SNF Facility Name: (include name of person confirming admission): [facility] Made Aware of Special Needs (if applicable): RN Call Report to:[phone] Fax D/C Orders to:[phone] Transportation (company and number): [employer] [phone] Certificate of Medical Necessity rationale: Yes Date/time of transfer: 12-20 Accepting MD and contact #: Completed and Signed [id number] (if applicable): Family/Other Notified of Transfer (name/phone): Authorization Skilled Care: Authorization for Transportation: Verified Qualifying Stay(Skilled Only): NOT APPLICABLE Comments: Name/Phone number: Gail Miller RN [phone] ETIC COACH * Gail Miller RN - 12/19/2021 3:19 PM CST [facility] Details Fax ? Service Provider Info: [facility] [address] [facility] [address] CM phoned Ericka [phone] Left message with callback information Anticipate discharge 12-20 Gail Miller RN [phone] Care Coordination Nurse Natural Resource Officer ETIC COACH * Roxana Lancaster RN - 12/19/2021 2:53 PM CST Pt back to bed resting quietly ETIC COACH * Maria D Jiménez OT - 12/19/2021 1:46 PM CST [facility] Rehabilitation Occupational Therapy Progress Note Patient: Lukas Diaz Med Record Number: [id number] Date of : 1985 Age: [age] year old Face Mask: Therapist wearing procedural mask and eyewear throughout. Tech: No Discharge Recommendation: Patient will benefit from multidisciplinary inpatient therapies. Precautions: Weight Bearing Status: Upper Extremity;Lower Extremity Weight Bearing: WBAT Subjective: Why do I get these muscle spasms? At start of therapy session, patient found in patient bedside chair and with chair alarm on. Pain: Patient has 7/10 pain in L hip. Follow-up for pain: Yes, Informed nurse/physician about pain issue Activities of Daily Living Feeding: hand to mouth intact Grooming/Bathing: not tested this date Upper Extremity Dressing: Moderate assist to manage gown Lower Extremity Dressing: Minimal assist to adjust L sock Toileting/Transfers: not tested this date Mobility: Assist device: Wheeled Walker Rolling: not tested Supine to/from Sit: Moderate assist for management of LLE Sit to/from Stand: Moderate assist Bed to/from Chair: Moderate assist Balance: Static Sitting: good Dynamic Sitting: fair plus Static Standing: fair minus Dynamic Standing: poor plus Vitals: (*Assess the 3 levels of oxygen saturations both for room air and 02 unless rest on room air is 88% or less). Rest BP: HR: SpO2 SpO2 Room Air L 02 Ex/Gait/Activity Without 02 BP: HR: SpO2 Room Air Ex/Gait/Activity With 02 BP: HR: SpO2 L 02 Post Activity BP: HR: SpO2 SpO2 L 02 Room Air Observations: No c/o dizziness or SOB throughout. Activity tolerance: poor plus Cognitive/Perceptual: A&Ox3. Pt is able to make needs known, demonstrates decreased safety awareness and insight, and follows one-step commands 100% of the time. Pt with questions this date regarding mattresses, offloading of hip, and reason for chills and muscle spasms this date. Treatment/Therapeutic Exercise: Treatment session this date focused on ADL training Adaptive equipment training Functional transfer training Endurance training Bed mobility Safety awareness EDUCATION: While performing mobility, exercise and self care, Patient was instructed in: Functional mobility training/weight bearing status, Safety awareness/fall precaution, Discharge plan, Self care training and Use of adaptive equipment Presented to patient who demonstrates Fair understanding of instructions given. Equipment Issued: none Update Treatment Plan/Goals : Pt continues to benefit from skilled OT to improve independence with activities of daily living, increase strength, endurance, range of motion, and decrease pain. Short Term Goals: Patient will perform grooming In chair, With stand by assist and With setup Patient will perform lower extremity dressing With mod assist Patient will transfer to bedside commode With min assist Patient will tolerate treatment 25 minutes and with good endurance Education: good, safety education and adaptive equipment Automobile Glass Technician Goal:Patient to discharge to appropriate next level of inpatient care If patient is discharged from the facility, this note serves as a discharge note if further occupational therapy visits did not occur. Following therapy session, patient left in bed, with bed alarm on, with call light within reach andwith Nahed FUENTES aware. ETIC COACH * Roxana Lancaster RN - 12/19/2021 1:10 PM CST Pt up in chair . Medicated for pain ETIC COACH * Marleny Vasquez, PT - 12/19/2021 11:48 AM CST [facility] Physical Medicine and Rehabilitation PhysicalTherapy Progress Note Patient: Lukas Diaz [facility] Record Number: [id number] Date of : 1985 Age: [age] year old Face Mask: Therapist wore procedural mask and eye protection during entire treatment session. Discharge Recommendation: Patient will benefit from multidisciplinary inpatient therapies (return to previous fpc) Subjective: It hurts eveywhere Mental Status: Alert and agreeable to PT with min cues for encouragement At start of therapy session, patient found in bed and with bed alarm on. Pain: Patient has 10/10 pain in all over Follow-up for pain: Yes, Informed nurse/physician about pain issue Weight Bearing Status: WBAT B LE's Mobility: Rolling: Minimal assist Supine to Sit:Minimal assist for the left LE Sit to Supine: not tested due to patient up in chair at end of treatment Sit to Stand:Moderate assist Bed to Chair: Moderate assist with the wheeled walker Gait: Device:Wheeled Walker Assistance: Moderate assist Distance: 4 steps from bed to chair Deviations: Max cues for sequencing, poor weight shifting to the left LE during stance with initialassist for advancing the LE, cues for upright posture, cues for management of the wheeled walker Balance: Static Sitting: good minus Dynamic sitting: good minus Static Standing: poor plus Dynamic Standing: poor plus Stairs : N/A Vitals: No signs of distress or patient c/o shortness of breath/dizziness during treatment. Activity Tolerance: Patient's activity tolerance: poor plus due to pain Treatment/therapeutic Exercise: Gait training with the wheeled walker. Transfer training. Bed mobility training EDUCATION: While performing PT, Patient was instructed in:Functional mobility training/weight bearing status, Safety awareness/fall precaution and Discharge plan Patient demonstrated Fair understanding of instructions given. GOALS: Short Term Goals: Goal Formation With patient Patient will perform bed mobility: Stand By Assist Patient will transfer sit to/from stand: Stand By Assist Patient will transfer bed to/from chair: Stand By Assist Patient will ambulate 25 feet with Stand By Assist and appropriate AD Skilled Nursing Goal: Patient to discharge to appropriate next level of inpatient care. Update Treatment Plan: Continue per current plan of care If patient is discharged from the facility, this note serves as a discharge note if further physical therapy visits did not occur. Following therapy session, patient left in patient bedside chair, with chair alarm on, with call light within reach and with RNKandy aware. ETIC COACH * Colleen Mosqueda RN - 12/19/2021 10:30 AM CST Clarita Biggs, Volcanologist and myself at bedside to discuss missing belongings. Patient states he was contacted by [facility] and they state they have his laptop and wallet. Per patient, his father will pickling tank operator these items. ETIC COACH * Marc Gamble MD - 12/19/2021 7:00 AM CST [facility] Orthopedic Surgery Progress Note Admit Date: 12/17/2021 10:25 PM December 19, 2021 Subjective Patient seen and examined on rounds this am. No acute events overnight. Pain controlled. Data BP 142/91 Pulse 94 Temp 98.4 ??F (36.9 ??C) Resp 18 Ht 5' 7 (1.702 m) Wt 160 lb (72.6 kg) SpO2 93%BMI 25.06 kg/m2Temp (24hrs), Av.5 ??F (36.9 ??C), Min:98 ??F (36.7 ??C), Max:98.8 ??F (37.1 ??C) Labs Recent Labs Component Name 12/19/21 0153 12/17/21 2258 WBC 7.5 10.1 HGB 13.0 12.3 HCT 39.1 35.2 PLTCOUNT 198 192 Recent Labs Component Name 12/19/21 0135 12/17/21 2257 NA 134* 131* POTASSIUM 3.9 4.4 CL 100 94* CO2 23 25 BUN 9 10 CREATININE 0.56* 0.44* GLUCOSE 95 90 Recent Labs Component Name 12/17/21 2311 10/01/21 1138 INR 1.2 1.2 Cultures Microbiology Results (Displays last 21 days for this encounter ONLY) Procedure Component Value - Date/Time SARS-COV-2 (COVID-19)+INFLU A+B PCR RAPID [[id number]] (Normal) Collected: 12/18/21416 Lab Status: Final result Specimen: Microbiology from Nasopharyngeal Updated: 12/18/21643 COVID-19 PCR Not detected Influenza A Rapid MISAEL Not Detected Influenza B MISAEL Rapid Not Detected Narrative: Influenza assay performed by Nucleic Acid Amplification. Results do not exclude the possibility of a mixed viral infection. NOTE: Detecting and identifying specific viral nucleic acids from individuals exhibiting signs and symptoms of respiratory infection aids in the diagnosis of respiratory infection, if used in conjunction with other clinical and laboratory findings. The results of this test should not be used as thesole basis for diagnosis, treatment, or patient management decisions. This nucleic acid amplification assay performance was validated by [facility]. This test has been authorized by the [...] the Act, 21 U.S.C 360bbb-3 (b)(1), unless theauthorization is terminated or revoked sooner. Fact Sheets for this EUA assay are available upon request. Physical Exam General appearance: No distress, responsive Left lower extremity: Able to flex/extend great toe, able to plantarflex/dorsiflex ankle, Sensationintact distally, Toes warm, well perfused. Assessment/Plan Patient Active Problem List: Hepatic cirrhosis Hip pain Tachycardia Closed fracture of left hip Elevated liver enzymes Lukas Diaz is a 36 year old male with the following diagnoses: # chronic L FNF 1. left lower extremity: NWB 2. No plan for operative intervention for this chronic fracture 3. PT/OT 4. Pain Control 5. Bowel regimen 6. Anticoagulation plan at discharge: not indicated 7. Will continue to follow, please page with questions. DO NOT USE I-MD Secure Chat. Marc Gamble MD 12/19/2021 7:05 AM ETIC COACH * Colleen Mosqueda RN - 12/18/2021 3:49 PM CST Unable to locate patient's wallet and laptop upon transfer. Belongings were locked in locker but locker not identified in charting. Some of his belongings made it to bedside. Used to lee to look in all lockers, remaining items not found. Contacted pre/post to inquire about belongings. Pre/post willcontact RN that surveyed his belongings. ETIC COACH * Radha Lutz, PharmD - 12/18/2021 12:50 PM CST [facility] Medication History Note The current home/prior to admission (WINDOWS ADMINISTRATOR) medication list has been reviewed by a pharmacist. Outpatient medications were clarified with pre-packed medication cards from [facility]. Please note all medications may NOT have been clarified pending available information at the time. Current Updated Home Medications: Medications Prior to Admission Medication Sig Action Taken baclofen (LIORESAL) 10 MG tablet Take 10 mg by mouth 3 times daily Added busPIRone (BUSPAR) 5 MG tablet Take 5 mg by mouth 2 times daily dronabinol (MARINOL) 2.5 MG capsule Take by mouth 2 times daily Added folic acid (FOLVITE) 1 MG tablet Take 1 mg by mouth once daily furosemide (LASIX) 20 MG tablet Take 60 mg by mouth once daily Adjusted dose from 80 mg lactulose (CHRONULAC) 10 GM/15ML solution Take 5 mL by mouth 3 times daily Unsure if taking (due toliquid formulation) mirtazapine (REMERON) 30 MG tablet Take 30 mg by mouth at bedtime pantoprazole EC (PROTONIX) 40 MG tablet Take 40 mg by mouth 2 times daily pregabalin (LYRICA) 75 MG capsule Take 75 mg by mouth 2 times daily Added propranolol (INDERAL) 10 MG tablet Take 10 mg by mouth 2 times daily ramelteon (ROZEREM) 8 MG tablet Take 8 mg by mouth at bedtime Added rifAXIMin (XIFAXAN) 550 MG tablet Take 1 (one) tablet by mouth 2 times daily spironolactone (ALDACTONE) 100 MG tablet Take 100 mg by mouth once daily spironolactone (ALDACTONE) 50 MG tablet Take 50 mg by mouth once daily Patient takes a total dose of 150 mg daily temazepam (RESTORIL) 7.5 MG capsule Take 7.5 mg by mouth at bedtime Added Medications removed: Gabapentin - takes pregabalin instead Melatonin - takes ramelteon instead Ondansetron Tramadol Please note that this only serves as an updated medication list and all medical teams should continue to manage the patient as deemed most appropriate. If any questions about the home medication listarise please do not hesitate to contact the [facility] pharmacy dept ([phone]). Thank you. Assessment Completed by: Radha Lutz PharmD 12/18/2021 12:46 PM ETIC COACH * Gail Miller RN - 12/18/2021 11:20 AM CST A Chart Review has been conducted by Case Management. Anticipated level of care at discharge: Home Discharge Plan:Discharge needs pending response to clinical treatment and therapies recommendations. Basic Needs Assessment (BNA) Score: 9 Anticipated Discharge Date: 12/20/21 PCP: Major Kraft MD Per nursing assessment 36 yo bibems as transfer from OSH for left hip fracture. Per EMS leg is shortened, externally rotated. Pt believes he fell several days ago but doesn't remember falling. EMS reports hx drug and alcohol abuse, cirrhosis, liver failure Pt had recently discharged from [facility] 12-16. Pt would like to return if able. Referral to Transportation (who): Pending discharge disposition Stave Cutting Supervisor/Support: Family and friends Stave Cutting Supervisor person: Home/Functional Status: Functional and Cognitive Status Is person deaf or have serious hearing difficulty?: No Is person blind or have serious difficulty seeing?: No Does person have serious difficulty walking/climbing stairs?: Yes Does person have difficulty dressing/bathing?: Yes Does person have difficulty doing errands alone?: Yes Does person have difficulty concentrating/remembering/making decisions?: No Equipment with patient: None Assistive Devices: None ?. Will continue to follow. For any questions or needs please 7059 contact: Natural Resource Officer Name/Phone number: Gail Miller RN' ETIC COACH * Maria D Jiménez OT - 12/18/2021 11:17 AM CST [facility] Physical Medicine and Rehabilitation Occupational Therapy Initial Evaluation Note Co-eval with PT 2/2 unknown level of assist Patient: Lukas Diaz [facility] Record Number: [id number] Date of : 1985 Age: [age] year old Face Mask: Therapist wearing procedural mask and eyewear throughout. Tech: No Discharge Recommendation: Return to previous facility with therapy services In addition to the 1:1 evaluation of the patient, additional eval time was spent completing the chart review prior to the assessment, completing the multidisciplinary plan of care and education plan post evaluation and communicating results of the eval to other treatment team members. Plan: ADL training Adaptive equipment training Functional transfer training Endurance training Bed mobility Safety awareness Physician Orders: Evaluation and Treat Precautions: Weight Bearing Status: Upper Extremity;Lower Extremity Weight Bearing: WBAT DIAGNOSIS: Patient Active Problem List: Hepatic cirrhosis Hip pain Tachycardia Closed fracture of left hip Elevated liver enzymes Past Medical History: Diagnosis Date ??? Hypertension SUBJECTIVE: My muscles aren't attached. I can feel it. PATIENT GOALS: Return to previous fpc Home living: Type of Residence[facility] Home Structure: One Story Primary Bedroom: First Floor Primary Bathroom: First Floor Equipment At Home: Walker-4 Wheeled with Seat Prior Function: Mobility: Ambulate-In Community;Independent (Rollator use as needed) Fallen Within 6 Mos: 1 Have Help at Home?: Yes, there is help at home now Vision: No impairment Who manages medications?: staff At start of therapy session, patient found in bed and with bed alarm on. Pain: Patient has 7/10 pain in L hip prior to mobility, 10/10 with mobility. Follow-up for pain: Yes, Informed nurse/physician about pain issue OBJECTIVE: General Appearance: Pt is a 36 year old male resting comfortably, NAD. Precautions: IV's: Peripheral line Edema: None noted Vitals: (*Assess the 3 levels of oxygen saturations both for room air and 02 unless rest on room air is 88% or less). Rest BP: 136/90 HR: 89 SpO2 SpO2 98% Room Air L 02 RA Ex/Gait/Activity Without 02 BP: HR: SpO2 Room Air Ex/Gait/Activity With 02 BP: HR: SpO2 L 02 Post Activity BP: HR: SpO2 SpO2 L 02 Room Air Observations: No c/o dizziness or SOB throughout. Cognitive: A&Ox3. Pt is able to make needs known, demonstrates decreased safety awareness and insight, and follows one-step commands 100% of the time with cues for encouragement. Perceptual: All aspects intact Upper extremity range of motion: BUE AROM WFL Upper extremity strength: BUE WFL Tone: Normal Coordination: BUE serial opposition intact Sensation: BUE light touch intact Patient's activity tolerance: poor plus - limited by pain FUNCTIONAL MOBILITY Not tested Independent Stand by Assist Minimal Moderate Maximum Dependent Rolling x Supine to/from sit X - to manage LLE during sit to sup X - to manage LLE during sup to sit Sit to/from Standing x2 Bed to/from chair x Functional mobility of ambulation to sink/bathroom with: Min A to take 2 side steps toward HOB. A gait belt and non-slip socks were used for all out of bed mobility. Balance: Static Sitting: good minus Dynamic Sitting: good minus Static Standing: poor plus Dynamic Standing: poor plus Activities of Daily Living Feeding: hand to mouth intact Grooming/Bathing: not tested this date Upper Extremity Dressing: Moderate assist to manage gown Lower Extremity Dressing: Maximal assist to don L sock. R sock already donned upon entry. Toileting/Transfers: not tested - pt declined need Splint Issued/Checked: none TREATMENT / EDUCATION / EVALUATION: Purpose of Occupational Therapy evaluation explained. While performing mobility, exercise and self care, Patient was instructed in: Functional mobility training/weight bearing status, Safety awareness/fall precaution, Discharge plan, Self care training and Use of adaptive equipment Presented to patient who demonstrates Fair understanding of instructions given. INFORMED CONSENT TO TREATMENT: Plan of care including recommended therapy, goals and frequency, as well as potential risks and benefits of treatment/assessment explained to patient. Patient understands and agrees to proceed. ASSESSMENT: Functional performance limited due to: limited activities of daily living, pain, decreased mobility, endurance and decreased safety awareness, Patient continues to benefit from skilled Occupational Therapy to achieve the following functional goals. and Equipment Issued: gait belt Nurse and PT contacted regarding patient status and/or discharge plan. Short Term Goals: Patient will perform grooming In chair, With stand by assist and With setup Patient will perform lower extremity dressing With mod assist Patient will transfer to bedside commode With min assist Patient will tolerate treatment 25 minutes and with good endurance Education: good, safety education and adaptive equipment Automobile Glass Technician Goal: Patient to discharge to appropriate next level of inpatient care If patient is discharged from the facility, this note serves as a discharge summary if further occupational therapy visits did not occur. Following therapy session, patient left in bed, with bed alarm on, with call light within reach andwith RNSangeetha aware. ETIC COACH * Marleny Vasquez, PT - 12/18/2021 11:17 AM CST [facility] Physical Medicine and Rehabilitation Physical Therapy Initial Evaluation Note Patient: Lukas Diaz Med Record Number: [id number] Date of : 1985 Age: [age] year old Face mask: Therapist wore procedural mask and eye protection during entire treatment session. Co-eval with OT due to pain, unknown level of assist Discharge Recommendation: Return to previous nursing facility with facility therapy services. In addition to the 1:1 evaluation of the patient, additional eval time was spent completing the chart review prior to the assessment, completing the multidisciplinary plan of care and education plan post evaluation and communicating results of the eval to other treatment team members. Nurse contacted regarding patient status and/or discharge plan. Physician Orders: Evaluation and Treat PRECAUTIONS: Fall, WBAT B LE's Activity Level as tolerated DIAGNOSIS: Patient Active Problem List: Hepatic cirrhosis Hip pain Tachycardia Closed fracture of left hip Elevated liver enzymes Past Medical History: Diagnosis Date ??? Hypertension SUBJECTIVE: It just hurts PATIENT GOALS: Return to previous fpc Home living: Type of Residence[facility] Home Structure: One Story Primary Bedroom: First Floor Primary Bathroom: First Floor Equipment At Home: Walker-4 Wheeled with Seat Prior Function: Mobility: Ambulate-In Community;Independent (Rollator use as needed) Fallen Within 6 Mos: 1 Have Help at Home?: Yes, there is help at home now Vision: No impairment Who manages medications?: staff At start of therapy session, patient found in bed and with bed alarm on Pain: Patient has 7/10 pain in the left hip, increasing to 10/10 with mobility Follow-up for pain: Yes, Informed nurse/physician about pain issue OBJECTIVE: General Appearance: 36 year old male laying in the bed, NAD Precautions: IV's: Peripheral line Skin, Incisions, Edema: Mild edema in the left hip Vitals: (*Assess the 3 levels of oxygen saturations both for room air and 02 unless rest on room air is 88% or less). Rest BP: 136/90 HR: 89 Sp02 98% Room Air Observations: No signs of distress or patient c/o shortness of breath/dizziness during treatment. MENTAL STATUS: Alert and oriented times 4 DIRECTION FOLLOWING: Able to follow multi-step commands 100% with cues for encouragement ROM: WFL right LE grossly. Left lE ankle PF/DF and knee flexion/extension WFL, left hip flexion limited due to pain STRENGTH: Right LE 4+/5 grossly. Left LE ankle DF 4/5, knee extension 3+/5, hip flexion 2+/5 SENSATION: patient reports numbness/tingling in the left groin and medial thigh FUNCTIONAL MOBILITY Not Tested Not Applicable Independent Stand by Assist Minimal Moderate Maximum Dependent Rolling X Scooting X Sit to supine X for the left LE Supine to sit X for the left LE Sit to/from Stand X 2 Bed to/ chair X Observation: Patient required increased time for all functional mobility tasks with cues for encouragement and sequencing. BALANCE: Sitting Static: good minus Dynamic: good minus Standing Static: poor plus Dynamic: poor plus Observation: Patient required min assist for standing balance with the wheeled walker with minimal weight shifting through the left LE due to pain GAIT: Weight Bearing: WBAT Distance: 2 sidesteps to HOB Device: gait belt, non-slip socks and wheeled walker Assistance: Minimal assist Balance: Poor plus Steps: N/A Poor plus endurance Observation: Slow twila, decreased weight shifting to the left LE and poor left LE advancement during swing due to pain, cues for upright posture, cues for management of the wheeled walker ACTIVITY TOLERANCE: Patient's activity tolerance: poor plus TREATMENT/INTERVENTIONS: evaluation, bed mobility training, transfer training, gait training and monitoring of vitals EDUCATION: While performing PT, Patient was instructed in:Functional mobility training/weight bearing status, Safety awareness/fall precaution and Discharge plan Patient demonstrated Fair understanding of instructions given. INFORMED CONSENT TO TREATMENT: Plan of care including recommended therapy, goals and frequency, discussed with patient who understands and agrees to proceed. ASSESSMENT: Patient's functional performance presently limited due to: pain, medical condition, strength, endurance, bed mobility, transfers, gait, safety awareness and balance and Patient would benefit from additional Physical Therapy to achieve the following functional goals to enhance independence. Short Term Goals: Goal Formation With patient Patient will perform bed mobility: Stand By Assist Patient will transfer sit to/from stand: Stand By Assist Patient will transfer bed to/from chair: Stand By Assist Patient will ambulate 25 feet with Stand By Assist and appropriate AD Automobile Glass Technician Goal(s): Patient to discharge to appropriate next level of inpatient care Equipment Issued: gait belt Plan: If patient is discharged from the facility, this note serves as a discharge summary if further physical therapy visits did not occur. Following therapy session, patient left in bed, with bed alarm on, with call light within reach andwith Sangeetha FUENTES ETIC COACH * Kaila Pham RN - 12/18/2021 8:30 AM CST Report given to RN. All questions answered. ETIC COACH * Kaila Pham RN - 12/18/2021 7:53 AM CST Pt surgery cancelled. VSS. Pt being admitted to [facility]. Report will be called to RN ETIC COACH documented in this encounter H&P Notes * Geremias Tomas MD - 12/18/2021 1:00 AM CST Orthopaedic Surgery H&P Note Lukas Diaz 1985 [id number] Date of service: 12/18/2021 Chief Complaint: Chief Complaint Patient presents with ??? Lower Extremity Problem bibems as transfer from OSH for left hip fracture. Per EMS leg is shortened, externally rotated. Ptbelieves he fell several days ago but doesn't remember falling. EMS reports hx drug and alcohol abuse, cirrhosis, liver failure. AOx4 on arrival, report 9/10 pain Subjective: Lukas Diaz is a 36 year old male with PMH of alcoholic cirrhosis who presents to [facility] Emergency Department with ortho complaint of left hip pain. The patient does not recall any injury, but did remember a pop in his hip and had pain. Patient has been walking since this injury. He says that it hurts with movement and is better with rest. He denies any numbness or tingling and has no other complaints at this time. Past Medical History: Diagnosis Date ??? Hypertension No past surgical history on file. Current Facility-Administered Medications Medication ??? lactated ringers infusion Current Outpatient Medications Medication ??? busPIRone (BUSPAR) 5 MG tablet ??? ferrous sulfate 325 (65 FE) MG tablet ??? folic acid (FOLVITE) 1 MG tablet ??? furosemide (LASIX) 20 MG tablet ??? gabapentin (NEURONTIN) 100 MG capsule ??? gabapentin (NEURONTIN) 300 MG capsule ??? lactulose (CHRONULAC) 10 GM/15ML solution ??? melatonin 3 MG tablet ??? mirtazapine (REMERON) 30 MG tablet ??? ondansetron, disintegrating, (ZOFRAN ODT) 4 MG tablet ??? pantoprazole EC (PROTONIX) 40 MG tablet ??? propranolol (INDERAL) 10 MG tablet ??? rifAXIMin (XIFAXAN) 550 MG tablet ??? spironolactone (ALDACTONE) 100 MG tablet ??? spironolactone (ALDACTONE) 50 MG tablet ??? THIAMINE HCL PO ??? traMADol (ULTRAM) 50 MG tablet Allergies as of 12/17/2021 - Reviewed 12/17/2021 Allergen Reaction Noted ??? Peanut-derived Anaphylaxis 12/17/2021 No family history on file. Social History Tobacco Use ??? Smoking status: Current Every Day Smoker Packs/day: 0.25 ??? Smokeless tobacco: Never Used ??? Tobacco comment: less than 5 cigarettes a day Substance Use Topics ??? Alcohol use: Yes Comment: occasional Review of Systems: History obtained from the patient. A 12 point review of systems was performed and negative except per HPI. Physical Exam: BP 148/81 Pulse 103 Temp 97.8 ??F (36.6 ??C) (Temporal) Resp 18 Ht 5' 7 (1.702 m) Wt 160 lb (72.6 kg) SpO2 96% BMI 25.06 kg/m2 General exam: patient cooperative with exam Constitutional: well developed, well nourished, no acute distress Head: normocephalic, atraumatic ENT: moist oral mucosa Eyes: non-icteric sclera Cardiovascular: regular rate Respiratory: effort normal, no respiratory distress Neurological: awake, AOx4 Psychiatric: no distress, mood and affect normal, behavior normal, judgment and thought content normal. Extremities: bilateral Upper Extremity: Exam shows no open wounds or lesions. Motor was intact in Median/Radial/Ulnar/Anterior Interosseous/Posterior Interosseous nerve distributions as evidenced by making thumbsup/OK sign/crossing fingers, Flexing/extending all fingers, AB and ADducting all fingers. Sensationto light touch was intact and symmetric to contralateral side over all fingertips distally. Digits were warm and well perfused. The uninjured right lower extremity was compared to the contralateral, injured left lower extremityand showed no obvious deformity, no tenderness, no swelling, no skin wound, and normal range of motion/motor/sensory function with warm and well perfused digits. left Lower Extremity: Exam shows no open wounds or lesions, shortening of the leg with pain with log rolling. Motor was intact EHL/FHL/GS/AT. Sensation to light touch was intact and symmetric to contralateral side over all toes distally. Digits were warm and well perfused. Radiology: XR of left hip demonstrates: displaced left femoral neck fracture Labs: Recent Results (from the past 24 hour(s)) COMPREHENSIVE METABOLIC PANEL Collection Time: 12/17/21 10:57 PM Result Value Ref Range BUN 10 7 - 26 mg/dL Creatinine 0.44 (L) 0.71 - 1.16 mg/dL Sodium 131 (L) 136 - 145 mmol/L Potassium 4.4 3.5 - 4.5 mmol/L Chloride 94 (L) 98 - 107 mmol/L CO2 25 22 - 29 mmol/L Glucose 90 70 - 115 mg/dL Calcium 8.8 8.4 - 10.2 mg/dL Protein Total 8.1 6.0 - 8.3 g/dL Albumin 3.0 (L) 3.4 - 5.0 g/dL Bilirubin Total 1.3 (H) 0.2 - 1.2 mg/dL Alkaline Phosphatase 179 (H) 40 - 150 U/L ALT 74 (H) 5 - 55 U/L AST 127 (H) 5 - 34 U/L Anion Gap 16 8 - 18 BUN/Creatinine Ratio 23 7 - 23 Osmolality Calculated 271 270 - 300 mOsm/kg Albumin/Globulin Ratio 0.6 (L) 1.1 - 2.3 eGFR by CKD-EPI >90 >=90 mL/min/1.73 m2 CBC W AUTO DIFFERENTIAL Collection Time: 12/17/21 10:58 PM Result Value Ref Range WBC 10.1 3.5 - 10.5 10??3/uL RBC 3.99 (L) 4.30 - 5.70 10??6/uL Hemoglobin 12.3 12.0 - 17.6 g/dL Hematocrit 35.2 35.2 - 51.7 % MCV 88.2 80.7 - 98.3 fL MCH 30.8 26.7 - 34.0 pg MCHC 34.9 30.8 - 35.9 g/dL Platelet Count 192 150 - 400 10??3/uL RDW-SD 52.6 (H) 36.0 - 50.0 fL RDW-CV 16.3 (H) 11.2 - 14.8 % MPV 9.7 9.4 - 12.9 fL nRBC Absolute 0.00 0 10??3/uL nRBC Auto 0.0 0 /100 WBC Neutrophils % 65.3 35.0 - 70.0 % Lymphocytes % 12.4 (L) 20.0 - 43.0 % Monocytes % 18.8 (H) 5.0 - 13.0 % Eosinophils % 2.8 0.0 - 6.0 % Basophil % 0.4 0.0 - 2.0 % Neutrophils Absolute 6.6 1.6 - 7.0 10??3/uL Lymphocyte Absolute 1.3 1.1 - 3.9 10??3/uL Monocytes Absolute 1.90 (H) 0.26 - 1.07 10??3/uL Eosinophils Absolute 0.28 0.00 - 0.47 10??3/uL Basophils Absolute 0.04 0.00 - 0.08 10??3/uL Immature Granulocytes % 0.3 0.0 - 1.0 % Immature Granulocytes Absolute 0.03 ALCOHOL ETHYL BLOOD Collection Time: 12/17/21 11:11 PM Result Value Ref Range Ethanol (mg/dL) <10 <10 mg/dL Ethanol Calculated (g/dL) <0.010 <0.010 g/dL PT-INR [facility] Collection Time: 12/17/21 11:11 PM Result Value Ref Range PT 15.4 (H) 12.1 - 14.8 Seconds INR 1.2 See Comment Assessment: Lukas Diaz is a 36 year old male with left femoral neck fracture Plan: -- Treatment options discussed including CRPP vs. ORIF of left hip -- left lower extremity NWB -- Pain control -- Plan for OR today -- NPO -- Please page ortho with any further questions regarding this patient. Geremias Tomas MD 12/18/2021 4:19 AM ETIC COACH Associated attestation - Karsten Waddell DO - 12/18/2021 7:36 AM ATHLETIC COACH Attending Physician Supervisory Note I personally interviewed and examined the patient and agree with the doctor above. After further review of the patient's imaging and discussion with the trauma team, the patients fracture appears to be chronic with evidence on CT scan of callus formation and sclerotic appearing bone. Give the chronic nature of the patient's injury no acute orthopedic intervention is necessary at this time. Patient would be better served with a kevin- vs. Total joint arthroplasty once he has been medically optimized and counseled in regards his substance abuse. Plan for outpatient follow up with total joint specialists after discharge. Karsten Waddell DO documented in this encounter Consult Notes * Michael Ordonez, SUPERVISOR CARTOGRAPHY - 12/18/2021 2:01 PM CSTAssociated Order(s): IP CONSULT TO DEPUTY COURT CLERK New Facility Placement Referral source: PT/OT Date of referral:12/18/2021 Admitted from: Home, was previously at [facility] Special Needs: Patient Goal (short term and jail): Short term Level of Care (SNF/Medicaid NH/Rehab/Automobile Glass Technician Care/LTACH): SNF Spoke with (Phone number, if not patient. Family participation encouraged): Pt at bedside Family Contacted: No List of facilities provided (within patient geographic preference): Yes Referrals initiated: Continued Care and Services - Admitted Since 12/17/2021 Destination Service Provider Request Status Selected Services Address Phone Fax Patient Preferred [facility] Pending - Request Sent N/A [address] [address] [phone] -- [facility] [place] Pending - Request Sent N/A [address] [address] [phone] -- [facility] Pending - Request Sent N/A [address] [facility] [address] -- monitoring facility responses Comments: Substance Abuse - Brief Intervention Referral due to: Chemical Dependence Substance abuse assessment indicated? Yes Substance type: alcohol Assessment completed?: Yes Access Frequency: About once a month Quantity: Has anyone close to you said they were concerned about your alcohol use and/or substance abuse? No Advise: Discussed consequences of risky drinking and/or substance abuse?:Yes Recommendation/Goal Setting: Pt interested in resources only at this time, declined referrals/placement Intervention/Follow-up: No MARY Pisano 12/18/2021 ETIC COACH documented in this encounter ED Notes * Amaris Cid RN - 12/18/2021 6:18 AM CST Report given to Kaila. ETIC COACH * Lima Thompson MD - 12/17/2021 10:39 PM CST ED Attending Note Interval History: Lukas Diaz is a 36 year old male with PMHx of polysubstance abuse, alcoholic cirrhosis, portal hypertension, and esophageal varices who is presenting to the ED [facility]. Patient initially seen at OSH for psychiatric evaluation. He reports waking up next to his girlfriend this morning after apparently overdosing. While at OSH patient reported days of left hip pain and inability to bear weight beginning today. He was found to have left femoralneck fracture. Patient then transferred here for evaluation by orthopedics. Patient reported HI at OSH but adamantly denies that here. Denies SI as well. He denies any particular injury or trauma to hip that he can recall. Patient states he has had left hip pain for the past 2-3 days but it worsened when waking up this morning. He states he was previously able to bear weight but also could not today. Patient describes pain as being 7/10 for the past two days, 9/10 today. He states pain has worsened since being transferred from EMS stretcher to hospital bed. Denies neck pain, head trauma, or LOC. He states he falls frequently due to nerve issues but otherwise does not note any particular events to have caused his pain. Denies numbness, tingling, or focal weakness. Patient follows with [facility]. Pain is worse with movement, better with rest. He has tried Tylenol at home with mild relief of pain. No other questions or complaints at this time. Past Medical History: Diagnosis Date Hypertension No past surgical history on file. Social History Socioeconomic History Marital status: Single Spouse name: Not on file Number of children: Not on file Years of education: Not on file Highest education level: Not on file Occupational History Not on file Tobacco Use Smoking status: Current Every Day Smoker Packs/day: 0.25 Smokeless tobacco: Never Used Tobacco comment: less than 5 cigarettes a day Substance and Sexual Activity Alcohol use: Yes Comment: occasional Drug use: Yes Types: Marijuana Sexual activity: Not on file Other Topics Concern Not on file Social History Narrative Not on file Social Determinants of Health Financial Resource Strain: Not on file Food Insecurity: Not on file Transportation Needs: Not on file Physical Activity: Not on file Stress: Not on file Social Connections: Not on file Intimate Partner Violence: Not on file Housing Stability: Not on file Review of Systems: (+) positive All systems negative except as marked. Constitutional: Negative for fever HENT: Negative for sore throat. Eyes: Negative for visual changes Respiratory: Negative for SOB, cough Cardiovascular: Negative for chest pain, palpitations Gastrointestinal: Negative abdominal pain, nausea, vomiting, diarrhea Genitourinary: Negative for difficulty urinating, hematuria, dysuria Musculoskeletal: + left hip pain Skin: Negative for rash, itching Neurological: Negative for MOYA, dizziness, weakness, numbness, tingling Psychiatric: Negative for SI, hallucinations, anxiety Vitals: 12/17/21 2242 BP: 148/81 Pulse: 103 Resp: 18 Temp: 97.8 ??F (36.6 ??C) SpO2: 96% Weight: 72.6 kg (160 lb) Height: 1.702 m (5' 7 ) Exam: Constitutional: well developed, well nourished, no acute distress HENT: normocephalic, atraumatic, moist oral mucosa, conjunctiva normal Eyes: PERRL, no drainage Neck: supple, normal ROM Cardiovascular: regular rate and rhythm, no murmur Respiratory: clear to auscultation bilaterally, no wheezes, no respiratory distress Abdomen: soft, non-tender, non-distended Musculoskeletal: TTP about left hip, pain with ROM at left hip, LLE neurovascularly intact Skin: warm, dry, scattered abrasions to bilateral forearms, face, and neck Neurological: awake, alert&Ox4, moving all extremities, no focal motor/sensation deficits. Psychiatric: mood and affect normal MDM: Problem List: 1) Left hip fracture Differential diagnosis to evaluate in the emergent setting: Femoral neck fracture Other Workup: Reviewed OSH records, basic labs, repeat XR, pain control, ortho consult Results: Labs Reviewed CBC W AUTO DIFFERENTIAL - Abnormal; Notable for the following components: Result Value RBC 3.99 (*) RDW-SD 52.6 (*) RDW-CV 16.3 (*) Lymphocytes % 12.4 (*) Monocytes % 18.8 (*) Monocytes Absolute 1.90 (*) All other components within normal limits COMPREHENSIVE METABOLIC PANEL - Abnormal; Notable for the following components: Creatinine 0.44 (*) Sodium 131 (*) Chloride 94 (*) Albumin 3.0 (*) Bilirubin Total 1.3 (*) Alkaline Phosphatase 179 (*) ALT 74 (*) AST 127 (*) Albumin/Globulin Ratio 0.6 (*) All other components within normal limits PT-INR [facility] - Abnormal; Notable for the following components: PT 15.4 (*) All other components within normal limits ALCOHOL ETHYL BLOOD - Normal Narrative: Ethanol Interp <10: None Detected. Depression of BAG LOADER MACHINE OPERATOR: >100 mg/dl Potentially Critical: >250 mg/dl Potentially Fatal >400 mg/dl Ethanol in the patient's blood will contribute to the osmolar gap. Ethanol's contribution to the osmolar gap can be estimated by dividing the concentration of ethanol in mg/dL by 4.6. This test is for clinical use only and does not equal a FRED for legal purposes. SARS-COV-2 (COVID-19)+INFLU A+B PCR RAPID URINE DRUG SCREEN IMMUNOASSAY TYPE + SCREEN PANEL XR PELVIS W LEFT HIP 2VW (Results Pending) XR FEMUR LEFT 2VW (Results Pending) ED course: The patient's Oxygen Saturation Monitor was interpreted by me. The reading was 100%. The patient was on RA at the time of the reading. This is interpreted as normal. 11:52 PM- Discussed all the pertinent aspects of the case with orthopedics who will see the patient. 2:00 AM- Orthopedics has evaluated patient and plans to take to OR today. Patient NPO. They will admit to their service After discussion with orthopedics, the patient will be admitted to their service for further management of care. -I have reviewed the diagnostic findings with the patient and they have had an opportunity to ask me any questions they have about care, diagnosis, and reason for admission. The patient states understanding and agrees to admission. 3:22 AM: Patient at this time has a bed assigned with orthopedics service. Patient to be transferred to their inpatient bed. Consult Yes -Orthopedics Procedure done at this time No Ultrasound done at this time No CRITICAL CARE IN THE ED No Orders and Medicine administered during this encounter: Orders Placed This Encounter SARS-COV-2 (COVID-19)+INFLU A+B PCR RAPID XR PELVIS W LEFT HIP 2VW XR FEMUR LEFT 2VW CBC W AUTO DIFFERENTIAL COMPREHENSIVE METABOLIC PANEL ALCOHOL ETHYL BLOOD URINE DRUG SCREEN IMMUNOASSAY PT-INR [facility] IP CONSULT TO ORTHOPEDIC SURGERY morphine injection 4 mg ondansetron (Zofran) injection 4 mg Medications morphine injection 4 mg (4 mg Intravenous $ Given 12/17/21 1027) ondansetron (Zofran) injection 4 mg (4 mg Intravenous $ Given 12/17/21 1900) Clinical Impression: 1. Closed fracture of left hip, initial encounter 2. Hip pain 3. Tachycardia 4. Elevated liver enzymes Disposition: Admit to orthopedics By signing my name below, I, Tony Joshi, attest that this documentation has been prepared under the direction and in the presence of Dr. Thompson. Signed: Yudith Garcia. I, Dr. Thompson, personally performed the services described in this documentation. All medical record entries made by the scribe were at my direction and in my presence. I have reviewed the chart and agree that the record reflects my personal performance and is accurate and complete. Signed: Dr. Thompson. 12/18/2021. 5:52 AM. ETIC COACH * Carolina Menchaca, RN - 12/17/2021 10:28 PM CST bibems as transfer from OSH for left hip fracture. Per EMS leg is shortened, externally rotated. Ptbelieves he fell several days ago but doesn't remember falling. EMS reports hx drug and alcohol abuse, cirrhosis, liver failure. AOx4 on arrival, report 9/10 pain ETIC COACH documented in this encounter Plan of Treatment Upcoming Encounters Date Type Department Care Team (Late st Contact Info) Description 11/29/2024 8:30 AM ATHLETIC COACH Office Visit [facility] - Orthopedic Surgery [address] [place] [address] Toño Cabrera MD [address] [facility] [address] [place] [address] 01/08/2025 8:00 AM CDT Appointment [facility] [address] [place] [id number] 01/08/2025 9:00 AM CDT Office Visit [facility] - [address] [facility] [place] [id number] Amos Pabon MD [address] [place] [address] [address] [place] [address] documented as of this encounter Goals Goal [...] Procedure Name Priority Date/Time Associated Diagnosis Comments CBC W/O DIFFERENTIAL AM Draw 12/19/2021 1:53 AM ATHLETIC COACH VITAMIN D 25-HYDROXY AM Draw 12/19/2021 1:35 AM ATHLETIC COACH COMPREHENSIVE METABOLIC PANEL AM Draw 12/19/2021 1:[address] HIP LEFT WO CONTRAST STAT 12/18/2021 6:44 AM ATHLETIC COACH Closed fracture of left hip, initial encounter (HCC) URINE DRUG SCREEN IMMUNOASSAY STAT 12/18/2021 4:57 AM ATHLETIC COACH BLOOD TYPE VERIFICATION STAT 12/18/2021 4:44 AM ATHLETIC COACH SARS-COV-2 (COVID-19)+INFLU A+B PCR RAPID STAT 12/18/2021 4:17 AM ATHLETIC COACH TYPE + SCREEN PANEL STAT 12/18/2021 4 :17 AM ATHLETIC COACH XR FEMUR LEFT 2VW STAT 12/18/2021 1:3 6 AM ATHLETIC COACH Closed fracture of left hip, initial encounter (HCC) PT-INR [facility] STAT 12/17/2021 11:11 PM ATHLETIC COACH ALCOHOL ETHYL BLOOD STAT 12/17/2021 1 1:11 PM ATHLETIC COACH XR PELVIS W LEFT HIP 2VW STAT 12/17/2021 11:05 PM ATHLETIC COACH Closed fracture of left hip, initial encounter ([facility]) CBC W AUTO DIFFERENTIAL STAT 12/17/2021 10:58 PM ATHLETIC COACH COMPREHENSIVE METABOLIC PANEL STAT 12/17/2021 10:57 PM ATHLETIC COACH documented in this encounter Results * (ABNORMAL) CBC W/O DIFFERENTIAL (12/19/2021 1:53 AM ATHLETIC COACH) [facility] WBC 7.5 3.5 - 10.5 10? 3 /uL 12/19/2021 1:57 AM [facility] RBC 4.23(L) 4.30 - 5.70 10? 6 /uL 12/19/2021 1:57 AM [facility] Hemoglobin 13.0 12.0 - 17.6 g/dL 12/19/2021 1:57 AM [facility] Hematocrit 39.1 35.2 - 51.7 % 12/19/2021 1:57 AM [facility] MCV 92.4 80.7 - 98.3 fL 12/19/2021 1:57 AM [facility] MCH 30.7 26.7 - 34.0 pg 12/19/2021 1:57 AM [facility] MCHC 33.2 30.8 - 35.9 g/dL 12/19/2021 1:57 AM [facility] Platelet Count 198 150 - 400 10? 3 /uL 12/19/2021 1:57 AM [facility] RDW-SD 56.4(H) 36.0 - 50.0 fL 12/19/2021 1:57 AM [facility] RDW-CV 16.5(H) 11.2 - 14.8 % 12/19/2021 1:57 AM [facility] MPV 9.3(L) 9.4 - 12.9 fL 12/19/2021 1:57 AM [facility] nRBC Absolute 0.00 0 10? 3 /uL 12/19/2021 1:57 AM [facility] nRBC Auto 0.0 0 /100 WBC 12/19/2021 1:57 AM [facility] Blood BLOOD SPECIMEN / Unknown Lab Venipuncture / Unknown 12/19/2021 1:53 AM ATHLETIC COACH 12/19/2021 1:53 AM ATHLETIC COACH Anastasia A [place] MOUNTING INSPECTOR-BAG LOADER MACHINE OPERATOR LAB - HEMATOLO GY ORDERABLES Performing Organization Address [facility] de Phone Number [facility] [address] [id number], [facility] [phone] * (ABNORMAL) VITAMIN D 25-HYDROXY (12/19/2021 1:35 AM ATHLETIC COACH) [facility] Vitamin D, 25 Hydroxy 7.0(L) 30.0 - 80.0 ng/mL 12/19/2021 2:30 AM [facility] Comment: The recommendations for 25-Hydroxy Vitamin [...] Reference: ?The Endocrine Society Clinical Practice Guidelines. 2011 ? Blood BLOOD SPECIMEN / Unknown Lab Venipuncture / Unknown 12/19/2021 1:35 AM ATHLETIC COACH 12/19/2021 1:46 AM ATHLETIC COACH Anastasia Chowdhury MOUNTING INSPECTOR-BAG LOADER MACHINE OPERATOR LAB - CHEMISTR Y ORDERABLES Performing Organization Address [facility]/State/ZIP Co de Phone Number [facility] [address] [place] [address], [facility] [phone] * (ABNORMAL) COMPREHENSIVE METABOLIC PANEL (12/19/2021 1:35 AM [facility]) BUN 9 7 - 26 mg/dL 12/19/2021 2:12 AM [facility] Creatinine 0.56(L) 0.71 - 1.16 mg/dL 12/19/2021 2:12 AM [facility] Sodium 134(L) 136 - 145 mmol/L 12/19/2021 2:12 AM [facility] Potassium 3.9 3.5 - 4.5 mmol/L 12/19/2021 2:12 AM [facility] Chloride 100 98 - 107 mmol/L 12/19/2021 2:12 AM [facility] CO2 23 22 - 29 mmol/L 12/19/2021 2:12 AM [facility] Glucose 95 70 - 115 mg/dL 12/19/2021 2:12 AM [facility] Calcium 9.0 8.4 - 10.2 mg/dL 12/19/2021 2:12 AM [facility] Protein Total 7.6 6.0 - 8.3 g/dL 12/19/2021 2:12 AM [facility] Albumin 2.7(L) 3.4 - 5.0 g/dL 12/19/2021 2:12 AM [facility] Bilirubin Total 1.0 0.2 - 1.2 mg/dL 12/19/2021 2:12 AM [facility] Alkaline Phosphatase 180(H) 40 - 150 U/L 12/19/2021 2:12 AM [facility] ALT 67(H) 5 - 55 U/L 12/19/2021 2:12 AM [facility] AST 91(H) 5 - 34 U/L 12/19/2021 2:12 AM [facility] Anion Gap 15 8 - 18 12/19/2021 2:12 AM [facility] BUN/Creatinine Ratio 16 7 - 23 12/19/2021 2:12 AM [facility] Osmolality Calculated 276 270 - 300 mOsm/kg 12/19/2021 2:12 AM [facility] Albumin/Globulin Ratio 0.6(L) 1.1 - 2.3 12/19/2021 2:12 AM [facility] eGFR by CKD-EPI >90 >=90 mL/min/1.7 3 m2 12/19/2021 2:12 AM [facility] Blood BLOOD SPECIMEN / Unknown Lab Venipuncture / Unknown 12/19/2021 1:35 AM ATHLETIC COACH 12/19/2021 1:46 AM ATHLETIC COACH Anastasia Chowdhury MOUNTING INSPECTOR-BAG LOADER MACHINE OPERATOR LAB - CHEMISTR Y ORDERABLES [facility] [address] [place] [address], [facility] [phone] * CT HIP LEFT WO CONTRAST (12/18/2021 6:44 AM ATHLETIC COACH) Anatomical Region Laterality Modality Lower Extremity Computed Tomogra phy 12/18/2021 6:48 AM ATHLETIC COACH Impressions 12/18/2021 8:00 AM ATHLETIC COACH Impression: Displaced left femoral neck fracture, age-indeterminate. Cannot exclude a small posterior-superior acetabular wall fracture. See comments above. Report drafted by Shaun Marie (resident) I, Dr. VALENTE MCDUFFIE MD have personally reviewed and interpreted this examination/study. This report was electronically signed by VALENTE MCDUFFIE MD ??on 12/18/2021 8:00 AM . Narrative 12/18/2021 8:00 AM ATHLETIC COACH Procedure Information DATE: 12/18/2021 6:45 AM EXAMINATION: [...] above. Report drafted by Shaun Marie (resident) I, Dr. VALENTE MCDUFFIE MD have personally reviewed and interpreted this examination/study. This report was electronically signed by VALENTE MCDUFFIE MD on12/18/2021 8:00 AM . Lima Thompson MD CT ORDERABLES * (ABNORMAL) URINE DRUG SCREEN IMMUNOASSAY (12/18/2021 4:57 AM ATHLETIC COACH) [facility] Amphetamines Screen Urine Positive(A) Negative : < 1000 ng/mL 12/18/2021 5:21 AM ATHLETIC COACH [facility] Comment: Positive urine amphetamine screening results should be confirmed by another generally accepted non-immunological method such as gas chromatography or mass spectrometry. ? Barbiturates Screen Urine Negative Negative : < 200 ng/mL 12/18/2021 5:21 AM [facility] Benzodiazepine Screen Urine Negative Negative : < 200 ng/mL 12/18/2021 5:21 AM [facility] Opiates Urine Positive(A) Negative : < 300 ng/mL 12/18/2021 5:21 AM [facility] Comment:Positive urine opiat e screening results should be confirmed by another generally accepted non-immunological method such as gas chromatography or mass spectrometry. Cocaine Metabolites Urine Negative Negative : < 300 ng/mL 12/18/2021 5:21 AM [facility] Phencyclidine Screen Urine Negative Negative : < 25 ng/ml 12/18/2021 5:21 AM [facility] Cannabinoids Screen Urine Positive(A) Negative : <50 ng/mL 12/18/2021 5:21 AM [facility] Comment:Positive urine canna binoids (THC) screening results should be confirmed by another generally accepted non-immunological method such as gas chromatography or mass spectrometry. Methadone Screen Urine Negative Negative : < 300 ng/mL 12/18/2021 5:21 AM [facility] Fentanyl Screen Urine Positive(A) Negative : <1.0 ng/mL 12/18/2021 5:21 AM [facility] Comment:Positive urine fenta nyl screening results should be confirmed by another generally accepted non-immunological method such as gas chromatography or mass spectrometry. Urine URINE / Unknown Collection / Unknown 12/18/2021 4:57 AM [facility] 12/18/2021 4:59 AM [facility] - 12/18/2021 5:21 AM [facility] The Urine Toxicology Screening Panel does not screen for Propoxyphene, Meprobamate, Carisoprodol, Trazodone, [id number]-[id number] medications and/or volatiles (Acetone, Isopropanol, Methanol or Ethylene Glycol). Ethanol, Salicylate, Acetaminophen, Tricyclic Antidepressants and several therapeutic drugs may be individually assayed in serum or plasma specimen. Toxicology testing by the [facility] is an aid to medical diagnosis and treatment of patients. No documented chain of custody was maintained. Results are intended to be used for clinical purposes only. ? Lima Thompson MD LAB - URINE CHEMISTR Y ORDERABLES Performing Organization Address [facility] de Phone Number [address] [address], [place] [phone] * BLOOD TYPE VERIFICATION (12/18/2021 4:44 AM ATHLETIC COACH) [facility] ABO Rh B POS 12/18/2021 5:1 9 AM [facility] Blood Bank BLOOD SPECIMEN / Unknown Lab Venipuncture / Unknown 12/18/2021 4:44 AM ATHLETIC COACH 12/18/2021 4:51 AM ATHLETIC COACH Lima Thompson MD LAB - BLOOD BANK ORD ERABLES Performing Organization Address [facility] de Phone Number [facility] [address] [place] [address], [place] [phone] * SARS-COV-2 (COVID-19)+INFLU A+B PCR RAPID (12/18/2021 4:17 AM ATHLETIC COACH) [facility] COVID-19 PCR Not detected Not detected 12/18/19 6:44 AM [facility] Influenza A Rapid MISAEL Not Detected Not Detected 12/18/2021 6:44 AM [facility] Influenza B MISAEL Rapid Not Detected Not Detected 12/18/2021 6:44 AM ATHLETIC COACH [facility] Microbiology SPECIMEN FROM NASOPHARYNGEAL STRUCTURE / Unknown Collection / Unknown 12/18/2021 4:17 AM ATHLETIC COACH 12/18/2021 6:15 AM ATHLETIC COACH Narrative [facility] - 12/18/2021 6:44 AM ATHLETIC COACH Influenza assay performed by Nucleic Acid Amplification. [...] acid amplification assay performance was validated by [facility]. This test has been authorized by the [...] Thompson MD LAB - MICROBIOLOGY O RDERABLES [facility] [address] [place] [id number], [facility] [phone] * TYPE + SCREEN PANEL (12/18/2021 4:17 AM ATHLETIC COACH) Antibody Screen NEG 5:14 AM [facility] ABO Rh B POS 12/18/2021 5:14 AM [facility] Blood Bank BLOOD SPECIMEN / Unknown Venipuncture / Unknown 12/18/2021 4:17 AM ATHLETIC COACH 12/18/2021 4:29 AM ATHLETIC COACH Lima Thompson MD LAB - BLOOD BANK ORD ERABLES [facility] [address] [place] [address], [facility] [phone] * XR FEMUR LEFT 2VW (12/18/2021 1:36 AM ATHLETIC COACH) Anatomical Region Laterality Modality Lower Extremity Radiographic Юлия ging 12/18/2021 7:13 AM ATHLETIC COACH Impressions 12/18/2021 10:34 AM ATHLETIC COACH FINDINGS/IMPRESSION: Comminuted moderately displaced subcapital fracture of the left femoral neck. There is 1.3 cm interposition of the femoral head and the femoral shaft at the fracture line. The femoral head appears well positioned within its respective acetabula. Soft tissue swelling is noted. Dictated by Stanley Joyce MD (advanced manufacturing vice president). Dr. ALO Anton MD, [facility] have personally reviewed and interpreted this examination/study. This report was electronically signed by ALO VAZQUEZ MD, [facility] ??on 12/18/2021 10:34 AM . Narrative 12/18/2021 10:34 AM ATHLETIC COACH EXAMINATION: XR FEMUR LEFT 2VW HISTORY: S72.002A: Closed fracture of left hip, initial encounter COMPARISON: Pelvis radiograph 12/17/2021 Procedure Note Alo Vazquez MD - 12/18/2021 EXAMINATION: XR FEMUR LEFT 2VW HISTORY: S72.002A: Closed fracture of left hip, initial encounter COMPARISON: Pelvis radiograph 12/17/2021 FINDINGS/IMPRESSION: Comminuted moderately displaced subcapital fracture of the left femoral neck. There is 1.3 cm interposition of the femoral head and the femoral shaft at the fracture line. The femoral head appears well positioned within its respective acetabula. Soft tissue swelling is noted. Dictated by Stanley Joyce MD (advanced manufacturing vice president). IDr. ALO MD, FRCR have personally reviewedand interpreted this examination/study. This report was electronically signed by ALO VAZQUEZ MD, FRCR on 12/18/2021 10:34 AM . Lima Thompson MD DIAGNOSTIC IMAGING O RDERABLES * (ABNORMAL) PT-INR [facility] (12/17/2021 11:11 PM ATHLETIC COACH) PT 15.4(H) 12.1 - 14.8 Seconds 12/17/2021 11:32 PM ATHLETIC COACH [facility] INR 1.2 See Comment 12/17/2021 11:32 PM [facility] Comment:The suggested therap eutic range for standard coumadin (warfarin) therapy is an INR of 2.0-3.0. For high-risk patients (Mechanical Mitral Valve Prosthesis, etc.), the suggested prophylactic therapeutic range is an INR of 2.5-3.5. Blood BLOOD SPECIMEN / Unknown Venipuncture / Unknown 12/17/2021 11:11 PM ATHLETIC COACH 12/17/2021 11:14 PM ATHLETIC COACH Lima Thompson MD LAB - COAGULATION OR DERABLES [facility] [address] [place] [address], [facility] [phone] * ALCOHOL ETHYL BLOOD (12/17/2021 11:11 PM ATHLETIC COACH) Ethanol (mg/dL) <10 <10 mg/dL 11:34 PM ATHLETIC COACH [facility] Ethanol Calculated (g/dL) <0.010 <0.010 g/dL 12/17/2021 11:34 PM [facility] Blood BLOOD SPECIMEN / Unknown Venipuncture / Unknown 12/17/2021 11:11 PM ATHLETIC COACH 12/17/2021 11:14 PM ATHLETIC COACH Narrative [facility] - 12/17/2021 11:34 PM ATHLETIC COACH Ethanol Interp <10: None Detected. Depression of BAG LOADER MACHINE OPERATOR: >100 mg/dl Potentially Critical: >250 mg/dl Potentially Fatal >400 mg/dl Ethanol in the patient's blood will contribute to the osmolar gap. Ethanol's contribution to the osmolar gap can be estimated by dividing the concentration of ethanol in mg/dL by 4.6. This test is for clinical use only and does not equal a FRED for legal purposes. Lima Thompson MD LAB - CHEMISTRY KURT ZARAGOZA [facility] Organization Address City/State/ZIP Co de Phone Number [facility] [place] [address], [facility] [phone] * XR PELVIS W LEFT HIP 2VW (12/17/2021 11:05 PM ATHLETIC COACH) Anatomical Region Laterality Modality Pelvis Radiographic Юлия ging 12/17/2021 11:0 6 PM ATHLETIC COACH Impressions 12/18/2021 10:05 AM ATHLETIC COACH IMPRESSION: Superolaterally displaced fracture of the left femoral neck. Report dictated by Shama Landry M.D. (advanced manufacturing vice president). I, Dr. ALO VAZQUEZ MD, [facility] have personally reviewed and interpreted this examination/study. This report was electronically signed by ALO VAZQUEZ MD, CR ??on 12/18/2021 10:05 AM . Narrative 12/18/2021 10:05 AM ATHLETIC COACH EXAMINATION: XR PELVIS W LEFT HIP 2VW HISTORY: S7.002A: Closed fracture of left hip, initial encounter [...] neck. Report dictated by Shama Landry M.D. (advanced manufacturing vice president). I, Dr. ALO VAZQUEZ MD, FRCR have personally reviewedand interpreted this examination/study. This report was electronically signed by ALO VAZQUEZ MD, FRCR on 12/18/2021 10:05 AM . Lima Thompson MD DIAGNOSTIC IMAGING O RDERABLES * (ABNORMAL) CBC W AUTO DIFFERENTIAL (12/17/2021 10:58 PM ATHLETIC COACH) WBC 10.1 3.5 - 10.5 10? 3 /uL 12/17/2021 11:12 PM [facility] RBC 3.99(L) 4.30 - 5.70 10? 6 /uL 12/17/2021 11:12 PM [facility] Hemoglobin 12.3 12.0 - 17.6 g/dL 12/17/2021 11:12 PM [facility] Hematocrit 35.2 35.2 - 51.7 % 12/17/2021 11:12 PM [facility] MCV 88.2 80.7 - 98.3 fL 12/17/2021 11:12 PM [facility] MCH 30.8 26.7 - 34.0 pg 12/17/2021 11:12 PM [facility] MCHC 34.9 30.8 - 35.9 g/dL 12/17/2021 11:12 PM [facility] Platelet Count 192 150 - 400 10? 3 /uL 12/17/2021 11:12 PM [facility] RDW-SD 52.6(H) 36.0 - 50.0 fL 12/17/2021 11:12 PM [facility] RDW-CV 16.3(H) 11.2 - 14.8 % 12/17/2021 11:12 PM [facility] MPV 9.7 9.4 - 12.9 fL 12/17/2021 11:12 PM [facility] nRBC Absolute 0.00 0 10? 3 /uL 12/17/2021 11:12 PM [facility] nRBC Auto 0.0 0 /100 WBC 12/17/2021 11:12 PM [facility] Neutrophils % 65.3 35.0 - 70.0 % 12/17/2021 11:12 PM [facility] Lymphocytes % 12.4(L) 20.0 - 43.0 % 12/17/2021 11:12 PM [facility] Monocytes % 18.8(H) 5.0 - 13.0 % 12/17/2021 11:12 PM [facility] Eosinophils % 2.8 0.0 - 6.0 % 12/17/2021 11:12 PM [facility] Basophil % 0.4 0.0 - 2.0 % 12/17/2021 11:12 PM [facility] Neutrophils Absolute 6.6 1.6 - 7.0 10? 3 /uL 12/17/2021 11:12 PM [facility] Lymphocyte Absolute 1.3 1.1 - 3.9 10? 3 /uL 12/17/2021 11:12 PM [facility] Monocytes Absolute 1.90(H) 0.26 - 1.07 10? 3 /uL 12/17/2021 11:12 PM [facility] Eosinophils Absolute 0.28 0.00 - 0.47 10? 3 /uL 12/17/2021 11:12 PM [facility] Basophils Absolute 0.04 0.00 - 0.08 10? 3 /uL 12/17/2021 11:12 PM [facility] Immature Granulocytes % 0.3 0.0 - 1.0 % 12/17/2021 11:12 PM [facility] Immature Granulocytes Absolute 0.03 12/17/2021 11:12 PM [facility] Blood BLOOD SPECIMEN / Unknown Venipuncture / Unknown 12/17/2021 10:58 PM ATHLETIC COACH 12/17/2021 11:04 PM ATHLETIC COACH Lima Thompson MD LAB - HEMATOLOGY ORD ERABLES [facility] [address] [place] [address], [facility] [phone] * (ABNORMAL) COMPREHENSIVE METABOLIC PANEL (12/17/2021 10:57 PM [facility]) BUN 10 7 - 26 mg/dL 12/17/2021 11:36 PM [facility] Creatinine 0.44(L) 0.71 - 1.16 mg/dL 12/17/2021 11:36 PM [facility] Sodium 131(L) 136 - 145 mmol/L 12/17/2021 11:36 PM [facility] Potassium 4.4 3.5 - 4.5 mmol/L 12/17/2021 11:36 PM [facility] Comment:Hemolysis detected i n this specimen. Hemolysis may cause false elevations in potassium leading to pseudohyperkalemia or masked hypokalemia. Recommend repeat testing if clinically indicated. Chloride 94(L) 98 - 107 mmol/L 12/17/2021 11:36 PM [facility] CO2 25 22 - 29 mmol/L 12/17/2021 11:36 PM [facility] Glucose 90 70 - 115 mg/dL 12/17/2021 11:36 PM [facility] Calcium 8.8 8.4 - 10.2 mg/dL 12/17/2021 11:36 PM [facility] Protein Total 8.1 6.0 - 8.3 g/dL 12/17/2021 11:36 PM [facility] Comment:Hemolysis detected i n this specimen. Hemolysis is known to cause elevations in this analyte. Caution should be exercised in the interpretation of this result. Recommend repeat testing if clinically indicated. Albumin 3.0(L) 3.4 - 5.0 g/dL 12/17/2021 11:36 PM [facility] Bilirubin Total 1.3(H) 0.2 - 1.2 mg/dL 12/17/2021 11:36 PM [facility] Alkaline Phosphatase 179(H) 40 - 150 U/L 12/17/2021 11:36 PM [facility] ALT 74(H) 5 - 55 U/L 12/17/2021 11:36 PM ATHLETIC COACH [facility] AST 127(H) 5 - 34 U/L 12/17/2021 11:36 PM [facility] Comment:Hemolysis detected i n this specimen. Hemolysis is known to cause elevations in this analyte. Caution should be exercised in the interpretation of this result. Recommend repeat testing if clinically indicated. Anion Gap 16 8 - 18 12/17/2021 11:36 PM [facility] BUN/Creatinine Ratio 23 7 - 23 11/26 11:36 PM [facility] Osmolality Calculated 271 270 - 300 mOsm/kg 12/17/2021 11:36 PM [facility] Albumin/Globulin Ratio 0.6(L) 1.1 - 2.3 12/17/2021 11:36 PM [facility] eGFR by CKD-EPI >90 >=90 mL/min/1 .73 m2 12/17/2021 11:36 PM [facility] Blood BLOOD SPECIMEN / Unknown Venipuncture / Unknown 12/17/2021 10:57 PM [facility] 12/17/2021 11:04 PM [facility] Lima Thompson MD LAB - CHEMISTRY KURT ZARAGOZA [facility] Organization Address City/State/ZIP Co de Phone Number [facility] [address] [place] [address], [facility] [phone] documented in this encounter Visit Diagnoses Diagnosis Closed fracture of left hip (HCC)- Primary Closed fracture of unspecified part of neck of femur Closed fracture of left hip, initial encounter (HCC) Hip pain Pain in joint, pelvic region and thigh Tachycardia Tachycardia, unspecified Elevated liver enzymes Nonspecific elevation of levels of transaminase or lactic acid dehydrogenase (LDH) Unspecified intracapsular fracture of left femur, initial encounter for closed fracture (HCC) Contact with and (suspected) exposure to covid-19 Chronic left hip pain Pain in joint, pelvic region and thigh Tachycardia Tachycardia, unspecified Elevated liver enzymes Nonspecific elevation of levels of transaminase or lactic acid dehydrogenase (LDH) Vitamin D deficiency Hepatic cirrhosis (HCC) Cirrhosis of liver without mention of alcohol Nicotine abuse Tobacco use disorder documented in this encounter Administered Medications Inactive Administered Medications - up to 3 most recent administrations Medication Order MAR Action Action Date Dose Rate Site baclofen (Lioresal) tablet 10 mg 10 mg, Oral, 3 TIMES DAILY, First dose on Oly 12/18/21 at 1400, Until Discontinued $ Given 12/20/2021 12:56 PM ATHLETIC COACH 10 mg $ Given 12/20/2021 8:31 AM ATHLETIC COACH 10 mg $ Given 12/19/2021 8:47 PM ATHLETIC COACH 10 mg busPIRone (Buspar) tablet 5 mg 5 mg, Oral, 2 TIMES DAILY, First dose on Wed12/18/21 at 0900, Until Discontinued $ Given 12/20/2021 8:32 AM ATHLETIC COACH 5 mg $ Given 12/19/2021 8:47 PM ATHLETIC COACH 5 mg $ Given 12/19/2021 8:32 AM ATHLETIC COACH 5 mg calcium tablet 500 mg 500 mg, Oral, 2 TIMES DAILY WITH MEALS, First dose on Wed12/19/21 at 0800, Until Discontinued $ Given 12/20/2021 8:32 AM ATHLETIC COACH 500 mg $ Given 12/19/2021 5:03 PM ATHLETIC COACH 500 mg $ Given 12/19/2021 8:33 AM ATHLETIC COACH 500 mg folic acid (Folvite) tablet 1 mg 1 mg, Oral, DAILY, First dose on Wed12/18/21 at 0900, Until Discontinued $ Given 12/20/2021 8:31 AM ATHLETIC COACH 1 mg $ Given 12/19/2021 8:32 AM ATHLETIC COACH 1 mg $ Given 12/18/2021 9:27 AM ATHLETIC COACH 1 mg furosemide (Lasix) tablet 60 mg 60 mg, Oral, DAILY, First dose (after last modification) on Wed12/19/21 at 0900, Until Discontinued $ Given 12/20/2021 8:31 AM ATHLETIC COACH 60 mg $ Given 12/19/2021 8:33 AM ATHLETIC COACH 60 mg gabapentin (Neurontin) capsule 100 mg 100 mg, Oral, 3 TIMES DAILY, First dose on Wed12/18/21 at 0900, Until Discontinued $ Given 12/18/2021 1:19 PM ATHLETIC COACH 100 mg $ Given 12/18/2021 9:27 AM ATHLETIC COACH 100 mg lactated ringers infusion at 125 mL/hr, Intravenous, CONTINUOUS, Starting on Wed12/18/21 at 0445, Until Wed12/18/21 at 1113 $ New Bag/Syringe 12/18/2021 4:30 AM ATHLETIC COACH 125 mL/hr lactulose (Chronulac) solution 3.333 g 3.333 g (rounded from 3.3333 g = 5 mL), Oral, 3 TIMES DAILY, First dose on Wed12/18/21 at 0900, Until Discontinued $ Given 12/20/2021 8:32 AM ATHLETIC COACH 3.333 g mirtazapine (Remeron) tablet 30 mg 30 mg, Oral, AT BEDTIME, First dose on Wed12/18/21 at 2100, Until Discontinued $ Given 12/19/2021 8:47 PM ATHLETIC COACH 30 mg $ Given 12/18/2021 8:03 PM ATHLETIC COACH 30 mg morphine injection 4 mg 4 mg, Intravenous, ONCE, 1 dose, On Wed12/17/21 at 2300, Patient preference for lesser PRN pain meds may be honored when the patient requests a less strong medication, a lower dose, or a less intrusive route of administration when the lesser drug, dose and route have been ordered for the patient. This patient request must be documented in the MAR. $ Given 12/17/2021 11:13 PM ATHLETIC COACH 4 mg multivitamin daily tablet 1 tablet 1 tablet, Oral, DAILY, First dose on Wed12/19/21 at 0900, Until Discontinued, . WASTE DISPOSAL INSTRUCTIONS: Black Bin Disposal required. $ Given 12/20/2021 8:32 AM ATHLETIC COACH 1 tablet $ Given 12/19/2021 8:33 AM ATHLETIC COACH 1 tablet ondansetron (Zofran) injection 4 mg 4 mg, Intravenous, NOW, 1 dose, On Wed12/17/21 at 2245, Administer over 2 to 5 minutes. $ Given 12/17/2021 11:13 PM ATHLETIC COACH 4 mg oxyCODONE (immediate release) (Roxicodone) tablet 5 mg 5 mg, Oral, EVERY 4 HOURS PRN, Moderate Pain, Starting on Wed12/18/21 at 0920, Until Wed12/19/21 at 1555, Patient preference for lesser PRN pain meds may be honored when the patient requests a less strong medication, a lower dose, or a less intrusive route of administration when the lesser drug, dose and route have been ordered for the patient. This patient request must be documented in the MAR. $ Given 12/19/2021 12:58 PM ATHLETIC COACH 5 mg $ Given 12/19/2021 8:33 AM ATHLETIC COACH 5 mg $ Given 12/19/2021 4:26 AM ATHLETIC COACH 5 mg pantoprazole EC (Protonix) tablet 40 mg 40 mg, Oral, 2 TIMES DAILY, First dose on [facility] 12/18/21 at 0900, Until Discontinued, Do not crush, chew, or cut in half. $ Given 12/20/2021 8:32 AM ATHLETIC COACH 40 mg $ Given 12/19/2021 8:47 PM ATHLETIC COACH 40 mg $ Given 12/19/2021 8:33 AM ATHLETIC COACH 40 mg pregabalin (Lyrica) capsule 75 mg 75 mg, Oral, 2 TIMES DAILY, First dose on Oly 12/18/21 at 2100, Until Discontinued $ Given 12/20/2021 8:32 AM ATHLETIC COACH 75 m g $ Given 12/19/2021 8:50 PM ATHLETIC COACH 75 mg $ Given 12/19/2021 8:33 AM ATHLETIC COACH 75 mg propranolol (Inderal) tablet 10 mg 10 mg, Oral, 2 TIMES DAILY, First dose on Oly 12/18/21 at 0900, Until Discontinued, Avoid abrupt withdrawal $ Given 12/20/2021 8:33 AM ATHLETIC COACH 10 mg $ Given 12/19/2021 8:47 PM ATHLETIC COACH 10 mg $ Given 12/19/2021 8:33 AM ATHLETIC COACH 10 mg rifAXIMin (Xifaxan) tablet 550 mg 550 mg, Oral, 2 TIMES DAILY, First dose on [facility] 12/18/21 at 1315, Until Discontinued $ Given 12/20/2021 8:31 AM ATHLETIC COACH 550 mg $ Given 12/19/2021 8:47 PM ATHLETIC COACH 550 mg $ Given 12/19/2021 8:33 AM ATHLETIC COACH 550 mg spironolactone (Aldactone) tablet 100 mg 100 mg, Oral, ONCE, 1 dose, On Oly 12/18/21 at 1300 $ Given 12/18/2021 1:19 PM ATHLETIC COACH 100 mg spironolactone (Aldactone) tablet 150 mg 150 mg, Oral, DAILY, First dose (after last modification) on Wed12/19/21 at 0900, Until Discontinued $ Given 12/20/2021 8:31 AM ATHLETIC COACH 150 mg $ Given 12/19/2021 8:32 AM ATHLETIC COACH 150 mg spironolactone (Aldactone) tablet 50 mg 50 mg, Oral, DAILY, First dose on [facility] 12/18/21 at 0900, Until Discontinued $ Given 12/18/2021 9:27 AM ATHLETIC COACH 50 mg temazepam (Restoril) capsule 7.5 mg 7.5 mg, Oral, AT BEDTIME, First dose on Oly 12/18/21 at 2100, Until Discontinued $ Given 12/19/2021 8:47 PM ATHLETIC COACH 7.5 mg $ Given 12/18/2021 8:02 PM ATHLETIC COACH 7.5 mg traMADol (Ultram) tablet 50 mg 50 mg, Oral, EVERY 6 HOURS PRN, Moderate Pain, Starting on Wed12/19/21 at 1555, Until 12/20/21 at 1858, Patient preference for lesser PRN pain meds may be honored when the patient requests a less strong medication, a lower dose, or a less intrusive route of administration when the lesser drug, dose and route have been ordered for the patient. This patient request must be documented in the MAR. $ Given 12/20/2021 12:25 PM ATHLETIC COACH 50 m g $ Given 12/20/2021 2:28 AM ATHLETIC COACH 50 mg $ Given 12/19/2021 5:03 PM ATHLETIC COACH 50 mg vitamin D (ergocalciferol) (Drisdol) 1.25 MG (70829 UT) capsule 50,000 Units 50,000 Units, Oral, EVERY 7 DAYS, First dose on Wed12/19/21 at 0900, Until Discontinued, Do not crush or chew. $ Given 12/19/2021 8:32 AM ATHLETIC COACH 50,000 Units documented in this encounter Active and Recently Administered Medications Times are shown in ATHLETIC COACH. Scheduled Medication Order 12/18/2021 12/19/2021 12/20/2021 baclofen (Lioresal) tablet 10 mg 10 mg, Oral, 3 TIMES DAILY, First dose on Wed12/18/21 at 1400, Until Discontinued 1319 ($ Given - Provider: Sangeetha Beatty RN)2002 ($ Given - Provider: Franchesca Dupont, ALFREDO) 0833 ($ Given - Provider: Roxana Lancaster, RN)125 ($ Given - Provider: Roxana Lancaster, RN)2046 ($ Given - Provider: Franchesca Dupont RN) 0831 ($ Given - Provider: Roxana Lancaster, RN)1256 ($ Given - Provider: Roxana Lancaster, RN) busPIRone (Buspar) tablet 5 mg 5 mg, Oral, 2 TIMES DAILY, First dose on Oly 12/18/21 at 0900, Until Discontinued 926 ($ Given - Provider: Sangeetha Beatty RN)2002 ($ Given - Provider: Franchesca Dupont RN) 831 ($ Given - Provider: Roxana Lancaster RN)2046 ($ Given - Provider: Franchesca Dupont RN) 0832 ($ Given - Provider: Roxana Lancaster RN) calcium tablet 500 mg 500 mg, Oral, 2 TIMES DAILY WITH MEALS, First dose on Wed12/19/21 at 0800, Until Discontinued 832 ($ Given - Provider: Roxana Lancaster RN)1702 ($ Given - Provider: Roxana Lancaster, ALFREDO) 0832 ($ Given - Provider: Roxana Lancaster, RN) folic acid (Folvite) tablet 1 mg 1 mg, Oral, DAILY, First dose on Wed12/18/21 at 0900, Until Discontinued 926 ($ Given - Provider: Sangeetha Beatty RN) 08 ($ Given - Provider: Roxana Lancaster RN) 0831 ($ Given - Provider: Roxana Lancaster RN) furosemide (Lasix) tablet 60 mg 60 mg, Oral, DAILY, First dose (after last modification) on Wed12/19/21 at 0900, Until Discontinued 832 ($ Given - Provider: Roxana Lancaster RN) 0831 ($ Given - Provider: Roxana Lancaster RN) gabapentin (Neurontin) capsule 100 mg (CANCELED) 100 mg, Oral, 3 TIMES DAILY, First dose on Wed12/18/21 at 0900, Until Discontinued 926 ($ Given - Provider: Sangeetha Beatty RN)1319 ($ Given - Provider: Sangeetha Beatty RN) lactulose (Chronulac) solution 3.333 g 3.333 g (rounded from 3.3333 g = 5 mL), Oral, 3 TIMES DAILY, First dose on Wed12/18/21 at 0900, Until Discontinued 929 (Not Administered - Provider: Sangeetha Beatty RN - Reason: Refused-Patient)132 (Not Administered - Provider: Sangeetha Beatty RN - Reason: Refused-Patient)2002 (Not Administered - Provider: Franchesca Dupont RN - Reason: Refused-Patient) 0835 (Not Administered - Provider: Roxana Lancaster RN - Reason: Refused-Patient)1453 (Not Administered - Provider: Roxana Lancaster RN - Reason: Refused-Patient)2046 (Not Administered - Provider: Franchesca Dupont RN - Reason: Refused-Patient) 0832 ($ Given - Provider: Roxana Lancaster RN)1456 (Not Administered - Provider: Roxana Lancaster RN - Reason: Refused-Patient) mirtazapine (Remeron) tablet 30 mg 30 mg, Oral, AT BEDTIME, First dose on Wed12/18/21 at 2100, Until Discontinued 2002 ($ Given - Provider: Franchesca Dupont RN) 2046 ($ Given - Provider: Franchesca Dupont RN) multivitamin daily tablet 1 tablet 1 tablet, Oral, DAILY, First dose on Wed12/19/21 at 0900, Until Discontinued, . WASTE DISPOSAL INSTRUCTIONS: Black Bin Disposal required. 08 ($ Given - Provider: Roxana Lancaster RN) 0832 ($ Given - Provider: Roxana Lancaster RN) pantoprazole EC (Protonix) tablet 40 mg 40 mg, Oral, 2 TIMES DAILY, First dose on Wed12/18/21 at 0900, Until Discontinued, Do not crush, chew, or cut in half. 926 ($ Given - Provider: Sangeetha Beatty RN)2002 ($ Given - Provider: Franchesca Dupont RN) 832 ($ Given - Provider: Roxana Lancaster RN)2046 ($ Given - Provider: Franchesca Dupont, ALFREDO) 0832 ($ Given - Provider: Roxana Lancaster RN) pregabalin (Lyrica) capsule 75 mg 75 mg, Oral, 2 TIMES DAILY, First dose on Wed12/18/21 at 2100, Until Discontinued 2001 ($ Given - Provider: Franchesca Dupont, ALFREDO) 33 ($ Given - Provider: Roxana Lancaster, ALFREDO)2049 ($ Given - Provider: Franchesca Dupont RN) 0832 ($ Given - Provider: Roxana Lancaster RN) propranolol (Inderal) tablet 10 mg 10 mg, Oral, 2 TIMES DAILY, First dose on Wed12/18/21 at 0900, Until Discontinued, Avoid abrupt withdrawal 926 ($ Given - Provider: Sangeetha Beatty RN)2002 ($ Given - Provider: Franchesca Dupont RN) 0833 ($ Given - Provider: Roxana Lancaster, RN)2046 ($ Given - Provider: Franchesca Dupont RN) 0833 ($ Given - Provider: Roxana Lancaster RN) rifAXIMin (Xifaxan) tablet 550 mg 550 mg, Oral, 2 TIMES DAILY, First dose on Oly 12/18/21 at 1315, Until Discontinued 131 ($ Given - Provider: Sangeetha Beatty RN)2001 ($ Given - Provider: Franchesca Dupont RN) 08 ($ Given - Provider: Roxana Lancaster, ALFREDO)2046 ($ Given - Provider: Franchesca Dupont, ALFREDO) 0831 ($ Given - Provider: Roxana Lancaster RN) spironolactone (Aldactone) tablet 100 mg (COMPLETED) 100 mg, Oral, ONCE, 1 dose, On Oly 12/18/21 at 1300 1319 ($ Given - Provider: Sangeetha Beatty RN) spironolactone (Aldactone) tablet 150 mg 150 mg, Oral, DAILY, First dose (after last modification) on Wed12/19/21 at 0900, Until Discontinued 08 ($ Given - Provider: Roxana Lancaster RN) 0831 ($ Given - Provider: Roxana Lancaster RN) spironolactone (Aldactone) tablet 50 mg (CANCELED) 50 mg, Oral, DAILY, First dose on Oly 12/18/21 at 0900, Until Discontinued 926 ($ Given - Provider: Sangeetha Beatty RN) temazepam (Restoril) capsule 7.5 mg 7.5 mg, Oral, AT BEDTIME, First dose on Oly 12/18/21 at 2100, Until Discontinued 2001 ($ Given - Provider: Franchesca Dupont RN) 2046 ($ Given - Provider: Franchesca Dupont RN) vitamin D (ergocalciferol) (Drisdol) 1.25 MG (29708 UT) capsule 50,000 Units 50,000 Units, Oral, EVERY 7 DAYS, First dose on Wed12/19/21 at 0900, Until Discontinued, Do not crush or chew. 0832 ($ Given - Provider: Roxana Lancaster RN) Continuous Medication Order 12/18/2021 12/19/2021 12/20/2021 lactated ringers infusion (CANCELED) at 125 mL/hr, Intravenous, CONTINUOUS, Starting on Oly 12/18/21 at 0445, Until Oly 12/18/21 at 1113 0430 ($ New Bag/Syringe - Provider: Amaris Cid RN) PRN Medication Order 12/18/2021 12/19/2021 12/20/2021 melatonin tablet 3 mg 3 mg, Oral, AT BEDTIME PRN, Insomnia, Starting on Oly 12/18/21 at 0611, Until 12/20/21 at 1858 oxyCODONE (immediate release) (Roxicodone) tablet 5 mg (CANCELED) 5 mg, Oral, EVERY 4 HOURS PRN, Moderate Pain, Starting on Oly 12/18/21 at 0920, Until 12/19/21 at 1555, Patient preference for lesser PRN pain meds may be honored when the patient requests a less strong medication, a lower dose, or a less intrusive route of administration when the lesser drug, dose and route have been ordered for the patient. This patient request must be documented in the MAR. 0927 ($ Given - Provider: Sangeetha Beatty RN)1320 ($ Given - Provider: Sangeetha Beatty RN)1811 ($ Given - Provider: Sangeetha Beatty RN)2259 ($ Given - Provider: Franchesca Dupont RN) 0426 ($ Given - Provider: Franchesca Dupont RN)0833 ($ Given - Provider: Roxana Lancaster RN)1258 ($ Given - Provider: Roxana Lancaster RN) traMADol (Ultram) tablet 50 mg 50 mg, Oral, EVERY 6 HOURS PRN, Moderate Pain, Starting on 12/19/21 at 1555, Until 12/20/21 at 1858, Patient preference for lesser PRN pain meds may be honored when the patient requests a less strong medication, a lower dose, or a less intrusive route of administration when the lesser drug, dose and route have been ordered for the patient. This patient request must be documented in the MAR. 1703 ($ Given - Provider: Roxana Lancaster RN) 0228 ($ Given - Provider: Franchesca Dupont RN)6755 ($ Given - Provider: Roxana Lancaster RN) documented in this encounter Care Teams Speech Language Pathology Assistant Relationship Specialty Start Date End Date Major Kraft MD PCP - General 07/01/21 06/08/22 Eric Oconnell MD Hospitalist 10/10/21 documented as of this encounter
--- OUTSIDE RECORDS SUMMARY | 2024-10-19 20:13 | XMS_ITS | Encounter Summary ---
Author Organization [facility] Health Address [address] [place] [address] Care Team Providers Care Taper/Finisher Name Role Phone Major Kraft MD Primary Care Provider + [phone] Eric Oconnell MD Unavailable + [phone] Reason for Visit * Reason Onset Date Comments Post Op Call 03/06/2022 Encounter Details Date Type Department Care Team (Late st Contact Info) Description 03/06/2022 Telephone [facility] [address] [place] [address] Heidi Layton, ALFREDO Post Op Call Social History Tobacco Use Types Packs/Day Years [...] No 03/05/2022 documented as of this encounter Miscellaneous Notes * Telephone Encounter - Heidi Layton RN - 03/06/2022 3:36 PM CDT Patient had EGD yesterday 03/06/22. Patient states he has a mild sore throat. Instructed patient to use throat lozenges and cold liquids. Patient will monitor and call back if not resolved or condition worsens. documented in this encounter Plan of Treatment Upcoming Encounters Date Type Department Care Team (Late st Contact Info) Description 11/29/2024 8:30 AM HEAT AND VENT AIRCRAFT MECHANIC Office Visit [facility] - Orthopedic Surgery [address] [facility] [place] [address] Toño Cabrera MD [address] [facility] [address] [place] [address] 01/08/2025 8:00 AM CDT Appointment [facility] [address] [place] [address] 01/08/2025 9:00 AM CDT Office Visit [facility] - GI [address] [facility], [place] [phone] Amos Pabon MD [address] [place] [address] [place] [address] documented as of this encounter Goals Goal [...] on filedocumented in this encounter Care Teams Taper/Finisher Relationship Specialty Start Date End Date Major Kraft MD PCP - General 07/01/21 06/08/22 Eric Oconnell MD Hospitalist 10/10/21 documented as of this encounter
--- OUTSIDE RECORDS SUMMARY | 2024-10-19 20:13 | XMS_ITS | Encounter Summary ---
Author Organization [facility] Address [address] [place] [address] Care Team Providers Care Mink Farmer Name Role Phone Major Kraft MD Primary Care Provider [phone] Eric Oconnell MD Unavailable + [phone] Raya Carty PA-C Primary Care Provider Major Kraft MD Primary Care Provider + [phone] Gregorio James MD Primary Care Provider [phone] Teodoro Lopez Primary Care Provider Unavailabl e Reason for Visit * Reason Onset Date Comments Pre-op Instructions 02/26/2022 Encounter Details Date Type Department Care Team (Late st Contact Info) Description 02/26/2022 Patient Outreach [facility] [address] [place] [phone] Ginger Amador RN Pre-op Instructions Social History Tobacco Use Types Packs/Day Years [...] No 12/18/2021 documented as of this encounter Plan of Treatment Upcoming Encounters Date Type Department Care Team (Late st Contact Info) Description 11/29/2024 8:30 AM SERVICES ADVISOR Office Visit [facility] - Orthopedic Surgery [address] [facility] [place] [address] Toño Cabrera MD [address] [facility] [address] [place] [address] 01/08/2025 8:00 AM CDT Appointment [facility] [address] [place] [address] 01/08/2025 9:00 AM CDT Office Visit [facility] - GI [address] [place] [address], [place] [phone] Amos Pabon MD [address] [place] [address] [place] [address] documented as of this encounter Goals Goal [...] on filedocumented in this encounter Care Teams Mink Farmer Relationship Specialty Start Date End Date Major Kraft MD PCP - General 07/01/21 06/08/22 Raya Carty PA-C [address] [place] [phone] PCP - General 06/09/22 07/05/22 Major Kraft MD PCP - General 07/06/22 08/10/22 Gregorio James MD [address] [place] [phone] PCP - General 08/11/22 05/16/24 Teodoro Lopez PCP - General 05/17/24 Eric Oconnell MD Hospitalist 10/10/21 documented as of this encounter
--- OUTSIDE RECORDS SUMMARY | 2024-10-19 20:13 | XMS_ITS | Encounter Summary ---
Author Organization [facility] Health Address [address] [facility] [place] [address] Care Team Providers Care Inbound Customer Service Representative Name Role Phone Eric Oconnell MD Unavailable [phone] Raya Carty PA-C Primary Care Provider Reason for Visit * Reason Onset Date Comments Question 07/02/2022 Encounter Details Date Type Department Care Team (Late st Contact Info) Description 07/02/2022 Telephone [facility] - Nephrology [address] [facility] [place] [phone] Ellyn Payne RN Question Social History Tobacco Use Types Packs/Day [...] Telephone Encounter - Ellyn Payne RN - 07/02/2022 1:15 PM CDT Received call from Nurse at [facility]. Pt's Xifaxan needs PA. Inquiring if form has been received and sent back to Medicaid. Would like a call when form has been completed and Xifaxan has been approved. Contact #[phone] documented in this encounter Plan of Treatment Upcoming Encounters Date Type Department Care Team (Late st Contact Info) Description 11/29/2024 8:30 AM DOORSHAKER Office Visit [facility] - Orthopedic Surgery [address] [place] [address] Toño Cabrera MD [address] [facility] 280 [place] [address] 01/08/2025 8:00 AM CDT Appointment [facility] [address] [place] [address] 01/08/2025 9:00 AM CDT Office Visit [facility] - GI [address] [facility], [place] [phone] Amos Pabon MD [address] [place] [address] [place] [address] documented as of this encounter Goals Goal [...] on filedocumented in this encounter Care Teams Inbound Customer Service Representative Relationship Specialty Start Date End Date Raya Carty PA-C [address] [place] [phone] PCP - General 06/09/22 07/05/22 Eric Oconnell MD Hospitalist 10/10/21 documented as of this encounter
--- OUTSIDE RECORDS SUMMARY | 2024-10-19 20:13 | XMS_ITS | Encounter Summary ---
Author Organization [facility] Address [address] [facility] [address] Care Team Providers Care Hydrochloric Acid Operator Name Role Phone Major Kraft MD Primary Care Provider + [phone] Eric Oconnell MD Unavailable + [phone] Reason for Visit * Reason Onset Date Comments Results 02/24/2022 Encounter Details Date Type Department Care Team (Late st Contact Info) Description 02/24/2022 Telephone [facility] - [address] [place] [phone] Sheridan Ng, RN Results Social History Tobacco [...] Telephone Encounter - Sheridan Ng RN - 02/24/2022 10:16 AM CDT Called patient to relay message from Dr. Pabon: Labs are stable. Liver function is normal. ??Renal function and electrolytes are normal. May cut down diuretics as Lasix 20 and spironolactone 50 daily. Repeat labs in 3 months. ??CBC/CMP/INR. Left message on patients cell phone for a return call. Called and spoke to RN at [facility] and faxed order for labs and medication changes to [phone]. documented in this encounter Plan of Treatment Upcoming Encounters Date Type Department Care Team (Late st Contact Info) Description 11/29/2024 8:30 AM FURNITURE FINISHER Office Visit [facility] - [facility]opedic Surgery [address] [facility] [place] [address] Toño Cabrera MD [address] [facility] [address] [place] [address] 01/08/2025 8:00 AM CDT Appointment [facility] [address] [place] [address] 01/08/2025 9:00 AM CDT Office Visit [facility] - GI [address] [place] [address], [place] [address] Amos Pabon MD [address] [place] [address] [place] [address] Scheduled Orders Name Type Priority Associated Diagnoses Orde r Schedule COMPREHENSIVE METABOLIC PANEL Lab Routine Cirrhosis of liver with ascites, unspecified hepatic cirrhosis type (HCC) Elevated liver enzymes Encounter for monitoring diuretic therapy Ordered: 02/24/2022 CBC WITH DIFFERENTIAL Lab Routine Cirrhosis of liver with ascites, unspecified hepatic cirrhosis type (HCC) Elevated liver enzymes Encounter for monitoring diuretic therapy Ordered: 02/24/2022 PT-INR Lab STAT Cirrhosis of liver with ascites, unspecified hepatic cirrhosis type (HCC) Ordered: 02/24/2022 documented as of this encounter Goals Goal [...] ascites, unspecified hepatic cirrhosis type (HCC)- Primary Elevated liver enzymes Nonspecific elevation of levels of transaminase or lactic acid dehydrogenase (LDH) Encounter for monitoring diuretic therapy Encounter for therapeutic drug monitoring documented in this encounter Care Teams Hydrochloric Acid Operator Relationship Specialty Start Date End Date Major Kraft MD PCP - General 07/01/21 06/08/22 Eric Oconnell MD Hospitalist 10/10/21 documented as of this encounter
--- OUTSIDE RECORDS SUMMARY | 2024-10-19 20:13 | XMS_ITS | Encounter Summary ---
Author Organization [facility] Address [address] [facility] [place] [address] Care Team Providers Care Hydro Mechanic Name Role Phone Major Kraft MD Primary Care Provider [phone] Eric Oconnell MD Unavailable + [phone] Reason for Visit * Reason Comments Pain Hip left Encounter Details Date Type Department Care Team (Latest Contact Info) Description 01/21/2022 9:30 AM CDT Office Visit [facility] [address] [place] [address] Toño Cabrera MD [address] [address] Closed fracture of left hip, initial encounter (HCC) (Primary Dx); Post-traumatic osteoarthritis of left hip Social History Tobacco Use Types Packs/Day Years [...] Progress Notes * Toño Cabrera MD - 01/21/2022 10:17 AM CDT Lukas Diaz is a 36 year old male who had a neglected left femoral neck fracture and was treated with NWB for unknown reasons as he is a poor historian. [facility] and wasfound to have a neglected femoral neck fracture with some callus formation so no fixation was performed due to his substance abuse and liver cirrhosis. He states he stopped smoking 15 days ago. He takes tramadol. Complains of pain in the left hip groin and the letter C sign distribution. He feels like the left leg is actually longer. He is in a wheelchair today but states he does use crutches. Hestates he can not walk due to the pain. Denies any recent fever or chills, tingling, numbness. He states he stopped smoking in April and his cirrhosis has been improving but he does see hepatology at [facility]. He states he can not do his activities of daily living including walking or standing for any prolonged period of time due to the left hip pain. He is in a nursing home[facility] this point. Current Outpatient Medications on File Prior to Visit Medication Sig Dispense Refill ??? baclofen (LIORESAL) 10 MG tablet Take 10 mg by mouth 3 times daily May cause drowsiness. ??? busPIRone (BUSPAR) 5 MG tablet Take 5 mg by mouth 2 times daily ??? [...] daily 60 tablet 11 ??? spironolactone (ALDACTONE) 100 MG tablet Take [...] hours as needed 28 tablet 0 ??? vitamin D, ergocalciferol, (DRISDOL) 1.25 MG (18631 UT) capsule Take 1 (one) capsule by mouth every 7 days for 90 days 4 capsule 2 No current facility-administered medications on file prior to visit. Past Medical History: Diagnosis Date ??? Hypertension No past surgical history on file. Social History Occupational History ??? Not on file Tobacco Use ??? Smoking status: Current Every Day Smoker Packs/day: 0.25 ??? Smokeless tobacco: Never Used ??? Tobacco comment: less than 5 cigarettes a day Vaping Use ??? Vaping Use: Never used Substance and Sexual Activity ??? Alcohol use: Yes Comment: occasional- last drink was Friday 12/15 ??? Drug use: Yes Types: Marijuana ??? Sexual activity: Not on file No family history on file. Review of Systems Constitutional: Negative for chills, fever, malaise/fatigue and weight loss. Respiratory: Negative for shortness of breath. Cardiovascular: Negative for claudication and leg swelling. Musculoskeletal: Positive for joint pain. Negative for falls. Skin: Negative for itching and rash. Neurological: Negative for focal weakness. All other systems reviewed and are negative. Physical exam: Patient is awake alert BMI is 25 Facial expressions are appropriate with a mask in place Patient is cooperative with examination Examination left hip reveals he is at least 2 cm short compared to the right. Distally he can dorsiflex and plantar flex his ankle and toes without difficulty. I can flex him to 90, abduction 20, adduction 10, internal rotation of 10, external rotation of 20 with mild pain. He does have pain with loading of the hip X-rays: Multiple views of the left femur reveals a neglected left femoral neck fracture with resorption of the left femoral neck and head with posttraumatic osteoarthritis Assessment: Neglected left femoral neck fracture with posttraumatic osteoarthritis Plan: We discussed risks and benefits of surgical intervention at length. We discussed he needs to be off alcohol and nicotine. We discussed testing him preoperatively for nicotine levels. We discussed he would need to stay off for least 3 months postoperatively. We risks and benefits were discussed at length and we will get him medical, dental, and hepatology clearances. Conservative treatment for left hip neglected femoral neck fracture with posttraumatic osteoarthritis including >12 weeks of PT, NSAIDS, glucosamine/Vit D, ambulatory aids, weight loss, and corticosteroid injections has failed. Symptoms of pain, difficulty ambulating, difficulty standing, difficulty with stair climbing and difficulty with personal hygiene are interfering with patient's lifestyle. Will obtain medical and dental clearances and schedule for left hip arthroplasty HOOS Score 01/21/2022 HOOS Score Left 32 Risks, benefits, and alternatives to the surgical procedure were discussed with the patient and present family members. Risks discussed among others were: Infection, bleeding/blood transfusion, neurovascular damage, prosthetic joint instability, failure to improve symptoms, venous thrombosis/pulmonary embolism, and anesthesia complications including . We also discussed the procedure at length and answered any of the patient's questions. We also discussed the importance of early motion and early active ankle pumps for DVT/PE prevention and demonstrated this to the patient and had active participation as well. Patient understood the treatment plan and all questions were answered. Toño Cabrera MD ?? documented in this encounter Plan of Treatment Upcoming Encounters Date Type Department Care Team (Late st Contact Info) Description 11/29/2024 8:30 AM CUSTOM BIKE BUILDER Office Visit [facility] - Orthopedic Surgery [address] [place] [address] Toño Cabrera MD 10[address] [facility] 280 [place] [address] 01/08/2025 8:00 AM CDT Appointment [facility] [address] [place] [address] 01/08/2025 9:00 AM CDT Office Visit [facility] - GI [address] [facility], [place] [phone] Amos Pabon MD [address] [place] [address] [place] [address] documented as of this encounter Goals Goal [...] as of this encounter Visit Diagnoses Diagnosis Closed fracture of left hip, initial encounter (HCC)- Primary Post-traumatic osteoarthritis of left hip Secondary localized osteoarthrosis, pelvic region and thigh documented in this encounter Care Teams Hydro Mechanic Relationship Specialty Start Date End Date Major Kraft MD PCP - General 07/01/21 06/08/22 Eric Oconnell MD Hospitalist 10/10/21 documented as of this encounter
--- OUTSIDE RECORDS SUMMARY | 2024-10-19 20:13 | XMS_ITS | Encounter Summary ---
Author Organization [facility] Address [address] [facility] [place] [address] Care Team Providers Care Investigative Agent Name Role Phone Major Kraft MD Primary Care Provider + [phone] Eric Oconnell MD Unavailable + [phone] Encounter Details Date Type Department Care Team (Late st Contact Info) Description 01/02/2022 Orders Only [facility] - [address] [facility], [place] [address] Fouzia Payne, RN Social History Tobacco Use Types Packs/Day Years [...] st Contact Info) Description 11/29/2024 8:30 AM NATURAL GAS PLANT TECHNICIAN Office Visit [facility] - Orthopedic Surgery [address] [facility] [place] [address] Toño Cabrera MD [address] [facility] [address] [place] [address] 01/08/2025 8:00 AM CDT Appointment [facility] [address] [place] [address] 01/08/2025 9:00 AM CDT Office Visit [facility] - GI [address] [facility], [place] [address] Amos Pabon MD [address] [place] [address] [place] [address] documented as of this encounter Goals Goal [...] on filedocumented in this encounter Care Teams Investigative Agent Relationship Specialty Start Date End Date Major Kraft MD PCP - General 07/01/21 06/08/22 Eric Oconnell MD Hospitalist 10/10/21 documented as of this encounter
--- OUTSIDE RECORDS SUMMARY | 2024-10-19 20:13 | XMS_ITS | Encounter Summary ---
Author Organization [facility] Health Address [address] [facility] [place] [address] Care Team Providers Care Agricultural Equipment Mechanic Name Role Phone Major Kraft MD Primary Care Provider + [phone] Eric Oconnell MD Unavailable + [phone] Encounter Details Date Type Department Care Team (Late st Contact Info) Description 01/30/2022 Orders Only [facility] [address] [place] [address] Mila Clemons, RN Post-traumatic osteoarthritis of left hip Social History [...] st Contact Info) Description 11/29/2024 8:30 AM TRUST ADMINISTRATOR Office Visit [facility] - Orthopedic Surgery [address] [facility] [place] [address] Toño Cabrera MD [address] [facility] 280 [place] [address] 01/08/2025 8:[address] [facility] [address] [place] [address] 01/08/2025 9:00 AM CDT Office Visit [facility] - GI [address] [facility], [place] [address] Amos Pabon MD [address] [place] [address] [place] [address] documented as of this encounter Goals Goal [...] as of this encounter Visit Diagnoses Diagnosis Post-traumatic osteoarthritis of left hip- Primary Secondary localized osteoarthrosis, pelvic region and thigh documented in this encounter Care Teams Agricultural Equipment Mechanic Relationship Specialty Start Date End Date Major Kraft MD PCP - General 07/01/21 06/08/22 Eric Oconnell MD Hospitalist 10/10/21 documented as of this encounter
--- OUTSIDE RECORDS SUMMARY | 2024-10-19 20:13 | XMS_ITS | Encounter Summary ---
Author Organization [facility] Health Address [address] [place] [address] Care Team Providers Care Paraplanner Name Role Phone Major Kraft MD Primary Care Provider [phone] Eric Oconnell MD Unavailable + [phone] Encounter Details Date Type Department Care Team (Latest Contact Info) Description 01/07/2022 9:54 AM CDT - 01/07/2022 11:59 PM CDT Hospital Encounter [facility] 1L [address] [facility] [place] [address] David Burns MD [address] [place], [place] [phone] Discharge Disposition: Home or Self Care Social [...] 11/17/2023 vitamin D, ergocalciferol, (DRISDOL) 1.25 MG (86719 UT) capsule Take 1 (one) capsule by mouth every 7 days for 90 days 4 capsule 2 12/26/2021 03/26/2022 documented as of this encounter Plan of Treatment Upcoming Encounters Date Type Department Care Team (Late st Contact Info) Description 11/29/2024 8:30 AM MOBILE PHLEBOTOMIST Office Visit [facility] - Orthopedic Surgery [address] [place] [address] Toño Cabrera MD 1031 [facility] [address] [place] [address] 01/08/2025 8:[address] [facility] [place] 1201 [place] [phone] 01/08/2025 9:00 AM CDT Office [place] [facility] [place] [address] [place] [address], [place] [address] Amos Pabon MD [address] [place] [address] [place] [address] documented as of this encounter Goals Goal [...] Name Priority Date/Time Associated Diagnosis Comments XR FEMUR LEFT 2VW Routine 01/07/2022 10: 05 AM CDT Orthopedic aftercare documented in this encounter Results * XR FEMUR LEFT 2VW (01/07/2022 10:05 AM CDT) Anatomical Region Laterality Modality Lower Extremity Radiographic Юлия ging 01/07/2022 10:3 9 AM CDT Impressions 01/07/2022 10:46 AM CDT IMPRESSION: Femoral neck fracture, unchanged in alignment. This report was electronically signed by VALENTE MCDUFFIE MD ??on 01/07/2022 10:46 AM . Narrative 01/07/2022 10:46 AM CDT Exam: ??XR FEMUR LEFT 2VW History: ??Z47.89: Orthopedic aftercare Comparison: 12/18/2021 Findings: A moderately to severely displaced femoral neck fracture is not significantly changed in alignment. A 2 cm high attenuation object adjacent to the inferior aspect of the femoral head and acetabulum may represent a displaced fracture fragment. There is no dislocation. The joint space is maintained. Procedure Note Valente Mcduffie MD - 01/07/2022 Exam: XR FEMUR LEFT 2VW History: Z47.89: Orthopedic aftercare Comparison: 12/18/2021 Findings: A moderately to severely displaced femoral neck fracture is not significantly changed in alignment. A 2 cm high attenuation object adjacent to the inferior aspect of the femoral head and acetabulum may represent a displaced fracture fragment. There is no dislocation. The joint space is maintained. IMPRESSION: Femoral neck fracture, unchanged in alignment. This report was electronically signed by VALENTE MCDUFFIE MD on01/07/2022 10:46 AM . David Burns MD DIAGNOSTIC IMAGING O RDERABLES documented in this encounter Visit Diagnoses Diagnosis Orthopedic aftercare Unspecified orthopedic aftercare documented in this encounter Care Teams Paraplanner Relationship Specialty Start Date End Date Major Kraft MD PCP - General 07/01/21 06/08/22 Eric Oconnell MD Hospitalist 10/10/21 documented as of this encounter
--- OUTSIDE RECORDS SUMMARY | 2024-10-19 20:13 | XMS_ITS | Encounter Summary ---
Author Organization [facility] Health Address [address] [place] [address] Care Team Providers Care Restorative Coordinator Name Role Phone Major Kraft MD Primary Care Provider + [phone] Eric Oconnell MD Unavailable + [phone] Reason for Visit * Reason Onset Date Comments Pre-op Instructions 02/16/2022 Encounter Details Date Type Department Care Team (Late st Contact Info) Description 02/16/2022 Patient Outreach [facility] [address] [place] [address] Sheridan Dorman RN Pre-op Instructions Social History Tobacco Use [...] Miscellaneous Notes * Telephone Encounter - Sheridan Dorman RN - 02/16/2022 2:26 PM CDT Pt added on for EGD while in GI clinic. Pt provides that main number at facility is [phone] Faxed info to Patient: Lukas Diaz 83 Your upper endoscopy is scheduled on 03/05/2022- at 1045am. Arrive at 0945am -Stop any blood thinners such as Plavix, Clopidogrel, Warfarin, Coumadin, Brilinta or Effient 5 days before your procedure. Stop Eliquis, Xarelto, Cilostazol, Pletal 48 hours prior to your procedure.Stop Pradaxa 3 days before your procedure. (Contact your primary doctor to make sure this is safe for you) -You are not to have anything to eat or drink after midnight the day of your procedure except a sipof water with your morning medications. Do not take Lisinopril in the morning of your procedure if you are on it. Do not take any oral diabetes medication the morning of your procedure if you are on it. And do not take any fast acting insulin the morning of your procedure if you are on it. -You MUST have a snaker tractor driver to drive you home. (You can NOT take a bus, cab, LYFT or UBER) -You will be at our facility from start to finish (registration, pre op, procedure, recovery) for approximately 4 hours total. -Your procedure will be in our [facility]. The new address will be at [address] [place] [address] to the new parking garage. -Come in on the ORANGE elevators of the parking garage. Endoscopy is on the LEVEL 1 of the hospital. [facility] -Please bring a current list of your medications -Main endoscopy department number is [phone] Prior to arrival, we will need to be aware of any recent COVID exposures or symptoms. Masks are required while in the hospital documented in this encounter Plan of Treatment Upcoming Encounters Date Type Department Care Team (Late st Contact Info) Description 11/29/2024 8:30 AM OFFICE ANALYST Office Visit [facility] - Orthopedic Surgery [address] [place] [address] Toño Cabrera MD 1031 [facility] 280 [place] [address] 01/08/2025 8:00 AM CDT Appointment [facility] [address] [place] [address] 01/08/2025 9:00 AM CDT Office Visit [facility] - GI 1225 [facility], [place] [address] Amos Pabon MD [address] [place] [address] [place] [address] documented as of this encounter Goals Goal [...] on filedocumented in this encounter Care Teams Restorative Coordinator Relationship Specialty Start Date End Date Major Kraft MD PCP - General 07/01/21 06/08/22 Eric Oconnell MD Hospitalist 10/10/21 documented as of this encounter
--- OUTSIDE RECORDS SUMMARY | 2024-10-19 20:13 | XMS_ITS | Encounter Summary ---
Author Organization [facility] Address [address] [facility] [place] [address] Care Team Providers Care Gis Analyst Name Role Phone Major Kraft MD Primary Care Provider [phone] Eric Oconnell MD Unavailable + [phone] Encounter Details Date Type Department Care Team (Late st Contact Info) Description 12/18/2021 7:27 AM MANAGER BANK Anesthesia Event [facility] [address] [place] [address] Everardo Villegas MD 1201 [place] [address] Alicia Garcia, GRADING MACHINE OPERATOR-GERENTOLOGICAL PHYSIOTHERAPIST [address] [place] [address] Anesthesia Record Procedure Summary Procedure Name Responsible Anesthesiologist Anesthesia Start Time Anesthesia Stop Time PERCUTANEOUS PINNING/CANNULATED SCREW (FEMORAL NECK/HIP) (Left) Events No events on file. Meds * Agents No agents on file. * Blood No blood administrations on file. Lines, Drains, and Airways No LDAs on file. documented in this encounter Social History Tobacco [...] money to buy more. Never true 12/18/19 Within the past 12 months, t he [...] as of this encounter Progress Notes * Everardo Villegas MD - 12/18/2021 7:00 AM CST ANESTHESIA PREOPERATIVE EVALUATION NOTE Procedure: PERCUTANEOUS PINNING/CANNULATED SCREW (FEMORAL NECK/HIP) (Left ) NPO status: Since Midnight (12/18/2021 6:56 AM) Vitals: Patient Vitals for the past 6 hrs: BP Temp SpO2 Pain Rating Score #1 12/18/21 0654 -- 97.7 ??F (36.5 ??C) -- 9 12/18/21 0615 124/83 -- 94 % -- 12/18/21 0448 -- -- -- 12/18/21 0445 149/95 -- 97 % -- 12/18/21 0430 135/83 -- 96 % -- ANESTHESIA PRE-EVALUATION NOTE ANESTHESIA PLAN BMI, Height, Weight Tobacco History Estimated body mass index is 25.06 kg/m?? as calculated from the following: Height as of this encounter: 1.702 m (5' 7 ). Weight as of this encounter: 72.6 kg (160 lb). Social History Tobacco Use Smoking Status Current Every Day Smoker ??? Packs/day: 0.25 Smokeless Tobacco Never Used Tobacco Comment less than 5 cigarettes a day Alcohol History Drug History Social History Substance and Sexual Activity Alcohol Use Yes Comment: occasional Social History Substance and Sexual Activity Drug Use Yes ??? Types: Marijuana Outpatient Medications: Inpatient Medications: No outpatient medications have been marked as taking for the 12/17/21 encounter (Hospital Encounter). Current Facility-Administered Medications Medication Dose Last Admin ??? busPIRone 5 mg ??? folic acid 1 mg ??? furosemide 80 mg ??? gabapentin 100 mg ??? lactated ringers New Bag at 12/18/21 0430 ??? lactulose 5 mL ??? melatonin 3 mg ??? mirtazapine 30 mg ??? pantoprazole EC 40 mg ??? propranolol 10 mg ??? spironolactone 50 mg Allergies: Allergies Allergen Reactions ??? Peanut-Derived Anaphylaxis Relevant Problems No relevant active problems Problem List: Patient Active Problem List Diagnosis Date Noted ??? Hip pain 12/18/2021 Priority: Not Prioritized ??? Tachycardia 12/18/2021 Priority: Not Prioritized ??? Closed fracture of left hip 12/18/2021 Priority: Not Prioritized ??? Elevated liver enzymes 12/18/2021 Priority: Not Prioritized ??? Hepatic cirrhosis 10/01/2021 Priority: Not Prioritized Medical History: Past Medical History: Diagnosis Date ??? Hypertension Surgical History: No past surgical history on file. Covid Vaccine: Lab Results: Recent Labs Component Name 12/18/21416 SARSCOV2 Not detected Recent Labs Component Name 12/17/212257 WBC 10.1 RBC 3.99* HCT 35.2 HGB 12.3 PLTCOUNT 192 MCV 88.2 MCH 30.8 MCHC 34.9 MPV 9.7 Recent Labs Component Name 12/18/214 12/18/2141612/18/21416 ABORH B POS - B POS ABSCG - - NEG - = values in this interval not displayed. Recent Labs Component Name 12/17/212256 POTASSIUM 4.4 CALCIUM 8.8 CO2 25 GLUCOSE 90 BUN 10 CREATININE 0.44* Recent Labs Component Name 12/17/21 2311 PT 15.4* INR 1.2 No results found for requested labs within last 120 days. Recent Labs Result Component Current Result Alkaline Phosphatase 179 (H) (12/17/2021) ALT 74 (H) (12/17/2021) Anion Gap 16 (12/17/2021) AST 127 (H) (12/17/2021) eGFR by CKD-EPI >90 (12/17/2021) GER BANK documented in this encounter Plan of Treatment Upcoming Encounters Date Type Department Care Team (Late st Contact Info) Description 11/29/2024 8:30 AM MANAGER BANK Office Visit [facility] - Orthopedic Surgery [address] [place] [address] Toño Cabrera MD 1031 [facility] 280 [place] [address] 01/08/2025 8:00 AM CDT Appointment [facility] [address] [place] [address] 01/08/2025 9:00 AM CDT Office Visit [facility] - GI 12[address] [facility], [place] [address] Amos Pabon MD [address] [place] [address] [place] [address] documented as of this encounter Goals Goal [...] on filedocumented in this encounter Care Teams Gis Analyst Relationship Specialty Start Date End Date Major Kraft MD PCP - General 07/01/21 06/08/22 Eric Oconnell MD Hospitalist 10/10/21 documented as of this encounter
--- OUTSIDE RECORDS SUMMARY | 2024-10-19 20:13 | XMS_ITS | Encounter Summary ---
Author Organization [facility] Address [address] [facility] [place] [address] Care Team Providers Care Dredge Pumper Name Role Phone Major Kraft MD Primary Care Provider [phone] Eric Oconnell MD Unavailable + [phone] Encounter Details Date Type Department Care Team (Late st Contact Info) Description 02/22/2022 Orders Only [facility] [place] [address] [place] [address], [place] [address] Amos Pabon MD [address] [place] [address] [place] [address] Social History Tobacco Use Types Packs/Day Years [...] st Contact Info) Description 11/29/2024 8:30 AM ABORIGINAL CEREMONIAL CELEBRANT Office Visit [facility] [address] [place] [address] Toño Cabrera MD [address] [address] 01/08/2025 8:00 AM CDT Appointment [facility] 12[address] [place] [address] 01/08/2025 9:00 AM CDT Office Visit [facility] - GI [address] [facility], [place] [address] Amos Pabon MD [address] [place] [address] [place] [address] documented as of this encounter Goals Goal [...] on filedocumented in this encounter Care Teams Dredge Pumper Relationship Specialty Start Date End Date Ampadu, Major W, MD PCP - General 07/01/21 06/08/22 Eric Oconnell MD Hospitalist 10/10/21 documented as of this encounter
--- OUTSIDE RECORDS SUMMARY | 2024-10-19 20:13 | XMS_ITS | Encounter Summary ---
Author Organization [facility] Address [address] [facility] [place] [address] Care Team Providers Care Boat Hand Name Role Phone Major Kraft MD Primary Care Provider [phone] Eric Oconnell MD Unavailable + [phone] Reason for Visit * Reason Onset Date Comments Med Question 12/22/2021 Encounter Details Date Type Department Care Team (Late st Contact Info) Description 12/22/2021 Telephone [facility] - Orthopedics 12[address] [place] [address] David Burns MD [address] [place] [address] Med Question Social History Tobacco Use Types [...] encounter Miscellaneous Notes * Telephone Encounter - Ivanna Walker - 12/22/2021 4:32 PM CST Patient is asking why was he not given a prescription for the Percocet, he was given Tramadol and it is not helping him. [facility] is in a [facility]. [facility] [phone] RAL ASSEMBLER documented in this encounter Plan of Treatment Upcoming Encounters Date Type Department Care Team (Late st Contact Info) Description 11/29/2024 8:30 AM GENERAL ASSEMBLER Office Visit [facility] - Orthopedic Surgery [address] [facility] [place] [address] Toño Cabrera MD 1031 [facility] 280 [place] [address] 01/08/2025 8:00 AM CDT Appointment [facility] 1201 [place] [address] 01/08/2025 9:00 AM CDT Office Visit [facility] - [facility] [address] [place] [address], [place] [address] Amos Pabon MD [address] [place] [address] [place] [address] documented as of this encounter Goals Goal [...] on filedocumented in this encounter Care Teams Boat Hand Relationship Specialty Start Date End Date Major Kraft MD PCP - General 07/01/21 06/08/22 Eric Oconnell MD Hospitalist 10/10/21 documented as of this encounter
--- OUTSIDE RECORDS SUMMARY | 2024-10-19 20:13 | XMS_ITS | Encounter Summary ---
Author Organization [facility] Health Address [address] [facility] [place] [address] Care Team Providers Care Monogram And Letter Paster Name Role Phone Eric Oconnell MD Unavailable [phone] Raya Carty PA-C Primary Care Provider Reason for Visit * Reason Onset Date Comments Pre-op Instructions 06/11/2022 Encounter Details Date Type Department Care Team (Late st Contact Info) Description 06/11/2022 Patient Outreach [facility] [address] [place] [address] Sheridan Dorman RN Pre-op Instructions Social History [...] Telephone Encounter - Sheridan Dorman RN - 06/17/2022 10:34 AM CDT Pt reconfirms egd tomorrow at 9 * Telephone Encounter - Sheridan Dorman RN - 06/11/2022 11:32 AM CDT Pt confirmed procedure appointment for EGD on 06/18/2022 at 0900a Verbalized understanding of prep instructions including NPO after midnight. Will arrive 1 hour prior to procedure time. 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 This pt is not taking blood thinning medications. documented in this encounter Plan of Treatment Upcoming Encounters Date Type Department Care Team (Late st Contact Info) Description 11/29/2024 8:30 AM MECHANICAL ENGINEERING TECHNOLOGIST Office Visit [facility] - Orthopedic Surgery [address] [facility] [place] [address] Toño Cabrera MD 1031 [facility] 280 [place] [address] 01/08/2025 8:00 AM CDT Appointment [facility] 12[address] [place] [address] 01/08/2025 9:00 AM CDT Office Visit [facility] - [facility] 1225 [facility] [place] [address] Amos Pabon MD [facility] 2L [place] [address] documented as of this encounter Goals Goal [...] on filedocumented in this encounter Care Teams Monogram And Letter Paster Relationship Specialty Start Date End Date Raya Carty PA-C [address] [place] [phone] PCP - General 06/09/22 07/05/22 Eric Oconnell MD Hospitalist 10/10/21 documented as of this encounter
--- OUTSIDE RECORDS SUMMARY | 2024-10-19 20:13 | XMS_ITS | Encounter Summary ---
Author Organization [facility] Health Address [address] [facility] [place] [address] Care Team Providers Care Newspaper Correspondent Name Role Phone Major Kraft MD Primary Care Provider [phone] Eric Oconnell MD Unavailable + [phone] Reason for Visit * Reason Comments Follow-up Encounter Details Date Type Department Care Team (Late st Contact Info) Description 01/07/2022 10:00 AM CDT Office Visit [facility] - Orthopedics [address] [facility] [place] [address] David Burns MD [address] [place] [address] Closed fracture of left hip, initial encounter (HCC) (Primary Dx) Social History Tobacco Use [...] as of this encounter Progress Notes * David Burns MD - 01/07/2022 9:42 AM CDT Orthopaedic Trauma Surgery Clinic Note Lukas Diaz 36 year old male CSN: [id number] Date of service: 01/07/2022 HPI Lukas Diaz is a 36 year old male who had an old left femoral neck fracture and was treated with NWB. This is the patient's first visit since being discharged from hospital. Pain has not been controlled since the last clinic visit. The pain is located hip. The patient has been NWB of the leftlower extremity with crutches since He was last seen. No other orthopedic complaints at this time. Denies any recent fever or chills, tingling, numbness. He is a smoker. Review of Systems A complete organ system review completed and is only significant for what is documented in HPI. Allother systems are negative. Medical History Past Medical History: Diagnosis Date ??? Hypertension Non-contributory Surgical History No past surgical history on file. Non-contributory MEDICATIONS Current Outpatient Medications on File Prior to [...] and evening meal for 90 days ??? folic acid (FOLVITE) 1 MG tablet Take 1 mg by mouth once daily ??? furosemide (LASIX) 20 MG tablet Take 60 mg by mouth once daily ??? lactulose (CHRONULAC) 10 GM/15ML solution Take 5 mL by mouth 3 times daily ??? mirtazapine (REMERON) 30 MG tablet Take [...] 7.5 mg by mouth at bedtime ??? traMADol (ULTRAM) 50 MG tablet Take 1 (one) tablet by mouth every 6 hours as needed 28 tablet 0 ??? vitamin D, ergocalciferol, (DRISDOL) 1.25 MG (37222 UT) capsule Take 1 (one) capsule by mouth every 7 days for 90 days 4 capsule 2 No current facility-administered medications on file prior to visit. Allergies Allergies Allergen Reactions ??? Peanut-Derived Anaphylaxis Family History family history is not on file. Non-contributory Social History Social History Tobacco Use ??? Smoking status: Current Every Day Smoker Packs/day: 0.25 ??? Smokeless tobacco: Never Used ??? Tobacco comment: less than 5 cigarettes a day Substance Use Topics ??? Alcohol use: Yes Comment: occasional- last drink was Friday 12/15 Physical Exam There were no vitals taken for this visit. General exam: patient cooperative with exam Constitutional: well developed, well nourished, no acute distress Head: normocephalic, atraumatic ENT: moist oral mucosa Eyes: non-icteric sclera Cardiovascular: regular rate Respiratory: effort normal, no respiratory distress Neurological: awake, AOx4 Psychiatric: no distress, mood and affect normal, behavior normal, judgment and thought content normal. Left lower extremity: Incision: none. There is no tenderness of the hip. ROM of hip decreased due to pain. intact EHL/FHL/GS/AT, Sensation: intact to light touch distally, 2+DP. Gait is not tested. Imaging Results independently reviewed in clinic. XR 2 view(s) left hip: Demonstrates displaced femoral neck fracture. Assessment and Plan Closed fracture of left hip, initial encounter 1. Mr. Diaz was counseled as to his diagnosis 2. Images reviewed in office with patient 3. He demonstrated understanding. We discussed WILTON, need for medical clearance and need to quit smoking. 4. The patient's weight bearing status will be NWB of the left lower extremity 5. Follow up with joint service 6. He will call in the interim with any questions or concerns. David Burns MD 01/07/2022 9:42 AM documented in this encounter Plan of Treatment Upcoming Encounters Date Type Department Care Team (Late st Contact Info) Description 11/29/2024 8:30 AM DIRECTOR OF PUBLIC WORKS Office Visit [facility] - [facility] Surgery [address] [facility] [address] Toño Cabrera MD 1031 [facility] 280 [place] [address] 01/08/2025 8:00 AM CDT Appointment [facility] [address] [place] [address] 01/08/2025 9:00 AM CDT Office Visit [facility] [address] [place] [address], [place] [address] Amos Pabon MD [address] [place] [address] [place] [address] documented as of this encounter Goals Goal [...] of left hip, initial encounter (HCC)- Primary documented in this encounter Care Teams Newspaper Correspondent Relationship Specialty Start Date End Date Major Kraft MD PCP - General 07/01/21 06/08/22 Eric Oconnell MD Hospitalist 10/10/21 documented as of this encounter
--- OUTSIDE RECORDS SUMMARY | 2024-10-19 20:13 | XMS_ITS | Encounter Summary ---
Author Organization [facility] Address [address] [place] [address] Care Team Providers Care Renewable Energy Technician Name Role Phone Eric Oconnell MD Unavailable [phone] Gregorio James MD Primary Care Provider [phone] Reason for Referral * Radiology Services (Routine) - Closed Specialty Diagnoses / Procedures Referred By Rod yuong Referred To Contact Ultrasound Diagnoses Cirrhosis of liver with ascites, unspecified hepatic cirrhosis type (HCC) Procedures US ABDOMEN LIMITED Klarissa Rutledge APRN-CNP [address] [place] [address] [address] [place] [address] [id number] [place] [address] Referral ID Status Reason Start Date Expiration Date Visits Re quested Visits Authorized [id number] Closed 02/19/2023 02/19/2024 1 1 Reason for Visit * Reason Comments Cirrhosis Encounter Details Date Type Department Care Team (Late st Contact Info) Description 02/19/2023 10:30 AM CDT Office Visit [facility] - [address], [place] [phone] Klarissa Rutledge APRN-CNP [address] [place] [address] [address] [place] [address] Cirrhosis of liver with ascites, [...] Sign Reading Time Taken Comments Blood Pressure 133/85 02/19/2023 10:44 AM CDT Pulse 74 02/19/2023 10:44 AM CDT Temperature - - Respiratory Rate 16 02/19/2023 10:44 AM CDT Oxygen Saturation 98% 02/19/2023 10:44 AM CDT Inhaled Oxygen Concentration - - Weight 87.7 kg (193 lb 6.4 oz) 02/19/2023 10:44 AM CDT Height 170.2 cm (5' 7 ) 02/19/2023 10:44 AM CDT Body Mass Index 30.29 02/19/2023 10:44 AM CDT documented in this [...] this encounter Patient Instructions * Patient Instructions* Klarissa Rutledge APRN-CNP - 02/19/2023 11:23 AM CDT blood work and ultrasound soon locally Continue lactulose and xifaxin Continue furosemide and spironolactone Return to the liver clinic in 6 months with ultrasound same day. I encourage complete abstinence from alcohol documented in this encounter Progress Notes * Klarissa Rutledge APRN-CNP - 02/19/2023 11:02 AM CDT I saw Mr. Diaz in [facility] at [facility] today for follow up visit regarding: Past Visit Note. Lukas Diaz 36 year old male was [...] was otherwise negative. Positives are mentioned above. Chief Complaint Patient presents with ??? Cirrhosis Patient Active Problem List: Hepatic cirrhosis (CMS/HCC) Chronic left hip pain Tachycardia Closed fracture of left hip (CMS/HCC) Elevated liver enzymes Vitamin D deficiency Nicotine abuse Interim history: Lukas Diaz is a 37 year old male in clinic for follow up regarding alcohol cirrhosis. He was previously seen by Dr. Pabon in 01/2022. He is primarily wheelchair bound d/t femur fracture. Has not had surgical intervention d/t dental work required prior. He resides at [facility] d/t cirrhosis and femur fracture. He had recent hospitalization at [facility] for hallucinations, reportedly auditory and visual hallucinations. He was given Ativan for 8 days which helped. He has some occasional hallucinations but not as bad as initially. He is on multiple psychotropicmedications, managed by psychiatrist. His most recent alcohol use was champagne on [place]. He takes 20 mg of furosemide and 50 mg of spironolactone and has no fluid re acummulation. HE controlled with lactulose, xifaxin. He has no bloody or melanous stools. He has possible history of bleeding varices, s/p banding. No EV seen on EGD 05/2022. He continues to take propanolol 10 mg BID, HR 74.No additional concerns today. Current Outpatient Medications Medication Sig ??? baclofen (LIORESAL) 10 MG tablet Take 2 (two) tablets by mouth 2 times daily May cause drowsiness. ??? busPIRone (BUSPAR) 5 MG tablet Take 2 (two) tablets by mouth 2 times daily ??? citalopram (CELEXA) 20 MG tablet Take 1 (one) tablet by mouth once daily ??? ferrous sulfate 325 (65 FE) MG tablet Take 1 (one) tablet by mouth once daily ??? folic acid (FOLVITE) 1 MG tablet Take 1 (one) tablet by mouth once daily ??? furosemide (LASIX) 20 MG tablet Take 1 (one) tablet by mouth once daily ??? lactulose (CHRONULAC) 10 GM/15ML solution Take 5 mL by mouth 3 times daily ??? Melatonin 3 MG ??? propranolol (INDERAL) 10 MG tablet Take 1 (one) tablet by mouth 2 times daily ??? rifAXIMin (Xifaxan) 550 MG tablet Take 1 (one) tablet by mouth 2 times daily ??? spironolactone (ALDACTONE) 50 MG tablet Take 1 (one) tablet by mouth once daily ??? THIAMINE HCL PO Take 100 mg by mouth ??? traMADol (ULTRAM) 50 MG tablet Take 1 (one) tablet by mouth every 6 hours as needed No current facility-administered medications for this visit. Social History Social History Narrative ??? Not on file Review of systems: Chest pain: none. Shortness of breath: none. Nausea and vomiting: none. Constipation or diarrhea: none. Upper or lower GI bleeding: none. On exam today, he appeared obese, alert and anicteric. I reviewed today's vital signs with the patient. Vitals: 02/19/23 1044 BP: 133/85 Pulse: 74 Resp: 16 SpO2: 98% Weight: 87.7 kg (193 lb 6.4 oz) Height: 1.702 m (5' 7 ) Body mass index is 30.29 kg/m??. Wt Readings from Last 3 Encounters: 02/19/23 87.7 kg (193 lb 6.4 oz) 06/18/22 79.1 kg (174 lb 6.4 oz) 03/05/22 78 kg (172 lb) . Lungs were clear to auscultation bilaterally. Heart sounds were regular rate and rhythm. There were no murmurs. Abdomen was obese, soft and nontender. Liver edge palpable: no. Spleen palpable: no. Ascites: none. Hernias: none. Pretibial edema: none. Relevant test results: Recent Labs Component Name 02/16/22 1426 01/05/22 0000 12/25/21 0000 12/19/21 0153 12/19/21 0135 12/17/21 2311 12/17/21 2258 12/17/21 2257 11/14/21 0000 TBILI 0.5 - - - 1.0 - - 1.3* - TBIL - 0.4 0.3 - - - - - 0.5 ALKPHOS 130 155 207 - 180* - - 179* 98 ALT 20 27 45 - 67* - - 74* 22 AST 24 25 37 - 91* - - 127* 33 ALB 4.0 3.2 3.0 - 2.7* - - 3.0* 3.9 NA 139 - - - 134* - - 131* - SODIUM - 138 135 - - - - - 136 POTASSIUM 3.7 4.0 4.3 - 3.9 - - 4.4 4.0 CO2 31* 23 26 - 23 - - 25 27 CREATININE 0.76 - - - 0.56* - - 0.44* - BUN 9 10 10 - 9 - - 10 14 HGB 14.6 14.0 13.4 13.0 - - 12.3 - 13.1 WBC 9.7 7.1 8.9 7.5 - - 10.1 - 6.3 PLTCOUNT 184 - - 198 - - 192 - - PLT - 250 271 - - - - - 143 INR 1.0 1.0 1.1 - - - - - 1.1 - = values in this interval not displayed. US 09/2021 IMPRESSION: ?? 1.Hepatic cirrhosis with sequela of portal hypertension (recanalization of the umbilical vein) without discrete hepatic lesion. 2.Splenomegaly. 3.No evidence of cholelithiasis or acute cholecystitis. EGD 02/2022 Impression: ? - LA Grade C reflux esophagitis. ? - Esophageal mucosal changes suggestive of ? long-segment Holt's esophagus. ? - Non-bleeding gastric ulcers with a clean ulcer ? base (Jett Class III). Biopsied. ? - Normal examined duodenum. Recommendation: ? - Patient has a contact number??available for ? emergencies. The signs and symptoms of potential ? delayed complications were discussed with the ? patient. Return to normal activities tomorrow. ? Written discharge instructions were provided to the ? patient. ? - Discharge patient to home (ambulatory). ? - Resume previous diet. ? - Continue present medications. ? - No aspirin, ibuprofen, naproxen, or other ? non-steroidal anti-inflammatory drugs. ? - Follow an antireflux regimen. ? - Await pathology results. ? - Repeat upper endoscopy in 3 months to check ? healing. ? - Return to referring physician at appointment to ? be scheduled. ? - The findings and recommendations were discussed ? with the patient. EGD 05/2022 Impression: ? - Esophageal mucosal changes consistent with ? long-segment Holt's esophagus. No specimens ? collected. ? - Portal hypertensive gastropathy. ? - Normal duodenal bulb and second portion of the ? duodenum. Recommendation: ? - Resume previous diet. ? -Continue PPI BID, reflux precautions ? - Return to GI clinic as previously scheduled. ? - Discharge patient to home. ? - Continue present medications. ? - Patient has a contact number available for ? emergencies. The signs and symptoms of potential ? delayed complications were discussed with the ? patient. Return to normal activities tomorrow. ? Written discharge instructions were provided to the ? patient. ? - Discharge patient to home (ambulatory). ? - Follow an antireflux regimen. Assessment: 1. cirrhosis contributed to alcohol use. 2. hx of varices, s/p banding. none on EGD 05/2022. propanolol 10 mg BID 3. Barretts esophagus. protonoix 4. HE; lactulose, xifaxin 5. ascites, LLE; controlled with 20/50. 6. Femur fracture. No surgical intervention d/t dental work required prior Plan: 1. He needs blood work and ultrasound updated for HCC screening. 2. He will get labs and ultrasound locally soon 3. He will get ultrasound and blood work with return to clinic in 6 months 4. Encouraged complete abstincence from alcohol 5. He will continue current diuretics, Current lactulose and xifaxin dosing. 6. Specific recommendations were provided regarding diet and exercise including the avoidance of sugar sweetened beverages and dietary trans-fats An appointment was scheduled for him to see me in followup in 6 months. Copy to: Gregorio James MD [address] [place] [phone] EMILY Cisneros [facility] Division of Gastroenterology and Hepatology Collaborating physician: Dr. Amos Pabon February 23, 2023 Orders Placed This Encounter ??? US ABDOMEN LIMITED ??? US ABDOMEN LIMITED ??? CBC WITH DIFFERENTIAL ??? COMPREHENSIVE METABOLIC PANEL ??? ALPHA FETOPROTEIN BLOOD TUMOR MARKER ??? PT-INR documented in this encounter Plan of Treatment Upcoming Encounters Date Type Department Care Team (Late st Contact Info) Description 11/29/2024 8:30 AM OPERATIONS AND MAINTENANCE SUPERVISOR Office Visit [facility] - Orthopedic Surgery [address] [place] [address] Toño Cabrera MD [address] [facility] [address] [place] [address] 01/08/2025 8:00 AM CDT Appointment [address] [phone] 01/08/2025 9:00 AM CDT Office Visit [facility] - GI [address] [facility], [place] [address] Amos Pabon MD [address] [place] [address] [place] [address] Scheduled Orders Name Type Priority Associated Diagnoses Orde r Schedule CBC WITH DIFFERENTIAL Lab Routine Cirrhosis of liver with ascites, unspecified hepatic cirrhosis type (HCC) Ordered: 02/19/2023 COMPREHENSIVE METABOLIC PANEL Lab Routine Cirrhosis of liver with ascites, unspecified hepatic cirrhosis type (HCC) Ordered: 02/19/2023 ALPHA FETOPROTEIN BLOOD TUMOR MARKER Lab Routine Cirrhosis of liver with ascites, unspecified hepatic cirrhosis type (HCC) Ordered: 02/19/2023 PT-INR Lab STAT Cirrhosis of liver with ascites, unspecified hepatic cirrhosis type (HCC) Ordered: 02/19/2023 documented as of this encounter Goals Goal [...] documented as of this encounter Results * US ABDOMEN LIMITED (08/25/2023 8:34 AM CDT) Anatomical Region Laterality Modality Abdomen Ultrasound 08/25/2023 8:29 AM CDT Impressions 08/25/2023 10:18 AM CDT Impression: 1.Hepatic cirrhosis with sequela of portal hypertension including recanalization of the umbilical vein. 2.Liver Visualization Score B: Moderate limitations. 3.US-1 Negative. Repeat surveillance US in 6 months. Report dictated by Hany Cornelius MD, (radiology director). I, Bina Perez MD have personally reviewed and interpreted this examination/study. > Interpreting Provider: Bina Perez MD on 08/25/2023 10:18 AM Narrative 08/25/2023 10:18 AM CDT PROCEDURE: ??US ABDOMEN LIMITED, DATE/TIME OF EXAM: ??08/25/2023 7:53 AM, LOCATION ??[facility] INDICATION: K74.60: Cirrhosis of liver with [...] OF EXAM: 08/25/2023 7:53 AM, LOCATION [facility] INDICATION: K74.60: Cirrhosis of liver with [...] Report dictated by Hany Cornelius MD, (radiology director). I, Bina Perez MD have personally reviewed and interpreted this examination/study. > Interpreting Provider: Bina Perez MD on 08/25/2023 10:18 AM Klarissa Richey Rutledge HEALTH CONCIERGE[employer]LYT[employer] SENIOR MANAGER US ORDERABL ES documented in this encounter Visit Diagnoses Diagnosis Cirrhosis of liver with ascites, unspecified hepatic cirrhosis type (HCC)- Primary Cirrhosis of liver with ascites, unspecified hepatic cirrhosis type (HCC) documented in this encounter Care Teams Renewable Energy Technician Relationship Specialty Start Date End Date Gregorio James MD [address] [place] [phone] PCP - General 08/11/22 05/16/24 Eric Oconnell MD Hospitalist 10/10/21 documented as of this encounter
--- OUTSIDE RECORDS SUMMARY | 2024-10-19 20:13 | XMS_ITS | Encounter Summary ---
Author Organization [facility] Address [address] [place] [address] Care Team Providers Care Railroad Car Cleaning Supervisor Name Role Phone Major Kraft MD Primary Care Provider [phone] Eric Oconnell MD Unavailable [phone] Reason for Visit * Reason Onset Date Comments Concerns 02/27/2022 Encounter Details Date Type Department Care Team (Late st Contact Info) Description 02/27/2022 Telephone [facility] - Nephrology [address] [facility], [place] [phone] Ellyn Payne RN Concerns Social History Tobacco Use Types [...] Telephone Encounter - Ellyn Payne RN - 02/27/2022 8:50 AM CDT Pt called with concerns regarding changes in diuretic. Adamant about not changing dosing, does not wish to go lower. States, has tired before and began to have swelling in legs. So would like to keepprevious dosing of diuretics. Would like to have nurse informed at facility he's at not to change. Call #[phone], speak with 5 [address]. documented in this encounter Plan of Treatment Upcoming Encounters Date Type Department Care Team (Late st Contact Info) Description 11/29/2024 8:30 AM SOLDERER ELECTRONIC Office Visit [facility] - Orthopedic Surgery [address] [facility] [place] [address] Toño Cabrera MD [address] [facility] [address] [place] [address] 01/08/2025 8:00 AM CDT Appointment [facility] [address] [place] [phone] 01/08/2025 9:00 AM CDT Office Visit [facility] - GI [address] [place] [address], [place] [phone] Amos Pabon MD [address] [place] [address] [place] [address] documented as of this encounter Goals Goal [...] on filedocumented in this encounter Care Teams Railroad Car Cleaning Supervisor Relationship Specialty Start Date End Date Major Kraft MD PCP - General 07/01/21 06/08/22 Eric Oconnell MD Hospitalist 10/10/21 documented as of this encounter
--- OUTSIDE RECORDS SUMMARY | 2024-10-19 20:13 | XMS_ITS | Encounter Summary ---
Author Organization [facility] Address [address] [place] [place] [address] Care Team Providers Care State Patrol Officer Name Role Phone Eric Oconnell MD Unavailable [phone] Gregorio James MD Primary Care Provider [phone] Reason for Visit * Reason Comments Pain Knee Encounter Details Date Type Department Care Team (Latest Contact Info) Description 08/11/2022 9:00 AM CDT Office Visit [facility] [address] [place] [address] Toño Cabrera MD [address] [address] Post-traumatic osteoarthritis of left hip (Primary Dx); Closed fracture of left hip, initial encounter (HCC); Left knee pain, unspecified chronicity; Primary osteoarthritis of left knee Social History Tobacco Use Types Packs/Day Years [...] as of this encounter Progress Notes * Miguel Angel Hickey MD - 08/11/2022 9:39 AM CDT [facility] Orthopedic Adult Reconstruction Surgery Clinic Note Lukas Diaz, 36 year old, male : 1985 CSN: [id number] Primary Care Physician: Gregorio James MD Diagnosis/Procedures 1.) 36 year old male with left knee pain for one year HPI Date of this clinic visit: 08/11/2022 Patient is a 36 year old male who presents for new patient clinic appointment, regarding left knee pain of one year worsened for the past two months. He moves around for far distances with wheelchair. Pain is located on the anterior aspect of left knee without radiation. Sitting with knee bent is better extending knee makes it worse. He feels click with bending and locks and has had experiences of knee giving way. Pain is 5/10 and at worse is 8/10. For pain takes tylenol with no effect. He is doing PT for his LLE. He has never had any injection to his knee. Prior Treatments: History of Steroid use or Steroid Injections to affected joint: No Physical Therapy: yes Medications: tylenol Co-Morbidities: Diabetic: No Smoking history: Yes 3 a day Pertinent Information Occupation: disabled Prior orthopedic injuries/surgeries: No Significant PMH: cirrhosis , Cardiac history: No Current Blood thinners: No Objective There were no vitals taken for this visit. PMHx Past Medical History: Diagnosis Date ??? Anxiety disorder ??? Depression ??? Fracture neck of left femur ??? Hypertension ??? Insomnia PSHx Past Surgical History: Procedure Laterality Date ??? ENDOSCOPY, UPPER N/A 03/05/2022 N/A; EGD ??? ENDOSCOPY, UPPER N/A 06/18/2022 N/A; EGD Social Hx Social History Tobacco Use ??? Smoking status: Current Every Day Smoker Packs/day: 0.25 ??? Smokeless tobacco: Never Used ??? Tobacco comment: 1 cigarettes a day Substance Use Topics ??? Alcohol use: Not Currently Comment: occasional- last drink was Friday 12/15 Family Hx family history is not on file. Allergies Allergies Allergen Reactions ??? Peanut-Derived Anaphylaxis ??? Mushroom Extract Complex Other Chest tightness ??? Shellfish Allergy Other Chest tightness Medications Current Outpatient Medications Medication ??? baclofen (LIORESAL) 10 MG tablet ??? buPROPion SR 12hr (WELLBUTRIN-SR) 100 MG tablet ??? busPIRone (BUSPAR) 5 MG tablet ??? citalopram (CELEXA) 20 MG tablet ??? ferrous sulfate 325 (65 FE) MG tablet ??? folic acid (FOLVITE) 1 MG tablet ??? furosemide (LASIX) 20 MG tablet ??? HM LIDOCAINE PATCH EX ??? lactulose (CHRONULAC) 10 GM/15ML solution ??? Melatonin 3 MG ??? mirtazapine (REMERON) 30 MG tablet ??? ondansetron, disintegrating, (ZOFRAN ODT) 4 MG tablet ??? pantoprazole EC (PROTONIX) 40 MG tablet ??? pregabalin (LYRICA) 75 MG capsule ??? propranolol (INDERAL) 10 MG tablet ??? ramelteon (ROZEREM) 8 MG tablet ??? rifAXIMin (Xifaxan) 550 MG tablet ??? spironolactone (ALDACTONE) 50 MG tablet ??? THIAMINE HCL PO ??? traMADol (ULTRAM) 50 MG tablet ??? traZODone (DESYREL) 50 MG tablet No current facility-administered medications for this visit. Review of Systems 12 point review of systems otherwise negative except as noted in HPI. Physical Exam General: Alert, cooperative, in no acute distress. CV: RRR, distal pulses equal and symmetric Resp: no increased labor of breathing Musculoskeletal: Examination of the left knee reveals no deformity, patient not able to walk due to left hip fracture waiting for dental clearance for hip surgery Skin: intact Warmth: no Erythema: no Effusion: no ROM: 0-135 Laxity: intact Joint line tenderness: no Able to SLR: no due to hip fx Extensor lag: unable to assess Hip: painful IR and ER Peripheral edema: no Circulation: intact Neuro: intact= Imaging - Radiographs reviewed: 4 views of the Left knee which reveal intact joint space with very mild DJD- Please see separate radiographic report for formal read by Radiology Assessment/Plan: 36 year old male with left anterior compartment knee pain secondary to mild Degenerative Joint Disease 1. Patient was counseled to the nature of their diagnosis and demonstrated understanding. Questionssolicited and answered. 2. WBAT LLE 3. Left knee injected in the clinic today 4. Follow up dental clearance for hip surgery 5. Follow up for left knee pain as needed Miguel Angel Hickey MD Orthopaedic Surgery Resident 08/11/22 9:40 AM Patient seen and examined with resident. I confirm history, exam, assessment and plan. In addition I note: Interval history: Briefly, this is a 36 year old male with left knee pain secondary to mild DJD. Exam reveals left knee limitation of and pain with ROM. Motor intact to EHL/FHL/TA/GSC. Sensation intact to light touch to sural, saphenous, superficial peroneal, deep peroneal, and tibial distributions. Palpable dorsalis pedis pulse with foot warm and well perfused. Examination/plan noted above. I personally examined the patient and edited and agree with the above findings in the note. My independent interpretation/assessment of the 4 views of the left knee reveals mild osteoarthritis with some early joint space narrowing and demineralization of the distal femur and proximal tibia Assessment/Plan: Conservative treatment for left knee DJD , PT, NSAIDS, glucosamine/Vit D, ambulatory aids, injections and weight loss. Will discuss operative management in the future if conservativetreatment fails and patient is an appropriate surgical candidate. Please see resident's note for further details. Toño Cabrera MD * Toño Cabrera MD - 08/11/2022 9:00 AM CDT Lukas Diaz is a 36 year old male who had a neglected left femoral neck fracture and was treated with NWB for unknown reasons as he is a poor historian. [facility] neglected femoral neck fracture with some callus formation so no fixation was performed due to his substance abuse and liver cirrhosis. He states he stopped smoking in December when we last saw him. He takes tramadol. Complains of pain in the left hip groin and the letter C sign distribution. He feels like the left leg is actually longer. He is in a wheelchair today but states he does use crutches. He states he can not walk due to the pain. Denies any recent fever or chills, tingling, numbness. He states he stopped smoking in April and his cirrhosis has been improving but he does see hepatology at [facility]. He states he can not do his activities of daily living including walking or standing for any prolonged period of time due to the left hip pain. He isin a retirement at this point. Current Outpatient Medications on File [...] Reported on 06/18/2022) No current facility-administered medications on file prior to visit. Past Medical History: Diagnosis Date ??? Anxiety disorder ??? Depression ??? Fracture neck of left femur ??? Hypertension ??? Insomnia Past Surgical History: Procedure Laterality Date ??? ENDOSCOPY, UPPER N/A 03/05/2022 N/A; EGD ??? ENDOSCOPY, UPPER N/A 06/18/2022 N/A; EGD Social History Occupational History ??? Not on file Tobacco Use ??? Smoking status: Current Every Day Smoker Packs/day: 0.25 ??? Smokeless tobacco: Never Used ??? Tobacco comment: 1 cigarettes a day Vaping Use ??? Vaping Use: Never used Substance and Sexual Activity ??? Alcohol use: Not Currently Comment: occasional- last drink was Friday 12/15 ??? Drug use: Not Currently Types: Marijuana ??? Sexual activity: Not on [...] Cabrera MD ?? documented in this encounter Procedure Notes * Toño Cabrera MD - 08/11/2022 10:08 AM CDTAssociated Order(s): PROC INJECTION JOINT (SMALL/INTERMED/MAJOR) Procedure(s): SD DRAIN/INJECT LARGE JOINT/BURSA Pre-Procedure Diagnose(s): Left knee pain, unspecified chronicity; Primary osteoarthritis of left knee Orthopaedic Surgery Procedure Note Diagnosis: Left knee [...] Loss: Minimal I was present for the lee portions of the procedure. Toño Cabrera MD 08/11/2022 10:08 AM IATRIST documented in this encounter Plan of Treatment Upcoming Encounters Date Type Department Care Team (Late st Contact Info) Description 11/29/2024 8:30 AM PHYSIATRIST Office Visit [facility] - Orthopedic Surgery [address] [place] [address] Toño Cabrera MD [address] [facility] [address] [place] [address] 01/08/2025 8:00 AM CDT Appointment [facility] [address] [place] [phone] 01/08/2025 9:00 AM CDT Office Visit [facility] - GI [address] [facility], [place] [phone] Amos Pabon MD [facility] [place] [address] documented as of this encounter Goals Goal [...] Procedure Name Priority Date/Time Associated Diagnosis Comments SD DRAIN/INJECT LARGE JOINT/BURSA Routine 08/11/2022 10:08 AM CDT Left knee pain, unspecified chronicity Primary osteoarthritis of left knee documented in this encounter Results * SD DRAIN/INJECT LARGE JOINT/BURSA (08/11/2022 10:08 AM CDT) [...] Toño Cabrera MD 08/11/2022 10:08 AM Toño Cbarera MD PROCEDURE/MINOR TRUDI GICAL ORDERABLES documented in this encounter Visit Diagnoses Diagnosis Post-traumatic osteoarthritis of left hip- Primary Secondary localized osteoarthrosis, pelvic region and thigh Closed fracture of left hip, initial encounter ([facility]) Left knee pain, unspecified chronicity Primary osteoarthritis of left knee Primary localized osteoarthrosis, lower leg documented in this encounter Administered Medications Inactive Administered Medications - up to 3 most recent administrations Medication Order MAR Action Action Date Dose Rate Site lidocaine (Xylocaine) 1 % injection 6 mL 6 mL, Infiltration, ONCE, 1 dose, On Wed08/11/22 at 1030 $ Given 08/11/2022 1:26 PM CDT 6 mL Left Knee triamcinolone acetonide (Kenalog-40) injection 80 mg 80 mg, Intra-articular, ONCE, 1 dose, On Wed08/11/22 at 1030, Shake well before using. $ Given 08/11/2022 1:27 PM CDT 80 mg Left Knee documented in this encounter Care Teams State Patrol Officer Relationship Specialty Start Date End Date Gregorio James MD [address] [place] [phone] PCP - General 08/11/22 05/16/24 Eric Oconnell MD Hospitalist 10/10/21 documented as of this encounter
--- OUTSIDE RECORDS SUMMARY | 2024-10-19 20:13 | XMS_ITS | Encounter Summary ---
Author Organization [facility] Health Address [address] [facility] [place] [address] Care Team Providers Care Parts Cataloger Name Role Phone Major Kraft MD Primary Care Provider + [phone] Eric Oconnell MD Unavailable + [phone] Reason for Visit * Reason Onset Date Comments LABS ONLY 01/02/2022 Encounter Details Date Type Department Care Team (Late st Contact Info) Description 01/02/2022 Telephone [facility] - [address] [facility] [place] [phone] Fouzia Payne, RN LABS ONLY Social History Tobacco Use Types Packs/Day Years [...] encounter Miscellaneous Notes * Telephone Encounter - Fouzia Payne RN - 01/02/2022 10:25 AM CST Patient calls needing lab orders sent to [facility] fax number- [phone] Labs ordered and faxed. IFIED RESIDENTIAL MEDICATION AIDE documented in this encounter Plan of Treatment Upcoming Encounters Date Type Department Care Team (Late st Contact Info) Description 11/29/2024 8:30 AM CERTIFIED RESIDENTIAL MEDICATION AIDE Office Visit [facility] - Orthopedic Surgery [address] [place] [address] Toño Cabrera MD [address] [facility] [address] [place] [address] 01/08/2025 8:00 AM CDT Appointment [facility] [address] [place] [phone] 01/08/2025 9:00 AM CDT Office Visit [facility] - GI [address] [facility] [place] [phone] Amos Pabon MD [address] [place] [address] [place] [address] Scheduled Orders Name Type Priority Associated Diagnoses Orde r Schedule HEPATIC FUNCTION PANEL Lab Routine Alcoholic cirrhosis, unspecified whether ascites present (HCC) Ordered: 01/02/2022 CBC WITH DIFFERENTIAL Lab Routine Alcoholic cirrhosis, unspecified whether ascites present (HCC) Ordered: 01/02/2022 BASIC METABOLIC PANEL (CALCIUM TOTAL) Lab Routine Alcoholic cirrhosis, unspecified whether ascites present (HCC) Ordered: 01/02/2022 ALPHA FETOPROTEIN BLOOD TUMOR MARKER Lab Routine Alcoholic cirrhosis, unspecified whether ascites present (HCC) Ordered: 01/02/2022 PT-INR Lab Routine Alcoholic cirrhosis, unspecified whether ascites present (HCC) Ordered: 01/02/2022 AMMONIA Lab Routine Alcoholic cirrhosis, unspecified whether ascites present (HCC) Ordered: 01/02/2022 documented as of this encounter Goals Goal [...] as of this encounter Visit Diagnoses Diagnosis Alcoholic cirrhosis, unspecified whether ascites present (HCC)- Primary documented in this encounter Care Teams Parts Cataloger Relationship Specialty Start Date End Date Major Kraft MD PCP - General 07/01/21 06/08/22 Eric Oconnell MD Hospitalist 10/10/21 documented as of this encounter
--- OUTSIDE RECORDS SUMMARY | 2024-10-19 20:13 | XMS_ITS | Encounter Summary ---
Author Organization [facility] Health Address [address] [place] [address] Care Team Providers Care Produce Wrapper Name Role Phone Major Kraft MD Primary Care Provider + [phone] Eric Oconnell MD Unavailable + [phone] Reason for Visit * Reason Onset Date Comments Pre-op Instructions 02/27/2022 Encounter Details Date Type Department Care Team (Late st Contact Info) Description 02/27/2022 Patient Outreach [facility] ENDOSCOPY [address] [place] [phone] Sheridan Dorman RN Pre-op Instructions Social History [...] Telephone Encounter - Sheridan Dorman RN - 02/27/2022 10:08 AM CDT Pt at [facility] rehab. He confirms his appt. He report he understands instructions and gisell will be his motorcoach driver. Refaxed info Patient: Lukas Diaz 83 ?? Your upper endoscopy is scheduled on 03/05/2022- at 11am. Arrive at 10am ?? -Stop any blood thinners such as Plavix, Clopidogrel, Warfarin, Coumadin, Brilinta or Effient 5 days before your procedure. Stop Eliquis, Xarelto, Cilostazol, Pletal 48 hours prior to your procedure.Stop Pradaxa 3 days before your procedure. (Contact your primary doctor to make sure this is safe for you) ?? -You are not to have anything to [...] your procedure if you are on it. ?? -You MUST have a motorcoach driver to drive you home. (You can NOT take a bus, cab, LYFT or UBER) ?? -You will be at our facility from start to finish (registration, pre op, procedure, recovery) for approximately 4 hours total. ?? -Your procedure will be in our [facility]. The new address will be at [address] [place] [address] to the new parking garage. ?? -Come in on the ORANGE elevators of the parking garage. Endoscopy is on the LEVEL 1 of the hospital. [facility] ?? -Please bring a current list of your medications ?? -Main endoscopy department number is [phone] ?? Prior to arrival, we will need to be aware of any recent COVID exposures or symptoms. Masks are required while in the hospital documented in this encounter Plan of Treatment Upcoming Encounters Date Type Department Care Team (Late st Contact Info) Description 11/29/2024 8:30 AM BUILDING INSPECTOR Office Visit [facility] - Orthopedic Surgery [address] [place] [address] Toño Cabrera MD [address] [facility] [address] [place] [address] 01/08/2025 8:00 AM CDT Appointment [facility] [address] [place] [phone] 01/08/2025 9:00 AM CDT Office Visit [facility] - GI [address] [facility], [place] [phone] Amos Pabon MD [address] [place] [address] [place] [address] documented as of this encounter Goals Goal [...] on filedocumented in this encounter Care Teams Produce Wrapper Relationship Specialty Start Date End Date Major Kraft MD PCP - General 07/01/21 06/08/22 Eric Oconnell MD Hospitalist 10/10/21 documented as of this encounter
--- OUTSIDE RECORDS SUMMARY | 2024-10-19 20:13 | XMS_ITS | Encounter Summary ---
Author Organization [facility] Address [address] [facility] [place] [address] Care Team Providers Care Repairer Handtools Name Role Phone Eric Oconnell MD Unavailable [phone] Raya Carty PA-C Primary Care Provider Reason for Visit * Auth/Cert Specialty Diagnoses / Procedures Referred By Rod t Referred To Contact Diagnoses Chronic gastric ulcer without hemorrhage and without perforation Procedures NC ED EGD FLEX TRANSORAL DX NC EGD FLEX TRANSORAL W BX SNGL OR MULT ESOPHAGOGASTRODUODENOSCOPY (EGD) DIAGNOSTIC Referral ID Status Reason Start Date Expiration Date Visits Re quested Visits Authorized [id number] 1 1 Encounter Details Date Type Department Care Team (Late st Contact Info) Description 06/18/2022 9:00 AM CDT - 06/18/2022 9:30 AM CDT Surgery [facility] ENDOSCOPY [address] [place] [address] Amos Pabon MD [facility] [place] [address] EGD Surgery Details Date/Time Status Location OR Service Patient Class Case Class Case Type Trauma Case? 06/18/2022 9:00 AM Posted [facility] Endoscopy ENDO 4 Gastroenterology Surgery Day Care Panel 1 Procedure LRB Anes Op Region Wound Class Comments EGD N/A MAC Abdomen Clean Barretts esophagus PHG Surgeon Surgeon Role Service Panel Amos Pabon MD Primary Gastroenterology 1 Special Needs Message Received: 3 days ago Amos Pabon MD Johnson, Sarah N. RN Repeat EGD in 3 months documented in this encounter Social History Tobacco [...] Sign Reading Time Taken Comments Blood Pressure 122/86 06/18/2022 8:38 AM CDT Pulse 76 06/18/2022 8:40 AM CDT Temperature 36.7 ??C (98 ??F) 06/18/2022 8:38 AM CDT Respiratory Rate 16 06/18/2022 8:38 AM CDT Oxygen Saturation 95% 06/18/2022 8:38 AM CDT Inhaled Oxygen Concentration - - [...] encounter Discharge Instructions * Discharge Instructions* Regla Garcia RN - 06/18/2022 10:00 AM CDT Images from [...] ask them during your visits. ?? Copyright [employer] 2020 Information is for End User's use only and may not be sold, redistributed or otherwise used for commercial purposes. All illustrations and images included in CareNotes?? are the copyrighted property of [employer]. or [employer] The above information is an educational interpreter only. It is not intended as medical [...] PHYSICAL Today's Date: 06/18/2022 8:58 AM Lukas Diaz 36 year old male Date of [...] is noted. Dictated by Stanley Joyce MD (vice president regulatory). I, Dr. ABDYOSEF HEMPHILL MD, FRCR havepersonally reviewed and interpreted this examination/study. This report was electronically signed by ALO HEMPHILL MD, FRCR on 12/18/2021 10:34 AM . US ABDOMEN LIMITED Result Date: 10/21/2021 IMPRESSION: 1.Hepatic cirrhosis with sequela of portal hypertension (recanalization of the umbilical vein) without discrete hepatic lesion. 2.Splenomegaly. 3.No evidence of cholelithiasis or acute cholecystitis. Dictated by Lawrence Meyers D.O. (Photograph Developer) Dr. CLIFFORD Anton M.D. have pers onally [...] neck. Report dictated by Shama Landry M.D. (vice president regulatory). Dr. ALO Anton MD, FRCR have personally reviewed and interpreted this examination/study. This report was electronically signed by ALO HEMPHILL MD, FRCR on 12/18/2021 10:05 AM . Physicial Exam: [...] Hepatology Fellow Division of Gastroenterology and Hepatology [facility] of [facility] documented in this encounter Plan of Treatment Upcoming Encounters Date Type Department Care Team (Late st Contact Info) Description 11/29/2024 8:30 AM IPHONE DEVELOPER Office Visit [facility] - Orthopedic Surgery [address] [place] [phone] Toño Cabrera MD 10[address] [facility] [address] [place] [address] 01/08/2025 8:00 AM CDT Appointment [address] [phone] 01/08/2025 9:00 AM CDT Office Visit [facility] - GI [address] [facility] [place] [phone] Amos Pabon MD [address] [place] [address] [place] [address] documented as of this encounter Goals Goal [...] Procedure Name Priority Date/Time Associated Diagnosis Comments NC ED EGD FLEX TRANSORAL DX 06/18/2022 9:18 AM CDT Chronic gastric ulcer without hemorrhage and without perforation Special Needs Message Received: 3 days ago Amos Pabon MD Johnson, Sarah N., RN Repeat EGD in 3 months EGD [...] Procedure Code(s): ? --- Professional --- ? 32044, Esophagogastroduode noscopy, flexible, transoral; diagnostic, ? including collection of specimen(s) by brushing or washing, when ? performed (separate procedure) Diagnosis Code(s): ?--- Professional --- ?K76.6, Portal hypertension ?K22.70, Holt's esophagus without dysplasia CPT copyright 2019 [employer]. All rights reserved. The codes documented in this report are preliminary and upon electronic equipment installer review may be revised to meet current compliance requirements. Amos Pabon, 06/18/2022 9:47:50 AM Note Initiated On: 06/18/2022 9:04 AM Number of Addenda: 0 ? [facility] ? [address] [place], [place] [phone] [place] [address] PROVATION 06/18/2022 9:04 AM CDT Amos Pabon MD GI PROCEDURE ORDERAB LES [facility] PROVJESUS documented in this encounter Visit Diagnoses Diagnosis Holt's esophagus without dysplasia Holt's esophagus Acute gastric ulcer without hemorrhage or perforation Acute gastric ulcer without mention of hemorrhage, perforation, or obstruction Portal hypertension (HCC) Portal hypertension Other diseases of stomach and duodenum Chronic gastric ulcer without hemorrhage and without perforation documented in this encounter Administered Medications Inactive [...] (GI) documented in this encounter Care Teams Repairer Handtools Relationship Specialty Start Date End Date Raya Carty PA-C [address] [place] [phone] PCP - General 06/09/22 07/05/22 Eric Oconnell MD Hospitalist 10/10/21 documented as of this encounter
--- OUTSIDE RECORDS SUMMARY | 2024-10-19 20:13 | XMS_ITS | Encounter Summary ---
Author Organization [facility] Address [address] [place] [address] Care Team Providers Care Paperback Machine Operator Name Role Phone Major Kraft MD Primary Care Provider + [phone] Eric Oconnell MD Unavailable + [phone] Reason for Visit * Auth/Cert Specialty Diagnoses / Procedures Referred By Rod t Referred To Contact Diagnoses Other cirrhosis of liver (HCC) Other cirrhosis of liver [K74.69] Procedures [place] FLEX [place] FLEX TRANSORAL W BX SNGL OR MULT ESOPHAGOGASTRODUODENOSCOPY (EGD) DIAGNOSTIC Referral ID Status Reason Start Date Expiration Date Visits Re quested Visits Authorized [id number] 1 1 Encounter Details Date Type Department Care Team (Latest Contact Info) Description 03/05/2022 8:57 AM CDT - 03/05/2022 10:46 AM CDT Hospital Encounter [facility] [address] [place] [phone] Amos Pabon MD [address] [facility] 2L [facility] [place] [address] Surgery General Discharge Disposition: Senior Care Facility Social History Tobacco Use Types Packs/Day [...] Sign Reading Time Taken Comments Blood Pressure 125/86 03/05/2022 10:15 AM CDT Pulse 81 03/05/2022 10:15 AM CDT Temperature 36.7 ??C (98 ??F) 03/05/2022 10:00 AM CDT Respiratory Rate 17 03/05/2022 10:15 AM CDT Oxygen Saturation 96% 03/05/2022 10:15 AM CDT Inhaled Oxygen Concentration - [...] ask them during your visits. ?? Copyright [employer] 2020 Information is for End User's use only and may not be sold, redistributed or otherwise used for commercial purposes. All illustrations and images included in CareNotes?? are the copyrighted property of [employer], [employer]. or [employer] The above information is an fish and wildlife scientific aid only. It is not intended as medical [...] 02/19/2023 vitamin D, ergocalciferol, (DRISDOL) 1.25 MG (99399 UT) capsule Take 1 (one) capsule by mouth every 7 days for 90 days 4 capsule 2 12/26/2021 03/26/2022 documented as of this encounter H&P Notes * Amos Pabon MD - 03/05/2022 9:24 AM CDT ENDOSCOPY PRE-PROCEDURE MEDICAL HISTORY & PHYSICAL Today's Date: 03/05/2022 9:24 AM Lukas Diaz 36 year old male [...] ??? vitamin D, ergocalciferol, (DRISDOL) 1.25 MG (44216 UT) capsule Take 1 (one) capsule by [...] acute cholecystitis. Dictated by Lawrence Meyers D.O. (Cat Tender) I, Dr. CLIFFORD COTA M.D. have pers [...] post EVL surveillance Procedure Planned: EGD Amos Pabon, MD documented in this encounter Plan of Treatment Upcoming Encounters Date Type Department Care Team (Late st Contact Info) Description 11/29/2024 8:30 AM JUNIOR MECHANICAL ENGINEER Office Visit [facility] - Orthopedic Surgery [address] [facility] [place] [address] Toño Cabrera MD [address] [facility] [address] [place] [address] 01/08/2025 8:00 AM CDT Appointment [facility] [address] [place] [phone] 01/08/2025 9:00 AM CDT Office Visit [facility] - GI [address] [facility], [place] [phone] Amos Pabon MD [address] [place] [address] [address]L [facility] [place] [address] documented as of this encounter Goals Goal [...] AM CDT Other cirrhosis of liver (HCC) [place] FLEX TRANSORAL DX 03/05/2022 9:43 AM CDT Other cirrhosis of liver (HCC) [facility] Routine 03/05/2022 9:23 AM CDT documented in this encounter Results * PATHOLOGY TISSUE (03/05/2022 9:47 AM CDT) Case Report Surgical Pathology Report ? Case: [id number] ? Authorizing Provider: ??Amos Pabon MD ?Collected: ? 03/05/2022 09:47 AM ? Ordering Location: ? [facility] ?Received: ?03/05/2022 11:35 AM ? Pathologist: ? Елена Stubbs MD ? Specimen: ?Gastric, . ??gastric bx R/O H pylori ? 03/06/2022 12:19 PM CDT [facility] Final Diagnosis Stomach, biopsy (A): - Mild reactive changes and proton pump inhibitor effect - No active inflammation or H. pylori organisms (H&E examination) 03/06/2022 12:[address] [facility] Microscopic Description and Comment Microscopic examination substantiates the final diagnosis. 03/06/2022 12:[address] [facility] Clinical History The patient is a 36-year-old man here for 2nd degree variceal eradication. Operative procedure/findings: EGD - few non-bleeding superficial gastric ulcers in antrum, biopsied. 03/06/2022 12:19 PM T [facility] Gross Description The requisition and specimen(s) are identified with the patient's name Lukas Diaz. Received in formalin, specimen A , are 4 pink-briscoe tissues, 0.1-0.7 cm in greatest dimension and 1.3 x 0.2 x 0.2 cm in aggregate, submitted in toto in cassette A1. DF 03/06/2022 12:19 PM T [facility] Disclaimer The performance characteristics of all immunohistochemical and indirect immunofluorescence stains (if any) cited in this report were determined by the Histopathology Laboratory of [facility]. Some of these tests were developed by [...] attending (teaching) pathologist. 03/06/2022 12:19 PM T [facility] Embedded Images 03/06/2022 12:19 PM T [facility] Biopsy, NOS GASTRIC CONTENTS SPECIMEN / Unknown 03/05/2022 9:47 AM CDT 03/05/2022 11:35 AM CDT Comment:Pre-op diagnosis: Other cirrhosis of liver [K74.69] Amos Pabon MD LAB - PATHOLOGY/CYTO LOGY ORDERABLES Performing Organization Address [facility]/State/[facility] Co de Phone Number [facility] [address] [place], [place] [id number] [place] [address] * EGD (03/05/2022 9:23 AM CDT) Report Endoscopy POC Endoscopy Department Report __ _ Patient Name: Lukas Diaz ? Procedure Date: 03/05/2022 9:23 AM ?Date of : 1985 Classification: Outpatient ?Gender: Male Ethnicity: Not or ? Race: White __ _ Providers: ?Amos Pabon Referring MD: ? Major Kraft (Referring MD) Procedure: ?Upper GI endoscopy [...] Procedure Code(s): ? --- Professional --- ? 94228, Esophagogastroduode noscopy, flexible, transoral; with biopsy, ? single or multiple Diagnosis Code(s): ?--- Professional --- ?K21.0, Gastro-esophageal reflux disease with ?esophagitis ?K22.8, Other specified diseases of esophagus ?K25.9, Gastric ulcer, unspecified as acute or ?chronic, without hemorrhage or perforation ?I85.00, Esophageal varices without bleeding CPT copyright 2019 [employer]. All rights reserved. The codes documented in this report are preliminary and upon death surveys coder review may be revised to meet current compliance requirements. Amos Pabon, 03/05/2022 9:59:19 AM Note Initiated On: 03/05/2022 9:23 AM Number of Addenda: 0 ? [facility] ? [address] [place], [place] [id number] [place] [address] PROVATION 03/05/2022 9:23 AM CDT Amos Pabon MD GI PROCEDURE ORDERAB LES [facility] PROVATION documented in this encounter Visit Diagnoses Diagnosis Other cirrhosis of liver (HCC) Esophageal varices without bleeding, unspecified esophageal varices type (HCC) Gastro-esophageal reflux disease with esophagitis, without bleeding Other specified disease of esophagus Gastric ulcer without hemorrhage or perforation, unspecified chronicity documented in this encounter Administered Medications Inactive [...] (GI) documented in this encounter Care Teams Paperback Machine Operator Relationship Specialty Start Date End Date Major Kraft MD PCP - General 07/01/21 06/08/22 Eric Oconnell MD Hospitalist 10/10/21 documented as of this encounter
--- OUTSIDE RECORDS SUMMARY | 2024-10-19 20:13 | XMS_ITS | Encounter Summary ---
Author Organization [facility] Address [address] [place] [address] Care Team Providers Care Production Pattern Maker Name Role Phone Major Kraft MD Primary Care Provider [phone] Eric Oconnell MD Unavailable + [phone] Raya Carty PA-C Primary Care Provider Mjaor Kraft MD Primary Care Provider + [phone] Gregorio James MD Primary Care Provider [phone] Reason for Visit * Reason Onset Date Comments Physical Therapy 01/29/2022 Encounter Details Date Type Department Care Team (Late st Contact Info) Description 01/29/2022 Telephone [facility] [address] [place], [place] [phone] Toño Cabrera MD [address] [phone] Physical Therapy Social History Tobacco Use Types Packs/Day Years [...] encounter Miscellaneous Notes * Telephone Encounter - Nadine Bennett MA - 01/29/2022 3:29 PM CDT Patient requesting a call back from Dr. Cabrera's staff. Patient stated that he left a message on nurse Joel's phone, I informed him that she was out of the office week. Patient also gave another call back number [phone] [facility] nurse. He stated that it had something to do with physical therapy and insurance. Please advise. documented in this encounter Plan of Treatment Upcoming Encounters Date Type Department Care Team (Late st Contact Info) Description 11/29/2024 8:30 AM COOPERATIVE MANAGER Office Visit [facility] - Orthopedic Surgery [address] [place] [address] Toño Cabrera MD 10[address] [facility] [address] [place] [address] 01/08/2025 8:00 AM CDT Appointment [place] [phone] 01/08/2025 9:00 AM CDT Office Visit [facility] - GI [address] [facility], [place] [address] Amos Pabon MD [address] [facility] 2L DIV [place] [address] documented as of this encounter Goals Goal [...] on filedocumented in this encounter Care Teams Production Pattern Maker Relationship Specialty Start Date End Date Major Kraft MD PCP - General 07/01/21 06/08/22 Raya Carty PA-C [address] [place] [phone] PCP - General 06/09/22 07/05/22 Major Kraft MD PCP - General 07/06/22 08/10/22 Gregorio James MD [address] [place] [phone] PCP - General 08/11/22 05/16/24 Eric Oconnell MD Hospitalist 10/10/21 documented as of this encounter
--- OUTSIDE RECORDS SUMMARY | 2024-10-19 20:13 | XMS_ITS | Encounter Summary ---
Author Organization [facility] Address [address] [place] [address] Care Team Providers Care Clearing Tub Worker Name Role Phone Eric Oconnell MD Unavailable [phone] Raya Carty PA-C Primary Care Provider Reason for Visit * Reason Comments Medication Problem Refill Request Encounter Details Date Type Department Care Team (Late st Contact Info) Description 06/11/2022 Refill [facility] - [address] [place] [phone] Nahed Quinonez RN Medication Problem; Refill Request Social History Tobacco Use Types [...] No 03/05/2022 documented as of this encounter Plan of Treatment Upcoming Encounters Date Type Department Care Team (Late st Contact Info) Description 11/29/2024 8:30 AM DAYCARE MANAGER Office Visit [facility] - Orthopedic Surgery [address] [place] [address] Toño Cabrera MD 10[address] [facility] 280 [place] [address] 01/08/2025 8:[address] [facility] [address] [place] [address] 01/08/2025 9:00 AM CDT Office Visit [facility] - GI [address] [facility], [place] [phone] Amos Pabon MD [address] [place] [address] [place] [address] documented as of this encounter Goals Goal [...] on filedocumented in this encounter Care Teams Clearing Tub Worker Relationship Specialty Start Date End Date Raya Carty PA-C [address] [place] [address] PCP - General 06/09/22 07/05/22 Eric Oconnell MD Hospitalist 10/10/21 documented as of this encounter
--- OUTSIDE RECORDS SUMMARY | 2024-10-19 20:13 | XMS_ITS | Encounter Summary ---
Author Organization [facility] Address [address] [facility] [place] [address] Care Team Providers Care Development Technologist Name Role Phone Major Kraft MD Primary Care Provider + [phone] Eric Oconnell MD Unavailable + [phone] Encounter Details Date Type Department Care Team (Latest Contact Info) Description 02/16/2022 Travel Social History Tobacco Use Types Packs/Day [...] st Contact Info) Description 11/29/2024 8:30 AM HR SHARED SERVICES CONSULTANT Office Visit [facility] - Orthopedic Surgery [address] [facility] [place] [address] Toño Cabrera MD 10[address] [facility] [address] [place] [address] 01/08/2025 8:00 AM CDT Appointment [facility] [address] [place] [address] 01/08/2025 9:00 AM CDT Office Visit [facility] - GI [address] [facility], [place] [phone] Amos Pabon MD [facility] [facility] 2L [place] [address] documented as of this encounter Goals Goal [...] on filedocumented in this encounter Care Teams Development Technologist Relationship Specialty Start Date End Date Major Kraft MD PCP - General 07/01/21 06/08/22 Eric Oconnell MD Hospitalist 10/10/21 documented as of this encounter
--- OUTSIDE RECORDS SUMMARY | 2024-10-19 20:13 | XMS_ITS | Encounter Summary ---
Author Organization [facility] Address [address] [facility] [place] [address] Care Team Providers Care Payroll Benefits Administrator Name Role Phone Eric Oconnell MD Unavailable [phone] Raya Carty PA-C Primary Care Provider Reason for Visit * Auth/Cert Specialty Diagnoses / Procedures Referred By Rod young Referred To Contact Diagnoses Chronic gastric ulcer without hemorrhage and without perforation Procedures MT ED EGD FLEX TRANSORAL DX MT EGD FLEX TRANSORAL W BX SNGL OR MULT ESOPHAGOGASTRODUODENOSCOPY (EGD) DIAGNOSTIC Referral ID Status Reason Start Date Expiration Date Visits Re quested Visits Authorized [id number] 1 1 Encounter Details Date Type Department Care Team (Late st Contact Info) Description 06/18/2022 9:13 AM CDT Anesthesia Event [facility] ENDOSCOPY [address] [place] [phone] Madalyn Luna MD [address] [place] [address] [place] [phone] Alicia Garcia, UNDERWRITING SERVICE REPRESENTATIVE-COMMERCIAL LENDER [address] [place] [address] Anesthesia Record Procedure Summary Procedure Name Responsible Anesthesiologist Anesthesia Start Time Anesthesia Stop Time EGD (Abdomen) Madalyn Luna MD 06/18/22 0913 06/18/22 0942 Events Date Time Event Comment 06/18/2022 0856 0913 An Start 0913 Pt In Room 0913 An Start Data 0915 PT Reassessment 0915 Timeout Anesthesia part icipated in timeout at the time documented in the record by nursing. 0916 Induction 0916 Anes Ready 0917 Proc Start 0930 Proc Stop 0930 An Emergence 0938 an stop data 0938 Pt out of Room 0942 An Stop Meds Name Total lidocaine PF 2% 50 mg propofol 200mg/20mL injection 150 mg propofol 500 mg/50 mL injection 162.16 m g midazolam 2 mg/2mL injection 2 mg NS (0.9% NaCl) 200 mL * Agents Name Insp. N2O Exp. N2O O2 * Blood No blood administrations on file. Lines, Drains, and Airways Type Details Placement Removal Peripheral IV Date: 06/18/22; Time : 837; Orientation: Right; Placed By: izabel jasso rn; Tolerance: Well 06/18/22 0838 by Regla Garcia RN 06/18/22 1030 by Opal Morelos RN documented in this encounter Social History Tobacco [...] as of this encounter Progress Notes * Madalyn Luna MD - 06/18/2022 10:34 AM CDT ANESTHESIA POSTOP EVALUATION NOTE Procedure: EGD (N/A Abdomen) Lukas Diaz is a 36 year old male Patient Vitals for the past 6 hrs: BP Temp Pulse Resp SpO2 Pain Rating Score #1 Pain Scale/Observation Pulse - (SPO2/Cuff) 06/18/22 0838 122/86 98 ??F (36.7 ??C) 77 16 95 % 0 N -- 06/18/22 0840 -- -- 76 -- -- -- -- -- 06/18/22 0940 109/75 97.3 ??F (36.3 ??C) 96 15 97 % 0 B -- 06/18/22 0945 106/70 -- 81 14 98 % -- -- 83 bpm 06/18/22 1015 109/78 -- 81 16 97 % -- -- 71 bpm 06/18/22 1026 -- -- -- -- -- 0 N -- Anesthesia Type: general Pre-op Diagnosis Codes: * Chronic gastric ulcer without hemorrhage and without perforation [K25.7] Mental Status: awake, alert, neurologic status has returned to preoperative level and sufficiently recovered from acute administration of anesthesia to participate in the evaluation Respiratory Function: natural Cardiac Function: stable Postop Pain: acceptable to the patient Postop Hydration: adequate Postop Nausea: none Assessment: no apparent anesthetic complications, patient tolerated procedure well and no evidence of recall Patient Disposition: Release from Anesthesia Care COMPLICATIONS: No complications documented. * Madalyn Luna MD - 06/18/2022 8:23 AM CDT ANESTHESIA PREOPERATIVE EVALUATION NOTE Procedure: EGD (N/A Abdomen) NPO status: Since Midnight (06/18/2022 8:21 AM) Vitals: No data found. LMP: No LMP for male patient. OB Status: unknown ANESTHESIA PRE-EVALUATION NOTE History of Present Illness: 36 yo with h/o alcoholic cirrhosis, anxiety,depression,HTN, The patient is a current smoker (H/O MARIJUANA use gummies ). Physical Exam: Orientation X3 Airway/Mallampati Score: II Mouth Opening Distance: 2.5 fingerwidths Neck ROM: full TM Distance: > 3 FB Teeth: poor dentition, chipped and Other - comments (bad carries ,broken ,missing few) Heart: normal - S1 S2 Lungs: clear to ausculation bilaterally Abdomen Exam: ascites and distended (paracentesis last year) Review of Systems: History of anesthetic complications: No Sleep Apnea Risk: No GERD: No Poor Exercise Tolerance: Yes (broken hip, non union fx left hip) Recent Chest Pain: No Shortness of Breath: No AICD/Pacemaker: No Renal Disease: No Diagnostic Tests: Lab(s) reviewed: Yes. ANESTHESIA PLAN ASA Score: 2 NPO Status: No liquids within 2 hours and Patient instructed to be NPO after midnight Anesthesia Plan: MAC, TIVA and general (back up ga with ett) Planned Induction: intravenous Planned Postop Destination: endo Anesthetic plan was discussed with: patient Anesthetic Plan discussion was: Consented The patient's procedural Anesthetic Plan was discussed with the COMMERCIAL LENDER and nurse assistant. BMI, Height, Weight Tobacco History Estimated body mass index is 27.31 kg/m?? as calculated from the following: Height as of this encounter: 1.702 m (5' 7 ). Weight as of this encounter: 79.1 kg (174 lb 6.4 oz). Social History Tobacco Use Smoking Status Current Every Day Smoker ??? Packs/day: 0.25 Smokeless Tobacco Never Used Tobacco Comment 1 cigarettes a day Alcohol History Drug History Social History Substance and Sexual Activity Alcohol Use Not Currently Comment: occasional- last drink was Friday 12/15 Social History Substance and Sexual Activity Drug Use Not Currently ??? Types: Marijuana Outpatient Medications: Inpatient Medications: No outpatient medications have been marked as taking for the 06/18/22 encounter (Hospital Encounter). No current facility-administered medications for this encounter. Allergies: Allergies Allergen Reactions ??? Peanut-Derived Anaphylaxis ??? Mushroom Extract Complex Other Chest tightness ??? Shellfish Allergy Other Chest tightness Relevant Problems No relevant active problems Problem [...] of left femur ??? Hypertension ??? Insomnia Surgical History: Past Surgical History: Procedure Laterality Date ??? ENDOSCOPY, UPPER N/A 03/05/2022 N/A; EGD FACILITY SERVICE MANAGER Status: No LMP for male patient. unknown OB History No obstetric history on file. Covid Vaccine: Lab Results: No results found for requested labs within last 120 days. No results found for requested labs within last 120 days. documented in this encounter Miscellaneous Notes * Anesthesia Transfer of Care - Jose Alicia N, UNDERWRITING SERVICE REPRESENTATIVE-COMMERCIAL LENDER - 06/18/2022 9:42 AM CDT ANESTHESIA TRANSFER OF CARE NOTE Today's Date: 06/18/2022 Date of : 1985 Patient: Lukas Diaz Procedure(s) with comments: EGD - Barretts esophagus PHG Surgeon(s): Primary: Amos Pabon MD Preop Diagnosis: Pre-op Diagnois: * Chronic gastric ulcer without hemorrhage and without perforation [K25.7] Pre-op Meds (From admission, onward) Start Stop Status Route Frequency Ordered 06/18/22 0913 0.9% NaCl infusion -- Sent IV CONTINUOUS PRN 06/18/22 0917 06/18/22 0909 0.9% NaCl injection 3 mL -- Dispensed IK PRE-PROCEDURE MULTIPLE 06/18/22 0909 06/18/22 0916 lidocaine HCl (PF) (Xylocaine MPF) 2 % injection -- Sent IV PRN 06/18/22 0917 08/25/22 0915 midazolam (Versed) injection -- Sent IV PRN 06/18/2217 06/18/22916 propofol (Diprivan) infusion -- Sent IV CONTINUOUS PRN 06/18/2291606/18/22916 propofol (Diprivan) injection -- Sent IV PRN 06/18/22916 Post-op Diagnosis: * Chronic gastric ulcer without hemorrhage and without perforation [K25.7] . Allergies Allergen Reactions ??? Peanut-Derived Anaphylaxis ??? Mushroom Extract Complex Other Chest tightness ??? Shellfish Allergy Other Chest tightness Vitals: Patient Vitals for the past 3 hrs: BP Temp Pulse Resp SpO2 Pain Rating Score #1 06/18/22 0840 -- -- 76 -- -- -- 06/18/22837 122/86 98 ??F (36.7 ??C) 77 16 95 % 0 Lines, Drains, and Airways Type Details Placement Removal Peripheral IV Date: 06/18/22; Time: 837; Orientation: Right; Location: Hand; Placed By: izabel jasso rn; Gauge: 20 Gauge; Locals: None; Tolerance: Well 06/18/22837 by Regla Garcia RN Intraprocedure I/O Totals Intake NS (0.9% NaCl) 200.00 mL Total Intake 200 mL Patient Transfer Location: Endo Recovery Transport Airway: spontaneous respirations Transport Monitoring: continuous pulse oximetry Complications: None Handoff Given? Yes Checklist or Protocol - The lee handoff elements that must be included in the transfer of care checklist include: 1. Identification of patient. 2. Identification of responsible practitioner (PACU nurse or advanced practitioner). 3. Discussion of pertinent medical history. 4. Discussion of the surgical/procedure course (procedure, reason for surgery, procedure performed). 5. Intraoperative anesthetic management and issue/concerns. 6. Expectations/Plans for the early post-procedure period. 7. Opportunity for questions and acknowledgement of understanding of report from the receiving PACUteam. Alicia Garcia APRN-COMMERCIAL LENDER documented in this encounter Plan of Treatment Upcoming Encounters Date Type Department Care Team (Late st Contact Info) Description 11/29/2024 8:30 AM MORTGAGE PROTECTION SPECIALIST Office Visit [facility] - Orthopedic Surgery [address] [facility] [place] [phone] Toño Cabrera MD [address] [facility] [address] [place] [address] 01/08/2025 8:00 AM CDT Appointment [facility] [address] [place] [phone] 01/08/2025 9:00 AM CDT Office Visit [facility] - GI [address] [facility], [place] [phone] Amos Pabon MD [facility] [place] [address] documented as of this encounter Goals Goal [...] Diagnoses Not on filedocumented in this encounter Administered Medications Inactive Administered Medications - up to 3 most recent administrations Medication Order MAR Action Action Date Dose Rate Site 0.9% NaCl infusion Intravenous, CONTINUOUS PRN, Starting on Oly 06/18/22 at 0913, Until Oly 06/18/22 at 0942, Anesthesia Intra-op $ New Bag/Syringe 06/18/2022 9:13 AM CDT lidocaine HCl (PF) (Xylocaine MPF) 2 % injection Intravenous, PRN, Starting on Oly 06/18/22 at 0916, Until Oly 06/18/22 at 0942, Anesthesia Intra-op $ Given 06/18/2022 9:16 AM CDT 50 mg midazolam (Versed) injection Intravenous, PRN, Starting on Oly 06/18/22 at 0915, Until Oly 06/18/22 at 0942, Anesthesia Intra-op $ Given 06/18/2022 9:15 AM CDT 2 mg propofol (Diprivan) infusion Intravenous, CONTINUOUS PRN, Starting on Oly 06/18/22 at 0917, Until Oly 06/18/22 at 0942, Anesthesia Intra-op Rate Change 06/18/2022 9:19 AM CDT 175 mcg/kg/min 83.055 mL/hr $ New Bag/Syringe 06/18/2022 9:17 AM CDT 150 mcg/kg/min 71 .19 mL/hr propofol (Diprivan) injection Intravenous, PRN, Starting on Oly 06/18/22 at 0917, Until Loy 06/18/22 at 0942, Anesthesia Intra-op $ Given 06/18/2022 9:19 AM CDT 50 mg $ Given 06/18/2022 9:17 AM CDT 100 mg documented in this encounter Care Teams Payroll Benefits Administrator Relationship Specialty Start Date End Date Raya Carty PA-C [address] [place] [phone] PCP - General 06/09/22 07/05/22 Eric Oconnell MD Hospitalist 10/10/21 documented as of this encounter
--- OUTSIDE RECORDS SUMMARY | 2024-10-19 20:13 | XMS_ITS | Encounter Summary ---
Author Organization [facility] Address [address] [place] [address] Care Team Providers Care Table Games Shift Manager Name Role Phone Major Kraft MD Primary Care Provider [phone] Eric Oconnell MD Unavailable + [phone] Encounter Details Date Type Department Care Team (Late st Contact Info) Description 01/05/2022 Orders Only [facility] - Orthopedics [address] [facility], [place] [address] David Burns MD [address] [place] [address] Orthopedic aftercare Social History Tobacco Use Types Packs/Day Years [...] st Contact Info) Description 11/29/2024 8:30 AM HAT AND CAP OPENER Office Visit [facility] - Orthopedic Surgery [address] [place] [address] Toño Cabrera MD [address] [facility] [address] [place] [address] 01/08/2025 8:[address] [facility] [address] [place] [phone] 01/08/2025 9:00 AM CDT Office Visit [facility] - GI [address] [facility], [place] [address] Amos Pabon MD [address] [place] [address] [place] [address] documented as of this encounter Goals Goal [...] documented as of this encounter Results * XR FEMUR LEFT [...] in this encounter Visit Diagnoses Diagnosis Orthopedic aftercare- Primary Unspecified orthopedic aftercare Orthopedic aftercare Unspecified orthopedic aftercare documented in this encounter Care Teams Table Games Shift Manager Relationship Specialty Start Date End Date Major Kraft MD PCP - General 07/01/21 06/08/22 Eric Oconnell MD Hospitalist 10/10/21 documented as of this encounter
--- OUTSIDE RECORDS SUMMARY | 2024-10-19 20:13 | XMS_ITS | Encounter Summary ---
Author Organization [facility] Address [address] [facility] [place] [address] Care Team Providers Care Bank Vault Clerk Name Role Phone Major Kraft MD Primary Care Provider [phone] Eric Oconnell MD Unavailable + [phone] Reason for Visit * Reason Comments Follow-up Encounter Details Date Type Department Care Team (Late st Contact Info) Description 02/24/2022 Telephone [facility] - Nephrology [address] [place] [address], [place] [address] Amos Pabon MD [address] [place] [address] OF GASTROENTEROLOGY [place], [place] [phone] Follow-up Social History Tobacco Use Types Packs/Day [...] as of this encounter Progress Notes * Shannon Cheung RN - 02/24/2022 3:11 PM CDT Patient calls in has concerns with lowering his diuretics, is concerned about edema returning. Would like to have RN call his facility he is at and speak with nurse there regarding these changes and concerns. Message Routed to Sheridan FUENTES / documented in this encounter Miscellaneous Notes * Telephone Encounter - Sheridan Ng RN - 02/25/2022 8:08 AM CDT Previously called and spoke with RN at [facility] as per previous note. Also faxed recommendations to the facility. Patient can call if any issues/swelling arise. documented in this encounter Plan of Treatment Upcoming Encounters Date Type Department Care Team (Late st Contact Info) Description 11/29/2024 8:30 AM POWER PLANT SUPERVISOR Office Visit [facility] - Orthopedic Surgery [address] [place] [address] Toño Cabrera MD [address] [facility] [address] [place] [address] 01/08/2025 8:00 AM CDT Appointment [facility] [address] [place] [address] 01/08/2025 9:00 AM CDT Office Visit [facility] - GI [address] [facility], [place] [address] Amos Pabon MD [address] [facility] 2L [place] [address] documented as of this encounter Goals Goal [...] on filedocumented in this encounter Care Teams Bank Vault Clerk Relationship Specialty Start Date End Date Major Kraft MD PCP - General 07/01/21 06/08/22 Eric Oconnell MD Hospitalist 10/10/21 documented as of this encounter
--- OUTSIDE RECORDS SUMMARY | 2024-10-19 20:13 | XMS_ITS | Encounter Summary ---
Author Organization [facility] Address [address] [facility] [place] [address] Care Team Providers Care Remedial Teacher Name Role Phone Major Kraft MD Primary Care Provider [phone] Eric Oconnell MD Unavailable + [phone] Encounter Details Date Type Department Care Team (Late st Contact Info) Description 03/06/2022 Orders Only [facility] - GI [address] [place] [address], [place] [phone] Amos Pabon MD [address] [place] [address] OF GASTROENTEROLOGY [place], [place] [phone] Chronic gastric ulcer without hemorrhage and without perforation Social History Tobacco Use Types Packs/Day Years [...] st Contact Info) Description 11/29/2024 8:30 AM HOUSEHOLD APPLIANCE 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, [place] [address] Amos Pabon MD [address] [place] [address] [place] [address] documented as of this encounter Goals Goal [...] as of this encounter Visit Diagnoses Diagnosis Chronic gastric ulcer without hemorrhage and without perforation- Primary documented in this encounter Care Teams Remedial Teacher Relationship Specialty Start Date End Date Major Kraft MD PCP - General 07/01/21 06/08/22 Eric Oconnell MD Hospitalist 10/10/21 documented as of this encounter
--- OUTSIDE RECORDS SUMMARY | 2024-10-19 20:13 | XMS_ITS | Encounter Summary ---
Author Organization [facility] Address [address] [facility] [place] [address] Care Team Providers Care Auto Body Repairer Fiberglass Name Role Phone Eric Oconnell MD Unavailable [phone] Gregorio James MD Primary Care Provider Reason for Visit * Reason Comments Pain Knee Encounter Details Date Type Department Care Team (Latest Contact Info) Description 02/16/2023 11:45 AM CDT Office Visit [facility] Orthopedic Surgery [address] [place] [address] Toño Cabrera MD [address] [address] Primary osteoarthritis of left knee (Primary Dx); Post-traumatic osteoarthritis of left hip [...] Progress Notes * Toño Cabrera MD - 02/16/2023 11:45 AM CDT Patient returns for repeat left [...] Procedure Notes * Toño Cabrera MD - 02/16/2023 12:00 PM CDTAssociated Order(s): PROC INJECTION JOINT (SMALL/INTERMED/MAJOR) Procedure(s): IN DRAIN/INJECT LARGE JOINT/BURSA Pre-Procedure Diagnose(s): Primary osteoarthritis of left knee Orthopaedic Surgery Procedure Note Lukas Diaz [id number] Diagnosis: Left knee pain Procedure: Injection of [...] procedure Toño Cabrera MD 02/16/2023 12:00 PM documented in this encounter Plan of Treatment Upcoming Encounters Date Type Department Care Team (Late st Contact Info) Description 11/29/2024 8:30 AM GM VIDEO Office Visit [facility] - Orthopedic Surgery [address] [place] [address] Toño Cabrera MD 10[address] [facility] 280 [place] [address] 01/08/2025 8:00 AM CDT Appointment [facility] [address] [place] [address] 01/08/2025 9:00 AM CDT Office Visit [facility] - GI [address] [facility], [place] [phone] Amos Pabon MD [address] [place] [address] [place] [address] documented as of this encounter Goals Goal [...] Procedure Name Priority Date/Time Associated Diagnosis Comments IN DRAIN/INJECT LARGE JOINT/BURSA Routine 02/16/2023 12:00 PM CDT Primary osteoarthritis of left knee documented in this encounter Results * IN DRAIN/INJECT LARGE JOINT/BURSA (02/16/2023 12:00 PM CDT) Narrative Toño Cabrera MD - 02/16/2023 12:00 PM CDT Toño Cabrera MD ? 02/18/2023 ??3:47 PM Orthopaedic Surgery Procedure Note Lukas Diaz [id number] Diagnosis: Left knee pain Procedure: Injection of [...] knee- Primary Primary localized osteoarthrosis, lower leg Post-traumatic osteoarthritis of left hip Secondary localized osteoarthrosis, pelvic region and thigh documented in this encounter Administered Medications Inactive Administered Medications - up to 3 most recent administrations Medication Order MAR Action Action Date Dose Rate Site lidocaine (Xylocaine) 1 % injection 6 mL 6 mL, Infiltration, ONCE, 1 dose, On Oly 02/18/23 at 1045 $ Given 02/18/2023 10:28 AM CDT 6 mL triamcinolone acetonide (Kenalog-40) injection 80 mg 80 mg, Intra-articular, ONCE, 1 dose, On Oly 02/18/23 at 1045, Shake well before using. $ Given 02/18/2023 10:28 AM CDT 80 mg Left Knee documented in this encounter Care Teams Auto Body Repairer Fiberglass Relationship Specialty Start Date End Date Gregorio James MD [address] [place] [address] PCP - General 08/11/22 05/16/24 Eric Oconnell MD Hospitalist 10/10/21 documented as of this encounter
--- OUTSIDE RECORDS SUMMARY | 2024-10-19 20:13 | XMS_ITS | Encounter Summary ---
Author Organization [facility] Address [address] [facility] [place] [address] Care Team Providers Care Tree Feller Name Role Phone Major Kraft MD Primary Care Provider [phone] Eric Oconnell MD Unavailable + [phone] Reason for Visit * Auth/Cert Specialty Diagnoses / Procedures Referred By Contmegan t Referred To Contact Diagnoses Other cirrhosis of liver (HCC) Other cirrhosis of liver [K74.69] Procedures CA ED EGD FLEX TRANSORAL DX CA EGD FLEX TRANSORAL W BX SNGL OR MULT ESOPHAGOGASTRODUODENOSCOPY (EGD) DIAGNOSTIC Referral ID Status Reason Start Date Expiration Date Visits Re quested Visits Authorized [id number] 1 1 Encounter Details Date Type Department Care Team (Late st Contact Info) Description 03/05/2022 9:37 AM CDT Anesthesia Event [facility] [address] [place] [phone] David Holt II, MD [facility] [place] [address] Anesthesia Record Procedure Summary Procedure Name Responsible Anesthesiologist Anesthesia Start Time Anesthesia Stop Time EGD (Abdomen) David Holt II, MD 03/05/22 0937 02/22 12/16 0957 Events Date Time Event Comment 03/05/2022 0918 0937 An Start 0937 Pt In Room 0938 An Start Data 0939 Timeout Anesthesia part icipated in timeout at the time documented in the record by nursing. 0940 Anes Timeout 0940 PT Reassessment 0943 Induction 0943 Anes Ready 0943 Proc Start 0948 Proc Stop 0951 An Emergence 0957 an stop data 0957 Pt out of Room 0957 An Stop Meds Name Total lidocaine PF 2% 80 mg propofol 200mg/20mL injection 20 mg propofol 500 mg/50 mL injection 46.8 mg midazolam 2 mg/2mL injection 2 mg NS (0.9% NaCl) 0 mL * Agents Name Insp. N2O Exp. N2O O2 Flow - Auxiliary O2 * Blood No blood administrations on file. Lines, Drains, and Airways Type Details Placement Removal Peripheral IV Date: 03/05/22; Time : 924; Orientation: Anterior, Distal, Right; Placed By: ALFREDO Knight; Tolerance: Well 03/05/22 09 by Leila Land RN 03/05/22 104 by Cherie Whitlock RN documented in this encounter Social History [...] No 03/05/2022 documented as of this encounter Progress Notes * David Holt II, MD - 03/05/2022 10:16 AM CDT ANESTHESIA POSTOP EVALUATION NOTE Procedure: EGD (N/A Abdomen) Lukas Diaz is a 36 year old male Patient Vitals for the past 6 hrs: BP Temp Pulse Resp SpO2 Pain Rating Score #1 Pain Scale/Observation Pulse - (SPO2/Cuff) 03/05/22 0911 -- 98.3 ??F (36.8 ??C) -- -- -- 9 N -- 03/05/22 0920 129/88 -- -- -- -- -- -- -- 03/05/22 0930 132/88 -- 79 20 94 % -- -- 78 bpm 03/05/22 1000 113/85 -- 80 16 96 % 0 N 79 bpm 03/05/22 1015 -- -- 81 17 96 % -- -- 81 bpm Anesthesia Type: general Pre-op Diagnosis Codes: * Other cirrhosis of liver [K74.69] Mental Status: awake Neuro Status: No numbness, tingling or visual disturbances Respiratory Function: natural Cardiac Function: stable Postop Pain: acceptable to the patient Postop Hydration: adequate Postop Nausea: none Assessment: no apparent anesthetic complications, patient tolerated procedure well and no evidence of recall Patient Disposition: Release from Anesthesia Care COMPLICATIONS: No complications documented. * David Holt II, MD - 03/05/2022 9:15 AM CDT ANESTHESIA PREOPERATIVE EVALUATION NOTE Procedure: EGD (N/A Abdomen) Vitals: Patient Vitals for the past 6 hrs: Temp Pain Rating Score #1 03/05/22 0911 98.3 ??F (36.8 ??C) 9 ANESTHESIA PRE-EVALUATION NOTE History of Present Illness: Cirrhosis Hx varices The patient is a current non-smoker. Physical Exam: Orientation X3 Airway/Mallampati Score: II Mouth Opening Distance: 3 fingerwidths Neck ROM: full TM Distance: > 3 FB Teeth: normal Lungs: clear to ausculation bilaterally Abdomen Exam: normal Anes Plan BMI, Height, Weight Tobacco History Estimated body mass index is 26.94 kg/m?? as calculated from the following: Height as of this encounter: 1.702 m (5' 7 ). Weight as of this encounter: 78 kg (172 lb). Social History Tobacco Use Smoking Status [...] have been marked as taking for the 03/05/22 encounter (Hospital Encounter). No current facility-administered medications [...] femur ??? Hypertension ??? Insomnia Surgical History: No past surgical history on file. Covid Vaccine: Lab Results: Recent Labs Component Name 12/18/21416 SARSCOV2 Not detected Recent Labs Component Name 02/16/22 1426 01/05/22 0000 WBC 9.7 7.1 RBC 4.61 - HCT 43.5 41.6 HGB 14.6 14.0 PLTCOUNT 184 - PLT - 250 MCV 94.4 - MCH 31.7 - MCHC 33.6 - MPV 11.6 - Recent Labs Component Name 12/18/21 0444 12/18/21 041 ABORH B POS B POS ABSCG - NEG Recent Labs Component Name 02/16/22 1426 01/05/22 0000 SODIUM - 138 POTASSIUM 3.7 4.0 CALCIUM 10.4* 9.0 CHLORIDE - 104 CO2 31* 23 GLUCOSE 70 96 BUN 9 10 CREATININE 0.76 - Recent Labs Component Name 02/16/22 1426 PT 13.5 INR 1.0 No results found for requested labs within last 120 days. Recent Labs Result Component Current Result Alkaline Phosphatase 130 (02/16/2022) ALT 20 (02/16/2022) Anion Gap 14 (02/16/2022) AST 24 (02/16/2022) Bilirubin Total (EXTERNAL RESULT) 0.4 (01/05/2022) eGFR by CKD-EPI >90 (02/16/2022) documented in this encounter Miscellaneous Notes * Anesthesia Transfer of Care - Yasmine Arita APRN-BUILDING EQUIPMENT OPERATOR - 03/05/2022 9:57 AM CDT ANESTHESIA TRANSFER OF CARE NOTE Today's Date: 03/05/2022 Date of : 1985 Patient: Lukas Diaz Procedure(s) with comments: EGD - esophagitis, antral ulcers, Holt's A. gastric bx R/O H pylori Surgeon(s): Primary: Amos Pabon MD Preop Diagnosis: Pre-op Diagnois: * Other cirrhosis of liver [K74.69] Pre-op Meds (From admission, onward) None Post-op Diagnosis: * Other cirrhosis of liver [K74.69] . Allergies Allergen Reactions ??? Peanut-Derived Anaphylaxis ??? Mushroom Extract Complex Other Chest tightness ??? Shellfish Allergy Other Chest tightness Vitals: Patient Vitals for the past 3 hrs: BP Temp Pulse Resp SpO2 Pain Rating Score #1 03/05/22 0930 132/88 -- 79 20 94 % -- 03/05/22 0920 129/88 -- -- -- -- -- 03/05/2211 -- 98.3 ??F (36.8 ??C) -- -- -- 9 Lines, Drains, and Airways Type Details Placement Removal Peripheral IV Date: 03/05/22; Time: 924; Orientation: Anterior, Distal, Right; Location: Forearm; Placed By: ALFREDO Knight; Gauge: 20 Gauge; Locals: Trans Dermal; Tolerance: Well 03/05/22924 by Leila Land RN Intraprocedure I/O Totals None Patient Transfer Location: PACU Transport Airway: spontaneous respirations Transport Monitoring: heart rate and continuous pulse oximetry Complications: None Handoff Given? [...] understanding of report from the receiving PACUteam. NAFISA Awad documented in this encounter Plan of Treatment Upcoming Encounters Date Type Department Care Team (Late st Contact Info) Description 11/29/2024 8:30 AM METAL SHEET ROLLER OPERATOR Office Visit [facility] - Orthopedic [facility] [address] [facility] [place] [address] Toño Cabrera MD [address] [facility] 280 [place] [address] 01/08/2025 8:00 AM CDT Appointment [facility] [address] [place] [address] 01/08/2025 9:00 AM CDT Office Visit [facility] - GI [address] [facility], [place] [phone] Amos Pabon MD [address] [place] [address] DIV [place] [address] documented as of this encounter Goals Goal [...] infusion Intravenous, CONTINUOUS PRN, Starting on Oly 03/05/22 at 0933, Until Oly 03/05/22 at 0957, Anesthesia Intra-op $ New Bag/Syringe 03/05/2022 9:33 AM CDT lidocaine hcl (PF) (Xylocaine MPF) 2 % injection Intravenous, PRN, Starting on Oly 03/05/22 at 0943, Until Oly 03/05/22 at 0957, Anesthesia Intra-op $ Given 03/05/2022 9:43 AM CDT 80 mg midazolam (Versed) injection Intravenous, PRN, Starting on Oly 03/05/22 at 0943, Until Oly 03/05/22 at 0957, Anesthesia Intra-op $ Given 03/05/2022 9:43 AM CDT 2 mg propofol (Diprivan) infusion Intravenous, CONTINUOUS PRN, Starting on Oly 03/05/22 at 0943, Until Oly 03/05/22 at 0957, Anesthesia Intra-op $ New Bag/Syringe 03/05/2022 9:43 AM CDT 150 mcg/kg/min 70.2 mL/hr propofol (Diprivan) injection Intravenous, PRN, Starting on Oly 03/05/22 at 0943, Until Oly 03/05/22 at 0957, Anesthesia Intra-op $ Given 03/05/2022 9:43 AM CDT 20 mg documented in this encounter Care Teams Tree Feller Relationship Specialty Start Date End Date Major Kraft MD PCP - General 07/01/21 06/08/22 Eric Oconnell MD Hospitalist 10/10/21 documented as of this encounter
--- OUTSIDE RECORDS SUMMARY | 2024-10-19 20:13 | XMS_ITS | Encounter Summary ---
Author Organization [facility] Health Address [address] [facility] [place] [address] Care Team Providers Care Bread Racker Name Role Phone Eric Oconnell MD Unavailable + [phone] Major Kraft MD Primary Care Provider + [phone] Encounter Details Date Type Department Care Team (Late st Contact Info) Description 08/10/2022 Orders Only [facility] [address] [facility] [place] [address] Toño Cabrera MD [address] [facility] [address] [place], [place] [id number] Left knee pain, unspecified chronicity Social History Tobacco Use Types Packs/Day Years [...] st Contact Info) Description 11/29/2024 8:30 AM CASE MANAGEMENT MANAGER Office Visit [facility] - Orthopedic Surgery [address] [place] [address] Toño Cabrera MD [address] [address] 01/08/2025 8:00 AM CDT Appointment [facility] [address] [place] [address] 01/08/2025 9:00 AM CDT Office Visit [facility] - GI [address] [facility], [place] [address] Amos Pabon MD [address] [place] [address] [place] [address] documented as of this encounter Goals Goal [...] as of this encounter Results * XR KNEE LEFT [...] DATE/TIME OF EXAM: ??08/11/2022 9:22 AM, LOCATION ??[facility] INDICATION: M25.562: Pain in left [...] MORE, DATE/TIME OF EXAM: 29:22 AM, LOCATION [facility] INDICATION: M25.562: Pain in left [...] Visit Diagnoses Diagnosis Left knee pain, unspecified chronicity- Primary Left knee pain, unspecified chronicity documented in this encounter Care Teams Bread Racker Relationship Specialty Start Date End Date Major Kraft MD PCP - General 07/06/22 08/10/22 Eric Oconnell MD Hospitalist 10/10/21 documented as of this encounter
--- OUTSIDE RECORDS SUMMARY | 2024-10-19 20:13 | XMS_ITS | Encounter Summary ---
Author Organization [facility] Health Address [address] [place] [address] Care Team Providers Care Boring Machine Set Up Operator Jig Name Role Phone Eric Oconnell MD Unavailable [phone] Raya Carty PA-C Primary Care Provider Reason for Visit * Reason Comments Refill Request Encounter Details Date Type Department Care Team (Late st Contact Info) Description 06/11/2022 Refill [facility] - [address] [place] [phone] Nahed Quinonez RN Refill Request Social History Tobacco Use Types [...] st Contact Info) Description 11/29/2024 8:30 AM SCANNING COORDINATOR Office Visit [facility] - Orthopedic Surgery [address] [place] [address] Toño Cabrera MD [address] [facility] 280 [place] [address] 01/08/2025 8:00 AM CDT Appointment [facility] [address] [place] [address] 01/08/2025 9:00 AM CDT Office Visit [facility] - GI [address] [facility], [place] [address] Amos Pabon MD [address] [place] [address] [place] [address] documented as of this encounter Goals Goal [...] on filedocumented in this encounter Care Teams Boring Machine Set Up Operator Jig Relationship Specialty Start Date End Date Raya Carty PA-C [address] [place] [address] PCP - General 06/09/22 07/05/22 Eric Oconnell MD Hospitalist 10/10/21 documented as of this encounter
--- OUTSIDE RECORDS SUMMARY | 2024-10-19 20:14 | XMS_ITS | Encounter Summary ---
Author Organization [facility] Address [address] [facility] [place] [address] Care Team Providers Care Medical Diagnostic Radiographer Name Role Phone Major Kraft MD Primary Care Provider + [phone] Eric Oconnell MD Unavailable + [phone] Reason for Visit * Reason Onset Date Comments Results 10/10/2021 Encounter Details Date Type Department Care Team (Late st Contact Info) Description 10/10/2021 Telephone [facility] - [address] [place] [phone] Sheridan Ng RN Results Social History Tobacco Use Types [...] on file Sexual Orientation Not on file COVID-19 Exposure Response Date Recorded In the last month, have you been in contact with someone who was confirmed or suspected to have Coronavirus / COVID-19? No / Unsure 10/01/2021 10:22 AM WEB SERVICES MANAGER documented as of this encounter Miscellaneous Notes * Telephone Encounter - Sheridan Ng RN - 10/10/2021 2:06 PM CST Called patient to relay message from Dr. Pabon: Please let him know that his liver labs are improved. Just evidence of low Hgb with iron deficiency. Can follow up locally with GI and start oral Iron pills. Immune to Hep A/B. Elevated IgG, TIFFANY pending, liver enzymes normal. Will need to monitor for now. He states understanding. Order for OTC iron faxed to [facility] and rehab at [phone]. Next scope on 11/11/20. Patient asks if xifaxin is being ordered. Will clarify with Dr. Pabon. Faxing note to Dr. Eric Cat, local GI, with lab results. SERVICES MANAGER documented in this encounter Plan of Treatment Upcoming Encounters Date Type Department Care Team (Late st Contact Info) Description 11/29/2024 8:30 AM WEB SERVICES MANAGER Office Visit [facility] - Orthopedic Surgery [address] [place] [address] Toño Cabrera MD [address] [facility] 280 [place] [address] 01/08/2025 8:00 AM CDT Appointment [facility] [address] [place] [address] 01/08/2025 9:00 AM CDT Office Visit [facility] - GI [address] [facility], [place] [address] Amos Pabon MD [address] [place] [address] [place] [address] documented as of this encounter Goals Goal [...] on filedocumented in this encounter Care Teams Medical Diagnostic Radiographer Relationship Specialty Start Date End Date Major Kraft MD PCP - General 07/01/21 06/08/22 Eric Oconnell MD Hospitalist 10/10/21 documented as of this encounter
--- OUTSIDE RECORDS SUMMARY | 2024-10-19 20:14 | XMS_ITS | Clinical Summary ---
Author Organization [facility] Address [address] [place] [address] Care Team Providers Care Boom Truck Driver Name Role Phone Major Kraft MD Primary Care Provider [phone] Amos Pabon MD Unavailable [phone] Allergies Active Allergy Reactions Criticality Noted Date Comments Mushroom Unknown 01/01/2022 Peanut Unknown 01/01/2022 Medications baclofen (LIORESAL) 10 mg tablet Take 1.5 tablets (15 mg total) by mouth 3 (three) times a day 2 Active busPIRone (BUSPAR) 5 mg tablet Take 1 tablet (5 mg total) by mouth 2 (two) times a day 2 Active ferrous sulfate 325 mg (65 mg of elemental iron) tablet Take 1 tablet (325 mg total) by mouth daily 2 Active folic acid (FOLVITE) 1 mg tablet Take 1 tablet (1 mg total) by mouth daily 2 Active furosemide (LASIX) 40 mg tablet Take 1 tablet (40 mg total) by mouth 2 (two) times a day 2 Active gabapentin (NEURONTIN) 400 mg capsule Take by mouth 3 (three) times a day 2 Active Enulose 10 gram/15 mL solution Take 30 mL (20 g total) by mouth 3 (three) times a day 2 Active potassium chloride ER 20 mEq CR tablet Take 1 tablet (20 mEq total) by mouth daily 2 Active Xifaxan 550 mg tablet Take 1 tablet (550 mg total) by mouth 2 (two) times a day 2 Active spironolactone (ALDACTONE) 100 mg tablet Take 1 tablet (100 mg total) by mouth daily 2 Active traMADoL (ULTRAM) 50 mg tablet Take 1 tablet (50 mg total) by mouth every 6 (six) hours 2 Active thiamine (VITAMIN B1) 100 mg tablet Take 1 tablet (100 mg total) by mouth daily Active cholecalciferol (VITAMIN D-3) 5,000 unit capsule Take 1 capsule (5,000 Units total) by mouth daily Active calcium carbonate (TUMS) 500 mg (200 mg elemental) chewable tablet Take 1 tablet/chew tab (500 mg total) by mouth 3 (three) times a day with meals Active propranoloL (INDERAL) 10 mg tablet Take 1 tablet (10 mg total) by mouth 2 (two) times a day Active ondansetron (ZOFRAN) 4 mg tablet Take 1 tablet (4 mg total) by mouth every 8 (eight) hours as needed for nausea or vomiting Active acetaminophen (TYLENOL) 500 mg tablet Take 2 tablets (1,000 mg total) by mouth every 8 (eight) hours as needed for pain Active melatonin tablet Take 2 tablets (6 mg total) by mouth nightly as needed Active diclofenac sodium (VOLTAREN) 1 % gel Apply 2 g topically 4 (four) times a day as needed (pain) Active hydrOXYzine (ATARAX) 25 mg tablet Take 1 tablet (25 mg total) by mouth 3 (three) times a day 3 Active QUEtiapine (SEROquel) 25 mg tablet Take 0.5 tablets (12.5 mg total) by mouth 3 (three) times a day 3 Active traZODone (DESYREL) 50 mg tablet Take 1 tablet (50 mg total) by mouth nightly 11 3 Active sucralfate (CARAFATE) suspension 1 gram/10 mL Take 10 mL (1 g total) by mouth 3 (three) times a day Active sertraline (ZOLOFT) 50 mg tablet Take 1 tablet (50 mg total) by mouth every morning Active diazePAM (VALIUM) 5 mg tablet Take 1 tablet (5 mg total) by mouth 2 (two) times a day 6 tablet 4 Active Active Problems Problem Noted Date Diagnosed Date Alcohol withdrawal syndrome with complication Hyponatremia 09/29/2023 Hepatic cirrhosis 10/01/2021 Medical History Medical History Date Comments Gastric reflux Alcoholism (CMS/HCC) (HCC) Cirrhosis (HCC) Peptic ulceration Family History Medical History Relation Name Comments No Known Problems Father No Known Problems Mother Relation Name Status Comments Father Mother Social History Tobacco Use Types Packs/Day Years Used Date Smoking Tobacco: Every Day Cigarettes 0.3 18 Tobacco Cessation:Ready to Q uit: Not Asked; Counseling Given: Not Answered [facility] Utilities Answer Date Recorded In the past 12 months has th e Social Bicycles, gas, oil, or water [employer] threatened to shut off services in your home? No 09/29/2023 Social Connection and Isolation Panel [NHANES] A nswer Date Recorded In a typical week, how many times do you talk on the phone with family, friends, or neighbors? Three times a week 09/29/2023 How often do you get togethe r with friends or relatives? Three times a week 09/29/2023 How often do you attend [facility] or christian services? Never 09/29/2023 Do you belong to any clubs o r organizations such as christian groups, unions, fraternal or athletic groups, or school groups? No 09/29/2023 How often do you attend meet ings of the clubs or organizations you belong to? Never 09/29/2023 Are you , , di vorced, , never , or living with a partner? Never 09/29/2023 AUDIT-C Answer Date Recorded Q1: How often do you have a drink containing alcohol? Monthly or less 09/29/2023 Q2: How many drinks containi ng alcohol do you have on a typical day when you are drinking? 10 or more Q3: How often do you have si x or more drinks on one occasion? Daily or almost daily 09/29/2023 Overall Financial Resource Strain (CARDIA) Answe r Date Recorded How hard is it for you to pa y for the very basics like food, housing, medical care, and heating? Not very hard 09/29/2023 Hunger Vital Sign Answer Date Recorded Within the past 12 months, y ou worried that your food would run out before you got the money to buy more. Never true 09/29/20 23 Within the past 12 months, t he food you bought just didn't last and you didn't have money to get more. Never true 09/29/2023 PRAPARE - Transportation Answer Date Re corded In the past 12 months, has l ack of transportation kept you from medical appointments or from getting medications? No 03/2023 In the past 12 months, has l ack of transportation kept you from meetings, work, or from getting things needed for daily living? No 09/29/2023 Housing Stability Vital Sign Answer Larry e Recorded In the last 12 months, was t here a time when you were not able to pay the mortgage or rent on time? No 09/29/2023 In the last 12 months, how many places have you lived? 1 09/29/2023 In the last 12 months, was t here a time when you did not have a steady place to sleep or slept in a penitentiary (including now)? No 09/29/2023 Personal Safety Answer Date Recorded Have you ever been in or are you currently in a harmful physical or emotional relationship or is someone making you feel afraid or unsafe? Denies 09/28/2023 Sex and Gender Information Value Date Recorded Sex Assigned at Not on file Legal Sex Male 1:24 PM SALES SUPERINTENDENT Gender Identity Not on file Sexual Orientation Not on file Occupation Industry Job Start Date Job End Date disabled Not on file Not on file Not on file Obstetrics History Last Filed Vital Signs Vital Sign Reading Time Taken Comments Blood Pressure 130/65 10/26/2023 4:38 AM SALES SUPERINTENDENT Pulse 68 10/26/2023 4:38 AM SALES SUPERINTENDENT Temperature 36.5 ??C (97.7 ??F) 10/26/2023 4:38 AM CS T Respiratory Rate 18 10/26/2023 4:38 AM SALES SUPERINTENDENT Oxygen Saturation 96% 10/26/2023 4:38 AM SALES SUPERINTENDENT Inhaled Oxygen Concentration - - Weight 90.6 kg (199 lb 11.8 oz) 10/05/2023 7:48 AM SALES SUPERINTENDENT Height 170.2 cm (5' 7.01 ) 09/30/2023 7:38 AM CS T Body Mass Index 31.28 09/30/2023 7:38 AM SALES SUPERINTENDENT Plan of Treatment Health Maintenance Due Date Last Done Comments Depression Screening 1984 Hepatitis C Screening 1984 Pneumococcal vaccine <65 (1 of 2 - PCV) 1990 DTaP/Tdap/Td Vaccine (1 - Tdap) 1995 Varicella Vaccines (1 of 2 - 13+ 2-dose series) 1997 Hepatitis B Screening 2002 Regular Well Visit/Exam 18-64 2002 Covid-19 Vaccine (2 - 2023-2 5 season) 2024 08/14/2021 Influenza Vaccine (#1) 2024 HPV Vaccines Aged Out No longer eligi ble based on patient's age to complete this topic Insurance [facility] MEDICARE Advance Directives For more information, please contact: [phone] * Full Code (Latest Code Status on File) Date Activated Date Inactivated Comments 09/30/2023 7:23 AM 10/05/2023 5:12 PM Care Teams Boom Truck Driver Relationship Specialty Start Date End Date Major Kraft MD PCP - General Internal Medicine 11/07/21 Amos Pabon MD [address] [address] Referring Physician Internal Medicine 10/05/23
--- OUTSIDE RECORDS SUMMARY | 2024-10-19 20:14 | XMS_ITS | Encounter Summary ---
Author Organization [facility] Address [address] [facility] [place] [address] Care Team Providers Care Conservation Or Heritage Architect Name Role Phone Major Kraft MD Primary Care Provider + [phone] Encounter Details Date Type Department Care Team (Latest Contact Info) Description 10/01/2021 Travel Social History Tobacco Use Types Packs/Day [...] COVID-19? No / Unsure 10/01/2021 10:22 AM FILAMENT SHAPER documented as of this encounter Plan of Treatment Upcoming Encounters Date Type Department Care Team (Late st Contact Info) Description 11/29/2024 8:30 AM FILAMENT SHAPER Office Visit [facility] - [facility] [address] [facility] [place] [address] Toño Cabrera MD 10[address] [facility] 280 [place] [address] 01/08/2025 8:[address] [facility] [address] [place] [address] 01/08/2025 9:00 AM CDT Office Visit [facility] - GI [address] [facility], [place] [address] Amos Pabon MD [facility] [place] [address] documented as of this encounter Goals Goal [...] on filedocumented in this encounter Care Teams Conservation Or Heritage Architect Relationship Specialty Start Date End Date Major Kraft MD PCP - General 07/01/21 06/08/22 documented as of this encounter
--- OUTSIDE RECORDS SUMMARY | 2024-10-19 20:14 | XMS_ITS | Encounter Summary ---
Author Organization [facility] Address [address] [place] [address] Care Team Providers Care Block Breaker Name Role Phone Major Kraft MD Primary Care Provider + [phone] Eric Oconnell MD Unavailable + [phone] Reason for Visit * Reason Onset Date Comments Medication Issue 10/22/2021 Encounter Details Date Type Department Care Team (Late st Contact Info) Description 10/22/2021 Telephone [facility] - [address] [place] [address] [place] [id number] Fouzia Payne RN Medication Issue Social History Tobacco Use Types [...] have Coronavirus / COVID-19? No / Unsure 10/21/2021 9:44 AM TEST RIDER documented as of this encounter Miscellaneous Notes * Telephone Encounter - Fouzia Payne RN - 10/22/2021 10:48 AM CST Patient called triage stating that he needs to alert Dr. Pabon that he is to stop taking his lactulose when he starts taking xifaxan. Nothing indicated in chart on stopping lactulose. Spoke with MD's RN and she agreed patient is to continue the lactulose with xifaxan. RN also gave results on recent US per ALFREDO Swartz RIDER documented in this encounter Plan of Treatment Upcoming Encounters Date Type Department Care Team (Late st Contact Info) Description 11/29/2024 8:30 AM TEST RIDER Office Visit [facility] - Orthopedic Surgery [address] [facility] [place] [address] Toño Cabrera MD [address] [facility] [address] [place] [address] 01/08/2025 8:00 AM CDT Appointment [facility] [address] [place] [phone] 01/08/2025 9:00 AM CDT Office Visit [facility] - GI [address] [facility] [place] [id number] Amos Pabon MD [address] [place] [address] [address] [place] [address] documented as of this encounter Goals Goal [...] on filedocumented in this encounter Care Teams Block Breaker Relationship Specialty Start Date End Date Major Kraft MD PCP - General 07/01/21 06/08/22 Eric Oconnell MD Hospitalist 10/10/21 documented as of this encounter
--- OUTSIDE RECORDS SUMMARY | 2024-10-19 20:14 | XMS_ITS | Encounter Summary ---
Author Organization [facility] Address [address] [place] [address] [place] [id number] Care Team Providers Care Railroad Firer Name Role Phone Major Kraft MD Primary Care Provider [phone] Reason for Visit * Reason Onset Date Comments Covid-19 Home Monitoring 11/09/2021 Enrollm ent Encounter Details Date Type Department Care Team (Late st Contact Info) Description 11/09/2021 Telephone [facility] Accountable Care Organization [address] [place] [address] Antonia Aquino LPN [address] [place] [id number] Covid-19 Home Monitoring (Enrollment) Social History Tobacco Use Types Packs/Day Years Used Date Smoking Tobacco: Never Assessed Sex and Gender Information Value Date Recorded Sex Assigned at Not on file Legal Sex Male 1:24 PM SOLAR SALES ADVISOR Gender Identity Not on file Sexual Orientation Not on file documented as of this encounter Miscellaneous Notes * Telephone Encounter - Antonia Aquino LPN - 11/09/2021 9:41 AM SOLAR SALES ADVISOR This patient was identified as a candidate for the [facility]/ COVID home monitoring program. The patient was contacted via phone for enrollment in the program. The patient has declined to participate in the automated MyChart Inspector Soldering Program, but has verbally agreed to the Phone Only Home Monitoring Program, which includes being contacted for a daily phone assessment by a [facility]/ staff member. The patient was informed that members of the healthcare team will contact them depending on the symptoms that they report. This call could come from a variety of phone numbers depending on which member of the healthcare team is contacting the patient, and the patient should be prepared to answer calls from a variety of phone numbers. If the patient is unable to be reached for 3 days, they will be disenrolled from the program. Patient is aware that we will try and reach them at every available phone number, including HIPAA contacts. After review, the patient declined to participate. The ???COVID19 Home Monitoring?? order was not placed to enroll the patient in the phone only version of the program. R SALES ADVISOR documented in this encounter Plan of Treatment Not on file documented as of this encounter Visit Diagnoses Not on filedocumented in this encounter Additional Health Concerns Infection Onset Date Last Indicated Resolved Time COVID19 11/08/2021 11/08/2021 11/18/2021 3:05 AM SOLAR SALES ADVISOR documented as of this encounter Care Teams Railroad Firer Relationship Specialty Start Date End Date Major Kraft MD PCP - General Internal Medicine 11/07/21 documented as of this encounter
--- OUTSIDE RECORDS SUMMARY | 2024-10-19 20:14 | XMS_ITS | Encounter Summary ---
Author Organization [facility] Address [address] [place] [address] Care Team Providers Care Regulator Inspector Name Role Phone Major Kraft MD Primary Care Provider [phone] Amos Pabon MD Unavailable [phone] Encounter Details Date Type Department Care Team (Late st Contact Info) Description 12/16/2023 Documentation [facility] Social Work [facility] [place] [address] Jazmín Leonardo Social History Tobacco Use Types Packs/Day Years Used Date Smoking Tobacco: Every Day Cigarettes 0.3 18 [facility] Utilities Answer Date Recorded In the past 12 months has th [employer] electric, gas, oil, or water company threatened to shut off services in your [...] week 09/29/2023 How often do you attend chur ch or confucianism services? Never 09/29/2023 Do you belong to any clubs o r organizations such as cheondoism groups, unions, fraternal or athletic groups, or [...] place to sleep or slept in a usp (including now)? No 09/29/2023 Personal Safety Answer Date Recorded Have you ever been in or are you currently in a harmful physical or emotional relationship or is someone making you feel afraid or unsafe? Denies 09/28/2023 Sex and Gender Information Value Date Recorded Sex Assigned at Not on file Legal Sex Male 1:24 PM BOARD LAYER Gender Identity Not on file Sexual Orientation Not on file Occupation Industry Job Start Date Job End Date disabled Not on file Not on file Not on file documented as of this encounter Progress Notes * Jazmín Leonardo - 12/16/2023 11:24 AM CST Medical Stabilization Peer Ultra Sound Technician Phone Follow-Up Contact to patient for MSUFollowUpCallTimeline: 60 Day follow up contact. Contact was MSUCallAttempt: Unsuccessful. Number listed is incorrect Jazmín Leonardo 11:24 AM 12/16/23 D LAYER documented in this encounter Plan of Treatment Not on file documented as of this encounter Visit Diagnoses Not on filedocumented in this encounter Care Teams Regulator Inspector Relationship Specialty Start Date End Date Major Kraft MD PCP - General Internal Medicine 11/07/21 Amos Pabon MD [address] [address] Referring Physician Internal Medicine 10/05/23 documented as of this encounter
--- OUTSIDE RECORDS SUMMARY | 2024-10-19 20:14 | XMS_ITS | Encounter Summary ---
Author Organization [facility] Address [address] [facility] [place] [address] Care Team Providers Care Tool Checker Name Role Phone Major Kraft MD Primary Care Provider [phone] Encounter Details Date Type Department Care Team (Latest Contact Info) Description 10/01/2021 10:36 AM VP [employer] - 10/01/2021 11:59 PM VP [employer] Hospital Encounter [facility] OP DRAW STATION [address] [place] [phone] Discharge Disposition: Home or Self Care Social [...] COVID-19? No / Unsure 10/01/2021 10:22 AM VP [employer] documented as of this encounter Medications at Time of Discharge Medication Sig Dispensed Refills Start Date End Date busPIRone (BUSPAR) 5 MG tablet Take 1 (one) tablet by mouth 2 times daily folic acid (FOLVITE) 1 MG tablet Take 1 (one) tablet by mouth once daily propranolol (INDERAL) 10 MG tablet Take 1 (one) tablet by mouth 2 times daily furosemide (LASIX) 20 MG tablet Take 60 mg by mouth once daily 02/22/2022 gabapentin (NEURONTIN) 100 MG capsule Take 100 mg by mouth 3 times daily 12/18/2021 gabapentin (NEURONTIN) 300 MG capsule Take 300 mg by mouth 3 times daily 12/18/2021 lactulose (CHRONULAC) 10 GM/15ML solution Take 5 mL by mouth 3 times daily 06/29/2023 melatonin 3 MG tablet Take 3 mg by mouth nightly as needed for Insomnia 12/18/2021 mirtazapine (REMERON) 30 MG tablet Take 30 mg by mouth at bedtime 02/19/2023 ondansetron, disintegrating, (ZOFRAN ODT) 4 MG tablet Take 4 mg by mouth every 6 hours as needed for Nausea/Vomiting Allow tablet to dissolve on the tongue 12/18/2021 pantoprazole EC (PROTONIX) 40 MG tablet Take 1 (one) tablet by mouth 2 times daily 02/19/2023 spironolactone (ALDACTONE) 100 MG tablet Take 100 mg by mouth once daily 02/22/2022 spironolactone (ALDACTONE) 50 MG tablet Take 1 (one) tablet by mouth once daily 06/29/2023 THIAMINE HCL PO Take 100 mg by mouth once daily 12/18/2021 traMADol (ULTRAM) 50 MG tablet Take 50 mg by mouth 3 times daily as needed for Pain 12/18/2021 documented as of this encounter Progress Notes * Amos Pabon MD - 10/01/2021 11:59 PM CST Please let him know that his liver labs are improved. Just evidence of low Hgb with iron deficiency. Can follow up locally with GI and start oral Iron pills. Immune to Hep A/B. Elevated IgG, TIFFANY pending, liver enzymes normal. Will need to monitor for now. [employer]ES WE[employer] documented in this encounter Plan of Treatment Upcoming Encounters Date Type Department Care Team (Late st Contact Info) Description 11/29/2024 8:30 AM VP [employer] SALES [employer] Office Visit [facility] - Orthopedic Surgery [address] [place] [phone] Toño Cabrera MD [address] [address] 01/08/2025 8:00 AM CDT Appointment [facility] [address] [place] [phone] 01/08/2025 9:00 AM CDT Office Visit [facility] - GI [address] [facility] [place] [phone] Amos Pabon MD [address] [facility] [address] [place] [address] documented as of this encounter Goals Goal [...] Name Priority Date/Time Associated Diagnosis Comments PT-INR [facility] Routine 10/01/2021 11:38 AM VP [employer] Cirrhosis of liver with ascites, unspecified hepatic cirrhosis type (HCC) TIFFANY BLOOD SCREEN W/REFLEX TITER Routine 10/01/2021 11:38 AM VP [employer] Cirrhosis of liver with ascites, unspecified hepatic cirrhosis type (HCC) ALPHA FETOPROTEIN BLOOD TUMOR MARKER Routine 10/01/2021 11:38 AM VP [employer] WE[employer] Cirrhosis of liver with ascites, unspecified hepatic cirrhosis type (HCC) [id number] BLOOD Routine 10/01/2021 11:38 AM VP [employer] WE[employer] Cirrhosis of liver with ascites, unspecified hepatic cirrhosis type (HCC) CBC W/O DIFFERENTIAL Routine 10/01/2021 11:38 AM VP [employer] WE[employer] Cirrhosis of liver with ascites, unspecified hepatic cirrhosis type (HCC) BASIC METABOLIC PANEL (CALCIUM TOTAL) Routine 10/01/2021 11:38 AM VP [employer] Cirrhosis of liver with ascites, unspecified hepatic cirrhosis type (HCC) HEPATIC FUNCTION PANEL Routine 10/01/2021 11:38 AM VP [employer] Cirrhosis of liver with ascites, unspecified hepatic cirrhosis type (HCC) IRON BLOOD Routine 10/01/2021 11:38 AM VP [employer] Cirrhosis of liver with ascites, unspecified hepatic cirrhosis type (HCC) HEPATITIS B SURFACE ANTIBODY Routine 10/01/2021 11:38 AM VP [employer] Cirrhosis of liver with ascites, unspecified hepatic cirrhosis type (HCC) HEPATITIS B CORE ANTIBODY TOTAL Routine 10/01/2021 11:38 AM VP [employer] Cirrhosis of liver with ascites, unspecified hepatic cirrhosis type (HCC) HEPATITIS B SURFACE ANTIGEN W RFLX CONFIRMATION Routine 10/01/2021 11:38 AM VP [employer] Cirrhosis of liver with ascites, unspecified hepatic cirrhosis type (HCC) IGG BLOOD Routine 10/01/2021 11:38 AM VP [employer] WE[employer] Cirrhosis of liver with ascites, unspecified hepatic cirrhosis type (HCC) HEPATITIS C ANTIBODY Routine 10/01/2021 11:38 AM VP [employer] WEST Cirrhosis of liver with ascites, unspecified hepatic cirrhosis type (HCC) HEPATITIS A ANTIBODY Routine 10/01/2021 11:38 AM VP [employer] WEST Cirrhosis of liver with ascites, unspecified hepatic cirrhosis type (HCC) FERRITIN Routine 10/01/2021 11:38 AM VP [employer] WE[employer] Cirrhosis of liver with ascites, unspecified hepatic cirrhosis type (HCC) documented in this encounter Results * (ABNORMAL) IRON BLOOD (10/01/2021 11:38 AM VP [employer]) Iron 17(L) 50 - 175 ug/dL 10/01/2021 12:55 PM VP [employer] SAL[employer] [facility] Blood BLOOD SPECIMEN / Unknown Lab Venipuncture / Unknown 10/01/2021 11:38 AM VP [employer] 10/01/2021 11:46 AM VP [employer] Amos Pabon MD LAB - CHEMISTRY KURT ZARAGOZA Performing Organization Address City/[facility]/ZIP Co de Phone Number [address] [address], [facility] [phone] * (ABNORMAL) IGG BLOOD (10/01/2021 11:38 AM VP [employer] SALES WE[employer]) IgG 2,513(H) 767-1,590 mg/dL 10/01/2021 12:55 PM VP AD SAL[facility]ST [facility] Blood BLOOD SPECIMEN / Unknown Lab Venipuncture / Unknown 10/01/2021 11:38 AM VP [employer]ST 10/01/2021 11:46 AM VP [employer] SAL[employer] WE[employer] Amos Pabon MD LAB - CHEMISTRY KURT ZARAGOZA Performing Organization Address City/[facility]/ZIP Co de Phone Number [address] [address], [facility] [phone] * (ABNORMAL) FERRITIN (10/01/2021 11:38 AM VP [employer] SALES WE[employer]) Pathologist [facility] Ferritin 19(L) 22 - 275 ng/mL 10/01/2021 1:14 PM VP AD SAL[facility] Blood BLOOD SPECIMEN / Unknown Lab Venipuncture / Unknown 10/01/2021 11:38 AM VP [employer]ST 10/01/2021 11:46 AM VP [employer] SALES WEST Amos Pabon MD LAB - CHEMISTRY KURT ZARAGOZA Performing Organization Address City/[facility]/ZIP Co de Phone Number [address] [address], [facility] [phone] * TIFFANY BLOOD SCREEN W/REFLEX TITER (10/01/2021 11:38 AM VP [employer] SALES WEST) TIFFANY IgG None Detected None Detected 10/04/2021 12:34 AM VP AD SALES WEST [facility] ([facility]) Comment: If suspicion of connective tissue disease is strong and TIFFANY EIA is negative, consider testing for TIFFANY by IFA ([id number]). INTERPRETIVE INFORMATION: Anti-Nuclear Antibodies (TIFFANY), IgG by SAVANNAH Antinuclear Antibodies (TIFFANY), IgG by SAVANNAH: TIFFANY specimens are screened using enzyme-linked immunosorbent assay (SAVANNAH) methodology. All SAVANNAH results reported as Detected are further tested by indirect fluorescent assay (IFA) using HEp-2 substrate with an IgG-specific conjugate. The TIFFANY SAVANNAH screen is designed to detect antibodies against dsDNA, histones, SS-A (Ro), SS-B (La), Clayton, Clayton/GREEN COFFEE BLENDER, Scl-70, Nuris-1, centromeric proteins, other antigens extracted from the HEp-2 cell nucleus. TIFFANY SAVANNAH assays have been reported to have lower sensitivities than TIFFANY IFA for systemic autoimmune rheumatic diseases (SARD). Negative results do not necessarily rule out SARD. Performed By: [facility] [address] [place] [address] Police Crime Scene Technician: Ivanna Ballard MD Blood BLOOD SPECIMEN / Unknown Lab Venipuncture / Unknown 10/01/2021 11:38 AM VP [employer] 10/01/2021 11:45 AM VP [employer] SAL[employer] Amos Pabon MD LAB - CHEMISTRY KURT ZARAGOZA Performing Organization Address City/[facility] Co de Phone Number [facility] ([facility]) [address] [place] [address] * [id number] BLOOD (10/01/2021 11:38 AM VP AD SALES WEST) [facility] Btosz-1-Nlqxnq ypsin 159 90 - 200 mg/dL 10/01/2021 12:55 PM VP AD SALES WEST [facility] Blood BLOOD SPECIMEN / Unknown Lab Venipuncture / Unknown 10/01/2021 11:38 AM VP [employer] SALES WE[employer] 10/01/2021 11:46 AM VP [employer] SALES WE[employer] Amos Pabon MD LAB - CHEMISTRY KURT ZARAGOZA [facility] [address] [place] [address], [facility] [phone] * HEPATITIS C ANTIBODY (10/01/2021 11:38 AM VP AD SALES WEST) [facility] Hepatitis C Antibody Non-react young Non-reac tive 10/01/2021 1:14 PM VP AD SALES [facility]ST [facility] Comment:Hepatitis C Antibody screen indicates no serologic evidence of past or current infection with Hepatitis C Virus. Patients with unexplained liver disease who are immunocompromised or suspected of having acute Hepatitis C infection may benefit from Nucleic Acid Test (MARIBELL) for Hepatitis C Viral RNA to confirm Hepatitis C status. Blood BLOOD SPECIMEN / Unknown Lab Venipuncture / Unknown 10/01/2021 11:38 AM VP [employer] SALES WEST 10/01/2021 11:46 AM VP AD SALES WEST Amos Pabon MD LAB - CHEMISTRY KURT ZARAGOZA Performing Organization Address City/[facility]/ZIP Co de Phone Number [address] [address], [facility] [phone] * HEPATITIS B SURFACE ANTIGEN W RFLX CONFIRMATION (10/01/2021 11:38 AM VP AD SALES WEST) Hepatitis B Virus Surface Antigen Non-reacti ve Non-reacti ve 10/01/2021 1:14 PM [facility] Blood BLOOD SPECIMEN / Unknown Lab Venipuncture / Unknown 10/01/2021 11:38 AM VP [employer] SALES WEST 10/01/2021 11:46 AM VP [employer] SALES WE[employer] Amos Pabon MD LAB - CHEMISTRY KURT ZARAGOZA Performing Organization Address [facility] Co de Phone Number [address] [address], [facility] [phone] * (ABNORMAL) HEPATITIS B SURFACE ANTIBODY (10/01/2021 11:38 AM VP [employer] SAL[employer] WE[employer]) Hepatitis B Virus Surface Antibody Reactive( A) Non-react young 10/01/2021 1:14 PM [facility] Comment: > 12 mIU/mL Hepatitis B surface Antibody (HBsAb). Reactive for HBsAb - individual is considered immune to Hepatitis B Virus infection. Hepatitis B Surface Antibody Quantitative 50.9(H) <8.0 mIU/mL 10/01/2021 1:14 PM [facility] Comment: Hepatitis B Surface Antibody Numeric Result Interpretation: ? Nonreactive: ?<8.0 mIU/mL ? Indeterminate: ??8.0 - 12.0 mIU/mL ? Reactive: ?>12.0 mIU/mL ? Blood BLOOD SPECIMEN / Unknown Lab Venipuncture / Unknown 10/01/2021 11:38 AM VP [employer] 10/01/2021 11:46 AM VP [employer] SALES WE[employer] Amos Pabon MD LAB - CHEMISTRY KURT ZARAGOZA Performing Organization Address City/[facility]/ZIP Co de Phone Number [address] [address], [facility] [phone] * HEPATITIS B CORE ANTIBODY (10/01/2021 11:38 AM VP AD SALES WEST) HBc Antibody Total Non-reacti ve Non-reacti ve 10/01/2021 1:14 PM VP AD SALES [facility]ST [facility] Blood BLOOD SPECIMEN / Unknown Lab Venipuncture / Unknown 10/01/2021 11:38 AM VP [employer]ES WEST 10/01/2021 11:46 AM VP [employer] SALES WE[employer] Amos Pabon MD LAB - CHEMISTRY KURT ZARAGOZA Performing Organization Address [facility] Co de Phone Number [address] [address], [place] [phone] * (ABNORMAL) HEPATITIS A ANTIBODY (10/01/2021 11:38 AM VP [employer] SALES WEST) Hepatitis A Virus Antibody Total Positive( A) Negative 10/03/2021 5:38 PM VP AD SALES WEST [facility] ([facility]) Comment: The positive anti-HAV is consistent with recent or remote Hepatitis A infection or antibody response to HAV vaccination. False positive anti-HAV can occur. Performed by [facility], [address] [place] [id number] [email or web address], Ivanna Ballard MD, Lab. Director Blood BLOOD SPECIMEN / Unknown Lab Venipuncture / Unknown 10/01/2021 11:38 AM VP [employer] 10/01/2021 11:45 AM VP [employer] WE[employer] Amos Pabon MD LAB - CHEMISTRY ORDSukhjinder ZARAGOZA [facility] ([facility]) [address] * (ABNORMAL) PT-INR [facility] (10/01/2021 11:38 AM VP [employer] SALES WEST) PT 15.5(H) 12.1 - 14.8 Seconds 10/01/2021 12:07 PM [facility] INR 1.2 See Comment 10/01/2021 12:07 PM [facility] Comment:The suggested therap eutic range for standard coumadin (warfarin) therapy is an INR of 2.0-3.0. For high-risk patients (Mechanical Mitral Valve Prosthesis, etc.), the suggested prophylactic therapeutic range is an INR of 2.5-3.5. Blood BLOOD SPECIMEN / Unknown Lab Venipuncture / Unknown 10/01/2021 11:38 AM VP [employer] SALES WEST 10/01/2021 11:46 AM VP [employer] SALES WEST Amos Pabon MD LAB - COAGULATION OR DERABLES [facility] [address] [place] [address], [facility] [phone] * (ABNORMAL) HEPATIC FUNCTION PANEL (10/01/2021 11:38 AM VP [employer] SALES WEST) Protein Total 8.6(H) 6.0 - 8.3 g/dL 021 12:16 PM [facility] Albumin 3.3(L) 3.4 - 5.0 g/dL 10/01/2021 12:16 PM [facility] Bilirubin Total 0.6 0.2 - 1.2 mg/dL 05/2021 12:16 PM [facility] Bilirubin Conjugated 0.2 0.1 - 0.5 mg/dL 10/01/2021 12:16 PM [facility] Bilirubin Unconjugated 0.4 Unconjugated Bilirubin is a calculated value: Reference ranges have not been established. mg/dL 10/01/2021 12:16 PM [facility] Alkaline Phosphatase 134 40 - 150 U/L 10/01/2021 12:16 PM [facility] ALT 24 5 - 55 U/L 10/01/2021 12:16 PM [facility] AST 34 5 - 34 U/L 10/01/2021 12:16 PM [facility] Albumin/Globulin Ratio 0.6(L) 1.1 - 2.3 10/01/2021 12:16 PM [facility] Blood BLOOD SPECIMEN / Unknown Lab Venipuncture / Unknown 10/01/2021 11:38 AM VP [employer] WE[employer] 10/01/2021 11:46 AM VP [employer] WE[employer] Amos Pabon MD LAB - CHEMISTRY KURT ZARAGOZA [facility] [address] [place] [address], [facility] [phone] * (ABNORMAL) BASIC METABOLIC PANEL (CALCIUM TOTAL) (10/01/2021 11:38 AM VP [employer] SALES WEST) BUN 10 7 - 26 mg/dL 10/01/2021 12:16 PM [facility] Creatinine 0.67(L) 0.71 - 1.16 mg/dL 10/01/2021 12:16 PM [facility] Sodium 136 136 - 145 mmol/L 10/01/2021 12:16 PM [facility] Potassium 3.8 3.5 - 4.5 mmol/L 10/01/2021 12:16 PM [facility] Chloride 105 98 - 107 mmol/L 10/01/2021 12:16 PM [facility] CO2 23 22 - 29 mmol/L 10/01/2021 12:16 PM [facility] Glucose 111 70 - 115 mg/dL 10/01/2021 12:16 PM [facility] Calcium 9.1 8.4 - 10.2 mg/dL 10/01/2021 12:16 PM [facility] Anion Gap 12 - 18 10/01/2021 12:16 PM [facility] BUN/Creatinine Ratio 15 7 - 23 10/01/2021 12:16 PM [facility] Osmolality Calculated 282 270 - 300 mOsm/kg 10/01/2021 12:16 PM [facility] eGFR by CKD-EPI >90 >=90 mL/min/1.7 3 m2 10/01/2021 12:16 PM [facility] Blood BLOOD SPECIMEN / Unknown Lab Venipuncture / Unknown 10/01/2021 11:38 AM VP [employer] 10/01/2021 11:46 AM VP [employer] WE[employer] Amos Pabon MD LAB - CHEMISTRY KURT Cid Organization Address City/State/ZIP Co de Phone Number [facility] [address] [place] [phone], [facility] [phone] * (ABNORMAL) CBC W/O DIFFERENTIAL (10/01/2021 11:38 AM VP [employer] WE[employer]) WBC 4.3 3.5 - 10.5 10? 3 /uL 10/01/2021 12:06 PM [facility] RBC 3.52(L) 4.30 - 5.70 10? 6 /uL 10/01/2021 12:06 PM [facility] Hemoglobin 9.8(L) 12.0 - 17.6 g/dL 10/01/2021 12:06 PM [facility] Hematocrit 31.0(L) 35.2 - 51.7 % 10/01/2021 12:06 PM [facility] MCV 88.1 80.7 - 98.3 fL 10/01/2021 12:06 PM [facility] MCH 27.8 26.7 - 34.0 pg 10/01/2021 12:06 PM [facility] MCHC 31.6 30.8 - 35.9 g/dL 10/01/2021 12:06 PM [facility] Platelet Count 209 150 - 400 10? 3 /uL 10/01/2021 12:06 PM [facility] RDW-SD 51.8(H) 36.0 - 50.0 fL 10/01/2021 12:06 PM [facility] RDW-CV 15.9(H) 11.2 - 14.8 % 10/01/2021 12:06 PM [facility] MPV 9.2(L) 9.4 - 12.9 fL 10/01/2021 12:06 PM [facility] nRBC Absolute 0.00 0 10? 3 /uL 10/01/2021 12:06 PM [facility] nRBC Auto 0.0 0 /100 WBC 10/01/2021 12:06 PM [facility] Blood BLOOD SPECIMEN / Unknown Lab Venipuncture / Unknown 10/01/2021 11:38 AM VP [employer] 10/01/2021 11:51 AM VP [employer] WE[employer] Amos Pabon MD LAB - HEMATOLOGY ORD ERABLES [address] [address], [place] [phone] * ALPHA FETOPROTEIN BLOOD TUMOR MARKER (10/01/2021 11:38 AM VP [employer]ES WEST) Alpha-Fetoprote in Tumor Marker 2.6 <=8.3 ng/mL 10/01/2021 12:35 PM [facility] Comment: AFP values will vary depending on testing procedure used. Results are not comparable across different methods. AFP values obtained by [facility] using an Jenkins Alinity Immunoassay. Blood BLOOD SPECIMEN / Unknown Lab Venipuncture / Unknown 10/01/2021 11:38 AM VP [employer] 10/01/2021 11:51 AM VP [employer] SAL[employer] WE[employer] Amos Pabon MD LAB - CHEMISTRY ORDE RABLES [address] [address], [place] [phone] documented in this encounter Visit Diagnoses Diagnosis Cirrhosis of liver with ascites, unspecified hepatic cirrhosis type (HCC) documented in this encounter Care Teams Tool Checker Relationship Specialty Start Date End Date Major Kraft MD PCP - General 07/01/21 06/08/22 documented as of this encounter
--- OUTSIDE RECORDS SUMMARY | 2024-10-19 20:14 | XMS_ITS | Encounter Summary ---
Author Organization [facility] Healthcare Address [address] [place], [place] [id number] Care Team Providers Care Coagulating Bath Mixer Name Role Phone Major Kraft MD Primary Care Provider [phone] Reason for Referral * Diagnostic Imaging (Routine) - Closed Specialty Diagnoses / Procedures Referred By Contac t Referred To Contact Diagnoses Left hip pain Procedures XR Hip Left 2 or 3 Views Isaak Chase MD [address] [place] [address] [address] Phone: tel: fax: [address] [phone] Referral ID Status Reason Start Date Expiration Date Visits Re quested Visits Authorized [id number] Closed 08/24/2022 09/23/2023 1 1 Reason for Visit * Diagnostic Imaging (Routine) - Closed Specialty Diagnoses / Procedures Referred By Contac t Referred To Contact Diagnoses Left hip pain Procedures XR Hip Left 2 or 3 Views Isaak Chase MD [address] [place] [address] [address] Phone: tel: fax: [address] [phone] Referral ID Status Reason Start Date Expiration Date Visits Re quested Visits Authorized [id number] Closed 08/24/2022 09/23/2023 1 1 Encounter Details Date Type Department Care Team (Latest Contact Info) Description 08/25/2022 1:28 PM CDT - 08/25/2022 11:59 PM CDT Hospital Encounter [facility] Di[facility] Imaging [address] [place] [address] Left hip pain Discharge Disposition: Discharge to home or self care Social History Tobacco Use Types Packs/Day Years Used Date Smoking Tobacco: Never Sex and Gender Information Value Date Recorded Sex Assigned at Not on file Legal Sex Male 1:24 PM PSYCH NP Gender Identity Not on file Sexual Orientation Not on file Occupation Industry Job Start Date Job End Date disabled Not on file Not on file Not on file documented as of this encounter Medications at Time of Discharge acetaminophen (TYLENOL) 500 mg tablet Take 2 tablets (1,000 mg total) by mouth every 8 (eight) hours as needed for pain baclofen (LIORESAL) 10 mg tablet Take 1.5 tablets (15 mg total) by mouth 3 (three) times a day 08/15/2022 busPIRone (BUSPAR) 5 mg tablet Take 1 tablet (5 mg total) by mouth 2 (two) times a day 08/03/2022 calcium carbonate (TUMS) 500 mg (200 mg elemental) chewable tablet Take 1 tablet/chew tab (500 mg total) by mouth 3 (three) times a day with meals cholecalciferol (VITAMIN D-3) 5,000 unit capsule Take 1 capsule (5,000 Units total) by mouth daily diclofenac sodium (VOLTAREN) 1 % gel Apply 2 g topically 4 (four) times a day as needed (pain) Enulose 10 gram/15 mL solution Take 30 mL (20 g total) by mouth 3 (three) times a day 08/16/2022 ferrous sulfate 325 mg (65 mg of elemental iron) tablet Take 1 tablet (325 mg total) by mouth daily 07/30/2022 folic acid (FOLVITE) 1 mg tablet Take 1 tablet (1 mg total) by mouth daily 08/03/2022 furosemide (LASIX) 40 mg tablet Take 1 tablet (40 mg total) by mouth 2 (two) times a day 08/25/2022 gabapentin (NEURONTIN) 400 mg capsule Take by mouth 3 (three) times a day 08/18/2022 melatonin tablet Take 2 tablets (6 mg total) by mouth nightly as needed ondansetron (ZOFRAN) 4 mg tablet Take 1 tablet (4 mg total) by mouth every 8 (eight) hours as needed for nausea or vomiting potassium chloride ER 20 mEq CR tablet Take 1 tablet (20 mEq total) by mouth daily 08/24/2022 propranoloL (INDERAL) 10 mg tablet Take 1 tablet (10 mg total) by mouth 2 (two) times a day spironolactone (ALDACTONE) 100 mg tablet Take 1 tablet (100 mg total) by mouth daily 07/30/2022 thiamine (VITAMIN B1) 100 mg tablet Take 1 tablet (100 mg total) by mouth daily traMADoL (ULTRAM) 50 mg tablet Take 1 tablet (50 mg total) by mouth every 6 (six) hours 08/05/2022 Xifaxan 550 mg tablet Take 1 tablet (550 mg total) by mouth 2 (two) times a day 08/24/2022 citalopram (CeleXA) 10 mg tablet 08/04/2022 3 mirtazapine (REMERON) 7.5 mg tablet 08/11/[address] (PROTONIX) 40 mg EC tablet 08/21/2022 3 sucralfate (CARAFATE) 1 gram tablet TAKE 1 TABLET BY MOUTH BEFORE MEALS AND AT BEDTIME 05/20/2022 3 documented as of this encounter Discharge Disposition Disposition Code Departure Means Destination Discharge to home or self care documented in this encounter Plan of Treatment Not on file documented as of this encounter Procedures Procedure Name Priority Date/Time Associated Diagnosis Comments XR HIP LEFT 2 OR 3 VIEWS Schedule Routine, Read Routine (OP Routine) 08/25/2022 1:34 PM CDT Left hip pain documented in this encounter Results * XR Hip Left 2 or 3 Views (08/25/2022 1:34 PM CDT) Anatomical Region Laterality Modality Lower Extremities, Hip, Pelvis Left C omputed Radiography 08/25/2022 2:45 PM CDT Narrative 08/25/2022 2:46 PM CDT EXAM DESCRIPTION: ?? XR HIP LEFT 2 OR 3 VIEWS REASON FOR STUDY: ?? Left hip pain. ??Old injury. COMPARISON: ??None. FINDINGS: Two views of the left hip are reviewed. ??These images reveal a displaced fracture in the subcapital region of the left femoral neck. ??There is proximal migration of the femoral shaft in relationship to the fracture site. ??There is disuse osteopenia. ??There are no acute findings. 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 THIS IS AN ELECTRONICALLY VERIFIED FINAL REPORT 08/25/2022 2:46 PM - Electronically signed by ??Isaak BUNDY D: ??08/25/2022 2:46 PM T: Report ID: [id number] Reading Location: ??[place] [address] Procedure Note Isaak Chase MD - 08/25/2022 EXAM DESCRIPTION: XR HIP LEFT 2 OR 3 VIEWS REASON FOR STUDY: Left hip pain. Old injury. COMPARISON: None. FINDINGS: Two views of the left hip are reviewed. These images reveal a displaced fracture in the subcapital region of the left femoral neck. There isproximal migration of the femoral shaft in relationship to the fracture site.There is disuse osteopenia. There are no acute findings. 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 THIS IS AN ELECTRONICALLY VERIFIED FINAL REPORT 08/25/2022 2:46 PM - Electronically signed by Isaak BUNDY T: Report ID: [id number] Reading Location: [place] [address] Isaak Chase MD IMG XR PROCEDURES Final Resu lt documented in this encounter Visit Diagnoses Diagnosis Left hip pain Pain in joint, pelvic region and thigh documented in this encounter Care Teams Coagulating Bath Mixer Relationship Specialty Start Date End Date Major Kraft MD PCP - General Internal Medicine 11/07/21 documented as of this encounter
--- OUTSIDE RECORDS SUMMARY | 2024-10-19 20:14 | XMS_ITS | Encounter Summary ---
Author Organization [facility] Address [address] [place] [address] Care Team Providers Care Rental Representative Name Role Phone Major Kraft MD Primary Care Provider [phone] Eric Oconnell MD Unavailable [phone] Reason for Referral * Radiology Services (Routine) - Closed Specialty Diagnoses / Procedures Referred By Contac t Referred To Contact Diagnoses Cirrhosis of liver with ascites, unspecified hepatic cirrhosis type (HCC) Procedures US ABDOMEN LIMITED Amos Pabon MD [address] [place] [address] [facility] [address] [place] [address] Referral ID Status Reason Start Date Expiration Date Visits Re quested Visits Authorized [id number] Closed 10/01/2021 10/01/2022 1 1 ER AND CELLOPHANER MACHINE HELPER Reason for Visit * Radiology Services (Routine) - Closed Specialty Diagnoses / Procedures Referred By Contac t Referred To Contact Diagnoses Cirrhosis of liver with ascites, unspecified hepatic cirrhosis type (HCC) Procedures US ABDOMEN LIMITED Amos Pabon MD [address] [facility] [place] [place] [address] [facility] [address] [place] [address] Referral ID Status Reason Start Date Expiration Date Visits Re quested Visits Authorized [id number] Closed 10/01/2021 10/01/2022 1 1 Encounter Details Date Type Department Care Team (Latest Contact Info) Description 10/21/2021 9:46 AM BANDER AND CELLOPHANER MACHINE HELPER - 10/21/2021 11:59 PM BANDER AND CELLOPHANER MACHINE HELPER Hospital Encounter [facility] [address] [place] [address] Amos Pabon MD [address] [place] [address] Discharge Disposition: Home or Self Care Social [...] COVID-19? No / Unsure 10/21/2021 9:44 AM BANDER AND CELLOPHANER MACHINE HELPER documented as of this encounter Medications at [...] 1 (one) tablet by mouth once daily 90 tablet 3 10/10/2021 12/18/2021 furosemide (LASIX) 20 MG tablet Take 60 [...] tablet by mouth 2 times daily 02/19/2023 rifAXIMin (XIFAXAN) 550 MG tablet Take [...] Progress Notes * Amos Pabon MD - 10/21/2021 5:34 PM CST Plz let him know that US shows stable cirrhosis, no ascites or worrisome liver lesions. Will continue to follow for now. ER AND CELLOPHANER MACHINE HELPER documented in this encounter Plan of Treatment Upcoming Encounters Date Type Department Care Team (Late st Contact Info) Description 11/29/2024 8:30 AM BANDER AND CELLOPHANER MACHINE HELPER Office Visit [facility] - Orthopedic Surgery [address] [place] [address] Toño Cabrera MD [address] [facility] [address] [place] [address] 01/08/2025 8:00 AM CDT Appointment [facility] [address] [place] [address] 01/08/2025 9:00 AM CDT Office Visit [facility] - GI [address] [facility] [place] [address] Amos Pabon MD [address] [facility] [address] [place] [address] documented as of this encounter Goals Goal [...] Associated Diagnosis Comments US ABDOMEN LIMITED Routine 10/21/2021 10 :20 AM BANDER AND CELLOPHANER MACHINE HELPER Cirrhosis of liver with ascites, unspecified hepatic cirrhosis type (HCC) documented in this encounter Results * US ABDOMEN LIMITED (10/21/2021 10:20 AM BANDER AND CELLOPHANER MACHINE HELPER) Anatomical Region Laterality Modality Abdomen Ultrasound 10/21/2021 10:4 4 AM BANDER AND CELLOPHANER MACHINE HELPER Impressions 10/21/2021 11:38 AM BANDER AND CELLOPHANER MACHINE HELPER IMPRESSION: 1.Hepatic cirrhosis with sequela of portal hypertension (recanalization of the umbilical vein) without discrete hepatic lesion. 2.Splenomegaly. 3.No evidence of cholelithiasis or acute cholecystitis. Dictated by Lawrence Meyers D.O. (General Farmworker) I, Dr. BINA PEREZ M.D. have personally reviewed and interpreted this examination/study. This report was electronically signed by BINA PEREZ M.D. ??on 10/21/2021 11:38 AM . Narrative 10/21/2021 11:38 AM BANDER AND CELLOPHANER MACHINE HELPER EXAMINATION: Limited abdominal sonogram HISTORY: K74.60: Cirrhosis of liver with ascites, unspecified hepatic cirrhosis type R18.8: Cirrhosis of liver with ascites, unspecified hepatic cirrhosis type COMPARISON: None. FINDINGS: The liver has a coarse echotexture and nodular surface, consistent with cirrhosis. No discrete hepatic mass or intrahepatic biliary dilatation is seen. Color Doppler evaluation demonstrates patency of the hepatic and portal veins. Incidental note is made of recanalized umbilical vein. No gallstones or pericholecystic fluid is seen. The gallbladder wall is normal in thickness, measuring 2 mm. Sonographic Venegas's sign is negative. The common bile duct is nondilated, measuring 2 mm. The spleen is mildly enlarged and measures 14.4 cm in length. The visible pancreas is normal in echogenicity. No ascites is present. The right kidney measures 11.0 x 6.7 x 5.7 cm. There is no evidence of hydronephrosis, nephrolithiasis, or solid renal mass. Procedure Note Bina Perez MD - 10/21/2021 EXAMINATION: Limited abdominal sonogram HISTORY: K74.60: Cirrhosis of liver with ascites, unspecified hepatic cirrhosis type R18.8: Cirrhosis of liver with ascites, unspecified hepatic cirrhosistype COMPARISON: None. FINDINGS: The liver has a coarse echotexture and nodular surface, consistent with cirrhosis. No discrete hepatic mass or intrahepatic biliary dilatationis seen. Color Doppler evaluation demonstrates patency of the hepatic and portal veins. Incidental note is made of recanalized umbilical vein. No gallstones or pericholecystic fluid is seen. The gallbladder wall is normal in thickness, measuring 2 mm. Sonographic Venegas's sign is negative. The common bile duct is nondilated, measuring 2 mm. The spleen is mildly enlarged and measures 14.4 cm in length. Thevisible pancreas is normal in echogenicity. No ascites is present. The right kidney measures 11.0 x 6.7 x 5.7 cm. There is no evidence of hydronephrosis, nephrolithiasis, or solid renal mass. IMPRESSION: 1.Hepatic cirrhosis with sequela of portal hypertension (recanalizationof the umbilical vein) without discrete hepatic lesion. 2.Splenomegaly. 3.No evidence of cholelithiasis or acute cholecystitis. Dictated by Lawrence Meyers D.O. (General Farmworker) I, Dr. BINA PEREZ M.D. have personally reviewed and interpreted this examination/study. This report was electronically signed by BINA PEREZ M.D. on10/21/2021 11:38 AM . Amos Pabon MD ORDERABLES documented in this encounter Visit Diagnoses Diagnosis Cirrhosis of liver with ascites, unspecified hepatic cirrhosis type (HCC) documented in this encounter Care Teams Rental Representative Relationship Specialty Start Date End Date Major Kraft MD PCP - General 07/01/21 06/08/22 Eric Oconnell MD Hospitalist 10/10/21 documented as of this encounter
--- OUTSIDE RECORDS SUMMARY | 2024-10-19 20:14 | XMS_ITS | Encounter Summary ---
Author Organization [facility] Healthcare Address [address] [place] [id number] Care Team Providers Care Software Validation Engineer Name Role Phone Major Kraft MD Primary Care Provider [phone] Reason for Visit * Reason Comments Abdominal Pain Encounter Details Date Type Department Care Team (Late st Contact Info) Description 11/08/2021 1:42 PM B[facility]IAL [employer]ULT [employer]KER - 11/08/2021 3:21 PM [facility]IAL [facility] [facility] Emergency [address] [address] Shortness of breath (Primary Dx); COVID-19 Discharge Disposition: Left Against Medical Advice Social History Tobacco Use Types Packs/Day Years Used Date Smoking Tobacco: Never Assessed Sex and Gender Information Value Date Recorded Sex Assigned at Not on file Legal Sex Male 1:24 PM [employer]IAL [employer]ULT [employer] Gender Identity Not on file Sexual Orientation Not on file documented as of this encounter Last Filed Vital Signs Vital Sign Reading Time Taken Comments Blood Pressure 111/76 11/08/2021 1:45 PM [employer]IAL [employer]ER Pulse 74 11/08/2021 1:45 PM [employer]IAL [employer]ER Temperature 36.6 ??C (97.8 ??F) 11/08/2021 1:48 PM CS T Respiratory Rate 12 11/08/2021 1:45 PM [employer]IAL VAULT [employer]ER Oxygen Saturation 98% 11/08/2021 1:45 PM B[employer]IAL VAULT [employer]KER Inhaled Oxygen Concentration - - Weight 88.5 kg (195 lb) 11/08/2021 1:45 PM B[employer]IAL VAULT [employer]ER Height - - Body Mass Index - - documented in this encounter Discharge Disposition Disposition Code Departure Means Destination Left Against Medical Advice documented in this encounter ED Notes * Silke Davidson PA - 11/08/2021 1:52 PM CST HPI Chief Complaint Patient presents with ??? Abdominal Pain HPI Patient is a 36-year-old male history of cirrhosis, presents via EMS from [facility] with shortness of breath. Patient reports a 50 lb weight gain since the end of August. Reports shortness of breath with activity, denies chest pain. Generalized swelling in abdomen, bilateral lower extremities.He was scheduled for a paracentesis yesterday however they were unable to find a pocket of fluid, recommended CT of the abdomen. Patient also reports he has been he constantly eating and believes that may be the cause of his weight gain. He has recovered from COVID, vaccinated and booster. Followedby GI and liver specialist at [facility]. Scheduled to see them in 4 days. Patient History: There are no problems to display for this patient. No past medical history on file. No past surgical history on file. No family history on file. Social History Tobacco Use ??? Smoking status: Not on file ??? Smokeless tobacco: Not on file Substance Use Topics ??? Alcohol use: Not on file ??? Drug use: Not on file Social History Social History Narrative ??? Not on file Review of Systems Review of Systems Physical Exam ED Triage Vitals Temp Pulse Resp BP SpO2 11/08/21 1348 11/08/21 1345 11/08/21 1345 11/08/21 1345 11/08/21 1345 36.6 ??C (97.8 ??F) 74 12 111/76 98 % Temp src Heart Rate Source Patient Position BP Location FiO2 (%) 11/08/21 1348 -- -- -- -- Oral Physical Exam [facility] ED Course as of 11/09/21 0838 Time: 11/08 1418 Value: CBC with auto differential(!): WBC 6.5 Hgb 12.2(!) Hct 37.2(!) Plt 152 MPV 9.7 RBC 4.24(!) MCV 87.7 MCH 28.8 MCHC 32.8 RDW CV 19.1(!) RDW SD 61.9(!) NRBC abs 0.00 Comment: (Reviewed) By: Silke Davidson PA Time: 11/08 1418 Value: Protime-INR(!): PT 15.1(!) INR 1.2 Comment: (Reviewed) By: Silke Davidson PA Time: 11/08 1439 Value: Influenza A/B, RSV, and COVID-19 PCR Nasopharyngeal(!): COVID-19 RNA Positive(!) Influenza A RNA Negative Influenza B RNA Negative RSV RNA Negative First COVID-19 test? Unknown Employeed in healthcare? No Group care resident? Yes Hospitalized? Unknown Is patient in ICU? No Symptomatic as defined by CDC? Yes Comment: (Reviewed) By: Silke Davidson PA Time: 11/08 1440 Comment: CXR: IMPRESSION: Low lung volumes. No evidence of an acute cardiopulmonary abnormality. By: Silke Davidson PA Time: 11/084 Comment: Patient no longer wants to participate in this examiners care plan. Full discussion taken with patient. Patient is awake and alert with full decision making capacity. Potential risks and outcomes communicated to the patient. All reasonable alternative options have been discussed. All questions answered. Patient is advised to return immediately if they are in need of reevaluation. Patient was madeaware that this plan can result is serious missed diagnosis, wrong diagnosis, delay in care, complications, morbidity, . ?? I have informed the patient that their decision involves a risk of missed diagnosis, delays in care, serious complications or , from not completing an evaluation. The patient understands the discussion and amicably persists in the plan to leave. The patient has the right to refuse medical care. The patient has the right to self determination of plans. The patient has no signs of lacking mental capacity to make decisions about health care. The patient listened to and processed the information appropriately and all questions were answeredand the patient is welcomed to return or go to any ED immediately at any time after leaving here. By: Silke Davidson PA Final diagnoses: None Silke Davidson PA 11/09/21 0839 Cosigned by Mansoor Valdes MD at 11/09/2021 2:54 PM B[employer]IAL VAULT [employer]KER AL VAULT MAKER AL VAULT MAKER * Marisol Iglesias, ALFREDO - 11/08/2021 1:43 PM CST Arrives from [place] in [place], was sent out yesterday to have beely tapped , and they said they couldn't find a pocket. Pt sent to [facility] today per Dr Kraft request to have abd tapped. Pt states that he has gained 40-50lbs in the past 30 days but thanksgiving and deshawn just happened . Las time abd was drained was July AL VAULT MAKER documented in this encounter Plan of Treatment Scheduled Orders Name Type Priority Associated Diagnoses Orde r Schedule Urinalysis reflex to microscopic and culture Urine, clean voided Microbiology STAT STAT for 1 Occurrences starting 11/08/2021 until 11/08/2021 documented as of this encounter Procedures Procedure Name Priority Date/Time Associated Diagnosis Comments XR CHEST 1 VIEW ED Urgent/IP Urgent 11/08/2021 2:10 PM B[employer]IAL [employer]ER ECG 12-LEAD STAT 11/08/2021 1:58 PM B[employer]IAL VAULT MAKER INFLUENZA A/B, RSV, AND COVID-19 PCR Routine 11/08/2021 1:57 PM B[employer]IAL VAULT [employer]KER EGFR STAT 11/08/2021 1:57 PM B[employer]IAL VAULT [employer]KER DIFFERENTIAL AUTO STAT 11/08/2021 1:5 7 PM [employer]IAL [employer]ULT [employer]KER PRO B-TYPE NATRIURETIC PEPTIDE STAT 11/08/2021 1:57 PM B[employer]IAL VAULT [employer]KER CBC WITH AUTO DIFFERENTIAL STAT 11/08/2021 1:57 PM B[employer]IAL VAULT [employer]KER PROTIME-INR STAT 11/08/2021 1:57 PM B[employer]IAL VAULT [employer]KER COMPREHENSIVE METABOLIC PANEL STAT 11/08/2021 1:57 PM B[employer]IAL VAULT [employer]KER documented in this encounter Results * XR Chest 1 View (11/08/2021 2:10 PM B[employer]IAL VAULT MAKER) Anatomical Region Laterality Modality Body, Chest N/A Computed Radiogr aphy 11/08/2021 2:21 PM B[employer]IAL VAULT MAKER Narrative 11/08/2021 2:23 PM B[employer]IAL VAULT MAKER EXAM DESCRIPTION: ?? XR CHEST 1 VIEW REASON FOR STUDY: Generalized weakness. ??Weight gain of 40-50 pounds over the past 30 days. TECHNIQUE: ?? Frontal ??radiographic view of the chest acquired. COMPARISON: ?? None available. FINDINGS: LUNGS/PLEURA: ??The lung volumes are low. ??There is no evidence of airspace consolidation, pleural effusion, or pneumothorax. ?? HEART/MEDIASTINUM: The heart size is normal. The mediastinal and hilar contours are normal. HARDWARE/LINES/TUBES: None. BONES: There are no acute or aggressive appearing osseous abnormalities. IMPRESSION: Low lung volumes. ??No evidence of an acute cardiopulmonary abnormality. ?? THIS IS AN ELECTRONICALLY VERIFIED FINAL REPORT 11/08/2021 2:23 PM - Electronically signed by ??Howard SANDY D: ??11/08/2021 2:23 PM T: Report ID: [id number] Reading Location: ??[id number] Procedure Note Howard Rossi MD - 11/08/2021 EXAM DESCRIPTION: XR CHEST 1 VIEW REASON FOR STUDY: Generalized weakness. Weight gain of 40-50 pounds overthe past 30 days. TECHNIQUE: Frontal radiographic view of the chest acquired. COMPARISON: None available. FINDINGS: LUNGS/PLEURA: The lung volumes are low. There is no evidence ofairspace consolidation, pleural effusion, or pneumothorax. HEART/MEDIASTINUM: The heart size is normal. The mediastinal and hilar contours are normal. HARDWARE/LINES/TUBES: None. BONES: There are no acute or aggressive appearing osseous abnormalities. IMPRESSION: Low lung volumes. No evidence of an acute cardiopulmonary abnormality. THIS IS AN ELECTRONICALLY VERIFIED FINAL REPORT 11/08/2021 2:23 PM - Electronically signed by Howard SANDY T: Report ID: [id number] Reading Location: [place] [address] Silke HALL IMG XR PROCEDURES Final Resul t * ECG 12 lead (11/08/2021 1:58 PM BURIAL VAULT MAKER) [facility] Ventricular Rate EKG/Min 74 BPM [facility] Atrial Rate 74 BPM [facility] MS-Interval (MSEC) 132 ms [facility] QRS-Interval (MSEC) 92 ms [facility] QT-Interval (MSEC) 408 ms [facility] QTc 452 ms [facility] P Maple 21 degrees [facility] R Maple 5 degrees [facility] T Maple 40 degrees [facility] Diagnosis Normal sinus rhythm Minimal voltage criteria for LVH, may be normal variant Borderline ECG No previous ECGs available [facility] 11/08/2021 1:58 PM B[employer]IAL VAULT [employer]KER 11/08/2021 3:01 PM B[employer]IAL VAULT [employer]KER Silke HALL ECG ORDERABLES Final Result [facility] * eGFR (11/08/2021 1:57 PM BURIAL VAULT MAKER) eGFR 117 mL/min/1. 73 m2 [facility] Comment: Interpretive Data Reference Interval Normal ?>/= 90 mL/min/1.73m2 Mildly decreased* ? 60 - 89 mL/min/1.73m2 Mildly to moderately decreased ?45 - 59 mL/min/1.73m2 Moderately to severely decreased ??30 - 44 mL/min/1.73m2 Severely decreased ?15 - 29 mL/min/1.73m2 Kidney Failure ?< 15 ??mL/min/1.73m2 *Relative to young adult level Estimated glomerular filtration rate is determined by the 2020 CKD-EPI equation recommended by the National Kidney Foundation (A Unifying Approach to GFR Estimation: Recommendations of the NKF-ASK Task Force on Reassessing the Inclusion of Race in Diagnosing Kidney Disease, JASN 2020). The CKD-EPI equation should not be used for patients with unstable renal function and has not been validated in children and those over 70. Current interpretive data was last reviewed 2021. Blood 11/08/2021 1:57 PM B[employer]IAL VAULT [employer]KER 11/08/2021 1:58 PM BURIAL VAULT MAKER us Silke HALL LAB BLOOD ORDERABLES Final Re sult [facility] [address] [facility] Department [place] [address] * (ABNORMAL) Differential, auto (11/08/2021 1:57 PM BURIAL VAULT MAKER) Neutrophil abs 3.1 1.7 - 6.5 K/cumm [facility] Imm gran abs 0.0 0.0 - 0.1 K/cumm [facility] Lymphocyte abs 1.7 0.8 - 3.3 K/cumm [facility] Monocyte abs 1.3(H) 0.2 - 0.8 K/cumm [facility] Eosinophil abs 0.3 0.0 - 0.5 K/cumm [facility] Basophil abs 0.1 0.0 - 0.1 K/cumm [facility] Neutrophil pct 47.6 % [facility] Comment: Interpretive Data Percent cell count reference ranges are not reported, since discordance with absolute values may lead to misinterpretation of CBC data. Current Interpretive Data was last revised on 2018. Imm gran pct 0.5 % [facility] Comment: Interpretive Data Percent cell count reference ranges are not reported, since discordance with absolute values may lead to misinterpretation of CBC data. Current Interpretive Data was last revised on 2018. Lymphocyte pct 26.9 % [facility] Comment: Interpretive Data Percent cell count reference ranges are not reported, since discordance with absolute values may lead to misinterpretation of CBC data. Current Interpretive Data was last revised on 2018. Monocyte pct 19.7 % [facility] Comment: Interpretive Data Percent cell count reference ranges are not reported, since discordance with absolute values may lead to misinterpretation of CBC data. Current Interpretive Data was last revised on 2018. Eosinophil pct 4.2 % [facility] Comment: Interpretive Data Percent cell count reference ranges are not reported, since discordance with absolute values may lead to misinterpretation of CBC data. Current Interpretive Data was last revised on 2018. Basophil pct 1.1 % [facility] Comment: Interpretive Data Percent cell count reference ranges are not reported, since discordance with absolute values may lead to misinterpretation of CBC data. Current Interpretive Data was last revised on 2018. Blood 11/08/2021 1:57 PM B[employer]IAL VAULT [employer]KER 11/08/2021 1:58 PM B[employer]IAL VAULT MAKER us Silke HALL LAB BLOOD ORDERABLES Final Re sult [facility]AN [address] [facility] Department [place] [address] * (ABNORMAL) Influenza A/B, RSV, and COVID-19 PCR Nasopharyngeal (11/08/2021 1:57 PM BURIAL VAULT MAKER) Pathologist [facility] COVID-19 RNA Positive(A) Negative [facility] Influenza A RNA Negative Negative [facility] Influenza B RNA Negative Negative [facility] RSV RNA Negative Negative [facility] Comment: Interpretive data: This test is performed using the [employer] Xpress CoV-2/Flu/RSV plus assay. This is a multiplex, real-time reverse transcriptase PCR assay intended for the qualitative detection of nucleic acid from SARS-CoV-2, influenza A, influenza B, and respiratory syncytial virus. This assay has been reviewed by the FDA for Emergency Use Authorization (EUA). The performance characteristics have been verified by the performing laboratory. Results must be considered in the clinical context, and a negative result does not rule out infection. Interpretive Data last revised 2021. First COVID-19 test? Unknown [facility] Employeed in healthcare? No [facility] Group care resident? Yes [facility] Hospitalized? Unknown [facility] Is patient in ICU? No [facility] Symptomatic as defined by CDC? Yes [facility] Nasopharyngeal 11/08/2021 1: 57 PM B[employer]IAL VAULT MAKER 11/08/2021 1:58 PM B[employer]IAL VAULT MAKER Narrative [facility] - 11/08/2021 2:38 PM B[employer]IAL VAULT MAKER Date of Symptom Onset->11/08/21 Reason for testing?->Symptomatic Known exposure to confirmed or suspected COVID-19 case?->No Silke HALL LAB MICROBIOLOGY - GENERAL OR DERABLES Final Result [facility] [address] [facility] Department [place] [address] * (ABNORMAL) Protime-INR (11/08/2021 1:57 PM BURIAL VAULT MAKER) [facility] PT 15.1(H) 12.0 - 14.6 sec [facility] Comment:Ref Range High INR 1.2 [facility] Comment: Ref Range High Interpretive data Oral anticoagulant therapeutic ranges: Venous thromboembolism prophylaxis or treatment: 2.0-3.0 CARDIOLOGY Standard range: 2.0-3.0 High-intensity range: 2.5-3.5 Refer to indication-specific guidelines for appropriate target ranges for prosthetic heart valve replacement. Current interpretive data was last revised on 2019. Blood 11/08/2021 1:57 PM B[employer]IAL VAULT MAKER 11/08/2021 1:58 PM BURIAL VAULT MAKER us Silke HALL LAB BLOOD ORDERABLES Final Re sult [facility] [address] [facility] Department [place] [address] * Pro B-type natriuretic peptide (11/08/2021 1:57 PM BURIAL VAULT MAKER) NT-proBNP 11 <=300 pg/mL [facility] Comment: Interpretive Comments: A. Dyspnea in Acute Care Setting All Ages: ?< 300 pg/ml, acute heart failure unlikely. < 50 yrs: ?300 - 450 pg/ml, further investigation warranted. ? > 450 pg/ml, acute heart failure likely. 50 - 74 yrs: ? 300 - 900 pg/ml, further investigation warranted. ? > 900 pg/ml, acute heart failure likely . > or = 75 yrs: ? 450 - 1800 pg/ml, further investigation warranted. ? > 1800 pg/ml, acute heart failure likely. B. Non-acute Setting < 75 yrs ? < 125 pg/ml, rules out heart failure. ? > or = 125 pg/ml, further investigation warranted. > or = 75 yrs ?< 450 pg/ml, rules out heart failure. ? > or = 450 pg/ml, further investigation warranted. - Knowledge of each individual patient's NT-proBNP range may be more useful than using similar cut-points for every patient. Please note that marked elevations in NT-proBNP levels may be observed in state other than Left Ventricular Congestive Failure, including: acute coronary syndromes, right heart strain/failure (including pulmonary embolism and cor pulmonale), critical illness, renal failure, as well as advanced age. - References: 1. Leroy TEMPLE et.al. Eur Heart J. 2006:27:330-337. 2. Delores VILLEGAS, Van RAMÍREZ. J. AM Denia Cardiol: Cardiovasc Imag. 2009;2: 216- 225. Interpretive Data Last Revised Date: 2018. Blood 11/08/2021 1:57 PM B[employer]IAL VAULT MAKER 11/08/2021 1:58 PM BURIAL VAULT MAKER us Silke HALL LAB BLOOD ORDERABLES Final Re sult [facility] [address] [facility] Department [place] [address] * (ABNORMAL) Comprehensive metabolic panel (11/08/2021 1:57 PM BURIAL VAULT MAKER) Sodium 131(L) 135 - 145 mmol/L [facility] Potassium, pl 3.7 3.3 - 4.9 mmol/L [facility] Chloride 96(L) 97 - 110 mmol/L [facility] CO2 25 22 - 32 mmol/L [facility] Anion gap 10 2 - 15 mmol/L [facility] BUN 18 8 - 25 mg/dL [facility] Creatinine 0.80 0.80 - 1.30 mg/dL [facility] Glucose 84 70 - 199 mg/dL [facility] Comment: Interpretive Data Fasting glucose >/= 126 mg/dl is diagnostic for diabetes. ?? Fasting is defined as no caloric intake for at least 8 hours. Fasting glucose between 100 mg/dl to 125 mg/dl is diagnostic of prediabetes. In a patient with classic symptoms of hyperglycemia or hyperglycemic crisis, a random glucose >/= 200 mg/dl is diagnostic for diabetes. In the absence of unequivocal hyperglycemia, results should be confirmed by repeat testing. The classification and Diagnosis of Diabetes Diabetes Care 2017;40 (Suppl. 1):S11. Current interpretive data was last revised 2017. Calcium 8.9 8.5 - 10.3 mg/dL [facility] Bilirubin, total 0.4 0.1 - 1.2 mg/dL [facility] Protein, pl 8.2 6.5 - 8.5 g/dL [facility] Albumin 3.9 3.5 - 5.0 g/dL [facility] Alk phos 117 40 - 130 Units/L [facility] ALT 21 7 - 55 Units/L [facility] AST 27 10 - 50 Units/L [facility] Blood 11/08/2021 1:57 PM B[employer]IAL VAULT [employer]KER 11/08/2021 1:58 PM BURIAL VAULT MAKER us Silke HALL LAB BLOOD ORDERABLES Final Re sult [facility] [address] [facility] Department [place] [address] * (ABNORMAL) CBC with auto differential (11/08/2021 1:57 PM BURIAL VAULT MAKER) WBC 6.5 3.8 - 9.9 K/cumm [facility] Hgb 12.2(L) 13.0 - 17.5 g/dL [facility] Hct 37.2(L) 38.9 - 50.3 % [facility] Plt 152 150 - 400 K/cumm [facility] MPV 9.7 9.1 - 12.3 fL [facility] RBC 4.24(L) 4.30 - 5.80 M/cumm [facility] MCV 87.7 81.3 - 96.4 fL [facility] MCH 28.8 27.1 - 33.3 pg [facility] MCHC 32.8 32.3 - 35.7 g/dL [facility] RDW CV 19.1(H) 11.1 - 14.9 % [facility] RDW SD 61.9(H) 35.7 - 48.1 fL [facility] NRBC abs 0.00 0.00 - 0.01 K/cumm [facility] Blood 11/08/2021 1:57 PM B[employer]KER 11/08/2021 1:58 PM B[employer]IAL VAULT MAKER us Silke HALL LAB BLOOD ORDERABLES Final Re sult [facility] [address] [facility] Department [place] [address] documented in this encounter Visit Diagnoses Diagnosis Shortness of breath- Primary COVID-19 documented in this encounter Orders IV Count Last Ordered Date First Orde red Date SALINE LOCK IV 1 11/08/2021 documented in this encounter Additional Health Concerns Infection Onset Date Last Indicated Resolved Time COVID: Suspected 11/08/2021 11/08/2021 11/08/2021 2:38 PM B[employer]IAL VAULT [employer]KER COVID19 11/08/2021 11/08/2021 11/18/2021 3:05 AM B[employer]IAL VAULT MAKER documented as of this encounter Care Teams Software Validation Engineer Relationship Specialty Start Date End Date Major Kraft MD PCP - General Internal Medicine 11/07/21 documented as of this encounter
--- OUTSIDE RECORDS SUMMARY | 2024-10-19 20:14 | XMS_ITS | Encounter Summary ---
Author Organization [facility] Healthcare Address [address] [place], [place] [id number] Care Team Providers Care Human Factors Specialist Name Role Phone Major Kraft MD Primary Care Provider [phone] Reason for Visit * Diagnostic Imaging (Routine) - Closed Specialty Diagnoses / Procedures Referred By Rod t Referred To Contact Diagnoses Ascites Procedures US Ascites US Guided Paracentesis Major Kraft MD Phone: tel: fax: [address] [phone] Referral ID Status Reason Start Date Expiration Date Visits Re quested Visits Authorized [id number] Closed 11/06/2021 12/06/2022 1 1 Encounter Details Date Type Department Care Team (Latest Contact Info) Description 11/07/2021 2:00 PM RECESSING MACHINE OPERATOR - 11/07/2021 11:59 PM RECESSING MACHINE OPERATOR Hospital Encounter [address] [address] Ascites Discharge Disposition: Discharge to home or self care Social History Tobacco Use Types Packs/Day Years Used Date Smoking Tobacco: Never Assessed Sex and Gender Information Value Date Recorded Sex Assigned at Not on file Legal Sex Male 1:24 PM RECESSING MACHINE OPERATOR Gender Identity Not on file Sexual Orientation Not on file documented as of this encounter Discharge Disposition Disposition Code Departure Means Destination Discharge to home or self care documented in this encounter Plan of Treatment Not on file documented as of this encounter Procedures Procedure Name Priority Date/Time Associated Diagnosis Comments US ASCITES Schedule Routine, Read Routine (OP Routine) 11/07/2021 3:10 PM RECESSING MACHINE OPERATOR Ascites documented in this encounter Results * US Ascites (11/07/2021 3:10 PM RECESSING MACHINE OPERATOR) Anatomical Region Laterality Modality Abdomen and Pelvis N/A Ultrasound, C omputed Radiography 11/07/2021 3:24 PM RECESSING MACHINE OPERATOR Narrative 11/07/2021 3:27 PM RECESSING MACHINE OPERATOR EXAM DESCRIPTION: ?? US ASCITES REASON FOR STUDY: ?? ASCITES. ??Paracentesis requested. TECHNIQUE: Limited Static and real time imaging performed of the 4 abdominal quadrants and the midline. ??The patient was scanned by the dry end operator and by Dr. Parish, as he had presented for paracentesis. COMPARISON: ?? None available FINDINGS: ASCITES: ?? None identified. OTHER: ?? Mild subcutaneous edema. ??Heterogeneous material in the abdomen, some of which is peristalsing bowel loops. ??There may be some edematous omental and mesenteric fat without drake fluid. IMPRESSION: ??No evidence for ascites. ?? Further assessment of abdominal prominence could be obtained with CT as clinically indicated. THIS IS AN ELECTRONICALLY VERIFIED FINAL REPORT 11/07/2021 3:27 PM - Electronically signed by ??Cameron Parish M.D. D: ??11/07/2021 3:27 PM T: Report ID: [id number] Reading Location: ??[id number] Procedure Note Cameron Parish MD - 11/07/2021 EXAM DESCRIPTION: US ASCITES REASON FOR STUDY: ASCITES. Paracentesis requested. TECHNIQUE: Limited Static and real time imaging performed of the 4abdominal quadrants and the midline. The patient was scanned by the dry end operator andby Dr. Parish, as he had presented for paracentesis. COMPARISON: None available FINDINGS: ASCITES: None identified. OTHER: Mild subcutaneous edema. Heterogeneous material in the abdomen,some of which is peristalsing bowel loops. There may be some edematous [place] mesenteric fat without drake fluid. IMPRESSION: No evidence for ascites. Further assessment of abdominal prominencecould be obtained with CT as clinically indicated. THIS IS AN ELECTRONICALLY VERIFIED FINAL REPORT 11/07/2021 3:27 PM - Electronically signed by Cameronbaylee Parish M.D. T: Report ID: [id number] Reading Location: [id number] us Major Kraft MD IMG US PROCEDURES Final Res ult documented in this encounter Visit Diagnoses Diagnosis Ascites documented in this encounter Care Teams Human Factors Specialist Relationship Specialty Start Date End Date Major Kraft MD PCP - General Internal Medicine 11/07/21 documented as of this encounter
--- OUTSIDE RECORDS SUMMARY | 2024-10-19 20:14 | XMS_ITS | Encounter Summary ---
Author Organization [facility] Address [address] [place] [place] [address] Care Team Providers Care Rug Weaver Name Role Phone Major Kraft MD Primary Care Provider + [phone] Reason for Referral * Radiology Services (Routine) - Closed Specialty Diagnoses / Procedures Referred By Contac t Referred To Contact Diagnoses Cirrhosis of liver with ascites, unspecified hepatic cirrhosis type (HCC) Procedures US ABDOMEN LIMITED Amos Pabon MD [address] [place] [address] [place] [address] [facility] [address] [place] [address] Referral ID Status Reason Start Date Expiration Date Visits Re quested Visits Authorized [id number] Closed 10/01/2021 10/01/2022 1 1 NT COORDINATOR Reason for Visit * Reason Comments Cirrhosis Encounter Details Date Type Department Care Team (Late st Contact Info) Description 10/01/2021 10:00 AM DOCENT COORDINATOR Office Visit [facility] - [address] [facility], [place] [phone] Major Kraft MD [address] [place] [phone] Cirrhosis of liver with ascites, unspecified hepatic cirrhosis type (HCC) (Primary Dx); Alcoholic cirrhosis of liver with ascites (HCC); Alcohol use disorder, mild, abuse; Anemia, unspecified type; Liver failure without hepatic coma, unspecified chronicity (HCC) Social History Tobacco Use Types Packs/Day [...] COVID-19? No / Unsure 10/01/2021 10:22 AM DOCENT COORDINATOR documented as of this encounter Last Filed Vital Signs Vital Sign Reading Time Taken Comments Blood Pressure 119/76 10/01/2021 9:37 AM DOCENT COORDINATOR Pulse 92 10/01/2021 9:37 AM DOCENT COORDINATOR Temperature - - Respiratory Rate 20 10/01/2021 9:37 AM DOCENT COORDINATOR Oxygen Saturation 100% 10/01/2021 9:37 AM DOCENT COORDINATOR Inhaled Oxygen Concentration - - Weight 85.3 kg (188 lb) 10/01/2021 9:37 AM DOCENT COORDINATOR Height 170.2 cm (5' 7 ) 10/01/2021 9:37 AM DOCENT COORDINATOR Body Mass Index 29.44 10/01/2021 9:37 AM DOCENT COORDINATOR documented in this encounter Patient Instructions * Patient Instructions* Sheridan Ng RN - 10/01/2021 12:06 PM DOCENT COORDINATOR No fluid restriction is needed. Will check labs and update further instructions. NT COORDINATOR documented in this encounter Progress Notes * Amos Pabon MD - 10/01/2021 11:08 AM CST Images from the original note were not included. Hepatology clinic visit: Reason for clinic visit: Decomp cirrhosis Referring physician: Major Kraft MD Subjective: Lukas Diaz, who is 36 year old male years old was seen in clinic today for initial evaluation of decompensated liver cirrhosis, possibly related to alcohol associated liver disease. He was drinking heavily since age 19. He was drinking till April 2021 when he was admitted with ascites, possibly GI bleeding. He had a paracentesis and was subsequently put on diuretics. He had an upper endoscopy and recalls having band ligation. He had a fall and sustained leg injury for which he was discharged to care home facility. Prior to that he was living by himself renting an apartment. Only father is his family close by. 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 He never drove a car or license. Uses public transport. Was drinking alcohol out of habit. He is looking for disability. His major complaint is intermittent confusion, leg edema and distention. He is taking his medications regularly while at the nursing facility. He is watching salt intake. No relapse or mentioned counseling. Today, pt reported mild confusion and change in mental status, no hematemesis or hematochezia. Review of Systems - Negative except abdominal distention and fatigue. Complete 10 point ROS was reviewed with the patient and was otherwise negative. Assessment: #1 Decompensated alcohol associated liver cirrhosis, meld score low and recent alcohol use #2 Alcohol use disorder, prior known liver disease and alcohol use till April 2021 #3 Ascites/leg edema #4 Hepatic encephalopathy, mild symptoms #5 Recent fall and leg pain #6 Episodes of possibly GI bleeding from varices s/p band ligation #7 Anemia Plan: Obtain his medication list, update his labs and chronic liver disease work-up. Adjust diuretics according to renal function and electrolyte. Continue to follow-up with local GI for follow-up upper endoscopies. Will monitor meld score, if no improvement and with ongoing sobriety will need to discuss liver transplantation if meld score is elevated. Strongly encouraged him to staying abstinent from alcohol use, improve nutrition. His social set up is major concern regarding his transplant candidacy. Currently is living in a nursing facility, he had to let his apartment go. Only father lives locally. He does not drive, never kept a car. The hope is that with continued abstinence, improved nutrition and physical activity his condition will improve. Orders Placed This Encounter ??? US ABDOMEN LIMITED ??? ALPHA FETOPROTEIN BLOOD TUMOR MARKER ??? CBC W/O DIFFERENTIAL ??? BASIC METABOLIC PANEL (CALCIUM TOTAL) ??? HEPATIC FUNCTION PANEL ??? PT-INR [facility] ??? HEPATITIS A ANTIBODY ??? HEPATITIS B CORE ANTIBODY ??? HEPATITIS B SURFACE ANTIBODY ??? HEPATITIS B SURFACE ANTIGEN W RFLX CONFIRMATION ??? HEPATITIS C ANTIBODY ??? [id number] BLOOD ??? TIFFANY BLOOD SCREEN W/REFLEX TITER ??? FERRITIN ??? IGG BLOOD ??? IRON BLOOD Education regarding dietary sodium restriction (2000 mg per day) was given. Patient was advised to check sodium content is each food item. Avoid sodas, pre- cooked or packaged meals, or preserved fooditems. Fluid restriction is not necessary unless serum sodium is less than 125 mmol/L. Patient was advised to weigh self twice a week and keep a record. Regular lab check of serum, urine electrolytes (Na) and renal function will be needed to monitor toxicity. Patient was advised to using NSAIDs, ACEi or ARBs, unless confirmed by PCP who will monitor renal function. Benefit and risk of low dose ASA should be discussed. : Patient will need to continue serial therapeutic paracenteses for refractory ascites. The routine prophylactic use of fresh frozen plasma or platelets before paracentesis is not recommended. Obtain ascitic fluid cell count and differential, ascitic fluid total protein, serum and ascites albumin. I would recommend at least 50 gm 25% albumin infusion after each large volume paracentesis. I will monitor the patient to see if with diet and medical management the interval between paracentesis can be increased. Return to clinic in 4 months. Follow-up with primary care physician for age-appropriate screening and vaccination. Objective: Medications: No current outpatient medications on file as of 10/01/2021. Labs: Recent Labs Component Name 05/14/21 0000 WBC 6.5 HGB 10.4* HCT 31.4* Past Medical History: Active Ambulatory Problems Diagnosis Date Noted ??? Hepatic cirrhosis 10/01/2021 Resolved Ambulatory Problems Diagnosis Date Noted ??? No Resolved Ambulatory Problems Past Medical History: Diagnosis Date ??? Hypertension The patient's past medical, surgical, family and social history have been reviewed, as outlined in the electronic medical record. Past surgical history: No past surgical history on file. Social history: Alcohol: was drinking fairly regularly. Alcohol level positive in 04/2021 prior to his recent decompensation Drugs: marijuana use Smoking: tobacco use Working on disability Lives at a detention/rehab place since the last hospitalization Social History Social History Narrative Not on file Social History Socioeconomic History ??? Marital status: Single Spouse name: Not on file ??? Number of children: Not on file ??? Years of education: Not on file ??? Highest education level: Not on file Occupational History ??? Not on file Tobacco Use ??? Smoking status: Current Every Day Smoker Packs/day: 0.25 ??? Smokeless tobacco: Never Used ??? Tobacco comment: less than 5 cigarettes a day Substance and Sexual Activity ??? Alcohol use: Not Currently ??? Drug use: Not Currently ??? Sexual activity: Not on file Other Topics Concern ??? Not on file Social History Narrative ??? Not on file Social Determinants of Health Financial Resource Strain: Not on file Food Insecurity: Not on file Transportation Needs: Not on file Physical Activity: Not on file Stress: Not on file Social Connections: Not on file Intimate Partner Violence: Not on file Housing Stability: Not on file Social History Substance and Sexual Activity Alcohol Use Not Currently reports previous alcohol use. Allergies: No Known Allergies Family history: No FHx of liver disease or liver cancer Physical exam: BP 119/76 Pulse 92 Resp 20 Ht 1.702 m (5' 7 ) Wt 85.3 kg (188 lb) SpO2 100% BMI 29.44 kg/m2 General: well appearing, non-toxic, alert, in no acute distress Head: atraumatic Eyes: Sclera/Conjunctiva: are noted to be clear bilaterally. Oropharynx: mucous membranes are moist Neck: normal ROM Cardiovascular: normal S1 and S2 Chest: good air movement Abdomen: soft, non-tender and distended Musculoskeletal: mild edema Skin: no rashes Neuro: alert, oriented, normal speech, no focal findings or movement disorder noted Radiology: I personally reviewed the old records obtained from other facilities/departments and included/summarized the data in this note. Additional prior procedure were requested to obtain from other health care providers. I spent 47 minutes with the patient, greater than 50% of the time was spent discussing the diagnosis of cirrhosis, counseling the pt about alcohol abstinence, overall prognosis, the management plans diet, imaging including risks and benefits of options. Care takerwas also involved in the discussion. Amos Pabon MD spa associate Gastroenterology and Hepatology Abdominal Organ Transplatation [facility] October 01, 2021 NT COORDINATOR documented in this encounter Plan of Treatment Upcoming Encounters Date Type Department Care Team (Late st Contact Info) Description 11/29/2024 8:30 AM DOCENT COORDINATOR Office Visit [facility] - Orthopedic Surgery [address] [place] [place] [address] Toño Cabrera MD [address] [facility] [address] [place] [address] 01/08/2025 8:00 AM CDT Appointment [facility] US [address] [place] [phone] 01/08/2025 9:00 AM CDT Office Visit [facility] - GI [address] [facility] [place] [phone] Amos Pabon MD [address] [place] [address] [place] [address] documented as of this encounter Goals Goal [...] * US ABDOMEN LIMITED (10/21/2021 10:20 AM DOCENT COORDINATOR) Anatomical Region Laterality Modality Abdomen Ultrasound 10/21/2021 10:4 4 AM DOCENT COORDINATOR Impressions 10/21/2021 11:38 AM DOCENT COORDINATOR IMPRESSION: 1.Hepatic cirrhosis with sequela of portal hypertension (recanalization of the umbilical vein) without discrete hepatic lesion. 2.Splenomegaly. 3.No evidence of cholelithiasis or acute cholecystitis. Dictated by Lawrence Meyers D.O. (Emotionally Impaired Teacher) I, Dr. BINA PEREZ M.D. have personally reviewed and interpreted this examination/study. This report was electronically signed by BINA PEREZ M.D. ??on 10/21/2021 11:38 AM . Narrative 10/21/2021 11:38 AM DOCENT COORDINATOR EXAMINATION: Limited abdominal sonogram HISTORY: K74.60: Cirrhosis [...] acute cholecystitis. Dictated by Lawrence Meyers D.O. (Emotionally Impaired Teacher) I, Dr. BINA PEREZ M.D. have personally reviewed and interpreted this examination/study. This report was electronically signed by BINA PEREZ M.D. on10/21/2021 11:38 AM . Amos Pabon MD ORDERABLES * (ABNORMAL) IRON BLOOD (10/01/2021 11:38 AM DOCENT COORDINATOR) Iron 17(L) 50 - 175 ug/dL 10/01/2021 12:55 PM DOCENT COORDINATOR [facility] Blood BLOOD SPECIMEN / Unknown Lab Venipuncture / Unknown 10/01/2021 11:38 AM DOCENT COORDINATOR 10/01/2021 11:46 AM DOCENT COORDINATOR Amos Pabon MD LAB - CHEMISTRY KURT ZARAGOZA Performing Organization Address City/[facility]/ZIP Co de Phone Number [address] [address], [facility] [phone] * (ABNORMAL) IGG BLOOD (10/01/2021 11:38 AM DOCENT COORDINATOR) IgG 2,513(H) 767-1,590 mg/dL 10/01/2021 12:55 PM DOCENT COORDINATOR [facility] Blood BLOOD SPECIMEN / Unknown Lab Venipuncture / Unknown 10/01/2021 11:38 AM DOCENT COORDINATOR 10/01/2021 11:46 AM DOCENT COORDINATOR Amos Pabon MD LAB - CHEMISTRY ORDSukhjinder ZARAGOZA [address] [address], [facility] [phone] * (ABNORMAL) FERRITIN (10/01/2021 11:38 AM DOCENT COORDINATOR) Ferritin 19(L) 22 - 275 ng/mL 10/01/2021 1:14 PM DOCENT COORDINATOR [facility] Blood BLOOD SPECIMEN / Unknown Lab Venipuncture / Unknown 10/01/2021 11:38 AM DOCENT COORDINATOR 10/01/2021 11:46 AM DOCENT COORDINATOR Amos Pabon MD LAB - CHEMISTRY KURT ZARAGOZA [place] [address] [place] [phone], [facility] [phone] * TIFFANY BLOOD SCREEN W/REFLEX TITER (10/01/2021 11:38 AM DOCENT COORDINATOR) TIFFANY IgG None Detected None Detected 10/04/2021 12:34 AM DOCENT COORDINATOR [facility] Comment: If suspicion of connective tissue disease is strong and TIFFANY EIA is negative, consider testing for TIFFANY by IFA ([id number]). INTERPRETIVE INFORMATION: Anti-Nuclear Antibodies (TIFFANY), IgG by SAVANNAH Antinuclear Antibodies (TIFFANY), IgG by SAVANNAH: TIFFANY specimens are screened using enzyme-linked immunosorbent assay (SAVANNAH) methodology. All SAVANNAH results reported as Detected are further tested by indirect fluorescent assay (IFA) using HEp-2 substrate with an IgG-specific conjugate. The TIFFANY SAVANNAH screen is designed to detect antibodies against dsDNA, histones, SS-A (Ro), SS-B (La), Clayton, Clayton/NEUROSCIENCE SPECIALIST, Scl-70, Nuris-1, centromeric proteins, other antigens extracted from the HEp-2 cell nucleus. TIFFANY SAVANNAH assays have been reported to have lower sensitivities than TIFFANY IFA for systemic autoimmune rheumatic diseases (SARD). Negative results do not necessarily rule out SARD. Performed By: [employer] [address] [place] [address] Streaming Media Specialist: Ivanna Ballard MD Blood BLOOD SPECIMEN / Unknown Lab Venipuncture / Unknown 10/01/2021 11:38 AM DOCENT COORDINATOR 10/01/2021 11:45 AM DOCENT COORDINATOR Amos Pabon MD LAB - CHEMISTRY KURT ZARAGOZA [facility]) [address] * [id number] BLOOD (10/01/2021 11:38 AM DOCENT COORDINATOR) Lrpbw-3-Pzcypn ypsin 159 90 - 200 mg/dL 10/01/2021 12:55 PM DOCENT COORDINATOR [facility] Blood BLOOD SPECIMEN / Unknown Lab Venipuncture / Unknown 10/01/2021 11:38 AM DOCENT COORDINATOR 10/01/2021 11:46 AM DOCENT COORDINATOR Amos Pabon MD LAB - CHEMISTRY KURT ZARAGOZA [address] [address], [place] [phone] * HEPATITIS C ANTIBODY (10/01/2021 11:38 AM DOCENT COORDINATOR) Hepatitis C Antibody Non-react young Non-reac tive 10/01/2021 1:14 PM DOCENT COORDINATOR [facility] Comment:Hepatitis C Antibody screen indicates no serologic evidence of past or current infection with Hepatitis C Virus. Patients with unexplained liver disease who are immunocompromised or suspected of having acute Hepatitis C infection may benefit from Nucleic Acid Test (MARIBELL) for Hepatitis C Viral RNA to confirm Hepatitis C status. Blood BLOOD SPECIMEN / Unknown Lab Venipuncture / Unknown 10/01/2021 11:38 AM DOCENT COORDINATOR 10/01/2021 11:46 AM DOCENT COORDINATOR Amos Pabon MD LAB - CHEMISTRY KURT ZARAGOZA Performing Organization Address [facility]/ZIP Co de Phone Number [address] [address], [place] [phone] * HEPATITIS B SURFACE ANTIGEN W RFLX CONFIRMATION (10/01/2021 11:38 AM DOCENT COORDINATOR) Hepatitis B Virus Surface Antigen Non-reacti ve Non-reacti ve 10/01/2021 1:14 PM DOCENT COORDINATOR [facility] Blood BLOOD SPECIMEN / Unknown Lab Venipuncture / Unknown 10/01/2021 11:38 AM DOCENT COORDINATOR 10/01/2021 11:46 AM DOCENT COORDINATOR Amos Pabon MD LAB - CHEMISTRY KURT ZARAGOZA Performing Organization Address City/[facility]/ZIP Co de Phone Number [address] [address], [place] [phone] * (ABNORMAL) HEPATITIS B SURFACE ANTIBODY (10/01/2021 11:38 AM DOCENT COORDINATOR) Hepatitis B Virus Surface Antibody Reactive( A) Non-react young 10/01/2021 1:14 PM [facility] Comment: > 12 mIU/mL Hepatitis B surface Antibody (HBsAb). Reactive for HBsAb - individual is considered immune to Hepatitis B Virus infection. Hepatitis B Surface Antibody Quantitative 50.9(H) <8.0 mIU/mL 10/01/2021 1:14 PM [facility] Comment: Hepatitis B Surface Antibody Numeric Result Interpretation: ? Nonreactive: ?<8.0 mIU/mL ? Indeterminate: ??8.0 - 12.0 mIU/mL ? Reactive: ?>12.0 mIU/mL ? Blood BLOOD SPECIMEN / Unknown Lab Venipuncture / Unknown 10/01/2021 11:38 AM DOCENT COORDINATOR 10/01/2021 11:46 AM DOCENT COORDINATOR Amos Pabon MD LAB - CHEMISTRY KURT ZARAGOZA Performing Organization Address [facility] Co de Phone Number [address] [address], [facility] [phone] * HEPATITIS B CORE ANTIBODY (10/01/2021 11:38 AM DOCENT COORDINATOR) HBc Antibody Total Non-reacti ve Non-reacti ve 10/01/2021 1:14 PM DOCENT COORDINATOR [facility] Blood BLOOD SPECIMEN / Unknown Lab Venipuncture / Unknown 10/01/2021 11:38 AM DOCENT COORDINATOR 10/01/2021 11:46 AM DOCENT COORDINATOR Amos Pabon MD LAB - CHEMISTRY KURT ZARAGOZA Performing Organization Address City/[facility]/ZIP Co de Phone Number [address] [address], [place] [phone] * (ABNORMAL) HEPATITIS A ANTIBODY (10/01/2021 11:38 AM DOCENT COORDINATOR) [facility] Hepatitis A Virus Antibody Total Positive( A) Negative 10/03/2021 5:38 PM DOCENT COORDINATOR [facility] Comment: The positive anti-HAV is consistent with recent or remote Hepatitis A infection or antibody response to HAV vaccination. False positive anti-HAV can occur. Performed by [facility] [employer], [address] [place] [address] www.[email or web address], Ivanna Ballard MD, Lab. Director Blood BLOOD SPECIMEN / Unknown Lab Venipuncture / Unknown 10/01/2021 11:38 AM DOCENT COORDINATOR 10/01/2021 11:45 AM DOCENT COORDINATOR Amos Pabon MD LAB - CHEMISTRY ORDE RABLES Performing Organization Address [facility] Co de Phone Number [facility]) [address] * (ABNORMAL) PT-INR [facility] (10/01/2021 11:38 AM DOCENT COORDINATOR) [facility] PT 15.5(H) 12.1 - 14.8 Seconds 10/01/2021 12:07 PM DOCENT COORDINATOR [facility] INR 1.2 See Comment 10/01/2021 12:07 PM DOCENT COORDINATOR [facility] Comment:The suggested therap eutic range for standard coumadin (warfarin) therapy is an INR of 2.0-3.0. For high-risk patients (Mechanical Mitral Valve Prosthesis, etc.), the suggested prophylactic therapeutic range is an INR of 2.5-3.5. Blood BLOOD SPECIMEN / Unknown Lab Venipuncture / Unknown 10/01/2021 11:38 AM DOCENT COORDINATOR 10/01/2021 11:46 AM DOCENT COORDINATOR Amos Pabon MD LAB - COAGULATION OR DERABLES [facility] [address] [place] [address], [place] [phone] * (ABNORMAL) HEPATIC FUNCTION PANEL (10/01/2021 11:38 AM DOCENT COORDINATOR) [facility] Protein Total 8.6(H) 6.0 - 8.3 g/dL 12:16 PM [facility] Albumin 3.3(L) 3.4 - 5.0 g/dL 10/01/2021 12:16 PM [facility] Bilirubin Total 0.6 0.2 - 1.2 mg/dL 05/2021 12:16 PM [facility] Bilirubin Conjugated 0.2 0.1 - 0.5 mg/dL 10/01/2021 12:16 PM [facility] Bilirubin Unconjugated 0.4 Unconjugated Bilirubin is a calculated value: Reference ranges have not been established. mg/dL 10/01/2021 12:16 PM [facility] Alkaline Phosphatase 134 40 - 150 U/L 10/01/2021 12:16 PM [facility] ALT 24 5 - 55 U/L 10/01/2021 12:16 PM [facility] AST 34 5 - 34 U/L 10/01/2021 12:16 PM [facility] Albumin/Globulin Ratio 0.6(L) 1.1 - 2.3 10/01/2021 12:16 PM [facility] Blood BLOOD SPECIMEN / Unknown Lab Venipuncture / Unknown 10/01/2021 11:38 AM DOCENT COORDINATOR 10/01/2021 11:46 AM DOCENT COORDINATOR Amos Pabon MD LAB - CHEMISTRY KURT ZARAGOZA [facility] Organization Address City/State/[facility] Co de Phone Number [facility] [address] [place] [phone] [phone] * (ABNORMAL) BASIC METABOLIC PANEL (CALCIUM TOTAL) (10/01/2021 11:38 AM DOCENT COORDINATOR) [facility] BUN 10 7 - 26 mg/dL 10/01/2021 12:16 PM [facility] Creatinine 0.67(L) 0.71 - 1.16 mg/dL 10/01/2021 12:16 PM [facility] Sodium 136 136 - 145 mmol/L 10/01/2021 12:16 PM [facility] Potassium 3.8 3.5 - 4.5 mmol/L 10/01/2021 12:16 PM [facility] Chloride 105 98 - 107 mmol/L 10/01/2021 12:16 PM [facility] CO2 23 22 - 29 mmol/L 10/01/2021 12:16 PM [facility] Glucose 111 70 - 115 mg/dL 10/01/2021 12:16 PM [facility] Calcium 9.1 8.4 - 10.2 mg/dL 10/01/2021 12:16 PM [facility] Anion Gap 12 8 - 18 10/01/2021 12:16 PM [facility] BUN/Creatinine Ratio 15 7 - 23 10/01/2021 12:16 PM [facility] Osmolality Calculated 282 270 - 300 mOsm/kg 10/01/2021 12:16 PM [facility] eGFR by CKD-EPI >90 >=90 mL/min/1.7 3 m2 10/01/2021 12:16 PM [facility] Blood BLOOD SPECIMEN / Unknown Lab Venipuncture / Unknown 10/01/2021 11:38 AM DOCENT COORDINATOR 10/01/2021 11:46 AM [facility] Amos Pabon MD LAB - CHEMISTRY ORDE NIK [facility] Organization Address City/State/ZIP Co de Phone Number [facility] [address] [place] [phone], [facility] [phone] * (ABNORMAL) CBC W/O DIFFERENTIAL (10/01/2021 11:38 AM DOCENT COORDINATOR) WBC 4.3 3.5 - 10.5 10? 3 /uL 10/01/2021 12:06 PM [facility] RBC 3.52(L) 4.30 - 5.70 10? 6 /uL 10/01/2021 12:06 PM [facility] Hemoglobin 9.8(L) 12.0 - 17.6 g/dL 10/01/2021 12:06 PM [facility] Hematocrit 31.0(L) 35.2 - 51.7 % 10/01/2021 12:06 PM [facility] MCV 88.1 80.7 - 98.3 fL 10/01/2021 12:06 PM [facility] MCH 27.8 26.7 - 34.0 pg 10/01/2021 12:06 PM [facility] MCHC 31.6 30.8 - 35.9 g/dL 10/01/2021 12:06 PM [facility] Platelet Count 209 150 - 400 10? 3 /uL 10/01/2021 12:06 PM [facility] RDW-SD 51.8(H) 36.0 - 50.0 fL 10/01/2021 12:06 PM [facility] RDW-CV 15.9(H) 11.2 - 14.8 % 10/01/2021 12:06 PM [facility] MPV 9.2(L) 9.4 - 12.9 fL 10/01/2021 12:06 PM [facility] nRBC Absolute 0.00 0 10? 3 /uL 10/01/2021 12:06 PM [facility] nRBC Auto 0.0 0 /100 WBC 10/01/2021 12:06 PM [facility] Blood BLOOD SPECIMEN / Unknown Lab Venipuncture / Unknown 10/01/2021 11:38 AM DOCENT COORDINATOR 10/01/2021 11:51 AM DOCENT COORDINATOR Amos Pabon MD LAB - HEMATOLOGY ORD ERABLES [facility] [address] [place] [address], [facility] [phone] * ALPHA FETOPROTEIN BLOOD TUMOR MARKER (10/01/2021 11:38 AM DOCENT COORDINATOR) Alpha-Fetoprote in Tumor Marker 2.6 <=8.3 ng/mL 10/01/2021 12:35 PM [facility] Comment: AFP values will vary depending on testing procedure used. Results are not comparable across different methods. AFP values obtained by [facility] using an Jenkins Alinity Immunoassay. Blood BLOOD SPECIMEN / Unknown Lab Venipuncture / Unknown 10/01/2021 11:38 AM DOCENT COORDINATOR 10/01/2021 11:51 AM DOCENT COORDINATOR Amos Pabon MD LAB - CHEMISTRY KURT Cid Organization Address City/State/ZIP Co de Phone Number [facility] [address] [address], [facility] [phone] documented in this encounter Visit Diagnoses Diagnosis Cirrhosis of liver with ascites, unspecified hepatic cirrhosis type (HCC)- Primary Alcoholic cirrhosis of liver with ascites (HCC) Alcoholic cirrhosis of liver Alcohol use disorder, mild, abuse Anemia, unspecified type Liver failure without hepatic coma, unspecified chronicity (HCC) Cirrhosis of liver with ascites, unspecified hepatic cirrhosis type (HCC) documented in this encounter Care Teams Rug Weaver Relationship Specialty Start Date End Date Major Kraft MD PCP - General 07/01/21 06/08/22 documented as of this encounter
--- OUTSIDE RECORDS SUMMARY | 2024-10-19 20:14 | XMS_ITS | Encounter Summary ---
Author Organization [facility] Healthcare Address [address] [place] [address] Care Team Providers Care Spring Intern Name Role Phone Major Kraft MD Primary Care Provider [phone] Encounter Details Date Type Department Care Team (Late st Contact Info) Description 01/01/2022 Orders Only [facility] [address] [facility] 1st [place] [address] Max Tate, TELEVISION RECEIVER ANALYZER [address] [place] [address] Fracture of unspecified part of neck of left femur, subsequent encounter for closed fracture with routine healing (Primary Dx) Social History Tobacco Use Types Packs/Day Years Used Date Smoking Tobacco: Never Assessed Sex and Gender Information Value Date Recorded Sex Assigned at Not on file Legal Sex Male 1:24 PM CHEF UNDER Gender Identity Not on file Sexual Orientation Not on file documented as of this encounter Plan of Treatment Not on file documented as of this encounter Visit Diagnoses Diagnosis Fracture of unspecified part of neck of left femur, subsequent encounter for closed fracture with routine healing- Primary documented in this encounter Additional Health Concerns Infection Onset Date Last Indicated Resolved Time COVID: Recovered Comment:Added based on recent COVID infection. 11/18/2021 01/01/2022 03/18/2022 3:05 AM C DT documented as of this encounter Care Teams Spring Intern Relationship Specialty Start Date End Date Major Kraft MD PCP - General Internal Medicine 11/07/21 documented as of this encounter
--- OUTSIDE RECORDS SUMMARY | 2024-10-19 20:14 | XMS_ITS | Referral Summary ---
Author Organization [facility] Address [address] [place] [id number] Care Team Providers Care Senior Solutions Engineer Name Role Phone Major Kraft MD Primary Care Provider [phone] Amos Pabon MD Unavailable [phone] Allergies Active Allergy Reactions Criticality Noted Date [...] with complication Hyponatremia 09/29/2023 Hepatic cirrhosis 10/01/2021 Social History Tobacco Use Types Packs/Day Years Used Date Smoking Tobacco: Every Day Cigarettes 0.3 18 Tobacco Cessation:Ready to Q uit: Not Asked; Counseling Given: Not Answered [facility] Utilities Answer Date Recorded In the past 12 months has th e electric, gas, oil, or water company threatened [...] often do you attend chur ch or catholic services? Never 09/29/2023 Do you belong to any clubs o r organizations such as yazidism groups, unions, fraternal or athletic groups, or [...] place to sleep or slept in a long-term (including now)? No 09/29/2023 Personal Safety Answer Date Recorded Have you ever been in or are you currently in a harmful physical or emotional relationship or is someone making you feel afraid or unsafe? 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 HELPER Gender Identity Not on file Sexual Orientation Not on file Occupation Industry Job Start Date Job End Date disabled Not on file Not on file Not on file Last Filed Vital Signs Vital Sign Reading Time Taken Comments Blood Pressure 130/65 10/26/2023 4:38 AM PRINTER SLOTTER HELPER Pulse 68 10/26/2023 4:38 AM PRINTER SLOTTER HELPER Temperature 36.5 ??C (97.7 ??F) 10/26/2023 4:38 AM CS T Respiratory Rate 18 10/26/2023 4:38 AM PRINTER SLOTTER HELPER Oxygen Saturation 96% 10/26/2023 4:38 AM PRINTER SLOTTER HELPER Inhaled Oxygen Concentration - - Weight 90.6 kg (199 lb 11.8 oz) 10/05/2023 7:48 AM PRINTER SLOTTER HELPER Height 170.2 cm (5' 7.01 ) 09/30/2023 7:38 AM CS T Body Mass Index 31.28 09/30/2023 7:38 AM PRINTER SLOTTER HELPER Plan of Treatment Not on file Insurance [facility] [employer] Address: [address] [address] [place] [address] [place] [address] Advance Directives For more information, please contact: [phone] * Full Code (Latest Code Status on File) Date Activated Date Inactivated Comments 09/30/2023 7:23 AM 10/05/2023 5:12 PM Care Teams Senior Solutions Engineer Relationship Specialty Start Date End Date Major Kraft MD PCP - General Internal Medicine 11/07/21 Amos Pabon MD [address] [address] Referring Physician Internal Medicine 10/05/23
--- OUTSIDE RECORDS SUMMARY | 2024-10-19 20:14 | XMS_ITS | Encounter Summary ---
Author Organization [facility] Address [address] [place] [address] Care Team Providers Care Combination Operator Name Role Phone Major Kraft MD Primary Care Provider + [phone] Eric Oconnell MD Unavailable + [phone] Reason for Visit * Reason Onset Date Comments Pain 11/19/2021 Encounter Details Date Type Department Care Team (Late st Contact Info) Description 11/19/2021 Telephone [facility] - [address] [phone] Anai Hahn RN Pain Social History Tobacco Use Types Packs/Day Years [...] COVID-19? No / Unsure 10/21/2021 9:44 AM ICICLE MACHINE OPERATOR documented as of this encounter Miscellaneous Notes * Telephone Encounter - Sheridan Ng RN - 11/21/2021 9:14 AM CST Called patients living facility and relayed message from Dr. Pabon that it is okay for the patient to take 50 mg Tramadol every 6 hours as needed for pain. RN Valeria states understanding. LE MACHINE OPERATOR * Telephone Encounter - Haresh Dickerson RN - 11/21/2021 8:42 AM CST Pt calls triage re: identical issue. Clarified with pt he is seeking tramadol q6h, or qid dosing for pain. LE MACHINE OPERATOR * Telephone Encounter - Anai Hahn RN - 11/19/2021 2:46 PM CST RN called patient to inform of message per Dr. Pabon: Yes, ok to add an extra dose 50 mg tab as needed for pain control up to 2 times in a day. Spoke with nurse Clarita at facility. Informed that patient is taking 50 mg TID around the clock. Will verify with Dr. Pabon okay to add 50 mg still and will call Clarita back LE MACHINE OPERATOR * Telephone Encounter - Anai Hahn RN - 11/19/2021 10:35 AM CST Patient called looking for approval on increasing Tramadol dose. Patient is getting it through doctor at skilled nursing but needs approval from Dr. Pabon first.Patient is having a lot of joint pain. LE MACHINE OPERATOR documented in this encounter Plan of Treatment Upcoming Encounters Date Type Department Care Team (Late st Contact Info) Description 11/29/2024 8:30 AM ICICLE MACHINE OPERATOR Office Visit [facility] - [facility] [address] [facility] [place] [address] Toño Cabrera MD [address] [facility] [address] [place] [address] 01/08/2025 8:00 AM CDT Appointment [address] [phone] 01/08/2025 9:00 AM CDT Office Visit [facility] - GI [address] [facility] [place] [address] Amos Pabon MD [facility] [place] [address] documented as of this encounter Goals Goal [...] on filedocumented in this encounter Care Teams Combination Operator Relationship Specialty Start Date End Date Major Kraft MD PCP - General 07/01/21 06/08/22 Eric Oconnell MD Hospitalist 10/10/21 documented as of this encounter
--- OUTSIDE RECORDS SUMMARY | 2024-10-19 20:14 | XMS_ITS | Encounter Summary ---
Author Organization [facility] Healthcare Address [address] [place] [address] Care Team Providers Care Cloth Folder Hand Name Role Phone Major Kraft MD Primary Care Provider Amos Pabon MD Unavailable [phone] Reason for Visit * Reason Comments Hip Pain Encounter Details Date Type Department Care Team (Late st Contact Info) Description 10/26/2023 2:25 AM JEWELRY BENCH MOLDER - 10/26/2023 6:33 AM [facility] Emergency [address] [address] Amalia Boggs DO [address] [place] [id number] Left hip pain (Primary Dx) Discharge Disposition: Discharge to alf facility Social History Tobacco Use Types Packs/Day Years Used Date Smoking Tobacco: Every Day Cigarettes 0.3 18 [facility] Utilities Answer Date Recorded In the past 12 months has [employer], gas, oil, or water company threatened to [...] often do you attend chur ch or zoroastrianism services? Never 09/29/2023 Do you belong to any clubs o r organizations such as hinduism groups, unions, fraternal or athletic groups, or [...] place to sleep or slept in a custodial (including now)? No 09/29/2023 Personal Safety Answer Date Recorded Have you ever been in or are you currently in a harmful physical or emotional relationship or is someone making you feel afraid or unsafe? Denies 09/28/2023 Sex and Gender Information Value Date Recorded Sex Assigned at Not on file Legal Sex Male 1:24 PM JEWELRY BENCH MOLDER Gender Identity Not on file Sexual Orientation Not on file Occupation Industry Job Start Date Job End Date disabled Not on file Not on file Not on file documented as of this encounter Last Filed Vital Signs Vital Sign Reading Time Taken Comments Blood Pressure 130/65 10/26/2023 4:38 AM JEWELRY BENCH MOLDER Pulse 68 10/26/2023 4:38 AM JEWELRY BENCH MOLDER Temperature 36.5 ??C (97.7 ??F) 10/26/2023 4:38 AM CS T Respiratory Rate 18 10/26/2023 4:38 AM JEWELRY BENCH MOLDER Oxygen Saturation 96% 10/26/2023 4:38 AM JEWELRY BENCH MOLDER Inhaled Oxygen Concentration - - Weight - - Height - - Body Mass Index - - documented in this encounter Discharge Instructions * Discharge Instructions* Amalia Boggs DO - 10/26/2023 4:41 AM JEWELRY BENCH MOLDER Please follow-up with your primary care physician in the next 2-3 days for further evaluation. You have been prescribed a muscle relaxer. Please take as directed. Call the orthopedic surgeon today. Return immediately for any new symptoms, worsening of symptoms, or persistent symptoms. You MUST follow up for further evaluation of all incidental abnormal radiographic and laboratory findings, Have your physician obtain records from this visit and address all the incidental abnormal findings. This may include final results of lab testing, cultures, final x-ray reports which may not have been available during the time of the visit. LRY BENCH MOLDER * Attachments The following attachments cannot be sent through Care Everywhere. * Hip Pain (AfterCare(R) Instructions(ER/ED)) (Vietnamese) documented in this encounter Medications at Time [...] capsule (5,000 Units total) by mouth daily diazePAM (VALIUM) 5 mg tablet Take 1 tablet (5 mg total) by mouth 2 (two) times a day 6 tablet 10/26/2023 diclofenac sodium (VOLTAREN) 1 % gel Apply [...] mouth 3 (three) times a day 08/18/2022 hydrOXYzine (ATARAX) 25 mg tablet Take 1 tablet (25 mg total) by mouth 3 (three) times a day 06/07/2023 melatonin tablet Take 2 tablets (6 mg [...] by mouth 2 (two) times a day QUEtiapine (SEROquel) 25 mg tablet Take 0.5 tablets (12.5 mg total) by mouth 3 (three) times a day 06/09/2023 sertraline (ZOLOFT) 50 mg tablet Take 1 tablet (50 mg total) by mouth every morning spironolactone (ALDACTONE) 100 mg tablet Take 1 tablet (100 mg total) by mouth daily 07/30/2022 sucralfate (CARAFATE) suspension 1 gram/10 mL Take 10 mL (1 g total) by mouth 3 (three) times a day thiamine (VITAMIN B1) 100 mg tablet Take 1 tablet (100 mg total) by mouth daily traMADoL (ULTRAM) 50 mg tablet Take 1 tablet (50 mg total) by mouth every 6 (six) hours 08/05/2022 traZODone (DESYREL) 50 mg tablet Take 1 tablet (50 mg total) by mouth nightly 11 09/17/2023 Xifaxan 550 mg tablet Take 1 tablet (550 mg total) by mouth 2 (two) times a day 08/24/2022 documented as of this encounter Ordered Prescriptions Prescription Sig Dispense Quantity Refills Last Filled Start Date End Date diazePAM (VALIUM) 5 mg tablet Take 1 tablet (5 mg total) by mouth 2 (two) times a day 6 tablet 10/26/2023 documented in this encounter Discharge Disposition Disposition Code Departure Means Destination Comment s Discharge to alf facility [facility] ([place], [place]) documented in this encounter ED Notes * Amalia Boggs DO - 10/26/2023 3:53 AM CST HPI Chief Complaint Patient presents with Hip Pain HPI Pt brought in from [facility]. Hx of left hip fx for past 2 years. Increased painrecently. Lukas Diaz is a 38 y.o. male presenting to the ED c/o left hip pain. He has hx of a hip fracture and for the past week, it has been worsening with pain. States that it will go numb unless he moves it and then he will get increased pain. No fever, chills. He has convulsions in the left leg. He takes [place] for the pain and was helping. He just started physical therapy less than a week ago. It was already worsening pain, but feels like it is even worse with the PT. Orthopedic surgeon--Dr. Cabrera. States they are planning for hip replacement. Patient History: Past Medical History: Diagnosis Date Alcoholism (CMS/HCC) (HCC) Cirrhosis (HCC) Gastric reflux Peptic ulceration No past surgical history on file. Family History Problem Relation Age of Onset No Known Problems Mother No Known Problems Father Social History Tobacco Use Smoking status: Every Day Packs/day: 0.25 Years: 18.00 Additional pack years: 0.00 Total pack years: 4.50 Types: Cigarettes Smokeless tobacco: Not on file Substance and Sexual Activity Drug use: Yes Types: Alcohol Comment: 20-30 beers/day Sexual activity: Defer Alcohol Use: Alcohol Misuse (09/29/2023) AUDIT-C Frequency of Alcohol Consumption: Monthly or less Average Number of Drinks: 10 or more Frequency of Binge Drinking: Daily or almost daily No current facility-administered medications for this encounter. Current Outpatient Medications: acetaminophen (TYLENOL) 500 mg tablet baclofen (LIORESAL) 10 mg tablet busPIRone (BUSPAR) 5 mg tablet calcium carbonate (TUMS) 500 mg (200 mg elemental) chewable tablet cholecalciferol (VITAMIN D-3) 5,000 unit capsule diazePAM (VALIUM) 5 mg tablet diclofenac sodium (VOLTAREN) 1 % gel Enulose 10 gram/15 mL solution ferrous sulfate 325 mg (65 mg of elemental iron) tablet folic acid (FOLVITE) 1 mg tablet furosemide (LASIX) 40 mg tablet gabapentin (NEURONTIN) 400 mg capsule hydrOXYzine (ATARAX) 25 mg tablet melatonin tablet ondansetron (ZOFRAN) 4 mg tablet potassium chloride ER 20 mEq CR tablet propranoloL (INDERAL) 10 mg tablet QUEtiapine (SEROquel) 25 mg tablet sertraline (ZOLOFT) 50 mg tablet spironolactone (ALDACTONE) 100 mg tablet sucralfate (CARAFATE) suspension 1 gram/10 mL thiamine (VITAMIN B1) 100 mg tablet traMADoL (ULTRAM) 50 mg tablet traZODone (DESYREL) 50 mg tablet Xifaxan 550 mg tablet Review of Systems Review of Systems All systems reviewed and are neg or non contributory for this patients presentation today other than as stated in the HPI . Physical Exam ED Triage Vitals Temp Pulse Resp BP SpO2 10/26/23 0438 10/26/23 0250 10/26/23 0250 10/26/23 0250 10/26/23 0250 36.5 ??C (97.7 ??F) 89 25 137/95 95 % Temp src Heart Rate Source Patient Position BP Location FiO2 (%) 10/26/23 0438 10/26/23 0438 10/26/23 0438 10/26/23437 -- Oral Monitor Sitting Right arm Height Height Method Weight Weight Method -- -- -- -- Patient Vitals for the past 24 hrs: BP Temp Temp src Pulse Resp SpO2 10/26/23 0438 130/65 36.5 ??C (97.7 ??F) Oral 68 18 96 % 10/26/23 0255 -- -- -- 75 22 95 % 10/26/23 0250 137/95 -- -- 89 25 95 % Physical Exam Vitals and nursing note reviewed. GENERAL: Patient is conscious alert and oriented x3 and in no acute distress. HEENT: Head is normocephalic and atraumatic. Extraocular muscles are intact. NECK: Trachea is midline. No meningeal signs. LUNGS: Lungs are clear to auscultation bilaterally. There is good respiratory effort. HEART: regular rate and rhythm, no murmur. There is no gallop or rub. . ABDOMEN: Soft and nontender to palpation. MUSCULOSKELETAL: Moves all extremities x4. There is no obvious deformity. Radial pulses are intact.No tenderness to palpation of the left hip. No convulsions or shaking at this time. SKIN: Exposed skin shows no obvious erythema. Skin is warm and dry. There is no rash. NEUROLOGIC: Patient is conscious, alert and oriented x3. PSYCH: Normal affect. Procedures MDM Labs Reviewed - No data to display XR Hip Left 2 or 3 Views W Pelvis EXAM DESCRIPTION: XR HIP LEFT 2 OR 3 VIEWS W PELVIS REASON FOR STUDY: left hip pain Pt brought in from [facility]. Hx of left hip fx for past 2 years. Pt states he did not have any surgery.Pt states he does therapy on hip and can normally bear a little weight on leg. Now he is unable to bear weight. Increased pain recently. TECHNIQUE: Single view of the pelvis and AP and frog-leg lateral views of the left hip. COMPARISON: Comparison is made to plain films of the left hip of August 25, 2022. FINDINGS: BONES: The bony pelvis appears intact. The proximal right femur is unremarkable. There is an old, ununited left hip fracture with complete bony resorption of the lower half of the left femoral head and femoral neck. A small amount of the femoral head remains in Situ in normal alignment with the left acetabulum with mild sclerosis, unchanged. There is foreshortening of the left femur with superior displacement of the intertrochanteric portion of the left femur, unchanged from previous. SOFT TISSUES: The soft tissues are unremarkable. 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 THIS IS AN ELECTRONICALLY VERIFIED FINAL REPORT 10/26/2023 4:00 AM - Electronically signed by Hiral Rodrigues M.D. SN T: Report ID: [id number] Reading Location: [id number] BP 130/65 (BP Location: Right arm, Patient Position: Sitting) Pulse 68 Temp 36.5 ??C (97.7 ??F)(Oral) Resp 18 SpO2 96% Medical Decision Making Clinical problems/dx: Lukas Diaz is a 38 y.o. male who presents with left hip pain. ED Course -Patient seen and evaluated, available studies reviewed -Prior available records reviewed, triage notes reviewed. -Discussed results with patient. No change in xray. He feels better with the medication. He is to f/u with ortho. He agrees. ED Course as of 10/26/23 0515 Time: 10/26 0507 Comment: Pt feeling better. No change in xray from previous. No recent fall. Will discharge with follow-up with his orthopedic surgeon. By: Amalia Boggs DO This examination was transcribed using the Share[employer] voice recognition system without human director hematology. In an effort to expedite patient care, this report has not been adjusted for typographical, grammatical, and syntax by a trained emergency medical technician basic. Clinical Impression: Left hip pain Amalia Boggs DO 10/29/23 0639 LRY BENCH MOLDER * Reanna Mcfarland RN - 10/26/2023 2:30 AM CST Pt brought in from [facility]. Hx of left hip fx for past 2 years. Increased painrecently. LRY BENCH MOLDER documented in this encounter Plan of Treatment Not on file documented as of this encounter Procedures Procedure Name Priority Date/Time Associated Diagnosis Comments XR HIP LEFT W PELVIS 2 OR 3 VIEWS ED 10/26/2023 3:45 AM JEWELRY BENCH MOLDER documented in this encounter Results * XR Hip Left 2 or 3 Views W Pelvis (10/26/2023 3:45 AM JEWELRY BENCH MOLDER) Anatomical Region Laterality Modality Lower Extremities, Hip, Pelvis Left C omputed Radiography 10/26/2023 3:57 AM JEWELRY BENCH MOLDER Narrative 10/26/2023 4:00 AM JEWELRY BENCH MOLDER EXAM DESCRIPTION: XR HIP LEFT 2 OR 3 VIEWS W PELVIS REASON FOR STUDY: left hip pain ?? Pt brought in from [facility]. Hx of left hip fx for past 2 years. Pt states he did not have any surgery.Pt states he does therapy on hip and can normally bear a little weight on leg. Now he is unable to bear weight. Increased pain ?? recently. ? TECHNIQUE: Single view of the pelvis and AP and frog-leg lateral views of the left hip. COMPARISON: Comparison is made to plain films of the left hip of August 25, 2022. FINDINGS: BONES: ??The bony pelvis appears intact. ??The proximal right femur is unremarkable. ?There is an old, ununited left hip fracture with complete bony resorption of the lower half of the left femoral head and femoral neck. ?? A small amount of the femoral head remains in Situ in normal alignment with the left acetabulum with mild sclerosis, unchanged. ??There is foreshortening of the left femur with superior displacement of the intertrochanteric portion of the left femur, unchanged from previous. SOFT TISSUES: ??The soft tissues are unremarkable. 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 THIS IS AN ELECTRONICALLY VERIFIED FINAL REPORT 10/26/2023 4:00 AM - Electronically signed by ??Hiral Rodrigues M.D. SN D: ??10/26/2023 4:00 AM T: Report ID: [id number] Reading Location: ??[id number] Procedure Note Hiral Rodrigues MD - 10/26/2023 EXAM DESCRIPTION: XR HIP LEFT 2 OR 3 VIEWS W PELVIS REASON FOR STUDY: left hip pain Pt brought in from [facility]. Hx of left hip fx forpast 2 years. Pt states he did not have any surgery.Pt states he does therapy onhip and can normally bear a little weight on leg. Now he is unable to bearweight. Increased pain recently. TECHNIQUE: Single view of the pelvis and AP and frog-leg lateral views ofthe left hip. COMPARISON: Comparison is made to plain films of the left hip of 2021. FINDINGS: BONES: The bony pelvis appears intact. The proximal rightfemur is unremarkable. There is an old, ununited left hip fracture with complete bony resorption of the lower half of the left femoral head and femoralneck. A small amount of the femoral head remains in Situ in normal alignmentwith the left acetabulum with mild sclerosis, unchanged. There isforeshortening of the left femur with superior displacement of the intertrochantericportion of the left femur, unchanged from previous. SOFT TISSUES: The soft tissues are unremarkable. 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 THIS IS AN ELECTRONICALLY VERIFIED FINAL REPORT 10/26/2023 4:00 AM - Electronically signed by Hiral Rodrigues M.D. SN T: Report ID: [id number] Reading Location: [id number] Amalia Boggs DO IMG XR PROCEDURES Final Result documented in this encounter Visit Diagnoses Diagnosis Left hip pain- Primary Pain in joint, pelvic region and thigh documented in this encounter Administered Medications Inactive Administered Medications - up to 3 most recent administrations Medication Order MAR Action Action Date Dose Rate Site diazePAM (VALIUM) tablet 5 mg 5 mg, oral, Once, On Wed10/26/23 at 0358, For 1 dose Given 10/26/2023 4:11 AM JEWELRY BENCH MOLDER 5 mg HYDROcodone-acetaminophen (NORCO) 5-325 mg per tablet 1 tablet 1 tablet, oral, Once, On Wed10/26/23 at 0325, For 1 dose, Indications: PainIndications:Pain Given 10/26/2023 4:08 AM JEWELRY BENCH MOLDER 1 tablet documented in this encounter Active and Recently Administered Medications Times are shown in JEWELRY BENCH MOLDER. Scheduled Medication Order 10/24/2023 10/25/2023 10/26/2023 diazePAM (VALIUM) tablet 5 mg (COMPLETED) 5 mg, oral, Once, On Wed10/26/23 at 0358, For 1 dose 0411 (Given - Provid er: Marcelo Sharpe RN) HYDROcodone-acetaminophen (NORCO) 5-325 mg per tablet 1 tablet (COMPLETED) 1 tablet, oral, Once, On Wed10/26/23 at 0325, For 1 dose, Indications: Pain 0408 (Given - Provid er: Marcelo Shapre RN) documented in this encounter Care Teams Cloth Folder Hand Relationship Specialty Start Date End Date Major Kraft MD PCP - General Internal Medicine 11/07/21 Amos Pabon MD [address] [address] Referring Physician Internal Medicine 10/05/23 documented as of this encounter
--- OUTSIDE RECORDS SUMMARY | 2024-10-19 20:14 | XMS_ITS | Encounter Summary ---
Author Organization [facility] Address [address] [place] [address] Care Team Providers Care Exterminator Termite Name Role Phone Major Kraft MD Primary Care Provider + [phone] Eric Oconnell MD Unavailable + [phone] Encounter Details Date Type Department Care Team ([facility] Contact Info) Description 10/16/2021 Orders Only [facility] - GI [address] [place] [address], [place] [phone] Amos Pabon MD [address] [place] [address] OF GASTROENTEROLOGY [place], [place] [id number] Social History Tobacco Use Types Packs/Day Years [...] COVID-19? No / Unsure 10/01/2021 10:22 AM QUARRYMAN documented as of this encounter Plan of Treatment Upcoming Encounters Date Type Department Care Team ([facility] Contact Info) Description 11/29/2024 8:30 AM QUARRYMAN Office Visit [facility] - Orthopedic Surgery [facility] [place] [phone] Toño Cabrera MD [address] [place] [address] 01/08/2025 8:00 AM CDT Appointment [facility] [address] [place] [address] 01/08/2025 9:00 AM CDT Office Visit [facility] - GI [address] [facility], [place] [phone] Amos Pabon MD [address] [facility] 2L [place] [address] documented as of this encounter Goals Goal [...] on filedocumented in this encounter Care Teams Exterminator Termite Relationship Specialty Start Date End Date Major Kraft MD PCP - General 07/01/21 06/08/22 Eric Oconnell MD Hospitalist 10/10/21 documented as of this encounter
--- OUTSIDE RECORDS SUMMARY | 2024-10-19 20:14 | XMS_ITS | Encounter Summary ---
Author Organization [facility] Address [address] [place] [address] Care Team Providers Care Radiographer Name Role Phone Major Kraft MD Primary Care Provider [phone] Eric Oconnell MD Unavailable + [phone] Reason for Visit * Reason Onset Date Comments Care Management 11/11/2021 Encounter Details Date Type Department Care Team (Late st Contact Info) Description 11/11/2021 Telephone [facility] - [address] [facility], [place] [phone] Adilson Raygoza, RN Care Management Social History Tobacco Use Types Packs/Day Years [...] COVID-19? No / Unsure 10/21/2021 9:44 AM PATIENT SERVICE COORDINATOR documented as of this encounter Miscellaneous Notes * Telephone Encounter - Adilson Raygoza RN - 11/11/2021 9:56 AM CST Patient called triage to report to provider the following SX: Constant sharp pounding RUQ abd pain radiating to R flank and down RLE. Pain 8/10 at rest & 10/10 w/activity. No other symptoms reported. Stated taking Tramadol for pain w/o relief. Unable to take Acetaminophen or Ibuprophen. Would like direction from provider. Can call him directly at # in chart or home # listed is for facility and can speak with his RN. ENT SERVICE COORDINATOR documented in this encounter Plan of Treatment Upcoming Encounters Date Type Department Care Team (Late st Contact Info) Description 11/29/2024 8:30 AM PATIENT SERVICE COORDINATOR Office Visit [facility] - Orthopedic Surgery [address] [place] [address] Toño Cabrera MD [address] [facility] [address] [place] [address] 01/08/2025 8:00 AM CDT Appointment [facility] [address] [place] [phone] 01/08/2025 9:00 AM CDT Office Visit [facility] - GI [address] [facility], [place] [phone] Amos Pabon MD [address] [place] [address] [address] [facility] [place] [address] documented as of this encounter Goals Goal [...] on filedocumented in this encounter Care Teams Radiographer Relationship Specialty Start Date End Date Major Kraft MD PCP - General 07/01/21 06/08/22 Eric Oconnell MD Hospitalist 10/10/21 documented as of this encounter
--- OUTSIDE RECORDS SUMMARY | 2024-10-19 20:14 | XMS_ITS | Encounter Summary ---
Author Organization [facility] Address [address] [facility] [place] [address] Care Team Providers Care Newcomer Hostess Name Role Phone Major Kraft MD Primary Care Provider + [phone] Eric Oconnell MD Unavailable + [phone] Reason for Visit * Reason Onset Date Comments Follow-up 11/13/2021 Encounter Details Date Type Department Care Team (Late st Contact Info) Description 11/13/2021 Telephone [facility] - [address] [place] [phone] Sheridan Ng, RN Follow-up Social History Tobacco Use Types [...] COVID-19? No / Unsure 10/21/2021 9:44 AM PST SUPERVISOR documented as of this encounter Miscellaneous Notes * Telephone Encounter - Sheridan Ng RN - 11/13/2021 4:12 PM CST Called and spoke with RN at [facility]. Relayed message from Dr. Pabon: Let us have him do a CBC, CMP, INR, Amylase, Lipase, PeTH test done here or locally. Recent US was overall unremarkable. If not feeling better needs to go to ER. They will lab fax results to our office. RN states understanding of message. SUPERVISOR documented in this encounter Plan of Treatment Upcoming Encounters Date Type Department Care Team (Late st Contact Info) Description 11/29/2024 8:30 AM PST SUPERVISOR Office Visit [facility] - Orthopedic Surgery [address] [place] [address] Toño Cabrera MD [address] [facility] [address] [place] [address] 01/08/2025 8:00 AM CDT Appointment [facility] [address] [place] [phone] 01/08/2025 9:00 AM CDT Office Visit [facility] - GI [address] [facility], [place] [phone] Amos Pabon MD [address] [place] [address] [place] [address] documented as of this encounter Goals Goal [...] on filedocumented in this encounter Care Teams Newcomer Hostess Relationship Specialty Start Date End Date Major Kraft MD PCP - General 07/01/21 06/08/22 Eric Oconnell MD Hospitalist 10/10/21 documented as of this encounter
--- OUTSIDE RECORDS SUMMARY | 2024-10-19 20:14 | XMS_ITS | Encounter Summary ---
Author Organization [facility] Address [address] [address] Care Team Providers Care Career Center Advisor Name Role Phone Major Kraft MD Primary Care Provider [phone] Reason for Referral * Diagnostic Imaging (Routine) - Closed Specialty Diagnoses / Procedures Referred By Contac t Referred To Contact Diagnoses Left hip pain Procedures XR Hip Left 2 or 3 Views Isaak Chase MD [address] [place] [address] [address] Phone: tel: fax: [address] [phone] Referral ID Status Reason Start Date Expiration Date Visits Re quested Visits Authorized [id number] Closed 08/24/2022 09/23/2023 1 1 Reason for Visit * Reason Comments Pain Encounter Details Date Type Department Care Team (Late st Contact Info) Description 08/25/2022 2:00 PM CDT Office Visit [facility] Orthopedics and Sports Medicine [address] [place] [phone] Isaak Chase MD [address] [place] [address] [address] 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 (Primary Dx) Social History Tobacco Use Types Packs/Day Years Used Date Smoking Tobacco: Never Tobacco Cessation:Counseling Given: Not Answered Sex and Gender Information Value Date Recorded Sex Assigned at Not on file Legal Sex Male 1:24 PM REGISTERED OCCUPATIONAL THERAPIST Gender Identity Not on file Sexual Orientation Not on file Occupation Industry Job Start Date Job End Date disabled Not on file Not on file Not on file documented as of this encounter Last Filed Vital Signs Vital Sign Reading Time Taken Comments Blood Pressure - - Pulse - - Temperature - - Respiratory Rate - - Oxygen Saturation - - Inhaled Oxygen Concentration - - Weight 85.7 kg (189 lb) 08/25/2022 2:01 PM CDT Height 170.2 cm (5' 7 ) 08/25/2022 2:01 PM CDT Body Mass Index 29.6 08/25/2022 2:01 PM CDT documented in this encounter Progress Notes * Isaak Chase MD - 08/25/2022 2:00 PM CDT Images from the original note were not included. CHIEF COMPLAINT: Left hip pain with lower extremity shortening HISTORY OF PRESENT ILLNESS: This patient is a 36-year-old male who comes to the office today stating that he wants a 2nd opinion. He has been treated at [facility] for injuries sustained to his left hip some time ago. He reports a fall back in November of this year sustaining a left femoral neck fracture. Apparently some surgery was contemplated either in the form of a replacement or pinning but never got followed through. As a result the patient has neglected left hip fracture that has never had surgical intervention and has gone onto nonunion. He has pain and left lower extremity shortening and difficult time walking as a result. Just a couple weeks ago he was seen by joint reconstruction surgeon at [facility] and advised to have a left total hip arthroplasty. He has been advised to have cardiac and dental clearance before surgery. He presents today requesting a 2nd opinion. PHYSICAL EXAM: The patient has rolled into the office today on a wheelchair. He is not much pain in fact range of motion of the left hip is minimally discomforting. Has gross shortening of the left lower extremity probably beyond an inch and a half shorter than the right. Neurovascular exam is normal. There is noright hip pain. IMAGING: X-rays of the left hip made today in the office show a left femoral neck subcapital nonunion with proximal migration of the femoral shaft and no healing. DIAGNOSIS: 1. 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 This is going to be a difficult procedure because of lower extremity shortening of the chronicity of his injury. I think he is best served at the [facility] which is where he was seen just a few weeks ago. I have advised him that he should have his hip replaced and should follow through with the recommendations of his previous surgeon including his dental clearance. He is happy with this recommendation and he will follow up with his previous surgeon. 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 diclofenac sodium (VOLTAREN) 1 % gel Apply 2 g topically 4 (four) times a day as needed (pain) melatonin tablet Take 2 tablets (6 mg total) by mouth nightly as needed acetaminophen (TYLENOL) 500 mg tablet Take 2 tablets (1,000 mg total) by mouth every 8 (eight) hours as needed for pain ondansetron (ZOFRAN) 4 mg tablet Take 1 tablet (4 mg total) by mouth every 8 (eight) hours as needed for nausea or vomiting propranoloL (INDERAL) 10 mg tablet Take 1 tablet (10 mg total) by mouth 2 (two) times a day calcium carbonate (TUMS) 500 mg (200 mg elemental) chewable tablet Take 1 tablet/chew tab (500 mg total) by mouth 3 (three) times a day with meals cholecalciferol (VITAMIN D-3) 5,000 unit capsule Take 1 capsule (5,000 Units total) by mouth daily thiamine (VITAMIN B1) 100 mg tablet Take 1 tablet (100 mg total) by mouth daily traMADoL (ULTRAM) 50 mg tablet Take 1 tablet (50 mg total) by mouth every 6 (six) hours 08/05/2022 spironolactone (ALDACTONE) 100 mg tablet Take 1 tablet (100 mg total) by mouth daily 07/30/2022 Xifaxan 550 mg tablet Take 1 tablet (550 mg total) by mouth 2 (two) times a day 08/24/2022 potassium chloride ER 20 mEq CR tablet Take 1 tablet (20 mEq total) by mouth daily 08/24/2022 Enulose 10 gram/15 mL solution Take 30 mL (20 g total) by mouth 3 (three) times a day 08/16/2022 gabapentin (NEURONTIN) 400 mg capsule Take by mouth 3 (three) times a day 08/18/2022 furosemide (LASIX) 40 mg tablet Take 1 tablet (40 mg total) by mouth 2 (two) times a day 08/25/2022 folic acid (FOLVITE) 1 mg tablet Take 1 tablet (1 mg total) by mouth daily 08/03/2022 ferrous sulfate 325 mg (65 mg of elemental iron) tablet Take 1 tablet (325 mg total) by mouth daily 07/30/2022 busPIRone (BUSPAR) 5 mg tablet Take 1 tablet (5 mg total) by mouth 2 (two) times a day 08/03/2022 baclofen (LIORESAL) 10 mg tablet Take 1.5 tablets (15 mg total) by mouth 3 (three) times a day 08/15/2022 sucralfate (CARAFATE) 1 gram tablet TAKE 1 TABLET BY MOUTH BEFORE MEALS AND AT BEDTIME 05/20/[address] (PROTONIX) 40 mg EC tablet 08/21/2022 3 mirtazapine (REMERON) 7.5 mg tablet 08/11/2022 3 citalopram (CeleXA) 10 mg tablet 08/04/2022 3 added in this encounter Care Teams Career Center Advisor Relationship Specialty Start Date End Date Major Kraft MD PCP - General Internal Medicine 11/07/21 documented as of this encounter
--- OUTSIDE RECORDS SUMMARY | 2024-10-19 20:14 | XMS_ITS | Encounter Summary ---
Author Organization [facility] Address [address] [place] [address] Care Team Providers Care Ship'S Captain Name Role Phone Major Kraft MD Primary Care Provider [phone] Eric Oconnell MD Unavailable + [phone] Encounter Details Date Type Department Care Team (Latest Contact Info) Description 10/21/2021 Travel Social History Tobacco Use Types Packs/Day [...] COVID-19? No / Unsure 10/21/2021 9:44 AM GROUP FITNESS ASSISTANT DEPARTMENT HEAD documented as of this encounter Plan of Treatment Upcoming Encounters Date Type Department Care Team (Late st Contact Info) Description 11/29/2024 8:30 AM GROUP FITNESS ASSISTANT DEPARTMENT HEAD Office Visit [facility] - Orthopedic Surgery [address] [place] [phone] Toño Cabrera MD [address] [address] 01/08/2025 8:00 AM CDT Appointment [address] [phone] 01/08/2025 9:00 AM CDT Office Visit [facility] - GI [address] [facility], [place] [address] Amos Pabon MD [address] [place] [address] [place] [address] documented as of this encounter Goals Goal [...] on filedocumented in this encounter Care Teams Ship'S Captain Relationship Specialty Start Date End Date Major Kraft MD PCP - General 07/01/21 06/08/22 Eric Oconnell MD Hospitalist 10/10/21 documented as of this encounter
--- OUTSIDE RECORDS SUMMARY | 2024-10-19 20:14 | XMS_ITS | Encounter Summary ---
Author Organization [facility] Healthcare Address [address] [place] [address] Care Team Providers Care Furniture Assembler Name Role Phone Major Dotson MD Primary Care Provider [phone] Harpal Lopez MD Unavailable [phone] Reason for Visit * Reason Comments Chest Pain * Auth/Cert (Routine) Specialty Diagnoses / Procedures Referred By Contac t Referred To Contact Diagnoses Alcohol withdrawal syndrome with complication (HCC) Procedures n/a Referral ID Status Reason Start Date Expiration Date Visits Re quested Visits Authorized [id number] 1 1 Encounter Details Date Type Department Care Team (Late st Contact Info) Description 09/28/2023 7:58 PM MEAL GRINDER TENDER - 10/05/2023 1:06 PM MEAL GRINDER TENDER Hospital Encounter [address] [address] Mansoor Valdes MD [address] [place] [phone] Miguelito James Jr., MD [address] [place] [address] Manuelito Hannah MD [address] [place] [phone] Donal Cabrera MD [address] [place] [address] Negrito Crowley MD [address] [place] [id number] Alcohol withdrawal syndrome with complication (HCC) (Primary Dx) Discharge Disposition: Discharge to SNF Social History Tobacco Use Types Packs/Day Years Used Date Smoking Tobacco: Every Day Cigarettes 0.3 18 Tobacco Cessation:Ready to Q uit: Not Asked; Counseling Given: Not Answered [facility] Utilities Answer Date Recorded In the past 12 months has th e [place], gas, oil, or water [place] threatened to shut off services in your [...] often do you attend chur ch or sabianism services? Never 09/29/2023 Do you belong to any clubs o r organizations such as anglican groups, unions, fraternal or athletic groups, or [...] on file Legal Sex Male 1:24 PM MEAL GRINDER TENDER Gender Identity Not on file Sexual Orientation Not on file Occupation Industry Job Start Date Job End Date disabled Not on file Not on file Not on file documented as of this encounter Last Filed Vital Signs Vital Sign Reading Time Taken Comments Blood Pressure 111/80 10/05/2023 11:30 AM MEAL GRINDER TENDER Pulse 71 10/05/2023 11:30 AM MEAL GRINDER TENDER Temperature 36.5 ??C (97.7 ??F) 10/05/2023 1 1:30 AM MEAL GRINDER TENDER Respiratory Rate 16 10/05/2023 11:3 0 AM MEAL GRINDER TENDER Oxygen Saturation 96% 10/05/2023 11: 30 AM MEAL GRINDER TENDER Inhaled Oxygen Concentration - - Weight 90.6 kg (199 lb 11.8 oz) 10/05/2023 7:48 AM MEAL GRINDER TENDER Height 170.2 cm (5' 7.01 ) 09/30/2023 7:38 AM CS T Body Mass Index 31.28 09/30/2023 7:38 AM MEAL GRINDER TENDER documented in this encounter Discharge Summaries * Negrito Crowley MD - 10/05/2023 1:06 PM CST Inpatient Discharge Summary Patient Name - Love Diaz Patient Age - 38 yrs Patient - [id number] [facility] - [id number] Document Creation Date: 10/10/2023 Admitting Provider, : Manuelito Hannah MD Discharge Provider, : No att. providers found Primary Care Physician at Discharge: Major Dotson MD [phone] Admission Date: 09/28/2023 Discharge Date/time: 10/05/2023 Admission Location: [facility] LOS - LOS: 6 days DETAILS OF HOSPITAL STAY Hospital Problems/Diagnoses Principal Problem: Alcohol withdrawal syndrome with complication (HCC) Active Problems: Hepatic cirrhosis (HCC) Hyponatremia Reason for Hospitalization: 38 y.o. male with a PMHx significant for alcoholism and cirrhosis. Patient presents to the emergency department with alcohol withdrawal. Patient had been at [facility] and rehab but was on a 7 day leave when he began drinking heavily. Patient states he has been drinking 20-30 beers per day. He was at [facility].His last alcohol use was yesterday. He currently denies chest pain, shortness breath, nausea, vomiting, diarrhea. He does endorse right upper quadrant pain and states that has been chronic. Hospital Course: Alcohol dependence c/b withdrawal syndrome - patient [facility], was out on leave and began to consume alcohol heavily with approximately 20-30 beers per day - continue home dose Seroquel 12.5 mg p.o. t.i.d. - continue home dose Zoloft 50 mg p.o. daily - TTE: EF 55-60% - fall precautions - seizure precautions - withdrawal symptoms resolved and feeling ok for discharge. - Patient has appointment with [facility] Hepatology in October and asked him to keep the appointment. Hyponatremia - resolved Hepatic cirrhosis - continue home dose propranolol 10 mg p.o. b.i.d. - continue home dose rifaximin 550 mg p.o. b.i.d. Abdominal pain - KUB neg for acute process - cont ondansetron PRN - CT AP: neg for acute process; known liver cirrhosis - cont simethicone - RUQ US: fatty liver disease with cirrhosis. Patient discharged to SNF. Discharge Details Physical Exam at Discharge: Discharge Condition: fair Pulse: 71 Resp: 16 BP: 111/80 Temp: 36.5 ??C (97.7 ??F) Weight: 90.6 kg (199 lb 11.8 oz) Pertinent Exam Findings at Discharge: Physical Exam Vitals reviewed. Constitutional: Appearance: He is well-developed. HENT: Head: Normocephalic and atraumatic. Eyes: Extraocular Movements: Extraocular movements intact. Pupils: Pupils are equal, round, and reactive to light. Cardiovascular: Rate and Rhythm: Normal rate and regular rhythm. Pulses: Carotid pulses are 2+ on the right side and 2+ on the left side. Radial pulses are 2+ on the right side and 2+ on the left side. Dorsalis pedis pulses are 2+ on the right side and 2+ on the left side. Posterior tibial pulses are 2+ on the right side and 2+ on the left side. Heart sounds: Normal heart sounds. Pulmonary: Effort: Pulmonary effort is normal. Breath sounds: Normal breath sounds. Abdominal: General: Bowel sounds are normal. Palpations: Abdomen is soft. Musculoskeletal: General: Normal range of motion. Cervical back: Normal range of motion and neck supple. Skin: General: Skin is warm. Capillary Refill: Capillary refill takes less than 2 seconds. Neurological: General: No focal deficit present. Mental Status: He is alert and oriented to person, place, and time. Psychiatric: Mood and Affect: Mood normal. Discharge Disposition: Discharge to SNF Code Status at Discharge: Prior Active Issues & Recommended Plan for Follow-up: Allergies: Mushroom and Peanut Discharge Medications: Your medication list CONTINUE taking these medications Instructions Last Dose Given Next Dose Due acetaminophen 500 mg tablet Commonly known as: TYLENOL Take 2 tablets (1,000 mg total) by mouth every 8 (eight) hours as needed for pain baclofen 10 mg tablet Commonly known as: LIORESAL Take 1.5 tablets (15 mg total) by mouth 3 (three) times a day busPIRone 5 mg tablet Commonly known as: BUSPAR Take 1 tablet (5 mg total) by mouth 2 (two) times a day calcium carbonate 500 mg (200 mg elemental calcium) chewable tablet Commonly known as: TUMS Take 1 tablet/chew tab (500 mg total) by mouth 3 (three) times a day with meals cholecalciferol 5,000 unit capsule Commonly known as: VITAMIN D-3 Take 1 capsule (5,000 Units total) by mouth daily diclofenac sodium 1 % gel Commonly known as: VOLTAREN Apply 2 g topically 4 (four) times a day as needed (pain) Enulose 10 gram/15 mL solution Generic drug: lactulose Take 30 mL (20 g total) by mouth 3 (three) times a day ferrous sulfate 325 mg (65 mg of elemental iron) tablet Take 1 tablet (325 mg total) by mouth daily folic acid 1 mg tablet Commonly known as: FOLVITE Take 1 tablet (1 mg total) by mouth daily furosemide 40 mg tablet Commonly known as: LASIX Take 1 tablet (40 mg total) by mouth 2 (two) times a day gabapentin 400 mg capsule Commonly known as: NEURONTIN Take by mouth 3 (three) times a day hydrOXYzine 25 mg tablet Commonly known as: ATARAX Take 1 tablet (25 mg total) by mouth 3 (three) times a day melatonin tablet Take 2 tablets (6 mg total) by mouth nightly as needed ondansetron 4 mg tablet Commonly known as: ZOFRAN Take 1 tablet (4 mg total) by mouth every 8 (eight) hours as needed for nausea or vomiting potassium chloride ER 20 mEq CR tablet Commonly known as: KLOR-CON Take 1 tablet (20 mEq total) by mouth daily propranoloL 10 mg tablet Commonly known as: INDERAL Take 1 tablet (10 mg total) by mouth 2 (two) times a day QUEtiapine 25 mg tablet Commonly known as: SEROquel Take 0.5 tablets (12.5 mg total) by mouth 3 (three) times a day sertraline 50 mg tablet Commonly known as: ZOLOFT Take 1 tablet (50 mg total) by mouth every morning spironolactone 100 mg tablet Commonly known as: ALDACTONE Take 1 tablet (100 mg total) by mouth daily sucralfate 100 mg/mL suspension Commonly known as: CARAFATE Take 10 mL (1 g total) by mouth 3 (three) times a day thiamine 100 mg tablet Commonly known as: VITAMIN B1 Take 1 tablet (100 mg total) by mouth daily traMADoL 50 mg tablet Commonly known as: ULTRAM Take 1 tablet (50 mg total) by mouth every 6 (six) hours traZODone 50 mg tablet Commonly known as: DESYREL Take 1 tablet (50 mg total) by mouth nightly Xifaxan 550 mg tablet Generic drug: rifAXIMin Take 1 tablet (550 mg total) by mouth 2 (two) times a day Time Spent in Discharge Process: I have spent 35 minutes on discharge planning activities. Time spent was on Coordination of care, Follow up , Counselling with patient/family, discharge exam, and parent/patient education Test Results Pending at Discharge (If Blank, None Found): Operative Procedures Performed (If Blank, None Found): Outpatient Follow-Up: Contact Information for Follow-ups Major Dotson MD Specialty: Internal Medicine [address] [place] [address] Next Steps: Follow up Comments: Follow up with established provider: 1 week Questions: To provider: MAJOR DOTSON Kamran Ul Haq, MD Specialty: Internal Medicine Relationship: Referring Physician [address] [place] [address] Next Steps: Follow up Comments: Follow up with established provider: Other (specify) as previously scheduled Questions: To provider: HARPAL LOPEZ Charles W., MD Specialty: Internal Medicine Relationship: PCP - General [address] [place] [address] Next Steps: Follow up Please schedule an appointment with the following provider(s): Major Dotson MD [address] [place] [address] Harpal Lopez MD [address] [place] [address] Major Dotson MD [place] [place] [address] ANCILLARY INFORMATION Other Procedures & Diagnostic Tests: Transthoracic Echo (TTE) Complete W Doppler/CF Result Date: 09/29/2023 Adult Echocardiogram + + :Name: LOVE DIAZ Study Date: 09/29/2023 Status: [facility] : : Patient Location: [facility] 2 CTR^[id number]^Height: 67 in : : Weight: 193 lbBP: 144/87 mmHg: :: 1985 Gender: Male BSA: 2.0 m2 : :Reason For Study: chest pain : :Ordering Physician: : :ISIDRA VEGA : : : :Performed By: Jimmy Banegas, : :MELISSA, RVT : +-- + Procedure A two-dimensional transthoracic echocardiogram with color flow and Doppler was performed. Left Ventricle Left ventricular chamber size is normal. There is normal left ventricular wall thickness. Left ventricular systolic function appears to be normal. Ejection Fraction = 55-60%. Technically inadequate to evaluate wall motion abnormalities. No obvious regional wall motion abnormalities noted. Right Ventricle The right ventricle is normal in size and function. Atria The left atrial size is normal. Right atrial size is normal. Atrial septum not well seen. Mitral Valve The mitral valve is normal. There is no evidence of mitral valve prolapse. There is no mitral valve stenosis. There is no mitral regurgitation noted. Tricuspid Valve The tricuspid valve is not well visualized. No tricuspid regurgitation. Cannot assess RVSP due to lack of sufficient TR jet. Aortic Valve The aorticvalve is not well visualized. Difficult to assess number of leaflets. No aortic stenosis . No aortic regurgitation is present. Pulmonic Valve The pulmonic valve is not well seen, but is grossly normal. Trace pulmonic valvular regurgitation. Great Vessels The aortic root is normal size. Pericardium There is no pericardial effusion. Diastology E to A reversal suggestive of abnormal relaxation during early diastole. E/E prime ratio is <8 suggesting normal pulmonary wedge pressure and no LV diastolic dysfunction. Interpretation Summary Left ventricular systolic function appears to be normal. Ejection Fraction = 55-60%. Technically inadequate to evaluate wall motion abnormalities. Trace pulmonic valvular regurgitation. E to A reversal suggestive of abnormal relaxation during early diastole. + + :Measurements with Normals : :IVSd: (0.6-1.2 LVIDd: (3.5-5.7 Ao root diam: (2.0- 3.7 : :0.88 cm cm) 4.2 cm cm) 2.3 cm cm) : :LVPWd: (0.6-1.1 LVIDs: (3.1-4.6 LA dimension: (1.9-4.0 : :0.76 cm cm) 2.8 cm cm) 3.0 cm cm) : + + MMode/2D Measurements & Calculations FS: 34.2 % Ao root area: 4.2 cm2 EDV(Teich): 80.4 ml ESV(Teich): 29.3 ml Doppler Measurements & Calculations MV E max debora: Ao V2 max: LV V1 max PG: PA V2 max: 60.0 cm/sec 125.0 cm/sec 3.8 mmHg 104.0 cm/sec MV A max debora: Ao max P.3 mmHgLV V1 max: PA max P.3 mmHg 67.9 cm/sec 97.0 cm/sec MV E/A: 0.88 RV V1 max: 78.6 cm/sec Electronically signed by: Jinny Zepeda MD 09/29/2023 05:41 PM XR Chest 1 Vw Portable Result Date: 09/28/2023 EXAM DESCRIPTION: XR CHEST 1 VIEW REASON FOR STUDY: Alcohol withdrawal Pt c/o CP since this morning. Pt reports drinking heavy for 7 days. Pt has hx liver failure. AOx4. TECHNIQUE: Single radiographic view(s) of the chest. COMPARISON: 11/08/2021. FINDINGS: LUNGS: No focal opacity, pleural effusion,or pneumothorax. HEART/MEDIASTINUM: Cardiac silhouette normal in size. Mediastinal and hilar contours appear normal. LINES/TUBES: None. BONES: No acute osseous abnormality. IMPRESSION: No acute cardiopulmonary abnormality. THIS IS AN ELECTRONICALLY VERIFIED FINAL REPORT 09/28/2023 11:37 PM - Electronically signed by Rolando Jade M.D., D.O. Rolando Jade M.D., Sid.O. T: Report ID: [id number] Reading Location: [place] [address] Recent Labs: Recent Labs Lab Units 10/04/23 0443 WBC K/cumm 7.1 HEMOGLOBIN g/dL 13.1 HEMATOCRIT % 38.0* PLATELETS K/cumm 152 Recent Labs Lab Units 10/04/23 0443 WBC K/cumm 7.1 HEMOGLOBIN g/dL 13.1 HEMATOCRIT % 38.0* PLATELETS K/cumm 152 NEUTROS PCT % 53.7 LYMPHS PCT % 23.5 MONOS PCT % 17.6 EOS PCT % 3.1 Recent Labs Lab Units 10/04/23 044 SODIUM mmol/L 138 POTASSIUM PLASMA mmol/L 3.7 CHLORIDE mmol/L 104 CO2 mmol/L 24 BUN SERUM mg/dL 10 CREATININE mg/dL 0.60* [id number] mL/min/1.73 m2 126 GLUCOSE mg/dL 92 CALCIUM mg/dL 8.9 ALBUMIN g/dL 3.4* Recent Labs Lab Units 10/04/23442 SODIUM mmol/L 138 POTASSIUM PLASMA mmol/L 3.7 CHLORIDE mmol/L 104 CO2 mmol/L 24 ANIONGAP mmol/L 10 GLUCOSE mg/dL 92 BUN SERUM mg/dL 10 CREATININE mg/dL 0.60* CALCIUM mg/dL 8.9 ALBUMIN g/dL 3.4* ALK PHOS Units/L 83 ALT Units/L 37 AST Units/L 28 BILIRUBIN TOTAL mg/dL 0.3 Recent Labs Lab Units 10/04/23442 ALK PHOS Units/L 83 BILIRUBIN TOTAL mg/dL 0.3 BILIRUBIN DIRECT mg/dL <0.2 TOTAL PROTEIN g/dL 6.2* ALT Units/L 37 AST Units/L 28 Lab Results Component Value Date GLUCOSE 92 10/04/2023 GLUCOSE 105 10/03/2023 GLUCOSE 98 10/02/2023 Implant: Implants No active implants to display in this view. General Precautions (If Blank, None Found): Weight Bearing Restrictions: (Reports that he is WBAT on L LE.) Weight Bearing Restrictions: (Reports that he is WBAT on L LE.) Isolation Status: No active isolations Nutritional Status and in-house recommendations: Anticoagulation Indication: INR: 09/30/2023: 1.1 Warfarin Administrations (last 168 hours) None Oxygen Status: No data found. Wound Care Instructions Other Instructions Call provider for: Temperature -Temperature greater than 101 degrees F Call provider for: difficulty breathing or chest pain Call provider for: hives Call provider for: persistent dizziness or light-headedness Call provider for: persistent nausea or vomiting Call provider for: redness, tenderness, or signs of infection (pain, swelling, redness, odor or green/yellow discharge around incision site) Call provider for: severe uncontrolled pain Call provider for: headache, visual disturbances, weakness and speech changes Active LDAs (If Blank, None Found): Patient Emergency Contact: Primary Emergency Contact: MODESTO DIAZ Immunization Status at Discharge Immunization History Administered Date(s) Administered Moderna SARS-CoV-2 Monovalent Vaccination (12+ YRS) 08/14/2021 Negrito Crowley MD GRINDER TENDER documented in this encounter Discharge Instructions * Discharge Instr - Diet* Yuko Ham RD - 09/29/2023 3:38 PM MEAL GRINDER TENDER Recommend to eat a generally healthy diet with foods that include a variety of fruits, vegetables, whole-grain breads, low-fat dairy products, beans, lean meats, and fish. Limit fast food, sugary drinks, excess salt, and desserts. Limit sugary drinks like lemonade, regular soda, Gatorade, and sweettea and drink water throughout the day. Call [phone] to speak with a dietitian about any diet related concerns. Additional resources are available online from the Academy of Nutrition and Dietetics at www.eatright.org GRINDER TENDER * Attachments The following attachments cannot be sent through Care Everywhere. * Alcohol Withdrawal (Discharge Care) (Armenian) documented in this encounter Medications at Time [...] day 08/24/2022 documented as of this encounter Discharge Disposition Disposition Code Departure Means Destination Comment s Discharge to SNF documented in this encounter Progress Notes * Colleen Mello RN - 10/05/2023 1:06 PM CST Appeal of Discharge Outcome [facility] agrees with hospital Pt to be discharged 10/07 by noon Pt discharged prior to outcome on 10/05 @ 1306 Documents scanned to [employer] GRINDER TENDER * Jazmín Leonardo - 10/05/2023 12:10 PM CST PRS f/u with PT before d/c. PRS and pt talked about how [facility] fresh start because he was nervous [facility] would treat him different. PT sstated that he wants to remain sober, prs and pt discussed how to avoid triggers. Jazmín Leonardo, Peer [facility] [phone] GRINDER TENDER * Sheridan Zheng, ALFREDO - 10/05/2023 10:19 AM CST CARE COORDINATION DISCHARGE PLANNING New SNF Spoke with Carolina at facility and patient can admit today. Bedside RN to call report and fax orders to numbers listed below. Pt and family aware of plans [facility] [address] [place] [address] TRANSPORTATION: Transportation provided by van and molded goods spot picker is anticipated at 1300. ANTICIPATED D/C DATE: today CM will continue to follow for progression of care, if further needs for discharge or barriers to care arise, please reach out to care management team. Sheridan Zheng RN 10/05/2023 10:19 AM GRINDER TENDER * Donal Cabrera MD - 10/04/2023 3:46 PM CST GENERAL INTERNAL MEDICINE DAILY PROGRESS NOTE Admit Date: 09/28/2023 LOS: 5 Brief Hospital Course: 38M with hx significant for alcohol dependence, alcohol abuse, and cirrhosis presented with alcoholintoxication and was admitted for alcohol withdrawal treatment. He had been at [facility] and Rehab after sustaining a hip fracture and was on a 7-day leave when he started drinking alcohol heavily (20- 30 beers daily). Last drink was one day COO. Pt was started on CIWA protocol. Pt reportedhallucinations and tremors. Pt reported abdominal pain. KUB neg for acute process. CT AP was neg. RUQ US revealed only fatty liver disease with cirrhosis. Subjective: Interval History: RUQ US revealed only fatty liver disease with cirrhosis. Pt is medically clear for discharge but herefuses and has decided to appeal. Objective: Patient Vitals for the past 8 hrs: BP Temp Pulse Resp SpO2 10/04/23 1147 126/96 36.5 ??C (97.7 ??F) 77 18 100 % 10/04/23 1030 -- -- 72 -- -- Intake/Output Summary (Last 24 hours) at 10/04/2023 1546 Last data filed at 10/04/2023 1305 Gross per 24 hour Intake 120 ml Output 1250 ml Net -1130 ml BP 126/96 (BP Location: Right arm, Patient Position: Sitting) Pulse 77 Temp 36.5 ??C (97.7 ??F) Resp 18 Ht 170.2 cm (5' 7.01 ) Wt 90.9 kg (200 lb 4.8 oz) SpO2 100% BMI 31.36 kg/m?? Physical Exam: Gen: NAD, A&Ox4 HEENT: MMM CV: RRR Resp: nonlabored breathing Abd: nondistended Extremities: No edema Skin: warm, dry Neuro: grossly intact Current Facility-Administered Medications Medication Dose Route Frequency Provider Last Rate Last Admin cloNIDine (CATAPRES-TTS) 0.2 mg/24 hr patch weekly 1 patch 1 patch transdermal Weekly Isidra Vega NP 1 patch at 09/29/23 0004 influenza quadrivalent [id number] (FLULAVAL,FLUARIX,FLUZONE) 60 mcg (15 mcg x 4)/0.5 mL vaccine (STANDARD age 6 months and up) 0.5 mL 0.5 mL intramuscular During hospitalization Isidra Vega NP LORazepam (ATIVAN) tablet 1 mg 1 mg oral Q4H PRN Isidra Vega NP 1 mg at 10/03/23 1222 Or LORazepam (ATIVAN) tablet 1 mg 1 mg oral Q2H PRN Isidra Vega NP 1 mg at 10/02/23 1752 Or LORazepam (ATIVAN) injection 1 mg 1 mg intravenous Q1H PRN Isidra Vega NP 1 mg at 09/29/23 1507 Or LORazepam (ATIVAN) injection 1 mg 1 mg intramuscular Q1H PRN Isidra Vega NP Or LORazepam (ATIVAN) injection 2 mg 2 mg intravenous Q1H PRN Isidra Vega NP Or LORazepam (ATIVAN) injection 2 mg 2 mg intramuscular Q1H PRN Isidra Vega NP naloxone (NARCAN) 0.4 mg/mL injection 0.4 mg 0.4 mg intravenous Q10 Min PRN Isidra Vega NP nicotine (NICODERM CQ) 21 mg patch 24 hour 1 patch 1 patch transdermal Daily PRN Isidra Vega NP 1 patch at 10/03/23 1624 ondansetron (ZOFRAN) injection 4 mg 4 mg intravenous Q6H PRN Donal Cabrera MD 4 mg at 10/04/23 0807 ondansetron ODT (ZOFRAN-ODT) disintegrating tablet 4 mg 4 mg oral Q6H PRN Donal Cabrera MD oxyCODONE (ROXICODONE) tablet 5 mg 5 mg oral Q6H PRN Donal Cabrera MD 5 mg at 10/04/[address] (PROTONIX) extended release tablet 40 mg 40 mg oral BID Donal Cabrera MD 40 mg at 10/04/23 0807 polyethylene glycol (MIRALAX) packet 17 g 17 g oral Daily PRN Isidra Vega NP propranoloL (INDERAL) tablet 10 mg 10 mg oral BID Isidra Vega NP 10 mg at 10/04/23 0806 QUEtiapine (SEROquel) tablet 12.5 mg 12.5 mg oral TID Isidra Vega NP 12.5 mg at 10/04/23 0806 ramelteon (ROZEREM) tablet 8 mg 8 mg oral Nightly PRN Isidra Vega NP 8 mg at 10/03/232112 rifAXIMin (XIFAXAN) tablet 550 mg 550 mg oral BID Isidra Vega NP 550 mg at 10/04/23 0806 sertraline (ZOLOFT) tablet 50 mg 50 mg oral QAM Isidra Vega NP 50 mg at 10/04/23 0807 simethicone (MYLICON) chewable tablet 160 mg 160 mg oral BID PRN Donal Cabrera MD 160 mg at 10/03/23 1624 sodium chloride 0.9% infusion 75 mL/hr intravenous Continuous Donal Cabrera MD 75 mL/hr at 10/04/23 1254 75 mL/hr at 10/04/23 1254 sucralfate (CARAFATE) 100 mg/mL oral suspension 1 g 1 g oral TID with meals Isidra Vega NP 1 g at 10/04/23 1146 Data Review: Recent Results (from the past 24 hour(s)) Basic metabolic panel Collection Time: 10/04/23 4:43 AM Result Value Ref Range Sodium 138 135 - 145 mmol/L Potassium, pl 3.7 3.3 - 4.9 mmol/L Chloride 104 97 - 110 mmol/L CO2 24 22 - 32 mmol/L Anion gap 10 2 - 15 mmol/L BUN 10 6 - 25 mg/dL Creatinine 0.60 (L) 0.80 - 1.30 mg/dL Glucose 92 70 - 199 mg/dL Calcium 8.9 8.5 - 10.3 mg/dL Hepatic function panel Collection Time: 10/04/23 4:43 AM Result Value Ref Range Bilirubin, total 0.3 0.1 - 1.2 mg/dL Bilirubin, direct <0.2 0.1 - 0.3 mg/dL Protein, pl 6.2 (L) 6.5 - 8.5 g/dL Albumin 3.4 (L) 3.5 - 5.0 g/dL Alk phos 83 40 - 130 Units/L ALT 37 7 - 55 Units/L AST 28 10 - 50 Units/L CBC with auto differential Collection Time: 10/04/23 4:43 AM Result Value Ref Range WBC 7.1 3.8 - 9.9 K/cumm Hgb 13.1 13.0 - 17.5 g/dL Hct 38.0 (L) 38.9 - 50.3 % Plt 152 150 - 400 K/cumm MPV 10.8 9.1 - 12.3 fL RBC 3.98 (L) 4.30 - 5.80 M/cumm MCV 95.5 81.3 - 96.4 fL MCH 32.9 27.1 - 33.3 pg MCHC 34.5 32.3 - 35.7 g/dL RDW CV 14.9 11.1 - 14.9 % RDW SD 48.6 (H) 35.7 - 48.1 fL NRBC abs 0.00 0.00 - 0.01 K/cumm Differential, auto Collection Time: 10/04/23 4:43 AM Result Value Ref Range Neutrophil abs 3.8 1.5 - 6.5 K/cumm Imm gran abs 0.1 0.0 - 0.1 K/cumm Lymphocyte abs 1.7 0.8 - 3.3 K/cumm Monocyte abs 1.3 (H) 0.2 - 0.8 K/cumm Eosinophil abs 0.2 0.0 - 0.5 K/cumm Basophil abs 0.1 0.0 - 0.1 K/cumm Neutrophil pct 53.7 % Imm gran pct 1.3 % Lymphocyte pct 23.5 % Monocyte pct 17.6 % Eosinophil pct 3.1 % Basophil pct 0.8 % eGFR Collection Time: 10/04/23 4:43 AM Result Value Ref Range eGFR 126 mL/min/1.73 m2 Radiographic Studies: Transthoracic Echo (TTE) Complete W Doppler/CF Result Date: 09/29/2023 Narrative: Adult Echocardiogram + + :Name: LOVE DIAZ Ashley Study Date: 09/29/2023 Status: [facility] : : Patient Location: [facility] 2 [id number]^MHHeight: 67 in : : Weight: 193 lbBP: 144/87 mmHg: :: 1985 Gender: Male BSA: 2.0 m2 : :Reason For Malick dy: chest pain : :Ordering Physician: : :ISIDRA VEGA : : : :Performed By: Jimmy Banegas, : :RCS, RVT : + + Procedure A two-dimensional transthoracic echocardiogram with color flow and Doppler was performed. Left Ventricle Left ventricular chamber size is normal. There is normal left ventricular wall thickness. Left ventricular systolic function appears to be normal. Ejection Fraction = 55-60%. Technically inadequate to evaluate wall motion abnormalities. No obvious regional wall motion abnormalities noted. Right Ventricle The right ventricle is normal in size and function. Atria The left atrial size is normal. Right atrial size is normal. Atrial septum not well seen. Mitral Valve The m itral valve is normal. There is no evidence of mitral valve prolapse. There is no mitral valve stenosis. There is no mitral regurgitation noted. Tricuspid Valve The tricuspid valve is not well visualized. No tricuspid regurgitation. Cannot assess RVSP due to lack of sufficient TR jet. Aortic Valve The aortic valve is not well visualized. Difficult to assess number of leaflets. No aortic stenosis . No aortic regurgitation is present. Pulmonic Valve The pulmonic valve is not well seen, but is grossly normal. Trace pulmonic valvular regurgitation. Great Vessels The aortic root is normal size. Pericardium There is no pericardial effusion. Diastology E to A reversal suggestive of abnormal relaxat ion during early diastole. E/E prime ratio is <8 suggesting normal pulmonary wedge pressure and no LV diastolic dysfunction. Interpretation Summary Left ventricular systolic function appears to benormal. Ejection Fraction = 55-60%. Technically inadequate to evaluate wall motion abnormalities. Trace pulmonic valvular regurgitation. E to A reversal suggestive of abnormal relaxation during earlydiastole. + + :Measurements with Normals : :IVSd: (0.6-1.2 LVIDd: (3.5-5.7 Ao root diam: (2.0- 3.7 : :0.88 cm cm) 4.2 cm cm)2.3 cm cm) : :LVPWd: (0.6-1.1 LVIDs: (3.1-4.6 LA dimension: (1.9-4.0 : :0.76 cm cm) 2.8 cm cm) 3.0cm cm) : + + MMode/2D Measurements & Calculations FS: 34.2 % Ao root area: 4.2 cm2 EDV(Teich): 80.4 ml ESV(Teich): 29.3ml Doppler Measurements & Calculations MV E max debora: Ao V2 max: LV V1 max PG: PA V2 max: 60.0 cm/sec 125.0 cm/sec 3.8 mmHg 104.0 cm/sec MV A max debora: Ao max P.3 mmHgLV V1 max: PA max P.3mmHg 67.9 cm/sec 97.0 cm/sec MV E/A: 0.88 RV V1 max: 78.6 cm/sec Electronically signed by: Jinny Zepeda MD 09/29/2023 05:41 PM XR Chest 1 Vw Portable Result Date: 09/28/2023 Narrative: EXAM DESCRIPTION: XR CHEST 1 VIEW REASON FOR STUDY: Alcohol withdrawal Pt c/o CP since this morning. Pt reports drinking heavy for 7 days. Pt has hx liver failure. AOx4. TECHNIQUE: Single radiographic view(s) of the chest. COMPARISON: 11/08/2021. FINDINGS: LUNGS: No focal opacity, pleural effusion, or pneumothorax. HEART/MEDIASTINUM: Cardiac silhouette normal in size. Mediastinal and hilar contours appear normal. LINES/TUBES: None. BONES: No acute osseous abnormality. IMPRESSION: No acute cardiopulmonary abnormality. THIS IS AN ELECTRONICALLY VERIFIED FINAL REPORT 09/28/2023 11:37 PM - Electronically signed by Sid Stacy M.D..Tianna. Rolando Jade M.D., BinOKaran T: Report ID: [id number] Reading Location: [place] [id number] Assessment and Plan: Alcohol dependence c/b withdrawal syndrome - patient [facility], was out on leave and began to consume alcohol heavily with approximately 20-30 beers per day - CIWA q.4 hours - Ativan per CIWA protocol - continue home dose Seroquel 12.5 mg p.o. t.i.d. - continue home dose Zoloft 50 mg p.o. daily - TTE: EF 55-60% - continuous telemetry monitoring with SpO2 monitoring - fall precautions - seizure precautions - DC IV NS Hyponatremia - resolved Hepatic cirrhosis - continue home dose propranolol 10 mg p.o. b.i.d. - continue home dose rifaximin 550 mg p.o. b.i.d. Abdominal pain - KUB neg for acute process - cont ondansetron PRN - CT AP: neg for acute process; known liver cirrhosis - cont simethicone - RUQ US: fatty liver disease with cirrhosis. DVT Prophylaxis: SCDs Code Status: Full Code Disposition: Pt is medically clear for discharge but he refuses and has decided to appeal. My total encounter time was 29 minutes which was spent in the activities documented in the note. This includes time spent prior to the visit and after the visit in direct care of the patient. This time does not include time spent in any separately reportable services. GRINDER TENDER * Estela Jackson PTA - 10/04/2023 11:15 AM CST Physical Therapy 10/04/23 1115 PT Last Visit PT Missed Visit Reason Procedure/testing/appointment (Pt off floor for testing) GRINDER TENDER * Jazmín Leonardo - 10/04/2023 9:24 AM CST PRS went to follow up with pt after the weekend. PT started shaking when PRS came all the way into the room and stated he feels worse today than when he first came in and requested PRS come back later Jazmín Leonardo, Peer [facility] [phone] GRINDER TENDER * Yuko Ham RD - 10/04/2023 8:44 AM CST NUTRITION ASSESSMENT Nutrition Status: Patient does not meet ASPEN criteria for malnutrition at this time. REASON FOR ASSESSMENT: Follow Up Encounter Date: 10/04/23 10:46 AM Admission Date: 09/28/2023 LOS: 5 days HPI: Patient is a 38 y.o. male with history of alcoholism and cirrhosis. Patient presents to the emergency department with alcohol withdrawal. Patient had been at [facility] and rehab but was on a7 day leave when he began drinking heavily. Patient states he has been drinking 20-30 beers per day. He was at [facility] and rehab after sustaining a hip fracture. Objective Past Medical History: Diagnosis Date Alcoholism (CMS/HCC) (HCC) Cirrhosis (HCC) Gastric reflux Peptic ulceration History reviewed. No pertinent surgical history. Social History Tobacco Use Smoking status: Every Day Packs/day: 0.25 Years: 18.00 Additional pack years: 0.00 Total pack years: 4.50 Types: Cigarettes Smokeless tobacco: None Substance and Sexual Activity Drug use: Yes Types: Alcohol Comment: 20-30 beers/day Sexual activity: Defer Alcohol Use: Alcohol Misuse (09/29/2023) AUDIT-C Frequency of Alcohol Consumption: Monthly or less Average Number of Drinks: 10 or more Frequency of Binge Drinking: Daily or almost daily MEDICATION/LAB REVIEW: Scheduled Meds: cloNIDine, 1 patch, transdermal, Weekly pantoprazole DR, 40 mg, oral, BID propranoloL, 10 mg, oral, BID QUEtiapine, 12.5 mg, oral, TID rifAXIMin, 550 mg, oral, BID sertraline, 50 mg, oral, QAM sucralfate, 1 g, oral, TID with meals Continuous Infusions: sodium chloride 0.9%, 75 mL/hr, Last Rate: 75 mL/hr (10/04/23 0000) PRN Meds: influenza quadrivalent [id number] LORazepam OR LORazepam OR LORazepam OR LORazepam OR LORazepam OR LORazepam naloxone nicotine ondansetron ondansetron ODT oxyCODONE polyethylene glycol ramelteon simethicone Recent Labs Lab Units 10/04/2344209/30/23 0613 09/29/23 0537 SODIUM mmol/L 138 < > 134* POTASSIUM PLASMA mmol/L 3.7 < > 3.4 CHLORIDE mmol/L 104 < > 99 CO2 mmol/L 24 < > 22 BUN SERUM mg/dL 10 < > 10 CREATININE mg/dL 0.60* < > 0.60* [id number] mL/min/1.73 m2 126 < > 126 CALCIUM mg/dL 8.9 < > 8.2* ALBUMIN g/dL 3.4* < > 3.7 PHOSPHORUS PLASMA mg/dL -- -- 3.2 MAGNESIUM mg/dL -- -- 1.9 < > = values in this interval not displayed. Recent Labs Lab Units 10/04/23 0443 10/03/23 0229 10/02/23 0514 10/01/23 0520 09/30/23 2105 09/30/23 0613 09/29/23 0537 GLUCOSE mg/dL 92 105 98 97 -- 74 75 POC GLUCOSE MONITOR mg/dL -- -- -- -- 119 -- -- ALT Date Value Ref Range Status 10/04/2023 37 7 - 55 Units/L Final AST Date Value Ref Range Status 10/04/2023 28 10 - 50 Units/L Final Alk phos Date Value Ref Range Status 10/04/2023 83 40 - 130 Units/L Final No results found for: HGBA1C , HDL , LDLCALC , CHOL , TRIG NURSING ASSESSMENT: Last BM Date: 09/30/23 Bowel Sounds (All Quadrants): Active Vincent Scale Score: 22 Vital Signs BP: (!) 148/118 (RN informed) Temp: 37 ??C (98.6 ??F) Pulse: 91 Resp: 18 SpO2: 100 % Intake/Output Summary (Last 24 hours) at 10/04/2023 1046 Last data filed at 10/04/2023 0330 Gross per 24 hour Intake 120 ml Output 900 ml Net -780 ml Adult Malnutrition Scoring Tool (MST) What diet do you follow at home?: regular Have You Recently Lost Weight Without Trying?: Yes (Comment) How Much Weight Have You Lost?: 34 lb or more Have you been eating poorly because of a decreased appetite?: No Malnutrition Screening Tool (MST) Score: 4 Within the past 12 months, you worried that your food would run out before you got the money to buymore.: Never true Within the past 12 months, the food you bought just didn't last and you didn't have money to get more.: Never true Anthropometrics Weight: 90.9 kg (200 lb 4.8 oz) Admission Weight : 87.6 kg Weight Change: -0.24 kg (-0.53 lbs) IBW/kg (Calculated) : 67.2 kg Height: 170.2 cm (5' 7.01 ) Weight in (lb) to have BMI = 25: 159.3 BMI (Calculated): 31.4 Wt Readings from Last 10 Encounters: 10/04/23 90.9 kg (200 lb 4.8 oz) 08/25/22 85.7 kg (189 lb) 11/08/21 88.5 kg (195 lb) ESTIMATED NEEDS: Total Energy Needs: 1925 kcal Total Energy Needs + Fever Factor: 1925 Equation Chosen to Use by RD:Rashi Reis Activity Factor: 1.1 Weight Used for Equation Calculations (RD Determined): 87.6 kg(193 lb 2 oz) . Total Protein Estimated Needs (gm): 80.52 Protein Needs Based on g/k.2 Type of Weight Used for Estimated Protein : Vaughan Total Fluid Estimated Needs: 2012 Fluid Needs Based on : 30 ml/kg Type of Weight Used for EstimatedFluid Needs: Vaughan Dietary Orders (From admission, onward) Start Ordered 09/30/23 0700 Oral Nutrition Supplements Select Supplement: Ensure PLUS High Protein - Any Flavor; Quantity (# of cans): 1 can With Breakfast Question Answer Comment Select Supplement: Ensure PLUS High Protein - Any Flavor Quantity (# of cans): 1 can 09/29/23 1452 09/29/23 1314 Adult Diet Regular Diet effective now Question: (MHB/MHE) Diet type Answer: Regular 09/29/23 1314 Allergies: Reviewed, Mushroom, Peanut - unknown reactions IMPRESSION: 09/29: RD consult for MST score of 4 (wt loss 34 lb or more). Met with Love who reports he just ordered a light dinner and notes I hope I can keep it down . Reports he was eating well at [facility] but has been eating poorly and struggling with nausea since he left (~1 week ago). Per H&P,was drinking 20- 30 beers per day. He reports he lost 20-25# during that week and thinks he is down to 170#. Admit weight of 140# was stated, not actual. Unknown weight method for 193# but visually appears accurate. Per chart review, weighed 189-199# for the past year up until ~6 weeks ago. Denies diarrhea or constipation. Last BM 09/27. He is interested in using protein supplements while he is feeling poorly and requested that protein juice I was getting in rehab . Reports he usually skips breakfast and agreed to Ensure Plus at breakfast, high protein juice with lunch and dinner. Patient is from home. Discharge pending hospital course. 10/04: Updated weights 191-200# suggest stable weight this past year. Per nursing documentation, eating 75-100% of meals. Love sitting on side of the bed. Reports appetite is up and down . Discussed updated weights confirming he has not lost a significant amount of weight as he thought. Will discontinue high protein juices at lunch and dinner but continue the Ensure daily at breakfast. Per I/O's, last BM 10/03. Denies any nutrition concerns at this time. LUCYEN MALNUTRITION ASSESSMENT: Date of completion: 09/29/23 ASPEN/AND Malnutrition Screening: Patient does not meet malnutrition criteria NUTRITION FOCUSED PHYSICAL EXAM: N/A NUTRITION DIAGNOSIS: Nutrition Diagnosis 1: Inadequate oral intake Related to: Other (comment), Loss of appetite, Vomiting (ETOH replacing more nutrient dense foods) Evidenced by: Patient interview, Inconsistent PO intakes INTERVENTION(S): Summary: Assess for nutrition changes, Education, nutrition, Encouragement, Initial assessment, Medical food supplement, Regular weights Ensure Plus High Protein daily with breakfast. Daily weights ordered per MNT protocol - will help confirm any recent weight changes. GOAL(S): Oral intake to meet 75% estimated nutritional needs by next assessment, Tolerance of medical food supplement by next assessment MONITORING/EVALUATION: Appetite, Discharge plans, PO intake, Stool patterns, Supplement tolerance, Weight changes Diet Instructions Recommend to eat a generally healthy diet with foods that include a variety of fruits, vegetables, whole-grain breads, low-fat dairy products, beans, lean meats, and fish. Limit fast food, sugary drinks, excess salt, and desserts. Limit sugary drinks like lemonade, regular soda, Gatorade, and sweettea and drink water throughout the day. Call [phone] to speak with a dietitian about any diet related concerns. Additional resources are available online from the Academy of [employer] and Dietetics at www.eatright.org Yuko Ham RD GRINDER TENDER * Donal Cabrera MD - 10/03/2023 5:16 PM CST GENERAL INTERNAL MEDICINE DAILY PROGRESS NOTE Admit Date: 09/28/2023 LOS: 4 Brief Hospital Course: 38M with hx significant for alcohol dependence, alcohol abuse, and cirrhosis presented with alcoholintoxication and was admitted for alcohol withdrawal treatment. He had been at [facility] after sustaining a hip fracture and was on a 7-day leave when he started drinking alcohol heavily (20- 30 beers daily). Last drink was one day COO. Pt was started on CIWA protocol. Pt reportedhallucinations and tremors. Pt reported abdominal pain. KUB neg for acute process. CT AP was neg. RUQ US pending. Subjective: Interval History: Pt did not report abdominal pain today. He continues to report hallucinations and shaking at estimates he is about 70% better. Objective: Patient Vitals for the past 8 hrs: BP Temp Temp src Pulse Resp SpO2 10/03/23 1521 104/92 36.6 ??C (97.9 ??F) Oral 80 18 100 % 10/03/23 1118 110/91 36.4 ??C (97.5 ??F) Oral 84 18 97 % Intake/Output Summary (Last 24 hours) at 10/03/2023 1716 Last data filed at 10/03/2023 1200 Gross per 24 hour Intake 240 ml Output 1675 ml Net -1435 ml BP 104/92 (BP Location: Left arm, Patient Position: Sitting) Pulse 80 Temp 36.6 ??C (97.9 ??F) (Oral) Resp 18 Ht 170.2 cm (5' 7.01 ) Wt 91.1 kg (200 lb 13.4 oz) SpO2 100% BMI 31.45 kg/m?? Physical Exam: Gen: NAD, A&Ox4 HEENT: MMM CV: RRR Resp: CTAB Abd: soft, RUQ & epigastric ttp Extremities: No edema Skin: warm, dry Neuro: grossly intact, tremulous Current Facility-Administered Medications Medication Dose Route Frequency Provider Last Rate Last Admin cloNIDine (CATAPRES-TTS) 0.2 mg/24 hr patch weekly 1 patch 1 patch transdermal Weekly Isidra Vega NP 1 patch at 09/29/23 0004 influenza quadrivalent [id number] (FLULAVAL,FLUARIX,FLUZONE) 60 mcg (15 mcg x 4)/0.5 mL vaccine (STANDARD age 6 months and up) 0.5 mL 0.5 mL intramuscular During hospitalization Isidra Vega NP LORazepam (ATIVAN) tablet 1 mg 1 mg oral Q4H PRN Isidra Vega NP 1 mg at 10/03/23 1222 Or LORazepam (ATIVAN) tablet 1 mg 1 mg oral Q2H PRN Isidra Vega NP 1 mg at 10/02/23 1752 Or LORazepam (ATIVAN) injection 1 mg 1 mg intravenous Q1H PRN Isidra Vega NP 1 mg at 09/29/23 1507 Or LORazepam (ATIVAN) injection 1 mg 1 mg intramuscular Q1H PRN Isidra Vega NP Or LORazepam (ATIVAN) injection 2 mg 2 mg intravenous Q1H PRN Isidra Vega NP Or LORazepam (ATIVAN) injection 2 mg 2 mg intramuscular Q1H PRN Isidra Vega NP naloxone (NARCAN) 0.4 mg/mL injection 0.4 mg 0.4 mg intravenous Q10 Min PRN Isidra Vega NP nicotine (NICODERM CQ) 21 mg patch 24 hour 1 patch 1 patch transdermal Daily PRN Isidra Vega NP 1 patch at 10/03/23 1624 ondansetron (ZOFRAN) injection 4 mg 4 mg intravenous Q6H PRN Donal Cabrera MD 4 mg at 09/30/23 1256 ondansetron ODT (ZOFRAN-ODT) disintegrating tablet 4 mg 4 mg oral Q6H PRN Donal Cabrera MD oxyCODONE (ROXICODONE) tablet 5 mg 5 mg oral Q6H PRN Donal Cabrera MD 5 mg at 10/03/[address] (PROTONIX) extended release tablet 40 mg 40 mg oral BID Donal Cabrera MD 40 mg at 10/03/23 0752 polyethylene glycol (MIRALAX) packet 17 g 17 g oral Daily PRN Isidra Vega NP propranoloL (INDERAL) tablet 10 mg 10 mg oral BID Isidra Vega NP 10 mg at 10/03/23 0752 QUEtiapine (SEROquel) tablet 12.5 mg 12.5 mg oral TID Isidra Vega NP 12.5 mg at 10/03/23 1548 ramelteon (ROZEREM) tablet 8 mg 8 mg oral Nightly PRN Isidra Vega NP rifAXIMin (XIFAXAN) tablet 550 mg 550 mg oral BID Isidra Vega NP 550 mg at 10/03/23 0752 sertraline (ZOLOFT) tablet 50 mg 50 mg oral QAM Isidra Vega NP 50 mg at 10/03/23 0752 simethicone (MYLICON) chewable tablet 160 mg 160 mg oral BID PRN Donal Cabrera MD 160 mg at 10/03/23 1624 sodium chloride 0.9% infusion 75 mL/hr intravenous Continuous Donal Cabrera MD 75 mL/hr at 10/03/23 0858 75 mL/hr at 10/03/23 0858 sucralfate (CARAFATE) 100 mg/mL oral suspension 1 g 1 g oral TID with meals Isidra Vega NP 1 g at 10/03/23 1634 Data Review: Recent Results (from the past 24 hour(s)) Basic metabolic panel Collection Time: 10/03/23 2:29 AM Result Value Ref Range Sodium 138 135 - 145 mmol/L Potassium, pl 3.9 3.3 - 4.9 mmol/L Chloride 103 97 - 110 mmol/L CO2 26 22 - 32 mmol/L Anion gap 9 2 - 15 mmol/L BUN 8 6 - 25 mg/dL Creatinine 0.60 (L) 0.80 - 1.30 mg/dL Glucose 105 70 - 199 mg/dL Calcium 9.1 8.5 - 10.3 mg/dL Hepatic function panel Collection Time: 10/03/23 2:29 AM Result Value Ref Range Bilirubin, total 0.4 0.1 - 1.2 mg/dL Bilirubin, direct <0.2 0.1 - 0.3 mg/dL Protein, pl 6.3 (L) 6.5 - 8.5 g/dL Albumin 3.3 (L) 3.5 - 5.0 g/dL Alk phos 79 40 - 130 Units/L ALT 39 7 - 55 Units/L AST 31 10 - 50 Units/L CBC with auto differential Collection Time: 10/03/23 2:29 AM Result Value Ref Range WBC 6.5 3.8 - 9.9 K/cumm Hgb 12.9 (L) 13.0 - 17.5 g/dL Hct 38.3 (L) 38.9 - 50.3 % Plt 148 (L) 150 - 400 K/cumm MPV 9.9 9.1 - 12.3 fL RBC 4.02 (L) 4.30 - 5.80 M/cumm MCV 95.3 81.3 - 96.4 fL MCH 32.1 27.1 - 33.3 pg MCHC 33.7 32.3 - 35.7 g/dL RDW CV 14.6 11.1 - 14.9 % RDW SD 46.9 35.7 - 48.1 fL NRBC abs 0.00 0.00 - 0.01 K/cumm Differential, auto Collection Time: 10/03/23 2:29 AM Result Value Ref Range Neutrophil abs 3.8 1.5 - 6.5 K/cumm Imm gran abs 0.1 0.0 - 0.1 K/cumm Lymphocyte abs 1.5 0.8 - 3.3 K/cumm Monocyte abs 0.9 (H) 0.2 - 0.8 K/cumm Eosinophil abs 0.2 0.0 - 0.5 K/cumm Basophil abs 0.1 0.0 - 0.1 K/cumm Neutrophil pct 58.9 % Imm gran pct 0.8 % Lymphocyte pct 23.0 % Monocyte pct 13.3 % Eosinophil pct 3.2 % Basophil pct 0.8 % eGFR Collection Time: 10/03/23 2:29 AM Result Value Ref Range eGFR 126 mL/min/1.73 m2 Radiographic Studies: Transthoracic Echo (TTE) Complete W Doppler/CF Result Date: 09/29/2023 Narrative: Adult Echocardiogram + + :Name: LOVE DIAZ Study Date: 09/29/2023 Status: [facility] : : Patient Location: [facility] 2 [id number]^MHHeight: 67 in : : Weight: 193 lbBP: 144/87 mmHg: :: 1985 Gender: Male BSA: 2.0 m2 : :Reason For Malick dy: chest pain : :Ordering Physician: : :ISIDRA VEGA : : : :Performed By: Jimmy Banegas, : :RCS, RVT : + + Procedure A two-dimensional transthoracic echocardiogram with color flow and Doppler was performed. Left Ventricle Left ventricular chamber size is normal. There is normal left ventricular wall thickness. Left ventricular systolic function appears to be normal. Ejection Fraction = 55-60%. Technically inadequate to evaluate wall motion abnormalities. No obvious regional wall motion abnormalities noted. Right Ventricle The right ventricle is normal in size and function. Atria The left atrial size is normal. Right atrial size is normal. Atrial septum not well seen. Mitral Valve Themitral valve is normal. There is no evidence of mitral valve prolapse. There is no mitral valve stenosis. There is no mitral regurgitation noted. Tricuspid Valve The tricuspid valve is not well visualized. No tricuspid regurgitation. Cannot assess RVSP due to lack of sufficient TR jet. Aortic ValveThe aortic valve is not well visualized. Difficult to assess number of leaflets. No aortic stenosis. No aortic regurgitation is present. Pulmonic Valve The pulmonic valve is not well seen, but is grossly normal. Trace pulmonic valvular regurgitation. Great Vessels The aortic root is normal size. Pericardium There is no pericardial effusion. Diastology E to A reversal suggestive of abnormal relaxation during early diastole. E/E prime ratio is <8 suggesting normal pulmonary wedge pressure andno LV diastolic dysfunction. Interpretation Summary Left ventricular systolic function appears to be normal. Ejection Fraction = 55-60%. Technically inadequate to evaluate wall motion abnormalities. Trace pulmonic valvular regurgitation. E to A reversal suggestive of abnormal relaxation during early diastole. + + :Measurements with Normals : :IVSd: (0.6-1.2 LVIDd: (3.5-5.7 Ao root diam: (2.0- 3.7 : :0.88 cm cm) 4.2 cm cm) 2.3 cm cm) : :LVPWd: (0.6-1.1 LVIDs: (3.1-4.6 LA dimension: (1.9-4.0 : :0.76 cm cm) 2.8 cm cm) 3.0 cm cm) : + + MMode/2D Measurements & Calculations FS: 34.2 % Ao root area: 4.2 cm2 EDV(Teich): 80.4 ml ESV(Teich): 29.3 ml Doppler Measurements & Calculations MV E max debora: Ao V2 max: LV V1 max PG: PA V2 max: 60.0cm/sec 125.0 cm/sec 3.8 mmHg 104.0 cm/sec MV A max debora: Ao max P.3 mmHgLV V1 max: PA max P.3 mmHg 67.9 cm/sec 97.0 cm/sec MV E/A: 0.88 RV V1 max: 78.6 cm/sec Electronically signed by: Jinny Zepeda MD 09/29/2023 05:41 PM XR Chest 1 Vw Portable Result Date: 09/28/2023 Narrative: EXAM DESCRIPTION: XR CHEST 1 VIEW REASON FOR STUDY: Alcohol withdrawal Pt c/o CP since this morning. Pt reports drinking heavy for 7 days. Pt has hx liver failure. AOx4. TECHNIQUE: Single radiographic view(s) of the chest. COMPARISON: 11/08/2021. FINDINGS: LUNGS: No focal opacity, pleural effusion, or pneumothorax. HEART/MEDIASTINUM: Cardiac silhouette normal in size. Mediastinal and hilar contours appear normal. LINES/TUBES: None. BONES: No acute osseous abnormality. IMPRESSION: No acute cardiopulmonary abnormality. THIS IS AN ELECTRONICALLY VERIFIED FINAL REPORT 09/28/2023 11:37 PM - Electronically signed by Sid Stacy M.D..O. Rolando Jade M.D., Sid.OKaran T: Report ID: [id number] Reading Location: [place] [address] Assessment and Plan: Alcohol dependence c/b withdrawal syndrome - patient from [facility] due [facility] hip fracture, was out on leave and began to consume alcohol heavily with approximately 20-30 beers per day - CIWA q.4 hours - Ativan per CIWA protocol - continue home dose Seroquel 12.5 mg p.o. t.i.d. - continue home dose Zoloft 50 mg p.o. daily - TTE: EF 55-60% - continuous telemetry monitoring with SpO2 monitoring - fall precautions - seizure precautions - cont IV NS Hyponatremia - resolved Hepatic cirrhosis - continue home dose propranolol 10 mg p.o. b.i.d. - continue home dose rifaximin 550 mg p.o. b.i.d. Abdominal pain - KUB neg for acute process - cont ondansetron PRN - CT AP: neg for acute process; known liver cirrhosis - cont simethicone - RUQ US pending DVT Prophylaxis: SCDs Code Status: Full Code Disposition: anticipate discharge by next week My total encounter time was 30 minutes which was spent in the activities documented in the note. This includes time spent prior to the visit and after the visit in direct care of the patient. This time does not include time spent in any separately reportable services. GRINDER TENDER * Donal Cabrera MD - 10/02/2023 1:10 PM CST GENERAL INTERNAL MEDICINE DAILY PROGRESS NOTE Admit Date: 09/28/2023 LOS: 3 Brief Hospital Course: 38M with hx significant for alcohol dependence, alcohol abuse, and cirrhosis presented with alcoholintoxication and was admitted for alcohol withdrawal treatment. He had been at [facility] after sustaining a hip fracture and was on a 7-day leave when he started drinking alcohol heavily (20- 30 beers daily). Last drink was one day COO. Pt was started on CIWA protocol. Pt reportedhallucinations and tremors. Pt reported abdominal pain. KUB neg for acute process. CT pending. Subjective: Interval History: Pt continues to report abdominal pain. He says it is now in RUQ. CT AP was neg. RUQ US ordered. Objective: Patient Vitals for the past 8 hrs: BP Temp Temp src Pulse Resp SpO2 Weight 10/02/23 1200 122/88 36.5 ??C (97.7 ??F) Oral 88 20 -- -- 10/02/23 1042 123/81 36.5 ??C (97.7 ??F) Axillary 68 -- 96 % -- 10/02/23 1030 123/81 36.5 ??C (97.7 ??F) Axillary 68 18 -- -- 10/02/23 0729 124/94 36.5 ??C (97.7 ??F) Axillary 70 20 97 % -- 10/02/23 0600 -- -- -- -- -- -- 91.1 kg (200 lb 13.4 oz) Intake/Output Summary (Last 24 hours) at 10/02/2023 1310 Last data filed at 10/02/2023 0620 Gross per 24 hour Intake 1600 ml Output 1150 ml Net 450 ml BP 122/88 (BP Location: Right arm) Pulse 88 Temp 36.5 ??C (97.7 ??F) (Oral) Resp 20 Ht 170.2 cm (5' 7.01 ) Wt 91.1 kg (200 lb 13.4 oz) SpO2 96% BMI 31.45 kg/m?? Physical Exam: Gen: NAD, A&Ox4 HEENT: MMM CV: RRR Resp: CTAB Abd: soft, RUQ & epigastric ttp Extremities: No edema Skin: warm, dry Neuro: grossly intact, tremulous Current Facility-Administered Medications Medication Dose Route Frequency Provider Last Rate Last Admin cloNIDine (CATAPRES-TTS) 0.2 mg/24 hr patch weekly 1 patch 1 patch transdermal Weekly Isidra Vega NP 1 patch at 09/29/23 0004 folic acid (FOLVITE) tablet 1 mg 1 mg oral Daily Isidra Vega NP 1 mg at 10/02/23 0803 influenza quadrivalent [id number] (FLULAVAL,FLUARIX,FLUZONE) 60 mcg (15 mcg x 4)/0.5 mL vaccine (STANDARD age 6 months and up) 0.5 mL 0.5 mL intramuscular During hospitalization Isidra Vega NP LORazepam (ATIVAN) tablet 1 mg 1 mg oral Q4H PRN Isidra Vega NP Or LORazepam (ATIVAN) tablet 1 mg 1 mg oral Q2H PRN Isidra Vega NP 1 mg at 10/02/23 1301 Or LORazepam (ATIVAN) injection 1 mg 1 mg intravenous Q1H PRN Isidra Vega NP 1 mg at 09/29/23 1507 Or LORazepam (ATIVAN) injection 1 mg 1 mg intramuscular Q1H PRN Isidra Vega NP Or LORazepam (ATIVAN) injection 2 mg 2 mg intravenous Q1H PRN Isidra Vega NP Or LORazepam (ATIVAN) injection 2 mg 2 mg intramuscular Q1H PRN Isidra Vega NP naloxone (NARCAN) 0.4 mg/mL injection 0.4 mg 0.4 mg intravenous Q10 Min PRN Isidra Vega NP nicotine (NICODERM CQ) 21 mg patch 24 hour 1 patch 1 patch transdermal Daily PRN Isidra Vega NP ondansetron (ZOFRAN) injection 4 mg 4 mg intravenous Q6H PRN Donal Cabrera MD 4 mg at 09/30/23 1256 ondansetron ODT (ZOFRAN-ODT) disintegrating tablet 4 mg 4 mg oral Q6H PRN Donal Cabrera MD oxyCODONE (ROXICODONE) tablet 5 mg 5 mg oral Q6H PRN Donal Cabrera MD pantoprazole DR (PROTONIX) extended release tablet 40 mg 40 mg oral BID Donal Cabrera MD 40 mg at 10/02/23 0803 polyethylene glycol (MIRALAX) packet 17 g 17 g oral Daily PRN Isidra Vega NP propranoloL (INDERAL) tablet 10 mg 10 mg oral BID Isidra Vega NP 10 mg at 10/02/23 0803 QUEtiapine (SEROquel) tablet 12.5 mg 12.5 mg oral TID Isidra Vega NP 12.5 mg at 10/02/23 0803 ramelteon (ROZEREM) tablet 8 mg 8 mg oral Nightly PRN Isidra Vega NP rifAXIMin (XIFAXAN) tablet 550 mg 550 mg oral BID Isidra Vega NP 550 mg at 10/02/23 0803 sertraline (ZOLOFT) tablet 50 mg 50 mg oral QAM Isidra Vega NP 50 mg at 10/02/23 0803 simethicone (MYLICON) chewable tablet 160 mg 160 mg oral BID PRN Donal Cabrera MD 160 mg at 10/02/23 1301 sodium chloride 0.9% infusion 75 mL/hr intravenous Continuous Donal Cabrera MD 75 mL/hr at 10/02/23 0600 75 mL/hr at 10/02/23 0600 sucralfate (CARAFATE) 100 mg/mL oral suspension 1 g 1 g oral TID with meals Isdira Vega NP 1 g at 10/02/23 1146 thiamine (VITAMIN B-1) tablet 100 mg 100 mg oral Daily Isidra Vega, PLAYBACK OPERATOR 100 mg at 10/02/23 0803 Data Review: Recent Results (from the past 24 hour(s)) Basic metabolic panel Collection Time: 10/02/23 5:14 AM Result Value Ref Range Sodium 139 135 - 145 mmol/L Potassium, pl 4.0 3.3 - 4.9 mmol/L Chloride 105 97 - 110 mmol/L CO2 26 22 - 32 mmol/L Anion gap 8 2 - 15 mmol/L BUN 8 6 - 25 mg/dL Creatinine 0.60 (L) 0.80 - 1.30 mg/dL Glucose 98 70 - 199 mg/dL Calcium 8.7 8.5 - 10.3 mg/dL Hepatic function panel Collection Time: 10/02/23 5:14 AM Result Value Ref Range Bilirubin, total 0.5 0.1 - 1.2 mg/dL Bilirubin, direct <0.2 0.1 - 0.3 mg/dL Protein, pl 6.3 (L) 6.5 - 8.5 g/dL Albumin 3.3 (L) 3.5 - 5.0 g/dL Alk phos 77 40 - 130 Units/L ALT 42 7 - 55 Units/L AST 36 10 - 50 Units/L CBC with auto differential Collection Time: 10/02/23 5:14 AM Result Value Ref Range WBC 6.6 3.8 - 9.9 K/cumm Hgb 13.0 13.0 - 17.5 g/dL Hct 37.2 (L) 38.9 - 50.3 % Plt 158 150 - 400 K/cumm MPV 10.1 9.1 - 12.3 fL RBC 3.93 (L) 4.30 - 5.80 M/cumm MCV 94.7 81.3 - 96.4 fL MCH 33.1 27.1 - 33.3 pg MCHC 34.9 32.3 - 35.7 g/dL RDW CV 14.3 11.1 - 14.9 % RDW SD 45.7 35.7 - 48.1 fL NRBC abs 0.00 0.00 - 0.01 K/cumm Differential, auto Collection Time: 10/02/23 5:14 AM Result Value Ref Range Neutrophil abs 3.9 1.5 - 6.5 K/cumm Imm gran abs 0.1 0.0 - 0.1 K/cumm Lymphocyte abs 1.5 0.8 - 3.3 K/cumm Monocyte abs 0.9 (H) 0.2 - 0.8 K/cumm Eosinophil abs 0.2 0.0 - 0.5 K/cumm Basophil abs 0.1 0.0 - 0.1 K/cumm Neutrophil pct 58.8 % Imm gran pct 0.9 % Lymphocyte pct 22.5 % Monocyte pct 14.0 % Eosinophil pct 3.0 % Basophil pct 0.8 % eGFR Collection Time: 10/02/23 5:14 AM Result Value Ref Range eGFR 126 mL/min/1.73 m2 Radiographic Studies: Transthoracic Echo (TTE) Complete W Doppler/CF Result Date: 09/29/2023 Narrative: Adult Echocardiogram + + :Name: LOVE DIAZ Study Date: 09/29/2023 Status: [facility] : : Patient Location: [address]^[id number]^MHHeight: 67 in : : Weight: 193 lbBP: 144/87 mmHg: :: 1985 Gender: Male BSA: 2.0 m2 : :Reason For Malick dy: chest pain : :Ordering Physician: : :ISIDRA VEGA : : : :Performed By: Jimmy Banegas, : :RCS, RVT : + + Procedure A two-dimensional transthoracic echocardiogram with color flow and Doppler was performed. Left Ventricle Left ventricular chamber size is normal. There is normal left ventricular wall thickness. Left ventricular systolic function appears to be normal. Ejection Fraction = 55-60%. Technically inadequate to evaluate wall motion abnormalities. No obvious regional wall motion abnormalities noted. Right Ventricle The right ventricle is normal in size and function. Atria The left atrial size is normal. Right atrial size is normal. Atrial septum not well seen. Mitral Valve Themitral valve is normal. There is no evidence of mitral valve prolapse. There is no mitral valve stenosis. There is no mitral regurgitation noted. Tricuspid Valve The tricuspid valve is not well visualized. No tricuspid regurgitation. Cannot assess RVSP due to lack of sufficient TR jet. Aortic ValveThe aortic valve is not well visualized. Difficult to assess number of leaflets. No aortic stenosis. No aortic regurgitation is present. Pulmonic Valve The pulmonic valve is not well seen, but is grossly normal. Trace pulmonic valvular regurgitation. Great Vessels The aortic root is normal size. Pericardium There is no pericardial effusion. Diastology E to A reversal suggestive of abnormal relaxation during early diastole. E/E prime ratio is <8 suggesting normal pulmonary wedge pressure andno LV diastolic dysfunction. Interpretation Summary Left ventricular systolic function appears to be normal. Ejection Fraction = 55-60%. Technically inadequate to evaluate wall motion abnormalities. Trace pulmonic valvular regurgitation. E to A reversal suggestive of abnormal relaxation during early diastole. + + :Measurements with Normals : :IVSd: (0.6-1.2 LVIDd: (3.5-5.7 Ao root diam: (2.0- 3.7 : :0.88 cm cm) 4.2 cm cm) 2.3 cm cm) : :LVPWd: (0.6-1.1 LVIDs: (3.1-4.6 LA dimension: (1.9-4.0 : :0.76 cm cm) 2.8 cm cm) 3.0 cm cm) : + + MMode/2D Measurements & Calculations FS: 34.2 % Ao root area: 4.2 cm2 EDV(Teich): 80.4 ml ESV(Teich): 29.3 ml Doppler Measurements & Calculations MV E max debora: Ao V2 max: LV V1 max PG: PA V2 max: 60.0 cm/sec 125.0 cm/sec 3.8 mmHg 104.0 cm/sec MV A max debora: Ao max P.3 mmHgLV V1 max: PA max P.3mmHg 67.9 cm/sec 97.0 cm/sec MV E/A: 0.88 RV V1 max: 78.6 cm/sec Electronically signed by: Jinny Zepeda MD 09/29/2023 05:41 PM XR Chest 1 Vw Portable Result Date: 09/28/2023 Narrative: EXAM DESCRIPTION: XR CHEST 1 VIEW REASON FOR STUDY: Alcohol withdrawal Pt c/o CP since this morning. Pt reports drinking heavy for 7 days. Pt has hx liver failure. AOx4. TECHNIQUE: Single radiographic view(s) of the chest. COMPARISON: 11/08/2021. FINDINGS: LUNGS: No focal opacity, pleural effusion, or pneumothorax. HEART/MEDIASTINUM: Cardiac silhouette normal in size. Mediastinal and hilar contours appear normal. LINES/TUBES: None. BONES: No acute osseous abnormality. IMPRESSION: No acute cardiopulmonary abnormality. THIS IS AN ELECTRONICALLY VERIFIED FINAL REPORT 09/28/2023 11:37 PM - Electronically signed by Kiran Stacy M.D., M.D., D.O. MW T: Report ID: [id number] Reading Location: [place] [address] Assessment and Plan: Alcohol dependence c/b withdrawal syndrome - [facility], was out on leave and began to consume alcohol heavily with approximately 20-30 beers per day - CIWA q.4 hours - Ativan per CIWA protocol - continue home dose Seroquel 12.5 mg p.o. t.i.d. - continue home dose Zoloft 50 mg p.o. daily - TTE: EF 55-60% - continuous telemetry monitoring with SpO2 monitoring - fall precautions - seizure precautions - cont IV NS Hyponatremia - resolved Hepatic cirrhosis - continue home dose propranolol 10 mg p.o. b.i.d. - continue home dose rifaximin 550 mg p.o. b.i.d. Abdominal pain - KUB neg for acute process - cont ondansetron PRN - CT AP: neg for acute process; known liver cirrhosis - cont simethicone - RUQ US DVT Prophylaxis: SCDs Code Status: Full Code Disposition: anticipate discharge by next week My total encounter time was 34 minutes which was spent in the activities documented in the note. This includes time spent prior to the visit and after the visit in direct care of the patient. This time does not include time spent in any separately reportable services. 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 Precautions Precautions Bed/Chair Alarm;Safety Precaution Comments IV, tele, Pt reports he is WBAT L LE but cannot confirm that. Pt also reports that he performs mobility NWB L LE due to pain. Home Living Type of Home Extended Care Facility Additional Comments Pt lives at [facility] Prior Function Level of [place] Independent with ADLs;Independent functional transfers;Independent with wheelchair;Dependent with homemaking Receives Help From (facility staff) Driving No Fall within the last 6 months Yes Fall within the last 6 months comment 1 Prior Function Comments Pt indep with w/c mobility, transfers, ADL's. Facility performs IADL's/med management. Pain Assessment Pain Assessment 0-10 Pain Score 9 Pain Location Hip Pain Orientation Left Transfer 1 Transfer From 1 Sit Transfer Type 1 To and from Transfer to 1 Stand Technique 1 Sit to stand;Stand to sit Transfer Level of Assistance 1 Minimum Assist;Minimal verbal cues;Moderate verbal cues;Minimal tactile cues (x1) Trials/Comments 1 assist for balance/weakness and cues for hand placement/sequence/safety. Pt stoodwith ww with SBA of 1 and cues. Pt amb forward/backward with ww-NWB L LE-with CGA of 1 and cues. Ptreports he doesn't tolerate wt through L LE. PT Treatment/Exercise Comments PT Treatment/Exercise Comments R LE strength 4/5; L LE strength 3-/5. Safe Environment End of Therapy Session Safe Environment End of Therapy Session Patient left in chair;Chair alarm in place and activated;Call light within reach;Overbed table within reach Assessment Problem List Decreased strength;Decreased endurance;Impaired balance;Decreased mobility;Pain Recommendation/Plan PT Recommendation/Plan (S) Cad Cam Programmer Care Patient at high risk for Falls;Readmission;Injury due to decreased ability to care for self;Injury due to reduced functional status;Injury due to balance deficits;Injury at home as patient has not returned to prior level of function PT Frequency during current admission 2-3x/wk (1-2 times daily) Treatment/Interventions during current admission Balance Training;Bed mobility;Endurance training;Functional activity;Functional transfer training;Gait training;Strengthening;Therapeutic activity;Therapeutic exercise;Transfer training PT - Next Appointment 10/15/23 PT Evaluation Complete Yes Multi-Disciplinary Problems (from Physical Therapy) Active Problems Problem: PT Misc Start Date: 10/01/23 Goal Start Date Expected End Date End Date PT [facility] - [facility] [place] 10/01/23 10/15/23 -- Goal Details: Will transfer bed<>chair with ww and CGA of 1 and cues. Pt performs mobility NWB L LE due to pain. Goal Start Date Expected End Date End Date PT [facility] - [facility] [place] 2 10/01/23 10/15/23 -- Goal Details: Will perform R LE and L knee/ankle AROM ex with min cues Goal Start Date Expected End Date End Date PT [facility] 3 10/01/23 10/15/23 -- Goal Details: Will amb 15 ft with ww-NWB L LE-with CGA of 1 and cues Educated the patient to the role of physical therapy, plan of care, goals of therapy, rationale forprogressing mobility and home exercise program and home safety. Patient was left with all needs met and equipment intact. Mobility and ADL status posted at bedsideand within medical record. GRINDER TENDER * Donal Cabrera MD - 10/01/2023 3:57 PM CST GENERAL INTERNAL MEDICINE DAILY PROGRESS NOTE Admit Date: 09/28/2023 LOS: 2 Brief Hospital Course: 38M with hx significant for alcohol dependence, alcohol abuse, and cirrhosis presented with alcoholintoxication and was admitted for alcohol withdrawal treatment. He had been at [facility] after sustaining a hip fracture and was on a 7-day leave when he started drinking alcohol heavily (20- 30 beers daily). Last drink was one day COO. Pt was started on CIWA protocol. Pt reportedhallucinations and tremors. Pt reported abdominal pain. KUB neg for acute process. CT pending. Subjective: Interval History: Pt continues to report abdominal pain. Also reports not passing gas. CT AP and simethicone ordered. Objective: Patient Vitals for the past 8 hrs: BP Temp Temp src Pulse Resp SpO2 10/01/23 1200 120/84 36.4 ??C (97.5 ??F) Oral 70 18 -- 10/01/23 0840 118/86 36.6 ??C (97.9 ??F) -- 77 20 94 % Intake/Output Summary (Last 24 hours) at 10/01/2023 1557 Last data filed at 10/01/2023 0500 Gross per 24 hour Intake 240 ml Output 1180 ml Net -940 ml BP 120/84 (BP Location: Right arm) Pulse 70 Temp 36.4 ??C (97.5 ??F) (Oral) Resp 18 Ht 170.2 cm (5' 7.01 ) Wt 87 kg (191 lb 12.8 oz) SpO2 94% BMI 30.03 kg/m?? Physical Exam: Gen: NAD, A&Ox4 HEENT: MMM CV: RRR Resp: CTAB Abd: soft, epigastric ttp Extremities: No edema Skin: warm, dry Neuro: grossly intact, tremulous Current Facility-Administered Medications Medication Dose Route Frequency Provider Last Rate Last Admin cloNIDine (CATAPRES-TTS) 0.2 mg/24 hr patch weekly 1 patch 1 patch transdermal Weekly Isidra Vega NP 1 patch at 09/29/23 0004 folic acid (FOLVITE) tablet 1 mg 1 mg oral Daily Isidra Vega NP 1 mg at 10/01/23 0825 influenza quadrivalent [id number] (FLULAVAL,FLUARIX,FLUZONE) 60 mcg (15 mcg x 4)/0.5 mL vaccine (STANDARD age 6 months and up) 0.5 mL 0.5 mL intramuscular During hospitalization Isidra Vega NP LORazepam (ATIVAN) tablet 1 mg 1 mg oral Q4H PRN Isidra Vega NP Or LORazepam (ATIVAN) tablet 1 mg 1 mg oral Q2H PRN Isidra Vega NP 1 mg at 10/01/23 0529 Or LORazepam (ATIVAN) injection 1 mg 1 mg intravenous Q1H PRN Isidra Vega NP 1 mg at 09/29/23 1507 Or LORazepam (ATIVAN) injection 1 mg 1 mg intramuscular Q1H PRN Isidra Vega NP Or LORazepam (ATIVAN) injection 2 mg 2 mg intravenous Q1H PRN Isidra Vega NP Or LORazepam (ATIVAN) injection 2 mg 2 mg intramuscular Q1H PRN Isidra Vega NP naloxone (NARCAN) 0.4 mg/mL injection 0.4 mg 0.4 mg intravenous Q10 Min PRN Isidra Vega NP nicotine (NICODERM CQ) 21 mg patch 24 hour 1 patch 1 patch transdermal Daily PRN Isidra Vega NP ondansetron (ZOFRAN) injection 4 mg 4 mg intravenous Q6H PRN Donal Cabrera MD 4 mg at 09/30/23 1256 ondansetron ODT (ZOFRAN-ODT) disintegrating tablet 4 mg 4 mg oral Q6H PRN Donal Cabrera MD oxyCODONE (ROXICODONE) tablet 5 mg 5 mg oral Q4H PRN Isidra Vega NP 5 mg at 10/01/[address] (PROTONIX) extended release tablet 40 mg 40 mg oral BID Donal Cabrera MD 40 mg at 10/01/23 0825 polyethylene glycol (MIRALAX) packet 17 g 17 g oral Daily PRN Isidra Vega NP propranoloL (INDERAL) tablet 10 mg 10 mg oral BID Isidra Vega NP 10 mg at 10/01/23 0825 QUEtiapine (SEROquel) tablet 12.5 mg 12.5 mg oral TID Isidra Vega NP 12.5 mg at 10/01/23 0825 ramelteon (ROZEREM) tablet 8 mg 8 mg oral Nightly PRN Isidra Vega NP rifAXIMin (XIFAXAN) tablet 550 mg 550 mg oral BID Isidra Vega NP 550 mg at 10/01/23 0825 sertraline (ZOLOFT) tablet 50 mg 50 mg oral QAM Isidra Vega NP 50 mg at 10/01/23 0825 simethicone (MYLICON) chewable tablet 160 mg 160 mg oral BID PRN Donal Cabrera MD sodium chloride 0.9% infusion 75 mL/hr intravenous Continuous Donal Cabrera MD 75 mL/hr at 09/30/23 1256 75 mL/hr at 09/30/23 1256 sucralfate (CARAFATE) 100 mg/mL oral suspension 1 g 1 g oral TID with meals Isidra Vega NP 1 g at 10/01/23824 thiamine (VITAMIN B-1) tablet 100 mg 100 mg oral Daily Isidra Vega NP 100 mg at 10/01/23824 Data Review: Recent Results (from the past 24 hour(s)) POCT glucose Collection Time: 09/30/23 9:05 PM Result Value Ref Range Glucose, POC 119 70 - 199 mg/dL Glucose comment 1 Use This Result Glucose comment 2 RN/MD Notified Basic metabolic panel Collection Time: 10/01/23 5:20 AM Result Value Ref Range Sodium 140 135 - 145 mmol/L Potassium, pl 3.7 3.3 - 4.9 mmol/L Chloride 105 97 - 110 mmol/L CO2 24 22 - 32 mmol/L Anion gap 11 2 - 15 mmol/L BUN 9 6 - 25 mg/dL Creatinine 0.60 (L) 0.80 - 1.30 mg/dL Glucose 97 70 - 199 mg/dL Calcium 8.6 8.5 - 10.3 mg/dL Hepatic function panel Collection Time: 10/01/23 5:20 AM Result Value Ref Range Bilirubin, total 0.6 0.1 - 1.2 mg/dL Bilirubin, direct <0.2 0.1 - 0.3 mg/dL Protein, pl 6.3 (L) 6.5 - 8.5 g/dL Albumin 3.2 (L) 3.5 - 5.0 g/dL Alk phos 78 40 - 130 Units/L ALT 41 7 - 55 Units/L AST 39 10 - 50 Units/L CBC with auto differential Collection Time: 10/01/23 5:20 AM Result Value Ref Range WBC 5.7 3.8 - 9.9 K/cumm Hgb 12.5 (L) 13.0 - 17.5 g/dL Hct 35.8 (L) 38.9 - 50.3 % Plt 153 150 - 400 K/cumm MPV 10.5 9.1 - 12.3 fL RBC 3.83 (L) 4.30 - 5.80 M/cumm MCV 93.5 81.3 - 96.4 fL MCH 32.6 27.1 - 33.3 pg MCHC 34.9 32.3 - 35.7 g/dL RDW CV 13.7 11.1 - 14.9 % RDW SD 44.2 35.7 - 48.1 fL NRBC abs 0.00 0.00 - 0.01 K/cumm Differential, auto Collection Time: 10/01/23 5:20 AM Result Value Ref Range Neutrophil abs 3.4 1.5 - 6.5 K/cumm Imm gran abs 0.0 0.0 - 0.1 K/cumm Lymphocyte abs 1.4 0.8 - 3.3 K/cumm Monocyte abs 0.7 0.2 - 0.8 K/cumm Eosinophil abs 0.2 0.0 - 0.5 K/cumm Basophil abs 0.1 0.0 - 0.1 K/cumm Neutrophil pct 58.9 % Imm gran pct 0.5 % Lymphocyte pct 23.7 % Monocyte pct 12.9 % Eosinophil pct 3.0 % Basophil pct 1.0 % eGFR Collection Time: 10/01/23 5:20 AM Result Value Ref Range eGFR 126 mL/min/1.73 m2 Radiographic Studies: Transthoracic Echo (TTE) Complete W Doppler/CF Result Date: 09/29/2023 Narrative: Adult Echocardiogram + + :Name: LOVE DIAZ Study Date: 09/29/2023 Status: B : : Patient Location: [address]^[id number]^MHHeight: 67 in : : Weight: 193 lbBP: 144/87 mmHg: :: 1985 Gender: Male BSA: 2.0 m2 : :Reason For Stud y: chest pain : :Ordering Physician: : :ISIDRA VEGA : : : :Performed By: Jimmy Banegas, : :RCS, RVT : + + Procedure A two-dimensional transthoracic echocardiogram with color flow and Doppler was performed. Left Ventricle Left ventricular chamber size is normal. There is normal left ventricular wall thickness. Left ventricular systolic function appears to be normal. Ejection Fraction = 55-60%. Technically inadequate to evaluate wall motion abnormalities. No obvious regional wall motion abnormalities noted. Right Ventricle The right ventricle is normal in size and function. Atria The left atrial size is normal. Right atrial size is normal. Atrial septum not well seen. Mitral Valve The m itral valve is normal. There is no evidence of mitral valve prolapse. There is no mitral valve stenosis. There is no mitral regurgitation noted. Tricuspid Valve The tricuspid valve is not well visualized. No tricuspid regurgitation. Cannot assess RVSP due to lack of sufficient TR jet. Aortic Valve The aortic valve is not well visualized. Difficult to assess number of leaflets. No aortic stenosis . No aortic regurgitation is present. Pulmonic Valve The pulmonic valve is not well seen, but is grossly normal. Trace pulmonic valvular regurgitation. Great Vessels The aortic root is normal size. Pericardium There is no pericardial effusion. Diastology E to A reversal suggestive of abnormal relaxat ion during early diastole. E/E prime ratio is <8 suggesting normal pulmonary wedge pressure and no LV diastolic dysfunction. Interpretation Summary Left ventricular systolic function appears to benormal. Ejection Fraction = 55-60%. Technically inadequate to evaluate wall motion abnormalities. Trace pulmonic valvular regurgitation. E to A reversal suggestive of abnormal relaxation during earlydiastole. + + :Measurements with Normals : :IVSd: (0.6-1.2 LVIDd: (3.5-5.7 Ao root diam: (2.0- 3.7 : :0.88 cm cm) 4.2 cm cm) 2.3 cm cm) : :LVPWd: (0.6-1.1 LVIDs: (3.1-4.6 LA dimension: (1.9-4.0 : :0.76 cm cm) 2.8 cm cm) 3.0cm cm) : + + MMode/2D Measurements & Calculations FS: 34.2 % Ao root area: 4.2 cm2 EDV(Teich): 80.4 ml ESV(Teich): 29.3ml Doppler Measurements & Calculations MV E max debora: Ao V2 max: LV V1 max PG: PA V2 max: 60.0 cm/sec 125.0 cm/sec 3.8 mmHg 104.0 cm/sec MV A max debora: Ao max P.3 mmHgLV V1 max: PA max P.3 mmHg 67.9 cm/sec 97.0 cm/sec MV E/A: 0.88 RV V1 max: 78.6 cm/sec Electronically signed by: Jinny Zepeda MD 09/29/2023 05:41 PM XR Chest 1 Vw Portable Result Date: 09/28/2023 Narrative: EXAM DESCRIPTION: XR CHEST 1 VIEW REASON FOR STUDY: Alcohol withdrawal Pt c/o CP since this morning. Pt reports drinking heavy for 7 days. Pt has hx liver failure. AOx4. TECHNIQUE: Single radiographic view(s) of the chest. COMPARISON: 11/08/2021. FINDINGS: LUNGS: No focal opacity, pleural effusion, or pneumothorax. HEART/MEDIASTINUM: Cardiac silhouette normal in size. Mediastinal and hilar contours appear normal. LINES/TUBES: None. BONES: No acute osseous abnormality. IMPRESSION: No acute cardiopulmonary abnormality. THIS IS AN ELECTRONICALLY VERIFIED FINAL REPORT 09/28/2023 11:37 PM - Electronically signed by Sid Stacy M.D..O. Kiran Stacy M.D. T: Report ID: [id number] [place] Location: [id number] Assessment and Plan: Alcohol dependence c/b withdrawal syndrome - patient [facility], was out on leave and began to consume alcohol heavily with approximately 20-30 beers per day - CIWA q.4 hours - Ativan per CIWA protocol - continue home dose Seroquel 12.5 mg p.o. t.i.d. - continue home dose Zoloft 50 mg p.o. daily - TTE: EF 55-60% - continuous telemetry monitoring with SpO2 monitoring - fall precautions - seizure precautions - IV NS Hyponatremia - resolved Hepatic cirrhosis - continue home dose propranolol 10 mg p.o. b.i.d. - continue home dose rifaximin 550 mg p.o. b.i.d. Abdominal pain - KUB neg for acute process - cont ondansetron PRN - CT AP - simethicone DVT Prophylaxis: SCDs Code Status: Full Code Disposition: anticipate discharge by next week My total encounter time was 39 minutes which was spent in the activities documented in the note. This includes time spent prior to the visit and after the visit in direct care of the patient. This time does not include time spent in any separately reportable services. GRINDER TENDER * Sheridan Zheng RN - 10/01/2023 2:49 PM CST Care Management Weekly Progression of Care Review Pt originally admitted for Alcohol withdrawal syndrome with complication (HCC) [F10.932] PCP: Major Dotson MD Current Plan of Care Includes: CIWA PT/OT Recommendations: to be seen still. He indicated his hip fx was recent and he was at [facility] for rehab but it looks like the fx was a year ago and he had been at [facility] under LTC. Barriers to Discharge: CIWA Anticipate Discharge Plan/Needs: [facility] a new SNF for [facility] on [place] ([facility] will not take him back Expected Discharge Date: Wednesday Sheridan Zheng RN 10/01/2023 2:49 PM GRINDER TENDER * Linda Fang, OT - 10/01/2023 1:16 PM CST Occupational Therapy 10/01/23 1316 General Chart Reviewed Yes Session Type Evaluation OT Received On 10/01/23 Safe Environment Arm band checked;Patient found in supine;Gait belt utilized for all out of bed mobility Subjective Agreeable to Therapy Subjective Comment pt reports that he has been a resident at [facility] for since his Hip fx in 2021. States that he is waiting to get his teeth pulled to have a THR on that hip due to continued pain and difficulty with mobility. Additional Pertinent History Pt admitted with Alcohol withdrawal syndrome with complication. PMH: Hip fx 2021, Cirrhosis of the liver Family/Caregiver Present No Occupational Therapy-Patient Goal To be able to walk without an AD. Current Functional Status OT Functional Mobility Pt performs functional mobility bed> chair at bedside, MIN/MOD assist with ww. Pt bears minimal weight through L LE due to pain. OT Self Care LB: Indep donns R sock sitting EOB, MAX assist shayy L Sock. Grooming: Indep all aspects in sitting with setup provided. OT Cognition Alert, oriented x 4. OT Communication Intact Precautions Precautions Bed/Chair Alarm;Fall risk (skin integrity.) Weight Bearing Restrictions (Reports that he is WBAT on L LE.) Precaution Comments telemetry, IV Home Living Additional Comments Resident at [facility]. Has a ww and manual wc. Prior Function Fall within the last 6 months Yes Fall within the last 6 months comment REports a fall in the shower due to shower chair giving out. Prior Function Comments REports assist PRN with LB Dressing, supervision showers, Indep transfers and mobility with ww or wc depending on pain. Pain Assessment Pain Assessment 0-10 Pain Score 7 Pain Location Abdomen (L hip into lower back.) Activity Tolerance Endurance (LImited by pain.) Cognition Arousal/Alertness Alert Attention Span Distractability Current communication Appears Intact Orientation Oriented X4 (person, place, time, situation) Following Commands Follows one step commands without difficulty Compliance/Behavior Easy to engage Perseveration Not present Sensation Light Touch WFL Motor Planning Motor Planning Appears intact Coordination Movements Are Fluid and Coordinated (currently having intentional tremors B UE s.) Fine Motor Fair Serial Opposition WFL Eye-Hand Coordination Fair Hand Function Coordination Functional Gross Grasp Functional Reach/Grasp RUE Reach WFL LUE Reach WFL RUE Grasp Gross grasp (intact, good strength) LUE Grasp Gross grasp (intact, good strength) Static Sitting Balance Static Sitting-Balance Support Bilateral upper extremity supported Static Sitting-Sitting Surface Bed Static Sitting-Level of Assistance Close supervision Static Standing Balance Static Standing-Balance Support Bilateral upper extremity supported Static Standing-Standing Surface Floor Static Standing-Level of Assistance Minimum assistance;Moderate assistance (LE's shaky/weak, posterior lean.) Bed Mobility 1 Bed Mobility Comments 1 MOdified indep supine>Sit with increased time, uses bed railing. Transfer 1 Trials/Comments 1 sit<>Stand MIN/MOD x 2 assist with vc for hand placement. RUE Assessment RUE Assessment (ROM WFL, tremors noted.) LUE Assessment LUE Assessment (ROM WFL, Tremors noted) Safe Environment End of Therapy Session Safe Environment End of Therapy Session Patient left in chair;Chair alarm in place and activated;RNnotified;Call light within reach;Overbed table within reach;Bed in lowest position with wheels locked Assessment Prognosis Good Problem List Decreased safe judgment during ADL;Decreased balance;Decreased functional mobility;Decreased ADL independence;Decreased IADL independence;Decreased frequency/variety of movement;Decreased ROM;Pain;Gait Plan Plan Plan of care initiated Recommendation/Plan OT Recommendation (S) Prison Facility Patient at high risk for Falls;Readmission;Injury due to decreased ability to care for self;Injury due to reduced functional status;Injury due to impaired cognition;Injury due to balance deficits;Injury at home as patient has not returned to prior level of function Recommend SNF due to Risk of injury at home;Unable to safely care for self in the home;Skilled therapy needed to address care for self in the home;Skilled therapy needed to address functional deficits;Skilled therapy needed for patient to return to prior level of independence OT Frequency during current admission 3-5x/wk Treatment/Interventions during current admission ADL/IADL retraining;Balance Training;Bed mobility;Compensatory technique education;Functional activity;Functional mobility training;Functional transfer training;Parent/caregiver training and education;Therapeutic activity;Transfer training;Upper extremity motor function/functional skills OT - Next Appointment 10/15/23 OT Evaluation Complete Yes Multi-Disciplinary Problems (from Occupational Therapy) Active Problems Problem: OT Misc Start Date: 10/01/23 Goal Start Date Expected End Date End Date OT [facility] [place] [facility] 10/01/23 10/08/23 -- Goal Details: 1) LE ADL SBA/MIN ASSIST WITH AE PRN. Goal Start Date Expected End Date End Date OT [facility] [place] 2 10/01/23 10/08/23 -- Goal Details: 2) FUNCTIONAL MOBILITY TO/FROM BATHROOM AND ALL ASPECTS TOILETING MODIFIED INDEP WITHDME. Goal Start Date Expected End Date End Date OT [facility] [place] 3 10/01/23 10/08/23 -- Goal Details: 3) STAND AT SINK X4 MIN FOR ADL WITH GOOD BALANCE. Goal Start Date Expected End Date End Date OT [facility] [place] 4 10/01/23 10/08/23 -- Goal Details: 4) PERFORM SIMULATED MEDICATION MANAGEMENT ACTIVITY WITH 100% ACCURACY Education provided to the patient/caregiver regarding the role of occupational therapy, plan of care, goals of therapy, rationale for progressing mobility and use of call light. Good understanding. Cotx with Leonard Ibanez PT for safety of patient and staff due to current diagnosis, medical status, and/or level of physical assist needed due to weakness or equipment management. GRINDER TENDER * Javy Chung, BIOANALYST - 10/01/2023 10:43 AM CST I spoke to the social work administrator (Lidia) at [facility] to ensure that they could accept if d/c tomorrow. She said that she is waiting to hear from corporate re: that. She said that he wasn't actually on a 7 day leave but had d/c ama and was having gallons of liquor delivered to himself at the facility via [facility]. I am sending out more referrals. GRINDER TENDER * Jazmín Leonardo - 09/30/2023 3:57 PM CST PRS helped pt get enrolled in [facility]. PT is to call in on Wednesday at 1pm. PRS gave pt a paper with all information needed. Jazmín Leonardo [facility] [phone] GRINDER TENDER * Jazmín Leonardo - 09/30/2023 2:17 PM CST PRS met with pt to discuss outpatient Alcohol Use Disorder/ AUD treatment. PT stated that he would like to do outpatient but doesn't know if he could since [facility]. PRS explained to PT that she called and confirmed with facility that they would get pt to and from appts. PRS discussed [facility] with pt and pt was agreeable. PRS cannot set up appt until PThas a d/c date. PRS will follow up with pt daily until d/c is known and then PRS will get pt set upwith an outpatient appt through [facility]. PRS will add [facility]str[facility] information to AVS. Jazmín Leonardo [facility] [phone] GRINDER TENDER * Donal Cabrera MD - 09/30/2023 10:49 AM CST GENERAL INTERNAL MEDICINE DAILY PROGRESS NOTE Admit Date: 09/28/2023 LOS: 1 Brief Hospital Course: 38M with hx significant for alcohol dependence, alcohol abuse, and cirrhosis presented with alcoholintoxication and was admitted for alcohol withdrawal treatment. He had been at [facility] after sustaining a hip fracture and was on a 7-day leave when he started drinking alcohol heavily (20- 30 beers daily). Last drink was one day COO. Pt was started on CIWA protocol. Pt reportedhallucinations and tremors. Subjective: Interval History: Pt reports improved tremors but hallucinations continue. He also reports abdominal pain. KUB ordered. Objective: Patient Vitals for the past 8 hrs: BP Temp Temp src Pulse Resp SpO2 Height Weight 09/30/23 0738 105/70 37 ??C (98.6 ??F) -- 82 16 96 % 170.2 cm (5' 7.01 ) 87.6 kg (193 lb 2 oz) 09/30/23 0447 115/81 36.6 ??C (97.9 ??F) Oral 91 16 97 % -- -- Intake/Output Summary (Last 24 hours) at 09/30/2023 1058 Last data filed at 09/29/2023 2150 Gross per 24 hour Intake 360 ml Output 1100 ml Net -740 ml BP 105/70 Pulse 82 Temp 37 ??C (98.6 ??F) Resp 16 Ht 170.2 cm (5' 7.01 ) Wt 87.6 kg (193 lb 2 oz) SpO2 96% BMI 30.24 kg/m?? Physical Exam: Gen: NAD, A&Ox4 HEENT: MMM CV: RRR Resp: CTAB Abd: soft, epigastric ttp Extremities: No edema Skin: warm, dry Neuro: grossly intact, tremulous Current Facility-Administered Medications Medication Dose Route Frequency Provider Last Rate Last Admin cloNIDine (CATAPRES-TTS) 0.2 mg/24 hr patch weekly 1 patch 1 patch transdermal Weekly Isidra Vega NP 1 patch at 09/29/23 0004 folic acid (FOLVITE) tablet 1 mg 1 mg oral Daily Isidra Vega NP 1 mg at 09/30/23 0919 influenza quadrivalent [id number] (FLULAVAL,FLUARIX,FLUZONE) 60 mcg (15 mcg x 4)/0.5 mL vaccine (STANDARD age 6 months and up) 0.5 mL 0.5 mL intramuscular During hospitalization Isidra Vega NP LORazepam (ATIVAN) tablet 1 mg 1 mg oral Q4H PRN Isidra Vega NP Or LORazepam (ATIVAN) tablet 1 mg 1 mg oral Q2H PRN Isidra Vega NP 1 mg at 09/30/23 0928 Or LORazepam (ATIVAN) injection 1 mg 1 mg intravenous Q1H PRN Isidra Vega NP 1 mg at 09/29/23 1507 Or LORazepam (ATIVAN) injection 1 mg 1 mg intramuscular Q1H PRN Isidra Vega NP Or LORazepam (ATIVAN) injection 2 mg 2 mg intravenous Q1H PRN Isidra Vega NP Or LORazepam (ATIVAN) injection 2 mg 2 mg intramuscular Q1H PRN Isidra Vega NP naloxone (NARCAN) 0.4 mg/mL injection 0.4 mg 0.4 mg intravenous Q10 Min PRN Isidra Vega NP nicotine (NICODERM CQ) 21 mg patch 24 hour 1 patch 1 patch transdermal Daily PRN Isidra Vega NP oxyCODONE (ROXICODONE) tablet 5 mg 5 mg oral Q4H PRN Isidra Vega NP 5 mg at 09/30/[address] (PROTONIX) extended release tablet 40 mg 40 mg oral BID Donal Cabrera MD 40 mg at 09/30/23 0918 polyethylene glycol (MIRALAX) packet 17 g 17 g oral Daily PRN Isidra Vega NP propranoloL (INDERAL) tablet 10 mg 10 mg oral BID Isidra Vega NP 10 mg at 09/30/23 0919 QUEtiapine (SEROquel) tablet 12.5 mg 12.5 mg oral TID Isidra Vega NP 12.5 mg at 09/30/23 0918 ramelteon (ROZEREM) tablet 8 mg 8 mg oral Nightly PRN Isidra Vega NP rifAXIMin (XIFAXAN) tablet 550 mg 550 mg oral BID Isidra Vega NP 550 mg at 09/30/23 0918 sertraline (ZOLOFT) tablet 50 mg 50 mg oral QAM Isidra Vega NP 50 mg at 09/30/23 0918 sucralfate (CARAFATE) 100 mg/mL oral suspension 1 g 1 g oral TID with meals Isidra Vega NP 1 g at 09/30/23 0918 thiamine (VITAMIN B-1) tablet 100 mg 100 mg oral Daily Isidra Vega NP 100 mg at 09/30/23 0919 Data Review: Recent Results (from the past 24 hour(s)) Basic metabolic panel Collection Time: 09/30/23 6:13 AM Result Value Ref Range Sodium 138 135 - 145 mmol/L Potassium, pl 3.3 3.3 - 4.9 mmol/L Chloride 103 97 - 110 mmol/L CO2 23 22 - 32 mmol/L Anion gap 12 2 - 15 mmol/L BUN 6 6 - 25 mg/dL Creatinine 0.50 (L) 0.80 - 1.30 mg/dL Glucose 74 70 - 199 mg/dL Calcium 8.5 8.5 - 10.3 mg/dL Hepatic function panel Collection Time: 09/30/23 6:13 AM Result Value Ref Range Bilirubin, total 1.3 (H) 0.1 - 1.2 mg/dL Bilirubin, direct 0.4 (H) 0.1 - 0.3 mg/dL Protein, pl 5.9 (L) 6.5 - 8.5 g/dL Albumin 3.3 (L) 3.5 - 5.0 g/dL Alk phos 74 40 - 130 Units/L ALT 42 7 - 55 Units/L AST 47 10 - 50 Units/L CBC with auto differential Collection Time: 09/30/23 6:13 AM Result Value Ref Range WBC 6.8 3.8 - 9.9 K/cumm Hgb 12.2 (L) 13.0 - 17.5 g/dL Hct 34.9 (L) 38.9 - 50.3 % Plt 143 (L) 150 - 400 K/cumm MPV 9.7 9.1 - 12.3 fL RBC 3.73 (L) 4.30 - 5.80 M/cumm MCV 93.6 81.3 - 96.4 fL MCH 32.7 27.1 - 33.3 pg MCHC 35.0 32.3 - 35.7 g/dL RDW CV 13.1 11.1 - 14.9 % RDW SD 43.8 35.7 - 48.1 fL NRBC abs 0.00 0.00 - 0.01 K/cumm Protime-INR Collection Time: 09/30/23 6:13 AM Result Value Ref Range PT 14.6 12.0 - 14.6 sec INR 1.1 0.9 - 1.2 Differential, auto Collection Time: 09/30/23 6:13 AM Result Value Ref Range Neutrophil abs 4.6 1.5 - 6.5 K/cumm Imm gran abs 0.0 0.0 - 0.1 K/cumm Lymphocyte abs 1.2 0.8 - 3.3 K/cumm Monocyte abs 0.8 0.2 - 0.8 K/cumm Eosinophil abs 0.2 0.0 - 0.5 K/cumm Basophil abs 0.1 0.0 - 0.1 K/cumm Neutrophil pct 67.4 % Imm gran pct 0.4 % Lymphocyte pct 17.7 % Monocyte pct 11.3 % Eosinophil pct 2.5 % Basophil pct 0.7 % eGFR Collection Time: 09/30/23 6:13 AM Result Value Ref Range eGFR 133 mL/min/1.73 m2 Radiographic Studies: Transthoracic Echo (TTE) Complete W Doppler/CF Result Date: 09/29/2023 Narrative: Adult Echocardiogram + + :Name: LOVE DIAZ Study Date: 09/29/2023 Status: B : : Patient Location: [facility]^[id number]^MHHeight: 67 in : : Weight: 193 lbBP: 144/87 mmHg: :: 1985 Gender: Male BSA: 2.0 m2 : :Reason For St udy: chest pain : :Ordering Physician: : :ISIDRA VEGA : : : :Performed By: Jimmy Banegas, : :RCS, RVT : + + Procedure A two-dimensional transthoracic echocardiogram with color flow and Dopplerwas performed. Left Ventricle Left ventricular chamber size is normal. There is normal left ventricular wall thickness. Left ventricular systolic function appears to be normal. Ejection Fraction = 55-60%. Technically inadequate to evaluate wall motion abnormalities. No obvious regional wall motion abnormalities noted. Right Ventricle The right ventricle is normal in size and function. Atria The left atrial size is normal. Right atrial size is normal. Atrial septum not well seen. Mitral Valve The mitral valve is normal. There is no evidence of mitral valve prolapse. There is no mitral valve stenosis. There is no mitral regurgitation noted. Tricuspid Valve The tricuspid valve is not well visualized. No tricuspid regurgitation. Cannot assess RVSP due to lack of sufficient TR jet. Aortic Valve The aortic valve is not well visualized. Difficult to assess number of leaflets. No aortic stenosis . No aortic regurgitation is present. Pulmonic Valve The pulmonic valve is not well seen, but is grossly normal. Trace pulmonic valvular regurgitation. Great Vessels The aortic root is normal size. Pericardium There is no pericardial effusion. Diastology E to A reversal suggestive of abnormal relax ation during early diastole. E/E prime ratio is <8 suggesting normal pulmonary wedge pressure and no LV diastolic dysfunction. Interpretation Summary Left ventricular systolic function appears to be normal. Ejection Fraction = 55-60%. Technically inadequate to evaluate wall motion abnormalities.Trace pulmonic valvular regurgitation. E to A reversal suggestive of abnormal relaxation during early diastole. + + :Measurements with Normals : :IVSd: (0.6-1.2 LVIDd: (3.5-5.7 Ao root diam: (2.0-3.7 : :0.88 cm cm) 4.2 cm cm) 2.3 cm cm) : :LVPWd: (0.6-1.1 LVIDs: (3.1- 4.6 LA dimension: (1.9-4.0 : :0.76 cm cm) 2.8 cm cm) 3.0 cm cm) : + + MMode/2D Measurements & Calculations FS: 34.2 % Ao root area: 4.2 cm2 EDV(Teich): 80.4 ml ESV(Teich): 29.3 ml Doppler Measurements & Calculations MV E max debora: Ao V2 max: LV V1 max PG: PA V2 max: 60.0 cm/sec 125.0 cm/sec 3.8 mmHg 104.0 cm/sec MV A max debora: Ao max P.3 mmHgLV V1 max: PA max P.3 mmHg 67.9 cm/sec 97.0 cm/sec MV E/A: 0.88 RV V1 max: 78.6 cm/sec Electronically signed by: Jinny Zepeda MD 09/29/2023 05:41 PM ____ XR Chest 1 Vw Portable Result Date: 09/28/2023 Narrative: EXAM DESCRIPTION: XR CHEST 1 VIEW REASON FOR STUDY: Alcohol withdrawal Pt c/o CP since this morning. Pt reports drinking heavy for 7 days. Pt has hx liver failure. AOx4. TECHNIQUE: Single radiographic view(s) of the chest. COMPARISON: 11/08/2021. FINDINGS: LUNGS: No focal opacity, pleural effusion, or pneumothorax. HEART/MEDIASTINUM: Cardiac silhouette normal in size. Mediastinal and hilar contours appear normal. LINES/TUBES: None. BONES: No acute osseous abnormality. IMPRESSION: No acute cardiopulmonary abnormality. THIS IS AN ELECTRONICALLY VERIFIED FINAL REPORT 09/28/2023 11:37 PM - Electronically signed by Rolando Jade M.D., Sid.O. Rolando Jade M.D., Sid.O. MW T: Report ID: [id number] Reading Location: [place] [id number] Assessment and Plan: Alcohol dependence c/b withdrawal syndrome - patient from [facility] due to left hip fracture, was out on leave and began to consume alcohol heavily with approximately 20-30 beers per day - CIWA q.4 hours - Ativan per CIWA protocol - continue home dose Seroquel 12.5 mg p.o. t.i.d. - continue home dose Zoloft 50 mg p.o. daily - TTE: EF 55-60% - continuous telemetry monitoring with SpO2 monitoring - fall precautions - seizure precautions - IV NS Hyponatremia - resolved Hepatic cirrhosis - continue home dose propranolol 10 mg p.o. b.i.d. - continue home dose rifaximin 550 mg p.o. b.i.d. Abdominal pain - KUB - ondansetron PRN DVT Prophylaxis: SCDs Code Status: Full Code Disposition: anticipate discharge by weekend My total encounter time was 37 minutes which was spent in the activities documented in the note. This includes time spent prior to the visit and after the visit in direct care of the patient. This time does not include time spent in any separately reportable services. GRINDER TENDER GRINDER TENDER * Jazmín Leonardo - 09/30/2023 9:51 AM CST [facility]- PRS consulted for Alcohol Use Disorder-AUD/ETOH. PRS went to meet with PTto discuss outpatient treatment and resources. PT stated that he wanted PRS to meet him at his facility [facility] once a week and to help liaison between him and the facility. PRS explained her role and explained that she is here to help get him set up with resources or outpatient treatment but that PRS cannot meet him outside of hospital. PT asked PRS to come back this afternoon because he is tired and would like to rest. PT stated he is interested in getting help. PRS to followup this afternoon. Jazmín Leonardo, [facility] [phone] GRINDER TENDER * Zo Campbell, [facility] - 09/29/2023 11:35 AM CST Pharmacy Medication Reconciliation Note Patient Love Diaz is a 38 y.o. male who presents to [facility] 2 [id number]. The prior to admission home medication list was reviewed by pharmacy. Prior to Admission medications Medication Sig Start Date End Date Taking? Authorizing Provider hydrOXYzine (ATARAX) 25 mg tablet Take 1 tablet (25 mg total) by mouth 3 (three) times a day 06/07/23 Yes ProviderJacqueline MD QUEtiapine (SEROquel) 25 mg tablet Take 0.5 tablets (12.5 mg total) by mouth 3 (three) times a day 06/09/23 Yes ProviderJacqueline MD traZODone (DESYREL) 50 mg tablet Take 1 tablet (50 mg total) by mouth nightly 09/17/23 Yes ProviderJacqueline MD acetaminophen (TYLENOL) 500 mg tablet Take 2 tablets (1,000 mg total) by mouth every 8 (eight) hours as needed for pain ProviderJacqueline MD baclofen (LIORESAL) 10 mg tablet Take 1.5 tablets (15 mg total) by mouth 3 (three) times a day 08/15/22 Jacqueline Buchanan MD busPIRone (BUSPAR) 5 mg tablet Take 1 tablet (5 mg total) by mouth 2 (two) times a day 08/03/22 Jacqueline Buchanan MD calcium carbonate (TUMS) 500 mg (200 mg elemental) chewable tablet Take 1 tablet/chew tab (500 mg total) by mouth 3 (three) times a day with meals Jacqueline Buchanan MD cholecalciferol (VITAMIN D-3) 5,000 unit capsule Take 1 capsule (5,000 Units total) by mouth daily Jacqueline Buchanan MD diclofenac sodium (VOLTAREN) 1 % gel Apply 2 g topically 4 (four) times a day as needed (pain) Jacqueline Buchanan MD Enulose 10 gram/15 mL solution Take 30 mL (20 g total) by mouth 3 (three) times a day 08/16/22 Jacqueline Buchanan MD ferrous sulfate 325 mg (65 mg of elemental iron) tablet Take 1 tablet (325 mg total) by mouth daily07/30/22 Jacqueline Buchanan MD folic acid (FOLVITE) 1 mg tablet Take 1 tablet (1 mg total) by mouth daily 08/03/22 Jacqueline Buchanan MD furosemide (LASIX) 40 mg tablet Take 1 tablet (40 mg total) by mouth 2 (two) times a day 08/25/22 Jacqueline Buchanan MD gabapentin (NEURONTIN) 400 mg capsule Take by mouth 3 (three) times a day 08/18/22 Jacqueline Buchanan MD melatonin tablet Take 2 tablets (6 mg total) by mouth nightly as needed Jacqueline Buchanan MD mirtazapine (REMERON) 7.5 mg tablet 08/11/22 Jacqueline Buchanan MD ondansetron (ZOFRAN) 4 mg tablet Take 1 tablet (4 mg total) by mouth every 8 (eight) hours as needed for nausea or vomiting Jacqueline Buchanan MD potassium chloride ER 20 mEq CR tablet Take 1 tablet (20 mEq total) by mouth daily 08/24/22 Jacqueline Buchanan MD propranoloL (INDERAL) 10 mg tablet Take 1 tablet (10 mg total) by mouth 2 (two) times a day Jacqueline Buchanan MD sertraline (ZOLOFT) 50 mg tablet Take 1 tablet (50 mg total) by mouth every morning Jacqueline Buchanan MD spironolactone (ALDACTONE) 100 mg tablet Take 1 tablet (100 mg total) by mouth daily 07/30/22 Jacqueline Buchanan MD sucralfate (CARAFATE) suspension 1 gram/10 mL Take 10 mL (1 g total) by mouth 3 (three) times a dayProviJacqueline arroyo MD thiamine (VITAMIN B1) 100 mg tablet Take 1 tablet (100 mg total) by mouth daily Jacqueline Buchanan MD traMADoL (ULTRAM) 50 mg tablet Take 1 tablet (50 mg total) by mouth every 6 (six) hours 08/05/22 Jacqueline Buchanan MD Xifaxan 550 mg tablet Take 1 tablet (550 mg total) by mouth 2 (two) times a day 08/24/22 Jacqueline Buchanan MD The patient???s home medication list has been reconciled and updated as follows: - Orders that were discontinued: Pantoprazole Acidophilus Bupropion Citalopram - Orders that were added: Sertraline - Orders that were changed (doses/frequency/formulation): Acetaminophen to 500 mg x 2 (1000 mg) Q8H PRN Baclofen to 10 mg x 1.5 (15 mg) TID Buspirone to BID Calcium carbonate to TID Diclofenac gel to QID PRN Enulose to 30 ml TID Ferrous sulfate to daily Folic acid to daily Furosemide to BID Gabapentin to 400 mg TID Melatonin to 6 mg qHS PRN Mirtazapine, noted absent from facility list. Potassium to daily Propranolol to BID Spironolactone to daily Sucralfate to suspension TID Tramadol to Q6H scheduled Trazodone to qHS Xifaxan to BID - Additional comments/recommendations: Confirmed medications against med list provided by [facility] Per facility RN patient has resided there since 05-28-22. Patient presently on JOY starting approximately 09-21-23 set to end and with medications(minus tramadol) to last through 09-24-23. Sources of information for this medication reconciliation include: care facility and medication list Haresh Lambert CPhT 09/29/2023 11:12 AM Pharmacist reviewed patient's medication history as completed by telecom field technician and verified accuracy and completeness. Documentation updated accordingly. Zo Campbell RPh 09/29/2023 11:35 AM GRINDER TENDER * Kareem Blancas - 09/29/2023 9:41 AM CST Pt did not indicate a desire for spiritual support. 09/29/23 0900 Time Spent Start Time 0941 Patient Spiritual Assessment Spirituality Assessed Yes Restorationism Affiliation [employer]an Clinical Encounter Type Visited With Patient Response Type Routine visit GRINDER TENDER * Javy Chung, BIOANALYST - 09/29/2023 9:14 AM CST Went to get some information from the pt re: residence, and if nursing facility, what he was there for. He was at [facility] but was out on a 7 day therapeutic leave , during whichhe drank heavily. Was there for left hip fx and has walker in room. Said he has excruciating pain with walking. Reports that he doesn't do drugs but drinks and smokes. Plans to go back to [facility] at d/c. Reports that the plan was to return on Wednesday. I asked if he would be interested in speaking with our medical stabilization team re: drinking issues. He said yes but requested not today. Feels terrible, but can talk to them tomorrow. Will contact [place] and the med. Stab. Team. GRINDER TENDER * Manuelito Hannah MD - 09/29/2023 1:38 AM CST ED signs out 38-year-old male with past medical history of who presents to emergency room chief complaint of heavy alcohol use of recent, diffuse body aches. Last alcoholic beverage morning of presentation. Most recent CIWA reported 16 Vitals reviewed: 2 of 4 sirs criteria, heart rate greater than 90 beats per minute maintaining in the 100s to 1 teens, respirations in the low to mid 20s. Blood pressure stable within normal limits. Afebrile. Maintaining appropriate O2 saturations on room air. 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 Full H&P to follow with daytime hospitalist. Holding orders placed based on ED sign-out and chart review. - Manuelito Hannah MD GRINDER TENDER documented in this encounter H&P Notes * Isidra Vega NP - 09/29/2023 9:12 AM CST Images from the original note were not included. History & Physical Date of Service: 09/29/2023 Primary Care Provider: Major Dotson MD [phone] CHIEF COMPLAINT: Presents to the ED with a chief complaint of alcohol withdrawal. HPI: Patient is a 38 y.o. male with a PMHx significant for alcoholism and cirrhosis. Patient presents tot emergency department with alcohol withdrawal. Patient had been at [facility] and re[facility] but was on a 7 day leave when he began drinking heavily. Patient states he has been drinking 20-30 beers per day. He was at [facility] after sustaining a hip fracture. His last alcohol use was yesterday. He currently denies chest pain, shortness breath, nausea, vomiting, diarrhea. He does endorse right upper quadrant pain and states that has been chronic. Notable labs include sodium 133, AST 98, ALT 71, WBC 11.6 with repeat 8.4, ethanol 94 with repeat of 40, UDS negative, and urinalysis shows kailyn cloudy urine with 1+ ketones and 2.0 urobilinogen. While in the ED, patient received aspirin 324 mg p.o., Librium 100 mg p.o., Ativan 1 mg IV, Ativan 2 mg IV, folic acid 1 mg p.o., clonidine 0.2 mg patch, Zofran 4 mg IV x2, 2 L normal saline IV bolus, thiamine and folic acid IV, thiamine p.o. 100 mg, and oxycodone 5 mg p.o. Data analysis -Independent historian and chart review -Patient seen and evaluated, available studies reviewed -Prior available records reviewed, triage/progress notes reviewed Past Medical History: Diagnosis Date Alcoholism (CMS/HCC) (HCC) Cirrhosis (HCC) Gastric reflux Peptic ulceration History reviewed. No pertinent surgical history. Medications Prior to Admission Medication Sig Dispense Refill Last Dose buPROPion (WELLBUTRIN) 75 mg tablet Take 1 tablet (75 mg total) by mouth 2 (two) times a day 11 hydrOXYzine (ATARAX) 25 mg tablet Take 1 tablet (25 mg total) by mouth 3 (three) times a day QUEtiapine (SEROquel) 25 mg tablet Take 0.5 tablets (12.5 mg total) by mouth 3 (three) times a day traZODone (DESYREL) 50 mg tablet 11 acetaminophen (TYLENOL) 500 mg tablet Take 1 tablet (500 mg total) by mouth every 6 (six) hours as needed for pain 09/28/2023 acidophilus-pectin, citrus 100 million cell-10 mg capsule Take 1 capsule by mouth 2 (two) times a day baclofen (LIORESAL) 10 mg tablet Past Month busPIRone (BUSPAR) 5 mg tablet Past Month calcium carbonate (TUMS) 500 mg (200 mg elemental) chewable tablet Take 1 tablet/chew tab (500 mg total) by mouth daily Past Month cholecalciferol (VITAMIN D-3) 5,000 unit capsule Take 1 capsule (5,000 Units total) by mouth daily Past Month citalopram (CeleXA) 10 mg tablet Past Month diclofenac sodium (VOLTAREN) 1 % gel Apply topically 4 (four) times a day Unknown Enulose 10 gram/15 mL solution Past Month ferrous sulfate 325 mg (65 mg of elemental iron) tablet Past Month folic acid (FOLVITE) 1 mg tablet Past Month furosemide (LASIX) 40 mg tablet Past Month gabapentin (NEURONTIN) 300 mg capsule Past Month melatonin tablet Take by mouth Past Month mirtazapine (REMERON) 7.5 mg tablet Past Month ondansetron (ZOFRAN) 4 mg tablet Take 1 tablet (4 mg total) by mouth every 8 (eight) hours as needed for nausea or vomiting Unknown pantoprazole DR (PROTONIX) 40 mg EC tablet Past Month potassium chloride ER 20 mEq CR tablet Past Month propranoloL (INDERAL) 10 mg tablet Take 1 tablet (10 mg total) by mouth 3 (three) times a day Past Month spironolactone (ALDACTONE) 100 mg tablet Past Month sucralfate (CARAFATE) 1 gram tablet TAKE 1 TABLET BY MOUTH BEFORE MEALS AND AT BEDTIME Past Month thiamine (VITAMIN B1) 100 mg tablet Take 1 tablet (100 mg total) by mouth daily Past Month traMADoL (ULTRAM) 50 mg tablet Past Month Xifaxan 550 mg tablet Past Month Allergies Allergen Reactions Mushroom Unknown Peanut Unknown Social History Tobacco Use Smoking status: Every Day Packs/day: 0.25 Years: 18.00 Additional pack years: 0.00 Total pack years: 4.50 Types: Cigarettes Smokeless tobacco: None Substance and Sexual Activity Drug use: Yes Types: Alcohol Comment: 20-30 beers/day Sexual activity: Defer Alcohol Use: Alcohol Misuse (09/29/2023) AUDIT-C Frequency of Alcohol Consumption: Monthly or less Average Number of Drinks: 10 or more Frequency of Binge Drinking: Daily or almost daily Family History Problem Relation Age of Onset No Known Problems Mother No Known Problems Father Review of Systems: Review of Systems HENT: Negative for congestion. Respiratory: Negative for cough and shortness of breath. Cardiovascular: Negative for chest pain and palpitations. Gastrointestinal: Positive for abdominal pain (right upper quadrant). Negative for diarrhea, nauseaand vomiting. Musculoskeletal: Negative for myalgias. Skin: Negative for pallor and rash. Neurological: Negative for dizziness and light-headedness. Psychiatric/Behavioral: Negative for confusion and hallucinations. OBJECTIVE: Vitals: Arrival Vitals Temp 09/28/23 1826 36.4 ??C (97.6 ??F) Pulse 09/28/23 1826 125 Resp 09/28/23 1826 30 BP 09/28/23 1826 (!) 168/106 SpO2 09/28/23 1826 100 % Temp src 09/28/23 182 Oral Heart Rate Source 09/28/232031 Monitor Patient Position 09/28/23 182 Sitting BP Location 09/28/23 1826 Left arm FiO2 (%) -- Most Recent : Vitals: 09/29/23 0236 09/29/23 0255 09/29/23 0555 09/29/23 0729 BP: 147/80 144/87 140/88 BP Location: Left arm Left arm Right arm Patient Position: Lying Lying Lying Pulse: 102 94 96 Resp: 22 20 20 Temp: 36.7 ??C (98.1 ??F) 37 ??C (98.6 ??F) 36.6 ??C (97.9 ??F) TempSrc: Oral Oral SpO2: 98% 96% 97% Weight: 87.6 kg (193 lb 2 oz) Height: No intake/output data recorded. No intake/output data recorded. Physical Exam: Physical Exam Vitals and nursing note reviewed. Constitutional: Comments: Patient is drowsy but arouses easily to verbal stimuli, disheveled HENT: Head: Normocephalic and atraumatic. Eyes: Extraocular Movements: Extraocular movements intact. Pupils: Pupils are equal, round, and reactive to light. Neck: Vascular: No JVD. Cardiovascular: Rate and Rhythm: Tachycardia present. Pulses: Radial pulses are 2+ on the right side and 2+ on the left side. Heart sounds: Normal heart sounds. No murmur heard. Pulmonary: Effort: Pulmonary effort is normal. No tachypnea or accessory muscle usage. Breath sounds: Normal breath sounds. No decreased breath sounds, wheezing or rales. Abdominal: General: Bowel sounds are normal. Palpations: Abdomen is soft. Tenderness: There is abdominal tenderness (right upper quadrant). Musculoskeletal: General: Normal range of motion. Cervical back: Normal range of motion and neck supple. Right lower leg: No edema. Left lower leg: No edema. Skin: General: Skin is warm and dry. Coloration: Skin is not pale. Neurological: General: No focal deficit present. Mental Status: He is oriented to person, place, and time. Cranial Nerves: No facial asymmetry. Motor: Tremor present. Psychiatric: Attention and Perception: Attention normal. He does not perceive auditory or visual hallucinations. Mood and Affect: Mood normal. Lab/Radiology/Diagnostic Review: Recent Results (from the past 24 hour(s)) CBC with auto differential Collection Time: 09/28/23 6:43 PM Result Value Ref Range WBC 11.6 (H) 3.8 - 9.9 K/cumm Hgb 15.5 13.0 - 17.5 g/dL Hct 42.4 38.9 - 50.3 % Plt 212 150 - 400 K/cumm MPV 9.4 9.1 - 12.3 fL RBC 4.83 4.30 - 5.80 M/cumm MCV 87.8 81.3 - 96.4 fL MCH 32.1 27.1 - 33.3 pg MCHC 36.6 (H) 32.3 - 35.7 g/dL RDW CV 12.5 11.1 - 14.9 % RDW SD 39.8 35.7 - 48.1 fL NRBC abs 0.00 0.00 - 0.01 K/cumm Comprehensive metabolic panel Collection Time: 09/28/23 6:43 PM Result Value Ref Range Sodium 133 (L) 135 - 145 mmol/L Potassium, pl 3.5 3.3 - 4.9 mmol/L Chloride 91 (L) 97 - 110 mmol/L CO2 20 (L) 22 - 32 mmol/L Anion gap 22 (H) 2 - 15 mmol/L BUN 6 6 - 25 mg/dL Creatinine 0.70 (L) 0.80 - 1.30 mg/dL Glucose 93 70 - 199 mg/dL Calcium 8.9 8.5 - 10.3 mg/dL Bilirubin, total 1.3 (H) 0.1 - 1.2 mg/dL Protein, pl 8.2 6.5 - 8.5 g/dL Albumin 4.2 3.5 - 5.0 g/dL Alk phos 96 40 - 130 Units/L ALT 71 (H) 7 - 55 Units/L AST 98 (H) 10 - 50 Units/L Troponin T high-sensitivity series (baseline, 2hr, 4hr, 6hr) Collection Time: 09/28/23 6:43 PM Result Value Ref Range Trop T hs 8 <=22 ng/L Ethanol Collection Time: 09/28/23 6:43 PM Result Value Ref Range Ethanol 94 (H) <=10 mg/dL Differential, auto Collection Time: 09/28/23 6:43 PM Result Value Ref Range Neutrophil abs 8.3 (H) 1.7 - 6.5 K/cumm Imm gran abs 0.0 0.0 - 0.1 K/cumm Lymphocyte abs 1.9 0.8 - 3.3 K/cumm Monocyte abs 1.3 (H) 0.2 - 0.8 K/cumm Eosinophil abs 0.0 0.0 - 0.5 K/cumm Basophil abs 0.1 0.0 - 0.1 K/cumm Neutrophil pct 71.6 % Imm gran pct 0.3 % Lymphocyte pct 15.9 % Monocyte pct 11.3 % Eosinophil pct 0.3 % Basophil pct 0.6 % eGFR Collection Time: 09/28/23 6:43 PM Result Value Ref Range eGFR 120 mL/min/1.73 m2 Drugs of Abuse Screen, Urine without Confirmation Collection Time: 09/28/23 7:29 PM Result Value Ref Range Amphetamine, ur Not Detected CutOff 500ng/mL Barbiturates, ur Not Detected CutOff 200ng/mL Benzodiazepines, ur Not Detected CutOff 100ng/mL Cannabinoids, ur Not Detected CutOff 50 ng/mL Cocaine, ur Not Detected CutOff 150ng/mL Fentanyl, Ur Not Detected Cutoff 1 ng/mL Methadone, ur Not Detected CutOff 300ng/mL Opiates, ur Not Detected CutOff 300ng/mL Oxycodone, ur Not Detected CutOff 100ng/mL Phencyclidine, ur Not Detected CutOff 25 ng/mL Urine Creatinine 258 mg/dL Urinalysis reflex to microscopic Collection Time: 09/28/23 7:30 PM Result Value Ref Range Color, ur Kailyn Yellow Clarity, ur Cloudy (A) Clear Specific gravity, ur 1.020 1.003 - 1.030 pH, urine 5.0 Protein, ur ql Negative Negative Glucose, ur ql Negative Negative Ketones, ur 1+ (A) Negative Bilirubin, ur Negative Negative Blood, ur Negative Negative Urobilinogen, ur 2.0 (A) <2.0 mg/dL Nitrite, ur Negative Negative Leukocyte esterase, ur Negative Negative UA reflex comment Reflex conditions for microscopic UA not met. Troponin T high-sensitivity 2-hour Collection Time: 09/28/23 9:02 PM Result Value Ref Range Trop T hs 10 <=22 ng/L Trop T hs delta 2 ng/L Trop T hs interp Insignificant Acetaminophen level Collection Time: 09/28/23 9:02 PM Result Value Ref Range Acetaminophen <5 <=5 mcg/mL Ethanol Collection Time: 09/28/23 9:02 PM Result Value Ref Range Ethanol 40 (H) <=10 mg/dL Salicylate level Collection Time: 09/28/23 9:02 PM Result Value Ref Range Salicylate 1.3 (H) <=1.0 mg/dL Troponin T high-sensitivity 4-hour Collection Time: 09/28/23 10:30 PM Result Value Ref Range Trop T hs 8 <=22 ng/L Trop T hs delta 0 ng/L Trop T hs interp Insignificant Troponin T high-sensitivity 6-hour Collection Time: 09/29/23 12:51 AM Result Value Ref Range Trop T hs 8 <=22 ng/L Trop T hs delta 0 ng/L Trop T hs interp Insignificant Comprehensive metabolic panel Collection Time: 09/29/23 5:37 AM Result Value Ref Range Sodium 134 (L) 135 - 145 mmol/L Potassium, pl 3.4 3.3 - 4.9 mmol/L Chloride 99 97 - 110 mmol/L CO2 22 22 - 32 mmol/L Anion gap 13 2 - 15 mmol/L BUN 10 6 - 25 mg/dL Creatinine 0.60 (L) 0.80 - 1.30 mg/dL Glucose 75 70 - 199 mg/dL Calcium 8.2 (L) 8.5 - 10.3 mg/dL Bilirubin, total 1.8 (H) 0.1 - 1.2 mg/dL Protein, pl 7.0 6.5 - 8.5 g/dL Albumin 3.7 3.5 - 5.0 g/dL Alk phos 80 40 - 130 Units/L ALT 54 7 - 55 Units/L AST 69 (H) 10 - 50 Units/L Magnesium Collection Time: 09/29/23 5:37 AM Result Value Ref Range Magnesium 1.9 1.4 - 2.5 mg/dL Phosphorus Collection Time: 09/29/23 5:37 AM Result Value Ref Range Phosphorus, pl 3.2 2.3 - 4.5 mg/dL CBC without differential Collection Time: 09/29/23 5:37 AM Result Value Ref Range WBC 8.4 3.8 - 9.9 K/cumm Hgb 12.7 (L) 13.0 - 17.5 g/dL Hct 36.2 (L) 38.9 - 50.3 % Plt 134 (L) 150 - 400 K/cumm MPV 11.4 9.1 - 12.3 fL RBC 3.97 (L) 4.30 - 5.80 M/cumm MCV 91.2 81.3 - 96.4 fL MCH 32.0 27.1 - 33.3 pg MCHC 35.1 32.3 - 35.7 g/dL RDW CV 13.1 11.1 - 14.9 % RDW SD 42.7 35.7 - 48.1 fL NRBC abs 0.00 0.00 - 0.01 K/cumm Salicylate level Collection Time: 09/29/23 5:37 AM Result Value Ref Range Salicylate <1.0 <=1.0 mg/dL Lipase Collection Time: 09/29/23 5:37 AM Result Value Ref Range Lipase 64 10 - 99 Units/L eGFR Collection Time: 09/29/23 5:37 AM Result Value Ref Range eGFR 126 mL/min/1.73 m2 Influenza A/B, RSV, and COVID-19 PCR Nasopharyngeal Collection Time: 09/29/23 6:00 AM Specimen: Nasopharyngeal Result Value Ref Range COVID-19 RNA Negative Negative Influenza A RNA Negative Negative Influenza B RNA Negative Negative RSV RNA Negative Negative XR Chest 1 Vw Portable Result Date: 09/28/2023 Narrative: EXAM DESCRIPTION: XR CHEST 1 VIEW REASON FOR STUDY: Alcohol withdrawal Pt c/o CP since this morning. Pt reports drinking heavy for 7 days. Pt has hx liver failure. AOx4. TECHNIQUE: Single radiographic view(s) of the chest. COMPARISON: 11/08/2021. FINDINGS: LUNGS: No focal opacity, pleural effusion, or pneumothorax. HEART/MEDIASTINUM: Cardiac silhouette normal in size. Mediastinal and hilar contours appear normal. LINES/TUBES: None. BONES: No acute osseous abnormality. IMPRESSION: No acute cardiopulmonary abnormality. THIS IS AN ELECTRONICALLY VERIFIED FINAL REPORT 09/28/2023 11:37 PM - Electronically signed by Rolando Jade M.D., D.O. Rolando Jade M.D., Sid.O. T: Report ID: [id number] Reading Location: [id number] ASSESSMENT/PLAN: Principal Problem: Alcohol withdrawal syndrome with complication (HCC) Active Problems: Hepatic cirrhosis (HCC) Hyponatremia Resolved Problems: No resolved hospital problems. Alcohol withdrawal syndrome - patient from [facility] due to left hip fracture, was out on leave and began to consume alcohol heavily with approximately 20-30 beers per day - ethanol 94, 40 - status post Librium 100 mg p.o. administered in the ED - status post clonidine 0.2 mg patch applied in the ED, change to 7 days - status post Ativan 1 mg IV x2, 2 mg x 1 administered in the ED - status post Zofran 4 mg IV x2 administered in the ED - status post 2 L normal saline IV bolus administered in the ED - thiamine 100 mg, folic acid 1 mg IV administered in the ED - thiamine 100 mg PO administered in the ED - CIWA q.4 hours - Ativan per CIWA protocol - continue home dose Seroquel 12.5 mg p.o. t.i.d. - continue home dose Zoloft 50 mg p.o. daily - TTE ordered - vital signs q.4 hours - continuous telemetry monitoring with SpO2 monitoring - CBC, BMP in the a.m. - fall precautions - seizure precautions Hyponatremia - sodium 133 - status post 2 L normal saline IV bolus administered in the ED - status post continuous normal saline IV infusion at 100 mL/hour initiated in the ED - BMP in a.m. Hepatic cirrhosis - AST 98, ALT 71, bilirubin 1.3 - continue home dose propranolol 10 mg p.o. b.i.d. - continue home dose rifaximin 550 mg p.o. b.i.d. - BMP in the a.m. No Order Explanation of disposition: Results and plan explained to the patient with understanding and agreement. All questions answered ESTIMATED LENGTH OF STAY: Greater than 2 midnights DVT prophylaxis: SCDs Diet: NPO with ice chips Consults: Dietitian, social work, behavioral health Advance Care Planning Advance Care Planning Conversation Pertinent diagnoses: Alcohol withdrawal syndrome The patient and/or family consented to a voluntary Advance Care Planning conversation. Individuals present for the conversation: patient Summary of the conversation: In the event the patient's heart or lungs were to stop working they would like everything done including but not limited to chest compressions, intubation, defibrillation Outcome of the conversation and documents completed (select all that apply): Full code I spent 2 minutes providing separately identifiable ACP services with the patient and/or surrogate decision maker in a voluntary, in-person conversation discussing the patient's wishes and goals as detailed in the above note. My total encounter time on 09/29/2023 was 25 minutes which was spent in the activities documented inthe note. This includes time spent prior to the visit and after the visit in direct care of the patient. This time does not include time spent in any separately reportable services. Complexity: Moderate Voice recognition software [employer] may have been used to dictate and transcribe this document. Sql Etl Developer variances may occur. Despite proofreading, typographical errors may occur. Isidra Vega AGACNP-BC 09/29/2023 9:12 AM For patients or family members viewing this note through [employer]: This note was written as a communication tool between healthcare providers and may contain technical language, terminology and abbreviations that is difficult to interpret without advanced medical training. If you have questions or concerns regarding what is written in this note, please request to speak with the healthcare provider taking care of you or your family member. Cosigned by Donal Cabrera MD at 09/29/2023 6:10 PM MEAL GRINDER TENDER GRINDER TENDER GRINDER TENDER documented in this encounter Consult Notes * Yuko Ham, CHAPITO - 09/29/2023 1:40 PM CSTAssociated Order(s): IP CONSULT TO NUTRITION SERVICES NUTRITION ASSESSMENT Nutrition Status: Patient does not meet ASPEN criteria for malnutrition at this time. REASON FOR ASSESSMENT: Consult/Referral - At Risk MST Score Encounter Date: 09/29/23 3:40 PM Admission Date: 09/28/2023 LOS: 0 days HPI: Patient is a 38 y.o. male with history of alcoholism and cirrhosis. Patient presents to the emergency department with alcohol withdrawal. Patient had been at [facility] re[facility] but was on a7 day leave when he began drinking heavily. Patient states he has been drinking 20-30 beers per day. He was at [facility] after sustaining a hip fracture. Objective Past Medical History: Diagnosis Date Alcoholism (CMS/HCC) (HCC) Cirrhosis (HCC) Gastric reflux Peptic ulceration History reviewed. No pertinent surgical history. Social History Tobacco Use Smoking status: Every Day Packs/day: 0.25 Years: 18.00 Additional pack years: 0.00 Total pack years: 4.50 Types: Cigarettes Smokeless tobacco: None Substance and Sexual Activity Drug use: Yes Types: Alcohol Comment: 20-30 beers/day Sexual activity: Defer Alcohol Use: Alcohol Misuse (09/29/2023) AUDIT-C Frequency of Alcohol Consumption: Monthly or less Average Number of Drinks: 10 or more Frequency of Binge Drinking: Daily or almost daily MEDICATION/LAB REVIEW: Scheduled Meds: cloNIDine, 1 patch, transdermal, Weekly folic acid, 1 mg, oral, Daily propranoloL, 10 mg, oral, BID QUEtiapine, 12.5 mg, oral, TID rifAXIMin, 550 mg, oral, BID sertraline, 50 mg, oral, QAM sucralfate, 1 g, oral, TID with meals thiamine, 100 mg, oral, Daily Continuous Infusions: PRN Meds: influenza quadrivalent [id number] LORazepam OR LORazepam OR LORazepam OR LORazepam OR LORazepam OR LORazepam naloxone nicotine oxyCODONE polyethylene glycol ramelteon Recent Labs Lab Units 09/29/23 0537 SODIUM mmol/L 134* POTASSIUM PLASMA mmol/L 3.4 CHLORIDE mmol/L 99 CO2 mmol/L 22 BUN SERUM mg/dL 10 CREATININE mg/dL 0.60* [id number] mL/min/1.73 m2 126 CALCIUM mg/dL 8.2* ALBUMIN g/dL 3.7 PHOSPHORUS PLASMA mg/dL 3.2 MAGNESIUM mg/dL 1.9 Recent Labs Lab Units 09/29/23 0537 09/28/23 1843 GLUCOSE mg/dL 75 93 ALT Date Value Ref Range Status 09/29/2023 54 7 - 55 Units/L Final AST Date Value Ref Range Status 09/29/2023 69 (H) 10 - 50 Units/L Final Alk phos Date Value Ref Range Status 09/29/2023 80 40 - 130 Units/L Final Lipase Date Value Ref Range Status 09/29/2023 64 10 - 99 Units/L Final No results found for: HGBA1C , HDL , LDLCALC , CHOL , TRIG NURSING ASSESSMENT: Last BM Date: 09/27/23 Bowel Sounds (All Quadrants): Hypoactive Vincent Scale Score: 20 Vital Signs BP: 136/94 Temp: 36.7 ??C (98.1 ??F) Pulse: 88 Resp: 28 SpO2: 97 % Intake/Output Summary (Last 24 hours) at 09/29/2023 1540 Last data filed at 09/29/2023 1340 Gross per 24 hour Intake 0 ml Output 400 ml Net -400 ml Adult Malnutrition Scoring Tool (MST) What diet do you follow at home?: regular Have You Recently Lost Weight Without Trying?: Yes (Comment) How Much Weight Have You Lost?: 34 lb or more Have you been eating poorly because of a decreased appetite?: No Malnutrition Screening Tool (MST) Score: 4 Within the past 12 months, you worried that your food would run out before you got the money to buymore.: Never true Within the past 12 months, the food you bought just didn't last and you didn't have money to get more.: Never true Anthropometrics Weight: 87.6 kg (193 lb 2 oz) Admission Weight : 87.6 kg Weight Change: 24.09 kg (53.12 lbs) IBW/kg (Calculated) : 67.1 kg Height: 170.2 cm (5' 7 ) Weight in (lb) to have BMI = 25: 159.3 BMI (Calculated): 30.2 Wt Readings from Last 10 Encounters: 09/29/23 87.6 kg (193 lb 2 oz) 08/25/22 85.7 kg (189 lb) 11/08/21 88.5 kg (195 lb) ESTIMATED NEEDS: Total Energy Needs: 1925 kcal Total Energy Needs + Fever Factor: 1925 Equation Chosen to Use by RD:[place] Activity Factor: 1.1 Weight Used for Equation Calculations (RD Determined): 87.6 kg(193 lb 2 oz) . Total Protein Estimated Needs (gm): 80.52 Protein Needs Based on g/k.2 Type of Weight Used for Estimated Protein : [place] Total Fluid Estimated Needs: 2012 Fluid Needs Based on : 30 ml/kg Type of Weight Used for EstimatedFluid Needs: [place] Dietary Orders (From admission, onward) Start Ordered 09/30/23 0700 Oral Nutrition Supplements Select Supplement: Ensure PLUS High Protein - Any Flavor; Quantity (# of cans): 1 can With Breakfast Question Answer Comment Select Supplement: Ensure PLUS High Protein - Any Flavor Quantity (# of cans): 1 can 09/29/23 1452 09/29/23 1314 Adult Diet Regular Diet effective now Question: (MHB/MHE) Diet type Answer: Regular 09/29/23 1314 Allergies: Reviewed, Mushroom, Peanut - unknown reactions IMPRESSION: 09/29: RD consult for MST score of 4 (wt loss 34 lb or more). Met with Love who reports he just ordered a light dinner and notes I hope I can keep it down . Reports he was eating well at [facility] but has been eating poorly and struggling with nausea since he left (~1 week ago). Per H&P,was drinking 20- 30 beers per day. He reports he lost 20-25# during that week and thinks he is down to 170#. Admit weight of 140# was stated, not actual. Unknown weight method for 193# but visually appears accurate. Per chart review, weighed 189-199# for the past year up until ~6 weeks ago. Denies diarrhea or constipation. Last BM 09/27. He is interested in using protein supplements while he is feeling poorly and requested that protein juice I was getting in rehab . Reports he usually skips breakfast and agreed to Ensure Plus at breakfast, high protein juice with lunch and dinner. Patient is from home. Discharge pending hospital course. ASPEN MALNUTRITION ASSESSMENT: Date of completion: 09/29/23 ASPEN/AND Malnutrition Screening: Patient does not meet malnutrition criteria NUTRITION FOCUSED PHYSICAL EXAM: N/A NUTRITION DIAGNOSIS: Nutrition Diagnosis 1: Inadequate oral intake Related to: Other (comment), Loss of appetite, Vomiting (ETOH replacing more nutrient dense foods) Evidenced by: Patient interview, Inconsistent PO intakes INTERVENTION(S): Summary: Assess for nutrition changes, Education, nutrition, Encouragement, Initial assessment, Medical food supplement, Regular weights Ensure Plus High Protein daily with breakfast, High Protein Cranberry Juice with lunch and dinner. Daily weights ordered per MNT protocol - will help confirm any recent weight changes. GOAL(S): Oral intake to meet 75% estimated nutritional needs by next assessment, Tolerance of medical food supplement by next assessment MONITORING/EVALUATION: Appetite, Discharge plans, PO intake, Stool patterns, Supplement tolerance, Weight changes Diet Instructions Recommend to eat a generally healthy diet with foods that include a variety of fruits, vegetables, whole-grain breads, low-fat dairy products, beans, lean meats, and fish. Limit fast food, sugary drinks, excess salt, and desserts. Limit sugary drinks like lemonade, regular soda, Gatorade, and sweettea and drink water throughout the day. Call [phone] to speak with a dietitian about any diet related concerns. Additional resources are available online from the Academy of [employer] at www.eatright.org [address] GRINDER TENDER documented in this encounter Nursing Notes * Maya Lou RN - 10/05/2023 1:05 PM CST Patient given discharge instructions and questions answered. Report called to [facility]. All personal belongings gathered and sent with patient. Discharged via transport van. GRINDER TENDER * Yasir Hernandez Jr., RN - 10/02/2023 6:30 AM CST This RN agrees with assessments and charting of the DEFENSIVE FIRE CONTROL SYSTEMS OPERATOR this shift unless otherwise noted in the chart. GRINDER TENDER * Isabel Grewal RN - 10/01/2023 7:38 AM CST This RN agrees with assessments and charting of the DEFENSIVE FIRE CONTROL SYSTEMS OPERATOR this shift unless otherwise noted in the chart. GRINDER TENDER documented in this encounter ED Notes * Mansoor Valdes MD - 09/28/2023 10:20 PM CST HPI Chief Complaint Patient presents with Chest Pain History is noted triage note. I am hurting all over I have been drinking a lot 20-30 beers a day worse in the last week my last drink was this morning now I feel shaky I have no chest pain I am justhurting all over heavy drinking for the last 7 days. History provided by: Patient Weakness - Generalized Severity: Moderate Onset quality: Gradual Duration: 1 day Timing: Intermittent Progression: Waxing and waning Chronicity: Recurrent Context: alcohol use Context: not drug use Worsened by: Alcohol Relieved by: Nothing Ineffective treatments: None tried Associated symptoms: no abdominal pain, no arthralgias, no ataxia, no chest pain, no cough, no diarrhea, no difficulty walking, no dizziness, no dysuria, no numbness in extremities, no falls, no fever, no foul-smelling urine, no frequency, no headaches, no hematochezia, no lethargy, no loss of consciousness, no nausea, no seizures, no sensory-motor deficit, no shortness of breath, no stroke symptoms, no syncope and no vomiting Risk factors: no congestive heart failure and no coronary artery disease Risk factors comment: Alcohol withdrawal cirrhosis Patient History: There are no problems to display for this patient. Past Medical History: Diagnosis Date Alcoholism (CMS/HCC) (HCC) Cirrhosis (HCC) Gastric reflux Peptic ulceration History reviewed. No pertinent surgical history. Family History Problem Relation Age of Onset No Known Problems Mother No Known Problems Father Social History Tobacco Use Smoking status: Never Smokeless tobacco: None Substance and Sexual Activity Alcohol use: None Drug use: Not Currently Types: Alcohol Sexual activity: None Social History Social History Narrative Not on file Review of Systems Review of Systems Constitutional: Negative for chills and fever. HENT: Negative for ear pain and sore throat. Eyes: Negative for pain and visual disturbance. Respiratory: Negative for cough and shortness of breath. Cardiovascular: Negative for chest pain, palpitations and syncope. Gastrointestinal: Negative for abdominal pain, diarrhea, hematochezia, nausea and vomiting. Genitourinary: Negative for dysuria, frequency and hematuria. Musculoskeletal: Negative for arthralgias, back pain and falls. Skin: Negative for color change and rash. Neurological: Negative for dizziness, seizures, loss of consciousness, syncope and headaches. All other systems reviewed and are negative. Physical Exam ED Triage Vitals Temp Pulse Resp BP SpO2 09/28/23182509/28/23182509/28/23182509/28/23182509/28/231825 36.4 ??C (97.6 ??F) 125 30 (!) 168/106 100 % Temp src Heart Rate Source Patient Position BP Location FiO2 (%) 09/28/23182509/28/23203109/28/23182509/28/231825 -- Oral Monitor Sitting Left arm Height Height Method Weight Weight Method 09/28/23182509/28/23182509/28/23182509/28/231825 1.702 m (5' 7 ) Stated 63.5 kg (140 lb) Stated Physical Exam Vitals and nursing note reviewed. Constitutional: General: He is not in acute distress. Appearance: He is well-developed. He is ill-appearing. He is not toxic-appearing or diaphoretic. HENT: Head: Normocephalic and atraumatic. No raccoon eyes, Dawson's sign, right periorbital erythema or left periorbital erythema. Eyes: General: No scleral icterus. Conjunctiva/sclera: Conjunctivae normal. Cardiovascular: Rate and Rhythm: Regular rhythm. Tachycardia present. Heart sounds: No murmur heard. No gallop. Pulmonary: Effort: Pulmonary effort is normal. No tachypnea, accessory muscle usage, prolonged expiration, respiratory distress or retractions. Breath sounds: Normal breath sounds. No decreased breath sounds, wheezing, rhonchi or rales. Chest: Chest wall: No deformity, swelling, tenderness or crepitus. Abdominal: Palpations: Abdomen is soft. Tenderness: There is no abdominal tenderness. There is no right CVA tenderness, left CVA tenderness, guarding or rebound. Musculoskeletal: General: No swelling. Cervical back: Neck supple. No rigidity or crepitus. No pain with movement or spinous process tenderness. Right lower leg: No edema. Left lower leg: No edema. Skin: General: Skin is warm and dry. Capillary Refill: Capillary refill takes less than 2 seconds. Coloration: Skin is not ashen, cyanotic, jaundiced, mottled, pale or sallow. Neurological: General: No focal deficit present. Mental Status: He is alert. GCS: GCS eye subscore is 4. GCS verbal subscore is 5. GCS motor subscore is 6. Cranial Nerves: Cranial nerves 2-12 are intact. Sensory: Sensation is intact. Motor: Motor function is intact. Deep Tendon Reflexes: Reflex Scores: Tricep reflexes are 2+ on the right side and 2+ on the left side. Bicep reflexes are 2+ on the right side and 2+ on the left side. Brachioradialis reflexes are 2+ on the right side and 2+ on the left side. Patellar reflexes are 2+ on the right side and 2+ on the left side. Achilles reflexes are 2+ on the right side and 2+ on the left side. Psychiatric: Attention and Perception: Attention normal. Mood and Affect: Mood is anxious. Speech: Speech normal. Behavior: Behavior normal. Behavior is cooperative. Cognition and Memory: Cognition normal. MDM Medical Decision Making Generalized weakness generalized pain alcohol withdrawal symptoms dehydrated without psychoses Amount and/or Complexity of Data Reviewed Labs: ordered. Radiology: ordered. Risk Prescription drug management. ED Course as of 09/28/232315 Time: 09/28 2308 Comment: Alcohol withdrawal care over to Dr. James heart rate has trended down By: Mansoor Valdes MD Final diagnoses: None Mansoor Valdes MD 09/28/232315 GRINDER TENDER * Geo Reesndiz RN - 09/28/2023 6:33 PM CST Pt c/o CP since this morning. Pt reports drinking heavy for 7 days. Pt has hx liver failure. AOx4. GRINDER TENDER documented in this encounter Miscellaneous Notes * Plan of Care - Eliz Lambert RN - 10/05/2023 4:00 AM CST Goals: Clinical Goals for the Shift: Patient will remain hemodynamically stable. Summary: Problem: Lack of Knowledge: Goal: Ability to develop a pain control plan will improve Outcome: Progressing Goal: Ability to identify pain intensity on a pain scale and rate it consistently will improve Outcome: Progressing Goal: Ability to notify healthcare provider of pain before it becomes unmanageable or unbearable will improve Outcome: Progressing Problem: Medication: Goal: Satisfaction with pain management regimen will improve Outcome: Progressing Problem: Sensory: Goal: Ability to identify factors that increase the pain will improve Outcome: Progressing Goal: Pain level will decrease Outcome: Progressing Problem: Activity: Goal: Ability to return to normal activity level will improve Outcome: Progressing Problem: Lack of Knowledge: Goal: Knowledge of the prescribed therapeutic regimen will improve Outcome: Progressing Problem: Coping: Goal: Ability to cope will improve Outcome: Progressing Problem: Health Behavior: Goal: Identification of resources available to assist in meeting health care needs will improve Outcome: Progressing Problem: Sensory: Goal: Pain level will decrease Outcome: Progressing Problem: Health Behavior: Goal: Understanding of discharge needs will improve Outcome: Progressing Problem: Lack of Knowledge: Goal: Ability to state ways to decrease the risk of falls will improve Outcome: Progressing Problem: Safety: Goal: Will remain free from falls Outcome: Progressing Goal: Will remain free from injury from falls Outcome: Progressing Goal: Will remain free from falls and injury in home environment Outcome: Progressing Problem: Lack of Knowledge: Goal: Knowledge on safety and abstaining from self-injurious behavior will increase Outcome: Progressing Goal: Knowledge of therapies/resources will increase Outcome: Progressing Problem: Health Behavior: Goal: Ability to manage health-related needs will improve Outcome: Progressing Problem: Low Risk for Self-Injurious Behavior: Goal: Ability to remain free from injury will improve Description: (Low Risk) Outcome: Progressing Problem: Lack of Knowledge: Goal: Knowledge of disease or condition will improve Outcome: Progressing Goal: Understanding of discharge needs will improve Outcome: Progressing Problem: Health Behavior: Goal: Ability to identify changes in lifestyle to reduce recurrence of condition will improve Outcome: Progressing Goal: Identification of resources available to assist in meeting health care needs will improve Outcome: Progressing Problem: Physical Regulation: Goal: Ability to maintain clinical measurements within normal limits will improve Outcome: Progressing Goal: Complications related to the disease process, condition or treatment will be avoided or minimized Outcome: Progressing Problem: Respiratory: Goal: Ability to maintain adequate ventilation will improve Outcome: Progressing Problem: Safety: Goal: Ability to remain free from injury will improve Outcome: Progressing Problem: Activity: Goal: Risk for activity intolerance will decrease Outcome: Progressing Problem: Lack of Knowledge: Goal: Knowledge of disease or condition will improve Outcome: Progressing Goal: Ability to state and carry out methods to decrease the pain will improve Outcome: Progressing Problem: Nutritional: Goal: Nutritional status will be supported Outcome: Progressing Problem: Fluid Volume: Goal: Maintenance of adequate hydration will improve Outcome: Progressing Problem: Health Behavior: Goal: Ability to state signs and symptoms to report to health care provider will improve Outcome: Progressing Problem: Physical Regulation: Goal: Complications related to the disease process, condition or treatment will be avoided or minimized Outcome: Progressing Goal: Ability to maintain clinical measurements within normal limits will improve Outcome: Progressing Problem: Sensory: Goal: Ability to identify factors that increase the pain will improve Outcome: Progressing Goal: Ability to notify healthcare provider of pain before it becomes unmanageable or unbearable will improve Outcome: Progressing Goal: Pain level will decrease Outcome: Progressing Problem: Lack of Knowledge: Goal: Understanding of the prescribed diet will improve Outcome: Progressing Goal: Understanding of the effects of medication on diet and food interactions will improve Outcome: Progressing Problem: Health Behavior: Goal: Ability to identify and utilize available resources and services will improve Outcome: Progressing Problem: Nutritional: Goal: Consumption of the prescribed amount of daily calories will improve Outcome: Progressing Goal: Demonstration of interest in eating will improve Outcome: Progressing Problem: Physical Regulation: Goal: Achievement of adequate weight for body size and type will improve Outcome: Progressing Goal: Diagnostic test results will improve Outcome: Progressing Problem: Activity: Goal: Mobility will improve Outcome: Progressing Problem: Lack of Knowledge: Goal: Understanding of ways to prevent future skin breakdown will improve Outcome: Progressing Goal: Ability to identify appropriate dietary choices will improve Outcome: Progressing Problem: Nutritional: Goal: Dietary intake will improve Outcome: Progressing Goal: Ability to maintain a balanced intake and output will improve Outcome: Progressing Problem: Skin Integrity: Goal: Risk for impaired skin integrity will decrease Outcome: Progressing Goal: Ability to demonstrate warm and dry skin will improve Outcome: Progressing Goal: Circulation will improve to fullest extent possible Outcome: Progressing GRINDER TENDER * Plan of Jovita - Maya Lou, ALFREDO - 10/04/2023 5:00 PM CST Problem: Lack of Knowledge: Goal: Ability to develop a pain control plan will improve Outcome: Progressing Problem: Medication: Goal: Satisfaction with pain management regimen will improve Outcome: Progressing Problem: Sensory: Goal: Ability to identify factors that increase the pain will improve Outcome: Progressing Goals: Clinical Goals for the Shift: Pain management Summary: Patient reported pain that was well controled with PRN medications. Appealing his discharge due to his concern for continued withdraw symptoms. VSS. Patient is resting comfortably in chair. GRINDER TENDER * Plan of Care - Sharla Castellon RN - 10/03/2023 1:53 PM CST Problem: Lack of Knowledge: Goal: Ability to develop a pain control plan will improve 10/03/2023 135 by Sharla Castellon RN Outcome: Progressing 10/03/2023 135 by Sharla Castellon RN Outcome: Progressing Goal: Ability to identify pain intensity on a pain scale and rate it consistently will improve 10/03/20231352 by Sharla Castellon RN Outcome: Progressing 10/03/2023 135 by Sharla Castellon RN Outcome: Progressing Goal: Ability to notify healthcare provider of pain before it becomes unmanageable or unbearable will improve 10/03/2023 135 by Sharla Castellon RN Outcome: Progressing 10/03/2023 135 by Sharla Castellon RN Outcome: Progressing Problem: Medication: Goal: Satisfaction with pain management regimen will improve 10/03/2023 135 by Sharla Castellon RN Outcome: Progressing 10/03/2023 135 by Sharla Castellon RN Outcome: Progressing Problem: Sensory: Goal: Ability to identify factors that increase the pain will improve 10/03/2023 135 by Sharla Castellon RN Outcome: Progressing 10/03/2023 135 by Castellon, Sharla B., RN Outcome: Progressing Goal: Pain level will decrease 10/03/2023 135 by Sharla Castellon, RN Outcome: Progressing 10/03/2023 135 by Sharla Castellon, RN Outcome: Progressing Problem: Activity: Goal: Ability to return to normal activity level will improve 10/03/20231352 by Sharla Castellon, RN Outcome: Progressing 10/03/20231352 by Sharla Castellon, RN Outcome: Progressing Problem: Lack of Knowledge: Goal: Knowledge of the prescribed therapeutic regimen will improve 10/03/20231352 by Sharla Castellon, RN Outcome: Progressing 10/03/20231352 by Sharla Castellon, RN Outcome: Progressing Problem: Coping: Goal: Ability to cope will improve 10/03/20231352 by Sharla Castellon, RN Outcome: Progressing 10/03/20231352 by Sharla Castellon, RN Outcome: Progressing Problem: Health Behavior: Goal: Identification of resources available to assist in meeting health care needs will improve 10/03/20231352 by Sharla Castellon RN Outcome: Progressing 10/03/20231352 by Sharla Castellon, RN Outcome: Progressing Problem: Sensory: Goal: Pain level will decrease 10/03/20231352 by Sharla Castellon, RN Outcome: Progressing 10/03/2023 135 by Sharla Castellon, RN Outcome: Progressing Problem: Health Behavior: Goal: Understanding of discharge needs will improve 10/03/20231352 by Sharla Castellon, RN Outcome: Progressing 10/03/20231352 by Sharla Castellon, RN Outcome: Progressing Problem: Lack of Knowledge: Goal: Ability to state ways to decrease the risk of falls will improve 10/03/20231352 by Sharla Castellon, RN Outcome: Progressing 10/03/20231352 by Sharla Castellon, RN Outcome: Progressing Problem: Safety: Goal: Will remain free from falls 10/03/20231352 by Sharla Castellon, RN Outcome: Progressing 10/03/2023 [facility] by Sharla Castellon RN Outcome: Progressing Goal: Will remain free from injury from falls 10/03/2023 [facility] by Sharla Castellon RN Outcome: Progressing 10/03/2023 [facility] by Sharla Castellon, RN Outcome: Progressing Goal: Will remain free from falls and injury in home environment 10/03/2023 [facility] by Sharla Castellon, RN Outcome: Progressing 10/03/2023 [facility] by Sharla Castellon RN Outcome: Progressing Problem: Lack of Knowledge: Goal: Knowledge on safety and abstaining from self-injurious behavior will increase 10/03/2023 [facility] by Sharla Castellon, RN Outcome: Progressing 10/03/2023 [facility] by Sharla Castellon RN Outcome: Progressing Goal: Knowledge of therapies/resources will increase 10/03/2023 [facility] by Sharla Castellon RN Outcome: Progressing 10/03/2023 [facility] by Sharla Castellon RN Outcome: Progressing Problem: Health Behavior: Goal: Ability to manage health-related needs will improve 10/03/20231352 by Sharla Castellon RN Outcome: Progressing 10/03/2023 [facility] by Sharla Castellon RN Outcome: Progressing Problem: Low Risk for Self-Injurious Behavior: Goal: Ability to remain free from injury will improve Description: (Low Risk) 10/03/2023 [facility] by Sharla Castellon RN Outcome: Progressing 10/03/2023 [facility] by Sharla Castellon RN Outcome: Progressing Problem: Lack of Knowledge: Goal: Knowledge of disease or condition will improve 10/03/2023 [facility] by Sharla Castellon RN Outcome: Progressing 10/03/2023 [facility] by Sharla Castellon RN Outcome: Progressing Goal: Understanding of discharge needs will improve 10/03/20231352 by Sharla Castellon, RN Outcome: Progressing 10/03/2023 [facility] by Sharla Castellon, RN Outcome: Progressing Problem: Health Behavior: Goal: Ability to identify changes in lifestyle to reduce recurrence of condition will improve 10/03/2023 [facility] by Sharla Castellon RN Outcome: Progressing 10/03/20231352 by Sharla Castellon RN Outcome: Progressing Goal: Identification of resources available to assist in meeting health care needs will improve 10/03/20231352 by Sharla Castellon RN Outcome: Progressing 10/03/20231352 by Sharla Castellon RN Outcome: Progressing Problem: Physical Regulation: Goal: Ability to maintain clinical measurements within normal limits will improve 10/03/20231352 by Sharla Castellon RN Outcome: Progressing 10/03/20231352 by Sharla Castellon RN Outcome: Progressing Goal: Complications related to the disease process, condition or treatment will be avoided or minimized 10/03/20231352 by Sharla Castellon RN Outcome: Progressing 10/03/2023 [facility] by Sharla Castellon RN Outcome: Progressing Problem: Respiratory: Goal: Ability to maintain adequate ventilation will improve 10/03/20231352 by Sharla Castellon RN Outcome: Progressing 10/03/20231352 by Sharla Castellon RN Outcome: Progressing Problem: Safety: Goal: Ability to remain free from injury will improve 10/03/20231352 by Sharla Castellon RN Outcome: Progressing 10/03/20231352 by Sharla Castellon RN Outcome: Progressing Problem: Activity: Goal: Risk for activity intolerance will decrease 10/03/20231352 by Sharla Castellon RN Outcome: Progressing 10/03/20231352 by Sharla Castellon RN Outcome: Progressing Problem: Lack of Knowledge: Goal: Knowledge of disease or condition will improve 10/03/20231352 by Sharla Castellon RN Outcome: Progressing 10/03/20231352 by Sharla Castellon RN Outcome: Progressing Goal: Ability to state and carry out methods to decrease the pain will improve 10/03/20231352 by Castellon, Sharla B., RN Outcome: Progressing 10/03/2023 [facility] by Sharla Castellon RN Outcome: Progressing Problem: Nutritional: Goal: Nutritional status will be supported 10/03/2023 [facility] by Sharla Castellon RN Outcome: Progressing 10/03/20231352 by Sharla Castellon RN Outcome: Progressing Problem: Fluid Volume: Goal: Maintenance of adequate hydration will improve 10/03/2023 [facility] by Sharla Castellon RN Outcome: Progressing 10/03/2023 [facility] by Sharla Castellon RN Outcome: Progressing Problem: Health Behavior: Goal: Ability to state signs and symptoms to report to health care provider will improve 10/03/2023 [facility] by Sharla Castellon RN Outcome: Progressing 10/03/20231352 by Sharla Castellon RN Outcome: Progressing Problem: Physical Regulation: Goal: Complications related to the disease process, condition or treatment will be avoided or minimized 10/03/2023 [facility] by Sharla Castellon RN Outcome: Progressing 10/03/20231352 by Sharla Castellon RN Outcome: Progressing Goal: Ability to maintain clinical measurements within normal limits will improve 10/03/2023 [facility] by Sharla aCstellon RN Outcome: Progressing 10/03/20231352 by Sharla Castellon RN Outcome: Progressing Problem: Sensory: Goal: Ability to identify factors that increase the pain will improve 10/03/2023 [facility] by Sharla Castellon RN Outcome: Progressing 10/03/2023 [facility] by Sharla Castellon RN Outcome: Progressing Goal: Ability to notify healthcare provider of pain before it becomes unmanageable or unbearable will improve 10/03/2023 [facility] by Sharla Castellon RN Outcome: Progressing 10/03/20231352 by Sharla Castellon RN Outcome: Progressing Goal: Pain level will decrease 10/03/20231352 by Sharla Castellon RN Outcome: Progressing 10/03/2023 [facility] by Sharla Castellon RN Outcome: Progressing Problem: Lack of Knowledge: Goal: Understanding of the prescribed diet will improve 10/03/2023 [facility] by Sharla Castellon RN Outcome: Progressing 10/03/2023 [facility] by Sharla Castellon RN Outcome: Progressing Goal: Understanding of the effects of medication on diet and food interactions will improve 10/03/2023 [facility] by Sharla Castellon RN Outcome: Progressing 10/03/2023 [facility] by Sharla Castellon RN Outcome: Progressing Problem: Health Behavior: Goal: Ability to identify and utilize available resources and services will improve 10/03/2023 [facility] by Sharla Castellon RN Outcome: Progressing 10/03/2023 [facility] by Sharla Castellon RN Outcome: Progressing Problem: Nutritional: Goal: Consumption of the prescribed amount of daily calories will improve 10/03/2023 [facility] by Sharla Castellon RN Outcome: Progressing 10/03/2023 [facility] by Sharla Castellon RN Outcome: Progressing Goal: Demonstration of interest in eating will improve 10/03/2023 [facility] by Sharla Castellon RN Outcome: Progressing 10/03/2023 [facility] by Sharla Castellon RN Outcome: Progressing Problem: Physical Regulation: Goal: Achievement of adequate weight for body size and type will improve 10/03/20231352 by Sharla Castellon RN Outcome: Progressing 10/03/2023 [facility] by Sharla Castellon RN Outcome: Progressing Goal: Diagnostic test results will improve 10/03/2023 [facility] by Sharla Castellon RN Outcome: Progressing 10/03/2023 [facility] by Sharla Castellon RN Outcome: Progressing Goals: Clinical Goals for the Shift: Pain management Summary: VSS, free from falls, ambulated to bathroom with 2 assist and walker/gait belt and tolerated well, CIWA done accordingly, pain management, IVfluids, GRINDER TENDER GRINDER TENDER * Plan of Sharla Yatse RN - 10/03/2023 1:53 PM CST Problem: Lack of Knowledge: Goal: Ability to develop a pain control plan will improve Outcome: Progressing Goal: Ability to identify pain intensity on a pain scale and rate it consistently will improve Outcome: Progressing Goal: Ability to notify healthcare provider of pain before it becomes unmanageable or unbearable will improve Outcome: Progressing Problem: Medication: Goal: Satisfaction with pain management regimen will improve Outcome: Progressing Problem: Sensory: Goal: Ability to identify factors that increase the pain will improve Outcome: Progressing Goal: Pain level will decrease Outcome: Progressing Problem: Activity: Goal: Ability to return to normal activity level will improve Outcome: Progressing Problem: Lack of Knowledge: Goal: Knowledge of the prescribed therapeutic regimen will improve Outcome: Progressing Problem: Coping: Goal: Ability to cope will improve Outcome: Progressing Problem: Health Behavior: Goal: Identification of resources available to assist in meeting health care needs will improve Outcome: Progressing Problem: Sensory: Goal: Pain level will decrease Outcome: Progressing Problem: Health Behavior: Goal: Understanding of discharge needs will improve Outcome: Progressing Problem: Lack of Knowledge: Goal: Ability to state ways to decrease the risk of falls will improve Outcome: Progressing Problem: Safety: Goal: Will remain free from falls Outcome: Progressing Goal: Will remain free from injury from falls Outcome: Progressing Goal: Will remain free from falls and injury in home environment Outcome: Progressing Problem: Lack of Knowledge: Goal: Knowledge on safety and abstaining from self-injurious behavior will increase Outcome: Progressing Goal: Knowledge of therapies/resources will increase Outcome: Progressing Problem: Health Behavior: Goal: Ability to manage health-related needs will improve Outcome: Progressing Problem: Low Risk for Self-Injurious Behavior: Goal: Ability to remain free from injury will improve Description: (Low Risk) Outcome: Progressing Problem: Lack of Knowledge: Goal: Knowledge of disease or condition will improve Outcome: Progressing Goal: Understanding of discharge needs will improve Outcome: Progressing Problem: Health Behavior: Goal: Ability to identify changes in lifestyle to reduce recurrence of condition will improve Outcome: Progressing Goal: Identification of resources available to assist in meeting health care needs will improve Outcome: Progressing Problem: Physical Regulation: Goal: Ability to maintain clinical measurements within normal limits will improve Outcome: Progressing Goal: Complications related to the disease process, condition or treatment will be avoided or minimized Outcome: Progressing Problem: Respiratory: Goal: Ability to maintain adequate ventilation will improve Outcome: Progressing Problem: Safety: Goal: Ability to remain free from injury will improve Outcome: Progressing Problem: Activity: Goal: Risk for activity intolerance will decrease Outcome: Progressing Problem: Lack of Knowledge: Goal: Knowledge of disease or condition will improve Outcome: Progressing Goal: Ability to state and carry out methods to decrease the pain will improve Outcome: Progressing Problem: Nutritional: Goal: Nutritional status will be supported Outcome: Progressing Problem: Fluid Volume: Goal: Maintenance of adequate hydration will improve Outcome: Progressing Problem: Health Behavior: Goal: Ability to state signs and symptoms to report to health care provider will improve Outcome: Progressing Problem: Physical Regulation: Goal: Complications related to the disease process, condition or treatment will be avoided or minimized Outcome: Progressing Goal: Ability to maintain clinical measurements within normal limits will improve Outcome: Progressing Problem: Sensory: Goal: Ability to identify factors that increase the pain will improve Outcome: Progressing Goal: Ability to notify healthcare provider of pain before it becomes unmanageable or unbearable will improve Outcome: Progressing Goal: Pain level will decrease Outcome: Progressing Problem: Lack of Knowledge: Goal: Understanding of the prescribed diet will improve Outcome: Progressing Goal: Understanding of the effects of medication on diet and food interactions will improve Outcome: Progressing Problem: Health Behavior: Goal: Ability to identify and utilize available resources and services will improve Outcome: Progressing Problem: Nutritional: Goal: Consumption of the prescribed amount of daily calories will improve Outcome: Progressing Goal: Demonstration of interest in eating will improve Outcome: Progressing Problem: Physical Regulation: Goal: Achievement of adequate weight for body size and type will improve Outcome: Progressing Goal: Diagnostic test results will improve Outcome: Progressing Goals: Clinical Goals for the Shift: Pain management Summary: GRINDER TENDER * Plan of [place] - Yasir Hernandez Jr., RN - 10/03/2023 1:05 AM MEAL GRINDER TENDER Goals: Problem: Lack of Knowledge: Goal: Ability to develop a pain control plan will improve Outcome: Progressing Goal: Ability to identify pain intensity on a pain scale and rate it consistently will improve Outcome: Progressing Goal: Ability to notify healthcare provider of pain before it becomes unmanageable or unbearable will improve Outcome: Progressing Problem: Medication: Goal: Satisfaction with pain management regimen will improve Outcome: Progressing Problem: Sensory: Goal: Ability to identify factors that increase the pain will improve Outcome: Progressing Goal: Pain level will decrease Outcome: Progressing Problem: Activity: Goal: Ability to return to normal activity level will improve Outcome: Progressing Problem: Lack of Knowledge: Goal: Knowledge of the prescribed therapeutic regimen will improve Outcome: Progressing Problem: Coping: Goal: Ability to cope will improve Outcome: Progressing Problem: Health Behavior: Goal: Identification of resources available to assist in meeting health care needs will improve Outcome: Progressing Problem: Sensory: Goal: Pain level will decrease Outcome: Progressing Problem: Health Behavior: Goal: Understanding of discharge needs will improve Outcome: Progressing Problem: Lack of Knowledge: Goal: Ability to state ways to decrease the risk of falls will improve Outcome: Progressing Problem: Safety: Goal: Will remain free from falls Outcome: Progressing Goal: Will remain free from injury from falls Outcome: Progressing Goal: Will remain free from falls and injury in home environment Outcome: Progressing Problem: Lack of Knowledge: Goal: Knowledge on safety and abstaining from self-injurious behavior will increase Outcome: Progressing Goal: Knowledge of therapies/resources will increase Outcome: Progressing Problem: Health Behavior: Goal: Ability to manage health-related needs will improve Outcome: Progressing Problem: Low Risk for Self-Injurious Behavior: Goal: Ability to remain free from injury will improve Description: (Low Risk) Outcome: Progressing Problem: Lack of Knowledge: Goal: Knowledge of disease or condition will improve Outcome: Progressing Goal: Understanding of discharge needs will improve Outcome: Progressing Problem: Health Behavior: Goal: Ability to identify changes in lifestyle to reduce recurrence of condition will improve Outcome: Progressing Goal: Identification of resources available to assist in meeting health care needs will improve Outcome: Progressing Problem: Physical Regulation: Goal: Ability to maintain clinical measurements within normal limits will improve Outcome: Progressing Goal: Complications related to the disease process, condition or treatment will be avoided or minimized Outcome: Progressing Problem: Respiratory: Goal: Ability to maintain adequate ventilation will improve Outcome: Progressing Problem: Safety: Goal: Ability to remain free from injury will improve Outcome: Progressing Problem: Activity: Goal: Risk for activity intolerance will decrease Outcome: Progressing Problem: Lack of Knowledge: Goal: Knowledge of disease or condition will improve Outcome: Progressing Goal: Ability to state and carry out methods to decrease the pain will improve Outcome: Progressing Problem: Nutritional: Goal: Nutritional status will be supported Outcome: Progressing Problem: Fluid Volume: Goal: Maintenance of adequate hydration will improve Outcome: Progressing Problem: Health Behavior: Goal: Ability to state signs and symptoms to report to health care provider will improve Outcome: Progressing Problem: Physical Regulation: Goal: Complications related to the disease process, condition or treatment will be avoided or minimized Outcome: Progressing Goal: Ability to maintain clinical measurements within normal limits will improve Outcome: Progressing Problem: Sensory: Goal: Ability to identify factors that increase the pain will improve Outcome: Progressing Goal: Ability to notify healthcare provider of pain before it becomes unmanageable or unbearable will improve Outcome: Progressing Goal: Pain level will decrease Outcome: Progressing Problem: Lack of Knowledge: Goal: Understanding of the prescribed diet will improve Outcome: Progressing Goal: Understanding of the effects of medication on diet and food interactions will improve Outcome: Progressing Problem: Health Behavior: Goal: Ability to identify and utilize available resources and services will improve Outcome: Progressing Problem: Nutritional: Goal: Consumption of the prescribed amount of daily calories will improve Outcome: Progressing Goal: Demonstration of interest in eating will improve Outcome: Progressing Problem: Physical Regulation: Goal: Achievement of adequate weight for body size and type will improve Outcome: Progressing Goal: Diagnostic test results will improve Outcome: Progressing Summary: Patient round every 30 to 45 minutes. Placed patient belongings at bedside and bedside table within reach. Call light at bedside. Instructed and encouraged patient to call the nurse or pct whenever assistance is needed. Encouraged patient to do deep breathing exercise. Provided well ventilated room and adequate rest. Encouraged deep breathing to improve lung expansion and oxygenation. GRINDER TENDER * Plan of [place] - Sharla Castellon RN - 10/02/2023 6:33 PM CST Problem: Lack of Knowledge: Goal: Ability to develop a pain control plan will improve Outcome: Progressing Goal: Ability to identify pain intensity on a pain scale and rate it consistently will improve Outcome: Progressing Goal: Ability to notify healthcare provider of pain before it becomes unmanageable or unbearable will improve Outcome: Progressing Problem: Medication: Goal: Satisfaction with pain management regimen will improve Outcome: Progressing Problem: Sensory: Goal: Ability to identify factors that increase the pain will improve Outcome: Progressing Goal: Pain level will decrease Outcome: Progressing Problem: Activity: Goal: Ability to return to normal activity level will improve Outcome: Progressing Problem: Lack of Knowledge: Goal: Knowledge of the prescribed therapeutic regimen will improve Outcome: Progressing Problem: Coping: Goal: Ability to cope will improve Outcome: Progressing Problem: Health Behavior: Goal: Identification of resources available to assist in meeting health care needs will improve Outcome: Progressing Problem: Sensory: Goal: Pain level will decrease Outcome: Progressing Problem: Health Behavior: Goal: Understanding of discharge needs will improve Outcome: Progressing Problem: Lack of Knowledge: Goal: Ability to state ways to decrease the risk of falls will improve Outcome: Progressing Problem: Safety: Goal: Will remain free from falls Outcome: Progressing Goal: Will remain free from injury from falls Outcome: Progressing Goal: Will remain free from falls and injury in home environment Outcome: Progressing Problem: Lack of Knowledge: Goal: Knowledge on safety and abstaining from self-injurious behavior will increase Outcome: Progressing Goal: Knowledge of therapies/resources will increase Outcome: Progressing Problem: Health Behavior: Goal: Ability to manage health-related needs will improve Outcome: Progressing Problem: Low Risk for Self-Injurious Behavior: Goal: Ability to remain free from injury will improve Description: (Low Risk) Outcome: Progressing Problem: Lack of Knowledge: Goal: Knowledge of disease or condition will improve Outcome: Progressing Goal: Understanding of discharge needs will improve Outcome: Progressing Problem: Health Behavior: Goal: Ability to identify changes in lifestyle to reduce recurrence of condition will improve Outcome: Progressing Goal: Identification of resources available to assist in meeting health care needs will improve Outcome: Progressing Problem: Physical Regulation: Goal: Ability to maintain clinical measurements within normal limits will improve Outcome: Progressing Goal: Complications related to the disease process, condition or treatment will be avoided or minimized Outcome: Progressing Problem: Respiratory: Goal: Ability to maintain adequate ventilation will improve Outcome: Progressing Problem: Safety: Goal: Ability to remain free from injury will improve Outcome: Progressing Problem: Activity: Goal: Risk for activity intolerance will decrease Outcome: Progressing Problem: Lack of Knowledge: Goal: Knowledge of disease or condition will improve Outcome: Progressing Goal: Ability to state and carry out methods to decrease the pain will improve Outcome: Progressing Problem: Nutritional: Goal: Nutritional status will be supported Outcome: Progressing Problem: Fluid Volume: Goal: Maintenance of adequate hydration will improve Outcome: Progressing Problem: Health Behavior: Goal: Ability to state signs and symptoms to report to health care provider will improve Outcome: Progressing Problem: Physical Regulation: Goal: Complications related to the disease process, condition or treatment will be avoided or minimized Outcome: Progressing Goal: Ability to maintain clinical measurements within normal limits will improve Outcome: Progressing Problem: Sensory: Goal: Ability to identify factors that increase the pain will improve Outcome: Progressing Goal: Ability to notify healthcare provider of pain before it becomes unmanageable or unbearable will improve Outcome: Progressing Goal: Pain level will decrease Outcome: Progressing Problem: Lack of Knowledge: Goal: Understanding of the prescribed diet will improve Outcome: Progressing Goal: Understanding of the effects of medication on diet and food interactions will improve Outcome: Progressing Problem: Health Behavior: Goal: Ability to identify and utilize available resources and services will improve Outcome: Progressing Problem: Nutritional: Goal: Consumption of the prescribed amount of daily calories will improve Outcome: Progressing Goal: Demonstration of interest in eating will improve Outcome: Progressing Problem: Physical Regulation: Goal: Achievement of adequate weight for body size and type will improve Outcome: Progressing Goal: Diagnostic test results will improve Outcome: Progressing Goals: Clinical Goals for the Shift: Pain management Summary: VSS, free from falls, ambulated to chair with walker and tolerated well, CIWA and ativan given accordingly, pain meds given for abdominal pain with relief, GRINDER TENDER GRINDER TENDER * Plan of Care - Angel Watson LPN - 10/02/2023 6:19 AM CST Goals: Problem: Lack of Knowledge: Goal: Ability to identify pain intensity on a pain scale and rate it consistently will improve Outcome: Progressing Goal: Ability to notify healthcare provider of pain before it becomes unmanageable or unbearable will improve Outcome: Progressing Problem: Sensory: Goal: Ability to identify factors that increase the pain will improve Outcome: Progressing Problem: Lack of Knowledge: Goal: Ability to state ways to decrease the risk of falls will improve Outcome: Progressing Problem: Safety: Goal: Will remain free from falls Outcome: Progressing Goal: Will remain free from injury from falls Outcome: Progressing Problem: Low Risk for Self-Injurious Behavior: Goal: Ability to remain free from injury will improve Description: (Low Risk) Outcome: Progressing Problem: Physical Regulation: Goal: Ability to maintain clinical measurements within normal limits will improve Outcome: Progressing Problem: Respiratory: Goal: Ability to maintain adequate ventilation will improve Outcome: Progressing Problem: Safety: Goal: Ability to remain free from injury will improve Outcome: Progressing Problem: Fluid Volume: Goal: Maintenance of adequate hydration will improve Outcome: Progressing Problem: Health Behavior: Goal: Ability to state signs and symptoms to report to health care provider will improve Outcome: Progressing Problem: Sensory: Goal: Ability to identify factors that increase the pain will improve Outcome: Progressing Goal: Ability to notify healthcare provider of pain before it becomes unmanageable or unbearable will improve Outcome: Progressing Problem: Activity: Goal: Mobility will improve Outcome: Progressing Problem: Lack of Knowledge: Goal: Understanding of ways to prevent future skin breakdown will improve Outcome: Progressing Clinical Goals for the Shift: Pain management Summary: Patients pain tolerable during shift, only requested medication once. Patient sleeping hasincreased during the night. Patient has improved his mobility. Will continue to monitor. GRINDER TENDER * Plan of Care - Aicha Sarah RN - 10/01/2023 6:03 PM CST Goals: Clinical Goals for the Shift: Pain management Summary: Patients pain has been well controlled with pain medication today. Still feels distended and bloated. GRINDER TENDER * [facility]IN Note - Javy Chung, [facility] - 10/01/2023 10:47 AM CST Patient Information: OT Eval and Treat Last 72 Hours OT Evaluation No documentation. OT Treatment No documentation. OT Notes Notes from 09/29/23 through 10/01/23 No notes of this type exist for this encounter. , PT Eval and Treat Last 72 Hours PT Evaluation No documentation. PT TREATMENT (last 168 hours) PT Treatment No documentation. PT Notes Notes from 09/29/23 through 10/01/23 No notes of this type exist for this encounter. GRINDER TENDER * Plan of Care - Angel Watson LPN - 10/01/2023 3:44 AM CST Goals: Problem: Lack of Knowledge: Goal: Ability to identify pain intensity on a pain scale and rate it consistently will improve Outcome: Progressing Problem: Medication: Goal: Satisfaction with pain management regimen will improve Outcome: Progressing Problem: Sensory: Goal: Pain level will decrease Outcome: Progressing Problem: Coping: Goal: Ability to cope will improve Outcome: Progressing Problem: Sensory: Goal: Pain level will decrease Outcome: Progressing Problem: Lack of Knowledge: Goal: Ability to state ways to decrease the risk of falls will improve Outcome: Progressing Problem: Safety: Goal: Will remain free from falls Outcome: Progressing Goal: Will remain free from injury from falls Outcome: Progressing Problem: Respiratory: Goal: Ability to maintain adequate ventilation will improve Outcome: Progressing Problem: Safety: Goal: Ability to remain free from injury will improve Outcome: Progressing Problem: Sensory: Goal: Ability to notify healthcare provider of pain before it becomes unmanageable or unbearable will improve Outcome: Progressing Goal: Pain level will decrease Outcome: Progressing Problem: Activity: Goal: Mobility will improve Outcome: Progressing Problem: Skin Integrity: Goal: Risk for impaired skin integrity will decrease Outcome: Progressing Goal: Ability to demonstrate warm and dry skin will improve Outcome: Progressing Goal: Circulation will improve to fullest extent possible Outcome: Progressing Clinical Goals for the Shift: Pain management Summary: Patient has had improvement in pain reduction with medication. Patient has slept will withdecrease in pain. Patient shows education still needed on disease process. Will continue to monitor. GRINDER TENDER * Plan of Care - Ericka Najera, RN - 09/30/2023 6:00 PM CST Problem: Lack of Knowledge Goal: Knowledge of risk factors and measures for prevention of condition will improve Outcome: Completed Problem: Physical Regulation Goal: Spread of further infection will be prevented Outcome: Completed Goal: Complications related to the disease process, condition, or treatment will be avoided or minimized Outcome: Completed Problem: Lack of Knowledge: Goal: Ability to develop a pain control plan will improve Outcome: Progressing Goal: Ability to identify pain intensity on a pain scale and rate it consistently will improve Outcome: Progressing Goal: Ability to notify healthcare provider of pain before it becomes unmanageable or unbearable will improve Outcome: Progressing Problem: Medication: Goal: Satisfaction with pain management regimen will improve Outcome: Progressing Problem: Sensory: Goal: Ability to identify factors that increase the pain will improve Outcome: Progressing Goal: Pain level will decrease Outcome: Progressing Problem: Activity: Goal: Ability to return to normal activity level will improve Outcome: Progressing Problem: Lack of Knowledge: Goal: Knowledge of the prescribed therapeutic regimen will improve Outcome: Progressing Problem: Coping: Goal: Ability to cope will improve Outcome: Progressing Problem: Health Behavior: Goal: Identification of resources available to assist in meeting health care needs will improve Outcome: Progressing Problem: Sensory: Goal: Pain level will decrease Outcome: Progressing Problem: Health Behavior: Goal: Understanding of discharge needs will improve Outcome: Progressing Problem: Lack of Knowledge: Goal: Ability to state ways to decrease the risk of falls will improve Outcome: Progressing Problem: Safety: Goal: Will remain free from falls Outcome: Progressing Goal: Will remain free from injury from falls Outcome: Progressing Goal: Will remain free from falls and injury in home environment Outcome: Progressing Problem: Lack of Knowledge: Goal: Knowledge on safety and abstaining from self-injurious behavior will increase Outcome: Progressing Goal: Knowledge of therapies/resources will increase Outcome: Progressing Problem: Health Behavior: Goal: Ability to manage health-related needs will improve Outcome: Progressing Problem: Low Risk for Self-Injurious Behavior: Goal: Ability to remain free from injury will improve Description: (Low Risk) Outcome: Progressing Problem: Lack of Knowledge: Goal: Knowledge of disease or condition will improve Outcome: Progressing Goal: Understanding of discharge needs will improve Outcome: Progressing Problem: Health Behavior: Goal: Ability to identify changes in lifestyle to reduce recurrence of condition will improve Outcome: Progressing Goal: Identification of resources available to assist in meeting health care needs will improve Outcome: Progressing Problem: Physical Regulation: Goal: Ability to maintain clinical measurements within normal limits will improve Outcome: Progressing Goal: Complications related to the disease process, condition or treatment will be avoided or minimized Outcome: Progressing Problem: Respiratory: Goal: Ability to maintain adequate ventilation will improve Outcome: Progressing Problem: Safety: Goal: Ability to remain free from injury will improve Outcome: Progressing Problem: Activity: Goal: Risk for activity intolerance will decrease Outcome: Progressing Problem: Lack of Knowledge: Goal: Knowledge of disease or condition will improve Outcome: Progressing Goal: Ability to state and carry out methods to decrease the pain will improve Outcome: Progressing Problem: Nutritional: Goal: Nutritional status will be supported Outcome: Progressing Problem: Fluid Volume: Goal: Maintenance of adequate hydration will improve Outcome: Progressing Problem: Health Behavior: Goal: Ability to state signs and symptoms to report to health care provider will improve Outcome: Progressing Problem: Physical Regulation: Goal: Complications related to the disease process, condition or treatment will be avoided or minimized Outcome: Progressing Goal: Ability to maintain clinical measurements within normal limits will improve Outcome: Progressing Problem: Sensory: Goal: Ability to identify factors that increase the pain will improve Outcome: Progressing Goal: Ability to notify healthcare provider of pain before it becomes unmanageable or unbearable will improve Outcome: Progressing Goal: Pain level will decrease Outcome: Progressing Problem: Lack of Knowledge: Goal: Understanding of the prescribed diet will improve Outcome: Progressing Goal: Understanding of the effects of medication on diet and food interactions will improve Outcome: Progressing Problem: Health Behavior: Goal: Ability to identify and utilize available resources and services will improve Outcome: Progressing Goals: Clinical Goals for the Shift: monitor/manage CIWA, control pain Summary: Pt has been doing okay today. CIWA scores have been low--he did get Ativan this AM, but nofurther doses. He claims he has tremors(seem intentional when I have observed them) and auditory hallucinations, but no seizure activity noted. Pt remains on fall precautions due to weakness and unsteady gait. He has c/o RUQ abd pain--PO pain med given as needed. Nausea off and on--Zofran given as ordered. IVF infusing as ordered. Voiding yellow to slightly kailyn urine w/o difficulty. BM today. Afeb. No visitors at bedside. GRINDER TENDER * Plan of Care - Ana M Briceno RN - 09/30/2023 5:12 AM CST Goals: Clinical Goals for the Shift: monitor/manage CIWA, control pain Summary: Patient was alert/oriented X4. He complained of abdominal pain that was relieved by the pain regiment in the DEC. CIWA and Ativan was given accordingly, but was not given when he was sleepy.No acute changes occurred as he slept throughout the night. Problem: Lack of Knowledge Goal: Knowledge of risk factors and measures for prevention of condition will improve Outcome: Progressing Problem: Physical Regulation Goal: Spread of further infection will be prevented Outcome: Progressing Goal: Complications related to the disease process, condition, or treatment will be avoided or minimized Outcome: Progressing Problem: Lack of Knowledge: Goal: Ability to develop a pain control plan will improve Outcome: Progressing Problem: Sensory: Goal: Ability to identify factors that increase the pain will improve Outcome: Progressing Problem: Coping: Goal: Ability to cope will improve Outcome: Progressing Problem: Health Behavior: Goal: Identification of resources available to assist in meeting health care needs will improve Outcome: Progressing Problem: Sensory: Goal: Pain level will decrease Outcome: Progressing Problem: Health Behavior: Goal: Understanding of discharge needs will improve Outcome: Progressing Problem: Lack of Knowledge: Goal: Knowledge on safety and abstaining from self-injurious behavior will increase Outcome: Progressing Problem: Nutritional: Goal: Nutritional status will be supported Outcome: Progressing GRINDER TENDER GRINDER TENDER * Plan of Jovita - Emerald Clayton RN - 09/29/2023 5:12 PM CST Problem: Lack of Knowledge Goal: Knowledge of risk factors and measures for prevention of condition will improve Outcome: Ongoing Problem: Physical Regulation Goal: Spread of further infection will be prevented Outcome: Ongoing Goal: Complications related to the disease process, condition, or treatment will be avoided or minimized Outcome: Ongoing Problem: Lack of Knowledge: Goal: Ability to develop a pain control plan will improve Outcome: Ongoing Goal: Ability to identify pain intensity on a pain scale and rate it consistently will improve Outcome: Ongoing Goal: Ability to notify healthcare provider of pain before it becomes unmanageable or unbearable will improve Outcome: Ongoing Problem: Medication: Goal: Satisfaction with pain management regimen will improve Outcome: Ongoing Problem: Sensory: Goal: Ability to identify factors that increase the pain will improve Outcome: Ongoing Goal: Pain level will decrease Outcome: Ongoing Problem: Activity: Goal: Ability to return to normal activity level will improve Outcome: Ongoing Problem: Lack of Knowledge: Goal: Knowledge of the prescribed therapeutic regimen will improve Outcome: Ongoing Problem: Coping: Goal: Ability to cope will improve Outcome: Ongoing Problem: Health Behavior: Goal: Identification of resources available to assist in meeting health care needs will improve Outcome: Ongoing Problem: Sensory: Goal: Pain level will decrease Outcome: Ongoing Problem: Health Behavior: Goal: Understanding of discharge needs will improve Outcome: Ongoing Problem: Lack of Knowledge: Goal: Ability to state ways to decrease the risk of falls will improve Outcome: Ongoing Problem: Safety: Goal: Will remain free from falls Outcome: Ongoing Goal: Will remain free from injury from falls Outcome: Ongoing Goal: Will remain free from falls and injury in home environment Outcome: Ongoing Problem: Lack of Knowledge: Goal: Knowledge on safety and abstaining from self-injurious behavior will increase Outcome: Ongoing Goal: Knowledge of therapies/resources will increase Outcome: Ongoing Problem: Health Behavior: Goal: Ability to manage health-related needs will improve Outcome: Ongoing Problem: Low Risk for Self-Injurious Behavior: Goal: Ability to remain free from injury will improve Description: (Low Risk) Outcome: Ongoing Problem: Lack of Knowledge: Goal: Knowledge of disease or condition will improve Outcome: Ongoing Goal: Understanding of discharge needs will improve Outcome: Ongoing Problem: Health Behavior: Goal: Ability to identify changes in lifestyle to reduce recurrence of condition will improve Outcome: Ongoing Goal: Identification of resources available to assist in meeting health care needs will improve Outcome: Ongoing Problem: Physical Regulation: Goal: Ability to maintain clinical measurements within normal limits will improve Outcome: Ongoing Goal: Complications related to the disease process, condition or treatment will be avoided or minimized Outcome: Ongoing Problem: Respiratory: Goal: Ability to maintain adequate ventilation will improve Outcome: Ongoing Problem: Safety: Goal: Ability to remain free from injury will improve Outcome: Ongoing Problem: Activity: Goal: Risk for activity intolerance will decrease Outcome: Ongoing Problem: Lack of Knowledge: Goal: Knowledge of disease or condition will improve Outcome: Ongoing Goal: Ability to state and carry out methods to decrease the pain will improve Outcome: Ongoing Problem: Nutritional: Goal: Nutritional status will be supported Outcome: Ongoing Problem: Fluid Volume: Goal: Maintenance of adequate hydration will improve Outcome: Ongoing Problem: Health Behavior: Goal: Ability to state signs and symptoms to report to health care provider will improve Outcome: Ongoing Problem: Physical Regulation: Goal: Complications related to the disease process, condition or treatment will be avoided or minimized Outcome: Ongoing Goal: Ability to maintain clinical measurements within normal limits will improve Outcome: Ongoing Problem: Sensory: Goal: Ability to identify factors that increase the pain will improve Outcome: Ongoing Goal: Ability to notify healthcare provider of pain before it becomes unmanageable or unbearable will improve Outcome: Ongoing Goal: Pain level will decrease Outcome: Ongoing Problem: Lack of Knowledge: Goal: Understanding of the prescribed diet will improve Outcome: Ongoing Goal: Understanding of the effects of medication on diet and food interactions will improve Outcome: Ongoing Problem: Health Behavior: Goal: Ability to identify and utilize available resources and services will improve Outcome: Ongoing Goals: Clinical Goals for the Shift: VSS, safety Summary: Plan of care discussed with patient. GRINDER TENDER * Initial Assessments - Sheridan Zheng RN - 09/29/2023 9:32 AM CST CM Initial Assessment Interview Note Information Obtained From: Patient (09/29/23927) Admission Source: ED Impression: alcohol withdrawal, CP Plan Includes: FCO, speak to peer recovery team, damir. He had been at [facility] for hip fx butwent out on leave for his birthday. He plans to return on DC, if they can accept. Referral pending.If they accept, they should be able to pick him up in their van. Primary Source of Transportation: Does the patient need discharge transport arranged?: Yes Has discharge transport been arranged?: No (09/29/23300) Health Insurance Coverage: [facility] Prescription Coverage: yes Pharmacy: No Pharmacies Listed Primary Care Provider: Major Dotson MD Prior to Admission: Functional Status: Minimal assist with ADLs Primary Caregiver: Facility staff Support System: Parent Home Care Services: No Durable Medical Equipment: Walker (wheeled) Living Arrangements: custodial Type of Residence: custodial Does patient wish to return to care facility?: Yes, wishes to return (09/29/23927) SDOH: Transportation: In the past 12 months, has lack of transportation kept you from medical appointments or from getting medications?: No In the past 12 months, has lack of transportation kept you from meetings, work, or from getting things needed for daily living?: No (09/29/23930) Financial Resource: How hard is it for you to pay for the very basics like food, housing, medical care, and heating?: Not very hard (09/29/23930) Housing: In the last 12 months, was there a time when you were not able to pay the mortgage or rent on time?: No In the last 12 months, how many places have you lived?: 1 In the last 12 months, was there a time when you did not have a steady place to sleep or slept in ashelter (including now)?: No (09/29/23930) Social Connections: In a typical week, how many times do you talk on the phone with family, friends, or neighbors?: Three times a week How often do you get together with friends or relatives?: Three times a week How often do you attend anglican or sabianism services?: Never Do you belong to any clubs or organizations such as anglican groups, unions, fraternal or athletic groups, or school groups?: No How often do you attend meetings of the clubs or organizations you belong to?: Never Are you , , , , never , or living with a partner?: Never (09/29/23930) Food Insecurity: Within the past 12 months, you worried that your food would run out before you got the money to buymore.: Never true Within the past 12 months, the food you bought just didn't last and you didn't have money to get more.: Never true (09/29/23930) Potential discharge needs include: Home Health: None (09/29/23927) Patient expects to be Discharged to: [facility], (09/29/23927) Sheridan Zheng RN Case Manager 09/29/2023 9:37 AM GRINDER TENDER * Plan of Care - Desiree Walker RN - 09/29/2023 5:34 AM CST Goals: Clinical Goals for the Shift: VSS, safety Summary: GRINDER TENDER * ED Re-evaluation Note - Miguelito James Jr., MD - 09/28/2023 11:15 PM MEAL GRINDER TENDER ED Re-evaluation 11:15 p.m. patient report received from Dr. Valdes on this 38-year-old male who has a long history of alcohol dependence, alcoholic cirrhosis, GERD, history of peptic ulcer, reports that over the past few weeks he is progressively drinking more and more in his now up to somewhere between 24 and 30 beers per day. Last alcohol was this morning, and he presented with complaint that he was in withdrawal. He has received thiamine, folic acid, MultiVites, fluids, Ativan, Librium, clonidine, Zofran, and is slowly but steadily improving. His CIWA score had been 21. Will review for final lab results, then contact hospitalist for potential admission 11:30 p.m. patient has a improved compared to arrival, but still uncomfortable, I have added clonidine TTS patch to his regimen, 1:00 a.m. call placed to hospitalist. Drug screen is negative, UA is negative, patient continues inwithdrawal, will discuss admission for withdrawal pathway Have given additional 2 mg of Ativan. Patient had 1 mg earlier, is not having hallucinations, latest CIWA score is 16 prior to this dose of Ativan 1:[address] Hannah who accepts the patient to telemetry. Differential diagnosis, workup, interpretation of labs, images, radiology reports, EKG, initial treatment, Diagnosis, development of treatment plan and disposition complexity and risk is high. Have discussed the above with the patient and/or family and they agree with the plan. Miguelito James Jr., MD 10/10/23 1206 GRINDER TENDER documented in this encounter Plan of Treatment Not on file documented as of this encounter Procedures Procedure Name Priority Date/Time Associated Diagnosis Comments US RUQ IP Routine 10/04/2023 11:16 AM MEAL GRINDER TENDER EGFR Routine 10/04/2023 4:43 AM MEAL GRINDER TENDER DIFFERENTIAL AUTO Routine 10/04/2023 4:4 3 AM MEAL GRINDER TENDER CBC WITH AUTO DIFFERENTIAL Routine 10/04/2023 4:43 AM MEAL GRINDER TENDER HEPATIC FUNCTION PANEL Routine 10/04/2023 4:43 AM MEAL GRINDER TENDER BASIC METABOLIC PANEL Routine 10/04/2023 4:43 AM MEAL GRINDER TENDER XR ANKLE LEFT 3 OR MORE VIEWS IP Routine 10/03/2023 8:14 PM MEAL GRINDER TENDER EGFR Routine 10/03/2023 2:29 AM MEAL GRINDER TENDER DIFFERENTIAL AUTO Routine 10/03/2023 2:2 9 AM MEAL GRINDER TENDER CBC WITH AUTO DIFFERENTIAL Routine 10/03/2023 2:29 AM MEAL GRINDER TENDER HEPATIC FUNCTION PANEL Routine 10/03/2023 2:29 AM MEAL GRINDER TENDER BASIC METABOLIC PANEL Routine 10/03/2023 2:29 AM MEAL GRINDER TENDER EGFR Routine 10/02/2023 5:14 AM MEAL GRINDER TENDER DIFFERENTIAL AUTO Routine 10/02/2023 5:1 4 AM MEAL GRINDER TENDER CBC WITH AUTO DIFFERENTIAL Routine 10/02/2023 5:14 AM MEAL GRINDER TENDER HEPATIC FUNCTION PANEL Routine 10/02/2023 5:14 AM MEAL GRINDER TENDER BASIC METABOLIC PANEL Routine 10/02/2023 5:14 [address] ABDOMEN PELVIS WO CONTRAST IP Routine 10/01/2023 4:23 PM MEAL GRINDER TENDER EGFR Routine 10/01/2023 5:20 AM MEAL GRINDER TENDER DIFFERENTIAL AUTO Routine 10/01/2023 5: 20 AM MEAL GRINDER TENDER CBC WITH AUTO DIFFERENTIAL Routine 10/01/2023 5:20 AM MEAL GRINDER TENDER HEPATIC FUNCTION PANEL Routine 10/01/2023 5:20 AM MEAL GRINDER TENDER BASIC METABOLIC PANEL Routine 10/01/2023 5:20 AM MEAL GRINDER TENDER POCT GLUCOSE DEVICE Routine 09/30/2023 9 :05 PM MEAL GRINDER TENDER XR KUB IP Routine 09/30/2023 12:26 PM MEAL GRINDER TENDER EGFR Routine 09/30/2023 6:13 AM MEAL GRINDER TENDER DIFFERENTIAL AUTO Routine 09/30/2023 6:1 3 AM MEAL GRINDER TENDER CBC WITH AUTO DIFFERENTIAL Routine 09/30/2023 6:13 AM MEAL GRINDER TENDER PROTIME-INR Routine 09/30/2023 6:13 AM MEAL GRINDER TENDER HEPATIC FUNCTION PANEL Routine 09/30/2023 6:13 AM MEAL GRINDER TENDER BASIC METABOLIC PANEL Routine 09/30/2023 6:13 AM MEAL GRINDER TENDER TRANSTHORACIC ECHO (TTE) COMPLETE W DOPPLER/CF WO CONTRAST Routine 09/29/2023 9:41 AM MEAL GRINDER TENDER ECG 12-LEAD Routine 09/29/2023 7:20 AM MEAL GRINDER TENDER INFLUENZA A/B, RSV, AND COVID-19 PCR Routine 09/29/2023 6:00 AM MEAL GRINDER TENDER EGFR Routine 09/29/2023 5:37 AM MEAL GRINDER TENDER CBC WITHOUT DIFFERENTIAL Routine 09/29/2023 5:37 AM MEAL GRINDER TENDER PHOSPHORUS Routine 09/29/2023 5:37 AM MEAL GRINDER TENDER MAGNESIUM Routine 09/29/2023 5:37 AM MEAL GRINDER TENDER LIPASE Routine 09/29/2023 5:37 AM MEAL GRINDER TENDER SALICYLATE LEVEL Routine 09/29/2023 5:37 AM MEAL GRINDER TENDER COMPREHENSIVE METABOLIC PANEL Routine 09/29/2023 5:37 AM MEAL GRINDER TENDER TROPONIN T HIGH-SENSITIVITY 6-HOUR Timed 09/29/2023 12:51 AM MEAL GRINDER TENDER XR CHEST 1 VIEW ED 09/28/2023 11:32 PM MEAL GRINDER TENDER TROPONIN T HIGH-SENSITIVITY 4-HR Timed 09/28/2023 10:30 PM MEAL GRINDER TENDER TROPONIN T HIGH-SENSITIVITY 2-HOUR Timed 09/28/2023 9:02 PM MEAL GRINDER TENDER ETHANOL STAT 09/28/2023 9:02 PM MEAL GRINDER TENDER ACETAMINOPHEN LEVEL STAT 09/28/2023 9 :02 PM MEAL GRINDER TENDER SALICYLATE LEVEL STAT 09/28/2023 9:02 PM MEAL GRINDER TENDER URINALYSIS AND REFLEX TO MICROSCOPIC Routine 09/28/2023 7:30 PM MEAL GRINDER TENDER DRUGS OF ABUSE SCREEN, URINE WITHOUT CONFIRMATION STAT 09/28/2023 7:29 PM MEAL GRINDER TENDER TROPONIN T HIGH-SENSITIVITY SERIES (BASELINE, 2HR, 4HR, 6HR) STAT 09/28/2023 6:43 PM MEAL GRINDER TENDER EGFR STAT 09/28/2023 6:43 PM MEAL GRINDER TENDER DIFFERENTIAL AUTO STAT 09/28/2023 6:4 3 PM MEAL GRINDER TENDER CBC WITH AUTO DIFFERENTIAL STAT 09/28/2023 6:43 PM MEAL GRINDER TENDER ETHANOL STAT 09/28/2023 6:43 PM MEAL GRINDER TENDER COMPREHENSIVE METABOLIC PANEL STAT 09/28/2023 6:43 PM MEAL GRINDER TENDER ECG 12-LEAD STAT 09/28/2023 6:34 PM MEAL GRINDER TENDER documented in this encounter Results * US RUQ (10/04/2023 11:16 AM MEAL GRINDER TENDER) Anatomical Region Laterality Modality Abdomen N/A Ultrasound 10/04/2023 11:4 7 AM MEAL GRINDER TENDER Narrative 10/04/2023 11:51 AM MEAL GRINDER TENDER EXAM DESCRIPTION: ?? US RUQ REASON FOR STUDY: Right upper quadrant abdominal pain for 1 week. TECHNIQUE: Ultrasound of the right upper quadrant of the abdomen was performed with grayscale and color Doppler. COMPARISON: CT abdomen and pelvis 10/01/2023. FINDINGS: PANCREAS: ??Visualized portions of the pancreas are within normal limits. Portions of the pancreatic body and tail are obscured due to bowel gas. LIVER: The liver is increased ??in echogenicity. ??Liver measures 19.1 cm. ?? There appears to be nodular surface contour. ??No focal hepatic lesions are seen. Antegrade direction of flow shown in the main portal vein. GALLBLADDER: ??No echogenic gallstones, gallbladder wall thickening, or pericholecystic fluid. No positive sonographic Venegas's sign reported. BILIARY: There is no intrahepatic biliary ductal dilatation. The common bile duct measures ??0.4 ??cm in diameter. RIGHT KIDNEY: Right kidney is ??11.2 ??cm in length. There is no hydronephrosis. The echogenicity is ??normal. OTHER: ??No other significant finding. IMPRESSION: No evidence of cholelithiasis or acute cholecystitis. Hepatic steatosis and cirrhosis. THIS IS AN ELECTRONICALLY VERIFIED FINAL REPORT 10/04/2023 11:51 AM - Electronically signed by ??Naun Bonilla M.D. D: ??10/04/2023 11:51 AM T: Report ID: [id number] Reading Location: ??[id number] Procedure Note Naun Bonilla Jr., MD - 10/04/2023 EXAM DESCRIPTION: US RUQ REASON FOR STUDY: Right upper quadrant abdominal pain for 1 week. TECHNIQUE: Ultrasound of the right upper quadrant of the abdomen wasperformed with grayscale and color Doppler. COMPARISON: CT abdomen and pelvis 10/01/2023. FINDINGS: PANCREAS: Visualized portions of the pancreas are within normal limits. Portions of the pancreatic body and tail are obscured due to bowel gas. LIVER: The liver is increased in echogenicity. Liver measures 19.1 cm. There appears to be nodular surface contour. No focal hepatic lesions are seen. Antegrade direction of flow shown in the main portal vein. GALLBLADDER: No echogenic gallstones, gallbladder wall thickening, or pericholecystic fluid. No positive sonographic Venegas's sign reported. BILIARY: There is no intrahepatic biliary ductal dilatation. The commonbile duct measures 0.4 cm in diameter. RIGHT KIDNEY: Right kidney is 11.2 cm in length. There is nohydronephrosis. The echogenicity is normal. OTHER: No other significant finding. IMPRESSION: No evidence of cholelithiasis or acute cholecystitis. Hepatic steatosis and cirrhosis. THIS IS AN ELECTRONICALLY VERIFIED FINAL REPORT 10/04/2023 11:51 AM - Electronically signed by Naun Bonilla M.D. T: Report ID: [id number] Reading Location: [place] [id number] us Donal Cabrera MD [facility] US PROCEDURES Final Result * eGFR (10/04/2023 4:43 AM MEAL GRINDER TENDER) eGFR 126 mL/min/1. 73 m2 [facility] DUMONT Comment: Interpretive [...] of Race in Diagnosing Kidney Disease, JASN 202). The CKD-EPI equation should not be used for patients with unstable renal function and has not been validated in children and those over 70. Current interpretive data was last reviewed 2021. Blood 10/04/2023 4:43 AM MEAL GRINDER TENDER 10/04/2023 5:37 AM MEAL GRINDER TENDER us Donal Cabrera MD LAB BLOOD ORDERAB LES Final Result [facility] [id number] [facility] Department [place] [address] * (ABNORMAL) Differential, auto (10/04/2023 4:43 AM MEAL GRINDER TENDER) Neutrophil abs 3.8 1.5 - 6.5 K/cumm [facility] Imm gran abs 0.1 0.0 - 0.1 K/cumm [facility] Lymphocyte abs 1.7 0.8 - 3.3 K/cumm [facility] Monocyte abs 1.3(H) 0.2 - 0.8 K/cumm [facility] Eosinophil abs 0.2 0.0 - 0.5 K/cumm [facility] Basophil abs 0.1 0.0 - 0.1 K/cumm [facility] Neutrophil pct 53.7 % [facility] Comment: Interpretive Data Percent cell count reference ranges are not reported, since discordance with absolute values may lead to misinterpretation of CBC data. Current Interpretive Data was last revised on 2018. Imm gran pct 1.3 % [facility] Comment: Interpretive Data Percent cell count reference ranges are not reported, since discordance with absolute values may lead to misinterpretation of CBC data. Current Interpretive Data was last revised on 2018. Lymphocyte pct 23.5 % [facility] Comment: Interpretive Data Percent cell count reference ranges are not reported, since discordance with absolute values may lead to misinterpretation of CBC data. Current Interpretive Data was last revised on 2018. Monocyte pct 17.6 % [facility] Comment: Interpretive Data Percent cell count reference ranges are not reported, since discordance with absolute values may lead to misinterpretation of CBC data. Current Interpretive Data was last revised on 2018. Eosinophil pct 3.1 % [facility] Comment: Interpretive Data Percent cell count reference ranges are not reported, since discordance with absolute values may lead to misinterpretation of CBC data. Current Interpretive Data was last revised on 2018. Basophil pct 0.8 % [facility] Comment: Interpretive Data Percent cell count reference ranges are not reported, since discordance with absolute values may lead to misinterpretation of CBC data. Current Interpretive Data was last revised on 2018. Blood 10/04/2023 4:43 AM MEAL GRINDER TENDER 10/04/2023 5:37 AM MEAL GRINDER TENDER Donal Cabrera MD LAB BLOOD ORDERAB LES Final Result [facility] [address] [facility] Department [place] [address] * (ABNORMAL) CBC with auto differential (10/04/2023 4:43 AM MEAL GRINDER TENDER) [facility] WBC 7.1 3.8 - 9.9 K/cumm SAMAN Hgb 13.1 13.0 - 17.5 g/dL SAMAN Comment: Interpretive Data A reference range for this assay has not been established for patients with an unknown legal sex. Please refer to the laboratory test catalog for established sex-specific reference intervals. Current interpretive data was last revised on 2023. Hct 38.0(L) 38.9 - 50.3 % SAMAN Comment: Interpretive Data A reference range for this assay has not been established for patients with an unknown legal sex. Please refer to the laboratory test catalog for established sex-specific reference intervals. Current interpretive data was last revised on 2023. Plt 152 150 - 400 K/cumm SAMAN MPV 10.8 9.1 - 12.3 fL [facility] RBC 3.98(L) 4.30 - 5.80 M/cumm [facility] Comment: Interpretive Data A reference range for this assay has not been established for patients with an unknown legal sex. Please refer to the laboratory test catalog for established sex-specific reference intervals. Current interpretive data was last revised on 2023. MCV 95.5 81.3 - 96.4 fL [facility] MCH 32.9 27.1 - 33.3 pg [facility] MCHC 34.5 32.3 - 35.7 g/dL [facility] RDW CV 14.9 11.1 - 14.9 % [facility] RDW SD 48.6(H) 35.7 - 48.1 fL [facility] NRBC abs 0.00 0.00 - 0.01 K/cumm [facility] Blood 10/04/2023 4:43 AM MEAL GRINDER TENDER 10/04/2023 5:37 AM MEAL GRINDER TENDER Donal Cabrera MD LAB BLOOD ORDERAB LES Final Result Performing Organization Address City/[facility] Co de Phone Number [facility] [address] [facility] Department [place] [address] * (ABNORMAL) Hepatic function panel (10/04/2023 4:43 AM MEAL GRINDER TENDER) [facility] Bilirubin, total 0.3 0.1 - 1.2 mg/dL [facility] Bilirubin, direct <0.2 0.1 - 0.3 mg/dL [facility] Protein, pl 6.2(L) 6.5 - 8.5 g/dL [facility] Albumin 3.4(L) 3.5 - 5.0 g/dL [facility] Alk phos 83 40 - 130 Units/L [facility] ALT 37 7 - 55 Units/L [facility] AST 28 10 - 50 Units/L [facility] Blood 10/04/2023 4:43 AM MEAL GRINDER TENDER 10/04/2023 5:37 AM MEAL GRINDER TENDER Donal Cabrera MD LAB BLOOD ORDERAB LES Final Result Performing Organization Address City/[facility] Co de Phone Number SAMAN [address] [facility] [place] [address] * (ABNORMAL) Basic metabolic panel (10/04/2023 4:43 AM MEAL GRINDER TENDER) Sodium 138 135 - 145 mmol/L [facility] Potassium, pl 3.7 3.3 - 4.9 mmol/L [facility] Chloride 104 97 - 110 mmol/L [facility] CO2 24 22 - 32 mmol/L [facility] Anion gap 10 2 - 15 mmol/L [facility] BUN 10 6 - 25 mg/dL [facility] Creatinine 0.60(L) 0.80 - 1.30 mg/dL [facility] Glucose 92 70 - 199 mg/dL [facility] Comment: Interpretive Data Fasting glucose >/= 126 [...] classification and Diagnosis of Diabetes Diabetes Care 202; 46: S19-S40. Current interpretive data was last revised 2022. Calcium 8.9 8.5 - 10.3 mg/dL [facility] Blood 10/04/2023 4:43 AM MEAL GRINDER TENDER 10/04/2023 5:37 AM MEAL GRINDER TENDER us Donal Cabrera MD LAB BLOOD ORDERAB LES Final Result Performing Organization Address [facility] Co de Phone Number [facility] [address] [facility] [place] [address] * XR Ankle Left 3 or More Views (10/03/2023 8:14 PM MEAL GRINDER TENDER) Anatomical Region Laterality Modality Lower Extremities, Ankle Left Compute d Radiography 10/03/2023 9:15 PM MEAL GRINDER TENDER Narrative 10/03/2023 9:15 PM MEAL GRINDER TENDER EXAM DESCRIPTION: XR ANKLE LEFT 3 OR MORE VIEWS REASON FOR STUDY: acute pain ?? Pt states Left ankle pain after tripping in the shower ?? TECHNIQUE: 3 ??radiographic view(s) of the ??left ankle . COMPARISON: None. FINDINGS: BONES/JOINTS: There is no acute fracture, malalignment or osseous abnormality. The joint spaces are normal. SOFT TISSUES: Within normal limits. ?? IMPRESSION: No acute osseous abnormality. THIS IS AN ELECTRONICALLY VERIFIED FINAL REPORT 10/03/2023 9:15 PM - Electronically signed by ??Rolando Jade M.D., D.O. Kiran Stacy M.D. D: ??10/03/2023 9:15 PM T: Report ID: [id number] Reading Location: ??[id number] Procedure Note Rolando Jade MD - 10/03/2023 EXAM DESCRIPTION: XR ANKLE LEFT 3 OR MORE VIEWS REASON FOR STUDY: acute pain Pt states Left ankle pain after tripping in the shower TECHNIQUE: 3 radiographic view(s) of the left ankle . COMPARISON: None. FINDINGS: BONES/JOINTS: There is no acute fracture, malalignment orosseous abnormality. The joint spaces are normal. SOFT TISSUES: Within normal limits. IMPRESSION: No acute osseous abnormality. THIS IS AN ELECTRONICALLY VERIFIED FINAL REPORT 10/03/2023 9:15 PM - Electronically signed by Rolando Jade M.D., D.O. Kiran Stacy M.D. T: Report ID: [id number] Reading Location: [place] [id number] Donal Cabrera MD IMG XR PROCEDURES Final Result * eGFR (10/03/2023 2:29 AM MEAL GRINDER TENDER) Pathologist [facility] eGFR 126 mL/min/1. 73 m2 SAMAN DUMONT Comment: Interpretive [...] of Race in Diagnosing Kidney Disease, JASN 202). The CKD-EPI equation should not be used for patients with unstable renal function and has not been validated in children and those over 70. Current interpretive data was last reviewed 2021. Blood 10/03/2023 2:29 AM MEAL GRINDER TENDER 10/03/2023 2:53 AM MEAL GRINDER TENDER us Donal Cabrera MD LAB BLOOD ORDERAB LES Final Result [facility] [address] [facility] Department [place] [address] * (ABNORMAL) Differential, auto (10/03/2023 2:29 AM MEAL GRINDER TENDER) Pathologist [facility] Neutrophil abs 3.8 1.5 - 6.5 K/cumm [facility] Imm gran abs 0.1 0.0 - 0.1 K/cumm [facility] Lymphocyte abs 1.5 0.8 - 3.3 K/cumm [facility] Monocyte abs 0.9(H) 0.2 - 0.8 K/cumm [facility] Eosinophil abs 0.2 0.0 - 0.5 K/cumm [facility] Basophil abs 0.1 0.0 - 0.1 K/cumm [facility] Neutrophil pct 58.9 % [facility] Comment: Interpretive Data Percent cell count reference ranges are not reported, since discordance with absolute values may lead to misinterpretation of CBC data. Current Interpretive Data was last revised on 2018. Imm gran pct 0.8 % [facility] Comment: Interpretive Data Percent cell count reference ranges are not reported, since discordance with absolute values may lead to misinterpretation of CBC data. Current Interpretive Data was last revised on 2018. Lymphocyte pct 23.0 % SAMAN Comment: Interpretive Data Percent cell count reference ranges are not reported, since discordance with absolute values may lead to misinterpretation of CBC data. Current Interpretive Data was last revised on 2018. Monocyte pct 13.3 % SAMAN Comment: Interpretive Data Percent cell count reference ranges are not reported, since discordance with absolute values may lead to misinterpretation of CBC data. Current Interpretive Data was last revised on 2018. Eosinophil pct 3.2 % SAMAN Comment: Interpretive Data Percent cell count reference ranges are not reported, since discordance with absolute values may lead to misinterpretation of CBC data. Current Interpretive Data was last revised on 2018. Basophil pct 0.8 % [facility] Comment: Interpretive Data Percent cell count reference ranges are not reported, since discordance with absolute values may lead to misinterpretation of CBC data. Current Interpretive Data was last revised on 2018. Blood 10/03/2023 2:29 AM MEAL GRINDER TENDER 10/03/2023 2:53 AM MEAL GRINDER TENDER Donal Cabrera MD LAB BLOOD ORDERAB LES Final Result [facility] [address] [facility] Department [place] [address] * (ABNORMAL) CBC with auto differential (10/03/2023 2:29 AM MEAL GRINDER TENDER) WBC 6.5 3.8 - 9.9 K/cumm SAMAN Hgb 12.9(L) 13.0 - 17.5 g/dL SAMAN Comment: Interpretive Data A reference range for this assay has not been established for patients with an unknown legal sex. Please refer to the laboratory test catalog for established sex-specific reference intervals. Current interpretive data was last revised on 2023. Hct 38.3(L) 38.9 - 50.3 % [facility] Comment: Interpretive Data A reference range for this assay has not been established for patients with an unknown legal sex. Please refer to the laboratory test catalog for established sex-specific reference intervals. Current interpretive data was last revised on 2023. Plt 148(L) 150 - 400 K/cumm [facility] MPV 9.9 9.1 - 12.3 fL [facility] RBC 4.02(L) 4.30 - 5.80 M/cumm [facility] Comment: Interpretive Data A reference range for this assay has not been established for patients with an unknown legal sex. Please refer to the laboratory test catalog for established sex-specific reference intervals. Current interpretive data was last revised on 2023. MCV 95.3 81.3 - 96.4 fL [facility] MCH 32.1 27.1 - 33.3 pg [facility] MCHC 33.7 32.3 - 35.7 g/dL [facility] RDW CV 14.6 11.1 - 14.9 % [facility] RDW SD 46.9 35.7 - 48.1 fL [facility] NRBC abs 0.00 0.00 - 0.01 K/cumm [facility] Blood 10/03/2023 2:29 AM MEAL GRINDER TENDER 10/03/2023 2:53 AM MEAL GRINDER TENDER Donal Cabrera MD LAB BLOOD ORDERAB LES Final Result [place] [id number] [facility] Department [place] [address] * (ABNORMAL) Hepatic function panel (10/03/2023 2:29 AM MEAL GRINDER TENDER) Pathologist [facility] Bilirubin, total 0.4 0.1 - 1.2 mg/dL [facility] Bilirubin, direct <0.2 0.1 - 0.3 mg/dL [facility] Protein, pl 6.3(L) 6.5 - 8.5 g/dL [facility] Albumin 3.3(L) 3.5 - 5.0 g/dL [facility] Alk phos 79 40 - 130 Units/L [facility] ALT 39 7 - 55 Units/L [facility] AST 31 10 - 50 Units/L [facility] Blood 10/03/2023 2:29 AM MEAL GRINDER TENDER 10/03/2023 2:53 AM MEAL GRINDER TENDER Donal Cabrera MD LAB BLOOD ORDERAB LES Final Result Performing Organization Address City/[facility]/ZIP Co de Phone Number SAMAN [address] [facility] Department [place] [address] * (ABNORMAL) Basic metabolic panel (10/03/2023 2:29 AM MEAL GRINDER TENDER) Pathologist [facility] Sodium 138 135 - 145 mmol/L [facility] Potassium, pl 3.9 3.3 - 4.9 mmol/L [facility] Chloride 103 97 - 110 mmol/L [facility] CO2 26 22 - 32 mmol/L [facility] Anion gap 9 2 - 15 mmol/L [facility] BUN 8 6 - 25 mg/dL [facility] Creatinine 0.60(L) 0.80 - 1.30 mg/dL [facility] Glucose 105 70 - 199 mg/dL [facility] Comment: Interpretive Data Fasting glucose >/= 126 [...] classification and Diagnosis of Diabetes Diabetes Care 202; 46: S19-S40. Current interpretive data was last revised 2022. Calcium 9.1 8.5 - 10.3 mg/dL [facility] Blood 10/03/2023 2:29 AM MEAL GRINDER TENDER 10/03/2023 2:53 AM MEAL GRINDER TENDER Donal Cabrera MD LAB BLOOD ORDERAB LES Final Result Performing Organization Address City/[facility]/ZIP Co de Phone Number SAMAN [address] [facility] Department [place] [address] * eGFR (10/02/2023 5:14 AM MEAL GRINDER TENDER) eGFR 126 mL/min/1. 73 m2 SAMAN Comment: Interpretive Data Reference Interval Normal ?>/= [...] interpretive data was last reviewed 2021. Blood 10/02/2023 5:14 AM MEAL GRINDER TENDER 10/02/2023 5:28 AM MEAL GRINDER TENDER us Donal Cabrera MD LAB BLOOD ORDERAB LES Final Result SAMAN [address] [facility] Department [place] [address] * (ABNORMAL) Differential, auto (10/02/2023 5:14 AM MEAL GRINDER TENDER) Pathologist [facility] Neutrophil abs 3.9 1.5 - 6.5 K/cumm SAMAN Imm gran abs 0.1 0.0 - 0.1 K/cumm [facility] Lymphocyte abs 1.5 0.8 - 3.3 K/cumm [facility] Monocyte abs 0.9(H) 0.2 - 0.8 K/cumm [facility] Eosinophil abs 0.2 0.0 - 0.5 K/cumm [facility] Basophil abs 0.1 0.0 - 0.1 K/cumm [facility] Neutrophil pct 58.8 % [facility] Comment: Interpretive Data Percent cell count reference ranges are not reported, since discordance with absolute values may lead to misinterpretation of CBC data. Current Interpretive Data was last revised on 2018. Imm gran pct 0.9 % [facility] Comment: Interpretive Data Percent cell count reference ranges are not reported, since discordance with absolute values may lead to misinterpretation of CBC data. Current Interpretive Data was last revised on 2018. Lymphocyte pct 22.5 % [facility] Comment: Interpretive Data Percent cell count reference ranges are not reported, since discordance with absolute values may lead to misinterpretation of CBC data. Current Interpretive Data was last revised on 2018. Monocyte pct 14.0 % [facility] Comment: Interpretive Data Percent cell count reference ranges are not reported, since discordance with absolute values may lead to misinterpretation of CBC data. Current Interpretive Data was last revised on 2018. Eosinophil pct 3.0 % [facility] Comment: Interpretive Data Percent cell count reference ranges are not reported, since discordance with absolute values may lead to misinterpretation of CBC data. Current Interpretive Data was last revised on 2018. Basophil pct 0.8 % [facility] Comment: Interpretive Data Percent cell count reference ranges are not reported, since discordance with absolute values may lead to misinterpretation of CBC data. Current Interpretive Data was last revised on 2018. Blood 10/02/2023 5:14 AM MEAL GRINDER TENDER 10/02/2023 5:28 AM MEAL GRINDER TENDER us Donal Cabrera MD LAB BLOOD ORDERAB LES Final Result SAMAN DUMONT [address] [facility] Department [place] [address] * (ABNORMAL) CBC with auto differential (10/02/2023 5:14 AM MEAL GRINDER TENDER) [facility] WBC 6.6 3.8 - 9.9 K/cumm [facility] Hgb 13.0 13.0 - 17.5 g/dL [facility] Comment: Interpretive Data A reference range for this assay has not been established for patients with an unknown legal sex. Please refer to the laboratory test catalog for established sex-specific reference intervals. Current interpretive data was last revised on 2023. Hct 37.2(L) 38.9 - 50.3 % [facility] Comment: Interpretive Data A reference range for this assay has not been established for patients with an unknown legal sex. Please refer to the laboratory test catalog for established sex-specific reference intervals. Current interpretive data was last revised on 2023. Plt 158 150 - 400 K/cumm [facility] MPV 10.1 9.1 - 12.3 fL [facility] RBC 3.93(L) 4.30 - 5.80 M/cumm [facility] Comment: Interpretive Data A reference range for this assay has not been established for patients with an unknown legal sex. Please refer to the laboratory test catalog for established sex-specific reference intervals. Current interpretive data was last revised on 2023. MCV 94.7 81.3 - 96.4 fL [facility] MCH 33.1 27.1 - 33.3 pg [facility] MCHC 34.9 32.3 - 35.7 g/dL [facility] RDW CV 14.3 11.1 - 14.9 % [facility] RDW SD 45.7 35.7 - 48.1 fL [facility] NRBC abs 0.00 0.00 - 0.01 K/cumm [facility] Blood 10/02/2023 5:14 AM MEAL GRINDER TENDER 10/02/2023 5:28 AM MEAL GRINDER TENDER us Donal Cabrera MD LAB BLOOD ORDERAB LES Final [facility] [address] [facility] Department [place] [address] * (ABNORMAL) Hepatic function panel (10/02/2023 5:14 AM MEAL GRINDER TENDER) [facility] Bilirubin, total 0.5 0.1 - 1.2 mg/dL [facility] Bilirubin, direct <0.2 0.1 - 0.3 mg/dL [facility] Protein, pl 6.3(L) 6.5 - 8.5 g/dL [facility] Albumin 3.3(L) 3.5 - 5.0 g/dL [facility] Alk phos 77 40 - 130 Units/L [facility] ALT 42 7 - 55 Units/L [facility] AST 36 10 - 50 Units/L [facility] Blood 10/02/2023 5:14 AM MEAL GRINDER TENDER 10/02/2023 5:28 AM MEAL GRINDER TENDER us Donal Cabrera MD LAB BLOOD ORDERAB LES Final Result [facility] [address] [facility] Department [place] [address] * (ABNORMAL) Basic metabolic panel (10/02/2023 5:14 AM MEAL GRINDER TENDER) [facility] Sodium 139 135 - 145 mmol/L [facility] Potassium, pl 4.0 3.3 - 4.9 mmol/L [facility] Chloride 105 97 - 110 mmol/L [facility] CO2 26 22 - 32 mmol/L [facility] Anion gap 8 2 - 15 mmol/L [facility] BUN 8 6 - 25 mg/dL [facility] Creatinine 0.60(L) 0.80 - 1.30 mg/dL [facility] Glucose 98 70 - 199 mg/dL [facility] Comment: Interpretive Data Fasting glucose >/= 126 [...] classification and Diagnosis of Diabetes Diabetes Care 2021; 46: S19-S40. Current interpretive data was last revised 2022. Calcium 8.7 8.5 - 10.3 mg/dL [facility] Blood 10/02/2023 5:14 AM MEAL GRINDER TENDER 10/02/2023 5:28 AM MEAL GRINDER TENDER us Donal Cabrera MD LAB BLOOD ORDERAB LES Final Result [facility] DUMONT [address] [facility] Department [place] [address] * CT Abdomen Pelvis WO Contrast (10/01/2023 4:23 PM MEAL GRINDER TENDER) Anatomical Region Laterality Modality Body N/A Computed Tomogra phy 10/01/2023 5:01 PM MEAL GRINDER TENDER Narrative 10/01/2023 5:05 PM MEAL GRINDER TENDER EXAM DESCRIPTION: ?? CT ABDOMEN PELVIS WO CONTRAST REASON FOR STUDY: ?? Abdominal pain, acute, nonlocalized ?? Abdominal pain. ??38M with hx significant for alcohol dependence, alcohol abuse, and cirrhosis presented with alcohol intoxication and was admitted for alcohol withdrawal treatment. He had been at [facility] after sustaining a hip ?? fracture and was on a 7-day leave when he started drinking alcohol heavily (20-30 beers daily). Last drink was one day COO. Pt was started on CIWA protocol. Pt reported hallucinations and tremors. Pt reported abdominal pain. KUB neg for acute process. ?? CT pending. ? Hx: ?? Alcoholism, Cirrhosis, Peptic Ulceration ?? TECHNIQUE: CT scan of the abdomen and pelvis performed without intravenous and without ??oral contrast using helical scanning technique. Reconstructed coronal and sagittal MPR images reviewed. All images stored on PACS. Automated exposure control was used as a dose optimization technique for this examination. COMPARISON: ?? None available REFERENCE: Per ACR white paper recommendations, unless otherwise specified no follow-up imaging is recommended for incidental renal and adrenal lesions per consensus recommendations based on imaging criteria. Further lab evaluation could be pursued based on clinical findings. FINDINGS: The sensitivity for detection of visceral lesions is diminished without the use of intravenous contrast. LOWER CHEST: ?? No significant pulmonary abnormalities. No effusion. LIVER: ?? The liver has a diffusely cirrhotic morphology. ??Evaluation for hepatic lesions is significantly limited on this noncontrast examination GALLBLADDER: ?? No stones identified. No wall thickening or inflammatory changes. BILE DUCTS: ?? No intrahepatic or extrahepatic ductal dilatation. SPLEEN: ?? Normal size. ??No focal lesions. PANCREAS: ?? No identified cystic or solid masses. ??No significant calcifications. No adjacent inflammation or peripancreatic fluid collections. Pancreatic duct not dilated. ADRENALS: ?? Normal. KIDNEYS/URINARY TRACT: ?? No identified significant cystic or solid masses. No stones. No hydronephrosis or hydroureter. ?Urinary bladder is unremarkable. GI: ?? No dilated bowel loops. No obvious wall thickening. ??Normal appendix. ?? No significant diverticular disease. PERITONEUM: ?? No ascites or free air. RETROPERITONEUM: ?? No mass or adenopathy. REPRODUCTIVE: ?? No significant abnormality. VASCULATURE: ?? No abdominal aortic aneurysm. MUSCULOSKELETAL: ?? Age indeterminate fracture through the base of the femoral head. ??There appears to be significant reabsorption of the femoral neck. ?? There is proximal migration of the distal femur. ??This is unchanged compared to radiograph dated August 25, 2022. ??Fat containing umbilical hernia. OTHER: ?? No other abnormality. IMPRESSION: No acute findings identified to suggest etiology of the patient's symptoms. Cirrhosis of the liver. Age indeterminate fracture through the base of the femoral head. There appears to be significant reabsorption of the femoral neck. There is proximal migration of the distal femur. This is unchanged compared to radiograph dated August 25, 2022. Fat containing umbilical hernia. THIS IS AN ELECTRONICALLY VERIFIED FINAL REPORT 10/01/2023 5:05 PM - Electronically signed by ??Chun ADAMS D: ??10/01/2023 5:05 PM T: Report ID: [id number] Reading Location: ??[id number] Procedure Note Chun Hector MD - 10/01/2023 EXAM DESCRIPTION: CT ABDOMEN PELVIS WO CONTRAST REASON FOR STUDY: Abdominal pain, acute, nonlocalized Abdominal pain. 38M with hx significant for alcohol dependence, alcohol abuse, and cirrhosis presented with alcohol intoxication and was admittedfor alcohol withdrawal treatment. He had been at [facility] after sustaining a hip fracture and was on a 7-day leave when he started drinking alcohol heavily (20-30 beers daily). Last drink was one day COO.Pt was started on CIWA protocol. Pt reported hallucinations and tremors. Pt reported abdominal pain. KUB neg for acute process. CT pending. Hx: Alcoholism, Cirrhosis, Peptic Ulceration TECHNIQUE: CT scan of the abdomen and pelvis performed without intravenousand without oral contrast using helical scanning technique. Reconstructed coronal and sagittal MPR images reviewed. All images stored on PACS.Automated exposure control was used as a dose optimization technique for this examination. COMPARISON: None available REFERENCE: Per ACR white paper recommendations, unless otherwise specifiedno follow-up imaging is recommended for incidental renal and adrenal lesionsper consensus recommendations based on imaging criteria. Further labevaluation could be pursued based on clinical findings. FINDINGS: The sensitivity for detection of visceral lesions is diminished without the use of intravenous contrast. LOWER CHEST: No significant pulmonary abnormalities. No effusion. LIVER: The liver has a diffusely cirrhotic morphology. Evaluation for hepatic lesions is significantly limited on this noncontrast examination GALLBLADDER: No stones identified. No wall thickening or inflammatory changes. BILE DUCTS: No intrahepatic or extrahepatic ductal dilatation. SPLEEN: Normal size. No focal lesions. PANCREAS: No identified cystic or solid masses. No significant calcifications. No adjacent inflammation or peripancreatic fluidcollections. Pancreatic duct not dilated. ADRENALS: Normal. KIDNEYS/URINARY TRACT: No identified significant cystic or solid masses.No stones. No hydronephrosis or hydroureter. Urinary bladder isunremarkable. GI: No dilated bowel loops. No obvious wall thickening. Normalappendix. No significant diverticular disease. PERITONEUM: No ascites or free air. RETROPERITONEUM: No mass or adenopathy. REPRODUCTIVE: No significant abnormality. VASCULATURE: No abdominal aortic aneurysm. MUSCULOSKELETAL: Age indeterminate fracture through the base of thefemoral head. There appears to be significant reabsorption of the femoral neck. There is proximal migration of the distal femur. This is unchangedcompared to radiograph dated August 25, 2022. Fat containing umbilical hernia. OTHER: No other abnormality. IMPRESSION: No acute findings identified to suggest etiology of the patient'ssymptoms. Cirrhosis of the liver. Age indeterminate fracture through the base of the femoral head. There appears to be significant reabsorption of the femoral neck. There isproximal migration of the distal femur. This is unchanged compared to radiographdated August 25, 2022. Fat containing umbilical hernia. THIS IS AN ELECTRONICALLY VERIFIED FINAL REPORT 10/01/2023 5:05 PM - Electronically signed by Chun ADAMS T: Report ID: [id number] Reading Location: [id number] us Donal Cabrera MD IMG CT PROCEDURES Final Result * eGFR (10/01/2023 5:20 AM MEAL GRINDER TENDER) eGFR 126 mL/min/1. 73 m2 SAMAN DUMONT Comment: Interpretive [...] interpretive data was last reviewed 2021. Blood 10/01/2023 5:20 AM MEAL GRINDER TENDER 10/01/2023 6:08 AM MEAL GRINDER TENDER us Donal Cabrera MD LAB BLOOD ORDERAB LES Final Result [facility] [address] [facility] [place] [address] * Differential, auto (10/01/2023 5:20 AM MEAL GRINDER TENDER) Pathologist [facility] Neutrophil abs 3.4 1.5 - 6.5 K/cumm [facility] Imm gran abs 0.0 0.0 - 0.1 K/cumm [facility] Lymphocyte abs 1.4 0.8 - 3.3 K/cumm [facility] Monocyte abs 0.7 0.2 - 0.8 K/cumm [facility] Eosinophil abs 0.2 0.0 - 0.5 K/cumm [facility] Basophil abs 0.1 0.0 - 0.1 K/cumm [facility] Neutrophil pct 58.9 % [facility] Comment: Interpretive Data Percent cell count reference ranges are not reported, since discordance with absolute values may lead to misinterpretation of CBC data. Current Interpretive Data was last revised on 2018. Imm gran pct 0.5 % [facility] Comment: Interpretive Data Percent cell count reference ranges are not reported, since discordance with absolute values may lead to misinterpretation of CBC data. Current Interpretive Data was last revised on 2018. Lymphocyte pct 23.7 % [facility] Comment: Interpretive Data Percent cell count reference ranges are not reported, since discordance with absolute values may lead to misinterpretation of CBC data. Current Interpretive Data was last revised on 2018. Monocyte pct 12.9 % [facility] Comment: Interpretive Data Percent cell count reference ranges are not reported, since discordance with absolute values may lead to misinterpretation of CBC data. Current Interpretive Data was last revised on 2018. Eosinophil pct 3.0 % [facility] Comment: Interpretive Data Percent cell count reference ranges are not reported, since discordance with absolute values may lead to misinterpretation of CBC data. Current Interpretive Data was last revised on 2018. Basophil pct 1.0 % [facility] Comment: Interpretive Data Percent cell count reference ranges are not reported, since discordance with absolute values may lead to misinterpretation of CBC data. Current Interpretive Data was last revised on 2018. Blood 10/01/2023 5:20 AM MEAL GRINDER TENDER 10/01/2023 6:08 AM MEAL GRINDER TENDER us Donal Cabrera MD LAB BLOOD ORDERAB LES Final Result [facility] [address] [facility] Department [place] [address] * (ABNORMAL) CBC with auto differential (10/01/2023 5:20 AM MEAL GRINDER TENDER) [facility] WBC 5.7 3.8 - 9.9 K/cumm [facility] Hgb 12.5(L) 13.0 - 17.5 g/dL [facility] Comment: Interpretive Data A reference range for this assay has not been established for patients with an unknown legal sex. Please refer to the laboratory test catalog for established sex-specific reference intervals. Current interpretive data was last revised on 2023. Hct 35.8(L) 38.9 - 50.3 % [facility] Comment: Interpretive Data A reference range for this assay has not been established for patients with an unknown legal sex. Please refer to the laboratory test catalog for established sex-specific reference intervals. Current interpretive data was last revised on 2023. Plt 153 150 - 400 K/cumm [facility] MPV 10.5 9.1 - 12.3 fL [facility] RBC 3.83(L) 4.30 - 5.80 M/cumm [facility] Comment: Interpretive Data A reference range for this assay has not been established for patients with an unknown legal sex. Please refer to the laboratory test catalog for established sex-specific reference intervals. Current interpretive data was last revised on 2023. MCV 93.5 81.3 - 96.4 fL [facility] MCH 32.6 27.1 - 33.3 pg [facility] MCHC 34.9 32.3 - 35.7 g/dL [facility] RDW CV 13.7 11.1 - 14.9 % [facility] RDW SD 44.2 35.7 - 48.1 fL [facility] NRBC abs 0.00 0.00 - 0.01 K/cumm [facility] Blood 10/01/2023 5:20 AM MEAL GRINDER TENDER 10/01/2023 6:08 AM MEAL GRINDER TENDER Donal Cabrera MD LAB BLOOD ORDERAB LES Final Result Performing Organization Address [facility] de Phone Number SAMAN [address] [place] [address] * (ABNORMAL) Hepatic function panel (10/01/2023 5:20 AM MEAL GRINDER TENDER) Pathologist [facility] Bilirubin, total 0.6 0.1 - 1.2 mg/dL [facility] Bilirubin, direct <0.2 0.1 - 0.3 mg/dL [facility] Protein, pl 6.3(L) 6.5 - 8.5 g/dL [facility] Albumin 3.2(L) 3.5 - 5.0 g/dL [facility] Alk phos 78 40 - 130 Units/L [facility] ALT 41 7 - 55 Units/L [facility] AST 39 10 - 50 Units/L [facility] Blood 10/01/2023 5:20 AM MEAL GRINDER TENDER 10/01/2023 6:08 AM MEAL GRINDER TENDER Donal Cabrera MD LAB BLOOD ORDERAB LES Final Result Performing Organization Address City/[facility] Co de Phone Number SAMAN [address] [place] [address] * (ABNORMAL) Basic metabolic panel (10/01/2023 5:20 AM MEAL GRINDER TENDER) Pathologist [facility] Sodium 140 135 - 145 mmol/L [facility] Potassium, pl 3.7 3.3 - 4.9 mmol/L [facility] Chloride 105 97 - 110 mmol/L [facility] CO2 24 22 - 32 mmol/L [facility] Anion gap 11 2 - 15 mmol/L [facility] BUN 9 6 - 25 mg/dL [facility] Creatinine 0.60(L) 0.80 - 1.30 mg/dL [facility] Glucose 97 70 - 199 mg/dL [facility] Comment: Interpretive Data Fasting glucose >/= 126 [...] classification and Diagnosis of Diabetes Diabetes Care 202; 46: S19-S40. Current interpretive data was last revised 2022. Calcium 8.6 8.5 - 10.3 mg/dL [facility] Blood 10/01/2023 5:20 AM MEAL GRINDER TENDER 10/01/2023 6:08 AM MEAL GRINDER TENDER Donal Cabrera MD LAB BLOOD ORDERAB LES Final Result Performing Organization Address [facility] Co de Phone Number [address] [place] [address] * POCT glucose (09/30/2023 9:05 PM MEAL GRINDER TENDER) [facility] Glucose, POC 119 70 - 199 mg/dL [facility] Glucose comment 1 Use This Result [facility] Glucose comment 2 RN/MD Notified [facility] Blood 09/30/2023 9:05 PM MEAL GRINDER TENDER 09/30/2023 9:05 PM MEAL GRINDER TENDER Donal Cabrera MD LAB POCT ORDERABL ES - DEVICE Final Result Performing Organization Address [facility] Co de Phone Number [address] [email or web address] [address] * XR Kub (09/30/2023 12:26 PM MEAL GRINDER TENDER) Anatomical Region Laterality Modality Body, Abdomen N/A Computed Radiogr aphy 09/30/2023 1:04 PM MEAL GRINDER TENDER Narrative 09/30/2023 1:06 PM MEAL GRINDER TENDER EXAM DESCRIPTION: ?? XR KUB REASON FOR STUDY: ?? pain ?? Pt sts abdominal pain, it feels like my stomach is about to explode . Pt sts he was dx w/ cirrhosis. ? TECHNIQUE: A total of 2 frontal ??radiographic view of the abdomen. COMPARISON: ?? None available. FINDINGS: Are gas-filled loops of large and small bowel. ??A gas containing loop of bowel overlies the pelvis. ??Right femoral neck deformity as seen on the previous radiographs dated 08/25/2022. IMPRESSION: ?? Nonobstructed bowel-gas pattern. THIS IS AN ELECTRONICALLY VERIFIED FINAL REPORT 09/30/2023 1:06 PM - Electronically signed by ??Chuckie Cornelius D.O. Chuckie Cornelius D.O. AP D: ??09/30/2023 1:06 PM T: Report ID: [id number] Reading Location: ??[id number] Procedure Note Chuckie Cornelius DO - 09/30/2023 EXAM DESCRIPTION: XR KUB REASON FOR STUDY: pain Pt sts abdominal pain, it feels like my stomach is about to explode . Ptsts he was dx w/ cirrhosis. TECHNIQUE: A total of 2 frontal radiographic view of the abdomen. COMPARISON: None available. FINDINGS: Are gas-filled loops of large and small bowel. A gas containing loop of bowel overlies the pelvis. Right femoral neck deformity as seenon the previous radiographs dated 08/25/2022. IMPRESSION: Nonobstructed bowel-gas pattern. THIS IS AN ELECTRONICALLY VERIFIED FINAL REPORT 09/30/2023 1:06 PM - Electronically signed by Chuckie Cornelius D.O. Chuckie Cornelius D.O. AP T: Report ID: [id number] Reading Location: [place] [address] Donal Cabrera MD IMG XR PROCEDURES Final Result * eGFR (09/30/2023 6:13 AM MEAL GRINDER TENDER) eGFR 133 mL/min/1. 73 m2 SAMAN DUMONT Comment: Interpretive [...] interpretive data was last reviewed 2021. Blood 09/30/2023 6:13 AM MEAL GRINDER TENDER 09/30/2023 6:25 AM MEAL GRINDER TENDER us Donal Cabrera MD LAB BLOOD ORDERAB LES Final Result [facility] [address] [facility] Department [place] [address] * Differential, auto (09/30/2023 6:13 AM MEAL GRINDER TENDER) Neutrophil abs 4.6 1.5 - 6.5 K/cumm [facility] Imm gran abs 0.0 0.0 - 0.1 K/cumm [facility] Lymphocyte abs 1.2 0.8 - 3.3 K/cumm [facility] Monocyte abs 0.8 0.2 - 0.8 K/cumm [facility] Eosinophil abs 0.2 0.0 - 0.5 K/cumm [facility] Basophil abs 0.1 0.0 - 0.1 K/cumm [facility] Neutrophil pct 67.4 % [facility] Comment: Interpretive Data Percent cell count reference ranges are not reported, since discordance with absolute values may lead to misinterpretation of CBC data. Current Interpretive Data was last revised on 2018. Imm gran pct 0.4 % [facility] Comment: Interpretive Data Percent cell count reference ranges are not reported, since discordance with absolute values may lead to misinterpretation of CBC data. Current Interpretive Data was last revised on 2018. Lymphocyte pct 17.7 % [facility] Comment: Interpretive Data Percent cell count reference ranges are not reported, since discordance with absolute values may lead to misinterpretation of CBC data. Current Interpretive Data was last revised on 2018. Monocyte pct 11.3 % [facility] Comment: Interpretive Data Percent cell count reference ranges are not reported, since discordance with absolute values may lead to misinterpretation of CBC data. Current Interpretive Data was last revised on 2018. Eosinophil pct 2.5 % [facility] Comment: Interpretive Data Percent cell count reference ranges are not reported, since discordance with absolute values may lead to misinterpretation of CBC data. Current Interpretive Data was last revised on 2018. Basophil pct 0.7 % [facility] Comment: Interpretive Data Percent cell count reference ranges are not reported, since discordance with absolute values may lead to misinterpretation of CBC data. Current Interpretive Data was last revised on 2018. Blood 09/30/2023 6:13 AM MEAL GRINDER TENDER 09/30/2023 6:25 AM MEAL GRINDER TENDER us Donal Cabrera MD LAB BLOOD ORDERAB LES Final Result [facility] [address] [facility] Department [place] [address] * (ABNORMAL) CBC with auto differential (09/30/2023 6:13 AM MEAL GRINDER TENDER) [facility] WBC 6.8 3.8 - 9.9 K/cumm [facility] Hgb 12.2(L) 13.0 - 17.5 g/dL SAMAN Comment: Interpretive Data A reference range for this assay has not been established for patients with an unknown legal sex. Please refer to the laboratory test catalog for established sex-specific reference intervals. Current interpretive data was last revised on 2023. Hct 34.9(L) 38.9 - 50.3 % SAMAN Comment: Interpretive Data A reference range for this assay has not been established for patients with an unknown legal sex. Please refer to the laboratory test catalog for established sex-specific reference intervals. Current interpretive data was last revised on 2023. Plt 143(L) 150 - 400 K/cumm [facility] MPV 9.7 9.1 - 12.3 fL [facility] RBC 3.73(L) 4.30 - 5.80 M/cumm [facility] Comment: Interpretive Data A reference range for this assay has not been established for patients with an unknown legal sex. Please refer to the laboratory test catalog for established sex-specific reference intervals. Current interpretive data was last revised on 2023. MCV 93.6 81.3 - 96.4 fL [facility] MCH 32.7 27.1 - 33.3 pg [facility] MCHC 35.0 32.3 - 35.7 g/dL [facility] RDW CV 13.1 11.1 - 14.9 % [facility] RDW SD 43.8 35.7 - 48.1 fL [facility] NRBC abs 0.00 0.00 - 0.01 K/cumm [facility] Blood 09/30/2023 6:13 AM MEAL GRINDER TENDER 09/30/2023 6:25 AM MEAL GRINDER TENDER Donal Cabrera MD LAB BLOOD ORDERAB LES Final Result [facility] [address] [facility] Department of Laboratories [place], [place] [id number] * (ABNORMAL) Hepatic function panel (09/30/2023 6:13 AM MEAL GRINDER TENDER) Pathologist [facility] Bilirubin, total 1.3(H) 0.1 - 1.2 mg/dL [facility] Bilirubin, direct 0.4(H) 0.1 - 0.3 mg/dL [facility] Protein, pl 5.9(L) 6.5 - 8.5 g/dL [facility] Albumin 3.3(L) 3.5 - 5.0 g/dL [facility] Alk phos 74 40 - 130 Units/L [facility] ALT 42 7 - 55 Units/L [facility] AST 47 10 - 50 Units/L [facility] Blood 09/30/2023 6:13 AM MEAL GRINDER TENDER 09/30/2023 6:25 AM MEAL GRINDER TENDER Donal Cabrera MD LAB BLOOD ORDERAB LES Final Result [facility] [address] [facility] Department [place] [address] * (ABNORMAL) Basic metabolic panel (09/30/2023 6:13 AM MEAL GRINDER TENDER) [facility] Sodium 138 135 - 145 mmol/L [facility] Potassium, pl 3.3 3.3 - 4.9 mmol/L [facility] Chloride 103 97 - 110 mmol/L [facility] CO2 23 22 - 32 mmol/L [facility] Anion gap 12 2 - 15 mmol/L [facility] BUN 6 6 - 25 mg/dL [facility] Creatinine 0.50(L) 0.80 - 1.30 mg/dL [facility] Glucose 74 70 - 199 mg/dL [facility] Comment: Interpretive Data Fasting glucose >/= 126 [...] classification and Diagnosis of Diabetes Diabetes Care 2021; 46: S19-S40. Current interpretive data was last revised 2022. Calcium 8.5 8.5 - 10.3 mg/dL [facility] Blood 09/30/2023 6:13 AM MEAL GRINDER TENDER 09/30/2023 6:25 AM MEAL GRINDER TENDER Donal Cabrera MD LAB BLOOD ORDERAB LES Final Result [facility] [address] [facility] Department [place] [address] * Protime-INR (09/30/2023 6:13 AM MEAL GRINDER TENDER) Pathologist [facility] PT 14.6 12.0 - 14.6 sec SAMAN INR 1.1 0.9 - 1.2 SAMAN Comment: Ref Range High Interpretive data Oral anticoagulant therapeutic ranges: Venous thromboembolism prophylaxis or treatment: 2.0-3.0 CARDIOLOGY Standard range: 2.0-3.0 High-intensity range: 2.5-3.5 Refer to indication-specific guidelines for appropriate target ranges for prosthetic heart valve replacement. Current interpretive data was last revised on 2019. Blood 09/30/2023 6:13 AM MEAL GRINDER TENDER 09/30/2023 6:25 AM MEAL GRINDER TENDER us Donal Cabrera MD LAB BLOOD ORDERAB LES Final Result [facility] [address] [facility] Department [place] [address] * TRANSTHORACIC ECHO (TTE) COMPLETE W DOPPLER/CF WO CONTRAST (09/29/2023 9:41 AM MEAL GRINDER TENDER) Anatomical Region Laterality Modality Ultrasound 09/29/2023 9:41 AM MEAL GRINDER TENDER Narrative 09/29/2023 5:41 PM MEAL GRINDER TENDER ? Adult Echocardiogram + ----- + :Name: LOVE DIAZ ??Study Date: 09/29/2023 ?Status: MHB ?: : ?Patient Location: [facility] 2 CTR^[id number]^MHHeight: 67 in ?: : ?Weight: 193 lbBP: 144/87 mmHg: :: 1985 ? Gender: Male ?BSA: 2.0 m2 ?: :Reason For Study: chest pain ? : :Ordering Physician: ?: :SHOEMAKER, ISIDRA ? : : ? : :Performed By: Jimmy Banegas, ?: :RCS, RVT ? : + ----- + Procedure A two-dimensional transthoracic echocardiogram with color flow and Doppler was performed. Left Ventricle Left ventricular chamber size is normal. There is normal left ventricular wall thickness. Left ventricular systolic function appears to be normal. Ejection Fraction = 55-60%. Technically inadequate to evaluate wall motion abnormalities. No obvious regional wall motion abnormalities noted. Right Ventricle The right ventricle is normal in size and function. Atria The left atrial size is normal. Right atrial size is normal. Atrial septum not well seen. Mitral Valve The mitral valve is normal. There is no evidence of mitral valve prolapse. There is no mitral valve stenosis. There is no mitral regurgitation noted. Tricuspid Valve The tricuspid valve is not well visualized. No tricuspid regurgitation. Cannot assess RVSP due to lack of sufficient TR jet. Aortic Valve The aortic valve is not well visualized. Difficult to assess number of leaflets. No aortic stenosis . No aortic regurgitation is present. Pulmonic Valve The pulmonic valve is not well seen, but is grossly normal. Trace pulmonic valvular regurgitation. Great Vessels The aortic root is normal size. Pericardium There is no pericardial effusion. Diastology E to A reversal suggestive of abnormal relaxation during early diastole. E/E prime ratio is <8 suggesting normal pulmonary wedge pressure and no LV diastolic dysfunction. Interpretation Summary Left ventricular systolic function appears to be normal. Ejection Fraction = 55-60%. Technically inadequate to evaluate wall motion abnormalities. Trace pulmonic valvular regurgitation. E to A reversal suggestive of abnormal relaxation during early diastole. + + :Measurements with Normals ?: :IVSd: ?(0.6-1.2 ?? LVIDd: ?(3.5-5.7 ?? Ao root diam: ?(2.0-3.7 ?? : :0.88 cm ?cm) ?4.2 cm ?cm) ?2.3 cm ? cm) ?: :LVPWd: ? (0.6-1.1 ?? LVIDs: ?(3.1-4.6 ?? LA dimension: ?(1.9-4.0 ?? : :0.76 cm ?cm) ?2.8 cm ?cm) ?3.0 cm ? cm) ?: + + MMode/2D Measurements & Calculations FS: 34.2 % ? Ao root area: 4.2 cm2 EDV(Teich): 80.4 ml ESV(Teich): 29.3 ml Doppler Measurements & Calculations MV E max debora: ?Ao V2 max: ? LV V1 max PG: ?PA V2 max: 60.0 cm/sec ?125.0 cm/sec ? 3.8 mmHg ? 104.0 cm/sec MV A max debora: ?Ao max P.3 mmHgLV V1 max: ? PA max P.3 mmHg 67.9 cm/sec ? 97.0 cm/sec MV E/A: 0.88 ? RV V1 max: 78.6 cm/sec Electronically signed by: Jinny Zepeda MD 09/29/2023 05:41 PM Procedure Note Jinny Zepeda MD - 09/29/2023 Adult Echocardiogram + ----- + :Name: LOVE DIAZ Study Date: 09/29/2023Status: MHB : : Patient Location: [address]^[id number]^MHHeight: 67 in : : : 193 lbBP: 144/87 mmHg: :: 1985 Gender: MaleBSA: 2.0 m2 : :Reason For Study: chest pain: :Ordering Physician:: :ISIDRA VEGA: :: :Performed By: Jimmy Banegas,: :MELISSA RVT: + ----- + Procedure A two-dimensional transthoracic echocardiogram with color flow and Dopplerwas performed. Left Ventricle Left ventricular chamber size is normal. There is normal left ventricularwall thickness. Left ventricular systolic function appears to be normal.Ejection Fraction = 55-60%. Technically inadequate to evaluate wall motion abnormalities. No obvious regional wall motion abnormalities noted. Right Ventricle The right ventricle is normal in size and function. Atria The left atrial size is normal. Right atrial size is normal. Atrial septumnot well seen. Mitral Valve The mitral valve is normal. There is no evidence of mitral valveprolapse. There is no mitral valve stenosis. There is no mitral regurgitationnoted. Tricuspid Valve The tricuspid valve is not well visualized. No tricuspid regurgitation.Cannot assess RVSP due to lack of sufficient TR jet. Aortic Valve The aortic valve is not well visualized. Difficult to assess number of leaflets. No aortic stenosis . No aortic regurgitation is present. Pulmonic Valve The pulmonic valve is not well seen, but is grossly normal. Tracepulmonic valvular regurgitation. Great Vessels The aortic root is normal size. Pericardium There is no pericardial effusion. Diastology E to A reversal suggestive of abnormal relaxation during early diastole.E/E prime ratio is <8 suggesting normal pulmonary wedge pressure and no LV diastolic dysfunction. Interpretation Summary Left ventricular systolic function appears to be normal. Ejection Fraction = 55-60%. Technically inadequate to evaluate wall motion abnormalities. Trace pulmonic valvular regurgitation. E to A reversal suggestive of abnormal relaxation during early diastole. + + :Measurements with Normals: :IVSd: (0.6-1.2 LVIDd: (3.5-5.7 Ao root diam:(2.0-3.7 : :0.88 cm cm) 4.2 cm cm) 2.3 cm cm): :LVPWd: (0.6-1.1 LVIDs: (3.1-4.6 LA dimension:(1.9-4.0 : :0.76 cm cm) 2.8 cm cm) 3.0 cm cm): + + MMode/2D Measurements & Calculations FS: 34.2 % Ao root area: 4.2 cm2 EDV(Teich): 80.4 ml ESV(Teich): 29.3 ml Doppler Measurements & Calculations MV E max debora: Ao V2 max: LV V1 max PG: PA V2 max: 60.0 cm/sec 125.0 cm/sec 3.8 mmHg 104.0 cm/sec MV A max debora: Ao max P.3 mmHgLV V1 max: PA max P.3mmHg 67.9 cm/sec 97.0 cm/sec MV E/A: 0.88 RV V1 max: 78.6 cm/sec Electronically signed by: Jinny Zepeda MD 09/29/2023 05:41 PM Isidra Vega NP CV ECHO PROCEDURES Final Resu lt * ECG 12 lead (09/29/2023 7:20 AM MEAL GRINDER TENDER) Ventricular Rate EKG/Min 99 BPM [facility] Atrial Rate 99 BPM [facility] NV-Interval (MSEC) 108 ms [facility] QRS-Interval (MSEC) 90 ms [facility] QT-Interval (MSEC) 362 ms [facility] QTc 464 ms [facility] P [place] 38 degrees [facility] R [place] -4 degrees [facility] T [place] 18 degrees [facility] Diagnosis Sinus rhythm with short NV possible inferior infarct Abnormal ECG When compared with ECG of 28-SEP-2023 18:34, Premature ventricular complexes are no longer Present Inferior infarct is now Present Confirmed by LEEANN GUZMAN M.D. ([id number]) on 09/30/2023 1:02:29 AM [facility] 09/29/2023 7:20 AM MEAL GRINDER TENDER 09/30/2023 1:02 AM MEAL GRINDER TENDER Manuelito Hannah MD ECG ORDERABLES Final Result [facility] * Influenza A/B, RSV, and COVID-19 PCR Nasopharyngeal (09/29/2023 6:00 AM MEAL GRINDER TENDER) Pathologist [facility] COVID-19 RNA Negative Negative [facility]AN Influenza A RNA Negative Negative [facility] Influenza B RNA Negative Negative [facility]AN RSV RNA Negative Negative [facility] Comment: Interpretive data: This test is performed using the [employer] Xpert Xpress CoV-2/Flu/RSV plus assay. This is a [...] out infection. Interpretive Data last revised 2021. Nasopharyngeal 09/29/2023 6: 00 AM MEAL GRINDER TENDER 09/29/2023 6:20 AM MEAL GRINDER TENDER Narrative [facility] - 09/29/2023 7:43 AM MEAL GRINDER TENDER Is the Patient experiencing symptoms consistent with COVID?->Yes Date of Symptom Onset->09/29/23 Reason for testing?->Symptomatic Result [facility] Manuelito Hannah MD LAB MICROBIOLOGY - GE NERAL ORDERABLES Final Result [facility] [address] [facility] Department [place] [address] * eGFR (09/29/2023 5:37 AM MEAL GRINDER TENDER) eGFR 126 mL/min/1. 73 m2 [facility] Comment: Interpretive Data Reference Interval Normal ?>/= [...] interpretive data was last reviewed 2021. Blood 09/29/2023 5:37 AM MEAL GRINDER TENDER 09/29/2023 6:27 AM MEAL GRINDER TENDER us Manuelito Hannah MD LAB BLOOD ORDERABLES Final Result [facility] [address] [facility] Department [place] [address] * Lipase (09/29/2023 5:37 AM MEAL GRINDER TENDER) Pathologist [facility] Lipase 64 10 - 99 Units/L [facility] Blood 09/29/2023 5:37 AM MEAL GRINDER TENDER 09/29/2023 6:27 AM MEAL GRINDER TENDER us Manuelito Hannah MD LAB BLOOD ORDERABLES Final Result Performing Organization Address City/[facility] Co de Phone Number SAMAN [address] [address] * Salicylate level (09/29/2023 5:37 AM MEAL GRINDER TENDER) [facility] Salicylate <1.0 <=1.0 mg/dL [facility] Comment: Interpretive Data Toxic: 30 mg/dL or greater. Current interpretive data was last revised 2023. Blood 09/29/2023 5:37 AM MEAL GRINDER TENDER 09/29/2023 6:27 AM MEAL GRINDER TENDER Manuelito Hannah MD LAB BLOOD ORDERABLES Final Result Performing Organization Address [facility] de Phone Number SAMAN [address] [address] * (ABNORMAL) CBC without differential (09/29/2023 5:37 AM MEAL GRINDER TENDER) [facility] WBC 8.4 3.8 - 9.9 K/cumm [facility] Hgb 12.7(L) 13.0 - 17.5 g/dL [facility] Comment: Interpretive Data A reference range for this assay has not been established for patients with an unknown legal sex. Please refer to the laboratory test catalog for established sex-specific reference intervals. Current interpretive data was last revised on 2023. Hct 36.2(L) 38.9 - 50.3 % [facility] Comment: Interpretive Data A reference range for this assay has not been established for patients with an unknown legal sex. Please refer to the laboratory test catalog for established sex-specific reference intervals. Current interpretive data was last revised on 2023. Plt 134(L) 150 - 400 K/cumm [facility] MPV 11.4 9.1 - 12.3 fL [facility] RBC 3.97(L) 4.30 - 5.80 M/cumm [facility] Comment: Interpretive Data A reference range for this assay has not been established for patients with an unknown legal sex. Please refer to the laboratory test catalog for established sex-specific reference intervals. Current interpretive data was last revised on 2023. MCV 91.2 81.3 - 96.4 fL [facility] MCH 32.0 27.1 - 33.3 pg [facility] MCHC 35.1 32.3 - 35.7 g/dL [facility] RDW CV 13.1 11.1 - 14.9 % [facility] RDW SD 42.7 35.7 - 48.1 fL [facility] NRBC abs 0.00 0.00 - 0.01 K/cumm [facility] Blood 09/29/2023 5:37 AM MEAL GRINDER TENDER 09/29/2023 6:27 AM MEAL GRINDER TENDER Manuelito Hannah MD LAB BLOOD ORDERABLES Final Result Performing Organization Address [facility] Co de Phone Number [address] [place] [address] * Phosphorus (09/29/2023 5:37 AM MEAL GRINDER TENDER) Phosphorus, pl 3.2 2.3 - 4.5 mg/dL [facility] Blood 09/29/2023 5:37 AM MEAL GRINDER TENDER 09/29/2023 6:27 AM MEAL GRINDER TENDER Manuelito Hannah MD LAB BLOOD ORDERABLES Final Result Performing Organization Address [facility] Co de Phone Number [address] [place] [address] * Magnesium (09/29/2023 5:37 AM MEAL GRINDER TENDER) Magnesium 1.9 1.4 - 2.5 mg/dL [facility] Blood 09/29/2023 5:37 AM MEAL GRINDER TENDER 09/29/2023 6:27 AM MEAL GRINDER TENDER Manuelito Hannah MD LAB BLOOD ORDERABLES Final Result Performing Organization Address City/[facility] Co de Phone Number [address] [email or web address] [address] * (ABNORMAL) Comprehensive metabolic panel (09/29/2023 5:37 AM MEAL GRINDER TENDER) Sodium 134(L) 135 - 145 mmol/L [facility] Potassium, pl 3.4 3.3 - 4.9 mmol/L [facility] Chloride 99 97 - 110 mmol/L [facility] CO2 22 22 - 32 mmol/L [facility] Anion gap 13 2 - 15 mmol/L [facility] BUN 10 6 - 25 mg/dL [facility] Creatinine 0.60(L) 0.80 - 1.30 mg/dL [facility] Glucose 75 70 - 199 mg/dL [facility] Comment: Interpretive Data Fasting glucose >/= 126 [...] classification and Diagnosis of Diabetes Diabetes Care 202; 46: S19-S40. Current interpretive data was last revised 2022. Calcium 8.2(L) 8.5 - 10.3 mg/dL [facility] Bilirubin, total 1.8(H) 0.1 - 1.2 mg/dL [facility] Protein, pl 7.0 6.5 - 8.5 g/dL [facility] Albumin 3.7 3.5 - 5.0 g/dL [facility] Alk phos 80 40 - 130 Units/L [facility] ALT 54 7 - 55 Units/L [facility] AST 69(H) 10 - 50 Units/L [facility] Blood 09/29/2023 5:37 AM MEAL GRINDER TENDER 09/29/2023 6:27 AM MEAL GRINDER TENDER us Manuelito Hannah MD LAB BLOOD ORDERABLES Final Result [facility] [address] [facility] Department [place] [address] * Troponin T high-sensitivity 6-hour (09/29/2023 12:51 AM MEAL GRINDER TENDER) Trop T hs 8 <=22 ng/L [facility]UMONT Comment: Interpretive Data For further hscTnT resources including the diagnostic algorithm and an aid in interpretation, copy and paste this link: https://nrl.testcatalog.org/show/hsTrop Current Interpretive Data last revised 2020. Trop T hs delta 0 ng/L [facility] DUMONT Trop T hs interp Insignificant [facility] DUMONT Blood 09/29/2023 12:5 1 AM MEAL GRINDER TENDER 09/29/2023 12:54 AM MEAL GRINDER TENDER us Yuko Naik DO LAB BLOOD ORDERABLES Final Resu lt [facility] [address] [facility] Department [place] [address] * XR Chest 1 Vw Portable (09/28/2023 11:32 PM MEAL GRINDER TENDER) Anatomical Region Laterality Modality Body, Chest N/A Computed Radiogr aphy 09/28/2023 11:3 5 PM MEAL GRINDER TENDER Narrative 09/28/2023 11:37 PM MEAL GRINDER TENDER EXAM DESCRIPTION: XR CHEST 1 VIEW REASON FOR STUDY: Alcohol withdrawal ?? Pt c/o CP since this morning. Pt reports drinking heavy for 7 days. Pt has hx liver failure. AOx4. ? TECHNIQUE: Single ??radiographic view(s) of the chest. COMPARISON: 11/08/2021. FINDINGS: LUNGS: ??No focal opacity, pleural effusion, or pneumothorax. ?? HEART/MEDIASTINUM: ??Cardiac silhouette normal in size. Mediastinal and hilar contours appear normal. LINES/TUBES: ??None. BONES: ??No acute osseous abnormality. IMPRESSION: No acute cardiopulmonary abnormality. THIS IS AN ELECTRONICALLY VERIFIED FINAL REPORT 09/28/2023 11:37 PM - Electronically signed by ??Rolando Jade M.D., Sid.O. Rolando Jade M.D., Sid.O. MW D: ??09/28/2023 11:37 PM T: Report ID: [id number] Reading Location: ??[id number] Procedure Note Rolando Jade MD - 09/28/2023 EXAM DESCRIPTION: XR CHEST 1 VIEW REASON FOR STUDY: Alcohol withdrawal Pt c/o CP since this morning. Pt reports drinking heavy for 7 days. Pt hashx liver failure. AOx4. TECHNIQUE: Single radiographic view(s) of the chest. COMPARISON: 11/08/2021. FINDINGS: LUNGS: No focal opacity, pleural effusion, or pneumothorax. HEART/MEDIASTINUM: Cardiac silhouette normal in size. Mediastinal andhilar contours appear normal. LINES/TUBES: None. BONES: No acute osseous abnormality. IMPRESSION: No acute cardiopulmonary abnormality. THIS IS AN ELECTRONICALLY VERIFIED FINAL REPORT 09/28/2023 11:37 PM - Electronically signed by Rolando Jade M.D., D.O. Rolando Jade M.D., Sid.O. T: Report ID: [id number] Reading Location: [place] [address] Mansoor Valdes MD IMG XR PROCEDURES Fin al Result * Troponin T high-sensitivity 4-hour (09/28/2023 10:30 PM MEAL GRINDER TENDER) Pathologist [facility] Trop T hs 8 <=22 ng/L [facility]AN DUMONT Comment: Interpretive Data For further hscTnT resources including the diagnostic algorithm and an aid in interpretation, copy and paste this link: https://nrl.testcatalog.org/show/hsTrop Current Interpretive Data last revised 2020. Trop T hs delta 0 ng/L SAMAN DUMONT Trop T hs interp Insignificant SAMAN DUMONT Blood 09/28/2023 10:3 0 PM MEAL GRINDER TENDER 09/28/2023 10:32 PM MEAL GRINDER TENDER Yuko Naik DO LAB BLOOD ORDERABLES Final Resu lt [facility] [address] [facility] Department [place] [address] * (ABNORMAL) Salicylate level (09/28/2023 9:02 PM MEAL GRINDER TENDER) Salicylate 1.3(H) <=1.0 mg/dL [facility] Comment: Interpretive Data Toxic: 30 mg/dL or greater. Current interpretive data was last revised 2023. Blood 09/28/2023 9:02 PM MEAL GRINDER TENDER 09/28/2023 9:07 PM MEAL GRINDER TENDER us Mansoor Valdes MD LAB BLOOD ORDERABLES Final Result Performing Organization Address [facility] de Phone Number [address] [address] * (ABNORMAL) Ethanol (09/28/2023 9:02 PM MEAL GRINDER TENDER) Ethanol 40(H) <=10 mg/dL [facility] Comment: Interpretive Data Legal limit of intoxication > or = 80 mg/dL Levels > or = 400 mg/dL are potentially TOXIC. Current interpretive data was last revised on 2018. Blood 09/28/2023 9:02 PM MEAL GRINDER TENDER 09/28/2023 9:07 PM MEAL GRINDER TENDER us Mansoor Valdes MD LAB BLOOD ORDERABLES Final Result Performing Organization Address [facility] de Phone Number [address] [address] * Acetaminophen level (09/28/2023 9:02 PM MEAL GRINDER TENDER) Acetaminophen <5 <=5 mcg/mL [facility] Comment: Interpretive Data Significant hepatic injury may occur and treatment with n-acetyl cysteine is generally recommended if the acetaminophen level exceeds: 150 mcg/mL at 4 hours after ingestion ??75 mcg/mL at 8 hours after ingestion ??38 mcg/mL at 12 hours after ingestion ??19 mcg/mL at 16 hours after ingestion Consult toxicology or poison control ([phone]) for unknown ingestion time. Current interpretive data was last revised 2023. Blood 09/28/2023 9:02 PM MEAL GRINDER TENDER 09/28/2023 9:07 PM MEAL GRINDER TENDER Mansoor Valdes MD LAB BLOOD ORDERABLES Final Result Performing Organization Address [facility] Co de Phone Number SAMAN [address] [address] * Troponin T high-sensitivity 2-hour (09/28/2023 9:02 PM MEAL GRINDER TENDER) Trop T hs 10 <=22 ng/L [facility] Comment: Interpretive Data For further hscTnT resources including the diagnostic algorithm and an aid in interpretation, copy and paste this link: https://nrl.testcatalog.org/show/hsTrop Current Interpretive Data last revised 2020. Trop T hs delta 2 ng/L [facility] Trop T hs interp Insignificant [facility] Blood 09/28/2023 9:02 PM MEAL GRINDER TENDER 09/28/2023 9:07 PM MEAL GRINDER TENDER Yuko Naik DO LAB BLOOD ORDERABLES Final Resu lt Performing Organization Address [facility] Co de Phone Number SAMAN [address] [address] * (ABNORMAL) Urinalysis reflex to microscopic (09/28/2023 7:30 PM MEAL GRINDER TENDER) Color, ur Kailyn Yellow [facility] Clarity, ur Cloudy(A) Clear [facility] Specific gravity, ur 1.020 1.003 - 1.030 [facility] pH, urine 5.0 [facility] Comment: Interpretive Data ? Urine pH is affected by diet, medications, systemic acid-base disturbances, and renal tubular function. ??pH may affect urinary stone formation. ??For example, urine pH below 6.0 may help reduce the tendency for calcium phosphate stones and pH greater than 6.0 may reduce the tendency for uric acid stone formation. Source: [facility] [employer] Current Interpretive Data was last revised on 2017 Protein, ur ql Negative Negative [facility] Glucose, ur ql Negative Negative [facility] Ketones, ur 1+(A) Negative [facility] Bilirubin, ur Negative Negative [facility] Blood, ur Negative Negative [facility] Urobilinogen, ur 2.0(A) <2.0 mg/dL [facility] Nitrite, ur Negative Negative [facility] Leukocyte esterase, ur Negative Negative [facility] UA reflex comment Reflex conditions for microscopic UA not met. [facility] Urine 09/28/2023 7:30 PM MEAL GRINDER TENDER 09/28/2023 7:33 PM MEAL GRINDER TENDER Yuko Naik DO LAB URINE ORDERABLES Final Resu lt [facility] [address] [facility] Department of Laboratories [place], [place] [id number] * Drugs of Abuse Screen, Urine without Confirmation (09/28/2023 7:29 PM MEAL GRINDER TENDER) Amphetamine, ur Not Detected CutOff 500ng/mL [facility] Comment: Interpretive Data - Amphetamines: ??Samples containing greater than 500 ng/mL d-methamphetamine ??or other cross-reacting amphetamine compounds are reported as positive. ??Amphetamine immunoassays are subject to significant false positive rates due to cross-reactivity of non-amphetamine drugs. Confirmatory testing required for definitive results. Current Interpretive Data was last reviewed 2023. Barbiturates, ur Not Detected CutOff 200ng/mL [facility] Comment: Interpretive Data - Barbiturates: ??Samples containing greater than 200 ng/mL secobarbital or other cross-reacting barbiturate compounds are reported as positive. ??False positive and false negative results are possible. Confirmatory testing required for definitive results. Current Interpretive Data was last reviewed 2023. Benzodiazepines, ur Not Detected CutOff 100ng/mL [facility] Comment: Interpretive Data - Benzodiazepines: ??Samples containing greater than 100 ng/mL nordiazepam or other cross-reacting compounds are reported as positive. False positive and false negative results are possible. Confirmatory testing required for definitive results. Current Interpretive Data was last reviewed 2023. Cannabinoids, ur Not Detected CutOff 50 ng/mL [facility] Comment: Interpretive Data - Cannabinoids: ??Samples containing greater than 50 ng/mL delta-9 THC -COOH or other cross-reacting compounds are reported as positive. ??False positive and false negative results are possible. ??Confirmatory testing required for definitive results. Current Interpretive Data was last reviewed 2023. Cocaine, ur Not Detected CutOff 150ng/mL [facility] Comment: Interpretive Data - Cocaine: ??Samples containing greater than 150 ng/mL benzoylecgonine or other cross-reacting compounds are reported as positive. False positive and false negative results are possible. Confirmatory testing required for definitive results. Current Interpretive Data was last reviewed 2023. Fentanyl, Ur Not Detected Cutoff 1 ng/mL [facility] Comment: Interpretive Data - Fentanyl: ??Samples containing greater than 1 ng/mL fentanyl or other cross-reacting fentanyl compounds are reported as positive. ??False positive and false negative results are possible. Confirmatory testing required for definitive results. Current Interpretive Data was last reviewed 2023. Methadone, ur Not Detected CutOff 300ng/mL [facility] Comment: Interpretive Data - Methadone: ??Samples containing greater than 300 ng/mL d,l-methadone or other cross-reacting compounds are reported as positive. ??False positive and false negative results are possible. Confirmatory testing required for definitive results. Current Interpretive Data was last reviewed 2023. Opiates, ur Not Detected CutOff 300ng/mL [facility] Comment: Interpretive Data - Opiates: ??Samples containing greater than 300 ng/mL morphine or other cross-reacting compounds are reported as positive. ??False positive and false negative results are possible. Confirmatory testing required for definitive results. Current Interpretive Data was last reviewed 2023. Oxycodone, ur Not Detected CutOff 100ng/mL [facility] Comment: Interpretive Data - Oxycodone: ??Samples containing greater than 100 ng/mL oxycodone or other cross-reacting compounds are reported as ??positive. ??False positive and false negative results are possible. Confirmatory testing required for definitive results. Current Interpretive Data was last reviewed 2023. Phencyclidine, ur Not Detected CutOff 25 ng/mL [facility] Comment: Interpretive Data - Phencyclidine: ??Samples containing greater than 25 ng/mL phencyclidine or other cross-reacting compounds are reported as positive. ??False positive and false negative results are possible. Confirmatory testing required for definitive results. Current Interpretive Data was last reviewed 2023. Urine Creatinine 258 mg/dL [facility] Comment: Interpretive Data Urine Creatinine: < 10 mg/dL is extremely dilute = or > 10 but < 20 mg/dL is dilute = or > 20 mg/dL is normal Current Interpretive Data was last revised on 2018. Urine 09/28/2023 7:29 PM MEAL GRINDER TENDER 09/28/2023 7:33 PM MEAL GRINDER TENDER Narrative [facility] - 09/28/2023 8:06 PM MEAL GRINDER TENDER Drug of Abuse screening is performed by immunoassay for medical purposes only. ??This is not to be used for Pain Management purposes. us Yuko Naik DO LAB URINE ORDERABLES Final Resu lt [facility] [address] [facility] Department [place] [address] * eGFR (09/28/2023 6:43 PM MEAL GRINDER TENDER) eGFR 120 mL/min/1. 73 m2 [facility] Comment: Interpretive Data Reference Interval Normal ?>/= [...] interpretive data was last reviewed 2021. Blood 09/28/2023 6:43 PM MEAL GRINDER TENDER 09/28/2023 6:47 PM MEAL GRINDER TENDER Yuko Naik DO LAB BLOOD ORDERABLES Final Resu lt [facility] [address] [facility] Department [place] [address] * (ABNORMAL) Differential, auto (09/28/2023 6:43 PM MEAL GRINDER TENDER) Neutrophil abs 8.3(H) 1.7 - 6.5 K/cumm [facility] Imm gran abs 0.0 0.0 - 0.1 K/cumm [facility] Lymphocyte abs 1.9 0.8 - 3.3 K/cumm [facility] Monocyte abs 1.3(H) 0.2 - 0.8 K/cumm [facility] Eosinophil abs 0.0 0.0 - 0.5 K/cumm [facility] Basophil abs 0.1 0.0 - 0.1 K/cumm [facility] Neutrophil pct 71.6 % [facility] Comment: Interpretive Data Percent cell count reference ranges are not reported, since discordance with absolute values may lead to misinterpretation of CBC data. Current Interpretive Data was last revised on 2018. Imm gran pct 0.3 % [facility] Comment: Interpretive Data Percent cell count reference ranges are not reported, since discordance with absolute values may lead to misinterpretation of CBC data. Current Interpretive Data was last revised on 2018. Lymphocyte pct 15.9 % [facility] Comment: Interpretive Data Percent cell count reference ranges are not reported, since discordance with absolute values may lead to misinterpretation of CBC data. Current Interpretive Data was last revised on 2018. Monocyte pct 11.3 % [facility] Comment: Interpretive Data Percent cell count reference ranges are not reported, since discordance with absolute values may lead to misinterpretation of CBC data. Current Interpretive Data was last revised on 2018. Eosinophil pct 0.3 % [facility] Comment: Interpretive Data Percent cell count reference ranges are not reported, since discordance with absolute values may lead to misinterpretation of CBC data. Current Interpretive Data was last revised on 2018. Basophil pct 0.6 % [facility] Comment: Interpretive Data Percent cell count reference ranges are not reported, since discordance with absolute values may lead to misinterpretation of CBC data. Current Interpretive Data was last revised on 2018. Blood 09/28/2023 6:43 PM MEAL GRINDER TENDER 09/28/2023 6:47 PM MEAL GRINDER TENDER Yuko Naik LAB BLOOD ORDERABLES Final Resu lt Performing Organization Address [facility] de Phone Number [address] [place] [address] * (ABNORMAL) Ethanol (09/28/2023 6:43 PM MEAL GRINDER TENDER) Ethanol 94(H) <=10 mg/dL [facility] Comment: Interpretive Data Legal limit of intoxication > or = 80 mg/dL Levels > or = 400 mg/dL are potentially TOXIC. Current interpretive data was last revised on 2018. Blood 09/28/2023 6:43 PM MEAL GRINDER TENDER 09/28/2023 6:47 PM MEAL GRINDER TENDER Yuko Naik LAB BLOOD ORDERABLES Final Resu lt Performing Organization Address [facility] Co de Phone Number [address] [email or web address] [address] * Troponin T high-sensitivity series (baseline, 2hr, 4hr, 6hr) (09/28/2023 6:43 PM MEAL GRINDER TENDER) Trop T hs 8 <=22 ng/L [facility] Comment: Interpretive Data For further hscTnT resources including the diagnostic algorithm and an aid in interpretation, copy and paste this link: [email or web address] Current Interpretive Data last revised 2020. Blood 09/28/2023 6:43 PM MEAL GRINDER TENDER 09/28/2023 6:47 PM MEAL GRINDER TENDER Yuko Naik DO LAB BLOOD ORDERABLES Final Resu lt [facility] [address] [facility] Department [place] [address] * (ABNORMAL) Comprehensive metabolic panel (09/28/2023 6:43 PM MEAL GRINDER TENDER) Sodium 133(L) 135 - 145 mmol/L [facility] Potassium, pl 3.5 3.3 - 4.9 mmol/L [facility] Chloride 91(L) 97 - 110 mmol/L [facility] CO2 20(L) 22 - 32 mmol/L [facility] Anion gap 22(H) 2 - 15 mmol/L [facility] BUN 6 6 - 25 mg/dL [facility] Creatinine 0.70(L) 0.80 - 1.30 mg/dL [facility] Glucose 93 70 - 199 mg/dL [facility] Comment: Interpretive Data Fasting glucose >/= 126 [...] classification and Diagnosis of Diabetes Diabetes Care 2021; 46: [id number]. Current interpretive data was last revised 2022. Calcium 8.9 8.5 - 10.3 mg/dL [facility] Bilirubin, total 1.3(H) 0.1 - 1.2 mg/dL [facility] Protein, pl 8.2 6.5 - 8.5 g/dL [facility] Albumin 4.2 3.5 - 5.0 g/dL [facility] Alk phos 96 40 - 130 Units/L [facility] ALT 71(H) 7 - 55 Units/L [facility] AST 98(H) 10 - 50 Units/L [facility] Blood 09/28/2023 6:43 PM MEAL GRINDER TENDER 09/28/2023 6:47 PM MEAL GRINDER TENDER Yuko Naik DO LAB BLOOD ORDERABLES [facility] [address] [facility] Department [place] [address] * (ABNORMAL) CBC with auto differential (09/28/2023 6:43 PM MEAL GRINDER TENDER) Pathologist [facility] WBC 11.6(H) 3.8 - 9.9 K/cumm [facility] Hgb 15.5 13.0 - 17.5 g/dL [facility] Comment: Interpretive Data A reference range for this assay has not been established for patients with an unknown legal sex. Please refer to the laboratory test catalog for established sex-specific reference intervals. Current interpretive data was last revised on 2023. Hct 42.4 38.9 - 50.3 % [facility] Comment: Interpretive Data A reference range for this assay has not been established for patients with an unknown legal sex. Please refer to the laboratory test catalog for established sex-specific reference intervals. Current interpretive data was last revised on 2023. Plt 212 150 - 400 K/cumm [facility] MPV 9.4 9.1 - 12.3 fL [facility] RBC 4.83 4.30 - 5.80 M/cumm [facility] Comment: Interpretive Data A reference range for this assay has not been established for patients with an unknown legal sex. Please refer to the laboratory test catalog for established sex-specific reference intervals. Current interpretive data was last revised on 2023. MCV 87.8 81.3 - 96.4 fL [facility] MCH 32.1 27.1 - 33.3 pg [facility] MCHC 36.6(H) 32.3 - 35.7 g/dL [facility] RDW CV 12.5 11.1 - 14.9 % [facility] RDW SD 39.8 35.7 - 48.1 fL [facility] NRBC abs 0.00 0.00 - 0.01 K/cumm [facility] Blood (Blood, Venous) 09/28/2023 6:43 PM MEAL GRINDER TENDER 09/28/2023 6:47 PM MEAL GRINDER TENDER Yuko Naik DO LAB BLOOD ORDERABLES Final Resu lt [facility] [address] [facility] Department [place] [address] * ECG 12 lead (09/28/2023 6:34 PM MEAL GRINDER TENDER) Pathologist [facility] Ventricular Rate EKG/Min [address] [facility] Atrial Rate 128 BPM [facility] NV-Interval (MSEC) [address] [facility] QRS-Interval (MSEC) [address] [facility] QT-Interval (MSEC) 334 ms [facility] QTc 487 ms [facility] P [place] 57 degrees [facility] R [place] 7 degrees [facility] T [place] 54 degrees [facility] Diagnosis Poor data quality, interpretation may be adversely affected Possible ??Sinus tachycardia with occasional Premature ventricular complexes Otherwise normal ECG When compared with ECG of 08-NOV-2021 13:58 P.M. Non-specific change in ST segment in Inferior leads T wave inversion no longer evident in Inferior leads Rate has decreased Suggest repeat EKG Confirmed by JINNY ZEPEDA M.D. ([id number]) on 10/01/2023 7:40:47 PM [facility] 09/28/2023 6:34 PM MEAL GRINDER TENDER 10/01/2023 7:40 PM MEAL GRINDER TENDER Yuko Naik DO ECG ORDERABLES Final Result Performing Organization Address [facility]/ZIP Co de Phone Number [facility] documented in this encounter Visit Diagnoses Diagnosis Alcohol withdrawal syndrome with complication (HCC)- Primary Alcohol withdrawal syndrome with complication (HCC) Hyponatremia Hyposmolality and/or hyponatremia Hepatic cirrhosis (HCC) Cirrhosis of liver without mention of alcohol documented in this encounter Admitting Diagnoses Diagnosis Alcohol withdrawal syndrome with complication (HCC) documented in this encounter Administered Medications Inactive Administered Medications - up to 3 most recent administrations Medication Order MAR Action Action Date Dose Rate Site aspirin chewable tablet 324 mg 324 mg, oral, Once, On Wed09/28/23 at 1837, For 1 dose, Indications: Chest PainIndications:Chest Pain Given 09/28/2023 6:47 PM MEAL GRINDER TENDER 324 mg chlordiazePOXIDE (LIBRIUM) capsule 100 mg 100 mg, oral, Once, On Wed09/28/23 at 2013, For 1 dose Given 09/28/2023 8:15 PM MEAL GRINDER TENDER 100 mg cloNIDine (CATAPRES-TTS) 0.2 mg/24 hr patch weekly 1 patch 1 patch, transdermal, Administer over 7 Days, Weekly, First dose on Wed09/28/23 at 2315, Apply overlay over the clonidine patch. Write only on the overlay. Medication Applied 10/05/2023 8:35 AM MEAL GRINDER TENDER 1 patch Left Shoulder Medication Applied 09/29/2023 12:04 AM MEAL GRINDER TENDER 1 patch Left Arm folic acid (FOLVITE) tablet 1 mg 1 mg, oral, Daily, First dose on Wed09/29/23 at 0900, For 5 days, Each tablet contains 1 mg of folic acid (1.67 mg DFE)., Indications: Folate DeficiencyIndications:Folate Deficiency Given 10/03/2023 7:52 AM MEAL GRINDER TENDER 1 mg Given 10/02/2023 8:03 AM MEAL GRINDER TENDER 1 mg Given 10/01/2023 8:25 AM MEAL GRINDER TENDER 1 mg influenza quadrivalent [id number] (FLULAVAL,FLUARIX,FLUZONE) 60 mcg (15 mcg x 4)/0.5 mL vaccine (STANDARD age 6 months and up) 0.5 mL 0.5 mL, intramuscular, During hospitalization, immunization, Starting on Wed09/29/23 at 0308, For 1 dose, Indications: influenza vaccinationIndications:influenza vaccination LORazepam (ATIVAN) injection 1 mg 1 mg, intravenous, Once, On Wed09/28/23 at 2221, For 1 dose, For IV administration, draw up ordered admin dose/volume, then dilute with equal volume of 0.9% sodium chloride and administer total volume to patient. Do not exceed a rate of 2 mg/minute. Given 09/28/2023 10:24 PM MEAL GRINDER TENDER 1 mg LORazepam (ATIVAN) injection 1 mg 1 mg, intravenous, Every 1 hour PRN, other, Score between 13 and 18 on Alcohol Withdrawl Assessment, Starting on Wed09/29/23 at 0235, For 6 days, HOLD for any status indicating over sedation including the following: drifts off to sleep during conversation, minimal or no response to verbal or physical stimulation, or respiratory rate of less than 10 breaths per minute. For IV administration, draw up ordered admin dose/volume, then dilute with equal volume of 0.9% sodium chloride and administer total volume to patient. Do not exceed a rate of 2 mg/minute., Indications: Alcohol Withdrawal Assessment Scale scoreIndications:Alcohol Withdrawal Assessment Scale score Given 09/29/2023 3:07 PM MEAL GRINDER TENDER 1 mg Given 09/29/2023 9:27 AM MEAL GRINDER TENDER 1 mg Given 09/29/2023 3:37 AM MEAL GRINDER TENDER 1 mg LORazepam (ATIVAN) injection 2 mg 2 mg, intravenous, Once, On Wed09/29/23 at 0140, For 1 dose, For IV administration, draw up ordered admin dose/volume, then dilute with equal volume of 0.9% sodium chloride and administer total volume to patient. Do not exceed a rate of 2 mg/minute. Given 09/29/2023 1:56 AM MEAL GRINDER TENDER 2 mg LORazepam (ATIVAN) tablet 1 mg 1 mg, oral, Every 4 hours PRN, other, Score between 3 and 5 on Alcohol Withdrawl Assessment, Starting on Wed09/29/23 at 0235, For 6 days, HOLD for any status indicating over sedation including the following: drifts off to sleep during conversation, minimal or no response to verbal or physical stimulation, or respiratory rate less than 10 breaths per minute., Indications: Alcohol Withdrawal Assessment Scale scoreIndications:Alcohol Withdrawal Assessment Scale score Given 10/03/2023 12:22 PM MEAL GRINDER TENDER 1 mg LORazepam (ATIVAN) tablet 1 mg 1 mg, oral, Every 2 hours PRN, other, Score between 6 and 12 on Alcohol Withdrawl Assessment, Starting on Wed09/29/23 at 0235, For 6 days, HOLD for any status indicating over sedation including the following: drifts off to sleep during conversation, minimal or no response to verbal or physical stimulation, or respiratory rate less than 10 breaths per minute., Indications: Alcohol Withdrawal Assessment Scale scoreIndications:Alcohol Withdrawal Assessment Scale score Given 10/02/2023 5:52 PM MEAL GRINDER TENDER 1 mg Given 10/02/2023 3:23 PM MEAL GRINDER TENDER 1 mg Given 10/02/2023 1:01 PM MEAL GRINDER TENDER 1 mg naloxone (NARCAN) 0.4 mg/mL injection 0.4 mg 0.4 mg, intravenous, Every 10 min PRN, opioid reversal, respiratory depression, Starting on Wed09/29/23 at 0236, For IV, administer over 30 seconds. nicotine (NICODERM CQ) 21 mg patch 24 hour 1 patch 1 patch, transdermal, Administer over 24 Hours, Daily PRN, smoking cessation, Starting on Wed09/29/23 at 0235, Apply a new patch every 24 hours to a clean, dry, hairless site on the upper arm or hip. Rotate site., Indications: Nicotine DependenceIndications:Renan otine Dependence Medication Applied 10/04/2023 3:53 PM MEAL GRINDER TENDER 1 patch Right Shoulder Medication Applied 10/03/2023 4:24 PM MEAL GRINDER TENDER 1 patch Left Arm Medication Applied 10/02/2023 4:44 PM MEAL GRINDER TENDER 1 patch Right Shoulder ondansetron (ZOFRAN) injection 4 mg 4 mg, intravenous, Administer over 2 Minutes, Once, On Wed09/28/23 at 1901, For 1 dose Given 09/28/2023 7:05 PM MEAL GRINDER TENDER 4 m g ondansetron (ZOFRAN) injection 4 mg 4 mg, intravenous, Administer over 2 Minutes, Once, On Wed09/28/23 at 2219, For 1 dose Given 09/28/2023 10:24 PM MEAL GRINDER TENDER 4 mg ondansetron (ZOFRAN) injection 4 mg 4 mg, intravenous, Administer over 2 Minutes, Every 6 hours PRN, nausea, vomiting, Starting on Oly 09/30/23 at 1225 Given 10/04/2023 8:07 AM MEAL GRINDER TENDER 4 mg Given 09/30/2023 12:56 PM MEAL GRINDER TENDER 4 mg ondansetron ODT (ZOFRAN-ODT) disintegrating tablet 4 mg 4 mg, oral, Every 6 hours PRN, nausea, vomiting, Starting on Oly 09/30/23 at 1225 oxyCODONE (ROXICODONE) tablet 5 mg 5 mg, oral, Every 4 hours PRN, moderate pain, Starting on Wed09/29/23 at 0236, Indications: PainIndications:Pain Given 10/01/2023 9:28 PM MEAL GRINDER TENDER 5 mg Given 10/01/2023 1:43 PM MEAL GRINDER TENDER 5 mg Given 10/01/2023 8:25 AM MEAL GRINDER TENDER 5 mg oxyCODONE (ROXICODONE) tablet 5 mg 5 mg, oral, Every 6 hours PRN, moderate pain, Starting on 10/02/23 at 1230, Indications: PainIndications:Pain Given 10/05/2023 12:46 PM MEAL GRINDER TENDER 5 mg Given 10/05/2023 7:48 AM MEAL GRINDER TENDER 5 mg Given 10/04/2023 5:53 PM MEAL GRINDER TENDER [address] (PROTONIX) extended release tablet 40 mg 40 mg, oral, 2 times daily, First dose on Oly 09/30/23 at 0900, Do not crush, chew, cut, dissolve, open or otherwise manipulate tablet/capsule., Indications: Treatment of Non-Bleeding Gastric DisorderIndications:Treatment of Non-Bleeding Gastric Disorder Given 10/05/2023 8:35 AM MEAL GRINDER TENDER 40 mg Given 10/04/2023 10:51 PM MEAL GRINDER TENDER 40 mg Given 10/04/2023 8:07 AM MEAL GRINDER TENDER 40 mg polyethylene glycol (MIRALAX) packet 17 g 17 g, oral, Daily PRN, constipation, Starting on Wed09/29/23 at 0235, Indications: constipationIndications:constipation Given 10/05/2023 9:55 AM MEAL GRINDER TENDER 17 g propranoloL (INDERAL) tablet 10 mg 10 mg, oral, 2 times daily, First dose (after last modification) on Wed09/29/23 at 1045 Given 10/05/2023 8:35 AM MEAL GRINDER TENDER 10 mg Given 10/04/2023 10:51 PM MEAL GRINDER TENDER 10 mg Given 10/04/2023 8:06 AM MEAL GRINDER TENDER 10 mg QUEtiapine (SEROquel) tablet 12.5 mg 12.5 mg, oral, 3 times daily, First dose on Wed09/29/23 at 1600 Given 10/05/2023 8:34 AM MEAL GRINDER TENDER 12.5 mg Given 10/04/2023 10:51 PM MEAL GRINDER TENDER 12.5 mg Given 10/04/2023 3:52 PM MEAL GRINDER TENDER 12.5 mg ramelteon (ROZEREM) tablet 8 mg 8 mg, oral, Nightly PRN, sleep, Starting on Wed09/29/23 at 0235, Indications: Sleep-Onset InsomniaIndications:Sleep-Onset Insomnia Given 10/03/2023 9:13 PM MEAL GRINDER TENDER 8 m g rifAXIMin (XIFAXAN) tablet 550 mg 550 mg, oral, 2 times daily, First dose on Wed09/29/23 at 1100, Indications: Hepatic EncephalopathyIndications:Hepatic Encephalopathy Given 10/05/2023 8:35 AM MEAL GRINDER TENDER 550 mg Given 10/04/2023 10:51 PM MEAL GRINDER TENDER 550 mg Given 10/04/2023 8:06 AM MEAL GRINDER TENDER 550 mg sertraline (ZOLOFT) tablet 50 mg 50 mg, oral, Every morning, First dose on Wed09/29/23 at 1245 Given 10/05/2023 8:35 AM MEAL GRINDER TENDER 50 mg Given 10/04/2023 8:07 AM MEAL GRINDER TENDER 50 mg Given 10/03/2023 7:52 AM MEAL GRINDER TENDER 50 mg simethicone (MYLICON) chewable tablet 160 mg 160 mg, oral, 2 times daily PRN, flatulence, Starting on Wed10/01/23 at 1553 Given 10/03/2023 4:24 PM MEAL GRINDER TENDER 160 mg Given 10/02/2023 1:01 PM MEAL GRINDER TENDER 160 mg sodium chloride 0.9% bolus 1,000 mL 1,000 mL, intravenous, at 1,000 mL/hr, Administer over 1 Hours, Once, On Wed09/28/23 at 2012, For 1 dose New 09/28/2023 8:16 PM MEAL GRINDER TENDER 1,000 mL 1000 mL/hr sodium chloride 0.9% bolus 1,000 mL 1,000 mL, intravenous, Once, On Wed09/28/23 at 2222, For 1 dose New Bag 09/28/2023 10:25 PM MEAL GRINDER TENDER 1,000 mL sodium chloride 0.9% infusion 100 mL/hr, intravenous, Continuous, Starting on Wed09/29/23 at 0236, For 12 hours New Bag 09/29/2023 2:58 PM MEAL GRINDER TENDER 100 mL/hr 100 mL/hr New Bag 09/29/2023 3:36 AM MEAL GRINDER TENDER 100 mL/hr 100 mL/hr sodium chloride 0.9% infusion 75 mL/hr, intravenous, Continuous, Starting on Wed09/30/23 at 1300 New Bag 10/04/2023 12:54 PM MEAL GRINDER TENDER 75 mL/hr 75 mL/hr New Bag 10/04/2023 12:00 AM MEAL GRINDER TENDER 75 mL/hr 75 mL/hr New Bag 10/03/2023 8:58 AM MEAL GRINDER TENDER 75 mL/hr 75 mL/hr sucralfate (CARAFATE) 100 mg/mL oral suspension 1 g 1 g, oral, 3 times daily with meals, First dose on Wed09/29/23 at 1200 Given 10/05/2023 8:36 AM MEAL GRINDER TENDER 1 g Given 10/04/2023 5:53 PM MEAL GRINDER TENDER 1 g Given 10/04/2023 11:46 AM MEAL GRINDER TENDER 1 g thiamine (VITAMIN B-1) 100 mg, folic acid (FOLVITE) 1 mg in sodium chloride 0.9% 100 mL IVPB intravenous, at 202.4 mL/hr, Administer over 30 Minutes, Once, On Wed09/28/23 at 2011, For 1 dose New Bag 09/28/2023 9:05 PM MEAL GRINDER TENDER 202.4 mL/hr thiamine (VITAMIN B-1) tablet 100 mg 100 mg, oral, Daily, First dose on Wed09/29/23 at 0900, For 5 days, Indications: Thiamine DeficiencyIndications:Thiamine Deficiency Given 10/03/2023 7:52 AM MEAL GRINDER TENDER 100 mg Given 10/02/2023 8:03 AM MEAL GRINDER TENDER 100 mg Given 10/01/2023 8:25 AM MEAL GRINDER TENDER 100 mg documented in this encounter Discontinued Medications Medication Sig Discontinue Reason Start Date End Da te acidophilus-pectin, citrus 100 million cell-10 mg capsule Take 1 capsule by mouth 2 (two) times a day 09/29/2023 buPROPion (WELLBUTRIN) 75 mg tablet Take 1 tablet (75 mg total) by mouth 2 (two) times a day 07/20/2023 09/29/2023 citalopram (CeleXA) 10 mg tablet 08/04/2022 09/29/2023 mirtazapine (REMERON) 7.5 mg tablet 08/11/2022 09/29/[address] (PROTONIX) 40 mg EC tablet 08/21/2022 09/29/2023 sucralfate (CARAFATE) 1 gram tablet TAKE 1 TABLET BY MOUTH BEFORE MEALS AND AT BEDTIME 05/20/2022 09/29/2023 documented as of this encounter Historical Medications * This list may reflect changes made after this encounter. sertraline (ZOLOFT) 50 mg tablet Take 1 tablet (50 mg total) by mouth every morning sucralfate (CARAFATE) suspension 1 gram/10 mL Take 10 mL (1 g total) by mouth 3 (three) times a day traZODone (DESYREL) 50 mg tablet Take 1 tablet (50 mg total) by mouth nightly 09/17/2023 QUEtiapine (SEROquel) 25 mg tablet Take 0.5 tablets (12.5 mg total) by mouth 3 (three) times a day 06/09/2023 hydrOXYzine (ATARAX) 25 mg tablet Take 1 tablet (25 mg total) by mouth 3 (three) times a day 06/07/2023 acidophilus-pecti n, citrus 100 million cell-10 mg capsule Take 1 capsule by mouth 2 (two) times a day 09/29/2023 buPROPion (WELLBUTRIN) 75 mg tablet Take 1 tablet (75 mg total) by mouth 2 (two) times a day 07/20/2023 09/29/2023 added in this encounter Active and Recently Administered Medications Times are shown in MEAL GRINDER TENDER. Scheduled Medication Order 10/03/2023 10/04/2023 10/05/2023 cloNIDine (CATAPRES-TTS) 0.2 mg/24 hr patch weekly 1 patch 1 patch, transdermal, Administer over 7 Days, Weekly, First dose on Wed09/28/23 at 2315, Apply overlay over the clonidine patch. Write only on the overlay. 0834 (Medication Removed - Provider: Maya Lou RN)0835 (Medication Applied - Provider: Maya Lou RN)1306 (Due: Medication Removed - Provider: Automatic Discharge Provider - Comment: Time automatically adjusted from order being discontinued) folic acid (FOLVITE) tablet 1 mg (COMPLETED) 1 mg, oral, Daily, First dose on Wed09/29/23 at 0900, For 5 days, Each tablet contains 1 mg of folic acid (1.67 mg DFE)., Indications: Folate Deficiency 0752 (Given - Provider: Sharla Castellon RN) pantoprazole DR (PROTONIX) extended release tablet 40 mg 40 mg, oral, 2 times daily, First dose on Wed09/30/23 at 0900, Do not crush, chew, cut, dissolve, open or otherwise manipulate tablet/capsule., Indications: Treatment of Non-Bleeding Gastric Disorder 0752 (Given - Provider: Sharla Castellon RN)2112 (Given - Provider: Mady Booth, ALFREDO) 08 (Given - Provider: Maya Lou RN)225 (Given - Provider: Eliz Lambert RN) 0835 (Given - Provider: Maya Lou RN) propranoloL (INDERAL) tablet 10 mg 10 mg, oral, 2 times daily, First dose (after last modification) on Wed09/29/23 at 1045 0752 (Given - Provider: Sharla Castellon RN)2112 (Given - Provider: Mady Booth RN) 08 (Given - Provider: Maya Lou, ALFREDO)2250 (Given - Provider: Eliz Lambert RN) 0835 (Given - Provider: Maya Lou RN) QUEtiapine (SEROquel) tablet 12.5 mg 12.5 mg, oral, 3 times daily, First dose on Wed09/29/23 at 1600 0752 (Given - Provider: Sharla Castellon RN)1548 (Given - Provider: Sharla Castellon RN)2112 (Given - Provider: Mady Booth RN) 08 (Given - Provider: Maya Lou RN)1552 (Given - Provider: Maya Lou RN)2250 (Given - Provider: Eliz Lambert RN) 0834 (Given - Provider: Maya Lou RN) rifAXIMin (XIFAXAN) tablet 550 mg 550 mg, oral, 2 times daily, First dose on Wed09/29/23 at 1100, Indications: Hepatic Encephalopathy 0752 (Given - Provider: Sharla Castellon RN)2112 (Given - Provider: Mady Booth RN) 08 (Given - Provider: Maya Lou RN)2250 (Given - Provider: Eliz Lambert RN) 0835 (Given - Provider: Maya Lou RN) sertraline (ZOLOFT) tablet 50 mg 50 mg, oral, Every morning, First dose on Wed09/29/23 at 1245 0752 (Given - Provider: Sharla Castellon RN) 0807 (Given - Provider: Maya Lou RN) 0835 (Given - Provider: Maya Lou RN) sucralfate (CARAFATE) 100 mg/mL oral suspension 1 g 1 g, oral, 3 times daily with meals, First dose on Wed09/29/23 at 1200 0752 (Given - Provider: Sharla Castellon RN)1221 (Given - Provider: Sharla Castellon RN)1634 (Given - Provider: Sharla Castellon RN) 0806 (Given - Provider: Maya Lou RN)1146 (Given - Provider: Maya Lou RN)1753 (Given - Provider: Maya Lou RN) 0836 (Given - Provider: Maya Lou RN)1135 (Not Given - Provider: Maya Lou RN - Reason: Patient/family refused) thiamine (VITAMIN B-1) tablet 100 mg (COMPLETED) 100 mg, oral, Daily, First dose on Wed09/29/23 at 0900, For 5 days, Indications: Thiamine Deficiency 0752 (Given - Provider: Sharla Castellon RN) Continuous Medication Order 10/03/2023 10/04/2023 10/05/2023 sodium chloride 0.9% infusion (CANCELED) 75 mL/hr, intravenous, Continuous, Starting on Wed09/30/23 at 1300 0858 (New Bag - Provider: Sharla Castellon RN) 0000 (New Bag - Provider: Mady Booth RN)1254 (New Bag - Provider: Maya Lou RN)1603 (Stopped - Provider: Maya Lou RN) PRN Medication Order 10/03/2023 10/04/2023 10/05/2023 influenza quadrivalent [id number] (FLULAVAL,FLUARIX,FLUZON E) 60 mcg (15 mcg x 4)/0.5 mL vaccine (STANDARD age 6 months and up) 0.5 mL 0.5 mL, intramuscular, During hospitalization, immunization, Starting on Wed09/29/23 at 0308, For 1 dose, Indications: influenza vaccination LORazepam (ATIVAN) injection 1 mg(Linked Group 1) 1 mg, intravenous, Every 1 hour PRN, other, Score between 13 and 18 on Alcohol Withdrawl Assessment, Starting on Wed09/29/23 at 0235, For 6 days, HOLD for any status indicating over sedation including the following: drifts off to sleep during conversation, minimal or no response to verbal or physical stimulation, or respiratory rate of less than 10 breaths per minute. For IV administration, draw up ordered admin dose/volume, then dilute with equal volume of 0.9% sodium chloride and administer total volume to patient. Do not exceed a rate of 2 mg/minute., Indications: Alcohol Withdrawal Assessment Scale score 1222 (See Alternative - Provider: Sharla Castellon RN) LORazepam (ATIVAN) injection 1 mg(Linked Group 1) 1 mg, intramuscular, Every 1 hour PRN, other, Score between 13 and 18 on Alcohol Withdrawl Assessment, Starting on Wed09/29/23 at 0235, For 6 days, Administer IM if unable to provide IV Push. HOLD for any status indicating over sedation including the following: drifts off to sleep during conversation, minimal or no response to verbal or physical stimulation, or respiratory rate less than10 breaths per minute. For IV administration, draw up ordered admin dose/volume, then dilute with equal volume of 0.9% sodium chloride and administer total volume to patient. Do not exceed a rate of 2 mg/minute., Indications: Alcohol Withdrawal Assessment Scale score 1222 (See Alternative - Provider: Sharla Castellon RN) LORazepam (ATIVAN) injection 2 mg(Linked Group 1) 2 mg, intravenous, Every 1 hour PRN, other, Score greater than 18 on Alcohol Withdrawl Assessmen, Starting on Wed09/29/23 at 0235, For 6 days, HOLD for any status indicating over sedation including the following: drifts off to sleep during conversation, minimal or no response to verbal or physical stimulation, or respiratory rate less than 10 breaths per minute. For IV administration, draw up ordered admin dose/volume, then dilute with equal volume of 0.9% sodium chloride and administer total volume to patient. Do not exceed a rate of 2 mg/minute., Indications: Alcohol Withdrawal Assessment Scale score 1222 (See Alternative - Provider: Sharla Castellon RN) LORazepam (ATIVAN) injection 2 mg(Linked Group 1) 2 mg, intramuscular, Every 1 hour PRN, other, Score greater than 18 on Alcohol Withdrawl Assessment, Starting on Wed09/29/23 at 0235, For 6 days, Administer IM if unable to provide IV Push.HOLD for any status indicating over sedation including the following: drifts off to sleep during conversation, minimal or no response to verbal or physical stimulation, or respiratory rate less than 10 breaths per minute. For IV administration, draw up ordered admin dose/volume, then dilute with equal volume of 0.9% sodium chloride and administer total volume to patient. Do not exceed a rate of 2 mg/minute., Indications: Alcohol Withdrawal Assessment Scale score 1222 (See Alternative - Provider: Sharla Castellon RN) LORazepam (ATIVAN) tablet 1 mg(Linked Group 1) 1 mg, oral, Every 4 hours PRN, other, Score between 3 and 5 on Alcohol Withdrawl Assessment, Starting on Wed09/29/23 at 0235, For 6 days, HOLD for any status indicating over sedation including the following: drifts off to sleep during conversation, minimal or no response to verbal or physical stimulation, or respiratory rate less than 10 breaths per minute., Indications: Alcohol Withdrawal Assessment Scale score 1222 (Given - Provider: Sharla Castellon RN) LORazepam (ATIVAN) tablet 1 mg(Linked Group 1) 1 mg, oral, Every 2 hours PRN, other, Score between 6 and 12 on Alcohol Withdrawl Assessment, Starting on Wed09/29/23 at 0235, For 6 days, HOLD for any status indicating over sedation including the following: drifts off to sleep during conversation, minimal or no response to verbal or physical stimulation, or respiratory rate less than 10 breaths per minute., Indications: Alcohol Withdrawal Assessment Scale score 1222 (See Alternative - Provider: Sharla Castellon RN) naloxone (NARCAN) 0.4 mg/mL injection 0.4 mg 0.4 mg, intravenous, Every 10 min PRN, opioid reversal, respiratory depression, Starting on Wed09/29/23 at 0236, For IV, administer over 30 seconds. nicotine (NICODERM CQ) 21 mg patch 24 hour 1 patch 1 patch, transdermal, Administer over 24 Hours, Daily PRN, smoking cessation, Starting on Wed09/29/23 at 0235, Apply a new patch every 24 hours to a clean, dry, hairless site on the upper arm or hip. Rotate site., Indications: Nicotine Dependence 1520 (Medication Removed - Provider: Sharla Castellon RN)1624 (Medication Applied - Provider: Sharla Castellon RN) 1549 (Medication Removed - Provider: Maya Lou RN)1553 (Medication Applied - Provider: Maya Lou RN) 1306 (Due: Medication Removed - Provider: Automatic Discharge Provider - Comment: Time automatically adjusted from order being discontinued) ondansetron (ZOFRAN) injection 4 mg 4 mg, intravenous, Administer over 2 Minutes, Every 6 hours PRN, nausea, vomiting, Starting on Oly 09/30/23 at 1225 0807 (Given - Provider: Maya Lou RN) ondansetron ODT (ZOFRAN-ODT) disintegrating tablet 4 mg 4 mg, oral, Every 6 hours PRN, nausea, vomiting, Starting on Oly 09/30/23 at 1225 oxyCODONE (ROXICODONE) tablet 5 mg 5 mg, oral, Every 6 hours PRN, moderate pain, Starting on 10/02/23 at 1230, Indications: Pain 0809 (Given - Provider: Sharla Castellon RN)1624 (Given - Provider: Sharla Castellon RN) 0335 (Given - Provider: Mady Booth RN)1146 (Given - Provider: Maya Lou RN)1753 (Given - Provider: Maya Lou RN) 0748 (Given - Provider: Maya Lou RN)1246 (Given - Provider: Maya Lou RN) polyethylene glycol (MIRALAX) packet 17 g 17 g, oral, Daily PRN, constipation, Starting on Wed09/29/23 at 0235, Indications: constipation 0955 (Given - Provider: Maya Lou RN) ramelteon (ROZEREM) tablet 8 mg 8 mg, oral, Nightly PRN, sleep, Starting on Wed09/29/23 at 0235, Indications: Sleep-Onset Insomnia 2113 (Given - Provider: Mady Booth RN) simethicone (MYLICON) chewable tablet 160 mg 160 mg, oral, 2 times daily PRN, flatulence, Starting on Wed10/01/23 at 1553 1624 (Given - Provider: Sharla Castellon RN) Linked Groups Order Group 1: LORazepam (ATIVAN) tablet 1 mgJump to med 1 mg, oral, Every 4 hours PRN, other, Score between 3 and 5 on Alcohol Withdrawl Assessment, Starting on Wed09/29/23 at 0235, For 6 days, HOLD for any status indicating over sedation including the following: drifts off to sleep during conversation, minimal or no response to verbal or physical stimulation, or respiratory rate less than 10 breaths per minute., Indications: Alcohol Withdrawal Assessment Scale score Or LORazepam (ATIVAN) tablet 1 mgJump to med 1 mg, oral, Every 2 hours PRN, other, Score between 6 and 12 on Alcohol Withdrawl Assessment, Starting on Wed09/29/23 at 0235, For 6 days, HOLD for any status indicating over sedation including the following: drifts off to sleep during conversation, minimal or no response to verbal or physical stimulation, or respiratory rate less than 10 breaths per minute., Indications: Alcohol Withdrawal Assessment Scale score Or LORazepam (ATIVAN) injection 1 mgJump to med 1 mg, intravenous, Every 1 hour PRN, other, Score between 13 and 18 on Alcohol Withdrawl Assessment, Starting on Wed09/29/23 at 0235, For 6 days, HOLD for any status indicating over sedation including the following: drifts off to sleep during conversation, minimal or no response to verbal or physical stimulation, or respiratory rate of less than 10 breaths per minute. For IV administration, draw up ordered admin dose/volume, then dilute with equal volume of 0.9% sodium chloride and administer total volume to patient. Do not exceed a rate of 2 mg/minute., Indications: Alcohol Withdrawal Assessment Scale score Or LORazepam (ATIVAN) injection 1 mgJump to med 1 mg, intramuscular, Every 1 hour PRN, other, Score between 13 and 18 on Alcohol Withdrawl Assessment, Starting on Wed09/29/23 at 0235, For 6 days, Administer IM if unable to provide IV Push. HOLD for any status indicating over sedation including the following: drifts off to sleep during conversation, minimal or no response to verbal or physical stimulation, or respiratory rate less than10 breaths per minute. For IV administration, draw up ordered admin dose/volume, then dilute with equal volume of 0.9% sodium chloride and administer total volume to patient. Do not exceed a rate of 2 mg/minute., Indications: Alcohol Withdrawal Assessment Scale score Or LORazepam (ATIVAN) injection 2 mgJump to med 2 mg, intravenous, Every 1 hour PRN, other, Score greater than 18 on Alcohol Withdrawl Assessmen, Starting on Wed09/29/23 at 0235, For 6 days, HOLD for any status indicating over sedation including the following: drifts off to sleep during conversation, minimal or no response to verbal or physical stimulation, or respiratory rate less than 10 breaths per minute. For IV administration, draw up ordered admin dose/volume, then dilute with equal volume of 0.9% sodium chloride and administer total volume to patient. Do not exceed a rate of 2 mg/minute., Indications: Alcohol Withdrawal Assessment Scale score Or LORazepam (ATIVAN) injection 2 mgJump to med 2 mg, intramuscular, Every 1 hour PRN, other, Score greater than 18 on Alcohol Withdrawl Assessment, Starting on Wed09/29/23 at 0235, For 6 days, Administer IM if unable to provide IV Push.HOLD for any status indicating over sedation including the following: drifts off to sleep during conversation, minimal or no response to verbal or physical stimulation, or respiratory rate less than 10 breaths per minute. For IV administration, draw up ordered admin dose/volume, then dilute with equal volume of 0.9% sodium chloride and administer total volume to patient. Do not exceed a rate of 2 mg/minute., Indications: Alcohol Withdrawal Assessment Scale score documented in this encounter Orders Medications Ordered That Nikunj ht Not Have Been Administered Count Last Ordered Date First Ordered Date ondansetron ODT (ZOFRAN-ODT) disintegrating tablet 4 mg 1 09/30/2023 buPROPion (WELLBUTRIN) tablet 75 mg 1 09/29 influenza quadrivalent 2022- 2023 (FLULAVAL,FLUARIX,FLUZONE) 60 mcg (15 mcg x 4)/0.5 mL vaccine (STANDARD age 6 months and up) 0.5 mL 1 09/29/2023 LORazepam (ATIVAN) injection 1 mg 1 023 LORazepam (ATIVAN) injection 2 mg 2 023 mirtazapine (REMERON) tablet 7.5 mg 1 09/29 naloxone (NARCAN) 0.4 mg/mL injection 0.4 mg 1 09/29/2023 pantoprazole (PROTONIX) 40 m g in sodium chloride 0.9% 10 mL IV Syringe 1 09/29/[address] (PROTONIX) e xtended release tablet 40 mg 1 09/29/2023 propranoloL (INDERAL) tablet 10 mg 1 2022 sucralfate (CARAFATE) tablet 1 g 1 09/29/20 thiamine (VITAMIN B-1) 100 m g, folic acid (FOLVITE) 1 mg in sodium chloride 0.9% 100 mL IVPB 1 09/29/2023 Diet Count Last Ordered Date First Orde red Date ADULT DISCHARGE DIET 1 10/05/2023 Nursing Count Last Ordered Date First Orde red Date DISCHARGE ACTIVITY 1 10/05/2023 DISCHARGE CALL PROVIDER 8 10/05/2023 FOLLOW UP WITH ESTABLISHED PROVIDER 2 10/05 ACTIVITY 1 09/29/2023 CAPNOGRAPHY MONITORING 1 09/29/2023 CONTINUOUS PULSE OXIMETRY 1 09/29/2023 NOTIFY PROVIDER (SPECIFY) 2 09/29/2023 STRICT INTAKE AND OUTPUT 1 09/29/2023 TELEMETRY MONITORING 1 09/29/2023 TOBACCO CESSATION EDUCATION 1 09/29/2023 WEIGH PATIENT 1 09/29/2023 Consult Count Last Ordered Date First Orde red Date IP CONSULT TO NUTRITION SERVICES 1 09/29/20 23 IP CONSULT TO SOCIAL WORK 2 09/29/2023 Isolation Count Last Ordered Date First Orde red Date INITIATE DROPLET ISOLATION 1 09/29/2023 IV Count Last Ordered Date First Orde red Date SALINE LOCK IV 1 09/28/2023 Admission Count Last Ordered Date First Orde red Date ADMIT TO INPATIENT 1 09/29/2023 Transfer Count Last Ordered Date First Orde red Date ED TO FLOOR BED REQUEST 1 09/29/2023 Discharge Count Last Ordered Date First Orde red Date DISCHARGE PATIENT 1 10/05/2023 CORE MEASURES Count Last Ordered Date First Ord ered Date REASON FOR NO VTE PROPHYLAXIS AT ADMISSION 1 09/29/2023 documented in this encounter Additional Health Concerns Infection Onset Date Last Indicated Resolved Time COVID: Suspected 09/29/2023 09/29/2023 09/29/2023 7:44 AM MEAL GRINDER TENDER documented as of this encounter Care Teams Furniture Assembler Relationship Specialty Start Date End Date Major Dotson MD PCP - General Internal Medicine 11/07/21 Harpal Lopez MD [facility] [address] Referring Physician Internal Medicine 10/05/23 documented as of this encounter
--- OUTSIDE RECORDS SUMMARY | 2024-10-19 23:35 | XMS_ITS | Referral Summary ---
Author Organization [facility] Address [address] [place] [address] Care Team Providers Care Metal Sander Name Role Phone Eric Oconnell MD Unavailable [phone] Teodoro Lopez Primary Care Provider Unavailabl e Source Comments [facility],non-owned Affiliates and Associated Physician Practices is amultiple site organization consisting of ambulatory clinics and hospital sitesin [place], [place], [place] and [place]. This disclosure is being madepursuant to the Care Everywhere program and may not contain all information available regarding this patient. Last updated 18.[facility] Encounters Date Type Department Care Team Description [...] affected area as needed Active HYDROcodone-acetamin ophen ([place]) 5-325 MG tablet Take 1 (one) tablet [...] st Contact Info) Description 11/29/2024 8:30 AM ECHOCARDIOGRAPHER Office Visit [facility] - Orthopedic Surgery [address] [place] [phone] Toño Cabrera MD [address] [facility] [address] [place] [address] 01/08/2025 8:00 AM CDT Appointment [address] [phone] 01/08/2025 9:00 AM CDT Office Visit [facility] - GI [address] [facility], [place] [phone] Amos Pabno MD [facility] [place] [address] Goals Goal Patient Goal Type Associated Problems [...] HEPATITIS C ANTIBODY Routine 10/01/2021 11:38 AM ECHOCARDIOGRAPHER Cirrhosis of liver with ascites, unspecified hepatic cirrhosis type (HCC) from Last 3 Months or Most Recently Relevant to Health Maintenance Results * (ABNORMAL) COMPREHENSIVE METABOLIC PANEL (03/29/2024 4:30 AM CDT) BUN 10 7 - 26 mg/dL 03/29/2024 5:09 AM [facility] Creatinine 0.84 0.71 - 1.16 mg/dL 03/29/2024 5:09 AM [facility] Sodium 135(L) 136 - 145 mmol/L 03/29/2024 5:09 AM [facility] Potassium 3.8 3.5 - 4.5 mmol/L 03/29/2024 5:09 AM [facility] Chloride 105 98 - 107 mmol/L 03/29/2024 5:09 AM [facility] CO2 22 22 - 29 mmol/L 03/29/2024 5:09 AM [facility] Glucose 87 70 - 115 mg/dL 03/29/2024 5:09 AM [facility] Calcium 9.6 8.4 - 10.2 mg/dL 03/29/2024 5:09 AM [facility] Protein Total 7.6 6.0 - 8.3 g/dL 03/29/2024 5:09 AM [facility] Albumin 3.8 3.4 - 5.0 g/dL 03/29/2024 5:09 AM [facility] Bilirubin Total 0.9 0.2 - 1.2 mg/dL 03/29/2024 5:09 AM [facility] Alkaline Phosphatase 81 40 - 150 U/L 03/29/2024 5:09 AM [facility] ALT 20 5 - 55 U/L 03/29/2024 5:09 AM [facility] AST 17 5 - 34 U/L 03/29/2024 5:09 AM [facility] Anion Gap 8 6 - 16 03/29/2024 5:09 AM [facility] BUN/Creatinine Ratio 12 7 - 23 03/29/2024 5:09 AM [facility] Osmolality Calculated 278 275 - 295 mOsm/kg 03/29/2024 5:09 AM [facility] Albumin/Globulin Ratio 1.0(L) 1.1 - 2.3 03/29/2024 5:09 AM [facility] eGFR by CKD-EPI >90 >=90 mL/min/1.7 3 m2 03/29/2024 5:09 AM [facility] Blood BLOOD SPECIMEN / Unknown Lab Venipuncture / Unknown 03/29/2024 4:30 AM [facility] 03/29/2024 4:41 AM [facility] Isaak Ibrahim MD LAB - CHEMISTRY KURT ZARAGO[facility] Organization Address City/State/ZIP Co de Phone Number [facility] [address] [place] [id number], [facility] [phone] * HEPATITIS C ANTIBODY (10/01/2021 11:38 AM ECHOCARDIOGRAPHER) Hepatitis C Antibody Non-react young Non-reac tive 10/01/2021 1:14 PM ECHOCARDIOGRAPHER [facility] Comment:Hepatitis C Antibody screen indicates no serologic evidence of past or current infection with Hepatitis C Virus. Patients with unexplained liver disease who are immunocompromised or suspected of having acute Hepatitis C infection may benefit from Nucleic Acid Test (MARIBELL) for Hepatitis C Viral RNA to confirm Hepatitis C status. Blood BLOOD SPECIMEN / Unknown Lab Venipuncture / Unknown 10/01/2021 11:38 AM ECHOCARDIOGRAPHER 10/01/2021 11:46 AM ECHOCARDIOGRAPHER Amos Pabon MD LAB - CHEMISTRY KURT ZARAG[facility] [address] [place] [address], [facility] [phone] from Last 3 Months or Most Recently Relevant to Health Maintenance Advance Directives * Full Code (Latest Code Status on File) Date Activated Date Inactivated Comments 03/29/2024 12:13 AM 03/29/2024 11:54 PM Care Teams Metal Sander Relationship Specialty Start Date End Date Teodoro Lopez PCP - General 05/17/24 Eric Oconnell MD Hospitalist 10/10/21
--- OUTSIDE RECORDS SUMMARY | 2024-10-19 23:35 | XMS_ITS | Clinical Summary ---
Author Organization [facility] Address [address] [place] [address] Care Team Providers Care Cardiology Rn Name Role Phone Eric Oconnell MD Unavailable [phone] Teodoro Lopez Primary Care Provider Unavailabl e Source Comments [facility],non-owned Affiliates and Associated Physician Practices is amultiple site organization consisting of ambulatory clinics and hospital sitesin [place], [place], [place] and [place]. This disclosure is being madepursuant to the Care Everywhere program and may not contain all information available regarding this patient. Last updated 18.[facility] Allergies Active Allergy Reactions Criticality Noted Date [...] affected area as needed Active HYDROcodone-acetamin ophen ([place]) 5-325 MG tablet Take 1 (one) tablet [...] st Contact Info) Description 11/29/2024 8:30 AM GLASS CARRIER Office Visit [facility] - Orthopedic Surgery [address] [place] [address] Toño Cabrera MD [address] [facility] [address] [place] [address] 01/08/2025 8:00 AM CDT Appointment [facility] [address] [place] [phone] 01/08/2025 9:00 AM CDT Office Visit [facility] - GI [address] [facility] [place] [place] [phone] Amos Pabon MD [address] [place] [address] [address] [facility] [place] [address] Health Maintenance Due Date Last Done Comments [...] HEPATITIS C ANTIBODY Routine 10/01/2021 11:38 AM GLASS CARRIER Cirrhosis of liver with ascites, unspecified hepatic cirrhosis type (HCC) from Last 3 Months or Most Recently Relevant to Health Maintenance Results * (ABNORMAL) COMPREHENSIVE METABOLIC PANEL (03/29/2024 4:30 AM CDT) [facility] BUN 10 7 - 26 mg/dL 03/29/2024 5:09 AM CDT [facility] Creatinine 0.84 0.71 - 1.16 mg/dL 03/29/2024 5:09 AM [facility] Sodium 135(L) 136 - 145 mmol/L 03/29/2024 5:09 AM [facility] Potassium 3.8 3.5 - 4.5 mmol/L 03/29/2024 5:09 AM [facility] Chloride 105 98 - 107 mmol/L 03/29/2024 5:09 AM [facility] CO2 22 22 - 29 mmol/L 03/29/2024 5:09 AM [facility] Glucose 87 70 - 115 mg/dL 03/29/2024 5:09 AM [facility] Calcium 9.6 8.4 - 10.2 mg/dL 03/29/2024 5:09 AM [facility] Protein Total 7.6 6.0 - 8.3 g/dL 03/29/2024 5:09 AM [facility] Albumin 3.8 3.4 - 5.0 g/dL 03/29/2024 5:09 AM [facility] Bilirubin Total 0.9 0.2 - 1.2 mg/dL 03/29/2024 5:09 AM [facility] Alkaline Phosphatase 81 40 - 150 U/L 03/29/2024 5:09 AM [facility] ALT 20 5 - 55 U/L 03/29/2024 5:09 AM [facility] AST 17 5 - 34 U/L 03/29/2024 5:09 AM [facility] Anion Gap 8 6 - 16 03/29/2024 5:09 AM [facility] BUN/Creatinine Ratio 12 7 - 23 03/29/2024 5:09 AM [facility] Osmolality Calculated 278 275 - 295 mOsm/kg 03/29/2024 5:09 AM [facility] Albumin/Globulin Ratio 1.0(L) 1.1 - 2.3 03/29/2024 5:09 AM [facility] eGFR by CKD-EPI >90 >=90 mL/min/1.7 3 m2 03/29/2024 5:09 AM [facility] Blood BLOOD SPECIMEN / Unknown Lab Venipuncture / Unknown 03/29/2024 4:30 AM CDT 03/29/2024 4:41 AM CDT Isaak Ibrahim MD LAB - CHEMISTRY [facility] [address] [place] [address], [place] [phone] * HEPATITIS C ANTIBODY (10/01/2021 11:38 AM GLASS CARRIER) Hepatitis C Antibody Non-react young Non-reac tive 10/01/2021 1:14 PM GLASS CARRIER [facility] Comment:Hepatitis C Antibody screen indicates no serologic evidence of past or current infection with Hepatitis C Virus. Patients with unexplained liver disease who are immunocompromised or suspected of having acute Hepatitis C infection may benefit from Nucleic Acid Test (MARIBELL) for Hepatitis C Viral RNA to confirm Hepatitis C status. Blood BLOOD SPECIMEN / Unknown Lab Venipuncture / Unknown 10/01/2021 11:38 AM GLASS CARRIER 10/01/2021 11:46 AM GLASS CARRIER Amos Pabon MD LAB - CHEMISTRY KURT [facility]ARAGOZA Performing Organization Address City/[facility]/ZIP Co de Phone Number [place] [id number] [place] [address], [place] [phone] from Last 3 Months or Most Recently Relevant to Health Maintenance Advance Directives * Full Code (Latest Code Status on File) Date Activated Date Inactivated Comments 03/29/2024 12:13 AM 03/29/2024 11:54 PM Care Teams Cardiology Rn Relationship Specialty Start Date End Date Teodoro Lopez PCP - General 05/17/24 Eric Oconnell MD Hospitalist 10/10/21
--- OUTSIDE RECORDS SUMMARY | 2024-10-19 23:36 | XMS_ITS | Encounter Summary ---
Author Organization [facility] Address [address] [place] [address] Care Team Providers Care Field Scout Name Role Phone Eric Oconnell MD Unavailable [phone] Gregorio James MD Primary Care Provider [phone] Reason for Visit * Reason Comments Pain Knee Encounter Details Date Type Department Care Team (Latest Contact Info) Description 02/16/2023 11:45 AM CDT Office Visit [facility] [address] [place] [address] Toño Cabrera MD [address] [address] Primary osteoarthritis of left knee (Primary Dx); [...] CDTAssociated Order(s): PROC INJECTION JOINT (SMALL/INTERMED/MAJOR) Procedure(s): WI DRAIN/INJECT LARGE JOINT/BURSA Pre-Procedure Diagnose(s): Primary osteoarthritis of left knee Orthopaedic Surgery Procedure Note Lukas Diaz [id number] Diagnosis: Left knee pain Procedure: Injection of [...] st Contact Info) Description 11/29/2024 8:30 AM GAS WELL DRILLING MANAGER Office Visit [facility] - Orthopedic Surgery [address] [place] [address] Toño Cabrera MD [address] [facility] [address] [place] [address] 01/08/2025 8:00 AM CDT Appointment [facility] [address] [place] [address] 01/08/2025 9:00 AM CDT Office Visit [facility] - GI [address] [facility], [place] [phone] Amos Pabon MD [address] [place] [address] [place] [address] documented as of this encounter Goals Goal [...] Procedure Name Priority Date/Time Associated Diagnosis Comments WI DRAIN/INJECT LARGE JOINT/BURSA Routine 02/16/2023 12:00 PM CDT Primary osteoarthritis of left knee documented in this encounter Results * WI DRAIN/INJECT LARGE JOINT/BURSA (02/16/2023 12:00 PM CDT) Narrative Toño Cabrera MD - 02/16/2023 12:00 PM CDT Toño Cabrera MD ? 02/18/2023 ??3:47 PM Orthopaedic Surgery Procedure Note Lukas Diaz [id number] Diagnosis: Left knee pain Procedure: Injection of [...] Knee documented in this encounter Care Teams Field Scout Relationship Specialty Start Date End Date Gregorio James MD [address] [place] [phone] PCP - General 08/11/22 05/16/24 Eric Oconnell MD Hospitalist 10/10/21 documented as of this encounter
--- OUTSIDE RECORDS SUMMARY | 2024-10-19 23:36 | XMS_ITS | Encounter Summary ---
Author Organization [facility] Health Address [address] [facility] [place] [address] Care Team Providers Care Copra Processor Name Role Phone Eric Oconnell MD Unavailable [phone] Gregorio James MD Primary Care Provider [phone] Encounter Details Date Type Department Care Team [...] st Contact Info) Description 11/29/2024 8:30 AM DATABASE SECURITY EXPERT Office Visit [facility] - Orthopedic Surgery 1031 [place] [address] Toño Cabrera MD [address] [address] 01/08/2025 8:00 AM CDT Appointment [facility] 1201 [place] [phone] 01/08/2025 9:00 AM CDT Office Visit [facility] Physician Group - GI 1225 [facility], [place] [address] Amos Pabon MD [address] [place] [address] [place] [address] documented as of this encounter Goals Goal [...] on filedocumented in this encounter Care Teams Copra Processor Relationship Specialty Start Date End Date Gregorio James MD [address] [place] [phone] PCP - General 08/11/22 05/16/24 Eric Oconnell MD Hospitalist 10/10/21 documented as of this encounter
--- OUTSIDE RECORDS SUMMARY | 2024-10-19 23:36 | XMS_ITS | Encounter Summary ---
Author Organization [facility] Health Address [address] [facility] [place] [address] Care Team Providers Care New Car Get Ready Mechanic Name Role Phone Eric Oconnell MD Unavailable [phone] Gregorio James MD Primary Care Provider Encounter [...] st Contact Info) Description 11/29/2024 8:30 AM ADVENTURE CHALLENGE INSTRUCTOR Office Visit [facility] - Orthopedic Surgery [address] [place] [address] Toño Cabrera MD [address] [address] 01/08/2025 8:00 AM CDT Appointment [facility] 1201 [place] [address] 01/08/2025 9:00 AM CDT Office Visit [facility] Physician Group - GI 1225 [facility], [place] [address] Amos Pabon MD [address] [place] [address] [place] [address] documented as of this encounter Goals Goal [...] on filedocumented in this encounter Care Teams New Car Get Ready Mechanic Relationship Specialty Start Date End Date Gregorio James MD [address] [address] PCP - General 08/11/22 05/16/24 Eric Oconnell MD Hospitalist 10/10/21 documented as of this encounter
--- OUTSIDE RECORDS SUMMARY | 2024-10-19 23:36 | XMS_ITS | Encounter Summary ---
Author Organization [facility] Address [address] [facility] [place] [address] Care Team Providers Care Occupational Therapy Manager Name Role Phone Eric Oconnell MD Unavailable [phone] Gregorio James MD Primary Care Provider [phone] Reason for Visit * Reason Onset Date Comments Pain Abdominal 03/28/2024 Encounter Details Date Type Department Care Team (Late st Contact Info) Description 03/28/2024 Telephone [facility] - [address] [facility], [place] [address] Tika uBll RN Pain Abdominal Social History Tobacco Use [...] disconnected at this time. This nurse contacted [facility] and requested to speak with the DON or REAL ESTATE ANALYST. Director Of Clinical Trials stated they were both gone for the day so this nurse requested to speak to Aircraft Refueller. This nurse was placed on hold for [...] currently a 9/10, states he took a [place] about an hour ago. States he is [...] st Contact Info) Description 11/29/2024 8:30 AM UTILIZATION MANAGEMENT NURSE Office Visit [facility] - Orthopedic Surgery 1031 [place] [address] Toño Cabrera MD 1031 [facility] 280 [place] [address] 01/08/2025 8:00 AM CDT Appointment [facility] 1201 [place] [address] 01/08/2025 9:00 AM CDT Office Visit [facility] - GI 1225 [facility], [place] [address] Amos Pabon MD [address] [place] [address] [place] [address] documented as of this encounter Goals Goal [...] on filedocumented in this encounter Care Teams Occupational Therapy Manager Relationship Specialty Start Date End Date Gregorio James MD [address] [place] [address] PCP - General 08/11/22 05/16/24 Eric Oconnell MD Hospitalist 10/10/21 documented as of this encounter
--- OUTSIDE RECORDS SUMMARY | 2024-10-19 23:36 | XMS_ITS | Encounter Summary ---
Author Organization [facility] Health Address [address] [facility] [place] [address] Care Team Providers Care Activities Attendant Name Role Phone Eric Oconnell MD Unavailable [phone] Major Kraft MD Primary Care Provider [phone] Encounter Details Date Type Department Care Team (Late st Contact Info) Description 08/10/2022 Orders Only [facility] [address] [place] [address] Toño Cabrera MD [address] [facility] 280 [place], [place] [phone] Left knee pain, unspecified chronicity Social History [...] st Contact Info) Description 11/29/2024 8:30 AM REFUELING RAMP SUPERVISOR [facility] Visit [facility] - [facility] 1031 [place] [address] Toño Cabrera MD [address] [address] 01/08/2025 8:00 AM CDT Appointment [facility] 1201 [place] [address] 01/08/2025 9:00 AM CDT Office Visit [facility] - GI 1225 [facility], [place] [address] Amos Pabon MD [address] [place] [address] [place] [address] documented as of this encounter Goals Goal [...] DATE/TIME OF EXAM: ??08/11/2022 9:22 AM, LOCATION ??[facility] INDICATION: M25.562: Pain in left knee [...] MORE, DATE/TIME OF EXAM: 29:22 AM, LOCATION [facility] INDICATION: M25.562: Pain in left knee [...] chronicity documented in this encounter Care Teams Activities Attendant Relationship Specialty Start Date End Date Major Kraft MD PCP - General 07/06/22 08/10/22 Eric Oconnell MD Hospitalist 10/10/21 documented as of this encounter
--- OUTSIDE RECORDS SUMMARY | 2024-10-19 23:36 | XMS_ITS | Encounter Summary ---
Author Organization [facility] Health Address [address] [facility] [place] [address] Care Team Providers Care Payroll Processor Name Role Phone Eric Oconnell MD Unavailable [phone] Gregorio James MD Primary Care Provider [phone] Reason for Visit * Reason Comments Pain Knee Left knee injection Encounter Details Date Type Department Care Team (Latest Contact Info) Description 11/17/2023 10:15 AM PELLET PRESS OPERATOR Office Visit [facility]ician [facility] - Orthopedic Surgery 1031 [place] [phone] Toño Cabrera MD [facility] [address] [phone] Primary osteoarthritis of left knee (Primary Dx) [...] We will see patient back as needed. ET PRESS OPERATOR documented in this encounter Procedure Notes * Toño Cabrera MD - 11/17/2023 10:31 AM CSTAssociated Order(s): PROC INJECTION JOINT (SMALL/INTERMED/MAJOR) Procedure(s): SD DRAIN/INJECT LARGE JOINT/BURSA Pre-Procedure Diagnose(s): Primary osteoarthritis of left knee Orthopaedic Surgery Procedure Note Lukas Diaz [id number] Diagnosis: Left knee pain Procedure: Injection of [...] procedure Toño Cabrera MD 11/17/2023 10:31 AM ET PRESS OPERATOR documented in this encounter Plan of Treatment Upcoming Encounters Date Type Department Care Team (Late st Contact Info) Description 11/29/2024 8:30 AM PELLET PRESS OPERATOR Office Visit [facility]ician [facility] - Orthopedic Surgery 1031 [place] [address] Toño Cabrera MD 1031 [facility] 280 [place] [address] 01/08/2025 8:00 AM CDT Appointment [facility] 1201 [place] [address] 01/08/2025 9:00 AM CDT Office Visit [facility]ician [facility] - GI 1225 [facility], [place] [address] Amos Pabon MD [address] [place] [address] [place] [address] documented as of this encounter Goals Goal [...] Diagnosis Comments SD DRAIN/INJECT LARGE JOINT/BURSA Routine 11/17/2023 10:31 AM PELLET PRESS OPERATOR Primary osteoarthritis of left knee documented in this encounter Results * SD DRAIN/INJECT LARGE JOINT/BURSA (11/17/2023 10:31 AM PELLET PRESS OPERATOR) Narrative Toño Cabrera MD - 11/17/2023 10:31 AM PELLET PRESS OPERATOR Toño Cabrera MD ? 11/17/2023 10:31 AM Orthopaedic Surgery Procedure Note Lukas Diaz [id number] Diagnosis: Left knee pain Procedure: Injection of [...] at 1045 $ Given 11/17/2023 12:13 PM PELLET PRESS OPERATOR Left Knee triamcinolone acetonide (Kenalog-40) injection 80 mg 80 mg, Intra-articular, ONCE, 1 dose, On Wed11/17/23 at 1045, Shake well before using. $ Given 11/17/2023 12:14 PM PELLET PRESS OPERATOR 80 mg Left Knee documented in this encounter Care Teams Payroll Processor Relationship Specialty Start Date End Date Gregorio James MD [address] [place] [phone] PCP - General 08/11/22 05/16/24 Eric Oconnell MD Hospitalist 10/10/21 documented as of this encounter
--- OUTSIDE RECORDS SUMMARY | 2024-10-19 23:36 | XMS_ITS | Encounter Summary ---
Author Organization [facility] Health Address [address] [facility] [place] [address] Care Team Providers Care Personnel Manager Name Role Phone Eric Oconnell MD Unavailable [phone] Gregorio James MD Primary Care Provider [phone] Encounter Details Date Type Department Care Team [...] st Contact Info) Description 11/29/2024 8:30 AM HOSEMAN Office Visit [facility] - Orthopedic Surgery 1031 [place] [address] Toño Cabrera MD [address] [address] 01/08/2025 8:00 AM CDT Appointment [facility] 1201 [place] [address] 01/08/2025 9:00 AM CDT Office Visit [facility] - GI 1225 [facility], [place] [address] Amos Pabon MD [address] [place] [address] [place] [address] documented as of this encounter Goals Goal [...] on filedocumented in this encounter Care Teams Personnel Manager Relationship Specialty Start Date End Date Gregorio James MD [address] [place] [address] PCP - General 08/11/22 05/16/24 Eric Oconnell MD Hospitalist 10/10/21 documented as of this encounter
--- OUTSIDE RECORDS SUMMARY | 2024-10-19 23:36 | XMS_ITS | Encounter Summary ---
Author Organization [facility] Health Address [address] [facility] [place] [address] Care Team Providers Care Pipe Welder Name Role Phone Eric Oconnell MD Unavailable [phone] Gregorio James MD Primary Care Provider [phone] Encounter Details Date Type Department Care Team [...] st Contact Info) Description 11/29/2024 8:30 AM INSTITUTIONAL RESEARCH COORDINATOR Office Visit [facility] - Orthopedic Surgery 1031 [place] [address] Toño Cabrera MD [address] [address] 01/08/2025 8:00 AM CDT Appointment [facility] 1201 [place] [address] 01/08/2025 9:00 AM CDT Office Visit [facility] - GI 1225 [facility], [place] [address] Amos Pabon MD [address] [place] [address] [place] [address] documented as of this encounter Goals Goal [...] on filedocumented in this encounter Care Teams Pipe Welder Relationship Specialty Start Date End Date Gregorio James MD [address] [place] [phone] PCP - General 08/11/22 05/16/24 Eric Oconnell MD Hospitalist 10/10/21 documented as of this encounter
--- OUTSIDE RECORDS SUMMARY | 2024-10-19 23:36 | XMS_ITS | Encounter Summary ---
Author Organization [facility] Health Address [address] [facility] [place] [address] Care Team Providers Care Cloth Carrier Name Role Phone Eric Oconnell MD Unavailable [phone] Gregorio James MD Primary Care Provider [phone] Encounter Details Date Type Department Care Team [...] st Contact Info) Description 11/29/2024 8:30 AM SUPERINTENDENT GAS DISTRIBUTION Office Visit [facility]ician [facility] - Orthopedic Surgery 1031 [facility] [place] [address] Toño Cabrera MD 1031 [facility] 280 [place] [address] 01/08/2025 8:00 AM CDT Appointment [facility] 1201 [place] [address] 01/08/2025 9:00 AM CDT Office Visit [facility]ician [facility] - GI 1225 [facility], [place] [address] Amos Pabon MD [address] [place] [address] [address] [facility] [place] [address] documented as of this encounter Goals Goal [...] on filedocumented in this encounter Care Teams Cloth Carrier Relationship Specialty Start Date End Date Gregorio James MD [address] [place] [phone] PCP - General 08/11/22 05/16/24 Eric Oconnell MD Hospitalist 10/10/21 documented as of this encounter
--- OUTSIDE RECORDS SUMMARY | 2024-10-19 23:36 | XMS_ITS | Encounter Summary ---
Author Organization [facility] Address [address] [facility] [place] [address] Care Team Providers Care Tailman Name Role Phone Eric Oconnell MD Unavailable [phone] Teodoro Lopez Primary Care Provider Unavailabl e [...] st Contact Info) Description 11/29/2024 8:30 AM SKY CAP Office Visit [facility]ician Group - Orthopedic Surgery 1031 [place] [address] Toño Cabrera MD [address] [address] 01/08/2025 8:00 AM CDT Appointment [facility] 1201 [place] [address] 01/08/2025 9:00 AM CDT Office Visit [facility] Physician Group - GI 1225 [facility], [place] [address] Amos Pabon MD [address] [place] [address] [place] [address] documented as of this encounter Goals Goal [...] on filedocumented in this encounter Care Teams Tailman Relationship Specialty Start Date End Date Teodoro Lopez PCP - General 05/17/24 Eric Oconnell MD Hospitalist 10/10/21 documented as of this encounter
--- OUTSIDE RECORDS SUMMARY | 2024-10-19 23:36 | XMS_ITS | Encounter Summary ---
Author Organization [facility] Address [address] [facility] [address] Care Team Providers Care Silver Plater Name Role Phone Major Kraft MD Primary Care Provider [phone] Eric Oconnell MD Unavailable [phone] Encounter Details Date Type Department Care Team (Late st Contact Info) Description 03/06/2022 Orders Only [facility] - GI [address] [place] [address], [place] [phone] Amos Pabon MD [address] [place] [address] OF GASTROENTEROLOGY [place], [place] [phone] Chronic gastric ulcer without hemorrhage and without [...] st Contact Info) Description 11/29/2024 8:30 AM BIT TRIPOLER Office Visit [facility] - Orthopedic Surgery 1031 [place] [address] Toño Cabrera MD 1031 [facility] 280 [place] [address] 01/08/2025 8:00 AM CDT Appointment [facility] 1201 [place] [address] 01/08/2025 9:00 AM CDT Office Visit [facility]ician Group - GI 1225 [facility], [place] [address] Amos Pabon MD [address] [place] [address] [place] [address] documented as of this encounter Goals Goal [...] Primary documented in this encounter Care Teams Silver Plater Relationship Specialty Start Date End Date Major Kraft MD PCP - General 07/01/21 06/08/22 Eric Oconnell MD Hospitalist 10/10/21 documented as of this encounter
--- OUTSIDE RECORDS SUMMARY | 2024-10-19 23:36 | XMS_ITS | Encounter Summary ---
Author Organization 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 280 [place] [address] 01/08/2025 8:00 AM CDT Appointment [facility] 1201 [place] [address] 01/08/2025 9:00 AM CDT Office Visit [facility] - GI 1225 [facility], [place] [address] Amos Pabon MD [address] [place] [address] [place] [address] documented as of this encounter Goals Goal [...] on filedocumented in this encounter Care Teams Chief Commercial Officer Relationship Specialty Start Date End Date Raya Carty PA-C 1215 [place] [address] PCP - General 06/09/22 07/05/22 Eric Oconnell MD Hospitalist 10/10/21 documented as of this encounter
--- OUTSIDE RECORDS SUMMARY | 2024-10-19 23:36 | XMS_ITS | Patient Health Summary ---
Author Organization [facility] Address [address] [place] [address] Care Team Providers Care Digital Media Director Name Role Phone Eric Oconnell MD Unavailable [phone] Teodoro Lopez Primary Care Provider Unavailabl e Note from [facility],non-owned Affiliates and Associated Physician Practices is amultiple site organization consisting of ambulatory clinics and hospital sitesin [place], [place], [place] and [place]. This disclosure is being madepursuant to the Care Everywhere program and may not contain all information available regarding this patient. Last updated 18.[facility] Allergies * Mushroom Extract Complex(Other) * Peanut-Derived(Anaphylaxis) [...] to affected area as needed * HYDROcodone-acetaminophen ([place]) 5-325 MG tablet Take 1 (one) tablet [...] 33.28 03/28/2024 6:10 PM CDT Procedures * DC DRAIN/INJECT LARGE JOINT/BURSA(Performed 05/17/2024) Performed for Primary osteoarthritis of both knees * DC DRAIN/INJECT LARGE JOINT/BURSA(Performed 05/17/2024) Performed for Primary [...] 03/28/2024) Performed for Shortness of breath * DC DRAIN/INJECT LARGE JOINT/BURSA(Performed 02/16/2024) Performed for Primary osteoarthritis of both knees * DC DRAIN/INJECT LARGE JOINT/BURSA(Performed 02/16/2024) Performed for Primary osteoarthritis of both knees * DC DRAIN/INJECT LARGE JOINT/BURSA(Performed 11/17/2023) Performed for Primary osteoarthritis of left knee * US ABDOMEN LIMITED(Performed 08/25/2023) Performed for Cirrhosis of liver with ascites, unspecified hepatic cirrhosis type (HCC) * VITAMIN D HYDROXY (EXTERNAL RESULT)(Performed 08/12/2023) * CBC W DIFF (EXTERNAL RESULT ENTRY)(Performed 08/12/2023) * COMP MET PANEL (EXTERNAL RESULT ENTRY)(Performed 08/12/2023) * DC DRAIN/INJECT LARGE JOINT/BURSA(Performed 06/29/2023) Performed for Primary osteoarthritis of left knee * PT INR (EXTERNAL RESULT ENTRY)(Performed 02/22/2023) * COMP MET PANEL (EXTERNAL RESULT ENTRY)(Performed 02/22/2023) * CBC W DIFF (EXTERNAL RESULT ENTRY)(Performed 02/22/2023) * DC DRAIN/INJECT LARGE JOINT/BURSA(Performed 02/16/2023) Performed for Primary osteoarthritis of left knee * DC DRAIN/INJECT LARGE JOINT/BURSA(Performed 08/11/2022) Performed for Left knee pain, unspecified chronicity, Primary osteoarthritis of left knee * XR KNEE LEFT 4VW OR MORE(Performed 08/11/2022) Performed for Left knee pain, unspecified chronicity * DC ED EGD FLEX TRANSORAL DX(Performed 06/18/2022) Performed for Chronic gastric ulcer without hemorrhage and without perforation * EGD(Performed 06/18/2022) * PATHOLOGY TISSUE(Performed 03/05/2022) Performed for Other cirrhosis of liver (HCC) * DC ED EGD FLEX TRANSORAL DX(Performed 03/05/2022) Performed [...] ascites, unspecified hepatic cirrhosis type (HCC) * [id number] BLOOD(Performed 10/01/2021) Performed for Cirrhosis of liver [...] DIFF (EXTERNAL RESULT ENTRY)(Performed 05/14/2021) Results * DC DRAIN/INJECT LARGE JOINT/BURSA (05/17/2024 3:13 PM CDT) Narrative Toño Cabrera MD - 05/17/2024 3:13 PM CDT Toño Cabrera MD ? 05/17/2024 ??3:13 PM Orthopaedic Surgery Procedure Note Lukas Diaz [id number] Diagnosis: Left knee pain Procedure: Injection of [...] Cabrera MD PROCEDURE/MINOR TRUDI GICAL ORDERABLES * DC DRAIN/INJECT LARGE JOINT/BURSA (05/17/2024 3:12 PM CDT) Narrative Toño Cabrera MD - 05/17/2024 3:12 PM CDT Toño Cabrera MD ? 05/17/2024 ??3:13 PM Orthopaedic Surgery Procedure Note Lukas Diaz [id number] Diagnosis: Right knee pain Procedure: Injection of [...] DATE/TIME OF EXAM: ??05/17/2024 12:11 PM, LOCATION ??[facility] INDICATION: M17.0: Bilateral primary osteoarthritis of [...] DATE/TIME OF EXAM: 05/17/2024 12:11 PM, LOCATION [facility] INDICATION: M17.0: Bilateral primary osteoarthritis of [...] (mg/dL) <10 <10 mg/dL 12:36 PM CDT [facility] Ethanol Calculated (g/dL) <0.010 <=0.010 g/dL 03/29/2024 12:36 PM CDT [facility] Blood BLOOD SPECIMEN / Unknown Venipuncture / Unknown 03/29/2024 12:08 PM CDT 03/29/2024 12:16 PM CDT Narrative [facility] - 03/29/2024 12:36 PM CDT Ethanol Interp <10: None Detected. Depression of MARKET GARDEN WORKER: >100 mg/dl Potentially Critical: >250 mg/dl Potentially [...] - CHEMISTR Y ORDERABLES Performing Organization Address City/[facility]/ZIP Co de Phone Number [facility] [address] [place] [address], [facility] [phone] * CULTURE BLOOD (03/29/2024 4:31 AM CDT) Only the most recent of2 resultswithin the time period is included. Culture No growth day 5 DEVAUGHN 04/03/2024 8:01 AM CDT [facility] Blood PERIPHERAL BLOOD / Unknown Lab Venipuncture / Unknown 03/29/2024 4:31 AM CDT 03/29/2024 4:37 AM CDT Isaak Ibrahim MD LAB - MICROBIOLOGY O RDERABLES Performing Organization Address City/[facility]/ZIP Co de Phone Number [facility] [address] [place] [address], [facility] [phone] * CBC W/O DIFFERENTIAL (03/29/2024 4:30 AM CDT) Only the most recent of4 resultswithin the time period is included. WBC 8.7 4.0 - 10.7 x10E9/L 03/29/2024 5:08 AM CDT [facility] RBC Count 4.81 4.30 - 5.80 x10E12/L 03/29/2024 5:08 AM CDT [facility] Hemoglobin 15.3 13.3 - 17.5 g/dL 03/29/2024 5:08 AM CDT [facility] Hematocrit 43.4 38.7 - 51.1 % 03/29/2024 5:08 AM [facility] MCV 90.2 80.0 - 98.0 fL 03/29/2024 5:08 AM [facility] MCH 31.8 26.7 - 33.6 pg 03/29/2024 5:08 AM [facility] MCHC 35.3 31.7 - 36.3 g/dL 03/29/2024 5:08 AM [facility] RDW-CV 12.1 11.3 - 14.8 % 03/29/2024 5:08 AM [facility] Platelet Count 178 150 - 420 x10E9/L 03/29/2024 5:08 AM [facility] MPV 10.5 7.8 - 11.4 fL 03/29/2024 5:08 AM [facility] Blood BLOOD SPECIMEN / Unknown Lab Venipuncture / Unknown 03/29/2024 4:30 AM CDT 03/29/2024 4:42 AM CDT Isaak Ibrahim MD LAB - HEMATOLOGY ORD ERABLES [facility] [address] [place] [address], [facility] [phone] * (ABNORMAL) COMPREHENSIVE METABOLIC PANEL (03/29/2024 4:30 AM CDT) Only the most recent of4 resultswithin the time period is included. BUN 10 7 - 26 mg/dL 03/29/2024 5:09 AM [facility] Creatinine 0.84 0.71 - 1.16 mg/dL 03/29/2024 5:09 AM [facility] Sodium 135(L) 136 - 145 mmol/L 03/29/2024 5:09 AM [facility] Potassium 3.8 3.5 - 4.5 mmol/L 03/29/2024 5:09 AM [facility] Chloride 105 98 - 107 mmol/L 03/29/2024 5:09 AM [facility] CO2 22 22 - 29 mmol/L 03/29/2024 5:09 AM [facility] Glucose 87 70 - 115 mg/dL 03/29/2024 5:09 AM [facility] Calcium 9.6 8.4 - 10.2 mg/dL 03/29/2024 5:09 AM [facility] Protein Total 7.6 6.0 - 8.3 g/dL 03/29/2024 5:09 AM [facility] Albumin 3.8 3.4 - 5.0 g/dL 03/29/2024 5:09 AM [facility] Bilirubin Total 0.9 0.2 - 1.2 mg/dL 03/29/2024 5:09 AM [facility] Alkaline Phosphatase 81 40 - 150 U/L 03/29/2024 5:09 AM [facility] ALT 20 5 - 55 U/L 03/29/2024 5:09 AM [facility] AST 17 5 - 34 U/L 03/29/2024 5:09 AM [facility] Anion Gap 8 6 - 16 03/29/2024 5:09 AM [facility] BUN/Creatinine Ratio 12 7 - 23 03/29/2024 5:09 AM [facility] Osmolality Calculated 278 275 - 295 mOsm/kg 03/29/2024 5:09 AM [facility] Albumin/Globulin Ratio 1.0(L) 1.1 - 2.3 03/29/2024 5:09 AM [facility] eGFR by CKD-EPI >90 >=90 mL/min/1.7 3 m2 03/29/2024 5:09 AM [facility] Blood BLOOD SPECIMEN / Unknown Lab Venipuncture / Unknown 03/29/2024 4:30 AM CDT 03/29/2024 4:41 AM T Isaak Ibrahim MD LAB - CHEMISTRY KURT ZARAGOZA [facility] Organization Address City/State/ZIP Co de Phone Number [facility] [address] [place] [address], [facility] [phone] * PHOSPHORUS BLOOD (03/29/2024 4:30 AM CDT) Phosphorus 2.9 2.8 - 5.1 mg/dL 03/29/2024 5:09 AM CDT [facility] Blood BLOOD SPECIMEN / Unknown Lab Venipuncture / Unknown 03/29/2024 4:30 AM CDT 03/29/2024 4:41 AM CDT Isaak Ibrahim MD LAB - CHEMISTRY KURT ZARAGOZA Performing Organization Address City/[facility]/ZIP Co de Phone Number [facility] [address] [place] [phone], [place] [phone] * MAGNESIUM BLOOD (03/29/2024 4:30 AM CDT) Only the most recent of2 resultswithin the time period is included. Magnesium 2.1 1.6 - 2.6 mg/dL 03/29/2024 5:09 AM CDT [facility] Blood BLOOD SPECIMEN / Unknown Lab Venipuncture / Unknown 03/29/2024 4:30 AM CDT 03/29/2024 4:41 AM CDT Isaak Ibrahim MD LAB - CHEMISTRY KURT ZARAGOZA Performing Organization Address [facility]/ZIP Co de Phone Number [address] [address], [place] [phone] * LIPASE BLOOD (03/29/2024 4:30 AM CDT) Only the most recent of2 resultswithin the time period is included. Lipase 13 8 - 78 U/L 03/29/2024 5:09 AM CDT [facility] Blood BLOOD SPECIMEN / Unknown Lab Venipuncture / Unknown 03/29/2024 4:30 AM CDT 03/29/2024 4:41 AM CDT Narrative [facility] - 03/29/2024 5:09 AM CDT Lipase results from the [employer] Alinity analyzer may not be comparable with other methodologies. Isaak Ibrahim MD LAB - CHEMISTRY KURT ZARAGOZA [facility] [address] [place] [address], [facility] [phone] * (ABNORMAL) URINALYSIS REFLEX MICROSCOPIC REFLEX CULTURE (03/29/2024 3:54 AM CDT) Color UA Colorless(A) Straw, Yellow 03/29/2024 4:19 AM [facility] Clarity UA Clear Clear 03/29/2024 4:19 AM T [facility] Specific [place] UA 1.009 1.005 - 1.030 03/29/2024 4:19 AM [facility] pH UA 7.0 5.0 - 8.0 pH 03/29/2024 4:19 AM [facility] Protein UA Negative Negative 03/29/2024 4:19 AM [facility] Glucose UA Negative Negative 03/29/2024 4:19 AM [facility] Ketone UA Negative Negative 03/29/2024 4:19 AM [facility] Bilirubin UA Negative Negative 03/29/2024 4:19 AM [facility] Blood UA Negative Negative 03/29/2024 4:19 AM [facility] Nitrite UA Negative Negative 03/29/2024 4:19 AM [facility] Leukocyte Esterase Negative Negative 03/29/2024 4:19 AM [facility] Urobilinogen UA Negative Negative mg/dL 03/29/2024 4:19 AM [facility] Comment UA Microscopic not indicated. 03/29/2024 4:19 AM [facility] Urine URINE SPECIMEN OBTAINED BY CLEAN CATCH PROCEDURE / Unknown Collection / Unknown 03/29/2024 3:54 AM CDT 03/29/2024 3:56 AM T Narrative [facility] - 03/29/2024 4:19 AM CDT Isaak Ibrahim MD LAB - URINALYSIS ORD ERABLES [facility] [address] [place] [address], [facility] [phone] * XR FEMUR LEFT 2VW (03/29/2024 12:13 AM CDT) Only the most recent of3 resultswithin the time period is included. 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 There is increased osteolysis of the fracture fragments are in femoral head compared to prior exam. The bones are demineralized. Report dictated by Domingo aMrch MD I, Ludin Nuno MD have personally reviewed and interpreted this examination/study. > Interpreting Provider: Ludin Nuno MD on 03/29/2024 11:37 AM Procedure Note Ludin Nuno MD - 03/29/2024 PROCEDURE: XR FEMUR LEFT 2VW, DATE/TIME OF EXAM: 03/29/2024 12:13 AM, LOCATION [facility] INDICATION: R06.02: Shortness of breath ADDITIONAL [...] head. > Dictated by Chad Francisco DO (president consumer electronics company). I, Ramiro Naranjo MD have personally reviewed and interpreted this examination/study. > Interpreting Provider: Ramiro Naranjo MD on 03/29/2024 2:30 AM Narrative 03/29/2024 2:30 AM CDT PROCEDURE: ??CT ABDOMEN PELVIS W CONTRAST, DATE/TIME OF EXAM: ??03/29/2024 12:00 AM, LOCATION ??[facility] INDICATION: R06.02: Shortness of breath ADDITIONAL [...] DATE/TIME OF EXAM: 03/29/2024 12:00 AM, LOCATION [facility] INDICATION: R06.02: Shortness of breath ADDITIONAL [...] femoralhead. > Dictated by Chad Francisco DO (president consumer electronics company). I, Ramiro Naranjo MD have personally reviewed and interpreted this examination/study. > Interpreting Provider: Ramiro Naranjo MD on 03/29/2024 2:30 AM Isaak Ibrahim MD CT ORDERABLES * PT-INR [facility] (03/28/2024 7:13 PM CDT) Only the most recent of4 resultswithin the time period is included. PT 13.8 12.1 - 14.8 Seconds 03/28/2024 7:44 PM CDT [facility] INR 1.1 See Comment 03/28/2024 7:44 PM [facility] Comment:The suggested therap eutic range for standard coumadin (warfarin) therapy is an INR of 2.0-3.0. For high-risk patients (Mechanical Mitral Valve Prosthesis, etc.), the suggested prophylactic therapeutic range is an INR of 2.5-3.5. Blood BLOOD SPECIMEN / Unknown Venipuncture / Unknown 03/28/2024 7:13 PM CDT 03/28/2024 7:16 PM CDT Linda Leslie JACK STRIP ASSEMBLER-VEGETABLE WASHING MACHINE OPERATOR LAB - COAGUL ATION ORDERABLES [facility] [address] [place] [phone], [facility] [phone] * (ABNORMAL) DIFFERENTIAL MANUAL (03/28/2024 7:13 PM CDT) Neutrophil % 72 41 - 74 % 03/28/2024 8:38 PM [facility] Lymphocyte % 16(L) 17 - 47 % 03/28/2024 8:38 PM [facility] Monocyte % 12(H) 3 - 11 % 03/28/2024 8:38 PM [facility] Neutrophil Absolute 9.79(H) 1.60 - 7.50 x10E9/L 03/28/2024 8:38 PM [facility] Lymphocyte Absolute 2.18 1.00 - 4.40 x10E9/L 03/28/2024 8:38 PM [facility] Monocyte Absolute 1.63(H) 0.15 - 1.00 x10E9/L 03/28/2024 8:38 PM [facility] RBC Morphology NORMAL 03/28/2024 8:38 PM [facility] Large Platelets PRESENT(A) (none) 8:38 PM [facility] Blood BLOOD SPECIMEN / Unknown Venipuncture / Unknown 03/28/2024 7:13 PM CDT 03/28/2024 7:18 PM CDT Linda Leslie JACK STRIP ASSEMBLER-VEGETABLE WASHING MACHINE OPERATOR LAB - HEMATO LOGY ORDERABLES [facility] [address] [place] [address], [facility] [phone] * (ABNORMAL) CBC W AUTO DIFFERENTIAL (03/28/2024 7:13 PM CDT) Only the most recent of2 resultswithin the time period is included. WBC 13.6(H) 4.0 - 10.7 x10E9/L 03/28/2024 8:38 PM CDT [facility] RBC Count 4.92 4.30 - 5.80 x10E12/L 03/28/2024 8:38 PM CDT [facility] Hemoglobin 15.7 13.3 - 17.5 g/dL 03/28/2024 8:38 PM T [facility] Hematocrit 43.9 38.7 - 51.1 % 03/28/2024 8:38 PM T [facility] MCV 89.2 80.0 - 98.0 fL 03/28/2024 8:38 PM CDT [facility] MCH 31.9 26.7 - 33.6 pg 03/28/2024 8:38 PM T [facility] MCHC 35.8 31.7 - 36.3 g/dL 03/28/2024 8:38 PM CDT [facility] RDW-CV 11.9 11.3 - 14.8 % 03/28/2024 8:38 PM T [facility] Platelet Count 175 150 - 420 x10E9/L 03/28/2024 8:38 PM T [facility] MPV 9.7 7.8 - 11.4 fL 03/28/2024 8:38 PM T [facility] Blood BLOOD SPECIMEN / Unknown Venipuncture / Unknown 03/28/2024 7:13 PM CDT 03/28/2024 7:18 PM CDT Linda Leslie JACK STRIP ASSEMBLER-VEGETABLE WASHING MACHINE OPERATOR LAB - HEMATO LOGY ORDERABLES [facility] [address] [place] [address], [facility] [phone] * AMMONIA (03/28/2024 7:13 PM CDT) Ammonia 37 <=72 umol/L 03/28/2024 7:40 PM CDT [facility] Blood BLOOD SPECIMEN / Unknown Venipuncture / Unknown 03/28/2024 7:13 PM CDT 03/28/2024 7:16 PM CDT Linda Leslie JACK STRIP ASSEMBLER-VEGETABLE WASHING MACHINE OPERATOR LAB - CHEMIS TRY ORDERABLES [facility] [address] [place] [address], [facility] [phone] * XR CHEST 1VW PORTABLE (03/28/2024 7:10 PM CDT) Anatomical Region Laterality Modality Chest Radiographic Юлия ging 03/28/2024 9:11 PM CDT Narrative 03/29/2024 6:21 AM CDT PROCEDURE: ??XR CHEST 1VW PORTABLE, DATE/TIME OF EXAM: ??03/28/2024 7:14 PM, LOCATION ??[facility] INDICATION: R06.02: Shortness of breath ADDITIONAL CLINICAL INFORMATION: Ordering Provider Reason For Exam: ??r/o effusion COMPARISON: None. FINDINGS/IMPRESSION: Mild bibasilar linear opacities, likely atelectasis. Superimposed aspiration or infection cannot be excluded. There is no pleural effusion or pneumothorax. The cardiomediastinal silhouette is normal. The visible bony thorax is intact. > Dictated by Lukas Francisco DO (J2Ee Programmer) ILudin MD have personally reviewed and interpreted this examination/study. > Interpreting Provider: Ludin Nuno MD on 03/29/2024 6:21 AM Procedure Note Ludin Nuno MD - 03/29/2024 PROCEDURE: XR CHEST 1VW PORTABLE, DATE/TIME OF EXAM: 03/28/2024 7:14 PM, LOCATION [facility] INDICATION: R06.02: Shortness of breath ADDITIONAL CLINICAL INFORMATION: Ordering Provider Reason For Exam: r/o effusion COMPARISON: None. FINDINGS/IMPRESSION: Mild bibasilar linear opacities, likely atelectasis. Superimposed aspiration or infection cannot be excluded. There is no pleural effusionor pneumothorax. The cardiomediastinal silhouette is normal. The visiblebony thorax is intact. > Dictated by Lukas Francisco DO ([employer] Programmer) I, Ludin Nuno MD have personally reviewed and interpreted this examination/study. > Interpreting Provider: Ludin Nuno MD on 03/29/2024 6:21 AM Linda Betancourt Anuj JACK STRIP ASSEMBLER-VEGETABLE WASHING MACHINE OPERATOR DIAGNOSTIC I MAGING ORDERABLES * DC DRAIN/INJECT LARGE JOINT/BURSA (02/16/2024 10:34 AM CDT) Narrative Toño Cabrera MD - 02/16/2024 10:34 AM CDT Toño Cabrera MD ? 02/16/2024 11:34 AM Orthopaedic Surgery Procedure Note Lukas Diaz [id number] Diagnosis: Left knee pain Procedure: Injection of [...] Cabrera MD PROCEDURE/MINOR TRUDI GICAL ORDERABLES * DC DRAIN/INJECT LARGE JOINT/BURSA (02/16/2024 10:34 AM CDT) Narrative Toño Cabrera MD - 02/16/2024 10:34 AM CDT Toño Cabrera MD ? 02/16/2024 11:34 AM Orthopaedic Surgery Procedure Note Lukas Diaz [id number] Diagnosis: Right knee pain Procedure: Injection of [...] Cabrera MD PROCEDURE/MINOR TRUDI GICAL ORDERABLES * DC DRAIN/INJECT LARGE JOINT/BURSA (11/17/2023 10:31 AM BOOT TRIMMER) Narrative Toño Cabrera MD - 11/17/2023 10:31 AM BOOT TRIMMER Toño Cabrera MD ? 11/17/2023 10:31 AM Orthopaedic Surgery Procedure Note Lukas Diaz [id number] Diagnosis: Left knee pain Procedure: Injection of [...] months. Report dictated by Hany Cornelius MD, (president consumer electronics company). I, Bina Perez MD have personally reviewed and interpreted this examination/study. > Interpreting Provider: Bina Perez MD on 08/25/2023 10:18 AM Narrative 08/25/2023 10:18 AM CDT PROCEDURE: ??US ABDOMEN LIMITED, DATE/TIME OF EXAM: ??08/25/2023 7:53 AM, LOCATION ??[facility] INDICATION: K74.60: Cirrhosis of liver with [...] DATE/TIME OF EXAM: 08/25/2023 7:53 AM, LOCATION [facility] INDICATION: K74.60: Cirrhosis of liver with [...] months. Report dictated by Hany Cornelius MD, (president consumer electronics company). I, Bina Perez MD have personally reviewed and interpreted this examination/study. > Interpreting Provider: Bina Perez MD on 08/25/2023 10:18 AM Klarissa Rutledge JACK STRIP ASSEMBLER-VEGETABLE WASHING MACHINE OPERATOR US ORDERABL ES * CBC W DIFF (EXTERNAL RESULT ENTRY) (08/12/2023 6:18 AM CDT) Only the most recent of6 resultswithin the time period is included. WBC (EXTERNAL RESULT) 9.2 10^3/ul [facility] Hemoglobin (EXTERNAL RESULT) 14.9 g/dl [facility] Hematocrit (EXTERNAL RESULT) 44.6 % [facility] Platelets (EXTERNAL RESULT) 179 10^3/ul [facility] Neutrophil Absolute (EXTERNAL RESULT) [facility] Blood BLOOD SPECIMEN / Unknown 08/12/2023 6:18 AM CDT Historical Provider LAB - HEMATOLOGY ORDERABLES [facility] [address] [place] [address], [facility] [phone] * VITAMIN D HYDROXY (EXTERNAL RESULT) (08/12/2023 6:18 AM CDT) Vitamin D Hydroxy (External Result) 75 [facility] Blood 08/12/2023 6:18 AM CDT Historical Provider LAB - CHEMISTRY O CAITLIN [facility] [address] [place] [phone], [facility] [phone] * COMP MET PANEL (EXTERNAL RESULT ENTRY) (08/12/2023 6:18 AM CDT) Only the most recent of5 resultswithin the time period is included. Glucose (EXTERNAL) 87 mg/dL [facility] Sodium (EXTERNAL RESULT) 142 mmol/L [facility] Potassium (EXTERNAL RESULT) 4.3 mmol/L [facility] Chloride (EXTERNAL RESULT) 104 mmol/L [facility] CO2 (EXTERNAL) 29 mmol/L [facility] Calcium (EXTERNAL RESULT) 9.0 mg/dL [facility] Anion Gap (EXTERNAL RESULT) [facility] BUN (EXTERNAL RESULT) 12 mg/dL [facility] Creatinine (EXTERNAL RESULT) 0.8 mg/dl [facility] Alkaline Phosphatase (EXTERNAL RESULT) 70 U/L [facility] ALT (EXTERNAL RESULT) 20 U/L [facility] AST (EXTERNAL RESULT) 15 U/L [facility] Protein Total (EXTERNAL RESULT) 7.1 gm/dL [facility] Albumin (EXTERNAL RESULT) 4.0 gm/dL [facility] Bilirubin Total (EXTERNAL RESULT) 0.5 mg/dL [facility] eGFR MDRD (EXTERNAL RESULT) 80 mL/min/1.7 3m2 [facility] eGFR (EXTERNAL) 97 mL/min/1.7 3m2 [facility] Blood BLOOD SPECIMEN / Unknown 08/12/2023 6:18 AM CDT Historical Provider LAB - CHEMISTRY O CAITLIN [facility] [address] [address], [facility] [phone] * DC DRAIN/INJECT LARGE JOINT/BURSA (06/29/2023 9:27 AM CDT) Narrative Toño Cabrera MD - 06/29/2023 9:27 AM CDT Toño Cabrera MD ? 06/29/2023 ??3:12 PM Orthopaedic Surgery Procedure Note Lukas Diaz [id number] Diagnosis: Left knee pain Procedure: Injection of [...] - CHEMISTRY O RDERABLES OTHER LAB * DC DRAIN/INJECT LARGE JOINT/BURSA (02/16/2023 12:00 PM CDT) Narrative Toño Cabrera MD - 02/16/2023 12:00 PM CDT Toño Cabrera MD ? 02/18/2023 ??3:47 PM Orthopaedic Surgery Procedure Note Lukas Diaz [id number] Diagnosis: Left knee pain Procedure: Injection of [...] Cabrera MD PROCEDURE/MINOR TRUDI GICAL ORDERABLES * DC DRAIN/INJECT LARGE JOINT/BURSA (08/11/2022 10:08 AM CDT) [...] DATE/TIME OF EXAM: ??08/11/2022 9:22 AM, LOCATION ??[facility] INDICATION: M25.562: Pain in left knee [...] MORE, DATE/TIME OF EXAM: 29:22 AM, LOCATION [facility] INDICATION: M25.562: Pain in left knee [...] Procedure Code(s): ? --- Professional --- ? 73054, Esophagogastroduode noscopy, flexible, transoral; diagnostic, ? including collection of specimen(s) by brushing or washing, when ? 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 All rights reserved. The codes documented in this report are preliminary and upon speech therapist review may be revised to meet current compliance requirements. Amos Pabon, 06/18/2022 9:47:50 AM Note Initiated On: 06/18/2022 9:04 AM Number of Addenda: 0 ? [facility] ? [address] [place], [place] [id number] [place] [address] PROVATION 06/18/2022 9:04 AM CDT Amos Pabon MD GI PROCEDURE ORDERAB LES [facility] PROVATION * PATHOLOGY TISSUE (03/05/2022 9:47 AM CDT) Case Report Surgical Pathology Report ? Case: [id number] ? Authorizing Provider: ??Amos Pabon MD ?Collected: ? 03/05/2022 09:47 AM ? Ordering Location: ? [facility] ?Received: ?03/05/2022 11:35 AM ? Pathologist: ? Елена Stubbs MD ? Specimen: ?Gastric, . ??gastric bx R/O H pylori ? 03/06/2022 12:19 PM [facility] Final Diagnosis Stomach, biopsy (A): - Mild reactive changes and proton pump inhibitor effect - No active inflammation or H. pylori organisms (H&E examination) 03/06/2022 12:19 PM [facility] Microscopic Description and Comment Microscopic examination substantiates the final diagnosis. 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 Operative procedure/findings: EGD - few non-bleeding superficial gastric ulcers in antrum, biopsied. 03/06/2022 12:19 PM [facility] Gross Description The requisition and specimen(s) are identified with the patient's name Lukas Diaz. Received in formalin, specimen A , are 4 pink-briscoe tissues, 0.1-0.7 cm in greatest dimension and 1.3 x 0.2 x 0.2 cm in aggregate, submitted in toto in cassette A1. DF 03/06/2022 12:19 PM [facility] Disclaimer The performance characteristics of all immunohistochemical and indirect immunofluorescence stains (if any) cited in this report were determined by the Histopathology Laboratory of [facility]. Some of these tests were developed [...] attending (teaching) pathologist. 03/06/2022 12:19 PM CDT [facility] Embedded Images 03/06/2022 12:19 PM CDT [facility] Biopsy, NOS GASTRIC CONTENTS SPECIMEN / Unknown 03/05/2022 9:47 AM CDT 03/05/2022 11:35 AM CDT Comment:Pre-op diagnosis: Other cirrhosis of liver [K74.69] Amos Pabon MD LAB - PATHOLOGY/CYTO LOGY ORDERABLES [facility] [address] [facility] [place] [address], [facility] [phone] * EGD (03/05/2022 9:23 AM CDT) Report Endoscopy POC Endoscopy Department Report __ _ Patient Name: Lukas Diaz ? Procedure Date: 03/05/2022 9:23 AM ?Date of : 1985 Classification: Outpatient ?Gender: Male Ethnicity: Not or ? Race: White __ _ Providers: ?Amos Pabon Referring MD: ? Major LantiguaKaran Kraft (Referring [...] Procedure Code(s): ? --- Professional --- ? 37762, Esophagogastroduode noscopy, flexible, transoral; with biopsy, ? single or multiple Diagnosis Code(s): ?--- Professional --- ?K21.0, Gastro-esophageal reflux disease with ?esophagitis ?K22.8, Other specified diseases of esophagus ?K25.9, Gastric ulcer, unspecified as acute or ?chronic, without hemorrhage or perforation ?I85.00, Esophageal varices without bleeding CPT copyright 2019 [employer]. All rights reserved. The codes documented in this report are preliminary and upon speech therapist review may be revised to meet current compliance requirements. Amos Pabon, 03/05/2022 9:59:19 AM Note Initiated On: 03/05/2022 9:23 AM Number of Addenda: 0 ? [facility] ? [address] [place] [address] [facility] 03/05/2022 9:23 AM CDT Amos Pabon MD GI PROCEDURE ORDERAB LES Performing Organization Address [facility]/ZIP Co de Phone Number [facility] * ALPHA FETOPROTEIN BLOOD TUMOR MARKER (02/16/2022 2:26 PM CDT) Only the most recent of2 resultswithin the time period is included. [facility] Alpha-Fetoprote in Tumor Marker 2.9 <=8.3 ng/mL 02/16/2022 4:09 PM CDT [facility] Comment: AFP values will vary depending on testing procedure used. Results are not comparable across different methods. AFP values obtained by [facility] using an Jenkins Alinity Immunoassay. Blood BLOOD SPECIMEN / Unknown Lab Venipuncture / Unknown 02/16/2022 2:26 PM CDT 02/16/2022 3:24 PM CDT Amos Pabon MD LAB - CHEMISTRY ORDE RABVIDA Performing Organization Address City/[facility]/ZIP Co de Phone Number [facility] [address] [place] [address], [facility] [phone] * (ABNORMAL) BASIC METABOLIC PANEL (CALCIUM TOTAL) (02/16/2022 2:26 PM CDT) Only the most recent of2 resultswithin the time period is included. [facility] BUN 9 7 - 26 mg/dL 02/16/2022 3:50 PM CDT [facility] Creatinine 0.76 0.71 - 1.16 mg/dL 02/16/2022 3:50 PM CDT [facility] Sodium 139 136 - 145 mmol/L 02/16/2022 3:50 PM CDT [facility] Potassium 3.7 3.5 - 4.5 mmol/L 02/16/2022 3:50 PM T [facility] Chloride 98 98 - 107 mmol/L 02/16/2022 3:50 PM T [facility] CO2 31(H) 22 - 29 mmol/L 02/16/2022 3:50 PM T [facility] Glucose 70 70 - 115 mg/dL 02/16/2022 3:50 PM T [facility] Calcium 10.4(H) 8.4 - 10.2 mg/dL 02/16/2022 3:50 PM T [facility] Anion Gap 14 8 - 18 02/16/2022 3:50 PM [facility] BUN/Creatinine Ratio 12 7 - 23 02/16/2022 3:50 PM [facility] Osmolality Calculated 285 270 - 300 mOsm/kg 02/16/2022 3:50 PM [facility] eGFR by CKD-EPI >90 >=90 mL/min/1.7 3 m2 02/16/2022 3:50 PM [facility] Blood BLOOD SPECIMEN / Unknown Lab Venipuncture / Unknown 02/16/2022 2:26 PM CDT 02/16/2022 3:20 PM CDT Amos Pabon MD LAB - CHEMISTRY ORDE [facility] Organization Address City/State/ZIP Co de Phone Number [facility] [address] [place] [address], [facility] [phone] * (ABNORMAL) HEPATIC FUNCTION PANEL (02/16/2022 2:26 PM CDT) Only the most recent of2 resultswithin the time period is included. Protein Total 8.9(H) 6.0 - 8.3 g/dL 022 3:50 PM T [facility] Albumin 4.0 3.4 - 5.0 g/dL 02/16/2022 3:50 PM T [facility] Bilirubin Total 0.5 0.2 - 1.2 mg/dL 01/24 3:50 PM CDT [facility] Bilirubin Conjugated 0.3 0.1 - 0.5 mg/dL 02/16/2022 3:50 PM T [facility] Bilirubin Unconjugated 0.2 Unconjugated Bilirubin is a calculated value: Reference ranges have not been established. mg/dL 02/16/2022 3:50 PM CDT [facility] Alkaline Phosphatase 130 40 - 150 U/L 02/16/2022 3:50 PM CDT [facility] ALT 20 5 - 55 U/L 02/16/2022 3:50 PM T [facility] AST 24 5 - 34 U/L 02/16/2022 3:50 PM T [facility] Albumin/Globulin Ratio 0.8(L) 1.1 - 2.3 02/16/2022 3:50 PM [facility] Blood BLOOD SPECIMEN / Unknown Lab Venipuncture / Unknown 02/16/2022 2:26 PM CDT 02/16/2022 3:20 PM CDT Amos Pabon MD LAB - CHEMISTRY KURT ZARAGOZA [facility] Organization Address City/State/ZIP Co de Phone Number [facility] [address] [place] [address], [facility] [phone] * (ABNORMAL) VITAMIN D 25-HYDROXY (12/19/2021 1:35 AM BOOT TRIMMER) [facility] Vitamin D, 25 Hydroxy 7.0(L) 30.0 - 80.0 ng/mL 12/19/2021 2:30 AM BOOT TRIMMER [facility] Comment: The recommendations for 25-Hydroxy Vitamin D [...] Lab Venipuncture / Unknown 12/19/2021 1:35 AM BOOT TRIMMER 12/19/2021 1:46 AM BOOT TRIMMER Anastasia Chowdhury [employer] LAB - CHEMISTR Y ORDERABLES Performing Organization Address [facility]/State/ZIP Co de Phone Number [address] [address], [facility] [phone] * CT HIP LEFT WO CONTRAST (12/18/2021 6:44 AM BOOT TRIMMER) Anatomical Region Laterality Modality Lower Extremity Computed Tomogra phy 12/18/2021 6:48 AM BOOT TRIMMER Impressions 12/18/2021 8:00 AM BOOT TRIMMER Impression: Displaced left femoral neck fracture, age-indeterminate. Cannot exclude a small posterior-superior acetabular wall fracture. See comments above. Report drafted by Shaun Marie (resident) I, Dr. VALENTE MCDUFFIE MD have personally reviewed and interpreted this examination/study. This report was electronically signed by VALENTE MCDUFFIE MD ??on 12/18/2021 8:00 AM . Narrative 12/18/2021 8:00 AM BOOT TRIMMER Procedure Information DATE: 12/18/2021 6:45 AM EXAMINATION: [...] URINE DRUG SCREEN IMMUNOASSAY (12/18/2021 4:57 AM BOOT TRIMMER) [facility] Amphetamines Screen Urine Positive(A) Negative : < 1000 ng/mL 12/18/2021 5:21 AM BOOT TRIMMER [facility] Comment: Positive urine amphetamine screening results should be confirmed by another generally accepted non-immunological method such as gas chromatography or mass spectrometry. ? Barbiturates Screen Urine Negative Negative : < 200 ng/mL 12/18/2021 5:21 AM [facility] Benzodiazepine Screen Urine Negative Negative : < 200 ng/mL 12/18/2021 5:21 AM [facility] Opiates Urine Positive(A) Negative : < 300 ng/mL 12/18/2021 5:21 AM [facility] Comment:Positive urine opiat e screening results should be confirmed by another generally accepted non-immunological method such as gas chromatography or mass spectrometry. Cocaine Metabolites Urine Negative Negative : < 300 ng/mL 12/18/2021 5:21 AM [facility] Phencyclidine Screen Urine Negative Negative : < 25 ng/ml 12/18/2021 5:21 AM [facility] Cannabinoids Screen Urine Positive(A) Negative : <50 ng/mL 12/18/2021 5:21 AM [facility] Comment:Positive urine canna binoids (THC) screening results should be confirmed by another generally accepted non-immunological method such as gas chromatography or mass spectrometry. Methadone Screen Urine Negative Negative : < 300 ng/mL 12/18/2021 5:21 AM [facility] Fentanyl Screen Urine Positive(A) Negative : <1.0 ng/mL 12/18/2021 5:21 AM [facility] Comment:Positive urine fenta nyl screening results should be confirmed by another generally accepted non-immunological method such as gas chromatography or mass spectrometry. Urine URINE / Unknown Collection / Unknown 12/18/2021 4:57 AM [facility] 12/18/2021 4:59 AM [facility] - 12/18/2021 5:21 AM [facility] The Urine Toxicology Screening Panel does not screen for Propoxyphene, Meprobamate, Carisoprodol, Trazodone, mjfs-cme-yjxelle medications and/or volatiles (Acetone, Isopropanol, Methanol or Ethylene Glycol). Ethanol, Salicylate, Acetaminophen, Tricyclic Antidepressants and several therapeutic drugs may be individually assayed in serum or plasma specimen. Toxicology testing by the [facility] is an aid to medical diagnosis and treatment of patients. No documented chain of custody was maintained. Results are intended to be used for clinical purposes only. ? Lima Thompson MD LAB - URINE CHEMISTR Y ORDERABLES Performing Organization Address [facility] de Phone Number [facility] [address] [place] [address], [facility] [phone] * BLOOD TYPE VERIFICATION (12/18/2021 4:44 AM BOOT TRIMMER) [facility] ABO Rh B POS 12/18/2021 5:1 9 AM [facility] Blood Bank BLOOD SPECIMEN / Unknown Lab Venipuncture / Unknown 12/18/2021 4:44 AM BOOT TRIMMER 12/18/2021 4:51 AM BOOT TRIMMER Lima Thompson MD LAB - BLOOD BANK ORD ERABLES Performing Organization Address [facility] de Phone Number [facility] [address] [place] [address], [place] [phone] * SARS-COV-2 (COVID-19)+INFLU A+B PCR RAPID (12/18/2021 4:17 AM BOOT TRIMMER) [facility] COVID-19 PCR Not detected Not detected 12/18/19 6:44 AM [facility] Influenza A Rapid MISAEL Not Detected Not Detected 12/18/2021 6:44 AM [facility] Influenza B MISAEL Rapid Not Detected Not Detected 12/18/2021 6:44 AM BOOT TRIMMER [facility] Microbiology SPECIMEN FROM NASOPHARYNGEAL STRUCTURE / Unknown Collection / Unknown 12/18/2021 4:17 AM BOOT TRIMMER 12/18/2021 6:15 AM BOOT TRIMMER Narrative [facility] - 12/18/2021 6:44 AM BOOT TRIMMER Influenza assay performed by [employer]. [...] acid amplification assay performance was validated by [facility]. This test has been authorized by [...] Thompson MD LAB - MICROBIOLOGY O RDERABLES [facility] [address] [place] [address], [facility] [phone] * TYPE + SCREEN PANEL (12/18/2021 4:17 AM BOOT TRIMMER) Antibody Screen NEG 5:14 AM BOOT TRIMMER [facility] ABO Rh B POS 12/18/2021 5:14 AM BOOT TRIMMER [facility] Blood Bank BLOOD SPECIMEN / Unknown Venipuncture / Unknown 12/18/2021 4:17 AM BOOT TRIMMER 12/18/2021 4:29 AM BOOT TRIMMER Lima Thompson MD LAB - BLOOD BANK ORD ERABLES [facility] [address] [place] [address], [facility] [phone] * XR PELVIS W LEFT HIP 2VW (12/17/2021 11:05 PM BOOT TRIMMER) Anatomical Region Laterality Modality Pelvis Radiographic Юлия ging 12/17/2021 11:0 6 PM BOOT TRIMMER Impressions 12/18/2021 10:05 AM BOOT TRIMMER IMPRESSION: Superolaterally displaced fracture of the left femoral neck. Report dictated by Shama Landry M.D. (president consumer electronics company). I, Dr. ALO VAZQUEZ MD, FR have personally reviewed and interpreted this examination/study. This report was electronically signed by ALO VAZQUEZ MD, FRCR ??on 12/18/2021 10:05 AM . Narrative 12/18/2021 10:05 AM BOOT TRIMMER EXAMINATION: XR PELVIS W LEFT HIP 2VW [...] neck. Report dictated by Shama Landry M.D. (president consumer electronics company). IDr. ALO MD, [facility] have personally reviewedand interpreted this examination/study. This report was electronically signed by ALO VAZQUEZ MD, [facility] on 12/18/2021 10:05 AM . Lima Thompson MD DIAGNOSTIC IMAGING O RDERABLES * TIFFANY BLOOD SCREEN W/REFLEX TITER (10/01/2021 11:38 AM BOOT TRIMMER) TIFFANY IgG None Detected None Detected 10/04/2021 12:34 AM BOOT TRIMMER [facility] ([facility]) Comment: If suspicion of connective tissue disease is strong and TIFFANY EIA is negative, consider testing for TIFFANY by IFA ([id number]). INTERPRETIVE INFORMATION: Anti-Nuclear Antibodies (TIFFANY), IgG by SAVANNAH Antinuclear Antibodies (TIFFANY), IgG by SAVANNAH: TIFFANY specimens are screened using enzyme-linked immunosorbent assay (SAVANNAH) methodology. All SAVANNAH results reported as Detected are further tested by indirect fluorescent assay (IFA) using HEp-2 substrate with an IgG-specific conjugate. The TIFFANY SAVANNAH screen is designed to detect antibodies against dsDNA, histones, SS-A (Ro), SS-B (La), Clayton, Clayton/BALER OPERATOR, Scl-70, Nuris-1, centromeric proteins, other antigens extracted from the HEp-2 cell nucleus. TIFFANY SAVANNAH assays have been reported to have lower sensitivities than TIFFANY IFA for systemic autoimmune rheumatic diseases (SARD). Negative results do not necessarily rule out SARD. Performed By: [email or web address] [address] [place] [address] Tariff Compiling Clerk: Ivanna Ballard MD Blood BLOOD SPECIMEN / Unknown Lab Venipuncture / Unknown 10/01/2021 11:38 AM BOOT TRIMMER 10/01/2021 11:45 AM BOOT TRIMMER Amos Pabon MD LAB - CHEMISTRY KURT ZARAGOZA [facility] Organization Address City/State/ZIP Co de Phone Number [facility]) [address] [place] [address], [facility] * [id number] BLOOD (10/01/2021 11:38 AM BOOT TRIMMER) Wpool-8-Mlhhjo ypsin 159 90 - 200 mg/dL 10/01/2021 12:55 PM [facility] Blood BLOOD SPECIMEN / Unknown Lab Venipuncture / Unknown 10/01/2021 11:38 AM BOOT TRIMMER 10/01/2021 11:46 AM BOOT TRIMMER Amos Pabon MD LAB - CHEMISTRY KURT ZARAGOZA Performing Organization Address City/[facility]/ZIP Co de Phone Number [address] [address], [facility] [phone] * (ABNORMAL) IRON BLOOD (10/01/2021 11:38 AM BOOT TRIMMER) Pathologist [facility] Iron 17(L) 50 - 175 ug/dL 10/01/2021 12:55 PM [facility] Blood BLOOD SPECIMEN / Unknown Lab Venipuncture / Unknown 10/01/2021 11:38 AM BOOT TRIMMER 10/01/2021 11:46 AM BOOT TRIMMER Amos Pabon MD LAB - CHEMISTRY KURT ZARAGOZA Performing Organization Address [facility] Co de Phone Number [address] [address], [facility] [phone] * (ABNORMAL) HEPATITIS B SURFACE ANTIBODY (10/01/2021 11:38 AM BOOT TRIMMER) Pathologist [facility] Hepatitis B Virus Surface Antibody Reactive( A) Non-react young 10/01/2021 1:14 PM [facility] Comment: > 12 mIU/mL Hepatitis B surface Antibody (HBsAb). Reactive for HBsAb - individual is considered immune to Hepatitis B Virus infection. Hepatitis B Surface Antibody Quantitative 50.9(H) <8.0 mIU/mL 10/01/2021 1:14 PM [facility] Comment: Hepatitis B Surface Antibody Numeric Result Interpretation: ? Nonreactive: ?<8.0 mIU/mL ? Indeterminate: ??8.0 - 12.0 mIU/mL ? Reactive: ?>12.0 mIU/mL ? Blood BLOOD SPECIMEN / Unknown Lab Venipuncture / Unknown 10/01/2021 11:38 AM BOOT TRIMMER 10/01/2021 11:46 AM BOOT TRIMMER Amos Pabon MD LAB - CHEMISTRY KURT ZARAGOZA Performing Organization Address City/[facility]/ZIP Co de Phone Number [address] [address], [place] [phone] * HEPATITIS B CORE ANTIBODY (10/01/2021 11:38 AM BOOT TRIMMER) HBc Antibody Total Non-reacti ve Non-reacti ve 10/01/2021 1:14 PM BOOT TRIMMER [facility] Blood BLOOD SPECIMEN / Unknown Lab Venipuncture / Unknown 10/01/2021 11:38 AM BOOT TRIMMER 10/01/2021 11:46 AM BOOT TRIMMER Amos Pabon MD LAB - CHEMISTRY KURT ZARAGOZA Performing Organization Address [facility] Co de Phone Number [address] [address], [place] [phone] * HEPATITIS B SURFACE ANTIGEN W RFLX CONFIRMATION (10/01/2021 11:38 AM BOOT TRIMMER) Hepatitis B Virus Surface Antigen Non-reacti ve Non-reacti ve 10/01/2021 1:14 PM BOOT TRIMMER [facility] Blood BLOOD SPECIMEN / Unknown Lab Venipuncture / Unknown 10/01/2021 11:38 AM BOOT TRIMMER 10/01/2021 11:46 AM BOOT TRIMMER Amos Pabon MD LAB - CHEMISTRY KURT ZARAGOZA Performing Organization Address City/[facility] Co de Phone Number [address] [address], [place] [phone] * (ABNORMAL) IGG BLOOD (10/01/2021 11:38 AM BOOT TRIMMER) Pathologist [facility] IgG 2,513(H) 767-1,590 mg/dL 10/01/2021 12:55 PM BOOT TRIMMER [facility] Blood BLOOD SPECIMEN / Unknown Lab Venipuncture / Unknown 10/01/2021 11:38 AM BOOT TRIMMER 10/01/2021 11:46 AM BOOT TRIMMER Amos Pabon MD LAB - CHEMISTRY KURT ZARAGOZA Performing Organization Address City/[facility]/ZIP Co de Phone Number [address] [address], [facility] [phone] * HEPATITIS C ANTIBODY (10/01/2021 11:38 AM BOOT TRIMMER) [facility] Hepatitis C Antibody Non-react young Non-reac tive 10/01/2021 1:14 PM BOOT TRIMMER [facility] Comment:Hepatitis C Antibody screen indicates [...] Lab Venipuncture / Unknown 10/01/2021 11:38 AM BOOT TRIMMER 10/01/2021 11:46 AM BOOT TRIMMER Amos Pabon MD LAB - CHEMISTRY KURT ZARAGOZA Performing Organization Address [facility] Co de Phone Number [address] [address], [facility] [phone] * (ABNORMAL) HEPATITIS A ANTIBODY (10/01/2021 11:38 AM BOOT TRIMMER) [facility] Hepatitis A Virus Antibody Total Positive( A) Negative 10/03/2021 5:38 PM BOOT TRIMMER [facility] ([facility]) Comment: The positive anti-HAV is consistent with recent or remote Hepatitis A infection or antibody response to HAV vaccination. False positive anti-HAV can occur. Performed by [email or web address], [address] [place] [id number] [email or web address], Ivanna Ballard MD, Lab. Director Blood BLOOD SPECIMEN / Unknown Lab Venipuncture / Unknown 10/01/2021 11:38 AM BOOT TRIMMER 10/01/2021 11:45 AM BOOT TRIMMER Amos Pabon MD LAB - CHEMISTRY KURT ZARAGOZA [facility]) [address] * (ABNORMAL) FERRITIN (10/01/2021 11:38 AM BOOT TRIMMER) Ferritin 19(L) 22 - 275 ng/mL 10/01/2021 1:14 PM BOOT TRIMMER [facility] Blood BLOOD SPECIMEN / Unknown Lab Venipuncture / Unknown 10/01/2021 11:38 AM BOOT TRIMMER 10/01/2021 11:46 AM BOOT TRIMMER Amos Pabon MD LAB - CHEMISTRY KURT ZARAGOZA [facility] [address] [place] [address], [facility] [phone] Care Teams Digital Media Director Relationship Specialty Start Date End Date Teodoro Lopez PCP - General 05/17/24 Eric Oconnell MD Hospitalist 10/10/21
--- OUTSIDE RECORDS SUMMARY | 2024-10-19 23:36 | XMS_ITS | Encounter Summary ---
Author Organization [facility] Address [address] [place] [address] Care Team Providers Care Clinical Manager Home Care Name Role Phone Eric Oconnell MD Unavailable [phone] Gregorio James MD Primary Care Provider [phone] Reason for Visit * Reason Onset Date Comments Medication Issue 05/02/2024 Encounter Details Date Type Department Care Team (Late st Contact Info) Description 05/02/2024 Telephone [facility] [place] [address] [place] [address], [place] [phone] Amos Pabon MD [address] [place] [address] [place] [address] Medication Issue Social History Tobacco Use Types [...] st Contact Info) Description 11/29/2024 8:30 AM TECHNICIAN AUTOMATED EQUIPMENT Office Visit [facility] - Orthopedic Surgery [address] [facility] [address] Toño Cabrera MD 1031 [facility] 280 [place] [address] 01/08/2025 8:00 AM CDT Appointment [facility] 1201 [place] [phone] 01/08/2025 9:00 AM CDT Office Visit [facility] [place] [address] [place] [address], [place] [phone] Amos Pabon MD [address] [place] [address] [place] [address] documented as of this encounter Goals Goal [...] on filedocumented in this encounter Care Teams Clinical Manager Home Care Relationship Specialty Start Date End Date Gregorio James MD [address] [place] [phone] PCP - General 08/11/22 05/16/24 Eric Oconnell MD Hospitalist 10/10/21 documented as of this encounter
--- OUTSIDE RECORDS SUMMARY | 2024-10-19 23:36 | XMS_ITS | Encounter Summary ---
Author Organization [facility] Address [address] [facility] [place] [address] Care Team Providers Care Hair Clipper Power Name Role Phone Eric Oconnell MD Unavailable [phone] Teodoro Lopez Primary Care Provider Unavailabl e Reason for Visit * Reason Comments Medication Issue Encounter Details Date Type Department Care Team (Late st Contact Info) Description 05/24/2024 Telephone [facility] [place] [address] [place] [address], [place] [phone] Amos Pabon MD [address] [place] [address] [place] [address] Medication Issue Social History Tobacco Use Types [...] Xifaxan since before February 2024 due to usp stating not needing it because he takes Lactulose. Patient resides in [facility] P# [phone], F# [phone]. This nurse spoke with ALFREDO Jaramillo who stated PA was denied and patient was kept on Lactulose for HE. This nurse inquired if patient has applied for the Xifaxan assistance program. Nurse stated uncertainty however if approved a new order will need to be sent to [facility] in [facility]. Please reach out to Ella with an update. documented in this encounter Miscellaneous Notes * Telephone Encounter - Meenu Rojo, [facility] - 06/01/2024 9:00 AM CDT The prior authorization for Xifaxan has been approved; the insurance decision letter is scanned into media. This television script writer then [facility] ([phone]) and spoke with Amelie to notify staff of the PA approval. She requested that I fax the insurance determination letter to the facility ([phone]) and once received they will reach out to the Pharmacy to process the script. Medication Prior Authorization Medication: Xifaxan 550 mg tablet; #60 per 30 days Diagnosis Code: K76.82 (hepatic encephalopathy) Status: APPROVED THROUGH 11-27-2024 Submitted via: Cover My Meds (Daily:[email or web address]) Insurance: [employer] / [employer] Medicare Helpdesk: [phone] Amos Pabon, Franchesca Stuart RN, Kay Lambert RN * Telephone Encounter - Meenu Rojo RPhT - 05/31/2024 12:11 PM CDT This television script writer initiated and submitted a prior authorization to the patient's insurance for Xifaxan via CoverMyMeds. Pending insurance response; I will update status when available. Medication Prior Authorization Medication: Xifaxan 550 mg tablet; #60 per 30 days Diagnosis Code: K76.82 (hepatic encephalopathy) Status: Submitted - Pending Submitted via: Cover My Meds (Daily:[id number]) Insurance: [employer] / [employer] Medicare Case Number: n/a Helpdesk: [phone] Message routed to Maribel Garg RN documented in this encounter Plan of Treatment Upcoming Encounters Date Type Department Care Team (Late st Contact Info) Description 11/29/2024 8:30 AM INFORMATION TECHNOLOGY SECURITY ANALYST Office Visit [facility] - Orthopedic Surgery 1031 [place] [address] Toño Cabrera MD [address] [address] 01/08/2025 8:00 AM CDT Appointment [address] [phone] 01/08/2025 9:00 AM CDT Office Visit [facility] 1225 [facility], [place] [address] Amos Pabon MD [facility] [place] [address] documented as of this encounter Goals Goal [...] on filedocumented in this encounter Care Teams Hair Clipper Power Relationship Specialty Start Date End Date Teodoro Lopez PCP - General 05/17/24 Eric Oconnell MD Hospitalist 10/10/21 documented as of this encounter
--- OUTSIDE RECORDS SUMMARY | 2024-10-19 23:36 | XMS_ITS | Encounter Summary ---
Author Organization [facility] Address [address] [facility] [place] [address] Care Team Providers Care Venetian Blind Machine Operator Name Role Phone Eric Oconnell MD Unavailable [phone] Raya Carty PA-C Primary Care Provider Reason for Visit * Auth/Cert Specialty Diagnoses / Procedures Referred By Rod young Referred To Contact Diagnoses Chronic gastric ulcer without hemorrhage and without perforation Procedures IN ED EGD FLEX TRANSORAL DX IN EGD FLEX TRANSORAL W BX SNGL OR MULT ESOPHAGOGASTRODUODENOSCOPY (EGD) DIAGNOSTIC Referral ID Status Reason Start Date Expiration Date Visits Re quested Visits Authorized [id number] 1 1 Encounter Details Date Type Department Care Team (Latest Contact Info) Description 06/18/2022 8:13 AM CDT - 06/18/2022 10:51 AM CDT Hospital Encounter [facility] 12[address] [place] [address] Amos Pabon MD 1225 [facility] 2L [place] [address] Gastroenterology Discharge Disposition: Other Facility Not Defined [...] Discharge Instructions * Discharge Instructions* Regla Garcia, ALFRDEO - 06/18/2022 10:00 AM CDT Images from [...] ask them during your visits. ?? Copyright wufoo 2020 Information is for End User's use only and may not be sold, redistributed or otherwise used for commercial purposes. All illustrations and images included in CareNotes?? are the copyrighted property of My [employer] or StayTuned The above information is an environmental health aide only. It is not intended as [...] noted. Dictated by Stanley Joyce MD (radiology services manager). I, Dr. ALO HEMPHILL MD, FRCR havepersonally reviewed and interpreted this examination/study. This report was electronically signed by ALO HEMPHILL MD, FRCR on 12/18/2021 10:34 AM . US ABDOMEN LIMITED Result Date: 10/21/2021 IMPRESSION: 1.Hepatic cirrhosis with sequela of portal hypertension (recanalization of the umbilical vein) without discrete hepatic lesion. 2.Splenomegaly. 3.No evidence of cholelithiasis or acute cholecystitis. Dictated by Lawrence Meyers D.O. (Supervisor Coke Handling) Dr. CLIFFORD Anton M.D. have pers onally [...] Report dictated by Shama Landry M.D. (radiology services manager). IDr. ALO MD, [facility] have personally reviewed and interpreted this examination/study. This report was electronically signed by ALO HEMPHILL MD, [facility] on 12/18/2021 10:05 AM . Physicial [...] Hepatology Fellow Division of Gastroenterology and Hepatology [facility] documented in this encounter Plan of Treatment Upcoming Encounters Date Type Department Care Team (Late st Contact Info) Description 11/29/2024 8:30 AM MANAGER EMBALMER FUNERAL DIRECTOR Office Visit [facility] - Orthopedic Surgery [address] [facility] [place] [address] Toño Cabrera MD 1031 [facility] 280 [place] [address] 01/08/2025 8:00 AM CDT Appointment [facility] 1201 [place] [address] 01/08/2025 9:00 AM CDT Office Visit [facility] 1225 [facility], [place] [phone] Amos Pabon MD [address] [place] [address] [place] [address] documented as of this encounter Goals Goal [...] Name Priority Date/Time Associated Diagnosis Comments IN ED EGD FLEX TRANSORAL DX 06/18/2022 9:18 [...] Procedure Code(s): ? --- Professional --- ? 19332, Esophagogastroduode noscopy, flexible, transoral; diagnostic, ? including collection of specimen(s) by brushing or washing, when ? 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 All rights reserved. The codes documented in this report are preliminary and upon refrigerator repairman review may be revised to meet current compliance requirements. Amos Pabon, 06/18/2022 9:47:50 AM Note Initiated On: 06/18/2022 9:04 AM Number of Addenda: 0 ? [facility] ? [address] [place], [place] [phone] [place] [address] PROVATION 06/18/2022 9:04 AM CDT Amos Pabon MD GI PROCEDURE ORDERAB LES [facility] documented in this encounter Visit Diagnoses [...] (GI) documented in this encounter Care Teams Venetian Blind Machine Operator Relationship Specialty Start Date End Date Raya Carty PA-C [address] [place] [phone] PCP - General 06/09/22 07/05/22 Eric Oconnell MD Hospitalist 10/10/21 documented as of this encounter
--- OUTSIDE RECORDS SUMMARY | 2024-10-19 23:36 | XMS_ITS | Encounter Summary ---
Author Organization [facility] Address [address] [place] [address] Care Team Providers Care Mediator Name Role Phone Eric Oconnell MD Unavailable [phone] Gregorio James MD Primary Care Provider [phone] Encounter Details Date Type Department Care Team [...] st Contact Info) Description 11/29/2024 8:30 AM CAP MAKER Office Visit [facility] - Orthopedic Surgery 1031 [place] [address] Toño Cabrera MD [address] [address] 01/08/2025 8:00 AM CDT Appointment [facility] 1201 [place] [phone] 01/08/2025 9:00 AM CDT Office Visit [facility] 1225 [facility], [place] [phone] Amos Pabon MD [address] [place] [address] [place] [address] documented as of this encounter Goals Goal [...] on filedocumented in this encounter Care Teams Mediator Relationship Specialty Start Date End Date Gregorio James MD [address] [place] [phone] PCP - General 08/11/22 05/16/24 Eric Oconnell MD Hospitalist 10/10/21 documented as of this encounter
--- OUTSIDE RECORDS SUMMARY | 2024-10-19 23:36 | XMS_ITS | Encounter Summary ---
Author Organization [facility] Address [address] [facility] [place] [address] Care Team Providers Care Data Migration Consultant Name Role Phone Eric Oconnell MD Unavailable [phone] Raya Carty PA-C Primary Care Provider Reason for Visit * Auth/Cert Specialty Diagnoses / Procedures Referred By Rod t Referred To Contact Diagnoses Chronic gastric ulcer without hemorrhage and without perforation Procedures [facility] ED EGD FLEX TRANSORAL DX [facility] EGD FLEX TRANSORAL W BX SNGL OR MULT ESOPHAGOGASTRODUODENOSCOPY (EGD) DIAGNOSTIC Referral ID Status Reason Start Date Expiration Date Visits Re quested Visits Authorized [id number] 1 1 Encounter Details Date Type Department Care Team (Late st Contact Info) Description 06/18/2022 9:00 AM CDT - 06/18/2022 9:30 AM CDT Surgery [facility] ENDOSCOPY 1201 [place] [address] Amos Pabon MD [facility] [place] [address] EGD Surgery Details Date/Time Status Location OR Service Patient Class Case Class Case Type Trauma Case? 06/18/2022 9:00 AM Posted [facility] Endoscopy ENDO 4 Gastroenterology Surgery Day Care [...] ask them during your visits. ?? Copyright [employer] 2020 Information is for End User's use only and may not be sold, redistributed or otherwise used for commercial purposes. All illustrations and images included in CareNotes?? are the copyrighted property of [employer] or Game[employer]etics The above information is an ward aide only. It is not intended as [...] is noted. Dictated by Stanley Joyce MD (campus president). I, Dr. ABDYOSEF HEMPHILL MD, FRCR havepersonally [...] cholecystitis. Dictated by Lawrence Meyers D.O. (Supervisor Reactor Fueling) Dr. CLIFFORD Anton M.D. have pers onally [...] This report was electronically signed by JANAE MCUDFFIE MD on 12/18/2021 8:00 AM . XR PELVIS W LEFT HIP 2VW Result Date: 12/18/2021 IMPRESSION: Superolaterally displaced fracture of the left femoral neck. Report dictated by hSama Landry M.D. (campus president). Dr. ALO Anton MD, FRCR have personally [...] Hepatology [facility] documented in this encounter Plan of Treatment Upcoming Encounters Date Type Department Care Team (Late st Contact Info) Description 11/29/2024 8:30 AM INSIDE SALES ACCOUNT EXECUTIVE Office [facility] - Orthopedic Surgery [address] [place] [phone] Toño Cabrera MD 1031 [facility] 280 [place] [address] 01/08/2025 8:00 AM CDT Appointment [address] [phone] 01/08/2025 9:00 AM CDT Office [facility] - GI 1225 [facility], [place] [phone] Amso Pabon MD [address] [place] [address] [place] [address] documented as of this encounter Goals Goal [...] Procedure Name Priority Date/Time Associated Diagnosis Comments [facility] ED EGD FLEX TRANSORAL DX 06/18/2022 9:18 [...] Procedure Code(s): ? --- Professional --- ? 35905, Esophagogastroduode noscopy, flexible, transoral; diagnostic, ? including collection of specimen(s) by brushing or washing, when ? 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 All rights reserved. The codes documented in this report are preliminary and upon investigations director review may be revised to meet current compliance requirements. Amos Pabon, 06/18/2022 9:47:50 AM Note Initiated On: 06/18/2022 9:04 AM Number of Addenda: 0 ? [facility] ? [address] [place], [place] [address] [place] [address] PROVATION 06/18/2022 9:04 AM CDT Amos Pabon MD GI PROCEDURE ORDERAB LES [facility] PROVJESUS documented in this encounter Visit Diagnoses [...] (GI) documented in this encounter Care Teams Data Migration Consultant Relationship Specialty Start Date End Date Raya Carty PA-C [address] [place] [phone] PCP - General 06/09/22 07/05/22 Eric Oconnell MD Hospitalist 10/10/21 documented as of this encounter
--- OUTSIDE RECORDS SUMMARY | 2024-10-19 23:36 | XMS_ITS | Encounter Summary ---
Author Organization [facility] Address [address] [facility] [place] [address] Care Team Providers Care Slp Name Role Phone Eric Oconnell MD Unavailable [phone] Gregorio James MD Primary Care Provider [phone] Reason for Visit * Reason Onset Date Comments Follow-up 03/15/2024 Encounter Details Date Type Department Care Team (Late st Contact Info) Description 03/15/2024 Telephone [facility] - Nephrology 1225 [facility] [place] [address] Ellyn Payne RN Follow-up Social History Tobacco [...] st Contact Info) Description 11/29/2024 8:30 AM DEPUTY DIRECTOR OF PUBLIC WORKS Office Visit [facility] - Orthopedic Surgery [address] [facility] [address] Toño Cabrera MD 1031 [facility] 280 [place] [address] 01/08/2025 8:00 AM CDT Appointment [facility] 1201 [place] [address] 01/08/2025 9:00 AM CDT Office Visit [facility] - GI 1225 [facility] [place] [place] [phone] Amos Pabon MD [address] [place] [address] documented as of this encounter Goals Goal [...] on filedocumented in this encounter Care Teams Slp Relationship Specialty Start Date End Date Gregorio James MD [address] [place] [phone] PCP - General 08/11/22 05/16/24 Eric Oconnell MD Hospitalist 10/10/21 documented as of this encounter
--- OUTSIDE RECORDS SUMMARY | 2024-10-19 23:36 | XMS_ITS | Encounter Summary ---
Author Organization [facility] Address [address] [facility] [place] [address] Care Team Providers Care Inventory Planner Name Role Phone Eric Oconnell MD Unavailable [phone] Gregorio James MD Primary Care Provider [phone] Reason for Referral * Radiology Services (Routine) - Closed Specialty Diagnoses / Procedures Referred By Rod young Referred To Contact Ultrasound Diagnoses Cirrhosis of liver with ascites, unspecified hepatic cirrhosis type (HCC) Procedures US ABDOMEN LIMITED Klarissa Rutledge APRN-CNP 1225 [facility] 3[place] [address] [address] Referral ID Status Reason Start Date Expiration Date Visits Re quested Visits Authorized [id number] Closed 02/19/2023 02/19/2024 1 1 Reason for Visit * Radiology Services (Routine) - Closed Specialty Diagnoses / Procedures Referred By Contmegan young Referred To Contact Ultrasound Diagnoses Cirrhosis of liver with ascites, unspecified hepatic cirrhosis type (HCC) Procedures US ABDOMEN LIMITED Klarissa Rutledge APRN-CNP [address] [facility] 3[place] [address] [facility] [place] [address] Referral ID Status Reason Start Date Expiration Date Visits Re quested Visits Authorized [id number] Closed 02/19/2023 02/19/2024 1 1 Encounter Details Date Type Department Care Team (Tracy st Contact Info) Description 08/25/2023 7:53 AM CDT - 08/25/2023 11:59 PM CDT Hospital Encounter [facility] 1201 [place] [address] Klarissa Rutledge, AGENCY SALES MANAGEMENT ASSISTANT-JUSTICE COURT JUDGE 1225 [facility] [place] [address] Discharge Disposition: Home or Self Care Social [...] st Contact Info) Description 11/29/2024 8:30 AM TILE DITCHER Office Visit [facility] - Orthopedic Surgery 1031 [place] [address] Toño Cabrera MD 10[address] [facility] 280 [place] [address] 01/08/2025 8:00 AM CDT Appointment [facility] 1201 [place] [phone] 01/08/2025 9:00 AM CDT Office Visit [facility] - GI 1225 [facility], [place] [phone] Amos Pabon MD [address] [place] [address] [place] [address] documented as of this encounter Goals Goal [...] months. Report dictated by Hany Cornelius MD, (optometrist president/practice owner). I, Bina Perez MD have personally reviewed and interpreted this examination/study. > Interpreting Provider: Bina Perez MD on 08/25/2023 10:18 AM Narrative 08/25/2023 10:18 AM CDT PROCEDURE: ??US ABDOMEN LIMITED, DATE/TIME OF EXAM: ??08/25/2023 7:53 AM, LOCATION ??[facility] INDICATION: K74.60: Cirrhosis of liver with [...] DATE/TIME OF EXAM: 08/25/2023 7:53 AM, LOCATION [facility] INDICATION: K74.60: Cirrhosis of liver with [...] months. Report dictated by Hany Cornelius MD, (optometrist president/practice owner). I, Bina Perez MD have personally reviewed and interpreted this examination/study. > Interpreting Provider: Bina Perez MD on 08/25/2023 10:18 AM Klarissa Rutledge AGENCY SALES MANAGEMENT ASSISTANT-JUSTICE COURT JUDGE US ORDERABL ES documented in this encounter Visit Diagnoses Diagnosis Cirrhosis of liver with ascites, unspecified hepatic cirrhosis type (HCC) documented in this encounter Care Teams Inventory Planner Relationship Specialty Start Date End Date Gregorio James MD [address] [place] [phone] PCP - General 08/11/22 05/16/24 Eric Oconnell MD Hospitalist 10/10/21 documented as of this encounter
--- OUTSIDE RECORDS SUMMARY | 2024-10-19 23:36 | XMS_ITS | Encounter Summary ---
Author Organization [facility] Address [address] [facility] [place] [address] Care Team Providers Care Radiology Practitioner Assistant Name Role Phone Eric Oconnell MD Unavailable [phone] Teodoro Lopez Primary Care Provider Unavailabl e Reason for Referral * Radiology Services (Routine) - Open Specialty Diagnoses / Procedures Referred By Contac t Referred To Contact Diagnoses Cirrhosis of liver with ascites, unspecified hepatic cirrhosis type (HCC) Procedures US Abdomen Limited Amos Pabon MD [address] [place] [address] 2L [place] [address] Referral ID Status Reason Start Date Expiration Date Visits Re quested Visits Authorized [id number] Open 06/06/2024 06/06/2025 1 1 Encounter Details Date Type Department Care Team (Late st Contact Info) Description 06/06/2024 Orders Only [facility] [address] [place] [address], [place] [address] Amos Pabon MD [address] [place] [address] 2[address] [place] [address] Cirrhosis of liver with ascites, [...] st Contact Info) Description 11/29/2024 8:30 AM TABLE COVER FOLDER Office [facility] [address] [facility] [place] [address] Toño Cabrera MD 1031 [facility] 280 [place] [address] 01/08/2025 8:00 AM CDT Appointment [facility] 1201 [place] [address] 01/08/2025 9:00 AM CDT Office Visit [facility] - 1225 [facility] [place] [address] Amos Pabon MD [address] [place] [address] Scheduled Orders Name Type Priority Associated Diagnoses [...] Primary documented in this encounter Care Teams Radiology Practitioner Assistant Relationship Specialty Start Date End Date Teodoro Lopez PCP - General 05/17/24 Eric Oconnell MD Hospitalist 10/10/21 documented as of this encounter
--- OUTSIDE RECORDS SUMMARY | 2024-10-19 23:36 | XMS_ITS | Encounter Summary ---
Author Organization [facility] Health Address [address] [facility] [place] [address] Care Team Providers Care Medical Health Researcher Name Role Phone Eric Oconnell MD Unavailable [phone] Raya Carty PA-C Primary Care Provider Encounter Details Date Type Department Care Team (Late st Contact Info) Description 06/19/2022 Patient Outreach [facility] [address] [place] [phone] Kaila Charlton, ALFREDO Social History Tobacco Use [...] st Contact Info) Description 11/29/2024 8:30 AM RELIEF MASTER Office Visit [facility] - Orthopedic Surgery 10[address] [place] [address] Toño Cabrera MD [address] [address] 01/08/2025 8:00 AM CDT Appointment [facility] 12[address] [place] [address] 01/08/2025 9:00 AM CDT Office Visit [facility] - GI 1225 [facility], [place] [address] Amos Pabon MD [address] [place] [address] [place] [address] documented as of this encounter Goals Goal [...] filedocumented in this encounter Care Teams Medical Health Researcher Relationship Specialty Start Date End Date Raya Carty PA-C [address] [place] [address] PCP - General 06/09/22 07/05/22 Eric Oconnell MD Hospitalist 10/10/21 documented as of this encounter
--- OUTSIDE RECORDS SUMMARY | 2024-10-19 23:36 | XMS_ITS | Encounter Summary ---
Author Organization [facility] Address [address] [facility] [place] [address] Care Team Providers Care Process Checker Name Role Phone Eric Oconnell MD Unavailable [phone] Teodoro Lopez Primary Care Provider Unavailabl e Reason for Visit * Reason Comments Refill Request Encounter Details Date Type Department Care Team (Late st Contact Info) Description 06/01/2024 Refill [facility] - [address] [phone] Nahed Quinonez, ALFREDO Refill Request Social History [...] st Contact Info) Description 11/29/2024 8:30 AM WHITE HAT HACKER [facility] [address] [place] [address] Toño Cabrera MD [address] [address] 01/08/2025 8:00 AM CDT Appointment [facility] 1201 [place] [address] 01/08/2025 9:00 AM CDT Office Visit [facility] - GI 1225 [facility], [place] [address] Amos Pabon MD [address] [place] [address] [place] [address] documented as of this encounter Goals Goal [...] on filedocumented in this encounter Care Teams Process Checker Relationship Specialty Start Date End Date Teodoro Lopez PCP - General 05/17/24 Eric Oconnell MD Hospitalist 10/10/21 documented as of this encounter
--- OUTSIDE RECORDS SUMMARY | 2024-10-19 23:36 | XMS_ITS | Encounter Summary ---
Author Organization [facility] Address [address] [facility] [place] [address] Care Team Providers Care Automobile Repair Service Estimator Name Role Phone Eric Oconnell MD Unavailable [phone] Raya Carty PA-C Primary Care Provider Reason for Visit * Auth/Cert Specialty Diagnoses / Procedures Referred By Rod young Referred To Contact Diagnoses Chronic gastric ulcer without hemorrhage and without perforation Procedures CA ED EGD FLEX TRANSORAL DX CA EGD FLEX TRANSORAL W BX SNGL OR MULT ESOPHAGOGASTRODUODENOSCOPY (EGD) DIAGNOSTIC Referral ID Status Reason Start Date Expiration Date Visits Re quested Visits Authorized [id number] 1 1 Encounter Details Date Type Department Care Team (Late st Contact Info) Description 06/18/2022 9:13 AM CDT Anesthesia Event [facility] [address] [place] [phone] Madalyn Luna MD [address] [place] [address] [place] [phone] Alicia Garcia, PROCESSOR INSPECTOR-WARD MAID [address] [place] [address] Anesthesia Record Procedure Summary Procedure [...] procedural Anesthetic Plan was discussed with the WARD MAID and sales assistant displays. BMI, Height, Weight Tobacco History Estimated body [...] ??? ENDOSCOPY, UPPER N/A 03/05/2022 N/A; EGD [facility] Status: No LMP for male patient. unknown OB History No obstetric history on file. Covid Vaccine: Lab Results: No results found for requested labs within last 120 days. No results found for requested labs within last 120 days. documented in this encounter Miscellaneous Notes * Anesthesia Transfer of Care - Jose Alicia N, PROCESSOR INSPECTOR-WARD MAID - 06/18/2022 9:42 AM CDT ANESTHESIA TRANSFER [...] report from the receiving PACUteam. Alicia Garcia APRN-WARD MAID documented in this encounter Plan of Treatment Upcoming Encounters Date Type Department Care Team (Late st Contact Info) Description 11/29/2024 8:30 AM CANNING MACHINE OPERATOR Office Visit [facility] - Orthopedic Surgery [address] [place] [phone] Toño Cabrera MD 1031 [facility] 280 [place] [address] 01/08/2025 8:[address] [facility] 1201 [place] [address] 01/08/2025 9:00 AM CDT Office Visit [facility] - GI 1225 [facility], [place] [address] Amos Pabon MD [facility] [address] [place] [address] documented as of this encounter Goals Goal [...] mg documented in this encounter Care Teams Automobile Repair Service Estimator Relationship Specialty Start Date End Date Raya Carty PA-C [address] [place] [address] PCP - General 06/09/22 07/05/22 Eric Oconnell MD Hospitalist 10/10/21 documented as of this encounter
--- OUTSIDE RECORDS SUMMARY | 2024-10-19 23:36 | XMS_ITS | Encounter Summary ---
Author Organization [facility] Health Address [address] [facility] [address] Care Team Providers Care Linen Aide Name Role Phone Eric Oconnell MD Unavailable [phone] Gregorio James MD Primary Care Provider [phone] Reason for Visit * Reason Comments Pain Knee Lt Encounter Details Date Type Department Care Team (Latest Contact Info) Description 06/29/2023 9:00 AM CDT [facility] Visit [facility] - Orthopedic Surgery 10[address] [place] [phone] Toño Cabrera MD [address] [phone] Primary osteoarthritis of left knee (Primary Dx) [...] CDTAssociated Order(s): PROC INJECTION JOINT (SMALL/INTERMED/MAJOR) Procedure(s): WA DRAIN/INJECT LARGE JOINT/BURSA Pre-Procedure Diagnose(s): Primary osteoarthritis of left knee Orthopaedic Surgery Procedure Note Lukas Diaz [id number] Diagnosis: Left knee pain Procedure: Injection of [...] st Contact Info) Description 11/29/2024 8:30 AM SURVEY DIRECTOR Office Visit [facility] - Orthopedic Surgery 1031 [facility] [place] [address] Toño Cabrera MD 1031 [facility] 280 [place] [address] 01/08/2025 8:00 AM CDT Appointment [facility] 1201 [place] [address] 01/08/2025 9:00 AM CDT Office Visit [facility] - GI 1225 [facility], [place] [address] Amos Pabon MD [address] [place] [address] [place] [address] documented as of this encounter Goals Goal [...] Procedure Name Priority Date/Time Associated Diagnosis Comments WA DRAIN/INJECT LARGE JOINT/BURSA Routine 06/29/2023 9:27 AM CDT Primary osteoarthritis of left knee documented in this encounter Results * WA DRAIN/INJECT LARGE JOINT/BURSA (06/29/2023 9:27 AM CDT) Narrative Toño Cabrera MD - 06/29/2023 9:27 AM CDT Toño Cabrera MD ? 06/29/2023 ??3:12 PM Orthopaedic Surgery Procedure Note Lukas Diaz [id number] Diagnosis: Left knee pain Procedure: Injection of [...] Knee documented in this encounter Care Teams Linen Aide Relationship Specialty Start Date End Date Gregorio James MD [address] [place] [phone] PCP - General 08/11/22 05/16/24 Eric Oconnell MD Hospitalist 10/10/21 documented as of this encounter
--- OUTSIDE RECORDS SUMMARY | 2024-10-19 23:36 | XMS_ITS | Encounter Summary ---
Author Organization [facility] Health Address [address] [facility] [place] [address] Care Team Providers Care Microsoft Application Developer Name Role Phone Eric Oconnell MD Unavailable [phone] Raya Carty PA-C Primary Care Provider Reason for Visit * Reason Comments Medication Problem Refill Request Encounter Details Date Type Department Care Team (Late st Contact Info) Description 06/11/2022 Refill [facility] - [address] [facility] [place] [phone] Nahed Quinonez RN Medication Problem; Refill Request [...] st Contact Info) Description 11/29/2024 8:30 AM UPHOLSTERY INSTRUCTOR Office Visit [facility] - Orthopedic Surgery [address] [facility] [place] [address] Toño Cabrera MD 1031 [facility] 280 [place] [address] 01/08/2025 8:00 AM CDT Appointment [facility] 1201 [place] [address] 01/08/2025 9:00 AM CDT Office Visit [facility] - GI 1225 [facility], [place] [address] Amos Pabon MD [address] [place] [address] [place] [address] documented as of this encounter Goals Goal [...] on filedocumented in this encounter Care Teams Microsoft Application Developer Relationship Specialty Start Date End Date Raya Carty PA-C [address] [place] [address] PCP - General 06/09/22 07/05/22 Eric Oconnell MD Hospitalist 10/10/21 documented as of this encounter
--- OUTSIDE RECORDS SUMMARY | 2024-10-19 23:36 | XMS_ITS | Encounter Summary ---
Author Organization [facility] Address [address] [facility] [place] [address] Care Team Providers Care Rocket Engine Tester Name Role Phone Eric Oconnell MD Unavailable [phone] Gregorio James MD Primary Care Provider [phone] Reason for Referral * Radiology Services (Routine) - Closed Specialty Diagnoses / Procedures Referred By Contac t Referred To Contact Diagnoses Cirrhosis of liver with ascites, unspecified hepatic cirrhosis type (HCC) Procedures US ABDOMEN LIMITED Amos Pabon MD [address] [place] [address] [address] [place] [address] [facility] 302 [address] [place] [address] Referral ID Status Reason Start Date Expiration Date Visits Re quested Visits Authorized [id number] Closed 08/16/2023 08/15/2024 1 1 Reason for Visit * Reason Comments Cirrhosis Encounter Details Date Type Department Care Team (Late st Contact Info) Description 08/16/2023 11:30 AM CDT Office Visit [facility] - GI [address] [place] [address], [place] [phone] Amos Pabon MD [address] [place] [address] [address] [place] [address] Cirrhosis of liver with ascites, [...] Ortho. Still in wheelchair and staysat SNF. in home caregiver is his father only. At SNF gets [...] non-lee portions. 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 All rights reserved. The codes documented in this report are preliminary and upon television news video editor review may be revised to meet current compliance requirements. Amos Pabon, 06/18/2022 9:47:50 AM Note Initiated On: 06/18/2022 9:04 AM Number of Addenda: [address] [phone] 03/05/2022 Final Endoscopy Department Report _ Patient Name: Lukas Diaz Procedure Date: 03/05/2022 9:23 AM Date of : 1985 Classification: Outpatient Gender: Male Ethnicity: Not or Race: White _ Providers: Amos Pabon Referring MD: Major Kraft (Referring MD) Procedure: [...] entire procedure. Procedure Code(s): --- Professional --- 57772, Esophagogastroduodenoscopy, flexible, transoral; with biopsy, single or multiple Diagnosis Code(s): --- Professional --- K21.0, Gastro-esophageal reflux disease with esophagitis K22.8, Other specified diseases of esophagus K25.9, Gastric ulcer, unspecified as acute or chronic, without hemorrhage or perforation I85.00, Esophageal varices without bleeding CPT copyright 2019 [employer]. All rights reserved. The codes documented in this report are preliminary and upon television news video editor review may be revised to meet current compliance requirements. Amos Pabon, 03/05/2022 9:59:19 AM Note Initiated On: 03/05/2022 9:23 AM Number of Addenda: [address] [address] Final Diagnosis Date Value Ref Range Status [...] plan: Yes, Amount 31min. Amos Pabon MD screw machine adjuster automatic Gastroenterology and Hepatology Abdominal Organ Transplant [facility] August 16, 2023 documented in this encounter Plan of Treatment Upcoming Encounters Date Type Department Care Team (Late st Contact Info) Description 11/29/2024 8:30 AM CENTRIFUGAL CASTING MACHINE OPERATOR Office Visit [facility] - Orthopedic Surgery [address] [place] [place] [address] Toño Cabrera MD [address] [place] [address] 01/08/2025 8:00 AM CDT Appointment [facility] 12[address] [place] [address] 01/08/2025 9:00 AM CDT Office Visit [facility] - GI 1225 [facility], [place] [phone] Amos Pabon MD [address] [place] [address] [place] [address] Scheduled Orders Name Type Priority Associated Diagnoses [...] Primary documented in this encounter Care Teams Rocket Engine Tester Relationship Specialty [place] [address] [place] [address] PCP - General 08/11/22 05/16/24 Eric Oconnell MD Hospitalist 10/10/21 documented as of this encounter
--- OUTSIDE RECORDS SUMMARY | 2024-10-19 23:36 | XMS_ITS | Encounter Summary ---
Author Organization [facility] Health Address [address] [facility] [place] [address] Care Team Providers Care Tire Duster Name Role Phone Eric Oconnell MD Unavailable [phone] Gregorio James MD Primary Care Provider [phone] Encounter Details Date Type Department Care Team (Late st Contact Info) Description 03/29/2024 Orders Only [facility] CARE COORDINATION [address] [place] [phone] Kristen Dong, [facility] Social History Tobacco Use Types Packs/Day [...] st Contact Info) Description 11/29/2024 8:30 AM MEDICAL RECORDS LIBRARY PROFESSOR [facility] - [facility] 10[address] [place] [address] Toño Cabrera MD [address] [address] 01/08/2025 8:00 AM CDT Appointment [facility] 12[address] [place] [address] 01/08/2025 9:00 AM CDT Office Visit [facility] - GI [address] [facility], [place] [address] Amos Pabon MD [address] [place] [address] [place] [address] documented as of this encounter Goals Goal [...] on filedocumented in this encounter Care Teams Tire Duster Relationship Specialty Start Date End Date Gregorio James MD [address] [address] PCP - General 08/11/22 05/16/24 Eric Oconnell MD Hospitalist 10/10/21 documented as of this encounter
--- OUTSIDE RECORDS SUMMARY | 2024-10-19 23:36 | XMS_ITS | Encounter Summary ---
Author Organization [facility] Address [address] [facility] [place] [address] Care Team Providers Care Endless Bed Drum Sander Name Role Phone Eric Oconnell MD Unavailable [phone] Teodoro Lopez Primary Care Provider Unavailabl e Encounter Details Date Type Department Care Team (Latest Contact Info) Description 05/17/2024 11:00 AM CDT - 05/17/2024 11:59 PM CDT Hospital Encounter [facility] - Orthopedics [address] [place] [address] Toño Cabrera MD [address] [place] [address] Discharge Disposition: Home or Self Care Social [...] mouth 3 times daily 05/28/2023 HYDROcodone-acetaminoph en ([place]) 5-325 MG tablet Take 1 (one) tablet [...] st Contact Info) Description 11/29/2024 8:30 AM TRAVEL TICKETING REVIEWER Office Visit [facility] - Orthopedic Surgery [address] [place] [address] Toño Cabrera MD [address] [place] [address] 01/08/2025 8:00 AM CDT Appointment [facility] 1201 [place] [phone] 01/08/2025 9:00 AM CDT Office Visit [facility] - GI 1225 [facility], [place] [address] Amos Pabon MD [address] DIV [place] [address] documented as of this encounter Goals Goal [...] DATE/TIME OF EXAM: ??05/17/2024 12:11 PM, LOCATION ??[facility] INDICATION: M17.0: Bilateral primary osteoarthritis of knee. [...] DATE/TIME OF EXAM: 05/17/2024 12:11 PM, LOCATION [facility] INDICATION: M17.0: Bilateral primary osteoarthritis of knee. [...] leg documented in this encounter Care Teams Endless Bed Drum Sander Relationship Specialty Start Date End Date Teodoro Lopez PCP - General 05/17/24 Eric Oconnell MD Hospitalist 10/10/21 documented as of this encounter
--- OUTSIDE RECORDS SUMMARY | 2024-10-19 23:36 | XMS_ITS | Encounter Summary ---
Author Organization [facility] Address [address] [facility] [place] [address] Care Team Providers Care Motion Picture Narrator Name Role Phone Eric Oconnell MD Unavailable [phone] Gregorio James MD Primary Care Provider [phone] Reason for Referral * Radiology Services (Routine) - Closed Specialty Diagnoses / Procedures Referred By Rod young Referred To Contact Ultrasound Diagnoses Cirrhosis of liver with ascites, unspecified hepatic cirrhosis type (HCC) Procedures US ABDOMEN LIMITED Klarissa Rutledge APRN-CNP [address] [place] [address] [address] [place] [address] [address] [place] [address] Referral ID Status Reason Start Date Expiration Date Visits Re quested Visits Authorized [id number] Closed 02/19/2023 02/19/2024 1 1 Reason for Visit * Reason Comments Cirrhosis Encounter Details Date Type Department Care Team (Late st Contact Info) Description 02/19/2023 10:30 AM CDT Office Visit [facility] - [address], [place] [phone] Klarissa Rutledge APRN-CNP [address] [place] [address] [address] [place] [address] Cirrhosis of liver with ascites, [...] saw Mr. Diaz in [facility] today for follow up visit regarding: [...] dental work required prior. He resides at [facility] d/t cirrhosis and femur fracture. He had recent hospitalization at [facility] for hallucinations, reportedly auditory and visual hallucinations. [...] 6 months. Copy to: Gregorio James MD [address] [place] [address] EMILY Cisneros [facility] Division of Gastroenterology and Hepatology Collaborating physician: Dr. Amos Pabon February 23, 2023 Orders Placed This Encounter ??? US ABDOMEN LIMITED ??? US ABDOMEN LIMITED ??? CBC WITH DIFFERENTIAL ??? COMPREHENSIVE METABOLIC PANEL ??? ALPHA FETOPROTEIN BLOOD TUMOR MARKER ??? PT-INR documented in this encounter Plan of Treatment Upcoming Encounters Date Type Department Care Team (Late st Contact Info) Description 11/29/2024 8:30 AM DELI MANAGER Office Visit [facility] - [facility]opedic Surgery [address] [facility] [place] [address] Toño Cabrera MD 1031 [facility] 280 [place] [address] 01/08/2025 8:00 AM CDT Appointment [address] [phone] 01/08/2025 9:00 AM CDT Office Visit [facility] - GI [address] [facility], [place] [address] Amos Pabon MD [address] [place] [address] [place] [address] Scheduled Orders Name Type Priority Associated Diagnoses [...] months. Report dictated by Hany Cornelius MD, (founder president and ceo). I, Bina Perez MD have personally reviewed and interpreted this examination/study. > Interpreting Provider: Bina Perez MD on 08/25/2023 10:18 AM Narrative 08/25/2023 10:18 AM CDT PROCEDURE: ??US ABDOMEN LIMITED, DATE/TIME OF EXAM: ??08/25/2023 7:53 AM, LOCATION ??[facility] INDICATION: K74.60: Cirrhosis of liver with ascites, [...] DATE/TIME OF EXAM: 08/25/2023 7:53 AM, LOCATION [facility] INDICATION: K74.60: Cirrhosis of liver with ascites, [...] months. Report dictated by Hany Cornelius MD, (founder president and ceo). I, Bina Perez MD have personally reviewed and interpreted this examination/study. > Interpreting Provider: Bina Perez MD on 08/25/2023 10:18 AM Klarissa Richey Rutledge VICE PRESIDENT [employer] DRIVER US ORDERABL ES documented in this encounter Visit Diagnoses Diagnosis Cirrhosis of liver with ascites, unspecified hepatic cirrhosis type (HCC)- Primary Cirrhosis of liver with ascites, unspecified hepatic cirrhosis type (HCC) documented in this encounter Care Teams Motion Picture Narrator Relationship Specialty Start Date End Date Gregorio James MD [address] [place] [phone] PCP - General 08/11/22 05/16/24 Eric Oconnell MD Hospitalist 10/10/21 documented as of this encounter
--- OUTSIDE RECORDS SUMMARY | 2024-10-19 23:36 | XMS_ITS | Encounter Summary ---
Author Organization [facility] Address [address] [facility] [place] [address] Care Team Providers Care Claims Service Representative Name Role Phone Major Kraft MD Primary Care Provider [phone] Eric Oconnell MD Unavailable [phone] Reason for Visit * Reason Onset Date Comments Post Op Call 03/06/2022 Encounter Details Date Type Department Care Team (Late st Contact Info) Description 03/06/2022 Telephone [facility] ENDOSCOPY 1201 [place] [address] Heidi Layton, ALFREDO Post Op [...] st Contact Info) Description 11/29/2024 8:30 AM SPARE PARTS CLERK Office Visit [facility] - Orthopedic Surgery 1031 [facility] [place] [address] Toño Cabrera MD 1031 [facility] 280 [place] [address] 01/08/2025 8:00 AM CDT Appointment [facility] 1201 [place] [address] 01/08/2025 9:00 AM CDT Office Visit [facility] - GI 1225 [facility], [place] [address] Amos Pabon MD [address] [place] [address] [place] [address] documented as of this encounter Goals Goal [...] on filedocumented in this encounter Care Teams Claims Service Representative Relationship Specialty Start Date End Date Major Kraft MD PCP - General 07/01/21 06/08/22 Eric Oconnell MD Hospitalist 10/10/21 documented as of this encounter
--- OUTSIDE RECORDS SUMMARY | 2024-10-19 23:36 | XMS_ITS | Encounter Summary ---
Author Organization [facility] Health Address [address] [facility] [place] [address] Care Team Providers Care Mainframe Applications Developer Name Role Phone Eric Oconnell MD Unavailable [phone] Gregorio James MD Primary Care Provider [phone] Encounter Details Date Type Department Care Team [...] st Contact Info) Description 11/29/2024 8:30 AM EVALUATION ANALYST Office Visit [facility] - Orthopedic Surgery [address] [facility] [place] [address] Toño Cabrera MD 1031 [facility] 280 [place] [address] 01/08/2025 8:00 AM CDT Appointment [facility] 1201 [place] [phone] 01/08/2025 9:00 AM CDT Office Visit [facility] - GI [address] [facility], [place] [address] Amos Pabon MD [address] [place] [address] 2L [facility] [place] [address] documented as of this encounter Goals Goal [...] on filedocumented in this encounter Care Teams Mainframe Applications Developer Relationship Specialty Start Date End Date Gregorio James MD [address] [address] PCP - General 08/11/22 05/16/24 Eric Oconnell MD Hospitalist 10/10/21 documented as of this encounter
--- OUTSIDE RECORDS SUMMARY | 2024-10-19 23:36 | XMS_ITS | Encounter Summary ---
Author Organization [facility] Health Address [address] [facility] [place] [address] Care Team Providers Care Manager Mountain Name Role Phone Eric Oconnell MD Unavailable [phone] Gregorio James MD Primary Care Provider [phone] Reason for Visit * Reason Onset Date Comments Results 08/27/2023 Encounter Details Date Type Department Care Team (Late st Contact Info) Description 08/27/2023 Telephone [facility] - 1225 [place] [phone] Sheridan Ng, RN Results Social History Tobacco [...] st Contact Info) Description 11/29/2024 8:30 AM ACCOUNTS ADJUSTABLE CLERK Office Visit [facility] - Orthopedic Surgery [address] [facility] [place] [place] [address] Toño Cabrera MD 1031 [facility] 280 [place] [address] 01/08/2025 8:00 AM CDT Appointment [facility] 1201 [place] [address] 01/08/2025 9:00 AM CDT Office Visit [facility] - GI 1225 [facility], [place] [address] Amos Pabon MD [address] [place] [address] [place] [address] documented as of this encounter Goals Goal [...] on filedocumented in this encounter Care Teams Manager Mountain Relationship Specialty Start Date End Date Gregorio James MD [address] [place] [phone] PCP - General 08/11/22 05/16/24 Eric Oconnell MD Hospitalist 10/10/21 documented as of this encounter
--- OUTSIDE RECORDS SUMMARY | 2024-10-19 23:36 | XMS_ITS | Encounter Summary ---
Author Organization [facility] Health Address [address] [facility] [place] [address] Care Team Providers Care Link Trainer Teacher Name Role Phone Eric Oconnell MD Unavailable [phone] Gregorio James MD Primary Care Provider [phone] Encounter Details Date Type Department Care Team [...] st Contact Info) Description 11/29/2024 8:30 AM COAL SCREENER Office Visit [facility] - Orthopedic Surgery [address] [facility] [place] [address] Toño Cabrera MD 1031 [facility] 280 [place] [address] 01/08/2025 8:00 AM CDT Appointment [facility] 1201 [place] [address] 01/08/2025 9:00 AM CDT Office Visit [facility] - GI 1225 [facility], [place] [phone] Amos Pabon MD [address] [place] [address] 2L [facility] [place] [address] documented as of this encounter Goals Goal [...] on filedocumented in this encounter Care Teams Link Trainer Teacher Relationship Specialty Start Date End Date Gregorio James MD [address] [address] PCP - General 08/11/22 05/16/24 Eric Oconnell MD Hospitalist 10/10/21 documented as of this encounter
--- OUTSIDE RECORDS SUMMARY | 2024-10-19 23:36 | XMS_ITS | Encounter Summary ---
Author Organization [facility] Health Address [address] [facility] [place] [address] Care Team Providers Care Marketing Intern Name Role Phone Eric Oconnell MD Unavailable [phone] Teodoro Lopez Primary Care Provider Unavailabl e Reason for Visit * Reason Comments Pain Knee Encounter Details Date Type Department Care Team (Latest Contact Info) Description 05/17/2024 11:00 AM CDT Office Visit [facility] - [facility] Surgery 1031 [place] [phone] Toño Cabrera MD 1031 [facility] 280 [place], [place] [phone] Primary osteoarthritis of both knees (Primary Dx) [...] Total Joint Reconstruction Dept of Orthopedic Surgery [facility] [employer] Messaging - Dr. Toño Cabrera Email: .[email or web address] documented in this encounter Progress Notes [...] CDTAssociated Order(s): PROC INJECTION JOINT (SMALL/INTERMED/MAJOR) Procedure(s): VT DRAIN/INJECT LARGE JOINT/BURSA Pre-Procedure Diagnose(s): Primary osteoarthritis of both knees Orthopaedic Surgery Procedure Note Lukas Diaz [id number] Diagnosis: Left knee pain Procedure: Injection of [...] CDTAssociated Order(s): PROC INJECTION JOINT (SMALL/INTERMED/MAJOR) Procedure(s): VT DRAIN/INJECT LARGE JOINT/BURSA Pre-Procedure Diagnose(s): Primary osteoarthritis of both knees Orthopaedic Surgery Procedure Note Lukas Diaz [id number] Diagnosis: Right knee pain Procedure: Injection of [...] st Contact Info) Description 11/29/2024 8:30 AM SIDE LASTER Office Visit [facility] - Orthopedic Surgery 10[address] [place] [address] Toño Cabrera MD 1031 [facility] 280 [place] [address] 01/08/2025 8:00 AM CDT Appointment [facility] 1201 [place] [address] 01/08/2025 9:00 AM CDT Office Visit [facility] - GI 1225 [facility], [place] [address] Amos Pabon MD [address] [place] [address] [place] [address] documented as of this encounter Goals Goal [...] Procedure Name Priority Date/Time Associated Diagnosis Comments VT DRAIN/INJECT LARGE JOINT/BURSA Routine 05/17/2024 3:13 PM CDT Primary osteoarthritis of both knees VT DRAIN/INJECT LARGE JOINT/BURSA Routine 05/17/2024 3:12 PM CDT Primary osteoarthritis of both knees documented in this encounter Results * VT DRAIN/INJECT LARGE JOINT/BURSA (05/17/2024 3:13 PM CDT) Narrative Toño Cabrera MD - 05/17/2024 3:13 PM CDT Toño Cabrera MD ? 05/17/2024 ??3:13 PM Orthopaedic Surgery Procedure Note Lukas Diaz [id number] Diagnosis: Left knee pain Procedure: Injection of [...] Cabrera MD PROCEDURE/MINOR TRUDI GICAL ORDERABLES * VT DRAIN/INJECT LARGE JOINT/BURSA (05/17/2024 3:12 PM CDT) Narrative Toño Cabrera MD - 05/17/2024 3:12 PM CDT Toño Cabrera MD ? 05/17/2024 ??3:13 PM Orthopaedic Surgery Procedure Note Lukas Diaz [id number] Diagnosis: Right knee pain Procedure: Injection of [...] DATE/TIME OF EXAM: ??05/17/2024 12:11 PM, LOCATION ??[facility] INDICATION: M17.0: Bilateral primary osteoarthritis of knee. [...] DATE/TIME OF EXAM: 05/17/2024 12:11 PM, LOCATION [facility] INDICATION: M17.0: Bilateral primary osteoarthritis of knee. [...] Knee documented in this encounter Care Teams Marketing Intern Relationship Specialty Start Date End Date Teoodro Lopez PCP - General 05/17/24 Eric Oconnell MD Hospitalist 10/10/21 documented as of this encounter
--- OUTSIDE RECORDS SUMMARY | 2024-10-19 23:36 | XMS_ITS | Encounter Summary ---
Author Organization [facility] Address [address] [place] [address] Care Team Providers Care Fast Food Shift Supervisor Name Role Phone Major Kraft MD Primary Care Provider [phone] Eric Oconnell MD Unavailable [phone] Reason for Visit * Auth/Cert Specialty Diagnoses / Procedures Referred By Contmegan t Referred To Contact Diagnoses Other cirrhosis of liver (HCC) Other cirrhosis of liver [K74.69] Procedures MI ED EGD FLEX TRANSORAL DX MI EGD FLEX TRANSORAL W BX SNGL OR MULT ESOPHAGOGASTRODUODENOSCOPY (EGD) DIAGNOSTIC Referral ID Status Reason Start Date Expiration Date Visits Re quested Visits Authorized [id number] 1 1 Encounter Details Date Type Department Care Team (Late st Contact Info) Description 03/05/2022 9:37 AM CDT Anesthesia Event [facility] [address] [place] [address] David Holt II, MD [facility] [place] [address] Anesthesia Record Procedure Summary Procedure Name Responsible [...] Anesthesia Transfer of Care - Yasmine Arita APRN-SECOND BUTLER - 03/05/2022 9:57 AM CDT ANESTHESIA TRANSFER OF CARE NOTE Today's Date: 03/05/2022 Date of : 1985 Patient: Lukas Diaz Procedure(s) with comments: EGD - esophagitis, antral ulcers, Holt's A. gastric bx R/O H pylori Surgeon(s): Primary: Amso Pabon MD Preop Diagnosis: Pre-op Diagnois: * [...] st Contact Info) Description 11/29/2024 8:30 AM SPARK PLUG TESTER Office Visit [facility] [address] [facility] [place] [address] Toño Cabrera MD 1031 [facility] 280 [place] [address] 01/08/2025 8:00 AM CDT Appointment [facility] 1201 [place] [address] 01/08/2025 9:00 AM CDT Office Visit [facility] - GI 12[address] [facility], [place] [address] Amos Pabon MD [address] [place] [address] [place] [address] documented as of this encounter Goals Goal [...] mg documented in this encounter Care Teams Fast Food Shift Supervisor Relationship Specialty Start Date End Date Major Kraft MD PCP - General 07/01/21 06/08/22 Eric Oconnell MD Hospitalist 10/10/21 documented as of this encounter
--- OUTSIDE RECORDS SUMMARY | 2024-10-19 23:36 | XMS_ITS | Encounter Summary ---
Author Organization [facility] Address [address] [facility] [place] [address] Care Team Providers Care Air Liaison And Special Staff Name Role Phone Eric Oconnell MD Unavailable [phone] Gregorio James MD Primary Care Provider [phone] Reason for Referral * Durable Medical Equipment (Routine) - Closed Specialty Diagnoses / Procedures Referred By Rod young Referred To Contact DME Services Diagnoses Primary osteoarthritis of both knees Closed fracture of left hip, sequela Toño Cabrera MD [address] [place] [address] Referral ID Status Reason Start Date Expiration Date V isits Requested Visits Authorized [id number] Closed Specialty Services Required 02/16/2024 02/15/2025 1 1 Reason for Visit * Reason Comments Therapeutic Injection Bilat knee injecti on Encounter Details Date Type Department Care Team (Latest Contact Info) Description 02/16/2024 10:45 AM CDT Office Visit [facility] - Orthopedic Surgery [address] [place] [phone] Toño Cabrera MD [address] [place] [address] Primary osteoarthritis of both knees (Primary [...] Total Joint Reconstruction Dept of Orthopedic Surgery [facility] Sp[employer]ik Messaging - Dr. Toño Cabrera Email: [email or web address] documented in this encounter Progress Notes * [...] CDTAssociated Order(s): PROC INJECTION JOINT (SMALL/INTERMED/MAJOR) Procedure(s): W[place] DRAIN/INJECT LARGE JOINT/BURSA Pre-Procedure Diagnose(s): Primary osteoarthritis of both knees Orthopaedic Surgery Procedure Note Lukas Diaz [id number] Diagnosis: Left knee pain Procedure: Injection of [...] CDTAssociated Order(s): PROC INJECTION JOINT (SMALL/INTERMED/MAJOR) Procedure(s): W[place] DRAIN/INJECT LARGE JOINT/BURSA Pre-Procedure Diagnose(s): Primary osteoarthritis of both knees Orthopaedic Surgery Procedure Note Lukas Diaz [id number] Diagnosis: Right knee pain Procedure: Injection of [...] st Contact Info) Description 11/29/2024 8:30 AM TOE PUNCHER Office Visit [facility] - Orthopedic Surgery [address] [place] [phone] Toño Cabrera MD [address] [place] [address] 01/08/2025 8:00 AM CDT Appointment [facility] 1201 [place] [address] 01/08/2025 9:00 AM CDT Office Visit [facility] - GI 1225 [facility], [place] [address] Amos Pabon MD 1225 [facility] 2L [place] [address] Scheduled Referrals Name Type Priority Associated Diagnoses [...] Procedure Name Priority Date/Time Associated Diagnosis Comments WV DRAIN/INJECT LARGE JOINT/BURSA Routine 02/16/2024 10:34 AM CDT Primary osteoarthritis of both knees WV DRAIN/INJECT LARGE JOINT/BURSA Routine 02/16/2024 10:34 AM CDT Primary osteoarthritis of both knees documented in this encounter Results * WV DRAIN/INJECT LARGE JOINT/BURSA (02/16/2024 10:34 AM CDT) Narrative Toño Cabrera MD - 02/16/2024 10:34 AM CDT Toño Cabrera MD ? 02/16/2024 11:34 AM Orthopaedic Surgery Procedure Note Lukas Diaz [id number] Diagnosis: Left knee pain Procedure: Injection of [...] Cabrera MD PROCEDURE/MINOR TRUDI GICAL ORDERABLES * WV DRAIN/INJECT LARGE JOINT/BURSA (02/16/2024 10:34 AM CDT) Narrative Toño Cabrera MD - 02/16/2024 10:34 AM CDT Toño Cabrera MD ? 02/16/2024 11:34 AM Orthopaedic Surgery Procedure Note Lukas Diaz [id number] Diagnosis: Right knee pain Procedure: Injection of [...] documented in this encounter Care Teams Air Liaison And Special Staff Relationship Specialty Start Date End Date Gregorio James MD [address] [address] PCP - General 08/11/22 05/16/24 Eric Oconenll MD Hospitalist 10/10/21 documented as of this encounter
--- OUTSIDE RECORDS SUMMARY | 2024-10-19 23:36 | XMS_ITS | Encounter Summary ---
Author Organization [facility] Address [address] [facility] [place] [address] Care Team Providers Care Lab Instructor Name Role Phone Eric Oconnell MD Unavailable [phone] Gregorio James MD Primary Care Provider [phone] Reason for Visit * Reason Comments Future Appointment 03/14/24 - Tried to c all pt to let him know that appt with Dr. Pabon on 05/08 needed to be rescheduled to 05/19 along with ultrasound. Sent letter.~Stacey Hopson Encounter Details Date Type Department Care Team (Late st Contact Info) Description 03/14/2024 Telephone [facility] [address] [facility], [place] [address] Amos Pabon MD [facility] [place] [address] Future Appointment (03/14/24 - Tried [...] st Contact Info) Description 11/29/2024 8:30 AM TRANSITIONS MANAGER Office Visit [facility] - Orthopedic Surgery 1031 [place] [phone] Toño Cabrera MD [address] [address] 01/08/2025 8:00 AM CDT Appointment [facility] 1201 [place] [address] 01/08/2025 9:00 AM CDT Office Visit [facility] - GI [address] [facility], [place] [address] Amos Pabon MD 1225 [facility] 2L [place] [address] documented as of this encounter Goals Goal [...] on filedocumented in this encounter Care Teams Lab Instructor Relationship Specialty Start Date End Date Gregorio James MD [address] [place] [address] PCP - General 08/11/22 05/16/24 Eric Oconnell MD Hospitalist 10/10/21 documented as of this encounter
--- OUTSIDE RECORDS SUMMARY | 2024-10-19 23:36 | XMS_ITS | Encounter Summary ---
Author Organization [facility] Address [address] [place] [address] Care Team Providers Care Hose Operator Name Role Phone Eric Oconnell MD Unavailable [phone] Gregorio James MD Primary Care Provider Reason for Visit * Reason Onset Date Comments MEDICATION REFILL 02/25/2024 Encounter Details Date Type Department Care Team (Late st Contact Info) Description 02/25/2024 Refill [facility] - GI [address] [place] [address], [place] [address] Amos Pabon MD [address] [place] [address] [place] [address] MEDICATION REFILL Social History Tobacco Use Types [...] Contact Info) Description 11/29/2024 8:30 AM SUPERINTENDENT INSTITUTION Office Visit [facility] - Orthopedic Surgery [address] [place] [address] Toño Cabrera MD 1031 [facility] 280 [place] [address] 01/08/2025 8:00 AM CDT Appointment [facility] 1201 [place] [address] 01/08/2025 9:00 AM CDT Office Visit [facility] - GI [address] [place] [address], [place] [phone] Amos Pabon MD [address] [place] [address] [place] [address] documented as of this encounter Goals Goal [...] on filedocumented in this encounter Care Teams Hose Operator Relationship Specialty Start Date End Date Gregorio James MD [address] [phone] PCP - General 08/11/22 05/16/24 Eric Oconnell MD Hospitalist 10/10/21 documented as of this encounter
--- OUTSIDE RECORDS SUMMARY | 2024-10-19 23:36 | XMS_ITS | Encounter Summary ---
Author Organization [facility] Address [address] [facility] [place] [address] Care Team Providers Care Tenant Relations Coordinator Name Role Phone Eric Oconnell MD Unavailable [phone] Gregorio James MD Primary Care Provider [phone] Reason for Visit * Reason Comments Pain Knee Encounter Details Date Type Department Care Team (Latest Contact Info) Description 08/11/2022 9:00 AM CDT Office Visit [facility] 1031 [place] [address] Toño Cabrera MD [address] [address] Post-traumatic osteoarthritis of left hip (Primary Dx); [...] Hickey MD - 08/11/2022 9:39 AM CDT [facility] Orthopedic Adult Reconstruction Surgery Clinic Note Lukas Diaz, 36 year old, male : 1985 CSN: [id number] Primary Care Physician: Gregorio James MD Diagnosis/Procedures [...] a poor historian. [facility] and wasfound to have a neglected [...] improving but he does see hepatology at [facility]. He states he can not do his activities of daily living including walking or standing for any prolonged period of time due to the left hip pain. He isin a longterm at this point. Current Outpatient Medications on [...] CDTAssociated Order(s): PROC INJECTION JOINT (SMALL/INTERMED/MAJOR) Procedure(s): MS DRAIN/INJECT LARGE JOINT/BURSA Pre-Procedure Diagnose(s): Left knee [...] procedure. Toño Cabrera MD 08/11/2022 10:08 AM EEPER documented in this encounter Plan of Treatment Upcoming Encounters Date Type Department Care Team (Late st Contact Info) Description 11/29/2024 8:30 AM ZOOKEEPER Office Visit [facility] - Orthopedic Surgery [address] [facility] [place] [address] Toño Cabrera MD 1031 [facility] 280 [place] [address] 01/08/2025 8:00 AM CDT Appointment [facility] 1201 [place] [address] 01/08/2025 9:00 AM CDT Office Visit [facility] - GI 1225 [facility], [place] [phone] Amos Pabon MD [facility] [place] [address] documented as of this encounter Goals Goal [...] Procedure Name Priority Date/Time Associated Diagnosis Comments MS DRAIN/INJECT LARGE JOINT/BURSA Routine 08/11/2022 10:08 AM CDT Left knee pain, unspecified chronicity Primary osteoarthritis of left knee documented in this encounter Results * MS DRAIN/INJECT LARGE JOINT/BURSA (08/11/2022 10:08 AM CDT) [...] fracture of left hip, initial encounter ([facility]) Left knee pain, unspecified chronicity Primary osteoarthritis [...] Knee documented in this encounter Care Teams Tenant Relations Coordinator Relationship Specialty Start Date End Date Gregorio James MD [address] [place] [address] PCP - General 08/11/22 05/16/24 Eric Oconnell MD Hospitalist 10/10/21 documented as of this encounter
--- OUTSIDE RECORDS SUMMARY | 2024-10-19 23:36 | XMS_ITS | Encounter Summary ---
Author Organization [facility] Address [address] [facility] [place] [address] Care Team Providers Care Horticultural Farmer Name Role Phone Eric Oconnell MD Unavailable [phone] Gregorio James MD Primary Care Provider [phone] Encounter Details Date Type Department Care Team (Latest Contact Info) Description 08/11/2022 9:00 AM CDT - 08/11/2022 11:59 PM CDT Hospital Encounter [facility] - Orthopedics [address] [place] [phone] Toño Cabrera MD [address] [place] [address] [place], [place] [phone] Discharge Disposition: Home or Self Care Social [...] st Contact Info) Description 11/29/2024 8:30 AM SAP BW DEVELOPER Office Visit [facility] - Orthopedic Surgery 1031 [place] [address] Toño Cabrera MD 1031 [facility] 280 [place] [address] 01/08/2025 8:00 AM CDT Appointment [facility] 1201 [place] [address] 01/08/2025 9:00 AM CDT Office Visit [facility] - GI 1225 [facility], [place] [phone] Amos Pabon MD [address] [place] [address] [place] [address] documented as of this encounter Goals Goal [...] DATE/TIME OF EXAM: ??08/11/2022 9:22 AM, LOCATION ??[facility] INDICATION: M25.562: Pain in left [...] MORE, DATE/TIME OF EXAM: 29:22 AM, LOCATION [facility] INDICATION: M25.562: Pain in left [...] chronicity documented in this encounter Care Teams Horticultural Farmer Relationship Specialty Start Date End Date Gregorio James MD [address] [place] [phone] PCP - General 08/11/22 05/16/24 Eric Oconnell MD Hospitalist 10/10/21 documented as of this encounter
--- OUTSIDE RECORDS SUMMARY | 2024-10-19 23:36 | XMS_ITS | Encounter Summary ---
Author Organization [facility] Health Address [address] [place] [address] Care Team Providers Care Inspector Subassemblies Name Role Phone Eric Oconnell MD Unavailable [phone] Raya Carty PA-C Primary Care Provider Reason for Visit * Reason Onset Date Comments Pre-op Instructions 06/11/2022 Encounter Details Date Type Department Care Team (Late st Contact Info) Description 06/11/2022 Patient Outreach [facility] [address] [place] [id number] Sheridan Dorman RN Pre-op Instructions Social History [...] 1 hour prior to procedure time. 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 This pt is not taking blood thinning medications. documented in this encounter Plan of Treatment Upcoming Encounters Date Type Department Care Team (Late st Contact Info) Description 11/29/2024 8:30 AM BUILDING SUPERVISOR Office Visit [facility] - Orthopedic Surgery [address] [place] [address] Toño Cabrera MD [address] [facility] [address] [place] [address] 01/08/2025 8:00 AM CDT Appointment [facility] [address] [place] [phone] 01/08/2025 9:00 AM CDT Office Visit [facility] - GI [address] [place] [address] Amos Pabon MD [facility] [address] [place] [address] documented as of this encounter Goals Goal [...] on filedocumented in this encounter Care Teams Inspector Subassemblies Relationship Specialty Start Date End Date Raya Carty PA-C [address] [place] [phone] PCP - General 06/09/22 07/05/22 Eric Oconnell MD Hospitalist 10/10/21 documented as of this encounter
--- OUTSIDE RECORDS SUMMARY | 2024-10-19 23:36 | XMS_ITS | Encounter Summary ---
Author Organization [facility] Address [address] [place] [address] Care Team Providers Care Newsroom Intern Name Role Phone Eric Oconnell MD Unavailable [phone] Gregorio James MD Primary Care Provider [phone] Reason for Visit * Reason Comments Pain Abdominal Pt arrives via EMS d ue to RUQ pain. Pt is a resident of [facility] in [facility]. Pt states 2 days ago he was seen an [facility], but hey could not provide care. The [...] Expiration Date Visits Re quested Visits Authorized [id number] 1 1 Encounter Details Date Type Department Care Team (Latest Contact Info) Description 03/28/2024 10:21 PM CDT - 03/29/2024 9:35 PM CDT Emergency [facility] EMERGENCY DEPARTMENT [address] [place] [id number] Isaak Ibrahim MD [address] [place] [address] Tony Gonzales MD [address] [place] [address] Agusto Oswald MD [address] [address] Gastrointestinal hemorrhage with melena (Primary Dx); Shortness [...] Wyatt MD - 03/29/2024 2:07 PM CDT [facility] INTERNAL MEDICINE DISCHARGE SUMMARY PATIENT: Lukas [...] negative for acute process. Patient admitted to [facility] for further management. Following morning pain improved workup negative and stable to discharge back to [facility]. Communication provided for dentist to remove teeth [...] head. > Dictated by Chad Francisco, DO (resident medical officer). I, Ramiro Naranjo MD have personally [...] Neuro: No focal deficits DISCHARGE PLANNING Disposition: [facility] Patient Instructions: Medication List START taking these [...] HYDROcodone-acetaminophen 5-325 MG tablet Commonly known as: Holderness hydrOXYzine HCl 25 MG tablet Commonly known [...] Your Medications These medications were sent to [facility] - [address] [place] [address] [address] [facility] [place] [address] lidocaine 5 % patch You can get these medications from any pharmacy You don't need a prescription for these medications simethicone 80 MG chew tablet Discharge Instructions DISCHARGE INSTRUCTIONS? A MESSAGE FROM YOUR DOCTORS:?? Dear Lukas Diaz,? You were admitted for abdominal pain, workup was largely unremarkable including imaging and blood work. Please follow up with your PCP and human resources assistant manager ? DISCHARGE MEDICATIONS:? Medication List START taking [...] HYDROcodone-acetaminophen 5-325 MG tablet Commonly known as: Holderness hydrOXYzine HCl 25 MG tablet Commonly known [...] Your Medications These medications were sent to [facility] - [address] [place] [address] [address] [place] [address] lidocaine 5 % patch You can get [...] medications, please ask the pharmacy when you picking crew supervisor your prescription. You may also call your primary provider if you still have questions.? ? 2. FOLLOW-UP:? A) Below are your scheduled appointments? Future Appointments Friday May 17, 2024 11:00 AM (Arrive by 10:45 AM) Appointment with Toño Cabrera at [facility] - Orthopedic Surgery ([phone]) [address] [facility] [address] Sunday May 19, 2024 8:00 AM Appointment with [facility] 2 at [facility] ([phone]) [address] [facility] [address] Sunday May 19, 2024 9:00 AM Appointment with Amos Pabon at [facility] - GI ([phone]) [address] [facility], Third Level [facility] [address] ? -If you are not going home but to Rehab or Shelter, ask the providers there about going to [...] in your care!? ? Internal Medicine Team? [facility] [address] [facility]? [place] [address]? Signed: Baltazar Wyatt MD Internal Medicine Resident [facility] 03/29/2024 2:07 PM Associated attestation - Ammon [...] Please follow up with your PCP and human resources assistant manager ? DISCHARGE MEDICATIONS:? Medication List START taking [...] HYDROcodone-acetaminophen 5-325 MG tablet Commonly known as: Holderness hydrOXYzine HCl 25 MG tablet Commonly known [...] Your Medications These medications were sent to [facility] - [address] [place] [address] [place], [place] [address] [address] lidocaine 5 % patch You can get [...] medications, please ask the pharmacy when you picking crew supervisor your prescription. You may also call your primary provider if you still have questions.? ? 2. FOLLOW-UP:? A) Below are your scheduled appointments? Future Appointments Friday May 17, 2024 11:00 AM (Arrive by 10:45 AM) Appointment with Toño Cabrera at [facility] - Orthopedic Surgery ([phone]) [address] [facility] [address] Sunday May 19, 2024 8:00 AM Appointment with [facility] 2 at [facility] ([phone]) [address] [facility] [address] Sunday May 19, 2024 9:00 AM Appointment with Amos Pabon at [facility] - GI ([phone]) [address] [facility], Third Level [facility] [address] ? -If you are not going home but to Rehab or Shelter, ask the providers there about going to [...] in your care!? ? Internal Medicine Team? [facility] [address] [facility]? [place] [address]? documented in this encounter Medications at Time [...] mouth 3 times daily 05/28/2023 HYDROcodone-acetaminoph en (Holderness) 5-325 MG tablet Take 1 (one) tablet [...] Daniel, OT - 03/29/2024 2:35 PM CDT [facility] Physical Medicine and Rehabilitation Occupational Therapy Initial Evaluation Note Patient: Lukas Diaz [facility] Record Number: [id number] Date of : 1985 Age: [age] year [...] just want to get back to the [facility]pc to keep rehabbing PATIENT GOALS: Patient's Primary Concern: Return to facility Home Situation: Type of Residence: Shelter Equipment at Home: Wheelchair-Standard;Walker-2 Wheeled Prior Level [...] date. Bed Mobility: Supine to Sit: Complete [place] with HOB in semi-fowlers position Sit to Supine: Complete [place] Transfers: Sit to Stand: Stand By Assist [...] IP Occupational Therapy indicated at this time. [facility] Goal(s): Patient to be baseline with functional [...] bed, with call light within reach, with Ayaz FUENTES aware,with therapy cues visible on white board. Educated on use of call light for patient safety, patientverbalized understanding and was in agreement. All lines, monitors, IV's, equipment in place and intact pre and post visit. Patient was in no discomfort and had no additional needs at conclusion of OT session. * Marleny Vasquez, PT - 03/29/2024 2:10 PM CDT [facility] Physical Medicine and Rehabilitation Physical Therapy Initial Evaluation Note Patient: Lukas Diaz Med Record Number: [id number] Date of : 1985 Age: [age] year [...] PATIENT GOALS: Patient's Primary Concern: Return to [place] Home Situation: Type of Residence: Shelter Equipment at Home: Wheelchair-Standard;Walker-2 Wheeled Prior Level [...] date. Bed Mobility: Supine to Sit: Complete [place] with HOB in semi-fowlers position Sit to Supine: Complete [place] Transfers: Sit to Stand: Stand By Assist [...] sit to/from stand with stand by assist [facility] Goal(s): Patient to be baseline with functional [...] Rehab Care Payor Source: Medicare Facility Name: [facility]: RN Call Report to:[phone] Transportation (company and number): [employer]: [phone] Certificate of Medical Necessity rationale: 03/29/2024 2:57 PM Patient discharged to SNF under Medicare SNF 3-day waiver? No Comments:EMS ETA 2100 Name/Phone number: Kristen Dong LCSW * Shira Lainez MD - 03/29/2024 12:16 AM CDT [facility] Gastroenterology Hepatology History & Physical 03/29/2024 at 12:16 AM Patient Name: Lukas Diaz (38 year old) Room Number: C07/C07 Chief Complaint Patient presents with Pain Abdominal Pt arrives via EMS due to RUQ pain. Pt is a resident of [facility] in [facility]. Pt states 2 days ago he was seen an [facility], but shay could not provide care. The [...] CTAP, pending final read. Patient admitted to [facility] service for further management, plan for possible [...] , CKMBCK2 , TROPONINI in the last [address] hours. UA:n/a ECG: Normal rate and rhythm [...] HE, EV, ascites or infection - Primary Seismic Plotter - MELD score today MELD 3.0: 9 [...] RN gave report on this pt to [facility]. * Mikey Cruz RN - 03/29/2024 1:56 AM CDT Bed: [facility] Expected date: Expected time: Means of arrival: Comments: C1 * Vamsi Sellers MD - 03/28/2024 11:09 PM CDT [facility] Emergency Department Emergency Medicine Resident Note Chief Complaint Patient presents with Pain Abdominal Pt arrives via EMS due to RUQ pain. Pt is a resident of [facility] in [facility]. Pt states 2 days ago he was seen an [facility], but hey could not provide care. The [...] evaluated, available studies reviewed and interpreted by pr ED Course as of 03/29/24 0459 WedMar [...] also appeared to be trembling. CRN and tablet tester were notified and tablet tester reassessed pt immediately following. * Lauren Welch [...] 10:15 PM CDT This RN called by marketing technology coordinator as pt stated to tech that he was experiencing hallucinations. Pt reporting that he is seeing spiders at this time and hearing voices. Denies SI or HI. Endorses psych hx, hasnot had his ativan or other anxiety meds. CSN notified and pt being taken back to room. * Toño Huitron, Graduate Nurse - 03/28/2024 7:16 PM CDT Tech approached brief writer and stated that pt approached them [...] RUQ pain. Pt is a resident of [facility]. Pt states 2 days ago he was seen an [facility], but hey could not provide care. The [...] in rehab for those conditions. Went to [facility], no help. Told by GI to come to ED here. +N/V. BM constipated, dark streaks. Last urine imaging technologist. Dark yellow. Has not drank alcohol in [...] capsule by mouth 3 times daily HYDROcodone-acetaminophen (Holderness) 5-325 MG tablet Take 1 (one) tablet [...] Contact Info) Description 11/29/2024 8:30 AM DIRECTOR FINANCIAL SERVICES Office Visit [facility] - Orthopedic Surgery [address] [place] [phone] Toño Cabrera MD [address] [facility] [address] [place] [address] 01/08/2025 8:00 AM CDT Appointment [address] [address] 01/08/2025 9:00 AM CDT Office Visit [facility] - GI [address] [facility], [place] [phone] Amos Pabon MD [facility] 2L [place] [address] documented as of this encounter Goals Goal [...] 11:59 PM CDT Shortness of breath PT-INR [facility] STAT 03/28/2024 7:13 PM CDT DIFFERENTIAL MANUAL [...] (mg/dL) <10 <10 mg/dL 12:36 PM CDT [facility] Ethanol Calculated (g/dL) <0.010 <=0.010 g/dL 03/29/2024 12:36 PM CDT [facility] Blood BLOOD SPECIMEN / Unknown Venipuncture / Unknown 03/29/2024 12:08 PM CDT 03/29/2024 12:16 PM CDT Narrative [facility] - 03/29/2024 12:36 PM CDT Ethanol Interp <10: None Detected. Depression of PAPER BAG MACHINE OPERATOR: >100 mg/dl Potentially Critical: >250 [...] - CHEMISTR Y ORDERABLES Performing Organization Address [facility] Co de Phone Number [address] [address], [facility] [phone] * CULTURE BLOOD (03/29/2024 4:31 AM CDT) [facility] Culture No growth day 5 DEVAUGHN 04/03/2024 8:01 AM CDT [facility] MICROBIOLOGY Blood PERIPHERAL BLOOD / Unknown Lab Venipuncture / Unknown 03/29/2024 4:31 AM CDT 03/29/2024 4:37 AM CDT Isaak Ibrahim MD LAB - MICROBIOLOGY O RDERABLES Performing Organization Address [facility] de Phone Number [facility] MICROBIOLOGY [address] [place] [address], [facility] [phone] * PHOSPHORUS BLOOD (03/29/2024 4:30 AM CDT) Phosphorus 2.9 2.8 - 5.1 mg/dL 03/29/2024 5:09 AM CDT [facility] Blood BLOOD SPECIMEN / Unknown Lab Venipuncture / Unknown 03/29/2024 4:30 AM CDT 03/29/2024 4:41 AM CDT Isaak Ibrahim MD LAB - CHEMISTRY KURT ZARAGOZA Performing Organization Address [facility] Co de Phone Number [address] [address], [place] [phone] * MAGNESIUM BLOOD (03/29/2024 4:30 AM CDT) Pathologist [facility] Magnesium 2.1 1.6 - 2.6 mg/dL 03/29/2024 5:[address] [facility] Blood BLOOD SPECIMEN / Unknown Lab Venipuncture / Unknown 03/29/2024 4:30 AM CDT 03/29/2024 4:41 AM CDT Isaak Ibrahim MD LAB - CHEMISTRY KURT ZARAGOZA [facility] Organization Address City/State/ZIP Co de Phone Number [facility] [address] [place] [address] [phone] * (ABNORMAL) COMPREHENSIVE METABOLIC PANEL (03/29/2024 4:30 AM CDT) BUN 10 7 - 26 mg/dL 03/29/2024 5:[address] [facility] Creatinine 0.84 0.71 - 1.16 mg/dL 03/29/2024 5:[address] [facility] Sodium 135(L) 136 - 145 mmol/L 03/29/2024 5:[address] [facility] Potassium 3.8 3.5 - 4.5 mmol/L 03/29/2024 5:[address] [facility] Chloride 105 98 - 107 mmol/L 03/29/2024 5:[address] [facility] CO2 22 22 - 29 mmol/L 03/29/2024 5:[address] [facility] Glucose 87 70 - 115 mg/dL 03/29/2024 5:[address] [facility] Calcium 9.6 8.4 - 10.2 mg/dL 03/29/2024 5:[address] [facility] Protein Total 7.6 6.0 - 8.3 g/dL 03/29/2024 5:[address] [facility] Albumin 3.8 3.4 - 5.0 g/dL 03/29/2024 5:[address] [facility] Bilirubin Total 0.9 0.2 - 1.2 mg/dL 03/29/2024 5:[address] [facility] Alkaline Phosphatase 81 40 - 150 U/L 03/29/2024 5:[address] [facility] ALT 20 5 - 55 U/L 03/29/2024 5:[address] [facility] AST 17 5 - 34 U/L 03/29/2024 5:[address] [facility] Anion Gap 8 6 - 16 03/29/2024 5:[address] [facility] BUN/Creatinine Ratio 12 7 - 23 03/29/2024 5:[address] [facility] Osmolality Calculated 278 275 - 295 mOsm/kg 03/29/2024 5:[address] [facility] Albumin/Globulin Ratio 1.0(L) 1.1 - 2.3 03/29/2024 5:[address] [facility] eGFR by CKD-EPI >90 >=90 mL/min/1.7 3 m2 03/29/2024 5:[address] [facility] Blood BLOOD SPECIMEN / Unknown Lab Venipuncture / Unknown 03/29/2024 4:30 AM CDT 03/29/2024 4:41 AM T Isaak Ibrahim MD LAB - CHEMISTRY ORDE [facility] Organization Address City/State/ZIP Co de Phone Number [facility] [address] [place] [address], [facility] [phone] * CBC W/O DIFFERENTIAL (03/29/2024 4:30 AM T) WBC 8.7 4.0 - 10.7 x10E9/L 03/29/2024 5:[address] [facility] RBC Count 4.81 4.30 - 5.80 x10E12/L 03/29/2024 5:[address] [facility] Hemoglobin 15.3 13.3 - 17.5 g/dL 03/29/2024 5:[address] [facility] Hematocrit 43.4 38.7 - 51.1 % 03/29/2024 5:[address] [facility] MCV 90.2 80.0 - 98.0 fL 03/29/2024 5:[address] [facility] MCH 31.8 26.7 - 33.6 pg 03/29/2024 5:[address] [facility] MCHC 35.3 31.7 - 36.3 g/dL 03/29/2024 5:08 AM CDT [facility] RDW-CV 12.1 11.3 - 14.8 % 03/29/2024 5:08 AM CDT [facility] Platelet Count 178 150 - 420 x10E9/L 03/29/2024 5:08 AM CDT [facility] MPV 10.5 7.8 - 11.4 fL 03/29/2024 5:08 AM CDT [facility] Blood BLOOD SPECIMEN / Unknown Lab Venipuncture / Unknown 03/29/2024 4:30 AM CDT 03/29/2024 4:42 AM CDT Isaak Ibrahim MD LAB - HEMATOLOGY ORD ERABLES [address] [address], [place] [phone] * LIPASE BLOOD (03/29/2024 4:30 AM CDT) Lipase 13 8 - 78 U/L 03/29/2024 5:09 AM CDT [facility] Blood BLOOD SPECIMEN / Unknown Lab Venipuncture / Unknown 03/29/2024 4:30 AM CDT 03/29/2024 4:41 AM CDT Narrative [facility] - 03/29/2024 5:09 AM CDT Lipase results from the Jenkins Alinity analyzer may not be comparable with other methodologies. Isaak Ibrahim MD LAB - CHEMISTRY ORDSpenser ZARAGOZA [address] [address], [place] [phone] * CULTURE BLOOD (03/29/2024 4:30 AM CDT) Culture No growth day 5 DEVUAGHN 04/03/2024 8:01 AM CDT [facility] MICROBIOLOGY Blood PERIPHERAL BLOOD / Unknown Lab Venipuncture / Unknown 03/29/2024 4:30 AM CDT 03/29/2024 4:37 AM CDT Isaak Ibrahim MD LAB - MICROBIOLOGY O RDERABLES Performing Organization Address City/State/[facility] Co de Phone Number [facility] MICROBIOLOGY [address] [place], [place] [address], [facility] [phone] * (ABNORMAL) URINALYSIS REFLEX MICROSCOPIC REFLEX CULTURE (03/29/2024 3:54 AM CDT) Color UA Colorless(A) Straw, Yellow 03/29/2024 4:19 AM T [facility] Clarity UA Clear Clear 03/29/2024 4:[address] [facility] Specific [place] UA 1.009 1.005 - 1.030 03/29/2024 4:[address] [facility] pH UA 7.0 5.0 - 8.0 pH 03/29/2024 4:[address] [facility] Protein UA Negative Negative 03/29/2024 4:[address] [facility] Glucose UA Negative Negative 03/29/2024 4:[address] [facility] Ketone UA Negative Negative 03/29/2024 4:[address] [facility] Bilirubin UA Negative Negative 03/29/2024 4:[address] [facility] Blood UA Negative Negative 03/29/2024 4:[address] [facility] Nitrite UA Negative Negative 03/29/2024 4:[address] [facility] Leukocyte Esterase Negative Negative 03/29/2024 4:[address] [facility] Urobilinogen UA Negative Negative mg/dL 03/29/2024 4:[address] [facility] Comment UA Microscopic not indicated. 03/29/2024 4:[address] [facility] Urine URINE SPECIMEN OBTAINED BY CLEAN CATCH PROCEDURE / Unknown Collection / Unknown 03/29/2024 3:54 AM CDT 03/29/2024 3:56 AM CDT Narrative [facility] - 03/29/2024 4:19 AM CDT Isaak Ibrahim MD LAB - URINALYSIS ORD ERABLES [facility] [address] [place] [address], [facility] [phone] * XR FEMUR LEFT 2VW (03/29/2024 12:13 AM CDT) Anatomical Region Laterality Modality Lower Extremity Radiographic Юлия ging 03/29/2024 1:16 AM CDT Narrative 03/29/2024 11:37 AM CDT PROCEDURE: ??XR FEMUR LEFT 2VW, DATE/TIME OF EXAM: ??03/29/2024 12:13 AM, LOCATION ??[facility] INDICATION: R06.02: Shortness of breath [...] DATE/TIME OF EXAM: 03/29/2024 12:13 AM, LOCATION [facility] INDICATION: R06.02: Shortness of breath [...] head. > Dictated by Chad Francisco DO (resident medical officer). I, Ramiro Naranjo MD have personally reviewed and interpreted this examination/study. > Interpreting Provider: Ramiro Naranjo MD on 03/29/2024 2:30 AM Narrative 03/29/2024 2:30 AM CDT PROCEDURE: ??CT ABDOMEN PELVIS W CONTRAST, DATE/TIME OF EXAM: ??03/29/2024 12:00 AM, LOCATION ??[facility] INDICATION: R06.02: Shortness of breath [...] DATE/TIME OF EXAM: 03/29/2024 12:00 AM, LOCATION [facility] INDICATION: R06.02: Shortness of breath [...] femoralhead. > Dictated by Chad Francisco DO (resident medical officer). I, Ramiro Naranjo MD have personally reviewed and interpreted this examination/study. > Interpreting Provider: Ramiro Naranjo MD on 03/29/2024 2:30 AM Isaak Ibrahim MD CT ORDERABLES * (ABNORMAL) DIFFERENTIAL MANUAL (03/28/2024 7:13 PM CDT) Neutrophil % 72 41 - 74 % 03/28/2024 8:38 PM CDT [facility] Lymphocyte % 16(L) 17 - 47 % 03/28/2024 8:[address] [facility] Monocyte % 12(H) 3 - 11 % 03/28/2024 8:38 PM T [facility] Neutrophil Absolute 9.79(H) 1.60 - 7.50 x10E9/L 03/28/2024 8:38 PM T [facility] Lymphocyte Absolute 2.18 1.00 - 4.40 x10E9/L 03/28/2024 8:38 PM T [facility] Monocyte Absolute 1.63(H) 0.15 - 1.00 x10E9/L 03/28/2024 8:[address] [facility] RBC Morphology NORMAL 03/28/2024 8:[address] [facility] Large Platelets PRESENT(A) (none) 8:[address] [facility] Blood BLOOD SPECIMEN / Unknown Venipuncture / Unknown 03/28/2024 7:13 PM CDT 03/28/2024 7:18 PM CDT Linda Leslie APRN-GROVE WORKER LAB - HEMATO LOGY ORDERABLES [address] [address], [facility] [phone] * AMMONIA (03/28/2024 7:13 PM CDT) Ammonia 37 <=72 umol/L 03/28/2024 7:40 PM CDT [facility] Blood BLOOD SPECIMEN / Unknown Venipuncture / Unknown 03/28/2024 7:13 PM CDT 03/28/2024 7:16 PM CDT Linda Leslie APRN-GROVE WORKER LAB - CHEMIS TRY ORDERABLES [address] [address], [place] [phone] * PT-INR [facility] (03/28/2024 7:13 PM CDT) PT 13.8 12.1 - 14.8 Seconds 03/28/2024 7:44 PM CDT [facility] INR 1.1 See Comment 03/28/2024 7:44 PM CDT [facility] Comment:The suggested therap eutic range for standard coumadin (warfarin) therapy is an INR of 2.0-3.0. For high-risk patients (Mechanical Mitral Valve Prosthesis, etc.), the suggested prophylactic therapeutic range is an INR of 2.5-3.5. Blood BLOOD SPECIMEN / Unknown Venipuncture / Unknown 03/28/2024 7:13 PM CDT 03/28/2024 7:16 PM CDT Linda Leslie APRN-GROVE WORKER LAB - COAGUL ATION ORDERABLES Performing Organization Address City/[facility]/ZIP Co de Phone Number [address] [address], [facility] [phone] * MAGNESIUM BLOOD (03/28/2024 7:13 PM CDT) Pathologist [facility] Magnesium 2.1 1.6 - 2.6 mg/dL 03/28/2024 7:51 PM CDT [facility] Blood BLOOD SPECIMEN / Unknown Venipuncture / Unknown 03/28/2024 7:13 PM CDT 03/28/2024 7:16 PM CDT Linda Leslie [facility] LAB - CHEMIS TRY ORDERABLES [address] [address], [facility] [phone] * LIPASE BLOOD (03/28/2024 7:13 PM CDT) Lipase 12 8 - 78 U/L 03/28/2024 7:51 PM CDT [facility] Blood BLOOD SPECIMEN / Unknown Venipuncture / Unknown 03/28/2024 7:13 PM CDT 03/28/2024 7:16 PM CDT [facility] - 03/28/2024 7:51 PM CDT Lipase results from the Jenkins Alinity analyzer may not be comparable with other methodologies. Linda Asiachioma Leslie BUNDLE PACKER-GROVE WORKER LAB - CHEMIS TRY ORDERABLES [facility] [address] [place] [address], [facility] [phone] * (ABNORMAL) COMPREHENSIVE METABOLIC PANEL (03/28/2024 7:13 PM CDT) BUN 16 7 - 26 mg/dL 03/28/2024 7:[address] [facility] Creatinine 0.88 0.71 - 1.16 mg/dL 03/28/2024 7:[address] [facility] Sodium 134(L) 136 - 145 mmol/L 03/28/2024 7:[address] [facility] Potassium 3.8 3.5 - 4.5 mmol/L 03/28/2024 7:[address] [facility] Chloride 101 98 - 107 mmol/L 03/28/2024 7:[address] [facility] CO2 24 22 - 29 mmol/L 03/28/2024 7:[address] [facility] Glucose 87 70 - 115 mg/dL 03/28/2024 7:[address] [facility] Calcium 9.7 8.4 - 10.2 mg/dL 03/28/2024 7:[address] [facility] Protein Total 7.7 6.0 - 8.3 g/dL 03/28/2024 7:[address] [facility] Albumin 3.9 3.4 - 5.0 g/dL 03/28/2024 7:[address] [facility] Bilirubin Total 0.5 0.2 - 1.2 mg/dL 03/28/2024 7:[address] [facility] Alkaline Phosphatase 82 40 - 150 U/L 03/28/2024 7:[address] [facility] ALT 18 5 - 55 U/L 03/28/2024 7:[address] [facility] AST 14 5 - 34 U/L 03/28/2024 7:[address] [facility] Anion Gap 9 6 - 16 03/28/2024 7:[address] [facility] BUN/Creatinine Ratio 18 7 - 23 03/28/2024 7:[address] [facility] Osmolality Calculated 279 275 - 295 mOsm/kg 03/28/2024 7:[address] [facility] Albumin/Globulin Ratio 1.0(L) 1.1 - 2.3 03/28/2024 7:[address] [facility] eGFR by CKD-EPI >90 >=90 mL/min/1.7 3 m2 03/28/2024 7:[address] [facility] Blood BLOOD SPECIMEN / Unknown Venipuncture / Unknown 03/28/2024 7:13 PM CDT 03/28/2024 7:16 PM CDT Linda Leslie BUNDLE PACKER-GROVE WORKER LAB - CHEMIS TRY ORDERABLES Performing Organization Address City/State/[facility] Co de Phone Number [facility] [address] [place] [id number], [facility] [phone] * (ABNORMAL) CBC W AUTO DIFFERENTIAL (03/28/2024 7:13 PM CDT) WBC 13.6(H) 4.0 - 10.7 x10E9/L 03/28/2024 8:[address] [facility] RBC Count 4.92 4.30 - 5.80 x10E12/L 03/28/2024 8:[address] [facility] Hemoglobin 15.7 13.3 - 17.5 g/dL 03/28/2024 8:[address] [facility] Hematocrit 43.9 38.7 - 51.1 % 03/28/2024 8:[address] [facility] MCV 89.2 80.0 - 98.0 fL 03/28/2024 8:[address] [facility] MCH 31.9 26.7 - 33.6 pg 03/28/2024 8:[address] [facility] MCHC 35.8 31.7 - 36.3 g/dL 03/28/2024 8:38 PM CDT [facility] RDW-CV 11.9 11.3 - 14.8 % 03/28/2024 8:38 PM CDT [facility] Platelet Count 175 150 - 420 x10E9/L 03/28/2024 8:38 PM CDT [facility] MPV 9.7 7.8 - 11.4 fL 03/28/2024 8:38 PM CDT [facility] Blood BLOOD SPECIMEN / Unknown Venipuncture / Unknown 03/28/2024 7:13 PM CDT 03/28/2024 7:18 PM CDT Linda Asiachioma Leslie BUNDLE PACKER-GROVE WORKER LAB - HEMATO LOGY ORDERABLES [facility] [address] [place] [phone], [facility] [phone] * XR CHEST 1VW PORTABLE (03/28/2024 7:10 PM CDT) Anatomical Region Laterality Modality Chest Radiographic Юлия ging 03/28/2024 9:11 PM CDT Narrative 03/29/2024 6:21 AM CDT PROCEDURE: ??XR CHEST 1VW PORTABLE, DATE/TIME OF EXAM: ??03/28/2024 7:14 PM, LOCATION ??[facility] INDICATION: R06.02: Shortness of breath ADDITIONAL CLINICAL INFORMATION: Ordering Provider Reason For Exam: ??r/o effusion COMPARISON: None. FINDINGS/IMPRESSION: Mild bibasilar linear opacities, likely atelectasis. Superimposed aspiration or infection cannot be excluded. There is no pleural effusion or pneumothorax. The cardiomediastinal silhouette is normal. The visible bony thorax is intact. > Dictated by Lukas Francisco DO (Motor Winder) Ludin Anton MD have personally reviewed and interpreted this examination/study. > Interpreting Provider: Ludin Nuno MD on 03/29/2024 6:21 AM Procedure Note Ludin Nuno MD - 03/29/2024 PROCEDURE: XR CHEST 1VW PORTABLE, DATE/TIME OF EXAM: 03/28/2024 7:14 PM, LOCATION [facility] INDICATION: R06.02: Shortness of breath ADDITIONAL CLINICAL INFORMATION: Ordering Provider Reason For Exam: r/o effusion COMPARISON: None. FINDINGS/IMPRESSION: Mild bibasilar linear opacities, likely atelectasis. Superimposed aspiration or infection cannot be excluded. There is no pleural effusionor pneumothorax. The cardiomediastinal silhouette is normal. The visiblebony thorax is intact. > Dictated by Lukas Francisco DO (Motor Winder) ILudin MD have personally reviewed and interpreted this examination/study. > Interpreting Provider: Ludin Nuno MD on 03/29/2024 6:21 AM Linda Leslie BUNDLE PACKER-GROVE WORKER DIAGNOSTIC I MAGING ORDERABLES documented in this [...] 928 ($ Given - Prov ider: Ayaz hTomas RN)153 ($ Given - Provider: Ayaz Thomas [...] Discontinued 927 ($ Given - Prov ider: yAaz Thomas RN) Continuous Medication Order 03/27/2024 03/28/2024 [...] patency. documented in this encounter Care Teams Newsroom Intern Relationship Specialty [place] [address] [place] [phone] PCP - General 08/11/22 05/16/24 Eric Oconnell MD Hospitalist 10/10/21 documented as of this encounter
--- OUTSIDE RECORDS SUMMARY | 2024-10-19 23:36 | XMS_ITS | Encounter Summary ---
Author Organization [facility] Address [address] [place] [address] Care Team Providers Care Cylinder Head Assembler Name Role Phone Eric Oconnell MD Unavailable [phone] Teodoro Lopez Primary Care Provider Unavailabl e [...] st Contact Info) Description 11/29/2024 8:30 AM THREADING MACHINE SETTER Office Visit [facility] - Orthopedic Surgery 1031 [place] [address] Toño Cabrera MD [address] [address] 01/08/2025 8:00 AM CDT Appointment [facility] 1201 [place] [phone] 01/08/2025 9:00 AM CDT Office Visit [facility] - GI [address] [facility], [place] [address] Amos Pabon MD [address] [place] [address] [place] [address] documented as of this encounter Goals Goal [...] on filedocumented in this encounter Care Teams Cylinder Head Assembler Relationship Specialty Start Date End Date Teodoro Lopez PCP - General 05/17/24 Eric Oconnell MD Hospitalist 10/10/21 documented as of this encounter
--- OUTSIDE RECORDS SUMMARY | 2024-10-19 23:36 | XMS_ITS | Encounter Summary ---
Author Organization [facility] Address [address] [facility] [place] [address] Care Team Providers Care Technical Spec Name Role Phone Eric Oconnell MD Unavailable [phone] Raya Carty PA-C Primary Care Provider Reason for Visit * Reason Onset Date Comments Question 07/02/2022 Encounter Details Date Type Department Care Team (Late st Contact Info) Description 07/02/2022 Telephone [facility] - Nephrology [address] [facility] [place] [phone] Ellyn Payne RN Question Social History Tobacco [...] PM CDT Received call from Nurse at [facility]. Pt's Xifaxan needs PA. Inquiring if form has been received and sent back to Medicaid. Would like a call when form has been completed and Xifaxan has been approved. Contact #[phone] documented in this encounter Plan of Treatment Upcoming Encounters Date Type Department Care Team (Late st Contact Info) Description 11/29/2024 8:30 AM MECHANIC GENERAL OPERATIONAL TEST Office Visit [facility] - [facility] [address] [facility] [place] [address] Toño Cabrera MD 1031 [facility] 280 [place] [address] 01/08/2025 8:00 AM CDT Appointment [facility] 1201 [place] [address] 01/08/2025 9:00 AM CDT Office Visit [facility] - GI 1225 [facility], [place] [address] Amos Pabon MD [address] [place] [address] [place] [address] documented as of this encounter Goals Goal [...] on filedocumented in this encounter Care Teams Technical Spec Relationship Specialty Start Date End Date Raya Carty PA-C [address] [place] [address] PCP - General 06/09/22 07/05/22 Eric Oconnell MD Hospitalist 10/10/21 documented as of this encounter
--- OUTSIDE RECORDS SUMMARY | 2024-10-19 23:36 | XMS_ITS | Encounter Summary ---
Author Organization [facility] Address [address] [facility] [place] [address] Care Team Providers Care Manager Administrative Name Role Phone Eric Oconnell MD Unavailable [phone] Gregorio James MD Primary Care Provider [phone] Teodoro Lopez Primary Care Provider Unavailabl e Encounter Details Date Type Department Care Team (Late st Contact Info) Description 05/01/2024 Telephone [facility] - [address] [facility], [place] [address] Nahed Quinonez, ALFREDO Social History [...] need for new PA for Xifaxan. Reports [facility] denies pt need for Xifiaxan while taking lactulose. RN place request for pt assistance renewal for pt. New med list including both medications sent to facility. Alma Rojo [facility] notified for pt assistance renewal. documented in this encounter Plan of Treatment Upcoming Encounters Date Type Department Care Team (Late st Contact Info) Description 11/29/2024 8:30 AM CUSTOMER ADVISOR Office Visit [facility] - Orthopedic Surgery [address] [facility] [place] [address] Toño Cabrera MD 1031 [facility] 280 [place] [address] 01/08/2025 8:00 AM CDT Appointment [facility] 1201 [place] [address] 01/08/2025 9:00 AM CDT Office Visit [facility] - GI [address] [place] [address], [place] [address] Amos Pabon MD [address] [place] [address] [place] [address] documented as of this encounter Goals Goal [...] filedocumented in this encounter Care Teams Manager Administrative Relationship Specialty Start Date End Date Gregorio James MD [address] [place] [phone] PCP - General 08/11/22 05/16/24 Teodoro Lopez PCP - General 05/17/24 Eric Oconnell MD Hospitalist 10/10/21 documented as of this encounter
--- OUTSIDE RECORDS SUMMARY | 2024-10-19 23:37 | XMS_ITS | Encounter Summary ---
Author Organization [facility] Address [address] [facility] [place] [address] Care Team Providers Care Cook At [employer] Name Role Phone Major Kraft MD Primary Care Provider + [phone] Eric Oconnell MD Unavailable + [phone] Encounter Details Date Type Department Care Team ([facility] Contact Info) Description 10/16/2021 Orders Only [facility] - GI [address] [place] [address], [place] [address] Amos Pabon MD [address] [place] [address] OF GASTROENTEROLOGY [place], [place] [phone] Social History Tobacco Use Types Packs/Day Years [...] COVID-19? No / Unsure 10/01/2021 10:22 AM YOGA COORDINATOR documented as of this encounter Plan of Treatment Upcoming Encounters Date Type Department Care Team ([facility] Contact Info) Description 11/29/2024 8:30 AM YOGA COORDINATOR Office Visit [facility] - Orthopedic Surgery [facility] [place] [phone] Toño Cabrera MD [address] [place] [address] 01/08/2025 8:00 AM CDT Appointment [facility] 1201 [place] [address] 01/08/2025 9:00 AM CDT Office Visit [facility] - GI 1225 [facility], [place] [address] Amos Pabon MD 1225 [facility] 2L [place] [address] documented as of this encounter Goals Goal [...] on filedocumented in this encounter Care Teams Cook At School Relationship Specialty Start Date End Date Major Kraft MD PCP - General 07/01/21 06/08/22 Eric Oconnell MD Hospitalist 10/10/21 documented as of this encounter
--- OUTSIDE RECORDS SUMMARY | 2024-10-19 23:37 | XMS_ITS | Encounter Summary ---
Author Organization [facility] Address [address] [facility] [place] [address] Care Team Providers Care Director Of Scientific Research Name Role Phone Major Kraft MD Primary Care Provider [phone] Eric Oconnell MD Unavailable + [phone] Raya Carty PA-C Primary Care Provider Major Kraft MD Primary Care Provider + [phone] Gregorio James MD Primary Care Provider [phone] Reason for Visit * Reason Onset Date Comments Physical Therapy 01/29/2022 Encounter Details Date Type Department Care Team (Late st Contact Info) Description 01/29/2022 Telephone [facility] Orthopedic [facility] 1031 [place], [place] [phone] Toño Cabrera MD [address] [phone] Physical Therapy Social History Tobacco Use Types [...] Patient also gave another call back number [phone] [facility] ask for [facility] nurse. He stated that it had something to do with physical therapy and insurance. Please advise. documented in this encounter Plan of Treatment Upcoming Encounters Date Type Department Care Team (Late st Contact Info) Description 11/29/2024 8:30 AM CLOUD OPERATIONS ENGINEER Office Visit [facility] - Orthopedic Surgery 1031 [place] [address] Toño Cabrera MD 1031 [facility] 280 [place] [address] 01/08/2025 8:00 AM CDT Appointment [place] [phone] 01/08/2025 9:00 AM CDT Office Visit [facility] - GI 1225 [facility], [place] [address] Amos Pabon MD [address] [facility] 2L DIV [place] [address] documented as of this encounter Goals Goal [...] filedocumented in this encounter Care Teams Director Of Scientific Research Relationship Specialty Start Date End Date Major Kraft MD PCP - General 07/01/21 06/08/22 Raya Carty PA-C [address] [place] [phone] PCP - General 06/09/22 07/05/22 Major Kraft MD PCP - General 07/06/22 08/10/22 Gregorio James MD [address] [place] [phone] PCP - General 08/11/22 05/16/24 Eric Oconnell MD Hospitalist 10/10/21 documented as of this encounter
--- OUTSIDE RECORDS SUMMARY | 2024-10-19 23:37 | XMS_ITS | Encounter Summary ---
Author Organization [facility] Address [address] [place] [address] Care Team Providers Care Stud Dairy Cattle Farmer Name Role Phone Major Kraft MD Primary Care Provider + [phone] Eric Oconnell MD Unavailable + [phone] Reason for Visit * Reason Onset Date Comments Results 10/10/2021 Encounter Details Date Type Department Care Team (Late st Contact Info) Description 10/10/2021 Telephone [facility] - 1225 [place] [phone] Sheridan Ng RN Results Social History Tobacco [...] COVID-19? No / Unsure 10/01/2021 10:22 AM ASIC VERIFICATION ENGINEER documented as of this encounter Miscellaneous Notes [...] understanding. Order for OTC iron faxed to [facility] and rehab at [phone]. Next scope on 11/11/20. Patient asks if xifaxin is being ordered. Will clarify with Dr. Pabon. Faxing note to Dr. Eric Cat, local GI, with lab results. VERIFICATION ENGINEER documented in this encounter Plan of Treatment Upcoming Encounters Date Type Department Care Team (Late st Contact Info) Description 11/29/2024 8:30 AM ASIC VERIFICATION ENGINEER Office Visit [facility] - Orthopedic Surgery 1031 [place] [address] Toño Cabrera MD 1031 [facility] 280 [place] [address] 01/08/2025 8:00 AM CDT Appointment [facility] 1201 [place] [address] 01/08/2025 9:00 AM CDT Office Visit [facility] - GI 1225 [facility], [place] [address] Amos Pabon MD [address] [place] [address] [place] [address] documented as of this encounter Goals Goal [...] on filedocumented in this encounter Care Teams Stud Dairy Cattle Farmer Relationship Specialty Start Date End Date Major Kraft MD PCP - General 07/01/21 06/08/22 Eric Oconnell MD Hospitalist 10/10/21 documented as of this encounter
--- OUTSIDE RECORDS SUMMARY | 2024-10-19 23:37 | XMS_ITS | Encounter Summary ---
Author Organization [facility] Health Address [address] [facility] [place] [address] Care Team Providers Care Sales And Service Agent Name Role Phone Maojr Kraft MD Primary Care Provider + [phone] Eric Oconnell MD Unavailable + [phone] Encounter Details Date Type Department Care Team [...] st Contact Info) Description 11/29/2024 8:30 AM NFL PLAYER Office Visit [facility] - Orthopedic Surgery [address] [facility] [place] [address] Toño Cabrera MD 1031 [facility] 280 [place] [address] 01/08/2025 8:00 AM CDT Appointment [facility] 1201 [place] [address] 01/08/2025 9:00 AM CDT Office Visit [facility] - GI 1225 [facility], [place] [address] Amos Pabon MD [facility] 2L [place] [address] documented as of this encounter Goals Goal [...] on filedocumented in this encounter Care Teams Sales And Service Agent Relationship Specialty Start Date End Date Major Kraft MD PCP - General 07/01/21 06/08/22 Eric Oconnell MD Hospitalist 10/10/21 documented as of this encounter
--- OUTSIDE RECORDS SUMMARY | 2024-10-19 23:37 | XMS_ITS | Encounter Summary ---
Author Organization [facility] Address [address] [place] [address] Care Team Providers Care Slackman Name Role Phone Major Kraft MD Primary Care Provider [phone] Eric Oconnell MD Unavailable + [phone] Encounter Details Date Type Department Care Team (Latest Contact Info) Description 01/07/2022 9:54 AM CDT - 01/07/2022 11:59 PM CDT Hospital Encounter [facility] DIAGNOSTIC RAD [facility] 1L [address] [facility] [place] [address] David Burns MD [address] [place], [place] [phone] Discharge Disposition: Home or Self Care Social [...] 11/17/2023 vitamin D, ergocalciferol, (DRISDOL) 1.25 MG (86868 UT) capsule Take 1 (one) capsule by mouth every 7 days for 90 days 4 capsule 2 12/26/2021 03/26/2022 documented as of this encounter Plan of Treatment Upcoming Encounters Date Type Department Care Team (Late st Contact Info) Description 11/29/2024 8:30 AM WATER CONTROL SUPERVISOR Office Visit [facility] - Orthopedic Surgery 1031 [place] [address] Toño Cabrera MD 1031 [facility] 280 [place] [address] 01/08/2025 8:00 AM CDT Appointment [facility] 1201 [place] [phone] 01/08/2025 9:00 AM CDT Office Visit [facility] [place] [address] [place] [address], [place] [address] Amos Pabon MD [address] [place] [address] [place] [address] documented as of this encounter Goals Goal [...] aftercare documented in this encounter Care Teams Slackman Relationship Specialty Start Date End Date Major Kraft MD PCP - General 07/01/21 06/08/22 Eric Oconnell MD Hospitalist 10/10/21 documented as of this encounter
--- OUTSIDE RECORDS SUMMARY | 2024-10-19 23:37 | XMS_ITS | Encounter Summary ---
Author Organization [facility] Address [address] [place] [address] Care Team Providers Care Records Management Associate Name Role Phone Major Kraft MD Primary Care Provider [phone] Eric Oconnell MD Unavailable + [phone] Encounter Details Date Type Department Care Team (Late st Contact Info) Description 02/22/2022 Orders [place] [facility] [place] [address] [place] [address], [place] [phone] Amos Pabon MD [address] [place] [address] [place] [address] Social History Tobacco Use Types Packs/Day Years [...] Contact Info) Description 11/29/2024 8:30 AM MORTGAGE COLLECTOR Office Visit [facility] - Orthopedic Surgery 1031 [place] [address] Toño Cabrera MD [address] [address] 01/08/2025 8:00 AM CDT Appointment [facility] 1201 [place] [address] 01/08/2025 9:00 AM CDT Office Visit [facility] - GI 1225 [facility], [place] [address] Amos Pabon MD [address] [place] [address] [place] [address] documented as of this encounter Goals Goal [...] on filedocumented in this encounter Care Teams Records Management Associate Relationship Specialty Start Date End Date Ampadu, Major W, MD PCP - General 07/01/21 06/08/22 Eric Oconnell MD Hospitalist 10/10/21 documented as of this encounter
--- OUTSIDE RECORDS SUMMARY | 2024-10-19 23:37 | XMS_ITS | Encounter Summary ---
Author Organization [facility] Address [address] [place] [address] Care Team Providers Care Pricing Supervisor Name Role Phone Major Kraft MD Primary Care Provider + [phone] Reason for Referral * Radiology Services (Routine) - Closed Specialty Diagnoses / Procedures Referred By Contac t Referred To Contact Diagnoses Cirrhosis of liver with ascites, unspecified hepatic cirrhosis type (HCC) Procedures US ABDOMEN LIMITED Amos Pabon MD [address] [place] [address] [place] [address] [facility] [address] [place] [address] Referral ID Status Reason Start Date Expiration Date Visits Re quested Visits Authorized [id number] Closed 10/01/2021 10/01/2022 1 1 ODONTIC LAB TECHNICIAN Reason for Visit * Reason Comments Cirrhosis Encounter Details Date Type Department Care Team (Late st Contact Info) Description 10/01/2021 10:00 AM ORTHODONTIC LAB TECHNICIAN Office Visit [facility] - [address] [facility] [place] [phone] Major Kraft MD [address] [place] [phone] Cirrhosis of liver with ascites, unspecified hepatic [...] COVID-19? No / Unsure 10/01/2021 10:22 AM ORTHODONTIC LAB TECHNICIAN documented as of this encounter Last Filed Vital Signs Vital Sign Reading Time Taken Comments Blood Pressure 119/76 10/01/2021 9:37 AM ORTHODONTIC LAB TECHNICIAN Pulse 92 10/01/2021 9:37 AM ORTHODONTIC LAB TECHNICIAN Temperature - - Respiratory Rate 20 10/01/2021 9:37 AM ORTHODONTIC LAB TECHNICIAN Oxygen Saturation 100% 10/01/2021 9:37 AM ORTHODONTIC LAB TECHNICIAN Inhaled Oxygen Concentration - - Weight 85.3 kg (188 lb) 10/01/2021 9:37 AM ORTHODONTIC LAB TECHNICIAN Height 170.2 cm (5' 7 ) 10/01/2021 9:37 AM ORTHODONTIC LAB TECHNICIAN Body Mass Index 29.44 10/01/2021 9:37 AM ORTHODONTIC LAB TECHNICIAN documented in this encounter Patient Instructions * Patient Instructions* Sheridan Ng RN - 10/01/2021 12:06 PM ORTHODONTIC LAB TECHNICIAN No fluid restriction is needed. Will check labs and update further instructions. ODONTIC LAB TECHNICIAN documented in this encounter Progress Notes * [...] injury for which he was discharged to group home facility. Prior to that he was living by himself renting an apartment. Only father is his family close by. 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 He never drove a car or license. [...] RFLX CONFIRMATION ??? HEPATITIS C ANTIBODY ??? ANIQM-5-MIBOABDELIZ BLOOD ??? TIFFANY BLOOD SCREEN W/REFLEX TITER [...] use Working on disability Lives at a skilled nursing/rehab place since the last hospitalization Social History [...] involved in the discussion. Amos Pabon MD cardiology coordinator Gastroenterology and Hepatology Abdominal Organ Transplatation [facility] October 01, 2021 ODONTIC LAB TECHNICIAN documented in this encounter Plan of Treatment Upcoming Encounters Date Type Department Care Team (Late st Contact Info) Description 11/29/2024 8:30 AM ORTHODONTIC LAB TECHNICIAN Office Visit [facility] - Orthopedic Surgery [address] [facility] [place] [address] Toño Cabrera MD [address] [facility] [address] [place] [address] 01/08/2025 8:00 AM CDT Appointment [facility] US [address] [place] [phone] 01/08/2025 9:00 AM CDT Office Visit [facility] - GI [address] [facility] [place] [phone] Amos Pabon MD [address] [place] [address] [place] [address] documented as of this encounter Goals Goal [...] * US ABDOMEN LIMITED (10/21/2021 10:20 AM ORTHODONTIC LAB TECHNICIAN) Anatomical Region Laterality Modality Abdomen Ultrasound 10/21/2021 10:4 4 AM ORTHODONTIC LAB TECHNICIAN Impressions 10/21/2021 11:38 AM ORTHODONTIC LAB TECHNICIAN IMPRESSION: 1.Hepatic cirrhosis with sequela of portal hypertension (recanalization of the umbilical vein) without discrete hepatic lesion. 2.Splenomegaly. 3.No evidence of cholelithiasis or acute cholecystitis. Dictated by Lawrence Meyers D.O. (Cash Clerk) I, Dr. BINA PEREZ M.D. have personally reviewed and interpreted this examination/study. This report was electronically signed by BINA PEREZ M.D. ??on 10/21/2021 11:38 AM . Narrative 10/21/2021 11:38 AM ORTHODONTIC LAB TECHNICIAN EXAMINATION: Limited abdominal sonogram HISTORY: K74.60: Cirrhosis [...] acute cholecystitis. Dictated by Lawrence Meyers D.O. (Cash Clerk) I, Dr. BINA PEREZ M.D. have personally reviewed and interpreted this examination/study. This report was electronically signed by BINA PEREZ M.D. on10/21/2021 11:38 AM . Amos Pabon MD ORDERABLES * (ABNORMAL) IRON BLOOD (10/01/2021 11:38 AM ORTHODONTIC LAB TECHNICIAN) Iron 17(L) 50 - 175 ug/dL 10/01/2021 12:55 PM ORTHODONTIC LAB TECHNICIAN [facility] Blood BLOOD SPECIMEN / Unknown Lab Venipuncture / Unknown 10/01/2021 11:38 AM ORTHODONTIC LAB TECHNICIAN 10/01/2021 11:46 AM ORTHODONTIC LAB TECHNICIAN Amos Pabon MD LAB - CHEMISTRY KURT ZARAGOZA Performing Organization Address City/[facility]/ZIP Co de Phone Number [address] [address], [facility] [phone] * (ABNORMAL) IGG BLOOD (10/01/2021 11:38 AM ORTHODONTIC LAB TECHNICIAN) IgG 2,513(H) 767-1,590 mg/dL 10/01/2021 12:55 PM ORTHODONTIC LAB TECHNICIAN [facility] Blood BLOOD SPECIMEN / Unknown Lab Venipuncture / Unknown 10/01/2021 11:38 AM ORTHODONTIC LAB TECHNICIAN 10/01/2021 11:46 AM ORTHODONTIC LAB TECHNICIAN Amos Pabon MD LAB - CHEMISTRY ORDSukhjinder ZARAGOZA [address] [address], [facility] [phone] * (ABNORMAL) FERRITIN (10/01/2021 11:38 AM ORTHODONTIC LAB TECHNICIAN) Ferritin 19(L) 22 - 275 ng/mL 10/01/2021 1:14 PM ORTHODONTIC LAB TECHNICIAN [facility] Blood BLOOD SPECIMEN / Unknown Lab Venipuncture / Unknown 10/01/2021 11:38 AM ORTHODONTIC LAB TECHNICIAN 10/01/2021 11:46 AM ORTHODONTIC LAB TECHNICIAN Amos Pabon MD LAB - CHEMISTRY KRUT ZARAGOZA [place] [address] [place] [id number], [facility] [phone] * TIFFANY BLOOD SCREEN W/REFLEX TITER (10/01/2021 11:38 AM ORTHODONTIC LAB TECHNICIAN) TIFFANY IgG None Detected None Detected 10/04/2021 12:34 AM ORTHODONTIC LAB TECHNICIAN [facility] ([facility]) Comment: If suspicion of connective tissue disease is strong and TIFFANY EIA is negative, consider testing for TIFFANY by IFA ([id number]). INTERPRETIVE INFORMATION: Anti-Nuclear Antibodies (TIFFANY), IgG by SAVANNAH Antinuclear Antibodies (TIFFANY), IgG by SAVANNAH: TIFFANY specimens are screened using enzyme-linked immunosorbent assay (SAVANNAH) methodology. All SAVANNAH results reported as Detected are further tested by indirect fluorescent assay (IFA) using HEp-2 substrate with an IgG-specific conjugate. The TIFFANY SAVANNAH screen is designed to detect antibodies against dsDNA, histones, SS-A (Ro), SS-B (La), Clayton, Clayton/PRECISION ASSEMBLER, Scl-70, Nuris-1, centromeric proteins, other antigens extracted from the HEp-2 cell nucleus. TIFFANY SAVANNAH assays have been reported to have lower sensitivities than TIFFANY IFA for systemic autoimmune rheumatic diseases (SARD). Negative results do not necessarily rule out SARD. Performed By: [facility] [address] [place] [address] Store Hand: Ivanna Ballard MD Blood BLOOD SPECIMEN / Unknown Lab Venipuncture / Unknown 10/01/2021 11:38 AM ORTHODONTIC LAB TECHNICIAN 10/01/2021 11:45 AM ORTHODONTIC LAB TECHNICIAN Amos Pabon MD LAB - CHEMISTRY KURT ZARAGOZA [facility]) [address] * BOGOH-6-MBYJHJIPFBN BLOOD (10/01/2021 11:38 AM ORTHODONTIC LAB TECHNICIAN) Rakvw-8-Fyrhjc ypsin 159 90 - 200 mg/dL 10/01/2021 12:55 PM ORTHODONTIC LAB TECHNICIAN [facility] Blood BLOOD SPECIMEN / Unknown Lab Venipuncture / Unknown 10/01/2021 11:38 AM ORTHODONTIC LAB TECHNICIAN 10/01/2021 11:46 AM ORTHODONTIC LAB TECHNICIAN Amos Pabon MD LAB - CHEMISTRY KURT ZARAGOZA [address] [address], [place] [phone] * HEPATITIS C ANTIBODY (10/01/2021 11:38 AM ORTHODONTIC LAB TECHNICIAN) Hepatitis C Antibody Non-react young Non-reac tive 10/01/2021 1:14 PM ORTHODONTIC LAB TECHNICIAN [facility] Comment:Hepatitis C Antibody screen indicates no serologic evidence of past or current infection with Hepatitis C Virus. Patients with unexplained liver disease who are immunocompromised or suspected of having acute Hepatitis C infection may benefit from Nucleic Acid Test (MARIBELL) for Hepatitis C Viral RNA to confirm Hepatitis C status. Blood BLOOD SPECIMEN / Unknown Lab Venipuncture / Unknown 10/01/2021 11:38 AM ORTHODONTIC LAB TECHNICIAN 10/01/2021 11:46 AM ORTHODONTIC LAB TECHNICIAN Amos Pabon MD LAB - CHEMISTRY KURT ZARAGOZA Performing Organization Address [facility]/ZIP Co de Phone Number [address] [address], [place] [phone] * HEPATITIS B SURFACE ANTIGEN W RFLX CONFIRMATION (10/01/2021 11:38 AM ORTHODONTIC LAB TECHNICIAN) Hepatitis B Virus Surface Antigen Non-reacti ve Non-reacti ve 10/01/2021 1:14 PM ORTHODONTIC LAB TECHNICIAN [facility] Blood BLOOD SPECIMEN / Unknown Lab Venipuncture / Unknown 10/01/2021 11:38 AM ORTHODONTIC LAB TECHNICIAN 10/01/2021 11:46 AM ORTHODONTIC LAB TECHNICIAN Amos Pabon MD LAB - CHEMISTRY KURT ZARAGOZA Performing Organization Address City/[facility]/ZIP Co de Phone Number [address] [address], [place] [phone] * (ABNORMAL) HEPATITIS B SURFACE ANTIBODY (10/01/2021 11:38 AM ORTHODONTIC LAB TECHNICIAN) Hepatitis B Virus Surface Antibody Reactive( A) [...] Lab Venipuncture / Unknown 10/01/2021 11:38 AM ORTHODONTIC LAB TECHNICIAN 10/01/2021 11:46 AM ORTHODONTIC LAB TECHNICIAN Amos Pabon MD LAB - CHEMISTRY KURT ZARAGOZA Performing Organization Address [facility] Co de Phone Number [address] [address], [facility] [phone] * HEPATITIS B CORE ANTIBODY (10/01/2021 11:38 AM ORTHODONTIC LAB TECHNICIAN) HBc Antibody Total Non-reacti ve Non-reacti ve 10/01/2021 1:14 PM ORTHODONTIC LAB TECHNICIAN [facility] Blood BLOOD SPECIMEN / Unknown Lab Venipuncture / Unknown 10/01/2021 11:38 AM ORTHODONTIC LAB TECHNICIAN 10/01/2021 11:46 AM ORTHODONTIC LAB TECHNICIAN Amos Pabon MD LAB - CHEMISTRY KURT ZARAGOZA Performing Organization Address City/[facility]/ZIP Co de Phone Number [address] [address], [place] [phone] * (ABNORMAL) HEPATITIS A ANTIBODY (10/01/2021 11:38 AM ORTHODONTIC LAB TECHNICIAN) [facility] Hepatitis A Virus Antibody Total Positive( A) Negative 10/03/2021 5:38 PM ORTHODONTIC LAB TECHNICIAN [facility] ([facility]) Comment: The positive anti-HAV is consistent with recent or remote Hepatitis A infection or antibody response to HAV vaccination. False positive anti-HAV can occur. Performed by [facility] [employer], [address] [place] [address] [email or web address], Ivanna Ballard MD, Lab. Director Blood BLOOD SPECIMEN / Unknown Lab Venipuncture / Unknown 10/01/2021 11:38 AM ORTHODONTIC LAB TECHNICIAN 10/01/2021 11:45 AM ORTHODONTIC LAB TECHNICIAN Amos Pabon MD LAB - CHEMISTRY ORDE RABLES Performing Organization Address [facility] Co de Phone Number [facility]) [address] * (ABNORMAL) PT-INR [facility] (10/01/2021 11:38 AM ORTHODONTIC LAB TECHNICIAN) [facility] PT 15.5(H) 12.1 - 14.8 Seconds 10/01/2021 12:07 PM ORTHODONTIC LAB TECHNICIAN [facility]ORY [facility] INR 1.2 See Comment 10/01/2021 12:07 PM ORTHODONTIC LAB TECHNICIAN [facility] Comment:The suggested therap eutic range for standard coumadin (warfarin) therapy is an INR of 2.0-3.0. For high-risk patients (Mechanical Mitral Valve Prosthesis, etc.), the suggested prophylactic therapeutic range is an INR of 2.5-3.5. Blood BLOOD SPECIMEN / Unknown Lab Venipuncture / Unknown 10/01/2021 11:38 AM ORTHODONTIC LAB TECHNICIAN 10/01/2021 11:46 AM ORTHODONTIC LAB TECHNICIAN Amos Pabon MD LAB - COAGULATION OR DERABLES [facility] [address] [place] [address], [place] [phone] * (ABNORMAL) HEPATIC FUNCTION PANEL (10/01/2021 11:38 AM ORTHODONTIC LAB TECHNICIAN) [facility] Protein Total 8.6(H) 6.0 - 8.3 g/dL [...] Lab Venipuncture / Unknown 10/01/2021 11:38 AM ORTHODONTIC LAB TECHNICIAN 10/01/2021 11:46 AM ORTHODONTIC LAB TECHNICIAN Amos Pabon MD LAB - CHEMISTRY KURT ZARAGOZA [facility] Organization Address City/State/[facility] Co de Phone Number [facility] [address] [place] [phone] [phone] * (ABNORMAL) BASIC METABOLIC PANEL (CALCIUM TOTAL) (10/01/2021 11:38 AM ORTHODONTIC LAB TECHNICIAN) [facility] BUN 10 7 - 26 mg/dL 10/01/2021 [...] Lab Venipuncture / Unknown 10/01/2021 11:38 AM ORTHODONTIC LAB TECHNICIAN 10/01/2021 11:46 AM [facility] Amos Pabon MD LAB - CHEMISTRY ORDE NIK [facility] Organization Address City/State/ZIP Co de Phone Number [facility] [address] [place] [address], [facility] [phone] * (ABNORMAL) CBC W/O DIFFERENTIAL (10/01/2021 11:38 AM ORTHODONTIC LAB TECHNICIAN) WBC 4.3 3.5 - 10.5 10? 3 [...] Lab Venipuncture / Unknown 10/01/2021 11:38 AM ORTHODONTIC LAB TECHNICIAN 10/01/2021 11:51 AM ORTHODONTIC LAB TECHNICIAN Amos Pabon MD LAB - HEMATOLOGY ORD ERABLES [facility] [address] [place] [address], [facility] [phone] * ALPHA FETOPROTEIN BLOOD TUMOR MARKER (10/01/2021 11:38 AM ORTHODONTIC LAB TECHNICIAN) Alpha-Fetoprote in Tumor Marker 2.6 <=8.3 ng/mL 10/01/2021 12:35 PM [facility] Comment: AFP values will vary depending on testing procedure used. Results are not comparable across different methods. AFP values obtained by [facility] using an Jenkins Alinity Immunoassay. Blood BLOOD SPECIMEN / Unknown Lab Venipuncture / Unknown 10/01/2021 11:38 AM ORTHODONTIC LAB TECHNICIAN 10/01/2021 11:51 AM ORTHODONTIC LAB TECHNICIAN Amos Pabon MD LAB - CHEMISTRY KURT Cid Organization Address City/State/ZIP Co de Phone Number [facility]OR[facility]ORY [address] [address], [facility] [phone] documented in this encounter Visit Diagnoses Diagnosis Cirrhosis of liver with ascites, unspecified hepatic cirrhosis type (HCC)- Primary Alcoholic cirrhosis of liver with ascites (HCC) Alcoholic cirrhosis of liver Alcohol use disorder, mild, abuse Anemia, unspecified type Liver failure without hepatic coma, unspecified chronicity (HCC) Cirrhosis of liver with ascites, unspecified hepatic cirrhosis type (HCC) documented in this encounter Care Teams Pricing Supervisor Relationship Specialty Start Date End Date Major Kraft MD PCP - General 07/01/21 06/08/22 documented as of this encounter
--- OUTSIDE RECORDS SUMMARY | 2024-10-19 23:37 | XMS_ITS | Encounter Summary ---
Author Organization [facility] Address [address] [facility] [place] [address] Care Team Providers Care Tibco Developer Name Role Phone Major Kraft MD Primary Care Provider [phone] Encounter Details Date Type Department Care Team (Latest Contact Info) Description 10/01/2021 10:36 AM ORTHOPAEDIC GENERAL - 10/01/2021 11:59 PM ORTHOPAEDIC GENERAL Hospital Encounter [facility] OP DRAW STATION [address] [place] [phone] Discharge Disposition: Home or Self Care Social [...] COVID-19? No / Unsure 10/01/2021 10:22 AM ORTHOPAEDIC GENERAL documented as of this encounter Medications at [...] normal. Will need to monitor for now. O[facility]IC GENERAL documented in this encounter Plan of Treatment Upcoming Encounters Date Type Department Care Team (Late st Contact Info) Description 11/29/2024 8:30 AM ORTHOPAEDIC GENERAL Office Visit [facility] - Orthopedic Surgery [address] [place] [address] Toño Cabrera MD [address] [address] 01/08/2025 8:00 AM CDT Appointment [facility] [address] [place] [address] 01/08/2025 9:00 AM CDT Office Visit [facility] - GI [address] [facility], [place] [address] Amos Pabon MD [address] [facility] 2L [place] [address] documented as of this encounter Goals Goal [...] Name Priority Date/Time Associated Diagnosis Comments PT-INR [facility] Routine 10/01/2021 11:38 AM ORTHOPAEDIC GENERAL Cirrhosis of liver with ascites, unspecified hepatic cirrhosis type (HCC) TIFFANY BLOOD SCREEN W/REFLEX TITER Routine 10/01/2021 11:38 AM ORTHOPAEDIC GENERAL Cirrhosis of liver with ascites, unspecified hepatic cirrhosis type (HCC) ALPHA FETOPROTEIN BLOOD TUMOR MARKER Routine 10/01/2021 11:38 AM ORTHOPAEDIC GENERAL Cirrhosis of liver with ascites, unspecified hepatic cirrhosis type (HCC) [id number] BLOOD Routine 10/01/2021 11:38 AM ORTHOPAEDIC GENERAL Cirrhosis of liver with ascites, unspecified hepatic cirrhosis type (HCC) CBC W/O DIFFERENTIAL Routine 10/01/2021 11:38 AM ORTHOPAEDIC GENERAL Cirrhosis of liver with ascites, unspecified hepatic cirrhosis type (HCC) BASIC METABOLIC PANEL (CALCIUM TOTAL) Routine 10/01/2021 11:38 AM ORTHOPAEDIC GENERAL Cirrhosis of liver with ascites, unspecified hepatic cirrhosis type (HCC) HEPATIC FUNCTION PANEL Routine 10/01/2021 11:38 AM ORTHOPAEDIC GENERAL Cirrhosis of liver with ascites, unspecified hepatic cirrhosis type (HCC) IRON BLOOD Routine 10/01/2021 11:38 AM ORTHOPAEDIC GENERAL Cirrhosis of liver with ascites, unspecified hepatic cirrhosis type (HCC) HEPATITIS B SURFACE ANTIBODY Routine 10/01/2021 11:38 AM ORTHOPAEDIC GENERAL Cirrhosis of liver with ascites, unspecified hepatic cirrhosis type (HCC) HEPATITIS B CORE ANTIBODY TOTAL Routine 10/01/2021 11:38 AM ORTHOPAEDIC GENERAL Cirrhosis of liver with ascites, unspecified hepatic cirrhosis type (HCC) HEPATITIS B SURFACE ANTIGEN W RFLX CONFIRMATION Routine 10/01/2021 11:38 AM ORTHOPAEDIC GENERAL Cirrhosis of liver with ascites, unspecified hepatic cirrhosis type (HCC) IGG BLOOD Routine 10/01/2021 11:38 AM ORTHOPAEDIC GENERAL Cirrhosis of liver with ascites, unspecified hepatic cirrhosis type (HCC) HEPATITIS C ANTIBODY Routine 10/01/2021 11:38 AM ORTHOPAEDIC GENERAL Cirrhosis of liver with ascites, unspecified hepatic cirrhosis type (HCC) HEPATITIS A ANTIBODY Routine 10/01/2021 11:38 AM ORTHOPAEDIC GENERAL Cirrhosis of liver with ascites, unspecified hepatic cirrhosis type (HCC) FERRITIN Routine 10/01/2021 11:38 AM ORTHOPAEDIC GENERAL Cirrhosis of liver with ascites, unspecified hepatic cirrhosis type (HCC) documented in this encounter Results * (ABNORMAL) IRON BLOOD (10/01/2021 11:38 AM ORTHOPAEDIC GENERAL) Iron 17(L) 50 - 175 ug/dL 10/01/2021 12:55 PM ORTHOPAEDIC GENERAL [facility] Blood BLOOD SPECIMEN / Unknown Lab Venipuncture / Unknown 10/01/2021 11:38 AM ORTHOPAEDIC GENERAL 10/01/2021 11:46 AM ORTHOPAEDIC GENERAL Amos Pabon MD LAB - CHEMISTRY KURT ZARAGOZA Performing Organization Address City/[facility]/ZIP Co de Phone Number [address] [address], [facility] [phone] * (ABNORMAL) IGG BLOOD (10/01/2021 11:38 AM ORTHOPAEDIC GENERAL) IgG 2,513(H) 767-1,590 mg/dL 10/01/2021 12:55 PM ORTHOPAEDIC GENERAL [facility] Blood BLOOD SPECIMEN / Unknown Lab Venipuncture / Unknown 10/01/2021 11:38 AM ORTHOPAEDIC GENERAL 10/01/2021 11:46 AM ORTHOPAEDIC GENERAL Amos Pabon MD LAB - CHEMISTRY KURT ZARAGOZA Performing Organization Address City/[facility]/ZIP Co de Phone Number [address] [address], [facility] [phone] * (ABNORMAL) FERRITIN (10/01/2021 11:38 AM ORTHOPAEDIC GENERAL) Pathologist [facility] Ferritin 19(L) 22 - 275 ng/mL 10/01/2021 1:14 PM ORTHOPAEDIC GENERAL [facility] Blood BLOOD SPECIMEN / Unknown Lab Venipuncture / Unknown 10/01/2021 11:38 AM ORTHOPAEDIC GENERAL 10/01/2021 11:46 AM ORTHOPAEDIC GENERAL Amos Pabon MD LAB - CHEMISTRY KURT ZARAGOZA Performing Organization Address City/[facility]/ZIP Co de Phone Number [address] [address], [facility] [phone] * TIFFANY BLOOD SCREEN W/REFLEX TITER (10/01/2021 11:38 AM ORTHOPAEDIC GENERAL) TIFFANY IgG None Detected None Detected 10/04/2021 12:34 AM ORTHOPAEDIC GENERAL [facility] ([facility]) Comment: If suspicion of connective tissue disease is strong and TIFFANY EIA is negative, consider testing for TIFFANY by IFA ([id number]). INTERPRETIVE INFORMATION: Anti-Nuclear Antibodies (TIFFANY), IgG by SAVANNAH Antinuclear Antibodies (TIFFANY), IgG by SAVANNAH: TIFFANY specimens are screened using enzyme-linked immunosorbent assay (SAVANNAH) methodology. All SAVANNAH results reported as Detected are further tested by indirect fluorescent assay (IFA) using HEp-2 substrate with an IgG-specific conjugate. The TIFFANY SAVANNAH screen is designed to detect antibodies against dsDNA, histones, SS-A (Ro), SS-B (La), Clayton, Clayton/MORTGAGE LOAN FUNDER, Scl-70, Nuris-1, centromeric proteins, other antigens extracted from the HEp-2 cell nucleus. TIFFANY SAVANNAH assays have been reported to have lower sensitivities than TIFFANY IFA for systemic autoimmune rheumatic diseases (SARD). Negative results do not necessarily rule out SARD. Performed By: [facility] [address] [place] [address] Music Historian: Ivanna Ballard MD Blood BLOOD SPECIMEN / Unknown Lab Venipuncture / Unknown 10/01/2021 11:38 AM ORTHOPAEDIC GENERAL 10/01/2021 11:45 AM ORTHOPAEDIC GENERAL Amos Pabon MD LAB - CHEMISTRY KURT ZARAGOZA Performing Organization Address City/[facility] Co de Phone Number [facility] ([facility]) [address] [place] [address] * [id number] BLOOD (10/01/2021 11:38 AM ORTHOPAEDIC GENERAL) [facility] Syppc-0-Bfzrdn ypsin 159 90 - 200 mg/dL 10/01/2021 12:55 PM ORTHOPAEDIC GENERAL [facility] Blood BLOOD SPECIMEN / Unknown Lab Venipuncture / Unknown 10/01/2021 11:38 AM ORTHOPAEDIC GENERAL 10/01/2021 11:46 AM ORTHOPAEDIC GENERAL Amos Pabon MD LAB - CHEMISTRY KURT ZARAGOZA [facility] [address] [place] [address], [facility] [phone] * HEPATITIS C ANTIBODY (10/01/2021 11:38 AM ORTHOPAEDIC GENERAL) [facility] Hepatitis C Antibody Non-react young Non-reac tive 10/01/2021 1:14 PM ORTHOPAEDIC GENERAL [facility] Comment:Hepatitis C Antibody screen indicates no serologic evidence of past or current infection with Hepatitis C Virus. Patients with unexplained liver disease who are immunocompromised or suspected of having acute Hepatitis C infection may benefit from Nucleic Acid Test (MARIBELL) for Hepatitis C Viral RNA to confirm Hepatitis C status. Blood BLOOD SPECIMEN / Unknown Lab Venipuncture / Unknown 10/01/2021 11:38 AM ORTHOPAEDIC GENERAL 10/01/2021 11:46 AM ORTHOPAEDIC GENERAL Amos Pabon MD LAB - CHEMISTRY KURT ZARAGOZA Performing Organization Address City/[facility]/ZIP Co de Phone Number [address] [address], [facility] [phone] * HEPATITIS B SURFACE ANTIGEN W RFLX CONFIRMATION (10/01/2021 11:38 AM ORTHOPAEDIC GENERAL) Hepatitis B Virus Surface Antigen Non-reacti ve Non-reacti ve 10/01/2021 1:14 PM [facility] Blood BLOOD SPECIMEN / Unknown Lab Venipuncture / Unknown 10/01/2021 11:38 AM ORTHOPAEDIC GENERAL 10/01/2021 11:46 AM ORTHOPAEDIC GENERAL Amos Pabon MD LAB - CHEMISTRY KURT ZARAGOZA Performing Organization Address [facility] Co de Phone Number [address] [address], [facility] [phone] * (ABNORMAL) HEPATITIS B SURFACE ANTIBODY (10/01/2021 11:38 AM ORTHOPAEDIC GENERAL) Hepatitis B Virus Surface Antibody Reactive( A) Non-react young 10/01/2021 1:14 PM [facility] Comment: > 12 mIU/mL Hepatitis B surface Antibody (HBsAb). Reactive for HBsAb - individual is considered immune to Hepatitis B Virus infection. Hepatitis B Surface Antibody Quantitative 50.9(H) <8.0 mIU/mL 10/01/2021 1:14 PM [facility] Comment: Hepatitis B Surface Antibody Numeric Result Interpretation: ? Nonreactive: ?<8.0 mIU/mL ? Indeterminate: ??8.0 - 12.0 mIU/mL ? Reactive: ?>12.0 mIU/mL ? Blood BLOOD SPECIMEN / Unknown Lab Venipuncture / Unknown 10/01/2021 11:38 AM ORTHOPAEDIC GENERAL 10/01/2021 11:46 AM ORTHOPAEDIC GENERAL Amos Pabon MD LAB - CHEMISTRY KURT ZARAGOZA Performing Organization Address City/[facility]/ZIP Co de Phone Number [address] [address], [facility] [phone] * HEPATITIS B CORE ANTIBODY (10/01/2021 11:38 AM ORTHOPAEDIC GENERAL) HBc Antibody Total Non-reacti ve Non-reacti ve 10/01/2021 1:14 PM ORTHOPAEDIC GENERAL [facility] Blood BLOOD SPECIMEN / Unknown Lab Venipuncture / Unknown 10/01/2021 11:38 AM ORTHOPAEDIC GENERAL 10/01/2021 11:46 AM ORTHOPAEDIC GENERAL Amos Pabon MD LAB - CHEMISTRY KURT ZARAGOZA Performing Organization Address [facility] Co de Phone Number [address] [address], [place] [phone] * (ABNORMAL) HEPATITIS A ANTIBODY (10/01/2021 11:38 AM ORTHOPAEDIC GENERAL) Hepatitis A Virus Antibody Total Positive( A) Negative 10/03/2021 5:38 PM ORTHOPAEDIC GENERAL [facility] ([facility]) Comment: The positive anti-HAV is consistent with recent or remote Hepatitis A infection or antibody response to HAV vaccination. False positive anti-HAV can occur. Performed by [facility], [address] [place] [id number] [email or web address], Ivanna Ballard MD, Lab. Director Blood BLOOD SPECIMEN / Unknown Lab Venipuncture / Unknown 10/01/2021 11:38 AM ORTHOPAEDIC GENERAL 10/01/2021 11:45 AM ORTHOPAEDIC GENERAL Amos Pabon MD LAB - CHEMISTRY ORDSukhjinder ZARAGOZA [facility] ([facility]) [address] * (ABNORMAL) PT-INR [facility] (10/01/2021 11:38 AM ORTHOPAEDIC GENERAL) PT 15.5(H) 12.1 - 14.8 Seconds 10/01/2021 12:07 PM [facility] INR 1.2 See Comment 10/01/2021 12:07 PM [facility] Comment:The suggested therap eutic range for standard coumadin (warfarin) therapy is an INR of 2.0-3.0. For high-risk patients (Mechanical Mitral Valve Prosthesis, etc.), the suggested prophylactic therapeutic range is an INR of 2.5-3.5. Blood BLOOD SPECIMEN / Unknown Lab Venipuncture / Unknown 10/01/2021 11:38 AM ORTHOPAEDIC GENERAL 10/01/2021 11:46 AM ORTHOPAEDIC GENERAL Amos Pabon MD LAB - COAGULATION OR DERABLES [facility] [address] [place] [address], [facility] [phone] * (ABNORMAL) HEPATIC FUNCTION PANEL (10/01/2021 11:38 AM ORTHOPAEDIC GENERAL) Protein Total 8.6(H) 6.0 - 8.3 g/dL 021 12:16 PM [facility] Albumin 3.3(L) 3.4 - 5.0 g/dL 10/01/2021 12:16 PM [facility] Bilirubin Total 0.6 0.2 - 1.2 mg/dL 05/2021 12:16 PM [facility] Bilirubin Conjugated 0.2 0.1 - 0.5 mg/dL 10/01/2021 12:16 PM [facility] Bilirubin Unconjugated 0.4 Unconjugated Bilirubin is a calculated value: Reference ranges have not been established. mg/dL 10/01/2021 12:16 PM [facility] Alkaline Phosphatase 134 40 - 150 U/L 10/01/2021 12:16 PM [facility] ALT 24 5 - 55 U/L 10/01/2021 12:16 PM [facility] AST 34 5 - 34 U/L 10/01/2021 12:16 PM [facility] Albumin/Globulin Ratio 0.6(L) 1.1 - 2.3 10/01/2021 12:16 PM [facility] Blood BLOOD SPECIMEN / Unknown Lab Venipuncture / Unknown 10/01/2021 11:38 AM ORTHOPAEDIC GENERAL 10/01/2021 11:46 AM ORTHOPAEDIC GENERAL Amos Pabon MD LAB - CHEMISTRY KURT ZARAGOZA [facility] [address] [place] [address], [facility] [phone] * (ABNORMAL) BASIC METABOLIC PANEL (CALCIUM TOTAL) (10/01/2021 11:38 AM ORTHOPAEDIC GENERAL) BUN 10 7 - 26 mg/dL 10/01/2021 12:16 PM [facility] Creatinine 0.67(L) 0.71 - 1.16 mg/dL 10/01/2021 12:16 PM [facility] Sodium 136 136 - 145 mmol/L 10/01/2021 12:16 PM [facility] Potassium 3.8 3.5 - 4.5 mmol/L 10/01/2021 12:16 PM [facility] Chloride 105 98 - 107 mmol/L 10/01/2021 12:16 PM [facility] CO2 23 22 - 29 mmol/L 10/01/2021 12:16 PM [facility] Glucose 111 70 - 115 mg/dL 10/01/2021 12:16 PM [facility] Calcium 9.1 8.4 - 10.2 mg/dL 10/01/2021 12:16 PM [facility] Anion Gap 12 - 18 10/01/2021 12:16 PM [facility] BUN/Creatinine Ratio 15 7 - 23 10/01/2021 12:16 PM [facility] Osmolality Calculated 282 270 - 300 mOsm/kg 10/01/2021 12:16 PM [facility] eGFR by CKD-EPI >90 >=90 mL/min/1.7 3 m2 10/01/2021 12:16 PM [facility] Blood BLOOD SPECIMEN / Unknown Lab Venipuncture / Unknown 10/01/2021 11:38 AM ORTHOPAEDIC GENERAL 10/01/2021 11:46 AM ORTHOPAEDIC GENERAL Amos Pabon MD LAB - CHEMISTRY KURT Cid Organization Address City/State/ZIP Co de Phone Number [facility] [address] [place] [address], [facility] [phone] * (ABNORMAL) CBC W/O DIFFERENTIAL (10/01/2021 11:38 AM ORTHOPAEDIC GENERAL) WBC 4.3 3.5 - 10.5 10? 3 /uL 10/01/2021 12:06 PM [facility] RBC 3.52(L) 4.30 - 5.70 10? 6 /uL 10/01/2021 12:06 PM [facility] Hemoglobin 9.8(L) 12.0 - 17.6 g/dL 10/01/2021 12:06 PM [facility] Hematocrit 31.0(L) 35.2 - 51.7 % 10/01/2021 12:06 PM [facility] MCV 88.1 80.7 - 98.3 fL 10/01/2021 12:06 PM [facility] MCH 27.8 26.7 - 34.0 pg 10/01/2021 12:06 PM [facility] MCHC 31.6 30.8 - 35.9 g/dL 10/01/2021 12:06 PM [facility] Platelet Count 209 150 - 400 10? 3 /uL 10/01/2021 12:06 PM [facility] RDW-SD 51.8(H) 36.0 - 50.0 fL 10/01/2021 12:06 PM [facility] RDW-CV 15.9(H) 11.2 - 14.8 % 10/01/2021 12:06 PM [facility] MPV 9.2(L) 9.4 - 12.9 fL 10/01/2021 12:06 PM [facility] nRBC Absolute 0.00 0 10? 3 /uL 10/01/2021 12:06 PM [facility] nRBC Auto 0.0 0 /100 WBC 10/01/2021 12:06 PM [facility] Blood BLOOD SPECIMEN / Unknown Lab Venipuncture / Unknown 10/01/2021 11:38 AM ORTHOPAEDIC GENERAL 10/01/2021 11:51 AM ORTHOPAEDIC GENERAL Amos Pabon MD LAB - HEMATOLOGY ORD ERABLES [address] [address], [place] [phone] * ALPHA FETOPROTEIN BLOOD TUMOR MARKER (10/01/2021 11:38 AM ORTHOPAEDIC GENERAL) Alpha-Fetoprote in Tumor Marker 2.6 <=8.3 ng/mL 10/01/2021 12:35 PM [facility] Comment: AFP values will vary depending on testing procedure used. Results are not comparable across different methods. AFP values obtained by [facility] using an Jenkins Alinity Immunoassay. Blood BLOOD SPECIMEN / Unknown Lab Venipuncture / Unknown 10/01/2021 11:38 AM ORTHOPAEDIC GENERAL 10/01/2021 11:51 AM ORTHOPAEDIC GENERAL Amos Pabon MD LAB - CHEMISTRY ORDE RABLES [address] [address], [place] [phone] documented in this encounter Visit Diagnoses Diagnosis Cirrhosis of liver with ascites, unspecified hepatic cirrhosis type (HCC) documented in this encounter Care Teams Tibco Developer Relationship Specialty Start Date End Date Major Kraft MD PCP - General 07/01/21 06/08/22 documented as of this encounter
--- OUTSIDE RECORDS SUMMARY | 2024-10-19 23:37 | XMS_ITS | Encounter Summary ---
Author Organization [facility] Health Address [address] [facility] [place] [address] Care Team Providers Care Hammerer Tab Name Role Phone Major Kraft MD Primary Care Provider + [phone] Eric Oconnell MD Unavailable + [phone] Encounter Details Date Type Department Care Team (Late st Contact Info) Description 01/30/2022 Orders Only [facility] [address] [place] [address] Mila Clemons, RN Post-traumatic osteoarthritis of left [...] st Contact Info) Description 11/29/2024 8:30 AM COPYHOLDER Office Visit [facility] [address] [facility] [place] [address] Toño Cabrera MD [address] [facility] [address] [place] [address] 01/08/2025 8:00 AM CDT Appointment [facility] [address] [place] [address] 01/08/2025 9:00 AM CDT Office Visit [facility] - GI [address] [facility], [place] [address] Amos Pabon MD [address] [place] [address] [place] [address] documented as of this encounter Goals Goal [...] thigh documented in this encounter Care Teams Hammerer Tab Relationship Specialty Start Date End Date Major Kraft MD PCP - General 07/01/21 06/08/22 Eric Oconnell MD Hospitalist 10/10/21 documented as of this encounter
--- OUTSIDE RECORDS SUMMARY | 2024-10-19 23:37 | XMS_ITS | Encounter Summary ---
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 [address] [place] [address] 01/08/2025 8:00 AM CDT Appointment [facility] [address] [place] [phone] 01/08/2025 9:00 AM CDT Office Visit [facility] - GI [address] [facility], [place] [address] Amos Pabon MD [address] [place] [address] [place] [address] documented as of this encounter Goals Goal [...] filedocumented in this encounter Care Teams Web Design Intern Relationship Specialty Start Date End Date Major Kraft MD PCP - General 07/01/21 06/08/22 Eric Oconnell MD Hospitalist 10/10/21 documented as of this encounter
--- OUTSIDE RECORDS SUMMARY | 2024-10-19 23:37 | XMS_ITS | Encounter Summary ---
Author Organization [facility] Health Address [address] [facility] [place] [address] Care Team Providers Care Punchboard Inserter Name Role Phone Major Kraft MD Primary Care Provider [phone] Eric Oconnell MD Unavailable + [phone] Reason for Visit * Reason Comments Follow-up Encounter Details Date Type Department Care Team (Late st Contact Info) Description 01/07/2022 10:00 AM CDT Office Visit [facility] - Orthopedics [address] [facility] [place] [address] David Burns MD [address] [place] [address] Closed fracture of left hip, [...] Lukas Diaz 36 year old male CSN: [id number] Date of service: 01/07/2022 HPI Lukas Diaz [...] ??? 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 Office Visit [facility] [address] [facility] [place] [address] Toño Cabrera MD [address] [facility] [address] [place] [address] 01/08/2025 8:00 AM CDT Appointment [facility] [address] [place] [address] 01/08/2025 9:00 AM CDT Office Visit [facility] - GI [address] [place] [address], [place] [phone] Amos Pabon MD [address] [place] [address] [place] [address] documented as of this encounter Goals Goal [...] Primary documented in this encounter Care Teams Punchboard Inserter Relationship Specialty Start Date End Date Major Kraft MD PCP - General 07/01/21 06/08/22 Eric Oconnell MD Hospitalist 10/10/21 documented as of this encounter
--- OUTSIDE RECORDS SUMMARY | 2024-10-19 23:37 | XMS_ITS | Encounter Summary ---
Author Organization [facility] Healthcare Address [address] [place] [address] Care Team Providers Care Practice Consultant Name Role Phone Major Kraft MD Primary Care Provider Amos Pabon MD Unavailable Reason for Visit * Reason Comments Hip Pain Encounter Details Date Type Department Care Team (Late st Contact Info) Description 10/26/2023 2:25 AM PHOTO MASK INSPECTOR - 10/26/2023 6:33 AM [facility] Emergency [address] [address] Amalia Boggs DO [address] [place] [id number] Left hip pain (Primary Dx) Discharge Disposition: Discharge to retirement facility Social History Tobacco Use Types Packs/Day Years Used Date Smoking Tobacco: Every Day Cigarettes 0.3 18 [facility] Utilities Answer Date Recorded In the past 12 months has [employer], gas, oil, or water company threatened to [...] often do you attend chur ch or synagogue services? Never 09/29/2023 Do you belong to any clubs o r organizations such as scientology groups, unions, fraternal or athletic groups, or [...] place to sleep or slept in a detention (including now)? No 09/29/2023 Personal Safety Answer Date Recorded Have you ever been in or are you currently in a harmful physical or emotional relationship or is someone making you feel afraid or unsafe? Denies 09/28/2023 Sex and Gender Information Value Date Recorded Sex Assigned at Not on file Legal Sex Male 1:24 PM PHOTO MASK INSPECTOR Gender Identity Not on file Sexual Orientation Not on file Occupation Industry Job Start Date Job End Date disabled Not on file Not on file Not on file documented as of this encounter Last Filed Vital Signs Vital Sign Reading Time Taken Comments Blood Pressure 130/65 10/26/2023 4:38 AM PHOTO MASK INSPECTOR Pulse 68 10/26/2023 4:38 AM PHOTO MASK INSPECTOR Temperature 36.5 ??C (97.7 ??F) 10/26/2023 4:38 AM CS T Respiratory Rate 18 10/26/2023 4:38 AM PHOTO MASK INSPECTOR Oxygen Saturation 96% 10/26/2023 4:38 AM PHOTO MASK INSPECTOR Inhaled Oxygen Concentration - - Weight - - Height - - Body Mass Index - - documented in this encounter Discharge Instructions * Discharge Instructions* Amalia Boggs DO - 10/26/2023 4:41 AM PHOTO MASK INSPECTOR Please follow-up with your primary care physician [...] available during the time of the visit. O MASK INSPECTOR * Attachments The following attachments cannot be sent through Care Everywhere. * Hip Pain (AfterCare(R) Instructions(ER/ED)) (Guinean) documented in this encounter Medications at Time [...] Departure Means Destination Comment s Discharge to retirement facility [facility] ([place], [place]) documented in this encounter ED Notes * Amalia Boggs DO - 10/26/2023 3:53 AM CST HPI Chief Complaint Patient presents with Hip Pain HPI Pt brought in from [facility]. Hx of left hip fx [...] convulsions in the left leg. He takes [place] for the pain and was helping. He [...] left hip pain Pt brought in from [facility]. Hx of left hip fx [...] Hiral Rodrigues M.D. SN T: Report ID: [id number] Reading Location: [id number] BP 130/65 (BP Location: Right arm, Patient [...] DO This examination was transcribed using the Profig voice recognition system without human warp hanger. In an effort to expedite patient care, this report has not been adjusted for typographical, grammatical, and syntax by a trained medical imaging specialist. Clinical Impression: Left hip pain Amalia Boggs DO 10/29/23 0639 O MASK INSPECTOR * Reanna Mcfarland RN - 10/26/2023 2:30 AM CST Pt brought in from [facility]. Hx of left hip fx for past 2 years. Increased painrecently. O MASK INSPECTOR documented in this encounter Plan of Treatment Not on file documented as of this encounter Procedures Procedure Name Priority Date/Time Associated Diagnosis Comments XR HIP LEFT W PELVIS 2 OR 3 VIEWS ED 10/26/2023 3:45 AM PHOTO MASK INSPECTOR documented in this encounter Results * XR Hip Left 2 or 3 Views W Pelvis (10/26/2023 3:45 AM PHOTO MASK INSPECTOR) Anatomical Region Laterality Modality Lower Extremities, Hip, Pelvis Left C omputed Radiography 10/26/2023 3:57 AM PHOTO MASK INSPECTOR Narrative 10/26/2023 4:00 AM PHOTO MASK INSPECTOR EXAM DESCRIPTION: XR HIP LEFT 2 OR 3 VIEWS W PELVIS REASON FOR STUDY: left hip pain ?? Pt brought in from [facility]. Hx of left hip fx [...] D: ??10/26/2023 4:00 AM T: Report ID: [id number] Reading Location: [id number] Procedure Note Hiral Rodrigues MD - 10/26/2023 EXAM DESCRIPTION: XR HIP LEFT 2 OR 3 VIEWS W PELVIS REASON FOR STUDY: left hip pain Pt brought in from [facility]. Hx of left hip fx [...] Hiral Rodrigues M.D. SN T: Report ID: [id number] Reading Location: [id number] Amalia Boggs DO IMG XR PROCEDURES Final [...] For 1 dose Given 10/26/2023 4:11 AM PHOTO MASK INSPECTOR 5 mg HYDROcodone-acetaminophen (NORCO) 5-325 mg per tablet 1 tablet 1 tablet, oral, Once, On Wed10/26/23 at 0325, For 1 dose, Indications: PainIndications:Pain Given 10/26/2023 4:08 AM PHOTO MASK INSPECTOR 1 tablet documented in this encounter Active and Recently Administered Medications Times are shown in PHOTO MASK INSPECTOR. Scheduled Medication Order 10/24/2023 10/25/2023 10/26/2023 diazePAM (VALIUM) tablet 5 mg (COMPLETED) 5 mg, oral, Once, On Wed10/26/23 at 0358, For 1 dose 0411 (Given - Provid er: Marcelo Sharpe RN) HYDROcodone-acetaminophen (NORCO) 5-325 mg per tablet 1 tablet (COMPLETED) 1 tablet, oral, Once, On Wed10/26/23 at 0325, For 1 dose, Indications: Pain 0408 (Given - Provid er: Marcelo Sharpe RN) documented in this encounter Care Teams Practice Consultant Relationship Specialty Start Date End Date Major Kraft MD PCP - General Internal Medicine 11/07/21 Amos Pabon MD [address] [address] Referring Physician Internal Medicine 10/05/23 documented as of this encounter
--- OUTSIDE RECORDS SUMMARY | 2024-10-19 23:37 | XMS_ITS | Referral Summary ---
Author Organization [facility] Address [address] [place] [address] Care Team Providers Care Internist Name Role Phone Major Kraft MD Primary Care Provider Amos Pabon MD Unavailable [phone] Allergies Active Allergy Reactions Criticality Noted Date [...] often do you attend chur ch or denominational services? Never 09/29/2023 Do you belong to any clubs o r organizations such as oriental orthodox groups, unions, fraternal or athletic groups, or [...] place to sleep or slept in a intermediate (including now)? No 09/29/2023 Personal Safety Answer Date Recorded Have you ever been in or are you currently in a harmful physical or emotional relationship or is someone making you feel afraid or unsafe? Denies 09/28/2023 Sex and Gender Information Value Date Recorded Sex Assigned at Not on file Legal Sex Male 1:24 PM DESIGN LEADER Gender Identity Not on file Sexual Orientation Not on file Occupation Industry Job Start Date Job End Date disabled Not on file Not on file Not on file Last Filed Vital Signs Vital Sign Reading Time Taken Comments Blood Pressure 130/65 10/26/2023 4:38 AM DESIGN LEADER Pulse 68 10/26/2023 4:38 AM DESIGN LEADER Temperature 36.5 ??C (97.7 ??F) 10/26/2023 4:38 AM CS T Respiratory Rate 18 10/26/2023 4:38 AM DESIGN LEADER Oxygen Saturation 96% 10/26/2023 4:38 AM DESIGN LEADER Inhaled Oxygen Concentration - - Weight 90.6 kg (199 lb 11.8 oz) 10/05/2023 7:48 AM DESIGN LEADER Height 170.2 cm (5' 7.01 ) 09/30/2023 7:38 AM CS T Body Mass Index 31.28 09/30/2023 7:38 AM DESIGN LEADER Plan of Treatment Not on file Insurance [facility] Address: [address] [address] [place] [address] [place] [address] Advance Directives For more information, please contact: [phone] * Full Code (Latest Code Status on File) Date Activated Date Inactivated Comments 09/30/2023 7:23 AM 10/05/2023 5:12 PM Care Teams Internist Relationship Specialty Start Date End Date Major Kraft MD PCP - General Internal Medicine 11/07/21 Amos Pabon MD [address] [address] Referring Physician Internal Medicine 10/05/23
--- OUTSIDE RECORDS SUMMARY | 2024-10-19 23:37 | XMS_ITS | Encounter Summary ---
Author Organization [facility] Address [address] [facility] [place] [address] Care Team Providers Care Tire Installer Name Role Phone Major Kraft MD Primary Care Provider + [phone] Eric Oconnell MD Unavailable + [phone] Reason for Visit * Reason Comments Concerns Encounter Details Date Type Department Care Team (Late st Contact Info) Description 11/25/2021 Telephone [facility] - Nephrology [address] [place] [address], [place] [address] Taina Ashley RN Concerns Social [...] PM CST Called patient to follow up deckhand sponge boat from last week. He states he is doing better now. He increased his lactulose and has seen improvement. Also clarified that his disability paperwork has not been received and if he can make sure it was faxed to our office or bring it with him to his appointment wecan review it. He states understanding. RT EXPORT MANAGER * Telephone Encounter - Taina Ashley RN - 11/25/2021 4:12 PM CST Pt called and wants to know if he can have an earlier appt because he says his condition is worsening. Also wants to speak with the licensed master social worker about his pending Social Security disability paperwork. RT EXPORT MANAGER documented in this encounter Plan of Treatment Upcoming Encounters Date Type Department Care Team (Late st Contact Info) Description 11/29/2024 8:30 AM IMPORT EXPORT MANAGER Office Visit [facility] - Orthopedic Surgery [address] [place] [address] Toño Cabrera MD [address] [facility] [address] [place] [address] 01/08/2025 8:00 AM CDT Appointment [facility] [address] [place] [address] 01/08/2025 9:00 AM CDT Office Visit [facility] - GI [address] [facility], [place] [phone] Amos Pabon MD [address] [place] [address] [place] [address] documented as of this encounter Goals Goal [...] filedocumented in this encounter Care Teams Tire Installer Relationship Specialty Start Date End Date Major Kraft MD PCP - General 07/01/21 06/08/22 Eric Oconnell MD Hospitalist 10/10/21 documented as of this encounter
--- OUTSIDE RECORDS SUMMARY | 2024-10-19 23:37 | XMS_ITS | Encounter Summary ---
Author Organization [facility] Address [address] [place] [address] Care Team Providers Care Director Of Graduate Medical Education Name Role Phone Major Kraft MD Primary Care Provider [phone] Eric Oconnell MD Unavailable + [phone] Reason for Visit * Reason Onset Date Comments Care Management 11/11/2021 Encounter Details Date Type Department Care Team (Late st Contact Info) Description 11/11/2021 Telephone [facility] - [address] [facility], [place] [phone] Adilson Raygoza, RN Care Management Social History [...] COVID-19? No / Unsure 10/21/2021 9:44 AM LEAD SLOT TECHNICIAN documented as of this encounter Miscellaneous Notes [...] facility and can speak with his RN. SLOT TECHNICIAN documented in this encounter Plan of Treatment Upcoming Encounters Date Type Department Care Team (Late st Contact Info) Description 11/29/2024 8:30 AM LEAD SLOT TECHNICIAN Office Visit [facility] - Orthopedic Surgery [address] [facility] [place] [address] Toño Cabrera MD [address] [facility] [address] [place] [address] 01/08/2025 8:00 AM CDT Appointment [facility] [address] [place] [phone] 01/08/2025 9:00 AM CDT Office Visit [facility] - GI [address] [facility], [place] [phone] Amos Pabon MD [address] [place] [address] [address] [facility] [place] [address] documented as of this encounter Goals Goal [...] in this encounter Care Teams Director Of Graduate Medical Education Relationship Specialty Start Date End Date Major Kraft MD PCP - General 07/01/21 06/08/22 Eric Oconnell MD Hospitalist 10/10/21 documented as of this encounter
--- OUTSIDE RECORDS SUMMARY | 2024-10-19 23:37 | XMS_ITS | Encounter Summary ---
Author Organization [facility] Address [address] [place] [address] Care Team Providers Care Laundry Operator Wash Room Name Role Phone Major Kraft MD Primary Care Provider Eric Oconnell MD Unavailable + [phone] Reason for Visit * Reason Comments Cirrhosis Encounter Details Date Type Department Care Team (Late st Contact Info) Description 02/16/2022 1:00 PM CDT Office Visit [facility] - GI [address] [facility], [place] [phone] Major Kraft MD [address] [place] [phone] Amos Pabon MD [address] [place] [address] [place] [address] Cirrhosis of liver with ascites, unspecified hepatic [...] ??? vitamin D, ergocalciferol, (DRISDOL) 1.25 MG (60152 UT) capsule Take 1 (one) capsule by [...] noted. Dictated by Stanley Joyce MD (radiology administrator). I, Dr. ALO HEMPHILL MD, [facility] havepersonally reviewed and interpreted this examination/study. This report was electronically signed by ALO HEMPHILL MD, [facility] on 12/18/2021 10:34 AM . US ABDOMEN LIMITED Result Date: 10/21/2021 IMPRESSION: 1.Hepatic cirrhosis with sequela of portal hypertension (recanalization of the umbilical vein) without discrete hepatic lesion. 2.Splenomegaly. 3.No evidence of cholelithiasis or acute cholecystitis. Dictated by Lawrence Meyers D.O. (Box Packer) IDr. CLIFFORD M.D. have pers onally reviewed [...] Report dictated by Shama Landry M.D. (radiology administrator). Dr. ALO Anton MD, [facility] have personally reviewed and interpreted this examination/study. This report was electronically signed by ALO HEMPHILL MD, [facility] on 12/18/2021 10:05 AM . EGD: 09/2021 Esophageal varices s/p band ligation I personally reviewed the old records obtained from other facilities/departments and summarized thedata in this note. Amos Pabon MD commodities manager Gastroenterology and Hepatology Abdominal Organ Transplant [facility] February 16, 2022 Coding Rationale New or est? Established Patient Highest problem complexity: 2 or more stable chronic illnesses Data review: Review of prior external note(s): 1 unique source(s) Review of result(s): 2 unique source(s) Ordering of test(s): 3 or more unique test(s) ordered Discussion of management or test interpretation Highest level of risk: Moderate Suggested code: 68250 documented in this encounter Plan of Treatment Upcoming Encounters Date Type Department Care Team (Late st Contact Info) Description 11/29/2024 8:30 AM CRIMINAL PROFILER Office Visit [facility] - Orthopedic Surgery [address] [facility] [place] [address] Toño Cabrera MD [address] [facility] [address] [place] [address] 01/08/2025 8:00 AM CDT Appointment [facility] [address] [place] [address] 01/08/2025 9:00 AM CDT Office Visit [facility] - GI [address] [facility], [place] [phone] Amos Pabon MD [address] [place] [address] [place] [address] Scheduled Orders Name Type Priority Associated Diagnoses [...] HEPATIC FUNCTION PANEL (02/16/2022 2:26 PM CDT) [facility] Protein Total 8.9(H) 6.0 - 8.3 g/dL 022 3:[address] [facility] Albumin 4.0 3.4 - 5.0 g/dL 02/16/2022 3:[address] [facility] Bilirubin Total 0.5 0.2 - 1.2 mg/dL 01/24 3:[address] [facility] Bilirubin Conjugated 0.3 0.1 - 0.5 mg/dL 02/16/2022 3:50 PM CDT [facility] Bilirubin Unconjugated 0.2 Unconjugated Bilirubin is a calculated value: Reference ranges have not been established. mg/dL 02/16/2022 3:50 PM CDT [facility] Alkaline Phosphatase 130 40 - 150 U/L 02/16/2022 3:50 PM CDT [facility] ALT 20 5 - 55 U/L 02/16/2022 3:50 PM CDT [facility] AST 24 5 - 34 U/L 02/16/2022 3:[address] [facility] Albumin/Globulin Ratio 0.8(L) 1.1 - 2.3 02/16/2022 3:50 PM CDT [facility] Blood BLOOD SPECIMEN / Unknown Lab Venipuncture / Unknown 02/16/2022 2:26 PM CDT 02/16/2022 3:20 PM CDT Amos Pabon MD LAB - CHEMISTRY KURT ZARAGOZA [facility] Organization Address City/State/ZIP Co de Phone Number [address] [address], [facility] [phone] * (ABNORMAL) BASIC METABOLIC PANEL (CALCIUM TOTAL) (02/16/2022 2:26 PM CDT) [facility] BUN 9 7 - 26 mg/dL 02/16/2022 3:[address] [facility] Creatinine 0.76 0.71 - 1.16 mg/dL 02/16/2022 3:50 PM [facility] Sodium 139 136 - 145 mmol/L 02/16/2022 3:50 PM [facility] Potassium 3.7 3.5 - 4.5 mmol/L 02/16/2022 3:50 PM [facility] Chloride 98 98 - 107 mmol/L 02/16/2022 3:50 PM [facility] CO2 31(H) 22 - 29 mmol/L 02/16/2022 3:50 PM [facility] Glucose 70 70 - 115 mg/dL 02/16/2022 3:50 PM [facility] Calcium 10.4(H) 8.4 - 10.2 mg/dL 02/16/2022 3:50 PM [facility] Anion Gap 14 8 - 18 02/16/2022 3:50 PM [facility] BUN/Creatinine Ratio 12 7 - 23 02/16/2022 3:50 PM [facility] Osmolality Calculated 285 270 - 300 mOsm/kg 02/16/2022 3:50 PM [facility] eGFR by CKD-EPI >90 >=90 mL/min/1.7 3 m2 02/16/2022 3:50 PM [facility] Blood BLOOD SPECIMEN / Unknown Lab Venipuncture / Unknown 02/16/2022 2:26 PM CDT 02/16/2022 3:20 PM CDT Amos Pabon MD LAB - CHEMISTRY ORDSukhjinder ZARAGOZA [facility] Organization Address [facility]/State/ZIP Co de Phone Number [facility] [address] [place] [address], [facility] [phone] * PT-INR [facility] (02/16/2022 2:26 PM CDT) PT 13.5 12.1 - 14.8 Seconds 02/16/2022 3:28 PM [facility] INR 1.0 See Comment 02/16/2022 3:28 PM [facility] Comment:The suggested therap eutic range for standard coumadin (warfarin) therapy is an INR of 2.0-3.0. For high-risk patients (Mechanical Mitral Valve Prosthesis, etc.), the suggested prophylactic therapeutic range is an INR of 2.5-3.5. Blood BLOOD SPECIMEN / Unknown Lab Venipuncture / Unknown 02/16/2022 2:26 PM CDT 02/16/2022 3:12 PM CDT Amos Pabon MD LAB - COAGULATION OR DERABLES [facility] [address] [place] [address], [facility] [phone] * CBC W/O DIFFERENTIAL (02/16/2022 2:26 PM CDT) WBC 9.7 3.5 - 10.5 10? 3 /uL 02/16/2022 3:40 PM [facility] RBC 4.61 4.30 - 5.70 10? 6 /uL 02/16/2022 3:40 PM [facility] Hemoglobin 14.6 12.0 - 17.6 g/dL 02/16/2022 3:40 PM [facility] Hematocrit 43.5 35.2 - 51.7 % 02/16/2022 3:40 PM [facility] MCV 94.4 80.7 - 98.3 fL 02/16/2022 3:40 PM [facility] MCH 31.7 26.7 - 34.0 pg 02/16/2022 3:40 PM [facility] MCHC 33.6 30.8 - 35.9 g/dL 02/16/2022 3:40 PM [facility] Platelet Count 184 150 - 400 10? 3 /uL 02/16/2022 3:40 PM [facility] RDW-SD 49.4 36.0 - 50.0 fL 02/16/2022 3:40 PM [facility] RDW-CV 14.5 11.2 - 14.8 % 02/16/2022 3:40 PM [facility] MPV 11.6 9.4 - 12.9 fL 02/16/2022 3:40 PM CDT [facility] nRBC Absolute 0.00 0 10? 3 /uL 02/16/2022 3:40 PM CDT [facility] nRBC Auto 0.0 0 /100 WBC 02/16/2022 3:40 PM CDT [facility] Blood BLOOD SPECIMEN / Unknown Lab Venipuncture / Unknown 02/16/2022 2:26 PM CDT 02/16/2022 3:19 PM CDT Amos Pabon MD LAB - HEMATOLOGY ORD ERABLES [address] [address], [facility] [phone] * ALPHA FETOPROTEIN BLOOD TUMOR MARKER (02/16/2022 2:26 PM CDT) Alpha-Fetoprote in Tumor Marker 2.9 <=8.3 ng/mL 02/16/2022 4:09 PM CDT [facility] Comment: AFP values will vary depending on testing procedure used. Results are not comparable across different methods. AFP values obtained by [facility] using an Jenkins Alinity Immunoassay. Blood BLOOD SPECIMEN / Unknown Lab Venipuncture / Unknown 02/16/2022 2:26 PM CDT 02/16/2022 3:24 PM CDT Amos Pabon MD LAB - CHEMISTRY ORDE RABVIDA Performing Organization Address City/[facility]/ZIP Co de Phone Number [address] [address], [place] [phone] documented in this encounter Visit Diagnoses Diagnosis Cirrhosis of liver with ascites, unspecified hepatic cirrhosis type (HCC)- Primary Alcoholic cirrhosis of liver without ascites (HCC) Alcoholic cirrhosis of liver Liver failure without hepatic coma, unspecified chronicity (HCC) Depression, unspecified depression type Alcohol use, unspecified with other alcohol-induced disorder (HCC) documented in this encounter Care Teams Laundry Operator Wash Room Relationship Specialty Start Date End Date Major Kraft MD PCP - General 07/01/21 06/08/22 Eric Oconnell MD Hospitalist 10/10/21 documented as of this encounter
--- OUTSIDE RECORDS SUMMARY | 2024-10-19 23:37 | XMS_ITS | Clinical Summary ---
Author Organization [facility] Address [address] [place] [address] Care Team Providers Care Rail Washer Name Role Phone Major Kraft MD Primary Care Provider [phone] Amos Pabon MD Unavailable [phone] Allergies Active Allergy Reactions Criticality Noted Date [...] Asked; Counseling Given: Not Answered [facility] Utilities Answer Date Recorded In the past 12 months has th e [employer], gas, oil, or water [email or web address] threatened to shut off services in your [...] week 09/29/2023 How often do you attend [facility] or mormon services? Never 09/29/2023 Do you belong to any clubs o r organizations such as scientologist groups, unions, fraternal or athletic groups, or [...] place to sleep or slept in a residential (including now)? No 09/29/2023 Personal Safety Answer Date Recorded Have you ever been in or are you currently in a harmful physical or emotional relationship or is someone making you feel afraid or unsafe? Denies 09/28/2023 Sex and Gender Information Value Date Recorded Sex Assigned at Not on file Legal Sex Male 1:24 PM NEPHROLOGIST Gender Identity Not on file Sexual Orientation Not on file Occupation Industry Job Start Date Job End Date disabled Not on file Not on file Not on file Obstetrics History Last Filed Vital Signs Vital Sign Reading Time Taken Comments Blood Pressure 130/65 10/26/2023 4:38 AM NEPHROLOGIST Pulse 68 10/26/2023 4:38 AM NEPHROLOGIST Temperature 36.5 ??C (97.7 ??F) 10/26/2023 4:38 AM CS T Respiratory Rate 18 10/26/2023 4:38 AM NEPHROLOGIST Oxygen Saturation 96% 10/26/2023 4:38 AM NEPHROLOGIST Inhaled Oxygen Concentration - - Weight 90.6 kg (199 lb 11.8 oz) 10/05/2023 7:48 AM NEPHROLOGIST Height 170.2 cm (5' 7.01 ) 09/30/2023 7:38 AM CS T Body Mass Index 31.28 09/30/2023 7:38 AM NEPHROLOGIST Plan of Treatment Health Maintenance Due Date [...] patient's age to complete this topic Insurance [facility] MEDICARE Advance Directives For more information, please contact: [phone] * Full Code (Latest Code Status on File) Date Activated Date Inactivated Comments 09/30/2023 7:23 AM 10/05/2023 5:12 PM Care Teams Rail Washer Relationship Specialty Start Date End Date Major Kraft MD PCP - General Internal Medicine 11/07/21 Amos Pabon MD [address] [address] Referring Physician Internal Medicine 10/05/23
--- OUTSIDE RECORDS SUMMARY | 2024-10-19 23:37 | XMS_ITS | Encounter Summary ---
Author Organization [facility] Address [address] [facility] [place] [address] Care Team Providers Care Oil Well Logger Name Role Phone Major Kraft MD Primary Care Provider + [phone] Eric Oconnell MD Unavailable + [phone] Reason for Visit * Reason Onset Date Comments Follow-up 11/13/2021 Encounter Details Date Type Department Care Team (Late st Contact Info) Description 11/13/2021 Telephone [facility] - [address] [place] [phone] Sheridan Ng, RN Follow-up Social History Tobacco [...] COVID-19? No / Unsure 10/21/2021 9:44 AM PRESSURE SEALER AND TESTER documented as of this encounter Miscellaneous Notes * Telephone Encounter - Sheridan Ng RN - 11/13/2021 4:12 PM CST Called and spoke with RN at [facility]. Relayed message from Dr. Pabon: Let us have him do a CBC, CMP, INR, Amylase, Lipase, PeTH test done here or locally. Recent US was overall unremarkable. If not feeling better needs to go to ER. They will lab fax results to our office. RN states understanding of message. SURE SEALER AND TESTER documented in this encounter Plan of Treatment Upcoming Encounters Date Type Department Care Team (Late st Contact Info) Description 11/29/2024 8:30 AM PRESSURE SEALER AND TESTER Office Visit [facility] - Orthopedic Surgery [address] [place] [address] Toño Cabrera MD [address] [facility] 280 [place] [address] 01/08/2025 8:[address] [facility] 12[address] [place] [phone] 01/08/2025 9:00 AM CDT Office Visit [facility] - GI [address] [facility], [place] [phone] Amos Pabon MD [address] [place] [address] [place] [address] documented as of this encounter Goals Goal [...] on filedocumented in this encounter Care Teams Oil Well Logger Relationship Specialty Start Date End Date Major Kraft MD PCP - General 07/01/21 06/08/22 Eric Oconnell MD Hospitalist 10/10/21 documented as of this encounter
--- OUTSIDE RECORDS SUMMARY | 2024-10-19 23:37 | XMS_ITS | Encounter Summary ---
Author Organization [facility] Address [address] [place] [address] Care Team Providers Care Media Executive Name Role Phone Major Kraft MD Primary Care Provider [phone] Eric Oconnell MD Unavailable + [phone] Reason for Referral * Radiology Services (Routine) - Closed Specialty Diagnoses / Procedures Referred By Contac t Referred To Contact Diagnoses Cirrhosis of liver with ascites, unspecified hepatic cirrhosis type (HCC) Procedures US ABDOMEN LIMITED Amos Pabon MD [address] [place] [address] [facility] [address] [place] [address] Referral ID Status Reason Start Date Expiration Date Visits Re quested Visits Authorized [id number] Closed 10/01/2021 10/01/2022 1 1 SSAYIST Reason for Visit * Radiology Services (Routine) - Closed Specialty Diagnoses / Procedures Referred By Contac t Referred To Contact Diagnoses Cirrhosis of liver with ascites, unspecified hepatic cirrhosis type (HCC) Procedures US ABDOMEN LIMITED Amos Pabon MD [address] [facility] [place] [address] [facility] [address] [place] [address] Referral ID Status Reason Start Date Expiration Date Visits Re quested Visits Authorized [id number] Closed 10/01/2021 10/01/2022 1 1 Encounter Details Date Type Department Care Team (Latest Contact Info) Description 10/21/2021 9:46 AM BIOASSAYIST - 10/21/2021 11:59 PM BIOASSAYIST Hospital Encounter [facility] [address] [place] [address] Amos Pabon MD [address] [place] [address] Discharge Disposition: Home or Self Care Social [...] COVID-19? No / Unsure 10/21/2021 9:44 AM BIOASSAYIST documented as of this encounter Medications at [...] lesions. Will continue to follow for now. SSAYIST documented in this encounter Plan of Treatment Upcoming Encounters Date Type Department Care Team (Late st Contact Info) Description 11/29/2024 8:30 AM BIOASSAYIST Office Visit [facility] - Orthopedic Surgery [address] [place] [address] Toño Cabrera MD [address] [facility] [address] [place] [address] 01/08/2025 8:00 AM CDT Appointment [facility] [address] [place] [address] 01/08/2025 9:00 AM CDT Office Visit [facility] - GI [address] [facility], [place] [address] Amos Pabon MD [address] [facility] 2L [place] [address] documented as of this encounter Goals Goal [...] ABDOMEN LIMITED Routine 10/21/2021 10 :20 AM BIOASSAYIST Cirrhosis of liver with ascites, unspecified hepatic cirrhosis type (HCC) documented in this encounter Results * US ABDOMEN LIMITED (10/21/2021 10:20 AM BIOASSAYIST) Anatomical Region Laterality Modality Abdomen Ultrasound 10/21/2021 10:4 4 AM BIOASSAYIST Impressions 10/21/2021 11:38 AM BIOASSAYIST IMPRESSION: 1.Hepatic cirrhosis with sequela of portal hypertension (recanalization of the umbilical vein) without discrete hepatic lesion. 2.Splenomegaly. 3.No evidence of cholelithiasis or acute cholecystitis. Dictated by Lawrence Meyers D.O. (Program Support Specialist) I, Dr. BINA PEREZ M.D. have personally reviewed and interpreted this examination/study. This report was electronically signed by BINA PEREZ M.D. ??on 10/21/2021 11:38 AM . Narrative 10/21/2021 11:38 AM BIOASSAYIST EXAMINATION: Limited abdominal sonogram HISTORY: K74.60: Cirrhosis [...] acute cholecystitis. Dictated by Lawrence Meyers D.O. (Program Support Specialist) I, Dr. BINA PEREZ M.D. have personally reviewed and interpreted this examination/study. This report was electronically signed by BINA PEREZ M.D. on10/21/2021 11:38 AM . Amos Pabon MD ORDERABLES documented in this encounter Visit Diagnoses Diagnosis Cirrhosis of liver with ascites, unspecified hepatic cirrhosis type (HCC) documented in this encounter Care Teams Media Executive Relationship Specialty Start Date End Date Major Kraft MD PCP - General 07/01/21 06/08/22 Eric Oconnell MD Hospitalist 10/10/21 documented as of this encounter
--- OUTSIDE RECORDS SUMMARY | 2024-10-19 23:37 | XMS_ITS | Encounter Summary ---
Author Organization [facility] Address [address] [place] [address] Care Team Providers Care Recreational Programs Director Name Role Phone Major Kraft MD Primary Care Provider + [phone] Eric Oconnell MD Unavailable + [phone] Reason for Visit * Reason Onset Date Comments Pre-op Instructions 02/27/2022 Encounter Details Date Type Department Care Team (Late st Contact Info) Description 02/27/2022 Patient Outreach [facility] [address] [place] [phone] Sheridan Dorman RN Pre-op Instructions Social History [...] - 02/27/2022 10:08 AM CDT Pt at [facility]. He confirms his appt. He report he understands instructions and gisell will be his six horse hitch driver. Refaxed info Patient: Lukas Diaz 83 [...] on it. ?? -You MUST have a six horse hitch driver to drive you home. (You can NOT take a bus, cab, LYFT or UBER) ?? -You will be at our facility from start to finish (registration, pre op, procedure, recovery) for approximately 4 hours total. ?? -Your procedure will be in our [facility]. The new address will be at [address] [place] [address] to the new parking garage. ?? -Come in on the ORANGE elevators of the parking garage. Endoscopy is on the LEVEL 1 of the hospital. [facility] ?? -Please bring a current list of your medications ?? -Main endoscopy department number is [phone] ?? Prior to arrival, we will need to be aware of any recent COVID exposures or symptoms. Masks are required while in the hospital documented in this encounter Plan of Treatment Upcoming Encounters Date Type Department Care Team (Late st Contact Info) Description 11/29/2024 8:30 AM CERTIFIED PERFORMANCE TECHNOLOGIST Office Visit [facility] - Orthopedic Surgery [address] [place] [address] Toño Cabrera MD 1031 [facility] 280 [place] [address] 01/08/2025 8:00 AM CDT Appointment [facility] [address] [place] [phone] 01/08/2025 9:00 AM CDT Office Visit [facility] - GI [address] [facility], [place] [address] Amos Pabon MD [address] [place] [address] [place] [address] documented as of this encounter Goals Goal [...] on filedocumented in this encounter Care Teams Recreational Programs Director Relationship Specialty Start Date End Date Major Kraft MD PCP - General 07/01/21 06/08/22 Eric Oconnell MD Hospitalist 10/10/21 documented as of this encounter
--- OUTSIDE RECORDS SUMMARY | 2024-10-19 23:37 | XMS_ITS | Encounter Summary ---
Author Organization [facility] Address [address] [address] Care Team Providers Care Flipping Machine Operator Name Role Phone Major Kraft MD Primary Care Provider + [phone] Eric Oconnell MD Unavailable + [phone] Reason for Visit * Reason Onset Date Comments Concerns 02/27/2022 Encounter Details Date Type Department Care Team (Late st Contact Info) Description 02/27/2022 Telephone [facility] - Nephrology [address] [facility], [place] [address] Ellyn Payne RN Concerns Social History Tobacco [...] facility he's at not to change. Call #[phone], speak with 5 nurses station. documented in this encounter Plan of Treatment Upcoming Encounters Date Type Department Care Team (Late st Contact Info) Description 11/29/2024 8:30 AM DEMAND EQUIPMENT REPAIRER Office Visit [facility] - Orthopedic Surgery [address] [facility] [place] [address] Toño Cabrera MD [address] [facility] 280 [place] [address] 01/08/2025 8:00 AM CDT Appointment [facility] [address] [place] [address] 01/08/2025 9:00 AM CDT Office Visit [facility] - GI [address] [place] [address], [place] [address] Amos Pabon MD [address] [place] [address] [place] [address] documented as of this encounter Goals Goal [...] on filedocumented in this encounter Care Teams Flipping Machine Operator Relationship Specialty Start Date End Date Major Kraft MD PCP - General 07/01/21 06/08/22 Eric Oconnell MD Hospitalist 10/10/21 documented as of this encounter
--- OUTSIDE RECORDS SUMMARY | 2024-10-19 23:37 | XMS_ITS | Encounter Summary ---
Author Organization [facility] Address [address] [place] [address] Care Team Providers Care Human Capital Manager Name Role Phone Major Kraft MD Primary Care Provider + [phone] Eric Oconnell MD Unavailable + [phone] Reason for Visit * Reason Onset Date Comments Med Question 11/21/2021 Encounter Details Date Type Department Care Team (Late st Contact Info) Description 11/21/2021 Telephone [facility] - [address] [facility], [place] [phone] Poppy Newsome, ALFREDO Med Question Social History [...] conversation with following message to the patients [facility]: I apologize for the confusion regarding patients pain medication. Dr. Pabon is not the prescribing physician for Tramadol so we can not fax a script for Tramadol. Our understanding is that the [facility] doctor [facility] the jail was seeking approval for 50 mg every 6 hours as needed for pain. Patient can have this per liver MD but we are not prescribing for chronic pain. Patient will need pain management/PCP direction if needing more direction for chronic pain. [employer] * Telephone Encounter - Poppy Newsome RN - 11/21/2021 11:41 AM SUPERVISOR SULFURIC ACID PLANT Patient called again in regards to Tramadol order. RN spoke with patient and DON at facility.We fill fax over the note from Dr. Pabon. RN advised patient, and RN at the facility, that we will not be prescribing the medicine, but it is ok for the patient to take Tramadol. Patient verbalized understanding. [employer] documented in this encounter Plan of Treatment Upcoming Encounters Date Type Department Care Team (Late st Contact Info) Description 11/29/2024 8:30 AM SUPERVISOR SULFURIC ACID PLANT Office Visit [facility] - Orthopedic Surgery [address] [place] [address] Toño Cabrera MD 10[address] [facility] 280 [place] [address] 01/08/2025 8:00 AM CDT Appointment [facility] [address] [place] [address] 01/08/2025 9:00 AM CDT Office Visit [facility] - GI [address] [facility], [place] [address] Amos Pabon MD [address] [place] [address] [place] [address] documented as of this encounter Goals Goal [...] on filedocumented in this encounter Care Teams Human Capital Manager Relationship Specialty Start Date End Date Major Kraft MD PCP - General 07/01/21 06/08/22 Eric Oconnell MD Hospitalist 10/10/21 documented as of this encounter
--- OUTSIDE RECORDS SUMMARY | 2024-10-19 23:37 | XMS_ITS | Encounter Summary ---
Author Organization [facility] Address [address] [facility] [place] [address] Care Team Providers Care Mingler Operator Name Role Phone Major Kraft MD Primary Care Provider + [phone] Eric Oconnell MD Unavailable + [phone] Reason for Visit * Reason Onset Date Comments Results 02/24/2022 Encounter Details Date Type Department Care Team (Late st Contact Info) Description 02/24/2022 Telephone [facility] - [address] [place] [phone] Sheridan Ng, RN Results Social History Tobacco [...] call. Called and spoke to RN at [facility] and faxed order for labs and medication changes to [phone]. documented in this encounter Plan of Treatment Upcoming Encounters Date Type Department Care Team (Late st Contact Info) Description 11/29/2024 8:30 AM CABLE SPLICER ASSISTANT Office Visit [facility] - Orthopedic Surgery [address] [facility] [place] [address] Toño Cabrera MD 1031 [facility] 280 [place] [address] 01/08/2025 8:00 AM CDT [facility]ointment [facility] [address] [place] [address] 01/08/2025 9:00 AM CDT Office Visit [facility] - GI [address] [place] [address], [place] [address] Amos Pabon MD [address] [place] [address] [place] [address] Scheduled Orders Name Type Priority Associated Diagnoses [...] monitoring documented in this encounter Care Teams Mingler Operator Relationship Specialty Start Date End Date Major Kraft MD PCP - General 07/01/21 06/08/22 Eric Oconnell MD Hospitalist 10/10/21 documented as of this encounter
--- OUTSIDE RECORDS SUMMARY | 2024-10-19 23:37 | XMS_ITS | Encounter Summary ---
Author Organization [facility] Address [address] [facility] [place] [address] Care Team Providers Care Women'S Activities Adviser Name Role Phone Major Kraft MD Primary Care Provider + [phone] Eric Oconnell MD Unavailable + [phone] Encounter Details Date Type Department Care Team [...] COVID-19? No / Unsure 10/21/2021 9:44 AM PRACTICE PROFESSIONAL documented as of this encounter Plan of Treatment Upcoming Encounters Date Type Department Care Team (Late st Contact Info) Description 11/29/2024 8:30 AM PRACTICE PROFESSIONAL Office Visit [facility] - Orthopedic Surgery [address] [place] [address] Toño Cabrera MD [address] [address] 01/08/2025 8:00 AM CDT Appointment [address] [phone] 01/08/2025 9:00 AM CDT Office Visit [facility] - GI [address] [facility], [place] [address] Amos Pabon MD [address] [place] [address] [place] [address] documented as of this encounter Goals Goal [...] on filedocumented in this encounter Care Teams Women'S Activities Adviser Relationship Specialty Start Date End Date Major Kraft MD PCP - General 07/01/21 06/08/22 Eric Oconnell MD Hospitalist 10/10/21 documented as of this encounter
--- OUTSIDE RECORDS SUMMARY | 2024-10-19 23:37 | XMS_ITS | Encounter Summary ---
Author Organization [facility] Address [address] [facility] [place] [address] Care Team Providers Care Warehouser Name Role Phone Major Kraft MD Primary Care Provider + [phone] Eric Oconnell MD Unavailable + [phone] Reason for Visit * Auth/Cert Specialty Diagnoses / Procedures Referred By Rod t Referred To Contact Diagnoses Other cirrhosis of liver (HCC) Other cirrhosis of liver [K74.69] Procedures [place] EGD FLEX TRANSORAL DX [place] E[place] FLEX TRANSORAL W BX SNGL OR MULT ESOPHAGOGASTRODUODENOSCOPY (EGD) DIAGNOSTIC Referral ID Status Reason Start Date Expiration Date Visits Re quested Visits Authorized [id number] 1 1 Encounter Details Date Type Department Care Team (Latest Contact Info) Description 03/05/2022 8:57 AM CDT - 03/05/2022 10:46 AM CDT Hospital Encounter [facility] [address] [place] [phone] Amos Pabon MD 12[address] [facility] 2L [facility] [place] [address] Surgery General Discharge Disposition: [facility] Facility Social History Tobacco Use Types Packs/Day [...] ask them during your visits. ?? Copyright [employer] 2020 Information is for End User's use only and may not be sold, redistributed or otherwise used for commercial purposes. All illustrations and images included in CareNotes?? are the copyrighted property of [employer], [employer]. or [employer] The above information is an educational consultant only. It is not intended as medical [...] 02/19/2023 vitamin D, ergocalciferol, (DRISDOL) 1.25 MG (99077 UT) capsule Take 1 (one) capsule by [...] ??? vitamin D, ergocalciferol, (DRISDOL) 1.25 MG (55480 UT) capsule Take 1 (one) capsule by [...] acute cholecystitis. Dictated by Lawrence Meyers D.O. (Spring Machine Operator) I, Dr. CLIFFORD COTA M.D. have pers [...] Contact Info) Description 11/29/2024 8:30 AM BIOLOGY TUTOR Office Visit [facility] - Orthopedic Surgery [address] [place] [address] Toño Cabrera MD 1031 [facility] 280 [place] [address] 01/08/2025 8:00 AM CDT Appointment [facility] [address] [place] [address] 01/08/2025 9:00 AM CDT Office Visit [facility] - GI [address] [facility], [place] [address] Amos Pabon MD [address] [place] [address] 2L [facility] [place] [address] documented as of this encounter Goals Goal [...] AM CDT Other cirrhosis of liver (HCC) [place] EGD FLEX TRANSORAL DX 03/05/2022 9:43 AM CDT Other cirrhosis of liver (HCC) [facility] at [facility] EGD Routine 03/05/2022 9:23 AM CDT documented in this encounter Results * PATHOLOGY TISSUE (03/05/2022 9:47 AM CDT) Case Report Surgical Pathology Report ? Case: [id number] ? Authorizing Provider: ??Amos Pabon MD ?Collected: [...] pylori organisms (H&E examination) 03/06/2022 12:19 PM [facility] Microscopic Description and Comment Microscopic examination substantiates the final diagnosis. 03/06/2022 12:19 PM [facility] Clinical History The patient [...] cassette A1. DF 03/06/2022 12:19 PM [facility] Disclaimer The performance characteristics of all immunohistochemical and indirect immunofluorescence stains (if any) cited in this report were determined by the Histopathology Laboratory of [facility]. Some of these tests were developed [...] attending (teaching) pathologist. 03/06/2022 12:19 PM T [facility] Embedded Images 03/06/2022 12:19 PM T [facility] Biopsy, NOS GASTRIC CONTENTS SPECIMEN / Unknown 03/05/2022 9:47 AM CDT 03/05/2022 11:35 AM CDT Comment:Pre-op diagnosis: Other cirrhosis of liver [K74.69] Amos Pabon MD LAB - PATHOLOGY/CYTO LOGY ORDERABLES Performing Organization Address [facility]State/[facility] Co de Phone Number [facility] [address] [place], [place] [id number] [place] [address] * EGD (03/05/2022 9:23 AM CDT) Report [...] Procedure Code(s): ? --- Professional --- ? 40473, Esophagogastroduode noscopy, flexible, transoral; with biopsy, ? single or multiple Diagnosis Code(s): ?--- Professional --- ?K21.0, Gastro-esophageal reflux disease with ?esophagitis ?K22.8, Other specified diseases of esophagus ?K25.9, Gastric ulcer, unspecified as acute or ?chronic, without hemorrhage or perforation ?I85.00, Esophageal varices without bleeding CPT copyright 2019 [employer]. All rights reserved. The codes documented in this report are preliminary and upon medical billing specialist review may be revised to meet current compliance requirements. Amos Pabon, 03/05/2022 9:59:19 AM Note Initiated On: 03/05/2022 9:23 AM Number of Addenda: 0 ? [facility] ? [address] [place], [place] [id number] [place] [address] PROVATION 03/05/2022 9:23 AM CDT Amos Pabon MD GI PROCEDURE ORDERAB LES [facility] documented in this encounter Visit Diagnoses [...] (GI) documented in this encounter Care Teams Warehouser Relationship Specialty Start Date End Date Major Kraft MD PCP - General 07/01/21 06/08/22 Eric Oconnell MD Hospitalist 10/10/21 documented as of this encounter
--- OUTSIDE RECORDS SUMMARY | 2024-10-19 23:37 | XMS_ITS | Encounter Summary ---
Author Organization [facility] Address [address] [place] [address] Care Team Providers Care Offset Plate Preparation Supervisor Name Role Phone Major Kraft MD Primary Care Provider [phone] Eric Oconnell MD Unavailable + [phone] Encounter Details Date Type Department Care Team (Late st Contact Info) Description 12/18/2021 7:27 AM TREATING PLANT OPERATOR Anesthesia Event [facility] [address] [place] [address] Everardo Villegas MD [address] [place] [address] Alicia Garcia, LEATHER STAMPER-TURNAROUND PLANNER [address] [place] [address] Anesthesia Record Procedure Summary Procedure [...] (H) (12/17/2021) eGFR by CKD-EPI >90 (12/17/2021) TING PLANT OPERATOR documented in this encounter Plan of Treatment Upcoming Encounters Date Type Department Care Team (Late st Contact Info) Description 11/29/2024 8:30 AM TREATING PLANT OPERATOR Office Visit [facility] - Orthopedic Surgery [address] [place] [address] Toño Cabrera MD 1031 [facility] 280 [place] [address] 01/08/2025 8:00 AM CDT Appointment [facility] [address] [place] [address] 01/08/2025 9:00 AM CDT Office Visit [facility] - GI 12[address] [facility], [place] [address] Amos Pabon MD [address] [place] [address] [place] [address] documented as of this encounter Goals Goal [...] on filedocumented in this encounter Care Teams Offset Plate Preparation Supervisor Relationship Specialty Start Date End Date Major Kraft MD PCP - General 07/01/21 06/08/22 Eric Oconnell MD Hospitalist 10/10/21 documented as of this encounter
--- OUTSIDE RECORDS SUMMARY | 2024-10-19 23:37 | XMS_ITS | Encounter Summary ---
Author Organization [facility] Address [address] [place] [address] Care Team Providers Care Joy Operator Name Role Phone Major Kraft MD Primary Care Provider [phone] Amos Pabon MD Unavailable [phone] Encounter Details Date Type Department Care Team (Late st Contact Info) Description 12/16/2023 Documentation [facility] Social Work [facility]0 [facility] [place] [address] Jazmín Leonardo Social History Tobacco Use Types Packs/Day Years Used Date Smoking Tobacco: Every Day Cigarettes 0.3 18 [facility] Utilities Answer Date Recorded In the past 12 months has th [employer] electric, gas, oil, or water company threatened [...] often do you attend chur ch or judaism services? Never 09/29/2023 Do you belong to any clubs o r organizations such as lutheran groups, unions, fraternal or athletic groups, or [...] place to sleep or slept in a [facility] (including now)? No 09/29/2023 Personal Safety Answer Date Recorded Have you ever been in or are you currently in a harmful physical or emotional relationship or is someone making you feel afraid or unsafe? Denies 09/28/2023 Sex and Gender Information Value Date Recorded Sex Assigned at Not on file Legal Sex Male 1:24 PM PIPELINE OPERATOR Gender Identity Not on file Sexual Orientation Not on file Occupation Industry Job Start Date Job End Date disabled Not on file Not on file Not on file documented as of this encounter Progress Notes * Jazmín Leonardo - 12/16/2023 11:24 AM CST Medical Stabilization Peer Manager Agency Phone Follow-Up Contact to patient for MSUFollowUpCallTimeline: 60 Day follow up contact. Contact was MSUCallAttempt: Unsuccessful. Number listed is incorrect Jazmín Leonardo 11:24 AM 12/16/23 LINE OPERATOR documented in this encounter Plan of Treatment Not on file documented as of this encounter Visit Diagnoses Not on filedocumented in this encounter Care Teams Joy Operator Relationship Specialty Start Date End Date Major Kraft MD PCP - General Internal Medicine 11/07/21 Amos Pabon MD [address] [address] Referring Physician Internal Medicine 10/05/23 documented as of this encounter
--- OUTSIDE RECORDS SUMMARY | 2024-10-19 23:37 | XMS_ITS | Encounter Summary ---
Author Organization [facility] Address [address] [facility] [place] [address] Care Team Providers Care Powder Operator Name Role Phone Major Kraft MD Primary Care Provider + [phone] Eric Oconnell MD Unavailable + [phone] Reason for Visit * Reason Onset Date Comments Pain 11/19/2021 Encounter Details Date Type Department Care Team (Late st Contact Info) Description 11/19/2021 Telephone [facility] - [address] [phone] Anai Hahn RN Pain Social History Tobacco [...] COVID-19? No / Unsure 10/21/2021 9:44 AM HOT METAL CAR OPERATOR documented as of this encounter Miscellaneous Notes * Telephone Encounter - Sheridan Ng RN - 11/21/2021 9:14 AM CST Called patients living facility and relayed message from Dr. Pabon that it is okay for the patient to take 50 mg Tramadol every 6 hours as needed for pain. RN Valeria states understanding. METAL CAR OPERATOR * Telephone Encounter - Haresh Dickerson RN - 11/21/2021 8:42 AM CST Pt calls triage re: identical issue. Clarified with pt he is seeking tramadol q6h, or qid dosing for pain. METAL CAR OPERATOR * Telephone Encounter - Anai Hahn [...] mg still and will call Clarita back METAL CAR OPERATOR * Telephone Encounter - Anai Hahn RN - 11/19/2021 10:35 AM CST Patient called looking for approval on increasing Tramadol dose. Patient is getting it through doctor at [facility] but needs approval from Dr. Pabon first.Patient is having a lot of joint pain. METAL CAR OPERATOR documented in this encounter Plan of Treatment Upcoming Encounters Date Type Department Care Team (Late st Contact Info) Description 11/29/2024 8:30 AM HOT METAL CAR OPERATOR Office Visit [facility] - [facility] [address] [facility] [place] [address] Toño Cabrera MD 1031 [facility] 280 [place] [address] 01/08/2025 8:00 AM CDT Appointment [address] [phone] 01/08/2025 9:00 AM CDT Office Visit [facility] - GI 12[address] [facility], [place] [address] Amos Pabon MD [facility] [place] [address] documented as of this encounter Goals Goal [...] on filedocumented in this encounter Care Teams Powder Operator Relationship Specialty Start Date End Date Major Kraft MD PCP - General 07/01/21 06/08/22 Eric Oconnell MD Hospitalist 10/10/21 documented as of this encounter
--- OUTSIDE RECORDS SUMMARY | 2024-10-19 23:37 | XMS_ITS | Encounter Summary ---
Author Organization [facility] Address [address] [facility] [place] [address] Care Team Providers Care Office Nurse Practitioner Name Role Phone Major Kraft MD Primary Care Provider + [phone] Encounter Details Date Type Department Care Team [...] COVID-19? No / Unsure 10/01/2021 10:22 AM SALVAGE WINDER AND INSPECTOR documented as of this encounter Plan of Treatment Upcoming Encounters Date Type Department Care Team (Late st Contact Info) Description 11/29/2024 8:30 AM SALVAGE WINDER AND INSPECTOR Office Visit [facility] - Orthopedic Surgery [address] [place] [address] Toño Cabrera MD 1031 [facility] 280 [place] [address] 01/08/2025 8:00 AM CDT Appointment [facility] [address] [place] [address] 01/08/2025 9:00 AM CDT Office Visit [facility] - GI 12[address] [facility], [place] [address] Amos Pabon MD [facility] [place] [address] documented as of this encounter Goals Goal [...] on filedocumented in this encounter Care Teams Office Nurse Practitioner Relationship Specialty Start Date End Date Major Kraft MD PCP - General 07/01/21 06/08/22 documented as of this encounter
--- OUTSIDE RECORDS SUMMARY | 2024-10-19 23:37 | XMS_ITS | Encounter Summary ---
Author Organization [facility] Address [address] [facility] [place] [address] Care Team Providers Care Bale Sewer Name Role Phone Major Kraft MD Primary Care Provider [phone] Eric Oconnell MD Unavailable + [phone] Reason for Visit * Reason Onset Date Comments Med Question 12/22/2021 Encounter Details Date Type Department Care Team (Late st Contact Info) Description 12/22/2021 Telephone [facility] - Orthopedics [address] [place] [address] David Burns MD [address] [place] [address] Med Question Social History Tobacco [...] not helping him. He is in a Senior Care Facility. [facility] [phone] EMIOLOGY INVESTIGATOR documented in this encounter Plan of Treatment Upcoming Encounters Date Type Department Care Team (Late st Contact Info) Description 11/29/2024 8:30 AM EPIDEMIOLOGY INVESTIGATOR Office Visit [facility] - Orthopedic Surgery [address] [facility] [place] [address] Toño Cabrera MD 1031 [facility] 280 [place] [address] 01/08/2025 8:[address] [facility] [address] [place] [address] 01/08/2025 9:00 AM CDT Office Visit [facility] - GI [address] [place] [address], [place] [address] Amos Pabon MD [address] [place] [address] [place] [address] documented as of this encounter Goals Goal [...] on filedocumented in this encounter Care Teams Bale Sewer Relationship Specialty Start Date End Date Major Kraft MD PCP - General 07/01/21 06/08/22 Eric Oconnell MD Hospitalist 10/10/21 documented as of this encounter
--- OUTSIDE RECORDS SUMMARY | 2024-10-19 23:37 | XMS_ITS | Encounter Summary ---
Author Organization [facility] Address [address] [facility] [place] [address] Care Team Providers Care Food Court Team Member Name Role Phone Major Kraft MD Primary Care Provider + [phone] Eric Oconnell MD Unavailable + [phone] Reason for Visit * Reason Onset Date Comments Medication Issue 10/22/2021 Encounter Details Date Type Department Care Team (Late st Contact Info) Description 10/22/2021 Telephone [facility] - [address] [place] [address] [place] [phone] Fouzia Payne RN Medication Issue Social History [...] COVID-19? No / Unsure 10/21/2021 9:44 AM HEAD OPERATOR documented as of this encounter Miscellaneous [...] results on recent US per ALFREDO Swartz OPERATOR documented in this encounter Plan of Treatment Upcoming Encounters Date Type Department Care Team (Late st Contact Info) Description 11/29/2024 8:30 AM HEAD OPERATOR Office Visit [facility] - [facility] [address] [facility] [place] [address] Toño Cabrera MD 1031 [facility] 280 [place] [address] 01/08/2025 8:00 AM CDT Appointment [facility] [address] [place] [address] 01/08/2025 9:00 AM CDT Office Visit [facility] - GI 1225 [facility], [place] [address] Amos Pabon MD [address] [place] [address] [address] [place] [address] documented as of this encounter Goals Goal [...] on filedocumented in this encounter Care Teams Food Court Team Member Relationship Specialty Start Date End Date Major Kraft MD PCP - General 07/01/21 06/08/22 Eric Oconnell MD Hospitalist 10/10/21 documented as of this encounter
--- OUTSIDE RECORDS SUMMARY | 2024-10-19 23:37 | XMS_ITS | Encounter Summary ---
Author Organization [facility] Address [address] [place] [address] Care Team Providers Care Assembling Machine Operator Name Role Phone Major Kraft MD Primary Care Provider [phone] Eric Oconnell MD Unavailable + [phone] Raya Carty PA-C Primary Care Provider Major Kraft MD Primary Care Provider + [phone] Gregorio James MD Primary Care Provider [phone] Teodoro Lopez Primary Care Provider Unavailabl e Reason for Visit * Reason Onset Date Comments Pre-op Instructions 02/26/2022 Encounter Details Date Type Department Care Team (Late st Contact Info) Description 02/26/2022 Patient Outreach [facility] [address] [place] [address] Ginger Amador RN Pre-op Instructions Social History [...] st Contact Info) Description 11/29/2024 8:30 AM FIELD HUMAN RESOURCES MANAGER Office Visit [facility] - [facility]opedic Surgery [address] [facility] [place] [address] Toño Cabrera MD 1031 [facility] 280 [place] [address] 01/08/2025 8:00 AM CDT Appointment [facility] [address] [place] [address] 01/08/2025 9:00 AM CDT Office Visit [facility] - GI [address] [place] [address], [place] [address] Amos Pabon MD [address] [place] [address] [place] [address] documented as of this encounter Goals Goal [...] on filedocumented in this encounter Care Teams Assembling Machine Operator Relationship Specialty Start Date End Date Major Kraft MD PCP - General 07/01/21 06/08/22 Raya Carty PA-C [address] [place] [address] PCP - General 06/09/22 07/05/22 Major Kraft MD PCP - General 07/06/22 08/10/22 Gregorio James MD [address] [place] [phone] PCP - General 08/11/22 05/16/24 Teodoro Lopez PCP - General 05/17/24 Eric Oconnell MD Hospitalist 10/10/21 documented as of this encounter
--- OUTSIDE RECORDS SUMMARY | 2024-10-19 23:37 | XMS_ITS | Encounter Summary ---
Author Organization [facility] Address [address] [place] [address] Care Team Providers Care Manufacturing Scheduler Name Role Phone Major Kraft MD Primary Care Provider + [phone] Eric Oconnell MD Unavailable + [phone] Reason for Visit * Reason Comments Lower [...] Expiration Date Visits Re quested Visits Authorized [id number] 1 1 Encounter Details Date Type Department Care Team (Late st Contact Info) Description 12/17/2021 10:25 PM ADVISER SALES - 12/20/2021 5:58 PM ADVISER SALES Hospital Encounter [facility] SHORT STAY UNIT [address] [place] [address] iLma Thompson MD [address] [place] [address] David Burns MD [address] [place] [address] Karsten Waddell DO [address] [facility] [address] [place] [phone] Surgery Orthopedics Discharge Disposition: [facility] Facility Social History Tobacco Use Types Packs/Day [...] Comments Blood Pressure 135/102 12/20/2021 7:46 AM ADVISER SALES Pulse 102 12/20/2021 7:46 AM ADVISER SALES Temperature 36.7 ??C (98.1 ??F) 12/20/2021 7:46 AM CS T Respiratory Rate 20 12/20/2021 7:46 AM ADVISER SALES Oxygen Saturation 96% 12/20/2021 7:46 AM ADVISER SALES Inhaled Oxygen Concentration - - Weight 72.6 kg (160 lb) 12/17/2021 10:42 PM ADVISER SALES Height 170.2 cm (5' 7 ) 12/17/2021 10:42 PM ADVISER SALES Body Mass Index 25.06 12/17/2021 10:42 PM ADVISER SALES documented in this encounter Functional Status Functional [...] noted. Dictated by Stanley Joyce MD (residential treatment specialist). Dr. ALO Anton MD, [facility] havepersonally reviewed and interpreted this examination/study. This report was electronically signed by AOL VAZQUEZ MD, [facility] on 12/18/2021 10:[address] HIP [...] Report dictated by Shama Landry M.D. (residential treatment specialist). I, Dr. ALO VAZQUEZ MD, [facility] have personally reviewed and interpreted this examination/study. This report was electronically signed by ALO VAZQUEZ MD, [facility] on 12/18/2021 10:05 AM . Procedures: none [...] fracture of left femoral neck with nonunion [[id number]] With Criteria: No No special diet needed [...] Thorpe MD Orthopaedic Surgery 12/20/21 6:45 AM SER SALES documented in this encounter Discharge Instructions * Discharge Instructions* Anastasia Chowdhury, TEXTILE CONVERTER-ASSISTANT PROFESSOR OF COMMUNICATION - 12/19/2021 4:21 PM ADVISER SALES Images from the original note were not included. -Keep your scheduled follow up with your liver physician and primary care providers Orthopaedic Surgery follow up appointment for your left leg/hip with Dr. David Burns is scheduledon 12/31/2021 at 11:15am [facility], Level I-Orthopaedic Surgery [address] [place] [address] -You are weight bearing as tolerated to your left leg/foot when up -You may shower -No activity restrictions -For after hours orthopaedic emergency calls dial [phone] and page the orthopaedic surgery resident utilization management rn -Do not smoke cigarettes, vape, chew tobacco or use any nicotine products. Nicotine in any form will delay and can prevent healing. Patient Education Cigarette Smoking and Your Health TECHNICIAN AUTOMATIC: Risks to your health if you smoke: [...] visits. For support and more information: ?? [place] [employer] [address] [facility] , [place] Phone: Phone: Web Address: www.lung.org ?? Smokefree.gov Phone: Web Address: www.IntelliFlofree.gov ?? Copyright [employer] 2020 Information is for End User's use only and may not be sold, redistributed or otherwise used for commercial purposes. All illustrations and images included in CareNotes?? are the copyrighted property of [employer]. or [employer]inter[employer] The above information is an assistant therapy aide only. It is not intended as [...] refuse treatment. The above information is an assistant therapy aide only. It is not intended as medical advice for individual conditions or treatments. Talk to your doctor, nurse or pharmacist before following any medical regimen to see if it is safe and effective for you. ?? Copyright [employer] 2020 Information is for End User's use only and may not be sold, redistributed or otherwise used for commercial purposes. All illustrations and images included in CareNotes?? are the copyrighted property of A.D.A.M., Inc. or Mintera Patient Education Hip Pain WHAT YOU NEED [...] refuse treatment. The above information is an assistant therapy aide only. It is not intended as medical advice for individual conditions or treatments. Talk to your doctor, nurse or pharmacist before following any medical regimen to see if it is safe and effective for you. ?? Copyright [employer] 2020 Information is for End User's use only and may not be sold, redistributed or otherwise used for commercial purposes. All illustrations and images included in CareNotes?? are the copyrighted property of A.D.A.M., Inc. or [employer] SER SALES documented in this encounter Medications at Time [...] 11/17/2023 vitamin D, ergocalciferol, (DRISDOL) 1.25 MG (55135 UT) capsule Take 1 (one) capsule by mouth every 7 days for 90 days 4 capsule 2 12/26/2021 03/26/2022 documented as of this encounter Progress Notes * Roxana Lancaster RN - 12/20/2021 2:55 PM CST Report called to waterport SER SALES * Gail Miller RN - 12/20/2021 9:04 AM CST Facility Transfer Note Level of Care: SNF Facility Name: (include name of person confirming admission): [facility] Made Aware of Special Needs (if applicable): RN Call Report to:[phone] Fax D/C Orders to:[phone] Transportation (company and number): [employer] [phone] Certificate of Medical Necessity rationale: Yes Date/time of transfer: 12-20 Accepting MD and contact #: Completed and Signed [id number] (if applicable): Family/Other Notified of Transfer (name/phone): Authorization Skilled Care: Authorization for Transportation: Verified Qualifying Stay(Skilled Only): NOT APPLICABLE Comments: Name/Phone number: Gail Miller RN [phone] SER SALES * Gail Miller RN - 12/19/2021 3:19 PM CST [facility] Details Fax ? Service Provider Info: Edit [address] [facility] [address] CM phoned Ericka [phone] Left message with callback information Anticipate discharge 12-20 Gail Miller RN [phone] Bailiff SER SALES * Roxana Lancaster RN - 12/19/2021 2:53 PM CST Pt back to bed resting quietly SER SALES * Maria D Jiménez OT - 12/19/2021 1:46 PM CST [facility] Occupational Therapy Progress Note Patient: Lukas Diaz Med Record Number: [id number] Date of : 1985 Age: [age] year [...] Education: good, safety education and adaptive equipment Oil Transport Driver Goal:Patient to discharge to appropriate next level of inpatient care If patient is discharged from the facility, this note serves as a discharge note if further occupational therapy visits did not occur. Following therapy session, patient left in bed, with bed alarm on, with call light within reach andwith Nahed FUENTES aware. SER SALES * Roxana Lancaster RN - 12/19/2021 1:10 PM CST Pt up in chair . Medicated for pain SER SALES * Marleny Vasquez, PT - 12/19/2021 11:48 AM CST [facility] Medicine [facility] Rehabilitation PhysicalTherapy Progress Note Patient: Lukas Diaz [facility] Record Number: [id number] Date of : 1985 Age: [age] year old Face Mask: Therapist wore procedural mask and eye protection during entire treatment session. Discharge Recommendation: Patient will benefit from multidisciplinary inpatient therapies (return to previous half-way) Subjective: It hurts eveywhere Mental Status: Alert [...] with Stand By Assist and appropriate AD Fci Goal: Patient to discharge to appropriate next [...] light within reach and with RNKandy aware. SER SALES * Colleen Mosqueda RN - 12/19/2021 10:30 AM CST Clarita Biggs, Automatic Packer Operator and myself at bedside to discuss missing belongings. Patient states he was contacted by [facility] and they state they have his laptop and wallet. Per patient, his father will lemon picker these items. SER SALES * Marc Gamble MD - 12/19/2021 7:00 [...] - Date/Time SARS-COV-2 (COVID-19)+INFLU A+B PCR RAPID [[id number]] (Normal) Collected: 12/18/21416 Lab Status: Final result [...] acid amplification assay performance was validated by [facility]. This test has been authorized by the [...] please page with questions. DO NOT USE MerchMe Secure Chat. Marc Gamble MD 12/19/2021 7:05 AM SER SALES * Colleen Mosqueda RN - 12/18/2021 3:49 PM CST Unable to locate patient's wallet and laptop upon transfer. Belongings were locked in locker but locker not identified in charting. Some of his belongings made it to bedside. Used to lee to look in all lockers, remaining items not found. Contacted pre/post to inquire about belongings. Pre/post willcontact RN that surveyed his belongings. SER SALES * Radha Lutz, PharmD - 12/18/2021 12:50 PM CST [facility] Medication History Note The current home/prior to admission (HEAD STOCK OPERATOR) medication list has been reviewed by a pharmacist. Outpatient medications were clarified with pre-packed medication cards from [facility]. Please note all medications may NOT have [...] please do not hesitate to contact the [facility] pharmacy dept ([phone]). Thank you. Assessment Completed by: Radha Lutz PharmD 12/18/2021 12:46 PM SER SALES * Gail Miller RN - 12/18/2021 11:20 [...] liver failure Pt had recently discharged from [facility] 12-16. Pt would like to return if able. Referral to Transportation (who): Pending discharge disposition Kindergarten Paraprofessional/Support: Family and friends Kindergarten Paraprofessional person: Home/Functional Status: Functional and Cognitive Status [...] follow. For any questions or needs please [phone] contact: Court Bailiff Name/Phone number: Gail Miller RN' SER SALES * Maria D iJménez OT - 12/18/2021 11:17 AM CST [facility] Physical Medicine and Rehabilitation Occupational Therapy Initial Evaluation Note Co-eval with PT 2/2 unknown level of assist Patient: Lukas Diaz [facility] Record Number: [id number] Date of : 1985 Age: [age] year [...] feel it. PATIENT GOALS: Return to previous half-way Home living: Type of Residence: [place] Home Structure: One Story Primary Bedroom: First [...] Education: good, safety education and adaptive equipment Oil Transport Driver Goal: Patient to discharge to appropriate next level of inpatient care If patient is discharged from the facility, this note serves as a discharge summary if further occupational therapy visits did not occur. Following therapy session, patient left in bed, with bed alarm on, with call light within reach andwith RNSangeetha aware. SER SALES * Marleny Vasquez, PT - 12/18/2021 11:17 AM CST [facility] Physical Therapy Initial Evaluation Note Patient: Lukas Diaz Med Record Number: [id number] Date of : 1985 Age: [age] year [...] just hurts PATIENT GOALS: Return to previous half-way Home living: Type of Residence: [place] Home Structure: One Story Primary Bedroom: First [...] with Stand By Assist and appropriate AD Oil Transport Driver Goal(s): Patient to discharge to appropriate next level of inpatient care Equipment Issued: gait belt Plan: If patient is discharged from the facility, this note serves as a discharge summary if further physical therapy visits did not occur. Following therapy session, patient left in bed, with bed alarm on, with call light within reach andwith Sangeetha FUENTES SER SALES * Kaila Pham RN - 12/18/2021 8:30 AM CST Report given to RN. All questions answered. SER SALES * Kaila Pham RN - 12/18/2021 7:53 AM CST Pt surgery cancelled. VSS. Pt being admitted to [facility]. Report will be called to RN SER SALES documented in this encounter H&P Notes * Geremias Tomas MD - 12/18/2021 1:00 AM CST Orthopaedic Surgery H&P Note Lukas Diaz 1985 [id number] Date of service: 12/18/2021 Chief Complaint: Chief [...] PMH of alcoholic cirrhosis who presents to [facility] Emergency Department with ortho complaint of left [...] patient. Geremias Tomas MD 12/18/2021 4:19 AM SER SALES Associated attestation - Karsten Wdadell DO - 12/18/2021 7:36 AM ADVISER SALES Attending Physician Supervisory Note I personally interviewed [...] this encounter Consult Notes * Michael Ordonez, CHAINSTITCH SEAT JOINER - 12/18/2021 2:01 PM CSTAssociated Order(s): IP CONSULT TO CASTING MOLDER New Facility Placement Referral source: PT/OT Date of referral:12/18/2021 Admitted from: Home, was previously at [facility] Special Needs: Patient Goal (short term and nursing home): Short term Level of Care (SNF/Medicaid NH/Rehab/Oil Transport Driver Care/LTACH): SNF Spoke with (Phone number, if not patient. Family participation encouraged): Pt at bedside Family Contacted: No List of facilities provided (within patient geographic preference): Yes Referrals initiated: Continued Care and Services - Admitted Since 12/17/2021 Destination Service Provider Request Status Selected Services Address Phone Fax Patient Preferred [facility] Pending - Request Sent N/A [address] [facility] [address] [phone] -- [facility] Pending - Request Sent N/A [address] [facility] [address] [phone] -- [facility] Pending - Request Sent N/A [address] [facility] [address] -- monitoring facility responses Comments: Substance [...] declined referrals/placement Intervention/Follow-up: No MARY Pisano 12/18/2021 SER SALES documented in this encounter ED Notes * Amaris Cid RN - 12/18/2021 6:18 AM CST Report given to Kaila. SER SALES * Lima Thompson MD - 12/17/2021 10:39 PM CST ED Attending Note Interval History: Lukas Diaz is a 36 year old male with PMHx of polysubstance abuse, alcoholic cirrhosis, portal hypertension, and esophageal varices who [facility]. Patient initially seen [...] Ethanol Interp <10: None Detected. Depression of ASSISTANT PROFESSOR OF COMMUNICATION: >100 mg/dl Potentially Critical: >250 mg/dl Potentially [...] mg (4 mg Intravenous $ Given 12/17/21 2887) ondansetron (Zofran) injection 4 mg (4 mg Intravenous $ Given 12/17/21 2531) Clinical Impression: 1. Closed fracture of left [...] complete. Signed: Dr. Thompson. 12/18/2021. 5:52 AM. SER SALES * Carolina Menchaca, RN - 12/17/2021 10:28 PM CST [facility]ems as transfer from OSH for left hip fracture. Per EMS leg is shortened, externally rotated. Ptbelieves he fell several days ago but doesn't remember falling. EMS reports hx drug and alcohol abuse, cirrhosis, liver failure. AOx4 on arrival, report 9/10 pain SER SALES documented in this encounter Plan of Treatment Upcoming Encounters Date Type Department Care Team (Late st Contact Info) Description 11/29/2024 8:30 AM ADVISER SALES Office Visit [facility] - Orthopedic Surgery [address] [place] [address] Toño Cabrera MD [address] [facility] [address] [place] [address] 01/08/2025 8:[address] [facility] [address] [place] [id number] 01/08/2025 9:00 AM CDT Office Visit [facility] - [address] [facility] [place] [phone] Amos Pabon MD [address] [place] [address] [address] [place] [address] documented as of this encounter Goals Goal [...] W/O DIFFERENTIAL AM Draw 12/19/2021 1:53 AM ADVISER SALES VITAMIN D 25-HYDROXY AM Draw 12/19/2021 1:35 AM ADVISER SALES COMPREHENSIVE METABOLIC PANEL AM Draw 12/19/2021 1:[address] HIP LEFT WO CONTRAST STAT 12/18/2021 6:44 AM ADVISER SALES Closed fracture of left hip, initial encounter (HCC) URINE DRUG SCREEN IMMUNOASSAY STAT 12/18/2021 4:57 AM ADVISER SALES BLOOD TYPE VERIFICATION STAT 12/18/2021 4:44 AM ADVISER SALES SARS-COV-2 (COVID-19)+INFLU A+B PCR RAPID STAT 12/18/2021 4:17 AM ADVISER SALES TYPE + SCREEN PANEL STAT 12/18/2021 4 :17 AM ADVISER SALES XR FEMUR LEFT 2VW STAT 12/18/2021 1:3 6 AM ADVISER SALES Closed fracture of left hip, initial encounter (HCC) PT-INR [facility] STAT 12/17/2021 11:11 PM ADVISER SALES ALCOHOL ETHYL BLOOD STAT 12/17/2021 1 1:11 PM ADVISER SALES XR PELVIS W LEFT HIP 2VW STAT 12/17/2021 11:05 PM ADVISER SALES Closed fracture of left hip, initial encounter ([facility]) CBC W AUTO DIFFERENTIAL STAT 12/17/2021 10:58 PM ADVISER SALES COMPREHENSIVE METABOLIC PANEL STAT 12/17/2021 10:57 PM ADVISER SALES documented in this encounter Results * (ABNORMAL) CBC W/O DIFFERENTIAL (12/19/2021 1:53 AM ADVISER SALES) [facility] WBC 7.5 3.5 - 10.5 10? 3 [...] Lab Venipuncture / Unknown 12/19/2021 1:53 AM ADVISER SALES 12/19/2021 1:53 AM ADVISER SALES Anastasia A Trenton TEXTILE CONVERTER-ASSISTANT PROFESSOR OF COMMUNICATION LAB - HEMATOLO GY ORDERABLES Performing Organization Address [facility] de Phone Number [facility] [address] [phone], [facility] [phone] * (ABNORMAL) VITAMIN D 25-HYDROXY (12/19/2021 1:35 AM ADVISER SALES) [facility] Vitamin D, 25 Hydroxy 7.0(L) [...] Lab Venipuncture / Unknown 12/19/2021 1:35 AM ADVISER SALES 12/19/2021 1:46 AM ADVISER SALES Anastasia Chowdhury TEXTILE CONVERTER-ASSISTANT PROFESSOR OF COMMUNICATION LAB - CHEMISTR Y ORDERABLES Performing Organization Address [facility]/State/ZIP Co de Phone Number [facility] [address] [place] [address], [facility] [phone] * (ABNORMAL) COMPREHENSIVE METABOLIC PANEL (12/19/2021 1:35 AM [facility]) BUN 9 7 - 26 mg/dL 12/19/2021 [...] Lab Venipuncture / Unknown 12/19/2021 1:35 AM ADVISER SALES 12/19/2021 1:46 AM ADVISER SALES Anastasia Chowdhury TEXTILE CONVERTER-ASSISTANT PROFESSOR OF COMMUNICATION LAB - CHEMISTR Y ORDERABLES [facility] [address] [place] [address], [facility] [phone] * CT HIP LEFT WO CONTRAST (12/18/2021 6:44 AM ADVISER SALES) Anatomical Region Laterality Modality Lower Extremity Computed Tomogra phy 12/18/2021 6:48 AM ADVISER SALES Impressions 12/18/2021 8:00 AM ADVISER SALES Impression: Displaced left femoral neck fracture, age-indeterminate. Cannot exclude a small posterior-superior acetabular wall fracture. See comments above. Report drafted by Shaun Marie (resident) I, Dr. VALENTE MCDUFFIE MD have personally reviewed and interpreted this examination/study. This report was electronically signed by VALENTE MCDUFFIE MD ??on 12/18/2021 8:00 AM . Narrative 12/18/2021 8:00 AM ADVISER SALES Procedure Information DATE: 12/18/2021 6:45 AM EXAMINATION: [...] URINE DRUG SCREEN IMMUNOASSAY (12/18/2021 4:57 AM ADVISER SALES) [facility] Amphetamines Screen Urine Positive(A) Negative : < 1000 ng/mL 12/18/2021 5:21 AM ADVISER SALES [facility] Comment: Positive urine amphetamine screening [...] Unknown Collection / Unknown 12/18/2021 4:57 AM [facility] 12/18/2021 4:59 AM [facility] - 12/18/2021 5:21 AM [facility] The Urine Toxicology Screening Panel does not screen for Propoxyphene, Meprobamate, Carisoprodol, Trazodone, mblt-qrc-dnowhem medications and/or volatiles (Acetone, Isopropanol, Methanol or Ethylene Glycol). Ethanol, Salicylate, Acetaminophen, Tricyclic Antidepressants and several therapeutic drugs may be individually assayed in serum or plasma specimen. Toxicology testing by the [facility] is an aid to medical diagnosis and treatment of patients. No documented chain of custody was maintained. Results are intended to be used for clinical purposes only. ? Lima Thompson MD LAB - URINE CHEMISTR Y ORDERABLES Performing Organization Address [facility] de Phone Number [address] [address], [place] [phone] * BLOOD TYPE VERIFICATION (12/18/2021 4:44 AM ADVISER SALES) [facility] ABO Rh B POS 12/18/2021 5:1 9 AM [facility] BLOOD [facility] LAB Blood Bank BLOOD SPECIMEN / Unknown Lab Venipuncture / Unknown 12/18/2021 4:44 AM ADVISER SALES 12/18/2021 4:51 AM ADVISER SALES Lima Thompson MD LAB - BLOOD BANK ORD ERABLES Performing Organization Address [facility] de Phone Number [facility] [address] [place] [address], [place] [phone] * SARS-COV-2 (COVID-19)+INFLU A+B PCR RAPID (12/18/2021 4:17 AM ADVISER SALES) [facility] COVID-19 PCR Not detected Not detected 12/18/19 6:44 AM [facility] Influenza A Rapid MISAEL Not Detected Not Detected 12/18/2021 6:44 AM [facility] Influenza B MISAEL Rapid Not Detected Not Detected 12/18/2021 6:[address] [facility] Microbiology SPECIMEN FROM NASOPHARYNGEAL STRUCTURE / Unknown Collection / Unknown 12/18/2021 4:17 AM ADVISER SALES 12/18/2021 6:15 AM ADVISER SALES N[address]ative [facility] - 12/18/2021 6:44 AM ADVISER SALES Influenza assay performed by [employer]. [...] acid amplification assay performance was validated by [facility]. This test has been authorized by the [...] Thompson MD LAB - MICROBIOLOGY O RDERABLES [facility] [address] [place] [address], [facility] [phone] * TYPE + SCREEN PANEL (12/18/2021 4:17 AM ADVISER SALES) Antibody Screen NEG 5:14 AM [facility] BLOOD BANK LAB ABO Rh B POS 12/18/2021 5:14 AM [facility] BLOOD [facility] LAB Blood Bank BLOOD SPECIMEN / Unknown Venipuncture / Unknown 12/18/2021 4:17 AM ADVISER SALES 12/18/2021 4:29 AM ADVISER SALES Lima Thompson MD LAB - BLOOD BANK ORD ERABLES [facility] [address] [place] [address], [facility] [phone] * XR FEMUR LEFT 2VW (12/18/2021 1:36 AM ADVISER SALES) Anatomical Region Laterality Modality Lower Extremity Radiographic Юлия ging 12/18/2021 7:13 AM ADVISER SALES Impressions 12/18/2021 10:34 AM ADVISER SALES FINDINGS/IMPRESSION: Comminuted moderately displaced subcapital fracture of the left femoral neck. There is 1.3 cm interposition of the femoral head and the femoral shaft at the fracture line. The femoral head appears well positioned within its respective acetabula. Soft tissue swelling is noted. Dictated by Stanley Joyce MD (residential treatment specialist). Dr. ALO Anton MD, [facility] have personally reviewed and interpreted this examination/study. This report was electronically signed by ALO VAZQUEZ MD, [facility] ??on 12/18/2021 10:34 AM . Narrative 12/18/2021 10:34 AM ADVISER SALES EXAMINATION: XR FEMUR LEFT 2VW HISTORY: S72.002A: [...] noted. Dictated by Stanley Joyce MD (residential treatment specialist). IDr. ALO MD, FRCR have personally reviewedand interpreted this examination/study. This report was electronically signed by ALO VAZQUEZ MD, FRCR on 12/18/2021 10:34 AM . Lima Thompson MD DIAGNOSTIC IMAGING O RDERABLES * (ABNORMAL) PT-INR [facility] (12/17/2021 11:11 PM ADVISER SALES) PT 15.4(H) 12.1 - 14.8 Seconds 12/17/2021 11:[address] [facility] INR 1.2 See Comment 12/17/2021 11:32 PM [facility] Comment:The suggested therap eutic range for standard coumadin (warfarin) therapy is an INR of 2.0-3.0. For high-risk patients (Mechanical Mitral Valve Prosthesis, etc.), the suggested prophylactic therapeutic range is an INR of 2.5-3.5. Blood BLOOD SPECIMEN / Unknown Venipuncture / Unknown 12/17/2021 11:11 PM ADVISER SALES 12/17/2021 11:14 PM ADVISER SALES Lima Thompson MD LAB - COAGULATION OR DERABLES [facility] [address] [place] [address], [facility] [phone] * ALCOHOL ETHYL BLOOD (12/17/2021 11:11 PM ADVISER SALES) Ethanol (mg/dL) <10 <10 mg/dL 11:[address] [facility] Ethanol Calculated (g/dL) <0.010 <0.010 g/dL 12/17/2021 11:34 PM [facility] Blood BLOOD SPECIMEN / Unknown Venipuncture / Unknown 12/17/2021 11:11 PM ADVISER SALES 12/17/2021 11:14 PM ADVISER SALES Narrative [facility] - 12/17/2021 11:34 PM ADVISER SALES Ethanol Interp <10: None Detected. Depression of ASSISTANT PROFESSOR OF COMMUNICATION: >100 mg/dl Potentially Critical: >250 mg/dl Potentially [...] Thompson MD LAB - CHEMISTRY KURT ZARAGOZA [facility] Organization Address City/State/ZIP Co de Phone Number [facility] [place] [address], [facility] [phone] * XR PELVIS W LEFT HIP 2VW (12/17/2021 11:05 PM ADVISER SALES) Anatomical Region Laterality Modality Pelvis Radiographic Юлия ging 12/17/2021 11:0 6 PM ADVISER SALES Impressions 12/18/2021 10:05 AM ADVISER SALES IMPRESSION: Superolaterally displaced fracture of the left femoral neck. Report dictated by Shama Landry M.D. (residential treatment specialist). I, Dr. ALO VAZQUEZ MD, [facility] have personally reviewed and interpreted this examination/study. This report was electronically signed by ALO VAZQUEZ MD, CR ??on 12/18/2021 10:05 AM . Narrative 12/18/2021 10:05 AM ADVISER SALES EXAMINATION: XR PELVIS W LEFT HIP 2VW [...] Report dictated by Shama Landry M.D. (residential treatment specialist). I, Dr. ALO VAZQUEZ MD, FRCR have personally reviewedand interpreted this examination/study. This report was electronically signed by ALO VAZQUEZ MD, FRCR on 12/18/2021 10:05 AM . Lima Thompson MD DIAGNOSTIC IMAGING O RDERABLES * (ABNORMAL) CBC W AUTO DIFFERENTIAL (12/17/2021 10:58 PM ADVISER SALES) WBC 10.1 3.5 - 10.5 10? 3 [...] Unknown Venipuncture / Unknown 12/17/2021 10:58 PM ADVISER SALES 12/17/2021 11:04 PM ADVISER SALES Lima Thompson MD LAB - HEMATOLOGY ORD ERABLES [facility] [address] [place] [address], [facility] [phone] * (ABNORMAL) COMPREHENSIVE METABOLIC PANEL (12/17/2021 10:57 PM [facility]) BUN 10 7 - 26 mg/dL 12/17/2021 [...] 5 - 55 U/L 12/17/2021 11:36 PM ADVISER SALES [facility] AST 127(H) 5 - [...] Unknown Venipuncture / Unknown 12/17/2021 10:57 PM [facility] 12/17/2021 11:04 PM [facility] Lima Thompson MD LAB - CHEMISTRY KURT ZARAGOZA [facility] Organization Address City/State/ZIP Co de Phone Number [facility] [address] [place] [address], [facility] [phone] documented in this encounter Visit Diagnoses Diagnosis [...] Until Discontinued $ Given 12/20/2021 12:56 PM ADVISER SALES 10 mg $ Given 12/20/2021 8:31 AM ADVISER SALES 10 mg $ Given 12/19/2021 8:47 PM ADVISER SALES 10 mg busPIRone (Buspar) tablet 5 mg 5 mg, Oral, 2 TIMES DAILY, First dose on Wed12/18/21 at 0900, Until Discontinued $ Given 12/20/2021 8:32 AM ADVISER SALES 5 mg $ Given 12/19/2021 8:47 PM ADVISER SALES 5 mg $ Given 12/19/2021 8:32 AM ADVISER SALES 5 mg calcium tablet 500 mg 500 mg, Oral, 2 TIMES DAILY WITH MEALS, First dose on Wed12/19/21 at 0800, Until Discontinued $ Given 12/20/2021 8:32 AM ADVISER SALES 500 mg $ Given 12/19/2021 5:03 PM ADVISER SALES 500 mg $ Given 12/19/2021 8:33 AM ADVISER SALES 500 mg folic acid (Folvite) tablet 1 mg 1 mg, Oral, DAILY, First dose on Wed12/18/21 at 0900, Until Discontinued $ Given 12/20/2021 8:31 AM ADVISER SALES 1 mg $ Given 12/19/2021 8:32 AM ADVISER SALES 1 mg $ Given 12/18/2021 9:27 AM ADVISER SALES 1 mg furosemide (Lasix) tablet 60 mg 60 mg, Oral, DAILY, First dose (after last modification) on Wed12/19/21 at 0900, Until Discontinued $ Given 12/20/2021 8:31 AM ADVISER SALES 60 mg $ Given 12/19/2021 8:33 AM ADVISER SALES 60 mg gabapentin (Neurontin) capsule 100 mg 100 mg, Oral, 3 TIMES DAILY, First dose on Wed12/18/21 at 0900, Until Discontinued $ Given 12/18/2021 1:19 PM ADVISER SALES 100 mg $ Given 12/18/2021 9:27 AM ADVISER SALES 100 mg lactated ringers infusion at 125 mL/hr, Intravenous, CONTINUOUS, Starting on Wed12/18/21 at 0445, Until Wed12/18/21 at 1113 $ New Bag/Syringe 12/18/2021 4:30 AM ADVISER SALES 125 mL/hr lactulose (Chronulac) solution 3.333 g 3.333 g (rounded from 3.3333 g = 5 mL), Oral, 3 TIMES DAILY, First dose on Wed12/18/21 at 0900, Until Discontinued $ Given 12/20/2021 8:32 AM ADVISER SALES 3.333 g mirtazapine (Remeron) tablet 30 mg 30 mg, Oral, AT BEDTIME, First dose on Wed12/18/21 at 2100, Until Discontinued $ Given 12/19/2021 8:47 PM ADVISER SALES 30 mg $ Given 12/18/2021 8:03 PM ADVISER SALES 30 mg morphine injection 4 mg 4 [...] the MAR. $ Given 12/17/2021 11:13 PM ADVISER SALES 4 mg multivitamin daily tablet 1 tablet 1 tablet, Oral, DAILY, First dose on Wed12/19/21 at 0900, Until Discontinued, . WASTE DISPOSAL INSTRUCTIONS: Black Bin Disposal required. $ Given 12/20/2021 8:32 AM ADVISER SALES 1 tablet $ Given 12/19/2021 8:33 AM ADVISER SALES 1 tablet ondansetron (Zofran) injection 4 mg 4 mg, Intravenous, NOW, 1 dose, On Wed12/17/21 at 2245, Administer over 2 to 5 minutes. $ Given 12/17/2021 11:13 PM ADVISER SALES 4 mg oxyCODONE (immediate release) (Roxicodone) tablet [...] the MAR. $ Given 12/19/2021 12:58 PM ADVISER SALES 5 mg $ Given 12/19/2021 8:33 AM ADVISER SALES 5 mg $ Given 12/19/2021 4:26 AM ADVISER SALES 5 mg pantoprazole EC (Protonix) tablet 40 mg 40 mg, Oral, 2 TIMES DAILY, First dose on [facility] 12/18/21 at 0900, Until Discontinued, Do not crush, chew, or cut in half. $ Given 12/20/2021 8:32 AM ADVISER SALES 40 mg $ Given 12/19/2021 8:47 PM ADVISER SALES 40 mg $ Given 12/19/2021 8:33 AM ADVISER SALES 40 mg pregabalin (Lyrica) capsule 75 mg 75 mg, Oral, 2 TIMES DAILY, First dose on [facility] 12/18/21 at 2100, Until Discontinued $ Given 12/20/2021 8:32 AM ADVISER SALES 75 m g $ Given 12/19/2021 8:50 PM ADVISER SALES 75 mg $ Given 12/19/2021 8:33 AM ADVISER SALES 75 mg propranolol (Inderal) tablet 10 mg 10 mg, Oral, 2 TIMES DAILY, First dose on [facility] 12/18/21 at 0900, Until Discontinued, Avoid abrupt withdrawal $ Given 12/20/2021 8:33 AM ADVISER SALES 10 mg $ Given 12/19/2021 8:47 PM ADVISER SALES 10 mg $ Given 12/19/2021 8:33 AM ADVISER SALES 10 mg rifAXIMin (Xifaxan) tablet 550 mg 550 mg, Oral, 2 TIMES DAILY, First dose on [facility] 12/18/21 at 1315, Until Discontinued $ Given 12/20/2021 8:31 AM ADVISER SALES 550 mg $ Given 12/19/2021 8:47 PM ADVISER SALES 550 mg $ Given 12/19/2021 8:33 AM ADVISER SALES 550 mg spironolactone (Aldactone) tablet 100 mg 100 mg, Oral, ONCE, 1 dose, On [facility] 12/18/21 at 1300 $ Given 12/18/2021 1:19 PM ADVISER SALES 100 mg spironolactone (Aldactone) tablet 150 mg 150 mg, Oral, DAILY, First dose (after last modification) on Wed12/19/21 at 0900, Until Discontinued $ Given 12/20/2021 8:31 AM ADVISER SALES 150 mg $ Given 12/19/2021 8:32 AM ADVISER SALES 150 mg spironolactone (Aldactone) tablet 50 mg 50 mg, Oral, DAILY, First dose on [facility] 12/18/21 at 0900, Until Discontinued $ Given 12/18/2021 9:27 AM ADVISER SALES 50 mg temazepam (Restoril) capsule 7.5 mg 7.5 mg, Oral, AT BEDTIME, First dose on [facility] 12/18/21 at 2100, Until Discontinued $ Given 12/19/2021 8:47 PM ADVISER SALES 7.5 mg $ Given 12/18/2021 8:02 PM ADVISER SALES 7.5 mg traMADol (Ultram) tablet 50 mg [...] the MAR. $ Given 12/20/2021 12:25 PM ADVISER SALES 50 m g $ Given 12/20/2021 2:28 AM ADVISER SALES 50 mg $ Given 12/19/2021 5:03 PM ADVISER SALES 50 mg vitamin D (ergocalciferol) (Drisdol) 1.25 MG (97799 UT) capsule 50,000 Units 50,000 Units, Oral, EVERY 7 DAYS, First dose on Wed12/19/21 at 0900, Until Discontinued, Do not crush or chew. $ Given 12/19/2021 8:32 AM ADVISER SALES 50,000 Units documented in this encounter Active and Recently Administered Medications Times are shown in ADVISER SALES. Scheduled Medication Order 12/18/2021 12/19/2021 12/20/2021 baclofen [...] RN) vitamin D (ergocalciferol) (Drisdol) 1.25 MG (04084 UT) capsule 50,000 Units 50,000 Units, Oral, [...] 0228 ($ Given - Provider: Franchesca Dupont RN)9035 ($ Given - Provider: Roxana Lancaster RN) documented in this encounter Care Teams Manufacturing Scheduler Relationship Specialty Start Date End Date Major Kraft MD PCP - General 07/01/21 06/08/22 Eric Oconnell MD Hospitalist 10/10/21 documented as of this encounter
--- OUTSIDE RECORDS SUMMARY | 2024-10-19 23:37 | XMS_ITS | Encounter Summary ---
Author Organization [facility] Address [address] [facility] [facility] [place] [address] Care Team Providers Care Software Licensing Specialist Name Role Phone Major Kraft MD Primary Care Provider + [phone] Eric Oconnell MD Unavailable + [phone] Reason for Visit * Reason Onset Date Comments Pre-op Instructions 02/16/2022 Encounter Details Date Type Department Care Team (Late st Contact Info) Description 02/16/2022 Patient Outreach [facility] [address] [place] [phone] Sheridan Dorman RN Pre-op Instructions Social History [...] provides that main number at facility is [phone] Faxed info to Patient: Lukas Diaz 83 [...] are on it. -You MUST have a haul driver to drive you home. (You can NOT take a bus, cab, LYFT or UBER) -You will be at our facility from start to finish (registration, pre op, procedure, recovery) for approximately 4 hours total. -Your procedure will be in our [facility]. The new address will be at [address] [place] [address]. [address] to the new parking garage. -Come in on the ORANGE elevators of the parking garage. Endoscopy is on the LEVEL 1 of the hospital. [facility] -Please bring a current list of your medications -Main endoscopy department number is [phone] Prior to arrival, we will need to be aware of any recent COVID exposures or symptoms. Masks are required while in the hospital documented in this encounter Plan of Treatment Upcoming Encounters Date Type Department Care Team (Late st Contact Info) Description 11/29/2024 8:30 AM FLARE STITCHER Office Visit [facility] - Orthopedic Surgery [address] [place] [phone] Toño Cabrera MD [address] [facility] [address] [place] [address] 01/08/2025 8:00 AM CDT Appointment [facility] [address] [place] [address] 01/08/2025 9:00 AM CDT Office Visit [facility] - GI [address] [facility], [place] [address] Amos Pabon MD [address] [place] [address] OF [place] [address] documented as of this encounter Goals Goal [...] on filedocumented in this encounter Care Teams Software Licensing Specialist Relationship Specialty Start Date End Date Major Kraft MD PCP - General 07/01/21 06/08/22 Eric Oconnell MD Hospitalist 10/10/21 documented as of this encounter
--- OUTSIDE RECORDS SUMMARY | 2024-10-19 23:37 | XMS_ITS | Encounter Summary ---
Author Organization [facility] Address [address] [facility] [place] [address] Care Team Providers Care Work Over Rig Operator Name Role Phone Major Kraft MD Primary Care Provider [phone] Eric Oconnell MD Unavailable + [phone] Reason for Visit * Reason Comments Pain Hip left Encounter Details Date Type Department Care Team (Latest Contact Info) Description 01/21/2022 9:30 AM CDT Office Visit [facility] [address] [place] [address] Toño Cabrera MD [address] [address] Closed fracture of left hip, initial encounter [...] a poor historian. [facility] and wasfound to have a neglected [...] improving but he does see hepatology at [facility]. He states he can not do his [...] ??? vitamin D, ergocalciferol, (DRISDOL) 1.25 MG (07475 UT) capsule Take 1 (one) capsule by [...] st Contact Info) Description 11/29/2024 8:30 AM SPORTS TEAM MANAGER Office Visit [facility] - Orthopedic Surgery [address] [place] [address] Toño Cabrera MD [address] [facility] [address] [place] [address] 01/08/2025 8:[address] [facility] [address] [place] [address] 01/08/2025 9:00 AM CDT Office Visit [facility] - GI [address] [facility], [place] [phone] Amos Pabon MD [address] [place] [address] [place] [address] documented as of this encounter Goals Goal [...] thigh documented in this encounter Care Teams Work Over Rig Operator Relationship Specialty Start Date End Date Major Kraft MD PCP - General 07/01/21 06/08/22 Eric Oconnell MD Hospitalist 10/10/21 documented as of this encounter
--- OUTSIDE RECORDS SUMMARY | 2024-10-19 23:37 | XMS_ITS | Encounter Summary ---
Author Organization [facility] Address [address] [facility] [place] [address] Care Team Providers Care Wildland Fire Fighter Name Role Phone Major Kraft MD Primary Care Provider [phone] Eric Oconnell MD Unavailable + [phone] Encounter Details Date Type Department Care Team (Late st Contact Info) Description 01/05/2022 Orders Only [facility] - Orthopedics [address] [facility], [place] [address] David Burns MD [address] [place] [address] Orthopedic aftercare Social History Tobacco [...] st Contact Info) Description 11/29/2024 8:30 AM ENTREPRENEUR Office Visit [facility] - Orthopedic Surgery [address] [place] [address] Toño Cabrera MD 10[address] [facility] [address] [place] [address] 01/08/2025 8:00 AM CDT Appointment [facility] [address] [place] [phone] 01/08/2025 9:00 AM CDT Office Visit [facility] - GI [address] [facility], [place] [address] Amos Pabon MD [address] [place] [address] [place] [address] documented as of this encounter Goals Goal [...] aftercare documented in this encounter Care Teams Wildland Fire Fighter Relationship Specialty Start Date End Date Major Kraft MD PCP - General 07/01/21 06/08/22 Eric Oconnell MD Hospitalist 10/10/21 documented as of this encounter
--- OUTSIDE RECORDS SUMMARY | 2024-10-19 23:37 | XMS_ITS | Encounter Summary ---
Author Organization [facility] [employer] Address [address] [facility] [place] [address] Care Team Providers Care Outside Installation Machinist Name Role Phone Major Kraft MD Primary Care Provider [phone] Eric Oconnell MD Unavailable + [phone] Reason for Visit * Auth/Cert Specialty Diagnoses / Procedures Referred By Rod t Referred To Contact Diagnoses Other cirrhosis of liver (HCC) Other cirrhosis of liver [K74.69] Procedures CA ED EGD FLEX TRANSORAL DX CA EGD FLEX TRANSORAL W BX SNGL OR MULT ESOPHAGOGASTRODUODENOSCOPY (EGD) DIAGNOSTIC Referral ID Status Reason Start Date Expiration Date Visits Re quested Visits Authorized [id number] 1 1 Encounter Details Date Type Department Care Team (Late st Contact Info) Description 03/05/2022 9:34 AM CDT - 03/05/2022 10:04 AM T Surgery [facility] [address] [place] [phone] Amos Pabon MD [facility] 2L [place] [address] EGD Surgery Details Date/Time Status Location OR Service Patient Class Case Class Case Type Trauma Case? 03/05/2022 9:34 AM Posted [facility] Endoscopy ENDO 2 Gastroenterology Surgery Day Care Panel 1 Procedure LRB Anes Op Region Wound Class Comments EGD N/A MAC Abdomen NA esophagitis, antral ulcers, Holt's A. gastric bx R/O H pylori Surgeon Surgeon Role Service Panel Amos Pabon MD Primary Gastroenterology 1 Special Needs at senior care documented in this encounter Social History Tobacco [...] ask them during your visits. ?? Copyright [employer] 2020 Information is for End User's use only and may not be sold, redistributed or otherwise used for commercial purposes. All illustrations and images included in CareNotes?? are the copyrighted property of [employer] or [employer] The above information is an environmental aide only. It is not intended as [...] 02/19/2023 vitamin D, ergocalciferol, (DRISDOL) 1.25 MG (75795 UT) capsule Take 1 (one) capsule by [...] ??? vitamin D, ergocalciferol, (DRISDOL) 1.25 MG (95128 UT) capsule Take 1 (one) capsule by [...] acute cholecystitis. Dictated by Lawrence Meyers D.O. (Coper Hand) I, Dr. CLIFFORD COTA M.D. have pers [...] st Contact Info) Description 11/29/2024 8:30 AM GANG WORKER Office Visit [facility] - Orthopedic Surgery [address] [facility] [place] [address] Toño Cabrera MD [address] [facility] 280 [place] [address] 01/08/2025 8:00 AM CDT Appointment [facility] [address] [place] [address] 01/08/2025 9:00 AM CDT Office Visit [facility] - GI [address] [facility], [place] [phone] Amos Pabon MD [address] [place] [address] [place] [address] documented as of this encounter Goals Goal [...] AM CDT Other cirrhosis of liver (HCC) CA ED EGD FLEX TRANSORAL DX 03/05/2022 9:43 AM CDT Other cirrhosis of liver (HCC) Special Needs at senior care EGD Routine 03/05/2022 9:23 AM CDT documented in this encounter Results * PATHOLOGY TISSUE (03/05/2022 9:47 AM CDT) Case Report Surgical Pathology Report ? Case: [id number] ? Authorizing Provider: ??Amos Pabon MD ?Collected: [...] the final diagnosis. 03/06/2022 12:19 PM T [facility] Clinical History The patient is a 36-year-old man here for 2nd degree variceal eradication. Operative procedure/findings: EGD - few non-bleeding superficial gastric ulcers in antrum, biopsied. 03/06/2022 12:19 PM T [facility] Gross Description The requisition and specimen(s) are identified with the patient's name Lukas Diaz. Received in formalin, specimen A , are 4 pink-briscoe tissues, 0.1-0.7 cm in greatest dimension and 1.3 x 0.2 x 0.2 cm in aggregate, submitted in toto in cassette A1. DF 03/06/2022 12:19 PM [facility] Disclaimer The performance characteristics of all immunohistochemical and indirect immunofluorescence stains (if any) cited in this report were determined by the Histopathology Laboratory of [facility]. Some of these tests were developed [...] attending (teaching) pathologist. 03/06/2022 12:19 PM T [facility] Embedded Images 03/06/2022 12:19 PM [facility] Biopsy, NOS GASTRIC CONTENTS SPECIMEN / Unknown 03/05/2022 9:47 AM CDT 03/05/2022 11:35 AM CDT Comment:Pre-op diagnosis: Other cirrhosis of liver [K74.69] Amos Pabon MD LAB - PATHOLOGY/CYTO LOGY ORDERABLES [facility] [address] [phone] * EGD (03/05/2022 9:23 AM CDT) Report [...] Procedure Code(s): ? --- Professional --- ? 45947, Esophagogastroduode noscopy, flexible, transoral; with biopsy, ? single or multiple Diagnosis Code(s): ?--- Professional --- ?K21.0, Gastro-esophageal reflux disease with ?esophagitis ?K22.8, Other specified diseases of esophagus ?K25.9, Gastric ulcer, unspecified as acute or ?chronic, without hemorrhage or perforation ?I85.00, Esophageal varices without bleeding CPT copyright 2019 [employer]. All rights reserved. The codes documented in this report are preliminary and upon call centre supervisor review may be revised to meet current compliance requirements. Amos Pabon, 03/05/2022 9:59:19 AM Note Initiated On: 03/05/2022 9:23 AM Number of Addenda: 0 ? [facility] ? [address] [place], [place] [address] [place] [address] PROVATION 03/05/2022 9:23 AM CDT Amos Pabon MD GI PROCEDURE ORDERAB LES [facility] [employer]OVATION documented in this encounter Visit Diagnoses [...] (GI) documented in this encounter Care Teams Outside Installation Machinist Relationship Specialty Start Date End Date Major Kraft MD PCP - General 07/01/21 06/08/22 Eric Oconnell MD Hospitalist 10/10/21 documented as of this encounter
--- OUTSIDE RECORDS SUMMARY | 2024-10-19 23:37 | XMS_ITS | Encounter Summary ---
Author Organization [facility] Address [address] [facility] [place] [address] Care Team Providers Care Web Software Engineer Name Role Phone Major Kraft MD Primary Care Provider + [phone] Eric Oconnell MD Unavailable + [phone] Reason for Visit * Reason Onset Date Comments Surgery Scheduling 01/07/2022 Encounter Details Date Type Department Care Team (Late st Contact Info) Description 01/07/2022 Telephone [facility] - [address] [place] [phone] Anai Hahn RN Surgery Scheduling Social History [...] he saw ortho today ( records in [facility]). Patient has a lefthip fracture and will need a replacement. Patient will need clearance from hepatology to proceed with surgery. Per patient okay to put letter of clearance into [facility] as surgeons are [facility]. documented in this encounter Plan of Treatment Upcoming Encounters Date Type Department Care Team (Late st Contact Info) Description 11/29/2024 8:30 AM ENVELOPE FOLDING MACHINE OPERATOR Office Visit [facility] - Orthopedic Surgery [address] [place] [address] Toño Cabrera MD [address] [facility] 280 [place] [address] 01/08/2025 8:00 AM CDT Appointment [facility] [address] [place] [address] 01/08/2025 9:00 AM CDT Office Visit [facility] - GI [address] [facility], [place] [address] Amos Pabon MD [address] [facility] [place] 2L [place] [address] documented as of this encounter Goals Goal [...] filedocumented in this encounter Care Teams Web Software Engineer Relationship Specialty Start Date End Date Major Kraft MD PCP - General 07/01/21 06/08/22 Eric Oconnell MD Hospitalist 10/10/21 documented as of this encounter
--- OUTSIDE RECORDS SUMMARY | 2024-10-19 23:37 | XMS_ITS | Encounter Summary ---
Author Organization [facility] Health Address [address] [facility] [place] [address] Care Team Providers Care Financial Sales Assistant Name Role Phone Major Kraft MD Primary Care Provider + [phone] Eric Oconnell MD Unavailable + [phone] Reason for Visit * Reason Onset Date Comments LABS ONLY 01/02/2022 Encounter Details Date Type Department Care Team (Late st Contact Info) Description 01/02/2022 Telephone [facility] - [address] [facility], [place] [phone] Fouzia Payne, RN LABS ONLY Social History [...] Patient calls needing lab orders sent to [facility] fax number- [phone] Labs ordered and faxed. HER WOOD WELDER documented in this encounter Plan of Treatment Upcoming Encounters Date Type Department Care Team (Late st Contact Info) Description 11/29/2024 8:30 AM PATCHER WOOD WELDER Office Visit [facility] - Orthopedic Surgery [address] [place] [address] Toño Cabrera MD 10[address] [facility] [address] [place] [address] 01/08/2025 8:00 AM CDT Appointment [facility] [address] [place] [address] 01/08/2025 9:00 AM CDT Office Visit [facility] - GI [address] [facility], [place] [phone] Amos Pabon MD [address] [place] [address] [place] [address] Scheduled Orders Name Type Priority Associated Diagnoses [...] Primary documented in this encounter Care Teams Financial Sales Assistant Relationship Specialty Start Date End Date Major Kraft MD PCP - General 07/01/21 06/08/22 Eric Oconnell MD Hospitalist 10/10/21 documented as of this encounter
--- OUTSIDE RECORDS SUMMARY | 2024-10-19 23:37 | XMS_ITS | Encounter Summary ---
Author Organization [facility] Address [address] [facility] [place] [address] Care Team Providers Care Alum Operator Name Role Phone Major Kraft MD Primary Care Provider [phone] Eric Oconnell MD Unavailable + [phone] Reason for Visit * Reason Comments Follow-up Encounter Details Date Type Department Care Team (Late st Contact Info) Description 02/24/2022 Telephone [facility] - Nephrology [address] [place] [address], [place] [address] Amos Pabon MD [address] [place] [address] OF GASTROENTEROLOGY [place], [place] [id number] Follow-up Social History Tobacco Use Types Packs/Day [...] Previously called and spoke with RN at [facility] as per previous note. Also faxed recommendations to the facility. Patient can call if any issues/swelling arise. documented in this encounter Plan of Treatment Upcoming Encounters Date Type Department Care Team (Late st Contact Info) Description 11/29/2024 8:30 AM INTERPERSONAL COMMUNICATIONS PROFESSOR Office Visit [facility] - Orthopedic Surgery [address] [place] [address] Toño Cabrera MD 1031 [facility] 280 [place] [address] 01/08/2025 8:00 AM CDT Appointment [facility] [address] [place] [address] 01/08/2025 9:00 AM CDT Office Visit [facility] - GI [address] [facility], [place] [address] Amos Pabon MD [address] [facility] 2L [place] [address] documented as of this encounter Goals Goal [...] on filedocumented in this encounter Care Teams Alum Operator Relationship Specialty Start Date End Date Major Kraft MD PCP - General 07/01/21 06/08/22 Eric Oconnell MD Hospitalist 10/10/21 documented as of this encounter
--- OUTSIDE RECORDS SUMMARY | 2024-10-19 23:37 | XMS_ITS | Encounter Summary ---
Author Organization [facility] Address [address] [facility] [place] [address] Care Team Providers Care Customer Success Associate Name Role Phone Major Kraft MD Primary Care Provider [phone] Eric Oconnell MD Unavailable + [phone] Encounter Details Date Type Department Care Team (Latest Contact Info) Description 02/16/2022 2:04 PM CDT - 02/16/2022 11:59 PM CDT Hospital Encounter [facility] OP DRAW STATION [address] [place] [phone] Ayden Stearns MD [address] [place] [address] Discharge Disposition: Home or Self Care Social [...] 02/19/2023 vitamin D, ergocalciferol, (DRISDOL) 1.25 MG (98124 UT) capsule Take 1 (one) capsule by [...] Contact Info) Description 11/29/2024 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.] Name Priority Date/Time Associated Diagnosis Comments PT-INR [facility] Routine 02/16/2022 2:26 PM CDT Cirrhosis of [...] - 8.3 g/dL 022 3:50 PM CDT [facility] Albumin 4.0 3.4 - 5.0 g/dL 02/16/2022 3:50 PM T [facility] Bilirubin Total 0.5 0.2 - 1.2 mg/dL 01/24 3:50 PM [facility] Bilirubin Conjugated 0.3 0.1 - 0.5 mg/dL 02/16/2022 3:50 PM [facility] Bilirubin Unconjugated 0.2 Unconjugated Bilirubin is a calculated value: Reference ranges have not been established. mg/dL 02/16/2022 3:50 PM [facility] Alkaline Phosphatase 130 40 - 150 U/L 02/16/2022 3:50 PM [facility] ALT 20 5 - 55 U/L 02/16/2022 3:50 PM [facility] AST 24 5 - 34 U/L 02/16/2022 3:50 PM [facility] Albumin/Globulin Ratio 0.8(L) 1.1 - 2.3 02/16/2022 3:50 PM [facility] Blood BLOOD SPECIMEN / Unknown Lab Venipuncture / Unknown 02/16/2022 2:26 PM CDT 02/16/2022 3:20 PM CDT Amos Pabon MD LAB - CHEMISTRY KURT ZARAGO[facility] Organization Address City/State/ZIP Co de Phone Number [facility] [address] [place] [address], [facility] [phone] * (ABNORMAL) BASIC METABOLIC PANEL (CALCIUM TOTAL) (02/16/2022 2:26 PM CDT) BUN 9 7 - 26 mg/dL 02/16/2022 3:50 PM T [facility] Creatinine 0.76 0.71 - 1.16 mg/dL 02/16/2022 3:50 PM T [facility] Sodium 139 136 - 145 mmol/L 02/16/2022 3:50 PM T [facility] Potassium 3.7 3.5 - 4.5 mmol/L 02/16/2022 3:50 PM [facility] Chloride 98 98 - 107 mmol/L 02/16/2022 3:50 PM [facility] CO2 31(H) 22 - 29 mmol/L 02/16/2022 3:50 PM T [facility] Glucose 70 70 - 115 mg/dL 02/16/2022 3:50 PM T [facility] Calcium 10.4(H) 8.4 - 10.2 mg/dL 02/16/2022 3:50 PM [facility] Anion Gap 14 8 - 18 02/16/2022 3:50 PM [facility] BUN/Creatinine Ratio 12 7 - 23 02/16/2022 3:50 PM [facility] Osmolality Calculated 285 270 - 300 mOsm/kg 02/16/2022 3:50 PM [facility] eGFR by CKD-EPI >90 >=90 mL/min/1.7 3 m2 02/16/2022 3:50 PM T [facility] Blood BLOOD SPECIMEN / Unknown Lab Venipuncture / Unknown 02/16/2022 2:26 PM CDT 02/16/2022 3:20 PM CDT Amos Pabon MD LAB - CHEMISTRY KURT Cid Organization Address City/State/ZIP Co de Phone Number [facility] [address] [place] [address], [facility] [phone] * PT-INR [facility] (02/16/2022 2:26 PM CDT) Pathologist [facility] PT 13.5 12.1 - 14.8 Seconds 02/16/2022 3:28 PM CDT [facility] INR 1.0 See Comment 02/16/2022 3:28 PM [facility] Comment:The suggested therap eutic range for standard coumadin (warfarin) therapy is an INR of 2.0-3.0. For high-risk patients (Mechanical Mitral Valve Prosthesis, etc.), the suggested prophylactic therapeutic range is an INR of 2.5-3.5. Blood BLOOD SPECIMEN / Unknown Lab Venipuncture / Unknown 02/16/2022 2:26 PM CDT 02/16/2022 3:12 PM CDT Amos Pabon MD LAB - COAGULATION OR DERABLES [facility] [address] [place] [address], [facility] [phone] * CBC W/O DIFFERENTIAL (02/16/2022 2:26 PM CDT) WBC 9.7 3.5 - 10.5 10? 3 /uL 02/16/2022 3:40 PM CDT [facility] RBC 4.61 4.30 - 5.70 10? 6 /uL 02/16/2022 3:40 PM [facility] Hemoglobin 14.6 12.0 - 17.6 g/dL 02/16/2022 3:40 PM [facility] Hematocrit 43.5 35.2 - 51.7 % 02/16/2022 3:40 PM [facility] MCV 94.4 80.7 - 98.3 fL 02/16/2022 3:40 PM T [facility] MCH 31.7 26.7 - 34.0 pg 02/16/2022 3:40 PM [facility] MCHC 33.6 30.8 - 35.9 g/dL 02/16/2022 3:40 PM [facility] Platelet Count 184 150 - 400 10? 3 /uL 02/16/2022 3:40 PM [facility] RDW-SD 49.4 36.0 - 50.0 fL 02/16/2022 3:40 PM CDT [facility] RDW-CV 14.5 11.2 - 14.8 % 02/16/2022 3:40 PM CDT [facility] MPV 11.6 9.4 - 12.9 fL 02/16/2022 3:40 PM CDT [facility] nRBC Absolute 0.00 0 10? 3 /uL 02/16/2022 3:40 PM CDT [facility] nRBC Auto 0.0 0 /100 WBC 02/16/2022 3:40 PM CDT [facility] Blood BLOOD SPECIMEN / Unknown Lab Venipuncture / Unknown 02/16/2022 2:26 PM CDT 02/16/2022 3:19 PM CDT Amos Pabon MD LAB - HEMATOLOGY ORD MIKE Performing Organization Address City/[facility]/ZIP Co de Phone Number [address] [address], [place] [phone] * ALPHA FETOPROTEIN BLOOD TUMOR MARKER (02/16/2022 2:26 PM CDT) Alpha-Fetoprote in Tumor Marker 2.9 <=8.3 ng/mL 02/16/2022 4:09 PM CDT [facility] Comment: AFP values will vary depending on testing procedure used. Results are not comparable across different methods. AFP values obtained by [facility] using an Jenkins Alinity Immunoassay. Blood BLOOD SPECIMEN / Unknown Lab Venipuncture / Unknown 02/16/2022 2:26 PM CDT 02/16/2022 3:24 PM CDT Amos Pabon MD LAB - CHEMISTRY KURT ZARAGOZA [address] [address], [place] [phone] documented in this encounter Visit Diagnoses Diagnosis Cirrhosis of liver with ascites, unspecified hepatic cirrhosis type (HCC) documented in this encounter Care Teams Customer Success Associate Relationship Specialty Start Date End Date Major Kraft MD PCP - General 07/01/21 06/08/22 Eric Oconnell MD Hospitalist 10/10/21 documented as of this encounter
--- OUTSIDE RECORDS SUMMARY | 2024-10-19 23:38 | XMS_ITS | Encounter Summary ---
Author Organization [facility] Healthcare Address [address] [place] [address] Care Team Providers Care Business Support Name Role Phone Major Kraft MD Primary Care Provider [phone] Encounter Details Date Type Department Care Team (Late st Contact Info) Description 01/01/2022 Orders Only [facility] [address] [facility] 1st [place] [address] Max Tate, ELEMENTARY EDUCATOR [address] [place] [address] Fracture of unspecified part of neck of left femur, subsequent encounter for closed fracture with routine healing (Primary Dx) Social History Tobacco Use Types Packs/Day Years Used Date Smoking Tobacco: Never Assessed Sex and Gender Information Value Date Recorded Sex Assigned at Not on file 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
--- OUTSIDE RECORDS SUMMARY | 2024-10-19 23:38 | XMS_ITS | Encounter Summary ---
Author Organization [facility] Healthcare Address [address] [place], [place] [address] Care Team Providers Care Gas Fitter Name Role Phone Major Kraft MD Primary Care Provider [phone] Reason for Referral * Diagnostic Imaging (Routine) - Closed Specialty Diagnoses / Procedures Referred By Contac t Referred To Contact Diagnoses Left hip pain Procedures XR Hip Left 2 or 3 Views Isaak Chase MD [address] [place] [address] [address] Phone: tel: fax: [address] [phone] Referral ID Status Reason Start Date Expiration Date Visits Re quested Visits Authorized [id number] Closed 08/24/2022 09/23/2023 1 1 Reason for Visit * Diagnostic Imaging (Routine) - Closed Specialty Diagnoses / Procedures Referred By Contac t Referred To Contact Diagnoses Left hip pain Procedures XR Hip Left 2 or 3 Views Isaak Chase MD [address] [place] [address] [address] Phone: tel: fax: [address] [phone] Referral ID Status Reason Start Date Expiration Date Visits Re quested Visits Authorized [id number] Closed 08/24/2022 09/23/2023 1 1 Encounter Details Date Type Department Care Team (Latest Contact Info) Description 08/25/2022 1:28 PM CDT - 08/25/2022 11:59 PM CDT Hospital Encounter [facility] Imaging [address] [place] [address] Left hip pain Discharge Disposition: Discharge to home or self care Social History Tobacco Use Types Packs/Day Years Used Date Smoking Tobacco: Never Sex and Gender Information Value Date Recorded Sex Assigned at Not on file 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 Gender Identity Not on file Sexual Orientation [...] D: ??08/25/2022 2:46 PM T: Report ID: [id number] Reading Location: ??[place] [address] Procedure Note Isaak Chase MD - 08/25/2022 [...] signed by Isaak BUNDY T: Report ID: [id number] Reading Location: [place] [address] Isaak Chase MD IMG XR PROCEDURES Final Resu lt documented in this encounter Visit Diagnoses Diagnosis Left hip pain Pain in joint, pelvic region and thigh documented in this encounter Care Teams Gas Fitter Relationship Specialty Start Date End Date Major Kraft MD PCP - General Internal Medicine 11/07/21 documented as of this encounter
--- OUTSIDE RECORDS SUMMARY | 2024-10-19 23:38 | XMS_ITS | Encounter Summary ---
Author Organization [facility] Address [address] [address] Care Team Providers Care Swager Operator Name Role Phone Major Kraft MD Primary Care Provider [phone] Reason for Referral * Diagnostic Imaging (Routine) - Closed Specialty Diagnoses / Procedures Referred By Contac t Referred To Contact Diagnoses Left hip pain Procedures XR Hip Left 2 or 3 Views Isaak Chase MD [address] [place] [address] [address] Phone: tel: fax: [address] [phone] Referral ID Status Reason Start Date Expiration Date Visits Re quested Visits Authorized [id number] Closed 08/24/2022 09/23/2023 1 1 Reason for Visit * Reason Comments Pain Encounter Details Date Type Department Care Team (Late st Contact Info) Description 08/25/2022 2:00 PM CDT Office Visit [facility] Orthopedics and Sports Medicine [address] [place] [address] Isaak Chase MD [address] [place] [address] [address] 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 He has been treated at [facility] for injuries sustained to his left [...] was seen by joint reconstruction surgeon at [facility] and advised to have a left [...] think he is best served at the [place] setting which is where he was seen [...] D: ??08/25/2022 2:46 PM T: Report ID: [id number] Reading Location: ??[id number] Procedure Note Isaak Chase [...] signed by Isaak BUNDY T: Report ID: [id number] Reading Location: [place] [address] us Isaak Chase MD IMG XR PROCEDURES [...] 3 added in this encounter Care Teams Swager Operator Relationship Specialty Start Date End Date Major Kraft MD PCP - General Internal Medicine 11/07/21 documented as of this encounter
--- OUTSIDE RECORDS SUMMARY | 2024-10-19 23:38 | XMS_ITS | Encounter Summary ---
Author Organization [facility] Healthcare Address [address] [place], [place] [address] Care Team Providers Care Motion Picture Actor Name Role Phone Major Kraft MD Primary Care Provider [phone] Reason for Visit * Diagnostic Imaging (Routine) - Closed Specialty Diagnoses / Procedures Referred By Rod t Referred To Contact Diagnoses Ascites Procedures US Ascites US Guided Paracentesis Major Kraft MD Phone: tel: fax: [address] [address] Referral ID Status Reason Start Date Expiration Date Visits Re quested Visits Authorized [id number] Closed 11/06/2021 12/06/2022 1 1 Encounter Details Date Type Department Care Team (Latest Contact Info) Description 11/07/2021 2:00 PM FARM LOAN REPRESENTATIVE - 11/07/2021 11:59 PM FARM LOAN REPRESENTATIVE Hospital Encounter [address] [address] Ascites Discharge Disposition: Discharge to home or self care Social History Tobacco Use Types Packs/Day Years Used Date Smoking Tobacco: Never Assessed Sex and Gender Information Value Date Recorded Sex Assigned at Not on file 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 Gender Identity Not on file Sexual Orientation Not on file documented as of this encounter Discharge Disposition Disposition Code Departure Means Destination Discharge to home or self care documented in this encounter Plan of Treatment Not on file documented as of this encounter Procedures Procedure Name Priority Date/Time Associated Diagnosis Comments US ASCITES Schedule Routine, Read Routine (OP Routine) 11/07/2021 3:10 PM FARM LOAN REPRESENTATIVE Ascites documented in this encounter Results * US Ascites (11/07/2021 3:10 PM FARM LOAN REPRESENTATIVE) Anatomical Region Laterality Modality Abdomen and Pelvis N/A Ultrasound, C omputed Radiography 11/07/2021 3:24 PM FARM LOAN REPRESENTATIVE Narrative 11/07/2021 3:27 PM FARM LOAN REPRESENTATIVE EXAM DESCRIPTION: ?? US ASCITES REASON FOR STUDY: ?? ASCITES. ??Paracentesis requested. TECHNIQUE: Limited Static and real time imaging performed of the 4 abdominal quadrants and the midline. ??The patient was scanned by the sustain engineer and by Dr. Parish, as he had [...] D: ??11/07/2021 3:27 PM T: Report ID: [id number] Reading Location: ??[id number] Procedure Note Cameron Parish MD - 11/07/2021 EXAM DESCRIPTION: US ASCITES REASON FOR STUDY: ASCITES. Paracentesis requested. TECHNIQUE: Limited Static and real time imaging performed of the 4abdominal quadrants and the midline. The patient was scanned by the sustain engineer andby Dr. Parish, as he had presented [...] by Cameronbaylee Parish M.D. T: Report ID: [id number] Reading Location: [id number] [place] Major Kraft MD IMG US PROCEDURES Final Res ult documented in this encounter Visit Diagnoses Diagnosis Ascites documented in this encounter Care Teams Motion Picture Actor Relationship Specialty Start Date End Date Major Kraft MD PCP - General Internal Medicine 11/07/21 documented as of this encounter
--- OUTSIDE RECORDS SUMMARY | 2024-10-19 23:38 | XMS_ITS | Encounter Summary ---
Author Organization [facility] Healthcare Address [address] [place] [address] Care Team Providers Care Game Designer Name Role Phone Major Dotson MD Primary Care Provider [phone] Harpal Lopez MD Unavailable [phone] Reason for Visit * Reason Comments Chest Pain * Auth/Cert (Routine) Specialty Diagnoses / Procedures Referred By Contac t Referred To Contact Diagnoses Alcohol withdrawal syndrome with complication (HCC) Procedures n/a Referral ID Status Reason Start Date Expiration Date Visits Re quested Visits Authorized [id number] 1 1 Encounter Details Date Type Department Care Team (Late st Contact Info) Description 09/28/2023 7:58 PM QUARRY BOSS - 10/05/2023 1:06 PM QUARRY BOSS Hospital Encounter [address] [address] Mansoor Valdes MD [address] [place] [id number] Miguelito James Jr., MD [address] [place] [address] Manuelito Hannah MD [address] [place] [id number] Donal Cabrera MD [address] [place] [address] Negrito Crowley MD [address] [place] [id number] Alcohol withdrawal syndrome with complication (HCC) (Primary Dx) Discharge Disposition: Discharge to SNF Social History Tobacco Use Types Packs/Day Years Used Date Smoking Tobacco: Every Day Cigarettes 0.3 18 Tobacco Cessation:Ready to Q uit: Not Asked; Counseling Given: Not Answered [facility] Utilities Answer Date Recorded In the past 12 months has th e [employer], gas, oil, or water [employer] threatened to shut off services in your [...] often do you attend chur ch or sikhism services? Never 09/29/2023 Do you belong to any clubs o r organizations such as druze groups, unions, fraternal or athletic groups, or [...] place to sleep or slept in a mcc (including now)? No 09/29/2023 Personal Safety Answer Date Recorded Have you ever been in or are you currently in a harmful physical or emotional relationship or is someone making you feel afraid or unsafe? Denies 09/28/2023 Sex and Gender Information Value Date Recorded Sex Assigned at Not on file Legal Sex Male 1:24 PM QUARRY BOSS Gender Identity Not on file Sexual Orientation Not on file Occupation Industry Job Start Date Job End Date disabled Not on file Not on file Not on file documented as of this encounter Last Filed Vital Signs Vital Sign Reading Time Taken Comments Blood Pressure 111/80 10/05/2023 11:30 AM QUARRY BOSS Pulse 71 10/05/2023 11:30 AM QUARRY BOSS Temperature 36.5 ??C (97.7 ??F) 10/05/2023 1 1:30 AM QUARRY BOSS Respiratory Rate 16 10/05/2023 11:3 0 AM QUARRY BOSS Oxygen Saturation 96% 10/05/2023 11: 30 AM QUARRY BOSS Inhaled Oxygen Concentration - - Weight 90.6 kg (199 lb 11.8 oz) 10/05/2023 7:48 AM QUARRY BOSS Height 170.2 cm (5' 7.01 ) 09/30/2023 7:38 AM CS T Body Mass Index 31.28 09/30/2023 7:38 AM QUARRY BOSS documented in this encounter Discharge Summaries * Negrito Crowley MD - 10/05/2023 1:06 PM CST Inpatient Discharge Summary Patient Name - Love Diaz Patient Age - 38 yrs Patient - [id number] [facility] - [id number] Document Creation Date: 10/10/2023 Admitting Provider, : Manuelito Hannah MD Discharge Provider, : No att. providers found Primary Care Physician at Discharge: Major Dotson MD [phone] Admission Date: 09/28/2023 Discharge Date/time: 10/05/2023 Admission Location: [facility] LOS - LOS: 6 days DETAILS OF HOSPITAL STAY Hospital Problems/Diagnoses Principal Problem: Alcohol withdrawal syndrome with complication (HCC) Active Problems: Hepatic cirrhosis (HCC) Hyponatremia Reason for Hospitalization: 38 y.o. male with a PMHx significant for alcoholism and cirrhosis. Patient presents to the emergency department with alcohol withdrawal. Patient had been at [facility] rehab but was on a 7 day leave when he began drinking heavily. Patient states he has been drinking 20-30 beers per day. [facility].His last alcohol use was yesterday. He currently denies chest pain, shortness breath, nausea, vomiting, diarrhea. He does endorse right upper quadrant pain and states that has been chronic. Hospital Course: Alcohol dependence c/b withdrawal syndrome - [facility], was [...] for discharge. - Patient has appointment with [facility] Hepatology in October and asked him to [...] Major Dotson MD Specialty: Internal Medicine [address] [address] Next Steps: Follow up Comments: Follow up with established provider: 1 week Questions: To provider: MAJOR DOTSON Kamran Ul Haq, MD Specialty: Internal Medicine Relationship: Referring Physician [address] [place] [address] Next Steps: Follow up Comments: Follow up with established provider: Other (specify) as previously scheduled Questions: To provider: HARPAL LOPEZ Charles W., MD Specialty: Internal Medicine Relationship: PCP - General [address] [place] [address] Next Steps: Follow up Please schedule an appointment with the following provider(s): Major Dotson MD [address] [address] Harpal Lopez MD [address] [place] [address] Major Dotson MD [address] [place] [address] ANCILLARY INFORMATION Other Procedures & Diagnostic Tests: Transthoracic Echo (TTE) Complete W Doppler/CF Result Date: 09/29/2023 Adult Echocardiogram + + :Name: LOVE DIAZ Study Date: 09/29/2023 Status: [facility] : : Patient Location: [facility] 2 CTR^[id number]^Height: 67 in : : Weight: 193 lbBP: [...] Rolando Jade M.D., Sid.O. T: Report ID: [id number] Reading Location: [place] [address] Recent Labs: Recent Labs Lab Units 10/04/23 [...] BUN SERUM mg/dL 10 CREATININE mg/dL 0.60* [id number] mL/min/1.73 m2 126 GLUCOSE mg/dL 92 CALCIUM [...] Vaccination (12+ YRS) 08/14/2021 Negrito Crowley MD RY BOSS documented in this encounter Discharge Instructions * Discharge Instr - Diet* Yuko Ham RD - 09/29/2023 3:38 PM QUARRY BOSS Recommend to eat a generally healthy diet with foods that include a variety of fruits, vegetables, whole-grain breads, low-fat dairy products, beans, lean meats, and fish. Limit fast food, sugary drinks, excess salt, and desserts. Limit sugary drinks like lemonade, regular soda, Gatorade, and sweettea and drink water throughout the day. Call [phone] to speak with a dietitian about any diet related concerns. Additional resources are available online from the Academy of Nutrition and Dietetics at www.eatright.org RY BOSS * Attachments The following attachments cannot be sent through Care Everywhere. * Alcohol Withdrawal (Discharge Care) (Uzbek) documented in this encounter Medications at Time [...] @ 1306 Documents scanned to [employer] RY BOSS * Jazmín Leonardo - 10/05/2023 12:10 PM CST PRS f/u with PT before d/c. PRS and pt talked about how [facility] was a fresh start because he was nervous [facility] would treat him different. PT sstated that he wants to remain sober, prs and pt discussed how to avoid triggers. Jazmín Leonardo, Peer Hand Blocker Medical Stabilization [phone] RY BOSS * Sheridan Zheng, ALFREDO - 10/05/2023 10:19 AM CST CARE COORDINATION DISCHARGE PLANNING New SNF Spoke with Carolina at facility and patient can admit today. Bedside RN to call report and fax orders to numbers listed below. Pt and family aware of plans [facility] [address] [place] [address] TRANSPORTATION: Transportation provided by van and cotton picking machine operator is anticipated at 1300. ANTICIPATED D/C DATE: today CM will continue to follow for progression of care, if further needs for discharge or barriers to care arise, please reach out to care management team. Sheridan Zheng RN 10/05/2023 10:19 AM RY BOSS * Donal Cabrera MD - 10/04/2023 3:46 PM CST GENERAL INTERNAL MEDICINE DAILY PROGRESS NOTE Admit Date: 09/28/2023 LOS: 5 Brief Hospital Course: 38M with hx significant for alcohol dependence, alcohol abuse, and cirrhosis presented with alcoholintoxication and was admitted for alcohol withdrawal treatment. He had been at [facility] after sustaining a hip fracture and was on a 7-day leave when he started drinking alcohol heavily (20- 30 beers daily). 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 Pt was started on CIWA protocol. Pt [...] 1 patch at 09/29/23 0004 influenza quadrivalent [id number] (FLULAVAL,FLUARIX,FLUZONE) 60 mcg (15 mcg x 4)/0.5 [...] LOVE DIAZ Ashley Study Date: 09/29/2023 Status: [facility] : : Patient Location: [facility] 2 CTR^[id number]^MHHeight: 67 in : : Weight: 193 lbBP: [...] Rolando Jade M.D., BinOKaran T: Report ID: [id number] Reading Location: [place] [address] Assessment and Plan: Alcohol dependence c/b withdrawal syndrome - [facility], was [...] time spent in any separately reportable services. RY BOSS * Estela Jackson PTA - 10/04/2023 11:15 AM CST Physical Therapy 10/04/23 1115 PT Last Visit PT Missed Visit Reason Procedure/testing/appointment (Pt off floor for testing) RY BOSS * Jazmín Leonardo - 10/04/2023 9:24 AM CST PRS went to follow up with pt after the weekend. PT started shaking when PRS came all the way into the room and stated he feels worse today than when he first came in and requested PRS come back later Jazmín Leonardo, Peer Hand Blocker Medical Stabilization [phone] RY BOSS * Yuko Ham RD - 10/04/2023 8:44 [...] with alcohol withdrawal. Patient had been at [facility] but was on a7 day leave when he began drinking heavily. Patient states he has been drinking 20-30 beers per day. He was at [facility] after sustaining a hip [...] mL/hr (10/04/23 0000) PRN Meds: influenza quadrivalent [id number] LORazepam OR LORazepam OR LORazepam OR LORazepam [...] 10 CREATININE mg/dL 0.60* < > 0.60* [id number] mL/min/1.73 m2 126 < > 126 CALCIUM [...] of Weight Used for Estimated Protein : [place] Total Fluid Estimated Needs: 2012 Fluid Needs Based on : 30 ml/kg Type of Weight Used for EstimatedFluid Needs: [place] Dietary Orders (From admission, onward) Start Ordered [...] . Reports he was eating well at [facility] but has been eating poorly and struggling [...] and drink water throughout the day. Call [phone] to speak with a dietitian about any diet related concerns. Additional resources are available online from the Academy of Nutrition and Dietetics at www.eatright.org Yuko [address] RD RY BOSS * Donal Cabrera MD - 10/03/2023 5:16 PM CST GENERAL INTERNAL MEDICINE DAILY PROGRESS NOTE Admit Date: 09/28/2023 LOS: 4 Brief Hospital Course: 38M with hx significant for alcohol dependence, alcohol abuse, and cirrhosis presented with alcoholintoxication and was admitted for alcohol withdrawal treatment. He had been at [facility] after sustaining a hip fracture and was on a 7-day leave when he started drinking alcohol heavily (20- 30 beers daily). 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 Pt was started on CIWA protocol. Pt [...] 1 patch at 09/29/23 0004 influenza quadrivalent [id number] (FLULAVAL,FLUARIX,FLUZONE) 60 mcg (15 mcg x 4)/0.5 [...] :Name: LOVE DIAZ Study Date: 09/29/2023 Status: [facility] : : Patient Location: [facility] 2 CTR^[id number]^MHHeight: 67 in : : Weight: 193 lbBP: [...] Rolando Jade M.D., Sid.OKaran T: Report ID: [id number] Reading Location: [place] [address] Assessment and Plan: Alcohol dependence c/b withdrawal syndrome - [facility], was [...] time spent in any separately reportable services. RY BOSS * Donal Cabrera MD - 10/02/2023 1:10 PM CST GENERAL INTERNAL MEDICINE DAILY PROGRESS NOTE Admit Date: 09/28/2023 LOS: 3 Brief Hospital Course: 38M with hx significant for alcohol dependence, alcohol abuse, and cirrhosis presented with alcoholintoxication and was admitted for alcohol withdrawal treatment. He had been at [facility] after sustaining a hip fracture and was on a 7-day leave when he started drinking alcohol heavily (20- 30 beers daily). 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 Pt was started on CIWA protocol. Pt [...] 1 mg at 10/02/23 0803 influenza quadrivalent [id number] (FLULAVAL,FLUARIX,FLUZONE) 60 mcg (15 mcg x 4)/0.5 [...] 4 mg 4 mg intravenous Q6H PRN Donla Cabrera MD 4 mg at 09/30/23 1256 [...] 17 g 17 g oral Daily PRN Iisdra Vega NP propranoloL (INDERAL) tablet 10 mg [...] meals Isidra Vega NP 1 g at 10/02/23 1146 thiamine (VITAMIN B-1) tablet 100 mg 100 mg oral Daily Isidra Vega, MIXING HOUSE OPERATOR 100 mg at 10/02/23 0803 Data [...] :Name: LOVE DIAZ Study Date: 09/29/2023 Status: [facility] : : Patient Location: [address]^[id number]^MHHeight: 67 in : : Weight: 193 lbBP: [...] M.D., M.D., D.O. MW T: Report ID: [id number] Reading Location: [place] [address] Assessment and Plan: Alcohol dependence c/b withdrawal syndrome - patient from [facility], was [...] time spent in any separately reportable services. RY BOSS * Amaris Alva, PT - 10/01/2023 3:57 PM CST Physical Therapy 10/01/23 4140 General Chart Reviewed Yes Session Type Evaluation [...] [facility] Prior Function Level of [place] Independent with ADLs;Independent functional transfers;Independent with wheelchair;Dependent [...] endurance;Impaired balance;Decreased mobility;Pain Recommendation/Plan PT Recommendation/Plan (S) Cloth Sponger Care Patient at high risk for Falls;Readmission;Injury [...] End Date End Date PT LTG - [facility] 1 10/01/23 10/15/23 -- Goal Details: Will transfer bed<>chair with ww and CGA of 1 and cues. Pt performs mobility NWB L LE due to pain. Goal Start Date Expected End Date End Date PT [facility] - [facility] 2 10/01/23 10/15/23 -- Goal Details: Will perform R LE and L knee/ankle AROM ex with min cues Goal Start Date Expected End Date End Date PT [facility] 3 10/01/23 10/15/23 -- Goal Details: Will [...] status posted at bedsideand within medical record. RY BOSS * Donal Cabrera MD - 10/01/2023 3:57 PM CST GENERAL INTERNAL MEDICINE DAILY PROGRESS NOTE Admit Date: 09/28/2023 LOS: 2 Brief Hospital Course: 38M with hx significant for alcohol dependence, alcohol abuse, and cirrhosis presented with alcoholintoxication and was admitted for alcohol withdrawal treatment. He had been at [facility] after sustaining a hip fracture and was on a 7-day leave when he started drinking alcohol heavily (20- 30 beers daily). 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 Pt was started on CIWA protocol. Pt [...] 1 mg at 10/01/23 0825 influenza quadrivalent [id number] (FLULAVAL,FLUARIX,FLUZONE) 60 mcg (15 mcg x 4)/0.5 [...] 09/29/2023 Status: B : : Patient Location: [address]^[id number]^MHHeight: 67 in : : Weight: 193 lbBP: [...] M.D..O. Kiran Stacy M.D. T: Report ID: [id number] Reading Location: [id number] Assessment and Plan: Alcohol dependence c/b withdrawal syndrome - [facility], was [...] time spent in any separately reportable services. RY BOSS * Sheridan Zheng RN - 10/01/2023 2:49 PM CST Care Management Weekly Progression of Care Review Pt originally admitted for Alcohol withdrawal syndrome with complication (HCC) [F10.933] PCP: Major Dotson MD Current Plan of Care Includes: CIWA PT/OT Recommendations: to be seen still. He indicated his hip fx was recent and he was at [facility] for rehab but it looks like the fx was a year ago and he had been at [facility] under LTC. Barriers to Discharge: CIWA Anticipate Discharge Plan/Needs: [facility] for [facility] [place] ([facility] )[facility] will not take him back Expected Discharge Date: Wednesday Sheridan Zheng RN 10/01/2023 2:49 PM RY BOSS * Linda Fang, OT - 10/01/2023 1:16 PM CST Occupational Therapy 10/01/23 1316 General Chart Reviewed Yes Session Type Evaluation OT Received On 10/01/23 Safe Environment Arm band checked;Patient found in supine;Gait belt utilized for all out of bed mobility Subjective Agreeable to Therapy Subjective Comment pt reports that he has been a resident at [facility] for since his Hip fx in [...] IV Home Living Additional Comments Resident at [facility]. Has a ww and manual wc. [...] of care initiated Recommendation/Plan OT Recommendation (S) Fdc Facility Patient at high risk for Falls;Readmission;Injury [...] Date Expected End Date End Date OT [facility] - [facility] 1 10/01/23 10/08/23 -- Goal Details: 1) LE ADL SBA/MIN ASSIST WITH AE PRN. Goal Start Date Expected End Date End Date OT [facility] - [facility] 2 10/01/23 10/08/23 -- Goal Details: 2) FUNCTIONAL MOBILITY TO/FROM BATHROOM AND ALL ASPECTS TOILETING MODIFIED INDEP WITHDME. Goal Start Date Expected End Date End Date OT [facility] - [facility] 3 10/01/23 10/08/23 -- Goal Details: 3) STAND AT SINK X4 MIN FOR ADL WITH GOOD BALANCE. Goal Start Date Expected End Date End Date OT [facility] - [facility] 4 10/01/23 10/08/23 -- Goal Details: 4) [...] needed due to weakness or equipment management. RY BOSS * Javy Chung, CAR PACKER - 10/01/2023 10:43 AM CST I spoke to the financial administrator (Lidia) at [facility] to ensure that they could accept if d/c tomorrow. She said that she is waiting to hear from corporate re: that. She said that he wasn't actually on a 7 day leave but had d/c ama and was having gallons of liquor delivered to himself at the facility via door dash. I am sending out more referrals. RY BOSS * Jazmín Leonardo - 09/30/2023 3:57 PM CST PRS helped pt get enrolled in [place]. PT is to call in on Wednesday at 1pm. PRS gave pt a paper with all information needed. Jazmín Leonardo Peer Hand Blocker Medical Stabilization [phone] RY BOSS * Jazmín Leonardo - 09/30/2023 2:17 PM CST PRS met with pt to discuss outpatient Alcohol Use Disorder/ AUD treatment. PT stated that he would like to do outpatient but doesn't know if he could since [facility]. PRS explained to PT that she called and confirmed with facility that they would get pt to and from appts. PRS discussed [place] with pt and pt was agreeable. PRS cannot set up appt until PThas a d/c date. PRS will follow up with pt daily until d/c is known and then PRS will get pt set upwith an outpatient appt through [place]. PRS will add ChestRockeTalks information to AVS. Jazmín Leonardo Peer Hand Blocker Medical Stabilization [phone] RY BOSS * Donal Cabrera MD - 09/30/2023 10:49 AM CST GENERAL INTERNAL MEDICINE DAILY PROGRESS NOTE Admit Date: 09/28/2023 LOS: 1 Brief Hospital Course: 38M with hx significant for alcohol dependence, alcohol abuse, and cirrhosis presented with alcoholintoxication and was admitted for alcohol withdrawal treatment. He had been at [facility] after sustaining a hip fracture and was on a 7-day leave when he started drinking alcohol heavily (20- 30 beers daily). 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 Pt was started on CIWA protocol. Pt [...] 1 mg at 09/30/23 0919 influenza quadrivalent [id number] (FLULAVAL,FLUARIX,FLUZONE) 60 mcg (15 mcg x 4)/0.5 [...] 09/29/2023 Status: B : : Patient Location: [facility]^[id number]^MHHeight: 67 in : : Weight: 193 lbBP: [...] Jade M.D., Sid.O. MW T: Report ID: [id number] Reading Location: [place] [address] Assessment and Plan: Alcohol dependence c/b withdrawal [...] time spent in any separately reportable services. RY BOSS RY BOSS * Jazmín Leonardo - 09/30/2023 9:51 AM CST Peer Hand Blocker- PRS consulted for Alcohol Use Disorder-AUD/ETOH. PRS went to meet with PTto discuss outpatient treatment and resources. PT stated that he wanted PRS to [facility] and [...] to followup this afternoon. Jazmín Leonardo, Peer Hand Blocker Medical Stabilization [phone] RY BOSS * Zo Campbell, [facility] - 09/29/2023 11:35 AM CST Pharmacy Medication Reconciliation Note Patient Love Diaz is a 38 y.o. male who presents to [facility] 2 [id number]. The prior to admission home medication list [...] Confirmed medications against med list provided by [facility] Per facility RN patient has resided there since 05-28-22. Patient presently on JOY starting approximately 09-21-23 set to end and with medications(minus tramadol) to last through 09-24-23. Sources of information for this medication reconciliation include: care facility and medication list Haresh Lambert CPhT 09/29/2023 11:12 AM Pharmacist reviewed patient's medication history as completed by pharmacy coordinator and verified accuracy and completeness. Documentation updated accordingly. Zo Campbell RPh 09/29/2023 11:35 AM RY BOSS * Kareem Blancas - 09/29/2023 9:41 AM CST Pt did not indicate a desire for spiritual support. 09/29/23 0900 Time Spent Start Time 0941 Patient Spiritual Assessment Spirituality Assessed Yes [place] Affiliation Adventist Clinical Encounter Type Visited With Patient Response Type Routine visit RY BOSS * Javy Chung, CAR PACKER - 09/29/2023 9:14 AM CST Went to get some information from the pt re: residence, and if nursing facility, what he was there for. He was at [facility] but was out on a 7 day therapeutic leave , during whichhe drank heavily. Was there for left hip fx and has walker in room. Said he has excruciating pain with walking. Reports that he doesn't do drugs but drinks and smokes. Plans to go back to [facility] at d/c. Reports that the plan was to return on Wednesday. I asked if he would be interested in speaking with our medical stabilization team re: drinking issues. He said yes but requested not today. Feels terrible, but can talk to them tomorrow. Will contact [facility] and the med. Stab. Team. RY BOSS * Manuelito Hannah MD - 09/29/2023 1:38 [...] accepted telemetry admission Patient not seen by help desk consultant team. Full H&P to follow with daytime hospitalist. Holding orders placed based on ED sign-out and chart review. - Manuelito Hannah MD RY BOSS documented in this encounter H&P Notes * Isidra Vega NP - 09/29/2023 9:12 AM CST Images from the original note were not included. History & Physical Date of Service: 09/29/2023 Primary Care Provider: Major Dotson MD [phone] CHIEF COMPLAINT: Presents to the ED with a chief complaint of alcohol withdrawal. HPI: Patient is a 38 y.o. male with a PMHx significant for alcoholism and cirrhosis. Patient presents tot emergency department with alcohol withdrawal. Patient had been at [facility] but was on a 7 day leave when he began drinking heavily. Patient states he has been drinking 20-30 beers per day. He was at [facility] after sustaining a hip [...] Rolando Jade M.D., Sid.O. T: Report ID: [id number] Reading Location: [id number] ASSESSMENT/PLAN: Principal Problem: Alcohol withdrawal syndrome with [...] reportable services. Complexity: Moderate Voice recognition software [employer] may have been used to dictate and transcribe this document. Wood Model Maker variances may occur. Despite proofreading, typographical errors may occur. Isidra Vega AGACNP-BC 09/29/2023 9:12 AM For patients or family members viewing this note through CrimeReport[employer]: This note was written as a communication [...] Donal Cabrera MD at 09/29/2023 6:10 PM QUARRY BOSS RY BOSS RY BOSS documented in this encounter Consult Notes * [...] with alcohol withdrawal. Patient had been at [facility] but was on a7 day leave when he began drinking heavily. Patient states he has been drinking 20-30 beers per day. He was at [facility] after sustaining a hip [...] Daily Continuous Infusions: PRN Meds: influenza quadrivalent [id number] LORazepam OR LORazepam OR LORazepam OR LORazepam OR LORazepam OR LORazepam naloxone nicotine oxyCODONE polyethylene glycol ramelteon Recent Labs Lab Units 09/29/23 0537 SODIUM mmol/L 134* POTASSIUM PLASMA mmol/L 3.4 CHLORIDE mmol/L 99 CO2 mmol/L 22 BUN SERUM mg/dL 10 CREATININE mg/dL 0.60* [id number] mL/min/1.73 m2 126 CALCIUM mg/dL 8.2* ALBUMIN [...] Factor: 1925 Equation Chosen to Use by RD:[place] Vacasd Activity Factor: 1.1 Weight Used for Equation Calculations (RD Determined): 87.6 kg(193 lb 2 oz) . Total Protein Estimated Needs (gm): 80.52 Protein Needs Based on g/k.2 Type of Weight Used for Estimated Protein : [place] Total Fluid Estimated Needs: 2012 Fluid Needs Based on : 30 ml/kg Type of Weight Used for EstimatedFluid Needs: [place] Dietary Orders (From admission, onward) Start Ordered [...] . Reports he was eating well at [facility] but has been eating poorly and struggling [...] and drink water throughout the day. Call [phone] to speak with a dietitian about any diet related concerns. Additional resources are available online from the Academy of [employer]etics at www.eatright.org [address] RY BOSS documented in this encounter Nursing Notes * Maya Lou RN - 10/05/2023 1:05 PM CST Patient given discharge instructions and questions answered. Report called to [facility]. All personal belongings gathered and sent with patient. Discharged via transport van. RY BOSS * Yasir Hernandez Jr., RN - 10/02/2023 6:30 AM CST This RN agrees with assessments and charting of the DEWATERER OPERATOR this shift unless otherwise noted in the chart. RY BOSS * Isabel Grewal RN - 10/01/2023 7:38 AM CST This RN agrees with assessments and charting of the DEWATERER OPERATOR this shift unless otherwise noted in the chart. RY BOSS documented in this encounter ED Notes * [...] Final diagnoses: None Mansoor Valdes MD 09/28/232315 RY BOSS * Geo Resendiz RN - 09/28/2023 6:33 PM CST Pt c/o CP since this morning. Pt reports drinking heavy for 7 days. Pt has hx liver failure. AOx4. RY BOSS documented in this encounter Miscellaneous Notes * [...] improve to fullest extent possible Outcome: Progressing RY BOSS * Plan of Jovita - Maya Lou, [...] VSS. Patient is resting comfortably in chair. RY BOSS * Plan of Care - Sharla Castellon [...] by Sharla Castellon, RN Outcome: Progressing 10/03/2023 [facility] by Sharla Castellon RN Outcome: Progressing Goal: Will remain free from injury from falls 10/03/2023 [facility] by Sharla Castellon RN Outcome: Progressing 10/03/2023 [facility] by Sharla Castellon, RN Outcome: Progressing Goal: Will remain free from falls and injury in home environment 10/03/2023 [facility] by Sharla Castellon, RN Outcome: Progressing 10/03/2023 [facility] by Sharla Castellon RN Outcome: Progressing Problem: Lack of Knowledge: Goal: Knowledge on safety and abstaining from self-injurious behavior will increase 10/03/2023 [facility] by Sharla Castellon, RN Outcome: Progressing 10/03/2023 [facility] by Sharla Castellon RN Outcome: Progressing Goal: Knowledge of therapies/resources will increase 10/03/2023 [facility] by Sharla Castellon RN Outcome: Progressing 10/03/2023 [facility] by Sharla Castellon RN Outcome: Progressing Problem: Health Behavior: Goal: Ability to manage health-related needs will improve 10/03/20231352 by Sharla Castellon RN Outcome: Progressing 10/03/2023 [facility] by Sharla Castellon RN Outcome: Progressing Problem: Low Risk for Self-Injurious Behavior: Goal: Ability to remain free from injury will improve Description: (Low Risk) 10/03/2023 [facility] by Sharla Castellon RN Outcome: Progressing 10/03/2023 [facility] by Sharla Castellon RN Outcome: Progressing Problem: Lack of Knowledge: Goal: Knowledge of disease or condition will improve 10/03/2023 [facility] by Sharla Castellon RN Outcome: Progressing 10/03/2023 [facility] by Sharla Castellon RN Outcome: Progressing Goal: Understanding of discharge needs will improve 10/03/20231352 by Sharla Castellon, RN Outcome: Progressing 10/03/2023 [facility] by Sharla Castellon, RN Outcome: Progressing Problem: Health Behavior: Goal: Ability to identify changes in lifestyle to reduce recurrence of condition will improve 10/03/2023 [facility] by Sharla Castellon RN Outcome: Progressing 10/03/20231352 [...] by Sharla Castellon RN Outcome: Progressing 10/03/2023 [facility] by Sharla Castellon RN Outcome: Progressing Problem: [...] Castellon, Sharla B., RN Outcome: Progressing 10/03/2023 [facility] by Sharla Castellon RN Outcome: Progressing Problem: Nutritional: Goal: Nutritional status will be supported 10/03/2023 [facility] by Sharla Castellon RN Outcome: Progressing 10/03/20231352 by Sharla Castellon RN Outcome: Progressing Problem: Fluid Volume: Goal: Maintenance of adequate hydration will improve 10/03/2023 [facility] by Sharla Castellon RN Outcome: Progressing 10/03/2023 [facility] by Sharla Castellon RN Outcome: Progressing Problem: Health Behavior: Goal: Ability to state signs and symptoms to report to health care provider will improve 10/03/2023 [facility] by Sharla Castellon RN Outcome: Progressing 10/03/20231352 by Sharla Castellon RN Outcome: Progressing Problem: Physical Regulation: Goal: Complications related to the disease process, condition or treatment will be avoided or minimized 10/03/2023 [facility] by Sharla Castellon RN Outcome: Progressing 10/03/20231352 by Sharla Castellon RN Outcome: Progressing Goal: Ability to maintain clinical measurements within normal limits will improve 10/03/2023 [facility] by Sharla Castellon RN Outcome: Progressing 10/03/20231352 by Sharla Castellon RN Outcome: Progressing Problem: Sensory: Goal: Ability to identify factors that increase the pain will improve 10/03/2023 [facility] by Sharla Castellon RN Outcome: Progressing 10/03/2023 [facility] by Sharla Castellon RN Outcome: Progressing Goal: Ability to notify healthcare provider of pain before it becomes unmanageable or unbearable will improve 10/03/2023 [facility] by Sharla Castellon RN Outcome: Progressing 10/03/20231352 by Sharla Castellon RN Outcome: Progressing Goal: Pain level will decrease 10/03/20231352 by Sharla Castellon RN Outcome: Progressing 10/03/2023 [facility] by Sharla Castellon RN Outcome: Progressing Problem: Lack of Knowledge: Goal: Understanding of the prescribed diet will improve 10/03/2023 [facility] by Sharla Castellon RN Outcome: Progressing 10/03/2023 [facility] by Sharla Castellon RN Outcome: Progressing Goal: Understanding of the effects of medication on diet and food interactions will improve 10/03/2023 [facility] by Sharla Castellon RN Outcome: Progressing 10/03/2023 [facility] by Sharla Castellon RN Outcome: Progressing Problem: Health Behavior: Goal: Ability to identify and utilize available resources and services will improve 10/03/2023 [facility] by Sharla Castellon RN Outcome: Progressing 10/03/2023 [facility] by Sharla Castellon RN Outcome: Progressing Problem: Nutritional: Goal: Consumption of the prescribed amount of daily calories will improve 10/03/2023 [facility] by Sharla Castellon RN Outcome: Progressing 10/03/2023 [facility] by Sharla Castellon RN Outcome: Progressing Goal: Demonstration of interest in eating will improve 10/03/2023 [facility] by Sharla Castellon RN Outcome: Progressing 10/03/2023 [facility] by Sharla Castellon RN Outcome: Progressing Problem: Physical Regulation: Goal: Achievement of adequate weight for body size and type will improve 10/03/20231352 by Sharla Castellon RN Outcome: Progressing 10/03/2023 [facility] by Sharla Castellon RN Outcome: Progressing Goal: Diagnostic test results will improve 10/03/2023 [facility] by Sharla Castellon RN Outcome: Progressing 10/03/2023 [facility] by Sharla Castellon RN Outcome: Progressing Goals: Clinical Goals for the Shift: Pain management Summary: VSS, free from falls, ambulated to bathroom with 2 assist and walker/gait belt and tolerated well, CIWA done accordingly, pain management, IVfluids, RY BOSS RY BOSS * Plan of Sharla Yates RN - 10/03/2023 1:53 PM CST Problem: [...] Goals for the Shift: Pain management Summary: RY BOSS * Plan of Jovita - Yasir Hernandez Jr., RN - 10/03/2023 1:05 AM QUARRY BOSS Goals: Problem: Lack of Knowledge: Goal: Ability [...] breathing to improve lung expansion and oxygenation. RY BOSS * Plan of Jovita - Sharla Castellon RN - 10/02/2023 6:33 [...] meds given for abdominal pain with relief, RY BOSS RY BOSS * Plan of Care - Angel Watson [...] improved his mobility. Will continue to monitor. RY BOSS * Plan of Care - Aicha Sarah RN - 10/01/2023 6:03 PM CST Goals: Clinical Goals for the Shift: Pain management Summary: Patients pain has been well controlled with pain medication today. Still feels distended and bloated. RY BOSS * ECIN Note - Javy Chung, [facility] [place] - 10/01/2023 10:47 AM CST Patient Information: [...] of this type exist for this encounter. RY BOSS * Plan of Care - Angel Watson [...] on disease process. Will continue to monitor. RY BOSS * Plan of Care - Ericka Najera, [...] BM today. Afeb. No visitors at bedside. RY BOSS * Plan of Care - Ana M [...] Nutritional status will be supported Outcome: Progressing RY BOSS RY BOSS * Plan of Jovita - Emerald Clayton [...] Summary: Plan of care discussed with patient. RY BOSS * Initial Assessments - Sheridan Zhneg RN - 09/29/2023 9:32 AM CST CM Initial Assessment Interview Note Information Obtained From: Patient (09/29/23927) Admission Source: ED Impression: alcohol withdrawal, CP Plan Includes: FCO, speak to peer recovery team, damir. He had been at [facility] for hip fx butwent out on leave for his birthday. He plans to return on DC, if they can accept. Referral pending.If they accept, they should be able to pick him up in their van. Primary Source of Transportation: Does the patient need discharge transport arranged?: Yes Has discharge transport been arranged?: No (09/29/23300) Health Insurance Coverage: [facility] Prescription Coverage: yes Pharmacy: No Pharmacies Listed Primary Care Provider: Major Dotson MD Prior to Admission: Functional Status: Minimal assist with ADLs Primary Caregiver: Facility staff Support System: Parent Home Care Services: No Durable Medical Equipment: Walker (wheeled) Living Arrangements: [facility] Type of Residence: [facility] Does patient wish to return to care [...] a week How often do you attend druze or sikhism services?: Never Do you belong to any clubs or organizations such as druze groups, unions, fraternal or athletic groups, or [...] (09/29/23927) Patient expects to be Discharged to: [facility] Facility, (09/29/23927) Sheridan Zheng RN Case Manager 09/29/2023 9:37 AM RY BOSS * Plan of Care - Desiree Walker RN - 09/29/2023 5:34 AM CST Goals: Clinical Goals for the Shift: VSS, safety Summary: RY BOSS * ED Re-evaluation Note - Miguelito James Jr., MD - 09/28/2023 11:15 PM QUARRY BOSS ED Re-evaluation 11:15 p.m. patient report received [...] plan. Miguelito James Jr., MD 10/10/23 1206 RY BOSS documented in this encounter Plan of Treatment Not on file documented as of this encounter Procedures Procedure Name Priority Date/Time Associated Diagnosis Comments US RUQ IP Routine 10/04/2023 11:16 AM QUARRY BOSS EGFR Routine 10/04/2023 4:43 AM QUARRY BOSS DIFFERENTIAL AUTO Routine 10/04/2023 4:4 3 AM QUARRY BOSS CBC WITH AUTO DIFFERENTIAL Routine 10/04/2023 4:43 AM QUARRY BOSS HEPATIC FUNCTION PANEL Routine 10/04/2023 4:43 AM QUARRY BOSS BASIC METABOLIC PANEL Routine 10/04/2023 4:43 AM QUARRY BOSS XR ANKLE LEFT 3 OR MORE VIEWS IP Routine 10/03/2023 8:14 PM QUARRY BOSS EGFR Routine 10/03/2023 2:29 AM QUARRY BOSS DIFFERENTIAL AUTO Routine 10/03/2023 2:2 9 AM QUARRY BOSS CBC WITH AUTO DIFFERENTIAL Routine 10/03/2023 2:29 AM QUARRY BOSS HEPATIC FUNCTION PANEL Routine 10/03/2023 2:29 AM QUARRY BOSS BASIC METABOLIC PANEL Routine 10/03/2023 2:29 AM QUARRY BOSS EGFR Routine 10/02/2023 5:14 AM QUARRY BOSS DIFFERENTIAL AUTO Routine 10/02/2023 5:1 4 AM QUARRY BOSS CBC WITH AUTO DIFFERENTIAL Routine 10/02/2023 5:14 AM QUARRY BOSS HEPATIC FUNCTION PANEL Routine 10/02/2023 5:14 AM QUARRY BOSS BASIC METABOLIC PANEL Routine 10/02/2023 5:[address] ABDOMEN PELVIS WO CONTRAST IP Routine 10/01/2023 4:23 PM QUARRY BOSS EGFR Routine 10/01/2023 5:20 AM QUARRY BOSS DIFFERENTIAL AUTO Routine 10/01/2023 5: 20 AM QUARRY BOSS CBC WITH AUTO DIFFERENTIAL Routine 10/01/2023 5:20 AM QUARRY BOSS HEPATIC FUNCTION PANEL Routine 10/01/2023 5:20 AM QUARRY BOSS BASIC METABOLIC PANEL Routine 10/01/2023 5:20 AM QUARRY BOSS POCT GLUCOSE DEVICE Routine 09/30/2023 9 :05 PM QUARRY BOSS XR KUB IP Routine 09/30/2023 12:26 PM QUARRY BOSS EGFR Routine 09/30/2023 6:13 AM QUARRY BOSS DIFFERENTIAL AUTO Routine 09/30/2023 6:1 3 AM QUARRY BOSS CBC WITH AUTO DIFFERENTIAL Routine 09/30/2023 6:13 AM QUARRY BOSS PROTIME-INR Routine 09/30/2023 6:13 AM QUARRY BOSS HEPATIC FUNCTION PANEL Routine 09/30/2023 6:13 AM QUARRY BOSS BASIC METABOLIC PANEL Routine 09/30/2023 6:13 AM QUARRY BOSS TRANSTHORACIC ECHO (TTE) COMPLETE W DOPPLER/CF WO CONTRAST Routine 09/29/2023 9:41 AM QUARRY BOSS ECG 12-LEAD Routine 09/29/2023 7:20 AM QUARRY BOSS INFLUENZA A/B, RSV, AND COVID-19 PCR Routine 09/29/2023 6:00 AM QUARRY BOSS EGFR Routine 09/29/2023 5:37 AM QUARRY BOSS CBC WITHOUT DIFFERENTIAL Routine 09/29/2023 5:37 AM QUARRY BOSS PHOSPHORUS Routine 09/29/2023 5:37 AM QUARRY BOSS MAGNESIUM Routine 09/29/2023 5:37 AM QUARRY BOSS LIPASE Routine 09/29/2023 5:37 AM QUARRY BOSS SALICYLATE LEVEL Routine 09/29/2023 5:37 AM QUARRY BOSS COMPREHENSIVE METABOLIC PANEL Routine 09/29/2023 5:37 AM QUARRY BOSS TROPONIN T HIGH-SENSITIVITY 6-HOUR Timed 09/29/2023 12:51 AM QUARRY BOSS XR CHEST 1 VIEW ED 09/28/2023 11:32 PM QUARRY BOSS TROPONIN T HIGH-SENSITIVITY 4-HR Timed 09/28/2023 10:30 PM QUARRY BOSS TROPONIN T HIGH-SENSITIVITY 2-HOUR Timed 09/28/2023 9:02 PM QUARRY BOSS ETHANOL STAT 09/28/2023 9:02 PM QUARRY BOSS ACETAMINOPHEN LEVEL STAT 09/28/2023 9 :02 PM QUARRY BOSS SALICYLATE LEVEL STAT 09/28/2023 9:02 PM QUARRY BOSS URINALYSIS AND REFLEX TO MICROSCOPIC Routine 09/28/2023 7:30 PM QUARRY BOSS DRUGS OF ABUSE SCREEN, URINE WITHOUT CONFIRMATION STAT 09/28/2023 7:29 PM QUARRY BOSS TROPONIN T HIGH-SENSITIVITY SERIES (BASELINE, 2HR, 4HR, 6HR) STAT 09/28/2023 6:43 PM QUARRY BOSS EGFR STAT 09/28/2023 6:43 PM QUARRY BOSS DIFFERENTIAL AUTO STAT 09/28/2023 6:4 3 PM QUARRY BOSS CBC WITH AUTO DIFFERENTIAL STAT 09/28/2023 6:43 PM QUARRY BOSS ETHANOL STAT 09/28/2023 6:43 PM QUARRY BOSS COMPREHENSIVE METABOLIC PANEL STAT 09/28/2023 6:43 PM QUARRY BOSS ECG 12-LEAD STAT 09/28/2023 6:34 PM QUARRY BOSS documented in this encounter Results * US RUQ (10/04/2023 11:16 AM QUARRY BOSS) Anatomical Region Laterality Modality Abdomen N/A Ultrasound 10/04/2023 11:4 7 AM QUARRY BOSS Narrative 10/04/2023 11:51 AM QUARRY BOSS EXAM DESCRIPTION: ?? US RUQ REASON FOR [...] D: ??10/04/2023 11:51 AM T: Report ID: [id number] Reading Location: ??[id number] Procedure Note Naun Bonilla Jr., MD - [...] by Naun Bonilla M.D. T: Report ID: [id number] Reading Location: [place] [address] us Donal Cabrera MD [facility] [place] PROCEDURES Final Result * eGFR (10/04/2023 4:43 AM QUARRY BOSS) eGFR 126 mL/min/1. 73 m2 SAMAN DUMONT [...] last reviewed 2021. Blood 10/04/2023 4:43 AM QUARRY BOSS 10/04/2023 5:37 AM QUARRY BOSS us Donal Cabrera MD LAB BLOOD ORDERAB LES Final Result [facility] [address] [facility] [place] [address] * (ABNORMAL) Differential, auto (10/04/2023 4:43 AM QUARRY BOSS) Neutrophil abs 3.8 1.5 - 6.5 K/cumm [facility] Imm gran abs 0.1 0.0 - 0.1 K/cumm [facility] Lymphocyte abs 1.7 0.8 - 3.3 K/cumm [facility] Monocyte abs 1.3(H) 0.2 - 0.8 K/cumm [facility] Eosinophil abs 0.2 0.0 - 0.5 K/cumm [facility] Basophil abs 0.1 0.0 - 0.1 K/cumm [facility] Neutrophil pct 53.7 % [facility] Comment: Interpretive Data Percent cell count reference ranges are not reported, since discordance with absolute values may lead to misinterpretation of CBC data. Current Interpretive Data was last revised on 2018. Imm gran pct 1.3 % [facility] Comment: Interpretive Data Percent cell count reference ranges are not reported, since discordance with absolute values may lead to misinterpretation of CBC data. Current Interpretive Data was last revised on 2018. Lymphocyte pct 23.5 % [facility] Comment: Interpretive Data Percent cell count reference ranges are not reported, since discordance with absolute values may lead to misinterpretation of CBC data. Current Interpretive Data was last revised on 2018. Monocyte pct 17.6 % [facility] Comment: Interpretive Data Percent cell count reference [...] revised on 2018. Blood 10/04/2023 4:43 AM QUARRY BOSS 10/04/2023 5:37 AM QUARRY BOSS Donal Cabrera MD LAB BLOOD ORDERAB LES Final Result [facility] [address] [facility] Department [place] [address] * (ABNORMAL) CBC with auto differential (10/04/2023 4:43 AM QUARRY BOSS) [facility] WBC 7.1 3.8 - 9.9 K/cumm [...] SAMAN MPV 10.8 9.1 - 12.3 fL [facility] RBC 3.98(L) 4.30 - 5.80 M/cumm [facility] Comment: Interpretive Data A reference range for this assay has not been established for patients with an unknown legal sex. Please refer to the laboratory test catalog for established sex-specific reference intervals. Current interpretive data was last revised on 2023. MCV 95.5 81.3 - 96.4 fL [facility] MCH 32.9 27.1 - 33.3 pg [facility] MCHC 34.5 32.3 - 35.7 g/dL [facility] RDW CV 14.9 11.1 - 14.9 % [facility] RDW SD 48.6(H) 35.7 - 48.1 fL [facility] NRBC abs 0.00 0.00 - 0.01 K/cumm [facility] Blood 10/04/2023 4:43 AM QUARRY BOSS 10/04/2023 5:37 AM QUARRY BOSS Donal Cabrera MD LAB BLOOD ORDERAB LES Final Result Performing Organization Address City/[facility] Co de Phone Number [facility] [address] [facility] [place] [address] * (ABNORMAL) Hepatic function panel (10/04/2023 4:43 AM QUARRY BOSS) [facility] Bilirubin, total 0.3 0.1 - 1.2 mg/dL [facility] Bilirubin, direct <0.2 0.1 - 0.3 mg/dL [facility] Protein, pl 6.2(L) 6.5 - 8.5 g/dL [facility] Albumin 3.4(L) 3.5 - 5.0 g/dL [facility] Alk phos 83 40 - 130 Units/L [facility] ALT 37 7 - 55 Units/L [facility] AST 28 10 - 50 Units/L [facility] Blood 10/04/2023 4:43 AM QUARRY BOSS 10/04/2023 5:37 AM QUARRY BOSS Donal Cabrera MD LAB BLOOD ORDERAB LES Final Result Performing Organization Address City/[facility] Co de Phone Number SAMAN [address] [facility] [place] [address] * (ABNORMAL) Basic metabolic panel (10/04/2023 4:43 AM QUARRY BOSS) Sodium 138 135 - 145 mmol/L [facility] Potassium, pl 3.7 3.3 - 4.9 mmol/L [facility] Chloride 104 97 - 110 mmol/L [facility] CO2 24 22 - 32 mmol/L [facility] Anion gap 10 2 - 15 mmol/L [facility] BUN 10 6 - 25 mg/dL [facility] Creatinine 0.60(L) 0.80 - 1.30 mg/dL [facility] Glucose 92 70 - 199 mg/dL [facility] Comment: Interpretive Data Fasting glucose >/= 126 [...] 2022. Calcium 8.9 8.5 - 10.3 mg/dL [facility] Blood 10/04/2023 4:43 AM QUARRY BOSS 10/04/2023 5:37 AM QUARRY BOSS us Donal Cabrera MD LAB BLOOD ORDERAB LES Final Result Performing Organization Address [facility] Co de Phone Number [facility] [address] [facility] [place] [address] * XR Ankle Left 3 or More Views (10/03/2023 8:14 PM QUARRY BOSS) Anatomical Region Laterality Modality Lower Extremities, Ankle Left Compute d Radiography 10/03/2023 9:15 PM QUARRY BOSS Narrative 10/03/2023 9:15 PM QUARRY BOSS EXAM DESCRIPTION: XR ANKLE LEFT 3 OR [...] D: ??10/03/2023 9:15 PM T: Report ID: [id number] Reading Location: ??[id number] Procedure Note Rolando Jade MD - 10/03/2023 [...] D.O. Kiran Stacy M.D. T: Report ID: [id number] Reading Location: [place] [address] Donal Cabrera MD IMG XR PROCEDURES Final Result * eGFR (10/03/2023 2:29 AM QUARRY BOSS) Pathologist [facility] eGFR 126 mL/min/1. 73 m2 SAMAN DUMONT [...] last reviewed 2021. Blood 10/03/2023 2:29 AM QUARRY BOSS 10/03/2023 2:53 AM QUARRY BOSS us Donal Cabrera MD LAB BLOOD ORDERAB LES Final Result [facility] [address] [facility] Department [place] [address] * (ABNORMAL) Differential, auto (10/03/2023 2:29 AM QUARRY BOSS) Pathologist [facility] Neutrophil abs 3.8 1.5 - 6.5 K/cumm [facility] Imm gran abs 0.1 0.0 - 0.1 K/cumm [facility] Lymphocyte abs 1.5 0.8 - 3.3 K/cumm [facility] Monocyte abs 0.9(H) 0.2 - 0.8 K/cumm [facility] Eosinophil abs 0.2 0.0 - 0.5 K/cumm [facility] Basophil abs 0.1 0.0 - 0.1 K/cumm [facility] Neutrophil pct 58.9 % [facility] Comment: Interpretive Data Percent cell count reference ranges are not reported, since discordance with absolute values may lead to misinterpretation of CBC data. Current Interpretive Data was last revised on 2018. Imm gran pct 0.8 % [facility] Comment: Interpretive Data Percent cell count reference [...] revised on 2018. Basophil pct 0.8 % [facility] Comment: Interpretive Data Percent cell count reference ranges are not reported, since discordance with absolute values may lead to misinterpretation of CBC data. Current Interpretive Data was last revised on 2018. Blood 10/03/2023 2:29 AM QUARRY BOSS 10/03/2023 2:53 AM QUARRY BOSS Donal Cabrera MD LAB BLOOD ORDERAB LES Final Result [facility] [address] [facility] Department of Laboratories [place] [address] * (ABNORMAL) CBC with auto differential (10/03/2023 2:29 AM QUARRY BOSS) WBC 6.5 3.8 - 9.9 K/cumm SAMAN Hgb 12.9(L) 13.0 - 17.5 g/dL SAMAN Comment: Interpretive Data A reference range for this assay has not been established for patients with an unknown legal sex. Please refer to the laboratory test catalog for established sex-specific reference intervals. Current interpretive data was last revised on 2023. Hct 38.3(L) 38.9 - 50.3 % [facility] Comment: Interpretive Data A reference range for this assay has not been established for patients with an unknown legal sex. Please refer to the laboratory test catalog for established sex-specific reference intervals. Current interpretive data was last revised on 2023. Plt 148(L) 150 - 400 K/cumm [facility] MPV 9.9 9.1 - 12.3 fL [facility] RBC 4.02(L) 4.30 - 5.80 M/cumm [facility] Comment: Interpretive Data A reference range for this assay has not been established for patients with an unknown legal sex. Please refer to the laboratory test catalog for established sex-specific reference intervals. Current interpretive data was last revised on 2023. MCV 95.3 81.3 - 96.4 fL [facility] MCH 32.1 27.1 - 33.3 pg [facility] MCHC 33.7 32.3 - 35.7 g/dL [facility] RDW CV 14.6 11.1 - 14.9 % [facility] RDW SD 46.9 35.7 - 48.1 fL [facility] NRBC abs 0.00 0.00 - 0.01 K/cumm [facility] Blood 10/03/2023 2:29 AM QUARRY BOSS 10/03/2023 2:53 AM QUARRY BOSS Donal Cabrera MD LAB BLOOD ORDERAB LES Final Result [place] [id number] [facility] [place] [address] * (ABNORMAL) Hepatic function panel (10/03/2023 2:29 AM QUARRY BOSS) Pathologist [facility] Bilirubin, total 0.4 0.1 - 1.2 mg/dL [facility] Bilirubin, direct <0.2 0.1 - 0.3 mg/dL [facility] Protein, pl 6.3(L) 6.5 - 8.5 g/dL [facility] Albumin 3.3(L) 3.5 - 5.0 g/dL [facility] Alk phos 79 40 - 130 Units/L [facility] ALT 39 7 - 55 Units/L [facility] AST 31 10 - 50 Units/L [facility] Blood 10/03/2023 2:29 AM QUARRY BOSS 10/03/2023 2:53 AM QUARRY BOSS Donal Cabrera MD LAB BLOOD ORDERAB LES Final Result Performing Organization Address City/[facility]/ZIP Co de Phone Number SAMAN [address] [facility] [place] [address] * (ABNORMAL) Basic metabolic panel (10/03/2023 2:29 AM QUARRY BOSS) Pathologist [facility] Sodium 138 135 - 145 mmol/L [facility] Potassium, pl 3.9 3.3 - 4.9 mmol/L [facility] Chloride 103 97 - 110 mmol/L [facility] CO2 26 22 - 32 mmol/L [facility] Anion gap 9 2 - 15 mmol/L [facility] BUN 8 6 - 25 mg/dL [facility] Creatinine 0.60(L) 0.80 - 1.30 mg/dL [facility] Glucose 105 70 - 199 mg/dL [facility] Comment: Interpretive Data Fasting glucose >/= 126 [...] 2022. Calcium 9.1 8.5 - 10.3 mg/dL [facility] Blood 10/03/2023 2:29 AM QUARRY BOSS 10/03/2023 2:53 AM QUARRY BOSS Donal Cabrera MD LAB BLOOD ORDERAB LES Final Result Performing Organization Address City/[facility]/ZIP Co de Phone Number SAMAN [address] [facility] Department [place] [address] * eGFR (10/02/2023 5:14 AM QUARRY BOSS) eGFR 126 mL/min/1. 73 m2 SAMAN Comment: [...] last reviewed 2021. Blood 10/02/2023 5:14 AM QUARRY BOSS 10/02/2023 5:28 AM QUARRY BOSS us Donal Cabrera MD LAB BLOOD ORDERAB LES Final Result SAMAN [address] [facility] [place] [address] * (ABNORMAL) Differential, auto (10/02/2023 5:14 AM QUARRY BOSS) Pathologist [facility] Neutrophil abs 3.9 1.5 - 6.5 K/cumm SAMAN Imm gran abs 0.1 0.0 - 0.1 K/cumm [facility] Lymphocyte abs 1.5 0.8 - 3.3 K/cumm [facility] Monocyte abs 0.9(H) 0.2 - 0.8 K/cumm [facility] Eosinophil abs 0.2 0.0 - 0.5 K/cumm [facility] Basophil abs 0.1 0.0 - 0.1 K/cumm [facility] Neutrophil pct 58.8 % [facility] Comment: Interpretive Data Percent cell count reference ranges are not reported, since discordance with absolute values may lead to misinterpretation of CBC data. Current Interpretive Data was last revised on 2018. Imm gran pct 0.9 % [facility] Comment: Interpretive Data Percent cell count reference ranges are not reported, since discordance with absolute values may lead to misinterpretation of CBC data. Current Interpretive Data was last revised on 2018. Lymphocyte pct 22.5 % [facility] Comment: Interpretive Data Percent cell count reference ranges are not reported, since discordance with absolute values may lead to misinterpretation of CBC data. Current Interpretive Data was last revised on 2018. Monocyte pct 14.0 % [facility] Comment: Interpretive Data Percent cell count reference ranges are not reported, since discordance with absolute values may lead to misinterpretation of CBC data. Current Interpretive Data was last revised on 2018. Eosinophil pct 3.0 % [facility] Comment: Interpretive Data Percent cell count reference ranges are not reported, since discordance with absolute values may lead to misinterpretation of CBC data. Current Interpretive Data was last revised on 2018. Basophil pct 0.8 % [facility] Comment: Interpretive Data Percent cell count reference ranges are not reported, since discordance with absolute values may lead to misinterpretation of CBC data. Current Interpretive Data was last revised on 2018. Blood 10/02/2023 5:14 AM QUARRY BOSS 10/02/2023 5:28 AM QUARRY BOSS us Donal Cabrera MD LAB BLOOD ORDERAB LES Final Result [facility]AN [place] [address] [facility] [place] [address] * (ABNORMAL) CBC with auto differential (10/02/2023 5:14 AM QUARRY BOSS) [facility] WBC 6.6 3.8 - 9.9 K/cumm [facility] Hgb 13.0 13.0 - 17.5 g/dL [facility] Comment: Interpretive Data A reference range for this assay has not been established for patients with an unknown legal sex. Please refer to the laboratory test catalog for established sex-specific reference intervals. Current interpretive data was last revised on 2023. Hct 37.2(L) 38.9 - 50.3 % [facility] Comment: Interpretive Data A reference range for this assay has not been established for patients with an unknown legal sex. Please refer to the laboratory test catalog for established sex-specific reference intervals. Current interpretive data was last revised on 2023. Plt 158 150 - 400 K/cumm [facility] MPV 10.1 9.1 - 12.3 fL [facility] RBC 3.93(L) 4.30 - 5.80 M/cumm [facility] Comment: Interpretive Data A reference range for this assay has not been established for patients with an unknown legal sex. Please refer to the laboratory test catalog for established sex-specific reference intervals. Current interpretive data was last revised on 2023. MCV 94.7 81.3 - 96.4 fL [facility] MCH 33.1 27.1 - 33.3 pg [facility] MCHC 34.9 32.3 - 35.7 g/dL [facility] RDW CV 14.3 11.1 - 14.9 % [facility] RDW SD 45.7 35.7 - 48.1 fL [facility] NRBC abs 0.00 0.00 - 0.01 K/cumm [facility] Blood 10/02/2023 5:14 AM QUARRY BOSS 10/02/2023 5:28 AM QUARRY BOSS us Donal Cabrera MD LAB BLOOD ORDERAB LES Final [facility] [address] [facility] Department [place] [address] * (ABNORMAL) Hepatic function panel (10/02/2023 5:14 AM QUARRY BOSS) [facility] Bilirubin, total 0.5 0.1 - 1.2 mg/dL [facility] Bilirubin, direct <0.2 0.1 - 0.3 mg/dL [facility] Protein, pl 6.3(L) 6.5 - 8.5 g/dL [facility] Albumin 3.3(L) 3.5 - 5.0 g/dL [facility] Alk phos 77 40 - 130 Units/L [facility] ALT 42 7 - 55 Units/L [facility] AST 36 10 - 50 Units/L [facility] Blood 10/02/2023 5:14 AM QUARRY BOSS 10/02/2023 5:28 AM QUARRY BOSS us Donal Cabrera MD LAB BLOOD ORDERAB LES Final Result [facility] [address] [facility] Department [place] [address] * (ABNORMAL) Basic metabolic panel (10/02/2023 5:14 AM QUARRY BOSS) [facility] Sodium 139 135 - 145 mmol/L [facility] Potassium, pl 4.0 3.3 - 4.9 mmol/L [facility] Chloride 105 97 - 110 mmol/L [facility] CO2 26 22 - 32 mmol/L [facility] Anion gap 8 2 - 15 mmol/L [facility] BUN 8 6 - 25 mg/dL [facility] Creatinine 0.60(L) 0.80 - 1.30 mg/dL [facility] Glucose 98 70 - 199 mg/dL [facility] Comment: Interpretive Data Fasting glucose >/= 126 [...] 2022. Calcium 8.7 8.5 - 10.3 mg/dL [facility] Blood 10/02/2023 5:14 AM QUARRY BOSS 10/02/2023 5:28 AM QUARRY BOSS us Donal Cabrera MD LAB BLOOD ORDERAB LES Final Result [facility] [place] [address] [facility] Department [place] [address] * CT Abdomen Pelvis WO Contrast (10/01/2023 4:23 PM QUARRY BOSS) Anatomical Region Laterality Modality Body N/A Computed Tomogra phy 10/01/2023 5:01 PM QUARRY BOSS Narrative 10/01/2023 5:05 PM QUARRY BOSS EXAM DESCRIPTION: ?? CT ABDOMEN PELVIS WO CONTRAST REASON FOR STUDY: ?? Abdominal pain, acute, nonlocalized ?? Abdominal pain. ??38M with hx significant for alcohol dependence, alcohol abuse, and cirrhosis presented with alcohol intoxication and was admitted for alcohol withdrawal treatment. He had been at [facility] after sustaining a hip ?? fracture and was on a 7-day leave when he started drinking alcohol heavily (20-30 beers daily). 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 Pt was started on CIWA protocol. Pt [...] D: ??10/01/2023 5:05 PM T: Report ID: [id number] Reading Location: ??[id number] Procedure Note Chun Hector MD - 10/01/2023 EXAM DESCRIPTION: CT ABDOMEN PELVIS WO CONTRAST REASON FOR STUDY: Abdominal pain, acute, nonlocalized Abdominal pain. 38M with hx significant for alcohol dependence, alcohol abuse, and cirrhosis presented with alcohol intoxication and was admittedfor alcohol withdrawal treatment. He had been at [facility] after sustaining a hip fracture and was on a 7-day leave when he started drinking alcohol heavily (20-30 beers daily). Last drink was one day [employer].Pt was started on CIWA protocol. Pt reported [...] signed by Chun ADAMS T: Report ID: [id number] Reading Location: [id number] us Donal Cabrera MD IMG CT PROCEDURES Final Result * eGFR (10/01/2023 5:20 AM QUARRY BOSS) eGFR 126 mL/min/1. 73 m2 SAMAN DUMONT [...] last reviewed 2021. Blood 10/01/2023 5:20 AM QUARRY BOSS 10/01/2023 6:08 AM QUARRY BOSS us Donal Cabrera MD LAB BLOOD ORDERAB LES Final Result [place] [address] [facility] [place] [address] * Differential, auto (10/01/2023 5:20 AM QUARRY BOSS) Pathologist [facility] Neutrophil abs 3.4 1.5 - 6.5 K/cumm [facility] Imm gran abs 0.0 0.0 - 0.1 K/cumm [facility] Lymphocyte abs 1.4 0.8 - 3.3 K/cumm [facility] Monocyte abs 0.7 0.2 - 0.8 K/cumm [facility] Eosinophil abs 0.2 0.0 - 0.5 K/cumm [facility] Basophil abs 0.1 0.0 - 0.1 K/cumm [facility] Neutrophil pct 58.9 % [facility] Comment: Interpretive Data Percent cell count reference ranges are not reported, since discordance with absolute values may lead to misinterpretation of CBC data. Current Interpretive Data was last revised on 2018. Imm gran pct 0.5 % [facility] Comment: Interpretive Data Percent cell count reference ranges are not reported, since discordance with absolute values may lead to misinterpretation of CBC data. Current Interpretive Data was last revised on 2018. Lymphocyte pct 23.7 % [facility] Comment: Interpretive Data Percent cell count reference ranges are not reported, since discordance with absolute values may lead to misinterpretation of CBC data. Current Interpretive Data was last revised on 2018. Monocyte pct 12.9 % [facility] Comment: Interpretive Data Percent cell count reference ranges are not reported, since discordance with absolute values may lead to misinterpretation of CBC data. Current Interpretive Data was last revised on 2018. Eosinophil pct 3.0 % [facility] Comment: Interpretive Data Percent cell count reference ranges are not reported, since discordance with absolute values may lead to misinterpretation of CBC data. Current Interpretive Data was last revised on 2018. Basophil pct 1.0 % [facility] Comment: Interpretive Data Percent cell count reference ranges are not reported, since discordance with absolute values may lead to misinterpretation of CBC data. Current Interpretive Data was last revised on 2018. Blood 10/01/2023 5:20 AM QUARRY BOSS 10/01/2023 6:08 AM QUARRY BOSS us Donal Cabrera MD LAB BLOOD ORDERAB LES Final Result [facility] [address] [facility] Department [place] [address] * (ABNORMAL) CBC with auto differential (10/01/2023 5:20 AM QUARRY BOSS) [facility] WBC 5.7 3.8 - 9.9 K/cumm [facility] Hgb 12.5(L) 13.0 - 17.5 g/dL [facility] Comment: Interpretive Data A reference range for this assay has not been established for patients with an unknown legal sex. Please refer to the laboratory test catalog for established sex-specific reference intervals. Current interpretive data was last revised on 2023. Hct 35.8(L) 38.9 - 50.3 % [facility] Comment: Interpretive Data A reference range for this assay has not been established for patients with an unknown legal sex. Please refer to the laboratory test catalog for established sex-specific reference intervals. Current interpretive data was last revised on 2023. Plt 153 150 - 400 K/cumm [facility] MPV 10.5 9.1 - 12.3 fL [facility] RBC 3.83(L) 4.30 - 5.80 M/cumm [facility] Comment: Interpretive Data A reference range for this assay has not been established for patients with an unknown legal sex. Please refer to the laboratory test catalog for established sex-specific reference intervals. Current interpretive data was last revised on 2023. MCV 93.5 81.3 - 96.4 fL [facility] MCH 32.6 27.1 - 33.3 pg [facility] MCHC 34.9 32.3 - 35.7 g/dL [facility] RDW CV 13.7 11.1 - 14.9 % [facility] RDW SD 44.2 35.7 - 48.1 fL [facility] NRBC abs 0.00 0.00 - 0.01 K/cumm [facility] Blood 10/01/2023 5:20 AM QUARRY BOSS 10/01/2023 6:08 AM QUARRY BOSS Donal Cabrera MD LAB BLOOD ORDERAB LES Final Result Performing Organization Address [facility] de Phone Number SAMAN [address] [place] [address] * (ABNORMAL) Hepatic function panel (10/01/2023 5:20 AM QUARRY BOSS) Pathologist [facility] Bilirubin, total 0.6 0.1 - 1.2 mg/dL [facility] Bilirubin, direct <0.2 0.1 - 0.3 mg/dL [facility] Protein, pl 6.3(L) 6.5 - 8.5 g/dL [facility] Albumin 3.2(L) 3.5 - 5.0 g/dL [facility] Alk phos 78 40 - 130 Units/L [facility] ALT 41 7 - 55 Units/L [facility] AST 39 10 - 50 Units/L [facility] Blood 10/01/2023 5:20 AM QUARRY BOSS 10/01/2023 6:08 AM QUARRY BOSS Donal Cabrera MD LAB BLOOD ORDERAB LES Final Result Performing Organization Address City/[facility] Co de Phone Number SAMAN [address] [place] [address] * (ABNORMAL) Basic metabolic panel (10/01/2023 5:20 AM QUARRY BOSS) Pathologist [facility] Sodium 140 135 - 145 mmol/L [facility] Potassium, pl 3.7 3.3 - 4.9 mmol/L [facility] Chloride 105 97 - 110 mmol/L [facility] CO2 24 22 - 32 mmol/L [facility] Anion gap 11 2 - 15 mmol/L [facility] BUN 9 6 - 25 mg/dL [facility] Creatinine 0.60(L) 0.80 - 1.30 mg/dL [facility] Glucose 97 70 - 199 mg/dL [facility] Comment: Interpretive Data Fasting glucose >/= 126 [...] 2022. Calcium 8.6 8.5 - 10.3 mg/dL [facility] Blood 10/01/2023 5:20 AM QUARRY BOSS 10/01/2023 6:08 AM QUARRY BOSS Donal Cabrera MD LAB BLOOD ORDERAB LES Final Result Performing Organization Address [facility] Co de Phone Number [address] [place] [address] * POCT glucose (09/30/2023 9:05 PM QUARRY BOSS) [facility] Glucose, POC 119 70 - 199 mg/dL [facility] Glucose comment 1 Use This Result [facility] Glucose comment 2 RN/MD Notified [facility] Blood 09/30/2023 9:05 PM QUARRY BOSS 09/30/2023 9:05 PM QUARRY BOSS Donal Cabrera MD LAB POCT ORDERABL ES - DEVICE Final Result Performing Organization Address [facility] Co de Phone Number [address] [place] [address] * XR Kub (09/30/2023 12:26 PM QUARRY BOSS) Anatomical Region Laterality Modality Body, Abdomen N/A Computed Radiogr aphy 09/30/2023 1:04 PM QUARRY BOSS Narrative 09/30/2023 1:06 PM QUARRY BOSS EXAM DESCRIPTION: ?? XR KUB REASON FOR [...] D: ??09/30/2023 1:06 PM T: Report ID: [id number] Reading Location: ??[id number] Procedure Note Chuckie Cornelius DO - 09/30/2023 [...] Chuckie Cornelius D.O. AP T: Report ID: [id number] Reading Location: [place] [address] Donal Cabrera MD IMG XR PROCEDURES Final Result * eGFR (09/30/2023 6:13 AM QUARRY BOSS) eGFR 133 mL/min/1. 73 m2 SAMAN DUMONT [...] last reviewed 2021. Blood 09/30/2023 6:13 AM QUARRY BOSS 09/30/2023 6:25 AM QUARRY BOSS us Donal Cabrera MD LAB BLOOD ORDERAB LES Final Result [facility] [address] [facility] [place] [address] * Differential, auto (09/30/2023 6:13 AM QUARRY BOSS) Neutrophil abs 4.6 1.5 - 6.5 K/cumm [facility] Imm gran abs 0.0 0.0 - 0.1 K/cumm [facility] Lymphocyte abs 1.2 0.8 - 3.3 K/cumm [facility] Monocyte abs 0.8 0.2 - 0.8 K/cumm [facility] Eosinophil abs 0.2 0.0 - 0.5 K/cumm [facility] Basophil abs 0.1 0.0 - 0.1 K/cumm [facility] Neutrophil pct 67.4 % [facility] Comment: Interpretive Data Percent cell count reference ranges are not reported, since discordance with absolute values may lead to misinterpretation of CBC data. Current Interpretive Data was last revised on 2018. Imm gran pct 0.4 % [facility] Comment: Interpretive Data Percent cell count reference ranges are not reported, since discordance with absolute values may lead to misinterpretation of CBC data. Current Interpretive Data was last revised on 2018. Lymphocyte pct 17.7 % [facility] Comment: Interpretive Data Percent cell count reference ranges are not reported, since discordance with absolute values may lead to misinterpretation of CBC data. Current Interpretive Data was last revised on 2018. Monocyte pct 11.3 % [facility] Comment: Interpretive Data Percent cell count reference ranges are not reported, since discordance with absolute values may lead to misinterpretation of CBC data. Current Interpretive Data was last revised on 2018. Eosinophil pct 2.5 % [facility] Comment: Interpretive Data Percent cell count reference ranges are not reported, since discordance with absolute values may lead to misinterpretation of CBC data. Current Interpretive Data was last revised on 2018. Basophil pct 0.7 % [facility] Comment: Interpretive Data Percent cell count reference ranges are not reported, since discordance with absolute values may lead to misinterpretation of CBC data. Current Interpretive Data was last revised on 2018. Blood 09/30/2023 6:13 AM QUARRY BOSS 09/30/2023 6:25 AM QUARRY BOSS us Donal Cabrera MD LAB BLOOD ORDERAB LES Final Result [facility] [address] [facility] Department [place] [address] * (ABNORMAL) CBC with auto differential (09/30/2023 6:13 AM QUARRY BOSS) [facility] WBC 6.8 3.8 - 9.9 K/cumm [facility] Hgb 12.2(L) 13.0 - 17.5 g/dL SAMAN [...] 2023. Plt 143(L) 150 - 400 K/cumm [facility] MPV 9.7 9.1 - 12.3 fL [facility] RBC 3.73(L) 4.30 - 5.80 M/cumm [facility] Comment: Interpretive Data A reference range for this assay has not been established for patients with an unknown legal sex. Please refer to the laboratory test catalog for established sex-specific reference intervals. Current interpretive data was last revised on 2023. MCV 93.6 81.3 - 96.4 fL [facility] MCH 32.7 27.1 - 33.3 pg [facility] MCHC 35.0 32.3 - 35.7 g/dL [facility] RDW CV 13.1 11.1 - 14.9 % [facility] RDW SD 43.8 35.7 - 48.1 fL [facility] NRBC abs 0.00 0.00 - 0.01 K/cumm [facility] Blood 09/30/2023 6:13 AM QUARRY BOSS 09/30/2023 6:25 AM QUARRY BOSS Donal Cabrera MD LAB BLOOD ORDERAB LES Final Result [facility] [address] [facility] Department of Laboratories [place], [place] [id number] * (ABNORMAL) Hepatic function panel (09/30/2023 6:13 AM QUARRY BOSS) Pathologist [facility] Bilirubin, total 1.3(H) 0.1 - 1.2 mg/dL [facility] Bilirubin, direct 0.4(H) 0.1 - 0.3 mg/dL [facility] Protein, pl 5.9(L) 6.5 - 8.5 g/dL [facility] Albumin 3.3(L) 3.5 - 5.0 g/dL [facility] Alk phos 74 40 - 130 Units/L [facility] ALT 42 7 - 55 Units/L [facility] AST 47 10 - 50 Units/L [facility] Blood 09/30/2023 6:13 AM QUARRY BOSS 09/30/2023 6:25 AM QUARRY BOSS Donal Cabrera MD LAB BLOOD ORDERAB LES Final Result [facility] [address] [facility] [place] [address] * (ABNORMAL) Basic metabolic panel (09/30/2023 6:13 AM QUARRY BOSS) [facility] Sodium 138 135 - 145 mmol/L [facility] Potassium, pl 3.3 3.3 - 4.9 mmol/L [facility] Chloride 103 97 - 110 mmol/L [facility] CO2 23 22 - 32 mmol/L [facility] Anion gap 12 2 - 15 mmol/L [facility] BUN 6 6 - 25 mg/dL [facility] Creatinine 0.50(L) 0.80 - 1.30 mg/dL [facility] Glucose 74 70 - 199 mg/dL [facility] Comment: Interpretive Data Fasting glucose >/= 126 [...] 2022. Calcium 8.5 8.5 - 10.3 mg/dL [facility] Blood 09/30/2023 6:13 AM QUARRY BOSS 09/30/2023 6:25 AM QUARRY BOSS Donal Cabrera MD LAB BLOOD ORDERAB LES Final Result [facility] [address] [facility] [place] [address] * Protime-INR (09/30/2023 6:13 AM QUARRY BOSS) Pathologist [facility] PT 14.6 12.0 - 14.6 sec [facility]AN INR 1.1 0.9 - 1.2 [facility] Comment: Ref Range High Interpretive data Oral anticoagulant therapeutic ranges: Venous thromboembolism prophylaxis or treatment: 2.0-3.0 CARDIOLOGY Standard range: 2.0-3.0 High-intensity range: 2.5-3.5 Refer to indication-specific guidelines for appropriate target ranges for prosthetic heart valve replacement. Current interpretive data was last revised on 2019. Blood 09/30/2023 6:13 AM QUARRY BOSS 09/30/2023 6:25 AM QUARRY BOSS us Donal Cabrera MD LAB BLOOD ORDERAB LES Final Result [facility] [address] [facility] Department [place] [address] * TRANSTHORACIC ECHO (TTE) COMPLETE W DOPPLER/CF WO CONTRAST (09/29/2023 9:41 AM QUARRY BOSS) Anatomical Region Laterality Modality Ultrasound 09/29/2023 9:41 AM QUARRY BOSS Narrative 09/29/2023 5:41 PM QUARRY BOSS ? Adult Echocardiogram + ----- + :Name: LOVE DIAZ ??Study Date: 09/29/2023 ?Status: MHB ?: : ?Patient Location: [facility] CTR^[id number]^MHHeight: 67 in ?: : ?Weight: 193 lbBP: [...] Date: 09/29/2023Status: MHB : : Patient Location: [address]^[id number]^MHHeight: 67 in : : : 193 lbBP: [...] * ECG 12 lead (09/29/2023 7:20 AM QUARRY BOSS) Ventricular Rate EKG/Min 99 BPM [facility] Atrial Rate 99 BPM [facility] WV-Interval (MSEC) 108 ms [facility] QRS-Interval (MSEC) 90 ms [facility] QT-Interval (MSEC) 362 ms [facility] QTc 464 ms [facility] P [place] 38 degrees [facility] R [place] -4 degrees [facility] T [place] 18 degrees [facility] Diagnosis Sinus rhythm with short WV possible inferior infarct Abnormal ECG When compared with ECG of 28-SEP-2023 18:34, Premature ventricular complexes are no longer Present Inferior infarct is now Present Confirmed by LEEANN GUZMAN M.D. ([id number]) on 09/30/2023 1:02:29 AM [facility] 09/29/2023 7:20 AM QUARRY BOSS 09/30/2023 1:02 AM QUARRY BOSS Manuelito Hannah MD ECG ORDERABLES Final Result [facility] * Influenza A/B, RSV, and COVID-19 PCR Nasopharyngeal (09/29/2023 6:00 AM QUARRY BOSS) Pathologist [facility] COVID-19 RNA Negative Negative [facility] Influenza A RNA Negative Negative [facility] Influenza B RNA Negative Negative [facility] RSV RNA Negative Negative [facility] Comment: Interpretive data: This test is performed using the [employer] Xpert Xpress CoV-2/Flu/RSV plus assay. This is [...] revised 2021. Nasopharyngeal 09/29/2023 6: 00 AM QUARRY BOSS 09/29/2023 6:20 AM QUARRY BOSS Narrative [facility] - 09/29/2023 7:43 AM QUARRY BOSS Is the Patient experiencing symptoms consistent with COVID?->Yes Date of Symptom Onset->09/29/23 Reason for testing?->Symptomatic Result [facility] Manuelito Hannah MD LAB MICROBIOLOGY - GE NERAL ORDERABLES Final Result [facility] [address] [facility] Department [place] [address] * eGFR (09/29/2023 5:37 AM QUARRY BOSS) eGFR 126 mL/min/1. 73 m2 [facility] Comment: [...] last reviewed 2021. Blood 09/29/2023 5:37 AM QUARRY BOSS 09/29/2023 6:27 AM QUARRY BOSS us Manuelito Hannah MD LAB BLOOD ORDERABLES Final Result [facility] [address] [facility] Department [place] [address] * Lipase (09/29/2023 5:37 AM QUARRY BOSS) Pathologist [facility] Lipase 64 10 - 99 Units/L [facility] Blood 09/29/2023 5:37 AM QUARRY BOSS 09/29/2023 6:27 AM QUARRY BOSS us Manuelito Hannah MD LAB BLOOD ORDERABLES Final Result Performing Organization Address City/[facility] Co de Phone Number SAMAN [address] [address] * Salicylate level (09/29/2023 5:37 AM QUARRY BOSS) [facility] Salicylate <1.0 <=1.0 mg/dL [facility] Comment: Interpretive Data Toxic: 30 mg/dL or greater. Current interpretive data was last revised 2023. Blood 09/29/2023 5:37 AM QUARRY BOSS 09/29/2023 6:27 AM [facility]ARR[facility] BOSS Manuelito Hannah MD LAB BLOOD ORDERABLES Final Result Performing Organization Address [facility] de Phone Number SAMAN [address] [address] * (ABNORMAL) CBC without differential (09/29/2023 5:37 AM QUARRY BOSS) [facility] WBC 8.4 3.8 - 9.9 K/cumm [facility] Hgb 12.7(L) 13.0 - 17.5 g/dL [facility] Comment: Interpretive Data A reference range for this assay has not been established for patients with an unknown legal sex. Please refer to the laboratory test catalog for established sex-specific reference intervals. Current interpretive data was last revised on 2023. Hct 36.2(L) 38.9 - 50.3 % [facility] Comment: Interpretive Data A reference range for this assay has not been established for patients with an unknown legal sex. Please refer to the laboratory test catalog for established sex-specific reference intervals. Current interpretive data was last revised on 2023. Plt 134(L) 150 - 400 K/cumm [facility] MPV 11.4 9.1 - 12.3 fL [facility] RBC 3.97(L) 4.30 - 5.80 M/cumm [facility] Comment: Interpretive Data A reference range for this assay has not been established for patients with an unknown legal sex. Please refer to the laboratory test catalog for established sex-specific reference intervals. Current interpretive data was last revised on 2023. MCV 91.2 81.3 - 96.4 fL [facility] MCH 32.0 27.1 - 33.3 pg [facility] MCHC 35.1 32.3 - 35.7 g/dL [facility] RDW CV 13.1 11.1 - 14.9 % [facility] RDW SD 42.7 35.7 - 48.1 fL [facility] NRBC abs 0.00 0.00 - 0.01 K/cumm [facility] Blood 09/29/2023 5:37 AM QUARR[facility] BOSS 09/29/2023 6:27 AM [facility] BOSS Manuelito Hannah MD LAB BLOOD ORDERABLES Final Result Performing Organization Address [facility] Co de Phone Number [address] [place] [address] * Phosphorus (09/29/2023 5:37 AM QUARRY BOSS) Phosphorus, pl 3.2 2.3 - 4.5 mg/dL [facility] Blood 09/29/2023 5:37 AM QUARRY BOSS 09/29/2023 6:27 AM QUARRY BOSS Manuelito Hannah MD LAB BLOOD ORDERABLES Final Result Performing Organization Address [facility] Co de Phone Number [address] [place] [address] * Magnesium (09/29/2023 5:37 AM QUARRY BOSS) Magnesium 1.9 1.4 - 2.5 mg/dL [facility] Blood 09/29/2023 5:37 AM QUARRY BOSS 09/29/2023 6:27 AM QUARRY BOSS Manuelito Hannah MD LAB BLOOD ORDERABLES Final Result Performing Organization Address City/[facility] Co de Phone Number [address] [place] [address] * (ABNORMAL) Comprehensive metabolic panel (09/29/2023 5:37 AM QUARRY BOSS) Sodium 134(L) 135 - 145 mmol/L [facility] Potassium, pl 3.4 3.3 - 4.9 mmol/L [facility] Chloride 99 97 - 110 mmol/L [facility] CO2 22 22 - 32 mmol/L [facility] Anion gap 13 2 - 15 mmol/L [facility] BUN 10 6 - 25 mg/dL [facility] Creatinine 0.60(L) 0.80 - 1.30 mg/dL [facility] Glucose 75 70 - 199 mg/dL [facility] Comment: Interpretive Data Fasting glucose >/= 126 [...] 2022. Calcium 8.2(L) 8.5 - 10.3 mg/dL [facility] Bilirubin, total 1.8(H) 0.1 - 1.2 mg/dL [facility] Protein, pl 7.0 6.5 - 8.5 g/dL [facility] Albumin 3.7 3.5 - 5.0 g/dL [facility] Alk phos 80 40 - 130 Units/L [facility] ALT 54 7 - 55 Units/L [facility] AST 69(H) 10 - 50 Units/L [facility] Blood 09/29/2023 5:37 AM QUARRY BOSS 09/29/2023 6:27 AM QUARRY BOSS us Manuelito Hannah MD LAB BLOOD ORDERABLES Final Result [facility] [address] [facility] Department [place] [address] * Troponin T high-sensitivity 6-hour (09/29/2023 12:51 AM QUARRY BOSS) Trop T hs 8 <=22 ng/L [facility] Comment: Interpretive Data For further hscTnT resources including the diagnostic algorithm and an aid in interpretation, copy and paste this link: https://nrl.testcatalog.org/show/hsTrop Current Interpretive Data last revised 2020. Trop T hs delta 0 ng/L [facility] Trop T hs interp Insignificant [facility] Blood 09/29/2023 12:5 1 AM QUARRY BOSS 09/29/2023 12:54 AM QUARRY BOSS us Yuko Naik DO LAB BLOOD ORDERABLES Final Resu lt [facility] [address] [facility] Department [place] [address] * XR Chest 1 Vw Portable (09/28/2023 11:32 PM QUARRY BOSS) Anatomical Region Laterality Modality Body, Chest N/A Computed Radiogr aphy 09/28/2023 11:3 5 PM QUARRY BOSS Narrative 09/28/2023 11:37 PM QUARRY BOSS EXAM DESCRIPTION: XR CHEST 1 VIEW REASON [...] D: ??09/28/2023 11:37 PM T: Report ID: [id number] Reading Location: ??[id number] Procedure Note Rolando Jade MD - 09/28/2023 [...] Rolando Jade M.D., Sid.O. T: Report ID: [id number] Reading Location: [place] [address] Mansoor Valdes MD IMG XR PROCEDURES Fin al Result * Troponin T high-sensitivity 4-hour (09/28/2023 10:30 PM QUARRY BOSS) Pathologist [facility] Trop T hs 8 <=22 ng/L [facility] Comment: Interpretive Data For further hscTnT resources including the diagnostic algorithm and an aid in interpretation, copy and paste this link: https://nrl.testcatalog.org/show/hsTrop Current Interpretive Data last revised 2020. Trop T hs delta 0 ng/L [facility] Trop T hs interp Insignificant [facility] Blood 09/28/2023 10:3 0 PM QUARRY BOSS 09/28/2023 10:32 PM QUARRY BOSS Yuko Naik DO LAB BLOOD ORDERABLES Final Resu lt [facility] [address] [facility] Department [place] [address] * (ABNORMAL) Salicylate level (09/28/2023 9:02 PM QUARRY BOSS) Salicylate 1.3(H) <=1.0 mg/dL [facility] Comment: Interpretive Data Toxic: 30 mg/dL or greater. Current interpretive data was last revised 2023. Blood 09/28/2023 9:02 PM QUARRY BOSS 09/28/2023 9:07 PM QUARRY BOSS us Mansoor Valdes MD LAB BLOOD ORDERABLES Final Result Performing Organization Address [facility] de Phone Number [address] [address] * (ABNORMAL) Ethanol (09/28/2023 9:02 PM QUARRY BOSS) Ethanol 40(H) <=10 mg/dL [facility] Comment: Interpretive Data Legal limit of intoxication > or = 80 mg/dL Levels > or = 400 mg/dL are potentially TOXIC. Current interpretive data was last revised on 2018. Blood 09/28/2023 9:02 PM QUARRY BOSS 09/28/2023 9:07 PM QUARRY BOSS us Mansoor Valdes MD LAB BLOOD ORDERABLES Final Result Performing Organization Address [facility] de Phone Number [address] [address] * Acetaminophen level (09/28/2023 9:02 PM QUARRY BOSS) Acetaminophen <5 <=5 mcg/mL [facility] Comment: Interpretive Data Significant hepatic injury may occur and treatment with n-acetyl cysteine is generally recommended if the acetaminophen level exceeds: 150 mcg/mL at 4 hours after ingestion ??75 mcg/mL at 8 hours after ingestion ??38 mcg/mL at 12 hours after ingestion ??19 mcg/mL at 16 hours after ingestion Consult toxicology or poison control ([phone]) for unknown ingestion time. Current interpretive data was last revised 2023. Blood 09/28/2023 9:02 PM QUARRY BOSS 09/28/2023 9:07 PM QUARRY BOSS Mansoor Valdes MD LAB BLOOD ORDERABLES Final Result Performing Organization Address [facility] Co de Phone Number SAMAN [address] [address] * Troponin T high-sensitivity 2-hour (09/28/2023 9:02 PM QUARRY BOSS) Trop T hs 10 <=22 ng/L [facility] Comment: Interpretive Data For further hscTnT resources including the diagnostic algorithm and an aid in interpretation, copy and paste this link: https://nrl.testcatalog.org/show/hsTrop Current Interpretive Data last revised 2020. Trop T hs delta 2 ng/L [facility] Trop T hs interp Insignificant [facility] Blood 09/28/2023 9:02 PM QUARRY BOSS 09/28/2023 9:07 PM QUARRY BOSS Yuko Naik DO LAB BLOOD ORDERABLES Final Resu lt Performing Organization Address [facility] Co de Phone Number [facility]AN [address] [address] * (ABNORMAL) Urinalysis reflex to microscopic (09/28/2023 7:30 PM QUARRY BOSS) Color, ur Kailyn Yellow [facility] Clarity, ur Cloudy(A) Clear [facility] Specific gravity, ur 1.020 1.003 - 1.030 [facility] pH, urine 5.0 [facility] Comment: Interpretive Data ? Urine pH is affected by diet, medications, systemic acid-base disturbances, and renal tubular function. ??pH may affect urinary stone formation. ??For example, urine pH below 6.0 may help reduce the tendency for calcium phosphate stones and pH greater than 6.0 may reduce the tendency for uric acid stone formation. Source: [facility] [employer] Current Interpretive Data was last revised on 2017 Protein, ur ql Negative Negative [facility] Glucose, ur ql Negative Negative [facility] Ketones, ur 1+(A) Negative [facility] Bilirubin, ur Negative Negative [facility] Blood, ur Negative Negative [facility] Urobilinogen, ur 2.0(A) <2.0 mg/dL [facility] Nitrite, ur Negative Negative [facility] Leukocyte esterase, ur Negative Negative [facility] UA reflex comment Reflex conditions for microscopic UA not met. [facility] Urine 09/28/2023 7:30 PM QUARRY BOSS 09/28/2023 7:33 PM QUARRY BOSS Yuko Naik DO LAB URINE ORDERABLES Final Resu lt [facility] [address] [facility] Department of Laboratories [place], [place] [id number] * Drugs of Abuse Screen, Urine without Confirmation (09/28/2023 7:29 PM QUARRY BOSS) Amphetamine, ur Not Detected CutOff 500ng/mL [facility] Comment: Interpretive Data - Amphetamines: ??Samples containing greater than 500 ng/mL d-methamphetamine ??or other cross-reacting amphetamine compounds are reported as positive. ??Amphetamine immunoassays are subject to significant false positive rates due to cross-reactivity of non-amphetamine drugs. Confirmatory testing required for definitive results. Current Interpretive Data was last reviewed 2023. Barbiturates, ur Not Detected CutOff 200ng/mL [facility] Comment: Interpretive Data - Barbiturates: ??Samples containing greater than 200 ng/mL secobarbital or other cross-reacting barbiturate compounds are reported as positive. ??False positive and false negative results are possible. Confirmatory testing required for definitive results. Current Interpretive Data was last reviewed 2023. Benzodiazepines, ur Not Detected CutOff 100ng/mL [facility] Comment: Interpretive Data - Benzodiazepines: ??Samples containing greater than 100 ng/mL nordiazepam or other cross-reacting compounds are reported as positive. False positive and false negative results are possible. Confirmatory testing required for definitive results. Current Interpretive Data was last reviewed 2023. Cannabinoids, ur Not Detected CutOff 50 ng/mL [facility] Comment: Interpretive Data - Cannabinoids: ??Samples containing greater than 50 ng/mL delta-9 THC -COOH or other cross-reacting compounds are reported as positive. ??False positive and false negative results are possible. ??Confirmatory testing required for definitive results. Current Interpretive Data was last reviewed 2023. Cocaine, ur Not Detected CutOff 150ng/mL [facility] Comment: Interpretive Data - Cocaine: ??Samples containing greater than 150 ng/mL benzoylecgonine or other cross-reacting compounds are reported as positive. False positive and false negative results are possible. Confirmatory testing required for definitive results. Current Interpretive Data was last reviewed 2023. Fentanyl, Ur Not Detected Cutoff 1 ng/mL [facility] Comment: Interpretive Data - Fentanyl: ??Samples containing greater than 1 ng/mL fentanyl or other cross-reacting fentanyl compounds are reported as positive. ??False positive and false negative results are possible. Confirmatory testing required for definitive results. Current Interpretive Data was last reviewed 2023. Methadone, ur Not Detected CutOff 300ng/mL [facility] Comment: Interpretive Data - Methadone: ??Samples containing greater than 300 ng/mL d,l-methadone or other cross-reacting compounds are reported as positive. ??False positive and false negative results are possible. Confirmatory testing required for definitive results. Current Interpretive Data was last reviewed 2023. Opiates, ur Not Detected CutOff 300ng/mL [facility] Comment: Interpretive Data - Opiates: ??Samples containing greater than 300 ng/mL morphine or other cross-reacting compounds are reported as positive. ??False positive and false negative results are possible. Confirmatory testing required for definitive results. Current Interpretive Data was last reviewed 2023. Oxycodone, ur Not Detected CutOff 100ng/mL [facility] Comment: Interpretive Data - Oxycodone: ??Samples containing greater than 100 ng/mL oxycodone or other cross-reacting compounds are reported as ??positive. ??False positive and false negative results are possible. Confirmatory testing required for definitive results. Current Interpretive Data was last reviewed 2023. Phencyclidine, ur Not Detected CutOff 25 ng/mL [facility] Comment: Interpretive Data - Phencyclidine: ??Samples containing [...] revised on 2018. Urine 09/28/2023 7:29 PM QUARRY BOSS 09/28/2023 7:33 PM QUARRY BOSS Narrative [facility] - 09/28/2023 8:06 PM QUARRY BOSS Drug of Abuse screening is performed by immunoassay for medical purposes only. ??This is not to be used for Pain Management purposes. us Yuko Naik DO LAB URINE ORDERABLES Final Resu lt [facility] [address] [facility] [place] [address] * eGFR (09/28/2023 6:43 PM QUARRY BOSS) eGFR 120 mL/min/1. 73 m2 [facility] Comment: [...] last reviewed 2021. Blood 09/28/2023 6:43 PM QUARRY BOSS 09/28/2023 6:47 PM QUARRY BOSS Yuko Naik DO LAB BLOOD ORDERABLES Final Resu lt [facility] [address] [facility] [place] [address] * (ABNORMAL) Differential, auto (09/28/2023 6:43 PM QUARRY BOSS) Neutrophil abs 8.3(H) 1.7 - 6.5 K/cumm [facility] Imm gran abs 0.0 0.0 - 0.1 K/cumm [facility] Lymphocyte abs 1.9 0.8 - 3.3 K/cumm [facility] Monocyte abs 1.3(H) 0.2 - 0.8 K/cumm [facility] Eosinophil abs 0.0 0.0 - 0.5 K/cumm [facility] Basophil abs 0.1 0.0 - 0.1 K/cumm [facility] Neutrophil pct 71.6 % [facility] Comment: Interpretive Data Percent cell count reference ranges are not reported, since discordance with absolute values may lead to misinterpretation of CBC data. Current Interpretive Data was last revised on 2018. Imm gran pct 0.3 % [facility] Comment: Interpretive Data Percent cell count reference ranges are not reported, since discordance with absolute values may lead to misinterpretation of CBC data. Current Interpretive Data was last revised on 2018. Lymphocyte pct 15.9 % [facility] Comment: Interpretive Data Percent cell count reference ranges are not reported, since discordance with absolute values may lead to misinterpretation of CBC data. Current Interpretive Data was last revised on 2018. Monocyte pct 11.3 % [facility] Comment: Interpretive Data Percent cell count reference [...] revised on 2018. Blood 09/28/2023 6:43 PM QUARRY BOSS 09/28/2023 6:47 PM QUARRY BOSS Yuko Naik LAB BLOOD ORDERABLES Final Resu lt Performing Organization Address [facility] de Phone Number [address] [place] [address] * (ABNORMAL) Ethanol (09/28/2023 6:43 PM QUARRY BOSS) Ethanol 94(H) <=10 mg/dL [facility] Comment: Interpretive Data Legal limit of intoxication > or = 80 mg/dL Levels > or = 400 mg/dL are potentially TOXIC. Current interpretive data was last revised on 2018. Blood 09/28/2023 6:43 PM QUARRY BOSS 09/28/2023 6:47 PM QUARRY BOSS Yuko Naik LAB BLOOD ORDERABLES Final Resu lt Performing Organization Address [facility] Co de Phone Number [address] [place] [address] * Troponin T high-sensitivity series (baseline, 2hr, 4hr, 6hr) (09/28/2023 6:43 PM QUARRY BOSS) Trop T hs 8 <=22 ng/L [facility] Comment: Interpretive Data For further hscTnT resources including the diagnostic algorithm and an aid in interpretation, copy and paste this link: https://nrl.testcatalog.org/show/hsTrop Current Interpretive Data last revised 2020. Blood 09/28/2023 6:43 PM QUARRY BOSS 09/28/2023 6:47 PM QUARRY BOSS Yuko Naik DO LAB BLOOD ORDERABLES Final Resu lt [facility] [address] [facility] [place] [address] * (ABNORMAL) Comprehensive metabolic panel (09/28/2023 6:43 PM QUARRY BOSS) Sodium 133(L) 135 - 145 mmol/L [facility] Potassium, pl 3.5 3.3 - 4.9 mmol/L [facility] Chloride 91(L) 97 - 110 mmol/L [facility] CO2 20(L) 22 - 32 mmol/L [facility] Anion gap 22(H) 2 - 15 mmol/L [facility] BUN 6 6 - 25 mg/dL [facility] Creatinine 0.70(L) 0.80 - 1.30 mg/dL [facility] Glucose 93 70 - 199 mg/dL [facility] Comment: Interpretive Data Fasting glucose >/= 126 [...] 2022. Calcium 8.9 8.5 - 10.3 mg/dL [facility] Bilirubin, total 1.3(H) 0.1 - 1.2 mg/dL [facility] Protein, pl 8.2 6.5 - 8.5 g/dL [facility] Albumin 4.2 3.5 - 5.0 g/dL [facility] Alk phos 96 40 - 130 Units/L [facility] ALT 71(H) 7 - 55 Units/L [facility] AST 98(H) 10 - 50 Units/L [facility] Blood 09/28/2023 6:43 PM QUARRY BOSS 09/28/2023 6:47 PM QUARRY BOSS Yuko Naik DO LAB BLOOD ORDERABLES Final [facility]u lt [facility] [address] [facility] [place] [address] * (ABNORMAL) CBC with auto differential (09/28/2023 6:43 PM QUARRY BOSS) Pathologist [facility] WBC 11.6(H) 3.8 - 9.9 K/cumm [facility] Hgb 15.5 13.0 - 17.5 g/dL [facility] Comment: Interpretive Data A reference range for this assay has not been established for patients with an unknown legal sex. Please refer to the laboratory test catalog for established sex-specific reference intervals. Current interpretive data was last revised on 2023. Hct 42.4 38.9 - 50.3 % [facility] Comment: Interpretive Data A reference range for this assay has not been established for patients with an unknown legal sex. Please refer to the laboratory test catalog for established sex-specific reference intervals. Current interpretive data was last revised on 2023. Plt 212 150 - 400 K/cumm [facility] MPV 9.4 9.1 - 12.3 fL [facility] RBC 4.83 4.30 - 5.80 M/cumm [facility] Comment: Interpretive Data A reference range for this assay has not been established for patients with an unknown legal sex. Please refer to the laboratory test catalog for established sex-specific reference intervals. Current interpretive data was last revised on 2023. MCV 87.8 81.3 - 96.4 fL [facility] MCH 32.1 27.1 - 33.3 pg [facility] MCHC 36.6(H) 32.3 - 35.7 g/dL [facility] RDW CV 12.5 11.1 - 14.9 % [facility] RDW SD 39.8 35.7 - 48.1 fL [facility] NRBC abs 0.00 0.00 - 0.01 K/cumm [facility] Blood (Blood, Venous) 09/28/2023 6:43 PM QUARRY BOSS 09/28/2023 6:47 PM QUARRY BOSS Yuko Naik DO LAB BLOOD ORDERABLES Final Resu lt SAMAN [address] [facility] [place] [address] * ECG 12 lead (09/28/2023 6:34 PM QUARRY BOSS) Pathologist [facility] Ventricular Rate EKG/Min 128 BPM [facility] Atrial Rate 128 BPM [facility] [place]-Interval (MSEC) 118 ms [facility] QRS-Interval (MSEC) 74 ms [facility] QT-Interval (MSEC) 334 ms [facility] QTc 487 ms [facility] P [place] 57 degrees [facility] R [place] 7 degrees [facility] T [place] 54 degrees [facility] Diagnosis Poor data quality, interpretation may be adversely affected Possible ??Sinus tachycardia with occasional Premature ventricular complexes Otherwise normal ECG When compared with ECG of 08-NOV-2021 13:58 P.M. Non-specific change in ST segment in Inferior leads T wave inversion no longer evident in Inferior leads Rate has decreased Suggest repeat EKG Confirmed by JINNY ZEPEDA M.D. ([id number]) on 10/01/2023 7:40:47 PM [facility] 09/28/2023 6:34 PM QUARRY BOSS 10/01/2023 7:40 PM QUARRY BOSS Yuko Naik DO ECG ORDERABLES Final Result Performing Organization Address [facility]/ZIP Co de Phone Number [facility] documented in this encounter Visit Diagnoses [...] Chest PainIndications:Chest Pain Given 09/28/2023 6:47 PM QUARRY BOSS 324 mg chlordiazePOXIDE (LIBRIUM) capsule 100 mg 100 mg, oral, Once, On Wed09/28/23 at 2013, For 1 dose Given 09/28/2023 8:15 PM QUARRY BOSS 100 mg cloNIDine (CATAPRES-TTS) 0.2 mg/24 hr patch weekly 1 patch 1 patch, transdermal, Administer over 7 Days, Weekly, First dose on Wed09/28/23 at 2315, Apply overlay over the clonidine patch. Write only on the overlay. Medication Applied 10/05/2023 8:35 AM QUARRY BOSS 1 patch Left Shoulder Medication Applied 09/29/2023 12:04 AM QUARRY BOSS 1 patch Left Arm folic acid (FOLVITE) tablet 1 mg 1 mg, oral, Daily, First dose on Wed09/29/23 at 0900, For 5 days, Each tablet contains 1 mg of folic acid (1.67 mg DFE)., Indications: Folate DeficiencyIndications:Folate Deficiency Given 10/03/2023 7:52 AM QUARRY BOSS 1 mg Given 10/02/2023 8:03 AM QUARRY BOSS 1 mg Given 10/01/2023 8:25 AM QUARRY BOSS 1 mg influenza quadrivalent [id number] (FLULAVAL,FLUARIX,FLUZONE) 60 mcg (15 mcg x 4)/0.5 [...] of 2 mg/minute. Given 09/28/2023 10:24 PM QUARRY BOSS 1 mg LORazepam (ATIVAN) injection 1 mg [...] Assessment Scale score Given 09/29/2023 3:07 PM QUARRY BOSS 1 mg Given 09/29/2023 9:27 AM QUARRY BOSS 1 mg Given 09/29/2023 3:37 AM QUARRY BOSS 1 mg LORazepam (ATIVAN) injection 2 mg 2 mg, intravenous, Once, On Wed09/29/23 at 0140, For 1 dose, For IV administration, draw up ordered admin dose/volume, then dilute with equal volume of 0.9% sodium chloride and administer total volume to patient. Do not exceed a rate of 2 mg/minute. Given 09/29/2023 1:56 AM QUARRY BOSS 2 mg LORazepam (ATIVAN) tablet 1 mg [...] Assessment Scale score Given 10/03/2023 12:22 PM QUARRY BOSS 1 mg LORazepam (ATIVAN) tablet 1 mg [...] Assessment Scale score Given 10/02/2023 5:52 PM QUARRY BOSS 1 mg Given 10/02/2023 3:23 PM QUARRY BOSS 1 mg Given 10/02/2023 1:01 PM QUARRY BOSS 1 mg naloxone (NARCAN) 0.4 mg/mL injection [...] otine Dependence Medication Applied 10/04/2023 3:53 PM QUARRY BOSS 1 patch Right Shoulder Medication Applied 10/03/2023 4:24 PM QUARRY BOSS 1 patch Left Arm Medication Applied 10/02/2023 4:44 PM QUARRY BOSS 1 patch Right Shoulder ondansetron (ZOFRAN) injection 4 mg 4 mg, intravenous, Administer over 2 Minutes, Once, On Wed09/28/23 at 1901, For 1 dose Given 09/28/2023 7:05 PM QUARRY BOSS 4 m g ondansetron (ZOFRAN) injection 4 mg 4 mg, intravenous, Administer over 2 Minutes, Once, On Wed09/28/23 at 2219, For 1 dose Given 09/28/2023 10:24 PM QUARRY BOSS 4 mg ondansetron (ZOFRAN) injection 4 mg 4 mg, intravenous, Administer over 2 Minutes, Every 6 hours PRN, nausea, vomiting, Starting on Oly 09/30/23 at 1225 Given 10/04/2023 8:07 AM QUARRY BOSS 4 mg Given 09/30/2023 12:56 PM QUARRY BOSS 4 mg ondansetron ODT (ZOFRAN-ODT) disintegrating tablet 4 mg 4 mg, oral, Every 6 hours PRN, nausea, vomiting, Starting on Oly 09/30/23 at 1225 oxyCODONE (ROXICODONE) tablet 5 mg 5 mg, oral, Every 4 hours PRN, moderate pain, Starting on Wed09/29/23 at 0236, Indications: PainIndications:Pain Given 10/01/2023 9:28 PM QUARRY BOSS 5 mg Given 10/01/2023 1:43 PM QUARRY BOSS 5 mg Given 10/01/2023 8:25 AM QUARRY BOSS 5 mg oxyCODONE (ROXICODONE) tablet 5 mg 5 mg, oral, Every 6 hours PRN, moderate pain, Starting on 10/02/23 at 1230, Indications: PainIndications:Pain Given 10/05/2023 12:46 PM QUARRY BOSS 5 mg Given 10/05/2023 7:48 AM QUARRY BOSS 5 mg Given 10/04/2023 5:53 PM QUARRY BOSS [address] (PROTONIX) extended release tablet 40 mg 40 mg, oral, 2 times daily, First dose on Loy 09/30/23 at 0900, Do not crush, chew, cut, dissolve, open or otherwise manipulate tablet/capsule., Indications: Treatment of Non-Bleeding Gastric DisorderIndications:Treatment of Non-Bleeding Gastric Disorder Given 10/05/2023 8:35 AM QUARRY BOSS 40 mg Given 10/04/2023 10:51 PM QUARRY BOSS 40 mg Given 10/04/2023 8:07 AM QUARRY BOSS 40 mg polyethylene glycol (MIRALAX) packet 17 g 17 g, oral, Daily PRN, constipation, Starting on Wed09/29/23 at 0235, Indications: constipationIndications:constipation Given 10/05/2023 9:55 AM QUARRY BOSS 17 g propranoloL (INDERAL) tablet 10 mg 10 mg, oral, 2 times daily, First dose (after last modification) on Wed09/29/23 at 1045 Given 10/05/2023 8:35 AM QUARRY BOSS 10 mg Given 10/04/2023 10:51 PM QUARRY BOSS 10 mg Given 10/04/2023 8:06 AM QUARRY BOSS 10 mg QUEtiapine (SEROquel) tablet 12.5 mg 12.5 mg, oral, 3 times daily, First dose on Wed09/29/23 at 1600 Given 10/05/2023 8:34 AM QUARRY BOSS 12.5 mg Given 10/04/2023 10:51 PM QUARRY BOSS 12.5 mg Given 10/04/2023 3:52 PM QUARRY BOSS 12.5 mg ramelteon (ROZEREM) tablet 8 mg 8 mg, oral, Nightly PRN, sleep, Starting on Wed09/29/23 at 0235, Indications: Sleep-Onset InsomniaIndications:Sleep-Onset Insomnia Given 10/03/2023 9:13 PM QUARRY BOSS 8 m g rifAXIMin (XIFAXAN) tablet 550 mg 550 mg, oral, 2 times daily, First dose on Wed09/29/23 at 1100, Indications: Hepatic EncephalopathyIndications:Hepatic Encephalopathy Given 10/05/2023 8:35 AM QUARRY BOSS 550 mg Given 10/04/2023 10:51 PM QUARRY BOSS 550 mg Given 10/04/2023 8:06 AM QUARRY BOSS 550 mg sertraline (ZOLOFT) tablet 50 mg 50 mg, oral, Every morning, First dose on Wed09/29/23 at 1245 Given 10/05/2023 8:35 AM QUARRY BOSS 50 mg Given 10/04/2023 8:07 AM QUARRY BOSS 50 mg Given 10/03/2023 7:52 AM QUARRY BOSS 50 mg simethicone (MYLICON) chewable tablet 160 mg 160 mg, oral, 2 times daily PRN, flatulence, Starting on Wed10/01/23 at 1553 Given 10/03/2023 4:24 PM QUARRY BOSS 160 mg Given 10/02/2023 1:01 PM QUARRY BOSS 160 mg sodium chloride 0.9% bolus 1,000 mL 1,000 mL, intravenous, at 1,000 mL/hr, Administer over 1 Hours, Once, On Wed09/28/23 at 2012, For 1 dose New 09/28/2023 8:16 PM QUARRY BOSS 1,000 mL 1000 mL/hr sodium chloride 0.9% bolus 1,000 mL 1,000 mL, intravenous, Once, On Wed09/28/23 at 2222, For 1 dose New Bag 09/28/2023 10:25 PM QUARRY BOSS 1,000 mL sodium chloride 0.9% infusion 100 mL/hr, intravenous, Continuous, Starting on Wed09/29/23 at 0236, For 12 hours New Bag 09/29/2023 2:58 PM QUARRY BOSS 100 mL/hr 100 mL/hr New Bag 09/29/2023 3:36 AM QUARRY BOSS 100 mL/hr 100 mL/hr sodium chloride 0.9% infusion 75 mL/hr, intravenous, Continuous, Starting on Wed09/30/23 at 1300 New Bag 10/04/2023 12:54 PM QUARRY BOSS 75 mL/hr 75 mL/hr New Bag 10/04/2023 12:00 AM QUARRY BOSS 75 mL/hr 75 mL/hr New Bag 10/03/2023 8:58 AM QUARRY BOSS 75 mL/hr 75 mL/hr sucralfate (CARAFATE) 100 mg/mL oral suspension 1 g 1 g, oral, 3 times daily with meals, First dose on Wed09/29/23 at 1200 Given 10/05/2023 8:36 AM QUARRY BOSS 1 g Given 10/04/2023 5:53 PM QUARRY BOSS 1 g Given 10/04/2023 11:46 AM QUARRY BOSS 1 g thiamine (VITAMIN B-1) 100 mg, folic acid (FOLVITE) 1 mg in sodium chloride 0.9% 100 mL IVPB intravenous, at 202.4 mL/hr, Administer over 30 Minutes, Once, On Wed09/28/23 at 2011, For 1 dose New Bag 09/28/2023 9:05 PM QUARRY BOSS 202.4 mL/hr thiamine (VITAMIN B-1) tablet 100 mg 100 mg, oral, Daily, First dose on Wed09/29/23 at 0900, For 5 days, Indications: Thiamine DeficiencyIndications:Thiamine Deficiency Given 10/03/2023 7:52 AM QUARRY BOSS 100 mg Given 10/02/2023 8:03 AM QUARRY BOSS 100 mg Given 10/01/2023 8:25 AM QUARRY BOSS 100 mg documented in this encounter Discontinued [...] Recently Administered Medications Times are shown in QUARRY BOSS. Scheduled Medication Order 10/03/2023 10/04/2023 10/05/2023 cloNIDine [...] Medication Order 10/03/2023 10/04/2023 10/05/2023 influenza quadrivalent [id number] (FLULAVAL,FLUARIX,FLUZON E) 60 mcg (15 mcg x [...] COVID: Suspected 09/29/2023 09/29/2023 09/29/2023 7:44 AM QUARRY BOSS documented as of this encounter Care Teams Game Designer Relationship Specialty Start Date End Date Major Dotson MD PCP - General Internal Medicine 11/07/21 Harpal Lopez MD [facility] [address] Referring Physician Internal Medicine 10/05/23 documented as of this encounter
--- OUTSIDE RECORDS SUMMARY | 2024-10-19 23:38 | XMS_ITS | Encounter Summary ---
Author Organization [facility] Healthcare Address [address] [place] [id number] Care Team Providers Care Ferryboat Deckhand Name Role Phone Major Kraft MD Primary Care Provider [phone] Reason for Visit * Reason Comments Abdominal Pain Encounter Details Date Type Department Care Team (Late st Contact Info) Description 11/08/2021 1:42 PM CHALKER SOLES - 11/08/2021 3:21 PM [facility] Emergency [address] [address] Shortness of breath (Primary Dx); COVID-19 Discharge Disposition: Left Against Medical Advice Social History Tobacco Use Types Packs/Day Years Used Date Smoking Tobacco: Never Assessed Sex and Gender Information Value Date Recorded Sex Assigned at Not on file Legal Sex Male 1:24 PM [facility]ES Gender Identity Not on file Sexual Orientation Not on file documented as of this encounter Last Filed Vital Signs Vital Sign Reading Time Taken Comments Blood Pressure 111/76 11/08/2021 1:45 PM [facility]ALK[facility] SOLES Pulse 74 11/08/2021 1:45 PM [facility] SOLES Temperature 36.6 ??C (97.8 ??F) 11/08/2021 1:48 PM CS T Respiratory Rate 12 11/08/2021 1:45 PM [facility]ALK[facility] SOLES Oxygen Saturation 98% 11/08/2021 1:45 PM [facility] SOLES Inhaled Oxygen Concentration - - Weight 88.5 kg (195 lb) 11/08/2021 1:45 PM [facility] SOLES Height - - Body Mass Index - - documented in this encounter Discharge Disposition Disposition Code Departure Means Destination Left Against Medical Advice documented in this encounter ED Notes * Silke Davidson PA - 11/08/2021 1:52 PM CST HPI Chief Complaint Patient presents with ??? Abdominal Pain HPI Patient is a 36-year-old male history of cirrhosis, presents via EMS from care home with shortness of breath. Patient reports a [...] booster. Followedby GI and liver specialist at [facility]. Scheduled to see them in 4 days. [...] -- -- -- -- Oral Physical Exam [facility] ED Course as of 11/09/21 0838 Time: [...] cardiopulmonary abnormality. By: Silke Davidson PA Time: 11/081 Comment: Patient no longer wants to participate [...] Mansoor Valdes MD at 11/09/2021 2:54 PM [facility]ALKER SOLES KER SOLES KER SOLES * Marisol Iglesias, ALFREDO - 11/08/2021 1:43 PM CST Arrives from [facility] in [place], was sent out yesterday to have beely tapped , and they said they couldn't find a pocket. Pt sent to [facility] today per Dr Kraft request to have abd tapped. Pt states that he has gained 40-50lbs in the past 30 days but thanksgiving and deshawn just happened . Las time abd was drained was July KER SOLES documented in this encounter Plan of Treatment Scheduled Orders Name Type Priority Associated Diagnoses Orde r Schedule Urinalysis reflex to microscopic and culture Urine, clean voided Microbiology STAT STAT for 1 Occurrences starting 11/08/2021 until 11/08/2021 documented as of this encounter Procedures Procedure Name Priority Date/Time Associated Diagnosis Comments XR CHEST 1 VIEW ED Urgent/IP Urgent 11/08/2021 2:10 PM [facility]ES ECG 12-LEAD STAT 11/08/2021 1:58 PM [facility] INFLUENZA A/B, RSV, AND COVID-19 PCR Routine 11/08/2021 1:57 PM [facility]ES EGFR STAT 11/08/2021 1:57 PM [facility] DIFFERENTIAL AUTO STAT 11/08/2021 1:5 7 PM [facility]ES PRO B-TYPE NATRIURETIC PEPTIDE STAT 11/08/2021 1:57 PM [facility] CBC WITH AUTO DIFFERENTIAL STAT 11/08/2021 1:57 PM [facility] PROTIME-INR STAT 11/08/2021 1:57 PM [facility] COMPREHENSIVE METABOLIC PANEL STAT 11/08/2021 1:57 PM [facility]ALK[facility] SOLES documented in this encounter Results * XR Chest 1 View (11/08/2021 2:10 PM CHALKER SOLES) Anatomical Region Laterality Modality Body, Chest N/A Computed Radiogr aphy 11/08/2021 2:21 PM [facility]ALK[facility] SOLES Narrative 11/08/2021 2:23 PM [facility]ES EXAM DESCRIPTION: ?? XR CHEST 1 VIEW [...] 11/08/2021 2:23 PM - Electronically signed by ??Hwoard SANDY D: ??11/08/2021 2:23 PM T: Report ID: [id number] Reading Location: ??[id number] Procedure Note Howard Rossi MD - 11/08/2021 [...] signed by Howard SANDY T: Report ID: [id number] Reading Location: [place] [address] Sil[facility] HALL IMG XR PROCEDURES Final Resul t * ECG 12 lead (11/08/2021 1:58 PM CHALKER SOLES) [facility] Ventricular Rate EKG/Min 74 BPM [facility] Atrial Rate 74 BPM [facility] [place]-Interval (MSEC) 132 ms [facility] QRS-Interval (MSEC) 92 ms [facility] QT-Interval (MSEC) 408 ms [facility] QTc 452 ms [facility] P [place] 21 degrees [facility] R [place] 5 degrees [facility] T [place] 40 degrees [facility] Diagnosis Normal sinus rhythm Minimal voltage criteria for LVH, may be normal variant Borderline ECG No previous ECGs available [facility] 11/08/2021 1:58 PM [facility]ES 11/08/2021 3:01 PM [facility]ES Silke HALL ECG ORDERABLES Final Result [facility] * eGFR (11/08/2021 1:57 PM CHALKER SOLES) eGFR 117 mL/min/1. 73 m2 [facility] DUMONT [...] last reviewed 2021. Blood 11/08/2021 1:57 PM [facility]ES 11/08/2021 1:58 PM [facility]ALKER SOLES us Silke HALL LAB BLOOD ORDERABLES Final Re sult [facility] [address] [facility] [place] [address] * (ABNORMAL) Differential, auto (11/08/2021 1:57 PM CHALKER SOLES) Neutrophil abs 3.1 1.7 - 6.5 K/cumm [facility] DUMONT Imm gran abs 0.0 0.0 - 0.1 K/cumm [facility] Lymphocyte abs 1.7 0.8 - 3.3 K/cumm [facility] Monocyte abs 1.3(H) 0.2 - 0.8 K/cumm [facility] Eosinophil abs 0.3 0.0 - 0.5 K/cumm [facility] Basophil abs 0.1 0.0 - 0.1 K/cumm [facility] Neutrophil pct 47.6 % [facility] Comment: Interpretive Data Percent cell count reference ranges are not reported, since discordance with absolute values may lead to misinterpretation of CBC data. Current Interpretive Data was last revised on 2018. Imm gran pct 0.5 % [facility] Comment: Interpretive Data Percent cell count reference ranges are not reported, since discordance with absolute values may lead to misinterpretation of CBC data. Current Interpretive Data was last revised on 2018. Lymphocyte pct 26.9 % [facility] Comment: Interpretive Data Percent cell count reference ranges are not reported, since discordance with absolute values may lead to misinterpretation of CBC data. Current Interpretive Data was last revised on 2018. Monocyte pct 19.7 % [facility] Comment: Interpretive Data Percent cell count reference ranges are not reported, since discordance with absolute values may lead to misinterpretation of CBC data. Current Interpretive Data was last revised on 2018. Eosinophil pct 4.2 % [facility] Comment: Interpretive Data Percent cell count reference ranges are not reported, since discordance with absolute values may lead to misinterpretation of CBC data. Current Interpretive Data was last revised on 2018. Basophil pct 1.1 % [facility] Comment: Interpretive Data Percent cell count reference ranges are not reported, since discordance with absolute values may lead to misinterpretation of CBC data. Current Interpretive Data was last revised on 2018. Blood 11/08/2021 1:57 PM [facility]ES 11/08/2021 1:58 PM [facility]ES us Silke [facility]ALL LAB BLOOD ORDERABLES Final Re sult SAMAN [address] [facility] [place] [address] * (ABNORMAL) Influenza A/B, RSV, and COVID-19 PCR Nasopharyngeal (11/08/2021 1:57 PM CHALKER SOLES) Pathologist [facility] COVID-19 RNA Positive(A) Negative [facility] Influenza A RNA Negative Negative [facility] Influenza B RNA Negative Negative [facility] RSV RNA Negative Negative [facility] Comment: Interpretive data: This test is performed using the [employer] Xpress CoV-2/Flu/RSV plus assay. This is a [...] last revised 2021. First COVID-19 test? Unknown [facility] Employeed in healthcare? No [facility] Group care resident? Yes [facility] Hospitalized? Unknown [facility] Is patient in ICU? No [facility] Symptomatic as defined by CDC? Yes [facility] Nasopharyngeal 11/08/2021 1: 57 PM [facility] 11/08/2021 1:58 PM [facility] Narrative [facility] - 11/08/2021 2:38 PM [facility]ALKER [facility]ES Date of Symptom Onset->11/08/21 Reason for testing?->Symptomatic Known exposure to confirmed or suspected COVID-19 case?->No Silke [facility] LAB MICROBIOLOGY - GENERAL OR DERABLES Final Result [facility] [address] [facility] [place] [address] * (ABNORMAL) Protime-INR (11/08/2021 1:57 PM CHALKER SOLES) [facility] PT 15.1(H) 12.0 - 14.6 sec [facility] Comment:Ref Range High INR 1.2 [facility] Comment: Ref Range High Interpretive data Oral anticoagulant therapeutic ranges: Venous thromboembolism prophylaxis or treatment: 2.0-3.0 CARDIOLOGY Standard range: 2.0-3.0 High-intensity range: 2.5-3.5 Refer to indication-specific guidelines for appropriate target ranges for prosthetic heart valve replacement. Current interpretive data was last revised on 2019. Blood 11/08/2021 1:57 PM [facility]ES 11/08/2021 1:58 PM [facility]ALK[facility] SOLES us Silke HALL LAB BLOOD ORDERABLES Final Re sult MARIELLAJUAN [address] [facility] Department [place] [address] * Pro B-type natriuretic peptide (11/08/2021 1:57 PM [facility]ALKER SOLES) NT-proBNP 11 <=300 pg/mL [facility]AN DUMONT Comment: [...] Revised Date: 2018. Blood 11/08/2021 1:57 PM [facility]ES 11/08/2021 1:58 PM [facility]ES us Silke [facility] LAB BLOOD ORDERABLES Final Re sult [facility] [address] [facility] [place] [address] * (ABNORMAL) Comprehensive metabolic panel (11/08/2021 1:57 PM [facility]ALKER SOLES) Sodium 131(L) 135 - 145 mmol/L [facility] Potassium, pl 3.7 3.3 - 4.9 mmol/L [facility] Chloride 96(L) 97 - 110 mmol/L [facility] CO2 25 22 - 32 mmol/L [facility] Anion gap 10 2 - 15 mmol/L [facility] BUN 18 8 - 25 mg/dL [facility] Creatinine 0.80 0.80 - 1.30 mg/dL [facility] Glucose 84 70 - 199 mg/dL [facility] Comment: Interpretive Data Fasting glucose >/= [...] 2017. Calcium 8.9 8.5 - 10.3 mg/dL [facility] Bilirubin, total 0.4 0.1 - 1.2 mg/dL [facility] Protein, pl 8.2 6.5 - 8.5 g/dL [facility] Albumin 3.9 3.5 - 5.0 g/dL [facility] Alk phos 117 40 - 130 Units/L [facility] ALT 21 7 - 55 Units/L [facility] AST 27 10 - 50 Units/L [facility] Blood 11/08/2021 1:57 PM [facility] 11/08/2021 1:58 PM [facility]ALKER SOLES us Silke [facility] LAB BLOOD ORDERABLES Final Re sult [facility] [address] [facility] [place] [address] * (ABNORMAL) CBC with auto differential (11/08/2021 1:57 PM CHALKER SOLES) WBC 6.5 3.8 - 9.9 K/cumm [facility] Hgb 12.2(L) 13.0 - 17.5 g/dL [facility] Hct 37.2(L) 38.9 - 50.3 % [facility] Plt 152 150 - 400 K/cumm [facility] MPV 9.7 9.1 - 12.3 fL [facility] RBC 4.24(L) 4.30 - 5.80 M/cumm [facility] MCV 87.7 81.3 - 96.4 fL [facility] MCH 28.8 27.1 - 33.3 pg [facility] MCHC 32.8 32.3 - 35.7 g/dL [facility] RDW CV 19.1(H) 11.1 - 14.9 % [facility] RDW SD 61.9(H) 35.7 - 48.1 fL [facility] NRBC abs 0.00 0.00 - 0.01 K/cumm [facility] Blood 11/08/2021 1:57 PM [facility] 11/08/2021 1:58 PM [facility]ES us Silke [facility]ALL LAB BLOOD ORDERABLES Final Re sult [facility]AN [address] [facility] Department [place] [address] documented in this encounter Visit Diagnoses Diagnosis Shortness of breath- Primary COVID-19 documented in this encounter Orders IV Count Last Ordered Date First Orde red Date SALINE LOCK IV 1 11/08/2021 documented in this encounter Additional Health Concerns Infection Onset Date Last Indicated Resolved Time COVID: Suspected 11/08/2021 11/08/2021 11/08/2021 2:38 PM [facility] COVID19 11/08/2021 11/08/2021 11/18/2021 3:05 AM [facility]ALKER SOLES documented as of this encounter Care Teams Ferryboat Deckhand Relationship Specialty Start Date End Date Major Kraft MD PCP - General Internal Medicine 11/07/21 documented as of this encounter
--- OUTSIDE RECORDS SUMMARY | 2024-10-19 23:38 | XMS_ITS | Encounter Summary ---
Author Organization [facility] Address [address] [place] [address] [place] [id number] Care Team Providers Care Bladder Blower Name Role Phone Major Kraft MD Primary Care Provider [phone] Reason for Visit * Reason Onset Date Comments Covid-19 Home Monitoring 11/09/2021 Enrollm ent Encounter Details Date Type Department Care Team (Late st Contact Info) Description 11/09/2021 Telephone [facility] Accountable Care Organization [address] [place] [id number] Antonia Aquino LPN [address] [place] [id number] Covid-19 Home Monitoring (Enrollment) Social History Tobacco Use Types Packs/Day Years Used Date Smoking Tobacco: Never Assessed Sex and Gender Information Value Date Recorded Sex Assigned at Not on file Legal Sex Male 1:24 PM [employer] Gender Identity Not on file Sexual Orientation Not on file documented as of this encounter Miscellaneous Notes * Telephone Encounter - Antonia Aquino LPN - 11/09/2021 9:41 AM [employer] This patient was identified as a candidate for the [facility]/ COVID home monitoring program. The patient was contacted via phone for enrollment in the program. The patient has declined to participate in the automated MyChart [employer] Program, but has verbally agreed to the Phone Only Home Monitoring Program, which includes being contacted for a daily phone assessment by a [facility]/ staff member. The patient was informed that [...] the phone only version of the program. [employer]ER documented in this encounter Plan of Treatment Not on file documented as of this encounter Visit Diagnoses Not on filedocumented in this encounter Additional Health Concerns Infection Onset Date Last Indicated Resolved Time COVID19 11/08/2021 11/08/2021 11/18/2021 3:05 AM [employer] documented as of this encounter Care Teams Bladder Blower Relationship Specialty Start Date End Date Major Kraft MD PCP - General Internal Medicine 11/07/21 documented as of this encounter
--- NOTE | 2024-10-20 07:18 | P.DS_ITS ---
DS: Admitting Diagnosis Discharge Date 10/12/24 Admitting Diagnosis (1) Coffee ground emesis: Code(s): K92.0 - Hematemesis Status: Acute (2) Alcohol abuse: Code(s): F10.10 - Alcohol abuse, uncomplicated Status: Chronic (3) Alcohol use disorder: Code(s): F10.90 - Alcohol use, unspecified, uncomplicated Status: Acute (4) Hypokalemia: Code(s): E87.6 - Hypokalemia Status: Acute DS: Discharge Diagnosis Discharge Diagnosis (1) Coffee ground emesis: Code(s): K92.0 - Hematemesis Status: Acute (2) Alcohol abuse: Code(s): F10.10 - Alcohol abuse, uncomplicated Status: Chronic (3) Alcohol use disorder: Code(s): F10.90 - Alcohol use, unspecified, uncomplicated Status: Acute (4) Hypokalemia: Code(s): E87.6 - Hypokalemia Status: Acute DS: Summary Hospital Course Hospital Course: Per H&P: This is a 39-year-old male with past medical history significant for hepatic cirrhosis, alcohol dependence, portal hypertension, pulmonary embolism, thrombocytopenia, hip fracture of the left leg chronic, chronic anemia, esophageal varices. [facility]. Comes to the emergency room after having coffee-ground emesis episode denies bright red blood per rectum or melena. patient has been in his usual state of health up until today. Preliminary workup was significant for hemoglobin of 14 hematocrit 42. Patient has been admitted for further evaluation management and treatment. The following medication issues have been addressed during hospitalization Acute GI bleeding Patient presented ED with chief complaint of hematemesis: Qualifiers: Nausea presence: with nausea Qualified Code(s): K92.0 - Hematemesis Code(s): K92.0 - Hematemesis Status: Acute Assessment and Plan: placed in observation in IMU holding apixaban consult to GI continue to monitor started on PPI Hemoglobin dropped slightly , consistent with acute blood loss anemia Patient is hemodynamically stable Follow-up CBC hemoglobin Transfuse p.r.n. Underwent EGD today. 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, gastritis Mechanical fall Patient had a fall yesterday, complained headache, chest pain, leg pain Head CT shows no acute intracranial issues, cervical spine shows no fracture, chest x-ray shows no rib fracture Patient still has headache, denies focal weakness, vision change Consult PT OT skin care consultant for evaluation Hypokalemia: Code(s): E87.6 - Hypokalemia Status: Acute Assessment and Plan: replace as needed Follow-up BMP, magnesium level within normal limit Alcohol use disorder: Code(s): F10.90 - Alcohol use, unspecified, uncomplicated Status: Acute Assessment and Plan: CIWA as needed Continue thiamine folic acid p.o. No sign of alcohol which show on discharge Deep vein thrombosis (DVT) of right lower extremity: Qualifiers: Affected thrombotic vein of extremity: unspecified vein of extremity Chronicity: acute Qualified Code(s): I82.401 - Acute embolism and thrombosis of unspecified deep veins of right lower extremity Code(s): I82.401 - Acute embolism and thrombosis of unspecified deep veins of right lower extremity Status: Acute Assessment and Plan: holding apixaban during hospitalization Resume Eliquis on discharge Pulmonary embolism: Code(s): I26.99 - Other pulmonary embolism without acute cor pulmonale Status: Acute Assessment and Plan: holding apixaban upon arrival. Resume Eliquis when patient was discharged Fracture of left hip: Code(s): S72.002A - Fracture of unspecified part of neck of left femur, initial encounter for closed fracture Status: Chronic Assessment and Plan: supportive care Liver cirrhosis, ascites, Portal hypertension: Code(s): K76.6 - Portal hypertension Status: Acute Assessment and Plan: continue propranolol, lactulose 30 g t.i.d. p.o. 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 Well-nourished. - EYES: EOMI. Anicteric. - HENT: Moist mucous membranes. Atrauma tic - LUNGS: Clear to auscultation bilateral ly, no wheezing, rhonchi, or rales. - CARDIOVASCULAR: Regular rate and rhyth m. No murmur. No JVD. - ABDOMEN: Soft, non-tender some distend ed. No palpable masses. - EXTREMITIES: No edema. Peripheral puls es 2+. Non-tender. - NEUROLOGIC: No focal neurological defi cits. CN II-XII grossly intact. - PSYCHIATRIC: Awake, Alert and oriented x 3. Appropriate mood and affect. - SKIN: No rashes or lesions. Warm. - LYMPH: No cervical lymphadenopathy. Discharge Plan Discharge Attending physician on discharge: Yg Joseph Consulting providers: Eric Oconnell; Valdez Galarza; Shree Roberts; Yefri Camargo Jr.; Andrea Porter; Alfredo Dowling V. Discharging Clinician: Yg Joseph Anticipated Discharge Date/Time: 10/12/24 11:08 Patient Disposition: SNF Activity: as tolerated Diet: as tolerated and regular Patient Instructions: Apixaban (By mouth), Pain Management (DC) Patient Language: Algerian Stand Alone Forms: General Discharge Information Follow-up/Referrals: Eric Oconnell MD [Physician] - (Patient needs to see GI on scheduled appointment) Discharge Medications: Continued folic acid 1 mg tablet 1 mg PO DAILY Qty: 30 0RF thiamine HCl (vitamin B1) 100 mg Tablet 100 mg PO DAILY ferrous sulfate 325 mg (65 mg iron) Tablet 325 mg PO DAILY Xifaxan 550 mg tablet 550 mg PO BID spironolactone [Aldactone] 50 mg tablet 100 mg PO DAILY furosemide [Lasix] 20 mg tablet 60 mg PO BID sucralfate 100 mg/mL suspension 10 ml PO TID diclofenac sodium 1 % Gel 2 g TOPICAL BID PRN (Reason: Pain) Rx Instructions: ANYWHERE ON THE BODY magnesium oxide 400 mg tablet 400 mg PO HS propranolol 10 mg tablet 10 mg PO BID Eliquis DVT-PE Treat 30D Start 5 mg (74 tabs) tablets,dose pack See Rx Instructions .ROUTE .COMPLEX Qty: 74 0RF Rx Instructions: orally per package directions lidocaine [Aspercreme (lidocaine)] 4 % Adhesive Patch,Medicated 1 patch TOPICAL DAILY Rx Instructions: Apply to Rt. Upper quadrant of abdomen Lactobacillus acidophilus Tablet 1,000 mmu cells PO BID Biofreeze (menthol) 5 % Adhesive Patch,Medicated 1 patch TOPICAL DAILY Rx Instructions: 1 patch to abdomen haloperidol 5 mg tablet 2.5 mg PO BID gabapentin 400 mg capsule 400 mg PO TID simethicone 80 mg Tablet,Chewable 80 mg PO BID PRN (Reason: Abdominal Discomfort) tzfijevw-hwrhh-xeoacah-diperod Ointment 1 ea TOPICAL QID lidocaine HCl [Aspercreme (lidocaine HCl)] 4 % cream 1 applic topical DAILY calcium carbonate [Antacid (calcium carbonate)] 200 mg calcium (500 mg) tablet,chewable 200 mg PO TID alum-mag hydroxide-simeth [Advanced Antacid-Antigas] 200-200-20 mg/5 mL suspension 30 ml PO QID PRN (Reason: indigestion) lorazepam 1 mg tablet 1 mg PO Q6H hydrocodone-acetaminophen 10-325 mg tablet 1 tablet PO Q6H PRN (Reason: pain) melatonin 3 mg Tablet 3 mg PO HS calcium carbonate 500 mg calcium (1,250 mg) Tablet,Chewable 500 mg PO TID Rx Instructions: With Meals cholecalciferol (vitamin D3) 125 mcg (5,000 unit) Tablet 125 mcg PO DAILY potassium chloride 20 mEq Tablet Extended Release 20 meq PO DAILY trazodone 50 mg tablet 50 mg PO QHS prazosin 1 mg capsule 1 mg PO QID ondansetron HCl 4 mg Tablet 4 mg PO Q8H PRN (Reason: nausea/vomiting) bupropion HCl 100 mg tablet 100 mg PO TID lactulose 10 gram/15 mL solution 30 ml PO TID buspirone 5 mg tablet 15 mg PO TID baclofen 10 mg tablet 10 mg PO BID hydroxyzine HCl 25 mg tablet 25 mg PO TID apixaban 5 mg tablet 5 mg PO BID Qty: 30 0RF Discontinued acetaminophen [Acetaminophen Extra Strength] 500 mg Tablet 1,000 mg PO Q6H PRN (Reason: Pain) acetaminophen 650 mg tablet extended release 650 mg PO Q8H PRN (Reason: pain) Qty: 20 0RF Date of admission: 10/10/24 09:29 Primary Care Provider: Teodoro Lopez Admitting Provider: Manuel Dorsey V. Attending physician on admission: Yg Joseph Condition: Stable
== END 2024-10-12 12:46 | DRG 378 ==
LOC: ANHED 17:25 → ANHIMU 23:34 → ANH3MEDSUR 10-10 13:37
PROVIDERS: Internal Medicine Gastroenterology; Admitting Provider Internal Medicine; Emergency Provider Physician Assistant; PCP Hospitalist; Visit Provider Hospitalist
PROC: 0DJ08ZZ Inspection of Upper Intestinal Tract, Via Natural or Artificial Opening Endoscopic (ICD-10-PCS; CPT 43235; principal; 2024-10-10 13:00)
DX: K92.0 Hematemesis (principal); K76.6 Portal hypertension; S72.92XK Unspecified fracture of left femur, subsequent encounter for closed fracture with nonunion; K70.30 Alcoholic cirrhosis of liver without ascites; K22.70 Barrett's esophagus without dysplasia; K29.70 Gastritis, unspecified, without bleeding; I85.10 Secondary esophageal varices without bleeding; E87.6 Hypokalemia; D69.6 Thrombocytopenia, unspecified; R51.9 Headache, unspecified; F32.A Depression, unspecified; F41.9 Anxiety disorder, unspecified; F17.210 Nicotine dependence, cigarettes, uncomplicated; W18.30XA Fall on same level, unspecified, initial encounter; Y92.239 Unspecified place in hospital as the place of occurrence of the external cause; Z86.718 Personal history of other venous thrombosis and embolism; Z86.711 Personal history of pulmonary embolism; Z79.01 Long term (current) use of anticoagulants; Z99.3 Dependence on wheelchair; Z91.81 History of falling; F10.10 Alcohol abuse, uncomplicated
CPT/HCPCS: 36415; 70450; 71046; 72125; 73502; 74177; 76705; 80048; 80053; 81003; 83690; 83735; 85014; 85018; 85025; 85610; 85730; 96365; 96375; 99285; A9270; G0378; J2405; J2470; J2704; J3480; J7040; J7120; Q9967

== ENCOUNTER 2024-10-29 17:36 | Emergency (ER) | payer MEDICARE, MEDICAID, SELFPAY ==
[2024-10-29] VITALS (8 sets, daily range): BP systolic 115–117; BP diastolic 56–88; PULSE 90–99; RESP 12–21; TEMP 36.7; O2SAT 97–100
--- NOTE | ~2024-10-29 | CT_ITS ---
EXAMINATION: CTA chest abdomen pelvis DATE: 10/29/2024 19:04 CURRICULUM SUPERVISOR INDICATION: Chest pain with new onset back pain and lower leg edema TECHNIQUE: Computed tomographic angiography (CTA) of the chest was performed, along with multiple con tiguous axial images of the abdomen and pelvis with 100 mL Omnipaque-350 intravenous contrast. The do se-length product was 1306.52 mGy-cm. Maximum intensity projection 3D-reconstructions of the aorta an d other arteries were constructed by the technologist on a separate workstation. FINDINGS/OBSERVATIONS: PULMONARY ARTERIES: No filling defect is identified within the main or proximal pulmonary artery. Recanalization of the filling defect is seen within the right descending pulmonary artery on previous examination dated 09/05/2024. The main pulmonary artery is not enlarged. THORACIC AORTA: No aneurysmal dilatation or dissection is present. The great vessels are intact LUNGS: Large right apical bulla, unchanged from 09/05/2024. The remainder of the lungs are clear. MEDIASTINUM: No morphologically suspicious or pathologically enlarged lymph nodes are identified with in the mediastinum or bilateral axilla. BONES OF THE CHEST: No acute fracture. No significant degenerative disease. No lytic or blastic lesions. HEART: The heart is enlarged, without pericardial effusion. LIVER: The contour of the liver is nodular. The liver is enlarged measuring 21 cm in longitudinal dimension. The liver enhances homogeneously. GALLBLADDER AND BILIARY SYSTEM: The gallbladder is only minimally distended, and otherwise unremarkable. PANCREAS: The pancreas enhances homogeneously without ductal dilatation. SPLEEN: The spleen enhances homogeneously and is not enlarged measuring 8 cm in longitudinal dimension. KIDNEYS: The bilateral kidneys enhance symmetrically without hydronephrosis or renal calculi. ADRENAL GLANDS: Unremarkable. GASTROINTESTINAL TRACT: Colonic diverticulosis without surrounding inflammatory change. APPENDIX: The air-filled appendix is of normal caliber (axial series, images 184 - 213). VASCULATURE: Unremarkable. No aneurysmal dilatation or significant stenosis. No dissection. LYMPH NODES: No pathologically enlarged or morphologically suspicious lymph nodes within the retroperitoneum or at the root of the mesentery. PELVIC STRUCTURES: The bladder is only minimally distended, and otherwise unremarkable. The prostate gland is not enlarged, but demonstrates multiple bulky calcifications. BODY WALL AND MUSCULOSKELETAL: Small, complex fat-containing umbilical hernia. No significant degenerative disease within the thoracic or lumbosacral spine. Prior left hip fracture redemonstrated. IMPRESSION: Resolution of the previously identified pulmonary embolus. Nodular contour of the enlarged liver. No aneurysmal dilatation or dissection of the thoracic/abdominal aorta. Reviewed, dictated and finalized at location A. ICULUM SUPERVISOR
--- NOTE | ~2024-10-29 | XR_ITS ---
CHEST RADIOGRAPH, PA AND LATERAL CLINICAL HISTORY: chest pain . COMPARISON: 10/11/2024 TECHNIQUE: PA and lateral views of the chest. FINDINGS The cardiomediastinal silhouette is unremarkable. The lungs are clear. Visualized osseous structures and soft tissues are unremarkable. IMPRESSION: No focal infiltrate or effusion. Reviewed, dictated and finalized at location A. ATOLOGY NURSE
--- NOTE | 2024-10-29 17:46 | ECG_ITS ---
Test Date: 2024-10-29 17:49:29 Measurements Intervals [place] Rate: 91 P: 24 WI: 135 QRS: 2 QRSD: 96 T: 55 QT: 357 QTc: 440 Interpretive Statements SINUS RHYTHM Compared to ECG 09/05/2024 20:06:03 No significant changes Electronically Signed On 11-01-2024 16:48:26 LINE PRODUCER by Padmini Cornelius M.D.
[2024-10-29 18:04] LABS: Basophils Absolute Auto 0.1 K/mm3 (0.0-0.1); Basophils Percent Auto 1.1 % (0.2-1.2); Eosinophils Absolute Auto 0.1 K/mm3 (0-0.3); Eosinophils Percent Auto 1.8 % (0-4.4); Hematocrit 42.7 % (42.0-52.0); Immature Granulocyte Absolute 0.03 K/mm3 (0.00-0.031); Immature Granulocyte Percent A 0.5 % (0-0.5); Lymphocytes Absolute Auto 2.38 K/mm3 (0.9-3.2); Lymphocytes Percent Auto 36.6 % (18.3-44.2); Mean Corpuscular HGB Conc 35.1 g/dl (32-36); Mean Corpuscular Hemoglobin 33.5 pg (26-34); Mean Corpuscular Volume 95.3 fl (80-100); Mean Platelet Volume 9.7 fl (7.4-10.4); Monocytes Absolute Auto 1.1 K/mm3 (0.1-0.6); Monocytes Percent Auto 16.7 % (2.6-8.5); Neutrophils Absolute Auto 2.8 K/mm3 (1.3-6.7); Neutrophils Percent Auto 43.3 % (45.5-73.1); Platelet Count Result 187 k/mm3 (150-375); Red Blood Count 4.48 M/mm3 (4.6-6.20); Red Cell Distribution Width 12.9 % (11.5-14.5); White Blood Count 6.5 K/mm3 (4.5-10.0)
[2024-10-29 18:18] LABS: Alanine Aminotransferase 32 U/L (6-50); Albumin Level 4.3 g/dL (3.5-5.1); Alkaline Phosphatase 95 U/L (38-126); Anion Gap 9 mmol/L (4-12); Aspartate Amino Transferase 36 U/L (17-59); Bilirubin,Total 0.5 mg/dL (0.2-1.3); Blood Urea Nitrogen 6 mg/dL (9-20); Calcium 8.8 mg/dL (8.4-10.2); Carbon Dioxide 27 mmol/L (22-30); Chloride 101 mmol/L (98-107); Estimated CRCL calculation 125 ml/min; Estimated Glomerular Filt Rate > 60; Glucose 89 mg/dL (65-110); Lipase 151 U/L (23-300); Sodium 137 mmol/L (137-145)
[2024-10-29 18:20] LABS: INR 1.2; Partial Thromboplastin Time 31.1 Seconds (22.3-36.8); Prothrombin Time 15.3 Seconds (11.1-14.7)
[2024-10-29 18:29] LABS: Troponin I < 0.012 ng/mL (0.000-0.034)
--- NOTE | 2024-10-29 18:29 | ED_ITS ---
HPI - Chest Pain General Chief Complaint: Chest Pain Stated Complaint: chest pain Time Seen by Provider: 10/29/24 17:59 History of Present Illness HPI narrative: 39-year-old male with a past medical history significant for hepatic liver cirrhosis, alcohol abuse, portal hypertension, varices, Holt's esophagus, esophagitis, pulmonary embolism and DVT on Eliquis, chronic anemia. Patient presents from his [place] [facility] facility for concerns of chest pain radiating towards his back. He states he gets GERD like symptoms with burning esophageal pain from his neck down to his epigastrium but this is different pain according to the patient. He states that he was watching a movie not doing anything particularly strenuous when he suddenly had chest pain that started radiating towards his back near his midsternum. Denies any trauma or exertion, no recent illnesses. States that food is not making it better or worse. Endorses some nausea but no vomiting. No lower abdominal pain, symptoms. He states he has also had some leg swelling bilaterally over last few days there has been worsening despite his normal medications such as Lasix and spironolactone. Patient states he was admitted to the hospital about 1 month prior for epigastric abdominal pain but again reiterates this feels like a different pain to him. Related Data Home Medications ?Medication ?Instructions ?Recorded ?Confirmed ?Last Taken ?Type thiamine HCl (vitamin B1) 100 mg 100 mg PO DAILY 04/20/21 10/10/24 01/12/24 History tablet melatonin 3 mg tablet 3 mg PO HS 09/15/21 10/10/24 09/23/21 History ferrous sulfate 325 mg (65 mg 325 mg PO DAILY 11/12/21 10/10/24 01/12/24 History iron) tablet rifaximin 550 mg tablet (Xifaxan) 550 mg PO BID 11/12/21 10/10/24 01/12/24 History calcium carbonate 500 mg PO TID 06/24/22 10/10/24 01/12/24 History cholecalciferol (vitamin D3) 125 125 mcg PO DAILY 06/24/22 10/10/24 01/12/24 History mcg (5,000 unit) tablet potassium chloride 20 mEq 20 meq PO DAILY 06/24/22 10/10/24 01/12/24 History tablet,extended release furosemide 20 mg tablet (Lasix) 60 mg PO BID 12/14/22 10/10/24 01/12/24 History spironolactone 50 mg tablet 100 mg PO DAILY 12/14/22 10/10/24 01/12/24 History (Aldactone) diclofenac sodium 1 % topical gel 2 g topical BID PRN Pain 12/15/23 10/10/24 Unknown History magnesium oxide 400 mg PO HS 12/15/23 10/10/24 01/12/24 History propranolol 10 mg tablet 10 mg PO BID 12/15/23 10/10/24 01/12/24 History sucralfate 100 mg/mL oral 10 ml PO TID 12/15/23 10/10/24 01/12/24 History suspension baclofen 10 mg tablet 10 mg PO BID 01/12/24 10/10/24 01/12/24 History bupropion HCl 100 mg tablet 100 mg PO TID 01/12/24 10/10/24 01/12/24 History buspirone 5 mg tablet 15 mg PO TID Anxiety 01/12/24 10/10/24 01/12/24 History hydroxyzine HCl 25 mg tablet 25 mg PO TID Anxiety 01/12/24 10/10/24 01/12/24 History lactulose 10 gram/15 mL oral 30 ml PO TID 01/12/24 10/10/24 01/12/24 History solution ondansetron HCl 4 mg tablet 4 mg PO Q8H PRN nausea/vomiting 01/12/24 10/10/24 Unknown History prazosin 1 mg capsule 1 mg PO QID 01/12/24 10/10/24 01/12/24 History trazodone 50 mg tablet 50 mg PO QHS 01/12/24 10/10/24 01/11/24 History Lactobacillus acidophilus 1,000 mmu cells PO BID 08/25/24 10/10/24 Unknown History gabapentin 400 mg capsule 400 mg PO TID 08/25/24 10/10/24 Unknown History haloperidol 5 mg tablet 2.5 mg PO BID 08/25/24 10/10/24 Unknown History lidocaine 4 % topical patch 1 patch topical DAILY 08/25/24 10/10/24 Unknown History (Aspercreme (lidocaine)) menthol 5 % topical patch 1 patch topical DAILY 08/25/24 10/10/24 Unknown History (Biofreeze (menthol)) rgkzpehx-incmr-jzsommh-diperod 1 ea topical QID 08/25/24 10/10/24 Unknown History topical ointment simethicone 80 mg chewable tablet 80 mg PO BID PRN Abdominal 08/25/24 10/10/24 Unknown History Discomfort aluminum-mag hydroxide-simethicone 30 ml PO QID PRN indigestion 10/10/24 10/11/24 Unknown History 200 mg-200 mg-20 mg/5 mL oral susp (Advanced Antacid-Antigas) calcium carbonate (Antacid 200 mg PO TID 10/10/24 10/10/24 Unknown History (calcium carbonate)) lidocaine HCl 4 % topical cream 1 applic topical DAILY 10/10/24 10/10/24 Unknown History (Aspercreme (lidocaine HCl)) lorazepam 1 mg tablet 1 mg PO Q6H 10/10/24 10/10/24 Unknown History hydrocodone 10 mg-acetaminophen 1 tablet PO Q6H PRN pain 10/11/24 10/11/24 Unknown History 325 mg tablet Allergies Allergy/AdvReac Type Severity Reaction Status Date / Time peanut Allergy Severe Anaphylaxis Verified 10/10/24 08:42 shellfish derived Allergy Unknown Unknown Verified 10/10/24 08:42 mushroom AdvReac Unknown Verified 10/10/24 08:42 Review of Systems 2 Review of Systems: [facility] Past Medical History Medical History Hx of mcc use of blood thinners DVT (deep venous thrombosis) Pulmonary embolism Elevated white blood cell count, unspecified Insomnia, unspecified Hepatic failure, unspecified without coma Chronic anemia GI bleed Secondary to bleeding varices. Esophageal varices Depression with anxiety Fracture of left hip Cirrhosis Holt's esophagus with esophagitis Tobacco abuse Alcoholic hepatitis Alcohol abuse Surgical History Surgical History History of colonoscopy with polypectomy (05/25/22) Benign colon polyp, internal hemorrhoids. History of esophagogastroduodenoscopy (05/22/22) Nonbleeding esophageal varices, Holt esophagus without dysplasia, gastritis. Family History Family History Mother Liver disease Cirrhosis Grandparent Heart failure Heart attack Social History Social History Social History: Surrogate medical decision maker: Modesto Diaz, father. Code status: Full code. Smoking packs per day: 0.25 Smoking cigarettes per day: 5.0 Years smoked: 20 Smoking pack-years: 5.00 Smoking status: Current every day smoker Additional smoking assessment comments: Now smoking about 5 cigarettes a day while at a [place] [facility] facility. T Alcohol intake: former Drinks per week: 120 Alcohol use details: Longstanding history of alcohol abuse. Substance use: current Substance use type: does not use Last use: 7 liters vodka week; patient states no alcohol x2 weeks Do You Feel Safe in your Home?: Yes Lack of Transportation: No Lack of Food: Never True Current Housing: I Have Housing Concerned About Future Housing: No Difficulty Paying Gas/Electric Bills: No Difficulty Paying for Meds: No Currently Unemployed: No Education: High School Diploma/GED Difficulty w/ Childcare or Family Care: No Living arrangements: snf Additional living arrangements comments: [facility] [place] Spiritual care concerns: No Exam 2 Narrative: GENERAL: Chronically ill-appearing but not any acute distress, answering questions appropriately HEAD: [Normocephalic, atraumatic.] EYES: [PERRLA and EOMI.] ENT: Nares clear, no rhinorrhea or epistaxis. Mucous membranes moist. NECK: Supple. CHEST: [Clear to auscultation. No respiratory distress.] HEART: [Regular rate and rhythm]. No murmur heard. [Normal peripheral pulses.] Warm well-perfused extremities ABDOMEN: Protuberant but soft, abdominal striae noted, distended abdominal veins noted, [nontender], [No rigidity or guarding] EXTREMITIES: Normal range of motion. 2+ edema SKIN: Warm, dry, no rash. NEURO: [No focal deficits]. Alert and oriented [x3.] PSYCH: [Normal mood and affect.] Course Vital Signs Vital signs: Vital Signs Temperature 36.7 C 10/29/24 17:40 Pulse Rate 97 10/29/24 17:40 Respiratory Rate 16 10/29/24 17:40 Blood Pressure 117/88 10/29/24 17:40 Pulse Oximetry 98 10/29/24 17:40 Oxygen Delivery Room Air 10/29/24 17:40 Temperature 36.7 C 10/29/24 17:40 Pulse Rate 95 10/29/24 19:01 Respiratory Rate 14 10/29/24 19:01 Blood Pressure 115/82 10/29/24 19:01 Pulse Oximetry 99 10/29/24 19:01 Oxygen Delivery Autopap 10/29/24 17:44 MDM - Chest Pain MDM Narrative Medical decision making narrative: 39-year-old male with complex history including liver cirrhosis, esophageal varices, esophagitis, Holt's esophagus, portal hypertension, pulmonary embolism history on Eliquis. He presents to the emergency department today with a chief complaint of chest pain radiating towards his back. He states it feels very similar from his gastritis type pain that he has had previously. Denies any abdominal pain, pain was sudden in onset. He is chronically ill-appearing, has evidence of chronic liver disease with edema in both legs, dilated vessels around his abdomen, abdominal distension with striae. He has strong symmetric pulses in all limbs, warm extremities. Vital signs are reassuring with no tachycardia, hypoxia, fever, blood pressure concerns. He has not missed any medication dosages and is still taking Eliquis for anticoagulation of his DVT/PEs had. Concern presently is for potential acute coronary syndrome especially with his complex medical history versus other underlying process such as pneumonia, pneumothorax, esophagitis. Suspicion also raise for potentially vascular process such as a dissection although less likely in the differential. Workup was ordered including cardiac assessment with serial EKGs, troponin, chest x-ray. CT angiography of his chest abdomen pelvis was ordered and he was treated symptomatically with morphine, Pepcid, Maalox and Zofran. Patient was re-evaluated frequently and had symptomatic resolution after the medications provided. No leukocytosis or anemia. Negative troponin. Coag studies within normal limits. Normal renal function panel, normal hepatic function panel. Normal lipase. Chest x-ray shows no focal infiltrates or effusion. No pneumonia. CT angiography shows resolution of the previous PE, no aneurysmal dissection, dilatation or any process in the thoracic or abdominal aorta. Given patient's resolution of symptoms and negative CT imaging as well as negative workup I believe he can be safely discharged with regular PCP and GI follow-up. Patient was okay with this plan of care and felt comfortable with discharge back to his facility. Vitals remained stable throughout the encounter and stable for discharge at this time. Medical Records Data Attestation: I reviewed the patient's medical records. Lab Data Attestation: I reviewed the patient's lab results. 10/29/24 17:58 10/29/24 17:58 Labs: Lab Results 10/29/24 Range/Units 17:58 WBC 6.5 (4.5-10.0) K/mm3 RBC 4.48 L (4.6-6.20) M/mm3 Hgb 15.0 (14.0-18.0) g/dL Hct 42.7 (42.0-52.0) % MCV 95.3 (80-100) fl MCH 33.5 (26-34) pg MCHC 35.1 (32-36) g/dl RDW 12.9 (11.5-14.5) % Plt Count 187 (150-375) k/mm3 MPV 9.7 (7.4-10.4) fl Immature Gran % (Auto) 0.5 (0-0.5) % Neut % (Auto) 43.3 L (45.5-73.1) % Lymph % (Auto) 36.6 (18.3-44.2) % Cook % (Auto) 16.7 H (2.6-8.5) % Eos % (Auto) 1.8 (0-4.4) % Baso % (Auto) 1.1 (0.2-1.2) % Lymph # (Auto) 2.38 (0.9-3.2) K/mm3 Cook # (Auto) 1.1 H (0.1-0.6) K/mm3 Eos # (Auto) 0.1 (0-0.3) K/mm3 Baso # (Auto) 0.1 (0.0-0.1) K/mm3 Abs Immat Gran (auto) 0.03 (0.00-0.031) K/mm3 Absolute Neuts (auto) 2.8 (1.3-6.7) K/mm3 Absolute Nucleated RBC 0.000 (0.0-0.012) K/mm3 Nucleated RBC % 0.0 (0.0-0.2) % PT 15.3 H (11.1-14.7) Seconds INR 1.2 APTT 31.1 (22.3-36.8) Seconds Sodium 137 (137-145) mmol/L Potassium 4.0 (3.4-5.0) mmol/L Chloride 101 (98-107) mmol/L Carbon Dioxide 27 (22-30) mmol/L Anion Gap 9 (4-12) mmol/L BUN 6 L (9-20) mg/dL Creatinine 0.80 (0.7-1.3) mg/dL Estim Creat Clear Calc 125 ml/min Estimated GFR > 60 (59 - ) Glucose 89 (65-110) mg/dL Calcium 8.8 (8.4-10.2) mg/dL Total Bilirubin 0.5 (0.2-1.3) mg/dL AST 36 (17-59) U/L ALT 32 (6-50) U/L Alkaline Phosphatase 95 (38-126) U/L Troponin I < 0.012 (0.000-0.034) ng/mL Total Protein 8.0 (6.3-8.2) g/dL Albumin 4.3 (3.5-5.1) g/dL Lipase 151 (23-300) U/L Imaging Data Attestation: I personally reviewed and interpreted this imaging study as follows: My impression: Impressions Chest X-Ray 10/29/24 18:52 IMPRESSION: No focal infiltrate or effusion. Chest/Abdomen/Pelvis CTA 10/29/24 18:57 IMPRESSION: Resolution of the previously identified pulmonary embolus. Nodular contour of the enlarged liver. No aneurysmal dilatation or dissection of the thoracic/abdominal aorta. ECG Data EKG #1: Attestation: I personally reviewed and interpreted this ECG as follows: ECG completion date: 10/29/24 ECG completion time: 17:49 Prior ECG tracings: available for review Interpretation: Normal sinus rhythm, no signs of ST segment elevations, depressions or inversions. No occlusive OR identified. Compared to previous EKG no significant interval changes. Regular rate rhythm an axis. Discharge Plan Discharge Clinical Impression: Atypical chest pain, Cirrhosis of liver, Esophagitis Patient Disposition: Home, Self-Care Condition: Stable Instructions: Antibiotic Form, Chest Pain (ED) Additional Instructions: Your cardiac workup and CT scans were very reassuring. Follow-up with regular doctor in GI specialist. Return with any new or worsening concerns at any time. Patient Language: Korean Prescriptions: No Action folic acid 1 mg tablet 1 mg PO DAILY Qty: 30 0RF thiamine HCl (vitamin B1) 100 mg Tablet 100 mg PO DAILY ferrous sulfate 325 mg (65 mg iron) Tablet 325 mg PO DAILY Xifaxan 550 mg tablet 550 mg PO BID spironolactone [Aldactone] 50 mg tablet 100 mg PO DAILY furosemide [Lasix] 20 mg tablet 60 mg PO BID sucralfate 100 mg/mL suspension 10 ml PO TID diclofenac sodium 1 % Gel 2 g TOPICAL BID PRN (Reason: Pain) Rx Instructions: ANYWHERE ON THE BODY magnesium oxide 400 mg tablet 400 mg PO HS propranolol 10 mg tablet 10 mg PO BID Eliquis DVT-PE Treat 30D Start 5 mg (74 tabs) tablets,dose pack See Rx Instructions .ROUTE .COMPLEX Qty: 74 0RF Rx Instructions: orally per package directions lidocaine [Aspercreme (lidocaine)] 4 % Adhesive Patch,Medicated 1 patch TOPICAL DAILY Rx Instructions: Apply to Rt. Upper quadrant of abdomen Lactobacillus acidophilus Tablet 1,000 mmu cells PO BID Biofreeze (menthol) 5 % Adhesive Patch,Medicated 1 patch TOPICAL DAILY Rx Instructions: 1 patch to abdomen haloperidol 5 mg tablet 2.5 mg PO BID gabapentin 400 mg capsule 400 mg PO TID simethicone 80 mg Tablet,Chewable 80 mg PO BID PRN (Reason: Abdominal Discomfort) vsmmnytk-oohpu-ykfnysm-diperod Ointment 1 ea TOPICAL QID lidocaine HCl [Aspercreme (lidocaine HCl)] 4 % cream 1 applic topical DAILY calcium carbonate [Antacid (calcium carbonate)] 200 mg calcium (500 mg) tablet,chewable 200 mg PO TID alum-mag hydroxide-simeth [Advanced Antacid-Antigas] 200-200-20 mg/5 mL suspension 30 ml PO QID PRN (Reason: indigestion) lorazepam 1 mg tablet 1 mg PO Q6H hydrocodone-acetaminophen 10-325 mg tablet 1 tablet PO Q6H PRN (Reason: pain) melatonin 3 mg Tablet 3 mg PO HS calcium carbonate 500 mg calcium (1,250 mg) Tablet,Chewable 500 mg PO TID Rx Instructions: With Meals cholecalciferol (vitamin D3) 125 mcg (5,000 unit) Tablet 125 mcg PO DAILY potassium chloride 20 mEq Tablet Extended Release 20 meq PO DAILY trazodone 50 mg tablet 50 mg PO QHS prazosin 1 mg capsule 1 mg PO QID ondansetron HCl 4 mg Tablet 4 mg PO Q8H PRN (Reason: nausea/vomiting) bupropion HCl 100 mg tablet 100 mg PO TID lactulose 10 gram/15 mL solution 30 ml PO TID buspirone 5 mg tablet 15 mg PO TID baclofen 10 mg tablet 10 mg PO BID hydroxyzine HCl 25 mg tablet 25 mg PO TID apixaban 5 mg tablet 5 mg PO BID Qty: 30 0RF Follow-up/Referrals: Teodoro Lopez MD [Primary Care Provider] - Time of Disposition: 19:53 Quality HEART score for chest pain patients History: slightly suspicious ECG: normal Age: < or = to 45 years Risk factors: > or = to 3 risk factors of atherosclerotic disease Troponin: < or = to 1x normal limit Heart score: 2
[2024-10-29] MEDS: ONDANSETRON INJ 4 MG/2 ML VIAL IV PUSH (18:46)
[2024-10-29] MEDS: FAMOTIDINE 20 MG/2 ML VIAL IV PUSH (18:46)
[2024-10-29] MEDS: MAG HYDROX/AL HYDROX/SIMETH 30 ML UDC PO (18:47)
[2024-10-29] MEDS: MORPHINE SULFATE (*CRX) 2 MG/ML INJ 4 MG IV PUSH (18:47)
[2024-10-30] MEDS: traZODone HCL 50 MG TABLET PO (01:31)
[2024-10-30] MEDS: HALOPERIDOL 5 MG TABLET 2.5 MG PO (01:31)
[2024-10-30] MEDS: HYDROcodone/acetaminophen (*CRX) 5-325 MG TABLET 1 TAB PO (01:31)
--- NOTE | 2024-10-30 01:34 | PC.NURSE ---
pt requesting nightly medications due to canceled transportation from [place]
[2024-10-30 02:45] VITALS: PULSE 84; RESP 13; O2SAT 96
[2024-10-30 04:23] VITALS: O2SAT 94
--- OUTSIDE RECORDS SUMMARY | 2024-11-05 08:49 | XMS_ITS | Encounter Summary ---
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 Office Visit [facility] - Orthopedic Surgery [address] [place] [address] Toño Cabrera MD [address] [address] 01/08/2025 8:00 AM CDT Appointment [facility] [address] [place] [phone] 01/08/2025 9:00 AM CDT Office Visit [facility] - GI [address] [facility], [place] [address] Amos Pabon MD [address] [place] [address] [place] [address] documented as of this encounter Goals Goal [...] on filedocumented in this encounter Care Teams Curing Machine Operator Relationship Specialty Start Date End Date Teodoro Lopez PCP - General 05/17/24 Eric Oconnell MD Hospitalist 10/10/21 documented as of this encounter
--- OUTSIDE RECORDS SUMMARY | 2024-11-05 08:49 | XMS_ITS | Encounter Summary ---
Author Organization [facility] Address [address] [facility] [place] [place] [address] Care Team Providers Care Brushing Operator Name Role Phone Eric Oconnell MD Unavailable [phone] Gregorio James MD Primary Care Provider [phone] Encounter Details Date Type Department Care Team [...] st Contact Info) Description 11/29/2024 8:30 AM PATTERN CHECKER Office Visit [facility] - Orthopedic Surgery [address] [facility] [place] [address] Toño Cabrera MD [address] [facility] [address] [place] [address] 01/08/2025 8:[address] [facility] [address] [place] [phone] 01/08/2025 9:00 AM CDT Office Visit [facility] - GI [address] [facility] [place] [phone] Amos Pabon MD [address] [place] [address] [address] [facility] [place] [address] documented as of this encounter Goals Goal [...] on filedocumented in this encounter Care Teams Brushing Operator Relationship Specialty Start Date End Date Gregorio James MD [address] [address] PCP - General 08/11/22 05/16/24 Eric Oconnell MD Hospitalist 10/10/21 documented as of this encounter
--- OUTSIDE RECORDS SUMMARY | 2024-11-05 08:49 | XMS_ITS | Encounter Summary ---
Author Organization [facility] Health Address [address] [facility] [place] [address] Care Team Providers Care Lumber Salvager Name Role Phone Eric Oconnell MD Unavailable [phone] Teodoro Lopez Primary Care Provider Unavailabl e Reason for Visit * Reason Comments Pain Knee Encounter Details Date Type Department Care Team (Latest Contact Info) Description 05/17/2024 11:00 AM CDT Office Visit [facility] - Orthopedic Surgery 1031 [place] [phone] Toño Cabrera MD 1031 [facility] 280 [place], [place] [phone] Primary osteoarthritis of both knees (Primary Dx) [...] Total Joint Reconstruction Dept of Orthopedic Surgery [facility] - [facility] PiCloud Messaging - Dr. Toño Cabrera Email: [email or web address] documented in this encounter Progress Notes * [...] CDTAssociated Order(s): PROC INJECTION JOINT (SMALL/INTERMED/MAJOR) Procedure(s): AZ DRAIN/INJECT LARGE JOINT/BURSA Pre-Procedure Diagnose(s): Primary osteoarthritis of both knees Orthopaedic Surgery Procedure Note Lukas Diaz [id number] Diagnosis: Left knee pain Procedure: Injection of [...] CDTAssociated Order(s): PROC INJECTION JOINT (SMALL/INTERMED/MAJOR) Procedure(s): AZ DRAIN/INJECT LARGE JOINT/BURSA Pre-Procedure Diagnose(s): Primary osteoarthritis of both knees Orthopaedic Surgery Procedure Note Lukas Diaz [id number] Diagnosis: Right knee pain Procedure: Injection of [...] Contact Info) Description 11/29/2024 8:30 AM METAL TECHNICIAN Office Visit [facility] - Orthopedic Surgery [address] [place] [address] Toño Cabrera MD 1031 [facility] 280 [place] [address] 01/08/2025 8:00 AM CDT Appointment [facility] 1201 [place] [phone] 01/08/2025 9:00 AM CDT Office Visit [facility] - GI 1225 [facility], [place] [address] Amos Pabon MD [address] [place] [address] [place] [address] documented as of this encounter Goals Goal [...] Procedure Name Priority Date/Time Associated Diagnosis Comments AZ DRAIN/INJECT LARGE JOINT/BURSA Routine 05/17/2024 3:13 PM CDT Primary osteoarthritis of both knees AZ DRAIN/INJECT LARGE JOINT/BURSA Routine 05/17/2024 3:12 PM CDT Primary osteoarthritis of both knees documented in this encounter Results * AZ DRAIN/INJECT LARGE JOINT/BURSA (05/17/2024 3:13 PM CDT) Narrative Toño Cabrera MD - 05/17/2024 3:13 PM CDT Toño Cabrera MD ? 05/17/2024 ??3:13 PM Orthopaedic Surgery Procedure Note Lukas Diaz [id number] Diagnosis: Left knee pain Procedure: Injection of [...] Cabrera MD PROCEDURE/MINOR TRUDI GICAL ORDERABLES * AZ DRAIN/INJECT LARGE JOINT/BURSA (05/17/2024 3:12 PM CDT) Narrative Toño Cabrera MD - 05/17/2024 3:12 PM CDT Toño Cabrera MD ? 05/17/2024 ??3:13 PM Orthopaedic Surgery Procedure Note Lukas Diaz [id number] Diagnosis: Right knee pain Procedure: Injection of [...] Knee documented in this encounter Care Teams Lumber Salvager Relationship Specialty Start Date End Date Teodoro Lopez PCP - General 05/17/24 Eric Oconnell MD Hospitalist 10/10/21 documented as of this encounter
--- OUTSIDE RECORDS SUMMARY | 2024-11-05 08:49 | XMS_ITS | Encounter Summary ---
Author Organization [facility] Address [address] [facility] [place] [address] Care Team Providers Care Home Designer Name Role Phone Eric Oconnell MD Unavailable [phone] Gregorio James MD Primary Care Provider [phone] Reason for Visit * Reason Onset Date Comments Follow-up 03/15/2024 Encounter Details Date Type Department Care Team (Late st Contact Info) Description 03/15/2024 Telephone [facility] - Nephrology 1225 [facility] [place] [phone] Ellyn Payne RN Follow-up Social History Tobacco [...] st Contact Info) Description 11/29/2024 8:30 AM LUNCHROOM SUPERVISOR Office Visit [facility] - [facility]opedic Surgery [address] [facility] [place] [place] [address] Toño Cabrera MD 1031 [facility] 280 [place] [address] 01/08/2025 8:00 AM CDT Appointment [facility] 1201 [place] [address] 01/08/2025 9:00 AM CDT Office Visit [facility] - GI 1225 [facility], [place] [address] Amos Pabon MD [address] [place] [address] documented as of this encounter Goals Goal [...] on filedocumented in this encounter Care Teams Home Designer Relationship Specialty Start Date End Date Gregorio James MD [address] [place] [phone] PCP - General 08/11/22 05/16/24 Eric Oconnell MD Hospitalist 10/10/21 documented as of this encounter
--- OUTSIDE RECORDS SUMMARY | 2024-11-05 08:49 | XMS_ITS | Encounter Summary ---
Author Organization [facility] Health Address [address] [facility] [place] [address] Care Team Providers Care Impression Printer Name Role Phone Eric Oconnell MD Unavailable [phone] Gregorio James MD Primary Care Provider [phone] Encounter Details Date Type Department Care Team (Late st Contact Info) Description 03/29/2024 Orders Only [facility] CARE COORDINATION 12[address] [place] [address] Kristen Dong, [facility] Social History Tobacco Use Types Packs/Day [...] st Contact Info) Description 11/29/2024 8:30 AM CENTERLESS GRINDER Office Visit [facility] - Orthopedic Surgery 10[address] [place] [address] Toño Cabrera MD [address] [address] 01/08/2025 8:00 AM CDT Appointment [facility] 1201 [place] [address] 01/08/2025 9:00 AM CDT Office Visit [facility] - GI 1225 [facility], [place] [address] Amos Pabon MD [address] [place] [address] [place] [address] documented as of this encounter Goals Goal [...] on filedocumented in this encounter Care Teams Impression Printer Relationship Specialty Start Date End Date Gregorio James MD [address] [address] PCP - General 08/11/22 05/16/24 Eric Oconnell MD Hospitalist 10/10/21 documented as of this encounter
--- OUTSIDE RECORDS SUMMARY | 2024-11-05 08:49 | XMS_ITS | Encounter Summary ---
Author Organization [facility] Address [address] [facility] [place] [address] Care Team Providers Care Certified Professional Midwife Name Role Phone Eric Oconnell MD Unavailable [phone] Gregorio James MD Primary Care Provider [phone] Reason for Visit * Reason Onset Date Comments MEDICATION REFILL 02/25/2024 Encounter Details Date Type Department Care Team (Late st Contact Info) Description 02/25/2024 Refill [facility] - GI [address] [place] [address], [place] [address] Amos Pabon MD [address] [place] [address] [place] [address] MEDICATION REFILL Social History Tobacco Use Types [...] st Contact Info) Description 11/29/2024 8:30 AM PRODUCTION REPAIRER Office Visit [facility] - Orthopedic Surgery [address] [facility] [place] [address] Toño Cabrera MD 1031 [facility] 280 [place] [address] 01/08/2025 8:00 AM CDT Appointment [facility] 1201 [place] [address] 01/08/2025 9:00 AM CDT Office Visit [facility] - GI [address] [place] [address], [place] [address] Amos Pabon MD [address] [place] [address] [place] [address] documented as of this encounter Goals Goal [...] filedocumented in this encounter Care Teams Certified Professional Midwife Relationship Specialty Start Date End Date Gregorio James MD [address] [phone] PCP - General 08/11/22 05/16/24 Eric Oconnell MD Hospitalist 10/10/21 documented as of this encounter
--- OUTSIDE RECORDS SUMMARY | 2024-11-05 08:49 | XMS_ITS | Encounter Summary ---
Author Organization [facility] Address [address] [facility] [place] [address] Care Team Providers Care National Service Officer Name Role Phone Eric Oconnell MD Unavailable [phone] Teodoro Lopez Primary Care Provider Unavailabl e Encounter Details Date Type Department Care Team (Latest Contact Info) Description 05/17/2024 11:00 AM CDT - 05/17/2024 11:59 PM CDT Hospital Encounter [facility] - Orthopedics [address] [place] [phone] Toño Cabrera MD [address] [place] [address] Discharge Disposition: Home or Self Care Social [...] mouth 3 times daily 05/28/2023 HYDROcodone-acetaminoph en (Rosebud) 5-325 MG tablet Take 1 (one) tablet [...] st Contact Info) Description 11/29/2024 8:30 AM ASPHALT DISTRIBUTOR OPERATOR Office Visit [facility] - Orthopedic Surgery [address] [facility] [place] [address] Toño Cabrera MD [address] [place] [address] 01/08/2025 8:00 AM CDT Appointment [facility] 1201 [place] [address] 01/08/2025 9:00 AM CDT Office Visit [facility] - GI 1225 [facility], [place] [address] Amos Pabon MD [address] [place] [address] documented as of this encounter Goals Goal [...] OF EXAM: ??05/17/2024 12:11 PM, LOCATION ??[facility] INDICATION: M17.0: Bilateral primary osteoarthritis of knee. FINDINGS: ?? There is overall preservation of vertebral body height. Left convex scoliosis centered at L3-4 is present. The visualized sacroiliac joints are normal. DIAGNOSIS: Left convex scoliosis. Edited by Caorlina Brown on 05/17/2024 1:03 PM > Interpreting Provider: Sagar Rizo MD on 05/17/2024 1:19 PM Procedure Note Sagar Rizo MD - 05/17/2024 PROCEDURE: XR LUMBAR SPINE 3VW, DATE/TIME OF EXAM: 05/17/2024 12:11 PM, LOCATION [facility] INDICATION: M17.0: Bilateral primary osteoarthritis of [...] leg documented in this encounter Care Teams National Service Officer Relationship Specialty Start Date End Date Teodoro Lopez PCP - General 05/17/24 Eric Oconnell MD Hospitalist 10/10/21 documented as of this encounter
--- OUTSIDE RECORDS SUMMARY | 2024-11-05 08:49 | XMS_ITS | Encounter Summary ---
Author Organization [facility] Address [address] [place] [address] Care Team Providers Care Research Kennel Supervisor Name Role Phone Eric Oconnell MD Unavailable [phone] Gregorio James MD Primary Care Provider [phone] Reason for Referral * Radiology Services (Routine) - Closed Specialty Diagnoses / Procedures Referred By Rod young Referred To Contact Ultrasound Diagnoses Cirrhosis of liver with ascites, unspecified hepatic cirrhosis type (HCC) Procedures US ABDOMEN LIMITED Klarissa Rutledge APRN-CNP [address]25 [facility] 3[place] [address] [address] [place] [address] Referral ID Status Reason Start Date Expiration Date Visits Re quested Visits Authorized [id number] Closed 02/19/2023 02/19/2024 1 1 Reason for Visit * Radiology Services (Routine) - Closed Specialty Diagnoses / Procedures Referred By Contmegan young Referred To Contact Ultrasound Diagnoses Cirrhosis of liver with ascites, unspecified hepatic cirrhosis type (HCC) Procedures US ABDOMEN LIMITED Klarissa Rutledge APRN-CNP [address] [facility] 3[place] [address] [facility] Us [facility]1 [place] [address] Referral ID Status Reason Start Date Expiration Date Visits Re quested Visits Authorized [id number] Closed 02/19/2023 02/19/2024 1 1 Encounter Details Date Type Department Care Team (Tracy st Contact Info) Description 08/25/2023 7:53 AM CDT - 08/25/2023 11:59 PM CDT Hospital Encounter [facility] 1201 [place] [address] Klarissa Rutledge, SERVICING MANAGER-INDUSTRIAL LOCOMOTIVE OPERATOR 1225 [facility] [place] [address] Discharge Disposition: Home or Self Care Social [...] st Contact Info) Description 11/29/2024 8:30 AM CAFE SERVER Office Visit [facility] - Orthopedic Surgery 1031 [place] [address] Toño Cabrera MD 1031 [facility] 280 [place] [address] 01/08/2025 8:00 AM CDT Appointment [facility] 1201 [place] [address] 01/08/2025 9:00 AM CDT Office Visit [facility] - GI 1225 [facility], [place] [address] Amos Pabon MD [address] [place] [address] [place] [address] documented as of this encounter Goals Goal [...] months. Report dictated by Hany Cornelius MD, (residential tech). I, Bina Perez MD have personally reviewed and interpreted this examination/study. > Interpreting Provider: Bina Perez MD on 08/25/2023 10:18 AM Narrative 08/25/2023 10:18 AM CDT PROCEDURE: ??US ABDOMEN LIMITED, DATE/TIME OF EXAM: ??08/25/2023 7:53 AM, LOCATION ??[facility] INDICATION: K74.60: Cirrhosis of liver with [...] DATE/TIME OF EXAM: 08/25/2023 7:53 AM, LOCATION [facility] INDICATION: K74.60: Cirrhosis of liver with [...] months. Report dictated by Hany Cornelius MD, (residential tech). I, Bina Perez MD have personally reviewed and interpreted this examination/study. > Interpreting Provider: Bina Perez MD on 08/25/2023 10:18 AM Klarissa Rutledge SERVICING MANAGER-INDUSTRIAL LOCOMOTIVE OPERATOR US ORDERABL ES documented in this encounter Visit Diagnoses Diagnosis Cirrhosis of liver with ascites, unspecified hepatic cirrhosis type (HCC) documented in this encounter Care Teams Research Kennel Supervisor Relationship Specialty Start Date End Date Gregorio James MD [address] [place] [phone] PCP - General 08/11/22 05/16/24 Eric Oconnell MD Hospitalist 10/10/21 documented as of this encounter
--- OUTSIDE RECORDS SUMMARY | 2024-11-05 08:49 | XMS_ITS | Encounter Summary ---
Author Organization [facility] Address [address] [facility] [place] [address] Care Team Providers Care Straight Cutter Name Role Phone Eric Oconnell MD Unavailable [phone] Gregorio James MD Primary Care Provider [phone] Reason for Referral * Durable Medical Equipment (Routine) - Closed Specialty Diagnoses / Procedures Referred By Rod young Referred To Contact DME Services Diagnoses Primary osteoarthritis of both knees Closed fracture of left hip, sequela Toño Cabrera MD [address] [place] [address] Referral ID Status Reason Start Date Expiration Date V isits Requested Visits Authorized [id number] Closed Specialty Services Required 02/16/2024 02/15/2025 1 1 Reason for Visit * Reason Comments Therapeutic Injection Bilat knee injecti on Encounter Details Date Type Department Care Team (Latest Contact Info) Description 02/16/2024 10:45 AM CDT Office Visit [facility] - Orthopedic Surgery [address] [place] [phone] Toño Cabrera MD [address] [place] [address] Primary osteoarthritis of both knees (Primary [...] Total Joint Reconstruction Dept of Orthopedic Surgery [facility] - [facility] Energy Excelerator Messaging - Dr. Toño Cabrera Email: [email or web address] documented in this encounter Progress Notes * [...] knees Orthopaedic Surgery Procedure Note Lukas Diaz [id number] Diagnosis: Left knee pain Procedure: Injection of [...] knees Orthopaedic Surgery Procedure Note Lukas Diaz [id number] Diagnosis: Right knee pain Procedure: Injection of [...] st Contact Info) Description 11/29/2024 8:30 AM RAIL SWITCH OPERATOR Office Visit [facility] - Orthopedic Surgery [address] [place] [phone] Toño Cabrera MD [address] [place] [address] 01/08/2025 8:00 AM CDT Appointment [facility] 1201 [place] [address] 01/08/2025 9:00 AM CDT Office Visit [facility] - GI 1225 [facility], [place] [address] Amos Pabon MD 1225 [facility] 2L [place] [address] Scheduled Referrals Name Type Priority Associated Diagnoses [...] AM Orthopaedic Surgery Procedure Note Lukas Diaz [id number] Diagnosis: Left knee pain Procedure: Injection of [...] AM Orthopaedic Surgery Procedure Note Lukas Diaz [id number] Diagnosis: Right knee pain Procedure: Injection of [...] Knee documented in this encounter Care Teams Straight Cutter Relationship Specialty Start Date End Date Gregorio James MD [address] [address] PCP - General 08/11/22 05/16/24 Eric Oconnell MD Hospitalist 10/10/21 documented as of this encounter
--- OUTSIDE RECORDS SUMMARY | 2024-11-05 08:49 | XMS_ITS | Encounter Summary ---
Author Organization [facility] Health Address [address] [place] [address] Care Team Providers Care Cook Taco Name Role Phone Eric Oconnell MD Unavailable [phone] Gregorio James MD Primary Care Provider [phone] Encounter Details Date Type Department Care Team [...] Contact Info) Description 11/29/2024 8:30 AM SUPERVISOR NURSE Office Visit [facility] - Orthopedic Surgery 1031 [place] [address] Toño Cabrera MD [address] [address] 01/08/2025 8:[address] [facility] 1201 [place] [address] 01/08/2025 9:00 AM CDT Office Visit [facility] - GI 1225 [facility], [place] [address] Amos Pabon MD [address] [place] [address] [place] [address] documented as of this encounter Goals Goal [...] filedocumented in this encounter Care Teams Cook Taco Relationship Specialty Start Date End Date Gregorio James MD [address] [place] [phone] PCP - General 08/11/22 05/16/24 Eric Oconnell MD Hospitalist 10/10/21 documented as of this encounter
--- OUTSIDE RECORDS SUMMARY | 2024-11-05 08:49 | XMS_ITS | Encounter Summary ---
Author Organization [facility] Address [address] [facility] [place] [address] Care Team Providers Care Rf Design Engineer Name Role Phone Eric Oconnell MD Unavailable [phone] Teodoro Lopez Primary Care Provider Unavailabl e [...] st Contact Info) Description 11/29/2024 8:30 AM SORT SUPERVISOR Office Visit [facility] - Orthopedic Surgery 1031 [place] [address] Toño Cabrera MD [address] [address] 01/08/2025 8:00 AM CDT Appointment [facility] 1201 [place] [address] 01/08/2025 9:00 AM CDT Office Visit [facility] - GI 1225 [facility], [place] [address] Amos Pabon MD [address] [place] [address] [place] [address] documented as of this encounter Goals Goal [...] on filedocumented in this encounter Care Teams Rf Design Engineer Relationship Specialty Start Date End Date Teodoro Lopez PCP - General 05/17/24 Eric Oconnell MD Hospitalist 10/10/21 documented as of this encounter
--- OUTSIDE RECORDS SUMMARY | 2024-11-05 08:49 | XMS_ITS | Encounter Summary ---
Author Organization [facility] Health Address [address] [facility] [place] [address] Care Team Providers Care Electronic Test Technician Name Role Phone Eric Oconnell MD Unavailable [phone] Gregorio James MD Primary Care Provider [phone] Reason for Visit * Reason Onset Date Comments Results 08/27/2023 Encounter Details Date Type Department Care Team (Late st Contact Info) Description 08/27/2023 Telephone [facility] - 1225 [place] [phone] Sheridan Ng, RN Results Social History Tobacco [...] st Contact Info) Description 11/29/2024 8:30 AM FIXER SUPERVISOR Office Visit [facility]ician Group - Orthopedic Surgery [address] [place] [address] Toño Cabrera MD 1031 [facility] 280 [place] [address] 01/08/2025 8:[address] [facility] 1201 [place] [address] 01/08/2025 9:00 AM CDT Office Visit [facility] Group - GI 1225 [facility], [place] [address] Amos Pabon MD [address] [place] [address] [place] [address] documented as of this encounter Goals Goal [...] on filedocumented in this encounter Care Teams Electronic Test Technician Relationship Specialty Start Date End Date Gregorio James MD [address] [place] [phone] PCP - General 08/11/22 05/16/24 Eric Oconnell MD Hospitalist 10/10/21 documented as of this encounter
--- OUTSIDE RECORDS SUMMARY | 2024-11-05 08:49 | XMS_ITS | Encounter Summary ---
Author Organization [facility] Address [address] [facility] [place] [address] Care Team Providers Care [place] Soundings Group Leader Name Role Phone Eric Oconnell MD Unavailable [phone] Gregorio James MD Primary Care Provider [phone] Reason for Visit * Reason Comments Future Appointment 03/14/24 - Tried to c all pt to let him know that appt with Dr. Pabon on 05/08 needed to be rescheduled to 05/19 along with ultrasound. Sent letter.~Stacey Hopson Encounter Details Date Type Department Care Team (Late st Contact Info) Description 03/14/2024 Telephone [facility] 3L 1225 [facility], [place] [address] Amos Pabon MD [employer] [place] [address] Future Appointment (03/14/24 - Tried [...] st Contact Info) Description 11/29/2024 8:30 AM CRITICAL CARE NURSE Office Visit [facility] - Orthopedic Surgery 1031 [place] [phone] Toño Cabrera MD [address] [address] 01/08/2025 8:00 AM CDT Appointment [facility] 1201 [place] [address] 01/08/2025 9:00 AM CDT Office Visit [facility] - GI 1225 [facility], [place] [address] Amos Pabon MD 1225 [facility] 2L [place] [address] documented as of this encounter Goals Goal [...] on filedocumented in this encounter Care Teams [employer] [place] [employer] Group Leader Relationship Specialty Start Date End Date Gregorio James MD [address] [place] [phone] PCP - General 08/11/22 05/16/24 Eric Oconnell MD Hospitalist 10/10/21 documented as of this encounter
--- OUTSIDE RECORDS SUMMARY | 2024-11-05 08:49 | XMS_ITS | Encounter Summary ---
Author Organization [facility] Health Address [address] [place] [address] Care Team Providers Care Splitting Machine Operator Name Role Phone Eric Oconnell MD Unavailable [phone] Gregorio James MD Primary Care Provider [phone] Encounter Details Date Type Department Care Team [...] st Contact Info) Description 11/29/2024 8:30 AM POULTRY BONER Office Visit [facility] - Orthopedic Surgery [address] [place] [address] Toño Cabrera MD [address] [address] 01/08/2025 8:00 AM CDT Appointment [facility] [address] [place] [phone] 01/08/2025 9:00 AM CDT Office Visit [facility]ician [facility] - GI [address] [facility], [place] [phone] Amos Pabon MD [address] [place] [address] [place] [address] documented as of this encounter Goals Goal [...] on filedocumented in this encounter Care Teams Splitting Machine Operator Relationship Specialty Start Date End Date Gregorio James MD [address] [place] [phone] PCP - General 08/11/22 05/16/24 Eric Oconnell MD Hospitalist 10/10/21 documented as of this encounter
--- OUTSIDE RECORDS SUMMARY | 2024-11-05 08:49 | XMS_ITS | Encounter Summary ---
Author Organization [facility] Health Address [address] [facility] [place] [address] Care Team Providers Care Relays Draftsperson Name Role Phone Eric Oconnell MD Unavailable [phone] Gregorio James MD Primary Care Provider [phone] Teodoro Lopez Primary Care Provider Unavailabl e Encounter Details Date Type Department Care Team (Late st Contact Info) Description 05/01/2024 Telephone [facility] - [address] [facility], [place] [address] Nahed Quinonez, ALFREDO Social History [...] need for new PA for Xifaxan. Reports [facility] denies pt need for Xifiaxan while taking lactulose. RN place request for pt assistance renewal for pt. New med list including both medications sent to facility. [facility] notified for pt assistance renewal. documented in this encounter Plan of Treatment Upcoming Encounters Date Type Department Care Team (Late st Contact Info) Description 11/29/2024 8:30 AM BREAKER UP Office Visit [facility]ician [facility] - Orthopedic Surgery [address] [place] [address] Toño Cabrera MD 1031 [facility] [address] [place] [address] 01/08/2025 8:00 AM CDT Appointment [facility] [address] [place] [phone] 01/08/2025 9:00 AM CDT Office Visit [facility] - GI [address] [place] [address], [place] [phone] Amos Pabon MD [address] [place] [address] [place] [address] documented as of this encounter Goals Goal [...] on filedocumented in this encounter Care Teams Relays Draftsperson Relationship Specialty Start Date End Date Gregorio James MD [address] [place] [phone] PCP - General 08/11/22 05/16/24 Teodoro Lopez PCP - General 05/17/24 Eric Oconnell MD Hospitalist 10/10/21 documented as of this encounter
--- OUTSIDE RECORDS SUMMARY | 2024-11-05 08:49 | XMS_ITS | Encounter Summary ---
Author Organization [facility] Health Address [address] [facility] [place] [address] Care Team Providers Care Liability Analyst Name Role Phone Eric Oconnell MD Unavailable [phone] Gregorio James MD Primary Care Provider [phone] Encounter Details Date Type Department Care Team [...] st Contact Info) Description 11/29/2024 8:30 AM EMPLOYMENT TRAINER Office Visit [facility] Physician Group - Orthopedic Surgery [address] [place] [address] Toño Cabrera MD [address] [address] 01/08/2025 8:00 AM CDT Appointment [facility] [address] [place] [phone] 01/08/2025 9:00 AM CDT Office Visit [facility]ician Group - GI [address] [facility], [place] [phone] Amos Pabno MD [address] [place] [address] [place] [address] documented as of this encounter Goals Goal [...] on filedocumented in this encounter Care Teams Liability Analyst Relationship Specialty Start Date End Date Gregorio James MD [address] [place] [phone] PCP - General 08/11/22 05/16/24 Eric Oconnell MD Hospitalist 10/10/21 documented as of this encounter
--- OUTSIDE RECORDS SUMMARY | 2024-11-05 08:49 | XMS_ITS | Referral Summary ---
Author Organization [facility] Address [address] [facility] [place] [address] Care Team Providers Care Crib Attendant Name Role Phone Eric Oconnell MD Unavailable [phone] Teodoro Lopez Primary Care Provider Unavailabl e Source Comments [facility],non-owned Affiliates and Associated Physician Practices is amultiple site organization consisting of ambulatory clinics and hospital sitesin [place], [place], [place] and [place]. This disclosure is being madepursuant to the Care Everywhere program and may not contain all information available regarding this patient. Last updated 18.[facility] Encounters Date Type Department Care Team Description [...] affected area as needed Active HYDROcodone-acetamin ophen ([place]) 5-325 MG tablet Take 1 (one) tablet [...] Contact Info) Description 11/29/2024 8:30 AM INDUSTRIAL ENG Office Visit [facility] Group - Orthopedic Surgery [address] [place] [phone] Toño Cabrera MD 1031 [facility] [address] [place] [address] 01/08/2025 8:00 AM CDT Appointment [address] [phone] 01/08/2025 9:00 AM CDT Office Visit [facility] - GI [address] [facility], [place] [phone] Amos Pabon MD [facility] [place] [address] Goals Goal Patient Goal Type Associated Problems [...] HEPATITIS C ANTIBODY Routine 10/01/2021 11:38 AM INDUSTRIAL ENG Cirrhosis of liver with ascites, unspecified hepatic cirrhosis type (HCC) from Last 3 Months or Most Recently Relevant to Health Maintenance Results * (ABNORMAL) COMPREHENSIVE METABOLIC PANEL (03/29/2024 4:30 AM CDT) BUN 10 7 - 26 mg/dL 03/29/2024 5:09 AM [facility] Creatinine 0.84 0.71 - 1.16 mg/dL 03/29/2024 5:09 AM [facility] Sodium 135(L) 136 - 145 mmol/L 03/29/2024 5:09 AM [facility] Potassium 3.8 3.5 - 4.5 mmol/L 03/29/2024 5:09 AM [facility] Chloride 105 98 - 107 mmol/L 03/29/2024 5:09 AM [facility] CO2 22 22 - 29 mmol/L 03/29/2024 5:09 AM [facility] Glucose 87 70 - 115 mg/dL 03/29/2024 5:09 AM [facility] Calcium 9.6 8.4 - 10.2 mg/dL 03/29/2024 5:09 AM [facility] Protein Total 7.6 6.0 - 8.3 g/dL 03/29/2024 5:09 AM [facility] Albumin 3.8 3.4 - 5.0 g/dL 03/29/2024 5:09 AM [facility] Bilirubin Total 0.9 0.2 - 1.2 mg/dL 03/29/2024 5:09 AM [facility] Alkaline Phosphatase 81 40 - 150 U/L 03/29/2024 5:09 AM [facility] ALT 20 5 - 55 U/L 03/29/2024 5:09 AM [facility] AST 17 5 - 34 U/L 03/29/2024 5:09 AM [facility] Anion Gap 8 6 - 16 03/29/2024 5:09 AM [facility] BUN/Creatinine Ratio 12 7 - 23 03/29/2024 5:09 AM [facility] Osmolality Calculated 278 275 - 295 mOsm/kg 03/29/2024 5:09 AM [facility] Albumin/Globulin Ratio 1.0(L) 1.1 - 2.3 03/29/2024 5:09 AM [facility] eGFR by CKD-EPI >90 >=90 mL/min/1.7 3 m2 03/29/2024 5:09 AM [facility] Blood BLOOD SPECIMEN / Unknown Lab Venipuncture / Unknown 03/29/2024 4:30 [facility] 03/29/2024 4:41 AM [facility] Isaak Ibrahim MD LAB - CHEMISTRY KURT ZARAGO[facility] Organization Address City/State/ZIP Co de Phone Number [facility] [address] [place] [phone], [facility] [phone] * HEPATITIS C ANTIBODY (10/01/2021 11:38 AM INDUSTRIAL ENG) Hepatitis C Antibody Non-react young Non-reac tive 10/01/2021 1:14 PM INDUSTRIAL ENG [facility] Comment:Hepatitis C Antibody screen indicates no serologic evidence of past or current infection with Hepatitis C Virus. Patients with unexplained liver disease who are immunocompromised or suspected of having acute Hepatitis C infection may benefit from Nucleic Acid Test (MARIBELL) for Hepatitis C Viral RNA to confirm Hepatitis C status. Blood BLOOD SPECIMEN / Unknown Lab Venipuncture / Unknown 10/01/2021 11:38 AM INDUSTRIAL ENG 10/01/2021 11:46 AM INDUSTRIAL ENG Amos Pabon MD LAB - CHEMISTRY KURT ZARAGOZA [facility] [address] [place] [address], [facility] [phone] from Last 3 Months or Most Recently Relevant to Health Maintenance Advance Directives * Full Code (Latest Code Status on File) Date Activated Date Inactivated Comments 03/29/2024 12:13 AM 03/29/2024 11:54 PM Care Teams Crib Attendant Relationship Specialty Start Date End Date Teodoro Lopez PCP - General 05/17/24 Eric Oconnell MD Hospitalist 10/10/21
--- OUTSIDE RECORDS SUMMARY | 2024-11-05 08:49 | XMS_ITS | Encounter Summary ---
Author Organization [facility] Address [address] [facility] [address] [place] [address] Care Team Providers Care Collar Turner Name Role Phone Eric Oconnell MD Unavailable [phone] Teodoro Lopez Primary Care Provider Unavailabl e [...] st Contact Info) Description 11/29/2024 8:30 AM CUTCH CLEANER Office Visit [facility] Physician Group - Orthopedic Surgery [address] [place] [address] Toño Cabrera MD [address] [address] 01/08/2025 8:00 AM CDT Appointment [facility] [address] [place] [phone] 01/08/2025 9:00 AM CDT Office Visit [facility] Physician Group - GI [address] [facility], [place] [phone] Amos Pabon MD [address] [place] [address] [place] [address] documented as of this encounter Goals Goal [...] on filedocumented in this encounter Care Teams Collar Turner Relationship Specialty Start Date End Date Teodoro Lopez PCP - General 05/17/24 Eric Oconnell MD Hospitalist 10/10/21 documented as of this encounter
--- OUTSIDE RECORDS SUMMARY | 2024-11-05 08:49 | XMS_ITS | Encounter Summary ---
Author Organization [facility] Address [address] [facility] [place] [address] Care Team Providers Care Network Systems Administrator Name Role Phone Eric Oconnell MD Unavailable [phone] Gregorio James MD Primary Care Provider [phone] Reason for Visit * Reason Comments Pain Abdominal Pt arrives via EMS d ue to RUQ pain. Pt is a resident of [facility] in [facility]. Pt states 2 days ago he was seen an [facility], but hey could not provide care. [...] Expiration Date Visits Re quested Visits Authorized [id number] 1 1 Encounter Details Date Type Department Care Team (Latest Contact Info) Description 03/28/2024 10:21 PM CDT - 03/29/2024 9:35 PM CDT Emergency [facility] EMERGENCY DEPARTMENT [address] [place] [id number] Isaak Ibrahim MD [address] [place] [address] Tony Gonzales MD [address] [place] [address] Agusto Oswald MD [address] [place] [address] Gastrointestinal hemorrhage with melena (Primary Dx); Shortness [...] Wyatt MD - 03/29/2024 2:07 PM CDT [facility] INTERNAL MEDICINE DISCHARGE SUMMARY PATIENT: Lukas Diaz [...] negative for acute process. Patient admitted to [facility] for further management. Following morning pain improved workup negative and stable to discharge back to long term. Communication provided for dentist to remove teeth [...] head. > Dictated by Chad Francisco, DO (residential sales manager). I, Ramiro Naranjo MD have personally reviewed [...] Neuro: No focal deficits DISCHARGE PLANNING Disposition: senior care Patient Instructions: Medication List START taking these [...] HYDROcodone-acetaminophen 5-325 MG tablet Commonly known as: Pateros hydrOXYzine HCl 25 MG tablet Commonly known [...] Your Medications These medications were sent to [facility] - [address] [place] [address] [address] [facility] [place] [address] lidocaine 5 % patch You can get these medications from any pharmacy You don't need a prescription for these medications simethicone 80 MG chew tablet Discharge Instructions DISCHARGE INSTRUCTIONS? A MESSAGE FROM YOUR DOCTORS:?? Dear Lukas Diaz,? You were admitted for abdominal pain, workup was largely unremarkable including imaging and blood work. Please follow up with your PCP and academic advisement director ? DISCHARGE MEDICATIONS:? Medication List START taking [...] HYDROcodone-acetaminophen 5-325 MG tablet Commonly known as: Pateros hydrOXYzine HCl 25 MG tablet Commonly known [...] Your Medications These medications were sent to [facility] - [address] [place] [address] [address] [place] [address] lidocaine 5 % patch You can get [...] medications, please ask the pharmacy when you machine pecan picker your prescription. You may also call your primary provider if you still have questions.? ? 2. FOLLOW-UP:? A) Below are your scheduled appointments? Future Appointments Friday May 17, 2024 11:00 AM (Arrive by 10:45 AM) Appointment with Toño Cabrera at [facility] - Orthopedic Surgery ([phone]) [address] [facility] [address] Sunday May 19, 2024 8:00 AM Appointment with [facility] 2 at [facility] ([phone]) [address] [facility] [address] Sunday May 19, 2024 9:00 AM Appointment with Amos Pabon at [facility] - GI ([phone]) [address] [facility], Third Level [facility] [address] ? -If you are not going home but to Rehab or [facility], ask the providers there about going to [...] in your care!? ? Internal Medicine Team? [facility] [address] [facility]? [place] [address]? Signed: Baltazar Wyatt MD Internal Medicine Resident [facility] 03/29/2024 2:07 PM Associated attestation [...] Please follow up with your PCP and academic advisement director ? DISCHARGE MEDICATIONS:? Medication List START taking [...] HYDROcodone-acetaminophen 5-325 MG tablet Commonly known as: Pateros hydrOXYzine HCl 25 MG tablet Commonly known [...] Your Medications These medications were sent to [facility] - [address] [place] [address] [place], [place] [address] [address] lidocaine 5 % patch You can get [...] medications, please ask the pharmacy when you machine pecan picker your prescription. You may also call your primary provider if you still have questions.? ? 2. FOLLOW-UP:? A) Below are your scheduled appointments? Future Appointments Friday May 17, 2024 11:00 AM (Arrive by 10:45 AM) Appointment with Toño Cabrera at [facility] - Orthopedic Surgery ([phone]) [address] [facility] [address] Sunday May 19, 2024 8:00 AM Appointment with [facility] 2 at [facility] ([phone]) [address] [facility] [address] Sunday May 19, 2024 9:00 AM Appointment with Amos Pabon at [facility] - GI ([phone]) [address] [facility] Third Level [facility] [address] ? -If you are not going home but to Rehab or [facility], ask the providers there about going to [...] in your care!? ? Internal Medicine Team? [facility] [address] [facility]? [place] [address]? documented in this encounter Medications at Time [...] mouth 3 times daily 05/28/2023 HYDROcodone-acetaminoph en (Pateros) 5-325 MG tablet Take 1 (one) tablet [...] - 03/29/2024 2:[address] [facility] Physical Medicine and Rehabilitation Occupational Therapy Initial Evaluation Note Patient: Lukas Diaz [facility] Record Number: [id number] Date of : 1985 Age: [age] year [...] just want to get back to the long term to keep rehabbing PATIENT GOALS: Patient's Primary Concern: Return to facility Home Situation: Type of Residence: [facility] Equipment at Home: Wheelchair-Standard;Walker-2 Wheeled Prior Level [...] date. Bed Mobility: Supine to Sit: Complete [place] with HOB in semi-fowlers position Sit to Supine: Complete [place] Transfers: Sit to Stand: Stand By Assist [...] IP Occupational Therapy indicated at this time. [facility] Goal(s): Patient to be baseline with functional [...] - 03/29/2024 2:[address] [facility] Physical Medicine and Rehabilitation Physical Therapy Initial Evaluation Note Patient: Lukas Diaz Med Record Number: [id number] Date of : 1985 Age: [age] year [...] PATIENT GOALS: Patient's Primary Concern: Return to [place] Home Situation: Type of Residence: [facility] Equipment at Home: Wheelchair-Standard;Walker-2 Wheeled Prior Level [...] date. Bed Mobility: Supine to Sit: Complete [place] with HOB in semi-fowlers position Sit to Supine: Complete [place] Transfers: Sit to Stand: Stand By Assist [...] sit to/from stand with stand by assist [facility] Goal(s): Patient to be baseline with functional [...] bed, with call light within reach, with RNyAaz aware,with therapy cues visible on white board. documented in this encounter H&P Notes * Kristen Dong LCSW - 03/29/2024 2:54 PM CDT Facility Transfer Note Level of Care: Rehab Care Payor Source: Medicare Facility Name: [facility]: RN Call Report to:[phone] Transportation (company and number): [employer]: [phone] Certificate of Medical Necessity rationale: 03/29/2024 2:57 PM Patient discharged to SNF under Medicare SNF 3-day waiver? No Comments:EMS ETA 2100 Name/Phone number: Kristen Dong LCSW * Shira Lainez MD - 03/29/2024 12:16 AM CDT [facility] Gastroenterology Hepatology History & Physical 03/29/2024 at 12:16 AM Patient Name: Lukas Diaz (38 year old) Room Number: C07/C07 Chief Complaint Patient presents with Pain Abdominal Pt arrives via EMS due to RUQ pain. Pt is a resident of [facility] in [facility]. Pt states 2 days ago he was seen an [facility], but shay could not provide care. [...] CTAP, pending final read. Patient admitted to [facility] service for further management, plan for [...] , CKMBCK2 , TROPONINI in the last 09[address] hours. 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 * Mikey Cruz RN - 03/29/2024 1:56 AM CDT Bed: [facility] Expected date: Expected time: Means of arrival: Comments: C1 * Vamsi Sellers MD - 03/28/2024 11:09 PM CDT [facility] Emergency Department Emergency Medicine Resident Note Chief Complaint Patient presents with Pain Abdominal Pt arrives via EMS due to RUQ pain. Pt is a resident of [facility] in [facility]. Pt states 2 days ago he was seen an [facility], but hey could not provide care. [...] evaluated, available studies reviewed and interpreted by fl ED Course as of 03/29/24 0459 WedMar [...] also appeared to be trembling. CRN and ad trafficker were notified and ad trafficker reassessed pt immediately following. * Lauren Welch [...] 10:15 PM CDT This RN called by quality analyst/technical writer as pt stated to tech that he was experiencing hallucinations. Pt reporting that he is seeing spiders at this time and hearing voices. Denies SI or HI. Endorses psych hx, hasnot had his ativan or other anxiety meds. CSN notified and pt being taken back to room. * Toño Huitron, Graduate Nurse - 03/28/2024 7:16 PM CDT Tech approached service writer advisor and stated that pt approached them to [...] RUQ pain. Pt is a resident of [facility]. Pt states 2 days ago he was seen an [facility], but hey could not provide care. [...] in rehab for those conditions. Went to [facility], no help. Told by GI to come to ED here. +N/V. BM constipated, dark streaks. 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 Dark yellow. Has not drank alcohol in [...] capsule by mouth 3 times daily HYDROcodone-acetaminophen (Pateros) 5-325 MG tablet Take 1 (one) tablet [...] st Contact Info) Description 11/29/2024 8:30 AM INSTRUCTOR MILITARY SCIENCE Office Visit [facility] - Orthopedic Surgery [address] [place] [phone] Toño Cabrera MD [address] [facility] [address] [place] [address] 01/08/2025 8:00 AM CDT Appointment [address] [address] 01/08/2025 9:00 AM CDT Office Visit [facility] - GI [address] [facility] [place] [phone] Amos Pabon MD [facility] [address] [place] [address] documented as of this encounter Goals Goal [...] 11:59 PM CDT Shortness of breath PT-INR [facility] STAT 03/28/2024 7:13 PM CDT DIFFERENTIAL MANUAL [...] (mg/dL) <10 <10 mg/dL 12:36 PM CDT [facility] Ethanol Calculated (g/dL) <0.010 <=0.010 g/dL 03/29/2024 12:36 PM CDT [facility] Blood BLOOD SPECIMEN / Unknown Venipuncture / Unknown 03/29/2024 12:08 PM CDT 03/29/2024 12:16 PM CDT Narrative [facility] - 03/29/2024 12:36 PM CDT Ethanol Interp <10: None Detected. Depression of [employer]: >100 mg/dl Potentially Critical: >250 mg/dl Potentially [...] - CHEMISTR Y ORDERABLES Performing Organization Address [facility] Co de Phone Number [address] [address], [facility] [phone] * CULTURE BLOOD (03/29/2024 4:31 AM CDT) [facility] Culture No growth day 5 DEVAUGHN 04/03/2024 8:01 AM CDT [facility] Blood PERIPHERAL BLOOD / Unknown Lab Venipuncture / Unknown 03/29/2024 4:31 AM CDT 03/29/2024 4:37 AM CDT Isaak Ibrahim MD LAB - MICROBIOLOGY O RDERABLES Performing Organization Address [facility] de Phone Number [facility] [address] [place] [address], [facility] [phone] * PHOSPHORUS BLOOD (03/29/2024 4:30 AM CDT) Phosphorus 2.9 2.8 - 5.1 mg/dL 03/29/2024 5:09 AM CDT [facility] Blood BLOOD SPECIMEN / Unknown Lab Venipuncture / Unknown 03/29/2024 4:30 AM CDT 03/29/2024 4:41 AM CDT Isaak Ibrahim MD LAB - CHEMISTRY KURT ZARAGOZA Performing Organization Address [facility] Co de Phone Number [address] [address], [place] [phone] * MAGNESIUM BLOOD (03/29/2024 4:30 AM CDT) Pathologist [facility] Magnesium 2.1 1.6 - 2.6 mg/dL 03/29/2024 5:09 AM [facility] Blood BLOOD SPECIMEN / Unknown Lab Venipuncture / Unknown 03/29/2024 4:30 AM CDT 03/29/2024 4:41 AM CDT Isaak Ibrahim MD LAB - CHEMISTRY KURT ZARAGOZA [facility] Organization Address City/State/ZIP Co de Phone Number [facility] [address] [place] [address] [phone] * (ABNORMAL) COMPREHENSIVE METABOLIC PANEL (03/29/2024 4:30 AM CDT) BUN 10 7 - 26 mg/dL 03/29/2024 5:09 AM [facility] Creatinine 0.84 0.71 - 1.16 mg/dL 03/29/2024 5:09 AM [facility] Sodium 135(L) 136 - 145 mmol/L 03/29/2024 5:09 AM [facility] Potassium 3.8 3.5 - 4.5 mmol/L 03/29/2024 5:09 AM [facility] Chloride 105 98 - 107 mmol/L 03/29/2024 5:09 AM [facility] CO2 22 22 - 29 mmol/L 03/29/2024 5:09 AM [facility] Glucose 87 70 - 115 mg/dL 03/29/2024 5:09 AM [facility] Calcium 9.6 8.4 - 10.2 mg/dL 03/29/2024 5:09 AM [facility] Protein Total 7.6 6.0 - 8.3 g/dL 03/29/2024 5:09 AM [facility] Albumin 3.8 3.4 - 5.0 g/dL 03/29/2024 5:09 AM [facility] Bilirubin Total 0.9 0.2 - 1.2 mg/dL 03/29/2024 5:09 AM [facility] Alkaline Phosphatase 81 40 - 150 U/L 03/29/2024 5:09 AM [facility] ALT 20 5 - 55 U/L 03/29/2024 5:09 AM [facility] AST 17 5 - 34 U/L 03/29/2024 5:09 AM [facility] Anion Gap 8 6 - 16 03/29/2024 5:09 AM [facility] BUN/Creatinine Ratio 12 7 - 23 03/29/2024 5:09 AM [facility] Osmolality Calculated 278 275 - 295 mOsm/kg 03/29/2024 5:09 AM [facility] Albumin/Globulin Ratio 1.0(L) 1.1 - 2.3 03/29/2024 5:09 AM [facility] eGFR by CKD-EPI >90 >=90 mL/min/1.7 3 m2 03/29/2024 5:09 AM [facility] Blood BLOOD SPECIMEN / Unknown Lab Venipuncture / Unknown 03/29/2024 4:30 AM CDT 03/29/2024 4:41 AM T Isaak Ibrahim MD LAB - CHEMISTRY ORDE [facility] Organization Address City/State/ZIP Co de Phone Number [facility] [address] [place] [address], [facility] [phone] * CBC W/O DIFFERENTIAL (03/29/2024 4:30 AM T) WBC 8.7 4.0 - 10.7 x10E9/L 03/29/2024 5:08 AM [facility] RBC Count 4.81 4.30 - 5.80 x10E12/L 03/29/2024 5:08 AM [facility] Hemoglobin 15.3 13.3 - 17.5 g/dL 03/29/2024 5:08 AM [facility] Hematocrit 43.4 38.7 - 51.1 % 03/29/2024 5:08 AM [facility] MCV 90.2 80.0 - 98.0 fL 03/29/2024 5:08 AM [facility] MCH 31.8 26.7 - 33.6 pg 03/29/2024 5:08 AM [facility] MCHC 35.3 31.7 - 36.3 g/dL 03/29/2024 5:08 AM CDT [facility] RDW-CV 12.1 11.3 - 14.8 % 03/29/2024 5:08 AM CDT [facility] Platelet Count 178 150 - 420 x10E9/L 03/29/2024 5:08 AM CDT [facility] MPV 10.5 7.8 - 11.4 fL 03/29/2024 5:08 AM CDT [facility] Blood BLOOD SPECIMEN / Unknown Lab Venipuncture / Unknown 03/29/2024 4:30 AM CDT 03/29/2024 4:42 AM CDT Isaak Ibrahim MD LAB - HEMATOLOGY ORD ERABLES [address] [address], [place] [phone] * LIPASE BLOOD (03/29/2024 4:30 AM CDT) Lipase 13 8 - 78 U/L 03/29/2024 5:09 AM CDT [facility] Blood BLOOD SPECIMEN / Unknown Lab Venipuncture / Unknown 03/29/2024 4:30 AM CDT 03/29/2024 4:41 AM CDT Narrative [facility] - 03/29/2024 5:09 AM CDT Lipase results from the Jenkins Alinity analyzer may not be comparable with other methodologies. Isaak Ibrahim MD LAB - CHEMISTRY ORDSpenser ZARAGOZA [address] [address], [place] [phone] * CULTURE BLOOD (03/29/2024 4:30 AM CDT) Culture No growth day 5 DEVAUGHN 04/03/2024 8:01 AM CDT [facility] Blood PERIPHERAL BLOOD / Unknown Lab Venipuncture / Unknown 03/29/2024 4:30 AM CDT 03/29/2024 4:37 AM CDT Isaak Ibrahim MD LAB - MICROBIOLOGY O RDERABLES Performing Organization Address City/State/[facility] Co de Phone Number [facility] [address] [place], [place] [address], [facility] [phone] * (ABNORMAL) URINALYSIS REFLEX MICROSCOPIC REFLEX CULTURE (03/29/2024 3:54 AM CDT) Color UA Colorless(A) Straw, Yellow 03/29/2024 4:19 AM T [facility] Clarity UA Clear Clear 03/29/2024 4:19 AM [facility] Specific [place] UA 1.009 1.005 - 1.030 03/29/2024 4:19 AM [facility] pH UA 7.0 5.0 - 8.0 pH 03/29/2024 4:19 AM [facility] Protein UA Negative Negative 03/29/2024 4:19 AM [facility] Glucose UA Negative Negative 03/29/2024 4:19 AM [facility] Ketone UA Negative Negative 03/29/2024 4:19 AM [facility] Bilirubin UA Negative Negative 03/29/2024 4:19 AM [facility] Blood UA Negative Negative 03/29/2024 4:19 AM [facility] Nitrite UA Negative Negative 03/29/2024 4:19 AM [facility] Leukocyte Esterase Negative Negative 03/29/2024 4:19 AM [facility] Urobilinogen UA Negative Negative mg/dL 03/29/2024 4:19 AM [facility] Comment UA Microscopic not indicated. 03/29/2024 4:19 AM [facility] Urine URINE SPECIMEN OBTAINED BY CLEAN CATCH PROCEDURE / Unknown Collection / Unknown 03/29/2024 3:54 AM CDT 03/29/2024 3:56 AM CDT Narrative [facility] - 03/29/2024 4:19 AM CDT Isaak Ibrahim MD LAB - URINALYSIS ORD ERABLES [facility] [address] [place] [address], [facility] [phone] * XR FEMUR LEFT 2VW (03/29/2024 12:13 AM CDT) Anatomical Region Laterality Modality Lower Extremity Radiographic Юлия ging 03/29/2024 1:16 AM CDT Narrative 03/29/2024 11:37 AM CDT PROCEDURE: ??XR FEMUR LEFT 2VW, DATE/TIME OF EXAM: ??03/29/2024 12:13 AM, LOCATION ??[facility] INDICATION: R06.02: Shortness of breath ADDITIONAL CLINICAL [...] DATE/TIME OF EXAM: 03/29/2024 12:13 AM, LOCATION [facility] INDICATION: R06.02: Shortness of breath ADDITIONAL CLINICAL [...] head. > Dictated by Chad Francisco DO (residential sales manager). I, Ramiro Naranjo MD have personally reviewed and interpreted this examination/study. > Interpreting Provider: Ramiro Naranjo MD on 03/29/2024 2:30 AM Narrative 03/29/2024 2:30 AM CDT PROCEDURE: ??CT ABDOMEN PELVIS W CONTRAST, DATE/TIME OF EXAM: ??03/29/2024 12:00 AM, LOCATION ??[facility] INDICATION: R06.02: Shortness of breath ADDITIONAL CLINICAL [...] DATE/TIME OF EXAM: 03/29/2024 12:00 AM, LOCATION [facility] INDICATION: R06.02: Shortness of breath ADDITIONAL CLINICAL [...] femoralhead. > Dictated by Chad Francisco DO (residential sales manager). I, Ramiro Naranjo MD have personally reviewed and interpreted this examination/study. > Interpreting Provider: Ramiro Naranjo MD on 03/29/2024 2:30 AM Isaak Ibrahim MD CT ORDERABLES * (ABNORMAL) DIFFERENTIAL MANUAL (03/28/2024 7:13 PM CDT) Neutrophil % 72 41 - 74 % 03/28/2024 8:38 PM CDT [facility] Lymphocyte % 16(L) 17 - 47 % 03/28/2024 8:38 PM [facility] Monocyte % 12(H) 3 - 11 % 03/28/2024 8:38 PM T [facility] Neutrophil Absolute 9.79(H) 1.60 - 7.50 x10E9/L 03/28/2024 8:38 PM T [facility] Lymphocyte Absolute 2.18 1.00 - 4.40 x10E9/L 03/28/2024 8:38 PM T [facility] Monocyte Absolute 1.63(H) 0.15 - 1.00 x10E9/L 03/28/2024 8:38 PM [facility] RBC Morphology NORMAL 03/28/2024 8:38 PM [facility] Large Platelets PRESENT(A) (none) 8:38 PM [facility] Blood BLOOD SPECIMEN / Unknown Venipuncture / Unknown 03/28/2024 7:13 PM CDT 03/28/2024 7:18 PM CDT Linda Leslie APRN-SALES REPRESENTATIVE PRINTING LAB - HEMATO LOGY ORDERABLES [address] [address], [facility] [phone] * AMMONIA (03/28/2024 7:13 PM CDT) Ammonia 37 <=72 umol/L 03/28/2024 7:40 PM CDT [facility] Blood BLOOD SPECIMEN / Unknown Venipuncture / Unknown 03/28/2024 7:13 PM CDT 03/28/2024 7:16 PM CDT Linda Leslie APRN-SALES REPRESENTATIVE PRINTING LAB - CHEMIS TRY ORDERABLES [address] [address], [place] [phone] * PT-INR [facility] (03/28/2024 7:13 PM CDT) PT 13.8 12.1 - 14.8 Seconds 03/28/2024 7:44 PM CDT [facility] INR 1.1 See Comment 03/28/2024 7:44 PM CDT [facility] Comment:The suggested therap eutic range for standard coumadin (warfarin) therapy is an INR of 2.0-3.0. For high-risk patients (Mechanical Mitral Valve Prosthesis, etc.), the suggested prophylactic therapeutic range is an INR of 2.5-3.5. Blood BLOOD SPECIMEN / Unknown Venipuncture / Unknown 03/28/2024 7:13 PM CDT 03/28/2024 7:16 PM CDT Linda Leslie APRN-SALES REPRESENTATIVE PRINTING LAB - COAGUL ATION ORDERABLES Performing Organization Address City/[facility]/ZIP Co de Phone Number [address] [address], [facility] [phone] * MAGNESIUM BLOOD (03/28/2024 7:13 PM CDT) Pathologist [facility] Magnesium 2.1 1.6 - 2.6 mg/dL 03/28/2024 7:51 PM CDT [facility] Blood BLOOD SPECIMEN / Unknown Venipuncture / Unknown 03/28/2024 7:13 PM CDT 03/28/2024 7:16 PM CDT Linda Leslie [facility] LAB - CHEMIS TRY ORDERABLES [address] [address], [facility] [phone] * LIPASE BLOOD (03/28/2024 7:13 PM CDT) Lipase 12 8 - 78 U/L 03/28/2024 7:51 PM CDT [facility] Blood BLOOD SPECIMEN / Unknown Venipuncture / Unknown 03/28/2024 7:13 PM CDT 03/28/2024 7:16 PM CDT [facility] - 03/28/2024 7:51 PM CDT Lipase results from the Jenkins Alinity analyzer may not be comparable with other methodologies. Linda Asiachioma Leslie ASSURANCE ASSOCIATE-SALES REPRESENTATIVE PRINTING LAB - CHEMIS TRY ORDERABLES [facility] [address] [place] [address], [facility] [phone] * (ABNORMAL) COMPREHENSIVE METABOLIC PANEL (03/28/2024 7:13 PM CDT) BUN 16 7 - 26 mg/dL 03/28/2024 7:53 PM [facility] Creatinine 0.88 0.71 - 1.16 mg/dL 03/28/2024 7:53 PM [facility] Sodium 134(L) 136 - 145 mmol/L 03/28/2024 7:53 PM [facility] Potassium 3.8 3.5 - 4.5 mmol/L 03/28/2024 7:53 PM [facility] Chloride 101 98 - 107 mmol/L 03/28/2024 7:53 PM [facility] CO2 24 22 - 29 mmol/L 03/28/2024 7:53 PM [facility] Glucose 87 70 - 115 mg/dL 03/28/2024 7:53 PM [facility] Calcium 9.7 8.4 - 10.2 mg/dL 03/28/2024 7:53 PM [facility] Protein Total 7.7 6.0 - 8.3 g/dL 03/28/2024 7:53 PM [facility] Albumin 3.9 3.4 - 5.0 g/dL 03/28/2024 7:53 PM [facility] Bilirubin Total 0.5 0.2 - 1.2 mg/dL 03/28/2024 7:53 PM [facility] Alkaline Phosphatase 82 40 - 150 U/L 03/28/2024 7:53 PM [facility] ALT 18 5 - 55 U/L 03/28/2024 7:53 PM [facility] AST 14 5 - 34 U/L 03/28/2024 7:53 PM [facility] Anion Gap 9 6 - 16 03/28/2024 7:53 PM [facility] BUN/Creatinine Ratio 18 7 - 23 03/28/2024 7:53 PM [facility] Osmolality Calculated 279 275 - 295 mOsm/kg 03/28/2024 7:53 PM [facility] Albumin/Globulin Ratio 1.0(L) 1.1 - 2.3 03/28/2024 7:53 PM [facility] eGFR by CKD-EPI >90 >=90 mL/min/1.7 3 m2 03/28/2024 7:53 PM [facility] Blood BLOOD SPECIMEN / Unknown Venipuncture / Unknown 03/28/2024 7:13 PM CDT 03/28/2024 7:16 PM CDT Linda Leslie ASSURANCE ASSOCIATE-SALES REPRESENTATIVE PRINTING LAB - CHEMIS TRY ORDERABLES Performing Organization Address City/State/[facility] Co de Phone Number [facility] [address] [place] [address], [facility] [phone] * (ABNORMAL) CBC W AUTO DIFFERENTIAL (03/28/2024 7:13 PM CDT) WBC 13.6(H) 4.0 - 10.7 x10E9/L 03/28/2024 8:38 PM [facility] RBC Count 4.92 4.30 - 5.80 x10E12/L 03/28/2024 8:38 PM [facility] Hemoglobin 15.7 13.3 - 17.5 g/dL 03/28/2024 8:38 PM [facility] Hematocrit 43.9 38.7 - 51.1 % 03/28/2024 8:38 PM [facility] MCV 89.2 80.0 - 98.0 fL 03/28/2024 8:38 PM [facility] MCH 31.9 26.7 - 33.6 pg 03/28/2024 8:38 PM [facility] MCHC 35.8 31.7 - 36.3 g/dL 03/28/2024 8:38 PM CDT [facility] RDW-CV 11.9 11.3 - 14.8 % 03/28/2024 8:38 PM CDT [facility] Platelet Count 175 150 - 420 x10E9/L 03/28/2024 8:38 PM CDT [facility] MPV 9.7 7.8 - 11.4 fL 03/28/2024 8:38 PM CDT [facility] Blood BLOOD SPECIMEN / Unknown Venipuncture / Unknown 03/28/2024 7:13 PM CDT 03/28/2024 7:18 PM CDT Linda Asiachioma Leslie ASSURANCE ASSOCIATE-SALES REPRESENTATIVE PRINTING LAB - HEMATO LOGY ORDERABLES [facility] [address] [place] [phone], [facility] [phone] * XR CHEST 1VW PORTABLE (03/28/2024 7:10 PM CDT) Anatomical Region Laterality Modality Chest Radiographic Юлия ging 03/28/2024 9:11 PM CDT Narrative 03/29/2024 6:21 AM CDT PROCEDURE: ??XR CHEST 1VW PORTABLE, DATE/TIME OF EXAM: ??03/28/2024 7:14 PM, LOCATION ??[facility] INDICATION: R06.02: Shortness of breath ADDITIONAL CLINICAL INFORMATION: Ordering Provider Reason For Exam: ??r/o effusion COMPARISON: None. FINDINGS/IMPRESSION: Mild bibasilar linear opacities, likely atelectasis. Superimposed aspiration or infection cannot be excluded. There is no pleural effusion or pneumothorax. The cardiomediastinal silhouette is normal. The visible bony thorax is intact. > Dictated by Lukas Francisco DO (Line Decorator) Ludin Anton MD have personally reviewed and interpreted this examination/study. > Interpreting Provider: Ludin Nuno MD on 03/29/2024 6:21 AM Procedure Note Ludin Nuno MD - 03/29/2024 PROCEDURE: XR CHEST 1VW PORTABLE, DATE/TIME OF EXAM: 03/28/2024 7:14 PM, LOCATION [facility] INDICATION: R06.02: Shortness of breath ADDITIONAL CLINICAL INFORMATION: Ordering Provider Reason For Exam: r/o effusion COMPARISON: None. FINDINGS/IMPRESSION: Mild bibasilar linear opacities, likely atelectasis. Superimposed aspiration or infection cannot be excluded. There is no pleural effusionor pneumothorax. The cardiomediastinal silhouette is normal. The visiblebony thorax is intact. > Dictated by Lukas Francisco DO (Line Decorator) ILudin MD have personally reviewed and interpreted this examination/study. > Interpreting Provider: Ludin Nuno MD on 03/29/2024 6:21 AM Linda Leslie ASSURANCE ASSOCIATE-SALES REPRESENTATIVE PRINTING DIAGNOSTIC I MAGING ORDERABLES documented in this [...] patency. documented in this encounter Care Teams Network Systems Administrator Relationship Specialty [place] [address] [place] [phone] PCP - General 08/11/22 05/16/24 Eric Oconnell MD Hospitalist 10/10/21 documented as of this encounter
--- OUTSIDE RECORDS SUMMARY | 2024-11-05 08:49 | XMS_ITS | Encounter Summary ---
Author Organization [facility] Address [address] [address] Care Team Providers Care Electrician Research Name Role Phone Eric Oconnell MD Unavailable [phone] Gregorio James MD Primary Care Provider Reason for Visit * Reason Onset Date Comments Medication Issue 05/02/2024 Encounter Details Date Type Department Care Team (Late st Contact Info) Description 05/02/2024 Telephone [facility] [place] [address] [place] [address], [place] [phone] Amos Pabon MD [address] [place] [address] [place] [address] Medication Issue Social History Tobacco Use Types [...] st Contact Info) Description 11/29/2024 8:30 AM VISCOSE CELLAR WORKER Office Visit [facility] - Orthopedic Surgery [address] [place] [address] Toño Cabrera MD [address] [facility] 280 [place] [address] 01/08/2025 8:00 AM CDT Appointment [facility] 1201 [place] [phone] 01/08/2025 9:00 AM CDT Office Visit [facility] [place] [address] [place] [address], [place] [phone] Amos Pabon MD [address] [place] [address] [place] [address] documented as of this encounter Goals Goal [...] on filedocumented in this encounter Care Teams Electrician Research Relationship Specialty Start Date End Date Gregorio James MD [address] [place] [phone] PCP - General 08/11/22 05/16/24 Eric Oconnell MD Hospitalist 10/10/21 documented as of this encounter
--- OUTSIDE RECORDS SUMMARY | 2024-11-05 08:49 | XMS_ITS | Encounter Summary ---
Author Organization [facility] Address [address] [facility] [facility] [place] [address] Care Team Providers Care Is Architect Name Role Phone Eric Oconnell MD Unavailable [phone] Teodoro Lopez Primary Care Provider Unavailabl e Reason for Referral * Radiology Services (Routine) - Open Specialty Diagnoses / Procedures Referred By Contac t Referred To Contact Diagnoses Cirrhosis of liver with ascites, unspecified hepatic cirrhosis type (HCC) Procedures US Abdomen Limited Amos Pabon MD [address] [address] [address] [place] [address] Referral ID Status Reason Start Date Expiration Date Visits Re quested Visits Authorized [id number] Open 06/06/2024 06/06/2025 1 1 Encounter Details Date Type Department Care Team (Late st Contact Info) Description 06/06/2024 Orders Only [facility] [address] [place] [address], [place] [address] Amos Pabon MD [address] [address] [address] [place] [address] Cirrhosis of liver with ascites, [...] Contact Info) Description 11/29/2024 8:30 AM AUTO MECHANIC APPRENTICE Office Visit [facility] - Orthopedic Surgery [address] [facility] [place] [address] Toño Cabrera MD 1031 [facility] 280 [place] [address] 01/08/2025 8:00 AM CDT Appointment [facility] [address] [place] [address] 01/08/2025 9:00 AM CDT Office Visit [facility] - 1225 [facility], [facility] [place] [address] Amos Pabon MD [address] [place] [address] Scheduled Orders Name Type Priority Associated Diagnoses [...] Primary documented in this encounter Care Teams Is Architect Relationship Specialty Start Date End Date Teodoro Lopez PCP - General 05/17/24 Eric Oconnell MD Hospitalist 10/10/21 documented as of this encounter
--- OUTSIDE RECORDS SUMMARY | 2024-11-05 08:49 | XMS_ITS | Encounter Summary ---
Author Organization [facility] Address [address] [facility] [place] [address] Care Team Providers Care Hydrographer Name Role Phone Eric Oconnell MD Unavailable [phone] Gregorio James MD Primary Care Provider [phone] Encounter Details Date Type Department Care Team [...] st Contact Info) Description 11/29/2024 8:30 AM VICE PRESIDENT OF SOFTWARE DEVELOPMENT Office Visit [facility] - Orthopedic Surgery 10[address] [place] [address] Toño Cabrera MD [address] [address] 01/08/2025 8:00 AM CDT Appointment [facility] 1201 [place] [phone] 01/08/2025 9:00 AM CDT Office Visit [facility] - GI 1225 [facility], [place] [address] Amos Pabon MD [address] [place] [address] [place] [address] documented as of this encounter Goals Goal [...] on filedocumented in this encounter Care Teams Hydrographer Relationship Specialty Start Date End Date Gregorio James MD [address] [place] [phone] PCP - General 08/11/22 05/16/24 Eric Oconnell MD Hospitalist 10/10/21 documented as of this encounter
--- OUTSIDE RECORDS SUMMARY | 2024-11-05 08:49 | XMS_ITS | Encounter Summary ---
Author Organization [facility] Address [address] [place] [address] Care Team Providers Care Stewardesses Teacher Name Role Phone Eric Oconnell MD Unavailable [phone] Gregorio James MD Primary Care Provider [phone] Reason for Referral * Radiology Services (Routine) - Closed Specialty Diagnoses / Procedures Referred By Contac t Referred To Contact Diagnoses Cirrhosis of liver with ascites, unspecified hepatic cirrhosis type (HCC) Procedures US ABDOMEN LIMITED Amos Pabon MD [address] [place] [address] [address] [place] [address] [facility] [address] [place] [address] Referral ID Status Reason Start Date Expiration Date Visits Re quested Visits Authorized [id number] Closed 08/16/2023 08/15/2024 1 1 Reason for Visit * Reason Comments Cirrhosis Encounter Details Date Type Department Care Team (Late st Contact Info) Description 08/16/2023 11:30 AM CDT Office Visit [facility] [address] [place] [address], [place] [phone] Amos Pabon MD [address] [place] [address] [address] [place] [address] Cirrhosis of liver with ascites, [...] Ortho. Still in wheelchair and staysat SNF. 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 At SNF gets [...] non-lee portions. 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 All rights reserved. The codes documented in this report are preliminary and upon plant machinist review may be revised to meet current compliance requirements. Amos Pabon, 06/18/2022 9:47:50 AM Note Initiated On: 06/18/2022 9:04 AM Number of Addenda: [address] [address] 03/05/2022 Final Endoscopy Department Report _ Patient [...] entire procedure. Procedure Code(s): --- Professional --- 06872, Esophagogastroduodenoscopy, flexible, transoral; with biopsy, single or multiple Diagnosis Code(s): --- Professional --- K21.0, Gastro-esophageal reflux disease with esophagitis K22.8, Other specified diseases of esophagus K25.9, Gastric ulcer, unspecified as acute or chronic, without hemorrhage or perforation I85.00, Esophageal varices without bleeding CPT copyright 2019 [employer]. All rights reserved. The codes documented in this report are preliminary and upon plant machinist review may be revised to meet current compliance requirements. Amos Pabon, 03/05/2022 9:59:19 AM Note Initiated On: 03/05/2022 9:23 AM Number of Addenda: [address] [address] Final Diagnosis Date Value Ref Range Status [...] plan: Yes, Amount 31min. Amos Pabon MD boiler tube blower Gastroenterology and Hepatology Abdominal Organ Transplant [facility] August 16, 2023 documented in this encounter Plan of Treatment Upcoming Encounters Date Type Department Care Team (Late st Contact Info) Description 11/29/2024 8:30 AM CARDIOLOGY NURSE Office Visit [facility] - Orthopedic Surgery [address] [place] [address] Toño Cabrera MD [address] [place] [address] 01/08/2025 8:00 AM CDT Appointment [facility] 1201 [place] [phone] 01/08/2025 9:00 AM CDT Office Visit [facility] - GI [address] [facility], [place] [phone] Amos Pabon MD [address] [place] [address] [place] [address] Scheduled Orders Name Type Priority Associated Diagnoses [...] Primary documented in this encounter Care Teams Stewardesses Teacher Relationship Specialty [place] [address] [place] [phone] PCP - General 08/11/22 05/16/24 Eric Oconnell MD Hospitalist 10/10/21 documented as of this encounter
--- OUTSIDE RECORDS SUMMARY | 2024-11-05 08:49 | XMS_ITS | Encounter Summary ---
Author Organization [facility] Address [address] [facility] [place] [address] Care Team Providers Care Engineer Second Assistant Name Role Phone Eric Oconnell MD Unavailable [phone] Gregorio James MD Primary Care Provider [phone] Reason for Visit * Reason Comments Pain Knee Left knee injection Encounter Details Date Type Department Care Team (Latest Contact Info) Description 11/17/2023 10:15 AM SYNTHETIC GEM PRESS OPERATOR Office Visit [facility] - Orthopedic Surgery 10[address] [place] [phone] Toño Cabrera MD [facility] [address] [phone] Primary osteoarthritis of left knee (Primary Dx) [...] We will see patient back as needed. HETIC GEM PRESS OPERATOR documented in this encounter Procedure Notes * Toño Cabrera MD - 11/17/2023 10:31 AM CSTAssociated Order(s): PROC INJECTION JOINT (SMALL/INTERMED/MAJOR) Procedure(s): DC DRAIN/INJECT LARGE JOINT/BURSA Pre-Procedure Diagnose(s): Primary osteoarthritis of left knee Orthopaedic Surgery Procedure Note Lukas Diaz [id number] Diagnosis: Left knee pain Procedure: Injection of [...] procedure Toño Cabrera MD 11/17/2023 10:31 AM HETIC GEM PRESS OPERATOR documented in this encounter Plan of Treatment Upcoming Encounters Date Type Department Care Team (Late st Contact Info) Description 11/29/2024 8:30 AM SYNTHETIC GEM PRESS OPERATOR Office Visit [facility] - Orthopedic Surgery [address] [place] [address] Toño Cabrera MD 1031 [facility] 280 [place] [address] 01/08/2025 8:00 AM CDT Appointment [facility] 1201 [place] [phone] 01/08/2025 9:00 AM CDT Office Visit [facility] - GI 1225 [facility], [place] [phone] Amos Pabon MD [address] [place] [address] [place] [address] documented as of this encounter Goals Goal [...] Procedure Name Priority Date/Time Associated Diagnosis Comments DC DRAIN/INJECT LARGE JOINT/BURSA Routine 11/17/2023 10:31 AM SYNTHETIC GEM PRESS OPERATOR Primary osteoarthritis of left knee documented in this encounter Results * DC DRAIN/INJECT LARGE JOINT/BURSA (11/17/2023 10:31 AM SYNTHETIC GEM PRESS OPERATOR) Narrative Toño Cabrera MD - 11/17/2023 10:31 AM SYNTHETIC GEM PRESS OPERATOR Toño Cabrera MD ? 11/17/2023 10:31 AM Orthopaedic Surgery Procedure Note Lukas Diaz [id number] Diagnosis: Left knee pain Procedure: Injection of [...] at 1045 $ Given 11/17/2023 12:13 PM SYNTHETIC GEM PRESS OPERATOR Left Knee triamcinolone acetonide (Kenalog-40) injection 80 mg 80 mg, Intra-articular, ONCE, 1 dose, On Wed11/17/23 at 1045, Shake well before using. $ Given 11/17/2023 12:14 PM SYNTHETIC GEM PRESS OPERATOR 80 mg Left Knee documented in this encounter Care Teams Engineer Second Assistant Relationship Specialty Start Date End Date Gregorio James MD [address] [place] [phone] PCP - General 08/11/22 05/16/24 Eric Oconnell MD Hospitalist 10/10/21 documented as of this encounter
--- OUTSIDE RECORDS SUMMARY | 2024-11-05 08:49 | XMS_ITS | Encounter Summary ---
Author Organization [facility] Address [address] [facility] [place] [address] Care Team Providers Care Corporate Executive Chef Name Role Phone Eric Oconnell MD Unavailable [phone] Teodoro Lopez Primary Care Provider Unavailabl e Reason for Visit * Reason Comments Medication Issue Encounter Details Date Type Department Care Team (Late st Contact Info) Description 05/24/2024 Telephone [facility] [place] [address] [place] [address], [place] [phone] Amos Pabon MD [address] [place] [address] [place] [address] Medication Issue Social History Tobacco Use Types [...] Xifaxan since before February 2024 due to [facility] stating not needing it because he takes Lactulose. Patient resides in [facility] P# [phone], F# [phone]. This nurse spoke with ALFREDO Jaramillo who stated PA was denied and patient was kept on Lactulose for HE. This nurse inquired if patient has applied for the Xifaxan assistance program. Nurse stated uncertainty however if approved a new order will need to be sent to [facility] in [facility]. Please reach out to Ella with an update. documented in this encounter Miscellaneous Notes * Telephone Encounter - Meenu Rojo, [facility] - 06/01/2024 9:00 AM CDT The prior authorization for Xifaxan has been approved; the insurance decision letter is scanned into media. This remote mortgage underwriter then [facility] ([phone]) and spoke with Amelie to notify staff of the PA approval. She requested that I fax the insurance determination letter to the facility ([phone]) and once received they will reach out to the Pharmacy to process the script. Medication Prior Authorization Medication: Xifaxan 550 mg tablet; #60 per 30 days Diagnosis Code: K76.82 (hepatic encephalopathy) Status: APPROVED THROUGH 11-27-2024 Submitted via: Cover My Meds (Daily:[email or web address]) Insurance: [employer] Medicare Helpdesk: [phone] Amos Pabon, Franchesca Stuart RN, Kay Lambert RN * Telephone Encounter - Meenu Rojo RPhT - 05/31/2024 12:11 PM CDT This remote mortgage underwriter initiated and submitted a prior authorization to the patient's insurance for Xifaxan via CoverMyMeds. Pending insurance response; I will update status when available. Medication Prior Authorization Medication: Xifaxan 550 mg tablet; #60 per 30 days Diagnosis Code: K76.82 (hepatic encephalopathy) Status: Submitted - Pending Submitted via: Cover My Meds (Daily:[email or web address]) Insurance: [employer] Medicare Case Number: n/a Helpdesk: [phone] Message routed to Maribel Garg RN documented in this encounter Plan of Treatment Upcoming Encounters Date Type Department Care Team (Late st Contact Info) Description 11/29/2024 8:30 AM STEAM SHOVEL RUNNER Office Visit [facility] - Orthopedic Surgery [address] [place] [address] Toño Cabrera MD [address] [address] 01/08/2025 8:00 AM CDT Appointment [address] [phone] 01/08/2025 9:00 AM CDT Office Visit [facility] [place] 1225 [facility], [place] [address] Amos Pabon MD [facility] [place] [address] documented as of this encounter Goals Goal [...] filedocumented in this encounter Care Teams Corporate Executive Chef Relationship Specialty Start Date End Date Teodoro Lopez PCP - General 05/17/24 Eric Oconnell MD Hospitalist 10/10/21 documented as of this encounter
--- OUTSIDE RECORDS SUMMARY | 2024-11-05 08:49 | XMS_ITS | Clinical Summary ---
Author Organization [facility] Address [address] [place] [address] Care Team Providers Care Garbage Collector Name Role Phone Eric Oconnell MD Unavailable [phone] Teodoro Lopez Primary Care Provider Unavailabl e Source Comments [facility],non-owned Affiliates and Associated Physician Practices is amultiple site organization consisting of ambulatory clinics and hospital sitesin [place], [place], [place] and [place]. This disclosure is being madepursuant to the Care Everywhere program and may not contain all information available regarding this patient. Last updated 18.[facility] Allergies Active Allergy Reactions Criticality Noted Date [...] affected area as needed Active HYDROcodone-acetamin ophen ([place]) 5-325 MG tablet Take 1 (one) tablet [...] st Contact Info) Description 11/29/2024 8:30 AM SKIDWAY MAN Office Visit [facility] - Orthopedic Surgery [address] [facility] [address] [place] [address] Toño Cabrera MD [address] [facility] [address] [place] [address] 01/08/2025 8:00 AM CDT Appointment [facility] [address] [place] [phone] 01/08/2025 9:00 AM CDT Office Visit [facility] - GI [address] [facility], [place] [phone] Amos Pabon MD [address] [place] [address] [address] [facility] [place] [address] Health Maintenance Due Date Last Done Comments LIPID TESTING 1984 MEDICARE AWV ? 12 MONTHS 1984 PNEUMOCOCCAL VACCINE (1 of 2 - PCV) 1990 HIV SCREENING 1999 DTAP/TDAP/TD VACCINES (1 - Tdap) 2003 HEPATITIS B VACCINE (1 of 3 - 19+ 3-dose series) 2003 COVID-19 VACCINE (4 - 2023- season) 2024 01/06/2024, 08/30/2023, 08/14/2021 INFLUENZA VACCINE (#1) 2024 11/30/2023 DEPRESSION SCREENING 10/25/2024 11/17/2023 SCREENING FOR DIABETES 03/29/2027 , 03/28/2024, 02/16/2022, Additional history exists ZOSTER VACCINE (1 of 2) 2034 HEPATITIS C SCREENING Completed 10/01/2021 HIB VACCINE Aged Out No longer eligi [...] HEPATITIS C ANTIBODY Routine 10/01/2021 11:38 AM SKIDWAY MAN Cirrhosis of liver with ascites, unspecified hepatic cirrhosis type (HCC) from Last 3 Months or Most Recently Relevant to Health Maintenance Results * (ABNORMAL) COMPREHENSIVE METABOLIC PANEL (03/29/2024 4:30 AM CDT) BUN 10 7 - 26 mg/dL 03/29/2024 5:09 AM CDT [facility] Creatinine 0.84 0.71 - 1.16 mg/dL 03/29/2024 5:09 AM [facility] Sodium 135(L) 136 - 145 mmol/L 03/29/2024 5:09 AM [facility] Potassium 3.8 3.5 - 4.5 mmol/L 03/29/2024 5:09 AM [facility] Chloride 105 98 - 107 mmol/L 03/29/2024 5:09 AM [facility] CO2 22 22 - 29 mmol/L 03/29/2024 5:09 AM [facility] Glucose 87 70 - 115 mg/dL 03/29/2024 5:09 AM [facility] Calcium 9.6 8.4 - 10.2 mg/dL 03/29/2024 5:09 AM [facility] Protein Total 7.6 6.0 - 8.3 g/dL 03/29/2024 5:09 AM [facility] Albumin 3.8 3.4 - 5.0 g/dL 03/29/2024 5:09 AM [facility] Bilirubin Total 0.9 0.2 - 1.2 mg/dL 03/29/2024 5:09 AM [facility] Alkaline Phosphatase 81 40 - 150 U/L 03/29/2024 5:09 AM [facility] ALT 20 5 - 55 U/L 03/29/2024 5:09 AM [facility] AST 17 5 - 34 U/L 03/29/2024 5:09 AM [facility] Anion Gap 8 6 - 16 03/29/2024 5:09 AM [facility] BUN/Creatinine Ratio 12 7 - 23 03/29/2024 5:09 AM [facility] Osmolality Calculated 278 275 - 295 mOsm/kg 03/29/2024 5:09 AM [facility] Albumin/Globulin Ratio 1.0(L) 1.1 - 2.3 03/29/2024 5:09 AM [facility] eGFR by CKD-EPI >90 >=90 mL/min/1.7 3 m2 03/29/2024 5:09 AM [facility] Blood BLOOD SPECIMEN / Unknown Lab Venipuncture / Unknown 03/29/2024 4:30 AM CDT 03/29/2024 4:41 AM CDT Isaak Ibrahim MD LAB - CHEMISTRY KURT ZARAGOZA [facility] [address] [place] [address], [place] [phone] * HEPATITIS C ANTIBODY (10/01/2021 11:38 AM SKIDWAY MAN) Hepatitis C Antibody Non-react young Non-reac tive 10/01/2021 1:14 PM SKIDWAY MAN [facility] Comment:Hepatitis C Antibody screen [...] Lab Venipuncture / Unknown 10/01/2021 11:38 AM SKIDWAY MAN 10/01/2021 11:46 AM SKIDWAY MAN Amos Pabon MD LAB - CHEMISTRY KURT ZARAGOZA Performing Organization Address [facility]/ZIP Co de Phone Number [facility] [address] [place] [address], [place] [phone] from Last 3 Months or Most Recently Relevant to Health Maintenance Advance Directives * Full Code (Latest Code Status on File) Date Activated Date Inactivated Comments 03/29/2024 12:13 AM 03/29/2024 11:54 PM Care Teams Garbage Collector Relationship Specialty Start Date End Date Teodoro Lopez PCP - General 05/17/24 Eric Oconnell MD Hospitalist 10/10/21
--- OUTSIDE RECORDS SUMMARY | 2024-11-05 08:49 | XMS_ITS | Encounter Summary ---
Author Organization [facility] Address [address] [facility] [address] Care Team Providers Care Herb Grower Name Role Phone Eric Oconnell MD Unavailable [phone] Gregorio James MD Primary Care Provider [phone] Reason for Visit * Reason Onset Date Comments Pain Abdominal 03/28/2024 Encounter Details Date Type Department Care Team (Late st Contact Info) Description 03/28/2024 Telephone [facility] - [address] [facility], [place] [phone] Tika Bull RN Pain Abdominal Social History [...] disconnected at this time. This nurse contacted [facility] and requested to speak with the DON or HUMAN RESOURCES SERVICES SPECIALIST. Test Desk Trouble Locator stated they were both gone for the day so this nurse requested to speak to Water Quality Tester. This nurse was placed on hold for [...] currently a 9/10, states he took a [place] about an hour ago. States he is [...] st Contact Info) Description 11/29/2024 8:30 AM CULTURE ROOM WORKER Office Visit [facility] - Orthopedic Surgery [address] [place] [address] Toño Cabrera MD [address] [facility] [address] [place] [address] 01/08/2025 8:00 AM CDT Appointment [facility] [address] [place] [phone] 01/08/2025 9:00 AM CDT Office Visit [facility] - GI [address] [facility], [place] [phone] Amos Pabon MD [address] [place] [address] [place] [address] documented as of this encounter Goals Goal [...] on filedocumented in this encounter Care Teams Herb Grower Relationship Specialty Start Date End Date Gregorio James MD [address] [place] [phone] PCP - General 08/11/22 05/16/24 Eric Oconnell MD Hospitalist 10/10/21 documented as of this encounter
--- OUTSIDE RECORDS SUMMARY | 2024-11-05 08:49 | XMS_ITS | Encounter Summary ---
Author Organization [facility] Address [address] [place] [address] Care Team Providers Care Signals Collector/Analyst Name Role Phone Eric Oconnell MD Unavailable [phone] Gregorio James MD Primary Care Provider [phone] Encounter Details Date Type Department Care Team [...] st Contact Info) Description 11/29/2024 8:30 AM 3D MODELER Office Visit [facility] - Orthopedic Surgery [address] [place] [address] Toño Cabrera MD [address] [facility] [address] [place] [address] 01/08/2025 8:00 AM CDT Appointment [facility] [address] [place] [phone] 01/08/2025 9:00 AM CDT Office Visit [facility] - GI [address] [facility], [place] [phone] Amos Pabon MD [address] [place] [address] [address] [facility] [place] [address] documented as of this encounter Goals Goal [...] on filedocumented in this encounter Care Teams Signals Collector/Analyst Relationship Specialty Start Date End Date Gregorio James MD [address] [phone] PCP - General 08/11/22 05/16/24 Eric Oconnell MD Hospitalist 10/10/21 documented as of this encounter
--- OUTSIDE RECORDS SUMMARY | 2024-11-05 08:49 | XMS_ITS | Patient Health Summary ---
Author Organization [facility] Address [address] [place] [address] Care Team Providers Care Pumper Gauger Apprentice Name Role Phone Eric Oconnell MD Unavailable [phone] Teodoro Lopez Primary Care Provider Unavailabl e Note from [facility],non-owned Affiliates and Associated Physician Practices is amultiple site organization consisting of ambulatory clinics and hospital sitesin [place], [place], [place] and [place]. This disclosure is being madepursuant to the Care Everywhere program and may not contain all information available regarding this patient. Last updated 18.[facility] Allergies * Mushroom Extract Complex(Other) * Peanut-Derived(Anaphylaxis) [...] to affected area as needed * HYDROcodone-acetaminophen (Haxtun) 5-325 MG tablet Take 1 (one) tablet [...] 33.28 03/28/2024 6:10 PM CDT Procedures * VA DRAIN/INJECT LARGE JOINT/BURSA(Performed 05/17/2024) Performed for Primary osteoarthritis of both knees * VA DRAIN/INJECT LARGE JOINT/BURSA(Performed 05/17/2024) Performed for Primary [...] 03/28/2024) Performed for Shortness of breath * VA DRAIN/INJECT LARGE JOINT/BURSA(Performed 02/16/2024) Performed for Primary osteoarthritis of both knees * VA DRAIN/INJECT LARGE JOINT/BURSA(Performed 02/16/2024) Performed for Primary osteoarthritis of both knees * VA DRAIN/INJECT LARGE JOINT/BURSA(Performed 11/17/2023) Performed for Primary osteoarthritis of left knee * US ABDOMEN LIMITED(Performed 08/25/2023) Performed for Cirrhosis of liver with ascites, unspecified hepatic cirrhosis type (HCC) * VITAMIN D HYDROXY (EXTERNAL RESULT)(Performed 08/12/2023) * CBC W DIFF (EXTERNAL RESULT ENTRY)(Performed 08/12/2023) * COMP MET PANEL (EXTERNAL RESULT ENTRY)(Performed 08/12/2023) * VA DRAIN/INJECT LARGE JOINT/BURSA(Performed 06/29/2023) Performed for Primary osteoarthritis of left knee * PT INR (EXTERNAL RESULT ENTRY)(Performed 02/22/2023) * COMP MET PANEL (EXTERNAL RESULT ENTRY)(Performed 02/22/2023) * CBC W DIFF (EXTERNAL RESULT ENTRY)(Performed 02/22/2023) * VA DRAIN/INJECT LARGE JOINT/BURSA(Performed 02/16/2023) Performed for Primary osteoarthritis of left knee * VA DRAIN/INJECT LARGE JOINT/BURSA(Performed 08/11/2022) Performed for Left knee pain, unspecified chronicity, Primary osteoarthritis of left knee * XR KNEE LEFT 4VW OR MORE(Performed 08/11/2022) Performed for Left knee pain, unspecified chronicity * VA ED EGD FLEX TRANSORAL DX(Performed 06/18/2022) Performed for Chronic gastric ulcer without hemorrhage and without perforation * EGD(Performed 06/18/2022) * PATHOLOGY TISSUE(Performed 03/05/2022) Performed for Other cirrhosis of liver (HCC) * VA ED EGD FLEX TRANSORAL DX(Performed 03/05/2022) Performed [...] ascites, unspecified hepatic cirrhosis type (HCC) * [id number]-[id number] BLOOD(Performed 10/01/2021) Performed for Cirrhosis of liver [...] DIFF (EXTERNAL RESULT ENTRY)(Performed 05/14/2021) Results * VA DRAIN/INJECT LARGE JOINT/BURSA (05/17/2024 3:13 PM CDT) Narrative Toño Cabrera MD - 05/17/2024 3:13 PM CDT Toño Cabrera MD ? 05/17/2024 ??3:13 PM Orthopaedic Surgery Procedure Note Lukas Diaz [id number] Diagnosis: Left knee pain Procedure: Injection of [...] Cabrera MD PROCEDURE/MINOR TRUDI GICAL ORDERABLES * VA DRAIN/INJECT LARGE JOINT/BURSA (05/17/2024 3:12 PM CDT) Narrative Toño Cabrera MD - 05/17/2024 3:12 PM CDT Toño Cabrera MD ? 05/17/2024 ??3:13 PM Orthopaedic Surgery Procedure Note Lukas Diaz [id number] Diagnosis: Right knee pain Procedure: Injection of [...] DATE/TIME OF EXAM: ??05/17/2024 12:11 PM, LOCATION ??[facility] INDICATION: M17.0: Bilateral primary osteoarthritis of knee. [...] DATE/TIME OF EXAM: 05/17/2024 12:11 PM, LOCATION [facility] INDICATION: M17.0: Bilateral primary osteoarthritis of knee. [...] (mg/dL) <10 <10 mg/dL 12:[address] [facility] Ethanol Calculated (g/dL) <0.010 <=0.010 g/dL 03/29/2024 12:36 PM CDT [facility] Blood BLOOD SPECIMEN / Unknown Venipuncture / Unknown 03/29/2024 12:08 PM CDT 03/29/2024 12:16 PM CDT Narrative [facility] - 03/29/2024 12:36 PM CDT Ethanol Interp <10: None Detected. Depression of DESIZING MACHINE OFFBEARER: >100 mg/dl Potentially Critical: >250 mg/dl Potentially [...] - CHEMISTR Y ORDERABLES Performing Organization Address City/[facility]/ZIP Co de Phone Number [facility] [address] [place] [address], [facility] [phone] * CULTURE BLOOD (03/29/2024 4:31 AM CDT) Only the most recent of2 resultswithin the time period is included. Culture No growth day 5 DEVAUGHN 04/03/2024 8:01 AM CDT [facility] Blood PERIPHERAL BLOOD / Unknown Lab Venipuncture / Unknown 03/29/2024 4:31 AM CDT 03/29/2024 4:37 AM CDT Isaak Ibrahim MD LAB - MICROBIOLOGY O RDERABLES Performing Organization Address City/[facility]/ZIP Co de Phone Number [facility] [address] [place] [address], [facility] [phone] * CBC W/O DIFFERENTIAL (03/29/2024 4:30 AM CDT) Only the most recent of4 resultswithin the time period is included. WBC 8.7 4.0 - 10.7 x10E9/L 03/29/2024 5:08 AM CDT [facility] RBC Count 4.81 4.30 - 5.80 x10E12/L 03/29/2024 5:08 AM CDT [facility] Hemoglobin 15.3 13.3 - 17.5 g/dL 03/29/2024 5:08 AM CDT [facility] Hematocrit 43.4 38.7 - 51.1 % [...] Ibrahim MD LAB - HEMATOLOGY ORD ERABLES [facility] [address] [place] [address], [facility] [phone] * (ABNORMAL) COMPREHENSIVE METABOLIC PANEL (03/29/2024 4:30 [...] Ibrahim MD LAB - CHEMISTRY KURT ZARAGOZA [facility] Organization Address City/State/ZIP Co de Phone Number [facility] [address] [place] [address], [facility] [phone] * PHOSPHORUS BLOOD (03/29/2024 4:30 AM CDT) Phosphorus 2.9 2.8 - 5.1 mg/dL 03/29/2024 5:09 AM CDT [facility] Blood BLOOD SPECIMEN / Unknown Lab Venipuncture / Unknown 03/29/2024 4:30 AM CDT 03/29/2024 4:41 AM CDT Isaak Ibrahim MD LAB - CHEMISTRY KURT ZARAGOZA Performing Organization Address City/[facility]/ZIP Co de Phone Number [facility] [address] [place] [address], [place] [phone] * MAGNESIUM BLOOD (03/29/2024 4:30 AM CDT) Only the most recent of2 resultswithin the time period is included. Magnesium 2.1 1.6 - 2.6 mg/dL 03/29/2024 5:09 AM CDT [facility] Blood BLOOD SPECIMEN / Unknown Lab Venipuncture / Unknown 03/29/2024 4:30 AM CDT 03/29/2024 4:41 AM CDT Isaak Ibrahim MD LAB - CHEMISTRY KURT ZARAGOZA Performing Organization Address [facility]/ZIP Co de Phone Number [address] [address], [place] [phone] * LIPASE BLOOD (03/29/2024 4:30 AM CDT) Only the most recent of2 resultswithin the time period is included. Lipase 13 8 - 78 U/L 03/29/2024 5:09 AM CDT [facility] Blood BLOOD SPECIMEN / Unknown Lab Venipuncture / Unknown 03/29/2024 4:30 AM CDT 03/29/2024 4:41 AM CDT Narrative [facility] - 03/29/2024 5:09 AM CDT Lipase results from the [employer] Alinity analyzer may not be comparable with other methodologies. Isaak Ibrahim MD LAB - CHEMISTRY KURT ZARAGOZA [facility] [address] [place] [address], [facility] [phone] * (ABNORMAL) URINALYSIS REFLEX MICROSCOPIC REFLEX CULTURE (03/29/2024 3:54 AM CDT) Color UA Colorless(A) Straw, Yellow 03/29/2024 4:19 AM [facility] Clarity UA Clear Clear 03/29/2024 4:19 AM T [facility] Specific [place] UA 1.009 1.005 - 1.030 03/29/2024 4:19 [...] AM CDT 03/29/2024 3:56 AM T Narrative [facility] - 03/29/2024 4:19 AM CDT Isaak Ibrahim MD LAB - URINALYSIS ORD ERABLES [facility] [address] [place] [address], [facility] [phone] * XR FEMUR LEFT 2VW (03/29/2024 12:13 AM CDT) Only the most recent of3 resultswithin the time period is included. Anatomical Region Laterality Modality Lower Extremity Radiographic Юлия ging 03/29/2024 1:16 AM CDT Narrative 03/29/2024 11:37 AM CDT PROCEDURE: ??XR FEMUR LEFT 2VW, DATE/TIME OF EXAM: ??03/29/2024 12:13 AM, LOCATION ??[facility] INDICATION: R06.02: Shortness of breath [...] DATE/TIME OF EXAM: 03/29/2024 12:13 AM, LOCATION [facility] INDICATION: R06.02: Shortness of breath [...] head. > Dictated by Chad Francisco DO (nursing resident). I, Ramiro Naranjo MD have personally reviewed and interpreted this examination/study. > Interpreting Provider: Ramiro Naranjo MD on 03/29/2024 2:30 AM Narrative 03/29/2024 2:30 AM CDT PROCEDURE: ??CT ABDOMEN PELVIS W CONTRAST, DATE/TIME OF EXAM: ??03/29/2024 12:00 AM, LOCATION ??[facility] INDICATION: R06.02: Shortness of breath [...] DATE/TIME OF EXAM: 03/29/2024 12:00 AM, LOCATION [facility] INDICATION: R06.02: Shortness of breath [...] femoralhead. > Dictated by Chad Francisco DO (nursing resident). I, Ramiro Naranjo MD have personally reviewed and interpreted this examination/study. > Interpreting Provider: Ramiro Naranjo MD on 03/29/2024 2:30 AM Isaak Ibrahim MD CT ORDERABLES * PT-INR [facility] (03/28/2024 7:13 PM CDT) Only the [...] CDT 03/28/2024 7:16 PM CDT Linda Leslie MATH AND PHYSICS INSTRUCTOR-PUG MACHINE OPERATOR LAB - COAGUL ATION ORDERABLES [facility] [address] [place] [address], [facility] [phone] * (ABNORMAL) DIFFERENTIAL MANUAL (03/28/2024 7:13 PM [...] CDT 03/28/2024 7:18 PM CDT Linda Leslie MATH AND PHYSICS INSTRUCTOR-PUG MACHINE OPERATOR LAB - HEMATO LOGY ORDERABLES [facility] [address] [place] [address], [facility] [phone] * (ABNORMAL) CBC W AUTO DIFFERENTIAL (03/28/2024 7:13 PM CDT) Only the most recent of2 resultswithin the time period is included. WBC 13.6(H) 4.0 - 10.7 x10E9/L 03/28/2024 8:38 PM CDT [facility] RBC Count 4.92 4.30 - 5.80 x10E12/L 03/28/2024 8:38 PM CDT [facility] Hemoglobin 15.7 13.3 - 17.5 g/dL 03/28/2024 8:38 PM T [facility] Hematocrit 43.9 38.7 - 51.1 % 03/28/2024 8:38 PM T [facility] MCV 89.2 80.0 - 98.0 fL 03/28/2024 8:38 PM CDT [facility] MCH 31.9 26.7 - 33.6 pg 03/28/2024 8:38 PM T [facility] MCHC 35.8 31.7 - 36.3 g/dL 03/28/2024 8:38 PM CDT [facility] RDW-CV 11.9 11.3 - 14.8 % 03/28/2024 8:38 PM T [facility] Platelet Count 175 150 - 420 x10E9/L 03/28/2024 8:38 PM T [facility] MPV 9.7 7.8 - 11.4 fL 03/28/2024 8:38 PM T [facility] Blood BLOOD SPECIMEN / Unknown Venipuncture / Unknown 03/28/2024 7:13 PM CDT 03/28/2024 7:18 PM CDT Linda Leslie MATH AND PHYSICS INSTRUCTOR-PUG MACHINE OPERATOR LAB - HEMATO LOGY ORDERABLES [facility] [address] [place] [address], [facility] [phone] * AMMONIA (03/28/2024 7:13 PM CDT) Ammonia 37 <=72 umol/L 03/28/2024 7:40 PM CDT [facility] Blood BLOOD SPECIMEN / Unknown Venipuncture / Unknown 03/28/2024 7:13 PM CDT 03/28/2024 7:16 PM CDT Linda Leslie MATH AND PHYSICS INSTRUCTOR-PUG MACHINE OPERATOR LAB - CHEMIS TRY ORDERABLES [facility] [address] [place] [address], [facility] [phone] * XR CHEST 1VW PORTABLE (03/28/2024 7:10 PM CDT) Anatomical Region Laterality Modality Chest Radiographic Юлия ging 03/28/2024 9:11 PM CDT Narrative 03/29/2024 6:21 AM CDT PROCEDURE: ??XR CHEST 1VW PORTABLE, DATE/TIME OF EXAM: ??03/28/2024 7:14 PM, LOCATION ??[facility] INDICATION: R06.02: Shortness of breath ADDITIONAL CLINICAL INFORMATION: Ordering Provider Reason For Exam: ??r/o effusion COMPARISON: None. FINDINGS/IMPRESSION: Mild bibasilar linear opacities, likely atelectasis. Superimposed aspiration or infection cannot be excluded. There is no pleural effusion or pneumothorax. The cardiomediastinal silhouette is normal. The visible bony thorax is intact. > Dictated by Lukas Francisco DO (Associate Professor Of Literature) ILuidn MD have personally reviewed and interpreted this examination/study. > Interpreting Provider: Ludin Nuno MD on 03/29/2024 6:21 AM Procedure Note Ludin Nuno MD - 03/29/2024 PROCEDURE: XR CHEST 1VW PORTABLE, DATE/TIME OF EXAM: 03/28/2024 7:14 PM, LOCATION [facility] INDICATION: R06.02: Shortness of breath ADDITIONAL CLINICAL INFORMATION: Ordering Provider Reason For Exam: r/o effusion COMPARISON: None. FINDINGS/IMPRESSION: Mild bibasilar linear opacities, likely atelectasis. Superimposed aspiration or infection cannot be excluded. There is no pleural effusionor pneumothorax. The cardiomediastinal silhouette is normal. The visiblebony thorax is intact. > Dictated by Lukas Francisco DO (Associate Professor Of Literature) I, Ludin Nuno MD have personally reviewed and interpreted this examination/study. > Interpreting Provider: Ludin Nuno MD on 03/29/2024 6:21 AM Linda Betancourt Anuj MATH AND PHYSICS INSTRUCTOR-PUG MACHINE OPERATOR DIAGNOSTIC I MAGING ORDERABLES * VA DRAIN/INJECT LARGE JOINT/BURSA (02/16/2024 10:34 AM CDT) Narrative Toño Cabrera MD - 02/16/2024 10:34 AM CDT Toño Cabrera MD ? 02/16/2024 11:34 AM Orthopaedic Surgery Procedure Note Lukas Diaz [id number] Diagnosis: Left knee pain Procedure: Injection of [...] Cabrera MD PROCEDURE/MINOR TRUDI GICAL ORDERABLES * VA DRAIN/INJECT LARGE JOINT/BURSA (02/16/2024 10:34 AM CDT) Narrative Toño Cabrera MD - 02/16/2024 10:34 AM CDT Toño Cabrera MD ? 02/16/2024 11:34 AM Orthopaedic Surgery Procedure Note Luksa Diza [id number] Diagnosis: Right knee pain Procedure: Injection of [...] Cabrera MD PROCEDURE/MINOR TRUDI GICAL ORDERABLES * VA DRAIN/INJECT LARGE JOINT/BURSA (11/17/2023 10:31 AM CAR MOVER) Narrative Toño Cabrera MD - 11/17/2023 10:31 AM CAR MOVER Toño Cabrera MD ? 11/17/2023 10:31 AM Orthopaedic Surgery Procedure Note Lukas Diaz [id number] Diagnosis: Left knee pain Procedure: Injection of [...] months. Report dictated by Hany Cornelius MD, (nursing resident). I, Bina Perez MD have personally reviewed and interpreted this examination/study. > Interpreting Provider: Bina Perez MD on 08/25/2023 10:18 AM Narrative 08/25/2023 10:18 AM CDT PROCEDURE: ??US ABDOMEN LIMITED, DATE/TIME OF EXAM: ??08/25/2023 7:53 AM, LOCATION ??[facility] INDICATION: K74.60: Cirrhosis of liver [...] DATE/TIME OF EXAM: 08/25/2023 7:53 AM, LOCATION [facility] INDICATION: K74.60: Cirrhosis of liver [...] months. Report dictated by Hany Cornelius MD, (nursing resident). I, Bina Perez MD have personally reviewed and interpreted this examination/study. > Interpreting Provider: Bina Perez MD on 08/25/2023 10:18 AM Klarissa Rutledge MATH AND PHYSICS INSTRUCTOR-PUG MACHINE OPERATOR US ORDERABL ES * CBC W DIFF (EXTERNAL RESULT ENTRY) (08/12/2023 6:18 AM CDT) Only the most recent of6 resultswithin the time period is included. WBC (EXTERNAL RESULT) 9.2 10^3/ul [facility] Hemoglobin (EXTERNAL RESULT) 14.9 g/dl [facility] Hematocrit (EXTERNAL RESULT) 44.6 % [facility] Platelets (EXTERNAL RESULT) 179 10^3/ul [facility] Neutrophil Absolute (EXTERNAL RESULT) [facility] Blood BLOOD SPECIMEN / Unknown 08/12/2023 6:18 AM CDT Historical Provider LAB - HEMATOLOGY ORDERABLES [facility] [address] [place] [address], [facility] [phone] * VITAMIN D HYDROXY (EXTERNAL RESULT) (08/12/2023 6:18 AM CDT) Vitamin D Hydroxy (External Result) 75 [facility] Blood 08/12/2023 6:18 AM CDT Historical Provider LAB - CHEMISTRY O CAITLIN [facility] [address] [place] [address], [facility] [phone] * COMP MET PANEL (EXTERNAL RESULT ENTRY) (08/12/2023 6:18 AM CDT) Only the most recent of5 resultswithin the time period is included. Glucose (EXTERNAL) 87 mg/dL [facility] Sodium (EXTERNAL RESULT) 142 mmol/L [facility] Potassium (EXTERNAL RESULT) 4.3 mmol/L [facility] Chloride (EXTERNAL RESULT) 104 mmol/L [facility] CO2 (EXTERNAL) 29 mmol/L [facility] Calcium (EXTERNAL RESULT) 9.0 mg/dL [facility] Anion Gap (EXTERNAL RESULT) [facility] BUN (EXTERNAL RESULT) 12 mg/dL [facility] Creatinine (EXTERNAL RESULT) 0.8 mg/dl [facility] Alkaline Phosphatase (EXTERNAL RESULT) 70 U/L [facility] ALT (EXTERNAL RESULT) 20 U/L [facility] AST (EXTERNAL RESULT) 15 U/L [facility] Protein Total (EXTERNAL RESULT) 7.1 gm/dL [facility] Albumin (EXTERNAL RESULT) 4.0 gm/dL [facility] Bilirubin Total (EXTERNAL RESULT) 0.5 mg/dL [facility] eGFR MDRD (EXTERNAL RESULT) 80 mL/min/1.7 3m2 [facility] eGFR (EXTERNAL) 97 mL/min/1.7 3m2 [facility] Blood BLOOD SPECIMEN / Unknown 08/12/2023 6:18 AM CDT Historical Provider LAB - CHEMISTRY O CAITLIN [facility] [address] [address], [facility] [phone] * VA DRAIN/INJECT LARGE JOINT/BURSA (06/29/2023 9:27 AM CDT) Narrative Toño Cabrera MD - 06/29/2023 9:27 AM CDT Toño Cabrera MD ? 06/29/2023 ??3:12 PM Orthopaedic Surgery Procedure Note Lukas Diaz [id number] Diagnosis: Left knee pain Procedure: Injection of [...] - CHEMISTRY O RDERABLES OTHER LAB * VA DRAIN/INJECT LARGE JOINT/BURSA (02/16/2023 12:00 PM CDT) Narrative Toño Cabrera MD - 02/16/2023 12:00 PM CDT Toño Cabrera MD ? 02/18/2023 ??3:47 PM Orthopaedic Surgery Procedure Note Lukas Diaz [id number] Diagnosis: Left knee pain Procedure: Injection of [...] Cabrera MD PROCEDURE/MINOR TRUDI GICAL ORDERABLES * VA DRAIN/INJECT LARGE JOINT/BURSA (08/11/2022 10:08 AM CDT) [...] DATE/TIME OF EXAM: ??08/11/2022 9:22 AM, LOCATION ??[facility] INDICATION: M25.562: Pain in left knee Findings: [...] MORE, DATE/TIME OF EXAM: 29:22 AM, LOCATION [facility] INDICATION: M25.562: Pain in left knee Findings: [...] Procedure Code(s): ? --- Professional --- ? 44962, Esophagogastroduode noscopy, flexible, transoral; diagnostic, ? including collection of specimen(s) by brushing or washing, when ? performed (separate procedure) Diagnosis Code(s): ?--- Professional --- ?K76.6, Portal hypertension ?K22.70, Ohlt's esophagus without dysplasia CPT copyright 2019 [employer]. All rights reserved. The codes documented in this report are preliminary and upon cinder worker review may be revised to meet current compliance requirements. Amos Pabon, 06/18/2022 9:47:50 AM Note Initiated On: 06/18/2022 9:04 AM Number of Addenda: 0 ? [facility] ? [address] [place], [place] [address] [place] [address] PROVATION 06/18/2022 9:04 AM CDT Amos Pabon MD GI PROCEDURE ORDERAB LES [facility] PROVATION * PATHOLOGY TISSUE (03/05/2022 9:47 AM CDT) Case Report Surgical Pathology Report ? Case: [id number] ? Authorizing Provider: ??Amos Pabon MD ?Collected: ? 03/05/2022 09:47 AM ? Ordering Location: ? [facility] ?Received: ?03/05/2022 11:35 AM ? Pathologist: ? Елена Stubbs MD ? Specimen: ?Gastric, . ??gastric bx R/O H pylori ? 03/06/2022 12:19 PM [facility] Final Diagnosis Stomach, biopsy (A): - Mild reactive changes and proton pump inhibitor effect - No active inflammation or H. pylori organisms (H&E examination) 03/06/2022 12:19 PM [facility] Microscopic Description and Comment Microscopic examination substantiates the final diagnosis. 03/06/2022 12:19 PM [facility] Clinical History The patient is a 36-year-old man here for 2nd degree variceal eradication. Operative procedure/findings: EGD - few non-bleeding superficial gastric ulcers in antrum, biopsied. 03/06/2022 12:19 PM [facility] Gross Description The requisition and specimen(s) are identified with the patient's name Lukas Diaz. Received in formalin, specimen A , are 4 pink-briscoe tissues, 0.1-0.7 cm in greatest dimension and 1.3 x 0.2 x 0.2 cm in aggregate, submitted in toto in cassette A1. DF 03/06/2022 12:19 PM [facility] Disclaimer The performance characteristics of all immunohistochemical and indirect immunofluorescence stains (if any) cited in this report were determined by the Histopathology Laboratory of [facility]. Some of these tests were developed by [...] attending (teaching) pathologist. 03/06/2022 12:19 PM CDT [facility] Embedded Images 03/06/2022 12:19 PM CDT [facility] Biopsy, NOS GASTRIC CONTENTS SPECIMEN / Unknown 03/05/2022 9:47 AM CDT 03/05/2022 11:35 AM CDT Comment:Pre-op diagnosis: Other cirrhosis of liver [K74.69] Amos Pabon MD LAB - PATHOLOGY/CYTO LOGY ORDERABLES [facility] [address] [place] [address], [facility] [phone] * EGD (03/05/2022 9:23 AM CDT) Report [...] Procedure Code(s): ? --- Professional --- ? 02794, Esophagogastroduode noscopy, flexible, transoral; with biopsy, ? single or multiple Diagnosis Code(s): ?--- Professional --- ?K21.0, Gastro-esophageal reflux disease with ?esophagitis ?K22.8, Other specified diseases of esophagus ?K25.9, Gastric ulcer, unspecified as acute or ?chronic, without hemorrhage or perforation ?I85.00, Esophageal varices without bleeding CPT copyright 2019 [employer]. All rights reserved. The codes documented in this report are preliminary and upon cinder worker review may be revised to meet current compliance requirements. Amos Pabon, 03/05/2022 9:59:19 AM Note Initiated On: 03/05/2022 9:23 AM Number of Addenda: 0 ? [facility] ? [address] [place] [address] [facility] 03/05/2022 9:23 AM CDT Amos Pabon MD GI PROCEDURE ORDERAB LES Performing Organization Address [facility]/ZIP Co de Phone Number [facility] * ALPHA FETOPROTEIN BLOOD TUMOR MARKER (02/16/2022 2:26 PM CDT) Only the most recent of2 resultswithin the time period is included. [facility] Alpha-Fetoprote in Tumor Marker 2.9 <=8.3 ng/mL 02/16/2022 4:09 PM CDT [facility] Comment: AFP values will vary depending on testing procedure used. Results are not comparable across different methods. AFP values obtained by [facility] using an [employer] Alinity Immunoassay. Blood BLOOD SPECIMEN / Unknown Lab Venipuncture / Unknown 02/16/2022 2:26 PM CDT 02/16/2022 3:24 PM CDT Amos Pabon MD LAB - CHEMISTRY ORDE RABVIDA Performing Organization Address City/[facility]/ZIP Co de Phone Number [facility] [address] [place] [address], [facility] [phone] * (ABNORMAL) BASIC METABOLIC PANEL (CALCIUM TOTAL) (02/16/2022 2:26 PM CDT) Only the most recent of2 resultswithin the time period is included. [facility] BUN 9 7 - 26 mg/dL 02/16/2022 3:[address] [facility] Creatinine 0.76 0.71 - 1.16 mg/dL 02/16/2022 3:[address] [facility] Sodium 139 136 - 145 mmol/L 02/16/2022 3:50 PM CDT [facility] Potassium 3.7 3.5 - 4.5 mmol/L 02/16/2022 3:50 PM T [facility] Chloride 98 98 - 107 mmol/L 02/16/2022 3:50 PM T [facility] CO2 31(H) 22 - 29 mmol/L 02/16/2022 3:50 PM T [facility] Glucose 70 70 - 115 mg/dL 02/16/2022 3:50 PM T [facility] Calcium 10.4(H) 8.4 - 10.2 mg/dL 02/16/2022 3:50 PM T [facility] Anion Gap 14 8 - 18 [...] Amos Pabon MD LAB - CHEMISTRY ORDE [facility] Organization Address City/State/ZIP Co de Phone Number [facility] [address] [place] [address], [facility] [phone] * (ABNORMAL) HEPATIC FUNCTION PANEL (02/16/2022 2:26 PM CDT) Only the most recent of2 resultswithin the time period is included. Protein Total 8.9(H) 6.0 - 8.3 g/dL 022 3:50 PM T [facility] Albumin 4.0 3.4 - 5.0 g/dL 02/16/2022 3:50 PM T [facility] Bilirubin Total 0.5 0.2 - 1.2 mg/dL 01/24 3:50 PM CDT [facility] Bilirubin Conjugated 0.3 0.1 - 0.5 mg/dL 02/16/2022 3:50 PM T [facility] Bilirubin Unconjugated 0.2 Unconjugated Bilirubin is a calculated value: Reference ranges have not been established. mg/dL 02/16/2022 3:50 PM CDT [facility] Alkaline Phosphatase 130 40 - 150 U/L 02/16/2022 3:50 PM CDT [facility] ALT 20 5 - 55 U/L 02/16/2022 3:50 PM T [facility] AST 24 5 - 34 U/L 02/16/2022 3:50 PM T [facility] Albumin/Globulin Ratio 0.8(L) 1.1 - 2.3 02/16/2022 3:50 PM [facility] Blood BLOOD SPECIMEN / Unknown Lab Venipuncture / Unknown 02/16/2022 2:26 PM CDT 02/16/2022 3:20 PM CDT Amos Pabon MD LAB - CHEMISTRY KURT ZARAGOZA [facility] Organization Address City/State/ZIP Co de Phone Number [facility] [address] [place] [address], [facility] [phone] * (ABNORMAL) VITAMIN D 25-HYDROXY (12/19/2021 1:35 AM CAR MOVER) [facility] Vitamin D, 25 Hydroxy 7.0(L) 30.0 - 80.0 ng/mL 12/19/2021 2:30 AM CAR MOVER [facility] Comment: The recommendations for 25-Hydroxy Vitamin [...] Lab Venipuncture / Unknown 12/19/2021 1:35 AM CAR MOVER 12/19/2021 1:46 AM CAR MOVER Anastasia Chowdhury MATH AND PHYSICS INSTRUCTOR-DESIZING MACHINE OFFBEARER LAB - CHEMISTR Y ORDERABLES Performing Organization Address [facility]/State/ZIP Co de Phone Number [address] [address], [facility] [phone] * CT HIP LEFT WO CONTRAST (12/18/2021 6:44 AM CAR MOVER) Anatomical Region Laterality Modality Lower Extremity Computed Tomogra phy 12/18/2021 6:48 AM CAR MOVER Impressions 12/18/2021 8:00 AM CAR MOVER Impression: Displaced left femoral neck fracture, age-indeterminate. Cannot exclude a small posterior-superior acetabular wall fracture. See comments above. Report drafted by Shaun Marie (resident) I, Dr. VALENTE MCDUFFIE MD have personally reviewed and interpreted this examination/study. This report was electronically signed by VALENTE MCDUFFIE MD ??on 12/18/2021 8:00 AM . Narrative 12/18/2021 8:00 AM CAR MOVER Procedure Information DATE: 12/18/2021 6:45 AM EXAMINATION: [...] URINE DRUG SCREEN IMMUNOASSAY (12/18/2021 4:57 AM CAR MOVER) [facility] Amphetamines Screen Urine Positive(A) Negative : < 1000 ng/mL 12/18/2021 5:21 AM [address] [facility] Comment: Positive urine amphetamine screening results should be confirmed by another generally accepted non-immunological method such as gas chromatography or mass spectrometry. ? Barbiturates Screen Urine Negative Negative : < 200 ng/mL 12/18/2021 5:21 AM [facility] Benzodiazepine Screen Urine Negative Negative : < 200 ng/mL 12/18/2021 5:21 AM [facility] Opiates Urine Positive(A) Negative : < 300 ng/mL 12/18/2021 5:21 AM [facility] Comment:Positive urine opiat e screening results should be confirmed by another generally accepted non-immunological method such as gas chromatography or mass spectrometry. Cocaine Metabolites Urine Negative Negative : < 300 ng/mL 12/18/2021 5:21 AM [facility] Phencyclidine Screen Urine Negative Negative : < 25 ng/ml 12/18/2021 5:21 AM [facility] Cannabinoids Screen Urine Positive(A) Negative : <50 ng/mL 12/18/2021 5:21 AM [facility] Comment:Positive urine canna binoids (THC) screening results should be confirmed by another generally accepted non-immunological method such as gas chromatography or mass spectrometry. Methadone Screen Urine Negative Negative : < 300 ng/mL 12/18/2021 5:21 AM [facility] Fentanyl Screen Urine Positive(A) Negative : <1.0 ng/mL 12/18/2021 5:21 AM [facility] Comment:Positive urine fenta nyl screening results should be confirmed by another generally accepted non-immunological method such as gas chromatography or mass spectrometry. Urine URINE / Unknown Collection / Unknown 12/18/2021 4:57 AM [facility] 12/18/2021 4:59 AM [facility] - 12/18/2021 5:21 AM [facility] The Urine Toxicology Screening Panel does not screen for Propoxyphene, Meprobamate, Carisoprodol, Trazodone, lvva-hjb-pijhfnt medications and/or volatiles (Acetone, Isopropanol, Methanol or Ethylene Glycol). Ethanol, Salicylate, Acetaminophen, Tricyclic Antidepressants and several therapeutic drugs may be individually assayed in serum or plasma specimen. Toxicology testing by the [facility] is an aid to medical diagnosis and treatment of patients. No documented chain of custody was maintained. Results are intended to be used for clinical purposes only. ? Lima Thompson MD LAB - URINE CHEMISTR Y ORDERABLES Performing Organization Address [facility] de Phone Number [facility] [address] [place] [address], [facility] [phone] * BLOOD TYPE VERIFICATION (12/18/2021 4:44 AM CAR MOVER) [facility] ABO Rh B POS 12/18/2021 5:1 9 AM [facility] Blood Bank BLOOD SPECIMEN / Unknown Lab Venipuncture / Unknown 12/18/2021 4:44 AM CAR MOVER 12/18/2021 4:51 AM CAR MOVER Lima Thompson MD LAB - BLOOD BANK ORD ERABLES Performing Organization Address [facility] de Phone Number [facility] [address] [place] [address], [place] [phone] * SARS-COV-2 (COVID-19)+INFLU A+B PCR RAPID (12/18/2021 4:17 AM CAR MOVER) [facility] COVID-19 PCR Not detected Not detected 12/18/19 6:44 AM [facility] Influenza A Rapid MISAEL Not Detected Not Detected 12/18/2021 6:44 AM [facility] Influenza B MISAEL Rapid Not Detected Not Detected 12/18/2021 6:44 AM CAR MOVER [facility] Microbiology SPECIMEN FROM NASOPHARYNGEAL STRUCTURE / Unknown Collection / Unknown 12/18/2021 4:17 AM CAR MOVER 12/18/2021 6:15 AM CAR MOVER Narrative [facility] - 12/18/2021 6:44 AM CAR MOVER Influenza assay performed by [employer]. [...] acid amplification assay performance was validated by [facility]. This test has been authorized by [...] Thompson MD LAB - MICROBIOLOGY O RDERABLES [facility] [address] [place] [address], [facility] [phone] * TYPE + SCREEN PANEL (12/18/2021 4:17 AM CAR MOVER) Antibody Screen NEG 5:14 AM CAR M[facility] ABO Rh B POS 12/18/2021 5:14 AM CAR M[facility] Blood Bank BLOOD SPECIMEN / Unknown Venipuncture / Unknown 12/18/2021 4:17 AM CAR MOVER 12/18/2021 4:29 AM CAR MOVER Lima Thompson MD LAB - BLOOD BANK ORD ERABLES [facility] [address] [place] [address], [facility] [phone] * XR PELVIS W LEFT HIP 2VW (12/17/2021 11:05 PM CAR MOVER) Anatomical Region Laterality Modality Pelvis Radiographic Юлия ging 12/17/2021 11:0 6 PM CAR MOVER Impressions 12/18/2021 10:05 AM CAR MOVER IMPRESSION: Superolaterally displaced fracture of the left femoral neck. Report dictated by Shama Landry M.D. (nursing resident). I, Dr. ALO VAZQUEZ MD, FR have personally reviewed and interpreted this examination/study. This report was electronically signed by ALO VAZQUEZ MD, FRCR ??on 12/18/2021 10:05 AM . Narrative 12/18/2021 10:05 AM CAR MOVER EXAMINATION: XR PELVIS W LEFT HIP 2VW [...] left femoral neck. Report dictated by Shama aLndry M.D. (nursing resident). IDr. ALO MD, [facility] have personally reviewedand interpreted this examination/study. This report was electronically signed by ALO VAZQUEZ MD, [facility] on 12/18/2021 10:05 AM . Lima Thompson MD DIAGNOSTIC IMAGING O RDERABLES * TIFFANY BLOOD SCREEN W/REFLEX TITER (10/01/2021 11:38 AM CAR MOVER) TIFFANY IgG None Detected None Detected 10/04/2021 12:34 AM CAR MOVER [employer] ([facility]) Comment: If suspicion of connective tissue disease is strong and TIFFANY EIA is negative, consider testing for TIFFANY by IFA ([id number]). INTERPRETIVE INFORMATION: Anti-Nuclear Antibodies (TIFFANY), IgG by SAVANNAH Antinuclear Antibodies (TIFFANY), IgG by SAVANNAH: TIFFANY specimens are screened using enzyme-linked immunosorbent assay (SAVANNAH) methodology. All SAVANNAH results reported as Detected are further tested by indirect fluorescent assay (IFA) using HEp-2 substrate with an IgG-specific conjugate. The TIFFANY SAVANNAH screen is designed to detect antibodies against dsDNA, histones, SS-A (Ro), SS-B (La), Clayton, Clayton/AFFILIATE MARKETING MANAGER, Scl-70, Nuris-1, centromeric proteins, other antigens extracted from the HEp-2 cell nucleus. TIFFANY SAVANNAH assays have been reported to have lower sensitivities than TIFFANY IFA for systemic autoimmune rheumatic diseases (SARD). Negative results do not necessarily rule out SARD. Performed By: [employer] [address] [place] [address] Industrial Real Estate Agent: Ivanna Ballard MD Blood BLOOD SPECIMEN / Unknown Lab Venipuncture / Unknown 10/01/2021 11:38 AM CAR MOVER 10/01/2021 11:45 AM CAR MOVER Amos Pabon MD LAB - CHEMISTRY KURT ZARAGOZA [facility] Organization Address City/State/ZIP Co de Phone Number [employer] [facility]) [address] [place] [address], [facility] * [id number]-7-[id number] BLOOD (10/01/2021 11:38 AM CAR MOVER) Nwgtj-7-Pttawh ypsin 159 90 - 200 mg/dL 10/01/2021 12:55 PM [facility] Blood BLOOD SPECIMEN / Unknown Lab Venipuncture / Unknown 10/01/2021 11:38 AM CAR MOVER 10/01/2021 11:46 AM CAR MOVER Amos Pabon MD LAB - CHEMISTRY KURT ZARAGOZA Performing Organization Address City/[facility]/ZIP Co de Phone Number [address] [address], [facility] [phone] * (ABNORMAL) IRON BLOOD (10/01/2021 11:38 AM CAR MOVER) Pathologist [facility] Iron 17(L) 50 - 175 ug/dL 10/01/2021 12:55 PM [facility] Blood BLOOD SPECIMEN / Unknown Lab Venipuncture / Unknown 10/01/2021 11:38 AM CAR MOVER 10/01/2021 11:46 AM CAR MOVER Amos Pabon MD LAB - CHEMISTRY KURT ZARAGOZA Performing Organization Address [facility] Co de Phone Number [address] [address], [facility] [phone] * (ABNORMAL) HEPATITIS B SURFACE ANTIBODY (10/01/2021 11:38 AM CAR MOVER) Pathologist [facility] Hepatitis B Virus Surface Antibody Reactive( A) Non-react young 10/01/2021 1:14 PM [facility] Comment: > 12 mIU/mL Hepatitis B surface Antibody (HBsAb). Reactive for HBsAb - individual is considered immune to Hepatitis B Virus infection. Hepatitis B Surface Antibody Quantitative 50.9(H) <8.0 mIU/mL 10/01/2021 1:14 PM [facility] Comment: Hepatitis B Surface Antibody Numeric Result Interpretation: ? Nonreactive: ?<8.0 mIU/mL ? Indeterminate: ??8.0 - 12.0 mIU/mL ? Reactive: ?>12.0 mIU/mL ? Blood BLOOD SPECIMEN / Unknown Lab Venipuncture / Unknown 10/01/2021 11:38 AM CAR MOVER 10/01/2021 11:46 AM CAR MOVER Amos Pabon MD LAB - CHEMISTRY KURT ZARAGOZA Performing Organization Address City/[facility]/ZIP Co de Phone Number [address] [address], [place] [phone] * HEPATITIS B CORE ANTIBODY (10/01/2021 11:38 AM CAR MOVER) HBc Antibody Total Non-reacti ve Non-reacti ve 10/01/2021 1:14 PM CAR MOVER [facility] Blood BLOOD SPECIMEN / Unknown Lab Venipuncture / Unknown 10/01/2021 11:38 AM CAR MOVER 10/01/2021 11:46 AM CAR MOVER Amos Pabon MD LAB - CHEMISTRY KURT ZARAGOZA Performing Organization Address [facility] Co de Phone Number [address] [address], [place] [phone] * HEPATITIS B SURFACE ANTIGEN W RFLX CONFIRMATION (10/01/2021 11:38 AM CAR MOVER) Hepatitis B Virus Surface Antigen Non-reacti ve Non-reacti ve 10/01/2021 1:14 PM CAR MOVER [facility] Blood BLOOD SPECIMEN / Unknown Lab Venipuncture / Unknown 10/01/2021 11:38 AM CAR MOVER 10/01/2021 11:46 AM CAR MOVER Amos Pabon MD LAB - CHEMISTRY KURT ZARAGOZA Performing Organization Address City/[facility] Co de Phone Number [address] [address], [place] [phone] * (ABNORMAL) IGG BLOOD (10/01/2021 11:38 AM CAR MOVER) Pathologist [facility] IgG 2,513(H) 767-1,590 mg/dL 10/01/2021 12:55 PM CAR MOVER [facility] Blood BLOOD SPECIMEN / Unknown Lab Venipuncture / Unknown 10/01/2021 11:38 AM CAR MOVER 10/01/2021 11:46 AM CAR MOVER Amos Pabon MD LAB - CHEMISTRY KURT ZARAGOZA Performing Organization Address City/[facility]/ZIP Co de Phone Number [address] [address], [facility] [phone] * HEPATITIS C ANTIBODY (10/01/2021 11:38 AM CAR MOVER) [facility] Hepatitis C Antibody Non-react young Non-reac tive 10/01/2021 1:14 PM CAR MOVER [facility] Comment:Hepatitis C Antibody screen indicates no serologic evidence of past or current infection with Hepatitis C Virus. Patients with unexplained liver disease who are immunocompromised or suspected of having acute Hepatitis C infection may benefit from Nucleic Acid Test (MARIBELL) for Hepatitis C Viral RNA to confirm Hepatitis C status. Blood BLOOD SPECIMEN / Unknown Lab Venipuncture / Unknown 10/01/2021 11:38 AM CAR MOVER 10/01/2021 11:46 AM CAR MOVER Amos Pabon MD LAB - CHEMISTRY KURT ZARAGOZA Performing Organization Address [facility] Co de Phone Number [address] [address], [facility] [phone] * (ABNORMAL) HEPATITIS A ANTIBODY (10/01/2021 11:38 AM CAR MOVER) [facility] Hepatitis A Virus Antibody Total Positive( A) Negative 10/03/2021 5:38 PM CAR MOVER [employer] ([facility]) Comment: The positive anti-HAV is consistent with recent or remote Hepatitis A infection or antibody response to HAV vaccination. False positive anti-HAV can occur. Performed by [employer], [address] [place] [id number] [email or web address], Ivanna Ballard MD, Lab. Director Blood BLOOD SPECIMEN / Unknown Lab Venipuncture / Unknown 10/01/2021 11:38 AM CAR MOVER 10/01/2021 11:45 AM CAR MOVER Amos Pabon MD LAB - CHEMISTRY KURT ZARAGOZA [facility]) [address] * (ABNORMAL) FERRITIN (10/01/2021 11:38 AM CAR MOVER) Ferritin 19(L) 22 - 275 ng/mL 10/01/2021 1:14 PM CAR MOVER [facility] Blood BLOOD SPECIMEN / Unknown Lab Venipuncture / Unknown 10/01/2021 11:38 AM CAR MOVER 10/01/2021 11:46 AM CAR MOVER Amos Pabon MD LAB - CHEMISTRY KURT ZARAGOZA [facility] [address] [place] [address], [facility] [phone] Care Teams Pumper Gauger Apprentice Relationship Specialty Start Date End Date Teodoro Lopez PCP - General 05/17/24 Eric Oconnell MD Hospitalist 10/10/21
--- OUTSIDE RECORDS SUMMARY | 2024-11-05 08:50 | XMS_ITS | Encounter Summary ---
Author Organization [facility] Health Address [address] [facility] [place] [address] Care Team Providers Care Producer Arborist Manager Name Role Phone Eric Oconnell MD Unavailable [phone] Raya Carty PA-C Primary Care Provider Reason for Visit * Reason Onset Date Comments Pre-op Instructions 06/11/2022 Encounter Details Date Type Department Care Team (Late st Contact Info) Description 06/11/2022 Patient Outreach [facility] [address] [place] [phone] Sheridan Dorman RN Pre-op Instructions Social History [...] 1 hour prior to procedure time. Has salesperson driver (social service liaison) and has no further questions at this time. This pt is not taking blood thinning medications. documented in this encounter Plan of Treatment Upcoming Encounters Date Type Department Care Team (Late st Contact Info) Description 11/29/2024 8:30 AM ENGRAVER SIGNATURE Office Visit [facility] - Orthopedic Surgery [address] [facility] [place] [address] Toño Cabrera MD [address] [facility] [address] [place] [address] 01/08/2025 8:00 AM CDT Appointment [facility] [address] [place] [phone] 01/08/2025 9:00 AM CDT Office Visit [facility] - GI [address] [facility] [place] [address] Amos Pabon MD [facility] [facility] 2L [place] [address] documented as of this encounter Goals Goal [...] on filedocumented in this encounter Care Teams Producer Arborist Manager Relationship Specialty Start Date End Date Raya Carty PA-C [address] [place] [phone] PCP - General 06/09/22 07/05/22 Eric Oconnell MD Hospitalist 10/10/21 documented as of this encounter
--- OUTSIDE RECORDS SUMMARY | 2024-11-05 08:50 | XMS_ITS | Encounter Summary ---
Author Organization [facility] Health Address [address] [facility] [facility] [place] [address] Care Team Providers Care Cutting Room Supervisor Name Role Phone Eric Oconnell MD Unavailable [phone] Raya Carty PA-C Primary Care Provider Reason for Visit * Reason Comments Refill Request Encounter Details Date Type Department Care Team (Late st Contact Info) Description 06/11/2022 Refill [facility] - [address] [place] [phone] Nahed Quinonez RN Refill Request Social History [...] st Contact Info) Description 11/29/2024 8:30 AM ORBITREAD OPERATOR Office Visit [facility] - Orthopedic Surgery [address] [place] [address] Toño Cabrera MD [address] [facility] [address] [place] [address] 01/08/2025 8:00 AM CDT Appointment [facility] [address] [place] [address] 01/08/2025 9:00 AM CDT Office Visit [facility] - GI [address] [facility], [place] [phone] Amos Pabon MD [address] [place] [address] [place] [address] documented as of this encounter Goals Goal [...] on filedocumented in this encounter Care Teams Cutting Room Supervisor Relationship Specialty Start Date End Date Raya Carty PA-C [address] [place] [address] PCP - General 06/09/22 07/05/22 Eric Oconnell MD Hospitalist 10/10/21 documented as of this encounter
--- OUTSIDE RECORDS SUMMARY | 2024-11-05 08:50 | XMS_ITS | Encounter Summary ---
Author Organization [facility] Health Address [address] [facility] [place] [address] Care Team Providers Care Artificial Plastic Eye Maker Name Role Phone Eric Oconnell MD Unavailable [phone] Raya Carty PA-C Primary Care Provider Reason for Visit * Reason Onset Date Comments Question 07/02/2022 Encounter Details Date Type Department Care Team (Late st Contact Info) Description 07/02/2022 Telephone [facility] - Nephrology [address] [facility] [place] [phone] Ellyn Payne RN Question Social History Tobacco [...] PM CDT Received call from Nurse at [facility]. Pt's Xifaxan needs PA. Inquiring if form has been received and sent back to Medicaid. Would like a call when form has been completed and Xifaxan has been approved. Contact #[phone] documented in this encounter Plan of Treatment Upcoming Encounters Date Type Department Care Team (Late st Contact Info) Description 11/29/2024 8:30 AM SUPERVISOR PLEATING Office Visit [facility] - Orthopedic Surgery [address] [place] [address] Toño Cabrera MD [address] [facility] [address] [place] [address] 01/08/2025 8:00 AM CDT Appointment [facility] [address] [place] [address] 01/08/2025 9:00 AM CDT Office Visit [facility] - GI [address] [facility], [place] [phone] Amos Pabon MD [address] [place] [address] [place] [address] documented as of this encounter Goals Goal [...] on filedocumented in this encounter Care Teams Artificial Plastic Eye Maker Relationship Specialty Start Date End Date Raya Carty PA-C [address] [place] [phone] PCP - General 06/09/22 07/05/22 Eric Oconnell MD Hospitalist 10/10/21 documented as of this encounter
--- OUTSIDE RECORDS SUMMARY | 2024-11-05 08:50 | XMS_ITS | Encounter Summary ---
Author Organization [facility] Health Address [address] [facility] [place] [address] Care Team Providers Care Auction Assistant Name Role Phone Eric Oconnell MD Unavailable [phone] Gregorio James MD Primary Care Provider [phone] Reason for Visit * Reason Comments Pain Knee Lt Encounter Details Date Type Department Care Team (Latest Contact Info) Description 06/29/2023 9:00 AM CDT Office Visit [facility] - Orthopedic Surgery [address] [place] [phone] Toño Cabrera MD [address] [phone] Primary osteoarthritis of left knee (Primary Dx) [...] CDTAssociated Order(s): PROC INJECTION JOINT (SMALL/INTERMED/MAJOR) Procedure(s): MN DRAIN/INJECT LARGE JOINT/BURSA Pre-Procedure Diagnose(s): Primary osteoarthritis of left knee Orthopaedic Surgery Procedure Note Lukas Diaz [id number] Diagnosis: Left knee pain Procedure: Injection of [...] st Contact Info) Description 11/29/2024 8:30 AM MUD MIXER OPERATOR Office Visit [facility] - Orthopedic Surgery [address] [facility] [place] [address] Toño Cabrera MD [address] [facility] [address] [place] [address] 01/08/2025 8:[address] [facility] [address] [place] [phone] 01/08/2025 9:00 AM CDT Office Visit [facility] - GI [address] [facility], [place] [phone] Amos Pabon MD [address] [place] [address] [place] [address] documented as of this encounter Goals Goal [...] Procedure Name Priority Date/Time Associated Diagnosis Comments MN DRAIN/INJECT LARGE JOINT/BURSA Routine 06/29/2023 9:27 AM CDT Primary osteoarthritis of left knee documented in this encounter Results * MN DRAIN/INJECT LARGE JOINT/BURSA (06/29/2023 9:27 AM CDT) Narrative Toño Cabrera MD - 06/29/2023 9:27 AM CDT Toño Cabrera MD ? 06/29/2023 ??3:12 PM Orthopaedic Surgery Procedure Note Lukas Diaz [id number] Diagnosis: Left knee pain Procedure: Injection of [...] Knee documented in this encounter Care Teams Auction Assistant Relationship Specialty Start Date End Date Gregorio James MD [address] [place] [phone] PCP - General 08/11/22 05/16/24 Eric Oconnell MD Hospitalist 10/10/21 documented as of this encounter
--- OUTSIDE RECORDS SUMMARY | 2024-11-05 08:50 | XMS_ITS | Encounter Summary ---
Author Organization [facility] Address [address] [facility] [place] [address] Care Team Providers Care Leasing Consultant Name Role Phone Eric Oconnell MD Unavailable [phone] Gregorio aJmes MD Primary Care Provider [phone] Encounter Details Date Type Department Care Team [...] st Contact Info) Description 11/29/2024 8:30 AM CONTENT DEVELOPMENT MANAGER Office Visit [facility] - Orthopedic Surgery [address] [facility] [place] [address] Toño Cabrera MD 1031 [facility] 280 [place] [address] 01/08/2025 8:00 AM CDT Appointment [facility] 1201 [place] [phone] 01/08/2025 9:00 AM CDT Office Visit [facility] - GI 1225 [facility], [place] [address] Amos Pabon MD [address] [place] [address] 2L [facility] [place] [address] documented as of this encounter Goals Goal [...] on filedocumented in this encounter Care Teams Leasing Consultant Relationship Specialty Start Date End Date Gregorio James MD [address] [place] [phone] PCP - General 08/11/22 05/16/24 Eric Oconnell MD Hospitalist 10/10/21 documented as of this encounter
--- OUTSIDE RECORDS SUMMARY | 2024-11-05 08:50 | XMS_ITS | Encounter Summary ---
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 Procedures ND ED EGD FLEX TRANSORAL DX ND EGD FLEX TRANSORAL W BX SNGL OR MULT ESOPHAGOGASTRODUODENOSCOPY (EGD) DIAGNOSTIC Referral ID Status Reason Start Date Expiration Date Visits Re quested Visits Authorized [id number] 1 1 Encounter Details Date Type Department Care Team (Late st Contact Info) Description 06/18/2022 9:13 AM CDT Anesthesia Event [facility] [address] [place] [phone] Madalyn Luna MD [address] [place] [address] [place] [phone] Alicia Garcia, SYSTEM DEVELOPMENT ENGINEER-FULL STACK JAVA DEVELOPER [address] [place] [address] Anesthesia Record Procedure Summary Procedure [...] procedural Anesthetic Plan was discussed with the FULL STACK JAVA DEVELOPER and retail event assistant. BMI, Height, Weight Tobacco History Estimated [...] ??? ENDOSCOPY, UPPER N/A 03/05/2022 N/A; EGD RISK MANAGEMENT INTERNSHIP Status: No LMP for male patient. unknown OB History No obstetric history on file. Covid Vaccine: Lab Results: No results found for requested labs within last 120 days. No results found for requested labs within last 120 days. documented in this encounter Miscellaneous Notes * Anesthesia Transfer of Care - Jose Alicia N, SYSTEM DEVELOPMENT ENGINEER-FULL STACK JAVA DEVELOPER - 06/18/2022 9:42 AM CDT ANESTHESIA TRANSFER [...] report from the receiving PACUteam. Alicia Garcia APRN-FULL STACK JAVA DEVELOPER documented in this encounter Plan of Treatment Upcoming Encounters Date Type Department Care Team (Late st Contact Info) Description 11/29/2024 8:30 AM LEGAL DEPARTMENT MANAGER Office Visit [facility] - Orthopedic Surgery [address] [facility] [place] [phone] Toño Cabrera MD 1031 [facility] 280 [place] [address] 01/08/2025 8:00 AM CDT Appointment [facility] 1201 [place] [phone] 01/08/2025 9:00 AM CDT Office Visit [facility] - GI 1225 [facility], [place] [phone] Amos Pabon MD [facility] [place] [address] documented as of this encounter Goals Goal [...] mg documented in this encounter Care Teams Control Officer Relationship Specialty Start Date End Date Raya Carty PA-C [address] [place] [phone] PCP - General 06/09/22 07/05/22 Eric Oconnell MD Hospitalist 10/10/21 documented as of this encounter
--- OUTSIDE RECORDS SUMMARY | 2024-11-05 08:50 | XMS_ITS | Encounter Summary ---
Author Organization [facility] Address [address] [facility] [place] [address] Care Team Providers Care Hub Inventory Specialist Name Role Phone Eric Oconnell MD Unavailable [phone] Gregorio James MD Primary Care Provider [phone] Encounter Details Date Type Department Care Team (Latest Contact Info) Description 08/11/2022 9:00 AM CDT - 08/11/2022 11:59 PM CDT Hospital Encounter [facility] - Orthopedics [address] [place] [phone] Toño Cabrera MD [address] [place], [place] [phone] Discharge Disposition: Home or Self Care Social [...] Contact Info) Description 11/29/2024 8:30 AM LEAD GENERATION REPRESENTATIVE Office Visit [facility] - Orthopedic Surgery 1031 [place] [address] Toño Cabrera MD 1031 [facility] 280 [place] [address] 01/08/2025 8:00 AM CDT Appointment [facility] 1201 [place] [address] 01/08/2025 9:00 AM CDT Office Visit [facility] - GI 1225 [facility], [place] [address] Amos Pabon MD [address] [place] [address] [place] [address] documented as of this encounter Goals Goal [...] DATE/TIME OF EXAM: ??08/11/2022 9:22 AM, LOCATION ??[facility] INDICATION: M25.562: Pain in left knee [...] MORE, DATE/TIME OF EXAM: 29:22 AM, LOCATION [facility] INDICATION: M25.562: Pain in left knee [...] chronicity documented in this encounter Care Teams Hub Inventory Specialist Relationship Specialty Start Date End Date Gregorio James MD [address] [place] [phone] PCP - General 08/11/22 05/16/24 Eric Oconnell MD Hospitalist 10/10/21 documented as of this encounter
--- OUTSIDE RECORDS SUMMARY | 2024-11-05 08:50 | XMS_ITS | Encounter Summary ---
Author Organization [facility] Address [address] [facility] [place] [address] Care Team Providers Care Preschool Teacher Name Role Phone Eric Oconnell MD Unavailable [phone] Gregorio James MD Primary Care Provider [phone] Reason for Referral * Radiology Services (Routine) - Closed Specialty Diagnoses / Procedures Referred By Rod young Referred To Contact Ultrasound Diagnoses Cirrhosis of liver with ascites, unspecified hepatic cirrhosis type (HCC) Procedures US ABDOMEN LIMITED Klarissa Rutledge APRN-CNP [address] [place] [address] [address] [place] [address] [place] [address] [place] [address] Referral ID Status Reason Start Date Expiration Date Visits Re quested Visits Authorized [id number] Closed 02/19/2023 02/19/2024 1 1 Reason for Visit * Reason Comments Cirrhosis Encounter Details Date Type Department Care Team (Late st Contact Info) Description 02/19/2023 10:30 AM CDT Office Visit [facility] - [address], [place] [phone] Klarissa Rutledge APRN-CNP [address] [place] [address] [address] [place] [address] Cirrhosis of liver with ascites, [...] encounter Patient Instructions * Patient Instructions* Klarissa Ruteldge APRN-CNP - 02/19/2023 11:23 AM CDT blood work and ultrasound soon locally Continue lactulose and xifaxin Continue furosemide and spironolactone Return to the liver clinic in 6 months with ultrasound same day. I encourage complete abstinence from alcohol documented in this encounter Progress Notes * Klarissa Rutledge APRN-CNP - 02/19/2023 11:02 AM CDT I saw Mr. Diaz in [facility] at [facility] today for follow up visit regarding: Past [...] dental work required prior. He resides at [facility] d/t cirrhosis and femur fracture. He had recent hospitalization at [facility] for hallucinations, reportedly auditory and visual hallucinations. [...] 6 months. Copy to: Gregorio James MD [address] [place] [phone] EMILY Cisneros [facility] Division of Gastroenterology and Hepatology Collaborating [...] st Contact Info) Description 11/29/2024 8:30 AM ASSEMBLY MACHINE TENDER Office Visit [facility] - [facility] [address] [facility] [place] [address] Toño Cabrera MD 1031 [facility] 280 [place] [address] 01/08/2025 8:00 AM CDT Appointment [address] [phone] 01/08/2025 9:00 AM CDT Office Visit [facility] - GI 1225 [facility], [place] [address] Amos Pabon MD [address] [place] [address] [place] [address] Scheduled Orders Name Type Priority Associated Diagnoses [...] months. Report dictated by Hany Cornelius MD, (enrollment services vice president). I, Bina Perez MD have personally reviewed and interpreted this examination/study. > Interpreting Provider: Bina Perez MD on 08/25/2023 10:18 AM Narrative 08/25/2023 10:18 AM CDT PROCEDURE: ??US ABDOMEN LIMITED, DATE/TIME OF EXAM: ??08/25/2023 7:53 AM, LOCATION ??[facility] INDICATION: K74.60: Cirrhosis of liver with [...] OF EXAM: 08/25/2023 7:53 AM, LOCATION [facility] INDICATION: K74.60: Cirrhosis of liver with [...] months. Report dictated by Hany Cornelius MD, (enrollment services vice president). I, Bina Perez MD have personally reviewed and interpreted this examination/study. > Interpreting Provider: Bina Perez MD on 08/25/2023 10:18 AM Klarissa Richey Rutledge BUFFING AND POLISHING WHEEL REPAIRER-JIG AND FIXTURE MAKER US ORDERABL ES documented in this encounter Visit Diagnoses Diagnosis Cirrhosis of liver with ascites, unspecified hepatic cirrhosis type (HCC)- Primary Cirrhosis of liver with ascites, unspecified hepatic cirrhosis type (HCC) documented in this encounter Care Teams Preschool Teacher Relationship Specialty Start Date End Date Gregorio James MD [address] [place] [phone] PCP - General 08/11/22 05/16/24 Eric Oconnell MD Hospitalist 10/10/21 documented as of this encounter
--- OUTSIDE RECORDS SUMMARY | 2024-11-05 08:50 | XMS_ITS | Encounter Summary ---
Author Organization [facility] Address [address] [facility] [place] [address] Care Team Providers Care Freight Caller Name Role Phone Eric Oconnell MD Unavailable [phone] Raya Carty PA-C Primary Care Provider Encounter Details Date Type Department Care Team (Late st Contact Info) Description 06/19/[address] [facility] 12[address] [place] [phone] Kaila Charlton, ALFREDO Social History Tobacco Use [...] st Contact Info) Description 11/29/2024 8:30 AM CLOTHES SEPARATOR Office Visit [facility] - Orthopedic Surgery 1031 [place] [address] Toño Cabrera MD [address] [address] 01/08/2025 8:00 AM CDT Appointment [facility] 1201 [place] [phone] 01/08/2025 9:00 AM CDT Office Visit [facility] - GI 1225 [facility], [place] [phone] Amos Pabon MD [address] [place] [address] [place] [address] documented as of this encounter Goals Goal [...] on filedocumented in this encounter Care Teams Freight Caller Relationship Specialty Start Date End Date Raya Carty PA-C [address] [place] [phone] PCP - General 06/09/22 07/05/22 Eric Oconnell MD Hospitalist 10/10/21 documented as of this encounter
--- OUTSIDE RECORDS SUMMARY | 2024-11-05 08:50 | XMS_ITS | Encounter Summary ---
Author Organization [facility] Address [address] [facility] [place] [address] Care Team Providers Care Facility Service Associate Name Role Phone Major Kraft MD Primary Care Provider [phone] Eric Oconnell MD Unavailable [phone] Reason for Visit * Auth/Cert Specialty Diagnoses / Procedures Referred By Rod t Referred To Contact Diagnoses Other cirrhosis of liver (HCC) Other cirrhosis of liver [K74.69] Procedures AR ED EGD FLEX TRANSORAL DX AR EGD FLEX TRANSORAL W BX SNGL OR MULT ESOPHAGOGASTRODUODENOSCOPY (EGD) DIAGNOSTIC Referral ID Status Reason Start Date Expiration Date Visits Re quested Visits Authorized [id number] 1 1 Encounter Details Date Type Department Care Team (Latest Contact Info) Description 03/05/2022 8:57 AM CDT - 03/05/2022 10:46 AM CDT Hospital Encounter [facility] [address] [place] [phone] Amos Pabon MD 1225 [facility] 2L [facility] [place] [address] Surgery General Discharge Disposition: Senior Living Facility Social History Tobacco Use Types Packs/Day [...] ask them during your visits. ?? Copyright [employer] 2020 Information is for End User's use only and may not be sold, redistributed or otherwise used for commercial purposes. All illustrations and images included in CareNotes?? are the copyrighted property of [employer], [employer]. or [employer] The above information is an educational resource center teacher only. It is not intended as medical [...] 02/19/2023 vitamin D, ergocalciferol, (DRISDOL) 1.25 MG (93052 UT) capsule Take 1 (one) capsule by [...] ??? vitamin D, ergocalciferol, (DRISDOL) 1.25 MG (11305 UT) capsule Take 1 (one) capsule by [...] acute cholecystitis. Dictated by Lawrence Meyers D.O. (Manager People) I, Dr. CLIFFORD COTA M.D. have pers [...] st Contact Info) Description 11/29/2024 8:30 AM AGENT LICENSING CLERK Office Visit [facility] - Orthopedic Surgery [address] [facility] [place] [address] Toño Cabrera MD 1031 [facility] 280 [place] [address] 01/08/2025 8:00 AM CDT Appointment [facility] 12[address] [place] [phone] 01/08/2025 9:00 AM CDT Office Visit [facility] - GI 1225 [facility], [place] [phone] Amos Pabon MD [address] [place] [address] 2L [facility] [place] [place] [address] documented as of this encounter Goals Goal [...] AM CDT Other cirrhosis of liver (HCC) AR ED EGD FLEX TRANSORAL DX 03/05/2022 9:43 AM CDT Other cirrhosis of liver (HCC) Special Needs at long-term EGD Routine 03/05/2022 9:23 AM CDT documented in this encounter Results * PATHOLOGY TISSUE (03/05/2022 9:47 AM CDT) Case Report Surgical Pathology Report ? Case: [id number] ? Authorizing Provider: ??Amos Pabon MD ?Collected: [...] pylori organisms (H&E examination) 03/06/2022 12:19 PM [facility] Microscopic Description and Comment Microscopic examination substantiates the final diagnosis. 03/06/2022 12:19 PM [facility] Clinical History The patient is [...] cassette A1. DF 03/06/2022 12:19 PM T [facility] Disclaimer The performance characteristics of [...] attending (teaching) pathologist. 03/06/2022 12:19 PM T [facility] Embedded Images 03/06/2022 12:19 PM T [facility] Biopsy, NOS GASTRIC CONTENTS SPECIMEN / Unknown 03/05/2022 9:47 AM CDT 03/05/2022 11:35 AM CDT Comment:Pre-op diagnosis: Other cirrhosis of liver [K74.69] Amos Pabon MD LAB - PATHOLOGY/CYTO LOGY ORDERABLES Performing Organization Address [facility]/State/[facility] Co de Phone Number [facility] [address] [place], [place] [phone] [place] [address] * EGD (03/05/2022 9:23 AM CDT) Report [...] Procedure Code(s): ? --- Professional --- ? 16007, Esophagogastroduode noscopy, flexible, transoral; with biopsy, ? single or multiple Diagnosis Code(s): ?--- Professional --- ?K21.0, Gastro-esophageal reflux disease with ?esophagitis ?K22.8, Other specified diseases of esophagus ?K25.9, Gastric ulcer, unspecified as acute or ?chronic, without hemorrhage or perforation ?I85.00, Esophageal varices without bleeding CPT copyright 2019 [employer]. All rights reserved. The codes documented in this report are preliminary and upon rn labor delivery review may be revised to meet current compliance requirements. Amos Pabon, 03/05/2022 9:59:19 AM Note Initiated On: 03/05/2022 9:23 AM Number of Addenda: 0 ? [facility] ? [address] [place], [place] [id number] [place] [address] PROVATION 03/05/2022 9:23 AM CDT Amos Pabon MD GI PROCEDURE ORDERAB LES [facility] [employer] documented in this encounter Visit Diagnoses [...] (GI) documented in this encounter Care Teams Facility Service Associate Relationship Specialty Start Date End Date Major Kraft MD PCP - General 07/01/21 06/08/22 Eric Oconnell MD Hospitalist 10/10/21 documented as of this encounter
--- OUTSIDE RECORDS SUMMARY | 2024-11-05 08:50 | XMS_ITS | Encounter Summary ---
Author Organization [facility] Address [address] [facility] [place] [address] Care Team Providers Care Computed Tomography Scanner Operator Name Role Phone Eric Oconnell MD Unavailable [phone] Raya Carty PA-C Primary Care Provider Reason for Visit * Reason Comments Medication Problem Refill Request Encounter Details Date Type Department Care Team (Late st Contact Info) Description 06/11/2022 Refill [facility] - [address] [facility] [place] [phone] Nahed Quinonez RN Medication Problem; Refill Request [...] Contact Info) Description 11/29/2024 8:30 AM CUSTOMER ACCOUNT REPRESENTATIVE Office Visit [facility] - Orthopedic Surgery 10[address] [facility] [place] [address] Toño Cabrera MD [address] [facility] 280 [place] [address] 01/08/2025 8:00 AM CDT Appointment [facility] 1201 [place] [address] 01/08/2025 9:00 AM CDT Office Visit [facility] - GI 1225 [facility], [place] [phone] Amos Pabon MD [address] [place] [address] [place] [address] documented as of this encounter Goals Goal [...] on filedocumented in this encounter Care Teams Computed Tomography Scanner Operator Relationship Specialty Start Date End Date Raya Carty PA-C 1215 [place] [address] PCP - General 06/09/22 07/05/22 Eric Oconnell MD Hospitalist 10/10/21 documented as of this encounter
--- OUTSIDE RECORDS SUMMARY | 2024-11-05 08:50 | XMS_ITS | Encounter Summary ---
Author Organization [facility] Address [address] [facility] [place] [address] Care Team Providers Care Seam Checker Name Role Phone Eric Oocnnell MD Unavailable [phone] Gregoiro James MD Primary Care Provider [phone] Reason for Visit * Reason Comments Pain Knee Encounter Details Date Type Department Care Team (Latest Contact Info) Description 02/16/2023 11:45 AM CDT Office Visit [facility] 1031 [place] [address] Toño Cabrera MD [address] [address] Primary osteoarthritis of left knee (Primary Dx); [...] knee Orthopaedic Surgery Procedure Note Lukas Diaz [id number] Diagnosis: Left knee pain Procedure: Injection of [...] Info) Description 11/29/2024 8:30 AM VICE PRESIDENT Office Visit [facility] - Orthopedic Surgery 1031 [place] [address] Toño Cabrera MD 1031 [facility] 280 [place] [address] 01/08/2025 8:00 AM CDT Appointment [facility] 1201 [place] [address] 01/08/2025 9:00 AM CDT Office Visit [facility] - GI 1225 [facility], [place] [phone] Amos Pabon MD [address] [place] [address] [place] [address] documented as of this encounter Goals Goal [...] Diagnosis Comments [place] DRAIN/INJECT LARGE JOINT/BURSA Routine 02/16/2023 12:00 PM CDT Primary osteoarthritis of left knee documented in this encounter Results * [place] DRAIN/INJECT LARGE JOINT/BURSA (02/16/2023 12:00 PM CDT) Narrative Toño Cabrera MD - 02/16/2023 12:00 PM CDT Toño Cabrera MD ? 02/18/2023 ??3:47 PM Orthopaedic Surgery Procedure Note Lukas Diaz [id number] Diagnosis: Left knee pain Procedure: Injection of [...] Knee documented in this encounter Care Teams Seam Checker Relationship Specialty Start Date End Date Gregorio James MD [address] [place] [phone] PCP - General 08/11/22 05/16/24 Eric Oconnell MD Hospitalist 10/10/21 documented as of this encounter
--- OUTSIDE RECORDS SUMMARY | 2024-11-05 08:50 | XMS_ITS | Encounter Summary ---
Author Organization [facility] Health Address [address] [place] [address] Care Team Providers Care Rubber Compounder Name Role Phone Major Kraft MD Primary Care Provider + [phone] Eric Oconnell MD Unavailable + [phone] Reason for Visit * Reason Onset Date Comments Pre-op Instructions 02/27/2022 Encounter Details Date Type Department Care Team (Late st Contact Info) Description 02/27/2022 Patient Outreach [facility] ENDOSCOPY [address] [place] [phone] Sheridan Dorman RN Pre-op Instructions Social History [...] encounter Miscellaneous Notes * Telephone Encounter - Shreidan Dorman RN - 02/27/2022 10:08 AM CDT Pt at [facility]. He confirms his appt. He report he understands instructions and gisell will be his electric lift truck driver. Refaxed info Patient: Lukas Diaz 83 [...] on it. ?? -You MUST have a electric lift truck driver to drive you home. (You can NOT take a bus, cab, LYFT or UBER) ?? -You will be at our facility from start to finish (registration, pre op, procedure, recovery) for approximately 4 hours total. ?? -Your procedure will be in our [facility]. The new address will be at [address] [place] [address]. [address] to the new parking garage. ?? -Come in on the ORANGE elevators of the parking garage. Endoscopy is on the LEVEL 1 of the hospital. [facility] ?? -Please bring a current list of your medications ?? -Main endoscopy department number is [phone] ?? Prior to arrival, we will need to be aware of any recent COVID exposures or symptoms. Masks are required while in the hospital documented in this encounter Plan of Treatment Upcoming Encounters Date Type Department Care Team (Late st Contact Info) Description 11/29/2024 8:30 AM SENSITOMETRIST Office Visit [facility] - Orthopedic Surgery [address] [place] [address] Toño Cabrera MD 1031 [facility] [address] [place] [address] 01/08/2025 8:00 AM CDT Appointment [facility] [address] [place] [phone] 01/08/2025 9:00 AM CDT Office Visit [facility] - GI [address] [facility], [place] [phone] Amos Pabon MD [address] [place] [address] [place] [address] documented as of this encounter Goals Goal [...] on filedocumented in this encounter Care Teams Rubber Compounder Relationship Specialty Start Date End Date Major Kraft MD PCP - General 07/01/21 06/08/22 Eric Oconnell MD Hospitalist 10/10/21 documented as of this encounter
--- OUTSIDE RECORDS SUMMARY | 2024-11-05 08:50 | XMS_ITS | Encounter Summary ---
Author Organization [facility] Address [address] [place] [address] Care Team Providers Care Critical Care Transport Nurse Name Role Phone Eric Oconnell MD Unavailable [phone] Raya Carty PA-C Primary Care Provider Reason for Visit * Auth/Cert Specialty Diagnoses / Procedures Referred By Rod young Referred To Contact Diagnoses Chronic gastric ulcer without hemorrhage and without perforation Procedures CO ED EGD FLEX TRANSORAL DX CO EGD FLEX TRANSORAL W BX SNGL OR MULT ESOPHAGOGASTRODUODENOSCOPY (EGD) DIAGNOSTIC Referral ID Status Reason Start Date Expiration Date Visits Re quested Visits Authorized [id number] 1 1 Encounter Details Date Type Department Care Team (Latest Contact Info) Description 06/18/2022 8:13 AM CDT - 06/18/2022 10:51 AM CDT Hospital Encounter [facility] OP [address] [place] [address] Amos Pabon MD 1225 [facility] 2L [place] [address] Gastroenterology Discharge Disposition: Other Facility Not Defined [...] ask them during your visits. ?? Copyright [employer] 2020 Information is for End User's use only and may not be sold, redistributed or otherwise used for commercial purposes. All illustrations and images included in CareNotes?? are the copyrighted property of [email or web address] or [employer] The above information is an teachers' aide only. It is not intended as [...] is noted. Dictated by Stanley Joyce MD (resident services director). I, Dr. ALO HEMPHILL MD, FRCR havepersonally reviewed and interpreted this examination/study. This report was electronically signed by AOL HEMPHILL MD, FRCR on 12/18/2021 10:34 AM . US ABDOMEN LIMITED Result Date: 10/21/2021 IMPRESSION: 1.Hepatic cirrhosis with sequela of portal hypertension (recanalization of the umbilical vein) without discrete hepatic lesion. 2.Splenomegaly. 3.No evidence of cholelithiasis or acute cholecystitis. Dictated by Lawrence Meyers D.O. (Direct Service Worker) Dr. CLIFFORD Anton M.D. have pers onally [...] examination/study. This report was electronically signed by AJNAE MCDUFFIE MD on 12/18/2021 8:00 AM . XR PELVIS W LEFT HIP 2VW Result Date: 12/18/2021 IMPRESSION: Superolaterally displaced fracture of the left femoral neck. Report dictated by Shama Landry M.D. (resident services director). IDr. ALO MD, [facility] have personally reviewed and interpreted this examination/study. This report was electronically signed by ALO HEMPHILL MD, [facility] on 12/18/2021 10:05 AM . Physicial [...] Fellow Division of Gastroenterology and Hepatology [facility] documented in this encounter Plan of Treatment Upcoming Encounters Date Type Department Care Team (Late st Contact Info) Description 11/29/2024 8:30 AM GENERAL MANAGER FOOD Office Visit [facility] - Orthopedic Surgery [address] [place] [address] Toño Cabrera MD 1031 [facility] 280 [place] [address] 01/08/2025 8:00 AM CDT Appointment [facility] [address] [place] [address] 01/08/2025 9:00 AM CDT Office Visit [facility] - GI [address] [facility], [place] [phone] Amos Pabon MD [address] [place] [address] [place] [address] documented as of this encounter Goals Goal [...] Procedure Name Priority Date/Time Associated Diagnosis Comments CO ED EGD FLEX TRANSORAL DX 06/18/2022 9:18 [...] Procedure Code(s): ? --- Professional --- ? 53221, Esophagogastroduode noscopy, flexible, transoral; diagnostic, ? including collection of specimen(s) by brushing or washing, when ? 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 All rights reserved. The codes documented in this report are preliminary and upon executive officer review may be revised to meet current compliance requirements. Amos Pabon, 06/18/2022 9:47:50 AM Note Initiated On: 06/18/2022 9:04 AM Number of Addenda: 0 ? [facility] ? [address] [place], [place] [id number] [place] [address] PROVATION 06/18/2022 9:04 AM CDT Amos Pabon MD GI PROCEDURE ORDERAB [facility] documented in this encounter Visit Diagnoses Diagnosis [...] (GI) documented in this encounter Care Teams Critical Care Transport Nurse Relationship Specialty Start Date End Date Raya Carty PA-C [address] [place] [phone] PCP - General 06/09/22 07/05/22 Eric Oconnell MD Hospitalist 10/10/21 documented as of this encounter
--- OUTSIDE RECORDS SUMMARY | 2024-11-05 08:50 | XMS_ITS | Encounter Summary ---
Author Organization [facility] Address [address] [facility] [place] [address] Care Team Providers Care Product Controller Name Role Phone Eric Oconnell MD Unavailable [phone] Gregorio James MD Primary Care Provider [phone] Reason for Visit * Reason Comments Pain Knee Encounter Details Date Type Department Care Team (Latest Contact Info) Description 08/11/2022 9:00 AM CDT Office Visit [facility] [address] [place] [address] Toño Cabrera MD [address] [address] Post-traumatic osteoarthritis of left hip (Primary Dx); [...] Hickey MD - 08/11/2022 9:39 AM CDT [facility] Orthopedic Adult Reconstruction Surgery Clinic Note Lukas Diaz, 36 year old, male : 1985 CSN: [id number] Primary Care Physician: Gregorio James MD Diagnosis/Procedures [...] a poor historian. [facility] and wasfound to have a [...] improving but he does see hepatology at [facility]. He states he can not do his activities of daily living including walking or standing for any prolonged period of time due to the left hip pain. He isin a fdc at this point. Current Outpatient Medications on [...] CDTAssociated Order(s): PROC INJECTION JOINT (SMALL/INTERMED/MAJOR) Procedure(s): IL DRAIN/INJECT LARGE JOINT/BURSA Pre-Procedure Diagnose(s): Left knee [...] procedure. Toño Cabrera MD 08/11/2022 10:08 AM LOPMENT ADMINISTRATOR documented in this encounter Plan of Treatment Upcoming Encounters Date Type Department Care Team (Late st Contact Info) Description 11/29/2024 8:30 AM DEVELOPMENT ADMINISTRATOR Office Visit [facility] - Orthopedic Surgery [address] [facility] [address] Toño Cabrera MD 1031 [facility] 280 [place] [address] 01/08/2025 8:00 AM CDT Appointment [facility] [address] [place] [phone] 01/08/2025 9:00 AM CDT Office Visit [facility] - GI [address] [facility], [place] [phone] Amos Pabon MD [facility] [place] [address] documented as of this encounter Goals Goal [...] Procedure Name Priority Date/Time Associated Diagnosis Comments IL DRAIN/INJECT LARGE JOINT/BURSA Routine 08/11/2022 10:08 AM CDT Left knee pain, unspecified chronicity Primary osteoarthritis of left knee documented in this encounter Results * IL DRAIN/INJECT LARGE JOINT/BURSA (08/11/2022 10:08 AM CDT) [...] Closed fracture of left hip, initial encounter ([facility]) Left knee pain, unspecified chronicity Primary osteoarthritis [...] Knee documented in this encounter Care Teams Product Controller Relationship Specialty Start Date End Date Gregorio James MD [address] [place] [phone] PCP - General 08/11/22 05/16/24 Eric Oconnell MD Hospitalist 10/10/21 documented as of this encounter
--- OUTSIDE RECORDS SUMMARY | 2024-11-05 08:50 | XMS_ITS | Encounter Summary ---
Author Organization [facility] Address [address] [facility] [place] [address] Care Team Providers Care Interactive Media Project Manager Name Role Phone Major Kraft MD Primary Care Provider [phone] Eric Oconnell MD Unavailable + [phone] Encounter Details Date Type Department Care Team (Late st Contact Info) Description 03/06/2022 Orders Only [facility] - GI [address] [place] [address], [place] [phone] Amos Pabon MD [address] [place] [address] OF GASTROENTEROLOGY [place], [place] [phone] Chronic gastric ulcer without hemorrhage and without [...] st Contact Info) Description 11/29/2024 8:30 AM SPEECH AND HEARING CLINIC DIRECTOR Office Visit [facility] - Orthopedic Surgery [address] [place] [address] Toño Cabrera MD 1031 [facility] 280 [place] [address] 01/08/2025 8:00 AM CDT Appointment [facility] [address] [place] [phone] 01/08/2025 9:00 AM CDT Office Visit [facility] - GI [address] [facility], [place] [address] Amos Pabon MD [address] [place] [address] [place] [address] documented as of this encounter Goals Goal [...] Primary documented in this encounter Care Teams Interactive Media Project Manager Relationship Specialty Start Date End Date Major Kraft MD PCP - General 07/01/21 06/08/22 Eric Oconnell MD Hospitalist 10/10/21 documented as of this encounter
--- OUTSIDE RECORDS SUMMARY | 2024-11-05 08:50 | XMS_ITS | Encounter Summary ---
Author Organization [facility] Address [address] [facility] [place] [address] Care Team Providers Care Emissions Testing And Repair Technician Name Role Phone Eric Oconnell MD Unavailable + [phone] Major Kraft MD Primary Care Provider + [phone] Encounter Details Date Type Department Care Team (Late st Contact Info) Description 08/10/2022 Orders Only [facility] [address] [facility] [place] [address] Toño Cabrera MD 1031 [facility] 280 [place], [place] [phone] Left knee pain, unspecified chronicity Social History [...] st Contact Info) Description 11/29/2024 8:30 AM DIESEL MECHANIC CONSTRUCTION [facility] Visit [facility] [address] [place] [address] Toño Cabrera MD [address] [address] 01/08/2025 8:[address] [facility] 12[address] [place] [phone] 01/08/2025 9:00 AM CDT Office Visit [facility] - GI 1225 [facility], [place] [address] Amos Pabon MD [address] [place] [address] [place] [address] documented as of this encounter Goals Goal [...] DATE/TIME OF EXAM: ??08/11/2022 9:22 AM, LOCATION ??[facility] [place] INDICATION: M25.562: Pain in left knee [...] MORE, DATE/TIME OF EXAM: 29:22 AM, LOCATION [facility] [place] INDICATION: M25.562: Pain in left knee [...] chronicity documented in this encounter Care Teams Emissions Testing And Repair Technician Relationship Specialty Start Date End Date Major Kraft MD PCP - General 07/06/22 08/10/22 Eric Oconnell MD Hospitalist 10/10/21 documented as of this encounter
--- OUTSIDE RECORDS SUMMARY | 2024-11-05 08:50 | XMS_ITS | Encounter Summary ---
Author Organization [facility] Address [address] [place] [address] Care Team Providers Care Delivery Supervisor Name Role Phone Eric Oconnell MD Unavailable [phone] Raya Carty PA-C Primary Care Provider Reason for Visit * Auth/Cert Specialty Diagnoses / Procedures Referred By Rod t Referred To Contact Diagnoses Chronic gastric ulcer without hemorrhage and without perforation Procedures WY ED EGD FLEX TRANSORAL DX [place] EGD FLEX TRANSORAL W BX SNGL OR MULT ESOPHAGOGASTRODUODENOSCOPY (EGD) DIAGNOSTIC Referral ID Status Reason Start Date Expiration Date Visits Re quested Visits Authorized [id number] 1 1 Encounter Details Date Type Department Care Team (Late st Contact Info) Description 06/18/2022 9:00 AM CDT - 06/18/2022 9:30 AM CDT Surgery [facility] ENDOSCOPY [address] [place] [address] Amos Pabon MD [facility] [place] [address] EGD Surgery Details Date/Time Status Location OR Service Patient Class Case Class Case Type Trauma Case? 06/18/2022 9:00 AM Posted [facility] Endoscopy ENDO 4 Gastroenterology Surgery Day [...] ask them during your visits. ?? Copyright [employer] 2020 Information is for End User's use only and may not be sold, redistributed or otherwise used for commercial purposes. All illustrations and images included in CareNotes?? are the copyrighted property of [employer] or [employer] The above information is an barmaid only. It is not intended as medical [...] Dictated by Stanley Joyce MD (vice president sales and marketing). I, Dr. ABDYOSEF HEMPHILL MD, FRCR havepersonally reviewed and interpreted this examination/study. This report was electronically signed by ALO HEMPHILL MD, FRCR on 12/18/2021 10:34 AM . US ABDOMEN LIMITED Result Date: 10/21/2021 IMPRESSION: 1.Hepatic cirrhosis with sequela of portal hypertension (recanalization of the umbilical vein) without discrete hepatic lesion. 2.Splenomegaly. 3.No evidence of cholelithiasis or acute cholecystitis. Dictated by Lawrence Meyers D.O. (Baking Factory Worker) Dr. CLIFFORD Anton M.D. have pers [...] dictated by Shama Landry M.D. (vice president sales and marketing). Dr. ALO Anton MD, FRCR have personally [...] Other: post EVL Procedure Planned: EGD Amos Pabno MD * Devante James MD - 06/18/2022 [...] Hepatology Fellow Division of Gastroenterology and Hepatology [facility] documented in this encounter Plan of Treatment Upcoming Encounters Date Type Department Care Team (Late st Contact Info) Description 11/29/2024 8:30 AM CUBE MACHINE TENDER Office Visit [facility] - Orthopedic Surgery [address] [facility] [place] [place] [phone] Toño Cabrera MD 1031 [facility] 280 [place] [address] 01/08/2025 8:00 AM CDT Appointment [address] [phone] 01/08/2025 9:00 AM CDT Office Visit [facility] - GI [address] [facility], [place] [phone] Amos Pabon MD [address] [place] [address] [place] [address] documented as of this encounter Goals Goal [...] Procedure Name Priority Date/Time Associated Diagnosis Comments [place] ED EGD FLEX TRANSORAL DX 06/18/2022 9:18 [...] Procedure Code(s): ? --- Professional --- ? 86220, Esophagogastroduode noscopy, flexible, transoral; diagnostic, ? including collection of specimen(s) by brushing or washing, when ? 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 All rights reserved. The codes documented in this report are preliminary and upon tire debeader review may be revised to meet current compliance requirements. Amos Pabon, 06/18/2022 9:47:50 AM Note Initiated On: 06/18/2022 9:04 AM Number of Addenda: 0 ? [facility] ? [address] [place], [place] [phone] [place] [address] PROVATION 06/18/2022 9:04 AM CDT Amos Pabon MD GI PROCEDURE ORDERAB [facility] documented in this encounter Visit Diagnoses [...] (GI) documented in this encounter Care Teams Delivery Supervisor Relationship Specialty Start Date End Date Raya Carty PA-C [address] [place] [phone] PCP - General 06/09/22 07/05/22 Eric Oconnell MD Hospitalist 10/10/21 documented as of this encounter
--- OUTSIDE RECORDS SUMMARY | 2024-11-05 08:50 | XMS_ITS | Encounter Summary ---
Author Organization [facility] Address [address] [facility] [place] [address] Care Team Providers Care Rv Servicer Name Role Phone Major Kraft MD Primary Care Provider + [phone] Eric Oconnell MD Unavailable + [phone] Reason for Visit * Reason Onset Date Comments Post Op Call 03/06/2022 Encounter Details Date Type Department Care Team (Late st Contact Info) Description 03/06/2022 Telephone [facility] ENDOSCOPY [address] [place] [address] Heidi Layton, ALFREDO Post Op [...] st Contact Info) Description 11/29/2024 8:30 AM THREE DIMENSIONAL ART INSTRUCTOR Office Visit [facility] - Orthopedic Surgery 10[address] [facility] [place] [address] Toño Cabrera MD 1031 [facility] 280 [place] [address] 01/08/2025 8:00 AM CDT Appointment [facility] [address] [place] [address] 01/08/2025 9:00 AM CDT Office Visit [facility] - GI 1225 [facility], [place] [phone] Amos Pabon MD [address] [place] [address] [place] [address] documented as of this encounter Goals Goal [...] on filedocumented in this encounter Care Teams Rv Servicer Relationship Specialty Start Date End Date Major Kraft MD PCP - General 07/01/21 06/08/22 Eric Oconnell MD Hospitalist 10/10/21 documented as of this encounter
--- OUTSIDE RECORDS SUMMARY | 2024-11-05 08:50 | XMS_ITS | Encounter Summary ---
Author Organization [facility] Address [address] [place] [address] Care Team Providers Care Chef Assistant Name Role Phone Major Kraft MD Primary Care Provider [phone] Eric Oconnell MD Unavailable + [phone] Reason for Visit * Auth/Cert Specialty Diagnoses / Procedures Referred By Rod t Referred To Contact Diagnoses Other cirrhosis of liver (HCC) Other cirrhosis of liver [K74.69] Procedures ME ED EGD FLEX TRANSORAL DX ME EGD FLEX TRANSORAL W BX SNGL OR MULT ESOPHAGOGASTRODUODENOSCOPY (EGD) DIAGNOSTIC Referral ID Status Reason Start Date Expiration Date Visits Re quested Visits Authorized [id number] 1 1 Encounter Details Date Type Department Care Team (Late st Contact Info) Description 03/05/2022 9:34 AM CDT - 03/05/2022 10:04 AM T Surgery [facility] ENDOSCOPY [address] [place] [phone] Amos Pabon MD [facility]5 [facility] 2L [place] [address] EGD Surgery Details Date/Time Status Location OR Service Patient Class Case Class Case Type Trauma Case? 03/05/2022 9:34 AM Posted [facility] Endoscopy ENDO 2 Gastroenterology Surgery Day Care Panel 1 Procedure LRB Anes Op Region Wound Class Comments EGD N/A MAC Abdomen NA esophagitis, antral ulcers, Holt's A. gastric bx R/O H pylori Surgeon Surgeon Role Service Panel Amos Pabon MD Primary Gastroenterology 1 [facility] documented in this encounter Social History Tobacco [...] ask them during your visits. ?? Copyright [employer] 2020 Information is for End User's use only and may not be sold, redistributed or otherwise used for commercial purposes. All illustrations and images included in CareNotes?? are the copyrighted property of [employer].A[employer]. or [employer] The above information is an counseling aide only. It is not intended as [...] 02/19/2023 vitamin D, ergocalciferol, (DRISDOL) 1.25 MG (12033 UT) capsule Take 1 (one) capsule by [...] ??? vitamin D, ergocalciferol, (DRISDOL) 1.25 MG (53619 UT) capsule Take 1 (one) capsule by [...] acute cholecystitis. Dictated by Lawrence Meyers D.O. (Rodeo Clown) I, Dr. CLIFFORD COTA M.D. have pers [...] st Contact Info) Description 11/29/2024 8:30 AM PAINTER HELPER SPRAY Office Visit [facility] - Orthopedic Surgery [address] [place] [address] Toño Cabrera MD [address] [facility] [address] [place] [address] 01/08/2025 8:00 AM CDT Appointment [facility] [address] [place] [address] 01/08/2025 9:00 AM CDT Office Visit [facility] - GI [address] [facility], [place] [address] Amos Pabon MD [address] [place] [address] [place] [address] documented as of this encounter Goals Goal [...] AM CDT Other cirrhosis of liver (HCC) ME ED EGD FLEX TRANSORAL DX 03/05/2022 9:43 AM CDT Other cirrhosis of liver (HCC) [facility]eds at [facility] EGD Routine 03/05/2022 9:23 AM CDT documented in this encounter Results * PATHOLOGY TISSUE (03/05/2022 9:47 AM CDT) Case Report Surgical Pathology Report ? Case: [id number] ? Authorizing Provider: ??Amos Pabon MD ?Collected: [...] the final diagnosis. 03/06/2022 12:19 PM T [facility] PATHOLOGY LAB Clinical History The patient is a 36-year-old man here for 2nd degree variceal eradication. Operative procedure/findings: EGD - few non-bleeding superficial gastric ulcers in antrum, biopsied. 03/06/2022 12:19 PM T [facility] PATHOLOGY LAB Gross Description The requisition and specimen(s) are identified with the patient's name Lukas Diaz. Received in formalin, specimen A , are 4 pink-briscoe tissues, 0.1-0.7 cm in greatest dimension and 1.3 x 0.2 x 0.2 cm in aggregate, submitted in toto in cassette A1. DF 03/06/2022 12:19 PM [facility] PATHOLOGY LAB Disclaimer The performance characteristics of all immunohistochemical and indirect immunofluorescence stains (if any) cited in this report were determined by the Histopathology Laboratory of [facility]. Some of these tests were developed by [...] attending (teaching) pathologist. 03/06/2022 12:19 PM T [facility] PATHOLOGY LAB Embedded Images 03/06/2022 12:19 PM [facility] PATHOLOGY LAB Biopsy, NOS GASTRIC CONTENTS SPECIMEN / Unknown 03/05/2022 9:47 AM CDT 03/05/2022 11:35 AM CDT Comment:Pre-op diagnosis: Other cirrhosis of liver [K74.69] Amos Pabon MD LAB - PATHOLOGY/CYTO LOGY ORDERABLES [facility] PATHOLOGY LAB [address] [phone] * EGD (03/05/2022 9:23 AM CDT) Report [...] Procedure Code(s): ? --- Professional --- ? 66390, Esophagogastroduode noscopy, flexible, transoral; with biopsy, ? single or multiple Diagnosis Code(s): ?--- Professional --- ?K21.0, Gastro-esophageal reflux disease with ?esophagitis ?K22.8, Other specified diseases of esophagus ?K25.9, Gastric ulcer, unspecified as acute or ?chronic, without hemorrhage or perforation ?I85.00, Esophageal varices without bleeding CPT copyright 2019 [employer]. All rights reserved. The codes documented in this report are preliminary and upon yarn dry room worker review may be revised to meet current compliance requirements. Amos Pabon, 03/05/2022 9:59:19 AM Note Initiated On: 03/05/2022 9:23 AM Number of Addenda: 0 ? [facility] ? [address] [place], [place] [id number] [place] [address] PROVATION 03/05/2022 9:23 AM CDT Amos Pabon MD GI PROCEDURE ORDERAB LES [facility] PROVATION documented in this encounter Visit [...] (GI) documented in this encounter Care Teams Chef Assistant Relationship Specialty Start Date End Date Major Kraft MD PCP - General 07/01/21 06/08/22 Eric Oconnell MD Hospitalist 10/10/21 documented as of this encounter
--- OUTSIDE RECORDS SUMMARY | 2024-11-05 08:50 | XMS_ITS | Encounter Summary ---
Author Organization [facility] Address [address] [facility] [place] [address] Care Team Providers Care Staff Research Associate Name Role Phone Major Kraft MD Primary Care Provider [phone] Eric Oconnell MD Unavailable + [phone] Raya Carty PA-C Primary Care Provider Major Kraft MD Primary Care Provider + [phone] Gregorio James MD Primary Care Provider [phone] Teodoro Lopez Primary Care Provider Unavailabl e Reason for Visit * Reason Onset Date Comments Pre-op Instructions 02/26/2022 Encounter Details Date Type Department Care Team (Late st Contact Info) Description 02/26/2022 Patient Outreach [facility] ENDOSCOPY [address] [place] [phone] Ginger Amador RN Pre-op Instructions Social History [...] st Contact Info) Description 11/29/2024 8:30 AM ADOBE FLEX DEVELOPER Office Visit [facility] - Orthopedic Surgery [address] [facility] [place] [address] Toño Cabrera MD 1031 [facility] [address] [place] [address] 01/08/2025 8:00 AM CDT Appointment [facility] [address] [place] [address] 01/08/2025 9:00 AM CDT Office Visit [facility] - GI [address] [place] [address], [place] [address] Amos Pabon MD [address] [place] [address] [place] [address] documented as of this encounter Goals Goal [...] on filedocumented in this encounter Care Teams Staff Research Associate Relationship Specialty Start Date End Date Majro Kraft MD PCP - General 07/01/21 06/08/22 Raya Carty PA-C [address] [place] [phone] PCP - General 06/09/22 07/05/22 Major Kraft MD PCP - General 07/06/22 08/10/22 Gregorio James MD [address] [place] [phone] PCP - General 08/11/22 05/16/24 Teodoro Lopez PCP - General 05/17/24 Eric Oconnell MD Hospitalist 10/10/21 documented as of this encounter
--- OUTSIDE RECORDS SUMMARY | 2024-11-05 08:50 | XMS_ITS | Encounter Summary ---
Author Organization [facility] Address [address] [place] [address] Care Team Providers Care Operator Catalyst Concentration Name Role Phone Major Kraft MD Primary Care Provider [phone] Eric Oconnell MD Unavailable + [phone] Reason for Visit * Reason Onset Date Comments Concerns 02/27/2022 Encounter Details Date Type Department Care Team (Late st Contact Info) Description 02/27/2022 Telephone [facility] - Nephrology [address] [facility], [place] [address] Ellyn Payne RN Concerns Social History Tobacco [...] facility he's at not to change. Call #[phone], speak with 5 nurses station. documented in this encounter Plan of Treatment Upcoming Encounters Date Type Department Care Team (Late st Contact Info) Description 11/29/2024 8:30 AM CHIEF TECHNICIAN Office Visit [facility] - Orthopedic Surgery [address] [facility] [place] [address] Toño Cabrera MD 1031 [facility] 280 [place] [address] 01/08/2025 8:00 AM CDT Appointment [facility] [address] [place] [phone] 01/08/2025 9:00 AM CDT Office Visit [facility] - GI [address] [place] [address], [place] [phone] Amos Pabon MD [address] [place] [address] [place] [address] documented as of this encounter Goals Goal [...] on filedocumented in this encounter Care Teams Operator Catalyst Concentration Relationship Specialty Start Date End Date Major Kraft MD PCP - General 07/01/21 06/08/22 Eric Oconnell MD Hospitalist 10/10/21 documented as of this encounter
--- OUTSIDE RECORDS SUMMARY | 2024-11-05 08:50 | XMS_ITS | Encounter Summary ---
Author Organization [facility] Address [address] [facility] [place] [address] Care Team Providers Care Brass Finisher Name Role Phone Eric Oconnell MD Unavailable [phone] Gregorio James MD Primary Care Provider [phone] Encounter Details Date Type Department Care Team [...] st Contact Info) Description 11/29/2024 8:30 AM RESIDENT PROGRAM SPECIALIST Office Visit [facility] - Orthopedic Surgery [address] [place] [address] Toño Cabrera MD [address] [address] 01/08/2025 8:00 AM CDT Appointment [facility] [address] [place] [phone] 01/08/2025 9:00 AM CDT Office Visit [facility] - GI [address] [facility], [place] [address] Amos Pabon MD [address] [place] [address] [place] [address] documented as of this encounter Goals Goal [...] on filedocumented in this encounter Care Teams Brass Finisher Relationship Specialty Start Date End Date Gregorio James MD [address] [address] PCP - General 08/11/22 05/16/24 Eric Oconnell MD Hospitalist 10/10/21 documented as of this encounter
--- OUTSIDE RECORDS SUMMARY | 2024-11-05 08:50 | XMS_ITS | Encounter Summary ---
Author Organization [facility] Address [address] [facility] [place] [address] Care Team Providers Care Wool Grader Name Role Phone Major Kraft MD Primary Care Provider [phone] Eric Oconnell MD Unavailable + [phone] Reason for Visit * Auth/Cert Specialty Diagnoses / Procedures Referred By Contmegan t Referred To Contact Diagnoses Other cirrhosis of liver (HCC) Other cirrhosis of liver [K74.69] Procedures ND ED EGD FLEX TRANSORAL DX ND EGD FLEX TRANSORAL W BX SNGL OR MULT ESOPHAGOGASTRODUODENOSCOPY (EGD) DIAGNOSTIC Referral ID Status Reason Start Date Expiration Date Visits Re quested Visits Authorized [id number] 1 1 Encounter Details Date Type Department Care Team (Late st Contact Info) Description 03/05/2022 9:37 AM CDT Anesthesia Event [facility] END[facility] [address] [place] [phone] David Holt II, MD [facility] [place] [address] Anesthesia Record Procedure Summary Procedure Name Responsible [...] ALFREDO Knight; Tolerance: Well 03/05/22 09 by Leial Land RN 03/05/22 104 by Cherie Whitlock [...] Anesthesia Transfer of Care - Yasmine Arita APRN-ADMINISTRATIVE FELLOW - 03/05/2022 9:57 AM CDT ANESTHESIA TRANSFER [...] st Contact Info) Description 11/29/2024 8:30 AM RADIO OPERATOR Office Visit [facility] - Orthopedic Surgery [address] [facility] [place] [address] Toño Cabrera MD 10[address] [facility] 280 [place] [address] 01/08/2025 8:00 AM CDT Appointment [facility] [address] [place] [address] 01/08/2025 9:00 AM CDT Office Visit [facility] - GI [address] [facility], [place] [address] Amos Pabon MD [address] [place] [address] [place] [address] documented as of this encounter Goals Goal [...] mg documented in this encounter Care Teams Wool Grader Relationship Specialty Start Date End Date Major Kraft MD PCP - General 07/01/21 06/08/22 Eric Oconnell MD Hospitalist 10/10/21 documented as of this encounter
--- OUTSIDE RECORDS SUMMARY | 2024-11-05 08:51 | XMS_ITS | Encounter Summary ---
Author Organization [facility] Address [address] [facility] [address] Care Team Providers Care Highway Maintainer Name Role Phone Major Kraft MD Primary Care Provider [phone] Eric Oconnell MD Unavailable + [phone] Reason for Referral * Radiology Services (Routine) - Closed Specialty Diagnoses / Procedures Referred By Contac t Referred To Contact Diagnoses Cirrhosis of liver with ascites, unspecified hepatic cirrhosis type (HCC) Procedures US ABDOMEN LIMITED Amos Pabon MD [address] [place] [address] [facility] [address] [place] [address] Referral ID Status Reason Start Date Expiration Date Visits Re quested Visits Authorized [id number] Closed 10/01/2021 10/01/2022 1 1 NG INSTRUCTOR Reason for Visit * Radiology Services (Routine) - Closed Specialty Diagnoses / Procedures Referred By Contac t Referred To Contact Diagnoses Cirrhosis of liver with ascites, unspecified hepatic cirrhosis type (HCC) Procedures US ABDOMEN LIMITED Amos Pabon MD [address] DIV [facility] [place] [address] [facility] [address] [place] [address] Referral ID Status Reason Start Date Expiration Date Visits Re quested Visits Authorized [id number] Closed 10/01/2021 10/01/2022 1 1 Encounter Details Date Type Department Care Team (Latest Contact Info) Description 10/21/2021 9:46 AM RIDING INSTRUCTOR - 10/21/2021 11:59 PM RIDING INSTRUCTOR Hospital Encounter [facility] [address] [place] [address] Amos Pabon MD [address] [place] [address] Discharge Disposition: Home or Self Care Social [...] COVID-19? No / Unsure 10/21/2021 9:44 AM RIDING INSTRUCTOR documented as of this encounter Medications at [...] lesions. Will continue to follow for now. NG INSTRUCTOR documented in this encounter Plan of Treatment Upcoming Encounters Date Type Department Care Team (Late st Contact Info) Description 11/29/2024 8:30 AM RIDING INSTRUCTOR Office Visit [facility] - Orthopedic Surgery [address] [facility] [place] [address] Toño Cabrera MD 1031 [facility] 280 [place] [address] 01/08/2025 8:[address] [facility] [address] [place] [address] 01/08/2025 9:00 AM CDT Office Visit [facility] - GI [address] [facility], [place] [address] Amos Pabon MD [address] [facility] 2L [place] [address] documented as of this encounter Goals Goal [...] ABDOMEN LIMITED Routine 10/21/2021 10 :20 AM RIDING INSTRUCTOR Cirrhosis of liver with ascites, unspecified hepatic cirrhosis type (HCC) documented in this encounter Results * US ABDOMEN LIMITED (10/21/2021 10:20 AM RIDING INSTRUCTOR) Anatomical Region Laterality Modality Abdomen Ultrasound 10/21/2021 10:4 4 AM RIDING INSTRUCTOR Impressions 10/21/2021 11:38 AM RIDING INSTRUCTOR IMPRESSION: 1.Hepatic cirrhosis with sequela of portal hypertension (recanalization of the umbilical vein) without discrete hepatic lesion. 2.Splenomegaly. 3.No evidence of cholelithiasis or acute cholecystitis. Dictated by Lawrence Meyers D.O. (Professor Of Mathematics) I, Dr. BINA PEREZ M.D. have personally reviewed and interpreted this examination/study. This report was electronically signed by BINA PEREZ M.D. ??on 10/21/2021 11:38 AM . Narrative 10/21/2021 11:38 AM RIDING INSTRUCTOR EXAMINATION: Limited abdominal sonogram HISTORY: K74.60: Cirrhosis [...] acute cholecystitis. Dictated by Lawrence Meyers D.O. (Professor Of Mathematics) I, Dr. BINA PEREZ M.D. have personally reviewed and interpreted this examination/study. This report was electronically signed by BINA PEREZ M.D. on10/21/2021 11:38 AM . Amos Pabon MD ORDERABLES documented in this encounter Visit Diagnoses Diagnosis Cirrhosis of liver with ascites, unspecified hepatic cirrhosis type (HCC) documented in this encounter Care Teams Highway Maintainer Relationship Specialty Start Date End Date Major Kraft MD PCP - General 07/01/21 06/08/22 Eric Oconnell MD Hospitalist 10/10/21 documented as of this encounter
--- OUTSIDE RECORDS SUMMARY | 2024-11-05 08:51 | XMS_ITS | Encounter Summary ---
Author Organization [facility] Address [address] [facility] [place] [address] Care Team Providers Care Online Marketing Manager Name Role Phone Major Kraft MD Primary Care Provider + [phone] Eric Oconnell MD Unavailable + [phone] Reason for Visit * Reason Comments Concerns Encounter Details Date Type Department Care Team (Late st Contact Info) Description 11/25/2021 Telephone [facility] - Nephrology [address] [place] [address] [place] [address] Taina Ashley RN Concerns Social [...] PM CST Called patient to follow up electronic console display operator from last week. He states he is doing better now. He increased his lactulose and has seen improvement. Also clarified that his disability paperwork has not been received and if he can make sure it was faxed to our office or bring it with him to his appointment wecan review it. He states understanding. ICES REP * Telephone Encounter - Taina Ashley RN - 11/25/2021 4:12 PM CST Pt called and wants to know if he can have an earlier appt because he says his condition is worsening. Also wants to speak with the social work faculty member about his pending Social Security disability paperwork. ICES REP documented in this encounter Plan of Treatment Upcoming Encounters Date Type Department Care Team (Late st Contact Info) Description 11/29/2024 8:30 AM SERVICES REP Office Visit [facility] - Orthopedic Surgery [address] [facility] [place] [address] Toño Cabrera MD [address] [facility] [address] [place] [address] 01/08/2025 8:00 AM CDT Appointment [facility] [address] [place] [address] 01/08/2025 9:00 AM CDT Office Visit [facility] - GI [address] [facility], [place] [phone] Amos Pabon MD [address] [place] [address] [place] [address] documented as of this encounter Goals Goal [...] on filedocumented in this encounter Care Teams Online Marketing Manager Relationship Specialty Start Date End Date Major Kraft MD PCP - General 07/01/21 06/08/22 Eric Oconnell MD Hospitalist 10/10/21 documented as of this encounter
--- OUTSIDE RECORDS SUMMARY | 2024-11-05 08:51 | XMS_ITS | Encounter Summary ---
Author Organization [facility] Address [address] [place] [address] Care Team Providers Care Editing Internship Name Role Phone Major Kraft MD Primary Care Provider Eric Oconnell MD Unavailable + [phone] Reason for Visit * Reason Comments Cirrhosis Encounter Details Date Type Department Care Team (Late st Contact Info) Description 02/16/2022 1:00 PM CDT Office Visit [facility] - GI [address] [facility] [place] [phone] Major Kraft MD [address] [place] [id number] Amos Pabon MD [address] [place] [address] [place] [address] Cirrhosis of liver with ascites, unspecified hepatic [...] ??? vitamin D, ergocalciferol, (DRISDOL) 1.25 MG (16102 UT) capsule Take 1 (one) capsule by [...] is noted. Dictated by Stanley Joyce MD (oral and maxillofacial surgery resident). I, Dr. ALO HEMPHILL MD, [facility] havepersonally reviewed and interpreted this examination/study. This report was electronically signed by ALO HEMPHILL MD, [facility] on 12/18/2021 10:34 AM . US ABDOMEN LIMITED Result Date: 10/21/2021 IMPRESSION: 1.Hepatic cirrhosis with sequela of portal hypertension (recanalization of the umbilical vein) without discrete hepatic lesion. 2.Splenomegaly. 3.No evidence of cholelithiasis or acute cholecystitis. Dictated by Lawrence Meyers D.O. (Template Layout Worker) IDr. CLIFFORD M.D. have pers onally reviewed [...] neck. Report dictated by Shama Landry M.D. (oral and maxillofacial surgery resident). Dr. ALO Atnon MD, [facility] have personally reviewed and interpreted this examination/study. This report was electronically signed by ALO HEMPHILL MD, [facility] on 12/18/2021 10:05 AM . EGD: 09/2021 Esophageal varices s/p band ligation I personally reviewed the old records obtained from other facilities/departments and summarized thedata in this note. Amos Pabon MD carbon paper coating machine setter Gastroenterology and Hepatology Abdominal Organ Transplant [facility] February 16, 2022 Coding Rationale New or est? Established Patient Highest problem complexity: 2 or more stable chronic illnesses Data review: Review of prior external note(s): 1 unique source(s) Review of result(s): 2 unique source(s) Ordering of test(s): 3 or more unique test(s) ordered Discussion of management or test interpretation Highest level of risk: Moderate Suggested code: 45624 documented in this encounter Plan of Treatment Upcoming Encounters Date Type Department Care Team (Late st Contact Info) Description 11/29/2024 8:30 AM LINOLEUM INSTALLER Office Visit [facility] - Orthopedic Surgery [address] [facility] [address] [place] [address] Toño Cabrera MD [address] [facility] [address] [place] [address] 01/08/2025 8:00 AM CDT Appointment [facility] [address] [place] [address] 01/08/2025 9:00 AM CDT Office Visit [facility] - GI [address] [facility] [place] [phone] Amos Pabon MD [address] [place] [address] [place] [address] Scheduled Orders Name Type Priority Associated Diagnoses [...] HEPATIC FUNCTION PANEL (02/16/2022 2:26 PM CDT) [facility] Protein Total 8.9(H) 6.0 - 8.3 g/dL 022 3:[address] [facility] Albumin 4.0 3.4 - 5.0 g/dL 02/16/2022 3:[address] [facility] Bilirubin Total 0.5 0.2 - 1.2 mg/dL 01/24 3:[address] [facility] Bilirubin Conjugated 0.3 0.1 - 0.5 mg/dL 02/16/2022 3:50 PM CDT [facility] Bilirubin Unconjugated 0.2 Unconjugated Bilirubin is a calculated value: Reference ranges have not been established. mg/dL 02/16/2022 3:50 PM CDT [facility] Alkaline Phosphatase 130 40 - 150 U/L 02/16/2022 3:50 PM CDT [facility] ALT 20 5 - 55 U/L 02/16/2022 3:50 PM CDT [facility] AST 24 5 - 34 U/L 02/16/2022 3:[address] [facility] Albumin/Globulin Ratio 0.8(L) 1.1 - 2.3 02/16/2022 3:50 PM CDT [facility] Blood BLOOD SPECIMEN / Unknown Lab Venipuncture / Unknown 02/16/2022 2:26 PM CDT 02/16/2022 3:20 PM CDT Amos Pabon MD LAB - CHEMISTRY KURT ZARAGOZA [facility] Organization Address City/State/ZIP Co de Phone Number [address] [address], [facility] [phone] * (ABNORMAL) BASIC METABOLIC PANEL (CALCIUM TOTAL) (02/16/2022 2:26 PM CDT) [facility] BUN 9 7 - 26 mg/dL 02/16/2022 3:[address] [facility] Creatinine 0.76 0.71 - 1.16 mg/dL 02/16/2022 3:50 PM [facility] Sodium 139 136 - 145 mmol/L 02/16/2022 3:50 PM [facility] Potassium 3.7 3.5 - 4.5 mmol/L 02/16/2022 3:50 PM [facility] Chloride 98 98 - 107 mmol/L 02/16/2022 3:50 PM [facility] CO2 31(H) 22 - 29 mmol/L 02/16/2022 3:50 PM [facility] Glucose 70 70 - 115 mg/dL 02/16/2022 3:50 PM [facility] Calcium 10.4(H) 8.4 - 10.2 mg/dL 02/16/2022 3:50 PM [facility] Anion Gap 14 8 - 18 02/16/2022 3:50 PM [facility] BUN/Creatinine Ratio 12 7 - 23 02/16/2022 3:50 PM [facility] Osmolality Calculated 285 270 - 300 mOsm/kg 02/16/2022 3:50 PM [facility] eGFR by CKD-EPI >90 >=90 mL/min/1.7 3 m2 02/16/2022 3:50 PM [facility] Blood BLOOD SPECIMEN / Unknown Lab Venipuncture / Unknown 02/16/2022 2:26 PM CDT 02/16/2022 3:20 PM CDT Amos Pabon MD LAB - CHEMISTRY ORDSukhjinder ZARAGOZA [facility] Organization Address [facility]/State/ZIP Co de Phone Number [facility] [address] [place] [address], [facility] [phone] * PT-INR [facility] (02/16/2022 2:26 PM CDT) PT 13.5 12.1 - 14.8 Seconds 02/16/2022 3:28 PM [facility] INR 1.0 See Comment 02/16/2022 3:28 PM [facility] Comment:The suggested therap eutic range for standard coumadin (warfarin) therapy is an INR of 2.0-3.0. For high-risk patients (Mechanical Mitral Valve Prosthesis, etc.), the suggested prophylactic therapeutic range is an INR of 2.5-3.5. Blood BLOOD SPECIMEN / Unknown Lab Venipuncture / Unknown 02/16/2022 2:26 PM CDT 02/16/2022 3:12 PM CDT Amos Pabon MD LAB - COAGULATION OR DERABLES [facility] [address] [place] [address], [facility] [phone] * CBC W/O DIFFERENTIAL (02/16/2022 2:26 PM CDT) WBC 9.7 3.5 - 10.5 10? 3 /uL 02/16/2022 3:40 PM [facility] RBC 4.61 4.30 - 5.70 10? 6 /uL 02/16/2022 3:40 PM [facility] Hemoglobin 14.6 12.0 - 17.6 g/dL 02/16/2022 3:40 PM [facility] Hematocrit 43.5 35.2 - 51.7 % 02/16/2022 3:40 PM [facility] MCV 94.4 80.7 - 98.3 fL 02/16/2022 3:40 PM [facility] MCH 31.7 26.7 - 34.0 pg 02/16/2022 3:40 PM [facility] MCHC 33.6 30.8 - 35.9 g/dL 02/16/2022 3:40 PM [facility] Platelet Count 184 150 - 400 10? 3 /uL 02/16/2022 3:40 PM [facility] RDW-SD 49.4 36.0 - 50.0 fL 02/16/2022 3:40 PM [facility] RDW-CV 14.5 11.2 - 14.8 % 02/16/2022 3:40 PM [facility] MPV 11.6 9.4 - 12.9 fL 02/16/2022 3:40 PM CDT [facility] nRBC Absolute 0.00 0 10? 3 /uL 02/16/2022 3:40 PM CDT [facility] nRBC Auto 0.0 0 /100 WBC 02/16/2022 3:40 PM CDT [facility] Blood BLOOD SPECIMEN / Unknown Lab Venipuncture / Unknown 02/16/2022 2:26 PM CDT 02/16/2022 3:19 PM CDT Amos Pabon MD LAB - HEMATOLOGY ORD ERABLES [address] [address], [facility] [phone] * ALPHA FETOPROTEIN BLOOD TUMOR MARKER (02/16/2022 2:26 PM CDT) Alpha-Fetoprote in Tumor Marker 2.9 <=8.3 ng/mL 02/16/2022 4:09 PM CDT [facility] Comment: AFP values will vary depending on testing procedure used. Results are not comparable across different methods. AFP values obtained by [facility] using an Jenkins Alinity Immunoassay. Blood BLOOD SPECIMEN / Unknown Lab Venipuncture / Unknown 02/16/2022 2:26 PM CDT 02/16/2022 3:24 PM CDT Amos Pabon MD LAB - CHEMISTRY ORDE RABVIDA Performing Organization Address City/[facility]/ZIP Co de Phone Number [address] [address], [place] [phone] documented in this encounter Visit Diagnoses Diagnosis Cirrhosis of liver with ascites, unspecified hepatic cirrhosis type (HCC)- Primary Alcoholic cirrhosis of liver without ascites (HCC) Alcoholic cirrhosis of liver Liver failure without hepatic coma, unspecified chronicity (HCC) Depression, unspecified depression type Alcohol use, unspecified with other alcohol-induced disorder (HCC) documented in this encounter Care Teams Editing Internship Relationship Specialty Start Date End Date Major Kraft MD PCP - General 07/01/21 06/08/22 Eric Oconnell MD Hospitalist 10/10/21 documented as of this encounter
--- OUTSIDE RECORDS SUMMARY | 2024-11-05 08:51 | XMS_ITS | Encounter Summary ---
Author Organization [facility] Address [address] [place] [address] Care Team Providers Care Carbide Grinder Name Role Phone Major Kraft MD Primary Care Provider [phone] Eric Oconnell MD Unavailable + [phone] Reason for Visit * Reason Comments Follow-up Encounter Details Date Type Department Care Team (Late st Contact Info) Description 01/07/2022 10:00 AM CDT Office Visit [facility]ician [facility] - Orthopedics [address] [facility] [place] [address] David Burns MD [address] [place] [address] Closed fracture of left hip, [...] Lukas Diaz 36 year old male CSN: [id number] Date of service: 01/07/2022 HPI Lukas Diaz [...] ??? vitamin D, ergocalciferol, (DRISDOL) 1.25 MG (91731 UT) capsule Take 1 (one) capsule by [...] st Contact Info) Description 11/29/2024 8:30 AM ESTHETICIAN/SPA COORDINATOR Office Visit [facility] - Orthopedic Surgery [address] [facility] [address] Toño Cabrera MD [address] [facility] [address] [place] [address] 01/08/2025 8:00 AM CDT Appointment [facility] [address] [place] [address] 01/08/2025 9:00 AM CDT Office Visit [facility] - GI [address] [place] [address], [place] [phone] Amos Pabon MD [address] [place] [address] [place] [address] documented as of this encounter Goals Goal [...] Primary documented in this encounter Care Teams Carbide Grinder Relationship Specialty Start Date End Date Major Kraft MD PCP - General 07/01/21 06/08/22 Eric Oconnell MD Hospitalist 10/10/21 documented as of this encounter
--- OUTSIDE RECORDS SUMMARY | 2024-11-05 08:51 | XMS_ITS | Clinical Summary ---
Author Organization [facility] Address [address] [place] [address] Care Team Providers Care Bicycle Repair Technician Name Role Phone Major Kraft MD Primary Care Provider [phone] Amos Pabon MD Unavailable [phone] Allergies Active Allergy Reactions Criticality Noted Date [...] uit: Not Asked; Counseling Given: Not Answered [facility] Utilities Answer Date Recorded In the past 12 months has th e [employer], gas, oil, or water [employer] threatened to shut off services in your [...] week 09/29/2023 How often do you attend [facility] or quaker services? Never 09/29/2023 Do you belong to any clubs o r organizations such as jain groups, unions, fraternal or athletic groups, or [...] on file Legal Sex Male 1:24 PM NEEDLE SETTER Gender Identity Not on file Sexual Orientation Not on file Occupation Industry Job Start Date Job End Date disabled Not on file Not on file Not on file Obstetrics History Last Filed Vital Signs Vital Sign Reading Time Taken Comments Blood Pressure 130/65 10/26/2023 4:38 AM NEEDLE SETTER Pulse 68 10/26/2023 4:38 AM NEEDLE SETTER Temperature 36.5 ??C (97.7 ??F) 10/26/2023 4:38 AM CS T Respiratory Rate 18 10/26/2023 4:38 AM NEEDLE SETTER Oxygen Saturation 96% 10/26/2023 4:38 AM NEEDLE SETTER Inhaled Oxygen Concentration - - Weight 90.6 kg (199 lb 11.8 oz) 10/05/2023 7:48 AM NEEDLE SETTER Height 170.2 cm (5' 7.01 ) 09/30/2023 7:38 AM CS T Body Mass Index 31.28 09/30/2023 7:38 AM NEEDLE SETTER Plan of Treatment Health Maintenance Due Date [...] patient's age to complete this topic Insurance [facility] Advance Directives For more information, please contact: [phone] * Full Code (Latest Code Status on File) Date Activated Date Inactivated Comments 09/30/2023 7:23 AM 10/05/2023 5:12 PM Care Teams Bicycle Repair Technician Relationship Specialty Start Date End Date Major Kraft MD PCP - General Internal Medicine 11/07/21 Amos Pabon MD [address] [address] Referring Physician Internal Medicine 10/05/23
--- OUTSIDE RECORDS SUMMARY | 2024-11-05 08:51 | XMS_ITS | Encounter Summary ---
Author Organization [facility] Address [address] [place] [address] Care Team Providers Care Painter And Decorator Apprentice Name Role Phone Major Kraft MD Primary Care Provider + [phone] Reason for Referral * Radiology Services (Routine) - Closed Specialty Diagnoses / Procedures Referred By Contac t Referred To Contact Diagnoses Cirrhosis of liver with ascites, unspecified hepatic cirrhosis type (HCC) Procedures US ABDOMEN LIMITED Amos Pabon MD [address] [place] [address] [place] [address] [facility] [address] [place] [address] Referral ID Status Reason Start Date Expiration Date Visits Re quested Visits Authorized [id number] Closed 10/01/2021 10/01/2022 1 1 O JOURNALIST Reason for Visit * Reason Comments Cirrhosis Encounter Details Date Type Department Care Team (Late st Contact Info) Description 10/01/2021 10:00 AM RADIO JOURNALIST Office Visit [facility] - [address] [facility], [place] [phone] Major Kraft MD [address] [place] [phone] Cirrhosis of liver with ascites, unspecified hepatic [...] COVID-19? No / Unsure 10/01/2021 10:22 AM RADIO JOURNALIST documented as of this encounter Last Filed Vital Signs Vital Sign Reading Time Taken Comments Blood Pressure 119/76 10/01/2021 9:37 AM RADIO JOURNALIST Pulse 92 10/01/2021 9:37 AM RADIO JOURNALIST Temperature - - Respiratory Rate 20 10/01/2021 9:37 AM RADIO JOURNALIST Oxygen Saturation 100% 10/01/2021 9:37 AM RADIO JOURNALIST Inhaled Oxygen Concentration - - Weight 85.3 kg (188 lb) 10/01/2021 9:37 AM RADIO JOURNALIST Height 170.2 cm (5' 7 ) 10/01/2021 9:37 AM RADIO JOURNALIST Body Mass Index 29.44 10/01/2021 9:37 AM RADIO JOURNALIST documented in this encounter Patient Instructions * Patient Instructions* Sheridan Ng RN - 10/01/2021 12:06 PM RADIO JOURNALIST No fluid restriction is needed. Will check labs and update further instructions. O JOURNALIST documented in this encounter Progress Notes * [...] [facility] for which [facility]. Prior to that he was living by himself renting an apartment. Only father is his family close by. 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 He never drove a car or license. [...] RFLX CONFIRMATION ??? HEPATITIS C ANTIBODY ??? [id number] BLOOD ??? TIFFANY BLOOD SCREEN W/REFLEX TITER [...] use Working on disability Lives at a fci/rehab place since the last hospitalization Social History [...] involved in the discussion. Amos Pabon MD information technology data analyst Gastroenterology and Hepatology Abdominal Organ Transplatation [facility] October 01, 2021 O JOURNALIST documented in this encounter Plan of Treatment Upcoming Encounters Date Type Department Care Team (Late st Contact Info) Description 11/29/2024 8:30 AM RADIO JOURNALIST Office Visit [facility] - Orthopedic Surgery [address] [place] [address] Toño Cabrera MD 10[address] [facility] [address] [place] [address] 01/08/2025 8:00 AM CDT Appointment [facility] US [address] [place] [address] 01/08/2025 9:00 AM CDT Office Visit [facility] - GI [address] [facility], [place] [address] Amos Pabon MD [address] [place] [address] [place] [address] documented as of this encounter Goals Goal [...] * US ABDOMEN LIMITED (10/21/2021 10:20 AM RADIO JOURNALIST) Anatomical Region Laterality Modality Abdomen Ultrasound 10/21/2021 10:4 4 AM RADIO JOURNALIST Impressions 10/21/2021 11:38 AM RADIO JOURNALIST IMPRESSION: 1.Hepatic cirrhosis with sequela of portal hypertension (recanalization of the umbilical vein) without discrete hepatic lesion. 2.Splenomegaly. 3.No evidence of cholelithiasis or acute cholecystitis. Dictated by Lawrence Meyers D.O. (Flotation Tender Helper) I, Dr. BINA PEREZ M.D. have personally reviewed and interpreted this examination/study. This report was electronically signed by BINA PEREZ M.D. ??on 10/21/2021 11:38 AM . Narrative 10/21/2021 11:38 AM RADIO JOURNALIST EXAMINATION: Limited abdominal sonogram HISTORY: K74.60: Cirrhosis [...] acute cholecystitis. Dictated by Lawrence Meyers D.O. (Flotation Tender Helper) I, Dr. BINA PEREZ M.D. have personally reviewed and interpreted this examination/study. This report was electronically signed by BINA PEREZ M.D. on10/21/2021 11:38 AM . Amos Pabon MD ORDERABLES * (ABNORMAL) IRON BLOOD (10/01/2021 11:38 AM RADIO JOURNALIST) Iron 17(L) 50 - 175 ug/dL 10/01/2021 12:55 PM RADIO JOURNALIST [facility] Blood BLOOD SPECIMEN / Unknown Lab Venipuncture / Unknown 10/01/2021 11:38 AM RADIO JOURNALIST 10/01/2021 11:46 AM RADIO JOURNALIST Amos Pabon MD LAB - CHEMISTRY KURT ZARAGOZA Performing Organization Address City/[facility]/ZIP Co de Phone Number [address] [address], [facility] [phone] * (ABNORMAL) IGG BLOOD (10/01/2021 11:38 AM RADIO JOURNALIST) IgG 2,513(H) 767-1,590 mg/dL 10/01/2021 12:55 PM RADIO JOURNALIST [facility] Blood BLOOD SPECIMEN / Unknown Lab Venipuncture / Unknown 10/01/2021 11:38 AM RADIO JOURNALIST 10/01/2021 11:46 AM RADIO JOURNALIST Amos Pabon MD LAB - CHEMISTRY ORDSukhjinder ZARAGOZA [address] [address], [facility] [phone] * (ABNORMAL) FERRITIN (10/01/2021 11:38 AM RADIO JOURNALIST) Ferritin 19(L) 22 - 275 ng/mL 10/01/2021 1:14 PM RADIO JOURNALIST [facility] Blood BLOOD SPECIMEN / Unknown Lab Venipuncture / Unknown 10/01/2021 11:38 AM RADIO JOURNALIST 10/01/2021 11:46 AM RADIO JOURNALIST Amos Pabon MD LAB - CHEMISTRY KURT ZARAGOZA [place] [address] [place] [id number], [facility] [phone] * TIFFANY BLOOD SCREEN W/REFLEX TITER (10/01/2021 11:38 AM RADIO JOURNALIST) TIFFANY IgG None Detected None Detected 10/04/2021 12:34 AM RADIO JOURNALIST [facility] ([facility]) Comment: If suspicion of connective tissue disease is strong and TIFFANY EIA is negative, consider testing for TIFFANY by IFA ([id number]). INTERPRETIVE INFORMATION: Anti-Nuclear Antibodies (TIFFANY), IgG by SAVANNAH Antinuclear Antibodies (TIFFANY), IgG by SAVANNAH: TIFFANY specimens are screened using enzyme-linked immunosorbent assay (SAVANNAH) methodology. All SAVANNAH results reported as Detected are further tested by indirect fluorescent assay (IFA) using HEp-2 substrate with an IgG-specific conjugate. The TIFFANY SAVANNAH screen is designed to detect antibodies against dsDNA, histones, SS-A (Ro), SS-B (La), Clayton, Clayton/FLOOR SUPERVISOR, Scl-70, Nuris-1, centromeric proteins, other antigens extracted from the HEp-2 cell nucleus. TIFFANY SAVANNAH assays have been reported to have lower sensitivities than TIFFANY IFA for systemic autoimmune rheumatic diseases (SARD). Negative results do not necessarily rule out SARD. Performed By: [employer] [address] [place] [address] Circuit Rider: Ivanna Ballard MD Blood BLOOD SPECIMEN / Unknown Lab Venipuncture / Unknown 10/01/2021 11:38 AM RADIO JOURNALIST 10/01/2021 11:45 AM RADIO JOURNALIST Amos Pabon MD LAB - CHEMISTRY KURT ZARAGOZA [facility]) [address] * [id number] BLOOD (10/01/2021 11:38 AM RADIO JOURNALIST) Agpeq-0-Dxasby ypsin 159 90 - 200 mg/dL 10/01/2021 12:55 PM RADIO JOURNALIST [facility] Blood BLOOD SPECIMEN / Unknown Lab Venipuncture / Unknown 10/01/2021 11:38 AM RADIO JOURNALIST 10/01/2021 11:46 AM RADIO JOURNALIST Amos Pabon MD LAB - CHEMISTRY KURT ZARAGOZA [address] [address], [place] [phone] * HEPATITIS C ANTIBODY (10/01/2021 11:38 AM RADIO JOURNALIST) Hepatitis C Antibody Non-react young Non-reac tive 10/01/2021 1:14 PM RADIO JOURNALIST [facility] Comment:Hepatitis C Antibody screen indicates no serologic evidence of past or current infection with Hepatitis C Virus. Patients with unexplained liver disease who are immunocompromised or suspected of having acute Hepatitis C infection may benefit from Nucleic Acid Test (MARIBELL) for Hepatitis C Viral RNA to confirm Hepatitis C status. Blood BLOOD SPECIMEN / Unknown Lab Venipuncture / Unknown 10/01/2021 11:38 AM RADIO JOURNALIST 10/01/2021 11:46 AM RADIO JOURNALIST Amos Pabon MD LAB - CHEMISTRY KURT ZARAGOZA Performing Organization Address [facility]/ZIP Co de Phone Number [address] [address], [place] [phone] * HEPATITIS B SURFACE ANTIGEN W RFLX CONFIRMATION (10/01/2021 11:38 AM RADIO JOURNALIST) Hepatitis B Virus Surface Antigen Non-reacti ve Non-reacti ve 10/01/2021 1:14 PM RADIO JOURNALIST [facility] Blood BLOOD SPECIMEN / Unknown Lab Venipuncture / Unknown 10/01/2021 11:38 AM RADIO JOURNALIST 10/01/2021 11:46 AM RADIO JOURNALIST Amos Pabon MD LAB - CHEMISTRY KURT ZARAGOZA Performing Organization Address City/[facility]/ZIP Co de Phone Number [address] [address], [place] [phone] * (ABNORMAL) HEPATITIS B SURFACE ANTIBODY (10/01/2021 11:38 AM RADIO JOURNALIST) Hepatitis B Virus Surface Antibody Reactive( A) Non-react young 10/01/2021 1:14 PM [facility] Comment: > 12 mIU/mL Hepatitis B surface Antibody (HBsAb). Reactive for HBsAb - individual is considered immune to Hepatitis B Virus infection. Hepatitis B Surface Antibody Quantitative 50.9(H) <8.0 mIU/mL 10/01/2021 1:14 PM [facility] Comment: Hepatitis B Surface Antibody Numeric Result Interpretation: ? Nonreactive: ?<8.0 mIU/mL ? Indeterminate: ??8.0 - 12.0 mIU/mL ? Reactive: ?>12.0 mIU/mL ? Blood BLOOD SPECIMEN / Unknown Lab Venipuncture / Unknown 10/01/2021 11:38 AM RADIO JOURNALIST 10/01/2021 11:46 AM RADIO JOURNALIST Amos Pabon MD LAB - CHEMISTRY KURT ZARAGOZA Performing Organization Address [facility] Co de Phone Number [address] [address], [facility] [phone] * HEPATITIS B CORE ANTIBODY (10/01/2021 11:38 AM RADIO JOURNALIST) HBc Antibody Total Non-reacti ve Non-reacti ve 10/01/2021 1:14 PM RADIO JOURNALIST [facility] Blood BLOOD SPECIMEN / Unknown Lab Venipuncture / Unknown 10/01/2021 11:38 AM RADIO JOURNALIST 10/01/2021 11:46 AM RADIO JOURNALIST Amos Pabon MD LAB - CHEMISTRY KURT ZARAGOZA Performing Organization Address City/[facility]/ZIP Co de Phone Number [address] [address], [place] [phone] * (ABNORMAL) HEPATITIS A ANTIBODY (10/01/2021 11:38 AM RADIO JOURNALIST) [facility] Hepatitis A Virus Antibody Total Positive( A) Negative 10/03/2021 5:38 PM RADIO JOURNALIST [facility] ([facility]) Comment: The positive anti-HAV is consistent with recent or remote Hepatitis A infection or antibody response to HAV vaccination. False positive anti-HAV can occur. Performed by [facility] [employer], [address] [place] [address] [email or web address], Ivanna Ballard MD, Lab. Director Blood BLOOD SPECIMEN / Unknown Lab Venipuncture / Unknown 10/01/2021 11:38 AM RADIO JOURNALIST 10/01/2021 11:45 AM RADIO JOURNALIST Amos Pabon MD LAB - CHEMISTRY ORDE RABLES Performing Organization Address [facility] Co de Phone Number [facility]) [address] * (ABNORMAL) PT-INR [facility] (10/01/2021 11:38 AM RADIO JOURNALIST) [facility] PT 15.5(H) 12.1 - 14.8 Seconds 10/01/2021 12:07 PM RADIO JOURNALIST [facility]OR[facility] INR 1.2 See Comment 10/01/2021 12:07 PM RADIO JOURNALIST [facility] Comment:The suggested therap eutic range for standard coumadin (warfarin) therapy is an INR of 2.0-3.0. For high-risk patients (Mechanical Mitral Valve Prosthesis, etc.), the suggested prophylactic therapeutic range is an INR of 2.5-3.5. Blood BLOOD SPECIMEN / Unknown Lab Venipuncture / Unknown 10/01/2021 11:38 AM RADIO JOURNALIST 10/01/2021 11:46 AM RADIO JOURNALIST Amos Pabon MD LAB - COAGULATION OR DERABLES [facility] [address] [place] [address], [place] [phone] * (ABNORMAL) HEPATIC FUNCTION PANEL (10/01/2021 11:38 AM RADIO JOURNALIST) [facility] Protein Total 8.6(H) 6.0 - 8.3 g/dL 12:16 PM [facility] Albumin 3.3(L) 3.4 - 5.0 g/dL 10/01/2021 12:16 PM [facility] Bilirubin Total 0.6 0.2 - 1.2 mg/dL 05/2021 12:16 PM [facility] Bilirubin Conjugated 0.2 0.1 - 0.5 mg/dL 10/01/2021 12:16 PM [facility] Bilirubin Unconjugated 0.4 Unconjugated Bilirubin is a calculated value: Reference ranges have not been established. mg/dL 10/01/2021 12:16 PM [facility] Alkaline Phosphatase 134 40 - 150 U/L 10/01/2021 12:16 PM [facility] ALT 24 5 - 55 U/L 10/01/2021 12:16 PM [facility] AST 34 5 - 34 U/L 10/01/2021 12:16 PM [facility] Albumin/Globulin Ratio 0.6(L) 1.1 - 2.3 10/01/2021 12:16 PM [facility] Blood BLOOD SPECIMEN / Unknown Lab Venipuncture / Unknown 10/01/2021 11:38 AM RADIO JOURNALIST 10/01/2021 11:46 AM RADIO JOURNALIST Amos Pabon MD LAB - CHEMISTRY KURT ZARAGOZA [facility] Organization Address City/State/[facility] Co de Phone Number [facility] [address] [place] [phone] [phone] * (ABNORMAL) BASIC METABOLIC PANEL (CALCIUM TOTAL) (10/01/2021 11:38 AM RADIO JOURNALIST) [facility] BUN 10 7 - 26 mg/dL 10/01/2021 12:16 PM [facility] Creatinine 0.67(L) 0.71 - 1.16 mg/dL 10/01/2021 12:16 PM [facility] Sodium 136 136 - 145 mmol/L 10/01/2021 12:16 PM [facility] Potassium 3.8 3.5 - 4.5 mmol/L 10/01/2021 12:16 PM [facility] Chloride 105 98 - 107 mmol/L 10/01/2021 12:16 PM [facility] CO2 23 22 - 29 mmol/L 10/01/2021 12:16 PM [facility] Glucose 111 70 - 115 mg/dL 10/01/2021 12:16 PM [facility] Calcium 9.1 8.4 - 10.2 mg/dL 10/01/2021 12:16 PM [facility] Anion Gap 12 8 - 18 10/01/2021 12:16 PM [facility] BUN/Creatinine Ratio 15 7 - 23 10/01/2021 12:16 PM [facility] Osmolality Calculated 282 270 - 300 mOsm/kg 10/01/2021 12:16 PM [facility] eGFR by CKD-EPI >90 >=90 mL/min/1.7 3 m2 10/01/2021 12:16 PM [facility] Blood BLOOD SPECIMEN / Unknown Lab Venipuncture / Unknown 10/01/2021 11:38 AM RADIO JOURNALIST 10/01/2021 11:46 AM [facility] Amos Pabon MD LAB - CHEMISTRY ORDE NIK [facility] Organization Address City/State/ZIP Co de Phone Number [facility] [address] [place] [phone], [facility] [phone] * (ABNORMAL) CBC W/O DIFFERENTIAL (10/01/2021 11:38 AM RADIO JOURNALIST) WBC 4.3 3.5 - 10.5 10? 3 /uL 10/01/2021 12:06 PM [facility] RBC 3.52(L) 4.30 - 5.70 10? 6 /uL 10/01/2021 12:06 PM [facility] Hemoglobin 9.8(L) 12.0 - 17.6 g/dL 10/01/2021 12:06 PM [facility] Hematocrit 31.0(L) 35.2 - 51.7 % 10/01/2021 12:06 PM [facility] MCV 88.1 80.7 - 98.3 fL 10/01/2021 12:06 PM [facility] MCH 27.8 26.7 - 34.0 pg 10/01/2021 12:06 PM [facility] MCHC 31.6 30.8 - 35.9 g/dL 10/01/2021 12:06 PM [facility] Platelet Count 209 150 - 400 10? 3 /uL 10/01/2021 12:06 PM [facility] RDW-SD 51.8(H) 36.0 - 50.0 fL 10/01/2021 12:06 PM [facility] RDW-CV 15.9(H) 11.2 - 14.8 % 10/01/2021 12:06 PM [facility] MPV 9.2(L) 9.4 - 12.9 fL 10/01/2021 12:06 PM [facility] nRBC Absolute 0.00 0 10? 3 /uL 10/01/2021 12:06 PM [facility] nRBC Auto 0.0 0 /100 WBC 10/01/2021 12:06 PM [facility] Blood BLOOD SPECIMEN / Unknown Lab Venipuncture / Unknown 10/01/2021 11:38 AM RADIO JOURNALIST 10/01/2021 11:51 AM RADIO JOURNALIST Amos Pabon MD LAB - HEMATOLOGY ORD ERABLES [facility] [address] [place] [address], [facility] [phone] * ALPHA FETOPROTEIN BLOOD TUMOR MARKER (10/01/2021 11:38 AM RADIO JOURNALIST) Alpha-Fetoprote in Tumor Marker 2.6 <=8.3 ng/mL 10/01/2021 12:35 PM [facility] Comment: AFP values will vary depending on testing procedure used. Results are not comparable across different methods. AFP values obtained by [facility] using an Jenkins Alinity Immunoassay. Blood BLOOD SPECIMEN / Unknown Lab Venipuncture / Unknown 10/01/2021 11:38 AM RADIO JOURNALIST 10/01/2021 11:51 AM RADIO JOURNALIST Amos Pabon MD LAB - CHEMISTRY KURT Cid Organization Address City/State/ZIP Co de Phone Number [facility] [address] [address], [facility] [phone] documented in this encounter Visit Diagnoses Diagnosis Cirrhosis of liver with ascites, unspecified hepatic cirrhosis type (HCC)- Primary Alcoholic cirrhosis of liver with ascites (HCC) Alcoholic cirrhosis of liver Alcohol use disorder, mild, abuse Anemia, unspecified type Liver failure without hepatic coma, unspecified chronicity (HCC) Cirrhosis of liver with ascites, unspecified hepatic cirrhosis type (HCC) documented in this encounter Care Teams Painter And Decorator Apprentice Relationship Specialty Start Date End Date Major Kraft MD PCP - General 07/01/21 06/08/22 documented as of this encounter
--- OUTSIDE RECORDS SUMMARY | 2024-11-05 08:51 | XMS_ITS | Encounter Summary ---
Author Organization [facility] Address [address] [facility] [place] [address] Care Team Providers Care Pump House Operator Name Role Phone Major Kraft MD Primary Care Provider [phone] Eric Oconnell MD Unavailable + [phone] Encounter Details Date Type Department Care Team (Late st Contact Info) Description 02/22/2022 Orders Only [facility] [place] [address] [place] [address], [place] [phone] Amos Pabon MD [address] [place] [address] [place] [address] Social History Tobacco Use Types Packs/Day Years [...] st Contact Info) Description 11/29/2024 8:30 AM LEASING DIRECTOR Office Visit [facility] - Orthopedic Surgery [address] [place] [address] Toño Cabrera MD [address] [address] 01/08/2025 8:00 AM CDT Appointment [facility] [address] [place] [address] 01/08/2025 9:00 AM CDT Office Visit [facility] - GI [address] [facility], [place] [address] Amos Pabon MD [address] [place] [address] [place] [address] documented as of this encounter Goals Goal [...] on filedocumented in this encounter Care Teams Pump House Operator Relationship Specialty Start Date End Date Ampadu, Major W, MD PCP - General 07/01/21 06/08/22 Eric Oconnell MD Hospitalist 10/10/21 documented as of this encounter
--- OUTSIDE RECORDS SUMMARY | 2024-11-05 08:51 | XMS_ITS | Encounter Summary ---
Author Organization [facility] Address [address] [place] [address] Care Team Providers Care Flight Instructor Name Role Phone Major Kraft MD Primary Care Provider [phone] Eric Oconnell MD Unavailable + [phone] Reason for Visit * Reason Onset Date Comments Care Management 11/11/2021 Encounter Details Date Type Department Care Team (Late st Contact Info) Description 11/11/2021 Telephone [facility] - [address] [facility], [place] [address] Adilson Raygoza, RN Care Management Social History [...] COVID-19? No / Unsure 10/21/2021 9:44 AM SAP BASIS ARCHITECT documented as of this encounter Miscellaneous Notes [...] facility and can speak with his RN. BASIS ARCHITECT documented in this encounter Plan of Treatment Upcoming Encounters Date Type Department Care Team (Late st Contact Info) Description 11/29/2024 8:30 AM SAP BASIS ARCHITECT Office Visit [facility] - Orthopedic Surgery [address] [facility] [place] [address] Toño Cabrera MD 10[address] [facility] [address] [place] [address] 01/08/2025 8:00 AM CDT Appointment [facility] [address] [place] [address] 01/08/2025 9:00 AM CDT Office Visit [facility] - GI [address] [facility], [place] [address] Amos Pabon MD [address] [place] [address] [address] [facility] [place] [address] documented as of this encounter Goals Goal [...] on filedocumented in this encounter Care Teams Flight Instructor Relationship Specialty Start Date End Date Major Kraft MD PCP - General 07/01/21 06/08/22 Eric Oconnell MD Hospitalist 10/10/21 documented as of this encounter
--- OUTSIDE RECORDS SUMMARY | 2024-11-05 08:51 | XMS_ITS | Encounter Summary ---
Author Organization [facility] Address [address] [place] [address] Care Team Providers Care Cabin Supervisor Name Role Phone Major Kraft MD Primary Care Provider + [phone] Eric Oconnell MD Unavailable + [phone] Reason for Visit * Reason Onset Date Comments Medication Issue 10/22/2021 Encounter Details Date Type Department Care Team (Late st Contact Info) Description 10/22/2021 Telephone [facility] - [address] [place] [address] [place] [phone] Fouzia Payne RN Medication Issue Social History [...] COVID-19? No / Unsure 10/21/2021 9:44 AM BEAMING MACHINE OPERATOR documented as of this encounter [...] results on recent US per ALFREDO Swartz ING MACHINE OPERATOR documented in this encounter Plan of Treatment Upcoming Encounters Date Type Department Care Team (Late st Contact Info) Description 11/29/2024 8:30 AM BEAMING MACHINE OPERATOR Office Visit [facility] - Orthopedic Surgery [address] [facility] [place] [address] Toño Cabrera MD [address] [facility] [address] [place] [address] 01/08/2025 8:00 AM CDT Appointment [facility] [address] [place] [address] 01/08/2025 9:00 AM CDT Office Visit [facility] - GI [address] [facility], [place] [phone] Amos Pabon MD [address] [place] [address] [address] [place] [address] documented as of this encounter Goals Goal [...] on filedocumented in this encounter Care Teams Cabin Supervisor Relationship Specialty Start Date End Date Major Kraft MD PCP - General 07/01/21 06/08/22 Eric Oconnell MD Hospitalist 10/10/21 documented as of this encounter
--- OUTSIDE RECORDS SUMMARY | 2024-11-05 08:51 | XMS_ITS | Encounter Summary ---
Author Organization [facility] Address [address] [facility] [place] [address] Care Team Providers Care Senior Software Engineering Manager Name Role Phone Major Kraft MD Primary Care Provider + [phone] Eric Oconnell MD Unavailable + [phone] Encounter Details Date Type Department Care Team (Late st Contact Info) Description 01/02/2022 Orders Only [facility] - [address] [facility], [place] [address] Fouzia Payne, RN Social History Tobacco Use [...] st Contact Info) Description 11/29/2024 8:30 AM MACHINE III COREMAKER Office Visit [facility] - Orthopedic Surgery [address] [place] [address] Toño Cabrera MD [address] [facility] 280 [place] [address] 01/08/2025 8:00 AM CDT Appointment [facility] 12[address] [place] [address] 01/08/2025 9:00 AM CDT Office Visit [facility] - GI [address] [facility], [place] [address] Amos Pabon MD [address] [place] [address] [place] [address] documented as of this encounter Goals Goal [...] on filedocumented in this encounter Care Teams Senior Software Engineering Manager Relationship Specialty Start Date End Date Major Kraft MD PCP - General 07/01/21 06/08/22 Eric Oconnell MD Hospitalist 10/10/21 documented as of this encounter
--- OUTSIDE RECORDS SUMMARY | 2024-11-05 08:51 | XMS_ITS | Encounter Summary ---
Author Organization [facility] Address [address] [facility] [place] [address] Care Team Providers Care Speech Lang Path Name Role Phone Major Kraft MD Primary Care Provider + [phone] Eric Oconnell MD Unavailable + [phone] Reason for Visit * Reason Onset Date Comments LABS ONLY 01/02/2022 Encounter Details Date Type Department Care Team (Late st Contact Info) Description 01/02/2022 Telephone [facility] - [address] [facility], [place] [phone] Fouzia Payne, RN LABS ONLY Social History [...] Patient calls needing lab orders sent to [facility] fax number- [phone] Labs ordered and faxed. STOCK FARM MANAGER documented in this encounter Plan of Treatment Upcoming Encounters Date Type Department Care Team (Late st Contact Info) Description 11/29/2024 8:30 AM LIVESTOCK FARM MANAGER Office Visit [facility] - Orthopedic Surgery [address] [place] [address] Toño Cabrera MD [address] [facility] 280 [place] [address] 01/08/2025 8:00 AM CDT Appointment [facility] 1201 [place] [address] 01/08/2025 9:00 AM CDT Office Visit [facility] - GI [address] [facility], [place] [address] Amos Pabon MD [address] [place] [address] [place] [address] Scheduled Orders Name Type Priority Associated Diagnoses [...] Primary documented in this encounter Care Teams Speech Lang Path Relationship Specialty Start Date End Date Major Kraft MD PCP - General 07/01/21 06/08/22 Eric Oconnell MD Hospitalist 10/10/21 documented as of this encounter
--- OUTSIDE RECORDS SUMMARY | 2024-11-05 08:51 | XMS_ITS | Encounter Summary ---
Author Organization [facility] Address [address] [place] [address] Care Team Providers Care Freight Hustler Name Role Phone Major Kraft MD Primary Care Provider + [phone] Eric Oconnell MD Unavailable + [phone] Reason for Visit * Reason Onset Date Comments Results 10/10/2021 Encounter Details Date Type Department Care Team (Late st Contact Info) Description 10/10/2021 Telephone [facility] - [address] [place] [phone] Sheridan Ng RN Results Social History Tobacco [...] COVID-19? No / Unsure 10/01/2021 10:22 AM COMMERCIAL REAL ESTATE UNDERWRITER documented as of this encounter Miscellaneous Notes [...] understanding. Order for OTC iron faxed to [facility] re[facility] at [phone]. Next scope on 11/11/20. Patient asks if xifaxin is being ordered. Will clarify with Dr. Pabon. Faxing note to Dr. Eric Cat, local GI, with lab results. ERCIAL REAL ESTATE UNDERWRITER documented in this encounter Plan of Treatment Upcoming Encounters Date Type Department Care Team (Late st Contact Info) Description 11/29/2024 8:30 AM COMMERCIAL REAL ESTATE UNDERWRITER Office Visit [facility] - Orthopedic Surgery [address] [place] [address] Toño Cabrera MD [address] [facility] 280 [place] [address] 01/08/2025 8:[address] [facility] 12[address] [place] [address] 01/08/2025 9:00 AM CDT Office Visit [facility] - GI [address] [facility], [place] [address] Amos Pabon MD [address] [place] [address] [place] [address] documented as of this encounter Goals Goal [...] filedocumented in this encounter Care Teams Freight Hustler Relationship Specialty Start Date End Date Major Kraft MD PCP - General 07/01/21 06/08/22 Eric Oconnell MD Hospitalist 10/10/21 documented as of this encounter
--- OUTSIDE RECORDS SUMMARY | 2024-11-05 08:51 | XMS_ITS | Encounter Summary ---
Author Organization [facility] Address [address] [facility] [place] [address] Care Team Providers Care Coverstitch Machine Operator Name Role Phone Major Kraft MD Primary Care Provider [phone] Eric Oconnell MD Unavailable + [phone] Encounter Details Date Type Department Care Team (Late st Contact Info) Description 01/05/2022 Orders Only [facility] - Orthopedics [address] [facility], [place] [address] David Burns MD [address] [place] [address] Orthopedic aftercare Social History Tobacco [...] st Contact Info) Description 11/29/2024 8:30 AM ANTIQUE FINISHER Office Visit [facility] - Orthopedic Surgery 10[address] [place] [address] Toño Cabrera MD [address] [facility] 280 [place] [address] 01/08/2025 8:00 AM CDT Appointment [facility] 1201 [place] [address] 01/08/2025 9:00 AM CDT Office Visit [facility] - GI [address] [facility], [place] [address] Amos Pabon MD [address] [place] [address] [place] [address] documented as of this encounter Goals Goal [...] aftercare documented in this encounter Care Teams Coverstitch Machine Operator Relationship Specialty Start Date End Date Major Kraft MD PCP - General 07/01/21 06/08/22 Eric Oconnell MD Hospitalist 10/10/21 documented as of this encounter
--- OUTSIDE RECORDS SUMMARY | 2024-11-05 08:51 | XMS_ITS | Encounter Summary ---
Author Organization [facility] Address [address] [facility] [place] [address] Care Team Providers Care Tube Dispatcher Name Role Phone Major Kraft MD Primary Care Provider + [phone] Eric Oconnell MD Unavailable + [phone] Reason for Visit * Reason Onset Date Comments Follow-up 11/13/2021 Encounter Details Date Type Department Care Team (Late st Contact Info) Description 11/13/2021 Telephone [facility] - [address] [place] [address] Sheridan Ng, RN Follow-up Social History Tobacco [...] COVID-19? No / Unsure 10/21/2021 9:44 AM USABILITY SPECIALIST documented as of this encounter Miscellaneous Notes * Telephone Encounter - Sheridan Ng RN - 11/13/2021 4:12 PM CST Called and spoke with RN at [facility]. Relayed message from Dr. Pabon: Let us have him do a CBC, CMP, INR, Amylase, Lipase, PeTH test done here or locally. Recent US was overall unremarkable. If not feeling better needs to go to ER. They will lab fax results to our office. RN states understanding of message. ILITY SPECIALIST documented in this encounter Plan of Treatment Upcoming Encounters Date Type Department Care Team (Late st Contact Info) Description 11/29/2024 8:30 AM USABILITY SPECIALIST Office Visit [facility] - Orthopedic Surgery [address] [facility] [place] [address] Toño Cabrera MD [address] [facility] 280 [place] [address] 01/08/2025 8:[address] [facility] 1201 [place] [address] 01/08/2025 9:00 AM CDT Office Visit [facility] - GI [address] [facility], [place] [address] Amos Pabon MD [address] [place] [address] [place] [address] documented as of this encounter Goals Goal [...] on filedocumented in this encounter Care Teams Tube Dispatcher Relationship Specialty Start Date End Date Major Kraft MD PCP - General 07/01/21 06/08/22 Eric Oconnell MD Hospitalist 10/10/21 documented as of this encounter
--- OUTSIDE RECORDS SUMMARY | 2024-11-05 08:51 | XMS_ITS | Referral Summary ---
Author Organization [facility] Address [address] [place] [address] Care Team Providers Care Marketing Communications Coordinator Name Role Phone Major Kraft MD Primary Care Provider Amos Pabon MD Unavailable [phone] Allergies Active Allergy Reactions Criticality Noted Date [...] uit: Not Asked; Counseling Given: Not Answered [facility] Utilities Answer Date Recorded In [...] any clubs o r organizations such as methodist groups, unions, fraternal or athletic groups, or [...] place to sleep or slept in a correction (including now)? No 09/29/2023 Personal Safety Answer Date Recorded Have you ever been in or are you currently in a harmful physical or emotional relationship or is someone making you feel afraid or unsafe? Denies 09/28/2023 Sex and Gender Information Value Date Recorded Sex Assigned at Not on file Legal Sex Male 1:24 PM CONTRACT ADMINISTRATION SPECIALIST Gender Identity Not on file Sexual Orientation Not on file Occupation Industry Job Start Date Job End Date disabled Not on file Not on file Not on file Last Filed Vital Signs Vital Sign Reading Time Taken Comments Blood Pressure 130/65 10/26/2023 4:38 AM CONTRACT ADMINISTRATION SPECIALIST Pulse 68 10/26/2023 4:38 AM CONTRACT ADMINISTRATION SPECIALIST Temperature 36.5 ??C (97.7 ??F) 10/26/2023 4:38 AM CS T Respiratory Rate 18 10/26/2023 4:38 AM CONTRACT ADMINISTRATION SPECIALIST Oxygen Saturation 96% 10/26/2023 4:38 AM CONTRACT ADMINISTRATION SPECIALIST Inhaled Oxygen Concentration - - Weight 90.6 kg (199 lb 11.8 oz) 10/05/2023 7:48 AM CONTRACT ADMINISTRATION SPECIALIST Height 170.2 cm (5' 7.01 ) 09/30/2023 7:38 AM CS T Body Mass Index 31.28 09/30/2023 7:38 AM CONTRACT ADMINISTRATION SPECIALIST Plan of Treatment Not on file Insurance [facility] [place] [address] Advance Directives For more information, please contact: [phone] * Full Code (Latest Code Status on File) Date Activated Date Inactivated Comments 09/30/2023 7:23 AM 10/05/2023 5:12 PM Care Teams Marketing Communications Coordinator Relationship Specialty Start Date End Date Major Kraft MD PCP - General Internal Medicine 11/07/21 Amos Pabon MD [address] [address] Referring Physician Internal Medicine 10/05/23
--- OUTSIDE RECORDS SUMMARY | 2024-11-05 08:51 | XMS_ITS | Encounter Summary ---
Author Organization [facility] Address [address] [facility] [place] [address] Care Team Providers Care Primary Special Educator Name Role Phone Major Kraft MD Primary Care Provider + [phone] Eric Oconnell MD Unavailable + [phone] Encounter Details Date Type Department Care Team [...] COVID-19? No / Unsure 10/21/2021 9:44 AM EXTENSION SERVICE AGENT documented as of this encounter Plan of Treatment Upcoming Encounters Date Type Department Care Team (Late st Contact Info) Description 11/29/2024 8:30 AM EXTENSION SERVICE AGENT Office Visit [facility] - Orthopedic Surgery 1031 [place] [address] Toño Cabrera MD [address] [address] 01/08/2025 8:00 AM CDT Appointment [address] [address] 01/08/2025 9:00 AM CDT Office Visit [facility] - GI [address] [facility], [place] [address] Amos Pabon MD [address] [place] [address] [place] [address] documented as of this encounter Goals Goal [...] on filedocumented in this encounter Care Teams Primary Special Educator Relationship Specialty Start Date End Date Major Kraft MD PCP - General 07/01/21 06/08/22 Eric Oconnell MD Hospitalist 10/10/21 documented as of this encounter
--- OUTSIDE RECORDS SUMMARY | 2024-11-05 08:51 | XMS_ITS | Encounter Summary ---
Author Organization [facility] Address [address] [facility] [place] [address] Care Team Providers Care Workforce Management Manager Name Role Phone Major Kraft MD Primary Care Provider [phone] Eric Oconnell MD Unavailable + [phone] Encounter Details Date Type Department Care Team (Latest Contact Info) Description 02/16/2022 2:04 PM CDT - 02/16/2022 11:59 PM CDT Hospital Encounter [facility] DRAW STATION [address] [place] [phone] Ayden Stearns MD [address] [place] [address] Discharge Disposition: Home or Self Care Social [...] 02/19/2023 vitamin D, ergocalciferol, (DRISDOL) 1.25 MG (43255 UT) capsule Take 1 (one) capsule by [...] st Contact Info) Description 11/29/2024 8:30 AM DANDY OPERATOR Office Visit [facility] - Orthopedic Surgery [address] [facility] [place] [address] Toño Cabrera MD [address] [facility] 280 [place] [address] 01/08/2025 8:00 AM CDT Appointment [facility] 12[address] [place] [address] 01/08/2025 9:00 AM CDT Office Visit [facility] - GI [address] [facility], [place] [address] Amos Pabon MD [address] [place] [address] [place] [address] documented as of this encounter Goals Goal [...] Name Priority Date/Time Associated Diagnosis Comments PT-INR [facility] Routine 02/16/2022 2:26 PM CDT Cirrhosis of [...] - 8.3 g/dL 022 3:50 PM CDT [facility] Albumin 4.0 3.4 - 5.0 g/dL 02/16/2022 3:50 PM T [facility] Bilirubin Total 0.5 0.2 - 1.2 mg/dL 01/24 3:50 PM [facility] Bilirubin Conjugated 0.3 0.1 - 0.5 mg/dL 02/16/2022 3:50 PM [facility] Bilirubin Unconjugated 0.2 Unconjugated Bilirubin is a calculated value: Reference ranges have not been established. mg/dL 02/16/2022 3:50 PM [facility] Alkaline Phosphatase 130 40 - 150 U/L 02/16/2022 3:50 PM [facility] ALT 20 5 - 55 U/L 02/16/2022 3:50 PM [facility] AST 24 5 - 34 U/L 02/16/2022 3:50 PM [facility] Albumin/Globulin Ratio 0.8(L) 1.1 - 2.3 02/16/2022 3:50 PM [facility] Blood BLOOD SPECIMEN / Unknown Lab Venipuncture / Unknown 02/16/2022 2:26 PM CDT 02/16/2022 3:20 PM CDT Amos Pabon MD LAB - CHEMISTRY [facility] Organization Address City/State/ZIP Co de Phone Number [facility] [address] [place] [address], [facility] [phone] * (ABNORMAL) BASIC METABOLIC PANEL (CALCIUM TOTAL) (02/16/2022 2:26 PM CDT) BUN 9 7 - 26 mg/dL 02/16/2022 3:50 PM T [facility] Creatinine 0.76 0.71 - 1.16 mg/dL 02/16/2022 3:50 PM T [facility] Sodium 139 136 - 145 mmol/L 02/16/2022 3:50 PM T [facility] Potassium 3.7 3.5 - 4.5 mmol/L 02/16/2022 3:50 PM [facility] Chloride 98 98 - 107 mmol/L 02/16/2022 3:50 PM [facility] CO2 31(H) 22 - 29 mmol/L 02/16/2022 3:50 PM T [facility] Glucose 70 70 - 115 mg/dL 02/16/2022 3:50 PM T [facility] Calcium 10.4(H) 8.4 - 10.2 mg/dL 02/16/2022 3:50 PM [facility] Anion Gap 14 8 - 18 02/16/2022 3:50 PM [facility] BUN/Creatinine Ratio 12 7 - 23 02/16/2022 3:50 PM [facility] Osmolality Calculated 285 270 - 300 mOsm/kg 02/16/2022 3:50 PM [facility] eGFR by CKD-EPI >90 >=90 mL/min/1.7 3 m2 02/16/2022 3:50 PM T [facility] Blood BLOOD SPECIMEN / Unknown Lab Venipuncture / Unknown 02/16/2022 2:26 PM CDT 02/16/2022 3:20 PM CDT Amos Pabon MD LAB - CHEMISTRY [facility]UR[facility] Organization Address City/State/ZIP Co de Phone Number [facility] [address] [place] [address], [facility] [phone] * PT-INR [facility] (02/16/2022 2:26 PM CDT) Pathologist [facility] PT 13.5 12.1 - 14.8 Seconds 02/16/2022 3:28 PM CDT [facility] INR 1.0 See Comment 02/16/2022 3:28 PM [facility] Comment:The suggested therap eutic range for standard coumadin (warfarin) therapy is an INR of 2.0-3.0. For high-risk patients (Mechanical Mitral Valve Prosthesis, etc.), the suggested prophylactic therapeutic range is an INR of 2.5-3.5. Blood BLOOD SPECIMEN / Unknown Lab Venipuncture / Unknown 02/16/2022 2:26 PM CDT 02/16/2022 3:12 PM CDT Amos Pabon MD LAB - COAGULATION OR DERABLES [facility] [address] [place] [address], [facility] [phone] * CBC W/O DIFFERENTIAL (02/16/2022 2:26 PM CDT) WBC 9.7 3.5 - 10.5 10? 3 /uL 02/16/2022 3:40 PM CDT [facility] RBC 4.61 4.30 - 5.70 10? 6 /uL 02/16/2022 3:40 PM [facility] Hemoglobin 14.6 12.0 - 17.6 g/dL 02/16/2022 3:40 PM [facility] Hematocrit 43.5 35.2 - 51.7 % 02/16/2022 3:40 PM [facility] MCV 94.4 80.7 - 98.3 fL 02/16/2022 3:40 PM T [facility] MCH 31.7 26.7 - 34.0 pg 02/16/2022 3:40 PM [facility] MCHC 33.6 30.8 - 35.9 g/dL 02/16/2022 3:40 PM [facility] Platelet Count 184 150 - 400 10? 3 /uL 02/16/2022 3:40 PM [facility] RDW-SD 49.4 36.0 - 50.0 fL 02/16/2022 3:40 PM CDT [facility] RDW-CV 14.5 11.2 - 14.8 % 02/16/2022 3:40 PM CDT [facility] MPV 11.6 9.4 - 12.9 fL 02/16/2022 3:40 PM CDT [facility] nRBC Absolute 0.00 0 10? 3 /uL 02/16/2022 3:40 PM CDT [facility] nRBC Auto 0.0 0 /100 WBC 02/16/2022 3:40 PM CDT [facility] Blood BLOOD SPECIMEN / Unknown Lab Venipuncture / Unknown 02/16/2022 2:26 PM CDT 02/16/2022 3:19 PM CDT Amos Pabon MD LAB - HEMATOLOGY ORD [place]KE Performing Organization Address City/[facility]/ZIP Co de Phone Number [address] [address], [place] [phone] * ALPHA FETOPROTEIN BLOOD TUMOR MARKER (02/16/2022 2:26 PM CDT) Alpha-Fetoprote in Tumor Marker 2.9 <=8.3 ng/mL 02/16/2022 4:09 PM CDT [facility] Comment: AFP values will vary depending on testing procedure used. Results are not comparable across different methods. AFP values obtained by [facility] using an Jenkins Alinity Immunoassay. Blood BLOOD SPECIMEN / Unknown Lab Venipuncture / Unknown 02/16/2022 2:26 PM CDT 02/16/2022 3:24 PM CDT Amos Pabon MD LAB - CHEMISTRY [facility] [place] [address] [address], [place] [phone] documented in this encounter Visit Diagnoses Diagnosis Cirrhosis of liver with ascites, unspecified hepatic cirrhosis type (HCC) documented in this encounter Care Teams Workforce Management Manager Relationship Specialty Start Date End Date Major Kraft MD PCP - General 07/01/21 06/08/22 Eric Oconnell MD Hospitalist 10/10/21 documented as of this encounter
--- OUTSIDE RECORDS SUMMARY | 2024-11-05 08:51 | XMS_ITS | Encounter Summary ---
Author Organization [facility] Address [address] [facility] [place] [address] Care Team Providers Care Ski Edge Painter Name Role Phone Major Kraft MD Primary Care Provider + [phone] Eric Oconnell MD Unavailable + [phone] Reason for Visit * Reason Onset Date Comments Pain 11/19/2021 Encounter Details Date Type Department Care Team (Late st Contact Info) Description 11/19/2021 Telephone [facility] - [address] [phone] Anai Hahn RN Pain Social History Tobacco [...] COVID-19? No / Unsure 10/21/2021 9:44 AM E LEARNING MANAGER documented as of this encounter Miscellaneous Notes * Telephone Encounter - Sheridan Ng RN - 11/21/2021 9:14 AM CST Called patients living facility and relayed message from Dr. Pabon that it is okay for the patient to take 50 mg Tramadol every 6 hours as needed for pain. RN Valeria states understanding. E LEARNING MANAGER * Telephone Encounter - Haresh Dickerson RN - 11/21/2021 8:42 AM CST Pt calls triage re: identical issue. Clarified with pt he is seeking tramadol q6h, or qid dosing for pain. E LEARNING MANAGER * Telephone Encounter - Anai Hahn RN [...] mg still and will call Clarita back E LEARNING MANAGER * Telephone Encounter - Anai Hahn RN - 11/19/2021 10:35 AM CST Patient called looking for approval on increasing Tramadol dose. Patient is getting it [facility] but needs approval from Dr. Pabon first.Patient is having a lot of joint pain. E LEARNING MANAGER documented in this encounter Plan of Treatment Upcoming Encounters Date Type Department Care Team (Late st Contact Info) Description 11/29/2024 8:30 AM E LEARNING MANAGER Office Visit [facility] - Orthopedic Surgery [address] [facility] [place] [address] Toño Cabrera MD 10[address] [facility] 280 [place] [address] 01/08/2025 8:00 AM CDT Appointment [address] [phone] 01/08/2025 9:00 AM CDT Office Visit [facility] - GI [address] [facility], [place] [address] Amos Pabon MD [facility] [place] [address] documented as of this encounter Goals Goal [...] on filedocumented in this encounter Care Teams Ski Edge Painter Relationship Specialty Start Date End Date Major Kraft MD PCP - General 07/01/21 06/08/22 Eric Oconnell MD Hospitalist 10/10/21 documented as of this encounter
--- OUTSIDE RECORDS SUMMARY | 2024-11-05 08:51 | XMS_ITS | Encounter Summary ---
Author Organization [facility] Address [address] [facility] [place] [address] Care Team Providers Care Customer Service Teller Name Role Phone Major Kraft MD Primary Care Provider + [phone] Eric Oconnell MD Unavailable + [phone] Encounter Details Date Type Department Care Team [...] st Contact Info) Description 11/29/2024 8:30 AM SUBSTANCE ABUSE COUNSELOR Office Visit [facility] - Orthopedic Surgery [address] [facility] [place] [address] Toño Cabrera MD 10[address] [facility] 280 [place] [address] 01/08/2025 8:00 AM CDT Appointment [facility] [address] [place] [address] 01/08/2025 9:00 AM CDT Office Visit [facility] - GI [address] [facility], [place] [address] Amos Pabon MD [facility] [address]L [place] [address] documented as of this encounter Goals Goal [...] on filedocumented in this encounter Care Teams Customer Service Teller Relationship Specialty Start Date End Date Major Kraft MD PCP - General 07/01/21 06/08/22 Eric Oconnell MD Hospitalist 10/10/21 documented as of this encounter
--- OUTSIDE RECORDS SUMMARY | 2024-11-05 08:51 | XMS_ITS | Encounter Summary ---
Author Organization [facility] Address [address] [facility] [place] [address] Care Team Providers Care Marine Design Engineer Name Role Phone Major Kraft MD Primary Care Provider [phone] Eric Oconnell MD Unavailable + [phone] Encounter Details Date Type Department Care Team (Late st Contact Info) Description 12/18/2021 7:27 AM COMPOUNDER [employer]ODUCTS Anesthesia Event [facility] [address] [place] [address] Everardo Villegas MD [address] [place] [address] Alicia Garcia, AGRICULTURAL PRODUCTION ENGINEER-SOFTWARE IMPLEMENTATION PROJECT MANAGER [address] [place] [address] Anesthesia Record Procedure Summary Procedure [...] (H) (12/17/2021) eGFR by CKD-EPI >90 (12/17/2021) OUNDER [employer] documented in this encounter Plan of Treatment Upcoming Encounters Date Type Department Care Team (Late st Contact Info) Description 11/29/2024 8:30 AM COMPOUNDER [employer] Office Visit [facility] - Orthopedic Surgery [address] [place] [address] Toño Cabrera MD 1031 [facility] 280 [place] [address] 01/08/2025 8:00 AM CDT Appointment [facility] [address] [place] [address] 01/08/2025 9:00 AM CDT Office Visit [facility] - GI [address] [facility], [place] [phone] Amos Pabon MD [address] [place] [address] [place] [address] documented as of this encounter Goals Goal [...] on filedocumented in this encounter Care Teams Marine Design Engineer Relationship Specialty Start Date End Date Major Kraft MD PCP - General 07/01/21 06/08/22 Eric Oconnell MD Hospitalist 10/10/21 documented as of this encounter
--- OUTSIDE RECORDS SUMMARY | 2024-11-05 08:51 | XMS_ITS | Encounter Summary ---
Author Organization [facility] Address [address] [facility] [place] [address] Care Team Providers Care Salvage Determiner Name Role Phone Major Kraft MD Primary Care Provider + [phone] Eric Oconnell MD Unavailable + [phone] Reason for Visit * Reason Onset Date Comments Results 02/24/2022 Encounter Details Date Type Department Care Team (Late st Contact Info) Description 02/24/2022 Telephone [facility] - [address] [place] [phone] Sheridan Ng, RN Results Social History Tobacco [...] call. Called and spoke to RN at [facility] and faxed order for labs and medication changes to [phone]. documented in this encounter Plan of Treatment Upcoming Encounters Date Type Department Care Team (Late st Contact Info) Description 11/29/2024 8:30 AM CLASSIFICATION CASE MANAGER Office Visit [facility] - Orthopedic Surgery [address] [place] [address] Toño Cabrera MD 1031 [facility] 280 [place] [address] 01/08/2025 8:00 AM CDT Appointment [facility] [address] [place] [address] 01/08/2025 9:00 AM CDT Office Visit [facility] - GI [address] [place] [address], [place] [address] Amos Pabon MD [address] [place] [address] [place] [address] Scheduled Orders Name Type Priority Associated Diagnoses [...] monitoring documented in this encounter Care Teams Salvage Determiner Relationship Specialty Start Date End Date Major Kraft MD PCP - General 07/01/21 06/08/22 Eric Oconnell MD Hospitalist 10/10/21 documented as of this encounter
--- OUTSIDE RECORDS SUMMARY | 2024-11-05 08:51 | XMS_ITS | Encounter Summary ---
Author Organization [facility] Address [address] [place] [address] Care Team Providers Care Lime Boiler Name Role Phone Major Kraft MD Primary Care Provider [phone] Eric Oconnell MD Unavailable + [phone] Encounter Details Date Type Department Care Team (Latest Contact Info) Description 01/07/2022 9:54 AM CDT - 01/07/2022 11:59 PM CDT Hospital Encounter [facility] 1L [address] [facility] [place] [address] David Burns MD [address] [place], [place] [phone] Discharge Disposition: Home or Self Care Social [...] 11/17/2023 vitamin D, ergocalciferol, (DRISDOL) 1.25 MG (52975 UT) capsule Take 1 (one) capsule by mouth every 7 days for 90 days 4 capsule 2 12/26/2021 03/26/2022 documented as of this encounter Plan of Treatment Upcoming Encounters Date Type Department Care Team (Late st Contact Info) Description 11/29/2024 8:30 AM GOLF BALL TRIMMER Office Visit [facility] - Orthopedic Surgery [address] [place] [address] Toño Cabrera MD 1031 [facility] 280 [place] [address] 01/08/2025 8:00 AM CDT Appointment [facility] [address] [place] [phone] 01/08/2025 9:00 AM CDT Office Visit [facility] [place] [address] [place] [address], [place] [address] Amos Pabon MD [address] [place] [address] [place] [address] documented as of this encounter Goals Goal [...] aftercare documented in this encounter Care Teams Lime Boiler Relationship Specialty Start Date End Date Major Kraft MD PCP - General 07/01/21 06/08/22 Eric Oconnell MD Hospitalist 10/10/21 documented as of this encounter
--- OUTSIDE RECORDS SUMMARY | 2024-11-05 08:51 | XMS_ITS | Encounter Summary ---
Author Organization [facility] Address [address] [place] [address] Care Team Providers Care Dinkey Locomotive Engineer Name Role Phone Major Kraft MD Primary Care Provider [phone] Encounter Details Date Type Department Care Team (Latest Contact Info) Description 10/01/2021 10:36 AM DIRECTOR ON AIR - 10/01/2021 11:59 PM DIRECTOR ON AIR Hospital Encounter [facility] OP DRAW STATION [address] [place] [phone] Discharge Disposition: Home or Self Care Social [...] COVID-19? No / Unsure 10/01/2021 10:22 AM DIRECTOR ON AIR documented as of this encounter Medications at [...] normal. Will need to monitor for now. CTOR ON AIR documented in this encounter Plan of Treatment Upcoming Encounters Date Type Department Care Team (Late st Contact Info) Description 11/29/2024 8:30 AM DIRECTOR ON AIR Office Visit [facility] - Orthopedic Surgery [address] [place] [address] Toño Cabrera MD [address] [address] 01/08/2025 8:00 AM CDT Appointment [facility] 12[address] [place] [address] 01/08/2025 9:00 AM CDT Office Visit [facility] - GI 1225 [facility], [place] [address] Amos Pabon MD 1225 [facility] 2L [place] [address] documented as of this encounter Goals Goal [...] Name Priority Date/Time Associated Diagnosis Comments PT-INR [facility] Routine 10/01/2021 11:38 AM DIRECTOR ON AIR Cirrhosis of liver with ascites, unspecified hepatic cirrhosis type (HCC) TIFFANY BLOOD SCREEN W/REFLEX TITER Routine 10/01/2021 11:38 AM DIRECTOR ON AIR Cirrhosis of liver with ascites, unspecified hepatic cirrhosis type (HCC) ALPHA FETOPROTEIN BLOOD TUMOR MARKER Routine 10/01/2021 11:38 AM DIRECTOR ON AIR Cirrhosis of liver with ascites, unspecified hepatic cirrhosis type (HCC) [id number] BLOOD Routine 10/01/2021 11:38 AM DIRECTOR ON AIR Cirrhosis of liver with ascites, unspecified hepatic cirrhosis type (HCC) CBC W/O DIFFERENTIAL Routine 10/01/2021 11:38 AM DIRECTOR ON AIR Cirrhosis of liver with ascites, unspecified hepatic cirrhosis type (HCC) BASIC METABOLIC PANEL (CALCIUM TOTAL) Routine 10/01/2021 11:38 AM DIRECTOR ON AIR Cirrhosis of liver with ascites, unspecified hepatic cirrhosis type (HCC) HEPATIC FUNCTION PANEL Routine 10/01/2021 11:38 AM DIRECTOR ON AIR Cirrhosis of liver with ascites, unspecified hepatic cirrhosis type (HCC) IRON BLOOD Routine 10/01/2021 11:38 AM DIRECTOR ON AIR Cirrhosis of liver with ascites, unspecified hepatic cirrhosis type (HCC) HEPATITIS B SURFACE ANTIBODY Routine 10/01/2021 11:38 AM DIRECTOR ON AIR Cirrhosis of liver with ascites, unspecified hepatic cirrhosis type (HCC) HEPATITIS B CORE ANTIBODY TOTAL Routine 10/01/2021 11:38 AM DIRECTOR ON AIR Cirrhosis of liver with ascites, unspecified hepatic cirrhosis type (HCC) HEPATITIS B SURFACE ANTIGEN W RFLX CONFIRMATION Routine 10/01/2021 11:38 AM DIRECTOR ON AIR Cirrhosis of liver with ascites, unspecified hepatic cirrhosis type (HCC) IGG BLOOD Routine 10/01/2021 11:38 AM DIRECTOR ON AIR Cirrhosis of liver with ascites, unspecified hepatic cirrhosis type (HCC) HEPATITIS C ANTIBODY Routine 10/01/2021 11:38 AM DIRECTOR ON AIR Cirrhosis of liver with ascites, unspecified hepatic cirrhosis type (HCC) HEPATITIS A ANTIBODY Routine 10/01/2021 11:38 AM DIRECTOR ON AIR Cirrhosis of liver with ascites, unspecified hepatic cirrhosis type (HCC) FERRITIN Routine 10/01/2021 11:38 AM DIRECTOR ON AIR Cirrhosis of liver with ascites, unspecified hepatic cirrhosis type (HCC) documented in this encounter Results * (ABNORMAL) IRON BLOOD (10/01/2021 11:38 AM DIRECTOR ON AIR) Iron 17(L) 50 - 175 ug/dL 10/01/2021 12:55 PM DIRECTOR ON AIR [facility] Blood BLOOD SPECIMEN / Unknown Lab Venipuncture / Unknown 10/01/2021 11:38 AM DIRECTOR ON AIR 10/01/2021 11:46 AM DIRECTOR ON AIR Amos Pabon MD LAB - CHEMISTRY KURT ZARAGOZA Performing Organization Address City/[facility]/ZIP Co de Phone Number [address] [address], [facility] [phone] * (ABNORMAL) IGG BLOOD (10/01/2021 11:38 AM DIRECTOR ON AIR) IgG 2,513(H) 767-1,590 mg/dL 10/01/2021 12:55 PM DIRECTOR ON AIR [facility] Blood BLOOD SPECIMEN / Unknown Lab Venipuncture / Unknown 10/01/2021 11:38 AM DIRECTOR ON AIR 10/01/2021 11:46 AM DIRECTOR ON AIR Amos Pabon MD LAB - CHEMISTRY KURT ZARAGOZA Performing Organization Address City/[facility]/ZIP Co de Phone Number [address] [address], [facility] [phone] * (ABNORMAL) FERRITIN (10/01/2021 11:38 AM DIRECTOR ON AIR) Pathologist [facility] Ferritin 19(L) 22 - 275 ng/mL 10/01/2021 1:14 PM DIRECTOR ON AIR [facility] Blood BLOOD SPECIMEN / Unknown Lab Venipuncture / Unknown 10/01/2021 11:38 AM DIRECTOR ON AIR 10/01/2021 11:46 AM DIRECTOR ON AIR Amos Pabon MD LAB - CHEMISTRY KURT ZARAGOZA Performing Organization Address City/[facility]/ZIP Co de Phone Number [address] [address], [facility] [phone] * TIFFANY BLOOD SCREEN W/REFLEX TITER (10/01/2021 11:38 AM DIRECTOR ON AIR) TIFFANY IgG None Detected None Detected 10/04/2021 12:34 AM DIRECTOR ON AIR [facility] ([facility]) Comment: If suspicion of connective tissue disease is strong and TIFFANY EIA is negative, consider testing for TIFFANY by IFA ([id number]). INTERPRETIVE INFORMATION: Anti-Nuclear Antibodies (TIFFANY), IgG by SAVANNAH Antinuclear Antibodies (TIFFANY), IgG by SAVANNAH: TIFFANY specimens are screened using enzyme-linked immunosorbent assay (SAVANNAH) methodology. All SAVANNAH results reported as Detected are further tested by indirect fluorescent assay (IFA) using HEp-2 substrate with an IgG-specific conjugate. The TIFFANY SAVANNAH screen is designed to detect antibodies against dsDNA, histones, SS-A (Ro), SS-B (La), Clayton, Clayton/JIG AND FIXTURE BUILDER, Scl-70, Nuris-1, centromeric proteins, other antigens extracted from the HEp-2 cell nucleus. TIFFANY SAVANNAH assays have been reported to have lower sensitivities than TIFFANY IFA for systemic autoimmune rheumatic diseases (SARD). Negative results do not necessarily rule out SARD. Performed By: [employer] [address] [place] [address] Rn Advanced: Ivanna Ballard MD Blood BLOOD SPECIMEN / Unknown Lab Venipuncture / Unknown 10/01/2021 11:38 AM DIRECTOR ON AIR 10/01/2021 11:45 AM DIRECTOR ON AIR Amos Pabon MD LAB - CHEMISTRY KURT ZARAGOZA Performing Organization Address City/[facility] Co de Phone Number [facility] ([facility]) [address] [place] [address] * [id number] BLOOD (10/01/2021 11:38 AM DIRECTOR ON AIR) [facility] Oqmvs-5-Pzxgcb ypsin 159 90 - 200 mg/dL 10/01/2021 12:55 PM DIRECTOR ON AIR [facility] Blood BLOOD SPECIMEN / Unknown Lab Venipuncture / Unknown 10/01/2021 11:38 AM DIRECTOR ON AIR 10/01/2021 11:46 AM DIRECTOR ON AIR Amos Pabon MD LAB - CHEMISTRY KURT ZARAGOZA [facility] [address] [place] [address], [facility] [phone] * HEPATITIS C ANTIBODY (10/01/2021 11:38 AM DIRECTOR ON AIR) [facility] Hepatitis C Antibody Non-react young Non-reac tive 10/01/2021 1:14 PM DIRECTOR ON AIR [facility] Comment:Hepatitis C [...] Lab Venipuncture / Unknown 10/01/2021 11:38 AM DIRECTOR ON AIR 10/01/2021 11:46 AM DIRECTOR ON AIR Amos Pabon MD LAB - CHEMISTRY KURT ZARAGOZA Performing Organization Address City/[facility]/ZIP Co de Phone Number [address] [address], [facility] [phone] * HEPATITIS B SURFACE ANTIGEN W RFLX CONFIRMATION (10/01/2021 11:38 AM DIRECTOR ON AIR) Hepatitis B Virus Surface Antigen Non-reacti ve Non-reacti ve 10/01/2021 1:14 PM [facility] Blood BLOOD SPECIMEN / Unknown Lab Venipuncture / Unknown 10/01/2021 11:38 AM DIRECTOR ON AIR 10/01/2021 11:46 AM DIRECTOR ON AIR Amos Pabon MD LAB - CHEMISTRY KURT ZARAGOZA Performing Organization Address [facility] Co de Phone Number [address] [address], [facility] [phone] * (ABNORMAL) HEPATITIS B SURFACE ANTIBODY (10/01/2021 11:38 AM DIRECTOR ON AIR) Hepatitis B Virus Surface Antibody Reactive( A) Non-react young 10/01/2021 1:14 PM [facility] Comment: > 12 mIU/mL Hepatitis B surface Antibody (HBsAb). Reactive for HBsAb - individual is considered immune to Hepatitis B Virus infection. Hepatitis B Surface Antibody Quantitative 50.9(H) <8.0 mIU/mL 10/01/2021 1:14 PM [facility] Comment: Hepatitis B Surface Antibody Numeric Result Interpretation: ? Nonreactive: ?<8.0 mIU/mL ? Indeterminate: ??8.0 - 12.0 mIU/mL ? Reactive: ?>12.0 mIU/mL ? Blood BLOOD SPECIMEN / Unknown Lab Venipuncture / Unknown 10/01/2021 11:38 AM DIRECTOR ON AIR 10/01/2021 11:46 AM DIRECTOR ON AIR Amos Pabon MD LAB - CHEMISTRY KURT ZARAGOZA Performing Organization Address City/[facility]/ZIP Co de Phone Number [address] [address], [facility] [phone] * HEPATITIS B CORE ANTIBODY (10/01/2021 11:38 AM DIRECTOR ON AIR) HBc Antibody Total Non-reacti ve Non-reacti ve 10/01/2021 1:14 PM DIRECTOR ON AIR [facility] Blood BLOOD SPECIMEN / Unknown Lab Venipuncture / Unknown 10/01/2021 11:38 AM DIRECTOR ON AIR 10/01/2021 11:46 AM DIRECTOR ON AIR Amos Pabon MD LAB - CHEMISTRY KURT ZARAGOZA Performing Organization Address [facility] Co de Phone Number [address] [address], [place] [phone] * (ABNORMAL) HEPATITIS A ANTIBODY (10/01/2021 11:38 AM DIRECTOR ON AIR) Hepatitis A Virus Antibody Total Positive( A) Negative 10/03/2021 5:38 PM DIRECTOR ON AIR [facility] ([facility]) Comment: The positive anti-HAV is consistent with recent or remote Hepatitis A infection or antibody response to HAV vaccination. False positive anti-HAV can occur. Performed by [facility], [address] [place] [id number] [email or web address], Ivanna Ballard MD, Lab. Director Blood BLOOD SPECIMEN / Unknown Lab Venipuncture / Unknown 10/01/2021 11:38 AM DIRECTOR ON AIR 10/01/2021 11:45 AM DIRECTOR ON AIR Amos Pabon MD LAB - CHEMISTRY ORDSukhjinder ZARAGOZA [facility] ([facility]) [address] * (ABNORMAL) PT-INR [facility] (10/01/2021 11:38 AM DIRECTOR ON AIR) PT 15.5(H) 12.1 - 14.8 Seconds 10/01/2021 12:07 PM [facility] INR 1.2 See Comment 10/01/2021 12:07 PM [facility] Comment:The suggested therap eutic range for standard coumadin (warfarin) therapy is an INR of 2.0-3.0. For high-risk patients (Mechanical Mitral Valve Prosthesis, etc.), the suggested prophylactic therapeutic range is an INR of 2.5-3.5. Blood BLOOD SPECIMEN / Unknown Lab Venipuncture / Unknown 10/01/2021 11:38 AM DIRECTOR ON AIR 10/01/2021 11:46 AM DIRECTOR ON AIR Amos Pabon MD LAB - COAGULATION OR DERABLES [facility] [address] [place] [address], [facility] [phone] * (ABNORMAL) HEPATIC FUNCTION PANEL (10/01/2021 11:38 AM DIRECTOR ON AIR) Protein Total 8.6(H) 6.0 - 8.3 g/dL 021 12:16 PM [facility] Albumin 3.3(L) 3.4 - 5.0 g/dL 10/01/2021 12:16 PM [facility] Bilirubin Total 0.6 0.2 - 1.2 mg/dL 05/2021 12:16 PM [facility] Bilirubin Conjugated 0.2 0.1 - 0.5 mg/dL 10/01/2021 12:16 PM [facility] Bilirubin Unconjugated 0.4 Unconjugated Bilirubin is a calculated value: Reference ranges have not been established. mg/dL 10/01/2021 12:16 PM [facility] Alkaline Phosphatase 134 40 - 150 U/L 10/01/2021 12:16 PM [facility] ALT 24 5 - 55 U/L 10/01/2021 12:16 PM [facility] AST 34 5 - 34 U/L 10/01/2021 12:16 PM [facility] Albumin/Globulin Ratio 0.6(L) 1.1 - 2.3 10/01/2021 12:16 PM [facility] Blood BLOOD SPECIMEN / Unknown Lab Venipuncture / Unknown 10/01/2021 11:38 AM DIRECTOR ON AIR 10/01/2021 11:46 AM DIRECTOR ON AIR Amos Pabon MD LAB - CHEMISTRY KURT ZARAGOZA [facility] [address] [place] [address], [facility] [phone] * (ABNORMAL) BASIC METABOLIC PANEL (CALCIUM TOTAL) (10/01/2021 11:38 AM DIRECTOR ON AIR) BUN 10 7 - 26 mg/dL 10/01/2021 12:16 PM [facility] Creatinine 0.67(L) 0.71 - 1.16 mg/dL 10/01/2021 12:16 PM [facility] Sodium 136 136 - 145 mmol/L 10/01/2021 12:16 PM [facility] Potassium 3.8 3.5 - 4.5 mmol/L 10/01/2021 12:16 PM [facility] Chloride 105 98 - 107 mmol/L 10/01/2021 12:16 PM [facility] CO2 23 22 - 29 mmol/L 10/01/2021 12:16 PM [facility] Glucose 111 70 - 115 mg/dL 10/01/2021 12:16 PM [facility] Calcium 9.1 8.4 - 10.2 mg/dL 10/01/2021 12:16 PM [facility] Anion Gap 12 - 18 10/01/2021 12:16 PM [facility] BUN/Creatinine Ratio 15 7 - 23 10/01/2021 12:16 PM [facility] Osmolality Calculated 282 270 - 300 mOsm/kg 10/01/2021 12:16 PM [facility] eGFR by CKD-EPI >90 >=90 mL/min/1.7 3 m2 10/01/2021 12:16 PM [facility] Blood BLOOD SPECIMEN / Unknown Lab Venipuncture / Unknown 10/01/2021 11:38 AM DIRECTOR ON AIR 10/01/2021 11:46 AM DIRECTOR ON AIR Amos Pabon MD LAB - CHEMISTRY KURT Cid Organization Address City/State/ZIP Co de Phone Number [facility] [address] [place] [address], [facility] [phone] * (ABNORMAL) CBC W/O DIFFERENTIAL (10/01/2021 11:38 AM DIRECTOR ON AIR) WBC 4.3 3.5 - 10.5 10? 3 /uL 10/01/2021 12:06 PM [facility] RBC 3.52(L) 4.30 - 5.70 10? 6 /uL 10/01/2021 12:06 PM [facility] Hemoglobin 9.8(L) 12.0 - 17.6 g/dL 10/01/2021 12:06 PM [facility] Hematocrit 31.0(L) 35.2 - 51.7 % 10/01/2021 12:06 PM [facility] MCV 88.1 80.7 - 98.3 fL 10/01/2021 12:06 PM [facility] MCH 27.8 26.7 - 34.0 pg 10/01/2021 12:06 PM [facility] MCHC 31.6 30.8 - 35.9 g/dL 10/01/2021 12:06 PM [facility] Platelet Count 209 150 - 400 10? 3 /uL 10/01/2021 12:06 PM [facility] RDW-SD 51.8(H) 36.0 - 50.0 fL 10/01/2021 12:06 PM [facility] RDW-CV 15.9(H) 11.2 - 14.8 % 10/01/2021 12:06 PM [facility] MPV 9.2(L) 9.4 - 12.9 fL 10/01/2021 12:06 PM [facility] nRBC Absolute 0.00 0 10? 3 /uL 10/01/2021 12:06 PM [facility] nRBC Auto 0.0 0 /100 WBC 10/01/2021 12:06 PM [facility] Blood BLOOD SPECIMEN / Unknown Lab Venipuncture / Unknown 10/01/2021 11:38 AM DIRECTOR ON AIR 10/01/2021 11:51 AM DIRECTOR ON AIR Amos Pabon MD LAB - HEMATOLOGY ORD ERABLES [address] [address], [place] [phone] * ALPHA FETOPROTEIN BLOOD TUMOR MARKER (10/01/2021 11:38 AM DIRECTOR ON AIR) Alpha-Fetoprote in Tumor Marker 2.6 <=8.3 ng/mL 10/01/2021 12:35 PM [facility] Comment: AFP values will vary depending on testing procedure used. Results are not comparable across different methods. AFP values obtained by [facility] using an Jenkins Alinity Immunoassay. Blood BLOOD SPECIMEN / Unknown Lab Venipuncture / Unknown 10/01/2021 11:38 AM DIRECTOR ON AIR 10/01/2021 11:51 AM DIRECTOR ON AIR Amos Pabon MD LAB - CHEMISTRY ORDE RABLES [address] [address], [place] [phone] documented in this encounter Visit Diagnoses Diagnosis Cirrhosis of liver with ascites, unspecified hepatic cirrhosis type (HCC) documented in this encounter Care Teams Dinkey Locomotive Engineer Relationship Specialty Start Date End Date Major Kraft MD PCP - General 07/01/21 06/08/22 documented as of this encounter
--- OUTSIDE RECORDS SUMMARY | 2024-11-05 08:51 | XMS_ITS | Encounter Summary ---
Author Organization [facility] Address [address] [facility] [place] [address] Care Team Providers Care Radiologic Electronic Specialist Name Role Phone Major Kraft MD Primary Care Provider [phone] Eric Oconnell MD Unavailable + [phone] Raya Carty PA-C Primary Care Provider Major Kraft MD Primary Care Provider + [phone] Gregorio James MD Primary Care Provider [phone] Reason for Visit * Reason Onset Date Comments Physical Therapy 01/29/2022 Encounter Details Date Type Department Care Team (Late st Contact Info) Description 01/29/2022 Telephone [facility] [address] [place], [place] [phone] Toño Cabrera MD [address] [phone] Physical Therapy Social History Tobacco Use Types [...] encounter Miscellaneous Notes * Telephone Encounter - Nadien Bennett MA - 01/29/2022 3:29 PM CDT Patient requesting a call back from Dr. Cabrera's staff. Patient stated that he left a message on nurse Joel's phone, I informed him that she was out of the office week. Patient also gave another call back number [phone] [facility]. He stated that it had something to do with physical therapy and insurance. Please advise. documented in this encounter Plan of Treatment Upcoming Encounters Date Type Department Care Team (Late st Contact Info) Description 11/29/2024 8:30 AM GROUND SUPPORT EQUIPMENT FITTER Office Visit [facility] - Orthopedic Surgery [address] [place] [address] Toño Cabrera MD 10[address] [facility] [address] [place] [address] 01/08/2025 8:00 AM CDT Appointment [place] [phone] 01/08/2025 9:00 AM CDT Office Visit [facility] - GI 1225 [facility], [place] [address] Amos Pabon MD 1225 [facility] 2L [place] [address] documented as of this encounter Goals Goal [...] on filedocumented in this encounter Care Teams Radiologic Electronic Specialist Relationship Specialty Start Date End Date Major Kraft MD PCP - General 07/01/21 06/08/22 Raya Carty PA-C [address] [place] [phone] PCP - General 06/09/22 07/05/22 Major Kraft MD PCP - General 07/06/22 08/10/22 Gregorio James MD [address] [place] [phone] PCP - General 08/11/22 05/16/24 Eric Oconnell MD Hospitalist 10/10/21 documented as of this encounter
--- OUTSIDE RECORDS SUMMARY | 2024-11-05 08:51 | XMS_ITS | Encounter Summary ---
Author Organization [facility] Address [address] [place] [address] Care Team Providers Care Trim Die Maker Name Role Phone Major Kraft MD Primary Care Provider + [phone] Eric Oconnell MD Unavailable + [phone] Encounter Details Date Type Department Care Team ([facility] Contact Info) Description 10/16/2021 Orders Only [facility] - [place] [address] [place] [address], [place] [phone] Amos Pabon MD [address] [place] [address] OF GASTROENTEROLOGY [place], [place] [id number] Social History Tobacco Use Types Packs/Day Years [...] COVID-19? No / Unsure 10/01/2021 10:22 AM DEHYDRATOR OPERATOR documented as of this encounter Plan of Treatment Upcoming Encounters Date Type Department Care Team ([facility] Contact Info) Description 11/29/2024 8:30 AM DEHYDRATOR OPERATOR [facility] [place] [address] Toño Cabrera MD [address] [place] [address] 01/08/2025 8:00 AM CDT Appointment [facility] [address]01 [place] [address] 01/08/2025 9:00 AM CDT Office Visit [facility] - GI [address] [facility], [place] [address] Amos Pabon MD [address] [facility] 2L [place] [address] documented as of this encounter Goals Goal [...] on filedocumented in this encounter Care Teams Trim Die Maker Relationship Specialty Start Date End Date Major Kraft MD PCP - General 07/01/21 06/08/22 Eric Oconnell MD Hospitalist 10/10/21 documented as of this encounter
--- OUTSIDE RECORDS SUMMARY | 2024-11-05 08:51 | XMS_ITS | Encounter Summary ---
Author Organization [facility] Address [address] [facility] [place] [address] Care Team Providers Care Warehouse Forklift Operator Name Role Phone Major Kraft MD Primary Care Provider + [phone] Eric Oconnell MD Unavailable + [phone] Reason for Visit * Reason Onset Date Comments Med Question 11/21/2021 Encounter Details Date Type Department Care Team (Late st Contact Info) Description 11/21/2021 Telephone [facility] - [address] [facility], [place] [address] Poppy Newsome, ALFREDO Med Question Social History [...] conversation with following message to the patients fpc and pharmacy: I apologize for the confusion regarding patients pain medication. Dr. Pabon is not the prescribing physician for Tramadol so we can not fax a script for Tramadol. Our understanding is that the patients doctor at the fpc was seeking approval for 50 mg every 6 hours as needed for pain. Patient can have this per liver MD but we are not prescribing for chronic pain. Patient will need pain management/PCP direction if needing more direction for chronic pain. STER REPAIRER * Telephone Encounter - Poppy Newsome RN - 11/21/2021 11:41 AM REGISTER REPAIRER Patient called again in regards to Tramadol order. RN spoke with patient and DON at facility.We fill fax over the note from Dr. Pabon. RN advised patient, and RN at the facility, that we will not be prescribing the medicine, but it is ok for the patient to take Tramadol. Patient verbalized understanding. STER REPAIRER documented in this encounter Plan of Treatment Upcoming Encounters Date Type Department Care Team (Late st Contact Info) Description 11/29/2024 8:30 AM REGISTER REPAIRER Office Visit [facility] - Orthopedic Surgery [address] [place] [address] Toño Cabrera MD 1031 [facility] 280 [place] [address] 01/08/2025 8:00 AM CDT Appointment [facility] [address] [place] [address] 01/08/2025 9:00 AM CDT Office Visit [facility] - GI [address] [facility], [place] [address] Amos Pabon MD [address] [place] [address] [place] [address] documented as of this encounter Goals Goal [...] on filedocumented in this encounter Care Teams Warehouse Forklift Operator Relationship Specialty Start Date End Date Major Kraft MD PCP - General 07/01/21 06/08/22 Eric Oconnell MD Hospitalist 10/10/21 documented as of this encounter
--- OUTSIDE RECORDS SUMMARY | 2024-11-05 08:51 | XMS_ITS | Encounter Summary ---
Author Organization [facility] Address [address] [place] [address] Care Team Providers Care Cytology Laboratory Manager Name Role Phone Major Kraft MD Primary Care Provider [phone] Eric Oconnell MD Unavailable + [phone] Reason for Visit * Reason Onset Date Comments Med Question 12/22/2021 Encounter Details Date Type Department Care Team (Late st Contact Info) Description 12/22/2021 Telephone [facility] - Orthopedics [address] [place] [address] David Burns MD [address] [place] [address] Med Question Social History Tobacco [...] not helping him. He is in a Jail Facility. [facility] [phone] LER TENDER documented in this encounter Plan of Treatment Upcoming Encounters Date Type Department Care Team (Late st Contact Info) Description 11/29/2024 8:30 AM CHILLER TENDER Office Visit [facility] - Orthopedic Surgery [address] [place] [address] Toño Cabrera MD [address] [place] [address] [place] [address] 01/08/2025 8:00 AM CDT Appointment [facility] [address] [place] [address] 01/08/2025 9:00 AM CDT Office Visit [facility] - GI [address] [place] [address], [place] [address] Amos Pabon MD [address] [place] [address] [place] [address] documented as of this encounter Goals Goal [...] on filedocumented in this encounter Care Teams Cytology Laboratory Manager Relationship Specialty Start Date End Date Major Kraft MD PCP - General 07/01/21 06/08/22 Eric Oconnell MD Hospitalist 10/10/21 documented as of this encounter
--- OUTSIDE RECORDS SUMMARY | 2024-11-05 08:51 | XMS_ITS | Encounter Summary ---
Author Organization [facility] Address [address] [facility] [place] [address] Care Team Providers Care Physician Assistant Psychiatry Name Role Phone Major Kraft MD Primary Care Provider + [phone] Eric Oconnell MD Unavailable + [phone] Encounter Details Date Type Department Care Team (Late st Contact Info) Description 01/30/2022 Orders Only [facility] [address] [place] [address] Mila Clemons, RN Post-traumatic osteoarthritis of left [...] st Contact Info) Description 11/29/2024 8:30 AM BLINDMAKER Office Visit [facility] - Orthopedic Surgery [address] [facility] [place] [address] Toño Cabrera MD [address] [facility] 280 [place] [address] 01/08/2025 8:00 AM CDT Appointment [facility] [address] [place] [address] 01/08/2025 9:00 AM CDT Office Visit [facility] - GI [address] [facility], [place] [address] Amos Pabon MD [address] [place] [address] [place] [address] documented as of this encounter Goals Goal [...] thigh documented in this encounter Care Teams Physician Assistant Psychiatry Relationship Specialty Start Date End Date Major Kraft MD PCP - General 07/01/21 06/08/22 Eric Oconnell MD Hospitalist 10/10/21 documented as of this encounter
--- OUTSIDE RECORDS SUMMARY | 2024-11-05 08:51 | XMS_ITS | Encounter Summary ---
Author Organization [facility] Address [address] [facility] [place] [address] Care Team Providers Care Registration Representative Name Role Phone Major Kraft MD Primary Care Provider [phone] Eric Oconnell MD Unavailable + [phone] Reason for Visit * Reason Comments Follow-up Encounter Details Date Type Department Care Team (Late st Contact Info) Description 02/24/2022 Telephone [facility] - Nephrology [address] [place] [address], [place] [address] Amos Pabon MD [address] [place] [address] OF GASTROENTEROLOGY [place], [place] [id number] Follow-up Social History Tobacco Use Types Packs/Day [...] Previously called and spoke with RN at [facility] as per previous note. Also faxed recommendations to the facility. Patient can call if any issues/swelling arise. documented in this encounter Plan of Treatment Upcoming Encounters Date Type Department Care Team (Late st Contact Info) Description 11/29/2024 8:30 AM AOC DIRECTOR COMBAT PLANS OFFICER Office Visit [facility] - Orthopedic Surgery [address] [place] [address] Toño Cabrera MD 1031 [facility] 280 [place] [address] 01/08/2025 8:00 AM CDT Appointment [facility] 1201 [place] [address] 01/08/2025 9:00 AM CDT Office Visit [facility] - GI [address] [facility], [place] [address] Amos Pabon MD [address] [facility] 2L [place] [address] documented as of this encounter Goals Goal [...] on filedocumented in this encounter Care Teams Registration Representative Relationship Specialty Start Date End Date Major Kraft MD PCP - General 07/01/21 06/08/22 Eric Oconnell MD Hospitalist 10/10/21 documented as of this encounter
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
--- OUTSIDE RECORDS SUMMARY | 2024-11-05 08:51 | XMS_ITS | Encounter Summary ---
Author Organization [facility] Address [address] [facility] [place] [address] Care Team Providers Care Chamfering Machine Operator Name Role Phone Major Kraft MD Primary Care Provider + [phone] Eric Oconnell MD Unavailable + [phone] Reason for Visit * Reason Onset Date Comments Pre-op Instructions 02/16/2022 Encounter Details Date Type Department Care Team (Late st Contact Info) Description 02/16/2022 Patient Outreach [facility] ENDOSCOPY [address] [place] [address] Sheridan Dorman RN Pre-op Instructions Social History [...] provides that main number at facility is [phone] Faxed info to Patient: Lukas Diaz 83 [...] are on it. -You MUST have a charter bus driver to drive you home. (You can NOT take a bus, cab, LYFT or UBER) -You will be at our facility from start to finish (registration, pre op, procedure, recovery) for approximately 4 hours total. -Your procedure will be in our [facility]. The new address will be at [address] [place] [address]. [address] to the new parking garage. -Come in on the ORANGE elevators of the parking garage. Endoscopy is on the LEVEL 1 of the hospital[facility] -Please bring a current list of your medications -Main endoscopy department number is [phone] Prior to arrival, we will need to be aware of any recent COVID exposures or symptoms. Masks are required while in the hospital documented in this encounter Plan of Treatment Upcoming Encounters Date Type Department Care Team (Late st Contact Info) Description 11/29/2024 8:30 AM AUTO BODY ESTIMATOR Office Visit [facility] - Orthopedic Surgery [address] [place] [address] Toño Cabrera MD 1031 [facility] 280 [place] [address] 01/08/2025 8:00 AM CDT Appointment [facility] [address] [place] [address] 01/08/2025 9:00 AM CDT Office Visit [facility] - GI [address] [facility], [place] [address] Amos Pabon MD [address] [place] [address] [place] [address] documented as of this encounter Goals Goal [...] on filedocumented in this encounter Care Teams Chamfering Machine Operator Relationship Specialty Start Date End Date Major Kraft MD PCP - General 07/01/21 06/08/22 Eric Oconnell MD Hospitalist 10/10/21 documented as of this encounter
--- OUTSIDE RECORDS SUMMARY | 2024-11-05 08:51 | XMS_ITS | Encounter Summary ---
Author Organization [facility] Address [address] [place] [address] Care Team Providers Care Patient Monitor Name Role Phone Major Kraft MD Primary Care Provider + [phone] Eric Oconnell MD Unavailable + [phone] Reason for Visit * Reason Comments Lower [...] Expiration Date Visits Re quested Visits Authorized [id number] 1 1 Encounter Details Date Type Department Care Team (Late st Contact Info) Description 12/17/2021 10:25 PM SKEIN WASHER - 12/20/2021 5:58 PM SKEIN WASHER Hospital Encounter [facility] SHORT STAY UNIT [address] [place] [phone] Lima Thompson MD [address] [place] [address] David Burns MD [address] [place] [address] Karsten Waddell DO [address] [facility] [address] [place] [phone] Surgery Orthopedics Discharge Disposition: Fpc Facility Social History Tobacco Use Types Packs/Day [...] Comments Blood Pressure 135/102 12/20/2021 7:46 AM SKEIN WASHER Pulse 102 12/20/2021 7:46 AM SKEIN WASHER Temperature 36.7 ??C (98.1 ??F) 12/20/2021 7:46 AM CS T Respiratory Rate 20 12/20/2021 7:46 AM SKEIN WASHER Oxygen Saturation 96% 12/20/2021 7:46 AM SKEIN WASHER Inhaled Oxygen Concentration - - Weight 72.6 kg (160 lb) 12/17/2021 10:42 PM SKEIN WASHER Height 170.2 cm (5' 7 ) 12/17/2021 10:42 PM SKEIN WASHER Body Mass Index 25.06 12/17/2021 10:42 PM SKEIN WASHER documented in this encounter Functional Status Functional [...] noted. Dictated by Stanley Joyce MD (residential sales rep). Dr. ALO Anton MD, [facility] havepersonally reviewed and interpreted this examination/study. This report was electronically signed by ALO VAZQUEZ MD, [facility] on 12/18/2021 10:[address] HIP [...] Report dictated by Shama Landry M.D. (residential sales rep). I, Dr. ALO VAZQUEZ MD, [facility] have personally reviewed and interpreted this examination/study. This report was electronically signed by ALO VAZQUEZ MD, [facility] on 12/18/2021 10:05 AM . 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 -Keep your scheduled follow up with your liver physician and primary care providers Orthopaedic Surgery follow up appointment for your left leg/hip with Dr. David Burns is scheduledon 12/31/2021 at 11:15am [facility], Level I-Orthopaedic Surgery [address] [place] [address] -You are weight bearing as tolerated to your left leg/foot when up -You may shower -No activity restrictions -For after hours orthopaedic emergency calls dial [phone] and page the orthopaedic surgery resident candle extrusion machine operator -Do not smoke cigarettes, vape, chew tobacco or use any nicotine products. Nicotine in any form will delay and can prevent healing. Patient Education Cigarette Smoking and Your Health PUBLICIST: Risks to your health if you smoke: [...] visits. For support and more information: ?? [place] [address] [facility] , [place] Phone: Phone: Web Address: www.lung.org ?? Smokefree.gov Phone: Web Address: www.[place].gov ?? Copyright [employer] 2020 Information is for End User's use only and may not be sold, redistributed or otherwise used for commercial purposes. All illustrations and images included in CareNotes?? are the copyrighted property of [employer]. or [employer] The above information is an ed educational aide only. It is not intended as [...] with vitamin D. ?? Give your breastfed infant a vitamin D supplement of 400 IU [...] refuse treatment. The above information is an ed educational aide only. It is not intended as medical advice for individual conditions or treatments. Talk to your doctor, nurse or pharmacist before following any medical regimen to see if it is safe and effective for you. ?? Copyright [employer] 2020 Information is for End User's use only and may not be sold, redistributed or otherwise used for commercial purposes. All illustrations and images included in CareNotes?? are the copyrighted property of A.D.A.M., Inc. or [employer] Patient Education Hip Pain WHAT YOU NEED [...] refuse treatment. The above information is an ed educational aide only. It is not intended as medical advice for individual conditions or treatments. Talk to your doctor, nurse or pharmacist before following any medical regimen to see if it is safe and effective for you. ?? Copyright [employer] 2020 Information is for End User's use only and may not be sold, redistributed or otherwise used for commercial purposes. All illustrations and images included in CareNotes?? are the copyrighted property of A.D.A.M., Inc. or [employer] N WASHER documented in this encounter Medications at Time [...] 11/17/2023 vitamin D, ergocalciferol, (DRISDOL) 1.25 MG (15944 UT) capsule Take 1 (one) capsule by mouth every 7 days for 90 days 4 capsule 2 12/26/2021 03/26/2022 documented as of this encounter Progress Notes * Roxana Lancaster RN - 12/20/2021 2:55 PM CST Report called to [place] N WASHER * Gail Miller RN - 12/20/2021 9:04 AM CST Facility Transfer Note Level of Care: SNF Facility Name: (include name of person confirming admission): [facility] Made Aware of Special Needs (if applicable): RN Call Report to:[phone] Fax D/C Orders to:[phone] Transportation (company and number): [employer] [phone] Certificate of Medical Necessity rationale: Yes Date/time of transfer: 12-20 Accepting MD and contact #: Completed and Signed [id number] (if applicable): Family/Other Notified of Transfer (name/phone): Authorization Skilled Care: Authorization for Transportation: Verified Qualifying Stay(Skilled Only): NOT APPLICABLE Comments: Name/Phone number: Gail Miller RN [phone] N WASHER * Gail Miller RN - 12/19/2021 3:19 PM CST [facility] Details Fax ? Service Provider Info: Edit [address] [facility] [address] CM phoned Ericka [phone] Left message with callback information Anticipate discharge 12-20 Gail Miller RN [phone] Care Coordination Nurse Set Designer N WASHER * Roxana Lancaster RN - 12/19/2021 2:53 PM CST Pt back to bed resting quietly N WASHER * Maria D Jiménez OT - 12/19/2021 1:46 PM CST [facility] Physical Medicine and Rehabilitation Occupational Therapy Progress Note Patient: Lukas Diaz Med Record Number: [id number] Date of : 1985 Age: [age] year [...] Education: good, safety education and adaptive equipment Sorority Supervisor Goal:Patient to discharge to appropriate next level of inpatient care If patient is discharged from the facility, this note serves as a discharge note if further occupational therapy visits did not occur. Following therapy session, patient left in bed, with bed alarm on, with call light within reach andwith Nahed FUENTES aware. N WASHER * Roxana Lancaster RN - 12/19/2021 1:10 PM CST Pt up in chair . Medicated for pain N WASHER * Marleny Vasquez, PT - 12/19/2021 11:48 AM CST [facility] Physical Medicine and Rehabilitation PhysicalTherapy Progress Note Patient: Lukas Diaz [facility] Record Number: [id number] Date of : 1985 Age: [age] year old Face Mask: Therapist wore procedural mask and eye protection during entire treatment session. Discharge Recommendation: Patient will benefit from multidisciplinary inpatient therapies (return to previous longterm) Subjective: It hurts eveywhere Mental Status: Alert [...] with Stand By Assist and appropriate AD Half-Way Goal: Patient to discharge to appropriate next [...] light within reach and with RNKandy aware. N WASHER * Colleen Mosqueda RN - 12/19/2021 10:30 AM CST Clarita Biggs, Die Cutter and myself at bedside to discuss missing belongings. Patient states he was contacted by [facility] and they state they have his laptop and wallet. Per patient, his father will shrimp picker these items. N WASHER * Marc Gamble MD - 12/19/2021 7:00 [...] - Date/Time SARS-COV-2 (COVID-19)+INFLU A+B PCR RAPID [[id number]] (Normal) Collected: 12/18/21416 Lab Status: Final result [...] acid amplification assay performance was validated by [facility]. This test has been authorized [...] please page with questions. DO NOT USE [employer] Secure Chat. Marc Gamble MD 12/19/2021 7:05 AM N WASHER * Colleen Mosqueda RN - 12/18/2021 3:49 PM CST Unable to locate patient's wallet and laptop upon transfer. Belongings were locked in locker but locker not identified in charting. Some of his belongings made it to bedside. Used to lee to look in all lockers, remaining items not found. Contacted pre/post to inquire about belongings. Pre/post willcontact RN that surveyed his belongings. N WASHER * Radha Lutz, PharmD - 12/18/2021 12:[address] [facility] Pharmacy Medication History Note The current home/prior to admission (APARTMENT COMMUNITY MANAGER) medication list has been reviewed by a pharmacist. Outpatient medications were clarified with pre-packed medication cards from [facility]. Please note all medications may NOT have [...] please do not hesitate to contact the [facility] pharmacy dept ([phone]). Thank you. Assessment Completed by: Radha Lutz PharmD 12/18/2021 12:46 PM N WASHER * Gail Miller RN - 12/18/2021 11:20 [...] liver failure Pt had recently discharged from [facility] 12-16. Pt would like to return if able. Referral to Transportation (who): Pending discharge disposition Director Of Critical Care/Support: Family and friends Director Of Critical Care person: Home/Functional Status: Functional and Cognitive Status [...] follow. For any questions or needs please [phone] contact: Set Designer Name/Phone number: Gail Miller RN' N WASHER * Maria D Jiménez OT - 12/18/2021 11:17 AM CST [facility] Physical Medicine and Rehabilitation Occupational Therapy Initial Evaluation Note Co-eval with PT 2/2 unknown level of assist Patient: Lukas Diaz [facility] Record Number: [id number] Date of : 1985 Age: [age] year [...] feel it. PATIENT GOALS: Return to previous longterm Home living: Type of Residence: Skilled Nursing Home Structure: One Story Primary Bedroom: First [...] Education: good, safety education and adaptive equipment Half-Way Goal: Patient to discharge to appropriate next level of inpatient care If patient is discharged from the facility, this note serves as a discharge summary if further occupational therapy visits did not occur. Following therapy session, patient left in bed, with bed alarm on, with call light within reach andwith RNSangeetha aware. N WASHER * Marleny Vasquez, PT - 12/18/2021 11:17 AM CST [facility] Physical Medicine and Rehabilitation Physical Therapy Initial Evaluation Note Patient: Lukas Diaz Med Record Number: [id number] Date of : 1985 Age: [age] year [...] just hurts PATIENT GOALS: Return to previous longterm Home living: Type of Residence: Skilled Nursing Home Structure: One Story Primary Bedroom: First [...] with Stand By Assist and appropriate AD Half-Way Goal(s): Patient to discharge to appropriate next level of inpatient care Equipment Issued: gait belt Plan: If patient is discharged from the facility, this note serves as a discharge summary if further physical therapy visits did not occur. Following therapy session, patient left in bed, with bed alarm on, with call light within reach andwith Sangeetha FUENTES N WASHER * Kaila Pham RN - 12/18/2021 8:30 AM CST Report given to RN. All questions answered. N WASHER * Kaila Pham RN - 12/18/2021 7:53 AM CST Pt surgery cancelled. VSS. Pt being admitted to [facility]. Report will be called to RN N WASHER documented in this encounter H&P Notes * Geremias Tomas MD - 12/18/2021 1:00 AM CST Orthopaedic Surgery H&P Note Lukas Diaz 1985 [id number] Date of service: 12/18/2021 Chief Complaint: Chief [...] PMH of alcoholic cirrhosis who presents to [facility] Emergency Department with ortho complaint of left [...] patient. Geremias Tomas MD 12/18/2021 4:19 AM N WASHER Associated attestation - Karsten Waddell DO - 12/18/2021 7:36 AM SKEIN WASHER Attending Physician Supervisory Note I personally interviewed [...] this encounter Consult Notes * Michael Ordonez, PATTERN CLEANER - 12/18/2021 2:01 PM CSTAssociated Order(s): IP CONSULT TO LAWN TECHNICIAN New Facility Placement Referral source: PT/OT Date of referral:12/18/2021 Admitted from: Home, was previously at [facility] Special Needs: Patient Goal (short term and custodial): Short term Level of Care (SNF/Medicaid NH/Rehab/Sorority Supervisor Care/LTACH): SNF Spoke with (Phone number, if not patient. Family participation encouraged): Pt at bedside Family Contacted: No List of facilities provided (within patient geographic preference): Yes Referrals initiated: Continued Care and Services - Admitted Since 12/17/2021 Destination Service Provider Request Status Selected Services Address Phone Fax Patient Preferred [facility] Pending - Request Sent N/A [address] [facility] [address] [phone] -- [facility] [place] Pending - Request Sent N/A [address] [facility] [address] [phone] -- [facility] Pending - Request Sent N/A [address] [facility] [address] -- monitoring facility responses Comments: [...] declined referrals/placement Intervention/Follow-up: No MARY Pisano 12/18/2021 N WASHER documented in this encounter ED Notes * Amaris Cid RN - 12/18/2021 6:18 AM CST Report given to Kaila. N WASHER * Lima Thompson MD - 12/17/2021 10:39 PM CST ED Attending Note Interval History: Lukas Diaz is a 36 year old male with PMHx of polysubstance abuse, alcoholic cirrhosis, portal hypertension, and esophageal varices who is presenting to the ED as [facility] for[facility] hip fracture. Patient initially seen [...] Ethanol Interp <10: None Detected. Depression of FIRE BEHAVIOR ANALYST: >100 mg/dl Potentially Critical: >250 mg/dl Potentially [...] mg (4 mg Intravenous $ Given 12/17/21 1385) ondansetron (Zofran) injection 4 mg (4 mg Intravenous $ Given 12/17/21 7476) Clinical Impression: 1. Closed fracture of left [...] complete. Signed: Dr. Thompson. 12/18/2021. 5:52 AM. N WASHER * Carolina Menchaca, RN - 12/17/2021 10:28 PM CST bibems as transfer from OSH for left hip fracture. Per EMS leg is shortened, externally rotated. Ptbelieves he fell several days ago but doesn't remember falling. EMS reports hx drug and alcohol abuse, cirrhosis, liver failure. AOx4 on arrival, report 9/10 pain N WASHER documented in this encounter Plan of Treatment Upcoming Encounters Date Type Department Care Team (Late st Contact Info) Description 11/29/2024 8:30 AM SKEIN WASHER Office Visit [facility] - Orthopedic Surgery [address] [place] [address] Toño Cabrera MD [address] [facility] [address] [place] [address] 01/08/2025 8:00 AM CDT Appointment [facility] [address] [place] [phone] 01/08/2025 9:00 AM CDT Office Visit [facility] - [address] [facility] [place] [phone] Amos Pabon MD [address] [place] [address] [address] [place] [address] documented as of this encounter Goals Goal [...] W/O DIFFERENTIAL AM Draw 12/19/2021 1:53 AM SKEIN WASHER VITAMIN D 25-HYDROXY AM Draw 12/19/2021 1:35 AM SKEIN WASHER COMPREHENSIVE METABOLIC PANEL AM Draw 12/19/2021 1:[address] HIP LEFT WO CONTRAST STAT 12/18/2021 6:44 AM SKEIN WASHER Closed fracture of left hip, initial encounter (HCC) URINE DRUG SCREEN IMMUNOASSAY STAT 12/18/2021 4:57 AM SKEIN WASHER BLOOD TYPE VERIFICATION STAT 12/18/2021 4:44 AM SKEIN WASHER SARS-COV-2 (COVID-19)+INFLU A+B PCR RAPID STAT 12/18/2021 4:17 AM SKEIN WASHER TYPE + SCREEN PANEL STAT 12/18/2021 4 :17 AM SKEIN WASHER XR FEMUR LEFT 2VW STAT 12/18/2021 1:3 6 AM SKEIN WASHER Closed fracture of left hip, initial encounter (HCC) PT-INR [facility] STAT 12/17/2021 11:11 PM SKEIN WASHER ALCOHOL ETHYL BLOOD STAT 12/17/2021 1 1:11 PM SKEIN WASHER XR PELVIS W LEFT HIP 2VW STAT 12/17/2021 11:05 PM SKEIN WASHER Closed fracture of left hip, initial encounter ([facility]) CBC W AUTO DIFFERENTIAL STAT 12/17/2021 10:58 PM SKEIN WASHER COMPREHENSIVE METABOLIC PANEL STAT 12/17/2021 10:57 PM SKEIN WASHER documented in this encounter Results * (ABNORMAL) CBC W/O DIFFERENTIAL (12/19/2021 1:53 AM SKEIN WASHER) [facility] WBC 7.5 3.5 - 10.5 10? 3 /uL 12/19/2021 1:57 AM [facility] RBC 4.23(L) 4.30 - 5.70 10? 6 /uL 12/19/2021 1:57 AM [facility] Hemoglobin 13.0 12.0 - 17.6 g/dL 12/19/2021 1:57 AM [facility] Hematocrit 39.1 35.2 - 51.7 % 12/19/2021 1:57 AM [facility] MCV 92.4 80.7 - 98.3 fL 12/19/2021 1:57 AM [facility] MCH 30.7 26.7 - 34.0 pg 12/19/2021 1:57 AM [facility] MCHC 33.2 30.8 - 35.9 g/dL 12/19/2021 1:57 AM [facility] Platelet Count 198 150 - 400 10? 3 /uL 12/19/2021 1:57 AM [facility] RDW-SD 56.4(H) 36.0 - 50.0 fL 12/19/2021 1:57 AM [facility] RDW-CV 16.5(H) 11.2 - 14.8 % 12/19/2021 1:57 AM [facility] MPV 9.3(L) 9.4 - 12.9 fL 12/19/2021 1:57 AM [facility] nRBC Absolute 0.00 0 10? 3 /uL 12/19/2021 1:57 AM [facility] nRBC Auto 0.0 0 /100 WBC 12/19/2021 1:57 AM [facility] Blood BLOOD SPECIMEN / Unknown Lab Venipuncture / Unknown 12/19/2021 1:53 AM SKEIN WASHER 12/19/2021 1:53 AM SKEIN WASHER Anastasia A Trenton DEPARTURE CLERK-FIRE BEHAVIOR ANALYST LAB - HEMATOLO GY ORDERABLES Performing Organization Address [facility] de Phone Number [facility] [address] [phone], [facility] [phone] * (ABNORMAL) VITAMIN D 25-HYDROXY (12/19/2021 1:35 AM SKEIN WASHER) [facility] Vitamin D, 25 Hydroxy 7.0(L) 30.0 - 80.0 ng/mL 12/19/2021 2:30 AM [facility] Comment: The recommendations for 25-Hydroxy Vitamin [...] Lab Venipuncture / Unknown 12/19/2021 1:35 AM SKEIN WASHER 12/19/2021 1:46 AM SKEIN WASHER Anastasia Chowdhury DEPARTURE CLERK-FIRE BEHAVIOR ANALYST LAB - CHEMISTR Y ORDERABLES Performing Organization Address [facility]/State/ZIP Co de Phone Number [facility] [address] [place] [address], [facility] [phone] * (ABNORMAL) COMPREHENSIVE METABOLIC PANEL (12/19/2021 1:35 AM [facility]) BUN 9 7 - 26 mg/dL 12/19/2021 2:12 AM [facility] Creatinine 0.56(L) 0.71 - 1.16 mg/dL 12/19/2021 2:12 AM [facility] Sodium 134(L) 136 - 145 mmol/L 12/19/2021 2:12 AM [facility] Potassium 3.9 3.5 - 4.5 mmol/L 12/19/2021 2:12 AM [facility] Chloride 100 98 - 107 mmol/L 12/19/2021 2:12 AM [facility] CO2 23 22 - 29 mmol/L 12/19/2021 2:12 AM [facility] Glucose 95 70 - 115 mg/dL 12/19/2021 2:12 AM [facility] Calcium 9.0 8.4 - 10.2 mg/dL 12/19/2021 2:12 AM [facility] Protein Total 7.6 6.0 - 8.3 g/dL 12/19/2021 2:12 AM [facility] Albumin 2.7(L) 3.4 - 5.0 g/dL 12/19/2021 2:12 AM [facility] Bilirubin Total 1.0 0.2 - 1.2 mg/dL 12/19/2021 2:12 AM [facility] Alkaline Phosphatase 180(H) 40 - 150 U/L 12/19/2021 2:12 AM [facility] ALT 67(H) 5 - 55 U/L 12/19/2021 2:12 AM [facility] AST 91(H) 5 - 34 U/L 12/19/2021 2:12 AM [facility] Anion Gap 15 8 - 18 12/19/2021 2:12 AM [facility] BUN/Creatinine Ratio 16 7 - 23 12/19/2021 2:12 AM [facility] Osmolality Calculated 276 270 - 300 mOsm/kg 12/19/2021 2:12 AM [facility] Albumin/Globulin Ratio 0.6(L) 1.1 - 2.3 12/19/2021 2:12 AM [facility] eGFR by CKD-EPI >90 >=90 mL/min/1.7 3 m2 12/19/2021 2:12 AM [facility] Blood BLOOD SPECIMEN / Unknown Lab Venipuncture / Unknown 12/19/2021 1:35 AM SKEIN WASHER 12/19/2021 1:46 AM SKEIN WASHER Anastasia Chowdhury DEPARTURE CLERK-FIRE BEHAVIOR ANALYST LAB - CHEMISTR Y ORDERABLES [facility] [address] [place] [address], [facility] [phone] * CT HIP LEFT WO CONTRAST (12/18/2021 6:44 AM SKEIN WASHER) Anatomical Region Laterality Modality Lower Extremity Computed Tomogra phy 12/18/2021 6:48 AM SKEIN WASHER Impressions 12/18/2021 8:00 AM SKEIN WASHER Impression: Displaced left femoral neck fracture, age-indeterminate. Cannot exclude a small posterior-superior acetabular wall fracture. See comments above. Report drafted by Shaun Marie (resident) I, Dr. VALENTE MCDUFFIE MD have personally reviewed and interpreted this examination/study. This report was electronically signed by VALENTE MCDUFFIE MD ??on 12/18/2021 8:00 AM . Narrative 12/18/2021 8:00 AM SKEIN WASHER Procedure Information DATE: 12/18/2021 6:45 AM EXAMINATION: [...] URINE DRUG SCREEN IMMUNOASSAY (12/18/2021 4:57 AM SKEIN WASHER) [facility] Amphetamines Screen Urine Positive(A) Negative : < 1000 ng/mL 12/18/2021 5:21 AM SKEIN WASHER [facility] Comment: Positive urine amphetamine screening results should be confirmed by another generally accepted non-immunological method such as gas chromatography or mass spectrometry. ? Barbiturates Screen Urine Negative Negative : < 200 ng/mL 12/18/2021 5:21 AM [facility] Benzodiazepine Screen Urine Negative Negative : < 200 ng/mL 12/18/2021 5:21 AM [facility] Opiates Urine Positive(A) Negative : < 300 ng/mL 12/18/2021 5:21 AM [facility] Comment:Positive urine opiat e screening results should be confirmed by another generally accepted non-immunological method such as gas chromatography or mass spectrometry. Cocaine Metabolites Urine Negative Negative : < 300 ng/mL 12/18/2021 5:21 AM [facility] Phencyclidine Screen Urine Negative Negative : < 25 ng/ml 12/18/2021 5:21 AM [facility] Cannabinoids Screen Urine Positive(A) Negative : <50 ng/mL 12/18/2021 5:21 AM [facility] Comment:Positive urine canna binoids (THC) screening results should be confirmed by another generally accepted non-immunological method such as gas chromatography or mass spectrometry. Methadone Screen Urine Negative Negative : < 300 ng/mL 12/18/2021 5:21 AM [facility] Fentanyl Screen Urine Positive(A) Negative : <1.0 ng/mL 12/18/2021 5:21 AM [facility] Comment:Positive urine fenta nyl screening results should be confirmed by another generally accepted non-immunological method such as gas chromatography or mass spectrometry. Urine URINE / Unknown Collection / Unknown 12/18/2021 4:57 AM [facility] 12/18/2021 4:59 AM [facility] - 12/18/2021 5:21 AM [facility] The Urine Toxicology Screening Panel does not screen for Propoxyphene, Meprobamate, Carisoprodol, Trazodone, cmxg-nrn-hfqjfvo medications and/or volatiles (Acetone, Isopropanol, Methanol or Ethylene Glycol). Ethanol, Salicylate, Acetaminophen, Tricyclic Antidepressants and several therapeutic drugs may be individually assayed in serum or plasma specimen. Toxicology testing by the [facility] is an aid to medical diagnosis and treatment of patients. No documented chain of custody was maintained. Results are intended to be used for clinical purposes only. ? L[place] Thompson MD LAB - URINE CHEMISTR Y ORDERABLES Performing Organization Address [facility] de Phone Number [address] [address], [place] [phone] * BLOOD TYPE VERIFICATION (12/18/2021 4:44 AM S[facility]) [facility] ABO Rh B POS 12/18/2021 5:1 9 AM [facility] B[facility] LAB Blood Bank BLOOD SPECIMEN / Unknown Lab Venipuncture / Unknown 12/18/2021 4:44 AM [facility] 12/18/2021 4:51 AM [facility] L[place] Thompson MD LAB - BLOOD BANK ORD ERABLES Performing Organization Address [facility] de Phone Number [facility] BLOOD B[facility] LAB [address] [place] [address], [place] [phone] * SARS-COV-2 (COVID-19)+INFLU A+B PCR RAPID (12/18/2021 4:17 AM [facility]) [facility] COVID-19 PCR Not detected Not detected 12/18/19 6:44 AM [facility] Influenza A Rapid MISAEL Not Detected Not Detected 12/18/2021 6:44 AM [facility] Influenza B MISAEL Rapid Not Detected Not Detected 12/18/2021 6:44 AM [facility] Microbiology SPECIMEN FROM NASOPHARYNGEAL STRUCTURE / Unknown Collection / Unknown 12/18/2021 4:17 AM [facility] 12/18/2021 6:15 AM [facility] Narrative [facility] - 12/18/2021 6:44 AM [facility] Influenza assay performed by [employer]. [...] acid amplification assay performance was validated by [facility]. This test has been authorized [...] Thompson MD LAB - MICROBIOLOGY O RDERABLES [facility] [address] [place] [address], [facility] [phone] * TYPE + SCREEN PANEL (12/18/2021 4:17 AM S[facility]) Antibody Screen NEG 5:14 AM [facility] BLOOD B[facility] LAB ABO Rh B POS 12/18/2021 5:14 AM [facility] BLOOD [facility] LAB Blood Bank BLOOD SPECIMEN / Unknown Venipuncture / Unknown 12/18/2021 4:17 AM [facility] 12/18/2021 4:29 AM [facility] L[place] Thompson MD LAB - BLOOD BANK ORD ERABLES [facility] B[facility]OD [facility] [address] [place] [address], [facility] [phone] * XR FEMUR LEFT 2VW (12/18/2021 1:36 AM [facility]) Anatomical Region Laterality Modality Lower Extremity Radiographic Юлия ging 12/18/2021 7:13 AM [facility] Impressions 12/18/2021 10:34 AM [facility] FINDINGS/IMPRESSION: Comminuted moderately displaced subcapital fracture of the left femoral neck. There is 1.3 cm interposition of the femoral head and the femoral shaft at the fracture line. The femoral head appears well positioned within its respective acetabula. Soft tissue swelling is noted. Dictated by Stanley Joyce MD (residential sales rep). Dr. ALO Anton MD, [facility] have personally reviewed and interpreted this examination/study. This report was electronically signed by ALO VAZQUEZ MD, [facility] ??on 12/18/2021 10:34 AM . Narrative 12/18/2021 10:34 AM [facility] EXAMINATION: XR FEMUR LEFT 2VW HISTORY: [id number]: [...] noted. Dictated by Stanley Joyce MD (residential sales rep). IDr. ALO MD, [facility] have personally reviewedand interpreted this examination/study. This report was electronically signed by ALO VAZQUEZ MD, FRCR on 12/18/2021 10:34 AM . L[place] Thompson MD DIAGNOSTIC IMAGING O RDERABLES * (ABNORMAL) PT-INR [facility] (12/17/2021 11:11 PM S[facility] W[facility]ER) PT 15.4(H) 12.1 - 14.8 Seconds 12/17/2021 11:32 PM [facility] INR 1.2 See Comment 12/17/2021 11:32 PM [facility] Comment:The suggested therap eutic range for standard coumadin (warfarin) therapy is an INR of 2.0-3.0. For high-risk patients (Mechanical Mitral Valve Prosthesis, etc.), the suggested prophylactic therapeutic range is an INR of 2.5-3.5. Blood BLOOD SPECIMEN / Unknown Venipuncture / Unknown 12/17/2021 11:11 PM [facility] 12/17/2021 11:14 PM [facility] L[place] Thompson MD LAB - COAGULATION OR DERABLES [facility] [address] [place] [address], [facility] [phone] * ALCOHOL ETHYL BLOOD (12/17/2021 11:11 PM [facility]) Ethanol (mg/dL) <10 <10 mg/dL 11:34 PM [facility] Ethanol Calculated (g/dL) <0.010 <0.010 g/dL 12/17/2021 11:34 PM [facility] Blood BLOOD SPECIMEN / Unknown Venipuncture / Unknown 12/17/2021 11:11 PM [facility] 12/17/2021 11:14 PM [facility] Narrative [facility] - 12/17/2021 11:34 PM [facility] Ethanol Interp <10: None Detected. Depression of FIRE BEHAVIOR ANALYST: >100 mg/dl Potentially Critical: >250 mg/dl Potentially [...] Thompson MD LAB - CHEMISTRY KURT ZARAGOZA [facility] Organization Address City/State/ZIP Co de Phone Number [facility] [place] [address], [facility] [phone] * XR PELVIS W LEFT HIP 2VW (12/17/2021 11:05 PM S[facility]ER) Anatomical Region Laterality Modality Pelvis Radiographic Юлия ging 12/17/2021 11:0 6 PM [facility] Impressions 12/18/2021 10:05 AM [facility] IMPRESSION: Superolaterally displaced fracture of the left femoral neck. Report dictated by Shama Landry M.D. (residential sales rep). I, Dr. ALO VAZQUEZ MD, [facility] have personally reviewed and interpreted this examination/study. This report was electronically signed by ALO VAZQUEZ MD, CR ??on 12/18/2021 10:05 AM . Narrative 12/18/2021 10:05 AM [facility] EXAMINATION: XR PELVIS W LEFT HIP 2VW [...] Report dictated by Shama Landry M.D. (residential sales rep). I, Dr. ALO VAZQUEZ MD, FRCR have personally reviewedand interpreted this examination/study. This report was electronically signed by ALO VAZQUEZ MD, FRCR on 12/18/2021 10:05 AM . [place] Thompson MD DIAGNOSTIC IMAGING O RDERABLES * (ABNORMAL) CBC W AUTO DIFFERENTIAL (12/17/2021 10:58 PM [facility]) WBC 10.1 3.5 - 10.5 10? 3 /uL 12/17/2021 11:12 PM [facility] RBC 3.99(L) 4.30 - 5.70 10? 6 /uL 12/17/2021 11:12 PM [facility] Hemoglobin 12.3 12.0 - 17.6 g/dL 12/17/2021 11:12 PM [facility] Hematocrit 35.2 35.2 - 51.7 % 12/17/2021 11:12 PM [facility] MCV 88.2 80.7 - 98.3 fL 12/17/2021 11:12 PM [facility] MCH 30.8 26.7 - 34.0 pg 12/17/2021 11:12 PM [facility] MCHC 34.9 30.8 - 35.9 g/dL 12/17/2021 11:12 PM [facility] Platelet Count 192 150 - 400 10? 3 /uL 12/17/2021 11:12 PM [facility] RDW-SD 52.6(H) 36.0 - 50.0 fL 12/17/2021 11:12 PM [facility] RDW-CV 16.3(H) 11.2 - 14.8 % 12/17/2021 11:12 PM [facility] MPV 9.7 9.4 - 12.9 fL 12/17/2021 11:12 PM [facility] nRBC Absolute 0.00 0 10? 3 /uL 12/17/2021 11:12 PM [facility] nRBC Auto 0.0 0 /100 WBC 12/17/2021 11:12 PM [facility] Neutrophils % 65.3 35.0 - 70.0 % 12/17/2021 11:12 PM [facility] Lymphocytes % 12.4(L) 20.0 - 43.0 % 12/17/2021 11:12 PM [facility] Monocytes % 18.8(H) 5.0 - 13.0 % 12/17/2021 11:12 PM [facility] Eosinophils % 2.8 0.0 - 6.0 % 12/17/2021 11:12 PM [facility] Basophil % 0.4 0.0 - 2.0 % 12/17/2021 11:12 PM [facility] Neutrophils Absolute 6.6 1.6 - 7.0 10? 3 /uL 12/17/2021 11:12 PM [facility] Lymphocyte Absolute 1.3 1.1 - 3.9 10? 3 /uL 12/17/2021 11:12 PM [facility] Monocytes Absolute 1.90(H) 0.26 - 1.07 10? 3 /uL 12/17/2021 11:12 PM [facility] Eosinophils Absolute 0.28 0.00 - 0.47 10? 3 /uL 12/17/2021 11:12 PM [facility] Basophils Absolute 0.04 0.00 - 0.08 10? 3 /uL 12/17/2021 11:12 PM [facility] Immature Granulocytes % 0.3 0.0 - 1.0 % 12/17/2021 11:12 PM [facility] Immature Granulocytes Absolute 0.03 12/17/2021 11:12 PM [facility] Blood BLOOD SPECIMEN / Unknown Venipuncture / Unknown 12/17/2021 10:58 PM [facility] 12/17/2021 11:04 PM [facility] L[place] Thompson MD LAB - HEMATOLOGY ORD ERABLES [facility] [address] [place] [address], [facility] [phone] * (ABNORMAL) COMPREHENSIVE METABOLIC PANEL (12/17/2021 10:57 PM [facility]) BUN 10 7 - 26 mg/dL 12/17/2021 11:36 PM [facility] Creatinine 0.44(L) 0.71 - 1.16 mg/dL 12/17/2021 11:36 PM [facility] Sodium 131(L) 136 - 145 mmol/L 12/17/2021 11:36 PM [facility] Potassium 4.4 3.5 - 4.5 mmol/L 12/17/2021 11:36 PM [facility] Comment:Hemolysis detected i n this specimen. Hemolysis may cause false elevations in potassium leading to pseudohyperkalemia or masked hypokalemia. Recommend repeat testing if clinically indicated. Chloride 94(L) 98 - 107 mmol/L 12/17/2021 11:36 PM [facility] CO2 25 22 - 29 mmol/L 12/17/2021 11:36 PM [facility] Glucose 90 70 - 115 mg/dL 12/17/2021 11:36 PM [facility] Calcium 8.8 8.4 - 10.2 mg/dL 12/17/2021 11:36 PM [facility] Protein Total 8.1 6.0 - 8.3 g/dL 12/17/2021 11:36 PM [facility] Comment:Hemolysis detected i n this specimen. Hemolysis is known to cause elevations in this analyte. Caution should be exercised in the interpretation of this result. Recommend repeat testing if clinically indicated. Albumin 3.0(L) 3.4 - 5.0 g/dL 12/17/2021 11:36 PM [facility] Bilirubin Total 1.3(H) 0.2 - 1.2 mg/dL 12/17/2021 11:36 PM [facility] Alkaline Phosphatase 179(H) 40 - 150 U/L 12/17/2021 11:36 PM [facility] ALT 74(H) 5 - 55 U/L 12/17/2021 11:36 PM [facility] AST 127(H) 5 - 34 U/L 12/17/2021 11:36 PM [facility] Comment:Hemolysis detected i n this specimen. Hemolysis is known to cause elevations in this analyte. Caution should be exercised in the interpretation of this result. Recommend repeat testing if clinically indicated. Anion Gap 16 8 - 18 12/17/2021 11:36 PM [facility] BUN/Creatinine Ratio 23 7 - 23 11/26 11:36 PM [facility] Osmolality Calculated 271 270 - 300 mOsm/kg 12/17/2021 11:36 PM [facility] Albumin/Globulin Ratio 0.6(L) 1.1 - 2.3 12/17/2021 11:36 PM [facility] eGFR by CKD-EPI >90 >=90 mL/min/1 .73 m2 12/17/2021 11:36 PM [facility] Blood BLOOD SPECIMEN / Unknown Venipuncture / Unknown 12/17/2021 10:57 PM [facility] 12/17/2021 11:04 PM [facility] L[place] Thompson MD LAB - CHEMISTRY KURT ZARAGOZA [facility] Organization Address City/State/ZIP Co de Phone Number [facility] [address] [place] [address], [facility] [phone] documented in this encounter Visit Diagnoses Diagnosis [...] Until Discontinued $ Given 12/20/2021 12:56 PM [facility] 10 mg $ Given 12/20/2021 8:31 AM [facility] 10 mg $ Given 12/19/2021 8:47 PM [facility] 10 mg busPIRone (Buspar) tablet 5 mg 5 mg, Oral, 2 TIMES DAILY, First dose on Wed12/18/21 at 0900, Until Discontinued $ Given 12/20/2021 8:32 AM [facility] 5 mg $ Given 12/19/2021 8:47 PM [facility] 5 mg $ Given 12/19/2021 8:32 AM [facility] 5 mg calcium tablet 500 mg 500 mg, Oral, 2 TIMES DAILY WITH MEALS, First dose on Wed12/19/21 at 0800, Until Discontinued $ Given 12/20/2021 8:32 AM [facility] 500 mg $ Given 12/19/2021 5:03 PM [facility] 500 mg $ Given 12/19/2021 8:33 AM [facility] 500 mg folic acid (Folvite) tablet 1 mg 1 mg, Oral, DAILY, First dose on Wed12/18/21 at 0900, Until Discontinued $ Given 12/20/2021 8:31 AM [facility] 1 mg $ Given 12/19/2021 8:32 AM [facility] 1 mg $ Given 12/18/2021 9:27 AM [facility] 1 mg furosemide (Lasix) tablet 60 mg 60 mg, Oral, DAILY, First dose (after last modification) on Wed12/19/21 at 0900, Until Discontinued $ Given 12/20/2021 8:31 AM [facility] 60 mg $ Given 12/19/2021 8:33 AM [facility] 60 mg gabapentin (Neurontin) capsule 100 mg 100 mg, Oral, 3 TIMES DAILY, First dose on Wed12/18/21 at 0900, Until Discontinued $ Given 12/18/2021 1:19 PM [facility] 100 mg $ Given 12/18/2021 9:27 AM [facility] 100 mg lactated ringers infusion at 125 mL/hr, Intravenous, CONTINUOUS, Starting on Wed12/18/21 at 0445, Until Wed12/18/21 at 1113 $ New Bag/Syringe 12/18/2021 4:30 AM [facility] 125 mL/hr lactulose (Chronulac) solution 3.333 g 3.333 g (rounded from 3.3333 g = 5 mL), Oral, 3 TIMES DAILY, First dose on Wed12/18/21 at 0900, Until Discontinued $ Given 12/20/2021 8:32 AM [facility] 3.333 g mirtazapine (Remeron) tablet 30 mg 30 mg, Oral, AT BEDTIME, First dose on Wed12/18/21 at 2100, Until Discontinued $ Given 12/19/2021 8:47 PM [facility] 30 mg $ Given 12/18/2021 8:03 PM [facility] 30 mg morphine injection 4 mg 4 [...] the MAR. $ Given 12/17/2021 11:13 PM [facility] 4 mg multivitamin daily tablet 1 tablet 1 tablet, Oral, DAILY, First dose on Wed12/19/21 at 0900, Until Discontinued, . WASTE DISPOSAL INSTRUCTIONS: Black Bin Disposal required. $ Given 12/20/2021 8:32 AM [facility] 1 tablet $ Given 12/19/2021 8:33 AM [facility] 1 tablet ondansetron (Zofran) injection 4 mg 4 mg, Intravenous, NOW, 1 dose, On Wed12/17/21 at 2245, Administer over 2 to 5 minutes. $ Given 12/17/2021 11:13 PM [facility] 4 mg oxyCODONE (immediate release) (Roxicodone) tablet [...] the MAR. $ Given 12/19/2021 12:58 PM [facility] 5 mg $ Given 12/19/2021 8:33 AM [facility] 5 mg $ Given 12/19/2021 4:26 AM [facility] 5 mg pantoprazole EC (Protonix) tablet 40 mg 40 mg, Oral, 2 TIMES DAILY, First dose on [facility] 12/18/21 at 0900, Until Discontinued, Do not crush, chew, or cut in half. $ Given 12/20/2021 8:32 AM [facility] 40 mg $ Given 12/19/2021 8:47 PM [facility] 40 mg $ Given 12/19/2021 8:33 AM [facility] 40 mg pregabalin (Lyrica) capsule 75 mg 75 mg, Oral, 2 TIMES DAILY, First dose on [facility] 12/18/21 at 2100, Until Discontinued $ Given 12/20/2021 8:32 AM [facility] 75 m g $ Given 12/19/2021 8:50 PM [facility] 75 mg $ Given 12/19/2021 8:33 AM [facility] 75 mg propranolol (Inderal) tablet 10 mg 10 mg, Oral, 2 TIMES DAILY, First dose on [facility] 12/18/21 at 0900, Until Discontinued, Avoid abrupt withdrawal $ Given 12/20/2021 8:33 AM [facility] 10 mg $ Given 12/19/2021 8:47 PM [facility] 10 mg $ Given 12/19/2021 8:33 AM [facility] 10 mg rifAXIMin (Xifaxan) tablet 550 mg 550 mg, Oral, 2 TIMES DAILY, First dose on [facility] 12/18/21 at 1315, Until Discontinued $ Given 12/20/2021 8:31 AM [facility] 550 mg $ Given 12/19/2021 8:47 PM [facility] 550 mg $ Given 12/19/2021 8:33 AM [facility] 550 mg spironolactone (Aldactone) tablet 100 mg 100 mg, Oral, ONCE, 1 dose, On [facility] 12/18/21 at 1300 $ Given 12/18/2021 1:19 PM [facility] 100 mg spironolactone (Aldactone) tablet 150 mg 150 mg, Oral, DAILY, First dose (after last modification) on Wed12/19/21 at 0900, Until Discontinued $ Given 12/20/2021 8:31 AM [facility] 150 mg $ Given 12/19/2021 8:32 AM [facility] 150 mg spironolactone (Aldactone) tablet 50 mg 50 mg, Oral, DAILY, First dose on [facility] 12/18/21 at 0900, Until Discontinued $ Given 12/18/2021 9:27 AM [facility] 50 mg temazepam (Restoril) capsule 7.5 mg 7.5 mg, Oral, AT BEDTIME, First dose on [facility] 12/18/21 at 2100, Until Discontinued $ Given 12/19/2021 8:47 PM [facility] 7.5 mg $ Given 12/18/2021 8:02 PM [facility] 7.5 mg traMADol (Ultram) tablet 50 mg [...] the MAR. $ Given 12/20/2021 12:25 PM [facility] 50 m g $ Given 12/20/2021 2:28 AM [facility] 50 mg $ Given 12/19/2021 5:03 PM [facility] 50 mg vitamin D (ergocalciferol) (Drisdol) 1.25 MG (99143 UT) capsule 50,000 Units 50,000 Units, Oral, EVERY 7 DAYS, First dose on Wed12/19/21 at 0900, Until Discontinued, Do not crush or chew. $ Given 12/19/2021 8:32 AM [facility] 50,000 Units documented in this encounter Active and Recently Administered Medications Times are shown in [facility]. Scheduled Medication Order 12/18/2021 12/19/2021 12/20/2021 baclofen [...] Beatty RN) 08 ($ Given - Provider: oRxana Lancaster RN) 0831 ($ Given - Provider: [...] RN) vitamin D (ergocalciferol) (Drisdol) 1.25 MG (05429 UT) capsule 50,000 Units 50,000 Units, Oral, [...] 0228 ($ Given - Provider: Franchesca Dupont RN)4395 ($ Given - Provider: Roxana Lancaster RN) documented in this encounter Care Teams Patient Monitor Relationship Specialty Start Date End Date Major Kraft MD PCP - General 07/01/21 06/08/22 Eric Oconnell MD Hospitalist 10/10/21 documented as of this encounter
--- OUTSIDE RECORDS SUMMARY | 2024-11-05 08:51 | XMS_ITS | Encounter Summary ---
Author Organization [facility] Health Address [address] [place] [address] Care Team Providers Care Textile Worker Name Role Phone Major Kraft MD Primary Care Provider + [phone] Eric Oconnell MD Unavailable + [phone] Reason for Visit * Reason Onset Date Comments Surgery Scheduling 01/07/2022 Encounter Details Date Type Department Care Team (Late st Contact Info) Description 01/07/2022 Telephone [facility] - [address] [place] [id number] Anai Hahn RN Surgery Scheduling Social History [...] he saw ortho today ( records in [facility]). Patient has a lefthip fracture and will need a replacement. Patient will need clearance from hepatology to proceed with surgery. Per patient okay to put letter of clearance into [facility] as surgeons are [facility]. documented in this encounter Plan of Treatment Upcoming Encounters Date Type Department Care Team (Late st Contact Info) Description 11/29/2024 8:30 AM [facility] Office Visit [facility] - Orthopedic Surgery [address] [place] [address] Toño Cabrera MD [address] [facility] [address] [place] [address] 01/08/2025 8:00 AM CDT Appointment [facility] [address] [place] [address] 01/08/2025 9:00 AM CDT Office Visit [facility] - GI [address] [facility] [place] [address] Amos Pabon MD [address] [facility] [address] [place] [address] documented as of this encounter Goals Goal [...] on filedocumented in this encounter Care Teams Textile Worker Relationship Specialty Start Date End Date Major Kraft MD PCP - General 07/01/21 06/08/22 Eric Oconnell MD Hospitalist 10/10/21 documented as of this encounter
--- OUTSIDE RECORDS SUMMARY | 2024-11-05 08:51 | XMS_ITS | Encounter Summary ---
Author Organization [facility] Address [address] [place] [address] Care Team Providers Care Twist Tester Name Role Phone Major Kraft MD Primary Care Provider + [phone] Encounter Details Date Type Department Care Team [...] COVID-19? No / Unsure 10/01/2021 10:22 AM RATING SPECIALIST documented as of this encounter Plan of Treatment Upcoming Encounters Date Type Department Care Team (Late st Contact Info) Description 11/29/2024 8:30 AM RATING SPECIALIST Office Visit [facility] - Orthopedic Surgery [address] [place] [address] Toño Cabrera MD [address] [facility] [address] [place] [address] 01/08/2025 8:00 AM CDT Appointment [facility] [address] [place] [address] 01/08/2025 9:00 AM CDT Office Visit [facility] - GI [address] [facility] [place] [address] Amos Pabon MD [facility] [place] [address] documented as of this encounter Goals Goal [...] on filedocumented in this encounter Care Teams Twist Tester Relationship Specialty Start Date End Date Major Kraft MD PCP - General 07/01/21 06/08/22 documented as of this encounter
--- OUTSIDE RECORDS SUMMARY | 2024-11-05 08:52 | XMS_ITS | Encounter Summary ---
Author Organization [facility] Address [address] [place], [place] [id number] Care Team Providers Care Forest Ecologist Name Role Phone Major Kraft MD Primary Care Provider [phone] Reason for Referral * Diagnostic Imaging (Routine) - Closed Specialty Diagnoses / Procedures Referred By Contac t Referred To Contact Diagnoses Left hip pain Procedures XR Hip Left 2 or 3 Views Isaak Chase MD [address] [place] [address] [address] Phone: tel: fax: [address] [phone] Referral ID Status Reason Start Date Expiration Date Visits Re quested Visits Authorized [id number] Closed 08/24/2022 09/23/2023 1 1 Reason for Visit * Diagnostic Imaging (Routine) - Closed Specialty Diagnoses / Procedures Referred By Contac t Referred To Contact Diagnoses Left hip pain Procedures XR Hip Left 2 or 3 Views Isaak Chase MD [address] [place] [address] [address] Phone: tel: fax: [address] [phone] Referral ID Status Reason Start Date Expiration Date Visits Re quested Visits Authorized [id number] Closed 08/24/2022 09/23/2023 1 1 Encounter Details Date Type Department Care Team (Latest Contact Info) Description 08/25/2022 1:28 PM CDT - 08/25/2022 11:59 PM CDT Hospital Encounter [facility] Imaging [address] [place] [address] Left hip pain Discharge Disposition: Discharge to home or self care Social History Tobacco Use Types Packs/Day Years Used Date Smoking Tobacco: Never Sex and Gender Information Value Date Recorded Sex Assigned at Not on file Legal Sex Male 1:24 PM [employer] Gender Identity Not on file Sexual Orientation [...] D: ??08/25/2022 2:46 PM T: Report ID: [id number] Reading Location: ??[place] [address] Procedure Note Isaak Chase MD - 08/25/2022 [...] signed by Isaak BUNDY T: Report ID: [id number] Reading Location: [place] [address] Isaak Chase MD IMG XR PROCEDURES Final Resu lt documented in this encounter Visit Diagnoses Diagnosis Left hip pain Pain in joint, pelvic region and thigh documented in this encounter Care Teams Forest Ecologist Relationship Specialty Start Date End Date Major Kraft MD PCP - General Internal Medicine 11/07/21 documented as of this encounter
--- OUTSIDE RECORDS SUMMARY | 2024-11-05 08:52 | XMS_ITS | Encounter Summary ---
Author Organization [facility] Healthcare Address [address] [place] [id number] Care Team Providers Care Clinical Operations Manager Name Role Phone Major Dotson MD Primary Care Provider [phone] Harpal Lopez MD Unavailable [phone] Reason for Visit * Reason Comments Chest Pain * Auth/Cert (Routine) Specialty Diagnoses / Procedures Referred By Contac t Referred To Contact Diagnoses Alcohol withdrawal syndrome with complication (HCC) Procedures n/a Referral ID Status Reason Start Date Expiration Date Visits Re quested Visits Authorized [id number] 1 1 Encounter Details Date Type Department Care Team (Late st Contact Info) Description 09/28/2023 7:58 PM [facility] - 10/05/2023 1:06 PM [facility] Hospital Encounter [address] [address] Mansoor Valdes MD [address] [place] [id number] Miguelito James Jr., MD [address] [place] [address] Manuelito Hannah MD [address] [place] [address] Donal Cabrera MD [address] [place] [address] Negrito Crowley MD [address] [place] [address] Alcohol withdrawal syndrome with complication (HCC) (Primary Dx) Discharge Disposition: Discharge to SNF Social History Tobacco Use Types Packs/Day Years Used Date Smoking Tobacco: Every Day Cigarettes 0.3 18 Tobacco Cessation:Ready to Q uit: Not Asked; Counseling Given: Not Answered [facility] Utilities Answer Date Recorded In the past 12 months has th e [place] [employer], gas, oil, or water [employer] threatened to shut off services in your [...] often do you attend chur ch or restorationism services? Never 09/29/2023 Do you belong to [...] place to sleep or slept in a senior care (including now)? No 09/29/2023 Personal Safety Answer Date Recorded Have you ever been in or are you currently in a harmful physical or emotional relationship or is someone making you feel afraid or unsafe? Denies 09/28/2023 Sex and Gender Information Value Date Recorded Sex Assigned at Not on file Legal Sex Male 1:24 PM [facility] Gender Identity Not on file Sexual Orientation Not on file Occupation Industry Job Start Date Job End Date disabled Not on file Not on file Not on file documented as of this encounter Last Filed Vital Signs Vital Sign Reading Time Taken Comments Blood Pressure 111/80 10/05/2023 11:30 AM [facility] Pulse 71 10/05/2023 11:30 AM [facility] Temperature 36.5 ??C (97.7 ??F) 10/05/2023 1 1:30 AM [facility] Respiratory Rate 16 10/05/2023 11:3 0 AM [facility] Oxygen Saturation 96% 10/05/2023 11: 30 AM [facility] Inhaled Oxygen Concentration - - Weight 90.6 kg (199 lb 11.8 oz) 10/05/2023 7:48 AM [facility] Height 170.2 cm (5' 7.01 ) 09/30/2023 7:38 AM CS T Body Mass Index 31.28 09/30/2023 7:38 AM [facility] documented in this encounter Discharge Summaries * Negrito Crowley MD - 10/05/2023 1:06 PM CST Inpatient Discharge Summary Patient Name - Love Diaz Patient Age - 38 yrs Patient - [id number] [facility] - [id number] Document Creation Date: 10/10/2023 Admitting Provider, : Manuelito Hannah MD Discharge Provider, : No att. providers found Primary Care Physician at Discharge: Major Dotson MD [phone] Admission Date: 09/28/2023 Discharge Date/time: 10/05/2023 Admission Location: [facility] LOS - LOS: 6 days DETAILS OF HOSPITAL STAY Hospital Problems/Diagnoses Principal Problem: Alcohol withdrawal syndrome with complication (HCC) Active Problems: Hepatic cirrhosis (HCC) Hyponatremia Reason for Hospitalization: 38 y.o. male with a PMHx significant for alcoholism and cirrhosis. Patient presents to the emergency department with alcohol withdrawal. Patient had been at [facility] and rehab but was on a 7 day leave when he began drinking heavily. Patient states he has been drinking 20-30 beers per day. He was at [facility] fracture.His last alcohol use was yesterday. He currently denies chest pain, shortness breath, nausea, vomiting, diarrhea. He does endorse right upper quadrant pain and states that has been chronic. Hospital Course: Alcohol dependence c/b withdrawal syndrome - patient [facility], was [...] for discharge. - Patient has appointment with [facility] Hepatology in October and asked him to [...] Major Dotson MD Specialty: Internal Medicine [address] [address] Next Steps: Follow up Comments: Follow up with established provider: 1 week Questions: To provider: MAJOR DOTSON Kamran Ul Haq, MD Specialty: Internal Medicine Relationship: Referring Physician [address] [place] [address] Next Steps: Follow up Comments: Follow up with established provider: Other (specify) as previously scheduled Questions: To provider: HARPAL LOPEZ Charles W., MD Specialty: Internal Medicine Relationship: PCP - General [address] [place] [address] Next Steps: Follow up Please schedule an appointment with the following provider(s): Major Dotson MD [address] [address] Harpal Lopez MD [address] [place] [address] Major Dotson MD [place] [address] ANCILLARY INFORMATION Other Procedures & Diagnostic Tests: Transthoracic Echo (TTE) Complete W Doppler/CF Result Date: 09/29/2023 Adult Echocardiogram + + :Name: LOVE DIAZ Study Date: 09/29/2023 Status: [facility] : : Patient Location: [facility] CTR^[id number]^Height: 67 in : : Weight: 193 lbBP: [...] 3.8 mmHg 104.0 cm/sec MV A max deboar: Ao max P.3 mmHgLV V1 max: PA [...] Rolando Jade M.D., Sid.O. T: Report ID: [id number] Reading Location: [place] [address] Recent Labs: Recent Labs Lab Units 10/04/23 [...] BUN SERUM mg/dL 10 CREATININE mg/dL 0.60* [id number] mL/min/1.73 m2 126 GLUCOSE mg/dL 92 CALCIUM [...] Vaccination (12+ YRS) 08/14/2021 Negrito Crowley MD [facility] documented in this encounter Discharge Instructions * Discharge Instr - Diet* Yuko Ham RD - 09/29/2023 3:38 PM [facility] Recommend to eat a generally healthy diet with foods that include a variety of fruits, vegetables, whole-grain breads, low-fat dairy products, beans, lean meats, and fish. Limit fast food, sugary drinks, excess salt, and desserts. Limit sugary drinks like lemonade, regular soda, Gatorade, and sweettea and drink water throughout the day. Call [phone] to speak with a dietitian about any diet related concerns. Additional resources are available online from the Academy of Nutrition and Dietetics at www.eatright.org [facility] * Attachments The following attachments cannot be sent through Care Everywhere. * Alcohol Withdrawal (Discharge Care) (Ecuadorean) documented in this encounter Medications at Time [...] @ 1306 Documents scanned to [employer] [facility] * Jazmín Leonardo - 10/05/2023 12:10 PM CST PRS f/u with PT before d/c. PRS and pt talked about how [facility] was a fresh start because he was nervous [facility] would treat him different. PT sstated that he wants to remain sober, prs and pt discussed how to avoid triggers. Jazmín Leonardo, Peer Flume Ride Operator Medical Stabilization [phone] [facility] * Sheridan Zheng, ALFREDO - 10/05/2023 10:19 AM CST CARE COORDINATION DISCHARGE PLANNING New SNF Spoke with Carolina at facility and patient can admit today. Bedside RN to call report and fax orders to numbers listed below. Pt and family aware of plans [facility] [address] [place] [address] TRANSPORTATION: Transportation provided by van and peanut picker is anticipated at 1300. ANTICIPATED D/C DATE: today CM will continue to follow for progression of care, if further needs for discharge or barriers to care arise, please reach out to care management team. Sheridan Zheng RN 10/05/2023 10:19 AM [facility] * Donal Cabrera MD - 10/04/2023 3:46 PM CST GENERAL INTERNAL MEDICINE DAILY PROGRESS NOTE Admit Date: 09/28/2023 LOS: 5 Brief Hospital Course: 38M with hx significant for alcohol dependence, alcohol abuse, and cirrhosis presented with alcoholintoxication and was admitted for alcohol withdrawal treatment. He had been at [facility] and [facility]hab after sustaining a hip fracture and was on a 7-day leave when he started drinking alcohol heavily (20- 30 beers daily). 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 Pt was started on CIWA protocol. Pt [...] 1 patch at 09/29/23 0004 influenza quadrivalent [id number] (FLULAVAL,FLUARIX,FLUZONE) 60 mcg (15 mcg x 4)/0.5 [...] LOVE DIAZ Ashley Study Date: 09/29/2023 Status: [facility] : : Patient Location: [facility] 2 CTR^[id number]^MHHeight: 67 in : : Weight: 193 lbBP: [...] Rolando Jade M.D., BinOKaran T: Report ID: [id number] Reading Location: [place] [address] Assessment and Plan: Alcohol dependence c/b withdrawal syndrome - patient from [facility], was [...] time spent in any separately reportable services. [facility] * Estela Jackson PTA - 10/04/2023 11:15 AM CST Physical Therapy 10/04/23 1115 PT Last Visit PT Missed Visit Reason Procedure/testing/appointment (Pt off floor for testing) [facility] * Jazmín Leonardo - 10/04/2023 9:24 AM CST PRS went to follow up with pt after the weekend. PT started shaking when PRS came all the way into the room and stated he feels worse today than when he first came in and requested PRS come back later Jazmín Leonardo, Peer Flume Ride Operator Medical Stabilization [phone] [facility] * Yuko Ham RD - 10/04/2023 8:44 [...] with alcohol withdrawal. Patient had been at [facility] and rehab but was on a7 day leave when he began drinking heavily. Patient states he has been drinking 20-30 beers per day. He was at [facility] and rehab after sustaining a hip fracture. [...] mL/hr (10/04/23 0000) PRN Meds: influenza quadrivalent [id number] LORazepam OR LORazepam OR LORazepam OR LORazepam [...] 10 CREATININE mg/dL 0.60* < > 0.60* [id number] mL/min/1.73 m2 126 < > 126 CALCIUM [...] of Weight Used for Estimated Protein : [place] Total Fluid Estimated Needs: 2012 Fluid Needs Based on : 30 ml/kg Type of Weight Used for EstimatedFluid Needs: [place] Dietary Orders (From admission, onward) Start Ordered [...] . Reports he was eating well at [facility] but has been eating poorly and [...] and drink water throughout the day. Call [phone] to speak with a dietitian about any diet related concerns. Additional resources are available online from the Academy of Nutrition and Dietetics at www.eatright.org Yuko Ham RD [facility] * Donal Cabrera MD - 10/03/2023 5:16 PM CST GENERAL INTERNAL MEDICINE DAILY PROGRESS NOTE Admit Date: 09/28/2023 LOS: 4 Brief Hospital Course: 38M with hx significant for alcohol dependence, alcohol abuse, and cirrhosis presented with alcoholintoxication and was admitted for alcohol withdrawal treatment. He had been at [facility] and Rehab after sustaining a hip fracture and was on a 7-day leave when he started drinking alcohol heavily (20- 30 beers daily). 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 Pt was started on CIWA protocol. Pt [...] 1 patch at 09/29/23 0004 influenza quadrivalent [id number] (FLULAVAL,FLUARIX,FLUZONE) 60 mcg (15 mcg x 4)/0.5 [...] :Name: LOVE DIAZ Study Date: 09/29/2023 Status: [facility] : : Patient Location: [facility] 2 CTR^[id number]^MHHeight: 67 in : : Weight: 193 lbBP: [...] Rolando Jade M.D., Sid.OKaran T: Report ID: [id number] Reading Location: [place] [address] Assessment and Plan: Alcohol dependence c/b withdrawal syndrome - patient from [facility] due [facility] fracture, was [...] time spent in any separately reportable services. [facility] * Donal Cabrera MD - 10/02/2023 1:10 PM CST GENERAL INTERNAL MEDICINE DAILY PROGRESS NOTE Admit Date: 09/28/2023 LOS: 3 Brief Hospital Course: 38M with hx significant for alcohol dependence, alcohol abuse, and cirrhosis presented with alcoholintoxication and was admitted for alcohol withdrawal treatment. He had been at [facility] and [facility]hab after sustaining a hip fracture and was on a 7-day leave when he started drinking alcohol heavily (20- 30 beers daily). 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 Pt was started on CIWA protocol. Pt [...] 1 mg at 10/02/23 0803 influenza quadrivalent [id number] (FLULAVAL,FLUARIX,FLUZONE) 60 mcg (15 mcg x 4)/0.5 [...] mg 100 mg oral Daily Isidra Vega, [employer] HCM CONSULTANT 100 mg at 10/02/23 0803 Data Review: [...] :Name: LOVE DIAZ Study Date: 09/29/2023 Status: [facility] : : Patient Location: [address]^[id number]^MHHeight: 67 in : : Weight: 193 lbBP: [...] M.D., M.D., D.O. MW T: Report ID: [id number] Reading Location: [place] [address] Assessment and Plan: Alcohol dependence c/b withdrawal syndrome - patient from [facility] due [facility] hip fracture, was [...] time spent in any separately reportable services. [facility] * Amaris Alva, PT - 10/01/2023 3:57 PM CST Physical Therapy 10/01/23 3710 General Chart Reviewed Yes Session Type Evaluation [...] Care Facility Additional Comments Pt lives at [facility] Prior Function Level of [place] Independent with ADLs;Independent functional transfers;Independent with wheelchair;Dependent [...] endurance;Impaired balance;Decreased mobility;Pain Recommendation/Plan PT Recommendation/Plan (S) Skilled Nursing Care Patient at high risk for Falls;Readmission;Injury [...] End Date End Date PT LTG - [facility] [place] 1 10/01/23 10/15/23 -- Goal Details: Will transfer bed<>chair with ww and CGA of 1 and cues. Pt performs mobility NWB L LE due to pain. Goal Start Date Expected End Date End Date PT [facility] - [facility] [place] 2 10/01/23 10/15/23 -- Goal Details: Will perform R LE and L knee/ankle AROM ex with min cues Goal Start Date Expected End Date End Date PT [facility] 3 10/01/23 10/15/23 -- Goal Details: [...] status posted at bedsideand within medical record. [facility] * Donal Cabrera MD - 10/01/2023 3:57 PM CST GENERAL INTERNAL MEDICINE DAILY PROGRESS NOTE Admit Date: 09/28/2023 LOS: 2 Brief Hospital Course: 38M with hx significant for alcohol dependence, alcohol abuse, and cirrhosis presented with alcoholintoxication and was admitted for alcohol withdrawal treatment. He had been at [facility] Rehab after sustaining a hip fracture and was on a 7-day leave when he started drinking alcohol heavily (20- 30 beers daily). 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 Pt was started on CIWA protocol. Pt [...] 1 mg at 10/01/23 0825 influenza quadrivalent [id number] (FLULAVAL,FLUARIX,FLUZONE) 60 mcg (15 mcg x 4)/0.5 [...] 09/29/2023 Status: B : : Patient Location: [address]^[id number]^MHHeight: 67 in : : Weight: 193 lbBP: [...] M.D..O. Kiran Stacy M.D. T: Report ID: [id number] Reading Location: [id number] Assessment and Plan: Alcohol dependence c/b withdrawal syndrome - patient from [facility] due [facility] fracture, was [...] time spent in any separately reportable services. [facility] * Sheridan Zheng RN - 10/01/2023 2:49 PM CST Care Management Weekly Progression of Care Review Pt originally admitted for Alcohol withdrawal syndrome with complication (HCC) [F10.934] PCP: Major Dotson MD Current Plan of Care Includes: CIWA PT/OT Recommendations: to be seen still. He indicated his hip fx was recent and he was at [facility] for rehab but it looks like the fx was a year ago and he had been at [facility] under LTC. Barriers to Discharge: CIWA Anticipate Discharge Plan/Needs: [facility] for [facility] [place] ([facility] )[facility] will not take him back Expected Discharge Date: Wednesday Sheridan Zheng RN 10/01/2023 2:49 PM [facility] * Linda Fang, OT - 10/01/2023 1:16 PM CST Occupational Therapy 10/01/23 1316 General Chart Reviewed Yes Session Type Evaluation OT Received On 10/01/23 Safe Environment Arm band checked;Patient found in supine;Gait belt utilized for all out of bed mobility Subjective Agreeable to Therapy Subjective Comment pt reports that he has been a resident at [facility] for since his Hip fx in 2021. [...] IV Home Living Additional Comments Resident at [facility]. Has a ww and manual wc. Prior [...] of care initiated Recommendation/Plan OT Recommendation (S) Senior Living Facility Patient at high risk for Falls;Readmission;Injury [...] Date Expected End Date End Date OT [facility] - [facility] 1 10/01/23 10/08/23 -- Goal Details: 1) LE ADL SBA/MIN ASSIST WITH AE PRN. Goal Start Date Expected End Date End Date OT [facility] - [facility] [place] 2 10/01/23 10/08/23 -- Goal Details: 2) FUNCTIONAL MOBILITY TO/FROM BATHROOM AND ALL ASPECTS TOILETING MODIFIED INDEP WITHDME. Goal Start Date Expected End Date End Date OT [facility] - [facility] [place] 3 10/01/23 10/08/23 -- Goal Details: 3) STAND AT SINK X4 MIN FOR ADL WITH GOOD BALANCE. Goal Start Date Expected End Date End Date OT [facility] - [facility] [place] 4 10/01/23 10/08/23 -- [...] needed due to weakness or equipment management. [facility] * Javy Chung, CREDIT RISK MANAGER - 10/01/2023 10:43 AM CST I spoke to the membership administrator (Lidia) at [facility] to ensure that they could accept if d/c tomorrow. She said that she is waiting to hear from corporate re: that. She said that he wasn't actually on a 7 day leave but had d/c ama and was having gallons of liquor delivered to himself at the facility via door dash. I am sending out more referrals. [facility] * Jazmín Leonardo - 09/30/2023 3:57 PM CST PRS helped pt get enrolled in [place]. PT is to call in on Wednesday at 1pm. PRS gave pt a paper with all information needed. Jazmín Leonardo Peer Flume Ride Operator Medical Stabilization [phone] [facility] * Jazmín Leonardo - 09/30/2023 2:17 PM CST PRS met with pt to discuss outpatient Alcohol Use Disorder/ AUD treatment. PT stated that he would like to do outpatient but doesn't know if he could since he will [facility]. PRS explained to PT that she called and confirmed with facility that they would get pt to and from appts. PRS discussed [place] with pt and pt was agreeable. PRS cannot set up appt until PThas a d/c date. PRS will follow up with pt daily until d/c is known and then PRS will get pt set upwith an outpatient appt through [place]. PRS will add [email or web address] information to AVS. Jazmín Leonardo Peer Flume Ride Operator Medical Stabilization [phone] [facility] * Donal Cabrera MD - 09/30/2023 10:49 AM CST GENERAL INTERNAL MEDICINE DAILY PROGRESS NOTE Admit Date: 09/28/2023 LOS: 1 Brief Hospital Course: 38M with hx significant for alcohol dependence, alcohol abuse, and cirrhosis presented with alcoholintoxication and was admitted for alcohol withdrawal treatment. He had been at [facility] after sustaining a hip fracture and was on a 7-day leave when he started drinking alcohol heavily (20- 30 beers daily). 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 Pt was started on CIWA protocol. Pt [...] 1 mg at 09/30/23 0919 influenza quadrivalent [id number] (FLULAVAL,FLUARIX,FLUZONE) 60 mcg (15 mcg x 4)/0.5 [...] tablet 40 mg 40 mg oral BID oDnal Cabrera MD 40 mg at 09/30/23 0918 [...] 09/29/2023 Status: B : : Patient Location: [facility]^[id number]^MHHeight: 67 in : : Weight: 193 lbBP: [...] Jade M.D., Sid.O. MW T: Report ID: [id number] Reading Location: [place] [address] Assessment and Plan: Alcohol dependence c/b withdrawal syndrome - patient from [facility] due to left hip fracture, was [...] time spent in any separately reportable services. [facility] * Jazmín Leonardo - 09/30/2023 9:51 AM CST Peer Flume Ride Operator- PRS consulted for Alcohol Use Disorder-AUD/ETOH. PRS went to meet with PTto discuss outpatient treatment and resources. PT stated that he wanted PRS to meet him at his facility [facility] once a week and to [...] to followup this afternoon. Jazmín Leonardo, Peer Flume Ride Operator Medical Stabilization [phone] [facility] * Zo Campbell, [facility] - 09/29/2023 11:35 AM CST Pharmacy Medication Reconciliation Note Patient Love Diaz is a 38 y.o. male who presents to [facility] 2 CTR-[id number]. The prior to admission home medication list [...] Confirmed medications against med list provided by [facility] Per facility RN patient has resided there since 05-28-22. Patient presently on JOY starting approximately 09-21-23 set to end and with medications(minus tramadol) to last through 09-24-23. Sources of information for this medication reconciliation include: care facility and medication list Haresh Lambert CPhT 09/29/2023 11:12 AM Pharmacist reviewed patient's medication history as completed by dental lab technician and verified accuracy and completeness. Documentation updated accordingly. Zo Campbell RPh 09/29/2023 11:35 AM [facility] * Kareem Blancas - 09/29/2023 9:41 AM CST Pt did not indicate a desire for spiritual support. 09/29/23 0900 Time Spent Start Time 0941 Patient Spiritual Assessment Spirituality Assessed Yes Latter-Day Affiliation Yarsanism Clinical Encounter Type Visited With Patient Response Type Routine visit [facility] * Javy Chung, CREDIT RISK MANAGER - 09/29/2023 9:14 AM CST Went to get some information from the pt re: residence, and if nursing facility, what he was there for. He was at [facility] but was out on a 7 day therapeutic leave , during whichhe drank heavily. Was there for left hip fx and has walker in room. Said he has excruciating pain with walking. Reports that he doesn't do drugs but drinks and smokes. Plans to go back to [facility] at d/c. Reports that the plan was to return on Wednesday. I asked if he would be interested in speaking with our medical stabilization team re: drinking issues. He said yes but requested not today. Feels terrible, but can talk to them tomorrow. Will contact [facility] and the med. Stab. Team. [facility] * Manuelito Hannah MD - 09/29/2023 1:38 [...] accepted telemetry admission Patient not seen by herbicide service sales representative team. Full H&P to follow with daytime hospitalist. Holding orders placed based on ED sign-out and chart review. - Manuelito Hannah MD [facility] documented in this encounter H&P Notes * Isidra Vega NP - 09/29/2023 9:12 AM CST Images from the original note were not included. History & Physical Date of Service: 09/29/2023 Primary Care Provider: Major Dotson MD [phone] CHIEF COMPLAINT: Presents to the ED with a chief complaint of alcohol withdrawal. HPI: Patient is a 38 y.o. male with a PMHx significant for alcoholism and cirrhosis. Patient presents tot emergency department with alcohol withdrawal. Patient had been at [facility] and rehab but was on a 7 day leave when he began drinking heavily. Patient states he has been drinking 20-30 beers per day. He was at [facility] and rehab after sustaining a hip fracture. [...] Rolando Jade M.D., Sid.O. T: Report ID: [id number] Reading Location: [id number] ASSESSMENT/PLAN: Principal Problem: Alcohol withdrawal syndrome with complication (HCC) Active Problems: Hepatic cirrhosis (HCC) Hyponatremia Resolved Problems: No resolved hospital problems. Alcohol withdrawal syndrome - patient from [facility] due to left hip fracture, was [...] reportable services. Complexity: Moderate Voice recognition software [email or web address] Direct may have been used to dictate and transcribe this document. [employer] variances may occur. Despite proofreading, typographical errors may occur. Isidra Vega AGACNP-BC 09/29/2023 9:12 AM For patients or family members viewing this note through [facility] Consultt: This note was written as a communication [...] Donal Cabrera MD at 09/29/2023 6:10 PM [facility] documented in this encounter Consult Notes * [...] with alcohol withdrawal. Patient had been at [facility] and rehab but was on a7 day leave when he began drinking heavily. Patient states he has been drinking 20-30 beers per day. He was at [facility] and rehab after sustaining a hip fracture. [...] Daily Continuous Infusions: PRN Meds: influenza quadrivalent [id number] LORazepam OR LORazepam OR LORazepam OR LORazepam OR LORazepam OR LORazepam naloxone nicotine oxyCODONE polyethylene glycol ramelteon Recent Labs Lab Units 09/29/23 0537 SODIUM mmol/L 134* POTASSIUM PLASMA mmol/L 3.4 CHLORIDE mmol/L 99 CO2 mmol/L 22 BUN SERUM mg/dL 10 CREATININE mg/dL 0.60* TWA-OHZ-COZRUFF mL/min/1.73 m2 126 CALCIUM mg/dL 8.2* ALBUMIN [...] Factor: 1925 Equation Chosen to Use by RD:DodsonSt Vacaco Activity Factor: 1.1 Weight Used for Equation Calculations (RD Determined): 87.6 kg(193 lb 2 oz) . Total Protein Estimated Needs (gm): 80.52 Protein Needs Based on g/k.2 Type of Weight Used for Estimated Protein : [place] Total Fluid Estimated Needs: 2012 Fluid Needs Based on : 30 ml/kg Type of Weight Used for EstimatedFluid Needs: [place] Dietary Orders (From admission, onward) Start Ordered [...] . Reports he was eating well at [facility] but has been eating poorly and [...] and drink water throughout the day. Call [phone] to speak with a dietitian about any diet related concerns. Additional resources are available online from the Academy of Nutrition and Dietetics at www.eatright.org Yuk[address] RD [facility] documented in this encounter Nursing Notes * Maya Lou RN - 10/05/2023 1:05 PM CST Patient given discharge instructions and questions answered. Report called to [facility]. All personal belongings gathered and sent with patient. Discharged via transport van. [facility] * Yasir Hernandez Jr., RN - 10/02/2023 6:30 AM CST This RN agrees with assessments and charting of the MENTAL HEALTH CONSULTANT this shift unless otherwise noted in the chart. [facility] * Isabel Grewal RN - 10/01/2023 7:38 AM CST This RN agrees with assessments and charting of the MENTAL HEALTH CONSULTANT this shift unless otherwise noted in the chart. [facility] documented in this encounter ED Notes * [...] Final diagnoses: None Mansoor Valdes MD 09/28/232315 [facility] * Geo Resendiz RN - 09/28/2023 6:33 PM CST Pt c/o CP since this morning. Pt reports drinking heavy for 7 days. Pt has hx liver failure. AOx4. [facility] documented in this encounter Miscellaneous Notes * [...] improve to fullest extent possible Outcome: Progressing [facility] * Plan of Jovita - Maya Lou, [...] VSS. Patient is resting comfortably in chair. [facility] * Plan of Care - Sharla Castellon [...] by Sharla Castellon, RN Outcome: Progressing 10/03/2023 [facility] by Sharla Castellon RN Outcome: Progressing Goal: Will remain free from injury from falls 10/03/2023 [facility] by Sharla Castellon RN Outcome: Progressing 10/03/2023 [facility] by Sharla Castellon, RN Outcome: Progressing Goal: Will remain free from falls and injury in home environment 10/03/2023 [facility] by Sharla Castellon, RN Outcome: Progressing 10/03/2023 [facility] by Sharla Castellon RN Outcome: Progressing Problem: Lack of Knowledge: Goal: Knowledge on safety and abstaining from self-injurious behavior will increase 10/03/2023 [facility] by Sharla Castellon, RN Outcome: Progressing 10/03/2023 [facility] by Sharla Castellon RN Outcome: Progressing Goal: Knowledge of therapies/resources will increase 10/03/2023 [facility] by Sharla Castellon RN Outcome: Progressing 10/03/2023 [facility] by Sharla Castellon RN Outcome: Progressing Problem: Health Behavior: Goal: Ability to manage health-related needs will improve 10/03/20231352 by Sharla Castellon RN Outcome: Progressing 10/03/2023 [facility] by Sharla Castellon RN Outcome: Progressing Problem: Low Risk for Self-Injurious Behavior: Goal: Ability to remain free from injury will improve Description: (Low Risk) 10/03/2023 [facility] by Sharla Castellon RN Outcome: Progressing 10/03/2023 [facility] by Sharla Castellon RN Outcome: Progressing Problem: Lack of Knowledge: Goal: Knowledge of disease or condition will improve 10/03/2023 [facility] by Sharla Castellon RN Outcome: Progressing 10/03/2023 [facility] by Sharla Castellon RN Outcome: Progressing Goal: Understanding of discharge needs will improve 10/03/20231352 by Sharla Castellon, RN Outcome: Progressing 10/03/2023 [facility] by Sharla Castellon, RN Outcome: Progressing Problem: Health Behavior: Goal: Ability to identify changes in lifestyle to reduce recurrence of condition will improve 10/03/2023 [facility] by Sharla Castellon RN Outcome: Progressing 10/03/20231352 [...] by Sharla Castellon RN Outcome: Progressing 10/03/2023 [facility] by Sharla Castellon RN Outcome: [...] Castellon, Sharla B., RN Outcome: Progressing 10/03/2023 [facility] by Sharla Castellon RN Outcome: Progressing Problem: Nutritional: Goal: Nutritional status will be supported 10/03/2023 [facility] by Sharla Castellon RN Outcome: Progressing 10/03/20231352 by Sharla Castellon RN Outcome: Progressing Problem: Fluid Volume: Goal: Maintenance of adequate hydration will improve 10/03/2023 [facility] by Sharla Castellon RN Outcome: Progressing 10/03/2023 [facility] by Sharla Castellon RN Outcome: Progressing Problem: Health Behavior: Goal: Ability to state signs and symptoms to report to health care provider will improve 10/03/2023 [facility] by Sharla Castellon RN Outcome: Progressing 10/03/20231352 by Sharla Castellon RN Outcome: Progressing Problem: Physical Regulation: Goal: Complications related to the disease process, condition or treatment will be avoided or minimized 10/03/2023 [facility] by Sharla Castellon RN Outcome: Progressing 10/03/20231352 by Sharla Castellon RN Outcome: Progressing Goal: Ability to maintain clinical measurements within normal limits will improve 10/03/2023 [facility] by Sharla Castellon RN Outcome: Progressing 10/03/20231352 by Sharla Castellon RN Outcome: Progressing Problem: Sensory: Goal: Ability to identify factors that increase the pain will improve 10/03/2023 [facility] by Sharla Castellon RN Outcome: Progressing 10/03/2023 [facility] by Sharla Castellon RN Outcome: Progressing Goal: Ability to notify healthcare provider of pain before it becomes unmanageable or unbearable will improve 10/03/2023 [facility] by Sharla Castellon RN Outcome: Progressing 10/03/20231352 by Sharla Castellon RN Outcome: Progressing Goal: Pain level will decrease 10/03/20231352 by Sharla Castellon RN Outcome: Progressing 10/03/2023 [facility] by Sharla Castellon RN Outcome: Progressing Problem: Lack of Knowledge: Goal: Understanding of the prescribed diet will improve 10/03/2023 [facility] by Sharla Castellon RN Outcome: Progressing 10/03/2023 [facility] by Sharla Castellon RN Outcome: Progressing Goal: Understanding of the effects of medication on diet and food interactions will improve 10/03/2023 [facility] by Sharla Castellon RN Outcome: Progressing 10/03/2023 [facility] by Sharla Castellon RN Outcome: Progressing Problem: Health Behavior: Goal: Ability to identify and utilize available resources and services will improve 10/03/2023 [facility] by Sharla Castellon RN Outcome: Progressing 10/03/2023 [facility] by Sharla Castellon RN Outcome: Progressing Problem: Nutritional: Goal: Consumption of the prescribed amount of daily calories will improve 10/03/2023 [facility] by Sharla Castellon RN Outcome: Progressing 10/03/2023 [facility] by Sharla Castellon RN Outcome: Progressing Goal: Demonstration of interest in eating will improve 10/03/2023 [facility] by Sharla Castellon RN Outcome: Progressing 10/03/2023 [facility] by Sharla Castellon RN Outcome: Progressing Problem: Physical Regulation: Goal: Achievement of adequate weight for body size and type will improve 10/03/20231352 by Sharla Castellon RN Outcome: Progressing 10/03/2023 [facility] by Sharla Castellon RN Outcome: Progressing Goal: Diagnostic test results will improve 10/03/2023 [facility] by Sharla Castellon RN Outcome: Progressing 10/03/2023 [facility] by Sharla Castellon RN Outcome: Progressing Goals: Clinical Goals for the Shift: Pain management Summary: VSS, free from falls, ambulated to bathroom with 2 assist and walker/gait belt and tolerated well, CIWA done accordingly, pain management, IVfluids, [facility] * Plan of Sharla Yates RN - [...] Goals for the Shift: Pain management Summary: [facility] * Plan of Jovita - Yasir Hernandez Jr., RN - 10/03/2023 1:05 AM [facility] Goals: Problem: Lack of Knowledge: Goal: Ability [...] breathing to improve lung expansion and oxygenation. [facility] * Plan of Jovita - Sharla Castellon [...] meds given for abdominal pain with relief, [facility] * Plan of Care - Angel Watson [...] improved his mobility. Will continue to monitor. [facility] * Plan of Care - Aicha Sarah RN - 10/01/2023 6:03 PM CST Goals: Clinical Goals for the Shift: Pain management Summary: Patients pain has been well controlled with pain medication today. Still feels distended and bloated. [facility] * ECIN Note - Javy Chung, [facility] - 10/01/2023 10:47 AM CST Patient Information: [...] of this type exist for this encounter. [facility] * Plan of Care - Angel Watson [...] on disease process. Will continue to monitor. [facility] * Plan of Care - Ericka Najera, [...] BM today. Afeb. No visitors at bedside. [facility] * Plan of Care - Ana M [...] Nutritional status will be supported Outcome: Progressing [facility] * Plan of Jovita - Emerald Clayton [...] Summary: Plan of care discussed with patient. [facility] * Initial Assessments - Sheridan Zheng RN - 09/29/2023 9:32 AM CST CM Initial Assessment Interview Note Information Obtained From: Patient (09/29/23927) Admission Source: ED Impression: alcohol withdrawal, CP Plan Includes: FCO, speak to peer recovery team, damir. He had been at [facility] for hip fx butwent out on leave for his birthday. He plans to return on DC, if they can accept. Referral pending.If they accept, they should be able to pick him up in their van. Primary Source of Transportation: Does the patient need discharge transport arranged?: Yes Has discharge transport been arranged?: No (09/29/23300) Health Insurance Coverage: [facility] Prescription Coverage: yes Pharmacy: No Pharmacies Listed Primary Care Provider: Major Dotson MD Prior to Admission: Functional Status: Minimal assist with ADLs Primary Caregiver: Facility staff Support System: Parent Home Care Services: No Durable Medical Equipment: Walker (wheeled) Living Arrangements: retirement Type of Residence: retirement Does patient wish to return to care [...] How often do you attend druze or restorationism services?: Never Do you belong to any [...] (09/29/23927) Patient expects to be Discharged to: Senior Living Facility, (09/29/23927) Sheridan Zheng RN Case Manager 09/29/2023 9:37 AM [facility] * Plan of Care - Desiree Walker RN - 09/29/2023 5:34 AM CST Goals: Clinical Goals for the Shift: VSS, safety Summary: [facility] * ED Re-evaluation Note - Miguelito James Jr., MD - 09/28/2023 11:15 PM [facility] ED Re-evaluation 11:15 p.m. patient report received [...] plan. Miguelito James Jr., MD 10/10/23 1206 [facility] documented in this encounter Plan of Treatment Not on file documented as of this encounter Procedures Procedure Name Priority Date/Time Associated Diagnosis Comments US RUQ IP Routine 10/04/2023 11:16 AM [facility] EGFR Routine 10/04/2023 4:43 AM [facility] DIFFERENTIAL AUTO Routine 10/04/2023 4:4 3 AM [facility] CBC WITH AUTO DIFFERENTIAL Routine 10/04/2023 4:43 AM [facility] HEPATIC FUNCTION PANEL Routine 10/04/2023 4:43 AM [facility] BASIC METABOLIC PANEL Routine 10/04/2023 4:43 AM [facility] XR ANKLE LEFT 3 OR MORE VIEWS IP Routine 10/03/2023 8:14 PM [facility] EGFR Routine 10/03/2023 2:29 AM [facility] DIFFERENTIAL AUTO Routine 10/03/2023 2:2 9 AM [facility] CBC WITH AUTO DIFFERENTIAL Routine 10/03/2023 2:29 AM [facility] HEPATIC FUNCTION PANEL Routine 10/03/2023 2:29 AM [facility] BASIC METABOLIC PANEL Routine 10/03/2023 2:29 AM [facility] EGFR Routine 10/02/2023 5:14 AM [facility] DIFFERENTIAL AUTO Routine 10/02/2023 5:1 4 AM [facility] CBC WITH AUTO DIFFERENTIAL Routine 10/02/2023 5:14 AM [facility] HEPATIC FUNCTION PANEL Routine 10/02/2023 5:14 AM [facility] BASIC METABOLIC PANEL Routine 10/02/2023 5:[address] [address] ABDOMEN PELVIS WO CONTRAST IP Routine 10/01/2023 4:23 PM [facility] EGFR Routine 10/01/2023 5:20 AM [facility] DIFFERENTIAL AUTO Routine 10/01/2023 5: 20 AM [facility] CBC WITH AUTO DIFFERENTIAL Routine 10/01/2023 5:20 AM [facility] HEPATIC FUNCTION PANEL Routine 10/01/2023 5:20 AM [facility] BASIC METABOLIC PANEL Routine 10/01/2023 5:20 AM [facility] POCT GLUCOSE DEVICE Routine 09/30/2023 9 :05 PM [facility] XR KUB IP Routine 09/30/2023 12:26 PM [facility] EGFR Routine 09/30/2023 6:13 AM [facility] DIFFERENTIAL AUTO Routine 09/30/2023 6:1 3 AM [facility] CBC WITH AUTO DIFFERENTIAL Routine 09/30/2023 6:13 AM [facility] PROTIME-INR Routine 09/30/2023 6:13 AM [facility] HEPATIC FUNCTION PANEL Routine 09/30/2023 6:13 AM [facility] BASIC METABOLIC PANEL Routine 09/30/2023 6:13 AM [facility] TRANSTHORACIC ECHO (TTE) COMPLETE W DOPPLER/CF WO CONTRAST Routine 09/29/2023 9:41 AM [facility] ECG 12-LEAD Routine 09/29/2023 7:20 AM [facility] INFLUENZA A/B, RSV, AND COVID-19 PCR Routine 09/29/2023 6:00 AM [facility] EGFR Routine 09/29/2023 5:37 AM [facility] CBC WITHOUT DIFFERENTIAL Routine 09/29/2023 5:37 AM [facility] PHOSPHORUS Routine 09/29/2023 5:37 AM [facility] MAGNESIUM Routine 09/29/2023 5:37 AM [facility] LIPASE Routine 09/29/2023 5:37 AM [facility] SALICYLATE LEVEL Routine 09/29/2023 5:37 AM [facility] COMPREHENSIVE METABOLIC PANEL Routine 09/29/2023 5:37 AM [facility] TROPONIN T HIGH-SENSITIVITY 6-HOUR Timed 09/29/2023 12:51 AM [facility] XR CHEST 1 VIEW ED 09/28/2023 11:32 PM [facility] TROPONIN T HIGH-SENSITIVITY 4-HR Timed 09/28/2023 10:30 PM [facility] TROPONIN T HIGH-SENSITIVITY 2-HOUR Timed 09/28/2023 9:02 PM [facility] ETHANOL STAT 09/28/2023 9:02 PM [facility] ACETAMINOPHEN LEVEL STAT 09/28/2023 9 :02 PM [facility] SALICYLATE LEVEL STAT 09/28/2023 9:02 PM [facility] URINALYSIS AND REFLEX TO MICROSCOPIC Routine 09/28/2023 7:30 PM [facility] DRUGS OF ABUSE SCREEN, URINE WITHOUT CONFIRMATION STAT 09/28/2023 7:29 PM [facility] TROPONIN T HIGH-SENSITIVITY SERIES (BASELINE, 2HR, 4HR, 6HR) STAT 09/28/2023 6:43 PM [facility] EGFR STAT 09/28/2023 6:43 PM [facility] DIFFERENTIAL AUTO STAT 09/28/2023 6:4 3 PM [facility] CBC WITH AUTO DIFFERENTIAL STAT 09/28/2023 6:43 PM [facility] ETHANOL STAT 09/28/2023 6:43 PM [facility] COMPREHENSIVE METABOLIC PANEL STAT 09/28/2023 6:43 PM [facility] ECG 12-LEAD STAT 09/28/2023 6:34 PM [facility] documented in this encounter Results * US RUQ (10/04/2023 11:16 AM [facility]) Anatomical Region Laterality Modality Abdomen N/A Ultrasound 10/04/2023 11:4 7 AM [facility] Narrative 10/04/2023 11:51 AM [facility] EXAM DESCRIPTION: ?? US RUQ REASON FOR [...] D: ??10/04/2023 11:51 AM T: Report ID: [id number] Reading Location: ??[id number] Procedure Note Naun Bonilla Jr., MD - [...] by Naun Bonilla M.D. T: Report ID: [id number] Reading Location: [place] [address] us Donal Cabrera MD [facility] US PROCEDURES Final Result * eGFR (10/04/2023 4:43 AM [facility]) eGFR 126 mL/min/1. 73 m2 SAMAN DUMONT [...] last reviewed 2021. Blood 10/04/2023 4:43 AM [facility] 10/04/2023 5:37 AM [facility] us Donal Cabrera MD LAB BLOOD ORDERAB LES Final Result [facility] [address] [facility] Department [place] [address] * (ABNORMAL) Differential, auto (10/04/2023 4:43 AM [facility]) Neutrophil abs 3.8 1.5 - 6.5 K/cumm [facility] Imm gran abs 0.1 0.0 - 0.1 K/cumm [facility] Lymphocyte abs 1.7 0.8 - 3.3 K/cumm [facility] Monocyte abs 1.3(H) 0.2 - 0.8 K/cumm [facility] Eosinophil abs 0.2 0.0 - 0.5 K/cumm [facility] Basophil abs 0.1 0.0 - 0.1 K/cumm [facility] Neutrophil pct 53.7 % [facility] Comment: Interpretive Data Percent cell count reference ranges are not reported, since discordance with absolute values may lead to misinterpretation of CBC data. Current Interpretive Data was last revised on 2018. Imm gran pct 1.3 % [facility] Comment: Interpretive Data Percent cell count reference ranges are not reported, since discordance with absolute values may lead to misinterpretation of CBC data. Current Interpretive Data was last revised on 2018. Lymphocyte pct 23.5 % [facility] Comment: Interpretive Data Percent cell count reference ranges are not reported, since discordance with absolute values may lead to misinterpretation of CBC data. Current Interpretive Data was last revised on 2018. Monocyte pct 17.6 % [facility] Comment: Interpretive Data Percent cell count [...] revised on 2018. Blood 10/04/2023 4:43 AM [facility] 10/04/2023 5:37 AM [facility] Donal Cabrera MD LAB BLOOD ORDERAB LES Final Result [facility] [address] [facility] Department [place] [address] * (ABNORMAL) CBC with auto differential (10/04/2023 4:43 AM [facility]) [facility] WBC 7.1 3.8 - 9.9 K/cumm SAMAN [...] SAMAN MPV 10.8 9.1 - 12.3 fL [facility] RBC 3.98(L) 4.30 - 5.80 M/cumm [facility] Comment: Interpretive Data A reference range for this assay has not been established for patients with an unknown legal sex. Please refer to the laboratory test catalog for established sex-specific reference intervals. Current interpretive data was last revised on 2023. MCV 95.5 81.3 - 96.4 fL [facility] MCH 32.9 27.1 - 33.3 pg [facility] MCHC 34.5 32.3 - 35.7 g/dL [facility] RDW CV 14.9 11.1 - 14.9 % [facility] RDW SD 48.6(H) 35.7 - 48.1 fL [facility] NRBC abs 0.00 0.00 - 0.01 K/cumm [facility] Blood 10/04/2023 4:43 AM [facility] 10/04/2023 5:37 AM [facility] Donal Cabrera MD LAB BLOOD ORDERAB LES Final Result Performing Organization Address City/[facility] Co de Phone Number [facility] [address] [facility] Department [place] [address] * (ABNORMAL) Hepatic function panel (10/04/2023 4:43 AM [facility]) [facility] Bilirubin, total 0.3 0.1 - 1.2 mg/dL [facility] Bilirubin, direct <0.2 0.1 - 0.3 mg/dL [facility] Protein, pl 6.2(L) 6.5 - 8.5 g/dL [facility] Albumin 3.4(L) 3.5 - 5.0 g/dL [facility] Alk phos 83 40 - 130 Units/L [facility] ALT 37 7 - 55 Units/L [facility] AST 28 10 - 50 Units/L [facility] Blood 10/04/2023 4:43 AM [facility] 10/04/2023 5:37 AM [facility] Donal Cabrera MD LAB BLOOD ORDERAB LES Final Result Performing Organization Address City/[facility] Co de Phone Number SAMAN [address] [facility] [place] [address] * (ABNORMAL) Basic metabolic panel (10/04/2023 4:43 AM [facility]) Sodium 138 135 - 145 mmol/L [facility] Potassium, pl 3.7 3.3 - 4.9 mmol/L [facility] Chloride 104 97 - 110 mmol/L [facility] CO2 24 22 - 32 mmol/L [facility] Anion gap 10 2 - 15 mmol/L [facility] BUN 10 6 - 25 mg/dL [facility] Creatinine 0.60(L) 0.80 - 1.30 mg/dL [facility] Glucose 92 70 - 199 mg/dL [facility] Comment: Interpretive Data Fasting glucose >/= [...] 2022. Calcium 8.9 8.5 - 10.3 mg/dL [facility] Blood 10/04/2023 4:43 AM [facility] 10/04/2023 5:37 AM [facility] us Donal Cabrera MD LAB BLOOD ORDERAB LES Final Result Performing Organization Address [facility] Co de Phone Number [facility] [address] [facility] [place] [address] * XR Ankle Left 3 or More Views (10/03/2023 8:14 PM [facility]) Anatomical Region Laterality Modality Lower Extremities, Ankle Left Compute d Radiography 10/03/2023 9:15 PM [facility] Narrative 10/03/2023 9:15 PM [facility] EXAM DESCRIPTION: XR ANKLE LEFT 3 OR [...] D: ??10/03/2023 9:15 PM T: Report ID: [id number] Reading Location: ??[id number] Procedure Note Rolando Jade MD - 10/03/2023 [...] D.O. Kiran Stacy M.D. T: Report ID: [id number] Reading Location: [place] [address] Donal Cabrera MD IMG XR PROCEDURES Final Result * eGFR (10/03/2023 2:29 AM [facility]) Pathologist [facility] eGFR 126 mL/min/1. 73 m2 SAMAN DUMONT [...] last reviewed 2021. Blood 10/03/2023 2:29 AM [facility] 10/03/2023 2:53 AM [facility] us Donal Cabrera MD LAB BLOOD ORDERAB LES Final Result [facility] [address] [facility] Department [place] [address] * (ABNORMAL) Differential, auto (10/03/2023 2:29 AM [facility]) Pathologist [facility] Neutrophil abs 3.8 1.5 - 6.5 K/cumm [facility] Imm gran abs 0.1 0.0 - 0.1 K/cumm [facility] Lymphocyte abs 1.5 0.8 - 3.3 K/cumm [facility] Monocyte abs 0.9(H) 0.2 - 0.8 K/cumm [facility] Eosinophil abs 0.2 0.0 - 0.5 K/cumm [facility] Basophil abs 0.1 0.0 - 0.1 K/cumm [facility] Neutrophil pct 58.9 % [facility] [facility] Comment: Interpretive Data Percent cell count reference ranges are not reported, since discordance with absolute values may lead to misinterpretation of CBC data. Current Interpretive Data was last revised on 2018. Imm gran pct 0.8 % [facility] Comment: Interpretive Data Percent cell count [...] revised on 2018. Basophil pct 0.8 % [facility] Comment: Interpretive Data Percent cell count reference ranges are not reported, since discordance with absolute values may lead to misinterpretation of CBC data. Current Interpretive Data was last revised on 2018. Blood 10/03/2023 2:29 AM [facility] 10/03/2023 2:53 AM [facility] Donal Cabrera MD LAB BLOOD ORDERAB LES Final Result [facility] [address] [facility] Department [place] [address] * (ABNORMAL) CBC with auto differential (10/03/2023 2:29 AM [facility]) WBC 6.5 3.8 - 9.9 K/cumm [facility] Hgb 12.9(L) 13.0 - 17.5 g/dL [facility] Comment: Interpretive Data A reference range for this assay has not been established for patients with an unknown legal sex. Please refer to the laboratory test catalog for established sex-specific reference intervals. Current interpretive data was last revised on 2023. Hct 38.3(L) 38.9 - 50.3 % [facility] Comment: Interpretive Data A reference range for this assay has not been established for patients with an unknown legal sex. Please refer to the laboratory test catalog for established sex-specific reference intervals. Current interpretive data was last revised on 2023. Plt 148(L) 150 - 400 K/cumm [facility] MPV 9.9 9.1 - 12.3 fL [facility] RBC 4.02(L) 4.30 - 5.80 M/cumm [facility] Comment: Interpretive Data A reference range for this assay has not been established for patients with an unknown legal sex. Please refer to the laboratory test catalog for established sex-specific reference intervals. Current interpretive data was last revised on 2023. MCV 95.3 81.3 - 96.4 fL [facility] MCH 32.1 27.1 - 33.3 pg [facility] MCHC 33.7 32.3 - 35.7 g/dL [facility] RDW CV 14.6 11.1 - 14.9 % [facility] RDW SD 46.9 35.7 - 48.1 fL [facility] NRBC abs 0.00 0.00 - 0.01 K/cumm [facility] Blood 10/03/2023 2:29 AM [facility] 10/03/2023 2:53 AM [facility] Donal Cabrera MD LAB BLOOD ORDERAB LES Final Result [place] [id number] [facility] Department [place] [address] * (ABNORMAL) Hepatic function panel (10/03/2023 2:29 AM [facility]) Pathologist [facility] Bilirubin, total 0.4 0.1 - 1.2 mg/dL [facility] Bilirubin, direct <0.2 0.1 - 0.3 mg/dL [facility] Protein, pl 6.3(L) 6.5 - 8.5 g/dL [facility] Albumin 3.3(L) 3.5 - 5.0 g/dL [facility] Alk phos 79 40 - 130 Units/L [facility] ALT 39 7 - 55 Units/L [facility] AST 31 10 - 50 Units/L [facility] Blood 10/03/2023 2:29 AM [facility] 10/03/2023 2:53 AM [facility] Donal Cabrera MD LAB BLOOD ORDERAB LES Final Result Performing Organization Address City/[facility]/ZIP Co de Phone Number SAMAN [address] [facility] Department [place] [address] * (ABNORMAL) Basic metabolic panel (10/03/2023 2:29 AM [facility]) Pathologist [facility] Sodium 138 135 - 145 mmol/L [facility] Potassium, pl 3.9 3.3 - 4.9 mmol/L [facility] Chloride 103 97 - 110 mmol/L [facility] CO2 26 22 - 32 mmol/L [facility] Anion gap 9 2 - 15 mmol/L [facility] BUN 8 6 - 25 mg/dL [facility] Creatinine 0.60(L) 0.80 - 1.30 mg/dL [facility] Glucose 105 70 - 199 mg/dL [facility] Comment: Interpretive Data Fasting glucose >/= [...] 2022. Calcium 9.1 8.5 - 10.3 mg/dL [facility] Blood 10/03/2023 2:29 AM [facility] 10/03/2023 2:53 AM [facility] Donal Cabrera MD LAB BLOOD ORDERAB LES Final Result Performing Organization Address City/[facility]/ZIP Co de Phone Number SAMAN [address] [facility] Department [place] [address] * eGFR (10/02/2023 5:14 AM [facility]) eGFR 126 mL/min/1. 73 m2 [facility] Comment: [...] last reviewed 2021. Blood 10/02/2023 5:14 AM [facility] 10/02/2023 5:28 AM [facility] us Donal Cabrera MD LAB BLOOD ORDERAB LES Final Result [facility] [address] [facility] Department [place] [address] * (ABNORMAL) Differential, auto (10/02/2023 5:14 AM [facility]) Pathologist [facility] Neutrophil abs 3.9 1.5 - 6.5 K/cumm [facility] Imm gran abs 0.1 0.0 - 0.1 K/cumm [facility] Lymphocyte abs 1.5 0.8 - 3.3 K/cumm [facility] Monocyte abs 0.9(H) 0.2 - 0.8 K/cumm [facility] Eosinophil abs 0.2 0.0 - 0.5 K/cumm [facility] Basophil abs 0.1 0.0 - 0.1 K/cumm [facility] Neutrophil pct 58.8 % [facility] Comment: Interpretive Data Percent cell count reference ranges are not reported, since discordance with absolute values may lead to misinterpretation of CBC data. Current Interpretive Data was last revised on 2018. Imm gran pct 0.9 % [facility] Comment: Interpretive Data Percent cell count reference ranges are not reported, since discordance with absolute values may lead to misinterpretation of CBC data. Current Interpretive Data was last revised on 2018. Lymphocyte pct 22.5 % [facility] Comment: Interpretive Data Percent cell count reference ranges are not reported, since discordance with absolute values may lead to misinterpretation of CBC data. Current Interpretive Data was last revised on 2018. Monocyte pct 14.0 % [facility] Comment: Interpretive Data Percent cell count reference ranges are not reported, since discordance with absolute values may lead to misinterpretation of CBC data. Current Interpretive Data was last revised on 2018. Eosinophil pct 3.0 % [facility] Comment: Interpretive Data Percent cell count reference ranges are not reported, since discordance with absolute values may lead to misinterpretation of CBC data. Current Interpretive Data was last revised on 2018. Basophil pct 0.8 % [facility] Comment: Interpretive Data Percent cell count reference ranges are not reported, since discordance with absolute values may lead to misinterpretation of CBC data. Current Interpretive Data was last revised on 2018. Blood 10/02/2023 5:14 AM [facility] 10/02/2023 5:28 AM [facility] us Donal Cabrera MD LAB BLOOD ORDERAB LES Final Result [facility] [address] [facility] Department [place] [address] * (ABNORMAL) CBC with auto differential (10/02/2023 5:14 AM [facility]) [facility] WBC 6.6 3.8 - 9.9 K/cumm [facility] Hgb 13.0 13.0 - 17.5 g/dL [facility] Comment: Interpretive Data A reference range for this assay has not been established for patients with an unknown legal sex. Please refer to the laboratory test catalog for established sex-specific reference intervals. Current interpretive data was last revised on 2023. Hct 37.2(L) 38.9 - 50.3 % [facility] Comment: Interpretive Data A reference range for this assay has not been established for patients with an unknown legal sex. Please refer to the laboratory test catalog for established sex-specific reference intervals. Current interpretive data was last revised on 2023. Plt 158 150 - 400 K/cumm [facility] MPV 10.1 9.1 - 12.3 fL [facility] RBC 3.93(L) 4.30 - 5.80 M/cumm [facility] Comment: Interpretive Data A reference range for this assay has not been established for patients with an unknown legal sex. Please refer to the laboratory test catalog for established sex-specific reference intervals. Current interpretive data was last revised on 2023. MCV 94.7 81.3 - 96.4 fL [facility] MCH 33.1 27.1 - 33.3 pg [facility] MCHC 34.9 32.3 - 35.7 g/dL [facility] RDW CV 14.3 11.1 - 14.9 % [facility] RDW SD 45.7 35.7 - 48.1 fL [facility] NRBC abs 0.00 0.00 - 0.01 K/cumm [facility] Blood 10/02/2023 5:14 AM [facility] 10/02/2023 5:28 AM [facility] us Donal Cabrera MD LAB BLOOD ORDERAB LES Final Result [facility] [address] [facility] Department [place] [address] * (ABNORMAL) Hepatic function panel (10/02/2023 5:14 AM [facility]) [facility] Bilirubin, total 0.5 0.1 - 1.2 mg/dL [facility] Bilirubin, direct <0.2 0.1 - 0.3 mg/dL [facility] Protein, pl 6.3(L) 6.5 - 8.5 g/dL [facility] Albumin 3.3(L) 3.5 - 5.0 g/dL [facility] Alk phos 77 40 - 130 Units/L [facility] ALT 42 7 - 55 Units/L [facility] AST 36 10 - 50 Units/L [facility] Blood 10/02/2023 5:14 AM [facility] 10/02/2023 5:28 AM [facility] us Donal Cabrera MD LAB BLOOD ORDERAB LES Final Result [facility] [address] [facility] Department [place] [address] * (ABNORMAL) Basic metabolic panel (10/02/2023 5:14 AM [facility]) [facility] Sodium 139 135 - 145 mmol/L [facility] Potassium, pl 4.0 3.3 - 4.9 mmol/L [facility] Chloride 105 97 - 110 mmol/L [facility] CO2 26 22 - 32 mmol/L [facility] Anion gap 8 2 - 15 mmol/L [facility] BUN 8 6 - 25 mg/dL [facility] Creatinine 0.60(L) 0.80 - 1.30 mg/dL [facility] Glucose 98 70 - 199 mg/dL [facility] Comment: Interpretive Data Fasting glucose >/= [...] 2022. Calcium 8.7 8.5 - 10.3 mg/dL [facility] Blood 10/02/2023 5:14 AM [facility] 10/02/2023 5:28 AM [facility] us Donal Cabrera MD LAB BLOOD ORDERAB LES Final Result [facility] [address] [facility] Department [place] [address] * CT Abdomen Pelvis WO Contrast (10/01/2023 4:23 PM [facility]) Anatomical Region Laterality Modality Body N/A Computed Tomogra phy 10/01/2023 5:01 PM [facility] Narrative 10/01/2023 5:05 PM [facility] EXAM DESCRIPTION: ?? CT ABDOMEN PELVIS WO CONTRAST REASON FOR STUDY: ?? Abdominal pain, acute, nonlocalized ?? Abdominal pain. ??38M with hx significant for alcohol dependence, alcohol abuse, and cirrhosis presented with alcohol intoxication and was admitted for alcohol withdrawal treatment. He had been at [facility] after sustaining a hip ?? fracture and was on a 7-day leave when he started drinking alcohol heavily (20-30 beers daily). 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 Pt was started on CIWA protocol. Pt [...] D: ??10/01/2023 5:05 PM T: Report ID: [id number] Reading Location: ??[id number] Procedure Note Chun Hector MD - 10/01/2023 EXAM DESCRIPTION: CT ABDOMEN PELVIS WO CONTRAST REASON FOR STUDY: Abdominal pain, acute, nonlocalized Abdominal pain. 38M with hx significant for alcohol dependence, alcohol abuse, and cirrhosis presented with alcohol intoxication and was admittedfor alcohol withdrawal treatment. He had been at [facility] after sustaining a hip fracture and was on a 7-day leave when he started drinking alcohol heavily (20-30 beers daily). Last drink was one day [employer].Pt was started on CIWA protocol. Pt reported [...] signed by Chun ADAMS T: Report ID: [id number] Reading Location: [id number] us Donal Cabrera MD IMG CT PROCEDURES Final Result * eGFR (10/01/2023 5:20 AM [facility]) eGFR 126 mL/min/1. 73 m2 [facility] DUMONT [...] last reviewed 2021. Blood 10/01/2023 5:20 AM [facility] 10/01/2023 6:08 AM [facility] us Donal Cabrera MD LAB BLOOD ORDERAB LES Final Result [facility] [address] [facility] [place] [address] * Differential, auto (10/01/2023 5:20 AM [facility]) Pathologist [facility] Neutrophil abs 3.4 1.5 - 6.5 K/cumm [facility] Imm gran abs 0.0 0.0 - 0.1 K/cumm [facility] Lymphocyte abs 1.4 0.8 - 3.3 K/cumm [facility] Monocyte abs 0.7 0.2 - 0.8 K/cumm [facility] Eosinophil abs 0.2 0.0 - 0.5 K/cumm [facility] Basophil abs 0.1 0.0 - 0.1 K/cumm [facility] Neutrophil pct 58.9 % [facility] Comment: Interpretive Data Percent cell count reference ranges are not reported, since discordance with absolute values may lead to misinterpretation of CBC data. Current Interpretive Data was last revised on 2018. Imm gran pct 0.5 % [facility] Comment: Interpretive Data Percent cell count reference ranges are not reported, since discordance with absolute values may lead to misinterpretation of CBC data. Current Interpretive Data was last revised on 2018. Lymphocyte pct 23.7 % [facility] Comment: Interpretive Data Percent cell count reference ranges are not reported, since discordance with absolute values may lead to misinterpretation of CBC data. Current Interpretive Data was last revised on 2018. Monocyte pct 12.9 % [facility] Comment: Interpretive Data Percent cell count reference ranges are not reported, since discordance with absolute values may lead to misinterpretation of CBC data. Current Interpretive Data was last revised on 2018. Eosinophil pct 3.0 % [facility] Comment: Interpretive Data Percent cell count reference ranges are not reported, since discordance with absolute values may lead to misinterpretation of CBC data. Current Interpretive Data was last revised on 2018. Basophil pct 1.0 % [facility] Comment: Interpretive Data Percent cell count reference ranges are not reported, since discordance with absolute values may lead to misinterpretation of CBC data. Current Interpretive Data was last revised on 2018. Blood 10/01/2023 5:20 AM [facility] 10/01/2023 6:08 AM [facility] us Donal Cabrera MD LAB BLOOD ORDERAB LES Final Result [facility] [address] [facility] Department [place] [address] * (ABNORMAL) CBC with auto differential (10/01/2023 5:20 AM [facility]) [facility] WBC 5.7 3.8 - 9.9 K/cumm [facility] Hgb 12.5(L) 13.0 - 17.5 g/dL [facility] Comment: Interpretive Data A reference range for this assay has not been established for patients with an unknown legal sex. Please refer to the laboratory test catalog for established sex-specific reference intervals. Current interpretive data was last revised on 2023. Hct 35.8(L) 38.9 - 50.3 % [facility] Comment: Interpretive Data A reference range for this assay has not been established for patients with an unknown legal sex. Please refer to the laboratory test catalog for established sex-specific reference intervals. Current interpretive data was last revised on 2023. Plt 153 150 - 400 K/cumm [facility] MPV 10.5 9.1 - 12.3 fL [facility] RBC 3.83(L) 4.30 - 5.80 M/cumm [facility] Comment: Interpretive Data A reference range for this assay has not been established for patients with an unknown legal sex. Please refer to the laboratory test catalog for established sex-specific reference intervals. Current interpretive data was last revised on 2023. MCV 93.5 81.3 - 96.4 fL [facility] MCH 32.6 27.1 - 33.3 pg [facility] MCHC 34.9 32.3 - 35.7 g/dL [facility] RDW CV 13.7 11.1 - 14.9 % [facility] RDW SD 44.2 35.7 - 48.1 fL [facility] NRBC abs 0.00 0.00 - 0.01 K/cumm [facility] Blood 10/01/2023 5:20 AM [facility] 10/01/2023 6:08 AM [facility] Donal Cabrera MD LAB BLOOD ORDERAB LES Final Result Performing Organization Address [facility] de Phone Number SAMAN [address] [place] [address] * (ABNORMAL) Hepatic function panel (10/01/2023 5:20 AM [facility]) Pathologist [facility] Bilirubin, total 0.6 0.1 - 1.2 mg/dL [facility] Bilirubin, direct <0.2 0.1 - 0.3 mg/dL [facility] Protein, pl 6.3(L) 6.5 - 8.5 g/dL [facility] Albumin 3.2(L) 3.5 - 5.0 g/dL [facility] Alk phos 78 40 - 130 Units/L [facility] ALT 41 7 - 55 Units/L [facility] AST 39 10 - 50 Units/L [facility] Blood 10/01/2023 5:20 AM [facility] 10/01/2023 6:08 AM [facility] Donal Cabrera MD LAB BLOOD ORDERAB LES Final Result Performing Organization Address City/[facility] Co de Phone Number SAMAN [address] [place] [address] * (ABNORMAL) Basic metabolic panel (10/01/2023 5:20 AM [facility]) Pathologist [facility] Sodium 140 135 - 145 mmol/L [facility] Potassium, pl 3.7 3.3 - 4.9 mmol/L [facility] Chloride 105 97 - 110 mmol/L [facility] CO2 24 22 - 32 mmol/L [facility] Anion gap 11 2 - 15 mmol/L [facility] BUN 9 6 - 25 mg/dL [facility] Creatinine 0.60(L) 0.80 - 1.30 mg/dL [facility] Glucose 97 70 - 199 mg/dL [facility] Comment: Interpretive Data Fasting glucose >/= [...] Calcium 8.6 8.5 - 10.3 mg/dL [facility] Blood 10/01/2023 5:20 AM [facility] 10/01/2023 6:08 AM [facility] Donal Cabrera MD LAB BLOOD ORDERAB LES Final Result Performing Organization Address [facility] Co de Phone Number [address] [place] [address] * POCT glucose (09/30/2023 9:05 PM [facility]) [facility] Glucose, POC 119 70 - 199 mg/dL [facility] Glucose comment 1 Use This Result [facility] Glucose comment 2 RN/MD Notified [facility] Blood 09/30/2023 9:05 PM [facility] 09/30/2023 9:05 PM [facility] Donal Cabrera MD LAB POCT ORDERABL ES - DEVICE Final Result Performing Organization Address [facility] Co de Phone Number [address] [place] [address] * XR Kub (09/30/2023 12:26 PM [facility]) Anatomical Region Laterality Modality Body, Abdomen N/A Computed Radiogr aphy 09/30/2023 1:04 PM [facility] Narrative 09/30/2023 1:06 PM [facility] EXAM DESCRIPTION: ?? XR KUB REASON FOR [...] D: ??09/30/2023 1:06 PM T: Report ID: [id number] Reading Location: ??[id number] Procedure Note Chuckie Cornelius DO - 09/30/2023 [...] Chuckie Cornelius D.O. AP T: Report ID: [id number] Reading Location: [place] [address] Donal Cabrera MD IMG XR PROCEDURES Final Result * eGFR (09/30/2023 6:13 AM [facility]) eGFR 133 mL/min/1. 73 m2 SAMAN DUMONT [...] last reviewed 2021. Blood 09/30/2023 6:13 AM [facility] 09/30/2023 6:25 AM [facility] us Donal Cabrera MD LAB BLOOD ORDERAB LES Final Result [facility] [address] [facility] Department [place] [address] * Differential, auto (09/30/2023 6:13 AM [facility]) Neutrophil abs 4.6 1.5 - 6.5 K/cumm [facility] Imm gran abs 0.0 0.0 - 0.1 K/cumm [facility] Lymphocyte abs 1.2 0.8 - 3.3 K/cumm [facility] Monocyte abs 0.8 0.2 - 0.8 K/cumm [facility] Eosinophil abs 0.2 0.0 - 0.5 K/cumm [facility] Basophil abs 0.1 0.0 - 0.1 K/cumm [facility] Neutrophil pct 67.4 % [facility] Comment: Interpretive Data Percent cell count reference ranges are not reported, since discordance with absolute values may lead to misinterpretation of CBC data. Current Interpretive Data was last revised on 2018. Imm gran pct 0.4 % [facility] Comment: Interpretive Data Percent cell count reference ranges are not reported, since discordance with absolute values may lead to misinterpretation of CBC data. Current Interpretive Data was last revised on 2018. Lymphocyte pct 17.7 % [facility] Comment: Interpretive Data Percent cell count reference ranges are not reported, since discordance with absolute values may lead to misinterpretation of CBC data. Current Interpretive Data was last revised on 2018. Monocyte pct 11.3 % [facility] Comment: Interpretive Data Percent cell count reference ranges are not reported, since discordance with absolute values may lead to misinterpretation of CBC data. Current Interpretive Data was last revised on 2018. Eosinophil pct 2.5 % [facility] Comment: Interpretive Data Percent cell count reference ranges are not reported, since discordance with absolute values may lead to misinterpretation of CBC data. Current Interpretive Data was last revised on 2018. Basophil pct 0.7 % [facility] Comment: Interpretive Data Percent cell count reference ranges are not reported, since discordance with absolute values may lead to misinterpretation of CBC data. Current Interpretive Data was last revised on 2018. Blood 09/30/2023 6:13 AM [facility] 09/30/2023 6:25 AM [facility] us Donal Cabrera MD LAB BLOOD ORDERAB LES Final Result [facility] [address] [facility] Department [place] [address] * (ABNORMAL) CBC with auto differential (09/30/2023 6:13 AM [facility]) [facility] WBC 6.8 3.8 - 9.9 K/cumm [facility] Hgb 12.2(L) 13.0 - 17.5 g/dL [...] 2023. Plt 143(L) 150 - 400 K/cumm [facility] MPV 9.7 9.1 - 12.3 fL [facility] RBC 3.73(L) 4.30 - 5.80 M/cumm [facility] Comment: Interpretive Data A reference range for this assay has not been established for patients with an unknown legal sex. Please refer to the laboratory test catalog for established sex-specific reference intervals. Current interpretive data was last revised on 2023. MCV 93.6 81.3 - 96.4 fL [facility] MCH 32.7 27.1 - 33.3 pg [facility] MCHC 35.0 32.3 - 35.7 g/dL [facility] RDW CV 13.1 11.1 - 14.9 % [facility] RDW SD 43.8 35.7 - 48.1 fL [facility] NRBC abs 0.00 0.00 - 0.01 K/cumm [facility] Blood 09/30/2023 6:13 AM [facility] 09/30/2023 6:25 AM [facility] Donal Cabrera MD LAB BLOOD ORDERAB LES Final Result [facility] [address] [facility] Department of Laboratories [place], [place] [id number] * (ABNORMAL) Hepatic function panel (09/30/2023 6:13 AM [facility]) Pathologist [facility] Bilirubin, total 1.3(H) 0.1 - 1.2 mg/dL [facility] Bilirubin, direct 0.4(H) 0.1 - 0.3 mg/dL [facility] Protein, pl 5.9(L) 6.5 - 8.5 g/dL [facility] Albumin 3.3(L) 3.5 - 5.0 g/dL [facility] Alk phos 74 40 - 130 Units/L [facility] ALT 42 7 - 55 Units/L [facility] AST 47 10 - 50 Units/L [facility] Blood 09/30/2023 6:13 AM [facility] 09/30/2023 6:25 AM [facility] Donal Cabrera MD LAB BLOOD ORDERAB LES Final Result [facility] [address] [facility] Department [place] [address] * (ABNORMAL) Basic metabolic panel (09/30/2023 6:13 AM [facility]) [facility] Sodium 138 135 - 145 mmol/L [facility] Potassium, pl 3.3 3.3 - 4.9 mmol/L [facility] Chloride 103 97 - 110 mmol/L [facility] CO2 23 22 - 32 mmol/L [facility] Anion gap 12 2 - 15 mmol/L [facility] BUN 6 6 - 25 mg/dL [facility] Creatinine 0.50(L) 0.80 - 1.30 mg/dL [facility] Glucose 74 70 - 199 mg/dL [facility] Comment: Interpretive Data Fasting glucose >/= [...] 2022. Calcium 8.5 8.5 - 10.3 mg/dL [facility] Blood 09/30/2023 6:13 AM [facility] 09/30/2023 6:25 AM [facility] Donal Cabrera MD LAB BLOOD ORDERAB LES Final Result [facility] [address] [facility] Department [place] [address] * Protime-INR (09/30/2023 6:13 AM [facility]) Pathologist [facility] PT 14.6 12.0 - 14.6 sec [facility] INR 1.1 0.9 - 1.2 [facility] Comment: Ref Range High Interpretive data Oral anticoagulant therapeutic ranges: Venous thromboembolism prophylaxis or treatment: 2.0-3.0 CARDIOLOGY Standard range: 2.0-3.0 High-intensity range: 2.5-3.5 Refer to indication-specific guidelines for appropriate target ranges for prosthetic heart valve replacement. Current interpretive data was last revised on 2019. Blood 09/30/2023 6:13 AM [facility] 09/30/2023 6:25 AM [facility] us Donal Cabrera MD LAB BLOOD ORDERAB LES Final Result [facility] [address] [facility] Department [place] [address] * TRANSTHORACIC ECHO (TTE) COMPLETE W DOPPLER/CF WO CONTRAST (09/29/2023 9:41 AM [facility]) Anatomical Region Laterality Modality Ultrasound 09/29/2023 9:41 AM [facility] Narrative 09/29/2023 5:41 PM [facility] ? Adult Echocardiogram + ----- + :Name: LOVE DIAZ ??Study Date: 09/29/2023 ?Status: MHB ?: : ?Patient Location: [facility] CTR^[id number]^MHHeight: 67 in ?: : ?Weight: 193 lbBP: [...] Date: 09/29/2023Status: MHB : : Patient Location: [address]^[id number]^MHHeight: 67 in : : : 193 lbBP: [...] * ECG 12 lead (09/29/2023 7:20 AM [facility]) Ventricular Rate EKG/Min 99 BPM [facility] Atrial Rate 99 BPM [facility] WA-Interval (MSEC) 108 ms [facility] QRS-Interval (MSEC) 90 ms [facility] QT-Interval (MSEC) 362 ms [facility] QTc 464 ms [facility] P [place] 38 degrees [facility] R [place] -4 degrees [facility] T [place] 18 degrees [facility] Diagnosis Sinus rhythm with short WA possible inferior infarct Abnormal ECG When compared with ECG of 28-SEP-2023 18:34, Premature ventricular complexes are no longer Present Inferior infarct is now Present Confirmed by LEEANN GUZMAN M.D. ([id number]) on 09/30/2023 1:02:29 AM [facility] 09/29/2023 7:20 AM [facility] 09/30/2023 1:02 AM [facility] Manuelito Hannah MD ECG ORDERABLES Final Result [facility] * Influenza A/B, RSV, and COVID-19 PCR Nasopharyngeal (09/29/2023 6:00 AM [facility]) Pathologist [facility] COVID-19 RNA Negative Negative [facility] Influenza A RNA Negative Negative [facility] Influenza B RNA Negative Negative [facility] RSV RNA Negative Negative [facility] Comment: Interpretive data: This test is performed using the [employer] Xpert Xpress CoV-2/Flu/RSV plus assay. This is [...] revised 2021. Nasopharyngeal 09/29/2023 6: 00 AM [facility] 09/29/2023 6:20 AM [facility] Narrative [facility] - 09/29/2023 7:43 AM [facility] Is the Patient experiencing symptoms consistent with COVID?->Yes Date of Symptom Onset->09/29/23 Reason for testing?->Symptomatic Result [facility] Manuelito Hannah MD LAB MICROBIOLOGY - GE NERAL ORDERABLES Final Result [facility] [address] [facility] Department [place] [address] * eGFR (09/29/2023 5:37 AM [facility]) eGFR 126 mL/min/1. 73 m2 [facility] Comment: [...] last reviewed 2021. Blood 09/29/2023 5:37 AM [facility] 09/29/2023 6:27 AM [facility] us Manuelito Hannah MD LAB BLOOD ORDERABLES Final Result [facility] [address] [facility] Department [place] [address] * Lipase (09/29/2023 5:37 AM [facility]) Pathologist [facility] Lipase 64 10 - 99 Units/L [facility] Blood 09/29/2023 5:37 AM [facility] 09/29/2023 6:27 AM [facility] us Manuelito Hannah MD LAB BLOOD ORDERABLES Final Result Performing Organization Address City/[facility] Co de Phone Number [facility] [address] [address] * Salicylate level (09/29/2023 5:37 AM [facility]) [facility] Salicylate <1.0 <=1.0 mg/dL [facility] Comment: Interpretive Data Toxic: 30 mg/dL or greater. Current interpretive data was last revised 2023. Blood 09/29/2023 5:37 AM [facility] 09/29/2023 6:27 AM [facility] Manuelito Hannah MD LAB BLOOD ORDERABLES Final Result Performing Organization Address [facility] de Phone Number [facility] [address] [address] * (ABNORMAL) CBC without differential (09/29/2023 5:37 AM [facility]) [facility] WBC 8.4 3.8 - 9.9 K/cumm [facility] Hgb 12.7(L) 13.0 - 17.5 g/dL [facility] Comment: Interpretive Data A reference range for this assay has not been established for patients with an unknown legal sex. Please refer to the laboratory test catalog for established sex-specific reference intervals. Current interpretive data was last revised on 2023. Hct 36.2(L) 38.9 - 50.3 % [facility] Comment: Interpretive Data A reference range for this assay has not been established for patients with an unknown legal sex. Please refer to the laboratory test catalog for established sex-specific reference intervals. Current interpretive data was last revised on 2023. Plt 134(L) 150 - 400 K/cumm [facility] MPV 11.4 9.1 - 12.3 fL [facility] RBC 3.97(L) 4.30 - 5.80 M/cumm [facility] Comment: Interpretive Data A reference range for this assay has not been established for patients with an unknown legal sex. Please refer to the laboratory test catalog for established sex-specific reference intervals. Current interpretive data was last revised on 2023. MCV 91.2 81.3 - 96.4 fL [facility] MCH 32.0 27.1 - 33.3 pg [facility] MCHC 35.1 32.3 - 35.7 g/dL [facility] RDW CV 13.1 11.1 - 14.9 % [facility] RDW SD 42.7 35.7 - 48.1 fL [facility] NRBC abs 0.00 0.00 - 0.01 K/cumm [facility] Blood 09/29/2023 5:37 AM [facility] 09/29/2023 6:27 AM [facility] Manuelito Hannah MD LAB BLOOD ORDERABLES Final Result Performing Organization Address [facility] Co de Phone Number [address] [place] [address] * Phosphorus (09/29/2023 5:37 AM [facility]) Phosphorus, pl 3.2 2.3 - 4.5 mg/dL [facility] Blood 09/29/2023 5:37 AM [facility] 09/29/2023 6:27 AM [facility] Manuelito Hannah MD LAB BLOOD ORDERABLES Final Result Performing Organization Address [facility] Co de Phone Number [address] [place] [address] * Magnesium (09/29/2023 5:37 AM [facility]) Magnesium 1.9 1.4 - 2.5 mg/dL [facility] Blood 09/29/2023 5:37 AM [facility] 09/29/2023 6:27 AM [facility] Manuelito Hannah MD LAB BLOOD ORDERABLES Final Result Performing Organization Address City/[facility] Co de Phone Number [address] [place] [address] * (ABNORMAL) Comprehensive metabolic panel (09/29/2023 5:37 AM [facility]) Sodium 134(L) 135 - 145 mmol/L [facility] Potassium, pl 3.4 3.3 - 4.9 mmol/L [facility] Chloride 99 97 - 110 mmol/L [facility] CO2 22 22 - 32 mmol/L [facility] Anion gap 13 2 - 15 mmol/L [facility] BUN 10 6 - 25 mg/dL [facility] Creatinine 0.60(L) 0.80 - 1.30 mg/dL [facility] Glucose 75 70 - 199 mg/dL [facility] Comment: Interpretive Data Fasting glucose >/= [...] 2022. Calcium 8.2(L) 8.5 - 10.3 mg/dL [facility] Bilirubin, total 1.8(H) 0.1 - 1.2 mg/dL [facility] Protein, pl 7.0 6.5 - 8.5 g/dL [facility] Albumin 3.7 3.5 - 5.0 g/dL [facility] Alk phos 80 40 - 130 Units/L [facility] ALT 54 7 - 55 Units/L [facility] AST 69(H) 10 - 50 Units/L [facility] Blood 09/29/2023 5:37 AM [facility] 09/29/2023 6:27 AM [facility] us Manuelito Hannah MD LAB BLOOD ORDERABLES Final Result [facility] [address] [facility] Department [place] [address] * Troponin T high-sensitivity 6-hour (09/29/2023 12:51 AM [facility]) Trop T hs 8 <=22 ng/L [facility] Comment: Interpretive Data For further hscTnT resources including the diagnostic algorithm and an aid in interpretation, copy and paste this link: https://nrl.testcatalog.org/show/hsTrop Current Interpretive Data last revised 2020. Trop T hs delta 0 ng/L [facility] Trop T hs interp Insignificant [facility] Blood 09/29/2023 12:5 1 AM [facility] 09/29/2023 12:54 AM [facility] us Yuko Naik DO LAB BLOOD ORDERABLES Final Resu lt [facility] [address] [facility] Department [place] [address] * XR Chest 1 Vw Portable (09/28/2023 11:32 PM [facility]) Anatomical Region Laterality Modality Body, Chest N/A Computed Radiogr aphy 09/28/2023 11:3 5 PM [facility] Narrative 09/28/2023 11:37 PM [facility] EXAM DESCRIPTION: XR CHEST 1 VIEW REASON [...] D: ??09/28/2023 11:37 PM T: Report ID: [id number] Reading Location: ??[id number] Procedure Note Rolando Jade MD - 09/28/2023 [...] Rolando Jade M.D., Sid.O. T: Report ID: [id number] Reading Location: [place] [address] Mansoor Valdes MD IMG XR PROCEDURES Fin al Result * Troponin T high-sensitivity 4-hour (09/28/2023 10:30 PM [facility]) Pathologist [facility] Trop T hs 8 <=22 ng/L [facility] Comment: Interpretive Data For further hscTnT resources including the diagnostic algorithm and an aid in interpretation, copy and paste this link: https://nrl.testcatalog.org/show/hsTrop Current Interpretive Data last revised 2020. Trop T hs delta 0 ng/L [facility] Trop T hs interp Insignificant [facility] Blood 09/28/2023 10:3 0 PM [facility] 09/28/2023 10:32 PM [facility] Yuko Naik DO LAB BLOOD ORDERABLES Final Resu lt [facility] [address] [facility] Department [place] [address] * (ABNORMAL) Salicylate level (09/28/2023 9:02 PM [facility]) Salicylate 1.3(H) <=1.0 mg/dL [facility] Comment: Interpretive Data Toxic: 30 mg/dL or greater. Current interpretive data was last revised 2023. Blood 09/28/2023 9:02 PM [facility] 09/28/2023 9:07 PM [facility] us Mansoor Valdes MD LAB BLOOD ORDERABLES Final Result Performing Organization Address [facility] de Phone Number [address] [address] * (ABNORMAL) Ethanol (09/28/2023 9:02 PM [facility]) Ethanol 40(H) <=10 mg/dL [facility] Comment: Interpretive Data Legal limit of intoxication > or = 80 mg/dL Levels > or = 400 mg/dL are potentially TOXIC. Current interpretive data was last revised on 2018. Blood 09/28/2023 9:02 PM [facility] 09/28/2023 9:07 PM [facility] us Mansoor Valdes MD LAB BLOOD ORDERABLES Final Result Performing Organization Address [facility] de Phone Number [address] [address] * Acetaminophen level (09/28/2023 9:02 PM [facility]) Acetaminophen <5 <=5 mcg/mL [facility] Comment: Interpretive Data Significant hepatic injury may occur and treatment with n-acetyl cysteine is generally recommended if the acetaminophen level exceeds: 150 mcg/mL at 4 hours after ingestion ??75 mcg/mL at 8 hours after ingestion ??38 mcg/mL at 12 hours after ingestion ??19 mcg/mL at 16 hours after ingestion Consult toxicology or poison control ([phone]) for unknown ingestion time. Current interpretive data was last revised 2023. Blood 09/28/2023 9:02 PM [facility] 09/28/2023 9:07 PM [facility] Mansoor Valdes MD LAB BLOOD ORDERABLES Final Result Performing Organization Address [facility] Co de Phone Number [facility] [address] [address] * Troponin T high-sensitivity 2-hour (09/28/2023 9:02 PM [facility]) Trop T hs 10 <=22 ng/L [facility] Comment: Interpretive Data For further hscTnT resources including the diagnostic algorithm and an aid in interpretation, copy and paste this link: https://nrl.testcatalog.org/show/hsTrop Current Interpretive Data last revised 2020. Trop T hs delta 2 ng/L [facility] Trop T hs interp Insignificant [facility] Blood 09/28/2023 9:02 PM [facility] 09/28/2023 9:07 PM [facility] Yuko Naik DO LAB BLOOD ORDERABLES Final Resu lt Performing Organization Address [facility] Co de Phone Number [facility] [address] [address] * (ABNORMAL) Urinalysis reflex to microscopic (09/28/2023 7:30 PM [facility]) Color, ur Kailyn Yellow [facility] Clarity, ur Cloudy(A) Clear [facility] Specific gravity, ur 1.020 1.003 - 1.030 [facility] pH, urine 5.0 [facility] Comment: Interpretive Data ? Urine pH is affected by diet, medications, systemic acid-base disturbances, and renal tubular function. ??pH may affect urinary stone formation. ??For example, urine pH below 6.0 may help reduce the tendency for calcium phosphate stones and pH greater than 6.0 may reduce the tendency for uric acid stone formation. Source: [facility] [employer] Current Interpretive Data was last revised on 2017 Protein, ur ql Negative Negative [facility] Glucose, ur ql Negative Negative [facility] Ketones, ur 1+(A) Negative [facility] Bilirubin, ur Negative Negative [facility] Blood, ur Negative Negative [facility] Urobilinogen, ur 2.0(A) <2.0 mg/dL [facility] Nitrite, ur Negative Negative [facility] Leukocyte esterase, ur Negative Negative [facility] UA reflex comment Reflex conditions for microscopic UA not met. [facility] Urine 09/28/2023 7:30 PM [facility] 09/28/2023 7:33 PM [facility] Yuko Naik DO LAB URINE ORDERABLES Final Resu lt [facility] [address] [facility] Department of Laboratories [place], [place] [id number] * Drugs of Abuse Screen, Urine without Confirmation (09/28/2023 7:29 PM [facility]) Amphetamine, ur Not Detected CutOff 500ng/mL [facility] Comment: Interpretive Data - Amphetamines: ??Samples containing greater than 500 ng/mL d-methamphetamine ??or other cross-reacting amphetamine compounds are reported as positive. ??Amphetamine immunoassays are subject to significant false positive rates due to cross-reactivity of non-amphetamine drugs. Confirmatory testing required for definitive results. Current Interpretive Data was last reviewed 2023. Barbiturates, ur Not Detected CutOff 200ng/mL [facility] Comment: Interpretive Data - Barbiturates: ??Samples containing greater than 200 ng/mL secobarbital or other cross-reacting barbiturate compounds are reported as positive. ??False positive and false negative results are possible. Confirmatory testing required for definitive results. Current Interpretive Data was last reviewed 2023. Benzodiazepines, ur Not Detected CutOff 100ng/mL [facility] Comment: Interpretive Data - Benzodiazepines: ??Samples containing greater than 100 ng/mL nordiazepam or other cross-reacting compounds are reported as positive. False positive and false negative results are possible. Confirmatory testing required for definitive results. Current Interpretive Data was last reviewed 2023. Cannabinoids, ur Not Detected CutOff 50 ng/mL [facility] Comment: Interpretive Data - Cannabinoids: ??Samples containing greater than 50 ng/mL delta-9 THC -COOH or other cross-reacting compounds are reported as positive. ??False positive and false negative results are possible. ??Confirmatory testing required for definitive results. Current Interpretive Data was last reviewed 2023. Cocaine, ur Not Detected CutOff 150ng/mL [facility] Comment: Interpretive Data - Cocaine: ??Samples containing greater than 150 ng/mL benzoylecgonine or other cross-reacting compounds are reported as positive. False positive and false negative results are possible. Confirmatory testing required for definitive results. Current Interpretive Data was last reviewed 2023. Fentanyl, Ur Not Detected Cutoff 1 ng/mL [facility] Comment: Interpretive Data - Fentanyl: ??Samples containing greater than 1 ng/mL fentanyl or other cross-reacting fentanyl compounds are reported as positive. ??False positive and false negative results are possible. Confirmatory testing required for definitive results. Current Interpretive Data was last reviewed 2023. Methadone, ur Not Detected CutOff 300ng/mL [facility] Comment: Interpretive Data - Methadone: ??Samples containing greater than 300 ng/mL d,l-methadone or other cross-reacting compounds are reported as positive. ??False positive and false negative results are possible. Confirmatory testing required for definitive results. Current Interpretive Data was last reviewed 2023. Opiates, ur Not Detected CutOff 300ng/mL [facility] Comment: Interpretive Data - Opiates: ??Samples containing greater than 300 ng/mL morphine or other cross-reacting compounds are reported as positive. ??False positive and false negative results are possible. Confirmatory testing required for definitive results. Current Interpretive Data was last reviewed 2023. Oxycodone, ur Not Detected CutOff 100ng/mL [facility] Comment: Interpretive Data - Oxycodone: ??Samples containing greater than 100 ng/mL oxycodone or other cross-reacting compounds are reported as ??positive. ??False positive and false negative results are possible. Confirmatory testing required for definitive results. Current Interpretive Data was last reviewed 2023. Phencyclidine, ur Not Detected CutOff 25 ng/mL [facility] Comment: Interpretive Data - Phencyclidine: ??Samples [...] revised on 2018. Urine 09/28/2023 7:29 PM [facility] 09/28/2023 7:33 PM [facility] Narrative [facility] - 09/28/2023 8:06 PM [facility] Drug of Abuse screening is performed by immunoassay for medical purposes only. ??This is not to be used for Pain Management purposes. us Yuko Naik DO LAB URINE ORDERABLES Final Resu lt [facility] [address] [facility] [place] [address] * eGFR (09/28/2023 6:43 PM [facility]) eGFR 120 mL/min/1. 73 m2 [facility] Comment: [...] last reviewed 2021. Blood 09/28/2023 6:43 PM [facility] 09/28/2023 6:47 PM [facility] Yuko Naik DO LAB BLOOD ORDERABLES Final Resu lt [facility] [address] [facility] Department [place] [address] * (ABNORMAL) Differential, auto (09/28/2023 6:43 PM [facility]) Neutrophil abs 8.3(H) 1.7 - 6.5 K/cumm [facility] Imm gran abs 0.0 0.0 - 0.1 K/cumm [facility] Lymphocyte abs 1.9 0.8 - 3.3 K/cumm [facility] Monocyte abs 1.3(H) 0.2 - 0.8 K/cumm [facility] Eosinophil abs 0.0 0.0 - 0.5 K/cumm [facility] Basophil abs 0.1 0.0 - 0.1 K/cumm [facility] Neutrophil pct 71.6 % [facility] Comment: Interpretive Data Percent cell count reference ranges are not reported, since discordance with absolute values may lead to misinterpretation of CBC data. Current Interpretive Data was last revised on 2018. Imm gran pct 0.3 % [facility] Comment: Interpretive Data Percent cell count reference ranges are not reported, since discordance with absolute values may lead to misinterpretation of CBC data. Current Interpretive Data was last revised on 2018. Lymphocyte pct 15.9 % [facility] Comment: Interpretive Data Percent cell count reference ranges are not reported, since discordance with absolute values may lead to misinterpretation of CBC data. Current Interpretive Data was last revised on 2018. Monocyte pct 11.3 % [facility] Comment: Interpretive Data Percent cell count [...] revised on 2018. Blood 09/28/2023 6:43 PM [facility] 09/28/2023 6:47 PM [facility] Yuko Naik LAB BLOOD ORDERABLES Final Resu lt Performing Organization Address [facility] de Phone Number [address] [place] [address] * (ABNORMAL) Ethanol (09/28/2023 6:43 PM [facility]) Ethanol 94(H) <=10 mg/dL [facility] Comment: Interpretive Data Legal limit of intoxication > or = 80 mg/dL Levels > or = 400 mg/dL are potentially TOXIC. Current interpretive data was last revised on 2018. Blood 09/28/2023 6:43 PM [facility] 09/28/2023 6:47 PM [facility] Yuko Naik LAB BLOOD ORDERABLES Final Resu lt Performing Organization Address [facility] Co de Phone Number [address] [place] [address] * Troponin T high-sensitivity series (baseline, 2hr, 4hr, 6hr) (09/28/2023 6:43 PM [facility]) Trop T hs 8 <=22 ng/L [facility] Comment: Interpretive Data For further hscTnT resources including the diagnostic algorithm and an aid in interpretation, copy and paste this link: https://nrl.testcatalog.org/show/hsTrop Current Interpretive Data last revised 2020. Blood 09/28/2023 6:43 PM [facility] 09/28/2023 6:47 PM [facility] Yuko Naik DO LAB BLOOD ORDERABLES Final Resu lt [facility] [address] [facility] Department [place] [address] * (ABNORMAL) Comprehensive metabolic panel (09/28/2023 6:43 PM [facility]) Sodium 133(L) 135 - 145 mmol/L [facility] Potassium, pl 3.5 3.3 - 4.9 mmol/L [facility] Chloride 91(L) 97 - 110 mmol/L [facility] CO2 20(L) 22 - 32 mmol/L [facility] Anion gap 22(H) 2 - 15 mmol/L [facility] BUN 6 6 - 25 mg/dL [facility] Creatinine 0.70(L) 0.80 - 1.30 mg/dL [facility] Glucose 93 70 - 199 mg/dL [facility] Comment: Interpretive Data Fasting glucose >/= [...] 2022. Calcium 8.9 8.5 - 10.3 mg/dL [facility] Bilirubin, total 1.3(H) 0.1 - 1.2 mg/dL [facility] Protein, pl 8.2 6.5 - 8.5 g/dL [facility] Albumin 4.2 3.5 - 5.0 g/dL [facility] Alk phos 96 40 - 130 Units/L [facility] ALT 71(H) 7 - 55 Units/L [facility] AST 98(H) 10 - 50 Units/L [facility] Blood 09/28/2023 6:43 PM [facility] 09/28/2023 6:47 PM [facility] Yuko Naik DO LAB BLOOD ORDERABLES Final Resu lt [facility] [address] [facility] Department [place] [address] * (ABNORMAL) CBC with auto differential (09/28/2023 6:43 PM [facility]) Pathologist [facility] WBC 11.6(H) 3.8 - 9.9 K/cumm [facility] Hgb 15.5 13.0 - 17.5 g/dL [facility] Comment: Interpretive Data A reference range for this assay has not been established for patients with an unknown legal sex. Please refer to the laboratory test catalog for established sex-specific reference intervals. Current interpretive data was last revised on 2023. Hct 42.4 38.9 - 50.3 % [facility] Comment: Interpretive Data A reference range for this assay has not been established for patients with an unknown legal sex. Please refer to the laboratory test catalog for established sex-specific reference intervals. Current interpretive data was last revised on 2023. Plt 212 150 - 400 K/cumm [facility] MPV 9.4 9.1 - 12.3 fL [facility] RBC 4.83 4.30 - 5.80 M/cumm [facility] Comment: Interpretive Data A reference range for this assay has not been established for patients with an unknown legal sex. Please refer to the laboratory test catalog for established sex-specific reference intervals. Current interpretive data was last revised on 2023. MCV 87.8 81.3 - 96.4 fL [facility] MCH 32.1 27.1 - 33.3 pg [facility] MCHC 36.6(H) 32.3 - 35.7 g/dL [facility] RDW CV 12.5 11.1 - 14.9 % [facility] RDW SD 39.8 35.7 - 48.1 fL [facility] NRBC abs 0.00 0.00 - 0.01 K/cumm [facility] Blood (Blood, Venous) 09/28/2023 6:43 PM [facility] 09/28/2023 6:47 PM [facility] Yuko Naik DO LAB BLOOD ORDERABLES Final Resu lt [facility] [address] [facility] Department [place] [address] * ECG 12 lead (09/28/2023 6:34 PM [facility]) Pathologist [facility] Ventricular Rate EKG/Min 128 BPM [facility] Atrial Rate 128 BPM [facility] WA-Interval (MSEC) 118 ms [facility] QRS-Interval (MSEC) 74 ms [facility] QT-Interval (MSEC) 334 ms [facility] QTc 487 ms [facility] P [place] 57 degrees [facility] R [place] 7 degrees [facility] T [place] 54 degrees [facility] Diagnosis Poor data quality, interpretation may be adversely affected Possible ??Sinus tachycardia with occasional Premature ventricular complexes Otherwise normal ECG When compared with ECG of 08-NOV-2021 13:58 P.M. Non-specific change in ST segment in Inferior leads T wave inversion no longer evident in Inferior leads Rate has decreased Suggest repeat EKG Confirmed by JINNY ZEPEDA M.D. ([id number]) on 10/01/2023 7:40:47 PM [facility] 09/28/2023 6:34 PM [facility] 10/01/2023 7:40 PM [facility] Yuko Naik DO ECG ORDERABLES Final Result Performing Organization Address [facility]/ZIP Co de Phone Number [facility] documented in this encounter Visit Diagnoses [...] Chest PainIndications:Chest Pain Given 09/28/2023 6:47 PM [facility] 324 mg chlordiazePOXIDE (LIBRIUM) capsule 100 mg 100 mg, oral, Once, On Wed09/28/23 at 2013, For 1 dose Given 09/28/2023 8:15 PM [facility] 100 mg cloNIDine (CATAPRES-TTS) 0.2 mg/24 hr patch weekly 1 patch 1 patch, transdermal, Administer over 7 Days, Weekly, First dose on Wed09/28/23 at 2315, Apply overlay over the clonidine patch. Write only on the overlay. Medication Applied 10/05/2023 8:35 AM [facility] 1 patch Left Shoulder Medication Applied 09/29/2023 12:04 AM [facility] 1 patch Left Arm folic acid (FOLVITE) tablet 1 mg 1 mg, oral, Daily, First dose on Wed09/29/23 at 0900, For 5 days, Each tablet contains 1 mg of folic acid (1.67 mg DFE)., Indications: Folate DeficiencyIndications:Folate Deficiency Given 10/03/2023 7:52 AM [facility] 1 mg Given 10/02/2023 8:03 AM [facility] 1 mg Given 10/01/2023 8:25 AM [facility] 1 mg influenza quadrivalent [id number] (FLULAVAL,FLUARIX,FLUZONE) 60 mcg (15 mcg x 4)/0.5 [...] of 2 mg/minute. Given 09/28/2023 10:24 PM [facility] 1 mg LORazepam (ATIVAN) injection 1 mg [...] Assessment Scale score Given 09/29/2023 3:07 PM [facility] 1 mg Given 09/29/2023 9:27 AM [facility] 1 mg Given 09/29/2023 3:37 AM [facility] 1 mg LORazepam (ATIVAN) injection 2 mg 2 mg, intravenous, Once, On Wed09/29/23 at 0140, For 1 dose, For IV administration, draw up ordered admin dose/volume, then dilute with equal volume of 0.9% sodium chloride and administer total volume to patient. Do not exceed a rate of 2 mg/minute. Given 09/29/2023 1:56 AM [facility] 2 mg LORazepam (ATIVAN) tablet 1 mg [...] Assessment Scale score Given 10/03/2023 12:22 PM [facility] 1 mg LORazepam (ATIVAN) tablet 1 mg [...] Assessment Scale score Given 10/02/2023 5:52 PM [facility] 1 mg Given 10/02/2023 3:23 PM [facility] 1 mg Given 10/02/2023 1:01 PM [facility] 1 mg naloxone (NARCAN) 0.4 mg/mL injection [...] otine Dependence Medication Applied 10/04/2023 3:53 PM [facility] 1 patch Right Shoulder Medication Applied 10/03/2023 4:24 PM [facility] 1 patch Left Arm Medication Applied 10/02/2023 4:44 PM [facility] 1 patch Right Shoulder ondansetron (ZOFRAN) injection 4 mg 4 mg, intravenous, Administer over 2 Minutes, Once, On Wed09/28/23 at 1901, For 1 dose Given 09/28/2023 7:05 PM [facility] 4 m g ondansetron (ZOFRAN) injection 4 mg 4 mg, intravenous, Administer over 2 Minutes, Once, On Wed09/28/23 at 2219, For 1 dose Given 09/28/2023 10:24 PM [facility] 4 mg ondansetron (ZOFRAN) injection 4 mg 4 mg, intravenous, Administer over 2 Minutes, Every 6 hours PRN, nausea, vomiting, Starting on Oly 09/30/23 at 1225 Given 10/04/2023 8:07 AM [facility] 4 mg Given 09/30/2023 12:56 PM [facility] 4 mg ondansetron ODT (ZOFRAN-ODT) disintegrating tablet 4 mg 4 mg, oral, Every 6 hours PRN, nausea, vomiting, Starting on Oly 09/30/23 at 1225 oxyCODONE (ROXICODONE) tablet 5 mg 5 mg, oral, Every 4 hours PRN, moderate pain, Starting on Wed09/29/23 at 0236, Indications: PainIndications:Pain Given 10/01/2023 9:28 PM [facility] 5 mg Given 10/01/2023 1:43 PM [facility] 5 mg Given 10/01/2023 8:25 AM [facility] 5 mg oxyCODONE (ROXICODONE) tablet 5 mg 5 mg, oral, Every 6 hours PRN, moderate pain, Starting on 10/02/23 at 1230, Indications: PainIndications:Pain Given 10/05/2023 12:46 PM [facility] 5 mg Given 10/05/2023 7:48 AM [facility] 5 mg Given 10/04/2023 5:53 PM [facility] [address] (PROTONIX) extended release tablet 40 mg 40 mg, oral, 2 times daily, First dose on Oly 09/30/23 at 0900, Do not crush, chew, cut, dissolve, open or otherwise manipulate tablet/capsule., Indications: Treatment of Non-Bleeding Gastric DisorderIndications:Treatment of Non-Bleeding Gastric Disorder Given 10/05/2023 8:35 AM [facility] 40 mg Given 10/04/2023 10:51 PM [facility] 40 mg Given 10/04/2023 8:07 AM [facility] 40 mg polyethylene glycol (MIRALAX) packet 17 g 17 g, oral, Daily PRN, constipation, Starting on Wed09/29/23 at 0235, Indications: constipationIndications:constipation Given 10/05/2023 9:55 AM [facility] 17 g propranoloL (INDERAL) tablet 10 mg 10 mg, oral, 2 times daily, First dose (after last modification) on Wed09/29/23 at 1045 Given 10/05/2023 8:35 AM [facility] 10 mg Given 10/04/2023 10:51 PM [facility] 10 mg Given 10/04/2023 8:06 AM [facility] 10 mg QUEtiapine (SEROquel) tablet 12.5 mg 12.5 mg, oral, 3 times daily, First dose on Wed09/29/23 at 1600 Given 10/05/2023 8:34 AM [facility] 12.5 mg Given 10/04/2023 10:51 PM [facility] 12.5 mg Given 10/04/2023 3:52 PM [facility] 12.5 mg ramelteon (ROZEREM) tablet 8 mg 8 mg, oral, Nightly PRN, sleep, Starting on Wed09/29/23 at 0235, Indications: Sleep-Onset InsomniaIndications:Sleep-Onset Insomnia Given 10/03/2023 9:13 PM [facility] 8 m g rifAXIMin (XIFAXAN) tablet 550 mg 550 mg, oral, 2 times daily, First dose on Wed09/29/23 at 1100, Indications: Hepatic EncephalopathyIndications:Hepatic Encephalopathy Given 10/05/2023 8:35 AM [facility] 550 mg Given 10/04/2023 10:51 PM [facility] 550 mg Given 10/04/2023 8:06 AM [facility] 550 mg sertraline (ZOLOFT) tablet 50 mg 50 mg, oral, Every morning, First dose on Wed09/29/23 at 1245 Given 10/05/2023 8:35 AM [facility] 50 mg Given 10/04/2023 8:07 AM [facility] 50 mg Given 10/03/2023 7:52 AM [facility] 50 mg simethicone (MYLICON) chewable tablet 160 mg 160 mg, oral, 2 times daily PRN, flatulence, Starting on Wed10/01/23 at 1553 Given 10/03/2023 4:24 PM [facility] 160 mg Given 10/02/2023 1:01 PM [facility] 160 mg sodium chloride 0.9% bolus 1,000 mL 1,000 mL, intravenous, at 1,000 mL/hr, Administer over 1 Hours, Once, On Wed09/28/23 at 2012, For 1 dose New 09/28/2023 8:16 PM [facility] 1,000 mL 1000 mL/hr sodium chloride 0.9% bolus 1,000 mL 1,000 mL, intravenous, Once, On Wed09/28/23 at 2222, For 1 dose New Bag 09/28/2023 10:25 PM [facility] 1,000 mL sodium chloride 0.9% infusion 100 mL/hr, intravenous, Continuous, Starting on Wed09/29/23 at 0236, For 12 hours New Bag 09/29/2023 2:58 PM [facility] 100 mL/hr 100 mL/hr New Bag 09/29/2023 3:36 AM [facility] 100 mL/hr 100 mL/hr sodium chloride 0.9% infusion 75 mL/hr, intravenous, Continuous, Starting on Wed09/30/23 at 1300 New Bag 10/04/2023 12:54 PM [facility] 75 mL/hr 75 mL/hr New Bag 10/04/2023 12:00 AM [facility] 75 mL/hr 75 mL/hr New Bag 10/03/2023 8:58 AM [facility] 75 mL/hr 75 mL/hr sucralfate (CARAFATE) 100 mg/mL oral suspension 1 g 1 g, oral, 3 times daily with meals, First dose on Wed09/29/23 at 1200 Given 10/05/2023 8:36 AM [facility] 1 g Given 10/04/2023 5:53 PM [facility] 1 g Given 10/04/2023 11:46 AM [facility] 1 g thiamine (VITAMIN B-1) 100 mg, folic acid (FOLVITE) 1 mg in sodium chloride 0.9% 100 mL IVPB intravenous, at 202.4 mL/hr, Administer over 30 Minutes, Once, On Wed09/28/23 at 2011, For 1 dose New Bag 09/28/2023 9:05 PM [facility] 202.4 mL/hr thiamine (VITAMIN B-1) tablet 100 mg 100 mg, oral, Daily, First dose on Wed09/29/23 at 0900, For 5 days, Indications: Thiamine DeficiencyIndications:Thiamine Deficiency Given 10/03/2023 7:52 AM [facility] 100 mg Given 10/02/2023 8:03 AM [facility] 100 mg Given 10/01/2023 8:25 AM [facility] 100 mg documented in this encounter Discontinued [...] Recently Administered Medications Times are shown in [facility]. Scheduled Medication Order 10/03/2023 10/04/2023 10/05/2023 cloNIDine [...] Medication Order 10/03/2023 10/04/2023 10/05/2023 influenza quadrivalent [id number] (FLULAVAL,FLUARIX,FLUZON E) 60 mcg (15 mcg x [...] COVID: Suspected 09/29/2023 09/29/2023 09/29/2023 7:44 AM [facility] documented as of this encounter Care Teams Clinical Operations Manager Relationship Specialty Start Date End Date Major Dotson MD PCP - General Internal Medicine 11/07/21 Harpal Lopez MD [facility] [address] Referring Physician Internal Medicine 10/05/23 documented as of this encounter
--- OUTSIDE RECORDS SUMMARY | 2024-11-05 08:52 | XMS_ITS | Encounter Summary ---
Author Organization [facility] Healthcare Address [address] [place], [place] [id number] Care Team Providers Care Solidworks Drafter Name Role Phone Major Kraft MD Primary Care Provider [phone] Reason for Visit * Diagnostic Imaging (Routine) - Closed Specialty Diagnoses / Procedures Referred By Rdo t Referred To Contact Diagnoses Ascites Procedures US Ascites US Guided Paracentesis Major Kraft MD Phone: tel: fax: [address] [phone] Referral ID Status Reason Start Date Expiration Date Visits Re quested Visits Authorized [id number] Closed 11/06/2021 12/06/2022 1 1 Encounter Details Date Type Department Care Team (Latest Contact Info) Description 11/07/2021 2:00 PM VIDEO GAME TESTER - 11/07/2021 11:59 PM VIDEO GAME TESTER Hospital Encounter [address] [address] Ascites Discharge Disposition: Discharge to home or self care Social History Tobacco Use Types Packs/Day Years Used Date Smoking Tobacco: Never Assessed Sex and Gender Information Value Date Recorded Sex Assigned at Not on file Legal Sex Male 1:24 PM VIDEO GAME TESTER Gender Identity Not on file Sexual Orientation Not on file documented as of this encounter Discharge Disposition Disposition Code Departure Means Destination Discharge to home or self care documented in this encounter Plan of Treatment Not on file documented as of this encounter Procedures Procedure Name Priority Date/Time Associated Diagnosis Comments US ASCITES Schedule Routine, Read Routine (OP Routine) 11/07/2021 3:10 PM VIDEO GAME TESTER Ascites documented in this encounter Results * US Ascites (11/07/2021 3:10 PM VIDEO GAME TESTER) Anatomical Region Laterality Modality Abdomen and Pelvis N/A Ultrasound, C omputed Radiography 11/07/2021 3:24 PM VIDEO GAME TESTER Narrative 11/07/2021 3:27 PM VIDEO GAME TESTER EXAM DESCRIPTION: ?? US ASCITES REASON FOR STUDY: ?? ASCITES. ??Paracentesis requested. TECHNIQUE: Limited Static and real time imaging performed of the 4 abdominal quadrants and the midline. ??The patient was scanned by the acid cleaner and by Dr. Parish, as he had [...] D: ??11/07/2021 3:27 PM T: Report ID: [id number] Reading Location: ??[id number] Procedure Note Cameron Parish MD - 11/07/2021 EXAM DESCRIPTION: US ASCITES REASON FOR STUDY: ASCITES. Paracentesis requested. TECHNIQUE: Limited Static and real time imaging performed of the 4abdominal quadrants and the midline. The patient was scanned by the acid cleaner andby Dr. Parish, as he had presented [...] by Cameronbaylee Parish M.D. T: Report ID: [id number] Reading Location: [id number] us Major Kraft MD IMG US PROCEDURES Final Res ult documented in this encounter Visit Diagnoses Diagnosis Ascites documented in this encounter Care Teams Solidworks Drafter Relationship Specialty Start Date End Date Major Kraft MD PCP - General Internal Medicine 11/07/21 documented as of this encounter
--- OUTSIDE RECORDS SUMMARY | 2024-11-05 08:52 | XMS_ITS | Encounter Summary ---
Author Organization [facility] Healthcare Address [address] [place] [address] Care Team Providers Care Research Investigator Name Role Phone Major Kraft MD Primary Care Provider [phone] Encounter Details Date Type Department Care Team (Late st Contact Info) Description 01/01/2022 Orders Only [facility] [address] [facility] [address] [place] [address] Max Tate, SHERIFF OFFICER [address] [place] [address] Fracture of unspecified part of neck of left femur, subsequent encounter for closed fracture with routine healing (Primary Dx) Social History Tobacco Use Types Packs/Day Years Used Date Smoking Tobacco: Never Assessed Sex and Gender Information Value Date Recorded Sex Assigned at Not on file Legal Sex Male 1:24 PM [employer] Gender Identity Not on file Sexual Orientation [...] documented as of this encounter Care Teams Research Investigator Relationship Specialty Start Date End Date Major Kraft MD PCP - General Internal Medicine 11/07/21 documented as of this encounter
--- OUTSIDE RECORDS SUMMARY | 2024-11-05 08:52 | XMS_ITS | Encounter Summary ---
Author Organization [facility] Healthcare Address [address] [place] [address] Care Team Providers Care Fountain Clerk Name Role Phone Major Kraft MD Primary Care Provider [phone] Reason for Visit * Reason Comments Abdominal Pain Encounter Details Date Type Department Care Team (Late st Contact Info) Description 11/08/2021 1:42 PM SECTION LEADER - 11/08/2021 3:21 PM SECTION LEADER Emergency [address] [address] Shortness of breath (Primary Dx); COVID-19 Discharge Disposition: Left Against Medical Advice Social History Tobacco Use Types Packs/Day Years Used Date Smoking Tobacco: Never Assessed Sex and Gender Information Value Date Recorded Sex Assigned at Not on file Legal Sex Male 1:24 PM SECTION LEADER Gender Identity Not on file Sexual Orientation Not on file documented as of this encounter Last Filed Vital Signs Vital Sign Reading Time Taken Comments Blood Pressure 111/76 11/08/2021 1:45 PM SECTION LEADER Pulse 74 11/08/2021 1:45 PM SECTION LEADER Temperature 36.6 ??C (97.8 ??F) 11/08/2021 1:48 PM CS T Respiratory Rate 12 11/08/2021 1:45 PM SECTION LEADER Oxygen Saturation 98% 11/08/2021 1:45 PM SECTION LEADER Inhaled Oxygen Concentration - - Weight 88.5 kg (195 lb) 11/08/2021 1:45 PM SECTION LEADER Height - - Body Mass Index - - documented in this encounter Discharge Disposition Disposition Code Departure Means Destination Left Against Medical Advice documented in this encounter ED Notes * Silke Davidson PA - 11/08/2021 1:52 PM CST HPI Chief Complaint Patient presents with ??? Abdominal Pain HPI Patient is a 36-year-old male history of cirrhosis, presents via EMS from [facility] with shortness of breath. Patient reports a [...] booster. Followedby GI and liver specialist at [facility]. Scheduled to see them in 4 [...] -- -- -- -- Oral Physical Exam [facility] ED Course as of 11/09/21 [...] cardiopulmonary abnormality. By: Silke Davidson PA Time: 11/08 Comment: Patient no longer wants to participate [...] Mansoor Valdes MD at 11/09/2021 2:54 PM SECTION LEADER ION LEADER ION LEADER * Marisol Iglesias, ALFREDO - 11/08/2021 1:43 PM CST Arrives from [facility] in [place], was sent out yesterday to have beely tapped , and they said they couldn't find a pocket. Pt sent to [facility] today per Dr Kraft request to have abd tapped. Pt states that he has gained 40-50lbs in the past 30 days but thanksgiving and deshawn just happened . Las time abd was drained was July ION LEADER documented in this encounter Plan of Treatment Scheduled Orders Name Type Priority Associated Diagnoses Orde r Schedule Urinalysis reflex to microscopic and culture Urine, clean voided Microbiology STAT STAT for 1 Occurrences starting 11/08/2021 until 11/08/2021 documented as of this encounter Procedures Procedure Name Priority Date/Time Associated Diagnosis Comments XR CHEST 1 VIEW ED Urgent/IP Urgent 11/08/2021 2:10 PM SECTION LEADER ECG 12-LEAD STAT 11/08/2021 1:58 PM SECTION LEADER INFLUENZA A/B, RSV, AND COVID-19 PCR Routine 11/08/2021 1:57 PM SECTION LEADER EGFR STAT 11/08/2021 1:57 PM SECTION LEADER DIFFERENTIAL AUTO STAT 11/08/2021 1:5 7 PM SECTION LEADER PRO B-TYPE NATRIURETIC PEPTIDE STAT 11/08/2021 1:57 PM SECTION LEADER CBC WITH AUTO DIFFERENTIAL STAT 11/08/2021 1:57 PM SECTION LEADER PROTIME-INR STAT 11/08/2021 1:57 PM SECTION LEADER COMPREHENSIVE METABOLIC PANEL STAT 11/08/2021 1:57 PM SECTION LEADER documented in this encounter Results * XR Chest 1 View (11/08/2021 2:10 PM SECTION LEADER) Anatomical Region Laterality Modality Body, Chest N/A Computed Radiogr aphy 11/08/2021 2:21 PM SECTION LEADER Narrative 11/08/2021 2:23 PM SECTION LEADER EXAM DESCRIPTION: ?? XR CHEST 1 VIEW [...] D: ??11/08/2021 2:23 PM T: Report ID: [id number] Reading Location: ??[id number] Procedure Note Howard Rossi MD - 11/08/2021 [...] signed by Howard SANDY T: Report ID: [id number] Reading Location: [place] [address] Silke HALL IMG XR PROCEDURES Final Resul t * ECG 12 lead (11/08/2021 1:58 PM SECTION LEADER) [facility] Ventricular Rate EKG/Min [address] [facility] Atrial Rate 74 BPM [facility] AZ-Interval (MSEC) 132 ms [facility] QRS-Interval (MSEC) 92 ms [facility] QT-Interval (MSEC) 408 ms [facility] QTc 452 ms [facility] P [place]per[place] 21 degrees [facility] R [place] 5 degrees [facility] T [place]ance 40 degrees [facility] Diagnosis Normal sinus rhythm Minimal voltage criteria for LVH, may be normal variant Borderline ECG No previous ECGs available [facility] 11/08/2021 1:58 PM SECTION LEADER 11/08/2021 3:01 PM SECTION LEADER Silke HALL ECG ORDERABLES Final Result [facility] * eGFR (11/08/2021 1:57 PM SECTION LEADER) eGFR 117 mL/min/1. 73 m2 [facility] DUMONT [...] last reviewed 2021. Blood 11/08/2021 1:57 PM SECTION LEADER 11/08/2021 1:58 PM SECTION LEADER us Silke HALL LAB BLOOD ORDERABLES Final Re sult SAMAN [address] [facility] [place] [address] * (ABNORMAL) Differential, auto (11/08/2021 1:57 PM SECTION LEADER) Neutrophil abs 3.1 1.7 - 6.5 K/cumm [facility] DUMONT Imm gran abs 0.0 0.0 - 0.1 K/cumm [facility] Lymphocyte abs 1.7 0.8 - 3.3 K/cumm [facility] Monocyte abs 1.3(H) 0.2 - 0.8 K/cumm [facility] Eosinophil abs 0.3 0.0 - 0.5 K/cumm [facility] Basophil abs 0.1 0.0 - 0.1 K/cumm [facility] Neutrophil pct 47.6 % [facility] Comment: Interpretive Data Percent cell count reference ranges are not reported, since discordance with absolute values may lead to misinterpretation of CBC data. Current Interpretive Data was last revised on 2018. Imm gran pct 0.5 % [facility] Comment: Interpretive Data Percent cell count reference ranges are not reported, since discordance with absolute values may lead to misinterpretation of CBC data. Current Interpretive Data was last revised on 2018. Lymphocyte pct 26.9 % [facility] Comment: Interpretive Data Percent cell count reference ranges are not reported, since discordance with absolute values may lead to misinterpretation of CBC data. Current Interpretive Data was last revised on 2018. Monocyte pct 19.7 % [facility] Comment: Interpretive Data Percent cell count reference ranges are not reported, since discordance with absolute values may lead to misinterpretation of CBC data. Current Interpretive Data was last revised on 2018. Eosinophil pct 4.2 % [facility] Comment: Interpretive Data Percent cell count reference ranges are not reported, since discordance with absolute values may lead to misinterpretation of CBC data. Current Interpretive Data was last revised on 2018. Basophil pct 1.1 % [facility] Comment: Interpretive Data Percent cell count reference ranges are not reported, since discordance with absolute values may lead to misinterpretation of CBC data. Current Interpretive Data was last revised on 2018. Blood 11/08/2021 1:57 PM SECTION LEADER 11/08/2021 1:58 PM SECTION LEADER us Silke HALL LAB BLOOD ORDERABLES Final Re sult SAMAN [address] [facility] [place] [address] * (ABNORMAL) Influenza A/B, RSV, and COVID-19 PCR Nasopharyngeal (11/08/2021 1:57 PM SECTION LEADER) Pathologist [facility] COVID-19 RNA Positive(A) Negative [facility] Influenza A RNA Negative Negative [facility] Influenza B RNA Negative Negative [facility] RSV RNA Negative Negative [facility] Comment: Interpretive data: This test is performed using the [employer] Xpress CoV-2/Flu/RSV plus assay. This is a [...] last revised 2021. First COVID-19 test? Unknown [facility] Employeed in healthcare? No [facility] Group care resident? Yes [facility] Hospitalized? Unknown [facility] Is patient in ICU? No [facility] Symptomatic as defined by CDC? Yes [facility] Nasopharyngeal 11/08/2021 1: 57 PM SECTION LEADER 11/08/2021 1:58 PM SECTION LEADER Narrative [facility] - 11/08/2021 2:38 PM SECTION LEADER Date of Symptom Onset->11/08/21 Reason for testing?->Symptomatic Known exposure to confirmed or suspected COVID-19 case?->No Silke HALL LAB MICROBIOLOGY - GENERAL OR DERABLES Final Result [facility] [address] [facility] [place] [address] * (ABNORMAL) Protime-INR (11/08/2021 1:57 PM SECTION LEADER) [facility] PT 15.1(H) 12.0 - 14.6 sec [facility] Comment:Ref Range High INR 1.2 [facility] Comment: Ref Range High Interpretive data Oral anticoagulant therapeutic ranges: Venous thromboembolism prophylaxis or treatment: 2.0-3.0 CARDIOLOGY Standard range: 2.0-3.0 High-intensity range: 2.5-3.5 Refer to indication-specific guidelines for appropriate target ranges for prosthetic heart valve replacement. Current interpretive data was last revised on 2019. Blood 11/08/2021 1:57 PM SECTION LEADER 11/08/2021 1:58 PM SECTION LEADER us Silke HALL LAB BLOOD ORDERABLES Final Re sult MARIELLAJUAN [address] [facility] [place] [address] * Pro B-type natriuretic peptide (11/08/2021 1:57 PM SECTION LEADER) NT-proBNP 11 <=300 pg/mL [facility] DUMONT Comment: [...] Revised Date: 2018. Blood 11/08/2021 1:57 PM SECTION LEADER 11/08/2021 1:58 PM SECTION LEADER us Silke HALL LAB BLOOD ORDERABLES Final Re sult [facility] [address] [facility] [place] [address] * (ABNORMAL) Comprehensive metabolic panel (11/08/2021 1:57 PM SECTION LEADER) Sodium 131(L) 135 - 145 mmol/L [facility] Potassium, pl 3.7 3.3 - 4.9 mmol/L [facility] Chloride 96(L) 97 - 110 mmol/L [facility] CO2 25 22 - 32 mmol/L [facility] Anion gap 10 2 - 15 mmol/L [facility] BUN 18 8 - 25 mg/dL [facility] Creatinine 0.80 0.80 - 1.30 mg/dL [facility] Glucose 84 70 - 199 mg/dL [facility] Comment: Interpretive Data Fasting glucose [...] 2017. Calcium 8.9 8.5 - 10.3 mg/dL [facility] Bilirubin, total 0.4 0.1 - 1.2 mg/dL [facility] Protein, pl 8.2 6.5 - 8.5 g/dL [facility] Albumin 3.9 3.5 - 5.0 g/dL [facility] Alk phos 117 40 - 130 Units/L [facility] ALT 21 7 - 55 Units/L [facility] AST 27 10 - 50 Units/L [facility] Blood 11/08/2021 1:57 PM SECTION LEADER 11/08/2021 1:58 PM SECTION LEADER us Silke HALL LAB BLOOD ORDERABLES Final Re sult [facility] [address] [facility] [place] [address] * (ABNORMAL) CBC with auto differential (11/08/2021 1:57 PM SECTION LEADER) WBC 6.5 3.8 - 9.9 K/cumm [facility] Hgb 12.2(L) 13.0 - 17.5 g/dL [facility] Hct 37.2(L) 38.9 - 50.3 % [facility] Plt 152 150 - 400 K/cumm [facility] MPV 9.7 9.1 - 12.3 fL [facility] RBC 4.24(L) 4.30 - 5.80 M/cumm [facility] MCV 87.7 81.3 - 96.4 fL [facility] MCH 28.8 27.1 - 33.3 pg [facility] MCHC 32.8 32.3 - 35.7 g/dL [facility] RDW CV 19.1(H) 11.1 - 14.9 % [facility] RDW SD 61.9(H) 35.7 - 48.1 fL [facility] NRBC abs 0.00 0.00 - 0.01 K/cumm [facility] Blood 11/08/2021 1:57 PM SECTION LEADER 11/08/2021 1:58 PM SECTION LEADER us Silke HALL LAB BLOOD ORDERABLES Final Re sult [facility]AN [address] [facility] [place] [address] documented in this encounter Visit Diagnoses Diagnosis Shortness of breath- Primary COVID-19 documented in this encounter Orders IV Count Last Ordered Date First Orde red Date SALINE LOCK IV 1 11/08/2021 documented in this encounter Additional Health Concerns Infection Onset Date Last Indicated Resolved Time COVID: Suspected 11/08/2021 11/08/2021 11/08/2021 2:38 PM SECTION LEADER COVID19 11/08/2021 11/08/2021 11/18/2021 3:05 AM SECTION LEADER documented as of this encounter Care Teams Fountain Clerk Relationship Specialty Start Date End Date Major Kraft MD PCP - General Internal Medicine 11/07/21 documented as of this encounter
--- OUTSIDE RECORDS SUMMARY | 2024-11-05 08:52 | XMS_ITS | Encounter Summary ---
Author Organization [facility] Healthcare Address [address] [place] [address] Care Team Providers Care Chimney Supervisor Brick Name Role Phone Major Kraft MD Primary Care Provider [phone] Amos Pabon MD Unavailable [phone] Encounter Details Date Type Department Care Team (Late st Contact Info) Description 12/16/2023 Documentation [facility] Social Work [facility] [place] [address] Jazmín Leonardo Social History Tobacco Use Types Packs/Day Years Used Date Smoking Tobacco: Every Day Cigarettes 0.3 18 [facility] Utilities Answer Date Recorded In the past 12 months has th [employer] electric, gas, oil, or water company threatened [...] often do you attend chur ch or restoration services? Never 09/29/2023 Do you belong to any clubs o r organizations such as mandaen groups, unions, fraternal or athletic groups, or [...] on file Legal Sex Male 1:24 PM RESEARCH EXECUTIVE Gender Identity Not on file Sexual Orientation Not on file Occupation Industry Job Start Date Job End Date disabled Not on file Not on file Not on file documented as of this encounter Progress Notes * Jazmín Leonardo - 12/16/2023 11:24 AM CST Medical Stabilization Peer Saturation Equipment Operator Phone Follow-Up Contact to patient for MSUFollowUpCallTimeline: 60 Day follow up contact. Contact was MSUCallAttempt: Unsuccessful. Number listed is incorrect Jazmín Leonardo 11:24 AM 12/16/23 ARCH EXECUTIVE documented in this encounter Plan of Treatment Not on file documented as of this encounter Visit Diagnoses Not on filedocumented in this encounter Care Teams Chimney Supervisor Brick Relationship Specialty Start Date End Date Major Kraft MD PCP - General Internal Medicine 11/07/21 Amos Pabon MD [address] [address] Referring Physician Internal Medicine 10/05/23 documented as of this encounter
--- OUTSIDE RECORDS SUMMARY | 2024-11-05 08:52 | XMS_ITS | Encounter Summary ---
Author Organization [facility] Address [address] [address] Care Team Providers Care Irrigation Foreman Name Role Phone Major Kraft MD Primary Care Provider [phone] Reason for Referral * Diagnostic Imaging (Routine) - Closed Specialty Diagnoses / Procedures Referred By Contac t Referred To Contact Diagnoses Left hip pain Procedures XR Hip Left 2 or 3 Views Isaak Chase MD [address] [place] [address] [address] Phone: tel: fax: [address] [phone] Referral ID Status Reason Start Date Expiration Date Visits Re quested Visits Authorized [id number] Closed 08/24/2022 09/23/2023 1 1 Reason for Visit * Reason Comments Pain Encounter Details Date Type Department Care Team (Late st Contact Info) Description 08/25/2022 2:00 PM CDT Office Visit [facility] Orthopedics and Sports Medicine [address] [place] [phone] Isaak Chase MD [address] [place] [address] [address] 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 He has been treated at [facility] for injuries sustained to his left hip [...] was seen by joint reconstruction surgeon at [facility] and advised to have a left total [...] think he is best served at the [facility] which is where he was seen [...] D: ??08/25/2022 2:46 PM T: Report ID: [id number] Reading Location: ??[id number] Procedure Note Isaak Chase [...] signed by Isaak BUNDY T: Report ID: [id number] Reading Location: [place] [address] us Isaak Chase MD IMG XR PROCEDURES [...] 3 added in this encounter Care Teams Irrigation Foreman Relationship Specialty Start Date End Date Major Kraft MD PCP - General Internal Medicine 11/07/21 documented as of this encounter
--- OUTSIDE RECORDS SUMMARY | 2024-11-05 08:52 | XMS_ITS | Encounter Summary ---
Author Organization [facility] Address [address] [place] [address] [place] [address] Care Team Providers Care Rental Management Trainee Name Role Phone Major Kraft MD Primary Care Provider [phone] Reason for Visit * Reason Onset Date Comments Covid-19 Home Monitoring 11/09/2021 Enrollm ent Encounter Details Date Type Department Care Team (Late st Contact Info) Description 11/09/2021 Telephone [facility] Accountable Care Organization [address] [place] [address] Antonia Aquino LPN [address] [place] [address] Covid-19 Home Monitoring (Enrollment) Social History Tobacco Use Types Packs/Day Years Used Date Smoking Tobacco: Never Assessed Sex and Gender Information Value Date Recorded Sex Assigned at Not on file Legal Sex Male 1:24 PM CARTOONIST SPECIAL EFFECTS Gender Identity Not on file Sexual Orientation Not on file documented as of this encounter Miscellaneous Notes * Telephone Encounter - Antonia Aquino LPN - 11/09/2021 9:41 AM CARTOONIST SPECIAL EFFECTS This patient was identified as a candidate for the [facility]/ COVID home monitoring program. The patient was contacted via phone for enrollment in the program. The patient has declined to participate in the automated MyChart Manager Center Program, but has verbally agreed to the Phone Only Home Monitoring Program, which includes being contacted for a daily phone assessment by a [facility]/ staff member. The patient was [...] the phone only version of the program. OONIST SPECIAL EFFECTS documented in this encounter Plan of Treatment Not on file documented as of this encounter Visit Diagnoses Not on filedocumented in this encounter Additional Health Concerns Infection Onset Date Last Indicated Resolved Time COVID19 11/08/2021 11/08/2021 11/18/2021 3:05 AM CARTOONIST SPECIAL EFFECTS documented as of this encounter Care Teams Rental Management Trainee Relationship Specialty Start Date End Date aMjor Kraft MD PCP - General Internal Medicine 11/07/21 documented as of this encounter
--- OUTSIDE RECORDS SUMMARY | 2024-11-05 08:52 | XMS_ITS | Encounter Summary ---
Author Organization [facility] Healthcare Address [address] [place] [id number] Care Team Providers Care Invoice Classification Clerk Name Role Phone Major Kraft MD Primary Care Provider Amos Pabon MD Unavailable [phone] Reason for Visit * Reason Comments Hip Pain Encounter Details Date Type Department Care Team (Late st Contact Info) Description 10/26/2023 2:25 AM SPRING PRODUCTION SUPERVISOR - 10/26/2023 6:33 AM [facility] Emergency [address] [address] Amalia Boggs DO [address] [place] [id number] Left hip pain (Primary Dx) Discharge Disposition: Discharge to assisted facility Social History Tobacco Use Types Packs/Day Years Used Date Smoking Tobacco: Every Day Cigarettes 0.3 18 [facility] Utilities Answer Date Recorded In the past 12 months has [employer], gas, oil, or water company threatened to [...] often do you attend chur ch or yarsani services? Never 09/29/2023 Do you belong to any clubs o r organizations such as judaism groups, unions, fraternal or athletic groups, or [...] to sleep or slept in a senior living (including now)? No 09/29/2023 Personal Safety Answer Date Recorded Have you ever been in or are you currently in a harmful physical or emotional relationship or is someone making you feel afraid or unsafe? Denies 09/28/2023 Sex and Gender Information Value Date Recorded Sex Assigned at Not on file Legal Sex Male 1:24 PM SPRING [employer]ODUCTION SUPERVISOR Gender Identity Not on file Sexual Orientation Not on file Occupation Industry Job Start Date Job End Date disabled Not on file Not on file Not on file documented as of this encounter Last Filed Vital Signs Vital Sign Reading Time Taken Comments Blood Pressure 130/65 10/26/2023 4:38 AM SPRING PRODUCTION SUPERVISOR Pulse 68 10/26/2023 4:38 AM SPRING PRODUCTION SUPERVISOR Temperature 36.5 ??C (97.7 ??F) 10/26/2023 4:38 AM CS T Respiratory Rate 18 10/26/2023 4:38 AM SPRING [employer]ODUCTION SUPERVISOR Oxygen Saturation 96% 10/26/2023 4:38 AM SPRING PRODUCTION SUPERVISOR Inhaled Oxygen Concentration - - Weight - - Height - - Body Mass Index - - documented in this encounter Discharge Instructions * Discharge Instructions* Amalia Boggs DO - 10/26/2023 4:41 AM SPRING PRODUCTION SUPERVISOR Please follow-up with your primary care physician [...] available during the time of the visit. NG PRODUCTION SUPERVISOR * Attachments The following attachments cannot be sent through Care Everywhere. * Hip Pain (AfterCare(R) Instructions(ER/ED)) (Puerto Rican) documented in this encounter Medications at Time [...] Departure Means Destination Comment s Discharge to assisted facility [facility] ([place], [place]) documented in this encounter ED Notes * Amalia Boggs DO - 10/26/2023 3:53 AM CST HPI Chief Complaint Patient presents with Hip Pain HPI Pt brought in from [facility]. Hx of left hip [...] convulsions in the left leg. He takes Cressona for the pain and was helping. He [...] left hip pain Pt brought in from [facility]. Hx of left hip [...] Hiral Rodrigues M.D. SN T: Report ID: [id number] Reading Location: [id number] BP 130/65 (BP Location: Right arm, Patient [...] DO This examination was transcribed using the Sweeten voice recognition system without human sort line. In an effort to expedite patient care, this report has not been adjusted for typographical, grammatical, and syntax by a trained medical research associate. Clinical Impression: Left hip pain Amalia Boggs DO 10/29/23 0639 NG PRODUCTION SUPERVISOR * Reanna Mcfarland RN - 10/26/2023 2:30 AM CST Pt brought in from [facility]. Hx of left hip fx for past 2 years. Increased painrecently. NG PRODUCTION SUPERVISOR documented in this encounter Plan of Treatment Not on file documented as of this encounter Procedures Procedure Name Priority Date/Time Associated Diagnosis Comments XR HIP LEFT W PELVIS 2 OR 3 VIEWS ED 10/26/2023 3:45 AM SPRING PRODUCTION SUPERVISOR documented in this encounter Results * XR Hip Left 2 or 3 Views W Pelvis (10/26/2023 3:45 AM SPRING PRODUCTION SUPERVISOR) Anatomical Region Laterality Modality Lower Extremities, Hip, Pelvis Left C omputed Radiography 10/26/2023 3:57 AM SPRING PRODUCTION SUPERVISOR Narrative 10/26/2023 4:00 AM SPRING PRODUCTION SUPERVISOR EXAM DESCRIPTION: XR HIP LEFT 2 OR 3 VIEWS W PELVIS REASON FOR STUDY: left hip pain ?? Pt brought in from [facility]. Hx of left hip [...] D: ??10/26/2023 4:00 AM T: Report ID: [id number] Reading Location: ??[id number] Procedure Note Hiral Rodrigues MD - 10/26/2023 EXAM DESCRIPTION: XR HIP LEFT 2 OR 3 VIEWS W PELVIS REASON FOR STUDY: left hip pain Pt brought in from [facility]. Hx of left hip [...] Hiral Rodrigues M.D. SN T: Report ID: [id number] Reading Location: [id number] Amalia Boggs DO IMG XR PROCEDURES Final [...] For 1 dose Given 10/26/2023 4:11 AM SPRING PRODUCTION SUPERVISOR 5 mg HYDROcodone-acetaminophen (NORCO) 5-325 mg per tablet 1 tablet 1 tablet, oral, Once, On Wed10/26/23 at 0325, For 1 dose, Indications: PainIndications:Pain Given 10/26/2023 4:08 AM SPRING PRODUCTION SUPERVISOR 1 tablet documented in this encounter Active and Recently Administered Medications Times are shown in SPRING PRODUCTION SUPERVISOR. Scheduled Medication Order 10/24/2023 10/25/2023 10/26/2023 diazePAM [...] RN) documented in this encounter Care Teams Invoice Classification Clerk Relationship Specialty Start Date End Date Major Kraft MD PCP - General Internal Medicine 11/07/21 Amos Pabon MD [address] [address] Referring Physician Internal Medicine 10/05/23 documented as of this encounter
== END 2024-10-30 09:54 | disposition home or self-care (01) ==
PROVIDERS: Emergency Medicine; Emergency Provider Student in an Organized Health Care Education/Training Program; PCP Hospitalist
DX: R07.89 Other chest pain (principal); K70.30 Alcoholic cirrhosis of liver without ascites; F10.10 Alcohol abuse, uncomplicated; K20.90 Esophagitis, unspecified without bleeding; K76.6 Portal hypertension; K22.70 Barrett's esophagus without dysplasia; Z86.711 Personal history of pulmonary embolism; Z79.01 Long term (current) use of anticoagulants; Z86.718 Personal history of other venous thrombosis and embolism; D64.9 Anemia, unspecified; F41.8 Other specified anxiety disorders; F17.210 Nicotine dependence, cigarettes, uncomplicated
CPT/HCPCS: 36415; 71046; 71275; 74174; 80053; 83690; 84484; 85025; 85610; 85730; 93005; 96374; 96375; 99284; A9270; J2270; J2405; Q9967

== ENCOUNTER 2024-11-22 14:42 | Emergency (ER) | payer MEDICARE, MEDICAID, SELFPAY ==
[2024-11-22] VITALS (9 sets, daily range): BP systolic 116–136; BP diastolic 62–92; PULSE 85–98; RESP 11–18; TEMP 36.6; O2SAT 95–99
--- NOTE | ~2024-11-22 | CT_ITS ---
EXAMINATION: CT abdomen pelvis w con DATE: 11/22/2024 18:41 INDICATION: Cirrhosis of liver. Epigastric abdominal pain. TECHNIQUE: Computed tomography (CT) of the abdomen and pelvis was performed with 100 mL Omnipaque 350 intravenous contrast. Automated exposure control and iterative reconstruction technique were employe d. The dose-length product was 1192.90 mGy-cm. COMPARISON: CT abdomen and pelvis 10/29/2024 FINDINGS: The visualized portions of lung bases demonstrate mild atelectasis. No pleural effusion. Th e heart size is normal. No pericardial effusion. Paraesophageal varices are noted. There is bilateral gynecomastia. The liver demonstrates a nodular surface contour, consistent with cirrhosis. There is a 2.3 cm cyst in the liver. The gallbladder, spleen, pancreas, adrenal glands, and kidneys are normal . There is severe varices are noted. There is an umbilical hernia containing fat. There is prominent fat in the inguinal canals that may be hernias. There are no dilated loops of bowel. The appendix is normal. There are no pathologically enlarged lymph nodes. There is no free intraperitoneal fluid. The re is an old fracture of left femoral neck with nonunion. There is mild thoracic and lumbar spondylos is. IMPRESSION: 1. Cirrhosis of the liver with portal venous hypertension. 2. Umbilical hernia containing fat. Reviewed, dictated and finalized at location A. TEGIC ACCOUNT MANAGER
--- NOTE | ~2024-11-22 | XR_ITS ---
EXAMINATION: XR chest 1V portable Exam Date/Time: 11/22/2024 15:10 VARNISH MAKER HELPER HISTORY: Anasarcha Comparison: 10/29/2024. RESULT: Lines, tubes, and devices: None. Lungs and pleura: Clear. Cardiomediastinal silhouette: Stable. Other: No acute osseous or upper abdominal finding. IMPRESSION: No acute cardiopulmonary process. Reviewed, dictated and finalized at location K. ISH MAKER HELPER
--- NOTE | 2024-11-22 15:03 | ECG_ITS ---
Test Date: 2024-11-22 15:25:57 Measurements Intervals [place] Rate: 89 P: 23 LA: 142 QRS: -7 QRSD: 93 T: 59 QT: 356 QTc: 433 Interpretive Statements SINUS RHYTHM Electronically Signed On 11-23-2024 10:57:56 IT SECURITY ARCHITECT by Jose Saavedra M.D.
[2024-11-22 15:33] LABS: Basophils Percent Auto 0.7 % (0.2-1.2); Eosinophils Absolute Auto 0.1 K/mm3 (0-0.3); Hematocrit 40.6 % (42.0-52.0); Immature Granulocyte Absolute 0.01 K/mm3 (0.00-0.031); Immature Granulocyte Percent A 0.2 % (0-0.5); Lymphocytes Absolute Auto 1.57 K/mm3 (0.9-3.2); Lymphocytes Percent Auto 26.7 % (18.3-44.2); Mean Corpuscular HGB Conc 34.5 g/dl (32-36); Mean Corpuscular Hemoglobin 33.2 pg (26-34); Mean Corpuscular Volume 96.2 fl (80-100); Mean Platelet Volume 9.9 fl (7.4-10.4); Monocytes Absolute Auto 0.9 K/mm3 (0.1-0.6); Monocytes Percent Auto 15.3 % (2.6-8.5); Neutrophils Absolute Auto 3.2 K/mm3 (1.3-6.7); Neutrophils Percent Auto 55.1 % (45.5-73.1); Platelet Count Result 198 k/mm3 (150-375); Red Blood Count 4.22 M/mm3 (4.6-6.20); Red Cell Distribution Width 12.4 % (11.5-14.5); White Blood Count 5.9 K/mm3 (4.5-10.0)
[2024-11-22 15:35] LABS: Glucose Point of Care 98 mg/dl (65-105)
[2024-11-22 15:48] LABS: INR 1.1
[2024-11-22 15:49] LABS: Partial Thromboplastin Time 35.9 Seconds (22.3-36.8)
[2024-11-22 15:56] LABS: Alanine Aminotransferase 36 U/L (6-50); Albumin Level 4.2 g/dL (3.5-5.1); Alkaline Phosphatase 99 U/L (38-126); Anion Gap 15 mmol/L (4-12); Aspartate Amino Transferase 34 U/L (17-59); Bilirubin,Total 0.4 mg/dL (0.2-1.3); Blood Urea Nitrogen 8 mg/dL (9-20); Calcium 8.8 mg/dL (8.4-10.2); Carbon Dioxide 23 mmol/L (22-30); Chloride 102 mmol/L (98-107); Estimated CRCL calculation 120 ml/min; Estimated Glomerular Filt Rate > 60; Glucose 100 mg/dL (65-110); Lipase 140 U/L (23-300); Magnesium 1.8 mg/dL (1.6-2.3); Phosphorus 3.6 mg/dL (2.5-4.5); Potassium 3.7 mmol/L (3.4-5.0); Sodium 140 mmol/L (137-145)
--- NOTE | 2024-11-22 16:07 | PC.NURSE ---
Pt attempting to urinate but unable to go
[2024-11-22] MEDS: HYDROmorphone HCL INJ (*CRX) 1 MG/ML SYR IV PUSH (16:09)
--- NOTE | 2024-11-22 16:20 | ED.GENADULT ---
HPI - General Adult General Chief complaint: Extremity Problem,Nontraumatic Stated complaint: edema lower ext's - lower abd pain Time Seen by Provider: 11/22/24 14:59 History of Present Illness HPI narrative: This is a 39-year-old male with history of alcoholic liver cirrhosis presenting for lower extremity edema and epigastric abdominal pain. The patient's epigastric abdominal pain started 5 days ago. Sharp pain in the epigastric region it is nonradiating, constant and moderate intensity. He has had pain like this the past and has a diagnosis of gastritis in. Esophagus. He is on Carafate and PPI from Dr. Cat his GI doctor. Patient is also had increased lower extremity edema. He has been taking his Lasix and spironolactone as instructed. Patient denies fevers chills chest pain difficulty breathing or urinary symptoms. Related Data Home Medications ?Medication ?Instructions ?Recorded ?Confirmed ?Last Taken ?Type thiamine HCl (vitamin B1) 100 mg 100 mg PO DAILY 04/20/21 10/10/24 01/12/24 History tablet melatonin 3 mg tablet 3 mg PO HS 09/15/21 10/10/24 09/23/21 History ferrous sulfate 325 mg (65 mg 325 mg PO DAILY 11/12/21 10/10/24 01/12/24 History iron) tablet rifaximin 550 mg tablet (Xifaxan) 550 mg PO BID 11/12/21 10/10/24 01/12/24 History calcium carbonate 500 mg PO TID 06/24/22 10/10/24 01/12/24 History cholecalciferol (vitamin D3) 125 125 mcg PO DAILY 06/24/22 10/10/24 01/12/24 History mcg (5,000 unit) tablet potassium chloride 20 mEq 20 meq PO DAILY 06/24/22 10/10/24 01/12/24 History tablet,extended release furosemide 20 mg tablet (Lasix) 60 mg PO BID 12/14/22 10/10/24 01/12/24 History spironolactone 50 mg tablet 100 mg PO DAILY 12/14/22 10/10/24 01/12/24 History (Aldactone) diclofenac sodium 1 % topical gel 2 g topical BID PRN Pain 12/15/23 10/10/24 Unknown History magnesium oxide 400 mg PO HS 12/15/23 10/10/24 01/12/24 History propranolol 10 mg tablet 10 mg PO BID 12/15/23 10/10/24 01/12/24 History sucralfate 100 mg/mL oral 10 ml PO TID 12/15/23 10/10/24 01/12/24 History suspension baclofen 10 mg tablet 10 mg PO BID 01/12/24 10/10/24 01/12/24 History bupropion HCl 100 mg tablet 100 mg PO TID 01/12/24 10/10/24 01/12/24 History buspirone 5 mg tablet 15 mg PO TID Anxiety 01/12/24 10/10/24 01/12/24 History hydroxyzine HCl 25 mg tablet 25 mg PO TID Anxiety 01/12/24 10/10/24 01/12/24 History lactulose 10 gram/15 mL oral 30 ml PO TID 01/12/24 10/10/24 01/12/24 History solution ondansetron HCl 4 mg tablet 4 mg PO Q8H PRN nausea/vomiting 01/12/24 10/10/24 Unknown History prazosin 1 mg capsule 1 mg PO QID 01/12/24 10/10/24 01/12/24 History trazodone 50 mg tablet 50 mg PO QHS 01/12/24 10/10/24 01/11/24 History Lactobacillus acidophilus 1,000 mmu cells PO BID 08/25/24 10/10/24 Unknown History gabapentin 400 mg capsule 400 mg PO TID 08/25/24 10/10/24 Unknown History haloperidol 5 mg tablet 2.5 mg PO BID 08/25/24 10/10/24 Unknown History lidocaine 4 % topical patch 1 patch topical DAILY 08/25/24 10/10/24 Unknown History (Aspercreme (lidocaine)) menthol 5 % topical patch 1 patch topical DAILY 08/25/24 10/10/24 Unknown History (Biofreeze (menthol)) hmpambhr-caoeh-syeljqp-diperod 1 ea topical QID 08/25/24 10/10/24 Unknown History topical ointment simethicone 80 mg chewable tablet 80 mg PO BID PRN Abdominal 08/25/24 10/10/24 Unknown History Discomfort aluminum-mag hydroxide-simethicone 30 ml PO QID PRN indigestion 10/10/24 10/11/24 Unknown History 200 mg-200 mg-20 mg/5 mL oral susp (Advanced Antacid-Antigas) calcium carbonate (Antacid 200 mg PO TID 10/10/24 10/10/24 Unknown History (calcium carbonate)) lidocaine HCl 4 % topical cream 1 applic topical DAILY 10/10/24 10/10/24 Unknown History (Aspercreme (lidocaine HCl)) lorazepam 1 mg tablet 1 mg PO Q6H 10/10/24 10/10/24 Unknown History hydrocodone 10 mg-acetaminophen 1 tablet PO Q6H PRN pain 10/11/24 10/11/24 Unknown History 325 mg tablet Allergies Allergy/AdvReac Type Severity Reaction Status Date / Time peanut Allergy Severe Anaphylaxis Verified 10/10/24 08:42 shellfish derived Allergy Unknown Unknown Verified 10/10/24 08:42 mushroom AdvReac Unknown Verified 10/10/24 08:42 [facility] Past Medical History Medical History Hx of correction use of blood thinners DVT (deep venous thrombosis) Pulmonary embolism Elevated white blood cell count, unspecified Insomnia, unspecified Hepatic failure, unspecified without coma Chronic anemia GI bleed Secondary to bleeding varices. Esophageal varices Depression with anxiety Fracture of left hip Cirrhosis Holt's esophagus with esophagitis Tobacco abuse Alcoholic hepatitis Alcohol abuse Surgical History Surgical History History of colonoscopy with polypectomy (05/25/22) Benign colon polyp, internal hemorrhoids. History of esophagogastroduodenoscopy (05/22/22) Nonbleeding esophageal varices, Holt esophagus without dysplasia, gastritis. Family History Family History Mother Liver disease Cirrhosis Grandparent Heart failure Heart attack Social History Social History Social History: Surrogate medical decision maker: Modesto Diaz, father. Code status: Full code. Smoking packs per day: 0.25 Smoking cigarettes per day: 5.0 Years smoked: 20 Smoking pack-years: 5.00 Smoking status: Current every day smoker Additional smoking assessment comments: Now smoking about 5 cigarettes a day while at a shelter facility. T Alcohol intake: former Drinks per week: 120 Alcohol use details: Longstanding history of alcohol abuse. Substance use: current Substance use type: does not use Last use: 7 liters vodka week; patient states no alcohol x2 weeks Do You Feel Safe in your Home?: Yes Lack of Transportation: No Lack of Food: Never True Current Housing: I Have Housing Concerned About Future Housing: No Difficulty Paying Gas/Electric Bills: No Difficulty Paying for Meds: No Currently Unemployed: No Education: High School Diploma/GED Difficulty w/ Childcare or Family Care: No Living arrangements: jail Additional living arrangements comments: Currently at [facility] Spiritual care concerns: No Exam Narrative: APPEARANCE: No apparent distress. Patient appears chronically unwell Head: atraumatic. EYES: EOMI, NOSE: Atraumatic NECK: Trachea midline RESPIRATORY: No increased rate of breathing CARDIOVASCULAR: RRR, pitting edema of the lower extremities with mild erythema, no cellulitic changes ABDOMINAL: Abdomen is distended but nontender no guarding or rebound, no fluid wave MUSCULOSKELETAl: No obvious deformities NEURO: Alert. Moving 4/4 extremities SKIN:: Warm, dry. Normal color PSYCHIATRIC: Normal affect Course Vital Signs Vital signs: Vital Signs Temperature 97.9 F 11/22/24 14:44 Pulse Rate 98 11/22/24 14:44 Respiratory Rate 18 11/22/24 14:44 Blood Pressure 134/78 11/22/24 14:44 Pulse Oximetry 98 11/22/24 14:44 Oxygen Delivery Room Air 11/22/24 14:44 Temperature 97.9 F 11/22/24 14:44 Pulse Rate 90 11/22/24 20:09 Respiratory Rate 14 11/22/24 20:09 Blood Pressure 136/79 11/22/24 20:09 Pulse Oximetry 97 11/22/24 20:09 Oxygen Delivery Room Air 11/22/24 14:44 Medical Decision Making MDM Narrative Medical decision making narrative: -Course: 39-year-old male with history of liver cirrhosis, lower extremity edema and esophagitis presenting with epigastric pain and lower extremity edema. VSS. Laboratory workup was within normal limits. CT abdomen pelvis without any acute findings. Patient's epigastric pain was treated and he has been resting comfortably in bed. Patient has been evaluated multiple times for this complaint. Likely esophagitis/gastritis. F/u w/ GI. Patient does have some pitting edema of his lower extremities but he is already on Eliquis so no need for DVT US. More likely edema from liver cirrosis. Patient given a dose of bumex w/ diuresis. Patient will be [facility] back to the jail and can increase his dose of Lasix for 5 days to see if that improves his edema. Patient discharged with return precautions. -DDX includes but is not limited to: Gastritis, GERD, peptic ulcer disease, esophageal bleed, gallbladder disease, DVT/PE, anasarca -Co-morbidities complicating care: Liver cirrhosis, GERD, esophagitis -Social determinants of health: long-term resident, history of alcohol abuse -Shared decision making / Disposition: Discharge Vital Signs Vital Signs: Vital Signs Temperature 97.9 F 11/22/24 14:44 Pulse Rate 98 11/22/24 14:44 Respiratory Rate 18 11/22/24 14:44 Blood Pressure 134/78 11/22/24 14:44 Pulse Oximetry 98 11/22/24 14:44 Oxygen Delivery Room Air 11/22/24 14:44 Temperature 97.9 F 11/22/24 14:44 Pulse Rate 90 11/22/24 20:09 Respiratory Rate 14 11/22/24 20:09 Blood Pressure 136/79 11/22/24 20:09 Pulse Oximetry 97 11/22/24 20:09 Oxygen Delivery Room Air 11/22/24 14:44 Lab Data 11/22/24 15:26 11/22/24 15:26 Labs: Lab Results 11/22/24 11/22/24 11/22/24 Range/Units 15:26 15:34 16:33 WBC 5.9 (4.5-10.0) K/mm3 RBC 4.22 L (4.6-6.20) M/mm3 Hgb 14.0 (14.0-18.0) g/dL Hct 40.6 L (42.0-52.0) % MCV 96.2 (80-100) fl MCH 33.2 (26-34) pg MCHC 34.5 (32-36) g/dl RDW 12.4 (11.5-14.5) % Plt Count 198 (150-375) k/mm3 MPV 9.9 (7.4-10.4) fl Immature Gran % (Auto) 0.2 (0-0.5) % Neut % (Auto) 55.1 (45.5-73.1) % Lymph % (Auto) 26.7 (18.3-44.2) % [place] % (Auto) 15.3 H (2.6-8.5) % Eos % (Auto) 2.0 (0-4.4) % Baso % (Auto) 0.7 (0.2-1.2) % Lymph # (Auto) 1.57 (0.9-3.2) K/mm3 [place] # (Auto) 0.9 H (0.1-0.6) K/mm3 Eos # (Auto) 0.1 (0-0.3) K/mm3 Baso # (Auto) 0.0 (0.0-0.1) K/mm3 Abs Immat Gran (auto) 0.01 (0.00-0.031) K/mm3 Absolute Neuts (auto) 3.2 (1.3-6.7) K/mm3 Absolute Nucleated RBC 0.000 (0.0-0.012) K/mm3 Nucleated RBC % 0.0 (0.0-0.2) % PT 15.0 H (11.1-14.7) Seconds INR 1.1 APTT 35.9 (22.3-36.8) Seconds Sodium 140 (137-145) mmol/L Potassium 3.7 (3.4-5.0) mmol/L Chloride 102 (98-107) mmol/L Carbon Dioxide 23 (22-30) mmol/L Anion Gap 15 H (4-12) mmol/L BUN 8 L (9-20) mg/dL Creatinine 0.80 (0.7-1.3) mg/dL Estim Creat Clear Calc 120 ml/min Estimated GFR > 60 (59 - ) Glucose 100 (65-110) mg/dL POC Capillary Glucose 98 (65-105) mg/dl Calcium 8.8 (8.4-10.2) mg/dL Phosphorus 3.6 (2.5-4.5) mg/dL Magnesium 1.8 (1.6-2.3) mg/dL Total Bilirubin 0.4 (0.2-1.3) mg/dL AST 34 (17-59) U/L ALT 36 (6-50) U/L Alkaline Phosphatase 99 (38-126) U/L Total Protein 8.0 (6.3-8.2) g/dL Albumin 4.2 (3.5-5.1) g/dL Lipase 140 (23-300) U/L Urine Color Yellow (Yellow) Urine Appearance Clear (Clear) Urine pH 5.0 (5.0-9.0) Ur Specific [place] 1.015 (1.001-1.035) Urine Protein Negative (Negative) mg/dL Urine Glucose (UA) Negative (Negative) mg/dL Urine Ketones Negative (Negative) mg/dL Ur Blood (Man) Negative (Negative) Urine Nitrate Negative (Negative) Urine Bilirubin Negative (Negative) Urine Urobilinogen 0.2 (<2.0) mg/dL Leukocyte Esterase Rfl Negative (Negative) DANIE/UL Blood Type B Positive Antibody Screen Negative Discharge Plan Discharge Clinical Impression: Epigastric pain, Edema of both lower extremities Patient Disposition: Home, Self-Care Condition: Stable Instructions: Antibiotic Form, Leg Edema (ED), Abdominal Pain (ED) Additional Instructions: Lukas was seen for epigastric pain and lower extremity edema. His epigastric pain is likely gastritis and GERD. He can continue his PPI and Carafate. Please follow-up with Dr. Cat for further management. He has also had some swelling of his lower extremities. You can increase his Lasix to 80 mg b.i.d. for the next 5 days. You could also consider switching him to Bumex if Lasix is no longer working. If his swelling continues to get worse or he develops signs of infection please have him return to the ED for re-evaluation. Patient Language: Tamazight Prescriptions: No Action folic acid 1 mg tablet 1 mg PO DAILY Qty: 30 0RF thiamine HCl (vitamin B1) 100 mg Tablet 100 mg PO DAILY ferrous sulfate 325 mg (65 mg iron) Tablet 325 mg PO DAILY Xifaxan 550 mg tablet 550 mg PO BID spironolactone [Aldactone] 50 mg tablet 100 mg PO DAILY furosemide [Lasix] 20 mg tablet 60 mg PO BID sucralfate 100 mg/mL suspension 10 ml PO TID diclofenac sodium 1 % Gel 2 g TOPICAL BID PRN (Reason: Pain) Rx Instructions: ANYWHERE ON THE BODY magnesium oxide 400 mg tablet 400 mg PO HS propranolol 10 mg tablet 10 mg PO BID Eliquis DVT-PE Treat 30D Start 5 mg (74 tabs) tablets,dose pack See Rx Instructions .ROUTE .COMPLEX Qty: 74 0RF Rx Instructions: orally per package directions lidocaine [Aspercreme (lidocaine)] 4 % Adhesive Patch,Medicated 1 patch TOPICAL DAILY Rx Instructions: Apply to Rt. Upper quadrant of abdomen Lactobacillus acidophilus Tablet 1,000 mmu cells PO BID Biofreeze (menthol) 5 % Adhesive Patch,Medicated 1 patch TOPICAL DAILY Rx Instructions: 1 patch to abdomen haloperidol 5 mg tablet 2.5 mg PO BID gabapentin 400 mg capsule 400 mg PO TID simethicone 80 mg Tablet,Chewable 80 mg PO BID PRN (Reason: Abdominal Discomfort) wtzcswjb-smjut-heukmzn-diperod Ointment 1 ea TOPICAL QID lidocaine HCl [Aspercreme (lidocaine HCl)] 4 % cream 1 applic topical DAILY calcium carbonate [Antacid (calcium carbonate)] 200 mg calcium (500 mg) tablet,chewable 200 mg PO TID alum-mag hydroxide-simeth [Advanced Antacid-Antigas] 200-200-20 mg/5 mL suspension 30 ml PO QID PRN (Reason: indigestion) lorazepam 1 mg tablet 1 mg PO Q6H hydrocodone-acetaminophen 10-325 mg tablet 1 tablet PO Q6H PRN (Reason: pain) melatonin 3 mg Tablet 3 mg PO HS calcium carbonate 500 mg calcium (1,250 mg) Tablet,Chewable 500 mg PO TID Rx Instructions: With Meals cholecalciferol (vitamin D3) 125 mcg (5,000 unit) Tablet 125 mcg PO DAILY potassium chloride 20 mEq Tablet Extended Release 20 meq PO DAILY trazodone 50 mg tablet 50 mg PO QHS prazosin 1 mg capsule 1 mg PO QID ondansetron HCl 4 mg Tablet 4 mg PO Q8H PRN (Reason: nausea/vomiting) bupropion HCl 100 mg tablet 100 mg PO TID lactulose 10 gram/15 mL solution 30 ml PO TID buspirone 5 mg tablet 15 mg PO TID baclofen 10 mg tablet 10 mg PO BID hydroxyzine HCl 25 mg tablet 25 mg PO TID apixaban 5 mg tablet 5 mg PO BID Qty: 30 0RF Follow-up/Referrals: Eric Oconnell MD [Physician] - 1 Week (Epigastric pain) Teodoro Lopez MD [Primary Care Provider] -
--- OUTSIDE RECORDS SUMMARY | 2024-11-22 16:40 | XMS_ITS | Clinical Summary ---
Author Organization [facility] Address [address] [place] [address] Care Team Providers Care Uptwister Tender Name Role Phone Eric Oconnell MD Unavailable [phone] Teodoro Lopez Primary Care Provider Unavailabl e Source Comments [facility],non-owned Affiliates and Associated Physician Practices is amultiple site organization consisting of ambulatory clinics and hospital sitesin [place], [place], [place] and [place]. This disclosure is being madepursuant to the Care Everywhere program and may not contain all information available regarding this patient. Last updated 18.[facility] Allergies Active Allergy Reactions Criticality Noted Date [...] affected area as needed Active HYDROcodone-acetamin ophen ([place]) 5-325 MG tablet Take 1 (one) tablet [...] Contact Info) Description 11/29/2024 8:30 AM HR SPECIALIST Office Visit [facility] - Orthopedic Surgery [address] [facility] [place] [address] Toño Cabrera MD [address] [facility] [address] [place] [address] 01/08/2025 8:00 AM CDT Appointment [facility] [address] [place] [phone] 01/08/2025 9:00 AM CDT Office Visit [facility] - GI [address] [facility] [place] [phone] Amos Pabon MD [address] [place] [address] [place] [address] Health Maintenance Due Date Last Done Comments LIPID TESTING 1984 MEDICARE AWV ? 12 MONTHS 1984 HIV SCREENING 1999 DTAP/TDAP/TD VACCINES (1 - Tdap) 2003 HEPATITIS B VACCINE (1 of 3 - 19+ 3-dose series) 2003 PNEUMOCOCCAL VACCINE (1 of 2 - PCV) 2003 COVID-19 VACCINE (4 - 2023- season) [...] patient's age to complete this topic MENINGOCOCCAL (Group B) VACCINE Aged Out No longer eligible based on patient's age to complete [...] HEPATITIS C ANTIBODY Routine 10/01/2021 11:38 AM HR SPECIALIST Cirrhosis of liver with ascites, unspecified hepatic cirrhosis type (HCC) from Last 3 Months or Most Recently Relevant to Health Maintenance Results * (ABNORMAL) COMPREHENSIVE METABOLIC PANEL (03/29/2024 4:30 AM CDT) BUN 10 7 - 26 mg/dL 03/29/2024 5:09 AM [facility] Creatinine 0.84 0.71 - 1.16 mg/dL 03/29/2024 5:09 AM [facility] Sodium 135(L) 136 - 145 mmol/L 03/29/2024 5:09 AM [facility] Potassium 3.8 3.5 - 4.5 mmol/L 03/29/2024 5:09 AM [facility] Chloride 105 98 - 107 mmol/L 03/29/2024 5:09 AM [facility] CO2 22 22 - 29 mmol/L 03/29/2024 5:09 AM [facility] Glucose 87 70 - 115 mg/dL 03/29/2024 5:09 AM [facility] Calcium 9.6 8.4 - 10.2 mg/dL 03/29/2024 5:09 AM [facility] Protein Total 7.6 6.0 - 8.3 g/dL 03/29/2024 5:09 AM [facility] Albumin 3.8 3.4 - 5.0 g/dL 03/29/2024 5:09 AM [facility] Bilirubin Total 0.9 0.2 - 1.2 mg/dL 03/29/2024 5:09 AM [facility] Alkaline Phosphatase 81 40 - 150 U/L 03/29/2024 5:09 AM [facility] ALT 20 5 - 55 U/L 03/29/2024 5:09 AM [facility] AST 17 5 - 34 U/L 03/29/2024 5:09 AM [facility] Anion Gap 8 6 - 16 03/29/2024 5:09 AM [facility] BUN/Creatinine Ratio 12 7 - 23 03/29/2024 5:09 AM [facility] Osmolality Calculated 278 275 - 295 mOsm/kg 03/29/2024 5:09 AM [facility] Albumin/Globulin Ratio 1.0(L) 1.1 - 2.3 03/29/2024 5:09 AM [facility] eGFR by CKD-EPI >90 >=90 mL/min/1.7 3 m2 03/29/2024 5:09 AM [facility] Blood BLOOD SPECIMEN / Unknown Lab Venipuncture / Unknown 03/29/2024 4:30 AM CDT 03/29/2024 4:41 AM CDT Isaak Ibrahim MD LAB - CHEMISTRY KURT [facility]ARAGO[facility] Performing Organization Address City/[facility]/ZIP Co de Phone Number [facility] [address] [place] [address], [place] [phone] * HEPATITIS C ANTIBODY (10/01/2021 11:38 AM HR SPECIALIST) Hepatitis C Antibody Non-react young Non-reac tive 10/01/2021 1:14 PM HR SPECIALIST [facility] Comment:Hepatitis C Antibody screen indicates no serologic evidence of past or current infection with Hepatitis C Virus. Patients with unexplained liver disease who are immunocompromised or suspected of having acute Hepatitis C infection may benefit from Nucleic Acid Test (MARIBELL) for Hepatitis C Viral RNA to confirm Hepatitis C status. Blood BLOOD SPECIMEN / Unknown Lab Venipuncture / Unknown 10/01/2021 11:38 AM HR SPECIALIST 10/01/2021 11:46 AM HR SPECIALIST Amos Pabon MD LAB - CHEMISTRY [facility] Performing Organization Address City/[facility]/ZIP Co de Phone Number [address] [address], [place] [phone] from Last 3 Months or Most Recently Relevant to Health Maintenance Advance Directives * Full Code (Latest Code Status on File) Date Activated Date Inactivated Comments 03/29/2024 12:13 AM 03/29/2024 11:54 PM Care Teams Uptwister Tender Relationship Specialty Start Date End Date Teodoro Lopez PCP - General 05/17/24 Eric Oconnell MD Hospitalist 10/10/21
--- OUTSIDE RECORDS SUMMARY | 2024-11-22 16:40 | XMS_ITS | Referral Summary ---
Author Organization [facility] Address [address] [place] [address] Care Team Providers Care Warehouse Forklift Operator Name Role Phone Eric Oconnell MD Unavailable [phone] Teodoro Lopez Primary Care Provider Unavailabl e Source Comments [facility],non-owned Affiliates and Associated Physician Practices is amultiple site organization consisting of ambulatory clinics and hospital sitesin [place], [place], [place] and [place]. This disclosure is being madepursuant to the Care Everywhere program and may not contain all information available regarding this patient. Last updated 18.[facility] Encounters Date Type Department Care Team [...] affected area as needed Active HYDROcodone-acetamin ophen ([place]) 5-325 MG tablet Take 1 (one) tablet [...] st Contact Info) Description 11/29/2024 8:30 AM COIN PURSE FRAMER Office Visit [facility] - Orthopedic Surgery [address] [place] [phone] Toño Cabrera MD [address] [facility] [address] [place] [address] 01/08/2025 8:00 AM CDT Appointment [address] [phone] 01/08/2025 9:00 AM CDT Office Visit [facility] - GI [address] [facility] [place] [phone] Amos Pabon MD [facility] [place] [address] Goals Goal Patient Goal Type Associated Problems [...] HEPATITIS C ANTIBODY Routine 10/01/2021 11:38 AM COIN PURSE FRAMER Cirrhosis of liver with ascites, unspecified hepatic cirrhosis type (HCC) from Last 3 Months or Most Recently Relevant to Health Maintenance Results * (ABNORMAL) COMPREHENSIVE METABOLIC PANEL (03/29/2024 4:30 AM CDT) BUN 10 7 - 26 mg/dL 03/29/2024 5:09 AM [facility] Creatinine 0.84 0.71 - 1.16 mg/dL 03/29/2024 5:09 AM [facility] Sodium 135(L) 136 - 145 mmol/L 03/29/2024 5:09 AM [facility] Potassium 3.8 3.5 - 4.5 mmol/L 03/29/2024 5:09 AM [facility] Chloride 105 98 - 107 mmol/L 03/29/2024 5:09 AM [facility] CO2 22 22 - 29 mmol/L 03/29/2024 5:09 AM [facility] Glucose 87 70 - 115 mg/dL 03/29/2024 5:09 AM [facility] Calcium 9.6 8.4 - 10.2 mg/dL 03/29/2024 5:09 AM [facility] Protein Total 7.6 6.0 - 8.3 g/dL 03/29/2024 5:09 AM [facility] Albumin 3.8 3.4 - 5.0 g/dL 03/29/2024 5:09 AM [facility] Bilirubin Total 0.9 0.2 - 1.2 mg/dL 03/29/2024 5:09 AM [facility] Alkaline Phosphatase 81 40 - 150 U/L 03/29/2024 5:09 AM [facility] ALT 20 5 - 55 U/L 03/29/2024 5:09 AM [facility] AST 17 5 - 34 U/L 03/29/2024 5:09 AM [facility] Anion Gap 8 6 - 16 03/29/2024 5:09 AM [facility] BUN/Creatinine Ratio 12 7 - 23 03/29/2024 5:09 AM [facility] Osmolality Calculated 278 275 - 295 mOsm/kg 03/29/2024 5:09 AM [facility] Albumin/Globulin Ratio 1.0(L) 1.1 - 2.3 03/29/2024 5:09 AM [facility] eGFR by CKD-EPI >90 >=90 mL/min/1.7 3 m2 03/29/2024 5:09 AM [facility] Blood BLOOD SPECIMEN / Unknown Lab Venipuncture / Unknown 03/29/2024 4:30 AM [facility] 03/29/2024 4:41 AM [facility] Isaak Ibrahim MD LAB - CHEMISTRY [facility]URT [facility] Organization Address City/State/ZIP Co de Phone Number [facility] [address] [place] [id number], [facility] [phone] * HEPATITIS C ANTIBODY (10/01/2021 11:38 AM COIN PURSE FRAMER) Hepatitis C Antibody Non-react young Non-reac tive 10/01/2021 1:14 PM COIN PURSE FRAMER [facility] Comment:Hepatitis C Antibody screen indicates no serologic evidence of past or current infection with Hepatitis C Virus. Patients with unexplained liver disease who are immunocompromised or suspected of having acute Hepatitis C infection may benefit from Nucleic Acid Test (MARIBELL) for Hepatitis C Viral RNA to confirm Hepatitis C status. Blood BLOOD SPECIMEN / Unknown Lab Venipuncture / Unknown 10/01/2021 11:38 AM COIN PURSE FRAMER 10/01/2021 11:46 AM COIN PURSE FRAMER Amos Pabon MD LAB - CHEMISTRY KURT [facility]ARAG[facility] [address] [place] [address], [facility] [phone] from Last 3 Months or Most Recently Relevant to Health Maintenance Advance Directives * Full Code (Latest Code Status on File) Date Activated Date Inactivated Comments 03/29/2024 12:13 AM 03/29/2024 11:54 PM Care Teams Warehouse Forklift Operator Relationship Specialty Start Date End Date Teodoro Lopez PCP - General 05/17/24 Eric Oconnell MD Hospitalist 10/10/21
--- OUTSIDE RECORDS SUMMARY | 2024-11-22 16:41 | XMS_ITS | Patient Health Summary ---
Author Organization [facility] Address [address] [place] [address] Care Team Providers Care Inventory Transcriber Name Role Phone Eric Oconnell MD Unavailable [phone] Teodoro Lopez Primary Care Provider Unavailabl e Note from [facility],non-owned Affiliates and Associated Physician Practices is amultiple site organization consisting of ambulatory clinics and hospital sitesin [place], [place], [place] and [place]. This disclosure is being madepursuant to the Care Everywhere program and may not contain all information available regarding this patient. Last updated 18.[facility] Allergies * Mushroom Extract Complex(Other) * Peanut-Derived(Anaphylaxis) [...] to affected area as needed * HYDROcodone-acetaminophen ([place]) 5-325 MG tablet Take 1 (one) tablet [...] 33.28 03/28/2024 6:10 PM CDT Procedures * TN DRAIN/INJECT LARGE JOINT/BURSA(Performed 05/17/2024) Performed for Primary osteoarthritis of both knees * TN DRAIN/INJECT LARGE JOINT/BURSA(Performed 05/17/2024) Performed for Primary [...] 03/28/2024) Performed for Shortness of breath * TN DRAIN/INJECT LARGE JOINT/BURSA(Performed 02/16/2024) Performed for Primary osteoarthritis of both knees * TN DRAIN/INJECT LARGE JOINT/BURSA(Performed 02/16/2024) Performed for Primary osteoarthritis of both knees * TN DRAIN/INJECT LARGE JOINT/BURSA(Performed 11/17/2023) Performed for Primary osteoarthritis of left knee * US ABDOMEN LIMITED(Performed 08/25/2023) Performed for Cirrhosis of liver with ascites, unspecified hepatic cirrhosis type (HCC) * VITAMIN D HYDROXY (EXTERNAL RESULT)(Performed 08/12/2023) * CBC W DIFF (EXTERNAL RESULT ENTRY)(Performed 08/12/2023) * COMP MET PANEL (EXTERNAL RESULT ENTRY)(Performed 08/12/2023) * TN DRAIN/INJECT LARGE JOINT/BURSA(Performed 06/29/2023) Performed for Primary osteoarthritis of left knee * PT INR (EXTERNAL RESULT ENTRY)(Performed 02/22/2023) * COMP MET PANEL (EXTERNAL RESULT ENTRY)(Performed 02/22/2023) * CBC W DIFF (EXTERNAL RESULT ENTRY)(Performed 02/22/2023) * TN DRAIN/INJECT LARGE JOINT/BURSA(Performed 02/16/2023) Performed for Primary osteoarthritis of left knee * TN DRAIN/INJECT LARGE JOINT/BURSA(Performed 08/11/2022) Performed for Left knee pain, unspecified chronicity, Primary osteoarthritis of left knee * XR KNEE LEFT 4VW OR MORE(Performed 08/11/2022) Performed for Left knee pain, unspecified chronicity * TN ED EGD FLEX TRANSORAL DX(Performed 06/18/2022) Performed for Chronic gastric ulcer without hemorrhage and without perforation * EGD(Performed 06/18/2022) * PATHOLOGY TISSUE(Performed 03/05/2022) Performed for Other cirrhosis of liver (HCC) * TN ED EGD FLEX TRANSORAL DX(Performed 03/05/2022) Performed [...] ascites, unspecified hepatic cirrhosis type (HCC) * [id number] BLOOD(Performed 10/01/2021) Performed for Cirrhosis of liver [...] DIFF (EXTERNAL RESULT ENTRY)(Performed 05/14/2021) Results * TN DRAIN/INJECT LARGE JOINT/BURSA (05/17/2024 3:13 PM CDT) Narrative Toño Cabrera MD - 05/17/2024 3:13 PM CDT Toño Cabrera MD ? 05/17/2024 ??3:13 PM Orthopaedic Surgery Procedure Note Lukas Diaz [id number] Diagnosis: Left knee pain Procedure: Injection of [...] Cabrera MD PROCEDURE/MINOR TRUDI GICAL ORDERABLES * TN DRAIN/INJECT LARGE JOINT/BURSA (05/17/2024 3:12 PM CDT) Narrative Toño Cabrera MD - 05/17/2024 3:12 PM CDT Toño Cabrera MD ? 05/17/2024 ??3:13 PM Orthopaedic Surgery Procedure Note Lukas Diaz [id number] Diagnosis: Right knee pain Procedure: Injection of [...] OF EXAM: ??05/17/2024 12:11 PM, LOCATION ??[facility] INDICATION: M17.0: Bilateral primary osteoarthritis of [...] OF EXAM: 05/17/2024 12:11 PM, LOCATION [facility] INDICATION: M17.0: Bilateral primary osteoarthritis of [...] (mg/dL) <10 <10 mg/dL 12:36 PM CDT [facility] Ethanol Calculated (g/dL) <0.010 <=0.010 g/dL 03/29/2024 12:36 PM CDT [facility] Blood BLOOD SPECIMEN / Unknown Venipuncture / Unknown 03/29/2024 12:08 PM CDT 03/29/2024 12:16 PM CDT Narrative [facility] - 03/29/2024 12:36 PM CDT Ethanol Interp <10: None Detected. Depression of TAVERN KEEPER: >100 mg/dl Potentially Critical: >250 mg/dl Potentially [...] - CHEMISTR Y ORDERABLES Performing Organization Address City/[facility]/ZIP Co de Phone Number [facility] [address] [place] [address], [facility] [phone] * CULTURE BLOOD (03/29/2024 4:31 AM CDT) Only the most recent of2 resultswithin the time period is included. Culture No growth day 5 DEVAUGHN 04/03/2024 8:01 AM CDT [facility] Blood PERIPHERAL BLOOD / Unknown Lab Venipuncture / Unknown 03/29/2024 4:31 AM CDT 03/29/2024 4:37 AM CDT Isaak Ibrahim MD LAB - MICROBIOLOGY O RDERABLES Performing Organization Address City/[facility]/ZIP Co de Phone Number [facility] [address] [place] [address], [facility] [phone] * CBC W/O DIFFERENTIAL (03/29/2024 4:30 AM CDT) Only the most recent of4 resultswithin the time period is included. WBC 8.7 4.0 - 10.7 x10E9/L 03/29/2024 5:08 AM CDT [facility] RBC Count 4.81 4.30 - 5.80 x10E12/L 03/29/2024 5:08 AM CDT [facility] Hemoglobin 15.3 13.3 - 17.5 g/dL 03/29/2024 5:08 AM CDT [facility] Hematocrit 43.4 38.7 - 51.1 % 03/29/2024 5:08 AM [facility] MCV 90.2 80.0 - 98.0 fL 03/29/2024 5:08 AM [facility] MCH 31.8 26.7 - 33.6 pg 03/29/2024 5:08 AM [facility] MCHC 35.3 31.7 - 36.3 g/dL 03/29/2024 5:08 AM [facility] RDW-CV 12.1 11.3 - 14.8 % 03/29/2024 5:08 AM [facility] Platelet Count 178 150 - 420 x10E9/L 03/29/2024 5:08 AM [facility] MPV 10.5 7.8 - 11.4 fL 03/29/2024 5:08 AM [facility] Blood BLOOD SPECIMEN / Unknown Lab Venipuncture / Unknown 03/29/2024 4:30 AM CDT 03/29/2024 4:42 AM CDT Isaak Ibrahim MD LAB - HEMATOLOGY ORD ERABLES [facility] [address] [place] [address], [facility] [phone] * (ABNORMAL) COMPREHENSIVE METABOLIC PANEL (03/29/2024 4:30 AM CDT) Only the most recent of4 resultswithin the time period is included. BUN 10 7 - 26 mg/dL 03/29/2024 5:09 AM [facility] Creatinine 0.84 0.71 - 1.16 mg/dL 03/29/2024 5:09 AM [facility] Sodium 135(L) 136 - 145 mmol/L 03/29/2024 5:09 AM [facility] Potassium 3.8 3.5 - 4.5 mmol/L 03/29/2024 5:09 AM [facility] Chloride 105 98 - 107 mmol/L 03/29/2024 5:09 AM [facility] CO2 22 22 - 29 mmol/L 03/29/2024 5:09 AM [facility] Glucose 87 70 - 115 mg/dL 03/29/2024 5:09 AM [facility] Calcium 9.6 8.4 - 10.2 mg/dL 03/29/2024 5:09 AM [facility] Protein Total 7.6 6.0 - 8.3 g/dL 03/29/2024 5:09 AM [facility] Albumin 3.8 3.4 - 5.0 g/dL 03/29/2024 5:09 AM [facility] Bilirubin Total 0.9 0.2 - 1.2 mg/dL 03/29/2024 5:09 AM [facility] Alkaline Phosphatase 81 40 - 150 U/L 03/29/2024 5:09 AM [facility] ALT 20 5 - 55 U/L 03/29/2024 5:09 AM [facility] AST 17 5 - 34 U/L 03/29/2024 5:09 AM [facility] Anion Gap 8 6 - 16 03/29/2024 5:09 AM [facility] BUN/Creatinine Ratio 12 7 - 23 03/29/2024 5:09 AM [facility] Osmolality Calculated 278 275 - 295 mOsm/kg 03/29/2024 5:09 AM [facility] Albumin/Globulin Ratio 1.0(L) 1.1 - 2.3 03/29/2024 5:09 AM [facility] eGFR by CKD-EPI >90 >=90 mL/min/1.7 3 m2 03/29/2024 5:09 AM [facility] Blood BLOOD SPECIMEN / Unknown Lab Venipuncture / Unknown 03/29/2024 4:30 AM CDT 03/29/2024 4:41 AM T Isaak Ibrahim MD LAB - CHEMISTRY KURT ZARAGOZA [facility] Organization Address City/State/ZIP Co de Phone Number [facility] [address] [place] [address], [facility] [phone] * PHOSPHORUS BLOOD (03/29/2024 4:30 AM CDT) Phosphorus 2.9 2.8 - 5.1 mg/dL 03/29/2024 5:09 AM CDT [facility] Blood BLOOD SPECIMEN / Unknown Lab Venipuncture / Unknown 03/29/2024 4:30 AM CDT 03/29/2024 4:41 AM CDT Isaak Ibrahim MD LAB - CHEMISTRY KURT ZARAGOZA Performing Organization Address City/[facility]/ZIP Co de Phone Number [facility] [address] [place] [address], [place] [phone] * MAGNESIUM BLOOD (03/29/2024 4:30 AM CDT) Only the most recent of2 resultswithin the time period is included. Magnesium 2.1 1.6 - 2.6 mg/dL 03/29/2024 5:09 AM CDT [facility] Blood BLOOD SPECIMEN / Unknown Lab Venipuncture / Unknown 03/29/2024 4:30 AM CDT 03/29/2024 4:41 AM CDT Isaak Ibrahim MD LAB - CHEMISTRY KURT ZARAGOZA Performing Organization Address [facility]/ZIP Co de Phone Number [address] [address], [place] [phone] * LIPASE BLOOD (03/29/2024 4:30 AM CDT) Only the most recent of2 resultswithin the time period is included. Lipase 13 8 - 78 U/L 03/29/2024 5:09 AM CDT [facility] Blood BLOOD SPECIMEN / Unknown Lab Venipuncture / Unknown 03/29/2024 4:30 AM CDT 03/29/2024 4:41 AM CDT Narrative [facility] - 03/29/2024 5:09 AM CDT Lipase results from the [employer] Alinity analyzer may not be comparable with other methodologies. Isaak Ibrahim MD LAB - CHEMISTRY KURT ZARAGOZA [facility] [address] [place] [address], [facility] [phone] * (ABNORMAL) URINALYSIS REFLEX MICROSCOPIC REFLEX CULTURE (03/29/2024 3:54 AM CDT) Color UA Colorless(A) Straw, Yellow 03/29/2024 4:19 AM [facility] Clarity UA Clear Clear 03/29/2024 4:19 AM T [facility] Specific Carefree UA 1.009 1.005 - 1.030 03/29/2024 4:19 AM [facility] pH UA 7.0 5.0 - 8.0 pH 03/29/2024 4:19 AM [facility] Protein UA Negative Negative 03/29/2024 4:19 AM [facility] Glucose UA Negative Negative 03/29/2024 4:19 AM [facility] Ketone UA Negative Negative 03/29/2024 4:19 AM [facility] Bilirubin UA Negative Negative 03/29/2024 4:19 AM [facility] Blood UA Negative Negative 03/29/2024 4:19 AM [facility] Nitrite UA Negative Negative 03/29/2024 4:19 AM [facility] Leukocyte Esterase Negative Negative 03/29/2024 4:19 AM [facility] Urobilinogen UA Negative Negative mg/dL 03/29/2024 4:19 AM [facility] Comment UA Microscopic not indicated. 03/29/2024 4:19 AM [facility] Urine URINE SPECIMEN OBTAINED BY CLEAN CATCH PROCEDURE / Unknown Collection / Unknown 03/29/2024 3:54 AM CDT 03/29/2024 3:56 AM T Narrative [facility] - 03/29/2024 4:19 AM CDT Isaak Ibrahim MD LAB - URINALYSIS ORD ERABLES [facility] [address] [place] [address], [facility] [phone] * XR FEMUR LEFT 2VW (03/29/2024 12:13 AM CDT) Only the most recent of3 resultswithin the time period is included. Anatomical Region Laterality Modality Lower Extremity Radiographic Юлия ging 03/29/2024 1:16 AM CDT Narrative 03/29/2024 11:37 AM CDT PROCEDURE: ??XR FEMUR LEFT 2VW, DATE/TIME OF EXAM: ??03/29/2024 12:13 AM, LOCATION ??[facility] INDICATION: R06.02: Shortness of breath ADDITIONAL CLINICAL [...] DATE/TIME OF EXAM: 03/29/2024 12:13 AM, LOCATION [facility] INDICATION: R06.02: Shortness of breath ADDITIONAL CLINICAL [...] head. > Dictated by Chad Francisco DO (surgeon/president). I, Ramiro Naranjo MD have personally reviewed and interpreted this examination/study. > Interpreting Provider: Ramiro Naranjo MD on 03/29/2024 2:30 AM Narrative 03/29/2024 2:30 AM CDT PROCEDURE: ??CT ABDOMEN PELVIS W CONTRAST, DATE/TIME OF EXAM: ??03/29/2024 12:00 AM, LOCATION ??[facility] INDICATION: R06.02: Shortness of breath ADDITIONAL CLINICAL [...] DATE/TIME OF EXAM: 03/29/2024 12:00 AM, LOCATION [facility] INDICATION: R06.02: Shortness of breath ADDITIONAL CLINICAL [...] femoralhead. > Dictated by Chad Francisco DO (surgeon/president). I, Ramiro Naranjo MD have personally reviewed and interpreted this examination/study. > Interpreting Provider: Ramiro Naranjo MD on 03/29/2024 2:30 AM Isaak Ibrahim MD CT ORDERABLES * PT-INR [facility] (03/28/2024 7:13 PM CDT) Only the most recent of4 resultswithin the time period is included. PT 13.8 12.1 - 14.8 Seconds 03/28/2024 7:44 PM CDT [facility] INR 1.1 See Comment 03/28/2024 7:44 PM [facility] Comment:The suggested therap eutic range for standard coumadin (warfarin) therapy is an INR of 2.0-3.0. For high-risk patients (Mechanical Mitral Valve Prosthesis, etc.), the suggested prophylactic therapeutic range is an INR of 2.5-3.5. Blood BLOOD SPECIMEN / Unknown Venipuncture / Unknown 03/28/2024 7:13 PM CDT 03/28/2024 7:16 PM CDT Linda Leslie ARCHIVES SPECIALIST-BOWLING BALL ENGRAVER LAB - COAGUL ATION ORDERABLES [facility] [address] [place] [address], [facility] [phone] * (ABNORMAL) DIFFERENTIAL MANUAL (03/28/2024 7:13 PM CDT) Neutrophil % 72 41 - 74 % 03/28/2024 8:38 PM [facility] Lymphocyte % 16(L) 17 - 47 % 03/28/2024 8:38 PM [facility] Monocyte % 12(H) 3 - 11 % 03/28/2024 8:38 PM [facility] Neutrophil Absolute 9.79(H) 1.60 - 7.50 x10E9/L 03/28/2024 8:38 PM [facility] Lymphocyte Absolute 2.18 1.00 - 4.40 x10E9/L 03/28/2024 8:38 PM [facility] Monocyte Absolute 1.63(H) 0.15 - 1.00 x10E9/L 03/28/2024 8:38 PM [facility] RBC Morphology NORMAL 03/28/2024 8:38 PM [facility] Large Platelets PRESENT(A) (none) 8:38 PM [facility] Blood BLOOD SPECIMEN / Unknown Venipuncture / Unknown 03/28/2024 7:13 PM CDT 03/28/2024 7:18 PM CDT Linda Leslie ARCHIVES SPECIALIST-BOWLING BALL ENGRAVER LAB - HEMATO LOGY ORDERABLES [facility] [address] [place] [address], [facility] [phone] * (ABNORMAL) CBC W AUTO DIFFERENTIAL (03/28/2024 7:13 PM CDT) Only the most recent of2 resultswithin the time period is included. WBC 13.6(H) 4.0 - 10.7 x10E9/L 03/28/2024 8:38 PM CDT [facility] RBC Count 4.92 4.30 - 5.80 x10E12/L 03/28/2024 8:38 PM CDT [facility] Hemoglobin 15.7 13.3 - 17.5 g/dL 03/28/2024 8:38 PM T [facility] Hematocrit 43.9 38.7 - 51.1 % 03/28/2024 8:38 PM T [facility] MCV 89.2 80.0 - 98.0 fL 03/28/2024 8:38 PM CDT [facility] MCH 31.9 26.7 - 33.6 pg 03/28/2024 8:38 PM T [facility] MCHC 35.8 31.7 - 36.3 g/dL 03/28/2024 8:38 PM CDT [facility] RDW-CV 11.9 11.3 - 14.8 % 03/28/2024 8:38 PM T [facility] Platelet Count 175 150 - 420 x10E9/L 03/28/2024 8:38 PM T [facility] MPV 9.7 7.8 - 11.4 fL 03/28/2024 8:38 PM T [facility] Blood BLOOD SPECIMEN / Unknown Venipuncture / Unknown 03/28/2024 7:13 PM CDT 03/28/2024 7:18 PM CDT Linda Leslie ARCHIVES SPECIALIST-BOWLING BALL ENGRAVER LAB - HEMATO LOGY ORDERABLES [facility] [address] [place] [address], [facility] [phone] * AMMONIA (03/28/2024 7:13 PM CDT) Ammonia 37 <=72 umol/L 03/28/2024 7:40 PM CDT [facility] Blood BLOOD SPECIMEN / Unknown Venipuncture / Unknown 03/28/2024 7:13 PM CDT 03/28/2024 7:16 PM CDT Linda Leslie ARCHIVES SPECIALIST-BOWLING BALL ENGRAVER LAB - CHEMIS TRY ORDERABLES [facility] [address] [place] [address], [facility] [phone] * XR CHEST 1VW PORTABLE (03/28/2024 7:10 PM CDT) Anatomical Region Laterality Modality Chest Radiographic Юлия ging 03/28/2024 9:11 PM CDT Narrative 03/29/2024 6:21 AM CDT PROCEDURE: ??XR CHEST 1VW PORTABLE, DATE/TIME OF EXAM: ??03/28/2024 7:14 PM, LOCATION ??[facility] INDICATION: R06.02: Shortness of breath ADDITIONAL CLINICAL INFORMATION: Ordering Provider Reason For Exam: ??r/o effusion COMPARISON: None. FINDINGS/IMPRESSION: Mild bibasilar linear opacities, likely atelectasis. Superimposed aspiration or infection cannot be excluded. There is no pleural effusion or pneumothorax. The cardiomediastinal silhouette is normal. The visible bony thorax is intact. > Dictated by Lukas Francisco DO (Furnace Combustion Analyst) ILudin MD have personally reviewed and interpreted this examination/study. > Interpreting Provider: Ludin uNno MD on 03/29/2024 6:21 AM Procedure Note Ludin Nuno MD - 03/29/2024 PROCEDURE: XR CHEST 1VW PORTABLE, DATE/TIME OF EXAM: 03/28/2024 7:14 PM, LOCATION [facility] INDICATION: R06.02: Shortness of breath ADDITIONAL CLINICAL INFORMATION: Ordering Provider Reason For Exam: r/o effusion COMPARISON: None. FINDINGS/IMPRESSION: Mild bibasilar linear opacities, likely atelectasis. Superimposed aspiration or infection cannot be excluded. There is no pleural effusionor pneumothorax. The cardiomediastinal silhouette is normal. The visiblebony thorax is intact. > Dictated by Lukas Francisco DO (Furnace Combustion Analyst) I, Ludin Nuno MD have personally reviewed and interpreted this examination/study. > Interpreting Provider: Ludin Nuno MD on 03/29/2024 6:21 AM Linda Betancourt Anuj ARCHIVES SPECIALIST-BOWLING BALL ENGRAVER DIAGNOSTIC I MAGING ORDERABLES * TN DRAIN/INJECT LARGE JOINT/BURSA (02/16/2024 10:34 AM CDT) Narrative Toño Cabrera MD - 02/16/2024 10:34 AM CDT Toño Cabrera MD ? 02/16/2024 11:34 AM Orthopaedic Surgery Procedure Note Lukas Diaz [id number] Diagnosis: Left knee pain Procedure: Injection of [...] Cabrera MD PROCEDURE/MINOR TRUDI GICAL ORDERABLES * TN DRAIN/INJECT LARGE JOINT/BURSA (02/16/2024 10:34 AM CDT) Narrative Toño Cabrera MD - 02/16/2024 10:34 AM CDT Toño Cabrera MD ? 02/16/2024 11:34 AM Orthopaedic Surgery Procedure Note Lukas Diaz [id number] Diagnosis: Right knee pain Procedure: Injection of [...] Cabrera MD PROCEDURE/MINOR TRUDI GICAL ORDERABLES * TN DRAIN/INJECT LARGE JOINT/BURSA (11/17/2023 10:31 AM SECTION GANG) Narrative Toño Cabrera MD - 11/17/2023 10:31 AM SECTION GANG Toño Cabrera MD ? 11/17/2023 10:31 AM Orthopaedic Surgery Procedure Note Lukas Diaz [id number] Diagnosis: Left knee pain Procedure: Injection of [...] months. Report dictated by Hany Cornelius MD, (surgeon/president). I, Bina Perez MD have personally reviewed and interpreted this examination/study. > Interpreting Provider: Bina Perez MD on 08/25/2023 10:18 AM Narrative 08/25/2023 10:18 AM CDT PROCEDURE: ??US ABDOMEN LIMITED, DATE/TIME OF EXAM: ??08/25/2023 7:53 AM, LOCATION ??[facility] INDICATION: K74.60: Cirrhosis of liver with [...] DATE/TIME OF EXAM: 08/25/2023 7:53 AM, LOCATION [facility] INDICATION: K74.60: Cirrhosis of liver with [...] months. Report dictated by Hany Cornelius MD, (surgeon/president). I, Bina Perez MD have personally reviewed and interpreted this examination/study. > Interpreting Provider: Bina Perez MD on 08/25/2023 10:18 AM Klarissa Rutledge ARCHIVES SPECIALIST-BOWLING BALL ENGRAVER US ORDERABL ES * CBC W DIFF (EXTERNAL RESULT ENTRY) (08/12/2023 6:18 AM CDT) Only the most recent of6 resultswithin the time period is included. WBC (EXTERNAL RESULT) 9.2 10^3/ul [facility] Hemoglobin (EXTERNAL RESULT) 14.9 g/dl [facility] Hematocrit (EXTERNAL RESULT) 44.6 % [facility] Platelets (EXTERNAL RESULT) 179 10^3/ul [facility] Neutrophil Absolute (EXTERNAL RESULT) [facility] Blood BLOOD SPECIMEN / Unknown 08/12/2023 6:18 AM CDT Historical Provider LAB - HEMATOLOGY ORDERABLES [facility] [address] [place] [address], [facility] [phone] * VITAMIN D HYDROXY (EXTERNAL RESULT) (08/12/2023 6:18 AM CDT) Vitamin D Hydroxy (External Result) 75 [facility] Blood 08/12/2023 6:18 AM CDT Historical Provider LAB - CHEMISTRY O CAITLIN [facility] [address] [place] [address], [facility] [phone] * COMP MET PANEL (EXTERNAL RESULT ENTRY) (08/12/2023 6:18 AM CDT) Only the most recent of5 resultswithin the time period is included. Glucose (EXTERNAL) 87 mg/dL [facility] Sodium (EXTERNAL RESULT) 142 mmol/L [facility] Potassium (EXTERNAL RESULT) 4.3 mmol/L [facility] Chloride (EXTERNAL RESULT) 104 mmol/L [facility] CO2 (EXTERNAL) 29 mmol/L [facility] Calcium (EXTERNAL RESULT) 9.0 mg/dL [facility] Anion Gap (EXTERNAL RESULT) [facility] BUN (EXTERNAL RESULT) 12 mg/dL [facility] Creatinine (EXTERNAL RESULT) 0.8 mg/dl [facility] Alkaline Phosphatase (EXTERNAL RESULT) 70 U/L [facility] ALT (EXTERNAL RESULT) 20 U/L [facility] AST (EXTERNAL RESULT) 15 U/L [facility] Protein Total (EXTERNAL RESULT) 7.1 gm/dL [facility] Albumin (EXTERNAL RESULT) 4.0 gm/dL [facility] Bilirubin Total (EXTERNAL RESULT) 0.5 mg/dL [facility] eGFR MDRD (EXTERNAL RESULT) 80 mL/min/1.7 3m2 [facility] eGFR (EXTERNAL) 97 mL/min/1.7 3m2 [facility] Blood BLOOD SPECIMEN / Unknown 08/12/2023 6:18 AM CDT Historical Provider LAB - CHEMISTRY O [facility] [address] [address], [facility] [phone] * TN DRAIN/INJECT LARGE JOINT/BURSA (06/29/2023 9:27 AM CDT) Narrative Toño Cabrera MD - 06/29/2023 9:27 AM CDT Toño Cabrera MD ? 06/29/2023 ??3:12 PM Orthopaedic Surgery Procedure Note Lukas Diaz [id number] Diagnosis: Left knee pain Procedure: Injection of [...] - CHEMISTRY O RDERABLES OTHER LAB * TN DRAIN/INJECT LARGE JOINT/BURSA (02/16/2023 12:00 PM CDT) Narrative Toño Cabrera MD - 02/16/2023 12:00 PM CDT Toño Cabrera MD ? 02/18/2023 ??3:47 PM Orthopaedic Surgery Procedure Note Lukas Diaz [id number] Diagnosis: Left knee pain Procedure: Injection of [...] Cabrera MD PROCEDURE/MINOR TRUDI GICAL ORDERABLES * TN DRAIN/INJECT LARGE JOINT/BURSA (08/11/2022 10:08 AM CDT) [...] OF EXAM: ??08/11/2022 9:22 AM, LOCATION ??[facility] INDICATION: M25.562: Pain in left knee [...] DATE/TIME OF EXAM: 29:22 AM, LOCATION [facility] INDICATION: M25.562: Pain in left knee [...] Arthur Nesbitt MD on 08/11/2022 10:11 AM Tñoo Cabrera MD DIAGNOSTIC IMAGING ORDERABLES * EGD [...] Procedure Code(s): ? --- Professional --- ? 67250, Esophagogastroduode noscopy, flexible, transoral; diagnostic, ? including collection of specimen(s) by brushing or washing, when ? 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 All rights reserved. 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 Amos Pabon, 06/18/2022 9:47:50 AM Note Initiated On: 06/18/2022 9:04 AM Number of Addenda: 0 ? [facility] ? [address], [place] [id number] [place] [address] [employer]ATION 06/18/2022 9:04 AM CDT Amos Pabon MD GI PROCEDURE ORDERAB LES [facility] * PATHOLOGY TISSUE (03/05/2022 9:47 AM CDT) Case Report Surgical Pathology Report ? Case: [id number] ? Authorizing Provider: ??Amos Pabon MD ?Collected: ? 03/05/2022 09:47 AM ? Ordering Location: ? [facility] ?Received: ?03/05/2022 11:35 AM ? Pathologist: ? Елена Stubbs MD ? Specimen: ?Gastric, . ??gastric bx R/O H pylori ? 03/06/2022 12:19 PM [facility] Final Diagnosis Stomach, biopsy (A): - Mild reactive changes and proton pump inhibitor effect - No active inflammation or H. pylori organisms (H&E examination) 03/06/2022 12:19 PM [facility] Microscopic Description and Comment Microscopic examination substantiates the final diagnosis. 03/06/2022 12:19 PM [facility] Clinical History The patient is a 36-year-old man here for 2nd degree variceal eradication. Operative procedure/findings: EGD - few non-bleeding superficial gastric ulcers in antrum, biopsied. 03/06/2022 12:19 PM [facility] Gross Description The requisition and specimen(s) are identified with the patient's name Lukas Diaz. Received in formalin, specimen A , are 4 pink-briscoe tissues, 0.1-0.7 cm in greatest dimension and 1.3 x 0.2 x 0.2 cm in aggregate, submitted in toto in cassette A1. DF 03/06/2022 12:19 PM [facility] Disclaimer The performance characteristics of all immunohistochemical and indirect immunofluorescence stains (if any) cited in this report were determined by the Histopathology Laboratory of [facility]. Some of these tests were [...] attending (teaching) pathologist. 03/06/2022 12:19 PM CDT [facility] PATH[facility]Y LAB Embedded Images 03/06/2022 12:19 PM CDT [facility] LAB Biopsy, NOS GASTRIC CONTENTS SPECIMEN / Unknown 03/05/2022 9:47 AM CDT 03/05/2022 11:35 AM CDT Comment:Pre-op diagnosis: Other cirrhosis of liver [K74.69] Amos Pabon MD LAB - PATHOLOGY/CYTO LOGY ORDERABLES [facility] PATH[facility] LAB [address] [place] [address], [facility] [phone] * EGD (03/05/2022 9:23 AM CDT) Report [...] Procedure Code(s): ? --- Professional --- ? 96073, Esophagogastroduode noscopy, flexible, transoral; with biopsy, ? single or multiple Diagnosis Code(s): ?--- Professional --- ?K21.0, Gastro-esophageal reflux disease with ?esophagitis ?K22.8, Other specified diseases of esophagus ?K25.9, Gastric ulcer, unspecified as acute or ?chronic, without hemorrhage or perforation ?I85.00, Esophageal varices without bleeding CPT copyright 2019 [employer]. All rights reserved. 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 Amos Pabon, 03/05/2022 9:59:19 AM Note Initiated On: 03/05/2022 9:23 AM Number of Addenda: 0 ? [facility] ? [address] [place] [address] [facility] 03/05/2022 9:23 AM CDT Amos Pabon MD GI PROCEDURE ORDERAB LES Performing Organization Address [facility]/ZIP Co de Phone Number [facility] * ALPHA FETOPROTEIN BLOOD TUMOR MARKER (02/16/2022 2:26 PM CDT) Only the most recent of2 resultswithin the time period is included. [facility] Alpha-Fetoprote in Tumor Marker 2.9 <=8.3 ng/mL 02/16/2022 4:09 PM CDT [facility] Comment: AFP values will vary depending on testing procedure used. Results are not comparable across different methods. AFP values obtained by [facility] using an Jenkins Alinity Immunoassay. Blood BLOOD SPECIMEN / Unknown Lab Venipuncture / Unknown 02/16/2022 2:26 PM CDT 02/16/2022 3:24 PM CDT Amos Pabon MD LAB - CHEMISTRY ORDE RABVIDA Performing Organization Address City/[facility]/ZIP Co de Phone Number [facility] [address] [place] [address], [facility] [phone] * (ABNORMAL) BASIC METABOLIC PANEL (CALCIUM TOTAL) (02/16/2022 2:26 PM CDT) Only the most recent of2 resultswithin the time period is included. [facility] BUN 9 7 - 26 mg/dL 02/16/2022 3:50 PM CDT [facility] Creatinine 0.76 0.71 - 1.16 mg/dL 02/16/2022 3:50 PM CDT [facility] Sodium 139 136 - 145 mmol/L 02/16/2022 3:50 PM CDT [facility] Potassium 3.7 3.5 - 4.5 mmol/L 02/16/2022 3:50 PM T [facility] Chloride 98 98 - 107 mmol/L 02/16/2022 3:50 PM T [facility] CO2 31(H) 22 - 29 mmol/L 02/16/2022 3:50 PM T [facility] Glucose 70 70 - 115 mg/dL 02/16/2022 3:50 PM T [facility] Calcium 10.4(H) 8.4 - 10.2 mg/dL 02/16/2022 3:50 PM T [facility] Anion Gap 14 8 - 18 02/16/2022 3:50 PM [facility] BUN/Creatinine Ratio 12 7 - 23 02/16/2022 3:50 PM [facility] Osmolality Calculated 285 270 - 300 mOsm/kg 02/16/2022 3:50 PM [facility] eGFR by CKD-EPI >90 >=90 mL/min/1.7 3 m2 02/16/2022 3:50 PM [facility] Blood BLOOD SPECIMEN / Unknown Lab Venipuncture / Unknown 02/16/2022 2:26 PM CDT 02/16/2022 3:20 PM CDT Amos Pabon MD LAB - CHEMISTRY ORDE [facility] Organization Address City/State/ZIP Co de Phone Number [facility] [address] [place] [address], [facility] [phone] * (ABNORMAL) HEPATIC FUNCTION PANEL (02/16/2022 2:26 PM CDT) Only the most recent of2 resultswithin the time period is included. Protein Total 8.9(H) 6.0 - 8.3 g/dL 022 3:50 PM T [facility] Albumin 4.0 3.4 - 5.0 g/dL 02/16/2022 3:50 PM T [facility] Bilirubin Total 0.5 0.2 - 1.2 mg/dL 01/24 3:50 PM CDT [facility] Bilirubin Conjugated 0.3 0.1 - 0.5 mg/dL 02/16/2022 3:50 PM T [facility] Bilirubin Unconjugated 0.2 Unconjugated Bilirubin is a calculated value: Reference ranges have not been established. mg/dL 02/16/2022 3:50 PM CDT [facility] Alkaline Phosphatase 130 40 - 150 U/L 02/16/2022 3:50 PM CDT [facility] ALT 20 5 - 55 U/L 02/16/2022 3:50 PM T [facility] AST 24 5 - 34 U/L 02/16/2022 3:50 PM T [facility] Albumin/Globulin Ratio 0.8(L) 1.1 - 2.3 02/16/2022 3:50 PM [facility] Blood BLOOD SPECIMEN / Unknown Lab Venipuncture / Unknown 02/16/2022 2:26 PM CDT 02/16/2022 3:20 PM CDT Amos Pabon MD LAB - CHEMISTRY KURT ZARAGOZA [facility] Organization Address City/State/ZIP Co de Phone Number [facility] [address] [place] [address], [facility] [phone] * (ABNORMAL) VITAMIN D 25-HYDROXY (12/19/2021 1:35 AM SECTION GANG) [facility] Vitamin D, 25 Hydroxy 7.0(L) 30.0 - 80.0 ng/mL 12/19/2021 2:30 AM SECTION GANG [facility] Comment: The recommendations for 25-Hydroxy Vitamin [...] Lab Venipuncture / Unknown 12/19/2021 1:35 AM SECTION GANG 12/19/2021 1:46 AM SECTION GANG Anastasia Chowdhury ARCHIVES SPECIALIST-TAVERN KEEPER LAB - CHEMISTR Y ORDERABLES Performing Organization Address [facility]/State/ZIP Co de Phone Number [address] [address], [facility] [phone] * CT HIP LEFT WO CONTRAST (12/18/2021 6:44 AM SECTION GANG) Anatomical Region Laterality Modality Lower Extremity Computed Tomogra phy 12/18/2021 6:48 AM SECTION GANG Impressions 12/18/2021 8:00 AM SECTION GANG Impression: Displaced left femoral neck fracture, age-indeterminate. Cannot exclude a small posterior-superior acetabular wall fracture. See comments above. Report drafted by Shaun Marie (resident) I, Dr. VALENTE MCDUFFIE MD have personally reviewed and interpreted this examination/study. This report was electronically signed by VALENTE MCDUFFIE MD ??on 12/18/2021 8:00 AM . Narrative 12/18/2021 8:00 AM SECTION GANG Procedure Information DATE: 12/18/2021 6:45 AM EXAMINATION: [...] URINE DRUG SCREEN IMMUNOASSAY (12/18/2021 4:57 AM SECTION GANG) [facility] Amphetamines Screen Urine Positive(A) Negative : < 1000 ng/mL 12/18/2021 5:21 AM SECTION GANG [facility] Comment: Positive urine amphetamine screening results should be confirmed by another generally accepted non-immunological method such as gas chromatography or mass spectrometry. ? Barbiturates Screen Urine Negative Negative : < 200 ng/mL 12/18/2021 5:21 AM [facility] Benzodiazepine Screen Urine Negative Negative : < 200 ng/mL 12/18/2021 5:21 AM [facility] Opiates Urine Positive(A) Negative : < 300 ng/mL 12/18/2021 5:21 AM [facility] Comment:Positive urine opiat e screening results should be confirmed by another generally accepted non-immunological method such as gas chromatography or mass spectrometry. Cocaine Metabolites Urine Negative Negative : < 300 ng/mL 12/18/2021 5:21 AM [facility] Phencyclidine Screen Urine Negative Negative : < 25 ng/ml 12/18/2021 5:21 AM [facility] Cannabinoids Screen Urine Positive(A) Negative : <50 ng/mL 12/18/2021 5:21 AM [facility] Comment:Positive urine canna binoids (THC) screening results should be confirmed by another generally accepted non-immunological method such as gas chromatography or mass spectrometry. Methadone Screen Urine Negative Negative : < 300 ng/mL 12/18/2021 5:21 AM [facility] Fentanyl Screen Urine Positive(A) Negative : <1.0 ng/mL 12/18/2021 5:21 AM [facility] Comment:Positive urine fenta nyl screening results should be confirmed by another generally accepted non-immunological method such as gas chromatography or mass spectrometry. Urine URINE / Unknown Collection / Unknown 12/18/2021 4:57 AM [facility] 12/18/2021 4:59 AM [facility] - 12/18/2021 5:21 AM [facility] The Urine Toxicology Screening Panel does not screen for Propoxyphene, Meprobamate, Carisoprodol, Trazodone, tzsm-hvh-dszhrlx medications and/or volatiles (Acetone, Isopropanol, Methanol or Ethylene Glycol). Ethanol, Salicylate, Acetaminophen, Tricyclic Antidepressants and several therapeutic drugs may be individually assayed in serum or plasma specimen. Toxicology testing by the [facility] is an aid to medical diagnosis and treatment of patients. No documented chain of custody was maintained. Results are intended to be used for clinical purposes only. ? Lima Thompson MD LAB - URINE CHEMISTR Y ORDERABLES Performing Organization Address [facility] de Phone Number [facility] [address] [place] [address], [facility] [phone] * BLOOD TYPE VERIFICATION (12/18/2021 4:44 AM SECTION GANG) [facility] ABO Rh B POS 12/18/2021 5:1 9 AM [facility] Blood Bank BLOOD SPECIMEN / Unknown Lab Venipuncture / Unknown 12/18/2021 4:44 AM SECTION GANG 12/18/2021 4:51 AM SECTION GANG Lima Thompson MD LAB - BLOOD BANK ORD ERABLES Performing Organization Address [facility] de Phone Number [facility] [address] [place] [address], [place] [phone] * SARS-COV-2 (COVID-19)+INFLU A+B PCR RAPID (12/18/2021 4:17 AM SECTION GANG) [facility] COVID-19 PCR Not detected Not detected 12/18/19 6:44 AM [facility] Influenza A Rapid MISAEL Not Detected Not Detected 12/18/2021 6:44 AM [facility] Influenza B MISAEL Rapid Not Detected Not Detected 12/18/2021 6:44 AM SECTION GANG [facility] Microbiology SPECIMEN FROM NASOPHARYNGEAL STRUCTURE / Unknown Collection / Unknown 12/18/2021 4:17 AM SECTION GANG 12/18/2021 6:15 AM SECTION GANG Narrative [facility] - 12/18/2021 6:44 AM SECTION GANG Influenza assay performed by [employer]. [...] acid amplification assay performance was validated by [facility]. This test has been authorized by the [...] Thompson MD LAB - MICROBIOLOGY O RDERABLES [facility] [address] [place] [address], [facility] [phone] * TYPE + SCREEN PANEL (12/18/2021 4:17 AM SECTION GANG) Antibody Screen NEG 5:14 AM SECTION GANG [facility] ABO Rh B POS 12/18/2021 5:14 AM SECTION GANG [facility] Blood Bank BLOOD SPECIMEN / Unknown Venipuncture / Unknown 12/18/2021 4:17 AM SECTION GANG 12/18/2021 4:29 AM SECTION GANG Lima Thompson MD LAB - BLOOD BANK ORD ERABLES [facility] [address] [place] [address], [facility] [phone] * XR PELVIS W LEFT HIP 2VW (12/17/2021 11:05 PM SECTION GANG) Anatomical Region Laterality Modality Pelvis Radiographic Юлия ging 12/17/2021 11:0 6 PM SECTION GANG Impressions 12/18/2021 10:05 AM SECTION GANG IMPRESSION: Superolaterally displaced fracture of the left femoral neck. Report dictated by Shama Landry M.D. (surgeon/president). I, Dr. ALO VAZQUEZ MD, FR have personally reviewed and interpreted this examination/study. This report was electronically signed by ALO VAZQUEZ MD, FRCR ??on 12/18/2021 10:05 AM . Narrative 12/18/2021 10:05 AM SECTION GANG EXAMINATION: XR PELVIS W LEFT HIP 2VW [...] neck. Report dictated by Shama Landry M.D. (surgeon/president). IDr. ALO MD, [facility] have personally reviewedand interpreted this examination/study. This report was electronically signed by ALO VAZQUEZ MD, [facility] on 12/18/2021 10:05 AM . Lima Thompson MD DIAGNOSTIC IMAGING O RDERABLES * TIFFANY BLOOD SCREEN W/REFLEX TITER (10/01/2021 11:38 AM SECTION GANG) TIFFANY IgG None Detected None Detected 10/04/2021 12:34 AM SECTION GANG [facility] ([facility]) Comment: If suspicion of connective tissue disease is strong and TIFFANY EIA is negative, consider testing for TIFFANY by IFA ([id number]). INTERPRETIVE INFORMATION: Anti-Nuclear Antibodies (TIFFANY), IgG by SAVANNAH Antinuclear Antibodies (TIFFANY), IgG by SAVANNAH: TIFFANY specimens are screened using enzyme-linked immunosorbent assay (SAVANNAH) methodology. All SAVANNAH results reported as Detected are further tested by indirect fluorescent assay (IFA) using HEp-2 substrate with an IgG-specific conjugate. The TIFFANY SAVANNAH screen is designed to detect antibodies against dsDNA, histones, SS-A (Ro), SS-B (La), Clayton, Clayton/PRINT LINE FEEDER, Scl-70, Nuris-1, centromeric proteins, other antigens extracted from the HEp-2 cell nucleus. TIFFANY SAVANNAH assays have been reported to have lower sensitivities than TIFFANY IFA for systemic autoimmune rheumatic diseases (SARD). Negative results do not necessarily rule out SARD. Performed By: [employer] [address] [place] [address] Cementer Machine Joiner: Ivanna Ballard MD Blood BLOOD SPECIMEN / Unknown Lab Venipuncture / Unknown 10/01/2021 11:38 AM SECTION GANG 10/01/2021 11:45 AM SECTION GANG Amos Pabon MD LAB - CHEMISTRY KURT ZARAGOZA [facility] Organization Address City/State/ZIP Co de Phone Number [facility]) [address] [place] [address], [facility] * KVOXJ-2-RHRIKTEPSNN BLOOD (10/01/2021 11:38 AM SECTION GANG) Drwcw-8-Kbxrwh ypsin 159 90 - 200 mg/dL 10/01/2021 12:55 PM [facility] Blood BLOOD SPECIMEN / Unknown Lab Venipuncture / Unknown 10/01/2021 11:38 AM SECTION GANG 10/01/2021 11:46 AM SECTION GANG Amos Pabon MD LAB - CHEMISTRY KURT ZARAGOZA Performing Organization Address City/[facility]/ZIP Co de Phone Number [address] [address], [facility] [phone] * (ABNORMAL) IRON BLOOD (10/01/2021 11:38 AM SECTION GANG) Pathologist [facility] Iron 17(L) 50 - 175 ug/dL 10/01/2021 12:55 PM [facility] Blood BLOOD SPECIMEN / Unknown Lab Venipuncture / Unknown 10/01/2021 11:38 AM SECTION GANG 10/01/2021 11:46 AM SECTION GANG Amos Pabon MD LAB - CHEMISTRY KURT ZARAGOZA Performing Organization Address [facility] Co de Phone Number [address] [address], [facility] [phone] * (ABNORMAL) HEPATITIS B SURFACE ANTIBODY (10/01/2021 11:38 AM SECTION GANG) Pathologist [facility] Hepatitis B Virus Surface Antibody Reactive( A) Non-react young 10/01/2021 1:14 PM [facility] Comment: > 12 mIU/mL Hepatitis B surface Antibody (HBsAb). Reactive for HBsAb - individual is considered immune to Hepatitis B Virus infection. Hepatitis B Surface Antibody Quantitative 50.9(H) <8.0 mIU/mL 10/01/2021 1:14 PM [facility] Comment: Hepatitis B Surface Antibody Numeric Result Interpretation: ? Nonreactive: ?<8.0 mIU/mL ? Indeterminate: ??8.0 - 12.0 mIU/mL ? Reactive: ?>12.0 mIU/mL ? Blood BLOOD SPECIMEN / Unknown Lab Venipuncture / Unknown 10/01/2021 11:38 AM SECTION GANG 10/01/2021 11:46 AM SECTION GANG Amos Pabon MD LAB - CHEMISTRY KURT ZARAGOZA Performing Organization Address City/[facility]/ZIP Co de Phone Number [address] [address], [place] [phone] * HEPATITIS B CORE ANTIBODY (10/01/2021 11:38 AM SECTION GANG) HBc Antibody Total Non-reacti ve Non-reacti ve 10/01/2021 1:14 PM SECTION GANG [facility] Blood BLOOD SPECIMEN / Unknown Lab Venipuncture / Unknown 10/01/2021 11:38 AM SECTION GANG 10/01/2021 11:46 AM SECTION GANG Amos Pabon MD LAB - CHEMISTRY KURT ZARAGOZA Performing Organization Address [facility] Co de Phone Number [address] [address], [place] [phone] * HEPATITIS B SURFACE ANTIGEN W RFLX CONFIRMATION (10/01/2021 11:38 AM SECTION GANG) Hepatitis B Virus Surface Antigen Non-reacti ve Non-reacti ve 10/01/2021 1:14 PM SECTION GANG [facility] Blood BLOOD SPECIMEN / Unknown Lab Venipuncture / Unknown 10/01/2021 11:38 AM SECTION GANG 10/01/2021 11:46 AM SECTION GANG Amos Pabon MD LAB - CHEMISTRY KURT ZARAGOZA Performing Organization Address City/[facility] Co de Phone Number [address] [address], [place] [phone] * (ABNORMAL) IGG BLOOD (10/01/2021 11:38 AM SECTION GANG) Pathologist [facility] IgG 2,513(H) 767-1,590 mg/dL 10/01/2021 12:55 PM SECTION GANG [facility] Blood BLOOD SPECIMEN / Unknown Lab Venipuncture / Unknown 10/01/2021 11:38 AM SECTION GANG 10/01/2021 11:46 AM SECTION GANG Amos Pabon MD LAB - CHEMISTRY KURT ZARAGOZA Performing Organization Address City/[facility]/ZIP Co de Phone Number [address] [address], [facility] [phone] * HEPATITIS C ANTIBODY (10/01/2021 11:38 AM SECTION GANG) [facility] Hepatitis C Antibody Non-react young Non-reac tive 10/01/2021 1:14 PM SECTION GANG [facility] Comment:Hepatitis C Antibody screen indicates [...] Lab Venipuncture / Unknown 10/01/2021 11:38 AM SECTION GANG 10/01/2021 11:46 AM SECTION GANG Amos Pabon MD LAB - CHEMISTRY KURT ZARAGOZA Performing Organization Address [facility] Co de Phone Number [address] [address], [facility] [phone] * (ABNORMAL) HEPATITIS A ANTIBODY (10/01/2021 11:38 AM SECTION GANG) [facility] Hepatitis A Virus Antibody Total Positive( A) Negative 10/03/2021 5:38 PM SECTION GANG [facility] ([facility]) Comment: The positive anti-HAV is consistent with recent or remote Hepatitis A infection or antibody response to HAV vaccination. False positive anti-HAV can occur. Performed by [employer] [address] [place] [id number] [email or web address], Ivanna Ballard MD, Lab. Director Blood BLOOD SPECIMEN / Unknown Lab Venipuncture / Unknown 10/01/2021 11:38 AM SECTION GANG 10/01/2021 11:45 AM SECTION GANG Amos Pabon MD LAB - CHEMISTRY KURT ZARAGOZA [facility]) [address] * (ABNORMAL) FERRITIN (10/01/2021 11:38 AM SECTION GANG) Ferritin 19(L) 22 - 275 ng/mL 10/01/2021 1:14 PM SECTION GANG [facility] Blood BLOOD SPECIMEN / Unknown Lab Venipuncture / Unknown 10/01/2021 11:38 AM SECTION GANG 10/01/2021 11:46 AM SECTION GANG Amos Pabon MD LAB - CHEMISTRY KURT ZARAGOZA [facility] [address] [place] [address], [facility] [phone] Care Teams Inventory Transcriber Relationship Specialty Start Date End Date Teodoro Lopez PCP - General 05/17/24 Eric Oconnell MD Hospitalist 10/10/21
--- OUTSIDE RECORDS SUMMARY | 2024-11-22 16:41 | XMS_ITS | Encounter Summary ---
Author Organization [facility] Health Address [address] [place] [address] Care Team Providers Care Glass Novelty Maker Name Role Phone Eric Oconnell MD Unavailable [phone] Gregorio James MD Primary Care Provider [phone] Teodoro Lopez Primary Care Provider Unavailabl e Encounter Details Date Type Department Care Team (Late st Contact Info) Description 05/01/2024 Telephone [facility] - [address], [place] [address] Nahed Quinonez, ALFREDO Social History [...] need for new PA for Xifaxan. Reports [facility] denies pt need for Xifiaxan while taking lactulose. RN place request for pt assistance renewal for pt. New med list including both medications sent to facility. [facility] notified for pt assistance renewal. documented in this encounter Plan of Treatment Upcoming Encounters Date Type Department Care Team (Late st Contact Info) Description 11/29/2024 8:30 AM READINESS PARAPROFESSIONAL Office Visit [facility] - Orthopedic Surgery [address] [address] [place] [address] Toño Cabrera MD [address] [facility] [address] [place] [address] 01/08/2025 8:00 AM CDT Appointment [facility] [address] [place] [phone] 01/08/2025 9:00 AM CDT Office Visit [facility] - GI [address] [place] [address], [place] [phone] Amos Pabon MD [address] [place] [address] [place] [address] documented as of this encounter Goals Goal [...] on filedocumented in this encounter Care Teams Glass Novelty Maker Relationship Specialty Start Date End Date Gregorio James MD [address] [place] [phone] PCP - General 08/11/22 05/16/24 Teodoro Lopez PCP - General 05/17/24 Eric Oconnell MD Hospitalist 10/10/21 documented as of this encounter
--- OUTSIDE RECORDS SUMMARY | 2024-11-22 16:41 | XMS_ITS | Encounter Summary ---
Author Organization [facility] Address [address] [facility] [place] [address] Care Team Providers Care Ios Architect Name Role Phone Major Kraft MD Primary Care Provider [phone] Eric Oconnell MD Unavailable + [phone] Raya Carty PA-C Primary Care Provider Major Kraft MD Primary Care Provider [phone] Gregorio James MD Primary Care Provider [phone] Teodoro Lopez Primary Care Provider Unavailabl e Reason for Visit * Reason Onset Date Comments Pre-op Instructions 02/26/2022 Encounter Details Date Type Department Care Team (Late st Contact Info) Description 02/26/2022 Patient Outreach [facility] [address] [place] [phone] Ginger Amador RN Pre-op Instructions Social History [...] st Contact Info) Description 11/29/2024 8:30 AM 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.] on filedocumented in this encounter Care Teams Ios Architect Relationship Specialty Start Date End Date Major Kraft MD PCP - General 07/01/21 06/08/22 Raya Carty PA-C [address] [place] [phone] PCP - General 06/09/22 07/05/22 Major Kraft MD PCP - General 07/06/22 08/10/22 Gregorio James MD [address] [place] [phone] PCP - General 08/11/22 05/16/24 Teodoro Lopez PCP - General 05/17/24 Eric Oconnell MD Hospitalist 10/10/21 documented as of this encounter
--- OUTSIDE RECORDS SUMMARY | 2024-11-22 16:41 | XMS_ITS | Referral Summary ---
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 Gender Identity Not on file Sexual Orientation Not on file Occupation Industry Job Start Date Job End Date disabled Not on file Not on file Not on file Last Filed Vital Signs Vital Sign Reading Time Taken Comments Blood Pressure 130/65 10/26/2023 4:38 AM MARBLE SETTER HELPER Pulse 68 10/26/2023 4:38 AM MARBLE SETTER HELPER Temperature 36.5 ??C (97.7 ??F) 10/26/2023 4:38 AM CS T Respiratory Rate 18 10/26/2023 4:38 AM MARBLE SETTER HELPER Oxygen Saturation 96% 10/26/2023 4:38 AM MARBLE SETTER HELPER Inhaled Oxygen Concentration - - Weight 90.6 kg (199 lb 11.8 oz) 10/05/2023 7:48 AM MARBLE SETTER HELPER Height 170.2 cm (5' 7.01 ) 09/30/2023 7:38 AM CS T Body Mass Index 31.28 09/30/2023 7:38 AM MARBLE SETTER HELPER Plan of Treatment Not on file Insurance [facility] [address] Advance Directives For more information, please contact: [phone] * Full Code (Latest Code Status on File) Date Activated Date Inactivated Comments 09/30/2023 7:23 AM 10/05/2023 5:12 PM Care Teams Territory Account Representative Relationship Specialty Start Date End Date Major Kraft MD PCP - General Internal Medicine 11/07/21 Amos Pabon MD [address] [address] Referring Physician Internal Medicine 10/05/23
--- OUTSIDE RECORDS SUMMARY | 2024-11-22 16:41 | XMS_ITS | Clinical Summary ---
Author Organization [facility] Address [address] [place] [address] Care Team Providers Care Aviculturist Name Role Phone Major Kraft MD Primary Care Provider Amos Pabon MD Unavailable [phone] Allergies Active Allergy Reactions Criticality Noted Date [...] uit: Not Asked; Counseling Given: Not Answered [facility] Utilities Answer Date Recorded In the past 12 months has th e [employer], gas, oil, or water [employer] threatened to shut off services in your [...] week 09/29/2023 How often do you attend [facility] or pentecostal services? Never 09/29/2023 Do you belong to any clubs o r organizations such as shinto groups, unions, fraternal or athletic groups, or [...] place to sleep or slept in a nursing home (including now)? No 09/29/2023 Personal Safety Answer Date Recorded Have you ever been in or are you currently in a harmful physical or emotional relationship or is someone making you feel afraid or unsafe? Denies 09/28/2023 Sex and Gender Information Value Date Recorded Sex Assigned at Not on file Legal Sex Male 1:24 PM FURNACE AND WASH EQUIPMENT OPERATOR Gender Identity Not on file Sexual Orientation Not on file Occupation Industry Job Start Date Job End Date disabled Not on file Not on file Not on file Obstetrics History Last Filed Vital Signs Vital Sign Reading Time Taken Comments Blood Pressure 130/65 10/26/2023 4:38 AM FURNACE AND WASH EQUIPMENT OPERATOR Pulse 68 10/26/2023 4:38 AM FURNACE AND WASH EQUIPMENT OPERATOR Temperature 36.5 ??C (97.7 ??F) 10/26/2023 4:38 AM CS T Respiratory Rate 18 10/26/2023 4:38 AM FURNACE AND WASH EQUIPMENT OPERATOR Oxygen Saturation 96% 10/26/2023 4:38 AM FURNACE AND WASH EQUIPMENT OPERATOR Inhaled Oxygen Concentration - - Weight 90.6 kg (199 lb 11.8 oz) 10/05/2023 7:48 AM FURNACE AND WASH EQUIPMENT OPERATOR Height 170.2 cm (5' 7.01 ) 09/30/2023 7:38 AM CS T Body Mass Index 31.28 09/30/2023 7:38 AM FURNACE AND WASH EQUIPMENT OPERATOR Plan of Treatment Health Maintenance Due Date [...] patient's age to complete this topic Insurance [facility] MEDICARE Advance Directives For more information, please contact: [phone] * Full Code (Latest Code Status on File) Date Activated Date Inactivated Comments 09/30/2023 7:23 AM 10/05/2023 5:12 PM Care Teams Aviculturist Relationship Specialty Start Date End Date Major Kraft MD PCP - General Internal Medicine 11/07/21 Amos Pabon MD [address] [address] Referring Physician Internal Medicine 10/05/23
[2024-11-22 16:53] LABS: Add Urine Microscopic? NO; Appearance Urine Clear (Clear); Bilirubin Urine Negative (Negative); Blood Urine Negative (Negative); Color Urine Yellow (Yellow); Glucose Urine UA Negative (Negative); Ketones Urine Negative (Negative); Leukocyte Esterase Ur Negative LEU/UL (Negative); Nitrate Urine Negative (Negative); Protein Urine Negative (Negative); Specific Grav Ur 1.015 (1.001-1.035); Urobilinogen Urine 0.2 mg/dL (<2.0)
[2024-11-22] MEDS: BUMETANIDE INJ 1 MG/4 ML VIAL IV PUSH (20:41)
== END 2024-11-23 01:27 ==
PROVIDERS: Emergency Provider Emergency Medicine; PCP Hospitalist
DX: R10.13 Epigastric pain (principal); R60.0 Localized edema; K70.30 Alcoholic cirrhosis of liver without ascites; K22.70 Barrett's esophagus without dysplasia; K70.10 Alcoholic hepatitis without ascites; F41.8 Other specified anxiety disorders; F10.10 Alcohol abuse, uncomplicated; F17.210 Nicotine dependence, cigarettes, uncomplicated; Z86.718 Personal history of other venous thrombosis and embolism; Z86.711 Personal history of pulmonary embolism; Z86.0100 Personal history of colon polyps, unspecified; Z79.899 Other long term (current) drug therapy; Z79.01 Long term (current) use of anticoagulants
CPT/HCPCS: 36415; 71045; 74177; 80053; 81003; 82948; 83690; 83735; 84100; 85025; 85610; 85730; 86850; 86900; 86901; 93005; 96374; 96375; 99284; J1171; J1939; Q9967

== ENCOUNTER 2024-12-03 10:49 | Emergency (ER) | payer MEDICARE, MEDICAID, SELFPAY ==
--- NOTE | ~2024-12-03 | CT_ITS ---
EXAMINATION: CT abdomen pelvis w con DATE: 12/03/2024 12:18 INDICATION: Epigastric pain left upper quadrant abdominal pain. TECHNIQUE: Computed tomography (CT) of the abdomen and pelvis was performed with 100 mL Omnipaque-350 intravenous contrast. Automated exposure control and iterative reconstruction technique were employe d. The dose-length product was 1094.44 mGy-cm. COMPARISON: None FINDINGS: Mild dependent atelectasis in bilateral lower lobes. Heart size normal. No pericardial or pleural eff usion. Small sliding-type hiatal hernia. There are paraesophageal varices. Bilateral gynecomastia. Di ffuse liver surface nodularity consistent with cirrhosis. Spleen, pancreas, bilateral adrenal glands and kidneys are normal. Bowels including the appendix are normal. Bladder is normal. No free intraper itoneal gas or fluid. No pathologically enlarged abdominal or pelvic lymphadenopathy. Small fat-conta ining umbilical and bilateral inguinal hernias. Mild lumbar levocurvature with mild spondylosis. [employer] Tech honey nonunited fracture of the left femoral neck with ostial lysis with loss of the entire femoral nec k and basilar portion of the femoral head with sclerotic margins. IMPRESSION: 1. Cirrhosis with paraesophageal varices consistent with secondary portal venous hypertension. 2. Small sliding-type hiatal hernia. 3. Small fat-containing umbilical and bilateral inguinal hernias. 4. Chronic nonunited left femoral neck fracture. Reviewed, dictated and finalized at location A. T SPECIALIST IMPRESSION: 1. Cirrhosis with paraesophageal varices consistent with secondary portal venou s hypertension. 2. Small sliding-type hiatal hernia. 3. Small fat-containing umbilical and bilateral inguinal hernias. 4. Chronic nonunited left femoral neck fracture.
--- OUTSIDE RECORDS SUMMARY | 2024-12-03 10:51 | XMS_ITS | Referral Summary ---
Author Organization [facility] Address [address] [place] [address] Care Team Providers Care Craft Artist Name Role Phone Eric Oconnell MD Unavailable [phone] Teodoro Lopez Primary Care Provider Unavailabl e Source Comments [facility],non-owned Affiliates and Associated Physician Practices is amultiple site organization consisting of ambulatory clinics and hospital sitesin [place], [place], [place] and [place]. This disclosure is being madepursuant to the Care Everywhere program and may not contain all information available regarding this patient. Last updated 18.[facility] Allergies Active Allergy Reactions Criticality Noted Date [...] affected area as needed Active HYDROcodone-acetamin ophen ([place]) 5-325 MG tablet Take 1 (one) tablet [...] 77 03/29/2024 9:30 PM CDT Temperature 36.9 C (98.4 F) 03/29/2024 9:30 PM CDT Respiratory Rate 17 03/29/2024 9:30 PM CDT [...] Care Team (Late st Contact Info) Description 01/08/2025 8:00 AM CDT Appointment [facility] [address] [place] [address] 01/08/2025 9:00 AM CDT Office Visit [facility] - GI [address] [facility], [place] [phone] Amos Pabon MD [address] [place] [address] [place] [address] Goals Goal Patient Goal Type Associated Problems [...] HEPATITIS C ANTIBODY Routine 10/01/2021 11:38 AM TECHNICAL INTERN Cirrhosis of liver with ascites, unspecified hepatic cirrhosis type (HCC) from Last 3 Months or Most Recently Relevant to Health Maintenance Results * (ABNORMAL) COMPREHENSIVE METABOLIC PANEL (03/29/2024 4:30 AM CDT) BUN 10 7 - 26 mg/dL 03/29/2024 5:09 AM [facility] Creatinine 0.84 0.71 - 1.16 mg/dL 03/29/2024 5:09 AM [facility] Sodium 135(L) 136 - 145 mmol/L 03/29/2024 5:09 AM [facility] Potassium 3.8 3.5 - 4.5 mmol/L 03/29/2024 5:09 AM [facility] Chloride 105 98 - 107 mmol/L 03/29/2024 5:09 AM [facility] CO2 22 22 - 29 mmol/L 03/29/2024 5:09 AM [facility] Glucose 87 70 - 115 mg/dL 03/29/2024 5:09 AM [facility] Calcium 9.6 8.4 - 10.2 mg/dL 03/29/2024 5:09 AM [facility] Protein Total 7.6 6.0 - 8.3 g/dL 03/29/2024 5:09 AM [facility] Albumin 3.8 3.4 - 5.0 g/dL 03/29/2024 5:09 AM [facility] Bilirubin Total 0.9 0.2 - 1.2 [...] Isaak Ibrahim MD LAB - CHEMISTRY KURT [facility] Organization Address City/State/ZIP Co de Phone Number [facility] [address] [place] [phone], [facility] [phone] * HEPATITIS C ANTIBODY (10/01/2021 11:38 AM TECHNICAL INTERN) Hepatitis C Antibody Non-react young Non-reac tive 10/01/2021 1:14 PM TECHNICAL INTERN [facility] Comment:Hepatitis C Antibody screen indicates [...] Lab Venipuncture / Unknown 10/01/2021 11:38 AM TECHNICAL INTERN 10/01/2021 11:46 AM TECHNICAL INTERN Amos Pabon MD LAB - CHEMISTRY KURT [facility] Organization Address City/State/ZIP Co de Phone Number [facility] [address] [place] [address], [facility] [phone] from Last 3 Months or Most Recently Relevant to Health Maintenance Advance Directives * Full Code (Latest Code Status on File) Date Activated Date Inactivated Comments 03/29/2024 12:13 AM 03/29/2024 11:54 PM Care Teams Craft Artist Relationship Specialty Start Date End Date Teodoro Lopez PCP - General 05/17/24 Eric Oconnell MD Hospitalist 10/10/21
--- OUTSIDE RECORDS SUMMARY | 2024-12-03 10:51 | XMS_ITS | Encounter Summary ---
Author Organization [facility] Address [address] [facility] [place] [address] Care Team Providers Care Mailroom Messenger Name Role Phone Major Kraft MD Primary Care Provider [phone] Eric Oconnell MD Unavailable [phone] Raya Carty PA-C Primary Care Provider Major Kraft MD Primary Care Provider [phone] Gregorio James MD Primary Care Provider [phone] Teodoro Lopez Primary Care Provider Unavailabl e Reason for Visit * Reason Onset Date Comments Pre-op Instructions 02/26/2022 Encounter Details Date Type Department Care Team (Late st Contact Info) Description 02/26/2022 Patient Outreach [facility] [address] [place] [phone] Ginger Amador RN Pre-op Instructions Social History [...] Info) Description 01/08/2025 8:00 AM CDT Appointment [facility] [address] [place] [address] 01/08/2025 9:00 AM CDT Office Visit [facility] - GI [address] [facility], [place] [address] Amos Pabon MD [address] [place] [address] [place] [address] documented as of this encounter Goals Goal [...] on filedocumented in this encounter Care Teams Mailroom Messenger Relationship Specialty Start Date End Date Major Kraft MD PCP - General 07/01/21 06/08/22 Raya Carty PA-C [address] [place] [phone] PCP - General 06/09/22 07/05/22 Major Kraft MD PCP - General 07/06/22 08/10/22 Gregorio James MD [address] [place] [phone] PCP - General 08/11/22 05/16/24 Teodoro Lopez PCP - General 05/17/24 Eric Oconnell MD Hospitalist 10/10/21 documented as of this encounter
--- OUTSIDE RECORDS SUMMARY | 2024-12-03 10:51 | XMS_ITS | Clinical Summary ---
Author Organization [facility] Address [address] [place] [phone] Care Team Providers Care Billet Cutter Name Role Phone Major Kraft MD Primary Care Provider [phone] Amos Pabon MD Unavailable [phone] Allergies Active Allergy Reactions Criticality Noted Date [...] uit: Not Asked; Counseling Given: Not Answered [facility] Utilities Answer Date Recorded In the past 12 months has th e [email or web address], gas, oil, or water [employer] threatened to shut off services in your [...] week 09/29/2023 [facility] or [facility] services? Never 09/29/2023 Do you belong to any clubs o r organizations such as gnosticism groups, unions, fraternal or athletic groups, or [...] place to sleep or slept in a group home (including now)? No 09/29/2023 Personal Safety Answer Date Recorded Have you ever been in or are you currently in a harmful physical or emotional relationship or is someone making you feel afraid or unsafe? Denies 09/28/2023 Sex and Gender Information Value Date Recorded Sex Assigned at Not on file Legal Sex Male 1:24 PM PEARL GLUE DRIER Gender Identity Not on file Sexual Orientation Not on file Occupation Industry Job Start Date Job End Date disabled Not on file Not on file Not on file Obstetrics History Last Filed Vital Signs Vital Sign Reading Time Taken Comments Blood Pressure 130/65 10/26/2023 4:38 AM PEARL GLUE DRIER Pulse 68 10/26/2023 4:38 AM PEARL GLUE DRIER Temperature 36.5 C (97.7 F) 10/26/2023 4:38 AM PEARL GLUE DRIER Respiratory Rate 18 10/26/2023 4:38 AM PEARL GLUE DRIER Oxygen Saturation 96% 10/26/2023 4:38 AM PEARL GLUE DRIER Inhaled Oxygen Concentration - - Weight 90.6 kg (199 lb 11.8 oz) 10/05/2023 7:48 AM PEARL GLUE DRIER Height 170.2 cm (5' 7.01 ) 09/30/2023 7:38 AM CS T Body Mass Index 31.28 09/30/2023 7:38 AM PEARL GLUE DRIER Plan of Treatment Health Maintenance Due Date [...] patient's age to complete this topic Insurance [facility] MEDICARE Advance Directives For more information, please contact: [phone] * Full Code (Latest Code Status on File) Date Activated Date Inactivated Comments 09/30/2023 7:23 AM 10/05/2023 5:12 PM Care Teams Billet Cutter Relationship Specialty Start Date End Date Major Kraft MD PCP - General Internal Medicine 11/07/21 Amos Pabon MD [address] [address] Referring Physician Internal Medicine 10/05/23
--- OUTSIDE RECORDS SUMMARY | 2024-12-03 10:51 | XMS_ITS | Referral Summary ---
Author Organization [facility] Address [address] [place] [phone] Care Team Providers Care Vacuum Cleaner Repairer Name Role Phone Major Kraft MD Primary Care Provider [phone] Amos Pabon MD Unavailable [phone] Allergies Active Allergy Reactions Criticality Noted Date [...] uit: Not Asked; Counseling Given: Not Answered [facility] Utilities Answer Date Recorded In [...] often do you attend chur ch or yazidi services? Never 09/29/2023 Do you belong to any clubs o r organizations such as catholic groups, unions, fraternal or athletic groups, or [...] place to sleep or slept in a jail (including now)? No 09/29/2023 Personal Safety Answer Date Recorded Have you ever been in or are you currently in a harmful physical or emotional relationship or is someone making you feel afraid or unsafe? Denies 09/28/2023 Sex and Gender Information Value Date Recorded Sex Assigned at Not on file Legal Sex Male 1:24 PM BELT BRANDER Gender Identity Not on file Sexual Orientation Not on file Occupation Industry Job Start Date Job End Date disabled Not on file Not on file Not on file Last Filed Vital Signs Vital Sign Reading Time Taken Comments Blood Pressure 130/65 10/26/2023 4:38 AM BELT BRANDER Pulse 68 10/26/2023 4:38 AM BELT BRANDER Temperature 36.5 C (97.7 F) 10/26/2023 4:38 AM BELT BRANDER Respiratory Rate 18 10/26/2023 4:38 AM BELT BRANDER Oxygen Saturation 96% 10/26/2023 4:38 AM BELT BRANDER Inhaled Oxygen Concentration - - Weight 90.6 kg (199 lb 11.8 oz) 10/05/2023 7:48 AM BELT BRANDER Height 170.2 cm (5' 7.01 ) 09/30/2023 7:38 AM CS T Body Mass Index 31.28 09/30/2023 7:38 AM BELT BRANDER Plan of Treatment Not on file [place] [address] Advance Directives For more information, please contact: [phone] * Full Code (Latest Code Status on File) Date Activated Date Inactivated Comments 09/30/2023 7:23 AM 10/05/2023 5:12 PM Care Teams Vacuum Cleaner Repairer Relationship Specialty Start Date End Date Major Kraft MD PCP - General Internal Medicine 11/07/21 Amos Pabon MD [address] [address] Referring Physician Internal Medicine 10/05/23
--- OUTSIDE RECORDS SUMMARY | 2024-12-03 10:51 | XMS_ITS | Patient Health Summary ---
Author Organization [facility] Address [address] [place] [address] Care Team Providers Care Pearl Hand Name Role Phone Eric Oconnell MD Unavailable [phone] Teodoro Lopez Primary Care Provider Unavailabl e Note from [facility],non-owned Affiliates and Associated Physician Practices is amultiple site organization consisting of ambulatory clinics and hospital sitesin [place], [place], [place] and [place]. This disclosure is being madepursuant to the Care Everywhere program and may not contain all information available regarding this patient. Last updated 18.[facility] Allergies * Mushroom Extract Complex(Other) * [...] to affected area as needed * HYDROcodone-acetaminophen (Thomas) 5-325 MG tablet Take 1 (one) tablet [...] ascites, unspecified hepatic cirrhosis type (HCC) * [id number] BLOOD(Performed 10/01/2021) Performed for Cirrhosis of liver [...] 05/17/2024 3:13 PM CDT Toño Cabrera MD 05/17/2024 3:13 PM Orthopaedic Surgery Procedure Note Lukas Diaz [id number] Diagnosis: Left knee pain Procedure: Injection of [...] 05/17/2024 3:12 PM CDT Toño Cabrera MD 05/17/2024 3:13 PM Orthopaedic Surgery Procedure Note Lukas Diaz [id number] Diagnosis: Right knee pain Procedure: Injection of [...] CDT Narrative 05/17/2024 1:19 PM CDT PROCEDURE: XR LUMBAR SPINE 3VW, DATE/TIME OF EXAM: 05/17/2024 12:11 PM, LOCATION [facility] INDICATION: 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 Depression of MANAGER TELEMETRY: >100 mg/dl Potentially Critical: >250 mg/dl Potentially [...] - CHEMISTR Y ORDERABLES Performing Organization Address City/[facility]/ZIP Co de Phone Number [facility] [address] [place] [address], [facility] [phone] * CULTURE BLOOD (03/29/2024 4:31 AM CDT) Only the most recent of2 resultswithin the time period is included. Pathologist [facility] [place] Culture No growth day 5 DEVAUGHN 04/03/2024 8:01 AM CDT [facility] Blood PERIPHERAL BLOOD / Unknown Lab Venipuncture / Unknown 03/29/2024 4:31 AM CDT 03/29/2024 4:37 AM CDT Isaak Ibrahim MD LAB - MICROBIOLOGY O RDERABLES Performing Organization Address City/[facility]/ZIP Co de Phone Number [facility] [address] [place] [address], [facility] [phone] * CBC W/O DIFFERENTIAL (03/29/2024 4:30 AM CDT) Only the most recent of4 resultswithin the time period is included. Pathologist [facility] [place] WBC 8.7 4.0 - 10.7 x10E9/L 03/29/2024 5:08 AM [facility] RBC Count 4.81 4.30 - 5.80 x10E12/L 03/29/2024 5:08 AM [facility] Hemoglobin 15.3 13.3 - 17.5 g/dL 03/29/2024 5:08 AM [facility] Hematocrit 43.4 38.7 - 51.1 % 03/29/2024 5:08 AM [facility] MCV 90.2 80.0 - 98.0 fL 03/29/2024 5:08 AM [facility] MCH 31.8 26.7 - 33.6 pg 03/29/2024 5:08 AM [facility] MCHC 35.3 31.7 - 36.3 g/dL 03/29/2024 5:08 AM [facility] RDW-CV 12.1 11.3 - 14.8 % 03/29/2024 5:08 AM [facility] Platelet Count 178 150 - 420 x10E9/L 03/29/2024 5:08 AM [facility] MPV 10.5 7.8 - 11.4 fL 03/29/2024 5:08 AM [facility] Blood BLOOD SPECIMEN / Unknown Lab Venipuncture / Unknown 03/29/2024 4:30 AM CDT 03/29/2024 4:42 AM CDT Isaak Ibrahim MD LAB - HEMATOLOGY ORD ERABLES [facility] [address] [place] [phone], [facility] [phone] * (ABNORMAL) COMPREHENSIVE METABOLIC PANEL (03/29/2024 4:30 AM CDT) Only the most recent of4 resultswithin the time period is included. BUN 10 7 - 26 mg/dL 03/29/2024 5:09 AM [facility] Creatinine 0.84 0.71 - 1.16 mg/dL 03/29/2024 5:09 AM [facility] Sodium 135(L) 136 - 145 mmol/L 03/29/2024 5:09 AM [facility] Potassium 3.8 3.5 - 4.5 mmol/L 03/29/2024 5:09 AM [facility] Chloride 105 98 - 107 mmol/L 03/29/2024 5:09 AM [facility] CO2 22 22 - 29 mmol/L 03/29/2024 5:09 AM [facility] Glucose 87 70 - 115 mg/dL 03/29/2024 5:09 AM [facility] Calcium 9.6 8.4 - 10.2 mg/dL 03/29/2024 5:09 AM [facility] Protein Total 7.6 6.0 - 8.3 g/dL 03/29/2024 5:09 AM [facility] Albumin 3.8 3.4 - 5.0 g/dL 03/29/2024 5:09 AM [facility] Bilirubin Total 0.9 0.2 - 1.2 mg/dL 03/29/2024 5:09 AM [facility] Alkaline Phosphatase 81 40 - 150 U/L 03/29/2024 5:09 AM [facility] ALT 20 5 - 55 U/L 03/29/2024 5:09 AM [facility] AST 17 5 - 34 U/L 03/29/2024 5:09 AM [facility] Anion Gap 8 6 - 16 03/29/2024 5:09 AM [facility] BUN/Creatinine Ratio 12 7 - 23 03/29/2024 5:09 AM [facility] Osmolality Calculated 278 275 - 295 mOsm/kg 03/29/2024 5:09 AM [facility] Albumin/Globulin Ratio 1.0(L) 1.1 - 2.3 03/29/2024 5:09 AM [facility] eGFR by CKD-EPI >90 >=90 mL/min/1.7 3 m2 03/29/2024 5:09 AM [facility] Blood BLOOD SPECIMEN / Unknown Lab Venipuncture / Unknown 03/29/2024 4:30 AM CDT 03/29/2024 4:41 AM T Isaak Ibrahim MD LAB - CHEMISTRY KURT ZARAGOZA [facility] Organization Address City/State/ZIP Co de Phone Number [facility] [address] [place] [phone], [facility] [phone] * PHOSPHORUS BLOOD (03/29/2024 4:30 AM CDT) Phosphorus 2.9 2.8 - 5.1 mg/dL 03/29/2024 5:09 AM [facility] Blood BLOOD SPECIMEN / Unknown Lab Venipuncture / Unknown 03/29/2024 4:30 AM CDT 03/29/2024 4:41 AM CDT Isaak Ibrahim MD LAB - CHEMISTRY KURT ZARAGOZA Performing Organization Address [facility]/ZIP Co de Phone Number [address] [address], [facility] [phone] * MAGNESIUM BLOOD (03/29/2024 4:30 AM CDT) Only the most recent of2 resultswithin the time period is included. Magnesium 2.1 1.6 - 2.6 mg/dL 03/29/2024 5:09 AM CDT [facility] Blood BLOOD SPECIMEN / Unknown Lab Venipuncture / Unknown 03/29/2024 4:30 AM CDT 03/29/2024 4:41 AM CDT Isaak Ibrahim MD LAB - CHEMISTRY KURT ZARAGOZA Performing Organization Address [facility] de Phone Number [address] [address], [facility] [phone] * LIPASE BLOOD (03/29/2024 4:30 AM CDT) Only the most recent of2 resultswithin the time period is included. Lipase 13 8 - 78 U/L 03/29/2024 5:09 AM CDT [facility] Blood BLOOD SPECIMEN / Unknown Lab Venipuncture / Unknown 03/29/2024 4:30 AM CDT 03/29/2024 4:41 AM CDT Narrative [facility] - 03/29/2024 5:09 AM CDT Lipase results from the Jenkins Alinity analyzer may not be comparable with other methodologies. Isaak Ibrahim MD LAB - CHEMISTRY KURT ZARAGOZA Performing Organization Address [facility]/ZIP Co de Phone Number [address] [address], [facility] [phone] * (ABNORMAL) URINALYSIS REFLEX MICROSCOPIC REFLEX CULTURE (03/29/2024 3:54 AM CDT) Color UA Colorless(A) Straw, Yellow 03/29/2024 4:19 AM CDT [facility] Clarity UA Clear Clear 03/29/2024 4:19 AM CDT [facility] Specific Pomaria UA 1.009 1.005 - 1.030 03/29/2024 4:19 AM T [facility] pH UA 7.0 5.0 - 8.0 pH 03/29/2024 4:19 AM T [facility] Protein UA Negative Negative 03/29/2024 4:19 AM T [facility] Glucose UA Negative Negative 03/29/2024 4:19 AM T [facility] Ketone UA Negative Negative 03/29/2024 4:19 AM [facility] Bilirubin UA Negative Negative 03/29/2024 4:19 AM T [facility] Blood UA Negative Negative 03/29/2024 4:19 AM [facility] Nitrite UA Negative Negative 03/29/2024 4:19 AM [facility] Leukocyte Esterase Negative Negative 03/29/2024 4:19 AM [facility] Urobilinogen UA Negative Negative mg/dL 03/29/2024 4:19 AM [facility] Comment UA Microscopic not indicated. 03/29/2024 4:19 AM T [facility] Urine URINE SPECIMEN OBTAINED BY CLEAN CATCH PROCEDURE / Unknown Collection / Unknown 03/29/2024 3:54 AM CDT 03/29/2024 3:56 AM CDT Narrative [facility] - 03/29/2024 4:19 AM CDT Isaak Ibrahim MD LAB - URINALYSIS ORD ERABLES [facility] [address] [place] [address], [facility] [phone] * XR FEMUR LEFT 2VW (03/29/2024 12:13 AM CDT) Only the most recent of3 resultswithin the time period is included. Anatomical Region Laterality Modality Lower Extremity Radiographic Юлия ging 03/29/2024 1:16 AM CDT Narrative 03/29/2024 11:37 AM CDT PROCEDURE: XR FEMUR LEFT 2VW, DATE/TIME OF EXAM: 03/29/2024 12:13 AM, LOCATION [facility] INDICATION: R06.02: Shortness of breath ADDITIONAL CLINICAL [...] DATE/TIME OF EXAM: 03/29/2024 12:13 AM, LOCATION [facility] INDICATION: R06.02: Shortness of breath ADDITIONAL CLINICAL [...] > Dictated by Chad Francisco DO (residential installer). I, Ramiro Naranjo MD have personally reviewed and interpreted this examination/study. > Interpreting Provider: Ramiro Naranjo MD on 03/29/2024 2:30 AM Narrative 03/29/2024 2:30 AM CDT PROCEDURE: CT ABDOMEN PELVIS W CONTRAST, DATE/TIME OF EXAM: 03/29/2024 12:00 AM, LOCATION [facility] INDICATION: R06.02: Shortness of breath ADDITIONAL CLINICAL [...] DATE/TIME OF EXAM: 03/29/2024 12:00 AM, LOCATION [facility] INDICATION: R06.02: Shortness of breath ADDITIONAL CLINICAL [...] > Dictated by Chad Francisco DO (residential installer). I, Ramiro Naranjo MD have personally reviewed and interpreted this examination/study. > Interpreting Provider: Ramiro Naranjo MD on 03/29/2024 2:30 [address] Ibrahim MD [address] ORDERABLES * PT-INR [facility] (03/28/2024 7:13 PM CDT) Only the most recent of4 resultswithin the time period is included. PT 13.8 12.1 - 14.8 Seconds 03/28/2024 7:44 PM CDT [facility] INR 1.1 See Comment 03/28/2024 7:44 PM T [facility] Comment:The suggested therap eutic range for standard coumadin (warfarin) therapy is an INR of 2.0-3.0. For high-risk patients (Mechanical Mitral Valve Prosthesis, etc.), the suggested prophylactic therapeutic range is an INR of 2.5-3.5. Blood BLOOD SPECIMEN / Unknown Venipuncture / Unknown 03/28/2024 7:13 PM CDT 03/28/2024 7:16 PM CDT Linda DIAZ LAB - COAGUL ATION ORDERABLES Performing Organization Address [facility]/ZIP Co de Phone Number [address] [address], [facility] [phone] * (ABNORMAL) DIFFERENTIAL MANUAL (03/28/2024 7:13 PM CDT) Neutrophil % 72 41 - 74 % 03/28/2024 8:38 PM CDT [facility] Lymphocyte % 16(L) 17 - 47 % 03/28/2024 8:38 PM CDT [facility] Monocyte % 12(H) 3 - 11 % 03/28/2024 8:38 PM CDT [facility] Neutrophil Absolute 9.79(H) 1.60 - 7.50 x10E9/L 03/28/2024 8:38 PM CDT [facility] Lymphocyte Absolute 2.18 1.00 - 4.40 x10E9/L 03/28/2024 8:38 PM CDT [facility] Monocyte Absolute 1.63(H) 0.15 - 1.00 x10E9/L 03/28/2024 8:38 PM CDT [facility] RBC Morphology NORMAL 03/28/2024 8:38 PM CDT [facility] Large Platelets PRESENT(A) (none) 8:38 PM CDT [facility] Blood BLOOD SPECIMEN / Unknown Venipuncture / Unknown 03/28/2024 7:13 PM CDT 03/28/2024 7:18 PM CDT Linda DIAZ LAB - HEMATO LOGY ORDERABLES Performing Organization Address [facility]/State/ZIP Co de Phone Number [address] [address], [place] [phone] * (ABNORMAL) CBC W AUTO DIFFERENTIAL (03/28/2024 7:13 PM CDT) Only the most recent of2 resultswithin the time period is included. WBC 13.6(H) 4.0 - 10.7 x10E9/L 03/28/2024 8:38 PM [facility] RBC Count 4.92 4.30 - 5.80 x10E12/L 03/28/2024 8:38 PM [facility] Hemoglobin 15.7 13.3 - 17.5 g/dL 03/28/2024 8:38 PM [facility] Hematocrit 43.9 38.7 - 51.1 % 03/28/2024 8:38 PM [facility] MCV 89.2 80.0 - 98.0 fL 03/28/2024 8:38 PM [facility] MCH 31.9 26.7 - 33.6 pg 03/28/2024 8:38 PM [facility] MCHC 35.8 31.7 - 36.3 g/dL 03/28/2024 8:38 PM [facility] RDW-CV 11.9 11.3 - 14.8 % 03/28/2024 8:38 PM [facility] Platelet Count 175 150 - 420 x10E9/L 03/28/2024 8:38 PM [facility] MPV 9.7 7.8 - 11.4 fL 03/28/2024 8:38 PM [facility] Blood BLOOD SPECIMEN / Unknown Venipuncture / Unknown 03/28/2024 7:13 PM CDT 03/28/2024 7:18 PM CDT Linda Leslie [employer] LAB - HEMATO LOGY ORDERABLES [address] [address], [facility] [phone] * AMMONIA (03/28/2024 7:13 PM CDT) Ammonia 37 <=72 umol/L 03/28/2024 7:40 PM T [facility] Blood BLOOD SPECIMEN / Unknown Venipuncture / Unknown 03/28/2024 7:13 PM CDT 03/28/2024 7:16 PM CDT Linda Leslie [employer] LAB - CHEMIS TRY ORDERABLES [facility] [address] [place] [address], [facility] [phone] * XR CHEST 1VW PORTABLE (03/28/2024 7:10 PM CDT) Anatomical Region Laterality Modality Chest Radiographic Юлия ging 03/28/2024 9:11 PM CDT Narrative 03/29/2024 6:21 AM CDT PROCEDURE: XR CHEST 1VW PORTABLE, DATE/TIME OF EXAM: 03/28/2024 7:14 PM, LOCATION [facility] INDICATION: R06.02: Shortness of breath ADDITIONAL CLINICAL INFORMATION: Ordering Provider Reason For Exam: r/o effusion COMPARISON: None. FINDINGS/IMPRESSION: Mild bibasilar linear opacities, likely atelectasis. Superimposed aspiration or infection cannot be excluded. There is no pleural effusion or pneumothorax. The cardiomediastinal silhouette is normal. The visible bony thorax is intact. > Dictated by Lukas Francisco DO (Therapist'S Assistant) Ludin Anton MD have personally reviewed and interpreted this examination/study. > Interpreting Provider: Ludin Nuno MD on 03/29/2024 6:21 AM Procedure Note Ludin Nuno MD - 03/29/2024 PROCEDURE: XR CHEST 1VW PORTABLE, DATE/TIME OF EXAM: 03/28/2024 7:14 PM, LOCATION [facility] INDICATION: R06.02: Shortness of breath ADDITIONAL CLINICAL INFORMATION: Ordering Provider Reason For Exam: r/o effusion COMPARISON: None. FINDINGS/IMPRESSION: Mild bibasilar linear opacities, likely atelectasis. Superimposed aspiration or infection cannot be excluded. There is no pleural effusionor pneumothorax. The cardiomediastinal silhouette is normal. The visiblebony thorax is intact. > Dictated by Lukas Francisco DO (Therapist'S Assistant) Ludin Anton MD have personally reviewed and interpreted this examination/study. > Interpreting Provider: Ludin Nuno MD on 03/29/2024 6:21 AM Linda Leslie [employer] DIAGNOSTIC I MAGING ORDERABLES * [place] DRAIN/INJECT LARGE JOINT/BURSA (02/16/2024 10:34 AM CDT) Toño Chen MD - 02/16/2024 10:34 AM CDT Toño Cabrera MD 02/16/2024 11:34 AM Orthopaedic Surgery Procedure Note Lukas Diaz [id number] Diagnosis: Left knee pain Procedure: Injection of [...] DRAIN/INJECT LARGE JOINT/BURSA (02/16/2024 10:34 AM CDT) Toño Chen MD - 02/16/2024 10:34 AM CDT Toño Cabrera MD 02/16/2024 11:34 AM Orthopaedic Surgery Procedure Note Lukas Diaz [id number] Diagnosis: Right knee pain Procedure: Injection of [...] [place] DRAIN/INJECT LARGE JOINT/BURSA (11/17/2023 10:31 AM INTERPRETATIVE DANCER) Narrative Toño Cabrera MD - 11/17/2023 10:31 AM INTERPRETATIVE DANCER Toño Cabrera MD 11/17/2023 10:31 AM Orthopaedic Surgery Procedure Note Lukas Diaz [id number] Diagnosis: Left knee pain Procedure: Injection of [...] Report dictated by Hany Cornelius MD, (residential installer). I, Bina Perez MD have personally reviewed and interpreted this examination/study. > Interpreting Provider: Bina Perez MD on 08/25/2023 10:18 AM Narrative 08/25/2023 10:18 AM CDT PROCEDURE: US ABDOMEN LIMITED, DATE/TIME OF EXAM: 08/25/2023 7:53 AM, LOCATION [facility] INDICATION: K74.60: Cirrhosis of liver with ascites, [...] DATE/TIME OF EXAM: 08/25/2023 7:53 AM, LOCATION [facility] INDICATION: K74.60: Cirrhosis of liver with ascites, [...] Report dictated by Hany Cornelius MD, (residential installer). I, Bina Perez MD have personally reviewed and interpreted this examination/study. > Interpreting Provider: Bina Perez MD on 08/25/2023 10:18 AM Klarissa Rutledge [employer] US ORDERABL ES * CBC W DIFF (EXTERNAL RESULT ENTRY) (08/12/2023 6:18 AM CDT) Only the most recent of6 resultswithin the time period is included. WBC (EXTERNAL RESULT) 9.2 10^3/ul [facility] Hemoglobin (EXTERNAL RESULT) 14.9 g/dl [facility] Hematocrit (EXTERNAL RESULT) 44.6 % [facility] Platelets (EXTERNAL RESULT) 179 10^3/ul [facility] Neutrophil Absolute (EXTERNAL RESULT) [facility] Blood BLOOD SPECIMEN / Unknown 08/12/2023 6:18 AM CDT Historical Provider LAB - HEMATOLOGY ORDERABLES [facility] [address] [place] [address], [facility] [phone] * VITAMIN D HYDROXY (EXTERNAL RESULT) (08/12/2023 6:18 AM CDT) Vitamin D Hydroxy (External Result) 75 [facility] Blood 08/12/2023 6:18 AM CDT Historical Provider LAB - CHEMISTRY O RDERABLES [facility] [address] [place] [address], [facility] [phone] * COMP MET PANEL (EXTERNAL RESULT ENTRY) (08/12/2023 6:18 AM CDT) Only the most recent of5 resultswithin the time period is included. Glucose (EXTERNAL) 87 mg/dL [facility] Sodium (EXTERNAL RESULT) 142 mmol/L [facility] Potassium (EXTERNAL RESULT) 4.3 mmol/L [facility] Chloride (EXTERNAL RESULT) 104 mmol/L [facility] CO2 (EXTERNAL) 29 mmol/L [facility] Calcium (EXTERNAL RESULT) 9.0 mg/dL [facility] Anion Gap (EXTERNAL RESULT) [facility] BUN (EXTERNAL RESULT) 12 mg/dL [facility] Creatinine (EXTERNAL RESULT) 0.8 mg/dl [facility] Alkaline Phosphatase (EXTERNAL RESULT) 70 U/L [facility] ALT (EXTERNAL RESULT) 20 U/L [facility] AST (EXTERNAL RESULT) 15 U/L [facility] Protein Total (EXTERNAL RESULT) 7.1 gm/dL [facility] Albumin (EXTERNAL RESULT) 4.0 gm/dL [facility] Bilirubin Total (EXTERNAL RESULT) 0.5 mg/dL [facility] eGFR MDRD (EXTERNAL RESULT) 80 mL/min/1.7 3m2 [facility] eGFR (EXTERNAL) 97 mL/min/1.7 2 [facility] Blood BLOOD SPECIMEN / Unknown 08/12/2023 6:18 AM CDT Historical Provider LAB - CHEMISTRY O CAITLIN [facility] [address] [place] [address], [facility] [phone] * [place] DRAIN/INJECT LARGE JOINT/BURSA (06/29/2023 9:27 AM CDT) Narrative Toño Cabrera MD - 06/29/2023 9:27 AM CDT Toño Cabrera MD 06/29/2023 3:12 PM Orthopaedic Surgery Procedure Note Lukas Diaz [id number] Diagnosis: Left knee pain Procedure: Injection of [...] 06/29/2023 9:27 AM Toño Cabrera MD PROCEDURE/MINOR TURDI GICAL ORDERABLES * PT INR (EXTERNAL RESULT [...] 02/16/2023 12:00 PM CDT Toño Cabrera MD 02/18/2023 3:47 PM Orthopaedic Surgery Procedure Note Lukas Diaz [id number] Diagnosis: Left knee pain Procedure: Injection of [...] 08/11/2022 10:08 AM CDT Toño Cabrera MD 09/04/2022 12:50 PM Orthopaedic Surgery Procedure Note Diagnosis: Left knee pain Procedure: Injection of corticosteroid into the left knee Indications: Luksa Diaz is a 36 year old male [...] procedure. Toño Cabrera MD 08/11/2022 10:08 AM Toño [...] AM Narrative 08/11/2022 10:11 AM CDT PROCEDURE: XR KNEE LEFT 4VW OR MORE, DATE/TIME OF EXAM: 08/11/2022 9:22 AM, LOCATION [facility] INDICATION: M25.562: Pain in left knee [...] MORE, DATE/TIME OF EXAM: 29:22 AM, LOCATION [facility] INDICATION: M25.562: Pain in left knee [...] Report __ _ Patient Name: Lukas Diaz Procedure Date: 06/18/2022 9:04 AM Date of : 1985 Classification: Outpatient Gender: Male Ethnicity: Not or Race: White __ _ Providers: Amos Jama MD: Procedure: Upper [...] non-lee portions. 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 All rights reserved. The codes documented in this report are preliminary and upon loading checker review may be revised to meet current compliance requirements. Amos Pabon, 06/18/2022 9:47:50 AM Note Initiated On: 06/18/2022 9:04 AM Number of Addenda: [address] [address] [facility] 06/18/2022 9:04 AM CDT Amos Pabon MD GI PROC[facility]URE ORDERAB LES [facility] * PATHOLOGY TISSUE (03/05/2022 9:47 AM CDT) Case Report Surgical Pathology Report Case: [id number] Authorizing Provider: Amos Pabon MD Collected: 03/05/2022 09:47 AM Ordering Location: [facility] ENDOSCOPY Received: 03/05/2022 11:35 AM Pathologist: Елена Stubbs MD Specimen: Gastric, . gastric bx R/O H pylori 03/06/2022 12:19 PM [facility] Final Diagnosis Stomach, biopsy (A): - Mild reactive changes and proton pump inhibitor effect - No active inflammation or H. pylori organisms (H&E examination) 03/06/2022 12:19 PM [facility] Microscopic Description and Comment Microscopic examination substantiates the final diagnosis. 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 Operative procedure/findings: EGD - few non-bleeding superficial gastric ulcers in antrum, biopsied. 03/06/2022 12:19 PM [facility] Gross Description The requisition and specimen(s) are identified with the patient's name Lukas Diaz. Received in formalin, specimen A , are 4 pink-briscoe tissues, 0.1-0.7 cm in greatest dimension and 1.3 x 0.2 x 0.2 cm in aggregate, submitted in toto in cassette A1. DF 03/06/2022 12:19 PM [facility] Disclaimer The performance characteristics of all immunohistochemical and indirect immunofluorescence stains (if any) cited in this report were determined by the Histopathology Laboratory of [facility]. Some of these tests were [...] the attending (teaching) pathologist. 03/06/2022 12:19 PM [facility] Embedded Images 03/06/2022 12:19 PM [facility] Biopsy, NOS GASTRIC CONTENTS SPECIMEN / Unknown 03/05/2022 9:47 AM CDT 03/05/2022 11:35 AM CDT Comment:Pre-op diagnosis: Other cirrhosis of liver [K74.69] Amos Pabon MD LAB - PATHOLOGY/CYTO LOGY ORDERABLES [facility] [address] [place] [address], [facility] [phone] * EGD (03/05/2022 9:23 AM CDT) Report Endoscopy POC Endoscopy Department Report __ _ Patient Name: Lukas Diaz Procedure Date: 03/05/2022 9:23 AM Date of : 1985 Classification: Outpatient Gender: Male Ethnicity: Not or Race: White __ _ Providers: Amos Pabon Referring MD: Major Kraft (Referring ) Procedure: Upper GI endoscopy Indications: 2nd degree [...] entire procedure. Procedure Code(s): --- Professional --- 12659, Esophagogastroduode noscopy, flexible, transoral; with biopsy, single or multiple Diagnosis Code(s): --- Professional --- K21.0, Gastro-esophageal reflux disease with esophagitis K22.8, Other specified diseases of esophagus K25.9, Gastric ulcer, unspecified as acute or chronic, without hemorrhage or perforation I85.00, Esophageal varices without bleeding CPT copyright 2019 [place] [employer] Association. All rights reserved. The codes documented in this report are preliminary and upon loading checker review may be revised to meet current compliance requirements. Amos Pabon, 03/05/2022 9:59:19 AM Note Initiated On: 03/05/2022 9:23 AM Number of Addenda: [address] [address] [facility] 03/05/2022 9:23 AM CDT Amos Pabon MD GI PROCEDURE ORDERAB LES Performing Organization Address [facility] Co de Phone Number [facility] * ALPHA FETOPROTEIN BLOOD TUMOR MARKER (02/16/2022 2:26 PM CDT) Only the most recent of2 resultswithin the time period is included. Alpha-Fetoprote in Tumor Marker 2.9 <=8.3 ng/mL 02/16/2022 4:09 PM CDT [facility] Comment: AFP values will vary depending on testing procedure used. Results are not comparable across different methods. AFP values obtained by [facility] using an Jenkins Alinity Immunoassay. Blood BLOOD SPECIMEN / Unknown Lab Venipuncture / Unknown 02/16/2022 2:26 PM CDT 02/16/2022 3:24 PM CDT Amos Pabon MD LAB - CHEMISTRY ORDE NIK Performing Organization Address [facility]/ZIP Co de Phone Number [address] [address], [facility] [phone] * (ABNORMAL) BASIC METABOLIC PANEL (CALCIUM TOTAL) (02/16/2022 2:26 PM CDT) Only the most recent of2 resultswithin the time period is included. [facility] BUN 9 7 - 26 mg/dL 02/16/2022 3:50 PM [facility] Creatinine 0.76 0.71 - 1.16 mg/dL 02/16/2022 3:50 PM [facility] Sodium 139 136 - 145 mmol/L 02/16/2022 3:50 PM [facility] Potassium 3.7 3.5 - 4.5 mmol/L 02/16/2022 3:50 PM [facility] Chloride 98 98 - 107 mmol/L 02/16/2022 3:50 PM [facility] CO2 31(H) 22 - 29 mmol/L 02/16/2022 3:50 PM [facility] Glucose 70 70 - 115 mg/dL 02/16/2022 3:50 PM [facility] Calcium 10.4(H) 8.4 - 10.2 mg/dL 02/16/2022 3:50 PM [facility] Anion Gap 14 8 - 18 02/16/2022 3:50 PM [facility] BUN/Creatinine Ratio 12 7 - 23 02/16/2022 3:50 PM [facility] Osmolality Calculated 285 270 - 300 mOsm/kg 02/16/2022 3:50 PM [facility] eGFR by CKD-EPI >90 >=90 mL/min/1.7 3 m2 02/16/2022 3:50 PM [facility] Blood BLOOD SPECIMEN / Unknown Lab Venipuncture / Unknown 02/16/2022 2:26 PM CDT 02/16/2022 3:20 PM CDT Amos Pabon MD LAB - CHEMISTRY KURT ZARAGOZA [facility] Organization Address City/State/ZIP Co de Phone Number [facility] [address] [place] [address], [facility] [phone] * (ABNORMAL) HEPATIC FUNCTION PANEL (02/16/2022 2:26 PM CDT) Only the most recent of2 resultswithin the time period is included. Protein Total 8.9(H) 6.0 - 8.3 g/dL 022 3:50 PM CDT [facility] Albumin 4.0 3.4 - 5.0 g/dL 02/16/2022 3:50 PM T [facility] Bilirubin Total 0.5 0.2 - 1.2 mg/dL 01/24 3:50 PM T [facility] Bilirubin Conjugated 0.3 0.1 - 0.5 mg/dL 02/16/2022 3:50 PM T [facility] Bilirubin Unconjugated 0.2 Unconjugated Bilirubin is a calculated value: Reference ranges have not been established. mg/dL 02/16/2022 3:50 PM CDT [facility] Alkaline Phosphatase 130 40 - 150 U/L 02/16/2022 3:50 PM T [facility] ALT 20 5 - 55 U/L 02/16/2022 3:50 PM T [facility] AST 24 5 - 34 U/L 02/16/2022 3:50 PM T [facility] Albumin/Globulin Ratio 0.8(L) 1.1 - 2.3 02/16/2022 3:50 PM [facility] Blood BLOOD SPECIMEN / Unknown Lab Venipuncture / Unknown 02/16/2022 2:26 PM CDT 02/16/2022 3:20 PM CDT Amos Pabon MD LAB - CHEMISTRY KURT ZARAGOZA [facility] Organization Address City/[facility] Co de Phone Number [address] [address], [facility] [phone] * (ABNORMAL) VITAMIN D 25-HYDROXY (12/19/2021 1:35 AM INTERPRETATIVE DANCER) Vitamin D, 25 Hydroxy 7.0(L) 30.0 - 80.0 ng/mL 12/19/2021 2:30 AM INTERPRETATIVE DANCER [facility] Comment: The recommendations for 25-Hydroxy Vitamin D clinical decision points are as follows: Deficient: <20.0 ng/mL Insufficient: 20.0 - 29.9 ng/mL Sufficient: > or =30.0 ng/mL If the 25-Hydroxy Vitamin D results are inconsitent with clinical evidence, it is recommended that follow-up testing using a method such as LC/MS/MS be performed to confirm the result. Reference: The Endocrine Society Clinical Practice Guidelines. 2011 Blood BLOOD SPECIMEN / Unknown Lab Venipuncture / Unknown 12/19/2021 1:35 AM INTERPRETATIVE DANCER 12/19/2021 1:46 AM INTERPRETATIVE DANCER Anastasia Chowdhury PENCIL MAKER-MANAGER TELEMETRY LAB - CHEMISTR Y ORDERABLES [facility] [address] [place] [address], [facility] [phone] * CT HIP LEFT WO CONTRAST (12/18/2021 6:44 AM INTERPRETATIVE DANCER) Anatomical Region Laterality Modality Lower Extremity Computed Tomogra phy 12/18/2021 6:48 AM INTERPRETATIVE DANCER Impressions 12/18/2021 8:00 AM INTERPRETATIVE DANCER Impression: Displaced left femoral neck fracture, age-indeterminate. Cannot exclude a small posterior-superior acetabular wall fracture. See comments above. Report drafted by Shaun Marie (resident) IDr. VALENTE MD have personally reviewed and interpreted this examination/study. This report was electronically signed by VALENTE MCDUFFIE MD on 12/18/2021 8:00 AM . Narrative 12/18/2021 8:00 AM INTERPRETATIVE DANCER Procedure Information DATE: 12/18/2021 6:45 AM EXAMINATION: [...] URINE DRUG SCREEN IMMUNOASSAY (12/18/2021 4:57 AM INTERPRETATIVE DANCER) [facility] Amphetamines Screen Urine Positive(A) Negative : < 1000 ng/mL 12/18/2021 5:21 AM INTERPRETATIVE DANCER [facility] Comment: Positive urine amphetamine screening results should be confirmed by another generally accepted non-immunological method such as gas chromatography or mass spectrometry. Barbiturates Screen Urine Negative Negative : < 200 ng/mL 12/18/2021 5:21 AM [facility] Benzodiazepine Screen Urine Negative Negative : < 200 ng/mL 12/18/2021 5:21 AM [facility] Opiates Urine Positive(A) Negative : < 300 ng/mL 12/18/2021 5:21 AM [facility] Comment:Positive urine opiat e screening results should be confirmed by another generally accepted non-immunological method such as gas chromatography or mass spectrometry. Cocaine Metabolites Urine Negative Negative : < 300 ng/mL 12/18/2021 5:21 AM [facility] Phencyclidine Screen Urine Negative Negative : < 25 ng/ml 12/18/2021 5:21 AM [facility] Cannabinoids Screen Urine Positive(A) Negative : <50 ng/mL 12/18/2021 5:21 AM [facility] Comment:Positive urine canna binoids (THC) screening results should be confirmed by another generally accepted non-immunological method such as gas chromatography or mass spectrometry. Methadone Screen Urine Negative Negative : < 300 ng/mL 12/18/2021 5:21 AM [facility] Fentanyl Screen Urine Positive(A) Negative : <1.0 ng/mL 12/18/2021 5:21 AM [facility] Comment:Positive urine fenta nyl screening results should be confirmed by another generally accepted non-immunological method such as gas chromatography or mass spectrometry. Urine URINE / Unknown Collection / Unknown 12/18/2021 4:57 AM [facility] 12/18/2021 4:59 AM [facility] - 12/18/2021 5:21 AM [facility] The Urine Toxicology Screening Panel does not screen for Propoxyphene, Meprobamate, Carisoprodol, Trazodone, gfym-frc-dsjscsu medications and/or volatiles (Acetone, Isopropanol, Methanol or Ethylene Glycol). Ethanol, Salicylate, Acetaminophen, Tricyclic Antidepressants and several therapeutic drugs may be individually assayed in serum or plasma specimen. Toxicology testing by the [facility] is an aid to medical diagnosis and treatment of patients. No documented chain of custody was maintained. Results are intended to be used for clinical purposes only. Lima Thompson MD LAB - URINE CHEMISTR Y ORDERABLES [facility] [address] [place] [address], [facility] [phone] * BLOOD TYPE VERIFICATION (12/18/2021 4:44 AM INTERPRETATIVE DANCER) ABO Rh B POS 12/18/2021 5:1 9 AM INTERPRETATIVE DANCER [facility] B[facility] LAB Blood Bank BLOOD SPECIMEN / Unknown Lab Venipuncture / Unknown 12/18/2021 4:44 AM INTERPRETATIVE DANCER 12/18/2021 4:51 AM INTERPRETATIVE DANCER Lima Thompson MD LAB - BLOOD BANK ORD ERABLES [facility] [address] [place] [address], [facility] [phone] * SARS-COV-2 (COVID-19)+INFLU A+B PCR RAPID (12/18/2021 4:17 AM INTERPRETATIVE DANCER) COVID-19 PCR Not detected Not detected 12/18/19 6:44 AM [facility] Influenza A Rapid MISAEL Not Detected Not Detected 12/18/2021 6:44 AM [facility] Influenza B MISAEL Rapid Not Detected Not Detected 12/18/2021 6:44 AM [facility] Microbiology SPECIMEN FROM NASOPHARYNGEAL STRUCTURE / Unknown Collection / Unknown 12/18/2021 4:17 AM INTERPRETATIVE DANCER 12/18/2021 6:15 AM INTERPRETATIVE DANCER Narrative [facility] - 12/18/2021 6:44 AM INTERPRETATIVE DANCER Influenza assay performed by [employer]. [...] acid amplification assay performance was validated by [facility]. This test has been authorized by the Food and Drug administration (FDA)under an Emergency Use Authorization (EUA). This test has been validated [...] Thompson MD LAB - MICROBIOLOGY O RDERABLES Performing Organization Address City/[facility]/ZIP Co de Phone Number [facility] [address] [place] [phone], [facility] [phone] * TYPE + SCREEN PANEL (12/18/2021 4:17 AM INTERPRETATIVE DANCER) Antibody Screen NEG 5:14 AM INTERPRETATIVE DANCER [facility] B[facility] LAB ABO Rh B POS 12/18/2021 5:14 AM INTERPRETATIVE DANCER [facility] BLOOD BANK LAB Blood Bank BLOOD SPECIMEN / Unknown Venipuncture / Unknown 12/18/2021 4:17 AM INTERPRETATIVE DANCER 12/18/2021 4:29 AM INTERPRETATIVE DANCER Lima Thompson MD LAB - BLOOD BANK ORD ERABLES Performing Organization Address [facility]/ZIP Co de Phone Number [facility] B[facility] LAB [address] [place] [address], [place] [phone] * XR PELVIS W LEFT HIP 2VW (12/17/2021 11:05 PM INTERPRETATIVE DANCER) Anatomical Region Laterality Modality Pelvis Radiographic Юлия ging 12/17/2021 11:0 6 PM INTERPRETATIVE DANCER Impressions 12/18/2021 10:05 AM INTERPRETATIVE DANCER IMPRESSION: Superolaterally displaced fracture of the left femoral neck. Report dictated by Shama Landry M.D. (residential installer). IDr. ALO, MD, FRCR have personally reviewed and interpreted this examination/study. This report was electronically signed by ALO VAZQUEZ MD, FRCR on 12/18/2021 10:05 AM . Narrative 12/18/2021 10:05 AM INTERPRETATIVE DANCER EXAMINATION: XR PELVIS W LEFT HIP 2VW [...] Report dictated by Shama Landry M.D. (residential installer). IDr. ALO MD, FRCR have personally reviewedand interpreted this examination/study. This report was electronically signed by ALO VAZQUEZ MD, FRCR on 12/18/2021 10:05 AM . Lima Thompson MD DIAGNOSTIC IMAGING O RDERABLES * TIFFANY BLOOD SCREEN W/REFLEX TITER (10/01/2021 11:38 AM INTERPRETATIVE DANCER) TIFFANY IgG None Detected None Detected 10/04/2021 12:34 AM INTERPRETATIVE DANCER [facility] ([facility]) Comment: If suspicion of connective tissue disease is strong and TIFFANY EIA is negative, consider testing for TIFFANY by IFA ([id number]). INTERPRETIVE INFORMATION: Anti-Nuclear Antibodies (TIFFANY), IgG by SAVANNAH Antinuclear Antibodies (TIFFANY), IgG by SAVANNAH: TIFFANY specimens are screened using enzyme-linked immunosorbent assay (SAVANNAH) methodology. All SAVANNAH results reported as Detected are further tested by indirect fluorescent assay (IFA) using HEp-2 substrate with an IgG-specific conjugate. The TIFFANY SAVANNAH screen is designed to detect antibodies against dsDNA, histones, SS-A (Ro), SS-B (La), Clayton, Clayton/DOOR MACHINE OPERATOR, Scl-70, Nuris-1, centromeric proteins, other antigens extracted from the HEp-2 cell nucleus. TIFFANY SAVANNAH assays have been reported to have lower sensitivities than TIFFANY IFA for systemic autoimmune rheumatic diseases (SARD). Negative results do not necessarily rule out SARD. Performed By: [facility] [address] [address] Radiation Oncology Nurse: Ivanna Ballard MD Blood BLOOD SPECIMEN / Unknown Lab Venipuncture / Unknown 10/01/2021 11:38 AM INTERPRETATIVE DANCER 10/01/2021 11:45 AM INTERPRETATIVE DANCER Amos Pabon MD LAB - CHEMISTRY KURT ZARAGOZA [facility] ([facility]) [address] [place] [address], [facility] * [id number] BLOOD (10/01/2021 11:38 AM INTERPRETATIVE DANCER) Poixp-4-Jintjo ypsin 159 90 - 200 mg/dL 10/01/2021 12:55 PM INTERPRETATIVE DANCER [facility] Blood BLOOD SPECIMEN / Unknown Lab Venipuncture / Unknown 10/01/2021 11:38 AM INTERPRETATIVE DANCER 10/01/2021 11:46 AM INTERPRETATIVE DANCER Amos Pabon MD LAB - CHEMISTRY KURT ZARAGOZA [place] [id number] [place] [address], [facility] [phone] * (ABNORMAL) IRON BLOOD (10/01/2021 11:38 AM INTERPRETATIVE DANCER) Iron 17(L) 50 - 175 ug/dL 10/01/2021 12:55 PM INTERPRETATIVE DANCER [facility] Blood BLOOD SPECIMEN / Unknown Lab Venipuncture / Unknown 10/01/2021 11:38 AM INTERPRETATIVE DANCER 10/01/2021 11:46 AM INTERPRETATIVE DANCER Amos Pabon MD LAB - CHEMISTRY KURT ZARAGOZA Performing Organization Address City/[facility]/ZIP Co de Phone Number [address] [address], [facility] [phone] * (ABNORMAL) HEPATITIS B SURFACE ANTIBODY (10/01/2021 11:38 AM INTERPRETATIVE DANCER) Hepatitis B Virus Surface Antibody Reactive( A) Non-react young 10/01/2021 1:14 PM [facility] Comment: > 12 mIU/mL Hepatitis B surface Antibody (HBsAb). Reactive for HBsAb - individual is considered immune to Hepatitis B Virus infection. Hepatitis B Surface Antibody Quantitative 50.9(H) <8.0 mIU/mL 10/01/2021 1:14 PM [facility] Comment: Hepatitis B Surface Antibody Numeric Result Interpretation: Nonreactive: <8.0 mIU/mL Indeterminate: 8.0 - 12.0 mIU/mL Reactive: >12.0 mIU/mL Blood BLOOD SPECIMEN / Unknown Lab Venipuncture / Unknown 10/01/2021 11:38 AM INTERPRETATIVE DANCER 10/01/2021 11:46 AM INTERPRETATIVE DANCER Amos Pabon MD LAB - CHEMISTRY KURT ZARAGOZA Performing Organization Address City/[facility]/ZIP Co de Phone Number [address] [address], [facility] [phone] * HEPATITIS B CORE ANTIBODY (10/01/2021 11:38 AM INTERPRETATIVE DANCER) HBc Antibody Total Non-reacti ve Non-reacti ve 10/01/2021 1:14 PM [facility] Blood BLOOD SPECIMEN / Unknown Lab Venipuncture / Unknown 10/01/2021 11:38 AM INTERPRETATIVE DANCER 10/01/2021 11:46 AM INTERPRETATIVE DANCER Amos Pabon MD LAB - CHEMISTRY ORDE RABLES Performing Organization Address City/[facility]/ZIP Co de Phone Number [address] [address], [facility] [phone] * HEPATITIS B SURFACE ANTIGEN W RFLX CONFIRMATION (10/01/2021 11:38 AM INTERPRETATIVE DANCER) Pathologist [facility] [place] Hepatitis B Virus Surface Antigen Non-reacti ve Non-reacti ve 10/01/2021 1:14 PM INTERPRETATIVE DANCER [facility] Blood BLOOD SPECIMEN / Unknown Lab Venipuncture / Unknown 10/01/2021 11:38 AM INTERPRETATIVE DANCER 10/01/2021 11:46 AM INTERPRETATIVE DANCER Amos Paobn MD LAB - CHEMISTRY KURT ZARAGOZA Performing Organization Address [facility]/ZIP Co de Phone Number [address] [address], [facility] [phone] * (ABNORMAL) IGG BLOOD (10/01/2021 11:38 AM INTERPRETATIVE DANCER) Pathologist [facility] IgG 2,513(H) 767-1,590 mg/dL 10/01/2021 12:55 PM INTERPRETATIVE DANCER [facility] Blood BLOOD SPECIMEN / Unknown Lab Venipuncture / Unknown 10/01/2021 11:38 AM INTERPRETATIVE DANCER 10/01/2021 11:46 AM INTERPRETATIVE DANCER Amos Pabon MD LAB - CHEMISTRY KURT ZARAGOZA Performing Organization Address City/[facility]/ZIP Co de Phone Number [address] [address], [place] [phone] * HEPATITIS C ANTIBODY (10/01/2021 11:38 AM INTERPRETATIVE DANCER) Pathologist [facility] [place] Hepatitis C Antibody Non-react young Non-reac tive 10/01/2021 1:14 PM INTERPRETATIVE DANCER [facility] Comment:Hepatitis C Antibody screen indicates [...] Lab Venipuncture / Unknown 10/01/2021 11:38 AM INTERPRETATIVE DANCER 10/01/2021 11:46 AM INTERPRETATIVE DANCER Amos Pabon MD LAB - CHEMISTRY KURT ZARAGOZA [facility] [address] [place] [address], [place] [phone] * (ABNORMAL) HEPATITIS A ANTIBODY (10/01/2021 11:38 AM INTERPRETATIVE DANCER) Hepatitis A Virus Antibody Total Positive( A) Negative 10/03/2021 5:38 PM INTERPRETATIVE DANCER [facility] ([facility]) Comment: The positive anti-HAV is consistent with recent or remote Hepatitis A infection or antibody response to HAV vaccination. False positive anti-HAV can occur. Performed by [employer], [address] [place] [address] [email or web address], Ivanna Ballard MD, Lab. Director Blood BLOOD SPECIMEN / Unknown Lab Venipuncture / Unknown 10/01/2021 11:38 AM INTERPRETATIVE DANCER 10/01/2021 11:45 AM INTERPRETATIVE DANCER Amos Pabon MD LAB - CHEMISTRY KURT ZARAGOZA Performing Organization Address City/[facility]/ZIP Co de Phone Number [facility] ([facility]) [address] [place], [place] [id number] [place] [address] * (ABNORMAL) FERRITIN (10/01/2021 11:38 AM INTERPRETATIVE DANCER) Ferritin 19(L) 22 - 275 ng/mL 10/01/2021 1:14 PM INTERPRETATIVE DANCER [facility] Blood BLOOD SPECIMEN / Unknown Lab Venipuncture / Unknown 10/01/2021 11:38 AM INTERPRETATIVE DANCER 10/01/2021 11:46 AM INTERPRETATIVE DANCER Amos Pabon MD LAB - CHEMISTRY KURT ZARAGOZA [facility] [address] [place] [address], [place] [phone] Care Teams Pearl Hand Relationship Specialty Start Date End Date Teodoro Lopez PCP - General 05/17/24 Eric Oconnell MD Hospitalist 10/10/21
--- OUTSIDE RECORDS SUMMARY | 2024-12-03 10:51 | XMS_ITS | Encounter Summary ---
Author Organization [facility] Health Address [address] [facility] [place] [address] Care Team Providers Care Artillery Or Naval Gunfire Observer Name Role Phone Eric Oconnell MD Unavailable [phone] Gregorio James MD Primary Care Provider [phone] Teodoro Lopez Primary Care Provider Unavailabl e Encounter Details Date Type Department Care Team (Late st Contact Info) Description 05/01/2024 Telephone [facility] - [address] [facility], [place] [address] Nahed Quinonez, ALFREDO Social History [...] need for new PA for Xifaxan. Reports [facility] denies pt need for Xifiaxan while taking lactulose. RN place request for pt assistance renewal for pt. New med list including both medications sent to facility. Alma Rojo [facility] notified for pt assistance renewal. documented in this encounter Plan of Treatment Upcoming Encounters Date Type Department Care Team (Late st Contact Info) Description 01/08/2025 8:00 AM CDT Appointment [facility] [address] [place] [address] 01/08/2025 9:00 AM CDT Office Visit [facility] - GI [address] [facility], [place] [phone] Amos Pabon MD [address] [place] [address] [address] [facility] [place] [address] documented as of this encounter Goals Goal [...] on filedocumented in this encounter Care Teams Artillery Or Naval Gunfire Observer Relationship Specialty Start Date End Date Gregorio James MD [address] [place] [phone] PCP - General 08/11/22 05/16/24 Teodoro Lopez PCP - General 05/17/24 Eric Oconnell MD Hospitalist 10/10/21 documented as of this encounter
--- OUTSIDE RECORDS SUMMARY | 2024-12-03 10:51 | XMS_ITS | Clinical Summary ---
Author Organization [facility] [employer] Address [address] [place] [address] Care Team Providers Care Control Room Technician Name Role Phone Eric Oconnell MD Unavailable [phone] Teodoro Lopez Primary Care Provider Unavailabl e Source Comments [facility],non-owned Affiliates and Associated Physician Practices is amultiple site organization consisting of ambulatory clinics and hospital sitesin [place], [place], [place] and [place]. This disclosure is being madepursuant to the Care Everywhere program and may not contain all information available regarding this patient. Last updated 18.[facility] [employer] Allergies Active Allergy Reactions Criticality Noted Date [...] affected area as needed Active HYDROcodone-acetamin ophen ([place]add[place]) 5-325 MG tablet Take 1 (one) tablet [...] Info) Description 01/08/2025 8:00 AM CDT Appointment [facility] [address] [place] [address] 01/08/2025 9:00 AM CDT Office Visit [facility] [address] [facility], [place] [address] Amos Pabon MD [address] [place] [address] Health Maintenance Due Date Last Done Comments LIPID TESTING 1984 MEDICARE AWV 12 MONTHS 1984 HIV SCREENING 1999 DTAP/TDAP/TD VACCINES (1 - Tdap) 2003 HEPATITIS B VACCINE (1 of 3 - 19+ 3-dose series) 2003 PNEUMOCOCCAL VACCINE (1 of 2 - PCV) 2003 COVID-19 VACCINE ( - season) 2024 01/06/2024, 08/30/2023, 08/14/2021 INFLUENZA VACCINE [...] HEPATITIS C ANTIBODY Routine 10/01/2021 11:38 AM [employer] Cirrhosis of liver with ascites, unspecified hepatic cirrhosis type (HCC) from Last 3 Months or Most Recently Relevant to Health Maintenance Results * (ABNORMAL) COMPREHENSIVE METABOLIC PANEL (03/29/2024 4:30 AM CDT) BUN 10 7 - 26 mg/dL 03/29/2024 5:09 AM [facility] Creatinine 0.84 0.71 - 1.16 mg/dL 03/29/2024 5:09 AM [facility] Sodium 135(L) 136 - 145 mmol/L 03/29/2024 5:09 AM [facility] Potassium 3.8 3.5 - 4.5 mmol/L 03/29/2024 5:09 AM [facility] Chloride 105 98 - 107 mmol/L 03/29/2024 5:09 AM [facility] CO2 22 22 - 29 mmol/L 03/29/2024 5:09 AM [facility] Glucose 87 70 - 115 mg/dL 03/29/2024 5:09 AM [facility] Calcium 9.6 8.4 - 10.2 mg/dL 03/29/2024 5:09 AM [facility] Protein Total 7.6 6.0 - 8.3 g/dL 03/29/2024 5:09 AM [facility] Albumin 3.8 3.4 - 5.0 g/dL 03/29/2024 5:09 AM [facility] Bilirubin Total 0.9 0.2 - 1.2 mg/dL 03/29/2024 5:09 AM [facility] Alkaline Phosphatase 81 40 - 150 U/L 03/29/2024 5:09 AM [facility] ALT 20 5 - 55 U/L 03/29/2024 5:09 AM [facility] AST 17 5 - 34 U/L 03/29/2024 5:09 AM [facility] Anion Gap 8 6 - 16 03/29/2024 5:09 AM [facility] BUN/Creatinine Ratio 12 7 - 23 03/29/2024 5:09 AM [facility] Osmolality Calculated 278 275 - 295 mOsm/kg 03/29/2024 5:09 AM [facility] Albumin/Globulin Ratio 1.0(L) 1.1 - 2.3 03/29/2024 5:09 AM [facility] eGFR by CKD-EPI >90 >=90 mL/min/1.7 3 m2 03/29/2024 5:09 AM [facility] Blood BLOOD SPECIMEN / Unknown Lab Venipuncture / Unknown 03/29/2024 4:30 AM T 03/29/2024 4:41 AM [facility] Isaak Ibrahim MD LAB - CHEMISTRY KURT ZARAGOZA [facility] Organization Address City/State/ZIP Co de Phone Number [facility] [address] [place] [address], [place] [phone] * HEPATITIS C ANTIBODY (10/01/2021 11:38 AM [employer]) Hepatitis C Antibody Non-react young Hansen-reac tirickey 10/01/2021 1:14 PM [employer] [facility] Comment:Hepatitis C Antibody screen indicates no serologic evidence of past or current infection with Hepatitis C Virus. Patients with unexplained liver disease who are immunocompromised or suspected of having acute Hepatitis C infection may benefit from Nucleic Acid Test (MARIBELL) for Hepatitis C Viral RNA to confirm Hepatitis C status. Blood BLOOD SPECIMEN / Unknown Lab Venipuncture / Unknown 10/01/2021 11:38 AM [employer] 10/01/2021 11:46 AM [employer] Amos Pabon MD LAB - CHEMISTRY KURT ZARAGOZA [facility] [address] [place] [address], [facility] [phone] from Last 3 Months or Most Recently Relevant to Health Maintenance Advance Directives * Full Code (Latest Code Status on File) Date Activated Date Inactivated Comments 03/29/2024 12:13 AM 03/29/2024 11:54 PM Care Teams Control Room Technician Relationship Specialty Start Date End Date Teodoro Lopez PCP - General 05/17/24 Eric Oconnell MD Hospitalist 10/10/21
--- OUTSIDE RECORDS SUMMARY | 2024-12-03 11:48 | XMS_ITS | Encounter Summary ---
Author Organization [facility] Address [address] [place] [address] Care Team Providers Care Academic Affairs Dean Name Role Phone Major Kraft MD Primary Care Provider [phone] Eric Oconnell MD Unavailable [phone] Raya Carty PA-C Primary Care Provider Major Kraft MD Primary Care Provider [phone] Gregorio James MD Primary Care Provider [phone] Teodoro Lopez Primary Care Provider Unavailabl e Reason for Visit * Reason Onset Date Comments Pre-op Instructions 02/26/2022 Encounter Details Date Type Department Care Team (Late st Contact Info) Description 02/26/2022 Patient Outreach [facility] [address] [place] [id number] Ginger Amador RN Pre-op Instructions Social History [...] Info) Description 01/08/2025 8:00 AM CDT Appointment [facility] [address] [place] [address] 01/08/2025 9:00 AM CDT Office Visit [facility] [place] [address] [facility] [place] [address] Amos Pabon MD [address] [place] [address] [place] [address] documented as of this encounter Goals Goal [...] on filedocumented in this encounter Care Teams Academic Affairs Dean Relationship Specialty Start Date End Date Major Kraft MD PCP - General 07/01/21 06/08/22 Raya Carty PA-C [address] [place] [phone] PCP - General 06/09/22 07/05/22 Major Kraft MD PCP - General 07/06/22 08/10/22 Gregorio James MD [address] [place] [id number] PCP - General 08/11/22 05/16/24 Teodoro Lopez PCP - General 05/17/24 Eric Oconnell MD Hospitalist 10/10/21 documented as of this encounter
--- OUTSIDE RECORDS SUMMARY | 2024-12-03 11:48 | XMS_ITS | Patient Health Summary ---
Author Organization [facility] Address [address] [place] [address] Care Team Providers Care Crawler Tractor Operator Name Role Phone Eric Oconnell MD Unavailable [phone] Teodoro Lopez Primary Care Provider Unavailabl e Note from [facility],non-owned Affiliates and Associated Physician Practices is amultiple site organization consisting of ambulatory clinics and hospital sitesin [place], [place], [place] and [place]. This disclosure is being madepursuant to the [...] to affected area as needed * HYDROcodone-acetaminophen (Butler) 5-325 MG tablet Take 1 (one) tablet [...] 33.28 03/28/2024 6:10 PM CDT Procedures * NJ DRAIN/INJECT LARGE JOINT/BURSA(Performed 05/17/2024) Performed for Primary osteoarthritis of both knees * NJ DRAIN/INJECT LARGE JOINT/BURSA(Performed 05/17/2024) Performed for Primary [...] 03/28/2024) Performed for Shortness of breath * NJ DRAIN/INJECT LARGE JOINT/BURSA(Performed 02/16/2024) Performed for Primary osteoarthritis of both knees * NJ DRAIN/INJECT LARGE JOINT/BURSA(Performed 02/16/2024) Performed for Primary osteoarthritis of both knees * NJ DRAIN/INJECT LARGE JOINT/BURSA(Performed 11/17/2023) Performed for Primary osteoarthritis of left knee * US ABDOMEN LIMITED(Performed 08/25/2023) Performed for Cirrhosis of liver with ascites, unspecified hepatic cirrhosis type (HCC) * VITAMIN D HYDROXY (EXTERNAL RESULT)(Performed 08/12/2023) * CBC W DIFF (EXTERNAL RESULT ENTRY)(Performed 08/12/2023) * COMP MET PANEL (EXTERNAL RESULT ENTRY)(Performed 08/12/2023) * NJ DRAIN/INJECT LARGE JOINT/BURSA(Performed 06/29/2023) Performed for Primary osteoarthritis of left knee * PT INR (EXTERNAL RESULT ENTRY)(Performed 02/22/2023) * COMP MET PANEL (EXTERNAL RESULT ENTRY)(Performed 02/22/2023) * CBC W DIFF (EXTERNAL RESULT ENTRY)(Performed 02/22/2023) * NJ DRAIN/INJECT LARGE JOINT/BURSA(Performed 02/16/2023) Performed for Primary osteoarthritis of left knee * NJ DRAIN/INJECT LARGE JOINT/BURSA(Performed 08/11/2022) Performed for Left knee pain, unspecified chronicity, Primary osteoarthritis of left knee * XR KNEE LEFT 4VW OR MORE(Performed 08/11/2022) Performed for Left knee pain, unspecified chronicity * NJ ED EGD FLEX TRANSORAL DX(Performed 06/18/2022) Performed for Chronic gastric ulcer without hemorrhage and without perforation * EGD(Performed 06/18/2022) * PATHOLOGY TISSUE(Performed 03/05/2022) Performed for Other cirrhosis of liver (HCC) * NJ ED EGD FLEX TRANSORAL DX(Performed 03/05/2022) Performed [...] ascites, unspecified hepatic cirrhosis type (HCC) * [id number] BLOOD(Performed 10/01/2021) Performed for Cirrhosis of liver [...] DIFF (EXTERNAL RESULT ENTRY)(Performed 05/14/2021) Results * NJ DRAIN/INJECT LARGE JOINT/BURSA (05/17/2024 3:13 PM CDT) Narrative Toño Cabrera MD - 05/17/2024 3:13 PM CDT Toño Cabrera MD 05/17/2024 3:13 PM Orthopaedic Surgery Procedure Note Lukas Diaz [id number] Diagnosis: Left knee pain Procedure: Injection of [...] Cabrera MD PROCEDURE/MINOR TRUDI GICAL ORDERABLES * NJ DRAIN/INJECT LARGE JOINT/BURSA (05/17/2024 3:12 PM CDT) Narrative Toño Cabrera MD - 05/17/2024 3:12 PM CDT Toño Cabrera MD 05/17/2024 3:13 PM Orthopaedic Surgery Procedure Note Lukas Diaz [id number] Diagnosis: Right knee pain Procedure: Injection of [...] OF EXAM: 05/17/2024 12:11 PM, LOCATION [facility] INDICATION: M17.0: Bilateral primary osteoarthritis of knee. FINDINGS: There is overall preservation of vertebral body height. Left convex scoliosis centered at L3-4 is present. The visualized sacroiliac joints are normal. DIAGNOSIS: Left convex scoliosis. Edited by Carolina Brown on 05/17/2024 1:03 PM > Interpreting Provider: Sagar Rizo MD on 05/17/2024 1:19 PM Procedure Note aSgar Rizo MD - 05/17/2024 PROCEDURE: XR LUMBAR SPINE 3VW, DATE/TIME OF EXAM: 05/17/2024 12:11 PM, LOCATION [facility] INDICATION: M17.0: Bilateral primary osteoarthritis [...] (mg/dL) <10 <10 mg/dL 12:36 PM T [facility] Ethanol Calculated (g/dL) <0.010 <=0.010 g/dL 03/29/2024 12:36 PM T [facility] Blood BLOOD SPECIMEN / Unknown Venipuncture / Unknown 03/29/2024 12:08 PM CDT 03/29/2024 12:16 PM CDT Narrative [facility] - 03/29/2024 12:36 PM CDT Ethanol Interp <10: None Detected. Depression of INSPECTOR OPEN DIE: >100 mg/dl Potentially Critical: >250 mg/dl Potentially [...] - CHEMISTR Y ORDERABLES Performing Organization Address City/[facility]/ZIP Co de Phone Number [facility] [address] [place] [address], [facility] [phone] * CULTURE BLOOD (03/29/2024 4:31 AM CDT) Only the most recent of2 resultswithin the time period is included. Pathologist [facility] Culture No growth day 5 DEVAUGHN 04/03/2024 8:01 AM CDT [facility] Blood PERIPHERAL BLOOD / Unknown Lab Venipuncture / Unknown 03/29/2024 4:31 AM CDT 03/29/2024 4:37 AM CDT Isaak Ibrahim MD LAB - MICROBIOLOGY O RDERABLES Performing Organization Address City/[facility]/ZIP Co de Phone Number [facility] [address] [place] [address], [facility] [phone] * CBC W/O DIFFERENTIAL (03/29/2024 4:30 AM CDT) Only the most recent of4 resultswithin the time period is included. Pathologist [facility] WBC 8.7 4.0 - 10.7 x10E9/L 03/29/2024 5:08 AM [facility] RBC Count 4.81 4.30 - 5.80 x10E12/L 03/29/2024 5:08 AM [facility] Hemoglobin 15.3 13.3 - 17.5 g/dL 03/29/2024 5:08 AM [facility] Hematocrit 43.4 38.7 - 51.1 % [...] Ibrahim MD LAB - HEMATOLOGY ORD ERABLES [facility] [address] [place] [phone], [facility] [phone] * (ABNORMAL) COMPREHENSIVE METABOLIC PANEL (03/29/2024 4:30 [...] Ibrahim MD LAB - CHEMISTRY KURT ZARAGOZA [facility] Organization Address City/State/ZIP Co de Phone Number [facility] [address] [place] [phone], [facility] [phone] * PHOSPHORUS BLOOD (03/29/2024 4:30 AM CDT) Phosphorus 2.9 2.8 - 5.1 mg/dL 03/29/2024 5:09 AM [facility] Blood BLOOD SPECIMEN / Unknown Lab Venipuncture / Unknown 03/29/2024 4:30 AM CDT 03/29/2024 4:41 AM CDT Isaak Ibrahim MD LAB - CHEMISTRY KURT ZARAGOZA Performing Organization Address [facility]/ZIP Co de Phone Number [address] [address], [facility] [phone] * MAGNESIUM BLOOD (03/29/2024 4:30 AM CDT) Only the most recent of2 resultswithin the time period is included. Magnesium 2.1 1.6 - 2.6 mg/dL 03/29/2024 5:09 AM CDT [facility] Blood BLOOD SPECIMEN / Unknown Lab Venipuncture / Unknown 03/29/2024 4:30 AM CDT 03/29/2024 4:41 AM CDT Isaak Ibrahim MD LAB - CHEMISTRY KURT ZARAGOZA Performing Organization Address [facility] de Phone Number [address] [phone], [facility] [phone] * LIPASE BLOOD (03/29/2024 4:30 AM CDT) Only the most recent of2 resultswithin the time period is included. Lipase 13 8 - 78 U/L 03/29/2024 5:09 AM CDT [facility] Blood BLOOD SPECIMEN / Unknown Lab Venipuncture / Unknown 03/29/2024 4:30 AM CDT 03/29/2024 4:41 AM CDT Narrative [facility] - 03/29/2024 5:09 AM CDT Lipase results from the Jenkins Alinity analyzer may not be comparable with other methodologies. Isaak Ibrahim MD LAB - CHEMISTRY KURT ZARAGOZA Performing Organization Address [facility]/ZIP Co de Phone Number [address] [phone], [facility] [phone] * (ABNORMAL) URINALYSIS REFLEX MICROSCOPIC REFLEX CULTURE (03/29/2024 3:54 AM CDT) Color UA Colorless(A) Straw, Yellow 03/29/2024 4:19 AM CDT [facility] Clarity UA Clear Clear 03/29/2024 4:19 AM CDT [facility] Specific [place] UA 1.009 1.005 - 1.030 03/29/2024 4:19 AM T [facility] pH UA 7.0 5.0 - 8.0 pH 03/29/2024 4:19 AM T [facility] Protein UA Negative Negative 03/29/2024 4:19 AM T [facility] Glucose UA Negative Negative 03/29/2024 4:19 AM T [facility] Ketone UA Negative Negative 03/29/2024 4:19 AM [facility] Bilirubin UA Negative Negative 03/29/2024 4:19 AM T [facility] Blood UA Negative Negative 03/29/2024 4:19 AM [facility] Nitrite UA Negative Negative 03/29/2024 4:19 AM [facility] Leukocyte Esterase Negative Negative 03/29/2024 4:19 AM [facility] Urobilinogen UA Negative Negative mg/dL 03/29/2024 4:19 AM [facility] Comment UA Microscopic not indicated. 03/29/2024 4:19 AM T [facility] Urine URINE SPECIMEN OBTAINED BY CLEAN CATCH PROCEDURE / Unknown Collection / Unknown 03/29/2024 3:54 AM CDT 03/29/2024 3:56 AM CDT Narrative [facility] - 03/29/2024 4:19 AM CDT Isaak Ibrahim MD LAB - URINALYSIS ORD ERABLES [facility] [address] [place] [address], [facility] [phone] * XR FEMUR LEFT 2VW (03/29/2024 12:13 AM CDT) Only the most recent of3 resultswithin the time period is included. Anatomical Region Laterality Modality Lower Extremity Radiographic Юлия ging 03/29/2024 1:16 AM CDT Narrative 03/29/2024 11:37 AM CDT PROCEDURE: XR FEMUR LEFT 2VW, DATE/TIME OF EXAM: 03/29/2024 12:13 AM, LOCATION [facility] INDICATION: R06.02: Shortness of [...] DATE/TIME OF EXAM: 03/29/2024 12:13 AM, LOCATION [facility] INDICATION: R06.02: Shortness of [...] head. > Dictated by Chad Francisco DO (director of radiology). I, Ramiro Naranjo MD have personally reviewed and interpreted this examination/study. > Interpreting Provider: Ramiro Naranjo MD on 03/29/2024 2:30 AM Narrative 03/29/2024 2:30 AM CDT PROCEDURE: CT ABDOMEN PELVIS W CONTRAST, DATE/TIME OF EXAM: 03/29/2024 12:00 AM, LOCATION [facility] INDICATION: R06.02: Shortness of [...] DATE/TIME OF EXAM: 03/29/2024 12:00 AM, LOCATION [facility] INDICATION: R06.02: Shortness of [...] femoralhead. > Dictated by Chad Francisco DO (director of radiology). I, Ramiro Naranjo MD have personally reviewed and interpreted this examination/study. > Interpreting Provider: Ramiro Naranjo MD on 03/29/2024 2:30 AM Isaak Ibrahim MD CT ORDERABLES * PT-INR [facility] (03/28/2024 7:13 PM CDT) Only the most recent of4 resultswithin the time period is included. PT 13.8 12.1 - 14.8 Seconds 03/28/2024 7:[address] [facility] INR 1.1 See Comment 03/28/2024 7:44 PM T [facility] Comment:The suggested therap eutic range for standard coumadin (warfarin) therapy is an INR of 2.0-3.0. For high-risk patients (Mechanical Mitral Valve Prosthesis, etc.), the suggested prophylactic therapeutic range is an INR of 2.5-3.5. Blood BLOOD SPECIMEN / Unknown Venipuncture / Unknown 03/28/2024 7:13 PM CDT 03/28/2024 7:16 PM CDT Linda DIAZ LAB - COAGUL ATION ORDERABLES Performing Organization Address [facility]/ZIP Co de Phone Number [address] [phone], [facility] [phone] * (ABNORMAL) DIFFERENTIAL MANUAL (03/28/2024 7:13 PM CDT) Neutrophil % 72 41 - 74 % 03/28/2024 8:38 PM CDT [facility] Lymphocyte % 16(L) 17 - 47 % 03/28/2024 8:38 PM CDT [facility] Monocyte % 12(H) 3 - 11 % 03/28/2024 8:38 PM CDT [facility] Neutrophil Absolute 9.79(H) 1.60 - 7.50 x10E9/L 03/28/2024 8:38 PM CDT [facility] Lymphocyte Absolute 2.18 1.00 - 4.40 x10E9/L 03/28/2024 8:38 PM CDT [facility] Monocyte Absolute 1.63(H) 0.15 - 1.00 x10E9/L 03/28/2024 8:38 PM CDT [facility] RBC Morphology NORMAL 03/28/2024 8:38 PM CDT [facility] Large Platelets PRESENT(A) (none) 8:38 PM CDT [facility] Blood BLOOD SPECIMEN / Unknown Venipuncture / Unknown 03/28/2024 7:13 PM CDT 03/28/2024 7:18 PM CDT Linda DIAZ LAB - HEMATO LOGY ORDERABLES Performing Organization Address [facility]/State/ZIP Co de Phone Number [address] [address], [place] [phone] * (ABNORMAL) CBC W AUTO DIFFERENTIAL (03/28/2024 7:13 PM CDT) Only the most recent of2 resultswithin the time period is included. WBC 13.6(H) 4.0 - 10.7 x10E9/L 03/28/2024 8:38 PM [facility] RBC Count 4.92 4.30 - 5.80 x10E12/L 03/28/2024 8:38 PM [facility] Hemoglobin 15.7 13.3 - 17.5 g/dL 03/28/2024 8:38 PM [facility] Hematocrit 43.9 38.7 - 51.1 % 03/28/2024 8:38 PM [facility] MCV 89.2 80.0 - 98.0 fL 03/28/2024 8:38 PM [facility] MCH 31.9 26.7 - 33.6 pg 03/28/2024 8:38 PM [facility] MCHC 35.8 31.7 - 36.3 g/dL 03/28/2024 8:38 PM [facility] RDW-CV 11.9 11.3 - 14.8 % 03/28/2024 8:38 PM [facility] Platelet Count 175 150 - 420 x10E9/L 03/28/2024 8:38 PM [facility] MPV 9.7 7.8 - 11.4 fL 03/28/2024 8:38 PM [facility] Blood BLOOD SPECIMEN / Unknown Venipuncture / Unknown 03/28/2024 7:13 PM CDT 03/28/2024 7:18 PM CDT Linda Leslie SINGLE NEEDLE TUFTING MACHINE OPERATOR-CO FOUNDER LAB - HEMATO LOGY ORDERABLES [address] [address], [facility] [phone] * AMMONIA (03/28/2024 7:13 PM CDT) Ammonia 37 <=72 umol/L 03/28/2024 7:40 PM T [facility] Blood BLOOD SPECIMEN / Unknown Venipuncture / Unknown 03/28/2024 7:13 PM CDT 03/28/2024 7:16 PM CDT Linda Leslie SINGLE NEEDLE TUFTING MACHINE OPERATOR-CO FOUNDER LAB - CHEMIS TRY ORDERABLES [facility] [address] [place] [address], [facility] [phone] * XR CHEST 1VW PORTABLE (03/28/2024 7:10 PM CDT) Anatomical Region Laterality Modality Chest Radiographic Юлия ging 03/28/2024 9:11 PM CDT Narrative 03/29/2024 6:21 AM CDT PROCEDURE: XR CHEST 1VW PORTABLE, DATE/TIME OF EXAM: 03/28/2024 7:14 PM, LOCATION [facility] INDICATION: R06.02: Shortness of breath ADDITIONAL CLINICAL INFORMATION: Ordering Provider Reason For Exam: r/o effusion COMPARISON: None. FINDINGS/IMPRESSION: Mild bibasilar linear opacities, likely atelectasis. Superimposed aspiration or infection cannot be excluded. There is no pleural effusion or pneumothorax. The cardiomediastinal silhouette is normal. The visible bony thorax is intact. > Dictated by Lukas Francisco DO (Document Specialist) Ludin Anton MD have personally reviewed and interpreted this examination/study. > Interpreting Provider: Ludin Nuno MD on 03/29/2024 6:21 AM Procedure Note Ludin Nuno MD - 03/29/2024 PROCEDURE: XR CHEST 1VW PORTABLE, DATE/TIME OF EXAM: 03/28/2024 7:14 PM, LOCATION [facility] INDICATION: R06.02: Shortness of breath ADDITIONAL CLINICAL INFORMATION: Ordering Provider Reason For Exam: r/o effusion COMPARISON: None. FINDINGS/IMPRESSION: Mild bibasilar linear opacities, likely atelectasis. Superimposed aspiration or infection cannot be excluded. There is no pleural effusionor pneumothorax. The cardiomediastinal silhouette is normal. The visiblebony thorax is intact. > Dictated by Lukas Francisco DO (Document Specialist) Ludin Anton MD have personally reviewed and interpreted this examination/study. > Interpreting Provider: Ludin Nuno MD on 03/29/2024 6:21 AM Linda Leslie SINGLE NEEDLE TUFTING MACHINE OPERATOR-CO FOUNDER DIAGNOSTIC I MAGING ORDERABLES * NJ DRAIN/INJECT LARGE JOINT/BURSA (02/16/2024 10:34 AM CDT) Toño Chen MD - 02/16/2024 10:34 AM CDT Toño Cabrera MD 02/16/2024 11:34 AM Orthopaedic Surgery Procedure Note Lukas Diaz [id number] Diagnosis: Left knee pain Procedure: Injection of [...] Cabrera MD PROCEDURE/MINOR TRUDI GICAL ORDERABLES * NJ DRAIN/INJECT LARGE JOINT/BURSA (02/16/2024 10:34 AM CDT) Toño Chen MD - 02/16/2024 10:34 AM CDT Toño Cabrrea MD 02/16/2024 11:34 AM Orthopaedic Surgery Procedure Note Lukas Diaz [id number] Diagnosis: Right knee pain Procedure: Injection of [...] Cabrera MD PROCEDURE/MINOR TRUDI GICAL ORDERABLES * NJ DRAIN/INJECT LARGE JOINT/BURSA (11/17/2023 10:31 AM DIRECTOR OF GUIDANCE) Narrative Toño Cabrera MD - 11/17/2023 10:31 AM DIRECTOR OF GUIDANCE Toño Cabrera MD 11/17/2023 10:31 AM Orthopaedic Surgery Procedure Note Lukas Diaz [id number] Diagnosis: Left knee pain Procedure: Injection of [...] months. Report dictated by Hany Cornelius MD, (director of radiology). I, Bina Perez MD have personally reviewed and interpreted this examination/study. > Interpreting Provider: Bina Perez MD on 08/25/2023 10:18 AM Narrative 08/25/2023 10:18 AM CDT PROCEDURE: US ABDOMEN LIMITED, DATE/TIME OF EXAM: 08/25/2023 7:53 AM, LOCATION [facility] INDICATION: K74.60: Cirrhosis of [...] DATE/TIME OF EXAM: 08/25/2023 7:53 AM, LOCATION [facility] INDICATION: K74.60: Cirrhosis of [...] months. Report dictated by Hany Cornelius MD, (director of radiology). I, Bina Perez MD have personally reviewed and interpreted this examination/study. > Interpreting Provider: Bina Perez MD on 08/25/2023 10:18 AM Klarissa Rutledge SINGLE NEEDLE TUFTING MACHINE OPERATOR-CO FOUNDER US ORDERABL ES * CBC W DIFF (EXTERNAL RESULT ENTRY) (08/12/2023 6:18 AM CDT) Only the most recent of6 resultswithin the time period is included. WBC (EXTERNAL RESULT) 9.2 10^3/ul [facility] Hemoglobin (EXTERNAL RESULT) 14.9 g/dl [facility] Hematocrit (EXTERNAL RESULT) 44.6 % [facility] Platelets (EXTERNAL RESULT) 179 10^3/ul [facility] Neutrophil Absolute (EXTERNAL RESULT) [facility] Blood BLOOD SPECIMEN / Unknown 08/12/2023 6:18 AM CDT Historical Provider LAB - HEMATOLOGY ORDERABLES [facility] [address] [place] [address], [facility] [phone] * VITAMIN D HYDROXY (EXTERNAL RESULT) (08/12/2023 6:18 AM CDT) Vitamin D Hydroxy (External Result) 75 [facility] Blood 08/12/2023 6:18 AM CDT Historical Provider LAB - CHEMISTRY O RDERABLES [facility] [address] [place] [address], [facility] [phone] * COMP MET PANEL (EXTERNAL RESULT ENTRY) (08/12/2023 6:18 AM CDT) Only the most recent of5 resultswithin the time period is included. Glucose (EXTERNAL) 87 mg/dL [facility] Sodium (EXTERNAL RESULT) 142 mmol/L [facility] Potassium (EXTERNAL RESULT) 4.3 mmol/L [facility] Chloride (EXTERNAL RESULT) 104 mmol/L [facility] CO2 (EXTERNAL) 29 mmol/L [facility] Calcium (EXTERNAL RESULT) 9.0 mg/dL [facility] Anion Gap (EXTERNAL RESULT) [facility] BUN (EXTERNAL RESULT) 12 mg/dL [facility] Creatinine (EXTERNAL RESULT) 0.8 mg/dl [facility] Alkaline Phosphatase (EXTERNAL RESULT) 70 U/L [facility] ALT (EXTERNAL RESULT) 20 U/L [facility] AST (EXTERNAL RESULT) 15 U/L [facility] Protein Total (EXTERNAL RESULT) 7.1 gm/dL [facility] Albumin (EXTERNAL RESULT) 4.0 gm/dL [facility] Bilirubin Total (EXTERNAL RESULT) 0.5 mg/dL [facility] eGFR MDRD (EXTERNAL RESULT) 80 mL/min/1.7 3m2 [facility] eGFR (EXTERNAL) 97 mL/min/1.7 2 [facility] Blood BLOOD SPECIMEN / Unknown 08/12/2023 6:18 AM CDT Historical Provider LAB - CHEMISTRY O CAITLIN [facility] [address] [place] [address], [facility] [phone] * NJ DRAIN/INJECT LARGE JOINT/BURSA (06/29/2023 9:27 AM CDT) Narrative Toño Cabrera MD - 06/29/2023 9:27 AM CDT Toño Cabrera MD 06/29/2023 3:12 PM Orthopaedic Surgery Procedure Note Lukas Diaz [id number] Diagnosis: Left knee pain Procedure: Injection of [...] - CHEMISTRY O RDERABLES OTHER LAB * NJ DRAIN/INJECT LARGE JOINT/BURSA (02/16/2023 12:00 PM CDT) Narrative Toño Cabrera MD - 02/16/2023 12:00 PM CDT Toño Cabrera MD 02/18/2023 3:47 PM Orthopaedic Surgery Procedure Note Lukas Diaz [id number] Diagnosis: Left knee pain Procedure: Injection of [...] Cabrera MD PROCEDURE/MINOR TRUDI GICAL ORDERABLES * NJ DRAIN/INJECT LARGE JOINT/BURSA (08/11/2022 10:08 AM CDT) [...] DATE/TIME OF EXAM: 08/11/2022 9:22 AM, LOCATION [facility] INDICATION: M25.562: Pain in left [...] DATE/TIME OF EXAM: 29:22 AM, LOCATION [facility] INDICATION: M25.562: Pain in left [...] non-lee portions. 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 All rights reserved. The codes documented in this report are preliminary and upon carbon sequestration plant manager review may be revised to meet current compliance requirements. Amos Pabon, 06/18/2022 9:47:50 AM Note Initiated On: 06/18/2022 9:04 AM Number of Addenda: [address] [phone] [facility] 06/18/2022 9:04 AM CDT Amos Pabon MD [facility] PROCEDURE [facility]AB [facility] * PATHOLOGY TISSUE (03/05/2022 9:47 AM CDT) Case Report Surgical Pathology Report Case: [id number] Authorizing Provider: Amos Pabon MD Collected: 03/05/2022 09:47 AM Ordering Location: [facility] ENDOSCOPY Received: 03/05/2022 11:35 AM Pathologist: Елена Stubbs MD Specimen: Gastric, . gastric bx R/O H pylori 03/06/2022 12:19 PM [facility] Final Diagnosis Stomach, biopsy (A): - Mild reactive changes and proton pump inhibitor effect - No active inflammation or H. pylori organisms (H&E examination) 03/06/2022 12:19 PM [facility] Microscopic Description and Comment Microscopic examination substantiates the final diagnosis. 03/06/2022 12:19 PM [facility] Clinical History The patient is a 36-year-old man here for 2nd degree variceal eradication. Operative procedure/findings: EGD - few non-bleeding superficial gastric ulcers in antrum, biopsied. 03/06/2022 12:19 PM [facility] Gross Description The requisition and specimen(s) are identified with the patient's name Lukas Diaz. Received in formalin, specimen A , are 4 pink-briscoe tissues, 0.1-0.7 cm in greatest dimension and 1.3 x 0.2 x 0.2 cm in aggregate, submitted in toto in cassette A1. DF 03/06/2022 12:19 PM [facility] Disclaimer The performance characteristics of all immunohistochemical and indirect immunofluorescence stains (if any) cited in this report were determined by the Histopathology Laboratory of [facility]. Some of these tests were [...] the attending (teaching) pathologist. 03/06/2022 12:19 PM [facility] Embedded Images 03/06/2022 12:19 PM [facility] Biopsy, NOS GASTRIC CONTENTS SPECIMEN / Unknown 03/05/2022 9:47 AM CDT 03/05/2022 11:35 AM CDT Comment:Pre-op diagnosis: Other cirrhosis of liver [K74.69] Amos Pabon MD LAB - PATHOLOGY/CYTO LOGY ORDERABLES [facility] [address] [place] [address], [facility] [phone] * EGD (03/05/2022 9:23 AM CDT) Report [...] entire procedure. Procedure Code(s): --- Professional --- 43701, Esophagogastroduode noscopy, flexible, transoral; with biopsy, single or multiple Diagnosis Code(s): --- Professional --- K21.0, Gastro-esophageal reflux disease with esophagitis K22.8, Other specified diseases of esophagus K25.9, Gastric ulcer, unspecified as acute or chronic, without hemorrhage or perforation I85.00, Esophageal varices without bleeding CPT copyright 2019 [employer]. All rights reserved. The codes documented in this report are preliminary and upon carbon sequestration plant manager review may be revised to meet current compliance requirements. Amos Pabon, 03/05/2022 9:59:19 AM Note Initiated On: 03/05/2022 9:23 AM Number of Addenda: [address] [phone] [facility] ILL 03/05/2022 9:23 AM CDT Amos Pabon MD GI PROCEDURE ORDERAB LES Performing Organization Address [facility] Co de Phone Number [facility] * ALPHA FETOPROTEIN BLOOD TUMOR MARKER (02/16/2022 2:26 PM CDT) Only the most recent of2 resultswithin the time period is included. Alpha-Fetoprote in Tumor Marker 2.9 <=8.3 ng/mL 02/16/2022 4:09 PM CDT [facility] Comment: AFP values will vary depending on testing procedure used. Results are not comparable across different methods. AFP values obtained by [facility] using an Jenkins Alinity Immunoassay. Blood BLOOD SPECIMEN / Unknown Lab Venipuncture / Unknown 02/16/2022 2:26 PM CDT 02/16/2022 3:24 PM CDT Amos Pabon MD LAB - CHEMISTRY ORDE NIK Performing Organization Address [facility]/ZIP Co de Phone Number [address] [address], [facility] [phone] * (ABNORMAL) BASIC METABOLIC PANEL (CALCIUM TOTAL) (02/16/2022 2:26 PM CDT) Only the most recent of2 resultswithin the time period is included. [facility] BUN 9 7 - 26 mg/dL 02/16/2022 3:50 PM [facility] Creatinine 0.76 0.71 - 1.16 mg/dL 02/16/2022 3:50 PM [facility] Sodium 139 136 - 145 mmol/L 02/16/2022 3:50 PM [facility] Potassium 3.7 3.5 - 4.5 mmol/L 02/16/2022 3:50 PM [facility] Chloride 98 98 - 107 mmol/L 02/16/2022 3:50 PM [facility] CO2 31(H) 22 - 29 mmol/L 02/16/2022 3:50 PM [facility] Glucose 70 70 - 115 mg/dL 02/16/2022 3:50 PM [facility] Calcium 10.4(H) 8.4 - 10.2 mg/dL 02/16/2022 3:50 PM [facility] Anion Gap 14 8 - 18 [...] Pabon MD LAB - CHEMISTRY KURT ZARAGOZA [facility] Organization Address City/State/ZIP Co de Phone Number [facility] [address] [place] [address], [facility] [phone] * (ABNORMAL) HEPATIC FUNCTION PANEL (02/16/2022 2:26 PM CDT) Only the most recent of2 resultswithin the time period is included. Protein Total 8.9(H) 6.0 - 8.3 g/dL 022 3:[address] [facility] Albumin 4.0 3.4 - 5.0 g/dL 02/16/2022 3:[address] [facility] Bilirubin Total 0.5 0.2 - 1.2 mg/dL 01/24 3:50 PM T [facility] Bilirubin Conjugated 0.3 0.1 - 0.5 mg/dL 02/16/2022 3:50 PM T [facility] Bilirubin Unconjugated 0.2 Unconjugated Bilirubin is a calculated value: Reference ranges have not been established. mg/dL 02/16/2022 3:50 PM CDT [facility] Alkaline Phosphatase 130 40 - 150 U/L 02/16/2022 3:50 PM T [facility] ALT 20 5 - 55 U/L 02/16/2022 3:50 PM T [facility] AST 24 5 - 34 U/L 02/16/2022 3:50 PM T [facility] Albumin/Globulin Ratio 0.8(L) 1.1 - 2.3 02/16/2022 3:50 PM [facility] Blood BLOOD SPECIMEN / Unknown Lab Venipuncture / Unknown 02/16/2022 2:26 PM CDT 02/16/2022 3:20 PM CDT Amos Pabon MD LAB - CHEMISTRY KURT ZARAGOZA [facility] Organization Address City/[facility] Co de Phone Number [address] [address], [facility] [phone] * (ABNORMAL) VITAMIN D 25-HYDROXY (12/19/2021 1:35 AM DIRECTOR OF GUIDANCE) Vitamin D, 25 Hydroxy 7.0(L) 30.0 - 80.0 ng/mL 12/19/2021 2:[address] [facility] Comment: The recommendations for 25-Hydroxy [...] Lab Venipuncture / Unknown 12/19/2021 1:35 AM DIRECTOR OF GUIDANCE 12/19/2021 1:46 AM DIRECTOR OF GUIDANCE Anastasia Chowdhury SINGLE NEEDLE TUFTING MACHINE OPERATOR-INSPECTOR OPEN DIE LAB - CHEMISTR Y ORDERABLES [facility] [address] [place] [address], [facility] [phone] * CT HIP LEFT WO CONTRAST (12/18/2021 6:44 AM DIRECTOR OF GUIDANCE) Anatomical Region Laterality Modality Lower Extremity Computed Tomogra phy 12/18/2021 6:48 AM DIRECTOR OF GUIDANCE Impressions 12/18/2021 8:00 AM DIRECTOR OF GUIDANCE Impression: Displaced left femoral neck fracture, age-indeterminate. Cannot exclude a small posterior-superior acetabular wall fracture. See comments above. Report drafted by Shaun Marie (resident) IDr. VALENTE MD have personally reviewed and interpreted this examination/study. This report was electronically signed by VALENTE MCDUFFIE MD on 12/18/2021 8:00 AM . Narrative 12/18/2021 8:00 AM DIRECTOR OF GUIDANCE Procedure Information DATE: 12/18/2021 6:45 AM EXAMINATION: [...] URINE DRUG SCREEN IMMUNOASSAY (12/18/2021 4:57 AM DIRECTOR OF GUIDANCE) [facility] Amphetamines Screen Urine Positive(A) Negative : < 1000 ng/mL 12/18/2021 5:[address] [facility] Comment: Positive urine amphetamine screening results should be confirmed by another generally accepted non-immunological method such as gas chromatography or mass spectrometry. Barbiturates Screen Urine Negative Negative : < 200 ng/mL 12/18/2021 5:21 AM [facility] Benzodiazepine Screen Urine Negative Negative : < 200 ng/mL 12/18/2021 5:21 AM [facility] Opiates Urine Positive(A) Negative : < 300 ng/mL 12/18/2021 5:21 AM [facility] Comment:Positive urine opiat e screening results should be confirmed by another generally accepted non-immunological method such as gas chromatography or mass spectrometry. Cocaine Metabolites Urine Negative Negative : < 300 ng/mL 12/18/2021 5:21 AM [facility] Phencyclidine Screen Urine Negative Negative : < 25 ng/ml 12/18/2021 5:21 AM [facility] Cannabinoids Screen Urine Positive(A) Negative : <50 ng/mL 12/18/2021 5:21 AM [facility] Comment:Positive urine canna binoids (THC) screening results should be confirmed by another generally accepted non-immunological method such as gas chromatography or mass spectrometry. Methadone Screen Urine Negative Negative : < 300 ng/mL 12/18/2021 5:21 AM [facility] Fentanyl Screen Urine Positive(A) Negative : <1.0 ng/mL 12/18/2021 5:21 AM [facility] Comment:Positive urine fenta nyl screening results should be confirmed by another generally accepted non-immunological method such as gas chromatography or mass spectrometry. Urine URINE / Unknown Collection / Unknown 12/18/2021 4:57 AM [facility] 12/18/2021 4:59 AM [facility] - 12/18/2021 5:21 AM [facility] The Urine Toxicology Screening Panel does not screen for Propoxyphene, Meprobamate, Carisoprodol, Trazodone, yyai-btr-kblsdyb medications and/or volatiles (Acetone, Isopropanol, Methanol or Ethylene Glycol). Ethanol, Salicylate, Acetaminophen, Tricyclic Antidepressants and several therapeutic drugs may be individually assayed in serum or plasma specimen. Toxicology testing by the [facility] is an aid to medical diagnosis and treatment of patients. No documented chain of custody was maintained. Results are intended to be used for clinical purposes only. Lima Thompson MD LAB - URINE CHEMISTR Y ORDERABLES [facility] [address] [place] [address], [facility] [phone] * BLOOD TYPE VERIFICATION (12/18/2021 4:44 AM DIRECTOR OF GUIDANCE) ABO Rh B POS 12/18/2021 5:1 [address] [facility] Blood Bank BLOOD SPECIMEN / Unknown Lab Venipuncture / Unknown 12/18/2021 4:44 AM DIRECTOR OF GUIDANCE 12/18/2021 4:51 AM DIRECTOR OF GUIDANCE Lima Thompson MD LAB - BLOOD BANK ORD ERABLES [facility] [address] [place] [address], [facility] [phone] * SARS-COV-2 (COVID-19)+INFLU A+B PCR RAPID (12/18/2021 4:17 AM DIRECTOR OF GUIDANCE) COVID-19 PCR Not detected Not detected 12/18/19 6:44 AM [facility] Influenza A Rapid MISAEL Not Detected Not Detected 12/18/2021 6:44 AM [facility] Influenza B MISAEL Rapid Not Detected Not Detected 12/18/2021 6:44 AM [facility] Microbiology SPECIMEN FROM NASOPHARYNGEAL STRUCTURE / Unknown Collection / Unknown 12/18/2021 4:17 AM DIRECTOR OF GUIDANCE 12/18/2021 6:15 AM DIRECTOR OF GUIDANCE Narrative [facility] - 12/18/2021 6:44 AM DIRECTOR OF GUIDANCE Influenza assay performed by [employer]. [...] acid amplification assay performance was validated by [facility]. This test has been authorized by the [...] - MICROBIOLOGY O RDERABLES Performing Organization Address City/[facility]/ZIP Co de Phone Number [facility] [address] [place] [address], [facility] [phone] * TYPE + SCREEN PANEL (12/18/2021 4:17 AM DIRECTOR OF GUIDANCE) Antibody Screen NEG 5:[address] [facility] ABO Rh B POS 12/18/2021 5:14 [address] [facility] Blood Bank BLOOD SPECIMEN / Unknown Venipuncture / Unknown 12/18/2021 4:17 AM DIRECTOR OF GUIDANCE 12/18/2021 4:29 AM DIRECTOR OF GUIDANCE Lima Thompson MD LAB - BLOOD BANK ORD ERABLES Performing Organization Address [facility]/ZIP Co de Phone Number [facility] [address] [place] [address], [place] [phone] * XR PELVIS W LEFT HIP 2VW (12/17/2021 11:05 PM DIRECTOR OF GUIDANCE) Anatomical Region Laterality Modality Pelvis Radiographic Юлия ging 12/17/2021 11:0 6 PM DIRECTOR OF GUIDANCE Impressions 12/18/2021 10:05 AM DIRECTOR OF GUIDANCE IMPRESSION: Superolaterally displaced fracture of the left femoral neck. Report dictated by Shama Landry M.D. (director of radiology). IDr. AOL, MD, FRCR have personally reviewed and interpreted this examination/study. This report was electronically signed by ALO VAZQUEZ MD, FRCR on 12/18/2021 10:05 AM . Narrative 12/18/2021 10:05 AM DIRECTOR OF GUIDANCE EXAMINATION: XR PELVIS W LEFT HIP 2VW [...] neck. Report dictated by Shama Landry M.D. (director of radiology). IDr. ALO MD, FRCR have personally reviewedand interpreted this examination/study. This report was electronically signed by ALO VAZQUEZ MD, FRCR on 12/18/2021 10:05 AM . Lima Thompson MD DIAGNOSTIC IMAGING O RDERABLES * TIFFANY BLOOD SCREEN W/REFLEX TITER (10/01/2021 11:38 AM DIRECTOR OF GUIDANCE) TIFFANY IgG None Detected None Detected 10/04/2021 12:34 AM DIRECTOR OF GUIDANCE [facility] [employer] ([facility]) Comment: If suspicion of connective tissue disease is strong and TIFFANY EIA is negative, consider testing for TIFFANY by IFA ([id number]). INTERPRETIVE INFORMATION: Anti-Nuclear Antibodies (TIFFANY), IgG by SAVANNAH Antinuclear Antibodies (TIFFANY), IgG by SAVANNAH: TIFFANY specimens are screened using enzyme-linked immunosorbent assay (SAVANNAH) methodology. All SAVANNAH results reported as Detected are further tested by indirect fluorescent assay (IFA) using HEp-2 substrate with an IgG-specific conjugate. The TIFFANY SAVANNAH screen is designed to detect antibodies against dsDNA, histones, SS-A (Ro), SS-B (La), Clayton, Clayton/PROPAGATION WORKER, Scl-70, Nuris-1, centromeric proteins, other antigens extracted from the HEp-2 cell nucleus. TIFFANY SAVANNAH assays have been reported to have lower sensitivities than TIFFANY IFA for systemic autoimmune rheumatic diseases (SARD). Negative results do not necessarily rule out SARD. Performed By: [employer] [address] [address] Telephone Lineworker: Ivanna Ballard MD Blood BLOOD SPECIMEN / Unknown Lab Venipuncture / Unknown 10/01/2021 11:38 AM DIRECTOR OF GUIDANCE 10/01/2021 11:45 AM DIRECTOR OF GUIDANCE Amos Pabon MD LAB - CHEMISTRY KURT ZARAGOZA [facility] [address] [place] [address], [facility] * HDOZW-9-TDTLFGEEZSW BLOOD (10/01/2021 11:38 AM DIRECTOR OF GUIDANCE) Vwegw-9-Rntjob ypsin 159 90 - 200 mg/dL 10/01/2021 12:55 PM DIRECTOR OF GUIDANCE [facility] Blood BLOOD SPECIMEN / Unknown Lab Venipuncture / Unknown 10/01/2021 11:38 AM DIRECTOR OF GUIDANCE 10/01/2021 11:46 AM DIRECTOR OF GUIDANCE Amos Pabon MD LAB - CHEMISTRY KURT [place]ARAG[place] [address] [place] [address], [facility] [phone] * (ABNORMAL) IRON BLOOD (10/01/2021 11:38 AM DIRECTOR OF GUIDANCE) Iron 17(L) 50 - 175 ug/dL 10/01/2021 12:55 PM DIRECTOR OF GUIDANCE [facility] Blood BLOOD SPECIMEN / Unknown Lab Venipuncture / Unknown 10/01/2021 11:38 AM DIRECTOR OF GUIDANCE 10/01/2021 11:46 AM DIRECTOR OF GUIDANCE Amos Pabon MD LAB - CHEMISTRY KURT ZARAGOZA Performing Organization Address City/[facility]/ZIP Co de Phone Number [address] [address], [facility] [phone] * (ABNORMAL) HEPATITIS B SURFACE ANTIBODY (10/01/2021 11:38 AM DIRECTOR OF GUIDANCE) Hepatitis B Virus Surface Antibody Reactive( A) Non-react young 10/01/2021 1:14 PM [facility] Comment: > 12 mIU/mL Hepatitis B surface Antibody (HBsAb). Reactive for HBsAb - individual is considered immune to Hepatitis B Virus infection. Hepatitis B Surface Antibody Quantitative 50.9(H) <8.0 mIU/mL 10/01/2021 1:14 PM [facility] Comment: Hepatitis B Surface Antibody Numeric Result Interpretation: Nonreactive: <8.0 mIU/mL Indeterminate: 8.0 - 12.0 mIU/mL Reactive: >12.0 mIU/mL Blood BLOOD SPECIMEN / Unknown Lab Venipuncture / Unknown 10/01/2021 11:38 AM DIRECTOR OF GUIDANCE 10/01/2021 11:46 AM DIRECTOR OF GUIDANCE Amos Pabon MD LAB - CHEMISTRY KURT ZARAGOZA Performing Organization Address City/[facility]/ZIP Co de Phone Number [address] [address], [facility] [phone] * HEPATITIS B CORE ANTIBODY (10/01/2021 11:38 AM DIRECTOR OF GUIDANCE) HBc Antibody Total Non-reacti ve Non-reacti ve 10/01/2021 1:14 PM [facility] Blood BLOOD SPECIMEN / Unknown Lab Venipuncture / Unknown 10/01/2021 11:38 AM DIRECTOR OF GUIDANCE 10/01/2021 11:46 AM DIRECTOR OF GUIDANCE Amos Pabon MD LAB - CHEMISTRY ORDE RABLES Performing Organization Address City/[facility]/ZIP Co de Phone Number [address] [address], [facility] [phone] * HEPATITIS B SURFACE ANTIGEN W RFLX CONFIRMATION (10/01/2021 11:38 AM DIRECTOR OF GUIDANCE) Pathologist [facility] Hepatitis B Virus Surface Antigen Non-reacti ve Non-reacti ve 10/01/2021 1:14 PM DIRECTOR OF GUIDANCE [facility] Blood BLOOD SPECIMEN / Unknown Lab Venipuncture / Unknown 10/01/2021 11:38 AM DIRECTOR OF GUIDANCE 10/01/2021 11:46 AM DIRECTOR OF GUIDANCE Amos Pabon MD LAB - CHEMISTRY KURT ZARAGOZA Performing Organization Address [facility]/ZIP Co de Phone Number [address] [address], [facility] [phone] * (ABNORMAL) IGG BLOOD (10/01/2021 11:38 AM DIRECTOR OF GUIDANCE) Pathologist [facility] IgG 2,513(H) 767-1,590 mg/dL 10/01/2021 12:55 PM DIRECTOR OF GUIDANCE [facility] Blood BLOOD SPECIMEN / Unknown Lab Venipuncture / Unknown 10/01/2021 11:38 AM DIRECTOR OF GUIDANCE 10/01/2021 11:46 AM DIRECTOR OF GUIDANCE Amos Pabon MD LAB - CHEMISTRY KURT ZARAGOZA Performing Organization Address City/[facility]/ZIP Co de Phone Number [address] [address], [place] [phone] * HEPATITIS C ANTIBODY (10/01/2021 11:38 AM DIRECTOR OF GUIDANCE) Pathologist [facility] Hepatitis C Antibody Non-react young Non-reac tive 10/01/2021 1:14 PM DIRECTOR OF GUIDANCE [facility] Comment:Hepatitis C Antibody screen indicates no [...] Venipuncture / Unknown 10/01/2021 11:38 AM DIRECTOR OF GUIDANCE 10/01/2021 11:46 AM DIRECTOR OF GUIDANCE Amos Pabon MD LAB - CHEMISTRY KURT ZARAGOZA [facility] [address] [place] [address], [place] [phone] * (ABNORMAL) HEPATITIS A ANTIBODY (10/01/2021 11:38 AM DIRECTOR OF GUIDANCE) Hepatitis A Virus Antibody Total Positive( A) Negative 10/03/2021 5:38 PM DIRECTOR OF GUIDANCE [facility] Comment: The positive anti-HAV is consistent with recent or remote Hepatitis A infection or antibody response to HAV vaccination. False positive anti-HAV can occur. Performed by [employer], [address] [place] [address] [email or web address], Ivanna Ballard MD, Lab. Director Blood BLOOD SPECIMEN / Unknown Lab Venipuncture / Unknown 10/01/2021 11:38 AM DIRECTOR OF GUIDANCE 10/01/2021 11:45 AM DIRECTOR OF GUIDANCE Amos Pabon MD LAB - CHEMISTRY KURT ZARAGOZA Performing Organization Address City/[facility]/ZIP Co de Phone Number [facility] [address] [place], [place] [address] [place] [address] * (ABNORMAL) FERRITIN (10/01/2021 11:38 AM DIRECTOR OF GUIDANCE) Ferritin 19(L) 22 - 275 ng/mL 10/01/2021 1:14 PM DIRECTOR OF GUIDANCE [facility] Blood BLOOD SPECIMEN / Unknown Lab Venipuncture / Unknown 10/01/2021 11:38 AM DIRECTOR OF GUIDANCE 10/01/2021 11:46 AM DIRECTOR OF GUIDANCE Amos Pabon MD LAB - CHEMISTRY KURT ZARAGOZA [facility] [address] [place] [address], [place] [phone] Care Teams Crawler Tractor Operator Relationship Specialty Start Date End Date Teodoro Lopez PCP - General 05/17/24 Eric Oconnell MD Hospitalist 10/10/21
--- OUTSIDE RECORDS SUMMARY | 2024-12-03 11:48 | XMS_ITS | Referral Summary ---
Author Organization [facility] [employer] Address [address] [place] [address] Care Team Providers Care Sales Representative [employer]' [employer]arel Name Role Phone Eric Oconnell MD Unavailable [phone] Teodoro Lopez Primary Care Provider Unavailabl e Source Comments [facility],non-owned Affiliates and Associated Physician Practices is amultiple site organization consisting of ambulatory clinics and hospital sitesin [place], [place], [place] and [place]. This disclosure is being madepursuant to the Care Everywhere program and may not contain all information available regarding this patient. Last updated 18.[facility] [employer] Allergies Active Allergy Reactions Criticality Noted Date [...] affected area as needed Active HYDROcodone-acetamin ophen (Boone) 5-325 MG tablet Take 1 (one) tablet [...] Info) Description 01/08/2025 8:00 AM CDT Appointment [facility] [address] [place] [address] 01/08/2025 9:00 AM CDT Office Visit [facility] - GI [address] [facility] [facility], [place] [phone] Amos Pabon MD [address] [place] [address] [place] [address] Goals Goal Patient Goal Type Associated Problems [...] HEPATITIS C ANTIBODY Routine 10/01/2021 11:38 AM PROOF COINS INSPECTOR Cirrhosis of liver with ascites, unspecified hepatic cirrhosis type (HCC) from Last 3 Months or Most Recently Relevant to Health Maintenance Results * (ABNORMAL) COMPREHENSIVE METABOLIC PANEL (03/29/2024 4:30 AM CDT) BUN 10 7 - 26 mg/dL 03/29/2024 5:09 AM [facility] Creatinine 0.84 0.71 - 1.16 mg/dL 03/29/2024 5:09 AM [facility] Sodium 135(L) 136 - 145 mmol/L 03/29/2024 5:09 AM [facility] Potassium 3.8 3.5 - 4.5 mmol/L 03/29/2024 5:09 AM [facility] Chloride 105 98 - 107 mmol/L 03/29/2024 5:09 AM [facility] CO2 22 22 - 29 mmol/L 03/29/2024 5:09 AM [facility] Glucose 87 70 - 115 mg/dL 03/29/2024 5:09 AM [facility] Calcium 9.6 8.4 - 10.2 mg/dL 03/29/2024 5:09 AM [facility] Protein Total 7.6 6.0 - 8.3 g/dL 03/29/2024 5:09 AM [facility] Albumin 3.8 3.4 - 5.0 g/dL 03/29/2024 5:09 AM [facility] Bilirubin Total 0.9 0.2 - 1.2 [...] Isaak Ibrahim MD LAB - CHEMISTRY KURT [facility] Organization Address City/State/ZIP Co de Phone Number [facility] [address] [place] [address], [facility] [phone] * HEPATITIS C ANTIBODY (10/01/2021 11:38 AM PROOF COINS INSPECTOR) Hepatitis C Antibody Non-react young Non-reac tive 10/01/2021 1:14 PM PROOF COINS INSPECTOR [facility] Comment:Hepatitis C Antibody screen [...] Lab Venipuncture / Unknown 10/01/2021 11:38 AM PROOF COINS INSPECTOR 10/01/2021 11:46 AM PROOF COINS INSPECTOR Amos Pabon MD LAB - CHEMISTRY KURT [employer] Organization Address City/State/ZIP Co de Phone Number [facility] [address] [place] [address], [facility] [phone] from Last 3 Months or Most Recently Relevant to Health Maintenance Advance Directives * Full Code (Latest Code Status on File) Date Activated Date Inactivated Comments 03/29/2024 12:13 AM 03/29/2024 11:54 PM Care Teams Sales Representative Girls' Apparel Relationship Specialty Start Date End Date Teodoro Lopez PCP - General 05/17/24 Eric Oconnell MD Hospitalist 10/10/21
--- OUTSIDE RECORDS SUMMARY | 2024-12-03 11:48 | XMS_ITS | Encounter Summary ---
Author Organization [facility] Address [address] [place] [address] Care Team Providers Care Key Carrier Name Role Phone Eric Oconnell MD Unavailable [phone] Gregorio James MD Primary Care Provider [phone] Teodoro Lopez Primary Care Provider Unavailabl e Encounter Details Date Type Department Care Team (Late st Contact Info) Description 05/01/2024 Telephone [facility] - [address] [facility] [place] [address] Nahed Quinonez, ALFREDO Social History [...] need for new PA for Xifaxan. Reports [facility] denies pt need for Xifiaxan while taking lactulose. RN place request for pt assistance renewal for pt. New med list including both medications sent to facility. [facility] notified for pt assistance renewal. documented in this encounter Plan of Treatment Upcoming Encounters Date Type Department Care Team (Late st Contact Info) Description 01/08/2025 8:00 AM CDT Appointment [facility] [address] [place] [address] 01/08/2025 9:00 AM CDT Office Visit [facility] [address] [facility] [place] [phone] Amos Pabon MD [address] [place] [address] [address] [facility] [place] [address] documented as of this encounter Goals Goal [...] on filedocumented in this encounter Care Teams Key Carrier Relationship Specialty Start Date End Date Gregorio James MD [address] [place] [phone] PCP - General 08/11/22 05/16/24 Teodoro Lopez PCP - General 05/17/24 Eric Oconnell MD Hospitalist 10/10/21 documented as of this encounter
--- OUTSIDE RECORDS SUMMARY | 2024-12-03 11:48 | XMS_ITS | Clinical Summary ---
Author Organization [facility] [employer] Address [address] [place] [address] Care Team Providers Care Adjunct Political Science Instructor Name Role Phone Eric Oconnell MD Unavailable [phone] Teodoro Lopez Primary Care Provider Unavailabl e Source Comments [facility],non-owned Affiliates and Associated Physician Practices is amultiple site organization consisting of ambulatory clinics and hospital sitesin [place], [place] and [place]. This disclosure is being madepursuant to the Care Everywhere program and may not contain all information available regarding this patient. Last updated 18.[facility] [employer] [employer] Allergies Active Allergy Reactions Criticality Noted Date [...] affected area as needed Active HYDROcodone-acetamin ophen ([place]) 5-325 MG tablet Take 1 (one) tablet [...] Info) Description 01/08/2025 8:00 AM CDT Appointment [facility] [address] [place] [address] 01/08/2025 9:00 AM CDT Office Visit [facility] - GI [address] [place] [address] Amos Pabon MD [address] [place] [address] Health Maintenance Due Date Last Done Comments [...] HEPATITIS C ANTIBODY Routine 10/01/2021 11:38 AM BITUMINOUS PAVING MACHINE OPERATOR Cirrhosis of liver with ascites, unspecified hepatic cirrhosis type (HCC) from Last 3 Months or Most Recently Relevant to Health Maintenance Results * (ABNORMAL) COMPREHENSIVE METABOLIC PANEL (03/29/2024 4:30 AM CDT) BUN 10 7 - 26 mg/dL 03/29/2024 5:09 AM [facility] Creatinine 0.84 0.71 - 1.16 mg/dL 03/29/2024 5:09 AM [facility] Sodium 135(L) 136 - 145 mmol/L 03/29/2024 5:09 AM [facility] Potassium 3.8 3.5 - 4.5 mmol/L 03/29/2024 5:09 AM [facility] Chloride 105 98 - 107 mmol/L 03/29/2024 5:09 AM [facility] CO2 22 22 - 29 mmol/L 03/29/2024 5:09 AM [facility] Glucose 87 70 - 115 mg/dL 03/29/2024 5:09 AM [facility] Calcium 9.6 8.4 - 10.2 mg/dL 03/29/2024 5:09 AM [facility] Protein Total 7.6 6.0 - 8.3 g/dL 03/29/2024 5:09 AM [facility] Albumin 3.8 3.4 - 5.0 g/dL 03/29/2024 5:09 AM [facility] Bilirubin Total 0.9 0.2 - 1.2 mg/dL 03/29/2024 5:09 AM [facility] Alkaline Phosphatase 81 40 - 150 U/L 03/29/2024 5:09 AM [facility] ALT 20 5 - 55 U/L 03/29/2024 5:09 AM [facility] AST 17 5 - 34 U/L 03/29/2024 5:09 AM [facility] Anion Gap 8 6 - 16 03/29/2024 5:09 AM [facility] BUN/Creatinine Ratio 12 7 - 23 03/29/2024 5:09 AM [facility] Osmolality Calculated 278 275 - 295 mOsm/kg 03/29/2024 5:09 AM [facility] Albumin/Globulin Ratio 1.0(L) 1.1 - 2.3 03/29/2024 5:09 AM [facility] eGFR by CKD-EPI >90 >=90 mL/min/1.7 3 m2 03/29/2024 5:09 AM [facility] Blood BLOOD SPECIMEN / Unknown Lab Venipuncture / Unknown 03/29/2024 4:30 AM T 03/29/2024 4:41 AM [facility] Isaak Ibrahim MD LAB - CHEMISTRY KURT ZARAGO[facility] Organization Address City/State/ZIP Co de Phone Number [facility] [address] [place] [address], [place] [phone] * HEPATITIS C ANTIBODY (10/01/2021 11:38 AM BITUMINOUS PAVING MACHINE OPERATOR) Hepatitis C Antibody Non-react young Hansen-reac tirickey 10/01/2021 1:14 PM BITUMINOUS PAVING MACHINE OPERATOR [facility] Comment:Hepatitis C Antibody screen indicates [...] Lab Venipuncture / Unknown 10/01/2021 11:38 AM BITUMINOUS PAVING MACHINE OPERATOR 10/01/2021 11:46 AM BITUMINOUS PAVING MACHINE OPERATOR Amos Pabon MD LAB - CHEMISTRY KURT ZARAGOZA [facility] [address] [place] [address], [facility] [phone] from Last 3 Months or Most Recently Relevant to Health Maintenance Advance Directives * Full Code (Latest Code Status on File) Date Activated Date Inactivated Comments 03/29/2024 12:13 AM 03/29/2024 11:54 PM Care Teams Adjunct Political Science Instructor Relationship Specialty Start Date End Date Teodoro Lopez PCP - General 05/17/24 Eric Oconnell MD Hospitalist 10/10/21
[2024-12-03 11:52] LABS: Basophils Absolute Auto 0.1 K/mm3 (0.0-0.1); Basophils Percent Auto 0.9 % (0.2-1.2); Eosinophils Absolute Auto 0.1 K/mm3 (0-0.3); Hematocrit 41.1 % (42.0-52.0); Hemoglobin 14.9 g/dL (14.0-18.0); Immature Granulocyte Absolute 0.03 K/mm3 (0.00-0.031); Immature Granulocyte Percent A 0.5 % (0-0.5); Lymphocytes Absolute Auto 1.34 K/mm3 (0.9-3.2); Lymphocytes Percent Auto 20.5 % (18.3-44.2); Mean Corpuscular HGB Conc 36.3 g/dl (32-36); Mean Corpuscular Hemoglobin 33.2 pg (26-34); Mean Corpuscular Volume 91.5 fl (80-100); Monocytes Absolute Auto 1.1 K/mm3 (0.1-0.6); Monocytes Percent Auto 16.5 % (2.6-8.5); Neutrophils Absolute Auto 3.9 K/mm3 (1.3-6.7); Neutrophils Percent Auto 59.6 % (45.5-73.1); Platelet Count Result 191 k/mm3 (150-375); Red Blood Count 4.49 M/mm3 (4.6-6.20); White Blood Count 6.6 K/mm3 (4.5-10.0)
--- NOTE | 2024-12-03 11:57 | ED_ITS ---
HPI - Abdominal Pain General Chief Complaint: Abdominal Pain Stated Complaint: abdominal pain Time Seen by Provider: 12/03/24 11:37 History of Present Illness HPI narrative: 39-year-old male presenting from his [place] [facility] [place] for evaluation of epigastric and left-sided upper quadrant abdominal pain. He has a history of liver cirrhosis, alcohol abuse, Holt's esophagus, esophagitis, gastritis, PE on Eliquis. Patient presents to the ED for frequent evaluations of abdominal discomfort with negative CT images over last few months. He was recently here 2 weeks prior with similar complaints. Has not followed up with his GI doctor in several months. Endorses symptomatic improvement with Maalox and Pepcid. Endorses some vomiting yesterday but no present nauseousness. No chest pain, shortness a breath, fever, chills, back pain, extremity swelling or any other new concerns. Related Data Home Medications ?Medication ?Instructions ?Recorded ?Confirmed ?Last Taken ?Type thiamine HCl (vitamin B1) 100 mg 100 mg PO DAILY 04/20/21 10/10/24 01/12/24 History tablet melatonin 3 mg tablet 3 mg PO HS 09/15/21 10/10/24 09/23/21 History ferrous sulfate 325 mg (65 mg 325 mg PO DAILY 11/12/21 10/10/24 01/12/24 History iron) tablet rifaximin 550 mg tablet (Xifaxan) 550 mg PO BID 11/12/21 10/10/24 01/12/24 History calcium carbonate 500 mg PO TID 06/24/22 10/10/24 01/12/24 History cholecalciferol (vitamin D3) 125 125 mcg PO DAILY 06/24/22 10/10/24 01/12/24 History mcg (5,000 unit) tablet potassium chloride 20 mEq 20 meq PO DAILY 06/24/22 10/10/24 01/12/24 History tablet,extended release furosemide 20 mg tablet (Lasix) 60 mg PO BID 12/14/22 10/10/24 01/12/24 History spironolactone 50 mg tablet 100 mg PO DAILY 12/14/22 10/10/24 01/12/24 History (Aldactone) diclofenac sodium 1 % topical gel 2 g topical BID PRN Pain 12/15/23 10/10/24 Unknown History magnesium oxide 400 mg PO HS 12/15/23 10/10/24 01/12/24 History propranolol 10 mg tablet 10 mg PO BID 12/15/23 10/10/24 01/12/24 History sucralfate 100 mg/mL oral 10 ml PO TID 12/15/23 10/10/24 01/12/24 History suspension baclofen 10 mg tablet 10 mg PO BID 01/12/24 10/10/24 01/12/24 History bupropion HCl 100 mg tablet 100 mg PO TID 01/12/24 10/10/24 01/12/24 History buspirone 5 mg tablet 15 mg PO TID Anxiety 01/12/24 10/10/24 01/12/24 History hydroxyzine HCl 25 mg tablet 25 mg PO TID Anxiety 01/12/24 10/10/24 01/12/24 History lactulose 10 gram/15 mL oral 30 ml PO TID 01/12/24 10/10/24 01/12/24 History solution ondansetron HCl 4 mg tablet 4 mg PO Q8H PRN nausea/vomiting 01/12/24 10/10/24 Unknown History prazosin 1 mg capsule 1 mg PO QID 01/12/24 10/10/24 01/12/24 History trazodone 50 mg tablet 50 mg PO QHS 01/12/24 10/10/24 01/11/24 History Lactobacillus acidophilus 1,000 mmu cells PO BID 08/25/24 10/10/24 Unknown History gabapentin 400 mg capsule 400 mg PO TID 08/25/24 10/10/24 Unknown History haloperidol 5 mg tablet 2.5 mg PO BID 08/25/24 10/10/24 Unknown History lidocaine 4 % topical patch 1 patch topical DAILY 08/25/24 10/10/24 Unknown History (Aspercreme (lidocaine)) menthol 5 % topical patch 1 patch topical DAILY 08/25/24 10/10/24 Unknown History (Biofreeze (menthol)) nuphhzri-jwyux-jtdprma-diperod 1 ea topical QID 08/25/24 10/10/24 Unknown History topical ointment simethicone 80 mg chewable tablet 80 mg PO BID PRN Abdominal 08/25/24 10/10/24 Unknown History Discomfort aluminum-mag hydroxide-simethicone 30 ml PO QID PRN indigestion 10/10/24 10/11/24 Unknown History 200 mg-200 mg-20 mg/5 mL oral susp (Advanced Antacid-Antigas) calcium carbonate (Antacid 200 mg PO TID 10/10/24 10/10/24 Unknown History (calcium carbonate)) lidocaine HCl 4 % topical cream 1 applic topical DAILY 10/10/24 10/10/24 Unknown History (Aspercreme (lidocaine HCl)) lorazepam 1 mg tablet 1 mg PO Q6H 10/10/24 10/10/24 Unknown History hydrocodone 10 mg-acetaminophen 1 tablet PO Q6H PRN pain 10/11/24 10/11/24 Unknown History 325 mg tablet Allergies Allergy/AdvReac Type Severity Reaction Status Date / Time peanut Allergy Severe Anaphylaxis Verified 10/10/24 08:42 shellfish derived Allergy Unknown Unknown Verified 10/10/24 08:42 mushroom AdvReac Unknown Verified 10/10/24 08:42 Review of Systems 2 Review of Systems: As reviewed above in [facility] Past Medical History Medical History 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 Esophageal varices Depression with anxiety Fracture of left hip Cirrhosis Holt's esophagus with esophagitis Tobacco abuse Alcoholic hepatitis Alcohol abuse Surgical History Surgical History History of colonoscopy with polypectomy (05/25/22) Benign colon polyp, internal hemorrhoids. History of esophagogastroduodenoscopy (05/22/22) Nonbleeding esophageal varices, Holt esophagus without dysplasia, gastritis. Family History Family History Mother Liver disease Cirrhosis Grandparent Heart failure Heart attack Social History Social History Social History: Surrogate medical decision maker: Modesto Diaz, father. Code status: Full code. Smoking packs per day: 0.25 Smoking cigarettes per day: 5.0 Years smoked: 20 Smoking pack-years: 5.00 Smoking status: Current every day smoker Additional smoking assessment comments: Now smoking about 5 cigarettes a day while at a [place] [facility] [place] [facility] facility. T Alcohol intake: former Drinks per week: 120 Alcohol use details: Longstanding history of alcohol abuse. Substance use: current Substance use type: does not use Last use: 7 liters vodka week; patient states no alcohol x2 weeks Do You Feel Safe in your Home?: Yes Lack of Transportation: No Lack of Food: Never True Current Housing: I Have Housing Concerned About Future Housing: No Difficulty Paying Gas/Electric Bills: No Difficulty Paying for Meds: No Currently Unemployed: No Education: High School Diploma/GED Difficulty w/ Childcare or Family Care: No Living arrangements[place] [facility] [place] Additional living arrangements comments: Currently at [facility] [place] Spiritual care concerns: No Exam 2 Narrative: GENERAL: Chronically ill-appearing but not any acute distress, answering questions appropriately HEAD: [Normocephalic, atraumatic.] EYES: [PERRLA and EOMI.] ENT: Nares clear, no rhinorrhea or epistaxis. Mucous membranes moist. NECK: Supple. CHEST: [Clear to auscultation. No respiratory distress.] HEART: [Regular rate and rhythm]. No murmur heard. [Normal peripheral pulses.] Warm well-perfused extremities ABDOMEN: Protuberant but soft, abdominal striae noted, distended abdominal veins noted, [nontender], [No rigidity or guarding] EXTREMITIES: Normal range of motion. No peripheral edema SKIN: Warm, dry, no rash. NEURO: [No focal deficits]. Alert and oriented [x3.] PSYCH: [Normal mood and affect.] MDM - Abdominal Pain MDM Narrative Medical decision making narrative: 39-year-old male with chronic history of liver cirrhosis, esophagitis, gastritis, DVT on Eliquis. Patient presents with acute on chronic left-sided upper quadrant and epigastric abdominal pain. Feels similar to his previous episode of gastritis. Has not followed up with his GI doctor for last several months. He is otherwise well-appearing, not any acute distress, has a soft nontender abdomen with protuberance and chronic distension similar to previous examinations. Abdominal straight a shins are noted. He has reassuring vital signs with a pressure 105/77, heart rate of 91, saturating well on room air and afebrile. Differential includes gastritis, GERD, peptic ulcer disease, less likely esophageal process such as a bleed or gallbladder disease. Laboratory studies were obtained including CBC, CMP, lipase, urinalysis. A CT of the abdomen pelvis was obtained he was treated with Maalox, Pepcid, Zofran and re- evaluated. Workup shows no leukocytosis or anemia. Normal platelet level. Mild electrolyte derangements but no severe hypokalemia or signs of kidney dysfunction, likely secondary to his diuretic therapies. Normal LFTs, normal glucose. Normal GFR. Normal lipase. Urinalysis without any signs of infection or blood. CT scan shows chronic cirrhosis, portal venous hypertension, sliding type hiatal hernia and no otherwise concerning acute intra-abdominal findings. Patient was improved after symptom control and stable for discharge home with regular GI follow-up. Medical Records Attestation: I reviewed the patient's medical records. Lab Data Attestation: I reviewed the patient's lab results. 12/03/24 11:47 12/03/24 11:47 Labs: Lab Results 12/03/24 12/03/24 Range/Units 11:47 12:06 WBC 6.6 (4.5-10.0) K/mm3 RBC 4.49 L (4.6-6.20) M/mm3 Hgb 14.9 (14.0-18.0) g/dL Hct 41.1 L (42.0-52.0) % MCV 91.5 (80-100) fl MCH 33.2 (26-34) pg MCHC 36.3 H (32-36) g/dl RDW 12.0 (11.5-14.5) % Plt Count 191 (150-375) k/mm3 MPV 10.0 (7.4-10.4) fl Immature Gran % (Auto) 0.5 (0-0.5) % Neut % (Auto) 59.6 (45.5-73.1) % Lymph % (Auto) 20.5 (18.3-44.2) % [place] % (Auto) 16.5 H (2.6-8.5) % Eos % (Auto) 2.0 (0-4.4) % Baso % (Auto) 0.9 (0.2-1.2) % Lymph # (Auto) 1.34 (0.9-3.2) K/mm3 [place] # (Auto) 1.1 H (0.1-0.6) K/mm3 Eos # (Auto) 0.1 (0-0.3) K/mm3 Baso # (Auto) 0.1 (0.0-0.1) K/mm3 Abs Immat Gran (auto) 0.03 (0.00-0.031) K/mm3 Absolute Neuts (auto) 3.9 (1.3-6.7) K/mm3 Absolute Nucleated RBC 0.000 (0.0-0.012) K/mm3 Nucleated RBC % 0.0 (0.0-0.2) % Sodium 131 L (137-145) mmol/L Potassium 3.3 L (3.4-5.0) mmol/L Chloride 84 L (98-107) mmol/L Carbon Dioxide 37 H (22-30) mmol/L Anion Gap 10 (4-12) mmol/L BUN 8 L (9-20) mg/dL Creatinine 0.66 L (0.7-1.3) mg/dL Estim Creat Clear Calc 142 ml/min Estimated GFR > 60 (59 - ) Glucose 116 H (65-110) mg/dL Calcium 10.0 (8.4-10.2) mg/dL Total Bilirubin 1.0 (0.2-1.3) mg/dL AST 32 (17-59) U/L ALT 33 (6-50) U/L Alkaline Phosphatase 105 (38-126) U/L Total Protein 8.0 (6.3-8.2) g/dL Albumin 4.5 (3.5-5.1) g/dL Lipase 83 (23-300) U/L Urine Color Yellow (Yellow) Urine Appearance Clear (Clear) Urine pH 7.0 (5.0-9.0) Ur Specific [place] 1.008 (1.001-1.035) Urine Protein Negative (Negative) mg/dL Urine Glucose (UA) Negative (Negative) mg/dL Urine Ketones Negative (Negative) mg/dL Ur Blood (Man) Negative (Negative) Urine Nitrate Negative (Negative) Urine Bilirubin Negative (Negative) Urine Urobilinogen 0.2 (<2.0) mg/dL Leukocyte Esterase Rfl Negative (Negative) DANIE/UL Imaging Data Attestation: I personally reviewed and interpreted this imaging study as follows: Radiologist's impression: ITS Impressions Abdomen/Pelvis CT 12/03/24 12:28 IMPRESSION: 1. Cirrhosis with paraesophageal varices consistent with secondary portal venous hypertension. 2. Small sliding-type hiatal hernia. 3. Small fat-containing umbilical and bilateral inguinal hernias. 4. Chronic nonunited left femoral neck fracture. Discharge Plan Discharge Clinical Impression: Hiatal hernia, Abdominal pain, Liver disease, chronic, with cirrhosis Patient Disposition: NH Fpc/Asst Living Condition: Stable Instructions: Antibiotic Form, Hiatal Hernia (DC), Abdominal Pain (ED) Additional Instructions: You have a hiatal hernia which is likely causing your recurrent pain and symptoms. No acute emergencies or concerns your CT scan imaging or laboratory studies. Follow-up with your GI doctor about this, return with any new or worsening concerns. Patient Language: Slovenian Prescriptions: No Action folic acid 1 mg tablet 1 mg PO DAILY Qty: 30 0RF thiamine HCl (vitamin B1) 100 mg Tablet 100 mg PO DAILY ferrous sulfate 325 mg (65 mg iron) Tablet 325 mg PO DAILY Xifaxan 550 mg tablet 550 mg PO BID spironolactone [Aldactone] 50 mg tablet 100 mg PO DAILY furosemide [Lasix] 20 mg tablet 60 mg PO BID sucralfate 100 mg/mL suspension 10 ml PO TID diclofenac sodium 1 % Gel 2 g TOPICAL BID PRN (Reason: Pain) Rx Instructions: ANYWHERE ON THE BODY magnesium oxide 400 mg tablet 400 mg PO HS propranolol 10 mg tablet 10 mg PO BID Eliquis DVT-PE Treat 30D Start 5 mg (74 tabs) tablets,dose pack See Rx Instructions .ROUTE .COMPLEX Qty: 74 0RF Rx Instructions: orally per package directions lidocaine [Aspercreme (lidocaine)] 4 % Adhesive Patch,Medicated 1 patch TOPICAL DAILY Rx Instructions: Apply to Rt. Upper quadrant of abdomen Lactobacillus acidophilus Tablet 1,000 mmu cells PO BID Biofreeze (menthol) 5 % Adhesive Patch,Medicated 1 patch TOPICAL DAILY Rx Instructions: 1 patch to abdomen haloperidol 5 mg tablet 2.5 mg PO BID gabapentin 400 mg capsule 400 mg PO TID simethicone 80 mg Tablet,Chewable 80 mg PO BID PRN (Reason: Abdominal Discomfort) orsncsqv-dquje-bkkuhgn-diperod Ointment 1 ea TOPICAL QID lidocaine HCl [Aspercreme (lidocaine HCl)] 4 % cream 1 applic topical DAILY calcium carbonate [Antacid (calcium carbonate)] 200 mg calcium (500 mg) tablet,chewable 200 mg PO TID alum-mag hydroxide-simeth [Advanced Antacid-Antigas] 200-200-20 mg/5 mL suspension 30 ml PO QID PRN (Reason: indigestion) lorazepam 1 mg tablet 1 mg PO Q6H hydrocodone-acetaminophen 10-325 mg tablet 1 tablet PO Q6H PRN (Reason: pain) melatonin 3 mg Tablet 3 mg PO HS calcium carbonate 500 mg calcium (1,250 mg) Tablet,Chewable 500 mg PO TID Rx Instructions: With Meals cholecalciferol (vitamin D3) 125 mcg (5,000 unit) Tablet 125 mcg PO DAILY potassium chloride 20 mEq Tablet Extended Release 20 meq PO DAILY trazodone 50 mg tablet 50 mg PO QHS prazosin 1 mg capsule 1 mg PO QID ondansetron HCl 4 mg Tablet 4 mg PO Q8H PRN (Reason: nausea/vomiting) bupropion HCl 100 mg tablet 100 mg PO TID lactulose 10 gram/15 mL solution 30 ml PO TID buspirone 5 mg tablet 15 mg PO TID baclofen 10 mg tablet 10 mg PO BID hydroxyzine HCl 25 mg tablet 25 mg PO TID apixaban 5 mg tablet 5 mg PO BID Qty: 30 0RF Follow-up/Referrals: Teodoro Lopez MD [Primary Care Provider] - Stand Alone Forms: Halfway Discharge Time of Disposition: 12:48
[2024-12-03 12:01] LABS: Alanine Aminotransferase 33 U/L (6-50); Albumin Level 4.5 g/dL (3.5-5.1); Alkaline Phosphatase 105 U/L (38-126); Anion Gap 10 mmol/L (4-12); Aspartate Amino Transferase 32 U/L (17-59); Blood Urea Nitrogen 8 mg/dL (9-20); Carbon Dioxide 37 mmol/L (22-30); Chloride 84 mmol/L (98-107); Estimated CRCL calculation 142 ml/min; Estimated Glomerular Filt Rate > 60; Glucose 116 mg/dL (65-110); Lipase 83 U/L (23-300); Potassium 3.3 mmol/L (3.4-5.0); Sodium 131 mmol/L (137-145)
[2024-12-03 12:13] LABS: Add Urine Microscopic? NO; Appearance Urine Clear (Clear); Bilirubin Urine Negative (Negative); Blood Urine Negative (Negative); Color Urine Yellow (Yellow); Glucose Urine UA Negative (Negative); Ketones Urine Negative (Negative); Leukocyte Esterase Ur Negative LEU/UL (Negative); Nitrate Urine Negative (Negative); Protein Urine Negative (Negative); Specific Grav Ur 1.008 (1.001-1.035); Urobilinogen Urine 0.2 mg/dL (<2.0)
[2024-12-03] MEDS: MAG HYDROX/AL HYDROX/SIMETH 30 ML UDC PO (12:42)
[2024-12-03] MEDS: ONDANSETRON INJ 4 MG/2 ML VIAL IV PUSH (12:42)
[2024-12-03] MEDS: FAMOTIDINE 20 MG/2 ML VIAL IV PUSH (12:42)
== END 2024-12-03 13:36 ==
PROVIDERS: Emergency Provider Student in an Organized Health Care Education/Training Program; PCP Hospitalist
DX: K44.9 Diaphragmatic hernia without obstruction or gangrene (principal); K74.60 Unspecified cirrhosis of liver; I85.10 Secondary esophageal varices without bleeding; F10.10 Alcohol abuse, uncomplicated; D64.9 Anemia, unspecified; K22.70 Barrett's esophagus without dysplasia; F17.210 Nicotine dependence, cigarettes, uncomplicated; F41.8 Other specified anxiety disorders; Z86.711 Personal history of pulmonary embolism; Z86.718 Personal history of other venous thrombosis and embolism; Z86.0100 Personal history of colon polyps, unspecified; Z79.01 Long term (current) use of anticoagulants; Z79.899 Other long term (current) drug therapy; K42.9 Umbilical hernia without obstruction or gangrene; K40.20 Bilateral inguinal hernia, without obstruction or gangrene, not specified as recurrent
CPT/HCPCS: 36415; 74177; 80053; 81003; 83690; 85025; 96374; 96375; 99284; A9270; J2405; Q9967

== ENCOUNTER 2025-01-23 12:08 | Emergency (ER) | payer MEDICARE, MEDICAID, SELFPAY ==
[2025-01-23] VITALS (8 sets, daily range): BP systolic 105–119; BP diastolic 72–87; PULSE 68–82; RESP 10–23; TEMP 36.2; O2SAT 94–99
--- NOTE | 2025-01-23 12:47 | ED_ITS ---
HPI - General Adult General Chief complaint: Nausea/Vomiting/Diarrhea Stated complaint: N/V/D Time Seen by Provider: 01/23/25 12:32 History of Present Illness HPI narrative: 39-year-old male presented to the emergency department for evaluation for nausea vomiting diarrhea. Patient does have history of cirrhosis and does take lactulose. Patient resides at [facility]. Patient states 2 days ago he started developing diarrhea and stop taking his lactulose. Patient states he has had persistent nausea and vomiting. Patient denies any associated abdominal pain. Related Data Home Medications ?Medication ?Instructions ?Recorded ?Confirmed ?Last Taken ?Type thiamine HCl (vitamin B1) 100 mg 100 mg PO DAILY 04/20/21 10/10/24 01/12/24 History tablet melatonin 3 mg tablet 3 mg PO HS 09/15/21 10/10/24 09/23/21 History ferrous sulfate 325 mg (65 mg 325 mg PO DAILY 11/12/21 10/10/24 01/12/24 History iron) tablet rifaximin 550 mg tablet (Xifaxan) 550 mg PO BID 11/12/21 10/10/24 01/12/24 History calcium carbonate 500 mg PO TID 06/24/22 10/10/24 01/12/24 History cholecalciferol (vitamin D3) 125 125 mcg PO DAILY 06/24/22 10/10/24 01/12/24 History mcg (5,000 unit) tablet potassium chloride 20 mEq 20 meq PO DAILY 06/24/22 10/10/24 01/12/24 History tablet,extended release furosemide 20 mg tablet (Lasix) 60 mg PO BID 12/14/22 10/10/24 01/12/24 History spironolactone 50 mg tablet 100 mg PO DAILY 12/14/22 10/10/24 01/12/24 History (Aldactone) diclofenac sodium 1 % topical gel 2 g topical BID PRN Pain 12/15/23 10/10/24 Unknown History magnesium oxide 400 mg PO HS 12/15/23 10/10/24 01/12/24 History propranolol 10 mg tablet 10 mg PO BID 12/15/23 10/10/24 01/12/24 History sucralfate 100 mg/mL oral 10 ml PO TID 12/15/23 10/10/24 01/12/24 History suspension baclofen 10 mg tablet 10 mg PO BID 01/12/24 10/10/24 01/12/24 History bupropion HCl 100 mg tablet 100 mg PO TID 01/12/24 10/10/24 01/12/24 History buspirone 5 mg tablet 15 mg PO TID Anxiety 01/12/24 10/10/24 01/12/24 History hydroxyzine HCl 25 mg tablet 25 mg PO TID Anxiety 01/12/24 10/10/24 01/12/24 History lactulose 10 gram/15 mL oral 30 ml PO TID 01/12/24 10/10/24 01/12/24 History solution ondansetron HCl 4 mg tablet 4 mg PO Q8H PRN nausea/vomiting 01/12/24 10/10/24 Unknown History prazosin 1 mg capsule 1 mg PO QID 01/12/24 10/10/24 01/12/24 History trazodone 50 mg tablet 50 mg PO QHS 01/12/24 10/10/24 01/11/24 History Lactobacillus acidophilus 1,000 mmu cells PO BID 08/25/24 10/10/24 Unknown History gabapentin 400 mg capsule 400 mg PO TID 08/25/24 10/10/24 Unknown History haloperidol 5 mg tablet 2.5 mg PO BID 08/25/24 10/10/24 Unknown History lidocaine 4 % topical patch 1 patch topical DAILY 08/25/24 10/10/24 Unknown History (Aspercreme (lidocaine)) menthol 5 % topical patch 1 patch topical DAILY 08/25/24 10/10/24 Unknown History (Biofreeze (menthol)) nxyhixvn-yokkx-ftbostk-diperod 1 ea topical QID 08/25/24 10/10/24 Unknown History topical ointment simethicone 80 mg chewable tablet 80 mg PO BID PRN Abdominal 08/25/24 10/10/24 Unknown History Discomfort aluminum-mag hydroxide-simethicone 30 ml PO QID PRN indigestion 10/10/24 10/11/24 Unknown History 200 mg-200 mg-20 mg/5 mL oral susp (Advanced Antacid-Antigas) calcium carbonate (Antacid 200 mg PO TID 10/10/24 10/10/24 Unknown History (calcium carbonate)) lidocaine HCl 4 % topical cream 1 applic topical DAILY 10/10/24 10/10/24 Unknown History (Aspercreme (lidocaine HCl)) lorazepam 1 mg tablet 1 mg PO Q6H 10/10/24 10/10/24 Unknown History hydrocodone 10 mg-acetaminophen 1 tablet PO Q6H PRN pain 10/11/24 10/11/24 Unknown History 325 mg tablet metolazone 2.5 mg tablet mg PO 12/20/24 Unknown History Allergies Allergy/AdvReac Type Severity Reaction Status Date / Time peanut Allergy Severe Anaphylaxis Verified 12/20/24 11:18 shellfish derived Allergy Unknown Unknown Verified 12/20/24 11:18 mushroom AdvReac Unknown Verified 12/20/24 11:18 Review of Systems 2 Review of Systems: All systems reviewed & are unremarkable except as noted in HPI and below PMFSH Past Medical History Medical History 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 Esophageal varices Depression with anxiety Fracture of left hip Cirrhosis Holt's esophagus with esophagitis Tobacco abuse Alcoholic hepatitis Alcohol abuse Surgical History Surgical History History of colonoscopy with polypectomy (05/25/22) Benign colon polyp, internal hemorrhoids. History of esophagogastroduodenoscopy (05/22/22) Nonbleeding esophageal varices, Holt esophagus without dysplasia, gastritis. Family History Family History Mother Liver disease Cirrhosis Grandparent Heart failure Heart attack Social History Social History Social History: Surrogate medical decision maker: Modesto Diaz, father. Code status: Full code. Smoking packs per day: 0.25 Smoking cigarettes per day: 5.0 Years smoked: 20 Smoking pack-years: 5.00 Smoking status: Current every day smoker Additional smoking assessment comments: Now smoking about 5 cigarettes a day while at a care home facility. T Alcohol intake: former Drinks per week: 120 Alcohol use details: Longstanding history of alcohol abuse. Substance use: current Substance use type: does not use Last use: 7 liters vodka week; patient states no alcohol x2 weeks Do You Feel Safe in your Home?: Yes Lack of Transportation: No Lack of Food: Never True Current Housing: I Have Housing Concerned About Future Housing: No Difficulty Paying Gas/Electric Bills: No Difficulty Paying for Meds: No Currently Unemployed: No Education: High School Diploma/GED Difficulty w/ Childcare or Family Care: No Living arrangements: penitentiary Additional living arrangements comments: Currently at [facility] Spiritual care concerns: No Exam 2 Narrative: APPEARANCE: Well appearing, no pain, no distress, well-nourished. HEAD: normocephalic, atraumatic. EYES: PERRLA/EOMI, conjunctivae clear. NOSE: Normal no drainage EARS:TMS clear with good light reflex. THROAT: Pharynx clear, no exudate. NECK: Supple. No adenopathy, no masses. RESPIRATORY: Airway patent, respirations nonlabored. Clear to auscultation bilaterally, no rales, rhonchi, wheezing. CARDIOVASCULAR: Regular rate and rhythm without murmurs rubs or gallops. ABDOMINAL: Soft, nontender, nondistended, normal bowel sounds MUSCULOSKELETAL: Moves all extremities. Strength/ROM intact, No edema, No calf tenderness. NEURO: Alert. Cranial nerves II through XII intact. Good gait. Good coordination SKIN: Warm, dry. Normal Color Course Vital Signs Vital signs: Vital Signs Temperature 97.1 F L 01/23/25 12:10 Pulse Rate 77 01/23/25 12:10 Respiratory Rate 18 01/23/25 12:10 Blood Pressure 115/72 01/23/25 12:10 Pulse Oximetry 94 01/23/25 12:10 Oxygen Delivery Room Air 01/23/25 12:10 Temperature 97.1 F L 01/23/25 12:10 Pulse Rate 73 01/23/25 16:02 Respiratory Rate 18 01/23/25 16:02 Blood Pressure 105/75 01/23/25 16:02 Pulse Oximetry 99 01/23/25 16:02 Oxygen Delivery Room Air 01/23/25 12:10 Medical Decision Making MDM Narrative Medical decision making narrative: 39-year-old male present to the emergency department for evaluation for nausea vomiting diarrhea. Patient had no further emesis while in the ED. Patient states he does have Zofran at home. Patient is currently afebrile with no leukocytosis and hemoglobin of 14.8. Patient did have a potassium of 2.9 this is replaced both orally and IV. No significant changes in the patient's liver enzymes patient's pneumonia level is mildly elevated at 31 but patient states he has not been taking his lactulose. Patient's mental status as alert appropriate. Patient was negative influenza RSV and for COVID. Patient was tolerating p.o. and patient was discharged to home with instructions to take his home Zofran. All questions concerns were addressed patient was well-appearing at time of discharge. Differential Diagnosis Differential Diagnosis: COVID, RSV, influenza, elevated ammonia, nausea vomiting, diarrhea Vital Signs Vital Signs: Vital Signs Temperature 97.1 F L 01/23/25 12:10 Pulse Rate 77 01/23/25 12:10 Respiratory Rate 18 01/23/25 12:10 Blood Pressure 115/72 01/23/25 12:10 Pulse Oximetry 94 01/23/25 12:10 Oxygen Delivery Room Air 01/23/25 12:10 Temperature 97.1 F L 01/23/25 12:10 Pulse Rate 73 01/23/25 16:02 Respiratory Rate 18 01/23/25 16:02 Blood Pressure 105/75 01/23/25 16:02 Pulse Oximetry 99 01/23/25 16:02 Oxygen Delivery Room Air 01/23/25 12:10 Lab Data Lab results reviewed: Yes I reviewed the patient's lab results. 01/23/25 12:50 01/23/25 12:50 Labs: Lab Results 01/23/25 01/23/25 Range/Units 12:50 12:51 WBC 9.3 (4.5-10.0) K/mm3 RBC 4.42 L (4.6-6.20) M/mm3 Hgb 14.8 (14.0-18.0) g/dL Hct 40.2 L (42.0-52.0) % MCV 91.0 (80-100) fl MCH 33.5 (26-34) pg MCHC 36.8 H (32-36) g/dl RDW 12.4 (11.5-14.5) % Plt Count 185 (150-375) k/mm3 MPV 10.3 (7.4-10.4) fl Immature Gran % (Auto) 0.3 (0-0.5) % Neut % (Auto) 66.4 (45.5-73.1) % Lymph % (Auto) 18.9 (18.3-44.2) % [place] % (Auto) 12.0 H (2.6-8.5) % Eos % (Auto) 1.9 (0-4.4) % Baso % (Auto) 0.5 (0.2-1.2) % Lymph # (Auto) 1.76 (0.9-3.2) K/mm3 [place] # (Auto) 1.1 H (0.1-0.6) K/mm3 Eos # (Auto) 0.2 (0-0.3) K/mm3 Baso # (Auto) 0.1 (0.0-0.1) K/mm3 Abs Immat Gran (auto) 0.03 (0.00-0.031) K/mm3 Absolute Neuts (auto) 6.2 (1.3-6.7) K/mm3 Absolute Nucleated RBC 0.000 (0.0-0.012) K/mm3 Nucleated RBC % 0.0 (0.0-0.2) % Sodium 133 L (137-145) mmol/L Potassium 2.9 L (3.4-5.0) mmol/L Chloride 87 L (98-107) mmol/L Carbon Dioxide 32 H (22-30) mmol/L Anion Gap 14 H (4-12) mmol/L BUN 16 (9-20) mg/dL Creatinine 0.96 (0.7-1.3) mg/dL Estim Creat Clear Calc 98 ml/min Estimated GFR > 60 (59 - ) Glucose 103 (65-110) mg/dL Calcium 9.4 (8.4-10.2) mg/dL Total Bilirubin 1.0 (0.2-1.3) mg/dL AST 30 (17-59) U/L ALT 30 (6-50) U/L Alkaline Phosphatase 82 (38-126) U/L Ammonia 31 H (9-30) umol/L Total Protein 8.0 (6.3-8.2) g/dL Albumin 4.7 (3.5-5.1) g/dL Influenza A (RT-PCR) Negative (Negative) Influenza B (RT-PCR) Negative (Negative) RSV (RT-PCR) Negative (Negative) SARS-CoV-2 RNA (RT-PCR) Negative (Negative) Discharge Plan Discharge Clinical Impression: Nausea & vomiting Patient Disposition: Home, Self-Care Condition: Stable Instructions: Antibiotic Form, Clear Liquid Diet (ED), Acute Nausea and Vomiting (ED) Additional Instructions: Clear liquid diet for the next to 3 days. Zofran as needed for nausea control. Continue to take your lactulose. Have close follow-up with your primary care physician. Patient Language: Zambian Prescriptions: No Action metolazone 2.5 mg tablet PO folic acid 1 mg tablet 1 mg PO DAILY Qty: 30 0RF thiamine HCl (vitamin B1) 100 mg Tablet 100 mg PO DAILY ferrous sulfate 325 mg (65 mg iron) Tablet 325 mg PO DAILY Xifaxan 550 mg tablet 550 mg PO BID spironolactone [Aldactone] 50 mg tablet 100 mg PO DAILY furosemide [Lasix] 20 mg tablet 60 mg PO BID sucralfate 100 mg/mL suspension 10 ml PO TID diclofenac sodium 1 % Gel 2 g TOPICAL BID PRN (Reason: Pain) Rx Instructions: ANYWHERE ON THE BODY magnesium oxide 400 mg tablet 400 mg PO HS propranolol 10 mg tablet 10 mg PO BID Eliquis DVT-PE Treat 30D Start 5 mg (74 tabs) tablets,dose pack See Rx Instructions .ROUTE .COMPLEX Qty: 74 0RF Rx Instructions: orally per package directions lidocaine [Aspercreme (lidocaine)] 4 % Adhesive Patch,Medicated 1 patch TOPICAL DAILY Rx Instructions: Apply to Rt. Upper quadrant of abdomen Lactobacillus acidophilus Tablet 1,000 mmu cells PO BID Biofreeze (menthol) 5 % Adhesive Patch,Medicated 1 patch TOPICAL DAILY Rx Instructions: 1 patch to abdomen haloperidol 5 mg tablet 2.5 mg PO BID gabapentin 400 mg capsule 400 mg PO TID simethicone 80 mg Tablet,Chewable 80 mg PO BID PRN (Reason: Abdominal Discomfort) cgchwzoy-pxeba-sjsspqq-diperod Ointment 1 ea TOPICAL QID lidocaine HCl [Aspercreme (lidocaine HCl)] 4 % cream 1 applic topical DAILY calcium carbonate [Antacid (calcium carbonate)] 200 mg calcium (500 mg) tablet,chewable 200 mg PO TID alum-mag hydroxide-simeth [Advanced Antacid-Antigas] 200-200-20 mg/5 mL suspension 30 ml PO QID PRN (Reason: indigestion) lorazepam 1 mg tablet 1 mg PO Q6H hydrocodone-acetaminophen 10-325 mg tablet 1 tablet PO Q6H PRN (Reason: pain) melatonin 3 mg Tablet 3 mg PO HS calcium carbonate 500 mg calcium (1,250 mg) Tablet,Chewable 500 mg PO TID Rx Instructions: With Meals cholecalciferol (vitamin D3) 125 mcg (5,000 unit) Tablet 125 mcg PO DAILY potassium chloride 20 mEq Tablet Extended Release 20 meq PO DAILY trazodone 50 mg tablet 50 mg PO QHS prazosin 1 mg capsule 1 mg PO QID ondansetron HCl 4 mg Tablet 4 mg PO Q8H PRN (Reason: nausea/vomiting) bupropion HCl 100 mg tablet 100 mg PO TID lactulose 10 gram/15 mL solution 30 ml PO TID buspirone 5 mg tablet 15 mg PO TID baclofen 10 mg tablet 10 mg PO BID hydroxyzine HCl 25 mg tablet 25 mg PO TID apixaban 5 mg tablet 5 mg PO BID Qty: 30 0RF Follow-up/Referrals: Teodoro Lopez MD [Primary Care Provider] -
[2025-01-23 12:58] LABS: Basophils Absolute Auto 0.1 K/mm3 (0.0-0.1); Basophils Percent Auto 0.5 % (0.2-1.2); Eosinophils Absolute Auto 0.2 K/mm3 (0-0.3); Eosinophils Percent Auto 1.9 % (0-4.4); Hematocrit 40.2 % (42.0-52.0); Hemoglobin 14.8 g/dL (14.0-18.0); Immature Granulocyte Absolute 0.03 K/mm3 (0.00-0.031); Immature Granulocyte Percent A 0.3 % (0-0.5); Lymphocytes Absolute Auto 1.76 K/mm3 (0.9-3.2); Lymphocytes Percent Auto 18.9 % (18.3-44.2); Mean Corpuscular HGB Conc 36.8 g/dl (32-36); Mean Corpuscular Hemoglobin 33.5 pg (26-34); Mean Platelet Volume 10.3 fl (7.4-10.4); Monocytes Absolute Auto 1.1 K/mm3 (0.1-0.6); Neutrophils Absolute Auto 6.2 K/mm3 (1.3-6.7); Neutrophils Percent Auto 66.4 % (45.5-73.1); Platelet Count Result 185 k/mm3 (150-375); Red Blood Count 4.42 M/mm3 (4.6-6.20); Red Cell Distribution Width 12.4 % (11.5-14.5); White Blood Count 9.3 K/mm3 (4.5-10.0)
[2025-01-23 13:08] LABS: Alanine Aminotransferase 30 U/L (6-50); Albumin Level 4.7 g/dL (3.5-5.1); Alkaline Phosphatase 82 U/L (38-126); Ammonia 31 umol/L (9-30); Anion Gap 14 mmol/L (4-12); Aspartate Amino Transferase 30 U/L (17-59); Blood Urea Nitrogen 16 mg/dL (9-20); Calcium 9.4 mg/dL (8.4-10.2); Carbon Dioxide 32 mmol/L (22-30); Chloride 87 mmol/L (98-107); Estimated CRCL calculation 98 ml/min; Estimated Glomerular Filt Rate > 60; Glucose 103 mg/dL (65-110); Potassium 2.9 mmol/L (3.4-5.0); Sodium 133 mmol/L (137-145)
--- OUTSIDE RECORDS SUMMARY | 2025-01-23 13:09 | XMS_ITS | Encounter Summary ---
Author Organization [facility] Health Address [address] [place] [address] Care Team Providers Care Game Tester Name Role Phone Eric Oconnell MD Unavailable [phone] Gregorio James MD Primary Care Provider [phone] Teodoro Lopez Primary Care Provider Unavailabl e Encounter Details Date Type Department Care Team (Late st Contact Info) Description 05/01/2024 Telephone [facility] - [address] [facility], [place] [address] Nahed Quinonez, ALFREDO Social History [...] need for new PA for Xifaxan. Reports [facility] denies pt need for Xifiaxan while taking lactulose. RN place request for pt assistance renewal for pt. New med list including both medications sent to facility. [facility] notified for pt assistance renewal. documented in this encounter Plan of Treatment Upcoming Encounters Date Type Department Care Team (Late st Contact Info) Description 03/14/2025 10:00 AM CDT Office Visit [facility] - Orthopedic Surgery [address] [place] [address] Toño Cabrera MD [address] [facility] [address] [place] [address] documented as of this encounter Goals Goal [...] on filedocumented in this encounter Care Teams Game Tester Relationship Specialty Start Date End Date Gregorio James MD [address] [place] [phone] PCP - General 08/11/22 05/16/24 Teodoro Lopez PCP - General 05/17/24 Eric Oconnell MD Hospitalist 10/10/21 documented as of this encounter
--- OUTSIDE RECORDS SUMMARY | 2025-01-23 13:09 | XMS_ITS | Referral Summary ---
Author Organization [facility] Address [address] [place] [id number] Care Team Providers Care Job Printer Apprentice Name Role Phone Major Kraft MD Primary Care Provider Amos Pabon MD Unavailable [phone] Allergies Active Allergy Reactions Criticality Noted Date [...] Asked; Counseling Given: Not Answered [facility] Utilities Answer Date Recorded In the [...] any clubs o r organizations such as restoration groups, unions, fraternal or athletic groups, or [...] place to sleep or slept in a [place] (including now)? No 09/29/2023 Personal Safety Answer Date Recorded Have you ever been in or are you currently in a harmful physical or emotional relationship or is someone making you feel afraid or unsafe? Denies 09/28/2023 Sex and Gender Information Value Date Recorded Sex Assigned at Not on file Legal Sex Male 1:24 PM MEDICAL INSURANCE CLAIMS SPECIALIST Gender Identity Not on file Sexual Orientation Not on file Occupation Industry Job Start Date Job End Date disabled Not on file Not on file Not on file Last Filed Vital Signs Vital Sign Reading Time Taken Comments Blood Pressure 130/65 10/26/2023 4:38 AM MEDICAL INSURANCE CLAIMS SPECIALIST Pulse 68 10/26/2023 4:38 AM MEDICAL INSURANCE CLAIMS SPECIALIST Temperature 36.5 C (97.7 F) 10/26/2023 4:38 AM MEDICAL INSURANCE CLAIMS SPECIALIST Respiratory Rate 18 10/26/2023 4:38 AM MEDICAL INSURANCE CLAIMS SPECIALIST Oxygen Saturation 96% 10/26/2023 4:38 AM MEDICAL INSURANCE CLAIMS SPECIALIST Inhaled Oxygen Concentration - - Weight 90.6 kg (199 lb 11.8 oz) 10/05/2023 7:48 AM MEDICAL INSURANCE CLAIMS SPECIALIST Height 170.2 cm (5' 7.01 ) 09/30/2023 7:38 AM CS T Body Mass Index 31.28 09/30/2023 7:38 AM MEDICAL INSURANCE CLAIMS SPECIALIST Plan of Treatment Not on file [place] [address] Advance Directives For more information, please contact: [phone] * Full Code (Latest Code Status on File) Date Activated Date Inactivated Comments 09/30/2023 7:23 AM 10/05/2023 5:12 PM Care Teams Job Printer Apprentice Relationship Specialty Start Date End Date Major Kraft MD PCP - General Internal Medicine 11/07/21 Amos Pabon MD [address] [address] Referring Physician Internal Medicine 10/05/23
--- OUTSIDE RECORDS SUMMARY | 2025-01-23 13:09 | XMS_ITS | Encounter Summary ---
Author Organization [facility] Address [address] [facility] [place] [address] Care Team Providers Care Vocational Training Instructor Name Role Phone Major Kraft MD Primary Care Provider [phone] Eric Oconnell MD Unavailable [phone] Raya Carty PA-C Primary Care Provider Major Kraft MD Primary Care Provider [phone] Gregorio James MD Primary Care Provider [phone] Teodoro Lopez Primary Care Provider Unavailabl e Reason for Visit * Reason Onset Date Comments Pre-op Instructions 02/26/2022 Encounter Details Date Type Department Care Team (Late st Contact Info) Description 02/26/2022 Patient Outreach [facility] [address] [place] [phone] Ginger Amador, RN Pre-op Instructions Social History Tobacco Use [...] Description 03/14/2025 10:00 AM CDT Office Visit [facility] - Orthopedic Surgery [address] [place] [address] Toño Cabrera MD [address] [address] documented as of this encounter Goals Goal [...] on filedocumented in this encounter Care Teams Vocational Training Instructor Relationship Specialty Start Date End Date Major Kraft MD PCP - General 07/01/21 06/08/22 Raya Carty PA-C [facility] [address] PCP - General 06/09/22 07/05/22 Major Kraft MD PCP - General 07/06/22 08/10/22 Gregorio James MD [address] [place] [phone] PCP - General 08/11/22 05/16/24 Teodoro Lopez PCP - General 05/17/24 Eric Oconnell MD Hospitalist 10/10/21 documented as of this encounter
--- OUTSIDE RECORDS SUMMARY | 2025-01-23 13:09 | XMS_ITS | Clinical Summary ---
Author Organization [facility] Address [address] [facility] [place] [address] Care Team Providers Care Billet Checker Name Role Phone Eric Oconnell MD Unavailable [phone] Teodoro Lopez Primary Care Provider Unavailabl e Source Comments [facility],non-owned Affiliates and Associated Physician Practices is amultiple site organization consisting of ambulatory clinics and hospital sitesin [place], [place], [place] and [place]. This disclosure is being madepursuant to the Care Everywhere program and may not contain all information available regarding this patient. Last updated 18.[facility] Allergies Active Allergy Reactions Criticality Noted Date [...] affected area as needed Active HYDROcodone-acetamin ophen ([place]onderosa) 5-325 MG tablet Take 1 (one) tablet [...] Encounters Date Type Department Care Team Description 12/05/2024 Travel from Last 3 Months Social History [...] Description 03/14/2025 10:00 AM CDT Office Visit [facility] - Orthopedic Surgery [address] [place] [phone] Toño Cabrera MD [address] [facility] [address] [place] [address] Health Maintenance Due Date Last Done Comments [...] SCREENING 10/25/2024 11/17/2023 SCREENING FOR DIABETES 03/29/2027 4, 03/28/2024, 02/16/2022, Additional history exists ZOSTER VACCINE (1 of 2) 2034 HEPATITIS C SCREENING Completed 10/01/2021 HIB VACCINE Aged Out No longer eligi ble based on patient's age to complete this topic HPV VACCINE Aged Out No longer eligi ble based on patient's age to complete this topic MENINGOCOCCAL (Group B) VACCINE SHARED DECISION-MAKING Aged Out No longer eligible based on patient's age to complete this topic MENINGOCOCCAL GROUPS A/C/Y/W VACCINE Aged Out No longer eligible based [...] CDT Alcoholic cirrhosis of liver without ascites HEPATITIS C ANTIBODY Routine 10/01/2021 11:38 AM ELECTRIC BLANKET PACKER Cirrhosis of liver with ascites, unspecified hepatic cirrhosis type from Last 3 Months or Most Recently Relevant to Health Maintenance Results * (ABNORMAL) COMPREHENSIVE METABOLIC PANEL (03/29/2024 4:30 AM CDT) BUN 10 7 - 26 mg/dL 03/29/2024 5:09 AM [facility] Creatinine 0.84 0.71 - 1.16 mg/dL 03/29/2024 5:09 AM [facility] Sodium 135(L) 136 - 145 mmol/L 03/29/2024 5:09 AM [facility] Potassium 3.8 3.5 - 4.5 mmol/L 03/29/2024 5:09 AM [facility] Chloride 105 98 - 107 mmol/L 03/29/2024 5:09 AM CDT [facility] CO2 22 22 - 29 mmol/L 03/29/2024 5:09 AM [facility] Glucose 87 70 - 115 mg/dL 03/29/2024 5:09 AM [facility] Calcium 9.6 8.4 - 10.2 mg/dL 03/29/2024 5:09 AM [facility] Protein Total 7.6 6.0 - 8.3 g/dL 03/29/2024 5:09 AM [facility] Albumin 3.8 3.4 - 5.0 g/dL 03/29/2024 5:09 AM [facility] Bilirubin Total 0.9 0.2 - 1.2 mg/dL 03/29/2024 5:09 AM [facility] Alkaline Phosphatase 81 40 - 150 U/L 03/29/2024 5:09 AM [facility] ALT 20 5 - 55 U/L 03/29/2024 5:09 AM [facility] AST 17 5 - 34 U/L 03/29/2024 5:09 AM [facility] Anion Gap 8 6 - 16 03/29/2024 5:09 AM [facility] BUN/Creatinine Ratio 12 7 - 23 03/29/2024 5:09 AM [facility] Osmolality Calculated 278 275 - 295 mOsm/kg 03/29/2024 5:09 AM [facility] Albumin/Globulin Ratio 1.0(L) 1.1 - 2.3 03/29/2024 5:09 AM [facility] eGFR by CKD-EPI >90 >=90 mL/min/1.7 3 m2 03/29/2024 5:09 AM [facility] Blood BLOOD SPECIMEN / Unknown Lab Venipuncture / Unknown 03/29/2024 4:30 AM T 03/29/2024 4:41 AM [facility] Isaak Ibrahim MD LAB - CHEMISTRY ORDE NIK [facility] [place] Organization Address City/State/ZIP Co de Phone Number [facility] [address] [place] [address], [facility] [phone] * HEPATITIS C ANTIBODY (10/01/2021 11:38 AM ELECTRIC BLANKET PACKER) Hepatitis C Antibody Non-react young Non-reac tive 10/01/2021 1:14 PM ELECTRIC BLANKET PACKER [facility] Comment:Hepatitis C Antibody screen indicates no serologic evidence of past or current infection with Hepatitis C Virus. Patients with unexplained liver disease who are immunocompromised or suspected of having acute Hepatitis C infection may benefit from Nucleic Acid Test (MARIBELL) for Hepatitis C Viral RNA to confirm Hepatitis C status. Blood BLOOD SPECIMEN / Unknown Lab Venipuncture / Unknown 10/01/2021 11:38 AM ELECTRIC BLANKET PACKER 10/01/2021 11:46 AM ELECTRIC BLANKET PACKER Amos Pabon MD LAB - CHEMISTRY KURT ZARAGOZA [facility] [place] Organization Address City/State/ZIP Co de Phone Number [facility] [address] [place] [address], [facility] [phone] from Last 3 Months or Most Recently Relevant to Health Maintenance Advance Directives * Full Code (Latest Code Status on File) Date Activated Date Inactivated Comments 03/29/2024 12:13 AM 03/29/2024 11:54 PM Care Teams Billet Checker Relationship Specialty Start Date End Date Teodoro Lopez PCP - General 05/17/24 Eric Oconnell MD Hospitalist 10/10/21
--- OUTSIDE RECORDS SUMMARY | 2025-01-23 13:10 | XMS_ITS | Clinical Summary ---
Author Organization [facility] Address [address] [place] [phone] Care Team Providers Care Real Estate Agency Principal Name Role Phone Major Kraft MD Primary Care Provider Amos Pabon MD Unavailable [phone] Allergies Active Allergy Reactions Criticality Noted Date [...] Medical History Date Comments Gastric reflux Alcoholism (HCC) Cirrhosis (HCC) Peptic ulceration Family History Medical History Relation Name Comments No Known Problems Father No Known Problems Mother Relation Name Status Comments Father Mother Social History Tobacco Use Types Packs/Day Years Used Date Smoking Tobacco: Every Day Cigarettes 0.3 18 Tobacco Cessation:Ready to Q uit: Not Asked; Counseling Given: Not Answered [facility] Utilities Answer Date Recorded In the past 12 months has e [employer], [employer], oil, or water [employer] threatened to shut off services in your [...] week 09/29/2023 How often do you attend [facility] ch or restorationist services? Never 09/29/2023 Do you belong to any clubs o r organizations such as jainism groups, unions, fraternal or athletic groups, or [...] place to sleep or slept in a halfway (including now)? No 09/29/2023 Personal Safety Answer Date Recorded Have you ever been in or are you currently in a harmful physical or emotional relationship or is someone making you feel afraid or unsafe? Denies 09/28/2023 Sex and Gender Information Value Date Recorded Sex Assigned at Not on file Legal Sex Male 1:24 PM SENIOR AGRICULTURAL ASSISTANT Gender Identity Not on file Sexual Orientation Not on file Occupation Industry Job Start Date Job End Date disabled Not on file Not on file Not on file Obstetrics History Last Filed Vital Signs Vital Sign Reading Time Taken Comments Blood Pressure 130/65 10/26/2023 4:38 AM SENIOR AGRICULTURAL ASSISTANT Pulse 68 10/26/2023 4:38 AM SENIOR AGRICULTURAL ASSISTANT Temperature 36.5 C (97.7 F) 10/26/2023 4:38 AM SENIOR AGRICULTURAL ASSISTANT Respiratory Rate 18 10/26/2023 4:38 AM SENIOR AGRICULTURAL ASSISTANT Oxygen Saturation 96% 10/26/2023 4:38 AM SENIOR AGRICULTURAL ASSISTANT Inhaled Oxygen Concentration - - Weight 90.6 kg (199 lb 11.8 oz) 10/05/2023 7:48 AM SENIOR AGRICULTURAL ASSISTANT Height 170.2 cm (5' 7.01 ) 09/30/2023 7:38 AM CS T Body Mass Index 31.28 09/30/2023 7:38 AM SENIOR AGRICULTURAL ASSISTANT Plan of Treatment Health Maintenance Due Date Last Done Comments Depression Screening 1984 Hepatitis C Screening 1984 DTaP/Tdap/Td Vaccine (1 - Tdap) 1995 Varicella Vaccines (1 of 2 - 13+ 2-dose series) 1997 Hepatitis B Screening 2002 Regular Well Visit/Exam 18-64 2002 Pneumococcal vaccine <65 (1 of 2 - PCV) 2003 Covid-19 Vaccine (2 - 2023-2 5 season) 2024 08/14/2021 Influenza Vaccine (#1) 2024 HPV Vaccines Aged Out No longer eligi ble based on patient's age to complete this topic Insurance [facility] MEDICARE Advance Directives For more information, please contact: [phone] * Full Code (Latest Code Status on File) Date Activated Date Inactivated Comments 09/30/2023 7:23 AM 10/05/2023 5:12 PM Care Teams Real Estate Agency Principal Relationship Specialty Start Date End Date Major Kraft MD PCP - General Internal Medicine 11/07/21 Amos Pabon MD [address] [address] Referring Physician Internal Medicine 10/05/23
[2025-01-23 13:34] LABS: Influenza A QL RT-PCR Negative (Negative); Influenza B QL RT-PCR Negative (Negative); RSV RNA, RT-PCR Negative (Negative); SARS-CoV-2 RNA PCR Negative (Negative)
[2025-01-23] MEDS: KCL 20 MEQ/SW 100 ML 100 ML 50 MEQ IVPB (13:38)
[2025-01-23] MEDS: ONDANSETRON INJ 4 MG/2 ML VIAL IV PUSH (13:38)
--- OUTSIDE RECORDS SUMMARY | 2025-01-23 13:54 | XMS_ITS | Clinical Summary ---
Author Organization [facility] Address [address] [facility] [place] [address] Care Team Providers Care Giving Officer Name Role Phone Eric Oconnell MD Unavailable [phone] Teodoro Lopez Primary Care Provider Unavailabl e Source Comments [facility],non-owned Affiliates and Associated Physician Practices is amultiple site organization consisting of ambulatory clinics and hospital sitesin [place], [place], [place] and [place]. This disclosure is being madepursuant to the Care Everywhere program and may not contain all information available regarding this patient. Last updated 18.[facility] Allergies Active Allergy Reactions Criticality Noted Date [...] affected area as needed Active HYDROcodone-acetamin ophen ([place]aw[place]) 5-325 MG tablet Take 1 (one) tablet [...] Description 03/14/2025 10:00 AM CDT Office Visit [facility] - Orthopedic Surgery [address] [place] [phone] Toño Cabrera MD [address] [facility] [address] [place] [address] Health Maintenance Due Date Last Done Comments [...] HEPATITIS C ANTIBODY Routine 10/01/2021 11:38 AM BUSINESS AGENT Cirrhosis of liver with ascites, unspecified hepatic cirrhosis type from Last 3 Months or Most Recently Relevant to Health Maintenance Results * (ABNORMAL) COMPREHENSIVE METABOLIC PANEL (03/29/2024 4:30 AM CDT) BUN 10 7 - 26 mg/dL 03/29/2024 5:09 AM [facility] Creatinine 0.84 0.71 - 1.16 mg/dL 03/29/2024 5:09 AM [facility] Sodium 135(L) 136 - 145 mmol/L 03/29/2024 5:09 AM [facility] Potassium 3.8 3.5 - 4.5 mmol/L 03/29/2024 5:09 AM [facility] Chloride 105 98 - 107 mmol/L 03/29/2024 5:09 AM CDT [facility] CO2 22 22 - 29 mmol/L 03/29/2024 5:09 AM [facility] Glucose 87 70 - 115 mg/dL 03/29/2024 5:09 AM [facility] Calcium 9.6 8.4 - 10.2 mg/dL 03/29/2024 5:09 AM [facility] Protein Total 7.6 6.0 - 8.3 g/dL 03/29/2024 5:09 AM [facility] Albumin 3.8 3.4 - 5.0 g/dL 03/29/2024 5:09 AM [facility] Bilirubin Total 0.9 0.2 - 1.2 mg/dL 03/29/2024 5:09 AM [facility] Alkaline Phosphatase 81 40 - 150 U/L 03/29/2024 5:09 AM [facility] ALT 20 5 - 55 U/L 03/29/2024 5:09 AM [facility] AST 17 5 - 34 U/L 03/29/2024 5:09 AM [facility] Anion Gap 8 6 - 16 03/29/2024 5:09 AM [facility] BUN/Creatinine Ratio 12 7 - 23 03/29/2024 5:09 AM [facility] Osmolality Calculated 278 275 - 295 mOsm/kg 03/29/2024 5:09 AM [facility] Albumin/Globulin Ratio 1.0(L) 1.1 - 2.3 03/29/2024 5:09 AM [facility] eGFR by CKD-EPI >90 >=90 mL/min/1.7 3 m2 03/29/2024 5:09 AM [facility] Blood BLOOD SPECIMEN / Unknown Lab Venipuncture / Unknown 03/29/2024 4:30 AM T 03/29/2024 4:41 AM [facility] Isaak Ibrahim MD LAB - CHEMISTRY ORDE NIK [facility] Organization Address City/State/ZIP Co de Phone Number [facility] [address] [place] [address], [facility] [phone] * HEPATITIS C ANTIBODY (10/01/2021 11:38 AM BUSINESS AGENT) Hepatitis C Antibody Non-react young Non-reac tive 10/01/2021 1:[address] [facility] Comment:Hepatitis C Antibody screen indicates [...] Lab Venipuncture / Unknown 10/01/2021 11:38 AM BUSINESS AGENT 10/01/2021 11:46 AM BUSINESS AGENT Amos Pabon MD LAB - CHEMISTRY KURT ZARAGOZA [facility] Organization Address City/State/ZIP Co de Phone Number [facility] [address] [place] [address], [facility] [phone] from Last 3 Months or Most Recently Relevant to Health Maintenance Advance Directives * Full Code (Latest Code Status on File) Date Activated Date Inactivated Comments 03/29/2024 12:13 AM 03/29/2024 11:54 PM Care Teams Giving Officer Relationship Specialty Start Date End Date Teodoro Lopez PCP - General 05/17/24 Eric Oconnell MD Hospitalist 10/10/21
--- OUTSIDE RECORDS SUMMARY | 2025-01-23 13:54 | XMS_ITS | Referral Summary ---
Author Organization [facility] Address [address] [place] [address] Care Team Providers Care Public Policy Manager Name Role Phone Major Kraft MD Primary Care Provider Amos Pabon MD Unavailable [phone] Allergies Active Allergy Reactions Criticality Noted Date [...] often do you attend chur ch or oriental orthodox services? Never 09/29/2023 Do you belong to [...] place to sleep or slept in a assisted (including now)? No 09/29/2023 Personal Safety Answer Date Recorded Have you ever been in or are you currently in a harmful physical or emotional relationship or is someone making you feel afraid or unsafe? Denies 09/28/2023 Sex and Gender Information Value Date Recorded Sex Assigned at Not on file Legal Sex Male 1:24 PM JIGGER CROWN POUNCING MACHINE OPERATOR Gender Identity Not on file Sexual Orientation Not on file Occupation Industry Job Start Date Job End Date disabled Not on file Not on file Not on file Last Filed Vital Signs Vital Sign Reading Time Taken Comments Blood Pressure 130/65 10/26/2023 4:38 AM JIGGER CROWN POUNCING MACHINE OPERATOR Pulse 68 10/26/2023 4:38 AM JIGGER CROWN POUNCING MACHINE OPERATOR Temperature 36.5 C (97.7 F) 10/26/2023 4:38 AM JIGGER CROWN POUNCING MACHINE OPERATOR Respiratory Rate 18 10/26/2023 4:38 AM JIGGER CROWN POUNCING MACHINE OPERATOR Oxygen Saturation 96% 10/26/2023 4:38 AM JIGGER CROWN POUNCING MACHINE OPERATOR Inhaled Oxygen Concentration - - Weight 90.6 kg (199 lb 11.8 oz) 10/05/2023 7:48 AM JIGGER CROWN POUNCING MACHINE OPERATOR Height 170.2 cm (5' 7.01 ) 09/30/2023 7:38 AM CS T Body Mass Index 31.28 09/30/2023 7:38 AM JIGGER CROWN POUNCING MACHINE OPERATOR Plan of Treatment Not on file [place] [address] Advance Directives For more information, please contact: [phone] * Full Code (Latest Code Status on File) Date Activated Date Inactivated Comments 09/30/2023 7:23 AM 10/05/2023 5:12 PM Care Teams Public Policy Manager Relationship Specialty Start Date End Date Major Kraft MD PCP - General Internal Medicine 11/07/21 Amos Pabon MD [address] [address] Referring Physician Internal Medicine 10/05/23
--- OUTSIDE RECORDS SUMMARY | 2025-01-23 13:54 | XMS_ITS | Encounter Summary ---
Author Organization [facility] Address [address] [facility] [place] [address] Care Team Providers Care Transit Mechanic Name Role Phone Major Kraft MD Primary Care Provider [phone] Eric Oconnell MD Unavailable [phone] Raya Carty PA-C Primary Care Provider Major Kraft MD Primary Care Provider [phone] Gregorio James MD Primary Care Provider [phone] Teodoro Lopez Primary Care Provider Unavailabl e Reason for Visit * Reason Onset Date Comments Pre-op Instructions 02/26/2022 Encounter Details Date Type Department Care Team (Late st Contact Info) Description 02/26/2022 Patient Outreach [facility] [address] [place] [phone] Ginger Amador, RN Pre-op Instructions Social History [...] Description 03/14/2025 10:00 AM CDT Office Visit [facility] - Orthopedic Surgery [address] [place] [address] Toño Cabrera MD [address] [address] documented as of this encounter Goals Goal [...] on filedocumented in this encounter Care Teams Transit Mechanic Relationship Specialty Start Date End Date Major Kraft MD PCP - General 07/01/21 06/08/22 Raya Carty PA-C [facility] [place] [address] PCP - General 06/09/22 07/05/22 Major Kraft MD PCP - General 07/06/22 08/10/22 Gregorio James MD [address] [place] [phone] PCP - General 08/11/22 05/16/24 Teodoro Lopez PCP - General 05/17/24 Eric Oconnell MD Hospitalist 10/10/21 documented as of this encounter
--- OUTSIDE RECORDS SUMMARY | 2025-01-23 13:54 | XMS_ITS | Encounter Summary ---
Author Organization [facility] Address [address] [facility] [place] [address] Care Team Providers Care Assistant Portfolio Manager Name Role Phone Eric Oconnell MD Unavailable [phone] Gregorio James MD Primary Care Provider [phone] Teodoro Lopez Primary Care Provider Unavailabl e Encounter Details Date Type Department Care Team (Late st Contact Info) Description 05/01/2024 Telephone [facility] - [address] [facility], [place] [address] Nahed Quinonez, ALFREDO Social History [...] need for new PA for Xifaxan. [facility] need [facility] Xifiaxan while taking lactulose. RN place request for pt assistance renewal for pt. New med list including both medications sent to facility. Alma Rojo [facility] notified for pt assistance renewal. documented in this encounter Plan of Treatment Upcoming Encounters Date Type Department Care Team (Late st Contact Info) Description 03/14/2025 10:00 AM CDT Office Visit [facility] - Orthopedic Surgery [address] [place] [address] Toño Cabrera MD [address] [facility] [address] [place] [address] documented as of this encounter Goals Goal [...] on filedocumented in this encounter Care Teams Assistant Portfolio Manager Relationship Specialty Start Date End Date Gregorio James MD [address] [place] [phone] PCP - General 08/11/22 05/16/24 Teodoro Lopez PCP - General 05/17/24 Eric Oconnell MD Hospitalist 10/10/21 documented as of this encounter
--- OUTSIDE RECORDS SUMMARY | 2025-01-23 13:54 | XMS_ITS | Clinical Summary ---
Author Organization [facility] Address [address] [place] [address] Care Team Providers Care Digital Archivist Name Role Phone Major Kraft MD Primary Care Provider [phone] Amos Pabon MD Unavailable [phone] Allergies Active Allergy Reactions Criticality Noted Date [...] uit: Not Asked; Counseling Given: Not Answered [facility] Utilities Answer Date Recorded In the past 12 months has e [employer], [employer], oil, or water [employer] threatened to shut off services in your [...] week 09/29/2023 How often do you attend [facility] ch or hinduism services? Never 09/29/2023 Do you belong to any clubs o r organizations such as zoroastrianism groups, unions, fraternal or athletic groups, or [...] on file Legal Sex Male 1:24 PM PLANT AND MAINTENANCE TECHNICIAN Gender Identity Not on file Sexual Orientation Not on file Occupation Industry Job Start Date Job End Date disabled Not on file Not on file Not on file Obstetrics History Last Filed Vital Signs Vital Sign Reading Time Taken Comments Blood Pressure 130/65 10/26/2023 4:38 AM PLANT AND MAINTENANCE TECHNICIAN Pulse 68 10/26/2023 4:38 AM PLANT AND MAINTENANCE TECHNICIAN Temperature 36.5 C (97.7 F) 10/26/2023 4:38 AM PLANT AND MAINTENANCE TECHNICIAN Respiratory Rate 18 10/26/2023 4:38 AM PLANT AND MAINTENANCE TECHNICIAN Oxygen Saturation 96% 10/26/2023 4:38 AM PLANT AND MAINTENANCE TECHNICIAN Inhaled Oxygen Concentration - - Weight 90.6 kg (199 lb 11.8 oz) 10/05/2023 7:48 AM PLANT AND MAINTENANCE TECHNICIAN Height 170.2 cm (5' 7.01 ) 09/30/2023 7:38 AM CS T Body Mass Index 31.28 09/30/2023 7:38 AM PLANT AND MAINTENANCE TECHNICIAN Plan of Treatment Health Maintenance Due Date [...] patient's age to complete this topic Insurance [facility] MEDICARE Advance Directives For more information, please contact: [phone] * Full Code (Latest Code Status on File) Date Activated Date Inactivated Comments 09/30/2023 7:23 AM 10/05/2023 5:12 PM Care Teams Digital Archivist Relationship Specialty Start Date End Date Major Kraft MD PCP - General Internal Medicine 11/07/21 Amos Pabon MD [address] [address] Referring Physician Internal Medicine 10/05/23
[2025-01-23] MEDS: SODIUM CHLORIDE 0.9% IV 250 ML 100 ML (14:03)
[2025-01-23] MEDS: LACTULOSE 20 GM/30 ML UDC PO (14:50)
[2025-01-23] MEDS: POTASSIUM CHLORIDE 20 MEQ PACKET (FOR LIQUID) 40 MEQ PO (14:50)
== END 2025-01-23 16:04 | disposition home or self-care (01) ==
PROVIDERS: Emergency Provider Emergency Medicine; PCP Hospitalist
DX: R11.2 Nausea with vomiting, unspecified (principal); Z20.822 Contact with and (suspected) exposure to COVID-19; F17.210 Nicotine dependence, cigarettes, uncomplicated; Z79.01 Long term (current) use of anticoagulants; Z86.718 Personal history of other venous thrombosis and embolism; D64.9 Anemia, unspecified; F32.A Depression, unspecified; F41.9 Anxiety disorder, unspecified
CPT/HCPCS: 36415; 80053; 82140; 85025; 87637; 96365; 96366; 96375; 99284; A9270; J2405; J3480; J7050